=== PATIENT | female | born 1945 | race Caucasian/White ===

== ENCOUNTER 2017-07-09 14:15 | Emergency (ER) | payer MEDICARE, SELFPAY ==
[2017-07-09 14:16] VITALS: BP 149/80; PULSE 76; RESP 14; TEMP 36.8; O2SAT 95; BMI 26.4
--- NOTE | 2017-07-09 14:45 | ED.DCSUM_ITS ---
- ER Visit Summary Date of Service: 07/09/17 Chief Complaint: Dental pain History of Present Illness: The patient is a 71 F with right upper dental pain for the past couple days. She is now developing edema to her upper lip. Patient states she has terrible teeth. She does not currently have a dentist. Past history is reviewed and does include atrial fibrillation. She is currently on Coumadin. Physical Examination: Vital signs are unremarkable. Patient sitting in bedside chair no acute distress. Head and neck examination reveals multiple decayed teeth. The right maxillary central incisor is decayed down to the gumline with surrounding gum edema. There is no trismus. She has focal edema of the upper lip without focal abscess. There is no skin erythema or warmth. Heart is regular rate and rhythm. Lung sounds are clear. Test Results: [] Emergency Department Course and Treatment: Patient be treated with Pen-Vee K, first dose given here. She is given a dental clinic referral sheet. Treatment Plan: [] Disposition: Discharge Impression: Odontalgia This note was generated with Copanion dictation software. It may contain incorrect words, spelling, and punctuation that were not noted in review of the chart prior to signing ED Disposition - Plan for ED Patient: Chief Complaint: Dental Referrals: Monroe Burden MD [Primary Care Provider] -
--- NOTE | 2017-07-09 14:45 | ED.DEP ---
ED Disposition - Plan for ED Patient: Disposition: Home or Assisted Living Chief Complaint: Dental Instructions: ED Tooth Pain Prescriptions: Penicillin V Potassium 500 mg PO 4X/DAY #40 tablet Referrals: Monroe Burden MD [Primary Care Provider] - Additional Instructions: Dental list provided.
[2017-07-09] MEDS: Penicillin Vk 250 MG Tablet 500 MG PO (14:58)
[2017-07-09 14:59] VITALS: BP 151/76; PULSE 89; RESP 16; O2SAT 99
== END 2017-07-09 15:00 | disposition home or self-care (01) ==
PROVIDERS: Emergency Provider Emergency Medicine; Family Provider Family Medicine; PCP Family Medicine
DX: K08.89 Other specified disorders of teeth and supporting structures (principal); K02.9 Dental caries, unspecified; R22.0 Localized swelling, mass and lump, head; J44.9 Chronic obstructive pulmonary disease, unspecified; K21.9 Gastro-esophageal reflux disease without esophagitis; I10 Essential (primary) hypertension; Z86.39 Personal history of other endocrine, nutritional and metabolic disease; I48.91 Unspecified atrial fibrillation; Q87.40 Marfan syndrome, unspecified; Z79.01 Long term (current) use of anticoagulants; Z79.899 Other long term (current) 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
CPT/HCPCS: 99283

== ENCOUNTER 2019-05-24 15:53 | Inpatient (IN) | payer MEDICARE, SELFPAY ==
[2019-05-24] VITALS (11 sets, daily range): BP systolic 113–134; BP diastolic 71–90; PULSE 99–126; RESP 16–24; TEMP 36.4–36.8; O2SAT 93–911; BMI 28.0; BMI 28.1; BMI 27.8
--- NOTE | 2019-05-24 16:12 | EKG12_ITS ---
Test Reason : Blood Pressure : / mmHG Vent. Rate : 129 BPM Atrial Rate : 337 BPM P-R Int : 000 ms QRS Dur : 080 ms QT Int : 354 ms P-R-T Axes : 000 031 033 degrees QTc Int : 518 ms Atrial flutter with variable A-V block Abnormal ECG Confirmed by EDWARD MARKS, REJI ([id number]), marketing editor GAUDENCIO DALAL ([id number] on 05/27/2019 1:35:42 PM Referred By: Daphney Reynoso Confirmed By:REJI LEON MD
--- NOTE | 2019-05-24 16:12 | RAD_ITS ---
STUDY: X-RAY CHEST REASON FOR EXAM: Female, 73 years old. INCREASED SOB, DIAGNOSED WITH PNEUMONIA YESTERDAY TECHNIQUE: AP portable COMPARISON: October 19, 2014 FINDINGS: There is interstitial thickening in both lower lobes. There is nodular-type infiltrate in the right upper lobe.. There is no demonstrated pleural abnormality. Heart is upper normal size.. Normal mediastinum and claudia. Normal visualized pulmonary arteries. Mildly calcified aortic arch and descending thoracic aorta. Dorsal spine and shoulders demonstrate degenerative change. Normal visualized ribs, and clavicles. There is no demonstrated abnormality of the visualized soft tissue structures of the upper abdomen. RAD/Chest 1 View (Portable) IMPRESSION: Bilateral lower lobe interstitial thickening. Focal infiltrate in the right upper lobe Electronically Signed: Monroe Burkett MD at 16:40 EST , Service support ,
--- NOTE | 2019-05-24 16:14 | ED.VISSUMM ---
- ER Visit Summary Date of Service: 05/24/19 Chief Complaint: Shortness of breath History of Present Illness: The patient is a 73 F presenting with shortness of breath. She states this started 2 days ago. She was seen by her primary care physician yesterday and was diagnosed with pneumonia. She was started on doxycycline. She states he PCP called her and advised to go to the ER for further evaluation. She complains of worsening short of breath and productive cough. She denies fever. Denies chest pain. She states that she has history of A. fib. She cannot always tell when she is in A. fib. Her heart rate has been fast at home. Denies other complaints. Physical Examination: Vitals are stable. Heart rate 126. Patient is afebrile. Alert no acute distress. HEENT exam is unremarkable. Neck is supple. Lungs are wheezing bilaterally. Heart is irregularly irregular Abdomen is soft nontender nondistended. Extremities are unremarkable. Skin is warm and dry. No focal neurologic deficit. Remainder of exam is unremarkable. Emergency Department Course and Treatment: Patient was given albuterol, Atrovent aerosols. She was given Cardizem. Chest xray shows bilateral lower lobe interstitial thickening. Focal infiltrate in the right upper lobe. CBC, chemistries unremarkable other than sodium 134, potassium 3.3, glucose 149. INR is 1.9. Troponin is negative. Lactic acid 1.6. Blood cultures were sent. Influenza negative. Patient was given Rocephin, Zithromax IV. Repeat heart rate 105. Discussed with the hospitalist for admission. Disposition: Admission Impression: Pneumonia, A. fib with RVR This note was generated with Pieceable dictation software. It may contain incorrect words, spelling, and punctuation that were not noted in review of the chart prior to signing ED Disposition - Plan for ED Patient: Referrals: Wes Magallon MD [Primary Care Provider] -
[2019-05-24] MEDS: Albuterol 2.5 MG/3 ML VIAL.NEB. INHALATION ×3 (16:30)
[2019-05-24] MEDS: Ipratropium/Albuterol Sulfate 3 ML AMPUL.NEB INHALATION ×2 (16:30→19:41)
[2019-05-24] MEDS: dilTIAZem 25 MG/5 ML Vial 10 MG IV BOLUS (16:35)
[2019-05-24] MEDS: 0.9% Normal Saline 1,000 ML 999 ML IV (16:35)
[2019-05-24 16:48] LABS: Absolute Lymphocyte Count 1.88 X10^3/uL (0.83-4.51); Absolute Neutrophil Count 4.7 X10^3/uL (2.0-7.7); Basophil# 0.04 X10^3/uL; Basophil% 0.5 % (0-1); Eosinophil# 0.12 X10^3/uL; Eosinophils% 1.6 % (0-5); Hematocrit 38.5 % (37-47); Hemoglobin 12.5 g/dL (12.0-15.0); Lymphocyte # 1.88 X10^3/ul (4.0); Mean Corp Hgb Conc 32.5 g/dL (32-36); Mean Corpuscular Hgb 27.6 pg (27.0-32.0); Mean Platelet Vol. 9.1 fl (6.2-12.0); Monocyte# 0.76 X10^3/uL; Monocyte% 10.1 % (0-10); NRBC Flagged by Analyzer 0 % (0-5); Neutrophil # 4.69 X10^3/uL (2.7-7.7); Neutrophil % 62.3 % (47-70); Platelet Count 280 K/mm3 (150-450); RBC Distribution Width CV 15.2 % (11.6-14.6); RBC Distribution Width SD 46.5 fl (35.1-43.9); Red Blood Count 4.53 M/mm3 (4.2-5.4); White Blood Count 7.5 K/mm3 (4.4-11.0)
[2019-05-24 16:54] LABS: Anion Gap 8 (5-15); BUN 10 mg/dL (7-18); BUN/Creat Ratio 15.4 RATIO (10-20); Calcium,Total 8.6 mg/dL (8.5-10.1); Chloride 100 mmol/L (98-107); Creatinine, Serum 0.65 mg/dL (0.55-1.02); EST Glomerular Filtration Rate 95 mL/min (>60); Est Glom Filt Rate - Afr Amer 115 mL/min (>60); Estimated Creatinine Clearance 37.81 ml/min; Glucose 149 mg/dL (74-106); Lactic Acid 1.6 mmol/L (0.4-1.9); Potassium 3.3 mmol/L (3.5-5.1); Sodium Level 134 mmol/L (136-145)
[2019-05-24 16:55] LABS: International Normalized Ratio 1.9; Prothrombin Time (Protime)PT. 22.1 SECONDS (11.7-14.9)
--- NOTE | 2019-05-24 18:24 | PCM.HP.STD ---
Problem List (1) PNA (pneumonia) Status: Acute Qualifiers: Pneumonia type: due to unspecified organism Laterality: right (2) Hyponatremia Status: Acute (3) Hypokalemia Status: Acute (4) Pulmonary hypertension Status: Chronic Comment: PA systolic is 44 in 2018 (5) COPD (chronic obstructive pulmonary disease) Status: Chronic (6) GERD (gastroesophageal reflux disease) Status: Chronic (7) HLD (hyperlipidemia) Status: Chronic (8) HTN (hypertension) Status: Chronic (9) Marfans syndrome Status: Chronic (10) PAF (paroxysmal atrial fibrillation) Status: Chronic Comment: with RVR (11) Systolic CHF Status: Resolved (12) Chronic anticoagulation Status: Chronic (13) Subtherapeutic international normalized ratio (INR) Status: Acute History of Present Illness Date of Admission: 05/24/19 Chief Complaint: Shortness of breath The patient is a 73 year old F with a past medical history of paroxysmal atrial fibrillation, Marfan's syndrome, hypertension, pulmonary hypertension with a PA systolic estimated at 44, GERD, hyperlipidemia, COPD/asthma and chronic anticoagulation with warfarin who was seen by Tobi WANG on 05/23/19 and had a CXR showing PNA. She was started on Doxycycline and sent home. She presented to the ED at [facility] on 05/24/19 c/o increasing SOB. She has a cough productive of clear sputum. She denies fevers but states that she feels hot and cold at times. She denies any shaking chills. She denies any chest pain. He does not wear oxygen at home. She did not have a flu shot this year. Vital signs at presentation to the emergency room are temperature 97.5, pulse rate 126, blood pressure 132/90, respiratory rate 22 and she was 94% saturated on room air at presentation to the emergency room at 3:55 PM. She is currently on a 2 L nasal cannula with a respiratory rate of 22 and a pulse ox of 97%. She received 1 L of normal saline and heart rate is currently 105. She denies lightheadedness. She denies any swelling in her legs. CBC shows a white blood cell count of 7.5 with 62.3% neutrophils. Hemoglobin and platelets are within normal limits. INR is subtherapeutic at 1.9. Sodium is low at 134 and the potassium is low at 3.3. BUN is 10 with a creatinine of 0.65. Random blood sugar is elevated at 149 and she has no history of diabetes mellitus. Lactic acid was normal at 1.6. Troponin was less than 0.015. Portable chest x-ray shows infiltrate on the right side of the chest. She received Rocephin in the emergency room and has been taking doxycycline. She is being admitted to the hospital with a diagnosis of pneumonia and shortness of breath. Past Medical History Past Medical History (Chronic Problems): Chronic Problems Pulmonary hypertension (Chronic) PA systolic is 44 in 2018 Chronic anticoagulation (Chronic) HTN (hypertension) (Chronic) GERD (gastroesophageal reflux disease) (Chronic) HLD (hyperlipidemia) (Chronic) COPD (chronic obstructive pulmonary disease) (Chronic) PAF (paroxysmal atrial fibrillation) (Chronic) with RVR Marfans syndrome (Chronic) Allergies Latex, Natural Rubber Allergy (Verified 05/24/19 15:54) Rash rosuvastatin calcium [From Crestor] Allergy (Verified 05/24/19 18:07) myalgias ibuprofen Adverse Reaction (Verified 05/24/19 15:54) Nausea Home Medications: Ambulatory Orders Medication Instructions Recorded Atenolol [Tenormin (beta ted)] 25 mg PO BID #60 tablet 01/05/14 Omeprazole [Prilosec] 40 mg PO DAILY 10/19/14 diltiazem HCl 120 mg 120 mg PO DAILY #90 cap 02/05/19 capsule,extended release 24 hr Doxycycline Monohydrate 100 mg PO BID 05/24/19 Flecainide Acetate 50 mg PO BID 05/24/19 Furosemide [Lasix] 20 mg PO DAILY 05/24/19 Potassium Chloride 10 meq PO DAILY 05/24/19 Warfarin Sodium 2 mg PO MOFR 05/24/19 Warfarin Sodium 4 mg PO SUTUWETHSA 05/24/19 Surgical History: - - removal of fallopian tube for a tubal . Hysterectomy for an enlarged uterus, no cancer. Surgery on her eyes for displacement of the lens due to Marfan's Psychiatric History: No pertinent psych hx [employer] History: - - she is with 1 miscarriage and 1 tubal Lives: Spouse/ Significant Other Smoking Status: Never smoker Tobacco Use: Non-smoker Alcohol: None Drugs: None - *Family History Maternal History Items: Cancer, Diabetes, - - Her mother at the age of 78 of complications secondary to colon cancer. Her mother had diabetes and there is a history of diabetes on the maternal side of the family. Paternal History Items: - - Her father at the age of 88 of a myocardial infarction. Sibling History Items: Diabetes, - - She has 3 brothers who are all secondary to ruptured aneurysms from Marfan syndrome. She has a sister who does not have Marfan syndrome and has diet controlled diabetes mellitus. Review of Systems Constitutional: Reports: Chills - feels cold but, no shaking chills, Malaise. Denies: Anorexia, Fever, Weight Change Eyes: Denies: Blurred vision HEENT: Denies: Head Aches, Nasal Congestion, Sinus Congestion, Sinus Drainage, Sore Throat Cardiovascular: Denies: Chest Pain, Edema, Heaviness, Light Headedness, Orthopnea, Palpitations Respiratory: Reports: Cough, Sputum production - clear. Denies: Shortness of breath at rest Gastrointestinal: Denies: Abdominal Pain, Diarrhea, Nausea, Vomiting Genitourinary: Denies: Dysuria Musculoskeletal: Denies: Joint Pain, Joint Tenderness Skin: Denies: Jaundice, Rash, Wounds Neurological: Denies: Confusion, Focal weakness, Numbness, Tingling, Tremor, Seizures Psychiatric: Denies: Anxiety, Depression, Homicidal Ideations, Suicidal Ideations Endocrine: Denies: Change in Body Habitus Hematologic/ Lymphatic: Denies: Easy Bruising, Easy Bleeding, Hx of blood clot VTE Information - Inpt Only VTE Present on Admission: No VTE Mechan Device Prophylaxis: None VTE Pharm Prophylaxis ordered?: No Reason prophylaxis not ordered:: Treatment Not Indicated - she is on Warfarin for PAF Patient Problems: Active and Suspected Problems PNA (pneumonia) (Acute) Hyponatremia (Acute) Hypokalemia (Acute) Subtherapeutic international normalized ratio (INR) (Acute) - Physical Exam Vitals/I&O's: Vital Signs Temp Pulse Resp BP Pulse Ox 97.7 F L 105 H 22 H 116/82 H 97 05/24/19 17:00 05/24/19 17:00 05/24/19 17:00 05/24/19 17:00 05/24/19 17:00 Oxygen Flow Rate (L/min) 2 Oxygen Delivery Method Nasal Cannula Weight: 148 lb 12.992 oz Body Mass Index (BMI) 28.0 General: Alert, Oriented x3, Cooperative, No apparent distress, Well developed, Well nourished, - - did not cough while I was in the room HEENT: Atraumatic, PERRLA, EOMI, Normocephalic Oral: No Gingival or Mucosal Lesions/ Ulcerations, Dry Mucosa Neck: Supple, No JVD, Negative Carotid Bruits, No Nodes, Trachea Midline, - - Carotids have brisk upstroke and good pulse volume bilaterally. Lungs: - - Coarse crackles and rhonchi on the right side, left lung is clear to auscultation. She has oxygen in place at 2 L/min. She is not tachypneic and she has no conversational dyspnea and no accessory muscle use. Cardiovascular: Normal S1, Normal S2, No murmurs, Irregular Rate, No rub noted, No Gallop Abdomen: Bowel Sounds Present, Soft, Non Tender, Non-Distended Extremities: No clubbing, No cyanosis, No edema, Peripheral Pulses Normal, - - She has superficial varicosities of both lower extremities. Skin: No rashes Musculoskeletal: No Muscle Wasting Neurological: Cranial nerves II-XII grossly intact, Neuro grossly intact Psych/Mental Status: Appropriate, Flat Affect Microbiology Past 72 Hours 05/24/19 16:20 Mucosa - Nose Influenza Types A,B Direct FA (MORIAH) - Final Laboratory Results 05/24/19 16:12: WBC 7.5, RBC 4.53, Hgb 12.5, Hct 38.5, MCV 85.0, MCH 27.6, MCHC 32.5, RDW Std Deviation 46.5 H, RDW Coeff of Angelo 15.2 H, Plt Count 280, MPV 9.1, Immature Gran % (Auto) 0.500, Neut % (Auto) 62.3, Lymph % (Auto) 25.0, [place] % (Auto) 10.1 H, Eos % (Auto) 1.6, Baso % (Auto) 0.5, Absolute Neuts (auto) 4.7, Absolute Lymphs (auto) 1.88, Nucleated RBC % 0 05/24/19 16:12: PT 22.1 H, INR 1.9 05/24/19 16:12: Sodium 134 L, Potassium 3.3 L, Chloride 100, Carbon Dioxide 26.0, Anion Gap 8, BUN 10, Creatinine 0.65, Estim Creat Clear Calc 37.81, Est GFR (MDRD) Af Amer 115, Est GFR (MDRD) Non-Af 95, BUN/Creatinine Ratio 15.4, Glucose 149 H, Calcium 8.6, Troponin I < 0.015 05/24/19 16:12: Lactic Acid 1.6 Current Medications Ceftriaxone Sodium (Rocephin) 1 gm in 50 mls @ 100 mls/hr IV X1 ONE Stop: 05/24/19 18:40 Assessment/Plan All Active Problems PNA (pneumonia) (Acute) Hyponatremia (Acute) Hypokalemia (Acute) Subtherapeutic international normalized ratio (INR) (Acute) Systolic CHF (Resolved) Impressions 1. Right side pneumonia, non-severe, with SOB but no hypoxia. Continue Doxycycline and start Rocephin. Influenza swab is negative. Will order Legionella and streptococcal antigens in the urine, respiratory panel and a sputum culture. Blood cultures were sent from the emergency department. 2. Paroxysmal atrial fibrillation with rapid ventricular response-improved with hydration. 3. Hyponatremia-mild. She was administered 1 L of normal saline in the emergency room. Will recheck CMP in the a.m. 4. Hypokalemia-supplementation ordered. Recheck lab in the a.m. 5. COPD/asthma in a patient who has never been a smoker. She has coarse rhonchi. Will order DuoNebs every 6 hours and every 2 hours PRN albuterol aerosols for increased shortness of breath/wheezing. Incentive spirometer has been ordered. No steroids at this time but, will consider if she has wheezing rather than coarse rhonchi. 6. Hyperglycemia with no hx of DM II - HGBA1C ordered. 7. Hyperlipidemia/Marfan syndrome/pulmonary hypertension/GERD/hypertension - continue home medications Check a mag now and supplement to keep the MAG at around 2. Recheck lab in the AM PA and LAT CXR in the AM.......portable CXR is a poor film She does not have sepsis. Tachycardia is due to dehydration and improved significantly after a fluid bolus. WBC is normal with a normal diff. LA is WNL and she is AF. She is not hypoxic and she is not tachypneic on my exam. Code Visit Inpatient E&M: 96497 Init Hosp L2
[2019-05-24] MEDS: Ceftriaxone 1 GM/50 ML BAG IV (19:06)
[2019-05-24] MEDS: Atenolol 25 MG Tablet PO (20:12)
[2019-05-24] MEDS: guaiFENesin 1,200 MG Tablet 1200 MG PO (20:12)
[2019-05-24] MEDS: Flecainide 100 MG Tablet 50 MG PO (20:20)
[2019-05-24] MEDS: Doxycycline 100 MG CAPSULE PO (22:47)
[2019-05-25] VITALS (12 sets, daily range): BP systolic 113–131; BP diastolic 71–86; PULSE 96–124; RESP 18–20; TEMP 36.4–36.7; O2SAT 92–96
[2019-05-25 01:37] LABS: M R Staph aureus DNA By PCR Negative (Negative); Probe Check PASS; Specimen Processing Control PASS
[2019-05-25] MEDS: Ipratropium/Albuterol Sulfate 3 ML AMPUL.NEB INHALATION ×2 (06:48→12:59)
[2019-05-25 06:58] LABS: Absolute Lymphocyte Count 1.94 X10^3/uL (0.83-4.51); Absolute Neutrophil Count 4.1 X10^3/uL (2.0-7.7); Basophil# 0.03 X10^3/uL; Basophil% 0.4 % (0-1); Eosinophil# 0.17 X10^3/uL; Eosinophils% 2.4 % (0-5); Hematocrit 35.7 % (37-47); Hemoglobin 11.4 g/dL (12.0-15.0); Lymphocyte # 1.94 X10^3/ul (4.0); Lymphocyte % 27.4 % (19-41); Mean Corp Hgb Conc 31.9 g/dL (32-36); Mean Corpuscular Hgb 27.1 pg (27.0-32.0); Mean Platelet Vol. 9.2 fl (6.2-12.0); Monocyte# 0.82 X10^3/uL; Monocyte% 11.6 % (0-10); NRBC Flagged by Analyzer 0 % (0-5); Neutrophil # 4.09 X10^3/uL (2.7-7.7); Neutrophil % 57.8 % (47-70); POSITIVE MORPHOLOGY YES; Platelet Count 258 K/mm3 (150-450); RBC Distribution Width CV 15.3 % (11.6-14.6); RBC Distribution Width SD 47.4 fl (35.1-43.9); White Blood Count 7.1 K/mm3 (4.4-11.0)
[2019-05-25 07:00] LABS: Differential Indicated SCAN CRITERIA MET
[2019-05-25 07:04] LABS: International Normalized Ratio 2.3; Prothrombin Time (Protime)PT. 25.4 SECONDS (11.7-14.9)
[2019-05-25 07:12] LABS: ALB/GLOB Ratio 0.9 RATIO (0.9-2.4); AST(SGOT) 24 U/L (15-37); Alanine Aminotransfer ALT/SGPT 25 U/L (13-56); Albumin, Serum 2.9 g/dL (3.2-5.0); Alkaline Phosphatase 77 U/L (45-117); Anion Gap 6 (5-15); BUN 9 mg/dL (7-18); BUN/Creat Ratio 17.7 RATIO (10-20); Calcium,Total 7.9 mg/dL (8.5-10.1); Chloride 105 mmol/L (98-107); Creatinine, Serum 0.51 mg/dL (0.55-1.02); EST Glomerular Filtration Rate 126 mL/min (>60); Est Glom Filt Rate - Afr Amer 152 mL/min (>60); Estimated Creatinine Clearance 37.81 ml/min; Globulin 3.4 g/dL (2.2-4.2); Glucose 84 mg/dL (74-106); Magnesium 1.9 mg/dL (1.6-2.6); Potassium 3.8 mmol/L (3.5-5.1); Protein, Total 6.3 g/dL (6.4-8.2); Sodium Level 137 mmol/L (136-145)
[2019-05-25 07:48] LABS: Differential Comment SCANNED; Reactive Lymphocyte 1+
[2019-05-25] MEDS: Atenolol 25 MG Tablet PO ×2 (07:52→19:56)
[2019-05-25] MEDS: dilTIAZem CD 120 MG Capsule PO (07:52)
[2019-05-25] MEDS: guaiFENesin 1,200 MG Tablet 1200 MG PO ×2 (07:52→19:56)
[2019-05-25] MEDS: Pantoprazole Sodium 40 MG Tablet PO (07:52)
[2019-05-25] MEDS: Doxycycline 100 MG CAPSULE PO (07:53)
[2019-05-25] MEDS: Flecainide 100 MG Tablet 50 MG PO ×2 (07:53→19:56)
--- NOTE | 2019-05-25 10:40 | PCM.PN.HOSP ---
Patient Problems: Active and Suspected Problems PNA (pneumonia) (Acute) Hyponatremia (Acute) Hypokalemia (Acute) Subtherapeutic international normalized ratio (INR) (Acute) Subjective: Pt states that she is feeling a bit better today. Coughing less with less sputum production. Appetite is okay. Vitals/I&O's: Vital Signs Temp Pulse Resp BP Pulse Ox 98.0 F 108 H 20 H 113/71 92 05/25/19 10:20 05/25/19 10:20 05/25/19 10:20 05/25/19 10:20 05/25/19 10:20 Oxygen Flow Rate (L/min) 2 Oxygen Delivery Method Nasal Cannula Weight: 67.3 kg Body Mass Index (BMI) 27.8 Intake and Output for Last 24 Hours 05/23/19 05/24/19 05/25/19 23:59 23:59 23:59 Intake Total 1170 / 1170 50 / 50 Output Total 600 / 600 50 / 50 Balance 570 / 570 0 / 0 General: Alert, Oriented x3, Cooperative, No apparent distress, Well developed, Well nourished, - - friends at bedside, appears well, non-toxic appearing HEENT: Atraumatic, PERRLA, EOMI, Normocephalic, EAC Clear Oral: Moist Mucosa, No Gingival or Mucosal Lesions/ Ulcerations Neck: Supple, No JVD, Negative Carotid Bruits, Negative Hepatojugular Reflux, No Nodes, No Nuchal Rigidity, Trachea Midline, Thyroid Normal Size and Texture Lungs: No wheeze, No rales, Rhonchi - R ML, - - no accesory mm use Cardiovascular: Normal S1, Normal S2, No murmurs, Irregular Rate, No rub noted, No Gallop, Tachycardic - mild, - - irreg/irreg Extremities: No clubbing, No cyanosis, No edema, Capillary Refill Less than 3 Seconds Skin: No rashes, No breakdown, - - abnormal nail formation Musculoskeletal: No Tenderness to Palpation of Joints or Extremities, No Muscle Wasting Lymphatic: No Cervical, Supraclavicular, or Inguinal Adenopathy Neurological: Cranial nerves II-XII grossly intact, Deep Tendon Reflexes 2+/4 and Symmetrical, Neuro grossly intact, Motor Exam 5/5 strength throughout Psych/Mental Status: Normal Affect, Appropriate, Alert and oriented to time, place, person, mood and affect Microbiology Past 72 Hours 05/24/19 18:53 Urine, Clean Catch Legionella Antigen - Final 05/24/19 18:53 Urine, Clean Catch Streptococcus pneumoniae Antigen (M - Final 05/24/19 16:20 Mucosa - Nose Influenza Types A,B Direct FA (MORIAH) - Final Laboratory Results 05/24/19 16:12: WBC 7.5, RBC 4.53, Hgb 12.5, Hct 38.5, MCV 85.0, MCH 27.6, MCHC 32.5, RDW Std Deviation 46.5 H, RDW Coeff of Angelo 15.2 H, Plt Count 280, MPV 9.1, Immature Gran % (Auto) 0.500, Neut % (Auto) 62.3, Lymph % (Auto) 25.0, [place] % (Auto) 10.1 H, Eos % (Auto) 1.6, Baso % (Auto) 0.5, Absolute Neuts (auto) 4.7, Absolute Lymphs (auto) 1.88, Nucleated RBC % 0 05/24/19 16:12: PT 22.1 H, INR 1.9 05/24/19 16:12: Sodium 134 L, Potassium 3.3 L, Chloride 100, Carbon Dioxide 26.0, Anion Gap 8, BUN 10, Creatinine 0.65, Estim Creat Clear Calc 37.81, Est GFR (MDRD) Af Amer 115, Est GFR (MDRD) Non-Af 95, BUN/Creatinine Ratio 15.4, Glucose 149 H, Calcium 8.6, Troponin I < 0.015 05/24/19 16:12: Lactic Acid 1.6 05/24/19 16:12: Magnesium 2.0 05/25/19 00:15: MRSA (PCR) Negative 05/25/19 06:10: WBC 7.1, RBC 4.20, Hgb 11.4 L, Hct 35.7 L, MCV 85.0, MCH 27.1, MCHC 31.9 L, RDW Std Deviation 47.4 H, RDW Coeff of Angelo 15.3 H, Plt Count 258, MPV 9.2, Immature Gran % (Auto) 0.400, Neut % (Auto) 57.8, Lymph % (Auto) 27.4, [place] % (Auto) 11.6 H, Eos % (Auto) 2.4, Baso % (Auto) 0.4, Absolute Neuts (auto) 4.1, Absolute Lymphs (auto) 1.94, Nucleated RBC % 0, Differential Comment SCANNED, Reactive Lymphocytes 1+ 05/25/19 06:10: PT 25.4 H, INR 2.3 05/25/19 06:10: Sodium 137, Potassium 3.8, Chloride 105, Carbon Dioxide 26.0, Anion Gap 6, BUN 9, Creatinine 0.51 L, Estim Creat Clear Calc 37.81, Est GFR (MDRD) Af Amer 152, Est GFR (MDRD) Non-Af 126, BUN/Creatinine Ratio 17.7, Glucose 84, Calcium 7.9 L, Phosphorus 3.0, Magnesium 1.9, Total Bilirubin 0.40, AST 24, ALT 25, Alkaline Phosphatase 77, Total Protein 6.3 L, Albumin 2.9 L, Globulin 3.4, Albumin/Globulin Ratio 0.9 Current Medications Acetaminophen (Tylenol) 650 mg PO Q6H PRN PRN PRN Reason: Pain Score 1-3/Temp > 100.7 F Albuterol Sulfate (Ventolin Aerosols) 2.5 mg INHALATION Q2H PRN PRN PRN Reason: SOB/Wheezing Albuterol/Ipratropium (Duoneb) 3 ml INHALATION Q6H.RT [facility] Last Admin: 05/25/19 06:48 Dose: 3 ml Documented by: Atenolol (Tenormin (Beta Barber)) 25 mg PO BID [facility] Last Admin: 05/25/19 07:52 Dose: 25 mg Documented by: Bisacodyl (Dulcolax) 5 mg PO DAILY PRN PRN PRN Reason: Constipation Diltiazem HCl (Cardizem Cd) 120 mg PO DAILY [facility] Last Admin: 05/25/19 07:52 Dose: 120 mg Documented by: Diltiazem HCl (Cardizem) 30 mg PO Q6H PRN PRN PRN Reason: HR > 110 Docusate Sodium (Colace) 100 mg PO BID [facility] Last Admin: 05/25/19 07:52 Dose: Not Given Documented by: Doxycycline Monohydrate (Doxycycline) 100 mg PO BID [facility] Last Admin: 05/25/19 07:53 Dose: 100 mg Documented by: Flecainide Acetate (Tambocor) 50 mg PO BID [facility] Last Admin: 05/25/19 07:53 Dose: 50 mg Documented by: Guaifenesin (Mucinex) 1,200 mg PO BID [facility] Last Admin: 05/25/19 07:52 Dose: 1,200 mg Documented by: Ceftriaxone Sodium 2 gm/ (Sodium Chloride) 50 mls @ 100 mls/hr IV Q24 [facility] Stop: 06/01/19 10:01 Last Infusion: 05/25/19 10:17 Dose: Infused Documented by: Melatonin (Melatonin) 3 mg PO QHS PRN PRN PRN Reason: INSOMNIA Pantoprazole Sodium (Protonix) 40 mg PO DAILY [facility] Last Admin: 05/25/19 07:52 Dose: 40 mg Documented by: Potassium Chloride (K-Dur) 10 meq PO DAILY@0800 [facility] Last Admin: 05/25/19 07:51 Dose: 10 meq Documented by: Prochlorperazine Edisylate (Compazine Iv) 5 mg IV Q6H PRN PRN PRN Reason: NAUSEA/VOMITING Sodium Chloride () 10 - 40 ml IV UD PRN PRN Reason: SALINE FLUSH Warfarin Sodium (Coumadin (Pbkc)) 4 mg PO DAILY@1700 [facility] STROKE Vital Signs/Narrative: Vital Signs Temp Pulse Resp BP Pulse Ox 05/25/19 10:20 98.0 F 108 H 20 H 113/71 92 05/25/19 06:48 108 H Medical Necessity - Tobacco Use Smoking Status: Never smoker Tobacco Use: Non-smoker Assessment/Plan All Active Problems PNA (pneumonia) (Acute) Hyponatremia (Acute) Hypokalemia (Acute) Subtherapeutic international normalized ratio (INR) (Acute) Systolic CHF (Resolved) RML PNA -S. Pneumo and legionella neg -flu neg -sputum and blood cx pending -continue abx as ordered and await cx -CXR PA and Lat are pending -consider CT chest -SpO2 92-94 on N/C at 2 L -add IS Hyponatremia -resolved Hypokalemia -resolved PAH -RVSP of 44 2018 -monitor for s/o volume overload PAF -currently in a-fib (HR 100-110) -continue BB/Flecanide/CCB as pt takes as outpt -continue coumadin and follow INR (2.3 today) -has appt to see Dr. Arriaga in 07/2019 ([address] Dr[address] Ludwig) Mild Normocytic Anemia -no s/o blood loss -will trend GERD -continue home meds HPL -on no home therapy -has Crestor allergy Marfan's Syndrome -no current issues DVT Prophylaxis -no need for anticoagulation as pt is fully anticoagulated with coumadin and INR is therapeutic today FULL CODE Code Visit Inpatient E&M: 20870 Subs Hosp L3
--- NOTE | 2019-05-25 11:48 | CASEMGMT ---
RN CM Assessment Presentation: Pneumonia, Hx of COPD Intro role of CM and purpose of RN CM assessment to patient. Pt is awake, alert and able to participate in assessment. Demographics, PCP and Pharmacy verified. Pt states she lives independently with her and daughter. Pt denies care needs and plans to return home on dc. PCP: Dr. Magallon (changed in demographics) Specialists: Dr. Arriaga, cardiology Preferred Pharmacy: [facility] Insurance: [employer] Prescription Benefit: yes LNOK: , Lalo Fishman Living Arrangements: Lives independently with her . No care needs identified. Transportation: family can drive if pt doesn't DME: states she does not use ambulatory DME, however has access to WC and Cane. Denies oxygen, cpap, nebulizer @ home. HHC/SNF: denies Patient DC goals: Home DC PLAN: Home. Pt encouraged to contact CM if dc needs or concerns arise. Delvis GAYN RN ACM
[2019-05-26] VITALS (31 sets, daily range): BP systolic 115–136; BP diastolic 68–94; PULSE 91–131; RESP 15–28; TEMP 36.6–37.6; O2SAT 91–96
[2019-05-26] MEDS: Ipratropium/Albuterol Sulfate 3 ML AMPUL.NEB INHALATION (01:23)
[2019-05-26] MEDS: dilTIAZem 30 MG Tablet PO (02:28)
[2019-05-26] MEDS: Doxycycline 100 MG CAPSULE PO ×2 (04:33→22:22)
--- NOTE | 2019-05-26 05:45 | RAD_ITS ---
STUDY: X-RAY CHEST REASON FOR EXAM: Female, 73 years old. PNEUMONIA, COUGH, SOB TECHNIQUE: PA and lateral views of the chest. COMPARISON: 05/24/2019 FINDINGS: There is a focal opacity in the right upper lobe. There is blunting of the costophrenic angle there is persistent slight blunting of the costophrenic angle on the right. There is focal opacity in the right middle lobe. There is no demonstrated pleural abnormality. There is mild cardiac enlargement. Normal mediastinum and claudia. Normal visualized pulmonary arteries. Normal visualized aortic arch and descending thoracic aorta. Normal visualized thoracic spine. Normal visualized ribs, clavicles, and shoulders. There is no demonstrated abnormality of the visualized soft tissue structures of the upper abdomen. RAD/Chest PA and Lateral IMPRESSION: Persistent right upper lobe, right middle lobe opacities which suspicious for pneumonia. Trace right effusion. New small left effusion. Cannot exclude superimposed edema. Electronically Signed: Macy Groves MD at 6:10 EST Tel , Service support ,
[2019-05-26 06:49] LABS: International Normalized Ratio 2.6; Prothrombin Time (Protime)PT. 28.1 SECONDS (11.7-14.9)
[2019-05-26 07:04] LABS: Anion Gap 7 (5-15); BUN 11 mg/dL (7-18); BUN/Creat Ratio 18.2 RATIO (10-20); Calcium,Total 8.5 mg/dL (8.5-10.1); Chloride 105 mmol/L (98-107); Creatinine, Serum 0.61 mg/dL (0.55-1.02); EST Glomerular Filtration Rate 103 mL/min (>60); Est Glom Filt Rate - Afr Amer 124 mL/min (>60); Estimated Creatinine Clearance 37.81 ml/min; Glucose 95 mg/dL (74-106); Potassium 3.7 mmol/L (3.5-5.1); Sodium Level 137 mmol/L (136-145)
[2019-05-26] MEDS: Atenolol 25 MG Tablet PO ×2 (08:36→22:30)
[2019-05-26] MEDS: Flecainide 100 MG Tablet 50 MG PO (08:37)
[2019-05-26] MEDS: guaiFENesin 1,200 MG Tablet 1200 MG PO ×2 (08:37→22:22)
[2019-05-26] MEDS: Pantoprazole Sodium 40 MG Tablet PO (08:37)
[2019-05-26] MEDS: dilTIAZem CD 120 MG Capsule PO (08:37)
[2019-05-26] MEDS: Docusate Sodium 100 MG Capsule PO ×2 (08:38→22:22)
--- NOTE | 2019-05-26 10:18 | PN_ITS ---
Patient Problems: Active and Suspected Problems PNA (pneumonia) (Acute) Hyponatremia (Acute) Hypokalemia (Acute) Subtherapeutic international normalized ratio (INR) (Acute) Subjective: States that she was SOB more when she was lying down but is better now that she is sitting up. Still states that overall she is feeling better. Appetite is okay. Vitals/I&O's: Vital Signs Temp Pulse Resp BP Pulse Ox 97.9 F 112 H 18 128/71 H 94 05/26/19 04:47 05/26/19 06:45 05/26/19 04:47 05/26/19 04:47 05/26/19 07:44 Oxygen Flow Rate (L/min) 4 Oxygen Delivery Method Nasal Cannula Weight: 67.9 kg Body Mass Index (BMI) 27.8 Intake and Output for Last 24 Hours 05/24/19 05/25/19 05/26/19 23:59 23:59 23:59 Intake Total 1170 / 1170 710 / 1070 650 / 650 Output Total 600 / 600 50 / 50 Balance 570 / 570 660 / 1020 650 / 650 General: Alert, Oriented x3, Cooperative, No apparent distress, Well developed, Well nourished, - - sitting up in chair, appears comfortable HEENT: Atraumatic, PERRLA, EOMI, Normocephalic, EAC Clear Oral: Moist Mucosa, No Gingival or Mucosal Lesions/ Ulcerations, - - no thrush Neck: Supple, No JVD, Negative Carotid Bruits, Negative Hepatojugular Reflux, No Nodes, No Nuchal Rigidity, Trachea Midline, Thyroid Normal Size and Texture Cardiovascular: Normal S1, Normal S2, No murmurs, Irregular Rate, No rub noted, No Gallop, Tachycardic, - - irreg/irreg Abdomen: Bowel Sounds Present, Soft, Non Tender, Non-Distended, No Hepato- splenomegaly, No hernias noted Extremities: No clubbing, No cyanosis, Capillary Refill Less than 3 Seconds, Edema - trace B LE Skin: No rashes, No breakdown Musculoskeletal: No Tenderness to Palpation of Joints or Extremities, No Muscle Wasting, Arthritic Changes - hands Lymphatic: No Cervical, Supraclavicular, or Inguinal Adenopathy Neurological: Cranial nerves II-XII grossly intact, Deep Tendon Reflexes 2+/4 and Symmetrical, Neuro grossly intact, Motor Exam 5/5 strength throughout Psych/Mental Status: Appropriate, Alert and oriented to time, place, person, mood and affect Microbiology Past 72 Hours 05/24/19 19:35 Mucosa - Nasopharyngeal Respiratory Panel (PCR) - Final 05/24/19 18:53 Urine, Clean Catch Legionella Antigen - Final 05/24/19 18:53 Urine, Clean Catch Streptococcus pneumoniae Antigen (M - Final 05/24/19 16:20 Mucosa - Nose Influenza Types A,B Direct FA (MORIAH) - Final Laboratory Results 05/26/19 05:30: PT 28.1 H, INR 2.6 05/26/19 05:30: Sodium 137, Potassium 3.7, Chloride 105, Carbon Dioxide 25.0, Anion Gap 7, BUN 11, Creatinine 0.61, Estim Creat Clear Calc 37.81, Est GFR (MDRD) Af Amer 124, Est GFR (MDRD) Non-Af 103, BUN/Creatinine Ratio 18.2, Glucose 95, Calcium 8.5 Current Medications Acetaminophen (Tylenol) 650 mg PO Q6H PRN PRN PRN Reason: Pain Score 1-3/Temp > 100.7 F Albuterol Sulfate (Ventolin Aerosols) 2.5 mg INHALATION Q2H PRN PRN PRN Reason: SOB/Wheezing Albuterol/Ipratropium (Duoneb) 3 ml INHALATION Q6H.RT [facility] Last Admin: 05/26/19 06:50 Dose: Not Given Documented by: Atenolol (Tenormin (Beta Barber)) 25 mg PO BID [facility] Last Admin: 05/26/19 08:36 Dose: 25 mg Documented by: Bisacodyl (Dulcolax) 5 mg PO DAILY PRN PRN PRN Reason: Constipation Diltiazem HCl (Cardizem Cd) 120 mg PO DAILY [facility] Last Admin: 05/26/19 08:37 Dose: 120 mg Documented by: Diltiazem HCl (Cardizem) 30 mg PO Q6H PRN PRN PRN Reason: HR > 110 Last Admin: 05/26/19 02:28 Dose: 30 mg Documented by: Docusate Sodium (Colace) 100 mg PO BID [facility] Last Admin: 05/26/19 08:38 Dose: 100 mg Documented by: Doxycycline Monohydrate (Doxycycline) 100 mg PO BID [facility] Last Admin: 05/26/19 04:33 Dose: 100 mg Documented by: Flecainide Acetate (Tambocor) 50 mg PO BID [facility] Last Admin: 05/26/19 08:37 Dose: 50 mg Documented by: Furosemide (Lasix) 40 mg IV X1 ONE Stop: 05/26/19 10:18 Guaifenesin (Mucinex) 1,200 mg PO BID [facility] Last Admin: 05/26/19 08:37 Dose: 1,200 mg Documented by: Ceftriaxone Sodium 2 gm/ (Sodium Chloride) 50 mls @ 100 mls/hr IV Q24 [facility] Stop: 06/01/19 10:01 Last Infusion: 05/26/19 09:59 Dose: Infused Documented by: Melatonin (Melatonin) 3 mg PO QHS PRN PRN PRN Reason: INSOMNIA Pantoprazole Sodium (Protonix) 40 mg PO DAILY [facility] Last Admin: 05/26/19 08:37 Dose: 40 mg Documented by: Potassium Chloride (K-Dur) 10 meq PO DAILY@0800 [facility] Last Admin: 05/26/19 08:39 Dose: 10 meq Documented by: Prochlorperazine Edisylate (Compazine Iv) 5 mg IV Q6H PRN PRN PRN Reason: NAUSEA/VOMITING Sodium Chloride () 10 - 40 ml IV UD PRN PRN Reason: SALINE FLUSH Warfarin Sodium (Coumadin (Pbkc)) 4 mg PO DAILY@1700 [facility] Last Admin: 05/25/19 16:52 Dose: 4 mg Documented by: STROKE Vital Signs/Narrative: Vital Signs Pulse Pulse Ox 05/26/19 07:44 94 05/26/19 06:45 112 H Medical Necessity - Tobacco Use Smoking Status: Never smoker Tobacco Use: Non-smoker Assessment/Plan All Active Problems PNA (pneumonia) (Acute) Hyponatremia (Acute) Hypokalemia (Acute) Subtherapeutic international normalized ratio (INR) (Acute) Systolic CHF (Resolved) Acute Respiratory Insufficency 2/2 RML/RUL PNA -S. Pneumo and legionella neg -flu neg -sputum and blood cx pending -continue abx as ordered and await cx--> blood and sputum are still pending -consider CT chest if doesn't improve -SpO2 94 on N/C at 4 L -continue IS -add acapella -Lasix 40 IVP toady PAH -RVSP of 44 2018 -Lasix 40 mg IVP today and restart PO lasix tomorrow PAF -currently in a-fib (HR higher overnight) -continue BB/Flecanide/CCB as pt takes as outpt for now -consult cardiology -continue coumadin and follow INR (2.6 today) -2.3-->2.6 -if rises tomorrow will decrease dose of coumadin -has appt to see Dr. Arriaga in 07/2019 (was seeing Dr. Ludwig) Mild Normocytic Anemia -no s/o blood loss -will trend -stable today GERD -continue home meds HPL -on no home therapy -has Crestor allergy Marfan's Syndrome -no current issues DVT Prophylaxis -no need for anticoagulation as pt is fully anticoagulated with coumadin and INR is therapeutic today FULL CODE Code Visit Inpatient E&M: 42750 Subs Hosp L3
[2019-05-26] MEDS: Furosemide 40 MG/4 ML Vial IV (10:44)
[2019-05-26] MEDS: 0.9% Saline Lock 10 ML Syringe IV (10:44)
--- NOTE | 2019-05-26 13:32 | PCM.CONS.C ---
Problem List (1) Paroxysmal atrial fibrillation with RVR Status: Acute Reason for Consult Date of Consultation: 05/26/19 Reason for Consultation: Atrial fibrillation with fast ventricular rate History of Present Illness: The patient is a 73 year old F was admitted for shortness of breath for 1 week with productive cough and pneumonia on chest x-ray. Patient has been treated for paroxysmal atrial fibrillation for at least 4 years. 2015, patient had EKG and echocardiogram done in this hospital and showed atrial fibrillation. Ejection fraction was normal. Left atrium was mildly dilated. There was mild mitral and tricuspid insufficiency. At that time estimated right ventricular systolic pressure was 44 mm suggestive of mild pulmonary hypertension. Patient has been reasonably active. She has not seen a compliance administrator for over 1 year. She has been followed by Dr. Montenegro at the [place] outpatient clinic. Echocardiogram and CT of the chest were performed 3 weeks ago according to the patient and were told to be normal. 3 weeks ago patient was examined by her general practitioner and she was not told that she had irregular rhythm. She has been taking flecainide, atenolol, diltiazem and Coumadin for the paroxysmal atrial fibrillation. Patient denies any history of chest pain, myocardial infarct or CVA. In the good day, patient can do anything she wants to do with no difficulty. She has been treated for hypertension and hyperlipidemia. She could not take statin because of severe muscle pain and weakness. She is a non-smoker and nondrinker of alcohol. She does drink some caffeine from time to time. After admission patient was found to have atrial fibrillation and fast ventricular rate. Hemodynamically it has been stable. She denies any chest discomfort. Past Medical History Allergies/Adverse Reactions: Allergies Latex, Natural Rubber Allergy (Verified 05/24/19 15:54) Rash rosuvastatin calcium [From Crestor] Allergy (Verified 05/24/19 18:07) myalgias ibuprofen Adverse Reaction (Verified 05/24/19 15:54) Nausea Home Medications: Ambulatory Orders Medication Instructions Recorded Atenolol [Tenormin (beta ted)] 25 mg PO BID #60 tablet 01/05/14 Omeprazole [Prilosec] 40 mg PO DAILY 10/19/14 diltiazem HCl 120 mg 120 mg PO DAILY #90 cap 02/05/19 capsule,extended release 24 hr Doxycycline Monohydrate 100 mg PO BID 05/24/19 Flecainide Acetate 50 mg PO BID 05/24/19 Furosemide [Lasix] 20 mg PO DAILY 05/24/19 Potassium Chloride 10 meq PO DAILY 05/24/19 Warfarin Sodium 2 mg PO MOFR 05/24/19 Warfarin Sodium 4 mg PO SUTUWETHSA 05/24/19 Past Medical History (Chronic Problems): Chronic Problems Pulmonary hypertension (Chronic) PA systolic is 44 in 2018 Chronic anticoagulation (Chronic) HTN (hypertension) (Chronic) GERD (gastroesophageal reflux disease) (Chronic) HLD (hyperlipidemia) (Chronic) COPD (chronic obstructive pulmonary disease) (Chronic) PAF (paroxysmal atrial fibrillation) (Chronic) with RVR Marfans syndrome (Chronic) Surgical History: - - removal of fallopian tube for a tubal . Hysterectomy for an enlarged uterus, no cancer. 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 Her mother had diabetes and there is a history of diabetes on the maternal side of the family. Paternal History Items: - - Her father at the age of 88 of a myocardial infarction. Sibling History Items: Diabetes, - - She has 3 brothers who are all secondary to ruptured aneurysms from Marfan syndrome. She has a sister who does not have Marfan syndrome and has diet controlled diabetes mellitus. Lives: Spouse/ Significant Other Smoking Status: Never smoker Tobacco Use: Non-smoker Alcohol: None Drugs: None Review of Systems - Review of Systems General: Reports: Fever, Fatigue, Malaise, Chills Cardiovascular: Reports: Shortness of Breath. Denies: Chest Discomfort Respiratory: Reports: Cough, Sputum Production, Shortness of Breath Skin: Denies: Rash Objective: Vital Signs Temp Pulse Resp BP Pulse Ox 98.1 F 119 H 20 H 121/68 H 96 05/26/19 10:45 05/26/19 10:45 05/26/19 10:45 05/26/19 10:45 05/26/19 10:45 Oxygen Flow Rate (L/min) 4 Oxygen Delivery Method Nasal Cannula Weight: 149 lb 11.102 oz Body Mass Index (BMI) 27.8 Intake and Output for Last 24 Hours 05/24/19 05/25/19 05/26/19 23:59 23:59 23:59 Intake Total 1170 / 1170 710 / 1070 1010 / 1010 Output Total 600 / 600 50 / 50 300 / 300 Balance 570 / 570 660 / 1020 710 / 710 General: Alert, Oriented x 3, Cooperative, No Acute Distress Neck: No JVD Lungs: Clear to auscultation Cardiovascular: Irregular Rhythm - And fast, heart sounds distant, no gross murmur Abdomen: Bowel Sounds Present, Soft, Non Tender Neurological: No Focal Motor or Sensory Deficit Psych/Mental Status: Appropriate, Normal Affect 05/26/19 05:30: PT 28.1 H, INR 2.6 05/26/19 05:30: Sodium 137, Potassium 3.7, Chloride 105, Carbon Dioxide 25.0, Anion Gap 7, BUN 11, Creatinine 0.61, Est GFR (MDRD) Af Amer 124, Est GFR (MDRD) Non-Af 103, BUN/Creatinine Ratio 18.2, Glucose 95, Calcium 8.5 Rhythm: EKG: ECHO: Stress Test: Cardiac Cath: PCI: CT Surgery: Holter monitor: EPS: PPM: CXR: Chest CT Scan: Assessment/Plan #1 community-acquired pneumonia #2 recurrence of paroxysmal atrial fibrillation with fast ventricular rate, hemodynamically stable #3 hypertension and hyperlipidemia with intolerance to statin because of muscle weakness and pain Plan: IV Cardizem drip will be initiated. At the same time flecainide will be increased to 100 mg twice a day. EKG will be ordered tomorrow to assess QTC. Echocardiogram will be ordered. She will remain on Coumadin and atenolol Code Visit Inpatient E&M: 22293 Init Hosp L2
--- NOTE | 2019-05-26 13:48 | ECHOD_ITS ---
Reason For Study: Afib/Flutter Procedure This was a 2D Doppler, Color Flow transthoracic echocardiogram. Exam performed portable in patient room. Left Ventricle Normal LV size. Moderate concentric left ventricular hypertrophy. Left ventricular systolic function is normal. The estimated ejection fraction is 65 %. Unable to assess diastolic dysfunction due to arrhythmia. No regional wall motion abnormalities noted. Right Ventricle Normal RV size. Normal systolic function. Atria The left atrium is moderately enlarged. The right atrium is moderately enlarged. Mitral Valve There is moderate mitral annular calcification. Mild-Moderate (1-2+) eccentric mitral valve insufficiency. Tricuspid Valve Normal tricuspid valve. Mild (1+) tricuspid valve insufficiency. Pulmonary artery systolic pressure is 40 mmHg. Aortic Valve Trisinus/trileaflet aortic valve. Pulmonic Valve Normal pulmonic valve. Great Vessels Normal aortic root. The pulmonary artery is normal size. Normal inferior vena cava. Pericardium/Pleural No pericardial effusion. MMode/2D Measurements & Calculations LVIDd: 3.4 cm IVSd: 1.3 cm Ao root diam: 4.0 cm LVIDs: 2.1 cm LVPWd: 1.4 cm LA dimension: 4.2 cm RVDd: 3.7 cm FS: 36.5 % LAV(MOD-bp): 86.1 ml LA A4 area: 25.1 cm2 RA A4 area: 25.4 cm2 LAV(MOD-bp) Indexed: 52.0 ml/m2 LAV(MOD-sp2): 87.4 ml LAV(MOD-sp4): 81.7 ml Time Measurements MV dec time: 0.16 sec Doppler Measurements & Calculations MV E max andrew: 168.2 cm/sec MV V2 max: 158.9 cm/sec MV P1/2t max andrew: 158.9 cm/sec MV A max andrew: 39.0 cm/sec MV max P.1 mmHg MV P1/2t: 85.4 msec MV E/A: 4.3 MV V2 mean: 64.2 cm/sec MV dec slope: 544.7 cm/sec2 MV mean P.3 mmHg MVA(P1/2t): 2.6 cm2 MV V2 VTI: 37.2 cm Ao V2 max: 111.0 cm/sec LV V1 max: 83.8 cm/sec PA V2 max: 89.6 cm/sec Ao max P.9 mmHg LV V1 max P.8 mmHg TR max andrew: 298.2 cm/sec TR max P.6 mmHg Interpretation Summary Normal LV size. Moderate concentric left ventricular hypertrophy. Left ventricular systolic function is normal. The estimated ejection fraction is 65 %. Unable to assess diastolic dysfunction due to arrhythmia. The left atrium is moderately enlarged. The right atrium is moderately enlarged. Pulmonary artery systolic pressure is 40 mmHg. Ordering Physician: Oj Sanchez Referring Physician: Daphney Reynoso Performed By: Pablo Herzog RCS
[2019-05-26 14:23] LABS: Thyroid Stim Hormone (TSH) 1.48 uIU/mL (0.358-3.74)
[2019-05-26] MEDS: Digoxin 250 MCG/ML Ampul 500 MCG IV (17:59)
[2019-05-26] MEDS: Flecainide 100 MG Tablet PO (22:23)
[2019-05-26] MEDS: MELATONIN 3 MG TABLET PO (22:25)
[2019-05-27] VITALS (25 sets, daily range): BP systolic 104–130; BP diastolic 59–81; PULSE 0–114; RESP 17–29; TEMP 36.7–36.9; O2SAT 90–96
[2019-05-27 06:40] LABS: Absolute Lymphocyte Count 1.96 X10^3/uL (0.83-4.51); Absolute Neutrophil Count 8.2 X10^3/uL (2.0-7.7); Basophil# 0.04 X10^3/uL; Basophil% 0.3 % (0-1); Eosinophil# 0.09 X10^3/uL; Eosinophils% 0.8 % (0-5); Hematocrit 36.1 % (37-47); Hemoglobin 11.7 g/dL (12.0-15.0); Lymphocyte # 1.96 X10^3/ul (4.0); Mean Corp Hgb Conc 32.4 g/dL (32-36); Mean Corpuscular Hgb 27.3 pg (27.0-32.0); Mean Corpuscular Volume 84.3 fL (81-99); Mean Platelet Vol. 9.2 fl (6.2-12.0); Monocyte# 1.19 X10^3/uL; Monocyte% 10.3 % (0-10); NRBC Flagged by Analyzer 0 % (0-5); Neutrophil # 8.18 X10^3/uL (2.7-7.7); Platelet Count 305 K/mm3 (150-450); RBC Distribution Width SD 45.8 fl (35.1-43.9); Red Blood Count 4.28 M/mm3 (4.2-5.4); White Blood Count 11.5 K/mm3 (4.4-11.0)
[2019-05-27 06:48] LABS: Prothrombin Time (Protime)PT. 31.1 SECONDS (11.7-14.9)
[2019-05-27 06:58] LABS: Anion Gap 7 (5-15); BUN 11 mg/dL (7-18); BUN/Creat Ratio 19.7 RATIO (10-20); Chloride 99 mmol/L (98-107); Creatinine, Serum 0.56 mg/dL (0.55-1.02); EST Glomerular Filtration Rate 113 mL/min (>60); Est Glom Filt Rate - Afr Amer 137 mL/min (>60); Estimated Creatinine Clearance 37.81 ml/min; Glucose 97 mg/dL (74-106); Potassium 3.6 mmol/L (3.5-5.1); Sodium Level 135 mmol/L (136-145)
[2019-05-27] MEDS: Pantoprazole Sodium 40 MG Tablet PO (08:28)
[2019-05-27] MEDS: Doxycycline 100 MG CAPSULE PO (08:28)
[2019-05-27] MEDS: Flecainide 100 MG Tablet PO ×2 (08:29→21:19)
[2019-05-27] MEDS: Atenolol 25 MG Tablet PO ×2 (08:29→21:19)
--- NOTE | 2019-05-27 10:00 | EKG12_ITS ---
Test Reason : AM EKG Blood Pressure : / mmHG Vent. Rate : 078 BPM Atrial Rate : 288 BPM P-R Int : 000 ms QRS Dur : 080 ms QT Int : 392 ms P-R-T Axes : 000 043 041 degrees QTc Int : 446 ms Atrial fibrillation Low voltage QRS Abnormal ECG No previous ECGs available Confirmed by AKIN MARKS, DESTINEE ([id number]), medical editor GAUDENCIO DALAL ([id number]) on 05/31/2019 11:16:10 AM Referred By: Daphney Reynoso Confirmed By:AZAR GERARDO MD
[2019-05-27] MEDS: guaiFENesin 1,200 MG Tablet 1200 MG PO ×2 (11:10→21:18)
--- NOTE | 2019-05-27 11:43 | PN.CARD_ITS ---
Subjectve: Patient seen and evaluated. Appears to be doing better. Still in A. fib though she does not feel it. Objective: Vital Signs Temp Pulse Resp BP Pulse Ox 98.1 F 74 24 H 123/73 H 93 05/27/19 11:00 05/27/19 11:00 05/27/19 11:00 05/27/19 11:00 05/27/19 11:00 Oxygen Flow Rate (L/min) 3 Oxygen Delivery Method Nasal Cannula Weight: 147 lb 0.773 oz Body Mass Index (BMI) 27.8 Intake and Output for Last 24 Hours 05/25/19 05/26/19 05/27/19 23:59 23:59 23:59 Intake Total 710 / 1070 1381.17 / 2296.17 1550.00 / 1550.00 Output Total 50 / 50 1200 / 1600 600 / 600 Balance 660 / 1020 181.17 / 696.17 950.00 / 950.00 General: Awake, Alert, Oriented x 3 HEENT: PERRL, EOMI, Sclera Non Icteric Neck: Supple, Good ROM, No Lymph Node Enlargement Lungs: Clear to auscultation Cardiovascular: Irregular Rhythm, Normal S1, Normal S2, No Murmurs, No Rubs, No Gallops Vascular: No Carotid Bruits, Normal Femoral Pulses, Normal Radial Pulses, Normal Dorsalis Pedal Pulse, Normal Posterior Tibial Pulses Abdomen: Bowel Sounds Present, Soft, Non Tender, No HSM, No Organomegaly Extremities: No Cyanosis, No Clubbing, No edema Musculoskeletal: No Erythema Skin: No Rashes Lymphatic: No Lymph Node Enlargement Neurological: No Focal Motor or Sensory Deficit Psych/Mental Status: Appropriate 05/27/19 05:51: PT 31.1 H, INR 3.0 05/27/19 05:51: WBC 11.5 H, RBC 4.28, Hgb 11.7 L, Hct 36.1 L, MCV 84.3, MCH 27.3, MCHC 32.4, Plt Count 305, MPV 9.2, Immature Gran % (Auto) 0.600, Neut % (Auto) 71.0 H, Lymph % (Auto) 17.0 L, [place] % (Auto) 10.3 H, Eos % (Auto) 0.8, Baso % (Auto) 0.3, Absolute Neuts (auto) 8.2 H, Nucleated RBC % 0 05/27/19 05:51: Sodium 135 L, Potassium 3.6, Chloride 99, Carbon Dioxide 29.0, Anion Gap 7, BUN 11, Creatinine 0.56, Est GFR (MDRD) Af Amer 137, Est GFR (MDRD) Non-Af 113, BUN/Creatinine Ratio 19.7, Glucose 97, Calcium 8.0 L Rhythm: EKG: ECHO: Stress Test: Cardiac Cath: PCI: CT Surgery: Holter monitor: EPS: PPM: CXR: Chest CT Scan: Medical Necessity - Tobacco Use Smoking Status: Never smoker Tobacco Use: Non-smoker Assessment/Plan 1. Paroxysmal atrial fibrillation. * The above appears to be in the setting of a pneumonia. At this particular time her rate is controlled on the Cardizem. * Will attempt to switch to oral Cardizem * Will await echocardiographic evaluation * Continue antiarrhythmic for now * * Thank you for allowing me to participate in the care of your patient. Please don't hesitate to call if any issues arise
[2019-05-27] MEDS: dilTIAZem CD 120 MG Capsule PO (12:16)
--- NOTE | 2019-05-27 14:33 | CHAPLAIN ---
Type of Pastoral Visit _x__ Initial Visit ___ Follow-up Visit ___ On-call Visit ___ General Patient Visit ___ Spiritual Assessment ___ Family Conference ___ Bereavement ___ Rapid Response ___ Code Blue ___ Other (describe below) Pastoral Care Referral From _x__ Patient ___ Family ___ Nurse ___ Physician ___ Real Estate Appraiser ___ Manager Sports ___ Other (describe below) Sacrament/Intervention _x__ Active listening ___ Anointing ___ Scientologist ___ Bereavement ___ Communion _x__ Citlaly exploration ___ ___ Life review _x__ Prayer ___ Reconciliation ___ Sacrament of Sick _x__ Supportive presence ___ Wedding ___ Other (describe below) Pastoral Comments
--- NOTE | 2019-05-27 14:53 | CT_ITS ---
STUDY: CT CHEST WITHOUT CONTRAST REASON FOR EXAM: Female, 73 years old. RUL and amp; RML OPACITIES SEEN ON CXR -- HX-COPD,PULM HTN,HTN,MARFANS RADIATION DOSAGE (If Supplied By Facility): CTDIvol = ( 8.18 ) mGy, DLP = ( 247.32 ) mGycm TECHNIQUE: Transaxial imaging was performed without the administration of intravenous contrast material. Individualized dose optimization techniques were used for this CT. COMPARISON: None. FINDINGS: Bilateral small pleural effusion. Mild degree of consolidation in the lower lobes bilaterally. Multifocal patchy airspace process in the right upper lobe and right middle lobe consistent with pneumonia. 3.9 MM nodule in the left lower lobe on image 56. Mild cardiomegaly. Small pericardial effusion. Mildly prominent lymph nodes in the mediastinum. Unremarkable hilar regions. Normal unenhanced pulmonary arteries. Normal aorta arch and descending thoracic aorta. There are multi-level degenerative changes of the thoracic spine. Several nonspecific cysts in the visualized liver measuring up to 8.[address]/Chest without Contrast IMPRESSION: Pneumonia in the right upper lobe and in the right middle lobe. Mild degree of consolidation in the lower lobes bilaterally. Bilateral small pleural effusion. 3.9 MM nodule in the left lower lobe on image 56. Follow-up as per Fleischner Society recommendation. Small pericardial effusion. Mildly prominent lymph nodes in the mediastinum. Several nonspecific cysts in the visualized liver measuring up to 8.3 mm. Fleischner Society Recommendations for Follow-up and Management of Nodules Smaller than 8 mm Detected Incidentally at Nonscreening CT. Nodule size < or = 4 mm: Low-Risk Patient - No follow-up needed. High-Risk Patient - Follow-up CT at 12 months; if unchanged, no further follow-up. Nodule size > 4-6 mm: Low-Risk Patient - Follow-up CT at 12 months; if unchanged, no further follow-up. High-Risk Patient - Initial follow-up CT at 6-12 months then at 18-24 months if no change. Nodule size > 6-8 mm: Low-Risk Patient - Initial follow-up CT at 6-12 months then at 18-24 months if no change. High-Risk Patient - Initial follow-up CT at 3-6 months then at 9-12 and 24 months if no change. Nodule size > 8 mm: Low-Risk Patient - Follow-up CT at around 3,9 and 24 months. Dynamic contrast-enhanced CT, PET and/or biopsy. High-Risk Patient - Same as for low-risk patient. Low-Risk = Minimal or absent history of smoking and of other known risk factors. High-Risk = History of smoking or of other known risk factors. Electronically Signed: Tylor Rosenberg MD at 17:55 EST Tel [phone], Service support ,
--- NOTE | 2019-05-27 14:58 | PCM.PN.HOSP ---
Patient Problems: Active and Suspected Problems PNA (pneumonia) (Acute) Hyponatremia (Acute) Hypokalemia (Acute) Subtherapeutic international normalized ratio (INR) (Acute) Paroxysmal atrial fibrillation with RVR (Acute) Subjective: States breathing is better today, but remains on 3 L with SpO2 of only 94%. Lasix helped. Wanting to go home tomorrow. Vitals/I&O's: Vital Signs Temp Pulse Resp BP Pulse Ox 98.1 F 85 26 H 126/71 H 94 05/27/19 13:00 05/27/19 14:00 05/27/19 14:00 05/27/19 14:00 05/27/19 14:00 Oxygen Flow Rate (L/min) 3 Oxygen Delivery Method Nasal Cannula Weight: 66.7 kg Body Mass Index (BMI) 27.8 Intake and Output for Last 24 Hours 05/25/19 05/26/19 05/27/19 23:59 23:59 23:59 Intake Total 710 / 1070 1381.17 / 2296.17 1949.25 / 1949.25 Output Total 50 / 50 1200 / 1600 600 / 600 Balance 660 / 1020 181.17 / 696.17 1349.25 / 1349.25 General: Alert, Oriented x3, Cooperative, No apparent distress, Well developed, Well nourished, - - sitting up in chair HEENT: Atraumatic, PERRLA, EOMI, Normocephalic, EAC Clear Oral: Moist Mucosa, No Gingival or Mucosal Lesions/ Ulcerations, - - poor dentition, no thrush, mallampati 2 Neck: Supple, No JVD, Negative Carotid Bruits, Negative Hepatojugular Reflux, No Nodes, No Nuchal Rigidity, Trachea Midline, Thyroid Normal Size and Texture Lungs: Normal air movement, No rhonchi, No wheeze, No rales, Diminished - B bases Cardiovascular: Regular rate, Regular Rhythm, Normal S1, Normal S2, No murmurs, No Ectopic Activity Abdomen: Bowel Sounds Present, Soft, Non Tender, Non-Distended, No Hepato-splenomegaly, No hernias noted Extremities: No clubbing, No cyanosis, No edema, Peripheral Pulses Normal Skin: No rashes, No breakdown Musculoskeletal: No Tenderness to Palpation of Joints or Extremities, No Muscle Wasting Lymphatic: No Cervical, Supraclavicular, or Inguinal Adenopathy Neurological: Cranial nerves II-XII grossly intact, Deep Tendon Reflexes 2+/4 and Symmetrical, Neuro grossly intact, Motor Exam 5/5 strength throughout Psych/Mental Status: Appropriate, Flat Affect, - - A&O x 3 Microbiology Past 72 Hours 05/25/19 08:01 Sputum, Expectorated/Coughed Gram Stain - Final 05/25/19 08:01 Sputum, Expectorated/Coughed Respiratory Culture - Final Mixed normal respiratory ant. No Streptococcus pneumoniae, beta-hemolytic Streptococcus or Staphylococcus aureus isolated. 05/24/19 16:12 Blood Culture (Wb) - Anticubital Left Blood Culture - Preliminary No growth in 48 hours. 05/24/19 16:14 Blood Culture (Wb) - Right Hand Blood Culture - Preliminary No growth in 48 hours. 05/24/19 19:35 Mucosa - Nasopharyngeal Respiratory Panel (PCR) - Final 05/24/19 18:53 Urine, Clean Catch Legionella Antigen - Final 05/24/19 18:53 Urine, Clean Catch Streptococcus pneumoniae Antigen (M - Final 05/24/19 16:20 Mucosa - Nose Influenza Types A,B Direct FA (MORIAH) - Final Laboratory Results 05/27/19 05:51: PT 31.1 H, INR 3.0 05/27/19 05:51: WBC 11.5 H, RBC 4.28, Hgb 11.7 L, Hct 36.1 L, MCV 84.3, MCH 27.3, MCHC 32.4, RDW Std Deviation 45.8 H, RDW Coeff of Angelo 15.0 H, Plt Count 305, MPV 9.2, Immature Gran % (Auto) 0.600, Neut % (Auto) 71.0 H, Lymph % (Auto) 17.0 L, [place] % (Auto) 10.3 H, Eos % (Auto) 0.8, Baso % (Auto) 0.3, Absolute Neuts (auto) 8.2 H, Absolute Lymphs (auto) 1.96, Nucleated RBC % 0 05/27/19 05:51: Sodium 135 L, Potassium 3.6, Chloride 99, Carbon Dioxide 29.0, Anion Gap 7, BUN 11, Creatinine 0.56, Estim Creat Clear Calc 37.81, Est GFR (MDRD) Af Amer 137, Est GFR (MDRD) Non-Af 113, BUN/Creatinine Ratio 19.7, Glucose 97, Calcium 8.0 L Current Medications Acetaminophen (Tylenol) 650 mg PO Q6H PRN PRN PRN Reason: Pain Score 1-3/Temp > 100.7 F Albuterol Sulfate (Ventolin Aerosols) 2.5 mg INHALATION Q2H PRN PRN PRN Reason: SOB/Wheezing Atenolol (Tenormin (Beta Barber)) 25 mg PO BID [facility] Last Admin: 05/27/19 08:29 Dose: 25 mg Documented by: Bisacodyl (Dulcolax) 5 mg PO DAILY PRN PRN PRN Reason: Constipation Diltiazem HCl (Cardizem Cd) 120 mg PO DAILY [facility] Docusate Sodium (Colace) 100 mg PO BID [facility] Last Admin: 05/27/19 08:27 Dose: Not Given Documented by: Flecainide Acetate (Tambocor) 100 mg PO BID [facility] Last Admin: 05/27/19 08:29 Dose: 100 mg Documented by: Guaifenesin (Mucinex) 1,200 mg PO BID [facility] Last Admin: 05/27/19 11:10 Dose: 1,200 mg Documented by: Ampicillin Sodium/Sulbactam (Sodium 3 gm/ Sodium Chloride) 112 mls @ 150 mls/hr IV Q6 [facility] Melatonin (Melatonin) 3 mg PO QHS PRN PRN PRN Reason: INSOMNIA Last Admin: 05/26/19 22:25 Dose: 3 mg Documented by: Pantoprazole Sodium (Protonix) 40 mg PO DAILY [facility] Last Admin: 05/27/19 08:28 Dose: 40 mg Documented by: Potassium Chloride (K-Dur) 10 meq PO DAILY@0800 [facility] Last Admin: 05/27/19 08:24 Dose: 10 meq Documented by: Prochlorperazine Edisylate (Compazine Iv) 5 mg IV Q6H PRN PRN PRN Reason: NAUSEA/VOMITING Sodium Chloride () 10 - 40 ml IV UD PRN PRN Reason: SALINE FLUSH Last Admin: 05/26/19 10:44 Dose: 10 ml Documented by: Warfarin Sodium (Coumadin (Pbkc)) 4 mg PO DAILY@1700 [facility] Last Admin: 05/26/19 16:36 Dose: 4 mg Documented by: STROKE Vital Signs/Narrative: Vital Signs Temp Pulse Resp BP BP Pulse Ox 05/27/19 14:00 85 26 H 126/71 H 94 05/27/19 13:00 98.1 F 83 21 H 119/79 119/79 93 05/27/19 12:16 0 L 05/27/19 12:00 85 21 H 116/65 93 05/27/19 11:00 98.1 F 74 24 H 123/73 H 123/73 H 93 Medical Necessity - Tobacco Use Smoking Status: Never smoker Tobacco Use: Non-smoker Assessment/Plan All Active Problems PNA (pneumonia) (Acute) Hyponatremia (Acute) Hypokalemia (Acute) Subtherapeutic international normalized ratio (INR) (Acute) Paroxysmal atrial fibrillation with RVR (Acute) Systolic CHF (Resolved) Acute Respiratory Insufficiency 2/2 RML/RUL PNA -S. Pneumo and legionella neg -flu neg -sputum is c/w oral ant and blood cx neg -d/c doxy and CTX and start Unasyn for total of 7 days -check CT chest -SpO2 94 on N/C at 3 L -continue IS -continue acapella -restart home lasix PAH -RVSP of 44 2018/RVSP 40 today on echo -Lasix 40 mg IVP today and restart PO lasix tomorrow PAF -currently in a-fib (HR higher overnight) -continue BB/Flecanide/CCB as pt takes as outpt for now -cards saw and started cardizem ggt--> switched to PO today and HR now controlled -INR -2.3-->2.6-->3.0 -hold coumadin today -ECHO done and shows EF of 65%/Mod concentric LVH/no RWMA/JUAN -has appt to see Dr. Arriaga in 07/2019 (was [address] Dr[address] Ludwig) Mild Normocytic Anemia -no s/o blood loss -will trend -stable again today GERD -continue home meds HPL -on no home therapy -has Crestor allergy Marfan's Syndrome -no current issues DVT Prophylaxis -no need for anticoagulation as pt is fully anticoagulated with coumadin and INR is therapeutic today FULL CODE Code Visit Inpatient E&M: 44514 [facility] Hosp L3
--- NOTE | 2019-05-27 19:40 | NURSING ---
Pt. no longer in droplet isolation due to resp. panel, MRSA, BC all negative.
[2019-05-27] MEDS: Docusate Sodium 100 MG Capsule PO (21:18)
[2019-05-28] VITALS (13 sets, daily range): BP systolic 119–135; BP diastolic 75–95; PULSE 101–142; RESP 16–20; TEMP 36.4–38.2; O2SAT 94–98
[2019-05-28] MEDS: 0.9% Saline Lock 10 ML Syringe IV ×3 (00:38→11:17)
--- NOTE | 2019-05-28 08:15 | PN.CARD_ITS ---
Subjectve: Patient seen and evaluated. Sleeping appears to be stable. Objective: Vital Signs Temp Pulse Resp BP Pulse Ox 98.8 F 109 H 18 130/75 H 95 05/28/19 08:09 05/28/19 08:09 05/28/19 08:09 05/28/19 08:09 05/28/19 08:09 Oxygen Flow Rate (L/min) 3 Oxygen Delivery Method Nasal Cannula Weight: 146 lb 6.191 oz Body Mass Index (BMI) 27.8 Intake and Output for Last 24 Hours 05/26/19 05/27/19 05/28/19 23:59 23:59 23:59 Intake Total 1381.17 / 2296.17 2461.25 / 2461.25 544 / 544 Output Total 1200 / 1600 600 / 600 Balance 181.17 / 696.17 1861.25 / 1861.25 544 / 544 HEENT: PERRL, EOMI, Sclera Non Icteric Neck: Supple, Good ROM, No Lymph Node Enlargement Lungs: Diminished Rd Bases Cardiovascular: Irregular Rhythm, Normal S1, Normal S2, No Murmurs, No Rubs, No Gallops Vascular: No Carotid Bruits, Normal Femoral Pulses, Normal Radial Pulses, Normal Dorsalis Pedal Pulse, Normal Posterior Tibial Pulses Abdomen: Bowel Sounds Present, Soft, Non Tender, No HSM, No Organomegaly Extremities: No Cyanosis, No Clubbing, No edema Musculoskeletal: No Erythema Skin: No Rashes Lymphatic: No Lymph Node Enlargement Neurological: No Focal Motor or Sensory Deficit Psych/Mental Status: Appropriate Rhythm: EKG: ECHO: Stress Test: Cardiac Cath: PCI: CT Surgery: Holter monitor: EPS: PPM: CXR: Chest CT Scan: Medical Necessity - Tobacco Use Smoking Status: Never smoker Tobacco Use: Non-smoker Assessment/Plan 1. Paroxysmal atrial fibrillation. * The above appears to be in the setting of a pneumonia. At this particular time her rate is controlled on the Cardizem. * Patient has been converted to oral Cardizem as well as beta-ted * Continue anticoagulation maintaining INR of 2-3 * For now I will discontinue the antiarrhythmic. I am not sure about her coronary status. Hopefully after her pneumonia has resolved this can be restarted as an outpatient. * Her echocardiogram demonstrates preserved left ventricular systolic function. * Thank you for allowing me to participate in the care of your patient. Please don't hesitate to call if any issues arise
[2019-05-28] MEDS: dilTIAZem CD 120 MG Capsule PO ×2 (09:38→16:08)
[2019-05-28] MEDS: Docusate Sodium 100 MG Capsule PO (09:39)
[2019-05-28] MEDS: Pantoprazole Sodium 40 MG Tablet PO (09:39)
[2019-05-28] MEDS: guaiFENesin 1,200 MG Tablet 1200 MG PO ×2 (09:39→21:45)
[2019-05-28] MEDS: Atenolol 100 MG Tablet PO (09:41)
--- NOTE | 2019-05-28 12:17 | PCM.HP.ID ---
Problem List (1) PNA (pneumonia) Status: Acute Qualifiers: Pneumonia type: due to unspecified organism Laterality: right Reason for Consult: CAP Consulted by: Dr. Foster History of Present Illness: The patient is a 73 year old F with h/o COPD, presented 05/24 with several weeks of progressive cough, SOB, clear sputum. Developed chills, not feeling well. Came to ED, admitted on doxy and ceftriaxone. Yesterday, changed to unasyn. Feeling better overall, still on O2. No sputum, no fever, no n/v/d currently. Full ROS performed and neg except as noted above. - Medical History Past Medical History (Chronic Problems): Chronic Problems Pulmonary hypertension (Chronic) PA systolic is 44 in 2018 Chronic anticoagulation (Chronic) HTN (hypertension) (Chronic) GERD (gastroesophageal reflux disease) (Chronic) HLD (hyperlipidemia) (Chronic) COPD (chronic obstructive pulmonary disease) (Chronic) PAF (paroxysmal atrial fibrillation) (Chronic) with RVR Marfans syndrome (Chronic) Allergies/Adverse Reactions: Allergies Latex, Natural Rubber Allergy (Verified 05/24/19 15:54) Rash rosuvastatin calcium [From Crestor] Allergy (Verified 05/24/19 18:07) myalgias ibuprofen Adverse Reaction (Verified 05/24/19 15:54) Nausea Home Medications: Ambulatory Orders Medication Instructions Recorded Atenolol [Tenormin (beta ted)] 25 mg PO BID #60 tablet 01/05/14 Omeprazole [Prilosec] 40 mg PO DAILY 10/19/14 diltiazem HCl 120 mg 120 mg PO DAILY #90 cap 02/05/19 capsule,extended release 24 hr Doxycycline Monohydrate 100 mg PO BID 05/24/19 Flecainide Acetate 50 mg PO BID 05/24/19 Furosemide [Lasix] 20 mg PO DAILY 05/24/19 Potassium Chloride 10 meq PO DAILY 05/24/19 Warfarin Sodium 2 mg PO MOFR 05/24/19 Warfarin Sodium 4 mg PO SUTUWETHSA 05/24/19 - Social History Tobacco Use: non-smoker Vital Signs Temp Pulse Resp BP Pulse Ox 97.5 F L 101 H 16 127/76 H 95 05/28/19 09:36 05/28/19 11:04 05/28/19 09:36 05/28/19 09:36 05/28/19 09:36 Oxygen Flow Rate (L/min) 3 Oxygen Delivery Method Nasal Cannula Weight: 66.4 kg Body Mass Index (BMI) 27.8 Microbiology Past 72 Hours 05/25/19 08:01 Gram Stain - Final Sputum, Expectorated/Coughed Respiratory Culture - Final Mixed normal respiratory ant. No Streptococcus pneumoniae, beta-hemolytic Streptococcus or Staphylococcus aureus isolated. 05/24/19 16:12 Blood Culture - Preliminary Blood Culture (Wb) - Anticubital Left No growth in 48 hours. 05/24/19 16:14 Blood Culture - Preliminary Blood Culture (Wb) - Right Hand No growth in 48 hours. 05/24/19 19:35 Respiratory Panel (PCR) - Final Mucosa - Nasopharyngeal - Other Studies Radiology: [] reviewed Other Studies: [] Route of nutrition/ use of supplements: [] Nutritional Intake: [] IV Site: [] Calvo Catheter: [] - Physical Exam General: Alert, Oriented x3, Cooperative, No apparent distress HEENT: Atraumatic, PERRLA, EOMI Neck: Supple, No Nodes Lungs: Rales Cardiovascular: Regular rate, Regular Rhythm Abdomen: Soft, Non Tender, Non-Distended Extremities: No edema Skin: No rashes IV Site: Peripheral, without redness Musculoskeletal: No Tenderness to Palpation of Joints or Extremities Neurological: Cranial nerves II-XII grossly intact - Assessment/Plan Antibiotics: [] Assessment/Plan: [] Active and Suspected Problems PNA (pneumonia) (Acute) Hyponatremia (Acute) Hypokalemia (Acute) Subtherapeutic international normalized ratio (INR) (Acute) Paroxysmal atrial fibrillation with RVR (Acute) CAP. Overall feeling better, cxs and atypical work-up neg. On unasyn. Some of her ongoing hypoxia may be cardiac and fluid-related. May benefit from further diuresis. Will change to augmentin, stop date 05/30. Will follow, thank you, d/w Dr. Foster
[2019-05-28] MEDS: Acetaminophen 325 MG Tablet 650 MG PO (15:06)
[2019-05-28] MEDS: Amox/Clavulanate 875 MG Tablet PO (16:08)
--- NOTE | 2019-05-28 19:35 | PCM.PROGNOTE ---
Patient Problems: Active and Suspected Problems PNA (pneumonia) (Acute) Hyponatremia (Acute) Hypokalemia (Acute) Subtherapeutic international normalized ratio (INR) (Acute) Paroxysmal atrial fibrillation with RVR (Acute) Subjective: Patient was seen and examined today, her heart rate this afternoon elevated to the 130 to 140 rate-she remains in atrial fib. I talked briefly with cardiology this afternoon and her calcium channel barber was increased, later on this afternoon appears that her rate has slowed down to the low 100s. Patient is still requiring supplemental oxygen, I had infectious diseases see the patient and they felt she was currently stable on her antibiotic and changed her to oral Augmentin. - Physical Exam Vitals/I&O's: Vital Signs Temp Pulse Resp BP Pulse Ox 99.4 F H 103 H 16 124/77 H 94 05/28/19 16:04 05/28/19 16:04 05/28/19 16:04 05/28/19 16:04 05/28/19 16:04 Oxygen Flow Rate (L/min) 2 Oxygen Delivery Method Nasal Cannula Weight: 66.4 kg Body Mass Index (BMI) 27.8 Intake and Output for Last 24 Hours 05/26/19 05/27/19 05/28/19 23:59 23:59 23:59 Intake Total 1381.17 / 2296.17 2461.25 / 2461.25 1556 / 1556 Output Total 1200 / 1600 600 / 600 Balance 181.17 / 696.17 1861.25 / 1861.25 1556 / 1556 General: Alert, Oriented x3, Cooperative, No apparent distress, Well developed, Well nourished HEENT: Atraumatic, PERRLA, EOMI, Normocephalic Oral: Moist Mucosa Neck: Supple, No Nuchal Rigidity, Trachea Midline, Thyroid Normal Size and Texture Lungs: Clear to auscultation, No rhonchi, No wheeze, No rales, Diminished Cardiovascular: No murmurs, PMI Normal, Irregular Rate, No rub noted Abdomen: Bowel Sounds Present, Soft, Non Tender, Non-Distended Extremities: No clubbing, No cyanosis, No edema, Capillary Refill Less than 3 Seconds Skin: No rashes, No breakdown Musculoskeletal: No Tenderness to Palpation of Joints or Extremities Neurological: Cranial nerves II-XII grossly intact, Neuro grossly intact, Sensory exam intact to light touch and pain, Coordination normal Psych/Mental Status: Normal Affect, Appropriate, Alert and oriented to time, place, person, mood and affect Microbiology Past 72 Hours 05/25/19 08:01 Sputum, Expectorated/Coughed Gram Stain - Final 05/25/19 08:01 Sputum, Expectorated/Coughed Respiratory Culture - Final Mixed normal respiratory ant. No Streptococcus pneumoniae, beta-hemolytic Streptococcus or Staphylococcus aureus isolated. 05/24/19 16:12 Blood Culture (Wb) - Anticubital Left Blood Culture - Preliminary No growth in 48 hours. 05/24/19 16:14 Blood Culture (Wb) - Right Hand Blood Culture - Preliminary No growth in 48 hours. Current Medications Acetaminophen (Tylenol) 650 mg PO Q6H PRN PRN PRN Reason: Pain Score 1-3/Temp > 100.7 F Last Admin: 05/28/19 15:06 Dose: 650 mg Documented by: Albuterol Sulfate (Ventolin Aerosols) 2.5 mg INHALATION Q2H PRN PRN PRN Reason: SOB/Wheezing Amoxicillin/[facility]ulanate [facility] Last Admin: 05/28/19 16:08 Dose: 875 mg Documented by: Atenolol (Tenormin (Beta Barber)) 100 mg PO DAILY [facility] Last Admin: 05/28/19 09:41 Dose: 100 mg Documented by: Bisacodyl (Dulcolax) 5 mg PO DAILY PRN PRN PRN Reason: Constipation Diltiazem HCl (Cardizem Cd) 240 mg PO DAILY [facility] Docusate Sodium (Colace) 100 mg PO BID [facility] Last Admin: 05/28/19 09:39 Dose: 100 mg Documented by: Guaifenesin (Mucinex) 1,200 mg PO BID [facility] Last Admin: 05/28/19 09:39 Dose: 1,200 mg Documented by: Melatonin (Melatonin) 3 mg PO QHS PRN PRN PRN Reason: INSOMNIA Last Admin: 05/26/19 22:25 Dose: 3 mg Documented by: Pantoprazole Sodium (Protonix) 40 mg PO DAILY [facility] Last Admin: 05/28/19 09:39 Dose: 40 mg Documented by: Potassium Chloride (K-Dur) 10 meq PO DAILY@0800 [facility] Last Admin: 12/24/19 09:39 Dose: 10 meq Documented by: Sodium Chloride () 10 - 40 ml IV UD PRN PRN Reason: SALINE FLUSH Last Admin: 05/28/19 11:17 Dose: 10 ml Documented by: Medical Necessity - Tobacco Use Smoking Status: Never smoker Tobacco Use: Non-smoker Assessment/Plan All Active Problems PNA (pneumonia) (Acute) Hyponatremia (Acute) Hypokalemia (Acute) Subtherapeutic international normalized ratio (INR) (Acute) Paroxysmal atrial fibrillation with RVR (Acute) Systolic CHF (Resolved) #1 community-acquired pneumonia-etiology unclear at this point, continue present antibiotic coverage per ID #2 proximal atrial fibrillation with rapid ventricular response-patient is currently on rate limiting medications #3 mild pulmonary hypertension #4 hypoxia secondary to #1-continue to try to wean O2 #5 essential hypertension Code Visit Inpatient E&M: 84470 Subs Hosp L2
[2019-05-29] VITALS (9 sets, daily range): BP systolic 120–129; BP diastolic 63–78; PULSE 95–129; RESP 18–20; TEMP 36.6–37.3; O2SAT 91–104
--- NOTE | 2019-05-29 05:55 | RAD_ITS ---
STUDY: X-RAY CHEST REASON FOR EXAM: Female, 73 years old. PNEUMONIA TECHNIQUE: Single AP portable view of the chest. COMPARISON: 05/26/2019. FINDINGS: Ill-defined airspace opacity in the right middle lobe and right upper lobe are consistent with pneumonia are improved since the previous study. Small bilateral pleural effusions are decreased in size. Normal size heart. Normal mediastinum and claudia. Normal visualized pulmonary arteries. There is atherosclerotic calcification of the aortic arch with tortuosity. Normal visualized thoracic spine. There is degenerative osteoarthritis of the bilateral shoulders. There is no demonstrated abnormality of the visualized soft tissue structures of the upper abdomen. RAD/Chest 1 View IMPRESSION: Resolving right middle lobe and right upper lobe pneumonia. Electronically Signed: Daya Kim, at 8:28 EST Tel , Service support ,
[2019-05-29 06:51] LABS: International Normalized Ratio 1.8; Prothrombin Time (Protime)PT. 21.1 SECONDS (11.7-14.9)
--- NOTE | 2019-05-29 07:35 | PN.CARD_ITS ---
Subjectve: Patient feels better today. Objective: Vital Signs Temp Pulse Resp BP Pulse Ox 98.5 F 104 H 20 H 124/75 H 104 05/29/19 05:47 05/29/19 05:47 05/29/19 05:47 05/29/19 05:47 05/29/19 05:47 Oxygen Flow Rate (L/min) 1 Oxygen Delivery Method Nasal Cannula Weight: 146 lb 9.718 oz Body Mass Index (BMI) 27.8 Intake and Output for Last 24 Hours 05/27/19 05/28/19 05/29/19 23:59 23:59 23:59 Intake Total 2461.25 / 2461.25 1556 / 1556 200 / 200 Output Total 600 / 600 Balance 1861.25 / 1861.25 1556 / 1556 200 / 200 General: Awake, Alert, Oriented x 3 HEENT: Atraumatic Oral: Moist Mucosa Neck: Supple Lungs: Clear to auscultation Cardiovascular: Irregular Rhythm Abdomen: Soft Extremities: No edema Skin: No Rashes Psych/Mental Status: Appropriate 05/29/19 05:50: PT 21.1 H, INR 1.8 Rhythm: EKG: ECHO: Stress Test: Cardiac Cath: PCI: CT Surgery: Holter monitor: EPS: PPM: CXR: Chest CT Scan: Medical Necessity - Tobacco Use Smoking Status: Never smoker Tobacco Use: Non-smoker Assessment/Plan Paroxysmal atrial fibrillation. * The above appears to be in the setting of a pneumonia. * Patient has been converted to oral Cardizem as well as beta-ted * Continue anticoagulation maintaining INR of 2-3 * Oral Cardizem was increased yesterday. Her heart rate is in the 110s to 120s. After her a.m. dose of Cardizem at the increased dose hopefully her heart rate will be better controlled. If her heart rate is in the low 100s by this afternoon then she could potentially be discharged home. * Her echocardiogram demonstrates preserved left ventricular systolic function. * Thank you for allowing me to participate in the care of your patient. Please don't hesitate to call if any issues arise
[2019-05-29] MEDS: Amox/Clavulanate 875 MG Tablet PO (09:21)
[2019-05-29] MEDS: Docusate Sodium 100 MG Capsule PO (09:23)
[2019-05-29] MEDS: Pantoprazole Sodium 40 MG Tablet PO ×2 (09:23)
[2019-05-29] MEDS: guaiFENesin 1,200 MG Tablet 1200 MG PO (09:23)
[2019-05-29] MEDS: dilTIAZem CD 240 MG Capsule PO (09:23)
[2019-05-29] MEDS: Atenolol 100 MG Tablet PO (09:24)
--- NOTE | 2019-05-29 12:21 | DCINST_ITS ---
- Discharge Diagnoses Current Active Problems: Current Active and Chronic Problems PNA (pneumonia) (Acute) Hyponatremia (Acute) Hypokalemia (Acute) Pulmonary hypertension (Chronic) PA systolic is 44 in 2018 Chronic anticoagulation (Chronic) Subtherapeutic international normalized ratio (INR) (Acute) Paroxysmal atrial fibrillation with RVR (Acute) You will use the following diet at home:: No restrictions Your food should be the consistency of: Regular Your liquids should be the consistency of: Regular/Thin Discharge Activity: Return to Normal Activity Weight Bearing Status: Full weight bearing Allergies/Adverse Reactions: Allergies Latex, Natural Rubber Allergy (Verified 05/24/19 15:54) Rash rosuvastatin calcium [From Crestor] Allergy (Verified 05/24/19 18:07) myalgias ibuprofen Adverse Reaction (Verified 05/24/19 15:54) Nausea Medications to take at Discharge Omeprazole [Prilosec] 40 mg PO DAILY 10/19/14 Warfarin Sodium 2 mg PO MOFR 05/24/19 Warfarin Sodium 4 mg PO SUTUWETHSA 05/24/19 Acetaminophen [Tylenol Tablet] 650 mg PO Q6H PRN PRN tablet 05/29/19 Amox/Clavulanate Tablet [Augmentin Tablet] 875 mg PO BIDCM #10 tab 05/29/19 Atenolol [Tenormin (beta ted)] 100 mg PO DAILY #30 tab 05/29/19 Diltiazem CD [Cardizem CD] 240 mg PO DAILY #30 cap 05/29/19 The following prescriptions were given: Amox/Clavulanate Tablet [Augmentin Tablet] 875 mg PO BIDCM #10 tab Transmission Status: Pending to [facility]/pharmacy #[id number] Diltiazem CD [Cardizem CD] 240 mg PO DAILY #30 cap Transmission Status: Pending to [facility]/pharmacy #[id number] Atenolol [Tenormin (beta ted)] 100 mg PO DAILY #30 tab Transmission Status: Pending to [facility]/pharmacy #[id number] Primary Care Physician: Wes Magallon MD [Primary Care Provider] - Please follow up with your Primary Care Physician in: in 2 weeks Test Results: Test results from this visit will be discussed in further detail at your follow- up appointment, if applicable. Please Follow Up With: Bib Vincent MD When: in 3-4 weeks-call for appointment
--- NOTE | 2019-05-30 18:18 | PCM.DC.SUM ---
Discharge Date and Diagnosis Date of Admission: 05/24/19 Date of Discharge: 05/29/19 - Primary Discharge Diagnosis 1 community-acquired pneumonia-etiology unclear #2 Paroxysmal atrial fibrillation with rapid ventricular response #3 mild pulmonary hypertension #4 hypoxia secondary to #1 #5 essential hypertension - Secondary Discharge Diagnosis Chronic Problems Pulmonary hypertension (Chronic) PA systolic is 44 in 2018 Chronic anticoagulation (Chronic) HTN (hypertension) (Chronic) GERD (gastroesophageal reflux disease) (Chronic) HLD (hyperlipidemia) (Chronic) COPD (chronic obstructive pulmonary disease) (Chronic) PAF (paroxysmal atrial fibrillation) (Chronic) with RVR Marfans syndrome (Chronic) Hospital Course and Treatment Operations: None Procedures: 2-D Echocardiogram Summary of Care Provided: The patient is a 73 year old F who was seen in the emergency room at [facility] with a chief complaint of shortness of breath, she had been seen by her primary care physician the day before and placed on antibiotics with a diagnosis of pneumonia, work-up in the emergency room included a chest x-ray which showed bilateral lower lobe interstitial thickening and focal infiltrate in the right upper lobe. Patient was noted to be in atrial fibrillation with a heart rate of 126, CBC was unremarkable, chemistry profile was abnormal for sodium of 134 and a potassium of 3.3. Patient was given IV Rocephin and Zithromax and admitted to PCU, she was seen in consultation by cardiology and an echocardiogram was performed which showed normal EF. Patient's cardiac medications were adjusted, patient was also seen in consultation by infectious diseases. Patient was weaned from oxygen. On 05/29/2019, patient was seen and examined: On examination she appeared in good health and spirits. Vital signs as documented. Skin warm and dry and without overt rashes. Neck without JVD. Lungs clear. Heart exam notable for irregular rhythm. Abdomen unremarkable and without evidence of organomegaly, masses, or abdominal aortic enlargement. Extremities nonedematous. Neuro: Cranial nerves II through XII are grossly intact, no focal motor deficits were noted, sensation to light touch and pinprick is intact. Psych: Patient is alert and oriented x3, she does not appear anxious or depressed On 05/29/2019, patient was seen and examined and felt to be in stable condition for discharge home - Physical Exam Vitals/I&O's: Vital Signs Temp Pulse Resp BP Pulse Ox 97.8 F 102 H 20 H 129/67 H 96 12/25/19 12:00 05/29/19 12:00 05/29/19 12:00 05/29/19 12:00 05/29/19 12:01 Oxygen Flow Rate (L/min) 1 Oxygen Delivery Method Room Air Weight: 66.5 kg Body Mass Index (BMI) 27.8 Intake and Output for Last 24 Hours 05/28/19 05/29/19 05/30/19 23:59 23:59 23:59 Intake Total 1556 / 1556 440 / 440 Output Total 600 / 600 Balance 1556 / 1556 -160 / -160 Microbiology Past 72 Hours 05/24/19 16:12 Blood Culture (Wb) - Anticubital Left Blood Culture - Final No growth in 5 days. 05/24/19 16:14 Blood Culture (Wb) - Right Hand Blood Culture - Final No growth in 5 days. Discharge Activity: Return to Normal Activity Weight Bearing Status: Full weight bearing Home Medications: Medications to take at Discharge Omeprazole [Prilosec] 40 mg PO DAILY 10/19/14 Warfarin Sodium 2 mg PO MOFR 05/24/19 Warfarin Sodium 4 mg PO SUTUWETHSA 05/24/19 Acetaminophen [Tylenol Tablet] 650 mg PO Q6H PRN PRN tab 05/29/19 Amox/Clavulanate Tablet [Augmentin Tablet] 875 mg PO BIDCM #10 tab 05/29/19 Atenolol [Tenormin (beta ted)] 100 mg PO DAILY #30 tab 05/29/19 Diltiazem CD [Cardizem CD] 240 mg PO DAILY #30 cap 05/29/19 Following Prescrptions Were Given to Patient: Amox/Clavulanate Tablet [Augmentin Tablet] 875 mg PO BIDCM #10 tab Transmission Status: Received by [id number] Diltiazem CD [Cardizem CD] 240 mg PO DAILY #30 cap Transmission Status: Received by [id number] Atenolol [Tenormin (beta ted)] 100 mg PO DAILY #30 tab Transmission Status: Received by [id number] Primary Care Physician: Wes Magallon MD [Primary Care Provider] - Please follow up with your Primary Care Physician in: in 2 weeks Please Follow Up With: Bib Vincent MD When: in 3-4 weeks-call for appointment Disposition: Home Minutes spent on discharge:: 32 Patient Condition:: Stable Medical Necessity - Tobacco Use Smoking Status: Never smoker Tobacco Use: Non-smoker Meaningful Use Info Meaningful Use Diagnoses (Choose all that apply): None applicable Code Visit Inpatient E&M: 79401 Disch Hosp
--- NOTE | 2019-05-31 14:49 | CASEMGMT ---
RN CM Discharge F/U Phone Call LACE: 12 Strata: 4 Discharge date: 05/29/19 Call date: 05/31/19 Call time: 1450 Attempted to reach pt without success at this time, message left for pt to call this RN CM back if/when able. SStaten RN CM Admission dx: Afib RVR, Right sided pna
== END 2019-05-29 14:17 | disposition home or self-care (01) | DRG 194 ==
LOC: ED 16:25 → PCU 18:44
PROVIDERS: Internal Medicine; Internal Medicine Cardiovascular Disease; Admitting Provider Internal Medicine; Emergency Provider Emergency Medicine; Family Provider Family Medicine; PCP Family Medicine; Referring Provider Internal Medicine; Visit Provider Internal Medicine
DX: J18.9 Pneumonia, unspecified organism (principal); J44.0 Chronic obstructive pulmonary disease with (acute) lower respiratory infection; E87.1 Hypo-osmolality and hyponatremia; Q87.40 Marfan syndrome, unspecified; E87.6 Hypokalemia; I48.0 Paroxysmal atrial fibrillation; E78.5 Hyperlipidemia, unspecified; I27.20 Pulmonary hypertension, unspecified; K21.9 Gastro-esophageal reflux disease without esophagitis; I10 Essential (primary) hypertension; D64.9 Anemia, unspecified; R06.89 Other abnormalities of breathing; R09.02 Hypoxemia; Z79.01 Long term (current) use of anticoagulants
CPT/HCPCS: 36415; 71045; 71046; 71250; 80048; 80053; 83605; 83735; 84100; 84443; 84484; 85025; 85610; 87040; 87070; 87205; 87449; 87633; 87641; 87804; 93005; 93306; 94640; 94667; 94668; 99251; 99285; J7030; Q9957; A4216; G0463; J0295; J0696; J1940

== ENCOUNTER → 2019-06-03 15:05 | Outpatient (CLI) | payer MEDICARE, SELFPAY ==
[2019-05-24 18:38] VITALS: BMI 27.8
[2019-06-03 15:25] LABS: Prothrombin Time (Protime)PT. 22.3 SECONDS (11.7-14.9)
== END ==
PROVIDERS: Family Provider Family Medicine; PCP Family Medicine; Visit Provider Family Medicine
DX: I48.20 Chronic atrial fibrillation, unspecified (principal)
CPT/HCPCS: 85610

== ENCOUNTER 2019-06-04 13:30 | Emergency (ER) | payer MEDICARE, SELFPAY ==
[2019-05-24 18:38] VITALS: BMI 27.8
[2019-06-04 13:31] VITALS: BP 144/92; PULSE 119; RESP 16; TEMP 36.9; O2SAT 97; BMI 28.0
--- NOTE | 2019-06-04 13:35 | EKG12_ITS ---
Test Reason : PALPATIONS Blood Pressure : / mmHG Vent. Rate : 112 BPM Atrial Rate : 100 BPM P-R Int : 000 ms QRS Dur : 072 ms QT Int : 340 ms P-R-T Axes : 000 010 037 degrees QTc Int : 464 ms Atrial fibrillation with rapid ventricular response Abnormal ECG Confirmed by BELL MONK ([id number]), health editor BELINDA PRASAD ([id number]) on 06/06/2019 10:41:20 AM Referred By: GARCÍA Confirmed By:BELL MONK
[2019-06-04 14:16] LABS: Absolute Lymphocyte Count 2.31 X10^3/uL (0.83-4.51); Absolute Neutrophil Count 6.3 X10^3/uL (2.0-7.7); Basophil# 0.05 X10^3/uL; Basophil% 0.5 % (0-1); Eosinophil# 0.15 X10^3/uL; Eosinophils% 1.5 % (0-5); Hematocrit 39.2 % (37-47); Hemoglobin 12.5 g/dL (12.0-15.0); Lymphocyte # 2.31 X10^3/ul (4.0); Lymphocyte % 23.2 % (19-41); Mean Corp Hgb Conc 31.9 g/dL (32-36); Mean Corpuscular Hgb 27.5 pg (27.0-32.0); Mean Corpuscular Volume 86.3 fL (81-99); Mean Platelet Vol. 8.3 fl (6.2-12.0); Monocyte# 1.12 X10^3/uL; Monocyte% 11.2 % (0-10); NRBC Flagged by Analyzer 0 % (0-5); Neutrophil # 6.29 X10^3/uL (2.7-7.7); Neutrophil % 63.1 % (47-70); Platelet Count 514 K/mm3 (150-450); RBC Distribution Width CV 15.4 % (11.6-14.6); RBC Distribution Width SD 48.5 fl (35.1-43.9); Red Blood Count 4.54 M/mm3 (4.2-5.4)
[2019-06-04 14:25] LABS: International Normalized Ratio 1.6; Prothrombin Time (Protime)PT. 19.1 SECONDS (11.7-14.9)
--- NOTE | 2019-06-04 14:30 | RAD_ITS ---
STUDY: X-RAY CHEST REASON FOR EXAM: Female, 73 years old. HEART PALPITATIONS TECHNIQUE: Portable chest. COMPARISON: 05/29/2019, 05/26/2019.. FINDINGS: Trace right pleural effusion. Near complete resolution of previously identified right middle and upper lobe pneumonia. Minimal residual markings in the right lung base. Normal size heart. Normal mediastinum and claudia. Normal visualized pulmonary arteries. Normal visualized aortic arch and descending thoracic aorta. Normal visualized thoracic spine. Normal visualized ribs, clavicles, and shoulders. There is no demonstrated abnormality of the visualized soft tissue structures of the upper abdomen. RAD/Chest 1 View (Portable) IMPRESSION: Near complete resolution of previously reported pneumonia. Electronically Signed: Briana Campbell MD at 17:21 EST Tel , Service support ,
[2019-06-04] MEDS: dilTIAZem 25 MG/5 ML Vial 20 MG IV BOLUS (14:34)
[2019-06-04] MEDS: 0.9% Normal Saline 1,000 ML 150 ML IV (14:34)
[2019-06-04 14:35] VITALS: PULSE 123; RESP 22; O2SAT 94
[2019-06-04 14:35] LABS: Anion Gap 7 (5-15); BUN 8 mg/dL (7-18); BUN/Creat Ratio 12.2 RATIO (10-20); Calcium,Total 8.9 mg/dL (8.5-10.1); Chloride 106 mmol/L (98-107); Creatinine, Serum 0.66 mg/dL (0.55-1.02); EST Glomerular Filtration Rate 94 mL/min (>60); Est Glom Filt Rate - Afr Amer 113 mL/min (>60); Estimated Creatinine Clearance 37.81 ml/min; Glucose 77 mg/dL (74-106); Potassium 3.6 mmol/L (3.5-5.1); Sodium Level 141 mmol/L (136-145)
[2019-06-04 15:27] VITALS: BP 138/90; PULSE 102; RESP 20; O2SAT 96
--- NOTE | 2019-06-04 15:31 | ED.VISSUMM ---
- ER Visit Summary Date of Service: 06/04/19 Chief Complaint: [Tachycardia] History of Present Illness: The patient is a 73 F [to the emergency department from the office of her primary care physician. Patient apparently was following up with the nurse practitioner in the office from her prior admission to the hospital for pneumonia and A. fib. Patient was noted to be tachycardic so she was referred to the ER. Patient states that she did not take her medications this morning. She really did not realize that she was tachycardic and she does not realize she is having palpitations. She denies any shortness of breath out of the ordinary. Patient states she only has 1 more dose of antibiotic left. Patient has minimal cough. Patient is anticoagulated and on Coumadin. Patient with history of COPD, hypertension, GERD, hyponatremia, pulmonary hypertension, A. fib, and history of Marfan's.] Physical Examination: [HEENT-PERRLA, EOMI. Cranial nerves II through XII grossly intact. TMs clear. Mucous membranes moist. No adenopathy. Cardiovascular-irregularly irregular with no murmurs auscultated. Heart rate is tachycardic in the 1 teens. Lungs-clear to auscultation, chest wall stable without crepitus or subcu emphysema Abdomen-normoactive bowel sounds, soft, nontender, no rebound or rigidity, no peritoneal signs. Extremities-intact ?4, normal range of motion, normal pulses, atraumatic] Test Results: [EKG obtained showed a atrial fibrillation with a ventricular rate of 112 bpm. CBC with differential was unremarkable. Chemistries unremarkable. Troponin was less than 0.015. Chest x-ray showed increased markings in the right lower lobe which I suspect are sequela of recent pneumonia.] Was 1.6. Emergency Department Course and Treatment: [Patient was given Cardizem 20 mg IV bolus and that slowed her down into the 80s at rest. Patient was given Cardizem CD 240 mg which is her normal dose which she did not take today.] Treatment Plan: [Follow-up with geriatric physical therapist and primary care physician in 3 to 5 days.] Disposition: [Discharged home in stable condition. Patient advised to take her medications daily.] Impression: [A. fib RVR Warfarin coagulopathy] This note was generated with ihijiation software. It may contain incorrect words, spelling, and punctuation that were not noted in review of the chart prior to signing ED Disposition - Plan for ED Patient: Referrals: Wes Magallon MD [Primary Care Provider] -
--- NOTE | 2019-06-04 15:36 | ED.DEP ---
ED Disposition - Plan for ED Patient: Instructions: Atrial Fibrillation Referrals: Wes Magallon MD [Primary Care Provider] - 3-5 Days Junaid Arriaga MD [STAFF PHYSICIAN] - 3-5 Days
[2019-06-04 15:42] VITALS: BP 134/103; PULSE 122; RESP 23; O2SAT 93
[2019-06-04] MEDS: dilTIAZem CD 240 MG Capsule PO (15:42)
== END 2019-06-04 15:48 | disposition home or self-care (01) ==
LOC: ED 14:19
PROVIDERS: Emergency Provider Emergency Medicine; Family Provider Family Medicine; PCP Family Medicine
DX: I48.91 Unspecified atrial fibrillation (principal); D68.32 Hemorrhagic disorder due to extrinsic circulating anticoagulants; T45.515A Adverse effect of anticoagulants, initial encounter; Y92.9 Unspecified place or not applicable; J44.9 Chronic obstructive pulmonary disease, unspecified; I10 Essential (primary) hypertension; K21.9 Gastro-esophageal reflux disease without esophagitis; I27.20 Pulmonary hypertension, unspecified; Q87.40 Marfan syndrome, unspecified; Z87.01 Personal history of pneumonia (recurrent); Z79.899 Other long term (current) 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
CPT/HCPCS: 71045; 80048; 84484; 85025; 85610; 93005; 96361; 96374; 99285; J7030; A4216

== ENCOUNTER → 2019-06-17 14:47 | Outpatient (CLI) | payer MEDICARE, SELFPAY ==
[2019-06-04 13:31] VITALS: BMI 28.0
[2019-06-17 15:54] LABS: Anion Gap 5 (5-15); BUN 10 mg/dL (7-18); Calcium,Total 8.8 mg/dL (8.5-10.1); Chloride 104 mmol/L (98-107); Creatinine, Serum 0.77 mg/dL (0.55-1.02); EST Glomerular Filtration Rate 78 mL/min (>60); Est Glom Filt Rate - Afr Amer 95 mL/min (>60); Glucose 132 mg/dL (74-106); Potassium 3.8 mmol/L (3.5-5.1); Sodium Level 137 mmol/L (136-145)
== END ==
LOC: LAB 14:48
PROVIDERS: Family Provider Family Medicine; PCP Family Medicine; Referring Provider Specialist; Visit Provider Specialist
DX: I50.30 Unspecified diastolic (congestive) heart failure (principal); R06.02 Shortness of breath; R60.9 Edema, unspecified
CPT/HCPCS: 36415; 80048

== ENCOUNTER → 2019-11-20 14:03 | Outpatient (CLI) | payer MEDICARE, SELFPAY ==
[2019-06-19 13:08] VITALS: BMI 27.8
[2019-11-20 15:34] LABS: Creatinine, Urine (random) < 13.00 mg/dL (NO RANGE EST.); Protein, Urine (Random) < 6.0 mg/dL (<11.9)
== END ==
PROVIDERS: PCP Family Medicine; Referring Provider Specialist; Visit Provider Specialist
DX: Q87.40 Marfan syndrome, unspecified (principal); J90 Pleural effusion, not elsewhere classified; R06.02 Shortness of breath
CPT/HCPCS: 82570; 84156

== ENCOUNTER → 2019-11-22 15:43 | Outpatient (CLI) | payer MEDICARE, SELFPAY ==
[2019-11-22 15:07] VITALS: BMI 26.4
--- NOTE | 2019-11-22 16:10 | RAD_ITS ---
STUDY: X-RAY CHEST REASON FOR EXAM: Female, 74 years old. Pleural effusion follow up, shortness of breath TECHNIQUE: Frontal and lateral views COMPARISON: June 04, 2019. FINDINGS: The lungs are expanded. There is a mild to moderate right pleural effusion. Basilar infiltrate cannot be excluded. Normal size heart. Normal mediastinum and claudia. Normal visualized pulmonary arteries. Normal visualized aortic arch and descending thoracic aorta. Normal visualized thoracic spine. Normal visualized ribs, clavicles, and shoulders. There is no demonstrated abnormality of the visualized soft tissue structures of the upper abdomen. RAD/Chest PA and Lateral IMPRESSION: There is a mild to moderate right pleural effusion. Basilar infiltrate cannot be excluded. Electronically Signed: Luke Giraldo DO at 12:23 EDT Tel [phone], Service support ,
[2019-11-22 17:25] LABS: Anion Gap 8 (5-15); BUN 14 mg/dL (7-18); BUN/Creat Ratio 18.8 RATIO (10-20); Calcium,Total 8.4 mg/dL (8.5-10.1); Chloride 102 mmol/L (98-107); Creatinine, Serum 0.74 mg/dL (0.55-1.02); EST Glomerular Filtration Rate 81 mL/min (>60); Est Glom Filt Rate - Afr Amer 98 mL/min (>60); Glucose 96 mg/dL (74-106); Potassium 3.9 mmol/L (3.5-5.1); Sodium Level 137 mmol/L (136-145)
== END ==
LOC: LAB 15:45
PROVIDERS: PCP Family Medicine; Referring Provider Physician Assistant Medical; Visit Provider Physician Assistant Medical
DX: I48.0 Paroxysmal atrial fibrillation (principal); I10 Essential (primary) hypertension; E78.5 Hyperlipidemia, unspecified; J90 Pleural effusion, not elsewhere classified
CPT/HCPCS: 36415; 71046; 80048

== ENCOUNTER → 2020-01-15 07:28 | Outpatient (CLI) | payer MEDICARE, SELFPAY ==
[2020-01-15 05:45] VITALS: BMI 25.7
--- NOTE | 2020-01-15 07:35 | RAD_ITS ---
STUDY: X-RAY CHEST REASON FOR EXAM: Female, 74 years old. Right effusion TECHNIQUE: PA and lateral views of the chest. COMPARISON: Comparison is made with prior study dated 11/22/2019. FINDINGS: Hyperinflation. Small residual right pleural effusion with right basilar atelectasis. There has been improvement as compared to prior study. Normal size heart. Normal mediastinum and claudia. Normal visualized pulmonary arteries. There is atherosclerotic calcification of the aortic arch with tortuosity. There are diffuse degenerative changes of the visualized thoracic spine. Increased kyphosis. Normal visualized ribs, clavicles, and shoulders. There is no demonstrated abnormality of the visualized soft tissue structures of the upper abdomen. RAD/Chest PA and Lateral IMPRESSION: Interval decrease in size of the right pleural effusion with right basilar atelectasis. Residual changes persist. Electronically Signed: Shashi Jacobo, at 12:31 EDT , Service support ,
== END ==
LOC: RAD 07:30
PROVIDERS: PCP Family Medicine; Referring Provider Internal Medicine Critical Care Medicine; Visit Provider Internal Medicine Critical Care Medicine
DX: J90 Pleural effusion, not elsewhere classified (principal)
CPT/HCPCS: 71046

== ENCOUNTER → 2020-03-26 12:47 | Outpatient (CLI) | payer MEDICARE, SELFPAY ==
[2020-01-15 05:45] VITALS: BMI 25.7
--- NOTE | 2020-03-27 10:18 | PFT ---
INTRODUCTION: The patient is a 74-year-old female that presents for pulmonary function studies secondary to a diagnosis of pleural effusion. Respiratory therapy reports good patient effort. Bronchodilators were used during testing. INTERPRETATION: Forced expiration spirometry demonstrates the presence of a moderate large airways obstructive ventilatory defect. There was no significant response to aerosolized bronchodilators. Spirograms are of good quality and plateau gradually indicating slow emptying of the lungs. Body plethysmography was performed and reveals lung volumes to be within normal limits. Diffusing capacity by single breath CO is reduced at 62% of predicted. When compared to previous pulmonary function studies from January 2014, there has been a 17% reduction in FEV1. IMPRESSION: Irreversible moderate large airways obstructive ventilatory defect with preserved lung volumes and symmetric reduction in diffusing capacity. There has been worsening in the patient's pulmonary function study since January 2014, as noted above.
== END ==
LOC: PSN 12:47
PROVIDERS: PCP Family Medicine; Referring Provider Internal Medicine Critical Care Medicine; Visit Provider Internal Medicine Critical Care Medicine
DX: J90 Pleural effusion, not elsewhere classified (principal)
CPT/HCPCS: 94060; 94726; 94729

== ENCOUNTER → 2020-04-15 12:41 | Outpatient (CLI) | payer MEDICARE, SELFPAY ==
[2020-01-15 05:45] VITALS: BMI 25.7
[2020-04-15 12:59] VITALS: PULSE 90; PULSE 92; PULSE 93; PULSE 95; PULSE 99; O2SAT 91; O2SAT 92; O2SAT 93; O2SAT 94; O2SAT 95
--- NOTE | 2020-04-15 19:02 | WT_ITS ---
PSN 6 Minute Walk Test - 6 Minute Walk Test 6 Minute Walk Test: 6 Minute Walk Test PSN:6-Minute Walk Test Start: 04/15/20 12:59 Freq: Status: Active Protocol: RESP.6MINW Document 04/15/20 12:59 [facility] (Rec: 04/15/20 13:07 [facility] [id number]) 6 Minute Walk Test Date Performed 04/15/20 Time Performed 12:30 Height 5 ft Weight: 63.503 kg Weight in Pounds 140.[address]: Flaquito Mariee Assistive device used: None Pre-test Oxygen Delivery Method Room Air Pulse Ox (%) 94 Pulse Rate (60-100 beats/min) 93 Dyspnea Peggy Scale (0-10) 2 1st minute Oxygen Delivery Method Room Air Pulse Ox (%) 95 Pulse Rate (60-100 beats/min) 92 Dyspnea Peggy Scale (0-10) 2 Number of Rests Taken 0 2nd minute Oxygen Delivery Method Room Air Pulse Ox (%) 93 Pulse Rate (60-100 beats/min) 95 Dyspnea Peggy Scale (0-10) 2 Number of Rests Taken 0 3rd minute Oxygen Delivery Method Room Air Pulse Ox (%) 93 Pulse Rate (60-100 beats/min) 93 Dyspnea Peggy Scale (0-10) 3 Number of Rests Taken 1 Reported Symptoms Increased Work of Breathing 4th minute Oxygen Delivery Method Room Air Pulse Ox (%) 92 Pulse Rate (60-100 beats/min) 93 Dyspnea Peggy Scale (0-10) 3 Number of Rests Taken 0 Reported Symptoms Increased Work of Breathing 5th minute Oxygen Delivery Method Room Air Pulse Ox (%) 92 Pulse Rate (60-100 beats/min) 95 Dyspnea Peggy Scale (0-10) 3 Number of Rests Taken 0 Reported Symptoms Increased Work of Breathing 6th minute Oxygen Delivery Method Room Air Pulse Ox (%) 91 Pulse Rate (60-100 beats/min) 99 Dyspnea Peggy Scale (0-10) 4 Number of Rests Taken 1 Reported Symptoms Increased Work of Breathing Post-test Oxygen Delivery Method Room Air Pulse Ox (%) 95 Pulse Rate (60-100 beats/min) 90 Dyspnea Peggy Scale (0-10) 2 Full Laps Walked 10 Partial Lap, Number of Tiles Walked 32 Total Distance Walked (ft) 622 - Interpretation Interpretation: The patient was able to ambulate 622 feet over the course of 6 minutes on room air with the assistance of a cane and 2 breaks. The patient did have to take 2 breaks secondary to increased work of breathing and was noted to have significant desaturation as low as 91%. Patient did have a mild increase in heart rate to a peak of 99 bpm. These findings are consistent with a respiratory limitation exercise tolerance. - Recommendations Recommendations: No supplemental oxygen is indicated at this time. However, patient will need to be followed closely given level of desaturation.
== END ==
LOC: PSN 12:42
PROVIDERS: PCP Family Medicine; Referring Provider Internal Medicine Critical Care Medicine; Visit Provider Internal Medicine Critical Care Medicine
DX: J90 Pleural effusion, not elsewhere classified (principal)
CPT/HCPCS: 94618

== ENCOUNTER 2020-06-01 14:06 | Emergency (ER) | payer MEDICARE, SELFPAY ==
[2020-06-01 14:07] VITALS: BP 103/76; PULSE 120; RESP 18; TEMP 35.8; O2SAT 95; BMI 26.2; BMI 27.5
--- NOTE | 2020-06-01 14:20 | EKG12_ITS ---
Test Reason : CP Blood Pressure : / mmHG Vent. Rate : 098 BPM Atrial Rate : 076 BPM P-R Int : 000 ms QRS Dur : 076 ms QT Int : 334 ms P-R-T Axes : 000 050 044 degrees QTc Int : 426 ms Atrial fibrillation Abnormal ECG Confirmed by AKIN MARKS, DESTINEE ([id number]), skin fitter NIRAV VENTURA ([id number]) on 06/08/2020 9:12:58 AM Referred By: JESSICA Confirmed By:AZAR GERARDO MD
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
[2020-06-01 15:05] LABS: Absolute Lymphocyte Count 1.42 X10^3/uL (0.83-4.51); Absolute Neutrophil Count 7.1 X10^3/uL (2.0-7.7); Basophil# 0.05 X10^3/uL; Basophil% 0.5 % (0-1); Eosinophil# 0.08 X10^3/uL; Eosinophils% 0.8 % (0-5); Hematocrit 40.6 % (37-47); Hemoglobin 12.8 g/dL (12.0-15.0); Lymphocyte # 1.42 X10^3/ul (4.0); Lymphocyte % 14.3 % (19-41); Mean Corp Hgb Conc 31.5 g/dL (32-36); Mean Corpuscular Hgb 27.8 pg (27.0-32.0); Mean Corpuscular Volume 88.1 fL (81-99); Mean Platelet Vol. 8.9 fl (6.2-12.0); Monocyte# 1.18 X10^3/uL; Monocyte% 11.9 % (0-10); NRBC Flagged by Analyzer 0 % (0-5); Neutrophil # 7.13 X10^3/uL (2.7-7.7); Platelet Count 341 K/mm3 (150-450); RBC Distribution Width CV 13.9 % (11.6-14.6); RBC Distribution Width SD 44.4 fl (35.1-43.9); Red Blood Count 4.61 M/mm3 (4.2-5.4); White Blood Count 9.9 K/mm3 (4.4-11.0)
--- NOTE | 2020-06-01 15:15 | RAD_ITS ---
STUDY: X-RAY CHEST REASON FOR EXAM: Female, 74 years old. dyspnea, orthopnea, bilateral rales, pedal edema TECHNIQUE: Frontal and lateral views of the chest. COMPARISON: None. FINDINGS: There is partial atelectasis of the right middle lobe and right lower lobe. There is moderate right pleural effusion. Normal size heart. Normal mediastinum and claudia. Normal visualized pulmonary arteries. Normal visualized aortic arch and descending thoracic aorta. There is demineralization of the osseous structures. There is degenerative osteoarthritis of the bilateral shoulders. There is no demonstrated abnormality of the visualized soft tissue structures of the upper abdomen. RAD/Chest PA and Lateral IMPRESSION: There is partial atelectasis of the right middle lobe and right lower lobe. There is moderate right pleural effusion. Electronically Signed: Daya Kim, at 15:39 EST Tel , Service support ,
[2020-06-01 15:21] LABS: Prothrombin Time (Protime)PT. 21.8 SECONDS (11.7-14.9)
[2020-06-01 15:32] LABS: Anion Gap 6 (5-15); BUN 11 mg/dL (7-18); BUN/Creat Ratio 15.4 RATIO (10-20); Calcium,Total 8.8 mg/dL (8.5-10.1); Chloride 106 mmol/L (98-107); Creatinine, Serum 0.71 mg/dL (0.55-1.02); EST Glomerular Filtration Rate 85 mL/min (>60); Est Glom Filt Rate - Afr Amer 103 mL/min (>60); Estimated Creatinine Clearance 35.45 ml/min; Glucose 108 mg/dL (74-106); Potassium 3.7 mmol/L (3.5-5.1); Sodium Level 139 mmol/L (136-145)
[2020-06-01 16:12] LABS: BNP,B-Type NATRIURETIC PEPTIDE 417.7 pg/mL (0-100)
[2020-06-01 16:29] VITALS: BP 123/75; PULSE 105; RESP 18; O2SAT 94
== END 2020-06-01 16:30 | disposition home or self-care (01) ==
PROVIDERS: Emergency Provider Emergency Medicine; PCP Family Medicine
DX: I11.0 Hypertensive heart disease with heart failure (principal); I50.9 Heart failure, unspecified; J90 Pleural effusion, not elsewhere classified; J98.11 Atelectasis; I48.20 Chronic atrial fibrillation, unspecified; J44.9 Chronic obstructive pulmonary disease, unspecified; E78.5 Hyperlipidemia, unspecified; K21.9 Gastro-esophageal reflux disease without esophagitis; M06.9 Rheumatoid arthritis, unspecified; I27.20 Pulmonary hypertension, unspecified; Q87.40 Marfan syndrome, unspecified; Z79.01 Long term (current) use of anticoagulants; Z79.899 Other long term (current) 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
CPT/HCPCS: 71046; 80048; 83880; 84484; 85025; 85610; 93005; 99283; A4216

== ENCOUNTER → 2020-06-26 12:10 | Outpatient (CLI) | payer MEDICARE, SELFPAY ==
[2020-06-26 11:00] VITALS: BMI 28.1
--- NOTE | 2020-06-26 12:30 | RAD_ITS ---
STUDY: X-RAY CHEST REASON FOR EXAM: Female, 74 years old. Shortness of breath, Hx pleural effusion TECHNIQUE: PA and lateral views of the chest. COMPARISON: Comparison is made with prior study dated 06/01/2020. FINDINGS: Persistent small left pleural effusion with left basilar atelectasis and/or infiltration. This has improved as compared to prior study. Normal size heart. Normal mediastinum and claudia. Normal visualized pulmonary arteries. There is atherosclerotic calcification of the aortic arch with tortuosity. There are degenerative changes of the visualized thoracic spine. Increased kyphosis. There is degenerative osteoarthritis of the bilateral shoulders. There is no demonstrated abnormality of the visualized soft tissue structures of the upper abdomen. RAD/Chest PA and Lateral IMPRESSION: Pleural parenchymal changes at the right lung base. These have improved as compared to prior study. Electronically Signed: Shashi Jacobo MD at 15:07 EST , Service support ,
[2020-06-26 12:55] LABS: BNP,B-Type NATRIURETIC PEPTIDE 303.4 pg/mL (0-100)
[2020-06-26 13:48] LABS: Anion Gap 7 (5-15); BUN 13 mg/dL (7-18); Chloride 103 mmol/L (98-107); Creatinine, Serum 0.76 mg/dL (0.55-1.02); EST Glomerular Filtration Rate 79 mL/min (>60); Est Glom Filt Rate - Afr Amer 95 mL/min (>60); Glucose 99 mg/dL (74-106); Potassium 3.8 mmol/L (3.5-5.1); Sodium Level 138 mmol/L (136-145)
== END ==
LOC: LAB 12:13
PROVIDERS: PCP Family Medicine; Referring Provider Nurse Practitioner Acute Care; Visit Provider Nurse Practitioner Acute Care
DX: J90 Pleural effusion, not elsewhere classified (principal); R06.02 Shortness of breath
CPT/HCPCS: 36415; 71046; 80048; 83880

== ENCOUNTER 2021-04-26 16:08 | Inpatient (IN) | payer MEDICARE, SELFPAY ==
[2021-04-26] VITALS (8 sets, daily range): BP systolic 111–136; BP diastolic 78–104; PULSE 84–120; RESP 16–27; TEMP 36.4–37; O2SAT 92–98; BMI 26.1; BMI 26.2
--- NOTE | 2021-04-26 16:47 | ED.VIS.DYS ---
HPI History of Present Illness Chief Complaint: Shortness of Breath Informant: patient Onset/Context/Timing Onset: Days Context: gradual Timing: Continuous Quality: Positive for Dyspnea on exertion Worsened by: Exertion Relieved by: Albuterol Associated Symptoms cough, rhinorrhea and clear sputum; Negative for ear pain, fever, sore throat, chills, sweats, white sputum, yellow sputum or green sputum Chest Pain: Positive for Intermittent and - (Mild heaviness that lasts just a couple seconds) Narrative Narrative: Patient presents with shortness of breath that has been getting worse over the past few days. Patient states she was told she had pleural effusions that were going to need to be drained. Patient states she is scheduled to have these drained in June by Dr Edwards. Patient states her breathing is gotten worse over the past few days. Patient admits to some heaviness in her chest at times. Patient states that this comes on and lasts a few seconds and then goes away. Patient states her breathing is worse with exertion. Patient states it is better with albuterol and rest. Patient admits to a cough with some clear sputum. Patient denies any fevers or chills. Patient denies any exposures to COVID-19. Patient has not been vaccinated against COVID-19 however. [facility] Medical History (Updated 04/26/21 @ 20:42 by Estefany Horan) Chronic anticoagulation COPD (chronic obstructive pulmonary disease) COPD (chronic obstructive pulmonary disease) GERD (gastroesophageal reflux disease) HLD (hyperlipidemia) HTN (hypertension) Hypokalemia Hyponatremia Marfans syndrome PAF (paroxysmal atrial fibrillation) Paroxysmal atrial fibrillation with RVR PNA (pneumonia) Pulmonary hypertension Rheumatoid arthritis Rheumatoid arthritis Subtherapeutic international normalized ratio (INR) Home Medications omeprazole 40 mg PO DAILY 10/19/14 [History Last Taken 04/26/21] calcium carbonate 600 mg calcium (1,500 mg) tablet 600 mg PO DAILY 06/19/19 [History Last Taken 04/26/21] multivitamin 1 tab PO DAILY 06/19/19 [History Last Taken 04/26/21] furosemide 40 mg tablet 40 mg PO BID tab 11/22/19 [History Last Taken 04/26/21] Handicap placard #1 ea 01/07/20 [Rx Last Taken Unknown] warfarin 4 mg tablet 2 mg PO SUTUTHSA 01/07/20 [History Last Taken 04/25/21] warfarin 4 mg tablet 4 mg PO MOWEFR 01/07/20 [History Last Taken 04/23/21] albuterol sulfate 90 mcg/actuation aerosol inhaler 2 puff INHALATION Q4H PRN g 01/09/20 [History Last Taken 04/26/21] atenolol 100 mg PO DAILY 04/26/21 [History Last Taken 04/26/21] diltiazem HCl 240 mg PO DAILY 04/26/21 [History Last Taken 04/26/21] potassium chloride 20 meq PO BID 04/26/21 [History Last Taken 04/26/21] Allergy/AdvReac Type Severity Reaction Status Date / Time pneumococcal vaccine Allergy Severe Rash Verified 04/26/21 16:11 [From Prevnar 13 (PF)] Latex, Natural Rubber Allergy Rash Verified 04/26/21 16:11 rosuvastatin calcium Allergy myalgias Verified 04/26/21 16:11 [From Crestor] ibuprofen AdvReac Nausea Verified 04/26/21 16:11 Family History Mother Diabetes Colon cancer Marfan syndrome Sister Diabetes Hypertension Brother Marfan syndrome COPD (chronic obstructive pulmonary disease) Brother Marfan syndrome Surgical History History of eye surgery History of hysterectomy Social History Smoking Status: Never smoker alcohol intake: never substance use type: does not use caffeine: Yes Type: coffee Number of servings: 4 ROS ROS ED Constitutional Constitutional ED: Denies chills or fever(s) Eyes Eyes: Denies blurry vision or change in vision ENT ENT ED: Denies rhinorrhea or sore throat Cardiovascular Cardiovascular: Reports chest pain; Denies palpitations Respiratory/Chest Respiratory/Chest: Reports cough and dyspnea Gastrointestinal Gastrointestinal: Denies nausea or vomiting Genitourinary Genitourinary ED: Denies dysuria or hematuria Musculoskeletal Musculoskeletal: Reports back pain; Denies neck pain Integumentary Denies abscess or rash Neurologic Neurologic: Denies headache(s) or weakness Allergic/Immunologic Allergic/Immunologic ED: Denies mouth swelling or urticaria EXAM Physical Exam Const Vital Signs: 04/26/21 16:09 04/26/21 16:15 04/26/21 16:41 Temperature 97.6 F L Temperature Source Temporal Pulse Rate 84 95 Respiratory Rate 16 16 Respiratory Effort Normal Respiratory Depth Normal Respiratory Pattern Normal Blood Pressure 111/78 132/96 H Blood Pressure Mean 89 108 Pulse Ox 92 95 Oxygen Delivery Method Room Air Room Air Room Air Oxygen Flow Rate (L/min) 04/26/21 17:21 04/26/21 18:36 04/26/21 19:02 Temperature 98.3 F Temperature Source Temporal Pulse Rate 114 H 114 H 112 H Respiratory Rate 19 H 23 H 27 H Respiratory Effort Respiratory Depth Respiratory Pattern Blood Pressure 126/98 H 121/90 H 117/87 H Blood Pressure Mean 107 100 97 Pulse Ox 93 98 97 Oxygen Delivery Method Room Air Nasal Cannula Nasal Cannula Oxygen Flow Rate (L/min) 2 2 Positive well nourished and well developed General Appearance ED: well developed HEENT Reports moist mucous membranes Neck supple and no JVD Resp normal respiratory effort Auscultation: diminished lung sounds Cardio regular rate Rhythm: abnormal rhythm irregularly irregular GI non-tender Palpation: soft Neuro oriented x3, CN's II-XII intact bilaterally and no sensory deficits noted Sensorium / Orientation: alert Motor Exam: strength 5/5 throughout Psych mental status grossly normal MDM MDM MDM Narrative Medical decision making narrative: Portable chest x-ray was obtained. There is 1 view. On my interpretation, there is a large right pleural effusion. There is also some congestive heart failure. Radiologist also interpreted the x-ray and agrees. CBC was within normal limits. Comprehensive metabolic profile was within normal limits. Lactate was normal. PT was INR was obtained. INR was 2.0. Patient was given a dose of oral vitamin K prior to admission. Case was discussed with the hospitalist. He will admit the patient to his service. Patient understood and was agreeable with the plan. All questions were answered. Lab Data Attestation: I reviewed the patient's lab results. Labs: Laboratory Results - last 24 hr 04/26/21 04/26/21 04/26/21 16:20 16:20 16:40 WBC RBC Hgb Hct MCV MCH MCHC RDW Std Deviation RDW Coeff of Angelo Plt Count MPV Immature Gran % (Auto) Neut % (Auto) Lymph % (Auto) [place] % (Auto) Eos % (Auto) Baso % (Auto) Absolute Neuts (auto) Absolute Lymphs (auto) Nucleated RBC % PT 21.8 H INR 2.0 Sodium 135 L Potassium 3.8 Chloride 99 Carbon Dioxide 29.0 Anion Gap 7 BUN 14 Creatinine 0.77 Estim Creat Clear Calc 34.91 Est GFR (MDRD) Af Amer 93 Est GFR (MDRD) Non-Af 77 BUN/Creatinine Ratio 18.1 Glucose 98 Lactic Acid 1.4 Calcium 8.9 Total Bilirubin 0.90 AST 22 ALT 21 Alkaline Phosphatase 121 H Total Protein 8.0 Albumin 3.5 Globulin 4.5 H Albumin/Globulin Ratio 0.8 L 04/26/21 16:41 WBC 10.6 RBC 4.93 Hgb 13.9 Hct 42.5 MCV 86.2 MCH 28.2 MCHC 32.7 RDW Std Deviation 46.7 H RDW Coeff of Angelo 14.6 Plt Count 363 MPV 8.9 Immature Gran % (Auto) 0.300 Neut % (Auto) 70.5 H Lymph % (Auto) 15.9 L [place] % (Auto) 11.9 H Eos % (Auto) 0.8 Baso % (Auto) 0.6 Absolute Neuts (auto) 7.5 Absolute Lymphs (auto) 1.69 Nucleated RBC % 0 PT INR Sodium Potassium Chloride Carbon Dioxide Anion Gap BUN Creatinine Estim Creat Clear Calc Est GFR (MDRD) Af Amer Est GFR (MDRD) Non-Af BUN/Creatinine Ratio Glucose Lactic Acid Calcium Total Bilirubin AST ALT Alkaline Phosphatase Total Protein Albumin Globulin Albumin/Globulin Ratio Radiography Chest X-Ray - ED: 1 View, Read by ED Physician, Read by Radiologist and Right Effusion Diagnostic Testing: Clinical Impression(s) from Imaging Studies Chest X-Ray 04/26/21 17:05 IMPRESSION: 1. Large right pleural effusion. CHF with interstitial edema. Electronically Signed: Reg Fontanez MD (Brooks) at 17:23 EST , Service support , Treatment and Re-Evaluation Vital Sign Attestation:: Vital signs were reviewed prior to admission. They are stable. Discharge Plan Disposition Disposition: Acute Care Hospital [facility] Discharge Date/Time: 04/26/21 20:38
[2021-04-26 16:56] LABS: Absolute Lymphocyte Count 1.69 X10^3/uL (0.83-4.51); Absolute Neutrophil Count 7.5 X10^3/uL (2.0-7.7); Basophil# 0.06 X10^3/uL; Basophil% 0.6 % (0-1); Eosinophil# 0.08 X10^3/uL; Eosinophils% 0.8 % (0-5); Hematocrit 42.5 % (37-47); Hemoglobin 13.9 g/dL (12.0-15.0); Lymphocyte # 1.69 X10^3/ul (0.83-4.51); Lymphocyte % 15.9 % (19-41); Mean Corp Hgb Conc 32.7 g/dL (32-36); Mean Corpuscular Hgb 28.2 pg (27.0-32.0); Mean Corpuscular Volume 86.2 fL (81-99); Mean Platelet Vol. 8.9 fl (6.2-12.0); Monocyte# 1.27 X10^3/uL; Monocyte% 11.9 % (0-10); NRBC Flagged by Analyzer 0 % (0-5); Neutrophil # 7.51 X10^3/uL (2.7-7.7); Neutrophil % 70.5 % (47-70); Platelet Count 363 K/mm3 (150-450); RBC Distribution Width CV 14.6 % (11.6-14.6); RBC Distribution Width SD 46.7 fl (35.1-43.9); Red Blood Count 4.93 M/mm3 (4.2-5.4); White Blood Count 10.6 K/mm3 (4.4-11.0)
--- NOTE | 2021-04-26 17:05 | RAD_ITS ---
STUDY: X-RAY CHEST REASON FOR EXAM: Female, 75 years old. cough TECHNIQUE: AP COMPARISON: None. FINDINGS: Large right pleural effusion. Central pulmonary vascular congestion and interstitial/groundglass opacities. There is mild cardiac enlargement. Mitral valve calcifications. There is prominence of the pulmonary hilar arteries and peripheral pulmonary arteries, consistent with congestive heart failure (CHF). There is atherosclerotic calcification of the aortic arch with tortuosity. There is demineralization of the osseous structures. Normal visualized ribs, clavicles, and shoulders. There is no demonstrated abnormality of the visualized soft tissue structures of the upper abdomen. RAD/Chest 1 View (Portable) IMPRESSION: 1. Large right pleural effusion. CHF with interstitial edema. Electronically Signed: Reg Fontanez MD (Brooks) at 17:23 EST , Service support ,
[2021-04-26] MEDS: Acetaminophen 500 MG Tablet 1000 MG PO (17:23)
[2021-04-26 17:26] LABS: ALB/GLOB Ratio 0.8 RATIO (0.9-2.4); AST(SGOT) 22 U/L (15-37); Alanine Aminotransfer ALT/SGPT 21 U/L (13-56); Albumin, Serum 3.5 g/dL (3.2-5.0); Alkaline Phosphatase 121 U/L (45-117); Anion Gap 7 (5-15); BUN 14 mg/dL (7-18); BUN/Creat Ratio 18.1 RATIO (10-20); Calcium,Total 8.9 mg/dL (8.5-10.1); Chloride 99 mmol/L (98-107); Creatinine, Serum 0.77 mg/dL (0.55-1.02); EST Glomerular Filtration Rate 77 mL/min (>60); Est Glom Filt Rate - Afr Amer 93 mL/min (>60); Estimated Creatinine Clearance 34.91 ml/min; Globulin 4.5 g/dL (2.2-4.2); Glucose 98 mg/dL (74-106); Potassium 3.8 mmol/L (3.5-5.1); Sodium Level 135 mmol/L (136-145)
[2021-04-26 17:38] LABS: Lactic Acid 1.4 mmol/L (0.4-1.9)
--- NOTE | 2021-04-26 19:42 | ED.RN ---
sepsis screen canceled per ed dr order. princess matthews. rn [id number]
--- NOTE | 2021-04-26 19:50 | PCM.HP.STD ---
HPI - General HPI Narrative NIMISHA CEJA, is a 75 F who presents to the emergency room with shortness of breath. 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 In the emergency room a large right-sided pleural effusion was noted along with congestive heart failure. Patient denies any chest pain at this time but does have shortness of breath with exertion. The patient denies any nausea, vomiting or diarrhea. She is chronically anticoagulated on Coumadin and an INR was pending at the time of my evaluation. Coumadin will be held and may need to be reversed for a thoracentesis to proceed tomorrow. [facility], [facility] Medical History Chronic anticoagulation COPD (chronic obstructive pulmonary disease) GERD (gastroesophageal reflux disease) HLD (hyperlipidemia) HTN (hypertension) Hypokalemia Hyponatremia Marfans syndrome PAF (paroxysmal atrial fibrillation) Paroxysmal atrial fibrillation with RVR PNA (pneumonia) Pulmonary hypertension Rheumatoid arthritis Subtherapeutic international normalized ratio (INR) Home Medications omeprazole 40 mg PO DAILY 10/19/14 [History Last Taken 05/23/19] calcium carbonate 600 mg calcium (1,500 mg) tablet 600 mg PO DAILY 06/19/19 [History Last Taken Unknown] multivitamin 1 tab PO DAILY 06/19/19 [History Last Taken Unknown] furosemide 40 mg tablet 40 mg PO BID tab 11/22/19 [History Last Taken Unknown] Handicap placard #1 ea 01/07/20 [Rx Last Taken Unknown] potassium chloride 10 mEq capsule,extended release 20 meq PO BID cap 01/07/20 [History Last Taken Unknown] warfarin 4 mg tablet 2 mg PO MOFR 01/07/20 [History Last Taken Unknown] warfarin 4 mg tablet 4 mg PO SUTUWETHSA 01/07/20 [History Last Taken Unknown] albuterol sulfate 90 mcg/actuation aerosol inhaler 2 puff INHALATION Q4H PRN g 01/09/20 [History Last Taken Unknown] atenolol 100 mg tablet See Rx Instructions .ROUTE .COMPLEX #90 tab 01/22/21 [Rx Last Taken Unknown] diltiazem HCl 240 mg capsule,extended release 24 hr See Rx Instructions .ROUTE .COMPLEX #90 cap 01/22/21 [Rx Last Taken Unknown] Allergy/AdvReac Type Severity Reaction Status Date / Time pneumococcal vaccine Allergy Severe Rash Verified 04/26/21 16:11 [From Prevnar 13 (PF)] Latex, Natural Rubber Allergy Rash Verified 04/26/21 16:11 rosuvastatin calcium Allergy myalgias Verified 04/26/21 16:11 [From Crestor] ibuprofen AdvReac Nausea Verified 04/26/21 16:11 Family History Mother Diabetes Colon cancer Marfan syndrome Sister Diabetes Hypertension Brother Marfan syndrome COPD (chronic obstructive pulmonary disease) Brother Marfan syndrome Surgical History History of eye surgery History of hysterectomy Social History Smoking Status: Never smoker alcohol intake: never substance use type: does not use caffeine: Yes Type: coffee Number of servings: 4 ROS Constitutional Constitutional: Denies chills, fatigue or fever(s) ENT HEENT: Denies abnormal hearing Cardiovascular Cardiovascular: Denies chest pain Respiratory/Chest Respiratory/Chest: Reports shortness of breath with exertion Gastrointestinal Gastrointestinal: Denies abdominal pain Genitourinary Genitourinary: Denies dysuria Musculoskeletal Musculoskeletal: Denies back pain Integumentary Integumentary: Denies dry skin Neurologic Neurologic: Denies abnormal speech Psychiatric Psychiatric: Denies anxiety Vital Signs Vital Signs Vital Signs: 04/26/21 16:09 04/26/21 16:15 04/26/21 16:41 Temperature 97.6 F L Temperature Source Temporal Pulse Rate 84 95 Respiratory Rate 16 16 Respiratory Effort Normal Respiratory Depth Normal Respiratory Pattern Normal Blood Pressure 111/78 132/96 H Blood Pressure Mean 89 108 Pulse Ox 92 95 Oxygen Delivery Method Room Air Room Air Room Air Oxygen Flow Rate (L/min) 04/26/21 17:21 04/26/21 18:36 04/26/21 19:02 Temperature 98.3 F Temperature Source Temporal Pulse Rate 114 H 114 H 112 H Respiratory Rate 19 H 23 H 27 H Respiratory Effort Respiratory Depth Respiratory Pattern Blood Pressure 126/98 H 121/90 H 117/87 H Blood Pressure Mean 107 100 97 Pulse Ox 93 98 97 Oxygen Delivery Method Room Air Nasal Cannula Nasal Cannula Oxygen Flow Rate (L/min) 2 2 Weight Weight: 133 lb 13.129 oz Body Mass Index (BMI) 26.1 Physical Exam Const oriented x3 and no apparent distress General Appearance: cooperative HEENT normocephalic and head/scalp atraumatic Eyes PERRL Neck supple Lymph Lymphatic: no lymphadenopathy noted Resp Auscultation: diminished lung sounds right Cardio regular rhythm, S1 normal heart sound and S2 normal heart sound Rate: tachycardic GI normal to inspection, nondistended, normoactive bowel sounds Extremity no clubbing, cyanosis or edema Skin General Skin Exam: turgor normal Neuro CN's II-XII intact bilaterally Psych affect normal Results Lab / Micro Data Result Diagrams: 04/26/21 16:41 04/26/21 16:40 Labs: Laboratory Results - last 24 hr 04/26/21 16:20: Lactic Acid 1.4 04/26/21 16:40: Sodium 135 L, Potassium 3.8, Chloride 99, Carbon Dioxide 29.0, Anion Gap 7, BUN 14, Creatinine 0.77, Estim Creat Clear Calc 34.91, Est GFR (MDRD) Af Amer 93, Est GFR (MDRD) Non-Af 77, BUN/Creatinine Ratio 18.1, Glucose 98, Calcium 8.9, Total Bilirubin 0.90, AST 22, ALT 21, Alkaline Phosphatase 121 H, Total Protein 8.0, Albumin 3.5, Globulin 4.5 H, Albumin/Globulin Ratio 0.8 L 04/26/21 16:41: WBC 10.6, RBC 4.93, Hgb 13.9, Hct 42.5, MCV 86.2, MCH 28.2, MCHC 32.7, RDW Std Deviation 46.7 H, RDW Coeff of Angelo 14.6, Plt Count 363, MPV 8.9, Immature Gran % (Auto) 0.300, Neut % (Auto) 70.5 H, Lymph % (Auto) 15.9 L, [place] % (Auto) 11.9 H, Eos % (Auto) 0.8, Baso % (Auto) 0.6, Absolute Neuts (auto) 7.5, Absolute Lymphs (auto) 1.69, Nucleated RBC % 0 Micro: Microbiology 04/26/21 16:40 Nasal Secretion SARS-CoV-2 Antigen (Rapid) - Final Radiology Impression Chest X-Ray 04/26/21 17:05 IMPRESSION: 1. Large right pleural effusion. CHF with interstitial edema. Electronically Signed: Reg Fontanez MD (Brooks) at 17:23 EST , Service support , Assessment & Plan Assessment/Plan (1) Pleural effusion: (2) Rheumatoid arthritis: QUALIFIERS: Rheumatoid arthritis location: hip Rheumatoid factor presence: unspecified presence Laterality: right Qualified Code(s): M06.9 - Rheumatoid arthritis, unspecified (3) Paroxysmal atrial fibrillation with RVR: (4) HTN (hypertension): QUALIFIERS: Hypertension type: unspecified Qualified Code(s): I10 - Essential (primary) hypertension (5) GERD (gastroesophageal reflux disease): (6) HLD (hyperlipidemia): QUALIFIERS: Hyperlipidemia type: unspecified Qualified Code(s): E78.5 - Hyperlipidemia, unspecified (7) COPD (chronic obstructive pulmonary disease): QUALIFIERS: COPD type: unspecified COPD Qualified Code(s): J44.9 - Chronic obstructive pulmonary disease, unspecified PLAN: 1.?Pleural effusion right side?admit patient to progressive care unit, repeat CBC BMP BNP and INR in the morning, continue oxygen support through the night, order echocardiogram due to mention of congestive heart failure, will consult interventional radiology to perform a thoracentesis 2. Paroxysmal atrial fibrillation with RVR?patient appears to be in in sinus tachycardia at present time and anticoagulation will be discontinued due to anticipated procedure above 3. Hypertension?continue home medications 4. GERD?continue PPI 5. Hyperlipidemia?continue statin 6. COPD?oxygen support as above patient is maintaining a normal saturation at this time 7. DVT prophylaxis?SCDs Charges/Coding Visit Charges Inpatient E&M: 93100 Init Hosp L3
[2021-04-26 20:11] LABS: Prothrombin Time (Protime)PT. 21.8 SECONDS (11.7-14.9)
--- NOTE | 2021-04-26 20:35 | PCS.PANDOC ---
PANDEMIC DOCUMENTATION INITIATED: Date: 01/18/2021 Time: 190
[2021-04-26] MEDS: dilTIAZem CD 240 MG Capsule PO (21:20)
[2021-04-26] MEDS: Furosemide 40 MG Tablet PO (21:20)
[2021-04-26] MEDS: Phytonadione (Vit K1) 5 MG TABLET PO (21:20)
[2021-04-27] VITALS (14 sets, daily range): BP systolic 98–120; BP diastolic 55–82; PULSE 77–124; RESP 16–26; TEMP 36.4–36.8; O2SAT 90–97
--- NOTE | 2021-04-27 | FLU_PTH ---
PATIENT: NIMISHA CEJA LOC: [facility] U#:[id number] AGE/SX: 75/F ROOM: [facility] RE04/26/[address]: Dr. Gurjit Reese MD : 1945 BED: 1 DIS: 04/28/2021 SPEC #: [id number] RECD: 04/27/21 13:52 STATUS: PATO CRABTREE #: [id number] FELICIA: 04/27/21 00:[address]: Gurjit Reese DEPT: CYTOLOGY RECD BY: Mignon Huizar ENTERED: 04/28/21 08:35 SP TYPE: Fluid OTHR DR: MD Dr. Wes Jamil MD Tissues: THORACIC FLUID Procedures: Special Stain Group II Surgery Specimen Level IV Cytospin Fluid HEADER OPERATION: Ultrasound guided right thoracentesis PRE-OP DIAGNOSIS: Right pleural effusion TISSUE SUBMITTED: Thoracentesis fluid DIAGNOSIS CYTOLOGY Thoracentesis fluid (cytospin and cell block): Negative for malignant cells. SJ04/30/21 COMMENT Correlation with clinical findings and appropriate follow up are necessary. CYTOLOGY STUDY Slides are reviewed. CYTOLOGY GROSS Received is 90 ml of broderick cloudy fluid labeled with the patient's name and and designated per the requisition as right thoracentesis. Submitted for cytology preparation including cell block. / CW:david 04/28/21 TC:5 CPT: 98620, 66420
--- NOTE | 2021-04-27 05:55 | ECHOD_ITS ---
Reason For Study: CHF Procedure This was a 2D Doppler, Color Flow transthoracic echocardiogram. The study was technically difficult. Exam performed portable in patient room. Left Ventricle Normal LV size. Left ventricular systolic function is normal. The estimated ejection fraction is 55 %. No regional wall motion abnormalities noted. Right Ventricle Normal RV size. Normal systolic function. Atria The left atrium is moderately enlarged. The right atrium is mildly enlarged. Mitral Valve There is moderate mitral annular calcification. Mild-Moderate (1-2+) anteriorly directed mitral valve insufficiency. Tricuspid Valve Normal tricuspid valve. Mild (1+) tricuspid valve insufficiency. Pulmonary artery systolic pressure is 49 mmHg. Aortic Valve Trisinus/trileaflet aortic valve. Pulmonic Valve Normal pulmonic valve. Great Vessels Normal aortic root. The pulmonary artery is normal size. Normal inferior vena cava. Pericardium/Pleural No pericardial effusion. MMode/2D Measurements & Calculations LVIDd: 3.9 cm IVSd: 0.87 cm Ao root diam: 3.3 cm LVIDs: 2.5 cm LVPWd: 0.87 cm RVDd: 4.8 cm FS: 36.4 % LAV(MOD-bp): 59.8 ml LVAd ap4: 16.9 cm2 SV(MOD-sp4): 21.1 ml LAV(MOD-bp) Indexed: 38.0 ml/m2 LVLd ap4: 6.0 cm LAV(MOD-sp2): 58.5 ml EDV(MOD-sp4): 39.3 ml LAV(MOD-sp4): 58.8 ml EDV(sp4-el): 40.4 ml LVAs ap4: 10.5 cm2 LVLs ap4: 5.2 cm ESV(MOD-sp4): 18.1 ml ESV(sp4-el): 18.1 ml EF(MOD-sp4): 53.8 % EF(sp4-el): 55.1 % SV(sp4-el): 22.3 ml LA A4 area: 20.4 cm2 LA dimension(2D): 4.8 cm RA A4 area: 17.0 cm2 Doppler Measurements & Calculations MV E max andrew: 147.9 cm/sec MV V2 max: 141.2 cm/sec Ao V2 max: 77.9 cm/sec MV max P.0 mmHg Ao max P.4 mmHg MV V2 mean: 52.7 cm/sec MV mean P.8 mmHg MV V2 VTI: 24.7 cm LV V1 max: 65.7 cm/sec TR max andrew: 332.3 cm/sec LV V1 max P.7 mmHg TR max P.2 mmHg ECHO/Echo Complete Interpretation Summary Normal LV size. Left ventricular systolic function is normal. The estimated ejection fraction is 55 %. There is moderate mitral annular calcification. Mild-Moderate (1-2+) anteriorly directed mitral valve insufficiency. Ordering Physician: Junaid Montemayor Referring Physician: CHRISTOPHER BONILLA Performed By: Lisbet Joyner, MABEL, RVT
[2021-04-27 08:03] LABS: Absolute Neutrophil Count 4.5 X10^3/uL (2.0-7.7); Basophil# 0.07 X10^3/uL; Basophil% 0.9 % (0-1); Eosinophils% 2.7 % (0-5); Hematocrit 38.2 % (37-47); Hemoglobin 12.3 g/dL (12.0-15.0); Lymphocyte % 23.9 % (19-41); Mean Corp Hgb Conc 32.2 g/dL (32-36); Mean Corpuscular Hgb 27.6 pg (27.0-32.0); Mean Corpuscular Volume 85.7 fL (81-99); Mean Platelet Vol. 9.1 fl (6.2-12.0); Monocyte# 0.98 X10^3/uL; NRBC Flagged by Analyzer 0 % (0-5); Neutrophil # 4.46 X10^3/uL (2.7-7.7); Neutrophil % 59.1 % (47-70); Platelet Count 328 K/mm3 (150-450); RBC Distribution Width CV 14.6 % (11.6-14.6); RBC Distribution Width SD 45.7 fl (35.1-43.9); Red Blood Count 4.46 M/mm3 (4.2-5.4); White Blood Count 7.5 K/mm3 (4.4-11.0)
[2021-04-27 08:10] LABS: Prothrombin Time (Protime)PT. 21.5 SECONDS (11.7-14.9)
[2021-04-27 08:23] LABS: Anion Gap 6 (5-15); BUN 12 mg/dL (7-18); BUN/Creat Ratio 19.8 RATIO (10-20); Calcium,Total 8.4 mg/dL (8.5-10.1); Chloride 102 mmol/L (98-107); Creatinine, Serum 0.61 mg/dL (0.55-1.02); EST Glomerular Filtration Rate 102 mL/min (>60); Est Glom Filt Rate - Afr Amer 124 mL/min (>60); Estimated Creatinine Clearance 34.91 ml/min; Glucose 75 mg/dL (74-106); Potassium 3.2 mmol/L (3.5-5.1); Sodium Level 138 mmol/L (136-145)
[2021-04-27] MEDS: Multivitamins,Therapeutic Tablet 1 TABLET PO (09:13)
[2021-04-27] MEDS: Calcium Carbonate 500 MG Tablet PO (09:13)
[2021-04-27] MEDS: Potassium Chloride Oral Tablet 20 MEQ PO ×2 (09:13→18:18)
[2021-04-27] MEDS: Pantoprazole Sodium 40 MG Tablet PO (09:13)
--- NOTE | 2021-04-27 10:19 | US_ITS ---
PROCEDURE: ULTRASOUND GUIDED THORACENTESIS. CLINICAL INDICATION: Right-sided pleural effusion.. PHYSICIAN: Dr. Dirk Farooq MEDICATIONS: 1% lidocaine administered subcutaneously for local anesthesia. ACCESS SITE: Right lower thorax, posterior approach. CATHETER: 5 Pakistani thoracentesis needle/catheter system. FLUID: Approximately 1200 mL of cloudy broderick pleural fluid removed. COMPLICATIONS: None immediate. The risks, benefits, and alternatives to the procedure and sedation were explained to the patient. The specific risks of bleeding, infection, and pneumothorax requiring chest tube insertion were discussed and accepted. Written informed consent was obtained. PROCEDURE: Ultrasonographic evaluation of the right lower pleural space was carried out. An adequate pocket was identified. The patient was placed in the sitting, upright position. The overlying skin was prepped and draped in sterile fashion. 1% lidocaine was administered subcutaneously for local anesthesia. Under ultrasound guidance, a 5 Pakistani thoracentesis needle/catheter system was advanced into the right posterior lower pleural fluid collection. The inner stylet was removed and there was spontaneous flow of pleural fluid. Approximately 1200 mL of fluid was manually aspirated. The catheter was removed. Hemostasis was achieved and a sterile dressing was applied. 100 cc were sent to the laboratory for analysis, as requested by the referring clinician. The patient tolerated the procedure well, without immediate complications. A chest x-ray was ordered. US/Thoracentesis W US IMPRESSION: Successful ultrasound-guided right-sided thoracentesis. Electronically Signed: Dirk Farooq MD at 14:39 EST Tel , Service support ,
--- NOTE | 2021-04-27 11:42 | PN.HOSP_ITS ---
Documented by User: Tom WANG 04/27/21 11:58 Subjective Subjective Patient is a 75-year-old female comfortably resting in a chair, alert and orient x3. Patient reports that she is still slightly short of breath but denies any worsening of her symptoms. Denies development of any new symptoms overnight. Does not appear in acute distress. Objective Data Objective Data Vital Signs: Vital Signs Temp Pulse Resp BP Pulse Ox 97.6 F L 83 16 98/65 96 04/27/21 08:30 04/27/21 08:30 04/27/21 08:30 04/27/21 08:30 04/27/21 08:30 Oxygen Flow Rate (L/min) 2 Oxygen Delivery Method Nasal Cannula Weight: 134 lb 4.184 oz Body Mass Index (BMI) 26.2 Intake & Output: Intake and Output for Last 24 Hours 04/25/21 04/26/21 04/27/21 23:59 23:59 23:59 Intake Total 240 / 240 Balance 240 / 240 Lab / Micro Data Result Diagrams: 04/27/21 06:15 04/28/21 05:47 Labs: Laboratory Results - last 24 hr 04/26/21 16:20: Lactic Acid 1.4 04/26/21 16:20: PT 21.8 H, INR 2.0 04/26/21 16:40: Sodium 135 L, Potassium 3.8, Chloride 99, Carbon Dioxide 29.0, Anion Gap 7, BUN 14, Creatinine 0.77, Estim Creat Clear Calc 34.91, Est GFR (MDRD) Af Amer 93, Est GFR (MDRD) Non-Af 77, BUN/Creatinine Ratio 18.1, Glucose 98, Calcium 8.9, Total Bilirubin 0.90, AST 22, ALT 21, Alkaline Phosphatase 121 H, Total Protein 8.0, Albumin 3.5, Globulin 4.5 H, Albumin/Globulin Ratio 0.8 L 04/26/21 16:41: WBC 10.6, RBC 4.93, Hgb 13.9, Hct 42.5, MCV 86.2, MCH 28.2, MCHC 32.7, RDW Std Deviation 46.7 H, RDW Coeff of Angelo 14.6, Plt Count 363, MPV 8.9, Immature Gran % (Auto) 0.300, Neut % (Auto) 70.5 H, Lymph % (Auto) 15.9 L, [place] % (Auto) 11.9 H, Eos % (Auto) 0.8, Baso % (Auto) 0.6, Absolute Neuts (auto) 7.5, Absolute Lymphs (auto) 1.69, Nucleated RBC % 0 04/27/21 06:15: WBC 7.5, RBC 4.46, Hgb 12.3, Hct 38.2, MCV 85.7, MCH 27.6, MCHC 32.2, RDW Std Deviation 45.7 H, RDW Coeff of Angelo 14.6, Plt Count 328, MPV 9.1, Immature Gran % (Auto) 0.400, Neut % (Auto) 59.1, Lymph % (Auto) 23.9, [place] % (Auto) 13.0 H, Eos % (Auto) 2.7, Baso % (Auto) 0.9, Absolute Neuts (auto) 4.5, Absolute Lymphs (auto) 1.80, Nucleated RBC % 0 04/27/21 06:15: PT 21.5 H, INR 2.0 04/27/21 06:15: Sodium 138, Potassium 3.2 L, Chloride 102, Carbon Dioxide 30.0, Anion Gap 6, BUN 12, Creatinine 0.61, Estim Creat Clear Calc 34.91, Est GFR (MDRD) Af Amer 124, Est GFR (MDRD) Non-Af 102, BUN/Creatinine Ratio 19.8, Glucose 75, Calcium 8.4 L Micro: Microbiology 04/26/21 16:40 Nasal Secretion SARS-CoV-2 Antigen (Rapid) - Final Radiography Diagnostic Testing: Radiology Impression Chest X-Ray 04/26/21 17:05 IMPRESSION: 1. Large right pleural effusion. CHF with interstitial edema. Electronically Signed: Reg Fontanez MD (Bro[place]) at 17:23 EST , Service support , Physical Exam Const alert, oriented x3 and no apparent distress HEENT head/scalp atraumatic and moist oral mucous membranes Head and Scalp: normocephalic Eyes PERRL, EOMs intact bilaterally and conjunctivae normal Neck no lymphadenopathy, supple and no JVD Resp normal respiratory effort, no retractions and no use of accessory muscles Resp Narrative: Currently satting 96% on 2 L via nasal cannula. Auscultation: diminished lung sounds right throughout Cardio regular rate, regular rhythm, no murmurs and no JVD GI normal to inspection, nondistended, normoactive bowel sounds, soft to palpation and non-tender Extremity normal to inspection, full ROM and no clubbing, cyanosis or edema Skin no rashes or lesions noted, no wounds and skin turgor normal Neuro CN's II-XII intact bilaterally Psych affect normal Assessment & Plan Assessment/Plan (1) Pleural effusion: PLAN: Day 1 Discharge planning: Current plan is for patient to discharge home, case management following. 1) right-sided pleural effusion Patient is currently satting 92% on 2 L via nasal cannula. Patient to have right-sided diagnostic and therapeutic thoracentesis. Patient does have a history of recurrent pleural effusions, no prior work-up has been completed. Continue Lasix. Pleural fluid to be analyzed for exudate versus transudate. 2) paroxysmal A. fib with RVR Presented in sinus tachycardia on admission, rate is currently controlled. On atenolol and diltiazem for rate control. Patient is anticoagulated on Coumadin. Coumadin on hold due to upcoming procedure. 3) GERD Continue PPI DVT prophylaxis - Not indicated. Patient seen by Tom Dixon PA-C, under the supervision of Dr. Reese. Documented by User: Dr. Gurjit Reese MD 04/28/21 16:25 Objective Data Lab / Micro Data Result Diagrams: 04/27/21 06:15 04/28/21 05:47 Charges/Coding Addendum Addendum: Dr. Reese: I personally reviewed the chart and examined the patient, and agree with the above findings. 75-year-old female was been monitored as an outpatient for right pleural effusion present to the hospital with shortness of breath. She was can have a thoracentesis in June however she is gotten more short of breath. Her Coumadin has been held and she was given a dose of vitamin K in the ER. They proceeded with thoracentesis today however it does not appear that fluid studies were obtained we will monitor overnight and have an ambulatory pulse ox in the morning. Visit Charges Inpatient E&M: 71343 Subs Hosp L2
--- NOTE | 2021-04-27 11:50 | CASEMGMT ---
RN CHAVO DESK LIEUTENANT CM to room to meet with patient for initial transition planning/care coordination assessment. PEYTON TONY introduced self and role at [facility]. Pt voices understanding and consents to assessment at this time. Pt sitting up in bed in no distress at this time. Pt is A/O at this time and answers all questions appropriately. Care providers, pharmacy, and demographics verified/updated at this time. PCP: Dr Magallon Specialists: Dr Arriaga--cardiology, Dr Edwards-pulmonology Preferred Pharmacy: [facility] Retail Insurance: [employer] Prescription Benefit: Yes Living Will/HPOA: Pt does not currently have LW/HCPOA and declines info at this time. Pt made aware that she can contact SW as an out-pt and make appt in the future if she decides she would like to talk with someone about this or would like to utilize [facility] social work for advanced directive completion. Given [employer] card with information and contact number. Pt expresses understanding. LNOK: , 7 adult children Living Arrangements: Lives w/her in 2-story home w/4 steps to enter. One daughter, 2 sons, and 22-yr-old grandson live w/them. Pt and 's bedroom is on 2nd floor. Stairs w/railing on one side. Bathroom is on main floor. Pt states could re-arrange for FFSU If we had to. Pt is independent w/ADL's and IADL's. She states she does most of the home mgmt tasks. Family does assist at times and have been helping more since she has not been feeling well. does not hear well and has health issues. Grandson helps to care for him. Pt manages all of her and her 's medications and appts. Transportation: Family, friend Lita DME: States has the following DME: tub bench, cane (does not use often). Does not have home O2. Pt was provided with list of DME providers consistent with the patient's preferred geographic region, medical needs, and insurance network. Pt states she has no preference. Pt states no need for further DME at this time. HHC/SNF: No hx of either. Denies need for HHC. No needs identified at this time. Pt wishes to return home and states has no concerns with going home at time of discharge. CM to follow for home oxygen needs and any further discharge planning/needs. Pt voices no further concerns/needs at this time. Advised pt to ask for CM if any further questions/concerns/needs arise. Voices understanding. PLAN: Home w/family support and discharge plans in place. Follow for any O2 needs @ discharge. Alida GAYN RN CM
--- NOTE | 2021-04-27 13:20 | RAD_ITS ---
INDICATION: post thora EXAMINATION/TECHNIQUE: X-RAY - XR Chest 2 Views COMPARISON: Chest radiograph from 04/26/2021 FINDINGS: LINES/DEVICES: None. Trace residual right pleural effusion status post thoracentesis, significantly improved from prior. Right basilar atelectasis. No sizable pneumothorax. Redemonstration of bilateral pulmonary vascular congestion. Heart size is stable. Bones and soft tissues are unchanged. RAD/Chest Insp/Exp 2 View IMPRESSION: 1. Trace residual right pleural effusion status post thoracentesis, significant improvement from prior. 2. Redemonstration of bilateral pulmonary vascular congestion. Electronically Signed: Dirk Farooq MD at 14:34 EST Tel , Service support ,
--- NOTE | 2021-04-27 15:52 | CHAPLAIN ---
Type of Pastoral Visit ___ Initial Visit ___ Follow-up Visit ___ On-call Visit ___ General Patient Visit ___ Spiritual Assessment ___ Family Conference ___ Bereavement ___ Rapid Response ___ Code Blue _x__ Other (describe below) Pastoral Care Referral From _x__ Patient ___ Family ___ Nurse ___ Physician ___ Plant Pathologist ___ Cotton Chopper ___ Other (describe below) Sacrament/Intervention ___ Active listening ___ Anointing ___ Bahai ___ Bereavement ___ Communion ___ Citlaly exploration ___ ___ Life review ___ Prayer ___ Reconciliation ___ Sacrament of Sick ___ Supportive presence ___ Wedding _x__ Other (describe below) Pastoral Comments patient was not in the room but out getting a procedure completed; in room was pt's caregiver who gave information for support and also sought spiritual care support and prayer for herself
[2021-04-27] MEDS: Furosemide 40 MG Tablet PO (21:26)
[2021-04-27] MEDS: 0.9% Saline Lock 10 ML Syringe IV (22:01)
[2021-04-27] MEDS: dilTIAZem 25 MG/5 ML Vial 10 MG IV BOLUS (23:35)
[2021-04-28] VITALS (10 sets, daily range): BP systolic 101–119; BP diastolic 66–80; PULSE 109–126; RESP 16–18; TEMP 36.8–37.1; O2SAT 90–97
[2021-04-28] MEDS: dilTIAZem 30 MG Tablet PO (00:21)
[2021-04-28] MEDS: dilTIAZem 25 MG/5 ML Vial 5 MG IV BOLUS (04:40)
[2021-04-28] MEDS: dilTIAZem CD 240 MG Capsule PO (04:56)
[2021-04-28 06:49] LABS: Anion Gap 9 (5-15); BUN 10 mg/dL (7-18); BUN/Creat Ratio 15.9 RATIO (10-20); Calcium,Total 8.3 mg/dL (8.5-10.1); Chloride 100 mmol/L (98-107); Creatinine, Serum 0.63 mg/dL (0.55-1.02); EST Glomerular Filtration Rate 98 mL/min (>60); Est Glom Filt Rate - Afr Amer 119 mL/min (>60); Estimated Creatinine Clearance 34.91 ml/min; Glucose 91 mg/dL (74-106); Potassium 3.4 mmol/L (3.5-5.1); Sodium Level 137 mmol/L (136-145)
[2021-04-28] MEDS: Pantoprazole Sodium 40 MG Tablet PO (09:32)
[2021-04-28] MEDS: Calcium Carbonate 500 MG Tablet PO (09:32)
[2021-04-28] MEDS: Atenolol 100 MG Tablet PO (09:32)
[2021-04-28] MEDS: Furosemide 40 MG Tablet PO (09:32)
[2021-04-28] MEDS: Multivitamins,Therapeutic Tablet 1 TABLET PO (09:33)
[2021-04-28] MEDS: Potassium Chloride Oral Tablet 20 MEQ PO (09:33)
--- NOTE | 2021-04-28 10:57 | PCM.DC ---
Discharge Instructions Diet Discharge Diet: No restrictions Activity Discharge Activity: Return to Normal Activity Weight Bearing Status: Weight bearing as tolerated Dressing / Incision Call your doctor if you observe: Fever of 101 or Higher, Numbness or Tingling, Shortness of breath, Dizziness, Chest pain, Increased palpitations (irregular heartbeat) and Calf discomfort Follow Up Care Please Follow Up With: Primary care provider When: Within the next two weeks. Test Results: Test results from this visit will be discussed in further detail at your follow-up appointment, if applicable. Discharge Plan Admission Admit Date/Time: 04/26/21 19:55 Primary Reason for Your Visit: Shortness of breath Attending Provider: Gurjit Reese Primary Care Provider: Wes Magallon Instructions Patient Instructions: Thoracentesis Dc Discharge Orders/Prescriptions Prescriptions: Continued multivitamin Tablet 1 tab PO DAILY RF: 0 calcium carbonate 600 mg calcium (1,500 mg) tablet 600 mg PO DAILY RF: 0 furosemide 40 mg tablet 40 mg PO BID RF: 0 (DME) Handicap placard Qty: 1 RF: 0 albuterol sulfate 90 mcg/actuation HFA aerosol inhaler 2 puff INHALATION Q4H PRN (Reason: SOB) RF: 0 omeprazole 40 MG capsule 40 mg PO DAILY RF: 0 warfarin 4 mg tablet 4 mg PO MOWEFR RF: 0 warfarin 4 mg tablet 2 mg PO SUTUTHSA RF: 0 potassium chloride 20 mEq tablet,ER particles/crystals 20 meq PO BID RF: 0 atenolol 100 mg tablet 100 mg PO DAILY RF: 0 diltiazem HCl 240 mg capsule,extended release 24hr 240 mg PO DAILY RF: 0 Referrals / Follow Up: Junaid Arriaga MD [STAFF PHYSICIAN] - Within 2 Weeks Ranjith Ewdards MD [NON-STAFF] - Within 2 Weeks (Follow up for recurrent pleural effusions. ) Wes Magallon MD [Primary Care Provider] - Within 2 Weeks Disposition Disposition (needs filled in before D/C Order can be placed): Home, Self Care
--- NOTE | 2021-04-28 11:01 | CASEMGMT ---
PEYTON TONY NOTE: Ambulatory home O2 testing has been completed. Pt does not qualify for Home O2. Alida MATTHEW RN CM
--- NOTE | 2021-04-28 13:13 | DS.PCM_ITS ---
Documented by User: Tom WANG 04/28/21 13:33 Providers Date of Admission: 04/26/21 Primary Care Physician: Dr. Wes Bonilla MD Reason For Visit: RIGHT PLEURAL EFFUSION Diagnosis Discharge Diagnosis (1) Pleural effusion: Status: Chronic Code(s): J90 - Pleural effusion, not elsewhere classified Medications at Discharge Home Medications omeprazole 40 mg PO DAILY 10/19/14 calcium carbonate 600 mg calcium (1,500 mg) tablet 600 mg PO DAILY 06/19/19 multivitamin 1 tab PO DAILY 06/19/19 furosemide 40 mg tablet 40 mg PO BID tab 11/22/19 Handicap placard #1 ea 01/07/20 warfarin 4 mg tablet 2 mg PO SUTUTHSA 01/07/20 warfarin 4 mg tablet 4 mg PO MOWEFR 01/07/20 albuterol sulfate 90 mcg/actuation aerosol inhaler 2 puff INHALATION Q4H PRN g 01/09/20 atenolol 100 mg PO DAILY 04/26/21 diltiazem HCl 240 mg PO DAILY 04/26/21 potassium chloride 20 meq PO BID 04/26/21 Hospital Course Procedures 2-D Echocardiogram and Transthoracic echo Summary of Care Provided Minutes Spent on Discharge: 35 Hospital Course: Patient is a 75-year-old female who was admitted to the hospital on 04/26/2021 for management and evaluation of large right-sided pleural effusion. A diagnostic and therapeutic right-sided thoracentesis was ordered and 1200 cc of fluid was aspirated. According to the ultrasound report, 100 cc of fluid were sent for analysis, however results were not available at the time of discharge, so source of fluid cannot be identified at this time. An echocardiogram was also obtained on admission due to concern for CHF and de monstrated normal LV size and systolic function, an estimated EF of 55% with moderate mitral annular calcification. In preparation for patient for discharge, and ambulatory pulse ox was obtained and patient did not qualify for home oxygen. All home medications were continued and patient is to follow-up with her primary care provider, cyber policy and strategy planner and the director revenue within the next 2 weeks. Pleural fluid results to be followed up with. Patient seen by Tom Dixon PA-C, under the supervision of Dr. Reese. Physical Exam Narrative Patient is a 75-year-old female comfortably resting in a chair, alert and orient x3. Patient reports resolution of her shortness of breath from admission and reports feeling much better. Denies development of any new symptoms overnight. Does not appear to be in acute distress. Const alert, oriented x3 and no apparent distress HEENT normocephalic, head/scalp atraumatic and hearing grossly normal bilaterally Eyes PERRL, EOMs intact bilaterally and conjunctivae normal Neck no lymphadenopathy, supple and no JVD Resp normal respiratory effort, no retractions, no use of accessory muscles and clear to auscultation bilaterally Resp Narrative: Satting 96% on 2 L via nasal cannula. Cardio regular rate, regular rhythm, no murmurs and no JVD GI normal to inspection, nondistended, normoactive bowel sounds, soft to palpation and non-tender Extremity normal to inspection, full ROM and no clubbing, cyanosis or edema Skin no rashes or lesions noted, no wounds and skin turgor normal Neuro CN's II-XII intact bilaterally Psych affect normal Weight / BMI Weight Weight: 134 lb 4.184 oz Body Mass Index (BMI) 26.2 ABG / Lab / Microbiology Data Result Diagrams: 04/27/21 06:15 04/28/21 05:47 Laboratory: Laboratory Results - last 24 hr 04/28/21 05:47: Sodium 137, Potassium 3.4 L, Chloride 100, Carbon Dioxide 28.0, Anion Gap 9, BUN 10, Creatinine 0.63, Estim Creat Clear Calc 34.91, Est GFR (MDRD) Af Amer 119, Est GFR (MDRD) Non-Af 98, BUN/Creatinine Ratio 15.9, Glucose 91, Calcium 8.3 L Microbiology: Microbiology 04/26/21 16:40 Nasal Secretion SARS-CoV-2 Antigen (Rapid) - Final Radiography Diagnostic Testing: Radiology Impression Echocardiogram 04/27/21 05:55 Interpretation Summary Normal LV size. Left ventricular systolic function is normal. The estimated ejection fraction is 55 %. There is moderate mitral annular calcification. Mild-Moderate (1-2+) anteriorly directed mitral valve insufficiency. Ordering Physician: Junaid Montemayor Referring Physician: WES BONILLA Performed By: Lisbet Joyner RDCS, RVT Thoracentesis Ultrasound 04/27/21 10:19 IMPRESSION: Successful ultrasound-guided right-sided thoracentesis. Electronically Signed: Dirk Farooq MD at 14:39 EST Tel , Service support , Chest X-Ray 04/27/21 13:20 IMPRESSION: 1. Trace residual right pleural effusion status post thoracentesis, significant improvement from prior. 2. Redemonstration of bilateral pulmonary vascular congestion. Electronically Signed: Dirk Farooq MD at 14:34 EST Tel , Service support , D/C Instructions Discharge Diet: No restrictions Weight Bearing Status: Weight bearing as tolerated Call your doctor if you observe: Fever of 101 or Higher, Numbness or Tingling, Shortness of breath, Dizziness, Chest pain, Increased palpitations (irregular heartbeat) and Calf discomfort Please Follow Up With: Primary care provider When: Within the next two weeks. Meaningful Use Info Meaningful Use Diagnoses (Choose all that apply): None applicable Discharge Plan Admission Admit Date/Time: 04/26/21 19:55 Primary Reason for Your Visit: Shortness of breath Attending Provider: Gurjit Reese Primary Care Provider: Wes Bonilla Instructions Patient Instructions: Thoracentesis Dc Discharge Orders/Prescriptions Prescriptions: Continued multivitamin Tablet 1 tab PO DAILY RF: 0 calcium carbonate 600 mg calcium (1,500 mg) tablet 600 mg PO DAILY RF: 0 furosemide 40 mg tablet 40 mg PO BID RF: 0 (DME) Handicap placard Qty: 1 RF: 0 albuterol sulfate 90 mcg/actuation HFA aerosol inhaler 2 puff INHALATION Q4H PRN (Reason: SOB) RF: 0 omeprazole 40 MG capsule 40 mg PO DAILY RF: 0 warfarin 4 mg tablet 4 mg PO MOWEFR RF: 0 warfarin 4 mg tablet 2 mg PO SUTUTHSA RF: 0 potassium chloride 20 mEq tablet,ER particles/crystals 20 meq PO BID RF: 0 atenolol 100 mg tablet 100 mg PO DAILY RF: 0 diltiazem HCl 240 mg capsule,extended release 24hr 240 mg PO DAILY RF: 0 Referrals / Follow Up: Junaid Arriaga MD [STAFF PHYSICIAN] - 05/14/21 3:00 pm Wes Bonilla MD [Primary Care Provider] - Within 2 Weeks (Please call and make an appointment. ) Disposition Disposition (needs filled in before D/C Order can be placed): Home, Self Care Documented by User: Dr. Gurjit Reese MD 04/28/21 16:28 Providers Date of Admission: 04/26/21 Reason For Visit: RIGHT PLEURAL EFFUSION Medications at Discharge Home Medications omeprazole 40 mg PO DAILY 10/19/14 calcium carbonate 600 mg calcium (1,500 mg) tablet 600 mg PO DAILY 06/19/19 multivitamin 1 tab PO DAILY 06/19/19 furosemide 40 mg tablet 40 mg PO BID tab 11/22/19 Handicap placard #1 ea 01/07/20 warfarin 4 mg tablet 2 mg PO SUTUTHSA 01/07/20 warfarin 4 mg tablet 4 mg PO MOWEFR 01/07/20 albuterol sulfate 90 mcg/actuation aerosol inhaler 2 puff INHALATION Q4H PRN g 01/09/20 atenolol 100 mg PO DAILY 04/26/21 diltiazem HCl 240 mg PO DAILY 04/26/21 potassium chloride 20 meq PO BID 04/26/21 ABG / Lab / Microbiology Data Result Diagrams: 04/27/21 06:15 04/28/21 05:47 Discharge Plan Admission Admit Date/Time: 04/26/21 19:55 Primary Reason for Your Visit: Shortness of breath Attending Provider: Gurjit Reese Primary Care Provider: Wes Bonilla Instructions Patient Instructions: Thoracentesis Dc Discharge Orders/Prescriptions Prescriptions: Continued multivitamin Tablet 1 tab PO DAILY RF: 0 calcium carbonate 600 mg calcium (1,500 mg) tablet 600 mg PO DAILY RF: 0 furosemide 40 mg tablet 40 mg PO BID RF: 0 (DME) Handicap placard Qty: 1 RF: 0 albuterol sulfate 90 mcg/actuation HFA aerosol inhaler 2 puff INHALATION Q4H PRN (Reason: SOB) RF: 0 omeprazole 40 MG capsule 40 mg PO DAILY RF: 0 warfarin 4 mg tablet 4 mg PO MOWEFR RF: 0 warfarin 4 mg tablet 2 mg PO SUTUTHSA RF: 0 potassium chloride 20 mEq tablet,ER particles/crystals 20 meq PO BID RF: 0 atenolol 100 mg tablet 100 mg PO DAILY RF: 0 diltiazem HCl 240 mg capsule,extended release 24hr 240 mg PO DAILY RF: 0 Referrals / Follow Up: Junaid Arriaga MD [STAFF PHYSICIAN] - 05/14/21 3:00 pm Wes Bonilla MD [Primary Care Provider] - Within 2 Weeks (Please call and make an appointment. ) Disposition Disposition (needs filled in before D/C Order can be placed): Home, Self Care Charges/Coding Addendum Addendum: Dr. Reese: I personally reviewed the chart and examined the patient, and agree with the above findings. 75-year-old female was been monitored as an outpatient for right pleural effusion present to the hospital with shortness of breath. She was can have a thoracentesis in June however she is gotten more short of breath. Her Coumadin has been held and she was given a dose of vitamin K in the ER. They proceeded with thoracentesis today however it does not appear that fluid studies were obtained we will monitor overnight and have an ambulatory pulse ox in the morning. 04/28/2021: She feels much better today, and on ambulatory pulse ox she did not require any oxygen. It does appear that her pleural fluid analysis was delayed and at the time of her discharge is still not back. I discussed with her the plan for discharge today she expressed understanding of the risk and benefits of going home and she would like to go home today. Of note she has been a little bit tachycardic secondary to the fact that her home blood pressure and heart rate medications were held yesterday because of a borderline blood pressure. These were reinitiated today and her heart rate did come down into the mid 90s. I did discuss with her that if her heart rate were to remain elevated that she were to develop chest pain that she should come back to the hospital. I discussed with her the need to follow-up with her PCP as well as her director revenue as an outpatient for further evaluation and follow-up on the fluid studies. Visit Charges Inpatient E&M: 09700 Disch Hosp
--- NOTE | 2021-04-28 14:15 | CHAPLAIN ---
Type of Pastoral Visit _x__ Initial Visit ___ Follow-up Visit ___ On-call Visit ___ General Patient Visit ___ Spiritual Assessment ___ Family Conference ___ Bereavement ___ Rapid Response ___ Code Blue ___ Other (describe below) Pastoral Care Referral From _x__ Patient ___ Family ___ Nurse ___ Physician ___ Director Independent ___ Hvac Technician Residential ___ Other (describe below) Sacrament/Intervention _x__ Active listening ___ Anointing ___ Buddhist ___ Bereavement ___ Communion _x__ Citlaly exploration ___ ___ Life review _x__ Prayer ___ Reconciliation ___ Sacrament of Sick _x__ Supportive presence ___ Wedding ___ Other (describe below) Pastoral Comments patient is sitting up in chair having just finished lunch; pt states her pleasure at feeling better and improved; pt has congregation connection and strong citlaly in God which helps her in times like this; prayer welcomed
== END 2021-04-28 14:30 | disposition home or self-care (01) | DRG 292 ==
LOC: ED 19:54 → PCU 20:08
PROVIDERS: Physician Assistant; Admitting Provider Family Medicine; Emergency Provider Emergency Medicine; PCP Family Medicine; Visit Provider Family Medicine
DX: I11.0 Hypertensive heart disease with heart failure (principal); Q87.40 Marfan syndrome, unspecified; J91.8 Pleural effusion in other conditions classified elsewhere; I50.20 Unspecified systolic (congestive) heart failure; I27.20 Pulmonary hypertension, unspecified; I48.0 Paroxysmal atrial fibrillation; K21.9 Gastro-esophageal reflux disease without esophagitis; M06.9 Rheumatoid arthritis, unspecified; J44.9 Chronic obstructive pulmonary disease, unspecified; Z87.01 Personal history of pneumonia (recurrent); Z79.01 Long term (current) use of anticoagulants; Z79.899 Other long term (current) 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
CPT/HCPCS: 32555; 36415; 71045; 71046; 80048; 80053; 83605; 85025; 85610; 87426; 88108; 88305; 88313; 93306; 99285; A4216

== ENCOUNTER → 2021-05-14 15:41 | Outpatient (CLI) | payer MEDICARE, SELFPAY ==
[2021-05-14 16:55] LABS: Anion Gap 5 (5-15); BNP,B-Type NATRIURETIC PEPTIDE 437.1 pg/mL (0-100); BUN 11 mg/dL (7-18); BUN/Creat Ratio 13.5 RATIO (10-20); Calcium,Total 8.8 mg/dL (8.5-10.1); Chloride 103 mmol/L (98-107); Creatinine, Serum 0.82 mg/dL (0.55-1.02); EST Glomerular Filtration Rate 73 mL/min (>60); Est Glom Filt Rate - Afr Amer 88 mL/min (>60); Glucose 130 mg/dL (74-106); Potassium 3.8 mmol/L (3.5-5.1); Sodium Level 138 mmol/L (136-145)
== END ==
PROVIDERS: PCP Family Medicine; Visit Provider Nurse Practitioner Gerontology
DX: R06.02 Shortness of breath (principal)
CPT/HCPCS: 36415; 80048; 83880

== ENCOUNTER 2021-06-18 20:06 | Inpatient (IN) | payer MEDICARE, SELFPAY ==
[2021-06-18] VITALS (10 sets, daily range): BP systolic 107–126; BP diastolic 82–95; PULSE 105–140; RESP 20–28; TEMP 36.4–36.8; O2SAT 90–98; BMI 25.3
[2021-06-18 20:38] LABS: Absolute Lymphocyte Count 1.48 X10^3/uL (0.83-4.51); Absolute Neutrophil Count 6.7 X10^3/uL (2.0-7.7); Basophil# 0.05 X10^3/uL; Basophil% 0.5 % (0-1); Eosinophil# 0.15 X10^3/uL; Eosinophils% 1.6 % (0-5); Hematocrit 39.9 % (37-47); Hemoglobin 12.9 g/dL (12.0-15.0); Lymphocyte # 1.48 X10^3/ul (0.83-4.51); Lymphocyte % 15.4 % (19-41); Mean Corp Hgb Conc 32.3 g/dL (32-36); Mean Corpuscular Volume 86.6 fL (81-99); Mean Platelet Vol. 9.1 fl (6.2-12.0); Monocyte# 1.19 X10^3/uL; Monocyte% 12.4 % (0-10); NRBC Flagged by Analyzer 0 % (0-5); Neutrophil # 6.73 X10^3/uL (2.7-7.7); Neutrophil % 69.8 % (47-70); Platelet Count 364 K/mm3 (150-450); RBC Distribution Width CV 14.7 % (11.6-14.6); RBC Distribution Width SD 46.5 fl (35.1-43.9); Red Blood Count 4.61 M/mm3 (4.2-5.4); White Blood Count 9.6 K/mm3 (4.4-11.0)
[2021-06-18 20:53] LABS: Anion Gap 5 (5-15); BUN 16 mg/dL (7-18); BUN/Creat Ratio 18.2 RATIO (10-20); Calcium,Total 8.9 mg/dL (8.5-10.1); Chloride 102 mmol/L (98-107); Creatinine, Serum 0.88 mg/dL (0.55-1.02); EST Glomerular Filtration Rate 67 mL/min (>60); Est Glom Filt Rate - Afr Amer 81 mL/min (>60); Estimated Creatinine Clearance 41.68 ml/min; Glucose 117 mg/dL (74-106); Potassium 3.9 mmol/L (3.5-5.1); Sodium Level 137 mmol/L (136-145)
[2021-06-18 20:55] LABS: BNP,B-Type NATRIURETIC PEPTIDE 329.1 pg/mL (0-100)
--- NOTE | 2021-06-18 21:40 | RAD_ITS ---
STUDY: X-RAY CHEST REASON FOR EXAM: Female, 75 years old. sob TECHNIQUE: Single frontal view of the chest. COMPARISON: 04/27/2021 FINDINGS: Mild edema. Moderately large right pleural effusion increased. Cardiomegaly. Normal mediastinum and claudia. Normal visualized pulmonary arteries. Normal visualized aortic arch and descending thoracic aorta. Normal visualized thoracic spine. Normal visualized ribs, clavicles, and shoulders. There is no demonstrated abnormality of the visualized soft tissue structures of the upper abdomen. RAD/Chest 1 View (Portable) IMPRESSION: Moderately large right pleural effusion increased and mild congestion Electronically Signed: Landon Ibrahim MD at 22:17 EST , Service support ,
[2021-06-18 21:48] LABS: Troponin-I HS 6 pg/mL (3.0-54.0)
[2021-06-18 22:03] LABS: International Normalized Ratio 1.8; Prothrombin Time (Protime)PT. 20.3 SECONDS (11.7-14.9)
--- NOTE | 2021-06-18 22:11 | PCM.HP.STD ---
HPI - General General Date of Admission: 06/18/21 Date of Service: 06/18/21 Chief Complaint: Recurrent dyspnea, hypoxia. HPI Narrative The patient is a 75 y/o F w/ PMHx: Chronic COPD, HTN, HLD, GERD, Rheumatoid arthritis, Marfan's syndrome, PAF on coumadin therapy who presents to the [facility] ED on 06/18/21 with history of prior 04/26/2021 admission to the hospital for a large right-sided pleural effusion management with hypoxia with diagnostic and therapeutic right-sided thoracentesis with removal of 1200 cc of fluid and echocardiogram at that time with normal LV size, normal systolic function, EF 55% with moderate mitral annular calcification with unfortunately progressively worsening dyspnea, worse with exertion similar to prior presentation with noted similar complaints with recent cardiology evaluation but it is since been worsening prompting eventual ED evaluation. She also notes orthopnea which has been worsening steadily. Work-up in the ED included T 98, heart rate ranging 1 21-1 40, BP 122/85, respiratory rate 20, 90% initially on room air with hypoxia with exertion transition to 95% on 3 L nasal cannula, CBC with WC 9.6, hemoglobin 12.9, platelet 364 without marked shift, BMP with glucose 117 otherwise not marked appearing, BNP 329.1, high-sensitivity cardiac troponin 6, rapid COVID antigen negative, chest x-ray with recurrent right sided large effusion, EKG atrial fibrillation with RVR, INR 1.8. In the ED patient administered Cardizem bolus and placed eventually on Cardizem drip. [facility] Medical History Chronic anticoagulation COPD (chronic obstructive pulmonary disease) COPD (chronic obstructive pulmonary disease) GERD (gastroesophageal reflux disease) HLD (hyperlipidemia) HTN (hypertension) Hypokalemia Hyponatremia Marfans syndrome PAF (paroxysmal atrial fibrillation) Paroxysmal atrial fibrillation with RVR Pleural effusion PNA (pneumonia) Pulmonary hypertension Rheumatoid arthritis Rheumatoid arthritis Subtherapeutic international normalized ratio (INR) Home Medications omeprazole 40 mg PO DAILY 10/19/14 [History Last Taken 04/26/21] calcium carbonate 600 mg calcium (1,500 mg) tablet 600 mg PO DAILY 06/19/19 [History Last Taken 04/26/21] multivitamin 1 tab PO DAILY 06/19/19 [History Last Taken 04/26/21] furosemide 40 mg tablet 40 mg PO BID tab 11/22/19 [History Last Taken 04/26/21] Handicap placard #1 ea 01/07/20 [Rx Last Taken Unknown] warfarin 4 mg tablet 2 mg PO SUTUTHSA 01/07/20 [History Last Taken 04/25/21] warfarin 4 mg tablet 4 mg PO MOWEFR 01/07/20 [History Last Taken 04/23/21] albuterol sulfate 90 mcg/actuation aerosol inhaler 2 puff INHALATION Q4H PRN g 01/09/20 [History Last Taken 04/26/21] atenolol 100 mg PO DAILY 04/26/21 [History Last Taken 04/26/21] diltiazem HCl 240 mg PO DAILY 04/26/21 [History Last Taken 04/26/21] potassium chloride 20 meq PO BID 04/26/21 [History Last Taken 04/26/21] Allergy/AdvReac Type Severity Reaction Status Date / Time pneumococcal vaccine Allergy Severe Rash Verified 06/18/21 20:10 [From Prevnar 13 (PF)] Latex, Natural Rubber Allergy Rash Verified 06/18/21 20:10 rosuvastatin calcium Allergy myalgias Verified 06/18/21 20:10 [From Crestor] ibuprofen AdvReac Nausea Verified 06/18/21 20:10 Family History (Updated 06/19/21 @ 04:[address] Nany Pinon MD) Mother Diabetes Colon cancer Marfan syndrome Sister Diabetes Hypertension Brother Marfan syndrome COPD (chronic obstructive pulmonary disease) Brother Marfan syndrome Father Gastric ulcer GERD (gastroesophageal reflux disease) Surgical History History of eye surgery History of hysterectomy Social History (Updated 06/19/21 @ 04:[address] Nany Pinon MD) household members: spouse housing: other details: They take care of their handicap son who also lives with them. Smoking Status: Never smoker alcohol intake: never substance use type: does not use caffeine: Yes Type: coffee Number of servings: 4 ROS ROS Narrative Admission Review of Systems: CONSTITUTIONAL: No weight loss, fever, chills, + weakness or fatigue. HEENT: Eyes: No visual loss, blurred vision, double vision or yellow sclerae. Ears, Nose, Throat: No hearing loss, sneezing, congestion, runny nose or sore throat. SKIN: No rash or itching, lesions, wounds. CARDIOVASCULAR: + Orthopnea, palpitations, No chest pain, edema, syncopal events. RESPIRATORY: + shortness of breath, cough, No marked sputum, wheezing, hemoptysis. GASTROINTESTINAL: No anorexia, nausea, vomiting or diarrhea, abdominal pain, melena, BRBPR. GENITOURINARY: No dysuria, frequency, urgency or retention. NEUROLOGICAL: No headache, dizziness, syncope, paralysis, ataxia, numbness or tingling in the extremities, focal weakness, change in bowel or bladder control, seizure. MUSCULOSKELETAL: + muscle, back pain, joint pain or stiffness. HEMATOLOGIC: + anemia, bleeding or bruising. LYMPHATICS: No enlarged nodes. No history of splenectomy. PSYCHIATRIC: No history of depression or anxiety. ENDOCRINOLOGIC: No reports of sweating, cold or heat intolerance. No polyuria or polydipsia. ALLERGIES: No history of asthma, hives, eczema or rhinitis. Vital Signs Vital Signs Vital Signs: 06/18/21 20:07 06/18/21 20:50 06/18/21 20:55 Temperature 98.0 F 98.0 F Temperature Source Temporal Temporal Pulse Rate 121 H 121 H Respiratory Rate 20 H 20 H Respiratory Effort Short of Breath Labored Respiratory Depth Shallow Respiratory Pattern Tachypnea Blood Pressure 122/85 H 122/85 H Blood Pressure Mean 97 97 Pulse Ox 90 90 Oxygen Delivery Method Room Air Room Air Room Air Oxygen Flow Rate (L/min) 06/18/21 21:19 Temperature 97.6 F L Temperature Source Temporal Pulse Rate 140 H Respiratory Rate 22 H Respiratory Effort Respiratory Depth Respiratory Pattern Blood Pressure 107/95 H Blood Pressure Mean 99 Pulse Ox 95 Oxygen Delivery Method Nasal Cannula Oxygen Flow Rate (L/min) 3 Weight Weight: 134 lb Body Mass Index (BMI) 25.3 Physical Exam Narrative Physical Examination: General: Awake, alert, oriented x 3 and cooperative, seated upright in the ED bed, fatigued, Cardizem drip in place with rate improving but still elevated. Skin: Normal color, normal turgor, no icterus, no cyanosis. HEENT: AT/NC, EOMI, PERRLA, mildly dry MM, no carotid bruits or JVD noted. Lungs: Significantly diminished, greater right side, mildly increased respiratory rate, no evidence of any distress, no rhonchi or wheezing. Heart: Irregular irregular; no gallop, rub audible. Abdomen: Soft, NTTP, ND, normal BS, no HSM. Extremities: No cyanosis, clubbing, or edema. Neurological: Patient awake, alert, oriented as noted, cognitive function intact; pupils equally reactive to light and accommodation, cranial nerves II-XII grossly normal, moving all 4 extremities, no focal deficits, strength moderately to severely globally decreased secondary to acute presentation and complaints. Psychiatric: Affect appears fatigued, no acute evidence of depressive or anxiety feelings. Results Lab / Micro Data Result Diagrams: 06/19/21 03:25 06/18/21 20:20 Labs: Laboratory Results - last 24 hr 06/18/21 20:20: WBC 9.6, RBC 4.61, Hgb 12.9, Hct 39.9, MCV 86.6, MCH 28.0, MCHC 32.3, RDW Std Deviation 46.5 H, RDW Coeff of Angelo 14.7 H, Plt Count 364, MPV 9.1, Immature Gran % (Auto) 0.300, Neut % (Auto) 69.8, Lymph % (Auto) 15.4 L, [place] % (Auto) 12.4 H, Eos % (Auto) 1.6, Baso % (Auto) 0.5, Absolute Neuts (auto) 6.7, Absolute Lymphs (auto) 1.48, Nucleated RBC % 0 06/18/21 20:20: Sodium 137, Potassium 3.9, Chloride 102, Carbon Dioxide 30.0, Anion Gap 5, BUN 16, Creatinine 0.88, Estim Creat Clear Calc 41.68, Est GFR (MDRD) Af Amer 81, Est GFR (MDRD) Non-Af 67, BUN/Creatinine Ratio 18.2, Glucose 117 H, Calcium 8.9 06/18/21 20:20: B-Natriuretic Peptide 329.1 H 06/18/21 20:28: PT 20.3 H, INR 1.8 06/18/21 20:28: Troponin I High Sens 6 Micro: Microbiology 06/18/21 21:35 Nasal Secretion SARS-CoV-2 Antigen (Rapid) - Final Assessment & Plan Assessment/Plan (1) Pleural effusion on right: (2) Atrial fibrillation with RVR: (3) Hypoxia: PLAN: The patient is a 75 y/o F w/ PMHx: Chronic COPD, HTN, HLD, GERD, Rheumatoid arthritis, Marfan's syndrome, PAF on coumadin therapy who presents to the [facility] ED on 06/18/21 with history of prior 04/26/2021 admission to the hospital for a large right-sided pleural effusion management with hypoxia with diagnostic and therapeutic right-sided thoracentesis with removal of 1200 cc of fluid and echocardiogram at that time with normal LV size, normal systolic function, EF 55% with moderate mitral annular calcification with unfortunately progressively worsening dyspnea, worse with exertion similar to prior presentation with noted similar complaints with recent cardiology evaluation but it is since been worsening prompting eventual ED evaluation. #1. Paroxsymal atrial fibrillation with RVR: EKG in ED w/ fibrillation w/ RVR. Patient administered Cardizem bolus and transition to Cardizem drip in ED. Will admit to PCU, maintain on telemetry, obtain cardiac enzyme serial set, obtain magnesium level, 04/27/2021 echocardiogram with normal LV size, normal LV systolic function, EF 55%, mild to moderate anteriorly directed MV insufficiency therefore will not repeat given timeline, obtain TSH level. Patient on Coumadin therapy with admission INR 1.8, holding given need for thoracentesis. #2. Acute hypoxia, recurrent secondary to large recurrent right-sided pleural effusion: CXR obtained in the ED w/ recurrent notable R sided large effusion. Patient already on oral Lasix outpatient, will maintain on telemetry monitoring, will continue IV Lasix diuresis pending thoracentesis, currently INR upon presentation 1.8, will continue to trend INR, likely will not be able to have thoracentesis until Monday and per review of records unable to find labs from diagnostic and therapeutic thoracentesis except for reported negative for malignancy from 04/26/2021 admission therefore we need to assure that these labs do get ordered and performed on the fluids. #3. Chronic COPD: Patient not on any routine inhalers, given number 1 will defer immediately adding, will maintain on as needed albuterol, encourage head of bed and I-S, oxygen supplementation as noted with wean to room air once improved likely following thoracentesis. #4. Hypertension: Continue home regimen including IV Lasix as noted above, continue Cardizem drip, transition back to oral atenolol and Cardizem once improving, PRN hydralazine. #5. Hyperlipidemia: Noted statin allergy with complaint of myalgias. #6. Rheumatoid arthritis: Patient per current list not on regimen, encourage continued outpatient follow-up with rheumatology as needed. #7. GERD: We will maintain on home PPI. #8. DVT prophylaxis: SCDs, holding Coumadin, admission INR 1.8. #9. CODE status: Patient does not have healthcare power commercial litigation attorney nor living will in place. Discussed CODE status at length including difference between FULL code, DNR-CCA and DNR-CC status. Following discussions about the differences in these status, requested Full Code status. Advanced Care Planning Face to Face Time: 16 minutes. Charges/Coding Visit Charges Inpatient E&M: 15709 Init Hosp L3 Procedures Hospitalists Procedures: 08490 Advncd Care Plan 30 Min
--- NOTE | 2021-06-18 22:16 | EKG12_ITS ---
Test Reason : SOB Blood Pressure : / mmHG Vent. Rate : 133 BPM Atrial Rate : 129 BPM P-R Int : 000 ms QRS Dur : 074 ms QT Int : 304 ms P-R-T Axes : 000 089 010 degrees QTc Int : 452 ms Atrial fibrillation Low voltage QRS (Limb Leads) Poor R wave progression Nonspecific ST abnormality Abnormal ECG Confirmed by DARNELL MARKS, SNOW ([id number]), graphic editor NIRAV VENTURA ([id number]) on 06/21/2021 11:09:24 AM Referred By: DR MILLS Confirmed By:SNOW PATRICK MD
[2021-06-18] MEDS: dilTIAZem 25 MG/5 ML Vial 10 MG IV BOLUS (22:29)
--- NOTE | 2021-06-18 22:59 | EDS_ITS ---
HPI History of Present Illness Chief Complaint: Shortness of Breath Informant: patient Narrative Narrative: Patient is a 75-year-old female with history of Marfan syndrome, atrial fibrillation (on diltiazem and Coumadin), pulmonary hypertension and prior pleural effusion presenting with increased shortness of breath. Patient had increase shortness of breath for the past few days especially with exertion. She has shortness of breath when she tries to lay flat. She has a mild cough that is productive of clear sputum sometimes. No other complaints at this time. She had an outpatient chest x-ray ordered by her primary care doctor who showed accumulation of fluid on her right lung. Patient says she has similar episode in April where she was admitted and had a thoracentesis done. She is not sure what caused the fluid accumulation. She notes she is on Lasix twice a day. He denies any fever, leg swelling, nausea, vomiting, abdominal pain or urinary symptoms. Denies any sick contacts. [facility] Medical History Chronic anticoagulation COPD (chronic obstructive pulmonary disease) COPD (chronic obstructive pulmonary disease) GERD (gastroesophageal reflux disease) HLD (hyperlipidemia) HTN (hypertension) Hypokalemia Hyponatremia Marfans syndrome PAF (paroxysmal atrial fibrillation) Paroxysmal atrial fibrillation with RVR Pleural effusion PNA (pneumonia) Pulmonary hypertension Rheumatoid arthritis Rheumatoid arthritis Subtherapeutic international normalized ratio (INR) Home Medications omeprazole 40 mg PO DAILY 10/19/14 [History Last Taken 04/26/21] calcium carbonate 600 mg calcium (1,500 mg) tablet 600 mg PO DAILY 06/19/19 [History Last Taken 04/26/21] multivitamin 1 tab PO DAILY 06/19/19 [History Last Taken 04/26/21] furosemide 40 mg tablet 40 mg PO BID tab 11/22/19 [History Last Taken 04/26/21] Handicap placard #1 ea 01/07/20 [Rx Last Taken Unknown] warfarin 4 mg tablet 2 mg PO SUTUTHSA 01/07/20 [History Last Taken 04/25/21] warfarin 4 mg tablet 4 mg PO MOWEFR 01/07/20 [History Last Taken 04/23/21] albuterol sulfate 90 mcg/actuation aerosol inhaler 2 puff INHALATION Q4H PRN g 08/06/20 [History Last Taken 04/26/21] atenolol 100 mg PO DAILY 04/26/21 [History Last Taken 04/26/21] diltiazem HCl 240 mg PO DAILY 04/26/21 [History Last Taken 04/26/21] potassium chloride 20 meq PO BID 04/26/21 [History Last Taken 04/26/21] Allergy/AdvReac Type Severity Reaction Status Date / Time pneumococcal vaccine Allergy Severe Rash Verified 06/18/21 20:10 [From Prevnar 13 (PF)] Latex, Natural Rubber Allergy Rash Verified 06/18/21 20:10 rosuvastatin calcium Allergy myalgias Verified 06/18/21 20:10 [From Crestor] ibuprofen AdvReac Nausea Verified 06/18/21 20:10 Family History Mother Diabetes Colon cancer Marfan syndrome Sister Diabetes Hypertension Brother Marfan syndrome COPD (chronic obstructive pulmonary disease) Brother Marfan syndrome Surgical History History of eye surgery History of hysterectomy Social History Smoking Status: Never smoker alcohol intake: never substance use type: does not use caffeine: Yes Type: coffee Number of servings: 4 ROS ROS ED Constitutional Constitutional ED: Denies chills or fever(s) Eyes Eyes: Denies change in vision ENT ENT ED: Denies rhinorrhea or sore throat Cardiovascular Cardiovascular: Reports orthopnea; Denies chest pain, palpitations or racing heartbeat Respiratory/Chest Respiratory/Chest: Reports cough, dyspnea, dyspnea on exertion, orthopnea and sputum Gastrointestinal Gastrointestinal: Denies abdominal pain, diarrhea, nausea or vomiting Genitourinary Genitourinary ED: Denies dysuria Musculoskeletal Musculoskeletal: Denies arthralgias or myalgias Integumentary Denies rash Neurologic Neurologic: Denies headache(s) or weakness Psychiatric Psychiatric: Denies depression EXAM Physical Exam Const Vital Signs: 06/18/21 20:07 06/18/21 20:50 06/18/21 20:55 Temperature 98.0 F 98.0 F Temperature Source Temporal Temporal Pulse Rate 121 H 121 H Respiratory Rate 20 H 20 H Respiratory Effort Short of Breath Labored Respiratory Depth Shallow Respiratory Pattern Tachypnea Blood Pressure 122/85 H 122/85 H Blood Pressure Mean 97 97 Pulse Ox 90 90 Oxygen Delivery Method Room Air Room Air Room Air Oxygen Flow Rate (L/min) 06/18/21 21:19 06/18/21 22:24 06/18/21 22:30 Temperature 97.6 F L Temperature Source Temporal Pulse Rate 140 H 131 H 110 H Respiratory Rate 22 H 24 H 25 H Respiratory Effort Respiratory Depth Respiratory Pattern Blood Pressure 107/95 H 121/87 H 121/87 H Blood Pressure Mean 99 98 98 Pulse Ox 95 97 96 Oxygen Delivery Method Nasal Cannula Nasal Cannula Oxygen Flow Rate (L/min) 3 2 2 06/18/21 22:35 Temperature 97.8 F Temperature Source Temporal Pulse Rate 105 H Respiratory Rate 25 H Respiratory Effort Respiratory Depth Respiratory Pattern Blood Pressure 126/82 H Blood Pressure Mean 96 Pulse Ox 94 Oxygen Delivery Method Non-Rebreather Oxygen Flow Rate (L/min) 2 Positive well nourished and well developed General Appearance ED: well developed HEENT Reports moist mucous membranes atraumatic Eyes PERRL and EOMs intact bilaterally Neck supple, no meningeal signs and no JVD Resp normal respiratory effort and clear to auscultation bilaterally Cardio no murmurs Rate: tachycardic Rhythm: abnormal rhythm irregularly irregular GI non-tender and non-distended Palpation: soft Back/Spine normal to inspection Extremity normal to inspection General Extremety ED: Negative for edema or tenderness General Extremity: Negative for edema Neuro oriented x3 and no sensory deficits noted Sensorium / Orientation: alert Motor Exam: strength 5/5 throughout Psych mental status grossly normal Skin Lesions: no lesions Rashes: no rashes MDM MDM MDM Narrative Medical decision making narrative: Patient evaluated for abnormal outpatient chest x-ray in the setting of increased dyspnea on exertion and cough. Patient appears to have a recurrent right large pleural effusion. She is mildly hypoxic requiring supplemental oxygen. Despite taking her Cardizem today patient is currently in atrial fibrillation with RVR. She is started on a Cardizem drip for rate control. She is mildly subtherapeutic without INR of 1.8. No signs of heart strain on EKG or with high-sensitivity troponin. Given her heart rates and hypoxia patient will require admission for her pleural effusion. She is agreeable this plan of care. She is hemodynamically stable. COVID test is negative. Lab Data Labs: Laboratory Results - last 24 hr 06/18/21 06/18/21 06/18/21 20:20 20:20 20:20 WBC 9.6 RBC 4.61 Hgb 12.9 Hct 39.9 MCV 86.6 MCH 28.0 MCHC 32.3 RDW Std Deviation 46.5 H RDW Coeff of Angelo 14.7 H Plt Count 364 MPV 9.1 Immature Gran % (Auto) 0.300 Neut % (Auto) 69.8 Lymph % (Auto) 15.4 L [place] % (Auto) 12.4 H Eos % (Auto) 1.6 Baso % (Auto) 0.5 Absolute Neuts (auto) 6.7 Absolute Lymphs (auto) 1.48 Nucleated RBC % 0 PT INR Sodium 137 Potassium 3.9 Chloride 102 Carbon Dioxide 30.0 Anion Gap 5 BUN 16 Creatinine 0.88 Estim Creat Clear Calc 41.68 Est GFR (MDRD) Af Amer 81 Est GFR (MDRD) Non-Af 67 BUN/Creatinine Ratio 18.2 Glucose 117 H Calcium 8.9 Troponin I High Sens B-Natriuretic Peptide 329.1 H 06/18/21 06/18/21 20:28 20:28 WBC RBC Hgb Hct MCV MCH MCHC RDW Std Deviation RDW Coeff of Angelo Plt Count MPV Immature Gran % (Auto) Neut % (Auto) Lymph % (Auto) [place] % (Auto) Eos % (Auto) Baso % (Auto) Absolute Neuts (auto) Absolute Lymphs (auto) Nucleated RBC % PT 20.3 H INR 1.8 Sodium Potassium Chloride Carbon Dioxide Anion Gap BUN Creatinine Estim Creat Clear Calc Est GFR (MDRD) Af Amer Est GFR (MDRD) Non-Af BUN/Creatinine Ratio Glucose Calcium Troponin I High Sens 6 B-Natriuretic Peptide Radiography Chest X-Ray - ED: 1 View, Read by ED Physician, Read by Radiologist and Right Effusion Diagnostic Testing: Clinical Impression(s) from Imaging Studies Chest X-Ray 06/18/21 21:40 IMPRESSION: Moderately large right pleural effusion increased and mild congestion Electronically Signed: Landon Ibrahim MD at 22:17 EST , Service support , Rhythm Strip Rhythm Strip: A-fib Rate: 133 Ectopy: None EKG Initial EKG: Attestation: I personally reviewed and interpreted this EKG as follows: Interpretation: Atrial Fibrillation Comments: Atrial fibrillation with RVR at a rate of [address] segments Normal QRS and normal QTC Critical Care Time Critical Care Time: Yes Critical care time (excluding procedures): 30-74 minutes (32), Including time spent: (Patient has a potentially unstable rhythm-atrial fibrillation with RVR requiring IV Cardizem with bolus and drip for rate control ), Discussing w/Patient &/or Family/Project Financial Analyst and Arranging Admission or Transfer Discharge Plan Triage Chief Complaint: Shortness of Breath ED Provider: Deidra Panchal Dx/Rx/DC Orders Clinical Impression: Pleural effusion on right, Atrial fibrillation with RVR, Hypoxia Prescriptions: No Action multivitamin Tablet 1 tab PO DAILY RF: 0 calcium carbonate 600 mg calcium (1,500 mg) tablet 600 mg PO DAILY RF: 0 furosemide 40 mg tablet 40 mg PO BID RF: 0 (DME) Handicap placard Qty: 1 RF: 0 albuterol sulfate 90 mcg/actuation HFA aerosol inhaler 2 puff INHALATION Q4H PRN (Reason: SOB) RF: 0 omeprazole 40 MG capsule 40 mg PO DAILY RF: 0 warfarin 4 mg tablet 4 mg PO MOWEFR RF: 0 warfarin 4 mg tablet 2 mg PO SUTUTHSA RF: 0 potassium chloride 20 mEq tablet,ER particles/crystals 20 meq PO BID RF: 0 atenolol 100 mg tablet 100 mg PO DAILY RF: 0 diltiazem HCl 240 mg capsule,extended release 24hr 240 mg PO DAILY RF: 0 Primary Care Provider: Wes Magallon Referrals: Wes Magallon MD [Primary Care Provider] -
[2021-06-18 23:13] LABS: ALB/GLOB Ratio 0.8 RATIO (0.9-2.4); Globulin 4.4 g/dL (2.2-4.2); LDH 188 U/L (84-246); Magnesium 2.3 mg/dL (1.6-2.6)
[2021-06-19] VITALS (40 sets, daily range): BP systolic 90–118; BP diastolic 51–80; PULSE 74–122; RESP 16–29; TEMP 36.7–37; O2SAT 89–98; BMI 25.0
[2021-06-19] MEDS: Furosemide 40 MG/4 ML Vial IV ×3 (01:00→18:26)
[2021-06-19] MEDS: 0.9% Saline Lock 10 ML Syringe IV ×3 (01:01→23:50)
--- NOTE | 2021-06-19 01:19 | PCS.PANDOC ---
PANDEMIC DOCUMENTATION INITIATED: Date: 01/18/2021 Time: 190
[2021-06-19 03:49] LABS: Absolute Lymphocyte Count 1.84 X10^3/uL (0.83-4.51); Absolute Neutrophil Count 5.6 X10^3/uL (2.0-7.7); Basophil# 0.07 X10^3/uL; Basophil% 0.8 % (0-1); Eosinophil# 0.13 X10^3/uL; Eosinophils% 1.5 % (0-5); Hematocrit 38.1 % (37-47); Hemoglobin 12.2 g/dL (12.0-15.0); Lymphocyte # 1.84 X10^3/ul (0.83-4.51); Lymphocyte % 21.1 % (19-41); Mean Corpuscular Hgb 27.5 pg (27.0-32.0); Mean Corpuscular Volume 85.8 fL (81-99); Mean Platelet Vol. 8.9 fl (6.2-12.0); Monocyte# 1.11 X10^3/uL; Monocyte% 12.7 % (0-10); NRBC Flagged by Analyzer 0 % (0-5); Neutrophil # 5.57 X10^3/uL (2.7-7.7); Neutrophil % 63.7 % (47-70); Platelet Count 337 K/mm3 (150-450); RBC Distribution Width CV 14.5 % (11.6-14.6); RBC Distribution Width SD 45.7 fl (35.1-43.9); Red Blood Count 4.44 M/mm3 (4.2-5.4); White Blood Count 8.7 K/mm3 (4.4-11.0)
[2021-06-19 03:58] LABS: International Normalized Ratio 1.9; Prothrombin Time (Protime)PT. 20.9 SECONDS (11.7-14.9)
[2021-06-19 04:12] LABS: Troponin-I HS 6 pg/mL (3.0-54.0)
[2021-06-19 04:29] LABS: ALB/GLOB Ratio 0.8 RATIO (0.9-2.4); AST(SGOT) 13 U/L (15-37); Alanine Aminotransfer ALT/SGPT 22 U/L (13-56); Albumin, Serum 3.4 g/dL (3.2-5.0); Alkaline Phosphatase 118 U/L (45-117); Anion Gap 8 (5-15); BUN 13 mg/dL (7-18); BUN/Creat Ratio 17.7 RATIO (10-20); Calcium,Total 8.2 mg/dL (8.5-10.1); Chloride 100 mmol/L (98-107); Creatinine, Serum 0.74 mg/dL (0.55-1.02); EST Glomerular Filtration Rate 82 mL/min (>60); Est Glom Filt Rate - Afr Amer 99 mL/min (>60); Estimated Creatinine Clearance 36.68 ml/min; Globulin 4.1 g/dL (2.2-4.2); Glucose 147 mg/dL (74-106); Potassium 3.1 mmol/L (3.5-5.1); Protein, Total 7.5 g/dL (6.4-8.2); Sodium Level 138 mmol/L (136-145)
[2021-06-19] MEDS: Atenolol 50 MG Tablet PO (09:49)
[2021-06-19] MEDS: Pantoprazole Sodium 40 MG Tablet PO (09:49)
[2021-06-19] MEDS: Potassium Chloride Oral Tablet 20 MEQ PO ×2 (09:49→22:18)
--- NOTE | 2021-06-19 13:40 | CASEMGMT ---
PEYTON TONY Assessment: Face to Face with patient for initial transition planning/care coordination assessment. PEYTON TONY introduced self and role at [facility], pt voices understanding and consents to assessment. Pt is sitting up in bed in no distress on 2L nc. Pt is A/Ox4 and answers all questions appropriately. Pt to have thoracentesis on 06/21/21. Care providers, pharmacy, and demographics verified. Presentation: Pt c/o SOB with CXR with fluid on right lung Admitting dx: Hypoxia, Right pleural effusion PCP: Sherita Specialists: Corina, cardio; Jerry pulmyah Preferred Pharmacy: [facility] [place] mail order Insurance: [employer] Prescription Benefit: Yes Living Will/HPOA: Pt does not have LW/HPOA and declines AD info. LNOK: Elle Fishman, daughter; Airam Beck, daughter Living Arrangements: Pt lives with , 2 sons, and daughter in home with laundry in basement and states no concerns at home. Pt is independent with ADL's. Transportation: Pt states /kids drive and states no transportation concerns. DME/HHC: Pt states has a cane and tub bench and states no need for any further DME. Pt states no hx of HHC or SNF. Pt states no concerns with going home at time of discharge. Pt is retired. Pt states does not smoke cigarettes or drink ETOH. Pt states no further concerns/needs. CM to follow for any further discharge planning/needs. Advised pt to ask for CM if any further questions/concerns/needs arise, voices understanding. Pt Goal: Home Plan: [place] TONY
--- NOTE | 2021-06-19 15:26 | PN.HOSP_ITS ---
Subjective Subjective Patient was seen and examined today, I restarted her atenolol and this afternoon I was able to stop her IV Cardizem drip. Patient was admitted yesterday for atrial fibrillation RVR and acute hypoxic respiratory failure, patient is currently on 2 L via nasal cannula, she has a large right pleural effusion which will need removal by ultrasound-guided thoracentesis on Monday. Objective Data Objective Data Vital Signs: Vital Signs Temp Pulse Resp BP Pulse Ox 98.6 F 93 20 H 100/60 94 06/19/21 12:00 06/19/21 15:00 06/19/21 13:00 06/19/21 13:00 06/19/21 13:00 Oxygen Flow Rate (L/min) 2 Oxygen Delivery Method Nasal Cannula Weight: 60.1 kg Body Mass Index (BMI) 25.0 Intake & Output: Intake and Output for Last 24 Hours 06/17/21 06/18/21 06/19/21 23:59 23:59 23:59 Intake Total 6.75 / 6.75 404.91 / 404.91 Balance 6.75 / 6.75 404.91 / 404.91 Lab / Micro Data Result Diagrams: 06/19/21 03:25 06/19/21 03:25 Labs: Laboratory Results - last 24 hr 06/18/21 20:20: WBC 9.6, RBC 4.61, Hgb 12.9, Hct 39.9, MCV 86.6, MCH 28.0, MCHC 32.3, RDW Std Deviation 46.5 H, RDW Coeff of Angelo 14.7 H, Plt Count 364, MPV 9.1, Immature Gran % (Auto) 0.300, Neut % (Auto) 69.8, Lymph % (Auto) 15.4 L, Sebastian % (Auto) 12.4 H, Eos % (Auto) 1.6, Baso % (Auto) 0.5, Absolute Neuts (auto) 6.7, Absolute Lymphs (auto) 1.48, Nucleated RBC % 0 06/18/21 20:20: Sodium 137, Potassium 3.9, Chloride 102, Carbon Dioxide 30.0, Anion Gap 5, BUN 16, Creatinine 0.88, Estim Creat Clear Calc 41.68, Est GFR (MDRD) Af Amer 81, Est GFR (MDRD) Non-Af 67, BUN/Creatinine Ratio 18.2, Glucose 117 H, Calcium 8.9 06/18/21 20:20: B-Natriuretic Peptide 329.1 H 06/18/21 20:28: PT 20.3 H, INR 1.8 06/18/21 20:28: Troponin I High Sens 6 06/18/21 20:28: Magnesium 2.3, Lactate Dehydrogenase 188, Total Protein 8.0, Globulin 4.4 H, Albumin/Globulin Ratio 0.8 L 06/19/21 03:25: WBC 8.7, RBC 4.44, Hgb 12.2, Hct 38.1, MCV 85.8, MCH 27.5, MCHC 32.0, RDW Std Deviation 45.7 H, RDW Coeff of Angelo 14.5, Plt Count 337, MPV 8.9, Immature Gran % (Auto) 0.200, Neut % (Auto) 63.7, Lymph % (Auto) 21.1, Sebastian % (Auto) 12.7 H, Eos % (Auto) 1.5, Baso % (Auto) 0.8, Absolute Neuts (auto) 5.6, Absolute Lymphs (auto) 1.84, Nucleated RBC % 0 06/19/21 03:25: PT 20.9 H, INR 1.9 06/19/21 03:25: Sodium 138, Potassium 3.1 L, Chloride 100, Carbon Dioxide 30.0, Anion Gap 8, BUN 13, Creatinine 0.74, Estim Creat Clear Calc 36.68, Est GFR (MDRD) Af Amer 99, Est GFR (MDRD) Non-Af 82, BUN/Creatinine Ratio 17.7, Glucose 147 H, Calcium 8.2 L, Total Bilirubin 0.50, AST 13 L, ALT 22, Alkaline Phosphatase 118 H, Total Protein 7.5, Albumin 3.4, Globulin 4.1, Albumin/Globulin Ratio 0.8 L, TSH 1.50 06/19/21 03:25: Troponin I High Sens 6 Micro: Microbiology 06/18/21 21:35 Nasal Secretion SARS-CoV-2 Antigen (Rapid) - Final Radiography Diagnostic Testing: Radiology Impression Chest X-Ray 06/18/21 21:40 IMPRESSION: Moderately large right pleural effusion increased and mild congestion Electronically Signed: Landon Ibrahim MD at 22:17 EST , Service support , Rhythm Strip Rhythm Strip: A-fib Rate: 133 Ectopy: None Physical Exam Const alert, oriented x3, no apparent distress and healthy appearing General Appearance: cooperative, well kempt and well developed Orientation / Consciousness: awake, oriented to person, oriented to place and oriented to time HEENT normocephalic, head/scalp atraumatic and moist oral mucous membranes Head and Scalp: normocephalic Eyes PERRL, EOMs intact bilaterally and conjunctivae normal Neck nuchal rigidity, supple, no JVD and thyroid normal General: trachea midline Resp normal respiratory effort, no retractions and no use of accessory muscles Resp Narrative: Decreased breath sounds are noted over the right lung flores Auscultation: Negative for rales, rhonchi or wheezes Cardio no murmurs, no rub and no gallops Cardio Narrative: Heart rate and rhythm is irregular GI normal to inspection, nondistended, normoactive bowel sounds, soft to palpation, non-tender and non-distended Extremity no clubbing, cyanosis or edema Skin no rashes or lesions noted General Skin Exam: no breakdown Neuro oriented x3, CN's II-XII intact bilaterally, no focal motor deficits and no sensory deficits noted Sensorium / Orientation: awake and alert Speech: speech normal Psych thought process normal and affect normal Assessment & Plan Assessment/Plan (1) Pleural effusion on right: PLAN: 1. Acute hypoxic respiratory failure-patient is currently on 2 L of nasal cannula O2, pulse ox will be monitored #2 right pleural effusion-etiology unclear, it is not apparent in the medical record here that her last thoracentesis fluid was analyzed at this hospital. She will need a repeat thoracentesis on Monday #3 paroxysmal atrial fibrillation with rapid ventricular response-patient's pulse rate is into the 80s at the time of this dictation, I have decided to stop her Cardizem drip #4 chronic obstructive pulmonary disease-patient will continue on albuterol aerosols as needed #5 mild pulmonary hypertension-patient is currently on furosemide #6 essential hypertension-patient is now on atenolol and IV Lasix #7 acute on chronic diastolic congestive heart failure-patient is on IV Lasix currently Charges/Coding Visit Charges Inpatient E&M: 07184 Subs Hosp L2
--- NOTE | 2021-06-19 16:54 | CPS ---
started by nursing
[2021-06-19] MEDS: dilTIAZem 25 MG/5 ML Vial 10 MG IV BOLUS (23:45)
[2021-06-20] VITALS (12 sets, daily range): BP systolic 96–127; BP diastolic 72–92; PULSE 91–133; RESP 16–18; TEMP 36.2–36.9; O2SAT 93–96
[2021-06-20] MEDS: Atenolol 100 MG Tablet PO ×2 (08:45→08:46)
[2021-06-20] MEDS: Pantoprazole Sodium 40 MG Tablet PO (08:46)
[2021-06-20] MEDS: Potassium Chloride Oral Tablet 20 MEQ PO ×2 (08:46→21:54)
[2021-06-20] MEDS: Furosemide 40 MG/4 ML Vial IV ×2 (10:00→18:36)
[2021-06-20] MEDS: Digoxin 250 MCG/ML Ampul 500 MCG IV (10:00)
[2021-06-20] MEDS: 0.9% Saline Lock 10 ML Syringe IV ×2 (10:11→18:36)
--- NOTE | 2021-06-20 11:29 | PCM.PN.HOSP ---
Subjective Subjective Patient was seen and examined today, her pulse rate has increased, I have decided to increase her metoprolol to 100 mg daily which is what she takes at home. I have also given her 1 single dose of IV digoxin. Patient is currently on 3 L of oxygen via nasal cannula. Objective Data Objective Data Vital Signs: Vital Signs Temp Pulse Resp BP Pulse Ox 98.4 F 108 H 16 113/83 H 95 06/20/21 10:00 06/20/21 10:57 06/20/21 10:00 06/20/21 10:00 06/20/21 10:00 Oxygen Flow Rate (L/min) 3 Oxygen Delivery Method Nasal Cannula Weight: 60 kg Body Mass Index (BMI) 25.0 Intake & Output: Intake and Output for Last 24 Hours 06/18/21 06/19/21 06/20/21 23:59 23:59 23:59 Intake Total 6.75 / 6.75 524.91 / 524.91 Balance 6.75 / 6.75 524.91 / 524.91 Lab / Micro Data Result Diagrams: 06/19/21 03:25 06/19/21 03:25 Micro: Microbiology 06/19/21 20:35 Interface Orders Streptococcus pneumoniae Antigen (M - Final 06/19/21 20:35 Interface Orders Legionella Antigen - Final 06/18/21 21:35 Nasal Secretion SARS-CoV-2 Antigen (Rapid) - Final Rhythm Strip Rhythm Strip: A-fib Rate: 133 Ectopy: None Physical Exam Narrative alert, oriented x3, no apparent distress and healthy appearing General Appearance: cooperative, well kempt and well developed Orientation / Consciousness: awake, oriented to person, oriented to place and oriented to time HEENT normocephalic, head/scalp atraumatic and moist oral mucous membranes Head and Scalp: normocephalic Eyes PERRL, EOMs intact bilaterally and conjunctivae normal Neck nuchal rigidity, supple, no JVD and thyroid normal General: trachea midline Resp normal respiratory effort, no retractions and no use of accessory muscles Resp Narrative: Decreased breath sounds are noted over the right lung flores Auscultation: Negative for rales, rhonchi or wheezes Cardio no murmurs, no rub and no gallops Cardio Narrative: Heart rate and rhythm is irregular GI normal to inspection, nondistended, normoactive bowel sounds, soft to palpation, non-tender and non-distended Extremity no clubbing, cyanosis or edema Skin no rashes or lesions noted General Skin Exam: no breakdown Neuro oriented x3, CN's II-XII intact bilaterally, no focal motor deficits and no sensory deficits noted Sensorium / Orientation: awake and alert Speech: speech normal Psych thought process normal and affect normal Assessment & Plan Assessment/Plan (1) Pleural effusion on right: PLAN: 1. Acute hypoxic respiratory failure-patient is currently on 3 L of nasal cannula O2, pulse ox will be monitored #2 right pleural effusion-etiology unclear, it is not apparent in the medical record here that her last thoracentesis fluid was analyzed at this hospital. She will need a repeat thoracentesis on Monday #3 paroxysmal atrial fibrillation with rapid ventricular response-patient's pulse rate is into the 80s at the time of this dictation, I have decided to stop her Cardizem drip #4 chronic obstructive pulmonary disease-patient will continue on albuterol aerosols as needed #5 mild pulmonary hypertension-patient is currently on furosemide #6 essential hypertension-patient is now on atenolol and IV Lasix #7 acute on chronic diastolic congestive heart failure-patient is on IV Lasix currently Charges/Coding Visit Charges Inpatient E&M: 44546 Subs Hosp L2
[2021-06-21] VITALS (13 sets, daily range): BP systolic 100–119; BP diastolic 69–87; PULSE 96–128; RESP 16–20; TEMP 36.2–36.9; O2SAT 94–97; BMI 25.0
[2021-06-21 06:00] LABS: International Normalized Ratio 1.3; Prothrombin Time (Protime)PT. 15.2 SECONDS (11.7-14.9)
[2021-06-21 06:04] LABS: ALB/GLOB Ratio 0.7 RATIO (0.9-2.4); Globulin 4.3 g/dL (2.2-4.2); LDH 171 U/L (84-246); Protein, Total 7.4 g/dL (6.4-8.2)
[2021-06-21] MEDS: Atenolol 100 MG Tablet PO (08:58)
[2021-06-21] MEDS: Pantoprazole Sodium 40 MG Tablet PO (08:58)
[2021-06-21] MEDS: Furosemide 40 MG/4 ML Vial IV ×2 (08:58→17:07)
[2021-06-21] MEDS: Potassium Chloride Oral Tablet 20 MEQ PO ×2 (09:02→21:36)
--- NOTE | 2021-06-21 16:35 | CHAPLAIN ---
Type of Pastoral Visit _x__ Initial Visit ___ Follow-up Visit ___ On-call Visit ___ General Patient Visit ___ Spiritual Assessment ___ Family Conference ___ Bereavement ___ Rapid Response ___ Code Blue ___ Other (describe below) Pastoral Care Referral From _x__ Patient ___ Family ___ Nurse ___ Physician ___ Small Business Director ___ Support Teacher ___ Other (describe below) Sacrament/Intervention _x__ Active listening ___ Anointing ___ Rastafari ___ Bereavement ___ Communion _x__ Citlaly exploration ___ ___ Life review _x__ Prayer ___ Reconciliation ___ Sacrament of Sick _x__ Supportive presence ___ Wedding ___ Other (describe below) Pastoral Comments
--- NOTE | 2021-06-21 16:59 | PCM.PN.HOSP ---
Subjective Subjective Feels well. Objective Data Objective Data Vital Signs: Vital Signs Temp Pulse Resp BP Pulse Ox 36.4 C L 115 H 20 H 116/83 H 97 06/21/21 16:46 06/21/21 16:46 06/21/21 16:46 06/21/21 16:46 06/21/21 16:46 Oxygen Flow Rate (L/min) 2 Oxygen Delivery Method Nasal Cannula Weight: 59.3 kg Body Mass Index (BMI) 25.0 Intake & Output: Intake and Output for Last 24 Hours 06/19/21 06/20/21 06/21/21 23:59 23:59 23:59 Intake Total 524.91 / 524.91 360 / 360 480 / 480 Balance 524.91 / 524.91 360 / 360 480 / 480 Lab / Micro Data Result Diagrams: 06/19/21 03:25 06/19/21 03:25 Labs: Laboratory Results - last 24 hr 06/21/21 04:52: Lactate Dehydrogenase 171, Total Protein 7.4, Globulin 4.3 H, Albumin/Globulin Ratio 0.7 L 06/21/21 04:52: PT 15.2 H, INR 1.3 Micro: Microbiology 06/19/21 20:35 Interface Orders Streptococcus pneumoniae Antigen (M - Final 06/19/21 20:35 Interface Orders Legionella Antigen - Final 06/18/21 21:35 Nasal Secretion SARS-CoV-2 Antigen (Rapid) - Final Rhythm Strip Rhythm Strip: A-fib Rate: 133 Ectopy: None Physical Exam Const alert Resp normal respiratory effort, no retractions, no use of accessory muscles and clear to auscultation bilaterally Cardio regular rate, regular rhythm, S1 normal heart sound and S2 normal heart sound GI normal to inspection, nondistended, normoactive bowel sounds, soft to palpation, non-tender and non-distended Assessment & Plan Assessment/Plan (1) Pleural effusion on right: PLAN: 1. Acute hypoxic respiratory failure-patient is currently on 3 L of nasal cannula O2, pulse ox will be monitored 2 right pleural effusion-etiology unclear, it is not apparent in the medical record here that her last thoracentesis fluid was analyzed at this hospital. Thoracentesis pending. 3 paroxysmal atrial fibrillation with rapid ventricular response. switch atenolol to metoprolol tartrate as still tachycardic 4. chronic obstructive pulmonary disease-patient will continue on albuterol aerosols as needed 5. mild pulmonary hypertension-patient is currently on furosemide 6. essential hypertension-patient is now on atenolol and IV Lasix 7. acute on chronic diastolic congestive heart failure-patient is on IV Lasix currently 8. VTE prophylaxis: SCDs Charges/Coding Visit Charges Inpatient E&M: 84829 Subs Hosp L2
[2021-06-21] MEDS: 0.9% Saline Lock 10 ML Syringe IV (17:07)
[2021-06-21] MEDS: Metoprolol Tartrate 50 MG Tablet PO (19:06)
[2021-06-22] VITALS (17 sets, daily range): BP systolic 95–122; BP diastolic 54–80; PULSE 97–130; RESP 16–20; TEMP 2.9–37.2; O2SAT 91–98; BMI 24.7
--- NOTE | 2021-06-22 | FLU_PTH ---
PATIENT: NIMISHA CEJA LOC: [facility] U#:[id number] AGE/SX: 75/F ROOM: [facility] RE06/18/[address]: Dr. Oj Lorenzo DO : 1945 BED: 1 DIS: 06/23/2021 SPEC #: [id number] RECD: 06/23/21 08:49 STATUS: SOUT REQ #: [id number] FELICIA: 06/22/21 00:[address]: Nany Pinon DEPT: CYTOLOGY RECD BY: Mignon Huizar ENTERED: 06/23/21 08:49 SP TYPE: Fluid OTHR DR: MD Dr. Oj Natarajan DO Dr. William Lago, MD Tissues: THORACIC FLUID Procedures: Special Stain Group II Surgery Specimen Level IV Cytospin Fluid Comments: @ Ordering doctor for SSII edited from to DR.AWHITE Hazel by JOSE at 06/23/21 1450 @ Ordering doctor for SUIV edited from to DR.AWHITE Hazel by JOSE at 06/23/21 1450 @ Ordering doctor for CYSPIN edited from to DR.AWHITE Hazel by JOSE at 06/23/21 1450 @ Submitting doctor edited from to DR.AWHITE Hazel by JOSE at 06/23/21 1450 HEADER OPERATION: Ultrasound-guided right thoracentesis PRE-OP DIAGNOSIS: Right pleural effusion TISSUE SUBMITTED: Thoracentesis fluid for cytology DIAGNOSIS CYTOLOGY Thoracentesis fluid for cytology (cytospin and cell block): Negative for malignant cells. See comment. Wally 06/24/2021 COMMENT Clinical correlation and appropriate follow up are necessary. CYTOLOGY STUDY Slides are reviewed. CYTOLOGY GROSS Received is 90 ml of broderick, cloudy fluid labeled with the patient's name and and designated per the requisition as thoracentesis. Submitted for cytology preparation including cell block. / rosana 06/23/2021 TC:5 CPT: 96064, 13501
[2021-06-22 05:36] LABS: International Normalized Ratio 1.3; Prothrombin Time (Protime)PT. 15.8 SECONDS (11.7-14.9)
[2021-06-22 05:51] LABS: Anion Gap 6 (5-15); BUN 21 mg/dL (7-18); BUN/Creat Ratio 34.3 RATIO (10-20); Calcium,Total 8.7 mg/dL (8.5-10.1); Chloride 98 mmol/L (98-107); Creatinine, Serum 0.61 mg/dL (0.55-1.02); EST Glomerular Filtration Rate 101 mL/min (>60); Est Glom Filt Rate - Afr Amer 122 mL/min (>60); Estimated Creatinine Clearance 36.68 ml/min; Glucose 82 mg/dL (74-106); Sodium Level 136 mmol/L (136-145)
--- NOTE | 2021-06-22 08:00 | US_ITS ---
PROCEDURE: ULTRASOUND GUIDED THORACENTESIS. DATE: 06/22/2021. INDICATION: Female, 75 years old. Right pleural effusion. PHYSICIAN: Shashi Jacobo M.D. PROCEDURE: The risks, benefits, and alternatives to the procedure were explained to the patient. The specific risks of bleeding, infection, and pneumothorax requiring chest tube insertion were discussed and accepted. Written informed consent was obtained. Ultrasonographic evaluation of the right lower pleural space was carried out. An adequate pocket was identified. The patient was placed in the sitting, upright position. The overlying skin was prepped and draped in sterile fashion. 1% lidocaine was administered subcutaneously for local anesthesia. Under ultrasound guidance, a 5 Cypriot thoracentesis needle/catheter system was advanced into the right posterior lower pleural fluid collection. Approximately 770 mL of cloudy broderick-colored fluid was drained. The catheter was removed, and a sterile dressing was applied. A specimen was collected and sent to the laboratory for analysis, as requested by the referring clinician. The patient tolerated the procedure well. A chest x-ray was ordered. US/Thoracentesis W US IMPRESSION: Ultrasound-guided right thoracentesis. Electronically Signed: Shashi Jacobo MD at 14:14 EST , Service support ,
[2021-06-22] MEDS: Pantoprazole Sodium 40 MG Tablet PO (09:19)
[2021-06-22] MEDS: Potassium Chloride Oral Tablet 20 MEQ PO ×2 (09:19→21:10)
[2021-06-22] MEDS: Furosemide 40 MG/4 ML Vial IV (09:19)
[2021-06-22] MEDS: 0.9% Saline Lock 10 ML Syringe IV (09:32)
[2021-06-22] MEDS: Metoprolol Tartrate 50 MG Tablet PO ×2 (09:32→21:10)
[2021-06-22] MEDS: dilTIAZem CD 240 MG Capsule PO (11:16)
--- NOTE | 2021-06-22 13:40 | RAD_ITS ---
STUDY: X-RAY CHEST REASON FOR EXAM: Female, 75 years old. pneumothorax TECHNIQUE: Single AP portable view of the chest. COMPARISON: 06/18/2009 FINDINGS: The lungs are clear and expanded. Small right pleural effusion. No pneumothorax. There is moderate cardiac enlargement. Normal mediastinum and claudia. Normal visualized pulmonary arteries. Normal visualized aortic arch and descending thoracic aorta. Normal visualized thoracic spine. Normal visualized ribs, clavicles, and shoulders. There is no demonstrated abnormality of the visualized soft tissue structures of the upper abdomen. RAD/Chest Insp/Exp 2 View IMPRESSION: Small right pleural effusion. No pneumothorax Electronically Signed: Senthil Ye MD at 16:27 EST Tel , Service support ,
--- NOTE | 2021-06-22 13:52 | PCM.PN.HOSP ---
Subjective Subjective No new events. Objective Data Objective Data Vital Signs: Vital Signs Temp Pulse Resp BP Pulse Ox 36.7 C 112 H 18 111/80 96 06/22/21 09:16 06/22/21 11:16 06/22/21 09:16 06/22/21 09:16 06/22/21 09:16 Oxygen Flow Rate (L/min) 2 Oxygen Delivery Method Nasal Cannula Weight: 60.8 kg Body Mass Index (BMI) 24.7 Intake & Output: Intake and Output for Last 24 Hours 06/20/21 06/21/21 06/22/21 23:59 23:59 23:59 Intake Total 360 / 360 980 / 980 360 / 360 Balance 360 / 360 980 / 980 360 / 360 Lab / Micro Data Result Diagrams: 06/19/21 03:25 06/22/21 04:52 Labs: Laboratory Results - last 24 hr 06/22/21 04:52: Sodium 136, Potassium 4.0, Chloride 98, Carbon Dioxide 32.0, Anion Gap 6, BUN 21 H, Creatinine 0.61, Estim Creat Clear Calc 36.68, Est GFR (MDRD) Af Amer 122, Est GFR (MDRD) Non-Af 101, BUN/Creatinine Ratio 34.3 H, Glucose 82, Calcium 8.7 06/22/21 04:52: PT 15.8 H, INR 1.3 Micro: Microbiology 06/19/21 20:35 Interface Orders Streptococcus pneumoniae Antigen (M - Final 06/19/21 20:35 Interface Orders Legionella Antigen - Final 06/18/21 21:35 Nasal Secretion SARS-CoV-2 Antigen (Rapid) - Final Rhythm Strip Rhythm Strip: A-fib Rate: 133 Ectopy: None Physical Exam Const alert Resp normal respiratory effort and no retractions Resp Narrative: diminished in RLL with DTP Cardio regular rate, regular rhythm, S1 normal heart sound and S2 normal heart sound GI normal to inspection, nondistended, normoactive bowel sounds, soft to palpation, non-tender and non-distended Assessment & Plan Assessment/Plan (1) Pleural effusion on right: PLAN: 1. Acute hypoxic respiratory failure-patient is currently on 3 L of nasal cannula O2, pulse ox will be monitored 2 right pleural effusion-etiology unclear, it is not apparent in the medical record here that her last thoracentesis fluid was analyzed at this hospital. Thoracentesis pending. 3 paroxysmal atrial fibrillation with rapid ventricular response. switch atenolol to metoprolol tartrate as still tachycardic resume diltiazem 4. chronic obstructive pulmonary disease-patient will continue on albuterol aerosols as needed 5. mild pulmonary hypertension-patient is currently on furosemide 6. essential hypertension-patient is now on atenolol and IV Lasix 7. acute on chronic diastolic congestive heart failure-patient is on IV Lasix currently 8. VTE prophylaxis: SCDs Charges/Coding Visit Charges Inpatient E&M: 53241 Subs Hosp L2
[2021-06-22 13:53] LABS: Cytology, Body Fluid / CSF SEE PATHOLOGY REPORT
[2021-06-22 14:13] LABS: Body Fluid Mononuclear WBC # 0.635 10^3/uL; Body Fluid Total Cells Counted 0.786 10^3/ul; White Blood Count/Body Fluid 0.655 10^3/uL
[2021-06-22 14:16] LABS: Appearance/Body Fluid TURBID; Auto B Fluid Analyzer BKGD Ct COUNTS W/IN LIMITS (W/IN LIMITS); Color/Body Fluid YELLOW; Source- Body Fluid THORACENTESIS
[2021-06-22 14:33] LABS: Glucose, Body Fluid 137 mg/dL (40-70)
[2021-06-22 14:39] LABS: Lymphocytes 69 %; Macrophages 27 %; Neutrophil (Segs) 2 %; Other Cell Type/BF 2 %
[2021-06-22 14:41] LABS: Protein, Body Fluid 4.3 g/dL (Not Establ.)
[2021-06-22 14:42] LABS: Body Fluid QC Type(s) BF1Q; LDH,Body Fluid 84 Units/l (Not Establ.)
[2021-06-23] VITALS (9 sets, daily range): BP systolic 100–104; BP diastolic 69; PULSE 82–116; RESP 18–20; TEMP 36.3–36.8; O2SAT 90–99
[2021-06-23] MEDS: dilTIAZem CD 240 MG Capsule PO (08:18)
[2021-06-23] MEDS: Metoprolol Tartrate 50 MG Tablet PO (08:18)
[2021-06-23] MEDS: Pantoprazole Sodium 40 MG Tablet PO (08:18)
[2021-06-23] MEDS: Potassium Chloride Oral Tablet 20 MEQ PO (08:18)
--- NOTE | 2021-06-23 09:31 | CASEMGMT ---
Addendum entered by Mayra Jones 06/23/21 10:06: Per Roge TODD, pt does not qualify for home oxygen at this time. Pt voices no further questions/concerns/needs. Nerissa TODD CM Original Note: Pt states no need for any therapy at discharge and states no preference for DME company, if qualifies for home oxygen at discharge. CM to follow. Nerissa TODD CM
--- NOTE | 2021-06-23 12:16 | PCM.DC ---
Discharge Instructions Diet Discharge Diet: No restrictions Activity Discharge Activity: Return to Normal Activity Dressing / Incision Call your doctor if you observe: Shortness of breath Follow Up Care Test Results: Test results from this visit will be discussed in further detail at your follow-up appointment, if applicable. Discharge Plan Admission Admit Date/Time: 06/18/21 22:14 Primary Reason for Your Visit: exudative pleural effusion. Attending Provider: Oj Lorenzo Primary Care Provider: Wes Magallon Discharge Orders/Prescriptions Prescriptions: Continued multivitamin Tablet 1 tab PO DAILY RF: 0 calcium carbonate 600 mg calcium (1,500 mg) tablet 600 mg PO DAILY RF: 0 furosemide 40 mg tablet 40 mg PO BID RF: 0 (DME) Handicap placard Qty: 1 RF: 0 albuterol sulfate 90 mcg/actuation HFA aerosol inhaler 2 puff INHALATION Q4H PRN (Reason: SOB) RF: 0 omeprazole 40 MG capsule 40 mg PO DAILY RF: 0 warfarin 4 mg tablet 4 mg PO MOWEFR RF: 0 warfarin 4 mg tablet 2 mg PO SUTUTH RF: 0 potassium chloride 20 mEq tablet,ER particles/crystals 20 meq PO BID RF: 0 atenolol 100 mg tablet 100 mg PO DAILY RF: 0 diltiazem HCl 240 mg capsule,extended release 24hr 240 mg PO DAILY RF: 0 Referrals / Follow Up: Wes Magallon MD [Primary Care Provider] - In 1 Week Amy Cummings NP, OTOLARYNGOLOGIST-C [Nurse Practitioner] - Within 2 Weeks (pleural effusion follow up ) Disposition Disposition (needs filled in before D/C Order can be placed): Home, Self Care
--- NOTE | 2021-06-23 12:20 | DS.PCM_ITS ---
Providers Date of Admission: 06/18/21 Primary Care Physician: Dr. Wes Magallon MD Reason For Visit: HYPOXIA, RECURRENT R SIDED EFFUSION Diagnosis Discharge Diagnosis (1) Pleural effusion on right: Status: Acute Code(s): J90 - Pleural effusion, not elsewhere classified Medications at Discharge Home Medications omeprazole 40 mg PO DAILY 10/19/14 calcium carbonate 600 mg calcium (1,500 mg) tablet 600 mg PO DAILY 06/19/19 multivitamin 1 tab PO DAILY 06/19/19 furosemide 40 mg tablet 40 mg PO BID tab 11/22/19 Handicap placard #1 ea 01/07/20 warfarin 4 mg tablet 2 mg PO SUTUTHSA 01/07/20 warfarin 4 mg tablet 4 mg PO MOWEFR 01/07/20 albuterol sulfate 90 mcg/actuation aerosol inhaler 2 puff INHALATION Q4H PRN g 01/09/20 diltiazem HCl 240 mg PO DAILY 04/26/21 potassium chloride 20 meq PO BID 04/26/21 metoprolol tartrate 50 mg PO BID #60 tab 06/23/21 Hospital Course Operations None Procedures Thoracentesis Summary of Care Provided Minutes Spent on Discharge: 32 Hospital Course: 1. Acute hypoxic respiratory failure 2/2 effusion and CHF resolved now tolerating room air with ambulation 2. right exudative pleural effusion etiology unclear, it is not apparent in the medical record here that her last thoracentesis fluid was analyzed at this hospital. Has seen pulmonology in past. Pt will need to follow up for cytology 3 paroxysmal atrial fibrillation with rapid ventricular response. continue metoprolol and resume diltiazem atenolol discontinued 4. chronic obstructive pulmonary disease-patient will continue on albuterol ae rosols as needed 5. mild pulmonary hypertension-patient is currently on furosemide 6. essential hypertension-patient is now on atenolol and IV Lasix 7. acute on chronic diastolic congestive heart failure-continue PO furosemide Physical Exam Const alert Resp normal respiratory effort, no retractions, no use of accessory muscles and clear to auscultation bilaterally Cardio regular rate, regular rhythm, S1 normal heart sound and S2 normal heart sound Weight / BMI Weight Weight: 58.6 kg Body Mass Index (BMI) 24.7 ABG / Lab / Microbiology Data Result Diagrams: 06/19/21 03:25 06/22/21 04:52 Laboratory: Laboratory Results - last 24 hr 06/22/21 13:51: Fluid Glucose 137 H 06/22/21 13:51: Fluid LDH 84 06/22/21 13:51: Fluid Total Protein 4.3 06/22/21 13:51: Fluid Source THORACENTESIS, Fluid Color YELLOW, Fluid Appearance TURBID, Fluid WBC 0.655, Fluid RBC 0.010, Fluid Tot Cell Count 0.786 H, Fld Polynuclear WBCs # 0.020, Fld Polynuclear WBCs % 3.0, Fluid Mononuclear WBCs 0.635, Fld Mononuclear WBCs % 97.0, Fluid Neutrophils 2, Fluid Lymphocytes 69, Fluid Macrophages 27, Fluid Other Cells 2, Fl Pathologist Comment May follow, Fluid Comment 2 SEE COMMENT Microbiology: Microbiology 06/22/21 13:51 Fluid - Thoracentesis Fluid Gram Stain - Final 06/22/21 13:51 Fluid - Thoracentesis Fluid Body Fluid Culture - Preliminary No growth-Final to follow 06/19/21 20:35 Interface Orders Streptococcus pneumoniae Antigen (M - Final 06/19/21 20:35 Interface Orders Legionella Antigen - Final 06/18/21 21:35 Nasal Secretion SARS-CoV-2 Antigen (Rapid) - Final Radiography Diagnostic Testing: Radiology Impression Thoracentesis Ultrasound 06/22/21 08:00 IMPRESSION: Ultrasound-guided right thoracentesis. Electronically Signed: Shashi Jacobo MD at 14:14 EST , Service support , Chest X-Ray 06/22/21 13:40 IMPRESSION: Small right pleural effusion. No pneumothorax Electronically Signed: Senthil Ye MD at 16:27 EST Tel , Service support , D/C Instructions Discharge Diet: No restrictions Call your doctor if you observe: Shortness of breath Meaningful Use Info Meaningful Use Diagnoses (Choose all that apply): None applicable Discharge Plan Admission Admit Date/Time: 06/18/21 22:14 Primary Reason for Your Visit: exudative pleural effusion. Attending Provider: Oj Lorenzo Primary Care Provider: Wes Magallon Discharge Orders/Prescriptions Prescriptions: New metoprolol tartrate 50 mg Tablet 50 mg PO BID Qty: 60 RF: 0 Continued multivitamin Tablet 1 tab PO DAILY RF: 0 calcium carbonate 600 mg calcium (1,500 mg) tablet 600 mg PO DAILY RF: 0 furosemide 40 mg tablet 40 mg PO BID RF: 0 (DME) Handicap placard Qty: 1 RF: 0 albuterol sulfate 90 mcg/actuation HFA aerosol inhaler 2 puff INHALATION Q4H PRN (Reason: SOB) RF: 0 omeprazole 40 MG capsule 40 mg PO DAILY RF: 0 warfarin 4 mg tablet 4 mg PO MOWEFR RF: 0 warfarin 4 mg tablet 2 mg PO SUTUTHSA RF: 0 potassium chloride 20 mEq tablet,ER particles/crystals 20 meq PO BID RF: 0 diltiazem HCl 240 mg capsule,extended release 24hr 240 mg PO DAILY RF: 0 Discontinued atenolol 100 mg tablet 100 mg PO DAILY RF: 0 Referrals / Follow Up: Wes Magallon MD [Primary Care Provider] - In 1 Week Amy Cummings NP, CAREER TECHNICAL EDUCATION TEACHER-C [Nurse Practitioner] - Within 2 Weeks (pleural effusion follow up ) Disposition Disposition (needs filled in before D/C Order can be placed): Home, Self Care Charges/Coding Visit Charges Inpatient E&M: 02228 Disch Hosp
[2021-06-23 13:06] LABS: Pathologist Comment/Body Fluid Reviewed
[2021-06-24 17:39] LABS: pH, Body Fluid 11254 7.6 (Not Estab.)
== END 2021-06-23 15:00 | disposition home or self-care (01) | DRG 291 ==
LOC: ED 22:39 → PCU 06-19 06:47
PROVIDERS: Internal Medicine; Admitting Provider Family Medicine; Emergency Provider Emergency Medicine; PCP Family Medicine
DX: I11.0 Hypertensive heart disease with heart failure (principal); J96.01 Acute respiratory failure with hypoxia; I50.33 Acute on chronic diastolic (congestive) heart failure; J91.8 Pleural effusion in other conditions classified elsewhere; Q87.40 Marfan syndrome, unspecified; I48.0 Paroxysmal atrial fibrillation; J44.9 Chronic obstructive pulmonary disease, unspecified; I27.20 Pulmonary hypertension, unspecified; M06.9 Rheumatoid arthritis, unspecified; E78.5 Hyperlipidemia, unspecified; K21.9 Gastro-esophageal reflux disease without esophagitis; Z20.822 Contact with and (suspected) exposure to COVID-19; Z79.01 Long term (current) use of anticoagulants; Z79.899 Other long term (current) 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
CPT/HCPCS: 32555; 36415; 71045; 71046; 80048; 80053; 82945; 83615; 83735; 83880; 83986; 84156; 84157; 84443; 84484; 85025; 85610; 87015; 87070; 87075; 87116; 87205; 87206; 87426; 87449; 88108; 88305; 88313; 89050; 93005; 99251; 99283; A4216; G0463; J1940

== ENCOUNTER 2021-07-07 14:35 | Inpatient (IN) | payer MEDICARE, SELFPAY ==
[2021-07-07] VITALS (11 sets, daily range): BP systolic 99–114; BP diastolic 65–82; PULSE 74–125; RESP 18–25; TEMP 36–36.6; O2SAT 88–96; BMI 25.3; BMI 24.7
--- NOTE | 2021-07-07 14:51 | EKG12_ITS ---
Test Reason : AFIB Blood Pressure : / mmHG Vent. Rate : 097 BPM Atrial Rate : 097 BPM P-R Int : 000 ms QRS Dur : 074 ms QT Int : 340 ms P-R-T Axes : 000 061 041 degrees QTc Int : 431 ms Atrial fibrillation Abnormal ECG Confirmed by AKIN MARKS, DESTINEE ([id number]), editorial director NIRAV VENTURA ([id number]) on 07/08/2021 11:09:06 AM Referred By: SHIRA Confirmed By:AZAR GERARDO MD
--- NOTE | 2021-07-07 14:53 | EDS_ITS ---
HPI History of Present Illness Chief Complaint: Palpitations Narrative Narrative: Patient presents from her lineworker, Dr. Edwards's office. She has past medical history of atrial fibrillation, on Coumadin, and had recently been admitted to the hospital on June 18. She had a right pleural effusion at that time. He states that they had removed approximately 700 mL. However, she went home on her same Lasix dose. She started complaining of increasing shortness of breath. He performed a chest x-ray as an outpatient last week which showed reaccumulation of her pleural effusion. She has been holding her Coumadin for the last 6 days and was scheduled for an outpatient thoracentesis today when her heart rate was in the 140s. She states she intermittently feels palpitations, but denies any chest pain. She has had increasing shortness of breath and a rare, occasional cough. He since her to the emergency department for stabilization of her heart rate as he is uncomfortable performing thoracentesis given her atrial fibrillation with rapid ventricular response. 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 [facility] Medical History Chronic anticoagulation COPD (chronic obstructive pulmonary disease) COPD (chronic obstructive pulmonary disease) GERD (gastroesophageal reflux disease) HLD (hyperlipidemia) HTN (hypertension) Hypokalemia Hyponatremia Marfans syndrome PAF (paroxysmal atrial fibrillation) Paroxysmal atrial fibrillation with RVR Pleural effusion PNA (pneumonia) Pulmonary hypertension Rheumatoid arthritis Rheumatoid arthritis Subtherapeutic international normalized ratio (INR) Home Medications omeprazole 40 mg PO DAILY 10/19/14 [History Last Taken 07/07/21] calcium carbonate 600 mg calcium (1,500 mg) tablet 600 mg PO DAILY 06/19/19 [History Last Taken 07/07/21] multivitamin 1 tab PO DAILY 06/19/19 [History Last Taken 07/07/21] furosemide 40 mg tablet 40 mg PO BID tab 11/22/19 [History Last Taken 07/07/21] Handicap placard #1 ea 01/07/20 [Rx Last Taken Unknown] warfarin 4 mg tablet 2 mg PO SUTUTHSA 01/07/20 [History Last Taken 07/01/21] warfarin 4 mg tablet 4 mg PO MOWEFR 01/07/20 [History Last Taken 06/30/21] albuterol sulfate 90 mcg/actuation aerosol inhaler 2 puff INHALATION Q4H PRN g 01/09/20 [History Last Taken 1 Week Ago ~06/30/21] diltiazem HCl 240 mg PO DAILY 04/26/21 [History Last Taken 07/07/21] potassium chloride 20 meq PO BID 04/26/21 [History Last Taken 07/07/21] metoprolol tartrate 50 mg PO BID #60 tab 06/23/21 [Rx Last Taken 07/07/21] Allergy/AdvReac Type Severity Reaction Status Date / Time pneumococcal vaccine Allergy Severe Rash Verified 07/07/21 14:43 [From Prevnar 13 (PF)] Latex, Natural Rubber Allergy Rash Verified 07/07/21 14:43 rosuvastatin calcium Allergy myalgias Verified 07/07/21 14:43 [From Crestor] ibuprofen AdvReac Nausea Verified 07/07/21 14:43 Family History Mother Diabetes Colon cancer Marfan syndrome Sister Diabetes Hypertension Brother Marfan syndrome COPD (chronic obstructive pulmonary disease) Brother Marfan syndrome Father Gastric ulcer GERD (gastroesophageal reflux disease) Surgical History History of eye surgery History of hysterectomy Social History household members: spouse housing: other details: They take care of their handicap son who also lives with them. Smoking Status: Never smoker alcohol intake: never substance use type: does not use caffeine: Yes Type: coffee Number of servings: 4 ROS ROS ED ROS Narrative Constitutional: No fever, no chills. HEENT: No sore throat. No neck pain. No loss of vision. No rhinorrhea. Cardiovascular: No chest pain. Occasional palpitations. No pedal edema. Respiratory: Rare cough, positive shortness of breath. Abdominal: No abdominal pain. No nausea. No vomiting. Genitourinary: No dysuria. No hematuria. Musculoskeletal: No myalgias. No arthralgias. Neurologic: No headaches. No dizziness. No lightheadedness. Skin: No rash. No change in color. Psychiatric: No depression. No anxiety. EXAM Physical Exam Narrative Exam Narrative: Afebrile. Vital signs noted. HEENT: Normocephalic. Atraumatic. PERRL, EOMI. Neck soft and supple. No point tenderness or step off. Cardiovascular: Irregularly irregular tachycardia in the 100s, no murmurs, rubs, or gallops appreciated. Respiratory: No tachypnea. Lungs clear to auscultation bilaterally. Decreased breath sounds right base, decreased tactile fremitus right base. Gastrointestinal: Abdomen soft, nontender, with normoactive bowel sounds. No rebound or guarding. Neurological: Awake. Alert. Nonfocal, nonlateralizing. Skin: No rash. Normal color. No pallor. Musculoskeletal: No pedal edema. Full range of motion extremities. Const Vital Signs: 07/07/21 14:37 07/07/21 14:46 07/07/21 16:38 Temperature 97.9 F Temperature Source Oral Pulse Rate 116 H 93 Respiratory Rate 25 H 22 H Respiratory Pattern Normal Blood Pressure 114/73 104/65 Blood Pressure Mean 86 78 Pulse Ox 96 94 Oxygen Delivery Method Room Air MDM MDM MDM Narrative Medical decision making narrative: EKG demonstrates atrial fibrillation at 97 bpm. Her previous also showed atrial fibrillation at 113 bpm. Comprehensive work-up was pursued. She was placed on a operations scheduler. I will check her INR level. Plan will be for at least observation so that she could get her thoracentesis pending her chest x-ray today. CBC shows slightly elevated white count of 11.2, hemoglobin stable at 12.7. INR is subtherapeutic secondary to her with holding it for the last 6 days. Potassium slightly low at 3.4. High-sensitivity troponin normal at 5. BNP slightly elevated at 381. Additionally, her chest x-ray does show reaccumulation of her pleural fluid. While I was discussing her results, her pulse ox varies from 90 to 92% on room air. She will be ambulated. I discussed the patient with Dr. Reich who will place the patient on observation in the PCU. Her heart rate has normalized into the 70s and varies to as high as the 1 teens even at rest. Patient is in stable condition. Lab Data Attestation: I reviewed the patient's lab results. Labs: Laboratory Results - last 24 hr 07/07/21 07/07/21 07/07/21 14:40 14:40 14:40 WBC 11.2 H RBC 4.62 Hgb 12.7 Hct 40.0 MCV 86.6 MCH 27.5 MCHC 31.8 L RDW Std Deviation 48.2 H RDW Coeff of Angelo 15.3 H Plt Count 407 MPV 9.1 Immature Gran % (Auto) 0.500 Neut % (Auto) 77.7 H Lymph % (Auto) 11.1 L Bent % (Auto) 9.1 Eos % (Auto) 0.8 Baso % (Auto) 0.8 Absolute Neuts (auto) 8.7 H Absolute Lymphs (auto) 1.24 Nucleated RBC % 0 PT 14.5 INR 1.2 Sodium 136 Potassium 3.4 L Chloride 101 Carbon Dioxide 28.0 Anion Gap 7 BUN 11 Creatinine 0.87 Estim Creat Clear Calc 42.16 Est GFR (MDRD) Af Amer 81 Est GFR (MDRD) Non-Af 67 BUN/Creatinine Ratio 12.6 Glucose 139 H Calcium 8.4 L Troponin I High Sens 5 B-Natriuretic Peptide 07/07/21 14:40 WBC RBC Hgb Hct MCV MCH MCHC RDW Std Deviation RDW Coeff of Angelo Plt Count MPV Immature Gran % (Auto) Neut % (Auto) Lymph % (Auto) Bent % (Auto) Eos % (Auto) Baso % (Auto) Absolute Neuts (auto) Absolute Lymphs (auto) Nucleated RBC % PT INR Sodium Potassium Chloride Carbon Dioxide Anion Gap BUN Creatinine Estim Creat Clear Calc Est GFR (MDRD) Af Amer Est GFR (MDRD) Non-Af BUN/Creatinine Ratio Glucose Calcium Troponin I High Sens B-Natriuretic Peptide 381.7 H Radiography Diagnostic Testing: Clinical Impression(s) from Imaging Studies Chest X-Ray 07/07/21 15:20 IMPRESSION: Interval increase in size of the right pleural effusion with right basilar atelectasis and/or infiltrate. Electronically Signed: Shashi Jacobo MD at 15:34 EST , Discharge Plan Dx/Rx/DC Orders Clinical Impression: Pleural effusion on right, Atrial fibrillation, SOB (shortness of breath) Disposition Disposition: Acute Care Hospital [facility]
--- NOTE | 2021-07-07 14:55 | ED.RN ---
Pt came w/IV access from surgery center.
--- NOTE | 2021-07-07 15:20 | RAD_ITS ---
STUDY: X-RAY CHEST REASON FOR EXAM: Female, 75 years old. Pleural Effusion TECHNIQUE: Single AP portable view of the chest. COMPARISON: Comparison is made with prior study dated 06/22/2021. FINDINGS: EKG electrodes are seen. Moderate size right pleural effusion with right basilar atelectasis and/or infiltrate. This has progressed as compared to prior study. Normal size heart. Normal mediastinum and claudia. Normal visualized pulmonary arteries. There is atherosclerotic calcification of the aortic arch with tortuosity. Normal visualized thoracic spine. Normal visualized ribs, clavicles, and shoulders. There is no demonstrated abnormality of the visualized soft tissue structures of the upper abdomen. RAD/Chest 1 View (Portable) IMPRESSION: Interval increase in size of the right pleural effusion with right basilar atelectasis and/or infiltrate. Electronically Signed: Shashi Jacobo MD at 15:34 EST ,
[2021-07-07 15:29] LABS: Absolute Lymphocyte Count 1.24 X10^3/uL (0.83-4.51); Absolute Neutrophil Count 8.7 X10^3/uL (2.0-7.7); Basophil# 0.09 X10^3/uL; Basophil% 0.8 % (0-1); Eosinophil# 0.09 X10^3/uL; Eosinophils% 0.8 % (0-5); Hemoglobin 12.7 g/dL (12.0-15.0); International Normalized Ratio 1.2; Lymphocyte # 1.24 X10^3/ul (0.83-4.51); Lymphocyte % 11.1 % (19-41); Mean Corp Hgb Conc 31.8 g/dL (32-36); Mean Corpuscular Hgb 27.5 pg (27.0-32.0); Mean Corpuscular Volume 86.6 fL (81-99); Mean Platelet Vol. 9.1 fl (6.2-12.0); Monocyte# 1.02 X10^3/uL; Monocyte% 9.1 % (0-10); NRBC Flagged by Analyzer 0 % (0-5); Neutrophil # 8.65 X10^3/uL (2.7-7.7); Neutrophil % 77.7 % (47-70); Platelet Count 407 K/mm3 (150-450); Prothrombin Time (Protime)PT. 14.5 SECONDS (11.7-14.9); RBC Distribution Width CV 15.3 % (11.6-14.6); RBC Distribution Width SD 48.2 fl (35.1-43.9); Red Blood Count 4.62 M/mm3 (4.2-5.4); White Blood Count 11.2 K/mm3 (4.4-11.0)
[2021-07-07 15:35] LABS: Anion Gap 7 (5-15); BUN 11 mg/dL (7-18); BUN/Creat Ratio 12.6 RATIO (10-20); Calcium,Total 8.4 mg/dL (8.5-10.1); Chloride 101 mmol/L (98-107); Creatinine, Serum 0.87 mg/dL (0.55-1.02); EST Glomerular Filtration Rate 67 mL/min (>60); Est Glom Filt Rate - Afr Amer 81 mL/min (>60); Estimated Creatinine Clearance 42.16 ml/min; Glucose 139 mg/dL (74-106); Potassium 3.4 mmol/L (3.5-5.1); Sodium Level 136 mmol/L (136-145); Troponin-I HS 5 pg/mL (3.0-54.0)
[2021-07-07 16:10] LABS: BNP,B-Type NATRIURETIC PEPTIDE 381.7 pg/mL (0-100)
--- NOTE | 2021-07-07 18:27 | PCM.HP.STD ---
[facility] - General General Date of Admission: 07/07/21 Date of Service: 07/07/21 Chief Complaint: Palpitations - 1 day HPI Narrative NIMISHA CEJA, is a 75 F who presents from her medicaid eligibility specialist office with complaints of shortness of breath and A. fib with RVR. Patientwas recently admitted on 06/18/21 and discharged on 06/23/21 for acute hypoxic respiratory failure secondary to right pleural effusion and CHF. Patient was found to be in A. fib with RVR in that admission that resolved with metoprolol and Cardizem. Patient had gone into follow-up with Dr. Edwards in the outpatient for a planned thoracentesis. She has been off her Coumadin. She was found to be in A. fib with RVR and sent to the ED. In the ED, heart rate was momentarily 116, and settled in 80s and 90s. She was saturating in the 90s. Her WBC was 11.2, Hb 12.7, Plt 407. BMP was unremarkable except for K 3.4. INR is 1.2. BNPep 381.7. Chest X-ray showed moderate right pleural effusion. s [facility] Medical History (Updated 07/07/21 @ 18:[address] Dolly Reich MD) Chronic anticoagulation COPD (chronic obstructive pulmonary disease) COPD (chronic obstructive pulmonary disease) GERD (gastroesophageal reflux disease) HLD (hyperlipidemia) HTN (hypertension) Hypokalemia Hyponatremia Marfans syndrome PAF (paroxysmal atrial fibrillation) Paroxysmal atrial fibrillation with RVR Pleural effusion PNA (pneumonia) Pulmonary hypertension Rheumatoid arthritis Rheumatoid arthritis Subtherapeutic international normalized ratio (INR) Home Medications omeprazole 40 mg PO DAILY 10/19/14 [History Last Taken 07/07/21] calcium carbonate 600 mg calcium (1,500 mg) tablet 600 mg PO DAILY 06/19/19 [History Last Taken 07/07/21] multivitamin 1 tab PO DAILY 06/19/19 [History Last Taken 07/07/21] furosemide 40 mg tablet 40 mg PO BID tab 11/22/19 [History Last Taken 07/07/21] Handicap placard #1 ea 01/07/20 [Rx Last Taken Unknown] warfarin 4 mg tablet 2 mg PO SUTUTHSA 01/07/20 [History Last Taken 07/01/21] warfarin 4 mg tablet 4 mg PO MOWEFR 01/07/20 [History Last Taken 06/30/21] albuterol sulfate 90 mcg/actuation aerosol inhaler 2 puff INHALATION Q4H PRN g 01/09/20 [History Last Taken 1 Week Ago ~06/30/21] diltiazem HCl 240 mg PO DAILY 04/26/21 [History Last Taken 07/07/21] potassium chloride 20 meq PO BID 04/26/21 [History Last Taken 07/07/21] metoprolol tartrate 50 mg PO BID #60 tab 06/23/21 [Rx Last Taken 07/07/21] Allergy/AdvReac Type Severity Reaction Status Date / Time pneumococcal vaccine Allergy Severe Rash Verified 07/07/21 14:43 [From Prevnar 13 (PF)] Latex, Natural Rubber Allergy Rash Verified 07/07/21 14:43 rosuvastatin calcium Allergy myalgias Verified 07/07/21 14:43 [From Crestor] ibuprofen AdvReac Nausea Verified 07/07/21 14:43 Family History Mother Diabetes Colon cancer Marfan syndrome Sister Diabetes Hypertension Brother Marfan syndrome COPD (chronic obstructive pulmonary disease) Brother Marfan syndrome Father Gastric ulcer GERD (gastroesophageal reflux disease) Surgical History History of eye surgery History of hysterectomy Social History household members: spouse housing: other details: They take care of their handicap son who also lives with them. Smoking Status: Never smoker alcohol intake: never substance use type: does not use caffeine: Yes Type: coffee Number of servings: 4 Vital Signs Vital Signs Vital Signs: 07/07/21 14:37 07/07/21 14:46 07/07/21 16:38 Temperature 97.9 F Temperature Source Oral Pulse Rate 116 H 93 Respiratory Rate 25 H 22 H Respiratory Pattern Normal Blood Pressure 114/73 104/65 Blood Pressure Mean 86 78 Pulse Ox 96 94 Oxygen Delivery Method Room Air Weight Weight: 60.781 kg Body Mass Index (BMI) 25.3 Physical Exam Narrative Physical exam: General: Alert, oriented x3, cooperative, appears frail, on 2L oxygen HEENT: Atraumatic Oral: Moist Mucosa Neck: Supple Lungs: Diminished to auscultation, crackles at bases Cardiovascular: HS I+II, regular, no murmurs Abdomen: Bowel Sounds Present, Soft, Non Tender Extremities: No edema Results Lab / Micro Data Result Diagrams: 07/07/21 14:40 07/07/21 14:40 Labs: Laboratory Results - last 24 hr 07/07/21 14:40: WBC 11.2 H, RBC 4.62, Hgb 12.7, Hct 40.0, MCV 86.6, MCH 27.5, MCHC 31.8 L, RDW Std Deviation 48.2 H, RDW Coeff of Angelo 15.3 H, Plt Count 407, MPV 9.1, Immature Gran % (Auto) 0.500, Neut % (Auto) 77.7 H, Lymph % (Auto) 11.1 L, Franklin % (Auto) 9.1, Eos % (Auto) 0.8, Baso % (Auto) 0.8, Absolute Neuts (auto) 8.7 H, Absolute Lymphs (auto) 1.24, Nucleated RBC % 0 07/07/21 14:40: PT 14.5, INR 1.2 07/07/21 14:40: Sodium 136, Potassium 3.4 L, Chloride 101, Carbon Dioxide 28.0, Anion Gap 7, BUN 11, Creatinine 0.87, Estim Creat Clear Calc 42.16, Est GFR (MDRD) Af Amer 81, Est GFR (MDRD) Non-Af 67, BUN/Creatinine Ratio 12.6, Glucose 139 H, Calcium 8.4 L, Troponin I High Sens 5 07/07/21 14:40: B-Natriuretic Peptide 381.7 H Radiology Impression Chest X-Ray 07/07/21 15:20 IMPRESSION: Interval increase in size of the right pleural effusion with right basilar atelectasis and/or infiltrate. Electronically Signed: Shashi Jacobo MD at 15:34 EST , Assessment & Plan Assessment/Plan (1) Acute respiratory failure with hypoxia: (2) Hypokalemia: (3) Pleural effusion on right: PLAN: 1. Acute hypoxic respiratory failure secondary to right sided pleural effusion; Status post ultrasound-guided right thoracocentesis on 06/22/21; 770 mils of fluid were removed Cytology was negative for malignant cells; fluid analysis was exudative per Fluid protein: serum protein Light's criteria Fluid cultures were negative. Pleural fluid appears to have reaccumulated Admitting chest x-ray shows moderate right-sided pleural effusion Continue on oxygen, encourage use of incentive spirometer, continue Lasix, pulmonology consult Continue to hold warfarin in light of probable thoracocentesis, INR in a.m. 2. Paroxysmal atrial fibrillation, with intermittent RVR Likely secondary to #1 Continue on home metoprolol and Cardizem with holding parameters Continue to hold Coumadin, repeat INR in a.m. 3. Heart failure preserved EF, chronic, not likely to be in acute exacerbation clinically Continue Lasix 40 mg IV twice daily to see if it helps with pleural effusion 4. COPD/pulmonary hypertension, not in acute exacerbation 5. Hypertension, controlled, continue Cardizem and metoprolol 6. DVT prophylaxis?Lovenox subcu Charges/Coding Visit Charges Inpatient E&M: 97651 Init Hosp L3
--- NOTE | 2021-07-07 18:53 | CM.ED ---
ER RNCM Re-Admission Note: Patient admitted 06/18-06/23/21 for Hypoxia and Right side pleural effusion. Had Thoracentesis with approx 700ml output. Had a F/u cxr last week which showed reaccumulation of pleural effusion with plan to have thoracentesis today 07/07/21 as outpatient. Patient presented to office with Afib RVR and sent to ER. Refer to RNCM IA on last admit. All information verified correct and no changes from last admit. Plan upon DC is to return home. Patient denies any issues, concerns or needs at this time with returning home. Patient currently on CHRISTY Gunter
[2021-07-07 19:10] LABS: Magnesium 2.2 mg/dL (1.6-2.6)
[2021-07-07] MEDS: Potassium Chloride Oral Tablet 20 MEQ 60 MEQ PO (19:59)
[2021-07-07] MEDS: Metoprolol Tartrate 50 MG Tablet PO (20:00)
[2021-07-07] MEDS: Furosemide 40 MG/4 ML Vial IV (20:22)
[2021-07-07] MEDS: 0.9% Saline Lock 10 ML Syringe IV (20:22)
[2021-07-07 21:06] LABS: AST(SGOT) 18 U/L (15-37); Alanine Aminotransfer ALT/SGPT 16 U/L (13-56); Albumin, Serum 3.1 g/dL (3.2-5.0); Alkaline Phosphatase 109 U/L (45-117); Bilirubin, Direct 0.22 mg/dL (0.00-0.30); Globulin 4.1 g/dL (2.2-4.2); Protein, Total 7.2 g/dL (6.4-8.2); Troponin-I HS 6 pg/mL (3.0-54.0)
[2021-07-07 21:28] LABS: Troponin-I HS 7 pg/mL (3.0-54.0)
[2021-07-08] VITALS (18 sets, daily range): BP systolic 96–105; BP diastolic 62–79; PULSE 86–125; RESP 16–18; TEMP 36.2–36.8; O2SAT 95–97
[2021-07-08] MEDS: Metoprolol Tartrate 5 MG/5 ML Vial IV (00:21)
[2021-07-08] MEDS: 0.9% Saline Lock 10 ML Syringe IV (00:23)
[2021-07-08 06:05] LABS: Absolute Lymphocyte Count 1.91 X10^3/uL (0.83-4.51); Absolute Neutrophil Count 5.2 X10^3/uL (2.0-7.7); Basophil# 0.06 X10^3/uL; Basophil% 0.7 % (0-1); Eosinophil# 0.21 X10^3/uL; Eosinophils% 2.5 % (0-5); Hematocrit 38.5 % (37-47); Hemoglobin 12.4 g/dL (12.0-15.0); Lymphocyte # 1.91 X10^3/ul (0.83-4.51); Mean Corp Hgb Conc 32.2 g/dL (32-36); Mean Corpuscular Hgb 27.7 pg (27.0-32.0); Mean Corpuscular Volume 85.9 fL (81-99); Mean Platelet Vol. 9.1 fl (6.2-12.0); Monocyte# 0.91 X10^3/uL; NRBC Flagged by Analyzer 0 % (0-5); Neutrophil # 5.17 X10^3/uL (2.7-7.7); Neutrophil % 62.3 % (47-70); Platelet Count 391 K/mm3 (150-450); RBC Distribution Width CV 15.4 % (11.6-14.6); RBC Distribution Width SD 47.9 fl (35.1-43.9); Red Blood Count 4.48 M/mm3 (4.2-5.4); White Blood Count 8.3 K/mm3 (4.4-11.0)
[2021-07-08 06:27] LABS: International Normalized Ratio 1.2; Prothrombin Time (Protime)PT. 14.1 SECONDS (11.7-14.9)
[2021-07-08 06:38] LABS: ALB/GLOB Ratio 0.8 RATIO (0.9-2.4); AST(SGOT) 17 U/L (15-37); Alanine Aminotransfer ALT/SGPT 14 U/L (13-56); Alkaline Phosphatase 106 U/L (45-117); Anion Gap 5 (5-15); BUN 9 mg/dL (7-18); BUN/Creat Ratio 14.2 RATIO (10-20); Calcium,Total 8.6 mg/dL (8.5-10.1); Chloride 106 mmol/L (98-107); Creatinine, Serum 0.64 mg/dL (0.55-1.02); EST Glomerular Filtration Rate 97 mL/min (>60); Est Glom Filt Rate - Afr Amer 117 mL/min (>60); Estimated Creatinine Clearance 36.68 ml/min; Glucose 76 mg/dL (74-106); Potassium 3.9 mmol/L (3.5-5.1); Sodium Level 139 mmol/L (136-145)
[2021-07-08] MEDS: Multivitamins,Therapeutic Tablet 1 TABLET PO (08:48)
[2021-07-08] MEDS: Potassium Chloride Oral Tablet 20 MEQ PO ×2 (08:48→17:47)
[2021-07-08] MEDS: Calcium (Elemental) 500 MG Tablet PO (08:48)
[2021-07-08] MEDS: dilTIAZem CD 240 MG Capsule PO (08:49)
[2021-07-08] MEDS: Pantoprazole Sodium 40 MG Tablet PO (10:09)
[2021-07-08] MEDS: Metoprolol Tartrate 50 MG Tablet PO (10:09)
[2021-07-08] MEDS: Enoxaparin 40 MG/0.4 ML Syringe SC (10:09)
[2021-07-08] MEDS: Furosemide 40 MG/4 ML Vial IV ×2 (10:09→17:47)
--- NOTE | 2021-07-08 12:33 | PN.HOSP_ITS ---
Documented by User: Tom WANG 07/08/21 12:45 Subjective Subjective Patient is a 75-year-old female comfortably lying in bed, alert and orient x3. Denies development of any new symptoms overnight. Does not appear in acute distress. Objective Data Objective Data Vital Signs: Vital Signs Temp Pulse Resp BP Pulse Ox 98.1 F 105 H 16 102/70 96 07/08/21 08:45 07/08/21 10:09 07/08/21 08:45 07/08/21 10:09 07/08/21 08:45 Oxygen Flow Rate (L/min) 2 Oxygen Delivery Method Room Air Weight: 130 lb 15.273 oz Body Mass Index (BMI) 24.7 Intake & Output: Intake and Output for Last 24 Hours 07/06/21 07/07/21 07/08/21 23:59 23:59 23:59 Intake Total 100 / 100 Output Total 0 / 0 Balance 100 / 100 Lab / Micro Data Result Diagrams: 07/08/21 04:41 07/08/21 04:41 Labs: Laboratory Results - last 24 hr 07/07/21 14:40: WBC 11.2 H, RBC 4.62, Hgb 12.7, Hct 40.0, MCV 86.6, MCH 27.5, MCHC 31.8 L, RDW Std Deviation 48.2 H, RDW Coeff of Angelo 15.3 H, Plt Count 407, MPV 9.1, Immature Gran % (Auto) 0.500, Neut % (Auto) 77.7 H, Lymph % (Auto) 11.1 L, [place] % (Auto) 9.1, Eos % (Auto) 0.8, Baso % (Auto) 0.8, Absolute Neuts (auto) 8.7 H, Absolute Lymphs (auto) 1.24, Nucleated RBC % 0 07/07/21 14:40: PT 14.5, INR 1.2 07/07/21 14:40: Sodium 136, Potassium 3.4 L, Chloride 101, Carbon Dioxide 28.0, Anion Gap 7, BUN 11, Creatinine 0.87, Estim Creat Clear Calc 42.16, Est GFR (MDRD) Af Amer 81, Est GFR (MDRD) Non-Af 67, BUN/Creatinine Ratio 12.6, Glucose 139 H, Calcium 8.4 L, Troponin I High Sens 5 07/07/21 14:40: B-Natriuretic Peptide 381.7 H 07/07/21 18:53: Magnesium 2.2 07/07/21 18:53: Total Bilirubin 0.60, Direct Bilirubin 0.22, AST 18, ALT 16, Alkaline Phosphatase 109, Troponin I High Sens 6, Total Protein 7.2, Albumin 3.1 L, Globulin 4.1 07/07/21 21:00: Troponin I High Sens 7 07/08/21 04:41: WBC 8.3, RBC 4.48, Hgb 12.4, Hct 38.5, MCV 85.9, MCH 27.7, MCHC 32.2, RDW Std Deviation 47.9 H, RDW Coeff of Angelo 15.4 H, Plt Count 391, MPV 9.1, Immature Gran % (Auto) 0.500, Neut % (Auto) 62.3, Lymph % (Auto) 23.0, [place] % (Auto) 11.0 H, Eos % (Auto) 2.5, Baso % (Auto) 0.7, Absolute Neuts (auto) 5.2, Absolute Lymphs (auto) 1.91, Nucleated RBC % 0 07/08/21 04:41: PT 14.1, INR 1.2 07/08/21 04:41: Sodium 139, Potassium 3.9, Chloride 106, Carbon Dioxide 28.0, Anion Gap 5, BUN 9, Creatinine 0.64, Estim Creat Clear Calc 36.68, Est GFR (MDRD) Af Amer 117, Est GFR (MDRD) Non-Af 97, BUN/Creatinine Ratio 14.2, Glucose 76, Calcium 8.6, Total Bilirubin 0.70, AST 17, ALT 14, Alkaline Phosphatase 106, Total Protein 7.0, Albumin 3.0 L, Globulin 4.0, Albumin/Globulin Ratio 0.8 L Radiography Diagnostic Testing: Radiology Impression Chest X-Ray 07/07/21 15:20 IMPRESSION: Interval increase in size of the right pleural effusion with right basilar atelectasis and/or infiltrate. Electronically Signed: Shashi Jacobo MD at 15:34 EST , Physical Exam Const alert, oriented x3 and no apparent distress HEENT head/scalp atraumatic and moist oral mucous membranes Head and Scalp: normocephalic Eyes PERRL, EOMs intact bilaterally and conjunctivae normal Neck no lymphadenopathy, supple and no JVD Resp Effort and Inspection: labored Auscultation: diminished lung sounds Cardio regular rate, regular rhythm, no murmurs and no JVD GI normal to inspection, nondistended, normoactive bowel sounds, soft to palpation and non-tender Extremity normal to inspection, full ROM and no clubbing, cyanosis or edema Skin no rashes or lesions noted, no wounds and skin turgor normal Neuro CN's II-XII intact bilaterally Psych affect normal Assessment & Plan Assessment/Plan (1) Acute respiratory failure with hypoxia: (2) Pleural effusion on right: PLAN: Day 1 Discharge planning: Current plan is for patient to discharge home when medically ready. 1) acute hypoxic respiratory failure secondary to right-sided pleural effusion. Patient no longer hypoxic currently satting 96% on room air. Patient previously underwent ipsilateral thoracentesis on 06/22 which withdrew 770 mL of fluid, cytology was negative for malignant cells although fluid was exudative per lights criteria. Fluid appears to have reaccumulated. Patient to be evaluated by radiology tomorrow for possible right-sided thoracentesis, continue to hold anticoagulation in preparation for procedure. 2) PAF Currently on metoprolol and Cardizem for rate control. Patient is anticoagulated on Coumadin although Coumadin is on hold secondary to possible procedure for #1. 3) HFpEF Stable, previous echocardiogram from 04/25 demonstrated normal LV size systolic function and an EF of 55%. Continue IV Lasix for symptomatic improvement.. 4) COPD Stable, not in acute exacerbation. As needed albuterol ordered. 5) HTN Continue Cardizem and metoprolol. 6) subtherapeutic INR Currently 1.2, Coumadin on hold due to expected procedure on 07/09. We will continue to monitor and resume anticoagulation after procedure. DVT prophylaxis - SCD's Patient seen by Tom Dixon PA-C, under the supervision of Dr. Foster. Time spent on patient care: 9 minutes. Documented by User: Dr. Gregorio Foster DO 07/08/21 16:56 Objective Data Lab / Micro Data Result Diagrams: 07/08/21 04:41 07/08/21 04:41 Charges/Coding Addendum Addendum: Patient was seen and examined independently of Tom Dixon, she was admitted yesterday due to hypoxia, atrial fibrillation with rapid ventricular response, and right pleural effusion which is recurrent. Interventional radiology is not in today and so her thoracentesis will have to be performed tomorrow. Patient's heart rate is 86 at this time, I have placed her on a beta-ted. On examination she appeared older than her stated age, she does not appear to be in any distress. Vital signs as documented. Skin warm and dry and without overt rashes. Neck without JVD, thyroid appears normal, trachea is midline, neck is supple. Lungs-breath sounds were distant over the right lower lung flores, and there is no rales rhonchi or wheezes noted.. Heart exam notable for irregular rhythm, normal sounds and absence of murmurs, rubs or gallops. Abdomen unremarkable and without evidence of organomegaly, masses, or abdominal aortic enlargement, bowel sounds are present in all 4 quadrants, no abdominal tenderness was noted. Extremities nonedematous, no cyanosis was noted, no c lubbing was noted. Neuro: Cranial nerves II through XII are grossly intact, no focal motor deficits were noted, sensation to light touch and pinprick is intact, motor exam 5/5 throughout. Psych: Patient is alert and oriented x3, she does not appear anxious or depressed, she does not appear agitated. Impression #1 chronic atrial fibrillation with rapid ventricular response- patient's heart rate is under better control at this time, continue present medications #2 chronic right pleural effusion-patient will undergo thoracentesis tomorrow, the etiology of this pleural effusion is unknown at this time #3 hypoxia-probably secondary to chronic right pleural effusion, pulse ox will be monitored #4 chronic obstructive pulmonary disease-continue albuterol aerosols as needed I have reviewed Tom Dixon's progress note including his medical assessment and plan of care and with the above additions endorse it. Clinical time spent addressing the patient's medical issues, reviewing all the medical data, and collaboration with the patient's care team: 20 minutes Visit Charges Inpatient E&M: 24132 Subs Hosp L2
[2021-07-08] MEDS: Metoprolol Tartrate 50 MG Tablet 75 MG PO (21:57)
[2021-07-09] VITALS (11 sets, daily range): BP systolic 98–121; BP diastolic 57–84; PULSE 85–120; RESP 14–20; TEMP 36.6–36.9; O2SAT 90–98
--- NOTE | 2021-07-09 | FLU_PTH ---
PATIENT: NIMISHA CEJA [place] [facility] [place] U#:[id number] AGE/SX: 75/F ROOM: [facility] RE07/08/[address]: Dr. Gregorio Foster DO : 1945 BED: 1 DIS: 07/09/2021 SPEC #: [id number] RECD: 07/09/21 10:21 STATUS: PATO BRO #: [id number] FELICIA: 07/09/21 00:[address]: Flaquito Mariee DEPT: CYTOLOGY RECD BY: Dago Solis ENTERED: 07/09/21 14:12 SP TYPE: Fluid OTHR DR: MD Dr. Gregorio Gibbons DO Dr. William Lago, MD Tissues: THORACIC FLUID Procedures: Special Stain Group II Surgery Specimen Level IV Cytospin Fluid HEADER OPERATION: Ultrasound-guided thoracentesis PRE-OP DIAGNOSIS: Pleural effusion TISSUE SUBMITTED: Thoracentesis fluid for cytology DIAGNOSIS CYTOLOGY Thoracentesis fluid for cytology (cytospin and cell block): Negative for malignant cells. See comment. JOSEA:rosana 07/12/2021 COMMENT Clinical correlation and appropriate follow up are necessary. Please make reference to previous specimens ([id number] and [id number]) thoracentesis fluid for cytology with diagnosis of ?negative for malignant cells.? CYTOLOGY STUDY Slides are reviewed. CYTOLOGY GROSS Received is 100 ml of red cloudy fluid labeled with the patient's name and and designated per the requisition as thoracentesis. Submitted for cytology preparation including cell block. / rosana 07/08/2021 TC:5 CPT: 51109, 71762
[2021-07-09 06:24] LABS: Absolute Lymphocyte Count 1.87 X10^3/uL (0.83-4.51); Basophil# 0.06 X10^3/uL; Basophil% 0.7 % (0-1); Eosinophils% 3.6 % (0-5); Hematocrit 38.4 % (37-47); Hemoglobin 12.5 g/dL (12.0-15.0); Lymphocyte # 1.87 X10^3/ul (0.83-4.51); Lymphocyte % 22.2 % (19-41); Mean Corp Hgb Conc 32.6 g/dL (32-36); Mean Corpuscular Hgb 28.2 pg (27.0-32.0); Mean Corpuscular Volume 86.5 fL (81-99); Mean Platelet Vol. 8.9 fl (6.2-12.0); Monocyte# 1.16 X10^3/uL; Monocyte% 13.8 % (0-10); NRBC Flagged by Analyzer 0 % (0-5); Neutrophil # 5.01 X10^3/uL (2.7-7.7); Neutrophil % 59.5 % (47-70); Platelet Count 406 K/mm3 (150-450); RBC Distribution Width CV 15.3 % (11.6-14.6); Red Blood Count 4.44 M/mm3 (4.2-5.4); White Blood Count 8.4 K/mm3 (4.4-11.0)
[2021-07-09 06:27] LABS: International Normalized Ratio 1.1
[2021-07-09 06:39] LABS: Anion Gap 6 (5-15); BUN 13 mg/dL (7-18); BUN/Creat Ratio 17.2 RATIO (10-20); Calcium,Total 8.7 mg/dL (8.5-10.1); Chloride 102 mmol/L (98-107); Creatinine, Serum 0.75 mg/dL (0.55-1.02); EST Glomerular Filtration Rate 79 mL/min (>60); Est Glom Filt Rate - Afr Amer 96 mL/min (>60); Estimated Creatinine Clearance 36.68 ml/min; Glucose 94 mg/dL (74-106); Potassium 3.8 mmol/L (3.5-5.1); Sodium Level 137 mmol/L (136-145)
[2021-07-09] MEDS: 0.9% Saline Lock 10 ML Syringe IV (07:50)
[2021-07-09] MEDS: Pantoprazole Sodium 40 MG Tablet PO (07:53)
[2021-07-09] MEDS: Calcium (Elemental) 500 MG Tablet PO (07:53)
[2021-07-09] MEDS: Furosemide 40 MG/4 ML Vial IV (07:53)
[2021-07-09] MEDS: Metoprolol Tartrate 50 MG Tablet 75 MG PO (07:54)
[2021-07-09] MEDS: Potassium Chloride Oral Tablet 20 MEQ PO (07:54)
[2021-07-09] MEDS: dilTIAZem CD 240 MG Capsule PO (07:54)
[2021-07-09] MEDS: Digoxin 250 MCG/ML Ampul 500 MCG IV (07:55)
--- NOTE | 2021-07-09 08:00 | US_ITS ---
PROCEDURE: ULTRASOUND GUIDED THORACENTESIS. DATE: 07/09/2021. INDICATION: Female, 75 years old. Right pleural effusion. PHYSICIAN: Shashi Jacobo M.D. PROCEDURE: The risks, benefits, and alternatives to the procedure were explained to the patient. The specific risks of bleeding, infection, and pneumothorax requiring chest tube insertion were discussed and accepted. Written informed consent was obtained. Ultrasonographic evaluation of the right lower pleural space was carried out. An adequate pocket was identified. The patient was placed in the sitting, upright position. The overlying skin was prepped and draped in sterile fashion. 1% lidocaine was administered subcutaneously for local anesthesia. Under ultrasound guidance, a 5 [place] thoracentesis needle/catheter system was advanced into the right posterior lower pleural fluid collection. Approximately 1000 mL of cloudy red fluid was drained. The catheter was removed, and a sterile dressing was applied. A specimen was collected and sent to the laboratory for analysis, as requested by the referring clinician. The patient tolerated the procedure well. A chest x-ray was ordered. US/Thoracentesis W US IMPRESSION: Ultrasound-guided right thoracentesis. Electronically Signed: Shashi Jacobo MD at 10:29 EST ,
[2021-07-09] MEDS: Lidocaine 2% (20 ml mdv) 20 ML Vial INFILT (09:45)
--- NOTE | 2021-07-09 09:45 | RAD_ITS ---
STUDY: X-RAY CHEST REASON FOR EXAM: Female, 75 years old. Post thoracentesis TECHNIQUE: AP inspiration and expiration views. COMPARISON: Comparison is made with prior examination dated 07/07/2021. FINDINGS: EKG electrodes are seen. The patient is status post right thoracentesis. Mild residual increased markings in the right midlung. There is no evidence of pneumothorax. RAD/Chest Insp/Exp 2 View IMPRESSION: No evidence of pneumothorax on the post right thoracentesis images. Electronically Signed: Shashi Jacobo MD at 10:30 EST ,
--- NOTE | 2021-07-09 10:09 | PCM.OP.PRO ---
Assessment & Plan Assessment/Plan (1) Acute respiratory failure with hypoxia: (2) Pleural effusion on right: PLAN: Successful removal of 1000 cc. Chest x-ray shows no complications. Fluid was sent for cytology as requested. Okay to go back to the floor and resume usual care. Procedure Report Date of Procedure: 07/09/21 Right-sided thoracentesis Indication: Right pleural effusion Consent was obtained from: Patient A time-out was completed verifying correct patient, procedure, site, positioning, and special equipment if applicable. The patient was placed in appropriate position for thoracentesis. The area of interest was investigated by ultrasound and the position marked. The patient's right chest was prepped and draped in a sterile fashion. 1% lidocaine was used to anesthetize the surrounding skin area. An Angiocath was introduced into the right chest using ultrasound guidance. Approximate 100 cc was removed and sent for cytology. Remaining fluid was removed using automated suction device. A total of 1000 cc of cloudy broderick fluid was removed. Chest x-ray following the procedure showed complete resolution of pleural effusion with only minor fluid left in the fissure. No pneumothorax was appreciated. Formal interpretation is pending. ULTRASOUND GUIDANCE STATEMENT (Vascular Access): Ultrasound image acquisition and interpretation for needle placement during the procedure. The area of interest was identified and noted to be sufficient to proceed. A safe point of entry was marked at the skin in an angle for axis was determined. The catheter was directed in free fluid was noted. Procedures Pulmonary CF Procedures 30xxx-32xxx: [id number] Insert cath pleura w/ image
[2021-07-09 10:20] LABS: Cytology, Body Fluid / CSF SEE PATHOLOGY REPORT
--- NOTE | 2021-07-09 11:56 | PCM.DC ---
Discharge Instructions Diet Discharge Diet: No restrictions Activity Discharge Activity: Return to Normal Activity Weight Bearing Status: Weight bearing as tolerated Dressing / Incision Call your doctor if you observe: Fever of 101 or Higher, Numbness or Tingling, Shortness of breath, Dizziness, Chest pain, Increased palpitations (irregular heartbeat) and Calf discomfort Follow Up Care Please Follow Up With: Primary care provider When: Within the next two weeks. Test Results: Test results from this visit will be discussed in further detail at your follow-up appointment, if applicable. Discharge Plan Admission Admit Date/Time: 07/08/21 08:23 Primary Reason for Your Visit: Shortness of breath Attending Provider: Grgeorio Foster Primary Care Provider: Wes Magallon Instructions Additional Instructions / Restrictions: * Your dose of Metoprolol tartrate has been increased from 50mg twice daily to 75mg twice daily to better control your heart rate. * Take 1.5 tablets of Metoprolol tartrate twice daily. Discharge Orders/Prescriptions Prescriptions: New metoprolol tartrate 50 mg Tablet 75 mg PO BID Qty: 90 RF: 0 Continued multivitamin Tablet 1 tab PO DAILY RF: 0 calcium carbonate 600 mg calcium (1,500 mg) tablet 600 mg PO DAILY RF: 0 furosemide 40 mg tablet 40 mg PO BID RF: 0 (DME) Handicap placard Qty: 1 RF: 0 albuterol sulfate 90 mcg/actuation HFA aerosol inhaler 2 puff INHALATION Q4H PRN (Reason: SOB) RF: 0 omeprazole 40 MG capsule 40 mg PO DAILY RF: 0 warfarin 4 mg tablet 4 mg PO MOWEFR RF: 0 warfarin 4 mg tablet 2 mg PO SUTUTH RF: 0 potassium chloride 20 mEq tablet,ER particles/crystals 20 meq PO BID RF: 0 diltiazem HCl 240 mg capsule,extended release 24hr 240 mg PO DAILY RF: 0 Discontinued metoprolol tartrate 50 mg Tablet 50 mg PO BID Qty: 60 RF: 0 Referrals / Follow Up: Flaquito Mariee MD [STAFF PHYSICIAN] - Within 2 Weeks Wes Magallon MD [Primary Care Provider] - Within 2 Weeks Disposition Disposition (needs filled in before D/C Order can be placed): Home, Self Care
--- NOTE | 2021-07-09 14:25 | PCM.DC.SUM ---
Documented by User: Tom WANG 07/09/21 14:30 Providers Date of Admission: 07/08/21 Primary Care Physician: Dr. Wes Magallon MD Reason For Visit: PLEURAL EFFUSION Diagnosis Discharge Diagnosis (1) Acute respiratory failure with hypoxia: Status: Acute Code(s): J96.01 - Acute respiratory failure with hypoxia (2) Pleural effusion on right: Status: Acute Code(s): J90 - Pleural effusion, not elsewhere classified Medications at Discharge Home Medications omeprazole 40 mg PO DAILY 10/19/14 calcium carbonate 600 mg calcium (1,500 mg) tablet 600 mg PO DAILY 06/19/19 multivitamin 1 tab PO DAILY 06/19/19 furosemide 40 mg tablet 40 mg PO BID tab 11/22/19 Handicap placard #1 ea 01/07/20 warfarin 4 mg tablet 2 mg PO SUTUTHSA 01/07/20 warfarin 4 mg tablet 4 mg PO MOWEFR 01/07/20 albuterol sulfate 90 mcg/actuation aerosol inhaler 2 puff INHALATION Q4H PRN g 01/09/20 diltiazem HCl 240 mg PO DAILY 04/26/21 potassium chloride 20 meq PO BID 04/26/21 metoprolol tartrate 75 mg PO BID #90 tab 07/09/21 Hospital Course Procedures Thoracentesis Summary of Care Provided Minutes Spent on Discharge: 20 Hospital Course: Patient is a 75-year-old female who was admitted to [facility] on 07/07/2021 for evaluation management of shortness of breath and A. fib with RVR. Course of management as below. 1) acute hypoxic respiratory failure secondary to right-sided pleural effusion. Resolved. Patient underwent right-sided thoracentesis on 07/09 which subsequently removed 1 L of fluid, fluid was sent for cytology. Postprocedure chest x-ray did not demonstrate any pneumothorax and patient was satting 96% on room air upon return from procedure. Patient to follow-up with industry analyst and primary care provider within the next 2 weeks for appropriate follow-up. 2) PAF Metoprolol increased to 75 mg p.o. twice daily, Cardizem and Coumadin continued. 3) HFpEF Stable, previous echocardiogram from 04/25 demonstrated normal LV size systolic function and an EF of 55%. Continue home CHF regimen. 4) COPD Stable, not in acute exacerbation. Continue home regimen. 5) HTN Continue Cardizem and metoprolol as above. 6) subtherapeutic INR Was 1.2 on day of discharge although Coumadin had been held in anticipation for thoracentesis which took place on 07/09. Coumadin continued on discharge. Patient seen by Tom Dixon PA-C, under the supervision of Dr. Foster. Time spent on patient care: 20 minutes. Physical Exam Narrative Patient is a 75-year-old female comfortably resting in bed, alert and orient x3. Patient reports significant improvement in her shortness of breath after thoracentesis, denies development of any new symptoms overnight. Does not appear in acute distress. Const alert, oriented x3 and no apparent distress HEENT normocephalic, head/scalp atraumatic and hearing grossly normal bilaterally Eyes PERRL, EOMs intact bilaterally and conjunctivae normal Neck no lymphadenopathy, supple and no JVD Resp normal respiratory effort, no retractions, no use of accessory muscles and clear to auscultation bilaterally Cardio regular rate, no murmurs and no JVD Rhythm: abnormal rhythm GI normal to inspection, nondistended, normoactive bowel sounds, soft to palpation and non-tender Extremity normal to inspection, full ROM and no clubbing, cyanosis or edema Skin no rashes or lesions noted, no wounds and skin turgor normal Neuro CN's II-XII intact bilaterally Psych affect normal Weight / BMI Weight Weight: 130 lb 11.746 oz Body Mass Index (BMI) 24.7 ABG / Lab / Microbiology Data Result Diagrams: 07/09/21 05:28 07/09/21 05:28 Laboratory: Laboratory Results - last 24 hr 07/09/21 05:28: WBC 8.4, RBC 4.44, Hgb 12.5, Hct 38.4, MCV 86.5, MCH 28.2, MCHC 32.6, RDW Std Deviation 48.0 H, RDW Coeff of Angelo 15.3 H, Plt Count 406, MPV 8.9, Immature Gran % (Auto) 0.200, Neut % (Auto) 59.5, Lymph % (Auto) 22.2, [place] % (Auto) 13.8 H, Eos % (Auto) 3.6, Baso % (Auto) 0.7, Absolute Neuts (auto) 5.0, Absolute Lymphs (auto) 1.87, Nucleated RBC % 0 07/09/21 05:28: PT 14.0, INR 1.1 07/09/21 05:28: Sodium 137, Potassium 3.8, Chloride 102, Carbon Dioxide 29.0, Anion Gap 6, BUN 13, Creatinine 0.75, Estim Creat Clear Calc 36.68, Est GFR (MDRD) Af Amer 96, Est GFR (MDRD) Non-Af 79, BUN/Creatinine Ratio 17.2, Glucose 94, Calcium 8.7 Radiography Diagnostic Testing: Radiology Impression Thoracentesis Ultrasound 07/09/21 08:00 IMPRESSION: Ultrasound-guided right thoracentesis. Electronically Signed: Shashi Jacobo MD at 10:29 EST , Chest X-Ray 07/09/21 09:45 IMPRESSION: No evidence of pneumothorax on the post right thoracentesis images. Electronically Signed: Shashi Jacobo MD at 10:30 EST , D/C Instructions Discharge Diet: No restrictions Weight Bearing Status: Weight bearing as tolerated Call your doctor if you observe: Fever of 101 or Higher, Numbness or Tingling, Shortness of breath, Dizziness, Chest pain, Increased palpitations (irregular heartbeat) and Calf discomfort Please Follow Up With: Primary care provider When: Within the next two weeks. Meaningful Use Info Meaningful Use Diagnoses (Choose all that apply): None applicable Discharge Plan Admission Admit Date/Time: 07/08/21 08:23 Primary Reason for Your Visit: Shortness of breath Attending Provider: Gregorio Foster Primary Care Provider: Wes Magallon Instructions Additional Instructions / Restrictions: * Your dose of Metoprolol tartrate has been increased from 50mg twice daily to 75mg twice daily to better control your heart rate. * Take 1.5 tablets of Metoprolol tartrate twice daily. Discharge Orders/Prescriptions Prescriptions: New metoprolol tartrate 50 mg Tablet 75 mg PO BID Qty: 90 RF: 0 Continued multivitamin Tablet 1 tab PO DAILY RF: 0 calcium carbonate 600 mg calcium (1,500 mg) tablet 600 mg PO DAILY RF: 0 furosemide 40 mg tablet 40 mg PO BID RF: 0 (DME) Handicap placard Qty: 1 RF: 0 albuterol sulfate 90 mcg/actuation HFA aerosol inhaler 2 puff INHALATION Q4H PRN (Reason: SOB) RF: 0 omeprazole 40 MG capsule 40 mg PO DAILY RF: 0 warfarin 4 mg tablet 4 mg PO MOWEFR RF: 0 warfarin 4 mg tablet 2 mg PO SUTUTHSA RF: 0 potassium chloride 20 mEq tablet,ER particles/crystals 20 meq PO BID RF: 0 diltiazem HCl 240 mg capsule,extended release 24hr 240 mg PO DAILY RF: 0 Discontinued metoprolol tartrate 50 mg Tablet 50 mg PO BID Qty: 60 RF: 0 Referrals / Follow Up: Flaquito Mariee MD [STAFF PHYSICIAN] - Within 2 Weeks Wes Magallon MD [Primary Care Provider] - Within 2 Weeks Disposition Disposition (needs filled in before D/C Order can be placed): Home, Self Care Documented by User: Dr. Gregorio Foster DO 07/09/21 17:31 Providers Date of Admission: 07/08/21 Reason For Visit: PLEURAL EFFUSION Medications at Discharge Home Medications omeprazole 40 mg PO DAILY 10/19/14 calcium carbonate 600 mg calcium (1,500 mg) tablet 600 mg PO DAILY 06/19/19 multivitamin 1 tab PO DAILY 06/19/19 furosemide 40 mg tablet 40 mg PO BID tab 11/22/19 Handicap placard #1 ea 01/07/20 warfarin 4 mg tablet 2 mg PO SUTUTHSA 01/07/20 warfarin 4 mg tablet 4 mg PO MOWEFR 01/07/20 albuterol sulfate 90 mcg/actuation aerosol inhaler 2 puff INHALATION Q4H PRN g 01/09/20 diltiazem HCl 240 mg PO DAILY 11/22/21 potassium chloride 20 meq PO BID 04/26/21 metoprolol tartrate 75 mg PO BID #90 tab 07/09/21 ABG / Lab / Microbiology Data Result Diagrams: 07/09/21 05:28 07/09/21 05:28 Discharge Plan Admission Admit Date/Time: 07/08/21 08:23 Primary Reason for Your Visit: Shortness of breath Attending Provider: Gregorio Foster Primary Care Provider: Wes Magallon Instructions Additional Instructions / Restrictions: * Your dose of Metoprolol tartrate has been increased from 50mg twice daily to 75mg twice daily to better control your heart rate. * Take 1.5 tablets of Metoprolol tartrate twice daily. Discharge Orders/Prescriptions Prescriptions: New metoprolol tartrate 50 mg Tablet 75 mg PO BID Qty: 90 RF: 0 Continued multivitamin Tablet 1 tab PO DAILY RF: 0 calcium carbonate 600 mg calcium (1,500 mg) tablet 600 mg PO DAILY RF: 0 furosemide 40 mg tablet 40 mg PO BID RF: 0 (DME) Handicap placard Qty: 1 RF: 0 albuterol sulfate 90 mcg/actuation HFA aerosol inhaler 2 puff INHALATION Q4H PRN (Reason: SOB) RF: 0 omeprazole 40 MG capsule 40 mg PO DAILY RF: 0 warfarin 4 mg tablet 4 mg PO MOWEFR RF: 0 warfarin 4 mg tablet 2 mg PO SUTUTHSA RF: 0 potassium chloride 20 mEq tablet,ER particles/crystals 20 meq PO BID RF: 0 diltiazem HCl 240 mg capsule,extended release 24hr 240 mg PO DAILY RF: 0 Discontinued metoprolol tartrate 50 mg Tablet 50 mg PO BID Qty: 60 RF: 0 Referrals / Follow Up: Flaquito Mariee MD [STAFF PHYSICIAN] - Within 2 Weeks Wes Magallon MD [Primary Care Provider] - Within 2 Weeks Disposition Disposition (needs filled in before D/C Order can be placed): Home, Self Care Charges/Coding Addendum Addendum: Patient was seen and examined today independently of Tom Dixon, she underwent a thoracentesis today with removal of approximately 1000 cc of fluid from the right chest cavity, she had no untoward events from the procedure. Patient was weaned off her oxygen, her heart rate appears to have stabilized on her current medications. On examination she appeared in good health and spirits, she does not appear to be in any distress. Vital signs as documented. Skin warm and dry and without overt rashes. Neck without JVD, thyroid appears normal, trachea is midline, neck is supple. Lungs clear, normal air movement was noted. Heart exam notable for irregular rhythm, normal sounds and absence of murmurs, rubs or gallops. Abdomen unremarkable and without evidence of organomegaly, masses, or abdominal aortic enlargement, bowel sounds are present in all 4 quadrants, no abdominal tenderness was noted. Extremities nonedematous, no cyanosis was noted, no clubbing was noted. Neuro: Cranial nerves II through XII are grossly intact, no focal motor deficits were noted, sensation to light touch and pinprick is intact, motor exam 5/5 throughout. Psych: Patient is alert and oriented x3, she does not appear anxious or depressed, she does not appear agitated. Impression #1 chronic atrial fibrillation with rapid ventricular response #2 chronic right pleural effusion-etiology unclear #3 Acute hypoxia-probably secondary to chronic right pleural effusion #4 chronic obstructive pulmonary disease I have reviewed Tom Dixon's discharge summary including his medical assessment and plan of care and with the above additions endorse it. Total clinical time spent by myself addressing the patient's medical issues, reviewing all of her data, and collaboration with the patient's care team: 25 minutes Visit Charges Inpatient E&M: [id number] Disch Hosp
== END 2021-07-09 14:41 | disposition home or self-care (01) | DRG 186 ==
LOC: ED 18:42 → PCU 19:17
PROVIDERS: Physician Assistant; Admitting Provider Internal Medicine; Emergency Provider Emergency Medicine; PCP Family Medicine; Visit Provider Internal Medicine
DX: J90 Pleural effusion, not elsewhere classified (principal); J96.01 Acute respiratory failure with hypoxia; I50.32 Chronic diastolic (congestive) heart failure; Q87.40 Marfan syndrome, unspecified; I48.0 Paroxysmal atrial fibrillation; J44.9 Chronic obstructive pulmonary disease, unspecified; I27.20 Pulmonary hypertension, unspecified; I11.0 Hypertensive heart disease with heart failure; M06.9 Rheumatoid arthritis, unspecified; Z79.01 Long term (current) use of anticoagulants; Z87.01 Personal history of pneumonia (recurrent); Z79.899 Other long term (current) 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; R79.1 Abnormal coagulation profile
CPT/HCPCS: 32555; 36415; 71045; 71046; 80048; 80053; 80076; 83735; 83880; 84484; 85025; 85610; 88108; 88305; 88313; 93005; 97162; 97165; 97802; 99251; 99285; A4216; G0463; J1940

== ENCOUNTER 2021-07-14 09:54 | Inpatient (IN) | payer MEDICARE, SELFPAY ==
[2021-07-14] VITALS (14 sets, daily range): BP systolic 84–143; BP diastolic 51–102; PULSE 84–150; RESP 16–28; TEMP 36.6–36.9; O2SAT 88–98; BMI 25.1; BMI 26.4
--- NOTE | 2021-07-14 10:07 | EX.ED.DYSGE1 ---
HPI History of Present Illness Chief Complaint: Abd Pain Informant: patient Narrative Narrative: Patient presents with primary complaint of left-sided abdominal pain. However, patient actually has multiple symptoms. About 3 to 4 days ago she started with cough. She has had myalgias. She has felt cold but no fevers. She did have some nasal congestion. She had mild sore throat that is gone. She has had some nausea and soft stools but no vomiting. She states she has not eaten for a day or 2 just because she was afraid it would worsen her symptoms. She states she has some soreness toward the left upper quadrant. She describes it like a stomachache.. Nothing really makes his better or worse. She was exposed to Covid as her son had this about 2 weeks ago. She has not had any vaccines. Also, she did not get any of her medications in today. She does note her heart rate being up but it was okay until she did get her meds she feels. [facility] Medical History Atrial fibrillation Chronic anticoagulation Congestive heart failure (CHF) COPD (chronic obstructive pulmonary disease) COPD (chronic obstructive pulmonary disease) GERD (gastroesophageal reflux disease) Goiter HLD (hyperlipidemia) HTN (hypertension) Hypertension Hypokalemia Hyponatremia Marfans syndrome Non-smoker PAF (paroxysmal atrial fibrillation) Paroxysmal atrial fibrillation with RVR Pleural effusion PNA (pneumonia) Pulmonary hypertension Rheumatoid arthritis Rheumatoid arthritis Substance abuse Subtherapeutic international normalized ratio (INR) Home Medications omeprazole 40 mg PO DAILY 10/19/14 [History Last Taken 07/13/21] calcium carbonate 600 mg calcium (1,500 mg) tablet 600 mg PO DAILY 06/19/19 [History Last Taken 07/12/21] multivitamin 1 tab PO DAILY 06/19/19 [History Last Taken 07/12/21] furosemide 40 mg tablet 40 mg PO BID tab 11/22/19 [History Last Taken 07/13/21] Handicap placard #1 ea 01/07/20 [Rx Last Taken Unknown] warfarin 4 mg tablet 2 mg PO SUTUTHSA 01/07/20 [History Last Taken 07/13/21] warfarin 4 mg tablet 4 mg PO MOWEFR 01/07/20 [History Last Taken 07/12/21] albuterol sulfate 90 mcg/actuation aerosol inhaler 2 puff INHALATION Q4H PRN g 01/09/20 [History Last Taken 1 Week Ago ~06/30/21] diltiazem HCl 240 mg PO DAILY 04/26/21 [History Last Taken 07/14/21] potassium chloride 20 meq PO BID 04/26/21 [History Last Taken 07/13/21] metoprolol tartrate 75 mg PO BID #90 tab 07/09/21 [Rx Last Taken 07/14/21] atenolol 100 mg PO DAILY 07/14/21 [History Last Taken Unknown] Allergy/AdvReac Type Severity Reaction Status Date / Time pneumococcal vaccine Allergy Severe Rash Verified 07/14/21 09:59 [From Prevnar 13 (PF)] Latex, Natural Rubber Allergy Rash Verified 07/14/21 09:59 rosuvastatin calcium Allergy myalgias Verified 07/14/21 09:59 [From Crestor] ibuprofen AdvReac Nausea Verified 07/14/21 09:59 Family History Mother Diabetes Colon cancer Marfan syndrome Sister Diabetes Hypertension Brother Marfan syndrome COPD (chronic obstructive pulmonary disease) Brother Marfan syndrome Father Gastric ulcer GERD (gastroesophageal reflux disease) Surgical History History of eye surgery History of hysterectomy Social History household members: spouse housing: other details: They take care of their handicap son who also lives with them. Smoking Status: Never smoker alcohol intake: never substance use type: does not use caffeine: Yes Type: coffee Number of servings: 4 ROS ROS ED Constitutional Constitutional ED: Reports chills; Denies fever(s) or sweats Eyes Eyes: Denies blurry vision ENT ENT ED: Reports rhinorrhea and sore throat Cardiovascular Cardiovascular: Reports palpitations; Denies chest pain Respiratory/Chest Respiratory/Chest: Reports cough; Denies dyspnea or sputum Gastrointestinal Gastrointestinal: Reports abdominal pain, diarrhea and nausea; Denies constipation, melena or vomiting Genitourinary Genitourinary ED: Denies dysuria or hematuria Musculoskeletal Musculoskeletal: Reports myalgias Integumentary Denies rash Neurologic Neurologic: Denies headache(s) Endocrine Endocrinology: Denies polydipsia or polyuria Allergic/Immunologic Allergic/Immunologic ED: Denies mouth swelling or urticaria EXAM Physical Exam Const Vital Signs: 07/14/21 09:55 07/14/21 10:57 07/14/21 10:58 Temperature 98.3 F Temperature Source Oral Pulse Rate 150 H 129 H Respiratory Rate 20 H 22 H Blood Pressure 143/102 H 133/82 H Blood Pressure Mean 115 99 Pulse Ox 93 88 96 Oxygen Delivery Method Room Air Room Air Nasal Cannula Oxygen Flow Rate (L/min) 2 07/14/21 11:20 07/14/21 13:51 Temperature 98 F Temperature Source Temporal Pulse Rate 130 H 118 H Respiratory Rate 26 H 28 H Blood Pressure 143/99 H 121/79 H Blood Pressure Mean 113 93 Pulse Ox 98 98 Oxygen Delivery Method Nasal Cannula Nasal Cannula Oxygen Flow Rate (L/min) 2 2 Patient does look a bit tired. However she is awake alert appropriate and nontoxic. She does have an increased heart rate running about 1 35-1 40 at this time. Positive well nourished and well developed General Appearance ED: well developed and NAD; Negative for cyanotic or diaphoretic HEENT Reports dry mucous membranes HEENT Narrative: Mildly dry mucous membranes Mouth ED: Yes dry mucous membranes Mouth: dry mucous membranes Eyes General Eye ED: Negative for pale conjunctiva or scleral icterus Neck no JVD Chest Wall inspection of chest normal Resp normal respiratory effort and clear to auscultation bilaterally Resp Narrative: Patient does not take real deep breaths but her lungs do sound clear. Effort and Inspection: Negative for pain with movement Auscultation: Negative for rales, rhonchi or wheezes Cardio Negative for regular rate or regular rhythm Rate: tachycardic Rhythm: abnormal rhythm GI normal to inspection, nondistended, normoactive bowel sounds and non-distended GI Narrative: Mild tenderness toward the left upper quadrant but no rebound or guarding. Palpation: soft Back/Spine no CVA tenderness Extremity normal to inspection Extremity Narrative: Few contusions consistent with her Coumadin use. General Extremety ED: Negative for edema or tenderness General Extremity: Negative for edema Neuro oriented x3 Sensorium / Orientation: alert Psych mental status grossly normal Skin Skin Narrative: Few abrasions and contusions. General Skin Exam: Negative for jaundice MDM MDM MDM Narrative Medical decision making narrative: Patient's blood work shows 20,000 white count. Lactate is normal. Hemoglobin is normal. BUN and creatinine are okay. She does have a rise of her liver function test slightly. INR is above baseline but not fully therapeutic at 1.5. Troponin is negative. I rechecked the patient. She describes the pain clearly over on the left side. This is not over in the biliary region. With her multiple symptoms with cough and abdominal pain high white count we will scan her chest abdomen and pelvis. Her Covid came back negative although she has symptoms that could be consistent with that. Her heart rate is down slightly. We will get her some IV fluids that she has not been drinking and may be clinically dry. She has not yet urinated. Patient is given fluids and her heart rate is now down to about 110. We added CT scan. There is no sign of pulmonary embolus. However there is reaccumulation of some effusion on the right. There is also sign of likely embolic infarction of kidney and spleen. Patient did have to hold Coumadin for her thoracentesis. It is possible she formed a clot during that time. Her INR is rising but is still not fully therapeutic. We will start heparin drip. I discussed the case with the patient. I think with her complex history, findings, pain, not taking p.o. that it is appropriate she comes in the hospital. I also discussed case with hospitalist. Lab Data Attestation: I reviewed the patient's lab results. Labs: Laboratory Results - last 24 hr 07/14/21 07/14/21 07/14/21 10:20 10:24 10:24 WBC 20.3 H RBC 5.11 Hgb 14.0 Hct 43.0 MCV 84.1 MCH 27.4 MCHC 32.6 RDW Std Deviation 46.1 H RDW Coeff of Angelo 15.2 H Plt Count 388 MPV 8.9 Immature Gran % (Auto) 0.500 Neut % (Auto) 85.2 H Lymph % (Auto) 3.9 L Iron % (Auto) 10.2 H Eos % (Auto) 0.0 Baso % (Auto) 0.2 Absolute Neuts (auto) 17.3 H Absolute Lymphs (auto) 0.80 L Nucleated RBC % 0 [address] Review Reviewed PT Cancelled INR Cancelled APTT Sodium Potassium Chloride Carbon Dioxide Anion Gap BUN Creatinine Estim Creat Clear Calc Est GFR (MDRD) Af Amer Est GFR (MDRD) Non-Af BUN/Creatinine Ratio Glucose Lactic Acid 1.2 Calcium Total Bilirubin AST ALT Alkaline Phosphatase Troponin I High Sens Total Protein Albumin Globulin Albumin/Globulin Ratio Lipase Urine Color Urine Clarity Urine pH Ur Specific Newcomb Urine Protein Urine Glucose (UA) Urine Ketones Urine Occult Blood Urine Nitrite Urine Bilirubin Urine Urobilinogen Ur Leukocyte Esterase Urine RBC Urine WBC Ur Squamous Epith Cells Urine Bacteria Urine Mucus 07/14/21 07/14/21 07/14/21 10:24 10:55 13:50 WBC RBC Hgb Hct MCV MCH MCHC RDW Std Deviation RDW Coeff of Angelo Plt Count MPV Immature Gran % (Auto) Neut % (Auto) Lymph % (Auto) Iron % (Auto) Eos % (Auto) Baso % (Auto) Absolute Neuts (auto) Absolute Lymphs (auto) Nucleated RBC % Diff Path Review PT 17.6 H INR 1.5 APTT 34.5 Sodium 131 L Potassium 3.8 Chloride 95 L Carbon Dioxide 29.0 Anion Gap 7 BUN 11 Creatinine 0.93 Estim Creat Clear Calc 39.44 Est GFR (MDRD) Af Amer 76 Est GFR (MDRD) Non-Af 63 BUN/Creatinine Ratio 11.9 Glucose 133 H Lactic Acid Calcium 9.1 Total Bilirubin 1.10 H AST 180 H ALT 95 H Alkaline Phosphatase 126 H Troponin I High Sens 7 Total Protein 8.3 H Albumin 3.3 Globulin 5.0 H Albumin/Globulin Ratio 0.7 L Lipase 74 Urine Color Deena Urine Clarity Sl. Cloudy Urine pH 6.5 Ur Specific Newcomb 1.010 Urine Protein 100 H Urine Glucose (UA) Normal Urine Ketones 5 H Urine Occult Blood 250 H Urine Nitrite Negative Urine Bilirubin Negative Urine Urobilinogen 4 H Ur Leukocyte Esterase 25 H Urine RBC 0-5 SEEN Urine WBC 0-5 SEEN Ur Squamous Epith Cells 5-10 SEEN Urine Bacteria RARE Urine Mucus 0 SEEN Radiography Diagnostic Testing: Clinical Impression(s) from Imaging Studies Abdomen/Pelvis CT 07/14/21 11:23 IMPRESSION: 1. Dilated main and bilateral pulmonary arteries centrally suggesting pulmonary hypertension. No thoracic aortic aneurysm. No central or segmental pulmonary embolism. 2. Moderate volume right pleural effusion with compressive atelectasis involving the right lower lobe. 3. Moderate cardiomegaly with dilated right ventricle and reflux of contrast the IVC suggesting right heart dysfunction. 4. Heterogeneous enhancement and decreased density of the lateral left kidney, NEW since CTA 01/03/2014. May represent renal ischemia/infarction versus pyelonephritis. Neoplasm is also the differential diagnosis. 5. 2.9 cm superior and lateral left renal cyst with delayed peripheral nodular enhancement best seen on image 3 of series 6, suspicious for cystic renal neoplasm. ACR White Paper guidelines (Herts, et al. JACR 2018; 15(2):264-273) recommend MRI or CT without and with intravenous contrast. 6. Splenic infarction. Given suspected left renal and splenic infarctions, embolic etiology should be considered. Electronically Signed: Reg Fontanez MD ([place]) at 12:33 EST , Chest CTA 07/14/21 11:23 IMPRESSION: 1. Dilated main and bilateral pulmonary arteries centrally suggesting pulmonary hypertension. No thoracic aortic aneurysm. No central or segmental pulmonary embolism. 2. Moderate volume right pleural effusion with compressive atelectasis involving the right lower lobe. 3. Moderate cardiomegaly with dilated right ventricle and reflux of contrast the IVC suggesting right heart dysfunction. 4. Heterogeneous enhancement and decreased density of the lateral left kidney, NEW since CTA 01/03/2014. May represent renal ischemia/infarction versus pyelonephritis. Neoplasm is also the differential diagnosis. 5. 2.9 cm superior and lateral left renal cyst with delayed peripheral nodular enhancement best seen on image 3 of series 6, suspicious for cystic renal neoplasm. ACR White Paper guidelines (Herts, et al. JACR 2018; 15(2):264-273) recommend MRI or CT without and with intravenous contrast. 6. Splenic infarction. Given suspected left renal and splenic infarctions, embolic etiology should be considered. Electronically Signed: Reg Fontanez MD ([place]) at 12:32 EST , EKG Initial EKG: Comments: EKG done for tachycardia read by me shows atrial fibrillation with tachycardic rate at 139. No ventricular ectopy is noted. No acute ST elevation or significant depression. She does have some diffuse nonspecific ST and T wave changes. QRS duration and QTc are normal. She does have a known history of atrial fibrillation. Discharge Plan Triage Chief Complaint: Abd Pain ED Provider: Luis Hall Dx/Rx/DC Orders Clinical Impression: Splenic infarction, Renal infarction, Embolic infarction, Leukocytosis Primary Care Provider: Wes Magallon Disposition Disposition: Acute Care Hospital [facility]
--- NOTE | 2021-07-14 10:21 | EKG12_ITS ---
Test Reason : ABPAIN Blood Pressure : / mmHG Vent. Rate : 139 BPM Atrial Rate : 107 BPM P-R Int : 000 ms QRS Dur : 072 ms QT Int : 270 ms P-R-T Axes : 000 067 -07 degrees QTc Int : 410 ms Atrial fibrillation Abnormal ECG Confirmed by EDWARD MARKS, REJI ([id number]), video editor NIRAV VENTURA ([id number]) on 07/15/2021 9:51:55 AM Referred By: Confirmed By:REJI LEON MD
[2021-07-14] MEDS: Ondansetron 4 MG/2 ML Vial IV (10:30)
[2021-07-14 10:35] LABS: Absolute Neutrophil Count 17.3 X10^3/uL (2.0-7.7); Basophil# 0.04 X10^3/uL; Basophil% 0.2 % (0-1); Eosinophil# 0.01 X10^3/uL; Lymphocyte % 3.9 % (19-41); Mean Corp Hgb Conc 32.6 g/dL (32-36); Mean Corpuscular Hgb 27.4 pg (27.0-32.0); Mean Corpuscular Volume 84.1 fL (81-99); Mean Platelet Vol. 8.9 fl (6.2-12.0); Monocyte# 2.08 X10^3/uL; Monocyte% 10.2 % (0-10); NRBC Flagged by Analyzer 0 % (0-5); Neutrophil # 17.26 X10^3/uL (2.7-7.7); Neutrophil % 85.2 % (47-70); POSITIVE DIFFERENTIAL YES; Platelet Count 388 K/mm3 (150-450); RBC Distribution Width CV 15.2 % (11.6-14.6); RBC Distribution Width SD 46.1 fl (35.1-43.9); Red Blood Count 5.11 M/mm3 (4.2-5.4); White Blood Count 20.3 K/mm3 (4.4-11.0)
[2021-07-14 10:37] LABS: Differential Indicated SCAN CRITERIA MET
--- NOTE | 2021-07-14 10:40 | NURSING ---
PT HEMOLIZED, NEEDS REDRAWN
[2021-07-14 10:57] LABS: ALB/GLOB Ratio 0.7 RATIO (0.9-2.4); AST(SGOT) 180 U/L (15-37); Alanine Aminotransfer ALT/SGPT 95 U/L (13-56); Albumin, Serum 3.3 g/dL (3.2-5.0); Alkaline Phosphatase 126 U/L (45-117); Anion Gap 7 (5-15); BUN 11 mg/dL (7-18); BUN/Creat Ratio 11.9 RATIO (10-20); Calcium,Total 9.1 mg/dL (8.5-10.1); Chloride 95 mmol/L (98-107); Creatinine, Serum 0.93 mg/dL (0.55-1.02); EST Glomerular Filtration Rate 63 mL/min (>60); Est Glom Filt Rate - Afr Amer 76 mL/min (>60); Estimated Creatinine Clearance 39.44 ml/min; Glucose 133 mg/dL (74-106); Lipase 74 U/L (73-393); Potassium 3.8 mmol/L (3.5-5.1); Protein, Total 8.3 g/dL (6.4-8.2); Sodium Level 131 mmol/L (136-145); Troponin-I HS 7 pg/mL (3.0-54.0)
[2021-07-14] MEDS: Metoprolol Tartrate 25 MG Tablet PO (10:57)
[2021-07-14] MEDS: dilTIAZem CD 240 MG Capsule PO (10:57)
[2021-07-14 11:20] LABS: International Normalized Ratio 1.5; Prothrombin Time (Protime)PT. 17.6 SECONDS (11.7-14.9)
[2021-07-14 11:20] LABS: Lactic Acid 1.2 mmol/L (0.4-1.9)
--- NOTE | 2021-07-14 11:23 | CT_ITS ---
EXAM: CT ANGIOGRAPHY CHEST AND CT ABDOMEN AND PELVIS WITH INTRAVENOUS CONTRAST CLINICAL INDICATION: pe TECHNIQUE: Helically acquired angiography images of the chest per pulmonary angiogram protocol and helically acquired images of the abdomen and pelvis without and with intravenous contrast. This CT exam was performed using one or more of the following dose reduction techniques: automated exposure control, adjustment of the mA and/or kV according to patient size, and/or use of iterative reconstruction technique. This report was created using [employer] report generation technology. Delayed imaging was performed. MIP reconstructed images were created and reviewed. Coronal and sagittal reformatted images were created and reviewed. CONTRAST: IV 100mL Isovue-370 COMPARISON: CTA chest 01/03/2014. FINDINGS: CHEST: PULMONARY ARTERIES: Dilated main and bilateral pulmonary arteries centrally suggesting pulmonary hypertension. No pulmonary embolism. AORTA: Unremarkable. Normal in caliber. No evidence of dissection. GREAT VESSELS OF AORTIC ARCH: Unremarkable. Normal in caliber. No evidence of dissection. LUNGS AND PLEURAL SPACES: Moderate volume right pleural effusion with compressive atelectasis involving the right lower lobe. No mass. No pneumothorax. HEART: Moderate cardiomegaly with dilated right ventricle and reflux of contrast the IVC suggesting right heart dysfunction. Mitral valve calcifications. No pericardial effusion. MEDIASTINUM: Unremarkable. No mediastinal or hilar adenopathy. Esophagus is unremarkable. No hiatal hernia. THYROID: Unremarkable. No thyroid lesions. ABDOMEN: LIVER: Simple nonenhancing cysts of the right hepatic lobe. No required imaging follow-up needed given high likelihood of benign nature. GALLBLADDER AND BILE DUCTS: Unremarkable. No calcified gallstones. No gallbladder distention or wall edema. No intra- or extrahepatic biliary ductal dilation. PANCREAS: Unremarkable. No focal cystic or solid mass. SPLEEN: Wedge-shaped defect of the spleen is seen on image 19 of series 3. ADRENALS: Unremarkable. No nodules. KIDNEYS AND URETERS: Heterogeneous enhancement and decreased density of the lateral left kidney, new since CTA 01/03/2014. 2.9 cm superior and lateral left renal cyst with delayed peripheral nodular enhancement best seen on image 3 of series 6, suspicious for cystic renal neoplasm. Normal renal size and position. No hydronephrosis. STOMACH AND BOWEL: Fecal and urinary retention of the colon. No colon wall thickening. No stomach or bowel distention. PELVIS: APPENDIX: The appendix is not seen. BLADDER: Unremarkable. REPRODUCTIVE: Unremarkable as visualized. No mass. CHEST, ABDOMEN and PELVIS: INTRAPERITONEAL SPACE: Urinary bladder is not well-distended and does protrude posteriorly, simulating pelvic free fluid. No free air. BONES/JOINTS: Multiple perineural cysts of the sacrum. No suspicious lytic or blastic abnormality. SOFT TISSUES: Unremarkable. No discrete abdominal or pelvic wall hernia. VASCULATURE: Atherosclerosis of the thoracic aorta with ascending thoracic aortic tortuosity but no evidence of thoracic aortic aneurysm. Atherosclerosis of the abdominal aorta and iliofemoral arteries. LYMPH NODES: Unremarkable. No enlarged lymph nodes. CT/Abdomen/Pelvis W IV Cont ONLY IMPRESSION: 1. Dilated main and bilateral pulmonary arteries centrally suggesting pulmonary hypertension. No thoracic aortic aneurysm. No central or segmental pulmonary embolism. 2. Moderate volume right pleural effusion with compressive atelectasis involving the right lower lobe. 3. Moderate cardiomegaly with dilated right ventricle and reflux of contrast the IVC suggesting right heart dysfunction. 4. Heterogeneous enhancement and decreased density of the lateral left kidney, NEW since CTA 01/03/2014. May represent renal ischemia/infarction versus pyelonephritis. Neoplasm is also the differential diagnosis. 5. 2.9 cm superior and lateral left renal cyst with delayed peripheral nodular enhancement best seen on image 3 of series 6, suspicious for cystic renal neoplasm. ACR White Paper guidelines (Herts, et al. JACR 2018; 15(2):264-273) recommend MRI or CT without and with intravenous contrast. 6. Splenic infarction. Given suspected left renal and splenic infarctions, embolic etiology should be considered. Electronically Signed: Reg Fontanez MD ([place]) at 12:33 EST Reading Location ID and State: [address] [place] [address] , Service support ,
--- NOTE | 2021-07-14 11:23 | CT_ITS ---
EXAM: CT ANGIOGRAPHY CHEST AND CT ABDOMEN AND PELVIS WITH INTRAVENOUS CONTRAST CLINICAL INDICATION: pe TECHNIQUE: Helically acquired angiography images of the chest per pulmonary angiogram protocol and helically acquired images of the abdomen and pelvis without and with intravenous contrast. This CT exam was performed using one or more of the following dose reduction techniques: automated exposure control, adjustment of the mA and/or kV according to patient size, and/or use of iterative reconstruction technique. This report was created using [email or web address] report generation technology. Delayed imaging was performed. MIP reconstructed images were created and reviewed. Coronal and sagittal reformatted images were created and reviewed. CONTRAST: IV 100mL Isovue-370 COMPARISON: CTA chest 01/03/2014. FINDINGS: CHEST: PULMONARY ARTERIES: Dilated main and bilateral pulmonary arteries centrally suggesting pulmonary hypertension. No pulmonary embolism. AORTA: Unremarkable. Normal in caliber. No evidence of dissection. GREAT VESSELS OF AORTIC ARCH: Unremarkable. Normal in caliber. No evidence of dissection. LUNGS AND PLEURAL SPACES: Moderate volume right pleural effusion with compressive atelectasis involving the right lower lobe. No mass. No pneumothorax. HEART: Moderate cardiomegaly with dilated right ventricle and reflux of contrast the IVC suggesting right heart dysfunction. Mitral valve calcifications. No pericardial effusion. MEDIASTINUM: Unremarkable. No mediastinal or hilar adenopathy. Esophagus is unremarkable. No hiatal hernia. THYROID: Unremarkable. No thyroid lesions. ABDOMEN: LIVER: Simple nonenhancing cysts of the right hepatic lobe. No required imaging follow-up needed given high likelihood of benign nature. GALLBLADDER AND BILE DUCTS: Unremarkable. No calcified gallstones. No gallbladder distention or wall edema. No intra- or extrahepatic biliary ductal dilation. PANCREAS: Unremarkable. No focal cystic or solid mass. SPLEEN: Wedge-shaped defect of the spleen is seen on image 19 of series 3. ADRENALS: Unremarkable. No nodules. KIDNEYS AND URETERS: Heterogeneous enhancement and decreased density of the lateral left kidney, new since CTA 01/03/2014. 2.9 cm superior and lateral left renal cyst with delayed peripheral nodular enhancement best seen on image 3 of series 6, suspicious for cystic renal neoplasm. Normal renal size and position. No hydronephrosis. STOMACH AND BOWEL: Fecal and urinary retention of the colon. No colon wall thickening. No stomach or bowel distention. PELVIS: APPENDIX: The appendix is not seen. BLADDER: Unremarkable. REPRODUCTIVE: Unremarkable as visualized. No mass. CHEST, ABDOMEN and PELVIS: INTRAPERITONEAL SPACE: Urinary bladder is not well-distended and does protrude posteriorly, simulating pelvic free fluid. No free air. BONES/JOINTS: Multiple perineural cysts of the sacrum. No suspicious lytic or blastic abnormality. SOFT TISSUES: Unremarkable. No discrete abdominal or pelvic wall hernia. VASCULATURE: Atherosclerosis of the thoracic aorta with ascending thoracic aortic tortuosity but no evidence of thoracic aortic aneurysm. Atherosclerosis of the abdominal aorta and iliofemoral arteries. LYMPH NODES: Unremarkable. No enlarged lymph nodes. CT/CTA Chest W/WO Contrast IMPRESSION: 1. Dilated main and bilateral pulmonary arteries centrally suggesting pulmonary hypertension. No thoracic aortic aneurysm. No central or segmental pulmonary embolism. 2. Moderate volume right pleural effusion with compressive atelectasis involving the right lower lobe. 3. Moderate cardiomegaly with dilated right ventricle and reflux of contrast the IVC suggesting right heart dysfunction. 4. Heterogeneous enhancement and decreased density of the lateral left kidney, NEW since CTA 01/03/2014. May represent renal ischemia/infarction versus pyelonephritis. Neoplasm is also the differential diagnosis. 5. 2.9 cm superior and lateral left renal cyst with delayed peripheral nodular enhancement best seen on image 3 of series 6, suspicious for cystic renal neoplasm. ACR White Paper guidelines (Herts, et al. JACR 2018; 15(2):264-273) recommend MRI or CT without and with intravenous contrast. 6. Splenic infarction. Given suspected left renal and splenic infarctions, embolic etiology should be considered. Electronically Signed: Reg Fontanez MD ([place]) at 12:32 EST Reading Location ID and State: [address] [place] [address] , Service support ,
[2021-07-14] MEDS: 0.9% Normal Saline 1,000 ML 999 ML IV (12:34)
--- NOTE | 2021-07-14 12:57 | ED.RN ---
daughter called in for pt update.
--- NOTE | 2021-07-14 13:40 | NURSING ---
DR DEREK ASHER
[2021-07-14 13:53] LABS: Color, Urine Amber (Yellow); Glucose, Dipstick Normal (Normal); Ketone-Dipstick 5 mg/dl (Negative); Leukocyte Esterase-Dipstick 25 /ul (Negative); Mucous, Urine 0 SEEN /hpf (<or=2+); Nitrite-Dipstick Negative (Negative); Occult Blood-Urine 250 /ul (Negative); Protein-Dipstick 100 mg/dl (Negative); Urine Bilirubin Dipstick Negative (Negative); Urine Clarity Sl. Cloudy (Clear); Urine Urobilinogen 4 mg/dl (Normal); Urine pH 6.5 (5.0 - 8.0)
--- NOTE | 2021-07-14 13:58 | NURSING ---
[facility]
[2021-07-14 14:03] LABS: Bacteria RARE /hpf (None Seen); Red Blood Cells-Urine 0-5 SEEN /hpf (0-5); Squamous Epithelial Cells - UA 5-10 SEEN /hpf (5-10); White Blood Cells 0-5 SEEN /hpf (0-5)
[2021-07-14 14:04] LABS: Pathologist Review Reviewed
--- NOTE | 2021-07-14 14:10 | CASEMGMT ---
PEYTON TONY Assessment: RN CM to room to meet with patient for initial transition planning/care coordination assessment. PEYTON TONY introduced self and role at [facility]. Patient voices understanding and consents to assessment at this time. No visitors present at bedside. Patient is alert and oriented and answers all questions appropriately, sitting up on ER cart with oxygen per NC. Care providers, pharmacy, and demographics verified/updated at this time. Admitting Dx: Splenic and renal infarcts PCP: Wes Magallon Specialists: Kodi- pulmonology, Corina- cardiology Preferred Pharmacy: [facility] Insurance: [employer] Prescription Benefit: yes Living Will/HPOA: Patient denies having a living will or HPOA. LNOK: and daughters Airam Beck and Elle Fishman Living Arrangements: Patient lives with , two sons, daughter and grandson in two story house with 4 steps to enter with a handrail present. Patient states independent with ADLs prior to hospitalization but admits she is not very active, only walking short distances. Patient typically ambulates independently without the use of an assistive device but reports feeling weak today. Smoking/ETOH: Never smoker, denies ETOH use Transportation: Patient does not drive. Patient's and children drive patient and patient denies transportation concerns. DME/HHC/SNF: Patient has a shower chair, hand-held shower and cane available in the home. Patient denies need for additional DME at this time. Patient does not have home oxygen or a pulse oximeter. Patient takes Coumadin for chronic atrial fibrillation. Denies previous HHC or SNF stays. Patient has no concerns with going home at time of discharge and will consider HHC. CM to follow for any discharge planning/needs. Patient voices no concerns/needs at this time. Advised patient to ask for CM if any questions/concerns/needs arise. Voices understanding. Plan: home, follow for HHC needs
[2021-07-14] MEDS: Heparin Injection (Vial) 5,000 UNIT/ML VIAL IV (14:28)
[2021-07-14] MEDS: HEPARIN/D5w 25,000 UNITS 25,000 UNITS/250 ML IV.SOLN. 8 UNITS IV (14:28)
[2021-07-14 14:34] LABS: Partial Thromboplast Time 34.5 Seconds (24.1-36.2)
--- NOTE | 2021-07-14 15:47 | ECHOD_ITS ---
Reason For Study: CHF` Procedure This was a 2D Doppler, Color Flow transthoracic echocardiogram. Limited valvular info d/t Previous echo on 04/27/21 and heart rate into 160's. Exam performed portable in patient room. Left Ventricle Normal left ventricle. The estimated ejection fraction is 60-65 %. Right Ventricle Normal right ventricle. Normal systolic function. Atria The left atrium is moderately enlarged. The right atrium is mildly enlarged. Mitral Valve There is moderate mitral annular calcification. Mild-Moderate (1-2+) mitral valve insufficiency. Tricuspid Valve Normal tricuspid valve. Aortic Valve Mild diffuse aortic valve calcification. Pulmonic Valve The pulmonic valve is not well visualized. Great Vessels Normal aortic root. Pericardium/Pleural No pericardial effusion. MMode/2D Measurements & Calculations LVIDd: 3.1 cm IVSd: 0.99 cm Ao root diam: 3.3 cm LVIDs: 2.0 cm LVPWd: 1.1 cm RVDd: 3.9 cm FS: 37.6 % LAV(MOD-bp): 106.3 ml LVAd ap4: 14.6 cm2 LVAd ap2: 15.1 cm2 LAV(MOD-bp) Indexed: 65.5 ml/m2 LVLd ap4: 5.8 cm LVLd ap2: 6.1 cm LAV(MOD-sp2): 104.3 ml EDV(MOD-sp4): 30.9 ml EDV(MOD-sp2): 30.9 ml LAV(MOD-sp4): 106.7 ml EDV(sp4-el): 31.4 ml EDV(sp2-el): 31.9 ml LVAs ap4: 7.3 cm2 LVAs ap2: 7.6 cm2 LVLs ap4: 4.9 cm LVLs ap2: 4.3 cm ESV(MOD-sp4): 9.5 ml ESV(MOD-sp2): 11.4 ml ESV(sp4-el): 9.2 ml ESV(sp2-el): 11.4 ml EF(MOD-sp4): 69.1 % EF(MOD-sp2): 63.2 % EF(sp4-el): 70.5 % SV(MOD-sp4): 21.3 ml SV(MOD-sp2): 19.5 ml SV(sp4-el): 22.1 ml LA dimension(2D): 4.2 cm LA A4 area: 29.6 cm2 RA A4 area: 21.3 cm2 Doppler Measurements & Calculations TR max andrew: 350.5 cm/sec TR max P.1 mmHg ECHO/Echo Complete Interpretation Summary The estimated ejection fraction is 60-65 %. No significant changes from prior echo Ordering Physician: Elisabeth Nascimento Referring Physician: CHRISTOPHER BONILLA Performed By: Lisbet Joyner, MABEL, RVT
--- NOTE | 2021-07-14 16:24 | PCM.HP.STD ---
HPI - General General Date of Admission: 07/14/21 Date of Service: 07/14/21 Chief Complaint: Left-sided abdominal pain HPI Narrative NIMISHA CEJA, is a 75 F who presented to the emergency department at [facility] on 07/14/2021 with a chief complaint of left-sided abdominal pain that started approximately 3 to 4 days ago. She actually has multiple systemic complaints including intermittent myalgias but no chills or fever, intermittent nasal congestion which has resolved, mild sore throat which has resolved, some nausea but no vomiting and soft stools but no diarrhea. She indicates she has not eaten for approximately 2 days because she felt it would make her symptoms worse. She also is complaining of some soreness in her left upper quadrant that she describes as aching in nature. She was exposed to her son who had Covid approximately 2 weeks ago but she has not had any vaccines. This is her fourth hospitalization since 2020 and each time she has been found to have a large right-sided pleural effusion. She has had thoracenteses for these 3 times now. On 04/27/2021 she had 1200 cc removed, on 06/22/2021 she had 770 cc removed, and on 07/09/2021 she had 1000 cc removed. Each time fluid was sent for cytology no malignant cells were identified. She is complaining of some mild shortness of breath and states that she notices this mostly with exertion and states that at rest she is not having significant issues. She was discharged home on room air and states she has been doing okay with this however her oxygen saturation on presentation was 88% on room air and therefore she was placed on 2 L nasal cannula. As noted above she was mildly hypoxic with an oxygen saturation of 88% on room air which resolved with 2 L of oxygen supplementation, she was afebrile but tachycardic with heart rates anywhere from 94-150, her blood pressures were stable, and she was tachypneic with respiratory rates from 16-28. She did indicate she had not yet taken her heart rate medications yet today. Her CBC showed a marked leukocytosis with a white count of 20.3 and a left shift was present. Her coags showed an INR of 1.5 and the patient is on Coumadin at baseline. Her CMP shows mild hyponatremia and hyperchloremia, and elevated bilirubin at 1.1, and elevated AST at 180 and an elevated ALT at 95. A troponin was obtained and found to be 7. Lactic acid was obtained and found to be 1.2 a BNP was pending on admission. Her UA showed occult blood but was negative for RBCs and I suspect that this is bilirubinuria as her urine urobilinogen was elevated as well. A Covid rapid and PCR were obtained and were both negative. An EKG was performed and showed atrial fibrillation with mildly elevated heart rates but no ST-T wave changes consistent with ischemia. Given her pain and shortness of breath a CTA of the chest and a CT of the abdomen pelvis were performed. These showed a dilated main and bilateral pulmonary arteries centrally suggestive of pulmonary artery hypertension with no pulmonary embolus, and moderate right-sided pleural effusion with compressive atelectasis in the right lower lobe, moderate cardiomegaly with a dilated RV and reflux of contrast into the IVC consistent with right heart dysfunction, heterogeneous enhancement and decreased density of the left lateral kidney that was new and suggestive of renal ischemia/infarction/neoplasm, a 2.9 cm superior and lateral left renal cyst with delayed peripheral nodular enhancement that was suspicious for cystic renal neoplasm and a splenic infarction. In the emergency department she was treated for pain and given her oral heart rate control medications and request for admission was made. [facility] Medical History (Updated 07/14/21 @ 16:[address] Elisabeth Nascimento DO) Atrial fibrillation Chronic anticoagulation Congestive heart failure (CHF) COPD (chronic obstructive pulmonary disease) COPD (chronic obstructive pulmonary disease) GERD (gastroesophageal reflux disease) Goiter HLD (hyperlipidemia) HTN (hypertension) Hypertension Hypokalemia Hyponatremia Marfans syndrome Non-smoker PAF (paroxysmal atrial fibrillation) Paroxysmal atrial fibrillation with RVR Pleural effusion PNA (pneumonia) Pulmonary hypertension Recurrent pleural effusion Rheumatoid arthritis Rheumatoid arthritis Substance abuse Subtherapeutic international normalized ratio (INR) Home Medications omeprazole 40 mg PO DAILY 10/19/14 [History Last Taken 07/13/21] calcium carbonate 600 mg calcium (1,500 mg) tablet 600 mg PO DAILY 06/19/19 [History Last Taken 07/12/21] multivitamin 1 tab PO DAILY 06/19/19 [History Last Taken 07/12/21] furosemide 40 mg tablet 40 mg PO BID tab 11/22/19 [History Last Taken 07/13/21] Handicap placard #1 ea 01/07/20 [Rx Last Taken Unknown] warfarin 4 mg tablet 2 mg PO SUTUTHSA 01/07/20 [History Last Taken 07/13/21] warfarin 4 mg tablet 4 mg PO MOWEFR 01/07/20 [History Last Taken 07/12/21] albuterol sulfate 90 mcg/actuation aerosol inhaler 2 puff INHALATION Q4H PRN g 01/09/20 [History Last Taken 1 Week Ago ~06/30/21] diltiazem HCl 240 mg PO DAILY 04/26/21 [History Last Taken 07/14/21] potassium chloride 20 meq PO BID 04/26/21 [History Last Taken 07/13/21] metoprolol tartrate 75 mg PO BID 07/14/21 [History Last Taken 07/14/21] Allergy/AdvReac Type Severity Reaction Status Date / Time pneumococcal vaccine Allergy Severe Rash Verified 07/14/21 09:59 [From Prevnar 13 (PF)] Latex, Natural Rubber Allergy Rash Verified 07/14/21 09:59 rosuvastatin calcium Allergy myalgias Verified 07/14/21 09:59 [From Crestor] ibuprofen AdvReac Nausea Verified 07/14/21 09:59 Family History Mother Diabetes Colon cancer Marfan syndrome Sister Diabetes Hypertension Brother Marfan syndrome COPD (chronic obstructive pulmonary disease) Brother Marfan syndrome Father Gastric ulcer GERD (gastroesophageal reflux disease) Surgical History History of eye surgery History of hysterectomy Social History household members: spouse housing: other details: They take care of their handicap son who also lives with them. Smoking Status: Never smoker alcohol intake: never substance use type: does not use caffeine: Yes Type: coffee Number of servings: 4 ROS Constitutional Constitutional: Reports anorexia, fatigue and weakness; Denies change in weight, chills, fever(s), malaise, night sweats or other Eyes Eyes: Denies blurry vision, change in eye color, change in vision, discharge from eye(s), double vision, erythema, eye pain, loss of vision or other ENT HEENT: Reports nasal congestion; Denies abnormal hearing, dysphagia, ear pain, epistaxis, headache(s), hearing loss, nasal discharge, post nasal drip, sinus pressure, sore throat or other Cardiovascular Cardiovascular: Reports dyspnea on exertion; Denies chest pain, claudication, edema, lightheadedness, orthopnea, palpitations, paroxysmal nocturnal dyspnea, rapid heart rate, syncope or other Respiratory/Chest Respiratory/Chest: Reports cough, dyspnea, shortness of breath at rest and shortness of breath with exertion; Denies excessive phlegm production, hemoptysis, productive cough, wheezing or other Gastrointestinal Gastrointestinal: Reports loose stools and nausea; Denies abdominal pain, coffee ground emesis, constipation, diarrhea, dyspepsia, hematemesis, hematochezia, melena, vomiting or other Genitourinary Genitourinary: Denies burning urination, difficulty urinating, dysuria, hematuria, nocturia, urinary frequency, urinary hesitancy, urinary incontinence, urinary urgency or other Musculoskeletal Musculoskeletal: Reports myalgias; Denies arthralgias, back pain, joint pain, joint stiffness, joint swelling, neck pain or other Neurologic Neurologic: Denies abnormal gait, abnormal speech, confusion, disequilibrium, dizziness, focal weakness, headache(s), numbness, paresthesias, seizure-like activity, seizures, syncope, tingling, tremor(s) or other Psychiatric Psychiatric: Denies anxiety, depression, homicidal ideation, suicidal ideation or other Endocrine Endocrinology: Denies change in body appearance, cold intolerance, excessive sweating, heat intolerance, polydipsia, polyuria or other Hematologic/Lymphatic Hematologic/Lymphatic: Denies anemia, easy bleeding, easy bruising, lymphadenopathy or other Allergic/Immunologic Allergic/Immunologic: Denies rhinitis, hives, eczemia, asthma or other Vital Signs Vital Signs Vital Signs: 07/14/21 09:55 07/14/21 10:57 07/14/21 10:58 Temperature 98.3 F Temperature Source Oral Pulse Rate 150 H 129 H Respiratory Rate 20 H 22 H Respiratory Effort Respiratory Depth Respiratory Pattern Blood Pressure 143/102 H 133/82 H Blood Pressure Mean 115 99 Blood Pressure Source Blood Pressure Position Blood Pressure Location Pulse Ox 93 88 96 Oxygen Delivery Method Room Air Room Air Nasal Cannula Oxygen Flow Rate (L/min) 2 07/14/21 11:20 07/14/21 13:51 07/14/21 14:35 Temperature 98 F 98 F Temperature Source Temporal Temporal Pulse Rate 130 H 118 H 118 H Respiratory Rate 26 H 28 H 28 H Respiratory Effort Respiratory Depth Respiratory Pattern Blood Pressure 143/99 H 121/79 H 121/79 H Blood Pressure Mean 113 93 93 Blood Pressure Source Blood Pressure Position Blood Pressure Location Pulse Ox 98 98 98 Oxygen Delivery Method Nasal Cannula Nasal Cannula Nasal Cannula Oxygen Flow Rate (L/min) 2 2 2 07/14/21 15:13 07/14/21 15:26 07/14/21 15:36 Temperature 98.4 F Temperature Source Oral Pulse Rate 94 109 H Respiratory Rate 16 Respiratory Effort Normal Non-Labored Respiratory Depth Shallow Respiratory Pattern Normal Blood Pressure 102/65 Blood Pressure Mean 77 Blood Pressure Source Monitor Blood Pressure Position Semi-Fowlers Blood Pressure Location Left Arm Pulse Ox 96 Oxygen Delivery Method Nasal Cannula Nasal Cannula Oxygen Flow Rate (L/min) 2 2 Weight Weight: 63.588 kg Body Mass Index (BMI) 26.4 Physical Exam Const alert, oriented x3 and well nourished Constitutional Narrative: Overweight, older white female sitting up in bed, appears ill but nontoxic, very pleasant, appears comfortable at this time General Appearance: cooperative HEENT normocephalic, head/scalp atraumatic, hearing grossly normal bilaterally and moist oral mucous membranes HEENT Narrative: Mallampati is 2, no thrush Eyes PERRL, EOMs intact bilaterally and conjunctivae normal Eyes Narrative: No scleral icterus Neck no lymphadenopathy, supple, no JVD and no carotid bruits Neck Narrative: Trachea midline, no thyroid enlargement Resp normal respiratory effort, no retractions, no use of accessory muscles and No clear to auscultation bilaterally Resp Narrative: Markedly diminished breath sounds right base with few crackles in the right base as well, left lung is clear Auscultation: crackles; Negative for rales, rhonchi or wheezes Cardio S1 normal heart sound, S2 normal heart sound, no rub, no gallops, no clicks and no JVD; Negative for regular rate, regular rhythm or no murmurs Cardio Narrative: Irregularly irregular with tachycardia, 3 out of 6 systolic murmur GI normal to inspection, nondistended, normoactive bowel sounds, soft to palpation and non-distended Palpation: tender LUQ Extremity no clubbing, cyanosis or edema Peripheral Pulses: Yes pulses 2+ throughout Skin no rashes or lesions noted, no wounds, skin turgor normal, no jaundice, no petechiae and no mottling Neuro oriented x3, CN's II-XII intact bilaterally, moves all extremities and no focal motor deficits Sensorium / Orientation: awake and alert Speech: speech normal Motor Exam: strength 5/5 throughout Psych Psych Narrative: Affect is slightly flat but mood peers stable Results Lab / Micro Data Attestation: I reviewed the patient's lab results. Result Diagrams: 07/14/21 10:24 07/14/21 10:24 Labs: Laboratory Results - last 24 hr 07/14/21 10:20: Lactic Acid 1.2 07/14/21 10:24: WBC 20.3 H, RBC 5.11, Hgb 14.0, Hct 43.0, MCV 84.1, MCH 27.4, MCHC 32.6, RDW Std Deviation 46.1 H, RDW Coeff of Angelo 15.2 H, Plt Count 388, MPV 8.9, Immature Gran % (Auto) 0.500, Neut % (Auto) 85.2 H, Lymph % (Auto) 3.9 L, Wilkes % (Auto) 10.2 H, Eos % (Auto) 0.0, Baso % (Auto) 0.2, Absolute Neuts (auto) 17.3 H, Absolute Lymphs (auto) 0.80 L, Nucleated RBC % 0, Diff Path Review Reviewed 07/14/21 10:24: PT Cancelled, INR Cancelled 07/14/21 10:24: Sodium 131 L, Potassium 3.8, Chloride 95 L, Carbon Dioxide 29.0, Anion Gap 7, BUN 11, Creatinine 0.93, Estim Creat Clear Calc 39.44, Est GFR (MDRD) Af Amer 76, Est GFR (MDRD) Non-Af 63, BUN/Creatinine Ratio 11.9, Glucose 133 H, Calcium 9.1, Total Bilirubin 1.10 H, AST 180 H, ALT 95 H, Alkaline Phosphatase 126 H, Troponin I High Sens 7, Total Protein 8.3 H, Albumin 3.3, Globulin 5.0 H, Albumin/Globulin Ratio 0.7 L, Lipase 74 07/14/21 10:55: PT 17.6 H, INR 1.5, APTT 34.5 07/14/21 12:50: COVID-19 (KASHIF) Not Detected 07/14/21 13:50: Urine Color Deena, Urine Clarity Sl. Cloudy, Urine pH 6.5, Ur Specific [place] 1.010, Urine Protein 100 H, Urine Glucose (UA) Normal, Urine Ketones 5 H, Urine Occult Blood 250 H, Urine Nitrite Negative, Urine Bilirubin Negative, Urine Urobilinogen 4 H, Ur Leukocyte Esterase 25 H, Urine RBC 0-5 SEEN, Urine WBC 0-5 SEEN, Ur Squamous Epith Cells 5-10 SEEN, Urine Bacteria RARE, Urine Mucus 0 SEEN Micro: Microbiology 07/14/21 10:15 Nasal Secretion SARS-CoV-2 Antigen (Rapid) - Final Radiology Impression Abdomen/Pelvis CT 07/14/21 11:23 IMPRESSION: 1. Dilated main and bilateral pulmonary arteries centrally suggesting pulmonary hypertension. No thoracic aortic aneurysm. No central or segmental pulmonary embolism. 2. Moderate volume right pleural effusion with compressive atelectasis involving the right lower lobe. 3. Moderate cardiomegaly with dilated right ventricle and reflux of contrast the IVC suggesting right heart dysfunction. 4. Heterogeneous enhancement and decreased density of the lateral left kidney, NEW since CTA 01/03/2014. May represent renal ischemia/infarction versus pyelonephritis. Neoplasm is also the differential diagnosis. 5. 2.9 cm superior and lateral left renal cyst with delayed peripheral nodular enhancement best seen on image 3 of series 6, suspicious for cystic renal neoplasm. ACR White Paper guidelines (Hersonia, et al. JACR 2018; 15(2):264-273) recommend MRI or CT without and with intravenous contrast. 6. Splenic infarction. Given suspected left renal and splenic infarctions, embolic etiology should be considered. Electronically Signed: Reg Fontanez MD ([place]) at 12:33 EST Reading Location ID and State: [address] [place] [address] , Service support , Chest CTA 07/14/21 11:23 IMPRESSION: 1. Dilated main and bilateral pulmonary arteries centrally suggesting pulmonary hypertension. No thoracic aortic aneurysm. No central or segmental pulmonary embolism. 2. Moderate volume right pleural effusion with compressive atelectasis involving the right lower lobe. 3. Moderate cardiomegaly with dilated right ventricle and reflux of contrast the IVC suggesting right heart dysfunction. 4. Heterogeneous enhancement and decreased density of the lateral left kidney, NEW since CTA 01/03/2014. May represent renal ischemia/infarction versus pyelonephritis. Neoplasm is also the differential diagnosis. 5. 2.9 cm superior and lateral left renal cyst with delayed peripheral nodular enhancement best seen on image 3 of series 6, suspicious for cystic renal neoplasm. ACR White Paper guidelines (Tee, et al. JACR 2018; 15(2):264-273) recommend MRI or CT without and with intravenous contrast. 6. Splenic infarction. Given suspected left renal and splenic infarctions, embolic etiology should be considered. Electronically Signed: Reg Fontanez MD ([place]) at 12:32 EST Reading Location ID and State: [address] [place] [address] , Service support , Assessment & Plan Assessment/Plan (1) Splenic infarction: (2) Renal infarction: (3) Leukocytosis: (4) Acute respiratory failure with hypoxia: (5) Pleural effusion on right: (6) Hepatic congestion: (7) Renal cyst: PLAN: Acute hypoxic respiratory failure secondary to right-sided pleural effusion/decompensated RV dysfunction -Patient also with leukocytosis and with recent hospitalization could have concurrent pneumonia -Check strep pneumo and Legionella antigens -Check flu and RSV panel -Thoracentesis ordered with fluid studies/serum LDH in a.m. -Patient with multiple thoracentesis -04/27/2021 for 1200 cc -06/22/2021 4 770 cc -07/09/2021 a for 1000 cc -Cytology was reviewed no malignant cells identified -Wean oxygen as able--> patient currently on 2 L -As needed aerosols -With leukocytosis will cover empirically with antibiotics-HCAP coverage at this time -Consult pulmonary medicine given recurrent right-sided pleural effusion Splenic/renal infarct -I suspect this is related to her subtherapeutic INR and atrial fibrillation -Start heparin drip -Patient has chronically been on Coumadin -Was on Xarelto in the past but states that she had adverse reactions to this -Consider trial of Eliquis as patient has not been on this NOAC -Heparin drip chosen at this time given the fact that she will need procedures performed -Check echocardiogram for embolic source Leukocytosis -Cultures ordered as above -Empiric antibiotics -Lactic acid was normal Recurrent right-sided pleural effusion -May be related to pulmonary artery hypertension -CT shows marked dilation of the central vasculature without PE -Check echocardiogram -Lasix drip Decompensated right-sided heart failure -Lasix drip -Check BNP -Fluid restriction -I's and O's -Daily weights -Sodium restriction -May need to consider right-sided heart cath --> Question primary pulmonary artery hypertension as patient does not have a history of lung disease or left-sided heart failure -Pulmonary medicine has been consulted Cystic renal mass -Concern for malignancy -Check abdominal MRI -Consult urology PAF -Patient is currently in atrial fibrillation -Heparin drip -Suspect embolic sources are going to be cardiac -Check echocardiogram -Continue home diltiazem and metoprolol GERD -Continue omeprazole DVT prophylaxis -Heparin drip CODE STATUS -DNR CCA without intubation as per discussion with the patient on admission in the emergency department -Check echocardiogram Charges/Coding Visit Charges Inpatient E&M: 21956 Init Hosp L3
[2021-07-14] MEDS: Furosemide 500 MG in Empty Viaflex 50 mL 1 EACH CONT INF (16:40)
[2021-07-14] MEDS: Potassium Chloride Oral Tablet 20 MEQ PO (16:51)
[2021-07-14 17:06] LABS: BNP,B-Type NATRIURETIC PEPTIDE 548.1 pg/mL (0-100)
[2021-07-14] MEDS: Vancomycin IV 1,000 MG/200 ML BAG 200 MG IV (17:27)
--- NOTE | 2021-07-14 17:33 | PCM.RX.CS ---
Consult Pharmacy has been consulted to manage selected antiobiotic: Vancomycin Type of Consult: New start Labs: Sodium 131 mmol/L (136-145) L 07/14/21 10:24 Potassium 3.8 mmol/L (3.5-5.1) 07/14/21 10:24 Chloride 95 mmol/L (98-107) L 07/14/21 10:24 Carbon Dioxide 29.0 mmol/L (21.0-32.0) 07/14/21 10:24 Anion Gap 7 (5-15) 07/14/21 10:24 BUN 11 mg/dL (7-18) 07/14/21 10:24 Creatinine 0.93 mg/dL (0.55-1.02) 07/14/21 10:24 Est GFR (MDRD) Af Amer 76 mL/min (>60) 07/14/21 10:24 Est GFR (MDRD) Non-Af 63 mL/min (>60) 07/14/21 10:24 BUN/Creatinine Ratio 11.9 RATIO (10-20) 07/14/21 10:24 Glucose 133 mg/dL (74-106) H 07/14/21 10:24 Microbiology: Microbiology 07/14/21 10:15 Nasal Secretion SARS-CoV-2 Antigen (Rapid) - Final Weight used for dosin.6 kg Estimated Creatinine Clearance: 39.4ML/MIN Goal Trough: 15-20 mcg/mL Pharmacy Plan for Drug Dosing: Give initial standard dose of 1000mg IV x1, then continue with 750mg IV q24h. Will check a trough level before the 3rd dose per protocol. Pharmacy Service will continue to monitor and adjust dosing as required. Follow-Up Labs: Trough Vancomycin Labs to be done on [date and time ordered]: 07/16/21 17:30
[2021-07-14] MEDS: HEPARIN/D5w 25,000 UNITS 25,000 UNITS/250 ML IV.SOLN. 10 UNITS IV (17:41)
--- NOTE | 2021-07-14 19:34 | CON.PCM_ITS ---
Assessment & Plan Assessment/Plan (1) Renal cyst: (2) Renal infarction: PLAN: continue medical supportive care, management of embolic etiology afib, anticoagulation etc. regarding the left kidney, no plans for intervention of 3cm suspicious lesion during this admission. this can wait for management once she is more stable from cardiopulmonary standpoint. she can follow up with for management of this. continue supportive care for the renal infarction with pain management. no surgical intervention is planned at this time. will continue to monitor and address issues as they arise. HPI Consult Data Date of Consult: 07/14/21 HPI Narrative HPI Narrative: NIMISHA CEJA, is a 75 F who presents with increasing left upper quadrant and flank pain. There is no nausea or vomiting. She has never seen a urologist before, but sees . She has never had hematuria, rare urinary tract infections, some stress incontinence, but over all urologically healthy. She has never been a smoker. She has been having recurrent issues with her right lung and fluid. Feels she is breathing well currently. Did not know prior to now that there is a suspicious cystic left renal lesion. [facility] Medical History Atrial fibrillation Chronic anticoagulation Congestive heart failure (CHF) COPD (chronic obstructive pulmonary disease) COPD (chronic obstructive pulmonary disease) GERD (gastroesophageal reflux disease) Goiter HLD (hyperlipidemia) HTN (hypertension) Hypertension Hypokalemia Hyponatremia Marfans syndrome Non-smoker PAF (paroxysmal atrial fibrillation) Paroxysmal atrial fibrillation with RVR Pleural effusion PNA (pneumonia) Pulmonary hypertension Recurrent pleural effusion Rheumatoid arthritis Rheumatoid arthritis Substance abuse Subtherapeutic international normalized ratio (INR) Home Medications omeprazole 40 mg PO DAILY 10/19/14 [History Last Taken 07/13/21] calcium carbonate 600 mg calcium (1,500 mg) tablet 600 mg PO DAILY 06/19/19 [History Last Taken 07/12/21] multivitamin 1 tab PO DAILY 06/19/19 [History Last Taken 07/12/21] furosemide 40 mg tablet 40 mg PO BID tab 11/22/19 [History Last Taken 07/13/21] Handicap placard #1 ea 01/07/20 [Rx Last Taken Unknown] warfarin 4 mg tablet 2 mg PO SUTUTHSA 01/07/20 [History Last Taken 07/13/21] warfarin 4 mg tablet 4 mg PO MOWEFR 01/07/20 [History Last Taken 07/12/21] albuterol sulfate 90 mcg/actuation aerosol inhaler 2 puff INHALATION Q4H PRN g 01/09/20 [History Last Taken 1 Week Ago ~06/30/21] diltiazem HCl 240 mg PO DAILY 04/26/21 [History Last Taken 07/14/21] potassium chloride 20 meq PO BID 04/26/21 [History Last Taken 07/13/21] metoprolol tartrate 75 mg PO BID 07/14/21 [History Last Taken 07/14/21] Allergy/AdvReac Type Severity Reaction Status Date / Time pneumococcal vaccine Allergy Severe Rash Verified 07/14/21 09:59 [From Prevnar 13 (PF)] Latex, Natural Rubber Allergy Rash Verified 07/14/21 09:59 rosuvastatin calcium Allergy myalgias Verified 07/14/21 09:59 [From Crestor] ibuprofen AdvReac Nausea Verified 07/14/21 09:59 Family History Mother Diabetes Colon cancer Marfan syndrome Sister Diabetes Hypertension Brother Marfan syndrome COPD (chronic obstructive pulmonary disease) Brother Marfan syndrome Father Gastric ulcer GERD (gastroesophageal reflux disease) Surgical History History of eye surgery History of hysterectomy Social History household members: spouse housing: other details: They take care of their handicap son who also lives with them. Smoking Status: Never smoker alcohol intake: never substance use type: does not use caffeine: Yes Type: coffee Number of servings: 4 ROS Constitutional Constitutional: Reports body ache(s) and fatigue Eyes Eyes: Reports systems reviewed and no addt'l complaints, except as documented ENT HEENT: Reports systems reviewed and no addt'l complaints, except as documented Cardiovascular Cardiovascular: Reports abdominal pain, arrhythmia on telemetry, dyspnea on exertion, fatigue and irregular heart rhythm; Denies nausea Respiratory/Chest Respiratory/Chest: Reports dyspnea on exertion Gastrointestinal Gastrointestinal: Reports abdominal pain; Denies change in bowel habits, nausea or vomiting Genitourinary Genitourinary: Reports urinary incontinence; Denies burning urination, difficulty urinating or hematuria Musculoskeletal Musculoskeletal: Reports systems reviewed and no addt'l complaints, except as documented Integumentary Integumentary: Reports systems reviewed and no addt'l complaints, except as documented Neurologic Neurologic: Reports systems reviewed and no addt'l complaints, except as documented Psychiatric Psychiatric: Reports systems reviewed and no addt'l complaints, except as documented Endocrine Endocrinology: Reports systems reviewed and no addt'l complaints, except as documented Physical Exam Const alert, oriented x3 and no apparent distress HEENT normocephalic, head/scalp atraumatic and external nose normal Eyes General Eye: normal appearance of both eyes Neck supple General: trachea midline Chest inspection of chest normal Chest: symmetrical chest wall rise Resp Effort and Inspection: able to speak in complete sentences and symmetric chest movement Cardio Rate: tachycardic Rhythm: abnormal rhythm GI soft to palpation Palpation: tender LUQ Bladder / Kidney Exam: CVA tenderness left Skin no rashes or lesions noted, no wounds, skin turgor normal, no jaundice, no petechiae and no mottling Neuro oriented x3, CN's II-XII intact bilaterally and moves all extremities Psych mental status grossly normal and thought process normal Lab / Micro Data Result Diagrams: 07/14/21 10:24 07/14/21 10:24 Labs: Laboratory Results - last 24 hr 07/14/21 10:20: Lactic Acid 1.2 07/14/21 10:24: WBC 20.3 H, RBC 5.11, Hgb 14.0, Hct 43.0, MCV 84.1, MCH 27.4, MCHC 32.6, RDW Std Deviation 46.1 H, RDW Coeff of Angelo 15.2 H, Plt Count 388, MPV 8.9, Immature Gran % (Auto) 0.500, Neut % (Auto) 85.2 H, Lymph % (Auto) 3.9 L, [place] % (Auto) 10.2 H, Eos % (Auto) 0.0, Baso % (Auto) 0.2, Absolute Neuts (auto) 17.3 H, Absolute Lymphs (auto) 0.80 L, Nucleated RBC % 0, Diff Path Review Reviewed 07/14/21 10:24: PT Cancelled, INR Cancelled 07/14/21 10:24: Sodium 131 L, Potassium 3.8, Chloride 95 L, Carbon Dioxide 29.0, Anion Gap 7, BUN 11, Creatinine 0.93, Estim Creat Clear Calc 39.44, Est GFR (MDRD) Af Amer 76, Est GFR (MDRD) Non-Af 63, BUN/Creatinine Ratio 11.9, Glucose 133 H, Calcium 9.1, Total Bilirubin 1.10 H, AST 180 H, ALT 95 H, Alkaline Ph osphatase 126 H, Troponin I High Sens 7, Total Protein 8.3 H, Albumin 3.3, Globulin 5.0 H, Albumin/Globulin Ratio 0.7 L, Lipase 74 07/14/21 10:24: B-Natriuretic Peptide 548.1 H 07/14/21 10:55: PT 17.6 H, INR 1.5, APTT 34.5 07/14/21 12:50: COVID-19 (KASHIF) Not Detected 07/14/21 13:50: Urine Color Deena, Urine Clarity Sl. Cloudy, Urine pH 6.5, Ur Specific [place] 1.010, Urine Protein 100 H, Urine Glucose (UA) Normal, Urine Ketones 5 H, Urine Occult Blood 250 H, Urine Nitrite Negative, Urine Bilirubin Negative, Urine Urobilinogen 4 H, Ur Leukocyte Esterase 25 H, Urine RBC 0-5 SEEN, Urine WBC 0-5 SEEN, Ur Squamous Epith Cells 5-10 SEEN, Urine Bacteria RARE, Urine Mucus 0 SEEN Micro: Microbiology 07/14/21 13:50 Urine, Clean Catch Legionella Antigen - Final 07/14/21 13:50 Urine, Clean Catch Streptococcus pneumoniae Antigen (M - Final 07/14/21 16:15 Mucosa - Nasopharyngeal Rapid RSV (DFA) - Final 07/14/21 16:15 Mucosa - Nasopharyngeal Influenza Types A,B Direct FA (MORIAH) - Final 07/14/21 10:15 Nasal Secretion SARS-CoV-2 Antigen (Rapid) - Final Radiology Impression Abdomen/Pelvis CT 07/14/21 11:23 IMPRESSION: 1. Dilated main and bilateral pulmonary arteries centrally suggesting pulmonary hypertension. No thoracic aortic aneurysm. No central or segmental pulmonary embolism. 2. Moderate volume right pleural effusion with compressive atelectasis involving the right lower lobe. 3. Moderate cardiomegaly with dilated right ventricle and reflux of contrast the IVC suggesting right heart dysfunction. 4. Heterogeneous enhancement and decreased density of the lateral left kidney, NEW since CTA 01/03/2014. May represent renal ischemia/infarction versus pyelonephritis. Neoplasm is also the differential diagnosis. 5. 2.9 cm superior and lateral left renal cyst with delayed peripheral nodular enhancement best seen on image 3 of series 6, suspicious for cystic renal neoplasm. ACR White Paper guidelines (Herts, et al. JACR 2018; 15(2):264-273) recommend MRI or CT without and with intravenous contrast. 6. Splenic infarction. Given suspected left renal and splenic infarctions, embolic etiology should be considered. Electronically Signed: Reg Fontanez MD ([place]) at 12:33 EST , Chest CTA 07/14/21 11:23 IMPRESSION: 1. Dilated main and bilateral pulmonary arteries centrally suggesting pulmonary hypertension. No thoracic aortic aneurysm. No central or segmental pulmonary embolism. 2. Moderate volume right pleural effusion with compressive atelectasis involving the right lower lobe. 3. Moderate cardiomegaly with dilated right ventricle and reflux of contrast the IVC suggesting right heart dysfunction. 4. Heterogeneous enhancement and decreased density of the lateral left kidney, NEW since CTA 01/03/2014. May represent renal ischemia/infarction versus pyelonephritis. Neoplasm is also the differential diagnosis. 5. 2.9 cm superior and lateral left renal cyst with delayed peripheral nodular enhancement best seen on image 3 of series 6, suspicious for cystic renal neoplasm. ACR White Paper guidelines (Herts, et al. JACR 2018; 15(2):264-273) recommend MRI or CT without and with intravenous contrast. 6. Splenic infarction. Given suspected left renal and splenic infarctions, embolic etiology should be considered. Electronically Signed: Reg Fontanez MD ([place]) at 12:32 EST ,
[2021-07-14] MEDS: Metoprolol Tartrate 25 MG Tablet 75 MG PO (21:45)
[2021-07-15] VITALS (18 sets, daily range): BP systolic 90–112; BP diastolic 45–70; PULSE 90–114; RESP 18; TEMP 36.3–37; O2SAT 95–99
[2021-07-15 00:22] LABS: Partial Thromboplast Time 129.5 Seconds (24.1-36.2)
[2021-07-15 08:25] LABS: Absolute Lymphocyte Count 1.16 X10^3/uL (0.83-4.51); Basophil# 0.05 X10^3/uL; Basophil% 0.3 % (0-1); Eosinophil# 0.06 X10^3/uL; Eosinophils% 0.4 % (0-5); Hematocrit 38.7 % (37-47); Hemoglobin 12.8 g/dL (12.0-15.0); Lymphocyte # 1.16 X10^3/ul (0.83-4.51); Lymphocyte % 7.6 % (19-41); Mean Corp Hgb Conc 33.1 g/dL (32-36); Mean Corpuscular Hgb 28.5 pg (27.0-32.0); Mean Corpuscular Volume 86.2 fL (81-99); Monocyte# 1.99 X10^3/uL; NRBC Flagged by Analyzer 0 % (0-5); Neutrophil # 12.01 X10^3/uL (2.7-7.7); Neutrophil % 78.2 % (47-70); POSITIVE DIFFERENTIAL YES; Platelet Count 300 K/mm3 (150-450); RBC Distribution Width CV 15.4 % (11.6-14.6); RBC Distribution Width SD 47.8 fl (35.1-43.9); Red Blood Count 4.49 M/mm3 (4.2-5.4); White Blood Count 15.4 K/mm3 (4.4-11.0)
[2021-07-15 08:33] LABS: Differential Indicated SCAN CRITERIA MET
[2021-07-15 08:36] LABS: Partial Thromboplast Time 64.3 Seconds (24.1-36.2)
[2021-07-15] MEDS: Potassium Chloride Oral Tablet 20 MEQ PO ×2 (08:44→16:37)
[2021-07-15] MEDS: Multivitamins,Therapeutic Tablet 1 TABLET PO (08:45)
--- NOTE | 2021-07-15 08:56 | MRI_ITS ---
EXAM: MR ABDOMEN WITHOUT AND WITH INTRAVENOUS CONTRAST : 1945 CLINICAL INDICATION: Complex renal cyst TECHNIQUE: Multiplanar and multisequence MR images of the abdomen without and with intravenous contrast. This report was created using [employer] technology. CONTRAST: IV 13 cc dotarem COMPARISON: CT abdomen and pelvis July 14, 2021 FINDINGS: LOWER THORAX: Large right pleural effusion. Moderate cardiomegaly is partially visualized. Distended inferior vena cava and hepatic veins indicative of increased right-sided heart pressure. LIVER: Liver is enlarged. Small cystic lesions noted within hepatic segments 6 and 7. GALLBLADDER AND BILE DUCTS: Unremarkable. No gallstones. No gallbladder distention or wall edema. No intra- or extrahepatic biliary ductal dilation. PANCREAS: Unremarkable. No focal cystic or solid mass. SPLEEN: Small focus of non-enhancement within the superolateral portion of the spleen may represent an area of scarring related to old ischemia or trauma. ADRENALS: Unremarkable. No nodules. KIDNEYS AND URETERS: Heterogeneous signal intensity within the left kidney noted on T1 and T2-weighted images. There are multiple nonenhancing lesions within the left kidney identified with contrast administration which may be related to inflammatory or infectious process. No evidence to suggest renal infarction. No evidence of an enhancing neoplasm. Normal right renal size and position. INTRAPERITONEAL SPACE: Unremarkable. No ascites or other fluid collection. No free air. VASCULATURE: Unremarkable. Abdominal aorta is non-dilated. LYMPH NODES: No enlarged lymph nodes. MRI/MRI Abd WITH and W/O Contrast IMPRESSION: 1. Abnormality of the left kidney which may represent an inflammatory or infectious process. No evidence of an enhancing neoplasm. 2. Hepatomegaly. 3. Large right pleural effusion. 4. Cardiomegaly. at 1112 Reported and signed by: Andrew Estrella MD Electronically Signed: Andrew Estrella MD at 11:11 EST ,
[2021-07-15 09:08] LABS: ALB/GLOB Ratio 0.6 RATIO (0.9-2.4); AST(SGOT) 94 U/L (15-37); Alanine Aminotransfer ALT/SGPT 73 U/L (13-56); Albumin, Serum 2.5 g/dL (3.2-5.0); Alkaline Phosphatase 93 U/L (45-117); Anion Gap 5 (5-15); BUN 12 mg/dL (7-18); BUN/Creat Ratio 12.9 RATIO (10-20); Calcium,Total 8.1 mg/dL (8.5-10.1); Chloride 100 mmol/L (98-107); Creatinine, Serum 0.93 mg/dL (0.55-1.02); EST Glomerular Filtration Rate 62 mL/min (>60); Est Glom Filt Rate - Afr Amer 75 mL/min (>60); Estimated Creatinine Clearance 39.44 ml/min; Globulin 4.1 g/dL (2.2-4.2); Glucose 89 mg/dL (74-106); LDH 925 U/L (84-246); Potassium 3.2 mmol/L (3.5-5.1); Protein, Total 6.6 g/dL (6.4-8.2); Sodium Level 136 mmol/L (136-145); Thyroid Stim Hormone (TSH) 0.54 uIU/mL (0.358-3.74)
--- NOTE | 2021-07-15 11:03 | EX.PCM.CONCC ---
Assessment & Plan Assessment/Plan (1) Pleural effusion on right: PLAN: RECOMMENDATIONS: 1. Continue diuretic therapy as tolerated by hemodynamics and renal function. 2. Continue empiric antimicrobials. 3. Await results of thoracentesis tomorrow. 4. Recommend eventual right heart catheterization and secondary work-up for pH. This can be completed by her primary green chain operator on an outpatient basis. (Dr. Edwards at [facility]) IMPRESSIONS: 1. Recurrent right-sided pleural effusion Unclear etiology. Prior cell count with differential from June 2021 revealed mixed cellularity with lymphocyte predominance. Pleural fluid cytology on 3 occasions have been negative for malignant cells. The patient does appear to have right-sided heart dysfunction/pulmonary hypertension which could be a contributing etiology. Alternatively, the patient reported a history of rheumatoid arthritis which can also be associated with pleural effusions as well. Nevertheless, it is unclear what rheumatologic work-up has been completed in the past and why she has never been seen by a systems technologist. At this time, there are tentative plans to proceed with ultrasound-guided thoracentesis tomorrow. Recommend sending pleural fluid cell count, cultures, LDH, total protein, glucose and cytology. Depending on the results of her pleural fluid analysis, further recommendations will be forthcoming. Nevertheless, if the patient has an exudative effusion that is recurrent of unclear etiology, she may eventually pleural biopsy and/or surgical intervention in the form of a pleurodesis. 2. Decompensated right-sided heart failure/pulmonary hypertension Continue diuretic therapy as tolerated by hemodynamics and renal function. Ultimately, the patient would benefit from right-sided heart catheterization. Recommend secondary work-up for pulmonary hypertension, which can be completed on an outpatient basis by her primary green chain operator. 3. Paroxysmal atrial fibrillation/GERD/splenic infarct Complicates care, management, recovery and prognosis. Continue heparin infusion for now. This note was generated with [employer] software. It may contain incorrect words, spelling, and punctuation that were not noted in checking the note before signing. HPI Consult Data Date of Consult: 07/16/21 HPI Narrative Reason for Consultation: Recurrent pleural effusion HPI Narrative: The patient is a 75-year-old female, with a history as outlined below, who presented to the emergency department on July 14 with abdominal pain and shortness of breath. The patient was just discharged from the hospital in July after having been admitted with hypoxemia and a right-sided pleural effusion, which required thoracentesis. The patient does have a medical history significant for paroxysmal atrial fibrillation, hypertension, Marfan syndrome, COPD, pulmonary hypertension and rheumatoid arthritis. The patient was previously being followed by Dr. Edwards at [facility]. She then attempted to transition her care to our office in 2019. However, she failed to follow-up for 3+ appointments and was therefore never rescheduled. The patient has had 3 separate thoracenteses since April 2021. Despite 3 separate thoracenteses the pleural fluid was only sent for cell count analysis on one occasion which revealed mixed cellularity with lymphocyte predominance. Pleural fluid cytology from April 2021, June 2021 and July 2021 were all negative for malignancy. On presentation to the emergency department, the patient was noted to be afebrile but was tachycardic and tachypneic. Initial laboratory evaluation revealed an elevated white blood cell count to 20,000. Chemistry profile was notable for sodium of 131, chloride of 95 and normal creatinine. Total bili was increased at 1.1 with an AST of 180, ALT of 95 and alkaline phosphatase of 126. BNP was elevated at 548. Chest CTA revealed dilated pulmonary arteries suggestive of pulmonary hypertension. No PE was identified. There was a moderate sized right-sided pleural effusion with compressive atelectasis and evidence of RV dysfunction. The patient was placed on antimicrobials along with the Lasix infusion. She was admitted to the progressive care unit for further management. [facility] Medical History Atrial fibrillation Chronic anticoagulation Congestive heart failure (CHF) COPD (chronic obstructive pulmonary disease) COPD (chronic obstructive pulmonary disease) GERD (gastroesophageal reflux disease) Goiter HLD (hyperlipidemia) HTN (hypertension) Hypertension Hypokalemia Hyponatremia Marfans syndrome Non-smoker PAF (paroxysmal atrial fibrillation) Paroxysmal atrial fibrillation with RVR Pleural effusion PNA (pneumonia) Pulmonary hypertension Recurrent pleural effusion Rheumatoid arthritis Rheumatoid arthritis Substance abuse Subtherapeutic international normalized ratio (INR) Home Medications omeprazole 40 mg PO DAILY 10/19/14 [History Last Taken 07/13/21] calcium carbonate 600 mg calcium (1,500 mg) tablet 600 mg PO DAILY 06/19/19 [History Last Taken 07/12/21] multivitamin 1 tab PO DAILY 06/19/19 [History Last Taken 07/12/21] furosemide 40 mg tablet 40 mg PO BID tab 11/22/19 [History Last Taken 07/13/21] Handicap placard #1 ea 01/07/20 [Rx Last Taken Unknown] warfarin 4 mg tablet 2 mg PO SUTUTHSA 01/07/20 [History Last Taken 07/13/21] warfarin 4 mg tablet 4 mg PO MOWEFR 01/07/20 [History Last Taken 07/12/21] albuterol sulfate 90 mcg/actuation aerosol inhaler 2 puff INHALATION Q4H PRN g 01/09/20 [History Last Taken 1 Week Ago ~06/30/21] diltiazem HCl 240 mg PO DAILY 04/26/21 [History Last Taken 07/14/21] potassium chloride 20 meq PO BID 04/26/21 [History Last Taken 07/13/21] metoprolol tartrate 75 mg PO BID 07/14/21 [History Last Taken 07/14/21] Allergy/AdvReac Type Severity Reaction Status Date / Time pneumococcal vaccine Allergy Severe Rash Verified 07/14/21 09:59 [From Prevnar 13 (PF)] Latex, Natural Rubber Allergy Rash Verified 07/14/21 09:59 rosuvastatin calcium Allergy myalgias Verified 07/14/21 09:59 [From Crestor] ibuprofen AdvReac Nausea Verified 07/14/21 09:59 Family History Mother Diabetes Colon cancer Marfan syndrome Sister Diabetes Hypertension Brother Marfan syndrome COPD (chronic obstructive pulmonary disease) Brother Marfan syndrome Father Gastric ulcer GERD (gastroesophageal reflux disease) Surgical History History of eye surgery History of hysterectomy Social History household members: spouse housing: other details: They take care of their handicap son who also lives with them. Smoking Status: Never smoker alcohol intake: never substance use type: does not use caffeine: Yes Type: coffee Number of servings: 4 ROS Constitutional Constitutional: Denies chills, fatigue or fever(s) Eyes Eyes: Denies blurry vision or change in vision ENT HEENT: Denies dizziness, headache(s) or hoarseness Cardiovascular Cardiovascular: Reports dyspnea Respiratory/Chest Respiratory/Chest: Reports dyspnea Gastrointestinal Gastrointestinal: Reports abdominal pain; Denies nausea or vomiting Genitourinary Genitourinary: Denies difficulty urinating Musculoskeletal Musculoskeletal: Denies arthralgias, back pain or joint pain Integumentary Integumentary: Denies lesions, rash or skin ulcer Neurologic Neurologic: Denies abnormal gait or abnormal speech Psychiatric Psychiatric: Denies anxiety Endocrine Endocrinology: Denies fatigue Hematologic/Lymphatic Hematologic/Lymphatic: Denies easy bleeding or easy bruising Physical Exam Const alert and no apparent distress Constitutional Narrative: Sitting in bedside recliner. General Appearance: cooperative HEENT normocephalic, head/scalp atraumatic and moist oral mucous membranes Eyes PERRL, EOMs intact bilaterally and conjunctivae normal Neck supple General: trachea midline Chest inspection of chest normal Resp Auscultation: rales and diminished lung sounds right lower Cardio S1 normal heart sound and S2 normal heart sound Heart Sounds: murmur GI normal to inspection, nondistended, normoactive bowel sounds Extremity no clubbing, cyanosis or edema Skin no rashes or lesions noted Neuro CN's II-XII intact bilaterally, moves all extremities and no focal motor deficits Psych Mood & Affect: flat affect Lab / Micro Data Result Diagrams: 07/16/21 05:36 07/16/21 05:36 Labs: Laboratory Results - last 24 hr 07/14/21 10:20: Lactic Acid 1.2 07/14/21 10:24: Diff Path Review Reviewed 07/14/21 10:24: B-Natriuretic Peptide 548.1 H 07/14/21 10:55: PT 17.6 H, INR 1.5, APTT 34.5 07/14/21 12:50: COVID-19 (KASHIF) Not Detected 07/14/21 13:50: Urine Color Deena, Urine Clarity Sl. Cloudy, Urine pH 6.5, Ur Specific [place] 1.010, Urine Protein 100 H, Urine Glucose (UA) Normal, Urine Ketones 5 H, Urine Occult Blood 250 H, Urine Nitrite Negative, Urine Bilirubin Negative, Urine Urobilinogen 4 H, Ur Leukocyte Esterase 25 H, Urine RBC 0-5 SEEN, Urine WBC 0-5 SEEN, Ur Squamous Epith Cells 5-10 SEEN, Urine Bacteria RARE, Urine Mucus 0 SEEN 07/14/21 23:47: APTT 129.5 H* 07/15/21 08:16: WBC 15.4 H, RBC 4.49, Hgb 12.8, Hct 38.7, MCV 86.2, MCH 28.5, MCHC 33.1, RDW Std Deviation 47.8 H, RDW Coeff of Angelo 15.4 H, Plt Count 300, MPV 9.0, Immature Gran % (Auto) 0.500, Neut % (Auto) 78.2 H, Lymph % (Auto) 7.6 L, [place] % (Auto) 13.0 H, Eos % (Auto) 0.4, Baso % (Auto) 0.3, Absolute Neuts (auto) 12.0 H, Absolute Lymphs (auto) 1.16, Nucleated RBC % 0, Differential Comment COMMENT, Diff Path Review October foll 07/15/21 08:16: Sodium 136, Potassium 3.2 L, Chloride 100, Carbon Dioxide 31.0, Anion Gap 5, BUN 12, Creatinine 0.93, Estim Creat Clear Calc 39.44, Est GFR (MDRD) Af Amer 75, Est GFR (MDRD) Non-Af 62, BUN/Creatinine Ratio 12.9, Glucose 89, Calcium 8.1 L, Phosphorus 3.0, Magnesium Cancelled, Total Bilirubin 0.80, AST 94 H, ALT 73 H, Alkaline Phosphatase 93, Lactate Dehydrogenase 925 H, Total Protein 6.6, Albumin 2.5 L, Globulin 4.1, Albumin/Globulin Ratio 0.6 L, TSH 0.54 07/15/21 08:16: APTT 64.3 H Micro: Microbiology 07/14/21 13:50 Urine, Clean Catch Legionella Antigen - Final 07/14/21 13:50 Urine, Clean Catch Streptococcus pneumoniae Antigen (M - Final 07/14/21 16:15 Mucosa - Nasopharyngeal Rapid RSV (DFA) - Final 07/14/21 16:15 Mucosa - Nasopharyngeal Influenza Types A,B Direct FA (MORIAH) - Final 07/14/21 10:15 Nasal Secretion SARS-CoV-2 Antigen (Rapid) - Final Radiology Impression Abdomen/Pelvis CT 07/14/21 11:23 IMPRESSION: 1. Dilated main and bilateral pulmonary arteries centrally suggesting pulmonary hypertension. No thoracic aortic aneurysm. No central or segmental pulmonary embolism. 2. Moderate volume right pleural effusion with compressive atelectasis involving the right lower lobe. 3. Moderate cardiomegaly with dilated right ventricle and reflux of contrast the IVC suggesting right heart dysfunction. 4. Heterogeneous enhancement and decreased density of the lateral left kidney, NEW since CTA 01/03/2014. May represent renal ischemia/infarction versus pyelonephritis. Neoplasm is also the differential diagnosis. 5. 2.9 cm superior and lateral left renal cyst with delayed peripheral nodular enhancement best seen on image 3 of series 6, suspicious for cystic renal neoplasm. ACR White Paper guidelines (Herts, et al. JACR 2018; 15(2):264-273) recommend MRI or CT without and with intravenous contrast. 6. Splenic infarction. Given suspected left renal and splenic infarctions, embolic etiology should be considered. Electronically Signed: Reg Fontanez MD ([place]) at 12:33 EST , Chest CTA 07/14/21 11:23 IMPRESSION: 1. Dilated main and bilateral pulmonary arteries centrally suggesting pulmonary hypertension. No thoracic aortic aneurysm. No central or segmental pulmonary embolism. 2. Moderate volume right pleural effusion with compressive atelectasis involving the right lower lobe. 3. Moderate cardiomegaly with dilated right ventricle and reflux of contrast the IVC suggesting right heart dysfunction. 4. Heterogeneous enhancement and decreased density of the lateral left kidney, NEW since CTA 01/03/2014. May represent renal ischemia/infarction versus pyelonephritis. Neoplasm is also the differential diagnosis. 5. 2.9 cm superior and lateral left renal cyst with delayed peripheral nodular enhancement best seen on image 3 of series 6, suspicious for cystic renal neoplasm. ACR White Paper guidelines (Herts, et al. JACR 2018; 15(2):264-273) recommend MRI or CT without and with intravenous contrast. 6. Splenic infarction. Given suspected left renal and splenic infarctions, embolic etiology should be considered. Electronically Signed: Reg Fontanez MD ([place]) at 12:32 EST , Charges/Coding Visit Charges Inpatient E&M: 01584 Init Hosp L3
[2021-07-15 11:30] LABS: Rheumatoid Factor < 10.0 IU/mL (<15)
--- NOTE | 2021-07-15 11:31 | NURSING ---
This RN paused heparin gtt due to patient being off the floor for MRI. Heparin gtt resumed after patient returned to floor.
[2021-07-15] MEDS: Pantoprazole Sodium 40 MG Tablet PO (11:56)
[2021-07-15] MEDS: dilTIAZem CD 240 MG Capsule PO (11:56)
[2021-07-15] MEDS: Metoprolol Tartrate 25 MG Tablet 75 MG PO ×2 (11:58→21:39)
[2021-07-15 14:23] LABS: Partial Thromboplast Time 56.1 Seconds (24.1-36.2)
--- NOTE | 2021-07-15 14:41 | PN.HOSP_ITS ---
Subjective Subjective Patient seen and xamined. She was admitted with a complaint of left-sided abdominal pain which started about 4 days prior to admission. She has had recurrent left pleural effusion and has required [address] of the abdomen and pelvis and CTA of the chest were done which showed dilated main and bilateral pulmonary artery centrally suggestive of pulmonary artery hypertension with no evidence of PE and moderate size right pleural effusion with compressive atelectasis, moderate cardiomegaly and decreased density of the left lateral kidney which was concerning for renal ischemia versus infarction versus neoplasm and also concern for splenic infarction. She has been managed for recurrent right-sided pleural effusion as well as renal and splenic infarcts. Patient still complains of some left upper quadrant pain. She denies any cough or chest pain, palpitations or dizziness, nausea vomiting or diarrhea. Review of systems otherwise negative. Objective Data Objective Data Vital Signs: Vital Signs Temp Pulse Resp BP Pulse Ox 97.7 F L 110 H 18 111/69 97 07/15/21 11:53 07/15/21 11:58 07/15/21 11:53 07/15/21 11:53 07/15/21 14:11 Oxygen Flow Rate (L/min) 2 Oxygen Delivery Method Nasal Cannula Weight: 130 lb 4.691 oz Body Mass Index (BMI) 26.4 Intake & Output: Intake and Output for Last 24 Hours 07/13/21 07/14/21 07/15/21 23:59 23:59 23:59 Intake Total 1994. 319.01 / 319.01 Output Total 600 / 600 Balance -280.99 / -280.99 Lab / Micro Data Result Diagrams: 07/15/21 08:16 07/15/21 08:16 Labs: Laboratory Results - last 24 hr 07/14/21 10:24: B-Natriuretic Peptide 548.1 H 07/14/21 12:50: COVID-19 (KASHIF) Not Detected 07/14/21 23:47: APTT 129.5 H* 07/15/21 08:16: WBC 15.4 H, RBC 4.49, Hgb 12.8, Hct 38.7, MCV 86.2, MCH 28.5, MCHC 33.1, RDW Std Deviation 47.8 H, RDW Coeff of Angelo 15.4 H, Plt Count 300, MPV 9.0, Immature Gran % (Auto) 0.500, Neut % (Auto) 78.2 H, Lymph % (Auto) 7.6 L, [place] % (Auto) 13.0 H, Eos % (Auto) 0.4, Baso % (Auto) 0.3, Absolute Neuts (auto) 12.0 H, Absolute Lymphs (auto) 1.16, Nucleated RBC % 0, Differential Comment COMMENT, Diff Path Review October foll 07/15/21 08:16: Sodium 136, Potassium 3.2 L, Chloride 100, Carbon Dioxide 31.0, Anion Gap 5, BUN 12, Creatinine 0.93, Estim Creat Clear Calc 39.44, Est GFR (MDRD) Af Amer 75, Est GFR (MDRD) Non-Af 62, BUN/Creatinine Ratio 12.9, Glucose 89, Calcium 8.1 L, Phosphorus 3.0, Magnesium Cancelled, Total Bilirubin 0.80, AST 94 H, ALT 73 H, Alkaline Phosphatase 93, Lactate Dehydrogenase 925 H, Total Protein 6.6, Albumin 2.5 L, Globulin 4.1, Albumin/Globulin Ratio 0.6 L, TSH 0.54 07/15/21 08:16: APTT 64.3 H 07/15/21 08:16: Rheumatoid Factor < 10.0 07/15/21 13:50: APTT 56.1 H Micro: Microbiology 07/14/21 13:50 Urine, Clean Catch Legionella Antigen - Final 07/14/21 13:50 Urine, Clean Catch Streptococcus pneumoniae Antigen (M - Final 07/14/21 16:15 Mucosa - Nasopharyngeal Rapid RSV (DFA) - Final 07/14/21 16:15 Mucosa - Nasopharyngeal Influenza Types A,B Direct FA (MORIAH) - Final 07/14/21 10:15 Nasal Secretion SARS-CoV-2 Antigen (Rapid) - Final Radiography Diagnostic Testing: Radiology Impression Abdomen MRI 07/15/21 08:56 IMPRESSION: 1. Abnormality of the left kidney which may represent an inflammatory or infectious process. No evidence of an enhancing neoplasm. 2. Hepatomegaly. 3. Large right pleural effusion. 4. Cardiomegaly. at 1112 Reported and signed by: Andrew Estrella MD Electronically Signed: Andrew Estrella MD at 11:11 EST , Physical Exam Const alert, oriented x3 and no apparent distress HEENT Head and Scalp: normocephalic Eyes PERRL, EOMs intact bilaterally and conjunctivae normal Neck no lymphadenopathy, supple and no JVD Resp Resp Narrative: Markedly diminished breath sounds in the right upper, middle and lower lung flores. No wheezes or crackles. on 2L of oxygen by nasal canula Cardio regular rate, regular rhythm, S1 normal heart sound, S2 normal heart sound and no murmurs GI normal to inspection, nondistended, normoactive bowel sounds, soft to palpation and non-distended GI Narrative: mild RUQ tenderness, no guarding or rebound tenderness. Extremity normal to inspection, full ROM and no clubbing, cyanosis or edema Peripheral Pulses: Yes pulses 2+ throughout Skin no rashes or lesions noted Neuro oriented x3, CN's II-XII intact bilaterally and moves all extremities Sensorium / Orientation: awake and alert Psych affect normal Assessment & Plan Assessment/Plan (1) Renal cyst: (2) Splenic infarction: (3) Renal infarction: (4) Pleural effusion on right: (5) Acute respiratory failure with hypoxia: PLAN: #Acute hypoxic respiratory failure due to right sided recurrent pleural effusion * pulmonology on board * has had 3 thoracentesis in the last 3 months * on vancomycin and zosyn due to concerns for health associated pneumonia * for thoracentesis tomorrow * #Renal and splenic infarct * INR was subtherapeutic on admission. Patient sees her Coumadin was on hold for about a week for her to get her most recent thoracentesis about a week ago. Less likely why her INR is therapeutic and likely resulted in the infarcts. * She is on heparin drip for now. * will resume coumadin once she has had thoracentesis * HFpEF * Currently on Lasix drip. Fluid restriction 1500 cc daily. * CT showed dilated pulmonary arteries, this could possibly be pointing to pulmonary hypertension and she may benefit from right heart cath. * Pulmonology on board. * #Cystic renal mass: * Urology consulted. * Abdominal MRI ordered as this is concerning for malignancy. * #Paroxysmal A. fib * On heparin drip. 2D echo ordered. On Cardizem and metoprolol. * This is likely the cause of the renal and splenic infarcts. * DVT prophylaxis: heparin drip Charges/Coding Visit Charges Inpatient E&M: 56358 Subs Hosp L3
[2021-07-15 15:26] LABS: Pathologist Review Reviewed
--- NOTE | 2021-07-15 15:41 | CHAPLAIN ---
Type of Pastoral Visit _x__ Initial Visit ___ Follow-up Visit ___ On-call Visit ___ General Patient Visit ___ Spiritual Assessment ___ Family Conference ___ Bereavement ___ Rapid Response ___ Code Blue ___ Other (describe below) Pastoral Care Referral From _x__ Patient ___ Family ___ Nurse ___ Physician ___ Living Manager ___ Teacher Counselor ___ Other (describe below) Sacrament/Intervention _x__ Active listening ___ Anointing ___ Worship ___ Bereavement ___ Communion _x__ Citlaly exploration ___ ___ Life review _x__ Prayer ___ Reconciliation ___ Sacrament of Sick _x__ Supportive presence ___ Wedding ___ Other (describe below) Pastoral Comments patient has been seen before in previous admissions; pt gives update on her health issues; pt finds that her citlaly in God helps her to cope more than anything; pt welcomes spiritual care and prayer
--- NOTE | 2021-07-15 18:03 | PN.URO_ITS ---
Subjective Subjective Just finished dinner. Pain much better controlled today. Voiding clear yellow. Aware that she will follow up with after discharge. Is having thoracentesis done tomorrow. Objective Data Objective Data Vital Signs: Vital Signs Temp Pulse Resp BP Pulse Ox 97.8 F 105 H 18 103/70 99 07/15/21 15:15 07/15/21 15:15 07/15/21 15:15 07/15/21 15:15 07/15/21 15:15 Oxygen Flow Rate (L/min) 2 Oxygen Delivery Method Nasal Cannula Weight: 59.1 kg Body Mass Index (BMI) 26.4 Intake & Output: Intake and Output for Last 24 Hours 07/13/21 07/14/21 07/15/21 23:59 23:59 23:59 Intake Total 369.01 / 369.01 Output Total 600 / 600 Balance -230.99 / -230.99 Lab / Micro Data Result Diagrams: 07/15/21 08:16 07/15/21 08:16 Labs: Laboratory Results - last 24 hr 07/14/21 23:47: APTT 129.5 H* 07/15/21 08:16: WBC 15.4 H, RBC 4.49, Hgb 12.8, Hct 38.7, MCV 86.2, MCH 28.5, MCHC 33.1, RDW Std Deviation 47.8 H, RDW Coeff of Angelo 15.4 H, Plt Count 300, MPV 9.0, Immature Gran % (Auto) 0.500, Neut % (Auto) 78.2 H, Lymph % (Auto) 7.6 L, [place] % (Auto) 13.0 H, Eos % (Auto) 0.4, Baso % (Auto) 0.3, Absolute Neuts (auto) 12.0 H, Absolute Lymphs (auto) 1.16, Nucleated RBC % 0, Differential Comment COMMENT, Diff Path Review Reviewed 07/15/21 08:16: Sodium 136, Potassium 3.2 L, Chloride 100, Carbon Dioxide 31.0, Anion Gap 5, BUN 12, Creatinine 0.93, Estim Creat Clear Calc 39.44, Est GFR (MDRD) Af Amer 75, Est GFR (MDRD) Non-Af 62, BUN/Creatinine Ratio 12.9, Glucose 89, Calcium 8.1 L, Phosphorus 3.0, Magnesium Cancelled, Total Bilirubin 0.80, AST 94 H, ALT 73 H, Alkaline Phosphatase 93, Lactate Dehydrogenase 925 H, Total Protein 6.6, Albumin 2.5 L, Globulin 4.1, Albumin/Globulin Ratio 0.6 L, TSH 0.54 07/15/21 08:16: APTT 64.3 H 07/15/21 08:16: Rheumatoid Factor < 10.0 07/15/21 13:50: APTT 56.1 H Micro: Microbiology 07/14/21 13:50 Urine, Clean Catch Legionella Antigen - Final 07/14/21 13:50 Urine, Clean Catch Streptococcus pneumoniae Antigen (M - Final 07/14/21 16:15 Mucosa - Nasopharyngeal Rapid RSV (DFA) - Final 07/14/21 16:15 Mucosa - Nasopharyngeal Influenza Types A,B Direct FA (MORIAH) - Final 07/14/21 10:15 Nasal Secretion SARS-CoV-2 Antigen (Rapid) - Final Radiography Diagnostic Testing: Radiology Impression Abdomen MRI 07/15/21 08:56 IMPRESSION: 1. Abnormality of the left kidney which may represent an inflammatory or infectious process. No evidence of an enhancing neoplasm. 2. Hepatomegaly. 3. Large right pleural effusion. 4. Cardiomegaly. at 1112 Reported and signed by: Andrew Estrella MD Electronically Signed: Andrew Estrella MD at 11:11 EST Reading Location ID and State: [address] [place] [address] Tel , Service support , Physical Exam Const alert, oriented x3 and no apparent distress HEENT normocephalic and head/scalp atraumatic Neck supple Resp normal respiratory effort and no retractions Narrative: no herrera Skin no rashes or lesions noted, no jaundice, no petechiae and no mottling Neuro oriented x3, CN's II-XII intact bilaterally and moves all extremities Psych mental status grossly normal and thought process normal Assessment & Plan Assessment/Plan (1) Renal cyst: (2) Renal infarction: PLAN: stable and comfortable follow up imaging for renal malignancy
[2021-07-15] MEDS: Furosemide 500 MG in Empty Viaflex 50 mL 1 EACH CONT INF (19:02)
[2021-07-16] VITALS (14 sets, daily range): BP systolic 94–118; BP diastolic 59–84; PULSE 85–135; RESP 16–18; TEMP 36.6–36.8; O2SAT 93–99; BMI 26.4
--- NOTE | 2021-07-16 | IMM_PTH ---
PATIENT: NIMISHA CEJA LOC: [facility] U#:[id number] AGE/SX: 75/F ROOM: [facility] RE07/14/[address]: Dr. Oj Lorenzo DO : 1945 BED: 1 DIS: 07/22/2021 SPEC #: [id number] RECD: 07/20/21 14:53 STATUS: SOUYosef REQ #: [id number] FELICIA: 07/16/21 00:[address]: Oj Lorenzo DEPT: IMMUNOHISTOCHEMISTRY RECD BY: Nany Fernandez ENTERED: 07/20/21 14:54 SP TYPE: IMMUNO OTHR DR: MD Dr. Dwayne Yeager DO Dr. Holly Wyneski, MD Dr. Kathryn Lee, MD Amy Morrison Dr., INVESTIGATION OFFICER-C Tissues: THORACIC FLUID Procedures: Mike Ret (add) CK20 (add) CK5-6 (add) CK7 (add) CK8 (add) MACRO (add) TTF1 (add) Vimentin (add) Pankeratin (initial) PHYSICIAN & [place] [id number] SPECIMEN INFORMATION: Tissue Source: Thoracentesis fluid Clinical Info: Right pleural effusion Specimen Number: [id number] CPT code: 99623, 93244 x8 METHODOLOGY: Deparaffinized sections of prefer/formalin-fixed tissue or PAP/DQ stained slides are incubated with monoclonal/polyclonal antibodies/oligonucleotide probes. Localization is made via biotin free immunoperoxidase method. Appropriate controls are performed and reacted as expected. Results on target cell population are indicated in the following table: RESULTS: ANTIBODY / CLONE RESULT AE1-3 (AE1/AE3/PCK26) negative * CK7 (OV-TL12/30) negative * CK8 (87kxciY41) negative * CK20 (KS20.8) negative * Vimentin (V9) negative Macro (HAM-56) negative TTF-1 (8G7G3/1) negative CALRET (polyclonal) negative CK5-6 (D5 & 1684) negative * *?Positive in mesothelial cells. These tests were developed and their performance characteristics determined by [facility]. They may not have been cleared or approved by the U.S. Food and Drug Administration. The FDA has determined that such clearance or approval is not necessary. The above immunohistochemical/dualISH markers are ordered and reviewed by the Pathologist. INTERPRETATION: Thoracentesis fluid: Negative for malignant cells. SJ:rosana 07/21/2021
--- NOTE | 2021-07-16 | FLU_PTH ---
PATIENT: NIMISHA CEJA LOC: [facility] U#:[id number] AGE/SX: 75/F ROOM: [facility] RE07/14/[address]: Dr. Oj Lorenzo DO : 1945 BED: 1 DIS: 07/22/2021 SPEC #: [id number] RECD: 07/19/21 10:59 STATUS: PATO REJosi #: [id number] FELICIA: 07/16/21 00:[address]: Oj Lorenzo DEPT: CYTOLOGY RECD BY: Francisco Casillas ENTERED: 07/19/21 10:59 SP TYPE: Fluid OTHR DR: MD Dr. Dwayne eYager DO Dr. Holly Wyneski, MD Dr. Kathryn Lee, DO Dr. William Lago, MD Christina Muller, TELEVISION WRITER-C Tissues: THORACIC FLUID Procedures: Special Stain Group II Surgery Specimen Level IV Cytospin Fluid HEADER OPERATION: Thoracentesis, right PRE-OP DIAGNOSIS: Right pleural effusion TISSUE SUBMITTED: Thoracentesis fluid for cytology DIAGNOSIS CYTOLOGY Thoracentesis fluid for cytology (cytospin and cell block): Negative for malignant cells. See comment. JOSE A:rosana 07/20/2021 COMMENT Clinical correlation and appropriate follow up are necessary. Immunohistochemistry ([id number]) supports the above diagnosis. Please make reference to previous specimens ([id number], [id number] and [id number]), thoracentesis fluid for cytology with diagnosis of ?negative for malignant cells.? Case has been reviewed in consultation with Dr. Luis who concurs with the above diagnosis. IDC:AM CYTOLOGY STUDY Slides are reviewed. CYTOLOGY GROSS Received is 100 ml of yellow cloudy fluid labeled with the patient's name and and designated per the requisition as thoracentesis fluid. Submitted for cytology preparation including cell block. / rosana 07/19/2021 TC:5 CPT: 51117, 00585
[2021-07-16] MEDS: HEPARIN/D5w 25,000 UNITS 25,000 UNITS/250 ML IV.SOLN. 7 UNITS IV (01:49)
[2021-07-16 06:13] LABS: Absolute Lymphocyte Count 1.43 X10^3/uL (0.83-4.51); Basophil# 0.06 X10^3/uL; Basophil% 0.5 % (0-1); Eosinophil# 0.25 X10^3/uL; Hematocrit 41.8 % (37-47); Hemoglobin 13.6 g/dL (12.0-15.0); Lymphocyte # 1.43 X10^3/ul (0.83-4.51); Lymphocyte % 11.4 % (19-41); Mean Corp Hgb Conc 32.5 g/dL (32-36); Mean Corpuscular Hgb 27.9 pg (27.0-32.0); Mean Corpuscular Volume 85.8 fL (81-99); Mean Platelet Vol. 9.4 fl (6.2-12.0); Monocyte# 1.71 X10^3/uL; Monocyte% 13.7 % (0-10); NRBC Flagged by Analyzer 0 % (0-5); Neutrophil % 71.9 % (47-70); POSITIVE DIFFERENTIAL YES; Platelet Count 337 K/mm3 (150-450); RBC Distribution Width CV 15.2 % (11.6-14.6); RBC Distribution Width SD 47.7 fl (35.1-43.9); Red Blood Count 4.87 M/mm3 (4.2-5.4); White Blood Count 12.5 K/mm3 (4.4-11.0)
[2021-07-16 06:23] LABS: Differential Indicated SCAN CRITERIA MET
[2021-07-16 06:37] LABS: Anion Gap 7 (5-15); BUN 18 mg/dL (7-18); BUN/Creat Ratio 17.3 RATIO (10-20); Calcium,Total 8.5 mg/dL (8.5-10.1); Chloride 93 mmol/L (98-107); Creatinine, Serum 1.04 mg/dL (0.55-1.02); EST Glomerular Filtration Rate 55 mL/min (>60); Est Glom Filt Rate - Afr Amer 66 mL/min (>60); Estimated Creatinine Clearance 35.27 ml/min; Glucose 93 mg/dL (74-106); Potassium 2.7 mmol/L (3.5-5.1); Sodium Level 135 mmol/L (136-145)
[2021-07-16 06:39] LABS: Anisocytosis 1+
[2021-07-16 08:49] LABS: ALB/GLOB Ratio 0.6 RATIO (0.9-2.4); Globulin 4.8 g/dL (2.2-4.2); LDH 922 U/L (84-246); Protein, Total 7.8 g/dL (6.4-8.2)
[2021-07-16 09:01] LABS: Partial Thromboplast Time 43.3 Seconds (24.1-36.2)
[2021-07-16] MEDS: Potassium Chloride 10mEq/100mL 10 MEQ/100 ML IV.SOLN. 100 MEQ IV BOLUS ×4 (09:21→12:15)
[2021-07-16] MEDS: Potassium Chloride Oral Tablet 20 MEQ PO ×2 (09:22→17:24)
[2021-07-16] MEDS: Multivitamins,Therapeutic Tablet 1 TABLET PO (09:22)
[2021-07-16] MEDS: dilTIAZem CD 240 MG Capsule PO (10:15)
[2021-07-16] MEDS: Metoprolol Tartrate 25 MG Tablet 75 MG PO ×2 (10:15→20:42)
[2021-07-16] MEDS: Pantoprazole Sodium 40 MG Tablet PO (10:16)
--- NOTE | 2021-07-16 13:30 | US_ITS ---
PROCEDURE: ULTRASOUND GUIDED THORACENTESIS. DATE: 07/16/2021.. INDICATION: Female, 75 years old. Right pleural effusion. PHYSICIAN: Shashi Jacobo M.D. PROCEDURE: The risks, benefits, and alternatives to the procedure were explained to the patient. The specific risks of bleeding, infection, and pneumothorax requiring chest tube insertion were discussed and accepted. Written informed consent was obtained. Ultrasonographic evaluation of the right lower pleural space was carried out. An adequate pocket was identified. The patient was placed in the sitting, upright position. The overlying skin was prepped and draped in sterile fashion. 1% lidocaine was administered subcutaneously for local anesthesia. Under ultrasound guidance, a 5 Sinhala thoracentesis needle/catheter system was advanced into the right posterior lower pleural fluid collection. Approximately 670 mL of blood tinged cloudy fluid was drained. The catheter was removed, and a sterile dressing was applied. A specimen was collected and sent to the laboratory for analysis, as requested by the referring clinician. The patient tolerated the procedure well. A chest x-ray was ordered. US/Thoracentesis W US IMPRESSION: Ultrasound-guided right thoracentesis. Electronically Signed: Shashi Jacobo MD at 14:31 EST ,
--- NOTE | 2021-07-16 13:56 | RAD_ITS ---
STUDY: X-RAY CHEST REASON FOR EXAM: Female, 75 years old. POST THORA TECHNIQUE: AP inspiration and expiration views. COMPARISON: Comparison is made with prior study dated 07/09/2021. FINDINGS: The patient is status post right thoracentesis. No evidence of pneumothorax. Mild residual blunting of the right costophrenic angle persists. RAD/Chest Insp/Exp 2 View IMPRESSION: No evidence of pneumothorax on the immediate post right thoracentesis examination. Electronically Signed: Shashi Jacobo MD at 14:19 EST ,
[2021-07-16] MEDS: Lidocaine 2% (20 ml mdv) 20 ML Vial INFILT (14:06)
[2021-07-16 14:19] LABS: Cytology, Body Fluid / CSF SEE PATHOLOGY REPORT
--- NOTE | 2021-07-16 14:24 | PN.HOSP_ITS ---
Subjective Subjective Patient seen and examined. She has no active complaints today. She had an uneventful night. Review of systems otherwise negative. She is due for thoracentesis today. Objective Data Objective Data Vital Signs: Vital Signs Temp Pulse Resp BP Pulse Ox 98.0 F 114 H 16 108/72 98 07/16/21 09:15 07/16/21 14:08 07/16/21 14:08 07/16/21 14:08 07/16/21 09:15 Oxygen Flow Rate (L/min) [5] 2 Oxygen Flow Rate (L/min) [4] 2 Oxygen Flow Rate (L/min) [3] 2 Oxygen Flow Rate (L/min) [2] 2 Oxygen Flow Rate (L/min) [1 ( 2 Initial Baseline)] Oxygen Flow Rate (L/min) 2 Oxygen Delivery Method [5] Nasal Cannula Oxygen Delivery Method [4] Nasal Cannula Oxygen Delivery Method [3] Nasal Cannula Oxygen Delivery Method [2] Nasal Cannula Oxygen Delivery Method [1 ( Nasal Cannula Initial Baseline)] Oxygen Delivery Method Nasal Cannula Weight: 126 lb 1.671 oz Body Mass Index (BMI) 26.4 Intake & Output: Intake and Output for Last 24 Hours 07/14/21 07/15/21 07/16/21 23:59 23:59 23:59 Intake Total 866.31 / 866.31 832.38 / 832.38 Output Total 1200 / 1200 1770 / 1770 Balance -333.69 / -333.69 -937.62 / -937.62 Lab / Micro Data Result Diagrams: 07/16/21 05:36 07/16/21 05:36 Labs: Laboratory Results - last 24 hr 07/15/21 08:16: Diff Path Review Reviewed 07/15/21 20:10: APTT 55.0 H 07/16/21 05:36: WBC 12.5 H, RBC 4.87, Hgb 13.6, Hct 41.8, MCV 85.8, MCH 27.9, MCHC 32.5, RDW Std Deviation 47.7 H, RDW Coeff of Angelo 15.2 H, Plt Count 337, MPV 9.4, Immature Gran % (Auto) 0.500, Neut % (Auto) 71.9 H, Lymph % (Auto) 11.4 L, [place] % (Auto) 13.7 H, Eos % (Auto) 2.0, Baso % (Auto) 0.5, Absolute Neuts (auto) 9.0 H, Absolute Lymphs (auto) 1.43, Nucleated RBC % 0, Diff Path Review May foll, Anisocytosis 1+ 07/16/21 05:36: Sodium 135 L, Potassium 2.7 L*, Chloride 93 L, Carbon Dioxide 35.0 H, Anion Gap 7, BUN 18, Creatinine 1.04 H, Estim Creat Clear Calc 35.27, Est GFR (MDRD) Af Amer 66, Est GFR (MDRD) Non-Af 55 L, BUN/Creatinine Ratio 17.3, Glucose 93, Calcium 8.5 07/16/21 05:36: APTT 43.3 H 07/16/21 05:40: Lactate Dehydrogenase 922 H, Total Protein 7.8, Globulin 4.8 H, Albumin/Globulin Ratio 0.6 L 07/16/21 06:06: Magnesium Cancelled Micro: Microbiology 07/14/21 14:00 Blood Culture (Wb) - Anticubital Left Blood Culture - Pr eliminary No growth in 48 hours. 07/14/21 14:10 Blood Culture (Wb) - Left Hand Blood Culture - Preliminary No growth in 48 hours. 07/14/21 13:50 Urine, Clean Catch Legionella Antigen - Final 07/14/21 13:50 Urine, Clean Catch Streptococcus pneumoniae Antigen (M - Final 07/14/21 16:15 Mucosa - Nasopharyngeal Rapid RSV (DFA) - Final 07/14/21 16:15 Mucosa - Nasopharyngeal Influenza Types A,B Direct FA (MORIAH) - Final 07/14/21 10:15 Nasal Secretion SARS-CoV-2 Antigen (Rapid) - Final Radiography Diagnostic Testing: Radiology Impression Echocardiogram 07/14/21 15:47 Interpretation Summary The estimated ejection fraction is 60-65 %. No significant changes from prior echo Ordering Physician: Elisabeth Nascimento Referring Physician: CHRISTOPHER BONILLA Performed By: Lisbet Joyner, MABEL, RVT Chest X-Ray 07/16/21 13:56 IMPRESSION: No evidence of pneumothorax on the immediate post right thoracentesis examination. Electronically Signed: Shashi Jacobo MD at 14:19 EST , Physical Exam Const alert, oriented x3, no apparent distress and well nourished General Appearance: cooperative Exam Limitations: no limitations HEENT normocephalic, head/scalp atraumatic, hearing grossly normal bilaterally and moist oral mucous membranes Head and Scalp: normocephalic Eyes PERRL, EOMs intact bilaterally and conjunctivae normal Eyes Narrative: No scleral icterus Neck no lymphadenopathy, supple, no JVD and no carotid bruits Neck Narrative: Trachea midline, no thyroid enlargement Resp Resp Narrative: Markedly diminished breath sounds in the right upper, middle and lower lung flores. No wheezes or crackles. on 2L of oxygen by nasal canula Cardio regular rhythm, S1 normal heart sound, S2 normal heart sound, no murmurs, no rub, no gallops, no clicks and no JVD Cardio Narrative: afib, rate controlled GI normal to inspection, nondistended, normoactive bowel sounds, soft to palpation and non-distended Palpation: tender LUQ Extremity normal to inspection, full ROM and no clubbing, cyanosis or edema Peripheral Pulses: Yes pulses 2+ throughout Skin no rashes or lesions noted, no wounds, skin turgor normal, no jaundice, no petechiae and no mottling Neuro oriented x3, CN's II-XII intact bilaterally, moves all extremities and no focal motor deficits Sensorium / Orientation: awake and alert Speech: speech normal Motor Exam: strength 5/5 throughout Psych affect normal Psych Narrative: Affect is slightly flat but mood peers stable Assessment & Plan Assessment/Plan (1) Renal cyst: (2) Splenic infarction: (3) Renal infarction: (4) Pleural effusion on right: (5) Acute respiratory failure with hypoxia: PLAN: #Acute hypoxic respiratory failure due to right sided recurrent pleural effusion * pulmonology on board * for diagnostic and therapeutic thoracentesis today * on IV vancomycin and zosyn. * * #Renal and splenic infarct * INR was subtherapeutic on admission. Patient sees her Coumadin was on hold for about a week for her to get her most recent thoracentesis about a week ago. Less likely why her INR is therapeutic and likely resulted in the infarcts. * She is on heparin drip for now. * will resume coumadin once she has had thoracentesis and it is clear she is not having any other procedures. * HFpEF * Currently on Lasix drip. Fluid restriction 1500 cc daily. * CT showed dilated pulmonary arteries, this could possibly be pointing to pulmonary hypertension and she may benefit from right heart cath. * Pulmonology on board. * will dc drip after she has thoracentesis today. * 2D echo shows EF of 60-65%, similar to previous findings. * #Cystic renal mass: * Urology on board * abdominal MRI showed hepatomegaly and abnormality of the left kidney which may represent an inflammatory or infectious process with no evidence of an enhancing neoplasm. It also showed hepatomegaly, cardiomegaly and right-sided large pleural effusion. * follow up with urology on outpatient basis. * #Paroxysmal A. fib * On heparin drip. On Cardizem and metoprolol. * This is likely the cause of the renal and splenic infarcts. * DVT prophylaxis: heparin drip Charges/Coding Visit Charges Inpatient E&M: 76645 Subs Hosp L2
[2021-07-16 14:33] LABS: MG Sendout 1.9 mg/dL (1.6-2.3)
[2021-07-16 15:42] LABS: Body Fluid Mononuclear WBC # 1.778 10^3/uL; Body Fluid Mononuclear WBC % 96.4 %; Body Fluid Polynuclear WBC # 0.065 10^3/uL; Body Fluid Polynuclear WBC % 3.6 %; Red Cell Count/Body Fluid 0.025 10^6/ul; White Blood Count/Body Fluid 1.843 10^3/uL
--- NOTE | 2021-07-16 15:48 | CASEMGMT ---
Pt is agreeable to [facility] and provided list of [facility] providers including quality and resource use data and consistent with the pt's preferred geographic region, medical needs, and insurance network. CM to follow. Nerissa TODD CM
[2021-07-16 16:00] LABS: Auto B Fluid Analyzer BKGD Ct COUNTS W/IN LIMITS (W/IN LIMITS)
[2021-07-16 16:01] LABS: Source- Body Fluid THORACENTESIS
[2021-07-16 16:37] LABS: Protein, Body Fluid 4.1 g/dL (Not Establ.)
[2021-07-16 16:38] LABS: LDH,Body Fluid 270 Units/l (Not Establ.)
[2021-07-16 17:24] LABS: Appearance/Body Fluid TURBID; Color/Body Fluid SLIGHTLY PINK
[2021-07-16 17:40] LABS: Lymphocytes 62 %; Macrophages 22 %; Mesothelial Cells 9 %; Monocytes 6 %; Neutrophil (Segs) 1 %
[2021-07-16 17:42] LABS: Body Fluid QC Type(s) BF3Q
[2021-07-16 18:34] LABS: Vancomycin, Trough Level 6.6 ug/mL (5.0-15.0)
--- NOTE | 2021-07-16 20:11 | PCM.RX.CS ---
Consult Pharmacy has been consulted to manage selected antiobiotic: Vancomycin Type of Consult: Follow-up Labs: Sodium 135 mmol/L (136-145) L 07/16/21 05:36 Potassium 2.7 mmol/L (3.5-5.1) L* 07/16/21 05:36 Chloride 93 mmol/L (98-107) L 07/16/21 05:36 Carbon Dioxide 35.0 mmol/L (21.0-32.0) H 07/16/21 05:36 Anion Gap 7 (5-15) 07/16/21 05:36 BUN 18 mg/dL (7-18) 07/16/21 05:36 Creatinine 1.04 mg/dL (0.55-1.02) H 07/16/21 05:36 Est GFR (MDRD) Af Amer 66 mL/min (>60) 07/16/21 05:36 Est GFR (MDRD) Non-Af 55 mL/min (>60) L 07/16/21 05:36 BUN/Creatinine Ratio 17.3 RATIO (10-20) 07/16/21 05:36 Glucose 93 mg/dL (74-106) 07/16/21 05:36 Vancomycin Trough 6.6 ug/mL (5.0-15.0) 07/16/21 17:32 Microbiology: Microbiology 07/16/21 13:40 Fluid - Thoracentesis Fluid Gram Stain - Final 07/14/21 14:00 Blood Culture (Wb) - Anticubital Left Blood Culture - Preliminary No growth in 48 hours. 07/14/21 14:10 Blood Culture (Wb) - Left Hand Blood Culture - Preliminary No growth in 48 hours. 07/14/21 13:50 Urine, Clean Catch Legionella Antigen - Final 07/14/21 13:50 Urine, Clean Catch Streptococcus pneumoniae Antigen (M - Final 07/14/21 16:15 Mucosa - Nasopharyngeal Rapid RSV (DFA) - Final 07/14/21 16:15 Mucosa - Nasopharyngeal Influenza Types A,B Direct FA (MORIAH) - Final 07/14/21 10:15 Nasal Secretion SARS-CoV-2 Antigen (Rapid) - Final Goal Trough: 15-20 mcg/mL Pharmacy Plan for Drug Dosing: VANCOMYCIN LEVEL RECEIVED Current Vancomycin Dose: 750MG IV Q24H Number of Doses Received: 3 Vancomycin Level: 6.6 Hours Since Last Dose: 22.5HR Renal Function: 1.04 Renal Function Trend: STABLE Lab/Micro: PENDING Vancomycin Plan/Comments: Patient had a trough drawn which resulted in a value of 6.6 (goal 15-20). Will slightly increase dose to 750mg IV Q12hr and recheck a trough prior to 4th dose of new regimen Pending Level: 07/18/21 @9446 Pharmacy Service will continue to monitor and adjust dosing as required.
[2021-07-16 22:18] LABS: Partial Thromboplast Time 39.4 Seconds (24.1-36.2)
[2021-07-16] MEDS: Heparin Injection (Vial) 5,000 UNIT/ML VIAL IV (22:38)
[2021-07-16] MEDS: HEPARIN/D5w 25,000 UNITS 25,000 UNITS/250 ML IV.SOLN. 9 UNITS IV (22:44)
[2021-07-17] VITALS (15 sets, daily range): BP systolic 96–122; BP diastolic 66–80; PULSE 102–123; RESP 15–18; TEMP 36.3–37.7; O2SAT 92–100
[2021-07-17 05:26] LABS: Absolute Lymphocyte Count 1.28 X10^3/uL (0.83-4.51); Absolute Neutrophil Count 11.9 X10^3/uL (2.0-7.7); Basophil# 0.06 X10^3/uL; Basophil% 0.4 % (0-1); Eosinophil# 0.14 X10^3/uL; Eosinophils% 0.9 % (0-5); Hematocrit 39.4 % (37-47); Hemoglobin 12.7 g/dL (12.0-15.0); Lymphocyte # 1.28 X10^3/ul (0.83-4.51); Lymphocyte % 8.5 % (19-41); Mean Corp Hgb Conc 32.2 g/dL (32-36); Mean Corpuscular Hgb 27.4 pg (27.0-32.0); Mean Corpuscular Volume 85.1 fL (81-99); Mean Platelet Vol. 9.4 fl (6.2-12.0); Monocyte% 10.7 % (0-10); NRBC Flagged by Analyzer 0 % (0-5); Neutrophil # 11.86 X10^3/uL (2.7-7.7); POSITIVE DIFFERENTIAL YES; Platelet Count 305 K/mm3 (150-450); RBC Distribution Width CV 15.1 % (11.6-14.6); RBC Distribution Width SD 47.3 fl (35.1-43.9); Red Blood Count 4.63 M/mm3 (4.2-5.4)
[2021-07-17 05:31] LABS: Differential Indicated SCAN CRITERIA MET
[2021-07-17 05:39] LABS: Partial Thromboplast Time 67.3 Seconds (24.1-36.2)
[2021-07-17 05:51] LABS: Anion Gap 6 (5-15); BUN 17 mg/dL (7-18); Calcium,Total 8.6 mg/dL (8.5-10.1); Chloride 96 mmol/L (98-107); Creatinine, Serum 0.85 mg/dL (0.55-1.02); EST Glomerular Filtration Rate 69 mL/min (>60); Est Glom Filt Rate - Afr Amer 84 mL/min (>60); Estimated Creatinine Clearance 43.15 ml/min; Glucose 122 mg/dL (74-106); Potassium 3.5 mmol/L (3.5-5.1); Sodium Level 134 mmol/L (136-145)
[2021-07-17 05:58] LABS: Differential Comment SCANNED
--- NOTE | 2021-07-17 06:59 | PCM.PN.INT ---
Assessment & Plan Assessment/Plan (1) Pleural effusion on right: PLAN: RECOMMENDATIONS: 1. Wean supplemental oxygen as tolerated. 2. Resume outpatient diuretic regimen. 3. Continue antibiotics, pending culture results. If cultures are negative, antibiotics can be discontinued. 4. Await results of autoimmune work-up. 5. Encourage incentive spirometer use and mobilize patient as tolerated. 6. Recommend eventual right heart catheterization and secondary work-up for pH. This can be completed by her primary escrow representative on an outpatient basis. (Dr. Edwards at [facility]). 7. Will sign off at this time. Please call with any additional questions. IMPRESSIONS: 1. Recurrent right-sided pleural effusion Unclear etiology. Prior cell count with differential from June 2021 revealed mixed cellularity with lymphocyte predominance. Pleural fluid cytology on 3 occasions have been negative for malignant cells. The patient does appear to have right-sided heart dysfunction/pulmonary hypertension which could be a contributing etiology. Alternatively, the patient reported a history of rheumatoid arthritis which can also be associated with pleural effusions as well. Nevertheless, it is unclear what rheumatologic work-up has been completed in the past and why she has never been seen by a candle wrapper. The patient did undergo ultrasound-guided thoracentesis on July 16 with 670 mL of fluid removed. The fluid was again lymphocyte predominant. Cultures and cytology are pending. Per traditional Light's criteria, if at least one of the following three is fulfilled, the fluid would be considered an exudate: 1. Pleural fluid protein/serum protein ratio greater than 0.5 2. Pleural fluid LDH/serum LDH ratio greater than 0.6 3. Pleural fluid LDH greater than two thirds the upper limits of the laboratories normal serum LDH Based upon my review of the patient's pleural fluid analysis, along with serum LDH and total protein levels, the pleural fluid would be considered borderline exudative in nature. However, this could be secondary to the patient's use of diuretics. At this time, the patient still has an autoimmune panel pending including CCP antibodies and ROSA ISELA screen. She would likely benefit from further outpatient optimization of her diuretic regimen. If the patient's pleural effusion were to recur in the future, I would recommend that she be considered for admission to a tertiary care facility for evaluation by thoracic surgery. The patient should follow-up with her primary escrow representative, Dr. Edwards, within 2 weeks of discharge. 2. Decompensated right-sided heart failure/pulmonary hypertension Continue diuretic therapy as tolerated by hemodynamics and renal function. Ultimately, the patient would benefit from right-sided heart catheterization. Recommend secondary work-up for pulmonary hypertension, which can be completed on an outpatient basis by her primary escrow representative. 3. Paroxysmal atrial fibrillation/GERD/splenic infarct Complicates care, management, recovery and prognosis. Continue home medications as indicated. This note was generated with [employer] dictation software. It may contain incorrect words, spelling, and punctuation that were not noted in checking the note before signing. Subjective Subjective The patient was seen and examined at the bedside this morning. Events from the last 24 hours have been reviewed. The patient is currently afebrile, hemodynamically stable and maintaining appropriate oxygen saturations on 2 L/min via nasal cannula. The patient underwent ultrasound-guided thoracentesis yesterday with 670 mL of fluid removed. Breathing quality is improved. Objective Data Objective Data The patient's most recent lab work, culture data and imaging studies have all been personally reviewed. Vital Signs: Vital Signs Temp Pulse Resp BP Pulse Ox 97.5 F L 110 H 18 101/67 95 07/17/21 04:15 07/17/21 04:15 07/17/21 04:15 07/17/21 04:15 07/17/21 04:15 Oxygen Flow Rate (L/min) [5] 2 Oxygen Flow Rate (L/min) [4] 2 Oxygen Flow Rate (L/min) [3] 2 Oxygen Flow Rate (L/min) [2] 2 Oxygen Flow Rate (L/min) [1 ( 2 Initial Baseline)] Oxygen Flow Rate (L/min) 2 Oxygen Delivery Method [5] Nasal Cannula Oxygen Delivery Method [4] Nasal Cannula Oxygen Delivery Method [3] Nasal Cannula Oxygen Delivery Method [2] Nasal Cannula Oxygen Delivery Method [1 ( Nasal Cannula Initial Baseline)] Oxygen Delivery Method Nasal Cannula Weight: 57.4 kg Body Mass Index (BMI) 26.4 Intake & Output: Intake and Output for Last 24 Hours 07/15/21 07/16/21 07/17/21 23:59 23:59 23:59 Intake Total 866.31 / 866.31 1437.20 / 1437.20 315 / 315 Output Total 1200 / 1200 1770 / 1770 Balance -333.69 / -333.69 -332.80 / -332.80 315 / 315 Lab / Micro Data Result Diagrams: 07/17/21 04:51 07/17/21 04:51 Labs: Laboratory Results - last 24 hr 07/15/21 08:16: Magnesium 1.9 07/16/21 05:36: APTT 43.3 H 07/16/21 05:40: Lactate Dehydrogenase 922 H, Total Protein 7.8, Globulin 4.8 H, Albumin/Globulin Ratio 0.6 L 07/16/21 06:06: Magnesium Cancelled 07/16/21 13:40: Fluid Glucose 129 H, Fluid Total Protein 4.1, Fluid LDH 270 07/16/21 13:40: Fluid Source THORACENTESIS, Fluid Color SLIGHTLY PINK, Fluid Appearance TURBID, Fluid WBC 1.843, Fluid RBC 0.025, Fluid Tot Cell Count 2.040 H, Fld Polynuclear WBCs # 0.065, Fld Polynuclear WBCs % 3.6, Fluid Mononuclear WBCs 1.778, Fld Mononuclear WBCs % 96.4, Fluid Neutrophils 1, Fluid Lymphocytes 62, Fluid Monocytes 6, Fluid Macrophages 22, Fld Mesothelial Cells 9, Fl Pathologist Comment May follow, Fluid Comment 2 SEE COMMENT 07/16/21 17:32: Vancomycin Trough 6.6 07/16/21 21:33: APTT 39.4 H 07/17/21 04:51: WBC 15.0 H, RBC 4.63, Hgb 12.7, Hct 39.4, MCV 85.1, MCH 27.4, MCHC 32.2, RDW Std Deviation 47.3 H, RDW Coeff of Angelo 15.1 H, Plt Count 305, MPV 9.4, Immature Gran % (Auto) 0.500, Neut % (Auto) 79.0 H, Lymph % (Auto) 8.5 L, [place] % (Auto) 10.7 H, Eos % (Auto) 0.9, Baso % (Auto) 0.4, Absolute Neuts (auto) 11.9 H, Absolute Lymphs (auto) 1.28, Nucleated RBC % 0, Differential Comment SCANNED, Diff Path Review October07/17/21 04:51: Sodium 134 L, Potassium 3.5, Chloride 96 L, Carbon Dioxide 32.0, Anion Gap 6, BUN 17, Creatinine 0.85, Estim Creat Clear Calc 43.15, Est GFR (MDRD) Af Amer 84, Est GFR (MDRD) Non-Af 69, BUN/Creatinine Ratio 20.0, Glucose 122 H, Calcium 8.6 07/17/21 04:51: APTT 67.3 H Micro: Microbiology 07/16/21 13:40 Fluid - Thoracentesis Fluid Gram Stain - Final 07/14/21 14:00 Blood Culture (Wb) - Anticubital Left Blood Culture - Preliminary No growth in 48 hours. 07/14/21 14:10 Blood Culture (Wb) - Left Hand Blood Culture - Preliminary No growth in 48 hours. 07/14/21 13:50 Urine, Clean Catch Legionella Antigen - Final 07/14/21 13:50 Urine, Clean Catch Streptococcus pneumoniae Antigen (M - Final 07/14/21 16:15 Mucosa - Nasopharyngeal Rapid RSV (DFA) - Final 07/14/21 16:15 Mucosa - Nasopharyngeal Influenza Types A,B Direct FA (MORIAH) - Final 07/14/21 10:15 Nasal Secretion SARS-CoV-2 Antigen (Rapid) - Final Radiography Diagnostic Testing: Radiology Impression Echocardiogram 07/14/21 15:47 Interpretation Summary The estimated ejection fraction is 60-65 %. No significant changes from prior echo Ordering Physician: Elisabeth Nascimento Referring Physician: CHRISTOPHER BONILLA Performed By: Lisbet Joyner, RDCS, RVT Thoracentesis Ultrasound 07/16/21 13:30 IMPRESSION: Ultrasound-guided right thoracentesis. Electronically Signed: Shashi Jacobo MD at 14:31 EST , Chest X-Ray 07/16/21 13:56 IMPRESSION: No evidence of pneumothorax on the immediate post right thoracentesis examination. Electronically Signed: Shashi Jacobo MD at 14:19 EST , Physical Exam Const alert and no apparent distress Constitutional Narrative: Sitting in bedside recliner. General Appearance: cooperative HEENT normocephalic, head/scalp atraumatic and moist oral mucous membranes Eyes PERRL, EOMs intact bilaterally and conjunctivae normal Neck supple General: trachea midline Chest inspection of chest normal Resp normal respiratory effort Resp Narrative: Markedly improved aeration in right lung base Auscultation: Negative for rales, rhonchi or wheezes Cardio S1 normal heart sound and S2 normal heart sound Heart Sounds: murmur GI normal to inspection, nondistended, normoactive bowel sounds Extremity no clubbing, cyanosis or edema Skin no rashes or lesions noted Neuro CN's II-XII intact bilaterally, moves all extremities and no focal motor deficits Psych Mood & Affect: flat affect Charges/Coding Visit Charges Inpatient E&M: 44924 Subs Hosp L3
[2021-07-17] MEDS: Metoprolol Tartrate 25 MG Tablet 75 MG PO ×2 (08:46→23:01)
[2021-07-17] MEDS: dilTIAZem CD 240 MG Capsule PO (08:46)
[2021-07-17] MEDS: Multivitamins,Therapeutic Tablet 1 TABLET PO (08:46)
[2021-07-17] MEDS: Potassium Chloride Oral Tablet 20 MEQ PO ×2 (08:46→17:42)
[2021-07-17] MEDS: Pantoprazole Sodium 40 MG Tablet PO (08:46)
[2021-07-17 12:03] LABS: Partial Thromboplast Time 66.3 Seconds (24.1-36.2)
--- NOTE | 2021-07-17 12:55 | CASEMGMT ---
This RN CM to room and pt states unsure of HHC company, would like to talk to daughter. Pt states no preference for DME company. Green sheet left on chart for home oxygen, if need. CM to follow up with pt regarding HHC. SStaten PEYTON CM
[2021-07-17 14:49] LABS: ANTINUCLEAR ANTIBODIES DIRECT Negative (Negative)
--- NOTE | 2021-07-17 16:06 | PN.HOSP_ITS ---
Subjective Subjective Patient seen and examined. She had no active complaints. She denies cough, chest pain, palpitations, dizziness, nausea vomiting. Review of systems otherwise negative. She had thoracentesis yesterday with removal of 70 mils of fluid. Fluid analysis showed that is borderline exudative. Objective Data Objective Data Vital Signs: Vital Signs Temp Pulse Resp BP Pulse Ox 98.8 F 123 H 15 96/66 93 07/17/21 14:35 07/17/21 14:59 07/17/21 14:35 07/17/21 14:35 07/17/21 14:35 Oxygen Flow Rate (L/min) [5] 2 Oxygen Flow Rate (L/min) [4] 2 Oxygen Flow Rate (L/min) [3] 2 Oxygen Flow Rate (L/min) [2] 2 Oxygen Flow Rate (L/min) [1 ( 2 Initial Baseline)] Oxygen Flow Rate (L/min) 2 Oxygen Delivery Method [5] Nasal Cannula Oxygen Delivery Method [4] Nasal Cannula Oxygen Delivery Method [3] Nasal Cannula Oxygen Delivery Method [2] Nasal Cannula Oxygen Delivery Method [1 ( Nasal Cannula Initial Baseline)] Oxygen Delivery Method Room Air Weight: 126 lb 8.725 oz Body Mass Index (BMI) 26.4 Intake & Output: Intake and Output for Last 24 Hours 07/15/21 07/16/21 07/17/21 23:59 23:59 23:59 Intake Total 866.31 / 866.31 1437.20 / 1437.20 815 / 815 Output Total 1200 / 1200 1770 / 1770 Balance -333.69 / -333.69 -332.80 / -332.80 815 / 815 Lab / Micro Data Result Diagrams: 07/17/21 04:51 07/17/21 04:51 Labs: Laboratory Results - last 24 hr 07/15/21 13:50: ROSA ISELA Screen Negative 07/16/21 05:36: Magnesium 2.0 07/16/21 13:40: Fluid Glucose 129 H, Fluid Total Protein 4.1, Fluid LDH 270 07/16/21 13:40: Fluid Source THORACENTESIS, Fluid Color SLIGHTLY PINK, Fluid Appearance TURBID, Fluid Neutrophils 1, Fluid Lymphocytes 62, Fluid Monocytes 6, Fluid Macrophages 22, Fld Mesothelial Cells 9, Fl Pathologist Comment May follow, Fluid Comment 2 SEE COMMENT 07/16/21 17:32: Vancomycin Trough 6.6 07/16/21 21:33: APTT 39.4 H 07/17/21 04:51: WBC 15.0 H, RBC 4.63, Hgb 12.7, Hct 39.4, MCV 85.1, MCH 27.4, MCHC 32.2, RDW Std Deviation 47.3 H, RDW Coeff of Angelo 15.1 H, Plt Count 305, MPV 9.4, Immature Gran % (Auto) 0.500, Neut % (Auto) 79.0 H, Lymph % (Auto) 8.5 L, Lamb % (Auto) 10.7 H, Eos % (Auto) 0.9, Baso % (Auto) 0.4, Absolute Neuts (auto) 11.9 H, Absolute Lymphs (auto) 1.28, Nucleated RBC % 0, Differential Comment SCANNED, Diff Path Review October foll 07/17/21 04:51: Sodium 134 L, Potassium 3.5, Chloride 96 L, Carbon Dioxide 32.0, Anion Gap 6, BUN 17, Creatinine 0.85, Estim Creat Clear Calc 43.15, Est GFR (MDRD) Af Amer 84, Est GFR (MDRD) Non-Af 69, BUN/Creatinine Ratio 20.0, Glucose 122 H, Calcium 8.6 07/17/21 04:51: APTT 67.3 H 07/17/21 11:43: APTT 66.3 H Micro: Microbiology 07/16/21 13:40 Fluid - Thoracentesis Fluid Gram Stain - Final 07/16/21 13:40 Fluid - Thoracentesis Fluid Body Fluid Culture - Preliminary No growth-Final to follow 07/14/21 14:00 Blood Culture (Wb) - Anticubital Left Blood Culture - Preliminary No growth in 48 hours. 07/14/21 14:10 Blood Culture (Wb) - Left Hand Blood Culture - Preliminary No growth in 48 hours. 07/14/21 13:50 Urine, Clean Catch Legionella Antigen - Final 07/14/21 13:50 Urine, Clean Catch Streptococcus pneumoniae Antigen (M - Final 07/14/21 16:15 Mucosa - Nasopharyngeal Rapid RSV (DFA) - Final 07/14/21 16:15 Mucosa - Nasopharyngeal Influenza Types A,B Direct FA (MORIAH) - Final 02/09/22 10:15 Nasal Secretion SARS-CoV-2 Antigen (Rapid) - Final Physical Exam Const alert, oriented x3, no apparent distress and well nourished General Appearance: cooperative Exam Limitations: no limitations HEENT normocephalic, head/scalp atraumatic, hearing grossly normal bilaterally and moist oral mucous membranes Eyes PERRL, EOMs intact bilaterally and conjunctivae normal Eyes Narrative: No scleral icterus Neck no lymphadenopathy, supple, no JVD and no carotid bruits Resp normal respiratory effort, no retractions, no use of accessory muscles and No clear to auscultation bilaterally Resp Narrative: Markedly diminished breath sounds in the right upper, middle and lower lung flores. No wheezes or crackles. on 2L of oxygen by nasal canula Auscultation: crackles; Negative for rales, rhonchi or wheezes Cardio S1 normal heart sound, S2 normal heart sound, no murmurs, no rub, no gallops, no clicks and no JVD Cardio Narrative: afib, rate controlled GI normal to inspection, nondistended, normoactive bowel sounds, soft to palpation, non-tender and non-distended Extremity normal to inspection, full ROM and no clubbing, cyanosis or edema Peripheral Pulses: Yes pulses 2+ throughout Skin no rashes or lesions noted, no wounds, skin turgor normal, no jaundice, no petechiae and no mottling Neuro oriented x3, CN's II-XII intact bilaterally, moves all extremities and no focal motor deficits Sensorium / Orientation: awake and alert Speech: speech normal Motor Exam: strength 5/5 throughout Psych affect normal Assessment & Plan Assessment/Plan (1) Renal cyst: (2) Splenic infarction: (3) Renal infarction: (4) Pleural effusion on right: (5) Acute respiratory failure with hypoxia: PLAN: #Acute hypoxic respiratory failure due to right sided recurrent pleural effusion * pulmonology on board * had thoracentesis with removal of ~ 670mls of fluid. From fluid analysis appears to be borderline exudative. Per discussion with pulmonology, this could also be influenced by patient being on Lasix and so it is likely that it is transudate of. * Because of effusion is not very clear. It could be due to her right heart failure and pulmonary hypertension but an autoimmune process contributing to this cannot be excluded. * She has autoimmune work-up pending. Per pulmonology, if effusion recurs, will need to be seen at a tertiary center for pleurodesis to be considered. * on IV vancomycin and zosyn. * * #Renal and splenic infarct * INR was subtherapeutic on admission. Patient sees her Coumadin was on hold for about a week for her to get her most recent thoracentesis about a week ago. Less likely why her INR is therapeutic and likely resulted in the infarcts. * She is on heparin drip for now. * will resume coumadin once she has had thoracentesis and it is clear she is not having any other procedures. * resume coumadin tomorrow; continue heparin drip for today. * HFpEF * . Fluid restriction 1500 cc daily. * CT showed dilated pulmonary arteries, this could possibly be pointing to pulmonary hypertension and she may benefit from right heart cath. * Pulmonology on board. * heparin drip discontinued;l will resume coumadin. * 2D echo shows EF of 60-65%, similar to previous findings. * lasix drip dc;d. Start PO lasix * #Cystic renal mass: * Urology on board * abdominal MRI showed hepatomegaly and abnormality of the left kidney which may represent an inflammatory or infectious process with no evidence of an enhancing neoplasm. It also showed hepatomegaly, cardiomegaly and right-sided large pleural effusion. * follow up with urology on outpatient basis. * #Paroxysmal A. fib * On heparin drip. On Cardizem and metoprolol. * This is likely the cause of the renal and splenic infarcts. * resume coumadin * DVT prophylaxis: resume coumadin tomorrow. Continue heparin drip Charges/Coding Visit Charges Inpatient E&M: 58545 Subs Hosp L2
[2021-07-17] MEDS: Furosemide 40 MG Tablet PO (17:43)
[2021-07-17] MEDS: 0.9% Saline Lock 10 ML Syringe IV (18:15)
[2021-07-18] VITALS (11 sets, daily range): BP systolic 94–114; BP diastolic 61–77; PULSE 68–111; RESP 16–18; TEMP 36.8–37.6; O2SAT 92–93
[2021-07-18 05:30] LABS: Absolute Lymphocyte Count 1.56 X10^3/uL (0.83-4.51); Absolute Neutrophil Count 5.7 X10^3/uL (2.0-7.7); Basophil# 0.06 X10^3/uL; Basophil% 0.6 % (0-1); Eosinophil# 0.59 X10^3/uL; Eosinophils% 6.4 % (0-5); Hematocrit 37.8 % (37-47); Hemoglobin 12.3 g/dL (12.0-15.0); Lymphocyte # 1.56 X10^3/ul (0.83-4.51); Lymphocyte % 16.8 % (19-41); Mean Corp Hgb Conc 32.5 g/dL (32-36); Mean Corpuscular Hgb 28.3 pg (27.0-32.0); Mean Corpuscular Volume 87.1 fL (81-99); Mean Platelet Vol. 9.3 fl (6.2-12.0); NRBC Flagged by Analyzer 0 % (0-5); Neutrophil # 5.71 X10^3/uL (2.7-7.7); Neutrophil % 61.6 % (47-70); Platelet Count 296 K/mm3 (150-450); RBC Distribution Width CV 15.2 % (11.6-14.6); RBC Distribution Width SD 48.5 fl (35.1-43.9); Red Blood Count 4.34 M/mm3 (4.2-5.4); White Blood Count 9.3 K/mm3 (4.4-11.0)
[2021-07-18 05:49] LABS: International Normalized Ratio 1.2; Prothrombin Time (Protime)PT. 14.9 SECONDS (11.7-14.9)
[2021-07-18 05:56] LABS: Anion Gap 6 (5-15); BUN 17 mg/dL (7-18); BUN/Creat Ratio 19.5 RATIO (10-20); Calcium,Total 8.7 mg/dL (8.5-10.1); Chloride 99 mmol/L (98-107); Creatinine, Serum 0.87 mg/dL (0.55-1.02); EST Glomerular Filtration Rate 67 mL/min (>60); Est Glom Filt Rate - Afr Amer 82 mL/min (>60); Estimated Creatinine Clearance 42.16 ml/min; Glucose 93 mg/dL (74-106); Potassium 3.5 mmol/L (3.5-5.1); Sodium Level 136 mmol/L (136-145)
--- NOTE | 2021-07-18 06:15 | NURSING ---
Aptt came back at 53, Heprin increased to 10/hr, next aptt to be drawn at 1159
[2021-07-18] MEDS: Potassium Chloride Oral Tablet 20 MEQ PO ×2 (08:24→17:08)
[2021-07-18] MEDS: dilTIAZem CD 240 MG Capsule PO (08:24)
[2021-07-18] MEDS: Metoprolol Tartrate 25 MG Tablet 75 MG PO ×2 (08:24→21:25)
[2021-07-18] MEDS: Multivitamins,Therapeutic Tablet 1 TABLET PO (08:25)
[2021-07-18] MEDS: Pantoprazole Sodium 40 MG Tablet PO (08:25)
[2021-07-18] MEDS: Furosemide 40 MG Tablet PO ×2 (08:25→17:08)
[2021-07-18 12:15] LABS: Partial Thromboplast Time 59.7 Seconds (24.1-36.2)
--- NOTE | 2021-07-18 15:31 | PN.HOSP_ITS ---
Subjective Subjective Patient seen and examined. She was lying comfortably in bed and had no active complaints. She denied any chest pain, palpitaitons, dizziness, nausea or vomiting. Review of systems is otherwise negative. Objective Data Objective Data Vital Signs: Vital Signs Temp Pulse Resp BP Pulse Ox 98.2 F 86 16 94/61 93 07/18/21 13:43 07/18/21 14:59 07/18/21 13:43 07/18/21 13:43 07/18/21 13:43 Oxygen Flow Rate (L/min) [5] 2 Oxygen Flow Rate (L/min) [4] 2 Oxygen Flow Rate (L/min) [3] 2 Oxygen Flow Rate (L/min) [2] 2 Oxygen Flow Rate (L/min) [1 ( 2 Initial Baseline)] Oxygen Flow Rate (L/min) 2 Oxygen Delivery Method [5] Nasal Cannula Oxygen Delivery Method [4] Nasal Cannula Oxygen Delivery Method [3] Nasal Cannula Oxygen Delivery Method [2] Nasal Cannula Oxygen Delivery Method [1 ( Nasal Cannula Initial Baseline)] Oxygen Delivery Method Room Air Weight: 129 lb 6.581 oz Body Mass Index (BMI) 26.4 Intake & Output: Intake and Output for Last 24 Hours 07/16/21 07/17/21 07/18/21 23:59 23:59 23:59 Intake Total 1437.20 / 1437.20 1380 / 1380 539.47 / 539.47 Output Total 1770 / 1770 Balance -332.80 / -332.80 1380 / 1380 539.47 / 539.47 Lab / Micro Data Result Diagrams: 07/18/21 05:27 07/18/21 05:27 Labs: Laboratory Results - last 24 hr 07/18/21 05:27: WBC 9.3, RBC 4.34, Hgb 12.3, Hct 37.8, MCV 87.1, MCH 28.3, MCHC 32.5, RDW Std Deviation 48.5 H, RDW Coeff of Angelo 15.2 H, Plt Count 296, MPV 9.3, Immature Gran % (Auto) 0.600, Neut % (Auto) 61.6, Lymph % (Auto) 16.8 L, Payne % (Auto) 14.0 H, Eos % (Auto) 6.4 H, Baso % (Auto) 0.6, Absolute Neuts (auto) 5.7, Absolute Lymphs (auto) 1.56, Nucleated RBC % 0 07/18/21 05:27: Sodium 136, Potassium 3.5, Chloride 99, Carbon Dioxide 31.0, Anion Gap 6, BUN 17, Creatinine 0.87, Estim Creat Clear Calc 42.16, Est GFR (MDRD) Af Amer 82, Est GFR (MDRD) Non-Af 67, BUN/Creatinine Ratio 19.5, Glucose 93, Calcium 8.7 07/18/21 05:27: PT 14.9, INR 1.2, APTT 53.0 H 07/18/21 11:50: APTT 59.7 H Micro: Microbiology 07/16/21 13:40 Fluid - Thoracentesis Fluid Gram Stain - Final 07/16/21 13:40 Fluid - Thoracentesis Fluid Body Fluid Culture - Preliminary No growth-Final to follow 07/16/21 13:40 Fluid - Thoracentesis Fluid Anaerobic Culture - Preliminary No growth in 48 hours. 07/14/21 14:00 Blood Culture (Wb) - Anticubital Left Blood Culture - Preliminary No growth in 48 hours. 07/14/21 14:10 Blood Culture (Wb) - Left Hand Blood Culture - Preliminary No growth in 48 hours. 07/14/21 13:50 Urine, Clean Catch Legionella Antigen - Final 07/14/21 13:50 Urine, Clean Catch Streptococcus pneumoniae Antigen (M - Final 07/14/21 16:15 Mucosa - Nasopharyngeal Rapid RSV (DFA) - Final 07/14/21 16:15 Mucosa - Nasopharyngeal Influenza Types A,B Direct FA (MORIAH) - Final 07/14/21 10:15 Nasal Secretion SARS-CoV-2 Antigen (Rapid) - Final Physical Exam Const alert, oriented x3, no apparent distress and well nourished General Appearance: cooperative Exam Limitations: no limitations HEENT normocephalic, head/scalp atraumatic, hearing grossly normal bilaterally and moist oral mucous membranes Head and Scalp: normocephalic Eyes PERRL, EOMs intact bilaterally and conjunctivae normal Neck no lymphadenopathy, supple, no JVD and no carotid bruits Neck Narrative: Trachea midline, no thyroid enlargement Resp normal respiratory effort, no retractions, no use of accessory muscles and No clear to auscultation bilaterally Resp Narrative: mildly diminished breath sounds bibasally, especially in the right lung flores. No wheezes or crackles. Auscultation: crackles; Negative for rales, rhonchi or wheezes Cardio S1 normal heart sound, S2 normal heart sound, no murmurs, no rub, no gallops, no clicks and no JVD Cardio Narrative: afib, rate controlled GI normal to inspection, nondistended, normoactive bowel sounds, soft to palpation, non-tender and non-distended Palpation: tender LUQ Extremity normal to inspection, full ROM and no clubbing, cyanosis or edema Peripheral Pulses: Yes pulses 2+ throughout Skin no rashes or lesions noted, no wounds, skin turgor normal, no jaundice, no petechiae and no mottling Neuro oriented x3, CN's II-XII intact bilaterally, moves all extremities and no focal motor deficits Sensorium / Orientation: awake and alert Speech: speech normal Motor Exam: strength 5/5 throughout Psych affect normal Assessment & Plan Assessment/Plan (1) Renal cyst: (2) Splenic infarction: (3) Renal infarction: (4) Pleural effusion on right: (5) Acute respiratory failure with hypoxia: PLAN: #Acute hypoxic respiratory failure due to right sided recurrent pleural effusion * pulmonology on board * had thoracentesis with removal of ~ 670mls of fluid. From fluid analysis appears to be borderline exudative. Per discussion with pulmonology, this could also be influenced by patient being on Lasix and so it is likely that it is transudate of. * Because of effusion is not very clear. It could be due to her right heart failure and pulmonary hypertension but an autoimmune process contributing to this cannot be excluded. * She has autoimmune work-up pending. Per pulmonology, if effusion recurs, will need to be seen at a tertiary center for pleurodesis to be considered. * on IV vancomycin and zosyn. DC antibiotics. Pleural fluid culture is negative. * #Renal and splenic infarct * INR was subtherapeutic on admission. Patient sees her Coumadin was on hold for about a week for her to get her most recent thoracentesis about a week ago. Less likely why her INR is therapeutic and likely resulted in the infarcts. * She is on heparin drip for now. * coumadin resumed today. Will continue bridging with heparin drip for now until INR is therapeutic * HFpEF * . Fluid restriction 1500 cc daily. * CT showed dilated pulmonary arteries, this could possibly be pointing to pulmonary hypertension and she may benefit from right heart cath. * Pulmonology on board. * 2D echo shows EF of 60-65%, similar to previous findings. * lasix drip dc;d. Start PO lasix * * #Cystic renal mass: * Urology on board * abdominal MRI showed hepatomegaly and abnormality of the left kidney which may represent an inflammatory or infectious process with no evidence of an enhancing neoplasm. It also showed hepatomegaly, cardiomegaly and right-sided large pleural effusion. * follow up with urology on outpatient basis. * #Paroxysmal A. fib * On heparin drip. On Cardizem and metoprolol. * This is likely the cause of the renal and splenic infarcts. * resume coumadin today, whilst briding with heparin. * DVT prophylaxis: coumadin resumed today; bridging with heparin. Disposition: anticipate discharge once INR is therapeutic. INR is 1.2 Charges/Coding Visit Charges Inpatient E&M: 05016 Subs Hosp L2
[2021-07-18] MEDS: 0.9% Saline Lock 10 ML Syringe IV (16:55)
[2021-07-18] MEDS: Jantoven 2 MG Tablet PO (17:08)
[2021-07-18 18:02] LABS: Partial Thromboplast Time 54.8 Seconds (24.1-36.2)
[2021-07-18 18:16] LABS: Vancomycin, Trough Level 16.8 ug/mL (5.0-15.0)
[2021-07-19] VITALS (29 sets, daily range): BP systolic 86–121; BP diastolic 57–86; PULSE 67–122; RESP 15–30; TEMP 36.5–37.1; O2SAT 94–98
[2021-07-19 05:49] LABS: Absolute Lymphocyte Count 1.69 X10^3/uL (0.83-4.51); Absolute Neutrophil Count 5.3 X10^3/uL (2.0-7.7); Basophil# 0.07 X10^3/uL; Basophil% 0.8 % (0-1); Eosinophil# 0.73 X10^3/uL; Eosinophils% 8.1 % (0-5); Hematocrit 38.3 % (37-47); Hemoglobin 12.4 g/dL (12.0-15.0); Lymphocyte # 1.69 X10^3/ul (0.83-4.51); Lymphocyte % 18.7 % (19-41); Mean Corp Hgb Conc 32.4 g/dL (32-36); Mean Corpuscular Hgb 28.1 pg (27.0-32.0); Mean Corpuscular Volume 86.8 fL (81-99); Mean Platelet Vol. 9.3 fl (6.2-12.0); Monocyte# 1.17 X10^3/uL; Monocyte% 12.9 % (0-10); NRBC Flagged by Analyzer 0 % (0-5); Neutrophil # 5.32 X10^3/uL (2.7-7.7); Neutrophil % 58.7 % (47-70); Platelet Count 317 K/mm3 (150-450); RBC Distribution Width CV 15.5 % (11.6-14.6); RBC Distribution Width SD 49.4 fl (35.1-43.9); Red Blood Count 4.41 M/mm3 (4.2-5.4); White Blood Count 9.1 K/mm3 (4.4-11.0)
[2021-07-19 05:56] LABS: Partial Thromboplast Time 64.5 Seconds (24.1-36.2)
[2021-07-19 06:14] LABS: Anion Gap 7 (5-15); BUN 13 mg/dL (7-18); BUN/Creat Ratio 17.5 RATIO (10-20); Calcium,Total 8.5 mg/dL (8.5-10.1); Chloride 100 mmol/L (98-107); Creatinine, Serum 0.74 mg/dL (0.55-1.02); EST Glomerular Filtration Rate 81 mL/min (>60); Est Glom Filt Rate - Afr Amer 98 mL/min (>60); Estimated Creatinine Clearance 36.68 ml/min; Glucose 84 mg/dL (74-106); Potassium 3.8 mmol/L (3.5-5.1); Sodium Level 137 mmol/L (136-145)
[2021-07-19] MEDS: dilTIAZem CD 240 MG Capsule PO (08:08)
[2021-07-19] MEDS: Metoprolol Tartrate 25 MG Tablet 75 MG PO (08:08)
[2021-07-19] MEDS: Furosemide 40 MG Tablet PO (08:08)
[2021-07-19] MEDS: Multivitamins,Therapeutic Tablet 1 TABLET PO (08:08)
[2021-07-19] MEDS: Potassium Chloride Oral Tablet 20 MEQ PO ×2 (08:08→17:22)
[2021-07-19] MEDS: Pantoprazole Sodium 40 MG Tablet PO (08:09)
[2021-07-19 09:43] LABS: Pathologist Review Reviewed
--- NOTE | 2021-07-19 12:00 | CASEMGMT ---
Addendum entered by Mayra Jones 07/19/21 15:14: Call back from Jose at [facility] and they can accept pt with SOC 07/22/21. Nerissa RN CM Addendum entered by Mayra Jones 07/19/21 14:39: This RN CM has not heard back from pt's daughter and this RN CM to room to see if she is here. 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 Pt states, 'Well can't I just decide myself?' Pt chose [facility] for SN, PT/OT and referral to Jose at [facility]. Order placed and this RN CM awaiting a call back. Nerissa RN CM Original Note: This RN CM to room to see if pt decided on [facility] agency and she states she did not discuss with daughter yet. She states she would like this RN CM to call daughter, Elle, regarding [facility]. Message left for Elle to call this RN CM back. Nerissa TODD CM
--- NOTE | 2021-07-19 12:00 | CASEMGMT ---
This RN CM to room
[2021-07-19] MEDS: dilTIAZem 25 MG/5 ML Vial 10 MG IV BOLUS (13:27)
[2021-07-19 13:48] LABS: Pathologist Comment/Body Fluid Reviewed
[2021-07-19 13:52] LABS: Pathologist Review Reviewed
--- NOTE | 2021-07-19 14:55 | PCM.PN.HOSP ---
Subjective Subjective Feels well. Denies shortness of breath, chest pain, palpiations. Objective Data Objective Data Vital Signs: Vital Signs Temp Pulse Resp BP Pulse Ox 36.7 C 97 29 H 103/71 96 07/19/21 08:03 07/19/21 13:39 07/19/21 13:27 07/19/21 13:39 07/19/21 13:27 Oxygen Flow Rate (L/min) [5] 2 Oxygen Flow Rate (L/min) [4] 2 Oxygen Flow Rate (L/min) [3] 2 Oxygen Flow Rate (L/min) [2] 2 Oxygen Flow Rate (L/min) [1 ( 2 Initial Baseline)] Oxygen Flow Rate (L/min) 2 Oxygen Delivery Method [5] Nasal Cannula Oxygen Delivery Method [4] Nasal Cannula Oxygen Delivery Method [3] Nasal Cannula Oxygen Delivery Method [2] Nasal Cannula Oxygen Delivery Method [1 ( Nasal Cannula Initial Baseline)] Oxygen Delivery Method Room Air Weight: 49.2 kg Body Mass Index (BMI) 26.4 Intake & Output: Intake and Output for Last 24 Hours 07/17/21 07/18/21 07/19/21 23:59 23:59 23:59 Intake Total 1380 / 1380 1103.33 / 1103.33 330.5 / 330.5 Balance 1380 / 1380 1103.33 / 1103.33 330.5 / 330.5 Lab / Micro Data Result Diagrams: 07/19/21 05:14 07/19/21 05:14 Labs: Laboratory Results - last 24 hr 07/16/21 05:36: Diff Path Review Reviewed 07/16/21 13:40: Fl Pathologist Comment Reviewed 07/17/21 04:51: Diff Path Review Reviewed 07/18/21 17:30: Vancomycin Trough 16.8 H 07/18/21 17:30: APTT 54.8 H 07/19/21 05:14: WBC 9.1, RBC 4.41, Hgb 12.4, Hct 38.3, MCV 86.8, MCH 28.1, MCHC 32.4, RDW Std Deviation 49.4 H, RDW Coeff of Angelo 15.5 H, Plt Count 317, MPV 9.3, Immature Gran % (Auto) 0.800, Neut % (Auto) 58.7, Lymph % (Auto) 18.7 L, [place] % (Auto) 12.9 H, Eos % (Auto) 8.1 H, Baso % (Auto) 0.8, Absolute Neuts (auto) 5.3, Absolute Lymphs (auto) 1.69, Nucleated RBC % 0 07/19/21 05:14: Sodium 137, Potassium 3.8, Chloride 100, Carbon Dioxide 30.0, Anion Gap 7, BUN 13, Creatinine 0.74, Estim Creat Clear Calc 36.68, Est GFR (MDRD) Af Amer 98, Est GFR (MDRD) Non-Af 81, BUN/Creatinine Ratio 17.5, Glucose 84, Calcium 8.5 07/19/21 05:14: APTT 64.5 H Micro: Microbiology 07/14/21 14:00 Blood Culture (Wb) - Anticubital Left Blood Culture - Final No growth in 5 days. 07/14/21 14:10 Blood Culture (Wb) - Left Hand Blood Culture - Final No growth in 5 days. 07/16/21 13:40 Fluid - Thoracentesis Fluid Gram Stain - Final 07/16/21 13:40 Fluid - Thoracentesis Fluid Body Fluid Culture - Final No growth aerobically. 07/16/21 13:40 Fluid - Thoracentesis Fluid Anaerobic Culture - Preliminary No growth in 48 hours. 07/14/21 13:50 Urine, Clean Catch Legionella Antigen - Final 07/14/21 13:50 Urine, Clean Catch Streptococcus pneumoniae Antigen (M - Final 07/14/21 16:15 Mucosa - Nasopharyngeal Rapid RSV (DFA) - Final 07/14/21 16:15 Mucosa - Nasopharyngeal Influenza Types A,B Direct FA (MORIAH) - Final 07/14/21 10:15 Nasal Secretion SARS-CoV-2 Antigen (Rapid) - Final Physical Exam Const alert Constitutional Narrative: up in chair. no respiratory distress. no conversational dyspnea Neck no lymphadenopathy Resp normal respiratory effort, no retractions, no use of accessory muscles and clear to auscultation bilaterally Cardio Cardio Narrative: irregularly irregular. GI normal to inspection, nondistended, normoactive bowel sounds, soft to palpation, non-tender and non-distended Extremity normal to inspection Assessment & Plan Assessment/Plan (1) Exudative pleural effusion: (2) Splenic infarction: (3) Renal infarction: (4) Chronic atrial fibrillation with RVR: PLAN: 1. Exudative pleural effusion unclear etiology may be due to RA prior cytology has been negative, though cannot definitively rule out malignancy follow up with pulmonology as outpt 2. Afib with RVR refractory despite PO dilt and metoprolol start dilt gtt Echo on the shows an EF of 60-65% on hep gtt and warfarin 3. Debility no SNF plan for home with home care 4. VTE prophylaxis: not indicated as already anticoagulated DW pt's son in law. Greater then 35 minutes of which greater than for percent of time was discussed with the patient but also discussing with the patient's son-in-law and explained her case. He expressed concerns about the patient going home. He would like for his , the patient's daughter, to be present when she does go home though the patient does live with her and other family members as well. Charges/Coding Visit Charges Inpatient E&M: 23258 Subs Hosp L3
[2021-07-19] MEDS: Enoxaparin 60 MG/0.6 ML Syringe 50 MG SC (17:21)
[2021-07-20] VITALS (26 sets, daily range): BP systolic 86–134; BP diastolic 60–89; PULSE 78–129; RESP 18–27; TEMP 36.3–36.9; O2SAT 90–96
[2021-07-20] MEDS: Enoxaparin 60 MG/0.6 ML Syringe 50 MG SC ×2 (06:11→17:18)
[2021-07-20 06:14] LABS: Absolute Lymphocyte Count 1.56 X10^3/uL (0.83-4.51); Absolute Neutrophil Count 6.5 X10^3/uL (2.0-7.7); Basophil# 0.09 X10^3/uL; Basophil% 0.9 % (0-1); Eosinophil# 0.63 X10^3/uL; Eosinophils% 6.2 % (0-5); Hemoglobin 12.1 g/dL (12.0-15.0); Lymphocyte # 1.56 X10^3/ul (0.83-4.51); Lymphocyte % 15.3 % (19-41); Mean Corp Hgb Conc 32.7 g/dL (32-36); Mean Corpuscular Hgb 28.1 pg (27.0-32.0); Mean Corpuscular Volume 85.8 fL (81-99); Mean Platelet Vol. 9.3 fl (6.2-12.0); Monocyte# 1.25 X10^3/uL; Monocyte% 12.3 % (0-10); NRBC Flagged by Analyzer 0 % (0-5); Neutrophil # 6.54 X10^3/uL (2.7-7.7); Neutrophil % 64.1 % (47-70); Platelet Count 338 K/mm3 (150-450); RBC Distribution Width CV 15.8 % (11.6-14.6); Red Blood Count 4.31 M/mm3 (4.2-5.4); White Blood Count 10.2 K/mm3 (4.4-11.0)
[2021-07-20 06:29] LABS: International Normalized Ratio 1.1
[2021-07-20 06:30] LABS: Partial Thromboplast Time 32.3 Seconds (24.1-36.2)
[2021-07-20 06:41] LABS: Anion Gap 4 (5-15); BUN 14 mg/dL (7-18); BUN/Creat Ratio 14.9 RATIO (10-20); Calcium,Total 8.7 mg/dL (8.5-10.1); Chloride 102 mmol/L (98-107); Creatinine, Serum 0.94 mg/dL (0.55-1.02); EST Glomerular Filtration Rate 61 mL/min (>60); Est Glom Filt Rate - Afr Amer 74 mL/min (>60); Estimated Creatinine Clearance 39.02 ml/min; Glucose 90 mg/dL (74-106); Potassium 4.3 mmol/L (3.5-5.1); Sodium Level 136 mmol/L (136-145)
[2021-07-20] MEDS: dilTIAZem CD 240 MG Capsule PO (08:23)
[2021-07-20] MEDS: Metoprolol Tartrate 100 MG Tablet PO ×2 (08:23→20:47)
[2021-07-20] MEDS: Pantoprazole Sodium 40 MG Tablet PO (08:24)
[2021-07-20] MEDS: Multivitamins,Therapeutic Tablet 1 TABLET PO (08:25)
[2021-07-20] MEDS: Furosemide 40 MG Tablet PO ×2 (08:25→17:17)
[2021-07-20] MEDS: Potassium Chloride Oral Tablet 20 MEQ PO ×2 (08:25→17:18)
--- NOTE | 2021-07-20 11:43 | CASEMGMT ---
Per Wendy RN, pt does not qualify for home oxygen. Pt is set up with [facility] at discharge and plan is for SOC 07/22/21. Nerissa TODD CM
[2021-07-20 15:07] LABS: CCP IgG Antibodies 25 units (0-19)
--- NOTE | 2021-07-20 15:49 | PN.HOSP_ITS ---
Subjective Subjective Feels well. Breathing well. Objective Data Objective Data Vital Signs: Vital Signs Temp Pulse Resp BP Pulse Ox 36.9 C 115 H 18 98/60 93 07/20/21 14:50 07/20/21 14:50 07/20/21 14:50 07/20/21 14:50 07/20/21 14:50 Oxygen Flow Rate (L/min) [5] 2 Oxygen Flow Rate (L/min) [4] 2 Oxygen Flow Rate (L/min) [3] 2 Oxygen Flow Rate (L/min) [2] 2 Oxygen Flow Rate (L/min) [1 ( 2 Initial Baseline)] Oxygen Flow Rate (L/min) 2 Oxygen Delivery Method [5] Nasal Cannula Oxygen Delivery Method [4] Nasal Cannula Oxygen Delivery Method [3] Nasal Cannula Oxygen Delivery Method [2] Nasal Cannula Oxygen Delivery Method [1 ( Nasal Cannula Initial Baseline)] Oxygen Delivery Method Room Air Weight: 59.1 kg Body Mass Index (BMI) 26.4 Intake & Output: Intake and Output for Last 24 Hours 07/18/21 07/19/21 07/20/21 23:59 23:59 23:59 Intake Total 1103.33 / 1103.33 720.92 / 725.92 292.5 / 292.5 Balance 1103.33 / 1103.33 720.92 / 725.92 292.5 / 292.5 Lab / Micro Data Result Diagrams: 07/20/21 05:50 07/20/21 05:50 Labs: Laboratory Results - last 24 hr 07/15/21 13:50: STACI-1 Antibody Not Reportable, SS-A/Ro IgG Antibody Not Reportable, SS-B/La IgG Antibody Not Reportable, Sm ([place]) Antibody Not Reportable, CONTINUOUS PICKLING LINE PICKLER Antibody Not Reportable, Scl-70 Scleroderma Ab Not Reportable, Double Strand DNA Ab Not Reportable, Centromere B Antibody Not Reportable 07/15/21 13:50: Cycl Citrul Peptide IgG 25 H 07/20/21 05:50: WBC 10.2, RBC 4.31, Hgb 12.1, Hct 37.0, MCV 85.8, MCH 28.1, MCHC 32.7, RDW Std Deviation 49.0 H, RDW Coeff of Angelo 15.8 H, Plt Count 338, MPV 9.3, Immature Gran % (Auto) 1.200 H, Neut % (Auto) 64.1, Lymph % (Auto) 15.3 L, [place] % (Auto) 12.3 H, Eos % (Auto) 6.2 H, Baso % (Auto) 0.9, Absolute Neuts (auto) 6.5, Absolute Lymphs (auto) 1.56, Nucleated RBC % 0 07/20/21 05:50: Sodium 136, Potassium 4.3, Chloride 102, Carbon Dioxide 30.0, Anion Gap 4 L, BUN 14, Creatinine 0.94, Estim Creat Clear Calc 39.02, Est GFR (MDRD) Af Amer 74, Est GFR (MDRD) Non-Af 61, BUN/Creatinine Ratio 14.9, Glucose 90, Calcium 8.7 07/20/21 05:50: PT 14.0, INR 1.1, APTT 32.3 Micro: Microbiology 07/14/21 14:00 Blood Culture (Wb) - Anticubital Left Blood Culture - Final No growth in 5 days. 07/14/21 14:10 Blood Culture (Wb) - Left Hand Blood Culture - Final No growth in 5 days. 07/16/21 13:40 Fluid - Thoracentesis Fluid Gram Stain - Final 07/16/21 13:40 Fluid - Thoracentesis Fluid Body Fluid Culture - Final No growth aerobically. 07/16/21 13:40 Fluid - Thoracentesis Fluid Anaerobic Culture - Preliminary No growth in 48 hours. 07/14/21 13:50 Urine, Clean Catch Legionella Antigen - Final 07/14/21 13:50 Urine, Clean Catch Streptococcus pneumoniae Antigen (M - Final 07/14/21 16:15 Mucosa - Nasopharyngeal Rapid RSV (DFA) - Final 07/14/21 16:15 Mucosa - Nasopharyngeal Influenza Types A,B Direct FA (MORIAH) - Final 07/14/21 10:15 Nasal Secretion SARS-CoV-2 Antigen (Rapid) - Final Physical Exam Const alert and no apparent distress Resp normal respiratory effort, no retractions, no use of accessory muscles and clear to auscultation bilaterally Cardio regular rate, regular rhythm, S1 normal heart sound and S2 normal heart sound GI normal to inspection, nondistended, normoactive bowel sounds, soft to palpation, non-tender and non-distended Extremity normal to inspection and full ROM Assessment & Plan Assessment/Plan (1) Exudative pleural effusion: (2) Splenic infarction: (3) Renal infarction: (4) Chronic atrial fibrillation with RVR: PLAN: 1. Exudative pleural effusion unclear etiology may be due to RA prior cytology has been negative, though cannot definitively rule out malignancy follow up with pulmonology as outpt 2. Afib with RVR refractory despite PO dilt and metoprolol Echo on the shows an EF of 60-65% on enoxapainr and warfarin DC diltiazem drip Resume 240 mg of diltiazem CD. Increase the metoprolol tartrate to 100 twice daily. 3. Debility no SNF plan for home with home care 4. VTE prophylaxis: not indicated as already anticoagulated Given that patient lives by herself and is still having periods of tachycardia, though improved, I feel is best to monitor the patient overnight to ensure that she continues to be stable prior to being discharged. If heart rate can be controlled, the plan is for the patient be discharged home with home care on the . Charges/Coding Visit Charges Inpatient E&M: 23066 Subs Hosp L2
[2021-07-21] VITALS (16 sets, daily range): BP systolic 96–114; BP diastolic 65–79; PULSE 86–130; RESP 16–20; TEMP 36.1–36.4; O2SAT 93–97
[2021-07-21] MEDS: Enoxaparin 60 MG/0.6 ML Syringe 50 MG SC ×2 (04:49→17:45)
[2021-07-21 06:31] LABS: International Normalized Ratio 1.2; Prothrombin Time (Protime)PT. 14.4 SECONDS (11.7-14.9)
[2021-07-21] MEDS: Pantoprazole Sodium 40 MG Tablet PO (08:43)
[2021-07-21] MEDS: Furosemide 40 MG Tablet PO ×2 (08:43→17:45)
[2021-07-21] MEDS: Metoprolol Tartrate 100 MG Tablet PO ×2 (08:43→20:58)
[2021-07-21] MEDS: Multivitamins,Therapeutic Tablet 1 TABLET PO (08:44)
[2021-07-21] MEDS: dilTIAZem CD 240 MG Capsule PO ×2 (08:44→21:03)
[2021-07-21] MEDS: Potassium Chloride Oral Tablet 20 MEQ PO ×2 (08:44→17:45)
[2021-07-21] MEDS: Amiodarone 200 MG Tablet PO ×2 (10:52→22:48)
--- NOTE | 2021-07-21 14:16 | PCM.PN.HOSP ---
Subjective Subjective Breathing well. Denies any palpitations. Still with periods of A. fib with RVR but the heart rates only come to the 120s. Objective Data Objective Data Vital Signs: Vital Signs Temp Pulse Resp BP Pulse Ox 36.1 C L 110 H 20 H 114/79 97 07/21/21 08:31 07/21/21 14:13 07/21/21 08:31 07/21/21 08:31 07/21/21 12:57 Oxygen Flow Rate (L/min) [5] 2 Oxygen Flow Rate (L/min) [4] 2 Oxygen Flow Rate (L/min) [3] 2 Oxygen Flow Rate (L/min) [2] 2 Oxygen Flow Rate (L/min) [1 ( 2 Initial Baseline)] Oxygen Flow Rate (L/min) 2 Oxygen Delivery Method [5] Nasal Cannula Oxygen Delivery Method [4] Nasal Cannula Oxygen Delivery Method [3] Nasal Cannula Oxygen Delivery Method [2] Nasal Cannula Oxygen Delivery Method [1 ( Nasal Cannula Initial Baseline)] Oxygen Delivery Method Room Air Weight: 58.7 kg Body Mass Index (BMI) 26.4 Intake & Output: Intake and Output for Last 24 Hours 07/19/21 07/20/21 07/21/21 23:59 23:59 23:59 Intake Total 720.92 / 725.92 532.5 / 532.5 480 / 480 Output Total 300 / 300 Balance 720.92 / 725.92 532.5 / 532.5 180 / 180 Lab / Micro Data Result Diagrams: 07/20/21 05:50 07/20/21 05:50 Labs: Laboratory Results - last 24 hr 07/15/21 13:50: Cycl Citrul Peptide IgG 25 H 07/21/21 05:17: PT 14.4, INR 1.2 Micro: Microbiology 07/16/21 13:40 Fluid - Thoracentesis Fluid Gram Stain - Final 07/16/21 13:40 Fluid - Thoracentesis Fluid Body Fluid Culture - Final No growth aerobically. 07/16/21 13:40 Fluid - Thoracentesis Fluid Anaerobic Culture - Final No anaerobic bacteria isolated. 07/14/21 14:00 Blood Culture (Wb) - Anticubital Left Blood Culture - Final No growth in 5 days. 07/14/21 14:10 Blood Culture (Wb) - Left Hand Blood Culture - Final No growth in 5 days. 07/14/21 13:50 Urine, Clean Catch Legionella Antigen - Final 07/14/21 13:50 Urine, Clean Catch Streptococcus pneumoniae Antigen (M - Final 07/14/21 16:15 Mucosa - Nasopharyngeal Rapid RSV (DFA) - Final 07/14/21 16:15 Mucosa - Nasopharyngeal Influenza Types A,B Direct FA (MORIAH) - Final 07/14/21 10:15 Nasal Secretion SARS-CoV-2 Antigen (Rapid) - Final Physical Exam Const alert and no apparent distress Resp normal respiratory effort, no retractions, no use of accessory muscles and clear to auscultation bilaterally Cardio regular rate, regular rhythm, S1 normal heart sound and S2 normal heart sound GI normal to inspection, nondistended, normoactive bowel sounds, soft to palpation and non-tender Extremity normal to inspection and full ROM Assessment & Plan Assessment/Plan (1) Exudative pleural effusion: (2) Splenic infarction: (3) Renal infarction: (4) Chronic atrial fibrillation with RVR: PLAN: 1. Exudative pleural effusion unclear etiology may be due to RA prior cytology has been negative, though cannot definitively rule out malignancy Cytology this time was also negative for malignant cells. follow up with pulmonology as outpt 2. Afib with RVR refractory despite PO dilt and metoprolol Echo on the shows an EF of 60-65% on enoxapainr and warfarin DC diltiazem drip 07/20: Resume 240 mg of diltiazem CD. Increase the metoprolol tartrate to 100 twice daily.. 07/21: Ongoing but overall improved. We will add amiodarone 20 mg twice daily and observe. 3. Debility no SNF plan for home with home care 4. VTE prophylaxis: not indicated as already anticoagulated Given that patient lives by herself and is still having periods of tachycardia, though improved, I feel is best to monitor the patient overnight to ensure that she continues to be stable prior to being discharged. If heart rate can be controlled, the plan is for the patient be discharged home with home care on the . Charges/Coding Visit Charges Inpatient E&M: 03747 Subs Hosp L2
--- NOTE | 2021-07-21 16:25 | CASEMGMT ---
Pt still tachycardic this am and per Dr. Lorenzo will not d/c today. Rosa Maria at [facility] aware. Nerissa TODD CM
[2021-07-22] VITALS (9 sets, daily range): BP systolic 101–110; BP diastolic 64–69; PULSE 84–109; RESP 14–16; TEMP 36.6; O2SAT 93–98
[2021-07-22] MEDS: Enoxaparin 60 MG/0.6 ML Syringe 50 MG SC (05:39)
[2021-07-22] MEDS: Potassium Chloride Oral Tablet 20 MEQ PO (09:22)
[2021-07-22] MEDS: Furosemide 40 MG Tablet PO (09:22)
[2021-07-22] MEDS: Multivitamins,Therapeutic Tablet 1 TABLET PO (09:22)
[2021-07-22] MEDS: Metoprolol Tartrate 100 MG Tablet PO (09:22)
[2021-07-22] MEDS: Amiodarone 200 MG Tablet PO (09:23)
[2021-07-22] MEDS: Pantoprazole Sodium 40 MG Tablet PO (09:23)
--- NOTE | 2021-07-22 11:05 | DCINST_ITS ---
Discharge Instructions Diet Discharge Diet: Low fat / Low cholesterol Dressing / Incision Call your doctor if you observe: Fever of 101 or Higher, Shortness of breath, Chest pain and Increased palpitations (irregular heartbeat) Follow Up Care Test Results: Test results from this visit will be discussed in further detail at your follow-up appointment, if applicable. Discharge Plan Admission Admit Date/Time: 07/14/21 15:29 Primary Reason for Your Visit: pleural effusion. atrial fibrillation with RVR Attending Provider: Oj Lorenzo Primary Care Provider: Wes Magallon Consulting Providers: Flaquito Mariee ; Dwayne Garcia ; Amy Cummings NP ; Malika Jain Instructions Patient Instructions: Thoracentesis Dc Discharge Orders/Prescriptions Prescriptions: New metoprolol tartrate 100 mg Tablet 100 mg PO BID Qty: 60 RF: 0 amiodarone 200 mg Tablet 200 mg PO BID Qty: 60 RF: 0 enoxaparin 60 mg/0.6 mL Syringe 50 mg subcut Q12@0600,1800 Qty: 6 RF: 0 Continued multivitamin Tablet 1 tab PO DAILY RF: 0 calcium carbonate 600 mg calcium (1,500 mg) tablet 600 mg PO DAILY RF: 0 furosemide 40 mg tablet 40 mg PO BID RF: 0 (DME) Handicap placard Qty: 1 RF: 0 albuterol sulfate 90 mcg/actuation HFA aerosol inhaler 2 puff INHALATION Q4H PRN (Reason: SOB) RF: 0 omeprazole 40 MG capsule 40 mg PO DAILY RF: 0 potassium chloride 20 mEq tablet,ER particles/crystals 20 meq PO BID RF: 0 diltiazem HCl 240 mg capsule,extended release 24hr 240 mg PO DAILY RF: 0 Changed warfarin 4 mg tablet 4 mg PO DAILY Qty: 30 RF: 0 Discontinued warfarin 4 mg tablet 2 mg PO SUTUTHSA RF: 0 metoprolol tartrate 50 mg tablet 75 mg PO BID RF: 0 Referrals / Follow Up: Flaquito Mariee MD [STAFF PHYSICIAN] - Within 2 Weeks Wes Magallon MD [Primary Care Provider] - Within 2 Weeks Frida Molina NP, NANOSCIENCE TECHNICIAN-C [Nurse Practitioner] - 08/16/21 3:00 pm (already scheduled) Disposition Disposition (needs filled in before D/C Order can be placed): Home Health Service
--- NOTE | 2021-07-22 11:16 | DS.PCM_ITS ---
Providers Date of Admission: 07/14/21 Primary Care Physician: Dr. Wes Magallon MD Consultations 07/14/21 15:47 Consult: Music Professor / Pulmonary Medicine Routine Consulting Provider: Pulmonary Medicine alexus Nallen Reason for Consult: Recurrent R Pleural Effusion EMERGENT Consult: No Notified: Yes Date Notified: 07/14/21 Time Notified: 15:33 Method of Notification: Text Consult: Urology Routine Consulting Provider: Malika Jain Reason for Consult: Renal cyst-complex and suggestive of malignancy EMERGENT Consult: No Notified: Yes Date Notified: 07/14/21 Time Notified: 16:24 Method of Notification: Verbal Reason For Visit: SPLENIC AND RENAL INFARCTS Diagnosis Discharge Diagnosis (1) Exudative pleural effusion: Status: Acute Code(s): J90 - Pleural effusion, not elsewhere classified (2) Splenic infarction: Status: Acute Code(s): D73.5 - Infarction of spleen (3) Renal infarction: Status: Acute Code(s): N28.0 - Ischemia and infarction of kidney (4) Chronic atrial fibrillation with RVR: Status: Chronic Code(s): I48.20 - Chronic atrial fibrillation, unspecified Medications at Discharge Home Medications omeprazole 40 mg PO DAILY 10/19/14 calcium carbonate 600 mg calcium (1,500 mg) tablet 600 mg PO DAILY 06/19/19 multivitamin 1 tab PO DAILY 06/19/19 furosemide 40 mg tablet 40 mg PO BID tab 11/22/19 Handicap placard #1 ea 01/07/20 albuterol sulfate 90 mcg/actuation aerosol inhaler 2 puff INHALATION Q4H PRN g 01/09/20 diltiazem HCl 240 mg PO DAILY 04/26/21 potassium chloride 20 meq PO BID 04/26/21 amiodarone 200 mg PO BID #60 tab 07/22/21 enoxaparin 50 mg SUBCUT Q12@0600,1800 #6 ml 07/22/21 metoprolol tartrate 100 mg PO BID #60 tab 07/22/21 warfarin 4 mg PO DAILY #30 tab 07/22/21 Hospital Course Operations None Procedures 2-D Echocardiogram and Thoracentesis Summary of Care Provided Minutes Spent on Discharge: 32 Hospital Course: This is a 25-year-old female I was noted to be hypoxic 88% on room air. Patient has CT of her chest showed a moderate right-sided pleural effusion with compressive atelectasis. Additionally scans showed a left renal infarct as well as a splenic infarct. Patient's INR was subtherapeutic upon arrival. Roland to be embolic related with her atrial fibrillation with subt herapeutic INR. Patient underwent a thoracentesis on the that removed 670 cc of blood-tinged fluid. Based by light's criteria it was positive as exudative. Cytology was negative for malignancy. Concern for this being perhaps due to rheumatoid arthritis. Patient will need follow-up pulmonology. Patient had been established with Dr. Dunn but is preferring to follow-up with . While she was here she did developed A. fib with RVR. Was temporally on a diltiazem drip. Patient's metoprolol was increased from 25-100 twice daily. Amiodarone 200 mg twice daily was added. Our overall, her heart rate is improved. Patient will follow up with cardiology has a scheduled appointment for August 16. Physical Exam Const alert Cardio regular rate, regular rhythm and S1 normal heart sound GI normal to inspection, nondistended, normoactive bowel sounds, soft to palpation and non-tender Extremity normal to inspection Skin no rashes or lesions noted Weight / BMI Weight Weight: 59.1 kg Body Mass Index (BMI) 26.4 ABG / Lab / Microbiology Data Result Diagrams: 07/20/21 05:50 07/20/21 05:50 Microbiology: Microbiology 07/16/21 13:40 Fluid - Thoracentesis Fluid Gram Stain - Final 07/16/21 13:40 Fluid - Thoracentesis Fluid Body Fluid Culture - Final No growth aerobically. 07/16/21 13:40 Fluid - Thoracentesis Fluid Anaerobic Culture - Final No anaerobic bacteria isolated. 07/14/21 14:00 Blood Culture (Wb) - Anticubital Left Blood Culture - Final No growth in 5 days. 07/14/21 14:10 Blood Culture (Wb) - Left Hand Blood Culture - Final No growth in 5 days. 07/14/21 13:50 Urine, Clean Catch Legionella Antigen - Final 07/14/21 13:50 Urine, Clean Catch Streptococcus pneumoniae Antigen (M - Final 07/14/21 16:15 Mucosa - Nasopharyngeal Rapid RSV (DFA) - Final 07/14/21 16:15 Mucosa - Nasopharyngeal Influenza Types A,B Direct FA (MORIAH) - Final 07/14/21 10:15 Nasal Secretion SARS-CoV-2 Antigen (Rapid) - Final D/C Instructions Discharge Diet: Low fat / Low cholesterol Call your doctor if you observe: Fever of 101 or Higher, Shortness of breath, Chest pain and Increased palpitations (irregular heartbeat) Meaningful Use Info Meaningful Use Diagnoses (Choose all that apply): None applicable Discharge Plan Admission Admit Date/Time: 07/14/21 15:29 Primary Reason for Your Visit: pleural effusion. atrial fibrillation with RVR Attending Provider: Oj Lorenzo Primary Care Provider: Wes Magallon Consulting Providers: Flaquito Mariee ; Dwayne Garcia ; Amy Cummings FRUIT PICKER MACHINE OPERATOR ; Malika Davila Instructions Patient Instructions: Thoracentesis Dc Discharge Orders/Prescriptions Prescriptions: New metoprolol tartrate 100 mg Tablet 100 mg PO BID Qty: 60 RF: 0 amiodarone 200 mg Tablet 200 mg PO BID Qty: 60 RF: 0 enoxaparin 60 mg/0.6 mL Syringe 50 mg subcut Q12@0600,1800 Qty: 6 RF: 0 Continued multivitamin Tablet 1 tab PO DAILY RF: 0 calcium carbonate 600 mg calcium (1,500 mg) tablet 600 mg PO DAILY RF: 0 furosemide 40 mg tablet 40 mg PO BID RF: 0 (DME) Handicap placard Qty: 1 RF: 0 albuterol sulfate 90 mcg/actuation HFA aerosol inhaler 2 puff INHALATION Q4H PRN (Reason: SOB) RF: 0 omeprazole 40 MG capsule 40 mg PO DAILY RF: 0 potassium chloride 20 mEq tablet,ER particles/crystals 20 meq PO BID RF: 0 diltiazem HCl 240 mg capsule,extended release 24hr 240 mg PO DAILY RF: 0 Changed warfarin 4 mg tablet 4 mg PO DAILY Qty: 30 RF: 0 Discontinued warfarin 4 mg tablet 2 mg PO SUTUTHSA RF: 0 metoprolol tartrate 50 mg tablet 75 mg PO BID RF: 0 Referrals / Follow Up: Flaquito Mariee MD [STAFF PHYSICIAN] - Within 2 Weeks Wes Magallon MD [Primary Care Provider] - Within 2 Weeks Frida Molina NP, FRUIT PICKER MACHINE OPERATOR-C [Nurse Practitioner] - 08/16/21 3:00 pm (already scheduled) Disposition Disposition (needs filled in before D/C Order can be placed): Home Health Service Charges/Coding Visit Charges Inpatient E&M: 91105 Disch Hosp
--- NOTE | 2021-07-22 11:51 | CASEMGMT ---
Call to [facility] to notify of pt discharge today and per Rosa Maria, they will do SOC tomorrow. Pt updated on all, voices understanding and voices no further questions/concerns/needs. This PEYTON TONY asked pt if she would like to call one of her daughters or her son-in-law to update and she states she will call them once home. Pt voices no further concerns with discharge. [place] PEYTON TONY
[2021-07-23 15:09] LABS: Glucose, Body Fluid 130 mg/dL (40-70)
== END 2021-07-22 15:41 | disposition home health service (06) | DRG 545 ==
LOC: ED 14:00 → PCU 14:44
PROVIDERS: Family Medicine; Internal Medicine Critical Care Medicine; Student in an Organized Health Care Education/Training Program; Admitting Provider Internal Medicine; Emergency Provider Emergency Medicine; PCP Family Medicine
DX: M06.9 Rheumatoid arthritis, unspecified (principal); J96.01 Acute respiratory failure with hypoxia; N28.0 Ischemia and infarction of kidney; I50.32 Chronic diastolic (congestive) heart failure; E87.1 Hypo-osmolality and hyponatremia; J91.8 Pleural effusion in other conditions classified elsewhere; Q87.40 Marfan syndrome, unspecified; I27.20 Pulmonary hypertension, unspecified; I11.0 Hypertensive heart disease with heart failure; J44.9 Chronic obstructive pulmonary disease, unspecified; I48.0 Paroxysmal atrial fibrillation; D73.5 Infarction of spleen; K21.9 Gastro-esophageal reflux disease without esophagitis; E78.5 Hyperlipidemia, unspecified; E87.8 Other disorders of electrolyte and fluid balance, not elsewhere classified; N28.1 Cyst of kidney, acquired; Z79.01 Long term (current) use of anticoagulants; Z87.01 Personal history of pneumonia (recurrent); Z79.899 Other long term (current) 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; R79.1 Abnormal coagulation profile; R53.81 Other malaise
CPT/HCPCS: 32555; 36415; 71046; 71275; 74177; 74183; 80048; 80053; 80202; 81001; 82945; 83605; 83615; 83690; 83735; 83880; 84100; 84156; 84157; 84443; 84484; 85025; 85610; 85730; 86038; 86200; 86225; 86235; 86431; 87040; 87070; 87075; 87205; 87426; 87449; 87635; 87804; 87807; 88108; 88305; 88313; 88341; 88342; 89050; 93005; 93306; 97110; 97116; 97162; 97166; 97530; 97535; 97802; 99251; 99285; A9575; J7030; J7040; J7050; Q9967; A4216; G0463; J1940; J2405; U0003; U0005

== ENCOUNTER 2021-07-28 13:52 | Outpatient (CLI) | payer MEDICARE, SELFPAY ==
[2021-07-28 14:10] LABS: International Normalized Ratio 1.2; Prothrombin Time (Protime)PT. 14.1 SECONDS (11.7-14.9)
== END 2021-07-28 23:59 | disposition home or self-care (01) ==
LOC: LABSPEC 13:54
PROVIDERS: PCP Family Medicine; Visit Provider Family Medicine
DX: I48.20 Chronic atrial fibrillation, unspecified (principal)
CPT/HCPCS: 85610

== ENCOUNTER 2021-08-04 14:56 | Outpatient (CLI) | payer MEDICARE, SELFPAY ==
[2021-08-04 15:27] LABS: International Normalized Ratio 1.9; Prothrombin Time (Protime)PT. 21.3 SECONDS (11.7-14.9)
== END 2021-08-04 23:59 | disposition home or self-care (01) ==
LOC: LABSPEC 14:58
PROVIDERS: PCP Family Medicine; Visit Provider Family Medicine
DX: I48.0 Paroxysmal atrial fibrillation (principal)
CPT/HCPCS: 85610

== ENCOUNTER 2021-08-05 11:44 | Outpatient (RCR) | payer MEDICARE, SELFPAY ==
[2021-08-05 12:37] LABS: Anion Gap 3 (5-15); BUN 13 mg/dL (7-18); BUN/Creat Ratio 13.5 RATIO (10-20); CRP 3.21 mg/L (0.0-3.0); Calcium,Total 8.8 mg/dL (8.5-10.1); Chloride 99 mmol/L (98-107); Creatinine, Serum 0.96 mg/dL (0.55-1.02); EST Glomerular Filtration Rate 60 mL/min (>60); Est Glom Filt Rate - Afr Amer 72 mL/min (>60); Glucose 101 mg/dL (74-106); Potassium 4.1 mmol/L (3.5-5.1); Rheumatoid Factor < 10.0 IU/mL (<15); Sodium Level 133 mmol/L (136-145)
[2021-08-05 12:45] LABS: Hematocrit 38.6 % (37-47); Hemoglobin 12.7 g/dL (12.0-15.0); Mean Corp Hgb Conc 32.9 g/dL (32-36); Mean Corpuscular Volume 88.1 fL (81-99); Mean Platelet Vol. 9.3 fl (6.2-12.0); Platelet Count 458 K/mm3 (150-450); RBC Distribution Width CV 16.1 % (11.6-14.6); RBC Distribution Width SD 51.9 fl (35.1-43.9); Red Blood Count 4.38 M/mm3 (4.2-5.4); White Blood Count 7.6 K/mm3 (4.4-11.0)
[2021-08-06 15:14] LABS: ANTINUCLEAR ANTIBODIES DIRECT Negative (Negative)
== END 2021-09-02 23:59 | disposition home or self-care (01) ==
LOC: HHLAB 11:44
PROVIDERS: PCP Family Medicine; Referring Provider Family Medicine; Visit Provider Family Medicine
DX: I48.20 Chronic atrial fibrillation, unspecified (principal); I50.813 Acute on chronic right heart failure; J90 Pleural effusion, not elsewhere classified
CPT/HCPCS: 80048; 85027; 86038; 86140; 86431

== ENCOUNTER 2021-08-25 15:20 | Outpatient (CLI) | payer MEDICARE, SELFPAY ==
[2021-08-25 15:40] LABS: International Normalized Ratio 2.9; Prothrombin Time (Protime)PT. 29.4 SECONDS (11.7-14.9)
== END 2021-08-25 23:59 | disposition home or self-care (01) ==
LOC: LABSPEC 15:22
PROVIDERS: PCP Family Medicine; Visit Provider Family Medicine
DX: I48.0 Paroxysmal atrial fibrillation (principal)
CPT/HCPCS: 85610

== ENCOUNTER 2021-09-09 13:54 | Outpatient (CLI) | payer MEDICARE, SELFPAY ==
[2021-09-09 15:16] LABS: Hematocrit 39.2 % (37-47); Hemoglobin 12.3 g/dL (12.0-15.0); Mean Corp Hgb Conc 31.4 g/dL (32-36); Mean Corpuscular Hgb 26.3 pg (27.0-32.0); Mean Corpuscular Volume 83.9 fL (81-99); Mean Platelet Vol. 8.6 fl (6.2-12.0); Platelet Count 452 K/mm3 (150-450); RBC Distribution Width SD 48.8 fl (35.1-43.9); Red Blood Count 4.67 M/mm3 (4.2-5.4); White Blood Count 10.2 K/mm3 (4.4-11.0)
[2021-09-09 15:44] LABS: BNP,B-Type NATRIURETIC PEPTIDE 665.6 pg/mL (0-100)
[2021-09-09 15:46] LABS: Anion Gap 5 (5-15); BUN 14 mg/dL (7-18); BUN/Creat Ratio 12.3 RATIO (10-20); Calcium,Total 8.6 mg/dL (8.5-10.1); Chloride 101 mmol/L (98-107); Creatinine, Serum 1.14 mg/dL (0.55-1.02); EST Glomerular Filtration Rate 49 mL/min (>60); Est Glom Filt Rate - Afr Amer 60 mL/min (>60); Glucose 118 mg/dL (74-106); Sodium Level 135 mmol/L (136-145)
== END 2021-09-09 23:59 | disposition home or self-care (01) ==
LOC: LAB 13:56
PROVIDERS: PCP Family Medicine; Referring Provider Nurse Practitioner Gerontology; Visit Provider Nurse Practitioner Gerontology
DX: R06.02 Shortness of breath (principal); I50.9 Heart failure, unspecified; I48.0 Paroxysmal atrial fibrillation; Z79.01 Long term (current) use of anticoagulants
CPT/HCPCS: 36415; 80048; 83880; 85027

== ENCOUNTER 2021-09-16 07:32 | Outpatient (CLI) | payer MEDICARE, SELFPAY ==
[2021-09-16] VITALS (13 sets, daily range): BP systolic 109–147; BP diastolic 52–71; PULSE 51–56; RESP 15–24; TEMP 36.7; O2SAT 87–100; BMI 24.5
--- NOTE | 2021-09-16 07:43 | CT_ITS ---
STUDY: CT ABDOMEN WITH CONTRAST REASON FOR EXAM: Female, 75 years old. Neoplasm of uncertain behavior of left kidney. Patient was scheduled for a left renal biopsy. RADIATION DOSAGE (If Supplied By Facility): CTDIvol = ( 12381 ) mGy, DLP = ( 739.04 ) mGycm TECHNIQUE: Transaxial images were obtained post I.V. administration of 100 CC ISOVUE 300, and oral contrast. Sagittal and coronal images were reconstructed. Individualized dose optimization techniques were used for this CT. COMPARISON: Comparison is made with prior study dated 07/14/2021. FINDINGS: Intravenous contrast was administered prior to the biopsy. No left renal mass is seen. The left kidney as a practically normal appearance at this time. The findings on prior examination most likely represent either renal ischemia/infarction and pyelonephritis. Biopsy was not performed. CT/Abdomen WITH IV Contrast IMPRESSION: Findings suggestive of a healing left renal ischemia/infarction and pyelonephritis rather than a true mass. Electronically Signed: Shashi Jacobo MD at 10:09 EDT ,
[2021-09-16 07:45] LABS: Platelet Count 364 K/mm3 (150-450)
[2021-09-16 07:56] LABS: International Normalized Ratio 1.1; Prothrombin Time (Protime)PT. 14.3 SECONDS (11.7-14.9)
[2021-09-16 07:57] LABS: Partial Thromboplast Time 29.1 Seconds (24.1-36.2)
[2021-09-16] MEDS: Midazolam 2 MG/2 ML Syringe IV (09:00)
[2021-09-16] MEDS: fentaNYL 100 MCG/2 ML Ampul IV (09:04)
== END 2021-09-16 23:59 | disposition home or self-care (01) ==
PROVIDERS: PCP Family Medicine; Referring Provider Urology; Visit Provider Urology
DX: D41.02 Neoplasm of uncertain behavior of left kidney (principal)
CPT/HCPCS: 36415; 74160; 85049; 85610; 85730; 99156; J7040; Q9967; A4216

== ENCOUNTER → 2021-10-22 | Outpatient (CLI) | payer MEDICARE, SELFPAY ==
--- NOTE | 2021-10-22 11:20 | PFT_ITS ---
INTRODUCTION: The patient is a INTERPRETATION: IMPRESSION:
--- NOTE | 2021-10-22 11:20 | PFT ---
INTRODUCTION: The patient is a INTERPRETATION: IMPRESSION:
--- NOTE | 2021-10-23 07:21 | PFT ---
INTRODUCTION: The patient is a 76-year-old female that presents for pulmonary function studies secondary to a diagnosis of dyspnea. Respiratory therapy reported good patient effort. Bronchodilators were used during testing. INTERPRETATION: Forced expiration spirometry demonstrates the presence of a moderately severe large airways obstructive ventilatory defect. There is no significant response to aerosolized bronchodilators. Spirograms are of fair quality and plateau gradually. Body plethysmography was performed and reveals a decreased TLC to 3.32 L, 80% of predicted, indicative of a mild restrictive ventilatory impairment. Diffusing capacity by single breath CO is severely reduced at 39% of predicted. When compared to prior pulmonary function studies from March 2020, there has been a 39% reduction in DLCO. IMPRESSION: Irreversible moderately severe mixed ventilatory defect with disproportionate reduction in diffusing capacity.
== END | disposition home or self-care (01) ==
LOC: PSN 09:08
PROVIDERS: PCP Family Medicine; Referring Provider Nurse Practitioner Acute Care; Visit Provider Nurse Practitioner Acute Care
DX: R06.00 Dyspnea, unspecified (principal)
CPT/HCPCS: 94060; 94726; 94729

== ENCOUNTER → 2021-10-26 | Outpatient (CLI) | payer MEDICARE, SELFPAY ==
[2021-10-26 11:22] VITALS: PULSE 56; PULSE 59; PULSE 68; PULSE 71; PULSE 72; PULSE 73; PULSE 78; PULSE 83; O2SAT 92; O2SAT 93; O2SAT 94; O2SAT 96
--- NOTE | 2021-10-26 12:32 | PCM.PSN.6M ---
PSN 6 Minute Walk Test 6 Minute Walk Test 6 Minute Walk Test: 6 Minute Walk Test PSN:6-Minute Walk Test Start: 10/26/21 11:21 Freq: Status: Active Protocol: [id number] Document 10/26/21 11:22 JACK (Rec: 10/26/21 11:23 JACK [id number]) 6 Minute Walk Test Date Performed 10/26/21 Time Performed 11:00 Height 5 ft 1 in Weight: 58.967 kg Weight in Pounds 130.[address]: Amy Cummings EXTRUSION DIE REPAIRER Assistive device used: None Pre-test Oxygen Delivery Method Room Air Pulse Ox (%) 94 Pulse Rate (60-100 beats/min) 56 L Dyspnea Peggy Scale (0-10) 0.5 Exertion Peggy Scale (6-20) 6 1st minute Oxygen Delivery Method Room Air Pulse Ox (%) 96 Pulse Rate (60-100 beats/min) 71 2nd minute Oxygen Delivery Method Room Air Pulse Ox (%) 94 Pulse Rate (60-100 beats/min) 68 3rd minute Oxygen Delivery Method Room Air Pulse Ox (%) 93 Pulse Rate (60-100 beats/min) 73 4th minute Oxygen Delivery Method Room Air Pulse Ox (%) 92 Pulse Rate (60-100 beats/min) 72 5th minute Oxygen Delivery Method Room Air Pulse Ox (%) 92 Pulse Rate (60-100 beats/min) 78 6th minute Oxygen Delivery Method Room Air Pulse Ox (%) 92 Pulse Rate (60-100 beats/min) 83 Dyspnea Peggy Scale (0-10) 2 Exertion Peggy Scale (6-20) 14 Post-test Oxygen Delivery Method Room Air Pulse Ox (%) 93 Pulse Rate (60-100 beats/min) 59 L Full Laps Walked 12 Partial Lap, Number of Tiles Walked 20 Total Distance Walked (ft) 728 Interpretation Interpretation: The patient was able to ambulate 720 feet over the course of 6 minutes on room air with no assistive devices or breaks. The patient did experience significant desaturation from a high of 96% to as low as 92%. No significant tachycardia was noted. These findings are consistent with a respiratory limitation exercise tolerance. Recommendations Recommendations: No supplemental oxygen is indicated at this time.
== END | disposition home or self-care (01) ==
LOC: PSN 11:02
PROVIDERS: PCP Family Medicine; Visit Provider Nurse Practitioner Acute Care
DX: R06.00 Dyspnea, unspecified (principal)
CPT/HCPCS: 94618

== ENCOUNTER → 2021-11-08 | Outpatient (CLI) | payer MEDICARE, SELFPAY ==
[2021-11-08 17:01] LABS: AST(SGOT) 22 U/L (15-37); Alanine Aminotransfer ALT/SGPT 21 U/L (13-56); Albumin, Serum 3.5 g/dL (3.2-5.0); Alkaline Phosphatase 105 U/L (45-117); Bilirubin, Direct 0.14 mg/dL (0.00-0.30); Globulin 4.5 g/dL (2.2-4.2)
== END | disposition home or self-care (01) ==
LOC: LAB 15:33
PROVIDERS: PCP Family Medicine; Referring Provider Nurse Practitioner Gerontology; Visit Provider Nurse Practitioner Gerontology
DX: R74.8 Abnormal levels of other serum enzymes (principal)
CPT/HCPCS: 36415; 80076

== ENCOUNTER 2022-01-26 05:17 | Inpatient (IN) | payer MEDICARE, SELFPAY ==
[2022-01-26] VITALS (17 sets, daily range): BP systolic 106–142; BP diastolic 52–94; PULSE 63–82; RESP 18–34; TEMP 36.4–37.3; O2SAT 87–99; BMI 25.9; BMI 25.0
--- NOTE | 2022-01-26 | FLU_PTH ---
PATIENT: NIMISHA CEJA LOC: MS3 U#:[id number] AGE/SX: 76/F ROOM: [facility] [place]26/[address]: Dr. Gurjit Reese MD : 1945 BED: 1 DIS: 01/31/2022 SPEC #: [id number] RECD: 01/26/22 12:13 STATUS: PATO BRO #: [id number] FELICIA: 01/26/22 00:[address]: Elisabeth Nascimento DEPT: CYTOLOGY RECD BY: Francisco Casillas ENTERED: 01/26/22 12:13 SP TYPE: Fluid OTHR DR: Dr. Wes Magallon MD Tissues: THORACIC FLUID Procedures: Special Stain Group II Surgery Specimen Level IV Cytospin Fluid HEADER OPERATION: Ultrasound-guided thoracentesis, right PRE-OP DIAGNOSIS: Right effusion TISSUE SUBMITTED: Thoracentesis fluid for cytology DIAGNOSIS CYTOLOGY Thoracentesis fluid for cytology (cytospin): Negative for malignant cells. Marked acute inflammation. See comment. JOSE A:rosana 01/27/2022 COMMENT Clinical correlation and appropriate follow up are necessary. CYTOLOGY STUDY Slides are reviewed. CYTOLOGY GROSS Received is 80 ml of reddish cloudy fluid labeled with the patient's name and and designated per the requisition as thoracentesis. Submitted for cytology preparation including cell block. / rosana 01/26/2022 TC:2 CPT: 14596, 10263
--- NOTE | 2022-01-26 05:32 | ED.VIS.DYS ---
HPI History of Present Illness Chief Complaint: Shortness of Breath Informant: patient Onset/Context/Timing Onset: Yesterday Context: gradual Timing: Continuous Quality: Positive for - (Stabbing) Worsened by: - (Deep breathing) Relieved by: Nothing Associated Symptoms subjective and chills; Negative for cough, rhinorrhea, post nasal drip, ear pain, fever, sore throat or sweats Chest Pain: Positive for Sharp and Stabbing Narrative Narrative: Patient presents with shortness of breath and right-sided chest pain that began last night and has been getting progressively worse. Patient states it is gradually getting worse. Patient admits to some stabbing pain on the right side of her chest. Patient states it is worse with deep breathing. Patient states nothing makes it better. Patient admits to some subjective chills but denies any fevers. Patient denies any cough. Patient denies any sore throat or rhinorrhea. [facility] Medical History Atrial fibrillation Chronic anticoagulation Chronic atrial fibrillation with RVR Congestive heart failure (CHF) COPD (chronic obstructive pulmonary disease) COPD (chronic obstructive pulmonary disease) Embolic infarction Exudative pleural effusion GERD (gastroesophageal reflux disease) Goiter Hepatic congestion HLD (hyperlipidemia) HTN (hypertension) Hypertension Hypokalemia Hyponatremia Leukocytosis Marfans syndrome Non-smoker PAF (paroxysmal atrial fibrillation) Paroxysmal atrial fibrillation with RVR Pleural effusion PNA (pneumonia) Pulmonary hypertension Recurrent pleural effusion Renal cyst Renal infarction Rheumatoid arthritis Rheumatoid arthritis Splenic infarction Substance abuse Subtherapeutic international normalized ratio (INR) Home Medications omeprazole 40 mg capsule,delayed release 40 mg PO DAILY GERD 10/19/14 [History Last Taken 07/13/21] calcium carbonate 600 mg calcium (1,500 mg) tablet 600 mg PO DAILY SUPPLEMENT 06/19/19 [History Last Taken 07/12/21] multivitamin 1 tab PO DAILY SUPPLEMENT 06/19/19 [History Last Taken 07/12/21] Handicap placard #1 ea 01/07/20 [Rx Last Taken Unknown] albuterol sulfate 90 mcg/actuation aerosol inhaler 2 puff inhalation Q4H PRN SOB 01/09/20 [History Last Taken 1 Week Ago ~06/30/21] potassium chloride 20 mEq tablet,extended release(part/cryst) 20 meq PO BID SUPPLEMENT 04/26/21 [History Last Taken 07/13/21] furosemide 40 mg tablet 40 mg PO BID FLUID #180 tabs 09/16/21 [Rx Last Taken Unknown] diltiazem HCl 240 mg capsule,extended release 24 hr 240 mg PO DAILY HEART #90 caps 11/15/21 [Rx Last Taken Unknown] metoprolol tartrate 100 mg tablet 100 mg PO DAILY 12/01/21 [History Last Taken Unknown] warfarin 4 mg tablet See Rx Instructions PO .COMPLEX AFIB 12/01/21 [History Last Taken Unknown] amiodarone 200 mg tablet 100 mg PO DAILY #45 tabs 12/20/21 [Rx Last Taken Unknown] Allergy/AdvReac Type Severity Reaction Status Date / Time pneumococcal vaccine Allergy Severe Rash Verified 01/26/22 05:20 [From Prevnar 13 (PF)] Latex, Natural Rubber Allergy Rash Verified 01/26/22 05:20 rosuvastatin calcium Allergy myalgias Verified 01/26/22 05:20 [From Crestor] ibuprofen AdvReac Nausea Verified 01/26/22 05:20 Family History Mother Diabetes Colon cancer Marfan syndrome Sister Diabetes Hypertension Brother Marfan syndrome COPD (chronic obstructive pulmonary disease) Brother Marfan syndrome Father Gastric ulcer GERD (gastroesophageal reflux disease) Surgical History History of eye surgery History of hysterectomy Social History household members: spouse and children housing: house Smoking Status: Never smoker alcohol intake: never substance use type: does not use caffeine: Yes Type: coffee Number of servings: 4 ROS ROS ED Constitutional Constitutional ED: Reports chills; Denies fever(s) Eyes Eyes: Denies blurry vision or change in vision ENT ENT ED: Denies rhinorrhea or sore throat Cardiovascular Cardiovascular: Reports chest pain; Denies palpitations Respiratory/Chest Respiratory/Chest: Reports dyspnea; Denies cough Gastrointestinal Gastrointestinal: Denies nausea or vomiting Genitourinary Genitourinary ED: Denies dysuria or hematuria Musculoskeletal Musculoskeletal: Reports back pain; Denies neck pain Integumentary Denies abscess or rash Neurologic Neurologic: Denies headache(s) or weakness Allergic/Immunologic Allergic/Immunologic ED: Denies mouth swelling or urticaria EXAM Physical Exam Const Vital Signs: 01/26/22 05:17 01/26/22 05:21 01/26/22 05:23 Temperature 98 F 98 F Temperature Source Temporal Temporal Pulse Rate 81 79 Respiratory Rate 30 H 31 H 34 H Respiratory Effort Respiratory Depth Respiratory Pattern Blood Pressure 142/61 H 142/61 H Blood Pressure Mean 88 88 Pulse Ox 87 89 94 Oxygen Delivery Method Room Air Room Air Nasal Cannula Oxygen Flow Rate (L/min) 2 01/26/22 05:25 01/26/22 05:45 01/26/22 06:14 Temperature Temperature Source Pulse Rate 79 76 Respiratory Rate 28 H 31 H Respiratory Effort Normal Short of Breath Respiratory Depth Shallow Respiratory Pattern Tachypnea Blood Pressure 126/58 H Blood Pressure Mean 80 Pulse Ox 93 Oxygen Delivery Method Nasal Cannula Nasal Cannula Oxygen Flow Rate (L/min) 2 2 01/26/22 07:00 01/26/22 07:06 Temperature 98 F Temperature Source Temporal Pulse Rate 75 75 Respiratory Rate 27 H 25 H Respiratory Effort Respiratory Depth Respiratory Pattern Blood Pressure 130/59 H 130/59 H Blood Pressure Mean 82 82 Pulse Ox 95 94 Oxygen Delivery Method Nasal Cannula Oxygen Flow Rate (L/min) 2 Positive well nourished and well developed General Appearance ED: well developed and NAD HEENT Reports moist mucous membranes Neck supple and no JVD Resp normal respiratory effort Auscultation: diminished lung sounds bilateral Cardio regular rate and regular rhythm GI normal to inspection, nondistended, normoactive bowel sounds and non-tender Palpation: soft Extremity normal to inspection General Extremety ED: Negative for edema or tenderness General Extremity: Negative for edema Neuro oriented x3, CN's II-XII intact bilaterally and no sensory deficits noted Sensorium / Orientation: alert Motor Exam: strength 5/5 throughout Psych mental status grossly normal Skin no rashes or lesions noted MDM MDM MDM Narrative Medical decision making narrative: Patient was given a DuoNeb inhaler. EKG was obtained. On my interpretation, it showed a normal sinus rhythm with first-degree AV block with a rate of 76. QRS interval and QTc intervals were normal. Superior was normal. There are no acute ST or T wave changes. CBC shows a leukocytosis of 24.2. PT was 19.2 and INR was 1.7. PTT was 36. D-dimer was elevated at 1.53. Comprehensive metabolic profile showed a creatinine of 1.18 and a BUN of 19. High-sensitivity troponin was 10. PA and lateral chest x-ray was obtained. There are 2 views. On my interpretation, there is a right pleural effusion and right lower lobe consolidation. Radiologist also interpreted the x-ray and agrees. Because of the elevated D-dimer, CTA of the chest was obtained. There is no evidence of pulmonary embolism. There is a 4 mm pulmonary nodule in the left lower lobe and a smaller nodule in the right lungs which are unchanged. There is a moderate right pleural effusion with atelectasis in the right lower lobe. This was interpreted by the radiologist and reviewed by myself. Lactate was normal at 1.1. Blood cultures were obtained. Urine culture was obtained. Patient was started on Rocephin and Zithromax. Patient was given a dose of morphine for pain. COVID-19 rapid antigen was obtained and was negative. Influenza A and influenza B swabs were obtained and were negative. Case was discussed with the hospitalist. She will admit the patient to her service. Patient understood and was agreeable with the plan. All questions were answered. Lab Data Attestation: I reviewed the patient's lab results. Labs: Laboratory Results - last 24 hr 01/26/22 01/26/22 01/26/22 05:40 05:40 05:40 WBC 24.2 H RBC 4.73 Hgb 13.1 Hct 40.1 MCV 84.8 MCH 27.7 MCHC 32.7 RDW Std Deviation 46.2 H RDW Coeff of Angelo 15.2 H Plt Count 363 MPV 9.1 Immature Gran % (Auto) 0.800 Neut % (Auto) 87.5 H Lymph % (Auto) 4.0 L [place] % (Auto) 7.5 Eos % (Auto) 0.0 Baso % (Auto) 0.2 Absolute Neuts (auto) 21.2 H Absolute Lymphs (auto) 0.98 Nucleated RBC % 0 [address] Path Review May foll Anisocytosis 1+ PT 19.2 H INR 1.7 APTT 36.0 D-Dimer Quant (PE/DVT) 1.53 H* Sodium 132 L Potassium 3.4 L Chloride 97 L Carbon Dioxide 28.0 Anion Gap 7 BUN 19 H Creatinine 1.18 H Estim Creat Clear Calc 30.61 Est GFR (MDRD) Af Amer 57 L Est GFR (MDRD) Non-Af 47 L BUN/Creatinine Ratio 16.1 Glucose 144 H Lactic Acid Calcium 8.2 L Total Bilirubin 0.80 AST 21 ALT 26 Alkaline Phosphatase 101 Troponin I High Sens 10 Total Protein 8.4 H Albumin 3.5 Globulin 4.9 H Albumin/Globulin Ratio 0.7 L 01/26/22 06:28 WBC RBC Hgb Hct MCV MCH MCHC RDW Std Deviation RDW Coeff of Angelo Plt Count MPV Immature Gran % (Auto) Neut % (Auto) Lymph % (Auto) [place] % (Auto) Eos % (Auto) Baso % (Auto) Absolute Neuts (auto) Absolute Lymphs (auto) Nucleated RBC % Diff Path Review Anisocytosis PT INR APTT D-Dimer Quant (PE/DVT) Sodium Potassium Chloride Carbon Dioxide Anion Gap BUN Creatinine Estim Creat Clear Calc Est GFR (MDRD) Af Amer Est GFR (MDRD) Non-Af BUN/Creatinine Ratio Glucose Lactic Acid 1.1 Calcium Total Bilirubin AST ALT Alkaline Phosphatase Troponin I High Sens Total Protein Albumin Globulin Albumin/Globulin Ratio Radiography Chest X-Ray - ED: 2 View, Read by ED Physician, Read by Radiologist, Right Infiltrate and Right Effusion Diagnostic Testing: Clinical Impression(s) from Imaging Studies Chest X-Ray 01/26/22 05:38 IMPRESSION: Right lower lobe consolidation with moderate right pleural effusion possible pneumonia. Cannot exclude other underlying process or mass. Follow-up imaging recommended to confirm resolution. Electronically Signed: Lisbet James MD at 6:28 EDT Reading Location ID and State: [facility] / [place] Tel , Service support , EKG Initial EKG: Attestation: I personally reviewed and interpreted this EKG as follows: Interpretation: Sinus Rhythm (First-degree AV block with rate of 76) and No Acute Injury Pattern Prior EKG tracings: available for review Prior: Unchanged (11/08/2021) Discharge Plan Dx/Rx/DC Orders Clinical Impression: Pneumonia, Hypoxia, Leukocytosis, Pleural effusion on right Disposition Disposition: Acute Care Hospital [facility]
--- NOTE | 2022-01-26 05:38 | RAD_ITS ---
STUDY: X-RAY CHEST REASON FOR EXAM: Female, 76 years old. Dyspnea TECHNIQUE: PA and lateral COMPARISON: Chest x-ray 07/16/2021. FINDINGS: LUNGS: Consolidation right lower lobe with small to moderate right pleural effusion, increased compared to prior study. No pneumothorax. MEDIASTINUM: Aorta atherosclerotic and tortuous. CARDIAC SILHOUETTE: Mildly enlarged. BONES AND SOFT TISSUES: Degenerative changes dorsal spine and shoulders. RAD/Chest PA and Lateral IMPRESSION: Right lower lobe consolidation with moderate right pleural effusion possible pneumonia. Cannot exclude other underlying process or mass. Follow-up imaging recommended to confirm resolution. Electronically Signed: Lisbet James MD at 6:28 EDT ,
--- NOTE | 2022-01-26 05:38 | EKG12_ITS ---
Test Reason : SOB Blood Pressure : / mmHG Vent. Rate : 076 BPM Atrial Rate : 076 BPM P-R Int : 210 ms QRS Dur : 090 ms QT Int : 426 ms P-R-T Axes : 060 -15 012 degrees QTc Int : 479 ms Sinus rhythm with 1st degree A-V block Otherwise normal ECG Confirmed by AKIN MARKS, DESTINEE ([id number]), film or videotape editor NIRAV VENTURA ([id number]) on 01/27/2022 1:25:41 PM Referred By: Confirmed By:AZAR GERARDO MD
[2022-01-26] MEDS: Ipratropium/Albuterol Sulfate 3 ML AMPUL.NEB INHALATION ×2 (05:45→19:50)
[2022-01-26] MEDS: Morphine 4 MG/ML Syringe IV (05:52)
[2022-01-26 05:55] LABS: Absolute Lymphocyte Count 0.98 X10^3/uL (0.83-4.51); Absolute Neutrophil Count 21.2 X10^3/uL (2.0-7.7); Basophil# 0.06 X10^3/uL; Basophil% 0.2 % (0-1); Hematocrit 40.1 % (37-47); Hemoglobin 13.1 g/dL (12.0-15.0); Lymphocyte # 0.98 X10^3/ul (0.83-4.51); Mean Corp Hgb Conc 32.7 g/dL (32-36); Mean Corpuscular Hgb 27.7 pg (27.0-32.0); Mean Corpuscular Volume 84.8 fL (81-99); Mean Platelet Vol. 9.1 fl (6.2-12.0); Monocyte# 1.81 X10^3/uL; Monocyte% 7.5 % (0-10); NRBC Flagged by Analyzer 0 % (0-5); Neutrophil # 21.18 X10^3/uL (2.7-7.7); Neutrophil % 87.5 % (47-70); POSITIVE DIFFERENTIAL YES; Platelet Count 363 K/mm3 (150-450); RBC Distribution Width CV 15.2 % (11.6-14.6); RBC Distribution Width SD 46.2 fl (35.1-43.9); Red Blood Count 4.73 M/mm3 (4.2-5.4); White Blood Count 24.2 K/mm3 (4.4-11.0)
[2022-01-26 05:57] LABS: Differential Indicated SCAN CRITERIA MET
[2022-01-26 06:11] LABS: ALB/GLOB Ratio 0.7 RATIO (0.9-2.4); AST(SGOT) 21 U/L (15-37); Alanine Aminotransfer ALT/SGPT 26 U/L (13-56); Albumin, Serum 3.5 g/dL (3.2-5.0); Alkaline Phosphatase 101 U/L (45-117); Anion Gap 7 (5-15); BUN 19 mg/dL (7-18); BUN/Creat Ratio 16.1 RATIO (10-20); Calcium,Total 8.2 mg/dL (8.5-10.1); Chloride 97 mmol/L (98-107); Creatinine, Serum 1.18 mg/dL (0.55-1.02); EST Glomerular Filtration Rate 47 mL/min (>60); Est Glom Filt Rate - Afr Amer 57 mL/min (>60); Estimated Creatinine Clearance 30.61 ml/min; Globulin 4.9 g/dL (2.2-4.2); Glucose 144 mg/dL (74-106); Potassium 3.4 mmol/L (3.5-5.1); Protein, Total 8.4 g/dL (6.4-8.2); Sodium Level 132 mmol/L (136-145); Troponin-I HS 10 pg/mL (3.0-54.0)
[2022-01-26 06:17] LABS: International Normalized Ratio 1.7; Prothrombin Time (Protime)PT. 19.2 SECONDS (11.7-14.9)
[2022-01-26 06:22] LABS: D-Dimer Quantitative (DVT/PE) 1.53 FEU/ug/m (0.27-0.49)
--- NOTE | 2022-01-26 06:22 | CT_ITS ---
STUDY: CTA CHEST REASON FOR EXAM: Female, 76 years old. Elevated D-dimer RADIATION DOSAGE (If Supplied By Facility): CTDIvol = ( 8.51 ) mGy, DLP = ( 234.16 ) mGycm TECHNIQUE: The examination was performed with the intravenous administration of IV 100mL [id number]-300. Post-processing of the angiographic images was performed, with multiplanar reformation and 3D reconstruction. Individualized dose optimization techniques were used for this CT. COMPARISON: CT chest 07/14/2021. FINDINGS: LUNGS: Compressive atelectasis of right lower lobe and right middle lobe. Cannot exclude mass in the atelectatic lung. Minimal dependent atelectasis in the left lower lobe. 4 mm nodule in the left lower lobe, not significantly changed. There are a few smaller nodules in the right lung right middle lobe and inferior right upper lobe which are likely unchanged although one of the nodules not clearly seen on the prior possibly was obscured by atelectasis. PLEURA: Moderate right pleural effusion is similar to the prior study. No pneumothorax. PULMONARY VESSELS: No pulmonary emboli identified. The central pulmonary arteries are enlarged. MEDIASTINUM: Unremarkable. HEART: Enlarged. AORTA/GREAT VESSELS: Thoracic aorta is normal caliber. No aneurysm or dissection. UPPER ABDOMEN: No acute findings. BONES/SOFT TISSUES: No acute findings. OTHER: None. CT/CTA Chest W/WO Contrast IMPRESSION: No evidence of pulmonary emboli. Enlarged pulmonary arteries consistent with pulmonary arterial hypertension. Moderate right pleural effusion with compressive atelectasis right lower lobe and partial right middle lobe. Findings are similar to the prior study. Follow-up CT imaging recommended to confirm resolution and rule out mass. 4 mm pulmonary nodule left lower lobe and smaller nodules in the right lung likely not significantly changed. CT imaging follow-up is recommended to confirm stability, according to the Fleischner Society guidelines detailed below. *Fleischner Society Recommendations (Radiology 2017, 284:228-243.) (Follow-up and management of multiple nodules smaller than 8 mm detected incidentally at non-screening CT. Newly detected indeterminate nodule in persons 35 years of age or older.) Low risk patient: Minimal or absent history of smoking and of other known risk factors. < 6 mm: No followup needed 6-8mm: Initial Follow-up CT at 3-6 months, then consider CT at 18-24 months >8mm: CT at 3-6 months, then consider CT at 18-24 months High risk patient: History of smoking or of other known risk factors. < 6 mm: Optional CT at 12 months. 6-8mm: CT at 3-6 months, then CT at 18-24 months. >8mm: CT at 3-6 months, then CT at 18-24 months Electronically Signed: Lisbet James MD at 7:32 EDT ,
[2022-01-26 06:23] LABS: Anisocytosis 1+
[2022-01-26] MEDS: 0.9% Normal Saline 1,000 ML 1000 ML IV (06:58)
[2022-01-26 07:09] LABS: Lactic Acid 1.1 mmol/L (0.4-1.9)
--- NOTE | 2022-01-26 07:40 | NURSING ---
DR DEREK OAKLEY
--- NOTE | 2022-01-26 07:50 | NURSING ---
MED SURG DEREK GARCIA, HYPOXIA
--- NOTE | 2022-01-26 08:08 | HP.PCM.HOS_ITS ---
HPI - General General Date of Admission: 01/26/22 Date of Service: 01/26/22 Chief Complaint: Shortness of breath/right-sided chest pain HPI Narrative NIMISHA CEJA, is a 76 F who presented to the emergency department [facility] on 01/26/2022 with right-sided chest pain that began last evening and associated shortness of breath its been progressively getting worse. The patient reports that she has had about 24 to 48 hours of shortness of breath that has been worsening and that her chest pain started last evening. The pain is stabbing in nature and on the right side. She reports it to be pleuritic in nature and nothing makes it better. She complains of subjective chills but denies any documented fevers. She has had an intermittent cough that was initially productive of some clear sputum but is now nonproductive and improved. She is had no nausea or vomiting, constipation or diarrhea, no tingling numbness or focal weakness. She does complain of some generalized weakness. She is had no recent hospitalizations since July of this past year and had been doing quite well up until the last 24 to 48 hours. Vital signs on presentation the emergency department showed a temperature of 98 degrees, heart rate 81, blood pressure 142/61, respiratory rate was initially 30-34 and oxygen saturation was 87% on room air. CBC shows a leukocytosis of 24 2 with a significant left shift at 87.5% neutrophilia. Coags were obtained and INR was found to be 1.7. She is chronically on Coumadin for atrial fibrillation. Her D-dimer was elevated 1.53 and a CTA was performed and was negative for pulmonary embolism however did show a right lower lobe infiltrate as well as compressive atelectasis and a right pleural effusion. Chemistry panel showed hyponatremia with a sodium of 132, hypokalemia with a potassium of 3.4 her renal function was slightly elevated above baseline with a BUN of 19 and a serum creatinine 1.18. Lactic acid was 1.1. Liver functions are unremarkable. Initial troponin was 10. In the emergency department she was given 1 L IV fluids and started on empiric antibiotics. [facility] Medical History Atrial fibrillation Chronic anticoagulation Chronic atrial fibrillation with RVR Congestive heart failure (CHF) COPD (chronic obstructive pulmonary disease) COPD (chronic obstructive pulmonary disease) Embolic infarction Exudative pleural effusion GERD (gastroesophageal reflux disease) Goiter Hepatic congestion HLD (hyperlipidemia) HTN (hypertension) Hypertension Hypokalemia Hyponatremia Leukocytosis Marfans syndrome Non-smoker PAF (paroxysmal atrial fibrillation) Paroxysmal atrial fibrillation with RVR Pleural effusion PNA (pneumonia) Pulmonary hypertension Recurrent pleural effusion Renal cyst Renal infarction Rheumatoid arthritis Rheumatoid arthritis Splenic infarction Substance abuse Subtherapeutic international normalized ratio (INR) Home Medications omeprazole 40 mg capsule,delayed release 40 mg PO DAILY GERD 10/19/14 [History Last Taken 07/13/21] calcium carbonate 600 mg calcium (1,500 mg) tablet 600 mg PO DAILY SUPPLEMENT 06/19/19 [History Last Taken 07/12/21] multivitamin 1 tab PO DAILY SUPPLEMENT 06/19/19 [History Last Taken 07/12/21] Handicap placard #1 ea 01/07/20 [Rx Last Taken Unknown] albuterol sulfate 90 mcg/actuation aerosol inhaler 2 puff inhalation Q4H PRN SOB 01/09/20 [History Last Taken 1 Week Ago ~06/30/21] potassium chloride 20 mEq tablet,extended release(part/cryst) 20 meq PO BID SUPPLEMENT 04/26/21 [History Last Taken 07/13/21] furosemide 40 mg tablet 40 mg PO BID FLUID #180 tabs 09/16/21 [Rx Last Taken Unknown] diltiazem HCl 240 mg capsule,extended release 24 hr 240 mg PO DAILY HEART #90 caps 11/15/21 [Rx Last Taken Unknown] metoprolol tartrate 100 mg tablet 100 mg PO DAILY 12/01/21 [History Last Taken Unknown] warfarin 4 mg tablet See Rx Instructions PO .COMPLEX AFIB 12/01/21 [History Last Taken Unknown] amiodarone 200 mg tablet 100 mg PO DAILY #45 tabs 12/20/21 [Rx Last Taken Unkn own] Allergy/AdvReac Type Severity Reaction Status Date / Time pneumococcal vaccine Allergy Severe Rash Verified 01/26/22 05:20 [From Prevnar 13 (PF)] Latex, Natural Rubber Allergy Rash Verified 01/26/22 05:20 rosuvastatin calcium Allergy myalgias Verified 01/26/22 05:20 [From Crestor] ibuprofen AdvReac Nausea Verified 01/26/22 05:20 Family History Mother Diabetes Colon cancer Marfan syndrome Sister Diabetes Hypertension Brother Marfan syndrome COPD (chronic obstructive pulmonary disease) Brother Marfan syndrome Father Gastric ulcer GERD (gastroesophageal reflux disease) Surgical History History of eye surgery History of hysterectomy Social History household members: spouse and children housing: house Smoking Status: Never smoker alcohol intake: never substance use type: does not use caffeine: Yes Type: coffee Number of servings: 4 ROS Constitutional Constitutional: Reports chills, fatigue, malaise and weakness; Denies anorexia, change in weight, fever(s), night sweats or other Eyes Eyes: Denies blurry vision, change in eye color, change in vision, discharge from eye(s), double vision, erythema, eye pain, loss of vision or other ENT HEENT: Denies abnormal hearing, dysphagia, ear pain, epistaxis, headache(s), hearing loss, nasal congestion, nasal discharge, post nasal drip, sinus pressure, sore throat or other Cardiovascular Cardiovascular: Reports dyspnea on exertion; Denies chest pain, claudication, edema, lightheadedness, orthopnea, palpitations, paroxysmal nocturnal dyspnea, rapid heart rate, syncope or other Respiratory/Chest Respiratory/Chest: Reports cough, dyspnea, productive cough, shortness of breath at rest and shortness of breath with exertion Gastrointestinal Gastrointestinal: Denies abdominal pain, coffee ground emesis, constipation, diarrhea, dyspepsia, hematemesis, hematochezia, loose stools, melena, nausea, vomiting or other Genitourinary Genitourinary: Denies burning urination, difficulty urinating, dysuria, hematur ia, nocturia, urinary frequency, urinary hesitancy, urinary incontinence, urinary urgency or other Musculoskeletal Musculoskeletal: Reports back pain, joint stiffness and myalgias; Denies arthralgias, joint pain, joint swelling, neck pain or other Neurologic Neurologic: Denies abnormal gait, abnormal speech, confusion, disequilibrium, dizziness, focal weakness, headache(s), numbness, paresthesias, seizure-like activity, seizures, syncope, tingling, tremor(s) or other Psychiatric Psychiatric: Denies anxiety, depression, homicidal ideation, suicidal ideation or other Endocrine Endocrinology: Denies change in body appearance, cold intolerance, excessive sweating, heat intolerance, polydipsia, polyuria or other Hematologic/Lymphatic Hematologic/Lymphatic: Denies anemia, easy bleeding, easy bruising, lymphadenopathy or other Allergic/Immunologic Allergic/Immunologic: Denies rhinitis, hives, eczemia, asthma or other Vital Signs Vital Signs Vital Signs: 01/26/22 05:17 01/26/22 05:21 01/26/22 05:23 Temperature 98 F 98 F Temperature Source Temporal Temporal Pulse Rate 81 79 Respiratory Rate 30 H 31 H 34 H Respiratory Effort Respiratory Depth Respiratory Pattern Blood Pressure 142/61 H 142/61 H Blood Pressure Mean 88 88 Pulse Ox 87 89 94 Oxygen Delivery Method Room Air Room Air Nasal Cannula Oxygen Flow Rate (L/min) 2 01/26/22 05:25 01/26/22 05:45 01/26/22 06:14 Temperature Temperature Source Pulse Rate 79 76 Respiratory Rate 28 H 31 H Respiratory Effort Normal Short of Breath Respiratory Depth Shallow Respiratory Pattern Tachypnea Blood Pressure 126/58 H Blood Pressure Mean 80 Pulse Ox 93 Oxygen Delivery Method Nasal Cannula Nasal Cannula Oxygen Flow Rate (L/min) 2 2 01/26/22 07:00 01/26/22 07:06 Temperature 98 F Temperature Source Temporal Pulse Rate 75 75 Respiratory Rate 27 H 25 H Respiratory Effort Respiratory Depth Respiratory Pattern Blood Pressure 130/59 H 130/59 H Blood Pressure Mean 82 82 Pulse Ox 95 94 Oxygen Delivery Method Nasal Cannula Oxygen Flow Rate (L/min) 2 Weight Weight: 62.3 kg Body Mass Index (BMI) 25.9 Physical Exam Const alert, oriented x3, no apparent distress and average body habitus Constitutional Narrative: Unhealthy appearing older white female lying in bed with multiple covers, friend at bedside, patient appears comfortable at this time but ill General Appearance: cooperative HEENT normocephalic, head/scalp atraumatic and hearing grossly normal bilaterally HEENT Narrative: Mallampati 3, edentulous, mucous membranes are dry Mouth: moist mucous membranes abnormal Eyes PERRL, EOMs intact bilaterally and conjunctivae normal Eyes Narrative: No scleral icterus Neck no lymphadenopathy, supple and no JVD Neck Narrative: Trachea midline, no thyroid enlargement Resp no retractions and no use of accessory muscles Resp Narrative: Diminished at right base with few inspiratory crackles, otherwise clear, mild tachypnea Auscultation: crackles; Negative for rhonchi or wheezes Cardio regular rate, regular rhythm, S1 normal heart sound, S2 normal heart sound, no murmurs, no rub, no gallops, no clicks and no JVD GI normal to inspection, nondistended, normoactive bowel sounds, soft to palpation, non-tender and non-distended Extremity Extremity Narrative: Slight edema right lower extremity, varicosities noted, scratches on right lower extremity with erythema and the cellulitic appearing right distal lower extremity, left lower extremity within normal limits, no cyanosis or clubbing Skin No no rashes or lesions noted, No no wounds, No skin turgor normal, no jaundice, no petechiae and no mottling Skin Narrative: Abnormal skin turgor with tenting, right lower extremity as noted above Neuro oriented x3, CN's II-XII intact bilaterally, moves all extremities and no focal motor deficits Neuro Narrative: Marked generalized weakness Speech: speech normal Psych Psych Narrative: Affect is flat mood seems depressed Results Lab / Micro Data Result Diagrams: 01/26/22 05:40 01/26/22 05:40 Labs: Laboratory Results - last 24 hr 01/26/22 05:40: WBC 24.2 H, RBC 4.73, Hgb 13.1, Hct 40.1, MCV 84.8, MCH 27.7, MCHC 32.7, RDW Std Deviation 46.2 H, RDW Coeff of Angelo 15.2 H, Plt Count 363, MPV 9.1, Immature Gran % (Auto) 0.800, Neut % (Auto) 87.5 H, Lymph % (Auto) 4.0 L, [place] % (Auto) 7.5, Eos % (Auto) 0.0, Baso % (Auto) 0.2, Absolute Neuts (auto) 21.2 H, Absolute Lymphs (auto) 0.98, Nucleated RBC % 0, Diff Path Review October oll, Anisocytosis 1+ 01/26/22 05:40: PT 19.2 H, INR 1.7, APTT 36.0, D-Dimer Quant (PE/DVT) 1.53 H* 01/26/22 05:40: Sodium 132 L, Potassium 3.4 L, Chloride 97 L, Carbon Dioxide 28.0, Anion Gap 7, BUN 19 H, Creatinine 1.18 H, Estim Creat Clear Calc 30.61, Est GFR (MDRD) Af Amer 57 L, Est GFR (MDRD) Non-Af 47 L, BUN/Creatinine Ratio 16.1, Glucose 144 H, Calcium 8.2 L, Total Bilirubin 0.80, AST 21, ALT 26, Alkaline Phosphatase 101, Troponin I High Sens 10, Total Protein 8.4 H, Albumin 3.5, Globulin 4.9 H, Albumin/Globulin Ratio 0.7 L 01/26/22 06:28: Lactic Acid 1.1 Micro: Microbiology 01/26/22 05:45 Nasal Secretion SARS-CoV-2 & FLU Antigen (Rapid) - Final Radiology Impression Chest X-Ray 01/26/22 05:38 IMPRESSION: Right lower lobe consolidation with moderate right pleural effusion possible pneumonia. Cannot exclude other underlying process or mass. Follow-up imaging recommended to confirm resolution. Electronically Signed: Lsibet James MD at 6:28 EDT , Chest CTA 01/26/22 06:22 IMPRESSION: No evidence of pulmonary emboli. Enlarged pulmonary arteries consistent with pulmonary arterial hypertension. Moderate right pleural effusion with compressive atelectasis right lower lobe and partial right middle lobe. Findings are similar to the prior study. Follow-up CT imaging recommended to confirm resolution and rule out mass. 4 mm pulmonary nodule left lower lobe and smaller nodules in the right lung likely not significantly changed. CT imaging follow-up is recommended to confirm stability, according to the Fleischner Society guidelines detailed below. *Fleischner Society Recommendations (Radiology 2017, 284:228-243.) (Follow-up and management of multiple nodules smaller than 8 mm detected incidentally at non-screening CT. Newly detected indeterminate nodule in persons 35 years of age or older.) Low risk patient: Minimal or absent history of smoking and of other known risk factors. < 6 mm: No followup needed 6-8mm: Initial Follow-up CT at 3-6 months, then consider CT at 18-24 months >8mm: CT at 3-6 months, then consider CT at 18-24 months High risk patient: History of smoking or of other known risk factors. < 6 mm: Optional CT at 12 months. 6-8mm: CT at 3-6 months, then CT at 18-24 months. >8mm: CT at 3-6 months, then CT at 18-24 months Electronically Signed: Lisbet James MD at 7:32 EDT , Assessment & Plan Assessment/Plan (1) Pneumonia: (2) Hypoxia: (3) Pleural effusion on right: (4) Leukocytosis: (5) Hypokalemia: (6) Dehydration: PLAN: Plan Acute hypoxia secondary to suspected gram-negative pneumonia -Oxygen saturations 87% on room air upon presentation -Currently requiring 2 L nasal cannula to maintain sats greater than 92% -Wean as able -Aggressive pulmonary toilet -Pep therapy -No recent hospitalization so we will proceed with ceftriaxone and azithromycin at this time -Check respiratory viral panel -Check strep pneumo and Legionella antigens -Sputum culture if stable -Blood cultures obtained on admission -Patient with concurrent pleural effusion--> will send for cultures/cytology and calculate light's criteria -Patient is not O2 dependent at baseline Right-sided pleural effusions -Patient has had history of recurrent right pleural effusions with 2 thoracenteses performed back in July -Fluid volume does not seem as high as it had been previously -Thoracentesis ordered -Current INR 1.7 -Fluid cultures/cytology/lights criteria have been sent -Concern for parapneumonic effusion versus empyema Cellulitis -Patient appears to have right lower extremity cellulitis related to bumping her leg recently -Stable scratches -No current needs for wound care but will monitor -Antibiotics as above--> if no improvement may need to alter antibiotics Dehydration -Serum creatinine is above baseline currently being 1.18 with an elevated BUN as well -Baseline serum creatinine is 0.7-1 -Patient was given 1 L of IV fluids in the emergency department -We will continue to monitor but hold off any further IV fluids at this time Leukocytosis -White count is markedly elevated at 24.2 and there is a significant left shift -Antibiotics as above -Continue to monitor with CBC in a.m. D-dimer elevation -INR is subtherapeutic -CTA is negative for PE Hyponatremia -Baseline serum sodium tends to fluctuate however when she is well it appears to be normal -Suspect hypovolemic hyponatremia -Was given IV fluids emergency department -Repeat BMP in a.m. Hypokalemia -Current potassium is 3.4 -40 mill equivalents p.o. potassium -Repeat in a.m. -Check a.m. mag and Phos Splenic/renal infarct -I suspect this is related to her subtherapeutic INR and atrial fibrillation -Patient has chronically been on Coumadin--> INR is currently subtherapeutic -Was on Xarelto in the past but states that she had adverse reactions to this -Continue current Coumadin dosing in light of initiation of antibiotics -Check daily INR -May need to hold Coumadin thoracentesis can be done on day of admission HFpEF-compensated -Gentle hydration given emergency department -We will hold on any further fluid administration -Hold home Lasix for now -Reevaluate tomorrow for reinitiation Hypertension -Continue metoprolol/diltiazem Hyperlipidemia -Currently on no medical therapy -Follows with outpatient primary care physician PAF -Currently sinus rhythm -Continue home metoprolol and diltiazem -Continue home amiodarone -INR subtherapeutic at 1.7 -Continue home Coumadin -Check daily INR GERD -Continue omeprazole DVT prophylaxis -INR slightly subtherapeutic will start Lovenox until INR is therapeutic at 2.0- 3.0 CODE STATUS -Full code as per discussion upon admission Charges/Coding Visit Charges Inpatient E&M: 06675 Init Hosp L3
--- NOTE | 2022-01-26 08:40 | US_ITS ---
PROCEDURE: ULTRASOUND GUIDED THORACENTESIS. DATE: 01/27/2012.. INDICATION: Female, 76 years old. Right pleural effusion. PHYSICIAN: Shashi Jacobo M.D. PROCEDURE: The risks, benefits, and alternatives to the procedure were explained to the patient. The specific risks of bleeding, infection, and pneumothorax requiring chest tube insertion were discussed and accepted. Written informed consent was obtained. Ultrasonographic evaluation of the lower pleural space was carried out. An adequate pocket was identified. The patient was placed in the sitting, upright position. The overlying skin was prepped and draped in sterile fashion. 1% lidocaine was administered subcutaneously for local anesthesia. Under ultrasound guidance, a 5 Syriac thoracentesis needle/catheter system was advanced into the right posterior lower pleural fluid collection. Approximately 200 mL of blood tinged purulent fluid was drained. The catheter was removed, and a sterile dressing was applied. A specimen was collected and sent to the laboratory for analysis, as requested by the referring clinician. The patient tolerated the procedure well. A chest x-ray was ordered. US/Thoracentesis W US IMPRESSION: Ultrasound-guided right thoracentesis. Electronically Signed: Shashi Jacobo MD at 12:04 EDT ,
[2022-01-26] MEDS: Pantoprazole Sodium 40 MG Tablet PO (10:08)
[2022-01-26] MEDS: Amiodarone 200 MG Tablet 100 MG PO (10:08)
[2022-01-26] MEDS: Potassium Chloride Oral Tablet 20 MEQ 40 MEQ PO (10:08)
[2022-01-26] MEDS: guaiFENesin 1,200 MG Tablet 1200 MG PO ×2 (10:08→21:29)
[2022-01-26] MEDS: dilTIAZem CD 240 MG Capsule PO (10:08)
[2022-01-26] MEDS: Multivitamins,Therapeutic Tablet 1 TABLET PO (10:09)
[2022-01-26] MEDS: Metoprolol Tartrate 100 MG Tablet PO (10:09)
[2022-01-26] MEDS: Lidocaine 2% (10 ml mdv) 10 ML Vial INFILT (10:50)
--- NOTE | 2022-01-26 11:05 | RAD_ITS ---
STUDY: X-RAY CHEST REASON FOR EXAM: Female, 76 years old. POST THORACENTESIS TECHNIQUE: AP inspiration and expiration views COMPARISON: Comparison is made with prior study dated 01/26/2022 at 5:50 AM. FINDINGS: The patient is status post right thoracentesis. There is no evidence of pneumothorax. Since prior study, there has been progressive infiltration at the left lung base with superimposed on mild CHF. RAD/Chest Insp/Exp 2 View IMPRESSION: No evidence of pneumothorax following the right thoracentesis. Since prior study, there has been progressive CHF and small left pleural effusion with left basilar infiltrate and/or atelectasis. Electronically Signed: Shashi Jacobo MD at 11:20 EDT ,
[2022-01-26 11:17] LABS: Cytology, Body Fluid / CSF SEE PATHOLOGY REPORT
--- NOTE | 2022-01-26 11:28 | NURSING ---
PT RETURN FROM THORACENTESIS AND DRESSING/OPSITE DRY AND INTACT RIGHT RIGHT CHEST. VS WNL AND RESTING IN BED.
[2022-01-26 11:35] LABS: Body Fluid Mononuclear WBC # 3.407 10^3/uL; Body Fluid Mononuclear WBC % 17.3 %; Body Fluid Polynuclear WBC # 16.235 10^3/uL; Body Fluid Polynuclear WBC % 82.7 %; Red Cell Count/Body Fluid 0.033 10^6/ul
[2022-01-26 11:50] LABS: Appearance/Body Fluid TURBID; Color/Body Fluid RED; Source- Body Fluid THORACENTESIS
[2022-01-26 12:20] LABS: Lymphocytes 16 %; Neutrophil (Segs) 84 %
[2022-01-26 12:23] LABS: Auto B Fluid Analyzer BKGD Ct COUNTS W/IN LIMITS (W/IN LIMITS); Body Fluid QC Type(s) BF2
[2022-01-26 13:10] LABS: Glucose, Body Fluid 39 mg/dL (40-70); LDH,Body Fluid 506 Units/l (Not Establ.); Protein, Body Fluid 4.7 g/dL (Not Establ.)
--- NOTE | 2022-01-26 13:32 | CPS ---
started by nursing
[2022-01-26 14:53] LABS: Bilirubin, Direct 0.25 mg/dL (0.00-0.30); LDH 192 U/L (84-246)
[2022-01-26 15:28] LABS: M R Staph aureus DNA By PCR Negative (Negative); Probe Check PASS; Specimen Processing Control PASS
[2022-01-26] MEDS: Jantoven 2 MG Tablet PO (17:33)
[2022-01-26] MEDS: Acetaminophen 325 MG Tablet 650 MG PO (17:33)
[2022-01-26 20:59] LABS: Bacteria 0 SEEN /hpf (None Seen); Mucous, Urine 0 SEEN /hpf (<or=2+); White Blood Cells 0 SEEN /hpf (0-5)
[2022-01-26 21:04] LABS: Color, Urine Yellow (Yellow); Glucose, Dipstick Normal (Normal); Ketone-Dipstick 5 mg/dl (Negative); Leukocyte Esterase-Dipstick Negative /ul (Negative); Nitrite-Dipstick Negative (Negative); Occult Blood-Urine 10 /ul (Negative); Protein-Dipstick 30 mg/dl (Negative); Specific Gravity, Urine 1.015 (1.002-1.030); Urine Bilirubin Dipstick Negative (Negative); Urine Clarity Clear (Clear); Urine Urobilinogen Normal (Normal)
[2022-01-26 21:21] LABS: Red Blood Cells-Urine 0-5 SEEN /hpf (0-5); Squamous Epithelial Cells - UA 0-5 SEEN /hpf (5-10)
--- NOTE | 2022-01-26 21:56 | PCM.HOSP.N ---
Hospitalist Note Bld Cx x 2 with preliminary GNR. UA not marked. Tx current for PNA, including abx rocephin. From review of prior Cx no evidence of concerning organismal growth. S/P recent thoracentesis which is noted prior also, no organisms on gram stain but cx pending.
[2022-01-27] VITALS (13 sets, daily range): BP systolic 99–140; BP diastolic 46–67; PULSE 63–88; RESP 16–26; TEMP 36.6–36.8; O2SAT 92–97
[2022-01-27] MEDS: Ipratropium/Albuterol Sulfate 3 ML AMPUL.NEB INHALATION ×4 (01:35→19:58)
[2022-01-27 04:41] LABS: Absolute Lymphocyte Count 1.46 X10^3/uL (0.83-4.51); Absolute Neutrophil Count 21.4 X10^3/uL (2.0-7.7); Basophil# 0.04 X10^3/uL; Basophil% 0.2 % (0-1); Eosinophil# 0.01 X10^3/uL; Hematocrit 35.6 % (37-47); Hemoglobin 11.5 g/dL (12.0-15.0); Lymphocyte # 1.46 X10^3/ul (0.83-4.51); Lymphocyte % 5.6 % (19-41); Mean Corp Hgb Conc 32.3 g/dL (32-36); Mean Corpuscular Hgb 27.6 pg (27.0-32.0); Mean Corpuscular Volume 85.4 fL (81-99); Mean Platelet Vol. 9.1 fl (6.2-12.0); Monocyte# 2.93 X10^3/uL; Monocyte% 11.2 % (0-10); NRBC Flagged by Analyzer 0 % (0-5); Neutrophil # 21.38 X10^3/uL (2.7-7.7); Neutrophil % 81.9 % (47-70); POSITIVE DIFFERENTIAL YES; Platelet Count 255 K/mm3 (150-450); RBC Distribution Width CV 15.4 % (11.6-14.6); RBC Distribution Width SD 48.6 fl (35.1-43.9); Red Blood Count 4.17 M/mm3 (4.2-5.4); White Blood Count 26.1 K/mm3 (4.4-11.0)
[2022-01-27 04:43] LABS: Differential Indicated SCAN CRITERIA MET
[2022-01-27 04:56] LABS: BNP,B-Type NATRIURETIC PEPTIDE 599.1 pg/mL (0-100)
[2022-01-27 05:01] LABS: Anisocytosis 1+
[2022-01-27 05:18] LABS: ALB/GLOB Ratio 0.6 RATIO (0.9-2.4); AST(SGOT) 26 U/L (15-37); Alanine Aminotransfer ALT/SGPT 29 U/L (13-56); Albumin, Serum 2.5 g/dL (3.2-5.0); Alkaline Phosphatase 73 U/L (45-117); Anion Gap 5 (5-15); BUN 20 mg/dL (7-18); BUN/Creat Ratio 21.2 RATIO (10-20); Chloride 101 mmol/L (98-107); Creatinine, Serum 0.94 mg/dL (0.55-1.02); EST Glomerular Filtration Rate 61 mL/min (>60); Est Glom Filt Rate - Afr Amer 74 mL/min (>60); Estimated Creatinine Clearance 38.42 ml/min; Globulin 4.2 g/dL (2.2-4.2); Glucose 96 mg/dL (74-106); Magnesium 2.1 mg/dL (1.6-2.6); Phosphorus 2.2 mg/dL (2.5-4.9); Potassium 3.7 mmol/L (3.5-5.1); Protein, Total 6.7 g/dL (6.4-8.2); Sodium Level 134 mmol/L (136-145); Thyroid Stim Hormone (TSH) 0.32 uIU/mL (0.358-3.74)
[2022-01-27] MEDS: Acetaminophen 325 MG Tablet 650 MG PO ×2 (05:45→20:31)
[2022-01-27 08:03] LABS: T4 Free Direct 1.69 ng/dL (0.76-1.46)
--- NOTE | 2022-01-27 09:55 | CON.PCM.CC_ITS ---
Assessment & Plan Assessment/Plan (1) Pleural effusion on right: PLAN: Plan RECOMMENDATIONS: 1. Consider tube thoracotomy in the setting of complicated parapneumonic effusion/empyema. 2. Continue empiric broad-spectrum antimicrobials. 3. Check coagulation profile. 4. Continue scheduled bronchodilators. IMPRESSIONS: 1. Recurrent right-sided pleural effusion The patient presents again with a recurrent right-sided pleural effusion. Previously, the effusion was felt to be the consequence of underlying heart failure and/or pulmonary hypertension. However, the pleural fluid composition is quite different on this thoracentesis as has been in the past. The pleural fluid is now a neutrophil predominant exudate with low glucose, concerning for complicated parapneumonic effusion versus empyema. The patient's blood cultures are also positive for gram-negative, which raises the possibility that the effusion is the source of the bacteremia. However, the patient is otherwise clinically stable at the current time. In light of her pleural fluid analysis, especially the low glucose, the patient would likely benefit from tube thoracotomy. Plan to continue empiric broad-spectrum antimicrobials as ordered, pending finalized culture results. 2. Heart failure with preserved ejection fraction/paroxysmal atrial fibrillation/COPD/GERD Complicates care, management, recovery and prognosis. Continue home medications as indicated. This note was generated with [employer] dictation software. It may contain incorrect words, spelling, and punctuation that were not noted in checking the note before signing. HPI Consult Data Date of Consult: 01/28/22 HPI Narrative Reason for Consultation: Pleural effusion HPI Narrative: The patient is a 76-year-old female, with a history as outlined below, who presented to the emergency department on January 26 with shortness of breath and chest pain. The patient is currently followed by Dr. Mariee in the pulmonary medicine clinic, due to a history of pleural effusions and COPD. She is also followed by cardiology due to a history of atrial fibrillation and heart failure. The patient has had 3 separate thoracenteses since April 2021.? Despite 3 separate thoracenteses the pleural fluid was only sent for cell count analysis on one occasion which revealed mixed cellularity with lymphocyte predominance.? Pleural fluid cytology from April 2021, June 2021 and July 2021 were all negative for malignancy. On presentation to the emergency department, the patient was noted to be afebrile and hemodynamically stable. Initial laboratory evaluation revealed an elevated white blood cell count to 24,000. D-dimer was elevated at 1.5. Chemistry profile was notable for a potassium of 3.4 and creatinine of 1.18. Lactate was within normal limits. BNP was elevated at 600. Urine analysis was unremarkable. MRSA screen was negative. CTA chest showed no evidence for pulmonary embolism. A moderate right-sided pleural effusion with associated compressive atelectasis was noted. The patient was subsequently placed on antimicrobials and admitted to the medical surgical floor for further management. On January 26, the patient underwent an ultrasound-guided thoracentesis with 200 mL of blood-tinged purulent fluid drained from the right hemithorax. Since that time, the patient's blood cultures have also turned positive for gram-negative rods. The patient's initial pleural fluid analysis revealed a neutrophil predominant exudate with low glucose. [facility] Medical History Atrial fibrillation Chronic anticoagulation Chronic atrial fibrillation with RVR Congestive heart failure (CHF) COPD (chronic obstructive pulmonary disease) COPD (chronic obstructive pulmonary disease) Embolic infarction Exudative pleural effusion GERD (gastroesophageal reflux disease) Goiter Hepatic congestion HLD (hyperlipidemia) HTN (hypertension) Hypertension Hypokalemia Hyponatremia Leukocytosis Marfans syndrome Non-smoker PAF (paroxysmal atrial fibrillation) Paroxysmal atrial fibrillation with RVR Pleural effusion PNA (pneumonia) Pulmonary hypertension Recurrent pleural effusion Renal cyst Renal infarction Rheumatoid arthritis Rheumatoid arthritis Splenic infarction Substance abuse Subtherapeutic international normalized ratio (INR) Home Medications omeprazole 40 mg capsule,delayed release 40 mg PO DAILY GERD 10/19/14 [History Last Taken 07/13/21] calcium carbonate 600 mg calcium (1,500 mg) tablet 600 mg PO DAILY SUPPLEMENT 06/19/19 [History Last Taken 07/12/21] multivitamin 1 tab PO DAILY SUPPLEMENT 06/19/19 [History Last Taken 07/12/21] Handicap placard #1 ea 01/07/20 [Rx Last Taken Unknown] albuterol sulfate 90 mcg/actuation aerosol inhaler 2 puff inhalation Q4H PRN SOB 01/09/20 [History Last Taken 1 Week Ago ~06/30/21] potassium chloride 20 mEq tablet,extended release(part/cryst) 20 meq PO BID SUPPLEMENT 04/26/21 [History Last Taken 07/13/21] furosemide 40 mg tablet 40 mg PO BID FLUID #180 tabs 09/16/21 [Rx Last Taken Unknown] diltiazem HCl 240 mg capsule,extended release 24 hr 240 mg PO DAILY HEART #90 caps 11/15/21 [Rx Last Taken Unknown] metoprolol tartrate 100 mg tablet 100 mg PO DAILY 12/01/21 [History Last Taken Unknown] warfarin 4 mg tablet See Rx Instructions PO .COMPLEX AFIB 12/01/21 [History Last Taken Unknown] amiodarone 200 mg tablet 100 mg PO DAILY #45 tabs 12/20/21 [Rx Last Taken Unkn own] Allergy/AdvReac Type Severity Reaction Status Date / Time pneumococcal vaccine Allergy Severe Rash Verified 01/26/22 05:20 [From Prevnar 13 (PF)] Latex, Natural Rubber Allergy Rash Verified 01/26/22 05:20 rosuvastatin calcium Allergy myalgias Verified 01/26/22 05:20 [From Crestor] ibuprofen AdvReac Nausea Verified 01/26/22 05:20 Family History Mother Diabetes Colon cancer Marfan syndrome Sister Diabetes Hypertension Brother Marfan syndrome COPD (chronic obstructive pulmonary disease) Brother Marfan syndrome Father Gastric ulcer GERD (gastroesophageal reflux disease) Surgical History History of eye surgery History of hysterectomy Social History household members: spouse and children housing: house Smoking Status: Never smoker alcohol intake: never substance use type: does not use caffeine: Yes Type: coffee Number of servings: 4 ROS Constitutional Constitutional: Reports chills, fatigue, malaise and weakness Eyes Eyes: Denies blurry vision or change in vision ENT HEENT: Denies dizziness, dysphagia, epistaxis or headache(s) Cardiovascular Cardiovascular: Reports chest pain Respiratory/Chest Respiratory/Chest: Reports cough and dyspnea Gastrointestinal Gastrointestinal: Denies abdominal pain, diarrhea, nausea or vomiting Genitourinary Genitourinary: Denies difficulty urinating Musculoskeletal Musculoskeletal: Reports back pain Integumentary Integumentary: Denies lesions, rash or skin ulcer Neurologic Neurologic: Denies abnormal gait or abnormal speech Psychiatric Psychiatric: Denies anxiety or depression Endocrine Endocrinology: Denies fatigue Hematologic/Lymphatic Hematologic/Lymphatic: Denies easy bleeding or easy bruising Physical Exam Const alert, oriented x3 and no apparent distress General Appearance: cooperative HEENT normocephalic, head/scalp atraumatic and moist oral mucous membranes Eyes PERRL, EOMs intact bilaterally and conjunctivae normal Neck supple General: trachea midline Chest inspection of chest normal Resp normal respiratory effort Auscultation: rales and diminished lung sounds Cardio regular rate and regular rhythm GI normal to inspection, nondistended, normoactive bowel sounds Extremity no clubbing, cyanosis or edema Skin no rashes or lesions noted Neuro CN's II-XII intact bilaterally, moves all extremities and no focal motor deficits Psych cooperative and affect normal Lab / Micro Data Result Diagrams: 01/28/22 04:26 01/28/22 04:26 Labs: Laboratory Results - last 24 hr 01/26/22 05:40: Total Bilirubin Cancelled, Direct Bilirubin 0.25, AST Cancelled, ALT Cancelled, Alkaline Phosphatase Cancelled, Lactate Dehydrogenase 192, Total Protein Cancelled, Albumin Cancelled, Globulin Cancelled 01/26/22 10:46: Fluid Glucose 39 L, Fluid Total Protein 4.7, Fluid LDH 506 01/26/22 10:46: Fluid Source THORACENTESIS, Fluid Color RED, Fluid Appearance TURBID, Fluid WBC 19.668, Fluid RBC 0.033, Fluid Tot Cell Count 19.680 H, Fld Polynuclear WBCs # 16.235, Fld Polynuclear WBCs % 82.7, Fluid Mononuclear WBCs 3.407, Fld Mononuclear WBCs % 17.3, Fluid Neutrophils 84, Fluid Lymphocytes 16, Fl Pathologist Comment May follow, Fluid Comment 2 SEE COMMENT 01/26/22 13:20: MRSA (PCR) Negative 01/26/22 20:25: Urine Color Yellow, Urine Clarity Clear, Urine pH 6.0, Ur Specific [place] 1.015, Urine Protein 30 H, Urine Glucose (UA) Normal, Urine Ketones 5 H, Urine Occult Blood 10 H, Urine Nitrite Negative, Urine Bilirubin Negative, Urine Urobilinogen Normal, Ur Leukocyte Esterase Negative, Urine RBC 0-5 SEEN, Urine WBC 0 SEEN, Ur Squamous Epith Cells 0-5 SEEN, Urine Bacteria 0 SEEN, Urine Mucus 0 SEEN 01/27/22 04:00: B-Natriuretic Peptide 599.1 H 01/27/22 04:00: WBC 26.1 H, RBC 4.17 L, Hgb 11.5 L, Hct 35.6 L, MCV 85.4, MCH 27.6, MCHC 32.3, RDW Std Deviation 48.6 H, RDW Coeff of Angelo 15.4 H, Plt Count 255, MPV 9.1, Immature Gran % (Auto) 1.100 H, Neut % (Auto) 81.9 H, Lymph % (Auto) 5.6 L, [place] % (Auto) 11.2 H, Eos % (Auto) 0.0, Baso % (Auto) 0.2, Absolute Neuts (auto) 21.4 H, Absolute Lymphs (auto) 1.46, Nucleated RBC % 0, D iff Path Review October, Anisocytosis 1+ 01/27/22 04:00: Sodium 134 L, Potassium 3.7, Chloride 101, Carbon Dioxide 28.0, Anion Gap 5, BUN 20 H, Creatinine 0.94, Estim Creat Clear Calc 38.42, Est GFR (MDRD) Af Amer 74, Est GFR (MDRD) Non-Af 61, BUN/Creatinine Ratio 21.2 H, Glucose 96, Calcium 8.0 L, Phosphorus 2.2 L, Magnesium 2.1, Total Bilirubin 0.70, AST 26, ALT 29, Alkaline Phosphatase 73, Total Protein 6.7, Albumin 2.5 L, Globulin 4.2, Albumin/Globulin Ratio 0.6 L, TSH 0.32 L 01/27/22 04:00: Free T4 1.69 H Micro: Microbiology 01/26/22 06:45 Blood Culture (Wb) - Anticubital Right Blood Culture - Preliminary 01/26/22 06:28 Blood Culture (Wb) - Anticubital Left Blood Culture - Preliminary 01/26/22 20:25 Urine, Clean Catch Legionella Antigen - Final 01/26/22 20:25 Urine, Clean Catch Streptococcus pneumoniae Antigen (M - Final 01/26/22 12:55 Mucosa - Nasopharyngeal Respiratory Panel (PCR) - Final 01/26/22 10:46 Fluid - Thoracentesis Fluid Gram Stain - Final 01/26/22 05:45 Nasal Secretion SARS-CoV-2 & FLU Antigen (Rapid) - Final Radiology Impression Thoracentesis Ultrasound 01/26/22 08:40 IMPRESSION: Ultrasound-guided right thoracentesis. Electronically Signed: Shashi Jacobo MD at 12:04 EDT , Chest X-Ray 01/26/22 11:05 IMPRESSION: No evidence of pneumothorax following the right thoracentesis. Since prior study, there has been progressive CHF and small left pleural effusion with left basilar infiltrate and/or atelectasis. Electronically Signed: Shashi Jacobo MD at 11:20 EDT , Charges/Coding Visit Charges Inpatient E&M: 76626 Init Hosp L3
[2022-01-27 09:57] LABS: Pathologist Review Reviewed
[2022-01-27] MEDS: Amiodarone 200 MG Tablet 100 MG PO (11:11)
[2022-01-27] MEDS: dilTIAZem CD 240 MG Capsule PO (11:11)
[2022-01-27] MEDS: Enoxaparin 40 MG/0.4 ML Syringe SC (11:12)
[2022-01-27] MEDS: Multivitamins,Therapeutic Tablet 1 TABLET PO (11:12)
[2022-01-27] MEDS: 0.9% Normal Saline 1,000 ML 250 ML IV (11:12)
[2022-01-27] MEDS: Pantoprazole Sodium 40 MG Tablet PO (11:12)
[2022-01-27] MEDS: guaiFENesin 1,200 MG Tablet 1200 MG PO ×2 (11:12→20:32)
[2022-01-27] MEDS: Metoprolol Tartrate 100 MG Tablet PO (11:12)
--- NOTE | 2022-01-27 12:30 | CASEMGMT ---
PEYTON TONY Assessment: RN CM to room to meet with patient for initial transition planning/care coordination assessment. PEYTON TONY introduced self and role at [facility]. Patient voices understanding and consents to assessment at this time. Patient resting in bed. She is alert and oriented and answers all questions appropriately. Care providers, pharmacy, and demographics verified/updated at this time. PCP: Wes Magallon Specialists: [facility]- pulmonology, [place]- cardiology Preferred Pharmacy: [facility] Insurance: [employer] Prescription Benefit: yes Living Will/HPOA: Patient does not have a living will or HPOA. She states is interested in completing. Catia MATA, made aware. LNOK: . 5 dtrs and 2 sons. 2 dtr's names are: Airam Beck and Elle Fishman Living Arrangements: Patient lives with , two sons, daughter and grandson in two story house with 3 steps to enter with a handrail present. Patient wsa independent with ADLs and IADL's until the last couple of days when she became weak. She also takes care of her handicap son. Patient typically ambulates independently without the use of an assistive device @ her baseline. Transportation: Patient does not drive. Patient's and children drive patient and patient denies transportation concerns. DME: Patient has a shower chair, hand-held shower, cane, and rollator in the home. Patient denies need for additional DME at this time. Patient does not have home oxygen or a pulse oximeter. Patient takes Coumadin for chronic atrial fibrillation. SNF/HHC: No hx SNF. Has had [facility] in the past (07/2021). Patient has no concerns with going home at time of discharge and would like HHC. ?Pt was provided with list of? [facility] providers including quality and resource use data and consistent with the patient's preferred geographic region, medical needs, and insurance network. ?The pt's preferred provider is??[facility]. Call placed to Rosa Maria @ [facility] and referral made . Order placed for SN and PT/OT. CM to follow for any discharge planning/needs. Patient voices no concerns/needs at this time. Advised patient to ask for CM if any questions/concerns/needs arise. Voices understanding. Plan: home w/[facility], pending acceptance. DGiauque BSN RN CM
--- NOTE | 2022-01-27 12:33 | EX.PCM.CON.S ---
Assessment & Plan Assessment/Plan (1) Pleural effusion on right: (2) Bacteremia due to Gram-negative bacteria: (3) Pneumonia: PLAN: Plan Discussed with patient the planned procedure placing a right chest tube for better drainage of this pleural effusion may also be empyema. Discuss the procedure as well as possible transfer to tertiary care facility with thoracic if this does not resolve well with chest tube. Patient currently had no further questions this time. Fatimah Mcclain M.D. Pager: [phone] [facility] [address] [place] [address], Outpatient Pavilion, [address] [place] [address] Office: [phone] HPI Consult Data Date of Consult: 01/28/22 HPI Narrative Reason for Consultation: Right chest tube placement HPI Narrative: NIMISHA CEJA, is a 76 F who admitted due to pneumonia, right pleural effusion possible empyema, bacteremia and gram-negative. Patient did have an attempted thoracentesis yesterday however due to the thick fluid obtain unable to completely drain this was sent for culture currently gram stain is only showing white blood cells 3+. Patient's blood cultures are positive for gram-negative organisms. Requested placement of a right chest tube for drainage of possible empyema. [facility] Medical History Atrial fibrillation Chronic anticoagulation Chronic atrial fibrillation with RVR Congestive heart failure (CHF) COPD (chronic obstructive pulmonary disease) COPD (chronic obstructive pulmonary disease) Embolic infarction Exudative pleural effusion GERD (gastroesophageal reflux disease) Goiter Hepatic congestion HLD (hyperlipidemia) HTN (hypertension) Hypertension Hypokalemia Hyponatremia Leukocytosis Marfans syndrome Non-smoker PAF (paroxysmal atrial fibrillation) Paroxysmal atrial fibrillation with RVR Pleural effusion PNA (pneumonia) Pulmonary hypertension Recurrent pleural effusion Renal cyst Renal infarction Rheumatoid arthritis Rheumatoid arthritis Splenic infarction Substance abuse Subtherapeutic international normalized ratio (INR) Home Medications omeprazole 40 mg capsule,delayed release 40 mg PO DAILY GERD 10/19/14 [History Last Taken 07/13/21] calcium carbonate 600 mg calcium (1,500 mg) tablet 600 mg PO DAILY SUPPLEMENT 06/19/19 [History Last Taken 07/12/21] multivitamin 1 tab PO DAILY SUPPLEMENT 06/19/19 [History Last Taken 07/12/21] Handicap placard #1 ea 01/07/20 [Rx Last Taken Unknown] albuterol sulfate 90 mcg/actuation aerosol inhaler 2 puff inhalation Q4H PRN SOB 01/09/20 [History Last Taken 1 Week Ago ~06/30/21] potassium chloride 20 mEq tablet,extended release(part/cryst) 20 meq PO BID SUPPLEMENT 04/26/21 [History Last Taken 07/13/21] furosemide 40 mg tablet 40 mg PO BID FLUID #180 tabs 09/16/21 [Rx Last Taken Unknown] diltiazem HCl 240 mg capsule,extended release 24 hr 240 mg PO DAILY HEART #90 caps 11/15/21 [Rx Last Taken Unknown] metoprolol tartrate 100 mg tablet 100 mg PO DAILY 12/01/21 [History Last Taken Unknown] warfarin 4 mg tablet See Rx Instructions PO .COMPLEX AFIB 12/01/21 [History Last Taken Unknown] amiodarone 200 mg tablet 100 mg PO DAILY #45 tabs 12/20/21 [Rx Last Taken Unknown] Allergy/AdvReac Type Severity Reaction Status Date / Time pneumococcal vaccine Allergy Severe Rash Verified 01/26/22 05:20 [From Prevnar 13 (PF)] Latex, Natural Rubber Allergy Rash Verified 01/26/22 05:20 rosuvastatin calcium Allergy myalgias Verified 01/26/22 05:20 [From Crestor] ibuprofen AdvReac Nausea Verified 01/26/22 05:20 Family History Mother Diabetes Colon cancer Marfan syndrome Sister Diabetes Hypertension Brother Marfan syndrome COPD (chronic obstructive pulmonary disease) Brother Marfan syndrome Father Gastric ulcer GERD (gastroesophageal reflux disease) Surgical History History of eye surgery History of hysterectomy Social History household members: spouse and children housing: house Smoking Status: Never smoker alcohol intake: never substance use type: does not use caffeine: Yes Type: coffee Number of servings: 4 ROS Constitutional Constitutional: Denies anorexia or fever(s) Eyes Eyes: Denies change in vision ENT HEENT: Denies dysphagia Cardiovascular Cardiovascular: Denies chest pain Respiratory/Chest Respiratory/Chest: Reports shortness of breath with exertion and wheezing Gastrointestinal Gastrointestinal: Denies abdominal pain, nausea or vomiting Genitourinary Genitourinary: Denies dysuria Musculoskeletal Musculoskeletal: Denies numbness Integumentary Integumentary: Denies rash Neurologic Neurologic: Denies focal weakness Psychiatric Psychiatric: Denies depression Endocrine Endocrinology: Denies palpitations Hematologic/Lymphatic Hematologic/Lymphatic: Reports easy bleeding and easy bruising Lab / Micro Data Result Diagrams: 01/28/22 04:26 01/28/22 04:26 Labs: Laboratory Results - last 24 hr 01/26/22 05:40: Diff Path Review Reviewed 01/26/22 05:40: Total Bilirubin Cancelled, Direct Bilirubin 0.25, AST Cancelled, ALT Cancelled, Alkaline Phosphatase Cancelled, Lactate Dehydrogenase 192, Total Protein Cancelled, Albumin Cancelled, Globulin Cancelled 01/26/22 10:46: Fluid Glucose 39 L, Fluid Total Protein 4.7, Fluid LDH 506 01/26/22 13:20: MRSA (PCR) Negative 01/26/22 20:25: Urine Color Yellow, Urine Clarity Clear, Urine pH 6.0, Ur Specific [place] 1.015, Urine Protein 30 H, Urine Glucose (UA) Normal, Urine Ketones 5 H, Urine Occult Blood 10 H, Urine Nitrite Negative, Urine Bilirubin Negative, Urine Urobilinogen Normal, Ur Leukocyte Esterase Negative, Urine RBC 0-5 SEEN, Urine WBC 0 SEEN, Ur Squamous Epith Cells 0-5 SEEN, Urine Bacteria 0 SEEN, Urine Mucus 0 SEEN 01/27/22 04:00: B-Natriuretic Peptide 599.1 H 01/27/22 04:00: WBC 26.1 H, RBC 4.17 L, Hgb 11.5 L, Hct 35.6 L, MCV 85.4, MCH 27.6, MCHC 32.3, RDW Std Deviation 48.6 H, RDW Coeff of Angelo 15.4 H, Plt Count 255, MPV 9.1, Immature Gran % (Auto) 1.100 H, Neut % (Auto) 81.9 H, Lymph % (Auto) 5.6 L, [place] % (Auto) 11.2 H, Eos % (Auto) 0.0, Baso % (Auto) 0.2, Absolute Neuts (auto) 21.4 H, Absolute Lymphs (auto) 1.46, Nucleated RBC % 0, Diff Path Review May foll, Anisocytosis 1+ 08/25/22 04:00: Sodium 134 L, Potassium 3.7, Chloride 101, Carbon Dioxide 28.0, Anion Gap 5, BUN 20 H, Creatinine 0.94, Estim Creat Clear Calc 38.42, Est GFR (MDRD) Af Amer 74, Est GFR (MDRD) Non-Af 61, BUN/Creatinine Ratio 21.2 H, Glucose 96, Calcium 8.0 L, Phosphorus 2.2 L, Magnesium 2.1, Total Bilirubin 0.70, AST 26, ALT 29, Alkaline Phosphatase 73, Total Protein 6.7, Albumin 2.5 L, Globulin 4.2, Albumin/Globulin Ratio 0.6 L, TSH 0.32 L 01/27/22 04:00: Free T4 1.69 H Micro: Microbiology 01/26/22 10:46 Fluid - Thoracentesis Fluid Gram Stain - Final 01/26/22 10:46 Fluid - Thoracentesis Fluid Body Fluid Culture - Preliminary 01/26/22 06:28 Blood Culture (Wb) - Anticubital Left Blood Culture - Preliminary Gram negative cocco bacillus 01/26/22 20:25 Urine Catheter - Catheter Urine Culture - Preliminary Culture exhibits no growth. 01/26/22 06:45 Blood Culture (Wb) - Anticubital Right Blood Culture - Preliminary Gram negative cocco bacillus 01/26/22 20:25 Urine, Clean Catch Legionella Antigen - Final 01/26/22 20:25 Urine, Clean Catch Streptococcus pneumoniae Antigen (M - Final 01/26/22 12:55 Mucosa - Nasopharyngeal Respiratory Panel (PCR) - Final Charges/Coding Visit Charges Inpatient E&M: 77808 Init Hosp L3
[2022-01-27 12:58] LABS: International Normalized Ratio 2.5; Prothrombin Time (Protime)PT. 26.8 SECONDS (11.7-14.9)
[2022-01-27] MEDS: Lidocaine 1% /Epi 1:100 (20ml) 20 ML Vial INFILT (13:26)
[2022-01-27] MEDS: Morphine 2 MG/ML Syringe IV (13:27)
--- NOTE | 2022-01-27 13:31 | RAD_ITS ---
STUDY: X-RAY CHEST REASON FOR EXAM: Female, 76 years old. Chest tube placement TECHNIQUE: Single AP portable view of the chest. COMPARISON: Comparison is made with prior examination dated 01/26/2022. FINDINGS: A right-sided chest tube has been placed with the tip in the upper right hemithorax. Small amount of overlying subcutaneous emphysema. Since prior study, there has been improved pleural-parenchymal changes at the right lung base. The left lung base is unchanged. Normal size heart. Normal mediastinum and claudia. Normal visualized pulmonary arteries. There is atherosclerotic calcification of the aortic arch with tortuosity. There are diffuse degenerative changes of the visualized thoracic spine. Normal visualized ribs, clavicles, and shoulders. There is no demonstrated abnormality of the visualized soft tissue structures of the upper abdomen. RAD/Chest 1 View (Portable) IMPRESSION: Status post right chest tube placement with improved aeration at the right lung base. Electronically Signed: Shashi Jacobo MD at 14:05 EDT ,
[2022-01-27 13:32] LABS: Free T3 1.2 pg/mL (2.18-3.98)
--- NOTE | 2022-01-27 13:33 | OP.PCM_ITS ---
Report of Operation Date of Procedure: 01/27/22 Pre-Operative Diagnosis: Right lung effusion, possible empyema Post-Operative Diagnosis: Same Surgery/Procedure Performed:: Placement of 28 Sammarinese right chest tube Description of Surgical Findings:: About 300 cc of purulent/sanguinous fluid on the bed at about 350 in the Pleur- evac?lightening up in color/less purulent Surgeon: Fatimah Mcclain Type of Anesthesia: Local Specimen's removed: Drains: 300 cc on bed, 350 cc in pleurovac-right CT Estimated Blood Loss (mL): minimal Description of Procedure: Consent was obtained. Patient's right anterior axillary line was prepped draped in usual sterile fashion with chlorhexidine after having patient raise her arm above her head bed was laid as flat as patient was able to tolerate. Local anesthesia of 1% lidocaine with epinephrine total of 10 cc was used to infiltrate this area of planned to placement. 15 blade scalpel was used to make incision in the skin. Tonsil was used dissect the subcutaneous tissue to above the rib. Pleural space was entered with a tonsil verified by fluid. A 28 Sammarinese chest tube was placed directed posteriorly and superiorly. Chest tube met resistance at about 8 cm at the skin. Did try to remove and replace the tube however still only got to about 8 to 10 cm at the skin. This was sutured in place with 0 silk suture and a stay suture was also placed. Vaseline gauze was placed around entry site tube was secured with gauze and tape. Patient had about 300 cc serous/purulent fluid on the bed at about another 350 cc in the the canister. Patient did have some mild discomfort with the procedure. Overall patient tolerated procedure well. Chest x-ray was ordered for verification of chest tube placement. Addendum: Tube is in adequate placement maybe fissured; however pleural effusion looks to be fairly well drained per chest x-ray. Complications none
--- NOTE | 2022-01-27 14:02 | PCM.PN.HOSP ---
Subjective Subjective Having some pleuritic chest pain on the right. Reports she is feeling a little bit better overall. No significant issues overnight. Objective Data Objective Data Vital Signs: Vital Signs Temp Pulse Resp BP Pulse Ox O2 Del Method O2 Flow Rate 98.2 F 88 18 117/55 L 96 Nasal Cannula 3 01/27/22 11:10 01/27/22 13:36 01/27/22 13:36 01/27/22 11:10 01/27/22 13:36 01/27/22 13:36 01/27/22 13:36 Oxygen Flow Rate (L/min) [2] 3 Oxygen Flow Rate (L/min) [1 ( 3 Initial Baseline)] Oxygen Flow Rate (L/min) 3 Oxygen Delivery Method [3] Room Air Oxygen Delivery Method [2] Nasal Cannula Oxygen Delivery Method [1 ( Nasal Cannula Initial Baseline)] Oxygen Delivery Method Nasal Cannula Weight: 60 kg Body Mass Index (BMI) 25.0 Intake & Output: Intake and Output for Last 24 Hours 01/25/22 01/26/22 01/27/22 23:59 23:59 23:59 Intake Total 1805 / 1805 1107 / 1107 Output Total 500 / 500 550 / 550 Balance 1305 / 1305 557 / 557 Lab / Micro Data Result Diagrams: 01/27/22 04:00 01/27/22 04:00 Labs: Laboratory Results - last 24 hr 01/26/22 05:40: Diff Path Review Reviewed 01/26/22 05:40: Total Bilirubin Cancelled, Direct Bilirubin 0.25, AST Cancelled, ALT Cancelled, Alkaline Phosphatase Cancelled, Lactate Dehydrogenase 192, Total Protein Cancelled, Albumin Cancelled, Globulin Cancelled 01/26/22 13:20: MRSA (PCR) Negative 01/26/22 20:25: Urine Color Yellow, Urine Clarity Clear, Urine pH 6.0, Ur Specific [place] 1.015, Urine Protein 30 H, Urine Glucose (UA) Normal, Urine Ketones 5 H, Urine Occult Blood 10 H, Urine Nitrite Negative, Urine Bilirubin Negative, Urine Urobilinogen Normal, Ur Leukocyte Esterase Negative, Urine RBC 0-5 SEEN, Urine WBC 0 SEEN, Ur Squamous Epith Cells 0-5 SEEN, Urine Bacteria 0 SEEN, Urine Mucus 0 SEEN 01/27/22 04:00: B-Natriuretic Peptide 599.1 H 01/27/22 04:00: WBC 26.1 H, RBC 4.17 L, Hgb 11.5 L, Hct 35.6 L, MCV 85.4, MCH 27.6, MCHC 32.3, RDW Std Deviation 48.6 H, RDW Coeff of Angelo 15.4 H, Plt Count 255, MPV 9.1, Immature Gran % (Auto) 1.100 H, Neut % (Auto) 81.9 H, Lymph % (Auto) 5.6 L, [place] % (Auto) 11.2 H, Eos % (Auto) 0.0, Baso % (Auto) 0.2, Absolute Neuts (auto) 21.4 H, Absolute Lymphs (auto) 1.46, Nucleated RBC % 0, Diff Path Review May foll, Anisocytosis 1+ 01/27/22 04:00: Sodium 134 L, Potassium 3.7, Chloride 101, Carbon Dioxide 28.0, Anion Gap 5, BUN 20 H, Creatinine 0.94, Estim Creat Clear Calc 38.42, Est GFR (MDRD) Af Amer 74, Est GFR (MDRD) Non-Af 61, BUN/Creatinine Ratio 21.2 H, Glucose 96, Calcium 8.0 L, Phosphorus 2.2 L, Magnesium 2.1, Total Bilirubin 0.70, AST 26, ALT 29, Alkaline Phosphatase 73, Total Protein 6.7, Albumin 2.5 L, Globulin 4.2, Albumin/Globulin Ratio 0.6 L, TSH 0.32 L 01/27/22 04:00: Free T4 1.69 H 01/27/22 04:00: Free T3 pg/dL 1.2 L 01/27/22 12:30: PT 26.8 H, INR 2.5 Micro: Microbiology 01/26/22 10:46 Fluid - Thoracentesis Fluid Gram Stain - Final 01/26/22 10:46 Fluid - Thoracentesis Fluid Body Fluid Culture - Preliminary 01/26/22 06:28 Blood Culture (Wb) - Anticubital Left Blood Culture - Preliminary Gram negative cocco bacillus 01/26/22 20:25 Urine Catheter - Catheter Urine Culture - Preliminary Culture exhibits no growth. 01/26/22 06:45 Blood Culture (Wb) - Anticubital Right Blood Culture - Preliminary Gram negative cocco bacillus 01/26/22 20:25 Urine, Clean Catch Legionella Antigen - Final 01/26/22 20:25 Urine, Clean Catch Streptococcus pneumoniae Antigen (M - Final 01/26/22 12:55 Mucosa - Nasopharyngeal Respiratory Panel (PCR) - Final 01/26/22 05:45 Nasal Secretion SARS-CoV-2 & FLU Antigen (Rapid) - Final Physical Exam Const alert, oriented x3, no apparent distress and average body habitus Constitutional Narrative: Unhealthy appearing older white female sitting up in bed getting ready to eat breakfast, patient appears comfortable at this time but ill General Appearance: cooperative HEENT normocephalic, head/scalp atraumatic and hearing grossly normal bilaterally Resp normal respiratory effort, no retractions and no use of accessory muscles Resp Narrative: Remains diminished at the right base Auscultation: Negative for crackles, rhonchi or wheezes Cardio regular rate, regular rhythm, S1 normal heart sound, S2 normal heart sound, no murmurs, no rub, no gallops, no clicks and no JVD GI normal to inspection, nondistended, normoactive bowel sounds, soft to palpation, non-tender and non-distended Extremity Extremity Narrative: Remains with slight edema in the right lower extremity, varicosities noted, erythema has improved, no significant drainage, scratches noted Neuro oriented x3, moves all extremities and no focal motor deficits Neuro Narrative: Marked generalized weakness Speech: speech normal Assessment & Plan Assessment/Plan (1) Pneumonia: (2) Hypoxia: (3) Pleural effusion on right: (4) Leukocytosis: (5) Hypokalemia: (6) Dehydration: (7) Bacteremia due to Gram-negative bacteria: (8) Empyema: (9) Hypophosphatemia: PLAN: Plan Acute hypoxia secondary to suspected gram-negative pneumonia -Oxygen saturations 87% on room air upon presentation -Remains on 2 L nasal cannula with oxygen saturations 92 to 95% -Wean as able -Aggressive pulmonary toilet -Pep therapy -Respiratory panel is negative -Strep pneumo and Legionella antigens are negative -Sputum culture-unable to produce -Blood cultures are showing gram-negative cocci bacillus 2 out of 2 -Patient is not O2 dependent at baseline -Pulmonary medicine is consulted following Gram-negative bacteremia -Antibiotics broadened from ceftriaxone azithromycin to Zosyn and azithromycin was discontinued -Blood cultures are currently showing gram-negative cocci bacillus -Continue to monitor for sensitivities and identification Right-sided exudative pleural effusion-suspected empyema -Patient has had history of recurrent right pleural effusions with 2 thoracenteses performed back in July -Fluid volume does not seem as high as it had been previously -Thoracentesis was performed for 200 cc and is concerning for empyema -Fluid cultures/cytology pending -General surgery consulted for chest tube placement -Pulmonary following-appreciate input Cellulitis -Patient appears to have right lower extremity cellulitis related to bumping her leg recently -Stable scratches -No current needs for wound care but will monitor -Improving clinically Hypophosphatemia -Phosphorus 2.2 this morning -K-Phos bolus given -Repeat in a.m. Dehydration -Resolved Leukocytosis -White count worsened today -Antibiotics changed as above -Continue to monitor with CBC in a.m. D-dimer elevation -INR is now therapeutic at 2.5 -CTA is negative for PE Hyponatremia -Baseline serum sodium tends to fluctuate however when she is well it appears to be normal -Proving Hypokalemia -Resolved Splenic/renal infarct -I suspect this is related to her subtherapeutic INR and atrial fibrillation -Patient has chronically been on Coumadin--> INR is currently therapeutic at 2.5 -Was on Xarelto in the past but states that she had adverse reactions to this -Hold Coumadin today with dramatic increase -Repeat INR in a.m. HFpEF-compensated -Reevaluate for the initiation of home Lasix when blood pressure and fluid status stabilizes Hypertension -Continue metoprolol/diltiazem Hyperlipidemia -Currently on no medical therapy -Follows with outpatient primary care physician PAF -Currently sinus rhythm -Continue home metoprolol and diltiazem -Continue home amiodarone -INR 2.5 -Hold Coumadin with rapid rise -May need decreased dose especially while ill and on antibiotics -Check daily INR GERD -Continue omeprazole DVT prophylaxis -Discontinue Lovenox -NR therapeutic at 2.5 CODE STATUS -Full code as per discussion upon admission Charges/Coding Visit Charges Inpatient E&M: 69376 Subs Hosp L2
--- NOTE | 2022-01-27 15:48 | CASEMGMT ---
Received notification from Rosa Maria at [facility] that pt is accepted and they can start services on Monday. Pt aware.
--- NOTE | 2022-01-27 16:57 | CASEMGMT ---
Social Work Living Will and HCPOA completed per pt request. Original and copy provided to pt. Copies placed on chart. KASSIE QuirosW
[2022-01-27] MEDS: Polyethylene Glycol 3350 17 GM PACKET PO (17:50)
[2022-01-27] MEDS: oxyCODONE 5 MG Tablet PO (20:31)
[2022-01-28] VITALS (14 sets, daily range): BP systolic 102–128; BP diastolic 41–60; PULSE 63–76; RESP 16–22; TEMP 36.1–36.9; O2SAT 93–96
[2022-01-28] MEDS: oxyCODONE 5 MG Tablet PO ×2 (01:11→13:38)
[2022-01-28] MEDS: Ipratropium/Albuterol Sulfate 3 ML AMPUL.NEB INHALATION ×4 (01:30→19:20)
[2022-01-28] MEDS: Acetaminophen 325 MG Tablet 650 MG PO ×3 (05:18→20:54)
[2022-01-28 05:37] LABS: Absolute Lymphocyte Count 1.16 X10^3/uL (0.83-4.51); Absolute Neutrophil Count 17.2 X10^3/uL (2.0-7.7); Basophil# 0.04 X10^3/uL; Basophil% 0.2 % (0-1); Eosinophil# 0.02 X10^3/uL; Eosinophils% 0.1 % (0-5); Hematocrit 34.6 % (37-47); Lymphocyte # 1.16 X10^3/ul (0.83-4.51); Lymphocyte % 5.7 % (19-41); Mean Corp Hgb Conc 31.8 g/dL (32-36); Mean Corpuscular Hgb 27.6 pg (27.0-32.0); Mean Corpuscular Volume 86.7 fL (81-99); Mean Platelet Vol. 9.6 fl (6.2-12.0); Monocyte# 1.69 X10^3/uL; Monocyte% 8.3 % (0-10); NRBC Flagged by Analyzer 0 % (0-5); Neutrophil # 17.16 X10^3/uL (2.7-7.7); Neutrophil % 84.4 % (47-70); POSITIVE DIFFERENTIAL YES; Platelet Count 261 K/mm3 (150-450); RBC Distribution Width CV 15.5 % (11.6-14.6); RBC Distribution Width SD 48.9 fl (35.1-43.9); Red Blood Count 3.99 M/mm3 (4.2-5.4); White Blood Count 20.3 K/mm3 (4.4-11.0)
[2022-01-28 05:46] LABS: Differential Indicated SCAN CRITERIA MET
[2022-01-28 06:02] LABS: Anion Gap 2 (5-15); BUN 13 mg/dL (7-18); Calcium,Total 8.1 mg/dL (8.5-10.1); Chloride 103 mmol/L (98-107); Creatinine, Serum 0.76 mg/dL (0.55-1.02); EST Glomerular Filtration Rate 78 mL/min (>60); Est Glom Filt Rate - Afr Amer 95 mL/min (>60); Estimated Creatinine Clearance 36.12 ml/min; Glucose 109 mg/dL (74-106); Phosphorus 2.5 mg/dL (2.5-4.9); Potassium 3.7 mmol/L (3.5-5.1); Sodium Level 134 mmol/L (136-145)
[2022-01-28 06:10] LABS: International Normalized Ratio 2.4; Prothrombin Time (Protime)PT. 25.9 SECONDS (11.7-14.9)
[2022-01-28 06:24] LABS: Differential Comment SCANNED
--- NOTE | 2022-01-28 06:55 | PCM.PN.INT ---
Assessment & Plan Assessment/Plan (1) Pleural effusion on right: PLAN: Plan RECOMMENDATIONS: 1. Continue chest tube to wall suction for now. 2. Continue empiric broad-spectrum antimicrobials. 3. Continue scheduled bronchodilators. 4. Wean supplemental oxygen to maintain saturations at or above 90%. IMPRESSIONS: 1. Recurrent right-sided pleural effusion The patient presents again with a recurrent right-sided pleural effusion. Previously, the effusion was felt to be the consequence of underlying heart failure and/or pulmonary hypertension. However, the pleural fluid composition is quite different on this thoracentesis as has been in the past. The pleural fluid is now a neutrophil predominant exudate with low glucose, concerning for complicated parapneumonic effusion versus empyema. The patient's blood cultures are also positive for gram-negatives. Therefore, the patient underwent to thoracotomy on January 27. Chest imaging is stable with improvement in the pleural effusion noted. The patient's white count is improving. Plan to continue current supportive measures including antimicrobials, pending finalized culture results. Continue chest tube to wall suction for now. 2. Heart failure with preserved ejection fraction/paroxysmal atrial fibrillation/COPD/GERD Complicates care, management, recovery and prognosis. Continue home medications as indicated. This note was generated with [employer] dictation software. It may contain incorrect words, spelling, and punctuation that were not noted in checking the note before signing. Subjective Subjective The patient was seen and examined at the bedside this morning. Events from the last 24 hours have been reviewed. The patient is currently afebrile, hemodynamically stable and maintaining appropriate oxygen saturations on 5 L/min via nasal cannula. The patient underwent chest tube placement yesterday without complication. Her white count remains elevated this morning at 20,000. INR is stable at 2.4. Since its insertion, the patient's chest tube has put out approximately 1350 mL. Objective Data Objective Data The patient's most recent lab work, culture data and imaging studies have all been personally reviewed. Blood cultures dated January 26 demonstrated gram-negative coccobacillus. Pleural fluid cultures have still not demonstrated any growth to date. Vital Signs: Vital Signs Temp Pulse Resp BP Pulse Ox O2 Del Method O2 Flow Rate 97 F L 73 18 119/49 L 94 Nasal Cannula 5 01/28/22 05:24 01/28/22 05:24 01/28/22 05:24 01/28/22 05:24 01/28/22 05:24 01/28/22 05:26 01/28/22 05:24 Oxygen Flow Rate (L/min) [2] 3 Oxygen Flow Rate (L/min) [1 ( 3 Initial Baseline)] Oxygen Flow Rate (L/min) 5 Oxygen Delivery Method [3] Room Air Oxygen Delivery Method [2] Nasal Cannula Oxygen Delivery Method [1 ( Nasal Cannula Initial Baseline)] Oxygen Delivery Method Nasal Cannula Weight: 137 lb 12.8 oz Body Mass Index (BMI) 25.0 Intake & Output: Intake and Output for Last 24 Hours 01/26/22 01/27/22 01/28/22 23:59 23:59 23:59 Intake Total 1805 / 1805 2557 / 2557 200 / 200 Output Total 500 / 500 1450 / 1450 550 / 550 Balance 1305 / 1305 1107 / 1107 -350 / -350 Lab / Micro Data Attestation: I reviewed the patient's lab results. Result Diagrams: 01/28/22 04:26 01/28/22 04:26 Labs: Laboratory Results - last 24 hr 01/26/22 05:40: Diff Path Review Reviewed 01/27/22 04:00: Free T4 1.69 H 01/27/22 04:00: Free T3 pg/dL 1.2 L 01/27/22 12:30: PT 26.8 H, INR 2.5 01/28/22 04:26: WBC 20.3 H, RBC 3.99 L, Hgb 11.0 L, Hct 34.6 L, MCV 86.7, MCH 27.6, MCHC 31.8 L, RDW Std Deviation 48.9 H, RDW Coeff of Angelo 15.5 H, Plt Count 261, MPV 9.6, Immature Gran % (Auto) 1.300 H, Neut % (Auto) 84.4 H, Lymph % (Auto) 5.7 L, [place] % (Auto) 8.3, Eos % (Auto) 0.1, Baso % (Auto) 0.2, Absolute Neuts (auto) 17.2 H, Absolute Lymphs (auto) 1.16, Nucleated RBC % 0, Differential Comment SCANNED, Diff Path Review October01/28/22 04:26: PT 25.9 H, INR 2.4 01/28/22 04:26: Sodium 134 L, Potassium 3.7, Chloride 103, Carbon Dioxide 29.0, Anion Gap 2 L, BUN 13, Creatinine 0.76, Estim Creat Clear Calc 36.12, Est GFR (MDRD) Af Amer 95, Est GFR (MDRD) Non-Af 78, BUN/Creatinine Ratio 17.0, Glucose 109 H, Calcium 8.1 L, Phosphorus 2.5 Micro: Microbiology 01/26/22 10:46 Fluid - Thoracentesis Fluid Gram Stain - Final 01/26/22 10:46 Fluid - Thoracentesis Fluid Body Fluid Culture - Preliminary 01/26/22 06:28 Blood Culture (Wb) - Anticubital Left Blood Culture - Preliminary Gram negative cocco bacillus 01/26/22 20:25 Urine Catheter - Catheter Urine Culture - Preliminary Culture exhibits no growth. 01/26/22 06:45 Blood Culture (Wb) - Anticubital Right Blood Culture - Preliminary Gram negative cocco bacillus 01/26/22 20:25 Urine, Clean Catch Legionella Antigen - Final 01/26/22 20:25 Urine, Clean Catch Streptococcus pneumoniae Antigen (M - Final 01/26/22 12:55 Mucosa - Nasopharyngeal Respiratory Panel (PCR) - Final 01/26/22 05:45 Nasal Secretion SARS-CoV-2 & FLU Antigen (Rapid) - Final Radiography Diagnostic Testing: Radiology Impression Chest X-Ray 01/27/22 13:31 IMPRESSION: Status post right chest tube placement with improved aeration at the right lung base. Electronically Signed: Shashi Jacobo MD at 14:05 EDT , Physical Exam Const alert, oriented x3 and no apparent distress General Appearance: cooperative HEENT normocephalic, head/scalp atraumatic and moist oral mucous membranes Eyes PERRL, EOMs intact bilaterally and conjunctivae normal Neck supple General: trachea midline Chest inspection of chest normal Chest Narrative: No air leak noted in Pleur-evac Chest: chest tube right Resp normal respiratory effort Auscultation: diminished lung sounds Cardio regular rate and regular rhythm GI normal to inspection, nondistended, normoactive bowel sounds Extremity no clubbing, cyanosis or edema Skin no rashes or lesions noted Neuro CN's II-XII intact bilaterally, moves all extremities and no focal motor deficits Psych cooperative and affect normal Charges/Coding Visit Charges Inpatient E&M: 23078 Subs Hosp L2
--- NOTE | 2022-01-28 07:30 | RAD_ITS ---
STUDY: X-RAY CHEST REASON FOR EXAM: Female, 76 years old. Chest Tube TECHNIQUE: Single AP portable view of the chest. COMPARISON: Comparison is made with prior study dated 01/27/2022. FINDINGS: A right-sided chest tube is once again seen with the distal tip overlying the right upper lobe. The previously seen right subcutaneous emphysema has cleared. Stable pleural parenchymal changes at the right lung base as well as at the left lung base. There has been improvement in the vascular congestion. Normal size heart. Normal mediastinum and claudia. Normal visualized pulmonary arteries. There is atherosclerotic calcification of the aortic arch with tortuosity. There are diffuse degenerative changes of the visualized thoracic spine. Normal visualized ribs, clavicles, and shoulders. There is no demonstrated abnormality of the visualized soft tissue structures of the upper abdomen. RAD/Chest 1 View (Portable) IMPRESSION: Stable mild bibasilar pleural-parenchymal changes. The thoracic congestion has improved. Electronically Signed: Shashi Jacobo MD at 8:46 EDT ,
[2022-01-28] MEDS: guaiFENesin 1,200 MG Tablet 1200 MG PO ×2 (08:36→20:54)
[2022-01-28] MEDS: Metoprolol Tartrate 100 MG Tablet PO (08:36)
[2022-01-28] MEDS: Pantoprazole Sodium 40 MG Tablet PO (08:36)
[2022-01-28] MEDS: dilTIAZem CD 240 MG Capsule PO (08:37)
[2022-01-28] MEDS: Amiodarone 200 MG Tablet 100 MG PO (08:37)
[2022-01-28] MEDS: Multivitamins,Therapeutic Tablet 1 TABLET PO (09:11)
[2022-01-28 09:17] LABS: Pathologist Comment/Body Fluid Reviewed
--- NOTE | 2022-01-28 09:17 | PN.SURG_ITS ---
Subjective Subjective Patient states right-sided pain from chest tube is controlled with pain meds. About 200 cc in the Pleur-evac overnight changed to serous. No leak. White blood count down to 20 from 26 Objective Data Objective Data Vital Signs: Vital Signs Temp Pulse Resp BP Pulse Ox O2 Del Method O2 Flow Rate 98.3 F 76 18 115/56 L 94 Room Air 5 01/28/22 08:26 01/28/22 08:36 01/28/22 08:26 01/28/22 08:01/28/22 08:01/28/22 08:01/28/22 05:24 Oxygen Flow Rate (L/min) [2] 3 Oxygen Flow Rate (L/min) [1 ( 3 Initial Baseline)] Oxygen Flow Rate (L/min) 5 Oxygen Delivery Method [3] Room Air Oxygen Delivery Method [2] Nasal Cannula Oxygen Delivery Method [1 ( Nasal Cannula Initial Baseline)] Oxygen Delivery Method Room Air Weight: 137 lb 12.8 oz Body Mass Index (BMI) 25.0 Intake & Output: Intake and Output for Last 24 Hours 01/26/22 01/27/22 01/28/22 23:59 23:59 23:59 Intake Total 1805 / 1805 2557 / 2557 200 / 200 Output Total 500 / 500 1450 / 1450 1000 / 1000 Balance 1305 / 1305 1107 / 1107 -800 / -800 Lab / Micro Data Result Diagrams: 01/28/22 04:26 01/28/22 04:26 Labs: Laboratory Results - last 24 hr 01/26/22 05:40: Diff Path Review Reviewed 01/27/22 04:00: Free T3 pg/dL 1.2 L 01/27/22 12:30: PT 26.8 H, INR 2.5 01/28/22 04:26: WBC 20.3 H, RBC 3.99 L, Hgb 11.0 L, Hct 34.6 L, MCV 86.7, MCH 27.6, MCHC 31.8 L, RDW Std Deviation 48.9 H, RDW Coeff of Angelo 15.5 H, Plt Count 261, MPV 9.6, Immature Gran % (Auto) 1.300 H, Neut % (Auto) 84.4 H, Lymph % (Auto) 5.7 L, [place] % (Auto) 8.3, Eos % (Auto) 0.1, Baso % (Auto) 0.2, Absolute Neuts (auto) 17.2 H, Absolute Lymphs (auto) 1.16, Nucleated RBC % 0, Differential Comment SCANNED, Diff Path Review October01/28/22 04:26: PT 25.9 H, INR 2.4 01/28/22 04:26: Sodium 134 L, Potassium 3.7, Chloride 103, Carbon Dioxide 29.0, Anion Gap 2 L, BUN 13, Creatinine 0.76, Estim Creat Clear Calc 36.12, Est GFR (MDRD) Af Amer 95, Est GFR (MDRD) Non-Af 78, BUN/Creatinine Ratio 17.0, Glucose 109 H, Calcium 8.1 L, Phosphorus 2.5 Micro: Microbiology 01/26/22 06:28 Blood Culture (Wb) - Anticubital Left Blood Culture - Prelim inary Pasteurella multocida 01/26/22 06:45 Blood Culture (Wb) - Anticubital Right Blood Culture - Final Gram negative cocco bacillus 01/26/22 10:46 Fluid - Thoracentesis Fluid Gram Stain - Final 01/26/22 10:46 Fluid - Thoracentesis Fluid Body Fluid Culture - Preliminary 01/26/22 20:25 Urine Catheter - Catheter Urine Culture - Preliminary Culture exhibits no growth. 01/26/22 20:25 Urine, Clean Catch Legionella Antigen - Final 01/26/22 20:25 Urine, Clean Catch Streptococcus pneumoniae Antigen (M - Final 01/26/22 12:55 Mucosa - Nasopharyngeal Respiratory Panel (PCR) - Final 01/26/22 05:45 Nasal Secretion SARS-CoV-2 & FLU Antigen (Rapid) - Final Radiography Diagnostic Testing: Radiology Impression Chest X-Ray 01/27/22 13:31 IMPRESSION: Status post right chest tube placement with improved aeration at the right lung base. Electronically Signed: Shashi Jacobo MD at 14:05 EDT , Chest X-Ray 01/28/22 07:30 IMPRESSION: Stable mild bibasilar pleural-parenchymal changes. The thoracic congestion has improved. Electronically Signed: Shashi Jacobo MD at 8:46 EDT , Physical Exam Const oriented x3 and no apparent distress Resp normal respiratory effort Resp Narrative: Right chest tube in place, no airleak, about 200 cc serous overnight Cardio regular rate GI soft to palpation Assessment & Plan Assessment/Plan (1) Pleural effusion on right: (2) Bacteremia due to Gram-negative bacteria: (3) Pneumonia: PLAN: Plan Continue right chest tube to -20 suction. Does appear that the previous collection has been drained; however patient may require CT to further assess. Dr. Diaz will be rounding this weekend. Fatimah Mcclain M.D. Pager: [phone] [facility] [address] [place] [address], [facility], [address] [place] [address] Office: [phone] Charges/Coding Visit Charges Inpatient E&M: 06944 Subs Hosp L2
[2022-01-28 09:23] LABS: Pathologist Review Reviewed
--- NOTE | 2022-01-28 09:30 | CASEMGMT ---
Updated [facility] Elisha and Otilia to make aware that pt will not dc until early next week.
[2022-01-28] MEDS: Polyethylene Glycol 3350 17 GM PACKET PO (10:27)
--- NOTE | 2022-01-28 12:59 | PN.HOSP_ITS ---
Subjective Subjective Patient states she is overall feeling a little bit better today. She looks as if she is feeling better. She is complaining of some pain at the chest tube site but states the medication seems to be adequate. I encouraged her to get out of bed today as she only did get up to go to bedside commode yesterday. Objective Data Objective Data Vital Signs: Vital Signs Temp Pulse Resp BP Pulse Ox O2 Del Method O2 Flow Rate 98.3 F 76 18 115/56 L 94 Nasal Cannula 4 01/28/22 08:26 01/28/22 08:36 01/28/22 08:26 01/28/22 08:26 01/28/22 11:41 01/28/22 09:14 01/28/22 11:41 Oxygen Flow Rate (L/min) [2] 3 Oxygen Flow Rate (L/min) [1 ( 3 Initial Baseline)] Oxygen Flow Rate (L/min) 4 Oxygen Delivery Method [3] Room Air Oxygen Delivery Method [2] Nasal Cannula Oxygen Delivery Method [1 ( Nasal Cannula Initial Baseline)] Oxygen Delivery Method Nasal Cannula Weight: 62.505 kg Body Mass Index (BMI) 25.0 Intake & Output: Intake and Output for Last 24 Hours 01/26/22 01/27/22 01/28/22 23:59 23:59 23:59 Intake Total 1805 / 1805 2557 / 2557 700 / 700 Output Total 500 / 500 1450 / 1450 1025 / 1025 Balance 1305 / 1305 1107 / 1107 -325 / -325 Lab / Micro Data Result Diagrams: 01/28/22 04:26 01/28/22 04:26 Labs: Laboratory Results - last 24 hr 01/26/22 10:46: Fl Pathologist Comment Reviewed 01/27/22 04:00: Diff Path Review Reviewed 01/27/22 04:00: Free T3 pg/dL 1.2 L 01/28/22 04:26: WBC 20.3 H, RBC 3.99 L, Hgb 11.0 L, Hct 34.6 L, MCV 86.7, MCH 27.6, MCHC 31.8 L, RDW Std Deviation 48.9 H, RDW Coeff of Angelo 15.5 H, Plt Count 261, MPV 9.6, Immature Gran % (Auto) 1.300 H, Neut % (Auto) 84.4 H, Lymph % (Auto) 5.7 L, [place] % (Auto) 8.3, Eos % (Auto) 0.1, Baso % (Auto) 0.2, Absolute Neuts (auto) 17.2 H, Absolute Lymphs (auto) 1.16, Nucleated RBC % 0, Differential Comment SCANNED, Diff Path Review October01/28/22 04:26: PT 25.9 H, INR 2.4 01/28/22 04:26: Sodium 134 L, Potassium 3.7, Chloride 103, Carbon Dioxide 29.0, Anion Gap 2 L, BUN 13, Creatinine 0.76, Estim Creat Clear Calc 36.12, Est GFR (MDRD) Af Amer 95, Est GFR (MDRD) Non-Af 78, BUN/Creatinine Ratio 17.0, Glucose 109 H, Calcium 8.1 L, Phosphorus 2.5 Micro: Microbiology 01/26/22 10:46 Fluid - Thoracentesis Fluid Gram Stain - Final 01/26/22 10:46 Fluid - Thoracentesis Fluid Body Fluid Culture - Preliminary No growth-Final to follow 01/26/22 10:46 Fluid - Thoracentesis Fluid Anaerobic Culture - Preliminary No growth in 48 hours. 01/26/22 20:25 Urine Catheter - Catheter Urine Culture - Final Culture exhibits no growth. 01/26/22 06:28 Blood Culture (Wb) - Anticubital Left Blood Culture - Preliminary Pasteurella multocida 01/26/22 06:45 Blood Culture (Wb) - Anticubital Right Blood Culture - Final Gram negative cocco bacillus 01/26/22 20:25 Urine, Clean Catch Legionella Antigen - Final 01/26/22 20:25 Urine, Clean Catch Streptococcus pneumoniae Antigen (M - Final 01/26/22 12:55 Mucosa - Nasopharyngeal Respiratory Panel (PCR) - Final 01/26/22 05:45 Nasal Secretion SARS-CoV-2 & FLU Antigen (Rapid) - Final Radiography Diagnostic Testing: Radiology Impression Chest X-Ray 01/27/22 13:31 IMPRESSION: Status post right chest tube placement with improved aeration at the right lung base. Electronically Signed: Shashi Jacobo MD at 14:05 EDT , Chest X-Ray 01/28/22 07:30 IMPRESSION: Stable mild bibasilar pleural-parenchymal changes. The thoracic congestion has improved. 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[facility], patient appears as if she is feeling better since yesterday General Appearance: cooperative HEENT normocephalic, head/scalp atraumatic and hearing grossly normal bilaterally Resp normal respiratory effort, no retractions and no use of accessory muscles Resp Narrative: Remains diminished at the right base but improved aeration since chest tube placement, fluid draining from chest tube now appears to be more serous/serosanguineous, few crackles right base Auscultation: crackles; Negative for rhonchi or wheezes Cardio regular rate, regular rhythm, S1 normal heart sound, S2 normal heart sound, no murmurs, no rub, no gallops, no clicks and no JVD GI normal to inspection, nondistended, normoactive bowel sounds, soft to palpation, non-tender and non-distended Extremity Extremity Narrative: Erythema in right lower extremity completely resolved, no further edema, scratches appear to be healing well, tenderness is improved Neuro oriented x3, moves all extremities and no focal motor deficits Neuro Narrative: Marked generalized weakness Speech: speech normal Assessment & Plan Assessment/Plan (1) Pneumonia: (2) Hypoxia: (3) Pleural effusion on right: (4) Leukocytosis: (5) Hypokalemia: (6) Dehydration: (7) Bacteremia due to Gram-negative bacteria: (8) Empyema: (9) Hypophosphatemia: PLAN: Plan Acute hypoxia secondary to suspected gram-negative pneumonia -Oxygen saturations 87% on room air upon presentation -Patient increased to 5 L overnight but no documented desaturation -Wean as able -Aggressive pulmonary toilet -Pep therapy -Respiratory panel is negative -Strep pneumo and Legionella antigens are negative -Sputum culture-unable to produce -Blood cultures are showing gram-negative cocci bacillus 2 out of 2 -Patient is not O2 dependent at baseline -Pulmonary medicine is consulted following Pasteurella bacteremia -We will continue Zosyn for now until cultures are finalized -Culture from fluid after thoracentesis remains pending but no growth thus far -Consult ID for recommendations Right-sided exudative pleural effusion-suspected empyema -Patient has had history of recurrent right pleural effusions with 2 thorac enteses performed back in July -Fluid volume does not seem as high as it had been previously -Thoracentesis was performed for 200 cc and is concerning for empyema -Fluid cultures/cytology remain pending -Chest tube placed on 01/27/2022 -Pulmonary following-appreciate input Cellulitis -Resolving nicely Abnormal thyroid studies -Appears to be consistent with euthyroid sick syndrome -Would follow-up TSH in 6 weeks Hypophosphatemia -Resolved Leukocytosis -Now trending down -Continue Zosyn as ordered -ID consult in place -Continue to monitor with CBC in a.m. D-dimer elevation -INR is now therapeutic at 2.5 -CTA is negative for PE Hyponatremia -Baseline serum sodium tends to fluctuate however when she is well it appears to be normal -Stabilized Splenic/renal infarct -I suspect this is related to her subtherapeutic INR and atrial fibrillation -Patient has chronically been on Coumadin--> INR is currently therapeutic at 2.4 -Was on Xarelto in the past but states that she had adverse reactions to this -Okay to restart Coumadin but will do 3 mg daily and trend INR -Repeat INR in a.m. HFpEF-compensated -Reevaluate for the initiation of home Lasix when blood pressure and fluid status stabilizes Hypertension -Continue metoprolol/diltiazem Hyperlipidemia -Currently on no medical therapy -Follows with outpatient primary care physician PAF -Currently sinus rhythm -Continue home metoprolol and diltiazem -Continue home amiodarone -INR 2.4 -Restart Coumadin at 3 mg daily -Check daily INR GERD -Continue omeprazole DVT prophylaxis -INR therapeutic at 2.4 CODE STATUS -Full code as per discussion upon admission Charges/Coding Visit Charges Inpatient E&M: 48665 Subs Hosp L2
--- NOTE | 2022-01-28 14:38 | PCM.CONS.GEN ---
Assessment & Plan Assessment/Plan (1) Bacteremia due to Gram-negative bacteria: PLAN: Pasteurella bacteremia. Does have cats at home. On zosyn. (2) Empyema: PLAN: Empyema vs complicated pleural effusion - chest tube placed 01/27. Fluid cx neg so far. Abx as above. Unvaccinated for covid, encouraged her to get the shot but she is not interested. Will follow, thank you, d/w Dr. Garcia. HPI Consult Data Date of Consult: 01/28/22 HPI Narrative Reason for Consultation: infected effusion HPI Narrative: NIMISHA CEJA, is a 76 F with h/o afib, copd, chronic pulm effusions, presented 01/26 with one day of fever, chills, cough, R sided chest pain, dyspnea. Came to ED, admitted on vanc/zosyn, pulm and surgery consulted, chest tube placed with purulent fluid drained. Feeling much better. Had also been dealing with R ankle infected wound, treated with topical antibiotic cream at home. Has two cats but they have not been licking wound. One is a kitten name Wilder and does scratch sometimes at her skin. Full ROS performed and neg except as noted above. [facility] Medical History Atrial fibrillation Chronic anticoagulation Chronic atrial fibrillation with RVR Congestive heart failure (CHF) COPD (chronic obstructive pulmonary disease) COPD (chronic obstructive pulmonary disease) Embolic infarction Exudative pleural effusion GERD (gastroesophageal reflux disease) Goiter Hepatic congestion HLD (hyperlipidemia) HTN (hypertension) Hypertension Hypokalemia Hyponatremia Leukocytosis Marfans syndrome Non-smoker PAF (paroxysmal atrial fibrillation) Paroxysmal atrial fibrillation with RVR Pleural effusion PNA (pneumonia) Pulmonary hypertension Recurrent pleural effusion Renal cyst Renal infarction Rheumatoid arthritis Rheumatoid arthritis Splenic infarction Substance abuse Subtherapeutic international normalized ratio (INR) Home Medications omeprazole 40 mg capsule,delayed release 40 mg PO DAILY GERD 10/19/14 [History Last Taken 07/13/21] calcium carbonate 600 mg calcium (1,500 mg) tablet 600 mg PO DAILY SUPPLEMENT 06/19/19 [History Last Taken 07/12/21] multivitamin 1 tab PO DAILY SUPPLEMENT 06/19/19 [History Last Taken 07/12/21] Handicap placard #1 ea 01/07/20 [Rx Last Taken Unknown] albuterol sulfate 90 mcg/actuation aerosol inhaler 2 puff inhalation Q4H PRN SOB 01/09/20 [History Last Taken 1 Week Ago ~06/30/21] potassium chloride 20 mEq tablet,extended release(part/cryst) 20 meq PO BID SUPPLEMENT 04/26/21 [History Last Taken 07/13/21] furosemide 40 mg tablet 40 mg PO BID FLUID #180 tabs 09/16/21 [Rx Last Taken Unknown] diltiazem HCl 240 mg capsule,extended release 24 hr 240 mg PO DAILY HEART #90 caps 11/15/21 [Rx Last Taken Unknown] metoprolol tartrate 100 mg tablet 100 mg PO DAILY 12/01/21 [History Last Taken Unknown] warfarin 4 mg tablet See Rx Instructions PO .COMPLEX AFIB 12/01/21 [History Last Taken Unknown] amiodarone 200 mg tablet 100 mg PO DAILY #45 tabs 12/20/21 [Rx Last Taken Unknown] Allergy/AdvReac Type Severity Reaction Status Date / Time pneumococcal vaccine Allergy Severe Rash Verified 01/26/22 05:20 [From Prevnar 13 (PF)] Latex, Natural Rubber Allergy Rash Verified 01/26/22 05:20 rosuvastatin calcium Allergy myalgias Verified 01/26/22 05:20 [From Crestor] ibuprofen AdvReac Nausea Verified 01/26/22 05:20 Family History Mother Diabetes Colon cancer Marfan syndrome Sister Diabetes Hypertension Brother Marfan syndrome COPD (chronic obstructive pulmonary disease) Brother Marfan syndrome Father Gastric ulcer GERD (gastroesophageal reflux disease) Surgical History History of eye surgery History of hysterectomy Social History household members: spouse and children housing: house Smoking Status: Never smoker alcohol intake: never substance use type: does not use caffeine: Yes Type: coffee Number of servings: 4 Physical Exam Const alert and no apparent distress General Appearance: cooperative HEENT normocephalic and head/scalp atraumatic Eyes PERRL and EOMs intact bilaterally Neck supple and No nodes Resp normal air movement and clear to auscultation bilaterally Resp Narrative: R chest tube Cardio regular rate and regular rhythm GI soft to palpation, non-tender and non-distended Extremity General Extremity: edema Skin no rashes or lesions noted Neuro CN's II-XII intact bilaterally Lab / Micro Data Attestation: I reviewed the patient's lab results. Result Diagrams: 01/28/22 04:26 01/28/22 04:26 Labs: Laboratory Results - last 24 hr 01/26/22 10:46: Fl Pathologist Comment Reviewed 01/27/22 04:00: Diff Path Review Reviewed 01/28/22 04:26: WBC 20.3 H, RBC 3.99 L, Hgb 11.0 L, Hct 34.6 L, MCV 86.7, MCH 27.6, MCHC 31.8 L, RDW Std Deviation 48.9 H, RDW Coeff of Angelo 15.5 H, Plt Count 261, MPV 9.6, Immature Gran % (Auto) 1.300 H, Neut % (Auto) 84.4 H, Lymph % (Auto) 5.7 L, [place] % (Auto) 8.3, Eos % (Auto) 0.1, Baso % (Auto) 0.2, Absolute Neuts (auto) 17.2 H, Absolute Lymphs (auto) 1.16, Nucleated RBC % 0, Differential Comment SCANNED, Diff Path Review October foll 01/28/22 04:26: PT 25.9 H, INR 2.4 01/28/22 04:26: Sodium 134 L, Potassium 3.7, Chloride 103, Carbon Dioxide 29.0, Anion Gap 2 L, BUN 13, Creatinine 0.76, Estim Creat Clear Calc 36.12, Est GFR (MDRD) Af Amer 95, Est GFR (MDRD) Non-Af 78, BUN/Creatinine Ratio 17.0, Glucose 109 H, Calcium 8.1 L, Phosphorus 2.5 Micro: Microbiology 01/26/22 06:28 Blood Culture (Wb) - Anticubital Left Blood Culture - Final Pasteurella multocida 01/26/22 10:46 Fluid - Thoracentesis Fluid Gram Stain - Final 01/26/22 10:46 Fluid - Thoracentesis Fluid Body Fluid Culture - Preliminary No growth-Final to follow 01/26/22 10:46 Fluid - Thoracentesis Fluid Anaerobic Culture - Preliminary No growth in 48 hours. 01/26/22 20:25 Urine Catheter - Catheter Urine Culture - Final Culture exhibits no growth. 01/26/22 06:45 Blood Culture (Wb) - Anticubital Right Blood Culture - Final Gram negative cocco bacillus Radiology Impression Chest X-Ray 01/28/22 07:30 IMPRESSION: Stable mild bibasilar pleural-parenchymal changes. The thoracic congestion has improved. Electronically Signed: Shashi Jacobo MD at 8:46 EDT ,
[2022-01-28 15:17] LABS: Pathologist Review Reviewed
[2022-01-28] MEDS: Ondansetron 4 MG/2 ML Vial IV (16:27)
[2022-01-28] MEDS: 0.9% Saline Lock 10 ML Syringe IV (21:09)
[2022-01-29] VITALS (19 sets, daily range): BP systolic 108–122; BP diastolic 49–62; PULSE 64–81; RESP 16–23; TEMP 36.4–36.8; O2SAT 87–96
[2022-01-29] MEDS: Ipratropium/Albuterol Sulfate 3 ML AMPUL.NEB INHALATION ×4 (00:39→19:19)
[2022-01-29 07:51] LABS: Basophil# 0.03 X10^3/uL; Basophil% 0.2 % (0-1); Eosinophil# 0.09 X10^3/uL; Eosinophils% 0.5 % (0-5); Hematocrit 33.4 % (37-47); Hemoglobin 10.7 g/dL (12.0-15.0); Lymphocyte % 4.7 % (19-41); Mean Corpuscular Hgb 27.6 pg (27.0-32.0); Mean Corpuscular Volume 86.3 fL (81-99); Mean Platelet Vol. 9.6 fl (6.2-12.0); Monocyte# 1.88 X10^3/uL; NRBC Flagged by Analyzer 0 % (0-5); Neutrophil # 14.03 X10^3/uL (2.7-7.7); Neutrophil % 82.4 % (47-70); POSITIVE DIFFERENTIAL YES; Platelet Count 294 K/mm3 (150-450); RBC Distribution Width CV 15.3 % (11.6-14.6); RBC Distribution Width SD 48.2 fl (35.1-43.9); Red Blood Count 3.87 M/mm3 (4.2-5.4)
[2022-01-29 07:56] LABS: Differential Indicated SCAN CRITERIA MET
[2022-01-29 08:06] LABS: Anion Gap 4 (5-15); BUN 13 mg/dL (7-18); BUN/Creat Ratio 17.6 RATIO (10-20); Calcium,Total 8.2 mg/dL (8.5-10.1); Chloride 103 mmol/L (98-107); Creatinine, Serum 0.74 mg/dL (0.55-1.02); EST Glomerular Filtration Rate 81 mL/min (>60); Est Glom Filt Rate - Afr Amer 99 mL/min (>60); Estimated Creatinine Clearance 36.12 ml/min; Glucose 101 mg/dL (74-106); Potassium 4.3 mmol/L (3.5-5.1); Sodium Level 136 mmol/L (136-145)
[2022-01-29] MEDS: Acetaminophen 325 MG Tablet 650 MG PO ×2 (08:23→14:29)
[2022-01-29 08:29] LABS: International Normalized Ratio 2.8; Prothrombin Time (Protime)PT. 29.5 SECONDS (11.7-14.9)
[2022-01-29] MEDS: dilTIAZem CD 240 MG Capsule PO (09:46)
[2022-01-29] MEDS: Amiodarone 200 MG Tablet 100 MG PO (09:46)
[2022-01-29] MEDS: Metoprolol Tartrate 100 MG Tablet PO (09:47)
[2022-01-29] MEDS: guaiFENesin 1,200 MG Tablet 1200 MG PO ×2 (09:47→21:15)
[2022-01-29] MEDS: Multivitamins,Therapeutic Tablet 1 TABLET PO (09:47)
[2022-01-29] MEDS: Polyethylene Glycol 3350 17 GM PACKET PO (09:47)
[2022-01-29] MEDS: Pantoprazole Sodium 40 MG Tablet PO (09:48)
[2022-01-29] MEDS: 0.9% Saline Lock 10 ML Syringe IV ×3 (10:24→21:15)
--- NOTE | 2022-01-29 12:19 | PCM.PN.INT ---
Assessment & Plan Assessment/Plan (1) Pleural effusion on right: PLAN: Plan RECOMMENDATIONS: 1. Continue chest tube to wall suction for now. 2. Continue empiric broad-spectrum antimicrobials. 3. Continue scheduled bronchodilators. 4. Wean supplemental oxygen to maintain saturations at or above 90%. IMPRESSIONS: 1. Recurrent right-sided pleural effusion The patient presents again with a recurrent right-sided pleural effusion. Previously, the effusion was felt to be the consequence of underlying heart failure and/or pulmonary hypertension. However, the pleural fluid composition is quite different on this thoracentesis as has been in the past. The pleural fluid is now a neutrophil predominant exudate with low glucose, concerning for complicated parapneumonic effusion versus empyema. The patient's blood cultures are also positive for gram-negatives. Therefore, the patient underwent to thoracotomy on January 27. Chest imaging is stable with improvement in the pleural effusion noted. The patient's white count is improving. Plan to continue current supportive measures including antimicrobials, pending finalized culture results. Continue chest tube to wall suction for now. If no improvement in lung expansion, may need lytics (tpa dnase). 2. Heart failure with preserved ejection fraction/paroxysmal atrial fibrillation/COPD/GERD Complicates care, management, recovery and prognosis. Continue home medications as indicated. Subjective Subjective Patient states she is overall feeling a little bit better today. She looks as if she is feeling better. She is complaining of some pain at the chest tube site but states the medication seems to be adequate. Pain is minimal at this time and is controlled with tylenol. Objective Data Objective Data Vital Signs: Vital Signs Temp Pulse Resp BP Pulse Ox O2 Del Method O2 Flow Rate 36.6 C 81 18 122/51 H 94 Nasal Cannula 2 01/29/22 08:15 01/29/22 09:47 01/29/22 08:15 01/29/22 08:15 01/29/22 11:37 01/29/22 11:27 01/29/22 11:37 Oxygen Flow Rate (L/min) [2] 3 Oxygen Flow Rate (L/min) [1 ( 3 Initial Baseline)] Oxygen Flow Rate (L/min) 2 Oxygen Delivery Method [3] Room Air Oxygen Delivery Method [2] Nasal Cannula Oxygen Delivery Method [1 ( Nasal Cannula Initial Baseline)] Oxygen Delivery Method Nasal Cannula Weight: 62.505 kg Body Mass Index (BMI) 25.0 Intake & Output: Intake and Output for Last 24 Hours 01/27/22 01/28/22 01/29/22 23:59 23:59 23:59 Intake Total 2557 / 2557 1550 / 1550 100 / 100 Output Total 1450 / 1450 1645 / 1645 325 / 325 Balance 1107 / 1107 -95 / -95 -225 / -225 Lab / Micro Data Result Diagrams: 01/29/22 07:12 01/29/22 07:12 Labs: Laboratory Results - last 24 hr 01/28/22 04:26: Diff Path Review Reviewed 01/29/22 07:12: WBC 17.0 H, RBC 3.87 L, Hgb 10.7 L, Hct 33.4 L, MCV 86.3, MCH 27.6, MCHC 32.0, RDW Std Deviation 48.2 H, RDW Coeff of Angelo 15.3 H, Plt Count 294, MPV 9.6, Immature Gran % (Auto) 1.200 H, Neut % (Auto) 82.4 H, Lymph % (Auto) 4.7 L, [place] % (Auto) 11.0 H, Eos % (Auto) 0.5, Baso % (Auto) 0.2, Absolute Neuts (auto) 14.0 H, Absolute Lymphs (auto) 0.80 L, Nucleated RBC % 0, Diff Path Review May 01/29/22 07:12: PT 29.5 H, INR 2.8 01/29/22 07:12: Sodium 136, Potassium 4.3, Chloride 103, Carbon Dioxide 29.0, Anion Gap 4 L, BUN 13, Creatinine 0.74, Estim Creat Clear Calc 36.12, Est GFR (MDRD) Af Amer 99, Est GFR (MDRD) Non-Af 81, BUN/Creatinine Ratio 17.6, Glucose 101, Calcium 8.2 L Micro: Microbiology 01/26/22 10:46 Fluid - Thoracentesis Fluid Gram Stain - Final 01/26/22 10:46 Fluid - Thoracentesis Fluid Body Fluid Culture - Final No growth aerobically. 01/26/22 10:46 Fluid - Thoracentesis Fluid Anaerobic Culture - Preliminary No growth in 48 hours. 01/26/22 06:28 Blood Culture (Wb) - Anticubital Left Blood Culture - Final Pasteurella multocida 01/26/22 20:25 Urine Catheter - Catheter Urine Culture - Final Culture exhibits no growth. 01/26/22 06:45 Blood Culture (Wb) - Anticubital Right Blood Culture - Final Gram negative cocco bacillus 01/26/22 20:25 Urine, Clean Catch Legionella Antigen - Final 01/26/22 20:25 Urine, Clean Catch Streptococcus pneumoniae Antigen (M - Final 01/26/22 12:55 Mucosa - Nasopharyngeal Respiratory Panel (PCR) - Final 01/26/22 05:45 Nasal Secretion SARS-CoV-2 & FLU Antigen (Rapid) - Final Radiography Diagnostic Testing: Radiology Impression Chest X-Ray 01/27/22 13:31 IMPRESSION: Status post right chest tube placement with improved aeration at the right lung base. Electronically Signed: Shashi Jacobo MD at 14:05 EDT , Chest X-Ray 01/28/22 07:30 IMPRESSION: Stable mild bibasilar pleural-parenchymal changes. The thoracic congestion has improved. Electronically Signed: Shashi Jacobo MD at 8:46 EDT , Physical Exam Const oriented x3 General Appearance: cooperative HEENT normocephalic Mouth: oral and palatal mucosa normal Eyes PERRL Neck full ROM Lymph Lymphatic: no lymphadenopathy noted Chest inspection of chest normal Resp normal respiratory effort Percussion: dullness Cardio regular rate GI Auscultation: normoactive bowel sounds no CVA tenderness Back/Spine no CVA tenderness Neuro oriented x3 Psych cooperative Charges/Coding Visit Charges Inpatient E&M: 32933 Subs Hosp L3
--- NOTE | 2022-01-29 12:21 | PN.HOSP_ITS ---
Subjective Subjective Reports she is feeling better this morning. Significantly better since admission. Still complains of some right-sided thoracic pain related to her chest tube but states it is managed okay with the Tylenol. Is pleased that her white count is trending down. Objective Data Objective Data Vital Signs: Vital Signs Temp Pulse Resp BP Pulse Ox O2 Del Method O2 Flow Rate 98 F 81 18 122/51 H 94 Nasal Cannula 2 01/29/22 08:15 01/29/22 09:47 01/29/22 08:15 01/29/22 08:15 01/29/22 11:37 01/29/22 11:27 01/29/22 11:37 Oxygen Flow Rate (L/min) [2] 3 Oxygen Flow Rate (L/min) [1 ( 3 Initial Baseline)] Oxygen Flow Rate (L/min) 2 Oxygen Delivery Method [3] Room Air Oxygen Delivery Method [2] Nasal Cannula Oxygen Delivery Method [1 ( Nasal Cannula Initial Baseline)] Oxygen Delivery Method Nasal Cannula Weight: 62.505 kg Body Mass Index (BMI) 25.0 Intake & Output: Intake and Output for Last 24 Hours 01/27/22 01/28/22 01/29/22 23:59 23:59 23:59 Intake Total 2557 / 2557 1550 / 1550 100 / 100 Output Total 1450 / 1450 1645 / 1645 325 / 325 Balance 1107 / 1107 -95 / -95 -225 / -225 Lab / Micro Data Result Diagrams: 01/29/22 07:12 01/29/22 07:12 Labs: Laboratory Results - last 24 hr 01/28/22 04:26: Diff Path Review Reviewed 01/29/22 07:12: WBC 17.0 H, RBC 3.87 L, Hgb 10.7 L, Hct 33.4 L, MCV 86.3, MCH 27.6, MCHC 32.0, RDW Std Deviation 48.2 H, RDW Coeff of Angelo 15.3 H, Plt Count 294, MPV 9.6, Immature Gran % (Auto) 1.200 H, Neut % (Auto) 82.4 H, Lymph % (Auto) 4.7 L, [place] % (Auto) 11.0 H, Eos % (Auto) 0.5, Baso % (Auto) 0.2, Absolute Neuts (auto) 14.0 H, Absolute Lymphs (auto) 0.80 L, Nucleated RBC % 0, Diff Path Review October01/29/22 07:12: PT 29.5 H, INR 2.8 01/29/22 07:12: Sodium 136, Potassium 4.3, Chloride 103, Carbon Dioxide 29.0, Anion Gap 4 L, BUN 13, Creatinine 0.74, Estim Creat Clear Calc 36.12, Est GFR (MDRD) Af Amer 99, Est GFR (MDRD) Non-Af 81, BUN/Creatinine Ratio 17.6, Glucose 101, Calcium 8.2 L Micro: Microbiology 01/26/22 10:46 Fluid - Thoracentesis Fluid Gram Stain - Final 01/26/22 10:46 Fluid - Thoracentesis Fluid Body Fluid Culture - Final No growth aerobically. 01/26/22 10:46 Fluid - Thoracentesis Fluid Anaerobic Culture - Preliminary No growth in 48 hours. 01/26/22 06:28 Blood Culture (Wb) - Anticubital Left Blood Culture - Final Pasteurella multocida 01/26/22 20:25 Urine Catheter - Catheter Urine Culture - Final Culture exhibits no growth. 01/26/22 06:45 Blood Culture (Wb) - Anticubital Right Blood Culture - Final Gram negative cocco bacillus 01/26/22 20:25 Urine, Clean Catch Legionella Antigen - Final 01/26/22 20:25 Urine, Clean Catch Streptococcus pneumoniae Antigen (M - Final 01/26/22 12:55 Mucosa - Nasopharyngeal Respiratory Panel (PCR) - Final 01/26/22 05:45 Nasal Secretion SARS-CoV-2 & FLU Antigen (Rapid) - Final Physical Exam Const alert, oriented x3, no apparent distress and average body habitus Constitutional Narrative: Unhealthy appearing older white female sitting up in bed, nursing and aide at bedside, patient appears as if she is feeling better since yesterday General Appearance: cooperative HEENT normocephalic, head/scalp atraumatic and hearing grossly normal bilaterally HEENT Narrative: Mallampati 2, dentition is fair, no thrush Resp normal respiratory effort, no retractions and no use of accessory muscles Resp Narrative: Aeration in right base is still abnormal with a few crackles but still much improved since admission, chest tube in place and does not seem to hinder deep breathing at all, breathing is comfortable at this time and oxygen is being weaned Auscultation: crackles; Negative for rhonchi or wheezes Cardio regular rate, regular rhythm, S1 normal heart sound, S2 normal heart sound, no murmurs, no rub, no gallops, no clicks and no JVD GI normal to inspection, nondistended, normoactive bowel sounds, soft to palpation, non-tender and non-distended Extremity Extremity Narrative: Erythema in right lower extremity remains completely resolved Skin No no rashes or lesions noted, No no wounds, No skin turgor normal, no jaundice, no petechiae and no mottling Skin Narrative: Abnormal skin turgor with tenting, right lower extremity as noted above Neuro oriented x3, CN's II-XII intact bilaterally, moves all extremities and no focal motor deficits Neuro Narrative: Marked generalized weakness Speech: speech normal Psych Psych Narrative: Affect is much brighter today Assessment & Plan Assessment/Plan (1) Pneumonia: (2) Hypoxia: (3) Pleural effusion on right: (4) Leukocytosis: (5) Hypokalemia: (6) Dehydration: (7) Bacteremia due to Gram-negative bacteria: (8) Empyema: (9) Hypophosphatemia: PLAN: Plan Acute hypoxia secondary to suspected gram-negative pneumonia -Oxygen saturations 87% on room air upon presentation -Patient is now weaned to 4 L and I discussed with nursing to continue to try weaning throughout the day -Wean as able -Aggressive pulmonary toilet -Pep therapy -Respiratory panel is negative -Strep pneumo and Legionella antigens are negative -Sputum culture-unable to produce -Fluid cultures from thoracentesis are negative -Blood cultures are showing gram-negative cocci bacillus 2 out of 2 -Patient is not O2 dependent at baseline -Pulmonary medicine is consulted following Pasteurella bacteremia -Continue Zosyn -Culture from fluid after thoracentesis remains pending but no growth thus far -White count is improving -ID following-appreciate input Right-sided exudative pleural effusion-suspected empyema -Patient has had history of recurrent right pleural effusions with 2 thoracenteses performed back in July -Fluid volume does not seem as high as it had been previously -Thoracentesis was performed for 200 cc and is concerning for empyema -Cytology was negative for malignant cells with marked acute inflammation noted -Fluid cultures with no growth to date -Chest tube placed on 01/27/2022 -Pulmonary following-appreciate input Cellulitis -Resolved Abnormal thyroid studies -Appears to be consistent with euthyroid sick syndrome -Would follow-up TSH in 6 weeks Leukocytosis -Continues to improve -Continue Zosyn as ordered -ID following -Continue to monitor with CBC in a.m. D-dimer elevation -INR is 2.8 -CTA is negative for PE Hyponatremia -Resolved Splenic/renal infarct -I suspect this is related to her subtherapeutic INR and atrial fibrillation -Patient has chronically been on Coumadin--> INR is currently therapeutic at 2.8 -Was on Xarelto in the past but states that she had adverse reactions to this -Continue Coumadin at 3 mg daily and trend INR -Repeat INR in a.m. HFpEF-compensated -Restart home Lasix at 40 mg daily -Patient takes 40 mg p.o. twice daily at home Hypertension -Continue metoprolol/diltiazem Hyperlipidemia -Currently on no medical therapy -Follows with outpatient primary care physician PAF -Currently sinus rhythm -Continue home metoprolol and diltiazem -Continue home amiodarone -INR 2.8 -Restart Coumadin at 3 mg daily -Check daily INR GERD -Continue omeprazole DVT prophylaxis -INR therapeutic at 2.8 CODE STATUS -Full code as per discussion upon admission Charges/Coding Visit Charges Inpatient E&M: 96102 Subs Hosp L2
[2022-01-29] MEDS: Furosemide 40 MG Tablet PO (12:57)
--- NOTE | 2022-01-29 13:53 | PCM.PN.SRG ---
Subjective Subjective patient feels ok. tolerating chest tube in place denies breathing difficulties Objective Data Objective Data Vital Signs: Vital Signs Temp Pulse Resp BP Pulse Ox O2 Del Method O2 Flow Rate 98 F 81 18 122/51 H 94 Nasal Cannula 2 01/29/22 08:15 01/29/22 09:47 01/29/22 08:15 01/29/22 08:15 01/29/22 11:37 01/29/22 11:27 01/29/22 11:37 Oxygen Flow Rate (L/min) [2] 3 Oxygen Flow Rate (L/min) [1 ( 3 Initial Baseline)] Oxygen Flow Rate (L/min) 2 Oxygen Delivery Method [3] Room Air Oxygen Delivery Method [2] Nasal Cannula Oxygen Delivery Method [1 ( Nasal Cannula Initial Baseline)] Oxygen Delivery Method Nasal Cannula Weight: 62.505 kg Body Mass Index (BMI) 25.0 Intake & Output: Intake and Output for Last 24 Hours 01/27/22 01/28/22 01/29/22 23:59 23:59 23:59 Intake Total 2557 / 2557 1550 / 1550 100 / 100 Output Total 1450 / 1450 1645 / 1645 325 / 325 Balance 1107 / 1107 -95 / -95 -225 / -225 Lab / Micro Data Attestation: I reviewed the patient's lab results. Result Diagrams: 01/29/22 07:12 01/29/22 07:12 Labs: Laboratory Results - last 24 hr 01/28/22 04:26: Diff Path Review Reviewed 01/29/22 07:12: WBC 17.0 H, RBC 3.87 L, Hgb 10.7 L, Hct 33.4 L, MCV 86.3, MCH 27.6, MCHC 32.0, RDW Std Deviation 48.2 H, RDW Coeff of Angelo 15.3 H, Plt Count 294, MPV 9.6, Immature Gran % (Auto) 1.200 H, Neut % (Auto) 82.4 H, Lymph % (Auto) 4.7 L, [place] % (Auto) 11.0 H, Eos % (Auto) 0.5, Baso % (Auto) 0.2, Absolute Neuts (auto) 14.0 H, Absolute Lymphs (auto) 0.80 L, Nucleated RBC % 0, Diff Path Review May 01/29/22 07:12: PT 29.5 H, INR 2.8 01/29/22 07:12: Sodium 136, Potassium 4.3, Chloride 103, Carbon Dioxide 29.0, Anion Gap 4 L, BUN 13, Creatinine 0.74, Estim Creat Clear Calc 36.12, Est GFR (MDRD) Af Amer 99, Est GFR (MDRD) Non-Af 81, BUN/Creatinine Ratio 17.6, Glucose 101, Calcium 8.2 L Micro: Microbiology 01/26/22 10:46 Fluid - Thoracentesis Fluid Gram Stain - Final 01/26/22 10:46 Fluid - Thoracentesis Fluid Body Fluid Culture - Final No growth aerobically. 01/26/22 10:46 Fluid - Thoracentesis Fluid Anaerobic Culture - Preliminary No growth in 48 hours. 01/26/22 06:28 Blood Culture (Wb) - Anticubital Left Blood Culture - Final Pasteurella multocida 01/26/22 20:25 Urine Catheter - Catheter Urine Culture - Final Culture exhibits no growth. 01/26/22 06:45 Blood Culture (Wb) - Anticubital Right Blood Culture - Final Gram negative cocco bacillus 01/26/22 20:25 Urine, Clean Catch Legionella Antigen - Final 01/26/22 20:25 Urine, Clean Catch Streptococcus pneumoniae Antigen (M - Final 01/26/22 12:55 Mucosa - Nasopharyngeal Respiratory Panel (PCR) - Final 01/26/22 05:45 Nasal Secretion SARS-CoV-2 & FLU Antigen (Rapid) - Final Physical Exam Const oriented x3 and no apparent distress Resp normal respiratory effort Resp Narrative: Chest tube site - dressings intact, no seepage Chest tube output - more serous than purulent GI soft to palpation Assessment & Plan Assessment/Plan (1) Empyema: PLAN: continue chest tube drainage as per Internal medicine and Pulmonology will continue to follow
[2022-01-29] MEDS: oxyCODONE 5 MG Tablet 10 MG PO (22:33)
[2022-01-30] VITALS (14 sets, daily range): BP systolic 113–122; BP diastolic 52–64; PULSE 68–87; RESP 18–24; TEMP 36.5–36.6; O2SAT 91–97
[2022-01-30] MEDS: Ipratropium/Albuterol Sulfate 3 ML AMPUL.NEB INHALATION ×4 (01:02→19:25)
[2022-01-30] MEDS: Acetaminophen 325 MG Tablet 650 MG PO ×3 (02:10→21:09)
[2022-01-30 06:11] LABS: Absolute Lymphocyte Count 1.07 X10^3/uL (0.83-4.51); Absolute Neutrophil Count 12.7 X10^3/uL (2.0-7.7); Basophil# 0.04 X10^3/uL; Basophil% 0.2 % (0-1); Eosinophil# 0.11 X10^3/uL; Eosinophils% 0.7 % (0-5); Hematocrit 32.9 % (37-47); Hemoglobin 10.5 g/dL (12.0-15.0); Lymphocyte # 1.07 X10^3/ul (0.83-4.51); Lymphocyte % 6.5 % (19-41); Mean Corp Hgb Conc 31.9 g/dL (32-36); Mean Corpuscular Hgb 27.6 pg (27.0-32.0); Mean Corpuscular Volume 86.4 fL (81-99); Mean Platelet Vol. 9.3 fl (6.2-12.0); Monocyte# 2.34 X10^3/uL; Monocyte% 14.2 % (0-10); NRBC Flagged by Analyzer 0 % (0-5); Neutrophil # 12.68 X10^3/uL (2.7-7.7); Neutrophil % 77.1 % (47-70); POSITIVE DIFFERENTIAL YES; Platelet Count 319 K/mm3 (150-450); RBC Distribution Width CV 15.1 % (11.6-14.6); RBC Distribution Width SD 47.6 fl (35.1-43.9); Red Blood Count 3.81 M/mm3 (4.2-5.4); White Blood Count 16.5 K/mm3 (4.4-11.0)
[2022-01-30 06:19] LABS: International Normalized Ratio 2.7; Prothrombin Time (Protime)PT. 28.4 SECONDS (11.7-14.9)
[2022-01-30 06:28] LABS: Differential Indicated SCAN CRITERIA MET
[2022-01-30 06:37] LABS: Anion Gap 6 (5-15); BUN 13 mg/dL (7-18); BUN/Creat Ratio 19.8 RATIO (10-20); Chloride 100 mmol/L (98-107); Creatinine, Serum 0.66 mg/dL (0.55-1.02); EST Glomerular Filtration Rate 93 mL/min (>60); Est Glom Filt Rate - Afr Amer 113 mL/min (>60); Estimated Creatinine Clearance 36.12 ml/min; Glucose 103 mg/dL (74-106); Potassium 3.7 mmol/L (3.5-5.1); Sodium Level 134 mmol/L (136-145)
[2022-01-30 07:08] LABS: Differential Comment SCANNED
[2022-01-30] MEDS: 0.9% Saline Lock 10 ML Syringe IV ×3 (10:10→21:11)
[2022-01-30] MEDS: Pantoprazole Sodium 40 MG Tablet PO (10:12)
[2022-01-30] MEDS: Amiodarone 200 MG Tablet 100 MG PO (10:12)
[2022-01-30] MEDS: Furosemide 40 MG Tablet PO ×2 (10:12→21:09)
[2022-01-30] MEDS: guaiFENesin 1,200 MG Tablet 1200 MG PO ×2 (10:13→21:09)
[2022-01-30] MEDS: Metoprolol Tartrate 100 MG Tablet PO (10:13)
[2022-01-30] MEDS: Polyethylene Glycol 3350 17 GM PACKET PO (10:13)
[2022-01-30] MEDS: dilTIAZem CD 240 MG Capsule PO (10:13)
[2022-01-30] MEDS: Multivitamins,Therapeutic Tablet 1 TABLET PO (10:13)
--- NOTE | 2022-01-30 10:23 | CT_ITS ---
INDICATION: pleural effusion EXAMINATION: CT CHEST WITHOUT CONTRAST - CT Chest W/O Contrast Injection TECHNIQUE: Helically acquired images were obtained of the chest. A radiation dose optimization technique was used for this scan. IV Contrast dosage and agent: None. COMPARISON: 01/26/2022 FINDINGS: LUNGS, PLEURA AND LARGE AIRWAYS: There are bilateral pleural effusions associated with consolidation within the right middle and lower lobes. There is a right-sided chest tube in place. There is a small right anterior and basilar pneumothorax. There is a new right-sided chest tube in place terminating within the posterior right hemithorax. There are scattered groundglass opacities throughout the left lung. THYROID: No thyroid lesions. HEART AND PERICARDIUM: Heart size is normal. No pericardial effusion. CORONARY ARTERIES: Coronary artery calcification is seen. There is cardiomegaly. VESSELS: Thoracic aorta is not dilated. There are peripheral calcifications of the thoracic aorta. MEDIASTINUM AND ANDRE: No mediastinal or hilar adenopathy. There is fluid within the esophagus. No hiatal hernia. UPPER ABDOMEN: No acute pathology. BONES: No suspicious lytic or blastic abnormality. CT/Chest without Contrast IMPRESSION: Bilateral pleural effusions associated with dependent consolidation within the right middle and lower lobes. Small right basilar hydropneumothorax, likely secondary to recent chest tube placement. Atherosclerosis. Cardiomegaly. Fluid within the esophagus, may be secondary to reflux and/or dysmotility. Electronically Signed: Nimisha Lerma MD at 11:46 EDT ,
--- NOTE | 2022-01-30 11:12 | PN.CC_ITS ---
Assessment & Plan Assessment/Plan (1) Pleural effusion on right: PLAN: Plan RECOMMENDATIONS: 1. Continue chest tube to wall suction for now. 2. Continue empiric broad-spectrum antimicrobials. 3. Continue scheduled bronchodilators. 4. Wean supplemental oxygen to maintain saturations at or above 90%. IMPRESSIONS: 1. Recurrent right-sided pleural effusion The patient presents again with a recurrent right-sided pleural effusion. Previously, the effusion was felt to be the consequence of underlying heart failure and/or pulmonary hypertension. However, the pleural fluid composition is quite different on this thoracentesis as has been in the past. The pleural fluid is now a neutrophil predominant exudate with low glucose, concerning for complicated parapneumonic effusion versus empyema. The patient's blood cultures are also positive for gram-negatives. Therefore, the patient underwent to tube thoracostomy on January 27. Chest imaging is stable with improvement in the pleural effusion noted. The patient's white count is improving. Plan to continue current supportive measures including antimicrobials, pending finalized culture results. Continue chest tube to wall suction for now. Will obtain non contrast CT Chest today to assess for lung expansion vs entrapment If lung has not expanded despite CT drainage, will need lytics tomorrow Hold night time coumadin dose in case lytics are required 2. Heart failure with preserved ejection fraction/paroxysmal atrial fibrillation/COPD/GERD Complicates care, management, recovery and prognosis. Continue home medications as indicated. Subjective Subjective Patient states she is overall feeling a little bit better today. She was able to shower with help, breathing seems to be better. Objective Data Objective Data All objective data has been reviewed by me personally. Vital Signs: Vital Signs Temp Pulse Resp BP Pulse Ox O2 Del Method O2 Flow Rate 36.6 C 80 18 113/54 L 94 Nasal Cannula 3 01/30/22 07:28 01/30/22 10:13 01/30/22 07:28 01/30/22 07:28 01/30/22 07:29 01/30/22 07:29 01/30/22 07:29 Oxygen Flow Rate (L/min) [2] 3 Oxygen Flow Rate (L/min) [1 ( 3 Initial Baseline)] Oxygen Flow Rate (L/min) 3 Oxygen Delivery Method [3] Room Air Oxygen Delivery Method [2] Nasal Cannula Oxygen Delivery Method [1 ( Nasal Cannula Initial Baseline)] Oxygen Delivery Method Nasal Cannula Weight: 63.8 kg Body Mass Index (BMI) 25.0 Intake & Output: Intake and Output for Last 24 Hours 01/28/22 01/29/22 01/30/22 23:59 23:59 23:59 Intake Total 1550 / 1550 870 / 870 100 / 100 Output Total 1645 / 1645 365 / 765 660 / 660 Balance -95 / -95 505 / 105 -560 / -560 Lab / Micro Data Lab results narrative: All objective data has been reviewed by me personally. Result Diagrams: 01/30/22 04:50 01/30/22 04:50 Labs: Laboratory Results - last 24 hr 01/30/22 04:50: WBC 16.5 H, RBC 3.81 L, Hgb 10.5 L, Hct 32.9 L, MCV 86.4, MCH 27.6, MCHC 31.9 L, RDW Std Deviation 47.6 H, RDW Coeff of Angelo 15.1 H, Plt Count 319, MPV 9.3, Immature Gran % (Auto) 1.300 H, Neut % (Auto) 77.1 H, Lymph % (Auto) 6.5 L, [place] % (Auto) 14.2 H, Eos % (Auto) 0.7, Baso % (Auto) 0.2, Absolute Neuts (auto) 12.7 H, Absolute Lymphs (auto) 1.07, Nucleated RBC % 0, Differential Comment SCANNED, Diff Path Review October01/30/22 04:50: PT 28.4 H, INR 2.7 01/30/22 04:50: Sodium 134 L, Potassium 3.7, Chloride 100, Carbon Dioxide 28.0, Anion Gap 6, BUN 13, Creatinine 0.66, Estim Creat Clear Calc 36.12, Est GFR (MDRD) Af Amer 113, Est GFR (MDRD) Non-Af 93, BUN/Creatinine Ratio 19.8, Glucose 103, Calcium 8.0 L Micro: Microbiology 01/26/22 10:46 Fluid - Thoracentesis Fluid Gram Stain - Final 01/26/22 10:46 Fluid - Thoracentesis Fluid Body Fluid Culture - Final No growth aerobically. 01/26/22 10:46 Fluid - Thoracentesis Fluid Anaerobic Culture - Preliminary No growth in 48 hours. 01/26/22 06:28 Blood Culture (Wb) - Anticubital Left Blood Culture - Final Pasteurella multocida 01/26/22 20:25 Urine Catheter - Catheter Urine Culture - Final Culture exhibits no growth. 01/26/22 06:45 Blood Culture (Wb) - Anticubital Right Blood Culture - Final Gram negative cocco bacillus 01/26/22 20:25 Urine, Clean Catch Legionella Antigen - Final 01/26/22 20:25 Urine, Clean Catch Streptococcus pneumoniae Antigen (M - Final 01/26/22 12:55 Mucosa - Nasopharyngeal Respiratory Panel (PCR) - Final 01/26/22 05:45 Nasal Secretion SARS-CoV-2 & FLU Antigen (Rapid) - Final Physical Exam Const alert and oriented x3 General Appearance: cooperative HEENT normocephalic Eyes PERRL Neck full ROM Lymph Lymphatic: no lymphadenopathy noted Chest inspection of chest normal Chest: chest tube Resp Effort and Inspection: able to speak in complete sentences Auscultation: diminished lung sounds right Cardio regular rate GI normal to inspection, nondistended, normoactive bowel sounds no CVA tenderness Extremity no clubbing, cyanosis or edema Neuro oriented x3 Charges/Coding Visit Charges Inpatient E&M: 49486 Subs Hosp L3
--- NOTE | 2022-01-30 12:10 | PCM.PN.HOSP ---
Subjective Subjective Patient states clinically she is overall feeling better. Still having some pain on that right side related to chest tube but the pain she presented with has resolved. No complaints at this time. Patient states she slept well overnight. Objective Data Objective Data Vital Signs: Vital Signs Temp Pulse Resp BP Pulse Ox O2 Del Method O2 Flow Rate 98 F 80 18 113/54 L 94 Nasal Cannula 3 01/30/22 07:28 01/30/22 10:13 01/30/22 07:28 01/30/22 07:28 01/30/22 07:29 01/30/22 07:29 01/30/22 07:29 Oxygen Flow Rate (L/min) [2] 3 Oxygen Flow Rate (L/min) [1 ( 3 Initial Baseline)] Oxygen Flow Rate (L/min) 3 Oxygen Delivery Method [3] Room Air Oxygen Delivery Method [2] Nasal Cannula Oxygen Delivery Method [1 ( Nasal Cannula Initial Baseline)] Oxygen Delivery Method Nasal Cannula Weight: 63.8 kg Body Mass Index (BMI) 25.0 Intake & Output: Intake and Output for Last 24 Hours 01/28/22 01/29/22 01/30/22 23:59 23:59 23:59 Intake Total 1550 / 1550 870 / 870 100 / 100 Output Total 1645 / 1645 365 / 765 660 / 660 Balance -95 / -95 505 / 105 -560 / -560 Lab / Micro Data Result Diagrams: 01/30/22 04:50 01/30/22 04:50 Labs: Laboratory Results - last 24 hr 01/30/22 04:50: WBC 16.5 H, RBC 3.81 L, Hgb 10.5 L, Hct 32.9 L, MCV 86.4, MCH 27.6, MCHC 31.9 L, RDW Std Deviation 47.6 H, RDW Coeff of Angelo 15.1 H, Plt Count 319, MPV 9.3, Immature Gran % (Auto) 1.300 H, Neut % (Auto) 77.1 H, Lymph % (Auto) 6.5 L, [place] % (Auto) 14.2 H, Eos % (Auto) 0.7, Baso % (Auto) 0.2, Absolute Neuts (auto) 12.7 H, Absolute Lymphs (auto) 1.07, Nucleated RBC % 0, Differential Comment SCANNED, Diff Path Review October01/30/22 04:50: PT 28.4 H, INR 2.7 01/30/22 04:50: Sodium 134 L, Potassium 3.7, Chloride 100, Carbon Dioxide 28.0, Anion Gap 6, BUN 13, Creatinine 0.66, Estim Creat Clear Calc 36.12, Est GFR (MDRD) Af Amer 113, Est GFR (MDRD) Non-Af 93, BUN/Creatinine Ratio 19.8, Glucose 103, Calcium 8.0 L Micro: Microbiology 01/26/22 10:46 Fluid - Thoracentesis Fluid Gram Stain - Final 01/26/22 10:46 Fluid - Thoracentesis Fluid Body Fluid Culture - Final No growth aerobically. 01/26/22 10:46 Fluid - Thoracentesis Fluid Anaerobic Culture - Preliminary No growth in 48 hours. 01/26/22 06:28 Blood Culture (Wb) - Anticubital Left Blood Culture - Final Pasteurella multocida 01/26/22 20:25 Urine Catheter - Catheter Urine Culture - Final Culture exhibits no growth. 01/26/22 06:45 Blood Culture (Wb) - Anticubital Right Blood Culture - Final Gram negative cocco bacillus 01/26/22 20:25 Urine, Clean Catch Legionella Antigen - Final 01/26/22 20:25 Urine, Clean Catch Streptococcus pneumoniae Antigen (M - Final 01/26/22 12:55 Mucosa - Nasopharyngeal Respiratory Panel (PCR) - Final 01/26/22 05:45 Nasal Secretion SARS-CoV-2 & FLU Antigen (Rapid) - Final Radiography Diagnostic Testing: Radiology Impression Chest CT 01/30/22 10:23 IMPRESSION: Bilateral pleural effusions associated with dependent consolidation within the right middle and lower lobes. Small right basilar hydropneumothorax, likely secondary to recent chest tube placement. Atherosclerosis. Cardiomegaly. Fluid within the esophagus, may be secondary to reflux and/or dysmotility. Electronically Signed: Nimisha Lerma MD at 11:46 EDT , Physical Exam Const alert, oriented x3, no apparent distress and average body habitus Constitutional Narrative: older white female sitting up in bed, very pleasant, patient appears comfortable and nontoxic, watching television eating breakfast General Appearance: cooperative HEENT normocephalic, head/scalp atraumatic and hearing grossly normal bilaterally HEENT Narrative: Dentition is fair, Mallampati 2, no thrush Resp normal respiratory effort, no retractions and no use of accessory muscles Resp Narrative: Significantly improved aeration in right base is still abnormal with a few crackles but still much improved since admission, chest tube in place and does not seem to hinder deep breathing at all, breathing is comfortable at this time and oxygen is being weaned Auscultation: crackles; Negative for rhonchi or wheezes Cardio regular rate, regular rhythm, S1 normal heart sound, S2 normal heart sound, no murmurs, no rub, no gallops, no clicks and no JVD GI normal to inspection, nondistended, normoactive bowel sounds, soft to palpation, non-tender and non-distended Extremity Extremity Narrative: Erythema in right lower extremity remains completely resolved, no edema, cyanosis or clubbing Neuro oriented x3, moves all extremities and no focal motor deficits Neuro Narrative: Marked generalized weakness Speech: speech normal Assessment & Plan Assessment/Plan (1) Pneumonia: (2) Hypoxia: (3) Pleural effusion on right: (4) Leukocytosis: (5) Hypokalemia: (6) Dehydration: (7) Bacteremia due to Gram-negative bacteria: (8) Empyema: (9) Hypophosphatemia: PLAN: Plan Acute hypoxia secondary to suspected gram-negative pneumonia -Oxygen saturations 87% on room air upon presentation -Patient is now weaned to 3 L but does desat require more with exertion -Wean as able -Aggressive pulmonary toilet -Pep therapy -Respiratory panel is negative -Strep pneumo and Legionella antigens are negative -Sputum culture-unable to produce -Fluid cultures from thoracentesis are negative -Patient is not O2 dependent at baseline -Pulmonary medicine is consulted following Pasteurella bacteremia -Continue Zosyn -Thoracentesis fluid cultures no growth to date -White count is improving slowly -ID following-appreciate input Right-sided exudative pleural effusion-suspected empyema -Patient has had history of recurrent right pleural effusions with 2 thoracenteses performed back in July -Thoracentesis was performed for 200 cc and is concerning for empyema -Cytology was negative for malignant cells with marked acute inflammation noted -Fluid cultures with no growth to date -Chest tube placed on 01/27/2022--> repeat CT chest to assess for lung expansion versus entrapment if lung has not expanded despite CT drainage will need lytics -Coumadin held today in case procedure needed tomorrow -Pulmonary following-appreciate input Cellulitis -Resolved Abnormal thyroid studies -Appears to be consistent with euthyroid sick syndrome -Would follow-up TSH in 6 weeks Leukocytosis -Slowly trending down -Continue Zosyn as ordered -ID following -Continue to monitor with CBC in a.m. D-dimer elevation -INR is 2.7 -CTA is negative for PE Splenic/renal infarct -I suspect this is related to her subtherapeutic INR and atrial fibrillation -Patient has chronically been on Coumadin--> INR is currently therapeutic at 2.8 -Was on Xarelto in the past but states that she had adverse reactions to this -Continue Coumadin at 3 mg daily and trend INR -Repeat INR in a.m. HFpEF-compensated -Lasix increased to home dosing at 40 mg p.o. twice daily Hypertension -Continue metoprolol/diltiazem Hyperlipidemia -Currently on no medical therapy -Follows with outpatient primary care physician PAF -Remains in normal sinus rhythm -Continue home metoprolol and diltiazem -Continue home amiodarone -INR 2.7 -Coumadin on hold for possible procedure tomorrow we will await input from pulmonology -Check daily INR GERD -Continue omeprazole DVT prophylaxis -INR therapeutic at 2.7 CODE STATUS -Full code as per discussion upon admission Charges/Coding Visit Charges Inpatient E&M: 73875 Subs Hosp L2
--- NOTE | 2022-01-30 19:14 | PCM.PN.SRG ---
Subjective Subjective patient complaint of right sided chest pain due to chest tube, but tolerating this Objective Data Objective Data Vital Signs: Vital Signs Temp Pulse Resp BP Pulse Ox O2 Del Method O2 Flow Rate 98 F 69 24 H 113/52 L 94 Nasal Cannula 3 01/30/22 13:14 01/30/22 13:46 01/30/22 13:46 01/30/22 13:14 01/30/22 18:37 01/30/22 18:37 01/30/22 18:37 Oxygen Flow Rate (L/min) [2] 3 Oxygen Flow Rate (L/min) [1 ( 3 Initial Baseline)] Oxygen Flow Rate (L/min) 3 Oxygen Delivery Method [3] Room Air Oxygen Delivery Method [2] Nasal Cannula Oxygen Delivery Method [1 ( Nasal Cannula Initial Baseline)] Oxygen Delivery Method Nasal Cannula Weight: 63.8 kg Body Mass Index (BMI) 25.0 Intake & Output: Intake and Output for Last 24 Hours 01/28/22 01/29/22 01/30/22 23:59 23:59 23:59 Intake Total 1550 / 1550 870 / 870 150 / 150 Output Total 1645 / 1645 365 / 765 690 / 690 Balance -95 / -95 505 / 105 -540 / -540 Lab / Micro Data Attestation: I reviewed the patient's lab results. Result Diagrams: 01/30/22 04:50 01/30/22 04:50 Labs: Laboratory Results - last 24 hr 01/30/22 04:50: WBC 16.5 H, RBC 3.81 L, Hgb 10.5 L, Hct 32.9 L, MCV 86.4, MCH 27.6, MCHC 31.9 L, RDW Std Deviation 47.6 H, RDW Coeff of Angelo 15.1 H, Plt Count 319, MPV 9.3, Immature Gran % (Auto) 1.300 H, Neut % (Auto) 77.1 H, Lymph % (Auto) 6.5 L, [place] % (Auto) 14.2 H, Eos % (Auto) 0.7, Baso % (Auto) 0.2, Absolute Neuts (auto) 12.7 H, Absolute Lymphs (auto) 1.07, Nucleated RBC % 0, Differential Comment SCANNED, Diff Path Review October01/30/22 04:50: PT 28.4 H, INR 2.7 01/30/22 04:50: Sodium 134 L, Potassium 3.7, Chloride 100, Carbon Dioxide 28.0, Anion Gap 6, BUN 13, Creatinine 0.66, Estim Creat Clear Calc 36.12, Est GFR (MDRD) Af Amer 113, Est GFR (MDRD) Non-Af 93, BUN/Creatinine Ratio 19.8, Glucose 103, Calcium 8.0 L Micro: Microbiology 01/26/22 10:46 Fluid - Thoracentesis Fluid Gram Stain - Final 01/26/22 10:46 Fluid - Thoracentesis Fluid Body Fluid Culture - Final No growth aerobically. 01/26/22 10:46 Fluid - Thoracentesis Fluid Anaerobic Culture - Preliminary No growth in 48 hours. 01/26/22 06:28 Blood Culture (Wb) - Anticubital Left Blood Culture - Final Pasteurella multocida 01/26/22 20:25 Urine Catheter - Catheter Urine Culture - Final Culture exhibits no growth. 01/26/22 06:45 Blood Culture (Wb) - Anticubital Right Blood Culture - Final Gram negative cocco bacillus 01/26/22 20:25 Urine, Clean Catch Legionella Antigen - Final 01/26/22 20:25 Urine, Clean Catch Streptococcus pneumoniae Antigen (M - Final 01/26/22 12:55 Mucosa - Nasopharyngeal Respiratory Panel (PCR) - Final 01/26/22 05:45 Nasal Secretion SARS-CoV-2 & FLU Antigen (Rapid) - Final Radiography Diagnostic Testing: Radiology Impression Chest CT 01/30/22 10:23 IMPRESSION: Bilateral pleural effusions associated with dependent consolidation within the right middle and lower lobes. Small right basilar hydropneumothorax, likely secondary to recent chest tube placement. Atherosclerosis. Cardiomegaly. Fluid within the esophagus, may be secondary to reflux and/or dysmotility. Electronically Signed: Nimisha Lerma MD at 11:46 EDT , Physical Exam Const oriented x3 and no apparent distress Resp normal respiratory effort Cardio regular rate GI normal to inspection, nondistended, normoactive bowel sounds Assessment & Plan Assessment/Plan (1) Empyema: PLAN: patient to continue with chest tube to suction as per Internal medicine/Pulmonology recommendations
[2022-01-31] VITALS (7 sets, daily range): BP systolic 106–127; BP diastolic 54–67; PULSE 71–95; RESP 16–28; TEMP 36.6–37; O2SAT 86–95
[2022-01-31 04:25] LABS: Absolute Lymphocyte Count 1.22 X10^3/uL (0.83-4.51); Absolute Neutrophil Count 10.5 X10^3/uL (2.0-7.7); Basophil# 0.07 X10^3/uL; Basophil% 0.5 % (0-1); Eosinophil# 0.24 X10^3/uL; Eosinophils% 1.7 % (0-5); Hematocrit 32.7 % (37-47); Hemoglobin 10.6 g/dL (12.0-15.0); Lymphocyte # 1.22 X10^3/ul (0.83-4.51); Lymphocyte % 8.4 % (19-41); Mean Corp Hgb Conc 32.4 g/dL (32-36); Mean Corpuscular Hgb 27.9 pg (27.0-32.0); Mean Corpuscular Volume 86.1 fL (81-99); Mean Platelet Vol. 9.1 fl (6.2-12.0); Monocyte# 2.03 X10^3/uL; Monocyte% 14.1 % (0-10); NRBC Flagged by Analyzer 0 % (0-5); Neutrophil # 10.53 X10^3/uL (2.7-7.7); Neutrophil % 72.9 % (47-70); POSITIVE DIFFERENTIAL YES; Platelet Count 353 K/mm3 (150-450); RBC Distribution Width SD 47.5 fl (35.1-43.9); White Blood Count 14.4 K/mm3 (4.4-11.0)
[2022-01-31 04:26] LABS: Differential Indicated SCAN CRITERIA MET
[2022-01-31 04:38] LABS: International Normalized Ratio 2.5; Prothrombin Time (Protime)PT. 26.9 SECONDS (11.7-14.9)
[2022-01-31 04:42] LABS: Anion Gap 6 (5-15); BUN 14 mg/dL (7-18); BUN/Creat Ratio 22.9 RATIO (10-20); Calcium,Total 7.8 mg/dL (8.5-10.1); Chloride 101 mmol/L (98-107); Creatinine, Serum 0.61 mg/dL (0.55-1.02); EST Glomerular Filtration Rate 101 mL/min (>60); Est Glom Filt Rate - Afr Amer 122 mL/min (>60); Estimated Creatinine Clearance 36.12 ml/min; Glucose 103 mg/dL (74-106); Potassium 3.6 mmol/L (3.5-5.1); Sodium Level 137 mmol/L (136-145)
[2022-01-31 04:45] LABS: Anisocytosis 1+
[2022-01-31] MEDS: Ipratropium/Albuterol Sulfate 3 ML AMPUL.NEB INHALATION (07:28)
--- NOTE | 2022-01-31 08:17 | PN.SURG_ITS ---
Subjective Subjective Patient's pain controlled from the chest tube with pain meds. Chest tube had minimal serous drainage overnight. Patient CT chest still did show an undrained collection. Patient's white blood cell count is improving. Objective Data Objective Data Vital Signs: Vital Signs Temp Pulse Resp BP Pulse Ox O2 Del Method O2 Flow Rate 97.8 F 89 28 H 106/55 L 93 Nasal Cannula 3 01/31/22 02:10 01/31/22 07:31 01/31/22 07:31 01/31/22 02:10 01/31/22 07:31 01/31/22 07:31 01/31/22 07:31 Oxygen Flow Rate (L/min) [2] 3 Oxygen Flow Rate (L/min) [1 ( 3 Initial Baseline)] Oxygen Flow Rate (L/min) 3 Oxygen Delivery Method [3] Room Air Oxygen Delivery Method [2] Nasal Cannula Oxygen Delivery Method [1 ( Nasal Cannula Initial Baseline)] Oxygen Delivery Method Nasal Cannula Weight: 138 lb 0.15 oz Body Mass Index (BMI) 25.0 Intake & Output: Intake and Output for Last 24 Hours 01/29/22 01/30/22 01/31/22 23:59 23:59 23:59 Intake Total 870 / 870 150 / 150 50 / 50 Output Total 365 / 765 690 / 690 612 / 612 Balance 505 / 105 -540 / -540 -562 / -562 Lab / Micro Data Result Diagrams: 01/31/22 04:06 01/31/22 04:06 Labs: Laboratory Results - last 24 hr 01/31/22 04:06: WBC 14.4 H, RBC 3.80 L, Hgb 10.6 L, Hct 32.7 L, MCV 86.1, MCH 27.9, MCHC 32.4, RDW Std Deviation 47.5 H, RDW Coeff of Angelo 15.0 H, Plt Count 353, MPV 9.1, Immature Gran % (Auto) 2.400 H, Neut % (Auto) 72.9 H, Lymph % ( Auto) 8.4 L, [place] % (Auto) 14.1 H, Eos % (Auto) 1.7, Baso % (Auto) 0.5, Absolute Neuts (auto) 10.5 H, Absolute Lymphs (auto) 1.22, Nucleated RBC % 0, Diff Path Review May foll, Anisocytosis 1+ 01/31/22 04:06: PT 26.9 H, INR 2.5 01/31/22 04:06: Sodium 137, Potassium 3.6, Chloride 101, Carbon Dioxide 30.0, Anion Gap 6, BUN 14, Creatinine 0.61, Estim Creat Clear Calc 36.12, Est GFR (MDRD) Af Amer 122, Est GFR (MDRD) Non-Af 101, BUN/Creatinine Ratio 22.9 H, Glucose 103, Calcium 7.8 L Micro: Microbiology 01/26/22 10:46 Fluid - Thoracentesis Fluid Gram Stain - Final 01/26/22 10:46 Fluid - Thoracentesis Fluid Body Fluid Culture - Final No growth aerobically. 01/26/22 10:46 Fluid - Thoracentesis Fluid Anaerobic Culture - Preliminary No growth in 48 hours. 01/26/22 06:28 Blood Culture (Wb) - Anticubital Left Blood Culture - Final Pasteurella multocida 01/26/22 20:25 Urine Catheter - Catheter Urine Culture - Final Culture exhibits no growth. 01/26/22 06:45 Blood Culture (Wb) - Anticubital Right Blood Culture - Final Gram negative cocco bacillus 01/26/22 20:25 Urine, Clean Catch Legionella Antigen - Final 01/26/22 20:25 Urine, Clean Catch Streptococcus pneumoniae Antigen (M - Final 01/26/22 12:55 Mucosa - Nasopharyngeal Respiratory Panel (PCR) - Final 01/26/22 05:45 Nasal Secretion SARS-CoV-2 & FLU Antigen (Rapid) - Final Radiography Diagnostic Testing: Radiology Impression Chest CT 01/30/22 10:23 IMPRESSION: Bilateral pleural effusions associated with dependent consolidation within the right middle and lower lobes. Small right basilar hydropneumothorax, likely secondary to recent chest tube placement. Atherosclerosis. Cardiomegaly. Fluid within the esophagus, may be secondary to reflux and/or dysmotility. Electronically Signed: Nimisha Lerma MD at 11:46 EDT , Physical Exam Const oriented x3 and no apparent distress Resp Resp Narrative: Right chest tube in place -20 Pleur-evac draining serous Assessment & Plan Assessment/Plan (1) Pleural effusion on right: (2) Bacteremia due to Gram-negative bacteria: (3) Pneumonia: PLAN: Plan Continue right chest tube to -[address] chest was done yesterday there is still area of undrained per my read, discussed with pulmonary patient could possibly need transfer for tPA/lytics. Addendum: We will plan for transfer to a facility with thoracic surgery. Fatimah Mcclain M.D. Pager: [phone] [facility] [address] [place] [address], [facility], [address] [place] [address] Office: [phone] Charges/Coding Visit Charges Inpatient E&M: 60109 Subs Hosp L2
--- NOTE | 2022-01-31 08:33 | PN.CC_ITS ---
Assessment & Plan Assessment/Plan (1) Pleural effusion on right: PLAN: Plan RECOMMENDATIONS: 1. Continue chest tube to wall suction for now. 2. Continue empiric broad-spectrum antimicrobials. 3. Continue scheduled bronchodilators. 4. Wean supplemental oxygen to maintain saturations at or above 90%. 5. May require transfer to a tertiary center for chest tube lytics IMPRESSIONS: 1. Recurrent right-sided pleural effusion The patient presents again with a recurrent right-sided pleural effusion. Previously, the effusion was felt to be the consequence of underlying heart failure and/or pulmonary hypertension. However, the pleural fluid composition is quite different on this thoracentesis as has been in the past. The pleural fluid is now a neutrophil predominant exudate with low glucose, concerning for complicated parapneumonic effusion versus empyema. The patient's blood cultures are also positive for Pasteurella. Therefore, the patient underwent to thoracotomy on January 27. Chest imaging is stable with improvement in the pleural effusion noted. The patient's white count is improving. Plan to con tinue current supportive measures including antimicrobials, pending finalized culture results. Continue chest tube to wall suction for now. Patient appears to have a loculated portion on recent CT scan of the chest. Doubt surgery will be comfortable with using lytic therapy without CT surgery backup. May require transfer to a tertiary center. 2. Heart failure with preserved ejection fraction/paroxysmal atrial fibrillation/COPD/GERD Complicates care, management, recovery and prognosis. Continue home medications as indicated. This note was generated with [employer] dictation software. It may contain incorrect words, spelling, and punctuation that were not noted in checking the note before signing. Subjective Subjective Patient did okay overnight. No acute issues were reported. Patient overall feels subjectively unchanged compared to yesterday. Patient does report chest discomfort, but only with moving around. Patient was able to tolerate therapy this morning. Objective Data Objective Data Vital Signs: Vital Signs Temp Pulse Resp BP Pulse Ox O2 Del Method O2 Flow Rate 36.6 C 89 28 H 106/55 L 93 Nasal Cannula 3 01/31/22 02:10 01/31/22 07:31 01/31/22 07:31 01/31/22 02:10 01/31/22 07:31 01/31/22 07:31 01/31/22 07:31 Oxygen Flow Rate (L/min) [2] 3 Oxygen Flow Rate (L/min) [1 ( 3 Initial Baseline)] Oxygen Flow Rate (L/min) 3 Oxygen Delivery Method [3] Room Air Oxygen Delivery Method [2] Nasal Cannula Oxygen Delivery Method [1 ( Nasal Cannula Initial Baseline)] Oxygen Delivery Method Nasal Cannula Weight: 62.6 kg Body Mass Index (BMI) 25.0 Intake & Output: Intake and Output for Last 24 Hours 01/29/22 01/30/22 01/31/22 23:59 23:59 23:59 Intake Total 870 / 870 150 / 150 50 / 50 Output Total 365 / 765 690 / 690 612 / 612 Balance 505 / 105 -540 / -540 -562 / -562 Lab / Micro Data Attestation: I reviewed the patient's lab results. Result Diagrams: 01/31/22 04:06 01/31/22 04:06 Labs: Laboratory Results - last 24 hr 01/31/22 04:06: WBC 14.4 H, RBC 3.80 L, Hgb 10.6 L, Hct 32.7 L, MCV 86.1, MCH 2 7.9, MCHC 32.4, RDW Std Deviation 47.5 H, RDW Coeff of Angelo 15.0 H, Plt Count 353, MPV 9.1, Immature Gran % (Auto) 2.400 H, Neut % (Auto) 72.9 H, Lymph % (Auto) 8.4 L, [place] % (Auto) 14.1 H, Eos % (Auto) 1.7, Baso % (Auto) 0.5, Absolute Neuts (auto) 10.5 H, Absolute Lymphs (auto) 1.22, Nucleated RBC % 0, Diff Path Review May foll, Anisocytosis 1+ 01/31/22 04:06: PT 26.9 H, INR 2.5 01/31/22 04:06: Sodium 137, Potassium 3.6, Chloride 101, Carbon Dioxide 30.0, Anion Gap 6, BUN 14, Creatinine 0.61, Estim Creat Clear Calc 36.12, Est GFR (MDRD) Af Amer 122, Est GFR (MDRD) Non-Af 101, BUN/Creatinine Ratio 22.9 H, Glucose 103, Calcium 7.8 L Micro: Microbiology 01/26/22 10:46 Fluid - Thoracentesis Fluid Gram Stain - Final 01/26/22 10:46 Fluid - Thoracentesis Fluid Body Fluid Culture - Final No growth aerobically. 01/26/22 10:46 Fluid - Thoracentesis Fluid Anaerobic Culture - Preliminary No growth in 48 hours. 01/26/22 06:28 Blood Culture (Wb) - Anticubital Left Blood Culture - Final Pasteurella multocida 01/26/22 20:25 Urine Catheter - Catheter Urine Culture - Final Culture exhibits no growth. 01/26/22 06:45 Blood Culture (Wb) - Anticubital Right Blood Culture - Final Gram negative cocco bacillus 01/26/22 20:25 Urine, Clean Catch Legionella Antigen - Final 01/26/22 20:25 Urine, Clean Catch Streptococcus pneumoniae Antigen (M - Final 01/26/22 12:55 Mucosa - Nasopharyngeal Respiratory Panel (PCR) - Final 01/26/22 05:45 Nasal Secretion SARS-CoV-2 & FLU Antigen (Rapid) - Final Radiography Diagnostic Testing: Radiology Impression Chest CT 01/30/22 10:23 IMPRESSION: Bilateral pleural effusions associated with dependent consolidation within the right middle and lower lobes. Small right basilar hydropneumothorax, likely secondary to recent chest tube placement. Atherosclerosis. Cardiomegaly. Fluid within the esophagus, may be secondary to reflux and/or dysmotility. Electronically Signed: Nimisha Lerma MD at 11:46 EDT , Physical Exam Const alert, oriented x3 and no apparent distress General Appearance: cooperative HEENT normocephalic, head/scalp atraumatic and moist oral mucous membranes Eyes PERRL, EOMs intact bilaterally and conjunctivae normal Neck supple General: trachea midline Chest inspection of chest normal Chest Narrative: Mild air leak noted in Pleur-evac. No significant subcutaneous emphysema noted. Chest: chest tube right Resp normal respiratory effort Auscultation: rales right base and diminished lung sounds Cardio regular rate, regular rhythm, S1 normal heart sound, S2 normal heart sound and no murmurs GI normal to inspection, nondistended, normoactive bowel sounds Extremity no clubbing, cyanosis or edema Skin no rashes or lesions noted Neuro CN's II-XII intact bilaterally, moves all extremities and no focal motor deficits Psych cooperative and affect normal Charges/Coding Visit Charges Inpatient E&M: 40470 Subs Hosp L2
--- NOTE | 2022-01-31 09:19 | CASEMGMT ---
According to [facility] website, the following tertiary facilities are in network: [facility], [facility], [place], [facility], [facility], [facility] and .
[2022-01-31] MEDS: Acetaminophen 325 MG Tablet 650 MG PO ×2 (09:28→16:57)
[2022-01-31] MEDS: Metoprolol Tartrate 100 MG Tablet PO (09:30)
[2022-01-31] MEDS: dilTIAZem CD 240 MG Capsule PO (09:30)
[2022-01-31] MEDS: Pantoprazole Sodium 40 MG Tablet PO (09:30)
[2022-01-31] MEDS: Furosemide 40 MG Tablet PO (09:31)
[2022-01-31] MEDS: Amiodarone 200 MG Tablet 100 MG PO (09:31)
[2022-01-31] MEDS: Multivitamins,Therapeutic Tablet 1 TABLET PO (09:31)
[2022-01-31] MEDS: guaiFENesin 1,200 MG Tablet 1200 MG PO (09:32)
[2022-01-31] MEDS: Polyethylene Glycol 3350 17 GM PACKET PO (09:32)
--- NOTE | 2022-01-31 12:15 | PCM.PN.ID ---
Physical Exam Narrative Feeling a little better, still some cough and dyspnea. Chest tube in place. No fever, no n/v/d. Const alert and no apparent distress Resp Auscultation: diminished lung sounds Cardio regular rate and regular rhythm GI soft to palpation, non-tender and non-distended Skin no rashes or lesions noted ID ID: Route of nutrition/ use of supplements: [] Nutritional Intake: [] IV Site: [] Calvo Catheter: [] Assessment & Plan Assessment/Plan (1) Bacteremia due to Gram-negative bacteria: PLAN: Pasteurella bacteremia. Does have cats at home. On zosyn. (2) Empyema: PLAN: Empyema vs complicated pleural effusion - chest tube placed 01/27. Fluid cx neg aerobic and anaerobic, was not sent for fungal or AFB. Abx as above. Wbc improving. Possible transfer planned for thoracic surgery eval. Unvaccinated for covid, encouraged her to get the shot but she is not interested. Will follow
--- NOTE | 2022-01-31 13:08 | DS.PCM_ITS ---
Providers Date of Admission: 01/26/22 Primary Care Physician: Dr. Wes Magallon MD Consultations 01/27/22 08:18 Consult: Fry Cook / Pulmonary Medicine Routine Consulting Provider: [facility] Reason for Consult: Exudative effusion EMERGENT Consult: No Notified: Yes Date Notified: 01/27/22 Time Notified: 08:18 Method of Notification: Verbal 01/27/22 12:13 Consult: General Surgery Routine Consulting Provider: Fatimah Mcclain Reason for Consult: R sided Chest tube for suspected empyema EMERGENT Consult: No Notified: Yes Date Notified: 01/27/22 Time Notified: 12:13 Method of Notification: Verbal 01/28/22 13:07 Consult: Infectious Disease Routine Consulting Provider: Abimael Banks Reason for Consult: Pasturella bacteremia/empyema EMERGENT Consult: No Notified: Yes Date Notified: 01/28/22 Time Notified: 13:08 Method of Notification: Text Reason For Visit: PNEUMONIA Diagnosis Discharge Diagnosis (1) Bacteremia due to Gram-negative bacteria: Status: Acute Code(s): R78.81 - Bacteremia (2) Empyema: Status: Acute Code(s): J86.9 - Pyothorax without fistula Medications at Discharge Home Medications omeprazole 40 mg capsule,delayed release 40 mg PO DAILY GERD 10/19/14 calcium carbonate 600 mg calcium (1,500 mg) tablet 600 mg PO DAILY SUPPLEMENT 06/19/19 multivitamin 1 tab PO DAILY SUPPLEMENT 06/19/19 Handicap placard #1 ea 01/07/20 albuterol sulfate 90 mcg/actuation aerosol inhaler 2 puff inhalation Q4H PRN SOB 01/09/20 potassium chloride 20 mEq tablet,extended release(part/cryst) 20 meq PO BID SUPPLEMENT 04/26/21 furosemide 40 mg tablet 40 mg PO BID FLUID #180 tabs 09/16/21 diltiazem HCl 240 mg capsule,extended release 24 hr 240 mg PO DAILY HEART #90 caps 11/15/21 metoprolol tartrate 100 mg tablet 100 mg PO DAILY 12/01/21 warfarin 4 mg tablet See Rx Instructions PO .COMPLEX AFIB 12/01/21 amiodarone 200 mg tablet 100 mg PO DAILY #45 tabs 12/20/21 Hospital Course Operations None Procedures Thoracentesis Summary of Care Provided Minutes Spent on Discharge: 45 Hospital Course: Per HPI: NIMISHA CEJA, is a 76 F who presented to the emergency department [facility] on 01/26/2022 with right-sided chest pain that began last evening and associated shortness of breath its been progressively getting worse.? The patient reports that she has had about 24 to 48 hours of shortness of breath that has been worsening and that her chest pain started last evening.? The pain is stabbing in nature and on the right side.? She reports it to be pleuritic in nature and nothing makes it better.? She complains of subjective chills but denies any documented fevers.? She has had an intermittent cough that was initially productive of some clear sputum but is now nonproductive and improved.? She is had no nausea or vomiting, constipation or diarrhea, no tingling numbness or focal weakness.? She does complain of some generalized weakness.? She is had no recent hospitalizations since July of this past yea r and had been doing quite well up until the last 24 to 48 hours. Vital signs on presentation the emergency department showed a temperature of 98 degrees, heart rate 81, blood pressure 142/61, respiratory rate was initially 30-34 and oxygen saturation was 87% on room air.? CBC shows a leukocytosis of 24 2 with a significant left shift at 87.5% neutrophilia.? Coags were obtained and INR was found to be 1.7.? She is chronically on Coumadin for atrial fibrillation.? Her D-dimer was elevated 1.53 and a CTA was performed and was negative for pulmonary embolism however did show a right lower lobe infiltrate as well as compressive atelectasis and a right pleural effusion.? Chemistry panel showed hyponatremia with a sodium of 132, hypokalemia with a potassium of 3.4 her renal function was slightly elevated above baseline with a BUN of 19 and a serum creatinine 1.18.? Lactic acid was 1.1.? Liver functions are unremarkable.? Initial troponin was 10. In the emergency department she was given 1 L IV fluids and started on empiric antibiotics. Hospital Course: 1. Acute hypoxic respiratory failure secondary to a gram-negative esa pneumonia as well as a pleural effusion with possible empyema/cellulitis?76-year-old female presented to the hospital with shortness of breath and right-sided chest pain. She was found to have a pleural effusion as well as a right-sided pneumonia. She was started on broad-spectrum antibiotics and had a thoracentesis which demonstrated an exudative effusion with a white count of 19,000 on the fluid sample. Culture was negative at that time. Surgery was consulted chest tube was placed however we have not had complete resolution of her effusion and per pulmonology, it does appear to be an empyema at this time and they recommend transfer to tertiary care center for possible lytic therapy versus operative intervention. She was excepted in transfer to [facility] and plan will be for discharge today. Cellulitis has resolved and appreciate infectious disease assistance. She also did have a Pasteurella bacteremia and her white count is improving with Zosyn. 2. Chronic diastolic CHF, hypertension, hyperlipidemia, paroxysmal A. fib, recent splenic infarct, GERD are all chronic medical can complicate her care. Her home medications were continued where appropriate. She was recently diagnosed with healing splenic infarct and it was felt to be due to subtherapeutic dosing on her Coumadin. Her INR today on discharge is 2.5. Plan will be to continue her home amiodarone, Cardizem, Lasix, metoprolol, PPI on discharge. Physical Exam Narrative General: Alert, Oriented x3, Cooperative, No apparent distress HEENT: Atraumatic, PERRLA, EOMI, Normocephalic Oral: Moist Mucosa Neck: Supple, No JVD Lungs: Diminished right greater than left, Normal air movement, No rhonchi, No wheeze, No rales chest tube in the right chest is intact Cardiovascular: Regular rate, Regular Rhythm, Normal S1, Normal S2, No murmurs Abdomen: Soft, Non Tender, Non-Distended, No Hepato-splenomegaly Extremities: No edema, Capillary Refill Less than 3 Seconds Skin: No rashes, No breakdown Musculoskeletal: No Tenderness to Palpation of Joints or Extremities Neurological: Cranial nerves II-XII grossly intact, Motor Exam 5/5 strength throughout, Sensory exam intact to light touch and pain Psych/Mental Status: Normal Affect, Appropriate Weight / BMI Weight Weight: 138 lb 0.15 oz Body Mass Index (BMI) 25.0 ABG / Lab / Microbiology Data Result Diagrams: 01/31/22 04:06 01/31/22 04:06 Laboratory: Laboratory Results - last 24 hr 01/31/22 04:06: WBC 14.4 H, RBC 3.80 L, Hgb 10.6 L, Hct 32.7 L, MCV 86.1, MCH 27.9, MCHC 32.4, RDW Std Deviation 47.5 H, RDW Coeff of Angelo 15.0 H, Plt Count 353, MPV 9.1, Immature Gran % (Auto) 2.400 H, Neut % (Auto) 72.9 H, Lymph % (Auto) 8.4 L, Sac % (Auto) 14.1 H, Eos % (Auto) 1.7, Baso % (Auto) 0.5, Absolute Neuts (auto) 10.5 H, Absolute Lymphs (auto) 1.22, Nucleated RBC % 0, Diff Path Review October, Anisocytosis 1+ 01/31/22 04:06: PT 26.9 H, INR 2.5 01/31/22 04:06: Sodium 137, Potassium 3.6, Chloride 101, Carbon Dioxide 30.0, Anion Gap 6, BUN 14, Creatinine 0.61, Estim Creat Clear Calc 36.12, Est GFR (MDRD) Af Amer 122, Est GFR (MDRD) Non-Af 101, BUN/Creatinine Ratio 22.9 H, Glucose 103, Calcium 7.8 L Microbiology: Microbiology 01/26/22 10:46 Fluid - Thoracentesis Fluid Gram Stain - Final 01/26/22 10:46 Fluid - Thoracentesis Fluid Body Fluid Culture - Final No growth aerobically. 01/26/22 10:46 Fluid - Thoracentesis Fluid Anaerobic Culture - Final No growth in 5 days. 01/26/22 06:28 Blood Culture (Wb) - Anticubital Left Blood Culture - Final Pasteurella multocida 01/26/22 20:25 Urine Catheter - Catheter Urine Culture - Final Culture exhibits no growth. 01/26/22 06:45 Blood Culture (Wb) - Anticubital Right Blood Culture - Final Gram negative cocco bacillus 01/26/22 20:25 Urine, Clean Catch Legionella Antigen - Final 01/26/22 20:25 Urine, Clean Catch Streptococcus pneumoniae Antigen (M - Final 01/26/22 12:55 Mucosa - Nasopharyngeal Respiratory Panel (PCR) - Final 01/26/22 05:45 Nasal Secretion SARS-CoV-2 & FLU Antigen (Rapid) - Final Meaningful Use Info Meaningful Use Diagnoses (Choose all that apply): None applicable Discharge Plan Admission Admit Date/Time: 01/26/22 07:41 Attending Provider: Gurjit Reese Primary Care Provider: Wes Magallon Consulting Providers: Flaquito Mariee ; Dwayne Garcia ; Alberto Gill ; Amy Cummings NP ; Fatimah Mcclain ; Abimael Banks ; Elisabeth Nascimento Discharge Orders/Prescriptions Prescriptions: No Action multivitamin Tablet 1 tab PO DAILY calcium carbonate 600 mg calcium (1,500 mg) tablet 600 mg PO DAILY (DME) Handicap placard Qty: 1 0RF Rx Instructions: Lifetime handicap placard albuterol sulfate 90 mcg/actuation HFA aerosol inhaler 2 puff INHALATION Q4H PRN (Reason: SOB) metoprolol tartrate 100 mg tablet 100 mg PO DAILY warfarin 4 mg tablet See Rx Instructions PO .COMPLEX Rx Instructions: 4mg PO Mon & Fri, 2mg PO all other days omeprazole 40 MG capsule 40 mg PO DAILY Label Comments: ACID REFLUX potassium chloride 20 mEq tablet,ER particles/crystals 20 meq PO BID furosemide 40 mg tablet 40 mg PO BID Qty: 180 3RF diltiazem HCl 240 mg capsule,extended release 24hr 240 mg PO DAILY Qty: 90 3RF Rx Instructions: TAKE 1 CAPSULE EVERY DAY amiodarone 200 mg tablet 100 mg PO DAILY Qty: 45 3RF Referrals / Follow Up: Wes Magallon MD [Primary Care Provider] - Charges/Coding Visit Charges Inpatient E&M: 46034 Disch Hosp
--- NOTE | 2022-01-31 15:30 | NURSING ---
report called to [facility] and spoke with Erika Ortiz RN
[2022-01-31 15:32] LABS: Pathologist Review Reviewed
--- NOTE | 2022-01-31 15:35 | CASEMGMT ---
SERA Tello at [facility] to make aware pt will be trf'd to tertiary care facility.
[2022-01-31] MEDS: 0.9% Saline Lock 10 ML Syringe IV (17:01)
[2022-02-01 08:52] LABS: Pathologist Review Reviewed
[2022-02-01 08:56] LABS: Pathologist Review Reviewed
== END 2022-01-31 17:00 | disposition short-term general hospital (02) | DRG 177 ==
LOC: ED 07:54 → MS3 08:10
PROVIDERS: Admitting Provider Internal Medicine; Emergency Provider Emergency Medicine; PCP Family Medicine; Visit Provider Family Medicine
DX: J86.9 Pyothorax without fistula (principal); J15.6 Pneumonia due to other Gram-negative bacteria; J96.01 Acute respiratory failure with hypoxia; A28.0 Pasteurellosis; E87.1 Hypo-osmolality and hyponatremia; I50.32 Chronic diastolic (congestive) heart failure; J44.0 Chronic obstructive pulmonary disease with (acute) lower respiratory infection; N28.0 Ischemia and infarction of kidney; J91.8 Pleural effusion in other conditions classified elsewhere; Q87.40 Marfan syndrome, unspecified; L03.115 Cellulitis of right lower limb; D73.5 Infarction of spleen; E83.39 Other disorders of phosphorus metabolism; I11.0 Hypertensive heart disease with heart failure; I27.20 Pulmonary hypertension, unspecified; I48.0 Paroxysmal atrial fibrillation; M06.9 Rheumatoid arthritis, unspecified; E86.0 Dehydration; E78.5 Hyperlipidemia, unspecified; K21.9 Gastro-esophageal reflux disease without esophagitis; I44.0 Atrioventricular block, first degree; Z79.899 Other long term (current) 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; Z79.01 Long term (current) use of anticoagulants; R79.1 Abnormal coagulation profile; E07.81 Sick-euthyroid syndrome; Z28.310 Unvaccinated for COVID-19; T45.515A Adverse effect of anticoagulants, initial encounter
CPT/HCPCS: 32555; 36415; 71045; 71046; 71250; 71275; 80048; 80053; 81001; 82248; 82945; 83605; 83615; 83735; 83880; 84100; 84157; 84439; 84443; 84481; 84484; 85025; 85379; 85610; 85730; 87040; 87070; 87075; 87077; 87086; 87186; 87205; 87428; 87449; 87633; 87641; 88108; 88305; 88313; 89050; 92610; 93005; 94640; 94762; 97110; 97162; 97166; 97530; 97535; 99251; 99285; J7030; J7040; J7050; Q9967; A4216; G0463; J0696; J2405

== ENCOUNTER → 2022-02-09 | Outpatient (CLI) | payer MEDICARE, SELFPAY ==
[2022-02-09 15:44] LABS: International Normalized Ratio 1.9; Prothrombin Time (Protime)PT. 21.8 SECONDS (11.7-14.9)
== END | disposition home or self-care (01) ==
LOC: LABSPEC 15:08
PROVIDERS: PCP Family Medicine; Visit Provider Family Medicine
DX: I48.0 Paroxysmal atrial fibrillation (principal)
CPT/HCPCS: 85610

== ENCOUNTER → 2022-03-08 | Outpatient (CLI) | payer MEDICARE, SELFPAY ==
--- NOTE | 2022-03-08 13:35 | ECHOD_ITS ---
Reason For Study: DYSPNEA/SOB Procedure This was a 2D Doppler, Color Flow transthoracic echocardiogram. The exam was of adequate technical quality. Exam performed in department. Left Ventricle Normal LV size. Left ventricular systolic function is normal. The estimated ejection fraction is 60 %. Stage 2 diastolic dysfunction. No regional wall motion abnormalities noted. Right Ventricle Normal RV size. Normal systolic function. Atria The left atrium is severely enlarged. The right atrium is mildly enlarged. No doppler evidence for ASD. Mitral Valve There is moderate to severe mitral annular calcification. Extension of the mitral annular calcification onto the base of the posterior mitral valve leaflet. The mitral papillary muscle appears thickened and/or calcified. Moderate (2+) eccentric mitral valve insufficiency. Tricuspid Valve Normal tricuspid valve. Moderate (2+) tricuspid valve insufficiency. Right ventricular systolic pressure estimated to be 54 mmHg. Aortic Valve Trisinus/trileaflet aortic valve. Mild focal aortic valve calcification. Pulmonic Valve The pulmonic valve is not well visualized. Great Vessels Borderline enlarged aortic root. Pericardium/Pleural No pericardial effusion. MMode/2D Measurements & Calculations LVIDd: 4.6 cm IVSd: 0.96 cm LVOT diam: 2.0 cm LVIDs: 2.6 cm LVPWd: 1.0 cm LVOT area: 3.2 cm2 RVDd: 3.3 cm FS: 44.3 % Ao root diam: 3.9 cm LAV(MOD-bp): 107.3 ml LA A4 area: 30.0 cm2 LA dimension: 5.6 cm LAV(MOD-bp) Indexed: 68.6 ml/m2 LAV(MOD-sp2): 100.9 ml LAV(MOD-sp4): 108.0 ml RA A4 area: 17.4 cm2 Time Measurements MV dec time: 0.20 sec Doppler Measurements & Calculations MV E max jackson: 132.2 cm/sec Lat Peak E' Jackson: 10.0 cm/sec Med Peak E' Jackson: 7.3 cm/sec MV A max jackson: 81.3 cm/sec E/E' lat: 13.2 E/E' med: 18.2 MV E/A: 1.6 MV dec slope: 709.2 cm/sec2 Ao V2 max: 111.2 cm/sec LV V1 max: 96.4 cm/sec Ao max P.0 mmHg LV V1 max P.7 mmHg RAJI(V,D): 2.8 cm2 MR max jackson: 527.9 cm/sec PA V2 max: 115.2 cm/sec TR max jackson: 355.3 cm/sec MR max P.5 mmHg TR max P.5 mmHg MR mean jackson: 427.4 cm/sec MR mean P.0 mmHg MR VTI: 193.5 cm ECHO/Echo Complete Interpretation Summary Left ventricular systolic function is normal. The estimated ejection fraction is 60 %. The left atrium is severely enlarged. The right atrium is mildly enlarged. There is moderate to severe mitral annular calcification. Extension of the mitral annular calcification onto the base of the posterior mi tral valve leaflet. The mitral papillary muscle appears thickened and/or calcified. Moderate (2+) eccentric mitral valve insufficiency. Moderate (2+) tricuspid valve insufficiency. Mild focal aortic valve calcification. Borderline enlarged aortic root. Right ventricular systolic pressure estimated to be 54 mmHg c/w pulmonary hyper tension. Stage 2 diastolic dysfunction. Ordering Physician: Junaid Arriaga Referring Physician: Wes Magallon Performed By: Patricia Stewart, RDCS, RVT
[2022-03-08 16:36] LABS: T4 Total, Thyroxin 14.8 ug/dL (4.8-13.9)
== END | disposition home or self-care (01) ==
LOC: CVS 13:34 → LAB 14:43
PROVIDERS: PCP Family Medicine; Referring Provider Internal Medicine Cardiovascular Disease; Visit Provider Internal Medicine Cardiovascular Disease
DX: R06.02 Shortness of breath (principal); I11.0 Hypertensive heart disease with heart failure; I50.9 Heart failure, unspecified; I48.0 Paroxysmal atrial fibrillation; E78.2 Mixed hyperlipidemia; J90 Pleural effusion, not elsewhere classified
CPT/HCPCS: 36415; 84436; 84443; 93306

== ENCOUNTER → 2022-04-04 | Outpatient (CLI) | payer MEDICARE, SELFPAY ==
--- NOTE | 2022-04-04 13:45 | RAD_ITS ---
STUDY: X-RAY CHEST REASON FOR EXAM: Female, 76 years old. Chest pain/pressure TECHNIQUE: PA and lateral views of the chest. COMPARISON: 01/28/2022 FINDINGS: Since the previous study, a right-sided chest tube has been removed. Lungs are hyperexpanded with chronic interstitial changes, stable blunting of the right costophrenic angle likely chronic scarring. No demonstrated pneumothorax or mediastinal shift. Normal size heart. Normal mediastinum and claudia. Normal visualized pulmonary arteries. There is atherosclerotic tortuosity of the aortic arch and descending thoracic aorta. There are diffuse degenerative changes of the visualized thoracic spine. There is degenerative osteoarthritis of the bilateral shoulders. There is no demonstrated abnormality of the visualized soft tissue structures of the upper abdomen. RAD/Chest PA and Lateral IMPRESSION: After removal of the right-sided chest tube, no demonstrated pneumothorax or mediastinal shift. Lungs are mildly hyperexpanded with chronic interstitial changes and postsurgical changes in the right lung, stable blunting of the right costophrenic angle, no superimposed pulmonary process Electronically Signed: Vinnie Tipton MD at 8:59 EDT ,
== END | disposition home or self-care (01) ==
LOC: RAD 13:45
PROVIDERS: PCP Family Medicine; Referring Provider Internal Medicine Critical Care Medicine; Visit Provider Internal Medicine Critical Care Medicine
DX: J86.9 Pyothorax without fistula (principal)
CPT/HCPCS: 71046

== ENCOUNTER 2022-04-19 13:22 | Outpatient (CLI) | payer MEDICARE, SELFPAY ==
[2022-04-19 13:43] LABS: Prothrombin Time (Protime)PT. 22.1 SECONDS (11.7-14.9)
== END 2022-04-19 23:59 | disposition home or self-care (01) ==
PROVIDERS: Visit Provider Family Medicine
DX: I48.20 Chronic atrial fibrillation, unspecified (principal)
CPT/HCPCS: 85610

== ENCOUNTER 2022-05-05 10:24 | Outpatient (CLI) | payer MEDICARE, MEDICAID, SELFPAY ==
--- NOTE | 2022-05-06 10:58 | PFT ---
INTRODUCTION: The patient is a 76-year-old female that presents for pulmonary function studies secondary to a diagnosis of pneumothorax. Respiratory therapy reported good patient effort. Bronchodilators were used during testing. INTERPRETATION: Forced expiration spirometry demonstrates no evidence of a large airways obstructive ventilatory defect. There was no significant response to aerosolized bronchodilators. Spirograms are of good quality and plateau normally. Body plethysmography was performed and reveals lung volumes to be within normal limits. Diffusing capacity by single breath CO is also within normal limits. IMPRESSION: Grossly normal pulmonary function studies. There has been significant improvement in the patient's PFTs since October 2021.
== END 2022-05-05 23:59 | disposition home or self-care (01) ==
LOC: PSN 10:27
PROVIDERS: PCP Family Medicine; Referring Provider Internal Medicine Critical Care Medicine; Visit Provider Internal Medicine Critical Care Medicine
DX: J86.9 Pyothorax without fistula (principal)
CPT/HCPCS: 94060; 94726; 94729

== ENCOUNTER → 2022-06-30 | Outpatient (CLI) | payer MEDICARE, MEDICAID, SELFPAY ==
--- NOTE | 2022-06-29 14:20 | ASPS_PTH ---
PATIENT: NIMISHA CEJA LOC: [facility] U#:[id number] AGE/SX: 76/F ROOM: RE06/30/[address]: Dr. Abimael Evans MD : 1945 BED: DIS: 06/30/2022 SPEC #: [id number] RECD: 06/30/22 08:50 STATUS: PATO CRABTREE #: [id number] FELICIA: 06/29/22 14:[address]: Abimael Evans DEPT: CYTOLOGY RECD BY: Mignon Huizar ENTERED: 06/30/22 13:27 SP TYPE: ASPIRATION OTHR DR: Dr. Wes Magallon MD Tissues: Thyroid gland, NOS Procedures: Special Stain Group II Cytology Other HEADER OPERATION: Left thyroid fine needle aspiration PRE-OP DIAGNOSIS: Thyroid nodule TISSUE SUBMITTED: Left mid thyroid nodule x6 slides DIAGNOSIS CYTOLOGY Fine needle aspiration, left mid thyroid nodule (smears): Adequate for evaluation. Chronic inflammation. Benign, consistent with benign follicular/colloid nodule (Valmeyer Category II). See comment. AM:rosana 07/01/2022 COMMENT The Valmeyer System for thyroid diagnostic categorization was used in the evaluation of this case. The specimen is adequate for evaluation. CYTOLOGY STUDY Slides are reviewed. CYTOLOGY GROSS Received are six smears labeled with the patient's name and designated per the requisition as left mid thyroid. Submitted for staining. / rosana 06/30/2022 TC:5 CPT: 85769
== END | disposition home or self-care (01) ==
LOC: LABSPEC 09:55
PROVIDERS: PCP Family Medicine; Visit Provider Surgery
DX: E04.1 Nontoxic single thyroid nodule (principal)
CPT/HCPCS: 88161; 88313

== ENCOUNTER → 2022-12-09 | Outpatient (CLI) | payer OTHER, MEDICAID, SELFPAY ==
--- NOTE | 2022-12-09 15:56 | CT_ITS ---
STUDY: CT Abdomen And Pelvis W/O Contrast Injection 12/10/2022 7:04 PM REASON FOR EXAM: Female, 77 years old. Abdominal pain bloating Individualized dose optimization techniques were used for this CT. COMPARISON: 01/26/22. TECHNIQUE: CT Abdomen And Pelvis W/O Contrast Injection Oral contrast was given FINDINGS: There are atherosclerotic calcifications of visualized coronary arteries. Minimal lower lobe infiltrates may suggest atelectasis or infiltrate. Stable hypodensities of the liver. Normal gallbladder and extrahepatic biliary system. Normal spleen. Normal pancreas. Normal bilateral adrenal glands. No acute findings of the right kidney. No acute findings of the left kidney. Normal visualized stomach. Normal small intestine. There are multiple colonic diverticula consistent with diverticulosis. There is non-visualization of the appendix. There are calcifications of the abdominal aorta. This is consistent for atherosclerotic disease. There is NO abdominal aortic aneurysm. Vascular workup can be obtained based on clinical correlation. Normal inferior vena cava. Subcentimeter mesenteric lymph nodes. Normal urinary bladder. There is absence of the uterus consistent with a prior hysterectomy. Normal abdominal wall. There are diffuse degenerative changes of the visualized lumbar spine. There is a compression deformity of the spine at level: T11 . These are age-indeterminate. MRI could further evaluate if of concern. Degenerative findings of the right hip. Osteitis pubis. CT/Abdomen/Pel W ORAL Cont Only IMPRESSION: (NOT LISTED IN ORDER OF SIGNIFICANCE) There is a compression deformity of the spine at level: T11 . These are age-indeterminate. MRI could further evaluate if of concern. Minimal lower lobe infiltrates may suggest atelectasis or infiltrate. There are multiple colonic diverticula consistent with diverticulosis. Other findings as above. Electronically Signed: Wilbert Butterfield MD at 19:09 EDT ,
== END | disposition home or self-care (01) ==
PROVIDERS: PCP Family Medicine; Referring Provider Surgery; Visit Provider Surgery
DX: R14.0 Abdominal distension (gaseous) (principal)
CPT/HCPCS: 74176

== ENCOUNTER → 2022-12-26 | Outpatient (CLI) | payer MEDICARE, MEDICAID, SELFPAY ==
--- NOTE | 2022-12-26 09:50 | RAD_ITS ---
PROCEDURE: Upper GI with Small Bowel Follow Through DATE OF EXAMINATION: Air-contrast upper GI series and small bowel follow-through examination.. INDICATION: Female, 77 years old. Abdominal bloating for 3 months. FLUOROSCOPY TIME (if supplied): (1:48) minutes/seconds. 30 images were obtained. 52.95 mGy TECHNIQUE: Radiographic and fluoroscopic images of the distal esophagus, stomach, and entire small intestine were obtained following the oral ingestion of barium. COMPARISON: None. FINDINGS: There is mild dilatation of the esophagus with decreased peristaltic activity. Mild narrowing at the gastroesophageal junction. The stomach and duodenum are unremarkable. Some ulceration. A single contrast small bowel follow through exam demonstrates the small bowel to have no evidence for stricture, ulceration or mass. The transit time is normal at 30 minutes. RAD/Upper GI/w Small Bowel IMPRESSION: 1. Decreased peristaltic activity of the esophagus. Mild narrowing at the gastroesophageal junction. The small bowel examination is unremarkable. Electronically Signed: Shashi Jacobo MD at 14:16 EDT ,
== END | disposition home or self-care (01) ==
PROVIDERS: PCP Family Medicine; Referring Provider Surgery; Visit Provider Surgery
DX: R93.5 Abnormal findings on diagnostic imaging of other abdominal regions, including retroperitoneum (principal)
CPT/HCPCS: 74246; 74248

== ENCOUNTER 2023-02-14 09:38 | Day surgery (SDC) | payer MEDICARE, MEDICAID, SELFPAY ==
--- NOTE | 2023-02-14 | GASB_PTH ---
PATIENT: NIMISHA CEJA LOC: [facility] U#:[id number] AGE/SX: 77/F ROOM: RE02/14/[address]: Dr. Abimael Evans MD : 1945 BED: DIS: 02/14/2023 SPEC #: [id number] RECD: 02/14/23 12:28 STATUS: PATO BRO #: [id number] FELICIA: 02/14/23 00:[address]: Abimael Evans DEPT: SURGICAL PATHOLOGY RECD BY: Francisco Casillas ENTERED: 02/14/23 12:29 SP TYPE: Gastric Bx OTHR DR: Dr. Wes Magallon MD Tissues: A - Duodenum, NOS B - Gastric mucous membrane C - Esophageal mucous membrane Procedures: Special Stain Group II Surgery Specimen Level IV Alcian Blue/PAS (control) HEADER OPERATION: EGD, biopsy PRE-OP DIAGNOSIS: Bloating, iron deficiency anemia TISSUE SUBMITTED: A - Duodenum biopsy, B - Antrum biopsy for histo and H. pylori, C - Distal esophagus biopsy MICROSCOPIC DIAGNOSIS A. Duodenum, biopsy: Fragments of duodenal mucosa, no pathologic diagnosis. B. Antrum, biopsy: Mild gastritis. See microscopic description and comment. C. Distal esophagus, biopsy: Fragments of gastroesophageal mucosa with intestinal metaplasia (goblet cell metaplasia), consistent with Ernandez's esophagus. Moderate chronic inflammation. Indefinite for low-grade dysplasia. See comment. SJ:rosana 02/15/2023 COMMENT B. The results of immunohistochemistry for Helicobacter pylori will be reported separately ([id number]). C. Immunohistochemistry ([id number]) for P53 and Ki-67 will be performed and results will be reported separately. Alcian blue/PAS stain with matched control is used in the evaluation of the specimen. Case has been reviewed in consultation with Dr. Luis who concurs with the above diagnosis. IDC:AM MICROSCOPIC DESCRIPTION Slides are reviewed. B. The specimen shows fragments of gastric mucosa with chronic inflammatory cell infiltrates in the lamina propria consisting of lymphocytes and plasma cells, consistent with mild chronic gastritis. GROSS DESCRIPTION A - Received in fixative is one container labeled with the patient's name and designated duodenum biopsy. The specimen consists of two irregular fragments of light almonte soft tissue that in aggregate measure 0.6 x 0.3 x 0.1 cm. The specimen is totally submitted in one cassette. B - Received in fixative is one container labeled with the patient's name and designated antrum biopsy. The specimen consists of one irregular fragment of light almonte soft tissue that measures 0.4 x 0.3 x 0.1 cm. The specimen is totally submitted in one cassette. C - Received in fixative is one container labeled with the patient's name and designated distal esophagus biopsy. The specimen consists of multiple irregular fragments of light almonte soft tissue that in aggregate measure 2.0 x 0.8 x 0.1 cm. The specimen is totally submitted in one cassette. / SJ:rg 02/14/2023 TC:5 CPT: 68532 x3, 13977
--- NOTE | 2023-02-14 09:47 | HP.PCM_ITS ---
History and Physical Date of Admission: 02/14/23 Visit Reasons: Discuss upper GI results & plan Chief Complaint: discuss CT results Home Health Specialist Required: No Is patient in pain?: No Allergies pneumococcal vaccine [From Prevnar 13 (PF)] Allergy (Severe, Verified 01/10/23 13:45) RashLatex, Natural Rubber Allergy (Verified 01/10/23 13:45) Rashrosuvastatin calcium [From Crestor] Allergy (Verified 01/10/23 13:45) myalgiasibuprofen Adverse Reaction (Verified 01/10/23 13:45) Nausea Medications omeprazole 40 mg capsule,delayed release 40 mg PO DAILY GERD 10/19/14 [History Confirmed 01/10/23] calcium carbonate 600 mg calcium (1,500 mg) tablet 600 mg PO DAILY SUPPLEMENT 06/19/19 [History Confirmed 01/10/23] multivitamin 1 tab PO DAILY SUPPLEMENT 06/19/19 [History Confirmed 01/10/23] Handicap placard #1 ea 01/07/20 [Rx Confirmed 01/10/23] albuterol sulfate 90 mcg/actuation aerosol inhaler 2 puff inhalation Q4H PRN SOB 01/09/20 [History Confirmed 01/10/23] amiodarone 200 mg tablet 100 mg (1/2 x 200 mg) PO DAILY #45 tabs 07/18/22 [Rx Confirmed 01/10/23] diltiazem HCl 240 mg capsule,extended release 24 hr 240 mg PO DAILY HEART #90 caps 07/18/22 [Rx Confirmed 01/10/23] furosemide 40 mg tablet 40 mg PO BID FLUID #180 tabs 07/18/22 [Rx Confirmed 01/10/23] potassium chloride 20 mEq tablet,extended release 20 meq PO BID #180 tabs 07/18/22 [Rx Confirmed 01/10/23] warfarin 4 mg tablet See Rx Instructions PO .COMPLEX AFIB #60 tabs 07/18/22 [Rx Confirmed 01/10/23] metoprolol tartrate 100 mg tablet 100 mg PO DAILY #90 tabs 07/25/22 [Rx Confirmed 01/10/23] ferrous fumarate 324 mg (106 mg iron) tablet 324 mg PO DAILY 11/29/22 [History Confirmed 01/10/23] PFSH Medical History Abdominal pain Atrial fibrillation Bloating Chronic anticoagulation Chronic atrial fibrillation with RVR Congestive heart failure (CHF) COPD (chronic obstructive pulmonary disease) COPD (chronic obstructive pulmonary disease) Embolic infarction Essential hypertension Exudative pleural effusion GERD (gastroesophageal reflux disease) Goiter Hepatic congestion HLD (hyperlipidemia) HTN (hypertension) Hypertension Hypokalemia Hyponatremia Leukocytosis long-term current use of amiodarone Marfans syndrome Mixed hyperlipidemia Non-smoker PAF (paroxysmal atrial fibrillation) Paroxysmal atrial fibrillation Paroxysmal atrial fibrillation with RVR Pleural effusion PNA (pneumonia) Pulmonary hypertension Recurrent pleural effusion Renal cyst Renal infarction Rheumatoid arthritis Rheumatoid arthritis Splenic infarction Substance abuse Subtherapeutic international normalized ratio (INR) Surgical History History of eye surgery History of hysterectomy Family History Mother Diabetes Colon cancer Marfan syndromeSister Diabetes HypertensionBrother Marfan syndrome COPD (chronic obstructive pulmonary disease)Brother Marfan syndromeFather Gastric ulcer GERD (gastroesophageal reflux disease) Social History household members: spouse and children housing: house Smoking Status: Never smoker alcohol intake: never substance use type: does not use caffeine: Yes Type: coffee Number of servings: 4 HPI HPI HPI: 77-year-old female presents to discuss abdominal bloating. At my request she had a contrast upper GI with small bowel follow-through on December 26, 2022. There is questionable narrowing of the EG junction and a dilated esophagus. Stomach generally appears to be larger than the rest of the bowel. At this point I would suggest to esophagogastroduodenoscopy. My previous notes reflect the following 77-year-old female who I was asked to provide a consultation on on November 29, 2022 because of chronic anemia. 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 She has gallstones and sludge. Rheumatoid arthritis pulmonary emphysema and Marfan syndrome. She was complaining of abdominal bloating. At the time of her office visit I did not feel that the risk-benefit ratio of endoscopy was in her favor. On December 09, [address] at my request. I have personally reviewed these images and I have personally additionally contacted Dr. Jacobo radiologist and reviewed the images. There is felt to be a double bubble sign of the stomach. No obstruction to the small or large bowel. The rectum seems to have a fair amount of gas and with as well but the bowels not approximately distended. It is felt that possibly she has some gastric outlet issues or motility problems. Question whether we pursue an upper endoscopy or an upper GI contrast study or nuclear medicine gastric emptying study. She returns today at my request for further consultation and evaluation. Her primary complaint plate still remains that she feels bloated. She states that when she lies down at night that seems to improve December 26, 2022 PROCEDURE: Upper GI with Small Bowel Follow Through DATE OF EXAMINATION: Air-contrast upper GI series and small bowel follow-through examination.. INDICATION: Female, 77 years old. Abdominal bloating for 3 months. FLUOROSCOPY TIME (if supplied): (1:48) minutes/seconds. 30 images were obtained. 52.95 mGy TECHNIQUE: Radiographic and fluoroscopic images of the distal esophagus, stomach, and entire small intestine were obtained following the oral ingestion of barium. COMPARISON: None. FINDINGS: There is mild dilatation of the esophagus with decreased peristaltic activity. Mild narrowing at the gastroesophageal junction. The stomach and duodenum are unremarkable. Some ulceration. A single contrast small bowel follow through exam demonstrates the small bowel to have no evidence for stricture, ulceration or mass. The transit time is normal at 30 minutes. RAD/Upper GI/w Small Bowel IMPRESSION: 1. Decreased peristaltic activity of the esophagus. Mild narrowing at the gastroesophageal junction. The small bowel examination is unremarkable. Electronically Signed: Shashi Jacobo MD at 14:16 EDT , December 09, 2022 STUDY: CT Abdomen And Pelvis W/O Contrast Injection 12/10/2022 7:04 PM REASON FOR EXAM: Female, 77 years old. Abdominal pain bloating Individualized dose optimization techniques were used for this CT. COMPARISON: 01/26/22. TECHNIQUE: CT Abdomen And Pelvis W/O Contrast Injection Oral contrast was given FINDINGS: There are atherosclerotic calcifications of visualized coronary arteries. Minimal lower lobe infiltrates may suggest atelectasis or infiltrate. Stable hypodensities of the liver. Normal gallbladder and extrahepatic biliary system. Normal spleen. Normal pancreas. Normal bilateral adrenal glands. No acute findings of the right kidney. No acute findings of the left kidney. Normal visualized stomach. Normal small intestine. There are multiple colonic diverticula consistent with diverticulosis. There is non-visualization of the appendix. There are calcifications of the abdominal aorta. This is consistent for atherosclerotic disease. There is NO abdominal aortic aneurysm. Vascular workup can be obtained based on clinical correlation. Normal inferior vena cava. Subcentimeter mesenteric lymph nodes. Normal urinary bladder. There is absence of the uterus consistent with a prior hysterectomy. Normal abdominal wall. There are diffuse degenerative changes of the visualized lumbar spine. There is a compression deformity of the spine at level: T11 . These are age-indeterminate. MRI could further evaluate if of concern. Degenerative findings of the right hip. Osteitis pubis. CT/Abdomen/Pel W ORAL Cont Only IMPRESSION: (NOT LISTED IN ORDER OF SIGNIFICANCE) There is a compression deformity of the spine at level: T11 . These are age-indeterminate. MRI could further evaluate if of concern. Minimal lower lobe infiltrates may suggest atelectasis or infiltrate. There are multiple colonic diverticula consistent with diverticulosis. Other findings as above. Electronically Signed: Wilbert Butterfield MD at 19:09 EDT , ROS General General: Yes fatigue; No weight change, appetite, colon cancer, breast cancer or weakness HEENT HEENT: Yes eye injury and eye surgery; No difficulty swallowing, swollen glands or hoarseness Endo Endocrine: Yes thyroid disease; No diabetes mellitus, thyroid cancer, Hair loss, heat intolerance or cold intolerance Skin Skin: No rash or changing moles Breast Breast: No left breast lump, right breast lump, nipple discharge, breast pain, abnormal mammogram, abnormal US or breast enlargement Musc Musculoskeletal: Yes arthritis and rheumatoid arthritis; No back problems, gout or joint pain Cardio Cardiovascular: Yes murmur, heart disease, atrial fibrillation and high blood pressure; No pacemaker, heart attack, heart stent, palpitations, shortness of breat with exertion or chest pain Psych Psychiatric: No depression, anxiety or hearing voices Resp Respiratory: Yes shortness of breath, No sleep apnea, Yes cough, Yes COPD, No asthma, No emphysema and No wheezing Gastro Gastrointestinal: No abdominal pain, No nausea or vomiting, No diarrhea, No constipation, No blood in stool, No acid reflux, No hemorrhoids, No ulcers, No gallbladder problem and No black,tarry stools Julio Hematologic: Yes blood thinners, No blood disorders, No bleeding, No anemia and No blood clots Neuro Neurologic: No system reviewed and no additional complaints, except as documented, No as per HPI, No abnormal gait, No abnormal hearing, No abnormal movements, No abnormal speech, No behavioral changes, No burning sensations, No confusion, No convulsions, No disequilibrium, No dizziness, No localized weakness, No frequent falls, No headache(s), No lack of coordination, No loss of vision, No memory loss, No numbness, No other visual disturbances, No radicular pain, No restless legs, No sensory deficit, No syncope, No tingling, No tremor(s), No weakness and No other Assessment and Plan Assessment and Plan (1) Bloating: Status: Acute (2) Iron deficiency anemia: Status: Acute Qualifiers: Iron deficiency anemia type: unspecified iron deficiency Qualified Code(s): D50.9 - Iron deficiency anemia, unspecified Plan: I recommended the patient a esophagogastroduodenoscopy with possible biopsy. She describes what sounds like possible H. pylori in the past. Careful inspection of the distal esophagus as well as the gastric outlet pylorus will be pursued. The patient is aware that if stricturing is identified that I would anticipate trying to do some hydrostatic dilatation. We will have her hold her Coumadin for 3 days per preprocedure. She is aware of technique, benefit, risk, alternatives. We will schedule and proceed at her discretion. I appreciate the ongoing opportunity of assisting with her surgical care. Copy: Dr. Wes Evans M.D., F.A.C.S I have examined the patient and the H&P has been reviewed. There are no clinical changes since date of exam. Abimael Evans M.D., F.A.C.S.
[2023-02-14 10:01] LABS: INR Fingerstick 1.6; Prothrombin Time Fingerstick 17.9 SEC (11.7-14.9)
[2023-02-14] MEDS: Lactated Ringers 1,000 ML 15 ML IV (10:11)
[2023-02-14 10:12] VITALS: BP 130/62; PULSE 60; RESP 18; TEMP 36.5; O2SAT 94; BMI 24.2
--- NOTE | 2023-02-14 10:45 | IMM_PTH ---
PATIENT: NIMISHA CEJA LOC: EN U#:[id number] AGE/SX: 77/F ROOM: RE02/14/[address]: Dr. Abimael Evans MD : 1945 BED: DIS: 02/14/2023 SPEC #: [id number] RECD: 02/14/23 13:56 STATUS: PATO REQ #: [id number] FELICIA: 02/14/23 10:[address]: Abimael Evans DEPT: IMMUNOHISTOCHEMISTRY RECD BY: Nany Fernandez ENTERED: 02/14/23 13:56 SP TYPE: IMMUNO OTHR DR: Dr. Wes Magallon MD Tissues: B - Stomach, NOS C - Esophagus, NOS Procedures: H Pylori (initial) P53 (initial) KI-67 (add) PHYSICIAN & INSTITUTION [place] [id number] SPECIMEN INFORMATION: Tissue Source: B - Antrum, C - Distal esophagus Clinical Info: Bloating, iron deficiency anemia Specimen Number: [id number] B & C CPT code: 12599 x2, 69282 METHODOLOGY: Deparaffinized sections of prefer/formalin-fixed tissue or PAP/DQ stained slides are incubated with monoclonal/polyclonal antibodies/oligonucleotide probes. Localization is made via biotin free immunoperoxidase method. Appropriate controls are performed and reacted as expected. Results on target cell population are indicated in the following table: RESULTS: ANTIBODY / CLONE RESULT Block B H Pylori (polyclonal) negative Block C P53 (DO-7) positive, focal (wild type pattern) Ki-67 (30-9) positive, low These tests were developed and their performance characteristics determined by [facility]. They may not have been cleared or approved by the U.[place]. Food and Drug Administration. The FDA has determined that such clearance or approval is not necessary. The above immunohistochemical/dualISH markers are ordered and reviewed by the Pathologist. INTERPRETATION: B. Antrum, biopsy: Negative for Helicobacter pylori organisms. C. Distal esophagus, biopsy: Indefinite for low grade dysplasia. SJ:rosana 02/16/2023
[2023-02-14 10:58] VITALS: BP 130/62; BP 79/49; PULSE 68; RESP 16; TEMP 36.2; O2SAT 93
--- NOTE | 2023-02-14 10:58 | OP.EGD_ITS ---
Patient Name: Libra Fishman Procedure Date: 02/14/2023 10:24 AM Date of : 1945 Age: 77 Procedure: Upper GI endoscopy Indications: Generalized abdominal pain Providers: Abimael Evans MD Referring MD: Wes Magallon Medicines: See the Anesthesia note for documentation of the administered medications Complications: No immediate complications. Procedure: Pre-Anesthesia Assessment: - Prior to the procedure, a History and Physical was performed, and patient medications and allergies were reviewed. The patient's tolerance of previous anesthesia was also reviewed. The risks and benefits of the procedure and the sedation options and risks were discussed with the patient. All questions were answered, and informed consent was obtained. Prior Anticoagulants: The patient has taken no anticoagulant or antiplatelet agents. ASA Grade Assessment: III - A patient with severe systemic disease. After reviewing the risks and benefits, the patient was deemed in satisfactory condition to undergo the procedure. After obtaining informed consent, the endoscope was passed under direct vision. Throughout the procedure, the patient's blood pressure, pulse, and oxygen saturations were monitored continuously. The gastroscope was introduced through the mouth, and advanced to the second part of duodenum. The upper GI endoscopy was accomplished without difficulty. The patient tolerated the procedure well. Scope In: 10:33:29 AM Scope Out: 10:50:21 AM Total Procedure Duration Time 0 hours 16 minutes 52 seconds Findings: A medium-sized hiatal hernia was present. There were esophageal mucosal changes consistent with long-segment Ernandez's esophagus present in the lower third of the esophagus. The maximum longitudinal extent of these mucosal changes was 6 cm in length. Mucosa was biopsied with a cold forceps for histology. Diffuse moderate inflammation characterized by erythema was found in the gastric antrum. Biopsies were taken with a cold forceps for histology. A mild [Appearance] deformity was found in the duodenal bulb. Biopsies were taken with a cold forceps for histology. Impression: - Medium-sized hiatal hernia. - Esophageal mucosal changes consistent with long-segment Ernandez's esophagus. Biopsied. - Chronic gastritis. Biopsied. - Duodenal deformity. Narrowing of the bulb without visualized ulcer, tight curvature. Biopsied. Recommendation: - Discharge patient to home. - Resume previous diet. - Continue present medications. - Telephone my office for pathology results in 1 week. Ernandez's esophagus is very extensive and unremarkable. No protruding masses. Patient is already on omeprazole 40 mg daily. Will await pathology results Procedure Code(s): --- Professional --- 98603, Esophagogastroduodenoscopy, flexible, transoral; with biopsy, single or multiple Diagnosis Code(s): --- Professional --- K44.9, Diaphragmatic hernia without obstruction or gangrene K22.89, Other specified disease of esophagus K29.50, Unspecified chronic gastritis without bleeding K31.89, Other diseases of stomach and duodenum R10.84, Generalized abdominal pain CPT copyright 2021 [employer]. All rights reserved. The codes documented in this report are preliminary and upon propulsion generator repairer review may be revised to meet current compliance requirements. Abimael Evans MD 02/14/2023 10:58:45 AM This report has been signed electronically. Number of Addenda: 0 Note Initiated On: 02/14/2023 10:24 AM
--- NOTE | 2023-02-14 10:59 | OP.CCLET_ITS ---
02/14/2023 Wes Magallon Re : Upper GI endoscopy procedure for Libra Sheehan Sherita This procedure was performed on Tuesday, February 14, 2023. My impressions and recommendations are as follows: Impressions : - Medium-sized hiatal hernia. - Esophageal mucosal changes consistent with long-segment Ernandez's esophagus. Biopsied. - Chronic gastritis. Biopsied. - Duodenal deformity. Narrowing of the bulb without visualized ulcer, tight curvature. Biopsied. Recommendations : - Discharge patient to home. - Resume previous diet. - Continue present medications. - Telephone my office for pathology results in 1 week. Ernandez's esophagus is very extensive and unremarkable. No protruding masses. Patient is already on omeprazole 40 mg daily. Will await pathology results My findings are described in the full procedure note, which is enclosed. If I can be of further assistance, please feel free to contact me at Doctor phone number(s): Work: . Sincerely, Abimael Evans MD 02/14/2023 10:58:45 AM This report has been signed electronically.
[2023-02-14 11:00] VITALS: BP 130/62; BP 83/48; PULSE 64; RESP 16; O2SAT 92
[2023-02-14 11:05] VITALS: BP 116/63; BP 130/62; PULSE 64; RESP 16; O2SAT 93
[2023-02-14 11:09] VITALS: BP 113/65; BP 130/62; PULSE 64; RESP 16; TEMP 36.6; O2SAT 93
[2023-02-14 11:31] VITALS: BP 130/62
== END 2023-02-14 12:04 | disposition home or self-care (01) ==
LOC: EN 09:39 → AC 09:40
PROVIDERS: PCP Family Medicine; Referring Provider Family Medicine; Visit Provider Surgery
PROC: 0DJ08ZZ Inspection of Upper Intestinal Tract, Via Natural or Artificial Opening Endoscopic (ICD-10-PCS; CPT 43235; principal; 2023-02-14 10:40)
DX: D50.9 Iron deficiency anemia, unspecified (principal); M06.9 Rheumatoid arthritis, unspecified; J44.9 Chronic obstructive pulmonary disease, unspecified; R10.84 Generalized abdominal pain; K31.89 Other diseases of stomach and duodenum; Q87.40 Marfan syndrome, unspecified; Z80.0 Family history of malignant neoplasm of digestive organs; K80.20 Calculus of gallbladder without cholecystitis without obstruction; R14.0 Abdominal distension (gaseous); K44.9 Diaphragmatic hernia without obstruction or gangrene; K29.50 Unspecified chronic gastritis without bleeding; K57.30 Diverticulosis of large intestine without perforation or abscess without bleeding
CPT/HCPCS: 43239; 36416; 85610; 88305; 88313; 88341; 88342; J7120; J2405

== ENCOUNTER → 2023-06-09 | Outpatient (CLI) | payer MEDICARE, MEDICAID, SELFPAY ==
--- NOTE | 2023-06-09 15:04 | US_ITS ---
STUDY: THYROID ULTRASOUND REASON FOR EXAM: Female, 77 years old. Multiple thyroid nodules, goiter TECHNIQUE: Ultrasound evaluation of the thyroid was performed with real-time and static galan-scale imaging. COMPARISON: None. FINDINGS: RIGHT LOBE: The right lobe of the thyroid gland measures 4.8 x 1.5 x 1.0 cm. There is a homogeneous echotexture. Nodule 1:5 x 3 x 4 mm solid hypoechoic wider than tall smoothly marginated nodule with peripheral calcifications (TR 4) in the mid right lobe consistent with an adenoma. Nodule 2:9 x 8 x 3 mm solid hypoechoic wider than tall smoothly marginated nodule with no echogenic foci (TR 4) in the medial right lobe consistent with an adenoma. LEFT LOBE: The left lobe of the thyroid gland measures 5.6 x 1.3 x 1.5 cm. There is a homogeneous echotexture. Nodule 3:10 x 4 x 7 mm solid hypoechoic wider than tall smoothly marginated nodule with no echogenic foci (TR 4) in the anterior left lobe and follow-up ultrasound is recommended in one year. Nodule 4:11 x 7 x 10 mm hypoechoic wider than tall smoothly marginated nodule with no echogenic foci (TR 4) in the posterior left lobe and follow-up ultrasound is recommended in one year. Nodule 5:13 x 23 x 16 mm solid hypoechoic wider than tall smoothly margin nodule with no echogenic foci (TR 4) in the mid left lobe for which ultrasound-guided biopsy is recommended. ISTHMUS: The isthmus measures 2 mm thick. . The regional lymph nodes are normal. US/Thyroid IMPRESSION: Multinodular thyroid gland with dominant nodule in the left lobe for which ultrasound guided biopsy is recommended. Follow-up ultrasound is recommended in one year. Electronically Signed: Senthil Ye MD at 15:35 EST ,
--- OUTSIDE RECORDS SUMMARY | 2023-06-09 15:30 | XMS RPT_ITS | CCD ---
Author Name Unknown Address [address] [place] [address] Organization [facility] Care Team Providers Care Card Tape Converter Operator Name Role Phone AMBER MANNING Unavailable Unavailable Monroe Burden Unavailable Unavailable AMBER MANNING Unavailable Unavailable AMBER MANNING Unavailable Unavailable Monroe Burden Unavailable Unavailable Monroe Burden Unavailable Unavailable AMBER MANNING Unavailable Unavailable AMBER MANNING Unavailable Unavailable Wes Bonilla MD Primary Care Provider Mirtha TODD, Elisabeth Owens Unavailable Unavail able Junaid Arriaga Unavailable Santos Calvin Unavailable Mirtah TODD, Elisabeth Owens Unavailable Flaquito Mariee Unavailable [phone] Wes Bonilla MD Primary Care Provider Mirtha TODD, Elisabeth Owens Unavailable Junaid Arriaga Unavailable Nikunj, Jose Unavailable Flaquito Mariee Unavailable [phone] Wes Bonilla MD Unavailable Anastasiya MARKS, Mera Unavailable Erik Hassan RN Unavailable Wes Bonilla MD Unavailable [phone] Mirtha TODD, Elisabeth Owens Unavailable [phone] Junaid Arriaga Unavailable Mansi CalvinJose Unavailable Flaquito Mariee Unavailable Anastasiya MARKS, Mera Unavailable [phone] Mo TODD, Erik Unavailable Wes Bonilla MD Primary Care Provider Wes Bonilla MD Unavailable Wes Bonilla MD Primary Care Provider Mirtha RN, Elisabeth Owens Unavailable Junaid Arriaga Unavailable Santos Calvin Unavailable Flaquito Mariee Unavailable Wes Bonilla MD Unavailable Anastasiya MARKS, Mera Unavailable Niuknj MARKS, Santos Lubin Unavailable Mirtha RN, Elisabeth Owens Unavailable [phone] Mo TODD, Erik Unavailable Josefina TODD, Michelle Unavailable Unavailable Nikunj MARKS, Santos Lubin Unavailable Flaquito Mariee Unavailable Anastasiya MARKS, Mera Unavailable [phone] Enrrique TODD, Jolene Mary Unavailable Unavailtrina Mariee MD, Flaquito Ramires Unavailable [phone] Flaquito Mariee MD Unavailable Enrrique RN, Jolene Mary Unavailable Unavailtrina Rocha RN, Michelle Unavailable Unavailable Mirtha TODD, Elisabeth Owens Unavailable Corina MARKS, Junaid F Unavailable WES BONILLA Referring Unavailable WES BONILLA Primary Care Unavailable WES BONILLA Referring Unavailable WES BONILLA Primary Care Unavailable WES BONILLA Primary Care Unavailable WES BONILLA Referring Unavailable WES BONILLA Primary Care Unavailable WES BONILLA Primary Care Unavailable Myah MEHTA Referring Unavailable WES BONILLA Referring Unavailable WES BONILLA Primary Care Unavailable WES BONILLA Referring Unavailable KORI, WES Tyler Primary Care Unavailable KORI, WES Tyler Referring Unavailable KORI, WES Tyler Primary Care Unavailable KORI, WES Tyler Primary Care Unavailable KORI, WES Tyler Primary Care Unavailable KORI, WES Tyler Attending Unavailable KORI, WES Tyler Primary Care Unavailable KORI, WES Tyler Primary Care Unavailable Myah MEHTA Referring Unavailable KORI, WES Tyler Primary Care Unavailable Myah MEHTA Referring Unavailable KORI, WES Tyler Primary Care Unavailable Myah MEHTA Referring Unavailable KORI, WES Tyler Primary Care Unavailable KORI, WES Tyler Primary Care Unavailable KORI, WES Tyler Primary Care Unavailable KORI, WES Tyler Primary Care Unavailable KORI, WES Tyler Primary Care Unavailable KORI, WES Tyler Primary Care Unavailable SEAN BULLOCK Referring Unavailable KORI, WES Tyler Primary Care Unavailable KORI, WES Tyler Primary Care Unavailable Myah MEHTA Attending Unavailable KORI, WES Tyler Attending Unavailable KORI, WES Tyler Primary Care Unavailable KORI, WES Tyler Primary Care Unavailable KORI, WES Tyler Attending Unavailable KORI, WES Tyler Primary Care Unavailable KORI, WES Tyler Referring Unavailable KORI, WES Tyler Primary Care Unavailable KORI, WES Tyler Primary Care Unavailable KORI, WES Tyler Referring Unavailable KORI, WES Tyler Primary Care Unavailable KORI, WES Tyler Primary Care Unavailable KORI, WES Tyler Primary Care Unavailable KORI, WES Tyler Primary Care Unavailable Myah MEHTA Referring Unavailable KORI, WES Tyler Referring Unavailable KORI, WES Tyler Primary Care Unavailable KORI, WES Tyler Referring Unavailable KORI, WES Tyler Primary Care Unavailable KORI, WES Tyler Primary Care Unavailable KORI, WES Tyler Primary Care Unavailable KORI, WES Tyler Primary Care Unavailable KORI, WES Tyler Primary Care Unavailable KORI, WES Tyler Referring Unavailable KORI, WES Tyler Primary Care Unavailable KORI, WES Tyler Primary Care Unavailable Myah MEHTA Referring Unavailable KORI, WES Tyler Primary Care Unavailable KORI, WES Tyelr Attending Unavailable KORI, WES Tyler Primary Care Unavailable KORI, WES Tyler Referring Unavailable KORI, WES Tyler Primary Care Unavailable KORI, WES Tyler Primary Care Unavailable KORI, WES Tyler Primary Care Unavailable Myah MEHTA Referring Unavailable KORI, WES Tyler Referring Unavailable KORI, WES Tyler Primary Care Unavailable KORI, WES Tyler Primary Care Unavailable KORI, WES Tyler Attending Unavailable KORI, WES Tyler Primary Care Unavailable Allergies Allergy Classification Reported Allergen(s) Allergy Type Date of Onset Reaction(s) Facility (20 sources) ibuprofen; 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: [IBUPROFEN] Drug Allergy 9 Other: See Comments [facility] (20 sources) Latex; 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: [LATEX] Propensity to adverse reactions (disorder) 9 Rash [facility] (20 sources) rosuvastatin; 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: [ROSUVASTATIN CALCIUM] Drug Allergy 1 Other: See Comments [facility] (20 sources) PNEUMOC 13-CHU CONJ-DIP CR(PF); 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: [PNEUMOC 13-CHU CONJ-DIP CR(PF)] Propensity to adverse reactions (disorder) 6 Rash [facility] Medications Current Medications Medication Drug Class(es) Dates Sig (Normalized) Sig (Original) ferrous sulfate 325 mg oral tablet (3 sources) Start: 11-09-2022 End: 05-08-2023 take 1 tablet by mouth once daily ferrous sulfate 325 mg (65 mg iron) tablet Indications: Iron deficiency Take 1 tablet by mouth once daily. 30 tablet 5 11/09/2022 05/08/2023 Active Completed/Discontinued Medications Medication Drug Class(es) Dates Sig (Normalized) Sig (Original) [id number] 200 actuat albuterol 0.09 mg/actuat metered dose inhaler (20 sources) beta2-Adrenergic Agonist Start: 05-05-2020 albuterol HFA (PROVENTIL HFA, VENTOLIN HFA) 90 mcg/actuation inhaler [The details of the medication are not available because there are pending changes by a home health clinician.] 1 g 1 05/05/2020 Active Problems Active Problems Problem Classification Problem Date Documented Da te Episodic/Chronic Cardiac dysrhythmias (20 sources) Paroxysmal atrial fibrillation; 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: [Paroxysmal atrial fibrillation] 09-23-2020 Chronic Chronic kidney disease (20 sources) Chronic kidney disease stage 3; 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: [Stage 3 chronic kidney disease] Onset: 3 11-08-2022 Chronic Chronic obstructive pulmonary disease and bronchiectasis (20 sources) Centriacinar emphysema; 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: [Centrilobular emphysema] Onset: 4 03-23-2020 Chronic Coagulation and hemorrhagic disorders (2 sources) Blood coagulation disorder; 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: [Coagulation defect, unspecified] Onset: 3 05-01-2023 Chronic Congestive heart failure; nonhypertensive (20 sources) Acute combined systolic and diastolic heart failure; 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: [Acute combined systolic (congestive) and diastolic (congestive) heart failure] Onset: 2 Chronic Deficiency and other anemia (1 source) Iron deficiency anemia, unspecified; 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: [Iron deficiency anemia, unspecified iron deficiency anemia type] Onset: 3 Episodic Diseases of white blood cells (9 sources) Leukocytosis; 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: [Elevated white blood cell count, unspecified] Onset: 2 09-19-2022 Chronic Disorders of lipid metabolism (20 sources) Hyperlipidemia; 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: [Hyperlipidemia, unspecified] Onset: 1 05-31-2021 Chronic Esophageal disorders (20 sources) Gastroesophageal reflux disease; 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: [Gastro-esophageal reflux disease without esophagitis] Onset: 3 12-08-2008 Chronic Essential hypertension (20 sources) Essential (primary) hypertension; 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: [Essential hypertension] Onset: 6 09-23-2020 Chronic Heart valve disorders (20 sources) Mitral valve regurgitation; 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: [Nonrheumatic mitral (valve) insufficiency] Onset: 2 06-18-2021 Chronic Other acquired deformities (6 sources) Compression fracture of vertebral column; 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: [Deforming dorsopathy, unspecified] Episodic Other and unspecified benign neoplasm (1 source) History of polyp of colon; 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: [Personal history of colonic polyps] Episodic Other congenital anomalies (20 sources) Marfan's syndrome; 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: [Marfan's syndrome, unspecified] 12-08-2008 Chronic Other diseases of kidney and ureters (2 sources) Renal mass; 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: [Other specified disorders of kidney and ureter] Chronic Other diseases of kidney and ureters (1 source) Other specified disorders of kidney and ureter; 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: [Renal mass] Onset: 3 Chronic Other diseases of kidney and ureters (4 sources) Renal impairment; 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: [Disorder of kidney and ureter, unspecified] Episodic Other gastrointestinal disorders (1 source) Swollen abdomen; 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: [Generalized intra-abdominal and pelvic swelling, mass and lump] Episodic Other hematologic conditions (1 source) Microcytosis; 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: [Other abnormality of red blood cells] Episodic Other liver diseases (9 sources) Chronic passive congestion of liver; 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: [Chronic passive congestion of liver] Onset: 2 09-19-2022 Chronic Other liver diseases (2 sources) Liver mass; 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: [Hepatomegaly, not elsewhere classified] Episodic Other liver diseases (3 sources) Alkaline phosphatase raised; 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: [Abnormal levels of other serum enzymes] Episodic Other lower respiratory disease (1 source) Rib pain; 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: [Pleurodynia] Episodic Other lower respiratory disease (1 source) History of pleural effusion; 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: [Personal history of other diseases of the respiratory system] Episodic Other nutritional; endocrine; and metabolic disorders (9 sources) Hypophosphatemia; 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: [Other disorders of phosphorus metabolism] Onset: 2 09-19-2022 Chronic Other screening for suspected conditions (not mental disorders or infectious disease) (9 sources) Deviation of international normalized ratio from target range; 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: [Abnormal coagulation profile] Onset: 3 09-19-2022 Episodic Other skin disorders (1 source) Eruption; 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: [Rash and other nonspecific skin eruption] 01-13-2023 Episodic Pulmonary heart disease (20 sources) Pulmonary hypertension; 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: [Pulmonary hypertension, unspecified] Onset: 1 05-11-2021 Chronic Respiratory failure; insufficiency; arrest (adult) (1 source) Chronic hypoxemic respiratory failure; 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: [Chronic respiratory failure with hypoxia] Chronic Rheumatoid arthritis and related disease (20 sources) Rheumatoid arthritis; 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: [Rheumatoid arthritis, unspecified] Onset: 1 Chronic Thyroid disorders (20 sources) Thyroid nodule; 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: [Nontoxic single thyroid nodule] Onset: 0 05-11-2020 Chronic Unclassified (1 source) Unknown / UNK(Unknown) Onset: 8 Unclassified (1 source) Chronic atrial fibrillation, unspecified; 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: [Atrial fibrillation, chronic (HCC)] Onset: 3 Viral infection (1 source) Herpes zoster without complication; 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: [Zoster without complications] 01-13-2023 Episodic Past or Other Problems Problem Classification Problem Date Documented Da te Episodic/Chronic Abdominal pain (2 sources) Epigastric pain; 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: [Epigastric pain] Onset: 09-19-2022 Episodic Administrative/social admission (20 sources) Patient encounter status; 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: [Persons encountering health services in other specified circumstances] Onset: 07-20-2021 07-24-2021 Episodic Bacterial infection; unspecified site (10 sources) Bacteremia; 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: [Bacteremia] Onset: 02-03-2022 Episodic Biliary tract disease (20 sources) Cholelithiasis without obstruction; 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: [Calculus of gallbladder without cholecystitis without obstruction] Onset: 11-08-2022 11-08-2022 Episodic Deficiency and other anemia (6 sources) Iron deficiency anemia; 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: [Iron deficiency anemia, unspecified] Onset: 01-10-2023 05-10-2023 Episodic Diabetes mellitus without complication (20 sources) Prediabetes; 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: [Prediabetes] Onset: 09-25-2020 09-25-2020 Episodic Fluid and electrolyte disorders (20 sources) Dehydration; 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: [Dehydration] Onset: 07-09-2021 09-19-2022 Episodic Neoplasms of unspecified nature or uncertain behavior (9 sources) Neoplasm of uncertain behavior of left kidney; 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] Onset: 09-23-2021 09-19-2022 Episodic Nutritional deficiencies (1 source) Iron deficiency; 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: [Iron deficiency] Onset: 12-23-2022 Episodic Other acquired deformities (1 source) Deforming dorsopathy, unspecified; 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: [Compression deformity of vertebra] Onset: 09-19-2022 Episodic Other aftercare (20 sources) Long-term current use of anticoagulant; 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: [nursing home (current) use of anticoagulants] Onset: 06-23-2015 06-23-2015 Episodic Other aftercare (1 source) nursing home (current) use of anticoagulants; 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: [Chronic anticoagulation] Onset: 06-23-2015 Episodic Other connective tissue disease (20 sources) History of polymyalgia rheumatica; 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: [Personal history of other diseases of the musculoskeletal system and connective tissue] Onset: 01-19-2011 03-23-2020 Episodic Other diseases of kidney and ureters (20 sources) Renal infarction; 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: [Ischemia and infarction of kidney] Onset: 04-19-2022 04-19-2022 Episodic Other diseases of kidney and ureters (9 sources) Acquired renal cystic disease; 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: [Cyst of kidney, acquired] Onset: 07-22-2021 09-19-2022 Episodic Other diseases of kidney and ureters (9 sources) Kidney disease; 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: [Ischemia and infarction of kidney] Onset: 07-22-2021 09-19-2022 Episodic Other gastrointestinal disorders (6 sources) Abdominal bloating; 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: [Abdominal distension (gaseous)] Onset: 01-10-2023 Episodic Other gastrointestinal disorders (1 source) Generalized intra-abdominal and pelvic swelling, mass and lump; 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: [Abdominal swelling, generalized] Onset: 09-19-2022 Episodic Other hematologic conditions (1 source) Other abnormality of red blood cells; 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: [Microcytosis] Onset: 11-08-2022 Episodic Other injuries and conditions due to external causes (20 sources) H/O: vertebral fracture; 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: [Personal history of (healed) traumatic fracture] Onset: 11-08-2022 11-08-2022 Episodic Other liver diseases (9 sources) Enzyme level - finding; 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: [Abnormal levels of other serum enzymes] Onset: 11-11-2021 09-19-2022 Episodic Other liver diseases (9 sources) Elevated liver enzymes level; 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: [Abnormal levels of other serum enzymes] Onset: 11-11-2021 09-19-2022 Episodic Other liver diseases (1 source) Abnormal levels of other serum enzymes; 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: [Elevated alkaline phosphatase level] Onset: 09-29-2022 Episodic Other liver diseases (1 source) Hepatomegaly, not elsewhere classified; 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: [Liver mass] Onset: 09-05-2022 Episodic Other lower respiratory disease (20 sources) Nodule of lung; 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: [Solitary pulmonary nodule] Onset: 06-06-2019 09-25-2020 Episodic Other lower respiratory disease (9 sources) Hypoxemia; 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: [Hypoxemia] Onset: 06-23-2021 09-19-2022 Episodic Other lower respiratory disease (9 sources) Hypoxia; 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: [Hypoxemia] Onset: 06-23-2021 09-19-2022 Episodic Other lower respiratory disease (9 sources) Dyspnea; 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: [Shortness of breath] Onset: 09-16-2021 09-19-2022 Episodic Other lower respiratory disease (20 sources) H/O: respiratory disease; 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: [Personal history of other diseases of the respiratory system] Onset: 11-08-2022 11-08-2022 Episodic Pathological fracture (2 sources) Pathological fracture; 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: [Pathological fracture, other site, initial encounter for fracture] Onset: 08-18-2022 08-18-2022 Episodic Pleurisy; pneumothorax; pulmonary collapse (20 sources) Pleural effusion; 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: [Pleural effusion, not elsewhere classified] Onset: 05-05-2020 Episodic Pneumonia (except that caused by tuberculosis or sexually transmitted disease) (9 sources) Pneumonia; 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: [Pneumonia, unspecified organism] Onset: 02-03-2022 09-19-2022 Episodic Respiratory failure; insufficiency; arrest (adult) (9 sources) Acute respiratory failure; 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: [Acute respiratory failure, unspecified whether with hypoxia or hypercapnia] Onset: 07-22-2021 09-19-2022 Episodic Spondylosis; intervertebral disc disorders; other back problems (2 sources) Backache; 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: [Dorsalgia, unspecified] Onset: 07-14-2022 Episodic Results Test Name Value Interpretation Reference Range Facil ity Vital Signs Date Time Vital Sign Value Performing Clinician Faci lity 05-10-2023 13:43-0500 Diastolic blood pressure 72 mm[Hg] Wes Bonilla MD Work Phone: [facility] 05-10-2023 13:43-0500 Systolic blood pressure 106 mm[Hg] Wes Bonilla MD Work Phone: [facility] 05-10-2023 13:29-0500 Body height 154.9 cm Wes Bonilla MD Work Phone: [facility] 05-10-2023 13:29-0500 Body weight 56.34 kg Wes Bonilla MD Work Phone: [facility] 05-10-2023 13:29-0500 Heart rate 70 /min Wes Bonilla MD Work Phone: [facility] 05-10-2023 13:29-0500 SaO2% (BldA) [Mass fraction] 94 % Wes Bonilla MD Work Phone: [facility] 01-13-2023 18:59-0400 Body temperature 97.5 [degF] Shanta Logan APRN.PATIENT ACCESS DIRECTOR Work Phone: [facility] 01-13-2023 18:59-0400 Body weight 58.6 kg Shanta Logan APRN.PATIENT ACCESS DIRECTOR Work Phone: [facility] 01-13-2023 18:59-0400 Diastolic blood pressure 71 mm[Hg] Shanta Logan APRN.PATIENT ACCESS DIRECTOR Work Phone: [facility] 01-13-2023 18:59-0400 Heart rate 61 /min Shanta Logan APRN.PATIENT ACCESS DIRECTOR Work Phone: [facility] 01-13-2023 18:59-0400 Respiratory rate 18 /min Shanta Logan APRN.PATIENT ACCESS DIRECTOR Work Phone: [facility] 01-13-2023 18:59-0400 SaO2% (BldA) [Mass fraction] 94 % Shanta Logan APRN.PATIENT ACCESS DIRECTOR Work Phone: [facility] 01-13-2023 18:59-0400 Systolic blood pressure 142 mm[Hg] Shanta Logan APRN.PATIENT ACCESS DIRECTOR Work Phone: [facility] 11-08-2022 15:28-0400 Body height 154.9 cm Wes Bonilla MD Work Phone: [facility] 11-08-2022 15:28-0400 Body weight 60.33 kg Wes Bonilla MD Work Phone: [facility] 11-08-2022 15:28-0400 Diastolic blood pressure 56 mm[Hg] Wes Bonilla MD Work Phone: [facility] 11-08-2022 15:28-0400 Heart rate 57 /min Wes Bonilla MD Work Phone: [facility] 11-08-2022 15:28-0400 SaO2% (BldA) [Mass fraction] 95 % Wes Bonilla MD Work Phone: [facility] 11-08-2022 15:28-0400 Systolic blood pressure 122 mm[Hg] Wes Bonilla MD Work Phone: [facility] 09-19-2022 14:08-0400 Body height 154.9 cm NA Mehta PA-C Work Phone: [facility] 09-19-2022 14:08-0400 Body weight 60.33 kg NA Mehta PA-C Work Phone: [facility] 09-19-2022 14:08-0400 Diastolic blood pressure 84 mm[Hg] NA Mehta PA-C Work Phone: [facility] 09-19-2022 14:08-0400 Heart rate 54 /min NA Mehta PA-C Work Phone: [facility] 09-19-2022 14:08-0400 SaO2% (BldA) [Mass fraction] 96 % NA Mehta PA-C Work Phone: [facility] 09-19-2022 14:08-0400 Systolic blood pressure 110 mm[Hg] NA Mehta PA-C Work Phone: [facility] 09-01-2022 14:45-0400 Body weight 59.88 kg Wes Bonilla MD Work Phone: [facility] 09-01-2022 14:45-0400 Diastolic blood pressure 62 mm[Hg] Wes Bonilla MD Work Phone: [facility] 09-01-2022 14:45-0400 Heart rate 62 /min Wes Bonilla MD Work Phone: [facility] 09-01-2022 14:45-0400 SaO2% (BldA) [Mass fraction] 96 % Wes Bonilla MD Work Phone: [facility] 09-01-2022 14:45-0400 Systolic blood pressure 122 mm[Hg] Wes Bonilla MD Work Phone: [facility] 07-28-2022 13:46-0500 Body weight 62.14 kg Wes Bonilla MD Work Phone: [facility] 07-28-2022 13:46-0500 Diastolic blood pressure 62 mm[Hg] Wes Bonilla MD Work Phone: [facility] 07-28-2022 13:46-0500 Heart rate 56 /min Wes Bonilla MD Work Phone: [facility] 07-28-2022 13:46-0500 SaO2% (BldA) [Mass fraction] 95 % Wes Bonilla MD Work Phone: [facility] 07-28-2022 13:46-0500 Systolic blood pressure 104 mm[Hg] Wes Bonilla MD Work Phone: [facility] 06-29-2022 15:29-0500 Body temperature 97.5 [degF] Shanta Logan APRN.PATIENT ACCESS DIRECTOR Work Phone: [facility] 06-29-2022 15:29-0500 Body weight 62.23 kg Shanta Logan APRN.PATIENT ACCESS DIRECTOR Work Phone: [facility] 06-29-2022 15:29-0500 Diastolic blood pressure 60 mm[Hg] Shanta Logan APRN.PATIENT ACCESS DIRECTOR Work Phone: [facility] 06-29-2022 15:29-0500 Heart rate 90 /min Shanta Logan APRN.PATIENT ACCESS DIRECTOR Work Phone: [facility] 06-29-2022 15:29-0500 Respiratory rate 21 /min Shanta Logan APRN.PATIENT ACCESS DIRECTOR Work Phone: [facility] 06-29-2022 15:29-0500 SaO2% (BldA) [Mass fraction] 94 % Shanta Logan APRN.PATIENT ACCESS DIRECTOR Work Phone: [facility] 06-29-2022 15:29-0500 Systolic blood pressure 132 mm[Hg] Shanta Logan APRN.PATIENT ACCESS DIRECTOR Work Phone: [facility] 05-17-2022 14:25-0500 Body temperature 97.81 [degF] Shannon Chiu APRN.PATIENT ACCESS DIRECTOR Work Phone: [facility] 05-17-2022 14:25-0500 Body weight 61.96 kg Shannon Chiu DIVINITY PROFESSOR.PATIENT ACCESS DIRECTOR Work Phone: [facility] 05-17-2022 14:25-0500 Diastolic blood pressure 82 mm[Hg] Shannon Aram DIVINITY PROFESSOR.PATIENT ACCESS DIRECTOR Work Phone: [facility] 05-17-2022 14:25-0500 Heart rate 58 /min Shannon Aram DIVINITY PROFESSOR.PATIENT ACCESS DIRECTOR Work Phone: [facility] 05-17-2022 14:25-0500 Respiratory rate 18 /min Shannon Aram DIVINITY PROFESSOR.PATIENT ACCESS DIRECTOR Work Phone: [facility] 05-17-2022 14:25-0500 SaO2% (BldA) [Mass fraction] 94 % Shannon Aram DIVINITY PROFESSOR.PATIENT ACCESS DIRECTOR Work Phone: [facility] 05-17-2022 14:25-0500 Systolic blood pressure 132 mm[Hg] Shannon Aram DIVINITY PROFESSOR.PATIENT ACCESS DIRECTOR Work Phone: [facility] 04-19-2022 11:57-0500 Body height 154.9 cm Wes Bonilla MD Work Phone: [facility] 04-19-2022 11:57-0500 Body weight 61.05 kg Wes Bonilla MD Work Phone: [facility] 04-19-2022 11:57-0500 Diastolic blood pressure 56 mm[Hg] Wes Bonilla MD Work Phone: [facility] 04-19-2022 11:57-0500 Heart rate 61 /min Wes Bonilla MD Work Phone: [facility] 04-19-2022 11:57-0500 SaO2% (BldA) [Mass fraction] 97 % Wes Bonilla MD Work Phone: [facility] 04-19-2022 11:57-0500 Systolic blood pressure 110 mm[Hg] Wes Bonilla MD Work Phone: [facility] 03-15-2022 14:17-0400 Body weight 59.42 kg CHAPARRITA Mehta PA-C Work Phone: [facility] 03-15-2022 14:17-0400 Diastolic blood pressure 50 mm[Hg] NA Tyson WANG-Kranthi Work Phone: [facility] 03-15-2022 14:17-0400 Heart rate 88 /min NA Mehta PA-C Work Phone: [facility] 03-15-2022 14:17-0400 Respiratory rate 20 /min NA Mehta PA-C Work Phone: [facility] [place] 03-15-2022 14:17-0400 SaO2% (BldA) [Mass fraction] 98 % NA Mehta PA-C Work Phone: [facility] 03-15-2022 14:17-0400 Systolic blood pressure 108 mm[Hg] NA Mehta PA-C Work Phone: [facility] 03-02-2022 14:02-0400 Body temperature 97.7 [degF] Tia Most RN Work Phone: [facility] 03-02-2022 14:02-0400 Body weight 58.51 kg Tia Most RN Work Phone: [facility] 03-02-2022 14:02-0400 Diastolic blood pressure 60 mm[Hg] Tia Most RN Work Phone: [facility] 03-02-2022 14:02-0400 Heart rate 56 /min Tia Most RN Work Phone: [facility] 03-02-2022 14:02-0400 Respiratory rate 16 /min Tia Most RN Work Phone: [facility] 03-02-2022 14:02-0400 SaO2% (BldA) [Mass fraction] 96 % Tia Most RN Work Phone: [facility] 03-02-2022 14:02-0400 Systolic blood pressure 118 mm[Hg] Tia Most RN Work Phone: [facility] 02-24-2022 12:28-0400 Body temperature 97.81 [degF] Tia Most RN Work Phone: [facility] 02-24-2022 12:28-0400 Body weight 58.06 kg Tia Most RN Work Phone: [facility] 02-24-2022 12:28-0400 Diastolic blood pressure 64 mm[Hg] Tia Harding RN Work Phone: [facility] 02-24-2022 12:28-0400 Heart rate 64 /min Tia Harding RN Work Phone: [facility] 02-24-2022 12:28-0400 Respiratory rate 16 /min Tia Harding RN Work Phone: [facility] 02-24-2022 12:28-0400 SaO2% (BldA) [Mass fraction] 95 % Tiamiladys Harding RN Work Phone: [facility] 02-24-2022 12:28-0400 Systolic blood pressure 118 mm[Hg] Tia Harding RN Work Phone: [facility] 02-18-2022 13:39-0400 Diastolic blood pressure 56 mm[Hg] Manju Larson PT Work Phone: [facility] 02-18-2022 13:39-0400 Heart rate 56 /min Manju Larson PT Work Phone: [facility] 02-18-2022 13:39-0400 SaO2% (BldA) [Mass fraction] 96 % Manju Larson PT Work Phone: [facility] 02-18-2022 13:39-0400 Systolic blood pressure 120 mm[Hg] Manju Larson PT Work Phone: [facility] 02-18-2022 13:15-0400 Body temperature 97.7 [degF] Manju Larson PT Work Phone: [facility] 02-18-2022 13:15-0400 Body weight 58.06 kg Manju Larson PT Work Phone: [facility] 02-18-2022 13:15-0400 Respiratory rate 16 /min Manju Larson PT Work Phone: [facility] 02-15-2022 13:35-0400 Body temperature 97.5 [degF] Tia RN Work Phone: [facility] 02-15-2022 13:35-0400 Body weight 58.51 kg Gemma Carter ARMATURE WINDER REPAIR Work Phone: [facility] 02-15-2022 13:35-0400 Diastolic blood pressure 52 mm[Hg] Tiamiladys Harding RN Work Phone: [facility] 02-15-2022 13:35-0400 Heart rate 60 /min Tiamiladys Harding RN Work Phone: [facility] 02-15-2022 13:35-0400 Respiratory rate 16 /min Tiamiladys Harding RN Work Phone: [facility] 02-15-2022 13:35-0400 SaO2% (BldA) [Mass fraction] 95 % Tia RN Work Phone: [facility] 02-15-2022 13:35-0400 Systolic blood pressure 118 mm[Hg] Tia RN Work Phone: [facility] 02-15-2022 13:10-0400 Heart rate 60 /min Gemma Carter ARMATURE WINDER REPAIR Work Phone: [facility] 02-15-2022 13:10-0400 SaO2% (BldA) [Mass fraction] 95 % Gemma Carter ARMATURE WINDER REPAIR Work Phone: [facility] 02-15-2022 13:00-0400 Body temperature 97.7 [degF] Gemma Carter ARMATURE WINDER REPAIR Work Phone: [facility] 02-15-2022 13:00-0400 Diastolic blood pressure 58 mm[Hg] Gemma Carter ARMATURE WINDER REPAIR Work Phone: [facility] 02-15-2022 13:00-0400 Respiratory rate 18 /min Gemma Carter ARMATURE WINDER REPAIR Work Phone: [facility] 02-15-2022 13:00-0400 Systolic blood pressure 110 mm[Hg] Gemma Carter ARMATURE WINDER REPAIR Work Phone: [facility] 02-11-2022 11:00-0400 Body weight 58.06 kg Manju SteinhunterSebastian PT Work Phone: [facility] 02-11-2022 11:00-0400 Heart rate 60 /min Manju Larson PT Work Phone: [facility] 02-11-2022 11:00-0400 SaO2% (BldA) [Mass fraction] 88 % Manju Larson PT Work Phone: [facility] 02-11-2022 10:50-0400 Body temperature 98.2 [degF] Manju Larson PT Work Phone: [facility] 02-11-2022 10:50-0400 Diastolic blood pressure 60 mm[Hg] Manju Larson PT Work Phone: [facility] 02-11-2022 10:50-0400 Respiratory rate 16 /min Manju SaritahunterSebastian PT Work Phone: [facility] 02-11-2022 10:50-0400 Systolic blood pressure 128 mm[Hg] Manju SteinhunterSebastian PT Work Phone: [facility] 02-09-2022 12:29-0400 Body temperature 98.01 [degF] Maureen Bowser RN Work Phone: [facility] 02-09-2022 12:29-0400 Body weight 59.88 kg Maureen Bowser RN Work Phone: [facility] 02-09-2022 12:29-0400 Diastolic blood pressure 58 mm[Hg] Maureen Bowser RN Work Phone: [facility] 02-09-2022 12:29-0400 Heart rate 58 /min Maureen Bowser RN Work Phone: [facility] 02-09-2022 12:29-0400 Respiratory rate 20 /min Maureen Bowser RN Work Phone: [facility] 02-09-2022 12:29-0400 SaO2% (BldA) [Mass fraction] 94 % Maureen Bowser RN Work Phone: [facility] 02-09-2022 12:29-0400 Systolic blood pressure 128 mm[Hg] Maureen Bowser RN Work Phone: [facility] 01-14-2022 13:32-0400 Body weight 60.33 kg Dalila Haagen DIVINITY PROFESSOR.PATIENT ACCESS DIRECTOR Work Phone: [facility] 01-14-2022 13:32-0400 Diastolic blood pressure 60 mm[Hg] Dalila Haagen DIVINITY PROFESSOR.PATIENT ACCESS DIRECTOR Work Phone: [facility] 01-14-2022 13:32-0400 Heart rate 52 /min Dalila Haagen DIVINITY PROFESSOR.PATIENT ACCESS DIRECTOR Work Phone: [facility] 01-14-2022 13:32-0400 Respiratory rate 18 /min Dalila Haagen DIVINITY PROFESSOR.PATIENT ACCESS DIRECTOR Work Phone: [facility] 01-14-2022 13:32-0400 SaO2% (BldA) [Mass fraction] 95 % Dalila Haagen DIVINITY PROFESSOR.PATIENT ACCESS DIRECTOR Work Phone: [facility] 01-14-2022 13:32-0400 Systolic blood pressure 110 mm[Hg] Dalila Haagen DIVINITY PROFESSOR.PATIENT ACCESS DIRECTOR Work Phone: [facility] 10-04-2021 15:00-0400 Heart rate 60 /min Wes Bonilla MD Work Phone: [facility] 10-04-2021 14:36-0400 Body weight 59.42 kg Wes Bonilla MD Work Phone: [facility] 10-04-2021 14:36-0400 Diastolic blood pressure 76 mm[Hg] Wes Bonilla MD Work Phone: [facility] 10-04-2021 14:36-0400 Respiratory rate 16 /min Wes Bonilla MD Work Phone: [facility] 10-04-2021 14:36-0400 SaO2% (BldA) [Mass fraction] 96 % Wes Bonilla MD Work Phone: [facility] 10-04-2021 14:36-0400 Systolic blood pressure 118 mm[Hg] Wes Bonilla MD Work Phone: [facility] Encounters Encounter Date Encounter Type Care Provider Facility Start: 05-25-2023 End: 05-25-2023 ambulatory Jolene Emery RN Marketing Graphics Specialist Man agement Procedures Date Procedure Procedure Detail Performing Clinician Start: 10-20-2022 Bone &/joint imaging whole body M Sean WANG-C Work Phone: Start: 09-19-2022 H/O: hysterectomy History of hysterectomy NA Mehta PA-C Work Phone: Start: 09-19-2022 H/O: surgery History of surgical procedure NA Mehta PA-C Work Phone: Start: 09-05-2022 Us abdominal real time w/image documentation Wes Bonilla MD Work Phone: Start: 08-18-2022 Mri spinal canal thoracic w/o contrast matrl M Sean WANG-C Work Phone: Start: 05-17-2022 Us soft tissue head & neck real time imge docm Wes Bonilla MD Work Phone: Start: 04-19-2022 PROTHROMBIN TIME/PT [facility] Provider Start: 02-09-2022 INR in Platelet poor plasma by Coagulation assay [facility] Provider Start: 01-14-2022 Adult depression screening assessment Dalila Jensen APRN.PATIENT ACCESS DIRECTOR Work Phone: Start: 09-16-2021 PROTHROMBIN TIME/PT [facility] Provider Start: 08-25-2021 INR in Platelet poor plasma by Coagulation assay [facility] Provider Start: 08-02-2021 PROTHROMBIN TIME/PT [facility] Provider Start: 05-11-2021 Adult depression screening assessment Wes Bonilla MD Work Phone: Start: 10-16-2014 Colonoscopy Wes Bonilla MD Work Phone: Plan of Treatment Date Care Activity Detail Author Start: 05-10-2026 Diabetes Screening Diabetes Screenin g [facility] Start: 04-02-2026 LIPID SCREEN LIPID SCREEN [facility] Start: 11-08-2025 DIABETES SCREEN DIABETES SCREEN [facility] Start: 11-08-2025 Diabetes Screening Diabetes Screenin g [facility] Start: 09-19-2025 DIABETES SCREEN DIABETES SCREEN [facility] Start: 07-20-2025 Urine microalbumin profile [facility] Start: 05-05-2025 DIABETES SCREEN DIABETES SCREEN [facility] Start: 04-19-2025 DIABETES SCREEN DIABETES SCREEN [facility] Start: 02-11-2025 DIABETES SCREEN DIABETES SCREEN [facility] Start: 02-03-2025 DIABETES SCREEN DIABETES SCREEN [facility] Start: 10-18-2024 DIABETES SCREEN DIABETES SCREEN [facility] Start: 10-04-2024 DIABETES SCREEN DIABETES SCREEN [facility] Start: 08-25-2024 DIABETES SCREEN DIABETES SCREEN [facility] Start: 05-10-2024 Annual PCP Team Rental Sales Agent gennaro Disease Visit Annual PCP Team Chronic Disease Visit [facility] Start: 05-10-2024 BP Controlled (<130/80) BP Controlle d (<130/80) [facility] Start: 05-10-2024 Creatinine measurement Serum Creatin ine [facility] Start: 05-10-2024 RSV Vaccine (1 - 1-d ose 60+ series) RSV Vaccine (1 - 1-dose 60+ series) [facility] Immunizations Immunization Date Immunization Notes Care Provider Mireille lake 05-08-2018 influenza virus vacc ine, unspecified formulation Wes Bonilla MD Work Phone: [facility] 07-20-2015 pneumococcal conjuga te vaccine, 13 valent Wes Bonilla MD Work Phone: [facility] 07-20-2015 tetanus toxoid, redu perlita diphtheria toxoid, and acellular pertussis vaccine, adsorbed Wes Bonilla MD Work Phone: [facility] 04-16-2014 influenza, high dose seasonal, preservative-free Wes Bonilla MD Work Phone: [facility] 08-15-2011 pneumococcal polysaccharide vaccine, 23 valent Wes Bonilla MD Work Phone: [facility] Payers Date Payer Category Payer Medicaid [facility] MEDICAID MYC ARE [facility] MEDICAID [id number] 2022-Present [phone] [address] [place] [address] Medicaid [id number] 2022 Medicare [id number] 2021 Medicare [id number] 2021 Medicare [employer] MEDICARE [employer] MEDICARE PPO [id number] 2021-Present [phone] [address] [address] [place] [address] PPO [id number] 2016 Medicare [id number] Social History Date Type Detail Facility Start: [facility]22 [facility] Work Phone: Start: 08-25-2021 End: 05-10-2023 Alcohol intake Current non-drinker of alcohol (finding) [facility] Start: 1945 Sex Assigned At Not on file [facility] Start: 08-15-2021 End: 04-19-2022 Exposure to SARS-CoV-2 (event) Not sure [facility] Start: 01-14-2022 Tobacco use and exposure Smokeless tobacco non-user [facility] Start: 01-14-2022 Tobacco Comment Spouse smoked cigars in home until about 2003. [facility] Start: 02-02-2022 History SDOH Financial 5 [facility] Start: 02-02-2022 History SDOH Food Worry 1 [facility] Start: 02-02-2022 History SDOH Transpo rt Med 2 [facility] Start: 10-13-2022 End: 11-08-2022 History of Social function [facility] Start: 10-13-2022 End: 11-08-2022 Tobacco use panel [facility] How hard is it for y ou to pay for the very basics like food, housing, medical care, and heating Not hard at all [facility] (I/We) worried wheth er (my/our) food would run out before (I/we) got money to buy more. Never true [facility] In the past 12 month s, was there a time when you were not able to pay the mortgage or rent on time? No [facility] Goals Date Patient Goal Desired Activity /State Personal health goal Clinical Notes 03-23-2020 to 05-25-2023 Jolene Emery RN - 05/25/2023 11:47 AM Jason Alford DO - 05/12/2023 4:40 PM Yanely Sol RN - 05/12/2023 1:43 PM Wes Mejía MD - 05/10/2023 1:29 PM EST Note Date & Type Note Facility 05-25-2023 History of Presen t illness Narrative CDM Telephonic Outreach Provider Action/FYI Patient's jazmine and patient is tyring to navigate emotional and financial situation. Patient declines need for or SW at this time. Contacted for: Routine Telephonic Outreach Contact made with patient: Yes Patient identified by name and date of . Discussed care with patient Are you experiencing any new or worsening symptoms you need to talk about today? No Disease Specific Do you check your blood pressure at home? No Do you have new or worsening shortness of breath with activity? No Do you have new or worsening trouble breathing while lying flat? No Do you have new or worsening swelling of legs, feet or ankles? No Do you feel like you are dehydrated for any reason, including not being able to eat or drink normally, or having less urine/much darker urine than normal for you? No Do you check your daily weight at home? No and Do you have new or worsening cough? No Do you have new or worsening wheezing? No Do you need to use your rescue (Albuterol) inhaler or nebulizer more often than normal? No Based on gang sawyer, the following disposition is advised: No symptoms or symptoms present, not severe. Routed to: No Action Needed FAVIOLA Education Provided this Outreach: No Jolene Emery RN May 25, 2023 11:51 AM documented in this encounter [facility] 05-12-2023 History of Presen t illness Narrative Agree with below Jason Gallegos DO patient had inr completed at [facility] patients inr is 2.3 (patients inr range is 2.0-3.0) patient is currently taking 4mg Fri and 2mg all other days patients last dose change was on 05/05/23 due to a low level of 1.9 (dose unknown) patient has had no changes in medication except for coumadin and no missed doses and no change in diet Advised patient to continue on the same dose(s) and that they would only be contacted regarding dosage and follow up instructions after review with provider, if a change is needed. Written instructions given and patient verbalized understanding. Presently scheduled in 2 weeks (05/25/23) for follow up INR. documented in this encounter [facility] 05-11-2023 Miscellaneous Notes Patient notified. She will watch diet better to help with cholesterol. She isn't interested in another medication at this time. Let her know las are stable. Her sugars are stable. No anemia. Her cholesterol is up some. She had issue with crestor in the past for her cholesterol Would she be willing to try a nonrelated medication to reduce her risk of stroke or heart attack? The 10-year ASCVD risk score (Maikel DK, et al., 2019) is: 18.3% Values used to calculate the score: Age: 77 years Sex: Female Is Non- : No Diabetic: No Tobacco smoker: No Systolic Blood Pressure: 106 mmHg Is BP treated: Yes HDL Cholesterol: 54 mg/dL Total Cholesterol: 216 mg/dL documented in this encounter [facility] 05-10-2023 Miscellaneous Notes First call made to reschedule tomorrow's appointment with Jannet Wyatt @ 2:30 PM, myah. Heena Davidson May 10, 2023 3:06 PM documented in this encounter [facility] 05-10-2023 History of Presen t illness Narrative Patient presents with: 6 Month Exam HPI: Patient presents today for office visit for follow up. Still with intermittent bloating in abdomen. Denies any abdominal pain. Refers to gurgling sound in belly even after she eats. Hx of GERD. Continues on Omeprazole 40 mg daily Occasional heartburn but not very often. Takes TUMS prn. Denies bloody or black stool Denies constipation, vomiting or diarrhea. Bowel movements are regular. Daily. Solid. Appetite is good. Had egd in February by Dr. Evans. Had extensive mata's. He recommended she follow with a travel administrator. She has not done that. Continues on Anticoag with INR checks. No bleeding or bruising Dr Mariee released her from pulmonary. No cough or wheeze. Pleural effusion is resolved. Denies chest pain and shortness of breath. Complains of lightheadedness. Intermittent over the last couple months. Positional. When she goes from sitting to standing. Sometimes when she's already up and walking around it will occur. Always has to reach out to grab hold of something when this happens. Feels like she could fall over. Episodes only last a few seconds. Happens rarely. No headaches. No palpitations. No numbness or weakness. Was to see cardiology last month and could not go. Reminded to reschedule. Discussed support socks etc. Will check labs. MEDICATIONS: Current Outpatient Medications Medication Sig warfarin (COUMADIN) 3 mg tablet Take 1 tablet by mouth daily as directed. warfarin (COUMADIN) 4 mg tablet 4 mg on Monday and , 2 mg all other days metoprolol tartrate, short acting, (LOPRESSOR) 50 mg tablet Take 1 tablet by mouth twice daily. warfarin (COUMADIN) 4 mg tablet Take 1 tablet by mouth daily as directed. omeprazole (PRILOSEC) 40 mg capsule Take 1 capsule by mouth once daily. gabapentin (NEURONTIN) 100 mg capsule Take 1 capsule by mouth twice daily for 180 days. Back Brace misc 1 Each once daily. Custom made amiodarone (PACERONE) 200 mg tablet Take 0.5 tablets by mouth once daily. dilTIAZem CD (CARDIZEM CD, CARTIA XT) 240 mg 24 hr capsule Take 240 mg by mouth once daily. furosemide (LASIX) 40 mg tablet Take 1 tablet by mouth twice daily. WALKER ROLLATOR SEAT WITH 6 WHEELS - RED Daily use R26.81 Gait instability (primary encounter diagnosis) potassium chloride 20 mEq TbER Take 1 tablet by mouth twice daily. albuterol HFA (PROVENTIL HFA, VENTOLIN HFA) 90 mcg/actuation inhaler Inhale 2 Puffs as instructed every 4 hours as needed. 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 MULTIVITAMIN ORAL Take 1 tablet by mouth once daily. No current facility-administered medications for this visit. ALLERGIES: ALLERGIES Allergen Reactions Crestor [Rosuvastat* Other: See Comments Myalgia. Ibuprofen Other: See Comments dizzy Prevnar 13 [Pneumoc* Rash Presumed reaction to Prevnar. Latex Rash Local contact rash. PAST MEDICAL HISTORY Diagnosis Date A-fib ([facility]) Class 1 congestive heart failure, unspecified failure chronicity, systolic ([facility]) 11/21/2019 Dysphagia, unspecified(787.20) Esophageal reflux Esophagitis, unspecified Marfan's syndrome Moderate mitral regurgitation 06/18/2021 04/27/21 Echo at [facility]. Pleural effusion, right 05/05/2020 CXR 11/18/19 and 05/04/20. Unspecified essential hypertension PAST SURGICAL HISTORY Procedure Laterality Date COLONOSCOPY FLX DX W/COLLJ SPEC WHEN PFRMD 10/16/14 Colonoscopy EGD TRANSORAL BIOPSY SINGLE/MULTIPLE 01/13/09 ESOPHAGOGASTRODUODENOSCOPY TRANSORAL DIAGNOSTIC 10/16/14 EGD FNA WITH IMAGING 03/16/11 U/S FNA left mid/lower lobe thyroid nodule MAMMOGRAM BILATERAL August 2010? PAST SURGICAL HISTORY OF tubial pregnacy/tube removed PAST SURGICAL HISTORY OF eye surgery bilateral TOTAL ABDOMINAL HYSTERECT W/WO RMVL TUBE OVARY Hysterectomy, [place] FAMILY HISTORY Problem Relation Age of Onset Diabetes Mother Cancer Mother other (marfan syndrome) Mother GI Father ulcer Diabetes Sister other (marfan syndrome) Brother x2 Stroke Maternal Grandmother Hypertension Sister Hypertension Brother COPD Brother Emphysema COPD Daughter Emphysema Social History Tobacco Use Smoking status: Never Smokeless tobacco: Never Tobacco comments: Spouse smoked cigars in home until about 2003. Vaping Use Vaping Use: Never used Substance Use Topics Alcohol use: No Drug use: No Reviewed current medications, allergies, past medical history, surgical history, family history and social history today. REVIEW OF SYSTEMS All other reviewed and negative other than HPI. HEALTH MAINTENANCE: Reviewed health maintenance issues today and recommended the following in detail. BP Controlled (<130/80) Never done RSV Vaccine(1 - 1-dose 60+ series) Never done Influenza Vaccine(1) due on 02/03/2023 VITALS: BP 106/72 (BP Position: Standing) Pulse 70 Ht 154.9 cm (5' 1 ) Wt 56.3 kg (124 lb 3.2 oz) SpO2 94% BMI 23.47 kg/m BP w/Orthostatic Vitals Date and Time Orthostatic BP Orthostatic Pulse BP Pulse BP Position BP Site BP Cuff Size 05/10/23 1343 -- -- 106/72 -- Standing -- -- 05/10/23 1329 -- -- 100/62 70 Sitting -- -- Last 4 Encounter Wt Readings: Date: Wt: 01/13/2023 58.6 kg (129 lb 3.2 oz) 11/08/2022 60.3 kg (133 lb) 09/19/2022 60.3 kg (133 lb) 09/01/2022 59.9 kg (132 lb) PHYSICAL EXAMINATION: General appearance: Well appearing, alert, in no acute distress, well-hydrated, well nourished. Skin: Skin color, texture, turgor normal, no suspicious rashes or lesions Head: Normocephalic, no masses, lesions, tenderness or abnormalitie Lungs: Lungs clear to auscultation. No wheezing, rhonchi, rales Heart: RRR without murmur, gallop, or rubs. No ectopy Abdomen: Normal abdominal exam, Abdomen soft, non-tender. Bowel sounds normal. No masses, organomegaly Extremities: No deformities, edema, skin discoloration, clubbing or cyanosis. Good capillary refill. Musculoskeletal: No joint swelling, deformity, or tenderness Peripheral pulses: Normal Neuro: Negative. ASSESSMENT/PLAN: 1. Paroxysmal atrial fibrillation (HCC) - ICD9: 427.31, ICD10: I48.0 (primary diagnosis) - stable. Reminded to follow with cardiology 2. Hyperlipidemia, unspecified hyperlipidemia type - ICD9: 272.4, ICD10: E78.5 Check labs. - COMP METABOLIC PANEL - LIPID PANEL, NONFASTING 3. Hypertension, essential - ICD9: 401.9, ICD10: I10 - Controlled 4. Pulmonary hypertension (HCC) - ICD9: 416.8, ICD10: I27.20 - will follow. Pulmonary apparently released her patient. Will follow. 5. 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) - ICD9: 428.0, ICD10: I50.813 - stable. 6. Pulmonary emphysema, unspecified emphysema type (HCC) - ICD9: 492.8, ICD10: J43.9 - stable. 7. 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 - ICD9: 530.85, ICD10: K22.70 - CONSULT TO GASTROENTEROLOGY 8. Gastroesophageal reflux disease, unspecified whether esophagitis present - ICD9: 530.81, ICD10: K21.9 - CONSULT TO GASTROENTEROLOGY 9. Stage 3 chronic kidney disease, unspecified whether stage 3a or 3b CKD (HCC) - ICD9: 585.3, ICD10: N18.30 - recheck labs. 10. Thyroid nodule - ICD9: 241.0, ICD10: E04.1 - has followed with Dr Evans - TSH BLD 11. Iron deficiency anemia, unspecified iron deficiency anemia type - ICD9: 280.9, ICD10: D50.9 - had extensive mata's and surgery at [facility] recommended she obtain follow up with gi. - CONSULT TO GASTROENTEROLOGY - CBC + DIFF - IRON + TIBC 12. Rheumatoid arthritis, involving unspecified site, unspecified whether rheumatoid factor present (HCC) - ICD9: 714.0, ICD10: M06.9 - currently denies. 13. Prediabetes - ICD9: 790.29, ICD10: R73.0 - HGB A1C 14. Lung nodule Last ct showed several pulmonary nodules 4 mm in size. Some are old. May consider follow up ct at next ov. Wes Bonilla MD RTO in six months. documented in this encounter [facility] 05-05-2023 Miscellaneous Notes Call to pt and notified her of message below from Provider. Pt asking to setup appt next week with CC Nurse. Appt made on 05/12 at 1:00 pm. Tracker updated. Jennifer Kimball Ma 4 mg on Monday. 2 mg a day rest of the week. Recheck one week. Last INR: PT INR 1.9 05/05/2023 Current dose of coumadin is: 2 mg daily. Last date of dose change: 05/03. Previous INR (date and result): 2.8 05/02 Rachelle Villa Ma documented in this encounter [facility] 05-03-2023 Miscellaneous Notes Patient notified and verbalizes understanding. Tracker updated. 2 mg a day. Recheck monday Last INR: PT INR 2.8 05/02/2023 Current dose of coumadin is: patient got the Vit K on Monday evening and took the dose. Held her dose on Monday and Monday. Last date of dose change: 05/01/23 6.6 Previous INR (date and result): 6.6 Additional Clinical Information or narrative: no documented in this encounter [facility] 05-01-2023 Miscellaneous Notes [facility] will get for patient this evening please file. Nimisha is notified and will go get it tonight. Patient calling back to say Rubia [facility] called local pharmacies for her and there is no Vitamin K in stock in the [place] area. Airam Ayon RN agree Patient calling to say [facility] tells her they do not have any Vitamin K in stock. They have to order it to have it available tomorrow. She is going to contact [facility] and [facility] to see if either pharmacy has the medication in stock tonight. Airam Ayon RN documented in this encounter [facility] 05-01-2023 Miscellaneous Notes Patient notified and verbalizes understanding. Did confirm that she was taking the 4mg on / and 2mg all other days. INR is elevated at 6.6. call if any bleeding issues. Hold coumadin. Vit k sent in to take today. Recheck inr in am. documented in this encounter [facility] 04-11-2023 Note HNO ID: [id number] Author: Jolene Emery RN Service: ? Author Type: Registered Nurse Type: Progress Notes Filed: 04/11/2023 5:26 PM Note Text: [facility] Telephonic Outreach Provider Action/FYI Contacted for: Routine Telephonic Outreach Contact made with patient: Yes Patient identified by name and date of . Discussed care with patient Are you experiencing any new or worsening symptoms you need to talk about today? No Disease Specific Do you check your blood pressure at home? No Do you have new or worsening shortness of breath with activity? No Do you have new or worsening trouble breathing while lying flat? No Do you have new or worsening swelling of legs, feet or ankles? No Do you feel like you are dehydrated for any reason, including not being able to eat or drink normally, or having less urine/much darker urine than normal for you? No Do you check your daily weight at home? No and Do you have new or worsening cough? No Do you have new or worsening wheezing? No Do you need to use your rescue (Albuterol) inhaler or nebulizer more often than normal? No Based on gang sawyer, the following disposition is advised: No symptoms or symptoms present, not severe. Routed to: No Action Needed FAVIOLA Education Provided this Outreach: No Jolene Emery RN April 11, 2023 5:25 PM [facility] 04-11-2023 History of Presen t illness Narrative [facility] Telephonic Outreach Provider Action/FYI Contacted for: Routine Telephonic Outreach Contact made with patient: Yes Patient identified by name and date of . Discussed care with patient Are you experiencing any new or worsening symptoms you need to talk about today? No Disease Specific Do you check your blood pressure at home? No Do you have new or worsening shortness of breath with activity? No Do you have new or worsening trouble breathing while lying flat? No Do you have new or worsening swelling of legs, feet or ankles? No Do you feel like you are dehydrated for any reason, including not being able to eat or drink normally, or having less urine/much darker urine than normal for you? No Do you check your daily weight at home? No and Do you have new or worsening cough? No Do you have new or worsening wheezing? No Do you need to use your rescue (Albuterol) inhaler or nebulizer more often than normal? No Based on gang sawyer, the following disposition is advised: No symptoms or symptoms present, not severe. Routed to: No Action Needed FAVIOAL Education Provided this Outreach: No Jolene Emery RN April 11, 2023 5:25 PM documented in this encounter [facility] 04-11-2023 Note Patient Outreach [place] NIMISHA CEJA ([id number]) 1945 F Date Time Provider Department 04/11/[address] [facility] [place] your visit today, we recorded the following information about you: Jolene Emery RN 04/11/2023 5:26 PM Signed [facility] Telephonic Outreach Provider Action/FYI Contacted for: Routine Telephonic Outreach Contact made with patient: Yes Patient identified by name and date of . Discussed care with patient Are you experiencing any new or worsening symptoms you need to talk about today? No Disease Specific Do you check your blood pressure at home? No Do you have new or worsening shortness of breath with activity? No Do you have new or worsening trouble breathing while lying flat? No Do you have new or worsening swelling of legs, feet or ankles? No Do you feel like you are dehydrated for any reason, including not being able to eat or drink normally, or having less urine/much darker urine than normal for you? No Do you check your daily weight at home? No and Do you have new or worsening cough? No Do you have new or worsening wheezing? No Do you need to use your rescue (Albuterol) inhaler or nebulizer more often than normal? No Based on gang sawyer, the following disposition is advised: No symptoms or symptoms present, not severe. Routed to: No Action Needed FAVIOLA Education Provided this Outreach: No Jolene Emery RN April 11, 2023 5:25 PM Allergies As of Date: 04/11/2023 Noted Allergy Reaction CRESTOR (ROSUVASTATIN CALCIUM) 01/19/2011 14 - Other: See Comments Comments: Myalgia. IBUPROFEN 12/04/2008 14 - Other: See Comments Comments: dizzy PREVNAR 13 (PNEUMOC 13-CHU CONJ-D*07/27/2015 2 - Rash Comments: Presumed reaction to Prevnar. LATEX 12/08/2008 2 - Rash Comments: Local contact rash. Date Reviewed: 01/13/2023 Reviewed by: Heena Lynch MA - Fully Assessed Reason for Visit: CDM [Other] Cmt: Routine outreach Prescriptions as of 04/11/2023 - warfarin (COUMADIN) 3 mg tablet Take 1 tablet by mouth daily as directed. - warfarin (COUMADIN) 4 mg tablet 4 mg on Monday and , 2 mg all other days - metoprolol tartrate, short acting, (LOPRESSOR) 50 mg tablet Take 1 tablet by mouth twice daily. - warfarin (COUMADIN) 4 mg tablet Take 1 tablet by mouth daily as directed. - omeprazole (PRILOSEC) 40 mg capsule Take 1 capsule by mouth once daily. - gabapentin (NEURONTIN) 100 mg capsule Take 1 capsule by mouth twice daily for 180 days. - calcitonin,salmon, (MIACALCIN, FORTICAL) 200 unit/actuation nasal spray Use 1 Baldwin in the nose once daily. - Back Brace misc 1 Each once daily. Custom made - Metaxalone 400 mg tab Take 1 tablet by mouth three times daily as needed. - amiodarone (PACERONE) 200 mg tablet Take 0.5 tablets by mouth once daily. - dilTIAZem CD (CARDIZEM CD, CARTIA XT) 240 mg 24 hr capsule Take 240 mg by mouth once daily. - furosemide (LASIX) 40 mg tablet Take 1 tablet by mouth twice daily. - WALKER ROLLATOR SEAT WITH 6 WHEELS - RED Daily use R26.81 Gait instability (primary encounter diagnosis) - potassium chloride 20 mEq TbER Take 1 tablet by mouth twice daily. - albuterol HFA (PROVENTIL HFA, VENTOLIN HFA) 90 mcg/actuation inhaler Inhale 2 Puffs as instructed every 4 hours as needed. 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 - MULTIVITAMIN ORAL Take 1 tablet by mouth once daily. 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] Esophageal reflux [K21.9] Nontoxic multinodular goiter [E04.2] 12/08/2008 05/08/2018 Gastrointestinal malfunction arising from menta*12/09/2008 10/10/2017 Esophagitis, unspecified [K20.90] 01/13/2009 10/10/2017 Hypertension [I10] 01/19/2011 06/23/2015 Hyperlipidemia [E78.5] 01/19/2011 History of polymyalgia rheumatica [Z87.39] 01/19/2011 Multiple thyroid nodules [E04.2] 03/03/2011 09/23/2020 Atrial fibrillation (HCC) [I48.91] 01/14/2014 10/10/2017 Centrilobular emphysema (HCC) [J43.2] 01/14/2014 11/08/2022 Paroxysmal atrial fibrillation (HCC) [I48.0] Hypertension, essential [I10] 06/23/2015 Chronic anticoagulation [Z79.01] 06/23/2015 Fatigue [R53.83] 11/24/2016 10/10/2017 Lung nodule [R91.1] 06/06/2019 Chronic systolic heart failure (HCC) [I50.22] 11/21/2019 09/23/2020 Thoracic aorta atherosclerosis (HCC) [I70.0] 03/23/2020 09/23/2020 Pleural effusion, right [J90] 05/05/2020 11/08/2022 (more content not included)... [facility] 03-30-2023 Note HNO ID: [id number] Author: Wes Bonilla MD Service: ? Author Type: Physician Type: Progress Notes Filed: 03/30/2023 4:35 PM Note Text: agree [facility] 03-30-2023 History of Presen t illness Narrative agree patient had inr completed at [facility] patients inr is 2.2 (patients inr ranges is 2.0-3.0) patient is currently taking 4mg Tues,Thurs and 2mg all other days patients last dose change was on 01/20/23 due to a high level of 3.3 (dose at that time was 4mg Tues,Thurs,Sun and 2mg all other days) patient has had no changes in medication and no missed doses and no change in diet Advised patient to continue on the same dose(s) and that they would only be contacted regarding dosage and follow up instructions after review with provider, if a change is needed. Written instructions given and patient verbalized understanding. Presently scheduled in 4 weeks (04/26/23) for follow up INR. documented in this encounter [facility] 03-30-2023 Note HNO ID: [id number] Author: Yanely Posadas RN Service: ? Author Type: ? Type: Progress Notes Filed: 03/30/2023 4:35 PM Note Text: patient had inr completed at [facility] patients inr is 2.2 (patients inr ranges is 2.0-3.0) patient is currently taking 4mg Tues,Thurs and 2mg all other days patients last dose change was on 01/20/23 due to a high level of 3.3 (dose at that time was 4mg Tues,Thurs,Sun and 2mg all other days) patient has had no changes in medication and no missed doses and no change in diet Advised patient to continue on the same dose(s) and that they would only be contacted regarding dosage and follow up instructions after review with provider, if a change is needed. Written instructions given and patient verbalized understanding. Presently scheduled in 4 weeks (04/26/23) for follow up INR. [facility] 03-30-2023 Miscellaneous Notes patients orders for coumadin clinic inr's has at this time. new order has been pended for approval if possible so that patient can continue to get inr's completed thru the coumadin clinic. coumadin clinic nurse only needs called if order can not be approved. documented in this encounter [facility] 03-15-2023 Note Patient Outreach ([facility] NIMISHA CEJA ([id number]) 1945 F Date Time Provider Department 03/15/23 JOLENE EMERY [facility] During your visit today, we recorded the following information about you: Jolene Emery, RN 03/15/2023 9:17 AM Signed [facility] Telephonic Outreach Provider Action/CAROLYN Contacted for: Routine Telephonic Outreach Contact made with patient: Yes Patient identified by name and date of . Discussed care with patient Are you experiencing any new or worsening symptoms you need to talk about today? No Disease Specific Do you check your blood pressure at home? No Do you have new or worsening shortness of breath with activity? No Do you have new or worsening trouble breathing while lying flat? No Do you have new or worsening swelling of legs, feet or ankles? No Do you feel like you are dehydrated for any reason, including not being able to eat or drink normally, or having less urine/much darker urine than normal for you? No Do you check your daily weight at home? No and Do you have new or worsening cough? No Do you have new or worsening wheezing? No Do you need to use your rescue (Albuterol) inhaler or nebulizer more often than normal? No Based on gang sawyer, the following disposition is advised: No symptoms or symptoms present, not severe. Routed to: No Action Needed FAVIOLA Education Provided this Outreach: No Jolene Emery RN March 15, 2023 9:13 AM Allergies As of Date: 03/15/2023 Noted Allergy Reaction CRESTOR (ROSUVASTATIN CALCIUM) 01/19/2011 14 - Other: See Comments Comments: Myalgia. IBUPROFEN 12/04/2008 14 - Other: See Comments Comments: dizzy PREVNAR 13 (PNEUMOC 13-CHU CONJ-D*07/27/2015 2 - Rash Comments: Presumed reaction to Prevnar. LATEX 12/08/2008 2 - Rash Comments: Local contact rash. Date Reviewed: 01/13/2023 Reviewed by: Heena Lynch MA - Fully Assessed Reason for Visit: CDM [Other] Cmt: Routine outreach Prescriptions as of 03/15/2023 - albuterol HFA (PROVENTIL HFA, VENTOLIN HFA) 90 mcg/actuation inhaler Inhale 2 Puffs as instructed every 4 hours as needed. - amiodarone (PACERONE) 200 mg tablet Take 0.5 tablets by mouth once daily. - Back Brace misc 1 Each once daily. Custom made - calcitonin,salmon, (MIACALCIN, FORTICAL) 200 unit/actuation nasal spray Use 1 Baldwin in the nose once daily. - CALCIUM CARBONATE (CALCIUM 600 ORAL) Take 1 tablet by mouth once daily. 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 - furosemide (LASIX) 40 mg tablet Take 1 tablet by mouth twice daily. - gabapentin (NEURONTIN) 100 mg capsule Take 1 capsule by mouth twice daily for 180 days. - Metaxalone 400 mg tab Take 1 tablet by mouth three times daily as needed. - metoprolol tartrate, short acting, (LOPRESSOR) 50 mg tablet Take 1 tablet by mouth twice daily. - MULTIVITAMIN ORAL Take 1 tablet by mouth once daily. - omeprazole (PRILOSEC) 40 mg capsule Take 1 capsule by mouth once daily. - potassium chloride 20 mEq TbER Take 1 tablet by mouth twice daily. - WALKER ROLLATOR SEAT WITH 6 WHEELS - RED Daily use R26.81 Gait instability (primary encounter diagnosis) - warfarin (COUMADIN) 3 mg tablet Take 1 tablet by mouth daily as directed. - warfarin (COUMADIN) 4 mg tablet 4 mg on Monday and , 2 mg all other days - warfarin (COUMADIN) 4 mg tablet Take 1 tablet by mouth daily as directed. 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] Esophageal reflux [K21.9] Nontoxic multinodular goiter [E04.2] 12/08/2008 05/08/2018 Gastrointestinal malfunction arising from menta*12/09/2008 10/10/2017 Esophagitis, unspecified [K20.90] 01/13/2009 10/10/2017 Hypertension [I10] 01/19/2011 06/23/2015 Hyperlipidemia [E78.5] 01/19/2011 History of polymyalgia rheumatica [Z87.39] 01/19/2011 Multiple thyroid nodules [E04.2] 03/03/2011 09/23/2020 Atrial fibrillation (HCC) [I48.91] 01/14/2014 10/10/2017 Centrilobular emphysema (HCC) [J43.2] 01/14/2014 11/08/2022 Paroxysmal atrial fibrillation (HCC) [I48.0] Hypertension, essential [I10] 06/23/2015 Chronic anticoagulation [Z79.01] 06/23/2015 Fatigue [R53.83] 11/24/2016 10/10/2017 Lung nodule [R91.1] 06/06/2019 Chronic systolic heart failure (HCC) [I50.22] 11/21/2019 09/23/2020 Thoracic aorta atherosclerosis (HCC) [I70.0] 03/23/2020 09/23/2020 Pleural effusion, right [J90] 05/05/2020 11/09/19 (more content not included)... [facility] 03-15-2023 Note HNO ID: [id number] Author: Jolene Emery RN Service: ? Author Type: Registered Nurse Type: Progress Notes Filed: 03/15/2023 9:17 AM Note Text: [facility] Telephonic Outreach Provider Action/FYI Contacted for: Routine Telephonic Outreach Contact made with patient: Yes Patient identified by name and date of . Discussed care with patient Are you experiencing any new or worsening symptoms you need to talk about today? No Disease Specific Do you check your blood pressure at home? No Do you have new or worsening shortness of breath with activity? No Do you have new or worsening trouble breathing while lying flat? No Do you have new or worsening swelling of legs, feet or ankles? No Do you feel like you are dehydrated for any reason, including not being able to eat or drink normally, or having less urine/much darker urine than normal for you? No Do you check your daily weight at home? No and Do you have new or worsening cough? No Do you have new or worsening wheezing? No Do you need to use your rescue (Albuterol) inhaler or nebulizer more often than normal? No Based on gang sawyer, the following disposition is advised: No symptoms or symptoms present, not severe. Routed to: No Action Needed FAVIOLA Education Provided this Outreach: No Jolene Emery RN March 15, 2023 9:13 AM [facility] 03-15-2023 History of Presen t illness Narrative [facility] Telephonic Outreach Provider Action/FYI Contacted for: Routine Telephonic Outreach Contact made with patient: Yes Patient identified by name and date of . Discussed care with patient Are you experiencing any new or worsening symptoms you need to talk about today? No Disease Specific Do you check your blood pressure at home? No Do you have new or worsening shortness of breath with activity? No Do you have new or worsening trouble breathing while lying flat? No Do you have new or worsening swelling of legs, feet or ankles? No Do you feel like you are dehydrated for any reason, including not being able to eat or drink normally, or having less urine/much darker urine than normal for you? No Do you check your daily weight at home? No and Do you have new or worsening cough? No Do you have new or worsening wheezing? No Do you need to use your rescue (Albuterol) inhaler or nebulizer more often than normal? No Based on gang sawyer, the following disposition is advised: No symptoms or symptoms present, not severe. Routed to: No Action Needed FAVIOLA Education Provided this Outreach: No Jolene Emery RN March 15, 2023 9:13 AM documented in this encounter [facility] 03-14-2023 Note HNO ID: [id number] Author: Wes Bonilla MD Service: ? Author Type: Physician Type: Progress Notes Filed: 03/14/2023 2:22 PM Note Text: agree [facility] 03-14-2023 Note HNO ID: [id number] Author: Yanely Posadas RN Service: ? Author Type: ? Type: Progress Notes Filed: 03/14/2023 2:22 PM Note Text: patient had inr completed at [facility] patients inr is 2.1 (patients inr range is 2.0-3.0) patient is currently taking 4mg Tues,Thurs and 2mg all other day days patients last dose change was on 01/20/23 due to a high level of 3.3 (dose at that time was 4mg Tues,Thurs,Sun and 2mg all other days) patient has had no changes in medication and no missed doses and no change in diet Advised patient to continue on the same dose(s) and that they would only be contacted regarding dosage and follow up instructions after review with provider, if a change is needed. Written instructions given and patient verbalized understanding. Presently scheduled in 2 weeks (03/28/23 - pt request) for follow up INR. [facility] 03-14-2023 History of Presen t illness Narrative agree patient had inr completed at [facility] patients inr is 2.1 (patients inr range is 2.0-3.0) patient is currently taking 4mg Tues,Thurs and 2mg all other day days patients last dose change was on 01/20/23 due to a high level of 3.3 (dose at that time was 4mg Tues,Thurs,Sun and 2mg all other days) patient has had no changes in medication and no missed doses and no change in diet Advised patient to continue on the same dose(s) and that they would only be contacted regarding dosage and follow up instructions after review with provider, if a change is needed. Written instructions given and patient verbalized understanding. Presently scheduled in 2 weeks (03/28/23 - pt request) for follow up INR. documented in this encounter [facility] 02-27-2023 Miscellaneous Notes Call to pt and notified her of message below from Provider. Pt verbalized understanding. Tracker updated. Jennifer Kimball Ma Continue 2 mg a day. Recheck next Monday. Pt currently taking 4 mg on Saturdays, 2 mg all other days. INR Date Value Ref Range Status 02/27/2023 2.9 (H) 0.9 - 1.3 Final Comment: Vitamin K Antagonist (VKA) Therapeutic Range: INR 2 to 3 (Target INR of 2.5) Note: For patients treated with VKA drugs, such as warfarin, the [place] [employer] 2012 Guideline recommends a therapeutic INR range of 2 to 3 (target INR of 2.5). This recommendation includes high-risk patients with antiphospholipid syndrome with previous arterial or venous thromboembolism, current-generation mechanical or bioprosthetic aortic heart valve replacement. Note: Patients with mechanical aortic valve replacement and additional risk factors for thromboembolic events (atrial fibrillation, previous thromboembolism, LV dysfunction, hypercoagulable conditions) or an older generation mechanical AVR (i.e., ball in-Cage) or any mechanical MVR should have a INR therapeutic range of 2.5 to 3.5 (target INR of 3). Marla CABALLERO et al. Chest 2012, 141:7S-47S Les RA, et al. [facility] 2017, 70: 252-289 documented in this encounter [facility] 02-23-2023 Miscellaneous Notes Patient informed and verbalized understanding. Seema Garcia Ok. Back to 2 mg a day. Except 4 mg on Mon. Recheck Monday Last INR: PT INR 2.6 02/23/2023 Current dose of coumadin is: 6 mg on 02/21, 4 mg on 02/22 recheck 02/23/23. Last date of dose change: 02/21/23. Previous INR (date and result): 1.4 on 02/20/23 Additional Clinical Information or narrative: no Jennifer Kimball Ma documented in this encounter [facility] 02-22-2023 Miscellaneous Notes Pt called and she is almost out of Warfarin and is in need of a short term sent to [facility] and the halfway to [facility]. Patient has been identified by name and date of : Yes, Provider Dr. Bonilla Date 02/22/23 Time 2:33 pm Patient phones for refill(s): Requested Prescriptions Pending Prescriptions Disp Refills warfarin (COUMADIN) 4 mg tablet 90 tablet 3 Si mg on Monday and , 2 mg all other days metoprolol tartrate, short acting, (LOPRESSOR) 50 mg tablet 90 tablet 3 Sig: Take 1 tablet by mouth twice daily. warfarin (COUMADIN) 4 mg tablet 30 tablet 0 Sig: Take 1 tablet by mouth daily as directed. Date of last office visit in primary care: 11/08/22 next apt 05/10/23 Last 2 Encounter Wt Readings: Date: Wt: 01/13/2023 58.6 kg (129 lb 3.2 oz) 11/08/2022 60.3 kg (133 lb) Previous labs/tests for medication: Blood Pressure: BUN (mg/dL) Date Value 09/19/2022 25 05/11/2021 11 Sodium (mmol/L) Date Value 09/19/2022 135 05/11/2021 141 Last 1 Encounter BP Readings: Date: BP: 01/13/2023 142/71 Thank you. Briana Segura LPN documented in this encounter [facility] 02-21-2023 Miscellaneous Notes Pt called and is notified of providers message and instructions. Pt voices understanding. Yolis Tran RN Still low. 6 mg today, then resume 4 mg a day. Recheck on Last INR: PT INR 1.4 02/20/2023 Current dose of coumadin is: 4 mg daily. Previous INR (date and result): 1.2 02/17/23 Additional Clinical Information or narrative: no documented in this encounter [facility] 02-18-2023 Miscellaneous Notes Patient notified of message below with instructions repeated back to this nurse. Alma Delia Doyle RN 4 mg a day. Recheck Monday Last INR: PT INR 1.2 02/17/2023 Current dose of coumadin is: 4mg tues/thurs and 2mg all other days. Additional Clinical Information or narrative: Procedure 02/14/23 told to hold coumadin 3 days prior and restart day after. documented in this encounter [facility] 02-17-2023 History of Presen t illness Narrative [facility] Telephonic Outreach Provider Action/FYI Contacted for: Routine Telephonic Outreach Contact made with patient: Yes Patient identified by name and date of . Discussed care with patient Are you experiencing any new or worsening symptoms you need to talk about today? No Disease Specific Do you check your blood pressure at home? No Do you have new or worsening shortness of breath with activity? No Do you have new or worsening trouble breathing while lying flat? No Do you have new or worsening swelling of legs, feet or ankles? No Do you feel like you are dehydrated for any reason, including not being able to eat or drink normally, or having less urine/much darker urine than normal for you? No Do you check your daily weight at home? No and Do you have new or worsening cough? No Do you have new or worsening wheezing? No Do you need to use your rescue (Albuterol) inhaler or nebulizer more often than normal? No Based on gang sawyer, the following disposition is advised: No symptoms or symptoms present, not severe. Routed to: No Action Needed FAVIOLA Education Provided this Outreach: No Jolene Emery RN February 17, 2023 10:33 AM [facility] Telephonic Outreach Provider Action/FYI Contacted for: Routine Telephonic Outreach Contact made with patient: No, left message. Jolene Emery RN February 14, 2023 10:33 AM documented in this encounter [facility] 02-15-2023 Miscellaneous Notes Patient called and notified of provider recommendations. Patient voiced understanding. Deana Coleman RN If she was off for her egd. Resume at previous dose. Recheck inr on Monday Patient calls and is asking what dosage of coumadin should she take today. Patient has been off of coumadin x 4 day due to having surgery. Patient states INR yesterday was 1.6. Patient's dosage is 4 mg Monday/; 2 mg all other days. Patient asking when should should get INR rechecked? Please review and advise, Deana Coleman RN documented in this encounter [facility] 02-10-2023 Miscellaneous Notes Spoke to patient and she verbalizes understanding. Telephone on 02/10/23 PROTHROMBIN TIME/PT If surgeon wants checked I placed orders. Otherwise she can hold coumadin as directed- usually 5 days prior to surgery and resumed 1 day after surgery. Thanks, Tobi Mehta PA-C Pt called and she missed her INR apt with the coumadine clinic yesterday. Pt is scheduled for a colonoscopy with Dr. Abimael Evans [facility] on 02-14-23. Pt has been instructed to not take her coumadin starting tonight thru 02-14-23. Pt asking what you would like her to do. Does she need to come into day to get an INR done at the lab? Please advise pt. Briana Segura LPN documented in this encounter [facility] 01-27-2023 Note HNO ID: [id number] Author: Wes Bonilla MD Service: ? Author Type: Physician Type: Progress Notes Filed: 01/27/2023 1:27 PM Note Text: agree [facility] 01-27-2023 Note HNO ID: [id number] Author: Yanely Posadas RN Service: ? Author Type: ? Type: Progress Notes Filed: 01/27/2023 1:27 PM Note Text: patient had inr completed at [facility] patients inr is 3.0 (patients inr range is 2.0-3.0) patient is currently taking 4mg Tues,Thurs and 2mg all other days patients last dose change was on 01/20/23 due to a high level of 3.3 (dose at that time was 4mg Tues,Thurs,Sun and 2mg all other days) patient has had no changes in medication except for coumadin and no missed doses and no change in diet Advised patient to continue on the same dose(s) and that they would only be contacted regarding dosage and follow up instructions after review with provider, if a change is needed. Written instructions given and patient verbalized understanding. Presently scheduled in 2 weeks (02/09/23) for follow up INR since this is the first normal reading since dose change [facility] 01-27-2023 History of Presen t illness Narrative agree patient had inr completed at [facility] patients inr is 3.0 (patients inr range is 2.0-3.0) patient is currently taking 4mg Tues,Thurs and 2mg all other days patients last dose change was on 01/20/23 due to a high level of 3.3 (dose at that time was 4mg Tues,Thurs,Sun and 2mg all other days) patient has had no changes in medication except for coumadin and no missed doses and no change in diet Advised patient to continue on the same dose(s) and that they would only be contacted regarding dosage and follow up instructions after review with provider, if a change is needed. Written instructions given and patient verbalized understanding. Presently scheduled in 2 weeks (02/09/23) for follow up INR since this is the first normal reading since dose change documented in this encounter [facility] 01-27-2023 Miscellaneous Notes Patient reports she was dx with shingles on neck/upper back in [facility] 01-13. Reports continues to have blisters but they also appear inside left elbow and on wrist. No seeping. No improvement since they started on 01-10. Patient declined offer for same day appt, since will be at lab at 1 pm for INR will just return to [facility] at that time. Reason for Disposition [1] Shingles rash AND [2] spots start appearing other places on body Answer Assessment - Initial Assessment Questions 1. APPEARANCE of RASH: Dx with shingles on 01-13-23 in [facility]. Today looks little tiny blisters grouped together, back of neck, upper back, left side, spot on elbow in front, inside, red rash, small amount tiny blisters grouped together- not as bad as neck/back, spot on left wrist. Reports [facility] didn't think the rash on her arm was shingles. Reports she was prescribed valcyclovir but stopped it due to sick to stomach. 2. LOCATION: See above. 3. ONSET: Around 01-10-23. 3 days before went to [facility] 4. ITCHING: At night severe. During day mild. 5. PAIN: Moderate pain. 6. OTHER SYMPTOMS: No fever. No other symptoms 7. : No. Post [place]. Protocols used: Shingles (Zoster)-ADULT-AH documented in this encounter [facility] 01-23-2023 Miscellaneous Notes TC to patient who verbalized understanding and has no questions at this time. HEIDI Fajardo Let her know her repeat labs are ok. documented in this encounter [facility] 01-20-2023 Note HNO ID: [id number] Author: Yanely Posadas RN Service: ? Author Type: ? Type: Progress Notes Filed: 01/20/2023 4:22 PM Note Text: PATIENT NOTIFIED OF INFORMATION [facility] 01-20-2023 Note HNO ID: [id number] Author: Wes Bonilla MD Service: ? Author Type: Physician Type: Progress Notes Filed: 01/20/2023 2:45 PM Note Text: agree [facility] 01-20-2023 History of Presen t illness Narrative PATIENT NOTIFIED OF INFORMATION agree patient had inr completed at [facility] patients inr is 3.3 (patients inr range is 2.0-3.0) patient is currently taking 4mg Tues,Thurs,Sun and 2mg all other days patients last dose change was on 12/02/22 due to a high level of 3.4 (dose at that time was 2mg Mon,Wed,Fri and 4mg all other days) patient has had no changes in medication and no missed doses and no change in diet Recommend: patient change coumadin dose to 4mg Tues,Thurs and 2mg all other days and recheck inr in 1 week Patient has been scheduled for a 1 week follow up inr on 01/27/23 please review and advise on recommendation documented in this encounter [facility] 01-20-2023 Note HNO ID: [id number] Author: Yanely Posadas RN Service: ? Author Type: ? Type: Progress Notes Filed: 01/20/2023 2:45 PM Note Text: patient had inr completed at [facility] patients inr is 3.3 (patients inr range is 2.0-3.0) patient is currently taking 4mg Tues,Thurs,Sun and 2mg all other days patients last dose change was on 12/02/22 due to a high level of 3.4 (dose at that time was 2mg Mon,Wed,Fri and 4mg all other days) patient has had no changes in medication and no missed doses and no change in diet Recommend: patient change coumadin dose to 4mg Tues,Thurs and 2mg all other days and recheck inr in 1 week Patient has been scheduled for a 1 week follow up inr on 01/27/23 please review and advise on recommendation [facility] 01-17-2023 Miscellaneous Notes Scheduled with kori tomorrow. Seema Garcia Hold med. Benadryl prn. Needs seen by one of us. Spoke with patient. She denies any shortness of breath. She was unclear whether or not the rash looks the same as the shingles spot. The outbreak for shingles in on the back of her neck. She states she rash on her back is different than the rash on her arm. Says the rash on her arm is bigger in size. Says her face around her eyes is slightly swollen. Seema Garcia ? Is it the same rash. Shingles usually is not all over. Can we find out? If different rash, hold valacyclovir and benadryl prn. Any shortness of breath etc. Probably needs looked at. Pt was seen in [facility] 01/13/23 & dx'd with shingles. Pt states she is taking valtrex twice daily however she is concerned she may be allergic to it. Pt reports the rash is speading, it is on her left arm & back, painful & itches. Worse at hs. Face is slightly swollen around eyes & cheek bones. Denies fever. Pt asking if she can take tylenol or benadryl? Please advise. Gillian Holbrook LPN documented in this encounter [facility] 01-16-2023 Note Patient Outreach ([place] [facility] NIMISHA CEJA ([id number]) 1945 F Date Time Provider Department 01/16/23 [facility] your visit today, we recorded the following information about you: Jolene Emery, RN 01/16/2023 11:07 AM Signed [facility] Telephonic Outreach Provider Too/CAROLYN Breaking out on arm and upper back - [facility] diagnosed shingles. She is currently taking medication valacyclovir. She will continue to monitor and call if symptoms are same or worsening over the next couple days. At this time she feels symptoms are the same. Patient had EGD at [facility] set up from 02/14. Contacted for: Routine Telephonic Outreach Contact made with patient: Yes Patient identified by name and date of . Discussed care with patient Are you experiencing any new or worsening symptoms you need to talk about today? No Disease Specific Do you check your blood pressure at home? No Do you have new or worsening shortness of breath with activity? No Do you have new or worsening trouble breathing while lying flat? No Do you have new or worsening swelling of legs, feet or ankles? No Do you feel like you are dehydrated for any reason, including not being able to eat or drink normally, or having less urine/much darker urine than normal for you? No Do you check your daily weight at home? No and Do you have new or worsening cough? No Do you have new or worsening wheezing? No Do you need to use your rescue (Albuterol) inhaler or nebulizer more often than normal? No Based on gang sawyer, the following disposition is advised: No symptoms or symptoms present, not severe. Routed to: No Action Needed FAVIOLA Education Provided this Outreach: No Jolene Emery RN January 16, 2023 10:53 AM Allergies As of Date: 01/16/2023 Noted Allergy Reaction CRESTOR (ROSUVASTATIN CALCIUM) 01/19/2011 14 - Other: See Comments Comments: Myalgia. IBUPROFEN 12/04/2008 14 - Other: See Comments Comments: dizzy PREVNAR 13 (PNEUMOC 13-CHU CONJ-D*07/27/2015 2 - Rash Comments: Presumed reaction to Prevnar. LATEX 12/08/2008 2 - Rash Comments: Local contact rash. Date Reviewed: 01/13/2023 Reviewed by: Heena Lynch MA - Fully Assessed Reason for Visit: CDM [Other] Cmt: Routine outreach Prescriptions as of 01/16/2023 - valACYclovir (VALTREX) 1 gram Take 1 tablet by mouth twice daily for 7 days. - omeprazole (PRILOSEC) 40 mg capsule Take 1 capsule by mouth once daily. - warfarin (COUMADIN) 4 mg tablet 4 mg on Monday and , 2 mg all other days - gabapentin (NEURONTIN) 100 mg capsule Take 1 capsule by mouth twice daily for 180 days. - calcitonin,salmon, (MIACALCIN, FORTICAL) 200 unit/actuation nasal spray Use 1 Baldwin in the nose once daily. - Back Brace misc 1 Each once daily. Custom made - Metaxalone 400 mg tab Take 1 tablet by mouth three times daily as needed. - metoprolol tartrate, short acting, (LOPRESSOR) 50 mg tablet Take 1 tablet by mouth twice daily. - amiodarone (PACERONE) 200 mg tablet Take 0.5 tablets by mouth once daily. - dilTIAZem CD (CARDIZEM CD, CARTIA XT) 240 mg 24 hr capsule Take 240 mg by mouth once daily. - furosemide (LASIX) 40 mg tablet Take 1 tablet by mouth twice daily. - WALKER ROLLATOR SEAT WITH 6 WHEELS - RED Daily use R26.81 Gait instability (primary encounter diagnosis) - potassium chloride 20 mEq TbER Take 1 tablet by mouth twice daily. - albuterol HFA (PROVENTIL HFA, VENTOLIN HFA) 90 mcg/actuation inhaler Inhale 2 Puffs as instructed every 4 hours as needed. 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 - MULTIVITAMIN ORAL Take 1 tablet by mouth once daily. Meds Comments as of 02/09/2022: 02/09/22 Severe med interactions noted between amiodarone and dilTIAZem CD; warfarin and amiodarone February 03, 2022 Ana Rosa Santamaria (Pharmacist) - Interviewed pt, assessed Rx fill hx and Epic data Problem List As Of Date 01/16/2023 Noted Resolved Dysphagia, unspecified(787.20) [R13.10] 05/08/2018 MARFAN'S SYNDROME [Q87.40] Esophageal reflux [K21.9] Nontoxic multinodular goiter [E04.2] 12/08/2008 05/08/2018 Gastrointestinal malfunction arising from menta*12/09/2008 10/10/2017 Esophagitis, unspecified [K20.90] 01/13/2009 10/10/2017 Hypertension [I10] 01/19/2011 06/23/2015 Hyperlipidemia [E78.5] 01/19/2011 History of polymyalgia rheumatica [Z87.39] 01/19/2011 Multiple thyroid nodules [E04.2] 03/03/2011 09/23/2020 Atrial fibrillation (HCC) [I48.91] 01/14/2014 10/10/2017 Centrilobular emphysema (HCC) [J43.2] 01/14/2014 11/08/2022 Paroxysmal atrial fibrillation (HCC) [I48.0] Hypertension, essential [I10] 06/23/2015 Chronic anticoagulation [Z79.01] 06/23/2015 Fatigue [R53.83] 11/04 (more content not included)... [facility] 01-16-2023 Note HNO ID: [id number] Author: Jolene Emery RN Service: ? Author Type: Registered Nurse Type: Progress Notes Filed: 01/16/2023 11:07 AM Note Text: [facility] Telephonic Outreach Provider Action/CAROLYN Breaking out on arm and upper back - [facility] diagnosed shingles. She is currently taking medication valacyclovir. She will continue to monitor and call if symptoms are same or worsening over the next couple days. At this time she feels symptoms are the same. Patient had EGD at [facility] set up from 02/14. Contacted for: Routine Telephonic Outreach Contact made with patient: Yes Patient identified by name and date of . Discussed care with patient Are you experiencing any new or worsening symptoms you need to talk about today? No Disease Specific Do you check your blood pressure at home? No Do you have new or worsening shortness of breath with activity? No Do you have new or worsening trouble breathing while lying flat? No Do you have new or worsening swelling of legs, feet or ankles? No Do you feel like you are dehydrated for any reason, including not being able to eat or drink normally, or having less urine/much darker urine than normal for you? No Do you check your daily weight at home? No and Do you have new or worsening cough? No Do you have new or worsening wheezing? No Do you need to use your rescue (Albuterol) inhaler or nebulizer more often than normal? No Based on gang sawyer, the following disposition is advised: No symptoms or symptoms present, not severe. Routed to: No Action Needed FAVIOLA Education Provided this Outreach: No Jolene Emery RN January 16, 2023 10:53 AM [facility] 01-16-2023 History of Presen t illness Narrative [facility] Telephonic Outreach Provider Too/CAROLYN Breaking out on arm and upper back - [facility] diagnosed shingles. She is currently taking medication valacyclovir. She will continue to monitor and call if symptoms are same or worsening over the next couple days. At this time she feels symptoms are the same. Patient had EGD at [facility] set up from 02/14. Contacted for: Routine Telephonic Outreach Contact made with patient: Yes Patient identified by name and date of . Discussed care with patient Are you experiencing any new or worsening symptoms you need to talk about today? No Disease Specific Do you check your blood pressure at home? No Do you have new or worsening shortness of breath with activity? No Do you have new or worsening trouble breathing while lying flat? No Do you have new or worsening swelling of legs, feet or ankles? No Do you feel like you are dehydrated for any reason, including not being able to eat or drink normally, or having less urine/much darker urine than normal for you? No Do you check your daily weight at home? No and Do you have new or worsening cough? No Do you have new or worsening wheezing? No Do you need to use your rescue (Albuterol) inhaler or nebulizer more often than normal? No Based on gang sawyer, the following disposition is advised: No symptoms or symptoms present, not severe. Routed to: No Action Needed FAVIOLA Education Provided this Outreach: No Jolene Emery RN January 16, 2023 10:53 AM documented in this encounter [facility] 01-14-2023 Miscellaneous Notes Patient notified of results, verbalized understanding of instructions given. Heena Lynch MA Please let patient know that culture did confirm shingles. Finish medication as discussed at visit. Follow up with Dr. Bonilla as needed. Shannon Chiu APRN.TRICIA documented in this encounter [facility] 01-13-2023 Note HNO ID: [id number] Author: Shanta Logan APRN.TRICIA Service: ? Author Type: Nurse Practitioner Type: Progress Notes Filed: 01/13/2023 7:14 PM Note Text: Subjective Patient came in with complaints of painful rash to her left arm and upper back. Patient says its been there a few days. Patient says it does itch at times. Patient has not gotten into anything that would cause a rash according to patient. Patient has had chickenpox as a child. The history is provided by the patient. No speech and language clinician was used. Rash Review of Systems Constitutional: Negative. Skin: Positive for rash. Objective Physical Exam Constitutional: Appearance: Normal appearance. Pulmonary: Effort: Pulmonary effort is normal. Skin: Neurological: Mental Status: She is alert. PAST MEDICAL HISTORY Diagnosis Date A-fib ([facility]) Class 1 congestive heart failure, unspecified failure chronicity, systolic ([facility]) 11/21/2019 Dysphagia, unspecified(787.20) Esophageal reflux Esophagitis, unspecified Marfan's syndrome Moderate mitral regurgitation 06/18/2021 04/27/21 Echo at [facility]. Pleural effusion, right 05/05/2020 CXR 11/18/19 and 05/04/20. Unspecified essential hypertension PAST SURGICAL HISTORY Procedure Laterality Date COLONOSCOPY FLX DX W/COLLJ SPEC WHEN PFRMD 10/16/14 Colonoscopy EGD TRANSORAL BIOPSY SINGLE/MULTIPLE 01/13/09 ESOPHAGOGASTRODUODENOSCOPY TRANSORAL DIAGNOSTIC 10/16/14 EGD FNA WITH IMAGING 03/16/11 U/S FNA left mid/lower lobe thyroid nodule MAMMOGRAM BILATERAL August 2010? PAST SURGICAL HISTORY OF tubial pregnacy/tube removed PAST SURGICAL HISTORY OF eye surgery bilateral TOTAL ABDOMINAL HYSTERECT W/WO RMVL TUBE OVARY Hysterectomy, MICHOACANO ALLERGIES Crestor [Rosuvastatin Calcium], Ibuprofen, Prevnar 13 [Pneumoc 13-Chu Conj-Dip Cr(Pf)], and Latex MEDICATIONS valACYclovir (VALTREX) 1 gram Take 1 tablet by mouth twice daily for 7 days. omeprazole (PRILOSEC) 40 mg capsule Take 1 capsule by mouth once daily. warfarin (COUMADIN) 4 mg tablet 4 mg on Monday and , 2 mg all other days gabapentin (NEURONTIN) 100 mg capsule Take 1 capsule by mouth twice daily for 180 days. calcitonin,salmon, (MIACALCIN, FORTICAL) 200 unit/actuation nasal spray Use 1 Baldwin in the nose once daily. Back Brace misc 1 Each once daily. Custom made Metaxalone 400 mg tab Take 1 tablet by mouth three times daily as needed. metoprolol tartrate, short acting, (LOPRESSOR) 50 mg tablet Take 1 tablet by mouth twice daily. amiodarone (PACERONE) 200 mg tablet Take 0.5 tablets by mouth once daily. dilTIAZem CD (CARDIZEM CD, CARTIA XT) 240 mg 24 hr capsule Take 240 mg by mouth once daily. furosemide (LASIX) 40 mg tablet Take 1 tablet by mouth twice daily. WALKER ROLLATOR SEAT WITH 6 WHEELS - RED Daily use R26.81 Gait instability (primary encounter diagnosis) potassium chloride 20 mEq TbER Take 1 tablet by mouth twice daily. albuterol HFA (PROVENTIL HFA, VENTOLIN HFA) 90 mcg/actuation inhaler Inhale 2 Puffs as instructed every 4 hours as needed. 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 MULTIVITAMIN ORAL Take 1 tablet by mouth once daily. FAMILY HISTORY Problem Relation Age of Onset Diabetes Mother Cancer Mother other (marfan syndrome) Mother GI Father ulcer Diabetes Sister other (marfan syndrome) Brother x2 Stroke Maternal Grandmother Hypertension Sister Hypertension Brother COPD Brother Emphysema COPD Daughter Emphysema Social History Tobacco Use Smoking status: Never Smokeless tobacco: Never Tobacco comments: Spouse smoked cigars in home until about 2003. Vaping Use Vaping Use: Never used Substance Use Topics Alcohol use: No Drug use: No ASSESSMENT/PLAN: 1. Herpes zoster without complication - ICD9: 053.9, ICD10: B02.9 (primary diagnosis) - VALACYCLOVIR 1 GRAM TABLET 2. Rash - ICD9: 782.1, ICD10: R21 - HSV1,2/VZV NAAT LESION Patient was educated about proper use of medication supportive therapies. Patient will follow up with signs and symptoms seem to be get worse not better. Shanta Logan APRN.[facility] 01-13-2023 History of Presen t illness Narrative Images from the original note were not included. Subjective Patient came in with complaints of painful rash to her left arm and upper back. Patient says its been there a few days. Patient says it does itch at times. Patient has not gotten into anything that would cause a rash according to patient. Patient has had chickenpox as a child. The history is provided by the patient. No speech and language clinician was used. Rash Review of Systems Constitutional: Negative. Skin: Positive for rash. Objective Physical Exam Constitutional: Appearance: Normal appearance. Pulmonary: Effort: Pulmonary effort is normal. Skin: Neurological: Mental Status: She is alert. PAST MEDICAL HISTORY Diagnosis Date A-fib ([facility]) Class 1 congestive heart failure, unspecified failure chronicity, systolic ([facility] [facility] 11/21/2019 Dysphagia, unspecified(787.20) Esophageal reflux Esophagitis, unspecified Marfan's syndrome Moderate mitral regurgitation 06/18/2021 04/27/21 Echo at [facility]. Pleural effusion, right 05/05/2020 CXR 11/18/19 and 05/04/20. Unspecified essential hypertension PAST SURGICAL HISTORY Procedure Laterality Date COLONOSCOPY FLX DX W/COLLJ SPEC WHEN PFRMD 10/16/14 Colonoscopy EGD TRANSORAL BIOPSY SINGLE/MULTIPLE 01/13/09 ESOPHAGOGASTRODUODENOSCOPY TRANSORAL DIAGNOSTIC 10/16/14 EGD FNA WITH IMAGING 03/16/11 U/S FNA left mid/lower lobe thyroid nodule MAMMOGRAM BILATERAL August 2010? PAST SURGICAL HISTORY OF tubial pregnacy/tube removed PAST SURGICAL HISTORY OF eye surgery bilateral TOTAL ABDOMINAL HYSTERECT W/WO RMVL TUBE OVARY Hysterectomy, MICHOACANO ALLERGIES Crestor [Rosuvastatin Calcium], Ibuprofen, Prevnar 13 [Pneumoc 13-Chu Conj-Dip Cr(Pf)], and Latex MEDICATIONS valACYclovir (VALTREX) 1 gram Take 1 tablet by mouth twice daily for 7 days. omeprazole (PRILOSEC) 40 mg capsule Take 1 capsule by mouth once daily. warfarin (COUMADIN) 4 mg tablet 4 mg on Monday and , 2 mg all other days gabapentin (NEURONTIN) 100 mg capsule Take 1 capsule by mouth twice daily for 180 days. calcitonin,salmon, (MIACALCIN, FORTICAL) 200 unit/actuation nasal spray Use 1 Baldwin in the nose once daily. Back Brace misc 1 Each once daily. Custom made Metaxalone 400 mg tab Take 1 tablet by mouth three times daily as needed. metoprolol tartrate, short acting, (LOPRESSOR) 50 mg tablet Take 1 tablet by mouth twice daily. amiodarone (PACERONE) 200 mg tablet Take 0.5 tablets by mouth once daily. dilTIAZem CD (CARDIZEM CD, CARTIA XT) 240 mg 24 hr capsule Take 240 mg by mouth once daily. furosemide (LASIX) 40 mg tablet Take 1 tablet by mouth twice daily. WALKER ROLLATOR SEAT WITH 6 WHEELS - RED Daily use R26.81 Gait instability (primary encounter diagnosis) potassium chloride 20 mEq TbER Take 1 tablet by mouth twice daily. albuterol HFA (PROVENTIL HFA, VENTOLIN HFA) 90 mcg/actuation inhaler Inhale 2 Puffs as instructed every 4 hours as needed. 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 MULTIVITAMIN ORAL Take 1 tablet by mouth once daily. FAMILY HISTORY Problem Relation Age of Onset Diabetes Mother Cancer Mother other (marfan syndrome) Mother GI Father ulcer Diabetes Sister other (marfan syndrome) Brother x2 Stroke Maternal Grandmother Hypertension Sister Hypertension Brother COPD Brother Emphysema COPD Daughter Emphysema Social History Tobacco Use Smoking status: Never Smokeless tobacco: Never Tobacco comments: Spouse smoked cigars in home until about 2003. Vaping Use Vaping Use: Never used Substance Use Topics Alcohol use: No Drug use: No ASSESSMENT/PLAN: 1. Herpes zoster without complication - ICD9: 053.9, ICD10: B02.9 (primary diagnosis) - VALACYCLOVIR 1 GRAM TABLET 2. Rash - ICD9: 782.1, ICD10: R21 - HSV1,2/VZV NAAT LESION Patient was educated about proper use of medication supportive therapies. Patient will follow up with signs and symptoms seem to be get worse not better. Shanta Logan APRN.TRICIA documented in this encounter [facility] 01-13-2023 Miscellaneous Notes Pt calling in and states she had her to his physician yesterday. That physician noticed that pt had blisters on her left arm. He felt it might be shingles and instructed her to call her PCP. Pt states she has blisters and rash starting at the back of her neck, upper back, left shoulder and down her left arm to her wrist. Started 2-3 days ago. Pt states now painful 5/10 and having some itching. State blisters are about the size of a dime or a little smaller. Denies any seepage from the blisters. Pt instructed to come into [facility] as soon as possible. Pt agreeable. documented in this encounter [facility] 01-04-2023 Miscellaneous Notes Pharmacist from [facility] calling and requesting refills on medication. Called and spoke with patient, patient switched to [facility] pharmacy and does need refills. Last Office Visit: 11/08/2022 Future Office Visit: 05/10/2023 Requested Prescriptions Pending Prescriptions Disp Refills omeprazole (PRILOSEC) 40 mg capsule 90 capsule 3 Sig: Take 1 capsule by mouth once daily. Date of Last Labs: 12/23/2022 documented in this encounter [facility] 12-23-2022 Note HNO ID: [id number] Author: Wes Bonilla MD Service: ? Author Type: Physician Type: Progress Notes Filed: 12/23/2022 1:53 PM Note Text: agree [facility] 12-23-2022 Note HNO ID: [id number] Author: Yanely Posadas RN Service: ? Author Type: ? Type: Progress Notes Filed: 12/23/2022 1:53 PM Note Text: patient had inr completed at [facility] patients inr is 2.1 (patients inr range is 2.0-3.0) patient is currently taking 4mg Tues,Thurs Sun and 2mg all other days patients last dose change was on 12/02/22 due to a high level of 3.4 (dose at that time was 2mg Mon,Wed,Fri and 4mg all other days) patient has had no changes in medication and no missed doses and no change in diet Advised patient to continue on the same dose(s) and that they would only be contacted regarding dosage and follow up instructions after review with provider, if a change is needed. Written instructions given and patient verbalized understanding. Presently scheduled in 4 weeks (01/20/23) for follow up INR. [facility] 12-16-2022 Note HNO ID: [id number] Author: Michelle Rocha RN Service: ? Author Type: Registered Nurse Type: Progress Notes Filed: 12/16/2022 12:37 PM Note Text: CDM Telephonic Outreach Provider Action/FYI Pt denies new or worsening CDM symptoms. Pt states she only takes her BP when she is not feeling well. States it has been good at the doctor lately. Pt states she has an appointment with Dr. Evans, surgeon at [facility] on 12/22.It is due to the results of a recent CT scan. Pt noted she did not realize she had coumadin clinic the same day and would like to change it if okay to have INR checked another day. Contacted PCP, Dr. Bonilla's office and spoke to Deana confirming having coumadin finger stick a day before or after December 22 would be fine. Pt will call to reschedule coumadin stick as well a number of other ordered labs concurrently. Patient denies further questions, concerns at this time. End outreach. Contacted for: Routine Telephonic Outreach Contact made with patient: Yes Patient identified by name and date of . Discussed care with patient Are you experiencing any new or worsening symptoms you need to talk about today? No Disease Specific Do you check your blood pressure at home? No Do you have new or worsening shortness of breath with activity? No Do you have new or worsening cough? No Do you have new or worsening wheezing? No Do you need to use your rescue (Albuterol) inhaler or nebulizer more often than normal? No Based on gang sawyer, the following disposition is advised: No symptoms or symptoms present, not severe. Routed to: No Action Needed FAVIOLA Education Provided this Outreach: No Michelle Rocha RN December 16, 2022 12:24 PM [facility] 12-15-2022 Note Patient Outreach ([place] [facility] NIMISHA CEJA ([id number]) 1945 F Date Time Provider Department 12/15/22 MICHELLE ROCHA During your visit today, we recorded the following information about you: Michelle Rocha RN 12/16/2022 12:37 PM Signed CDM Telephonic Outreach Provider Action/FYI Pt denies new or worsening CDM symptoms. Pt states she only takes her BP when she is not feeling well. States it has been good at the doctor lately. Pt states she has an appointment with Dr. Evans, surgeon at [facility] on 12/22.It is due to the results of a recent CT scan. Pt noted she did not realize she had coumadin clinic the same day and would like to change it if okay to have INR checked another day. Contacted PCP, Dr. Bonilla's office and spoke to Deana confirming having coumadin finger stick a day before or after December 22 would be fine. Pt will call to reschedule coumadin stick as well a number of other ordered labs concurrently. Patient denies further questions, concerns at this time. End outreach. Contacted for: Routine Telephonic Outreach Contact made with patient: Yes Patient identified by name and date of . Discussed care with patient Are you experiencing any new or worsening symptoms you need to talk about today? No Disease Specific Do you check your blood pressure at home? No Do you have new or worsening shortness of breath with activity? No Do you have new or worsening cough? No Do you have new or worsening wheezing? No Do you need to use your rescue (Albuterol) inhaler or nebulizer more often than normal? No Based on gang sawyer, the following disposition is advised: No symptoms or symptoms present, not severe. Routed to: No Action Needed FAVIOLA Education Provided this Outreach: No Michelle Rocha RN December 16, 2022 12:24 PM Allergies As of Date: 12/15/2022 Noted Allergy Reaction CRESTOR (ROSUVASTATIN CALCIUM) 01/19/2011 14 - Other: See Comments Comments: Myalgia. IBUPROFEN 12/04/2008 14 - Other: See Comments Comments: dizzy PREVNAR 13 (PNEUMOC 13-CHU CONJ-D*07/27/2015 2 - Rash Comments: Presumed reaction to Prevnar. LATEX 12/08/2008 2 - Rash Comments: Local contact rash. Date Reviewed: 11/08/2022 Reviewed by: Seema Garcia - Fully Assessed Reason for Visit: CDM [Other] Cmt: Telephonic outreach Prescriptions as of 12/16/2022 - ferrous sulfate 325 mg (65 mg iron) tablet Take 1 tablet by mouth once daily. - warfarin (COUMADIN) 4 mg tablet 4 mg on Monday and , 2 mg all other days - gabapentin (NEURONTIN) 100 mg capsule Take 1 capsule by mouth twice daily for 180 days. - calcitonin,salmon, (MIACALCIN, FORTICAL) 200 unit/actuation nasal spray Use 1 Baldwin in the nose once daily. - Back Brace misc 1 Each once daily. Custom made - Metaxalone 400 mg tab Take 1 tablet by mouth three times daily as needed. - omeprazole (PRILOSEC) 40 mg capsule Take 1 capsule by mouth once daily. - metoprolol tartrate, short acting, (LOPRESSOR) 50 mg tablet Take 1 tablet by mouth twice daily. - amiodarone (PACERONE) 200 mg tablet Take 0.5 tablets by mouth once daily. - dilTIAZem CD (CARDIZEM CD, CARTIA XT) 240 mg 24 hr capsule Take 240 mg by mouth once daily. - furosemide (LASIX) 40 mg tablet Take 1 tablet by mouth twice daily. - WALKER ROLLATOR SEAT WITH 6 WHEELS - RED Daily use R26.81 Gait instability (primary encounter diagnosis) - potassium chloride 20 mEq TbER Take 1 tablet by mouth twice daily. - albuterol HFA (PROVENTIL HFA, VENTOLIN HFA) 90 mcg/actuation inhaler Inhale 2 Puffs as instructed every 4 hours as needed. 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 - MULTIVITAMIN ORAL Take 1 tablet by mouth once daily. 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] Esophageal reflux [K21.9] Nontoxic multinodular goiter [E04.2] 12/08/2008 05/08/2018 Gastrointestinal malfunction arising from menta*12/09/2008 10/10/2017 Esophagitis, unspecified [K20.90] 01/13/2009 10/10/2017 Hypertension [I10] 01/19/2011 06/23/2015 Hyperlipidemia [E78.5] 01/19/2011 History of polymyalgia rheumatica [Z87.39] 01/19/2011 Multiple thyroid nodules [E04.2] 03/03/2011 09/23/2020 Atrial fibrillation (HCC) [I48.91] 01/14/2014 10/10/2017 Centrilobular emphysema (HCC) [J43.2] 01/14/2014 11/08/2022 Paroxysmal atrial fibrillation (HCC) [I48.0] Hypertension, essential [I10] 06/23/2015 Chronic anticoagul (more content not included)... [facility] 12-08-2022 Note HNO ID: [id number] Author: Wes Bonilla MD Service: ? Author Type: Physician Type: Progress Notes Filed: 12/08/2022 2:58 PM Note Text: agree [facility] 12-08-2022 Note HNO ID: [id number] Author: Yanely Posadas RN Service: ? Author Type: ? Type: Progress Notes Filed: 12/08/2022 2:58 PM Note Text: patient had inr completed at [facility] patients inr is 2.7 (patients inr range is 2.0-3.0) patient is currently taking 4mg Tues,Th,Mon and 2mg all other days patients last dose change was on 12/02/22 due to a high level of 3.4 (dose at that time was 2mg Mon,Wed,Fri and 4mg all other days) patient has had no changes in medication except for coumadin and no uninstructed missed doses and no change in diet Advised patient to continue on the same dose(s) and that they would only be contacted regarding dosage and follow up instructions after review with provider, if a change is needed. Written instructions given and patient verbalized understanding. Presently scheduled in 2 weeks (12/22/22) for follow up INR since this is the first normal reading after dose change [facility] 12-08-2022 History of Presen t illness Narrative agree patient had inr completed at [facility] patients inr is 2.7 (patients inr range is 2.0-3.0) patient is currently taking 4mg Tues,Thurs,Sun and 2mg all other days patients last dose change was on 12/02/22 due to a high level of 3.4 (dose at that time was 2mg Mon,Wed,Fri and 4mg all other days) patient has had no changes in medication except for coumadin and no uninstructed missed doses and no change in diet Advised patient to continue on the same dose(s) and that they would only be contacted regarding dosage and follow up instructions after review with provider, if a change is needed. Written instructions given and patient verbalized understanding. Presently scheduled in 2 weeks (12/22/22) for follow up INR since this is the first normal reading after dose change documented in this encounter [facility] 12-02-2022 Note HNO ID: [id number] Author: Rachelle Villa Ma Service: ? Author Type: ? Type: Progress Notes Filed: 12/02/2022 3:09 PM Note Text: Patient was notified and verbalized understanding Tracker updated Rachelle Villa Ma [facility] 12-02-2022 Note HNO ID: [id number] Author: Wes Bonilla MD Service: ? Author Type: Physician Type: Progress Notes Filed: 12/02/2022 3:09 PM Note Text: Hold today, then change to 2 mg a day, except 4 mg on Sun, T, TH. Recheck one week [facility] 12-02-2022 Note HNO ID: [id number] Author: Rachelle Villa Ma Service: ? Author Type: ? Type: Progress Notes Filed: 12/02/2022 3:09 PM Note Text: patient had inr completed at [facility] patients inr is 3.4 (patients inr range is 2.0-3.0) patient is currently taking 2mg Mon,Wed,Fri and 4mg all other days patients last dose change was on 11/08/22 due to a low level of 1.5 (dose at that time was 4mg Tues,Thurs,Sat and 2mg all other days) patient has had no changes in medication and no missed doses and no change in diet FYI- last week patients inr level was high at 3.2, patient was instructed to continue same dose and recheck in 1 week which she did Patient has been instructed to hold coumadin until contacted Advised patient that they would be contacted regarding medication dose and when to follow up after information is reviewed by provider. After provider review please contact the patient with information and schedule follow up appointment with coumadin clinic. ok to leave a detailed message if no answer FYI- patient has been scheduled for a 1 week follow up inr on 12/08/22 [facility] 12-02-2022 History of Presen t illness Narrative Patient was notified and verbalized understanding Tracker updated Rachelle Villa Ma Hold today, then change to 2 mg a day, except 4 mg on Mon, , . Recheck one week patient had inr completed at [facility] patients inr is 3.4 (patients inr range is 2.0-3.0) patient is currently taking 2mg Mon,Wed,Fri and 4mg all other days patients last dose change was on 11/08/22 due to a low level of 1.5 (dose at that time was 4mg Tues,Thurs,Sat and 2mg all other days) patient has had no changes in medication and no missed doses and no change in diet FYI- last week patients inr level was high at 3.2, patient was instructed to continue same dose and recheck in 1 week which she did Patient has been instructed to hold coumadin until contacted Advised patient that they would be contacted regarding medication dose and when to follow up after information is reviewed by provider. After provider review please contact the patient with information and schedule follow up appointment with coumadin clinic. ok to leave a detailed message if no answer FYI- patient has been scheduled for a 1 week follow up inr on 12/08/22 documented in this encounter [facility] 11-24-2022 Note HNO ID: [id number] Author: Elisabeth Bettencourt Ma Service: ? Author Type: ? Type: Progress Notes Filed: 11/24/2022 3:04 PM Note Text: Detailed message left on pt machine. Elisabeth Bettencourt Ma [facility] 11-24-2022 Note HNO ID: [id number] Author: Eddie Nunez MD Service: ? Author Type: Physician Type: Progress Notes Filed: 11/24/2022 3:02 PM Note Text: INR slightly high on current dosage. No change. Recheck in 1 week. [facility] 11-24-2022 Note HNO ID: [id number] Author: Yanely Posadas RN Service: ? Author Type: ? Type: Progress Notes Filed: 11/24/2022 3:04 PM Note Text: patient had inr completed at [facility] patients inr is 3.2 (patients inr range is 2.0-3.0) patient is currently taking 2mg Mon,Wed,Fri and 4mg all other days patients last dose change was on 11/08/22 due to a low level of 1.5 (dose at that time was 4mg Tues,Thurs Sat and 2mg all other days) patient has had no changes in medication except for coumadin and no missed doses and no change in diet Advised patient that they would be contacted regarding medication dose and when to follow up after information is reviewed by provider. After provider review please contact the patient with information and schedule follow up appointment with coumadin clinic. ok to leave a detailed message if no answer FYI- patient has been scheduled for a 1 week follow up inr on 12/02/22 [facility] 11-24-2022 History of Presen t illness Narrative Detailed message left on pt machine. Elisabeth Bettencourt Ma INR slightly high on current dosage. No change. Recheck in 1 week. patient had inr completed at [facility] patients inr is 3.2 (patients inr range is 2.0-3.0) patient is currently taking 2mg Mon,Wed,Fri and 4mg all other days patients last dose change was on 11/08/22 due to a low level of 1.5 (dose at that time was 4mg ,urs Sat and 2mg all other days) patient has had no changes in medication except for coumadin and no missed doses and no change in diet Advised patient that they would be contacted regarding medication dose and when to follow up after information is reviewed by provider. After provider review please contact the patient with information and schedule follow up appointment with coumadin clinic. ok to leave a detailed message if no answer FYI- patient has been scheduled for a 1 week follow up inr on 12/02/22 documented in this encounter [facility] 11-08-2022 Note HNO ID: [id number] Author: Wes Bonilla MD Service: ? Author Type: Physician Type: Progress Notes Filed: 11/08/2022 3:57 PM Note Text: Instructed to increase to 4 mg , , Mon, Monday, 2 mg a day rest of the week. Recheck one week. Patient notified in office. [facility] 11-08-2022 Note HNO ID: [id number] Author: Wes Bonilla MD Service: ? Author Type: Physician Type: Progress Notes Filed: 11/08/2022 4:01 PM Note Text: Patient presents with: Abdominal Pain: Follow up HPI: Patient presents today for office visit for follow up of epigastric pain. Still has complaints of intermittent bloating of stomach and hearing strange sounds in belly. Rare heartburn. No issues with the bowels. No bloody or black stools. No constipation or vomiting or diarrhea. Denies pain. Reviewed last labs. Renal function is stable. Alk phos is old and work up negative. Her back is overall ok. No chest pain or shortness of breath. No palpitations. Sees pulmonary again soon. They have followed her lungs. Does not have to return to see urology. Previous OV note: Abdomen is swelling over last couple, gradually bigger. Appetite pretty good No N/V. Some reflux/ heartburn despite omeprazole. BMs daily, brown, formed. No change in urination. Hx tubal 30 years ago Hx of remaining ovary, tube and uterus removed. No hx kidney stones. X-ray completed and showed normal gas pattern with no obstruction. Sees Dr Calle, for her thyroid, Dr. Mariee for her lungs and [facility] for her heart. Bone scan done. Normal. US abdomen: IMPRESSION: Small gallstones and sludge within the gallbladder. Common duct is upper limits of normal in caliber. No gallbladder distention, wall thickening, or pericholecystic fluid. Suboptimal visualization due to overlying bowel gas. Sonographic appearance of the spleen is normal. Incidental hepatic cysts. See labs from Tobi's visit: Component Latest Ref Rng AND Units 09/19/2022 09/20/2022 WBC 3.70 - 11.00 k/uL 9.96 RBC 3.90 - 5.20 m/uL 5.03 Hemoglobin 11.5 - 15.5 g/dL 12.2 Hematocrit 36.0 - 46.0 % 39.9 MCV 80.0 - 100.0 fL 79.3 (L) MCH 26.0 - 34.0 pg 24.3 (L) MCHC 30.5 - 36.0 g/dL 30.6 RDW-CV 11.5 - 15.0 % 17.3 (H) Platelet Count 150 - 400 k/uL 422 (H) MPV 9.0 - 12.7 fL 8.9 (L) Neut% % 64.4 Abs Neut (ANC) 1.45 - 7.50 k/uL 6.42 Lymph% % 18.3 Abs Lymph 1.00 - 4.00 k/uL 1.82 Mchenry% % 14.5 Abs Mchenry <0.87 k/uL 1.44 (H) Eosin% % 1.4 Abs Eosin <0.46 k/uL 0.14 Baso% % 0.8 Abs Baso <0.11 k/uL 0.08 Immature Gran % % 0.6 IMMATURE GRANS (ABS) <0.10 k/uL 0.06 NRBC /100 WBC 0.0 Absolute nRBC <0.01 k/uL <0.01 DTYPE Auto Protein, Total 6.3 - 8.0 g/dL 7.8 Albumin 3.9 - 4.9 g/dL 4.2 Calcium 8.5 - 10.2 mg/dL 8.9 Bilirubin, Total 0.2 - 1.3 mg/dL 0.3 Alkaline Phosphatase 34 - 123 U/L 125 (H) AST 13 - 35 U/L 22 ALT 7 - 38 U/L 18 Glucose 74 - 99 mg/dL 96 BUN 7 - 21 mg/dL 25 (H) Creatinine 0.58 - 0.96 mg/dL 1.18 (H) Sodium 136 - 144 mmol/L 135 (L) Potassium 3.7 - 5.1 mmol/L 4.1 Chloride 97 - 105 mmol/L 95 (L) CO2 22 - 30 mmol/L 27 Anion Gap 9 - 18 mmol/L 13 eGFR >=60 mL/min/1.73mA? 48 (L) Color Yellow Light Yellow Clarity Clear Clear Glucose, Urine Trace, Negative Negative Bilirubin, Urine Negative Negative Ketones, Urine Trace, Negative Negative Specific [place], Ur 1.005 - 1.030 1.014 Hemoglobin/Blood,Ur Negative, Trace Negative pH, Urine 5.0 - 8.0 6.5 Protein, Urine Trace, Negative Negative Urobilinogen Negative Negative Nitrites Negative Negative Leukest Negative, 25 Randal/uL Negative Lipase 16 - 61 U/L 42 CRP <0.9 mg/dL 0.6 MEDICATIONS: Current Outpatient Medications Medication Sig warfarin (COUMADIN) 4 mg tablet 4 mg on Monday and , 2 mg all other days gabapentin (NEURONTIN) 100 mg capsule Take 1 capsule by mouth twice daily for 180 days. calcitonin,salmon, (MIACALCIN, FORTICAL) 200 unit/actuation nasal spray Use 1 Baldwin in the nose once daily. Back Brace misc 1 Each once daily. Custom made Metaxalone 400 mg tab Take 1 tablet by mouth three times daily as needed. omeprazole (PRILOSEC) 40 mg capsule Take 1 capsule by mouth once daily. metoprolol tartrate, short acting, (LOPRESSOR) 50 mg tablet Take 1 tablet by mouth twice daily. amiodarone (PACERONE) 200 mg tablet Take 0.5 tablets by mouth once daily. dilTIAZem CD (CARDIZEM CD, CARTIA XT) 240 mg 24 hr capsule Take 240 mg by mouth once daily. furosemide (LASIX) 40 mg tablet Take 1 tablet by mouth twice daily. WALKER ROLLATOR SEAT WITH 6 WHEELS - RED Daily use R26.81 Gait instability (primary encounter diagnosis) potassium chloride 20 mEq TbER Take 1 tablet by mouth twice daily. albuterol HFA (PROVENTIL HFA, VENTOLIN HFA) 90 mcg/actuation inhaler Inhale 2 Puffs as instructed every 4 hours as needed. 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 MULTIVITAMIN ORAL Take 1 tablet by mouth once daily. No current facility-administered medi (more content not included)... [facility] 11-08-2022 Note HNO ID: [id number] Author: Yanely Posadas RN Service: ? Author Type: ? Type: Progress Notes Filed: 11/08/2022 3:57 PM Note Text: patient had inr completed at [facility] patients inr is 1.5 (patients inr range is 2.0-3.0) patient is currently taking 4mg Tues,Thurs,Sat and 2mg all other days patients last dose change was on 10/27/22 due to a low level of 1.7 (dose at that time was 4mg Mon,Thurs and 2mg all other days) patient has had no changes in medication except for coumadin and no missed doses and no change in diet patient has appt with pcp and has been instructed to discuss results at appt patient has been scheduled for a 2 week follow up inr on 11/22/22 [facility] 11-08-2022 History of Presen t illness Narrative Instructed to increase to 4 mg T, TH, Mon, Monday, 2 mg a day rest of the week. Recheck one week. Patient notified in office. patient had inr completed at [facility] patients inr is 1.5 (patients inr range is 2.0-3.0) patient is currently taking 4mg Tues,Th,Sat and 2mg all other days patients last dose change was on 10/27/22 due to a low level of 1.7 (dose at that time was 4mg Mon,Thurs and 2mg all other days) patient has had no changes in medication except for coumadin and no missed doses and no change in diet patient has appt with pcp and has been instructed to discuss results at appt patient has been scheduled for a 2 week follow up inr on 11/22/22 documented in this encounter [facility] 11-08-2022 History of Presen t illness Narrative Patient presents with: Abdominal Pain: Follow up HPI: Patient presents today for office visit for follow up of epigastric pain. Still has complaints of intermittent bloating of stomach and hearing strange sounds in belly. Rare heartburn. No issues with the bowels. No bloody or black stools. No constipation or vomiting or diarrhea. Denies pain. Reviewed last labs. Renal function is stable. Alk phos is old and work up negative. Her back is overall ok. No chest pain or shortness of breath. No palpitations. Sees pulmonary again soon. They have followed her lungs. Does not have to return to see urology. Previous OV note: Abdomen is swelling over last couple, gradually bigger. Appetite pretty good No N/V. Some reflux/ heartburn despite omeprazole. BMs daily, brown, formed. No change in urination. Hx tubal 30 years ago Hx of remaining ovary, tube and uterus removed. No hx kidney stones. X-ray completed and showed normal gas pattern with no obstruction. Sees Dr Calle, for her thyroid, Dr. Mariee for her lungs and [facility] for her heart. Bone scan done. Normal. US abdomen: IMPRESSION: Small gallstones and sludge within the gallbladder. Common duct is upper limits of normal in caliber. No gallbladder distention, wall thickening, or pericholecystic fluid. Suboptimal visualization due to overlying bowel gas. Sonographic appearance of the spleen is normal. Incidental hepatic cysts. See labs from Tobi's visit: Component Latest Ref Rng & Units 09/19/2022 09/20/2022 WBC 3.70 - 11.00 k/uL 9.96 RBC 3.90 - 5.20 m/uL 5.03 Hemoglobin 11.5 - 15.5 g/dL 12.2 Hematocrit 36.0 - 46.0 % 39.9 MCV 80.0 - 100.0 fL 79.3 (L) MCH 26.0 - 34.0 pg 24.3 (L) MCHC 30.5 - 36.0 g/dL 30.6 RDW-CV 11.5 - 15.0 % 17.3 (H) Platelet Count 150 - 400 k/uL 422 (H) MPV 9.0 - 12.7 fL 8.9 (L) Neut% % 64.4 Abs Neut (ANC) 1.45 - 7.50 k/uL 6.42 Lymph% % 18.3 Abs Lymph 1.00 - 4.00 k/uL 1.82 Mchenry% % 14.5 Abs Mchenry <0.87 k/uL 1.44 (H) Eosin% % 1.4 Abs Eosin <0.46 k/uL 0.14 Baso% % 0.8 Abs Baso <0.11 k/uL 0.08 Immature Gran % % 0.6 IMMATURE GRANS (ABS) <0.10 k/uL 0.06 NRBC /100 WBC 0.0 Absolute nRBC <0.01 k/uL <0.01 DTYPE Auto Protein, Total 6.3 - 8.0 g/dL 7.8 Albumin 3.9 - 4.9 g/dL 4.2 Calcium 8.5 - 10.2 mg/dL 8.9 Bilirubin, Total 0.2 - 1.3 mg/dL 0.3 Alkaline Phosphatase 34 - 123 U/L 125 (H) AST 13 - 35 U/L 22 ALT 7 - 38 U/L 18 Glucose 74 - 99 mg/dL 96 BUN 7 - 21 mg/dL 25 (H) Creatinine 0.58 - 0.96 mg/dL 1.18 (H) Sodium 136 - 144 mmol/L 135 (L) Potassium 3.7 - 5.1 mmol/L 4.1 Chloride 97 - 105 mmol/L 95 (L) CO2 22 - 30 mmol/L 27 Anion Gap 9 - 18 mmol/L 13 eGFR >=60 mL/min/1.73m 48 (L) Color Yellow Light Yellow Clarity Clear Clear Glucose, Urine Trace, Negative Negative Bilirubin, Urine Negative Negative Ketones, Urine Trace, Negative Negative Specific [place], Ur 1.005 - 1.030 1.014 Hemoglobin/Blood,Ur Negative, Trace Negative pH, Urine 5.0 - 8.0 6.5 Protein, Urine Trace, Negative Negative Urobilinogen Negative Negative Nitrites Negative Negative Leukest Negative, 25 Randal/uL Negative Lipase 16 - 61 U/L 42 CRP <0.9 mg/dL 0.6 MEDICATIONS: Current Outpatient Medications Medication Sig warfarin (COUMADIN) 4 mg tablet 4 mg on Monday and , 2 mg all other days gabapentin (NEURONTIN) 100 mg capsule Take 1 capsule by mouth twice daily for 180 days. calcitonin,salmon, (MIACALCIN, FORTICAL) 200 unit/actuation nasal spray Use 1 Baldwin in the nose once daily. Back Brace misc 1 Each once daily. Custom made Metaxalone 400 mg tab Take 1 tablet by mouth three times daily as needed. omeprazole (PRILOSEC) 40 mg capsule Take 1 capsule by mouth once daily. metoprolol tartrate, short acting, (LOPRESSOR) 50 mg tablet Take 1 tablet by mouth twice daily. amiodarone (PACERONE) 200 mg tablet Take 0.5 tablets by mouth once daily. dilTIAZem CD (CARDIZEM CD, CARTIA XT) 240 mg 24 hr capsule Take 240 mg by mouth once daily. furosemide (LASIX) 40 mg tablet Take 1 tablet by mouth twice daily. WALKER ROLLATOR SEAT WITH 6 WHEELS - RED Daily use R26.81 Gait instability (primary encounter diagnosis) potassium chloride 20 mEq TbER Take 1 tablet by mouth twice daily. albuterol HFA (PROVENTIL HFA, VENTOLIN HFA) 90 mcg/actuation inhaler Inhale 2 Puffs as instructed every 4 hours as needed. 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 MULTIVITAMIN ORAL Take 1 tablet by mouth once daily. No current facility-administered medications for this visit. ALLERGIES: ALLERGIES Allergen Reactions Crestor [Rosuvastat* Other: See Comments Myalgia. Ibuprofen Other: See Comments dizzy Prevnar 13 [Pneumoc* Rash Presumed reaction to Prevnar. Latex Rash Local contact rash. PAST MEDICAL HISTORY Diagnosis Date A-fib ([facility]) Class 1 congestive heart failure, unspecified failure chronicity, systolic ([facility]) 11/21/2019 Dysphagia, unspecified(787.20) Esophageal reflux Esophagitis, unspecified Marfan's syndrome Moderate mitral regurgitation 06/18/2021 04/27/21 Echo at [facility]. Pleural effusion, right 05/05/2020 CXR 11/18/19 and 05/04/20. Unspecified essential hypertension PAST SURGICAL HISTORY Procedure Laterality Date COLONOSCOPY FLX DX W/COLLJ SPEC WHEN PFRMD 10/16/14 Colonoscopy EGD TRANSORAL BIOPSY SINGLE/MULTIPLE 01/13/09 ESOPHAGOGASTRODUODENOSCOPY TRANSORAL DIAGNOSTIC 10/16/14 EGD FNA WITH IMAGING 03/16/11 U/S FNA left mid/lower lobe thyroid nodule MAMMOGRAM BILATERAL August 2010? PAST SURGICAL HISTORY OF tubial pregnacy/tube removed PAST SURGICAL HISTORY OF eye surgery bilateral TOTAL ABDOMINAL HYSTERECT W/WO RMVL TUBE OVARY Hysterectomy, [place] FAMILY HISTORY Problem Relation Age of Onset Diabetes Mother Cancer Mother other (marfan syndrome) Mother GI Father ulcer Diabetes Sister other (marfan syndrome) Brother x2 Stroke Maternal Grandmother Hypertension Sister Hypertension Brother COPD Brother Emphysema COPD Daughter Emphysema Social History Tobacco Use Smoking status: Never Smokeless tobacco: Never Tobacco comments: Spouse smoked cigars in home until about 2003. Vaping Use Vaping Use: Never used Substance Use Topics Alcohol use: No Drug use: No Reviewed current medications, allergies, past medical history, surgical history, family history and social history today. REVIEW OF SYSTEMS All other reviewed and negative other than HPI. HEALTH MAINTENANCE: Reviewed health maintenance issues today and recommended the following in detail. COVID-19 VACCINE(1) Never done BP CONTROLLED (<130/80) Never done SHINGRIX VACCINE(1 of 2) Never done VITALS: BP 122/56 Pulse (!) 57 Ht 154.9 cm (5' 1 ) Wt 60.3 kg (133 lb) SpO2 95% BMI 25.13 kg/m Last 4 Encounter Wt Readings: Date: Wt: 09/19/2022 60.3 kg (133 lb) 09/01/2022 59.9 kg (132 lb) 07/28/2022 62.1 kg (137 lb) 07/14/2022 61.7 kg (136 lb) PHYSICAL EXAMINATION: General appearance: Well appearing, alert, in no acute distress, well-hydrated, well nourished. Skin: Skin color, texture, turgor normal, no suspicious rashes or lesions Head: Normocephalic, no masses, lesions, tenderness or abnormalities Lungs: Lungs clear to auscultation. No wheezing, rhonchi, rales Heart: RRR without murmur, gallop, or rubs. No ectopy Abdomen: Normal abdominal exam, Abdomen soft, non-tender. Bowel sounds normal. No masses, organomegaly Extremities: No deformities, edema, skin discoloration, clubbing or cyanosis. Good capillary refill. ASSESSMENT/PLAN: 1. Chronic anticoagulation - ICD9: V58.61, ICD10: Z79.01 (primary diagnosis) - adjusted inr. Given microcytosis check labs. 2. Calculus of gallbladder without cholecystitis without obstruction - ICD9: 574.20, ICD10: K80.20 - call if any pain. 3. Prediabetes - ICD9: 790.29, ICD10: R73.03 - check labs. - HGB A1C 4. Marfan's syndrome - ICD9: 759.82, ICD10: Q87.40 - per cardiology. 5. Rheumatoid arthritis, involving unspecified site, unspecified whether rheumatoid factor present (HCC) - ICD9: 714.0, ICD10: M06.9 - no issues. 6. Thyroid nodule - ICD9: 241.0, ICD10: E04.1 - per surgery. 7. Pulmonary emphysema, unspecified emphysema type (HCC) - ICD9: 492.8, ICD10: J43.9 - per pulmonary is stable 8. History of pleural effusion - ICD9: V12.69, ICD10: Z87.09 - has been better after tx of empyema 9. History of compression fracture of spine - ICD9: V15.51, ICD10: Z87.81 - doing much better. 10. Microcytosis - ICD9: 790.09, ICD10: R71.8 -check labs. If abnormal, gi or surgery - CBC + DIFF - IRON + TIBC - FERRITIN BLD 11. Stage 3 chronic kidney disease, unspecified whether stage 3a or 3b CKD (HCC) - ICD9: 585.3, ICD10: N18.30 - stable. Follow labs., 12. Bloating - ICD9: 787.3, ICD10: R14.0 - add gas x prn. Consider gi/surgery if labs abnormal or changes. Wes Bonilla MD documented in this encounter [facility] 10-27-2022 Note HNO ID: [id number] Author: Cadence Bustillo LPN Service: ? Author Type: ? Type: Progress Notes Filed: 10/27/2022 3:00 PM Note Text: Patient notified and reads back instructions. [facility] 10-27-2022 Note HNO ID: [id number] Author: Wes Bonilla MD Service: ? Author Type: Physician Type: Progress Notes Filed: 10/27/2022 3:00 PM Note Text: Change to 4 mg T, TH, Sat. 2 mg a day rest of the week. Recheck as ordered. [facility] 10-27-2022 Note HNO ID: [id number] Author: Yanely Posadas RN Service: ? Author Type: ? Type: Progress Notes Filed: 10/27/2022 3:00 PM Note Text: patient had inr completed at [facility] patients inr is 1.7 (patients inr range is 2.0-3.0) patient is currently taking 4mg Mon,Thurs and 2mg all other days patients last dose change was on 10/13/22 due to a low level of 1.6 (dose at that time was 4mg Mon and 2mg all other days) patient has had no changes in medication except for coumadin and no missed doses and no change in diet Advised patient that they would be contacted regarding medication dose and when to follow up after information is reviewed by provider. After provider review please contact the patient with information and schedule follow up appointment with coumadin clinic. ok to leave a detailed message if no answer FYI- patient has been scheduled for a 2 week follow up inr on 11/08/22 (patient has appointment with pcp also this day) [facility] 10-26-2022 Note HNO ID: [id number] Author: Michelle Rocha RN Service: ? Author Type: Registered Nurse Type: Progress Notes Filed: 10/26/2022 2:44 PM Note Text: CDM Telephonic Outreach Provider Action/FYI Pt denies new or worsening CDM symptoms. Pt states her back has been hurting her since she had fractures a year ago. Providers are currently assessing and treating. Pt denies needs, questions, concerns at this time. End outreach. Contacted for: Routine Telephonic Outreach Contact made with patient: Yes Patient identified by name and date of . Discussed care with patient Are you experiencing any new or worsening symptoms you need to talk about today? No Disease Specific Do you check your blood pressure at home? No Do you have new or worsening shortness of breath with activity? No Do you have new or worsening cough? No Do you have new or worsening wheezing? No Do you need to use your rescue (Albuterol) inhaler or nebulizer more often than normal? No Based on gang sawyer, the following disposition is advised: No symptoms or symptoms present, not severe. Routed to: No Action Needed FAVIOLA Education Provided this Outreach: No Michelle Rocha RN October 26, 2022 2:44 PM [facility] 10-26-2022 Note Patient Outreach [place] [facility] [place] NIMISHA CEJA ([id number]) 1945 F Date Time Provider Department 10/26/22 MICHELLE ROCHA During your visit today, we recorded the following information about you: Michelle Rocha RN 10/26/2022 2:44 PM Signed CDM Telephonic Outreach Provider Action/FYI Pt denies new or worsening CDM symptoms. Pt states her back has been hurting her since she had fractures a year ago. Providers are currently assessing and treating. Pt denies needs, questions, concerns at this time. End outreach. Contacted for: Routine Telephonic Outreach Contact made with patient: Yes Patient identified by name and date of . Discussed care with patient Are you experiencing any new or worsening symptoms you need to talk about today? No Disease Specific Do you check your blood pressure at home? No Do you have new or worsening shortness of breath with activity? No Do you have new or worsening cough? No Do you have new or worsening wheezing? No Do you need to use your rescue (Albuterol) inhaler or nebulizer more often than normal? No Based on gang sawyer, the following disposition is advised: No symptoms or symptoms present, not severe. Routed to: No Action Needed FAVIOLA Education Provided this Outreach: No Michelle Rocha RN October 26, 2022 2:44 PM Allergies As of Date: 10/26/2022 Noted Allergy Reaction CRESTOR (ROSUVASTATIN CALCIUM) 01/19/2011 14 - Other: See Comments Comments: Myalgia. IBUPROFEN 12/04/2008 14 - Other: See Comments Comments: dizzy PREVNAR 13 (PNEUMOC 13-CHU CONJ-D*07/27/2015 2 - Rash Comments: Presumed reaction to Prevnar. LATEX 12/08/2008 2 - Rash Comments: Local contact rash. Date Reviewed: 10/20/2022 Reviewed by: Elizabet Almeida RT(R) - Partially Assessed Reason for Visit: CDM [Other] Cmt: Telephonic outreach Prescriptions as of 10/26/2022 - warfarin (COUMADIN) 4 mg tablet 4 mg on Monday and , 2 mg all other days - gabapentin (NEURONTIN) 100 mg capsule Take 1 capsule by mouth twice daily for 180 days. - calcitonin,salmon, (MIACALCIN, FORTICAL) 200 unit/actuation nasal spray Use 1 Baldwin in the nose once daily. - Back Brace misc 1 Each once daily. Custom made - Metaxalone 400 mg tab Take 1 tablet by mouth three times daily as needed. - omeprazole (PRILOSEC) 40 mg capsule Take 1 capsule by mouth once daily. - metoprolol tartrate, short acting, (LOPRESSOR) 50 mg tablet Take 1 tablet by mouth twice daily. - amiodarone (PACERONE) 200 mg tablet Take 0.5 tablets by mouth once daily. - dilTIAZem CD (CARDIZEM CD, CARTIA XT) 240 mg 24 hr capsule Take 240 mg by mouth once daily. - furosemide (LASIX) 40 mg tablet Take 1 tablet by mouth twice daily. - WALKER ROLLATOR SEAT WITH 6 WHEELS - RED Daily use R26.81 Gait instability (primary encounter diagnosis) - potassium chloride 20 mEq TbER Take 1 tablet by mouth twice daily. - albuterol HFA (PROVENTIL HFA, VENTOLIN HFA) 90 mcg/actuation inhaler Inhale 2 Puffs as instructed every 4 hours as needed. 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 - MULTIVITAMIN ORAL Take 1 tablet by mouth once daily. Meds Comments as of 02/09/2022: 02/09/22 Severe med interactions noted between amiodarone and dilTIAZem CD; warfarin and amiodarone February 03, 2022 Ana Rosa Santamaria (Pharmacist) - Interviewed pt, assessed Rx fill hx and Epic data Problem List As Of Date 10/26/2022 Noted Resolved Dysphagia, unspecified(787.20) [R13.10] 05/08/2018 MARFAN'S SYNDROME [Q87.40] Esophageal reflux [K21.9] Nontoxic multinodular goiter [E04.2] 12/08/2008 05/08/2018 Gastrointestinal malfunction arising from menta*12/09/2008 10/10/2017 Esophagitis, unspecified [K20.90] 01/13/2009 10/10/2017 Hypertension [I10] 01/19/2011 06/23/2015 Hyperlipidemia [E78.5] 01/19/2011 History of polymyalgia rheumatica [Z87.39] 01/19/2011 Multiple thyroid nodules [E04.2] 03/03/2011 09/23/2020 Atrial fibrillation (HCC) [I48.91] 01/14/2014 10/10/2017 Centrilobular emphysema (HCC) [J43.2] 01/14/2014 Paroxysmal atrial fibrillation (HCC) [I48.0] Hypertension, essential [I10] 06/23/2015 Chronic anticoagulation [Z79.01] 06/23/2015 Fatigue [R53.83] 11/24/2016 10/10/2017 Lung nodule [R91.1] 06/06/2019 Chronic systolic heart failure (HCC) [I50.22] 11/21/2019 09/23/2020 Thoracic aorta atherosclerosis (HCC) [I70.0] 03/23/2020 09/23/2020 Pleural effusion, right [J90] 05/05/2020 Thyroid nodule [E04.1] 05/11/2020 Prediabetes [R73.03] 09/25/2020 Pulmonary hypertension (HCC) [I27.20] 05/11/2021 Moderate mitral regurgitation [I34.0] 06/18/2021 Encounter for support and coordination of trans*07/20/2021 07/26/2022 Pleural effusion [J90] 01/31/2022 04/19/2022 Renal infarct (HCC) [N28. (more content not included)... [facility] 10-20-2022 Note HNO ID: [id number] Author: RT iKa(R) Service: Nuclear Medicine Author Type: Technologist Type: Progress Notes Filed: 10/20/2022 2:33 PM Note Text: RADIOLOGY SERVICE PROGRESS NOTE SERVICE DATE: 10/20/2022 SERVICE TIME: 12:35 PM PATIENT IDENTITY VERIFICATION COMPLETED USING TWO (2) STANDARD IDENTIFIERS: Name and Date of confirmed by patient verbally FALL SCREENING: Has the patient had 2 falls in the last year or 1 fall with injury or currently using an Ambulatory Assistive Device (Walker, Cane, Wheelchair, Crutches, etc.)? Yes, Patient High Risk for Falls What interventions were put in place to prevent falls during this visit? Instructed Patient to Call for Help if Needed, Offered Assistance with Transfers/Clothing, Instructed Patient to Remain Seated (Not on Exam Table) Until Exam, Increased Observations by Caregivers, and Escorted to/from Restroom PATIENT GENDER DATA: .female : No ALLERGIES: Reviewed and unchanged MEDICATIONS REVIEWED: No PATIENT RELEVANT IMPLANT DATA REVIEWED: Not Applicable CREATININE: Creatinine Date Value Ref Range Status 09/19/2022 1.18 (H) 0.58 - 0.96 mg/dL Final 05/05/2022 1.03 (H) 0.58 - 0.96 mg/dL Final 04/19/2022 1.04 (H) 0.58 - 0.96 mg/dL Final Estimated Glomerular Filtration Rate Date Value Ref Range Status 09/19/2022 48 (L) >=60 mL/min/1.73m? Final Comment: Estimated Glomerular Filtration Rate (eGFR) is calculated using the 2020 CKD-EPI creatinine equation. This equation utilizes serum creatinine, sex, and age as parameters. The creatinine assay has traceable calibration to isotope dilution-mass spectrometry. Refer to KDIGO guidelines for clinical interpretation. In patients with unstable renal function, e.g. those with acute kidney injury, the eGFR may not accurately reflect actual GFR. eGFR- Date Value Ref Range Status 05/11/2021 >60 Final P.O.C.T. RESULTS: N/A October 20, [address] PERFORMED: No IV SITE: Ambulatory: A peripheral IV was started in the Left antecubital site with a Angio cath: 24 gauge. POST EXAM PIV STATUS: Discontinued PROCEDURE TYPE: NM INJECT: Whole Body Bone Scan. 20.9 mCi Tc99m MDP. No other medications given.. ADMINISTRATION TIME: 12:40 A Diagnostic radioactive procedure has taken place, with no further precautions necessary other than routine body substance precautions. More information regarding radiation safety can be found using this link: [email or web address] [email or web address] SIGNATURE: RT Kia(R) PATIENT NAME: Nimisha Ceja DATE: October 20, 2022 TIME: 12:45 PM PAGER/CONTACT #: [facility] 10-20-2022 History of Presen t illness Narrative RADIOLOGY SERVICE PROGRESS NOTE SERVICE DATE: 10/20/2022 SERVICE TIME: 12:35 PM PATIENT IDENTITY VERIFICATION COMPLETED USING TWO (2) STANDARD IDENTIFIERS: Name and Date of confirmed by patient verbally FALL SCREENING: Has the patient had 2 falls in the last year or 1 fall with injury or currently using an Ambulatory Assistive Device (Walker, Cane, Wheelchair, Crutches, etc.)? Yes, Patient High Risk for Falls What interventions were put in place to prevent falls during this visit? Instructed Patient to Call for Help if Needed, Offered Assistance with Transfers/Clothing, Instructed Patient to Remain Seated (Not on Exam Table) Until Exam, Increased Observations by Caregivers, and Escorted to/from Restroom PATIENT GENDER DATA: .female : No ALLERGIES: Reviewed and unchanged MEDICATIONS REVIEWED: No PATIENT RELEVANT IMPLANT DATA REVIEWED: Not Applicable CREATININE: Creatinine Date Value Ref Range Status 09/19/2022 1.18 (H) 0.58 - 0.96 mg/dL Final 05/05/2022 1.03 (H) 0.58 - 0.96 mg/dL Final 04/19/2022 1.04 (H) 0.58 - 0.96 mg/dL Final Estimated Glomerular Filtration Rate Date Value Ref Range Status 09/19/2022 48 (L) >=60 mL/min/1.73m Final Comment: Estimated Glomerular Filtration Rate (eGFR) is calculated using the 2020 CKD-EPI creatinine equation. This equation utilizes serum creatinine, sex, and age as parameters. The creatinine assay has traceable calibration to isotope dilution-mass spectrometry. Refer to KDIGO guidelines for clinical interpretation. In patients with unstable renal function, e.g. those with acute kidney injury, the eGFR may not accurately reflect actual GFR. eGFR- Date Value Ref Range Status 05/11/2021 >60 Final P.O.C.T. RESULTS: N/A October 20, [address] PERFORMED: No IV SITE: Ambulatory: A peripheral IV was started in the Left antecubital site with a Angio cath: 24 gauge. POST EXAM PIV STATUS: Discontinued PROCEDURE TYPE: NM INJECT: Whole Body Bone Scan. 20.9 mCi Tc99m MDP. No other medications given.. ADMINISTRATION TIME: 12:40 A Diagnostic radioactive procedure has taken place, with no further precautions necessary other than routine body substance precautions. More information regarding radiation safety can be found using this link: [email or web address] [email or web address] df SIGNATURE: RT Kia(R) PATIENT NAME: Nimisha Ceja DATE: October 20, 2022 TIME: 12:45 PM PAGER/CONTACT #: documented in this encounter [facility] 10-13-2022 Note HNO ID: [id number] Author: Jennifer Kimball Ma Service: ? Author Type: ? Type: Progress Notes Filed: 10/13/2022 3:52 PM Note Text: Pt called and notified of changes below from [facility] Provider. Pt understood. Tracker has been updated and medication updated. Jennifer Kimball Ma [facility] 10-13-2022 Note HNO ID: [id number] Author: Gregorio Delcid MD Service: ? Author Type: Physician Type: Progress Notes Filed: 10/13/2022 3:52 PM Note Text: Go back to 4mg Mon,Thurs; and 2mg all other days Recheck in 2 weeks as planned Gregorio Delcid MD [facility] 10-13-2022 Note HNO ID: [id number] Author: Yanely Posadas RN Service: ? Author Type: ? Type: Progress Notes Filed: 10/13/2022 3:52 PM Note Text: patient had inr completed at [facility] patients inr is 1.6 (patients inr range is 2.0-3.0) patient is currently taking 4mg Mon and 2mg all other days patients last dose change was on 09/20/22 due to a high level of 3.1 (dose at that time was 4mg Mon,thurs and 2mg all other days) patient has had no changes in medication and no missed doses and no change in diet Advised patient that they would be contacted regarding medication dose and when to follow up after information is reviewed by provider. After provider review please contact the patient with information and schedule follow up appointment with coumadin clinic. ok to leave a detailedmessage if no answer FYI- patient has been scheduled for a 2 week follow up inr on 10/27/22 [facility] 10-13-2022 History of Presen t illness Narrative Pt called and notified of changes below from [facility] Provider. Pt understood. Tracker has been updated and medication updated. Jennifer Kimball Ma Go back to 4mg Mon,Thurs; and 2mg all other days Recheck in 2 weeks as planned Gregorio Delcid MD patient had inr completed at [facility] patients inr is 1.6 (patients inr range is 2.0-3.0) patient is currently taking 4mg Mon and 2mg all other days patients last dose change was on 09/20/22 due to a high level of 3.1 (dose at that time was 4mg Mon,thurs and 2mg all other days) patient has had no changes in medication and no missed doses and no change in diet Advised patient that they would be contacted regarding medication dose and when to follow up after information is reviewed by provider. After provider review please contact the patient with information and schedule follow up appointment with coumadin clinic. ok to leave a detailedmessage if no answer FYI- patient has been scheduled for a 2 week follow up inr on 10/27/22 documented in this encounter [facility] 10-05-2022 Miscellaneous Notes PATIENT NOTIFIED OF SAME. Patient to call back to scheduled as she states I'm not ready to complete this at this time. Please let her know it was the bone fraction, not liver, that was elevated in alk phos. Because it is increasing, I would recommend bone scan. Telephone on 10/05/22 NM BONE WHOLE BODY Thanks, Tobi Mehta PA-C documented in this encounter [facility] 09-29-2022 Note HNO ID: [id number] Author: Wes Bonilla MD Service: ? Author Type: Physician Type: Progress Notes Filed: 09/29/2022 3:08 PM Note Text: agree [facility] 09-29-2022 Note HNO ID: [id number] Author: Yanely Posadas RN Service: ? Author Type: ? Type: Progress Notes Filed: 09/29/2022 3:08 PM Note Text: patient had inr completed at [facility] patients inr is 2.4 (patients inr range is 2.0-3.0) patient is currently taking 4mg Mon and 2mg all other days patients last dose change was on 09/20/22 due to a high level of 3.1 (dose at that time was 4mg Mon,Thurs and 2mg all other days) patient has had no changes in medication except for coumadin and no missed doses and no change in diet Advised patient to continue on the same dose(s) and that they would only be contacted regarding dosage and follow up instructions after review with provider, if a change is needed. Written instructions given and patient verbalized understanding. Presently scheduled in 2 weeks (10/13/22) for follow up INR since this is the first normal reading since dose change [facility] 09-29-2022 History of Presen t illness Narrative agree patient had inr completed at [facility] patients inr is 2.4 (patients inr range is 2.0-3.0) patient is currently taking 4mg Mon and 2mg all other days patients last dose change was on 09/20/22 due to a high level of 3.1 (dose at that time was 4mg Mon,Thurs and 2mg all other days) patient has had no changes in medication except for coumadin and no missed doses and no change in diet Advised patient to continue on the same dose(s) and that they would only be contacted regarding dosage and follow up instructions after review with provider, if a change is needed. Written instructions given and patient verbalized understanding. Presently scheduled in 2 weeks (10/13/22) for follow up INR since this is the first normal reading since dose change documented in this encounter [facility] 09-27-2022 Miscellaneous Notes patient has been rescheduled to Monday Patient calling and states she has an appointment at the [facility] today at 1:15pm to have her INR checked. Patient states her son is in the hospital and she would like to reschedule her INR appt to a date later this week. Pt's last INR was completed one week ago on 09/20/22 and was 3.1. Component Ref Range & Units 7 d ago (09/20/22) 1 mo ago (08/23/22) 2 mo ago (07/21/22) 2 mo ago (07/07/22) 3 mo ago (06/09/22) 4 mo ago (05/26/22) 4 mo ago (05/19/22) INR (POCT) 0.8 - 1.2 3.1 High 2.9 High 2.4 High 1.8 High 2.2 High 2.8 High 3.2 High Please advise if ok for pt to reschedule INR to later this week. Thank you. documented in this encounter [facility] 09-23-2022 Note HNO ID: [id number] Author: Michelle Rocha RN Service: ? Author Type: Registered Nurse Type: Progress Notes Filed: 09/23/2022 11:12 AM Note Text: CDM Telephonic Outreach Provider Action/FYI Made call #2. NA/ Left Vm Contacted for: Routine Telephonic Outreach Contact made with patient: No, left message. Michelle Rocha RN September 23, 2022 11:11 AM [facility] 09-23-2022 History of Presen t illness Narrative CDM Telephonic Outreach Provider Action/FYI Made call #2. NA/ Left Vm Contacted for: Routine Telephonic Outreach Contact made with patient: No, left message. Michelle Rocha RN September 23, 2022 11:11 AM CDM Telephonic Outreach Provider Action/FYI Made call #1 to pt. NA/Left Vm. Contacted for: Routine Telephonic Outreach Contact made with patient: No, left message. Michelle Rocha RN September 22, 2022 4:05 PM documented in this encounter [facility] 09-22-2022 Note HNO ID: [id number] Author: Michelle Rocha RN Service: ? Author Type: Registered Nurse Type: Progress Notes Filed: 09/23/2022 11:12 AM Note Text: CDM Telephonic Outreach Provider Action/FYI Made call #1 to pt. NA/Left Vm. Contacted for: Routine Telephonic Outreach Contact made with patient: No, left message. Michelle Rocha RN September 22, 2022 4:05 PM [facility] 09-22-2022 Note Patient Outreach (AM [facility]) NIMISHA CEJA ([id number]) 1945 F Date Time Provider Department 09/22/22 MICHELLE ROCHA During your visit today, we recorded the following information about you: Michelle Rocha RN 09/23/2022 11:12 AM Signed CDM Telephonic Outreach Provider Action/FYI Made call #1 to pt. NA/Left Vm. Contacted for: Routine Telephonic Outreach Contact made with patient: No, left message. Michelle Rocha RN September 22, 2022 4:05 PM Michelle Rocha RN 09/23/2022 11:12 AM Signed [facility] Telephonic Outreach Provider Too/CAROLYN Made call #2. NA/ Left Vm Contacted for: Routine Telephonic Outreach Contact made with patient: No, left message. Michelle Rocha RN September 23, 2022 11:11 AM Allergies As of Date: 09/22/2022 Noted Allergy Reaction CRESTOR (ROSUVASTATIN CALCIUM) 01/19/2011 14 - Other: See Comments Comments: Myalgia. IBUPROFEN 12/04/2008 14 - Other: See Comments Comments: dizzy PREVNAR 13 (PNEUMOC 13-HCU CONJ-D*07/27/2015 2 - Rash Comments: Presumed reaction to Prevnar. LATEX 12/08/2008 2 - Rash Comments: Local contact rash. Date Reviewed: 09/19/2022 Reviewed by: Seema Garcia - Fully Assessed Reason for Visit: CDM [Other] Cmt: Telephonic outreach Prescriptions as of 09/23/2022 - gabapentin (NEURONTIN) 100 mg capsule Take 1 capsule by mouth twice daily for 180 days. - calcitonin,salmon, (MIACALCIN, FORTICAL) 200 unit/actuation nasal spray Use 1 Baldwin in the nose once daily. - Back Brace misc 1 Each once daily. Custom made - Metaxalone 400 mg tab Take 1 tablet by mouth three times daily as needed. - omeprazole (PRILOSEC) 40 mg capsule Take 1 capsule by mouth once daily. - metoprolol tartrate, short acting, (LOPRESSOR) 50 mg tablet Take 1 tablet by mouth twice daily. - warfarin (COUMADIN) 4 mg tablet 4 mg on M, W, F, 2 mg all other days. - amiodarone (PACERONE) 200 mg tablet Take 0.5 tablets by mouth once daily. - dilTIAZem CD (CARDIZEM CD, CARTIA XT) 240 mg 24 hr capsule Take 240 mg by mouth once daily. - furosemide (LASIX) 40 mg tablet Take 1 tablet by mouth twice daily. - WALKER ROLLATOR SEAT WITH 6 WHEELS - RED Daily use R26.81 Gait instability (primary encounter diagnosis) - potassium chloride 20 mEq TbER Take 1 tablet by mouth twice daily. - albuterol HFA (PROVENTIL HFA, VENTOLIN HFA) 90 mcg/actuation inhaler Inhale 2 Puffs as instructed every 4 hours as needed. 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 - MULTIVITAMIN ORAL Take 1 tablet by mouth once daily. Meds Comments as of 02/09/2022: 02/09/22 Severe med interactions noted between amiodarone and dilTIAZem CD; warfarin and amiodarone February 03, 2022 Ana Rosa Santamaria (Pharmacist) - Interviewed pt, assessed Rx fill hx and Epic data Problem List As Of Date 09/22/2022 Noted Resolved Dysphagia, unspecified(787.20) [R13.10] 05/08/2018 MARFAN'S SYNDROME [Q87.40] Esophageal reflux [K21.9] Nontoxic multinodular goiter [E04.2] 12/08/2008 05/08/2018 Gastrointestinal malfunction arising from menta*12/09/2008 10/10/2017 Esophagitis, unspecified [K20.90] 01/13/2009 10/10/2017 Hypertension [I10] 01/19/2011 06/23/2015 Hyperlipidemia [E78.5] 01/19/2011 History of polymyalgia rheumatica [Z87.39] 01/19/2011 Multiple thyroid nodules [E04.2] 03/03/2011 09/23/2020 Atrial fibrillation (HCC) [I48.91] 01/14/2014 10/10/2017 Centrilobular emphysema (HCC) [J43.2] 01/14/2014 Paroxysmal atrial fibrillation (HCC) [I48.0] Hypertension, essential [I10] 06/23/2015 Chronic anticoagulation [Z79.01] 06/23/2015 Fatigue [R53.83] 11/24/2016 10/10/2017 Lung nodule [R91.1] 06/06/2019 Chronic systolic heart failure (HCC) [I50.22] 11/21/2019 09/23/2020 Thoracic aorta atherosclerosis (HCC) [I70.0] 03/23/2020 09/23/2020 Pleural effusion, right [J90] 05/05/2020 Thyroid nodule [E04.1] 05/11/2020 Prediabetes [R73.03] 09/25/2020 Pulmonary hypertension (HCC) [I27.20] 05/11/2021 Moderate mitral regurgitation [I34.0] 06/18/2021 Encounter for support and coordination of trans*07/20/2021 07/26/2022 Pleural effusion [J90] 01/31/2022 04/19/2022 Renal infarct (HCC) [N28.0] 04/19/2022 07/26/2022 Abnormal levels of other serum enzymes [R74.8] 11/11/2021 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) [I50*09/03/2021 Acute respiratory failure (HCC) [J96.00] 07/22/2021 Chronic obstructive pulmonary disease (HCC) [J4*04/28/2021 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 [facility] 09-22-2022 Miscellaneous Notes Patient notified & this MA repeated d/t renal status only to be taking BID. Patient verbalized understanding of instructions. Luz Dupree MA The following approved medication requests have been transmitted electronically. Requested Prescriptions Signed Prescriptions Disp Refills gabapentin (NEURONTIN) 100 mg capsule 180 capsule 1 Sig: Take 1 capsule by mouth twice daily for 180 days. Authorizing Provider: Myah MEHTA MA She can only do twice a day r/t renal status. The following approved medication requests have been transmitted electronically. Requested Prescriptions Signed Prescriptions Disp Refills gabapentin (NEURONTIN) 100 mg capsule 180 capsule 1 Sig: Take 1 capsule by mouth twice daily for 180 days. Authorizing Provider: Myah MEHTA PA-C Patient states that Tobi told her she could increase to 2-3 tablets per day. Has taken 2 some days and now needs refill. Please send to pharmacy for her with new instructions. documented in this encounter [facility] 09-22-2022 Miscellaneous Notes Patient notified. ----- Message from Myah Mehta PA-C sent at 2022 9:32 PM EDT ----- Please let her know the XR shows normal gas pattern, no obstruction. Thanks, Tobi Mehta PA-C documented in this encounter [facility] 09-22-2022 Miscellaneous Notes Patient notified and verbalizes understanding. Please let her know lab results look okay except she is mildly dehydrated probably from lasix. Needs to push fluids a little. Alk phos is elevated but other liver enzymes are normal Please have lab run iso's. Telephone on 09/21/22 ALK PHOS ISOENZYM BL ThanksTobi PA-C documented in this encounter [facility] 09-20-2022 Note HNO ID: [id number] Author: Yanely Posadas RN Service: ? Author Type: ? Type: Progress Notes Filed: 09/20/2022 4:04 PM Note Text: PATIENT NOTIFIED OF INFORMATION [facility] 09-20-2022 Note HNO ID: [id number] Author: Wes Bonilla MD Service: ? Author Type: Physician Type: Progress Notes Filed: 09/20/2022 4:04 PM Note Text: Change to 2 mg a day except 4 mg on Mondays. Recheck one week [facility] 09-20-2022 Note HNO ID: [id number] Author: Yanely Posadas RN Service: ? Author Type: ? Type: Progress Notes Filed: 09/20/2022 4:04 PM Note Text: patient had inr completed at [facility] patients inr is 3.1 (patients inr range is 2.0-3.0) patient is currently taking 4mg Mon,Thurs and 2mg all other days patients last dose change was on 05/19/22 due to a high level of 3.2 (dose at that time was 4mg Mon,,Mon and 2mg all other days) patient has had no changes in medication and no missed doses and no change in diet Advised patient that they would be contacted regarding medication dose and when to follow up after information is reviewed by provider. After provider review please contact the patient with information and schedule follow up appointment with coumadin clinic. ok to leave a detailed message if no answer FYI - patient has been scheduled for a 1 week follow up inr on 09/27/22 [facility] 09-19-2022 Note HNO ID: [id number] Author: Marjan Garces RT(R) Service: Radiology Author Type: Technologist Type: Progress Notes Filed: 09/19/2022 3:22 PM Note Text: Radiology Service Progress Note PATIENT NAME: Nimisha Ceja DATE OF SERVICE: September 19, 2022 TIME: 3:04 PM PATIENT IDENTITY VERIFICATION COMPLETED USING TWO (2) IDENTIFIERS: Name and Date of confirmed by patient verbally. FALL SCREENING: Has the patient had 2 falls in the last year or 1 fall with injury or currently using an Ambulatory Assistive Device (Walker, Cane, Wheelchair, Crutches, etc.)? Yes, Patient High Risk for Falls What interventions were put in place to prevent falls during this visit? Instructed Patient to Call for Help if Needed, Offered Assistance with Transfers/Clothing, and Increased Observations by Caregivers PATIENT GENDER DATA: Female. status: : No status: NO. PATIENT RELEVANT IMPLANT DATA REVIEWED: Yes RADIOLOGY DEPARTMENT: General X-ray: Exam(s) Completed: Abdomen X-Ray: Abdomen PERIPHERAL IV DATA: Not applicable SIGNED BY: RT Araceli(R) September 19, 2022 3:04 PM [facility] 09-19-2022 Note HNO ID: [id number] Author: Myah Mehta PA-C Service: ? Author Type: Physician Battery Stacker Type: Progress Notes Filed: 09/19/2022 2:55 PM Note Text: 76 year old female with c/o f/u back pain 08/29/2022 started on gabapentin 100mg daily HS has helped some. Taking Tylenol 500mg 2 tabs once a day 08/18/2022 MRI thoracic spine: Imaging findings suggesting acute or subacute compression deformities involving the T8, T9, and T11 vertebral bodies with up to 10%, 50%, and 10% loss of vertebral body height respectively and no significant osseous retropulsion. Mild chronic compression deformity of the T12 vertebral body without significant osseous retropulsion. Minor degenerative changes without high-grade canal or foraminal narrowing. Round T2 hyperintense hepatic lesions incidentally noted, incompletely characterized, though perhaps cysts or hemangiomas. Small T2 hyperintense renal foci also noted, incompletely characterized, though likely cysts. Trace pleural effusions. Otherwise, unremarkable MRI thoracic spine without contrast. 07/20/2022 XR: indeterminate age T9 compression fracture. Was started on miacalcin NS and scheduled for MRI Abdomen is swelling over last couple, gradually bigger. Appetite pretty good No N/V. Some reflux/ heartburn despite omeprazole. BMs daily, brown, formed. No change in urination. Hx tubal 30 years ago Hx of remaining ovary, tube and uterus removed. No hx kidney stones. Component Latest Ref Rng AND Units 07/21/2022 08/23/2022 INR (POCT) 0.8 - 1.2 2.4 (H) 2.9 (H) Internal Quality Check Acceptable Acceptable Component Latest Ref Rng AND Units 04/19/2022 05/05/2022 WBC 3.70 - 11.00 k/uL 7.11 8.94 RBC 3.90 - 5.20 m/uL 4.87 4.76 Hemoglobin 11.5 - 15.5 g/dL 12.4 11.9 Hematocrit 36.0 - 46.0 % 41.0 38.7 MCV 80.0 - 100.0 fL 84.2 81.3 MCH 26.0 - 34.0 pg 25.5 (L) 25.0 (L) MCHC 30.5 - 36.0 g/dL 30.2 (L) 30.7 RDW-CV 11.5 - 15.0 % 14.9 15.1 (H) Platelet Count 150 - 400 k/uL 380 397 MPV 9.0 - 12.7 fL 9.4 9.2 Neut% % 56.3 61.5 Abs Neut (ANC) 1.45 - 7.50 k/uL 4.00 5.49 Lymph% % 24.2 21.0 Abs Lymph 1.00 - 4.00 k/uL 1.72 1.88 Mchenry% % 15.3 14.3 Abs Mchenry <0.87 k/uL 1.09 (H) 1.28 (H) Eosin% % 2.5 2.1 Abs Eosin <0.46 k/uL 0.18 0.19 Baso% % 1.4 0.7 Abs Baso <0.11 k/uL 0.10 0.06 Immature Gran % % 0.3 0.4 IMMATURE GRANS (ABS) <0.10 k/uL <0.03 0.04 NRBC /100 WBC 0.0 0.0 Absolute nRBC <0.01 k/uL <0.01 <0.01 DTYPE Auto Auto Protein, Total 6.3 - 8.0 g/dL 7.9 7.9 Albumin 3.9 - 4.9 g/dL 4.1 4.1 Calcium 8.5 - 10.2 mg/dL 9.4 9.0 Bilirubin, Total 0.2 - 1.3 mg/dL 0.3 0.3 Alkaline Phosphatase 34 - 123 U/L 104 106 AST 13 - 35 U/L 26 38 (H) ALT 7 - 38 U/L 24 32 Glucose 74 - 99 mg/dL 119 (H) 88 BUN 7 - 21 mg/dL 23 (H) 22 (H) Creatinine 0.58 - 0.96 mg/dL 1.04 (H) 1.03 (H) Sodium 136 - 144 mmol/L 137 136 Potassium 3.7 - 5.1 mmol/L 4.4 4.2 Chloride 97 - 105 mmol/L 98 97 CO2 22 - 30 mmol/L 29 26 Anion Gap 9 - 18 mmol/L 10 13 eGFR >=60 mL/min/1.73mA? 56 (L) 56 (L) Total Cholesterol, Nonfasting <200 mg/dL 218 (H) Triglycerides, Nonfasting <150 mg/dL 102 HDL Cholesterol, Nonfasting >39 mg/dL 61 LDL Cholesterol, Nonfasting <100 mg/dL 137 (H) Non HDL Cholesterol, Nonfasting <130 mg/dL 157 (H) VLDL Cholesterol, Nonfasting <30 mg/dL 20 Total Chol/HDL Ratio, Nonfasting <5.10 mg/dL 3.57 LDL/HDL Ratio, Nonfasting <2.54 mg/dL 2.25 Hemoglobin A1C 4.3 - 5.6 % 6.1 (H) 6.2 (H) Estimated Average Glucose mg/dL 128 131 Magnesium 1.7 - 2.3 mg/dL 2.3 HISTORIES FAMILY HISTORY Problem Relation Age of Onset Diabetes Mother Cancer Mother other (marfan syndrome) Mother GI Father ulcer Diabetes Sister other (marfan syndrome) Brother x2 Stroke Maternal Grandmother Hypertension Sister Hypertension Brother COPD Brother Emphysema COPD Daughter Emphysema PAST MEDICAL HISTORY Diagnosis Date A-fib (HCC) Class 1 congestive heart failure, unspecified failure chronicity, systolic ([facility]) 11/21/2019 Dysphagia, unspecified(787.20) Esophageal reflux Esophagitis, unspecified Marfan's syndrome Moderate mitral regurgitation 06/18/2021 04/27/21 Echo at [facility]. Pleural effusion, right 05/05/2020 CXR 11/18/19 and 05/04/20. Unspecified essential hypertension PAST SURGICAL HISTORY Procedure Laterality Date COLONOSCOPY FLX DX W/COLLJ SPEC WHEN PFRMD 10/16/14 Colonoscopy EGD TRANSORAL BIOPSY SINGLE/MULTIPLE 01/13/09 ESOPHAGOGASTRODUODENOSCOPY TRANSORAL DIAGNOSTIC 10/16/14 EGD FNA WITH IMAGING 03/16/11 U/S FNA left mid/lower lobe thyroid nodule MAMMOGRAM BILATERAL August 2010? PAST SURGICAL HISTORY OF tubial pregnacy/tube removed PAST SURGICAL HISTORY OF eye surgery bilateral TOTAL ABDOMINAL HYSTERECT W/WO RMVL TUBE OVARY Hysterectomy, MICHOACANO Social History Tobacco Use Smoking status: Never Smokeless tobacco: Never Tobacco comments: Spouse smoked cigars in home until about (more content not included)... [facility] 09-19-2022 History of Presen t illness Narrative 76 year old female with c/o f/u back pain 08/29/2022 started on gabapentin 100mg daily HS has helped some. Taking Tylenol 500mg 2 tabs once a day 08/18/2022 MRI thoracic spine: Imaging findings suggesting acute or subacute compression deformities involving the T8, T9, and T11 vertebral bodies with up to 10%, 50%, and 10% loss of vertebral body height respectively and no significant osseous retropulsion. Mild chronic compression deformity of the T12 vertebral body without significant osseous retropulsion. Minor degenerative changes without high-grade canal or foraminal narrowing. Round T2 hyperintense hepatic lesions incidentally noted, incompletely characterized, though perhaps cysts or hemangiomas. Small T2 hyperintense renal foci also noted, incompletely characterized, though likely cysts. Trace pleural effusions. Otherwise, unremarkable MRI thoracic spine without contrast. 07/20/2022 XR: indeterminate age T9 compression fracture. Was started on miacalcin NS and scheduled for MRI Abdomen is swelling over last couple, gradually bigger. Appetite pretty good No N/V. Some reflux/ heartburn despite omeprazole. BMs daily, brown, formed. No change in urination. Hx tubal 30 years ago Hx of remaining ovary, tube and uterus removed. No hx kidney stones. Component Latest Ref Rng & Units 07/21/2022 08/23/2022 INR (POCT) 0.8 - 1.2 2.4 (H) 2.9 (H) Internal Quality Check Acceptable Acceptable Component Latest Ref Rng & Units 04/19/2022 05/05/2022 WBC 3.70 - 11.00 k/uL 7.11 8.94 RBC 3.90 - 5.20 m/uL 4.87 4.76 Hemoglobin 11.5 - 15.5 g/dL 12.4 11.9 Hematocrit 36.0 - 46.0 % 41.0 38.7 MCV 80.0 - 100.0 fL 84.2 81.3 MCH 26.0 - 34.0 pg 25.5 (L) 25.0 (L) MCHC 30.5 - 36.0 g/dL 30.2 (L) 30.7 RDW-CV 11.5 - 15.0 % 14.9 15.1 (H) Platelet Count 150 - 400 k/uL 380 397 MPV 9.0 - 12.7 fL 9.4 9.2 Neut% % 56.3 61.5 Abs Neut (ANC) 1.45 - 7.50 k/uL 4.00 5.49 Lymph% % 24.2 21.0 Abs Lymph 1.00 - 4.00 k/uL 1.72 1.88 Mchenry% % 15.3 14.3 Abs Mchenry <0.87 k/uL 1.09 (H) 1.28 (H) Eosin% % 2.5 2.1 Abs Eosin <0.46 k/uL 0.18 0.19 Baso% % 1.4 0.7 Abs Baso <0.11 k/uL 0.10 0.06 Immature Gran % % 0.3 0.4 IMMATURE GRANS (ABS) <0.10 k/uL <0.03 0.04 NRBC /100 WBC 0.0 0.0 Absolute nRBC <0.01 k/uL <0.01 <0.01 DTYPE Auto Auto Protein, Total 6.3 - 8.0 g/dL 7.9 7.9 Albumin 3.9 - 4.9 g/dL 4.1 4.1 Calcium 8.5 - 10.2 mg/dL 9.4 9.0 Bilirubin, Total 0.2 - 1.3 mg/dL 0.3 0.3 Alkaline Phosphatase 34 - 123 U/L 104 106 AST 13 - 35 U/L 26 38 (H) ALT 7 - 38 U/L 24 32 Glucose 74 - 99 mg/dL 119 (H) 88 BUN 7 - 21 mg/dL 23 (H) 22 (H) Creatinine 0.58 - 0.96 mg/dL 1.04 (H) 1.03 (H) Sodium 136 - 144 mmol/L 137 136 Potassium 3.7 - 5.1 mmol/L 4.4 4.2 Chloride 97 - 105 mmol/L 98 97 CO2 22 - 30 mmol/L 29 26 Anion Gap 9 - 18 mmol/L 10 13 eGFR >=60 mL/min/1.73m 56 (L) 56 (L) Total Cholesterol, Nonfasting <200 mg/dL 218 (H) Triglycerides, Nonfasting <150 mg/dL 102 HDL Cholesterol, Nonfasting >39 mg/dL 61 LDL Cholesterol, Nonfasting <100 mg/dL 137 (H) Non HDL Cholesterol, Nonfasting <130 mg/dL 157 (H) VLDL Cholesterol, Nonfasting <30 mg/dL 20 Total Chol/HDL Ratio, Nonfasting <5.10 mg/dL 3.57 LDL/HDL Ratio, Nonfasting <2.54 mg/dL 2.25 Hemoglobin A1C 4.3 - 5.6 % 6.1 (H) 6.2 (H) Estimated Average Glucose mg/dL 128 131 Magnesium 1.7 - 2.3 mg/dL 2.3 HISTORIES FAMILY HISTORY Problem Relation Age of Onset Diabetes Mother Cancer Mother other (marfan syndrome) Mother GI Father ulcer Diabetes Sister other (marfan syndrome) Brother x2 Stroke Maternal Grandmother Hypertension Sister Hypertension Brother COPD Brother Emphysema COPD Daughter Emphysema PAST MEDICAL HISTORY Diagnosis Date A-fib ([facility]) Class 1 congestive heart failure, unspecified failure chronicity, systolic ([facility]) 11/21/2019 Dysphagia, unspecified(787.20) Esophageal reflux Esophagitis, unspecified Marfan's syndrome Moderate mitral regurgitation 06/18/2021 04/27/21 Echo at [facility]. Pleural effusion, right 05/05/2020 CXR 11/18/19 and 05/04/20. Unspecified essential hypertension PAST SURGICAL HISTORY Procedure Laterality Date COLONOSCOPY FLX DX W/COLLJ SPEC WHEN PFRMD 10/16/14 Colonoscopy EGD TRANSORAL BIOPSY SINGLE/MULTIPLE 01/13/09 ESOPHAGOGASTRODUODENOSCOPY TRANSORAL DIAGNOSTIC 10/16/14 EGD FNA WITH IMAGING 03/16/11 U/S FNA left mid/lower lobe thyroid nodule MAMMOGRAM BILATERAL August 2010? PAST SURGICAL HISTORY OF tubial pregnacy/tube removed PAST SURGICAL HISTORY OF eye surgery bilateral TOTAL ABDOMINAL HYSTERECT W/WO RMVL TUBE OVARY Hysterectomy, [place] Social History Tobacco Use Smoking status: Never Smokeless tobacco: Never Tobacco comments: Spouse smoked cigars in home until about 2003. Vaping Use Vaping Use: Never used Substance Use Topics Alcohol use: No Drug use: No ACTIVE PROBLEM LIST Marfan's Syndrome Esophageal Reflux Hyperlipidemia History of Polymyalgia Rheumatica Centrilobular Emphysema (Hcc) Paroxysmal Atrial Fibrillation (Hcc) Hypertension, Essential Chronic Anticoagulation Lung Nodule Pleural Effusion, Right Thyroid Nodule Prediabetes Pulmonary Hypertension (Hcc) Moderate Mitral Regurgitation Current Outpatient Medications Medication Sig Dispense Refill gabapentin (NEURONTIN) 100 mg capsule Take 1 capsule by mouth daily at bedtime for 90 days. 30 capsule 2 calcitonin,salmon, (MIACALCIN, FORTICAL) 200 unit/actuation nasal spray Use 1 Baldwin in the nose once daily. 6 mL 1 Back Brace misc 1 Each once daily. Custom made 1 Each 0 Metaxalone 400 mg tab Take 1 tablet by mouth three times daily as needed. 20 tablet 0 omeprazole (PRILOSEC) 40 mg capsule Take 1 capsule by mouth once daily. 90 capsule 3 metoprolol tartrate, short acting, (LOPRESSOR) 50 mg tablet Take 1 tablet by mouth twice daily. 90 tablet 3 warfarin (COUMADIN) 4 mg tablet 4 mg on M, W, F, 2 mg all other days. (Patient taking differently: 4 mg on M, W, 2 mg all other days-pt started this dosing on 02/18/22.) 90 tablet 3 amiodarone (PACERONE) 200 mg tablet Take 0.5 tablets by mouth once daily. dilTIAZem CD (CARDIZEM CD, CARTIA XT) 240 mg 24 hr capsule Take 240 mg by mouth once daily. furosemide (LASIX) 40 mg tablet Take 1 tablet by mouth twice daily. 180 tablet 3 WALKER ROLLATOR SEAT WITH 6 WHEELS - RED Daily use R26.81 Gait instability (primary encounter diagnosis) 1 Each 0 potassium chloride 20 mEq TbER Take 1 tablet by mouth twice daily. albuterol HFA (PROVENTIL HFA, VENTOLIN HFA) 90 mcg/actuation inhaler Inhale 2 Puffs as instructed every 4 hours as needed. (Patient taking differently: Inhale 2 Puffs as instructed every 4 hours as needed for wheezing/shortness of breath.) 1 g 1 COMPOUNDED PRESCRIPTION Compression stockings 20-30mmHg 2 pair I83.813 Varicose veins of both lower extremities with pain 2 Each 3 CALCIUM CARBONATE (CALCIUM 600 ORAL) Take 1 tablet by mouth once daily. MULTIVITAMIN ORAL Take 1 tablet by mouth once daily. No current facility-administered medications for this visit. COVID-19 VACCINE(1) Never done SHINGRIX VACCINE(1 of 2) Never done EXAM: BP 110/84 Pulse (!) 54 Ht 154.9 cm (5' 1 ) Wt 60.3 kg (133 lb) SpO2 96% BMI 25.13 kg/m Pleasant older woman in no acute distress though moderate pain with movement. Alert and oriented all spheres. Normal affect and cognition. Speech normal. No deficits to learning or comprehension. Skin warm, dry, pink to lips and nailbeds. Normal turgor. Respirations regular and unlabored. HEENT: NCAT. No scleral icterus or conjunctival injection. TM's clear. Nose and oropharynx free from injection or lesion. Oral membranes moist and pink. No cervical lymph nodes. Thyroid non-tender, no masses, or enlargement. Carotids pulses 2+/4+ without bruits. No JVD with HOB at 30 degrees. Chest is normal shape. Lungs are clear to all flores with good air exchange through out. Mild dulness LLQ posterior. HRRR without murmur or gallop. No lifts, heaves, or rubs. Abdomen with distended with active bowel sounds througout, hyperresonant across upper abdomen to percussion. No masses or organomegaly. Mild tenderness in epigastric area. Extrem: no clubbing or cyanosis. Edema: none. Extremities are warm and pink with prompt capillary refill. Back mildly tender paravertebral mid thoracic. Pain with movement. ASSESSMENT/PLAN: 1. Epigastric pain - ICD9: 789.06, ICD10: R10.13 (primary diagnosis) - check the following. If no abnormal gas pattern on xray, recommend US RUQ or CT abd - XR ABDOMEN 1V SUPINE - CBC + DIFF - COMP METABOLIC PANEL - URINALYSIS, DIPSTICK ONLY - LIPASE BLD - C-REACTIVE PROTEIN (CRP) 2. Abdominal swelling, generalized - ICD9: 789.37, ICD10: R19.07 - XR ABDOMEN 1V SUPINE - CBC + DIFF - COMP METABOLIC PANEL - URINALYSIS, DIPSTICK ONLY - LIPASE BLD - C-REACTIVE PROTEIN (CRP) 3. Compression deformity of vertebra - ICD9: 738.5, ICD10: M43.9 May continue maximum Tylenol dosing (AST 38 not concerning without other liver abn) Consider pain management, PT - GABAPENTIN 100 MG CAPSULE Myah Mehta PA-C documented in this encounter [facility] documented as of this encounter (statuses as of 11/09/2022) [facility]04-17-2023 History of Past illness Narrative* Problem Noted Date Resolved Date Deviation of international n ormalized ratio (INR) from target range 09/19/2022 11/08/2022 History of surgical procedure 09/19/2022 Renal infarct 04/19/2022 07/26/2022 Overview: Has seen Dr. Chaney. Needs to just follow up prn. 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 Shortness of breath 09/16/2021 11/08/2022 Acute respiratory failure 07/22/20212022 Chronic passive congestion of liver 07/22/2021 11/08/2022 Cyst of kidney, acquired 07/22/2021 023 Ischemia and infarction of kidney 07/22/2021 11/08/2022 Overview: Has seen Dr Calvin Leukocytosis 07/22/2021 11/08/2022 Encounter for support and coordination of transi tion of care 07/20/2021 07/26/2022 Overview: Facility: [facility] Date of admission 07/14/2021 Date of discharge Prehospital work-up: Presented to 07/14/2021 to [facility] ED complaining of left-sided abdominal pain with multiple symptoms including cough, myalgias, nasal congestion, low dietary intake due to concerns that would aggravate stomach ache. Patient was exposed to Covid 2 weeks prior, unvaccinated. Vital signs: 98.3 [id number]/102-93% RA. Exam description: Tired, alert and nontoxic, normal respiratory effort, mild tenderness left upper quadrant without rebound or guarding. WBC 20.3-Hgb 14-HCT 43-PLT 388-Ig percent 0.5-absolute neutrophil 17 point 3H Lactic acid 1.2. Sodium 131-K3.8-CL 95-CO2 29.0, glucose 133, otherwise CMP is within normal limits. Calcium 9.1. Liver panel: Total bili 1.10H-AST 180-ALT 95-ALP 126-total protein 8.3-Albumin three-point 3-5 and 50.0-lipase 74. 07/14/2021 CT abdomen pelvis: Dilated main and bilateral pulmonary arteries suggesting pulmonary hypertension, moderate volume right pleural effusion with compressive atelectasis at right lower lobe, moderate cardiomegaly with dilated right ventricle and reflux of contrast in IVC suggesting right heart dysfunction. Heterogenous enhancement and decreased density of the left kidney new since CTA on 01/03/2014- may represent renal ischemia/infarction versus pyelonephritis, neoplasm not ruled out. 2.9 superior and lateral left renal cyst with delayed peripheral nodular enhancement suspicious for cystic renal neoplasm, MRI/CT with IV contrast recommended. Splenic infarction, given left renal and splenic infarctions embolic etiology should be considered. Patient was given IV fluids due to tachycardia, patient's anticoagulants were held for thoracentesis, so there were concerns about possible pulmonary emboli, CT was therefore ordered with negative findings. Case was discussed with hospitalist and decision to admit Patient was admitted under Dr. Maddie Nascimento: Acute problem list and plan: 1. Acute hypoxic respiratory failure secondary right-sided pleural effusion with decompensated RV dysfunction, elevated leukocytosis with recent hospitalization could have concurrent pneumonia: We will check strep pneumo, Legionella antigens, flu, RSV, thoracentesis ordered with fluid studies, O2 as needed, continue aerosol, leukocytosis coverage ordered with IV antibiotics. 2. Splenic/renal infarct: Suspected to be related to subtherapeutic INR and atrial fibrillation, heparin drip was started, patient had prior complications with Xarelto, has been on Coumadin but consider trial of Eliquis as an alternative. Echocardiogram ordered. 3. Leukocytosis: Cultures were ordered, empiric antibiotics, lactic acid normal. 4. Recurrent right-sided pleural effusion: May be related to pulmonary artery hypertension, CT shows marked dilatation of central vasculature without PE, echocardiogram ordered. Started on Lasix drip. 5. Decompensated right-sided heart failure: Lasix drip started, follow BMP, sodium restriction, consider right-sided heart cath, pulmonary medicine consult. 6. Cystic renal mass: Concerning for malignancy, abdominal MRI ordered, consult urology 7. PAF: Current atrial fibrillation, heparin drip started, again echocardiogram ordered to check for embolic sources, diltiazem and metoprolol continued. 8. GERD: Continue omeprazole 9. DVT prophylaxis: Heparin drip CODE STATUS: DNR CCA without intubation 07/14/[address] Malika Jain neurologist: increasing left upper quadrant and flank pain, atypical left renal cyst. Assessment and plan: Right renal cyst, renal infarction: No plans for intervention of 3 cm suspicious lesion during this admission, felt he could be done outpatient. 07/15/2021 consultation open soaper tender Dr. Dwayne Garcia: Assessment right pleural effusion: Continue diuretic therapy, empiric antimicrobials, thoracentesis recommended, eventual right heart cath work and secondary work-up for pH outpatient basis. 07/15/2021 echocardiogram: LV size and LV SF WNL, EF 60 to 65%. RV normal size and RV SF EF. Left atrium moderately enlarged, right atrium mildly enlarged. MV: Moderate mitral annular calcification, 1-2+ MA. TV: Normal. AV: Diffuse aortic valve calcification. PV: Not well visualized. Great vessels and aortic root normal. No pericardial effusion. No significant changes from prior echo. 07/15/2021 MR abdomen with and without IV contrast: Large right pleural effusion, moderate cardiomegaly, distended inferior vena cava and hepatic veins indicative of right-sided heart failure. Scarring of spleen related to old ischemia trauma, multiple nonenhancing lesions in the left kidney identified with contrast which may be related to inflammatory or infectious process 07/16/2021: Ultrasound-guided thoracentesis Dr. Gary Reyes: 670 mL of blood-tinged cloudy fluid drained and sent for analysis Chest x-ray following: Status post right thoracentesis no evidence of hemothorax, residual blunting of right costophrenic angle. Pertinent lab summary: 07/14/2021 blood cultures x2 sites showed no growth over 5 days. Urine clean catch for Legionella and Streptococcus pneumonia both negative. Nasal swab for rapid RSV and influenza as well as SARS Covid-2 all negative. 07/22/2021 WBC 10.2-Hgb 12.1-HCT 37-PLT 338. Chemistries: NA 136-K4.3-CL 102-CO2 30-BUN 14-CRE 0.94-GLU 90 Discharge weight 59.1 kg, BMI 26.4 Hospital course: Hospital course: Noted to be hypoxic 88% on arrival, CT showed moderate right pleural effusion with compressive atelectasis. In addition patient was found to have left renal infarct as well as splenic infarcts which were considered to be embolic. Patient's INR was subtherapeutic on the arrival. Thoracentesis as above, cytology was negative for malignancy, concern possibly due to rheumatoid arthritis. Patient is to have follow-up with pulmonology and wants to transfer care to Dr. Mariee. She did develop atrial fib with rapid ventricular rate during the hospital course, which was treated temporarily with diltiazem drip, metoprolol was increased from 25 100 mg twice daily and amiodarone 200 mg twice daily was added with successful rate control. New medications: Discharge planning follow-up: Acute respiratory failure with hypoxia Acute exacerbation chronic pleural effusion Right splenic infarct Decompensated HFpEF Cystic renal mass Paroxysmal atrial fibrillation Leukocytosis Status post thoracentesis Mitral valve annular calcification, 1-2+ insufficiency stable Aortic valve diffuse calcification stable COPD Hypertension Subtherapeutic INR due to holding Coumadin for thoracentesis Medication reconciliation: Metoprolol tartrate 100 mg p.o. twice daily #60/0 Amiodarone 200 mg p.o. twice daily #60/0 Change medications: Warfarin 4 mg p.o. daily Discontinued medications: Warfarin 2 mg Metoprolol tartrate 75 mg p.o. twice daily Continue medications: Multivitamin 1 tablet daily Calcium carbonate 600 mg (1500 mg) tablet 1 p.o. daily Furosemide 40 mg p.o. twice daily Handicap placard Albuterol sulfate 90 MCG per actuation HFA inhaler: 2 puffs every 4 hours as needed shortness of breath Omeprazole 40 mg capsule daily AC Potassium chloride 20 mEq ER: 1 tablet twice daily Diltiazem 2040 mg capsule extended release 24-hour: 1 capsule daily Referral/follow-up: Dr. Flaquito Mariee pulmonology 2 weeks Hypokalemia 07/09/2021 11/08/2022 Hyponatremia 07/09/2021 11/08/2022 Hypoxemia 06/23/2021 11/08/2022 Hypoxia 06/23/2021 11/08/2022 Pleural effusion, right 05/05/2020 11/09/19 23 Overview: Now seeing Dr. Mariee Thoracic aorta atherosclerosis 03/23/2020 0 09/23/2020 Chronic systolic heart failure 11/21/2019 0 09/23/2020 Fatigue 11/24/2016 10/10/2017 Atrial fibrillation 01/14/2014 10/10/2017 Centrilobular emphysema 01/14/2014 11/09/19 23 Multiple thyroid nodules 03/03/2011 021 Hypertension 01/19/2011 06/23/2015 Esophagitis, unspecified 01/13/2009 018 Gastrointestinal malfunction arising from mental factors 12/09/2008 10/10/2017 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 Dysphagia, unspecified(787.20) 1 07/09/2017 documented as of this encounter (statuses as of 11/09/2022) [facility]04-17-2023 History of Past illness Narrative* Problem Noted Date Resolved Date Deviation of international n ormalized ratio (INR) from target range 09/19/2022 11/08/2022 History of surgical procedure 09/19/2022 Renal infarct 04/19/2022 07/26/2022 Overview: Has seen Dr. Chaney. Needs to just follow up prn. 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 Shortness of breath 09/16/2021 11/08/2022 Acute respiratory failure 07/22/20212022 Chronic passive congestion of liver 07/22/2021 11/08/2022 Cyst of kidney, acquired 07/22/2021 023 Ischemia and infarction of kidney 07/22/2021 11/08/2022 Overview: Has seen Dr Calvin Leukocytosis 07/22/2021 11/08/2022 Encounter for support and coordination of transi tion of care 07/20/2021 07/26/2022 Overview: Facility: [facility] Date of admission 07/14/2021 Date of discharge Prehospital work-up: Presented to 07/14/2021 to [facility] ED complaining of left-sided abdominal pain with multiple symptoms including cough, myalgias, nasal congestion, low dietary intake due to concerns that would aggravate stomach ache. Patient was exposed to Covid 2 weeks prior, unvaccinated. Vital signs: 98.3 [id number]/102-93% RA. Exam description: Tired, alert and nontoxic, normal respiratory effort, mild tenderness left upper quadrant without rebound or guarding. WBC 20.3-Hgb 14-HCT 43-PLT 388-Ig percent 0.5-absolute neutrophil 17 point 3H Lactic acid 1.2. Sodium 131-K3.8-CL 95-CO2 29.0, glucose 133, otherwise CMP is within normal limits. Calcium 9.1. Liver panel: Total bili 1.10H-AST 180-ALT 95-ALP 126-total protein 8.3-Albumin three-point 3-5 and 50.0-lipase 74. 07/14/2021 CT abdomen pelvis: Dilated main and bilateral pulmonary arteries suggesting pulmonary hypertension, moderate volume right pleural effusion with compressive atelectasis at right lower lobe, moderate cardiomegaly with dilated right ventricle and reflux of contrast in IVC suggesting right heart dysfunction. Heterogenous enhancement and decreased density of the left kidney new since CTA on 01/03/2014- may represent renal ischemia/infarction versus pyelonephritis, neoplasm not ruled out. 2.9 superior and lateral left renal cyst with delayed peripheral nodular enhancement suspicious for cystic renal neoplasm, MRI/CT with IV contrast recommended. Splenic infarction, given left renal and splenic infarctions embolic etiology should be considered. Patient was given IV fluids due to tachycardia, patient's anticoagulants were held for thoracentesis, so there were concerns about possible pulmonary emboli, CT was therefore ordered with negative findings. Case was discussed with hospitalist and decision to admit Patient was admitted under Dr. Maddie Nascimento: Acute problem list and plan: 1. Acute hypoxic respiratory failure secondary right-sided pleural effusion with decompensated RV dysfunction, elevated leukocytosis with recent hospitalization could have concurrent pneumonia: We will check strep pneumo, Legionella antigens, flu, RSV, thoracentesis ordered with fluid studies, O2 as needed, continue aerosol, leukocytosis coverage ordered with IV antibiotics. 2. Splenic/renal infarct: Suspected to be related to subtherapeutic INR and atrial fibrillation, heparin drip was started, patient had prior complications with Xarelto, has been on Coumadin but consider trial of Eliquis as an alternative. Echocardiogram ordered. 3. Leukocytosis: Cultures were ordered, empiric antibiotics, lactic acid normal. 4. Recurrent right-sided pleural effusion: May be related to pulmonary artery hypertension, CT shows marked dilatation of central vasculature without PE, echocardiogram ordered. Started on Lasix drip. 5. Decompensated right-sided heart failure: Lasix drip started, follow BMP, sodium restriction, consider right-sided heart cath, pulmonary medicine consult. 6. Cystic renal mass: Concerning for malignancy, abdominal MRI ordered, consult urology 7. PAF: Current atrial fibrillation, heparin drip started, again echocardiogram ordered to check for embolic sources, diltiazem and metoprolol continued. 8. GERD: Continue omeprazole 9. DVT prophylaxis: Heparin drip CODE STATUS: DNR CCA without intubation 07/14/[address] Malika Jain neurologist: increasing left upper quadrant and flank pain, atypical left renal cyst. Assessment and plan: Right renal cyst, renal infarction: No plans for intervention of 3 cm suspicious lesion during this admission, felt he could be done outpatient. 07/15/2021 consultation open soaper tender Dr. Dwayne Garcia: Assessment right pleural effusion: Continue diuretic therapy, empiric antimicrobials, thoracentesis recommended, eventual right heart cath work and secondary work-up for pH outpatient basis. 07/15/2021 echocardiogram: LV size and LV SF WNL, EF 60 to 65%. RV normal size and RV SF EF. Left atrium moderately enlarged, right atrium mildly enlarged. MV: Moderate mitral annular calcification, 1-2+ MA. TV: Normal. AV: Diffuse aortic valve calcification. PV: Not well visualized. Great vessels and aortic root normal. No pericardial effusion. No significant changes from prior echo. 07/15/2021 MR abdomen with and without IV contrast: Large right pleural effusion, moderate cardiomegaly, distended inferior vena cava and hepatic veins indicative of right-sided heart failure. Scarring of spleen related to old ischemia trauma, multiple nonenhancing lesions in the left kidney identified with contrast which may be related to inflammatory or infectious process 07/16/2021: Ultrasound-guided thoracentesis Dr. Gary Reyes: 670 mL of blood-tinged cloudy fluid drained and sent for analysis Chest x-ray following: Status post right thoracentesis no evidence of hemothorax, residual blunting of right costophrenic angle. Pertinent lab summary: 07/14/2021 blood cultures x2 sites showed no growth over 5 days. Urine clean catch for Legionella and Streptococcus pneumonia both negative. Nasal swab for rapid RSV and influenza as well as SARS Covid-2 all negative. 07/22/2021 WBC 10.2-Hgb 12.1-HCT 37-PLT 338. Chemistries: NA 136-K4.3-CL 102-CO2 30-BUN 14-CRE 0.94-GLU 90 Discharge weight 59.1 kg, BMI 26.4 Hospital course: Hospital course: Noted to be hypoxic 88% on arrival, CT showed moderate right pleural effusion with compressive atelectasis. In addition patient was found to have left renal infarct as well as splenic infarcts which were considered to be embolic. Patient's INR was subtherapeutic on the arrival. Thoracentesis as above, cytology was negative for malignancy, concern possibly due to rheumatoid arthritis. Patient is to have follow-up with pulmonology and wants to transfer care to Dr. Mariee. She did develop atrial fib with rapid ventricular rate during the hospital course, which was treated temporarily with diltiazem drip, metoprolol was increased from 25 100 mg twice daily and amiodarone 200 mg twice daily was added with successful rate control. New medications: Discharge planning follow-up: Acute respiratory failure with hypoxia Acute exacerbation chronic pleural effusion Right splenic infarct Decompensated HFpEF Cystic renal mass Paroxysmal atrial fibrillation Leukocytosis Status post thoracentesis Mitral valve annular calcification, 1-2+ insufficiency stable Aortic valve diffuse calcification stable COPD Hypertension Subtherapeutic INR due to holding Coumadin for thoracentesis Medication reconciliation: Metoprolol tartrate 100 mg p.o. twice daily #60/0 Amiodarone 200 mg p.o. twice daily #60/0 Change medications: Warfarin 4 mg p.o. daily Discontinued medications: Warfarin 2 mg Metoprolol tartrate 75 mg p.o. twice daily Continue medications: Multivitamin 1 tablet daily Calcium carbonate 600 mg (1500 mg) tablet 1 p.o. daily Furosemide 40 mg p.o. twice daily Handicap placard Albuterol sulfate 90 MCG per actuation HFA inhaler: 2 puffs every 4 hours as needed shortness of breath Omeprazole 40 mg capsule daily AC Potassium chloride 20 mEq ER: 1 tablet twice daily Diltiazem 2040 mg capsule extended release 24-hour: 1 capsule daily Referral/follow-up: Dr. Flaquito Mariee pulmonology 2 weeks Hypokalemia 07/09/2021 11/08/2022 Hyponatremia 07/09/2021 11/08/2022 Hypoxemia 06/23/2021 11/08/2022 Hypoxia 06/23/2021 11/08/2022 Pleural effusion, right 05/05/2020 11/09/19 23 Overview: Now seeing Dr. Mariee Thoracic aorta atherosclerosis 03/23/2020 0 09/23/2020 Chronic systolic heart failure 11/21/2019 0 09/23/2020 Fatigue 11/24/2016 10/10/2017 Atrial fibrillation 01/14/2014 10/10/2017 Centrilobular emphysema 01/14/2014 11/09/19 23 Multiple thyroid nodules 03/03/2011 021 Hypertension 01/19/2011 06/23/2015 Esophagitis, unspecified 01/13/2009 018 Gastrointestinal malfunction arising from mental factors 12/09/2008 10/10/2017 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 Dysphagia, unspecified(787.20) 1 07/09/2017 documented as of this encounter (statuses as of 11/25/2022) [facility]04-17-2023 History of Past illness Narrative* Problem Noted Date Resolved Date Deviation of international n ormalized ratio (INR) from target range 09/19/2022 11/08/2022 History of surgical procedure 09/19/2022 Renal infarct 04/19/2022 07/26/2022 Overview: Has seen Dr. Chaney. Needs to just follow up prn. 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 Shortness of breath 09/16/2021 11/08/2022 Acute respiratory failure 07/22/20212022 Chronic passive congestion of liver 07/22/2021 11/08/2022 Cyst of kidney, acquired 07/22/2021 023 Ischemia and infarction of kidney 07/22/2021 11/08/2022 Overview: Has seen Dr Calvin Leukocytosis 07/22/2021 11/08/2022 Encounter for support and coordination of transi tion of care 07/20/2021 07/26/2022 Overview: Facility: [facility] Date of admission 07/14/2021 Date of discharge Prehospital work-up: Presented to 07/14/2021 to [facility] ED complaining of left-sided abdominal pain with multiple symptoms including cough, myalgias, nasal congestion, low dietary intake due to concerns that would aggravate stomach ache. Patient was exposed to Covid 2 weeks prior, unvaccinated. Vital signs: 98.3 L-666-35-143/102-93% RA. Exam description: Tired, alert and nontoxic, normal respiratory effort, mild tenderness left upper quadrant without rebound or guarding. WBC 20.3-Hgb 14-HCT 43-PLT 388-Ig percent 0.5-absolute neutrophil 17 point 3H Lactic acid 1.2. Sodium 131-K3.8-CL 95-CO2 29.0, glucose 133, otherwise CMP is within normal limits. Calcium 9.1. Liver panel: Total bili 1.10H-AST 180-ALT 95-ALP 126-total protein 8.3-Albumin three-point 3-5 and 50.0-lipase 74. 07/14/2021 CT abdomen pelvis: Dilated main and bilateral pulmonary arteries suggesting pulmonary hypertension, moderate volume right pleural effusion with compressive atelectasis at right lower lobe, moderate cardiomegaly with dilated right ventricle and reflux of contrast in IVC suggesting right heart dysfunction. Heterogenous enhancement and decreased density of the left kidney new since CTA on 01/03/2014- may represent renal ischemia/infarction versus pyelonephritis, neoplasm not ruled out. 2.9 superior and lateral left renal cyst with delayed peripheral nodular enhancement suspicious for cystic renal neoplasm, MRI/CT with IV contrast recommended. Splenic infarction, given left renal and splenic infarctions embolic etiology should be considered. Patient was given IV fluids due to tachycardia, patient's anticoagulants were held for thoracentesis, so there were concerns about possible pulmonary emboli, CT was therefore ordered with negative findings. Case was discussed with hospitalist and decision to admit Patient was admitted under Dr. Mdadie Nascimento: Acute problem list and plan: 1. Acute hypoxic respiratory failure secondary right-sided pleural effusion with decompensated RV dysfunction, elevated leukocytosis with recent hospitalization could have concurrent pneumonia: We will check strep pneumo, Legionella antigens, flu, RSV, thoracentesis ordered with fluid studies, O2 as needed, continue aerosol, leukocytosis coverage ordered with IV antibiotics. 2. Splenic/renal infarct: Suspected to be related to subtherapeutic INR and atrial fibrillation, heparin drip was started, patient had prior complications with Xarelto, has been on Coumadin but consider trial of Eliquis as an alternative. Echocardiogram ordered. 3. Leukocytosis: Cultures were ordered, empiric antibiotics, lactic acid normal. 4. Recurrent right-sided pleural effusion: May be related to pulmonary artery hypertension, CT shows marked dilatation of central vasculature without PE, echocardiogram ordered. Started on Lasix drip. 5. Decompensated right-sided heart failure: Lasix drip started, follow BMP, sodium restriction, consider right-sided heart cath, pulmonary medicine consult. 6. Cystic renal mass: Concerning for malignancy, abdominal MRI ordered, consult urology 7. PAF: Current atrial fibrillation, heparin drip started, again echocardiogram ordered to check for embolic sources, diltiazem and metoprolol continued. 8. GERD: Continue omeprazole 9. DVT prophylaxis: Heparin drip CODE STATUS: DNR CCA without intubation 07/14/[address] Malika Jain neurologist: increasing left upper quadrant and flank pain, atypical left renal cyst. Assessment and plan: Right renal cyst, renal infarction: No plans for intervention of 3 cm suspicious lesion during this admission, felt he could be done outpatient. 07/15/2021 consultation open soaper tender Dr. Dwayne Garcia: Assessment right pleural effusion: Continue diuretic therapy, empiric antimicrobials, thoracentesis recommended, eventual right heart cath work and secondary work-up for pH outpatient basis. 07/15/2021 echocardiogram: LV size and LV SF WNL, EF 60 to 65%. RV normal size and RV SF EF. Left atrium moderately enlarged, right atrium mildly enlarged. MV: Moderate mitral annular calcification, 1-2+ MA. TV: Normal. AV: Diffuse aortic valve calcification. PV: Not well visualized. Great vessels and aortic root normal. No pericardial effusion. No significant changes from prior echo. 07/15/2021 MR abdomen with and without IV contrast: Large right pleural effusion, moderate cardiomegaly, distended inferior vena cava and hepatic veins indicative of right-sided heart failure. Scarring of spleen related to old ischemia trauma, multiple nonenhancing lesions in the left kidney identified with contrast which may be related to inflammatory or infectious process 07/16/2021: Ultrasound-guided thoracentesis Dr. Gary Reyes: 670 mL of blood-tinged cloudy fluid drained and sent for analysis Chest x-ray following: Status post right thoracentesis no evidence of hemothorax, residual blunting of right costophrenic angle. Pertinent lab summary: 07/14/2021 blood cultures x2 sites showed no growth over 5 days. Urine clean catch for Legionella and Streptococcus pneumonia both negative. Nasal swab for rapid RSV and influenza as well as SARS Covid-2 all negative. 07/22/2021 WBC 10.2-Hgb 12.1-HCT 37-PLT 338. Chemistries: NA 136-K4.3-CL 102-CO2 30-BUN 14-CRE 0.94-GLU 90 Discharge weight 59.1 kg, BMI 26.4 Hospital course: Hospital course: Noted to be hypoxic 88% on arrival, CT showed moderate right pleural effusion with compressive atelectasis. In addition patient was found to have left renal infarct as well as splenic infarcts which were considered to be embolic. Patient's INR was subtherapeutic on the arrival. Thoracentesis as above, cytology was negative for malignancy, concern possibly due to rheumatoid arthritis. Patient is to have follow-up with pulmonology and wants to transfer care to Dr. Mariee. She did develop atrial fib with rapid ventricular rate during the hospital course, which was treated temporarily with diltiazem drip, metoprolol was increased from 25 100 mg twice daily and amiodarone 200 mg twice daily was added with successful rate control. New medications: Discharge planning follow-up: Acute respiratory failure with hypoxia Acute exacerbation chronic pleural effusion Right splenic infarct Decompensated HFpEF Cystic renal mass Paroxysmal atrial fibrillation Leukocytosis Status post thoracentesis Mitral valve annular calcification, 1-2+ insufficiency stable Aortic valve diffuse calcification stable COPD Hypertension Subtherapeutic INR due to holding Coumadin for thoracentesis Medication reconciliation: Metoprolol tartrate 100 mg p.o. twice daily #60/0 Amiodarone 200 mg p.o. twice daily #60/0 Change medications: Warfarin 4 mg p.o. daily Discontinued medications: Warfarin 2 mg Metoprolol tartrate 75 mg p.o. twice daily Continue medications: Multivitamin 1 tablet daily Calcium carbonate 600 mg (1500 mg) tablet 1 p.o. daily Furosemide 40 mg p.o. twice daily Handicap placard Albuterol sulfate 90 MCG per actuation HFA inhaler: 2 puffs every 4 hours as needed shortness of breath Omeprazole 40 mg capsule daily AC Potassium chloride 20 mEq ER: 1 tablet twice daily Diltiazem 2040 mg capsule extended release 24-hour: 1 capsule daily Referral/follow-up: Dr. Flaquito Mariee pulmonology 2 weeks Hypokalemia 07/09/2021 11/08/2022 Hyponatremia 07/09/2021 11/08/2022 Hypoxemia 06/23/2021 11/08/2022 Hypoxia 06/23/2021 11/08/2022 Pleural effusion, right 05/05/2020 11/09/19 23 Overview: Now seeing Dr. Mariee Thoracic aorta atherosclerosis 03/23/2020 0 09/23/2020 Chronic systolic heart failure 11/21/2019 0 09/23/2020 Fatigue 11/24/2016 10/10/2017 Atrial fibrillation 01/14/2014 10/10/2017 Centrilobular emphysema 01/14/2014 11/09/19 23 Multiple thyroid nodules 03/03/2011 021 Hypertension 01/19/2011 06/23/2015 Esophagitis, unspecified 01/13/2009 018 Gastrointestinal malfunction arising from mental factors 12/09/2008 10/10/2017 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 Dysphagia, unspecified(787.20) 1 07/09/2017 documented as of this encounter (statuses as of 12/02/2022) [facility]04-17-2023 History of Past illness Narrative* Problem Noted Date Resolved Date Deviation of international n ormalized ratio (INR) from target range 09/19/2022 11/08/2022 History of surgical procedure 09/19/2022 Renal infarct 04/19/2022 07/26/2022 Overview: Has seen Dr. Chaney. Needs to just follow up prn. 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 Shortness of breath 09/16/2021 11/08/2022 Acute respiratory failure 07/22/20212022 Chronic passive congestion of liver 07/22/2021 11/08/2022 Cyst of kidney, acquired 07/22/2021 023 Ischemia and infarction of kidney 07/22/2021 11/08/2022 Overview: Has seen Dr Calvin Leukocytosis 07/22/2021 11/08/2022 Encounter for support and coordination of transi tion of care 07/20/2021 07/26/2022 Overview: Facility: [facility] Date of admission 07/14/2021 Date of discharge Prehospital work-up: Presented to 07/14/2021 to [facility] ED complaining of left-sided abdominal pain with multiple symptoms including cough, myalgias, nasal congestion, low dietary intake due to concerns that would aggravate stomach ache. Patient was exposed to Covid 2 weeks prior, unvaccinated. Vital signs: 98.3 D-140-32-143/102-93% RA. Exam description: Tired, alert and nontoxic, normal respiratory effort, mild tenderness left upper quadrant without rebound or guarding. WBC 20.3-Hgb 14-HCT 43-PLT 388-Ig percent 0.5-absolute neutrophil 17 point 3H Lactic acid 1.2. Sodium 131-K3.8-CL 95-CO2 29.0, glucose 133, otherwise CMP is within normal limits. Calcium 9.1. Liver panel: Total bili 1.10H-AST 180-ALT 95-ALP 126-total protein 8.3-Albumin three-point 3-5 and 50.0-lipase 74. 07/14/2021 CT abdomen pelvis: Dilated main and bilateral pulmonary arteries suggesting pulmonary hypertension, moderate volume right pleural effusion with compressive atelectasis at right lower lobe, moderate cardiomegaly with dilated right ventricle and reflux of contrast in IVC suggesting right heart dysfunction. Heterogenous enhancement and decreased density of the left kidney new since CTA on 01/03/2014- may represent renal ischemia/infarction versus pyelonephritis, neoplasm not ruled out. 2.9 superior and lateral left renal cyst with delayed peripheral nodular enhancement suspicious for cystic renal neoplasm, MRI/CT with IV contrast recommended. Splenic infarction, given left renal and splenic infarctions embolic etiology should be considered. Patient was given IV fluids due to tachycardia, patient's anticoagulants were held for thoracentesis, so there were concerns about possible pulmonary emboli, CT was therefore ordered with negative findings. Case was discussed with hospitalist and decision to admit Patient was admitted under Dr. Maddie Nascimento: Acute problem list and plan: 1. Acute hypoxic respiratory failure secondary right-sided pleural effusion with decompensated RV dysfunction, elevated leukocytosis with recent hospitalization could have concurrent pneumonia: We will check strep pneumo, Legionella antigens, flu, RSV, thoracentesis ordered with fluid studies, O2 as needed, continue aerosol, leukocytosis coverage ordered with IV antibiotics. 2. Splenic/renal infarct: Suspected to be related to subtherapeutic INR and atrial fibrillation, heparin drip was started, patient had prior complications with Xarelto, has been on Coumadin but consider trial of Eliquis as an alternative. Echocardiogram ordered. 3. Leukocytosis: Cultures were ordered, empiric antibiotics, lactic acid normal. 4. Recurrent right-sided pleural effusion: May be related to pulmonary artery hypertension, CT shows marked dilatation of central vasculature without PE, echocardiogram ordered. Started on Lasix drip. 5. Decompensated right-sided heart failure: Lasix drip started, follow BMP, sodium restriction, consider right-sided heart cath, pulmonary medicine consult. 6. Cystic renal mass: Concerning for malignancy, abdominal MRI ordered, consult urology 7. PAF: Current atrial fibrillation, heparin drip started, again echocardiogram ordered to check for embolic sources, diltiazem and metoprolol continued. 8. GERD: Continue omeprazole 9. DVT prophylaxis: Heparin drip CODE STATUS: DNR CCA without intubation 07/14/[address] Malika Jain neurologist: increasing left upper quadrant and flank pain, atypical left renal cyst. Assessment and plan: Right renal cyst, renal infarction: No plans for intervention of 3 cm suspicious lesion during this admission, felt he could be done outpatient. 07/15/2021 consultation open soaper tender Dr. Dwayne Garcia: Assessment right pleural effusion: Continue diuretic therapy, empiric antimicrobials, thoracentesis recommended, eventual right heart cath work and secondary work-up for pH outpatient basis. 07/15/2021 echocardiogram: LV size and LV SF WNL, EF 60 to 65%. RV normal size and RV SF EF. Left atrium moderately enlarged, right atrium mildly enlarged. MV: Moderate mitral annular calcification, 1-2+ MA. TV: Normal. AV: Diffuse aortic valve calcification. PV: Not well visualized. Great vessels and aortic root normal. No pericardial effusion. No significant changes from prior echo. 07/15/2021 MR abdomen with and without IV contrast: Large right pleural effusion, moderate cardiomegaly, distended inferior vena cava and hepatic veins indicative of right-sided heart failure. Scarring of spleen related to old ischemia trauma, multiple nonenhancing lesions in the left kidney identified with contrast which may be related to inflammatory or infectious process 07/16/2021: Ultrasound-guided thoracentesis Dr. Gary Reyes: 670 mL of blood-tinged cloudy fluid drained and sent for analysis Chest x-ray following: Status post right thoracentesis no evidence of hemothorax, residual blunting of right costophrenic angle. Pertinent lab summary: 07/14/2021 blood cultures x2 sites showed no growth over 5 days. Urine clean catch for Legionella and Streptococcus pneumonia both negative. Nasal swab for rapid RSV and influenza as well as SARS Covid-2 all negative. 07/22/2021 WBC 10.2-Hgb 12.1-HCT 37-PLT 338. Chemistries: NA 136-K4.3-CL 102-CO2 30-BUN 14-CRE 0.94-GLU 90 Discharge weight 59.1 kg, BMI 26.4 Hospital course: Hospital course: Noted to be hypoxic 88% on arrival, CT showed moderate right pleural effusion with compressive atelectasis. In addition patient was found to have left renal infarct as well as splenic infarcts which were considered to be embolic. Patient's INR was subtherapeutic on the arrival. Thoracentesis as above, cytology was negative for malignancy, concern possibly due to rheumatoid arthritis. Patient is to have follow-up with pulmonology and wants to transfer care to Dr. Mariee. She did develop atrial fib with rapid ventricular rate during the hospital course, which was treated temporarily with diltiazem drip, metoprolol was increased from 25 100 mg twice daily and amiodarone 200 mg twice daily was added with successful rate control. New medications: Discharge planning follow-up: Acute respiratory failure with hypoxia Acute exacerbation chronic pleural effusion Right splenic infarct Decompensated HFpEF Cystic renal mass Paroxysmal atrial fibrillation Leukocytosis Status post thoracentesis Mitral valve annular calcification, 1-2+ insufficiency stable Aortic valve diffuse calcification stable COPD Hypertension Subtherapeutic INR due to holding Coumadin for thoracentesis Medication reconciliation: Metoprolol tartrate 100 mg p.o. twice daily #60/0 Amiodarone 200 mg p.o. twice daily #60/0 Change medications: Warfarin 4 mg p.o. daily Discontinued medications: Warfarin 2 mg Metoprolol tartrate 75 mg p.o. twice daily Continue medications: Multivitamin 1 tablet daily Calcium carbonate 600 mg (1500 mg) tablet 1 p.o. daily Furosemide 40 mg p.o. twice daily Handicap placard Albuterol sulfate 90 MCG per actuation HFA inhaler: 2 puffs every 4 hours as needed shortness of breath Omeprazole 40 mg capsule daily AC Potassium chloride 20 mEq ER: 1 tablet twice daily Diltiazem 2040 mg capsule extended release 24-hour: 1 capsule daily Referral/follow-up: Dr. Flaquito Mariee pulmonology 2 weeks Hypokalemia 07/09/2021 11/08/2022 Hyponatremia 07/09/2021 11/08/2022 Hypoxemia 06/23/2021 11/08/2022 Hypoxia 06/23/2021 11/08/2022 Pleural effusion, right 05/05/2020 11/09/19 23 Overview: Now seeing Dr. Mairee Thoracic aorta atherosclerosis 03/23/2020 0 09/23/2020 Chronic systolic heart failure 11/21/2019 0 09/23/2020 Fatigue 11/24/2016 10/10/2017 Atrial fibrillation 01/14/2014 10/10/2017 Centrilobular emphysema 01/14/2014 11/09/19 23 Multiple thyroid nodules 03/03/2011 021 Hypertension 01/19/2011 06/23/2015 Esophagitis, unspecified 01/13/2009 018 Gastrointestinal malfunction arising from mental factors 12/09/2008 10/10/2017 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 Dysphagia, unspecified(787.20) 1 07/09/2017 documented as of this encounter (statuses as of 12/09/2022) [facility]04-17-2023 History of Past illness Narrative* Problem Noted Date Diagnosed Date Resolved Date Deviation of international n ormalized ratio (INR) from target range 09/19/2022 11/08/2022 History of surgical procedure 09/19/2022 11/08/2022 Renal infarct 04/19/2022 07/26/2022 Overview: Has seen Dr. Chaney. Needs to just follow up prn. Dehydration 02/03/2022 11/08/2022 Gram-negative bacteremia 02/03/202211/2022 Hypophosphatemia 02/03/2022 11/08/2022 Pneumonia 02/03/2022 11/08/2022 Pyothorax without fistula 02/03/2022 Pleural effusion 01/31/2022 04/19/2022 Abnormal levels of other serum enzymes 11/11/2021 11/08/2022 Elevated liver enzymes 11/11/202111/08 Neoplasm of uncertain behavior of left kidney 09/24/19 22 11/08/2022 Shortness of breath 09/16/2021 11/09/19 Acute respiratory failure 07/22/2021 Chronic passive congestion of liver 07/22/2021 11/08/2022 Cyst of kidney, acquired 07/22/202111/2022 Ischemia and infarction of kidney 07/22/2021 11/08/2022 Overview: Has seen Dr Calvin Leukocytosis 07/22/2021 11/08/2022 Encounter for support and co ordination of transition of care 07/20/2021 07/26/2022 Overview: Facility: [facility] Date of admission 07/14/2021 Date of discharge Prehospital work-up: Presented to 07/14/2021 to [facility] ED complaining of left-sided abdominal pain with multiple symptoms including cough, myalgias, nasal congestion, low dietary intake due to concerns that would aggravate stomach ache. Patient was exposed to Covid 2 weeks prior, unvaccinated. Vital signs: 98.3 F-222-61-143/102-93% RA. Exam description: Tired, alert and nontoxic, normal respiratory effort, mild tenderness left upper quadrant without rebound or guarding. WBC 20.3-Hgb 14-HCT 43-PLT 388-Ig percent 0.5-absolute neutrophil 17 point 3H Lactic acid 1.2. Sodium 131-K3.8-CL 95-CO2 29.0, glucose 133, otherwise CMP is within normal limits. Calcium 9.1. Liver panel: Total bili 1.10H-AST 180-ALT 95-ALP 126-total protein 8.3-Albumin three-point 3-5 and 50.0-lipase 74. 07/14/2021 CT abdomen pelvis: Dilated main and bilateral pulmonary arteries suggesting pulmonary hypertension, moderate volume right pleural effusion with compressive atelectasis at right lower lobe, moderate cardiomegaly with dilated right ventricle and reflux of contrast in IVC suggesting right heart dysfunction. Heterogenous enhancement and decreased density of the left kidney new since CTA on 01/03/2014- may represent renal ischemia/infarction versus pyelonephritis, neoplasm not ruled out. 2.9 superior and lateral left renal cyst with delayed peripheral nodular enhancement suspicious for cystic renal neoplasm, MRI/CT with IV contrast recommended. Splenic infarction, given left renal and splenic infarctions embolic etiology should be considered. Patient was given IV fluids due to tachycardia, patient's anticoagulants were held for thoracentesis, so there were concerns about possible pulmonary emboli, CT was therefore ordered with negative findings. Case was discussed with hospitalist and decision to admit Patient was admitted under Dr. Maddie Nascimento: Acute problem list and plan: 1. Acute hypoxic respiratory failure secondary right-sided pleural effusion with decompensated RV dysfunction, elevated leukocytosis with recent hospitalization could have concurrent pneumonia: We will check strep pneumo, Legionella antigens, flu, RSV, thoracentesis ordered with fluid studies, O2 as needed, continue aerosol, leukocytosis coverage ordered with IV antibiotics. 2. Splenic/renal infarct: Suspected to be related to subtherapeutic INR and atrial fibrillation, heparin drip was started, patient had prior complications with Xarelto, has been on Coumadin but consider trial of Eliquis as an alternative. Echocardiogram ordered. 3. Leukocytosis: Cultures were ordered, empiric antibiotics, lactic acid normal. 4. Recurrent right-sided pleural effusion: May be related to pulmonary artery hypertension, CT shows marked dilatation of central vasculature without PE, echocardiogram ordered. Started on Lasix drip. 5. Decompensated right-sided heart failure: Lasix drip started, follow BMP, sodium restriction, consider right-sided heart cath, pulmonary medicine consult. 6. Cystic renal mass: Concerning for malignancy, abdominal MRI ordered, consult urology 7. PAF: Current atrial fibrillation, heparin drip started, again echocardiogram ordered to check for embolic sources, diltiazem and metoprolol continued. 8. GERD: Continue omeprazole 9. DVT prophylaxis: Heparin drip CODE STATUS: DNR CCA without intubation 07/14/[address] Malika Jain neurologist: increasing left upper quadrant and flank pain, atypical left renal cyst. Assessment and plan: Right renal cyst, renal infarction: No plans for intervention of 3 cm suspicious lesion during this admission, felt he could be done outpatient. 07/15/2021 consultation open soaper tender Dr. Dwayne Garcia: Assessment right pleural effusion: Continue diuretic therapy, empiric antimicrobials, thoracentesis recommended, eventual right heart cath work and secondary work-up for pH outpatient basis. 07/15/2021 echocardiogram: LV size and LV SF WNL, EF 60 to 65%. RV normal size and RV SF EF. Left atrium moderately enlarged, right atrium mildly enlarged. MV: Moderate mitral annular calcification, 1-2+ MA. TV: Normal. AV: Diffuse aortic valve calcification. PV: Not well visualized. Great vessels and aortic root normal. No pericardial effusion. No significant changes from prior echo. 07/15/2021 MR abdomen with and without IV contrast: Large right pleural effusion, moderate cardiomegaly, distended inferior vena cava and hepatic veins indicative of right-sided heart failure. Scarring of spleen related to old ischemia trauma, multiple nonenhancing lesions in the left kidney identified with contrast which may be related to inflammatory or infectious process 07/16/2021: Ultrasound-guided thoracentesis Dr. Gary Reyes: 670 mL of blood-tinged cloudy fluid drained and sent for analysis Chest x-ray following: Status post right thoracentesis no evidence of hemothorax, residual blunting of right costophrenic angle. Pertinent lab summary: 07/14/2021 blood cultures x2 sites showed no growth over 5 days. Urine clean catch for Legionella and Streptococcus pneumonia both negative. Nasal swab for rapid RSV and influenza as well as SARS Covid-2 all negative. 07/22/2021 WBC 10.2-Hgb 12.1-HCT 37-PLT 338. Chemistries: NA 136-K4.3-CL 102-CO2 30-BUN 14-CRE 0.94-GLU 90 Discharge weight 59.1 kg, BMI 26.4 Hospital course: Hospital course: Noted to be hypoxic 88% on arrival, CT showed moderate right pleural effusion with compressive atelectasis. In addition patient was found to have left renal infarct as well as splenic infarcts which were considered to be embolic. Patient's INR was subtherapeutic on the arrival. Thoracentesis as above, cytology was negative for malignancy, concern possibly due to rheumatoid arthritis. Patient is to have follow-up with pulmonology and wants to transfer care to Dr. Mariee. She did develop atrial fib with rapid ventricular rate during the hospital course, which was treated temporarily with diltiazem drip, metoprolol was increased from 25 100 mg twice daily and amiodarone 200 mg twice daily was added with successful rate control. New medications: Discharge planning follow-up: Acute respiratory failure with hypoxia Acute exacerbation chronic pleural effusion Right splenic infarct Decompensated HFpEF Cystic renal mass Paroxysmal atrial fibrillation Leukocytosis Status post thoracentesis Mitral valve annular calcification, 1-2+ insufficiency stable Aortic valve diffuse calcification stable COPD Hypertension Subtherapeutic INR due to holding Coumadin for thoracentesis Medication reconciliation: Metoprolol tartrate 100 mg p.o. twice daily #60/0 Amiodarone 200 mg p.o. twice daily #60/0 Change medications: Warfarin 4 mg p.o. daily Discontinued medications: Warfarin 2 mg Metoprolol tartrate 75 mg p.o. twice daily Continue medications: Multivitamin 1 tablet daily Calcium carbonate 600 mg (1500 mg) tablet 1 p.o. daily Furosemide 40 mg p.o. twice daily Handicap placard Albuterol sulfate 90 MCG per actuation HFA inhaler: 2 puffs every 4 hours as needed shortness of breath Omeprazole 40 mg capsule daily AC Potassium chloride 20 mEq ER: 1 tablet twice daily Diltiazem 2040 mg capsule extended release 24-hour: 1 capsule daily Referral/follow-up: Dr. Flaquito Mariee pulmonology 2 weeks Hypokalemia 07/09/2021 11/08/2022 Hyponatremia 07/09/2021 11/08/2022 Hypoxemia 06/23/2021 11/08/2022 Hypoxia 06/23/2021 11/08/2022 Pleural effusion, right 05/05/20200 11/2022 Overview: Now seeing Dr. Mariee Thoracic aorta atherosclerosis 03/23/2020 09/23/2020 Chronic systolic heart failure 11/21/2019 09/23/2020 Fatigue 11/24/2016 10/10/2017 Atrial fibrillation 01/14/2014 10/11/19 Centrilobular emphysema 01/14/201411/2022 Multiple thyroid nodules 03/03/2011 Hypertension 01/19/2011 06/23/2015 Esophagitis, unspecified 01/13/200901/2018 Gastrointestinal malfunction arising from mental factors 12/09/2008 10/10/2017 Nontoxic multinodular goiter 12/08/2008 05/08/2018 Dysphagia, unspecified(787.20) 05/08/2018 documented as of this encounter (statuses as of 01/04/2023) [facility]04-17-2023 History of Past illness Narrative* Problem Noted Date Diagnosed Date Resolved Date Deviation of international n ormalized ratio (INR) from target range 09/19/2022 11/08/2022 History of surgical procedure 09/19/2022 11/08/2022 Renal infarct 04/19/2022 07/26/2022 Overview: Has seen Dr. Chaney. Needs to just follow up prn. Dehydration 02/03/2022 11/08/2022 Gram-negative bacteremia 02/03/202211/2022 Hypophosphatemia 02/03/2022 11/08/2022 Pneumonia 02/03/2022 11/08/2022 Pyothorax without fistula 02/03/2022 Pleural effusion 01/31/2022 04/19/2022 Abnormal levels of other serum enzymes 11/11/2021 11/08/2022 Elevated liver enzymes 11/11/202111/08 Neoplasm of uncertain behavior of left kidney 09/24/19 22 11/08/2022 Shortness of breath 09/16/2021 11/09/19 23 Acute respiratory failure 07/22/2021 Chronic passive congestion of liver 07/22/2021 11/08/2022 Cyst of kidney, acquired 07/22/202111/2022 Ischemia and infarction of kidney 07/22/2021 11/08/2022 Overview: Has seen Dr Calvin Leukocytosis 07/22/2021 11/08/2022 Encounter for support and co ordination of transition of care 07/20/2021 07/26/2022 Overview: Facility: [facility] Date of admission 07/14/2021 Date of discharge Prehospital work-up: Presented to 07/14/2021 to [facility] ED complaining of left-sided abdominal pain with multiple symptoms including cough, myalgias, nasal congestion, low dietary intake due to concerns that would aggravate stomach ache. Patient was exposed to Covid 2 weeks prior, unvaccinated. Vital signs: 98.3 Q-752-45-143/102-93% RA. Exam description: Tired, alert and nontoxic, normal respiratory effort, mild tenderness left upper quadrant without rebound or guarding. WBC 20.3-Hgb 14-HCT 43-PLT 388-Ig percent 0.5-absolute neutrophil 17 point 3H Lactic acid 1.2. Sodium 131-K3.8-CL 95-CO2 29.0, glucose 133, otherwise CMP is within normal limits. Calcium 9.1. Liver panel: Total bili 1.10H-AST 180-ALT 95-ALP 126-total protein 8.3-Albumin three-point 3-5 and 50.0-lipase 74. 07/14/2021 CT abdomen pelvis: Dilated main and bilateral pulmonary arteries suggesting pulmonary hypertension, moderate volume right pleural effusion with compressive atelectasis at right lower lobe, moderate cardiomegaly with dilated right ventricle and reflux of contrast in IVC suggesting right heart dysfunction. Heterogenous enhancement and decreased density of the left kidney new since CTA on 01/03/2014- may represent renal ischemia/infarction versus pyelonephritis, neoplasm not ruled out. 2.9 superior and lateral left renal cyst with delayed peripheral nodular enhancement suspicious for cystic renal neoplasm, MRI/CT with IV contrast recommended. Splenic infarction, given left renal and splenic infarctions embolic etiology should be considered. Patient was given IV fluids due to tachycardia, patient's anticoagulants were held for thoracentesis, so there were concerns about possible pulmonary emboli, CT was therefore ordered with negative findings. Case was discussed with hospitalist and decision to admit Patient was admitted under Dr. Maddie Nascimento: Acute problem list and plan: 1. Acute hypoxic respiratory failure secondary right-sided pleural effusion with decompensated RV dysfunction, elevated leukocytosis with recent hospitalization could have concurrent pneumonia: We will check strep pneumo, Legionella antigens, flu, RSV, thoracentesis ordered with fluid studies, O2 as needed, continue aerosol, leukocytosis coverage ordered with IV antibiotics. 2. Splenic/renal infarct: Suspected to be related to subtherapeutic INR and atrial fibrillation, heparin drip was started, patient had prior complications with Xarelto, has been on Coumadin but consider trial of Eliquis as an alternative. Echocardiogram ordered. 3. Leukocytosis: Cultures were ordered, empiric antibiotics, lactic acid normal. 4. Recurrent right-sided pleural effusion: May be related to pulmonary artery hypertension, CT shows marked dilatation of central vasculature without PE, echocardiogram ordered. Started on Lasix drip. 5. Decompensated right-sided heart failure: Lasix drip started, follow BMP, sodium restriction, consider right-sided heart cath, pulmonary medicine consult. 6. Cystic renal mass: Concerning for malignancy, abdominal MRI ordered, consult urology 7. PAF: Current atrial fibrillation, heparin drip started, again echocardiogram ordered to check for embolic sources, diltiazem and metoprolol continued. 8. GERD: Continue omeprazole 9. DVT prophylaxis: Heparin drip CODE STATUS: DNR CCA without intubation 07/14/[address] Mailka Jain neurologist: increasing left upper quadrant and flank pain, atypical left renal cyst. Assessment and plan: Right renal cyst, renal infarction: No plans for intervention of 3 cm suspicious lesion during this admission, felt he could be done outpatient. 07/15/2021 consultation open soaper tender Dr. Dwayne Garcia: Assessment right pleural effusion: Continue diuretic therapy, empiric antimicrobials, thoracentesis recommended, eventual right heart cath work and secondary work-up for pH outpatient basis. 07/15/2021 echocardiogram: LV size and LV SF WNL, EF 60 to 65%. RV normal size and RV SF EF. Left atrium moderately enlarged, right atrium mildly enlarged. MV: Moderate mitral annular calcification, 1-2+ MA. TV: Normal. AV: Diffuse aortic valve calcification. PV: Not well visualized. Great vessels and aortic root normal. No pericardial effusion. No significant changes from prior echo. 07/15/2021 MR abdomen with and without IV contrast: Large right pleural effusion, moderate cardiomegaly, distended inferior vena cava and hepatic veins indicative of right-sided heart failure. Scarring of spleen related to old ischemia trauma, multiple nonenhancing lesions in the left kidney identified with contrast which may be related to inflammatory or infectious process 07/16/2021: Ultrasound-guided thoracentesis Dr. Gary Reyes: 670 mL of blood-tinged cloudy fluid drained and sent for analysis Chest x-ray following: Status post right thoracentesis no evidence of hemothorax, residual blunting of right costophrenic angle. Pertinent lab summary: 07/14/2021 blood cultures x2 sites showed no growth over 5 days. Urine clean catch for Legionella and Streptococcus pneumonia both negative. Nasal swab for rapid RSV and influenza as well as SARS Covid-2 all negative. 07/22/2021 WBC 10.2-Hgb 12.1-HCT 37-PLT 338. Chemistries: NA 136-K4.3-CL 102-CO2 30-BUN 14-CRE 0.94-GLU 90 Discharge weight 59.1 kg, BMI 26.4 Hospital course: Hospital course: Noted to be hypoxic 88% on arrival, CT showed moderate right pleural effusion with compressive atelectasis. In addition patient was found to have left renal infarct as well as splenic infarcts which were considered to be embolic. Patient's INR was subtherapeutic on the arrival. Thoracentesis as above, cytology was negative for malignancy, concern possibly due to rheumatoid arthritis. Patient is to have follow-up with pulmonology and wants to transfer care to Dr. Mariee. She did develop atrial fib with rapid ventricular rate during the hospital course, which was treated temporarily with diltiazem drip, metoprolol was increased from 25 100 mg twice daily and amiodarone 200 mg twice daily was added with successful rate control. New medications: Discharge planning follow-up: Acute respiratory failure with hypoxia Acute exacerbation chronic pleural effusion Right splenic infarct Decompensated HFpEF Cystic renal mass Paroxysmal atrial fibrillation Leukocytosis Status post thoracentesis Mitral valve annular calcification, 1-2+ insufficiency stable Aortic valve diffuse calcification stable COPD Hypertension Subtherapeutic INR due to holding Coumadin for thoracentesis Medication reconciliation: Metoprolol tartrate 100 mg p.o. twice daily #60/0 Amiodarone 200 mg p.o. twice daily #60/0 Change medications: Warfarin 4 mg p.o. daily Discontinued medications: Warfarin 2 mg Metoprolol tartrate 75 mg p.o. twice daily Continue medications: Multivitamin 1 tablet daily Calcium carbonate 600 mg (1500 mg) tablet 1 p.o. daily Furosemide 40 mg p.o. twice daily Handicap placard Albuterol sulfate 90 MCG per actuation HFA inhaler: 2 puffs every 4 hours as needed shortness of breath Omeprazole 40 mg capsule daily AC Potassium chloride 20 mEq ER: 1 tablet twice daily Diltiazem 2040 mg capsule extended release 24-hour: 1 capsule daily Referral/follow-up: Dr. Flaquito Mariee pulmonology 2 weeks Hypokalemia 07/09/2021 11/08/2022 Hyponatremia 07/09/2021 11/08/2022 Hypoxemia 06/23/2021 11/08/2022 Hypoxia 06/23/2021 11/08/2022 Pleural effusion, right 05/05/202011/2022 Overview: Now seeing Dr. Mariee Thoracic aorta atherosclerosis 03/23/2020 09/23/2020 Chronic systolic heart failure 11/21/2019 09/23/2020 Fatigue 11/24/2016 10/10/2017 Atrial fibrillation 01/14/2014 10/11/19 18 Centrilobular emphysema 01/14/201411/2022 Multiple thyroid nodules 03/03/2011 Hypertension 01/19/2011 06/23/2015 Esophagitis, unspecified 01/13/200901/2018 Gastrointestinal malfunction arising from mental factors 12/09/2008 10/10/2017 Nontoxic multinodular goiter 12/08/2008 05/08/2018 Dysphagia, unspecified(787.20) 05/08/2018 documented as of this encounter (statuses as of 01/14/2023) [facility]04-17-2023 History of Past illness Narrative* Problem Noted Date Diagnosed Date Resolved Date Deviation of international n ormalized ratio (INR) from target range 09/19/2022 11/08/2022 History of surgical procedure 09/19/2022 11/08/2022 Renal infarct 04/19/2022 07/26/2022 Overview: Has seen Dr. Chaney. Needs to just follow up prn. Dehydration 02/03/2022 11/08/2022 Gram-negative bacteremia 02/03/202211/2022 Hypophosphatemia 02/03/2022 11/08/2022 Pneumonia 02/03/2022 11/08/2022 Pyothorax without fistula 02/03/2022 Pleural effusion 01/31/2022 04/19/2022 Abnormal levels of other serum enzymes 11/11/2021 11/08/2022 Elevated liver enzymes 11/11/202111/08 Neoplasm of uncertain behavior of left kidney 09/24/19 22 11/08/2022 Shortness of breath 09/16/2021 11/09/19 Acute respiratory failure 07/22/2021 Chronic passive congestion of liver 07/22/2021 11/08/2022 Cyst of kidney, acquired 07/22/202111/2022 Ischemia and infarction of kidney 07/22/2021 11/08/2022 Overview: Has seen Dr Calvin Leukocytosis 07/22/2021 11/08/2022 Encounter for support and co ordination of transition of care 07/20/2021 07/26/2022 Overview: Facility: [facility] Date of admission 07/14/2021 Date of discharge Prehospital work-up: Presented to 07/14/2021 to [facility] ED complaining of left-sided abdominal pain with multiple symptoms including cough, myalgias, nasal congestion, low dietary intake due to concerns that would aggravate stomach ache. Patient was exposed to Covid 2 weeks prior, unvaccinated. Vital signs: 98.3 P-139-58-143/102-93% RA. Exam description: Tired, alert and nontoxic, normal respiratory effort, mild tenderness left upper quadrant without rebound or guarding. WBC 20.3-Hgb 14-HCT 43-PLT 388-Ig percent 0.5-absolute neutrophil 17 point 3H Lactic acid 1.2. Sodium 131-K3.8-CL 95-CO2 29.0, glucose 133, otherwise CMP is within normal limits. Calcium 9.1. Liver panel: Total bili 1.10H-AST 180-ALT 95-ALP 126-total protein 8.3-Albumin three-point 3-5 and 50.0-lipase 74. 07/14/2021 CT abdomen pelvis: Dilated main and bilateral pulmonary arteries suggesting pulmonary hypertension, moderate volume right pleural effusion with compressive atelectasis at right lower lobe, moderate cardiomegaly with dilated right ventricle and reflux of contrast in IVC suggesting right heart dysfunction. Heterogenous enhancement and decreased density of the left kidney new since CTA on 01/03/2014- may represent renal ischemia/infarction versus pyelonephritis, neoplasm not ruled out. 2.9 superior and lateral left renal cyst with delayed peripheral nodular enhancement suspicious for cystic renal neoplasm, MRI/CT with IV contrast recommended. Splenic infarction, given left renal and splenic infarctions embolic etiology should be considered. Patient was given IV fluids due to tachycardia, patient's anticoagulants were held for thoracentesis, so there were concerns about possible pulmonary emboli, CT was therefore ordered with negative findings. Case was discussed with hospitalist and decision to admit Patient was admitted under Dr. Maddie Nascimento: Acute problem list and plan: 1. Acute hypoxic respiratory failure secondary right-sided pleural effusion with decompensated RV dysfunction, elevated leukocytosis with recent hospitalization could have concurrent pneumonia: We will check strep pneumo, Legionella antigens, flu, RSV, thoracentesis ordered with fluid studies, O2 as needed, continue aerosol, leukocytosis coverage ordered with IV antibiotics. 2. Splenic/renal infarct: Suspected to be related to subtherapeutic INR and atrial fibrillation, heparin drip was started, patient had prior complications with Xarelto, has been on Coumadin but consider trial of Eliquis as an alternative. Echocardiogram ordered. 3. Leukocytosis: Cultures were ordered, empiric antibiotics, lactic acid normal. 4. Recurrent right-sided pleural effusion: May be related to pulmonary artery hypertension, CT shows marked dilatation of central vasculature without PE, echocardiogram ordered. Started on Lasix drip. 5. Decompensated right-sided heart failure: Lasix drip started, follow BMP, sodium restriction, consider right-sided heart cath, pulmonary medicine consult. 6. Cystic renal mass: Concerning for malignancy, abdominal MRI ordered, consult urology 7. PAF: Current atrial fibrillation, heparin drip started, again echocardiogram ordered to check for embolic sources, diltiazem and metoprolol continued. 8. GERD: Continue omeprazole 9. DVT prophylaxis: Heparin drip CODE STATUS: DNR CCA without intubation 07/14/[address] Malika Jain neurologist: increasing left upper quadrant and flank pain, atypical left renal cyst. Assessment and plan: Right renal cyst, renal infarction: No plans for intervention of 3 cm suspicious lesion during this admission, felt he could be done outpatient. 07/15/2021 consultation open soaper tender Dr. Dwayne Garcia: Assessment right pleural effusion: Continue diuretic therapy, empiric antimicrobials, thoracentesis recommended, eventual right heart cath work and secondary work-up for pH outpatient basis. 07/15/2021 echocardiogram: LV size and LV SF WNL, EF 60 to 65%. RV normal size and RV SF EF. Left atrium moderately enlarged, right atrium mildly enlarged. MV: Moderate mitral annular calcification, 1-2+ MA. TV: Normal. AV: Diffuse aortic valve calcification. PV: Not well visualized. Great vessels and aortic root normal. No pericardial effusion. No significant changes from prior echo. 07/15/2021 MR abdomen with and without IV contrast: Large right pleural effusion, moderate cardiomegaly, distended inferior vena cava and hepatic veins indicative of right-sided heart failure. Scarring of spleen related to old ischemia trauma, multiple nonenhancing lesions in the left kidney identified with contrast which may be related to inflammatory or infectious process 07/16/2021: Ultrasound-guided thoracentesis Dr. Gary Reyes: 670 mL of blood-tinged cloudy fluid drained and sent for analysis Chest x-ray following: Status post right thoracentesis no evidence of hemothorax, residual blunting of right costophrenic angle. Pertinent lab summary: 07/14/2021 blood cultures x2 sites showed no growth over 5 days. Urine clean catch for Legionella and Streptococcus pneumonia both negative. Nasal swab for rapid RSV and influenza as well as SARS Covid-2 all negative. 07/22/2021 WBC 10.2-Hgb 12.1-HCT 37-PLT 338. Chemistries: NA 136-K4.3-CL 102-CO2 30-BUN 14-CRE 0.94-GLU 90 Discharge weight 59.1 kg, BMI 26.4 Hospital course: Hospital course: Noted to be hypoxic 88% on arrival, CT showed moderate right pleural effusion with compressive atelectasis. In addition patient was found to have left renal infarct as well as splenic infarcts which were considered to be embolic. Patient's INR was subtherapeutic on the arrival. Thoracentesis as above, cytology was negative for malignancy, concern possibly due to rheumatoid arthritis. Patient is to have follow-up with pulmonology and wants to transfer care to Dr. Mariee. She did develop atrial fib with rapid ventricular rate during the hospital course, which was treated temporarily with diltiazem drip, metoprolol was increased from 25 100 mg twice daily and amiodarone 200 mg twice daily was added with successful rate control. New medications: Discharge planning follow-up: Acute respiratory failure with hypoxia Acute exacerbation chronic pleural effusion Right splenic infarct Decompensated HFpEF Cystic renal mass Paroxysmal atrial fibrillation Leukocytosis Status post thoracentesis Mitral valve annular calcification, 1-2+ insufficiency stable Aortic valve diffuse calcification stable COPD Hypertension Subtherapeutic INR due to holding Coumadin for thoracentesis Medication reconciliation: Metoprolol tartrate 100 mg p.o. twice daily #60/0 Amiodarone 200 mg p.o. twice daily #60/0 Change medications: Warfarin 4 mg p.o. daily Discontinued medications: Warfarin 2 mg Metoprolol tartrate 75 mg p.o. twice daily Continue medications: Multivitamin 1 tablet daily Calcium carbonate 600 mg (1500 mg) tablet 1 p.o. daily Furosemide 40 mg p.o. twice daily Handicap placard Albuterol sulfate 90 MCG per actuation HFA inhaler: 2 puffs every 4 hours as needed shortness of breath Omeprazole 40 mg capsule daily AC Potassium chloride 20 mEq ER: 1 tablet twice daily Diltiazem 2040 mg capsule extended release 24-hour: 1 capsule daily Referral/follow-up: Dr. Flaquito Mariee pulmonology 2 weeks Hypokalemia 07/09/2021 11/08/2022 Hyponatremia 07/09/2021 11/08/2022 Hypoxemia 06/23/2021 11/08/2022 Hypoxia 06/23/2021 11/08/2022 Pleural effusion, right 05/05/20200 11/2022 Overview: Now seeing Dr. Mariee Thoracic aorta atherosclerosis 03/23/2020 09/23/2020 Chronic systolic heart failure 11/21/2019 09/23/2020 Fatigue 11/24/2016 10/10/2017 Atrial fibrillation 01/14/2014 10/11/19 Centrilobular emphysema 01/14/201411/2022 Multiple thyroid nodules 03/03/2011 Hypertension 01/19/2011 06/23/2015 Esophagitis, unspecified 01/13/200901/2018 Gastrointestinal malfunction arising from mental factors 12/09/2008 10/10/2017 Nontoxic multinodular goiter 12/08/2008 05/08/2018 Dysphagia, unspecified(787.20) 05/08/2018 documented as of this encounter (statuses as of 01/14/2023) [facility]04-17-2023 History of Past illness Narrative* Problem Noted Date Diagnosed Date Resolved Date Deviation of international n ormalized ratio (INR) from target range 09/19/2022 11/08/2022 History of surgical procedure 09/19/2022 11/08/2022 Renal infarct 04/19/2022 07/26/2022 Overview: Has seen Dr. Chaney. Needs to just follow up prn. Dehydration 02/03/2022 11/08/2022 Gram-negative bacteremia 02/03/202211/2022 Hypophosphatemia 02/03/2022 11/08/2022 Pneumonia 02/03/2022 11/08/2022 Pyothorax without fistula 02/03/2022 Pleural effusion 01/31/2022 04/19/2022 Abnormal levels of other serum enzymes 11/11/2021 11/08/2022 Elevated liver enzymes 11/11/202111/08 Neoplasm of uncertain behavior of left kidney 09/24/19 22 11/08/2022 Shortness of breath 09/16/2021 11/09/19 23 Acute respiratory failure 07/22/2021 Chronic passive congestion of liver 07/22/2021 11/08/2022 Cyst of kidney, acquired 07/22/202111/2022 Ischemia and infarction of kidney 07/22/2021 11/08/2022 Overview: Has seen Dr Calvin Leukocytosis 07/22/2021 11/08/2022 Encounter for support and co ordination of transition of care 07/20/2021 07/26/2022 Overview: Facility: [facility] Date of admission 07/14/2021 Date of discharge Prehospital work-up: Presented to 07/14/2021 to [facility] ED complaining of left-sided abdominal pain with multiple symptoms including cough, myalgias, nasal congestion, low dietary intake due to concerns that would aggravate stomach ache. Patient was exposed to Covid 2 weeks prior, unvaccinated. Vital signs: 98.3 U-996-11-143/102-93% RA. Exam description: Tired, alert and nontoxic, normal respiratory effort, mild tenderness left upper quadrant without rebound or guarding. WBC 20.3-Hgb 14-HCT 43-PLT 388-Ig percent 0.5-absolute neutrophil 17 point 3H Lactic acid 1.2. Sodium 131-K3.8-CL 95-CO2 29.0, glucose 133, otherwise CMP is within normal limits. Calcium 9.1. Liver panel: Total bili 1.10H-AST 180-ALT 95-ALP 126-total protein 8.3-Albumin three-point 3-5 and 50.0-lipase 74. 07/14/2021 CT abdomen pelvis: Dilated main and bilateral pulmonary arteries suggesting pulmonary hypertension, moderate volume right pleural effusion with compressive atelectasis at right lower lobe, moderate cardiomegaly with dilated right ventricle and reflux of contrast in IVC suggesting right heart dysfunction. Heterogenous enhancement and decreased density of the left kidney new since CTA on 01/03/2014- may represent renal ischemia/infarction versus pyelonephritis, neoplasm not ruled out. 2.9 superior and lateral left renal cyst with delayed peripheral nodular enhancement suspicious for cystic renal neoplasm, MRI/CT with IV contrast recommended. Splenic infarction, given left renal and splenic infarctions embolic etiology should be considered. Patient was given IV fluids due to tachycardia, patient's anticoagulants were held for thoracentesis, so there were concerns about possible pulmonary emboli, CT was therefore ordered with negative findings. Case was discussed with hospitalist and decision to admit Patient was admitted under Dr. Maddie Nascimento: Acute problem list and plan: 1. Acute hypoxic respiratory failure secondary right-sided pleural effusion with decompensated RV dysfunction, elevated leukocytosis with recent hospitalization could have concurrent pneumonia: We will check strep pneumo, Legionella antigens, flu, RSV, thoracentesis ordered with fluid studies, O2 as needed, continue aerosol, leukocytosis coverage ordered with IV antibiotics. 2. Splenic/renal infarct: Suspected to be related to subtherapeutic INR and atrial fibrillation, heparin drip was started, patient had prior complications with Xarelto, has been on Coumadin but consider trial of Eliquis as an alternative. Echocardiogram ordered. 3. Leukocytosis: Cultures were ordered, empiric antibiotics, lactic acid normal. 4. Recurrent right-sided pleural effusion: May be related to pulmonary artery hypertension, CT shows marked dilatation of central vasculature without PE, echocardiogram ordered. Started on Lasix drip. 5. Decompensated right-sided heart failure: Lasix drip started, follow BMP, sodium restriction, consider right-sided heart cath, pulmonary medicine consult. 6. Cystic renal mass: Concerning for malignancy, abdominal MRI ordered, consult urology 7. PAF: Current atrial fibrillation, heparin drip started, again echocardiogram ordered to check for embolic sources, diltiazem and metoprolol continued. 8. GERD: Continue omeprazole 9. DVT prophylaxis: Heparin drip CODE STATUS: DNR CCA without intubation 07/14/[address] Malika Jain neurologist: increasing left upper quadrant and flank pain, atypical left renal cyst. Assessment and plan: Right renal cyst, renal infarction: No plans for intervention of 3 cm suspicious lesion during this admission, felt he could be done outpatient. 07/15/2021 consultation open soaper tender Dr. Dwayne Garcia: Assessment right pleural effusion: Continue diuretic therapy, empiric antimicrobials, thoracentesis recommended, eventual right heart cath work and secondary work-up for pH outpatient basis. 07/15/2021 echocardiogram: LV size and LV SF WNL, EF 60 to 65%. RV normal size and RV SF EF. Left atrium moderately enlarged, right atrium mildly enlarged. MV: Moderate mitral annular calcification, 1-2+ MA. TV: Normal. AV: Diffuse aortic valve calcification. PV: Not well visualized. Great vessels and aortic root normal. No pericardial effusion. No significant changes from prior echo. 07/15/2021 MR abdomen with and without IV contrast: Large right pleural effusion, moderate cardiomegaly, distended inferior vena cava and hepatic veins indicative of right-sided heart failure. Scarring of spleen related to old ischemia trauma, multiple nonenhancing lesions in the left kidney identified with contrast which may be related to inflammatory or infectious process 07/16/2021: Ultrasound-guided thoracentesis Dr. Gary Reyes: 670 mL of blood-tinged cloudy fluid drained and sent for analysis Chest x-ray following: Status post right thoracentesis no evidence of hemothorax, residual blunting of right costophrenic angle. Pertinent lab summary: 07/14/2021 blood cultures x2 sites showed no growth over 5 days. Urine clean catch for Legionella and Streptococcus pneumonia both negative. Nasal swab for rapid RSV and influenza as well as SARS Covid-2 all negative. 07/22/2021 WBC 10.2-Hgb 12.1-HCT 37-PLT 338. Chemistries: NA 136-K4.3-CL 102-CO2 30-BUN 14-CRE 0.94-GLU 90 Discharge weight 59.1 kg, BMI 26.4 Hospital course: Hospital course: Noted to be hypoxic 88% on arrival, CT showed moderate right pleural effusion with compressive atelectasis. In addition patient was found to have left renal infarct as well as splenic infarcts which were considered to be embolic. Patient's INR was subtherapeutic on the arrival. Thoracentesis as above, cytology was negative for malignancy, concern possibly due to rheumatoid arthritis. Patient is to have follow-up with pulmonology and wants to transfer care to Dr. Mariee. She did develop atrial fib with rapid ventricular rate during the hospital course, which was treated temporarily with diltiazem drip, metoprolol was increased from 25 100 mg twice daily and amiodarone 200 mg twice daily was added with successful rate control. New medications: Discharge planning follow-up: Acute respiratory failure with hypoxia Acute exacerbation chronic pleural effusion Right splenic infarct Decompensated HFpEF Cystic renal mass Paroxysmal atrial fibrillation Leukocytosis Status post thoracentesis Mitral valve annular calcification, 1-2+ insufficiency stable Aortic valve diffuse calcification stable COPD Hypertension Subtherapeutic INR due to holding Coumadin for thoracentesis Medication reconciliation: Metoprolol tartrate 100 mg p.o. twice daily #60/0 Amiodarone 200 mg p.o. twice daily #60/0 Change medications: Warfarin 4 mg p.o. daily Discontinued medications: Warfarin 2 mg Metoprolol tartrate 75 mg p.o. twice daily Continue medications: Multivitamin 1 tablet daily Calcium carbonate 600 mg (1500 mg) tablet 1 p.o. daily Furosemide 40 mg p.o. twice daily Handicap placard Albuterol sulfate 90 MCG per actuation HFA inhaler: 2 puffs every 4 hours as needed shortness of breath Omeprazole 40 mg capsule daily AC Potassium chloride 20 mEq ER: 1 tablet twice daily Diltiazem 2040 mg capsule extended release 24-hour: 1 capsule daily Referral/follow-up: Dr. Flaquito Mariee pulmonology 2 weeks Hypokalemia 07/09/2021 11/08/2022 Hyponatremia 07/09/2021 11/08/2022 Hypoxemia 06/23/2021 11/08/2022 Hypoxia 06/23/2021 11/08/2022 Pleural effusion, right 05/05/202011/2022 Overview: Now seeing Dr. Mariee Thoracic aorta atherosclerosis 03/23/2020 09/23/2020 Chronic systolic heart failure 11/21/2019 09/23/2020 Fatigue 11/24/2016 10/10/2017 Atrial fibrillation 01/14/2014 10/11/19 18 Centrilobular emphysema 01/14/201411/2022 Multiple thyroid nodules 03/03/2011 Hypertension 01/19/2011 06/23/2015 Esophagitis, unspecified 01/13/200901/2018 Gastrointestinal malfunction arising from mental factors 12/09/2008 10/10/2017 Nontoxic multinodular goiter 12/08/2008 05/08/2018 Dysphagia, unspecified(787.20) 05/08/2018 documented as of this encounter (statuses as of 01/14/2023) [facility]04-17-2023 History of Past illness Narrative* Problem Noted Date Diagnosed Date Resolved Date Deviation of international n ormalized ratio (INR) from target range 09/19/2022 11/08/2022 History of surgical procedure 09/19/2022 11/08/2022 Renal infarct 04/19/2022 07/26/2022 Overview: Has seen Dr. Chaney. Needs to just follow up prn. Dehydration 02/03/2022 11/08/2022 Gram-negative bacteremia 02/03/202211/2022 Hypophosphatemia 02/03/2022 11/08/2022 Pneumonia 02/03/2022 11/08/2022 Pyothorax without fistula 02/03/2022 Pleural effusion 01/31/2022 04/19/2022 Abnormal levels of other serum enzymes 11/11/2021 11/08/2022 Elevated liver enzymes 11/11/202111/08 Neoplasm of uncertain behavior of left kidney 09/24/19 22 11/08/2022 Shortness of breath 09/16/2021 11/09/19 Acute respiratory failure 07/22/2021 Chronic passive congestion of liver 07/22/2021 11/08/2022 Cyst of kidney, acquired 07/22/202111/2022 Ischemia and infarction of kidney 07/22/2021 11/08/2022 Overview: Has seen Dr Calvin Leukocytosis 07/22/2021 11/08/2022 Encounter for support and co ordination of transition of care 07/20/2021 07/26/2022 Overview: Facility: [facility] Date of admission 07/14/2021 Date of discharge Prehospital work-up: Presented to 07/14/2021 to [facility] ED complaining of left-sided abdominal pain with multiple symptoms including cough, myalgias, nasal congestion, low dietary intake due to concerns that would aggravate stomach ache. Patient was exposed to Covid 2 weeks prior, unvaccinated. Vital signs: 98.3 I-[id number]/102-93% RA. Exam description: Tired, alert and nontoxic, normal respiratory effort, mild tenderness left upper quadrant without rebound or guarding. WBC 20.3-Hgb 14-HCT 43-PLT 388-Ig percent 0.5-absolute neutrophil 17 point 3H Lactic acid 1.2. Sodium 131-K3.8-CL 95-CO2 29.0, glucose 133, otherwise CMP is within normal limits. Calcium 9.1. Liver panel: Total bili 1.10H-AST 180-ALT 95-ALP 126-total protein 8.3-Albumin three-point 3-5 and 50.0-lipase 74. 07/14/2021 CT abdomen pelvis: Dilated main and bilateral pulmonary arteries suggesting pulmonary hypertension, moderate volume right pleural effusion with compressive atelectasis at right lower lobe, moderate cardiomegaly with dilated right ventricle and reflux of contrast in IVC suggesting right heart dysfunction. Heterogenous enhancement and decreased density of the left kidney new since CTA on 01/03/2014- may represent renal ischemia/infarction versus pyelonephritis, neoplasm not ruled out. 2.9 superior and lateral left renal cyst with delayed peripheral nodular enhancement suspicious for cystic renal neoplasm, MRI/CT with IV contrast recommended. Splenic infarction, given left renal and splenic infarctions embolic etiology should be considered. Patient was given IV fluids due to tachycardia, patient's anticoagulants were held for thoracentesis, so there were concerns about possible pulmonary emboli, CT was therefore ordered with negative findings. Case was discussed with hospitalist and decision to admit Patient was admitted under Dr. Maddie Nascimento: Acute problem list and plan: 1. Acute hypoxic respiratory failure secondary right-sided pleural effusion with decompensated RV dysfunction, elevated leukocytosis with recent hospitalization could have concurrent pneumonia: We will check strep pneumo, Legionella antigens, flu, RSV, thoracentesis ordered with fluid studies, O2 as needed, continue aerosol, leukocytosis coverage ordered with IV antibiotics. 2. Splenic/renal infarct: Suspected to be related to subtherapeutic INR and atrial fibrillation, heparin drip was started, patient had prior complications with Xarelto, has been on Coumadin but consider trial of Eliquis as an alternative. Echocardiogram ordered. 3. Leukocytosis: Cultures were ordered, empiric antibiotics, lactic acid normal. 4. Recurrent right-sided pleural effusion: May be related to pulmonary artery hypertension, CT shows marked dilatation of central vasculature without PE, echocardiogram ordered. Started on Lasix drip. 5. Decompensated right-sided heart failure: Lasix drip started, follow BMP, sodium restriction, consider right-sided heart cath, pulmonary medicine consult. 6. Cystic renal mass: Concerning for malignancy, abdominal MRI ordered, consult urology 7. PAF: Current atrial fibrillation, heparin drip started, again echocardiogram ordered to check for embolic sources, diltiazem and metoprolol continued. 8. GERD: Continue omeprazole 9. DVT prophylaxis: Heparin drip CODE STATUS: DNR CCA without intubation 07/14/[address] Malika Jain neurologist: increasing left upper quadrant and flank pain, atypical left renal cyst. Assessment and plan: Right renal cyst, renal infarction: No plans for intervention of 3 cm suspicious lesion during this admission, felt he could be done outpatient. 07/15/2021 consultation open soaper tender Dr. Dwayne Garcia: Assessment right pleural effusion: Continue diuretic therapy, empiric antimicrobials, thoracentesis recommended, eventual right heart cath work and secondary work-up for pH outpatient basis. 07/15/2021 echocardiogram: LV size and LV SF WNL, EF 60 to 65%. RV normal size and RV SF EF. Left atrium moderately enlarged, right atrium mildly enlarged. MV: Moderate mitral annular calcification, 1-2+ MA. TV: Normal. AV: Diffuse aortic valve calcification. PV: Not well visualized. Great vessels and aortic root normal. No pericardial effusion. No significant changes from prior echo. 07/15/2021 MR abdomen with and without IV contrast: Large right pleural effusion, moderate cardiomegaly, distended inferior vena cava and hepatic veins indicative of right-sided heart failure. Scarring of spleen related to old ischemia trauma, multiple nonenhancing lesions in the left kidney identified with contrast which may be related to inflammatory or infectious process 07/16/2021: Ultrasound-guided thoracentesis Dr. Gary Reyes: 670 mL of blood-tinged cloudy fluid drained and sent for analysis Chest x-ray following: Status post right thoracentesis no evidence of hemothorax, residual blunting of right costophrenic angle. Pertinent lab summary: 07/14/2021 blood cultures x2 sites showed no growth over 5 days. Urine clean catch for Legionella and Streptococcus pneumonia both negative. Nasal swab for rapid RSV and influenza as well as SARS Covid-2 all negative. 07/22/2021 WBC 10.2-Hgb 12.1-HCT 37-PLT 338. Chemistries: NA 136-K4.3-CL 102-CO2 30-BUN 14-CRE 0.94-GLU 90 Discharge weight 59.1 kg, BMI 26.4 Hospital course: Hospital course: Noted to be hypoxic 88% on arrival, CT showed moderate right pleural effusion with compressive atelectasis. In addition patient was found to have left renal infarct as well as splenic infarcts which were considered to be embolic. Patient's INR was subtherapeutic on the arrival. Thoracentesis as above, cytology was negative for malignancy, concern possibly due to rheumatoid arthritis. Patient is to have follow-up with pulmonology and wants to transfer care to Dr. Mariee. She did develop atrial fib with rapid ventricular rate during the hospital course, which was treated temporarily with diltiazem drip, metoprolol was increased from 25 100 mg twice daily and amiodarone 200 mg twice daily was added with successful rate control. New medications: Discharge planning follow-up: Acute respiratory failure with hypoxia Acute exacerbation chronic pleural effusion Right splenic infarct Decompensated HFpEF Cystic renal mass Paroxysmal atrial fibrillation Leukocytosis Status post thoracentesis Mitral valve annular calcification, 1-2+ insufficiency stable Aortic valve diffuse calcification stable COPD Hypertension Subtherapeutic INR due to holding Coumadin for thoracentesis Medication reconciliation: Metoprolol tartrate 100 mg p.o. twice daily #60/0 Amiodarone 200 mg p.o. twice daily #60/0 Change medications: Warfarin 4 mg p.o. daily Discontinued medications: Warfarin 2 mg Metoprolol tartrate 75 mg p.o. twice daily Continue medications: Multivitamin 1 tablet daily Calcium carbonate 600 mg (1500 mg) tablet 1 p.o. daily Furosemide 40 mg p.o. twice daily Handicap placard Albuterol sulfate 90 MCG per actuation HFA inhaler: 2 puffs every 4 hours as needed shortness of breath Omeprazole 40 mg capsule daily AC Potassium chloride 20 mEq ER: 1 tablet twice daily Diltiazem 2040 mg capsule extended release 24-hour: 1 capsule daily Referral/follow-up: Dr. Flaquito Mariee pulmonology 2 weeks Hypokalemia 07/09/2021 11/08/2022 Hyponatremia 07/09/2021 11/08/2022 Hypoxemia 06/23/2021 11/08/2022 Hypoxia 06/23/2021 11/08/2022 Pleural effusion, right 05/05/20200 11/2022 Overview: Now seeing Dr. Mariee Thoracic aorta atherosclerosis 03/23/2020 09/23/2020 Chronic systolic heart failure 11/21/2019 09/23/2020 Fatigue 11/24/2016 10/10/2017 Atrial fibrillation 01/14/2014 10/11/19 Centrilobular emphysema 01/14/201411/2022 Multiple thyroid nodules 03/03/2011 Hypertension 01/19/2011 06/23/2015 Esophagitis, unspecified 01/13/200901/2018 Gastrointestinal malfunction arising from mental factors 12/09/2008 10/10/2017 Nontoxic multinodular goiter 12/08/2008 05/08/2018 Dysphagia, unspecified(787.20) 05/08/2018 documented as of this encounter (statuses as of 01/16/2023) [facility]04-17-2023 History of Past illness Narrative* Problem Noted Date Diagnosed Date Resolved Date Deviation of international n ormalized ratio (INR) from target range 09/19/2022 11/08/2022 History of surgical procedure 09/19/2022 11/08/2022 Renal infarct 04/19/2022 07/26/2022 Overview: Has seen Dr. Chaney. Needs to just follow up prn. Dehydration 02/03/2022 11/08/2022 Gram-negative bacteremia 02/03/202211/2022 Hypophosphatemia 02/03/2022 11/08/2022 Pneumonia 02/03/2022 11/08/2022 Pyothorax without fistula 02/03/2022 Pleural effusion 01/31/2022 04/19/2022 Abnormal levels of other serum enzymes 11/11/2021 11/08/2022 Elevated liver enzymes 11/11/202111/08 Neoplasm of uncertain behavior of left kidney 09/24/19 22 11/08/2022 Shortness of breath 09/16/2021 11/09/19 23 Acute respiratory failure 07/22/2021 Chronic passive congestion of liver 07/22/2021 11/08/2022 Cyst of kidney, acquired 07/22/202111/2022 Ischemia and infarction of kidney 07/22/2021 11/08/2022 Overview: Has seen Dr Calvin Leukocytosis 07/22/2021 11/08/2022 Encounter for support and co ordination of transition of care 07/20/2021 07/26/2022 Overview: Facility: [facility] Date of admission 07/14/2021 Date of discharge Prehospital work-up: Presented to 07/14/2021 to [facility] ED complaining of left-sided abdominal pain with multiple symptoms including cough, myalgias, nasal congestion, low dietary intake due to concerns that would aggravate stomach ache. Patient was exposed to Covid 2 weeks prior, unvaccinated. Vital signs: 98.3 Q-114-77-143/102-93% RA. Exam description: Tired, alert and nontoxic, normal respiratory effort, mild tenderness left upper quadrant without rebound or guarding. WBC 20.3-Hgb 14-HCT 43-PLT 388-Ig percent 0.5-absolute neutrophil 17 point 3H Lactic acid 1.2. Sodium 131-K3.8-CL 95-CO2 29.0, glucose 133, otherwise CMP is within normal limits. Calcium 9.1. Liver panel: Total bili 1.10H-AST 180-ALT 95-ALP 126-total protein 8.3-Albumin three-point 3-5 and 50.0-lipase 74. 07/14/2021 CT abdomen pelvis: Dilated main and bilateral pulmonary arteries suggesting pulmonary hypertension, moderate volume right pleural effusion with compressive atelectasis at right lower lobe, moderate cardiomegaly with dilated right ventricle and reflux of contrast in IVC suggesting right heart dysfunction. Heterogenous enhancement and decreased density of the left kidney new since CTA on 01/03/2014- may represent renal ischemia/infarction versus pyelonephritis, neoplasm not ruled out. 2.9 superior and lateral left renal cyst with delayed peripheral nodular enhancement suspicious for cystic renal neoplasm, MRI/CT with IV contrast recommended. Splenic infarction, given left renal and splenic infarctions embolic etiology should be considered. Patient was given IV fluids due to tachycardia, patient's anticoagulants were held for thoracentesis, so there were concerns about possible pulmonary emboli, CT was therefore ordered with negative findings. Case was discussed with hospitalist and decision to admit Patient was admitted under Dr. Maddie Nascimento: Acute problem list and plan: 1. Acute hypoxic respiratory failure secondary right-sided pleural effusion with decompensated RV dysfunction, elevated leukocytosis with recent hospitalization could have concurrent pneumonia: We will check strep pneumo, Legionella antigens, flu, RSV, thoracentesis ordered with fluid studies, O2 as needed, continue aerosol, leukocytosis coverage ordered with IV antibiotics. 2. Splenic/renal infarct: Suspected to be related to subtherapeutic INR and atrial fibrillation, heparin drip was started, patient had prior complications with Xarelto, has been on Coumadin but consider trial of Eliquis as an alternative. Echocardiogram ordered. 3. Leukocytosis: Cultures were ordered, empiric antibiotics, lactic acid normal. 4. Recurrent right-sided pleural effusion: May be related to pulmonary artery hypertension, CT shows marked dilatation of central vasculature without PE, echocardiogram ordered. Started on Lasix drip. 5. Decompensated right-sided heart failure: Lasix drip started, follow BMP, sodium restriction, consider right-sided heart cath, pulmonary medicine consult. 6. Cystic renal mass: Concerning for malignancy, abdominal MRI ordered, consult urology 7. PAF: Current atrial fibrillation, heparin drip started, again echocardiogram ordered to check for embolic sources, diltiazem and metoprolol continued. 8. GERD: Continue omeprazole 9. DVT prophylaxis: Heparin drip CODE STATUS: DNR CCA without intubation 07/14/[address] Malika Jain neurologist: increasing left upper quadrant and flank pain, atypical left renal cyst. Assessment and plan: Right renal cyst, renal infarction: No plans for intervention of 3 cm suspicious lesion during this admission, felt he could be done outpatient. 07/15/2021 consultation open soaper tender Dr. Dwayne Garcia: Assessment right pleural effusion: Continue diuretic therapy, empiric antimicrobials, thoracentesis recommended, eventual right heart cath work and secondary work-up for pH outpatient basis. 07/15/2021 echocardiogram: LV size and LV SF WNL, EF 60 to 65%. RV normal size and RV SF EF. Left atrium moderately enlarged, right atrium mildly enlarged. MV: Moderate mitral annular calcification, 1-2+ MA. TV: Normal. AV: Diffuse aortic valve calcification. PV: Not well visualized. Great vessels and aortic root normal. No pericardial effusion. No significant changes from prior echo. 07/15/2021 MR abdomen with and without IV contrast: Large right pleural effusion, moderate cardiomegaly, distended inferior vena cava and hepatic veins indicative of right-sided heart failure. Scarring of spleen related to old ischemia trauma, multiple nonenhancing lesions in the left kidney identified with contrast which may be related to inflammatory or infectious process 07/16/2021: Ultrasound-guided thoracentesis Dr. Gary Reyes: 670 mL of blood-tinged cloudy fluid drained and sent for analysis Chest x-ray following: Status post right thoracentesis no evidence of hemothorax, residual blunting of right costophrenic angle. Pertinent lab summary: 07/14/2021 blood cultures x2 sites showed no growth over 5 days. Urine clean catch for Legionella and Streptococcus pneumonia both negative. Nasal swab for rapid RSV and influenza as well as SARS Covid-2 all negative. 07/22/2021 WBC 10.2-Hgb 12.1-HCT 37-PLT 338. Chemistries: NA 136-K4.3-CL 102-CO2 30-BUN 14-CRE 0.94-GLU 90 Discharge weight 59.1 kg, BMI 26.4 Hospital course: Hospital course: Noted to be hypoxic 88% on arrival, CT showed moderate right pleural effusion with compressive atelectasis. In addition patient was found to have left renal infarct as well as splenic infarcts which were considered to be embolic. Patient's INR was subtherapeutic on the arrival. Thoracentesis as above, cytology was negative for malignancy, concern possibly due to rheumatoid arthritis. Patient is to have follow-up with pulmonology and wants to transfer care to Dr. Mariee. She did develop atrial fib with rapid ventricular rate during the hospital course, which was treated temporarily with diltiazem drip, metoprolol was increased from 25 100 mg twice daily and amiodarone 200 mg twice daily was added with successful rate control. New medications: Discharge planning follow-up: Acute respiratory failure with hypoxia Acute exacerbation chronic pleural effusion Right splenic infarct Decompensated HFpEF Cystic renal mass Paroxysmal atrial fibrillation Leukocytosis Status post thoracentesis Mitral valve annular calcification, 1-2+ insufficiency stable Aortic valve diffuse calcification stable COPD Hypertension Subtherapeutic INR due to holding Coumadin for thoracentesis Medication reconciliation: Metoprolol tartrate 100 mg p.o. twice daily #60/0 Amiodarone 200 mg p.o. twice daily #60/0 Change medications: Warfarin 4 mg p.o. daily Discontinued medications: Warfarin 2 mg Metoprolol tartrate 75 mg p.o. twice daily Continue medications: Multivitamin 1 tablet daily Calcium carbonate 600 mg (1500 mg) tablet 1 p.o. daily Furosemide 40 mg p.o. twice daily Handicap placard Albuterol sulfate 90 MCG per actuation HFA inhaler: 2 puffs every 4 hours as needed shortness of breath Omeprazole 40 mg capsule daily AC Potassium chloride 20 mEq ER: 1 tablet twice daily Diltiazem 2040 mg capsule extended release 24-hour: 1 capsule daily Referral/follow-up: Dr. Flaquito Mariee pulmonology 2 weeks Hypokalemia 07/09/2021 11/08/2022 Hyponatremia 07/09/2021 11/08/2022 Hypoxemia 06/23/2021 11/08/2022 Hypoxia 06/23/2021 11/08/2022 Pleural effusion, right 05/05/202011/2022 Overview: Now seeing Dr. Mariee Thoracic aorta atherosclerosis 03/23/2020 09/23/2020 Chronic systolic heart failure 11/21/2019 09/23/2020 Fatigue 11/24/2016 10/10/2017 Atrial fibrillation 01/14/2014 10/11/19 18 Centrilobular emphysema 01/14/201411/2022 Multiple thyroid nodules 03/03/2011 Hypertension 01/19/2011 06/23/2015 Esophagitis, unspecified 01/13/200901/2018 Gastrointestinal malfunction arising from mental factors 12/09/2008 10/10/2017 Nontoxic multinodular goiter 12/08/2008 05/08/2018 Dysphagia, unspecified(787.20) 05/08/2018 documented as of this encounter (statuses as of 01/18/2023) [facility]04-17-2023 History of Past illness Narrative* Problem Noted Date Diagnosed Date Resolved Date Deviation of international n ormalized ratio (INR) from target range 09/19/2022 11/08/2022 History of surgical procedure 09/19/2022 11/08/2022 Renal infarct 04/19/2022 07/26/2022 Overview: Has seen Dr. Chaney. Needs to just follow up prn. Dehydration 02/03/2022 11/08/2022 Gram-negative bacteremia 02/03/202211/2022 Hypophosphatemia 02/03/2022 11/08/2022 Pneumonia 02/03/2022 11/08/2022 Pyothorax without fistula 02/03/2022 Pleural effusion 01/31/2022 04/19/2022 Abnormal levels of other serum enzymes 11/11/2021 11/08/2022 Elevated liver enzymes 11/11/202111/08 Neoplasm of uncertain behavior of left kidney 09/24/19 22 11/08/2022 Shortness of breath 09/16/2021 11/09/19 Acute respiratory failure 07/22/2021 Chronic passive congestion of liver 07/22/2021 11/08/2022 Cyst of kidney, acquired 07/22/202111/2022 Ischemia and infarction of kidney 07/22/2021 11/08/2022 Overview: Has seen Dr Calvin Leukocytosis 07/22/2021 11/08/2022 Encounter for support and co ordination of transition of care 07/20/2021 07/26/2022 Overview: Facility: [facility] Date of admission 07/14/2021 Date of discharge Prehospital work-up: Presented to 07/14/2021 to [facility] ED complaining of left-sided abdominal pain with multiple symptoms including cough, myalgias, nasal congestion, low dietary intake due to concerns that would aggravate stomach ache. Patient was exposed to Covid 2 weeks prior, unvaccinated. Vital signs: 98.3 [id number]/102-93% RA. Exam description: Tired, alert and nontoxic, normal respiratory effort, mild tenderness left upper quadrant without rebound or guarding. WBC 20.3-Hgb 14-HCT 43-PLT 388-Ig percent 0.5-absolute neutrophil 17 point 3H Lactic acid 1.2. Sodium 131-K3.8-CL 95-CO2 29.0, glucose 133, otherwise CMP is within normal limits. Calcium 9.1. Liver panel: Total bili 1.10H-AST 180-ALT 95-ALP 126-total protein 8.3-Albumin three-point 3-5 and 50.0-lipase 74. 07/14/2021 CT abdomen pelvis: Dilated main and bilateral pulmonary arteries suggesting pulmonary hypertension, moderate volume right pleural effusion with compressive atelectasis at right lower lobe, moderate cardiomegaly with dilated right ventricle and reflux of contrast in IVC suggesting right heart dysfunction. Heterogenous enhancement and decreased density of the left kidney new since CTA on 01/03/2014- may represent renal ischemia/infarction versus pyelonephritis, neoplasm not ruled out. 2.9 superior and lateral left renal cyst with delayed peripheral nodular enhancement suspicious for cystic renal neoplasm, MRI/CT with IV contrast recommended. Splenic infarction, given left renal and splenic infarctions embolic etiology should be considered. Patient was given IV fluids due to tachycardia, patient's anticoagulants were held for thoracentesis, so there were concerns about possible pulmonary emboli, CT was therefore ordered with negative findings. Case was discussed with hospitalist and decision to admit Patient was admitted under Dr. Maddie Nascimento: Acute problem list and plan: 1. Acute hypoxic respiratory failure secondary right-sided pleural effusion with decompensated RV dysfunction, elevated leukocytosis with recent hospitalization could have concurrent pneumonia: We will check strep pneumo, Legionella antigens, flu, RSV, thoracentesis ordered with fluid studies, O2 as needed, continue aerosol, leukocytosis coverage ordered with IV antibiotics. 2. Splenic/renal infarct: Suspected to be related to subtherapeutic INR and atrial fibrillation, heparin drip was started, patient had prior complications with Xarelto, has been on Coumadin but consider trial of Eliquis as an alternative. Echocardiogram ordered. 3. Leukocytosis: Cultures were ordered, empiric antibiotics, lactic acid normal. 4. Recurrent right-sided pleural effusion: May be related to pulmonary artery hypertension, CT shows marked dilatation of central vasculature without PE, echocardiogram ordered. Started on Lasix drip. 5. Decompensated right-sided heart failure: Lasix drip started, follow BMP, sodium restriction, consider right-sided heart cath, pulmonary medicine consult. 6. Cystic renal mass: Concerning for malignancy, abdominal MRI ordered, consult urology 7. PAF: Current atrial fibrillation, heparin drip started, again echocardiogram ordered to check for embolic sources, diltiazem and metoprolol continued. 8. GERD: Continue omeprazole 9. DVT prophylaxis: Heparin drip CODE STATUS: DNR CCA without intubation 07/14/[address] Malika Jain neurologist: increasing left upper quadrant and flank pain, atypical left renal cyst. Assessment and plan: Right renal cyst, renal infarction: No plans for intervention of 3 cm suspicious lesion during this admission, felt he could be done outpatient. 07/15/2021 consultation open soaper tender Dr. Dwayne Garcia: Assessment right pleural effusion: Continue diuretic therapy, empiric antimicrobials, thoracentesis recommended, eventual right heart cath work and secondary work-up for pH outpatient basis. 07/15/2021 echocardiogram: LV size and LV SF WNL, EF 60 to 65%. RV normal size and RV SF EF. Left atrium moderately enlarged, right atrium mildly enlarged. MV: Moderate mitral annular calcification, 1-2+ MA. TV: Normal. AV: Diffuse aortic valve calcification. PV: Not well visualized. Great vessels and aortic root normal. No pericardial effusion. No significant changes from prior echo. 07/15/2021 MR abdomen with and without IV contrast: Large right pleural effusion, moderate cardiomegaly, distended inferior vena cava and hepatic veins indicative of right-sided heart failure. Scarring of spleen related to old ischemia trauma, multiple nonenhancing lesions in the left kidney identified with contrast which may be related to inflammatory or infectious process 07/16/2021: Ultrasound-guided thoracentesis Dr. Gary Reyes: 670 mL of blood-tinged cloudy fluid drained and sent for analysis Chest x-ray following: Status post right thoracentesis no evidence of hemothorax, residual blunting of right costophrenic angle. Pertinent lab summary: 07/14/2021 blood cultures x2 sites showed no growth over 5 days. Urine clean catch for Legionella and Streptococcus pneumonia both negative. Nasal swab for rapid RSV and influenza as well as SARS Covid-2 all negative. 07/22/2021 WBC 10.2-Hgb 12.1-HCT 37-PLT 338. Chemistries: NA 136-K4.3-CL 102-CO2 30-BUN 14-CRE 0.94-GLU 90 Discharge weight 59.1 kg, BMI 26.4 Hospital course: Hospital course: Noted to be hypoxic 88% on arrival, CT showed moderate right pleural effusion with compressive atelectasis. In addition patient was found to have left renal infarct as well as splenic infarcts which were considered to be embolic. Patient's INR was subtherapeutic on the arrival. Thoracentesis as above, cytology was negative for malignancy, concern possibly due to rheumatoid arthritis. Patient is to have follow-up with pulmonology and wants to transfer care to Dr. Mariee. She did develop atrial fib with rapid ventricular rate during the hospital course, which was treated temporarily with diltiazem drip, metoprolol was increased from 25 100 mg twice daily and amiodarone 200 mg twice daily was added with successful rate control. New medications: Discharge planning follow-up: Acute respiratory failure with hypoxia Acute exacerbation chronic pleural effusion Right splenic infarct Decompensated HFpEF Cystic renal mass Paroxysmal atrial fibrillation Leukocytosis Status post thoracentesis Mitral valve annular calcification, 1-2+ insufficiency stable Aortic valve diffuse calcification stable COPD Hypertension Subtherapeutic INR due to holding Coumadin for thoracentesis Medication reconciliation: Metoprolol tartrate 100 mg p.o. twice daily #60/0 Amiodarone 200 mg p.o. twice daily #60/0 Change medications: Warfarin 4 mg p.o. daily Discontinued medications: Warfarin 2 mg Metoprolol tartrate 75 mg p.o. twice daily Continue medications: Multivitamin 1 tablet daily Calcium carbonate 600 mg (1500 mg) tablet 1 p.o. daily Furosemide 40 mg p.o. twice daily Handicap placard Albuterol sulfate 90 MCG per actuation HFA inhaler: 2 puffs every 4 hours as needed shortness of breath Omeprazole 40 mg capsule daily AC Potassium chloride 20 mEq ER: 1 tablet twice daily Diltiazem 2040 mg capsule extended release 24-hour: 1 capsule daily Referral/follow-up: Dr. Flaquito Mariee pulmonology 2 weeks Hypokalemia 07/09/2021 11/08/2022 Hyponatremia 07/09/2021 11/08/2022 Hypoxemia 06/23/2021 11/08/2022 Hypoxia 06/23/2021 11/08/2022 Pleural effusion, right 05/05/20200 11/2022 Overview: Now seeing Dr. Mariee Thoracic aorta atherosclerosis 03/23/2020 09/23/2020 Chronic systolic heart failure 11/21/2019 09/23/2020 Fatigue 11/24/2016 10/10/2017 Atrial fibrillation 01/14/2014 10/11/19 Centrilobular emphysema 01/14/201411/2022 Multiple thyroid nodules 03/03/2011 Hypertension 01/19/2011 06/23/2015 Esophagitis, unspecified 01/13/200901/2018 Gastrointestinal malfunction arising from mental factors 12/09/2008 10/10/2017 Nontoxic multinodular goiter 12/08/2008 05/08/2018 Dysphagia, unspecified(787.20) 05/08/2018 documented as of this encounter (statuses as of 01/20/2023) [facility]04-17-2023 History of Past illness Narrative* Problem Noted Date Diagnosed Date Resolved Date Deviation of international n ormalized ratio (INR) from target range 09/19/2022 11/08/2022 History of surgical procedure 09/19/2022 11/08/2022 Renal infarct 04/19/2022 07/26/2022 Overview: Has seen Dr. Chaney. Needs to just follow up prn. Dehydration 02/03/2022 11/08/2022 Gram-negative bacteremia 02/03/202211/2022 Hypophosphatemia 02/03/2022 11/08/2022 Pneumonia 02/03/2022 11/08/2022 Pyothorax without fistula 02/03/2022 Pleural effusion 01/31/2022 04/19/2022 Abnormal levels of other serum enzymes 11/11/2021 11/08/2022 Elevated liver enzymes 11/11/202111/08 Neoplasm of uncertain behavior of left kidney 09/24/19 22 11/08/2022 Shortness of breath 09/16/2021 11/09/19 23 Acute respiratory failure 07/22/2021 Chronic passive congestion of liver 07/22/2021 11/08/2022 Cyst of kidney, acquired 07/22/202111/2022 Ischemia and infarction of kidney 07/22/2021 11/08/2022 Overview: Has seen Dr Calvni Leukocytosis 07/22/2021 11/08/2022 Encounter for support and co ordination of transition of care 07/20/2021 07/26/2022 Overview: Facility: [facility] Date of admission 07/14/2021 Date of discharge Prehospital work-up: Presented to 07/14/2021 to [facility] ED complaining of left-sided abdominal pain with multiple symptoms including cough, myalgias, nasal congestion, low dietary intake due to concerns that would aggravate stomach ache. Patient was exposed to Covid 2 weeks prior, unvaccinated. Vital signs: 98.3 W-[id number]/102-93% RA. Exam description: Tired, alert and nontoxic, normal respiratory effort, mild tenderness left upper quadrant without rebound or guarding. WBC 20.3-Hgb 14-HCT 43-PLT 388-Ig percent 0.5-absolute neutrophil 17 point 3H Lactic acid 1.2. Sodium 131-K3.8-CL 95-CO2 29.0, glucose 133, otherwise CMP is within normal limits. Calcium 9.1. Liver panel: Total bili 1.10H-AST 180-ALT 95-ALP 126-total protein 8.3-Albumin three-point 3-5 and 50.0-lipase 74. 07/14/2021 CT abdomen pelvis: Dilated main and bilateral pulmonary arteries suggesting pulmonary hypertension, moderate volume right pleural effusion with compressive atelectasis at right lower lobe, moderate cardiomegaly with dilated right ventricle and reflux of contrast in IVC suggesting right heart dysfunction. Heterogenous enhancement and decreased density of the left kidney new since CTA on 01/03/2014- may represent renal ischemia/infarction versus pyelonephritis, neoplasm not ruled out. 2.9 superior and lateral left renal cyst with delayed peripheral nodular enhancement suspicious for cystic renal neoplasm, MRI/CT with IV contrast recommended. Splenic infarction, given left renal and splenic infarctions embolic etiology should be considered. Patient was given IV fluids due to tachycardia, patient's anticoagulants were held for thoracentesis, so there were concerns about possible pulmonary emboli, CT was therefore ordered with negative findings. Case was discussed with hospitalist and decision to admit Patient was admitted under Dr. Maddie Nascimento: Acute problem list and plan: 1. Acute hypoxic respiratory failure secondary right-sided pleural effusion with decompensated RV dysfunction, elevated leukocytosis with recent hospitalization could have concurrent pneumonia: We will check strep pneumo, Legionella antigens, flu, RSV, thoracentesis ordered with fluid studies, O2 as needed, continue aerosol, leukocytosis coverage ordered with IV antibiotics. 2. Splenic/renal infarct: Suspected to be related to subtherapeutic INR and atrial fibrillation, heparin drip was started, patient had prior complications with Xarelto, has been on Coumadin but consider trial of Eliquis as an alternative. Echocardiogram ordered. 3. Leukocytosis: Cultures were ordered, empiric antibiotics, lactic acid normal. 4. Recurrent right-sided pleural effusion: May be related to pulmonary artery hypertension, CT shows marked dilatation of central vasculature without PE, echocardiogram ordered. Started on Lasix drip. 5. Decompensated right-sided heart failure: Lasix drip started, follow BMP, sodium restriction, consider right-sided heart cath, pulmonary medicine consult. 6. Cystic renal mass: Concerning for malignancy, abdominal MRI ordered, consult urology 7. PAF: Current atrial fibrillation, heparin drip started, again echocardiogram ordered to check for embolic sources, diltiazem and metoprolol continued. 8. GERD: Continue omeprazole 9. DVT prophylaxis: Heparin drip CODE STATUS: DNR CCA without intubation 07/14/[address] Malika Jain neurologist: increasing left upper quadrant and flank pain, atypical left renal cyst. Assessment and plan: Right renal cyst, renal infarction: No plans for intervention of 3 cm suspicious lesion during this admission, felt he could be done outpatient. 07/15/2021 consultation open soaper tender Dr. Dwayne Garcia: Assessment right pleural effusion: Continue diuretic therapy, empiric antimicrobials, thoracentesis recommended, eventual right heart cath work and secondary work-up for pH outpatient basis. 07/15/2021 echocardiogram: LV size and LV SF WNL, EF 60 to 65%. RV normal size and RV SF EF. Left atrium moderately enlarged, right atrium mildly enlarged. MV: Moderate mitral annular calcification, 1-2+ MA. TV: Normal. AV: Diffuse aortic valve calcification. PV: Not well visualized. Great vessels and aortic root normal. No pericardial effusion. No significant changes from prior echo. 07/15/2021 MR abdomen with and without IV contrast: Large right pleural effusion, moderate cardiomegaly, distended inferior vena cava and hepatic veins indicative of right-sided heart failure. Scarring of spleen related to old ischemia trauma, multiple nonenhancing lesions in the left kidney identified with contrast which may be related to inflammatory or infectious process 07/16/2021: Ultrasound-guided thoracentesis Dr. Gary Reyes: 670 mL of blood-tinged cloudy fluid drained and sent for analysis Chest x-ray following: Status post right thoracentesis no evidence of hemothorax, residual blunting of right costophrenic angle. Pertinent lab summary: 07/14/2021 blood cultures x2 sites showed no growth over 5 days. Urine clean catch for Legionella and Streptococcus pneumonia both negative. Nasal swab for rapid RSV and influenza as well as SARS Covid-2 all negative. 07/22/2021 WBC 10.2-Hgb 12.1-HCT 37-PLT 338. Chemistries: NA 136-K4.3-CL 102-CO2 30-BUN 14-CRE 0.94-GLU 90 Discharge weight 59.1 kg, BMI 26.4 Hospital course: Hospital course: Noted to be hypoxic 88% on arrival, CT showed moderate right pleural effusion with compressive atelectasis. In addition patient was found to have left renal infarct as well as splenic infarcts which were considered to be embolic. Patient's INR was subtherapeutic on the arrival. Thoracentesis as above, cytology was negative for malignancy, concern possibly due to rheumatoid arthritis. Patient is to have follow-up with pulmonology and wants to transfer care to Dr. Mariee. She did develop atrial fib with rapid ventricular rate during the hospital course, which was treated temporarily with diltiazem drip, metoprolol was increased from 25 100 mg twice daily and amiodarone 200 mg twice daily was added with successful rate control. New medications: Discharge planning follow-up: Acute respiratory failure with hypoxia Acute exacerbation chronic pleural effusion Right splenic infarct Decompensated HFpEF Cystic renal mass Paroxysmal atrial fibrillation Leukocytosis Status post thoracentesis Mitral valve annular calcification, 1-2+ insufficiency stable Aortic valve diffuse calcification stable COPD Hypertension Subtherapeutic INR due to holding Coumadin for thoracentesis Medication reconciliation: Metoprolol tartrate 100 mg p.o. twice daily #60/0 Amiodarone 200 mg p.o. twice daily #60/0 Change medications: Warfarin 4 mg p.o. daily Discontinued medications: Warfarin 2 mg Metoprolol tartrate 75 mg p.o. twice daily Continue medications: Multivitamin 1 tablet daily Calcium carbonate 600 mg (1500 mg) tablet 1 p.o. daily Furosemide 40 mg p.o. twice daily Handicap placard Albuterol sulfate 90 MCG per actuation HFA inhaler: 2 puffs every 4 hours as needed shortness of breath Omeprazole 40 mg capsule daily AC Potassium chloride 20 mEq ER: 1 tablet twice daily Diltiazem 2040 mg capsule extended release 24-hour: 1 capsule daily Referral/follow-up: Dr. Flaquito Mariee pulmonology 2 weeks Hypokalemia 07/09/2021 11/08/2022 Hyponatremia 07/09/2021 11/08/2022 Hypoxemia 06/23/2021 11/08/2022 Hypoxia 06/23/2021 11/08/2022 Pleural effusion, right 05/05/202011/2022 Overview: Now seeing Dr. Mariee Thoracic aorta atherosclerosis 03/23/2020 09/23/2020 Chronic systolic heart failure 11/21/2019 09/23/2020 Fatigue 11/24/2016 10/10/2017 Atrial fibrillation 01/14/2014 10/11/19 18 Centrilobular emphysema 01/14/201411/2022 Multiple thyroid nodules 03/03/2011 Hypertension 01/19/2011 06/23/2015 Esophagitis, unspecified 01/13/200901/2018 Gastrointestinal malfunction arising from mental factors 12/09/2008 10/10/2017 Nontoxic multinodular goiter 12/08/2008 05/08/2018 Dysphagia, unspecified(787.20) 05/08/2018 documented as of this encounter (statuses as of 01/23/2023) [facility]04-17-2023 History of Past illness Narrative* Problem Noted Date Diagnosed Date Resolved Date Deviation of international n ormalized ratio (INR) from target range 09/19/2022 11/08/2022 History of surgical procedure 09/19/2022 11/08/2022 Renal infarct 04/19/2022 07/26/2022 Overview: Has seen Dr. Chaney. Needs to just follow up prn. Dehydration 02/03/2022 11/08/2022 Gram-negative bacteremia 02/03/202211/2022 Hypophosphatemia 02/03/2022 11/08/2022 Pneumonia 02/03/2022 11/08/2022 Pyothorax without fistula 02/03/2022 Pleural effusion 01/31/2022 04/19/2022 Abnormal levels of other serum enzymes 11/11/2021 11/08/2022 Elevated liver enzymes 11/11/202111/08 Neoplasm of uncertain behavior of left kidney 09/24/19 22 11/08/2022 Shortness of breath 09/16/2021 11/09/19 Acute respiratory failure 07/22/2021 Chronic passive congestion of liver 07/22/2021 11/08/2022 Cyst of kidney, acquired 07/22/202111/2022 Ischemia and infarction of kidney 07/22/2021 11/08/2022 Overview: Has seen Dr Calvin Leukocytosis 07/22/2021 11/08/2022 Encounter for support and co ordination of transition of care 07/20/2021 07/26/2022 Overview: Facility: [facility] Date of admission 07/14/2021 Date of discharge Prehospital work-up: Presented to 07/14/2021 to [facility] ED complaining of left-sided abdominal pain with multiple symptoms including cough, myalgias, nasal congestion, low dietary intake due to concerns that would aggravate stomach ache. Patient was exposed to Covid 2 weeks prior, unvaccinated. Vital signs: 98.3 E-386-37-143/102-93% RA. Exam description: Tired, alert and nontoxic, normal respiratory effort, mild tenderness left upper quadrant without rebound or guarding. WBC 20.3-Hgb 14-HCT 43-PLT 388-Ig percent 0.5-absolute neutrophil 17 point 3H Lactic acid 1.2. Sodium 131-K3.8-CL 95-CO2 29.0, glucose 133, otherwise CMP is within normal limits. Calcium 9.1. Liver panel: Total bili 1.10H-AST 180-ALT 95-ALP 126-total protein 8.3-Albumin three-point 3-5 and 50.0-lipase 74. 07/14/2021 CT abdomen pelvis: Dilated main and bilateral pulmonary arteries suggesting pulmonary hypertension, moderate volume right pleural effusion with compressive atelectasis at right lower lobe, moderate cardiomegaly with dilated right ventricle and reflux of contrast in IVC suggesting right heart dysfunction. Heterogenous enhancement and decreased density of the left kidney new since CTA on 01/03/2014- may represent renal ischemia/infarction versus pyelonephritis, neoplasm not ruled out. 2.9 superior and lateral left renal cyst with delayed peripheral nodular enhancement suspicious for cystic renal neoplasm, MRI/CT with IV contrast recommended. Splenic infarction, given left renal and splenic infarctions embolic etiology should be considered. Patient was given IV fluids due to tachycardia, patient's anticoagulants were held for thoracentesis, so there were concerns about possible pulmonary emboli, CT was therefore ordered with negative findings. Case was discussed with hospitalist and decision to admit Patient was admitted under Dr. Maddie Nascimento: Acute problem list and plan: 1. Acute hypoxic respiratory failure secondary right-sided pleural effusion with decompensated RV dysfunction, elevated leukocytosis with recent hospitalization could have concurrent pneumonia: We will check strep pneumo, Legionella antigens, flu, RSV, thoracentesis ordered with fluid studies, O2 as needed, continue aerosol, leukocytosis coverage ordered with IV antibiotics. 2. Splenic/renal infarct: Suspected to be related to subtherapeutic INR and atrial fibrillation, heparin drip was started, patient had prior complications with Xarelto, has been on Coumadin but consider trial of Eliquis as an alternative. Echocardiogram ordered. 3. Leukocytosis: Cultures were ordered, empiric antibiotics, lactic acid normal. 4. Recurrent right-sided pleural effusion: May be related to pulmonary artery hypertension, CT shows marked dilatation of central vasculature without PE, echocardiogram ordered. Started on Lasix drip. 5. Decompensated right-sided heart failure: Lasix drip started, follow BMP, sodium restriction, consider right-sided heart cath, pulmonary medicine consult. 6. Cystic renal mass: Concerning for malignancy, abdominal MRI ordered, consult urology 7. PAF: Current atrial fibrillation, heparin drip started, again echocardiogram ordered to check for embolic sources, diltiazem and metoprolol continued. 8. GERD: Continue omeprazole 9. DVT prophylaxis: Heparin drip CODE STATUS: DNR CCA without intubation 07/14/[address] Malika Jain neurologist: increasing left upper quadrant and flank pain, atypical left renal cyst. Assessment and plan: Right renal cyst, renal infarction: No plans for intervention of 3 cm suspicious lesion during this admission, felt he could be done outpatient. 07/15/2021 consultation open soaper tender Dr. Dwayne Garcia: Assessment right pleural effusion: Continue diuretic therapy, empiric antimicrobials, thoracentesis recommended, eventual right heart cath work and secondary work-up for pH outpatient basis. 07/15/2021 echocardiogram: LV size and LV SF WNL, EF 60 to 65%. RV normal size and RV SF EF. Left atrium moderately enlarged, right atrium mildly enlarged. MV: Moderate mitral annular calcification, 1-2+ MA. TV: Normal. AV: Diffuse aortic valve calcification. PV: Not well visualized. Great vessels and aortic root normal. No pericardial effusion. No significant changes from prior echo. 07/15/2021 MR abdomen with and without IV contrast: Large right pleural effusion, moderate cardiomegaly, distended inferior vena cava and hepatic veins indicative of right-sided heart failure. Scarring of spleen related to old ischemia trauma, multiple nonenhancing lesions in the left kidney identified with contrast which may be related to inflammatory or infectious process 07/16/2021: Ultrasound-guided thoracentesis Dr. Gary Reyes: 670 mL of blood-tinged cloudy fluid drained and sent for analysis Chest x-ray following: Status post right thoracentesis no evidence of hemothorax, residual blunting of right costophrenic angle. Pertinent lab summary: 07/14/2021 blood cultures x2 sites showed no growth over 5 days. Urine clean catch for Legionella and Streptococcus pneumonia both negative. Nasal swab for rapid RSV and influenza as well as SARS Covid-2 all negative. 07/22/2021 WBC 10.2-Hgb 12.1-HCT 37-PLT 338. Chemistries: NA 136-K4.3-CL 102-CO2 30-BUN 14-CRE 0.94-GLU 90 Discharge weight 59.1 kg, BMI 26.4 Hospital course: Hospital course: Noted to be hypoxic 88% on arrival, CT showed moderate right pleural effusion with compressive atelectasis. In addition patient was found to have left renal infarct as well as splenic infarcts which were considered to be embolic. Patient's INR was subtherapeutic on the arrival. Thoracentesis as above, cytology was negative for malignancy, concern possibly due to rheumatoid arthritis. Patient is to have follow-up with pulmonology and wants to transfer care to Dr. Mariee. She did develop atrial fib with rapid ventricular rate during the hospital course, which was treated temporarily with diltiazem drip, metoprolol was increased from 25 100 mg twice daily and amiodarone 200 mg twice daily was added with successful rate control. New medications: Discharge planning follow-up: Acute respiratory failure with hypoxia Acute exacerbation chronic pleural effusion Right splenic infarct Decompensated HFpEF Cystic renal mass Paroxysmal atrial fibrillation Leukocytosis Status post thoracentesis Mitral valve annular calcification, 1-2+ insufficiency stable Aortic valve diffuse calcification stable COPD Hypertension Subtherapeutic INR due to holding Coumadin for thoracentesis Medication reconciliation: Metoprolol tartrate 100 mg p.o. twice daily #60/0 Amiodarone 200 mg p.o. twice daily #60/0 Change medications: Warfarin 4 mg p.o. daily Discontinued medications: Warfarin 2 mg Metoprolol tartrate 75 mg p.o. twice daily Continue medications: Multivitamin 1 tablet daily Calcium carbonate 600 mg (1500 mg) tablet 1 p.o. daily Furosemide 40 mg p.o. twice daily Handicap placard Albuterol sulfate 90 MCG per actuation HFA inhaler: 2 puffs every 4 hours as needed shortness of breath Omeprazole 40 mg capsule daily AC Potassium chloride 20 mEq ER: 1 tablet twice daily Diltiazem 2040 mg capsule extended release 24-hour: 1 capsule daily Referral/follow-up: Dr. Flaquito Mariee pulmonology 2 weeks Hypokalemia 07/09/2021 11/08/2022 Hyponatremia 07/09/2021 11/08/2022 Hypoxemia 06/23/2021 11/08/2022 Hypoxia 06/23/2021 11/08/2022 Pleural effusion, right 05/05/20200 11/2022 Overview: Now seeing Dr. Mariee Thoracic aorta atherosclerosis 03/23/2020 09/23/2020 Chronic systolic heart failure 11/21/2019 09/23/2020 Fatigue 11/24/2016 10/10/2017 Atrial fibrillation 01/14/2014 10/11/19 Centrilobular emphysema 01/14/201411/2022 Multiple thyroid nodules 03/03/2011 Hypertension 01/19/2011 06/23/2015 Esophagitis, unspecified 01/13/200901/2018 Gastrointestinal malfunction arising from mental factors 12/09/2008 10/10/2017 Nontoxic multinodular goiter 12/08/2008 05/08/2018 Dysphagia, unspecified(787.20) 05/08/2018 documented as of this encounter (statuses as of 01/27/2023) [facility]04-17-2023 History of Past illness Narrative* Problem Noted Date Diagnosed Date Resolved Date Deviation of international n ormalized ratio (INR) from target range 09/19/2022 11/08/2022 History of surgical procedure 09/19/2022 11/08/2022 Renal infarct 04/19/2022 07/26/2022 Overview: Has seen Dr. Chaney. Needs to just follow up prn. Dehydration 02/03/2022 11/08/2022 Gram-negative bacteremia 02/03/202211/2022 Hypophosphatemia 02/03/2022 11/08/2022 Pneumonia 02/03/2022 11/08/2022 Pyothorax without fistula 02/03/2022 Pleural effusion 01/31/2022 04/19/2022 Abnormal levels of other serum enzymes 11/11/2021 11/08/2022 Elevated liver enzymes 11/11/202111/08 Neoplasm of uncertain behavior of left kidney 09/24/19 22 11/08/2022 Shortness of breath 09/16/2021 11/09/19 23 Acute respiratory failure 07/22/2021 Chronic passive congestion of liver 07/22/2021 11/08/2022 Cyst of kidney, acquired 07/22/202111/2022 Ischemia and infarction of kidney 07/22/2021 11/08/2022 Overview: Has seen Dr Calvin Leukocytosis 07/22/2021 11/08/2022 Encounter for support and co ordination of transition of care 07/20/2021 07/26/2022 Overview: Facility: [facility] Date of admission 07/14/2021 Date of discharge Prehospital work-up: Presented to 07/14/2021 to [facility] ED complaining of left-sided abdominal pain with multiple symptoms including cough, myalgias, nasal congestion, low dietary intake due to concerns that would aggravate stomach ache. Patient was exposed to Covid 2 weeks prior, unvaccinated. Vital signs: 98.3 [id number]/102-93% RA. Exam description: Tired, alert and nontoxic, normal respiratory effort, mild tenderness left upper quadrant without rebound or guarding. WBC 20.3-Hgb 14-HCT 43-PLT 388-Ig percent 0.5-absolute neutrophil 17 point 3H Lactic acid 1.2. Sodium 131-K3.8-CL 95-CO2 29.0, glucose 133, otherwise CMP is within normal limits. Calcium 9.1. Liver panel: Total bili 1.10H-AST 180-ALT 95-ALP 126-total protein 8.3-Albumin three-point 3-5 and 50.0-lipase 74. 07/14/2021 CT abdomen pelvis: Dilated main and bilateral pulmonary arteries suggesting pulmonary hypertension, moderate volume right pleural effusion with compressive atelectasis at right lower lobe, moderate cardiomegaly with dilated right ventricle and reflux of contrast in IVC suggesting right heart dysfunction. Heterogenous enhancement and decreased density of the left kidney new since CTA on 01/03/2014- may represent renal ischemia/infarction versus pyelonephritis, neoplasm not ruled out. 2.9 superior and lateral left renal cyst with delayed peripheral nodular enhancement suspicious for cystic renal neoplasm, MRI/CT with IV contrast recommended. Splenic infarction, given left renal and splenic infarctions embolic etiology should be considered. Patient was given IV fluids due to tachycardia, patient's anticoagulants were held for thoracentesis, so there were concerns about possible pulmonary emboli, CT was therefore ordered with negative findings. Case was discussed with hospitalist and decision to admit Patient was admitted under Dr. Maddie Nascimento: Acute problem list and plan: 1. Acute hypoxic respiratory failure secondary right-sided pleural effusion with decompensated RV dysfunction, elevated leukocytosis with recent hospitalization could have concurrent pneumonia: We will check strep pneumo, Legionella antigens, flu, RSV, thoracentesis ordered with fluid studies, O2 as needed, continue aerosol, leukocytosis coverage ordered with IV antibiotics. 2. Splenic/renal infarct: Suspected to be related to subtherapeutic INR and atrial fibrillation, heparin drip was started, patient had prior complications with Xarelto, has been on Coumadin but consider trial of Eliquis as an alternative. Echocardiogram ordered. 3. Leukocytosis: Cultures were ordered, empiric antibiotics, lactic acid normal. 4. Recurrent right-sided pleural effusion: May be related to pulmonary artery hypertension, CT shows marked dilatation of central vasculature without PE, echocardiogram ordered. Started on Lasix drip. 5. Decompensated right-sided heart failure: Lasix drip started, follow BMP, sodium restriction, consider right-sided heart cath, pulmonary medicine consult. 6. Cystic renal mass: Concerning for malignancy, abdominal MRI ordered, consult urology 7. PAF: Current atrial fibrillation, heparin drip started, again echocardiogram ordered to check for embolic sources, diltiazem and metoprolol continued. 8. GERD: Continue omeprazole 9. DVT prophylaxis: Heparin drip CODE STATUS: DNR CCA without intubation 07/14/[address] Malika Jain neurologist: increasing left upper quadrant and flank pain, atypical left renal cyst. Assessment and plan: Right renal cyst, renal infarction: No plans for intervention of 3 cm suspicious lesion during this admission, felt he could be done outpatient. 07/15/2021 consultation open soaper tender Dr. Dwayne Garcia: Assessment right pleural effusion: Continue diuretic therapy, empiric antimicrobials, thoracentesis recommended, eventual right heart cath work and secondary work-up for pH outpatient basis. 07/15/2021 echocardiogram: LV size and LV SF WNL, EF 60 to 65%. RV normal size and RV SF EF. Left atrium moderately enlarged, right atrium mildly enlarged. MV: Moderate mitral annular calcification, 1-2+ MA. TV: Normal. AV: Diffuse aortic valve calcification. PV: Not well visualized. Great vessels and aortic root normal. No pericardial effusion. No significant changes from prior echo. 07/15/2021 MR abdomen with and without IV contrast: Large right pleural effusion, moderate cardiomegaly, distended inferior vena cava and hepatic veins indicative of right-sided heart failure. Scarring of spleen related to old ischemia trauma, multiple nonenhancing lesions in the left kidney identified with contrast which may be related to inflammatory or infectious process 07/16/2021: Ultrasound-guided thoracentesis Dr. Gary Reyes: 670 mL of blood-tinged cloudy fluid drained and sent for analysis Chest x-ray following: Status post right thoracentesis no evidence of hemothorax, residual blunting of right costophrenic angle. Pertinent lab summary: 07/14/2021 blood cultures x2 sites showed no growth over 5 days. Urine clean catch for Legionella and Streptococcus pneumonia both negative. Nasal swab for rapid RSV and influenza as well as SARS Covid-2 all negative. 07/22/2021 WBC 10.2-Hgb 12.1-HCT 37-PLT 338. Chemistries: NA 136-K4.3-CL 102-CO2 30-BUN 14-CRE 0.94-GLU 90 Discharge weight 59.1 kg, BMI 26.4 Hospital course: Hospital course: Noted to be hypoxic 88% on arrival, CT showed moderate right pleural effusion with compressive atelectasis. In addition patient was found to have left renal infarct as well as splenic infarcts which were considered to be embolic. Patient's INR was subtherapeutic on the arrival. Thoracentesis as above, cytology was negative for malignancy, concern possibly due to rheumatoid arthritis. Patient is to have follow-up with pulmonology and wants to transfer care to Dr. Mariee. She did develop atrial fib with rapid ventricular rate during the hospital course, which was treated temporarily with diltiazem drip, metoprolol was increased from 25 100 mg twice daily and amiodarone 200 mg twice daily was added with successful rate control. New medications: Discharge planning follow-up: Acute respiratory failure with hypoxia Acute exacerbation chronic pleural effusion Right splenic infarct Decompensated HFpEF Cystic renal mass Paroxysmal atrial fibrillation Leukocytosis Status post thoracentesis Mitral valve annular calcification, 1-2+ insufficiency stable Aortic valve diffuse calcification stable COPD Hypertension Subtherapeutic INR due to holding Coumadin for thoracentesis Medication reconciliation: Metoprolol tartrate 100 mg p.o. twice daily #60/0 Amiodarone 200 mg p.o. twice daily #60/0 Change medications: Warfarin 4 mg p.o. daily Discontinued medications: Warfarin 2 mg Metoprolol tartrate 75 mg p.o. twice daily Continue medications: Multivitamin 1 tablet daily Calcium carbonate 600 mg (1500 mg) tablet 1 p.o. daily Furosemide 40 mg p.o. twice daily Handicap placard Albuterol sulfate 90 MCG per actuation HFA inhaler: 2 puffs every 4 hours as needed shortness of breath Omeprazole 40 mg capsule daily AC Potassium chloride 20 mEq ER: 1 tablet twice daily Diltiazem 2040 mg capsule extended release 24-hour: 1 capsule daily Referral/follow-up: Dr. Flaquito Mariee pulmonology 2 weeks Hypokalemia 07/09/2021 11/08/2022 Hyponatremia 07/09/2021 11/08/2022 Hypoxemia 06/23/2021 11/08/2022 Hypoxia 06/23/2021 11/08/2022 Pleural effusion, right 05/05/202011/2022 Overview: Now seeing Dr. Mariee Thoracic aorta atherosclerosis 03/23/2020 09/23/2020 Chronic systolic heart failure 11/21/2019 09/23/2020 Fatigue 11/24/2016 10/10/2017 Atrial fibrillation 01/14/2014 10/11/19 18 Centrilobular emphysema 01/14/201411/2022 Multiple thyroid nodules 03/03/2011 Hypertension 01/19/2011 06/23/2015 Esophagitis, unspecified 01/13/200901/2018 Gastrointestinal malfunction arising from mental factors 12/09/2008 10/10/2017 Nontoxic multinodular goiter 12/08/2008 05/08/2018 Dysphagia, unspecified(787.20) 05/08/2018 documented as of this encounter (statuses as of 01/27/2023) [facility]04-17-2023 History of Past illness Narrative* Problem Noted Date Diagnosed Date Resolved Date Deviation of international n ormalized ratio (INR) from target range 09/19/2022 11/08/2022 History of surgical procedure 09/19/2022 11/08/2022 Renal infarct 04/19/2022 07/26/2022 Overview: Has seen Dr. Chaney. Needs to just follow up prn. Dehydration 02/03/2022 11/08/2022 Gram-negative bacteremia 02/03/202211/2022 Hypophosphatemia 02/03/2022 11/08/2022 Pneumonia 02/03/2022 11/08/2022 Pyothorax without fistula 02/03/2022 Pleural effusion 01/31/2022 04/19/2022 Abnormal levels of other serum enzymes 11/11/2021 11/08/2022 Elevated liver enzymes 11/11/202111/08 Neoplasm of uncertain behavior of left kidney 09/24/19 22 11/08/2022 Shortness of breath 09/16/2021 11/09/19 Acute respiratory failure 07/22/2021 Chronic passive congestion of liver 07/22/2021 11/08/2022 Cyst of kidney, acquired 07/22/202111/2022 Ischemia and infarction of kidney 07/22/2021 11/08/2022 Overview: Has seen Dr Calvin Leukocytosis 07/22/2021 11/08/2022 Encounter for support and co ordination of transition of care 07/20/2021 07/26/2022 Overview: Facility: [facility] Date of admission 07/14/2021 Date of discharge Prehospital work-up: Presented to 07/14/2021 to [facility] ED complaining of left-sided abdominal pain with multiple symptoms including cough, myalgias, nasal congestion, low dietary intake due to concerns that would aggravate stomach ache. Patient was exposed to Covid 2 weeks prior, unvaccinated. Vital signs: 98.3 [id number]/102-93% RA. Exam description: Tired, alert and nontoxic, normal respiratory effort, mild tenderness left upper quadrant without rebound or guarding. WBC 20.3-Hgb 14-HCT 43-PLT 388-Ig percent 0.5-absolute neutrophil 17 point 3H Lactic acid 1.2. Sodium 131-K3.8-CL 95-CO2 29.0, glucose 133, otherwise CMP is within normal limits. Calcium 9.1. Liver panel: Total bili 1.10H-AST 180-ALT 95-ALP 126-total protein 8.3-Albumin three-point 3-5 and 50.0-lipase 74. 07/14/2021 CT abdomen pelvis: Dilated main and bilateral pulmonary arteries suggesting pulmonary hypertension, moderate volume right pleural effusion with compressive atelectasis at right lower lobe, moderate cardiomegaly with dilated right ventricle and reflux of contrast in IVC suggesting right heart dysfunction. Heterogenous enhancement and decreased density of the left kidney new since CTA on 01/03/2014- may represent renal ischemia/infarction versus pyelonephritis, neoplasm not ruled out. 2.9 superior and lateral left renal cyst with delayed peripheral nodular enhancement suspicious for cystic renal neoplasm, MRI/CT with IV contrast recommended. Splenic infarction, given left renal and splenic infarctions embolic etiology should be considered. Patient was given IV fluids due to tachycardia, patient's anticoagulants were held for thoracentesis, so there were concerns about possible pulmonary emboli, CT was therefore ordered with negative findings. Case was discussed with hospitalist and decision to admit Patient was admitted under Dr. Maddie Nascimento: Acute problem list and plan: 1. Acute hypoxic respiratory failure secondary right-sided pleural effusion with decompensated RV dysfunction, elevated leukocytosis with recent hospitalization could have concurrent pneumonia: We will check strep pneumo, Legionella antigens, flu, RSV, thoracentesis ordered with fluid studies, O2 as needed, continue aerosol, leukocytosis coverage ordered with IV antibiotics. 2. Splenic/renal infarct: Suspected to be related to subtherapeutic INR and atrial fibrillation, heparin drip was started, patient had prior complications with Xarelto, has been on Coumadin but consider trial of Eliquis as an alternative. Echocardiogram ordered. 3. Leukocytosis: Cultures were ordered, empiric antibiotics, lactic acid normal. 4. Recurrent right-sided pleural effusion: May be related to pulmonary artery hypertension, CT shows marked dilatation of central vasculature without PE, echocardiogram ordered. Started on Lasix drip. 5. Decompensated right-sided heart failure: Lasix drip started, follow BMP, sodium restriction, consider right-sided heart cath, pulmonary medicine consult. 6. Cystic renal mass: Concerning for malignancy, abdominal MRI ordered, consult urology 7. PAF: Current atrial fibrillation, heparin drip started, again echocardiogram ordered to check for embolic sources, diltiazem and metoprolol continued. 8. GERD: Continue omeprazole 9. DVT prophylaxis: Heparin drip CODE STATUS: DNR CCA without intubation 07/14/[address] Malika Jain neurologist: increasing left upper quadrant and flank pain, atypical left renal cyst. Assessment and plan: Right renal cyst, renal infarction: No plans for intervention of 3 cm suspicious lesion during this admission, felt he could be done outpatient. 07/15/2021 consultation open soaper tender Dr. Dwayne Garcia: Assessment right pleural effusion: Continue diuretic therapy, empiric antimicrobials, thoracentesis recommended, eventual right heart cath work and secondary work-up for pH outpatient basis. 07/15/2021 echocardiogram: LV size and LV SF WNL, EF 60 to 65%. RV normal size and RV SF EF. Left atrium moderately enlarged, right atrium mildly enlarged. MV: Moderate mitral annular calcification, 1-2+ MA. TV: Normal. AV: Diffuse aortic valve calcification. PV: Not well visualized. Great vessels and aortic root normal. No pericardial effusion. No significant changes from prior echo. 07/15/2021 MR abdomen with and without IV contrast: Large right pleural effusion, moderate cardiomegaly, distended inferior vena cava and hepatic veins indicative of right-sided heart failure. Scarring of spleen related to old ischemia trauma, multiple nonenhancing lesions in the left kidney identified with contrast which may be related to inflammatory or infectious process 07/16/2021: Ultrasound-guided thoracentesis Dr. Gary Reyes: 670 mL of blood-tinged cloudy fluid drained and sent for analysis Chest x-ray following: Status post right thoracentesis no evidence of hemothorax, residual blunting of right costophrenic angle. Pertinent lab summary: 07/14/2021 blood cultures x2 sites showed no growth over 5 days. Urine clean catch for Legionella and Streptococcus pneumonia both negative. Nasal swab for rapid RSV and influenza as well as SARS Covid-2 all negative. 07/22/2021 WBC 10.2-Hgb 12.1-HCT 37-PLT 338. Chemistries: NA 136-K4.3-CL 102-CO2 30-BUN 14-CRE 0.94-GLU 90 Discharge weight 59.1 kg, BMI 26.4 Hospital course: Hospital course: Noted to be hypoxic 88% on arrival, CT showed moderate right pleural effusion with compressive atelectasis. In addition patient was found to have left renal infarct as well as splenic infarcts which were considered to be embolic. Patient's INR was subtherapeutic on the arrival. Thoracentesis as above, cytology was negative for malignancy, concern possibly due to rheumatoid arthritis. Patient is to have follow-up with pulmonology and wants to transfer care to Dr. Mariee. She did develop atrial fib with rapid ventricular rate during the hospital course, which was treated temporarily with diltiazem drip, metoprolol was increased from 25 100 mg twice daily and amiodarone 200 mg twice daily was added with successful rate control. New medications: Discharge planning follow-up: Acute respiratory failure with hypoxia Acute exacerbation chronic pleural effusion Right splenic infarct Decompensated HFpEF Cystic renal mass Paroxysmal atrial fibrillation Leukocytosis Status post thoracentesis Mitral valve annular calcification, 1-2+ insufficiency stable Aortic valve diffuse calcification stable COPD Hypertension Subtherapeutic INR due to holding Coumadin for thoracentesis Medication reconciliation: Metoprolol tartrate 100 mg p.o. twice daily #60/0 Amiodarone 200 mg p.o. twice daily #60/0 Change medications: Warfarin 4 mg p.o. daily Discontinued medications: Warfarin 2 mg Metoprolol tartrate 75 mg p.o. twice daily Continue medications: Multivitamin 1 tablet daily Calcium carbonate 600 mg (1500 mg) tablet 1 p.o. daily Furosemide 40 mg p.o. twice daily Handicap placard Albuterol sulfate 90 MCG per actuation HFA inhaler: 2 puffs every 4 hours as needed shortness of breath Omeprazole 40 mg capsule daily AC Potassium chloride 20 mEq ER: 1 tablet twice daily Diltiazem 2040 mg capsule extended release 24-hour: 1 capsule daily Referral/follow-up: Dr. Flaquito Mariee pulmonology 2 weeks Hypokalemia 07/09/2021 11/08/2022 Hyponatremia 07/09/2021 11/08/2022 Hypoxemia 06/23/2021 11/08/2022 Hypoxia 06/23/2021 11/08/2022 Pleural effusion, right 05/05/20200 11/2022 Overview: Now seeing Dr. Mariee Thoracic aorta atherosclerosis 03/23/2020 09/23/2020 Chronic systolic heart failure 11/21/2019 09/23/2020 Fatigue 11/24/2016 10/10/2017 Atrial fibrillation 01/14/2014 10/11/19 Centrilobular emphysema 01/14/201411/2022 Multiple thyroid nodules 03/03/2011 Hypertension 01/19/2011 06/23/2015 Esophagitis, unspecified 01/13/200901/2018 Gastrointestinal malfunction arising from mental factors 12/09/2008 10/10/2017 Nontoxic multinodular goiter 12/08/2008 05/08/2018 Dysphagia, unspecified(787.20) 05/08/2018 documented as of this encounter (statuses as of 02/10/2023) [facility]04-17-2023 History of Past illness Narrative* Problem Noted Date Diagnosed Date Resolved Date Deviation of international n ormalized ratio (INR) from target range 09/19/2022 11/08/2022 History of surgical procedure 09/19/2022 11/08/2022 Renal infarct 04/19/2022 07/26/2022 Overview: Has seen Dr. Chaney. Needs to just follow up prn. Dehydration 02/03/2022 11/08/2022 Gram-negative bacteremia 02/03/202211/2022 Hypophosphatemia 02/03/2022 11/08/2022 Pneumonia 02/03/2022 11/08/2022 Pyothorax without fistula 02/03/2022 Pleural effusion 01/31/2022 04/19/2022 Abnormal levels of other serum enzymes 11/11/2021 11/08/2022 Elevated liver enzymes 11/11/202111/08 Neoplasm of uncertain behavior of left kidney 09/24/19 22 11/08/2022 Shortness of breath 09/16/2021 11/09/19 23 Acute respiratory failure 07/22/2021 Chronic passive congestion of liver 07/22/2021 11/08/2022 Cyst of kidney, acquired 07/22/202111/2022 Ischemia and infarction of kidney 07/22/2021 11/08/2022 Overview: Has seen Dr Calvin Leukocytosis 07/22/2021 11/08/2022 Encounter for support and co ordination of transition of care 07/20/2021 07/26/2022 Overview: Facility: [facility] Date of admission 07/14/2021 Date of discharge Prehospital work-up: Presented to 07/14/2021 to [facility] ED complaining of left-sided abdominal pain with multiple symptoms including cough, myalgias, nasal congestion, low dietary intake due to concerns that would aggravate stomach ache. Patient was exposed to Covid 2 weeks prior, unvaccinated. Vital signs: 98.3 A-398-37-143/102-93% RA. Exam description: Tired, alert and nontoxic, normal respiratory effort, mild tenderness left upper quadrant without rebound or guarding. WBC 20.3-Hgb 14-HCT 43-PLT 388-Ig percent 0.5-absolute neutrophil 17 point 3H Lactic acid 1.2. Sodium 131-K3.8-CL 95-CO2 29.0, glucose 133, otherwise CMP is within normal limits. Calcium 9.1. Liver panel: Total bili 1.10H-AST 180-ALT 95-ALP 126-total protein 8.3-Albumin three-point 3-5 and 50.0-lipase 74. 07/14/2021 CT abdomen pelvis: Dilated main and bilateral pulmonary arteries suggesting pulmonary hypertension, moderate volume right pleural effusion with compressive atelectasis at right lower lobe, moderate cardiomegaly with dilated right ventricle and reflux of contrast in IVC suggesting right heart dysfunction. Heterogenous enhancement and decreased density of the left kidney new since CTA on 01/03/2014- may represent renal ischemia/infarction versus pyelonephritis, neoplasm not ruled out. 2.9 superior and lateral left renal cyst with delayed peripheral nodular enhancement suspicious for cystic renal neoplasm, MRI/CT with IV contrast recommended. Splenic infarction, given left renal and splenic infarctions embolic etiology should be considered. Patient was given IV fluids due to tachycardia, patient's anticoagulants were held for thoracentesis, so there were concerns about possible pulmonary emboli, CT was therefore ordered with negative findings. Case was discussed with hospitalist and decision to admit Patient was admitted under Dr. Maddie Nascimento: Acute problem list and plan: 1. Acute hypoxic respiratory failure secondary right-sided pleural effusion with decompensated RV dysfunction, elevated leukocytosis with recent hospitalization could have concurrent pneumonia: We will check strep pneumo, Legionella antigens, flu, RSV, thoracentesis ordered with fluid studies, O2 as needed, continue aerosol, leukocytosis coverage ordered with IV antibiotics. 2. Splenic/renal infarct: Suspected to be related to subtherapeutic INR and atrial fibrillation, heparin drip was started, patient had prior complications with Xarelto, has been on Coumadin but consider trial of Eliquis as an alternative. Echocardiogram ordered. 3. Leukocytosis: Cultures were ordered, empiric antibiotics, lactic acid normal. 4. Recurrent right-sided pleural effusion: May be related to pulmonary artery hypertension, CT shows marked dilatation of central vasculature without PE, echocardiogram ordered. Started on Lasix drip. 5. Decompensated right-sided heart failure: Lasix drip started, follow BMP, sodium restriction, consider right-sided heart cath, pulmonary medicine consult. 6. Cystic renal mass: Concerning for malignancy, abdominal MRI ordered, consult urology 7. PAF: Current atrial fibrillation, heparin drip started, again echocardiogram ordered to check for embolic sources, diltiazem and metoprolol continued. 8. GERD: Continue omeprazole 9. DVT prophylaxis: Heparin drip CODE STATUS: DNR CCA without intubation 07/14/[address] Malika Jain neurologist: increasing left upper quadrant and flank pain, atypical left renal cyst. Assessment and plan: Right renal cyst, renal infarction: No plans for intervention of 3 cm suspicious lesion during this admission, felt he could be done outpatient. 07/15/2021 consultation open soaper tender Dr. Dwayne Garcia: Assessment right pleural effusion: Continue diuretic therapy, empiric antimicrobials, thoracentesis recommended, eventual right heart cath work and secondary work-up for pH outpatient basis. 07/15/2021 echocardiogram: LV size and LV SF WNL, EF 60 to 65%. RV normal size and RV SF EF. Left atrium moderately enlarged, right atrium mildly enlarged. MV: Moderate mitral annular calcification, 1-2+ MA. TV: Normal. AV: Diffuse aortic valve calcification. PV: Not well visualized. Great vessels and aortic root normal. No pericardial effusion. No significant changes from prior echo. 07/15/2021 MR abdomen with and without IV contrast: Large right pleural effusion, moderate cardiomegaly, distended inferior vena cava and hepatic veins indicative of right-sided heart failure. Scarring of spleen related to old ischemia trauma, multiple nonenhancing lesions in the left kidney identified with contrast which may be related to inflammatory or infectious process 07/16/2021: Ultrasound-guided thoracentesis Dr. Gary Reyes: 670 mL of blood-tinged cloudy fluid drained and sent for analysis Chest x-ray following: Status post right thoracentesis no evidence of hemothorax, residual blunting of right costophrenic angle. Pertinent lab summary: 07/14/2021 blood cultures x2 sites showed no growth over 5 days. Urine clean catch for Legionella and Streptococcus pneumonia both negative. Nasal swab for rapid RSV and influenza as well as SARS Covid-2 all negative. 07/22/2021 WBC 10.2-Hgb 12.1-HCT 37-PLT 338. Chemistries: NA 136-K4.3-CL 102-CO2 30-BUN 14-CRE 0.94-GLU 90 Discharge weight 59.1 kg, BMI 26.4 Hospital course: Hospital course: Noted to be hypoxic 88% on arrival, CT showed moderate right pleural effusion with compressive atelectasis. In addition patient was found to have left renal infarct as well as splenic infarcts which were considered to be embolic. Patient's INR was subtherapeutic on the arrival. Thoracentesis as above, cytology was negative for malignancy, concern possibly due to rheumatoid arthritis. Patient is to have follow-up with pulmonology and wants to transfer care to Dr. Mariee. She did develop atrial fib with rapid ventricular rate during the hospital course, which was treated temporarily with diltiazem drip, metoprolol was increased from 25 100 mg twice daily and amiodarone 200 mg twice daily was added with successful rate control. New medications: Discharge planning follow-up: Acute respiratory failure with hypoxia Acute exacerbation chronic pleural effusion Right splenic infarct Decompensated HFpEF Cystic renal mass Paroxysmal atrial fibrillation Leukocytosis Status post thoracentesis Mitral valve annular calcification, 1-2+ insufficiency stable Aortic valve diffuse calcification stable COPD Hypertension Subtherapeutic INR due to holding Coumadin for thoracentesis Medication reconciliation: Metoprolol tartrate 100 mg p.o. twice daily #60/0 Amiodarone 200 mg p.o. twice daily #60/0 Change medications: Warfarin 4 mg p.o. daily Discontinued medications: Warfarin 2 mg Metoprolol tartrate 75 mg p.o. twice daily Continue medications: Multivitamin 1 tablet daily Calcium carbonate 600 mg (1500 mg) tablet 1 p.o. daily Furosemide 40 mg p.o. twice daily Handicap placard Albuterol sulfate 90 MCG per actuation HFA inhaler: 2 puffs every 4 hours as needed shortness of breath Omeprazole 40 mg capsule daily AC Potassium chloride 20 mEq ER: 1 tablet twice daily Diltiazem 2040 mg capsule extended release 24-hour: 1 capsule daily Referral/follow-up: Dr. Flaquito Mariee pulmonology 2 weeks Hypokalemia 07/09/2021 11/08/2022 Hyponatremia 07/09/2021 11/08/2022 Hypoxemia 06/23/2021 11/08/2022 Hypoxia 06/23/2021 11/08/2022 Pleural effusion, right 05/05/202011/2022 Overview: Now seeing Dr. Mariee Thoracic aorta atherosclerosis 03/23/2020 09/23/2020 Chronic systolic heart failure 11/21/2019 09/23/2020 Fatigue 11/24/2016 10/10/2017 Atrial fibrillation 01/14/2014 10/11/19 18 Centrilobular emphysema 01/14/201411/2022 Multiple thyroid nodules 03/03/2011 Hypertension 01/19/2011 06/23/2015 Esophagitis, unspecified 01/13/200901/2018 Gastrointestinal malfunction arising from mental factors 12/09/2008 10/10/2017 Nontoxic multinodular goiter 12/08/2008 05/08/2018 Dysphagia, unspecified(787.20) 05/08/2018 documented as of this encounter (statuses as of 02/16/2023) [facility]04-17-2023 History of Past illness Narrative* Problem Noted Date Diagnosed Date Resolved Date Deviation of international n ormalized ratio (INR) from target range 09/19/2022 11/08/2022 History of surgical procedure 09/19/2022 11/08/2022 Renal infarct 04/19/2022 07/26/2022 Overview: Has seen Dr. Chaney. Needs to just follow up prn. Dehydration 02/03/2022 11/08/2022 Gram-negative bacteremia 02/03/202211/2022 Hypophosphatemia 02/03/2022 11/08/2022 Pneumonia 02/03/2022 11/08/2022 Pyothorax without fistula 02/03/2022 Pleural effusion 01/31/2022 04/19/2022 Abnormal levels of other serum enzymes 11/11/2021 11/08/2022 Elevated liver enzymes 11/11/202111/08 Neoplasm of uncertain behavior of left kidney 09/24/19 22 11/08/2022 Shortness of breath 09/16/2021 11/09/19 Acute respiratory failure 07/22/2021 Chronic passive congestion of liver 07/22/2021 11/08/2022 Cyst of kidney, acquired 07/22/202111/2022 Ischemia and infarction of kidney 07/22/2021 11/08/2022 Overview: Has seen Dr Calvin Leukocytosis 07/22/2021 11/08/2022 Encounter for support and co ordination of transition of care 07/20/2021 07/26/2022 Overview: Facility: [facility] Date of admission 07/14/2021 Date of discharge Prehospital work-up: Presented to 07/14/2021 to [facility] ED complaining of left-sided abdominal pain with multiple symptoms including cough, myalgias, nasal congestion, low dietary intake due to concerns that would aggravate stomach ache. Patient was exposed to Covid 2 weeks prior, unvaccinated. Vital signs: 98.3 B-682-56-143/102-93% RA. Exam description: Tired, alert and nontoxic, normal respiratory effort, mild tenderness left upper quadrant without rebound or guarding. WBC 20.3-Hgb 14-HCT 43-PLT 388-Ig percent 0.5-absolute neutrophil 17 point 3H Lactic acid 1.2. Sodium 131-K3.8-CL 95-CO2 29.0, glucose 133, otherwise CMP is within normal limits. Calcium 9.1. Liver panel: Total bili 1.10H-AST 180-ALT 95-ALP 126-total protein 8.3-Albumin three-point 3-5 and 50.0-lipase 74. 07/14/2021 CT abdomen pelvis: Dilated main and bilateral pulmonary arteries suggesting pulmonary hypertension, moderate volume right pleural effusion with compressive atelectasis at right lower lobe, moderate cardiomegaly with dilated right ventricle and reflux of contrast in IVC suggesting right heart dysfunction. Heterogenous enhancement and decreased density of the left kidney new since CTA on 01/03/2014- may represent renal ischemia/infarction versus pyelonephritis, neoplasm not ruled out. 2.9 superior and lateral left renal cyst with delayed peripheral nodular enhancement suspicious for cystic renal neoplasm, MRI/CT with IV contrast recommended. Splenic infarction, given left renal and splenic infarctions embolic etiology should be considered. Patient was given IV fluids due to tachycardia, patient's anticoagulants were held for thoracentesis, so there were concerns about possible pulmonary emboli, CT was therefore ordered with negative findings. Case was discussed with hospitalist and decision to admit Patient was admitted under Dr. Maddie Nascimento: Acute problem list and plan: 1. Acute hypoxic respiratory failure secondary right-sided pleural effusion with decompensated RV dysfunction, elevated leukocytosis with recent hospitalization could have concurrent pneumonia: We will check strep pneumo, Legionella antigens, flu, RSV, thoracentesis ordered with fluid studies, O2 as needed, continue aerosol, leukocytosis coverage ordered with IV antibiotics. 2. Splenic/renal infarct: Suspected to be related to subtherapeutic INR and atrial fibrillation, heparin drip was started, patient had prior complications with Xarelto, has been on Coumadin but consider trial of Eliquis as an alternative. Echocardiogram ordered. 3. Leukocytosis: Cultures were ordered, empiric antibiotics, lactic acid normal. 4. Recurrent right-sided pleural effusion: May be related to pulmonary artery hypertension, CT shows marked dilatation of central vasculature without PE, echocardiogram ordered. Started on Lasix drip. 5. Decompensated right-sided heart failure: Lasix drip started, follow BMP, sodium restriction, consider right-sided heart cath, pulmonary medicine consult. 6. Cystic renal mass: Concerning for malignancy, abdominal MRI ordered, consult urology 7. PAF: Current atrial fibrillation, heparin drip started, again echocardiogram ordered to check for embolic sources, diltiazem and metoprolol continued. 8. GERD: Continue omeprazole 9. DVT prophylaxis: Heparin drip CODE STATUS: DNR CCA without intubation 07/14/[address] Malika Jain neurologist: increasing left upper quadrant and flank pain, atypical left renal cyst. Assessment and plan: Right renal cyst, renal infarction: No plans for intervention of 3 cm suspicious lesion during this admission, felt he could be done outpatient. 07/15/2021 consultation open soaper tender Dr. Dwayne Garcia: Assessment right pleural effusion: Continue diuretic therapy, empiric antimicrobials, thoracentesis recommended, eventual right heart cath work and secondary work-up for pH outpatient basis. 07/15/2021 echocardiogram: LV size and LV SF WNL, EF 60 to 65%. RV normal size and RV SF EF. Left atrium moderately enlarged, right atrium mildly enlarged. MV: Moderate mitral annular calcification, 1-2+ MA. TV: Normal. AV: Diffuse aortic valve calcification. PV: Not well visualized. Great vessels and aortic root normal. No pericardial effusion. No significant changes from prior echo. 07/15/2021 MR abdomen with and without IV contrast: Large right pleural effusion, moderate cardiomegaly, distended inferior vena cava and hepatic veins indicative of right-sided heart failure. Scarring of spleen related to old ischemia trauma, multiple nonenhancing lesions in the left kidney identified with contrast which may be related to inflammatory or infectious process 07/16/2021: Ultrasound-guided thoracentesis Dr. Gary Reyes: 670 mL of blood-tinged cloudy fluid drained and sent for analysis Chest x-ray following: Status post right thoracentesis no evidence of hemothorax, residual blunting of right costophrenic angle. Pertinent lab summary: 07/14/2021 blood cultures x2 sites showed no growth over 5 days. Urine clean catch for Legionella and Streptococcus pneumonia both negative. Nasal swab for rapid RSV and influenza as well as SARS Covid-2 all negative. 07/22/2021 WBC 10.2-Hgb 12.1-HCT 37-PLT 338. Chemistries: NA 136-K4.3-CL 102-CO2 30-BUN 14-CRE 0.94-GLU 90 Discharge weight 59.1 kg, BMI 26.4 Hospital course: Hospital course: Noted to be hypoxic 88% on arrival, CT showed moderate right pleural effusion with compressive atelectasis. In addition patient was found to have left renal infarct as well as splenic infarcts which were considered to be embolic. Patient's INR was subtherapeutic on the arrival. Thoracentesis as above, cytology was negative for malignancy, concern possibly due to rheumatoid arthritis. Patient is to have follow-up with pulmonology and wants to transfer care to Dr. Mariee. She did develop atrial fib with rapid ventricular rate during the hospital course, which was treated temporarily with diltiazem drip, metoprolol was increased from 25 100 mg twice daily and amiodarone 200 mg twice daily was added with successful rate control. New medications: Discharge planning follow-up: Acute respiratory failure with hypoxia Acute exacerbation chronic pleural effusion Right splenic infarct Decompensated HFpEF Cystic renal mass Paroxysmal atrial fibrillation Leukocytosis Status post thoracentesis Mitral valve annular calcification, 1-2+ insufficiency stable Aortic valve diffuse calcification stable COPD Hypertension Subtherapeutic INR due to holding Coumadin for thoracentesis Medication reconciliation: Metoprolol tartrate 100 mg p.o. twice daily #60/0 Amiodarone 200 mg p.o. twice daily #60/0 Change medications: Warfarin 4 mg p.o. daily Discontinued medications: Warfarin 2 mg Metoprolol tartrate 75 mg p.o. twice daily Continue medications: Multivitamin 1 tablet daily Calcium carbonate 600 mg (1500 mg) tablet 1 p.o. daily Furosemide 40 mg p.o. twice daily Handicap placard Albuterol sulfate 90 MCG per actuation HFA inhaler: 2 puffs every 4 hours as needed shortness of breath Omeprazole 40 mg capsule daily AC Potassium chloride 20 mEq ER: 1 tablet twice daily Diltiazem 2040 mg capsule extended release 24-hour: 1 capsule daily Referral/follow-up: Dr. Flaquito Mariee pulmonology 2 weeks Hypokalemia 07/09/2021 11/08/2022 Hyponatremia 07/09/2021 11/08/2022 Hypoxemia 06/23/2021 11/08/2022 Hypoxia 06/23/2021 11/08/2022 Pleural effusion, right 05/05/20200 11/2022 Overview: Now seeing Dr. Mariee Thoracic aorta atherosclerosis 03/23/2020 09/23/2020 Chronic systolic heart failure 11/21/2019 09/23/2020 Fatigue 11/24/2016 10/10/2017 Atrial fibrillation 01/14/2014 10/11/19 Centrilobular emphysema 01/14/201411/2022 Multiple thyroid nodules 03/03/2011 Hypertension 01/19/2011 06/23/2015 Esophagitis, unspecified 01/13/200901/2018 Gastrointestinal malfunction arising from mental factors 12/09/2008 10/10/2017 Nontoxic multinodular goiter 12/08/2008 05/08/2018 Dysphagia, unspecified(787.20) 05/08/2018 documented as of this encounter (statuses as of 02/17/2023) [facility]04-17-2023 History of Past illness Narrative* Problem Noted Date Diagnosed Date Resolved Date Deviation of international n ormalized ratio (INR) from target range 09/19/2022 11/08/2022 History of surgical procedure 09/19/2022 11/08/2022 Renal infarct 04/19/2022 07/26/2022 Overview: Has seen Dr. Chaney. Needs to just follow up prn. Dehydration 02/03/2022 11/08/2022 Gram-negative bacteremia 02/03/202211/2022 Hypophosphatemia 02/03/2022 11/08/2022 Pneumonia 02/03/2022 11/08/2022 Pyothorax without fistula 02/03/2022 Pleural effusion 01/31/2022 04/19/2022 Abnormal levels of other serum enzymes 11/11/2021 11/08/2022 Elevated liver enzymes 11/11/202111/08 Neoplasm of uncertain behavior of left kidney 09/24/19 22 11/08/2022 Shortness of breath 09/16/2021 11/09/19 23 Acute respiratory failure 07/22/2021 Chronic passive congestion of liver 07/22/2021 11/08/2022 Cyst of kidney, acquired 07/22/202111/2022 Ischemia and infarction of kidney 07/22/2021 11/08/2022 Overview: Has seen Dr Calvin Leukocytosis 07/22/2021 11/08/2022 Encounter for support and co ordination of transition of care 07/20/2021 07/26/2022 Overview: Facility: [facility] Date of admission 07/14/2021 Date of discharge Prehospital work-up: Presented to 07/14/2021 to [facility] ED complaining of left-sided abdominal pain with multiple symptoms including cough, myalgias, nasal congestion, low dietary intake due to concerns that would aggravate stomach ache. Patient was exposed to Covid 2 weeks prior, unvaccinated. Vital signs: 98.3 D-350-27-143/102-93% RA. Exam description: Tired, alert and nontoxic, normal respiratory effort, mild tenderness left upper quadrant without rebound or guarding. WBC 20.3-Hgb 14-HCT 43-PLT 388-Ig percent 0.5-absolute neutrophil 17 point 3H Lactic acid 1.2. Sodium 131-K3.8-CL 95-CO2 29.0, glucose 133, otherwise CMP is within normal limits. Calcium 9.1. Liver panel: Total bili 1.10H-AST 180-ALT 95-ALP 126-total protein 8.3-Albumin three-point 3-5 and 50.0-lipase 74. 07/14/2021 CT abdomen pelvis: Dilated main and bilateral pulmonary arteries suggesting pulmonary hypertension, moderate volume right pleural effusion with compressive atelectasis at right lower lobe, moderate cardiomegaly with dilated right ventricle and reflux of contrast in IVC suggesting right heart dysfunction. Heterogenous enhancement and decreased density of the left kidney new since CTA on 01/03/2014- may represent renal ischemia/infarction versus pyelonephritis, neoplasm not ruled out. 2.9 superior and lateral left renal cyst with delayed peripheral nodular enhancement suspicious for cystic renal neoplasm, MRI/CT with IV contrast recommended. Splenic infarction, given left renal and splenic infarctions embolic etiology should be considered. Patient was given IV fluids due to tachycardia, patient's anticoagulants were held for thoracentesis, so there were concerns about possible pulmonary emboli, CT was therefore ordered with negative findings. Case was discussed with hospitalist and decision to admit Patient was admitted under Dr. Maddie Nascimento: Acute problem list and plan: 1. Acute hypoxic respiratory failure secondary right-sided pleural effusion with decompensated RV dysfunction, elevated leukocytosis with recent hospitalization could have concurrent pneumonia: We will check strep pneumo, Legionella antigens, flu, RSV, thoracentesis ordered with fluid studies, O2 as needed, continue aerosol, leukocytosis coverage ordered with IV antibiotics. 2. Splenic/renal infarct: Suspected to be related to subtherapeutic INR and atrial fibrillation, heparin drip was started, patient had prior complications with Xarelto, has been on Coumadin but consider trial of Eliquis as an alternative. Echocardiogram ordered. 3. Leukocytosis: Cultures were ordered, empiric antibiotics, lactic acid normal. 4. Recurrent right-sided pleural effusion: May be related to pulmonary artery hypertension, CT shows marked dilatation of central vasculature without PE, echocardiogram ordered. Started on Lasix drip. 5. Decompensated right-sided heart failure: Lasix drip started, follow BMP, sodium restriction, consider right-sided heart cath, pulmonary medicine consult. 6. Cystic renal mass: Concerning for malignancy, abdominal MRI ordered, consult urology 7. PAF: Current atrial fibrillation, heparin drip started, again echocardiogram ordered to check for embolic sources, diltiazem and metoprolol continued. 8. GERD: Continue omeprazole 9. DVT prophylaxis: Heparin drip CODE STATUS: DNR CCA without intubation 07/14/[address] Malika Jain neurologist: increasing left upper quadrant and flank pain, atypical left renal cyst. Assessment and plan: Right renal cyst, renal infarction: No plans for intervention of 3 cm suspicious lesion during this admission, felt he could be done outpatient. 07/15/2021 consultation open soaper tender Dr. Dwayne Garcia: Assessment right pleural effusion: Continue diuretic therapy, empiric antimicrobials, thoracentesis recommended, eventual right heart cath work and secondary work-up for pH outpatient basis. 07/15/2021 echocardiogram: LV size and LV SF WNL, EF 60 to 65%. RV normal size and RV SF EF. Left atrium moderately enlarged, right atrium mildly enlarged. MV: Moderate mitral annular calcification, 1-2+ MA. TV: Normal. AV: Diffuse aortic valve calcification. PV: Not well visualized. Great vessels and aortic root normal. No pericardial effusion. No significant changes from prior echo. 07/15/2021 MR abdomen with and without IV contrast: Large right pleural effusion, moderate cardiomegaly, distended inferior vena cava and hepatic veins indicative of right-sided heart failure. Scarring of spleen related to old ischemia trauma, multiple nonenhancing lesions in the left kidney identified with contrast which may be related to inflammatory or infectious process 07/16/2021: Ultrasound-guided thoracentesis Dr. Gary Reyes: 670 mL of blood-tinged cloudy fluid drained and sent for analysis Chest x-ray following: Status post right thoracentesis no evidence of hemothorax, residual blunting of right costophrenic angle. Pertinent lab summary: 07/14/2021 blood cultures x2 sites showed no growth over 5 days. Urine clean catch for Legionella and Streptococcus pneumonia both negative. Nasal swab for rapid RSV and influenza as well as SARS Covid-2 all negative. 07/22/2021 WBC 10.2-Hgb 12.1-HCT 37-PLT 338. Chemistries: NA 136-K4.3-CL 102-CO2 30-BUN 14-CRE 0.94-GLU 90 Discharge weight 59.1 kg, BMI 26.4 Hospital course: Hospital course: Noted to be hypoxic 88% on arrival, CT showed moderate right pleural effusion with compressive atelectasis. In addition patient was found to have left renal infarct as well as splenic infarcts which were considered to be embolic. Patient's INR was subtherapeutic on the arrival. Thoracentesis as above, cytology was negative for malignancy, concern possibly due to rheumatoid arthritis. Patient is to have follow-up with pulmonology and wants to transfer care to Dr. Mariee. She did develop atrial fib with rapid ventricular rate during the hospital course, which was treated temporarily with diltiazem drip, metoprolol was increased from 25 100 mg twice daily and amiodarone 200 mg twice daily was added with successful rate control. New medications: Discharge planning follow-up: Acute respiratory failure with hypoxia Acute exacerbation chronic pleural effusion Right splenic infarct Decompensated HFpEF Cystic renal mass Paroxysmal atrial fibrillation Leukocytosis Status post thoracentesis Mitral valve annular calcification, 1-2+ insufficiency stable Aortic valve diffuse calcification stable COPD Hypertension Subtherapeutic INR due to holding Coumadin for thoracentesis Medication reconciliation: Metoprolol tartrate 100 mg p.o. twice daily #60/0 Amiodarone 200 mg p.o. twice daily #60/0 Change medications: Warfarin 4 mg p.o. daily Discontinued medications: Warfarin 2 mg Metoprolol tartrate 75 mg p.o. twice daily Continue medications: Multivitamin 1 tablet daily Calcium carbonate 600 mg (1500 mg) tablet 1 p.o. daily Furosemide 40 mg p.o. twice daily Handicap placard Albuterol sulfate 90 MCG per actuation HFA inhaler: 2 puffs every 4 hours as needed shortness of breath Omeprazole 40 mg capsule daily AC Potassium chloride 20 mEq ER: 1 tablet twice daily Diltiazem 2040 mg capsule extended release 24-hour: 1 capsule daily Referral/follow-up: Dr. Flaquito Mariee pulmonology 2 weeks Hypokalemia 07/09/2021 11/08/2022 Hyponatremia 07/09/2021 11/08/2022 Hypoxemia 06/23/2021 11/08/2022 Hypoxia 06/23/2021 11/08/2022 Pleural effusion, right 05/05/202011/2022 Overview: Now seeing Dr. Mariee Thoracic aorta atherosclerosis 03/23/2020 09/23/2020 Chronic systolic heart failure 11/21/2019 09/23/2020 Fatigue 11/24/2016 10/10/2017 Atrial fibrillation 01/14/2014 10/11/19 18 Centrilobular emphysema 01/14/201411/2022 Multiple thyroid nodules 03/03/2011 Hypertension 01/19/2011 06/23/2015 Esophagitis, unspecified 01/13/200901/2018 Gastrointestinal malfunction arising from mental factors 12/09/2008 10/10/2017 Nontoxic multinodular goiter 12/08/2008 05/08/2018 Dysphagia, unspecified(787.20) 05/08/2018 documented as of this encounter (statuses as of 02/18/2023) [facility]04-17-2023 History of Past illness Narrative* Problem Noted Date Diagnosed Date Resolved Date Deviation of international n ormalized ratio (INR) from target range 09/19/2022 11/08/2022 History of surgical procedure 09/19/2022 11/08/2022 Renal infarct 04/19/2022 07/26/2022 Overview: Has seen Dr. Chaney. Needs to just follow up prn. Dehydration 02/03/2022 11/08/2022 Gram-negative bacteremia 02/03/202211/2022 Hypophosphatemia 02/03/2022 11/08/2022 Pneumonia 02/03/2022 11/08/2022 Pyothorax without fistula 02/03/2022 Pleural effusion 01/31/2022 04/19/2022 Abnormal levels of other serum enzymes 11/11/2021 11/08/2022 Elevated liver enzymes 11/11/202111/08 Neoplasm of uncertain behavior of left kidney 09/24/19 22 11/08/2022 Shortness of breath 09/16/2021 11/09/19 Acute respiratory failure 07/22/2021 Chronic passive congestion of liver 07/22/2021 11/08/2022 Cyst of kidney, acquired 07/22/202111/2022 Ischemia and infarction of kidney 07/22/2021 11/08/2022 Overview: Has seen Dr Calvin Leukocytosis 07/22/2021 11/08/2022 Encounter for support and co ordination of transition of care 07/20/2021 07/26/2022 Overview: Facility: [facility] Date of admission 07/14/2021 Date of discharge Prehospital work-up: Presented to 07/14/2021 to [facility] ED complaining of left-sided abdominal pain with multiple symptoms including cough, myalgias, nasal congestion, low dietary intake due to concerns that would aggravate stomach ache. Patient was exposed to Covid 2 weeks prior, unvaccinated. Vital signs: 98.3 I-[id number]/102-93% RA. Exam description: Tired, alert and nontoxic, normal respiratory effort, mild tenderness left upper quadrant without rebound or guarding. WBC 20.3-Hgb 14-HCT 43-PLT 388-Ig percent 0.5-absolute neutrophil 17 point 3H Lactic acid 1.2. Sodium 131-K3.8-CL 95-CO2 29.0, glucose 133, otherwise CMP is within normal limits. Calcium 9.1. Liver panel: Total bili 1.10H-AST 180-ALT 95-ALP 126-total protein 8.3-Albumin three-point 3-5 and 50.0-lipase 74. 07/14/2021 CT abdomen pelvis: Dilated main and bilateral pulmonary arteries suggesting pulmonary hypertension, moderate volume right pleural effusion with compressive atelectasis at right lower lobe, moderate cardiomegaly with dilated right ventricle and reflux of contrast in IVC suggesting right heart dysfunction. Heterogenous enhancement and decreased density of the left kidney new since CTA on 01/03/2014- may represent renal ischemia/infarction versus pyelonephritis, neoplasm not ruled out. 2.9 superior and lateral left renal cyst with delayed peripheral nodular enhancement suspicious for cystic renal neoplasm, MRI/CT with IV contrast recommended. Splenic infarction, given left renal and splenic infarctions embolic etiology should be considered. Patient was given IV fluids due to tachycardia, patient's anticoagulants were held for thoracentesis, so there were concerns about possible pulmonary emboli, CT was therefore ordered with negative findings. Case was discussed with hospitalist and decision to admit Patient was admitted under Dr. Maddie Nascimento: Acute problem list and plan: 1. Acute hypoxic respiratory failure secondary right-sided pleural effusion with decompensated RV dysfunction, elevated leukocytosis with recent hospitalization could have concurrent pneumonia: We will check strep pneumo, Legionella antigens, flu, RSV, thoracentesis ordered with fluid studies, O2 as needed, continue aerosol, leukocytosis coverage ordered with IV antibiotics. 2. Splenic/renal infarct: Suspected to be related to subtherapeutic INR and atrial fibrillation, heparin drip was started, patient had prior complications with Xarelto, has been on Coumadin but consider trial of Eliquis as an alternative. Echocardiogram ordered. 3. Leukocytosis: Cultures were ordered, empiric antibiotics, lactic acid normal. 4. Recurrent right-sided pleural effusion: May be related to pulmonary artery hypertension, CT shows marked dilatation of central vasculature without PE, echocardiogram ordered. Started on Lasix drip. 5. Decompensated right-sided heart failure: Lasix drip started, follow BMP, sodium restriction, consider right-sided heart cath, pulmonary medicine consult. 6. Cystic renal mass: Concerning for malignancy, abdominal MRI ordered, consult urology 7. PAF: Current atrial fibrillation, heparin drip started, again echocardiogram ordered to check for embolic sources, diltiazem and metoprolol continued. 8. GERD: Continue omeprazole 9. DVT prophylaxis: Heparin drip CODE STATUS: DNR CCA without intubation 07/14/[address] Malika Jain neurologist: increasing left upper quadrant and flank pain, atypical left renal cyst. Assessment and plan: Right renal cyst, renal infarction: No plans for intervention of 3 cm suspicious lesion during this admission, felt he could be done outpatient. 07/15/2021 consultation open soaper tender Dr. Dwayne Garcia: Assessment right pleural effusion: Continue diuretic therapy, empiric antimicrobials, thoracentesis recommended, eventual right heart cath work and secondary work-up for pH outpatient basis. 07/15/2021 echocardiogram: LV size and LV SF WNL, EF 60 to 65%. RV normal size and RV SF EF. Left atrium moderately enlarged, right atrium mildly enlarged. MV: Moderate mitral annular calcification, 1-2+ MA. TV: Normal. AV: Diffuse aortic valve calcification. PV: Not well visualized. Great vessels and aortic root normal. No pericardial effusion. No significant changes from prior echo. 07/15/2021 MR abdomen with and without IV contrast: Large right pleural effusion, moderate cardiomegaly, distended inferior vena cava and hepatic veins indicative of right-sided heart failure. Scarring of spleen related to old ischemia trauma, multiple nonenhancing lesions in the left kidney identified with contrast which may be related to inflammatory or infectious process 07/16/2021: Ultrasound-guided thoracentesis Dr. Gary Reyes: 670 mL of blood-tinged cloudy fluid drained and sent for analysis Chest x-ray following: Status post right thoracentesis no evidence of hemothorax, residual blunting of right costophrenic angle. Pertinent lab summary: 07/14/2021 blood cultures x2 sites showed no growth over 5 days. Urine clean catch for Legionella and Streptococcus pneumonia both negative. Nasal swab for rapid RSV and influenza as well as SARS Covid-2 all negative. 07/22/2021 WBC 10.2-Hgb 12.1-HCT 37-PLT 338. Chemistries: NA 136-K4.3-CL 102-CO2 30-BUN 14-CRE 0.94-GLU 90 Discharge weight 59.1 kg, BMI 26.4 Hospital course: Hospital course: Noted to be hypoxic 88% on arrival, CT showed moderate right pleural effusion with compressive atelectasis. In addition patient was found to have left renal infarct as well as splenic infarcts which were considered to be embolic. Patient's INR was subtherapeutic on the arrival. Thoracentesis as above, cytology was negative for malignancy, concern possibly due to rheumatoid arthritis. Patient is to have follow-up with pulmonology and wants to transfer care to Dr. Mariee. She did develop atrial fib with rapid ventricular rate during the hospital course, which was treated temporarily with diltiazem drip, metoprolol was increased from 25 100 mg twice daily and amiodarone 200 mg twice daily was added with successful rate control. New medications: Discharge planning follow-up: Acute respiratory failure with hypoxia Acute exacerbation chronic pleural effusion Right splenic infarct Decompensated HFpEF Cystic renal mass Paroxysmal atrial fibrillation Leukocytosis Status post thoracentesis Mitral valve annular calcification, 1-2+ insufficiency stable Aortic valve diffuse calcification stable COPD Hypertension Subtherapeutic INR due to holding Coumadin for thoracentesis Medication reconciliation: Metoprolol tartrate 100 mg p.o. twice daily #60/0 Amiodarone 200 mg p.o. twice daily #60/0 Change medications: Warfarin 4 mg p.o. daily Discontinued medications: Warfarin 2 mg Metoprolol tartrate 75 mg p.o. twice daily Continue medications: Multivitamin 1 tablet daily Calcium carbonate 600 mg (1500 mg) tablet 1 p.o. daily Furosemide 40 mg p.o. twice daily Handicap placard Albuterol sulfate 90 MCG per actuation HFA inhaler: 2 puffs every 4 hours as needed shortness of breath Omeprazole 40 mg capsule daily AC Potassium chloride 20 mEq ER: 1 tablet twice daily Diltiazem 2040 mg capsule extended release 24-hour: 1 capsule daily Referral/follow-up: Dr. Flaquito Mariee pulmonology 2 weeks Hypokalemia 07/09/2021 11/08/2022 Hyponatremia 07/09/2021 11/08/2022 Hypoxemia 06/23/2021 11/08/2022 Hypoxia 06/23/2021 11/08/2022 Pleural effusion, right 05/05/20200 11/2022 Overview: Now seeing Dr. Mariee Thoracic aorta atherosclerosis 03/23/2020 09/23/2020 Chronic systolic heart failure 11/21/2019 09/23/2020 Fatigue 11/24/2016 10/10/2017 Atrial fibrillation 01/14/2014 10/11/19 Centrilobular emphysema 01/14/201411/2022 Multiple thyroid nodules 03/03/2011 Hypertension 01/19/2011 06/23/2015 Esophagitis, unspecified 01/13/200901/2018 Gastrointestinal malfunction arising from mental factors 12/09/2008 10/10/2017 Nontoxic multinodular goiter 12/08/2008 05/08/2018 Dysphagia, unspecified(787.20) 05/08/2018 documented as of this encounter (statuses as of 02/21/2023) [facility]04-17-2023 History of Past illness Narrative* Problem Noted Date Diagnosed Date Resolved Date Deviation of international n ormalized ratio (INR) from target range 09/19/2022 11/08/2022 History of surgical procedure 09/19/2022 11/08/2022 Renal infarct 04/19/2022 07/26/2022 Overview: Has seen Dr. Chaney. Needs to just follow up prn. Dehydration 02/03/2022 11/08/2022 Gram-negative bacteremia 02/03/202211/2022 Hypophosphatemia 02/03/2022 11/08/2022 Pneumonia 02/03/2022 11/08/2022 Pyothorax without fistula 02/03/2022 Pleural effusion 01/31/2022 04/19/2022 Abnormal levels of other serum enzymes 11/11/2021 11/08/2022 Elevated liver enzymes 11/11/202111/08 Neoplasm of uncertain behavior of left kidney 09/24/19 22 11/08/2022 Shortness of breath 09/16/2021 11/09/19 23 Acute respiratory failure 07/22/2021 Chronic passive congestion of liver 07/22/2021 11/08/2022 Cyst of kidney, acquired 07/22/202111/2022 Ischemia and infarction of kidney 07/22/2021 11/08/2022 Overview: Has seen Dr Calvin Leukocytosis 07/22/2021 11/08/2022 Encounter for support and co ordination of transition of care 07/20/2021 07/26/2022 Overview: Facility: [facility] Date of admission 07/14/2021 Date of discharge Prehospital work-up: Presented to 07/14/2021 to [facility] ED complaining of left-sided abdominal pain with multiple symptoms including cough, myalgias, nasal congestion, low dietary intake due to concerns that would aggravate stomach ache. Patient was exposed to Covid 2 weeks prior, unvaccinated. Vital signs: 98.3 I-[id number]/102-93% RA. Exam description: Tired, alert and nontoxic, normal respiratory effort, mild tenderness left upper quadrant without rebound or guarding. WBC 20.3-Hgb 14-HCT 43-PLT 388-Ig percent 0.5-absolute neutrophil 17 point 3H Lactic acid 1.2. Sodium 131-K3.8-CL 95-CO2 29.0, glucose 133, otherwise CMP is within normal limits. Calcium 9.1. Liver panel: Total bili 1.10H-AST 180-ALT 95-ALP 126-total protein 8.3-Albumin three-point 3-5 and 50.0-lipase 74. 07/14/2021 CT abdomen pelvis: Dilated main and bilateral pulmonary arteries suggesting pulmonary hypertension, moderate volume right pleural effusion with compressive atelectasis at right lower lobe, moderate cardiomegaly with dilated right ventricle and reflux of contrast in IVC suggesting right heart dysfunction. Heterogenous enhancement and decreased density of the left kidney new since CTA on 01/03/2014- may represent renal ischemia/infarction versus pyelonephritis, neoplasm not ruled out. 2.9 superior and lateral left renal cyst with delayed peripheral nodular enhancement suspicious for cystic renal neoplasm, MRI/CT with IV contrast recommended. Splenic infarction, given left renal and splenic infarctions embolic etiology should be considered. Patient was given IV fluids due to tachycardia, patient's anticoagulants were held for thoracentesis, so there were concerns about possible pulmonary emboli, CT was therefore ordered with negative findings. Case was discussed with hospitalist and decision to admit Patient was admitted under Dr. Maddie Nascimento: Acute problem list and plan: 1. Acute hypoxic respiratory failure secondary right-sided pleural effusion with decompensated RV dysfunction, elevated leukocytosis with recent hospitalization could have concurrent pneumonia: We will check strep pneumo, Legionella antigens, flu, RSV, thoracentesis ordered with fluid studies, O2 as needed, continue aerosol, leukocytosis coverage ordered with IV antibiotics. 2. Splenic/renal infarct: Suspected to be related to subtherapeutic INR and atrial fibrillation, heparin drip was started, patient had prior complications with Xarelto, has been on Coumadin but consider trial of Eliquis as an alternative. Echocardiogram ordered. 3. Leukocytosis: Cultures were ordered, empiric antibiotics, lactic acid normal. 4. Recurrent right-sided pleural effusion: May be related to pulmonary artery hypertension, CT shows marked dilatation of central vasculature without PE, echocardiogram ordered. Started on Lasix drip. 5. Decompensated right-sided heart failure: Lasix drip started, follow BMP, sodium restriction, consider right-sided heart cath, pulmonary medicine consult. 6. Cystic renal mass: Concerning for malignancy, abdominal MRI ordered, consult urology 7. PAF: Current atrial fibrillation, heparin drip started, again echocardiogram ordered to check for embolic sources, diltiazem and metoprolol continued. 8. GERD: Continue omeprazole 9. DVT prophylaxis: Heparin drip CODE STATUS: DNR CCA without intubation 07/14/[address] Malika Jain neurologist: increasing left upper quadrant and flank pain, atypical left renal cyst. Assessment and plan: Right renal cyst, renal infarction: No plans for intervention of 3 cm suspicious lesion during this admission, felt he could be done outpatient. 07/15/2021 consultation open soaper tender Dr. Dwayne Garcia: Assessment right pleural effusion: Continue diuretic therapy, empiric antimicrobials, thoracentesis recommended, eventual right heart cath work and secondary work-up for pH outpatient basis. 07/15/2021 echocardiogram: LV size and LV SF WNL, EF 60 to 65%. RV normal size and RV SF EF. Left atrium moderately enlarged, right atrium mildly enlarged. MV: Moderate mitral annular calcification, 1-2+ MA. TV: Normal. AV: Diffuse aortic valve calcification. PV: Not well visualized. Great vessels and aortic root normal. No pericardial effusion. No significant changes from prior echo. 07/15/2021 MR abdomen with and without IV contrast: Large right pleural effusion, moderate cardiomegaly, distended inferior vena cava and hepatic veins indicative of right-sided heart failure. Scarring of spleen related to old ischemia trauma, multiple nonenhancing lesions in the left kidney identified with contrast which may be related to inflammatory or infectious process 07/16/2021: Ultrasound-guided thoracentesis Dr. Gary Reyes: 670 mL of blood-tinged cloudy fluid drained and sent for analysis Chest x-ray following: Status post right thoracentesis no evidence of hemothorax, residual blunting of right costophrenic angle. Pertinent lab summary: 07/14/2021 blood cultures x2 sites showed no growth over 5 days. Urine clean catch for Legionella and Streptococcus pneumonia both negative. Nasal swab for rapid RSV and influenza as well as SARS Covid-2 all negative. 07/22/2021 WBC 10.2-Hgb 12.1-HCT 37-PLT 338. Chemistries: NA 136-K4.3-CL 102-CO2 30-BUN 14-CRE 0.94-GLU 90 Discharge weight 59.1 kg, BMI 26.4 Hospital course: Hospital course: Noted to be hypoxic 88% on arrival, CT showed moderate right pleural effusion with compressive atelectasis. In addition patient was found to have left renal infarct as well as splenic infarcts which were considered to be embolic. Patient's INR was subtherapeutic on the arrival. Thoracentesis as above, cytology was negative for malignancy, concern possibly due to rheumatoid arthritis. Patient is to have follow-up with pulmonology and wants to transfer care to Dr. Mariee. She did develop atrial fib with rapid ventricular rate during the hospital course, which was treated temporarily with diltiazem drip, metoprolol was increased from 25 100 mg twice daily and amiodarone 200 mg twice daily was added with successful rate control. New medications: Discharge planning follow-up: Acute respiratory failure with hypoxia Acute exacerbation chronic pleural effusion Right splenic infarct Decompensated HFpEF Cystic renal mass Paroxysmal atrial fibrillation Leukocytosis Status post thoracentesis Mitral valve annular calcification, 1-2+ insufficiency stable Aortic valve diffuse calcification stable COPD Hypertension Subtherapeutic INR due to holding Coumadin for thoracentesis Medication reconciliation: Metoprolol tartrate 100 mg p.o. twice daily #60/0 Amiodarone 200 mg p.o. twice daily #60/0 Change medications: Warfarin 4 mg p.o. daily Discontinued medications: Warfarin 2 mg Metoprolol tartrate 75 mg p.o. twice daily Continue medications: Multivitamin 1 tablet daily Calcium carbonate 600 mg (1500 mg) tablet 1 p.o. daily Furosemide 40 mg p.o. twice daily Handicap placard Albuterol sulfate 90 MCG per actuation HFA inhaler: 2 puffs every 4 hours as needed shortness of breath Omeprazole 40 mg capsule daily AC Potassium chloride 20 mEq ER: 1 tablet twice daily Diltiazem 2040 mg capsule extended release 24-hour: 1 capsule daily Referral/follow-up: Dr. Flaquito Mariee pulmonology 2 weeks Hypokalemia 07/09/2021 11/08/2022 Hyponatremia 07/09/2021 11/08/2022 Hypoxemia 06/23/2021 11/08/2022 Hypoxia 06/23/2021 11/08/2022 Pleural effusion, right 05/05/202011/2022 Overview: Now seeing Dr. Mariee Thoracic aorta atherosclerosis 03/23/2020 09/23/2020 Chronic systolic heart failure 11/21/2019 09/23/2020 Fatigue 11/24/2016 10/10/2017 Atrial fibrillation 01/14/2014 10/11/19 18 Centrilobular emphysema 01/14/201411/2022 Multiple thyroid nodules 03/03/2011 Hypertension 01/19/2011 06/23/2015 Esophagitis, unspecified 01/13/200901/2018 Gastrointestinal malfunction arising from mental factors 12/09/2008 10/10/2017 Nontoxic multinodular goiter 12/08/2008 05/08/2018 Dysphagia, unspecified(787.20) 05/08/2018 documented as of this encounter (statuses as of 02/22/2023) [facility]04-17-2023 History of Past illness Narrative* Problem Noted Date Diagnosed Date Resolved Date Deviation of international n ormalized ratio (INR) from target range 09/19/2022 11/08/2022 History of surgical procedure 09/19/2022 11/08/2022 Renal infarct 04/19/2022 07/26/2022 Overview: Has seen Dr. Chaney. Needs to just follow up prn. Dehydration 02/03/2022 11/08/2022 Gram-negative bacteremia 02/03/202211/2022 Hypophosphatemia 02/03/2022 11/08/2022 Pneumonia 02/03/2022 11/08/2022 Pyothorax without fistula 02/03/2022 Pleural effusion 01/31/2022 04/19/2022 Abnormal levels of other serum enzymes 11/11/2021 11/08/2022 Elevated liver enzymes 11/11/202111/08 Neoplasm of uncertain behavior of left kidney 09/24/19 22 11/08/2022 Shortness of breath 09/16/2021 11/09/19 23 Acute respiratory failure 07/22/2021 Chronic passive congestion of liver 07/22/2021 11/08/2022 Cyst of kidney, acquired 07/22/202111/2022 Ischemia and infarction of kidney 07/22/2021 11/08/2022 Overview: Has seen Dr Calvin Leukocytosis 07/22/2021 11/08/2022 Encounter for support and co ordination of transition of care 07/20/2021 07/26/2022 Overview: Facility: [facility] Date of admission 07/14/2021 Date of discharge Prehospital work-up: Presented to 07/14/2021 to [facility] ED complaining of left-sided abdominal pain with multiple symptoms including cough, myalgias, nasal congestion, low dietary intake due to concerns that would aggravate stomach ache. Patient was exposed to Covid 2 weeks prior, unvaccinated. Vital signs: 98.3 N-[id number]/102-93% RA. Exam description: Tired, alert and nontoxic, normal respiratory effort, mild tenderness left upper quadrant without rebound or guarding. WBC 20.3-Hgb 14-HCT 43-PLT 388-Ig percent 0.5-absolute neutrophil 17 point 3H Lactic acid 1.2. Sodium 131-K3.8-CL 95-CO2 29.0, glucose 133, otherwise CMP is within normal limits. Calcium 9.1. Liver panel: Total bili 1.10H-AST 180-ALT 95-ALP 126-total protein 8.3-Albumin three-point 3-5 and 50.0-lipase 74. 07/14/2021 CT abdomen pelvis: Dilated main and bilateral pulmonary arteries suggesting pulmonary hypertension, moderate volume right pleural effusion with compressive atelectasis at right lower lobe, moderate cardiomegaly with dilated right ventricle and reflux of contrast in IVC suggesting right heart dysfunction. Heterogenous enhancement and decreased density of the left kidney new since CTA on 01/03/2014- may represent renal ischemia/infarction versus pyelonephritis, neoplasm not ruled out. 2.9 superior and lateral left renal cyst with delayed peripheral nodular enhancement suspicious for cystic renal neoplasm, MRI/CT with IV contrast recommended. Splenic infarction, given left renal and splenic infarctions embolic etiology should be considered. Patient was given IV fluids due to tachycardia, patient's anticoagulants were held for thoracentesis, so there were concerns about possible pulmonary emboli, CT was therefore ordered with negative findings. Case was discussed with hospitalist and decision to admit Patient was admitted under Dr. Maddie Nascimento: Acute problem list and plan: 1. Acute hypoxic respiratory failure secondary right-sided pleural effusion with decompensated RV dysfunction, elevated leukocytosis with recent hospitalization could have concurrent pneumonia: We will check strep pneumo, Legionella antigens, flu, RSV, thoracentesis ordered with fluid studies, O2 as needed, continue aerosol, leukocytosis coverage ordered with IV antibiotics. 2. Splenic/renal infarct: Suspected to be related to subtherapeutic INR and atrial fibrillation, heparin drip was started, patient had prior complications with Xarelto, has been on Coumadin but consider trial of Eliquis as an alternative. Echocardiogram ordered. 3. Leukocytosis: Cultures were ordered, empiric antibiotics, lactic acid normal. 4. Recurrent right-sided pleural effusion: May be related to pulmonary artery hypertension, CT shows marked dilatation of central vasculature without PE, echocardiogram ordered. Started on Lasix drip. 5. Decompensated right-sided heart failure: Lasix drip started, follow BMP, sodium restriction, consider right-sided heart cath, pulmonary medicine consult. 6. Cystic renal mass: Concerning for malignancy, abdominal MRI ordered, consult urology 7. PAF: Current atrial fibrillation, heparin drip started, again echocardiogram ordered to check for embolic sources, diltiazem and metoprolol continued. 8. GERD: Continue omeprazole 9. DVT prophylaxis: Heparin drip CODE STATUS: DNR CCA without intubation 07/14/[address] Malika Jain neurologist: increasing left upper quadrant and flank pain, atypical left renal cyst. Assessment and plan: Right renal cyst, renal infarction: No plans for intervention of 3 cm suspicious lesion during this admission, felt he could be done outpatient. 07/15/2021 consultation open soaper tender Dr. Dwayne Garcia: Assessment right pleural effusion: Continue diuretic therapy, empiric antimicrobials, thoracentesis recommended, eventual right heart cath work and secondary work-up for pH outpatient basis. 07/15/2021 echocardiogram: LV size and LV SF WNL, EF 60 to 65%. RV normal size and RV SF EF. Left atrium moderately enlarged, right atrium mildly enlarged. MV: Moderate mitral annular calcification, 1-2+ MA. TV: Normal. AV: Diffuse aortic valve calcification. PV: Not well visualized. Great vessels and aortic root normal. No pericardial effusion. No significant changes from prior echo. 07/15/2021 MR abdomen with and without IV contrast: Large right pleural effusion, moderate cardiomegaly, distended inferior vena cava and hepatic veins indicative of right-sided heart failure. Scarring of spleen related to old ischemia trauma, multiple nonenhancing lesions in the left kidney identified with contrast which may be related to inflammatory or infectious process 07/16/2021: Ultrasound-guided thoracentesis Dr. Gary Reyes: 670 mL of blood-tinged cloudy fluid drained and sent for analysis Chest x-ray following: Status post right thoracentesis no evidence of hemothorax, residual blunting of right costophrenic angle. Pertinent lab summary: 07/14/2021 blood cultures x2 sites showed no growth over 5 days. Urine clean catch for Legionella and Streptococcus pneumonia both negative. Nasal swab for rapid RSV and influenza as well as SARS Covid-2 all negative. 07/22/2021 WBC 10.2-Hgb 12.1-HCT 37-PLT 338. Chemistries: NA 136-K4.3-CL 102-CO2 30-BUN 14-CRE 0.94-GLU 90 Discharge weight 59.1 kg, BMI 26.4 Hospital course: Hospital course: Noted to be hypoxic 88% on arrival, CT showed moderate right pleural effusion with compressive atelectasis. In addition patient was found to have left renal infarct as well as splenic infarcts which were considered to be embolic. Patient's INR was subtherapeutic on the arrival. Thoracentesis as above, cytology was negative for malignancy, concern possibly due to rheumatoid arthritis. Patient is to have follow-up with pulmonology and wants to transfer care to Dr. Mariee. She did develop atrial fib with rapid ventricular rate during the hospital course, which was treated temporarily with diltiazem drip, metoprolol was increased from 25 100 mg twice daily and amiodarone 200 mg twice daily was added with successful rate control. New medications: Discharge planning follow-up: Acute respiratory failure with hypoxia Acute exacerbation chronic pleural effusion Right splenic infarct Decompensated HFpEF Cystic renal mass Paroxysmal atrial fibrillation Leukocytosis Status post thoracentesis Mitral valve annular calcification, 1-2+ insufficiency stable Aortic valve diffuse calcification stable COPD Hypertension Subtherapeutic INR due to holding Coumadin for thoracentesis Medication reconciliation: Metoprolol tartrate 100 mg p.o. twice daily #60/0 Amiodarone 200 mg p.o. twice daily #60/0 Change medications: Warfarin 4 mg p.o. daily Discontinued medications: Warfarin 2 mg Metoprolol tartrate 75 mg p.o. twice daily Continue medications: Multivitamin 1 tablet daily Calcium carbonate 600 mg (1500 mg) tablet 1 p.o. daily Furosemide 40 mg p.o. twice daily Handicap placard Albuterol sulfate 90 MCG per actuation HFA inhaler: 2 puffs every 4 hours as needed shortness of breath Omeprazole 40 mg capsule daily AC Potassium chloride 20 mEq ER: 1 tablet twice daily Diltiazem 2040 mg capsule extended release 24-hour: 1 capsule daily Referral/follow-up: Dr. Flaquito Mariee pulmonology 2 weeks Hypokalemia 07/09/2021 11/08/2022 Hyponatremia 07/09/2021 11/08/2022 Hypoxemia 06/23/2021 11/08/2022 Hypoxia 06/23/2021 11/08/2022 Pleural effusion, right 05/05/20200 11/2022 Overview: Now seeing Dr. Mariee Thoracic aorta atherosclerosis 03/23/2020 09/23/2020 Chronic systolic heart failure 11/21/2019 09/23/2020 Fatigue 11/24/2016 10/10/2017 Atrial fibrillation 01/14/2014 10/11/19 Centrilobular emphysema 01/14/201411/2022 Multiple thyroid nodules 03/03/2011 Hypertension 01/19/2011 06/23/2015 Esophagitis, unspecified 01/13/200901/2018 Gastrointestinal malfunction arising from mental factors 12/09/2008 10/10/2017 Nontoxic multinodular goiter 12/08/2008 05/08/2018 Dysphagia, unspecified(787.20) 05/08/2018 documented as of this encounter (statuses as of 02/24/2023) [facility]04-17-2023 History of Past illness Narrative* Problem Noted Date Diagnosed Date Resolved Date Deviation of international n ormalized ratio (INR) from target range 09/19/2022 11/08/2022 History of surgical procedure 09/19/2022 11/08/2022 Renal infarct 04/19/2022 07/26/2022 Overview: Has seen Dr. Chaney. Needs to just follow up prn. Dehydration 02/03/2022 11/08/2022 Gram-negative bacteremia 02/03/202211/2022 Hypophosphatemia 02/03/2022 11/08/2022 Pneumonia 02/03/2022 11/08/2022 Pyothorax without fistula 02/03/2022 Pleural effusion 01/31/2022 04/19/2022 Abnormal levels of other serum enzymes 11/11/2021 11/08/2022 Elevated liver enzymes 11/11/202111/08 Neoplasm of uncertain behavior of left kidney 09/24/19 22 11/08/2022 Shortness of breath 09/16/2021 11/09/19 23 Acute respiratory failure 07/22/2021 Chronic passive congestion of liver 07/22/2021 11/08/2022 Cyst of kidney, acquired 07/22/202111/2022 Ischemia and infarction of kidney 07/22/2021 11/08/2022 Overview: Has seen Dr Calvin Leukocytosis 07/22/2021 11/08/2022 Encounter for support and co ordination of transition of care 07/20/2021 07/26/2022 Overview: Facility: [facility] Date of admission 07/14/2021 Date of discharge Prehospital work-up: Presented to 07/14/2021 to [facility] ED complaining of left-sided abdominal pain with multiple symptoms including cough, myalgias, nasal congestion, low dietary intake due to concerns that would aggravate stomach ache. Patient was exposed to Covid 2 weeks prior, unvaccinated. Vital signs: 98.3 T-214-35-143/102-93% RA. Exam description: Tired, alert and nontoxic, normal respiratory effort, mild tenderness left upper quadrant without rebound or guarding. WBC 20.3-Hgb 14-HCT 43-PLT 388-Ig percent 0.5-absolute neutrophil 17 point 3H Lactic acid 1.2. Sodium 131-K3.8-CL 95-CO2 29.0, glucose 133, otherwise CMP is within normal limits. Calcium 9.1. Liver panel: Total bili 1.10H-AST 180-ALT 95-ALP 126-total protein 8.3-Albumin three-point 3-5 and 50.0-lipase 74. 07/14/2021 CT abdomen pelvis: Dilated main and bilateral pulmonary arteries suggesting pulmonary hypertension, moderate volume right pleural effusion with compressive atelectasis at right lower lobe, moderate cardiomegaly with dilated right ventricle and reflux of contrast in IVC suggesting right heart dysfunction. Heterogenous enhancement and decreased density of the left kidney new since CTA on 01/03/2014- may represent renal ischemia/infarction versus pyelonephritis, neoplasm not ruled out. 2.9 superior and lateral left renal cyst with delayed peripheral nodular enhancement suspicious for cystic renal neoplasm, MRI/CT with IV contrast recommended. Splenic infarction, given left renal and splenic infarctions embolic etiology should be considered. Patient was given IV fluids due to tachycardia, patient's anticoagulants were held for thoracentesis, so there were concerns about possible pulmonary emboli, CT was therefore ordered with negative findings. Case was discussed with hospitalist and decision to admit Patient was admitted under Dr. Maddie Nascimento: Acute problem list and plan: 1. Acute hypoxic respiratory failure secondary right-sided pleural effusion with decompensated RV dysfunction, elevated leukocytosis with recent hospitalization could have concurrent pneumonia: We will check strep pneumo, Legionella antigens, flu, RSV, thoracentesis ordered with fluid studies, O2 as needed, continue aerosol, leukocytosis coverage ordered with IV antibiotics. 2. Splenic/renal infarct: Suspected to be related to subtherapeutic INR and atrial fibrillation, heparin drip was started, patient had prior complications with Xarelto, has been on Coumadin but consider trial of Eliquis as an alternative. Echocardiogram ordered. 3. Leukocytosis: Cultures were ordered, empiric antibiotics, lactic acid normal. 4. Recurrent right-sided pleural effusion: May be related to pulmonary artery hypertension, CT shows marked dilatation of central vasculature without PE, echocardiogram ordered. Started on Lasix drip. 5. Decompensated right-sided heart failure: Lasix drip started, follow BMP, sodium restriction, consider right-sided heart cath, pulmonary medicine consult. 6. Cystic renal mass: Concerning for malignancy, abdominal MRI ordered, consult urology 7. PAF: Current atrial fibrillation, heparin drip started, again echocardiogram ordered to check for embolic sources, diltiazem and metoprolol continued. 8. GERD: Continue omeprazole 9. DVT prophylaxis: Heparin drip CODE STATUS: DNR CCA without intubation 07/14/[address] Malika Jain neurologist: increasing left upper quadrant and flank pain, atypical left renal cyst. Assessment and plan: Right renal cyst, renal infarction: No plans for intervention of 3 cm suspicious lesion during this admission, felt he could be done outpatient. 07/15/2021 consultation open soaper tender Dr. Dwayne Garcia: Assessment right pleural effusion: Continue diuretic therapy, empiric antimicrobials, thoracentesis recommended, eventual right heart cath work and secondary work-up for pH outpatient basis. 07/15/2021 echocardiogram: LV size and LV SF WNL, EF 60 to 65%. RV normal size and RV SF EF. Left atrium moderately enlarged, right atrium mildly enlarged. MV: Moderate mitral annular calcification, 1-2+ MA. TV: Normal. AV: Diffuse aortic valve calcification. PV: Not well visualized. Great vessels and aortic root normal. No pericardial effusion. No significant changes from prior echo. 07/15/2021 MR abdomen with and without IV contrast: Large right pleural effusion, moderate cardiomegaly, distended inferior vena cava and hepatic veins indicative of right-sided heart failure. Scarring of spleen related to old ischemia trauma, multiple nonenhancing lesions in the left kidney identified with contrast which may be related to inflammatory or infectious process 07/16/2021: Ultrasound-guided thoracentesis Dr. Gary Reyes: 670 mL of blood-tinged cloudy fluid drained and sent for analysis Chest x-ray following: Status post right thoracentesis no evidence of hemothorax, residual blunting of right costophrenic angle. Pertinent lab summary: 07/14/2021 blood cultures x2 sites showed no growth over 5 days. Urine clean catch for Legionella and Streptococcus pneumonia both negative. Nasal swab for rapid RSV and influenza as well as SARS Covid-2 all negative. 07/22/2021 WBC 10.2-Hgb 12.1-HCT 37-PLT 338. Chemistries: NA 136-K4.3-CL 102-CO2 30-BUN 14-CRE 0.94-GLU 90 Discharge weight 59.1 kg, BMI 26.4 Hospital course: Hospital course: Noted to be hypoxic 88% on arrival, CT showed moderate right pleural effusion with compressive atelectasis. In addition patient was found to have left renal infarct as well as splenic infarcts which were considered to be embolic. Patient's INR was subtherapeutic on the arrival. Thoracentesis as above, cytology was negative for malignancy, concern possibly due to rheumatoid arthritis. Patient is to have follow-up with pulmonology and wants to transfer care to Dr. Mariee. She did develop atrial fib with rapid ventricular rate during the hospital course, which was treated temporarily with diltiazem drip, metoprolol was increased from 25 100 mg twice daily and amiodarone 200 mg twice daily was added with successful rate control. New medications: Discharge planning follow-up: Acute respiratory failure with hypoxia Acute exacerbation chronic pleural effusion Right splenic infarct Decompensated HFpEF Cystic renal mass Paroxysmal atrial fibrillation Leukocytosis Status post thoracentesis Mitral valve annular calcification, 1-2+ insufficiency stable Aortic valve diffuse calcification stable COPD Hypertension Subtherapeutic INR due to holding Coumadin for thoracentesis Medication reconciliation: Metoprolol tartrate 100 mg p.o. twice daily #60/0 Amiodarone 200 mg p.o. twice daily #60/0 Change medications: Warfarin 4 mg p.o. daily Discontinued medications: Warfarin 2 mg Metoprolol tartrate 75 mg p.o. twice daily Continue medications: Multivitamin 1 tablet daily Calcium carbonate 600 mg (1500 mg) tablet 1 p.o. daily Furosemide 40 mg p.o. twice daily Handicap placard Albuterol sulfate 90 MCG per actuation HFA inhaler: 2 puffs every 4 hours as needed shortness of breath Omeprazole 40 mg capsule daily AC Potassium chloride 20 mEq ER: 1 tablet twice daily Diltiazem 2040 mg capsule extended release 24-hour: 1 capsule daily Referral/follow-up: Dr. Flaquito Mariee pulmonology 2 weeks Hypokalemia 07/09/2021 11/08/2022 Hyponatremia 07/09/2021 11/08/2022 Hypoxemia 06/23/2021 11/08/2022 Hypoxia 06/23/2021 11/08/2022 Pleural effusion, right 05/05/202011/2022 Overview: Now seeing Dr. Mariee Thoracic aorta atherosclerosis 03/23/2020 09/23/2020 Chronic systolic heart failure 11/21/2019 09/23/2020 Fatigue 11/24/2016 10/10/2017 Atrial fibrillation 01/14/2014 10/11/19 18 Centrilobular emphysema 01/14/201411/2022 Multiple thyroid nodules 03/03/2011 Hypertension 01/19/2011 06/23/2015 Esophagitis, unspecified 01/13/200901/2018 Gastrointestinal malfunction arising from mental factors 12/09/2008 10/10/2017 Nontoxic multinodular goiter 12/08/2008 05/08/2018 Dysphagia, unspecified(787.20) 05/08/2018 documented as of this encounter (statuses as of 02/28/2023) [facility]04-17-2023 History of Past illness Narrative* Problem Noted Date Diagnosed Date Resolved Date Deviation of international n ormalized ratio (INR) from target range 09/19/2022 11/08/2022 History of surgical procedure 09/19/2022 11/08/2022 Renal infarct 04/19/2022 07/26/2022 Overview: Has seen Dr. Chaney. Needs to just follow up prn. Dehydration 02/03/2022 11/08/2022 Gram-negative bacteremia 02/03/202211/2022 Hypophosphatemia 02/03/2022 11/08/2022 Pneumonia 02/03/2022 11/08/2022 Pyothorax without fistula 02/03/2022 Pleural effusion 01/31/2022 04/19/2022 Abnormal levels of other serum enzymes 11/11/2021 11/08/2022 Elevated liver enzymes 11/11/202111/08 Neoplasm of uncertain behavior of left kidney 09/24/19 22 11/08/2022 Shortness of breath 09/16/2021 11/09/19 Acute respiratory failure 07/22/2021 Chronic passive congestion of liver 07/22/2021 11/08/2022 Cyst of kidney, acquired 07/22/202111/2022 Ischemia and infarction of kidney 07/22/2021 11/08/2022 Overview: Has seen Dr Calvin Leukocytosis 07/22/2021 11/08/2022 Encounter for support and co ordination of transition of care 07/20/2021 07/26/2022 Overview: Facility: [facility] Date of admission 07/14/2021 Date of discharge Prehospital work-up: Presented to 07/14/2021 to [facility] ED complaining of left-sided abdominal pain with multiple symptoms including cough, myalgias, nasal congestion, low dietary intake due to concerns that would aggravate stomach ache. Patient was exposed to Covid 2 weeks prior, unvaccinated. Vital signs: 98.3 J-280-87-143/102-93% RA. Exam description: Tired, alert and nontoxic, normal respiratory effort, mild tenderness left upper quadrant without rebound or guarding. WBC 20.3-Hgb 14-HCT 43-PLT 388-Ig percent 0.5-absolute neutrophil 17 point 3H Lactic acid 1.2. Sodium 131-K3.8-CL 95-CO2 29.0, glucose 133, otherwise CMP is within normal limits. Calcium 9.1. Liver panel: Total bili 1.10H-AST 180-ALT 95-ALP 126-total protein 8.3-Albumin three-point 3-5 and 50.0-lipase 74. 07/14/2021 CT abdomen pelvis: Dilated main and bilateral pulmonary arteries suggesting pulmonary hypertension, moderate volume right pleural effusion with compressive atelectasis at right lower lobe, moderate cardiomegaly with dilated right ventricle and reflux of contrast in IVC suggesting right heart dysfunction. Heterogenous enhancement and decreased density of the left kidney new since CTA on 01/03/2014- may represent renal ischemia/infarction versus pyelonephritis, neoplasm not ruled out. 2.9 superior and lateral left renal cyst with delayed peripheral nodular enhancement suspicious for cystic renal neoplasm, MRI/CT with IV contrast recommended. Splenic infarction, given left renal and splenic infarctions embolic etiology should be considered. Patient was given IV fluids due to tachycardia, patient's anticoagulants were held for thoracentesis, so there were concerns about possible pulmonary emboli, CT was therefore ordered with negative findings. Case was discussed with hospitalist and decision to admit Patient was admitted under Dr. Maddie Nascimento: Acute problem list and plan: 1. Acute hypoxic respiratory failure secondary right-sided pleural effusion with decompensated RV dysfunction, elevated leukocytosis with recent hospitalization could have concurrent pneumonia: We will check strep pneumo, Legionella antigens, flu, RSV, thoracentesis ordered with fluid studies, O2 as needed, continue aerosol, leukocytosis coverage ordered with IV antibiotics. 2. Splenic/renal infarct: Suspected to be related to subtherapeutic INR and atrial fibrillation, heparin drip was started, patient had prior complications with Xarelto, has been on Coumadin but consider trial of Eliquis as an alternative. Echocardiogram ordered. 3. Leukocytosis: Cultures were ordered, empiric antibiotics, lactic acid normal. 4. Recurrent right-sided pleural effusion: May be related to pulmonary artery hypertension, CT shows marked dilatation of central vasculature without PE, echocardiogram ordered. Started on Lasix drip. 5. Decompensated right-sided heart failure: Lasix drip started, follow BMP, sodium restriction, consider right-sided heart cath, pulmonary medicine consult. 6. Cystic renal mass: Concerning for malignancy, abdominal MRI ordered, consult urology 7. PAF: Current atrial fibrillation, heparin drip started, again echocardiogram ordered to check for embolic sources, diltiazem and metoprolol continued. 8. GERD: Continue omeprazole 9. DVT prophylaxis: Heparin drip CODE STATUS: DNR CCA without intubation 07/14/[address] Malika Jain neurologist: increasing left upper quadrant and flank pain, atypical left renal cyst. Assessment and plan: Right renal cyst, renal infarction: No plans for intervention of 3 cm suspicious lesion during this admission, felt he could be done outpatient. 07/15/2021 consultation open soaper tender Dr. Dwayne Garcia: Assessment right pleural effusion: Continue diuretic therapy, empiric antimicrobials, thoracentesis recommended, eventual right heart cath work and secondary work-up for pH outpatient basis. 07/15/2021 echocardiogram: LV size and LV SF WNL, EF 60 to 65%. RV normal size and RV SF EF. Left atrium moderately enlarged, right atrium mildly enlarged. MV: Moderate mitral annular calcification, 1-2+ MA. TV: Normal. AV: Diffuse aortic valve calcification. PV: Not well visualized. Great vessels and aortic root normal. No pericardial effusion. No significant changes from prior echo. 07/15/2021 MR abdomen with and without IV contrast: Large right pleural effusion, moderate cardiomegaly, distended inferior vena cava and hepatic veins indicative of right-sided heart failure. Scarring of spleen related to old ischemia trauma, multiple nonenhancing lesions in the left kidney identified with contrast which may be related to inflammatory or infectious process 07/16/2021: Ultrasound-guided thoracentesis Dr. Gary Reyes: 670 mL of blood-tinged cloudy fluid drained and sent for analysis Chest x-ray following: Status post right thoracentesis no evidence of hemothorax, residual blunting of right costophrenic angle. Pertinent lab summary: 07/14/2021 blood cultures x2 sites showed no growth over 5 days. Urine clean catch for Legionella and Streptococcus pneumonia both negative. Nasal swab for rapid RSV and influenza as well as SARS Covid-2 all negative. 07/22/2021 WBC 10.2-Hgb 12.1-HCT 37-PLT 338. Chemistries: NA 136-K4.3-CL 102-CO2 30-BUN 14-CRE 0.94-GLU 90 Discharge weight 59.1 kg, BMI 26.4 Hospital course: Hospital course: Noted to be hypoxic 88% on arrival, CT showed moderate right pleural effusion with compressive atelectasis. In addition patient was found to have left renal infarct as well as splenic infarcts which were considered to be embolic. Patient's INR was subtherapeutic on the arrival. Thoracentesis as above, cytology was negative for malignancy, concern possibly due to rheumatoid arthritis. Patient is to have follow-up with pulmonology and wants to transfer care to Dr. Mariee. She did develop atrial fib with rapid ventricular rate during the hospital course, which was treated temporarily with diltiazem drip, metoprolol was increased from 25 100 mg twice daily and amiodarone 200 mg twice daily was added with successful rate control. New medications: Discharge planning follow-up: Acute respiratory failure with hypoxia Acute exacerbation chronic pleural effusion Right splenic infarct Decompensated HFpEF Cystic renal mass Paroxysmal atrial fibrillation Leukocytosis Status post thoracentesis Mitral valve annular calcification, 1-2+ insufficiency stable Aortic valve diffuse calcification stable COPD Hypertension Subtherapeutic INR due to holding Coumadin for thoracentesis Medication reconciliation: Metoprolol tartrate 100 mg p.o. twice daily #60/0 Amiodarone 200 mg p.o. twice daily #60/0 Change medications: Warfarin 4 mg p.o. daily Discontinued medications: Warfarin 2 mg Metoprolol tartrate 75 mg p.o. twice daily Continue medications: Multivitamin 1 tablet daily Calcium carbonate 600 mg (1500 mg) tablet 1 p.o. daily Furosemide 40 mg p.o. twice daily Handicap placard Albuterol sulfate 90 MCG per actuation HFA inhaler: 2 puffs every 4 hours as needed shortness of breath Omeprazole 40 mg capsule daily AC Potassium chloride 20 mEq ER: 1 tablet twice daily Diltiazem 2040 mg capsule extended release 24-hour: 1 capsule daily Referral/follow-up: Dr. Flaquito Mariee pulmonology 2 weeks Hypokalemia 07/09/2021 11/08/2022 Hyponatremia 07/09/2021 11/08/2022 Hypoxemia 06/23/2021 11/08/2022 Hypoxia 06/23/2021 11/08/2022 Pleural effusion, right 05/05/20200 11/2022 Overview: Now seeing Dr. Mariee Thoracic aorta atherosclerosis 03/23/2020 09/23/2020 Chronic systolic heart failure 11/21/2019 09/23/2020 Fatigue 11/24/2016 10/10/2017 Atrial fibrillation 01/14/2014 10/11/19 Centrilobular emphysema 01/14/201411/2022 Multiple thyroid nodules 03/03/2011 Hypertension 01/19/2011 06/23/2015 Esophagitis, unspecified 01/13/200901/2018 Gastrointestinal malfunction arising from mental factors 12/09/2008 10/10/2017 Nontoxic multinodular goiter 12/08/2008 05/08/2018 Dysphagia, unspecified(787.20) 05/08/2018 documented as of this encounter (statuses as of 03/15/2023) [facility]04-17-2023 History of Past illness Narrative* Problem Noted Date Diagnosed Date Resolved Date Deviation of international n ormalized ratio (INR) from target range 09/19/2022 11/08/2022 History of surgical procedure 09/19/2022 11/08/2022 Renal infarct 04/19/2022 07/26/2022 Overview: Has seen Dr. Chaney. Needs to just follow up prn. Dehydration 02/03/2022 11/08/2022 Gram-negative bacteremia 02/03/202211/2022 Hypophosphatemia 02/03/2022 11/08/2022 Pneumonia 02/03/2022 11/08/2022 Pyothorax without fistula 02/03/2022 Pleural effusion 01/31/2022 04/19/2022 Abnormal levels of other serum enzymes 11/11/2021 11/08/2022 Elevated liver enzymes 11/11/202111/08 Neoplasm of uncertain behavior of left kidney 09/24/19 22 11/08/2022 Shortness of breath 09/16/2021 11/09/19 23 Acute respiratory failure 07/22/2021 Chronic passive congestion of liver 07/22/2021 11/08/2022 Cyst of kidney, acquired 07/22/202111/2022 Ischemia and infarction of kidney 07/22/2021 11/08/2022 Overview: Has seen Dr Calvin Leukocytosis 07/22/2021 11/08/2022 Encounter for support and co ordination of transition of care 07/20/2021 07/26/2022 Overview: Facility: [facility] Date of admission 07/14/2021 Date of discharge Prehospital work-up: Presented to 07/14/2021 to [facility] ED complaining of left-sided abdominal pain with multiple symptoms including cough, myalgias, nasal congestion, low dietary intake due to concerns that would aggravate stomach ache. Patient was exposed to Covid 2 weeks prior, unvaccinated. Vital signs: 98.3 A-[id number]/102-93% RA. Exam description: Tired, alert and nontoxic, normal respiratory effort, mild tenderness left upper quadrant without rebound or guarding. WBC 20.3-Hgb 14-HCT 43-PLT 388-Ig percent 0.5-absolute neutrophil 17 point 3H Lactic acid 1.2. Sodium 131-K3.8-CL 95-CO2 29.0, glucose 133, otherwise CMP is within normal limits. Calcium 9.1. Liver panel: Total bili 1.10H-AST 180-ALT 95-ALP 126-total protein 8.3-Albumin three-point 3-5 and 50.0-lipase 74. 07/14/2021 CT abdomen pelvis: Dilated main and bilateral pulmonary arteries suggesting pulmonary hypertension, moderate volume right pleural effusion with compressive atelectasis at right lower lobe, moderate cardiomegaly with dilated right ventricle and reflux of contrast in IVC suggesting right heart dysfunction. Heterogenous enhancement and decreased density of the left kidney new since CTA on 01/03/2014- may represent renal ischemia/infarction versus pyelonephritis, neoplasm not ruled out. 2.9 superior and lateral left renal cyst with delayed peripheral nodular enhancement suspicious for cystic renal neoplasm, MRI/CT with IV contrast recommended. Splenic infarction, given left renal and splenic infarctions embolic etiology should be considered. Patient was given IV fluids due to tachycardia, patient's anticoagulants were held for thoracentesis, so there were concerns about possible pulmonary emboli, CT was therefore ordered with negative findings. Case was discussed with hospitalist and decision to admit Patient was admitted under Dr. Maddie Nascimento: Acute problem list and plan: 1. Acute hypoxic respiratory failure secondary right-sided pleural effusion with decompensated RV dysfunction, elevated leukocytosis with recent hospitalization could have concurrent pneumonia: We will check strep pneumo, Legionella antigens, flu, RSV, thoracentesis ordered with fluid studies, O2 as needed, continue aerosol, leukocytosis coverage ordered with IV antibiotics. 2. Splenic/renal infarct: Suspected to be related to subtherapeutic INR and atrial fibrillation, heparin drip was started, patient had prior complications with Xarelto, has been on Coumadin but consider trial of Eliquis as an alternative. Echocardiogram ordered. 3. Leukocytosis: Cultures were ordered, empiric antibiotics, lactic acid normal. 4. Recurrent right-sided pleural effusion: May be related to pulmonary artery hypertension, CT shows marked dilatation of central vasculature without PE, echocardiogram ordered. Started on Lasix drip. 5. Decompensated right-sided heart failure: Lasix drip started, follow BMP, sodium restriction, consider right-sided heart cath, pulmonary medicine consult. 6. Cystic renal mass: Concerning for malignancy, abdominal MRI ordered, consult urology 7. PAF: Current atrial fibrillation, heparin drip started, again echocardiogram ordered to check for embolic sources, diltiazem and metoprolol continued. 8. GERD: Continue omeprazole 9. DVT prophylaxis: Heparin drip CODE STATUS: DNR CCA without intubation 07/14/[address] Malika Jain neurologist: increasing left upper quadrant and flank pain, atypical left renal cyst. Assessment and plan: Right renal cyst, renal infarction: No plans for intervention of 3 cm suspicious lesion during this admission, felt he could be done outpatient. 07/15/2021 consultation open soaper tender Dr. Dwayne Garcia: Assessment right pleural effusion: Continue diuretic therapy, empiric antimicrobials, thoracentesis recommended, eventual right heart cath work and secondary work-up for pH outpatient basis. 07/15/2021 echocardiogram: LV size and LV SF WNL, EF 60 to 65%. RV normal size and RV SF EF. Left atrium moderately enlarged, right atrium mildly enlarged. MV: Moderate mitral annular calcification, 1-2+ MA. TV: Normal. AV: Diffuse aortic valve calcification. PV: Not well visualized. Great vessels and aortic root normal. No pericardial effusion. No significant changes from prior echo. 07/15/2021 MR abdomen with and without IV contrast: Large right pleural effusion, moderate cardiomegaly, distended inferior vena cava and hepatic veins indicative of right-sided heart failure. Scarring of spleen related to old ischemia trauma, multiple nonenhancing lesions in the left kidney identified with contrast which may be related to inflammatory or infectious process 07/16/2021: Ultrasound-guided thoracentesis Dr. Gary Reyes: 670 mL of blood-tinged cloudy fluid drained and sent for analysis Chest x-ray following: Status post right thoracentesis no evidence of hemothorax, residual blunting of right costophrenic angle. Pertinent lab summary: 07/14/2021 blood cultures x2 sites showed no growth over 5 days. Urine clean catch for Legionella and Streptococcus pneumonia both negative. Nasal swab for rapid RSV and influenza as well as SARS Covid-2 all negative. 07/22/2021 WBC 10.2-Hgb 12.1-HCT 37-PLT 338. Chemistries: NA 136-K4.3-CL 102-CO2 30-BUN 14-CRE 0.94-GLU 90 Discharge weight 59.1 kg, BMI 26.4 Hospital course: Hospital course: Noted to be hypoxic 88% on arrival, CT showed moderate right pleural effusion with compressive atelectasis. In addition patient was found to have left renal infarct as well as splenic infarcts which were considered to be embolic. Patient's INR was subtherapeutic on the arrival. Thoracentesis as above, cytology was negative for malignancy, concern possibly due to rheumatoid arthritis. Patient is to have follow-up with pulmonology and wants to transfer care to Dr. Mariee. She did develop atrial fib with rapid ventricular rate during the hospital course, which was treated temporarily with diltiazem drip, metoprolol was increased from 25 100 mg twice daily and amiodarone 200 mg twice daily was added with successful rate control. New medications: Discharge planning follow-up: Acute respiratory failure with hypoxia Acute exacerbation chronic pleural effusion Right splenic infarct Decompensated HFpEF Cystic renal mass Paroxysmal atrial fibrillation Leukocytosis Status post thoracentesis Mitral valve annular calcification, 1-2+ insufficiency stable Aortic valve diffuse calcification stable COPD Hypertension Subtherapeutic INR due to holding Coumadin for thoracentesis Medication reconciliation: Metoprolol tartrate 100 mg p.o. twice daily #60/0 Amiodarone 200 mg p.o. twice daily #60/0 Change medications: Warfarin 4 mg p.o. daily Discontinued medications: Warfarin 2 mg Metoprolol tartrate 75 mg p.o. twice daily Continue medications: Multivitamin 1 tablet daily Calcium carbonate 600 mg (1500 mg) tablet 1 p.o. daily Furosemide 40 mg p.o. twice daily Handicap placard Albuterol sulfate 90 MCG per actuation HFA inhaler: 2 puffs every 4 hours as needed shortness of breath Omeprazole 40 mg capsule daily AC Potassium chloride 20 mEq ER: 1 tablet twice daily Diltiazem 2040 mg capsule extended release 24-hour: 1 capsule daily Referral/follow-up: Dr. Flaquito Mariee pulmonology 2 weeks Hypokalemia 07/09/2021 11/08/2022 Hyponatremia 07/09/2021 11/08/2022 Hypoxemia 06/23/2021 11/08/2022 Hypoxia 06/23/2021 11/08/2022 Pleural effusion, right 05/05/202011/2022 Overview: Now seeing Dr. Mariee Thoracic aorta atherosclerosis 03/23/2020 09/23/2020 Chronic systolic heart failure 11/21/2019 09/23/2020 Fatigue 11/24/2016 10/10/2017 Atrial fibrillation 01/14/2014 10/11/19 18 Centrilobular emphysema 01/14/201411/2022 Multiple thyroid nodules 03/03/2011 Hypertension 01/19/2011 06/23/2015 Esophagitis, unspecified 01/13/200901/2018 Gastrointestinal malfunction arising from mental factors 12/09/2008 10/10/2017 Nontoxic multinodular goiter 12/08/2008 05/08/2018 Dysphagia, unspecified(787.20) 05/08/2018 documented as of this encounter (statuses as of 03/15/2023) [facility]04-17-2023 History of Past illness Narrative* Problem Noted Date Diagnosed Date Resolved Date Deviation of international n ormalized ratio (INR) from target range 09/19/2022 11/08/2022 History of surgical procedure 09/19/2022 11/08/2022 Renal infarct 04/19/2022 07/26/2022 Overview: Has seen Dr. Chaney. Needs to just follow up prn. Dehydration 02/03/2022 11/08/2022 Gram-negative bacteremia 02/03/202211/2022 Hypophosphatemia 02/03/2022 11/08/2022 Pneumonia 02/03/2022 11/08/2022 Pyothorax without fistula 02/03/2022 Pleural effusion 01/31/2022 04/19/2022 Abnormal levels of other serum enzymes 11/11/2021 11/08/2022 Elevated liver enzymes 11/11/202111/08 Neoplasm of uncertain behavior of left kidney 09/24/19 22 11/08/2022 Shortness of breath 09/16/2021 11/09/19 Acute respiratory failure 07/22/2021 Chronic passive congestion of liver 07/22/2021 11/08/2022 Cyst of kidney, acquired 07/22/202111/2022 Ischemia and infarction of kidney 07/22/2021 11/08/2022 Overview: Has seen Dr Calvin Leukocytosis 07/22/2021 11/08/2022 Encounter for support and co ordination of transition of care 07/20/2021 07/26/2022 Overview: Facility: [facility] Date of admission 07/14/2021 Date of discharge Prehospital work-up: Presented to 07/14/2021 to [facility] ED complaining of left-sided abdominal pain with multiple symptoms including cough, myalgias, nasal congestion, low dietary intake due to concerns that would aggravate stomach ache. Patient was exposed to Covid 2 weeks prior, unvaccinated. Vital signs: 98.3 L-601-83-143/102-93% RA. Exam description: Tired, alert and nontoxic, normal respiratory effort, mild tenderness left upper quadrant without rebound or guarding. WBC 20.3-Hgb 14-HCT 43-PLT 388-Ig percent 0.5-absolute neutrophil 17 point 3H Lactic acid 1.2. Sodium 131-K3.8-CL 95-CO2 29.0, glucose 133, otherwise CMP is within normal limits. Calcium 9.1. Liver panel: Total bili 1.10H-AST 180-ALT 95-ALP 126-total protein 8.3-Albumin three-point 3-5 and 50.0-lipase 74. 07/14/2021 CT abdomen pelvis: Dilated main and bilateral pulmonary arteries suggesting pulmonary hypertension, moderate volume right pleural effusion with compressive atelectasis at right lower lobe, moderate cardiomegaly with dilated right ventricle and reflux of contrast in IVC suggesting right heart dysfunction. Heterogenous enhancement and decreased density of the left kidney new since CTA on 01/03/2014- may represent renal ischemia/infarction versus pyelonephritis, neoplasm not ruled out. 2.9 superior and lateral left renal cyst with delayed peripheral nodular enhancement suspicious for cystic renal neoplasm, MRI/CT with IV contrast recommended. Splenic infarction, given left renal and splenic infarctions embolic etiology should be considered. Patient was given IV fluids due to tachycardia, patient's anticoagulants were held for thoracentesis, so there were concerns about possible pulmonary emboli, CT was therefore ordered with negative findings. Case was discussed with hospitalist and decision to admit Patient was admitted under Dr. Maddie Nascimento: Acute problem list and plan: 1. Acute hypoxic respiratory failure secondary right-sided pleural effusion with decompensated RV dysfunction, elevated leukocytosis with recent hospitalization could have concurrent pneumonia: We will check strep pneumo, Legionella antigens, flu, RSV, thoracentesis ordered with fluid studies, O2 as needed, continue aerosol, leukocytosis coverage ordered with IV antibiotics. 2. Splenic/renal infarct: Suspected to be related to subtherapeutic INR and atrial fibrillation, heparin drip was started, patient had prior complications with Xarelto, has been on Coumadin but consider trial of Eliquis as an alternative. Echocardiogram ordered. 3. Leukocytosis: Cultures were ordered, empiric antibiotics, lactic acid normal. 4. Recurrent right-sided pleural effusion: May be related to pulmonary artery hypertension, CT shows marked dilatation of central vasculature without PE, echocardiogram ordered. Started on Lasix drip. 5. Decompensated right-sided heart failure: Lasix drip started, follow BMP, sodium restriction, consider right-sided heart cath, pulmonary medicine consult. 6. Cystic renal mass: Concerning for malignancy, abdominal MRI ordered, consult urology 7. PAF: Current atrial fibrillation, heparin drip started, again echocardiogram ordered to check for embolic sources, diltiazem and metoprolol continued. 8. GERD: Continue omeprazole 9. DVT prophylaxis: Heparin drip CODE STATUS: DNR CCA without intubation 07/14/[address] Malika Jain neurologist: increasing left upper quadrant and flank pain, atypical left renal cyst. Assessment and plan: Right renal cyst, renal infarction: No plans for intervention of 3 cm suspicious lesion during this admission, felt he could be done outpatient. 07/15/2021 consultation open soaper tender Dr. Dwayne Garcia: Assessment right pleural effusion: Continue diuretic therapy, empiric antimicrobials, thoracentesis recommended, eventual right heart cath work and secondary work-up for pH outpatient basis. 07/15/2021 echocardiogram: LV size and LV SF WNL, EF 60 to 65%. RV normal size and RV SF EF. Left atrium moderately enlarged, right atrium mildly enlarged. MV: Moderate mitral annular calcification, 1-2+ MA. TV: Normal. AV: Diffuse aortic valve calcification. PV: Not well visualized. Great vessels and aortic root normal. No pericardial effusion. No significant changes from prior echo. 07/15/2021 MR abdomen with and without IV contrast: Large right pleural effusion, moderate cardiomegaly, distended inferior vena cava and hepatic veins indicative of right-sided heart failure. Scarring of spleen related to old ischemia trauma, multiple nonenhancing lesions in the left kidney identified with contrast which may be related to inflammatory or infectious process 07/16/2021: Ultrasound-guided thoracentesis Dr. Gary Reyes: 670 mL of blood-tinged cloudy fluid drained and sent for analysis Chest x-ray following: Status post right thoracentesis no evidence of hemothorax, residual blunting of right costophrenic angle. Pertinent lab summary: 07/14/2021 blood cultures x2 sites showed no growth over 5 days. Urine clean catch for Legionella and Streptococcus pneumonia both negative. Nasal swab for rapid RSV and influenza as well as SARS Covid-2 all negative. 07/22/2021 WBC 10.2-Hgb 12.1-HCT 37-PLT 338. Chemistries: NA 136-K4.3-CL 102-CO2 30-BUN 14-CRE 0.94-GLU 90 Discharge weight 59.1 kg, BMI 26.4 Hospital course: Hospital course: Noted to be hypoxic 88% on arrival, CT showed moderate right pleural effusion with compressive atelectasis. In addition patient was found to have left renal infarct as well as splenic infarcts which were considered to be embolic. Patient's INR was subtherapeutic on the arrival. Thoracentesis as above, cytology was negative for malignancy, concern possibly due to rheumatoid arthritis. Patient is to have follow-up with pulmonology and wants to transfer care to Dr. Mariee. She did develop atrial fib with rapid ventricular rate during the hospital course, which was treated temporarily with diltiazem drip, metoprolol was increased from 25 100 mg twice daily and amiodarone 200 mg twice daily was added with successful rate control. New medications: Discharge planning follow-up: Acute respiratory failure with hypoxia Acute exacerbation chronic pleural effusion Right splenic infarct Decompensated HFpEF Cystic renal mass Paroxysmal atrial fibrillation Leukocytosis Status post thoracentesis Mitral valve annular calcification, 1-2+ insufficiency stable Aortic valve diffuse calcification stable COPD Hypertension Subtherapeutic INR due to holding Coumadin for thoracentesis Medication reconciliation: Metoprolol tartrate 100 mg p.o. twice daily #60/0 Amiodarone 200 mg p.o. twice daily #60/0 Change medications: Warfarin 4 mg p.o. daily Discontinued medications: Warfarin 2 mg Metoprolol tartrate 75 mg p.o. twice daily Continue medications: Multivitamin 1 tablet daily Calcium carbonate 600 mg (1500 mg) tablet 1 p.o. daily Furosemide 40 mg p.o. twice daily Handicap placard Albuterol sulfate 90 MCG per actuation HFA inhaler: 2 puffs every 4 hours as needed shortness of breath Omeprazole 40 mg capsule daily AC Potassium chloride 20 mEq ER: 1 tablet twice daily Diltiazem 2040 mg capsule extended release 24-hour: 1 capsule daily Referral/follow-up: Dr. Flaquito Mariee pulmonology 2 weeks Hypokalemia 07/09/2021 11/08/2022 Hyponatremia 07/09/2021 11/08/2022 Hypoxemia 06/23/2021 11/08/2022 Hypoxia 06/23/2021 11/08/2022 Pleural effusion, right 05/05/20200 11/2022 Overview: Now seeing Dr. Mariee Thoracic aorta atherosclerosis 03/23/2020 09/23/2020 Chronic systolic heart failure 11/21/2019 09/23/2020 Fatigue 11/24/2016 10/10/2017 Atrial fibrillation 01/14/2014 10/11/19 Centrilobular emphysema 01/14/201411/2022 Multiple thyroid nodules 03/03/2011 Hypertension 01/19/2011 06/23/2015 Esophagitis, unspecified 01/13/200901/2018 Gastrointestinal malfunction arising from mental factors 12/09/2008 10/10/2017 Nontoxic multinodular goiter 12/08/2008 05/08/2018 Dysphagia, unspecified(787.20) 05/08/2018 documented as of this encounter (statuses as of 03/31/2023) [facility]04-17-2023 History of Past illness Narrative* Problem Noted Date Diagnosed Date Resolved Date Deviation of international n ormalized ratio (INR) from target range 09/19/2022 11/08/2022 History of surgical procedure 09/19/2022 11/08/2022 Renal infarct 04/19/2022 07/26/2022 Overview: Has seen Dr. Chaney. Needs to just follow up prn. Dehydration 02/03/2022 11/08/2022 Gram-negative bacteremia 02/03/202211/2022 Hypophosphatemia 02/03/2022 11/08/2022 Pneumonia 02/03/2022 11/08/2022 Pyothorax without fistula 02/03/2022 Pleural effusion 01/31/2022 04/19/2022 Abnormal levels of other serum enzymes 11/11/2021 11/08/2022 Elevated liver enzymes 11/11/202111/08 Neoplasm of uncertain behavior of left kidney 09/24/19 22 11/08/2022 Shortness of breath 09/16/2021 11/09/19 23 Acute respiratory failure 07/22/2021 Chronic passive congestion of liver 07/22/2021 11/08/2022 Cyst of kidney, acquired 07/22/202111/2022 Ischemia and infarction of kidney 07/22/2021 11/08/2022 Overview: Has seen Dr Calvin Leukocytosis 07/22/2021 11/08/2022 Encounter for support and co ordination of transition of care 07/20/2021 07/26/2022 Overview: Facility: [facility] Date of admission 07/14/2021 Date of discharge Prehospital work-up: Presented to 07/14/2021 to [facility] ED complaining of left-sided abdominal pain with multiple symptoms including cough, myalgias, nasal congestion, low dietary intake due to concerns that would aggravate stomach ache. Patient was exposed to Covid 2 weeks prior, unvaccinated. Vital signs: 98.3 I-681-37-143/102-93% RA. Exam description: Tired, alert and nontoxic, normal respiratory effort, mild tenderness left upper quadrant without rebound or guarding. WBC 20.3-Hgb 14-HCT 43-PLT 388-Ig percent 0.5-absolute neutrophil 17 point 3H Lactic acid 1.2. Sodium 131-K3.8-CL 95-CO2 29.0, glucose 133, otherwise CMP is within normal limits. Calcium 9.1. Liver panel: Total bili 1.10H-AST 180-ALT 95-ALP 126-total protein 8.3-Albumin three-point 3-5 and 50.0-lipase 74. 07/14/2021 CT abdomen pelvis: Dilated main and bilateral pulmonary arteries suggesting pulmonary hypertension, moderate volume right pleural effusion with compressive atelectasis at right lower lobe, moderate cardiomegaly with dilated right ventricle and reflux of contrast in IVC suggesting right heart dysfunction. Heterogenous enhancement and decreased density of the left kidney new since CTA on 01/03/2014- may represent renal ischemia/infarction versus pyelonephritis, neoplasm not ruled out. 2.9 superior and lateral left renal cyst with delayed peripheral nodular enhancement suspicious for cystic renal neoplasm, MRI/CT with IV contrast recommended. Splenic infarction, given left renal and splenic infarctions embolic etiology should be considered. Patient was given IV fluids due to tachycardia, patient's anticoagulants were held for thoracentesis, so there were concerns about possible pulmonary emboli, CT was therefore ordered with negative findings. Case was discussed with hospitalist and decision to admit Patient was admitted under Dr. Maddie Nascimento: Acute problem list and plan: 1. Acute hypoxic respiratory failure secondary right-sided pleural effusion with decompensated RV dysfunction, elevated leukocytosis with recent hospitalization could have concurrent pneumonia: We will check strep pneumo, Legionella antigens, flu, RSV, thoracentesis ordered with fluid studies, O2 as needed, continue aerosol, leukocytosis coverage ordered with IV antibiotics. 2. Splenic/renal infarct: Suspected to be related to subtherapeutic INR and atrial fibrillation, heparin drip was started, patient had prior complications with Xarelto, has been on Coumadin but consider trial of Eliquis as an alternative. Echocardiogram ordered. 3. Leukocytosis: Cultures were ordered, empiric antibiotics, lactic acid normal. 4. Recurrent right-sided pleural effusion: May be related to pulmonary artery hypertension, CT shows marked dilatation of central vasculature without PE, echocardiogram ordered. Started on Lasix drip. 5. Decompensated right-sided heart failure: Lasix drip started, follow BMP, sodium restriction, consider right-sided heart cath, pulmonary medicine consult. 6. Cystic renal mass: Concerning for malignancy, abdominal MRI ordered, consult urology 7. PAF: Current atrial fibrillation, heparin drip started, again echocardiogram ordered to check for embolic sources, diltiazem and metoprolol continued. 8. GERD: Continue omeprazole 9. DVT prophylaxis: Heparin drip CODE STATUS: DNR CCA without intubation 07/14/[address] Malika Jain neurologist: increasing left upper quadrant and flank pain, atypical left renal cyst. Assessment and plan: Right renal cyst, renal infarction: No plans for intervention of 3 cm suspicious lesion during this admission, felt he could be done outpatient. 07/15/2021 consultation open soaper tender Dr. Dwayne Garcia: Assessment right pleural effusion: Continue diuretic therapy, empiric antimicrobials, thoracentesis recommended, eventual right heart cath work and secondary work-up for pH outpatient basis. 07/15/2021 echocardiogram: LV size and LV SF WNL, EF 60 to 65%. RV normal size and RV SF EF. Left atrium moderately enlarged, right atrium mildly enlarged. MV: Moderate mitral annular calcification, 1-2+ MA. TV: Normal. AV: Diffuse aortic valve calcification. PV: Not well visualized. Great vessels and aortic root normal. No pericardial effusion. No significant changes from prior echo. 07/15/2021 MR abdomen with and without IV contrast: Large right pleural effusion, moderate cardiomegaly, distended inferior vena cava and hepatic veins indicative of right-sided heart failure. Scarring of spleen related to old ischemia trauma, multiple nonenhancing lesions in the left kidney identified with contrast which may be related to inflammatory or infectious process 07/16/2021: Ultrasound-guided thoracentesis Dr. Gayr Reyes: 670 mL of blood-tinged cloudy fluid drained and sent for analysis Chest x-ray following: Status post right thoracentesis no evidence of hemothorax, residual blunting of right costophrenic angle. Pertinent lab summary: 07/14/2021 blood cultures x2 sites showed no growth over 5 days. Urine clean catch for Legionella and Streptococcus pneumonia both negative. Nasal swab for rapid RSV and influenza as well as SARS Covid-2 all negative. 07/22/2021 WBC 10.2-Hgb 12.1-HCT 37-PLT 338. Chemistries: NA 136-K4.3-CL 102-CO2 30-BUN 14-CRE 0.94-GLU 90 Discharge weight 59.1 kg, BMI 26.4 Hospital course: Hospital course: Noted to be hypoxic 88% on arrival, CT showed moderate right pleural effusion with compressive atelectasis. In addition patient was found to have left renal infarct as well as splenic infarcts which were considered to be embolic. Patient's INR was subtherapeutic on the arrival. Thoracentesis as above, cytology was negative for malignancy, concern possibly due to rheumatoid arthritis. Patient is to have follow-up with pulmonology and wants to transfer care to Dr. Mariee. She did develop atrial fib with rapid ventricular rate during the hospital course, which was treated temporarily with diltiazem drip, metoprolol was increased from 25 100 mg twice daily and amiodarone 200 mg twice daily was added with successful rate control. New medications: Discharge planning follow-up: Acute respiratory failure with hypoxia Acute exacerbation chronic pleural effusion Right splenic infarct Decompensated HFpEF Cystic renal mass Paroxysmal atrial fibrillation Leukocytosis Status post thoracentesis Mitral valve annular calcification, 1-2+ insufficiency stable Aortic valve diffuse calcification stable COPD Hypertension Subtherapeutic INR due to holding Coumadin for thoracentesis Medication reconciliation: Metoprolol tartrate 100 mg p.o. twice daily #60/0 Amiodarone 200 mg p.o. twice daily #60/0 Change medications: Warfarin 4 mg p.o. daily Discontinued medications: Warfarin 2 mg Metoprolol tartrate 75 mg p.o. twice daily Continue medications: Multivitamin 1 tablet daily Calcium carbonate 600 mg (1500 mg) tablet 1 p.o. daily Furosemide 40 mg p.o. twice daily Handicap placard Albuterol sulfate 90 MCG per actuation HFA inhaler: 2 puffs every 4 hours as needed shortness of breath Omeprazole 40 mg capsule daily AC Potassium chloride 20 mEq ER: 1 tablet twice daily Diltiazem 2040 mg capsule extended release 24-hour: 1 capsule daily Referral/follow-up: Dr. Flaquito Mariee pulmonology 2 weeks Hypokalemia 07/09/2021 11/08/2022 Hyponatremia 07/09/2021 11/08/2022 Hypoxemia 06/23/2021 11/08/2022 Hypoxia 06/23/2021 11/08/2022 Pleural effusion, right 05/05/202011/2022 Overview: Now seeing Dr. Mariee Thoracic aorta atherosclerosis 03/23/2020 09/23/2020 Chronic systolic heart failure 11/21/2019 09/23/2020 Fatigue 11/24/2016 10/10/2017 Atrial fibrillation 01/14/2014 10/11/19 18 Centrilobular emphysema 01/14/201411/2022 Multiple thyroid nodules 03/03/2011 Hypertension 01/19/2011 06/23/2015 Esophagitis, unspecified 01/13/200901/2018 Gastrointestinal malfunction arising from mental factors 12/09/2008 10/10/2017 Nontoxic multinodular goiter 12/08/2008 05/08/2018 Dysphagia, unspecified(787.20) 05/08/2018 documented as of this encounter (statuses as of 04/09/2023) [facility]04-17-2023 History of Past illness Narrative* Problem Noted Date Diagnosed Date Resolved Date Deviation of international n ormalized ratio (INR) from target range 09/19/2022 11/08/2022 History of surgical procedure 09/19/2022 11/08/2022 Renal infarct 04/19/2022 07/26/2022 Overview: Has seen Dr. Chaney. Needs to just follow up prn. Dehydration 02/03/2022 11/08/2022 Gram-negative bacteremia 02/03/202211/2022 Hypophosphatemia 02/03/2022 11/08/2022 Pneumonia 02/03/2022 11/08/2022 Pyothorax without fistula 02/03/2022 Pleural effusion 01/31/2022 04/19/2022 Abnormal levels of other serum enzymes 11/11/2021 11/08/2022 Elevated liver enzymes 11/11/202111/08 Neoplasm of uncertain behavior of left kidney 09/24/19 22 11/08/2022 Shortness of breath 09/16/2021 11/09/19 Acute respiratory failure 07/22/2021 Chronic passive congestion of liver 07/22/2021 11/08/2022 Cyst of kidney, acquired 07/22/202111/2022 Ischemia and infarction of kidney 07/22/2021 11/08/2022 Overview: Has seen Dr Calvin Leukocytosis 07/22/2021 11/08/2022 Encounter for support and co ordination of transition of care 07/20/2021 07/26/2022 Overview: Facility: [facility] Date of admission 07/14/2021 Date of discharge Prehospital work-up: Presented to 07/14/2021 to [facility] ED complaining of left-sided abdominal pain with multiple symptoms including cough, myalgias, nasal congestion, low dietary intake due to concerns that would aggravate stomach ache. Patient was exposed to Covid 2 weeks prior, unvaccinated. Vital signs: 98.3 M-864-62-143/102-93% RA. Exam description: Tired, alert and nontoxic, normal respiratory effort, mild tenderness left upper quadrant without rebound or guarding. WBC 20.3-Hgb 14-HCT 43-PLT 388-Ig percent 0.5-absolute neutrophil 17 point 3H Lactic acid 1.2. Sodium 131-K3.8-CL 95-CO2 29.0, glucose 133, otherwise CMP is within normal limits. Calcium 9.1. Liver panel: Total bili 1.10H-AST 180-ALT 95-ALP 126-total protein 8.3-Albumin three-point 3-5 and 50.0-lipase 74. 07/14/2021 CT abdomen pelvis: Dilated main and bilateral pulmonary arteries suggesting pulmonary hypertension, moderate volume right pleural effusion with compressive atelectasis at right lower lobe, moderate cardiomegaly with dilated right ventricle and reflux of contrast in IVC suggesting right heart dysfunction. Heterogenous enhancement and decreased density of the left kidney new since CTA on 01/03/2014- may represent renal ischemia/infarction versus pyelonephritis, neoplasm not ruled out. 2.9 superior and lateral left renal cyst with delayed peripheral nodular enhancement suspicious for cystic renal neoplasm, MRI/CT with IV contrast recommended. Splenic infarction, given left renal and splenic infarctions embolic etiology should be considered. Patient was given IV fluids due to tachycardia, patient's anticoagulants were held for thoracentesis, so there were concerns about possible pulmonary emboli, CT was therefore ordered with negative findings. Case was discussed with hospitalist and decision to admit Patient was admitted under Dr. Maddie Nascimento: Acute problem list and plan: 1. Acute hypoxic respiratory failure secondary right-sided pleural effusion with decompensated RV dysfunction, elevated leukocytosis with recent hospitalization could have concurrent pneumonia: We will check strep pneumo, Legionella antigens, flu, RSV, thoracentesis ordered with fluid studies, O2 as needed, continue aerosol, leukocytosis coverage ordered with IV antibiotics. 2. Splenic/renal infarct: Suspected to be related to subtherapeutic INR and atrial fibrillation, heparin drip was started, patient had prior complications with Xarelto, has been on Coumadin but consider trial of Eliquis as an alternative. Echocardiogram ordered. 3. Leukocytosis: Cultures were ordered, empiric antibiotics, lactic acid normal. 4. Recurrent right-sided pleural effusion: May be related to pulmonary artery hypertension, CT shows marked dilatation of central vasculature without PE, echocardiogram ordered. Started on Lasix drip. 5. Decompensated right-sided heart failure: Lasix drip started, follow BMP, sodium restriction, consider right-sided heart cath, pulmonary medicine consult. 6. Cystic renal mass: Concerning for malignancy, abdominal MRI ordered, consult urology 7. PAF: Current atrial fibrillation, heparin drip started, again echocardiogram ordered to check for embolic sources, diltiazem and metoprolol continued. 8. GERD: Continue omeprazole 9. DVT prophylaxis: Heparin drip CODE STATUS: DNR CCA without intubation 07/14/[address] Malika Jain neurologist: increasing left upper quadrant and flank pain, atypical left renal cyst. Assessment and plan: Right renal cyst, renal infarction: No plans for intervention of 3 cm suspicious lesion during this admission, felt he could be done outpatient. 07/15/2021 consultation open soaper tender Dr. Dwayne Garcia: Assessment right pleural effusion: Continue diuretic therapy, empiric antimicrobials, thoracentesis recommended, eventual right heart cath work and secondary work-up for pH outpatient basis. 07/15/2021 echocardiogram: LV size and LV SF WNL, EF 60 to 65%. RV normal size and RV SF EF. Left atrium moderately enlarged, right atrium mildly enlarged. MV: Moderate mitral annular calcification, 1-2+ MA. TV: Normal. AV: Diffuse aortic valve calcification. PV: Not well visualized. Great vessels and aortic root normal. No pericardial effusion. No significant changes from prior echo. 07/15/2021 MR abdomen with and without IV contrast: Large right pleural effusion, moderate cardiomegaly, distended inferior vena cava and hepatic veins indicative of right-sided heart failure. Scarring of spleen related to old ischemia trauma, multiple nonenhancing lesions in the left kidney identified with contrast which may be related to inflammatory or infectious process 07/16/2021: Ultrasound-guided thoracentesis Dr. Gary Reyes: 670 mL of blood-tinged cloudy fluid drained and sent for analysis Chest x-ray following: Status post right thoracentesis no evidence of hemothorax, residual blunting of right costophrenic angle. Pertinent lab summary: 07/14/2021 blood cultures x2 sites showed no growth over 5 days. Urine clean catch for Legionella and Streptococcus pneumonia both negative. Nasal swab for rapid RSV and influenza as well as SARS Covid-2 all negative. 07/22/2021 WBC 10.2-Hgb 12.1-HCT 37-PLT 338. Chemistries: NA 136-K4.3-CL 102-CO2 30-BUN 14-CRE 0.94-GLU 90 Discharge weight 59.1 kg, BMI 26.4 Hospital course: Hospital course: Noted to be hypoxic 88% on arrival, CT showed moderate right pleural effusion with compressive atelectasis. In addition patient was found to have left renal infarct as well as splenic infarcts which were considered to be embolic. Patient's INR was subtherapeutic on the arrival. Thoracentesis as above, cytology was negative for malignancy, concern possibly due to rheumatoid arthritis. Patient is to have follow-up with pulmonology and wants to transfer care to Dr. Mariee. She did develop atrial fib with rapid ventricular rate during the hospital course, which was treated temporarily with diltiazem drip, metoprolol was increased from 25 100 mg twice daily and amiodarone 200 mg twice daily was added with successful rate control. New medications: Discharge planning follow-up: Acute respiratory failure with hypoxia Acute exacerbation chronic pleural effusion Right splenic infarct Decompensated HFpEF Cystic renal mass Paroxysmal atrial fibrillation Leukocytosis Status post thoracentesis Mitral valve annular calcification, 1-2+ insufficiency stable Aortic valve diffuse calcification stable COPD Hypertension Subtherapeutic INR due to holding Coumadin for thoracentesis Medication reconciliation: Metoprolol tartrate 100 mg p.o. twice daily #60/0 Amiodarone 200 mg p.o. twice daily #60/0 Change medications: Warfarin 4 mg p.o. daily Discontinued medications: Warfarin 2 mg Metoprolol tartrate 75 mg p.o. twice daily Continue medications: Multivitamin 1 tablet daily Calcium carbonate 600 mg (1500 mg) tablet 1 p.o. daily Furosemide 40 mg p.o. twice daily Handicap placard Albuterol sulfate 90 MCG per actuation HFA inhaler: 2 puffs every 4 hours as needed shortness of breath Omeprazole 40 mg capsule daily AC Potassium chloride 20 mEq ER: 1 tablet twice daily Diltiazem 2040 mg capsule extended release 24-hour: 1 capsule daily Referral/follow-up: Dr. Flaquito Mariee pulmonology 2 weeks Hypokalemia 07/09/2021 11/08/2022 Hyponatremia 07/09/2021 11/08/2022 Hypoxemia 06/23/2021 11/08/2022 Hypoxia 06/23/2021 11/08/2022 Pleural effusion, right 05/05/20200 11/2022 Overview: Now seeing Dr. Mariee Thoracic aorta atherosclerosis 03/23/2020 09/23/2020 Chronic systolic heart failure 11/21/2019 09/23/2020 Fatigue 11/24/2016 10/10/2017 Atrial fibrillation 01/14/2014 10/11/19 Centrilobular emphysema 01/14/201411/2022 Multiple thyroid nodules 03/03/2011 Hypertension 01/19/2011 06/23/2015 Esophagitis, unspecified 01/13/200901/2018 Gastrointestinal malfunction arising from mental factors 12/09/2008 10/10/2017 Nontoxic multinodular goiter 12/08/2008 05/08/2018 Dysphagia, unspecified(787.20) 05/08/2018 documented as of this encounter (statuses as of 04/09/2023) [facility]04-17-2023 History of Past illness Narrative* Problem Noted Date Diagnosed Date Resolved Date Deviation of international n ormalized ratio (INR) from target range 09/19/2022 11/08/2022 History of surgical procedure 09/19/2022 11/08/2022 Renal infarct 04/19/2022 07/26/2022 Overview: Has seen Dr. Chaney. Needs to just follow up prn. Dehydration 02/03/2022 11/08/2022 Gram-negative bacteremia 02/03/202211/2022 Hypophosphatemia 02/03/2022 11/08/2022 Pneumonia 02/03/2022 11/08/2022 Pyothorax without fistula 02/03/2022 Pleural effusion 01/31/2022 04/19/2022 Abnormal levels of other serum enzymes 11/11/2021 11/08/2022 Elevated liver enzymes 11/11/202111/08 Neoplasm of uncertain behavior of left kidney 09/24/19 22 11/08/2022 Shortness of breath 09/16/2021 11/09/19 23 Acute respiratory failure 07/22/2021 Chronic passive congestion of liver 07/22/2021 11/08/2022 Cyst of kidney, acquired 07/22/202111/2022 Ischemia and infarction of kidney 07/22/2021 11/08/2022 Overview: Has seen Dr Calvin Leukocytosis 07/22/2021 11/08/2022 Encounter for support and co ordination of transition of care 07/20/2021 07/26/2022 Overview: Facility: [facility] Date of admission 07/14/2021 Date of discharge Prehospital work-up: Presented to 07/14/2021 to [facility] ED complaining of left-sided abdominal pain with multiple symptoms including cough, myalgias, nasal congestion, low dietary intake due to concerns that would aggravate stomach ache. Patient was exposed to Covid 2 weeks prior, unvaccinated. Vital signs: 98.3 A-190-60-143/102-93% RA. Exam description: Tired, alert and nontoxic, normal respiratory effort, mild tenderness left upper quadrant without rebound or guarding. WBC 20.3-Hgb 14-HCT 43-PLT 388-Ig percent 0.5-absolute neutrophil 17 point 3H Lactic acid 1.2. Sodium 131-K3.8-CL 95-CO2 29.0, glucose 133, otherwise CMP is within normal limits. Calcium 9.1. Liver panel: Total bili 1.10H-AST 180-ALT 95-ALP 126-total protein 8.3-Albumin three-point 3-5 and 50.0-lipase 74. 07/14/2021 CT abdomen pelvis: Dilated main and bilateral pulmonary arteries suggesting pulmonary hypertension, moderate volume right pleural effusion with compressive atelectasis at right lower lobe, moderate cardiomegaly with dilated right ventricle and reflux of contrast in IVC suggesting right heart dysfunction. Heterogenous enhancement and decreased density of the left kidney new since CTA on 01/03/2014- may represent renal ischemia/infarction versus pyelonephritis, neoplasm not ruled out. 2.9 superior and lateral left renal cyst with delayed peripheral nodular enhancement suspicious for cystic renal neoplasm, MRI/CT with IV contrast recommended. Splenic infarction, given left renal and splenic infarctions embolic etiology should be considered. Patient was given IV fluids due to tachycardia, patient's anticoagulants were held for thoracentesis, so there were concerns about possible pulmonary emboli, CT was therefore ordered with negative findings. Case was discussed with hospitalist and decision to admit Patient was admitted under Dr. Maddie Nascimento: Acute problem list and plan: 1. Acute hypoxic respiratory failure secondary right-sided pleural effusion with decompensated RV dysfunction, elevated leukocytosis with recent hospitalization could have concurrent pneumonia: We will check strep pneumo, Legionella antigens, flu, RSV, thoracentesis ordered with fluid studies, O2 as needed, continue aerosol, leukocytosis coverage ordered with IV antibiotics. 2. Splenic/renal infarct: Suspected to be related to subtherapeutic INR and atrial fibrillation, heparin drip was started, patient had prior complications with Xarelto, has been on Coumadin but consider trial of Eliquis as an alternative. Echocardiogram ordered. 3. Leukocytosis: Cultures were ordered, empiric antibiotics, lactic acid normal. 4. Recurrent right-sided pleural effusion: May be related to pulmonary artery hypertension, CT shows marked dilatation of central vasculature without PE, echocardiogram ordered. Started on Lasix drip. 5. Decompensated right-sided heart failure: Lasix drip started, follow BMP, sodium restriction, consider right-sided heart cath, pulmonary medicine consult. 6. Cystic renal mass: Concerning for malignancy, abdominal MRI ordered, consult urology 7. PAF: Current atrial fibrillation, heparin drip started, again echocardiogram ordered to check for embolic sources, diltiazem and metoprolol continued. 8. GERD: Continue omeprazole 9. DVT prophylaxis: Heparin drip CODE STATUS: DNR CCA without intubation 07/14/[address] Malika Jain neurologist: increasing left upper quadrant and flank pain, atypical left renal cyst. Assessment and plan: Right renal cyst, renal infarction: No plans for intervention of 3 cm suspicious lesion during this admission, felt he could be done outpatient. 07/15/2021 consultation open soaper tender Dr. Dwayne Garcia: Assessment right pleural effusion: Continue diuretic therapy, empiric antimicrobials, thoracentesis recommended, eventual right heart cath work and secondary work-up for pH outpatient basis. 07/15/2021 echocardiogram: LV size and LV SF WNL, EF 60 to 65%. RV normal size and RV SF EF. Left atrium moderately enlarged, right atrium mildly enlarged. MV: Moderate mitral annular calcification, 1-2+ MA. TV: Normal. AV: Diffuse aortic valve calcification. PV: Not well visualized. Great vessels and aortic root normal. No pericardial effusion. No significant changes from prior echo. 07/15/2021 MR abdomen with and without IV contrast: Large right pleural effusion, moderate cardiomegaly, distended inferior vena cava and hepatic veins indicative of right-sided heart failure. Scarring of spleen related to old ischemia trauma, multiple nonenhancing lesions in the left kidney identified with contrast which may be related to inflammatory or infectious process 07/16/2021: Ultrasound-guided thoracentesis Dr. Gary Reyes: 670 mL of blood-tinged cloudy fluid drained and sent for analysis Chest x-ray following: Status post right thoracentesis no evidence of hemothorax, residual blunting of right costophrenic angle. Pertinent lab summary: 07/14/2021 blood cultures x2 sites showed no growth over 5 days. Urine clean catch for Legionella and Streptococcus pneumonia both negative. Nasal swab for rapid RSV and influenza as well as SARS Covid-2 all negative. 07/22/2021 WBC 10.2-Hgb 12.1-HCT 37-PLT 338. Chemistries: NA 136-K4.3-CL 102-CO2 30-BUN 14-CRE 0.94-GLU 90 Discharge weight 59.1 kg, BMI 26.4 Hospital course: Hospital course: Noted to be hypoxic 88% on arrival, CT showed moderate right pleural effusion with compressive atelectasis. In addition patient was found to have left renal infarct as well as splenic infarcts which were considered to be embolic. Patient's INR was subtherapeutic on the arrival. Thoracentesis as above, cytology was negative for malignancy, concern possibly due to rheumatoid arthritis. Patient is to have follow-up with pulmonology and wants to transfer care to Dr. Mariee. She did develop atrial fib with rapid ventricular rate during the hospital course, which was treated temporarily with diltiazem drip, metoprolol was increased from 25 100 mg twice daily and amiodarone 200 mg twice daily was added with successful rate control. New medications: Discharge planning follow-up: Acute respiratory failure with hypoxia Acute exacerbation chronic pleural effusion Right splenic infarct Decompensated HFpEF Cystic renal mass Paroxysmal atrial fibrillation Leukocytosis Status post thoracentesis Mitral valve annular calcification, 1-2+ insufficiency stable Aortic valve diffuse calcification stable COPD Hypertension Subtherapeutic INR due to holding Coumadin for thoracentesis Medication reconciliation: Metoprolol tartrate 100 mg p.o. twice daily #60/0 Amiodarone 200 mg p.o. twice daily #60/0 Change medications: Warfarin 4 mg p.o. daily Discontinued medications: Warfarin 2 mg Metoprolol tartrate 75 mg p.o. twice daily Continue medications: Multivitamin 1 tablet daily Calcium carbonate 600 mg (1500 mg) tablet 1 p.o. daily Furosemide 40 mg p.o. twice daily Handicap placard Albuterol sulfate 90 MCG per actuation HFA inhaler: 2 puffs every 4 hours as needed shortness of breath Omeprazole 40 mg capsule daily AC Potassium chloride 20 mEq ER: 1 tablet twice daily Diltiazem 2040 mg capsule extended release 24-hour: 1 capsule daily Referral/follow-up: Dr. Flaquito Mariee pulmonology 2 weeks Hypokalemia 07/09/2021 11/08/2022 Hyponatremia 07/09/2021 11/08/2022 Hypoxemia 06/23/2021 11/08/2022 Hypoxia 06/23/2021 11/08/2022 Pleural effusion, right 05/05/202011/2022 Overview: Now seeing Dr. Mariee Thoracic aorta atherosclerosis 03/23/2020 09/23/2020 Chronic systolic heart failure 11/21/2019 09/23/2020 Fatigue 11/24/2016 10/10/2017 Atrial fibrillation 01/14/2014 10/11/19 18 Centrilobular emphysema 01/14/201411/2022 Multiple thyroid nodules 03/03/2011 Hypertension 01/19/2011 06/23/2015 Esophagitis, unspecified 01/13/200901/2018 Gastrointestinal malfunction arising from mental factors 12/09/2008 10/10/2017 Nontoxic multinodular goiter 12/08/2008 05/08/2018 Dysphagia, unspecified(787.20) 05/08/2018 documented as of this encounter (statuses as of 04/12/2023) [facility]04-17-2023 History of Past illness Narrative* Problem Noted Date Diagnosed Date Resolved Date Deviation of international n ormalized ratio (INR) from target range 09/19/2022 11/08/2022 History of surgical procedure 09/19/2022 11/08/2022 Renal infarct 04/19/2022 07/26/2022 Overview: Has seen Dr. Chaney. Needs to just follow up prn. Dehydration 02/03/2022 11/08/2022 Gram-negative bacteremia 02/03/202211/2022 Hypophosphatemia 02/03/2022 11/08/2022 Pneumonia 02/03/2022 11/08/2022 Pyothorax without fistula 02/03/2022 Pleural effusion 01/31/2022 04/19/2022 Abnormal levels of other serum enzymes 11/11/2021 11/08/2022 Elevated liver enzymes 11/11/202111/08 Neoplasm of uncertain behavior of left kidney 09/24/19 22 11/08/2022 Shortness of breath 09/16/2021 11/09/19 Acute respiratory failure 07/22/2021 Chronic passive congestion of liver 07/22/2021 11/08/2022 Cyst of kidney, acquired 07/22/202111/2022 Ischemia and infarction of kidney 07/22/2021 11/08/2022 Overview: Has seen Dr Calvin Leukocytosis 07/22/2021 11/08/2022 Encounter for support and co ordination of transition of care 07/20/2021 07/26/2022 Overview: Facility: [facility] Date of admission 07/14/2021 Date of discharge Prehospital work-up: Presented to 07/14/2021 to [facility] ED complaining of left-sided abdominal pain with multiple symptoms including cough, myalgias, nasal congestion, low dietary intake due to concerns that would aggravate stomach ache. Patient was exposed to Covid 2 weeks prior, unvaccinated. Vital signs: 98.3 [id number]/102-93% RA. Exam description: Tired, alert and nontoxic, normal respiratory effort, mild tenderness left upper quadrant without rebound or guarding. WBC 20.3-Hgb 14-HCT 43-PLT 388-Ig percent 0.5-absolute neutrophil 17 point 3H Lactic acid 1.2. Sodium 131-K3.8-CL 95-CO2 29.0, glucose 133, otherwise CMP is within normal limits. Calcium 9.1. Liver panel: Total bili 1.10H-AST 180-ALT 95-ALP 126-total protein 8.3-Albumin three-point 3-5 and 50.0-lipase 74. 07/14/2021 CT abdomen pelvis: Dilated main and bilateral pulmonary arteries suggesting pulmonary hypertension, moderate volume right pleural effusion with compressive atelectasis at right lower lobe, moderate cardiomegaly with dilated right ventricle and reflux of contrast in IVC suggesting right heart dysfunction. Heterogenous enhancement and decreased density of the left kidney new since CTA on 01/03/2014- may represent renal ischemia/infarction versus pyelonephritis, neoplasm not ruled out. 2.9 superior and lateral left renal cyst with delayed peripheral nodular enhancement suspicious for cystic renal neoplasm, MRI/CT with IV contrast recommended. Splenic infarction, given left renal and splenic infarctions embolic etiology should be considered. Patient was given IV fluids due to tachycardia, patient's anticoagulants were held for thoracentesis, so there were concerns about possible pulmonary emboli, CT was therefore ordered with negative findings. Case was discussed with hospitalist and decision to admit Patient was admitted under Dr. Maddie Nascimento: Acute problem list and plan: 1. Acute hypoxic respiratory failure secondary right-sided pleural effusion with decompensated RV dysfunction, elevated leukocytosis with recent hospitalization could have concurrent pneumonia: We will check strep pneumo, Legionella antigens, flu, RSV, thoracentesis ordered with fluid studies, O2 as needed, continue aerosol, leukocytosis coverage ordered with IV antibiotics. 2. Splenic/renal infarct: Suspected to be related to subtherapeutic INR and atrial fibrillation, heparin drip was started, patient had prior complications with Xarelto, has been on Coumadin but consider trial of Eliquis as an alternative. Echocardiogram ordered. 3. Leukocytosis: Cultures were ordered, empiric antibiotics, lactic acid normal. 4. Recurrent right-sided pleural effusion: May be related to pulmonary artery hypertension, CT shows marked dilatation of central vasculature without PE, echocardiogram ordered. Started on Lasix drip. 5. Decompensated right-sided heart failure: Lasix drip started, follow BMP, sodium restriction, consider right-sided heart cath, pulmonary medicine consult. 6. Cystic renal mass: Concerning for malignancy, abdominal MRI ordered, consult urology 7. PAF: Current atrial fibrillation, heparin drip started, again echocardiogram ordered to check for embolic sources, diltiazem and metoprolol continued. 8. GERD: Continue omeprazole 9. DVT prophylaxis: Heparin drip CODE STATUS: DNR CCA without intubation 07/14/[address] Malika Jain neurologist: increasing left upper quadrant and flank pain, atypical left renal cyst. Assessment and plan: Right renal cyst, renal infarction: No plans for intervention of 3 cm suspicious lesion during this admission, felt he could be done outpatient. 07/15/2021 consultation open soaper tender Dr. Dwayne Garcia: Assessment right pleural effusion: Continue diuretic therapy, empiric antimicrobials, thoracentesis recommended, eventual right heart cath work and secondary work-up for pH outpatient basis. 07/15/2021 echocardiogram: LV size and LV SF WNL, EF 60 to 65%. RV normal size and RV SF EF. Left atrium moderately enlarged, right atrium mildly enlarged. MV: Moderate mitral annular calcification, 1-2+ MA. TV: Normal. AV: Diffuse aortic valve calcification. PV: Not well visualized. Great vessels and aortic root normal. No pericardial effusion. No significant changes from prior echo. 07/15/2021 MR abdomen with and without IV contrast: Large right pleural effusion, moderate cardiomegaly, distended inferior vena cava and hepatic veins indicative of right-sided heart failure. Scarring of spleen related to old ischemia trauma, multiple nonenhancing lesions in the left kidney identified with contrast which may be related to inflammatory or infectious process 07/16/2021: Ultrasound-guided thoracentesis Dr. Gary Reyes: 670 mL of blood-tinged cloudy fluid drained and sent for analysis Chest x-ray following: Status post right thoracentesis no evidence of hemothorax, residual blunting of right costophrenic angle. Pertinent lab summary: 07/14/2021 blood cultures x2 sites showed no growth over 5 days. Urine clean catch for Legionella and Streptococcus pneumonia both negative. Nasal swab for rapid RSV and influenza as well as SARS Covid-2 all negative. 07/22/2021 WBC 10.2-Hgb 12.1-HCT 37-PLT 338. Chemistries: NA 136-K4.3-CL 102-CO2 30-BUN 14-CRE 0.94-GLU 90 Discharge weight 59.1 kg, BMI 26.4 Hospital course: Hospital course: Noted to be hypoxic 88% on arrival, CT showed moderate right pleural effusion with compressive atelectasis. In addition patient was found to have left renal infarct as well as splenic infarcts which were considered to be embolic. Patient's INR was subtherapeutic on the arrival. Thoracentesis as above, cytology was negative for malignancy, concern possibly due to rheumatoid arthritis. Patient is to have follow-up with pulmonology and wants to transfer care to Dr. Mariee. She did develop atrial fib with rapid ventricular rate during the hospital course, which was treated temporarily with diltiazem drip, metoprolol was increased from 25 100 mg twice daily and amiodarone 200 mg twice daily was added with successful rate control. New medications: Discharge planning follow-up: Acute respiratory failure with hypoxia Acute exacerbation chronic pleural effusion Right splenic infarct Decompensated HFpEF Cystic renal mass Paroxysmal atrial fibrillation Leukocytosis Status post thoracentesis Mitral valve annular calcification, 1-2+ insufficiency stable Aortic valve diffuse calcification stable COPD Hypertension Subtherapeutic INR due to holding Coumadin for thoracentesis Medication reconciliation: Metoprolol tartrate 100 mg p.o. twice daily #60/0 Amiodarone 200 mg p.o. twice daily #60/0 Change medications: Warfarin 4 mg p.o. daily Discontinued medications: Warfarin 2 mg Metoprolol tartrate 75 mg p.o. twice daily Continue medications: Multivitamin 1 tablet daily Calcium carbonate 600 mg (1500 mg) tablet 1 p.o. daily Furosemide 40 mg p.o. twice daily Handicap placard Albuterol sulfate 90 MCG per actuation HFA inhaler: 2 puffs every 4 hours as needed shortness of breath Omeprazole 40 mg capsule daily AC Potassium chloride 20 mEq ER: 1 tablet twice daily Diltiazem 2040 mg capsule extended release 24-hour: 1 capsule daily Referral/follow-up: Dr. Flaquito Mariee pulmonology 2 weeks Hypokalemia 07/09/2021 11/08/2022 Hyponatremia 07/09/2021 11/08/2022 Hypoxemia 06/23/2021 11/08/2022 Hypoxia 06/23/2021 11/08/2022 Pleural effusion, right 05/05/20200 11/2022 Overview: Now seeing Dr. Mariee Thoracic aorta atherosclerosis 03/23/2020 09/23/2020 Chronic systolic heart failure 11/21/2019 09/23/2020 Fatigue 11/24/2016 10/10/2017 Atrial fibrillation 01/14/2014 10/11/19 Centrilobular emphysema 01/14/201411/2022 Multiple thyroid nodules 03/03/2011 Hypertension 01/19/2011 06/23/2015 Esophagitis, unspecified 01/13/200901/2018 Gastrointestinal malfunction arising from mental factors 12/09/2008 10/10/2017 Nontoxic multinodular goiter 12/08/2008 05/08/2018 Dysphagia, unspecified(787.20) 05/08/2018 documented as of this encounter (statuses as of 05/02/2023) [facility]04-17-2023 History of Past illness Narrative* Problem Noted Date Diagnosed Date Resolved Date Deviation of international n ormalized ratio (INR) from target range 09/19/2022 11/08/2022 History of surgical procedure 09/19/2022 11/08/2022 Renal infarct 04/19/2022 07/26/2022 Overview: Has seen Dr. Chaney. Needs to just follow up prn. Dehydration 02/03/2022 11/08/2022 Gram-negative bacteremia 02/03/202211/2022 Hypophosphatemia 02/03/2022 11/08/2022 Pneumonia 02/03/2022 11/08/2022 Pyothorax without fistula 02/03/2022 Pleural effusion 01/31/2022 04/19/2022 Abnormal levels of other serum enzymes 11/11/2021 11/08/2022 Elevated liver enzymes 11/11/202111/08 Neoplasm of uncertain behavior of left kidney 09/24/19 22 11/08/2022 Shortness of breath 09/16/2021 11/09/19 23 Acute respiratory failure 07/22/2021 Chronic passive congestion of liver 07/22/2021 11/08/2022 Cyst of kidney, acquired 07/22/202111/2022 Ischemia and infarction of kidney 07/22/2021 11/08/2022 Overview: Has seen Dr Calvin Leukocytosis 07/22/2021 11/08/2022 Encounter for support and co ordination of transition of care 07/20/2021 07/26/2022 Overview: Facility: [facility] Date of admission 07/14/2021 Date of discharge Prehospital work-up: Presented to 07/14/2021 to [facility] ED complaining of left-sided abdominal pain with multiple symptoms including cough, myalgias, nasal congestion, low dietary intake due to concerns that would aggravate stomach ache. Patient was exposed to Covid 2 weeks prior, unvaccinated. Vital signs: 98.3 [id number]/102-93% RA. Exam description: Tired, alert and nontoxic, normal respiratory effort, mild tenderness left upper quadrant without rebound or guarding. WBC 20.3-Hgb 14-HCT 43-PLT 388-Ig percent 0.5-absolute neutrophil 17 point 3H Lactic acid 1.2. Sodium 131-K3.8-CL 95-CO2 29.0, glucose 133, otherwise CMP is within normal limits. Calcium 9.1. Liver panel: Total bili 1.10H-AST 180-ALT 95-ALP 126-total protein 8.3-Albumin three-point 3-5 and 50.0-lipase 74. 07/14/2021 CT abdomen pelvis: Dilated main and bilateral pulmonary arteries suggesting pulmonary hypertension, moderate volume right pleural effusion with compressive atelectasis at right lower lobe, moderate cardiomegaly with dilated right ventricle and reflux of contrast in IVC suggesting right heart dysfunction. Heterogenous enhancement and decreased density of the left kidney new since CTA on 01/03/2014- may represent renal ischemia/infarction versus pyelonephritis, neoplasm not ruled out. 2.9 superior and lateral left renal cyst with delayed peripheral nodular enhancement suspicious for cystic renal neoplasm, MRI/CT with IV contrast recommended. Splenic infarction, given left renal and splenic infarctions embolic etiology should be considered. Patient was given IV fluids due to tachycardia, patient's anticoagulants were held for thoracentesis, so there were concerns about possible pulmonary emboli, CT was therefore ordered with negative findings. Case was discussed with hospitalist and decision to admit Patient was admitted under Dr. Maddie Nascimento: Acute problem list and plan: 1. Acute hypoxic respiratory failure secondary right-sided pleural effusion with decompensated RV dysfunction, elevated leukocytosis with recent hospitalization could have concurrent pneumonia: We will check strep pneumo, Legionella antigens, flu, RSV, thoracentesis ordered with fluid studies, O2 as needed, continue aerosol, leukocytosis coverage ordered with IV antibiotics. 2. Splenic/renal infarct: Suspected to be related to subtherapeutic INR and atrial fibrillation, heparin drip was started, patient had prior complications with Xarelto, has been on Coumadin but consider trial of Eliquis as an alternative. Echocardiogram ordered. 3. Leukocytosis: Cultures were ordered, empiric antibiotics, lactic acid normal. 4. Recurrent right-sided pleural effusion: May be related to pulmonary artery hypertension, CT shows marked dilatation of central vasculature without PE, echocardiogram ordered. Started on Lasix drip. 5. Decompensated right-sided heart failure: Lasix drip started, follow BMP, sodium restriction, consider right-sided heart cath, pulmonary medicine consult. 6. Cystic renal mass: Concerning for malignancy, abdominal MRI ordered, consult urology 7. PAF: Current atrial fibrillation, heparin drip started, again echocardiogram ordered to check for embolic sources, diltiazem and metoprolol continued. 8. GERD: Continue omeprazole 9. DVT prophylaxis: Heparin drip CODE STATUS: DNR CCA without intubation 07/14/[address] Malika Jain neurologist: increasing left upper quadrant and flank pain, atypical left renal cyst. Assessment and plan: Right renal cyst, renal infarction: No plans for intervention of 3 cm suspicious lesion during this admission, felt he could be done outpatient. 07/15/2021 consultation open soaper tender Dr. Dwayne Garcia: Assessment right pleural effusion: Continue diuretic therapy, empiric antimicrobials, thoracentesis recommended, eventual right heart cath work and secondary work-up for pH outpatient basis. 07/15/2021 echocardiogram: LV size and LV SF WNL, EF 60 to 65%. RV normal size and RV SF EF. Left atrium moderately enlarged, right atrium mildly enlarged. MV: Moderate mitral annular calcification, 1-2+ MA. TV: Normal. AV: Diffuse aortic valve calcification. PV: Not well visualized. Great vessels and aortic root normal. No pericardial effusion. No significant changes from prior echo. 07/15/2021 MR abdomen with and without IV contrast: Large right pleural effusion, moderate cardiomegaly, distended inferior vena cava and hepatic veins indicative of right-sided heart failure. Scarring of spleen related to old ischemia trauma, multiple nonenhancing lesions in the left kidney identified with contrast which may be related to inflammatory or infectious process 07/16/2021: Ultrasound-guided thoracentesis Dr. Gary Reyes: 670 mL of blood-tinged cloudy fluid drained and sent for analysis Chest x-ray following: Status post right thoracentesis no evidence of hemothorax, residual blunting of right costophrenic angle. Pertinent lab summary: 07/14/2021 blood cultures x2 sites showed no growth over 5 days. Urine clean catch for Legionella and Streptococcus pneumonia both negative. Nasal swab for rapid RSV and influenza as well as SARS Covid-2 all negative. 07/22/2021 WBC 10.2-Hgb 12.1-HCT 37-PLT 338. Chemistries: NA 136-K4.3-CL 102-CO2 30-BUN 14-CRE 0.94-GLU 90 Discharge weight 59.1 kg, BMI 26.4 Hospital course: Hospital course: Noted to be hypoxic 88% on arrival, CT showed moderate right pleural effusion with compressive atelectasis. In addition patient was found to have left renal infarct as well as splenic infarcts which were considered to be embolic. Patient's INR was subtherapeutic on the arrival. Thoracentesis as above, cytology was negative for malignancy, concern possibly due to rheumatoid arthritis. Patient is to have follow-up with pulmonology and wants to transfer care to Dr. Mariee. She did develop atrial fib with rapid ventricular rate during the hospital course, which was treated temporarily with diltiazem drip, metoprolol was increased from 25 100 mg twice daily and amiodarone 200 mg twice daily was added with successful rate control. New medications: Discharge planning follow-up: Acute respiratory failure with hypoxia Acute exacerbation chronic pleural effusion Right splenic infarct Decompensated HFpEF Cystic renal mass Paroxysmal atrial fibrillation Leukocytosis Status post thoracentesis Mitral valve annular calcification, 1-2+ insufficiency stable Aortic valve diffuse calcification stable COPD Hypertension Subtherapeutic INR due to holding Coumadin for thoracentesis Medication reconciliation: Metoprolol tartrate 100 mg p.o. twice daily #60/0 Amiodarone 200 mg p.o. twice daily #60/0 Change medications: Warfarin 4 mg p.o. daily Discontinued medications: Warfarin 2 mg Metoprolol tartrate 75 mg p.o. twice daily Continue medications: Multivitamin 1 tablet daily Calcium carbonate 600 mg (1500 mg) tablet 1 p.o. daily Furosemide 40 mg p.o. twice daily Handicap placard Albuterol sulfate 90 MCG per actuation HFA inhaler: 2 puffs every 4 hours as needed shortness of breath Omeprazole 40 mg capsule daily AC Potassium chloride 20 mEq ER: 1 tablet twice daily Diltiazem 2040 mg capsule extended release 24-hour: 1 capsule daily Referral/follow-up: Dr. Flaquito Mariee pulmonology 2 weeks Hypokalemia 07/09/2021 11/08/2022 Hyponatremia 07/09/2021 11/08/2022 Hypoxemia 06/23/2021 11/08/2022 Hypoxia 06/23/2021 11/08/2022 Pleural effusion, right 05/05/202011/2022 Overview: Now seeing Dr. Mariee Thoracic aorta atherosclerosis 03/23/2020 09/23/2020 Chronic systolic heart failure 11/21/2019 09/23/2020 Fatigue 11/24/2016 10/10/2017 Atrial fibrillation 01/14/2014 10/11/19 18 Centrilobular emphysema 01/14/201411/2022 Multiple thyroid nodules 03/03/2011 Hypertension 01/19/2011 06/23/2015 Esophagitis, unspecified 01/13/200901/2018 Gastrointestinal malfunction arising from mental factors 12/09/2008 10/10/2017 Nontoxic multinodular goiter 12/08/2008 05/08/2018 Dysphagia, unspecified(787.20) 05/08/2018 documented as of this encounter (statuses as of 05/02/2023) [facility]04-17-2023 History of Past illness Narrative* Problem Noted Date Diagnosed Date Resolved Date Deviation of international n ormalized ratio (INR) from target range 09/19/2022 11/08/2022 History of surgical procedure 09/19/2022 11/08/2022 Renal infarct 04/19/2022 07/26/2022 Overview: Has seen Dr. Chaney. Needs to just follow up prn. Dehydration 02/03/2022 11/08/2022 Gram-negative bacteremia 02/03/202211/2022 Hypophosphatemia 02/03/2022 11/08/2022 Pneumonia 02/03/2022 11/08/2022 Pyothorax without fistula 02/03/2022 Pleural effusion 01/31/2022 04/19/2022 Abnormal levels of other serum enzymes 11/11/2021 11/08/2022 Elevated liver enzymes 11/11/202111/08 Neoplasm of uncertain behavior of left kidney 09/24/19 22 11/08/2022 Shortness of breath 09/16/2021 11/09/19 Acute respiratory failure 07/22/2021 Chronic passive congestion of liver 07/22/2021 11/08/2022 Cyst of kidney, acquired 07/22/202111/2022 Ischemia and infarction of kidney 07/22/2021 11/08/2022 Overview: Has seen Dr Calvin Leukocytosis 07/22/2021 11/08/2022 Encounter for support and co ordination of transition of care 07/20/2021 07/26/2022 Overview: Facility: [facility] Date of admission 07/14/2021 Date of discharge Prehospital work-up: Presented to 07/14/2021 to [facility] ED complaining of left-sided abdominal pain with multiple symptoms including cough, myalgias, nasal congestion, low dietary intake due to concerns that would aggravate stomach ache. Patient was exposed to Covid 2 weeks prior, unvaccinated. Vital signs: 98.3 B-[id number]/102-93% RA. Exam description: Tired, alert and nontoxic, normal respiratory effort, mild tenderness left upper quadrant without rebound or guarding. WBC 20.3-Hgb 14-HCT 43-PLT 388-Ig percent 0.5-absolute neutrophil 17 point 3H Lactic acid 1.2. Sodium 131-K3.8-CL 95-CO2 29.0, glucose 133, otherwise CMP is within normal limits. Calcium 9.1. Liver panel: Total bili 1.10H-AST 180-ALT 95-ALP 126-total protein 8.3-Albumin three-point 3-5 and 50.0-lipase 74. 07/14/2021 CT abdomen pelvis: Dilated main and bilateral pulmonary arteries suggesting pulmonary hypertension, moderate volume right pleural effusion with compressive atelectasis at right lower lobe, moderate cardiomegaly with dilated right ventricle and reflux of contrast in IVC suggesting right heart dysfunction. Heterogenous enhancement and decreased density of the left kidney new since CTA on 01/03/2014- may represent renal ischemia/infarction versus pyelonephritis, neoplasm not ruled out. 2.9 superior and lateral left renal cyst with delayed peripheral nodular enhancement suspicious for cystic renal neoplasm, MRI/CT with IV contrast recommended. Splenic infarction, given left renal and splenic infarctions embolic etiology should be considered. Patient was given IV fluids due to tachycardia, patient's anticoagulants were held for thoracentesis, so there were concerns about possible pulmonary emboli, CT was therefore ordered with negative findings. Case was discussed with hospitalist and decision to admit Patient was admitted under Dr. Maddie Nascimento: Acute problem list and plan: 1. Acute hypoxic respiratory failure secondary right-sided pleural effusion with decompensated RV dysfunction, elevated leukocytosis with recent hospitalization could have concurrent pneumonia: We will check strep pneumo, Legionella antigens, flu, RSV, thoracentesis ordered with fluid studies, O2 as needed, continue aerosol, leukocytosis coverage ordered with IV antibiotics. 2. Splenic/renal infarct: Suspected to be related to subtherapeutic INR and atrial fibrillation, heparin drip was started, patient had prior complications with Xarelto, has been on Coumadin but consider trial of Eliquis as an alternative. Echocardiogram ordered. 3. Leukocytosis: Cultures were ordered, empiric antibiotics, lactic acid normal. 4. Recurrent right-sided pleural effusion: May be related to pulmonary artery hypertension, CT shows marked dilatation of central vasculature without PE, echocardiogram ordered. Started on Lasix drip. 5. Decompensated right-sided heart failure: Lasix drip started, follow BMP, sodium restriction, consider right-sided heart cath, pulmonary medicine consult. 6. Cystic renal mass: Concerning for malignancy, abdominal MRI ordered, consult urology 7. PAF: Current atrial fibrillation, heparin drip started, again echocardiogram ordered to check for embolic sources, diltiazem and metoprolol continued. 8. GERD: Continue omeprazole 9. DVT prophylaxis: Heparin drip CODE STATUS: DNR CCA without intubation 07/14/[address] Malika Jain neurologist: increasing left upper quadrant and flank pain, atypical left renal cyst. Assessment and plan: Right renal cyst, renal infarction: No plans for intervention of 3 cm suspicious lesion during this admission, felt he could be done outpatient. 07/15/2021 consultation open soaper tender Dr. Dwayne Garcia: Assessment right pleural effusion: Continue diuretic therapy, empiric antimicrobials, thoracentesis recommended, eventual right heart cath work and secondary work-up for pH outpatient basis. 07/15/2021 echocardiogram: LV size and LV SF WNL, EF 60 to 65%. RV normal size and RV SF EF. Left atrium moderately enlarged, right atrium mildly enlarged. MV: Moderate mitral annular calcification, 1-2+ MA. TV: Normal. AV: Diffuse aortic valve calcification. PV: Not well visualized. Great vessels and aortic root normal. No pericardial effusion. No significant changes from prior echo. 07/15/2021 MR abdomen with and without IV contrast: Large right pleural effusion, moderate cardiomegaly, distended inferior vena cava and hepatic veins indicative of right-sided heart failure. Scarring of spleen related to old ischemia trauma, multiple nonenhancing lesions in the left kidney identified with contrast which may be related to inflammatory or infectious process 07/16/2021: Ultrasound-guided thoracentesis Dr. Gary Reyes: 670 mL of blood-tinged cloudy fluid drained and sent for analysis Chest x-ray following: Status post right thoracentesis no evidence of hemothorax, residual blunting of right costophrenic angle. Pertinent lab summary: 07/14/2021 blood cultures x2 sites showed no growth over 5 days. Urine clean catch for Legionella and Streptococcus pneumonia both negative. Nasal swab for rapid RSV and influenza as well as SARS Covid-2 all negative. 07/22/2021 WBC 10.2-Hgb 12.1-HCT 37-PLT 338. Chemistries: NA 136-K4.3-CL 102-CO2 30-BUN 14-CRE 0.94-GLU 90 Discharge weight 59.1 kg, BMI 26.4 Hospital course: Hospital course: Noted to be hypoxic 88% on arrival, CT showed moderate right pleural effusion with compressive atelectasis. In addition patient was found to have left renal infarct as well as splenic infarcts which were considered to be embolic. Patient's INR was subtherapeutic on the arrival. Thoracentesis as above, cytology was negative for malignancy, concern possibly due to rheumatoid arthritis. Patient is to have follow-up with pulmonology and wants to transfer care to Dr. Mariee. She did develop atrial fib with rapid ventricular rate during the hospital course, which was treated temporarily with diltiazem drip, metoprolol was increased from 25 100 mg twice daily and amiodarone 200 mg twice daily was added with successful rate control. New medications: Discharge planning follow-up: Acute respiratory failure with hypoxia Acute exacerbation chronic pleural effusion Right splenic infarct Decompensated HFpEF Cystic renal mass Paroxysmal atrial fibrillation Leukocytosis Status post thoracentesis Mitral valve annular calcification, 1-2+ insufficiency stable Aortic valve diffuse calcification stable COPD Hypertension Subtherapeutic INR due to holding Coumadin for thoracentesis Medication reconciliation: Metoprolol tartrate 100 mg p.o. twice daily #60/0 Amiodarone 200 mg p.o. twice daily #60/0 Change medications: Warfarin 4 mg p.o. daily Discontinued medications: Warfarin 2 mg Metoprolol tartrate 75 mg p.o. twice daily Continue medications: Multivitamin 1 tablet daily Calcium carbonate 600 mg (1500 mg) tablet 1 p.o. daily Furosemide 40 mg p.o. twice daily Handicap placard Albuterol sulfate 90 MCG per actuation HFA inhaler: 2 puffs every 4 hours as needed shortness of breath Omeprazole 40 mg capsule daily AC Potassium chloride 20 mEq ER: 1 tablet twice daily Diltiazem 2040 mg capsule extended release 24-hour: 1 capsule daily Referral/follow-up: Dr. Flaquito Mariee pulmonology 2 weeks Hypokalemia 07/09/2021 11/08/2022 Hyponatremia 07/09/2021 11/08/2022 Hypoxemia 06/23/2021 11/08/2022 Hypoxia 06/23/2021 11/08/2022 Pleural effusion, right 05/05/20200 11/2022 Overview: Now seeing Dr. Mariee Thoracic aorta atherosclerosis 03/23/2020 09/23/2020 Chronic systolic heart failure 11/21/2019 09/23/2020 Fatigue 11/24/2016 10/10/2017 Atrial fibrillation 01/14/2014 10/11/19 Centrilobular emphysema 01/14/201411/2022 Multiple thyroid nodules 03/03/2011 Hypertension 01/19/2011 06/23/2015 Esophagitis, unspecified 01/13/200901/2018 Gastrointestinal malfunction arising from mental factors 12/09/2008 10/10/2017 Nontoxic multinodular goiter 12/08/2008 05/08/2018 Dysphagia, unspecified(787.20) 05/08/2018 documented as of this encounter (statuses as of 05/03/2023) [facility]04-17-2023 History of Past illness Narrative* Problem Noted Date Diagnosed Date Resolved Date Deviation of international n ormalized ratio (INR) from target range 09/19/2022 11/08/2022 History of surgical procedure 09/19/2022 11/08/2022 Renal infarct 04/19/2022 07/26/2022 Overview: Has seen Dr. Chaney. Needs to just follow up prn. Dehydration 02/03/2022 11/08/2022 Gram-negative bacteremia 02/03/202211/2022 Hypophosphatemia 02/03/2022 11/08/2022 Pneumonia 02/03/2022 11/08/2022 Pyothorax without fistula 02/03/2022 Pleural effusion 01/31/2022 04/19/2022 Abnormal levels of other serum enzymes 11/11/2021 11/08/2022 Elevated liver enzymes 11/11/202111/08 Neoplasm of uncertain behavior of left kidney 09/24/19 22 11/08/2022 Shortness of breath 09/16/2021 11/09/19 23 Acute respiratory failure 07/22/2021 Chronic passive congestion of liver 07/22/2021 11/08/2022 Cyst of kidney, acquired 07/22/202111/2022 Ischemia and infarction of kidney 07/22/2021 11/08/2022 Overview: Has seen Dr Calvin Leukocytosis 07/22/2021 11/08/2022 Encounter for support and co ordination of transition of care 07/20/2021 07/26/2022 Overview: Facility: [facility] Date of admission 07/14/2021 Date of discharge Prehospital work-up: Presented to 07/14/2021 to [facility] ED complaining of left-sided abdominal pain with multiple symptoms including cough, myalgias, nasal congestion, low dietary intake due to concerns that would aggravate stomach ache. Patient was exposed to Covid 2 weeks prior, unvaccinated. Vital signs: 98.3 Q-085-06-143/102-93% RA. Exam description: Tired, alert and nontoxic, normal respiratory effort, mild tenderness left upper quadrant without rebound or guarding. WBC 20.3-Hgb 14-HCT 43-PLT 388-Ig percent 0.5-absolute neutrophil 17 point 3H Lactic acid 1.2. Sodium 131-K3.8-CL 95-CO2 29.0, glucose 133, otherwise CMP is within normal limits. Calcium 9.1. Liver panel: Total bili 1.10H-AST 180-ALT 95-ALP 126-total protein 8.3-Albumin three-point 3-5 and 50.0-lipase 74. 07/14/2021 CT abdomen pelvis: Dilated main and bilateral pulmonary arteries suggesting pulmonary hypertension, moderate volume right pleural effusion with compressive atelectasis at right lower lobe, moderate cardiomegaly with dilated right ventricle and reflux of contrast in IVC suggesting right heart dysfunction. Heterogenous enhancement and decreased density of the left kidney new since CTA on 01/03/2014- may represent renal ischemia/infarction versus pyelonephritis, neoplasm not ruled out. 2.9 superior and lateral left renal cyst with delayed peripheral nodular enhancement suspicious for cystic renal neoplasm, MRI/CT with IV contrast recommended. Splenic infarction, given left renal and splenic infarctions embolic etiology should be considered. Patient was given IV fluids due to tachycardia, patient's anticoagulants were held for thoracentesis, so there were concerns about possible pulmonary emboli, CT was therefore ordered with negative findings. Case was discussed with hospitalist and decision to admit Patient was admitted under Dr. Maddie Nascimento: Acute problem list and plan: 1. Acute hypoxic respiratory failure secondary right-sided pleural effusion with decompensated RV dysfunction, elevated leukocytosis with recent hospitalization could have concurrent pneumonia: We will check strep pneumo, Legionella antigens, flu, RSV, thoracentesis ordered with fluid studies, O2 as needed, continue aerosol, leukocytosis coverage ordered with IV antibiotics. 2. Splenic/renal infarct: Suspected to be related to subtherapeutic INR and atrial fibrillation, heparin drip was started, patient had prior complications with Xarelto, has been on Coumadin but consider trial of Eliquis as an alternative. Echocardiogram ordered. 3. Leukocytosis: Cultures were ordered, empiric antibiotics, lactic acid normal. 4. Recurrent right-sided pleural effusion: May be related to pulmonary artery hypertension, CT shows marked dilatation of central vasculature without PE, echocardiogram ordered. Started on Lasix drip. 5. Decompensated right-sided heart failure: Lasix drip started, follow BMP, sodium restriction, consider right-sided heart cath, pulmonary medicine consult. 6. Cystic renal mass: Concerning for malignancy, abdominal MRI ordered, consult urology 7. PAF: Current atrial fibrillation, heparin drip started, again echocardiogram ordered to check for embolic sources, diltiazem and metoprolol continued. 8. GERD: Continue omeprazole 9. DVT prophylaxis: Heparin drip CODE STATUS: DNR CCA without intubation 07/14/[address] Malika Jain neurologist: increasing left upper quadrant and flank pain, atypical left renal cyst. Assessment and plan: Right renal cyst, renal infarction: No plans for intervention of 3 cm suspicious lesion during this admission, felt he could be done outpatient. 07/15/2021 consultation open soaper tender Dr. Dwayne Garcia: Assessment right pleural effusion: Continue diuretic therapy, empiric antimicrobials, thoracentesis recommended, eventual right heart cath work and secondary work-up for pH outpatient basis. 07/15/2021 echocardiogram: LV size and LV SF WNL, EF 60 to 65%. RV normal size and RV SF EF. Left atrium moderately enlarged, right atrium mildly enlarged. MV: Moderate mitral annular calcification, 1-2+ MA. TV: Normal. AV: Diffuse aortic valve calcification. PV: Not well visualized. Great vessels and aortic root normal. No pericardial effusion. No significant changes from prior echo. 07/15/2021 MR abdomen with and without IV contrast: Large right pleural effusion, moderate cardiomegaly, distended inferior vena cava and hepatic veins indicative of right-sided heart failure. Scarring of spleen related to old ischemia trauma, multiple nonenhancing lesions in the left kidney identified with contrast which may be related to inflammatory or infectious process 07/16/2021: Ultrasound-guided thoracentesis Dr. Gary Reyes: 670 mL of blood-tinged cloudy fluid drained and sent for analysis Chest x-ray following: Status post right thoracentesis no evidence of hemothorax, residual blunting of right costophrenic angle. Pertinent lab summary: 07/14/2021 blood cultures x2 sites showed no growth over 5 days. Urine clean catch for Legionella and Streptococcus pneumonia both negative. Nasal swab for rapid RSV and influenza as well as SARS Covid-2 all negative. 07/22/2021 WBC 10.2-Hgb 12.1-HCT 37-PLT 338. Chemistries: NA 136-K4.3-CL 102-CO2 30-BUN 14-CRE 0.94-GLU 90 Discharge weight 59.1 kg, BMI 26.4 Hospital course: Hospital course: Noted to be hypoxic 88% on arrival, CT showed moderate right pleural effusion with compressive atelectasis. In addition patient was found to have left renal infarct as well as splenic infarcts which were considered to be embolic. Patient's INR was subtherapeutic on the arrival. Thoracentesis as above, cytology was negative for malignancy, concern possibly due to rheumatoid arthritis. Patient is to have follow-up with pulmonology and wants to transfer care to Dr. Mariee. She did develop atrial fib with rapid ventricular rate during the hospital course, which was treated temporarily with diltiazem drip, metoprolol was increased from 25 100 mg twice daily and amiodarone 200 mg twice daily was added with successful rate control. New medications: Discharge planning follow-up: Acute respiratory failure with hypoxia Acute exacerbation chronic pleural effusion Right splenic infarct Decompensated HFpEF Cystic renal mass Paroxysmal atrial fibrillation Leukocytosis Status post thoracentesis Mitral valve annular calcification, 1-2+ insufficiency stable Aortic valve diffuse calcification stable COPD Hypertension Subtherapeutic INR due to holding Coumadin for thoracentesis Medication reconciliation: Metoprolol tartrate 100 mg p.o. twice daily #60/0 Amiodarone 200 mg p.o. twice daily #60/0 Change medications: Warfarin 4 mg p.o. daily Discontinued medications: Warfarin 2 mg Metoprolol tartrate 75 mg p.o. twice daily Continue medications: Multivitamin 1 tablet daily Calcium carbonate 600 mg (1500 mg) tablet 1 p.o. daily Furosemide 40 mg p.o. twice daily Handicap placard Albuterol sulfate 90 MCG per actuation HFA inhaler: 2 puffs every 4 hours as needed shortness of breath Omeprazole 40 mg capsule daily AC Potassium chloride 20 mEq ER: 1 tablet twice daily Diltiazem 2040 mg capsule extended release 24-hour: 1 capsule daily Referral/follow-up: Dr. Flaquito Mariee pulmonology 2 weeks Hypokalemia 07/09/2021 11/08/2022 Hyponatremia 07/09/2021 11/08/2022 Hypoxemia 06/23/2021 11/08/2022 Hypoxia 06/23/2021 11/08/2022 Pleural effusion, right 05/05/202011/2022 Overview: Now seeing Dr. Mariee Thoracic aorta atherosclerosis 03/23/2020 09/23/2020 Chronic systolic heart failure 11/21/2019 09/23/2020 Fatigue 11/24/2016 10/10/2017 Atrial fibrillation 01/14/2014 10/11/19 18 Centrilobular emphysema 01/14/201411/2022 Multiple thyroid nodules 03/03/2011 Hypertension 01/19/2011 06/23/2015 Esophagitis, unspecified 01/13/200901/2018 Gastrointestinal malfunction arising from mental factors 12/09/2008 10/10/2017 Nontoxic multinodular goiter 12/08/2008 05/08/2018 Dysphagia, unspecified(787.20) 05/08/2018 documented as of this encounter (statuses as of 05/05/2023) [facility]04-17-2023 History of Past illness Narrative* Problem Noted Date Diagnosed Date Resolved Date Deviation of international n ormalized ratio (INR) from target range 09/19/2022 11/08/2022 History of surgical procedure 09/19/2022 11/08/2022 Renal infarct 04/19/2022 07/26/2022 Overview: Has seen Dr. Chaney. Needs to just follow up prn. Dehydration 02/03/2022 11/08/2022 Gram-negative bacteremia 02/03/202211/2022 Hypophosphatemia 02/03/2022 11/08/2022 Pneumonia 02/03/2022 11/08/2022 Pyothorax without fistula 02/03/2022 Pleural effusion 01/31/2022 04/19/2022 Abnormal levels of other serum enzymes 11/11/2021 11/08/2022 Elevated liver enzymes 11/11/202111/08 Neoplasm of uncertain behavior of left kidney 09/24/19 22 11/08/2022 Shortness of breath 09/16/2021 11/09/19 Acute respiratory failure 07/22/2021 Chronic passive congestion of liver 07/22/2021 11/08/2022 Cyst of kidney, acquired 07/22/202111/2022 Ischemia and infarction of kidney 07/22/2021 11/08/2022 Overview: Has seen Dr Calvin Leukocytosis 07/22/2021 11/08/2022 Encounter for support and co ordination of transition of care 07/20/2021 07/26/2022 Overview: Facility: [facility] Date of admission 07/14/2021 Date of discharge Prehospital work-up: Presented to 07/14/2021 to [facility] ED complaining of left-sided abdominal pain with multiple symptoms including cough, myalgias, nasal congestion, low dietary intake due to concerns that would aggravate stomach ache. Patient was exposed to Covid 2 weeks prior, unvaccinated. Vital signs: 98.3 X-234-09-143/102-93% RA. Exam description: Tired, alert and nontoxic, normal respiratory effort, mild tenderness left upper quadrant without rebound or guarding. WBC 20.3-Hgb 14-HCT 43-PLT 388-Ig percent 0.5-absolute neutrophil 17 point 3H Lactic acid 1.2. Sodium 131-K3.8-CL 95-CO2 29.0, glucose 133, otherwise CMP is within normal limits. Calcium 9.1. Liver panel: Total bili 1.10H-AST 180-ALT 95-ALP 126-total protein 8.3-Albumin three-point 3-5 and 50.0-lipase 74. 07/14/2021 CT abdomen pelvis: Dilated main and bilateral pulmonary arteries suggesting pulmonary hypertension, moderate volume right pleural effusion with compressive atelectasis at right lower lobe, moderate cardiomegaly with dilated right ventricle and reflux of contrast in IVC suggesting right heart dysfunction. Heterogenous enhancement and decreased density of the left kidney new since CTA on 01/03/2014- may represent renal ischemia/infarction versus pyelonephritis, neoplasm not ruled out. 2.9 superior and lateral left renal cyst with delayed peripheral nodular enhancement suspicious for cystic renal neoplasm, MRI/CT with IV contrast recommended. Splenic infarction, given left renal and splenic infarctions embolic etiology should be considered. Patient was given IV fluids due to tachycardia, patient's anticoagulants were held for thoracentesis, so there were concerns about possible pulmonary emboli, CT was therefore ordered with negative findings. Case was discussed with hospitalist and decision to admit Patient was admitted under Dr. Maddie Nascimento: Acute problem list and plan: 1. Acute hypoxic respiratory failure secondary right-sided pleural effusion with decompensated RV dysfunction, elevated leukocytosis with recent hospitalization could have concurrent pneumonia: We will check strep pneumo, Legionella antigens, flu, RSV, thoracentesis ordered with fluid studies, O2 as needed, continue aerosol, leukocytosis coverage ordered with IV antibiotics. 2. Splenic/renal infarct: Suspected to be related to subtherapeutic INR and atrial fibrillation, heparin drip was started, patient had prior complications with Xarelto, has been on Coumadin but consider trial of Eliquis as an alternative. Echocardiogram ordered. 3. Leukocytosis: Cultures were ordered, empiric antibiotics, lactic acid normal. 4. Recurrent right-sided pleural effusion: May be related to pulmonary artery hypertension, CT shows marked dilatation of central vasculature without PE, echocardiogram ordered. Started on Lasix drip. 5. Decompensated right-sided heart failure: Lasix drip started, follow BMP, sodium restriction, consider right-sided heart cath, pulmonary medicine consult. 6. Cystic renal mass: Concerning for malignancy, abdominal MRI ordered, consult urology 7. PAF: Current atrial fibrillation, heparin drip started, again echocardiogram ordered to check for embolic sources, diltiazem and metoprolol continued. 8. GERD: Continue omeprazole 9. DVT prophylaxis: Heparin drip CODE STATUS: DNR CCA without intubation 07/14/[address] Malika Jain neurologist: increasing left upper quadrant and flank pain, atypical left renal cyst. Assessment and plan: Right renal cyst, renal infarction: No plans for intervention of 3 cm suspicious lesion during this admission, felt he could be done outpatient. 07/15/2021 consultation open soaper tender Dr. Dwayne Garcia: Assessment right pleural effusion: Continue diuretic therapy, empiric antimicrobials, thoracentesis recommended, eventual right heart cath work and secondary work-up for pH outpatient basis. 07/15/2021 echocardiogram: LV size and LV SF WNL, EF 60 to 65%. RV normal size and RV SF EF. Left atrium moderately enlarged, right atrium mildly enlarged. MV: Moderate mitral annular calcification, 1-2+ MA. TV: Normal. AV: Diffuse aortic valve calcification. PV: Not well visualized. Great vessels and aortic root normal. No pericardial effusion. No significant changes from prior echo. 07/15/2021 MR abdomen with and without IV contrast: Large right pleural effusion, moderate cardiomegaly, distended inferior vena cava and hepatic veins indicative of right-sided heart failure. Scarring of spleen related to old ischemia trauma, multiple nonenhancing lesions in the left kidney identified with contrast which may be related to inflammatory or infectious process 07/16/2021: Ultrasound-guided thoracentesis Dr. Gary Reyes: 670 mL of blood-tinged cloudy fluid drained and sent for analysis Chest x-ray following: Status post right thoracentesis no evidence of hemothorax, residual blunting of right costophrenic angle. Pertinent lab summary: 07/14/2021 blood cultures x2 sites showed no growth over 5 days. Urine clean catch for Legionella and Streptococcus pneumonia both negative. Nasal swab for rapid RSV and influenza as well as SARS Covid-2 all negative. 07/22/2021 WBC 10.2-Hgb 12.1-HCT 37-PLT 338. Chemistries: NA 136-K4.3-CL 102-CO2 30-BUN 14-CRE 0.94-GLU 90 Discharge weight 59.1 kg, BMI 26.4 Hospital course: Hospital course: Noted to be hypoxic 88% on arrival, CT showed moderate right pleural effusion with compressive atelectasis. In addition patient was found to have left renal infarct as well as splenic infarcts which were considered to be embolic. Patient's INR was subtherapeutic on the arrival. Thoracentesis as above, cytology was negative for malignancy, concern possibly due to rheumatoid arthritis. Patient is to have follow-up with pulmonology and wants to transfer care to Dr. Mariee. She did develop atrial fib with rapid ventricular rate during the hospital course, which was treated temporarily with diltiazem drip, metoprolol was increased from 25 100 mg twice daily and amiodarone 200 mg twice daily was added with successful rate control. New medications: Discharge planning follow-up: Acute respiratory failure with hypoxia Acute exacerbation chronic pleural effusion Right splenic infarct Decompensated HFpEF Cystic renal mass Paroxysmal atrial fibrillation Leukocytosis Status post thoracentesis Mitral valve annular calcification, 1-2+ insufficiency stable Aortic valve diffuse calcification stable COPD Hypertension Subtherapeutic INR due to holding Coumadin for thoracentesis Medication reconciliation: Metoprolol tartrate 100 mg p.o. twice daily #60/0 Amiodarone 200 mg p.o. twice daily #60/0 Change medications: Warfarin 4 mg p.o. daily Discontinued medications: Warfarin 2 mg Metoprolol tartrate 75 mg p.o. twice daily Continue medications: Multivitamin 1 tablet daily Calcium carbonate 600 mg (1500 mg) tablet 1 p.o. daily Furosemide 40 mg p.o. twice daily Handicap placard Albuterol sulfate 90 MCG per actuation HFA inhaler: 2 puffs every 4 hours as needed shortness of breath Omeprazole 40 mg capsule daily AC Potassium chloride 20 mEq ER: 1 tablet twice daily Diltiazem 2040 mg capsule extended release 24-hour: 1 capsule daily Referral/follow-up: Dr. Flaquito Mariee pulmonology 2 weeks Hypokalemia 07/09/2021 11/08/2022 Hyponatremia 07/09/2021 11/08/2022 Hypoxemia 06/23/2021 11/08/2022 Hypoxia 06/23/2021 11/08/2022 Pleural effusion, right 05/05/20200 11/2022 Overview: Now seeing Dr. Mariee Thoracic aorta atherosclerosis 03/23/2020 09/23/2020 Chronic systolic heart failure 11/21/2019 09/23/2020 Fatigue 11/24/2016 10/10/2017 Atrial fibrillation 01/14/2014 10/11/19 Centrilobular emphysema 01/14/201411/2022 Multiple thyroid nodules 03/03/2011 Hypertension 01/19/2011 06/23/2015 Esophagitis, unspecified 01/13/200901/2018 Gastrointestinal malfunction arising from mental factors 12/09/2008 10/10/2017 Nontoxic multinodular goiter 12/08/2008 05/08/2018 Dysphagia, unspecified(787.20) 05/08/2018 documented as of this encounter (statuses as of 05/10/2023) [facility]04-17-2023 History of Past illness Narrative* Problem Noted Date Diagnosed Date Resolved Date Deviation of international n ormalized ratio (INR) from target range 09/19/2022 11/08/2022 History of surgical procedure 09/19/2022 11/08/2022 Renal infarct 04/19/2022 07/26/2022 Overview: Has seen Dr. Chaney. Needs to just follow up prn. Dehydration 02/03/2022 11/08/2022 Gram-negative bacteremia 02/03/202211/2022 Hypophosphatemia 02/03/2022 11/08/2022 Pneumonia 02/03/2022 11/08/2022 Pyothorax without fistula 02/03/2022 Pleural effusion 01/31/2022 04/19/2022 Abnormal levels of other serum enzymes 11/11/2021 11/08/2022 Elevated liver enzymes 11/11/202111/08 Neoplasm of uncertain behavior of left kidney 09/24/19 22 11/08/2022 Shortness of breath 09/16/2021 11/09/19 23 Acute respiratory failure 07/22/2021 Chronic passive congestion of liver 07/22/2021 11/08/2022 Cyst of kidney, acquired 07/22/202111/2022 Ischemia and infarction of kidney 07/22/2021 11/08/2022 Overview: Has seen Dr Calvin Leukocytosis 07/22/2021 11/08/2022 Encounter for support and co ordination of transition of care 07/20/2021 07/26/2022 Overview: Facility: [facility] Date of admission 07/14/2021 Date of discharge Prehospital work-up: Presented to 07/14/2021 to [facility] ED complaining of left-sided abdominal pain with multiple symptoms including cough, myalgias, nasal congestion, low dietary intake due to concerns that would aggravate stomach ache. Patient was exposed to Covid 2 weeks prior, unvaccinated. Vital signs: 98.3 [id number]/102-93% RA. Exam description: Tired, alert and nontoxic, normal respiratory effort, mild tenderness left upper quadrant without rebound or guarding. WBC 20.3-Hgb 14-HCT 43-PLT 388-Ig percent 0.5-absolute neutrophil 17 point 3H Lactic acid 1.2. Sodium 131-K3.8-CL 95-CO2 29.0, glucose 133, otherwise CMP is within normal limits. Calcium 9.1. Liver panel: Total bili 1.10H-AST 180-ALT 95-ALP 126-total protein 8.3-Albumin three-point 3-5 and 50.0-lipase 74. 07/14/2021 CT abdomen pelvis: Dilated main and bilateral pulmonary arteries suggesting pulmonary hypertension, moderate volume right pleural effusion with compressive atelectasis at right lower lobe, moderate cardiomegaly with dilated right ventricle and reflux of contrast in IVC suggesting right heart dysfunction. Heterogenous enhancement and decreased density of the left kidney new since CTA on 01/03/2014- may represent renal ischemia/infarction versus pyelonephritis, neoplasm not ruled out. 2.9 superior and lateral left renal cyst with delayed peripheral nodular enhancement suspicious for cystic renal neoplasm, MRI/CT with IV contrast recommended. Splenic infarction, given left renal and splenic infarctions embolic etiology should be considered. Patient was given IV fluids due to tachycardia, patient's anticoagulants were held for thoracentesis, so there were concerns about possible pulmonary emboli, CT was therefore ordered with negative findings. Case was discussed with hospitalist and decision to admit Patient was admitted under Dr. Maddie Nascimento: Acute problem list and plan: 1. Acute hypoxic respiratory failure secondary right-sided pleural effusion with decompensated RV dysfunction, elevated leukocytosis with recent hospitalization could have concurrent pneumonia: We will check strep pneumo, Legionella antigens, flu, RSV, thoracentesis ordered with fluid studies, O2 as needed, continue aerosol, leukocytosis coverage ordered with IV antibiotics. 2. Splenic/renal infarct: Suspected to be related to subtherapeutic INR and atrial fibrillation, heparin drip was started, patient had prior complications with Xarelto, has been on Coumadin but consider trial of Eliquis as an alternative. Echocardiogram ordered. 3. Leukocytosis: Cultures were ordered, empiric antibiotics, lactic acid normal. 4. Recurrent right-sided pleural effusion: May be related to pulmonary artery hypertension, CT shows marked dilatation of central vasculature without PE, echocardiogram ordered. Started on Lasix drip. 5. Decompensated right-sided heart failure: Lasix drip started, follow BMP, sodium restriction, consider right-sided heart cath, pulmonary medicine consult. 6. Cystic renal mass: Concerning for malignancy, abdominal MRI ordered, consult urology 7. PAF: Current atrial fibrillation, heparin drip started, again echocardiogram ordered to check for embolic sources, diltiazem and metoprolol continued. 8. GERD: Continue omeprazole 9. DVT prophylaxis: Heparin drip CODE STATUS: DNR CCA without intubation 07/14/[address] Malika Jain neurologist: increasing left upper quadrant and flank pain, atypical left renal cyst. Assessment and plan: Right renal cyst, renal infarction: No plans for intervention of 3 cm suspicious lesion during this admission, felt he could be done outpatient. 07/15/2021 consultation open soaper tender Dr. Dwayne Garcia: Assessment right pleural effusion: Continue diuretic therapy, empiric antimicrobials, thoracentesis recommended, eventual right heart cath work and secondary work-up for pH outpatient basis. 07/15/2021 echocardiogram: LV size and LV SF WNL, EF 60 to 65%. RV normal size and RV SF EF. Left atrium moderately enlarged, right atrium mildly enlarged. MV: Moderate mitral annular calcification, 1-2+ MA. TV: Normal. AV: Diffuse aortic valve calcification. PV: Not well visualized. Great vessels and aortic root normal. No pericardial effusion. No significant changes from prior echo. 07/15/2021 MR abdomen with and without IV contrast: Large right pleural effusion, moderate cardiomegaly, distended inferior vena cava and hepatic veins indicative of right-sided heart failure. Scarring of spleen related to old ischemia trauma, multiple nonenhancing lesions in the left kidney identified with contrast which may be related to inflammatory or infectious process 07/16/2021: Ultrasound-guided thoracentesis Dr. Gary Reyes: 670 mL of blood-tinged cloudy fluid drained and sent for analysis Chest x-ray following: Status post right thoracentesis no evidence of hemothorax, residual blunting of right costophrenic angle. Pertinent lab summary: 07/14/2021 blood cultures x2 sites showed no growth over 5 days. Urine clean catch for Legionella and Streptococcus pneumonia both negative. Nasal swab for rapid RSV and influenza as well as SARS Covid-2 all negative. 07/22/2021 WBC 10.2-Hgb 12.1-HCT 37-PLT 338. Chemistries: NA 136-K4.3-CL 102-CO2 30-BUN 14-CRE 0.94-GLU 90 Discharge weight 59.1 kg, BMI 26.4 Hospital course: Hospital course: Noted to be hypoxic 88% on arrival, CT showed moderate right pleural effusion with compressive atelectasis. In addition patient was found to have left renal infarct as well as splenic infarcts which were considered to be embolic. Patient's INR was subtherapeutic on the arrival. Thoracentesis as above, cytology was negative for malignancy, concern possibly due to rheumatoid arthritis. Patient is to have follow-up with pulmonology and wants to transfer care to Dr. Mariee. She did develop atrial fib with rapid ventricular rate during the hospital course, which was treated temporarily with diltiazem drip, metoprolol was increased from 25 100 mg twice daily and amiodarone 200 mg twice daily was added with successful rate control. New medications: Discharge planning follow-up: Acute respiratory failure with hypoxia Acute exacerbation chronic pleural effusion Right splenic infarct Decompensated HFpEF Cystic renal mass Paroxysmal atrial fibrillation Leukocytosis Status post thoracentesis Mitral valve annular calcification, 1-2+ insufficiency stable Aortic valve diffuse calcification stable COPD Hypertension Subtherapeutic INR due to holding Coumadin for thoracentesis Medication reconciliation: Metoprolol tartrate 100 mg p.o. twice daily #60/0 Amiodarone 200 mg p.o. twice daily #60/0 Change medications: Warfarin 4 mg p.o. daily Discontinued medications: Warfarin 2 mg Metoprolol tartrate 75 mg p.o. twice daily Continue medications: Multivitamin 1 tablet daily Calcium carbonate 600 mg (1500 mg) tablet 1 p.o. daily Furosemide 40 mg p.o. twice daily Handicap placard Albuterol sulfate 90 MCG per actuation HFA inhaler: 2 puffs every 4 hours as needed shortness of breath Omeprazole 40 mg capsule daily AC Potassium chloride 20 mEq ER: 1 tablet twice daily Diltiazem 2040 mg capsule extended release 24-hour: 1 capsule daily Referral/follow-up: Dr. Flaquito Mariee pulmonology 2 weeks Hypokalemia 07/09/2021 11/08/2022 Hyponatremia 07/09/2021 11/08/2022 Hypoxemia 06/23/2021 11/08/2022 Hypoxia 06/23/2021 11/08/2022 Pleural effusion, right 05/05/202011/2022 Overview: Now seeing Dr. Mariee Thoracic aorta atherosclerosis 03/23/2020 09/23/2020 Chronic systolic heart failure 11/21/2019 09/23/2020 Fatigue 11/24/2016 10/10/2017 Atrial fibrillation 01/14/2014 10/11/19 18 Centrilobular emphysema 01/14/201411/2022 Multiple thyroid nodules 03/03/2011 Hypertension 01/19/2011 06/23/2015 Esophagitis, unspecified 01/13/200901/2018 Gastrointestinal malfunction arising from mental factors 12/09/2008 10/10/2017 Nontoxic multinodular goiter 12/08/2008 05/08/2018 Dysphagia, unspecified(787.20) 05/08/2018 documented as of this encounter (statuses as of 05/11/2023) [facility]04-17-2023 History of Past illness Narrative* Problem Noted Date Diagnosed Date Resolved Date Deviation of international n ormalized ratio (INR) from target range 09/19/2022 11/08/2022 History of surgical procedure 09/19/2022 11/08/2022 Renal infarct 04/19/2022 07/26/2022 Overview: Has seen Dr. Chaney. Needs to just follow up prn. Dehydration 02/03/2022 11/08/2022 Gram-negative bacteremia 02/03/202211/2022 Hypophosphatemia 02/03/2022 11/08/2022 Pneumonia 02/03/2022 11/08/2022 Pyothorax without fistula 02/03/2022 Pleural effusion 01/31/2022 04/19/2022 Abnormal levels of other serum enzymes 11/11/2021 11/08/2022 Elevated liver enzymes 11/11/202111/08 Neoplasm of uncertain behavior of left kidney 09/24/19 22 11/08/2022 Shortness of breath 09/16/2021 11/09/19 Acute respiratory failure 07/22/2021 Chronic passive congestion of liver 07/22/2021 11/08/2022 Cyst of kidney, acquired 07/22/202111/2022 Ischemia and infarction of kidney 07/22/2021 11/08/2022 Overview: Has seen Dr Calvin Leukocytosis 07/22/2021 11/08/2022 Encounter for support and co ordination of transition of care 07/20/2021 07/26/2022 Overview: Facility: [facility] Date of admission 07/14/2021 Date of discharge Prehospital work-up: Presented to 07/14/2021 to [facility] ED complaining of left-sided abdominal pain with multiple symptoms including cough, myalgias, nasal congestion, low dietary intake due to concerns that would aggravate stomach ache. Patient was exposed to Covid 2 weeks prior, unvaccinated. Vital signs: 98.3 E-118-98-143/102-93% RA. Exam description: Tired, alert and nontoxic, normal respiratory effort, mild tenderness left upper quadrant without rebound or guarding. WBC 20.3-Hgb 14-HCT 43-PLT 388-Ig percent 0.5-absolute neutrophil 17 point 3H Lactic acid 1.2. Sodium 131-K3.8-CL 95-CO2 29.0, glucose 133, otherwise CMP is within normal limits. Calcium 9.1. Liver panel: Total bili 1.10H-AST 180-ALT 95-ALP 126-total protein 8.3-Albumin three-point 3-5 and 50.0-lipase 74. 07/14/2021 CT abdomen pelvis: Dilated main and bilateral pulmonary arteries suggesting pulmonary hypertension, moderate volume right pleural effusion with compressive atelectasis at right lower lobe, moderate cardiomegaly with dilated right ventricle and reflux of contrast in IVC suggesting right heart dysfunction. Heterogenous enhancement and decreased density of the left kidney new since CTA on 01/03/2014- may represent renal ischemia/infarction versus pyelonephritis, neoplasm not ruled out. 2.9 superior and lateral left renal cyst with delayed peripheral nodular enhancement suspicious for cystic renal neoplasm, MRI/CT with IV contrast recommended. Splenic infarction, given left renal and splenic infarctions embolic etiology should be considered. Patient was given IV fluids due to tachycardia, patient's anticoagulants were held for thoracentesis, so there were concerns about possible pulmonary emboli, CT was therefore ordered with negative findings. Case was discussed with hospitalist and decision to admit Patient was admitted under Dr. Maddie Nascimento: Acute problem list and plan: 1. Acute hypoxic respiratory failure secondary right-sided pleural effusion with decompensated RV dysfunction, elevated leukocytosis with recent hospitalization could have concurrent pneumonia: We will check strep pneumo, Legionella antigens, flu, RSV, thoracentesis ordered with fluid studies, O2 as needed, continue aerosol, leukocytosis coverage ordered with IV antibiotics. 2. Splenic/renal infarct: Suspected to be related to subtherapeutic INR and atrial fibrillation, heparin drip was started, patient had prior complications with Xarelto, has been on Coumadin but consider trial of Eliquis as an alternative. Echocardiogram ordered. 3. Leukocytosis: Cultures were ordered, empiric antibiotics, lactic acid normal. 4. Recurrent right-sided pleural effusion: May be related to pulmonary artery hypertension, CT shows marked dilatation of central vasculature without PE, echocardiogram ordered. Started on Lasix drip. 5. Decompensated right-sided heart failure: Lasix drip started, follow BMP, sodium restriction, consider right-sided heart cath, pulmonary medicine consult. 6. Cystic renal mass: Concerning for malignancy, abdominal MRI ordered, consult urology 7. PAF: Current atrial fibrillation, heparin drip started, again echocardiogram ordered to check for embolic sources, diltiazem and metoprolol continued. 8. GERD: Continue omeprazole 9. DVT prophylaxis: Heparin drip CODE STATUS: DNR CCA without intubation 07/14/[address] Malika Jain neurologist: increasing left upper quadrant and flank pain, atypical left renal cyst. Assessment and plan: Right renal cyst, renal infarction: No plans for intervention of 3 cm suspicious lesion during this admission, felt he could be done outpatient. 07/15/2021 consultation open soaper tender Dr. Dwayne Garcia: Assessment right pleural effusion: Continue diuretic therapy, empiric antimicrobials, thoracentesis recommended, eventual right heart cath work and secondary work-up for pH outpatient basis. 07/15/2021 echocardiogram: LV size and LV SF WNL, EF 60 to 65%. RV normal size and RV SF EF. Left atrium moderately enlarged, right atrium mildly enlarged. MV: Moderate mitral annular calcification, 1-2+ MA. TV: Normal. AV: Diffuse aortic valve calcification. PV: Not well visualized. Great vessels and aortic root normal. No pericardial effusion. No significant changes from prior echo. 07/15/2021 MR abdomen with and without IV contrast: Large right pleural effusion, moderate cardiomegaly, distended inferior vena cava and hepatic veins indicative of right-sided heart failure. Scarring of spleen related to old ischemia trauma, multiple nonenhancing lesions in the left kidney identified with contrast which may be related to inflammatory or infectious process 07/16/2021: Ultrasound-guided thoracentesis Dr. Gary Reyes: 670 mL of blood-tinged cloudy fluid drained and sent for analysis Chest x-ray following: Status post right thoracentesis no evidence of hemothorax, residual blunting of right costophrenic angle. Pertinent lab summary: 07/14/2021 blood cultures x2 sites showed no growth over 5 days. Urine clean catch for Legionella and Streptococcus pneumonia both negative. Nasal swab for rapid RSV and influenza as well as SARS Covid-2 all negative. 07/22/2021 WBC 10.2-Hgb 12.1-HCT 37-PLT 338. Chemistries: NA 136-K4.3-CL 102-CO2 30-BUN 14-CRE 0.94-GLU 90 Discharge weight 59.1 kg, BMI 26.4 Hospital course: Hospital course: Noted to be hypoxic 88% on arrival, CT showed moderate right pleural effusion with compressive atelectasis. In addition patient was found to have left renal infarct as well as splenic infarcts which were considered to be embolic. Patient's INR was subtherapeutic on the arrival. Thoracentesis as above, cytology was negative for malignancy, concern possibly due to rheumatoid arthritis. Patient is to have follow-up with pulmonology and wants to transfer care to Dr. Mariee. She did develop atrial fib with rapid ventricular rate during the hospital course, which was treated temporarily with diltiazem drip, metoprolol was increased from 25 100 mg twice daily and amiodarone 200 mg twice daily was added with successful rate control. New medications: Discharge planning follow-up: Acute respiratory failure with hypoxia Acute exacerbation chronic pleural effusion Right splenic infarct Decompensated HFpEF Cystic renal mass Paroxysmal atrial fibrillation Leukocytosis Status post thoracentesis Mitral valve annular calcification, 1-2+ insufficiency stable Aortic valve diffuse calcification stable COPD Hypertension Subtherapeutic INR due to holding Coumadin for thoracentesis Medication reconciliation: Metoprolol tartrate 100 mg p.o. twice daily #60/0 Amiodarone 200 mg p.o. twice daily #60/0 Change medications: Warfarin 4 mg p.o. daily Discontinued medications: Warfarin 2 mg Metoprolol tartrate 75 mg p.o. twice daily Continue medications: Multivitamin 1 tablet daily Calcium carbonate 600 mg (1500 mg) tablet 1 p.o. daily Furosemide 40 mg p.o. twice daily Handicap placard Albuterol sulfate 90 MCG per actuation HFA inhaler: 2 puffs every 4 hours as needed shortness of breath Omeprazole 40 mg capsule daily AC Potassium chloride 20 mEq ER: 1 tablet twice daily Diltiazem 2040 mg capsule extended release 24-hour: 1 capsule daily Referral/follow-up: Dr. Flaquito Mariee pulmonology 2 weeks Hypokalemia 07/09/2021 11/08/2022 Hyponatremia 07/09/2021 11/08/2022 Hypoxemia 06/23/2021 11/08/2022 Hypoxia 06/23/2021 11/08/2022 Pleural effusion, right 05/05/20200 11/2022 Overview: Now seeing Dr. Mariee Thoracic aorta atherosclerosis 03/23/2020 09/23/2020 Chronic systolic heart failure 11/21/2019 09/23/2020 Fatigue 11/24/2016 10/10/2017 Atrial fibrillation 01/14/2014 10/11/19 Centrilobular emphysema 01/14/201411/2022 Multiple thyroid nodules 03/03/2011 Hypertension 01/19/2011 06/23/2015 Esophagitis, unspecified 01/13/200901/2018 Gastrointestinal malfunction arising from mental factors 12/09/2008 10/10/2017 Nontoxic multinodular goiter 12/08/2008 05/08/2018 Dysphagia, unspecified(787.20) 05/08/2018 documented as of this encounter (statuses as of 05/13/2023) [facility]04-17-2023 History of Past illness Narrative* Problem Noted Date Diagnosed Date Resolved Date Deviation of international n ormalized ratio (INR) from target range 09/19/2022 11/08/2022 History of surgical procedure 09/19/2022 11/08/2022 Renal infarct 04/19/2022 07/26/2022 Overview: Has seen Dr. Chaney. Needs to just follow up prn. Dehydration 02/03/2022 11/08/2022 Gram-negative bacteremia 02/03/202211/2022 Hypophosphatemia 02/03/2022 11/08/2022 Pneumonia 02/03/2022 11/08/2022 Pyothorax without fistula 02/03/2022 Pleural effusion 01/31/2022 04/19/2022 Abnormal levels of other serum enzymes 11/11/2021 11/08/2022 Elevated liver enzymes 11/11/202111/08 Neoplasm of uncertain behavior of left kidney 09/24/19 22 11/08/2022 Shortness of breath 09/16/2021 11/09/19 23 Acute respiratory failure 07/22/2021 Chronic passive congestion of liver 07/22/2021 11/08/2022 Cyst of kidney, acquired 07/22/202111/2022 Ischemia and infarction of kidney 07/22/2021 11/08/2022 Overview: Has seen Dr Calvin Leukocytosis 07/22/2021 11/08/2022 Encounter for support and co ordination of transition of care 07/20/2021 07/26/2022 Overview: Facility: [facility] Date of admission 07/14/2021 Date of discharge Prehospital work-up: Presented to 07/14/2021 to [facility] ED complaining of left-sided abdominal pain with multiple symptoms including cough, myalgias, nasal congestion, low dietary intake due to concerns that would aggravate stomach ache. Patient was exposed to Covid 2 weeks prior, unvaccinated. Vital signs: 98.3 A-392-53-143/102-93% RA. Exam description: Tired, alert and nontoxic, normal respiratory effort, mild tenderness left upper quadrant without rebound or guarding. WBC 20.3-Hgb 14-HCT 43-PLT 388-Ig percent 0.5-absolute neutrophil 17 point 3H Lactic acid 1.2. Sodium 131-K3.8-CL 95-CO2 29.0, glucose 133, otherwise CMP is within normal limits. Calcium 9.1. Liver panel: Total bili 1.10H-AST 180-ALT 95-ALP 126-total protein 8.3-Albumin three-point 3-5 and 50.0-lipase 74. 07/14/2021 CT abdomen pelvis: Dilated main and bilateral pulmonary arteries suggesting pulmonary hypertension, moderate volume right pleural effusion with compressive atelectasis at right lower lobe, moderate cardiomegaly with dilated right ventricle and reflux of contrast in IVC suggesting right heart dysfunction. Heterogenous enhancement and decreased density of the left kidney new since CTA on 01/03/2014- may represent renal ischemia/infarction versus pyelonephritis, neoplasm not ruled out. 2.9 superior and lateral left renal cyst with delayed peripheral nodular enhancement suspicious for cystic renal neoplasm, MRI/CT with IV contrast recommended. Splenic infarction, given left renal and splenic infarctions embolic etiology should be considered. Patient was given IV fluids due to tachycardia, patient's anticoagulants were held for thoracentesis, so there were concerns about possible pulmonary emboli, CT was therefore ordered with negative findings. Case was discussed with hospitalist and decision to admit Patient was admitted under Dr. Maddie Nascimento: Acute problem list and plan: 1. Acute hypoxic respiratory failure secondary right-sided pleural effusion with decompensated RV dysfunction, elevated leukocytosis with recent hospitalization could have concurrent pneumonia: We will check strep pneumo, Legionella antigens, flu, RSV, thoracentesis ordered with fluid studies, O2 as needed, continue aerosol, leukocytosis coverage ordered with IV antibiotics. 2. Splenic/renal infarct: Suspected to be related to subtherapeutic INR and atrial fibrillation, heparin drip was started, patient had prior complications with Xarelto, has been on Coumadin but consider trial of Eliquis as an alternative. Echocardiogram ordered. 3. Leukocytosis: Cultures were ordered, empiric antibiotics, lactic acid normal. 4. Recurrent right-sided pleural effusion: May be related to pulmonary artery hypertension, CT shows marked dilatation of central vasculature without PE, echocardiogram ordered. Started on Lasix drip. 5. Decompensated right-sided heart failure: Lasix drip started, follow BMP, sodium restriction, consider right-sided heart cath, pulmonary medicine consult. 6. Cystic renal mass: Concerning for malignancy, abdominal MRI ordered, consult urology 7. PAF: Current atrial fibrillation, heparin drip started, again echocardiogram ordered to check for embolic sources, diltiazem and metoprolol continued. 8. GERD: Continue omeprazole 9. DVT prophylaxis: Heparin drip CODE STATUS: DNR CCA without intubation 07/14/[address] Malika Jain neurologist: increasing left upper quadrant and flank pain, atypical left renal cyst. Assessment and plan: Right renal cyst, renal infarction: No plans for intervention of 3 cm suspicious lesion during this admission, felt he could be done outpatient. 07/15/2021 consultation open soaper tender Dr. Dwayne Garcia: Assessment right pleural effusion: Continue diuretic therapy, empiric antimicrobials, thoracentesis recommended, eventual right heart cath work and secondary work-up for pH outpatient basis. 07/15/2021 echocardiogram: LV size and LV SF WNL, EF 60 to 65%. RV normal size and RV SF EF. Left atrium moderately enlarged, right atrium mildly enlarged. MV: Moderate mitral annular calcification, 1-2+ MA. TV: Normal. AV: Diffuse aortic valve calcification. PV: Not well visualized. Great vessels and aortic root normal. No pericardial effusion. No significant changes from prior echo. 07/15/2021 MR abdomen with and without IV contrast: Large right pleural effusion, moderate cardiomegaly, distended inferior vena cava and hepatic veins indicative of right-sided heart failure. Scarring of spleen related to old ischemia trauma, multiple nonenhancing lesions in the left kidney identified with contrast which may be related to inflammatory or infectious process 07/16/2021: Ultrasound-guided thoracentesis Dr. Gary Reyes: 670 mL of blood-tinged cloudy fluid drained and sent for analysis Chest x-ray following: Status post right thoracentesis no evidence of hemothorax, residual blunting of right costophrenic angle. Pertinent lab summary: 07/14/2021 blood cultures x2 sites showed no growth over 5 days. Urine clean catch for Legionella and Streptococcus pneumonia both negative. Nasal swab for rapid RSV and influenza as well as SARS Covid-2 all negative. 07/22/2021 WBC 10.2-Hgb 12.1-HCT 37-PLT 338. Chemistries: NA 136-K4.3-CL 102-CO2 30-BUN 14-CRE 0.94-GLU 90 Discharge weight 59.1 kg, BMI 26.4 Hospital course: Hospital course: Noted to be hypoxic 88% on arrival, CT showed moderate right pleural effusion with compressive atelectasis. In addition patient was found to have left renal infarct as well as splenic infarcts which were considered to be embolic. Patient's INR was subtherapeutic on the arrival. Thoracentesis as above, cytology was negative for malignancy, concern possibly due to rheumatoid arthritis. Patient is to have follow-up with pulmonology and wants to transfer care to Dr. Mariee. She did develop atrial fib with rapid ventricular rate during the hospital course, which was treated temporarily with diltiazem drip, metoprolol was increased from 25 100 mg twice daily and amiodarone 200 mg twice daily was added with successful rate control. New medications: Discharge planning follow-up: Acute respiratory failure with hypoxia Acute exacerbation chronic pleural effusion Right splenic infarct Decompensated HFpEF Cystic renal mass Paroxysmal atrial fibrillation Leukocytosis Status post thoracentesis Mitral valve annular calcification, 1-2+ insufficiency stable Aortic valve diffuse calcification stable COPD Hypertension Subtherapeutic INR due to holding Coumadin for thoracentesis Medication reconciliation: Metoprolol tartrate 100 mg p.o. twice daily #60/0 Amiodarone 200 mg p.o. twice daily #60/0 Change medications: Warfarin 4 mg p.o. daily Discontinued medications: Warfarin 2 mg Metoprolol tartrate 75 mg p.o. twice daily Continue medications: Multivitamin 1 tablet daily Calcium carbonate 600 mg (1500 mg) tablet 1 p.o. daily Furosemide 40 mg p.o. twice daily Handicap placard Albuterol sulfate 90 MCG per actuation HFA inhaler: 2 puffs every 4 hours as needed shortness of breath Omeprazole 40 mg capsule daily AC Potassium chloride 20 mEq ER: 1 tablet twice daily Diltiazem 2040 mg capsule extended release 24-hour: 1 capsule daily Referral/follow-up: Dr. Flaquito Mariee pulmonology 2 weeks Hypokalemia 07/09/2021 11/08/2022 Hyponatremia 07/09/2021 11/08/2022 Hypoxemia 06/23/2021 11/08/2022 Hypoxia 06/23/2021 11/08/2022 Pleural effusion, right 05/05/202011/2022 Overview: Now seeing Dr. Mariee Thoracic aorta atherosclerosis 03/23/2020 09/23/2020 Chronic systolic heart failure 11/21/2019 09/23/2020 Fatigue 11/24/2016 10/10/2017 Atrial fibrillation 01/14/2014 10/11/19 18 Centrilobular emphysema 01/14/201411/2022 Multiple thyroid nodules 03/03/2011 Hypertension 01/19/2011 06/23/2015 Esophagitis, unspecified 01/13/200901/2018 Gastrointestinal malfunction arising from mental factors 12/09/2008 10/10/2017 Nontoxic multinodular goiter 12/08/2008 05/08/2018 Dysphagia, unspecified(787.20) 05/08/2018 documented as of this encounter (statuses as of 05/26/2023) [facility]04-03-2023 NoteHNO ID: [id number] Author: Apoorva Palma RDMS Service: ? Author Type: Soft Shoe Dancer Type: Progress Notes Filed: 09/05/2022 2:26 PM Note Text: Radiology Service Progress Note PATIENT NAME: Nimisha Ceja DATE OF SERVICE: September 05, 2022 TIME: 2:26 PM PATIENT IDENTITY VERIFICATION COMPLETED USING TWO (2) IDENTIFIERS: Name and Date of confirmed by patient verbally. FALL SCREENING: Has the patient had 2 falls in the last year or 1 fall with injury or currently using an Ambulatory Assistive Device (Walker, Cane, Wheelchair, Crutches, etc.)? Yes, Patient High Risk for Falls What interventions were put in place to prevent falls during this visit? Instructed Patient to Call for Help if Needed, Offered Assistance with Transfers/Clothing, Instructed Patient to Remain Seated (Not on Exam Table) Until Exam, and Increased Observations by Caregivers PATIENT GENDER DATA: Female. status: : No status: NO. PATIENT RELEVANT IMPLANT DATA REVIEWED: Not Applicable RADIOLOGY DEPARTMENT: Ultrasound PERIPHERAL IV DATA: Not applicable SIGNED BY: Apoorva Palma RDMS RVT September 05, 2022 2:26 [facility]04-03-2023 History of Present illness Narrative* Apoorva Palma RDMS - 09/05/2022 1:45 PM EDT Radiology Service Progress Note PATIENT NAME: Nimisha Ceja DATE OF SERVICE: September 05, 2022 TIME: 2:26 PM PATIENT IDENTITY VERIFICATION COMPLETED USING TWO (2) IDENTIFIERS: Name and Date of confirmedby patient verbally. FALL SCREENING: Has the patient had 2 falls in the last year or 1 fall with injury or currently using an Ambulatory Assistive Device (Walker, Cane, Wheelchair, Crutches, etc.)? Yes, Patient High Riskfor Falls What interventions were put in place to prevent falls during this visit? Instructed Patient to Callfor Help if Needed, Offered Assistance with Transfers/Clothing, Instructed Patient to Remain Seated(Not on Exam Table) Until Exam, and Increased Observations by Caregivers PATIENT GENDER DATA: Female. status: : No status: NO. PATIENT RELEVANT IMPLANT DATA REVIEWED: Not Applicable RADIOLOGY DEPARTMENT: Ultrasound PERIPHERAL IV DATA: Not applicable SIGNED BY: Apoorva Palma RDMS RVT September 05, 2022 2:26 PM documented in [facility] encounterReg[facility]23 NoteHNO ID: [id number] Author: Wes Bonilla MD Service: ? Author Type: Physician Type: Progress Notes Filed: 09/01/2022 3:21 PM Note Text: Patient presents with: Follow Up: 4 week follow up HPI: Patient presents today for office visit for follow up. See previous ov: Back Pain: Some improvement from compression fractrace. Has to be careful with movement. Using Miacalcin and fitted for back brace will be a couple weeks before it is here. MRI is scheduled. Pain is improving. Not having much discomfort at this point. No numbness or weakness. No shortness of breath. No chest pain. No edema. Compression fx follow up. Scheduled to see pain management in October. Using her back brace when she is up and that helps her. Taking Tylenol and using Micalcin as ordered. Picking up gabapentin today. Discussed her mri. Pain is not bad unless she is changing positions. No numbness or weakness in the legs. No shortness of breath. No abd pain. No gi or gu issues. Reviewed her mri. No further falls. Is using her cane. See MRI: Imaging findings suggesting acute or subacute compression deformities involving the T8, T9, and T11 vertebral bodies with up to 10%, 50%, and 10% loss of vertebral body height respectively and no significant osseous retropulsion. Mild chronic compression deformity of the T12 vertebral body without significant osseous retropulsion. Minor degenerative changes without high-grade canal or foraminal narrowing. Round T2 hyperintense hepatic lesions incidentally noted, incompletely characterized, though perhaps cysts or hemangiomas. Small T2 hyperintense renal foci also noted, incompletely characterized, though likely cysts. Trace pleural effusions. Otherwise, unremarkable MRI thoracic spine without contrast. Anatomic Thoracic/Lumbar Variant: None. L4-5 is considered the level of the iliac crest and assume there are 5 lumbar-type vertebrae MEDICATIONS: Current Outpatient Medications Medication Sig gabapentin (NEURONTIN) 100 mg capsule Take 1 capsule by mouth daily at bedtime for 90 days. calcitonin,salmon, (MIACALCIN, FORTICAL) 200 unit/actuation nasal spray Use 1 Baldwin in the nose once daily. Back Brace misc 1 Each once daily. Custom made Metaxalone 400 mg tab Take 1 tablet by mouth three times daily as needed. omeprazole (PRILOSEC) 40 mg capsule Take 1 capsule by mouth once daily. metoprolol tartrate, short acting, (LOPRESSOR) 50 mg tablet Take 1 tablet by mouth twice daily. warfarin (COUMADIN) 4 mg tablet 4 mg on , , , 2 mg all other days. (Patient taking differently: 4 mg on , W, 2 mg all other days-pt started this dosing on 02/18/22.) amiodarone (PACERONE) 200 mg tablet Take 0.5 tablets by mouth once daily. dilTIAZem CD (CARDIZEM CD, CARTIA XT) 240 mg 24 hr capsule Take 240 mg by mouth once daily. furosemide (LASIX) 40 mg tablet Take 1 tablet by mouth twice daily. WALKER ROLLATOR SEAT WITH 6 WHEELS - RED Daily use R26.81 Gait instability (primary encounter diagnosis) potassium chloride 20 mEq TbER Take 1 tablet by mouth twice daily. albuterol HFA (PROVENTIL HFA, VENTOLIN HFA) 90 mcg/actuation inhaler Inhale 2 Puffs as instructed every 4 hours as needed. 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 MULTIVITAMIN ORAL Take 1 tablet by mouth once daily. No current facility-administered medications for this visit. ALLERGIES: ALLERGIES Allergen Reactions Crestor [Rosuvastat* Other: See Comments Myalgia. Ibuprofen Other: See Comments dizzy Prevnar 13 [Pneumoc* Rash Presumed reaction to Prevnar. Latex Rash Local contact rash. PAST MEDICAL HISTORY Diagnosis Date A-fib ([facility]) Class 1 congestive heart failure, unspecified failure chronicity, systolic (HCC) 11/21/2019 Dysphagia, unspecified(787.20) Esophageal reflux Esophagitis, unspecified Marfan's syndrome Moderate mitral regurgitation 06/18/2021 04/27/21 Echo at [facility]. Pleural effusion, right 05/05/2020 CXR 11/18/19 and 05/04/20. Unspecified essential hypertension PAST SURGICAL HISTORY Procedure Laterality Date COLONOSCOPY FLX DX W/COLLJ SPEC WHEN PFRMD 10/16/14 Colonoscopy EGD TRANSORAL BIOPSY SINGLE/MULTIPLE 01/13/09 ESOPHAGOGASTRODUODENOSCOPY TRANSORAL DIAGNOSTIC 10/16/14 EGD FNA WITH IMAGING 03/16/11 U/S FNA left mid/lower lobe thyroid nodule MAMMOGRAM BILATERAL August 2010? PAST SURGICAL HISTORY OF tubial pregnacy/tube removed PAST SURGICAL HISTORY OF eye surgery bilateral TOTAL ABDOMINAL HYSTERECT W/WO RMVL TUBE OVARY Hysterectomy, [place]O FAMILY HISTORY Problem Relation Age of Onset Diabetes Mother Cancer Mother other (marfan syndrome) Mother (more content not included)...[facility]03-30-2023 History of Present illness Narrative* Wes Bonilla MD - 09/01/2022 2:43 PM EDT Patient presents with: Follow Up: 4 week follow up HPI: Patient presents today for office visit for follow up. See previous ov: Back Pain: Some improvement from compression fractrace. Has to be careful with movement. Using Miacalcin and fitted for back brace will be a couple weeks before it is here. MRI is scheduled. Pain is improving. Not having much discomfort at this point. No numbness or weakness. No shortness of breath. No chest pain. No edema. Compression fx follow up. Scheduled to see pain management in October. Using her back brace when she isup and that helps her. Taking Tylenol and using Micalcin as ordered. Picking up gabapentin today. Discussed her mri. Pain is not bad unless she is changing positions. No numbness or weakness in the legs. No shortness of breath. No abd pain. No gi or gu issues. Reviewed her mri. No further falls. Is using her cane. See MRI: Imaging findings suggesting acute or subacute compression deformities involving the T8, T9, and T11 vertebral bodies with up to 10%, 50%, and 10% loss of vertebral body height respectively and no significant osseous retropulsion. Mild chronic compression deformity of the T12 vertebral body without significant osseous retropulsion. Minor degenerative changes without high-grade canal or foraminal narrowing. Round T2 hyperintense hepatic lesions incidentally noted, incompletely characterized, though perhaps cysts or hemangiomas. Small T2 hyperintense renal foci also noted, incompletely characterized, though likely cysts. Trace pleural effusions. Otherwise, unremarkable MRI thoracic spine without contrast. Anatomic Thoracic/Lumbar Variant: None. L4-5 is considered the level of the iliac crest and assume there are 5 lumbar-type vertebrae MEDICATIONS: Current Outpatient Medications Medication Sig gabapentin (NEURONTIN) 100 mg capsule Take 1 capsule by mouth daily at bedtime for 90 days. calcitonin,salmon, (MIACALCIN, FORTICAL) 200 unit/actuation nasal spray Use 1 Baldwin in the nose once daily. Back Brace misc 1 Each once daily. Custom made Metaxalone 400 mg tab Take 1 tablet by mouth three times daily as needed. omeprazole (PRILOSEC) 40 mg capsule Take 1 capsule by mouth once daily. metoprolol tartrate, short acting, (LOPRESSOR) 50 mg tablet Take 1 tablet by mouth twice daily. warfarin (COUMADIN) 4 mg tablet 4 mg on M, W, , 2 mg all other days. (Patient taking differently: 4 mg on M, W, 2 mg all other days-pt started this dosing on 02/18/22.) amiodarone (PACERONE) 200 mg tablet Take 0.5 tablets by mouth once daily. dilTIAZem CD (CARDIZEM CD, CARTIA XT) 240 mg 24 hr capsule Take 240 mg by mouth once daily. furosemide (LASIX) 40 mg tablet Take 1 tablet by mouth twice daily. WALKER ROLLATOR SEAT WITH 6 WHEELS - RED Daily use R26.81 Gait instability (primary encounter diagnosis) potassium chloride 20 mEq TbER Take 1 tablet by mouth twice daily. albuterol HFA (PROVENTIL HFA, VENTOLIN HFA) 90 mcg/actuation inhaler Inhale 2 Puffs as instructed every 4 hours as needed. 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 MULTIVITAMIN ORAL Take 1 tablet by mouth once daily. No current facility-administered medications for this visit. ALLERGIES: ALLERGIES Allergen Reactions Crestor [Rosuvastat* Other: See Comments Myalgia. Ibuprofen Other: See Comments dizzy Prevnar 13 [Pneumoc* Rash Presumed reaction to Prevnar. Latex Rash Local contact rash. PAST MEDICAL HISTORY Diagnosis Date A-fib ([facility]) Class 1 congestive heart failure, unspecified failure chronicity, systolic (HCC) 11/21/2019 Dysphagia, unspecified(787.20) Esophageal reflux Esophagitis, unspecified Marfan's syndrome Moderate mitral regurgitation 06/18/2021 04/27/21 Echo at [facility]. Pleural effusion, right 05/05/2020 CXR 11/18/19 and 05/04/20. Unspecified essential hypertension PAST SURGICAL HISTORY Procedure Laterality Date COLONOSCOPY FLX DX W/COLLJ SPEC WHEN PFRMD 10/16/14 Colonoscopy EGD TRANSORAL BIOPSY SINGLE/MULTIPLE 01/13/09 ESOPHAGOGASTRODUODENOSCOPY TRANSORAL DIAGNOSTIC 10/16/14 EGD FNA WITH IMAGING 03/16/11 U/S FNA left mid/lower lobe thyroid nodule MAMMOGRAM BILATERAL August 2010? PAST SURGICAL HISTORY OF tubial pregnacy/tube removed PAST SURGICAL HISTORY OF eye surgery bilateral TOTAL ABDOMINAL HYSTERECT W/WO RMVL TUBE OVARY Hysterectomy, [place] FAMILY HISTORY Problem Relation Age of Onset Diabetes Mother Cancer Mother other (marfan syndrome) Mother GI Father ulcer Diabetes Sister other (marfan syndrome) Brother x2 Stroke Maternal Grandmother Hypertension Sister Hypertension Brother COPD Brother Emphysema COPD Daughter Emphysema Social History Tobacco Use Smoking status: Never Smokeless tobacco: Never Tobacco comments: Spouse smoked cigars in home until about 2003. Vaping Use Vaping Use: Never used Substance Use Topics Alcohol use: No Drug use: No Reviewed current medications, allergies, past medical history, surgical history, family history andsocial history today. REVIEW OF SYSTEMS All other reviewed and negative other than HPI. HEALTH MAINTENANCE: Reviewed health maintenance issues today and recommended the following in detail. COVID-19 VACCINE(1) Never done SHINGRIX VACCINE(1 of 2) Never done ADVANCE DIRECTIVE DISCUSSION -on file. VITALS: BP 122/62 Pulse 62 Wt 59.9 kg (132 lb) SpO2 96% BMI 24.94 kg/m Last 4 Encounter Wt Readings: Date: Wt: 07/28/2022 62.1 kg (137 lb) 07/14/2022 61.7 kg (136 lb) 06/29/2022 62.2 kg (137 lb 3.2 oz) 05/17/2022 62 kg (136 lb 9.6 oz) PHYSICAL EXAMINATION: General appearance: Well appearing, alert, in no acute distress, well-hydrated, well nourished. Skin: Skin color, texture, turgor normal, no suspicious rashes or lesions Head: Normocephalic, no masses, lesions, tenderness or abnormalities Lungs: Lungs clear to auscultation. No wheezing, rhonchi, rales Heart: RRR without murmur, gallop, or rubs. No ectopy Abdomen: Normal abdominal exam, Abdomen soft, non-tender. Bowel sounds normal. No masses, organomegaly Extremities: No deformities, edema, skin discoloration, clubbing or cyanosis. Good capillary refill. Neuro: Gait normal. Reflexes normal and symmetric. Sensation grossly intact. ASSESSMENT/PLAN: 1. Compression deformity of vertebra - ICD9: 738.5, ICD10: M43.9 (primary diagnosis) - offered physical therapy. She declines. Continue brace, miacalcin, on calc with d. May consider other tx for osteoporosis once stable. See pain management. Add gabapentin. Up date with her pain in two weeks. Red flags for re-assessment reviewed with patient in detail. 2. Renal mass - ICD9: 593.9, ICD10: N28.89 - US ABDOMEN COMPLETE 3. Liver mass - ICD9: 573.8, ICD10: R16.0 - US ABDOMEN COMPLETE Wes Bonilla MD documented in [facility]Reg[facility]23 NoteHNO ID: [id number] Author: Cadence Bustillo LPN Service: ? Author Type: ? Type: Progress Notes Filed: 08/29/2022 1:44 PM Note Text: Patient states that is using the miacalcin and hasn't noticed this helping much with the pain. The Tylenol helps for awhile after she takes it and is going to increase like advised. She is wearing the brace that was ordered and that also seems to help. Patient states that she sleeps well but if she has to get up in the night the position changes is what really hurts her. Advised patient that not sure any of the medication is really going to help with the pain. Patient still wanting to try the gabapentin. Please send to [facility] for her.[facility]03-27-2023 NoteHNO ID: [id number] Author: Wes Bonilla MD Service: ? Author Type: Physician Type: Progress Notes Filed: 08/29/2022 1:22 PM Note Text: Her miacalcin should also help with pain, let her know we can add something like gabapentin if she Is willing. Let me knowM[facility]03-[facility]23 Miscellaneous Notes* Addendum Note - Wes Bonilla MD - 08/29/2022 2:11 PM EDTAddended by: WES BONILLA on: 08/29/2022 02:11 PM Modules accepted: Orders documented in this encounterRegency [facility]03-27-2023 NotePatient Outreach ([facility]) NIMISHA CEJA ([id number]) 1945 F Date Time Provider Department 08/29/22 MICHELLE ROCHA During your visit today, we recorded the following information about you: Michelle Rocha RN 08/29/2022 12:20 PM Signed [facility] TELEPHONIC OUTREACH Provider Action/FYI: Pt states she fractured her back in a number of places. She states she does not know how she did it. However, she thinks it may be related to her moving furniture. Pt states she only has increased sob when trying to get up from chair or bed and is related to the times her pain is increased. Pt states when she is getting up her pain is rated a 10/10 and describes it as tightness . Pt states she has been taking tylenol 1000 mg BID. Pt states she has nothing else prescribed for pain, but does have a visit with pain specialist October 16. Encouraged patient to take her OTC tylenol 1000 mg TID Q 8 hours (as bottle allows for) at this time until her visit with PCP scheduled for 09/02. Pt verbalizes understanding and agreement. Aside from the sob when getting up, patient denies any other new or worsening CDM symptoms. Pt denies further needs, questions, concerns at this time. END OUTREACH Contact made with patient: Yes Patient identified by name and . Discussed care with patient It?s nice talking to you again. As a reminder, this is our bi-weekly check-in where I will be asking you questions about your health. This will only take a few minutes of your time. Is this a good time? Yes Symptoms What Chronic Disease(s) does the patient have: COPD Do you check your blood pressures at home? No Do you have new or worse shortness of breath with activity? Yes Do you have new or worsening cough? No Do you have new or worsening wheezing? No Do you need to use your rescue (Albuterol) inhaler or nebulizer more often than normal? No Are you having any other symptoms that your PCP needs to know about? Yes Symptoms: pain in back. Symptom Escalation FAVIOLA Education Ordered -: No The patient required an escalation for symptom(s)? No Medications Do you have any questions about taking your medication or which medications you should be on? No Do you need any medication refills at this time, including any of the medications you might take only when needed? No Social We would like to make sure you have what you need so that your basic needs are met- including your personal safety, food, housing, transportation and medications? Would you like to speak with a social work team supervisor to help give you support for any of these needs? No It can be normal to feel anxious or down during a time like this. Would you like to talk to a mental health professional about how you have been feeling? No Closing Thank you for taking the time to talk with me today. We want to work with you to ensure that we are keeping your medical condition(s) well-controlled and to keep you healthy and out of the doctor's office or hospital. It?s also not too late for me to sign you up for automated weekly questionnaires through [employer]. This is an easy way for us to stay connected each week. Are you interested? No, I understand. We can always sign you up in the future if you change your mind. Just as a reminder, will continue to call you every other week to check in on your health. Our calls should take 10-15 minutes or less. Remember, if you have concerns in between our calls, please call your PCP's office right away. Thank you. Enter next patient outreach date for two weeks on the same day of the week as today in the Track Pt Outreach and End outreach. Wes Bonilla MD 08/29/2022 1:22 PM Signed Her miacalcin should also help with pain, let her know we can add something like gabapentin if she Is willing. Let me know Cadence Bustillo LPN 08/29/2022 1:44 PM Signed Patient states that is using the miacalcin and hasn't noticed this helping much with the pain. The Tylenol helps for awhile after she takes it and is going to increase like advised. She is wearing the brace that was ordered and that also seems to help. Patient states that she sleeps well but if she has to get up in the night the position changes is what really hurts her. Advised patient that not sure any of the medication is really going to help with the pain. Patient still wanting to try the gabapentin. Please send to [facility] for her. Wes Bonilla MD 08/29/2022 2:11 PM Signed Addended by: WES BONILLA on: 08/29/2022 02:11 PM Modules accepted: Orders Allergies As of Date: 08/29/2022 Noted Allergy Reaction CRESTOR (ROSUVASTATIN CALCIUM) 01/19/2011 14 - Other: See Comments Comments: Myalgia. IBUPROFEN 12/04/2008 14 - Other: See Comments Comments: dizzy PREVNAR 13 (PNEUMOC 13-CHU CONJ-D*07/27/2015 2 - Rash Comments: Presumed reaction to Prevnar. LATEX 12/08/2008 2 - (more content not included)...[facility] 08-29-2022 NoteHNO ID: [id number] Author: Michelle Rocha RN Service: ? Author Type: Registered Nurse Type: Progress Notes Filed: 08/29/2022 12:20 PM Note Text: [facility] TELEPHONIC OUTREACH Provider Action/FYI: Pt states she fractured her back in a number of places. She states she does not know how she did it. However, she thinks it may be related to her moving furniture. Pt states she only has increased sob when trying to get up from chair or bed and is related to the times her pain is increased. Pt states when she is getting up her pain is rated a 10/10 and describes it as tightness . Pt states she has been taking tylenol 1000 mg BID. Pt states she has nothing else prescribed for pain, but does have a visit with pain specialist October 16. Encouraged patient to take her OTC tylenol 1000 mg TID Q 8 hours (as bottle allows for) at this time until her visit with PCP scheduled for 09/02. Pt verbalizes understanding and agreement. Aside from the sob when getting up, patient denies any other new or worsening CDM symptoms. Pt denies further needs, questions, concerns at this time. END OUTREACH Contact made with patient: Yes Patient identified by name and . Discussed care with patient It?s nice talking to you again. As a reminder, this is our bi-weekly check-in where I will be asking you questions about your health. This will only take a few minutes of your time. Is this a good time? Yes Symptoms What Chronic Disease(s) does the patient have: COPD Do you check your blood pressures at home? No Do you have new or worse shortness of breath with activity? Yes Do you have new or worsening cough? No Do you have new or worsening wheezing? No Do you need to use your rescue (Albuterol) inhaler or nebulizer more often than normal? No Are you having any other symptoms that your PCP needs to know about? Yes Symptoms: pain in back. Symptom Escalation FAVIOLA Education Ordered -: No The patient required an escalation for symptom(s)? No Medications Do you have any questions about taking your medication or which medications you should be on? No Do you need any medication refills at this time, including any of the medications you might take only when needed? No Social We would like to make sure you have what you need so that your basic needs are met- including your personal safety, food, housing, transportation and medications? Would you like to speak with a social work team supervisor to help give you support for any of these needs? No It can be normal to feel anxious or down during a time like this. Would you like to talk to a mental health professional about how you have been feeling? No Closing Thank you for taking the time to talk with me today. We want to work with you to ensure that we are keeping your medical condition(s) well-controlled and to keep you healthy and out of the doctor's office or hospital. It?s also not too late for me to sign you up for automated weekly questionnaires through [employer]. This is an easy way for us to stay connected each week. Are you interested? No, I understand. We can always sign you up in the future if you change your mind. Just as a reminder, will continue to call you every other week to check in on your health. Our calls should take 10-15 minutes or less. Remember, if you have concerns in between our calls, please call your PCP's office right away. Thank you. Enter next patient outreach date for two weeks on the same day of the week as today in the Track Pt Outreach and End outreach.[facility] 08-29-2022 History of Present illness Narrative* Cadence Bustillo LPN - 08/29/2022 1:39 PM EDT Patient states that is using the miacalcin and hasn't noticed this helping much with the pain. The Tylenol helps for awhile after she takes it and is going to increase like advised. She is wearing the brace that was ordered and that also seems to help. Patient states that she sleeps well but if shehas to get up in the night the position changes is what really hurts her. Advised patient that not sure any of the medication is really going to help with the pain. Patient still wanting to try the gabapentin. Please send to [facility] for her. * Wes Bonilla MD - 08/29/2022 1:21 PM EDT Her miacalcin should also help with pain, let her know we can add something like gabapentin if she Is willing. Let me know * Michelle Rocha RN - 08/29/2022 11:42 AM EDT INSIGHT CDM TELEPHONIC OUTREACH Provider Action/FYI: Pt states she fractured her back in a number of places. She states she does not know how she did it. However, she thinks it may be related to her moving furniture. Pt states she only has increased sob when trying to get up from chair or bed and is related to the times her pain is increased. Pt states when she is getting up her pain is rated a 10/10 and describes it as tightness . Pt states she has been taking tylenol 1000 mg BID. Pt states she has nothing else prescribed for pain, but does have a visit with pain specialist October 16. Encouraged patient to take her OTC tylenol 1000 mg TID Q 8 hours (as bottle allows for) at this time until her visit with PCP scheduled for 09/02.Pt verbalizes understanding and agreement. Aside from the sob when getting up, patient denies any other new or worsening CDM symptoms. Pt denies further needs, questions, concerns at this time. END OUTREACH Contact made with patient: Yes Patient identified by name and . Discussed care with patient It s nice talking to you again. As a reminder, this is our bi-weekly check-in where I will be asking you questions about your health. This will only take a few minutes of your time. Is this a good time? Yes Symptoms What Chronic Disease(s) does the patient have: COPD Do you check your blood pressures at home? No Do you have new or worse shortness of breath with activity? Yes Do you have new or worsening cough? No Do you have new or worsening wheezing? No Do you need to use your rescue (Albuterol) inhaler or nebulizer more often than normal? No Are you having any other symptoms that your PCP needs to know about? Yes Symptoms: pain in back. Symptom Escalation FAVIOAL Education Ordered -: No The patient required an escalation for symptom(s)? No Medications Do you have any questions about taking your medication or which medications you should be on? No Do you need any medication refills at this time, including any of the medications you might take only when needed? No Social We would like to make sure you have what you need so that your basic needs are met- including your personal safety, food, housing, transportation and medications? Would you like to speak with a social work team supervisor to help give you support for any of these needs? No It can be normal to feel anxious or down during a time like this. Would you like to talk to a mental health professional about how you have been feeling? No Closing Thank you for taking the time to talk with me today. We want to work with you to ensure that we arekeeping your medical condition(s) well-controlled and to keep you healthy and out of the doctor's office or hospital. It s also not too late for me to sign you up for automated weekly questionnaires through [employer]. This is an easy way for us to stay connected each week. Are you interested? No, I understand. We can always sign you up in the future if you change your mind. Just as a reminder, will continue to call you every other week to check in on your health. Our calls should take 10-15 minutes or less. Remember, if you have concerns in between our calls, please call your PCP's office right away. Thank you. Enter next patient outreach date for two weeks on the same day of the week as today in the Track PtOutreach and End outreach. [facility]23 NoteHNO ID: [id number] Author: Wes Bonilla MD Service: ? Author Type: Physician Type: Progress Notes Filed: 08/23/2022 2:25 PM Note Text: [facility] NoteHNO ID: [id number] Author: Yanely Posadas RN Service: ? Author Type: ? Type: Progress Notes Filed: 08/23/2022 2:25 PM Note Text: patient had inr completed at [facility] patients inr is 2.9 (patients inr range is 2.0-3.0) patient is currently taking 4mg Mon,Thurs and 2mg all other days patients last dose change was on 05/19/22 due to a high level of 3.2 (dose at that time was 4mg Mon, Tu,Wed and 2mg all other days) patient has had no changes in medication and no missed doses and no change in diet Advised patient to continue on the same dose(s) and that they would only be contacted regarding dosage and follow up instructions after review with provider, if a change is needed. Written instructions given and patient verbalized understanding. Presently scheduled in 4 weeks (09/20/22) for follow up INR.[facility]03-21-2023 History of Present illness Narrative* Wes Bonilla MD - 08/23/2022 2:24 PM EDT agree * Yanely Posadas RN - 08/23/2022 1:54 PM EDT patient had inr completed at [facility] patients inr is 2.9 (patients inr range is 2.0-3.0) patient is currently taking 4mg Mon,Thurs and 2mg all other days patients last dose change was on 05/19/22 due to a high level of 3.2 (dose at that time was 4mg Mon, Tues,Wed and 2mg all other days) patient has had no changes in medication and no missed doses and no change in diet Advised patient to continue on the same dose(s) and that they would only be contacted regarding dosage and follow up instructions after review with provider, if a change is needed. Written instructions given and patient verbalized understanding. Presently scheduled in 4 weeks (09/20/22) for follow up INR. documented in this encounterReg[facility]-2023 Miscellaneous Notes* Telephone Encounter - Ely Strauss - 08/19/2022 2:27 PM EDT Spoke to pt and gave number to call to scheduled pain management. * Telephone Encounter - Debbie Long Ma - 08/19/2022 1:14 PM EDT Patient notified of provider message. Please help pt set up consult. Debbie Long Ma * Telephone Encounter - Wes Bonilla MD - 08/19/2022 1:04 PM EDT Yes she was already supposed to be wearing it t help with pain. Get that and if not helping let me knwo * Telephone Encounter - Debbie Long Ma - 08/19/2022 12:47 PM EDT Patient made aware of results. She takes 1 650 mg tablet twice daily. She has not picked up the back brace from [employer] yet, asking if this is ok to wear. * Telephone Encounter - Wes Bonilla MD - 08/19/2022 12:28 PM EDT Shows several compression fractures. Refer to pain management. What is she using right now for pain? Is she using tylenol regularly. If we add something it would be a pain pill that should only be used short term and are habit forming. * Telephone Encounter - Deana Coleman RN - 08/19/2022 12:23 PM EDT Patient calls and is asking about MRI results for back? Patient also states that she continues to be in a lot of pain. Patient asking if provider can prescribe something for the pain? Please review and advise, Deana Coleman RN documented in this encounterReg[facility]03-16-2023 NoteHNO ID: [id number] Author: RT Myrtle(R) Service: ? Author Type: Technologist Type: Progress Notes Filed: 08/18/2022 12:02 PM Note Text: Radiology Service Progress Note PATIENT NAME: Nimisha Ceja DATE OF SERVICE: August 18, 2022 TIME: 12:02 PM PATIENT IDENTITY VERIFICATION COMPLETED USING TWO (2) IDENTIFIERS: Name and Date of confirmed by patient verbally. FALL SCREENING: Has the patient had 2 falls in the last year or 1 fall with injury or currently using an Ambulatory Assistive Device (Walker, Cane, Wheelchair, Crutches, etc.)? Yes, Patient High Risk for Falls What interventions were put in place to prevent falls during this visit? Instructed Patient to Call for Help if Needed, Offered Assistance with Transfers/Clothing, Instructed Patient to Remain Seated (Not on Exam Table) Until Exam, and Increased Observations by Caregivers PATIENT GENDER DATA: Female. status: : No status: NO. PATIENT RELEVANT IMPLANT DATA REVIEWED: Yes RADIOLOGY DEPARTMENT: MR; Exam(s) Completed: Spine: Thoracic spine PERIPHERAL IV DATA: Not applicable SIGNED BY: RT Myrtle(R) August 18, 2022 12:02 [facility]03-16-2023 History of Present illness Narrative* Debbie Solano RT(Zenaida) - 08/18/2022 11:20 AM EDT Radiology Service Progress Note PATIENT NAME: Nimisha Ceja DATE OF SERVICE: August 18, 2022 TIME: 12:02 PM PATIENT IDENTITY VERIFICATION COMPLETED USING TWO (2) IDENTIFIERS: Name and Date of confirmedby patient verbally. FALL SCREENING: Has the patient had 2 falls in the last year or 1 fall with injury or currently using an Ambulatory Assistive Device (Walker, Cane, Wheelchair, Crutches, etc.)? Yes, Patient High Riskfor Falls What interventions were put in place to prevent falls during this visit? Instructed Patient to Callfor Help if Needed, Offered Assistance with Transfers/Clothing, Instructed Patient to Remain Seated(Not on Exam Table) Until Exam, and Increased Observations by Caregivers PATIENT GENDER DATA: Female. status: : No status: NO. PATIENT RELEVANT IMPLANT DATA REVIEWED: Yes RADIOLOGY DEPARTMENT: MR; Exam(s) Completed: Spine: Thoracic spine PERIPHERAL IV DATA: Not applicable SIGNED BY: RT Myrtle(Zenaida) August 18, 2022 12:02 PM documented in this encounterRegency [facility]02-23-2023 NoteHNO ID: [id number] Author: Wes Bonilla MD Service: ? Author Type: Physician Type: Progress Notes Filed: 07/28/2022 2:09 PM Note Text: Patient presents with: Back Pain: Some improvement. Has to be careful with movement. Using Miacalcin and fitted for back brace will be a couple weeks before it is here. MRI is scheduled. HPI: Patient presents today for office visit for follow up. ANTICOAGULATION: Patient is on coumadin for a fib. Length of treatment: lifetime. Bleeding or bruising No. Monitored by our office: Yes. Up to date on inr checks Yes. Back Pain: Some improvement from compression fractrace. Has to be careful with movement. Using Miacalcin and fitted for back brace will be a couple weeks before it is here. MRI is scheduled. Pain is improving. Not having much discomfort at this point. No numbness or weakness. No shortness of breath. No chest pain. No edema. See previous ov: Seen in . Was moving a refrigerator and began with pain her back. No falls or direct trauma. Worse with movement. Worse trying to get out of bed. Worse with cough. No numbness or weakness in the arms or legs. No shortness of breath. No bruising. No rashes. No cough. No chest pain with exertion. No edema. At times it seems to wrap around her stomach. Using tylenol. IMPRESSION: No radiographic evidence of acute displaced left rib fracture. Small right pleural effusion and/or pleural thickening, slightly decreased when compared with prior study. XRAY:IMPRESSION: T9 vertebral body compression deformity/age indeterminate fracture. MEDICATIONS: Current Outpatient Medications Medication Sig calcitonin,salmon, (MIACALCIN, FORTICAL) 200 unit/actuation nasal spray Use 1 Baldwin in the nose once daily. omeprazole (PRILOSEC) 40 mg capsule Take 1 capsule by mouth once daily. metoprolol tartrate, short acting, (LOPRESSOR) 50 mg tablet Take 1 tablet by mouth twice daily. warfarin (COUMADIN) 4 mg tablet 4 mg on M, W, F, 2 mg all other days. (Patient taking differently: 4 mg on M, W, 2 mg all other days-pt started this dosing on 02/18/22.) amiodarone (PACERONE) 200 mg tablet Take 0.5 tablets by mouth once daily. dilTIAZem CD (CARDIZEM CD, CARTIA XT) 240 mg 24 hr capsule Take 240 mg by mouth once daily. furosemide (LASIX) 40 mg tablet Take 1 tablet by mouth twice daily. potassium chloride 20 mEq TbER Take 1 tablet by mouth twice daily. albuterol HFA (PROVENTIL HFA, VENTOLIN HFA) 90 mcg/actuation inhaler Inhale 2 Puffs as instructed every 4 hours as needed. 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 MULTIVITAMIN ORAL Take 1 tablet by mouth once daily. Back Brace misc 1 Each once daily. Custom made Metaxalone 400 mg tab Take 1 tablet by mouth three times daily as needed. WALKER ROLLATOR SEAT WITH 6 WHEELS - RED Daily use R26.81 Gait instability (primary encounter diagnosis) No current facility-administered medications for this visit. ALLERGIES: ALLERGIES Allergen Reactions Crestor [Rosuvastat* Other: See Comments Myalgia. Ibuprofen Other: See Comments dizzy Prevnar 13 [Pneumoc* Rash Presumed reaction to Prevnar. Latex Rash Local contact rash. PAST MEDICAL HISTORY Diagnosis Date A-fib (HCC) Class 1 congestive heart failure, unspecified failure chronicity, systolic (HCC) 11/21/2019 Dysphagia, unspecified(787.20) Esophageal reflux Esophagitis, unspecified Marfan's syndrome Moderate mitral regurgitation 06/18/2021 04/27/21 Echo at [facility]. Pleural effusion, right 05/05/2020 CXR 11/18/19 and 05/04/20. Unspecified essential hypertension PAST SURGICAL HISTORY Procedure Laterality Date COLONOSCOPY FLX DX W/COLLJ SPEC WHEN PFRMD 10/16/14 Colonoscopy EGD TRANSORAL BIOPSY SINGLE/MULTIPLE 01/13/09 ESOPHAGOGASTRODUODENOSCOPY TRANSORAL DIAGNOSTIC 10/16/14 EGD FNA WITH IMAGING 03/16/11 U/S FNA left mid/lower lobe thyroid nodule MAMMOGRAM BILATERAL August 2010? PAST SURGICAL HISTORY OF tubial pregnacy/tube removed PAST SURGICAL HISTORY OF eye surgery bilateral TOTAL ABDOMINAL HYSTERECT W/WO RMVL TUBE OVARY Hysterectomy, [place]HOAC[place]O FAMILY HISTORY Problem Relation Age of Onset Diabetes Mother Cancer Mother other (marfan syndrome) Mother GI Father ulcer Diabetes Sister other (marfan syndrome) Brother x2 Stroke Maternal Grandmother Hypertension Sister Hypertension Brother COPD Brother Emphysema COPD Daughter Emphysema Social History Tobacco Use Smoking status: Never Smokeless tobacco: Never Tobacco comments: Spouse smoked cigars in home until about 2003. Vaping Use Vaping Use: Never used Substance Use Topics Alcohol us (more content not included)...[facility]02-[facility] History of Present illness Narrative* Wes Bonilla MD - 07/28/2022 1:46 PM EST Patient presents with: Back Pain: Some improvement. Has to be careful with movement. Using Miacalcin and fitted for back brace will be a couple weeks before it is here. MRI is scheduled. HPI: Patient presents today for office visit for follow up. ANTICOAGULATION: Patient is on coumadin for a fib. Length of treatment: lifetime. Bleeding or bruising No. Monitored by our office: Yes. Up to date on inr checks Yes. Back Pain: Some improvement from compression fractrace. Has to be careful with movement. Using Miacalcin and fitted for back brace will be a couple weeks before it is here. MRI is scheduled. Pain is improving. Not having much discomfort at this point. No numbness or weakness. No shortness of breath. No chest pain. No edema. See previous ov: Seen in . Was moving a refrigerator and began with pain her back. No falls or direct trauma. Worse with movement. Worse trying to get out of bed. Worse with cough. No numbness or weakness in the arms or legs. No shortness of breath. No bruising. No rashes. No cough. No chest pain with exertion. No edema. At times it seems to wrap around her stomach. Using tylenol. IMPRESSION: No radiographic evidence of acute displaced left rib fracture. Small right pleural effusion and/or pleural thickening, slightly decreased when compared with prior study. XRAY:IMPRESSION: T9 vertebral body compression deformity/age indeterminate fracture. MEDICATIONS: Current Outpatient Medications Medication Sig calcitonin,salmon, (MIACALCIN, FORTICAL) 200 unit/actuation nasal spray Use 1 Baldwin in the nose once daily. omeprazole (PRILOSEC) 40 mg capsule Take 1 capsule by mouth once daily. metoprolol tartrate, short acting, (LOPRESSOR) 50 mg tablet Take 1 tablet by mouth twice daily. warfarin (COUMADIN) 4 mg tablet 4 mg on M, W, , 2 mg all other days. (Patient taking differently: 4 mg on M, W, 2 mg all other days-pt started this dosing on 02/18/22.) amiodarone (PACERONE) 200 mg tablet Take 0.5 tablets by mouth once daily. dilTIAZem CD (CARDIZEM CD, CARTIA XT) 240 mg 24 hr capsule Take 240 mg by mouth once daily. furosemide (LASIX) 40 mg tablet Take 1 tablet by mouth twice daily. potassium chloride 20 mEq TbER Take 1 tablet by mouth twice daily. albuterol HFA (PROVENTIL HFA, VENTOLIN HFA) 90 mcg/actuation inhaler Inhale 2 Puffs as instructed every 4 hours as needed. 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 MULTIVITAMIN ORAL Take 1 tablet by mouth once daily. Back Brace misc 1 Each once daily. Custom made Metaxalone 400 mg tab Take 1 tablet by mouth three times daily as needed. WALKER ROLLATOR SEAT WITH 6 WHEELS - RED Daily use R26.81 Gait instability (primary encounter diagnosis) No current facility-administered medications for this visit. ALLERGIES: ALLERGIES Allergen Reactions Crestor [Rosuvastat* Other: See Comments Myalgia. Ibuprofen Other: See Comments dizzy Prevnar 13 [Pneumoc* Rash Presumed reaction to Prevnar. Latex Rash Local contact rash. PAST MEDICAL HISTORY Diagnosis Date A-fib ([facility]) Class 1 congestive heart failure, unspecified failure chronicity, systolic ([facility]) 11/21/2019 Dysphagia, unspecified(787.20) Esophageal reflux Esophagitis, unspecified Marfan's syndrome Moderate mitral regurgitation 06/18/2021 04/27/21 Echo at [facility]. Pleural effusion, right 05/05/2020 CXR 11/18/19 and 05/04/20. Unspecified essential hypertension PAST SURGICAL HISTORY Procedure Laterality Date COLONOSCOPY FLX DX W/COLLJ SPEC WHEN PFRMD 10/16/14 Colonoscopy EGD TRANSORAL BIOPSY SINGLE/MULTIPLE 01/13/09 ESOPHAGOGASTRODUODENOSCOPY TRANSORAL DIAGNOSTIC 10/16/14 EGD FNA WITH IMAGING 03/16/11 U/S FNA left mid/lower lobe thyroid nodule MAMMOGRAM BILATERAL August 2010? PAST SURGICAL HISTORY OF tubial pregnacy/tube removed PAST SURGICAL HISTORY OF eye surgery bilateral TOTAL ABDOMINAL HYSTERECT W/WO RMVL TUBE OVARY Hysterectomy, [place] FAMILY HISTORY Problem Relation Age of Onset Diabetes Mother Cancer Mother other (marfan syndrome) Mother GI Father ulcer Diabetes Sister other (marfan syndrome) Brother x2 Stroke Maternal Grandmother Hypertension Sister Hypertension Brother COPD Brother Emphysema COPD Daughter Emphysema Social History Tobacco Use Smoking status: Never Smokeless tobacco: Never Tobacco comments: Spouse smoked cigars in home until about 2003. Vaping Use Vaping Use: Never used Substance Use Topics Alcohol use: No Drug use: No Reviewed current medications, allergies, past medical history, surgical history, family history andsocial history today. REVIEW OF SYSTEMS No more falls. Feels she is ambulating well, All other reviewed and negative other than HPI. HEALTH MAINTENANCE: Reviewed health maintenance issues today and recommended the following in detail. DEPRESSION ASSESSMENT due on 06/05/2022 VITALS: BP 104/62 Pulse (!) 56 Wt 62.1 kg (137 lb) SpO2 95% BMI 25.89 kg/m Last 4 Encounter Wt Readings: Date: Wt: 07/14/2022 61.7 kg (136 lb) 06/29/2022 62.2 kg (137 lb 3.2 oz) 05/17/2022 62 kg (136 lb 9.6 oz) 04/19/2022 61.1 kg (134 lb 9.6 oz) PHYSICAL EXAMINATION: General appearance: Well appearing, alert, in no acute distress, well-hydrated, well nourished. Skin: Skin color, texture, turgor normal, no suspicious rashes or lesions Head: Normocephalic, no masses, lesions, tenderness or abnormalities BACK: Normal curvature of spine. No spine tenderness. Straight leg test negative. Deep tendon reflexes 2+/4 at patellas. Normal lower extremity strength. Lungs: Lungs clear to auscultation. No wheezing, rhonchi, rales Heart: RRR without murmur, gallop, or rubs. No ectopy Abdomen: Normal abdominal exam, Abdomen soft, non-tender. Bowel sounds normal. No masses, organomegaly Extremities: Edema: negative. ASSESSMENT/PLAN: 1. Compression deformity of vertebra - ICD9: 738.5, ICD10: M43.9 (primary diagnosis) - await mri. Stay on meds. Hold on spine or pain management referral for now. Red flags for re-assessment reviewed with patient in detail. 2. Centrilobular emphysema (HCC) - ICD9: 492.8, ICD10: J43.2 - stable. 3. Pulmonary hypertension (HCC) - ICD9: 416.8, ICD10: I27.20 - stable. 4. Paroxysmal atrial fibrillation (HCC) - ICD9: 427.31, ICD10: I48.0 - inr is up to date. 5. Rheumatoid arthritis, unspecified (HCC) - ICD9: 714.0, ICD10: M06.9 - doing well. 6. Chronic respiratory failure with hypoxia (HCC) - ICD9: 518.83, 799.02, ICD10: J96.11 - stable. Wes Bonilla MD documented in this encounterReg[facility]23 NoteHNO ID: [id number] Author: Monroe Santoyo MD Service: ? Author Type: Physician Type: Progress Notes Filed: 07/21/2022 3:25 PM Note Text: No changes in coumadin dosing needed. Agree with next INR check.[facility]02-16-2023 NoteHNO ID: [id number] Author: Yanely Posadas RN Service: ? Author Type: ? Type: Progress Notes Filed: 07/21/2022 3:25 PM Note Text: patient had inr completed at [facility] patients inr is 2.4 (patients inr range is 2.0-3.0) patient is currently taking 4mg Mon,Thurs and 2mg all other days patients last dose change was on 05/19/22 due to a high level of 3.2 (dose at that time was 4mg Mon,Tues,Wed and 2mg all other days) patient has had no changes in medication and no missed doses and no change in diet Advised patient to continue on the same dose(s) and that they would only be contacted regarding dosage and follow up instructions after review with provider, if a change is needed. Written instructions given and patient verbalized understanding. Presently scheduled in 4 weeks (08/18/22) for follow up INR.[facility]02[facility] History of Present illness Narrative* Monroe Santoyo MD - 07/21/2022 3:25 PM EST No changes in coumadin dosing needed. Agree with next INR check. * Yanely Posadas RN - 07/21/2022 2:37 PM EST patient had inr completed at [facility] patients inr is 2.4 (patients inr range is 2.0-3.0) patient is currently taking 4mg Mon,Thurs and 2mg all other days patients last dose change was on 05/19/22 due to a high level of 3.2 (dose at that time was 4mg Mon,Tues,Wed and 2mg all other days) patient has had no changes in medication and no missed doses and no change in diet Advised patient to continue on the same dose(s) and that they would only be contacted regarding dosage and follow up instructions after review with provider, if a change is needed. Written instructions given and patient verbalized understanding. Presently scheduled in 4 weeks (08/18/22) for follow up INR. [facility] NoteHNO ID: [id number] Author: RT Shine(R) Service: ? Author Type: Radiological Defense Officer Type: Progress Notes Filed: 07/14/2022 2:41 PM Note Text: Radiology Service Progress Note PATIENT NAME: Nimisha Ceaj DATE OF SERVICE: July 14, 2022 TIME: 2:25 PM PATIENT IDENTITY VERIFICATION COMPLETED USING TWO (2) IDENTIFIERS: Name and Date of confirmed by patient verbally. FALL SCREENING: Has the patient had 2 falls in the last year or 1 fall with injury or currently using an Ambulatory Assistive Device (Walker, Cane, Wheelchair, Crutches, etc.)? No PATIENT GENDER DATA: Female. status: : No status: NO. PATIENT RELEVANT IMPLANT DATA REVIEWED: Yes RADIOLOGY DEPARTMENT: General X-ray: Exam(s) Completed: Spine X-Ray(s): Thoracic PERIPHERAL IV DATA: Not applicable SIGNED BY: RT Shine(R) July 14, 2022 2:25 [facility]02-09-2023 NoteHNO ID: [id number] Author: Wes Bonilla MD Service: ? Author Type: Physician Type: Progress Notes Filed: 07/14/2022 2:05 PM Note Text: Patient presents with: Back Pain: Upper back down to hips started about 4 weeks ago HPI: Patient presents today for office visit for acute visit. Seen in . Was moving a refrigerator and began with pain her back. No falls or direct trauma. Worse with movement. Worse trying to get out of bed. Worse with cough. No numbness or weakness in the arms or legs. No shortness of breath. No bruising. No rashes. No cough. No chest pain with exertion. No edema. At times it seems to wrap around her stomach. Using tylenol. IMPRESSION: No radiographic evidence of acute displaced left rib fracture. Small right pleural effusion and/or pleural thickening, slightly decreased when compared with prior study. MEDICATIONS: Current Outpatient Medications Medication Sig omeprazole (PRILOSEC) 40 mg capsule Take 1 capsule by mouth once daily. metoprolol tartrate, short acting, (LOPRESSOR) 50 mg tablet Take 1 tablet by mouth twice daily. warfarin (COUMADIN) 4 mg tablet 4 mg on M, W, F, 2 mg all other days. (Patient taking differently: 4 mg on M, W, 2 mg all other days-pt started this dosing on 02/18/22.) amiodarone (PACERONE) 200 mg tablet Take 0.5 tablets by mouth once daily. dilTIAZem CD (CARDIZEM CD, CARTIA XT) 240 mg 24 hr capsule Take 240 mg by mouth once daily. furosemide (LASIX) 40 mg tablet Take 1 tablet by mouth twice daily. WALKER ROLLATOR SEAT WITH 6 WHEELS - RED Daily use R26.81 Gait instability (primary encounter diagnosis) potassium chloride 20 mEq TbER Take 1 tablet by mouth twice daily. albuterol HFA (PROVENTIL HFA, VENTOLIN HFA) 90 mcg/actuation inhaler Inhale 2 Puffs as instructed every 4 hours as needed. 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 MULTIVITAMIN ORAL Take 1 tablet by mouth once daily. No current facility-administered medications for this visit. ALLERGIES: ALLERGIES Allergen Reactions Crestor [Rosuvastat* Other: See Comments Myalgia. Ibuprofen Other: See Comments dizzy Prevnar 13 [Pneumoc* Rash Presumed reaction to Prevnar. Latex Rash Local contact rash. PAST MEDICAL HISTORY Diagnosis Date A-fib ([facility]) Class 1 congestive heart failure, unspecified failure chronicity, systolic ([facility]) 11/21/2019 Dysphagia, unspecified(787.20) Esophageal reflux Esophagitis, unspecified Marfan's syndrome Moderate mitral regurgitation 06/18/2021 04/27/21 Echo at [facility]. Pleural effusion, right 05/05/2020 CXR 11/18/19 and 05/04/20. Unspecified essential hypertension PAST SURGICAL HISTORY Procedure Laterality Date COLONOSCOPY FLX DX W/COLLJ SPEC WHEN PFRMD 10/16/14 Colonoscopy EGD TRANSORAL BIOPSY SINGLE/MULTIPLE 01/13/09 ESOPHAGOGASTRODUODENOSCOPY TRANSORAL DIAGNOSTIC 10/16/14 EGD FNA WITH IMAGING 03/16/11 U/S FNA left mid/lower lobe thyroid nodule MAMMOGRAM BILATERAL August 2010? PAST SURGICAL HISTORY OF tubial pregnacy/tube removed PAST SURGICAL HISTORY OF eye surgery bilateral TOTAL ABDOMINAL HYSTERECT W/WO RMVL TUBE OVARY Hysterectomy, MICHOACANO FAMILY HISTORY Problem Relation Age of Onset Diabetes Mother Cancer Mother other (marfan syndrome) Mother GI Father ulcer Diabetes Sister other (marfan syndrome) Brother x2 Stroke Maternal Grandmother Hypertension Sister Hypertension Brother COPD Brother Emphysema COPD Daughter Emphysema Social History Tobacco Use Smoking status: Never Smokeless tobacco: Never Tobacco comments: Spouse smoked cigars in home until about 2003. Vaping Use Vaping Use: Never used Substance Use Topics Alcohol use: No Drug use: No Reviewed current medications, allergies, past medical history, surgical history, family history and social history today. REVIEW OF SYSTEMS All other reviewed and negative other than HPI. VITALS: BP 126/56 Pulse 60 Resp 20 Wt 61.7 kg (136 lb) SpO2 96% BMI 25.70 kg/m? Last 4 Encounter Wt Readings: Date: Wt: 07/14/2022 61.7 kg (136 lb) 06/29/2022 62.2 kg (137 lb 3.2 oz) 05/17/2022 62 kg (136 lb 9.6 oz) 04/19/2022 61.1 kg (134 lb 9.6 oz) PHYSICAL EXAMINATION: General appearance: Well appearing, alert, well-hydrated, well nourished. Difficulty with moving and lying down which complicates exam. Skin: Skin color, texture, turgor normal, no suspicious rashes or lesions Head: Normocephalic, no masses, lesions, tenderness or abnormalities Back: tender on posterior back. Worse over spine. Lungs: Lungs clear to auscultation. No wheezing, rhonchi, rales Heart: RRR without murmur, gallop, or rub (more content not included)... [facility]02-02-2023 NoteHNO ID: [id number] Author: Yanely Posadas RN Service: ? Author Type: ? Type: Progress Notes Filed: 07/07/2022 2:05 PM Note Text: patient had inr completed at [facility] patients inr is 1.8 (patients inr range is 2.0-3.0) patient is currently taking 4mg Mon,Thurs and 2mg all other days patients last dose change was on 05/19/22 due to a high level of 3.2 (dose at that time was 4mg Mon,Tues,Wed and 2mg all other days) patient has had no changes in medication and patient was instructed last week to hold 3 doses (Mon,Tues,Wed due to a procedure) and no change in diet Advised patient to continue on the same dose(s) and that they would only be contacted regarding dosage and follow up instructions after review with provider, if a change is needed. Written instructions given and patient verbalized understanding. Presently scheduled in 2 weeks (07/21/22) for follow up INR since low level is most likely caused by the missed dosesMccull[facility] History of Present illness Narrative* Yanely Posadas RN - 07/07/2022 2:03 PM EST patient had inr completed at [facility] patients inr is 1.8 (patients inr range is 2.0-3.0) patient is currently taking 4mg Mon,Thurs and 2mg all other days patients last dose change was on 05/19/22 due to a high level of 3.2 (dose at that time was 4mg Mon,Tues,Wed and 2mg all other days) patient has had no changes in medication and patient was instructed last week to hold 3 doses (Mon,Tues,Wed due to a procedure) and no change in diet Advised patient to continue on the same dose(s) and that they would only be contacted regarding dosage and follow up instructions after review with provider, if a change is needed. Written instructions given and patient verbalized understanding. Presently scheduled in 2 weeks (07/21/22) for follow up INR since low level is most likely caused by the missed doses documented in this encounterReg[facility]01-30-2023 NoteHNO ID: [id number] Author: Bubba Dawn Service: ? Author Type: ? Type: Progress Notes Filed: 07/04/2022 12:37 PM Note Text: POPULATION HEALTH NAVIGATION OUTREACH Action/I 1st call, pt wants to wait to schedule Patient Identified by Name and : YES, via phone Outreach Outcome/Action Spoke to patient / parent / legal guardian: Patient declined Patient will return the call or ask for return call Did you use a PCP flex slot to schedule this appointment? No Reason for Outreach Care Gap or Scheduling/Wellness visits Payer: Payor: [employer] MEDICARE / Plan: [employer] MEDICARE PPO / Product Type: PPO / Care Gap Reviewed:: Specialty Scheduling Reminder: Reminder note to check Health Maintenance for items below Health Maintenance items due: COVID-19 VACCINE(1) Never done BP CONTROLLED (<130/80) Never done SHINGRIX VACCINE(1 of 2) Never done ADVANCE DIRECTIVE DISCUSSION due on 06/05/2022 DEPRESSION ASSESSMENT due on 06/05/2022 Navigation Signature: Bubba Dawn July 04, 2022 12:36 [facility]01-30-2023 Miscellaneous Notes* Telephone Encounter - Isaiah Skinner LPN - 07/04/2022 2:31 PM EST Pt notified. Isaiah Skinner LPN * Telephone Encounter - Wes Bonilla MD - 07/04/2022 2:02 PM EST ok * Telephone Encounter - Airam Ayon RN - 07/04/2022 1:41 PM EST Patient calling to ask if it's okay to have her INR done on 07/07 as previously scheduled instead of today or tomorrow? She resumed Coumadin after holding for thyroid biopsy per TE 06/29/22. Airam Ayon, RN documented in this encounterRegency Hospital [facility]01-30-2023 NotePatient Outreach ([facility]) NIMISHA CEJA ([id number]) 1945 F Date Time Provider Department 07/04/22 PCP (HISTORICAL) [facility] During your visit today, we recorded the following information about you: Bubba Jimmy 07/04/2022 12:37 PM Signed POPULATION HEALTH NAVIGATION OUTREACH Action/FYI 1st call, pt wants to wait to schedule Patient Identified by Name and : YES, via phone Outreach Outcome/Action Spoke to patient / parent / legal guardian: Patient declined Patient will return the call or ask for return call Did you use a PCP flex slot to schedule this appointment? No Reason for Outreach Care Gap or Scheduling/Wellness visits [facility]: [facility] / Plan: [employer] MEDICARE PPO / Product Type: PPO / Care Gap Reviewed:: Specialty Scheduling Reminder: Reminder note to check Health Maintenance for items below Health Maintenance items due: COVID-19 VACCINE(1) Never done BP CONTROLLED (<130/80) Never done SHINGRIX VACCINE(1 of 2) Never done ADVANCE DIRECTIVE DISCUSSION due on 06/05/2022 DEPRESSION ASSESSMENT due on 06/05/2022 Navigation Signature: Bubba Dawn July 04, 2022 12:36 PM Allergies As of Date: 07/04/2022 Noted Allergy Reaction CRESTOR (ROSUVASTATIN CALCIUM) 01/19/2011 14 - Other: See Comments Comments: Myalgia. IBUPROFEN 12/04/2008 14 - Other: See Comments Comments: dizzy PREVNAR 13 (PNEUMOC 13-CHU CONJ-D*07/27/2015 2 - Rash Comments: Presumed reaction to Prevnar. LATEX 12/08/2008 2 - Rash Comments: Local contact rash. Date Reviewed: 06/29/2022 Reviewed by: Maureen Padron MA - Fully Assessed Prescriptions as of 07/04/2022 - lidocaine (LIDODERM) 5 % Apply 2 Patches as directed once daily for 14 days. Remove old patch prior to placing new patch. Location: both sides of back. Leave on for 12 hours then take off for 12 hours - omeprazole (PRILOSEC) 40 mg capsule Take 1 capsule by mouth once daily. - metoprolol tartrate, short acting, (LOPRESSOR) 50 mg tablet Take 1 tablet by mouth twice daily. - warfarin (COUMADIN) 4 mg tablet 4 mg on M, W, F, 2 mg all other days. - amiodarone (PACERONE) 200 mg tablet Take 0.5 tablets by mouth once daily. - dilTIAZem CD (CARDIZEM CD, CARTIA XT) 240 mg 24 hr capsule Take 240 mg by mouth once daily. - furosemide (LASIX) 40 mg tablet Take 1 tablet by mouth twice daily. - WALKER ROLLATOR SEAT WITH 6 WHEELS - RED Daily use R26.81 Gait instability (primary encounter diagnosis) - potassium chloride 20 mEq TbER Take 1 tablet by mouth twice daily. - albuterol HFA (PROVENTIL HFA, VENTOLIN HFA) 90 mcg/actuation inhaler Inhale 2 Puffs as instructed every 4 hours as needed. 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 - MULTIVITAMIN ORAL Take 1 tablet by mouth once daily. Meds Comments as of 02/09/2022: 02/09/22 Severe med interactions noted between amiodarone and dilTIAZem CD; warfarin and amiodarone February 03, 2022 Ana Rosa Santamaria (Pharmacist) - Interviewed pt, assessed Rx fill hx and Epic data Problem List As Of Date 07/04/2022 Noted Resolved Dysphagia, unspecified(787.20) [R13.10] 05/08/2018 MARFAN'S SYNDROME [Q87.40] Esophageal reflux [K21.9] Nontoxic multinodular goiter [E04.2] 12/08/2008 05/08/2018 Gastrointestinal malfunction arising from menta*12/09/2008 10/10/2017 Esophagitis, unspecified [K20.90] 01/13/2009 10/10/2017 Hypertension [I10] 01/19/2011 06/23/2015 Hyperlipidemia [E78.5] 01/19/2011 History of polymyalgia rheumatica [Z87.39] 01/19/2011 Multiple thyroid nodules [E04.2] 03/03/2011 09/23/2020 Atrial fibrillation (HCC) [I48.91] 01/14/2014 10/10/2017 Centrilobular emphysema (HCC) [J43.2] 01/14/2014 Paroxysmal atrial fibrillation (HCC) [I48.0] Hypertension, essential [I10] 06/23/2015 Chronic anticoagulation [Z79.01] 06/23/2015 Fatigue [R53.83] 11/24/2016 10/10/2017 Lung nodule [R91.1] 06/06/2019 Chronic systolic heart failure (HCC) [I50.22] 11/21/2019 09/23/2020 Thoracic aorta atherosclerosis (HCC) [I70.0] 03/23/2020 09/23/2020 Pleural effusion, right [J90] 05/05/2020 Thyroid nodule [E04.1] 05/11/2020 Prediabetes [R73.03] 09/25/2020 Pulmonary hypertension (HCC) [I27.20] 05/11/2021 Moderate mitral regurgitation [I34.0] 06/18/2021 Encounter for support and coordination of trans*07/20/2021 Pleural effusion [J90] 01/31/2022 04/19/2022 Renal infarct (HCC) [N28.0] 04/19/2022 Encounter Status:Closed by BUBBA DAWN on 07/04/22[facility] 07-04-[facility] History of Present illness Narrative* Bubba Dawn - 07/04/2022 12:36 PM EST POPULATION HEALTH NAVIGATION OUTREACH Action/I 1st call, pt wants to wait to schedule Patient Identified by Name and : YES, via phone Outreach Outcome/Action Spoke to patient / parent / legal guardian: Patient declined Patient will return the call or ask for return call Did you use a PCP flex slot to schedule this appointment? No Reason for Outreach Care Gap or Scheduling/Wellness visits Payer: Payor: [employer] MEDICARE / Plan: [employer] MEDICARE PPO / Product Type: PPO / Care Gap Reviewed:: Specialty Scheduling Reminder: Reminder note to check Health Maintenance for items below Health Maintenance items due: COVID-19 VACCINE(1) Never done BP CONTROLLED (<130/80) Never done SHINGRIX VACCINE(1 of 2) Never done ADVANCE DIRECTIVE DISCUSSION due on 06/05/2022 DEPRESSION ASSESSMENT due on 06/05/2022 Navigation Signature: Bubba Dawn July 04, 2022 12:36 PM documented in this encounterRegency Hospital [facility]01-26-2023 Miscellaneous Notes* Telephone Encounter - Debbie Long Ma - 06/30/2022 9:37 AM EST Patient instructed of dosage with teach back method. Verbalizes understanding. * Telephone Encounter - Cadence Bustillo LPN - 06/29/2022 5:10 PM EST Tracker updated. Attempted to reach patient and no answer no voicemail. * Telephone Encounter - Wes Bonilla MD - 06/29/2022 4:59 PM EST Can take 4 mg and Mon and 2 each day rest of the week. Recheck it Mon or Monday * Telephone Encounter - Yolis Tran RN - 06/29/2022 4:53 PM EST Pt called in and reports she had a Thyroid biopsy and she did not take her Coumadin yesterday or today. She was told by Dr Evans she could restart it tomorrow. She reports she normally takes 4 mg Mon/Mon and 2 mg all other days. She was asking if she should take a 4 mg on since she missed the Tue dose or if she should only take the 2 mg. Please call and advise. documented in this encounterRegency Hospital [facility]01-25-2023 NoteHNO ID: [id number] Author: Shanta Logan APRN.[facility] Service: ? Author Type: Nurse Practitioner Type: Progress Notes Filed: 06/29/2022 4:09 PM Note Text: Subjective Patient came in with complaints of back pain that goes from her shoulders all the way down to her lower back. Patient says its like a crampy stabbing pain. Patient says its been there for about a week and a half. Patient has just taken Tylenol patient has not tried any warm baths or heating pads. Patient said she was trying to move her refrigerator in her kitchen by herself. Patient says the pain started after that. Patient denies any difficulty with range of motion numbness tingling or loss of feeling. Patient denies any injuries. Patient denies any other symptoms. The history is provided by the patient. No speech and language clinician was used. Review of Systems Constitutional: Negative. Skin: Negative. Objective Physical Exam Constitutional: Appearance: Normal appearance. Pulmonary: Effort: Pulmonary effort is normal. Musculoskeletal: Arms: Comments: Patient is tender in the middle the purple area no swelling bruising noted. Neurological: Mental Status: She is alert. PAST MEDICAL HISTORY Diagnosis Date A-fib ([facility]) Class 1 congestive heart failure, unspecified failure chronicity, systolic ([facility]) 11/21/2019 Dysphagia, unspecified(787.20) Esophageal reflux Esophagitis, unspecified Marfan's syndrome Moderate mitral regurgitation 06/18/2021 04/27/21 Echo at [facility]. Pleural effusion, right 05/05/2020 CXR 11/18/19 and 05/04/20. Unspecified essential hypertension PAST SURGICAL HISTORY Procedure Laterality Date COLONOSCOPY FLX DX W/COLLJ SPEC WHEN PFRMD 10/16/14 Colonoscopy EGD TRANSORAL BIOPSY SINGLE/MULTIPLE 01/13/09 ESOPHAGOGASTRODUODENOSCOPY TRANSORAL DIAGNOSTIC 10/16/14 EGD FNA WITH IMAGING 03/16/11 U/S FNA left mid/lower lobe thyroid nodule MAMMOGRAM BILATERAL August 2010? PAST SURGICAL HISTORY OF tubial pregnacy/tube removed PAST SURGICAL HISTORY OF eye surgery bilateral TOTAL ABDOMINAL HYSTERECT W/WO RMVL TUBE OVARY Hysterectomy, MICHOACANO ALLERGIES Crestor [Rosuvastatin Calcium], Ibuprofen, Prevnar 13 [Pneumoc 13-Chu Conj-Dip Cr(Pf)], and Latex MEDICATIONS omeprazole (PRILOSEC) 40 mg capsule Take 1 capsule by mouth once daily. metoprolol tartrate, short acting, (LOPRESSOR) 50 mg tablet Take 1 tablet by mouth twice daily. warfarin (COUMADIN) 4 mg tablet 4 mg on M, W, F, 2 mg all other days. (Patient taking differently: 4 mg on M, W, 2 mg all other days-pt started this dosing on 02/18/22.) amiodarone (PACERONE) 200 mg tablet Take 0.5 tablets by mouth once daily. dilTIAZem CD (CARDIZEM CD, CARTIA XT) 240 mg 24 hr capsule Take 240 mg by mouth once daily. furosemide (LASIX) 40 mg tablet Take 1 tablet by mouth twice daily. WALKER ROLLATOR SEAT WITH 6 WHEELS - RED Daily use R26.81 Gait instability (primary encounter diagnosis) potassium chloride 20 mEq TbER Take 1 tablet by mouth twice daily. albuterol HFA (PROVENTIL HFA, VENTOLIN HFA) 90 mcg/actuation inhaler Inhale 2 Puffs as instructed every 4 hours as needed. 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 MULTIVITAMIN ORAL Take 1 tablet by mouth once daily. lidocaine (LIDODERM) 5 % Apply 2 Patches as directed once daily for 14 days. Remove old patch prior to placing new patch. Location: both sides of back. Leave on for 12 hours then take off for 12 hours FAMILY HISTORY Problem Relation Age of Onset Diabetes Mother Cancer Mother other (marfan syndrome) Mother GI Father ulcer Diabetes Sister other (marfan syndrome) Brother x2 Stroke Maternal Grandmother Hypertension Sister Hypertension Brother COPD Brother Emphysema COPD Daughter Emphysema Social History Tobacco Use Smoking status: Never Smokeless tobacco: Never Tobacco comments: Spouse smoked cigars in home until about 2003. Vaping Use Vaping Use: Never used Substance Use Topics Alcohol use: No Drug use: No ASSESSMENT/PLAN: 1. Upper back pain - ICD9: 724.5, ICD10: M54.9 - LIDOCAINE 5 % TOPICAL PATCH - LIDOCAINE 5 % TOPICAL PATCH - CONSULT TO ORTHOPAEDICS Patient was educated about proper use of Lidoderm patches. Patient will follow-up with orthopedics if pain is persistent for another week or so. No x-rays at this time due to no limitation with range of motion and causative factor known. Patient will not move any heavy objects alone. Patient will also follow-up sooner if it is getting worse not better. Patient was okay with this care plan. Shanta Logan APRN.[facility]01-[facility] History of Present illness Narrative* Shanta Logan APRN.[facility] - 06/29/2022 3:59 PM EST Images from the original note were not included. Subjective Patient came in with complaints of back pain that goes from her shoulders all the way down to her lower back. Patient says its like a crampy stabbing pain. Patient says its been there for about a week and a half. Patient has just taken Tylenol patient has not tried any warm baths or heating pads. Patient said she was trying to move her refrigerator in her kitchen by herself. Patient says the painstarted after that. Patient denies any difficulty with range of motion numbness tingling or loss offeeling. Patient denies any injuries. Patient denies any other symptoms. The history is provided by the patient. No speech and language clinician was used. Review of Systems Constitutional: Negative. Skin: Negative. Objective Physical Exam Constitutional: Appearance: Normal appearance. Pulmonary: Effort: Pulmonary effort is normal. Musculoskeletal: Arms: Comments: Patient is tender in the middle the purple area no swelling bruising noted. Neurological: Mental Status: She is alert. PAST MEDICAL HISTORY Diagnosis Date A-fib ([facility]) Class 1 congestive heart failure, unspecified failure chronicity, systolic ([facility]) 11/21/2019 Dysphagia, unspecified(787.20) Esophageal reflux Esophagitis, unspecified Marfan's syndrome Moderate mitral regurgitation 06/18/2021 04/27/21 Echo at [facility]. Pleural effusion, right 05/05/2020 CXR 11/18/19 and 05/04/20. Unspecified essential hypertension PAST SURGICAL HISTORY Procedure Laterality Date COLONOSCOPY FLX DX W/COLLJ SPEC WHEN PFRMD 10/16/14 Colonoscopy EGD TRANSORAL BIOPSY SINGLE/MULTIPLE 01/13/09 ESOPHAGOGASTRODUODENOSCOPY TRANSORAL DIAGNOSTIC 10/16/14 EGD FNA WITH IMAGING 03/16/11 U/S FNA left mid/lower lobe thyroid nodule MAMMOGRAM BILATERAL August 2010? PAST SURGICAL HISTORY OF tubial pregnacy/tube removed PAST SURGICAL HISTORY OF eye surgery bilateral TOTAL ABDOMINAL HYSTERECT W/WO RMVL TUBE OVARY Hysterectomy, MICHOACANO ALLERGIES Crestor [Rosuvastatin Calcium], Ibuprofen, Prevnar 13 [Pneumoc 13-Chu Conj-Dip Cr(Pf)], and Latex MEDICATIONS omeprazole (PRILOSEC) 40 mg capsule Take 1 capsule by mouth once daily. metoprolol tartrate, short acting, (LOPRESSOR) 50 mg tablet Take 1 tablet by mouth twice daily. warfarin (COUMADIN) 4 mg tablet 4 mg on , W, F, 2 mg all other days. (Patient taking differently: 4 mg on M, W, 2 mg all other days-pt started this dosing on 02/18/22.) amiodarone (PACERONE) 200 mg tablet Take 0.5 tablets by mouth once daily. dilTIAZem CD (CARDIZEM CD, CARTIA XT) 240 mg 24 hr capsule Take 240 mg by mouth once daily. furosemide (LASIX) 40 mg tablet Take 1 tablet by mouth twice daily. WALKER ROLLATOR SEAT WITH 6 WHEELS - RED Daily use R26.81 Gait instability (primary encounter diagnosis) potassium chloride 20 mEq TbER Take 1 tablet by mouth twice daily. albuterol HFA (PROVENTIL HFA, VENTOLIN HFA) 90 mcg/actuation inhaler Inhale 2 Puffs as instructed every 4 hours as needed. 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 MULTIVITAMIN ORAL Take 1 tablet by mouth once daily. lidocaine (LIDODERM) 5 % Apply 2 Patches as directed once daily for 14 days. Remove old patch priorto placing new patch. Location: both sides of back. Leave on for 12 hours then take off for 12 hours FAMILY HISTORY Problem Relation Age of Onset Diabetes Mother Cancer Mother other (marfan syndrome) Mother GI Father ulcer Diabetes Sister other (marfan syndrome) Brother x2 Stroke Maternal Grandmother Hypertension Sister Hypertension Brother COPD Brother Emphysema COPD Daughter Emphysema Social History Tobacco Use Smoking status: Never Smokeless tobacco: Never Tobacco comments: Spouse smoked cigars in home until about 2003. Vaping Use Vaping Use: Never used Substance Use Topics Alcohol use: No Drug use: No ASSESSMENT/PLAN: 1. Upper back pain - ICD9: 724.5, ICD10: M54.9 - LIDOCAINE 5 % TOPICAL PATCH - LIDOCAINE 5 % TOPICAL PATCH - CONSULT TO ORTHOPAEDICS Patient was educated about proper use of Lidoderm patches. Patient will follow- up with orthopedics if pain is persistent for another week or so. No x-rays at this time due to no limitation with rangeof motion and causative factor known. Patient will not move any heavy objects alone. Patient will also follow-up sooner if it is getting worse not better. Patient was okay with this care plan. Shanta Logan APRN.TRICIA documented in this encounterReg[facility]23 NotePatient Outreach ([facility]) NIMISHA CEJA ([id number]) 1945 F Date Time Provider Department 06/21/22 ELISABETH CANCHOLA During your visit today, we recorded the following information about you: Elisabeth Canchola RN 06/21/2022 1:03 PM Signed [facility] TELEPHONIC OUTREACH Provider Action/FYI: Patient reports she is doing good, is having a thyroid biopsy with Dr Evans 06/29, seeing Dr Arriaga 06/27. Patient had no questions, concerns, needs at this time. Contact made with patient: Yes Patient identified by name and . Discussed care with patient It?s nice talking to you again. As a reminder, this is our monthly check-in where I will be asking you questions about your health. This will only take a few minutes of your time. Is this a good time? Yes Symptoms What Chronic Disease(s) does the patient have: COPD Do you check your blood pressures at home? No Do you have new or worse shortness of breath with activity? No Do you have new or worsening cough? No Do you have new or worsening wheezing? No Do you need to use your rescue (Albuterol) inhaler or nebulizer more often than normal? No Are you having any other symptoms that your PCP needs to know about? No Symptoms: No Symptom Escalation FAVIOLA Education Ordered -: No The patient required an escalation for symptom(s)? No Medications Do you have any questions about taking your medication or which medications you should be on? No Do you need any medication refills at this time, including any of the medications you might take only when needed? No Social We would like to make sure you have what you need so that your basic needs are met- including your personal safety, food, housing and medications? Would you like to speak with a social work team supervisor to help give you support for any of these needs? No It can be normal to feel anxious or down during a time like this. Would you like to talk to a mental health professional about how you have been feeling? No Closing Thank you for taking the time to talk with me today. We want to work with you to ensure that we are keeping your medical condition(s) well-controlled and to keep you healthy and out of the doctor's office or hospital. It?s also not too late for me to sign you up for automated weekly questionnaires through [employer]. This is an easy way for us to stay connected each week. Are you interested? No, I understand. We can always sign you up in the future if you change your mind. Just as a reminder, will continue to call you every other week to check in on your health. Our calls should take 10-15 minutes or less. Remember, if you have concerns in between our calls, please call your PCP's office right away. Thank you. Enter next patient outreach date for two weeks on the same day of the week as today in the Track Pt Outreach and End outreach. Allergies As of Date: 06/21/2022 Noted Allergy Reaction CRESTOR (ROSUVASTATIN CALCIUM) 01/19/2011 14 - Other: See Comments Comments: Myalgia. IBUPROFEN 12/04/2008 14 - Other: See Comments Comments: dizzy PREVNAR 13 (PNEUMOC 13-CHU CONJ-D*07/27/2015 2 - Rash Comments: Presumed reaction to Prevnar. LATEX 12/08/2008 2 - Rash Comments: Local contact rash. Date Reviewed: 05/17/2022 Reviewed by: Shannon Chiu APRN.PATIENT ACCESS DIRECTOR - Fully Assessed Reason for Visit: Community Monitoring Outreach [Other] Cmt: CDM Prescriptions as of 06/21/2022 - omeprazole (PRILOSEC) 40 mg capsule Take 1 capsule by mouth once daily. - metoprolol tartrate, short acting, (LOPRESSOR) 50 mg tablet Take 1 tablet by mouth twice daily. - warfarin (COUMADIN) 4 mg tablet 4 mg on M, W, F, 2 mg all other days. - amiodarone (PACERONE) 200 mg tablet Take 0.5 tablets by mouth once daily. - dilTIAZem CD (CARDIZEM CD, CARTIA XT) 240 mg 24 hr capsule Take 240 mg by mouth once daily. - furosemide (LASIX) 40 mg tablet Take 1 tablet by mouth twice daily. - WALKER ROLLATOR SEAT WITH 6 WHEELS - RED Daily use R26.81 Gait instability (primary encounter diagnosis) - potassium chloride 20 mEq TbER Take 1 tablet by mouth twice daily. - albuterol HFA (PROVENTIL HFA, VENTOLIN HFA) 90 mcg/actuation inhaler Inhale 2 Puffs as instructed every 4 hours as needed. 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 - MULTIVITAMIN ORAL Take 1 tablet by mouth once daily. Meds Comments as of 02/09/2022: 02/09/22 Severe med interactions noted between amiodarone and dilTIAZem CD; warfarin and amiodarone February 03, 2022 Ana Rosa Santamaria (Pharmacist) - Interviewed pt, assessed Rx fill hx and Epic data Problem List As Of Date 06/21/2022 Noted Resolved Dysphagia, unspecified(787.20) [R13.10] 05/08/2018 ANUP (more content not included)...[facility]01-17-[facility]23 Note HNO ID: [id number] Author: Elisabeth Canchola RN Service: ? Author Type: Registered Nurse Type: Progress Notes Filed: 06/21/2022 1:03 PM Note Text: [facility] TELEPHONIC OUTREACH Provider Action/FYI: Patient reports she is doing good, is having a thyroid biopsy with Dr Evans 06/29, seeing Dr Arriaga 06/27. Patient had no questions, concerns, needs at this time. Contact made with patient: Yes Patient identified by name and . Discussed care with patient It?s nice talking to you again. As a reminder, this is our monthly check-in where I will be asking you questions about your health. This will only take a few minutes of your time. Is this a good time? Yes Symptoms What Chronic Disease(s) does the patient have: COPD Do you check your blood pressures at home? No Do you have new or worse shortness of breath with activity? No Do you have new or worsening cough? No Do you have new or worsening wheezing? No Do you need to use your rescue (Albuterol) inhaler or nebulizer more often than normal? No Are you having any other symptoms that your PCP needs to know about? No Symptoms: No Symptom Escalation FAVIOLA Education Ordered -: No The patient required an escalation for symptom(s)? No Medications Do you have any questions about taking your medication or which medications you should be on? No Do you need any medication refills at this time, including any of the medications you might take only when needed? No Social We would like to make sure you have what you need so that your basic needs are met- including your personal safety, food, housing and medications? Would you like to speak with a social work team supervisor to help give you support for any of these needs? No It can be normal to feel anxious or down during a time like this. Would you like to talk to a mental health professional about how you have been feeling? No Closing Thank you for taking the time to talk with me today. We want to work with you to ensure that we are keeping your medical condition(s) well-controlled and to keep you healthy and out of the doctor's office or hospital. It?s also not too late for me to sign you up for automated weekly questionnaires through [employer]. This is an easy way for us to stay connected each week. Are you interested? No, I understand. We can always sign you up in the future if you change your mind. Just as a reminder, will continue to call you every other week to check in on your health. Our calls should take 10-15 minutes or less. Remember, if you have concerns in between our calls, please call your PCP's office right away. Thank you. Enter next patient outreach date for two weeks on the same day of the week as today in the Track Pt Outreach and End outreach.[facility] 06-21-2022 History of Present illness Narrative* Elisabeth Canchola RN - 06/21/2022 11:52 AM EST [facility] TELEPHONIC OUTREACH Provider Action/FYI: Patient reports she is doing good, is having a thyroid biopsy with Dr Evans 06/29, seeing Dr Arriaga 06/27. Patient had no questions, concerns, needs at this time. Contact made with patient: Yes Patient identified by name and . Discussed care with patient It s nice talking to you again. As a reminder, this is our monthly check-in where I will be asking you questions about your health. This will only take a few minutes of your time. Is this a good time? Yes Symptoms What Chronic Disease(s) does the patient have: COPD Do you check your blood pressures at home? No Do you have new or worse shortness of breath with activity? No Do you have new or worsening cough? No Do you have new or worsening wheezing? No Do you need to use your rescue (Albuterol) inhaler or nebulizer more often than normal? No Are you having any other symptoms that your PCP needs to know about? No Symptoms: No Symptom Escalation FAVIOLA Education Ordered -: No The patient required an escalation for symptom(s)? No Medications Do you have any questions about taking your medication or which medications you should be on? No Do you need any medication refills at this time, including any of the medications you might take only when needed? No Social We would like to make sure you have what you need so that your basic needs are met- including your personal safety, food, housing and medications? Would you like to speak with a social work team supervisor to help give you support for any of these needs? No It can be normal to feel anxious or down during a time like this. Would you like to talk to a mental health professional about how you have been feeling? No Closing Thank you for taking the time to talk with me today. We want to work with you to ensure that we arekeeping your medical condition(s) well-controlled and to keep you healthy and out of the doctor's office or hospital. It s also not too late for me to sign you up for automated weekly questionnaires through [employer]. This is an easy way for us to stay connected each week. Are you interested? No, I understand. We can always sign you up in the future if you change your mind. Just as a reminder, will continue to call you every other week to check in on your health. Our calls should take 10-15 minutes or less. Remember, if you have concerns in between our calls, please call your PCP's office right away. Thank you. Enter next patient outreach date for two weeks on the same day of the week as today in the Track PtOutreach and End outreach. documented in this encounterRegency [facility]01-13-2023 Miscellaneous Notes* Telephone Encounter - Felisha Ordaz LPN - 06/17/2022 2:36 PM EST Patient calling started with symptoms few days ago, dry cough, congestion, sneezing. No appt available with PCP or PRODUCTION HELPER this afternoon. [facility] and gave herhours of operation. documented in this encounterRegency Hospital [facility]01-05-2023 NoteHNO ID: [id number] Author: Wse Bonilla MD Service: ? Author Type: Physician Type: Progress Notes Filed: 06/09/2022 2:54 PM Note Text: agreeM[facility]23 NoteHNO ID: [id number] Author: Yanely Posadas RN Service: ? Author Type: ? Type: Progress Notes Filed: 06/09/2022 2:54 PM Note Text: patient had inr completed at [facility] patients inr is 2.2 (patients inr range is 2.0-3.0) patient is currently taking 4mg Mon,Tues and 2mg all other days patients last dose change was on 05/19/22 due to a high level of 3.2 (dose at that time was 4mg mon,Tues,Wed and 2mg all other days) patient has had no changes in medication and no missed doses and no change in diet Advised patient to continue on the same dose(s) and that they would only be contacted regarding dosage and follow up instructions after review with provider, if a change is needed. Written instructions given and patient verbalized understanding. Presently scheduled in 4 weeks (07/07/22) for follow up INR.[facility]12-30-2022 Miscellaneous Notes* Telephone Encounter - Myah Dunn RN - 06/03/2022 2:46 PM EST Faxed general surgery referral and US thyroid results to Dr. Abimael Evans, [facility], per patient request. . Reports Dr. Saab's office cancelled the appt with him b/c he will be out [facility]. Reports Dr. Maxine Evans agreeable to see her. * Telephone Encounter - Yolis Tran RN - 06/02/2022 10:22 AM EST Pt called and is notified of providers message and instructions. Pt voices understanding. States she will call back to reschedule appointment. Yolis Tran RN * Telephone Encounter - Wes Bonilla MD - 06/02/2022 8:05 AM EST Her appt with surgery for her thyroid nodule had been cancelled. Please make sure she is rescheduled. * Telephone Encounter - Wes Bonilla MD - 06/02/2022 8:05 AM EST ----- Message from Verito Zaldivar sent at 05/19/2022 6:12 PM EST ----- Regarding: Actionable Imaging Result You are listed as the PCP for this patient who has a potential actionable result on a recent imaging study. The ordering provider for this exam was notified 2 weeks ago. If the ordering provider has not resolved the recommendation, please take appropriate action. If appropriate action has occurred,then consider this message informational to support you in caring for your patient. [facility] is committed to providing safe care with ZERO HARM to all patients and caregivers.Thank you for your commitment to caring for your patient. Do not respond to this email which is generated by an algorithm. Responses are not monitored. IMPRESSION: Thyroid nodule(s) is/are present. Fine needle aspiration is recommended for one or more nodules as detailed in the synoptic report. TI-RADS Category: TR5 ACR Recommendation: TI-RADS 5 nodule. FNA is advised. ACR recommendations are strictly based on the size and imaging appearance at the time of the exam and do not consider stability or previous biopsy results. ACTIONABLE RESULT: FOLLOW-UP Acuity: Actionable Findings: Endocrine (thyroid) Routing Code: EMI_1 Recommendation: Unlisted Recommendation (see report) Time Frame: At the discretion of the clinical team. documented in this encounterRegency Hospital [facility]12-22-2022 History of Present illness Narrative* Wes Bonilla MD - 05/26/2022 2:55 PM EST agree * Yanely Posadas RN - 05/26/2022 2:30 PM EST patient had inr completed at [facility] patients inr is 2.8 (patients inr range is 2.0-3.0) patient is currently taking 4mg Mon,Tues and 2mg all other days patients last dose change was on 05/19/22 due to a high level of 3.2 (dose at that time was 4mg Mon,tues,Wed and 2mg all other days) patient has had no changes in medication except for coumadin and no missed doses and no change in diet Advised patient to continue on the same dose(s) and that they would only be contacted regarding dosage and follow up instructions after review with provider, if a change is needed. Written instructions given and patient verbalized understanding. Presently scheduled in 2 weeks (06/09/22) for follow up INR since this is the first normal reading since dose change documented in this encounterRegency Hospital [facility]12-17-2022 Miscellaneous Notes* Telephone Encounter - Yolis Tran RN - 05/21/2022 10:53 AM EST Pt called and is notified of providers results and instructions. Pt voices understanding. Pt put through to scheduling to set up and appointment with General Surgery. Yolis Tran RN * Telephone Encounter - Dalila Jensen APRN.TRICIA - 05/20/2022 6:11 PM EST Can please let patient know that we received her thyroid ultrasound results, which did show some thyroid nodules. They are recommending a biopsy of at least one of the nodules. We went ahead and placed the referral to general surgery. Please help schedule. documented in this encounterRegency Hospital [facility]12-15-2022 History of Present illness Narrative* Yanely Posadas RN - 05/19/2022 3:15 PM EST PATIENT NOTIFIED OF INFORMATION * Eddie Nunez MD - 05/19/2022 2:52 PM EST INR slightly high. Decrease dose to 4 mg Mon, Tues and 2 mg all other days. Recheck in 1 week. * Yanely Posadas RN - 05/19/2022 2:34 PM EST patient had inr completed at [facility] patients inr is 3.2 (patients inr range is 2.0-3.0) patient is currently taking 4mg Mon,Tues,Wed and 2mg all other days patients last dose change was on 03/15/22 due to a low level of 1.8 (dose at that time was 4mg Mon,Wed and 2mg all other days) patient has had no changes in medication and no missed doses and no change in diet Advised patient that they would be contacted regarding medication dose and when to follow up after information is reviewed by provider. After provider review please contact the patient with information and schedule follow up appointment with coumadin clinic. FYI- patient has been scheduled for a 1 week follow up inr on 05/26/22 documented in this encounterRegency Hospital [facility]12-14-2022 History of Present illness Narrative* Elisabeth Canchola RN - 05/18/2022 11:15 AM EST [facility] TELEPHONIC OUTREACH Provider Action/FYI: Patient seen at [facility] yesterday for rib pain from a fall she had at the beginning of the month. Patient states she is improving, still unable to bend down and pick things up off the floor. Patient states she was unable to take deep breaths, this is also improving. Educated patient on the importance of deep breathing as there is a possibility of developing pneumonia. Suggested to patient to keep a small pillow or folded up small blankets with her to hold to the area of pain when she needs to cough, and take deep breaths. Patient agreeable, voiced appreciation. Verified lab appt tomorrow to check INR. Patient had no further questions, concerns, needs. Contact made with patient: Yes Patient identified by name and . Discussed care with patient It s nice talking to you again. As a reminder, this is our bi-weekly check-in where I will be asking you questions about your health. This will only take a few minutes of your time. Is this a good time? Yes Symptoms What Chronic Disease(s) does the patient have: COPD Do you check your blood pressures at home? Yes, Enter readings: Did not inquire. Do you have new or worse shortness of breath with activity? No Do you have new or worsening cough? No Do you have new or worsening wheezing? No Do you need to use your rescue (Albuterol) inhaler or nebulizer more often than normal? No Are you having any other symptoms that your PCP needs to know about? No Symptom Escalation The patient required an escalation for symptom(s)? No Medications Do you have any questions about taking your medication or which medications you should be on? No Do you need any medication refills at this time, including any of the medications you might take only when needed? No Social We would like to make sure you have what you need so that your basic needs are met- including your personal safety, food, housing and medications? Would you like to speak with a social work team supervisor to help give you support for any of these needs? No It can be normal to feel anxious or down during a time like this. Would you like to talk to a mental health professional about how you have been feeling? No Closing Thank you for taking the time to talk with me today. We want to work with you to ensure that we arekeeping your medical condition(s) well-controlled and to keep you healthy and out of the doctor's office or hospital. It s also not too late for me to sign you up for automated weekly questionnaires through [employer]. This is an easy way for us to stay connected each week. Are you interested? No, I understand. We can always sign you up in the future if you change your mind. Just as a reminder, will continue to call you every other week to check in on your health. Our calls should take 10-15 minutes or less. Remember, if you have concerns in between our calls, please call your PCP's office right away. Thank you. Enter next patient outreach date for two weeks on the same day of the week as today in the Track PtOutreach and End outreach. * Elisabeth Canchola RN - 05/18/2022 9:53 AM EST [facility] TELEPHONIC OUTREACH Provider Action/FYI: Contact made with patient: Yes Patient identified by name and . Discussed care with patient It s nice talking to you again. As a reminder, this is our bi-weekly check-in where I will be asking you questions about your health. This will only take a few minutes of your time. Is this a good time? No - today is not a good time for the patient. Agree on a call back time and connect with the patient then. If applicable, update the next patient outreach date using the Track Pt Outreach. End outreach documented in this encounterRegency Hospital [facility]12-13-2022 Instructions* Patient Instructions* Shannon Chiu APRN.TRICIA - 05/17/2022 3:25 PM EST Warm compresses Encourage deep breathing. Tylenol as needed for pain Follow up with PCP as needed documented in this encounterRegency Hospital [facility]12-13-2022 History of Present illness Narrative* Shannon Chiu APRN.TRICIA - 05/17/2022 2:38 PM EST Images from the original note were not included. Subjective The history is provided by the patient. No speech and language clinician was used. HPI Nimisha Ceja is a 76 year old female who presents today for CC of left rib and chest pain, that started 10 days ago when she fell. She is having pain with BP 132/82 Pulse (!) 58 Temp 36.6 C (97.8 F) (Tympanic) Resp 18 Wt 62 kg (136 lb 9.6 oz) SpO2 94% BMI 25.81 kg/m Social History Tobacco Use Smoking status: Never Smokeless tobacco: Never Tobacco comments: Spouse smoked cigars in home until about 2003. Vaping Use Vaping Use: Never used Substance Use Topics Alcohol use: No Drug use: No PAST MEDICAL HISTORY Diagnosis Date A-fib ([facility]) Class 1 congestive heart failure, unspecified failure chronicity, systolic ([facility]) 11/21/2019 Dysphagia, unspecified(787.20) Esophageal reflux Esophagitis, unspecified Marfan's syndrome Moderate mitral regurgitation 06/18/2021 04/27/21 Echo at [facility]. Pleural effusion, right 05/05/2020 CXR 11/18/19 and 05/04/20. Unspecified essential hypertension I have confirmed and edited as necessary, the [facility] Review of Systems Constitutional: Negative for chills and fever. HENT: Negative for congestion, ear pain, sinus pain and sore throat. Respiratory: Negative for cough, sputum production, shortness of breath and wheezing. Cardiovascular: Positive for chest pain (rib). Musculoskeletal: Negative for myalgias. Neurological: Negative for headaches. Objective Physical Exam Vitals and nursing note reviewed. HENT: Head: Normocephalic and atraumatic. Pulmonary: Effort: Pulmonary effort is normal. Breath sounds: Normal breath sounds. Chest: ASSESSMENT/PLAN: 1. Rib pain - ICD9: 786.50, ICD10: R07.81 Warm compresses Encourage deep breathing. Tylenol as needed for pain Follow up with PCP as needed - XR RIBS/CHEST 3V AP RIB/OBLS/CXR LEFT FINDINGS: Stable cardiomediastinal silhouette with stable fullness of the right hilum. Small right pleural effusion and/or pleural thickening, slightly decreased when compared with prior study. No discernible pneumothorax. Osseous demineralization. No radiographic evidence of acute displaced left rib fracture. IMPRESSION: No radiographic evidence of acute displaced left rib fracture. Small right pleural effusion and/or pleural thickening, slightly decreased when compared with prior study. Interpreted by : MD Shannon WHALEN APRN.PATIENT ACCESS DIRECTOR documented in this encounterReg[facility]-13-2022 History of Present illness Narrative* Apoorva Palma RDMS - 05/17/2022 1:45 PM EST Radiology Service Progress Note PATIENT NAME: Nimisha Ceja DATE OF SERVICE: May 17, 2022 TIME: 2:04 PM PATIENT IDENTITY VERIFICATION COMPLETED USING TWO (2) IDENTIFIERS: Name and Date of confirmedby patient verbally. FALL SCREENING: Has the patient had 2 falls in the last year or 1 fall with injury or currently using an Ambulatory Assistive Device (Walker, Cane, Wheelchair, Crutches, etc.)? No PATIENT GENDER DATA: Female. status: : No status: NO. PATIENT RELEVANT IMPLANT DATA REVIEWED: Not Applicable RADIOLOGY DEPARTMENT: Ultrasound PERIPHERAL IV DATA: Not applicable SIGNED BY: Apoorva Palma RDMS RVT May 17, 2022 2:04 PM documented in this encounterRegency [facility]11-22-2022 History of Present illness Narrative* Elisabeth Canchola RN - 04/26/2022 9:13 AM EST INSIGHT CDM TELEPHONIC OUTREACH Provider Action/FYI: Patient reports last night she threw up x2, this morning she had 2 episodes of diarrhea. Patient was able to eat a couple of crackers, sipping on Sprite. Patient denies fever, chills, body aches, sob Advised patient to stick with a BRAT diet, keep sipping on Sprite/Gingerale, get some Gatorade, rest and stay warm. Patient agreeable, states she will have someone get her some Gatorade, voiced appreciation. Contact made with patient: Yes Patient identified by name and . Discussed care with patient It s nice talking to you again. As a reminder, this is our bi-weekly check-in where I will be asking you questions about your health. This will only take a few minutes of your time. Is this a good time? Yes Symptoms What Chronic Disease(s) does the patient have: COPD Do you check your blood pressures at home? No Do you have new or worse shortness of breath with activity? No Do you have new or worsening cough? No Do you have new or worsening wheezing? No Do you need to use your rescue (Albuterol) inhaler or nebulizer more often than normal? No Are you having any other symptoms that your PCP needs to know about? No Symptom Escalation The patient required an escalation for symptom(s)? No Medications Do you have any questions about taking your medication or which medications you should be on? No Do you need any medication refills at this time, including any of the medications you might take only when needed? No Social We would like to make sure you have what you need so that your basic needs are met- including your personal safety, food, housing and medications? Would you like to speak with a social work team supervisor to help give you support for any of these needs? No It can be normal to feel anxious or down during a time like this. Would you like to talk to a mental health professional about how you have been feeling? No Closing Thank you for taking the time to talk with me today. We want to work with you to ensure that we arekeeping your medical condition(s) well-controlled and to keep you healthy and out of the doctor's office or hospital. It s also not too late for me to sign you up for automated weekly questionnaires through [employer]. This is an easy way for us to stay connected each week. Are you interested? No, I understand. We can always sign you up in the future if you change your mind. Just as a reminder, will continue to call you every other week to check in on your health. Our calls should take 10-15 minutes or less. Remember, if you have concerns in between our calls, please call your PCP's office right away. Thank you. Enter next patient outreach date for two weeks on the same day of the week as today in the Track PtOutreach and End outreach. documented in this encounterRegency [facility]11-16-2022 Miscellaneous Notes* Telephone Encounter - Alma Delia Doyle RN - 04/20/2022 9:01 AM EST Patient notified of message below. Alma Delia Doyle RN * Telephone Encounter - Wes Bonilla MD - 04/20/2022 8:37 AM EST Anemia is better. Kidney function slightly reduced. Cholesterol up slightly. Watch cholesterol in the diet. Recheck bmp in two weeks. documented in this encounterRegency [facility]11-15-2022 Miscellaneous Notes* Telephone Encounter - Deana Coleman RN - 04/19/2022 4:22 PM EST Patient called and notified to keep coumadin dose the same and recheck in one month. Patient voicedunderstanding. Deana Coleman RN * Telephone Encounter - Wes Bonilla MD - 04/19/2022 4:11 PM EST Same. Recheck one month * Telephone Encounter - Mimi Feldman LPN - 04/19/2022 3:54 PM EST Last INR: PT INR 2.0 04/19/2022 Current dose of coumadin is: 4 mg MW, 2mg all other days. Previous INR (date and result): 2.1 03/29/2022 Additional Clinical Information or narrative: no Protime 22.1 documented in this encounterRegency Hospital [facility]11-15-2022 History of Past illness Narrative* Problem Noted Date Resolved Date Renal infarct 04/19/2022 07/26/2022 Overview: Has seen Dr. Chaney. Needs to just follow up prn. Pleural effusion 01/31/2022 04/19/2022 Encounter for support and coordination of transi tion of care 07/20/2021 07/26/2022 Overview: Facility: [facility] Date of admission 07/14/2021 Date of discharge Prehospital work-up: Presented to 07/14/2021 to [facility] ED complaining of left-sided abdominal pain with multiple symptoms including cough, myalgias, nasal congestion, low dietary intake due to concerns that would aggravate stomach ache. Patient was exposed to Covid 2 weeks prior, unvaccinated. Vital signs: 98.3 K-642-10-143/102-93% RA. Exam description: Tired, alert and nontoxic, normal respiratory effort, mild tenderness left upper quadrant without rebound or guarding. WBC 20.3-Hgb 14-HCT 43-PLT 388-Ig percent 0.5-absolute neutrophil 17 point 3H Lactic acid 1.2. Sodium 131-K3.8-CL 95-CO2 29.0, glucose 133, otherwise CMP is within normal limits. Calcium 9.1. Liver panel: Total bili 1.10H-AST 180-ALT 95-ALP 126-total protein 8.3-Albumin three-point 3-5 and 50.0-lipase 74. 07/14/2021 CT abdomen pelvis: Dilated main and bilateral pulmonary arteries suggesting pulmonary hypertension, moderate volume right pleural effusion with compressive atelectasis at right lower lobe, moderate cardiomegaly with dilated right ventricle and reflux of contrast in IVC suggesting right heart dysfunction. Heterogenous enhancement and decreased density of the left kidney new since CTA on 01/03/2014- may represent renal ischemia/infarction versus pyelonephritis, neoplasm not ruled out. 2.9 superior and lateral left renal cyst with delayed peripheral nodular enhancement suspicious for cystic renal neoplasm, MRI/CT with IV contrast recommended. Splenic infarction, given left renal and splenic infarctions embolic etiology should be considered. Patient was given IV fluids due to tachycardia, patient's anticoagulants were held for thoracentesis, so there were concerns about possible pulmonary emboli, CT was therefore ordered with negative findings. Case was discussed with hospitalist and decision to admit Patient was admitted under Dr. Maddie Nascimento: Acute problem list and plan: 1. Acute hypoxic respiratory failure secondary right-sided pleural effusion with decompensated RV dysfunction, elevated leukocytosis with recent hospitalization could have concurrent pneumonia: We will check strep pneumo, Legionella antigens, flu, RSV, thoracentesis ordered with fluid studies, O2 as needed, continue aerosol, leukocytosis coverage ordered with IV antibiotics. 2. Splenic/renal infarct: Suspected to be related to subtherapeutic INR and atrial fibrillation, heparin drip was started, patient had prior complications with Xarelto, has been on Coumadin but consider trial of Eliquis as an alternative. Echocardiogram ordered. 3. Leukocytosis: Cultures were ordered, empiric antibiotics, lactic acid normal. 4. Recurrent right-sided pleural effusion: May be related to pulmonary artery hypertension, CT shows marked dilatation of central vasculature without PE, echocardiogram ordered. Started on Lasix drip. 5. Decompensated right-sided heart failure: Lasix drip started, follow BMP, sodium restriction, consider right-sided heart cath, pulmonary medicine consult. 6. Cystic renal mass: Concerning for malignancy, abdominal MRI ordered, consult urology 7. PAF: Current atrial fibrillation, heparin drip started, again echocardiogram ordered to check for embolic sources, diltiazem and metoprolol continued. 8. GERD: Continue omeprazole 9. DVT prophylaxis: Heparin drip CODE STATUS: DNR CCA without intubation 07/14/[address] Malika Jain neurologist: increasing left upper quadrant and flank pain, atypical left renal cyst. Assessment and plan: Right renal cyst, renal infarction: No plans for intervention of 3 cm suspicious lesion during this admission, felt he could be done outpatient. 07/15/2021 consultation open soaper tender Dr. Dwayne Garcia: Assessment right pleural effusion: Continue diuretic therapy, empiric antimicrobials, thoracentesis recommended, eventual right heart cath work and secondary work-up for pH outpatient basis. 07/15/2021 echocardiogram: LV size and LV SF WNL, EF 60 to 65%. RV normal size and RV SF EF. Left atrium moderately enlarged, right atrium mildly enlarged. MV: Moderate mitral annular calcification, 1-2+ MA. TV: Normal. AV: Diffuse aortic valve calcification. PV: Not well visualized. Great vessels and aortic root normal. No pericardial effusion. No significant changes from prior echo. 07/15/2021 MR abdomen with and without IV contrast: Large right pleural effusion, moderate cardiomegaly, distended inferior vena cava and hepatic veins indicative of right-sided heart failure. Scarring of spleen related to old ischemia trauma, multiple nonenhancing lesions in the left kidney identified with contrast which may be related to inflammatory or infectious process 07/16/2021: Ultrasound-guided thoracentesis Dr. Gary Reyes: 670 mL of blood-tinged cloudy fluid drained and sent for analysis Chest x-ray following: Status post right thoracentesis no evidence of hemothorax, residual blunting of right costophrenic angle. Pertinent lab summary: 07/14/2021 blood cultures x2 sites showed no growth over 5 days. Urine clean catch for Legionella and Streptococcus pneumonia both negative. Nasal swab for rapid RSV and influenza as well as SARS Covid-2 all negative. 07/22/2021 WBC 10.2-Hgb 12.1-HCT 37-PLT 338. Chemistries: NA 136-K4.3-CL 102-CO2 30-BUN 14-CRE 0.94-GLU 90 Discharge weight 59.1 kg, BMI 26.4 Hospital course: Hospital course: Noted to be hypoxic 88% on arrival, CT showed moderate right pleural effusion with compressive atelectasis. In addition patient was found to have left renal infarct as well as splenic infarcts which were considered to be embolic. Patient's INR was subtherapeutic on the arrival. Thoracentesis as above, cytology was negative for malignancy, concern possibly due to rheumatoid arthritis. Patient is to have follow-up with pulmonology and wants to transfer care to Dr. Mariee. She did develop atrial fib with rapid ventricular rate during the hospital course, which was treated temporarily with diltiazem drip, metoprolol was increased from 25 100 mg twice daily and amiodarone 200 mg twice daily was added with successful rate control. New medications: Discharge planning follow-up: Acute respiratory failure with hypoxia Acute exacerbation chronic pleural effusion Right splenic infarct Decompensated HFpEF Cystic renal mass Paroxysmal atrial fibrillation Leukocytosis Status post thoracentesis Mitral valve annular calcification, 1-2+ insufficiency stable Aortic valve diffuse calcification stable COPD Hypertension Subtherapeutic INR due to holding Coumadin for thoracentesis Medication reconciliation: Metoprolol tartrate 100 mg p.o. twice daily #60/0 Amiodarone 200 mg p.o. twice daily #60/0 Change medications: Warfarin 4 mg p.o. daily Discontinued medications: Warfarin 2 mg Metoprolol tartrate 75 mg p.o. twice daily Continue medications: Multivitamin 1 tablet daily Calcium carbonate 600 mg (1500 mg) tablet 1 p.o. daily Furosemide 40 mg p.o. twice daily Handicap placard Albuterol sulfate 90 MCG per actuation HFA inhaler: 2 puffs every 4 hours as needed shortness of breath Omeprazole 40 mg capsule daily AC Potassium chloride 20 mEq ER: 1 tablet twice daily Diltiazem 2040 mg capsule extended release 24-hour: 1 capsule daily Referral/follow-up: Dr. Flaquito Mariee pulmonology 2 weeks Thoracic aorta atherosclerosis 03/23/2020 0 09/23/2020 Chronic systolic heart failure 11/21/2019 0 09/23/2020 Fatigue 11/24/2016 10/10/2017 Atrial fibrillation 01/14/2014 10/10/2017 Multiple thyroid nodules 03/03/2011 021 Hypertension 01/19/2011 06/23/2015 Esophagitis, unspecified 01/13/2009 018 Gastrointestinal malfunction arising from mental factors 12/09/2008 10/10/2017 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 Dysphagia, unspecified(787.20) 1 07/09/2017 documented as of this encounter (statuses as of 07/28/2022) [facility] History of Past illness Narrative* Problem Noted Date Resolved Date Renal infarct 04/19/2022 07/26/2022 Overview: Has seen Dr. Chaney. Needs to just follow up prn. Pleural effusion 01/31/2022 04/19/2022 Encounter for support and coordination of transi tion of care 07/20/2021 07/26/2022 Overview: Facility: [facility] Date of admission 07/14/2021 Date of discharge Prehospital work-up: Presented to 07/14/2021 to [facility] ED complaining of left-sided abdominal pain with multiple symptoms including cough, myalgias, nasal congestion, low dietary intake due to concerns that would aggravate stomach ache. Patient was exposed to Covid 2 weeks prior, unvaccinated. Vital signs: 98.3 V-075-24-143/102-93% RA. Exam description: Tired, alert and nontoxic, normal respiratory effort, mild tenderness left upper quadrant without rebound or guarding. WBC 20.3-Hgb 14-HCT 43-PLT 388-Ig percent 0.5-absolute neutrophil 17 point 3H Lactic acid 1.2. Sodium 131-K3.8-CL 95-CO2 29.0, glucose 133, otherwise CMP is within normal limits. Calcium 9.1. Liver panel: Total bili 1.10H-AST 180-ALT 95-ALP 126-total protein 8.3-Albumin three-point 3-5 and 50.0-lipase 74. 07/14/2021 CT abdomen pelvis: Dilated main and bilateral pulmonary arteries suggesting pulmonary hypertension, moderate volume right pleural effusion with compressive atelectasis at right lower lobe, moderate cardiomegaly with dilated right ventricle and reflux of contrast in IVC suggesting right heart dysfunction. Heterogenous enhancement and decreased density of the left kidney new since CTA on 01/03/2014- may represent renal ischemia/infarction versus pyelonephritis, neoplasm not ruled out. 2.9 superior and lateral left renal cyst with delayed peripheral nodular enhancement suspicious for cystic renal neoplasm, MRI/CT with IV contrast recommended. Splenic infarction, given left renal and splenic infarctions embolic etiology should be considered. Patient was given IV fluids due to tachycardia, patient's anticoagulants were held for thoracentesis, so there were concerns about possible pulmonary emboli, CT was therefore ordered with negative findings. Case was discussed with hospitalist and decision to admit Patient was admitted under Dr. Maddie Nascimento: Acute problem list and plan: 1. Acute hypoxic respiratory failure secondary right-sided pleural effusion with decompensated RV dysfunction, elevated leukocytosis with recent hospitalization could have concurrent pneumonia: We will check strep pneumo, Legionella antigens, flu, RSV, thoracentesis ordered with fluid studies, O2 as needed, continue aerosol, leukocytosis coverage ordered with IV antibiotics. 2. Splenic/renal infarct: Suspected to be related to subtherapeutic INR and atrial fibrillation, heparin drip was started, patient had prior complications with Xarelto, has been on Coumadin but consider trial of Eliquis as an alternative. Echocardiogram ordered. 3. Leukocytosis: Cultures were ordered, empiric antibiotics, lactic acid normal. 4. Recurrent right-sided pleural effusion: May be related to pulmonary artery hypertension, CT shows marked dilatation of central vasculature without PE, echocardiogram ordered. Started on Lasix drip. 5. Decompensated right-sided heart failure: Lasix drip started, follow BMP, sodium restriction, consider right-sided heart cath, pulmonary medicine consult. 6. Cystic renal mass: Concerning for malignancy, abdominal MRI ordered, consult urology 7. PAF: Current atrial fibrillation, heparin drip started, again echocardiogram ordered to check for embolic sources, diltiazem and metoprolol continued. 8. GERD: Continue omeprazole 9. DVT prophylaxis: Heparin drip CODE STATUS: DNR CCA without intubation 07/14/[address] Malika Jain neurologist: increasing left upper quadrant and flank pain, atypical left renal cyst. Assessment and plan: Right renal cyst, renal infarction: No plans for intervention of 3 cm suspicious lesion during this admission, felt he could be done outpatient. 07/15/2021 consultation open soaper tender Dr. Dwayne Garcia: Assessment right pleural effusion: Continue diuretic therapy, empiric antimicrobials, thoracentesis recommended, eventual right heart cath work and secondary work-up for pH outpatient basis. 07/15/2021 echocardiogram: LV size and LV SF WNL, EF 60 to 65%. RV normal size and RV SF EF. Left atrium moderately enlarged, right atrium mildly enlarged. MV: Moderate mitral annular calcification, 1-2+ MA. TV: Normal. AV: Diffuse aortic valve calcification. PV: Not well visualized. Great vessels and aortic root normal. No pericardial effusion. No significant changes from prior echo. 07/15/2021 MR abdomen with and without IV contrast: Large right pleural effusion, moderate cardiomegaly, distended inferior vena cava and hepatic veins indicative of right-sided heart failure. Scarring of spleen related to old ischemia trauma, multiple nonenhancing lesions in the left kidney identified with contrast which may be related to inflammatory or infectious process 07/16/2021: Ultrasound-guided thoracentesis Dr. Gary Reyes: 670 mL of blood-tinged cloudy fluid drained and sent for analysis Chest x-ray following: Status post right thoracentesis no evidence of hemothorax, residual blunting of right costophrenic angle. Pertinent lab summary: 07/14/2021 blood cultures x2 sites showed no growth over 5 days. Urine clean catch for Legionella and Streptococcus pneumonia both negative. Nasal swab for rapid RSV and influenza as well as SARS Covid-2 all negative. 07/22/2021 WBC 10.2-Hgb 12.1-HCT 37-PLT 338. Chemistries: NA 136-K4.3-CL 102-CO2 30-BUN 14-CRE 0.94-GLU 90 Discharge weight 59.1 kg, BMI 26.4 Hospital course: Hospital course: Noted to be hypoxic 88% on arrival, CT showed moderate right pleural effusion with compressive atelectasis. In addition patient was found to have left renal infarct as well as splenic infarcts which were considered to be embolic. Patient's INR was subtherapeutic on the arrival. Thoracentesis as above, cytology was negative for malignancy, concern possibly due to rheumatoid arthritis. Patient is to have follow-up with pulmonology and wants to transfer care to Dr. Mariee. She did develop atrial fib with rapid ventricular rate during the hospital course, which was treated temporarily with diltiazem drip, metoprolol was increased from 25 100 mg twice daily and amiodarone 200 mg twice daily was added with successful rate control. New medications: Discharge planning follow-up: Acute respiratory failure with hypoxia Acute exacerbation chronic pleural effusion Right splenic infarct Decompensated HFpEF Cystic renal mass Paroxysmal atrial fibrillation Leukocytosis Status post thoracentesis Mitral valve annular calcification, 1-2+ insufficiency stable Aortic valve diffuse calcification stable COPD Hypertension Subtherapeutic INR due to holding Coumadin for thoracentesis Medication reconciliation: Metoprolol tartrate 100 mg p.o. twice daily #60/0 Amiodarone 200 mg p.o. twice daily #60/0 Change medications: Warfarin 4 mg p.o. daily Discontinued medications: Warfarin 2 mg Metoprolol tartrate 75 mg p.o. twice daily Continue medications: Multivitamin 1 tablet daily Calcium carbonate 600 mg (1500 mg) tablet 1 p.o. daily Furosemide 40 mg p.o. twice daily Handicap placard Albuterol sulfate 90 MCG per actuation HFA inhaler: 2 puffs every 4 hours as needed shortness of breath Omeprazole 40 mg capsule daily AC Potassium chloride 20 mEq ER: 1 tablet twice daily Diltiazem 2040 mg capsule extended release 24-hour: 1 capsule daily Referral/follow-up: Dr. Flaquito Mariee pulmonology 2 weeks Thoracic aorta atherosclerosis 03/23/2020 0 09/23/2020 Chronic systolic heart failure 11/21/2019 0 09/23/2020 Fatigue 11/24/2016 10/10/2017 Atrial fibrillation 01/14/2014 10/10/2017 Multiple thyroid nodules 03/03/2011 021 Hypertension 01/19/2011 06/23/2015 Esophagitis, unspecified 01/13/2009 018 Gastrointestinal malfunction arising from mental factors 12/09/2008 10/10/2017 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 Dysphagia, unspecified(787.20) 1 07/09/2017 documented as of this encounter (statuses as of 08/19/2022) [facility] History of Past illness Narrative* Problem Noted Date Resolved Date Renal infarct 04/19/2022 07/26/2022 Overview: Has seen Dr. Chaney. Needs to just follow up prn. Pleural effusion 01/31/2022 04/19/2022 Encounter for support and coordination of transi tion of care 07/20/2021 07/26/2022 Overview: Facility: [facility] Date of admission 07/14/2021 Date of discharge Prehospital work-up: Presented to 07/14/2021 to [facility] ED complaining of left-sided abdominal pain with multiple symptoms including cough, myalgias, nasal congestion, low dietary intake due to concerns that would aggravate stomach ache. Patient was exposed to Covid 2 weeks prior, unvaccinated. Vital signs: 98.3 L-683-92-143/102-93% RA. Exam description: Tired, alert and nontoxic, normal respiratory effort, mild tenderness left upper quadrant without rebound or guarding. WBC 20.3-Hgb 14-HCT 43-PLT 388-Ig percent 0.5-absolute neutrophil 17 point 3H Lactic acid 1.2. Sodium 131-K3.8-CL 95-CO2 29.0, glucose 133, otherwise CMP is within normal limits. Calcium 9.1. Liver panel: Total bili 1.10H-AST 180-ALT 95-ALP 126-total protein 8.3-Albumin three-point 3-5 and 50.0-lipase 74. 07/14/2021 CT abdomen pelvis: Dilated main and bilateral pulmonary arteries suggesting pulmonary hypertension, moderate volume right pleural effusion with compressive atelectasis at right lower lobe, moderate cardiomegaly with dilated right ventricle and reflux of contrast in IVC suggesting right heart dysfunction. Heterogenous enhancement and decreased density of the left kidney new since CTA on 01/03/2014- may represent renal ischemia/infarction versus pyelonephritis, neoplasm not ruled out. 2.9 superior and lateral left renal cyst with delayed peripheral nodular enhancement suspicious for cystic renal neoplasm, MRI/CT with IV contrast recommended. Splenic infarction, given left renal and splenic infarctions embolic etiology should be considered. Patient was given IV fluids due to tachycardia, patient's anticoagulants were held for thoracentesis, so there were concerns about possible pulmonary emboli, CT was therefore ordered with negative findings. Case was discussed with hospitalist and decision to admit Patient was admitted under Dr. Maddie Nascimento: Acute problem list and plan: 1. Acute hypoxic respiratory failure secondary right-sided pleural effusion with decompensated RV dysfunction, elevated leukocytosis with recent hospitalization could have concurrent pneumonia: We will check strep pneumo, Legionella antigens, flu, RSV, thoracentesis ordered with fluid studies, O2 as needed, continue aerosol, leukocytosis coverage ordered with IV antibiotics. 2. Splenic/renal infarct: Suspected to be related to subtherapeutic INR and atrial fibrillation, heparin drip was started, patient had prior complications with Xarelto, has been on Coumadin but consider trial of Eliquis as an alternative. Echocardiogram ordered. 3. Leukocytosis: Cultures were ordered, empiric antibiotics, lactic acid normal. 4. Recurrent right-sided pleural effusion: May be related to pulmonary artery hypertension, CT shows marked dilatation of central vasculature without PE, echocardiogram ordered. Started on Lasix drip. 5. Decompensated right-sided heart failure: Lasix drip started, follow BMP, sodium restriction, consider right-sided heart cath, pulmonary medicine consult. 6. Cystic renal mass: Concerning for malignancy, abdominal MRI ordered, consult urology 7. PAF: Current atrial fibrillation, heparin drip started, again echocardiogram ordered to check for embolic sources, diltiazem and metoprolol continued. 8. GERD: Continue omeprazole 9. DVT prophylaxis: Heparin drip CODE STATUS: DNR CCA without intubation 07/14/[address] Malika Jain neurologist: increasing left upper quadrant and flank pain, atypical left renal cyst. Assessment and plan: Right renal cyst, renal infarction: No plans for intervention of 3 cm suspicious lesion during this admission, felt he could be done outpatient. 07/15/2021 consultation open soaper tender Dr. Dwayne Garcia: Assessment right pleural effusion: Continue diuretic therapy, empiric antimicrobials, thoracentesis recommended, eventual right heart cath work and secondary work-up for pH outpatient basis. 07/15/2021 echocardiogram: LV size and LV SF WNL, EF 60 to 65%. RV normal size and RV SF EF. Left atrium moderately enlarged, right atrium mildly enlarged. MV: Moderate mitral annular calcification, 1-2+ MA. TV: Normal. AV: Diffuse aortic valve calcification. PV: Not well visualized. Great vessels and aortic root normal. No pericardial effusion. No significant changes from prior echo. 07/15/2021 MR abdomen with and without IV contrast: Large right pleural effusion, moderate cardiomegaly, distended inferior vena cava and hepatic veins indicative of right-sided heart failure. Scarring of spleen related to old ischemia trauma, multiple nonenhancing lesions in the left kidney identified with contrast which may be related to inflammatory or infectious process 07/16/2021: Ultrasound-guided thoracentesis Dr. Gary Reyes: 670 mL of blood-tinged cloudy fluid drained and sent for analysis Chest x-ray following: Status post right thoracentesis no evidence of hemothorax, residual blunting of right costophrenic angle. Pertinent lab summary: 07/14/2021 blood cultures x2 sites showed no growth over 5 days. Urine clean catch for Legionella and Streptococcus pneumonia both negative. Nasal swab for rapid RSV and influenza as well as SARS Covid-2 all negative. 07/22/2021 WBC 10.2-Hgb 12.1-HCT 37-PLT 338. Chemistries: NA 136-K4.3-CL 102-CO2 30-BUN 14-CRE 0.94-GLU 90 Discharge weight 59.1 kg, BMI 26.4 Hospital course: Hospital course: Noted to be hypoxic 88% on arrival, CT showed moderate right pleural effusion with compressive atelectasis. In addition patient was found to have left renal infarct as well as splenic infarcts which were considered to be embolic. Patient's INR was subtherapeutic on the arrival. Thoracentesis as above, cytology was negative for malignancy, concern possibly due to rheumatoid arthritis. Patient is to have follow-up with pulmonology and wants to transfer care to Dr. Mariee. She did develop atrial fib with rapid ventricular rate during the hospital course, which was treated temporarily with diltiazem drip, metoprolol was increased from 25 100 mg twice daily and amiodarone 200 mg twice daily was added with successful rate control. New medications: Discharge planning follow-up: Acute respiratory failure with hypoxia Acute exacerbation chronic pleural effusion Right splenic infarct Decompensated HFpEF Cystic renal mass Paroxysmal atrial fibrillation Leukocytosis Status post thoracentesis Mitral valve annular calcification, 1-2+ insufficiency stable Aortic valve diffuse calcification stable COPD Hypertension Subtherapeutic INR due to holding Coumadin for thoracentesis Medication reconciliation: Metoprolol tartrate 100 mg p.o. twice daily #60/0 Amiodarone 200 mg p.o. twice daily #60/0 Change medications: Warfarin 4 mg p.o. daily Discontinued medications: Warfarin 2 mg Metoprolol tartrate 75 mg p.o. twice daily Continue medications: Multivitamin 1 tablet daily Calcium carbonate 600 mg (1500 mg) tablet 1 p.o. daily Furosemide 40 mg p.o. twice daily Handicap placard Albuterol sulfate 90 MCG per actuation HFA inhaler: 2 puffs every 4 hours as needed shortness of breath Omeprazole 40 mg capsule daily AC Potassium chloride 20 mEq ER: 1 tablet twice daily Diltiazem 2040 mg capsule extended release 24-hour: 1 capsule daily Referral/follow-up: Dr. Flaquito Mariee pulmonology 2 weeks Thoracic aorta atherosclerosis 03/23/2020 0 09/23/2020 Chronic systolic heart failure 11/21/2019 0 09/23/2020 Fatigue 11/24/2016 10/10/2017 Atrial fibrillation 01/14/2014 10/10/2017 Multiple thyroid nodules 03/03/2011 021 Hypertension 01/19/2011 06/23/2015 Esophagitis, unspecified 01/13/2009 018 Gastrointestinal malfunction arising from mental factors 12/09/2008 10/10/2017 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 Dysphagia, unspecified(787.20) 1 07/09/2017 documented as of this encounter (statuses as of 08/23/2022) [facility]11-15-2022 History of Past illness Narrative* Problem Noted Date Resolved Date Renal infarct 04/19/2022 07/26/2022 Overview: Has seen Dr. Chaney. Needs to just follow up prn. Pleural effusion 01/31/2022 04/19/2022 Encounter for support and coordination of transi tion of care 07/20/2021 07/26/2022 Overview: Facility: [facility] Date of admission 07/14/2021 Date of discharge Prehospital work-up: Presented to 07/14/2021 to [facility] ED complaining of left-sided abdominal pain with multiple symptoms including cough, myalgias, nasal congestion, low dietary intake due to concerns that would aggravate stomach ache. Patient was exposed to Covid 2 weeks prior, unvaccinated. Vital signs: 98.3 V-[id number]/102-93% RA. Exam description: Tired, alert and nontoxic, normal respiratory effort, mild tenderness left upper quadrant without rebound or guarding. WBC 20.3-Hgb 14-HCT 43-PLT 388-Ig percent 0.5-absolute neutrophil 17 point 3H Lactic acid 1.2. Sodium 131-K3.8-CL 95-CO2 29.0, glucose 133, otherwise CMP is within normal limits. Calcium 9.1. Liver panel: Total bili 1.10H-AST 180-ALT 95-ALP 126-total protein 8.3-Albumin three-point 3-5 and 50.0-lipase 74. 07/14/2021 CT abdomen pelvis: Dilated main and bilateral pulmonary arteries suggesting pulmonary hypertension, moderate volume right pleural effusion with compressive atelectasis at right lower lobe, moderate cardiomegaly with dilated right ventricle and reflux of contrast in IVC suggesting right heart dysfunction. Heterogenous enhancement and decreased density of the left kidney new since CTA on 01/03/2014- may represent renal ischemia/infarction versus pyelonephritis, neoplasm not ruled out. 2.9 superior and lateral left renal cyst with delayed peripheral nodular enhancement suspicious for cystic renal neoplasm, MRI/CT with IV contrast recommended. Splenic infarction, given left renal and splenic infarctions embolic etiology should be considered. Patient was given IV fluids due to tachycardia, patient's anticoagulants were held for thoracentesis, so there were concerns about possible pulmonary emboli, CT was therefore ordered with negative findings. Case was discussed with hospitalist and decision to admit Patient was admitted under Dr. Maddie Nascimento: Acute problem list and plan: 1. Acute hypoxic respiratory failure secondary right-sided pleural effusion with decompensated RV dysfunction, elevated leukocytosis with recent hospitalization could have concurrent pneumonia: We will check strep pneumo, Legionella antigens, flu, RSV, thoracentesis ordered with fluid studies, O2 as needed, continue aerosol, leukocytosis coverage ordered with IV antibiotics. 2. Splenic/renal infarct: Suspected to be related to subtherapeutic INR and atrial fibrillation, heparin drip was started, patient had prior complications with Xarelto, has been on Coumadin but consider trial of Eliquis as an alternative. Echocardiogram ordered. 3. Leukocytosis: Cultures were ordered, empiric antibiotics, lactic acid normal. 4. Recurrent right-sided pleural effusion: May be related to pulmonary artery hypertension, CT shows marked dilatation of central vasculature without PE, echocardiogram ordered. Started on Lasix drip. 5. Decompensated right-sided heart failure: Lasix drip started, follow BMP, sodium restriction, consider right-sided heart cath, pulmonary medicine consult. 6. Cystic renal mass: Concerning for malignancy, abdominal MRI ordered, consult urology 7. PAF: Current atrial fibrillation, heparin drip started, again echocardiogram ordered to check for embolic sources, diltiazem and metoprolol continued. 8. GERD: Continue omeprazole 9. DVT prophylaxis: Heparin drip CODE STATUS: DNR CCA without intubation 07/14/[address] Malika Wyneski neurologist: increasing left upper quadrant and flank pain, atypical left renal cyst. Assessment and plan: Right renal cyst, renal infarction: No plans for intervention of 3 cm suspicious lesion during this admission, felt he could be done outpatient. 07/15/2021 consultation open soaper tender Dr. Dwayne Garcia: Assessment right pleural effusion: Continue diuretic therapy, empiric antimicrobials, thoracentesis recommended, eventual right heart cath work and secondary work-up for pH outpatient basis. 07/15/2021 echocardiogram: LV size and LV SF WNL, EF 60 to 65%. RV normal size and RV SF EF. Left atrium moderately enlarged, right atrium mildly enlarged. MV: Moderate mitral annular calcification, 1-2+ MA. TV: Normal. AV: Diffuse aortic valve calcification. PV: Not well visualized. Great vessels and aortic root normal. No pericardial effusion. No significant changes from prior echo. 07/15/2021 MR abdomen with and without IV contrast: Large right pleural effusion, moderate cardiomegaly, distended inferior vena cava and hepatic veins indicative of right-sided heart failure. Scarring of spleen related to old ischemia trauma, multiple nonenhancing lesions in the left kidney identified with contrast which may be related to inflammatory or infectious process 07/16/2021: Ultrasound-guided thoracentesis Dr. Gary Reyes: 670 mL of blood-tinged cloudy fluid drained and sent for analysis Chest x-ray following: Status post right thoracentesis no evidence of hemothorax, residual blunting of right costophrenic angle. Pertinent lab summary: 07/14/2021 blood cultures x2 sites showed no growth over 5 days. Urine clean catch for Legionella and Streptococcus pneumonia both negative. Nasal swab for rapid RSV and influenza as well as SARS Covid-2 all negative. 07/22/2021 WBC 10.2-Hgb 12.1-HCT 37-PLT 338. Chemistries: NA 136-K4.3-CL 102-CO2 30-BUN 14-CRE 0.94-GLU 90 Discharge weight 59.1 kg, BMI 26.4 Hospital course: Hospital course: Noted to be hypoxic 88% on arrival, CT showed moderate right pleural effusion with compressive atelectasis. In addition patient was found to have left renal infarct as well as splenic infarcts which were considered to be embolic. Patient's INR was subtherapeutic on the arrival. Thoracentesis as above, cytology was negative for malignancy, concern possibly due to rheumatoid arthritis. Patient is to have follow-up with pulmonology and wants to transfer care to Dr. Mariee. She did develop atrial fib with rapid ventricular rate during the hospital course, which was treated temporarily with diltiazem drip, metoprolol was increased from 25 100 mg twice daily and amiodarone 200 mg twice daily was added with successful rate control. New medications: Discharge planning follow-up: Acute respiratory failure with hypoxia Acute exacerbation chronic pleural effusion Right splenic infarct Decompensated HFpEF Cystic renal mass Paroxysmal atrial fibrillation Leukocytosis Status post thoracentesis Mitral valve annular calcification, 1-2+ insufficiency stable Aortic valve diffuse calcification stable COPD Hypertension Subtherapeutic INR due to holding Coumadin for thoracentesis Medication reconciliation: Metoprolol tartrate 100 mg p.o. twice daily #60/0 Amiodarone 200 mg p.o. twice daily #60/0 Change medications: Warfarin 4 mg p.o. daily Discontinued medications: Warfarin 2 mg Metoprolol tartrate 75 mg p.o. twice daily Continue medications: Multivitamin 1 tablet daily Calcium carbonate 600 mg (1500 mg) tablet 1 p.o. daily Furosemide 40 mg p.o. twice daily Handicap placard Albuterol sulfate 90 MCG per actuation HFA inhaler: 2 puffs every 4 hours as needed shortness of breath Omeprazole 40 mg capsule daily AC Potassium chloride 20 mEq ER: 1 tablet twice daily Diltiazem 2040 mg capsule extended release 24-hour: 1 capsule daily Referral/follow-up: Dr. Flaquito Mariee pulmonology 2 weeks Thoracic aorta atherosclerosis 03/23/2020 0 09/23/2020 Chronic systolic heart failure 11/21/2019 0 09/23/2020 Fatigue 11/24/2016 10/10/2017 Atrial fibrillation 01/14/2014 10/10/2017 Multiple thyroid nodules 03/03/2011 021 Hypertension 01/19/2011 06/23/2015 Esophagitis, unspecified 01/13/2009 018 Gastrointestinal malfunction arising from mental factors 12/09/2008 10/10/2017 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 Dysphagia, unspecified(787.20) 1 07/09/2017 documented as of this encounter (statuses as of 08/29/2022) [facility]11-15-2022 History of Past illness Narrative* Problem Noted Date Resolved Date Renal infarct 04/19/2022 07/26/2022 Overview: Has seen Dr. Chaney. Needs to just follow up prn. Pleural effusion 01/31/2022 04/19/2022 Encounter for support and coordination of transi tion of care 07/20/2021 07/26/2022 Overview: Facility: [facility] Date of admission 07/14/2021 Date of discharge Prehospital work-up: Presented to 07/14/2021 to [facility] ED complaining of left-sided abdominal pain with multiple symptoms including cough, myalgias, nasal congestion, low dietary intake due to concerns that would aggravate stomach ache. Patient was exposed to Covid 2 weeks prior, unvaccinated. Vital signs: 98.3 G-402-92-143/102-93% RA. Exam description: Tired, alert and nontoxic, normal respiratory effort, mild tenderness left upper quadrant without rebound or guarding. WBC 20.3-Hgb 14-HCT 43-PLT 388-Ig percent 0.5-absolute neutrophil 17 point 3H Lactic acid 1.2. Sodium 131-K3.8-CL 95-CO2 29.0, glucose 133, otherwise CMP is within normal limits. Calcium 9.1. Liver panel: Total bili 1.10H-AST 180-ALT 95-ALP 126-total protein 8.3-Albumin three-point 3-5 and 50.0-lipase 74. 07/14/2021 CT abdomen pelvis: Dilated main and bilateral pulmonary arteries suggesting pulmonary hypertension, moderate volume right pleural effusion with compressive atelectasis at right lower lobe, moderate cardiomegaly with dilated right ventricle and reflux of contrast in IVC suggesting right heart dysfunction. Heterogenous enhancement and decreased density of the left kidney new since CTA on 01/03/2014- may represent renal ischemia/infarction versus pyelonephritis, neoplasm not ruled out. 2.9 superior and lateral left renal cyst with delayed peripheral nodular enhancement suspicious for cystic renal neoplasm, MRI/CT with IV contrast recommended. Splenic infarction, given left renal and splenic infarctions embolic etiology should be considered. Patient was given IV fluids due to tachycardia, patient's anticoagulants were held for thoracentesis, so there were concerns about possible pulmonary emboli, CT was therefore ordered with negative findings. Case was discussed with hospitalist and decision to admit Patient was admitted under Dr. Maddie Nascimento: Acute problem list and plan: 1. Acute hypoxic respiratory failure secondary right-sided pleural effusion with decompensated RV dysfunction, elevated leukocytosis with recent hospitalization could have concurrent pneumonia: We will check strep pneumo, Legionella antigens, flu, RSV, thoracentesis ordered with fluid studies, O2 as needed, continue aerosol, leukocytosis coverage ordered with IV antibiotics. 2. Splenic/renal infarct: Suspected to be related to subtherapeutic INR and atrial fibrillation, heparin drip was started, patient had prior complications with Xarelto, has been on Coumadin but consider trial of Eliquis as an alternative. Echocardiogram ordered. 3. Leukocytosis: Cultures were ordered, empiric antibiotics, lactic acid normal. 4. Recurrent right-sided pleural effusion: May be related to pulmonary artery hypertension, CT shows marked dilatation of central vasculature without PE, echocardiogram ordered. Started on Lasix drip. 5. Decompensated right-sided heart failure: Lasix drip started, follow BMP, sodium restriction, consider right-sided heart cath, pulmonary medicine consult. 6. Cystic renal mass: Concerning for malignancy, abdominal MRI ordered, consult urology 7. PAF: Current atrial fibrillation, heparin drip started, again echocardiogram ordered to check for embolic sources, diltiazem and metoprolol continued. 8. GERD: Continue omeprazole 9. DVT prophylaxis: Heparin drip CODE STATUS: DNR CCA without intubation 07/14/[address] Malika Jain neurologist: increasing left upper quadrant and flank pain, atypical left renal cyst. Assessment and plan: Right renal cyst, renal infarction: No plans for intervention of 3 cm suspicious lesion during this admission, felt he could be done outpatient. 07/15/2021 consultation open soaper tender Dr. Dwayne Garcia: Assessment right pleural effusion: Continue diuretic therapy, empiric antimicrobials, thoracentesis recommended, eventual right heart cath work and secondary work-up for pH outpatient basis. 07/15/2021 echocardiogram: LV size and LV SF WNL, EF 60 to 65%. RV normal size and RV SF EF. Left atrium moderately enlarged, right atrium mildly enlarged. MV: Moderate mitral annular calcification, 1-2+ MA. TV: Normal. AV: Diffuse aortic valve calcification. PV: Not well visualized. Great vessels and aortic root normal. No pericardial effusion. No significant changes from prior echo. 07/15/2021 MR abdomen with and without IV contrast: Large right pleural effusion, moderate cardiomegaly, distended inferior vena cava and hepatic veins indicative of right-sided heart failure. Scarring of spleen related to old ischemia trauma, multiple nonenhancing lesions in the left kidney identified with contrast which may be related to inflammatory or infectious process 07/16/2021: Ultrasound-guided thoracentesis Dr. Gary Reyes: 670 mL of blood-tinged cloudy fluid drained and sent for analysis Chest x-ray following: Status post right thoracentesis no evidence of hemothorax, residual blunting of right costophrenic angle. Pertinent lab summary: 07/14/2021 blood cultures x2 sites showed no growth over 5 days. Urine clean catch for Legionella and Streptococcus pneumonia both negative. Nasal swab for rapid RSV and influenza as well as SARS Covid-2 all negative. 07/22/2021 WBC 10.2-Hgb 12.1-HCT 37-PLT 338. Chemistries: NA 136-K4.3-CL 102-CO2 30-BUN 14-CRE 0.94-GLU 90 Discharge weight 59.1 kg, BMI 26.4 Hospital course: Hospital course: Noted to be hypoxic 88% on arrival, CT showed moderate right pleural effusion with compressive atelectasis. In addition patient was found to have left renal infarct as well as splenic infarcts which were considered to be embolic. Patient's INR was subtherapeutic on the arrival. Thoracentesis as above, cytology was negative for malignancy, concern possibly due to rheumatoid arthritis. Patient is to have follow-up with pulmonology and wants to transfer care to Dr. Mariee. She did develop atrial fib with rapid ventricular rate during the hospital course, which was treated temporarily with diltiazem drip, metoprolol was increased from 25 100 mg twice daily and amiodarone 200 mg twice daily was added with successful rate control. New medications: Discharge planning follow-up: Acute respiratory failure with hypoxia Acute exacerbation chronic pleural effusion Right splenic infarct Decompensated HFpEF Cystic renal mass Paroxysmal atrial fibrillation Leukocytosis Status post thoracentesis Mitral valve annular calcification, 1-2+ insufficiency stable Aortic valve diffuse calcification stable COPD Hypertension Subtherapeutic INR due to holding Coumadin for thoracentesis Medication reconciliation: Metoprolol tartrate 100 mg p.o. twice daily #60/0 Amiodarone 200 mg p.o. twice daily #60/0 Change medications: Warfarin 4 mg p.o. daily Discontinued medications: Warfarin 2 mg Metoprolol tartrate 75 mg p.o. twice daily Continue medications: Multivitamin 1 tablet daily Calcium carbonate 600 mg (1500 mg) tablet 1 p.o. daily Furosemide 40 mg p.o. twice daily Handicap placard Albuterol sulfate 90 MCG per actuation HFA inhaler: 2 puffs every 4 hours as needed shortness of breath Omeprazole 40 mg capsule daily AC Potassium chloride 20 mEq ER: 1 tablet twice daily Diltiazem 2040 mg capsule extended release 24-hour: 1 capsule daily Referral/follow-up: Dr. Flaquito Mariee pulmonology 2 weeks Thoracic aorta atherosclerosis 03/23/2020 0 09/23/2020 Chronic systolic heart failure 11/21/2019 0 09/23/2020 Fatigue 11/24/2016 10/10/2017 Atrial fibrillation 01/14/2014 10/10/2017 Multiple thyroid nodules 03/03/2011 021 Hypertension 01/19/2011 06/23/2015 Esophagitis, unspecified 01/13/2009 018 Gastrointestinal malfunction arising from mental factors 12/09/2008 10/10/2017 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 Dysphagia, unspecified(787.20) 1 07/09/2017 documented as of this encounter (statuses as of 09/01/2022) [facility]11-15-2022 History of Past illness Narrative* Problem Noted Date Resolved Date Renal infarct 04/19/2022 07/26/2022 Overview: Has seen Dr. Chaney. Needs to just follow up prn. Pleural effusion 01/31/2022 04/19/2022 Encounter for support and coordination of transi tion of care 07/20/2021 07/26/2022 Overview: Facility: [facility] Date of admission 07/14/2021 Date of discharge Prehospital work-up: Presented to 07/14/2021 to [facility] ED complaining of left-sided abdominal pain with multiple symptoms including cough, myalgias, nasal congestion, low dietary intake due to concerns that would aggravate stomach ache. Patient was exposed to Covid 2 weeks prior, unvaccinated. Vital signs: 98.3 [id number]/102-93% RA. Exam description: Tired, alert and nontoxic, normal respiratory effort, mild tenderness left upper quadrant without rebound or guarding. WBC 20.3-Hgb 14-HCT 43-PLT 388-Ig percent 0.5-absolute neutrophil 17 point 3H Lactic acid 1.2. Sodium 131-K3.8-CL 95-CO2 29.0, glucose 133, otherwise CMP is within normal limits. Calcium 9.1. Liver panel: Total bili 1.10H-AST 180-ALT 95-ALP 126-total protein 8.3-Albumin three-point 3-5 and 50.0-lipase 74. 07/14/2021 CT abdomen pelvis: Dilated main and bilateral pulmonary arteries suggesting pulmonary hypertension, moderate volume right pleural effusion with compressive atelectasis at right lower lobe, moderate cardiomegaly with dilated right ventricle and reflux of contrast in IVC suggesting right heart dysfunction. Heterogenous enhancement and decreased density of the left kidney new since CTA on 01/03/2014- may represent renal ischemia/infarction versus pyelonephritis, neoplasm not ruled out. 2.9 superior and lateral left renal cyst with delayed peripheral nodular enhancement suspicious for cystic renal neoplasm, MRI/CT with IV contrast recommended. Splenic infarction, given left renal and splenic infarctions embolic etiology should be considered. Patient was given IV fluids due to tachycardia, patient's anticoagulants were held for thoracentesis, so there were concerns about possible pulmonary emboli, CT was therefore ordered with negative findings. Case was discussed with hospitalist and decision to admit Patient was admitted under Dr. Maddie Nascimento: Acute problem list and plan: 1. Acute hypoxic respiratory failure secondary right-sided pleural effusion with decompensated RV dysfunction, elevated leukocytosis with recent hospitalization could have concurrent pneumonia: We will check strep pneumo, Legionella antigens, flu, RSV, thoracentesis ordered with fluid studies, O2 as needed, continue aerosol, leukocytosis coverage ordered with IV antibiotics. 2. Splenic/renal infarct: Suspected to be related to subtherapeutic INR and atrial fibrillation, heparin drip was started, patient had prior complications with Xarelto, has been on Coumadin but consider trial of Eliquis as an alternative. Echocardiogram ordered. 3. Leukocytosis: Cultures were ordered, empiric antibiotics, lactic acid normal. 4. Recurrent right-sided pleural effusion: May be related to pulmonary artery hypertension, CT shows marked dilatation of central vasculature without PE, echocardiogram ordered. Started on Lasix drip. 5. Decompensated right-sided heart failure: Lasix drip started, follow BMP, sodium restriction, consider right-sided heart cath, pulmonary medicine consult. 6. Cystic renal mass: Concerning for malignancy, abdominal MRI ordered, consult urology 7. PAF: Current atrial fibrillation, heparin drip started, again echocardiogram ordered to check for embolic sources, diltiazem and metoprolol continued. 8. GERD: Continue omeprazole 9. DVT prophylaxis: Heparin drip CODE STATUS: DNR CCA without intubation 07/14/[address] Malika Jain neurologist: increasing left upper quadrant and flank pain, atypical left renal cyst. Assessment and plan: Right renal cyst, renal infarction: No plans for intervention of 3 cm suspicious lesion during this admission, felt he could be done outpatient. 07/15/2021 consultation open soaper tender Dr. Dwayne Garcia: Assessment right pleural effusion: Continue diuretic therapy, empiric antimicrobials, thoracentesis recommended, eventual right heart cath work and secondary work-up for pH outpatient basis. 07/15/2021 echocardiogram: LV size and LV SF WNL, EF 60 to 65%. RV normal size and RV SF EF. Left atrium moderately enlarged, right atrium mildly enlarged. MV: Moderate mitral annular calcification, 1-2+ MA. TV: Normal. AV: Diffuse aortic valve calcification. PV: Not well visualized. Great vessels and aortic root normal. No pericardial effusion. No significant changes from prior echo. 07/15/2021 MR abdomen with and without IV contrast: Large right pleural effusion, moderate cardiomegaly, distended inferior vena cava and hepatic veins indicative of right-sided heart failure. Scarring of spleen related to old ischemia trauma, multiple nonenhancing lesions in the left kidney identified with contrast which may be related to inflammatory or infectious process 07/16/2021: Ultrasound-guided thoracentesis Dr. Gary Reyes: 670 mL of blood-tinged cloudy fluid drained and sent for analysis Chest x-ray following: Status post right thoracentesis no evidence of hemothorax, residual blunting of right costophrenic angle. Pertinent lab summary: 07/14/2021 blood cultures x2 sites showed no growth over 5 days. Urine clean catch for Legionella and Streptococcus pneumonia both negative. Nasal swab for rapid RSV and influenza as well as SARS Covid-2 all negative. 07/22/2021 WBC 10.2-Hgb 12.1-HCT 37-PLT 338. Chemistries: NA 136-K4.3-CL 102-CO2 30-BUN 14-CRE 0.94-GLU 90 Discharge weight 59.1 kg, BMI 26.4 Hospital course: Hospital course: Noted to be hypoxic 88% on arrival, CT showed moderate right pleural effusion with compressive atelectasis. In addition patient was found to have left renal infarct as well as splenic infarcts which were considered to be embolic. Patient's INR was subtherapeutic on the arrival. Thoracentesis as above, cytology was negative for malignancy, concern possibly due to rheumatoid arthritis. Patient is to have follow-up with pulmonology and wants to transfer care to Dr. Mariee. She did develop atrial fib with rapid ventricular rate during the hospital course, which was treated temporarily with diltiazem drip, metoprolol was increased from 25 100 mg twice daily and amiodarone 200 mg twice daily was added with successful rate control. New medications: Discharge planning follow-up: Acute respiratory failure with hypoxia Acute exacerbation chronic pleural effusion Right splenic infarct Decompensated HFpEF Cystic renal mass Paroxysmal atrial fibrillation Leukocytosis Status post thoracentesis Mitral valve annular calcification, 1-2+ insufficiency stable Aortic valve diffuse calcification stable COPD Hypertension Subtherapeutic INR due to holding Coumadin for thoracentesis Medication reconciliation: Metoprolol tartrate 100 mg p.o. twice daily #60/0 Amiodarone 200 mg p.o. twice daily #60/0 Change medications: Warfarin 4 mg p.o. daily Discontinued medications: Warfarin 2 mg Metoprolol tartrate 75 mg p.o. twice daily Continue medications: Multivitamin 1 tablet daily Calcium carbonate 600 mg (1500 mg) tablet 1 p.o. daily Furosemide 40 mg p.o. twice daily Handicap placard Albuterol sulfate 90 MCG per actuation HFA inhaler: 2 puffs every 4 hours as needed shortness of breath Omeprazole 40 mg capsule daily AC Potassium chloride 20 mEq ER: 1 tablet twice daily Diltiazem 2040 mg capsule extended release 24-hour: 1 capsule daily Referral/follow-up: Dr. Flaquito Mariee pulmonology 2 weeks Thoracic aorta atherosclerosis 03/23/2020 0 09/23/2020 Chronic systolic heart failure 11/21/2019 0 09/23/2020 Fatigue 11/24/2016 10/10/2017 Atrial fibrillation 01/14/2014 10/10/2017 Multiple thyroid nodules 03/03/2011 021 Hypertension 01/19/2011 06/23/2015 Esophagitis, unspecified 01/13/2009 018 Gastrointestinal malfunction arising from mental factors 12/09/2008 10/10/2017 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 Dysphagia, unspecified(787.20) 1 07/09/2017 documented as of this encounter (statuses as of 09/19/2022) [facility]11-15-2022 History of Past illness Narrative* Problem Noted Date Resolved Date Renal infarct 04/19/2022 07/26/2022 Overview: Has seen Dr. Chaney. Needs to just follow up prn. Pleural effusion 01/31/2022 04/19/2022 Encounter for support and coordination of transi tion of care 07/20/2021 07/26/2022 Overview: Facility: [facility] Date of admission 07/14/2021 Date of discharge Prehospital work-up: Presented to 07/14/2021 to [facility] ED complaining of left-sided abdominal pain with multiple symptoms including cough, myalgias, nasal congestion, low dietary intake due to concerns that would aggravate stomach ache. Patient was exposed to Covid 2 weeks prior, unvaccinated. Vital signs: 98.3 [id number]/102-93% RA. Exam description: Tired, alert and nontoxic, normal respiratory effort, mild tenderness left upper quadrant without rebound or guarding. WBC 20.3-Hgb 14-HCT 43-PLT 388-Ig percent 0.5-absolute neutrophil 17 point 3H Lactic acid 1.2. Sodium 131-K3.8-CL 95-CO2 29.0, glucose 133, otherwise CMP is within normal limits. Calcium 9.1. Liver panel: Total bili 1.10H-AST 180-ALT 95-ALP 126-total protein 8.3-Albumin three-point 3-5 and 50.0-lipase 74. 07/14/2021 CT abdomen pelvis: Dilated main and bilateral pulmonary arteries suggesting pulmonary hypertension, moderate volume right pleural effusion with compressive atelectasis at right lower lobe, moderate cardiomegaly with dilated right ventricle and reflux of contrast in IVC suggesting right heart dysfunction. Heterogenous enhancement and decreased density of the left kidney new since CTA on 01/03/2014- may represent renal ischemia/infarction versus pyelonephritis, neoplasm not ruled out. 2.9 superior and lateral left renal cyst with delayed peripheral nodular enhancement suspicious for cystic renal neoplasm, MRI/CT with IV contrast recommended. Splenic infarction, given left renal and splenic infarctions embolic etiology should be considered. Patient was given IV fluids due to tachycardia, patient's anticoagulants were held for thoracentesis, so there were concerns about possible pulmonary emboli, CT was therefore ordered with negative findings. Case was discussed with hospitalist and decision to admit Patient was admitted under Dr. Maddie Nascimento: Acute problem list and plan: 1. Acute hypoxic respiratory failure secondary right-sided pleural effusion with decompensated RV dysfunction, elevated leukocytosis with recent hospitalization could have concurrent pneumonia: We will check strep pneumo, Legionella antigens, flu, RSV, thoracentesis ordered with fluid studies, O2 as needed, continue aerosol, leukocytosis coverage ordered with IV antibiotics. 2. Splenic/renal infarct: Suspected to be related to subtherapeutic INR and atrial fibrillation, heparin drip was started, patient had prior complications with Xarelto, has been on Coumadin but consider trial of Eliquis as an alternative. Echocardiogram ordered. 3. Leukocytosis: Cultures were ordered, empiric antibiotics, lactic acid normal. 4. Recurrent right-sided pleural effusion: May be related to pulmonary artery hypertension, CT shows marked dilatation of central vasculature without PE, echocardiogram ordered. Started on Lasix drip. 5. Decompensated right-sided heart failure: Lasix drip started, follow BMP, sodium restriction, consider right-sided heart cath, pulmonary medicine consult. 6. Cystic renal mass: Concerning for malignancy, abdominal MRI ordered, consult urology 7. PAF: Current atrial fibrillation, heparin drip started, again echocardiogram ordered to check for embolic sources, diltiazem and metoprolol continued. 8. GERD: Continue omeprazole 9. DVT prophylaxis: Heparin drip CODE STATUS: DNR CCA without intubation 07/14/[address] Malika Jain neurologist: increasing left upper quadrant and flank pain, atypical left renal cyst. Assessment and plan: Right renal cyst, renal infarction: No plans for intervention of 3 cm suspicious lesion during this admission, felt he could be done outpatient. 07/15/2021 consultation open soaper tender Dr. Dwayne Garcia: Assessment right pleural effusion: Continue diuretic therapy, empiric antimicrobials, thoracentesis recommended, eventual right heart cath work and secondary work-up for pH outpatient basis. 07/15/2021 echocardiogram: LV size and LV SF WNL, EF 60 to 65%. RV normal size and RV SF EF. Left atrium moderately enlarged, right atrium mildly enlarged. MV: Moderate mitral annular calcification, 1-2+ MA. TV: Normal. AV: Diffuse aortic valve calcification. PV: Not well visualized. Great vessels and aortic root normal. No pericardial effusion. No significant changes from prior echo. 07/15/2021 MR abdomen with and without IV contrast: Large right pleural effusion, moderate cardiomegaly, distended inferior vena cava and hepatic veins indicative of right-sided heart failure. Scarring of spleen related to old ischemia trauma, multiple nonenhancing lesions in the left kidney identified with contrast which may be related to inflammatory or infectious process 07/16/2021: Ultrasound-guided thoracentesis Dr. Gary Reyes: 670 mL of blood-tinged cloudy fluid drained and sent for analysis Chest x-ray following: Status post right thoracentesis no evidence of hemothorax, residual blunting of right costophrenic angle. Pertinent lab summary: 07/14/2021 blood cultures x2 sites showed no growth over 5 days. Urine clean catch for Legionella and Streptococcus pneumonia both negative. Nasal swab for rapid RSV and influenza as well as SARS Covid-2 all negative. 07/22/2021 WBC 10.2-Hgb 12.1-HCT 37-PLT 338. Chemistries: NA 136-K4.3-CL 102-CO2 30-BUN 14-CRE 0.94-GLU 90 Discharge weight 59.1 kg, BMI 26.4 Hospital course: Hospital course: Noted to be hypoxic 88% on arrival, CT showed moderate right pleural effusion with compressive atelectasis. In addition patient was found to have left renal infarct as well as splenic infarcts which were considered to be embolic. Patient's INR was subtherapeutic on the arrival. Thoracentesis as above, cytology was negative for malignancy, concern possibly due to rheumatoid arthritis. Patient is to have follow-up with pulmonology and wants to transfer care to Dr. Mariee. She did develop atrial fib with rapid ventricular rate during the hospital course, which was treated temporarily with diltiazem drip, metoprolol was increased from 25 100 mg twice daily and amiodarone 200 mg twice daily was added with successful rate control. New medications: Discharge planning follow-up: Acute respiratory failure with hypoxia Acute exacerbation chronic pleural effusion Right splenic infarct Decompensated HFpEF Cystic renal mass Paroxysmal atrial fibrillation Leukocytosis Status post thoracentesis Mitral valve annular calcification, 1-2+ insufficiency stable Aortic valve diffuse calcification stable COPD Hypertension Subtherapeutic INR due to holding Coumadin for thoracentesis Medication reconciliation: Metoprolol tartrate 100 mg p.o. twice daily #60/0 Amiodarone 200 mg p.o. twice daily #60/0 Change medications: Warfarin 4 mg p.o. daily Discontinued medications: Warfarin 2 mg Metoprolol tartrate 75 mg p.o. twice daily Continue medications: Multivitamin 1 tablet daily Calcium carbonate 600 mg (1500 mg) tablet 1 p.o. daily Furosemide 40 mg p.o. twice daily Handicap placard Albuterol sulfate 90 MCG per actuation HFA inhaler: 2 puffs every 4 hours as needed shortness of breath Omeprazole 40 mg capsule daily AC Potassium chloride 20 mEq ER: 1 tablet twice daily Diltiazem 2040 mg capsule extended release 24-hour: 1 capsule daily Referral/follow-up: Dr. Flaquito Mariee pulmonology 2 weeks Thoracic aorta atherosclerosis 03/23/2020 0 09/23/2020 Chronic systolic heart failure 11/21/2019 0 09/23/2020 Fatigue 11/24/2016 10/10/2017 Atrial fibrillation 01/14/2014 10/10/2017 Multiple thyroid nodules 03/03/2011 021 Hypertension 01/19/2011 06/23/2015 Esophagitis, unspecified 01/13/2009 018 Gastrointestinal malfunction arising from mental factors 12/09/2008 10/10/2017 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 Dysphagia, unspecified(787.20) 1 07/09/2017 documented as of this encounter (statuses as of 09/22/2022) [facility]11-15-2022 History of Past illness Narrative* Problem Noted Date Resolved Date Renal infarct 04/19/2022 07/26/2022 Overview: Has seen Dr. Chaney. Needs to just follow up prn. Pleural effusion 01/31/2022 04/19/2022 Encounter for support and coordination of transi tion of care 07/20/2021 07/26/2022 Overview: Facility: [facility] Date of admission 07/14/2021 Date of discharge Prehospital work-up: Presented to 07/14/2021 to [facility] ED complaining of left-sided abdominal pain with multiple symptoms including cough, myalgias, nasal congestion, low dietary intake due to concerns that would aggravate stomach ache. Patient was exposed to Covid 2 weeks prior, unvaccinated. Vital signs: 98.3 D-025-60-143/102-93% RA. Exam description: Tired, alert and nontoxic, normal respiratory effort, mild tenderness left upper quadrant without rebound or guarding. WBC 20.3-Hgb 14-HCT 43-PLT 388-Ig percent 0.5-absolute neutrophil 17 point 3H Lactic acid 1.2. Sodium 131-K3.8-CL 95-CO2 29.0, glucose 133, otherwise CMP is within normal limits. Calcium 9.1. Liver panel: Total bili 1.10H-AST 180-ALT 95-ALP 126-total protein 8.3-Albumin three-point 3-5 and 50.0-lipase 74. 07/14/2021 CT abdomen pelvis: Dilated main and bilateral pulmonary arteries suggesting pulmonary hypertension, moderate volume right pleural effusion with compressive atelectasis at right lower lobe, moderate cardiomegaly with dilated right ventricle and reflux of contrast in IVC suggesting right heart dysfunction. Heterogenous enhancement and decreased density of the left kidney new since CTA on 01/03/2014- may represent renal ischemia/infarction versus pyelonephritis, neoplasm not ruled out. 2.9 superior and lateral left renal cyst with delayed peripheral nodular enhancement suspicious for cystic renal neoplasm, MRI/CT with IV contrast recommended. Splenic infarction, given left renal and splenic infarctions embolic etiology should be considered. Patient was given IV fluids due to tachycardia, patient's anticoagulants were held for thoracentesis, so there were concerns about possible pulmonary emboli, CT was therefore ordered with negative findings. Case was discussed with hospitalist and decision to admit Patient was admitted under Dr. Maddie Nascimento: Acute problem list and plan: 1. Acute hypoxic respiratory failure secondary right-sided pleural effusion with decompensated RV dysfunction, elevated leukocytosis with recent hospitalization could have concurrent pneumonia: We will check strep pneumo, Legionella antigens, flu, RSV, thoracentesis ordered with fluid studies, O2 as needed, continue aerosol, leukocytosis coverage ordered with IV antibiotics. 2. Splenic/renal infarct: Suspected to be related to subtherapeutic INR and atrial fibrillation, heparin drip was started, patient had prior complications with Xarelto, has been on Coumadin but consider trial of Eliquis as an alternative. Echocardiogram ordered. 3. Leukocytosis: Cultures were ordered, empiric antibiotics, lactic acid normal. 4. Recurrent right-sided pleural effusion: May be related to pulmonary artery hypertension, CT shows marked dilatation of central vasculature without PE, echocardiogram ordered. Started on Lasix drip. 5. Decompensated right-sided heart failure: Lasix drip started, follow BMP, sodium restriction, consider right-sided heart cath, pulmonary medicine consult. 6. Cystic renal mass: Concerning for malignancy, abdominal MRI ordered, consult urology 7. PAF: Current atrial fibrillation, heparin drip started, again echocardiogram ordered to check for embolic sources, diltiazem and metoprolol continued. 8. GERD: Continue omeprazole 9. DVT prophylaxis: Heparin drip CODE STATUS: DNR CCA without intubation 07/14/[address] Malika Jain neurologist: increasing left upper quadrant and flank pain, atypical left renal cyst. Assessment and plan: Right renal cyst, renal infarction: No plans for intervention of 3 cm suspicious lesion during this admission, felt he could be done outpatient. 07/15/2021 consultation open soaper tender Dr. Dwayne Garcia: Assessment right pleural effusion: Continue diuretic therapy, empiric antimicrobials, thoracentesis recommended, eventual right heart cath work and secondary work-up for pH outpatient basis. 07/15/2021 echocardiogram: LV size and LV SF WNL, EF 60 to 65%. RV normal size and RV SF EF. Left atrium moderately enlarged, right atrium mildly enlarged. MV: Moderate mitral annular calcification, 1-2+ MA. TV: Normal. AV: Diffuse aortic valve calcification. PV: Not well visualized. Great vessels and aortic root normal. No pericardial effusion. No significant changes from prior echo. 07/15/2021 MR abdomen with and without IV contrast: Large right pleural effusion, moderate cardiomegaly, distended inferior vena cava and hepatic veins indicative of right-sided heart failure. Scarring of spleen related to old ischemia trauma, multiple nonenhancing lesions in the left kidney identified with contrast which may be related to inflammatory or infectious process 07/16/2021: Ultrasound-guided thoracentesis Dr. Gary Reyes: 670 mL of blood-tinged cloudy fluid drained and sent for analysis Chest x-ray following: Status post right thoracentesis no evidence of hemothorax, residual blunting of right costophrenic angle. Pertinent lab summary: 07/14/2021 blood cultures x2 sites showed no growth over 5 days. Urine clean catch for Legionella and Streptococcus pneumonia both negative. Nasal swab for rapid RSV and influenza as well as SARS Covid-2 all negative. 07/22/2021 WBC 10.2-Hgb 12.1-HCT 37-PLT 338. Chemistries: NA 136-K4.3-CL 102-CO2 30-BUN 14-CRE 0.94-GLU 90 Discharge weight 59.1 kg, BMI 26.4 Hospital course: Hospital course: Noted to be hypoxic 88% on arrival, CT showed moderate right pleural effusion with compressive atelectasis. In addition patient was found to have left renal infarct as well as splenic infarcts which were considered to be embolic. Patient's INR was subtherapeutic on the arrival. Thoracentesis as above, cytology was negative for malignancy, concern possibly due to rheumatoid arthritis. Patient is to have follow-up with pulmonology and wants to transfer care to Dr. Mariee. She did develop atrial fib with rapid ventricular rate during the hospital course, which was treated temporarily with diltiazem drip, metoprolol was increased from 25 100 mg twice daily and amiodarone 200 mg twice daily was added with successful rate control. New medications: Discharge planning follow-up: Acute respiratory failure with hypoxia Acute exacerbation chronic pleural effusion Right splenic infarct Decompensated HFpEF Cystic renal mass Paroxysmal atrial fibrillation Leukocytosis Status post thoracentesis Mitral valve annular calcification, 1-2+ insufficiency stable Aortic valve diffuse calcification stable COPD Hypertension Subtherapeutic INR due to holding Coumadin for thoracentesis Medication reconciliation: Metoprolol tartrate 100 mg p.o. twice daily #60/0 Amiodarone 200 mg p.o. twice daily #60/0 Change medications: Warfarin 4 mg p.o. daily Discontinued medications: Warfarin 2 mg Metoprolol tartrate 75 mg p.o. twice daily Continue medications: Multivitamin 1 tablet daily Calcium carbonate 600 mg (1500 mg) tablet 1 p.o. daily Furosemide 40 mg p.o. twice daily Handicap placard Albuterol sulfate 90 MCG per actuation HFA inhaler: 2 puffs every 4 hours as needed shortness of breath Omeprazole 40 mg capsule daily AC Potassium chloride 20 mEq ER: 1 tablet twice daily Diltiazem 2040 mg capsule extended release 24-hour: 1 capsule daily Referral/follow-up: Dr. Flaquito Mariee pulmonology 2 weeks Thoracic aorta atherosclerosis 03/23/2020 0 09/23/2020 Chronic systolic heart failure 11/21/2019 0 09/23/2020 Fatigue 11/24/2016 10/10/2017 Atrial fibrillation 01/14/2014 10/10/2017 Multiple thyroid nodules 03/03/2011 021 Hypertension 01/19/2011 06/23/2015 Esophagitis, unspecified 01/13/2009 018 Gastrointestinal malfunction arising from mental factors 12/09/2008 10/10/2017 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 Dysphagia, unspecified(787.20) 1 07/09/2017 documented as of this encounter (statuses as of 09/22/2022) [facility]11-15-2022 History of Past illness Narrative* Problem Noted Date Resolved Date Renal infarct 04/19/2022 07/26/2022 Overview: Has seen Dr. Chaney. Needs to just follow up prn. Pleural effusion 01/31/2022 04/19/2022 Encounter for support and coordination of transi tion of care 07/20/2021 07/26/2022 Overview: Facility: [facility] Date of admission 07/14/2021 Date of discharge Prehospital work-up: Presented to 07/14/2021 to [facility] ED complaining of left-sided abdominal pain with multiple symptoms including cough, myalgias, nasal congestion, low dietary intake due to concerns that would aggravate stomach ache. Patient was exposed to Covid 2 weeks prior, unvaccinated. Vital signs: 98.3 [id number]/102-93% RA. Exam description: Tired, alert and nontoxic, normal respiratory effort, mild tenderness left upper quadrant without rebound or guarding. WBC 20.3-Hgb 14-HCT 43-PLT 388-Ig percent 0.5-absolute neutrophil 17 point 3H Lactic acid 1.2. Sodium 131-K3.8-CL 95-CO2 29.0, glucose 133, otherwise CMP is within normal limits. Calcium 9.1. Liver panel: Total bili 1.10H-AST 180-ALT 95-ALP 126-total protein 8.3-Albumin three-point 3-5 and 50.0-lipase 74. 07/14/2021 CT abdomen pelvis: Dilated main and bilateral pulmonary arteries suggesting pulmonary hypertension, moderate volume right pleural effusion with compressive atelectasis at right lower lobe, moderate cardiomegaly with dilated right ventricle and reflux of contrast in IVC suggesting right heart dysfunction. Heterogenous enhancement and decreased density of the left kidney new since CTA on 01/03/2014- may represent renal ischemia/infarction versus pyelonephritis, neoplasm not ruled out. 2.9 superior and lateral left renal cyst with delayed peripheral nodular enhancement suspicious for cystic renal neoplasm, MRI/CT with IV contrast recommended. Splenic infarction, given left renal and splenic infarctions embolic etiology should be considered. Patient was given IV fluids due to tachycardia, patient's anticoagulants were held for thoracentesis, so there were concerns about possible pulmonary emboli, CT was therefore ordered with negative findings. Case was discussed with hospitalist and decision to admit Patient was admitted under Dr. Maddie Nascimento: Acute problem list and plan: 1. Acute hypoxic respiratory failure secondary right-sided pleural effusion with decompensated RV dysfunction, elevated leukocytosis with recent hospitalization could have concurrent pneumonia: We will check strep pneumo, Legionella antigens, flu, RSV, thoracentesis ordered with fluid studies, O2 as needed, continue aerosol, leukocytosis coverage ordered with IV antibiotics. 2. Splenic/renal infarct: Suspected to be related to subtherapeutic INR and atrial fibrillation, heparin drip was started, patient had prior complications with Xarelto, has been on Coumadin but consider trial of Eliquis as an alternative. Echocardiogram ordered. 3. Leukocytosis: Cultures were ordered, empiric antibiotics, lactic acid normal. 4. Recurrent right-sided pleural effusion: May be related to pulmonary artery hypertension, CT shows marked dilatation of central vasculature without PE, echocardiogram ordered. Started on Lasix drip. 5. Decompensated right-sided heart failure: Lasix drip started, follow BMP, sodium restriction, consider right-sided heart cath, pulmonary medicine consult. 6. Cystic renal mass: Concerning for malignancy, abdominal MRI ordered, consult urology 7. PAF: Current atrial fibrillation, heparin drip started, again echocardiogram ordered to check for embolic sources, diltiazem and metoprolol continued. 8. GERD: Continue omeprazole 9. DVT prophylaxis: Heparin drip CODE STATUS: DNR CCA without intubation 07/14/[address] Malika Jain neurologist: increasing left upper quadrant and flank pain, atypical left renal cyst. Assessment and plan: Right renal cyst, renal infarction: No plans for intervention of 3 cm suspicious lesion during this admission, felt he could be done outpatient. 07/15/2021 consultation open soaper tender Dr. Dwayne Garcia: Assessment right pleural effusion: Continue diuretic therapy, empiric antimicrobials, thoracentesis recommended, eventual right heart cath work and secondary work-up for pH outpatient basis. 07/15/2021 echocardiogram: LV size and LV SF WNL, EF 60 to 65%. RV normal size and RV SF EF. Left atrium moderately enlarged, right atrium mildly enlarged. MV: Moderate mitral annular calcification, 1-2+ MA. TV: Normal. AV: Diffuse aortic valve calcification. PV: Not well visualized. Great vessels and aortic root normal. No pericardial effusion. No significant changes from prior echo. 07/15/2021 MR abdomen with and without IV contrast: Large right pleural effusion, moderate cardiomegaly, distended inferior vena cava and hepatic veins indicative of right-sided heart failure. Scarring of spleen related to old ischemia trauma, multiple nonenhancing lesions in the left kidney identified with contrast which may be related to inflammatory or infectious process 07/16/2021: Ultrasound-guided thoracentesis Dr. Gary Reyes: 670 mL of blood-tinged cloudy fluid drained and sent for analysis Chest x-ray following: Status post right thoracentesis no evidence of hemothorax, residual blunting of right costophrenic angle. Pertinent lab summary: 07/14/2021 blood cultures x2 sites showed no growth over 5 days. Urine clean catch for Legionella and Streptococcus pneumonia both negative. Nasal swab for rapid RSV and influenza as well as SARS Covid-2 all negative. 07/22/2021 WBC 10.2-Hgb 12.1-HCT 37-PLT 338. Chemistries: NA 136-K4.3-CL 102-CO2 30-BUN 14-CRE 0.94-GLU 90 Discharge weight 59.1 kg, BMI 26.4 Hospital course: Hospital course: Noted to be hypoxic 88% on arrival, CT showed moderate right pleural effusion with compressive atelectasis. In addition patient was found to have left renal infarct as well as splenic infarcts which were considered to be embolic. Patient's INR was subtherapeutic on the arrival. Thoracentesis as above, cytology was negative for malignancy, concern possibly due to rheumatoid arthritis. Patient is to have follow-up with pulmonology and wants to transfer care to Dr. Mariee. She did develop atrial fib with rapid ventricular rate during the hospital course, which was treated temporarily with diltiazem drip, metoprolol was increased from 25 100 mg twice daily and amiodarone 200 mg twice daily was added with successful rate control. New medications: Discharge planning follow-up: Acute respiratory failure with hypoxia Acute exacerbation chronic pleural effusion Right splenic infarct Decompensated HFpEF Cystic renal mass Paroxysmal atrial fibrillation Leukocytosis Status post thoracentesis Mitral valve annular calcification, 1-2+ insufficiency stable Aortic valve diffuse calcification stable COPD Hypertension Subtherapeutic INR due to holding Coumadin for thoracentesis Medication reconciliation: Metoprolol tartrate 100 mg p.o. twice daily #60/0 Amiodarone 200 mg p.o. twice daily #60/0 Change medications: Warfarin 4 mg p.o. daily Discontinued medications: Warfarin 2 mg Metoprolol tartrate 75 mg p.o. twice daily Continue medications: Multivitamin 1 tablet daily Calcium carbonate 600 mg (1500 mg) tablet 1 p.o. daily Furosemide 40 mg p.o. twice daily Handicap placard Albuterol sulfate 90 MCG per actuation HFA inhaler: 2 puffs every 4 hours as needed shortness of breath Omeprazole 40 mg capsule daily AC Potassium chloride 20 mEq ER: 1 tablet twice daily Diltiazem 2040 mg capsule extended release 24-hour: 1 capsule daily Referral/follow-up: Dr. Flaquito Mariee pulmonology 2 weeks Thoracic aorta atherosclerosis 03/23/2020 0 09/23/2020 Chronic systolic heart failure 11/21/2019 0 09/23/2020 Fatigue 11/24/2016 10/10/2017 Atrial fibrillation 01/14/2014 10/10/2017 Multiple thyroid nodules 03/03/2011 021 Hypertension 01/19/2011 06/23/2015 Esophagitis, unspecified 01/13/2009 018 Gastrointestinal malfunction arising from mental factors 12/09/2008 10/10/2017 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 Dysphagia, unspecified(787.20) 1 07/09/2017 documented as of this encounter (statuses as of 09/23/2022) [facility]11-15-2022 History of Past illness Narrative* Problem Noted Date Resolved Date Renal infarct 04/19/2022 07/26/2022 Overview: Has seen Dr. Chaney. Needs to just follow up prn. Pleural effusion 01/31/2022 04/19/2022 Encounter for support and coordination of transi tion of care 07/20/2021 07/26/2022 Overview: Facility: [facility] Date of admission 07/14/2021 Date of discharge Prehospital work-up: Presented to 07/14/2021 to [facility] ED complaining of left-sided abdominal pain with multiple symptoms including cough, myalgias, nasal congestion, low dietary intake due to concerns that would aggravate stomach ache. Patient was exposed to Covid 2 weeks prior, unvaccinated. Vital signs: 98.3 B-956-93-143/102-93% RA. Exam description: Tired, alert and nontoxic, normal respiratory effort, mild tenderness left upper quadrant without rebound or guarding. WBC 20.3-Hgb 14-HCT 43-PLT 388-Ig percent 0.5-absolute neutrophil 17 point 3H Lactic acid 1.2. Sodium 131-K3.8-CL 95-CO2 29.0, glucose 133, otherwise CMP is within normal limits. Calcium 9.1. Liver panel: Total bili 1.10H-AST 180-ALT 95-ALP 126-total protein 8.3-Albumin three-point 3-5 and 50.0-lipase 74. 07/14/2021 CT abdomen pelvis: Dilated main and bilateral pulmonary arteries suggesting pulmonary hypertension, moderate volume right pleural effusion with compressive atelectasis at right lower lobe, moderate cardiomegaly with dilated right ventricle and reflux of contrast in IVC suggesting right heart dysfunction. Heterogenous enhancement and decreased density of the left kidney new since CTA on 01/03/2014- may represent renal ischemia/infarction versus pyelonephritis, neoplasm not ruled out. 2.9 superior and lateral left renal cyst with delayed peripheral nodular enhancement suspicious for cystic renal neoplasm, MRI/CT with IV contrast recommended. Splenic infarction, given left renal and splenic infarctions embolic etiology should be considered. Patient was given IV fluids due to tachycardia, patient's anticoagulants were held for thoracentesis, so there were concerns about possible pulmonary emboli, CT was therefore ordered with negative findings. Case was discussed with hospitalist and decision to admit Patient was admitted under Dr. Maddie Nascimento: Acute problem list and plan: 1. Acute hypoxic respiratory failure secondary right-sided pleural effusion with decompensated RV dysfunction, elevated leukocytosis with recent hospitalization could have concurrent pneumonia: We will check strep pneumo, Legionella antigens, flu, RSV, thoracentesis ordered with fluid studies, O2 as needed, continue aerosol, leukocytosis coverage ordered with IV antibiotics. 2. Splenic/renal infarct: Suspected to be related to subtherapeutic INR and atrial fibrillation, heparin drip was started, patient had prior complications with Xarelto, has been on Coumadin but consider trial of Eliquis as an alternative. Echocardiogram ordered. 3. Leukocytosis: Cultures were ordered, empiric antibiotics, lactic acid normal. 4. Recurrent right-sided pleural effusion: May be related to pulmonary artery hypertension, CT shows marked dilatation of central vasculature without PE, echocardiogram ordered. Started on Lasix drip. 5. Decompensated right-sided heart failure: Lasix drip started, follow BMP, sodium restriction, consider right-sided heart cath, pulmonary medicine consult. 6. Cystic renal mass: Concerning for malignancy, abdominal MRI ordered, consult urology 7. PAF: Current atrial fibrillation, heparin drip started, again echocardiogram ordered to check for embolic sources, diltiazem and metoprolol continued. 8. GERD: Continue omeprazole 9. DVT prophylaxis: Heparin drip CODE STATUS: DNR CCA without intubation 07/14/[address] Malika Jain neurologist: increasing left upper quadrant and flank pain, atypical left renal cyst. Assessment and plan: Right renal cyst, renal infarction: No plans for intervention of 3 cm suspicious lesion during this admission, felt he could be done outpatient. 07/15/2021 consultation open soaper tender Dr. Dwayne Garcia: Assessment right pleural effusion: Continue diuretic therapy, empiric antimicrobials, thoracentesis recommended, eventual right heart cath work and secondary work-up for pH outpatient basis. 07/15/2021 echocardiogram: LV size and LV SF WNL, EF 60 to 65%. RV normal size and RV SF EF. Left atrium moderately enlarged, right atrium mildly enlarged. MV: Moderate mitral annular calcification, 1-2+ MA. TV: Normal. AV: Diffuse aortic valve calcification. PV: Not well visualized. Great vessels and aortic root normal. No pericardial effusion. No significant changes from prior echo. 07/15/2021 MR abdomen with and without IV contrast: Large right pleural effusion, moderate cardiomegaly, distended inferior vena cava and hepatic veins indicative of right-sided heart failure. Scarring of spleen related to old ischemia trauma, multiple nonenhancing lesions in the left kidney identified with contrast which may be related to inflammatory or infectious process 07/16/2021: Ultrasound-guided thoracentesis Dr. Gary Reyes: 670 mL of blood-tinged cloudy fluid drained and sent for analysis Chest x-ray following: Status post right thoracentesis no evidence of hemothorax, residual blunting of right costophrenic angle. Pertinent lab summary: 07/14/2021 blood cultures x2 sites showed no growth over 5 days. Urine clean catch for Legionella and Streptococcus pneumonia both negative. Nasal swab for rapid RSV and influenza as well as SARS Covid-2 all negative. 07/22/2021 WBC 10.2-Hgb 12.1-HCT 37-PLT 338. Chemistries: NA 136-K4.3-CL 102-CO2 30-BUN 14-CRE 0.94-GLU 90 Discharge weight 59.1 kg, BMI 26.4 Hospital course: Hospital course: Noted to be hypoxic 88% on arrival, CT showed moderate right pleural effusion with compressive atelectasis. In addition patient was found to have left renal infarct as well as splenic infarcts which were considered to be embolic. Patient's INR was subtherapeutic on the arrival. Thoracentesis as above, cytology was negative for malignancy, concern possibly due to rheumatoid arthritis. Patient is to have follow-up with pulmonology and wants to transfer care to Dr. Mariee. She did develop atrial fib with rapid ventricular rate during the hospital course, which was treated temporarily with diltiazem drip, metoprolol was increased from 25 100 mg twice daily and amiodarone 200 mg twice daily was added with successful rate control. New medications: Discharge planning follow-up: Acute respiratory failure with hypoxia Acute exacerbation chronic pleural effusion Right splenic infarct Decompensated HFpEF Cystic renal mass Paroxysmal atrial fibrillation Leukocytosis Status post thoracentesis Mitral valve annular calcification, 1-2+ insufficiency stable Aortic valve diffuse calcification stable COPD Hypertension Subtherapeutic INR due to holding Coumadin for thoracentesis Medication reconciliation: Metoprolol tartrate 100 mg p.o. twice daily #60/0 Amiodarone 200 mg p.o. twice daily #60/0 Change medications: Warfarin 4 mg p.o. daily Discontinued medications: Warfarin 2 mg Metoprolol tartrate 75 mg p.o. twice daily Continue medications: Multivitamin 1 tablet daily Calcium carbonate 600 mg (1500 mg) tablet 1 p.o. daily Furosemide 40 mg p.o. twice daily Handicap placard Albuterol sulfate 90 MCG per actuation HFA inhaler: 2 puffs every 4 hours as needed shortness of breath Omeprazole 40 mg capsule daily AC Potassium chloride 20 mEq ER: 1 tablet twice daily Diltiazem 2040 mg capsule extended release 24-hour: 1 capsule daily Referral/follow-up: Dr. Flaquito Mariee pulmonology 2 weeks Thoracic aorta atherosclerosis 03/23/2020 0 09/23/2020 Chronic systolic heart failure 11/21/2019 0 09/23/2020 Fatigue 11/24/2016 10/10/2017 Atrial fibrillation 01/14/2014 10/10/2017 Multiple thyroid nodules 03/03/2011 021 Hypertension 01/19/2011 06/23/2015 Esophagitis, unspecified 01/13/2009 018 Gastrointestinal malfunction arising from mental factors 12/09/2008 10/10/2017 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 Dysphagia, unspecified(787.20) 1 07/09/2017 documented as of this encounter (statuses as of 09/23/2022) [facility]11-15-2022 History of Past illness Narrative* Problem Noted Date Resolved Date Renal infarct 04/19/2022 07/26/2022 Overview: Has seen Dr. Chaney. Needs to just follow up prn. Pleural effusion 01/31/2022 04/19/2022 Encounter for support and coordination of transi tion of care 07/20/2021 07/26/2022 Overview: Facility: [facility] Date of admission 07/14/2021 Date of discharge Prehospital work-up: Presented to 07/14/2021 to [facility] ED complaining of left-sided abdominal pain with multiple symptoms including cough, myalgias, nasal congestion, low dietary intake due to concerns that would aggravate stomach ache. Patient was exposed to Covid 2 weeks prior, unvaccinated. Vital signs: 98.3 M-[id number]/102-93% RA. Exam description: Tired, alert and nontoxic, normal respiratory effort, mild tenderness left upper quadrant without rebound or guarding. WBC 20.3-Hgb 14-HCT 43-PLT 388-Ig percent 0.5-absolute neutrophil 17 point 3H Lactic acid 1.2. Sodium 131-K3.8-CL 95-CO2 29.0, glucose 133, otherwise CMP is within normal limits. Calcium 9.1. Liver panel: Total bili 1.10H-AST 180-ALT 95-ALP 126-total protein 8.3-Albumin three-point 3-5 and 50.0-lipase 74. 07/14/2021 CT abdomen pelvis: Dilated main and bilateral pulmonary arteries suggesting pulmonary hypertension, moderate volume right pleural effusion with compressive atelectasis at right lower lobe, moderate cardiomegaly with dilated right ventricle and reflux of contrast in IVC suggesting right heart dysfunction. Heterogenous enhancement and decreased density of the left kidney new since CTA on 01/03/2014- may represent renal ischemia/infarction versus pyelonephritis, neoplasm not ruled out. 2.9 superior and lateral left renal cyst with delayed peripheral nodular enhancement suspicious for cystic renal neoplasm, MRI/CT with IV contrast recommended. Splenic infarction, given left renal and splenic infarctions embolic etiology should be considered. Patient was given IV fluids due to tachycardia, patient's anticoagulants were held for thoracentesis, so there were concerns about possible pulmonary emboli, CT was therefore ordered with negative findings. Case was discussed with hospitalist and decision to admit Patient was admitted under Dr. Maddie Nascimento: Acute problem list and plan: 1. Acute hypoxic respiratory failure secondary right-sided pleural effusion with decompensated RV dysfunction, elevated leukocytosis with recent hospitalization could have concurrent pneumonia: We will check strep pneumo, Legionella antigens, flu, RSV, thoracentesis ordered with fluid studies, O2 as needed, continue aerosol, leukocytosis coverage ordered with IV antibiotics. 2. Splenic/renal infarct: Suspected to be related to subtherapeutic INR and atrial fibrillation, heparin drip was started, patient had prior complications with Xarelto, has been on Coumadin but consider trial of Eliquis as an alternative. Echocardiogram ordered. 3. Leukocytosis: Cultures were ordered, empiric antibiotics, lactic acid normal. 4. Recurrent right-sided pleural effusion: May be related to pulmonary artery hypertension, CT shows marked dilatation of central vasculature without PE, echocardiogram ordered. Started on Lasix drip. 5. Decompensated right-sided heart failure: Lasix drip started, follow BMP, sodium restriction, consider right-sided heart cath, pulmonary medicine consult. 6. Cystic renal mass: Concerning for malignancy, abdominal MRI ordered, consult urology 7. PAF: Current atrial fibrillation, heparin drip started, again echocardiogram ordered to check for embolic sources, diltiazem and metoprolol continued. 8. GERD: Continue omeprazole 9. DVT prophylaxis: Heparin drip CODE STATUS: DNR CCA without intubation 07/14/[address] Malika Jain neurologist: increasing left upper quadrant and flank pain, atypical left renal cyst. Assessment and plan: Right renal cyst, renal infarction: No plans for intervention of 3 cm suspicious lesion during this admission, felt he could be done outpatient. 07/15/2021 consultation open soaper tender Dr. Dwayne Garcia: Assessment right pleural effusion: Continue diuretic therapy, empiric antimicrobials, thoracentesis recommended, eventual right heart cath work and secondary work-up for pH outpatient basis. 07/15/2021 echocardiogram: LV size and LV SF WNL, EF 60 to 65%. RV normal size and RV SF EF. Left atrium moderately enlarged, right atrium mildly enlarged. MV: Moderate mitral annular calcification, 1-2+ MA. TV: Normal. AV: Diffuse aortic valve calcification. PV: Not well visualized. Great vessels and aortic root normal. No pericardial effusion. No significant changes from prior echo. 07/15/2021 MR abdomen with and without IV contrast: Large right pleural effusion, moderate cardiomegaly, distended inferior vena cava and hepatic veins indicative of right-sided heart failure. Scarring of spleen related to old ischemia trauma, multiple nonenhancing lesions in the left kidney identified with contrast which may be related to inflammatory or infectious process 07/16/2021: Ultrasound-guided thoracentesis Dr. Gary Reyes: 670 mL of blood-tinged cloudy fluid drained and sent for analysis Chest x-ray following: Status post right thoracentesis no evidence of hemothorax, residual blunting of right costophrenic angle. Pertinent lab summary: 07/14/2021 blood cultures x2 sites showed no growth over 5 days. Urine clean catch for Legionella and Streptococcus pneumonia both negative. Nasal swab for rapid RSV and influenza as well as SARS Covid-2 all negative. 07/22/2021 WBC 10.2-Hgb 12.1-HCT 37-PLT 338. Chemistries: NA 136-K4.3-CL 102-CO2 30-BUN 14-CRE 0.94-GLU 90 Discharge weight 59.1 kg, BMI 26.4 Hospital course: Hospital course: Noted to be hypoxic 88% on arrival, CT showed moderate right pleural effusion with compressive atelectasis. In addition patient was found to have left renal infarct as well as splenic infarcts which were considered to be embolic. Patient's INR was subtherapeutic on the arrival. Thoracentesis as above, cytology was negative for malignancy, concern possibly due to rheumatoid arthritis. Patient is to have follow-up with pulmonology and wants to transfer care to Dr. Mariee. She did develop atrial fib with rapid ventricular rate during the hospital course, which was treated temporarily with diltiazem drip, metoprolol was increased from 25 100 mg twice daily and amiodarone 200 mg twice daily was added with successful rate control. New medications: Discharge planning follow-up: Acute respiratory failure with hypoxia Acute exacerbation chronic pleural effusion Right splenic infarct Decompensated HFpEF Cystic renal mass Paroxysmal atrial fibrillation Leukocytosis Status post thoracentesis Mitral valve annular calcification, 1-2+ insufficiency stable Aortic valve diffuse calcification stable COPD Hypertension Subtherapeutic INR due to holding Coumadin for thoracentesis Medication reconciliation: Metoprolol tartrate 100 mg p.o. twice daily #60/0 Amiodarone 200 mg p.o. twice daily #60/0 Change medications: Warfarin 4 mg p.o. daily Discontinued medications: Warfarin 2 mg Metoprolol tartrate 75 mg p.o. twice daily Continue medications: Multivitamin 1 tablet daily Calcium carbonate 600 mg (1500 mg) tablet 1 p.o. daily Furosemide 40 mg p.o. twice daily Handicap placard Albuterol sulfate 90 MCG per actuation HFA inhaler: 2 puffs every 4 hours as needed shortness of breath Omeprazole 40 mg capsule daily AC Potassium chloride 20 mEq ER: 1 tablet twice daily Diltiazem 2040 mg capsule extended release 24-hour: 1 capsule daily Referral/follow-up: Dr. Flaquito Mariee pulmonology 2 weeks Thoracic aorta atherosclerosis 03/23/2020 0 09/23/2020 Chronic systolic heart failure 11/21/2019 0 09/23/2020 Fatigue 11/24/2016 10/10/2017 Atrial fibrillation 01/14/2014 10/10/2017 Multiple thyroid nodules 03/03/2011 021 Hypertension 01/19/2011 06/23/2015 Esophagitis, unspecified 01/13/2009 018 Gastrointestinal malfunction arising from mental factors 12/09/2008 10/10/2017 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 Dysphagia, unspecified(787.20) 1 07/09/2017 documented as of this encounter (statuses as of 09/27/2022) [facility]11-15-2022 History of Past illness Narrative* Problem Noted Date Resolved Date Renal infarct 04/19/2022 07/26/2022 Overview: Has seen Dr. Chaney. Needs to just follow up prn. Pleural effusion 01/31/2022 04/19/2022 Encounter for support and coordination of transi tion of care 07/20/2021 07/26/2022 Overview: Facility: [facility] Date of admission 07/14/2021 Date of discharge Prehospital work-up: Presented to 07/14/2021 to [facility] ED complaining of left-sided abdominal pain with multiple symptoms including cough, myalgias, nasal congestion, low dietary intake due to concerns that would aggravate stomach ache. Patient was exposed to Covid 2 weeks prior, unvaccinated. Vital signs: 98.3 E-338-00-143/102-93% RA. Exam description: Tired, alert and nontoxic, normal respiratory effort, mild tenderness left upper quadrant without rebound or guarding. WBC 20.3-Hgb 14-HCT 43-PLT 388-Ig percent 0.5-absolute neutrophil 17 point 3H Lactic acid 1.2. Sodium 131-K3.8-CL 95-CO2 29.0, glucose 133, otherwise CMP is within normal limits. Calcium 9.1. Liver panel: Total bili 1.10H-AST 180-ALT 95-ALP 126-total protein 8.3-Albumin three-point 3-5 and 50.0-lipase 74. 07/14/2021 CT abdomen pelvis: Dilated main and bilateral pulmonary arteries suggesting pulmonary hypertension, moderate volume right pleural effusion with compressive atelectasis at right lower lobe, moderate cardiomegaly with dilated right ventricle and reflux of contrast in IVC suggesting right heart dysfunction. Heterogenous enhancement and decreased density of the left kidney new since CTA on 01/03/2014- may represent renal ischemia/infarction versus pyelonephritis, neoplasm not ruled out. 2.9 superior and lateral left renal cyst with delayed peripheral nodular enhancement suspicious for cystic renal neoplasm, MRI/CT with IV contrast recommended. Splenic infarction, given left renal and splenic infarctions embolic etiology should be considered. Patient was given IV fluids due to tachycardia, patient's anticoagulants were held for thoracentesis, so there were concerns about possible pulmonary emboli, CT was therefore ordered with negative findings. Case was discussed with hospitalist and decision to admit Patient was admitted under Dr. Maddie Nascimento: Acute problem list and plan: 1. Acute hypoxic respiratory failure secondary right-sided pleural effusion with decompensated RV dysfunction, elevated leukocytosis with recent hospitalization could have concurrent pneumonia: We will check strep pneumo, Legionella antigens, flu, RSV, thoracentesis ordered with fluid studies, O2 as needed, continue aerosol, leukocytosis coverage ordered with IV antibiotics. 2. Splenic/renal infarct: Suspected to be related to subtherapeutic INR and atrial fibrillation, heparin drip was started, patient had prior complications with Xarelto, has been on Coumadin but consider trial of Eliquis as an alternative. Echocardiogram ordered. 3. Leukocytosis: Cultures were ordered, empiric antibiotics, lactic acid normal. 4. Recurrent right-sided pleural effusion: May be related to pulmonary artery hypertension, CT shows marked dilatation of central vasculature without PE, echocardiogram ordered. Started on Lasix drip. 5. Decompensated right-sided heart failure: Lasix drip started, follow BMP, sodium restriction, consider right-sided heart cath, pulmonary medicine consult. 6. Cystic renal mass: Concerning for malignancy, abdominal MRI ordered, consult urology 7. PAF: Current atrial fibrillation, heparin drip started, again echocardiogram ordered to check for embolic sources, diltiazem and metoprolol continued. 8. GERD: Continue omeprazole 9. DVT prophylaxis: Heparin drip CODE STATUS: DNR CCA without intubation 07/14/[address] Malika Jain neurologist: increasing left upper quadrant and flank pain, atypical left renal cyst. Assessment and plan: Right renal cyst, renal infarction: No plans for intervention of 3 cm suspicious lesion during this admission, felt he could be done outpatient. 07/15/2021 consultation open soaper tender Dr. Dwayne Garcia: Assessment right pleural effusion: Continue diuretic therapy, empiric antimicrobials, thoracentesis recommended, eventual right heart cath work and secondary work-up for pH outpatient basis. 07/15/2021 echocardiogram: LV size and LV SF WNL, EF 60 to 65%. RV normal size and RV SF EF. Left atrium moderately enlarged, right atrium mildly enlarged. MV: Moderate mitral annular calcification, 1-2+ MA. TV: Normal. AV: Diffuse aortic valve calcification. PV: Not well visualized. Great vessels and aortic root normal. No pericardial effusion. No significant changes from prior echo. 07/15/2021 MR abdomen with and without IV contrast: Large right pleural effusion, moderate cardiomegaly, distended inferior vena cava and hepatic veins indicative of right-sided heart failure. Scarring of spleen related to old ischemia trauma, multiple nonenhancing lesions in the left kidney identified with contrast which may be related to inflammatory or infectious process 07/16/2021: Ultrasound-guided thoracentesis Dr. Gary Reyes: 670 mL of blood-tinged cloudy fluid drained and sent for analysis Chest x-ray following: Status post right thoracentesis no evidence of hemothorax, residual blunting of right costophrenic angle. Pertinent lab summary: 07/14/2021 blood cultures x2 sites showed no growth over 5 days. Urine clean catch for Legionella and Streptococcus pneumonia both negative. Nasal swab for rapid RSV and influenza as well as SARS Covid-2 all negative. 07/22/2021 WBC 10.2-Hgb 12.1-HCT 37-PLT 338. Chemistries: NA 136-K4.3-CL 102-CO2 30-BUN 14-CRE 0.94-GLU 90 Discharge weight 59.1 kg, BMI 26.4 Hospital course: Hospital course: Noted to be hypoxic 88% on arrival, CT showed moderate right pleural effusion with compressive atelectasis. In addition patient was found to have left renal infarct as well as splenic infarcts which were considered to be embolic. Patient's INR was subtherapeutic on the arrival. Thoracentesis as above, cytology was negative for malignancy, concern possibly due to rheumatoid arthritis. Patient is to have follow-up with pulmonology and wants to transfer care to Dr. Mariee. She did develop atrial fib with rapid ventricular rate during the hospital course, which was treated temporarily with diltiazem drip, metoprolol was increased from 25 100 mg twice daily and amiodarone 200 mg twice daily was added with successful rate control. New medications: Discharge planning follow-up: Acute respiratory failure with hypoxia Acute exacerbation chronic pleural effusion Right splenic infarct Decompensated HFpEF Cystic renal mass Paroxysmal atrial fibrillation Leukocytosis Status post thoracentesis Mitral valve annular calcification, 1-2+ insufficiency stable Aortic valve diffuse calcification stable COPD Hypertension Subtherapeutic INR due to holding Coumadin for thoracentesis Medication reconciliation: Metoprolol tartrate 100 mg p.o. twice daily #60/0 Amiodarone 200 mg p.o. twice daily #60/0 Change medications: Warfarin 4 mg p.o. daily Discontinued medications: Warfarin 2 mg Metoprolol tartrate 75 mg p.o. twice daily Continue medications: Multivitamin 1 tablet daily Calcium carbonate 600 mg (1500 mg) tablet 1 p.o. daily Furosemide 40 mg p.o. twice daily Handicap placard Albuterol sulfate 90 MCG per actuation HFA inhaler: 2 puffs every 4 hours as needed shortness of breath Omeprazole 40 mg capsule daily AC Potassium chloride 20 mEq ER: 1 tablet twice daily Diltiazem 2040 mg capsule extended release 24-hour: 1 capsule daily Referral/follow-up: Dr. Flaquito Mariee pulmonology 2 weeks Thoracic aorta atherosclerosis 03/23/2020 0 09/23/2020 Chronic systolic heart failure 11/21/2019 0 09/23/2020 Fatigue 11/24/2016 10/10/2017 Atrial fibrillation 01/14/2014 10/10/2017 Multiple thyroid nodules 03/03/2011 021 Hypertension 01/19/2011 06/23/2015 Esophagitis, unspecified 01/13/2009 018 Gastrointestinal malfunction arising from mental factors 12/09/2008 10/10/2017 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 Dysphagia, unspecified(787.20) 1 07/09/2017 documented as of this encounter (statuses as of 09/29/2022) [facility]11-15-2022 History of Past illness Narrative* Problem Noted Date Resolved Date Renal infarct 04/19/2022 07/26/2022 Overview: Has seen Dr. Chaney. Needs to just follow up prn. Pleural effusion 01/31/2022 04/19/2022 Encounter for support and coordination of transi tion of care 07/20/2021 07/26/2022 Overview: Facility: [facility] Date of admission 07/14/2021 Date of discharge Prehospital work-up: Presented to 07/14/2021 to [facility] ED complaining of left-sided abdominal pain with multiple symptoms including cough, myalgias, nasal congestion, low dietary intake due to concerns that would aggravate stomach ache. Patient was exposed to Covid 2 weeks prior, unvaccinated. Vital signs: 98.3 W-[id number]/102-93% RA. Exam description: Tired, alert and nontoxic, normal respiratory effort, mild tenderness left upper quadrant without rebound or guarding. WBC 20.3-Hgb 14-HCT 43-PLT 388-Ig percent 0.5-absolute neutrophil 17 point 3H Lactic acid 1.2. Sodium 131-K3.8-CL 95-CO2 29.0, glucose 133, otherwise CMP is within normal limits. Calcium 9.1. Liver panel: Total bili 1.10H-AST 180-ALT 95-ALP 126-total protein 8.3-Albumin three-point 3-5 and 50.0-lipase 74. 07/14/2021 CT abdomen pelvis: Dilated main and bilateral pulmonary arteries suggesting pulmonary hypertension, moderate volume right pleural effusion with compressive atelectasis at right lower lobe, moderate cardiomegaly with dilated right ventricle and reflux of contrast in IVC suggesting right heart dysfunction. Heterogenous enhancement and decreased density of the left kidney new since CTA on 01/03/2014- may represent renal ischemia/infarction versus pyelonephritis, neoplasm not ruled out. 2.9 superior and lateral left renal cyst with delayed peripheral nodular enhancement suspicious for cystic renal neoplasm, MRI/CT with IV contrast recommended. Splenic infarction, given left renal and splenic infarctions embolic etiology should be considered. Patient was given IV fluids due to tachycardia, patient's anticoagulants were held for thoracentesis, so there were concerns about possible pulmonary emboli, CT was therefore ordered with negative findings. Case was discussed with hospitalist and decision to admit Patient was admitted under Dr. Maddie Nascimento: Acute problem list and plan: 1. Acute hypoxic respiratory failure secondary right-sided pleural effusion with decompensated RV dysfunction, elevated leukocytosis with recent hospitalization could have concurrent pneumonia: We will check strep pneumo, Legionella antigens, flu, RSV, thoracentesis ordered with fluid studies, O2 as needed, continue aerosol, leukocytosis coverage ordered with IV antibiotics. 2. Splenic/renal infarct: Suspected to be related to subtherapeutic INR and atrial fibrillation, heparin drip was started, patient had prior complications with Xarelto, has been on Coumadin but consider trial of Eliquis as an alternative. Echocardiogram ordered. 3. Leukocytosis: Cultures were ordered, empiric antibiotics, lactic acid normal. 4. Recurrent right-sided pleural effusion: May be related to pulmonary artery hypertension, CT shows marked dilatation of central vasculature without PE, echocardiogram ordered. Started on Lasix drip. 5. Decompensated right-sided heart failure: Lasix drip started, follow BMP, sodium restriction, consider right-sided heart cath, pulmonary medicine consult. 6. Cystic renal mass: Concerning for malignancy, abdominal MRI ordered, consult urology 7. PAF: Current atrial fibrillation, heparin drip started, again echocardiogram ordered to check for embolic sources, diltiazem and metoprolol continued. 8. GERD: Continue omeprazole 9. DVT prophylaxis: Heparin drip CODE STATUS: DNR CCA without intubation 07/14/[address] Malika Jain neurologist: increasing left upper quadrant and flank pain, atypical left renal cyst. Assessment and plan: Right renal cyst, renal infarction: No plans for intervention of 3 cm suspicious lesion during this admission, felt he could be done outpatient. 07/15/2021 consultation open soaper tender Dr. Dwayne Garcia: Assessment right pleural effusion: Continue diuretic therapy, empiric antimicrobials, thoracentesis recommended, eventual right heart cath work and secondary work-up for pH outpatient basis. 07/15/2021 echocardiogram: LV size and LV SF WNL, EF 60 to 65%. RV normal size and RV SF EF. Left atrium moderately enlarged, right atrium mildly enlarged. MV: Moderate mitral annular calcification, 1-2+ MA. TV: Normal. AV: Diffuse aortic valve calcification. PV: Not well visualized. Great vessels and aortic root normal. No pericardial effusion. No significant changes from prior echo. 07/15/2021 MR abdomen with and without IV contrast: Large right pleural effusion, moderate cardiomegaly, distended inferior vena cava and hepatic veins indicative of right-sided heart failure. Scarring of spleen related to old ischemia trauma, multiple nonenhancing lesions in the left kidney identified with contrast which may be related to inflammatory or infectious process 07/16/2021: Ultrasound-guided thoracentesis Dr. Gary Reyes: 670 mL of blood-tinged cloudy fluid drained and sent for analysis Chest x-ray following: Status post right thoracentesis no evidence of hemothorax, residual blunting of right costophrenic angle. Pertinent lab summary: 07/14/2021 blood cultures x2 sites showed no growth over 5 days. Urine clean catch for Legionella and Streptococcus pneumonia both negative. Nasal swab for rapid RSV and influenza as well as SARS Covid-2 all negative. 07/22/2021 WBC 10.2-Hgb 12.1-HCT 37-PLT 338. Chemistries: NA 136-K4.3-CL 102-CO2 30-BUN 14-CRE 0.94-GLU 90 Discharge weight 59.1 kg, BMI 26.4 Hospital course: Hospital course: Noted to be hypoxic 88% on arrival, CT showed moderate right pleural effusion with compressive atelectasis. In addition patient was found to have left renal infarct as well as splenic infarcts which were considered to be embolic. Patient's INR was subtherapeutic on the arrival. Thoracentesis as above, cytology was negative for malignancy, concern possibly due to rheumatoid arthritis. Patient is to have follow-up with pulmonology and wants to transfer care to Dr. Mariee. She did develop atrial fib with rapid ventricular rate during the hospital course, which was treated temporarily with diltiazem drip, metoprolol was increased from 25 100 mg twice daily and amiodarone 200 mg twice daily was added with successful rate control. New medications: Discharge planning follow-up: Acute respiratory failure with hypoxia Acute exacerbation chronic pleural effusion Right splenic infarct Decompensated HFpEF Cystic renal mass Paroxysmal atrial fibrillation Leukocytosis Status post thoracentesis Mitral valve annular calcification, 1-2+ insufficiency stable Aortic valve diffuse calcification stable COPD Hypertension Subtherapeutic INR due to holding Coumadin for thoracentesis Medication reconciliation: Metoprolol tartrate 100 mg p.o. twice daily #60/0 Amiodarone 200 mg p.o. twice daily #60/0 Change medications: Warfarin 4 mg p.o. daily Discontinued medications: Warfarin 2 mg Metoprolol tartrate 75 mg p.o. twice daily Continue medications: Multivitamin 1 tablet daily Calcium carbonate 600 mg (1500 mg) tablet 1 p.o. daily Furosemide 40 mg p.o. twice daily Handicap placard Albuterol sulfate 90 MCG per actuation HFA inhaler: 2 puffs every 4 hours as needed shortness of breath Omeprazole 40 mg capsule daily AC Potassium chloride 20 mEq ER: 1 tablet twice daily Diltiazem 2040 mg capsule extended release 24-hour: 1 capsule daily Referral/follow-up: Dr. Flaquito Mariee pulmonology 2 weeks Thoracic aorta atherosclerosis 03/23/2020 0 09/23/2020 Chronic systolic heart failure 11/21/2019 0 09/23/2020 Fatigue 11/24/2016 10/10/2017 Atrial fibrillation 01/14/2014 10/10/2017 Multiple thyroid nodules 03/03/2011 021 Hypertension 01/19/2011 06/23/2015 Esophagitis, unspecified 01/13/2009 018 Gastrointestinal malfunction arising from mental factors 12/09/2008 10/10/2017 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 Dysphagia, unspecified(787.20) 1 07/09/2017 documented as of this encounter (statuses as of 10/07/2022) [facility]11-15-2022 History of Past illness Narrative* Problem Noted Date Resolved Date Renal infarct 04/19/2022 07/26/2022 Overview: Has seen Dr. Chaney. Needs to just follow up prn. Pleural effusion 01/31/2022 04/19/2022 Encounter for support and coordination of transi tion of care 07/20/2021 07/26/2022 Overview: Facility: [facility] Date of admission 07/14/2021 Date of discharge Prehospital work-up: Presented to 07/14/2021 to [facility] ED complaining of left-sided abdominal pain with multiple symptoms including cough, myalgias, nasal congestion, low dietary intake due to concerns that would aggravate stomach ache. Patient was exposed to Covid 2 weeks prior, unvaccinated. Vital signs: 98.3 T-952-72-143/102-93% RA. Exam description: Tired, alert and nontoxic, normal respiratory effort, mild tenderness left upper quadrant without rebound or guarding. WBC 20.3-Hgb 14-HCT 43-PLT 388-Ig percent 0.5-absolute neutrophil 17 point 3H Lactic acid 1.2. Sodium 131-K3.8-CL 95-CO2 29.0, glucose 133, otherwise CMP is within normal limits. Calcium 9.1. Liver panel: Total bili 1.10H-AST 180-ALT 95-ALP 126-total protein 8.3-Albumin three-point 3-5 and 50.0-lipase 74. 07/14/2021 CT abdomen pelvis: Dilated main and bilateral pulmonary arteries suggesting pulmonary hypertension, moderate volume right pleural effusion with compressive atelectasis at right lower lobe, moderate cardiomegaly with dilated right ventricle and reflux of contrast in IVC suggesting right heart dysfunction. Heterogenous enhancement and decreased density of the left kidney new since CTA on 01/03/2014- may represent renal ischemia/infarction versus pyelonephritis, neoplasm not ruled out. 2.9 superior and lateral left renal cyst with delayed peripheral nodular enhancement suspicious for cystic renal neoplasm, MRI/CT with IV contrast recommended. Splenic infarction, given left renal and splenic infarctions embolic etiology should be considered. Patient was given IV fluids due to tachycardia, patient's anticoagulants were held for thoracentesis, so there were concerns about possible pulmonary emboli, CT was therefore ordered with negative findings. Case was discussed with hospitalist and decision to admit Patient was admitted under Dr. Maddie Nascimento: Acute problem list and plan: 1. Acute hypoxic respiratory failure secondary right-sided pleural effusion with decompensated RV dysfunction, elevated leukocytosis with recent hospitalization could have concurrent pneumonia: We will check strep pneumo, Legionella antigens, flu, RSV, thoracentesis ordered with fluid studies, O2 as needed, continue aerosol, leukocytosis coverage ordered with IV antibiotics. 2. Splenic/renal infarct: Suspected to be related to subtherapeutic INR and atrial fibrillation, heparin drip was started, patient had prior complications with Xarelto, has been on Coumadin but consider trial of Eliquis as an alternative. Echocardiogram ordered. 3. Leukocytosis: Cultures were ordered, empiric antibiotics, lactic acid normal. 4. Recurrent right-sided pleural effusion: May be related to pulmonary artery hypertension, CT shows marked dilatation of central vasculature without PE, echocardiogram ordered. Started on Lasix drip. 5. Decompensated right-sided heart failure: Lasix drip started, follow BMP, sodium restriction, consider right-sided heart cath, pulmonary medicine consult. 6. Cystic renal mass: Concerning for malignancy, abdominal MRI ordered, consult urology 7. PAF: Current atrial fibrillation, heparin drip started, again echocardiogram ordered to check for embolic sources, diltiazem and metoprolol continued. 8. GERD: Continue omeprazole 9. DVT prophylaxis: Heparin drip CODE STATUS: DNR CCA without intubation 07/14/[address] Malika Jain neurologist: increasing left upper quadrant and flank pain, atypical left renal cyst. Assessment and plan: Right renal cyst, renal infarction: No plans for intervention of 3 cm suspicious lesion during this admission, felt he could be done outpatient. 07/15/2021 consultation open soaper tender Dr. Dwayne Garcia: Assessment right pleural effusion: Continue diuretic therapy, empiric antimicrobials, thoracentesis recommended, eventual right heart cath work and secondary work-up for pH outpatient basis. 07/15/2021 echocardiogram: LV size and LV SF WNL, EF 60 to 65%. RV normal size and RV SF EF. Left atrium moderately enlarged, right atrium mildly enlarged. MV: Moderate mitral annular calcification, 1-2+ MA. TV: Normal. AV: Diffuse aortic valve calcification. PV: Not well visualized. Great vessels and aortic root normal. No pericardial effusion. No significant changes from prior echo. 07/15/2021 MR abdomen with and without IV contrast: Large right pleural effusion, moderate cardiomegaly, distended inferior vena cava and hepatic veins indicative of right-sided heart failure. Scarring of spleen related to old ischemia trauma, multiple nonenhancing lesions in the left kidney identified with contrast which may be related to inflammatory or infectious process 07/16/2021: Ultrasound-guided thoracentesis Dr. Gary Reyes: 670 mL of blood-tinged cloudy fluid drained and sent for analysis Chest x-ray following: Status post right thoracentesis no evidence of hemothorax, residual blunting of right costophrenic angle. Pertinent lab summary: 07/14/2021 blood cultures x2 sites showed no growth over 5 days. Urine clean catch for Legionella and Streptococcus pneumonia both negative. Nasal swab for rapid RSV and influenza as well as SARS Covid-2 all negative. 07/22/2021 WBC 10.2-Hgb 12.1-HCT 37-PLT 338. Chemistries: NA 136-K4.3-CL 102-CO2 30-BUN 14-CRE 0.94-GLU 90 Discharge weight 59.1 kg, BMI 26.4 Hospital course: Hospital course: Noted to be hypoxic 88% on arrival, CT showed moderate right pleural effusion with compressive atelectasis. In addition patient was found to have left renal infarct as well as splenic infarcts which were considered to be embolic. Patient's INR was subtherapeutic on the arrival. Thoracentesis as above, cytology was negative for malignancy, concern possibly due to rheumatoid arthritis. Patient is to have follow-up with pulmonology and wants to transfer care to Dr. Mariee. She did develop atrial fib with rapid ventricular rate during the hospital course, which was treated temporarily with diltiazem drip, metoprolol was increased from 25 100 mg twice daily and amiodarone 200 mg twice daily was added with successful rate control. New medications: Discharge planning follow-up: Acute respiratory failure with hypoxia Acute exacerbation chronic pleural effusion Right splenic infarct Decompensated HFpEF Cystic renal mass Paroxysmal atrial fibrillation Leukocytosis Status post thoracentesis Mitral valve annular calcification, 1-2+ insufficiency stable Aortic valve diffuse calcification stable COPD Hypertension Subtherapeutic INR due to holding Coumadin for thoracentesis Medication reconciliation: Metoprolol tartrate 100 mg p.o. twice daily #60/0 Amiodarone 200 mg p.o. twice daily #60/0 Change medications: Warfarin 4 mg p.o. daily Discontinued medications: Warfarin 2 mg Metoprolol tartrate 75 mg p.o. twice daily Continue medications: Multivitamin 1 tablet daily Calcium carbonate 600 mg (1500 mg) tablet 1 p.o. daily Furosemide 40 mg p.o. twice daily Handicap placard Albuterol sulfate 90 MCG per actuation HFA inhaler: 2 puffs every 4 hours as needed shortness of breath Omeprazole 40 mg capsule daily AC Potassium chloride 20 mEq ER: 1 tablet twice daily Diltiazem 2040 mg capsule extended release 24-hour: 1 capsule daily Referral/follow-up: Dr. Flaquito Mariee pulmonology 2 weeks Thoracic aorta atherosclerosis 03/23/2020 0 09/23/2020 Chronic systolic heart failure 11/21/2019 0 09/23/2020 Fatigue 11/24/2016 10/10/2017 Atrial fibrillation 01/14/2014 10/10/2017 Multiple thyroid nodules 03/03/2011 021 Hypertension 01/19/2011 06/23/2015 Esophagitis, unspecified 01/13/2009 018 Gastrointestinal malfunction arising from mental factors 12/09/2008 10/10/2017 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 Dysphagia, unspecified(787.20) 1 07/09/2017 documented as of this encounter (statuses as of 10/14/2022) [facility]11-15-2022 History of Past illness Narrative* Problem Noted Date Diagnosed Date Resolved Date Renal infarct 04/19/2022 07/26/2022 Overview: Has seen Dr. Chaney. Needs to just follow up prn. Dehydration 02/03/2022 11/08/2022 Gram-negative bacteremia 02/03/202211/2022 Hypophosphatemia 02/03/2022 11/08/2022 Pneumonia 02/03/2022 11/08/2022 Pyothorax without fistula 02/03/2022 Pleural effusion 01/31/2022 04/19/2022 Abnormal levels of other serum enzymes 11/11/2021 11/08/2022 Elevated liver enzymes 11/11/202111/08 Neoplasm of uncertain behavior of left kidney 09/24/19 22 11/08/2022 Shortness of breath 09/16/2021 11/09/19 23 Acute respiratory failure 07/22/2021 Chronic passive congestion of liver 07/22/2021 11/08/2022 Cyst of kidney, acquired 07/22/202111/2022 Ischemia and infarction of kidney 07/22/2021 11/08/2022 Overview: Has seen Dr Calvin Leukocytosis 07/22/2021 11/08/2022 Encounter for support and co ordination of transition of care 07/20/2021 07/26/2022 Overview: Facility: [facility] Date of admission 07/14/2021 Date of discharge Prehospital work-up: Presented to 07/14/2021 to [facility] ED complaining of left-sided abdominal pain with multiple symptoms including cough, myalgias, nasal congestion, low dietary intake due to concerns that would aggravate stomach ache. Patient was exposed to Covid 2 weeks prior, unvaccinated. Vital signs: 98.3 J-[id number]/102-93% RA. Exam description: Tired, alert and nontoxic, normal respiratory effort, mild tenderness left upper quadrant without rebound or guarding. WBC 20.3-Hgb 14-HCT 43-PLT 388-Ig percent 0.5-absolute neutrophil 17 point 3H Lactic acid 1.2. Sodium 131-K3.8-CL 95-CO2 29.0, glucose 133, otherwise CMP is within normal limits. Calcium 9.1. Liver panel: Total bili 1.10H-AST 180-ALT 95-ALP 126-total protein 8.3-Albumin three-point 3-5 and 50.0-lipase 74. 07/14/2021 CT abdomen pelvis: Dilated main and bilateral pulmonary arteries suggesting pulmonary hypertension, moderate volume right pleural effusion with compressive atelectasis at right lower lobe, moderate cardiomegaly with dilated right ventricle and reflux of contrast in IVC suggesting right heart dysfunction. Heterogenous enhancement and decreased density of the left kidney new since CTA on 01/03/2014- may represent renal ischemia/infarction versus pyelonephritis, neoplasm not ruled out. 2.9 superior and lateral left renal cyst with delayed peripheral nodular enhancement suspicious for cystic renal neoplasm, MRI/CT with IV contrast recommended. Splenic infarction, given left renal and splenic infarctions embolic etiology should be considered. Patient was given IV fluids due to tachycardia, patient's anticoagulants were held for thoracentesis, so there were concerns about possible pulmonary emboli, CT was therefore ordered with negative findings. Case was discussed with hospitalist and decision to admit Patient was admitted under Dr. Maddie Nascimento: Acute problem list and plan: 1. Acute hypoxic respiratory failure secondary right-sided pleural effusion with decompensated RV dysfunction, elevated leukocytosis with recent hospitalization could have concurrent pneumonia: We will check strep pneumo, Legionella antigens, flu, RSV, thoracentesis ordered with fluid studies, O2 as needed, continue aerosol, leukocytosis coverage ordered with IV antibiotics. 2. Splenic/renal infarct: Suspected to be related to subtherapeutic INR and atrial fibrillation, heparin drip was started, patient had prior complications with Xarelto, has been on Coumadin but consider trial of Eliquis as an alternative. Echocardiogram ordered. 3. Leukocytosis: Cultures were ordered, empiric antibiotics, lactic acid normal. 4. Recurrent right-sided pleural effusion: May be related to pulmonary artery hypertension, CT shows marked dilatation of central vasculature without PE, echocardiogram ordered. Started on Lasix drip. 5. Decompensated right-sided heart failure: Lasix drip started, follow BMP, sodium restriction, consider right-sided heart cath, pulmonary medicine consult. 6. Cystic renal mass: Concerning for malignancy, abdominal MRI ordered, consult urology 7. PAF: Current atrial fibrillation, heparin drip started, again echocardiogram ordered to check for embolic sources, diltiazem and metoprolol continued. 8. GERD: Continue omeprazole 9. DVT prophylaxis: Heparin drip CODE STATUS: DNR CCA without intubation 07/14/[address] Malika Jain neurologist: increasing left upper quadrant and flank pain, atypical left renal cyst. Assessment and plan: Right renal cyst, renal infarction: No plans for intervention of 3 cm suspicious lesion during this admission, felt he could be done outpatient. 07/15/2021 consultation open soaper tender Dr. Dwayne Garcia: Assessment right pleural effusion: Continue diuretic therapy, empiric antimicrobials, thoracentesis recommended, eventual right heart cath work and secondary work-up for pH outpatient basis. 07/15/2021 echocardiogram: LV size and LV SF WNL, EF 60 to 65%. RV normal size and RV SF EF. Left atrium moderately enlarged, right atrium mildly enlarged. MV: Moderate mitral annular calcification, 1-2+ MA. TV: Normal. AV: Diffuse aortic valve calcification. PV: Not well visualized. Great vessels and aortic root normal. No pericardial effusion. No significant changes from prior echo. 07/15/2021 MR abdomen with and without IV contrast: Large right pleural effusion, moderate cardiomegaly, distended inferior vena cava and hepatic veins indicative of right-sided heart failure. Scarring of spleen related to old ischemia trauma, multiple nonenhancing lesions in the left kidney identified with contrast which may be related to inflammatory or infectious process 07/16/2021: Ultrasound-guided thoracentesis Dr. Gary Reyes: 670 mL of blood-tinged cloudy fluid drained and sent for analysis Chest x-ray following: Status post right thoracentesis no evidence of hemothorax, residual blunting of right costophrenic angle. Pertinent lab summary: 07/14/2021 blood cultures x2 sites showed no growth over 5 days. Urine clean catch for Legionella and Streptococcus pneumonia both negative. Nasal swab for rapid RSV and influenza as well as SARS Covid-2 all negative. 07/22/2021 WBC 10.2-Hgb 12.1-HCT 37-PLT 338. Chemistries: NA 136-K4.3-CL 102-CO2 30-BUN 14-CRE 0.94-GLU 90 Discharge weight 59.1 kg, BMI 26.4 Hospital course: Hospital course: Noted to be hypoxic 88% on arrival, CT showed moderate right pleural effusion with compressive atelectasis. In addition patient was found to have left renal infarct as well as splenic infarcts which were considered to be embolic. Patient's INR was subtherapeutic on the arrival. Thoracentesis as above, cytology was negative for malignancy, concern possibly due to rheumatoid arthritis. Patient is to have follow-up with pulmonology and wants to transfer care to Dr. Mariee. She did develop atrial fib with rapid ventricular rate during the hospital course, which was treated temporarily with diltiazem drip, metoprolol was increased from 25 100 mg twice daily and amiodarone 200 mg twice daily was added with successful rate control. New medications: Discharge planning follow-up: Acute respiratory failure with hypoxia Acute exacerbation chronic pleural effusion Right splenic infarct Decompensated HFpEF Cystic renal mass Paroxysmal atrial fibrillation Leukocytosis Status post thoracentesis Mitral valve annular calcification, 1-2+ insufficiency stable Aortic valve diffuse calcification stable COPD Hypertension Subtherapeutic INR due to holding Coumadin for thoracentesis Medication reconciliation: Metoprolol tartrate 100 mg p.o. twice daily #60/0 Amiodarone 200 mg p.o. twice daily #60/0 Change medications: Warfarin 4 mg p.o. daily Discontinued medications: Warfarin 2 mg Metoprolol tartrate 75 mg p.o. twice daily Continue medications: Multivitamin 1 tablet daily Calcium carbonate 600 mg (1500 mg) tablet 1 p.o. daily Furosemide 40 mg p.o. twice daily Handicap placard Albuterol sulfate 90 MCG per actuation HFA inhaler: 2 puffs every 4 hours as needed shortness of breath Omeprazole 40 mg capsule daily AC Potassium chloride 20 mEq ER: 1 tablet twice daily Diltiazem 2040 mg capsule extended release 24-hour: 1 capsule daily Referral/follow-up: Dr. Flaquito Mariee pulmonology 2 weeks Hypokalemia 07/09/2021 11/08/2022 Hyponatremia 07/09/2021 11/08/2022 Hypoxemia 06/23/2021 11/08/2022 Hypoxia 06/23/2021 11/08/2022 Pleural effusion, right 05/05/202011/2022 Overview: Now seeing Dr. Mariee Thoracic aorta atherosclerosis 03/23/2020 09/23/2020 Chronic systolic heart failure 11/21/2019 09/23/2020 Fatigue 11/24/2016 10/10/2017 Atrial fibrillation 01/14/2014 10/11/19 18 Centrilobular emphysema 01/14/201411/2022 Multiple thyroid nodules 03/03/2011 Hypertension 01/19/2011 06/23/2015 Esophagitis, unspecified 01/13/200901/2018 Gastrointestinal malfunction arising from mental factors 12/09/2008 10/10/2017 Nontoxic multinodular goiter 12/08/2008 05/08/2018 Dysphagia, unspecified(787.20) 05/08/2018 documented as of this encounter (statuses as of 04/09/2023) [facility]11-15-2022 History of Past illness Narrative* Problem Noted Date Diagnosed Date Resolved Date Renal infarct 04/19/2022 07/26/2022 Overview: Has seen Dr. Chaney. Needs to just follow up prn. Dehydration 02/03/2022 11/08/2022 Gram-negative bacteremia 02/03/202211/2022 Hypophosphatemia 02/03/2022 11/08/2022 Pneumonia 02/03/2022 11/08/2022 Pyothorax without fistula 02/03/2022 Pleural effusion 01/31/2022 04/19/2022 Abnormal levels of other serum enzymes 11/11/2021 11/08/2022 Elevated liver enzymes 11/11/202111/08 Neoplasm of uncertain behavior of left kidney 09/24/19 22 11/08/2022 Shortness of breath 09/16/2021 11/09/19 23 Acute respiratory failure 07/22/2021 Chronic passive congestion of liver 07/22/2021 11/08/2022 Cyst of kidney, acquired 07/22/202111/2022 Ischemia and infarction of kidney 07/22/2021 11/08/2022 Overview: Has seen Dr Calvin Leukocytosis 07/22/2021 11/08/2022 Encounter for support and co ordination of transition of care 07/20/2021 07/26/2022 Overview: Facility: [facility] Date of admission 07/14/2021 Date of discharge Prehospital work-up: Presented to 07/14/2021 to [facility] ED complaining of left-sided abdominal pain with multiple symptoms including cough, myalgias, nasal congestion, low dietary intake due to concerns that would aggravate stomach ache. Patient was exposed to Covid 2 weeks prior, unvaccinated. Vital signs: 98.3 N-[id number]/102-93% RA. Exam description: Tired, alert and nontoxic, normal respiratory effort, mild tenderness left upper quadrant without rebound or guarding. WBC 20.3-Hgb 14-HCT 43-PLT 388-Ig percent 0.5-absolute neutrophil 17 point 3H Lactic acid 1.2. Sodium 131-K3.8-CL 95-CO2 29.0, glucose 133, otherwise CMP is within normal limits. Calcium 9.1. Liver panel: Total bili 1.10H-AST 180-ALT 95-ALP 126-total protein 8.3-Albumin three-point 3-5 and 50.0-lipase 74. 07/14/2021 CT abdomen pelvis: Dilated main and bilateral pulmonary arteries suggesting pulmonary hypertension, moderate volume right pleural effusion with compressive atelectasis at right lower lobe, moderate cardiomegaly with dilated right ventricle and reflux of contrast in IVC suggesting right heart dysfunction. Heterogenous enhancement and decreased density of the left kidney new since CTA on 01/03/2014- may represent renal ischemia/infarction versus pyelonephritis, neoplasm not ruled out. 2.9 superior and lateral left renal cyst with delayed peripheral nodular enhancement suspicious for cystic renal neoplasm, MRI/CT with IV contrast recommended. Splenic infarction, given left renal and splenic infarctions embolic etiology should be considered. Patient was given IV fluids due to tachycardia, patient's anticoagulants were held for thoracentesis, so there were concerns about possible pulmonary emboli, CT was therefore ordered with negative findings. Case was discussed with hospitalist and decision to admit Patient was admitted under Dr. Maddie Nascimento: Acute problem list and plan: 1. Acute hypoxic respiratory failure secondary right-sided pleural effusion with decompensated RV dysfunction, elevated leukocytosis with recent hospitalization could have concurrent pneumonia: We will check strep pneumo, Legionella antigens, flu, RSV, thoracentesis ordered with fluid studies, O2 as needed, continue aerosol, leukocytosis coverage ordered with IV antibiotics. 2. Splenic/renal infarct: Suspected to be related to subtherapeutic INR and atrial fibrillation, heparin drip was started, patient had prior complications with Xarelto, has been on Coumadin but consider trial of Eliquis as an alternative. Echocardiogram ordered. 3. Leukocytosis: Cultures were ordered, empiric antibiotics, lactic acid normal. 4. Recurrent right-sided pleural effusion: May be related to pulmonary artery hypertension, CT shows marked dilatation of central vasculature without PE, echocardiogram ordered. Started on Lasix drip. 5. Decompensated right-sided heart failure: Lasix drip started, follow BMP, sodium restriction, consider right-sided heart cath, pulmonary medicine consult. 6. Cystic renal mass: Concerning for malignancy, abdominal MRI ordered, consult urology 7. PAF: Current atrial fibrillation, heparin drip started, again echocardiogram ordered to check for embolic sources, diltiazem and metoprolol continued. 8. GERD: Continue omeprazole 9. DVT prophylaxis: Heparin drip CODE STATUS: DNR CCA without intubation 07/14/[address] Malika Jain neurologist: increasing left upper quadrant and flank pain, atypical left renal cyst. Assessment and plan: Right renal cyst, renal infarction: No plans for intervention of 3 cm suspicious lesion during this admission, felt he could be done outpatient. 07/15/2021 consultation open soaper tender Dr. Dwayne Garcia: Assessment right pleural effusion: Continue diuretic therapy, empiric antimicrobials, thoracentesis recommended, eventual right heart cath work and secondary work-up for pH outpatient basis. 07/15/2021 echocardiogram: LV size and LV SF WNL, EF 60 to 65%. RV normal size and RV SF EF. Left atrium moderately enlarged, right atrium mildly enlarged. MV: Moderate mitral annular calcification, 1-2+ MA. TV: Normal. AV: Diffuse aortic valve calcification. PV: Not well visualized. Great vessels and aortic root normal. No pericardial effusion. No significant changes from prior echo. 07/15/2021 MR abdomen with and without IV contrast: Large right pleural effusion, moderate cardiomegaly, distended inferior vena cava and hepatic veins indicative of right-sided heart failure. Scarring of spleen related to old ischemia trauma, multiple nonenhancing lesions in the left kidney identified with contrast which may be related to inflammatory or infectious process 07/16/2021: Ultrasound-guided thoracentesis Dr. Gary Reyes: 670 mL of blood-tinged cloudy fluid drained and sent for analysis Chest x-ray following: Status post right thoracentesis no evidence of hemothorax, residual blunting of right costophrenic angle. Pertinent lab summary: 07/14/2021 blood cultures x2 sites showed no growth over 5 days. Urine clean catch for Legionella and Streptococcus pneumonia both negative. Nasal swab for rapid RSV and influenza as well as SARS Covid-2 all negative. 07/22/2021 WBC 10.2-Hgb 12.1-HCT 37-PLT 338. Chemistries: NA 136-K4.3-CL 102-CO2 30-BUN 14-CRE 0.94-GLU 90 Discharge weight 59.1 kg, BMI 26.4 Hospital course: Hospital course: Noted to be hypoxic 88% on arrival, CT showed moderate right pleural effusion with compressive atelectasis. In addition patient was found to have left renal infarct as well as splenic infarcts which were considered to be embolic. Patient's INR was subtherapeutic on the arrival. Thoracentesis as above, cytology was negative for malignancy, concern possibly due to rheumatoid arthritis. Patient is to have follow-up with pulmonology and wants to transfer care to Dr. Mariee. She did develop atrial fib with rapid ventricular rate during the hospital course, which was treated temporarily with diltiazem drip, metoprolol was increased from 25 100 mg twice daily and amiodarone 200 mg twice daily was added with successful rate control. New medications: Discharge planning follow-up: Acute respiratory failure with hypoxia Acute exacerbation chronic pleural effusion Right splenic infarct Decompensated HFpEF Cystic renal mass Paroxysmal atrial fibrillation Leukocytosis Status post thoracentesis Mitral valve annular calcification, 1-2+ insufficiency stable Aortic valve diffuse calcification stable COPD Hypertension Subtherapeutic INR due to holding Coumadin for thoracentesis Medication reconciliation: Metoprolol tartrate 100 mg p.o. twice daily #60/0 Amiodarone 200 mg p.o. twice daily #60/0 Change medications: Warfarin 4 mg p.o. daily Discontinued medications: Warfarin 2 mg Metoprolol tartrate 75 mg p.o. twice daily Continue medications: Multivitamin 1 tablet daily Calcium carbonate 600 mg (1500 mg) tablet 1 p.o. daily Furosemide 40 mg p.o. twice daily Handicap placard Albuterol sulfate 90 MCG per actuation HFA inhaler: 2 puffs every 4 hours as needed shortness of breath Omeprazole 40 mg capsule daily AC Potassium chloride 20 mEq ER: 1 tablet twice daily Diltiazem 2040 mg capsule extended release 24-hour: 1 capsule daily Referral/follow-up: Dr. Flaquito Mariee pulmonology 2 weeks Hypokalemia 07/09/2021 11/08/2022 Hyponatremia 07/09/2021 11/08/2022 Hypoxemia 06/23/2021 11/08/2022 Hypoxia 06/23/2021 11/08/2022 Pleural effusion, right 05/05/202011/2022 Overview: Now seeing Dr. Mariee Thoracic aorta atherosclerosis 03/23/2020 09/23/2020 Chronic systolic heart failure 11/21/2019 09/23/2020 Fatigue 11/24/2016 10/10/2017 Atrial fibrillation 01/14/2014 10/11/19 18 Centrilobular emphysema 01/14/201411/2022 Multiple thyroid nodules 03/03/2011 Hypertension 01/19/2011 06/23/2015 Esophagitis, unspecified 01/13/200901/2018 Gastrointestinal malfunction arising from mental factors 12/09/2008 10/10/2017 Nontoxic multinodular goiter 12/08/2008 05/08/2018 Dysphagia, unspecified(787.20) 05/08/2018 documented as of this encounter (statuses as of 04/09/2023) [facility]11-15-2022 History of Past illness Narrative* Problem Noted Date Diagnosed Date Resolved Date Renal infarct 04/19/2022 07/26/2022 Overview: Has seen Dr. Chaney. Needs to just follow up prn. Dehydration 02/03/2022 11/08/2022 Gram-negative bacteremia 02/03/202211/2022 Hypophosphatemia 02/03/2022 11/08/2022 Pneumonia 02/03/2022 11/08/2022 Pyothorax without fistula 02/03/2022 Pleural effusion 01/31/2022 04/19/2022 Abnormal levels of other serum enzymes 11/11/2021 11/08/2022 Elevated liver enzymes 11/11/202111/08 Neoplasm of uncertain behavior of left kidney 09/24/19 22 11/08/2022 Shortness of breath 09/16/2021 11/09/19 Acute respiratory failure 07/22/2021 Chronic passive congestion of liver 07/22/2021 11/08/2022 Cyst of kidney, acquired 07/22/202111/2022 Ischemia and infarction of kidney 07/22/2021 11/08/2022 Overview: Has seen Dr Calvin Leukocytosis 07/22/2021 11/08/2022 Encounter for support and co ordination of transition of care 07/20/2021 07/26/2022 Overview: Facility: [facility] Date of admission 07/14/2021 Date of discharge Prehospital work-up: Presented to 07/14/2021 to [facility] ED complaining of left-sided abdominal pain with multiple symptoms including cough, myalgias, nasal congestion, low dietary intake due to concerns that would aggravate stomach ache. Patient was exposed to Covid 2 weeks prior, unvaccinated. Vital signs: 98.3 B-614-31-143/102-93% RA. Exam description: Tired, alert and nontoxic, normal respiratory effort, mild tenderness left upper quadrant without rebound or guarding. WBC 20.3-Hgb 14-HCT 43-PLT 388-Ig percent 0.5-absolute neutrophil 17 point 3H Lactic acid 1.2. Sodium 131-K3.8-CL 95-CO2 29.0, glucose 133, otherwise CMP is within normal limits. Calcium 9.1. Liver panel: Total bili 1.10H-AST 180-ALT 95-ALP 126-total protein 8.3-Albumin three-point 3-5 and 50.0-lipase 74. 07/14/2021 CT abdomen pelvis: Dilated main and bilateral pulmonary arteries suggesting pulmonary hypertension, moderate volume right pleural effusion with compressive atelectasis at right lower lobe, moderate cardiomegaly with dilated right ventricle and reflux of contrast in IVC suggesting right heart dysfunction. Heterogenous enhancement and decreased density of the left kidney new since CTA on 01/03/2014- may represent renal ischemia/infarction versus pyelonephritis, neoplasm not ruled out. 2.9 superior and lateral left renal cyst with delayed peripheral nodular enhancement suspicious for cystic renal neoplasm, MRI/CT with IV contrast recommended. Splenic infarction, given left renal and splenic infarctions embolic etiology should be considered. Patient was given IV fluids due to tachycardia, patient's anticoagulants were held for thoracentesis, so there were concerns about possible pulmonary emboli, CT was therefore ordered with negative findings. Case was discussed with hospitalist and decision to admit Patient was admitted under Dr. Maddie Nascimento: Acute problem list and plan: 1. Acute hypoxic respiratory failure secondary right-sided pleural effusion with decompensated RV dysfunction, elevated leukocytosis with recent hospitalization could have concurrent pneumonia: We will check strep pneumo, Legionella antigens, flu, RSV, thoracentesis ordered with fluid studies, O2 as needed, continue aerosol, leukocytosis coverage ordered with IV antibiotics. 2. Splenic/renal infarct: Suspected to be related to subtherapeutic INR and atrial fibrillation, heparin drip was started, patient had prior complications with Xarelto, has been on Coumadin but consider trial of Eliquis as an alternative. Echocardiogram ordered. 3. Leukocytosis: Cultures were ordered, empiric antibiotics, lactic acid normal. 4. Recurrent right-sided pleural effusion: May be related to pulmonary artery hypertension, CT shows marked dilatation of central vasculature without PE, echocardiogram ordered. Started on Lasix drip. 5. Decompensated right-sided heart failure: Lasix drip started, follow BMP, sodium restriction, consider right-sided heart cath, pulmonary medicine consult. 6. Cystic renal mass: Concerning for malignancy, abdominal MRI ordered, consult urology 7. PAF: Current atrial fibrillation, heparin drip started, again echocardiogram ordered to check for embolic sources, diltiazem and metoprolol continued. 8. GERD: Continue omeprazole 9. DVT prophylaxis: Heparin drip CODE STATUS: DNR CCA without intubation 07/14/[address] Malika Jain neurologist: increasing left upper quadrant and flank pain, atypical left renal cyst. Assessment and plan: Right renal cyst, renal infarction: No plans for intervention of 3 cm suspicious lesion during this admission, felt he could be done outpatient. 07/15/2021 consultation open soaper tender Dr. Dwayne Garcia: Assessment right pleural effusion: Continue diuretic therapy, empiric antimicrobials, thoracentesis recommended, eventual right heart cath work and secondary work-up for pH outpatient basis. 07/15/2021 echocardiogram: LV size and LV SF WNL, EF 60 to 65%. RV normal size and RV SF EF. Left atrium moderately enlarged, right atrium mildly enlarged. MV: Moderate mitral annular calcification, 1-2+ MA. TV: Normal. AV: Diffuse aortic valve calcification. PV: Not well visualized. Great vessels and aortic root normal. No pericardial effusion. No significant changes from prior echo. 07/15/2021 MR abdomen with and without IV contrast: Large right pleural effusion, moderate cardiomegaly, distended inferior vena cava and hepatic veins indicative of right-sided heart failure. Scarring of spleen related to old ischemia trauma, multiple nonenhancing lesions in the left kidney identified with contrast which may be related to inflammatory or infectious process 07/16/2021: Ultrasound-guided thoracentesis Dr. Gary Reyes: 670 mL of blood-tinged cloudy fluid drained and sent for analysis Chest x-ray following: Status post right thoracentesis no evidence of hemothorax, residual blunting of right costophrenic angle. Pertinent lab summary: 07/14/2021 blood cultures x2 sites showed no growth over 5 days. Urine clean catch for Legionella and Streptococcus pneumonia both negative. Nasal swab for rapid RSV and influenza as well as SARS Covid-2 all negative. 07/22/2021 WBC 10.2-Hgb 12.1-HCT 37-PLT 338. Chemistries: NA 136-K4.3-CL 102-CO2 30-BUN 14-CRE 0.94-GLU 90 Discharge weight 59.1 kg, BMI 26.4 Hospital course: Hospital course: Noted to be hypoxic 88% on arrival, CT showed moderate right pleural effusion with compressive atelectasis. In addition patient was found to have left renal infarct as well as splenic infarcts which were considered to be embolic. Patient's INR was subtherapeutic on the arrival. Thoracentesis as above, cytology was negative for malignancy, concern possibly due to rheumatoid arthritis. Patient is to have follow-up with pulmonology and wants to transfer care to Dr. Mariee. She did develop atrial fib with rapid ventricular rate during the hospital course, which was treated temporarily with diltiazem drip, metoprolol was increased from 25 100 mg twice daily and amiodarone 200 mg twice daily was added with successful rate control. New medications: Discharge planning follow-up: Acute respiratory failure with hypoxia Acute exacerbation chronic pleural effusion Right splenic infarct Decompensated HFpEF Cystic renal mass Paroxysmal atrial fibrillation Leukocytosis Status post thoracentesis Mitral valve annular calcification, 1-2+ insufficiency stable Aortic valve diffuse calcification stable COPD Hypertension Subtherapeutic INR due to holding Coumadin for thoracentesis Medication reconciliation: Metoprolol tartrate 100 mg p.o. twice daily #60/0 Amiodarone 200 mg p.o. twice daily #60/0 Change medications: Warfarin 4 mg p.o. daily Discontinued medications: Warfarin 2 mg Metoprolol tartrate 75 mg p.o. twice daily Continue medications: Multivitamin 1 tablet daily Calcium carbonate 600 mg (1500 mg) tablet 1 p.o. daily Furosemide 40 mg p.o. twice daily Handicap placard Albuterol sulfate 90 MCG per actuation HFA inhaler: 2 puffs every 4 hours as needed shortness of breath Omeprazole 40 mg capsule daily AC Potassium chloride 20 mEq ER: 1 tablet twice daily Diltiazem 2040 mg capsule extended release 24-hour: 1 capsule daily Referral/follow-up: Dr. Flaquito Mariee pulmonology 2 weeks Hypokalemia 07/09/2021 11/08/2022 Hyponatremia 07/09/2021 11/08/2022 Hypoxemia 06/23/2021 11/08/2022 Hypoxia 06/23/2021 11/08/2022 Pleural effusion, right 05/05/2020 0611/2022 Overview: Now seeing Dr. Mariee Thoracic aorta atherosclerosis 03/23/2020 09/23/2020 Chronic systolic heart failure 11/21/2019 09/23/2020 Fatigue 11/24/2016 10/10/2017 Atrial fibrillation 01/14/2014 10/11/19 18 Centrilobular emphysema 01/14/201411/2022 Multiple thyroid nodules 03/03/2011 Hypertension 01/19/2011 06/23/2015 Esophagitis, unspecified 01/13/200901/2018 Gastrointestinal malfunction arising from mental factors 12/09/2008 10/10/2017 Nontoxic multinodular goiter 12/08/2008 05/08/2018 Dysphagia, unspecified(787.20) 05/08/2018 documented as of this encounter (statuses as of 04/09/2023) [facility]11-15-2022 History of Present illness Narrative* Wes Bonilla MD - 04/19/2022 11:57 AM EST Patient presents with: Follow Up HPI: Patient presents today for office visit for follow up. CHF: Recently saw Dr. Arriaga in March. No chest pain. No shortness of breath. No palpitations.No edema. A. Fib: Followed by Dr. Arriaga. Continues on Warfarin. No bleeding issues. Inr has been good. HTN: Checks BP at home. Stable. No chest pain or shortness of breath. No headaches. Occasional dizziness upon standing. GERD: Tolerating Omeprazole. No symptoms. Needs refill. PULM: sees Dr. Mariee on the 23 of May. He has been following her effusion. No cough or shortness of breath. She never did follow up with surgery when referred several times.for her thyroid nodule. No neck swelling. No pain. Will recheck, See last ov from [facility] in 03/15/22. AF, HFpEF c/o f/u on right pleural effusion, parapneumonia + Pateurella bacteremia. Completed antbiotics. Feeling pretty good most of the time. Denies feeling SOB. Activity about the same as usual. On pillow Energy level pretty good. Appetite good. Can't walk a block, has to stop to catch breath. Going a lot due to water pills. Bowels are moving. Has follow up with Dr. Mariee in [address] 01/26/2022 MEDICATIONS: Current Outpatient Medications Medication Sig metoprolol tartrate, short acting, (LOPRESSOR) 50 mg tablet Take 1 tablet by mouth twice daily. warfarin (COUMADIN) 4 mg tablet 4 mg on M, W, F, 2 mg all other days. (Patient taking differently: 4 mg on M, W, 2 mg all other days-pt started this dosing on 02/18/22.) amiodarone (PACERONE) 200 mg tablet Take 0.5 tablets by mouth once daily. dilTIAZem CD (CARDIZEM CD, CARTIA XT) 240 mg 24 hr capsule Take 240 mg by mouth once daily. furosemide (LASIX) 40 mg tablet Take 1 tablet by mouth twice daily. WALKER ROLLATOR SEAT WITH 6 WHEELS - RED Daily use R26.81 Gait instability (primary encounter diagnosis) potassium chloride 20 mEq TbER Take 1 tablet by mouth twice daily. omeprazole (PRILOSEC) 40 mg capsule Take 1 capsule by mouth once daily. albuterol HFA (PROVENTIL HFA, VENTOLIN HFA) 90 mcg/actuation inhaler Inhale 2 Puffs as instructed every 4 hours as needed. 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 MULTIVITAMIN ORAL Take 1 tablet by mouth once daily. No current facility-administered medications for this visit. ALLERGIES: ALLERGIES Allergen Reactions Crestor [Rosuvastat* Other: See Comments Myalgia. Ibuprofen Other: See Comments dizzy Prevnar 13 [Pneumoc* Rash Presumed reaction to Prevnar. Latex Rash Local contact rash. PAST MEDICAL HISTORY Diagnosis Date A-fib ([facility]) Class 1 congestive heart failure, unspecified failure chronicity, systolic (HCC) 11/21/2019 Dysphagia, unspecified(787.20) Esophageal reflux Esophagitis, unspecified Marfan's syndrome Moderate mitral regurgitation 06/18/2021 04/27/21 Echo at [facility]. Pleural effusion, right 05/05/2020 CXR 11/18/19 and 05/04/20. Unspecified essential hypertension PAST SURGICAL HISTORY Procedure Laterality Date COLONOSCOPY FLX DX W/COLLJ SPEC WHEN PFRMD 10/16/14 Colonoscopy EGD TRANSORAL BIOPSY SINGLE/MULTIPLE 01/13/09 ESOPHAGOGASTRODUODENOSCOPY TRANSORAL DIAGNOSTIC 10/16/14 EGD FNA WITH IMAGING 03/16/11 U/S FNA left mid/lower lobe thyroid nodule MAMMOGRAM BILATERAL August 2010? PAST SURGICAL HISTORY OF tubial pregnacy/tube removed PAST SURGICAL HISTORY OF eye surgery bilateral TOTAL ABDOMINAL HYSTERECT W/WO RMVL TUBE OVARY Hysterectomy, MICHOACANO FAMILY HISTORY Problem Relation Age of Onset Diabetes Mother Cancer Mother other (marfan syndrome) Mother GI Father ulcer Diabetes Sister other (marfan syndrome) Brother x2 Stroke Maternal Grandmother Hypertension Sister Hypertension Brother COPD Brother Emphysema COPD Daughter Emphysema Social History Tobacco Use Smoking status: Never Smokeless tobacco: Never Tobacco comments: Spouse smoked cigars in home until about 2003. Vaping Use Vaping Use: Never used Substance Use Topics Alcohol use: No Drug use: No Reviewed current medications, allergies, past medical history, surgical history, family history andsocial history today. REVIEW OF SYSTEMS No issues with appetite, urine or bowels. All other reviewed and negative other than HPI. HEALTH MAINTENANCE: Reviewed health maintenance issues today and recommended the following in detail. DEPRESSION ASSESSMENT Never done INFLUENZA-declines. VITALS: BP 110/56 Pulse 61 Ht 154.9 cm (5' 1 ) Wt 61.1 kg (134 lb 9.6 oz) SpO2 97% BMI 25.43 kg/m Weight is slightly up but was wearing coat etc. Last 4 Encounter Wt Readings: Date: Wt: 03/15/2022 59.4 kg (131 lb) 03/02/2022 58.5 kg (129 lb) 02/24/2022 58.1 kg (128 lb) 02/18/2022 58.1 kg (128 lb) PHYSICAL EXAMINATION: General appearance: Well appearing, alert, in no acute distress, well-hydrated, well nourished. Skin: Skin color, texture, turgor normal, no suspicious rashes or lesions Head: Normocephalic, no masses, lesions, tenderness or abnormalities Eyes: Anicteric sclera. Pupils are equally round and reactive to light. Extraocular movements are intact. Lungs: moving air well. Sounds as if has better aeration of right base than last I remember. No rhonchi or rales. Heart: RRR without murmur, gallop, or rubs. No ectopy Abdomen: Normal abdominal exam, Abdomen soft, non-tender. Bowel sounds normal. No masses, organomegaly Extremities: wearing her hose. No tenderness. Trace edema. ASSESSMENT/PLAN: 1. Hyperlipidemia, unspecified hyperlipidemia type - ICD9: 272.4, ICD10: E78.5 (primary diagnosis) - to be determined upon return of lab results - check labs. Will do nonfasting since here today and needs inr. 2. Hypertension, essential - ICD9: 401.9, ICD10: I10 - good control - Continue current medication(s) - Goal of BP <130/80 3. Moderate mitral regurgitation - ICD9: 424.0, ICD10: I34.0 - follow with cardiology 4. Paroxysmal atrial fibrillation (HCC) - ICD9: 427.31, ICD10: I48.0 - stable. 5. Pulmonary hypertension (HCC) - ICD9: 416.8, ICD10: I27.20 - per cardiology and pulmonary. 6. Lung nodule - ICD9: 793.11, ICD10: R91.1 - per pulmonary. 7. Pleural effusion - ICD9: 511.9, ICD10: J90 - per pulmonary 8. Thyroid nodule - ICD9: 241.0, ICD10: E04.1 - reinforced need to follow. Will recheck us to re assess - US THYROID/PARATHYROID 9. Marfan's syndrome - ICD9: 759.82, ICD10: Q87.40 - stable. 10. Chronic anticoagulation - ICD9: V58.61, ICD10: Z79.01 - doing well. 11. Prediabetes - ICD9: 790.29, ICD10: R73.03 - check labs. 12. History of polymyalgia rheumatica - ICD9: V13.59, ICD10: Z87.39 - no issue.s 13. GERD without esophagitis - ICD9: 530.81, ICD10: K21.9 - OMEPRAZOLE 40 MG CAPSULE,DELAYED RELEASE 14. Renal infarct (HCC) - ICD9: 593.81, ICD10: N28.0 - no follow up needed. Wes Bonilla MD RTO in three months or prn [facility] History of Present illness Narrative* Elisabeth Canchola RN - 04/19/2022 9:38 AM EST PRIMARY CARE COORDINATION QUICK NOTE Provider Action/FYI Patient scheduled to see pcp today. Defer outreach one week. Patient identified by name and date . documented in this [facility]Reg[facility] History of Present illness Narrative* Elisabeth Canchola RN - 04/05/2022 12:06 PM EDT INSIGHT CDM TELEPHONIC OUTREACH Provider Action/FYI: Patient returned call to this nurse, reported she is doing good, has chest xray completed today Hernandez Mariee. Patient states she has not yet called cardiology office in regards to increased Lasix, and has not increased Lasix. (see previous outreach encounter) Patient denies edema, sob at rest, laying flat or with activity. Patient has cardiology follow up labs due around 04/19 Patient had no further questions, concerns, needs at this time. Contact made with patient: Yes Patient identified by name and . Discussed care with patient It s nice talking to you again. As a reminder, this is our bi-weekly check-in where I will be asking you questions about your health. This will only take a few minutes of your time. Is this a good time? Yes Symptoms What Chronic Disease(s) does the patient have: COPD Do you check your blood pressures at home? Yes, Enter readings: 118/60's Do you have new or worse shortness of breath with activity? No Do you have new or worsening cough? No Do you have new or worsening wheezing? No Do you need to use your rescue (Albuterol) inhaler or nebulizer more often than normal? No Are you having any other symptoms that your PCP needs to know about? No Symptom Escalation The patient required an escalation for symptom(s)? No Medications Do you have any questions about taking your medication or which medications you should be on? No Do you need any medication refills at this time, including any of the medications you might take only when needed? No Social We would like to make sure you have what you need so that your basic needs are met- including your personal safety, food, housing and medications? Would you like to speak with a social work team supervisor to help give you support for any of these needs? No It can be normal to feel anxious or down during a time like this. Would you like to talk to a mental health professional about how you have been feeling? No Closing Thank you for taking the time to talk with me today. We want to work with you to ensure that we arekeeping your medical condition(s) well-controlled and to keep you healthy and out of the doctor's office or hospital. It s also not too late for me to sign you up for automated weekly questionnaires through [employer]. This is an easy way for us to stay connected each week. Are you interested? No, I understand. We can always sign you up in the future if you change your mind. Just as a reminder, will continue to call you every other week to check in on your health. Our calls should take 10-15 minutes or less. Remember, if you have concerns in between our calls, please call your PCP's office right away. Thank you. Enter next patient outreach date for two weeks on the same day of the week as today in the Track PtOutreach and End outreach. * Elisabeth Canchola RN - 04/05/2022 12:02 PM EDT INSIGHT CDM TELEPHONIC OUTREACH Provider Action/FYI: Contact made with patient: No - Unable to leave message Entered next patient outreach date for the following business day, if third call please enter next outreach date for one week in the Track Pt. Outreach - End Outreach documented in this encounterReg[facility] History of Present illness Narrative* Jason Gallegos DO - 03/29/2022 3:06 PM EDT Agree with below Jason Gallegos DO * Yanely Posadas RN - 03/29/2022 2:41 PM EDT patient had inr completed at [facility] patients inr is 2.1 (patients inr range is 2.0-3.0) patient is currently taking 4mg Mon,Tues,Wed and 2mg all other days patients last dose change was on 03/15/22 due to a low level of 1.8 (dose at that time was 4mg Mon,Wed and 2mg all other days) patient has had no changes in medication except for coumadin an no missed doses and no change in diet Advised patient to continue on the same dose(s) and that they would only be contacted regarding dosage and follow up instructions after review with provider, if a change is needed. Written instructions given and patient verbalized understanding. Presently scheduled in 2 weeks (04/12/22) for follow up INR since this is the first normal reading since dose change documented in this encounterReg[facility] History of Present illness Narrative* Elisabeth Canchola RN - 03/24/2022 10:49 AM EDT INSIGHT CDM TELEPHONIC OUTREACH Provider Action/FYI: Patient reports she is doing good, was seen by cardiology 03/08, had labs completed, states they wanted her to increase Lasix to 80 mg twice daily from 40 mg twice daily, along with increasing Potassium to 40 meq twice daily from 20 meq twice daily, then have repeat labs in 6 weeks. Patient states she has not yet increased as she is already running to the bathroom all day and fourtimes at night, and she is worried about her kidneys. Advised patient to please reach out to cardiology office. Patient scheduled for follow up chest xray for Dr Mariee in 2 weeks, states they will find out thenif there is fluid on her lungs. Encouraged patient again to reach out to cardiology office. Patient states her BP has been good , has not checked recently but at 03/15 OV BP 108/50 Patient had no further questions, concerns, needs at this time. Contact made with patient: Yes Patient identified by name and . Discussed care with patient It s nice talking to you again. As a reminder, this is our bi-weekly check-in where I will be asking you questions about your health. This will only take a few minutes of your time. Is this a good time? Yes Symptoms What Chronic Disease(s) does the patient have: COPD Do you check your blood pressures at home? Yes, Enter readings: see fyi Do you have new or worse shortness of breath with activity? No Do you have new or worsening cough? No Do you have new or worsening wheezing? No Do you need to use your rescue (Albuterol) inhaler or nebulizer more often than normal? No Are you having any other symptoms that your PCP needs to know about? No Symptom Escalation The patient required an escalation for symptom(s)? No Medications Do you have any questions about taking your medication or which medications you should be on? No Do you need any medication refills at this time, including any of the medications you might take only when needed? No Social We would like to make sure you have what you need so that your basic needs are met- including your personal safety, food, housing and medications? Would you like to speak with a social work team supervisor to help give you support for any of these needs? No It can be normal to feel anxious or down during a time like this. Would you like to talk to a mental health professional about how you have been feeling? No Closing Thank you for taking the time to talk with me today. We want to work with you to ensure that we arekeeping your medical condition(s) well-controlled and to keep you healthy and out of the doctor's office or hospital. It s also not too late for me to sign you up for automated weekly questionnaires through [employer]. This is an easy way for us to stay connected each week. Are you interested? No, I understand. We can always sign you up in the future if you change your mind. Just as a reminder, will continue to call you every other week to check in on your health. Our calls should take 10-15 minutes or less. Remember, if you have concerns in between our calls, please call your PCP's office right away. Thank you. Enter next patient outreach date for two weeks on the same day of the week as today in the Track PtOutreach and End outreach. documented in this [facility]10-18-2022 History of Present illness Narrative* Elisabeth Canchola RN - 03/22/2022 11:35 AM EDT INSIGHT CDM TELEPHONIC OUTREACH Provider Action/FYI: Contact made with patient: No - Left message Hello my name is Elisabeth Canchola RN your [employer] from the [facility] I am calling today for your bi-weekly check in. I am sorry I missed your call. I will reach out to you again tomorrow. (if the third call I will reach out to you again next week) Enter next patient outreach date for the following day using the Track Pt Outreach. End outreach. documented in this [facility]10-11-2022 Miscellaneous Notes* Telephone Encounter - Yanely Posadas RN - 03/15/2022 4:01 PM EDT patients orders for coumadin clinic inr's has at this time. new order has been pended for approval if possible so that patient can continue to get inr's completed thru the coumadin clinic. coumadin clinic nurse only needs called if order can not be approved. documented in this [facility]10-11-2022 Instructions* Patient Instructions* Myah Mehta PA-C - 03/15/2022 2:52 PM EDT Take extra 2mg coumadin today, recheck INR in 1 week. documented in this [facility]10-11-2022 History of Present illness Narrative* Myah Mehta PA-C - 03/15/2022 2:20 PM EDT 76 year old female with CHF, recurrent pleural effusion, AF, HFpEF c/o f/u on right pleural effusion, parapneumonia + Pateurella bacteremia. Completed antbiotics. Feeling pretty good most of the time. Denies feeling SOB. Activity about the same as usual. On pillow Energy level pretty good. Appetite good. Can't walk a block, has to stop to catch breath. Going a lot due to water pills. Bowels are moving. Has follow up with Dr. Mariee in [address] 01/26/2022 HISTORIES FAMILY HISTORY Problem Relation Age of Onset Diabetes Mother Cancer Mother other (marfan syndrome) Mother GI Father ulcer Diabetes Sister other (marfan syndrome) Brother x2 Stroke Maternal Grandmother Hypertension Sister Hypertension Brother COPD Brother Emphysema COPD Daughter Emphysema PAST MEDICAL HISTORY Diagnosis Date A-fib (HCC) Class 1 congestive heart failure, unspecified failure chronicity, systolic (HCC) 11/21/2019 Dysphagia, unspecified(787.20) Esophageal reflux Esophagitis, unspecified Marfan's syndrome Moderate mitral regurgitation 06/18/2021 04/27/21 Echo at [facility]. Pleural effusion, right 05/05/2020 CXR 11/18/19 and 05/04/20. Unspecified essential hypertension PAST SURGICAL HISTORY Procedure Laterality Date COLONOSCOPY FLX DX W/COLLJ SPEC WHEN PFRMD 10/16/14 Colonoscopy EGD TRANSORAL BIOPSY SINGLE/MULTIPLE 01/13/09 ESOPHAGOGASTRODUODENOSCOPY TRANSORAL DIAGNOSTIC 10/16/14 EGD FNA WITH IMAGING 03/16/11 U/S FNA left mid/lower lobe thyroid nodule MAMMOGRAM BILATERAL August 2010? PAST SURGICAL HISTORY OF tubial pregnacy/tube removed PAST SURGICAL HISTORY OF eye surgery bilateral TOTAL ABDOMINAL HYSTERECT W/WO RMVL TUBE OVARY Hysterectomy, MICHOACANO Social History Tobacco Use Smoking status: Never Smokeless tobacco: Never Tobacco comments: Spouse smoked cigars in home until about 2003. Vaping Use Vaping Use: Never used Substance Use Topics Alcohol use: No Drug use: No ACTIVE PROBLEM LIST Marfan's Syndrome Esophageal Reflux Hyperlipidemia History of Polymyalgia Rheumatica Centrilobular Emphysema (Hcc) Paroxysmal Atrial Fibrillation (Hcc) Hypertension, Essential Chronic Anticoagulation Lung Nodule Pleural Effusion, Right Thyroid Nodule Prediabetes Pulmonary Hypertension (Hcc) Moderate Mitral Regurgitation Encounter for Support and Coordination of Transition of Care Pleural Effusion Current Outpatient Medications Medication Sig Dispense Refill metoprolol tartrate, short acting, (LOPRESSOR) 50 mg tablet Take 1 tablet by mouth twice daily. 90 tablet 3 warfarin (COUMADIN) 4 mg tablet 4 mg on M, W, , 2 mg all other days. (Patient taking differently: 4 mg on M, W, 2 mg all other days-pt started this dosing on 02/18/22.) 90 tablet 3 amiodarone (PACERONE) 200 mg tablet Take 0.5 tablets by mouth once daily. dilTIAZem CD (CARDIZEM CD, CARTIA XT) 240 mg 24 hr capsule Take 240 mg by mouth once daily. furosemide (LASIX) 40 mg tablet Take 1 tablet by mouth twice daily. 180 tablet 3 WALKER ROLLATOR SEAT WITH 6 WHEELS - RED Daily use R26.81 Gait instability (primary encounter diagnosis) 1 Each 0 potassium chloride 20 mEq TbER Take 1 tablet by mouth twice daily. omeprazole (PRILOSEC) 40 mg capsule Take 1 capsule by mouth once daily. 90 capsule 3 albuterol HFA (PROVENTIL HFA, VENTOLIN HFA) 90 mcg/actuation inhaler Inhale 2 Puffs as instructed every 4 hours as needed. (Patient taking differently: Inhale 2 Puffs as instructed every 4 hours as needed for wheezing/shortness of breath.) 1 g 1 COMPOUNDED PRESCRIPTION Compression stockings 20-30mmHg 2 pair I83.813 Varicose veins of both lower extremities with pain 2 Each 3 CALCIUM CARBONATE (CALCIUM 600 ORAL) Take 1 tablet by mouth once daily. MULTIVITAMIN ORAL Take 1 tablet by mouth once daily. No current facility-administered medications for this visit. DEPRESSION ASSESSMENT Never done INFLUENZA(1) due on 02/03/2022 EXAM: BP 108/50 Pulse 88 Resp 20 Wt 59.4 kg (131 lb) SpO2 98% BMI 24.75 kg/m Pleasant adult woman in no acute distress. Alert and oriented all spheres. Normal affect and cognition. Speech normal. No deficits to learning or comprehension. Skin warm, dry, pink to lips and nailbeds. Normal turgor. Respirations regular and unlabored. Speaking in full sentences HEENT: NCAT. No scleral icterus or conjunctival injection. TM's clear. Nose and oropharynx free from injection or lesion. Oral membranes moist and pink. No cervical lymph nodes. Thyroid non-tender, no masses, or enlargement. Carotids pulses 2+/4+ without bruits. Neck veins are flat. Chest is normal shape. No dullness to percussion but egophony but vibration to 99 not palpable until lower 2/3 bilateral. Lungs are clear to all flores with good air exchange through out. HRRR without murmur or gallop. No lifts, heaves, or rubs. Extrem: no clubbing or cyanosis. Edema: none. Extremities are warm and pink with prompt capillary refill. ASSESSMENT/PLAN: 1. Paroxysmal atrial fibrillation (HCC) - ICD9: 427.31, ICD10: I48.0 (primary diagnosis) Stable rhythm, asymptomatic 2. Pleural effusion, right - ICD9: 511.9, ICD10: J90 Resolved. Unclear etiology. Date back to CT following pneumonia. ? Possible nidus of infection. Sees pulmonology. Might be helpful to have contrast CT or MRI to rule out underlying process. 3. Renal insufficiency - ICD9: 593.9, ICD10: N28.9 Stable as of 4. Acute heart failure with preserved ejection fraction (HCC) - ICD9: 428.9, ICD10: I50.31 No current sx. 5. Hypertension, essential - ICD9: 401.9, ICD10: I10 - good control - Continue current medication(s) - Recommended regular aerobic exercise. - Recommend home blood pressure monitoring, to bring results in on next visit - Goal of BP <130/80 6. Chronic anticoagulation - ICD9: V58.61, ICD10: Z79.01 Compliant with coumadin dosing, INR in therapeutic range 7. pasturella bactermia - ICD9: 790.7, ICD10: R78.81 resolved Myah Mehta PA-C documented in this encounterReg[facility]-04-2022 Miscellaneous Notes* Telephone Encounter - Tia Harding RN - 03/08/2022 11:12 AM EDT Eddie Bonilla [facility]22 with goals met. [facility] by your office. Thank you for following this home health pt. documented in this encounterRegency Hospital [facility]10-04-2022 Miscellaneous Notes* Telephone Encounter - Elisabeth Canchola RN - 03/08/2022 10:23 AM EDT PRIMARY CARE COORDINATION QUICK NOTE Provider Action/FYI: Patient requesting 50 mg tablets so she does not have to split them in half. Thank you. Patient phones requesting refills as follows: Requested Prescriptions Pending Prescriptions Disp Refills metoprolol tartrate, short acting, (LOPRESSOR) 50 mg tablet 90 tablet 3 Sig: Take 1 tablet by mouth twice daily. Please review and advise. Elisabeth Canchola RN Patient identified by name and date . documented in this encounterRegency Hospital [facility]10-04-2022 History of Present illness Narrative* Elisabeth Canchola RN - 03/08/2022 10:19 AM EDT INSIGHT CDM TELEPHONIC OUTREACH Provider Action/FYI: Patient reports she is doing good, has been experiencing a cough w/nasal congestion the past 2 days. Patient denies fever, chills, body aches. Advised patient to go to [facility] or ER if symptoms worsen and/or she develops sob, wheeze, fever, chills, body aches. Patient verbalized understanding. Patient had no further questions, concerns, needs at this time. Contact made with patient: Yes Patient identified by name and . Discussed care with patient It s nice talking to you again. As a reminder, this is our bi-weekly check-in where I will be asking you questions about your health. This will only take a few minutes of your time. Is this a good time? Yes Symptoms What Chronic Disease(s) does the patient have: COPD Do you check your blood pressures at home? Yes, Enter readings: Has been running good, have not checked yet today Do you have new or worse shortness of breath with activity? No Do you have new or worsening cough? No Do you have new or worsening wheezing? No Do you need to use your rescue (Albuterol) inhaler or nebulizer more often than normal? No Are you having any other symptoms that your PCP needs to know about? No Symptom Escalation The patient required an escalation for symptom(s)? No Medications Do you have any questions about taking your medication or which medications you should be on? No Do you need any medication refills at this time, including any of the medications you might take only when needed? No Social We would like to make sure you have what you need so that your basic needs are met- including your personal safety, food, housing and medications? Would you like to speak with a social work team supervisor to help give you support for any of these needs? No It can be normal to feel anxious or down during a time like this. Would you like to talk to a mental health professional about how you have been feeling? No Closing Thank you for taking the time to talk with me today. We want to work with you to ensure that we arekeeping your medical condition(s) well-controlled and to keep you healthy and out of the doctor's office or hospital. It s also not too late for me to sign you up for automated weekly questionnaires through [employer]. This is an easy way for us to stay connected each week. Are you interested? No, I understand. We can always sign you up in the future if you change your mind. Just as a reminder, will continue to call you every other week to check in on your health. Our calls should take 10-15 minutes or less. Remember, if you have concerns in between our calls, please call your PCP's office right away. Thank you. Enter next patient outreach date for two weeks on the same day of the week as today in the Track PtOutreach and End outreach. documented in this encounterRegency Hospital [facility]09-30-2022 Miscellaneous Notes* [facility] Agency DIETER - Tia Harding RN - 03/04/2022 6:57 PM EDT SITUATION: [facility] agency discharge visit completed today. dc vs completed by phone. patient reports the following: Allergies--reviewed Medications--reviewed current medications Falls--None BACKGROUND: Reason for Home Care: CHF program ASSESSMENT: SN findings today: Pt agreeable for planned dc,she states that she does not have to return to coumadin clinic until 03/15/22 and she is able manage transportation for this appt. See intervention summary for education details and any skills performed. Specific SN discharge instructions: Pt was instructed to continue to monitor weight daily and notify Dr Bonilla's office of weight gain of 5 lbs in a week. Continue to have your INR monitored at the coumadin clinic as directed. call Dr Bonilla's office for any respiratory concerns such as increased shortness of breath, coughing up green or yellow sputu,, pains in your chest. Patient encouraged to take all medication as ordered, eat a well-balanced diet and follow up with all physician appointments. NOMNC: signed and present on EMR Discharged due to Goals met. Patient discharged from Home Care to: self-care and family support RECOMMENDATION: Additional follow ups recommended: None Patient to follow up with Dr. Bonilla for additional medical questions/concerns. documented in this encounterRegency Hospital [facility]09-29-2022 Miscellaneous Notes* Telephone Encounter - Seema Garcia - 03/03/2022 8:58 AM EDT Patient informed and verbalized understanding. Seema Garcia * Telephone Encounter - Wes Bonilla MD - 03/03/2022 8:51 AM EDT Same. Recheck two weeks. * Telephone Encounter - Debbie Long Ma - 03/03/2022 8:26 AM EDT Last INR: INR (POCT) 2.5 03/02/2022 Current dose of coumadin is: 4 MW, 2 mg all other days. Previous INR (date and result): 2.3 02/24/22 Additional Clinical Information or narrative: no documented in this encounterRegency Hospital [facility]09-28-2022 Miscellaneous Notes* SN Routine - Tia Harding RN - 03/02/2022 1:51 PM EDT SITUATION: [facility] routine visit completed today. only patient present during today's visit. patient reports the following: Allergies--reviewed Medications--reviewed current medications Falls--None BACKGROUND: Reason for Home Care: CHF program ASSESSMENT: SN greeted at door by patient no DME and demonstrates stable gait. Patient appears in no acute distress. Patient/CG concerns verbalized today: pt verbalizes that she d/c'd from therapy because insurance would not approve any further vs. Vitals (see flow sheet for details): stable SN findings today: Pt reports that she has been feeling well. weight has been stable, breathing patterns have been stable.SN explained that SN cannot visit just to draw labs once therapy has d/c'd asour nursing education goals have been met. She verbalizes understanding and states that if today's INR is good, she should not have to go back for another check for 4 weeks and she can manage to get transportation for a decreased frequency on her own now, [place] [facility] NOMNC reviewed and signed by pt today. See intervention summary for education details. Patient demonstrated a need for further skilled SN services for agency dc by phone. Current Discharge plan: self-care and family support RECOMMENDATION: Next visit to focus on (be specific): NA, will plan a telephone dc on 03/04/22. documented in this encounterRegency Hospital [facility]09-23-2022 Miscellaneous Notes* CARE COORDINATION - Manju Larson PT - 02/25/2022 8:30 AM EDT PT visits denied by insurace Contacted pt and MD to notify message sent to SN documented in this encounterRegency Hospital [facility]09-22-2022 Miscellaneous Notes* SN Routine - Tia Harding RN - 02/24/2022 12:16 PM EDT SITUATION: [facility] routine visit completed today. only patient present during today's visit. patient reports the following: Allergies--reviewed Medications--reviewed current medications Falls--None BACKGROUND: Reason for Home Care: CHF program ASSESSMENT: SN greeted at door by patient no DME and demonstrates stable gait. Patient appears in no acute distress. Patient/CG concerns verbalized today: no special concerns Vitals (see flow sheet for details): stable SN findings today: Pt reports that she is feeling well today, denies shortness of breath or any pain in R chest. Lungs are clear. No cough is noted or reported. Pt reports that she saw Dr Kodi mercado and no changes were made, she is to go back in about 6 weeks for a follow up CXR. Pt reports compliance with change in warfarin dose and denies any bleeding or black tarry stool, no known adverse effects from warfarin. Pt weight has been stable and has been in the CHF green zone since last SN vs. See intervention summary for education details. Patient demonstrated a need for further skilled SN services for chronic disease management & education and safety. Current Discharge plan: self-care RECOMMENDATION: Next visit to focus on (be specific): CHF assessment and instruction. documented in this encounterRegency [facility]2022 Miscellaneous Notes* Telephone Encounter - Cadence Bustillo LPN - 02/23/2022 3:11 PM EDT Attempted to reach patient to let her know and not accepting calls at this time. Message forwarded on to home health nurse. * Telephone Encounter - Wes Bonilla MD - 02/23/2022 2:28 PM EDT Ok to draw when they go out. * Telephone Encounter - Yolis Tran RN - 02/23/2022 1:27 PM EDT Yanely Hassan [facility] called in and reports they are going to see Pt tomorrow, and Pt is supposed to go to the [facility]madin Clinic. She was asking if the provider would be ok if they draw her blood at home. She said if the provider could put an order in Epic for it, or if you are fine with them using the [employer] time put in on 02/15/22 just send her a message. Please advise. documented in this encounterRegency Hospital [facility]09-20-2022 Miscellaneous Notes* Telephone Encounter - Gemma Machado PTA - 02/22/2022 1:34 PM EDT We are waiting on insurance authorization to come through for home care PT. Patient requested to hold on PT visits until authorization is received. documented in this encounterRegency Hospital [facility]09-20-2022 History of Present illness Narrative* Elisabeth Canchola RN - 02/22/2022 12:35 PM EDT INSIGHT CDM TELEPHONIC OUTREACH Provider Action/FYI: Patient reports she is doing good, was seen by Dr Mariee today, stated everything looks and sounds good, spo2 95%, follow up xray in 6 weeks. Confirmed upcoming appts this week with patient. Patient had no further questions, concerns, needs at this time. Contact made with patient: Yes Patient identified by name and . Discussed care with patient It s nice talking to you again. As a reminder, this is our bi-weekly check-in where I will be asking you questions about your health. This will only take a few minutes of your time. Is this a good time? Yes Symptoms What Chronic Disease(s) does the patient have: COPD Do you check your blood pressures at home? No Do you have new or worse shortness of breath with activity? No Do you have new or worsening cough? No Do you have new or worsening wheezing? No Do you need to use your rescue (Albuterol) inhaler or nebulizer more often than normal? No Are you having any other symptoms that your PCP needs to know about? No Symptom Escalation The patient required an escalation for symptom(s)? No Medications Do you have any questions about taking your medication or which medications you should be on? No Do you need any medication refills at this time, including any of the medications you might take only when needed? No Social We would like to make sure you have what you need so that your basic needs are met- including your personal safety, food, housing and medications? Would you like to speak with a social work team supervisor to help give you support for any of these needs? No It can be normal to feel anxious or down during a time like this. Would you like to talk to a mental health professional about how you have been feeling? No Closing Thank you for taking the time to talk with me today. We want to work with you to ensure that we arekeeping your medical condition(s) well-controlled and to keep you healthy and out of the doctor's office or hospital. It s also not too late for me to sign you up for automated weekly questionnaires through [employer]. This is an easy way for us to stay connected each week. Are you interested? No, I understand. We can always sign you up in the future if you change your mind. Just as a reminder, will continue to call you every other week to check in on your health. Our calls should take 10-15 minutes or less. Remember, if you have concerns in between our calls, please call your PCP's office right away. Thank you. Enter next patient outreach date for two weeks on the same day of the week as today in the Track PtOutreach and End outreach. documented in this encounterRegency Hospital [facility]09-19-2022 Miscellaneous Notes* CARE COORDINATION - Gemma Machado PTA - 02/21/2022 1:22 PM EDT PT contacted patient on 02/21/22 for the following: to explain that insurance authorization for PT ispending. Patient voiced understanding and requested to hold on any further PT visits until authorization is received. New orders: None Follow up needed: None documented in this encounterRegency Hospital [facility]09-16-2022 Miscellaneous Notes* PT ROUTINE/REASSESSMENT/RECERT/CASE MGMT - Manju Larson, PT - 02/18/2022 1:11 PM EDT SITUATION: family home during visit but remained in other rooms during visit . patient reports the following since the last homecare visit: medications/allergies--no changes, no fall. patient rreports that she is feeling a little stronger BACKGROUND: Diagnoses (reason for Home Care): Hosp 01/25- at [facility] then transferred to [facility] 01/31-or Pleural effusion, right and Paroxysmal atrial fibrillation Weight Bearing/Precaution Changes: no changes ASSESSMENT: Focus of visit : Review HEP, add additional ex's and gait training for household distances Plan of care, goals, and visit frequency reviewed and agreed upon with patient and/or caregiver. Current Discharge Plan: independent with home exercise program Anticipate discharge by 03/10/22 RECOMMENDATION: Next visit to focus on progress to standing exercises for strength and balance if able See intervention summary for intervention/education details. documented in this encounterRegency Hospital [facility]09-15-2022 Miscellaneous Notes* Telephone Encounter - Cadence Bustillo LPN - 02/17/2022 4:15 PM EDT Patient notified and repeats back instructions. * Telephone Encounter - Wes Bonilla MD - 02/17/2022 4:01 PM EDT Change to 4 mg MW, 2 mg a day rest of the week. Recheck one week * Telephone Encounter - Debbie Long Ma - 02/17/2022 3:35 PM EDT Last INR: INR (POCT) 3.1 02/17/2022 Current dose of coumadin is: 4 mg MWF, 2 mg all other days. Last date of dose change: 02/09/22. Previous INR (date and result): 1.9 Additional Clinical Information or narrative: no documented in this encounterRegency Hospital [facility]09-13-2022 Miscellaneous Notes* Telephone Encounter - Wes Bonilla MD - 02/15/2022 1:47 PM EDT Order placed. * Telephone Encounter - Erik Hassan RN - 02/15/2022 1:[address] Bonilla, Patient was seen last week and an INR was obtained per the home health nurse. INR result was 1.9 and there were dose adjustments recommended. Would you like us to draw another INR today? If so, couldyou place an order in Epic? Thank you in advance for your review of this information. Erik Hassan RN-[facility] Care. documented in this encounterRegency Hospital [facility]09-13-2022 Miscellaneous Notes* SN Routine - Tia Harding RN - 02/15/2022 1:06 PM EDT SITUATION: [facility] routine visit completed today. only patient present during today's visit. patient reports the following: Allergies--reviewed Medications--reviewed current medications Falls--None BACKGROUND: Reason for Home Care: CHF program ASSESSMENT: SN greeted at door by caregiver. Upon entrance patient found in chair Patient appears in no acute distress. Patient/CG concerns verbalized today: no special concerns Vitals (see flow sheet for details): stable SN findings today: Pt is working with therapy upon SN arrival. She tolerates the exercises well. Ptreports that shortness of breath and CP have dramatically improved since hospital stay. CT site to R thorax is healed and open to air. Lungs sounds are diminished to R base but otherwise are clear.Ptreports that she had a CXR yesterday. She prefers to follow up with Dr Mariee for pulmonology and will call for an appt. Pt feels that this wa sdifferent from her previous pleural effusions, this time she feels it was more of an infection, symptoms had a rapid onset and were different. Pt with hx of heart failure and weight has been stable. CHF book is in the home and medication sections as well as fluid and sodium guidlenes were reviewed. See intervention summary for education details. Patient demonstrated a need for further skilled SN services for chronic disease management & education, medication education, labs and safety. Current Discharge plan: self-care RECOMMENDATION: Next visit to focus on (be specific): PT/INR documented in this encounterRegency Hospital [facility]09-13-2022 Miscellaneous Notes* PT ROUTINE/REASSESSMENT/RECERT/CASE MGMT - Gemma Machado PTA - 02/15/2022 12:51 PM EDT SITUATION: only patient present during today's visit. patient reports the following since the last homecare visit: medications/allergies--no changes, no fall. patient reports she has had a few Dr appointments and she took walker with her to the appointments. States she did good w/ walker . BACKGROUND: Diagnoses (reason for Home Care): Hosp 01/25- at [facility] then transferred to [facility] 01/31-02/06 for Pleuraleffusion, right and Paroxysmal atrial fibrillation Weight Bearing/Precaution Changes: no changes ASSESSMENT: Focus of visit estabolish HEP and gait training for household distances Plan of care, goals, and visit frequency reviewed and agreed upon with patient and/or caregiver. Current Discharge Plan: independent with home exercise program Anticipate discharge by 03/10/22 RECOMMENDATION: Next visit to focus on progress to standing exercises for strength and balance if able See intervention summary for intervention/education details. documented in this encounterRegency Hospital [facility]09-12-2022 Miscellaneous Notes* Telephone Encounter - Debbie Long Ma - 02/14/2022 1:09 PM EDT Patient was made aware of the results. Patient verbalizes understanding. Labs and xrays were faxed. Debbie Long Ma * Telephone Encounter - Wes Bonilla MD - 02/14/2022 8:41 AM EDT Her labs are stable. Continue meds. After reviewing hospital records in detail over the weekend. 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 She has seen both our pulmonary department as well as across the street. We need her to follow up with whichever one she wants to follow with. (Has appt to see cardiology already_ Can we fax labs and xray to [facility]-I think she is seeing them today documented in this encounterRegency Hospital [facility]09-09-2022 Miscellaneous Notes* PT EVALUATION - Manju Larson, PT - 02/11/2022 10:41 AM EDT SITUATION: PT evaluation, only patient present during today's visit. patient reports the following since the last homecare visit: medications/allergies--no changes, no fall. BACKGROUND: Hosp 01/25- at [facility] then transferred to [facility] 01/31-02/06 for Pleural effusion, right and Paroxysmal atrial fibrillation past medical history :Marfan's Syndrome Esophageal Reflux Hyperlipidemia History of Polymyalgia Rheumatica Centrilobular Emphysema Paroxysmal Atrial Fibrillation Hypertension, Essential Chronic Anticoagulation Lung Nodule Pleural Effusion, Right Prediabetes Pulmonary Hypertension Moderate Mitral Reg urgitation Pleural Effusion precautions fall risk Weight Bearing or Surgical Precautions: none ASSESSMENT: [facility]. Reviewed and explained homecare services. Plan of care, goals, and visit frequency developed, reviewed, and agreed upon with patient and/or caregiver. Patient Goal: get around better , like i was Patient will benefit from continued physical therapy to address the following deficits: strength, balance, gait, endurance, transfers and stair negotiation. Current Discharge Plan:independent with home exercise program. Anticipate discharge by 03/12/22 RECOMMENDATION: Next visit to focus on : establish HEP, transfers See intervention summary for intervention/education details. documented in this encounterRegency Hospital [facility]09-08-2022 Miscellaneous Notes* Telephone Encounter - Wes Bonilla MD - 02/10/2022 11:48 AM EDT Cardiology treated. I can look at suture when in the office. * Telephone Encounter - Maureen Bowser RN - 02/10/2022 11:06 AM EDTSummary: SOC/severe med interactions Eddie Bonilla. Nursing did a start of care on this patient 02/09/22. Patient agreeable to SN, PT/OT.Patient has 1 suture intact from previous chest tube placement on right lateral chest. Will this beremoved in the office, or would you like homecare to remove? If you would like homecare to remove please just note when. Also, severe med interactions noted between amiodarone and dilTIAZem CD; warfarin and amiodarone, please advise. Thank you, Maureen RN documented in this encounterReg[facility]22 Miscellaneous Notes* Telephone Encounter - Airam Ayon RN - 02/09/2022 5:38 PM EDT Spoke with patient. Given message from provider's office. Patient verbalizes understanding. Coumadin/INR recheck instructions verified by teach back. Airam Ayon RN * Telephone Encounter - Cadence Bustillo LPN - 02/09/2022 4:59 PM EDT Rings with no answer. Will attempt again tomorrow. * Telephone Encounter - Wes Bonilla MD - 02/09/2022 4:52 PM EDT 4 mg MWF, 2 mg a day rest of the week. Recheck one week. * Telephone Encounter - Cadence Bustillo LPN - 02/09/2022 4:44 PM EDT Last INR: PT INR 1.9 02/09/2022 Current dose of coumadin is: 4mg on mon and fri 2mg all other days. Previous INR (date and result): 1.2 02/06/22 Additional Clinical Information or narrative: no documented in this encounterRegency [facility]09-07-2022 Miscellaneous Notes* Telephone Encounter - Cadence Bustillo LPN - 02/09/2022 4:55 PM EDT INR completed today. * Telephone Encounter - Jennifer Kimball Ma - 02/08/2022 4:33 PM EDT Call to pt and phone continuously rings and receive a message stating your alliance party is not answering,please try calling again later . Jennifer Kimball Ma * Telephone Encounter - Wes Bonilla MD - 02/08/2022 4:27 PM EDT Stay on same dose tonight. Get done in am. * Telephone Encounter - Deana Coleman RN - 02/08/2022 4:21 PM EDT Patient calls and states that she cannot find a ride to get INR done today. Patient asking what coumadin dose should she take tonight? Please review and advise, Deana Coleman RN documented in this encounterRegency [facility]-07-2022 Miscellaneous Notes* SN SOC - Maureen Bowser RN - 02/09/2022 12:02 PM EDT SITUATION: [facility] visit completed today. spouse, and family also present during today's visit. patient reports the following: Allergies--reviewed Medications--full medication reconciliation completed Falls--None DME-Reviewed and added to chart BACKGROUND: Discharged/Referral from acute [facility] on 02/06/22 following treatment for pleural effusion. Pertinent referral information or other diagnoses that may affect plan of care: esophageal reflux, CHF, Afib, HTN, chronic anticoagulation ASSESSMENT: SN greeted at door by patient no DME and demonstrates stable gait. Patient appears in no acute distress. Patient lives at home with spouse, 3 of her children, and grandchildren. Home environment: dirty, cluttered and has pets: multiple cats. SOC booklet reviewed & completed with patient and consent obtained for Home Care services. Patient/CG concerns verbalized today: none expressed Vitals (see flow sheet for details): stable SN findings today: Patient pleasant and cooperative with SN assessment. Patient lives with spouse and multiple children and grandchildren. Patient lives in a two story home with the bedroom and bathroom upstairs. She has a rollator but states she only uses it when she leaves the house. House is cluttered in living space. SN educated patient on fall and safety precautions such as using rollator, assist x1, clearing a path, adequate lighting and removing rugs, she verbalizes understanding. VSS, LCTA, BSx4, HRR, A&Ox4. Patient is short of breath with minimal exertion. SN encouraged patient to rest and deep breathe intermittently during ADLs. Clear lung sounds at assessment. Patient states she does not check her weight daily. SN assisted patient on scale and obtained patient weight of 132lbs during visit. SN reviewed CHF binder with patient and educated on three zones and the importanceof daily weights, logging and when to report changes. Patient verbalizes understanding. Patient hasright lateral chest incision SN removed dressing and noted 1 suture intact, no drainage or S&S of infection. SN cleansed area and applied gauze and transparent film. Message sent to Dr. Bonilla to see if suture is to be removed in office or homecare. Medications reviewed and the purpose of each discussed with patient, she verbalizes understanding. Patient takes Coumadin and has INR monitored regularly via outpatient lab. She states she is going today to have it checked. SN educated patient on Coumadin precautions. +2BLE noted, SN educated patient to elevate BLE and wear compression stockings. Patient denies any bowel issues but reports urinary incontinence at times. SN educated patient on incontinence care. No other questions or concerns at this time. See intervention summary for education details and skills performed. Plan of care and visit frequency established with patient and plan of care agreed upon. Patient demonstrated a need for further skilled SN services for chronic disease management & education, medication education, wound/skin care and safety. RECOMMENDATION: Visit Frequency: SN 1w4 Need for additional services: Patient agreeable to PT and OT referrals. Patient declined N/A referrals. Additional concerns to be followed up on: NONE Next visit to focus on (be specific): CHF, daily weights, incision check, medication education documented in this encounterRegency [facility]09-07-2022 History of Present illness Narrative* Elisabeth Canchola RN - 02/09/2022 11:00 AM EDT INSIGHT CDM TELEPHONIC OUTREACH Provider Action/FYI: Patient states she is feeling better now that she is home, inpatient at [facility] 01/31/22 to 02/06/22, [facility] nurse will be at her house for SOC today. Patient states she will have INR drawn today after [facility] nurse is done, has follow up w/pcp 02/11/22 Patient had no questions, concerns, needs at this time. Contact made with patient: Yes Patient identified by name and . Discussed care with patient It s nice talking to you again. As a reminder, this is our bi-weekly check-in where I will be asking you questions about your health. This will only take a few minutes of your time. Is this a good time? Yes Symptoms What Chronic Disease(s) does the patient have: COPD Do you check your blood pressures at home? No Do you have new or worse shortness of breath with activity? No Do you have new or worsening cough? No Do you have new or worsening wheezing? No Do you need to use your rescue (Albuterol) inhaler or nebulizer more often than normal? No Are you having any other symptoms that your PCP needs to know about? No Symptom Escalation The patient required an escalation for symptom(s)? No Medications Do you have any questions about taking your medication or which medications you should be on? No Do you need any medication refills at this time, including any of the medications you might take only when needed? No Social We would like to make sure you have what you need so that your basic needs are met- including your personal safety, food, housing and medications? Would you like to speak with a social work team supervisor to help give you support for any of these needs? No It can be normal to feel anxious or down during a time like this. Would you like to talk to a mental health professional about how you have been feeling? No Closing Thank you for taking the time to talk with me today. We want to work with you to ensure that we arekeeping your medical condition(s) well-controlled and to keep you healthy and out of the doctor's office or hospital. It s also not too late for me to sign you up for automated weekly questionnaires through [employer]. This is an easy way for us to stay connected each week. Are you interested? No, I understand. We can always sign you up in the future if you change your mind. Just as a reminder, will continue to call you every other week to check in on your health. Our calls should take 10-15 minutes or less. Remember, if you have concerns in between our calls, please call your PCP's office right away. Thank you. Enter next patient outreach date for two weeks on the same day of the week as today in the Track PtOutreach and End outreach. documented in this encounterRegency Hospital [facility]09-06-2022 Miscellaneous Notes* Telephone Encounter - Kaley Kala - 02/08/2022 3:27 PM EDT Called PT no VM setup will attempt again. Thanks * Telephone Encounter - Wes Bonilla MD - 02/08/2022 2:18 PM EDT Needs INR charanjit. * Telephone Encounter - Deana Coleman RN - 02/08/2022 1:51 PM EDT Patient calls and states that she was discharged from [facility] on 02/06/2022. Patient states that her INR was 1.2 at time of discharge. Patient was told to continue her current dosage of Coumadin. Patient take Coumadin 4 mg on MF and 2 mg on all other days. Patient calling and asking what dosage of Coumadin does provider want her to take today. Patient took 4 mg yesterday. Patient does have hospital follow up with provider on 02/11/2022. Please review and advise, Deana Coleman RN documented in this encounterRegency Hospital [facility]09-06-2022 History of Present illness Narrative* Vicki Christianson Population Health Navigator - 02/08/2022 11:21 AM EDT POPULATION HEALTH NAVIGATION OUTREACH Action/FYI Called patient to schedule hospital follow up with PCP. Pt identified by name and : YES, via phone Outreach Outcome/Action Spoke to patient or caregiver: Patient scheduled on 02/11/2022. Did you use a PCP flex slot to schedule this appointment? No Reason for Outreach Community Monitoring [place] Payer: Payor: [employer] MEDICARE / Plan: [employer] MEDICARE PPO / Product Type: PPO / Care Gap Reviewed:: Follow-up appointment Reminder: Reminder note to check Health Maintenance for items below Health Maintenance items due: INFLUENZA(1) due on 02/03/2022 Message Sent to Practice: No Vicki Christianson Population Health Navigator February 08, 2022 11:21 AM * Colleen Cardenas RN - 02/08/2022 10:29 AM EDT TRANSITIONAL CARE MANAGEMENT (TCM) COMMUNITY MONITORING PROGRAM TCM Home Visit Referral Source of Stratification: [facility] Hospital Admission Status: Discharged Readmission Risk Score: 20 TRE Score: 23 Program referral criteria met: Does not meet referral criteria Patient does not qualify for High Risk TCM Home Visit program due to: Does not meet referral criteria Patient does not quality for High Risk TCM Home Visit Program due to: Does not meet referral criteria Preferred contact number: N/A Is patient staying somewhere other than the listed home address: No Dialysis Patient: No Provider Action/FYI: TCM PSS:TCM eligible until 02/20 . Patient desires an appointment - Routed to COMMUNITY MONITORING PSS POOL for scheduling visit within 7 days of discharge with PCP care team. Thank you, Colleen Cardenas RN, [facility] Transitions of Care Critical Issues: LAB MONITORING NEEDED: Repeat INR in 2-3 days LABS AND PROCEDURES PENDING AT DISCHARGE: No pending results. Patient reports she is a little weak but otherwise feeling better. Denies CP, SOB, palpitations, dizziness, fever, increased swelling, or any worsening SX Plans to call and schedule for repeat INR with [facility] Agrees to call from PSS for TCM appt. Reports she is up moving around with her walker. Provided with number for [facility] to return their call for SOC Reviewed CT site wound care. Dsg d/I Denies further concerns or questions. SUMMARY: Pt discharged from [facility] on 02/06. Admitted for: Pleural effusion /parapneumonia effusion Contact made with patient: Yes Hi my name is Colleen Cardenas RN and I am calling from the [facility] on behalf of your PCP,Wes Bonilla MD I understand you were recently in the hospital so I am calling to check in with you to ensure you are feeling well now that you're home. May I ask you a few questions related to your hospital stay and well-being? Yes Contact with patient post discharge, spoke to patient. Patient identified by name and . Do you feel your health is BETTER, WORSE, or the SAME since leaving the hospital? Better ACTION TAKEN: Patient indicated symptoms are better or same, no action required. Continue outreach. MEDICATIONS: Many patients have questions or concerns about their medications once they are home. Do you have any questions about taking your medications or which medication you should be on? No Do you need any medication refills at this time, including any of the medications you might take only when needed? No ACTION TAKEN: No action required For RNs or Pharmacy completing outreach ONLY, was a medication review completed? Med adjustments only, per patient preference. See [facility] pharmacy outreach. SOCIAL: We would like to make sure you have what you need so that your basics needs are met - including your personal safety, food, housing and medications. Would you like to speak with a social work team supervisor to help give you support for any of these needs? No It can be normal to feel anxious or down during a time like this. Would you like to talk to a mental health professional about how you have been feeling? No ACTION TAKEN: No action taken DISCHARGE INTRUCTIONS: Your discharge instructions / After Visit Summary (AVS) are important in guiding you through the recovery process. Do you have any questions related to your discharge instructions? No Do you have all the necessary equipment and supplies at home? Yes ACTION TAKEN: No action required I would like to help you schedule a hospital follow-up virtual or telephone visit with your PCP. This is a great way for you to connect with your provider to ensure you have safely transitioned home.If you are agreeable, I will send your request to a university teacher who will contact and assist you with that appointment. This will give you an opportunity to ask any questions or address any concerns youmay have with your PCP. Inform the patient that if they have any questions or concerns prior to that appointment, to call their PCP's office right away. ACTION TAKEN: Patient desires an appointment - Routed to [facility] [[id number]] for schedulingtelehealth visit (telephonic, virtual visit, or Facetime) within 7 days of discharge with PCP care team. Indicate hospital follow-up appointment needed within 7 days in Provider/FYI box. End Outreach. Your doctor would like us to remind you of the recommendations regarding the coronavirus (Covid19) outbreak: Avoid public places as much as possible. Avoid close contact (within 6 feet) with others you don t live with, especially if they are sick. Stay home if you are sick. Wash your hands regularly for at least 20 seconds with soap and water. Wear a cloth mask in public places to help reduce community spread. Do not go to your Doctor s office unless instructed to do so. For any non- emergency symptoms, call your Doctor s office to get instructions on how to manage (we might recommend a telephone or virtualvisit). For emergency symptoms, proceed to Emergency Department as usual but inform them of cough and fever symptoms CHARANJIT if present (or call on the way if possible). documented in this encounterRegency [facility]08-29-2022 History of Past illness Narrative* Problem Noted Date Resolved Date Pleural effusion 01/31/2022 04/19/2022 Thoracic aorta atherosclerosis 03/23/2020 0 09/23/2020 Chronic systolic heart failure 11/21/2019 0 09/23/2020 Fatigue 11/24/2016 10/10/2017 Atrial fibrillation 01/14/2014 10/10/2017 Multiple thyroid nodules 03/03/2011 021 Hypertension 01/19/2011 06/23/2015 Esophagitis, unspecified 01/13/2009 018 Gastrointestinal malfunction arising from mental factors 12/09/2008 10/10/2017 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 Dysphagia, unspecified(787.20) 1 07/09/2017 documented as of this encounter (statuses as of 04/19/2022) [facility] History of Past illness Narrative* Problem Noted Date Resolved Date Pleural effusion 01/31/2022 04/19/2022 Thoracic aorta atherosclerosis 03/23/2020 0 09/23/2020 Chronic systolic heart failure 11/21/2019 0 09/23/2020 Fatigue 11/24/2016 10/10/2017 Atrial fibrillation 01/14/2014 10/10/2017 Multiple thyroid nodules 03/03/2011 021 Hypertension 01/19/2011 06/23/2015 Esophagitis, unspecified 01/13/2009 018 Gastrointestinal malfunction arising from mental factors 12/09/2008 10/10/2017 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 Dysphagia, unspecified(787.20) 1 07/09/2017 documented as of this encounter (statuses as of 04/19/2022) [place] [address]29-[address]22 History of Past illness Narrative* Problem Noted Date Resolved Date Pleural effusion 01/31/2022 04/19/2022 Thoracic aorta atherosclerosis 03/23/2020 0 09/23/2020 Chronic systolic heart failure 11/21/2019 0 09/23/2020 Fatigue 11/24/2016 10/10/2017 Atrial fibrillation 01/14/2014 10/10/2017 Multiple thyroid nodules 03/03/2011 021 Hypertension 01/19/2011 06/23/2015 Esophagitis, unspecified 01/13/2009 018 Gastrointestinal malfunction arising from mental factors 12/09/2008 10/10/2017 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 Dysphagia, unspecified(787.20) 1 07/09/2017 documented as of this encounter (statuses as of 04/19/2022) [facility] History of Past illness Narrative* Problem Noted Date Resolved Date Pleural effusion 01/31/2022 04/19/2022 Thoracic aorta atherosclerosis 03/23/2020 0 09/23/2020 Chronic systolic heart failure 11/21/2019 0 09/23/2020 Fatigue 11/24/2016 10/10/2017 Atrial fibrillation 01/14/2014 10/10/2017 Multiple thyroid nodules 03/03/2011 021 Hypertension 01/19/2011 06/23/2015 Esophagitis, unspecified 01/13/2009 018 Gastrointestinal malfunction arising from mental factors 12/09/2008 10/10/2017 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 Dysphagia, unspecified(787.20) 1 07/09/2017 documented as of this encounter (statuses as of 04/20/2022) [address]22 History of Past illness Narrative* Problem Noted Date Resolved Date Pleural effusion 01/31/2022 04/19/2022 Thoracic aorta atherosclerosis 03/23/2020 0 09/23/2020 Chronic systolic heart failure 11/21/2019 0 09/23/2020 Fatigue 11/24/2016 10/10/2017 Atrial fibrillation 01/14/2014 10/10/2017 Multiple thyroid nodules 03/03/2011 021 Hypertension 01/19/2011 06/23/2015 Esophagitis, unspecified 01/13/2009 018 Gastrointestinal malfunction arising from mental factors 12/09/2008 10/10/2017 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 Dysphagia, unspecified(787.20) 1 07/09/2017 documented as of this encounter (statuses as of 04/26/2022) [place] [address]29-[address]22 History of Past illness Narrative* Problem Noted Date Resolved Date Pleural effusion 01/31/2022 04/19/2022 Thoracic aorta atherosclerosis 03/23/2020 0 09/23/2020 Chronic systolic heart failure 11/21/2019 0 09/23/2020 Fatigue 11/24/2016 10/10/2017 Atrial fibrillation 01/14/2014 10/10/2017 Multiple thyroid nodules 03/03/2011 021 Hypertension 01/19/2011 06/23/2015 Esophagitis, unspecified 01/13/2009 018 Gastrointestinal malfunction arising from mental factors 12/09/2008 10/10/2017 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 Dysphagia, unspecified(787.20) 1 07/09/2017 documented as of this encounter (statuses as of 05/17/2022) [address]-[address]22 History of Past illness Narrative* Problem Noted Date Resolved Date Pleural effusion 01/31/2022 04/19/2022 Thoracic aorta atherosclerosis 03/23/2020 0 09/23/2020 Chronic systolic heart failure 11/21/2019 0 09/23/2020 Fatigue 11/24/2016 10/10/2017 Atrial fibrillation 01/14/2014 10/10/2017 Multiple thyroid nodules 03/03/20112 021 Hypertension 01/19/2011 06/23/2015 Esophagitis, unspecified 01/13/2009 018 Gastrointestinal malfunction arising from mental factors 12/09/2008 10/10/2017 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 Dysphagia, unspecified(787.20) 1 07/09/2017 documented as of this encounter (statuses as of 05/18/2022) [place] [address]29-[address]22 History of Past illness Narrative* Problem Noted Date Resolved Date Pleural effusion 01/31/2022 04/19/2022 Thoracic aorta atherosclerosis 03/23/2020 0 09/23/2020 Chronic systolic heart failure 11/21/2019 0 09/23/2020 Fatigue 11/24/2016 10/10/2017 Atrial fibrillation 01/14/2014 10/10/2017 Multiple thyroid nodules 03/03/2011 021 Hypertension 01/19/2011 06/23/2015 Esophagitis, unspecified 01/13/2009 018 Gastrointestinal malfunction arising from mental factors 12/09/2008 10/10/2017 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 Dysphagia, unspecified(787.20) 1 07/09/2017 documented as of this encounter (statuses as of 05/19/2022) [address]22 History of Past illness Narrative* Problem Noted Date Resolved Date Pleural effusion 01/31/2022 04/19/2022 Thoracic aorta atherosclerosis 03/23/2020 0 09/23/2020 Chronic systolic heart failure 11/21/2019 0 09/23/2020 Fatigue 11/24/2016 10/10/2017 Atrial fibrillation 01/14/2014 10/10/2017 Multiple thyroid nodules 03/03/2011 021 Hypertension 01/19/2011 06/23/2015 Esophagitis, unspecified 01/13/2009 018 Gastrointestinal malfunction arising from mental factors 12/09/2008 10/10/2017 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 Dysphagia, unspecified(787.20) 1 07/09/2017 documented as of this encounter (statuses as of 05/21/2022) [address]22 History of Past illness Narrative* Problem Noted Date Resolved Date Pleural effusion 01/31/2022 04/19/2022 Thoracic aorta atherosclerosis 03/23/2020 0 09/23/2020 Chronic systolic heart failure 11/21/2019 0 09/23/2020 Fatigue 11/24/2016 10/10/2017 Atrial fibrillation 01/14/2014 10/10/2017 Multiple thyroid nodules 03/03/2011 021 Hypertension 01/19/2011 06/23/2015 Esophagitis, unspecified 01/13/2009 018 Gastrointestinal malfunction arising from mental factors 12/09/2008 10/10/2017 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 Dysphagia, unspecified(787.20) 1 07/09/2017 documented as of this encounter (statuses as of 05/27/2022) [address]-[address]22 History of Past illness Narrative* Problem Noted Date Resolved Date Pleural effusion 01/31/2022 04/19/2022 Thoracic aorta atherosclerosis 03/23/2020 0 09/23/2020 Chronic systolic heart failure 11/21/2019 0 09/23/2020 Fatigue 11/24/2016 10/10/2017 Atrial fibrillation 01/14/2014 10/10/2017 Multiple thyroid nodules 03/03/2011 021 Hypertension 01/19/2011 06/23/2015 Esophagitis, unspecified 01/13/2009 018 Gastrointestinal malfunction arising from mental factors 12/09/2008 10/10/2017 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 Dysphagia, unspecified(787.20) 1 07/09/2017 documented as of this encounter (statuses as of 06/08/2022) [address]22 History of Past illness Narrative* Problem Noted Date Resolved Date Pleural effusion 01/31/2022 04/19/2022 Thoracic aorta atherosclerosis 03/23/2020 0 09/23/2020 Chronic systolic heart failure 11/21/2019 0 09/23/2020 Fatigue 11/24/2016 10/10/2017 Atrial fibrillation 01/14/2014 10/10/2017 Multiple thyroid nodules 03/03/2011 021 Hypertension 01/19/2011 06/23/2015 Esophagitis, unspecified 01/13/2009 018 Gastrointestinal malfunction arising from mental factors 12/09/2008 10/10/2017 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 Dysphagia, unspecified(787.20) 1 07/09/2017 documented as of this encounter (statuses as of 06/21/2022) [address] History of Past illness Narrative* Problem Noted Date Resolved Date Pleural effusion 01/31/2022 04/19/2022 Thoracic aorta atherosclerosis 03/23/2020 0 09/23/2020 Chronic systolic heart failure 11/21/2019 0 09/23/2020 Fatigue 11/24/2016 10/10/2017 Atrial fibrillation 01/14/2014 10/10/2017 Multiple thyroid nodules 03/03/2011 021 Hypertension 01/19/2011 06/23/2015 Esophagitis, unspecified 01/13/2009 018 Gastrointestinal malfunction arising from mental factors 12/09/2008 10/10/2017 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 Dysphagia, unspecified(787.20) 1 07/09/2017 documented as of this encounter (statuses as of 06/29/2022) [address]22 History of Past illness Narrative* Problem Noted Date Resolved Date Pleural effusion 01/31/2022 04/19/2022 Thoracic aorta atherosclerosis 03/23/2020 0 09/23/2020 Chronic systolic heart failure 11/21/2019 0 09/23/2020 Fatigue 11/24/2016 10/10/2017 Atrial fibrillation 01/14/2014 10/10/2017 Multiple thyroid nodules 03/03/2011 021 Hypertension 01/19/2011 06/23/2015 Esophagitis, unspecified 01/13/2009 018 Gastrointestinal malfunction arising from mental factors 12/09/2008 10/10/2017 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 Dysphagia, unspecified(787.20) 1 07/09/2017 documented as of this encounter (statuses as of 06/30/2022) [address]29-2022 History of Past illness Narrative* Problem Noted Date Resolved Date Pleural effusion 01/31/2022 04/19/2022 Thoracic aorta atherosclerosis 03/23/2020 0 09/23/2020 Chronic systolic heart failure 11/21/2019 0 09/23/2020 Fatigue 11/24/2016 10/10/2017 Atrial fibrillation 01/14/2014 10/10/2017 Multiple thyroid nodules 03/03/2011 021 Hypertension 01/19/2011 06/23/2015 Esophagitis, unspecified 01/13/2009 018 Gastrointestinal malfunction arising from mental factors 12/09/2008 10/10/2017 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 Dysphagia, unspecified(787.20) 1 07/09/2017 documented as of this encounter (statuses as of 07/04/2022) [facility]08-29-2022 History of Past illness Narrative* Problem Noted Date Resolved Date Pleural effusion 01/31/2022 04/19/2022 Thoracic aorta atherosclerosis 03/23/2020 0 09/23/2020 Chronic systolic heart failure 11/21/2019 0 09/23/2020 Fatigue 11/24/2016 10/10/2017 Atrial fibrillation 01/14/2014 10/10/2017 Multiple thyroid nodules 03/03/2011 021 Hypertension 01/19/2011 06/23/2015 Esophagitis, unspecified 01/13/2009 018 Gastrointestinal malfunction arising from mental factors 12/09/2008 10/10/2017 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 Dysphagia, unspecified(787.20) 1 07/09/2017 documented as of this encounter (statuses as of 07/04/2022) [facility]08-29-2022 History of Past illness Narrative* Problem Noted Date Resolved Date Pleural effusion 01/31/2022 04/19/2022 Thoracic aorta atherosclerosis 03/23/2020 0 09/23/2020 Chronic systolic heart failure 11/21/2019 0 09/23/2020 Fatigue 11/24/2016 10/10/2017 Atrial fibrillation 01/14/2014 10/10/2017 Multiple thyroid nodules 03/03/2011 021 Hypertension 01/19/2011 06/23/2015 Esophagitis, unspecified 01/13/2009 018 Gastrointestinal malfunction arising from mental factors 12/09/2008 10/10/2017 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 Dysphagia, unspecified(787.20) 1 07/09/2017 documented as of this encounter (statuses as of 07/07/2022) [place] [address]29-2022 History of Past illness Narrative* Problem Noted Date Resolved Date Pleural effusion 01/31/2022 04/19/2022 Thoracic aorta atherosclerosis 03/23/2020 0 09/23/2020 Chronic systolic heart failure 11/21/2019 0 09/23/2020 Fatigue 11/24/2016 10/10/2017 Atrial fibrillation 01/14/2014 10/10/2017 Multiple thyroid nodules 03/03/2011 021 Hypertension 01/19/2011 06/23/2015 Esophagitis, unspecified 01/13/2009 018 Gastrointestinal malfunction arising from mental factors 12/09/2008 10/10/2017 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 Dysphagia, unspecified(787.20) 1 07/09/2017 documented as of this encounter (statuses as of 07/07/2022) [facility]08-29-2022 History of Past illness Narrative* Problem Noted Date Resolved Date Pleural effusion 01/31/2022 04/19/2022 Thoracic aorta atherosclerosis 03/23/2020 0 09/23/2020 Chronic systolic heart failure 11/21/2019 0 09/23/2020 Fatigue 11/24/2016 10/10/2017 Atrial fibrillation 01/14/2014 10/10/2017 Multiple thyroid nodules 03/03/2011 021 Hypertension 01/19/2011 06/23/2015 Esophagitis, unspecified 01/13/2009 018 Gastrointestinal malfunction arising from mental factors 12/09/2008 10/10/2017 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 Dysphagia, unspecified(787.20) 1 07/09/2017 documented as of this encounter (statuses as of 07/11/2022) [facility]08-29-2022 History of Past illness Narrative* Problem Noted Date Resolved Date Pleural effusion 01/31/2022 04/19/2022 Thoracic aorta atherosclerosis 03/23/2020 0 09/23/2020 Chronic systolic heart failure 11/21/2019 0 09/23/2020 Fatigue 11/24/2016 10/10/2017 Atrial fibrillation 01/14/2014 10/10/2017 Multiple thyroid nodules 03/03/2011 021 Hypertension 01/19/2011 06/23/2015 Esophagitis, unspecified 01/13/2009 018 Gastrointestinal malfunction arising from mental factors 12/09/2008 10/10/2017 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 Dysphagia, unspecified(787.20) 1 07/09/2017 documented as of this encounter (statuses as of 07/21/2022) [facility]08-12-2022 History of Present illness Narrative* Gregorio Delcid MD - 01/14/2022 4:10 PM EDT I agree with the advice given; stay same and recheck in 1 month Gregorio Delcid MD * Yanely Posadas RN - 01/14/2022 1:24 PM EDT patient had inr completed at [facility] patients inr is 2.0 (patients inr range is 2.0-3.0) patient is currently taking 4mg Mon,Fri and 2mg all other days patients last dose change was on 10/11/21 due to a high level of 3.5 (dose at that time was 4mg Mon,Wed,Fri and 2mg all other days) patient has had no changes in medication and no missed doses and no change in diet Advised patient to continue on the same dose(s) and that they would only be contacted regarding dosage and follow up instructions after review with provider, if a change is needed. Written instructions given and patient verbalized understanding. Presently scheduled in 1 month (02/24/22) for follow up INR. documented in this encounter[facility] Instructions* Patient Instructions* Dalila Jensen APRN.CNP - 01/14/2022 2:05 PM EDT Continue the same medication. 2. Recheck in 3 months. 3. Get fasting labwork prior to next appt. documented in this encounterReg[facility] History of Present illness Narrative* Dalila Jensen APRN.CNP - 01/14/2022 1:38 PM EDT This is a 76 year old female who presents today with: Patient presents with: Recheck: 3 month follow up; INR done today; HISTORY OF PRESENT ILLNESS: Nimisha Ceja is a 76 year old female. Patient presents with: Recheck: 3 month follow up; INR done today; Pt presents today for 3 month recheck. CHF Continues to follow with Dr. Arriaga. No CP/SOB. No palpitations. No swelling. A. Fib Continues with Dr. Arriaga. Continues coumadin. No abnormal s/s of bleeding. GERD Continues on PPI. Keeps symptoms controlled. HTN: Patient is compliant with meds Yes Monitors bp at home: Yes. Denies side effects: Yes. Chest pain: No. Dyspnea: No. Edema: No. Palpitations: No. Syncope: No. Headache: No. Dizziness: No. REVIEW OF SYSTEMS GENERAL: No weight loss, malaise or fevers/chills HEENT: Negative for frequent or significant headaches, No changes in hearing or vision. NECK: Negative for lumps, goiter, pain and significant neck swelling RESPIRATORY: Negative for cough, hemoptysis, wheezing, dyspnea or shortness of breath CARDIOVASCULAR: Negative for chest pain, leg swelling, orthopnea, or palpitations GI: No nausea, vomiting, or diarrhea/constipation. No hematochezia/melena. No heartburn or reflux symptoms. : No history of dysuria, frequency or incontinence MUSCULOSKELETAL: Negative for joint pain or swelling. Sometimes some lower back and left knee weakness. No popping/cracking. SKIN: Negative for lesions, rash, and itching ENDOCRINE: Negative for cold or heat intolerance, polyuria, and goiter. Sometimes some increased thirst. NEURO: No history of headaches, syncope, paralysis, seizures or tremors PAST MEDICAL HISTORY: PAST MEDICAL HISTORY Diagnosis Date A-fib ([facility]) Class 1 congestive heart failure, unspecified failure chronicity, systolic ([facility]) 11/21/2019 Dysphagia, unspecified(787.20) Esophageal reflux Esophagitis, unspecified Marfan's syndrome Moderate mitral regurgitation 06/18/2021 04/27/21 Echo at [facility]. Pleural effusion, right 05/05/2020 CXR 11/18/19 and 05/04/20. Unspecified essential hypertension PAST SURGICAL HISTORY Procedure Laterality Date COLONOSCOPY FLX DX W/COLLJ SPEC WHEN PFRMD 10/16/14 Colonoscopy EGD TRANSORAL BIOPSY SINGLE/MULTIPLE 01/13/09 ESOPHAGOGASTRODUODENOSCOPY TRANSORAL DIAGNOSTIC 10/16/14 EGD FNA WITH IMAGING 03/16/11 U/S FNA left mid/lower lobe thyroid nodule MAMMOGRAM BILATERAL August 2010? PAST SURGICAL HISTORY OF tubial pregnacy/tube removed PAST SURGICAL HISTORY OF eye surgery bilateral TOTAL ABDOMINAL HYSTERECT W/WO RMVL TUBE OVARY Hysterectomy, MICHOACANO ALLERGIES Crestor [Rosuvastatin Calcium], Ibuprofen, Prevnar 13 [Pneumoc 13-Chu Conj-Dip Cr(Pf)], and Latex MEDICATIONS Current Outpatient Medications Medication Sig warfarin (COUMADIN) 4 mg tablet 4 mg on /, 2 mg all other days or as directed metoprolol tartrate, short acting, (LOPRESSOR) 100 mg tablet Take 1 tablet by mouth twice daily. furosemide (LASIX) 40 mg tablet Take 1 tablet by mouth twice daily. amiodarone (PACERONE) 200 mg tablet Take 1 tablet by mouth once daily. WALKER ROLLATOR SEAT WITH 6 WHEELS - RED Daily use R26.81 Gait instability (primary encounter diagnosis) potassium chloride 20 mEq TbER Take 1 tablet by mouth twice daily. omeprazole (PRILOSEC) 40 mg capsule Take 1 capsule by mouth once daily. albuterol HFA (PROVENTIL HFA, VENTOLIN HFA) 90 mcg/actuation inhaler Inhale 2 Puffs as instructed every 4 hours as needed. diltiazem CD (CARTIA XT) 120 mg 24 hr capsule Take 2 capsules by mouth once daily. 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 MULTIVITAMIN ORAL Take by mouth. No current facility-administered medications for this visit. FAMILY HISTORY Problem Relation Age of Onset Diabetes Mother Cancer Mother other (marfan syndrome) Mother GI Father ulcer Diabetes Sister other (marfan syndrome) Brother x2 Stroke Maternal Grandmother Hypertension Sister Hypertension Brother COPD Brother Emphysema COPD Daughter Emphysema Social History Tobacco Use Smoking status: Never Smokeless tobacco: Never Tobacco comments: Spouse smoked cigars in home until about 2003. Vaping Use Vaping Use: Never used Substance Use Topics Alcohol use: No Drug use: No EXAM: BP 110/60 Pulse (!) 52 Resp 18 Wt 60.3 kg (133 lb) SpO2 95% BMI 25.77 kg/m PHYSICAL EXAM: General Appearance: Well appearing, alert, in no acute distress, well-hydrated, well nourished.. Skin: Skin color, texture, turgor normal, no suspicious rashes or lesions. Head: Normocephalic, no masses, lesions, tenderness or abnormalities. Eyes: Anicteric sclera. Extraocular movements are intact. . Neck: Supple, no adenopathy; thyroid symmetric, normal size, no bruits. Lungs: Lungs clear to auscultation. No wheezing, rhonchi, rales.. Heart: RRR without murmur, gallop, or rubs. No ectopy. Abdomen: Abdomen soft, non-tender. Bowel sounds normal. No masses, organomegaly. Extremities: No deformities, edema, skin discoloration, clubbing or cyanosis. Good capillary refill. Neurologic: Gait normal. ASSESSMENT/PLAN: 1. Hypertension, essential - ICD9: 401.9, ICD10: I10 (primary diagnosis) - good control - Continue current medication(s) - Recommended regular aerobic exercise. - Recommend home blood pressure monitoring, to bring results in on next visit - Goal of BP <130/80 - COMP METABOLIC PANEL 2. Renal insufficiency - ICD9: 593.9, ICD10: N28.9 - COMP METABOLIC PANEL 3. Prediabetes - ICD9: 790.29, ICD10: R73.03 - COMP METABOLIC PANEL - HGB A1C - HGB A1C 4. Chronic anticoagulation - ICD9: V58.61, ICD10: Z79.01 No s/s of bleeding. INR therapeutic today. - CBC + DIFF - COMP METABOLIC PANEL 5. Gastroesophageal reflux disease, unspecified whether esophagitis present - ICD9: 530.81, ICD10: K21.9 Controlled w/ PPI. - MAGNESIUM BLD 6. Hyperlipidemia, unspecified hyperlipidemia type - ICD9: 272.4, ICD10: E78.5 - to be determined upon return of lab results - Continue current medication. - LIPID PANEL BASIC 7. Paroxysmal atrial fibrillation (HCC) - ICD9: 427.31, ICD10: I48.0 Continue per cardiology. 8. Acute combined systolic and diastolic congestive heart failure (HCC) - ICD9: 428.41, 428.0, ICD10: I50.41 Stable. Continue per cardiology. Discussed treatment plan and patient voices understanding. Patient's questions answered appropriately. Medications and potential side effects were discussed and patient voices understanding. Return to the office as scheduled or as needed for worsening/no improvement. Dalila Jensen APRN.TRICIA This note was partially generated using [employer] voice recognition system. Note was reviewed for accuracy. There may be minor misspellings or grammar miscues with [employer] voice recognition. documented in this encounterReg[facility] History of Present illness Narrative* Elisabeth Canchola RN - 01/05/2022 9:18 AM EDT [facility] TELEPH[facility] OUTREACH Provider Action/FYI: No concerns at this time. Contact made with patient: Yes Patient identified by name and . Discussed care with patient It s nice talking to you again. As a reminder, this is our bi-weekly check-in where I will be asking you questions about your health. This will only take a few minutes of your time. Is this a good time? Yes Symptoms What Chronic Disease(s) does the patient have: COPD Do you check your blood pressures at home? No Do you have new or worse shortness of breath with activity? No Do you have new or worsening cough? No Do you have new or worsening wheezing? No Do you need to use your rescue (Albuterol) inhaler or nebulizer more often than normal? No Are you having any other symptoms that your PCP needs to know about? No Symptom Escalation The patient required an escalation for symptom(s)? No Medications Do you have any questions about taking your medication or which medications you should be on? No Do you need any medication refills at this time, including any of the medications you might take only when needed? No Social We would like to make sure you have what you need so that your basic needs are met- including your personal safety, food, housing and medications? Would you like to speak with a social work team supervisor to help give you support for any of these needs? No It can be normal to feel anxious or down during a time like this. Would you like to talk to a mental health professional about how you have been feeling? No Closing Thank you for taking the time to talk with me today. We want to work with you to ensure that we arekeeping your medical condition(s) well-controlled and to keep you healthy and out of the doctor's office or hospital. It s also not too late for me to sign you up for automated weekly questionnaires through [employer]. This is an easy way for us to stay connected each week. Are you interested? No, I understand. We can always sign you up in the future if you change your mind. Just as a reminder, will continue to call you every other week to check in on your health. Our calls should take 10-15 minutes or less. Remember, if you have concerns in between our calls, please call your PCP's office right away. Thank you. Enter next patient outreach date for two weeks on the same day of the week as today in the Track PtOutreach and End outreach. documented in this encounterRegency [facility]07-18-2022 History of Present illness Narrative* Elisabeth Canchola RN - 12/20/2021 2:13 PM EDT INSIGHT CDM TELEPHONIC OUTREACH Provider Action/FYI: Patient had no concerns at this time. Contact made with patient: Yes Patient identified by name and . Discussed care with patient It s nice talking to you again. As a reminder, this is our bi-weekly check-in where I will be asking you questions about your health. This will only take a few minutes of your time. Is this a good time? Yes Symptoms What Chronic Disease(s) does the patient have: COPD Do you check your blood pressures at home? Yes, Enter readings: 128/63 Do you have new or worse shortness of breath with activity? No Do you have new or worsening cough? No Do you have new or worsening wheezing? No Do you need to use your rescue (Albuterol) inhaler or nebulizer more often than normal? No Are you having any other symptoms that your PCP needs to know about? No Symptom Escalation The patient required an escalation for symptom(s)? No Medications Do you have any questions about taking your medication or which medications you should be on? No Do you need any medication refills at this time, including any of the medications you might take only when needed? No Social We would like to make sure you have what you need so that your basic needs are met- including your personal safety, food, housing and medications? Would you like to speak with a social work team supervisor to help give you support for any of these needs? No It can be normal to feel anxious or down during a time like this. Would you like to talk to a mental health professional about how you have been feeling? No Closing Thank you for taking the time to talk with me today. We want to work with you to ensure that we arekeeping your medical condition(s) well-controlled and to keep you healthy and out of the doctor's office or hospital. It s also not too late for me to sign you up for automated weekly questionnaires through [employer]. This is an easy way for us to stay connected each week. Are you interested? No, I understand. We can always sign you up in the future if you change your mind. Just as a reminder, will continue to call you every other week to check in on your health. Our calls should take 10-15 minutes or less. Remember, if you have concerns in between our calls, please call your PCP's office right away. Thank you. Enter next patient outreach date for two weeks on the same day of the week as today in the Track PtOutreach and End outreach. documented in this encounterRegency [facility]07-18-2022 Miscellaneous Notes* Telephone Encounter - Airam Ayon RN - 12/20/2021 1:15 PM EDT Patient has been identified by name and date of : Yes Patient phones for refill(s): Pending Prescriptions Disp Refills WARFARIN 4 MG TABLET 90 tablet 3 Si mg on MWF, 2 mg all other days or as directed ERIN: No Date of last office visit with pcp: 10/04/21 Date of last office visit in primary care: Last 2 Encounter Wt Readings: Date: Wt: 10/04/2021 59.4 kg (131 lb) 08/25/2021 61.2 kg (135 lb) Previous labs/tests for medication: Coumadin: PT INR (no units) Date Value 09/16/2021 1.1 INR (POCT) (no units) Date Value 12/16/2021 2.7 Please advise. Thank you. Airam Ayon, RN documented in this encounterRegency Hospital [facility]07-14-2022 History of Present illness Narrative* Wes Bonilla MD - 12/16/2021 2:36 PM EDT agree * Yanely Posadas RN - 12/16/2021 2:06 PM EDT patient had inr completed at [facility] patients inr is 2.7 (patients inr range is 2.0-3.0) patient is currently taking 4mg Mon,Fri and 2mg all other days patients last dose change was on 10/11/21 due to a high level of 3.5 (dose at that time was 4mg Mon,Wed,Fri and 2mg all other days) patient has had no changes in medication and no missed doses and no change in diet Advised patient to continue on the same dose(s) and that they would only be contacted regarding dosage and follow up instructions after review with provider, if a change is needed. Written instructions given and patient verbalized understanding. Presently scheduled in 4 weeks (01/13/22) for follow up INR. documented in this encounterRegency [facility]06-16-2022 History of Present illness Narrative* Wes Bonilla MD - 11/18/2021 1:43 PM EDT agree * Yanely Posadas RN - 11/18/2021 1:24 PM EDT patient had inr completed at [facility] patients inr is 2.6 (patients inr range is 2.0-3.0) patient is currently taking 4mg Mon,Fri and 2mg all other days patients last dose change was on 10/11/21 due to a high level of 3.5 (dose at that time was 4mg Mon,Wed,Fri and 2mg all other days) patient has had no changes in medication and no missed doses and no change in diet Advised patient to continue on the same dose(s) and that they would only be contacted regarding dosage and follow up instructions after review with provider, if a change is needed. Written instructions given and patient verbalized understanding. Presently scheduled in 4 weeks (12/16/21) for follow up INR. documented in this encounterRegency [facility]06-07-2022 History of Present illness Narrative* Elisabeth Canchola RN - 11/09/2021 12:17 PM EDT INSIGHT CDM TELEPHONIC OUTREACH Provider Action/FYI: Pt reports she is doing good, was seen by cardiology yesterday, [facility], heart rate wasin the 40's, Metoprolol was decreased to 50 mg twice daily. Patient is also checking BP/HR daily, has not yet checked today. Advised patient to check around the same time everyday. Pt has follow up appt with cardiology in February. Pt had no questions, concerns, needs at this time. Pt aware FYI will be sent to pcp. Contact made with patient: Yes Patient identified by name and . Discussed care with patient It s nice talking to you again. As a reminder, this is our bi-weekly check-in where I will be asking you questions about your health. This will only take a few minutes of your time. Is this a good time? Yes Symptoms What Chronic Disease(s) does the patient have: COPD Do you check your blood pressures at home? No Do you have new or worse shortness of breath with activity? No Do you have new or worsening cough? No Do you have new or worsening wheezing? No Do you need to use your rescue (Albuterol) inhaler or nebulizer more often than normal? No Are you having any other symptoms that your PCP needs to know about? No Symptom Escalation The patient required an escalation for symptom(s)? No Medications Do you have any questions about taking your medication or which medications you should be on? No Do you need any medication refills at this time, including any of the medications you might take only when needed? No Social We would like to make sure you have what you need so that your basic needs are met- including your personal safety, food, housing and medications? Would you like to speak with a social work team supervisor to help give you support for any of these needs? No It can be normal to feel anxious or down during a time like this. Would you like to talk to a mental health professional about how you have been feeling? No Closing Thank you for taking the time to talk with me today. We want to work with you to ensure that we arekeeping your medical condition(s) well-controlled and to keep you healthy and out of the doctor's office or hospital. It s also not too late for me to sign you up for automated weekly questionnaires through [employer]. This is an easy way for us to stay connected each week. Are you interested? No, I understand. We can always sign you up in the future if you change your mind. Just as a reminder, will continue to call you every other week to check in on your health. Our calls should take 10-15 minutes or less. Remember, if you have concerns in between our calls, please call your PCP's office right away. Thank you. Enter next patient outreach date for two weeks on the same day of the week as today in the Track PtOutreach and End outreach. documented in this encounterRegency Hospital [facility]06-06-2022 History of Present illness Narrative* Elisabeth Canchola RN - 11/08/2021 3:04 PM EDT INSIGHT CD TELEPHONIC OUTREACH Provider Action/FYI: Contact made with patient: No - Left message Eddie my name is Elisabeth Canchola RN your [employer] [facility] I am calling today for your bi-weekly check in. I am sorry I missed your call. I will reach out to you again tomorrow. (if the third call I will reach out to you again next week) Enter next patient outreach date for the following day using the Track Pt Outreach. End outreach. documented in this encounterRegency [facility]05-31-2022 History of Present illness Narrative* Wes Bonilla MD - 11/02/2021 2:14 PM EDT agree * Yanely Posadas RN - 11/02/2021 1:53 PM EDT patient had inr completed at [facility] patients inr is 3.0 (patients inr range is 2.0-3.0) patient is currently taking 4mg MonFri and 2mg all other days patients last dose change was on 10/11/21 due to a high level of 3.5 (dose at that time was 4mg MonWedFri and 2mg all other days) patient has had no changes in medication and no missed doses and no change in diet Advised patient to continue on the same dose(s) and that they would only be contacted regarding dosage and follow up instructions after review with provider, if a change is needed. Written instructions given and patient verbalized understanding. Presently scheduled in 2 weeks (11/18/21) for follow up INR since patient is on the high end of normal [facility] History of Present illness Narrative* Elisabeth Canchola RN - 10/25/2021 1:22 PM EDT PRIMARY CARE COORDINATION QUICK NOTE Provider Action/CAROLYN Spoke to pt, relayed message from pcp. Pt had no further questions, concerns, needs at this time. Patient identified by name and date . Elisabeth Canchola RN Accounting Reconciliation Clerk * Wes Bonilla MD - 10/25/2021 1:10 PM EDT Bmp was stable. * Elisabeth Canchola RN - 10/25/2021 12:50 PM EDT [facility]RE[facility] Provider Action/FYI: Pt reports she is doing good, had PFT's completed on Monday with Dr Mariee, states everything looked good, has 6 minute walk test tomorrow. Pt had labs completed 10/18/21, inquiring about results. Thank you. Pt had no questions, concerns, needs at this time. Contact made with patient: Yes Patient identified by name and . Discussed care with patient It s nice talking to you again. As a reminder, this is our bi-weekly check-in where I will be asking you questions about your health. This will only take a few minutes of your time. Is this a good time? Yes Symptoms What Chronic Disease(s) does the patient have: COPD Do you check your blood pressures at home? No Do you have new or worse shortness of breath with activity? No Do you have new or worsening cough? No Do you have new or worsening wheezing? No Do you need to use your rescue (Albuterol) inhaler or nebulizer more often than normal? No Are you having any other symptoms that your PCP needs to know about? No Symptom Escalation The patient required an escalation for symptom(s)? No Medications Do you have any questions about taking your medication or which medications you should be on? No Do you need any medication refills at this time, including any of the medications you might take only when needed? No Social We would like to make sure you have what you need so that your basic needs are met- including your personal safety, food, housing and medications? Would you like to speak with a social work team supervisor to help give you support for any of these needs? No It can be normal to feel anxious or down during a time like this. Would you like to talk to a mental health professional about how you have been feeling? No Closing Thank you for taking the time to talk with me today. We want to work with you to ensure that we arekeeping your medical condition(s) well-controlled and to keep you healthy and out of the doctor's office or hospital. It s also not too late for me to sign you up for automated weekly questionnaires through [employer]. This is an easy way for us to stay connected each week. Are you interested? No, I understand. We can always sign you up in the future if you change your mind. Just as a reminder, will continue to call you every other week to check in on your health. Our calls should take 10-15 minutes or less. Remember, if you have concerns in between our calls, please call your PCP's office right away. Thank you. Enter next patient outreach date for two weeks on the same day of the week as today in the Track PtOutreach and End outreach. documented in this encounterReg[facility] History of Present illness Narrative* Wes Bonilla MD - 10/18/2021 1:16 PM EDT agree * Yanely Posadas RN - 10/18/2021 1:13 PM EDT patient had inr completed at [facility] patients inr is 2.2 (patients inr range is 2.0-3.0) patient is currently taking 4mg Mon,Fri and 2mg all other days patients last dose change was on 10/11/21 due to a high level of 3.5 (dose at that time was 4mg Mon,Wed,Fri and 2mg all other days) patient has had no changes in medication except for coumadin and no uninstructed missed doses and no change in diet Advised patient to continue on the same dose(s) and that they would only be contacted regarding dosage and follow up instructions after review with provider, if a change is needed. Written instructions given and patient verbalized understanding. Presently scheduled in 2 weeks (11/02/21) for follow up INR since this is the first normal reading since dose change documented in this encounterReg[facility]22 History of Present illness Narrative* Debbie Long Ma - 10/11/2021 3:10 PM EDT Patient instructed of dosage with teach back method. Verbalizes understanding. * Wes Bonilla MD - 10/11/2021 1:44 PM EDT Hold x 1 day, then begin 4 mg on M and F, 2 mg a day rest of the week. Recheck one week * Yanely Posadas RN - 10/11/2021 1:32 PM EDT patient had inr completed at [facility] patients inr is 3.5 (patients inr range is 2.0-3.0) patient is currently taking 4mg Mon,Wed,Fri and 2mg all other days patients last dose change was on 10/04/21 due to a high level of 4.2 (dose at that time was 2mg Mon,Wed,Fri and 4mg all other days) patient has had no changes in medication except for coumadin and no uninstructed missed doses and no change in diet FYI - patient has been instructed to hold coumadin until contacted Advised patient that they would be contacted regarding medication dose and when to follow up after information is reviewed by provider. After provider review please contact the patient with information and schedule follow up appointment with coumadin clinic. FYI- patient has been scheduled for a 1 week follow up inr on 10/18/21 documented in this encounterReg[facility]-09-2022 Miscellaneous Notes* Telephone Encounter - Elisabeth Canchola RN - 10/11/2021 12:04 PM EDT Last OV 10/04/21 Next OV 01/04/22 Patient phones requesting refills as follows: Pending Prescriptions Disp Refills METOPROLOL TARTRATE 100 MG TABLET 180 tablet 3 Sig: Take 1 tablet by mouth twice daily. ERIN: No Please review and advise. Elisabeth Canchola RN documented in this encounterReg[facility]05-09-2022 History of Present illness Narrative* Elisabeth Canchola RN - 10/11/2021 11:46 AM EDT [facility] Provider Action/FYI: Pt reports she is doing good, no questions/concerns/needs at this time. Contact made with patient: Yes Patient identified by name and . Discussed care with patient It s nice talking to you again. As a reminder, this is our bi-weekly check-in where I will be asking you questions about your health. This will only take a few minutes of your time. Is this a good time? Yes Symptoms What Chronic Disease(s) does the patient have: COPD Do you check your blood pressures at home? No Do you have new or worse shortness of breath with activity? No Do you have new or worsening cough? No Do you have new or worsening wheezing? No Do you need to use your rescue (Albuterol) inhaler or nebulizer more often than normal? No Are you having any other symptoms that your PCP needs to know about? No Symptom Escalation The patient required an escalation for symptom(s)? No Medications Do you have any questions about taking your medication or which medications you should be on? No Do you need any medication refills at this time, including any of the medications you might take only when needed? Yes Social We would like to make sure you have what you need so that your basic needs are met- including your personal safety, food, housing and medications? Would you like to speak with a social work team supervisor to help give you support for any of these needs? No It can be normal to feel anxious or down during a time like this. Would you like to talk to a mental health professional about how you have been feeling? No Closing Thank you for taking the time to talk with me today. We want to work with you to ensure that we arekeeping your medical condition(s) well-controlled and to keep you healthy and out of the doctor's office or hospital. It s also not too late for me to sign you up for automated weekly questionnaires through [employer]. This is an easy way for us to stay connected each week. Are you interested? No, I understand. We can always sign you up in the future if you change your mind. Just as a reminder, will continue to call you every other week to check in on your health. Our calls should take 10-15 minutes or less. Remember, if you have concerns in between our calls, please call your PCP's office right away. Thank you. Enter next patient outreach date for two weeks on the same day of the week as today in the Track PtOutreach and End outreach. documented in this encounterReg[facility]05-04-2022 Miscellaneous Notes* Telephone Encounter - Jennifer Kimball Ma - 10/06/2021 9:55 AM EDT Called pt and notified her of results and recommendation of PCP below. Pt verbalized understanding. Jennifer Kimball Ma * Telephone Encounter - Wes Bonilla MD - 10/06/2021 8:34 AM EDT Her labs are stable. Kidney function is slightly lower probably secondary to her lasix which she needs. Recheck bmp, a1c in two weeks. documented in this encounterReg[facility]-03-2022 Miscellaneous Notes* Telephone Encounter - Mimi Feldman LPN - 10/05/2021 10:56 AM EDT Patient notified. Verbalized understanding. Faxed results * Telephone Encounter - Mimi Feldman LPN - 10/05/2021 10:55 AM EDT ----- Message from Wes Bonilla MD sent at 10/04/2021 4:39 PM EDT ----- Let her know fluid on her chest xray looks improved. Send a copy of xray to [facility]. documented in this encounterRegency [facility]05-02-2022 Instructions* Patient Instructions* Wes Bonilla MD - 10/04/2021 2:52 PM EDT Hold coumadin today, then start 2 mg a day, except 4 mg on Monday, Mon, Monday. Recheck inr in one week documented in this encounterReg[facility]05-02-2022 History of Present illness Narrative* Wes Bonilla MD - 10/04/2021 2:51 PM EDT Hold x 1 day, then 4 mg MWF, 2 mg a day rest of the week. Recheck one week. Patient notified. * Yanely Posadas RN - 10/04/2021 12:04 PM EDT patient had inr completed at [facility] patients inr is 4.2 (patients inr range is 2.0-3.0) patient is currently taking 4mg Tues,Thurs,Sat,Sun and 2mg all other days patients last dose change was unknown patient has had no changes in medication and no missed doses and no change in diet FYI- patient does have appt this afternoon with pcp at 240 Advised patient that they would be contacted regarding medication dose and when to follow up after information is reviewed by provider. After provider review please contact the patient with information and schedule follow up appointment with coumadin clinic. FYI- patient has been scheduled for a 1 week follow up inr on 10/11/21 documented in this encounterReg[facility]-02-2022 History of Present illness Narrative* Wes Bonilla MD - 10/04/2021 2:36 PM EDT Patient presents with: 6 Month Exam HPI: Patient presents today for office visit for follow up. CT showed healing ischemia or infarct and changes to due previous pyelonephritis. Did not feel the renal issues represented a mass. Saw cardiology in August. She had a discussion regarding possible cardioversion but was reluctant atthat time. 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 Again. Is overdue for colonoscopy and has a thyroid nodule that she was referred to Dr. Evans for and has not gone yet. Has a hx of colon polyps as well. She still has not done the pulmonary testing yet. Does it this month and follows up with Dr Garcia/Kodi in November. She feels her breathing is doing much better. No cough or chest pain or edema. No weight gain. No dizziness or syncope. INR is up today. Is up today. No bleeding issues. Discussed close follow up. See previous ov, copied and pasted from [facility] on 08/25/21: Labs from last ov showed an elevated crp but rest of labs were ok. Saw cardiology and pulmonary since last here. She was to have spirometry and six minute walk and tosee pulmonary in three months. She sees cardiology again in four to six weeks. She did see urology. They are concerned about malignancy. They are waiting to hear from insurance. See above regarding shortness of breath. No chest pain No palpitations. No edema. She is compliant with all of her meds. Previous thoracentesis was negative on all of her cultures. It was exudative and was negative for cytology when looking for malignancy. They had questioned whether or not she was having rheumatological issues however she has no excessive arthralgias etc today. We also still need to have her follow with Dr. Evans for her thyroid and colonscopy. She asks to wait right now. She is off the lovenox. Now on coumadin. Getting inr today. No bloody urine or bowel changes. See last ov, copied and pasted Very complicated patient. INTERIM HX: Did see urogyn while in hospital for cyst and renal infarcts. She recommended following with Dr. Calvin. The patient says that is set up. She sees pulmonary/Critical care this week and Dr. Nikunj Beard. She did have a transthoracic echo as well. She also was supposed to see Dr. Abimael Evans for reviewing her thyroid nodule for FNA. She did notkeep the appt. Also has a hx of colon polypectomy in 2014. Have recommended in the past. Suggested she could see Dr. Evans for both. Did review that work up for malignancy may be needed. She wants to see pulmonary and cardiology first. No current chest pain or shortness of breath. No orthopnea. No increased edema. No new back or stomach pain. No dizziness or palpitations. No cough or hemoptysis. No bleeding or bruising issues. She wants to stop the lovenox. We had a lengthy conversation regarding importance of keeping her anticoagulated. We could switch her to a DOAC however in the long run cost would be worse. Also reinforced the absolute importance of close follow up. ASSESSMENT/PLAN: 1. Pleural effusion, right - ICD9: 511.9, ICD10: J90 (primary diagnosis) - check labs. See pulmonary. ? Need to see rheum. Await their evaluation. 2. Paroxysmal atrial fibrillation (HCC) - ICD9: 427.31, ICD10: I48.0 - reinforced need to see cardiology and remain on meds and anticoagulation. 3. Hypertension, essential - ICD9: 401.9, ICD10: I10 - good control - Continue current medication(s) - Goal of BP <130/80 4. Pulmonary hypertension (HCC) - ICD9: 416.8, ICD10: I27.20 - as above. Likely requires RHC. 5. History of polymyalgia rheumatica - ICD9: V13.59, ICD10: Z87.39 - check labs. - SED RATE WESTERGREN - C-REACTIVE PROTEIN (CRP) - ROSA ISELA BY IFA SCREEN - RHEUMATOID FACTOR BL 6. Chronic anticoagulation - ICD9: V58.61, ICD10: Z79.01 - as above. 7. 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 - await work up. - CBC - BASIC METABOLIC PNL 8. Renal infarct (HCC) - ICD9: 593.81, ICD10: N28.0 - CBC - BASIC METABOLIC PNL 9. Recurrent right pleural effusion - ICD9: 511.9, ICD10: J90 10. Atrial fibrillation, unspecified type (HCC) - ICD9: 427.31, ICD10: I48.91 - CBC - BASIC METABOLIC PNL 11. Complex renal cyst - ICD9: 753.10, ICD10: N28.1 - see urology 12. Thyroid nodule - ICD9: 241.0, ICD10: E04.1 - asks to wait to see surgery for follow up. Reinforced importance of doing so. See in three weeks to discuss further. 13. History of colonic polyps - ICD9: V12.72, ICD10: Z86.010 - as above. Likely needs colonoscopy to help rule out malignancy etc. MEDICATIONS: Current Outpatient Medications Medication Sig furosemide (LASIX) 40 mg tablet Take 1 tablet by mouth twice daily. furosemide (LASIX) 40 mg tablet Take 1 tablet by mouth twice daily. amiodarone (PACERONE) 200 mg tablet Take 1 tablet by mouth once daily. metoprolol tartrate, short acting, (LOPRESSOR) 100 mg tablet Take 1 tablet by mouth twice daily. WALKER ROLLATOR SEAT WITH 6 WHEELS - RED Daily use R26.81 Gait instability (primary encounter diagnosis) potassium chloride 20 mEq TbER Take 1 tablet by mouth twice daily. warfarin (COUMADIN) 4 mg tablet 4 mg on MWF, 2 mg all other days or as directed (Patient taking differently: 4 mg on THSS, 2 mg all other days or as directed ) omeprazole (PRILOSEC) 40 mg capsule Take 1 capsule by mouth once daily. albuterol HFA (PROVENTIL HFA, VENTOLIN HFA) 90 mcg/actuation inhaler Inhale 2 Puffs as instructed every 4 hours as needed. diltiazem CD (CARTIA XT) 120 mg 24 hr capsule Take 2 capsules by mouth once daily. 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 MULTIVITAMIN ORAL Take by mouth. No current facility-administered medications for this visit. ALLERGIES: ALLERGIES Allergen Reactions Crestor [Rosuvastat* Other: See Comments Myalgia. Ibuprofen Other: See Comments dizzy Prevnar 13 [Pneumoc* Rash Presumed reaction to Prevnar. Latex Rash Local contact rash. PAST MEDICAL HISTORY Diagnosis Date A-fib ([facility]) Class 1 congestive heart failure, unspecified failure chronicity, systolic (HCC) 11/21/2019 Dysphagia, unspecified(787.20) Esophageal reflux Esophagitis, unspecified Marfan's syndrome Moderate mitral regurgitation 06/18/2021 04/27/21 Echo at [facility]. Pleural effusion, right 05/05/2020 CXR 11/18/19 and 05/04/20. Unspecified essential hypertension PAST SURGICAL HISTORY Procedure Laterality Date COLONOSCOPY FLX DX W/COLLJ SPEC WHEN PFRMD 10/16/14 Colonoscopy EGD TRANSORAL BIOPSY SINGLE/MULTIPLE 01/13/09 ESOPHAGOGASTRODUODENOSCOPY TRANSORAL DIAGNOSTIC 10/16/14 EGD FNA WITH IMAGING 03/16/11 U/S FNA left mid/lower lobe thyroid nodule MAMMOGRAM BILATERAL August 2010? PAST SURGICAL HISTORY OF tubial pregnacy/tube removed PAST SURGICAL HISTORY OF eye surgery bilateral TOTAL ABDOMINAL HYSTERECT W/WO RMVL TUBE OVARY Hysterectomy, [place] FAMILY HISTORY Problem Relation Age of Onset Diabetes Mother Cancer Mother other (marfan syndrome) Mother GI Father ulcer Diabetes Sister other (marfan syndrome) Brother x2 Stroke Maternal Grandmother Hypertension Sister Hypertension Brother COPD Brother Emphysema COPD Daughter Emphysema Social History Tobacco Use Smoking status: Never Smoker Smokeless tobacco: Never Used Tobacco comment: Spouse smoked cigars in home until about 2003. Vaping Use Vaping Use: Never used Substance Use Topics Alcohol use: No Drug use: No Reviewed current medications, allergies, past medical history, surgical history, family history andsocial history today. REVIEW OF SYSTEMS Has occasional mid to lwoer back pain. Worse with lifting. Is good today. Stated a few weeks ago. No trauma. No radicular symptoms. Red flags for re-assessment reviewed with patient in detail. All other reviewed and negative other than HPI. HEALTH MAINTENANCE: Reviewed health maintenance issues today and recommended the following in detail. ADVANCE DIRECTIVE DISCUSSION -Discussed advanced planning with patient today. They have a DPOA/Living Will:No Chosen surrogate for decision maker:NA Blank DPOA/Living Will forms given:will give Reminded patients to have copies of their forms brought into the office to have placed in their medical records. Questions were answered. VITALS: BP 118/76 Pulse 60 Resp 16 Wt 59.4 kg (131 lb) SpO2 96% BMI 25.38 kg/m Last 4 Encounter Wt Readings: Date: Wt: 08/25/2021 61.2 kg (135 lb) 08/04/2021 59.9 kg (132 lb) 07/01/2021 60.8 kg (134 lb) 06/30/2021 59.4 kg (131 lb) PHYSICAL EXAMINATION: General appearance: Well appearing, alert, in no acute distress, well-hydrated, well nourished. Skin: Skin color, texture, turgor normal, no suspicious rashes or lesions Head: Normocephalic, no masses, lesions, tenderness or abnormalities Lungs: breathing comfortably. Decreased BS in right base Heart: irregular today which is chronic. Normal S1 and S2 Abdomen: Normal abdominal exam, Abdomen soft, non-tender. Bowel sounds normal. No masses, organomegaly Extremities: No deformities, edema, skin discoloration, clubbing or cyanosis. Good capillary refill. Musculoskeletal: No joint swelling, deformity, or tenderness Peripheral pulses: Normal Neuro: Negative. Back. wnl ASSESSMENT/PLAN: 1. Thyroid nodule - ICD9: 241.0, ICD10: E04.1 (primary diagnosis) - CONSULT TO GENERAL SURGERY 2. History of colonic polyps - ICD9: V12.72, ICD10: Z86.010 - CONSULT TO GENERAL SURGERY 3. Paroxysmal atrial fibrillation (HCC) - ICD9: 427.31, ICD10: I48.0 - adjust inr as above. Follow with surgery. 4. Hypertension, essential - ICD9: 401.9, ICD10: I10 - good control - Continue current medication(s) - Goal of BP <130/80 5. Pulmonary hypertension (HCC) - ICD9: 416.8, ICD10: I27.20 Per pulmonary and cardiology. 6. Hyperlipidemia, unspecified hyperlipidemia type - ICD9: 272.4, ICD10: E78.5 - good control - Continue current medication. - CBC + DIFF - COMP METABOLIC PANEL 7. Pleural effusion, right - ICD9: 511.9, ICD10: J90 - recheck xray - XR CHEST 2V FRONTAL/LAT 8. Prediabetes - ICD9: 790.29, ICD10: R73.03 - check labs. - HGB A1C 9. Medication monitoring encounter - ICD9: V58.83, ICD10: Z51.81 - TSH BLD Wes Bonilla RTO in three months and prn. documented in this encounterRegency [facility]22 History of Present illness Narrative* Elisabeth Canchola RN - 09/27/2021 12:01 PM EDT [facility] Provider Action/FYI: Pt reports she is doing good, no questions/concerns/needs at this time. Contact made with patient: Yes Patient identified by name and . Discussed care with patient It s nice talking to you again. As a reminder, this is our bi-weekly check-in where I will be asking you questions about your health. This will only take a few minutes of your time. Is this a good time? Yes Symptoms What Chronic Disease(s) does the patient have: COPD Do you check your blood pressures at home? No Do you have new or worse shortness of breath with activity? No Do you have new or worsening cough? No Do you have new or worsening wheezing? No Do you need to use your rescue (Albuterol) inhaler or nebulizer more often than normal? No Are you having any other symptoms that your PCP needs to know about? No Symptom Escalation The patient required an escalation for symptom(s)? No Medications Do you have any questions about taking your medication or which medications you should be on? No Do you need any medication refills at this time, including any of the medications you might take only when needed? No Social We would like to make sure you have what you need so that your basic needs are met- including your personal safety, food, housing and medications? Would you like to speak with a social work team supervisor to help give you support for any of these needs? No It can be normal to feel anxious or down during a time like this. Would you like to talk to a mental health professional about how you have been feeling? No Closing Thank you for taking the time to talk with me today. We want to work with you to ensure that we arekeeping your medical condition(s) well-controlled and to keep you healthy and out of the doctor's office or hospital. It s also not too late for me to sign you up for automated weekly questionnaires through [employer]. This is an easy way for us to stay connected each week. Are you interested? No, I understand. We can always sign you up in the future if you change your mind. Just as a reminder, will continue to call you every other week to check in on your health. Our calls should take 10-15 minutes or less. Remember, if you have concerns in between our calls, please call your PCP's office right away. Thank you. Enter next patient outreach date for two weeks on the same day of the week as today in the Track PtOutreach and End outreach. documented in this encounterReg[facility] Miscellaneous Notes* Telephone Encounter - Isaiah Skinner LPN - 09/20/2021 2:06 PM EDT Pt notified. She verbalized understanding. Isaiah Skinner LPN * Telephone Encounter - Dalila Jensen APRN.TRICIA - 09/20/2021 1:52 PM EDT INR order placed. Dalila Jensen APRN.TRICIA * Telephone Encounter - Myah Dunn RN - 09/20/2021 1:47 PM EDT Patient was instructed to have INR checked today but needs INR order placed in lab. Please phone patient to let her know when order is in the lab and she will come in to have blood draw. Reports she no longer has a [facility] nurse. documented in this encounterReg[facility]04-14-2022 Miscellaneous Notes* Telephone Encounter - Debbie Long Ma - 09/16/2021 10:35 AM EDT Spoke with nurse at [facility] [employer] and relayed coumadin instructions and follow up. She will advise pt. Debbie Long Ma * Telephone Encounter - Wes Bonilla MD - 09/16/2021 10:29 AM EDT 5 mg today, then starting tomorrow 4 mg THSS, 2 mg a day rest of the week. Recheck Monday * Telephone Encounter - Yolis Tran RN - 09/16/2021 10:19 AM EDT [facility] called and reports that Pt had held her Coumadin for [address] Calvin. They had done a repeat renal scan and found that there was no area to biopsy. The provider said it must have been an infection or an infarct. They were wanting to know if the provider wanted to restart the Coumadin, and at what dosing. Providers nurse was putting in INR information, and was goingto call the patient back. documented in this encounterReg[facility]04-14-2022 Miscellaneous Notes* Telephone Encounter - Wes Bonilla MD - 09/16/2021 10:30 AM EDT See other te * Telephone Encounter - Luz Dupree Ma - 09/16/2021 10:24 AM EDT Last INR: PT INR 1.1 09/16/2021 Current dose of coumadin is: HOLD take 4 mg TTSS and 2 mg all other days Last date of dose change: 09/09/21. Previous INR (date and result): 4.6 Additional Clinical Information or narrative: yes: Did not have BX today. On repeat US area of concern was not there. documented in this encounterRegency [facility]04-07-2022 History of Present illness Narrative* Wes Bonilla MD - 09/09/2021 5:18 PM EDT agree * Debbie Long Ma - 09/09/2021 2:56 PM EDT Patient notified today she is having a biopsy on . She was advised to hold coumadin for [address] Bonilla and advised she can hold now until procedure. * Wes Bonilla MD - 09/09/2021 2:15 PM EDT Now high. Hold today and tomorrow. Really watch diet closely. Change to 2 mg a day, except 4 mg MWF. Recheck on Mon next week * Yanely Posadas RN - 09/09/2021 2:06 PM EDT patient had inr completed at [facility] patients inr is 4.6 (patients inr range is 2.0-3.0) patient is currently taking 2mg Mon,Wed,Fri and 4mg all other days patients last dose change was on 08/10/21 due to a low level of 1.9 (dose at that time was 4mg Mon,Wed,Fri and 2mg all other days) patient has had no changes in medication and no missed doses and no change in diet FYI- patient has been instructed to hold coumadin until contacted Advised patient that they would be contacted regarding medication dose and when to follow up after information is reviewed by provider. After provider review please contact the patient with information and schedule follow up appointment with coumadin clinic. FYI- CC is closed next week documented in this encounterRegency [facility]03-29-2022 History of Present illness Narrative* Elisabeth Canchola RN - 08/31/2021 10:39 AM EDT [facility] TELEPHONIC OUTREACH Provider Action/FYI: Pt reports she is doing good, waiting for home care nurse, had no questions/concerns/needs at this time. Contact made with patient: Yes Patient identified by name and . Discussed care with patient It s nice talking to you again. As a reminder, this is our bi-weekly check-in where I will be asking you questions about your health. This will only take a few minutes of your time. Is this a good time? Yes Symptoms What Chronic Disease(s) does the patient have: COPD Do you check your blood pressures at home? No Do you have new or worse shortness of breath with activity? No Do you have new or worsening cough? No Do you have new or worsening wheezing? No Do you need to use your rescue (Albuterol) inhaler or nebulizer more often than normal? No Are you having any other symptoms that your PCP needs to know about? No Symptom Escalation The patient required an escalation for symptom(s)? No Medications Do you have any questions about taking your medication or which medications you should be on? No Do you need any medication refills at this time, including any of the medications you might take only when needed? No Social We would like to make sure you have what you need so that your basic needs are met- including your personal safety, food, housing and medications? Would you like to speak with a social work team supervisor to help give you support for any of these needs? No It can be normal to feel anxious or down during a time like this. Would you like to talk to a mental health professional about how you have been feeling? No Closing Thank you for taking the time to talk with me today. We want to work with you to ensure that we arekeeping your medical condition(s) well-controlled and to keep you healthy and out of the doctor's office or hospital. It s also not too late for me to sign you up for automated weekly questionnaires through [employer]. This is an easy way for us to stay connected each week. Are you interested? No, I understand. We can always sign you up in the future if you change your mind. Just as a reminder, will continue to call you every other week to check in on your health. Our calls should take 10-15 minutes or less. Remember, if you have concerns in between our calls, please call your PCP's office right away. Thank you. Enter next patient outreach date for two weeks on the same day of the week as today in the Track PtOutreach and End outreach. documented in this encounterRegency [facility]03-23-2022 Miscellaneous Notes* Telephone Encounter - Cadence Runkle KIER TENDER - 08/25/2021 5:35 PM EDT Patient was notified. * Telephone Encounter - Wes Bonilla MD - 08/25/2021 5:25 PM EDT Same. Recheck two weeks. * Telephone Encounter - Cadence Bustillo LPN - 08/25/2021 5:01 PM EDT INR 2.9 Current dose 4mg TTSS and 2 mg all other days documented in this encounterRegency [facility]03-23-2022 Miscellaneous Notes* Telephone Encounter - Cadence Bustillo LPN - 08/25/2021 5:32 PM EDT Patient notified and verbalizes understanding. * Telephone Encounter - Isaiah Skinner LPN - 08/25/2021 4:52 PM EDT TC to pt, no answer, unable to leave message. Labs still in process, unable to send results to Dr. Mariee, but did send office note and copy of the message below electronically to Dr. Mariee's office. Isaiah Skinner LPN * Telephone Encounter - Wes Bonilla MD - 08/25/2021 4:12 PM EDT Her fluid looks like it may be getting worse again. Take an additional dose of lasix today and tomorrow . She is seeing Dr. Garcia, pulmonary at [facility] now. Can we fax to them and see if they can get herback in soon. Call immediately if any worsening shortness of breath, cough or fever. documented in this encounterRegency Hospital [facility]03-03-2022 Miscellaneous Notes* Telephone Encounter - Nay Cottrell RN - 08/05/2021 9:53 AM EST Spoke to Evelyn with [facility]. Reviewed all lab orders provider is requesting as well as INR stat order. Evelyn verbalizes understanding. Nay Cottrell RN * Telephone Encounter - Myah Dunn RN - 08/05/2021 9:42 AM EST Deisy- [facility]- phoned to confirm lab orders. Received all the orders except the INR. Reports nurseis at patient's home now. Will call nurse and have her get the INR also. documented in this encounterRegency [facility]03-01-2022 Miscellaneous Notes* Telephone Encounter - KASSIE Alavrez - 08/03/2021 3:00 PM EST Sw spoke with patient and provided her with [employer] phone number to check on help with lovenox cost. Patient notes that she is checking with her daughter right now and seeing if she can loanher money to apple picker a few days worth of Lovenox. She will also check with [employer] as wellfor help with cost of lovenox for a few days if she needs to continue with medication. Sw noted that if patient needs to be on for extended amount of time can check [employer] for coupon and also [employer] has a pap program for lovenox . Could see about patient eligibility for that program. Patient notes that she will ask daughter and then see about [employer] for the immediate time. Patient has appt with Dr. Bonilla for tomorrow and will see where she is at with having to take lovenox. * Telephone Encounter - Wes Bonilla MD - 08/03/2021 2:46 PM EST Thank you * Telephone Encounter - Debbie Long Ma - 08/03/2021 2:32 PM EST Spoke with pharmacist. One day's worth is 21.54. Patient will try to get a few days worth. Can we see if there is any help to cover cost of co-pay? * Telephone Encounter - Wes Bonilla MD - 08/03/2021 2:13 PM EST I have no idea. Her body and its response to the loading of the coumadin is what is the deciding factor. As soon as I get her inr to 2.0 we will stop it. * Telephone Encounter - Ashley Wilkins LPN - 08/03/2021 2:10 PM EST Pt calls to report that the pharmacist said four days worth 1 shot bid would be $85. Pt reports shecannot afford this. Pt is asking how many days worth would she need. Ashley Wilkins LPN * Telephone Encounter - Debbie Long Ma - 08/03/2021 1:44 PM EST Pt is going to check with pharmacy and see if she can afford a few days worth. She will let us know. Please file a STAT INR order for tomorrow * Telephone Encounter - Wes Bonilla MD - 08/03/2021 1:13 PM EST Ok to do in am. If she cannot afford, she is at slight risk until we can get the inr up. Is she able to even afford a few more? * Telephone Encounter - Myah Dunn RN - 08/03/2021 1:09 PM EST Patient reports she ran out of the lovenox last night. Has none for today. Does not have the co-payof $100 to get a refill. Asking pcp to please advise. Patient will check with to see if they will draw her INR tomorrow. Asking if they are not coming tomorrow, can she go to the lab before her appt? Please phone patient with reply. * Telephone Encounter - Debbie Long Ma - 08/02/2021 4:52 PM EST Orders faxed to [facility]. Spoke with pt. Advised of dosage instructions. Pt states that she has 2 injections left and cannot afford the co-pay for another refill. Pt has appointment on . * Telephone Encounter - Wes Bonilla MD - 08/02/2021 4:39 PM EST Continue lovenox. 6 mg today and tomorrow. Recheck Wed * Telephone Encounter - Airam Ayon RN - 08/02/2021 3:38 PM EST Last INR: INR (POCT) 1.5 EXT 08/02/2021 Current dose of coumadin is: 4 mg Coumadin Mon/Mon/ Mon 2 mg all other days AND Lovenox 60 mg twicedaily Last date of dose change: 07/28/21 Previous INR (date and result): 07/30/21 1.3 EXT Received additional 2 mg Coumadin that day Additional Clinical Information or narrative: Please call [facility] [place] [place] at [phone] by 4 PM or Fax new orders to [phone] after 4PM. 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 Dysphagia, unspecified(787.20) 1 07/09/2017 documented as of this encounter (statuses as of 08/25/2021) [facility] of Past illness Narrative* Problem Noted Date Resolved Date Thoracic aorta atherosclerosis 03/23/2020 0 09/23/2020 Chronic systolic heart failure 11/21/2019 0 09/23/2020 Fatigue 11/24/2016 10/10/2017 Atrial fibrillation 01/14/2014 10/10/2017 Multiple thyroid nodules 03/03/2011 021 Hypertension 01/19/2011 06/23/2015 Esophagitis, unspecified 01/13/2009 018 Gastrointestinal malfunction arising from mental factors 12/09/2008 10/10/2017 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 Dysphagia, unspecified(787.20) 1 07/09/2017 documented as of this encounter (statuses as of 08/25/2021) [facility] of Past illness Narrative* Problem Noted Date Resolved Date Thoracic aorta atherosclerosis 03/23/2020 0 09/23/2020 Chronic systolic heart failure 11/21/2019 0 09/23/2020 Fatigue 11/24/2016 10/10/2017 Atrial fibrillation 01/14/2014 10/10/2017 Multiple thyroid nodules 03/03/20112 021 Hypertension 01/19/2011 06/23/2015 Esophagitis, unspecified 01/13/2009 018 Gastrointestinal malfunction arising from mental factors 12/09/2008 10/10/2017 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 Dysphagia, unspecified(787.20) 1 07/09/2017 documented as of this encounter (statuses as of 08/31/2021) [facility] of Past illness Narrative* Problem Noted Date Resolved Date Thoracic aorta atherosclerosis 03/23/2020 0 09/23/2020 Chronic systolic heart failure 11/21/2019 0 09/23/2020 Fatigue 11/24/2016 10/10/2017 Atrial fibrillation 01/14/2014 10/10/2017 Multiple thyroid nodules 03/03/2011 021 Hypertension 01/19/2011 06/23/2015 Esophagitis, unspecified 01/13/2009 018 Gastrointestinal malfunction arising from mental factors 12/09/2008 10/10/2017 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 Dysphagia, unspecified(787.20) 1 07/09/2017 documented as of this encounter (statuses as of 09/09/2021) [facility] of Past illness Narrative* Problem Noted Date Resolved Date Thoracic aorta atherosclerosis 03/23/2020 0 09/23/2020 Chronic systolic heart failure 11/21/2019 0 09/23/2020 Fatigue 11/24/2016 10/10/2017 Atrial fibrillation 01/14/2014 10/10/2017 Multiple thyroid nodules 03/03/2011 021 Hypertension 01/19/2011 06/23/2015 Esophagitis, unspecified 01/13/2009 018 Gastrointestinal malfunction arising from mental factors 12/09/2008 10/10/2017 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 Dysphagia, unspecified(787.20) 1 07/09/2017 documented as of this encounter (statuses as of 09/16/2021) [facility] of [facility] illness Narrative* Problem Noted Date Resolved Date Thoracic aorta atherosclerosis 03/23/2020 0 09/23/2020 Chronic systolic heart failure 11/21/2019 0 09/23/2020 Fatigue 11/24/2016 10/10/2017 Atrial fibrillation 01/14/2014 10/10/2017 Multiple thyroid nodules 03/03/2011 021 Hypertension 01/19/2011 06/23/2015 Esophagitis, unspecified 01/13/2009 018 Gastrointestinal malfunction arising from mental factors 12/09/2008 10/10/2017 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 Dysphagia, unspecified(787.20) 1 07/09/2017 documented as of this encounter (statuses as of 09/20/2021) [facility] of [facility] illness Narrative* Problem Noted Date Resolved Date Thoracic aorta atherosclerosis 03/23/2020 0 09/23/2020 Chronic systolic heart failure 11/21/2019 0 09/23/2020 Fatigue 11/24/2016 10/10/2017 Atrial fibrillation 01/14/2014 10/10/2017 Multiple thyroid nodules 03/03/2011 021 Hypertension 01/19/2011 06/23/2015 Esophagitis, unspecified 01/13/2009 018 Gastrointestinal malfunction arising from mental factors 12/09/2008 10/10/2017 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 Dysphagia, unspecified(787.20) 1 07/09/2017 documented as of this encounter (statuses as of 09/27/2021) [facility] of [facility] illness Narrative* Problem Noted Date Resolved Date Thoracic aorta atherosclerosis 03/23/2020 0 09/23/2020 Chronic systolic heart failure 11/21/2019 0 09/23/2020 Fatigue 11/24/2016 10/10/2017 Atrial fibrillation 01/14/2014 10/10/2017 Multiple thyroid nodules 03/03/20112 021 Hypertension 01/19/2011 06/23/2015 Esophagitis, unspecified 01/13/2009 018 Gastrointestinal malfunction arising from mental factors 12/09/2008 10/10/2017 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 Dysphagia, unspecified(787.20) 1 07/09/2017 documented as of this encounter (statuses as of 10/04/2021) [facility] Narrative* Problem Noted Date Resolved Date Thoracic aorta atherosclerosis 03/23/2020 0 09/23/2020 Chronic systolic heart failure 11/21/2019 0 09/23/2020 Fatigue 11/24/2016 10/10/2017 Atrial fibrillation 01/14/2014 10/10/2017 Multiple thyroid nodules 03/03/2011 021 Hypertension 01/19/2011 06/23/2015 Esophagitis, unspecified 01/13/2009 018 Gastrointestinal malfunction arising from mental factors 12/09/2008 10/10/2017 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 Dysphagia, unspecified(787.20) 1 07/09/2017 documented as of this encounter (statuses as of 10/04/2021) [facility] Narrative* Problem Noted Date Resolved Date Thoracic aorta atherosclerosis 03/23/2020 0 09/23/2020 Chronic systolic heart failure 11/21/2019 0 09/23/2020 Fatigue 11/24/2016 10/10/2017 Atrial fibrillation 01/14/2014 10/10/2017 Multiple thyroid nodules 03/03/2011 021 Hypertension 01/19/2011 06/23/2015 Esophagitis, unspecified 01/13/2009 018 Gastrointestinal malfunction arising from mental factors 12/09/2008 10/10/2017 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 Dysphagia, unspecified(787.20) 1 07/09/2017 documented as of this encounter (statuses as of 10/05/2021) [facility] Narrative* Problem Noted Date Resolved Date Thoracic aorta atherosclerosis 03/23/2020 0 09/23/2020 Chronic systolic heart failure 11/21/2019 0 09/23/2020 Fatigue 11/24/2016 10/10/2017 Atrial fibrillation 01/14/2014 10/10/2017 Multiple thyroid nodules 03/03/2011 021 Hypertension 01/19/2011 06/23/2015 Esophagitis, unspecified 01/13/2009 018 Gastrointestinal malfunction arising from mental factors 12/09/2008 10/10/2017 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 Dysphagia, unspecified(787.20) 1 07/09/2017 documented as of this encounter (statuses as of 10/06/2021) [facility] Narrative* Problem Noted Date Resolved Date Thoracic aorta atherosclerosis 03/23/2020 0 09/23/2020 Chronic systolic heart failure 11/21/2019 0 09/23/2020 Fatigue 11/24/2016 10/10/2017 Atrial fibrillation 01/14/2014 10/10/2017 Multiple thyroid nodules 03/03/2011 021 Hypertension 01/19/2011 06/23/2015 Esophagitis, unspecified 01/13/2009 018 Gastrointestinal malfunction arising from mental factors 12/09/2008 10/10/2017 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 Dysphagia, unspecified(787.20) 1 07/09/2017 documented as of this encounter (statuses as of 10/11/2021) [facility] Narrative* Problem Noted Date Resolved Date Thoracic aorta atherosclerosis 03/23/2020 0 09/23/2020 Chronic systolic heart failure 11/21/2019 0 09/23/2020 Fatigue 11/24/2016 10/10/2017 Atrial fibrillation 01/14/2014 10/10/2017 Multiple thyroid nodules 03/03/2011 021 Hypertension 01/19/2011 06/23/2015 Esophagitis, unspecified 01/13/2009 018 Gastrointestinal malfunction arising from mental factors 12/09/2008 10/10/2017 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 Dysphagia, unspecified(787.20) 1 07/09/2017 documented as of this encounter (statuses as of 10/11/2021) [facility] Narrative* Problem Noted Date Resolved Date Thoracic aorta atherosclerosis 03/23/2020 0 09/23/2020 Chronic systolic heart failure 11/21/2019 0 09/23/2020 Fatigue 11/24/2016 10/10/2017 Atrial fibrillation 01/14/2014 10/10/2017 Multiple thyroid nodules 03/03/20112 021 Hypertension 01/19/2011 06/23/2015 Esophagitis, unspecified 01/13/2009 018 Gastrointestinal malfunction arising from mental factors 12/09/2008 10/10/2017 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 Dysphagia, unspecified(787.20) 1 07/09/2017 documented as of this encounter (statuses as of 10/18/2021) [facility] Narrative* Problem Noted Date Resolved Date Thoracic aorta atherosclerosis 03/23/2020 0 09/23/2020 Chronic systolic heart failure 11/21/2019 0 09/23/2020 Fatigue 11/24/2016 10/10/2017 Atrial fibrillation 01/14/2014 10/10/2017 Multiple thyroid nodules 03/03/2011 021 Hypertension 01/19/2011 06/23/2015 Esophagitis, unspecified 01/13/2009 018 Gastrointestinal malfunction arising from mental factors 12/09/2008 10/10/2017 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 Dysphagia, unspecified(787.20) 1 07/09/2017 documented as of this encounter (statuses as of 10/25/2021) [facility] Narrative* Problem Noted Date Resolved Date Thoracic aorta atherosclerosis 03/23/2020 0 09/23/2020 Chronic systolic heart failure 11/21/2019 0 09/23/2020 Fatigue 11/24/2016 10/10/2017 Atrial fibrillation 01/14/2014 10/10/2017 Multiple thyroid nodules 03/03/2011 021 Hypertension 01/19/2011 06/23/2015 Esophagitis, unspecified 01/13/2009 018 Gastrointestinal malfunction arising from mental factors 12/09/2008 10/10/2017 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 Dysphagia, unspecified(787.20) 1 07/09/2017 documented as of this encounter (statuses as of 11/02/2021) [facility] Narrative* Problem Noted Date Resolved Date Thoracic aorta atherosclerosis 03/23/2020 0 09/23/2020 Chronic systolic heart failure 11/21/2019 0 09/23/2020 Fatigue 11/24/2016 10/10/2017 Atrial fibrillation 01/14/2014 10/10/2017 Multiple thyroid nodules 03/03/2011 021 Hypertension 01/19/2011 06/23/2015 Esophagitis, unspecified 01/13/2009 018 Gastrointestinal malfunction arising from mental factors 12/09/2008 10/10/2017 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 Dysphagia, unspecified(787.20) 1 07/09/2017 documented as of this encounter (statuses as of 11/04/2021) [facility] Narrative* Problem Noted Date Resolved Date Thoracic aorta atherosclerosis 03/23/2020 0 09/23/2020 Chronic systolic heart failure 11/21/2019 0 09/23/2020 Fatigue 11/24/2016 10/10/2017 Atrial fibrillation 01/14/2014 10/10/2017 Multiple thyroid nodules 03/03/2011 021 Hypertension 01/19/2011 06/23/2015 Esophagitis, unspecified 01/13/2009 018 Gastrointestinal malfunction arising from mental factors 12/09/2008 10/10/2017 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 Dysphagia, unspecified(787.20) 1 07/09/2017 documented as of this encounter (statuses as of 11/08/2021) [facility] Narrative* Problem Noted Date Resolved Date Thoracic aorta atherosclerosis 03/23/2020 0 09/23/2020 Chronic systolic heart failure 11/21/2019 0 09/23/2020 Fatigue 11/24/2016 10/10/2017 Atrial fibrillation 01/14/2014 10/10/2017 Multiple thyroid nodules 03/03/2011 021 Hypertension 01/19/2011 06/23/2015 Esophagitis, unspecified 01/13/2009 018 Gastrointestinal malfunction arising from mental factors 12/09/2008 10/10/2017 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 Dysphagia, unspecified(787.20) 1 07/09/2017 documented as of this encounter (statuses as of 11/09/2021) [facility] Narrative* Problem Noted Date Resolved Date Thoracic aorta atherosclerosis 03/23/2020 0 09/23/2020 Chronic systolic heart failure 11/21/2019 0 09/23/2020 Fatigue 11/24/2016 10/10/2017 Atrial fibrillation 01/14/2014 10/10/2017 Multiple thyroid nodules 03/03/2011 021 Hypertension 01/19/2011 06/23/2015 Esophagitis, unspecified 01/13/2009 018 Gastrointestinal malfunction arising from mental factors 12/09/2008 10/10/2017 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 Dysphagia, unspecified(787.20) 1 07/09/2017 documented as of this encounter (statuses as of 11/18/2021) [facility]10-19-2020 History of Past illness Narrative* Problem Noted Date Resolved Date Thoracic aorta atherosclerosis 03/23/2020 0 09/23/2020 Chronic systolic heart failure 11/21/2019 0 09/23/2020 Fatigue 11/24/2016 10/10/2017 Atrial fibrillation 01/14/2014 10/10/2017 Multiple thyroid nodules 03/03/2011 021 Hypertension 01/19/2011 06/23/2015 Esophagitis, unspecified 01/13/2009 018 Gastrointestinal malfunction arising from mental factors 12/09/2008 10/10/2017 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 Dysphagia, unspecified(787.20) 1 07/09/2017 documented as of this encounter (statuses as of 12/16/2021) [facility]2020 History of Past illness Narrative* Problem Noted Date Resolved Date Thoracic aorta atherosclerosis 03/23/2020 0 09/23/2020 Chronic systolic heart failure 11/21/2019 0 09/23/2020 Fatigue 11/24/2016 10/10/2017 Atrial fibrillation 01/14/2014 10/10/2017 Multiple thyroid nodules 03/03/20112 021 Hypertension 01/19/2011 06/23/2015 Esophagitis, unspecified 01/13/2009 018 Gastrointestinal malfunction arising from mental factors 12/09/2008 10/10/2017 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 Dysphagia, unspecified(787.20) 1 07/09/2017 documented as of this encounter (statuses as of 12/20/2021) [facility]2020 History of Past illness Narrative* Problem Noted Date Resolved Date Thoracic aorta atherosclerosis 03/23/2020 0 09/23/2020 Chronic systolic heart failure 11/21/2019 0 09/23/2020 Fatigue 11/24/2016 10/10/2017 Atrial fibrillation 01/14/2014 10/10/2017 Multiple thyroid nodules 03/03/2011 021 Hypertension 01/19/2011 06/23/2015 Esophagitis, unspecified 01/13/2009 018 Gastrointestinal malfunction arising from mental factors 12/09/2008 10/10/2017 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 Dysphagia, unspecified(787.20) 1 07/09/2017 documented as of this encounter (statuses as of 12/20/2021) [facility] History of Past illness Narrative* Problem Noted Date Resolved Date Thoracic aorta atherosclerosis 03/23/2020 0 09/23/2020 Chronic systolic heart failure 11/21/2019 0 09/23/2020 Fatigue 11/24/2016 10/10/2017 Atrial fibrillation 01/14/2014 10/10/2017 Multiple thyroid nodules 03/03/2011 021 Hypertension 01/19/2011 06/23/2015 Esophagitis, unspecified 01/13/2009 018 Gastrointestinal malfunction arising from mental factors 12/09/2008 10/10/2017 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 Dysphagia, unspecified(787.20) 1 07/09/2017 documented as of this encounter (statuses as of 01/05/2022) [facility] History of Past illness Narrative* Problem Noted Date Resolved Date Thoracic aorta atherosclerosis 03/23/2020 0 09/23/2020 Chronic systolic heart failure 11/21/2019 0 09/23/2020 Fatigue 11/24/2016 10/10/2017 Atrial fibrillation 01/14/2014 10/10/2017 Multiple thyroid nodules 03/03/2011 021 Hypertension 01/19/2011 06/23/2015 Esophagitis, unspecified 01/13/2009 018 Gastrointestinal malfunction arising from mental factors 12/09/2008 10/10/2017 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 Dysphagia, unspecified(787.20) 1 07/09/2017 documented as of this encounter (statuses as of 01/14/2022) [facility]2020 History of Past illness Narrative* Problem Noted Date Resolved Date Thoracic aorta atherosclerosis 03/23/2020 0 09/23/2020 Chronic systolic heart failure 11/21/2019 0 09/23/2020 Fatigue 11/24/2016 10/10/2017 Atrial fibrillation 01/14/2014 10/10/2017 Multiple thyroid nodules 03/03/2011 021 Hypertension 01/19/2011 06/23/2015 Esophagitis, unspecified 01/13/2009 018 Gastrointestinal malfunction arising from mental factors 12/09/2008 10/10/2017 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 Dysphagia, unspecified(787.20) 1 07/09/2017 documented as of this encounter (statuses as of 01/14/2022) [facility]2020 History of Past illness Narrative* Problem Noted Date Resolved Date Thoracic aorta atherosclerosis 03/23/2020 0 09/23/2020 Chronic systolic heart failure 11/21/2019 0 09/23/2020 Fatigue 11/24/2016 10/10/2017 Atrial fibrillation 01/14/2014 10/10/2017 Multiple thyroid nodules 03/03/2011 021 Hypertension 01/19/2011 06/23/2015 Esophagitis, unspecified 01/13/2009 018 Gastrointestinal malfunction arising from mental factors 12/09/2008 10/10/2017 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 Dysphagia, unspecified(787.20) 1 07/09/2017 documented as of this encounter (statuses as of 02/03/2022) [facility]2020 History of Past illness Narrative* Problem Noted Date Resolved Date Thoracic aorta atherosclerosis 03/23/2020 0 09/23/2020 Chronic systolic heart failure 11/21/2019 0 09/23/2020 Fatigue 11/24/2016 10/10/2017 Atrial fibrillation 01/14/2014 10/10/2017 Multiple thyroid nodules 03/03/20112 021 Hypertension 01/19/2011 06/23/2015 Esophagitis, unspecified 01/13/2009 018 Gastrointestinal malfunction arising from mental factors 12/09/2008 10/10/2017 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 Dysphagia, unspecified(787.20) 1 07/09/2017 documented as of this encounter (statuses as of 02/08/2022) [facility]2020 History of Past illness Narrative* Problem Noted Date Resolved Date Thoracic aorta atherosclerosis 03/23/2020 0 09/23/2020 Chronic systolic heart failure 11/21/2019 0 09/23/2020 Fatigue 11/24/2016 10/10/2017 Atrial fibrillation 01/14/2014 10/10/2017 Multiple thyroid nodules 03/03/2011 021 Hypertension 01/19/2011 06/23/2015 Esophagitis, unspecified 01/13/2009 018 Gastrointestinal malfunction arising from mental factors 12/09/2008 10/10/2017 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 Dysphagia, unspecified(787.20) 1 07/09/2017 documented as of this encounter (statuses as of 02/09/2022) [facility]2020 History of Past illness Narrative* Problem Noted Date Resolved Date Thoracic aorta atherosclerosis 03/23/2020 0 09/23/2020 Chronic systolic heart failure 11/21/2019 0 09/23/2020 Fatigue 11/24/2016 10/10/2017 Atrial fibrillation 01/14/2014 10/10/2017 Multiple thyroid nodules 03/03/2011 021 Hypertension 01/19/2011 06/23/2015 Esophagitis, unspecified 01/13/2009 018 Gastrointestinal malfunction arising from mental factors 12/09/2008 10/10/2017 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 Dysphagia, unspecified(787.20) 1 07/09/2017 documented as of this encounter (statuses as of 02/09/2022) [facility]2020 History of Past illness Narrative* Problem Noted Date Resolved Date Thoracic aorta atherosclerosis 03/23/2020 0 09/23/2020 Chronic systolic heart failure 11/21/2019 0 09/23/2020 Fatigue 11/24/2016 10/10/2017 Atrial fibrillation 01/14/2014 10/10/2017 Multiple thyroid nodules 03/03/2011 021 Hypertension 01/19/2011 06/23/2015 Esophagitis, unspecified 01/13/2009 018 Gastrointestinal malfunction arising from mental factors 12/09/2008 10/10/2017 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 Dysphagia, unspecified(787.20) 1 07/09/2017 documented as of this encounter (statuses as of 02/10/2022) [facility]2020 History of Past illness Narrative* Problem Noted Date Resolved Date Thoracic aorta atherosclerosis 03/23/2020 0 09/23/2020 Chronic systolic heart failure 11/21/2019 0 09/23/2020 Fatigue 11/24/2016 10/10/2017 Atrial fibrillation 01/14/2014 10/10/2017 Multiple thyroid nodules 03/03/2011 021 Hypertension 01/19/2011 06/23/2015 Esophagitis, unspecified 01/13/2009 018 Gastrointestinal malfunction arising from mental factors 12/09/2008 10/10/2017 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 Dysphagia, unspecified(787.20) 1 07/09/2017 documented as of this encounter (statuses as of 02/10/2022) [facility]2020 History of Past illness Narrative* Problem Noted Date Resolved Date Thoracic aorta atherosclerosis 03/23/2020 0 09/23/2020 Chronic systolic heart failure 11/21/2019 0 09/23/2020 Fatigue 11/24/2016 10/10/2017 Atrial fibrillation 01/14/2014 10/10/2017 Multiple thyroid nodules 03/03/2011 021 Hypertension 01/19/2011 06/23/2015 Esophagitis, unspecified 01/13/2009 018 Gastrointestinal malfunction arising from mental factors 12/09/2008 10/10/2017 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 Dysphagia, unspecified(787.20) 1 07/09/2017 documented as of this encounter (statuses as of 02/12/2022) [facility]2020 History of Past illness Narrative* Problem Noted Date Resolved Date Thoracic aorta atherosclerosis 03/23/2020 0 09/23/2020 Chronic systolic heart failure 11/21/2019 0 09/23/2020 Fatigue 11/24/2016 10/10/2017 Atrial fibrillation 01/14/2014 10/10/2017 Multiple thyroid nodules 03/03/2011 021 Hypertension 01/19/2011 06/23/2015 Esophagitis, unspecified 01/13/2009 018 Gastrointestinal malfunction arising from mental factors 12/09/2008 10/10/2017 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 Dysphagia, unspecified(787.20) 1 07/09/2017 documented as of this encounter (statuses as of 02/14/2022) [facility]2020 History of Past illness Narrative* Problem Noted Date Resolved Date Thoracic aorta atherosclerosis 03/23/2020 0 09/23/2020 Chronic systolic heart failure 11/21/2019 0 09/23/2020 Fatigue 11/24/2016 10/10/2017 Atrial fibrillation 01/14/2014 10/10/2017 Multiple thyroid nodules 03/03/2011 021 Hypertension 01/19/2011 06/23/2015 Esophagitis, unspecified 01/13/2009 018 Gastrointestinal malfunction arising from mental factors 12/09/2008 10/10/2017 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 Dysphagia, unspecified(787.20) 1 07/09/2017 documented as of this encounter (statuses as of 02/15/2022) [facility]2020 History of Past illness Narrative* Problem Noted Date Resolved Date Thoracic aorta atherosclerosis 03/23/2020 0 09/23/2020 Chronic systolic heart failure 11/21/2019 0 09/23/2020 Fatigue 11/24/2016 10/10/2017 Atrial fibrillation 01/14/2014 10/10/2017 Multiple thyroid nodules 03/03/2011 021 Hypertension 01/19/2011 06/23/2015 Esophagitis, unspecified 01/13/2009 018 Gastrointestinal malfunction arising from mental factors 12/09/2008 10/10/2017 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 Dysphagia, unspecified(787.20) 1 07/09/2017 documented as of this encounter (statuses as of 02/15/2022) [facility]2020 History of Past illness Narrative* Problem Noted Date Resolved Date Thoracic aorta atherosclerosis 03/23/2020 0 09/23/2020 Chronic systolic heart failure 11/21/2019 0 09/23/2020 Fatigue 11/24/2016 10/10/2017 Atrial fibrillation 01/14/2014 10/10/2017 Multiple thyroid nodules 03/03/2011 021 Hypertension 01/19/2011 06/23/2015 Esophagitis, unspecified 01/13/2009 018 Gastrointestinal malfunction arising from mental factors 12/09/2008 10/10/2017 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 Dysphagia, unspecified(787.20) 1 07/09/2017 documented as of this encounter (statuses as of 02/16/2022) [facility]2020 History of Past illness Narrative* Problem Noted Date Resolved Date Thoracic aorta atherosclerosis 03/23/2020 0 09/23/2020 Chronic systolic heart failure 11/21/2019 0 09/23/2020 Fatigue 11/24/2016 10/10/2017 Atrial fibrillation 01/14/2014 10/10/2017 Multiple thyroid nodules 03/03/2011 021 Hypertension 01/19/2011 06/23/2015 Esophagitis, unspecified 01/13/2009 018 Gastrointestinal malfunction arising from mental factors 12/09/2008 10/10/2017 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 Dysphagia, unspecified(787.20) 1 07/09/2017 documented as of this encounter (statuses as of 02/17/2022) [facility]2020 History of Past illness Narrative* Problem Noted Date Resolved Date Thoracic aorta atherosclerosis 03/23/2020 0 09/23/2020 Chronic systolic heart failure 11/21/2019 0 09/23/2020 Fatigue 11/24/2016 10/10/2017 Atrial fibrillation 01/14/2014 10/10/2017 Multiple thyroid nodules 03/03/20112 021 Hypertension 01/19/2011 06/23/2015 Esophagitis, unspecified 01/13/2009 018 Gastrointestinal malfunction arising from mental factors 12/09/2008 10/10/2017 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 Dysphagia, unspecified(787.20) 1 07/09/2017 documented as of this encounter (statuses as of 02/18/2022) [facility]2020 History of Past illness Narrative* Problem Noted Date Resolved Date Thoracic aorta atherosclerosis 03/23/2020 0 09/23/2020 Chronic systolic heart failure 11/21/2019 0 09/23/2020 Fatigue 11/24/2016 10/10/2017 Atrial fibrillation 01/14/2014 10/10/2017 Multiple thyroid nodules 03/03/2011 021 Hypertension 01/19/2011 06/23/2015 Esophagitis, unspecified 01/13/2009 018 Gastrointestinal malfunction arising from mental factors 12/09/2008 10/10/2017 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 Dysphagia, unspecified(787.20) 1 07/09/2017 documented as of this encounter (statuses as of 02/21/2022) [facility]2020 History of Past illness Narrative* Problem Noted Date Resolved Date Thoracic aorta atherosclerosis 03/23/2020 0 09/23/2020 Chronic systolic heart failure 11/21/2019 0 09/23/2020 Fatigue 11/24/2016 10/10/2017 Atrial fibrillation 01/14/2014 10/10/2017 Multiple thyroid nodules 03/03/2011 021 Hypertension 01/19/2011 06/23/2015 Esophagitis, unspecified 01/13/2009 018 Gastrointestinal malfunction arising from mental factors 12/09/2008 10/10/2017 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 Dysphagia, unspecified(787.20) 1 07/09/2017 documented as of this encounter (statuses as of 02/22/2022) [facility]2020 History of Past illness Narrative* Problem Noted Date Resolved Date Thoracic aorta atherosclerosis 03/23/2020 0 09/23/2020 Chronic systolic heart failure 11/21/2019 0 09/23/2020 Fatigue 11/24/2016 10/10/2017 Atrial fibrillation 01/14/2014 10/10/2017 Multiple thyroid nodules 03/03/2011 021 Hypertension 01/19/2011 06/23/2015 Esophagitis, unspecified 01/13/2009 018 Gastrointestinal malfunction arising from mental factors 12/09/2008 10/10/2017 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 Dysphagia, unspecified(787.20) 1 07/09/2017 documented as of this encounter (statuses as of 02/22/2022) [facility]2020 History of Past illness Narrative* Problem Noted Date Resolved Date Thoracic aorta atherosclerosis 03/23/2020 0 09/23/2020 Chronic systolic heart failure 11/21/2019 0 09/23/2020 Fatigue 11/24/2016 10/10/2017 Atrial fibrillation 01/14/2014 10/10/2017 Multiple thyroid nodules 03/03/2011 021 Hypertension 01/19/2011 06/23/2015 Esophagitis, unspecified 01/13/2009 018 Gastrointestinal malfunction arising from mental factors 12/09/2008 10/10/2017 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 Dysphagia, unspecified(787.20) 1 07/09/2017 documented as of this encounter (statuses as of 02/25/2022) [facility]2020 History of Past illness Narrative* Problem Noted Date Resolved Date Thoracic aorta atherosclerosis 03/23/2020 0 09/23/2020 Chronic systolic heart failure 11/21/2019 0 09/23/2020 Fatigue 11/24/2016 10/10/2017 Atrial fibrillation 01/14/2014 10/10/2017 Multiple thyroid nodules 03/03/2011 021 Hypertension 01/19/2011 06/23/2015 Esophagitis, unspecified 01/13/2009 018 Gastrointestinal malfunction arising from mental factors 12/09/2008 10/10/2017 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 Dysphagia, unspecified(787.20) 1 07/09/2017 documented as of this encounter (statuses as of 02/25/2022) [facility] History of Past illness Narrative* Problem Noted Date Resolved Date Thoracic aorta atherosclerosis 03/23/2020 0 09/23/2020 Chronic systolic heart failure 11/21/2019 0 09/23/2020 Fatigue 11/24/2016 10/10/2017 Atrial fibrillation 01/14/2014 10/10/2017 Multiple thyroid nodules 03/03/2011 021 Hypertension 01/19/2011 06/23/2015 Esophagitis, unspecified 01/13/2009 018 Gastrointestinal malfunction arising from mental factors 12/09/2008 10/10/2017 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 Dysphagia, unspecified(787.20) 1 07/09/2017 documented as of this encounter (statuses as of 03/03/2022) [facility] History of Past illness Narrative* Problem Noted Date Resolved Date Thoracic aorta atherosclerosis 03/23/2020 0 09/23/2020 Chronic systolic heart failure 11/21/2019 0 09/23/2020 Fatigue 11/24/2016 10/10/2017 Atrial fibrillation 01/14/2014 10/10/2017 Multiple thyroid nodules 03/03/2011 021 Hypertension 01/19/2011 06/23/2015 Esophagitis, unspecified 01/13/2009 018 Gastrointestinal malfunction arising from mental factors 12/09/2008 10/10/2017 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 Dysphagia, unspecified(787.20) 1 07/09/2017 documented as of this encounter (statuses as of 03/03/2022) [facility] History of Past illness Narrative* Problem Noted Date Resolved Date Thoracic aorta atherosclerosis 03/23/2020 0 09/23/2020 Chronic systolic heart failure 11/21/2019 0 09/23/2020 Fatigue 11/24/2016 10/10/2017 Atrial fibrillation 01/14/2014 10/10/2017 Multiple thyroid nodules 03/03/2011 021 Hypertension 01/19/2011 06/23/2015 Esophagitis, unspecified 01/13/2009 018 Gastrointestinal malfunction arising from mental factors 12/09/2008 10/10/2017 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 Dysphagia, unspecified(787.20) 1 07/09/2017 documented as of this encounter (statuses as of 03/08/2022) [facility] History of Past illness Narrative* Problem Noted Date Resolved Date Thoracic aorta atherosclerosis 03/23/2020 0 09/23/2020 Chronic systolic heart failure 11/21/2019 0 09/23/2020 Fatigue 11/24/2016 10/10/2017 Atrial fibrillation 01/14/2014 10/10/2017 Multiple thyroid nodules 03/03/2011 021 Hypertension 01/19/2011 06/23/2015 Esophagitis, unspecified 01/13/2009 018 Gastrointestinal malfunction arising from mental factors 12/09/2008 10/10/2017 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 Dysphagia, unspecified(787.20) 1 07/09/2017 documented as of this encounter (statuses as of 03/08/2022) [facility] History of Past illness Narrative* Problem Noted Date Resolved Date Thoracic aorta atherosclerosis 03/23/2020 0 09/23/2020 Chronic systolic heart failure 11/21/2019 0 09/23/2020 Fatigue 11/24/2016 10/10/2017 Atrial fibrillation 01/14/2014 10/10/2017 Multiple thyroid nodules 03/03/2011 021 Hypertension 01/19/2011 06/23/2015 Esophagitis, unspecified 01/13/2009 018 Gastrointestinal malfunction arising from mental factors 12/09/2008 10/10/2017 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 Dysphagia, unspecified(787.20) 1 07/09/2017 documented as of this encounter (statuses as of 03/08/2022) [facility] History of Past illness Narrative* Problem Noted Date Resolved Date Thoracic aorta atherosclerosis 03/23/2020 0 09/23/2020 Chronic systolic heart failure 11/21/2019 0 09/23/2020 Fatigue 11/24/2016 10/10/2017 Atrial fibrillation 01/14/2014 10/10/2017 Multiple thyroid nodules 03/03/2011 021 Hypertension 01/19/2011 06/23/2015 Esophagitis, unspecified 01/13/2009 018 Gastrointestinal malfunction arising from mental factors 12/09/2008 10/10/2017 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 Dysphagia, unspecified(787.20) 1 07/09/2017 documented as of this encounter (statuses as of 03/15/2022) [facility] History of Past illness Narrative* Problem Noted Date Resolved Date Thoracic aorta atherosclerosis 03/23/2020 0 09/23/2020 Chronic systolic heart failure 11/21/2019 0 09/23/2020 Fatigue 11/24/2016 10/10/2017 Atrial fibrillation 01/14/2014 10/10/2017 Multiple thyroid nodules 03/03/2011 021 Hypertension 01/19/2011 06/23/2015 Esophagitis, unspecified 01/13/2009 018 Gastrointestinal malfunction arising from mental factors 12/09/2008 10/10/2017 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 Dysphagia, unspecified(787.20) 1 07/09/2017 documented as of this encounter (statuses as of 03/16/2022) [facility] History of Past illness Narrative* Problem Noted Date Resolved Date Thoracic aorta atherosclerosis 03/23/2020 0 09/23/2020 Chronic systolic heart failure 11/21/2019 0 09/23/2020 Fatigue 11/24/2016 10/10/2017 Atrial fibrillation 01/14/2014 10/10/2017 Multiple thyroid nodules 03/03/2011 021 Hypertension 01/19/2011 06/23/2015 Esophagitis, unspecified 01/13/2009 018 Gastrointestinal malfunction arising from mental factors 12/09/2008 10/10/2017 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 Dysphagia, unspecified(787.20) 1 07/09/2017 documented as of this encounter (statuses as of 03/22/2022) [facility] History of Past illness Narrative* Problem Noted Date Resolved Date Thoracic aorta atherosclerosis 03/23/2020 0 09/23/2020 Chronic systolic heart failure 11/21/2019 0 09/23/2020 Fatigue 11/24/2016 10/10/2017 Atrial fibrillation 01/14/2014 10/10/2017 Multiple thyroid nodules 03/03/20112 021 Hypertension 01/19/2011 06/23/2015 Esophagitis, unspecified 01/13/2009 018 Gastrointestinal malfunction arising from mental factors 12/09/2008 10/10/2017 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 Dysphagia, unspecified(787.20) 1 07/09/2017 documented as of this encounter (statuses as of 03/24/2022) [facility] History of Past illness Narrative* Problem Noted Date Resolved Date Thoracic aorta atherosclerosis 03/23/2020 0 09/23/2020 Chronic systolic heart failure 11/21/2019 0 09/23/2020 Fatigue 11/24/2016 10/10/2017 Atrial fibrillation 01/14/2014 10/10/2017 Multiple thyroid nodules 03/03/2011 021 Hypertension 01/19/2011 06/23/2015 Esophagitis, unspecified 01/13/2009 018 Gastrointestinal malfunction arising from mental factors 12/09/2008 10/10/2017 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 Dysphagia, unspecified(787.20) 1 07/09/2017 documented as of this encounter (statuses as of 03/29/2022) [facility] History of Past illness Narrative* Problem Noted Date Resolved Date Thoracic aorta atherosclerosis 03/23/2020 0 09/23/2020 Chronic systolic heart failure 11/21/2019 0 09/23/2020 Fatigue 11/24/2016 10/10/2017 Atrial fibrillation 01/14/2014 10/10/2017 Multiple thyroid nodules 03/03/2011 021 Hypertension 01/19/2011 06/23/2015 Esophagitis, unspecified 01/13/2009 018 Gastrointestinal malfunction arising from mental factors 12/09/2008 10/10/2017 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 Dysphagia, unspecified(787.20) 1 07/09/2017 documented as of this encounter (statuses as of 04/05/2022) [facility] [place] [facility] Diagnosis Pleural effusion- Primary Unspecified pleural effusion [facility] [place] [facility] Diagnosis Paroxysmal atrial fibrillation (HCC) [facility]rial [facility] [place] [facility] Diagnosis Paroxysmal atrial fibrillation (HCC) Atrial fibrillation [facility] [place] [facility] Diagnosis Paroxysmal atrial fibrillation (HCC)- Primary Atrial fibrillation documented in this encounter [facility] note* Diagnosis Paroxysmal atrial fibrillation (HCC) Atrial fibrillation documented in this encounter [facility] note* Diagnosis Thyroid nodule- Primary Nontoxic uninodular goiter History of colonic polyps Personal history of colonic polyps Paroxysmal atrial fibrillation (HCC) Atrial fibrillation Hypertension, essential Unspecified essential hypertension Pulmonary hypertension (HCC) Other chronic pulmonary heart diseases Hyperlipidemia, unspecified hyperlipidemia type Pleural effusion, right Unspecified pleural effusion Prediabetes Other abnormal glucose Medication monitoring encounter Encounter for therapeutic drug monitoring documented in this encounter [facility] note* Diagnosis Renal insufficiency- Primary Unspecified disorder of kidney and ureter Prediabetes Other abnormal glucose documented in this encounter [facility] note* Diagnosis Paroxysmal atrial fibrillation (HCC) Atrial fibrillation documented in this encounter [facility] note* Diagnosis Paroxysmal atrial fibrillation (HCC) Atrial fibrillation documented in this encounter [facility] note* Diagnosis Paroxysmal atrial fibrillation (HCC) Atrial fibrillation documented in this encounter [facility] note* Diagnosis Hypertension, essential- Primary Unspecified essential hypertension Renal insufficiency Unspecified disorder of kidney and ureter Prediabetes Other abnormal glucose Chronic anticoagulation Long-term (current) use of anticoagulants Gastroesophageal reflux disease, unspecified whether esophagitis present Hyperlipidemia, unspecified hyperlipidemia type Paroxysmal atrial fibrillation (HCC) Atrial fibrillation Acute combined systolic and diastolic congestive heart failure (HCC) Acute combined systolic and diastolic heart failure documented in this encounter [facility] note* Diagnosis Paroxysmal atrial fibrillation (HCC) Atrial fibrillation documented in this encounter [facility] note* Diagnosis Pleural effusion- Primary Unspecified pleural effusion documented in this encounter [facility] note* Diagnosis Paroxysmal atrial fibrillation (HCC) Atrial fibrillation documented in this encounter [facility] note* Diagnosis Paroxysmal atrial fibrillation (HCC)- Primary Atrial fibrillation documented in this encounter [facility] note* Diagnosis Atrial fibrillation, chronic (HCC)- Primary Atrial fibrillation documented in this encounter [facility] note* Diagnosis Paroxysmal atrial fibrillation (HCC)- Primary Atrial fibrillation Pleural effusion, right Unspecified pleural effusion Renal insufficiency Unspecified disorder of kidney and ureter Acute heart failure with preserved ejection fraction (HCC) Hypertension, essential Unspecified essential hypertension Chronic anticoagulation Long-term (current) use of anticoagulants pasturella bactermia [facility] Hyperlipidemia, unspecified hyperlipidemia type- Primary Hypertension, essential Unspecified essential hypertension Moderate mitral regurgitation Mitral valve disorders Paroxysmal atrial fibrillation (HCC) Atrial fibrillation Pulmonary hypertension (HCC) Other chronic pulmonary heart diseases Lung nodule Solitary pulmonary nodule Pleural effusion Unspecified pleural effusion Thyroid nodule Nontoxic uninodular goiter Marfan's syndrome Chronic anticoagulation Long-term (current) use of anticoagulants Prediabetes Other abnormal glucose History of polymyalgia rheumatica Personal history of other musculoskeletal disorders GERD without esophagitis Esophageal reflux Renal infarct (HCC) Vascular disorders of kidney [facility] Paroxysmal atrial fibrillation (HCC) Atrial fibrillation [facility] Diagnosis Renal insufficiency- Primary Unspecified disorder of kidney and ureter [facility] Diagnosis Rib pain- Primary Chest pain, unspecified [facility] Diagnosis Multiple thyroid nodules- Primary Nontoxic multinodular goiter [facility]* Diagnosis Upper back pain- Primary [facility]* Diagnosis Paroxysmal atrial fibrillation (HCC) Atrial fibrillation [facility] Diagnosis Paroxysmal atrial fibrillation (HCC)- Primary Atrial fibrillation [facility]* Diagnosis Compression deformity of vertebra- Primary Other acquired deformity of back or spine Centrilobular emphysema (HCC) Other emphysema Pulmonary hypertension (HCC) Other chronic pulmonary heart diseases Paroxysmal atrial fibrillation (HCC) Atrial fibrillation Rheumatoid arthritis, involving unspecified site, unspecified whether rheumatoid factor present (HCC) Chronic respiratory failure with hypoxia (HCC) Chronic respiratory failure [facility] Diagnosis Compression deformity of vertebra- Primary Other acquired deformity of back or spine [facility] Diagnosis Compression deformity of vertebra- Primary Other acquired deformity of back or spine [facility]* Diagnosis Compression deformity of vertebra- Primary Other acquired deformity of back or spine Renal mass Unspecified disorder of kidney and ureter Liver mass Unspecified disorder of liver [facility]* Diagnosis Epigastric pain- Primary Abdominal pain, epigastric Abdominal swelling, generalized Abdominal or pelvic swelling, mass, or lump, generalized Compression deformity of vertebra Other acquired deformity of back or spine [facility]* Diagnosis Elevated alkaline phosphatase level- Primary Other nonspecific abnormal serum enzyme levels [facility] [place] [facility] Diagnosis Compression deformity of vertebra Other acquired deformity of back or spine [facility] [place] [facility] Diagnosis Paroxysmal atrial fibrillation (HCC) Atrial fibrillation [facility] [place] [facility] Diagnosis Elevated alkaline phosphatase level- Primary Other nonspecific abnormal serum enzyme levels [facility] [place] [facility] Diagnosis Paroxysmal atrial fibrillation (HCC) Atrial fibrillation [facility] [place] [facility] Diagnosis Paroxysmal atrial fibrillation (HCC) Atrial fibrillation [facility] [place] [facility] Diagnosis Chronic anticoagulation- Primary Long-term (current) use of anticoagulants Calculus of gallbladder without cholecystitis without obstruction Calculus of gallbladder without mention of cholecystitis or obstruction Prediabetes Other abnormal glucose Marfan's syndrome Rheumatoid arthritis, involving unspecified site, unspecified whether rheumatoid factor present (HCC) Thyroid nodule Nontoxic uninodular goiter Pulmonary emphysema, unspecified emphysema type (HCC) History of pleural effusion Personal history of other diseases of respiratory system History of compression fracture of spine Personal history of traumatic fracture Microcytosis Other abnormality of red blood cells Stage 3 chronic kidney disease, unspecified whether stage 3a or 3b CKD (HCC) Bloating Flatulence, eructation, and gas pain [facility] [place] [facility] Diagnosis Paroxysmal atrial fibrillation (HCC) Atrial fibrillation [facility] [place] [facility] Diagnosis Paroxysmal atrial fibrillation (HCC) Atrial fibrillation [facility] [place] [facility]* Diagnosis GERD without esophagitis Esophageal reflux [facility] [place] [facility] Diagnosis Herpes zoster without complication- Primary Herpes zoster without mention of complication Rash Rash and other nonspecific skin eruption [facility] [place] [facility] Diagnosis Paroxysmal atrial fibrillation (HCC)- Primary Atrial fibrillation [facility] [place] [facility] Diagnosis Paroxysmal atrial fibrillation (HCC)- Primary Atrial fibrillation [facility] [place] [facility] Diagnosis Chronic anticoagulation- Primary Long-term (current) use of anticoagulants Paroxysmal atrial fibrillation (HCC) Atrial fibrillation [facility] [place] [facility] Diagnosis 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 Mata's esophagus [facility] [place] [facility] Diagnosis Paroxysmal atrial fibrillation (HCC)- Primary Atrial fibrillation [facility] [place] [facility] Diagnosis Paroxysmal atrial fibrillation (HCC)- Primary Atrial fibrillation [facility] [place] [facility] Diagnosis Paroxysmal atrial fibrillation (HCC)- Primary Atrial fibrillation [facility] [place] [facility] Diagnosis Atrial fibrillation, chronic (HCC)- Primary [facility]rial [facility] [place] [facility] Diagnosis Paroxysmal atrial fibrillation (HCC)- Primary Atrial fibrillation [facility] [place] [facility]* Diagnosis Renal mass Unspecified disorder of kidney and ureter Liver mass Unspecified disorder of liver [facility] [place] [facility]* Diagnosis Elevated alkaline phosphatase level Other nonspecific abnormal serum enzyme levels [facility] [place] [facility]* Diagnosis Pathological fracture, other site, initial encounter for fracture [facility] [place] [facility]* Diagnosis Thyroid nodule Nontoxic uninodular goiter [facility] [place] [facility]* Diagnosis Coagulopathy (HCC)- Primary Other and unspecified coagulation defects Paroxysmal atrial fibrillation (HCC) Atrial fibrillation [facility] [place] [facility]* Diagnosis Paroxysmal atrial fibrillation (HCC)- Primary Atrial fibrillation [facility] [place] [facility] Diagnosis Paroxysmal atrial fibrillation (HCC)- Primary Atrial fibrillation Hyperlipidemia, unspecified hyperlipidemia type Hypertension, essential Unspecified essential hypertension Pulmonary hypertension (HCC) Other chronic pulmonary heart diseases 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) Pulmonary emphysema, unspecified emphysema type (HCC) 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 Mata's esophagus Gastroesophageal reflux disease, unspecified whether esophagitis present Stage 3 chronic kidney disease, unspecified whether stage 3a or 3b CKD (HCC) Thyroid nodule Nontoxic uninodular goiter Iron deficiency anemia, unspecified iron deficiency anemia type Rheumatoid arthritis, involving unspecified site, unspecified whether rheumatoid factor present (HCC) Prediabetes Other abnormal glucose documented in this encounter [facility] Plan of care note* Visit Details Visit Type -SN SOC Discipline -Senior Care Problems Problem Description Start Date Status Goals Interve ntions Medication Education Disciplines: Skilled Services 02/09/2022 Active 1 goal linked to scheduled/documen jil intervention 1 goal intervention scheduled/document ed in this visit Sepsis Disciplines: Skilled Services 02/09/2022 Active 1 goal linked to scheduled/documen jil intervention 1 goal intervention scheduled/document ed in this visit Physician Specific Parameters Disciplines: Skilled Services 02/09/2022 Active 1 goal linked to scheduled/documen jil intervention 2 goal interventions scheduled/document ed in this visit Risk for Falls Disciplines: Skilled Services 02/09/2022 Active 1 goal linked to scheduled/documen jil intervention 1 goal intervention scheduled/document ed in this visit Pain Disciplines: Skilled Services 02/09/2022 Active 1 goal linked to scheduled/documen jil intervention 1 goal intervention scheduled/document ed in this visit Nutrition/Hydration Disciplines: Skilled Services 02/09/2022 Active 1 goal linked to scheduled/documen jil intervention 1 goal intervention scheduled/document ed in this visit High Risk Medications Disciplines: Skilled Services 02/09/2022 Active 1 goal linked to scheduled/documen jil intervention 1 goal intervention scheduled/document ed in this visit Discharge Disciplines: Skilled Services 02/09/2022 Active 1 goal linked to scheduled/documen jil intervention 1 goal intervention scheduled/document ed in this visit Advance Directives Disciplines: Skilled Services 02/09/2022 Active 1 goal linked to scheduled/documen jil intervention 1 goal intervention scheduled/document ed in this visit SN Respiratory Disease Disciplines: 02/09/2022 Active 1 goal linked to scheduled/documen jil intervention 1 goal intervention scheduled/document ed in this visit SN Edema Disciplines: SN 02/09/2022 Active 1 goal linked to scheduled/documen jil intervention 1 goal intervention scheduled/document ed in this visit SN Integumentary/Wound s Disciplines: 02/09/2022 Active 1 goal linked to scheduled/documen jil intervention 1 goal intervention scheduled/document ed in this visit SN Heart Failure Disciplines: 02/09/2022 Active 1 goal linked to scheduled/documen jil intervention 2 goal interventions scheduled/document ed in this visit SN Cardiovascular Condition Disciplines: SN 02/09/2022 Active 1 goal linked to scheduled/documen jil intervention 1 goal intervention scheduled/document ed in this visit SN Learning Assessment Disciplines: 02/09/2022 Active 1 goal linked to scheduled/documen jil intervention 1 goal intervention scheduled/document ed in this visit SN Genitourinary disease process Disciplines: 02/09/2022 Active 1 goal linked to scheduled/documen jil intervention 1 goal intervention scheduled/document ed in this visit Goals Goal Associated Problem Outcome Goal Met? Visit Notes Patient/caregiver will demonstrate ability to obtain, store, identify and administer ordered medications, keep accurate medication list in home, and adhere to medication schedule Description: Patient/caregiver will demonstrate ability to obtain, store, identify and administer ordered medications, keep accurate medication list in home, and adhere to medication schedule by 04/09/22. Medication Education No Patient/caregiver will be able to identify and report symptoms of sepsis Description: Patient/caregiver will be able to identify signs/symptoms of sepsis infection and will verbalize actions to take if suspected by 04/09/22. Sepsis No Patient to maintain parameters within physician-specified ranges throughout certification period Physician Specific Parameters No Manage Risk for falls Description: Patient/caregiver will verbalize knowledge of individualized fall prevention strategies by 04/09/22. Risk for Falls No Manage Pain Description: Patient/caregiver will verbalize knowledge and understanding of appropriate techniques to control pain, including non-pharmacological techniques. Patient will verbalize or demonstrate an acceptable level of pain as evidenced by a pain score of 2/10 and improvement in ability to perform activities of daily living to be achieved by 04/09/22. Pain No Manage Nutrition/Hydration Description: Patient/caregiver will verbalize/demonstrate knowledge of prescribed diet and/or healthy nutrition to be achieved by 04/09/22. Nutrition/Hydration No Patient/caregiver will teach back high risk medication side effect and precaution education High Risk Medications No Manage discharge planning Description: Patient/caregiver will verbalize understanding of ongoing discharge plan provided related to disease management, arrangements for outpatient and/or community services, obtaining medications, supplies, and DME, as needed throughout certification period. Discharge No Patient/caregiver will make healthcare providers aware of and any changes to Advance Directives throughout certification period Advance Directives No Improved management of respiratory condition Description: Improve respiratory management as evidenced by patient/caregiver's ability to teach back strategies for improving respiratory status by 03/01/22. SN Respiratory Disease No Patient will have improved edema management Description: Patient/caregiver will demonstrate an understanding of edema management strategies as evidenced by resolution or stabilization of edema by 03/01/22. SN Edema No Patient/Caregiver will have improved healing and be free of signs and symptoms of complications Description: Patient/caregiver will verbalize management strategies to promote wound healing & prevent complications as evidenced by improved healing & no complications by 03/01/22. SN Integumentary/Wounds No Improved management of Heart Failure Description: Improve HF management as evidenced by stable weights, reduced edema, and less symptoms reported by patient to be achieved by 03/01/22. SN Heart Failure No Improved management of cardiovascular disease Description: Improve patient/caregiver management of cardiac disease as evidenced by patient/caregiver ability to teach back cardiac management strategies by 03/01/22. SN Cardiovascular Condition No Demonstrate understanding of education Description: Patient and/or caregiver will verbalize understanding of educational instruction provided throughout certification period. SN Learning Assessment No Patient/Caregiver will verbalize understanding and demonstrate improved management of genitourinary disease/condition. Description: Patient/Caregiver will state understanding of genitourinary disease/condition and be able to teach back management strategies by 03/01/22. SN Genitourinary disease process No Interventions Intervention Associated Problem/Goal Status Variance Visit Notes Medication Education Description: Evaluate/instruct patient/caregiver on obtaining, storing, identifying and administering ordered medications as well as keeping accurate medication list in the home and adhereing to medication schedule Problem:Medication Education Goal:Patient/caregiver will demonstrate ability to obtain, store, identify and administer ordered medications, keep accurate medication list in home, and adhere to medication schedule Completed Patient instructed on importance of keeping accurate medication list in home and adhering to medication schedule. Risk of Sepsis Description: Patient is at risk for sepsis. Monitor closely for s/s of sepsis. Problem:Sepsis Goal:Patient/caregiver will be able to identify and report symptoms of sepsis Completed Weight Description: Notify Dr. Bonilla of weight change of 4lbs. Problem:Physician Specific Parameters Goal:Patient to maintain parameters within physician-specified ranges throughout certification period Completed SPO2 Description: Stop activity if pulse ox is <92% at rest. Problem:Physician Specific Parameters Goal:Patient to maintain parameters within physician-specified ranges throughout certification period Completed Instruct on individual fall risk factors and strategies to prevent falls and injuries caused by falls. Problem:Risk for Falls Goal:Manage Risk for falls Completed SN: Patient instructed on Eliminating Environmental Hazards: Keep pathways clear, Keep pets out of pathways, Remove unsafe rugs, Keep rooms and walkways well lit, Wear supportive shoes or non-skid socks and Keep frequently used items within reach Incontinence Management: Use incontinence pads/briefs Managing Impaired Functional Mobility: Use assistive device(s): rollator walker and Caregiver to provide assist with: Ambulation, Steps, Transfers and ADL/IADLs Instruct on pain and instruct on strategies to control pain Problem:Pain Goal:Manage Pain Completed patient instructed on techniques to control pain including Non-Pharmacological measures; rest, positioning/elevatio n and distraction. Define patient s appetite/hydration status and implement strategies to improve compliance with prescribed diet and/or healthy nutrition. Problem:Nutrition/Hydr ation Goal:Manage Nutrition/Hydration Completed instructed patient on implementing strategies to comply with prescribed diet, healthy nutrition and adequate hydration Coumadin/Warfarin-Inst ruct on high risk medication Problem:High Risk Medications Goal:Patient/caregiver will teach back high risk medication side effect and precaution education Completed patient instructed on Warfarin Take your warfarin as instructed and at the same time each day. Have your blood tested as instructed to check how quickly your blood is clotting. Discuss all medications you are taking -- even [id number] medicines -- with your doctor and pharmacist since many drugs can interact with warfarin. Tell anyone providing medical or dental care that you are taking warfarin. Eat about the same amount of foods with vitamin K each week, for example leafy greens, as these foods can affect the way warfarin works. If you forget to take a pill, DO NOT take a double dose. Take the missed dose as soon as possible on the same day. DO NOT take a double dose of warfarin the next day to make up for the missed dose. Watch for signs of abnormal or excessive bleeding and bruising. Call your health care provider right away if you suspect something is wrong. DO NOT STOP your warfarin even for a minor procedure like dental work without first checking with the doctor who monitors your therapy. It is best to avoid alcohol while taking warfarin. Instruct on ongoing discharge plan Problem:Discharge Goal:Manage discharge planning Completed Ongoing Discharge plan: Discharge plan discussed with patient including frequency and duration for home SN and plan for transition to: live independently at home without ongoing services. Determine patient's Advance Directive Status Description: Patient does have advance directives. Patient's Advance Directives determined to be not available in Home Healthcare DPOA. Problem:Advance Directives Goal:Patient/caregiver will make healthcare providers aware of and any changes to Advance Directives throughout certification period Completed Discussed Advance Directives with Patient and/or Caregiver. Referred patient to Home Care handbook for further information on Healthcare DPOA & Living Will. Instruct on respiratory disease process and management of condition Description: Patient has following respiratory diagnosis(es): pleural effusion Problem:SN Respiratory Disease Goal:Improved management of respiratory condition Completed patient assessed and instructed on respiratory disease process, self monitoring & symptom reporting, s/s of respiratory infection and breathing management techniques: pursed lip breathing. Assess and instruct on measures to reduce edema Problem:SN Edema Goal:Patient will have improved edema management Completed patient instructed on elevation, compression, diet and medication compliance. Wound Care: Perform wound care (1) Description: Incision location: Right lateral chestt, Wound care: Order: Cleanse with soap and water, pat dry and apply Gauze;Transparent Film. Frequency: daily and as needed Measure wound/incision weekly and as needed. Problem:SN Integumentary/Wounds Goal:Patient/Caregiver will have improved healing and be free of signs and symptoms of complications Completed Completed by SN. Patient did tolerate well. A. Acute Heart Failure Description: Instruct patient/caregiver on use of zone sheet, daily weights, diet education, fluid management, edema management, medications prescribed related to heart failure, potassium guidelines, keeping track of their condition through logging and use of PRN diuretics as found in the HF binder. Problem:SN Heart Failure Goal:Improved management of Heart Failure Completed patient assessed and instructed on use of zone sheet, daily weights, diet education, fluid management, edema management, medications prescribed related to heart failure and keeping track of your condition through logging daily weights as found in the HF binder. Ensure patient/caregiver has Heart Failure Binder and scale in home Description: SN to provide and refer to HF binder every visit. Ensure patient has scale. Problem:SN Heart Failure Goal:Improved management of Heart Failure Completed Patient provided HF binder. Patient has scale. Instruct on cardiovascular disease process and management of condition Description: Patient has following cardiac diagnosis(es): AFIB and Hypertension. Problem:SN Cardiovascular Condition Goal:Improved management of cardiovascular disease Completed patient instructed on cardiac disease process, self monitoring & symptom reporting and Cardiac Diet. Instruct and educate on knowledge deficits Problem:SN Learning Assessment Goal:Demonstrate understanding of education Completed patient verbalize and/or demonstrate understanding of nursing education completed today. Education methods include: verbal cues. Further education required to improve knowledge and compliance with cardiac disease management, fall prevention/home safety strategies, incision/wound care management, medication management, nutrition and pulmonary disease management. Incontinence- Instruct Patient/Caregiver on measures to manage urinary incontinence Problem:SN Genitourinary disease process Goal:Patient/Caregiver will verbalize understanding and demonstrate improved management of genitourinary disease/condition. Completed patient instructed on measures to manage Urinary incontinence including: use of pads/protective garments and skin care after incontinence episode. [facility] Visit Details Visit Type -PT EVAL Discipline -Physical Therapy Problems Problem Description Start Date Status Goals Interve ntions Medication Education Disciplines: Skilled Services 02/09/2022 Active 1 goal linked to scheduled/docume nted intervention 1 goal intervention scheduled/documen jil in this visit Sepsis Disciplines: Skilled Services 02/09/2022 Active 1 goal linked to scheduled/docume nted intervention 1 goal intervention scheduled/documen ijl in this visit PT Referral Disciplines: Skilled Services 02/09/2022 Resolved on 02/11/2022 1 goal linked to scheduled/docume nted intervention 1 goal intervention scheduled/documen jil in this visit Physician Specific Parameters Disciplines: Skilled Services 02/09/2022 Active 1 goal linked to scheduled/docume nted intervention 2 goal interventions scheduled/documen jil in this visit Risk for Falls Disciplines: Skilled Services 02/09/2022 Active 1 goal linked to scheduled/docume nted intervention 1 goal intervention scheduled/documen jil in this visit PT Learning Assessment Disciplines: PT 02/11/2022 Active 1 goal linked to scheduled/docume nted intervention 1 goal intervention scheduled/documen jil in this visit PT Cardiovascular Disease Disciplines: PT 02/11/2022 Active 1 goal linked to scheduled/docume nted intervention 1 goal intervention scheduled/documen jil in this visit Goals Goal Associated Problem Outcome Goal Met? Visit Notes Patient/caregiver will demonstrate ability to obtain, store, identify and administer ordered medications, keep accurate medication list in home, and adhere to medication schedule Description: Patient/caregiver will demonstrate ability to obtain, store, identify and administer ordered medications, keep accurate medication list in home, and adhere to medication schedule by 04/09/22. Medication Education No Patient/caregiver will be able to identify and report symptoms of sepsis Description: Patient/caregiver will be able to identify signs/symptoms of sepsis infection and will verbalize actions to take if suspected by 04/09/22. Sepsis No Patient will be referred to additional discipline as needed PT Referral Completed Yes Patient to maintain parameters within physician-specified ranges throughout certification period Physician Specific Parameters No Manage Risk for falls Description: Patient/caregiver will verbalize knowledge of individualized fall prevention strategies by 04/09/22. Risk for Falls No Demonstrate understanding of education Description: Patient and/or caregiver will understand educational instruction to be achieved by 03/12/22. . PT Learning Assessment No Manage Primary Cardiovascular Disease Description: Improve patient and/or caregiver understanding of primary cardiovascular disease management as evidenced by patient and/or caregiver able to verbalize, demonstrate, and teach back instruction, to be achieved by 03/12/22 PT Cardiovascular Disease No Interventions Intervention Associated Problem/Goal Status Variance Visit Notes Medication Education Description: Evaluate/instruct patient/caregiver on obtaining, storing, identifying and administering ordered medications as well as keeping accurate medication list in the home and adhereing to medication schedule Problem:Medication Education Goal:Patient/caregive r will demonstrate ability to obtain, store, identify and administer ordered medications, keep accurate medication list in home, and adhere to medication schedule Completed Patient instructed on importance of keeping accurate medication list in home and adhering to medication schedule. Risk of Sepsis Description: Patient is at risk for sepsis. Monitor closely for s/s of sepsis. Problem:Sepsis Goal:Patient/caregive r will be able to identify and report symptoms of sepsis Completed PT evaluation and treatment Description: Evaluate and treat for the assessment of functional deficits and establishment of appropriate interventions and education, including recommendations for functional mobility training, balance training for fall reduction, and strengthening. Problem:PT Referral Goal:Patient will be referred to additional discipline as needed Completed Weight Description: Notify Dr. Bonilla of weight change of 4lbs. Problem:Physician Specific Parameters Goal:Patient to maintain parameters within physician-specified ranges throughout certification period Completed SPO2 Description: Stop activity if pulse ox is <92% at rest. Problem:Physician Specific Parameters Goal:Patient to maintain parameters within physician-specified ranges throughout certification period Completed Instruct on individual fall risk factors and strategies to prevent falls and injuries caused by falls. Problem:Risk for Falls Goal:Manage Risk for falls Completed PT: Patient instructed on Eliminating Environmental Hazards: Keep pathways clear, Keep pets out of pathways, Remove unsafe rugs, Move furniture from pathways and Wear supportive shoes or non-skid socks Instruct and educate on knowledge deficits Problem:PT Learning Assessment Goal:Demonstrate understanding of education Completed patient verbalize and/or demonstrate understanding of physical therapy education including cardiac disease management, pulmonary disease management, fall prevention strategies, home safety and functional activity. Education methods include: verbal cues. Further education required to improve knowledge and compliance with cardiac disease management, pulmonary disease management, fall prevention strategies, home safety, functional activity and home exercise program. Instruct on signs, symptoms, and management of primary cardiovascular disease Problem:PT Cardiovascular Disease Goal:Manage Primary Cardiovascular Disease Completed Instructed patient on instructed on when to call provider. documented in this encounter [facility] Plan of care note* Visit Details Visit Type -ARMATURE WINDER REPAIR ROUTINE Discipline -Physical Therapy Problems Problem Description Start Date Status Goals Interve ntions Medication Education Disciplines: Skilled Services 02/09/2022 Active 1 goal linked to scheduled/documen jil intervention 1 goal intervention scheduled/document ed in this visit Sepsis Disciplines: Skilled Services 02/09/2022 Active 1 goal linked to scheduled/documen jil intervention 1 goal intervention scheduled/document ed in this visit Physician Specific Parameters Disciplines: Skilled Services 02/09/2022 Active 1 goal linked to scheduled/documen jil intervention 2 goal interventions scheduled/document ed in this visit Risk for Falls Disciplines: Skilled Services 02/09/2022 Active 1 goal linked to scheduled/documen jil intervention 1 goal intervention scheduled/document ed in this visit Pain Disciplines: Skilled Services 02/09/2022 Active 1 goal linked to scheduled/documen jil intervention 1 goal intervention scheduled/document ed in this visit Discharge Disciplines: Skilled Services 02/09/2022 Active 1 goal linked to scheduled/documen jil intervention 1 goal intervention scheduled/document ed in this visit PT Impaired muscle performance and/or ROM Disciplines: PT 02/11/2022 Active 1 goal linked to scheduled/documen jil intervention 1 goal intervention scheduled/document ed in this visit PT Impaired gait Disciplines: PT 02/11/2022 Active 1 goal linked to scheduled/documen jil intervention 1 goal intervention scheduled/document ed in this visit PT Cardiovascular Disease Disciplines: PT 02/11/2022 Active 1 goal linked to scheduled/documen jil intervention 1 goal intervention scheduled/document ed in this visit Goals Goal Associated Problem Outcome Goal Met? Visit Notes Patient/caregiver will demonstrate ability to obtain, store, identify and administer ordered medications, keep accurate medication list in home, and adhere to medication schedule Description: Patient/caregiver will demonstrate ability to obtain, store, identify and administer ordered medications, keep accurate medication list in home, and adhere to medication schedule by 04/09/22. Medication Education No Patient/caregiver will be able to identify and report symptoms of sepsis Description: Patient/caregiver will be able to identify signs/symptoms of sepsis infection and will verbalize actions to take if suspected by 04/09/22. Sepsis No Patient to maintain parameters within physician-specified ranges throughout certification period Physician Specific Parameters No Manage Risk for falls Description: Patient/caregiver will verbalize knowledge of individualized fall prevention strategies by 04/09/22. Risk for Falls No Manage Pain Description: Patient/caregiver will verbalize knowledge and understanding of appropriate techniques to control pain, including non-pharmacological techniques. Patient will verbalize or demonstrate an acceptable level of pain as evidenced by a pain score of 2/10 and improvement in ability to perform activities of daily living to be achieved by 04/09/22. Pain No Manage discharge planning Description: Patient/caregiver will verbalize understanding of ongoing discharge plan provided related to disease management, arrangements for outpatient and/or community services, obtaining medications, supplies, and DME, as needed throughout certification period. Discharge No Improved Muscle Performance and/or ROM Description: LTG: Patient will demonstrate improved muscle performance to meet functional goals as evidenced by ability to tolerate 10 min of standing activity, to be achieved by 03/12/22. STG: Patient and/or caregiver will verbalize/demonstrate independence with home exercise program, to improve functional mobility, to be achieved by 03/01/22. PT Impaired muscle performance and/or ROM No Improved Gait Description: LTG: Patient will demonstrate improved gait ability as evidenced by ambulation 200 feet with no device independently, to return to safe household and community ambulation, in order to return to plf, to be achieved by 03/12/22. PT Impaired gait No Manage Primary Cardiovascular Disease Description: Improve patient and/or caregiver understanding of primary cardiovascular disease management as evidenced by patient and/or caregiver able to verbalize, demonstrate, and teach back instruction, to be achieved by 03/12/22 PT Cardiovascular Disease No Interventions Intervention Associated Problem/Goal Status Variance Visit Notes Medication Education Description: Evaluate/instruct patient/caregiver on obtaining, storing, identifying and administering ordered medications as well as keeping accurate medication list in the home and adhereing to medication schedule Problem:Medication Education Goal:Patient/caregiver will demonstrate ability to obtain, store, identify and administer ordered medications, keep accurate medication list in home, and adhere to medication schedule Completed Patient instructed on importance of keeping accurate medication list in home. Risk of Sepsis Description: Patient is at risk for sepsis. Monitor closely for s/s of sepsis. Problem:Sepsis Goal:Patient/caregiver will be able to identify and report symptoms of sepsis Completed Weight Description: Notify Dr. Bonilla of weight change of 4lbs. Problem:Physician Specific Parameters Goal:Patient to maintain parameters within physician-specified ranges throughout certification period Completed SPO2 Description: Stop activity if pulse ox is <92% at rest. Problem:Physician Specific Parameters Goal:Patient to maintain parameters within physician-specified ranges throughout certification period Completed Instruct on individual fall risk factors and strategies to prevent falls and injuries caused by falls. Problem:Risk for Falls Goal:Manage Risk for falls Completed PT: Patient instructed on Eliminating Environmental Hazards: Keep pathways clear and Keep rooms and walkways well lit Managing Impaired Functional Mobility: Use assistive device(s): front wheeled walker for outdoor/longer distances Instruct on pain and instruct on strategies to control pain Problem:Pain Goal:Manage Pain Completed patient denies pain today Instruct on ongoing discharge plan Problem:Discharge Goal:Manage discharge planning Completed Ongoing Discharge plan: Discharge plan discussed with patient including frequency and duration for home PT and plan for transition to: live independently at home without ongoing services. Physical Therapy Therapeutic Exercises Problem:PT Impaired muscle performance and/or ROM Goal:Improved Muscle Performance and/or ROM Completed patient instructed on strengthening exercises including seated: heel toe raises, hip flexion and laq x's 10 each with verbal, visual and written cues for correct technique and pace. patient instructed to perform home exercise program twice a day which included above exercises. Physical Therapy Gait Training Problem:PT Impaired gait Goal:Improved Gait Completed Gait training and instruction to patient on safe ambulation with no device for household distances with supervision, with verbal cues for corrections of gait deviations including pacing for safefy and energy conservation. Instruct on signs, symptoms, and management of primary cardiovascular disease Problem:PT Cardiovascular Disease Goal:Manage Primary Cardiovascular Disease Completed Instructed patient on instructed on when to call provider. [facility] Visit Details Visit Type -SN ROUTINE Discipline -Senior Care Problems Problem Description Start Date Status Goals Interve ntions Medication Education Disciplines: Skilled Services 02/09/2022 Active 1 goal linked to scheduled/docume nted intervention 1 goal intervention scheduled/documen jil in this visit Sepsis Disciplines: Skilled Services 02/09/2022 Active 1 goal linked to scheduled/docume nted intervention 1 goal intervention scheduled/documen jil in this visit Physician Specific Parameters Disciplines: Skilled Services 02/09/2022 Active 1 goal linked to scheduled/docume nted intervention 2 goal interventions scheduled/documen jil in this visit Risk for Falls Disciplines: Skilled Services 02/09/2022 Active 1 goal linked to scheduled/docume nted intervention 1 goal intervention scheduled/documen jil in this visit Pain Disciplines: Skilled Services 02/09/2022 Resolved on 02/15/2022 1 goal linked to scheduled/docume nted intervention Nutrition/Hydration Disciplines: Skilled Services 02/09/2022 Active 1 goal linked to scheduled/docume nted intervention 1 goal intervention scheduled/documen jil in this visit High Risk Medications Disciplines: Skilled Services 02/09/2022 Active 1 goal linked to scheduled/docume nted intervention 1 goal intervention scheduled/documen jil in this visit SN Respiratory Disease Disciplines: SN 02/09/2022 Active 1 goal linked to scheduled/docume nted intervention 1 goal intervention scheduled/documen jil in this visit SN Edema Disciplines: SN 02/09/2022 Resolved on 02/15/2022 1 goal linked to scheduled/docume nted intervention SN Integumentary/Wound s Disciplines: SN 02/09/2022 Resolved on 02/15/2022 1 goal linked to scheduled/docume nted intervention SN Heart Failure Disciplines: SN 02/09/2022 Active 1 goal linked to scheduled/docume nted intervention 1 goal intervention scheduled/documen jil in this visit SN Cardiovascular Condition Disciplines: SN 02/09/2022 Active 1 goal linked to scheduled/docume nted intervention 1 goal intervention scheduled/documen jil in this visit SN Learning Assessment Disciplines: 02/09/2022 Active 1 goal linked to scheduled/docume nted intervention 1 goal intervention scheduled/documen jil in this visit SN Genitourinary disease process Disciplines: 02/09/2022 Active 1 goal linked to scheduled/docume nted intervention 1 goal intervention scheduled/documen jil in this visit Goals Goal Associated Problem Outcome Goal Met? Visit Notes Patient/caregiver will demonstrate ability to obtain, store, identify and administer ordered medications, keep accurate medication list in home, and adhere to medication schedule Description: Patient/caregiver will demonstrate ability to obtain, store, identify and administer ordered medications, keep accurate medication list in home, and adhere to medication schedule by 04/09/22. Medication Education In Progress No Patient/caregiver will be able to identify and report symptoms of sepsis Description: Patient/caregiver will be able to identify signs/symptoms of sepsis infection and will verbalize actions to take if suspected by 04/09/22. Sepsis In Progress No Patient to maintain parameters within physician-specified ranges throughout certification period Physician Specific Parameters In Progress No Manage Risk for falls Description: Patient/caregiver will verbalize knowledge of individualized fall prevention strategies by 04/09/22. Risk for Falls In Progress No Manage Pain Description: Patient/caregiver will verbalize knowledge and understanding of appropriate techniques to control pain, including non-pharmacological techniques. Patient will verbalize or demonstrate an acceptable level of pain as evidenced by a pain score of 2/10 and improvement in ability to perform activities of daily living to be achieved by 04/09/22. Pain Completed Yes Manage Nutrition/Hydration Description: Patient/caregiver will verbalize/demonstrate knowledge of prescribed diet and/or healthy nutrition to be achieved by 04/09/22. Nutrition/Hydration In Progress No Patient/caregiver will teach back high risk medication side effect and precaution education High Risk Medications In Progress No Improved management of respiratory condition Description: Improve respiratory management as evidenced by patient/caregiver's ability to teach back strategies for improving respiratory status by 03/01/22. SN Respiratory Disease In Progress No Patient will have improved edema management Description: Patient/caregiver will demonstrate an understanding of edema management strategies as evidenced by resolution or stabilization of edema by 03/01/22. SN Edema Completed Yes Patient/Caregiver will have improved healing and be free of signs and symptoms of complications Description: Patient/caregiver will verbalize management strategies to promote wound healing & prevent complications as evidenced by improved healing & no complications by 03/01/22. SN Integumentary/Wounds Completed Yes Improved management of Heart Failure Description: Improve HF management as evidenced by stable weights, reduced edema, and less symptoms reported by patient to be achieved by 03/01/22. SN Heart Failure In Progress No Improved management of cardiovascular disease Description: Improve patient/caregiver management of cardiac disease as evidenced by patient/caregiver ability to teach back cardiac management strategies by 03/01/22. SN Cardiovascular Condition In Progress No Demonstrate understanding of education Description: Patient and/or caregiver will verbalize understanding of educational instruction provided throughout certification period. SN Learning Assessment In Progress No Patient/Caregiver will verbalize understanding and demonstrate improved management of genitourinary disease/condition. Description: Patient/Caregiver will state understanding of genitourinary disease/condition and be able to teach back management strategies by 03/01/22. SN Genitourinary disease process In Progress No Interventions Intervention Associated Problem/Goal Status Variance Visit Notes Medication Education Description: Evaluate/instruct patient/caregiver on obtaining, storing, identifying and administering ordered medications as well as keeping accurate medication list in the home and adhereing to medication schedule Problem:Medication Education Goal:Patient/caregiver will demonstrate ability to obtain, store, identify and administer ordered medications, keep accurate medication list in home, and adhere to medication schedule Completed Patient instructed on adhering to medication schedule. Risk of Sepsis Description: Patient is at risk for sepsis. Monitor closely for s/s of sepsis. Problem:Sepsis Goal:Patient/caregiver will be able to identify and report symptoms of sepsis Completed Weight Description: Notify Dr. Bonilla of weight change of 4lbs. Problem:Physician Specific Parameters Goal:Patient to maintain parameters within physician-specified ranges throughout certification period Completed SPO2 Description: Stop activity if pulse ox is <92% at rest. Problem:Physician Specific Parameters Goal:Patient to maintain parameters within physician-specified ranges throughout certification period Completed Instruct on individual fall risk factors and strategies to prevent falls and injuries caused by falls. Problem:Risk for Falls Goal:Manage Risk for falls Completed SN: Patient instructed on Eliminating Environmental Hazards: Keep pathways clear Managing Impaired Functional Mobility: Use assistive device(s): rollator walker when going out Define patient s appetite/hydration status and implement strategies to improve compliance with prescribed diet and/or healthy nutrition. Problem:Nutrition/Hydr ation Goal:Manage Nutrition/Hydration Completed reinforced patient on implementing strategies to comply with prescribed diet, healthy nutrition and adequate hydration Coumadin/Warfarin-Inst ruct on high risk medication Problem:High Risk Medications Goal:Patient/caregiver will teach back high risk medication side effect and precaution education Completed patient instructed on Warfarin Take your warfarin as instructed and at the same time each day. Have your blood tested as instructed to check how quickly your blood is clotting. Discuss all medications you are taking -- even [id number] medicines -- with your doctor and pharmacist since many drugs can interact with warfarin. Tell anyone providing medical or dental care that you are taking warfarin. Eat about the same amount of foods with vitamin K each week, for example leafy greens, as these foods can affect the way warfarin works. If you forget to take a pill, DO NOT take a double dose. Take the missed dose as soon as possible on the same day. DO NOT take a double dose of warfarin the next day to make up for the missed dose. Watch for signs of abnormal or excessive bleeding and bruising. Call your health care provider right away if you suspect something is wrong. DO NOT STOP your warfarin even for a minor procedure like dental work without first checking with the doctor who monitors your therapy. It is best to avoid alcohol while taking warfarin. Instruct on respiratory disease process and management of condition Description: Patient has following respiratory diagnosis(es): pleural effusion Problem:SN Respiratory Disease Goal:Improved management of respiratory condition Completed patient assessed and instructed on self monitoring & symptom reporting. C. Maintenance Heart Failure Description: Reinforce acute and sub-acute management education. Instruct patient/caregiver on zone sheet, living with heart failure, effect of HF on sexual relationships, stress management, emotional health and additional HF resources available as found in the HF binder. Problem:SN Heart Failure Goal:Improved management of Heart Failure Completed Reinforced acute and sub-acute management education. patient assessed and instructed on zone sheet and living with heart failure as found in the HF binder. Instruct on cardiovascular disease process and management of condition Description: Patient has following cardiac diagnosis(es): AFIB and Hypertension. Problem:SN Cardiovascular Condition Goal:Improved management of cardiovascular disease Completed patient instructed on cardiac disease process and self monitoring & symptom reporting. Instruct and educate on knowledge deficits Problem:SN Learning Assessment Goal:Demonstrate understanding of education Completed patient verbalize and/or demonstrate understanding of nursing education completed today. Education methods include: verbal cues and written instructions. Further education required to improve knowledge and compliance with cardiac disease management, fall prevention/home safety strategies, hematological care management, medication management and nutrition. Incontinence- Instruct Patient/Caregiver on measures to manage urinary incontinence Problem:SN Genitourinary disease process Goal:Patient/Caregiver will verbalize understanding and demonstrate improved management of genitourinary disease/condition. Completed patient instructed on measures to manage Urinary incontinence including: scheduled bathroom trips. [facility] Visit Details Visit Type -PT ROUTINE Discipline -Physical Therapy Problems Problem Description Start Date Status Goals Interve ntions Sepsis Disciplines: Skilled Services 02/09/2022 Active 1 goal linked to scheduled/document ed intervention 1 goal intervention scheduled/documen jil in this visit Physician Specific Parameters Disciplines: Skilled Services 02/09/2022 Active 1 goal linked to scheduled/document ed intervention 2 goal interventions scheduled/documen jil in this visit Risk for Falls Disciplines: Skilled Services 02/09/2022 Active 1 goal linked to scheduled/document ed intervention 1 goal intervention scheduled/documen jil in this visit PT Impaired muscle performance and/or ROM Disciplines: PT 02/11/2022 Active 1 goal linked to scheduled/document ed intervention 1 goal intervention scheduled/documen jil in this visit PT Impaired gait Disciplines: PT 02/11/2022 Active 2 goals linked to scheduled/document ed interventions 2 goal interventions scheduled/documen jil in this visit PT Impaired balance Disciplines: PT 02/11/2022 Active 1 goal linked to scheduled/document ed intervention 1 goal intervention scheduled/documen jil in this visit PT Learning Assessment Disciplines: PT 02/11/2022 Active 1 goal linked to scheduled/document ed intervention 1 goal intervention scheduled/documen jil in this visit PT Cardiovascular Disease Disciplines: PT 02/11/2022 Active 1 goal linked to scheduled/document ed intervention 1 goal intervention scheduled/documen jil in this visit Goals Goal Associated Problem Outcome Goal Met? Visit Notes Patient/caregiver will be able to identify and report symptoms of sepsis Description: Patient/caregiver will be able to identify signs/symptoms of sepsis infection and will verbalize actions to take if suspected by 04/09/22. Sepsis No Patient to maintain parameters within physician-specified ranges throughout certification period Physician Specific Parameters No Manage Risk for falls Description: Patient/caregiver will verbalize knowledge of individualized fall prevention strategies by 04/09/22. Risk for Falls No Improved Muscle Performance and/or ROM Description: LTG: Patient will demonstrate improved muscle performance to meet functional goals as evidenced by ability to tolerate 10 min of standing activity, to be achieved by 03/12/22. STG: Patient and/or caregiver will verbalize/demonstrate independence with home exercise program, to improve functional mobility, to be achieved by 03/01/22. PT Impaired muscle performance and/or ROM No Improved Stair Climbing Description: LTG: Patient will demonstrate improved stair negotiation as evidenced by ascend/descend 15 steps with railing independently, to safely access all areas of the home, access community and exit home, to be achieved by 03/12/22. . PT Impaired gait No Improved Gait Description: LTG: Patient will demonstrate improved gait ability as evidenced by ambulation 200 feet with no device independently, to return to safe household and community ambulation, in order to return to plf, to be achieved by 03/12/22. PT Impaired gait No Improved Balance Description: LTG: Patient will demonstrate improved standing balance to meet functional goals as evidenced by TUG score of <20 to be achieved by 03/12/22. PT Impaired balance No Demonstrate understanding of education Description: Patient and/or caregiver will understand educational instruction to be achieved by 03/12/22. . PT Learning Assessment No Manage Primary Cardiovascular Disease Description: Improve patient and/or caregiver understanding of primary cardiovascular disease management as evidenced by patient and/or caregiver able to verbalize, demonstrate, and teach back instruction, to be achieved by 03/12/22 PT Cardiovascular Disease No Interventions Intervention Associated Problem/Goal Status Variance Visit Notes Risk of Sepsis Description: Patient is at risk for sepsis. Monitor closely for s/s of sepsis. Problem:Sepsis Goal:Patient/caregiver will be able to identify and report symptoms of sepsis Completed Weight Description: Notify Dr. Bonilla of weight change of 4lbs. Problem:Physician Specific Parameters Goal:Patient to maintain parameters within physician-specified ranges throughout certification period Completed SPO2 Description: Stop activity if pulse ox is <92% at rest. Problem:Physician Specific Parameters Goal:Patient to maintain parameters within physician-specified ranges throughout certification period Completed Instruct on individual fall risk factors and strategies to prevent falls and injuries caused by falls. Problem:Risk for Falls Goal:Manage Risk for falls Completed PT: Patient instructed on Eliminating Environmental Hazards: Keep pathways clear, Keep pets out of pathways, Move furniture from pathways and Keep rooms and walkways well lit Managing Impaired Functional Mobility: Use assistive device(s): front wheeled walker- as needed Physical Therapy Therapeutic Exercises Problem:PT Impaired muscle performance and/or ROM Goal:Improved Muscle Performance and/or ROM Completed patient instructed on strengthening exercises including- SEATED: FAQ, HIP FLEX, AP X10 STANDING : HEEL RAISES, TOE RAISES , KNEE FLEX, H HIP FLEX, HIP ABD X 10 with verbal cues for technique . patient instructed to perform home exercise program daily which included hourly ambulation. Physical Therapy Stair Training Problem:PT Impaired gait Goal:Improved Stair Climbing Completed step ups x 10 each leg with unilateral rail - right le much more challenging than the left Physical Therapy Gait Training Problem:PT Impaired gait Goal:Improved Gait Completed Gait training and instruction to patient on safe ambulation with no device for 30 feet with supervision, with verbal cues for corrections of gait deviations including pacing . Physical Therapy Balance Training Problem:PT Impaired balance Goal:Improved Balance Completed Developed, implemented, and instructed patient on standing balance exercises including standing ther ex. Instruct and educate on knowledge deficits Problem:PT Learning Assessment Goal:Demonstrate understanding of education Completed patient verbalize and/or demonstrate understanding of physical therapy education including cardiac disease management, fall prevention strategies, home safety and home exercise program. Education methods include: verbal cues. Further education required to improve knowledge and compliance with cardiac disease management, home safety, functional activity and home exercise program. Instruct on signs, symptoms, and management of primary cardiovascular disease Problem:PT Cardiovascular Disease Goal:Manage Primary Cardiovascular Disease Completed Instructed patient on instructed on when to call provider. documented in this encounter [facility] home Plan of care note* Visit Details Visit Type -SN ROUTINE Discipline -Senior Care Problems Problem Description Start Date Status Goals Interve ntions Medication Education Disciplines: Skilled Services 02/09/2022 Active 1 goal linked to scheduled/docume nted intervention 1 goal intervention scheduled/documen jil in this visit Sepsis Disciplines: Skilled Services 02/09/2022 Active 1 goal linked to scheduled/docume nted intervention 1 goal intervention scheduled/documen jil in this visit Physician Specific Parameters Disciplines: Skilled Services 02/09/2022 Active 1 goal linked to scheduled/docume nted intervention 2 goal interventions scheduled/documen jil in this visit Risk for Falls Disciplines: Skilled Services 02/09/2022 Active 1 goal linked to scheduled/docume nted intervention Nutrition/Hydration Disciplines: Skilled Services 02/09/2022 Resolved on 02/24/2022 1 goal linked to scheduled/docume nted intervention 1 goal intervention scheduled/documen jil in this visit High Risk Medications Disciplines: Skilled Services 02/09/2022 Active 1 goal linked to scheduled/docume nted intervention 1 goal intervention scheduled/documen jil in this visit SN Respiratory Disease Disciplines: 02/09/2022 Active 1 goal linked to scheduled/docume nted intervention 1 goal intervention scheduled/documen jil in this visit SN Heart Failure Disciplines: SN 02/09/2022 Active 1 goal linked to scheduled/docume nted intervention 1 goal intervention scheduled/documen jil in this visit SN Cardiovascular Condition Disciplines: 02/09/2022 Active 1 goal linked to scheduled/docume nted intervention 1 goal intervention scheduled/documen jil in this visit SN Learning Assessment Disciplines: SN 02/09/2022 Active 1 goal linked to scheduled/docume nted intervention 1 goal intervention scheduled/documen jil in this visit SN Genitourinary disease process Disciplines: 02/09/2022 Resolved on 02/24/2022 1 goal linked to scheduled/docume nted intervention 1 goal intervention scheduled/documen jil in this visit SN Labwork Disciplines: SN 02/23/2022 Resolved on 02/24/2022 1 goal linked to scheduled/docume nted intervention 1 goal intervention scheduled/documen jil in this visit Goals Goal Associated Problem Outcome Goal Met? Visit Notes Patient/caregiver will demonstrate ability to obtain, store, identify and administer ordered medications, keep accurate medication list in home, and adhere to medication schedule Description: Patient/caregiver will demonstrate ability to obtain, store, identify and administer ordered medications, keep accurate medication list in home, and adhere to medication schedule by 04/09/22. Medication Education In Progress No Patient/caregiver will be able to identify and report symptoms of sepsis Description: Patient/caregiver will be able to identify signs/symptoms of sepsis infection and will verbalize actions to take if suspected by 04/09/22. Sepsis In Progress No Patient to maintain parameters within physician-specified ranges throughout certification period Physician Specific Parameters In Progress No Manage Risk for falls Description: Patient/caregiver will verbalize knowledge of individualized fall prevention strategies by 04/09/22. Risk for Falls In Progress No Manage Nutrition/Hydration Description: Patient/caregiver will verbalize/demonstrate knowledge of prescribed diet and/or healthy nutrition to be achieved by 04/09/22. Nutrition/Hydration Completed Yes Patient/caregiver will teach back high risk medication side effect and precaution education High Risk Medications In Progress No Improved management of respiratory condition Description: Improve respiratory management as evidenced by patient/caregiver's ability to teach back strategies for improving respiratory status by 03/01/22. SN Respiratory Disease In Progress No Improved management of Heart Failure Description: Improve HF management as evidenced by stable weights, reduced edema, and less symptoms reported by patient to be achieved by 03/01/22. SN Heart Failure In Progress No Improved management of cardiovascular disease Description: Improve patient/caregiver management of cardiac disease as evidenced by patient/caregiver ability to teach back cardiac management strategies by 03/01/22. SN Cardiovascular Condition Completed Yes Demonstrate understanding of education Description: Patient and/or caregiver will verbalize understanding of educational instruction provided throughout certification period. SN Learning Assessment In Progress No Patient/Caregiver will verbalize understanding and demonstrate improved management of genitourinary disease/condition. Description: Patient/Caregiver will state understanding of genitourinary disease/condition and be able to teach back management strategies by 03/01/22. SN Genitourinary disease process Completed Yes SN to obtain lab specimen without difficulty when ordered throughout certification period SN Labwork Completed Yes Interventions Intervention Associated Problem/Goal Status Variance Visit Notes Medication Education Description: Evaluate/instruct patient/caregiver on obtaining, storing, identifying and administering ordered medications as well as keeping accurate medication list in the home and adhereing to medication schedule Problem:Medication Education Goal:Patient/caregiver will demonstrate ability to obtain, store, identify and administer ordered medications, keep accurate medication list in home, and adhere to medication schedule Completed Patient instructed on adhering to medication schedule. Risk of Sepsis Description: Patient is at risk for sepsis. Monitor closely for s/s of sepsis. Problem:Sepsis Goal:Patient/caregiver will be able to identify and report symptoms of sepsis Completed Weight Description: Notify Dr. Bonilla of weight change of 4lbs. Problem:Physician Specific Parameters Goal:Patient to maintain parameters within physician-specified ranges throughout certification period Completed SPO2 Description: Stop activity if pulse ox is <92% at rest. Problem:Physician Specific Parameters Goal:Patient to maintain parameters within physician-specified ranges throughout certification period Completed Define patient s appetite/hydration status and implement strategies to improve compliance with prescribed diet and/or healthy nutrition. Problem:Nutrition/Hydr ation Goal:Manage Nutrition/Hydration Completed reinforced patient on implementing strategies to comply with prescribed diet and healthy nutrition Coumadin/Warfarin-Inst ruct on high risk medication Problem:High Risk Medications Goal:Patient/caregiver will teach back high risk medication side effect and precaution education Completed patient instructed on Warfarin Take your warfarin as instructed and at the same time each day. Have your blood tested as instructed to check how quickly your blood is clotting. Discuss all medications you are taking -- even [id number] medicines -- with your doctor and pharmacist since many drugs can interact with warfarin. Tell anyone providing medical or dental care that you are taking warfarin. Eat about the same amount of foods with vitamin K each week, for example leafy greens, as these foods can affect the way warfarin works. If you forget to take a pill, DO NOT take a double dose. Take the missed dose as soon as possible on the same day. DO NOT take a double dose of warfarin the next day to make up for the missed dose. Watch for signs of abnormal or excessive bleeding and bruising. Call your health care provider right away if you suspect something is wrong. DO NOT STOP your warfarin even for a minor procedure like dental work without first checking with the doctor who monitors your therapy. It is best to avoid alcohol while taking warfarin. Instruct on respiratory disease process and management of condition Description: Patient has following respiratory diagnosis(es): pleural effusion Problem:SN Respiratory Disease Goal:Improved management of respiratory condition Completed patient assessed and reinforced on self monitoring & symptom reporting. C. Maintenance Heart Failure Description: Reinforce acute and sub-acute management education. Instruct patient/caregiver on zone sheet, living with heart failure, effect of HF on sexual relationships, stress management, emotional health and additional HF resources available as found in the HF binder. Problem:SN Heart Failure Goal:Improved management of Heart Failure Completed Reinforced acute and sub-acute management education. patient assessed and reinforced on zone sheet and living with heart failure as found in the HF binder. Instruct on cardiovascular disease process and management of condition Description: Patient has following cardiac diagnosis(es): AFIB and Hypertension. Problem:SN Cardiovascular Condition Goal:Improved management of cardiovascular disease Completed patient instructed on self monitoring & symptom reporting. Instruct and educate on knowledge deficits Problem:SN Learning Assessment Goal:Demonstrate understanding of education Completed patient verbalize and/or demonstrate understanding of nursing education completed today. Education methods include: verbal cues. Further education required to improve knowledge and compliance with cardiac disease management, fall prevention/home safety strategies, hematological care management, medication management, nutrition and pulmonary disease management. Incontinence- Instruct Patient/Caregiver on measures to manage urinary incontinence Problem:SN Genitourinary disease process Goal:Patient/Caregiver will verbalize understanding and demonstrate improved management of genitourinary disease/condition. Completed patient instructed on measures to manage Urinary incontinence including: scheduled bathroom trips. SN to obtain blood specimen (1) Description: Draw blood via venipuncture for PT/INR with a frequency of once on Date: 02/24/22 (Z79.01). Results to [place]. *Order is in [facility]* Problem:SN Labwork Goal:SN to obtain lab specimen without difficulty when ordered throughout certification period Completed documented in this [facility] Plan of care note* Visit Details Visit Type -SN ROUTINE Discipline -Senior Care Problems Problem Description Start Date Status Goals Interve ntions Medication Education Disciplines: Skilled Services 02/09/2022 Resolved on 03/02/2022 1 goal linked to scheduled/documen jil intervention 1 goal intervention scheduled/document ed in this visit Sepsis Disciplines: Skilled Services 02/09/2022 Resolved on 03/02/2022 1 goal linked to scheduled/documen jil intervention 1 goal intervention scheduled/document ed in this visit Physician Specific Parameters Disciplines: Skilled Services 02/09/2022 Resolved on 03/02/2022 1 goal linked to scheduled/documen jil intervention 2 goal interventions scheduled/document ed in this visit Risk for Falls Disciplines: Skilled Services 02/09/2022 Resolved on 03/02/2022 1 goal linked to scheduled/documen jil intervention 1 goal intervention scheduled/document ed in this visit High Risk Medications Disciplines: Skilled Services 02/09/2022 Active 1 goal linked to scheduled/documen jil intervention 1 goal intervention scheduled/document ed in this visit Discharge Disciplines: Skilled Services 02/09/2022 Active 1 goal linked to scheduled/documen jil intervention 2 goal interventions scheduled/document ed in this visit SN Respiratory Disease Disciplines: SN 02/09/2022 Resolved on 03/02/2022 1 goal linked to scheduled/documen jil intervention 1 goal intervention scheduled/document ed in this visit SN Heart Failure Disciplines: SN 02/09/2022 Resolved on 03/02/2022 1 goal linked to scheduled/documen jil intervention 2 goal interventions scheduled/document ed in this visit SN Learning Assessment Disciplines: SN 02/09/2022 Resolved on 03/02/2022 1 goal linked to scheduled/documen jil intervention 1 goal intervention scheduled/document ed in this visit Goals Goal Associated Problem Outcome Goal Met? Visit Notes Patient/caregiver will demonstrate ability to obtain, store, identify and administer ordered medications, keep accurate medication list in home, and adhere to medication schedule Description: Patient/caregiver will demonstrate ability to obtain, store, identify and administer ordered medications, keep accurate medication list in home, and adhere to medication schedule by 04/09/22. Medication Education Completed Yes Patient/caregiver will be able to identify and report symptoms of sepsis Description: Patient/caregiver will be able to identify signs/symptoms of sepsis infection and will verbalize actions to take if suspected by 04/09/22. Sepsis Completed Yes Patient to maintain parameters within physician-specified ranges throughout certification period Physician Specific Parameters Completed Yes Manage Risk for falls Description: Patient/caregiver will verbalize knowledge of individualized fall prevention strategies by 04/09/22. Risk for Falls Completed Yes Patient/caregiver will teach back high risk medication side effect and precaution education High Risk Medications In Progress No Manage discharge planning Description: Patient/caregiver will verbalize understanding of ongoing discharge plan provided related to disease management, arrangements for outpatient and/or community services, obtaining medications, supplies, and DME, as needed throughout certification period. Discharge In Progress No Improved management of respiratory condition Description: Improve respiratory management as evidenced by patient/caregiver's ability to teach back strategies for improving respiratory status by 03/01/22. SN Respiratory Disease Completed Yes Improved management of Heart Failure Description: Improve HF management as evidenced by stable weights, reduced edema, and less symptoms reported by patient to be achieved by 03/01/22. SN Heart Failure Completed Yes Demonstrate understanding of education Description: Patient and/or caregiver will verbalize understanding of educational instruction provided throughout certification period. SN Learning Assessment Completed Yes Interventions Intervention Associated Problem/Goal Status Variance Visit Notes Medication Education Description: Evaluate/instruct patient/caregiver on obtaining, storing, identifying and administering ordered medications as well as keeping accurate medication list in the home and adhereing to medication schedule Problem:Medication Education Goal:Patient/caregive r will demonstrate ability to obtain, store, identify and administer ordered medications, keep accurate medication list in home, and adhere to medication schedule Completed Patient instructed on adhering to medication schedule. Risk of Sepsis Description: Patient is at risk for sepsis. Monitor closely for s/s of sepsis. Problem:Sepsis Goal:Patient/caregive r will be able to identify and report symptoms of sepsis Completed Weight Description: Notify Dr. Bonilla of weight change of 4lbs. Problem:Physician Specific Parameters Goal:Patient to maintain parameters within physician-specified ranges throughout certification period Completed SPO2 Description: Stop activity if pulse ox is <92% at rest. Problem:Physician Specific Parameters Goal:Patient to maintain parameters within physician-specified ranges throughout certification period Completed Instruct on individual fall risk factors and strategies to prevent falls and injuries caused by falls. Problem:Risk for Falls Goal:Manage Risk for falls Completed SN: Patient instructed on Eliminating Environmental Hazards: Keep pathways clear and Keep rooms and walkways well lit Managing Impaired Functional Mobility: Caregiver to provide assist with: Steps Coumadin/Warfarin-Inst ruct on high risk medication Problem:High Risk Medications Goal:Patient/caregive r will teach back high risk medication side effect and precaution education Completed patient instructed on Warfarin Take your warfarin as instructed and at the same time each day. Have your blood tested as instructed to check how quickly your blood is clotting. Discuss all medications you are taking -- even rnoz-qxw-umnukzu medicines -- with your doctor and pharmacist since many drugs can interact with warfarin. Tell anyone providing medical or dental care that you are taking warfarin. Eat about the same amount of foods with vitamin K each week, for example leafy greens, as these foods can affect the way warfarin works. If you forget to take a pill, DO NOT take a double dose. Take the missed dose as soon as possible on the same day. DO NOT take a double dose of warfarin the next day to make up for the missed dose. Watch for signs of abnormal or excessive bleeding and bruising. Call your health care provider right away if you suspect something is wrong. DO NOT STOP your warfarin even for a minor procedure like dental work without first checking with the doctor who monitors your therapy. It is best to avoid alcohol while taking warfarin. Deliver NOMNC Problem:Discharge Goal:Manage discharge planning Completed Delivered NOMNC on 03/02/22 for discharge date of 03/04/22. Instruct on ongoing discharge plan Problem:Discharge Goal:Manage discharge planning Completed Ongoing Discharge plan: Discharge plan discussed with patient including frequency and duration for home SN and plan for transition to: live independently at home without ongoing services. Instruct on respiratory disease process and management of condition Description: Patient has following respiratory diagnosis(es): pleural effusion Problem:SN Respiratory Disease Goal:Improved management of respiratory condition Completed patient assessed and reinforced on self monitoring & symptom reporting. C. Maintenance Heart Failure Description: Reinforce acute and sub-acute management education. Instruct patient/caregiver on zone sheet, living with heart failure, effect of HF on sexual relationships, stress management, emotional health and additional HF resources available as found in the HF binder. Problem:SN Heart Failure Goal:Improved management of Heart Failure Completed Reinforced acute and sub-acute management education. patient assessed and reinforced on zone sheet and living with heart failure as found in the HF binder. Ensure patient/caregiver has Heart Failure Binder and scale in home Description: SN to provide and refer to HF binder every visit. Ensure patient has scale. Problem:SN Heart Failure Goal:Improved management of Heart Failure Completed Patient has HF binder. Patient has scale. Instruct and educate on knowledge deficits Problem:SN Learning Assessment Goal:Demonstrate understanding of education Completed patient verbalize and/or demonstrate understanding of nursing education completed today. Education methods include: verbal cues and written instructions. Further education required to improve knowledge and compliance with cardiac disease management, fall prevention/home safety strategies, genitourinary care management, medication management, nutrition and pulmonary disease management. documented in this encounter [facility]'s home Plan of care note* Visit Details Visit Type -SN AGENCY DC WO VISIT Discipline -Senior Care Problems Problem Description Start Date Status Goals Interve ntions High Risk Medications Disciplines: Skilled Services 02/09/2022 Resolved on 03/04/2022 1 goal linked to scheduled/document ed intervention 1 goal intervention scheduled/document ed in this visit Discharge Disciplines: Skilled Services 02/09/2022 Resolved on 03/04/2022 1 goal linked to scheduled/document ed intervention 1 goal intervention scheduled/document ed in this visit Goals Goal Associated Problem Outcome Goal Met? Visit Notes Patient/caregiver will teach back high risk medication side effect and precaution education High Risk Medications Completed Yes Manage discharge planning Description: Patient/caregiver will verbalize understanding of ongoing discharge plan provided related to disease management, arrangements for outpatient and/or community services, obtaining medications, supplies, and DME, as needed throughout certification period. Discharge Completed Yes Interventions Intervention Associated Problem/Goal Status Variance Visit Notes Coumadin/Warfarin-Ins truct on high risk medication Problem:High Risk Medications Goal:Patient/caregive r will teach back high risk medication side effect and precaution education Completed patient instructed on Warfarin Take your warfarin as instructed and at the same time each day. Have your blood tested as instructed to check how quickly your blood is clotting. Discuss all medications you are taking -- even hjqt-lap-gqurgkp medicines -- with your doctor and pharmacist since many drugs can interact with warfarin. Tell anyone providing medical or dental care that you are taking warfarin. Eat about the same amount of foods with vitamin K each week, for example leafy greens, as these foods can affect the way warfarin works. If you forget to take a pill, DO NOT take a double dose. Take the missed dose as soon as possible on the same day. DO NOT take a double dose of warfarin the next day to make up for the missed dose. Watch for signs of abnormal or excessive bleeding and bruising. Call your health care provider right away if you suspect something is wrong. DO NOT STOP your warfarin even for a minor procedure like dental work without first checking with the doctor who monitors your therapy. It is best to avoid alcohol while taking warfarin. Instruct on final discharge plan and deliver discharge instructions Problem:Discharge Goal:Manage discharge planning Completed Delivered Discharge plan: Discharge plan discussed with patient for plan for transition to: live independently at home without ongoing services documented in this encounter [facility] for referral (narrative)* Diagnostic Procedure Only (Routine) - Authorized Specialty Diagnoses / Procedures Referred By [facility] Referred To Contact US IMAGING Diagnoses Thyroid nodule Procedures US THYROID/PARATHYROID US SOFT TISSUE HEAD & NECK REAL TIME IMGE DOCM Wes Bonilla MD [address] [place] [address] Us Imaging Referral ID Status Reason Start Date Expiration Date Visits Requested Visits Authorized [id number] Authorized Auto-Generat ed Referral 2 05/19/2023 1 1 [facility] for referral (narrative)* Diagnostic Procedure Only (Urgent) - Closed Specialty Diagnoses / Procedures [facility] Referred To Contact XR IMAGING Diagnoses Rib pain Procedures XR RIBS/CHEST 3V AP RIB/OBLS/CXR LEFT RADEX RIBS UNI W/POSTEROANT CH MINIMUM 3 VIEWS Shannon Chiu APRN.CNP [address] [place] [address] Xr Imaging Referral ID Status Reason Start Date Expiration Date V isits Requested Visits Authorized [id number] Closed Auto-Generate d Referral 05/17/2022 06/16/2023 1 1 [facility] for referral (narrative)* Diagnostic Procedure Only (Routine) - Authorized Specialty Diagnoses / Procedures [facility] Referred To Contact US IMAGING Diagnoses Renal mass Liver mass Procedures US ABDOMEN COMPLETE US ABDOMINAL REAL TIME W/IMAGE DOCUMENTATION Wes Bonilla MD [address] [place] [address] Us Imaging Referral ID Status Reason Start Date Expiration Date Visits Requested Visits Authorized [id number] Authorized Auto-Generat ed Referral 09/01/2022 10/01/2023 1 1 [facility] for referral (narrative)* Diagnostic Procedure Only (Routine) - Closed Specialty Diagnoses / Procedures Referred By Contac t Referred To Contact XR IMAGING Diagnoses Abdominal swelling, generalized Epigastric pain Procedures XR ABDOMEN 1V SUPINE RADIOLOGIC EXAM ABDOMEN 1 VIEW Myah Mehta PA-C [address] [place] [address] Xr Imaging Referral ID Status Reason Start Date Expiration Date V isits Requested Visits Authorized [id number] Closed Auto-Generate d Referral 09/19/2022 10/19/2023 1 1 [facility] for referral (narrative)* Diagnostic Procedure Only (Routine) - Pending Review Specialty Diagnoses / Procedures Referred By Contac t Referred To Contact MOLECULAR & FUNCTIONAL IMAGING Diagnoses Elevated alkaline phosphatase level Procedures NM BONE WHOLE BODY BONE &/JOINT IMAGING WHOLE BODY Myah Mehta PA-C [address] [place] [address] Molecular & Functional Imaging [address] [place] [address] Referral ID Status Reason Start Date Expiration Date Visits Requested Visits Authorized [id number] Pending Review Auto-Generat ed Referral 10/05/2022 11/04/2023 1 1 [facility] for referral (narrative)* Diagnostic Procedure Only (Routine) - Closed Specialty Diagnoses / Procedures Referred By Contac t Referred To Contact US IMAGING Diagnoses Renal mass Liver mass Procedures US ABDOMEN COMPLETE US ABDOMINAL REAL TIME W/IMAGE DOCUMENTATION Wes Bonilla MD [address] [place] [address] [place] [address] Referral ID Status Reason Start Date Expiration Date V isits Requested Visits Authorized [id number] Closed Auto-Generate d Referral 09/01/2022 10/01/2023 1 1 [facility] for referral (narrative)* Diagnostic Procedure Only (Routine) - Closed Specialty Diagnoses / Procedures Referred By Contac t Referred To Contact MOLECULAR & FUNCTIONAL IMAGING Diagnoses Elevated alkaline phosphatase level Procedures NM BONE WHOLE BODY BONE &/JOINT IMAGING WHOLE BODY Myah Mehta PA-C [address] [place] [address] Molecular & Functional Imaging [address] [place] [address] Referral ID Status Reason Start Date Expiration Date V isits Requested Visits Authorized [id number] Closed Auto-Generate d Referral 10/05/2022 11/04/2023 1 1 [facility] for referral (narrative)* Diagnostic Procedure Only (Routine) - Closed Specialty Diagnoses / Procedures Referred By Contac t Referred To Contact US IMAGING Diagnoses Thyroid nodule Procedures US THYROID/PARATHYROID US SOFT TISSUE HEAD & NECK REAL TIME IMGE Wes Watts MD [address] [place] [address] [place] [address] Referral ID Status Reason Start Date Expiration Date V isits Requested Visits Authorized [id number] Closed Auto-Generate d Referral 04/19/2022 05/19/2023 1 1 [facility] for visit Narrative* Diagnostic Procedure Only (Routine) - Closed Specialty Diagnoses / Procedures Referred By Contgale t Referred To Contact MOLECULAR & FUNCTIONAL IMAGING Diagnoses Elevated alkaline phosphatase level Procedures NM BONE WHOLE BODY BONE &/JOINT IMAGING WHOLE BODY Myah Mehta PA-C [address] [place] [address] Molecular & Functional Imaging [address] [place] [address] Referral ID Status Reason Start Date Expiration Date V isits Requested Visits Authorized [id number] Closed Auto-Generate d Referral 10/05/2022 11/04/2023 1 1 [facility] Summary Purpose Family History No Family History Records FoundNo Family History Records FoundNo Family History Records Found Advance Directives No Advanced Directives Records FoundDocuments on File Type Date 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 Directive(s) 07/07/2021 1:21 PM Advance Directive(s) 07/06/2021 8:02 AM Advance Directive(s) 11/21/2019 3:25 PM Documents on File Type Date 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(s) 07/07/2021 1:21 PM Advance Directive(s) 07/06/2021 8:02 AM Advance Directive(s) 11/21/2019 3:25 PM Documents on File Type Date 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 Directive(s) 02/09/2022 12:27 PM Latest Code Status on File Code Status Date Activated Date Inactivated Comments Full Code 02/10/2022 11:13 AM Documents on File Type Date 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 Directive(s) 02/09/2022 12:27 PM Latest Code Status on File Code Status Date Activated Date Inactivated Comments Full Code 02/10/2022 11:13 AM Latest Code Status on File Code Status Date Activated Date Inactivated Comments Full Code 02/10/2022 11:13 AM Latest Code Status on File Code Status Date Activated Date Inactivated Comments Full Code 02/10/2022 11:13 AM Reason for Referral Specialty Diagnoses / Procedures Referred By Contac t Referred To Contact Pulmonary and Critical Care Medicine Diagnoses Pleural effusion Procedures CONSULT TO PULM/CRITICAL CARE OFFICE/OUTPATIENT [facility] 60-74 MINUTES Wes Bonilla MD [address] [place] [address] Referral ID Status Reason Start Date Expiration Date Visits Requested Visits Authorized [id number] Authorized PCP Requested Referral 08/25/2021 08/25/2022 1 1 Specialty Diagnoses / Procedures Referred By Contac t Referred To Contact General Surgery Diagnoses Thyroid nodule History of colonic polyps Procedures CONSULT TO GENERAL SURGERY OFFICE/OUTPATIENT [facility] 60-74 MINUTES Wes Bonilla MD [address] [place] [address] Referral ID Status Reason Start Date Expiration Date Visits Requested Visits Authorized [id number] Authorized PCP Requested Referral 10/04/2021 10/04/2022 1 1 Referral ID Status Reason Start Date Expiration Date Visits Requested Visits Authorized [id number] Authorized PCP Requested Referral 02/14/2022 02/14/2023 1 1 Specialty Diagnoses / Procedures Referred By Contac t Referred To Contact General Surgery Diagnoses Multiple thyroid nodules Procedures CONSULT TO GENERAL SURGERY OFFICE/OUTPATIENT [facility] 60-74 MINUTES Dalila Jensen DIVINITY PROFESSOR.PATIENT ACCESS DIRECTOR [address] [place] [id number] Referral ID Status Reason Start Date Expiration Date Visits Requested Visits Authorized [id number] Authorized PCP Requested Referral 05/20/2023 1 1 Specialty Diagnoses / Procedures Referred By Contac t Referred To Contact Orthopedics Diagnoses Upper back pain Procedures CONSULT TO ORTHOPAEDICS OFFICE/OUTPATIENT [facility] 60-74 MINUTES Shanta Logan, DIVINITY PROFESSOR.PATIENT ACCESS DIRECTOR [address] [place] [address] Referral ID Status Reason Start Date Expiration Date Visits Requested Visits Authorized [id number] Authorized PCP Requested Referral 06/29/2022 06/29/2023 1 1 Specialty Diagnoses / Procedures Referred By Contac t Referred To Contact Pain Management Diagnoses Compression deformity of vertebra Procedures CONSULT TO PAIN MGT OFFICE/OUTPATIENT [facility] 60-74 MINUTES Wes Bonilla MD [address] [place] [address] Referral ID Status Reason Start Date Expiration Date Visits Requested Visits Authorized [id number] Authorized PCP Requested Referral 08/19/2022 08/19/2023 1 1 Specialty Diagnoses / Procedures Referred By Contac t Referred To Contact MR IMAGING Diagnoses Pathological fracture, other site, initial encounter for fracture Procedures MRI THORACIC SPINE WO IVCON MRI SPINAL CANAL THORACIC W/O CONTRAST Myah Cadet PA-C [address] [place] [address] [place] [address] Referral ID Status Reason Start Date Expiration Date V isits Requested Visits Authorized [id number] Closed Auto-Generate d Referral 07/21/2022 08/20/2023 1 1 Specialty Diagnoses / Procedures Referred By Contac t Referred To Contact Gastroenterology Diagnoses 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 [place] [address] Referral ID Status Reason Start Date Expiration Date Visits Requested Visits Authorized [id number] Ref Not Required PCP Requested Referral 05/10/2023 05/09/2024 1 1 Additional Source Comments INFORMATION SOURCE (unrecogn ized section and content) DATE CREATED AUTHOR AUTHOR'S ORGANIZ ATION 05/13/2023 [facility] DATE CREATED AUTHOR AUTHOR'S ORGANIZ ATION 05/26/2023 [facility] Source Comments (unrecognize d section and content) In the event this informatio n is protected by the Federal Confidentiality of Alcohol and Drug Abuse Patient Records regulations: The Federal rules restrict any use of the information to criminally investigate or prosecute any alcohol or drug abuse patient.[facility] the event this information is protected by the Federal Confidentiality of Alcohol and Drug Abuse Patient Records regulations: The Federal rules restrict any use of the information to criminally investigate or prosecute any alcohol or drug abuse patient.[facility] the event this information is protected by the Federal Confidentiality of Alcohol and Drug Abuse Patient Records regulations: The Federal rules restrict any use of the information to criminally investigate or prosecute any alcohol or drug abuse patient.[facility] the event this information is protected by the Federal Confidentiality of Alcohol and Drug Abuse Patient Records regulations: The Federal rules restrict any use of the information to criminally investigate or prosecute any alcohol or drug abuse patient.[facility] the event this information is protected by the Federal Confidentiality of Alcohol and Drug Abuse Patient Records regulations: The Federal rules restrict any use of the information to criminally investigate or prosecute any alcohol or drug abuse patient.[facility] the event this information is protected by the Federal Confidentiality of Alcohol and Drug Abuse Patient Records regulations: The Federal rules restrict any use of the information to criminally investigate or prosecute any alcohol or drug abuse patient.[facility] the event this information is protected by the Federal Confidentiality of Alcohol and Drug Abuse Patient Records regulations: The Federal rules restrict any use of the information to criminally investigate or prosecute any alcohol or drug abuse patient.[facility] the event this information is protected by the Federal Confidentiality of Alcohol and Drug Abuse Patient Records regulations: The Federal rules restrict any use of the information to criminally investigate or prosecute any alcohol or drug abuse patient.[facility] the event this information is protected by the Federal Confidentiality of Alcohol and Drug Abuse Patient Records regulations: The Federal rules restrict any use of the information to criminally investigate or prosecute any alcohol or drug abuse patient.[facility] the event this information is protected by the Federal Confidentiality of Alcohol and Drug Abuse Patient Records regulations: The Federal rules restrict any use of the information to criminally investigate or prosecute any alcohol or drug abuse patient.[facility] the event this information is protected by the Federal Confidentiality of Alcohol and Drug Abuse Patient Records regulations: The Federal rules restrict any use of the information to criminally investigate or prosecute any alcohol or drug abuse patient.[facility] the event this information is protected by the Federal Confidentiality of Alcohol and Drug Abuse Patient Records regulations: The Federal rules restrict any use of the information to criminally investigate or prosecute any alcohol or drug abuse patient.[facility] the event this information is protected by the Federal Confidentiality of Alcohol and Drug Abuse Patient Records regulations: The Federal rules restrict any use of the information to criminally investigate or prosecute any alcohol or drug abuse patient.[facility] the event this information is protected by the Federal Confidentiality of Alcohol and Drug Abuse Patient Records regulations: The Federal rules restrict any use of the information to criminally investigate or prosecute any alcohol or drug abuse patient.[facility] the event this information is protected by the Federal Confidentiality of Alcohol and Drug Abuse Patient Records regulations: The Federal rules restrict any use of the information to criminally investigate or prosecute any alcohol or drug abuse patient.[facility] the event this information is protected by the Federal Confidentiality of Alcohol and Drug Abuse Patient Records regulations: The Federal rules restrict any use of the information to criminally investigate or prosecute any alcohol or drug abuse patient.[facility] the event this information is protected by the Federal Confidentiality of Alcohol and Drug Abuse Patient Records regulations: The Federal rules restrict any use of the information to criminally investigate or prosecute any alcohol or drug abuse patient.[facility] the event this information is protected by the Federal Confidentiality of Alcohol and Drug Abuse Patient Records regulations: The Federal rules restrict any use of the information to criminally investigate or prosecute any alcohol or drug abuse patient.[facility] the event this information is protected by the Federal Confidentiality of Alcohol and Drug Abuse Patient Records regulations: The Federal rules restrict any use of the information to criminally investigate or prosecute any alcohol or drug abuse patient.[facility] the event this information is protected by the Federal Confidentiality of Alcohol and Drug Abuse Patient Records regulations: The Federal rules restrict any use of the information to criminally investigate or prosecute any alcohol or drug abuse patient.[facility] the event this information is protected by the Federal Confidentiality of Alcohol and Drug Abuse Patient Records regulations: The Federal rules restrict any use of the information to criminally investigate or prosecute any alcohol or drug abuse patient.[facility] the event this information is protected by the Federal Confidentiality of Alcohol and Drug Abuse Patient Records regulations: The Federal rules restrict any use of the information to criminally investigate or prosecute any alcohol or drug abuse patient.[facility] the event this information is protected by the Federal Confidentiality of Alcohol and Drug Abuse Patient Records regulations: The Federal rules restrict any use of the information to criminally investigate or prosecute any alcohol or drug abuse patient.[facility] the event this information is protected by the Federal Confidentiality of Alcohol and Drug Abuse Patient Records regulations: The Federal rules restrict any use of the information to criminally investigate or prosecute any alcohol or drug abuse patient.[facility] the event this information is protected by the Federal Confidentiality of Alcohol and Drug Abuse Patient Records regulations: The Federal rules restrict any use of the information to criminally investigate or prosecute any alcohol or drug abuse patient.[facility] the event this information is protected by the Federal Confidentiality of Alcohol and Drug Abuse Patient Records regulations: The Federal rules restrict any use of the information to criminally investigate or prosecute any alcohol or drug abuse patient.[facility]In the event this information is protected by the Federal Confidentiality of Alcohol and Drug Abuse Patient Records regulations: The Federal rules restrict any use of the information to criminally investigate or prosecute any alcohol or drug abuse patient.[facility]In the event this information is protected by the Federal Confidentiality of Alcohol and Drug Abuse Patient Records regulations: The Federal rules restrict any use of the information to criminally investigate or prosecute any alcohol or drug abuse patient.[facility]In the event this information is protected by the Federal Confidentiality of Alcohol and Drug Abuse Patient Records regulations: The Federal rules restrict any use of the information to criminally investigate or prosecute any alcohol or drug abuse patient.[facility]In the event this information is protected by the Federal Confidentiality of Alcohol and Drug Abuse Patient Records regulations: The Federal rules restrict any use of the information to criminally investigate or prosecute any alcohol or drug abuse patient.[facility]In the event this information is protected by the Federal Confidentiality of Alcohol and Drug Abuse Patient Records regulations: The Federal rules restrict any use of the information to criminally investigate or prosecute any alcohol or drug abuse patient.[facility]In the event this information is protected by the Federal Confidentiality of Alcohol and Drug Abuse Patient Records regulations: The Federal rules restrict any use of the information to criminally investigate or prosecute any alcohol or drug abuse patient.[facility]In the event this information is protected by the Federal Confidentiality of Alcohol and Drug Abuse Patient Records regulations: The Federal rules restrict any use of the information to criminally investigate or prosecute any alcohol or drug abuse patient.[facility]In the event this information is protected by the Federal Confidentiality of Alcohol and Drug Abuse Patient Records regulations: The Federal rules restrict any use of the information to criminally investigate or prosecute any alcohol or drug abuse patient.[facility]In the event this information is protected by the Federal Confidentiality of Alcohol and Drug Abuse Patient Records regulations: The Federal rules restrict any use of the information to criminally investigate or prosecute any alcohol or drug abuse patient.[facility]In the event this information is protected by the Federal Confidentiality of Alcohol and Drug Abuse Patient Records regulations: The Federal rules restrict any use of the information to criminally investigate or prosecute any alcohol or drug abuse patient.[facility]In the event this information is protected by the Federal Confidentiality of Alcohol and Drug Abuse Patient Records regulations: The Federal rules restrict any use of the information to criminally investigate or prosecute any alcohol or drug abuse patient.[facility]In the event this information is protected by the Federal Confidentiality of Alcohol and Drug Abuse Patient Records regulations: The Federal rules restrict any use of the information to criminally investigate or prosecute any alcohol or drug abuse patient.[facility]In the event this information is protected by the Federal Confidentiality of Alcohol and Drug Abuse Patient Records regulations: The Federal rules restrict any use of the information to criminally investigate or prosecute any alcohol or drug abuse patient.[facility]In the event this information is protected by the Federal Confidentiality of Alcohol and Drug Abuse Patient Records regulations: The Federal rules restrict any use of the information to criminally investigate or prosecute any alcohol or drug abuse patient.[facility]In the event this information is protected by the Federal Confidentiality of Alcohol and Drug Abuse Patient Records regulations: The Federal rules restrict any use of the information to criminally investigate or prosecute any alcohol or drug abuse patient.[facility]In the event this information is protected by the Federal Confidentiality of Alcohol and Drug Abuse Patient Records regulations: The Federal rules restrict any use of the information to criminally investigate or prosecute any alcohol or drug abuse patient.[facility]In the event this information is protected by the Federal Confidentiality of Alcohol and Drug Abuse Patient Records regulations: The Federal rules restrict any use of the information to criminally investigate or prosecute any alcohol or drug abuse patient.[facility]In the event this information is protected by the Federal Confidentiality of Alcohol and Drug Abuse Patient Records regulations: The Federal rules restrict any use of the information to criminally investigate or prosecute any alcohol or drug abuse patient.[facility]In the event this information is protected by the Federal Confidentiality of Alcohol and Drug Abuse Patient Records regulations: The Federal rules restrict any use of the information to criminally investigate or prosecute any alcohol or drug abuse patient.[facility]In the event this information is protected by the Federal Confidentiality of Alcohol and Drug Abuse Patient Records regulations: The Federal rules restrict any use of the information to criminally investigate or prosecute any alcohol or drug abuse patient.[facility]In the event this information is protected by the Federal Confidentiality of Alcohol and Drug Abuse Patient Records regulations: The Federal rules restrict any use of the information to criminally investigate or prosecute any alcohol or drug abuse patient.[facility]In the event this information is protected by the Federal Confidentiality of Alcohol and Drug Abuse Patient Records regulations: The Federal rules restrict any use of the information to criminally investigate or prosecute any alcohol or drug abuse patient.[facility]In the event this information is protected by the Federal Confidentiality of Alcohol and Drug Abuse Patient Records regulations: The Federal rules restrict any use of the information to criminally investigate or prosecute any alcohol or drug abuse patient.[facility]In the event this information is protected by the Federal Confidentiality of Alcohol and Drug Abuse Patient Records regulations: The Federal rules restrict any use of the information to criminally investigate or prosecute any alcohol or drug abuse patient.[facility]In the event this information is protected by the Federal Confidentiality of Alcohol and Drug Abuse Patient Records regulations: The Federal rules restrict any use of the information to criminally investigate or prosecute any alcohol or drug abuse patient.[facility]In the event this information is protected by the Federal Confidentiality of Alcohol and Drug Abuse Patient Records regulations: The Federal rules restrict any use of the information to criminally investigate or prosecute any alcohol or drug abuse patient.[facility]In the event this information is protected by the Federal Confidentiality of Alcohol and Drug Abuse Patient Records regulations: The Federal rules restrict any use of the information to criminally investigate or prosecute any alcohol or drug abuse patient.[facility]In the event this information is protected by the Federal Confidentiality of Alcohol and Drug Abuse Patient Records regulations: The Federal rules restrict any use of the information to criminally investigate or prosecute any alcohol or drug abuse patient.[facility]In the event this information is protected by the Federal Confidentiality of Alcohol and Drug Abuse Patient Records regulations: The Federal rules restrict any use of the information to criminally investigate or prosecute any alcohol or drug abuse patient.[facility]In the event this information is protected by the Federal Confidentiality of Alcohol and Drug Abuse Patient Records regulations: The Federal rules restrict any use of the information to criminally investigate or prosecute any alcohol or drug abuse patient.[facility]In the event this information is protected by the Federal Confidentiality of Alcohol and Drug Abuse Patient Records regulations: The Federal rules restrict any use of the information to criminally investigate or prosecute any alcohol or drug abuse patient.[facility]In the event this information is protected by the Federal Confidentiality of Alcohol and Drug Abuse Patient Records regulations: The Federal rules restrict any use of the information to criminally investigate or prosecute any alcohol or drug abuse patient.[facility]In the event this information is protected by the Federal Confidentiality of Alcohol and Drug Abuse Patient Records regulations: The Federal rules restrict any use of the information to criminally investigate or prosecute any alcohol or drug abuse patient.[facility]In the event this information is protected by the Federal Confidentiality of Alcohol and Drug Abuse Patient Records regulations: The Federal rules restrict any use of the information to criminally investigate or prosecute any alcohol or drug abuse patient.[facility]In the event this information is protected by the Federal Confidentiality of Alcohol and Drug Abuse Patient Records regulations: The Federal rules restrict any use of the information to criminally investigate or prosecute any alcohol or drug abuse patient.[facility]In the event this information is protected by the Federal Confidentiality of Alcohol and Drug Abuse Patient Records regulations: The Federal rules restrict any use of the information to criminally investigate or prosecute any alcohol or drug abuse patient.[facility]In the event this information is protected by the Federal Confidentiality of Alcohol and Drug Abuse Patient Records regulations: The Federal rules restrict any use of the information to criminally investigate or prosecute any alcohol or drug abuse patient.[facility]In the event this information is protected by the Federal Confidentiality of Alcohol and Drug Abuse Patient Records regulations: The Federal rules restrict any use of the information to criminally investigate or prosecute any alcohol or drug abuse patient.[facility]In the event this information is protected by the Federal Confidentiality of Alcohol and Drug Abuse Patient Records regulations: The Federal rules restrict any use of the information to criminally investigate or prosecute any alcohol or drug abuse patient.[facility]In the event this information is protected by the Federal Confidentiality of Alcohol and Drug Abuse Patient Records regulations: The Federal rules restrict any use of the information to criminally investigate or prosecute any alcohol or drug abuse patient.[facility]In the event this information is protected by the Federal Confidentiality of Alcohol and Drug Abuse Patient Records regulations: The Federal rules restrict any use of the information to criminally investigate or prosecute any alcohol or drug abuse patient.[facility]In the event this information is protected by the Federal Confidentiality of Alcohol and Drug Abuse Patient Records regulations: The Federal rules restrict any use of the information to criminally investigate or prosecute any alcohol or drug abuse patient.[facility]In the event this information is protected by the Federal Confidentiality of Alcohol and Drug Abuse Patient Records regulations: The Federal rules restrict any use of the information to criminally investigate or prosecute any alcohol or drug abuse patient.[facility]In the event this information is protected by the Federal Confidentiality of Alcohol and Drug Abuse Patient Records regulations: The Federal rules restrict any use of the information to criminally investigate or prosecute any alcohol or drug abuse patient.[facility]In the event this information is protected by the Federal Confidentiality of Alcohol and Drug Abuse Patient Records regulations: The Federal rules restrict any use of the information to criminally investigate or prosecute any alcohol or drug abuse patient.[facility]In the event this information is protected by the Federal Confidentiality of Alcohol and Drug Abuse Patient Records regulations: The Federal rules restrict any use of the information to criminally investigate or prosecute any alcohol or drug abuse patient.[facility]In the event this information is protected by the Federal Confidentiality of Alcohol and Drug Abuse Patient Records regulations: The Federal rules restrict any use of the information to criminally investigate or prosecute any alcohol or drug abuse patient.[facility]In the event this information is protected by the Federal Confidentiality of Alcohol and Drug Abuse Patient Records regulations: The Federal rules restrict any use of the information to criminally investigate or prosecute any alcohol or drug abuse patient.[facility]In the event this information is protected by the Federal Confidentiality of Alcohol and Drug Abuse Patient Records regulations: The Federal rules restrict any use of the information to criminally investigate or prosecute any alcohol or drug abuse patient.[facility]In the event this information is protected by the Federal Confidentiality of Alcohol and Drug Abuse Patient Records regulations: The Federal rules restrict any use of the information to criminally investigate or prosecute any alcohol or drug abuse patient.[facility]In the event this information is protected by the Federal Confidentiality of Alcohol and Drug Abuse Patient Records regulations: The Federal rules restrict any use of the information to criminally investigate or prosecute any alcohol or drug abuse patient.[facility]In the event this information is protected by the Federal Confidentiality of Alcohol and Drug Abuse Patient Records regulations: The Federal rules restrict any use of the information to criminally investigate or prosecute any alcohol or drug abuse patient.[facility]In the event this information is protected by the Federal Confidentiality of Alcohol and Drug Abuse Patient Records regulations: The Federal rules restrict any use of the information to criminally investigate or prosecute any alcohol or drug abuse patient.[facility]In the event this information is protected by the Federal Confidentiality of Alcohol and Drug Abuse Patient Records regulations: The Federal rules restrict any use of the information to criminally investigate or prosecute any alcohol or drug abuse patient.[facility]In the event this information is protected by the Federal Confidentiality of Alcohol and Drug Abuse Patient Records regulations: The Federal rules restrict any use of the information to criminally investigate or prosecute any alcohol or drug abuse patient.[facility]In the event this information is protected by the Federal Confidentiality of Alcohol and Drug Abuse Patient Records regulations: The Federal rules restrict any use of the information to criminally investigate or prosecute any alcohol or drug abuse patient.[facility]In the event this information is protected by the Federal Confidentiality of Alcohol and Drug Abuse Patient Records regulations: The Federal rules restrict any use of the information to criminally investigate or prosecute any alcohol or drug abuse patient.[facility]In the event this information is protected by the Federal Confidentiality of Alcohol and Drug Abuse Patient Records regulations: The Federal rules restrict any use of the information to criminally investigate or prosecute any alcohol or drug abuse patient.[facility]In the event this information is protected by the Federal Confidentiality of Alcohol and Drug Abuse Patient Records regulations: The Federal rules restrict any use of the information to criminally investigate or prosecute any alcohol or drug abuse patient.[facility]In the event this information is protected by the Federal Confidentiality of Alcohol and Drug Abuse Patient Records regulations: The Federal rules restrict any use of the information to criminally investigate or prosecute any alcohol or drug abuse patient.[facility]In the event this information is protected by the Federal Confidentiality of Alcohol and Drug Abuse Patient Records regulations: The Federal rules restrict any use of the information to criminally investigate or prosecute any alcohol or drug abuse patient.[facility]In the event this information is protected by the Federal Confidentiality of Alcohol and Drug Abuse Patient Records regulations: The Federal rules restrict any use of the information to criminally investigate or prosecute any alcohol or drug abuse patient.[facility]In the event this information is protected by the Federal Confidentiality of Alcohol and Drug Abuse Patient Records regulations: The Federal rules restrict any use of the information to criminally investigate or prosecute any alcohol or drug abuse patient.[facility]In the event this information is protected by the Federal Confidentiality of Alcohol and Drug Abuse Patient Records regulations: The Federal rules restrict any use of the information to criminally investigate or prosecute any alcohol or drug abuse patient.[facility]In the event this information is protected by the Federal Confidentiality of Alcohol and Drug Abuse Patient Records regulations: The Federal rules restrict any use of the information to criminally investigate or prosecute any alcohol or drug abuse patient.[facility]In the event this information is protected by the Federal Confidentiality of Alcohol and Drug Abuse Patient Records regulations: The Federal rules restrict any use of the information to criminally investigate or prosecute any alcohol or drug abuse patient.[facility]In the event this information is protected by the Federal Confidentiality of Alcohol and Drug Abuse Patient Records regulations: The Federal rules restrict any use of the information to criminally investigate or prosecute any alcohol or drug abuse patient.[facility]In the event this information is protected by the Federal Confidentiality of Alcohol and Drug Abuse Patient Records regulations: The Federal rules restrict any use of the information to criminally investigate or prosecute any alcohol or drug abuse patient.[facility]In the event this information is protected by the Federal Confidentiality of Alcohol and Drug Abuse Patient Records regulations: The Federal rules restrict any use of the information to criminally investigate or prosecute any alcohol or drug abuse patient.[facility]In the event this information is protected by the Federal Confidentiality of Alcohol and Drug Abuse Patient Records regulations: The Federal rules restrict any use of the information to criminally investigate or prosecute any alcohol or drug abuse patient.[facility]In the event this information is protected by the Federal Confidentiality of Alcohol and Drug Abuse Patient Records regulations: The Federal rules restrict any use of the information to criminally investigate or prosecute any alcohol or drug abuse patient.[facility]In the event this information is protected by the Federal Confidentiality of Alcohol and Drug Abuse Patient Records regulations: The Federal rules restrict any use of the information to criminally investigate or prosecute any alcohol or drug abuse patient.[facility]In the event this information is protected by the Federal Confidentiality of Alcohol and Drug Abuse Patient Records regulations: The Federal rules restrict any use of the information to criminally investigate or prosecute any alcohol or drug abuse patient.[facility]In the event this information is protected by the Federal Confidentiality of Alcohol and Drug Abuse Patient Records regulations: The Federal rules restrict any use of the information to criminally investigate or prosecute any alcohol or drug abuse patient.[facility]In the event this information is protected by the Federal Confidentiality of Alcohol and Drug Abuse Patient Records regulations: The Federal rules restrict any use of the information to criminally investigate or prosecute any alcohol or drug abuse patient.[facility]In the event this information is protected by the Federal Confidentiality of Alcohol and Drug Abuse Patient Records regulations: The Federal rules restrict any use of the information to criminally investigate or prosecute any alcohol or drug abuse patient.[facility]In the event this information is protected by the Federal Confidentiality of Alcohol and Drug Abuse Patient Records regulations: The Federal rules restrict any use of the information to criminally investigate or prosecute any alcohol or drug abuse patient.[facility]In the event this information is protected by the Federal Confidentiality of Alcohol and Drug Abuse Patient Records regulations: The Federal rules restrict any use of the information to criminally investigate or prosecute any alcohol or drug abuse patient.[facility]In the event this information is protected by the Federal Confidentiality of Alcohol and Drug Abuse Patient Records regulations: The Federal rules restrict any use of the information to criminally investigate or prosecute any alcohol or drug abuse patient.[facility]In the event this information is protected by the Federal Confidentiality of Alcohol and Drug Abuse Patient Records regulations: The Federal rules restrict any use of the information to criminally investigate or prosecute any alcohol or drug abuse patient.[facility]In the event this information is protected by the Federal Confidentiality of Alcohol and Drug Abuse Patient Records regulations: The Federal rules restrict any use of the information to criminally investigate or prosecute any alcohol or drug abuse patient.[facility]In the event this information is protected by the Federal Confidentiality of Alcohol and Drug Abuse Patient Records regulations: The Federal rules restrict any use of the information to criminally investigate or prosecute any alcohol or drug abuse patient.[facility] WestIn the event this information is protected by the Federal Confidentiality of Alcohol and Drug Abuse Patient Records regulations: The Federal rules restrict any use of the information to criminally investigate or prosecute any alcohol or drug abuse patient.[facility] WestIn the event this information is protected by the Federal Confidentiality of Alcohol and Drug Abuse Patient Records regulations: The Federal rules restrict any use of the information to criminally investigate or prosecute any alcohol or drug abuse patient.[facility] WestIn the event this information is protected by the Federal Confidentiality of Alcohol and Drug Abuse Patient Records regulations: The Federal rules restrict any use of the information to criminally investigate or prosecute any alcohol or drug abuse patient.[facility] WestIn the event this information is protected by the Federal Confidentiality of Alcohol and Drug Abuse Patient Records regulations: The Federal rules restrict any use of the information to criminally investigate or prosecute any alcohol or drug abuse patient.[facility] WestIn the event this information is protected by the Federal Confidentiality of Alcohol and Drug Abuse Patient Records regulations: The Federal rules restrict any use of the information to criminally investigate or prosecute any alcohol or drug abuse patient.[facility] WestIn the event this information is protected by the Federal Confidentiality of Alcohol and Drug Abuse Patient Records regulations: The Federal rules restrict any use of the information to criminally investigate or prosecute any alcohol or drug abuse patient.[facility] WestIn the event this information is protected by the Federal Confidentiality of Alcohol and Drug Abuse Patient Records regulations: The Federal rules restrict any use of the information to criminally investigate or prosecute any alcohol or drug abuse patient.[facility] WestIn the event this information is protected by the Federal Confidentiality of Alcohol and Drug Abuse Patient Records regulations: The Federal rules restrict any use of the information to criminally investigate or prosecute any alcohol or drug abuse patient.[facility] WestIn the event this information is protected by the Federal Confidentiality of Alcohol and Drug Abuse Patient Records regulations: The Federal rules restrict any use of the information to criminally investigate or prosecute any alcohol or drug abuse patient.[facility] WestIn the event this information is protected by the Federal Confidentiality of Alcohol and Drug Abuse Patient Records regulations: The Federal rules restrict any use of the information to criminally investigate or prosecute any alcohol or drug abuse patient.[facility] WestIn the event this information is protected by the Federal Confidentiality of Alcohol and Drug Abuse Patient Records regulations: The Federal rules restrict any use of the information to criminally investigate or prosecute any alcohol or drug abuse patient.[facility] WestIn the event this information is protected by the Federal Confidentiality of Alcohol and Drug Abuse Patient Records regulations: The Federal rules restrict any use of the information to criminally investigate or prosecute any alcohol or drug abuse patient.[facility] WestIn the event this information is protected by the Federal Confidentiality of Alcohol and Drug Abuse Patient Records regulations: The Federal rules restrict any use of the information to criminally investigate or prosecute any alcohol or drug abuse patient.[facility] WestIn the event this information is protected by the Federal Confidentiality of Alcohol and Drug Abuse Patient Records regulations: The Federal rules restrict any use of the information to criminally investigate or prosecute any alcohol or drug abuse patient.[facility] WestIn the event this information is protected by the Federal Confidentiality of Alcohol and Drug Abuse Patient Records regulations: The Federal rules restrict any use of the information to criminally investigate or prosecute any alcohol or drug abuse patient.[facility] WestIn the event this information is protected by the Federal Confidentiality of Alcohol and Drug Abuse Patient Records regulations: The Federal rules restrict any use of the information to criminally investigate or prosecute any alcohol or drug abuse patient.[facility] WestIn the event this information is protected by the Federal Confidentiality of Alcohol and Drug Abuse Patient Records regulations: The Federal rules restrict any use of the information to criminally investigate or prosecute any alcohol or drug abuse patient.[facility] WestIn the event this information is protected by the Federal Confidentiality of Alcohol and Drug Abuse Patient Records regulations: The Federal rules restrict any use of the information to criminally investigate or prosecute any alcohol or drug abuse patient.[facility] WestIn the event this information is protected by the Federal Confidentiality of Alcohol and Drug Abuse Patient Records regulations: The Federal rules restrict any use of the information to criminally investigate or prosecute any alcohol or drug abuse patient.[facility] WestIn the event this information is protected by the Federal Confidentiality of Alcohol and Drug Abuse Patient Records regulations: The Federal rules restrict any use of the information to criminally investigate or prosecute any alcohol or drug abuse patient.[facility] WestIn the event this information is protected by the Federal Confidentiality of Alcohol and Drug Abuse Patient Records regulations: The Federal rules restrict any use of the information to criminally investigate or prosecute any alcohol or drug abuse patient.[facility] WestIn the event this information is protected by the Federal Confidentiality of Alcohol and Drug Abuse Patient Records regulations: The Federal rules restrict any use of the information to criminally investigate or prosecute any alcohol or drug abuse patient.[facility] WestIn the event this information is protected by the Federal Confidentiality of Alcohol and Drug Abuse Patient Records regulations: The Federal rules restrict any use of the information to criminally investigate or prosecute any alcohol or drug abuse patient.[facility] WestIn the event this information is protected by the Federal Confidentiality of Alcohol and Drug Abuse Patient Records regulations: The Federal rules restrict any use of the information to criminally investigate or prosecute any alcohol or drug abuse patient.[facility] WestIn the event this information is protected by the Federal Confidentiality of Alcohol and Drug Abuse Patient Records regulations: The Federal rules restrict any use of the information to criminally investigate or prosecute any alcohol or drug abuse patient.[facility] WestIn the event this information is protected by the Federal Confidentiality of Alcohol and Drug Abuse Patient Records regulations: The Federal rules restrict any use of the information to criminally investigate or prosecute any alcohol or drug abuse patient.[facility] WestIn the event this information is protected by the Federal Confidentiality of Alcohol and Drug Abuse Patient Records regulations: The Federal rules restrict any use of the information to criminally investigate or prosecute any alcohol or drug abuse patient.[facility] WestIn the event this information is protected by the Federal Confidentiality of Alcohol and Drug Abuse Patient Records regulations: The Federal rules restrict any use of the information to criminally investigate or prosecute any alcohol or drug abuse patient.[facility] WestIn the event this information is protected by the Federal Confidentiality of Alcohol and Drug Abuse Patient Records regulations: The Federal rules restrict any use of the information to criminally investigate or prosecute any alcohol or drug abuse patient.[facility] WestIn the event this information is protected by the Federal Confidentiality of Alcohol and Drug Abuse Patient Records regulations: The Federal rules restrict any use of the information to criminally investigate or prosecute any alcohol or drug abuse patient.[facility] WestIn the event this information is protected by the Federal Confidentiality of Alcohol and Drug Abuse Patient Records regulations: The Federal rules restrict any use of the information to criminally investigate or prosecute any alcohol or drug abuse patient.[facility] WestIn the event this information is protected by the Federal Confidentiality of Alcohol and Drug Abuse Patient Records regulations: The Federal rules restrict any use of the information to criminally investigate or prosecute any alcohol or drug abuse patient.[facility] WestIn the event this information is protected by the Federal Confidentiality of Alcohol and Drug Abuse Patient Records regulations: The Federal rules restrict any use of the information to criminally investigate or prosecute any alcohol or drug abuse patient.[facility] Reason for Visit (unrecogniz ed section and content) Reason Comments Anticoagulation Reason Onset Date Comments Community Monitoring Outreach 08/31/2021 Te lephonic Follow Up Reason Comments Patient Update Reason Comments Anticoag order Reason Onset Date Comments Community Monitoring Outreach 09/27/2021 Te lephonic Follow Up Reason Comments 6 Month Exam Reason Comments Results Reason Onset Date Comments Community Monitoring Outreach 10/11/2021 Te lephonic Follow Up Reason Onset Date Comments Refill Request 10/11/2021 Reason Onset Date Comments Community Monitoring Outreach 10/25/2021 Te lephonic Follow Up Reason Comments INR draw Reason Onset Date Comments Community Monitoring Outreach 11/08/2021 Te lephonic Follow Up Reason Onset Date Comments Community Monitoring Outreach 11/09/2021 Te lephonic Follow Up Reason Onset Date Comments Refill Request 12/20/2021 Reason Onset Date Comments Community Monitoring Outreach 12/20/2021 Te lephonic Follow Up Reason Onset Date Comments Community Monitoring Outreach 01/05/2022 Te lephonic Follow Up Reason Comments Recheck 3 month follow up; I NR done today; Reason Comments Home Care Confirmation Call Reason Onset Date Comments Transition Of Care 02/08/2022 TCM initial o utreach d/c 02/06 Reason Comments Coumadin Dosage Reason Onset Date Comments Community Monitoring Outreach 02/09/2022 CD M Telephonic Reason Comments Patient Question Reason Comments Home Care SOC/severe med inter actions Reason Comments Erroneous encounter-disregard Specialty Diagnoses / Procedures Referred By Contac t Referred To Contact HOME CARE SERVICES IND Home Care [address] [place] [id number] Referral ID Status Reason Start Date Expiration Date Visits Re quested Visits Authorized [id number] 1 1 Reason Onset Date Comments Community Monitoring Outreach 02/22/2022 CD M Telephonic Reason Comments Home Care Missed PT visit Reason Comments Orders Reason Onset Date Comments Community Monitoring Outreach 03/08/2022 CD M Telephonic Reason Comments Home Care Reason Onset Date Comments Refill Request 03/08/2022 Reason Comments Orders protime Reason Comments Recheck 2 week follow up Reason Onset Date Comments Community Monitoring Outreach 03/22/2022 CD M Telephonic Reason Onset Date Comments Community Monitoring Outreach 03/24/2022 CD M Telephonic Reason Onset Date Comments Community Monitoring Outreach 04/05/2022 CD M Telephonic Reason Onset Date Comments Community Monitoring Outreach 04/19/2022 CD M Follow Up Reason Comments Follow Up Reason Onset Date Comments Community Monitoring Outreach 04/26/2022 CD M Follow Up Reason Comments left rib pain Fell 10 days ago Reason Onset Date Comments Community Monitoring Outreach 05/18/2022 CD M Follow Up Reason Comments Results Appointment Reason Onset Date Comments Community Monitoring Outreach 06/21/2022 CD M Reason Comments Pain Back , shoulders goi ng toward hips x 1.5 weeks Reason Comments Medication Problem Reason Comments Home Care Need for further pt/ inr orders Reason Comments Back Pain Some improvement. Cruz s to be careful with movement. Using Miacalcin and fitted for back brace will be a couple weeks before it is here. MRI is scheduled. Reason Comments Results - Mri Reason Onset Date Comments [facility] 08/29/2022 Telephonic outre ach Reason Comments Follow Up 4 week follow up Reason Comments Back Pain Follow up. Compressi on fracture in back. Swelling Distention in abdome n X 2 months. Hears gurgling noises in stomach. Refers to it sounding like water. Denies nausea and vomiting. Gets short of breath when swelling gets severe enough. Denies edema to feet, ankles or legs. Denies chest pain Reason Onset Date Comments [facility] 09/22/2022 Telephonic outre ach Reason Comments Patient Request Reason Comments Orders Reason Comments Abdominal Pain Follow up Reason Onset Date Comments Refill Request 01/04/2023 Reason Comments blisters/rash possible shingles Reason Comments Rash L arm and back of ne ck x 3 days Reason Onset Date Comments CD 01/16/2023 Routine outreach Reason Comments Shingles Reason Comments INR direction Reason Comments Patient Question INR/Coumadin Reason Onset Date Comments [facility] 02/14/2023 Routine outreach Reason Onset Date Comments Refill Request 02/22/2023 Reason Comments Anticoagulation Reason Onset Date Comments [facility] 03/15/2023 Routine outreach Reason Comments Radiology NM Specialty Diagnoses / Procedures Referred By Contac t Referred To Contact MOLECULAR & FUNCTIONAL IMAGING Diagnoses Elevated alkaline phosphatase level Procedures NM BONE WHOLE BODY BONE &/JOINT IMAGING WHOLE BODY Myah Mehta PA-C [address] [place] [address] Molecular & Functional Imaging [address] [place], [place] [id number] Referral ID Status Reason Start Date Expiration Date V isits Requested Visits Authorized [id number] Closed Auto-Generate d Referral 10/05/2022 11/04/2023 1 1 Reason Comments Radiology US Specialty Diagnoses / Procedures Referred By Contac t Referred To Contact US IMAGING Diagnoses Renal mass Liver mass Procedures US ABDOMEN COMPLETE US ABDOMINAL REAL TIME W/IMAGE DOCUMENTATION Wes Bonilla MD [address] [place] [id number] [place] [address] Referral ID Status Reason Start Date Expiration Date V isits Requested Visits Authorized [id number] Closed Auto-Generate d Referral 09/01/2022 10/01/2023 1 1 Specialty Diagnoses / Procedures Referred By Contac t Referred To Contact MR IMAGING Diagnoses Pathological fracture, other site, initial encounter for fracture Procedures MRI THORACIC SPINE WO IVCON MRI SPINAL CANAL THORACIC W/O CONTRAST MATRL Myah Mehta PA-C [address] [place] [address] [place] [address] Referral ID Status Reason Start Date Expiration Date V isits Requested Visits Authorized [id number] Closed Auto-Generate d Referral 07/21/2022 08/20/2023 1 1 Specialty Diagnoses / Procedures Referred By Contac t Referred To Contact US IMAGING Diagnoses Thyroid nodule Procedures US THYROID/PARATHYROID US SOFT TISSUE HEAD & NECK REAL TIME IMGE DOCM Wes Bonilla MD [address] [place] [address] [place] [address] Referral ID Status Reason Start Date Expiration Date V isits Requested Visits Authorized [id number] Closed Auto-Generate d Referral 04/19/2022 05/19/2023 1 1 Reason Onset Date Comments CDM 04/11/2023 Routine outreach Reason Comments Results Critical INR Reason Comments Appointment Rescheduled Reason Onset Date Comments CD 05/25/2023 Routine outreach Care Teams (unrecognized sec tion and content) Card Tape Converter Operator Relationship Specialty Start Date End Date Wes Bonilla MD [address] [place], [place] [address] PCP - General Family Practice 10/10/17 Elisabeth Canchola, circular ripsaw operatorAccounting Reconciliation Clerk 02/11/21 Junaid Arriaga [address] [facility] [employer] [address] [address] Physician Cardiology 05/04/21 Card Tape Converter Operator Relationship Specialty Start Date End Date Wes Bonilla MD [address] [place], [place] [address] PCP - General Family Practice 10/10/17 Elisabeth Canchola, circular ripsaw operatorAccounting Reconciliation Clerk 02/11/21 Junaid Arriaga [address] [employer] [address] [address] Physician Cardiology 05/04/21 Card Tape Converter Operator Relationship Specialty Start Date End Date Wes Bonilla MD [address] [place], [place] [id number] PCP - General Family Practice 10/10/17 Elisabeth Canchola, circular ripsaw operatorAccounting Reconciliation Clerk 02/11/21 Junaid Arriaga [address] [employer] [address] [address] Physician Cardiology 05/04/21 Card Tape Converter Operator Relationship Specialty Start Date End Date Wes Bonilla MD [address] [place], [place] [address] PCP - General Family Practice 10/10/17 Elisabeth Canchola, circular ripsaw operatorAccounting Reconciliation Clerk 02/11/21 Junaid Arriaga [address] [phone] Physician Cardiology 05/04/21 Nikunj Jose [address] [place] [address] Physician Urology 09/13/21 Card Tape Converter Operator Relationship Specialty Start Date End Date Wes Bonilla MD [address] [facility] [place] [address] PCP - General Family Practice 10/10/17 Elisabeth Canchola, circular ripsaw operatorAccounting Reconciliation Clerk 02/11/21 Junaid Arriaga [address] [place] [address] Physician Cardiology 05/04/21 [facility] Jose [address] [place] [address] Physician Urology 09/13/21 Card Tape Converter Operator Relationship Specialty Start Date End Date Wes Bonilla MD [address] [facility] [place] [address] PCP - General Family Practice 10/10/17 Elisabeth Canchola, circular ripsaw operatorAccounting Reconciliation Clerk 02/11/21 Junaid Arriaga [address] [place] [address] Physician Cardiology 05/04/21 [facility] [address] [place] [address] Physician Urology 09/13/21 Card Tape Converter Operator Relationship Specialty Start Date End Date Wes Bonilla MD [address] [facility] [place] [address] PCP - General Family Practice 10/10/17 Elisabeth Canchola, circular ripsaw operatorAccounting Reconciliation Clerk 02/11/21 Junaid Arriaga [address] [address] Physician Cardiology 05/04/21 Nikunj [facility] [address] [address] Physician Urology 09/13/21 Card Tape Converter Operator Relationship Specialty Start Date End Date Wes Bonilla MD [address] [facility] [place] [address] PCP - General Family Practice 10/10/17 Elisabeth Canchola, circular ripsaw operatorAccounting Reconciliation Clerk 02/11/21 Junaid Arriaga [address] [address] Physician Cardiology 05/04/21 [facility] [address] [address] Physician Urology 09/13/21 Card Tape Converter Operator Relationship Specialty Start Date End Date Wes Bonilla MD [address] [place] [address] PCP - General Family Practice 10/10/17 Elisabeth Canchola circular ripsaw operatorAccounting Reconciliation Clerk 02/11/21 Junaid Arriaga [address] [address] Physician Cardiology 05/04/21 [facility] [address] [place] [address] Physician Urology 09/13/21 Card Tape Converter Operator Relationship Specialty Start Date End Date Wes Bonilla MD [address] [place] [address] PCP - General Family Practice 10/10/17 Elisabeth Cacnhola, RN [address] [facility] [place] [address] Accounting Reconciliation Clerk 02/11/21 Junaid Arriaga [address] [address] Physician Cardiology 05/04/21 Santos Calvin [address] [address] Physician Urology 09/13/21 Card Tape Converter Operator Relationship Specialty Start Date End Date Wes Bonilla MD [address] [place] [address] PCP - General Family Practice 10/10/17 Elisabeth Canchola RN [address] [place] [address] Accounting Reconciliation Clerk 02/11/21 Junaid Arriaga [address] [address] Physician Cardiology 05/04/21 Santos Calvin [address] [address] Physician Urology 09/13/21 Card Tape Converter Operator Relationship Specialty Start Date End Date Wes Bonilla MD [address] [place] [address] PCP - General Family Practice 10/10/17 Elisabeth Canchola RN [address] [place] [address] Accounting Reconciliation Clerk 02/11/21 Junaid Arriaga 1761 [facility] [address] [address] Physician Cardiology 05/04/[address] [address] Physician Urology 09/13/21 Card Tape Converter Operator Relationship Specialty Start Date End Date Wes Bonilla MD [address] [facility] [place] [address] PCP - General Family Practice 10/10/17 Elisabeth Canchola RN [address] [place], [place] [id number] Accounting Reconciliation Clerk 02/11/21 Junaid Arriaga [address] [place] [address] Physician Cardiology 05/04/[address] [place] [address] Physician Urology 09/13/21 Card Tape Converter Operator Relationship Specialty Start Date End Date Wes Bonilla MD [address] [facility] [place] [address] PCP - General Family Practice 10/10/17 Elisabeth Canchola RN [address] [place], [place] [id number] Accounting Reconciliation Clerk 02/11/21 Junaid Arriaga [address] [place] [address] Physician Cardiology 05/04/[address] [place] [address] Physician Urology 09/13/21 Flaquito Mariee [address] [place] [address] Byproducts Pump Operator Pulmonary Disease 10/25/21 Card Tape Converter Operator Relationship Specialty Start Date End Date Wes Bonilla MD [address] [facility] [place] [address] PCP - General Family Practice 10/10/17 Elisabeth Canchola RN [address] [place] [address] Accounting Reconciliation Clerk 02/11/21 Junaid Arriaga 176 [facility] [address] [place] [address] Physician Cardiology 05/04/21 Santos Calvin [address] [place] [address] Physician Urology 09/13/21 Flaquito Mariee 176 [facility] [place] [address] Byproducts Pump Operator Pulmonary Disease 10/25/21 Card Tape Converter Operator Relationship Specialty Start Date End Date Wes Bonilla MD [address] [facility] [place] [address] PCP - General Family Practice 10/10/17 Elisabeth Canchola RN [address] [place] [address] Accounting Reconciliation Clerk 02/11/21 Junaid Arriaga 176 [facility] [address] [place] [address] Physician Cardiology 05/04/21 Santos Calvin [address] [place] [address] Physician Urology 09/13/21 Flaquito Mariee 176 [facility] [address] Byproducts Pump Operator Pulmonary Disease 10/25/21 Card Tape Converter Operator Relationship Specialty Start Date End Date Wes Bonilla MD [address] [facility] [place] [address] PCP - General Family Practice 10/10/17 Elisabeth Canchola RN [address] [place] [address] Accounting Reconciliation Clerk 02/11/21 Junaid Arriaga 1761 [facility] [address] [place] [address] Physician Cardiology 05/04/21 Santos Calvin [address] [address] Physician Urology 09/13/21 Flaquito Mariee [address] [place] [address] Byproducts Pump Operator Pulmonary Disease 10/25/21 Card Tape Converter Operator Relationship Specialty Start Date End Date Wes Bonilla MD [address] [place] [address] PCP - General Family Practice 10/10/17 Elisabeth Canchola RN [address] [place] [address] Accounting Reconciliation Clerk 02/11/21 Junaid Arriaga [address] [address] Physician Cardiology 05/04/21 Santos Calvin 546 [address] [address] Physician Urology 09/13/21 Flaquito Mariee 176 [facility] [place] [address] Byproducts Pump Operator Pulmonary Disease 10/25/21 Card Tape Converter Operator Relationship Specialty Start Date End Date Wes Bonilla MD 1740 [facility] [place] [address] PCP - General Family Practice 10/10/17 Elisabeth Canchola RN 6000 [place] [address] Accounting Reconciliation Clerk 02/11/21 Junaid Arriaga [address] [place] [address] Physician Cardiology 05/04/21 Santos Calvin [address] [place] [address] Physician Urology 09/13/21 Flaquito Mariee 176 [place] [address] Byproducts Pump Operator Pulmonary Disease 10/25/21 Card Tape Converter Operator Relationship Specialty Start Date End Date Wes Bonilla MD 1740 [facility] [place] [address] PCP - General Family Practice 10/10/17 Elisabeth Canchola RN 6000 [place] [address] Accounting Reconciliation Clerk 02/11/21 Junaid Arriaga [address] [place] [address] Physician Cardiology 05/04/21 Santos Calvin [address] [place] [address] Physician Urology 09/13/21 [address]e [address] [place] [address] Byproducts Pump Operator Pulmonary Disease 10/25/21 Card Tape Converter Operator Relationship Specialty Start Date End Date Wes Bonilla MD 1740 [facility] [place] [address] PCP - General Family Practice 10/10/17 Elisabeth Canchola RN 6000 [place] [address] Accounting Reconciliation Clerk 02/11/21 Junaid Arriaga 176 [address] [place] [address] Physician Cardiology 05/04/21 Santos Calvin Miguel [address] [place] [address] Physician Urology 09/13/[address]e [address] [place] [address] Byproducts Pump Operator Pulmonary Disease 10/25/21 Wes Bonilla MD 1740 [facility] [place] [address] Home Care Physician Family Practice 02/03/22 Card Tape Converter Operator Relationship Specialty Start Date End Date Wes Bonilla MD [address] [facility] [place] [address] PCP - General Family Practice 10/10/17 Elisabeth Canchola RN 6000 [place] [address] Accounting Reconciliation Clerk 02/11/21 Junaid Arriaga 176 [address] [place] [address] Physician Cardiology 05/04/21 Santos Calvinuel [address] [place] [address] [place] [address] Physician Urology 09/13/21 Flaquito Mariee [address] [place] [address] Byproducts Pump Operator Pulmonary Disease 10/25/21 eWs Bonilla MD 1740 [facility] [place] [address] Home Care Physician Family Practice 02/03/22 Mera Langford MD 1 [place], [place] [id number] Referring 02/04/22 Erik Hassan, [place] [address] [employer], [place] [id number] Consulting Services Project Manager Post Acute Care 02/08/22 Card Tape Converter Operator Relationship Specialty Start Date End Date Wes Bonilla MD 1740 [place], [place] [address]81 PCP - General Family Practice 10/10/17 Elisabeth Canchola RN 6000 [place], [place] 9761731 Accounting Reconciliation Clerk 02/11/21 Junaid Arriaga 1761 [facility] 3A [place] [address] Physician Cardiology 05/04/21 Santos Calvin [address] [place] [address] [address] [place] [phone] Physician Urology 09/13/21 Flaquito Mariee 1761 [facility] [place] [address] Byproducts Pump Operator Pulmonary Disease 10/25/21 Wes Bonilla MD 1740 [place], [place] 272351 Home Care Physician Family Practice 02/03/22 Mera Langford MD 1 [place], [place] [phone] Referring 02/04/22 Erik Hassan, [place] [address] [employer], [place] [phone] Consulting Services Project Manager Post Acute Care 02/08/22 Card Tape Converter Operator Relationship Specialty Start Date End Date Wes Bonilla MD 1740 [place] [address] PCP - General Family Practice 10/10/17 Elisabeth Canchola RN 6000 [place] [address] Accounting Reconciliation Clerk 02/11/21 Junaid Arriaga 176 [address] [facility] [place] [address] Physician Cardiology 05/04/21 Santos Calvin 546 [facility] 210 [place] [address] Physician Urology 09/13/21 Flaquito Mariee 1761 [facility] [place] [address] Byproducts Pump Operator Pulmonary Disease 10/25/21 Wes Bonilla MD 1740 [place] [address] Home Care Physician Family Practice 02/03/22 Mera Langford MD 1 [place], [place] [phone] Referring 02/04/22 Erik Hassan RN [address] [place] [address] Consulting Services Project Manager Post Acute Care 02/08/22 Card Tape Converter Operator Relationship Specialty Start Date End Date Wes Bonilla MD 1740 [place] [address] PCP - General Family Practice 10/10/17 Elisabeth Canchola RN 6000 [place] [address] Accounting Reconciliation Clerk 02/11/21 Junaid Arriaga 176 [facility] [facility] [place] [address] Physician Cardiology 05/04/21 Santos Calvin [address] [phone] Physician Urology 09/13/21 Flaquito Mariee 176 [facility] [place] [address] Byproducts Pump Operator Pulmonary Disease 10/25/21 Wes Bonilla MD 7100 [place] [address] Home Care Physician Family Practice 02/03/22 Mera Langford MD 1 [place], [place] [phone] Referring 02/04/22 Erik Hassan RN [address] [place] [address] Consulting Services Project Manager Post Acute Care 02/08/22 Card Tape Converter Operator Relationship Specialty Start Date End Date Wes Bonilla MD 660 [place] [address] PCP - General Family Practice 10/10/17 Elisabeth Canchola RN 6000 [place] [address] Accounting Reconciliation Clerk 02/11/21 Junaid Arriaga 1761 [facility] [address] [place] [address] Physician Cardiology 05/04/21 Santos Calvin [address] [phone] Physician Urology 09/13/21 Flaquito Mariee 176 [facility] [place] [address] Byproducts Pump Operator Pulmonary Disease 10/25/21 Wes Bonilla MD 1740 [place], [place] 781871 Home Care Physician Family Practice 02/03/22 Mera Langford MD 1 [place], [place] [phone] Referring 02/04/22 Erik Hassan, [place] [address] [place], [place] [phone] Consulting Services Project Manager Post Acute Care 02/08/22 Card Tape Converter Operator Relationship Specialty Start Date End Date Wes Bonilla MD 1740 [place], [place] 0[address]291 PCP - General Family Practice 10/10/17 Elisabeth Canchola RN 6000 [place] [address] Accounting Reconciliation Clerk 02/11/21 Junaid Arriaga 1761 [facility] 3A [place] [address] Physician Cardiology 05/04/21 Santos Calvin [address] [place] [address] 210 [place] [address] Physician Urology 09/13/21 Flaquito Mariee 1761 [facility] [place] [address] Byproducts Pump Operator Pulmonary Disease 10/25/21 Wes Bonilla MD 1740 [place], [place] 909841 Home Care Physician Family Practice 02/03/22 Mera Langford MD 1 [place], [place] [phone] Referring 02/04/22 Erik Hassan RN [address] [place], [place] [phone] Consulting Services Project Manager Post Acute Care 02/08/22 Card Tape Converter Operator Relationship Specialty Start Date End Date Wes Bonilla MD 1740 [place] [address] PCP - General Family Practice 10/10/17 Elisabeth Canchola, RN 6000 [place], [place] 4106031 Accounting Reconciliation Clerk 02/11/21 [address]id Arriaga [address] [facility] 3A [place] [address] Physician Cardiology 05/04/21 Santos Calvin [address] [place] [address] 210 [place] [address] Physician Urology 09/13/21 Flaquito Mariee 1761 [facility] [place] [address] Byproducts Pump Operator Pulmonary Disease 10/25/21 Wes Bonilla MD 1740 [place] [address] Home Care Physician Family Practice 02/03/22 Mera Langford MD 1 [place], [place] [phone] Referring 02/04/22 Erik Hassan RN [address] [place] [address] Consulting Services Project Manager Post Acute Care 02/08/22 Card Tape Converter Operator Relationship Specialty Start Date End Date Wes Bonilla MD 1740 [place], [place] 194321 PCP - General Family Practice 10/10/17 Elisabeth Canchola, [place] 6000 [place], [place] 5685931 Accounting Reconciliation Clerk 02/11/21 Junaid Arriaga 176 [facility] [place] [address] Physician Cardiology 05/04/21 Santos Calvin [address] [phone] Physician Urology 09/13/21 Flaquito Mariee 176 [facility] [place] [address] Byproducts Pump Operator Pulmonary Disease 10/25/21 Wes Bonilla MD 1740 [place] [address] Home Care Physician Family Practice 02/03/22 Mera Langford MD 1 [place], [place] [phone] Referring 02/04/22 Erik Hassan RN [address] [place] [address] Consulting Services Project Manager Post Acute Care 02/08/22 Card Tape Converter Operator Relationship Specialty Start Date End Date Wes Bonilla MD 9300 [place] [address] PCP - General Family Practice 10/10/17 Elisabeth Canchola, RN 6000 [place] [address] Accounting Reconciliation Clerk 02/11/21 Junaid Arriaga 176 [facility] 3A [place] [address] Physician Cardiology 05/04/21 Santos Calvin [address] [phone] Physician Urology 09/13/21 Flaquito Mariee 1761 [facility] [place] [address] Byproducts Pump Operator Pulmonary Disease 10/25/21 Wes Bonilla MD 1740 [place], [place] 616561 Home Care Physician Family Practice 02/03/22 Mera Langford MD 1 [place], [place] [phone] Referring 02/04/22 Erik Hassan RN [address] [employer], [place] [phone] Consulting Services Project Manager Post Acute Care 02/08/22 Card Tape Converter Operator Relationship Specialty Start Date End Date Wes Bonilla MD 1740 [place] [address] PCP - General Family Practice 10/10/17 Elisabeth Canchola RN 6000 [place] [address] Accounting Reconciliation Clerk 02/11/21 Junaid Arriaga 1761 [facility] [address]A [place] [address] Physician Cardiology 05/04/21 Santos Calvin [address] [place] [address] Physician Urology 09/13/21 Flaquito Mariee 1761 [place] [address] Byproducts Pump Operator Pulmonary Disease 10/25/21 Wes Bonilla MD 1740 [place], [place] 28028691 Home Care Provider Family Practice 02/03/22 Mera Langford MD 1 [place], [place] [phone] Referring 02/04/22 Erik Hassan RN [address] [place], [place] [phone] Consulting Services Project Manager Post Acute Care 02/08/22 Card Tape Converter Operator Relationship Specialty Start Date End Date Wes Bonilla MD 1740 [place] [address] PCP - General Family Practice 10/10/17 Elisabeth Canchola, RN 6000 [place], [place] 8234131 Accounting Reconciliation Clerk 02/11/21 [address]id Arriaga [address] [facility] 3A [place] [address] Physician Cardiology 05/04/21 Santos Calvin [address] [place] [address] Physician Urology 09/13/21 Flaquito Mariee 1761 [facility] [place] [address] Byproducts Pump Operator Pulmonary Disease 10/25/21 Wes Bonilla MD 1740 [place] [address] Home Care Provider Family Practice 02/03/22 Mera Langford MD 1 [place], [place] [phone] Referring 02/04/22 Erik Hassan RN [address] [place] [address] Consulting Services Project Manager Post Acute Care 02/08/22 Card Tape Converter Operator Relationship Specialty Start Date End Date Wes Bonilla MD 1740 [place], [place] 661311 PCP - General Family Practice 10/10/17 Elisabeth Canchola, RN 6000 [place] [address] Accounting Reconciliation Clerk 02/11/21 Junaid Arriaga [address] [address] Physician Cardiology 05/04/21 Santos Calvin [address] [address] Physician Urology 09/13/21 Flaquito Mariee 176 [place] [address] Byproducts Pump Operator Pulmonary Disease 10/25/21 Wes Bonilla MD 1740 [place] [address] Home Care Provider Family Practice 02/03/22 Mera Langford MD 1 [place], [place] [phone] Referring 02/04/22 Erik Hassan, [place] [address] [place] [address] Consulting Services Project Manager Post Acute Care 02/08/22 Card Tape Converter Operator Relationship Specialty Start Date End Date Wes Bonilla MD 2140 [place], [place] 065091 PCP - General Family Medicine 10/10/17 Elisabeth Canchola RN 6000 [place] [address] Accounting Reconciliation Clerk 02/11/21 Junaid Arriaga [address] [address] Physician Cardiology 05/04/21 Santos Calvin [address] [address] Physician Urology 09/13/21 Flaquito Mariee 1761 [place] [address] Byproducts Pump Operator Pulmonary Disease 10/25/21 Wes Bonilla MD 1740 [place] [address] Home Care Provider Family Medicine 02/03/22 Mera Langford MD 1 [place], [place] [phone] Referring 02/04/22 Erik Hassan RN [address] [place] [address] Consulting Services Project Manager Post Acute Care 02/08/22 Card Tape Converter Operator Relationship Specialty Start Date End Date Wes Bonilla MD 174 [place], [place] 03902691 PCP - General Family Medicine 10/10/17 Elisabeth Canchola RN [address] [place] [address] Accounting Reconciliation Clerk 02/11/21 Junaid Arriaga 1761 [facility] 3A [place] [address] Physician Cardiology 05/04/21 Santos Calvin [address] [place] [address] 210 [place] [address] Physician Urology 09/13/21 Flaquito Mariee 1761 [facility] [place] [address] Byproducts Pump Operator Pulmonary Disease 10/25/21 Wes Bonilla MD 1740 [place] [address] Home Care Provider Family Medicine 02/03/22 Mera Langford MD 1 [place] [address] Referring 02/04/22 Erik Hassan RN [address] [employer], [place] [phone] Consulting Services Project Manager Post Acute Care 02/08/22 Card Tape Converter Operator Relationship Specialty Start Date End Date Wes Bonilla MD 1740 [place], [place] 997431 PCP - General Family Medicine 10/10/17 Elisabeth Canchola, [place] 6000 [place] [address] Accounting Reconciliation Clerk 02/11/21 Junaid Arriaga 176 [facility] [address]A [place] [address] Physician Cardiology 05/04/21 Santos Calvin [address] [place] [address] Physician Urology 09/13/21 Flaquito Mariee [address] [place] [address] Byproducts Pump Operator Pulmonary Disease 10/25/21 Wes Bonilla MD 1740 [place] [address] Home Care Provider Family Medicine 02/03/22 Mera Langford MD 1 [place] [address] Referring 02/04/22 Erik Hassan RN [address] [employer], [place] [phone] Consulting Services Project Manager Post Acute Care 02/08/22 Card Tape Converter Operator Relationship Specialty Start Date End Date Wes Bonilla MD 1740 [place], [place] 89089691 PCP - General Family Medicine 10/10/17 Elisabeth Canchola RN 6000 [place] [address] Accounting Reconciliation Clerk 02/11/21 Junaid Arriaga 1761 [address] [place] [address] Physician Cardiology 05/04/21 Santos Calvin [address] [address] Physician Urology 09/13/21 Flaquito Mariee 176 [facility] [address] [facility] [place] [address] Byproducts Pump Operator Pulmonary Disease 10/25/21 Wes Bonilla MD 5910 [place] [address] Home Care Provider Family Medicine 02/03/22 Mera Langford MD 1 [place], [place] [phone] Referring 02/04/22 Erik Hassan, [place] [address] [place] [address] Consulting Services Project Manager Post Acute Care 02/08/22 Card Tape Converter Operator Relationship Specialty Start Date End Date Wes Bonilla MD 6310 [place] [address] PCP - General Family Medicine 10/10/17 Elisabeth Canchola RN 6000 [place] [address] Accounting Reconciliation Clerk 02/11/21 Junaid Arriaga 176 [address]iela [address] [place] [address] Physician Cardiology 05/04/21 Santos Calvin [address] [address] Physician Urology 09/13/21 Flaquito Mariee 176 [facility] [place], [place] [id number] Byproducts Pump Operator Pulmonary Disease 10/25/21 Wes Bonilla MD 1740 [place], [place] 044011 Home Care Provider Family Medicine 02/03/22 Mear Langford MD 1 [place], [place] [phone] Referring 02/04/22 Erik Hassan, [place] [address] [employer], [place] [phone] Consulting Services Project Manager Post Acute Care 02/08/22 Card Tape Converter Operator Relationship Specialty Start Date End Date Wes Bonilla MD 174 [place], [place] [id number] PCP - General Family Medicine 10/10/17 Elisabeth Canchola RN 6000 [place], [place] 0818431 Accounting Reconciliation Clerk 02/11/21 Junaid Arriaga 1761 [facility] 3A [place] [address] Physician Cardiology 05/04/21 Santos Calvin [address] [place] [address] Physician Urology 09/13/21 Flaquito Mariee 1761 [facility] [place] [address] Byproducts Pump Operator Pulmonary Disease 10/25/21 Wes Bonilla MD 1740 [place], [place] 532[address]691 Home Care Provider Family Medicine 02/03/22 Mera Langford MD 1 [place], [place] [phone] Referring 02/04/22 Erik Hassan RN [address] [place] [phone] Consulting Services Project Manager Post Acute Care 02/08/22 Card Tape Converter Operator Relationship Specialty Start Date End Date Wes Bonilla MD 1740 [place] [address] PCP - General Family Medicine 10/10/17 Elisabeth Canchola RN 6000 [place], [place] 2577031 Accounting Reconciliation Clerk 02/11/21 Junaid Arriaga 1761 [facility] [address] [place] [address] Physician Cardiology 05/04/21 Santos Calvin [address] [place] [address] Physician Urology 09/13/21 Flaquito Mariee 1761 [facility] [place] [address] Byproducts Pump Operator Pulmonary Disease 10/25/21 Wes Bonilla MD 1740 [place] [address] Home Care Provider Family Medicine 02/03/22 Mera Langford MD 1 [place], [place] [phone] Referring 02/04/22 Erik Hassan RN [address] [employer], [place] [phone] Consulting Services Project Manager Post Acute Care 02/08/22 Card Tape Converter Operator Relationship Specialty Start Date End Date Wes Bonilla MD 1740 [place] [address] PCP - General Family Medicine 10/10/17 Elisabeth Canchola RN 6000 [place] [address] Accounting Reconciliation Clerk 02/11/21 Junaid Arriaga 1761 [address] AV[address]iela [facility] 3A [place] [address] Physician Cardiology 05/04/21 Santos Calvin [address] [address] Physician Urology 09/13/21 Flaquito Mariee 176 [place] [address] Byproducts Pump Operator Pulmonary Disease 10/25/21 Wes Bonilla MD 1740 [place] [address] Home Care Provider Family Medicine 02/03/22 Mera Langford MD 1 [place], [place] [phone] Referring 02/04/22 Erik Hassan, [place] [address] [place] [address] Consulting Services Project Manager Post Acute Care 02/08/22 Card Tape Converter Operator Relationship Specialty Start Date End Date Wes Bonilla MD 1740 [place], [place] 734951 PCP - General Family Medicine 10/10/17 Elisabeth Canchola RN 6000 [place] [address] Accounting Reconciliation Clerk 02/11/21 Junaid Arriaga 1761 [address] AV[address]iela [facility] [address] [place] [address] Physician Cardiology 05/04/21 Santos Calvin [address] [address] Physician Urology 09/13/21 Flaquito Mariee 1761 [facility] [place] [address] Byproducts Pump Operator Pulmonary Disease 10/25/21 Wes Bonilla MD 1740 [place] [address] Home Care Provider Family Medicine 02/03/22 Mera Langford MD 1 [place], [place] [phone] Referring 02/04/22 Erik Hassan, [place] [address] [place] [address] Consulting Services Project Manager Post Acute Care 02/08/22 Card Tape Converter Operator Relationship Specialty Start Date End Date Wes Bonilla MD 820 [place], [place] 324391 PCP - General Family Medicine 10/10/17 Elisabeth Canchola RN 6000 [place] [address] Accounting Reconciliation Clerk 02/11/21 Junaid Arraiga 1761 [facility] 3A [place] [address] Physician Cardiology 05/04/21 Santos Calvin [address] [place] [phone] Physician Urology 09/13/21 Flaquito Mariee 1761 [address] [facility] [place] [address] Byproducts Pump Operator Pulmonary Disease 10/25/21 Wes Bonilla MD 6700 [place] [address] Home Care Provider Family Medicine 02/03/22 Mera Langford MD 1 [place], [place] [phone] Referring 02/04/22 Card Tape Converter Operator Relationship Specialty Start Date End Date Wes Bonilla MD 1740 [place] [address] PCP - General Family Medicine 10/10/17 Elisabeth Canchola, RN 6000 [place], [place] 4092331 Accounting Reconciliation Clerk 02/11/21 Junaid Arriaga [address] [place] [address] Physician Cardiology 05/04/21 Santos Calvin [address] [address] Physician Urology 09/13/21 Flaquito Mariee [address] [place] [address] Byproducts Pump Operator Pulmonary Disease 10/25/21 Wes Bonilla MD 1740 [place] [address] Home Care Provider Family Medicine 02/03/22 Mera Langford MD 1 [place], [place] [phone] Referring 02/04/22 Card Tape Converter Operator Relationship Specialty Start Date End Date Wes Bonilla MD 1740 [place] [address] PCP - General Family Medicine 10/10/17 Elisabeth Canchola, RN 6000 [place] [address] Accounting Reconciliation Clerk 02/11/21 Junaid Arriaga [address] [place] [address] Physician Cardiology 05/04/21 Santos Calvin [address] [address] Physician Urology 09/13/21 Flaquito Mariee [address] [place] [address] Byproducts Pump Operator Pulmonary Disease 10/25/21 Wes Bonilla MD 1740 [place] [address] Home Care Provider Family Medicine 02/03/22 Mera Langford MD 1 [place], [place] [phone] Referring 02/04/22 Card Tape Converter Operator Relationship Specialty Start Date End Date Wes Bonilla MD 1740 [place] [address] PCP - General Family Medicine 10/10/17 Elisabeth Canchola, RN 6000 [place] [address] Accounting Reconciliation Clerk 02/11/21 Junaid Arriaga 176 [facility] [address] [address] Physician Cardiology 05/04/21 Santos Calvin [address] [address] Physician Urology 09/13/21 Flaquito Mariee [address] [place] [address] Byproducts Pump Operator Pulmonary Disease 10/25/21 Wes Bonilla MD 1740 [place] [address] Home Care Provider Family Medicine 02/03/22 Mera Langford MD 1 [place], [place] [phone] Referring 02/04/22 Card Tape Converter Operator Relationship Specialty Start Date End Date Wes Bonilla MD 1740 [place] [address] PCP - General Family Medicine 10/10/17 Elisabeth Canchola, RN 6000 [place] [address] Accounting Reconciliation Clerk 02/11/21 Junaid Arriaga [address] [facility] [address] [place] [address] Physician Cardiology 05/04/21 Santos Calvin [address] [place] [address] Physician Urology 09/13/[address]e [address] [facility] [place] [address] Byproducts Pump Operator Pulmonary Disease 10/25/21 Wes Bonilla MD 1740 [place] [address] Home Care Provider Family Medicine 02/03/22 Mera Langford MD 1 [place], [place] [phone] Referring 02/04/22 Card Tape Converter Operator Relationship Specialty Start Date End Date Wes Bonilla MD 1740 [place] [address] PCP - General Family Medicine 10/10/17 Elisabeth Canchola RN 6000 [place] [address] Accounting Reconciliation Clerk 02/11/21 Junaid Arriaga [address] [facility] [address] [place] [address] Physician Cardiology 05/04/21 Santos Calvin [address] [address] Physician Urology 09/13/21 Flaquito Mariee [address]61 [place] [address] Byproducts Pump Operator Pulmonary Disease 10/25/21 Wes Bonilla MD 1740 [place] [address] Home Care Provider Family Medicine 02/03/22 Mera Langford MD 1 [place], [place] [phone] Referring 02/04/22 Card Tape Converter Operator Relationship Specialty Start Date End Date Wes Bonilla MD 174 [place] [address] PCP - General Family Medicine 10/10/17 Elisabeth Canchola, RN 6000 [place] [address] Accounting Reconciliation Clerk 02/11/21 Junaid Arriaga 1761 [facility] [address] [address] Physician Cardiology 05/04/21 Santos Calvin [address] [address] Physician Urology 09/13/[address] [place] [address] Byproducts Pump Operator Pulmonary Disease 10/25/21 Wes Bonilla MD [address] [place] [address] Home Care Provider Family Medicine 02/03/22 Mera Langford MD 1 [place] [address] Referring 02/04/22 Card Tape Converter Operator Relationship Specialty Start Date End Date Wes oBnilla MD [address] [place] [address] PCP - General Family Medicine 10/10/17 Elisabeth Canchola RN [address] [place] [address] Accounting Reconciliation Clerk 02/11/21 [address] Arriaga [address] [facility] [address] [place] [address] Physician Cardiology 05/04/21 Santos Calvin MD [address] [address] Physician Urology 09/13/21 Flaquito Mariee [address] [facility] [address] [facility] [place] [address] Byproducts Pump Operator Pulmonary Disease 10/25/21 Wes Bonilla MD [address] [place] [address] Home Care Provider Family Medicine 02/03/22 Mera Langford MD 1 [place] [address] Referring 02/04/22 Card Tape Converter Operator Relationship Specialty Start Date End Date Wes Bonilla MD [address] [place], [place] 179051 PCP - General Family Medicine 10/10/17 Elisabeth Canchola RN [address] [place] [address] Accounting Reconciliation Clerk 02/11/21 Junaid Arriaga [address] [facility] [address] [place] [address] Physician Cardiology 05/04/21 Santos Calvin MD [address] [address] Physician Urology 09/13/21 Flaquito Mariee [address] [facility] [place] [address] Byproducts Pump Operator Pulmonary Disease 10/25/21 Wes Bonilla MD [address] [facility] [place] [address] Home Care Provider Family Medicine 02/03/22 Mera Langford MD [address] [place], [place] [id number] Referring 02/04/22 Card Tape Converter Operator Relationship Specialty Start Date End Date Wes Bonilla MD [address]40 [facility] [place] [address] PCP - General Family Medicine 10/10/17 Elisabeth Canchola, RN [address] [place] [address] Accounting Reconciliation Clerk 02/11/21 Junaid Arriaga [address] [place] [address] Physician Cardiology 05/04/21 Santos Calvin MD [address] [address] Physician Urology 09/13/21 Flaquito Mariee 1761 [facility] [place] [address] Byproducts Pump Operator Pulmonary Disease 10/25/21 Wes Bonilla MD [address] [place] [address] Home Care Provider Family Medicine 02/03/22 Mera Langford MD [address] [place], [place] [id number] Referring 02/04/22 Card Tape Converter Operator Relationship Specialty Start Date End Date Wes Bonilla MD [address] [place], [place] 888291 PCP - General Family Medicine 10/10/17 Elisabeth Canchola RN [address] [place], [place] [id number] Accounting Reconciliation Clerk 02/11/21 Junaid Arriaga [address] [address] [place] [address] Physician Cardiology 05/04/21 Santos Calvin MD 546 [facility] [address] [place], [place] [address]71 Physician Urology 09/13/21 Flaquito Mariee [address] [place] [address] Byproducts Pump Operator Pulmonary Disease 10/25/21 Wes Bonilla MD [address] [place] [address] Home Care Provider Family Medicine 02/03/22 Mera Langford MD 1 [place] [address] Referring 02/04/22 Card Tape Converter Operator Relationship Specialty Start Date End Date Wes Bonilla MD [address] [place], [place] 526731 PCP - General Family Medicine 10/10/17 Elisabeth Canchola RN [address] [place] [address] Accounting Reconciliation Clerk 02/11/21 Junaid Arriaga [address] [facility] [address] [place] [address] Physician Cardiology 05/04/21 Santos Calvin MD [address] [place] [address] Physician Urology 09/13/21 Flaquito Mariee [address] [place] [address] Byproducts Pump Operator Pulmonary Disease 10/25/21 Wes Bonilla MD [address] [place] [address] Home Care Provider Family Medicine 02/03/22 Mera Langford MD 1 [place], [place] [phone] Referring 02/04/22 Card Tape Converter Operator Relationship Specialty Start Date End Date Wes Bonilla MD [address] [place] [address] PCP - General Family Medicine 10/10/17 Elisabeth Canchola, RN [address] [place] [address] Accounting Reconciliation Clerk 02/11/21 Junaid Arriaga [address] [facility] [address] [place] [address] Physician Cardiology 05/04/21 Santos Calvin MD [address] [address] Physician Urology 09/13/21 Flaquito Mariee [address] [place] [address] Byproducts Pump Operator Pulmonary Disease 10/25/21 Wes Bonilla MD [address] [place] [address] Home Care Provider Family Medicine 02/03/22 Mera Langford MD 1 [place], [place] [id number] Referring 02/04/22 Card Tape Converter Operator Relationship Specialty Start Date End Date Wes Bonilla MD [address] [place], [place] 153301 PCP - General Family Medicine 10/10/17 Elisabeth Canchola, RN [address] [place] [address] Accounting Reconciliation Clerk 02/11/21 Junaid Arriaga [address] [facility] [address] [place] [address] Physician Cardiology 05/04/21 Santos Calvin MD [address] [address] Physician Urology 09/13/21 Flaquito Mariee [address] [facility] [address] [facility] [place] [address] Byproducts Pump Operator Pulmonary Disease 10/25/21 Wes Bonilla MD [address] [place] [address] Home Care Provider Family Medicine 02/03/22 Mera Langford MD 1 [place] [address] Referring 02/04/22 Card Tape Converter Operator Relationship Specialty Start Date End Date Wes Bonilla MD [address] [place], [place] 355071 PCP - General Family Medicine 10/10/17 Elisabeth Canchola RN [address] [place] [address] Accounting Reconciliation Clerk 02/11/21 Junaid Arriaga [address] [place] [address] Physician Cardiology 05/04/21 Santos Calvin MD [address] [place] [address] Physician Urology 09/13/21 Flaquito Mariee 176 [facility] [address] Byproducts Pump Operator Pulmonary Disease 10/25/21 Wes Bonilla MD [address]40 [facility] [place] [address] Home Care Provider Family Medicine 02/03/22 Mera Langford MD 1 [place], [place] [phone] Referring 02/04/22 Card Tape Converter Operator Relationship Specialty Start Date End Date Wes Bonilla MD [address] [place] [address] PCP - General Family Medicine 10/10/17 Elisabeth Canchola, RN [address] [place] [address] Accounting Reconciliation Clerk 02/11/21 Junaid Arriaga [address] [facility] [address] [place] [address] Physician Cardiology 05/04/21 Santos Calvin MD [address] [place] [address] Physician Urology 09/13/21 Flaquito Mariee 1761 [facility] [place] [place] [address] Byproducts Pump Operator Pulmonary Disease 10/25/21 Wes Bonilla MD 1740 [facility] [place], [place] [id number] Home Care Provider Family Medicine 02/03/22 Mera Langford MD [address] [place], [place] [id number] Referring 02/04/22 Card Tape Converter Operator Relationship Specialty Start Date End Date Wes Bonilla MD [address] [place], [place] 6[address] PCP - General Family Medicine 10/10/17 Elisabeth Canchola RN [address] [place] [address] Accounting Reconciliation Clerk 02/11/2107/07 Junaid Arriaga 1761 [facility] 3A [place] [address] Physician Cardiology 05/04/21 Santos Calvin MD [address] [place] [address] Physician Urology 09/13/21 Flaquito Mariee 1761 [place], [place] 211611 Byproducts Pump Operator Pulmonary Disease 10/25/21 Wes Bonilla MD [address] [place], [place] [address] Home Care Provider Family Medicine 02/03/22 Mera Langford MD 1 [place], [place] [phone] Referring 02/04/22 Erik Hassan, [place] [address] [employer], [place] [id number] Consulting Services Project Manager Post Acute Care 02/08/22 03/08/22 Michelle Rocha, circular ripsaw operatorAccounting Reconciliation Clerk 07/08/22 Card Tape Converter Operator Relationship Specialty Start Date End Date Wes Bonilla MD [address] [place], [place] [id number] PCP - General Family Medicine 10/10/17 Junaid Arriaga [address] [address] [place] [address] Physician Cardiology 05/04/21 Santos Calvin MD [address] [place] [address] [place] [address] Physician Urology 09/13/21 Flaquito Mariee [address] [place] [address] Byproducts Pump Operator Pulmonary Disease 10/25/21 Wes Bonilla MD 1740 [facility] [place] [address] Home Care Provider Family Medicine 02/03/22 Mera Langford MD 1 [place] [address] Referring 02/04/22 Michelle Rocha, circular ripsaw operatorAccounting Reconciliation Clerk 07/08/22 Card Tape Converter Operator Relationship Specialty Start Date End Date Wes Bonilla MD [address]40 [facility] [place] [address] PCP - General Family Medicine 10/10/17 Junaid Arriaga [address] [address] [place] [address] Physician Cardiology 05/04/21 Santos Calvin MD [address] [address] [place] [address] Physician Urology 09/13/21 Flaquito Mareie [address] [place] [address] Byproducts Pump Operator Pulmonary Disease 10/25/21 Wes Bonilla MD 1740 [facility] [place] [address] Home Care Provider Family Medicine 02/03/22 Mera Langford MD 1 [place] [address] Referring 02/04/22 Michelle Rocha, circular ripsaw operatorAccounting Reconciliation Clerk 07/08/22 Card Tape Converter Operator Relationship Specialty Start Date End Date Wes Bonilla MD [address] [facility] [place] [address] PCP - General Family Medicine 10/10/17 Junaid Arriaga [address] [facility] [address] [place] [address] Physician Cardiology 05/04/21 Santos Calvin MD 546 [facility] [address] [place] [address] Physician Urology 09/13/21 Flaquito Mariee [address] [place] [address] Byproducts Pump Operator Pulmonary Disease 10/25/21 Wes Bonilla MD [address] [place] [address] Home Care Provider Family Medicine 02/03/22 Mera Langford MD 1 [place] [address] Referring 02/04/22 Michelle Rocha, circular ripsaw operatorAccounting Reconciliation Clerk 07/08/22 Card Tape Converter Operator Relationship Specialty Start Date End Date Wes Bonilla MD [address] [place] [address] PCP - General Family Medicine 10/10/17 Junaid Arriaga [address] [place] [address] Physician Cardiology 05/04/21 Santos Calvin MD [address] [place] [address] Physician Urology 09/13/21 Flaquito Mariee [address] [place] [address] Byproducts Pump Operator Pulmonary Disease 10/25/21 Wes Bonilla MD [address]40 [facility] [place] [address] Home Care Provider Family Medicine 02/03/22 Mera Langford MD [address] [place], [place] [phone] Referring 02/04/22 Michelle Rocha, circular ripsaw operatorAccounting Reconciliation Clerk 07/08/22 Card Tape Converter Operator Relationship Specialty Start Date End Date Wes Bonilla MD [address] [place] [address] PCP - General Family Medicine 10/10/17 Junaid Arriaga [address] [place] [address] Physician Cardiology 05/04/21 Santos Calvin MD [address] [address] Physician Urology 09/13/21 Flaquito Mariee [address] [place] [address] Byproducts Pump Operator Pulmonary Disease 10/25/21 Wes Bonilla MD [address] [place] [address] Home Care Provider Family Medicine 02/03/22 Mera Langford MD [address] [place], [place] [phone] Referring 02/04/22 Michelle Rocha, circular ripsaw operatorAccounting Reconciliation Clerk 07/08/22 Card Tape Converter Operator Relationship Specialty Start Date End Date Wes Bonilla MD [address] [facility] [place] [address] PCP - General Family Medicine 10/10/17 Junaid Arriaga [address] [address] [place] [address] Physician Cardiology 05/04/21 Santos Calvin MD [address] [address] [place] [address] Physician Urology 09/13/21 Flaquito Mariee [address] [place] [address] Byproducts Pump Operator Pulmonary Disease 10/25/21 Wes Bonilla MD [address]40 [facility] [place] [address] Home Care Provider Family Medicine 02/03/22 Mera Langford MD 1 [place] [address] Referring 02/04/22 Michelle Rocha, circular ripsaw operatorAccounting Reconciliation Clerk 07/08/22 Card Tape Converter Operator Relationship Specialty Start Date End Date eWs Bonilla MD [address] [facility] [place] [address] PCP - General Family Medicine 10/10/17 Junaid Arriaga [address] [address] [place] [address] Physician Cardiology 05/04/21 Santos Calvin MD [address] [address] [place] [address] Physician Urology 09/13/21 Flaquito Mariee [address] [place] [address] Byproducts Pump Operator Pulmonary Disease 10/25/21 Wes Bonilla MD [address] [place] [address] Home Care Provider Family Medicine 02/03/22 Mera Langford MD [address] [place], [place] [phone] Referring 02/04/22 Michelle Rocha, circular ripsaw operatorAccounting Reconciliation Clerk 07/08/22 Card Tape Converter Operator Relationship Specialty Start Date End Date Wes Bonilla MD [address] [place], [place] 329491 PCP - General Family Medicine 10/10/17 Junaid Arriaga [address] [place] [address] Physician Cardiology 05/04/21 Santos Calvin MD [address] [place] [address] Physician Urology 09/13/21 Flaquito Mariee [address] [address] Byproducts Pump Operator Pulmonary Disease 10/25/21 Wes Bonilla MD [address] [place] [address] Home Care Provider Family Medicine 02/03/22 Mera Langford MD [address] [place], [place] [phone] Referring 02/04/22 Michelle Rocha, circular ripsaw operatorAccounting Reconciliation Clerk 07/08/22 Card Tape Converter Operator Relationship Specialty Start Date End Date Wes Bonilla MD [address] [place] [address] PCP - General Family Medicine 10/10/17 Junaid Arriaga [address] [place] [address] Physician Cardiology 05/04/21 Santos Calvin MD [address] [address] [place] [address] Physician Urology 09/13/21 Flaquito Mariee [address] [place] [address] Byproducts Pump Operator Pulmonary Disease 10/25/21 Wes Bonilla MD [address] [place] [address] Home Care Provider Family Medicine 02/03/22 Mera Langford MD [address] [place], [place] [phone] Referring 02/04/22 Michelle Rocha, circular ripsaw operatorAccounting Reconciliation Clerk 07/08/22 Card Tape Converter Operator Relationship Specialty Start Date End Date Wes Bonilla MD [address] [place] [address] PCP - General Family Medicine 10/10/17 Junaid Arriaga [address] [place] [address] Physician Cardiology 05/04/21 Santos Calvin MD [address] [address] [place] [address] Physician Urology 09/13/21 Flaquito Mariee [address] [place] [address] Byproducts Pump Operator Pulmonary Disease 10/25/21 Wes Bonilla MD [address]40 [facility] [place] [address] Home Care Provider Family Medicine 02/03/22 Mera Langford MD 1 [place] [address] Referring 02/04/22 Michelle Rocha, circular ripsaw operatorAccounting Reconciliation Clerk 07/08/22 Card Tape Converter Operator Relationship Specialty Start Date End Date Wes Bonilla MD [address] [facility] [place] [address] PCP - General Family Medicine 10/10/17 Junaid Arriaga [address] [place] [address] Physician Cardiology 05/04/21 Santos Calvin MD [address] [address] Physician Urology 09/13/21 Flaquito Mariee [address] [place] [address] Byproducts Pump Operator Pulmonary Disease 10/25/21 Wes Bonilla MD [address] [place] [address] Home Care Provider Family Medicine 02/03/22 Mera Langford MD [address] [place], [place] [phone] Referring 02/04/22 Michelle Rocha, circular ripsaw operatorAccounting Reconciliation Clerk 07/08/22 Card Tape Converter Operator Relationship Specialty Start Date End Date Wes Bonilla MD [address] [place] [address] PCP - General Family Medicine 10/10/17 Junaid Arriaga [address] [place] [address] Physician Cardiology 05/04/21 Santos Calvin MD [address] [address] Physician Urology 09/13/21 Flaquito Mariee [address] [place] [address] Byproducts Pump Operator Pulmonary Disease 10/25/21 Wes Bonilla MD [address] [place] [address] Home Care Provider Family Medicine 02/03/22 Mera Langford MD [address] [place], [place] [phone] Referring 02/04/22 Michelle Rocha, circular ripsaw operatorAccounting Reconciliation Clerk 07/08/22 Card Tape Converter Operator Relationship Specialty Start Date End Date Wes Bonilla MD [address] [facility] [place] [address] PCP - General Family Medicine 10/10/17 Junaid Arriaga [address] [place] [address] Physician Cardiology 05/04/21 Santos Calvin MD [address] [address] Physician Urology 09/13/21 Flaquito Mariee [address] [place] [address] Byproducts Pump Operator Pulmonary Disease 10/25/21 Wes Bonilla MD [address] [place] [address] Home Care Provider Family Medicine 02/03/22 Mera Langford MD 1 [place] [address] Referring 02/04/22 Michelle Rocha, circular ripsaw operatorAccounting Reconciliation Clerk 07/08/22 Card Tape Converter Operator Relationship Specialty Start Date End Date Wes Bonilla MD [address] [facility] [place] [address] PCP - General Family Medicine 10/10/17 Junaid Arriaga [address] [place] [address] Physician Cardiology 05/04/21 Santos Calvin MD [address] [address] [place] [address] Physician Urology 09/13/21 Flaquito Mariee [address] [place] [address] Byproducts Pump Operator Pulmonary Disease 10/25/21 Wes Bonilla MD [address] [facility] [place] [address] Home Care Provider Family Medicine 02/03/22 Mera Langford MD 1 [place] [address] Referring 02/04/22 Michelle Rocha, circular ripsaw operatorAccounting Reconciliation Clerk 07/08/22 Card Tape Converter Operator Relationship Specialty Start Date End Date Wes Bonilla MD [address] [facility] [place] [address] PCP - General Family Medicine 10/10/17 Junaid Arriaga [address] [place] [address] Physician Cardiology 05/04/21 Santos Calvin MD [address] [place] [address] Physician Urology 09/13/21 Flaquito Mariee [address] [place] [address] Byproducts Pump Operator Pulmonary Disease 10/25/21 Wes Bonilla MD [address] [place] [address] Home Care Provider Family Medicine 02/03/22 Mera Langford MD 1 [place] [address] Referring 02/04/22 Michelle Rocha, circular ripsaw operatorAccounting Reconciliation Clerk 07/08/22 Card Tape Converter Operator Relationship Specialty Start Date End Date Wes Bonilla MD [address] [place], [place] 181121 PCP - General Family Medicine 10/10/17 Junaid Arriaga [address] [phone] Physician Cardiology 05/04/21 Santos Calvin MD [address] [place] [address]011 Physician Urology 09/13/21 Flaquito Mariee [address] [place] [address] Byproducts Pump Operator Pulmonary Disease 10/25/21 Wes Bonilla MD [address] [place], [place] 79713691 Home Care Provider Family Medicine 02/03/22 Mera Langford MD [address] [place], [place] [phone] Referring 02/04/22 Jolene Emery, circular ripsaw operatorAccounting Reconciliation Clerk 12/20/22 Card Tape Converter Operator Relationship Specialty Start Date End Date Wes Bonilla MD 174 [place], [place] 024991 PCP - General Family Medicine 10/10/17 Junaid Arriaga 176 [facility] [address] [place] [address] Physician Cardiology 05/04/21 Santos Calvin MD [address] [place] [address] Physician Urology 09/13/21 Flaquito Mariee 176 [place] [address] Byproducts Pump Operator Pulmonary Disease 10/25/21 Wes Bonilla MD 174 [place], [place] 516141 Home Care Provider Family Medicine 02/03/22 Mera Langford MD 1 [place] [address] Referring 02/04/22 Jolene Emery, circular ripsaw operatorAccounting Reconciliation Clerk 12/20/22 Card Tape Converter Operator Relationship Specialty Start Date End Date Wes Bonilla MD [address] [place], [place] 45738691 PCP - General Family Medicine 10/10/17 Junaid Arriaga [address] [phone] Physician Cardiology 05/04/21 Santos Calvin MD [address] 515631 Physician Urology 09/13/21 Flaquito Mariee [address] [place], [place] [address]17[address] Byproducts Pump Operator Pulmonary Disease 10/25/21 Wes Bonilla MD [address] [place], [place] 869261 Home Care Provider Family Medicine 02/03/22 Mera Langford MD [address] [place], [place] [phone] Referring 02/04/22 Jolene Emery, circular ripsaw operatorAccounting Reconciliation Clerk 12/20/22 Card Tape Converter Operator Relationship Specialty Start Date End Date Wes Bonilla MD [address] [place], [place] 297421 PCP - General Family Medicine 10/10/17 Junaid Arriaga [address] [place] [address] Physician Cardiology 05/04/21 Santos Calvin MD [address] [address] Physician Urology 09/13/21 Flaquito Mariee [address] [place] [address] Byproducts Pump Operator Pulmonary Disease 10/25/21 Wes Bonilla MD [address] [place], [place] 008871 Home Care Provider Family Medicine 02/03/22 Mera Langford MD 1 [place] [address] Referring 02/04/22 Jolene Emery, circular ripsaw operatorAccounting Reconciliation Clerk 12/20/22 Card Tape Converter Operator Relationship Specialty Start Date End Date Wes Bonilla MD [address] [place], [place] 392571 PCP - General Family Medicine 10/10/17 Junaid Arriaga [address] [phone] Physician Cardiology 05/04/21 Santos Calvin MD [address] [place] [address] Physician Urology 09/13/21 Flaquito Mariee MD [address]61 [place] [address] Byproducts Pump Operator Pulmonary Disease 10/25/21 Wes Bonilla MD [address] [place] [address] Home Care Provider Family Medicine 02/03/22 Mera Langford MD [address] [place], [place] [phone] Referring 02/04/22 Jolene Emery circular ripsaw operatorAccounting Reconciliation Clerk 12/20/22 Card Tape Converter Operator Relationship Specialty Start Date End Date Wes Bonilla MD [address] [place] [address] PCP - General Family Medicine 10/10/17 Junaid Arriaga 176 [facility] [address] [phone] Physician Cardiology 05/04/21 Santos Calvin MD [address] [address] Physician Urology 09/13/21 Flaquito Mariee MD 176 [place] [address] Byproducts Pump Operator Pulmonary Disease 10/25/21 Wes Bonilla MD 174 [place] [address] Home Care Provider Family Medicine 02/03/22 Mera Langford MD 1 [place] [address] Referring 02/04/22 Jolene Emery circular ripsaw operatorAccounting Reconciliation Clerk 12/20/22 Card Tape Converter Operator Relationship Specialty Start Date End Date Wes Bonilla MD 174 [place], [place] 465081 PCP - General Family Medicine 10/10/17 Junaid Arriaga [address] [phone] Physician Cardiology 05/04/21 Santos Calvin MD [address] [address] Physician Urology 09/13/21 Flaquito Mariee MD [address] [place], [place] 917111 Byproducts Pump Operator Pulmonary Disease 10/25/21 Wes Bonilla MD [address] [place], [place] 768341 Home Care Provider Family Medicine 02/03/22 Mera Langford MD 1 [place] [address] Referring 02/04/22 Jolene Emery, circular ripsaw operatorAccounting Reconciliation Clerk 12/20/22 Card Tape Converter Operator Relationship Specialty Start Date End Date Wes Bonilla MD 174 [place], [place] 064171 PCP - General Family Medicine 10/10/17 Junaid Arriaga [address] [place] [address] Physician Cardiology 05/04/21 Santos Calvin MD [address] [place] [address] [id number] Physician Urology 09/13/21 Flaquito Mariee MD [address] [place], [place] [phone] Byproducts Pump Operator Pulmonary Disease 10/25/21 Wes Bonilla MD [address] [place], [place] 66966691 Home Care Provider Family Medicine 02/03/22 Mera Langford MD 1 [place] [address] Referring 02/04/22 Jolene Emery, circular ripsaw operatorAccounting Reconciliation Clerk 12/20/22 Card Tape Converter Operator Relationship Specialty Start Date End Date Wes Bonilla MD [address] [place], [place] 182561 PCP - General Family Medicine 10/10/17 Junaid Arriaga 1761 [facility] [address] [place] [address] Physician Cardiology 05/04/21 Santos Calvin MD [address] [place] [address] Physician Urology 09/13/21 Flaquito Mariee MD 1761 [place], [place] 087251 Byproducts Pump Operator Pulmonary Disease 10/25/21 Wes Bonilla MD [address] [place], [place] 582351 Home Care Provider Family Medicine 02/03/22 Mera Langford MD 1 [place] [address] Referring 02/04/22 Jolene Emery, circular ripsaw operatorAccounting Reconciliation Clerk 12/20/22 Card Tape Converter Operator Relationship Specialty Start Date End Date Wes Bonilla MD [address] [place], [place] 279851 PCP - General Family Medicine 10/10/17 Junaid Arriaga [address] [place] [address] Physician Cardiology 05/04/21 Santos Calvin MD [address] [place] [address] Physician Urology 09/13/21 Flaquito Mariee MD [address] [place] [address] Byproducts Pump Operator Pulmonary Disease 10/25/21 Wes Bonilla MD [address] [facility] [place] [address] Home Care Provider Family Medicine 02/03/22 Mera Langford MD 1 [place] [address] Referring 02/04/22 Jolene Emery, circular ripsaw operatorAccounting Reconciliation Clerk 12/20/22 Card Tape Converter Operator Relationship Specialty Start Date End Date Wes Bonilla MD [address] [facility] [place] [address] PCP - General Family Medicine 10/10/17 Junaid Arriaga [address] [place] [address] Physician Cardiology 05/04/21 Santos Calvin MD [address] [place] [address] Physician Urology 09/13/21 Flaquito Mariee MD 1761 [place] [address] Byproducts Pump Operator Pulmonary Disease 10/25/21 Wes Bonilla MD [address]40 [place] [address] Home Care Provider Family Medicine 02/03/22 Mera Langford MD 1 [place], [place] [phone] Referring 02/04/22 Jolene Emery, circular ripsaw operatorAccounting Reconciliation Clerk 12/20/22 Card Tape Converter Operator Relationship Specialty Start Date End Date Wes Bonilla MD 174 [place], [place] [id number] PCP - General Family Medicine 10/10/17 Junaid Arriaga [address] [address] Physician Cardiology 05/04/21 Santos Calvin MD [address] [place] [address] Physician Urology 09/13/21 Flaquito Mariee MD [address]61 [place] [address] Byproducts Pump Operator Pulmonary Disease 10/25/21 Wes Bonilla MD [address] [place], [place] [id number] Home Care Provider Family Medicine 02/03/22 Mera Langford MD 1 [place], [place] [phone] Referring 02/04/22 Jolene Emery RN Accounting Reconciliation Clerk 12/20/22 Card Tape Converter Operator Relationship Specialty Start Date End Date Wes Bonilla MD [address] [place], [place] [address] PCP - General Family Medicine 10/10/17 Junaid Arriaga 176 [facility] [address] [place] [phone] Physician Cardiology 05/04/21 Santos Calvin MD [address] [place] [address] Physician Urology 09/13/21 Flaquito Mariee MD 176 [place] [address] Byproducts Pump Operator Pulmonary Disease 10/25/21 Wes Bonilla MD 174 [place], [place] 997141 Home Care Provider Family Medicine 02/03/22 Mera Langford MD 1 [place] [address] Referring 02/04/22 Michelle Rocha, circular ripsaw operatorAccounting Reconciliation Clerk 07/08/22 3 Card Tape Converter Operator Relationship Specialty Start Date End Date Wes Bonilla MD 174 [place], [place] [id number] PCP - General Family Medicine 10/10/17 Junaid Arriaga [address] [phone] Physician Cardiology 05/04/21 Santos Calvin MD [address] [address] Physician Urology 09/13/21 Flaquito Mariee MD 176 [facility] [place], [place] [address] Byproducts Pump Operator Pulmonary Disease 10/25/21 Wes Bonilla MD 174 [place], [place] 984861 Home Care Provider Family Medicine 02/03/22 Mera Langford MD 1 [place], [place] [phone] Referring 02/04/22 Michelle Rocha, circular ripsaw operatorAccounting Reconciliation Clerk 07/08/22 3 Card Tape Converter Operator Relationship Specialty Start Date End Date Wes Bonilla MD [address]40 [place], [place] [address]32771 PCP - General Family Medicine 10/10/17 Junaid Arriaga [address] [phone] Physician Cardiology 05/04/21 Santos Calvin MD [address] [address] Physician Urology 09/13/21 Flaquito Mariee MD [address] [place], [place] [address]91 Byproducts Pump Operator Pulmonary Disease 10/25/21 Wes Bonilla MD [address]40 [place], [place] 046701 Home Care Provider Family Medicine 02/03/22 Mera Langford MD 1 [place], [place] [phone] Referring 02/04/22 Michelle Rocha, circular ripsaw operatorAccounting Reconciliation Clerk 07/08/22 3 Card Tape Converter Operator Relationship Specialty Start Date End Date Wes Bonilla MD 174 [place], [place] [phone] PCP - General Family Medicine 10/10/17 Elisabeth Canchola RN [address] [place] [phone] Accounting Reconciliation Clerk 02/11/2107/07 Junaid Arriaga 176 [facility] [address] [place] [phone] Physician Cardiology 05/04/21 aSntos Calvin MD [address] [place] [address] [address] [place] [address] Physician Urology 09/13/21 Flaquito Mariee MD [address]61 [facility] [place] [address] Byproducts Pump Operator Pulmonary Disease 10/25/21 Wes Bonilla MD [address]40 [place], [place] 443521 Home Care Provider Family Medicine 02/03/22 Mera Langford MD 1 [place] [address] Referring 02/04/22 Card Tape Converter Operator Relationship Specialty Start Date End Date Wes Bonilla MD 174 [place], [place] 991481 PCP - General Family Medicine 10/10/17 Junaid Arriaga MD 176 [facility] [address] [place] [address] Physician Cardiology 05/04/21 Santos Calvin MD [address] [place] [address] Physician Urology 09/13/21 Flaquito Mariee MD 176 [place] [address] Byproducts Pump Operator Pulmonary Disease 10/25/21 Wes Bonilla MD 174 [place], [place] 461251 Home Care Provider Family Medicine 02/03/22 Mera Langford MD 1 [place] [address] Referring 02/04/22 Jolene Emery, circular ripsaw operatorAccounting Reconciliation Clerk 12/20/22 Card Tape Converter Operator Relationship Specialty Start Date End Date Wes Bonilla MD 174 [place], [place] [address]36[address] PCP - General Family Medicine 10/10/17 Junaid Arriaga MD [address] [address] Physician Cardiology 05/04/21 Santos Calvin MD [address] [address] Physician Urology 09/13/21 Flaquito Mariee MD [address] [place], [place] [address] Byproducts Pump Operator Pulmonary Disease 10/25/21 Wes Bonilla MD 1740 [place], [place] 377031 Home Care Provider Family Medicine 02/03/22 Mera Langford MD 1 [place], [place] [phone] Referring 02/04/22 Jolene Emery, circular ripsaw operatorAccounting Reconciliation Clerk 12/20/22 Card Tape Converter Operator Relationship Specialty Start Date End Date Wes Bonilla MD [address]40 [facility] [place], [place] [address] PCP - General Family Medicine 10/10/17 Junaid Arriaga MD [address] [facility] [address] [place] [address] Physician Cardiology 05/04/21 Santos Calvin MD [address] [address] Physician Urology 09/13/21 Flaquito Mariee MD [address] [place] [address] Byproducts Pump Operator Pulmonary Disease 10/25/21 Wes Bonilla MD 1740 [place] [address] Home Care Provider Family Medicine 02/03/22 Mera Langford MD 1 [place] [address] Referring 02/04/22 Jolene Emery, circular ripsaw operatorAccounting Reconciliation Clerk 12/20/22 Card Tape Converter Operator Relationship Specialty Start Date End Date Wes Bonilla MD [address]40 [place], [place] 8[address]21 PCP - General Family Medicine 10/10/17 Junaid Arriaga MD [address] [address] Physician Cardiology 05/04/21 Santos Calvin MD [address] [place] [address] Physician Urology 09/13/21 Flaquito Mariee MD [address]61 [place] [address] Byproducts Pump Operator Pulmonary Disease 10/25/21 Wes Bonilla MD [address]40 [place] [address] Home Care Provider Family Medicine 02/03/22 Mera Langford MD 1 [place], [place] [phone] Referring 02/04/22 Jolene Emery circular ripsaw operatorAccounting Reconciliation Clerk 12/20/22 Card Tape Converter Operator Relationship Specialty Start Date End Date Wes Bonilla MD [address]40 [place] [address] PCP - General Family Medicine 10/10/17 Junaid Arriaga MD [address] [place] [address] Physician Cardiology 05/04/21 Santos Calvin MD [address] [address] Physician Urology 09/13/21 Flaquito Mariee MD [address] [facility] [place] [address] Byproducts Pump Operator Pulmonary Disease 10/25/21 Wes Bonilla MD 174 [place] [address] Home Care Provider Family Medicine 02/03/22 Mera Langford MD 1 [place] [address] Referring 02/04/22 Jolene Emery, circular ripsaw operatorAccounting Reconciliation Clerk 12/20/22 Card Tape Converter Operator Relationship Specialty Start Date End Date Wes Bonilla MD [address]40 [place] [address] PCP - General Family Medicine 10/10/17 Junaid Arriaga MD [address] [address] Physician Cardiology 05/04/21 Santos Calvin MD [address] [address] Physician Urology 09/13/21 Flaquito Mariee MD [address] [place], [place] [address] Byproducts Pump Operator Pulmonary Disease 10/25/21 Wes Bonilla MD [address] [place], [place] [address]83[address] Home Care Provider Family Medicine 02/03/22 Mera Langford MD 1 [place], [place] [phone] Referring 02/04/22 Jolene Emery, circular ripsaw operatorAccounting Reconciliation Clerk 12/20/22 Card Tape Converter Operator Relationship Specialty Start Date End Date Wes Bonilla MD [address] [place] [address] PCP - General Family Medicine 10/10/17 Junaid Arriaga MD [address] [address] Physician Cardiology 05/04/21 Santos Calvin MD [address] [place] [address] Physician Urology 09/13/21 Flaquito Mariee MD [address] [place] [address] Byproducts Pump Operator Pulmonary Disease 10/25/21 Wes Bonilla MD [address] [place] [address] Home Care Provider Family Medicine 02/03/22 Mera Langford MD 1 [place] [address] Referring 02/04/22 Jolene Emery, circular ripsaw operatorAccounting Reconciliation Clerk 12/20/22 Card Tape Converter Operator Relationship Specialty Start Date End Date Wes Bonilla MD [address] [place], [place] [id number] PCP - General Family Medicine 10/10/17 Junaid Arriaga MD [address]61 [facility] [address] [place], [place] [phone] Physician Cardiology 05/04/21 Santos Calvin MD [address] [place] [address] Physician Urology 09/13/21 Flaquito Mariee MD [address]61 [place], [place] [address]401 Byproducts Pump Operator Pulmonary Disease 10/25/21 Wes Bonilla MD [address] [place], [place] 607[address] Home Care Provider Family Medicine 02/03/22 Mera Langford MD 1 [place] [address] Referring 02/04/22 Jolene Emery, circular ripsaw operatorAccounting Reconciliation Clerk 12/20/22 FOR RECORDS PERTAINING TO PATIENTS WHO ARE OR HAVE BEEN ENROLLED IN A CHEMICAL DEPENDENCY/SUBSTANCEABUSE PROGRAM, SOME INFORMATION MAY BE OMITTED. This clinical summary was aggregated from multiple sources. Caution should be exercised in using it in the provision of clinical care. This summary normalizes information from multiple sources, and as a consequence, information in this document may materially change the coding, format and clinical context of patient data. In addition, data may be omitted in some cases. CLINICAL DECISIONS SHOULD BE BASED ON THE PRIMARY CLINICAL RECORDS. [facility]. provides no warranty or guarantee of the accuracy or completeness of information in this document.
== END | disposition home or self-care (01) ==
PROVIDERS: PCP Family Medicine; Referring Provider Surgery; Visit Provider Surgery
DX: E04.2 Nontoxic multinodular goiter (principal)
CPT/HCPCS: 76536

== ENCOUNTER → 2023-06-15 | Outpatient (CLI) | payer MEDICARE, MEDICAID, SELFPAY ==
--- NOTE | 2023-06-15 10:03 | ASPS_PTH ---
PATHOLOGY RESULTS PATIENT: NIMISHA CEJA LOC: [facility] U#:[id number] AGE/SX: 77/F ROOM: RE06/15/[address]: Dr. Abimael Evans MD : 1945 BED: DIS: 06/15/2023 SPEC #: [id number] RECD: 06/15/23 11:08 STATUS: PATO CRABTREE #: [id number] FELICIA: 06/15/23 10:[address]: Abimael Evans DEPT: CYTOLOGY RECD BY: Mignon Huizar ENTERED: 06/15/23 11:44 SP TYPE: ASPIRATION OTHR DR: Dr. Wes Magallon MD Tissues: Thyroid gland, NOS Procedures: Special Stain Group II Cytology Other HEADER OPERATION: Left thyroid, fine needle aspiration PRE-OP DIAGNOSIS: Left thyroid nodule TISSUE SUBMITTED: Left thyroid x8 slides DIAGNOSIS CYTOLOGY Fine needle aspiration, left thyroid nodule (smears): Consistent with benign follicular nodule ([place] Category II). See comment. AM:rosana 06/15/2023 COMMENT The [place] System for thyroid diagnostic categorization was used in the evaluation of this case. CYTOLOGY STUDY Slides are reviewed. CYTOLOGY GROSS Received are eight smears labeled with the patient's name and designated per the requisition as left thyroid. Submitted for staining. / rosana 06/15/2023 TC:5 CPT: 79708
--- OUTSIDE RECORDS SUMMARY | 2023-06-15 12:57 | XMS RPT_ITS | CCD ---
Author Name Unknown Address [address] [place] [address] [facility] Care Team Providers Care Mechanical Service Specialist Name Role Phone AMBER MANNING Unavailable Unavailable Monroe Burden Unavailable Unavailable AMBER MANNING Unavailable Unavailable AMBER MANNING Unavailable Unavailable Monroe Burden Unavailable Unavailable Monroe Burden Unavailable Unavailable AMBER MANNING Unavailable Unavailable AMBER MANNING Unavailable Unavailable Wes Bonilla MD Primary Care Provider Mirtha TODD, Elisabeth Owens Unavailable Unavail able Junaid Arriaga Unavailable Santos Calvin Unavailable Mirtha TODD, Elisabeth Owens Unavailable Flaquito Mariee Unavailable Wes Bonilla MD Primary Care Provider Mirtha TODD, Elisabeth Owens Unavailable Junaid Arriaga Unavailable NikunjSantos mckeonJose Unavailable Flaquito Mariee Unavailable [phone] Wes Bonilla MD Unavailable Anatsasiya MARKS, Mera Unavailable Erik Hassan RN Unavailable Wes Bonilla MD Unavailable Mirtha TODD, Elisabeth Owens Unavailable [phone] Junaid Arriaga Unavailable Mansi CalvinJose Unavailable Flaquito Mariee Unavailable Anastasiya MARKS, Mera Unavailable [phone] Mo TODD, Erik Unavailable Wes Bonilla MD Primary Care Provider Wes Bonilla MD Unavailable Wes Bonilla MD Primary Care Provider Mirtha RN, Elisabeth Owens Unavailable Junaid Arriaga Unavailable Santos Calvin Unavailable Flaquito Mariee Unavailable Wes Bonilla MD Unavailable Anastasiya MARKS, Mera Unavailable Nikunj MARKS, Santos Lubin Unavailable [phone] Mirtha RN, Elisabeth Owens Unavailable [phone] Mo TODD, Erik Unavailable Josefina TODD, Michelle Unavailable Unavailable Nikunj MARKS, Santos Lubin Unavailable Flaquito Mariee Unavailable Anastasiya MARKS, Mera Unavailable Enrrique TODD, Jolene Mary Unavailable Unavailtrina Mariee MD, Flaquito Ramires Unavailable Flaquito Mariee MD Unavailable Enrrique RN, Jolene Mary Unavailable Unavailtrina Rocha RN, Michelle Unavailable Unavailable Mirtha TODD, Elisabeth Owens Unavailable Corina MARKS, Junaid F Unavailable WES BONILLA Primary Care Unavailable Usman MEHTA Attending Unavailable WES BONILLA Primary Care Unavailable WES BONILLA Primary Care Unavailable WES BONILLA Primary Care Unavailable WES BONILLA Primary Care Unavailable Usman MEHTA Referring Unavailable WES BONILLA Referring Unavailable WES BONILLA Primary Care Unavailable WES BONILLA Referring Unavailable WES BONILLA Primary Care Unavailable WES BONILLA Referring Unavailable KORI, WES Tyler Primary Care Unavailable KORI, WES Tyler Primary Care Unavailable KORI, WES Tyler Attending Unavailable KORI, WES Tyler Primary Care Unavailable Usman MEHTA Referring Unavailable KORI, WES Tyler Primary Care Unavailable KORI, WES Tyler Primary Care Unavailable KORI, WES Tyler Primary Care Unavailable Usman MEHTA Referring Unavailable Usman MEHTA Referring Unavailable KORI, WES Tyler Primary Care Unavailable KORI, WES Tyler Primary Care Unavailable KORI, WES Tyler Primary Care Unavailable KORI, WES Tyler Referring Unavailable KORI, WES Tyler Primary Care Unavailable KORI, WES Tyler Primary Care Unavailable KORI, WES Tyler Primary Care Unavailable KORI, WES Tyler Primary Care Unavailable KORI, WES Tyler Primary Care Unavailable KORI, WES Tyler Primary Care Unavailable Usman MEHTA Referring Unavailable KORI, WES Tyler Referring [...] Unavailable KORI, WES Tyler Primary Care Unavailable Usman MEHTA Referring Unavailable KORI, WES Tyler Primary Care Unavailable Usman MEHTA Referring Unavailable KORI, WES Tyler Referring [...] [IBUPROFEN] Drug Allergy 9 Other: See Comments [facility] (20 sources) Latex; 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: [LATEX] Propensity to adverse reactions (disorder) 9 Rash [facility] (20 sources) rosuvastatin; 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: [ROSUVASTATIN CALCIUM] Drug Allergy 1 Other: See Comments [facility] (20 sources) PNEUMOC 13-CHU CONJ-DIP CR(PF); 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: [PNEUMOC 13-CHU CONJ-DIP CR(PF)] Propensity to adverse reactions (disorder) 6 Rash [facility] Medications Current Medications Medication Drug Class(es) [...] Drug Class(es) Dates Sig (Normalized) Sig (Original) [id number] 200 actuat albuterol 0.09 mg/actuat metered dose [...] sources) Long-term current use of anticoagulant; 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: [longterm (current) use of anticoagulants] Onset: 06-23-2015 06-23-2015 Episodic Other aftercare (1 source) 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; 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: [Chronic anticoagulation] [...] enzymes; 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: [Elevated alkaline phosphatase level] Onset: 10-20-2022 Episodic Other liver diseases (1 source) Hepatomegaly, [...] 72 mm[Hg] Wes Bonilla MD Work Phone: [facility] 05-10-2023 13:43-0500 Systolic blood pressure 106 mm[Hg] Wes Bonilla MD Work Phone: [facility] 05-10-2023 13:29-0500 Body height 154.9 cm Wes Bonilla MD Work Phone: [facility] 05-10-2023 13:29-0500 Body weight 56.34 kg Wes Bonilla MD Work Phone: [facility] 05-10-2023 13:29-0500 Heart rate 70 /min Wes Bonilla MD Work Phone: [facility] 05-10-2023 13:29-0500 SaO2% (BldA) [Mass fraction] 94 % Wes Bonilla MD Work Phone: [facility] 01-13-2023 18:59-0400 Body temperature 97.5 [degF] Shanta Logan APRN.INDUSTRIAL CHEMICALS SUPERVISOR Work Phone: [facility] 01-13-2023 18:59-0400 Body weight 58.6 kg Shanta Logan APRN.INDUSTRIAL CHEMICALS SUPERVISOR Work Phone: [facility] 01-13-2023 18:59-0400 Diastolic blood pressure 71 mm[Hg] Shanta Logan APRN.INDUSTRIAL CHEMICALS SUPERVISOR Work Phone: [facility] 01-13-2023 18:59-0400 Heart rate 61 /min Shanta Logan APRN.INDUSTRIAL CHEMICALS SUPERVISOR Work Phone: [facility] 01-13-2023 18:59-0400 Respiratory rate 18 /min Shanta Logan APRN.INDUSTRIAL CHEMICALS SUPERVISOR Work Phone: [facility] 01-13-2023 18:59-0400 SaO2% (BldA) [Mass fraction] 94 % Shanta Logan APRN.INDUSTRIAL CHEMICALS SUPERVISOR Work Phone: [facility] 01-13-2023 18:59-0400 Systolic blood pressure 142 mm[Hg] Shanta Logan APRN.INDUSTRIAL CHEMICALS SUPERVISOR Work Phone: [facility] 11-08-2022 15:28-0400 Body height 154.9 cm Wes Bonilla MD Work Phone: [facility] 11-08-2022 15:28-0400 Body weight 60.33 kg Wes Bonilla MD Work Phone: [facility] 11-08-2022 15:28-0400 Diastolic blood pressure 56 mm[Hg] Wes Bonilla MD Work Phone: [facility] 11-08-2022 15:28-0400 Heart rate 57 /min Wes Bonilla MD Work Phone: [facility] 11-08-2022 15:28-0400 SaO2% (BldA) [Mass fraction] 95 % Wes Bonilla MD Work Phone: [facility] 11-08-2022 15:28-0400 Systolic blood pressure 122 mm[Hg] Wes Bonilla MD Work Phone: [facility] 09-19-2022 14:08-0400 Body height 154.9 cm NA Mehta PA-C Work Phone: [facility] 09-19-2022 14:08-0400 Body weight 60.33 kg NA Mehta PA-C Work Phone: [facility] 09-19-2022 14:08-0400 Diastolic blood pressure 84 mm[Hg] NA Mehta PA-C Work Phone: [facility] 09-19-2022 14:08-0400 Heart rate 54 /min NA Mehta PA-C Work Phone: [facility] 09-19-2022 14:08-0400 SaO2% (BldA) [Mass fraction] 96 % NA Mehta PA-C Work Phone: [facility] 09-19-2022 14:08-0400 Systolic blood pressure 110 mm[Hg] NA Mehta PA-C Work Phone: [facility] 09-01-2022 14:45-0400 Body weight 59.88 kg Wes Bonilla MD Work Phone: [facility] 09-01-2022 14:45-0400 Diastolic blood pressure 62 mm[Hg] Wes Bonilla MD Work Phone: [facility] 09-01-2022 14:45-0400 Heart rate 62 /min Wes Bonilla MD Work Phone: [facility] 09-01-2022 14:45-0400 SaO2% (BldA) [Mass fraction] 96 % Wes Bonilla MD Work Phone: [facility] 09-01-2022 14:45-0400 Systolic blood pressure 122 mm[Hg] Wes Bonilla MD Work Phone: [facility] 07-28-2022 13:46-0500 Body weight 62.14 kg Wes Bonilla MD Work Phone: [facility] 07-28-2022 13:46-0500 Diastolic blood pressure 62 mm[Hg] Wes Bonilla MD Work Phone: [facility] 07-28-2022 13:46-0500 Heart rate 56 /min Wes Bonilla MD Work Phone: [facility] 07-28-2022 13:46-0500 SaO2% (BldA) [Mass fraction] 95 % Wes Bonilla MD Work Phone: [facility] 07-28-2022 13:46-0500 Systolic blood pressure 104 mm[Hg] Wes Bonilla MD Work Phone: [facility] 06-29-2022 15:29-0500 Body temperature 97.5 [degF] Shanta Logan APRN.INDUSTRIAL CHEMICALS SUPERVISOR Work Phone: [facility] 06-29-2022 15:29-0500 Body weight 62.23 kg Shanta Logan APRN.INDUSTRIAL CHEMICALS SUPERVISOR Work Phone: [facility] 06-29-2022 15:29-0500 Diastolic blood pressure 60 mm[Hg] Shanta Logan APRN.INDUSTRIAL CHEMICALS SUPERVISOR Work Phone: [facility] 06-29-2022 15:29-0500 Heart rate 90 /min Shanta Logan APRN.INDUSTRIAL CHEMICALS SUPERVISOR Work Phone: [facility] 06-29-2022 15:29-0500 Respiratory rate 21 /min Shanta Logan APRN.INDUSTRIAL CHEMICALS SUPERVISOR Work Phone: [facility] 06-29-2022 15:29-0500 SaO2% (BldA) [Mass fraction] 94 % Shanta Logan APRN.INDUSTRIAL CHEMICALS SUPERVISOR Work Phone: [facility] 06-29-2022 15:29-0500 Systolic blood pressure 132 mm[Hg] Shanta Logan APRN.INDUSTRIAL CHEMICALS SUPERVISOR Work Phone: [facility] 05-17-2022 14:25-0500 Body temperature 97.81 [degF] Shannon Chiu APRN.INDUSTRIAL CHEMICALS SUPERVISOR Work Phone: [facility] 05-17-2022 14:25-0500 Body weight 61.96 kg Shannon Chiu SALES PROMOTION OFFICER.INDUSTRIAL CHEMICALS SUPERVISOR Work Phone: [facility] 05-17-2022 14:25-0500 Diastolic blood pressure 82 mm[Hg] Shannon Aram SALES PROMOTION OFFICER.INDUSTRIAL CHEMICALS SUPERVISOR Work Phone: [facility] 05-17-2022 14:25-0500 Heart rate 58 /min Shannon Aram SALES PROMOTION OFFICER.INDUSTRIAL CHEMICALS SUPERVISOR Work Phone: [facility] 05-17-2022 14:25-0500 Respiratory rate 18 /min Shannon Aram SALES PROMOTION OFFICER.INDUSTRIAL CHEMICALS SUPERVISOR Work Phone: [facility] 05-17-2022 14:25-0500 SaO2% (BldA) [Mass fraction] 94 % Shannon Aram SALES PROMOTION OFFICER.INDUSTRIAL CHEMICALS SUPERVISOR Work Phone: [facility] 05-17-2022 14:25-0500 Systolic blood pressure 132 mm[Hg] Shannon Aram SALES PROMOTION OFFICER.INDUSTRIAL CHEMICALS SUPERVISOR Work Phone: [facility] 04-19-2022 11:57-0500 Body height 154.9 cm Wes Bonilla MD Work Phone: [facility] 04-19-2022 11:57-0500 Body weight 61.05 kg Wes Bonilla MD Work Phone: [facility] 04-19-2022 11:57-0500 Diastolic blood pressure 56 mm[Hg] Wes Bonilla MD Work Phone: [facility] 04-19-2022 11:57-0500 Heart rate 61 /min Wes Bonilla MD Work Phone: [facility] 04-19-2022 11:57-0500 SaO2% (BldA) [Mass fraction] 97 % Wes Bonilla MD Work Phone: [facility] 04-19-2022 11:57-0500 Systolic blood pressure 110 mm[Hg] Wes Bonilla MD Work Phone: [facility] 03-15-2022 14:17-0400 Body weight 59.42 kg CHAPARRITA Mehta PA-C Work Phone: [facility] 03-15-2022 14:17-0400 Diastolic blood pressure 50 mm[Hg] NA Tyson WANG-Kranthi Work Phone: [facility] 03-15-2022 14:17-0400 Heart rate 88 /min NA Mehta PA-C Work Phone: [facility] 03-15-2022 14:17-0400 Respiratory rate 20 /min NA Mehta PA-C Work Phone: [facility] 03-15-2022 14:17-0400 SaO2% (BldA) [Mass fraction] 98 % NA Mehta PA-C Work Phone: [facility] 03-15-2022 14:17-0400 Systolic blood pressure 108 mm[Hg] NA Mehta PA-C Work Phone: [facility] 03-02-2022 14:02-0400 Body temperature 97.7 [degF] Tia Most RN Work Phone: [facility] 03-02-2022 14:02-0400 Body weight 58.51 kg Tia Most RN Work Phone: [facility] 03-02-2022 14:02-0400 Diastolic blood pressure 60 mm[Hg] Tia Most RN Work Phone: [facility] 03-02-2022 14:02-0400 Heart rate 56 /min Tia Most RN Work Phone: [facility] 03-02-2022 14:02-0400 Respiratory rate 16 /min Tia Most RN Work Phone: [facility] 03-02-2022 14:02-0400 SaO2% (BldA) [Mass fraction] 96 % Tia Most RN Work Phone: [facility] 03-02-2022 14:02-0400 Systolic blood pressure 118 mm[Hg] Tia Most RN Work Phone: [facility] 02-24-2022 12:28-0400 Body temperature 97.81 [degF] Tia Most RN Work Phone: [facility] 02-24-2022 12:28-0400 Body weight 58.06 kg Tia Most RN Work Phone: [facility] 02-24-2022 12:28-0400 Diastolic blood pressure 64 mm[Hg] Tia Harding RN Work Phone: [facility] 02-24-2022 12:28-0400 Heart rate 64 /min Tia Harding RN Work Phone: [facility] 02-24-2022 12:28-0400 Respiratory rate 16 /min Tia Harding RN Work Phone: [facility] 02-24-2022 12:28-0400 SaO2% (BldA) [Mass fraction] 95 % Tiamiladys Harding RN Work Phone: [facility] 02-24-2022 12:28-0400 Systolic blood pressure 118 mm[Hg] Tia Harding RN Work Phone: [facility] 02-18-2022 13:39-0400 Diastolic blood pressure 56 mm[Hg] Manju Larson PT Work Phone: [facility] 02-18-2022 13:39-0400 Heart rate 56 /min Manju Larson PT Work Phone: [facility] 02-18-2022 13:39-0400 SaO2% (BldA) [Mass fraction] 96 % Manju Larson PT Work Phone: [facility] 02-18-2022 13:39-0400 Systolic blood pressure 120 mm[Hg] Manju Larson PT Work Phone: [facility] 02-18-2022 13:15-0400 Body temperature 97.7 [degF] Manju Larson PT Work Phone: [facility] 02-18-2022 13:15-0400 Body weight 58.06 kg Manju Larson PT Work Phone: [facility] 02-18-2022 13:15-0400 Respiratory rate 16 /min Manju Larson PT Work Phone: [facility] 02-15-2022 13:35-0400 Body temperature 97.5 [degF] Tia RN Work Phone: [facility] 02-15-2022 13:35-0400 Body weight 58.51 kg Gemma Carter ACCOUNTANT MANAGER Work Phone: [facility] 02-15-2022 13:35-0400 Diastolic blood pressure 52 mm[Hg] Tiamiladys Harding RN Work Phone: [facility] 02-15-2022 13:35-0400 Heart rate 60 /min Tiamiladys Harding RN Work Phone: [facility] 02-15-2022 13:35-0400 Respiratory rate 16 /min Tiamiladys Harding RN Work Phone: [facility] 02-15-2022 13:35-0400 SaO2% (BldA) [Mass fraction] 95 % Tia RN Work Phone: [facility] 02-15-2022 13:35-0400 Systolic blood pressure 118 mm[Hg] Tia RN Work Phone: [facility] 02-15-2022 13:10-0400 Heart rate 60 /min Gemma Carter ACCOUNTANT MANAGER Work Phone: [facility] 02-15-2022 13:10-0400 SaO2% (BldA) [Mass fraction] 95 % Gemma Carter ACCOUNTANT MANAGER Work Phone: [facility] 02-15-2022 13:00-0400 Body temperature 97.7 [degF] Gemma Carter ACCOUNTANT MANAGER Work Phone: [facility] 02-15-2022 13:00-0400 Diastolic blood pressure 58 mm[Hg] Gemma Carter ACCOUNTANT MANAGER Work Phone: [facility] 02-15-2022 13:00-0400 Respiratory rate 18 /min Gemma Carter ACCOUNTANT MANAGER Work Phone: [facility] 02-15-2022 13:00-0400 Systolic blood pressure 110 mm[Hg] Gemma Carter ACCOUNTANT MANAGER Work Phone: [facility] 02-11-2022 11:00-0400 Body weight 58.06 kg Manju SteinhunterSebastian PT Work Phone: [facility] 02-11-2022 11:00-0400 Heart rate 60 /min Manju Larson PT Work Phone: [facility] 02-11-2022 11:00-0400 SaO2% (BldA) [Mass fraction] 88 % Manju Larson PT Work Phone: [facility] 02-11-2022 10:50-0400 Body temperature 98.2 [degF] Manju Larson PT Work Phone: [facility] 02-11-2022 10:50-0400 Diastolic blood pressure 60 mm[Hg] Manju Larson PT Work Phone: [facility] 02-11-2022 10:50-0400 Respiratory rate 16 /min Manju SaritahunterSebastian PT Work Phone: [facility] 02-11-2022 10:50-0400 Systolic blood pressure 128 mm[Hg] Manju SteinhunterSebastian PT Work Phone: [facility] 02-09-2022 12:29-0400 Body temperature 98.01 [degF] Maureen Bowser RN Work Phone: [facility] 02-09-2022 12:29-0400 Body weight 59.88 kg Maureen Bowser RN Work Phone: [facility] 02-09-2022 12:29-0400 Diastolic blood pressure 58 mm[Hg] Maureen Bowser RN Work Phone: [facility] 02-09-2022 12:29-0400 Heart rate 58 /min Maureen Bowser RN Work Phone: [facility] 02-09-2022 12:29-0400 Respiratory rate 20 /min Maureen Bowser RN Work Phone: [facility] 02-09-2022 12:29-0400 SaO2% (BldA) [Mass fraction] 94 % Maureen Bowser RN Work Phone: [facility] 02-09-2022 12:29-0400 Systolic blood pressure 128 mm[Hg] Maureen Bowser RN Work Phone: [facility] 01-14-2022 13:32-0400 Body weight 60.33 kg Dalila Haagen SALES PROMOTION OFFICER.INDUSTRIAL CHEMICALS SUPERVISOR Work Phone: [facility] 01-14-2022 13:32-0400 Diastolic blood pressure 60 mm[Hg] Dalila Haagen SALES PROMOTION OFFICER.INDUSTRIAL CHEMICALS SUPERVISOR Work Phone: [facility] 01-14-2022 13:32-0400 Heart rate 52 /min Dalila Haagen SALES PROMOTION OFFICER.INDUSTRIAL CHEMICALS SUPERVISOR Work Phone: [facility] 01-14-2022 13:32-0400 Respiratory rate 18 /min Dalila Haagen SALES PROMOTION OFFICER.INDUSTRIAL CHEMICALS SUPERVISOR Work Phone: [facility] 01-14-2022 13:32-0400 SaO2% (BldA) [Mass fraction] 95 % Dalila Haagen SALES PROMOTION OFFICER.INDUSTRIAL CHEMICALS SUPERVISOR Work Phone: [facility] 01-14-2022 13:32-0400 Systolic blood pressure 110 mm[Hg] Dalila Haagen SALES PROMOTION OFFICER.INDUSTRIAL CHEMICALS SUPERVISOR Work Phone: [facility] 10-04-2021 15:00-0400 Heart rate 60 /min Wes Bonilla MD Work Phone: [facility] 10-04-2021 14:36-0400 Body weight 59.42 kg Wes Bonilla MD Work Phone: [facility] 10-04-2021 14:36-0400 Diastolic blood pressure 76 mm[Hg] Wes Bonilla MD Work Phone: [facility] 10-04-2021 14:36-0400 Respiratory rate 16 /min Wes Bonilla MD Work Phone: [facility] 10-04-2021 14:36-0400 SaO2% (BldA) [Mass fraction] 96 % Wes Bonilla MD Work Phone: [facility] 10-04-2021 14:36-0400 Systolic blood pressure 118 mm[Hg] Wes Bonilla MD Work Phone: [facility] Encounters Encounter Date Encounter Type Care Provider Facility Start: 06-09-2023 End: 06-09-2023 ambulatory WES BONILLA Facility:[facility] Start: 05-25-2023 End: 05-25-2023 ambulatory Jolene Osuna RN Building Serviceman Man agement Procedures Date Procedure Procedure Detail Performing Clinician Start: 10-20-2022 Bone &/joint imaging whole body Usman WANG-C Work Phone: Start: 09-19-2022 H/O: hysterectomy History of hysterectomy NA Tyson PA-C Work Phone: Start: 09-19-2022 H/O: surgery [...] 01-14-2022 Adult depression screening assessment Dalila Jensen APRN.CNP Work Phone: Start: 09-16-2021 PROTHROMBIN TIME/PT [facility] Start: 08-25-2021 INR in Platelet poor plasma by Coagulation assay [facility] Start: 08-02-2021 PROTHROMBIN TIME/PT [facility] Provider Start: 05-11-2021 Adult depression screening assessment Wes Bonilla MD Work Phone: Start: 10-16-2014 Colonoscopy Wes Bonilla MD Work Phone: Plan of Treatment Date Care Activity Detail Author Start: 05-10-2026 Diabetes Screening Diabetes Screenin g [facility] Start: 04-02-2026 LIPID SCREEN LIPID SCREEN [facility] Start: 11-08-2025 DIABETES SCREEN DIABETES SCREEN [facility] Start: 11-08-2025 Diabetes Screening Diabetes Screenin g [facility] Start: 09-19-2025 DIABETES SCREEN DIABETES SCREEN [facility] Start: 07-20-2025 Urine microalbumin profile [facility] Start: 05-05-2025 DIABETES SCREEN DIABETES SCREEN [facility] Start: 04-19-2025 DIABETES SCREEN DIABETES SCREEN [facility] Start: 02-11-2025 DIABETES SCREEN DIABETES SCREEN [facility] Start: 02-03-2025 DIABETES SCREEN DIABETES SCREEN [facility] Start: 10-18-2024 DIABETES SCREEN DIABETES SCREEN [facility] Start: 10-04-2024 DIABETES SCREEN DIABETES SCREEN [facility] Start: 08-25-2024 DIABETES SCREEN DIABETES SCREEN [facility] Start: 05-10-2024 Annual PCP Team [employer] gennaro Disease Visit Annual PCP Team Chronic Disease Visit [facility] Start: 05-10-2024 BP Controlled (<130/80) BP Controlle d (<130/80) [facility] Start: 05-10-2024 Creatinine measurement Serum Creatin ine [facility] Start: 05-10-2024 RSV Vaccine (1 - 1-d ose 60+ series) RSV Vaccine (1 - 1-dose 60+ series) [facility] Immunizations Immunization Date Immunization Notes Care Provider Fa delvisty 05-08-2018 influenza virus vacc ine, unspecified formulation Wes Bonilla MD Work Phone: [facility] 07-20-2015 pneumococcal conjuga te vaccine, 13 valent Wes Bonilla MD Work Phone: [facility] 07-20-2015 tetanus toxoid, redu perlita diphtheria toxoid, and acellular pertussis vaccine, adsorbed Wes Bonilla MD Work Phone: [facility] 04-16-2014 influenza, high dose seasonal, preservative-free Wes Bonilla MD Work Phone: [facility] 08-15-2011 pneumococcal polysaccharide vaccine, 23 valent Wes Bonilla MD Work Phone: [facility] Payers Date Payer Category Payer Medicaid [facility] MEDICAID MYC ARE [facility] MEDICAID [id number] 2022-Present [phone] [address] [place] [address] Medicaid [id number] 2022 Medicare [id number] 2021 Medicare [id number] 2021 Medicare [employer] MEDICARE [employer] MEDICARE PPO [id number] 2021-Present [phone] [address] [address] [place] [address] PPO [id number] 2016 Medicare [id number] Social History Date Type Detail Facility Start: 01-14-2022 Tobacco smoking stat [facility] Never smoked tobacco [facility] Work Phone: Start: 08-25-2021 End: 05-10-2023 Alcohol intake Current non-drinker of alcohol (finding) [facility] Start: 1945 Sex Assigned At Not on file [facility] Start: 08-15-2021 End: 04-19-2022 Exposure to SARS-CoV-2 (event) Not sure [facility] Start: 01-14-2022 Tobacco use and exposure Smokeless tobacco non-user [facility] Start: 01-14-2022 Tobacco Comment Spouse smoked cigars in home until about 2003. [facility] Start: 02-02-2022 History SDOH Financial 5 [facility] Start: 02-02-2022 History SDOH Food Worry 1 [facility] Start: 02-02-2022 History SDOH Transpo rt Med 2 [facility] Start: 10-13-2022 End: 11-08-2022 History of Social function [facility] Start: 10-13-2022 End: 11-08-2022 Tobacco use panel [facility] How hard is it for y ou to pay for the very basics like food, housing, medical care, and heating Not hard at all [facility] (I/We) worried wheth er (my/our) food would run out before (I/we) got money to buy more. Never true [facility] In the past 12 month s, was there a time when you were not able to pay the mortgage or rent on time? No [facility] Goals Date Patient Goal Desired Activity /State Personal health goal Clinical Notes 03-23-2020 to 05-25-2023 Jolene Osuna RN - 05/25/2023 11:47 AM Jason Alford DO - 05/12/2023 4:40 PM Yanely Sol RN - 05/12/2023 1:43 PM Wes Mejía MD - 05/10/2023 1:29 PM EST Note Date & Type Note Facility 05-25-2023 History of Presen t illness Narrative [facility] Telephonic Outreach Provider Action/FYI Patient's jazmine and patient is tyring to navigate emotional and financial situation. Patient declines need for SW or BHSW at this time. Contacted for: Routine Telephonic [...] more often than normal? No Based on physical therapy attendant, the following disposition is advised: No symptoms or symptoms present, not severe. Routed to: No Action Needed FAVIOLA Education Provided this Outreach: No Jolene Osuna RN May 25, 2023 11:51 AM documented in this encounter [facility] 05-12-2023 History of Presen t illness Narrative Agree with below Jason Gallegos DO patient had inr completed at [facility] patients inr is 2.3 (patients inr range [...] follow up INR. documented in this encounter [facility] 05-11-2023 Miscellaneous Notes Patient notified. She will [...] attack? The 10-year ASCVD risk score (Maikel LEON, et al., 2019) is: 18.3% Values used to calculate the score: Age: 77 years Sex: Female Is Non- : No Diabetic: No Tobacco smoker: No Systolic Blood Pressure: 106 mmHg Is BP treated: Yes HDL Cholesterol: 54 mg/dL Total Cholesterol: 216 mg/dL documented in this encounter [facility] 05-10-2023 Miscellaneous Notes First call made to reschedule tomorrow's appointment with Jannet Yoselin @ 2:30 PM, [facility]. Heena Davidson May 10, 2023 3:06 PM documented in this encounter [facility] 05-10-2023 History of Presen t illness Narrative [...] mata's. He recommended she follow with a building superintendent. She has not done that. Continues on [...] Moderate mitral regurgitation 06/18/2021 04/27/21 Echo at [facility]. Pleural effusion, right 05/05/2020 CXR 11/18/19 and [...] - had extensive mata's and surgery at [facility] recommended she obtain follow up with [...] in six months. documented in this encounter [facility] 05-05-2023 Miscellaneous Notes Call to pt and [...] Rachelle Villa Ma documented in this encounter [facility] 05-03-2023 Miscellaneous Notes Patient notified and verbalizes [...] or narrative: no documented in this encounter [facility] 05-01-2023 Miscellaneous Notes [facility] will get for patient this evening please file. Nimisha is notified and will go get it tonight. Patient calling back to say [facility] called local pharmacies for her and there is no Vitamin K in stock in the [place] area. Airam Ayon RN agree Patient calling to say [facility] tells her they do not have any Vitamin K in stock. They have to order it to have it available tomorrow. She is going to contact Altagrac[facility] and Yeison [facility] to see if either pharmacy has the medication in stock tonight. Airam Ayon RN documented in this encounter [facility] 05-01-2023 Miscellaneous Notes Patient notified and verbalizes understanding. Did confirm that she was taking the 4mg on / and 2mg all other days. INR is elevated at 6.6. call if any bleeding issues. Hold coumadin. Vit k sent in to take today. Recheck inr in am. documented in this encounter [facility] 04-11-2023 Note HNO ID: [id number] Author: Jolene Osuna, RN Service: ? Author Type: Registered Nurse Type: Progress Notes Filed: 04/11/2023 5:26 PM Note Text: [facility] Telephonic Outreach Provider Action/FYI Contacted for: Routine [...] more often than normal? No Based on physical therapy attendant, the following disposition is advised: No symptoms or symptoms present, not severe. Routed to: No Action Needed FAVIOLA Education Provided this Outreach: No Jolene Osuna RN April 11, 2023 5:25 PM [facility] 04-11-2023 History of Presen t illness Narrative [facility] Telephonic Outreach Provider Action/FYI Contacted for: Routine [...] more often than normal? No Based on physical therapy attendant, the following disposition is advised: No symptoms or symptoms present, not severe. Routed to: No Action Needed FAVIOLA Education Provided this Outreach: No Jolene Osuna RN April 11, 2023 5:25 PM documented in this encounter [facility] 04-11-2023 Note Patient Outreach ([facility]) NIMISHA CEJA ([id number]) 1945 F Date Time Provider Department 04/11/23 JOLENE OSUNA AM[facility] During your visit today, we recorded the following information about you: Jolene Osuna RN 04/11/2023 5:26 PM Signed M Telephonic Outreach Provider Action/FYI Contacted for: Routine [...] more often than normal? No Based on physical therapy attendant, the following disposition is advised: No symptoms or symptoms present, not severe. Routed to: No Action Needed FAVIOLA Education Provided this Outreach: No Jolene Osuna RN April 11, 2023 5:25 PM Allergies [...] FORTICAL) 200 unit/actuation nasal spray Use 1 [place] in the nose once daily. - Back [...] [J90] 05/05/2020 11/08/2022 (more content not included)... [facility] 03-30-2023 Note HNO ID: [id number] Author: Wes oBnilla MD Service: ? Author Type: Physician Type: Progress Notes Filed: 03/30/2023 4:35 PM Note Text: agree [facility] 03-30-2023 History of Presen t illness Narrative agree patient had inr completed at [facility] patients inr is 2.2 (patients inr ranges [...] follow up INR. documented in this encounter [facility] 03-30-2023 Note HNO ID: [id number] Author: Yanely Posadas RN Service: ? Author Type: ? Type: Progress Notes Filed: 03/30/2023 4:35 PM Note Text: patient had inr completed at [facility] patients inr is 2.2 (patients inr ranges [...] 4 weeks (04/26/23) for follow up INR. [facility] 03-30-2023 Miscellaneous Notes patients orders for coumadin clinic inr's has at this time. new order has been pended for approval if possible so that patient can continue to get inr's completed thru the coumadin clinic. coumadin clinic nurse only needs called if order can not be approved. documented in this encounter [facility] 03-15-2023 Note Patient Outreach ([facility]) NIMISHA CEJA ([id number]) 1945 F Date Time Provider Department 03/15/23 JOLENE OSUNANiki During your visit today, we recorded the following information about you: Jolene Osuna, RN 03/15/2023 9:17 AM Signed CDM Telephonic Outreach Provider Action/FYI Contacted [...] more often than normal? No Based on physical therapy attendant, the following disposition is advised: No symptoms or symptoms present, not severe. Routed to: No Action Needed FAVIOLA Education Provided this Outreach: No Jolene Osuna RN March 15, 2023 9:13 AM Allergies [...] FORTICAL) 200 unit/actuation nasal spray Use 1 [place] in the nose once daily. - CALCIUM [...] [J90] 05/05/2020 11/09/19 (more content not included)... [facility] 03-15-2023 Note HNO ID: [id number] Author: Jolene Osuna, RN Service: ? Author Type: Registered Nurse Type: Progress Notes Filed: 03/15/2023 9:17 AM Note Text: [facility] Telephonic Outreach Provider Action/FYI Contacted for: Routine [...] more often than normal? No Based on physical therapy attendant, the following disposition is advised: No symptoms or symptoms present, not severe. Routed to: No Action Needed FAVIOLA Education Provided this Outreach: No Jolene Osuna RN March 15, 2023 9:13 AM [facility] 03-15-2023 History of Presen t illness Narrative [facility] Telephonic Outreach Provider Action/FYI Contacted for: Routine [...] more often than normal? No Based on physical therapy attendant, the following disposition is advised: No symptoms or symptoms present, not severe. Routed to: No Action Needed FAVIOLA Education Provided this Outreach: No Jolene Osuna RN March 15, 2023 9:13 AM documented in this encounter [facility] 03-14-2023 Note HNO ID: [id number] Author: Wes Bonilla MD Service: ? Author Type: Physician Type: Progress Notes Filed: 03/14/2023 2:22 PM Note Text: agree [facility] 03-14-2023 Note HNO ID: [id number] Author: Yanely Posadas RN Service: ? Author Type: ? Type: Progress Notes Filed: 03/14/2023 2:22 PM Note Text: patient had inr completed at [facility] patients inr is 2.1 (patients inr [...] - pt request) for follow up INR. [facility] 03-14-2023 History of Presen t illness Narrative agree patient had inr completed at [facility] patients inr is 2.1 (patients inr [...] follow up INR. documented in this encounter [facility] 02-27-2023 Miscellaneous Notes Call to pt and [...] with VKA drugs, such as warfarin, the [employer] 2012 Guideline recommends [...] to 3.5 (target INR of 3). Marla GH, et al. Chest 2012, 141:7S-47S Les RA, et al. [facility] 2017, 70: 252-289 documented in this encounter [facility] 02-23-2023 Miscellaneous Notes Patient informed and verbalized [...] Jennifer Kimball Ma documented in this encounter [facility] 02-22-2023 Miscellaneous Notes Pt called and she is almost out of Warfarin and is in need of a short term sent to [facility] and the termination clerk to [facility]. Patient has been identified by name and [...] Briana Segura LPN documented in this encounter [facility] 02-21-2023 Miscellaneous Notes Pt called and is notified of providers message and instructions. Pt voices understanding. Yolis Tran RN Still low. 6 mg today, then resume 4 mg a day. Recheck on Last INR: PT INR 1.4 02/20/2023 Current dose of coumadin is: 4 mg daily. Previous INR (date and result): 1.2 02/17/23 Additional Clinical Information or narrative: no documented in this encounter [facility] 02-18-2023 Miscellaneous Notes Patient notified of message [...] restart day after. documented in this encounter [facility] 02-17-2023 History of Presen t illness Narrative [facility] Telephonic Outreach Provider Action/FYI Contacted for: Routine [...] more often than normal? No Based on physical therapy attendant, the following disposition is advised: No symptoms or symptoms present, not severe. Routed to: No Action Needed FAVIOLA Education Provided this Outreach: No Jolene Osuna RN February 17, 2023 10:33 AM [facility] Telephonic Outreach Provider Action/FYI Contacted for: Routine Telephonic Outreach Contact made with patient: No, left message. Jolene Osuna RN February 14, 2023 10:33 AM documented in this encounter [facility] 02-15-2023 Miscellaneous Notes Patient called and notified [...] Deana Coleman RN documented in this encounter [facility] 02-10-2023 Miscellaneous Notes Spoke to patient and [...] a colonoscopy with Dr[facility] Abimael [facility] on 02-14-23. Pt has been instructed to not take her coumadin starting tonight thru 02-14-23. Pt asking what you would like her to do. Does she need to come into day to get an INR done at the lab? Please advise pt. Briana Segura LPN documented in this encounter [facility] 01-27-2023 Note HNO ID: [id number] Author: Wes Bonilla MD Service: ? Author Type: Physician Type: Progress Notes Filed: 01/27/2023 1:27 PM Note Text: agree [facility] 01-27-2023 History of Presen t illness Narrative agree patient had inr completed at [facility] patients inr is 3.0 (patients inr range [...] since dose change documented in this encounter [facility] 01-27-2023 Miscellaneous Notes Patient reports she was dx with shingles on neck/upper back in EC 8-11. Reports continues to have blisters but they also appear inside left elbow and on wrist. No seeping. No improvement since they started on 8. Patient declined offer for same day appt, since will be at lab at 1 pm for INR will just return to at that time. Reason for Disposition [1] [...] Around 01-10-23. 3 days before went to 4. ITCHING: At night severe. During day mild. 5. PAIN: Moderate pain. 6. OTHER SYMPTOMS: No fever. No other symptoms 7. : No. Post [place]. Protocols used: Shingles (Zoster)-ADULT-AH documented in this encounter [facility] 01-23-2023 Miscellaneous Notes TC to patient who verbalized understanding and has no questions at this time. HEIDI Fajardo Let her know her repeat labs are ok. documented in this encounter [facility] 01-20-2023 Note HNO ID: [id number] Author: Yanely Posadas RN Service: ? Author Type: ? Type: Progress Notes Filed: 01/20/2023 4:22 PM Note Text: PATIENT NOTIFIED OF INFORMATION [facility] 01-20-2023 Note HNO ID: [id number] Author: Wes Bonilla MD Service: ? Author Type: Physician Type: Progress Notes Filed: 01/20/2023 2:45 PM Note Text: agree [facility] 01-20-2023 History of Presen t illness Narrative PATIENT NOTIFIED OF INFORMATION agree patient had inr completed at [facility] patients inr is 3.3 (patients inr range [...] advise on recommendation documented in this encounter [facility] 01-20-2023 Note HNO ID: [id number] Author: Yanely Posadas RN Service: ? Author Type: ? Type: Progress Notes Filed: 01/20/2023 2:45 PM Note Text: patient had inr completed at [facility] patients inr is 3.3 (patients inr range [...] 01/27/23 please review and advise on recommendation [facility] 01-17-2023 Miscellaneous Notes Scheduled with kori [...] Gillian Holbrook LPN documented in this encounter [facility] 01-16-2023 Note Patient Outreach ([facility]) NIMISHA CEJA ([id number]) 1945 F Date Time Provider Department 01/16/23 JOLENE OSUNA During your visit today, we recorded the following information about you: Jolene Osuna, RN 01/16/2023 11:07 AM Signed CDM Telephonic Outreach Provider Action/CHILANGOI Breaking out on arm and upper back - [facility] diagnosed shingles. She is currently taking medication valacyclovir. She will continue to monitor and call if symptoms are same or worsening over the next couple days. At this time she feels symptoms are the same. Patient had EGD at [place] set up from 02/14. Contacted for: Routine [...] more often than normal? No Based on physical therapy attendant, the following disposition is advised: No symptoms or symptoms present, not severe. Routed to: No Action Needed FAVIOLA Education Provided this Outreach: No Jolene Osuna RN January 16, 2023 10:53 AM Allergies [...] FORTICAL) 200 unit/actuation nasal spray Use 1 [place] in the nose once daily. - Back [...] Fatigue [R53.83] 11/04 (more content not included)... [facility] 01-16-2023 Note HNO ID: [id number] Author: Jolene Osuna RN Service: ? Author Type: Registered Nurse Type: Progress Notes Filed: 01/16/2023 11:07 AM Note Text: CDM Telephonic Outreach Provider Action/CHILANGOI Breaking out on arm and upper back - [facility] diagnosed shingles. She is currently taking medication valacyclovir. She will continue to monitor and call if symptoms are same or worsening over the next couple days. At this time she feels symptoms are the same. Patient had EGD at [place] set up from 02/14. Contacted for: Routine [...] more often than normal? No Based on physical therapy attendant, the following disposition is advised: No symptoms or symptoms present, not severe. Routed to: No Action Needed FAVIOLA Education Provided this Outreach: No Jolene Osuna RN January 16, 2023 10:53 AM [facility] 01-16-2023 History of Presen t illness Narrative [facility] Telephonic Outreach Provider Too/CAROLYN Breaking out on arm and upper back - [facility] diagnosed shingles. She is currently taking medication valacyclovir. She will continue to monitor and call if symptoms are same or worsening over the next couple days. At this time she feels symptoms are the same. Patient had EGD at [place] set up from 02/14. Contacted for: Routine [...] more often than normal? No Based on physical therapy attendant, the following disposition is advised: No symptoms or symptoms present, not severe. Routed to: No Action Needed FAVIOLA Education Provided this Outreach: No Jolene Osuna RN January 16, 2023 10:53 AM documented in this encounter [facility] 01-14-2023 Miscellaneous Notes Patient notified of results, verbalized understanding of instructions given. Heena Lynch MA Please let patient know that culture did confirm shingles. Finish medication as discussed at visit. Follow up with Dr. Bonilla as needed. Shannon Chiu APRN.TRICIA documented in this encounter [facility] 01-13-2023 Note HNO ID: [id number] Author: Shanta Logan APRN.TRICIA Service: ? Author [...] history is provided by the patient. No educational interpreter was used. Rash Review of Systems Constitutional: Negative. Skin: Positive for rash. Objective Physical Exam Constitutional: Appearance: Normal appearance. Pulmonary: Effort: Pulmonary effort is normal. Skin: Neurological: Mental Status: She is alert. PAST MEDICAL HISTORY Diagnosis Date A-fib (HCC) Class 1 congestive heart failure, unspecified failure chronicity, systolic (HCC) 11/21/2019 Dysphagia, unspecified(787.20) Esophageal reflux Esophagitis, unspecified Marfan's syndrome Moderate mitral regurgitation 06/18/2021 04/27/21 Echo at [facility]. Pleural effusion, right 05/05/2020 CXR 11/18/19 and [...] FORTICAL) 200 unit/actuation nasal spray Use 1 [place] in the nose once daily. Back Brace [...] be get worse not better. Shanta Logan APRN.[facility] 01-13-2023 History of Presen t illness Narrative [...] history is provided by the patient. No educational interpreter was used. Rash Review of Systems Constitutional: Negative. Skin: Positive for rash. Objective Physical Exam Constitutional: Appearance: Normal appearance. Pulmonary: Effort: Pulmonary effort is normal. Skin: Neurological: Mental Status: She is alert. PAST MEDICAL HISTORY Diagnosis Date A-fib ([facility]) Class 1 congestive heart failure, unspecified failure chronicity, systolic ([facility]) 11/21/2019 Dysphagia, unspecified(787.20) Esophageal reflux Esophagitis, unspecified Marfan's syndrome Moderate mitral regurgitation 06/18/2021 04/27/21 Echo at [facility]. Pleural effusion, right 05/05/2020 CXR 11/18/19 and [...] FORTICAL) 200 unit/actuation nasal spray Use 1 [place] in the nose once daily. Back Brace [...] be get worse not better. Shanta Logan APRN.[employer] documented in this encounter [facility] 01-13-2023 Miscellaneous Notes Pt calling in and [...] possible. Pt agreeable. documented in this encounter [facility] 01-04-2023 Miscellaneous Notes Pharmacist from [facility] calling and requesting refills on medication. Called and spoke with patient, patient switched to [facility] pharmacy and does need refills. Last Office Visit: 11/08/2022 Future Office Visit: 05/10/2023 Requested Prescriptions Pending Prescriptions Disp Refills omeprazole (PRILOSEC) 40 mg capsule 90 capsule 3 Sig: Take 1 capsule by mouth once daily. Date of Last Labs: 12/23/2022 documented in this encounter [facility] 12-23-2022 Note HNO ID: [id number] Author: Wes Bonilla MD Service: ? Author Type: Physician Type: Progress Notes Filed: 12/23/2022 1:53 PM Note Text: agree [facility] 12-23-2022 Note HNO ID: [id number] Author: Yanely Posadas RN Service: ? Author Type: ? Type: Progress Notes Filed: 12/23/2022 1:53 PM Note Text: patient had inr completed at [facility] patients inr is 2.1 (patients inr range is 2.0-3.0) patient is currently taking 4mg Tues,Thurs Sun and 2mg all other days patients last dose change was on 12/02/22 due to a high level of 3.4 (dose at that time was 2mg Mon,Wed,Mon and 4mg all other days) patient has [...] 4 weeks (01/20/23) for follow up INR. [facility] 12-16-2022 Note HNO ID: [id number] Author: Michelle Rocha RN Service: ? Author [...] an appointment with Dr. Evans, surgeon at [facility] on 12/22.It is due to the [...] more often than normal? No Based on physical therapy attendant, the following disposition is advised: No symptoms or symptoms present, not severe. Routed to: No Action Needed FAVIOLA Education Provided this Outreach: No Michelle Rocha RN December 16, 2022 12:24 PM [facility] 12-15-2022 Note Patient Outreach ([facility]) NIMISHA CEJA ([id number]) 1945 F Date Time Provider Department 12/15/22 [...] an appointment with Dr. Evans, surgeon at [facility] on 12/22.It is due to the [...] more often than normal? No Based on physical therapy attendant, the following disposition is advised: No symptoms [...] FORTICAL) 200 unit/actuation nasal spray Use 1 [place] in the nose once daily. - Back [...] 06/23/2015 Chronic anticoagul (more content not included)... [facility] 12-08-2022 Note HNO ID: [id number] Author: Wes Bonilla MD Service: ? Author Type: Physician Type: Progress Notes Filed: 12/08/2022 2:58 PM Note Text: agree [facility] 12-08-2022 Note HNO ID: [id number] Author: Yanely Posadas RN Service: ? Author Type: ? Type: Progress Notes Filed: 12/08/2022 2:58 PM Note Text: patient had inr completed at [facility] patients inr is 2.7 (patients inr range [...] the first normal reading after dose change [facility] 12-08-2022 History of Presen t illness Narrative agree patient had inr completed at [facility] patients inr is 2.7 (patients inr range [...] after dose change documented in this encounter [facility] 12-02-2022 Note HNO ID: [id number] Author: Rachelle Villa Ma Service: ? Author Type: ? Type: Progress Notes Filed: 12/02/2022 3:09 PM Note Text: Patient was notified and verbalized understanding Tracker updated Rachelle Villa Ma [facility] 12-02-2022 Note HNO ID: [id number] Author: Wes Bonilla MD Service: ? Author Type: Physician Type: Progress Notes Filed: 12/02/2022 3:09 PM Note Text: Hold today, then change to 2 mg a day, except 4 mg on Mon, , TH. Recheck one week [facility] 12-02-2022 Note HNO ID: [id number] Author: Rachelle Villa Ma Service: ? Author Type: ? Type: Progress Notes Filed: 12/02/2022 3:09 PM Note Text: patient had inr completed at [facility] patients inr is 3.4 (patients inr range is 2.0-3.0) patient is currently taking 2mg Mon,Wed,Fri and 4mg all other days patients last dose change was on 11/08/22 due to a low level of 1.5 (dose at that time was 4mg Tu,Th,Sat and 2mg all other days) patient has [...] 1 week follow up inr on 12/08/22 [facility] 12-02-2022 History of Presen t illness Narrative Patient was notified and verbalized understanding Tracker updated Rachelle Villa Ma Hold today, then change to 2 mg a day, except 4 mg on Mon, , TH. Recheck one week patient had inr completed at [facility] patients inr is 3.4 (patients inr range is 2.0-3.0) patient is currently taking 2mg Mon,Wed,Mon and 4mg all other days patients last dose change was on 11/08/22 due to a low level of 1.5 (dose at that time was 4mg ,,Sat and 2mg all other days) patient has [...] inr on 12/08/22 documented in this encounter [facility] 11-24-2022 Note HNO ID: [id number] Author: Elisabeth Bettencourt Ma Service: ? Author Type: ? Type: Progress Notes Filed: 11/24/2022 3:04 PM Note Text: Detailed message left on pt machine. Elisabeth Bettencourt Ma [facility] 11-24-2022 Note HNO ID: [id number] Author: Eddie Nunez MD Service: ? Author Type: Physician Type: Progress Notes Filed: 11/24/2022 3:02 PM Note Text: INR slightly high on current dosage. No change. Recheck in 1 week. [facility] 11-24-2022 Note HNO ID: [id number] Author: Yanely Posadas RN Service: ? Author Type: ? Type: Progress Notes Filed: 11/24/2022 3:04 PM Note Text: patient had inr completed at [facility] patients inr is 3.2 (patients inr range [...] 1 week follow up inr on 12/02/22 [facility] 11-24-2022 History of Presen t illness Narrative Detailed message left on pt machine. Elisabeth Bettencourt Ma INR slightly high on current dosage. No change. Recheck in 1 week. patient had inr completed at [facility] patients inr is 3.2 (patients inr range [...] inr on 12/02/22 documented in this encounter [facility] 11-08-2022 Note HNO ID: [id number] Author: Wes Bonilla MD Service: ? Author Type: Physician Type: Progress Notes Filed: 11/08/2022 3:57 PM Note Text: Instructed to increase to 4 mg T, TH, Sat, Monday, 2 mg a day rest of the week. Recheck one week. Patient notified in office. [facility] 11-08-2022 Note HNO ID: [id number] Author: Wes Bonilla MD Service: ? Author [...] thyroid, Dr. Mariee for her lungs and [place] for her heart. Bone scan done. [...] Abs Lymph 1.00 - 4.00 k/uL 1.82 [place]% % 14.5 Abs [place] <0.87 k/uL 1.44 (H) Eosin% % 1.4 [...] Negative Ketones, Urine Trace, Negative Negative Specific [place], Ur 1.005 - 1.030 1.014 Hemoglobin/Blood,Ur Negative, Trace Negative pH, Urine 5.0 - 8.0 6.5 Protein, Urine Trace, Negative Negative Urobilinogen Negative Negative Nitrites Negative Negative Leukest Negative, 25 Randla/uL Negative Lipase 16 - 61 U/L 42 CRP <0.9 mg/dL 0.6 MEDICATIONS: Current Outpatient Medications Medication Sig warfarin (COUMADIN) 4 mg tablet 4 mg on Monday and , 2 mg all other days gabapentin (NEURONTIN) 100 mg capsule Take 1 capsule by mouth twice daily for 180 days. calcitonin,salmon, (MIACALCIN, FORTICAL) 200 unit/actuation nasal spray Use 1 [place] in the nose once daily. Back Brace [...] current facility-administered medi (more content not included)... [facility] 11-08-2022 Note HNO ID: [id number] Author: Yanely Posadas RN Service: ? Author Type: ? Type: Progress Notes Filed: 11/08/2022 3:57 PM Note Text: patient had inr completed at [facility] patients inr is 1.5 (patients inr range [...] 2 week follow up inr on 11/22/22 [facility] 11-08-2022 History of Presen t illness Narrative Instructed to increase to 4 mg T, TH, Mon, Monday, 2 mg a day rest of the week. Recheck one week. Patient notified in office. patient had inr completed at [facility] patients inr is 1.5 (patients inr range [...] inr on 11/22/22 documented in this encounter [facility] 11-08-2022 History of Presen t illness [...] thyroid, Dr. Mariee for her lungs and [facility] for her heart. Bone scan done. [...] Abs Lymph 1.00 - 4.00 k/uL 1.82 [place]% % 14.5 Abs [place] <0.87 k/uL 1.44 (H) Eosin% % 1.4 [...] Negative Ketones, Urine Trace, Negative Negative Specific [place], Ur 1.005 - 1.030 1.014 Hemoglobin/Blood,Ur Negative, [...] FORTICAL) 200 unit/actuation nasal spray Use 1 [place] in the nose once daily. Back Brace [...] rash. PAST MEDICAL HISTORY Diagnosis Date A-fib ([facility]) Class 1 congestive heart failure, unspecified failure chronicity, systolic ([facility]) 11/21/2019 Dysphagia, unspecified(787.20) Esophageal reflux Esophagitis, unspecified Marfan's syndrome Moderate mitral regurgitation 06/18/2021 04/27/21 Echo at [facility]. Pleural effusion, right 05/05/2020 CXR 11/18/19 and [...] Wes Bonilla MD documented in this encounter [facility] 10-27-2022 Note HNO ID: [id number] Author: Cadence Bustillo LPN Service: ? Author Type: ? Type: Progress Notes Filed: 10/27/2022 3:00 PM Note Text: Patient notified and reads back instructions. [facility] 10-27-2022 Note HNO ID: [id number] Author: Wes Bonilla MD Service: ? Author Type: Physician Type: Progress Notes Filed: 10/27/2022 3:00 PM Note Text: Change to 4 mg T, TH, Sat. 2 mg a day rest of the week. Recheck as ordered. [facility] 10-27-2022 Note HNO ID: [id number] Author: Yanely Posadas RN Service: ? Author Type: ? Type: Progress Notes Filed: 10/27/2022 3:00 PM Note Text: patient had inr completed at [facility] patients inr is 1.7 (patients inr range [...] has appointment with pcp also this day) [facility] 10-26-2022 Note HNO ID: [id number] Author: Michelle Rocha RN Service: ? Author [...] more often than normal? No Based on physical therapy attendant, the following disposition is advised: No symptoms or symptoms present, not severe. Routed to: No Action Needed FAVIOLA Education Provided this Outreach: No Michelle Rocha RN October 26, 2022 2:44 PM [facility] 10-26-2022 Note Patient Outreach ([facility] NIMISHA CEAJ ([id number]) 1945 F Date Time Provider Department 10/26/22 MICHELLE ROCHA [facility] During your visit today, we recorded the [...] more often than normal? No Based on physical therapy attendant, the following disposition is advised: No symptoms [...] contact rash. 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 - calcitonin,salmon, (MIACALCIN, FORTICAL) 200 unit/actuation nasal spray Use 1 [place] in the nose once daily. - Back [...] infarct (HCC) [N28. (more content not included)... [facility] 10-20-2022 Note HNO ID: [id number] Author: RT Kia(R) Service: Nuclear Medicine Author Type: Technologist Type: [...] safety can be found using this link: [email or web address] [email or web address] %[email or web address]%20Nuclear%20Me dicine%20Procedures.pdf SIGNATURE: ARPIT Adam) PATIENT NAME: Nimisha Ceja DATE: October 20, 2022 TIME: 12:45 PM PAGER/CONTACT #: [facility] 10-20-2022 History of Presen t illness [...] safety can be found using this link: [email or web address] [email or web address]-%20Diagnostic%20N uclear%20Medicine%20Procedures.p df SIGNATURE: RT Kia(Zenaida) PATIENT NAME: Nimisha Ceja DATE: October 20, 2022 TIME: 12:45 PM PAGER/CONTACT #: documented in this encounter [facility] 10-13-2022 Note HNO ID: [id number] Author: Jennifer Kimball Ma Service: ? Author Type: ? Type: Progress Notes Filed: 10/13/2022 3:52 PM Note Text: Pt called and notified of changes below from [facility] Provider. Pt understood. Tracker has been updated and medication updated. Jennifer Kimball Ma [facility] 10-13-2022 Note HNO ID: [id number] Author: Gregorio Delcid MD Service: ? Author Type: Physician Type: Progress Notes Filed: 10/13/2022 3:52 PM Note Text: Go back to 4mg Mon,Thurs; and 2mg all other days Recheck in 2 weeks as planned Gregorio Delcid MD [facility] 10-13-2022 Note HNO ID: [id number] Author: Yanely Posadas RN Service: ? Author Type: ? Type: Progress Notes Filed: 10/13/2022 3:52 PM Note Text: patient had inr completed at [facility] patients inr is 1.6 (patients inr range [...] 2 week follow up inr on 10/27/22 [facility] 10-13-2022 History of Presen t illness Narrative Pt called and notified of changes below from [facility] Provider. Pt understood. Tracker has been updated and medication updated. Jennifer Kimball Ma Go back to 4mg Mon,Thurs; and 2mg all other days Recheck in 2 weeks as planned Gregorio Delcid MD patient had inr completed at [facility] patients inr is 1.6 (patients inr range [...] inr on 10/27/22 documented in this encounter [facility] 10-05-2022 Miscellaneous Notes PATIENT NOTIFIED OF SAME. [...] Tobi Mehta PA-C documented in this encounter [facility] 09-29-2022 Note HNO ID: [id number] Author: Wes Bonilla MD Service: ? Author Type: Physician Type: Progress Notes Filed: 09/29/2022 3:08 PM Note Text: agree [facility] 09-29-2022 Note HNO ID: [id number] Author: Yanely Posadas RN Service: ? Author Type: ? Type: Progress Notes Filed: 09/29/2022 3:08 PM Note Text: patient had inr completed at [facility] patients inr is 2.4 (patients inr range [...] the first normal reading since dose change [facility] 09-29-2022 History of Presen t illness Narrative agree patient had inr completed at [facility] patients inr is 2.4 (patients inr range [...] since dose change documented in this encounter [facility] 09-27-2022 Miscellaneous Notes patient has been rescheduled to Monday Patient calling and states she has an appointment at the [facility] today at 1:15pm to have her [...] week. Thank you. documented in this encounter [facility] 09-23-2022 Note HNO ID: [id number] Author: Michelle Rocha RN Service: ? Author Type: Registered Nurse Type: Progress Notes Filed: 09/23/2022 11:12 AM Note Text: [facility] Telephonic Outreach Provider Action/FYI Made call #2. NA/ Left Vm Contacted for: Routine Telephonic Outreach Contact made with patient: No, left message. Michelle Rocha RN September 23, 2022 11:11 AM [facility] 09-23-2022 History of Presen t illness Narrative CD Telephonic Outreach Provider Action/FYI Made call #2. NA/ Left Vm Contacted for: Routine Telephonic Outreach Contact made with patient: No, left message. Michelle Rocha RN September 23, 2022 11:11 AM [facility] Telephonic Outreach Provider Action/FYI Made call #1 to pt. NA/Left Vm. Contacted for: Routine Telephonic Outreach Contact made with patient: No, left message. Michelle Rocha RN September 22, 2022 4:05 PM documented in this encounter [facility] 09-22-2022 Note HNO ID: [id number] Author: Michelle Rocha RN Service: ? Author Type: Registered Nurse Type: Progress Notes Filed: 09/23/2022 11:12 AM Note Text: [facility] Telephonic Outreach Provider Action/FYI Made call #1 to pt. NA/Left Vm. Contacted for: Routine Telephonic Outreach Contact made with patient: No, left message. Michelle Rocha RN September 22, 2022 4:05 PM [facility] 09-22-2022 Note Patient Outreach ([facility]) NIMISHA CEJA ([id number]) 1945 F Date Time Provider Department 09/22/22 MICHELLE ROCHA During your visit today, we recorded the following information about you: Michelle Rocha RN 09/23/2022 11:12 AM Signed CD Telephonic Outreach Provider Action/FYI Made call #1 to pt. NA/Left Vm. Contacted for: Routine Telephonic Outreach Contact made with patient: No, left message. Michelle Rocha RN September 22, 2022 4:05 PM Michelle Rocha RN 09/23/2022 11:12 AM Signed CD Telephonic Outreach Provider Action/FYI Made call #2. [...] FORTICAL) 200 unit/actuation nasal spray Use 1 [place] in the nose once daily. - Back [...] , , 2 mg all other days. - amiodarone [...] History of surgi (more content not included)... [facility] 09-22-2022 Miscellaneous Notes Patient notified & this MA repeated d/t renal status only to be taking BID. Patient verbalized understanding of instructions. Luz Dupree MA The following approved medication requests have been transmitted electronically. Requested Prescriptions Signed Prescriptions Disp Refills gabapentin (NEURONTIN) 100 mg capsule 180 capsule 1 Sig: Take 1 capsule by mouth twice daily for 180 days. Authorizing Provider: Usman MEHTA MA She can only do twice a day r/t renal status. The following approved medication requests have been transmitted electronically. Requested Prescriptions Signed Prescriptions Disp Refills gabapentin (NEURONTIN) 100 mg capsule 180 capsule 1 Sig: Take 1 capsule by mouth twice daily for 180 days. Authorizing Provider: Usman MEHTA PA-C Patient states that Tobi told her she could increase to 2-3 tablets per day. Has taken 2 some days and now needs refill. Please send to pharmacy for her with new instructions. documented in this encounter [facility] 09-22-2022 Miscellaneous Notes Patient notified. ----- Message from Usman Mehta PA-C sent at 2022 9:32 PM EDT ----- Please let her know the XR shows normal gas pattern, no obstruction. Tobi Carmona PA-C documented in this encounter [facility] 09-22-2022 Miscellaneous Notes Patient notified and verbalizes understanding. Please let her know lab results look okay except she is mildly dehydrated probably from lasix. Needs to push fluids a little. Alk phos is elevated but other liver enzymes are normal Please have lab run iso's. Telephone on 09/21/22 ALK PHOS ISOENZYM BL Thanks, Tobi Mehta PA-C documented in this encounter [facility] 09-20-2022 Note HNO ID: [id number] Author: Yanely Posadas RN Service: ? Author Type: ? Type: Progress Notes Filed: 09/20/2022 4:04 PM Note Text: PATIENT NOTIFIED OF INFORMATION [facility] 09-20-2022 Note HNO ID: [id number] Author: Wes Bonilla MD Service: ? Author Type: Physician Type: Progress Notes Filed: 09/20/2022 4:04 PM Note Text: Change to 2 mg a day except 4 mg on Mondays. Recheck one week [facility] 09-20-2022 Note HNO ID: [id number] Author: Yanely Posadas RN Service: ? Author Type: ? Type: Progress Notes Filed: 09/20/2022 4:04 PM Note Text: patient had inr completed at [facility] patients inr is 3.1 (patients inr range [...] 1 week follow up inr on 09/27/22 [facility] 09-19-2022 Note HNO ID: [id number] Author: RT Araceli(R) Service: Radiology Author Type: Technologist Type: Progress [...] RT Araceli(R) September 19, 2022 3:04 PM [facility] 09-19-2022 Note HNO ID: [id number] Author: Usman Mehta PA-C Service: ? Author Type: Physician Thermal Intelligence Analyst Type: Progress Notes Filed: 09/19/2022 2:55 PM [...] Lymph 1.00 - 4.00 k/uL 1.72 1.88 [place]% % 15.3 14.3 Abs [place] <0.87 k/uL 1.09 (H) 1.28 (H) Eosin% [...] Emphysema PAST MEDICAL HISTORY Diagnosis Date A-fib ([facility]) Class 1 congestive heart failure, unspecified failure chronicity, systolic ([facility]) 11/21/2019 Dysphagia, unspecified(787.20) Esophageal reflux Esophagitis, unspecified Marfan's syndrome Moderate mitral regurgitation 06/18/2021 04/27/21 Echo at [facility]. Pleural effusion, right 05/05/2020 CXR 11/18/19 and [...] home until about (more content not included)... [facility] 09-19-2022 History of Presen t illness [...] Lymph 1.00 - 4.00 k/uL 1.72 1.88 [place]% % 15.3 14.3 Abs [place] <0.87 k/uL 1.09 (H) 1.28 (H) Eosin% [...] Emphysema PAST MEDICAL HISTORY Diagnosis Date A-fib ([facility]) Class 1 congestive heart failure, unspecified failure chronicity, systolic ([facility]) 11/21/2019 Dysphagia, unspecified(787.20) Esophageal reflux Esophagitis, unspecified Marfan's syndrome Moderate mitral regurgitation 06/18/2021 04/27/21 Echo at [facility]. Pleural effusion, right 05/05/2020 CXR 11/18/19 and [...] FORTICAL) 200 unit/actuation nasal spray Use 1 [place] in the nose once daily. 6 mL [...] 4 mg tablet 4 mg on M, , , 2 mg all other days. [...] management, PT - GABAPENTIN 100 MG CAPSULE Usman Mehta PA-C documented in this encounter [facility] documented as of this encounter (statuses as of 11/09/2022) [facility]-17-2023 History of Past illness Narrative* Problem Noted [...] 07/22/2021 11/08/2022 Overview: Has seen Dr Calvin Leukcolby 07/22/2021 11/08/2022 Encounter for support and coordination of transi tion of care 07/20/2021 07/26/2022 Overview: Facility: [facility] Date of admission 07/14/2021 Date of discharge Prehospital work-up: Presented to 07/14/2021 to [facility] ED complaining of left-sided abdominal pain with multiple symptoms including cough, myalgias, nasal congestion, low dietary intake due to concerns that would aggravate stomach ache. Patient was exposed to Covid 2 weeks prior, unvaccinated. Vital signs: 98.3 [id number]/102-93% RA. Exam description: Tired, alert and nontoxic, [...] he could be done outpatient. 07/15/2021 consultation program director/traffic director Dr. Dwayne Garcia: Assessment right pleural effusion: Continue diuretic therapy, empiric antimicrobials, thoracentesis recommended, eventual right heart cath work and secondary work-up for pH outpatient basis. 07/15/2021 echocardiogram: LV size and LV SF WNL, EF 60 to 65%. RV normal size and RV SF EF. Left atrium moderately enlarged, right atrium mildly enlarged. MV: Moderate mitral annular calcification, 1-2+ WV. TV: Normal. AV: Diffuse aortic valve calcification. [...] of this encounter (statuses as of 11/09/2022) [facility] History of Past illness Narrative* Problem Noted [...] tion of care 07/20/2021 07/26/2022 Overview: Facility: [facility] Date of admission 07/14/2021 Date of discharge Prehospital work-up: Presented to 07/14/2021 to [facility] ED complaining of left-sided abdominal pain with multiple symptoms including cough, myalgias, nasal congestion, low dietary intake due to concerns that would aggravate stomach ache. Patient was exposed to Covid 2 weeks prior, unvaccinated. Vital signs: 98.3 [id number]/102-93% RA. Exam description: Tired, alert and nontoxic, [...] he could be done outpatient. 07/15/2021 consultation program director/traffic director Dr. Dwayne Garcia: Assessment right pleural effusion: Continue diuretic therapy, empiric antimicrobials, thoracentesis recommended, eventual right heart cath work and secondary work-up for pH outpatient basis. 07/15/2021 echocardiogram: LV size and LV SF WNL, EF 60 to 65%. RV normal size and RV SF EF. Left atrium moderately enlarged, right atrium mildly enlarged. MV: Moderate mitral annular calcification, 1-2+ [place]. TV: Normal. AV: Diffuse aortic valve calcification. [...] infectious process 07/16/2021: Ultrasound-guided thoracentesis Dr. Gary Petrocelli: 670 mL of blood-tinged cloudy fluid drained [...] of this encounter (statuses as of 11/25/2022) [facility] History of Past illness Narrative* Problem Noted [...] 07/22/2021 11/08/2022 Overview: Has seen Dr Calvin Leukcolby 07/22/2021 11/08/2022 Encounter for support and coordination of transi tion of care 07/20/2021 07/26/2022 Overview: Facility: [facility] Date of admission 07/14/2021 Date of discharge Prehospital work-up: Presented to 07/14/2021 to [facility] ED complaining of left-sided abdominal pain with multiple symptoms including cough, myalgias, nasal congestion, low dietary intake due to concerns that would aggravate stomach ache. Patient was exposed to Covid 2 weeks prior, unvaccinated. Vital signs: 98.3 [id number]/102-93% RA. Exam description: Tired, alert and nontoxic, [...] he could be done outpatient. 07/15/2021 consultation program director/traffic director Dr. Dwayne Garcia: Assessment right pleural effusion: Continue diuretic therapy, empiric antimicrobials, thoracentesis recommended, eventual right heart cath work and secondary work-up for pH outpatient basis. 07/15/2021 echocardiogram: LV size and LV SF WNL, EF 60 to 65%. RV normal size and RV SF EF. Left atrium moderately enlarged, right atrium mildly enlarged. MV: Moderate mitral annular calcification, 1-2+ WV. TV: Normal. AV: Diffuse aortic valve calcification. [...] of this encounter (statuses as of 12/02/2022) [facility] History of Past illness Narrative* Problem Noted [...] tion of care 07/20/2021 07/26/2022 Overview: Facility: [facility] Date of admission 07/14/2021 Date of discharge Prehospital work-up: Presented to 07/14/2021 to [facility] ED complaining of left-sided abdominal pain with multiple symptoms including cough, myalgias, nasal congestion, low dietary intake due to concerns that would aggravate stomach ache. Patient was exposed to Covid 2 weeks prior, unvaccinated. Vital signs: 98.3 [id number]/102-93% RA. Exam description: Tired, alert and nontoxic, [...] he could be done outpatient. 07/15/2021 consultation program director/traffic director Dr. Dwayne Garcia: Assessment right pleural effusion: Continue diuretic therapy, empiric antimicrobials, thoracentesis recommended, eventual right heart cath work and secondary work-up for pH outpatient basis. 07/15/2021 echocardiogram: LV size and LV SF WNL, EF 60 to 65%. RV normal size and RV SF EF. Left atrium moderately enlarged, right atrium mildly enlarged. MV: Moderate mitral annular calcification, 1-2+ WV. TV: Normal. AV: Diffuse aortic valve calcification. [...] infectious process 07/16/2021: Ultrasound-guided thoracentesis Dr. Gary Petrocelli: 670 mL of blood-tinged cloudy fluid drained [...] of this encounter (statuses as of 12/09/2022) [facility] History of Past illness Narrative* Problem Noted [...] transition of care 07/20/2021 07/26/2022 Overview: Facility: [facility] Date of admission 07/14/2021 Date of discharge Prehospital work-up: Presented to 07/14/2021 to [facility] ED complaining of left-sided abdominal pain with multiple symptoms including cough, myalgias, nasal congestion, low dietary intake due to concerns that would aggravate stomach ache. Patient was exposed to Covid 2 weeks prior, unvaccinated. Vital signs: 98.3 [id number]/102-93% RA. Exam description: Tired, alert and nontoxic, [...] he could be done outpatient. 07/15/2021 consultation program director/traffic director Dr. Dwayne Garcia: Assessment right pleural effusion: Continue diuretic therapy, empiric antimicrobials, thoracentesis recommended, eventual right heart cath work and secondary work-up for pH outpatient basis. 07/15/2021 echocardiogram: LV size and LV SF WNL, EF 60 to 65%. RV normal size and RV SF EF. Left atrium moderately enlarged, right atrium mildly enlarged. MV: Moderate mitral annular calcification, 1-2+ WV. TV: Normal. AV: Diffuse aortic valve calcification. 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 05/08/2018 Dysphagia, unspecified(787.20) 05/08/2018 documented as of this encounter (statuses as of 01/04/2023) [facility] History of Past illness Narrative* Problem Noted [...] transition of care 07/20/2021 07/26/2022 Overview: Facility: [facility] Date of admission 07/14/2021 Date of discharge Prehospital work-up: Presented to 07/14/2021 to [facility] ED complaining of left-sided abdominal pain with multiple symptoms including cough, myalgias, nasal congestion, low dietary intake due to concerns that would aggravate stomach ache. Patient was exposed to Covid 2 weeks prior, unvaccinated. Vital signs: 98.3 [id number]/102-93% RA. Exam description: Tired, alert and nontoxic, [...] he could be done outpatient. 07/15/2021 consultation program director/traffic director Dr. Dwayne Garcia: Assessment right pleural effusion: Continue diuretic therapy, empiric antimicrobials, thoracentesis recommended, eventual right heart cath work and secondary work-up for pH outpatient basis. 07/15/2021 echocardiogram: LV size and LV SF WNL, EF 60 to 65%. RV normal size and RV SF EF. Left atrium moderately enlarged, right atrium mildly enlarged. MV: Moderate mitral annular calcification, 1-2+ WV. TV: Normal. AV: Diffuse aortic valve calcification. [...] infectious process 07/16/2021: Ultrasound-guided thoracentesis Dr. Gary Petrocelli: 670 mL of blood-tinged cloudy fluid drained [...] and wants to transfer care to Dr. Mareie. She did develop atrial fib with rapid [...] 11/08/2022 Hypoxia 06/23/2021 11/08/2022 Pleural effusion, right 05/05/2020/0 11/2022 Overview: Now seeing Dr. Mariee Thoracic aorta atherosclerosis 03/23/2020 09/23/2020 Chronic systolic heart failure 11/21/2019 09/23/2020 Fatigue 11/24/2016 10/10/2017 Atrial fibrillation 01/14/2014 10/11/19 Centrilobular emphysema 01/14/201411/2022 Multiple thyroid nodules 03/03/2011 Hypertension 01/19/2011 06/23/2015 Esophagitis, unspecified 01/13/200901/2018 Gastrointestinal malfunction arising from mental factors 12/09/2008 10/10/2017 Nontoxic multinodular goiter 12/08/2008 05/08/2018 Dysphagia, unspecified(787.20) 05/08/2018 documented as of this encounter (statuses as of 01/14/2023) [facility] History of Past illness Narrative* Problem Noted [...] transition of care 07/20/2021 07/26/2022 Overview: Facility: [facility] Date of admission 07/14/2021 Date of discharge Prehospital work-up: Presented to 07/14/2021 to [facility] ED complaining of left-sided abdominal pain with multiple symptoms including cough, myalgias, nasal congestion, low dietary intake due to concerns that would aggravate stomach ache. Patient was exposed to Covid 2 weeks prior, unvaccinated. Vital signs: 98.3 [id number]/102-93% RA. Exam description: Tired, alert and nontoxic, [...] he could be done outpatient. 07/15/2021 consultation program director/traffic director Dr. Dwayne Garcia: Assessment right pleural effusion: Continue diuretic therapy, empiric antimicrobials, thoracentesis recommended, eventual right heart cath work and secondary work-up for pH outpatient basis. 07/15/2021 echocardiogram: LV size and LV SF WNL, EF 60 to 65%. RV normal size and RV SF EF. Left atrium moderately enlarged, right atrium mildly enlarged. MV: Moderate mitral annular calcification, 1-2+ WV. TV: Normal. AV: Diffuse aortic valve calcification. 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 05/08/2018 Dysphagia, unspecified(787.20) 05/08/2018 documented as of this encounter (statuses as of 01/14/2023) [facility]04-17-2023 History of Past illness Narrative* Problem Noted [...] transition of care 07/20/2021 07/26/2022 Overview: Facility: [facility] Date of admission 07/14/2021 Date of discharge Prehospital work-up: Presented to 07/14/2021 to [facility] ED complaining of left-sided abdominal pain with multiple symptoms including cough, myalgias, nasal congestion, low dietary intake due to concerns that would aggravate stomach ache. Patient was exposed to Covid 2 weeks prior, unvaccinated. Vital signs: 98.3 V-[id number]/102-93% RA. Exam description: Tired, alert and nontoxic, [...] he could be done outpatient. 07/15/2021 consultation program director/traffic director Dr. Dwayne Garcia: Assessment right pleural effusion: Continue diuretic therapy, empiric antimicrobials, thoracentesis recommended, eventual right heart cath work and secondary work-up for pH outpatient basis. 07/15/2021 echocardiogram: LV size and LV SF WNL, EF 60 to 65%. RV normal size and RV SF EF. Left atrium moderately enlarged, right atrium mildly enlarged. MV: Moderate mitral annular calcification, 1-2+ WV. TV: Normal. AV: Diffuse aortic valve calcification. [...] infectious process 07/16/2021: Ultrasound-guided thoracentesis Dr. Gary Petrocelli: 670 mL of blood-tinged cloudy fluid drained [...] 11/08/2022 Hypoxia 06/23/2021 11/08/2022 Pleural effusion, right 05/05/2020/0 11/2022 Overview: Now seeing Dr. Mariee Thoracic aorta atherosclerosis 03/23/2020 09/23/2020 Chronic systolic heart failure 11/21/2019 09/23/2020 Fatigue 11/24/2016 10/10/2017 Atrial fibrillation 01/14/2014 10/11/19 Centrilobular emphysema 01/14/201411/2022 Multiple thyroid nodules 03/03/2011 Hypertension 01/19/2011 06/23/2015 Esophagitis, unspecified 01/13/200901/2018 Gastrointestinal malfunction arising from mental factors 12/09/2008 10/10/2017 Nontoxic multinodular goiter 12/08/2008 05/08/2018 Dysphagia, unspecified(787.20) 05/08/2018 documented as of this encounter (statuses as of 01/14/2023) [facility]04-17-2023 History of Past illness Narrative* Problem Noted [...] transition of care 07/20/2021 07/26/2022 Overview: Facility: [facility] Date of admission 07/14/2021 Date of discharge Prehospital work-up: Presented to 07/14/2021 to [facility] ED complaining of left-sided abdominal pain with multiple symptoms including cough, myalgias, nasal congestion, low dietary intake due to concerns that would aggravate stomach ache. Patient was exposed to Covid 2 weeks prior, unvaccinated. Vital signs: 98.3 A-[id number]/102-93% RA. Exam description: Tired, alert and nontoxic, [...] he could be done outpatient. 07/15/2021 consultation program director/traffic director Dr. Dwayne Garcia: Assessment right pleural effusion: Continue diuretic therapy, empiric antimicrobials, thoracentesis recommended, eventual right heart cath work and secondary work-up for pH outpatient basis. 07/15/2021 echocardiogram: LV size and LV SF WNL, EF 60 to 65%. RV normal size and RV SF EF. Left atrium moderately enlarged, right atrium mildly enlarged. MV: Moderate mitral annular calcification, 1-2+ WV. TV: Normal. AV: Diffuse aortic valve calcification. 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 05/08/2018 Dysphagia, unspecified(787.20) 05/08/2018 documented as of this encounter (statuses as of 01/16/2023) [facility]04-17-2023 History of Past illness Narrative* Problem Noted [...] kidney 07/22/2021 11/08/2022 Overview: Has seen Dr aClvin Leukocytosis 07/22/2021 11/08/2022 Encounter for support and co ordination of transition of care 07/20/2021 07/26/2022 Overview: Facility: [facility] Date of admission 07/14/2021 Date of discharge Prehospital work-up: Presented to 07/14/2021 to [facility] ED complaining of left-sided abdominal pain with multiple symptoms including cough, myalgias, nasal congestion, low dietary intake due to concerns that would aggravate stomach ache. Patient was exposed to Covid 2 weeks prior, unvaccinated. Vital signs: 98.3 V-[id number]/102-93% RA. Exam description: Tired, alert and nontoxic, [...] he could be done outpatient. 07/15/2021 consultation program director/traffic director Dr. Dwayne Garcia: Assessment right pleural effusion: Continue diuretic therapy, empiric antimicrobials, thoracentesis recommended, eventual right heart cath work and secondary work-up for pH outpatient basis. 07/15/2021 echocardiogram: LV size and LV SF WNL, EF 60 to 65%. RV normal size and RV SF EF. Left atrium moderately enlarged, right atrium mildly enlarged. MV: Moderate mitral annular calcification, 1-2+ WV. TV: Normal. AV: Diffuse aortic valve calcification. [...] infectious process 07/16/2021: Ultrasound-guided thoracentesis Dr. Gary Petrocelli: 670 mL of blood-tinged cloudy fluid drained [...] 11/08/2022 Hypoxia 06/23/2021 11/08/2022 Pleural effusion, right 05/05/2020/0 11/2022 Overview: Now seeing Dr. Mariee Thoracic aorta atherosclerosis 03/23/2020 09/23/2020 Chronic systolic heart failure 11/21/2019 09/23/2020 Fatigue 11/24/2016 10/10/2017 Atrial fibrillation 01/14/2014 10/11/19 Centrilobular emphysema 01/14/201411/2022 Multiple thyroid nodules 03/03/2011 Hypertension 01/19/2011 06/23/2015 Esophagitis, unspecified 01/13/200901/2018 Gastrointestinal malfunction arising from mental factors 12/09/2008 10/10/2017 Nontoxic multinodular goiter 12/08/2008 05/08/2018 Dysphagia, unspecified(787.20) 05/08/2018 documented as of this encounter (statuses as of 01/18/2023) [facility]04-17-2023 History of Past illness Narrative* Problem Noted [...] transition of care 07/20/2021 07/26/2022 Overview: Facility: [facility] Date of admission 07/14/2021 Date of discharge Prehospital work-up: Presented to 07/14/2021 to [facility] ED complaining of left-sided abdominal pain with multiple symptoms including cough, myalgias, nasal congestion, low dietary intake due to concerns that would aggravate stomach ache. Patient was exposed to Covid 2 weeks prior, unvaccinated. Vital signs: 98.3 B-[id number]/102-93% RA. Exam description: Tired, alert and nontoxic, [...] he could be done outpatient. 07/15/2021 consultation program director/traffic director Dr. Dwayne Garcia: Assessment right pleural effusion: Continue diuretic therapy, empiric antimicrobials, thoracentesis recommended, eventual right heart cath work and secondary work-up for pH outpatient basis. 07/15/2021 echocardiogram: LV size and LV SF WNL, EF 60 to 65%. RV normal size and RV SF EF. Left atrium moderately enlarged, right atrium mildly enlarged. MV: Moderate mitral annular calcification, 1-2+ WV. TV: Normal. AV: Diffuse aortic valve calcification. 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 05/08/2018 Dysphagia, unspecified(787.20) 05/08/2018 documented as of this encounter (statuses as of 01/20/2023) [facility]04-17-2023 History of Past illness Narrative* Problem Noted [...] transition of care 07/20/2021 07/26/2022 Overview: Facility: [facility] Date of admission 07/14/2021 Date of discharge Prehospital work-up: Presented to 07/14/2021 to [facility] ED complaining of left-sided abdominal pain with multiple symptoms including cough, myalgias, nasal congestion, low dietary intake due to concerns that would aggravate stomach ache. Patient was exposed to Covid 2 weeks prior, unvaccinated. Vital signs: 98.3 Q-[id number]/102-93% RA. Exam description: Tired, alert and nontoxic, [...] he could be done outpatient. 07/15/2021 consultation program director/traffic director Dr. Dwayne Garcia: Assessment right pleural effusion: Continue diuretic therapy, empiric antimicrobials, thoracentesis recommended, eventual right heart cath work and secondary work-up for pH outpatient basis. 07/15/2021 echocardiogram: LV size and LV SF WNL, EF 60 to 65%. RV normal size and RV SF EF. Left atrium moderately enlarged, right atrium mildly enlarged. MV: Moderate mitral annular calcification, 1-2+ WV. TV: Normal. AV: Diffuse aortic valve calcification. [...] infectious process 07/16/2021: Ultrasound-guided thoracentesis Dr. Gary Petrocelli: 670 mL of blood-tinged cloudy fluid drained [...] 11/08/2022 Hypoxia 06/23/2021 11/08/2022 Pleural effusion, right 05/05/2020/0 11/2022 Overview: Now seeing Dr. Mariee Thoracic aorta atherosclerosis 03/23/2020 09/23/2020 Chronic systolic heart failure 11/21/2019 09/23/2020 Fatigue 11/24/2016 10/10/2017 Atrial fibrillation 01/14/2014 10/11/19 Centrilobular emphysema 01/14/201411/2022 Multiple thyroid nodules 03/03/2011 Hypertension 01/19/2011 06/23/2015 Esophagitis, unspecified 01/13/200901/2018 Gastrointestinal malfunction arising from mental factors 12/09/2008 10/10/2017 Nontoxic multinodular goiter 12/08/2008 05/08/2018 Dysphagia, unspecified(787.20) 05/08/2018 documented as of this encounter (statuses as of 01/23/2023) [facility]04-17-2023 History of Past illness Narrative* Problem Noted [...] transition of care 07/20/2021 07/26/2022 Overview: Facility: [facility] Date of admission 07/14/2021 Date of discharge Prehospital work-up: Presented to 07/14/2021 to [facility] ED complaining of left-sided abdominal pain with multiple symptoms including cough, myalgias, nasal congestion, low dietary intake due to concerns that would aggravate stomach ache. Patient was exposed to Covid 2 weeks prior, unvaccinated. Vital signs: 98.3 T-[id number]/102-93% RA. Exam description: Tired, alert and nontoxic, [...] he could be done outpatient. 07/15/2021 consultation program director/traffic director Dr. Dwayne Garcia: Assessment right pleural effusion: Continue diuretic therapy, empiric antimicrobials, thoracentesis recommended, eventual right heart cath work and secondary work-up for pH outpatient basis. 07/15/2021 echocardiogram: LV size and LV SF WNL, EF 60 to 65%. RV normal size and RV SF EF. Left atrium moderately enlarged, right atrium mildly enlarged. MV: Moderate mitral annular calcification, 1-2+ WV. TV: Normal. AV: Diffuse aortic valve calcification. 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 05/08/2018 Dysphagia, unspecified(787.20) 05/08/2018 documented as of this encounter (statuses as of 01/27/2023) [facility]-17-2023 History of Past illness Narrative* Problem Noted [...] transition of care 07/20/2021 07/26/2022 Overview: Facility: [facility] Date of admission 07/14/2021 Date of discharge Prehospital work-up: Presented to 07/14/2021 to [facility] ED complaining of left-sided abdominal pain with multiple symptoms including cough, myalgias, nasal congestion, low dietary intake due to concerns that would aggravate stomach ache. Patient was exposed to Covid 2 weeks prior, unvaccinated. Vital signs: 98.3 [id number]/102-93% RA. Exam description: Tired, alert and nontoxic, [...] he could be done outpatient. 07/15/2021 consultation program director/traffic director Dr. Dwayne Garcia: Assessment right pleural effusion: Continue diuretic therapy, empiric antimicrobials, thoracentesis recommended, eventual right heart cath work and secondary work-up for pH outpatient basis. 07/15/2021 echocardiogram: LV size and LV SF WNL, EF 60 to 65%. RV normal size and RV SF EF. Left atrium moderately enlarged, right atrium mildly enlarged. MV: Moderate mitral annular calcification, 1-2+ WV. TV: Normal. AV: Diffuse aortic valve calcification. [...] infectious process 07/16/2021: Ultrasound-guided thoracentesis Dr. Gary Petrocelli: 670 mL of blood-tinged cloudy fluid drained [...] 24-hour: 1 capsule daily Referral/follow-up: Dr. Flaquito Mraiee pulmonology 2 weeks Hypokalemia 07/09/2021 11/08/2022 Hyponatremia 07/09/2021 11/08/2022 Hypoxemia 06/23/2021 11/08/2022 Hypoxia 06/23/2021 11/08/2022 Pleural effusion, right 05/05/2020/0 11/2022 Overview: Now seeing Dr. Mariee Thoracic aorta atherosclerosis 03/23/2020 09/23/2020 Chronic systolic heart failure 11/21/2019 09/23/2020 Fatigue 11/24/2016 10/10/2017 Atrial fibrillation 01/14/2014 10/11/19 Centrilobular emphysema 01/14/201411/2022 Multiple thyroid nodules 03/03/2011 Hypertension 01/19/2011 06/23/2015 Esophagitis, unspecified 01/13/200901/2018 Gastrointestinal malfunction arising from mental factors 12/09/2008 10/10/2017 Nontoxic multinodular goiter 12/08/2008 05/08/2018 Dysphagia, unspecified(787.20) 05/08/2018 documented as of this encounter (statuses as of 01/27/2023) [facility] History of Past illness Narrative* Problem Noted [...] transition of care 07/20/2021 07/26/2022 Overview: Facility: [facility] Date of admission 07/14/2021 Date of discharge Prehospital work-up: Presented to 07/14/2021 to [facility] ED complaining of left-sided abdominal pain with multiple symptoms including cough, myalgias, nasal congestion, low dietary intake due to concerns that would aggravate stomach ache. Patient was exposed to Covid 2 weeks prior, unvaccinated. Vital signs: 98.3 S-[id number]/102-93% RA. Exam description: Tired, alert and nontoxic, [...] he could be done outpatient. 07/15/2021 consultation program director/traffic director Dr. Dwayne Garcia: Assessment right pleural effusion: Continue diuretic therapy, empiric antimicrobials, thoracentesis recommended, eventual right heart cath work and secondary work-up for pH outpatient basis. 07/15/2021 echocardiogram: LV size and LV SF WNL, EF 60 to 65%. RV normal size and RV SF EF. Left atrium moderately enlarged, right atrium mildly enlarged. MV: Moderate mitral annular calcification, 1-2+ WV. TV: Normal. AV: Diffuse aortic valve calcification. 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 05/08/2018 Dysphagia, unspecified(787.20) 05/08/2018 documented as of this encounter (statuses as of 02/10/2023) [facility] History of Past illness Narrative* Problem Noted [...] transition of care 07/20/2021 07/26/2022 Overview: Facility: [facility] Date of admission 07/14/2021 Date of discharge Prehospital work-up: Presented to 07/14/2021 to [facility] ED complaining of left-sided abdominal pain with multiple symptoms including cough, myalgias, nasal congestion, low dietary intake due to concerns that would aggravate stomach ache. Patient was exposed to Covid 2 weeks prior, unvaccinated. Vital signs: 98.3 R-115-04-143/102-93% RA. Exam description: Tired, alert and nontoxic, [...] he could be done outpatient. 07/15/2021 consultation program director/traffic director Dr. Dwayne Garcia: Assessment right pleural effusion: Continue diuretic therapy, empiric antimicrobials, thoracentesis recommended, eventual right heart cath work and secondary work-up for pH outpatient basis. 07/15/2021 echocardiogram: LV size and LV SF WNL, EF 60 to 65%. RV normal size and RV SF EF. Left atrium moderately enlarged, right atrium mildly enlarged. MV: Moderate mitral annular calcification, 1-2+ WV. TV: Normal. AV: Diffuse aortic valve calcification. [...] infectious process 07/16/2021: Ultrasound-guided thoracentesis Dr. Gary Petrocelli: 670 mL of blood-tinged cloudy fluid drained [...] 11/08/2022 Hypoxia 06/23/2021 11/08/2022 Pleural effusion, right 05/05/2020/0 11/2022 Overview: Now seeing Dr. Mariee Thoracic aorta atherosclerosis 03/23/2020 09/23/2020 Chronic systolic heart failure 11/21/2019 09/23/2020 Fatigue 11/24/2016 10/10/2017 Atrial fibrillation 01/14/2014 10/11/19 Centrilobular emphysema 01/14/201411/2022 Multiple thyroid nodules 03/03/2011 Hypertension 01/19/2011 06/23/2015 Esophagitis, unspecified 01/13/200901/2018 Gastrointestinal malfunction arising from mental factors 12/09/2008 10/10/2017 Nontoxic multinodular goiter 12/08/2008 05/08/2018 Dysphagia, unspecified(787.20) 05/08/2018 documented as of this encounter (statuses as of 02/16/2023) [facility] History of Past illness Narrative* Problem Noted [...] transition of care 07/20/2021 07/26/2022 Overview: Facility: [facility] Date of admission 07/14/2021 Date of discharge Prehospital work-up: Presented to 07/14/2021 to [facility] ED complaining of left-sided abdominal pain with multiple symptoms including cough, myalgias, nasal congestion, low dietary intake due to concerns that would aggravate stomach ache. Patient was exposed to Covid 2 weeks prior, unvaccinated. Vital signs: 98.3 M-[id number]/102-93% RA. Exam description: Tired, alert and nontoxic, [...] he could be done outpatient. 07/15/2021 consultation program director/traffic director Dr. Dwayne Garcia: Assessment right pleural effusion: Continue diuretic therapy, empiric antimicrobials, thoracentesis recommended, eventual right heart cath work and secondary work-up for pH outpatient basis. 07/15/2021 echocardiogram: LV size and LV SF WNL, EF 60 to 65%. RV normal size and RV SF EF. Left atrium moderately enlarged, right atrium mildly enlarged. MV: Moderate mitral annular calcification, 1-2+ WV. TV: Normal. AV: Diffuse aortic valve calcification. 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 05/08/2018 Dysphagia, unspecified(787.20) 05/08/2018 documented as of this encounter (statuses as of 02/17/2023) [facility] History of Past illness Narrative* Problem Noted [...] transition of care 07/20/2021 07/26/2022 Overview: Facility: [facility] Date of admission 07/14/2021 Date of discharge Prehospital work-up: Presented to 07/14/2021 to [facility] ED complaining of left-sided abdominal pain with multiple symptoms including cough, myalgias, nasal congestion, low dietary intake due to concerns that would aggravate stomach ache. Patient was exposed to Covid 2 weeks prior, unvaccinated. Vital signs: 98.3 R-179-13-143/102-93% RA. Exam description: Tired, alert and nontoxic, [...] he could be done outpatient. 07/15/2021 consultation program director/traffic director Dr. Dwayne Garcia: Assessment right pleural effusion: Continue diuretic therapy, empiric antimicrobials, thoracentesis recommended, eventual right heart cath work and secondary work-up for pH outpatient basis. 07/15/2021 echocardiogram: LV size and LV SF WNL, EF 60 to 65%. RV normal size and RV SF EF. Left atrium moderately enlarged, right atrium mildly enlarged. MV: Moderate mitral annular calcification, 1-2+ WV. TV: Normal. AV: Diffuse aortic valve calcification. [...] infectious process 07/16/2021: Ultrasound-guided thoracentesis Dr. Gary Petrocelli: 670 mL of blood-tinged cloudy fluid drained [...] 11/08/2022 Hypoxia 06/23/2021 11/08/2022 Pleural effusion, right 05/05/2020/0 11/2022 Overview: Now seeing Dr. Mariee Thoracic aorta atherosclerosis 03/23/2020 09/23/2020 Chronic systolic heart failure 11/21/2019 09/23/2020 Fatigue 11/24/2016 10/10/2017 Atrial fibrillation 01/14/2014 10/11/19 Centrilobular emphysema 01/14/201411/2022 Multiple thyroid nodules 03/03/2011 Hypertension 01/19/2011 06/23/2015 Esophagitis, unspecified 01/13/200901/2018 Gastrointestinal malfunction arising from mental factors 12/09/2008 10/10/2017 Nontoxic multinodular goiter 12/08/2008 05/08/2018 Dysphagia, unspecified(787.20) 05/08/2018 documented as of this encounter (statuses as of 02/18/2023) [facility] History of Past illness Narrative* Problem Noted [...] transition of care 07/20/2021 07/26/2022 Overview: Facility: [facility] Date of admission 07/14/2021 Date of discharge Prehospital work-up: Presented to 07/14/2021 to [facility] ED complaining of left-sided abdominal pain with multiple symptoms including cough, myalgias, nasal congestion, low dietary intake due to concerns that would aggravate stomach ache. Patient was exposed to Covid 2 weeks prior, unvaccinated. Vital signs: 98.3 C-028-11-143/102-93% RA. Exam description: Tired, alert and nontoxic, [...] he could be done outpatient. 07/15/2021 consultation program director/traffic director Dr. Dwayne Garcia: Assessment right pleural effusion: Continue diuretic therapy, empiric antimicrobials, thoracentesis recommended, eventual right heart cath work and secondary work-up for pH outpatient basis. 07/15/2021 echocardiogram: LV size and LV SF WNL, EF 60 to 65%. RV normal size and RV SF EF. Left atrium moderately enlarged, right atrium mildly enlarged. MV: Moderate mitral annular calcification, 1-2+ [place]. TV: Normal. AV: Diffuse aortic valve calcification. 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 05/08/2018 Dysphagia, unspecified(787.20) 05/08/2018 documented as of this encounter (statuses as of 02/21/2023) [facility] History of Past illness Narrative* Problem Noted [...] transition of care 07/20/2021 07/26/2022 Overview: Facility: [facility] Date of admission 07/14/2021 Date of discharge Prehospital work-up: Presented to 07/14/2021 to [facility] ED complaining of left-sided abdominal pain with multiple symptoms including cough, myalgias, nasal congestion, low dietary intake due to concerns that would aggravate stomach ache. Patient was exposed to Covid 2 weeks prior, unvaccinated. Vital signs: 98.3 B-235-37-143/102-93% RA. Exam description: Tired, alert and nontoxic, [...] he could be done outpatient. 07/15/2021 consultation program director/traffic director Dr. Dwayne Garcia: Assessment right pleural effusion: Continue diuretic therapy, empiric antimicrobials, thoracentesis recommended, eventual right heart cath work and secondary work-up for pH outpatient basis. 07/15/2021 echocardiogram: LV size and LV SF WNL, EF 60 to 65%. RV normal size and RV SF EF. Left atrium moderately enlarged, right atrium mildly enlarged. MV: Moderate mitral annular calcification, 1-2+ WV. TV: Normal. AV: Diffuse aortic valve calcification. [...] infectious process 07/16/2021: Ultrasound-guided thoracentesis Dr. Gary Petrocelli: 670 mL of blood-tinged cloudy fluid drained [...] 11/08/2022 Hypoxia 06/23/2021 11/08/2022 Pleural effusion, right 05/05/2020/0 11/2022 Overview: Now seeing Dr. Mariee Thoracic aorta atherosclerosis 03/23/2020 09/23/2020 Chronic systolic heart failure 11/21/2019 09/23/2020 Fatigue 11/24/2016 10/10/2017 Atrial fibrillation 01/14/2014 10/11/19 Centrilobular emphysema 01/14/201411/2022 Multiple thyroid nodules 03/03/2011 Hypertension 01/19/2011 06/23/2015 Esophagitis, unspecified 01/13/200901/2018 Gastrointestinal malfunction arising from mental factors 12/09/2008 10/10/2017 Nontoxic multinodular goiter 12/08/2008 05/08/2018 Dysphagia, unspecified(787.20) 05/08/2018 documented as of this encounter (statuses as of 02/22/2023) [facility]04-17-2023 History of Past illness Narrative* Problem Noted [...] transition of care 07/20/2021 07/26/2022 Overview: Facility: [facility] Date of admission 07/14/2021 Date of discharge Prehospital work-up: Presented to 07/14/2021 to [facility] ED complaining of left-sided abdominal pain with multiple symptoms including cough, myalgias, nasal congestion, low dietary intake due to concerns that would aggravate stomach ache. Patient was exposed to Covid 2 weeks prior, unvaccinated. Vital signs: 98.3 [id number]/102-93% RA. Exam description: Tired, alert and nontoxic, [...] he could be done outpatient. 07/15/2021 consultation program director/traffic director Dr. Dwayne Garcia: Assessment right pleural effusion: Continue diuretic therapy, empiric antimicrobials, thoracentesis recommended, eventual right heart cath work and secondary work-up for pH outpatient basis. 07/15/2021 echocardiogram: LV size and LV SF WNL, EF 60 to 65%. RV normal size and RV SF EF. Left atrium moderately enlarged, right atrium mildly enlarged. MV: Moderate mitral annular calcification, 1-2+ WV. TV: Normal. AV: Diffuse aortic valve calcification. 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 05/08/2018 Dysphagia, unspecified(787.20) 05/08/2018 documented as of this encounter (statuses as of 02/24/2023) [facility]04-17-2023 History of Past illness Narrative* Problem Noted [...] transition of care 07/20/2021 07/26/2022 Overview: Facility: [facility] Date of admission 07/14/2021 Date of discharge Prehospital work-up: Presented to 07/14/2021 to [facility] ED complaining of left-sided abdominal pain with multiple symptoms including cough, myalgias, nasal congestion, low dietary intake due to concerns that would aggravate stomach ache. Patient was exposed to Covid 2 weeks prior, unvaccinated. Vital signs: 98.3 H-[id number]/102-93% RA. Exam description: Tired, alert and nontoxic, [...] he could be done outpatient. 07/15/2021 consultation program director/traffic director Dr. Dwayne Garcia: Assessment right pleural effusion: Continue diuretic therapy, empiric antimicrobials, thoracentesis recommended, eventual right heart cath work and secondary work-up for pH outpatient basis. 07/15/2021 echocardiogram: LV size and LV SF WNL, EF 60 to 65%. RV normal size and RV SF EF. Left atrium moderately enlarged, right atrium mildly enlarged. MV: Moderate mitral annular calcification, 1-2+ WV. TV: Normal. AV: Diffuse aortic valve calcification. [...] infectious process 07/16/2021: Ultrasound-guided thoracentesis Dr. Gary Petrocelli: 670 mL of blood-tinged cloudy fluid drained [...] 11/08/2022 Hypoxia 06/23/2021 11/08/2022 Pleural effusion, right 05/05/2020/0 11/2022 Overview: Now seeing Dr. Mariee Thoracic aorta atherosclerosis 03/23/2020 09/23/2020 Chronic systolic heart failure 11/21/2019 09/23/2020 Fatigue 11/24/2016 10/10/2017 Atrial fibrillation 01/14/2014 10/11/19 Centrilobular emphysema 01/14/201411/2022 Multiple thyroid nodules 03/03/2011 Hypertension 01/19/2011 06/23/2015 Esophagitis, unspecified 01/13/200901/2018 Gastrointestinal malfunction arising from mental factors 12/09/2008 10/10/2017 Nontoxic multinodular goiter 12/08/2008 05/08/2018 Dysphagia, unspecified(787.20) 05/08/2018 documented as of this encounter (statuses as of 02/28/2023) [facility]04-17-2023 History of Past illness Narrative* Problem Noted [...] transition of care 07/20/2021 07/26/2022 Overview: Facility: [facility] Date of admission 07/14/2021 Date of discharge Prehospital work-up: Presented to 07/14/2021 to [facility] ED complaining of left-sided abdominal pain with multiple symptoms including cough, myalgias, nasal congestion, low dietary intake due to concerns that would aggravate stomach ache. Patient was exposed to Covid 2 weeks prior, unvaccinated. Vital signs: 98.3 I-[id number]/102-93% RA. Exam description: Tired, alert and nontoxic, [...] he could be done outpatient. 07/15/2021 consultation program director/traffic director Dr. Dwayne Garcia: Assessment right pleural effusion: Continue diuretic therapy, empiric antimicrobials, thoracentesis recommended, eventual right heart cath work and secondary work-up for pH outpatient basis. 07/15/2021 echocardiogram: LV size and LV SF WNL, EF 60 to 65%. RV normal size and RV SF EF. Left atrium moderately enlarged, right atrium mildly enlarged. MV: Moderate mitral annular calcification, 1-2+ WV. TV: Normal. AV: Diffuse aortic valve calcification. 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 05/08/2018 Dysphagia, unspecified(787.20) 05/08/2018 documented as of this encounter (statuses as of 03/15/2023) [facility]04-17-2023 History of Past illness Narrative* Problem Noted [...] transition of care 07/20/2021 07/26/2022 Overview: Facility: [facility] Date of admission 07/14/2021 Date of discharge Prehospital work-up: Presented to 07/14/2021 to [facility] ED complaining of left-sided abdominal pain with multiple symptoms including cough, myalgias, nasal congestion, low dietary intake due to concerns that would aggravate stomach ache. Patient was exposed to Covid 2 weeks prior, unvaccinated. Vital signs: 98.3 S-170-46-143/102-93% RA. Exam description: Tired, alert and nontoxic, [...] he could be done outpatient. 07/15/2021 consultation program director/traffic director Dr. Dwayne Garcia: Assessment right pleural effusion: Continue diuretic therapy, empiric antimicrobials, thoracentesis recommended, eventual right heart cath work and secondary work-up for pH outpatient basis. 07/15/2021 echocardiogram: LV size and LV SF WNL, EF 60 to 65%. RV normal size and RV SF EF. Left atrium moderately enlarged, right atrium mildly enlarged. MV: Moderate mitral annular calcification, 1-2+ WV. TV: Normal. AV: Diffuse aortic valve calcification. [...] infectious process 07/16/2021: Ultrasound-guided thoracentesis Dr. Gary Petrocelli: 670 mL of blood-tinged cloudy fluid drained [...] 11/08/2022 Hypoxia 06/23/2021 11/08/2022 Pleural effusion, right 05/05/2020/0 11/2022 Overview: Now seeing Dr. Mariee Thoracic aorta atherosclerosis 03/23/2020 09/23/2020 Chronic systolic heart failure 11/21/2019 09/23/2020 Fatigue 11/24/2016 10/10/2017 Atrial fibrillation 01/14/2014 10/11/19 Centrilobular emphysema 01/14/201411/2022 Multiple thyroid nodules 03/03/2011 Hypertension 01/19/2011 06/23/2015 Esophagitis, unspecified 01/13/200901/2018 Gastrointestinal malfunction arising from mental factors 12/09/2008 10/10/2017 Nontoxic multinodular goiter 12/08/2008 05/08/2018 Dysphagia, unspecified(787.20) 05/08/2018 documented as of this encounter (statuses as of 03/15/2023) [facility]04-17-2023 History of Past illness Narrative* Problem Noted [...] transition of care 07/20/2021 07/26/2022 Overview: Facility: [facility] Date of admission 07/14/2021 Date of discharge Prehospital work-up: Presented to 07/14/2021 to [facility] ED complaining of left-sided abdominal pain with multiple symptoms including cough, myalgias, nasal congestion, low dietary intake due to concerns that would aggravate stomach ache. Patient was exposed to Covid 2 weeks prior, unvaccinated. Vital signs: 98.3 B-[id number]/102-93% RA. Exam description: Tired, alert and nontoxic, [...] he could be done outpatient. 07/15/2021 consultation program director/traffic director Dr. Dwayne Garcia: Assessment right pleural effusion: Continue diuretic therapy, empiric antimicrobials, thoracentesis recommended, eventual right heart cath work and secondary work-up for pH outpatient basis. 07/15/2021 echocardiogram: LV size and LV SF WNL, EF 60 to 65%. RV normal size and RV SF EF. Left atrium moderately enlarged, right atrium mildly enlarged. MV: Moderate mitral annular calcification, 1-2+ WV. TV: Normal. AV: Diffuse aortic valve calcification. 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 05/08/2018 Dysphagia, unspecified(787.20) 05/08/2018 documented as of this encounter (statuses as of 03/31/2023) [facility]04-17-2023 History of Past illness Narrative* Problem Noted [...] transition of care 07/20/2021 07/26/2022 Overview: Facility: [facility] Date of admission 07/14/2021 Date of discharge Prehospital work-up: Presented to 07/14/2021 to [facility] ED complaining of left-sided abdominal pain with multiple symptoms including cough, myalgias, nasal congestion, low dietary intake due to concerns that would aggravate stomach ache. Patient was exposed to Covid 2 weeks prior, unvaccinated. Vital signs: 98.3 G-[id number]/102-93% RA. Exam description: Tired, alert and nontoxic, [...] he could be done outpatient. 07/15/2021 consultation program director/traffic director Dr. Dwayne Garcia: Assessment right pleural effusion: Continue diuretic therapy, empiric antimicrobials, thoracentesis recommended, eventual right heart cath work and secondary work-up for pH outpatient basis. 07/15/2021 echocardiogram: LV size and LV SF WNL, EF 60 to 65%. RV normal size and RV SF EF. Left atrium moderately enlarged, right atrium mildly enlarged. MV: Moderate mitral annular calcification, 1-2+ WV. TV: Normal. AV: Diffuse aortic valve calcification. [...] infectious process 07/16/2021: Ultrasound-guided thoracentesis Dr. Gary Petrocelli: 670 mL of blood-tinged cloudy fluid drained [...] 11/08/2022 Hypoxia 06/23/2021 11/08/2022 Pleural effusion, right 05/05/2020/0 11/2022 Overview: Now seeing Dr. Mariee Thoracic aorta atherosclerosis 03/23/2020 09/23/2020 Chronic systolic heart failure 11/21/2019 09/23/2020 Fatigue 11/24/2016 10/10/2017 Atrial fibrillation 01/14/2014 10/11/19 Centrilobular emphysema 01/14/201411/2022 Multiple thyroid nodules 03/03/2011 Hypertension 01/19/2011 06/23/2015 Esophagitis, unspecified 01/13/200901/2018 Gastrointestinal malfunction arising from mental factors 12/09/2008 10/10/2017 Nontoxic multinodular goiter 12/08/2008 05/08/2018 Dysphagia, unspecified(787.20) 05/08/2018 documented as of this encounter (statuses as of 04/09/2023) [facility]-17[facility]2023 History of Past illness Narrative* Problem Noted [...] transition of care 07/20/2021 07/26/2022 Overview: Facility: [facility] Date of admission 07/14/2021 Date of discharge Prehospital work-up: Presented to 07/14/2021 to [facility] ED complaining of left-sided abdominal pain with multiple symptoms including cough, myalgias, nasal congestion, low dietary intake due to concerns that would aggravate stomach ache. Patient was exposed to Covid 2 weeks prior, unvaccinated. Vital signs: 98.3 D-[id number]/102-93% RA. Exam description: Tired, alert and nontoxic, [...] he could be done outpatient. 07/15/2021 consultation program director/traffic director Dr. Dwayne Garcia: Assessment right pleural effusion: Continue diuretic therapy, empiric antimicrobials, thoracentesis recommended, eventual right heart cath work and secondary work-up for pH outpatient basis. 07/15/2021 echocardiogram: LV size and LV SF WNL, EF 60 to 65%. RV normal size and RV SF EF. Left atrium moderately enlarged, right atrium mildly enlarged. MV: Moderate mitral annular calcification, 1-2+ WV. TV: Normal. AV: Diffuse aortic valve calcification. 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 05/08/2018 Dysphagia, unspecified(787.20) 05/08/2018 documented as of this encounter (statuses as of 04/09/2023) [facility]-17[facility] History of Past illness Narrative* Problem Noted [...] transition of care 07/20/2021 07/26/2022 Overview: Facility: [facility] Date of admission 07/14/2021 Date of discharge Prehospital work-up: Presented to 07/14/2021 to [facility] ED complaining of left-sided abdominal pain with multiple symptoms including cough, myalgias, nasal congestion, low dietary intake due to concerns that would aggravate stomach ache. Patient was exposed to Covid 2 weeks prior, unvaccinated. Vital signs: 98.3 A-551-66-143/102-93% RA. Exam description: Tired, alert and nontoxic, [...] he could be done outpatient. 07/15/2021 consultation program director/traffic director Dr. Dwayne Garcia: Assessment right pleural effusion: Continue diuretic therapy, empiric antimicrobials, thoracentesis recommended, eventual right heart cath work and secondary work-up for pH outpatient basis. 07/15/2021 echocardiogram: LV size and LV SF WNL, EF 60 to 65%. RV normal size and RV SF EF. Left atrium moderately enlarged, right atrium mildly enlarged. MV: Moderate mitral annular calcification, 1-2+ WV. TV: Normal. AV: Diffuse aortic valve calcification. [...] infectious process 07/16/2021: Ultrasound-guided thoracentesis Dr. Gary Petrocelli: 670 mL of blood-tinged cloudy fluid drained [...] 11/08/2022 Hypoxia 06/23/2021 11/08/2022 Pleural effusion, right 05/05/2020/0 11/2022 Overview: Now seeing Dr. Mariee Thoracic aorta atherosclerosis 03/23/2020 09/23/2020 Chronic systolic heart failure 11/21/2019 09/23/2020 Fatigue 11/24/2016 10/10/2017 Atrial fibrillation 01/14/2014 10/11/19 Centrilobular emphysema 01/14/201411/2022 Multiple thyroid nodules 03/03/2011 Hypertension 01/19/2011 06/23/2015 Esophagitis, unspecified 01/13/200901/2018 Gastrointestinal malfunction arising from mental factors 12/09/2008 10/10/2017 Nontoxic multinodular goiter 12/08/2008 05/08/2018 Dysphagia, unspecified(787.20) 05/08/2018 documented as of this encounter (statuses as of 04/12/2023) [facility]-17[facility] History of Past illness Narrative* Problem Noted [...] transition of care 07/20/2021 07/26/2022 Overview: Facility: [facility] Date of admission 07/14/2021 Date of discharge Prehospital work-up: Presented to 07/14/2021 to [facility] ED complaining of left-sided abdominal pain with multiple symptoms including cough, myalgias, nasal congestion, low dietary intake due to concerns that would aggravate stomach ache. Patient was exposed to Covid 2 weeks prior, unvaccinated. Vital signs: 98.3 U-[id number]/102-93% RA. Exam description: Tired, alert and nontoxic, [...] he could be done outpatient. 07/15/2021 consultation program director/traffic director Dr. Dwayne Garcia: Assessment right pleural effusion: Continue diuretic therapy, empiric antimicrobials, thoracentesis recommended, eventual right heart cath work and secondary work-up for pH outpatient basis. 07/15/2021 echocardiogram: LV size and LV SF WNL, EF 60 to 65%. RV normal size and RV SF EF. Left atrium moderately enlarged, right atrium mildly enlarged. MV: Moderate mitral annular calcification, 1-2+ WV. TV: Normal. AV: Diffuse aortic valve calcification. 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 05/08/2018 Dysphagia, unspecified(787.20) 05/08/2018 documented as of this encounter (statuses as of 05/02/2023) [facility] History of Past illness Narrative* Problem Noted [...] transition of care 07/20/2021 07/26/2022 Overview: Facility: [facility] Date of admission 07/14/2021 Date of discharge Prehospital work-up: Presented to 07/14/2021 to [facility] ED complaining of left-sided abdominal pain with multiple symptoms including cough, myalgias, nasal congestion, low dietary intake due to concerns that would aggravate stomach ache. Patient was exposed to Covid 2 weeks prior, unvaccinated. Vital signs: 98.3 U-012-77-143/102-93% RA. Exam description: Tired, alert and nontoxic, [...] he could be done outpatient. 07/15/2021 consultation program director/traffic director Dr. Dwayne Garcia: Assessment right pleural effusion: Continue diuretic therapy, empiric antimicrobials, thoracentesis recommended, eventual right heart cath work and secondary work-up for pH outpatient basis. 07/15/2021 echocardiogram: LV size and LV SF WNL, EF 60 to 65%. RV normal size and RV SF EF. Left atrium moderately enlarged, right atrium mildly enlarged. MV: Moderate mitral annular calcification, 1-2+ WV. TV: Normal. AV: Diffuse aortic valve calcification. [...] infectious process 07/16/2021: Ultrasound-guided thoracentesis Dr. Gary Petrocelli: 670 mL of blood-tinged cloudy fluid drained [...] 11/08/2022 Hypoxia 06/23/2021 11/08/2022 Pleural effusion, right 05/05/2020/0 11/2022 Overview: Now seeing Dr. Mariee Thoracic aorta atherosclerosis 03/23/2020 09/23/2020 Chronic systolic heart failure 11/21/2019 09/23/2020 Fatigue 11/24/2016 10/10/2017 Atrial fibrillation 01/14/2014 10/11/19 Centrilobular emphysema 01/14/201411/2022 Multiple thyroid nodules 03/03/2011 Hypertension 01/19/2011 06/23/2015 Esophagitis, unspecified 01/13/200901/2018 Gastrointestinal malfunction arising from mental factors 12/09/2008 10/10/2017 Nontoxic multinodular goiter 12/08/2008 05/08/2018 Dysphagia, unspecified(787.20) 05/08/2018 documented as of this encounter (statuses as of 05/02/2023) [facility] History of Past illness Narrative* Problem Noted [...] transition of care 07/20/2021 07/26/2022 Overview: Facility: [facility] Date of admission 07/14/2021 Date of discharge Prehospital work-up: Presented to 07/14/2021 to [facility] ED complaining of left-sided abdominal pain with multiple symptoms including cough, myalgias, nasal congestion, low dietary intake due to concerns that would aggravate stomach ache. Patient was exposed to Covid 2 weeks prior, unvaccinated. Vital signs: 98.3 T-108-74-143/102-93% RA. Exam description: Tired, alert and nontoxic, [...] he could be done outpatient. 07/15/2021 consultation program director/traffic director Dr. Dwayne Garcia: Assessment right pleural effusion: Continue diuretic therapy, empiric antimicrobials, thoracentesis recommended, eventual right heart cath work and secondary work-up for pH outpatient basis. 07/15/2021 echocardiogram: LV size and LV SF WNL, EF 60 to 65%. RV normal size and RV SF EF. Left atrium moderately enlarged, right atrium mildly enlarged. MV: Moderate mitral annular calcification, 1-2+ WV. TV: Normal. AV: Diffuse aortic valve calcification. 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 05/08/2018 Dysphagia, unspecified(787.20) 05/08/2018 documented as of this encounter (statuses as of 05/03/2023) [facility] History of Past illness Narrative* Problem Noted [...] transition of care 07/20/2021 07/26/2022 Overview: Facility: [facility] Date of admission 07/14/2021 Date of discharge Prehospital work-up: Presented to 07/14/2021 to [facility] ED complaining of left-sided abdominal pain with multiple symptoms including cough, myalgias, nasal congestion, low dietary intake due to concerns that would aggravate stomach ache. Patient was exposed to Covid 2 weeks prior, unvaccinated. Vital signs: 98.3 O-554-80-143/102-93% RA. Exam description: Tired, alert and nontoxic, [...] he could be done outpatient. 07/15/2021 consultation program director/traffic director Dr. Dwayne Garcia: Assessment right pleural effusion: Continue diuretic therapy, empiric antimicrobials, thoracentesis recommended, eventual right heart cath work and secondary work-up for pH outpatient basis. 07/15/2021 echocardiogram: LV size and LV SF WNL, EF 60 to 65%. RV normal size and RV SF EF. Left atrium moderately enlarged, right atrium mildly enlarged. MV: Moderate mitral annular calcification, 1-2+ WV. TV: Normal. AV: Diffuse aortic valve calcification. [...] infectious process 07/16/2021: Ultrasound-guided thoracentesis Dr. Gary Petrocelli: 670 mL of blood-tinged cloudy fluid drained [...] 11/08/2022 Hypoxia 06/23/2021 11/08/2022 Pleural effusion, right 05/05/2020/0 11/2022 Overview: Now seeing Dr. Mariee Thoracic aorta atherosclerosis 03/23/2020 09/23/2020 Chronic systolic heart failure 11/21/2019 09/23/2020 Fatigue 11/24/2016 10/10/2017 Atrial fibrillation 01/14/2014 10/11/19 Centrilobular emphysema 01/14/201411/2022 Multiple thyroid nodules 03/03/2011 Hypertension 01/19/2011 06/23/2015 Esophagitis, unspecified 01/13/200901/2018 Gastrointestinal malfunction arising from mental factors 12/09/2008 10/10/2017 Nontoxic multinodular goiter 12/08/2008 05/08/2018 Dysphagia, unspecified(787.20) 05/08/2018 documented as of this encounter (statuses as of 05/05/2023) [facility]-17-2023 History of Past illness Narrative* Problem Noted [...] transition of care 07/20/2021 07/26/2022 Overview: Facility: [facility] Date of admission 07/14/2021 Date of discharge Prehospital work-up: Presented to 07/14/2021 to [facility] ED complaining of left-sided abdominal pain with multiple symptoms including cough, myalgias, nasal congestion, low dietary intake due to concerns that would aggravate stomach ache. Patient was exposed to Covid 2 weeks prior, unvaccinated. Vital signs: 98.3 [id number]/102-93% RA. Exam description: Tired, alert and nontoxic, [...] he could be done outpatient. 07/15/2021 consultation program director/traffic director Dr. Dwayne Garcia: Assessment right pleural effusion: Continue diuretic therapy, empiric antimicrobials, thoracentesis recommended, eventual right heart cath work and secondary work-up for pH outpatient basis. 07/15/2021 echocardiogram: LV size and LV SF WNL, EF 60 to 65%. RV normal size and RV SF EF. Left atrium moderately enlarged, right atrium mildly enlarged. MV: Moderate mitral annular calcification, 1-2+ WV. TV: Normal. AV: Diffuse aortic valve calcification. 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 05/08/2018 Dysphagia, unspecified(787.20) 05/08/2018 documented as of this encounter (statuses as of 05/10/2023) [facility] History of Past illness Narrative* Problem Noted [...] transition of care 07/20/2021 07/26/2022 Overview: Facility: [facility] Date of admission 07/14/2021 Date of discharge Prehospital work-up: Presented to 07/14/2021 to [facility] ED complaining of left-sided abdominal pain with multiple symptoms including cough, myalgias, nasal congestion, low dietary intake due to concerns that would aggravate stomach ache. Patient was exposed to Covid 2 weeks prior, unvaccinated. Vital signs: 98.3 [id number]/102-93% RA. Exam description: Tired, alert and nontoxic, [...] he could be done outpatient. 07/15/2021 consultation program director/traffic director Dr. Dwayne Garcia: Assessment right pleural effusion: Continue diuretic therapy, empiric antimicrobials, thoracentesis recommended, eventual right heart cath work and secondary work-up for pH outpatient basis. 07/15/2021 echocardiogram: LV size and LV SF WNL, EF 60 to 65%. RV normal size and RV SF EF. Left atrium moderately enlarged, right atrium mildly enlarged. MV: Moderate mitral annular calcification, 1-2+ WV. TV: Normal. AV: Diffuse aortic valve calcification. [...] infectious process 07/16/2021: Ultrasound-guided thoracentesis Dr. Gary Petrocelli: 670 mL of blood-tinged cloudy fluid drained [...] 11/08/2022 Hypoxia 06/23/2021 11/08/2022 Pleural effusion, right 05/05/2020/0 11/2022 Overview: Now seeing Dr. Mariee Thoracic aorta atherosclerosis 03/23/2020 09/23/2020 Chronic systolic heart failure 11/21/2019 09/23/2020 Fatigue 11/24/2016 10/10/2017 Atrial fibrillation 01/14/2014 10/11/19 Centrilobular emphysema 01/14/201411/2022 Multiple thyroid nodules 03/03/2011 Hypertension 01/19/2011 06/23/2015 Esophagitis, unspecified 01/13/200901/2018 Gastrointestinal malfunction arising from mental factors 12/09/2008 10/10/2017 Nontoxic multinodular goiter 12/08/2008 05/08/2018 Dysphagia, unspecified(787.20) 05/08/2018 documented as of this encounter (statuses as of 05/11/2023) [facility] History of Past illness Narrative* Problem Noted [...] transition of care 07/20/2021 07/26/2022 Overview: Facility: [facility] Date of admission 07/14/2021 Date of discharge Prehospital work-up: Presented to 07/14/2021 to [facility] ED complaining of left-sided abdominal pain with multiple symptoms including cough, myalgias, nasal congestion, low dietary intake due to concerns that would aggravate stomach ache. Patient was exposed to Covid 2 weeks prior, unvaccinated. Vital signs: 98.3 [id number]/102-93% RA. Exam description: Tired, alert and nontoxic, [...] he could be done outpatient. 07/15/2021 consultation program director/traffic director Dr. Dwayne Garcia: Assessment right pleural effusion: Continue diuretic therapy, empiric antimicrobials, thoracentesis recommended, eventual right heart cath work and secondary work-up for pH outpatient basis. 07/15/2021 echocardiogram: LV size and LV SF WNL, EF 60 to 65%. RV normal size and RV SF EF. Left atrium moderately enlarged, right atrium mildly enlarged. MV: Moderate mitral annular calcification, 1-2+ WV. TV: Normal. AV: Diffuse aortic valve calcification. 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 05/08/2018 Dysphagia, unspecified(787.20) 05/08/2018 documented as of this encounter (statuses as of 05/13/2023) [facility] History of Past illness Narrative* Problem Noted [...] transition of care 07/20/2021 07/26/2022 Overview: Facility: [facility] Date of admission 07/14/2021 Date of discharge Prehospital work-up: Presented to 07/14/2021 to [facility] ED complaining of left-sided abdominal pain with multiple symptoms including cough, myalgias, nasal congestion, low dietary intake due to concerns that would aggravate stomach ache. Patient was exposed to Covid 2 weeks prior, unvaccinated. Vital signs: 98.3 E-[id number]/102-93% RA. Exam description: Tired, alert and nontoxic, [...] he could be done outpatient. 07/15/2021 consultation program director/traffic director Dr. Dwayne Garcia: Assessment right pleural effusion: Continue diuretic therapy, empiric antimicrobials, thoracentesis recommended, eventual right heart cath work and secondary work-up for pH outpatient basis. 07/15/2021 echocardiogram: LV size and LV SF WNL, EF 60 to 65%. RV normal size and RV SF EF. Left atrium moderately enlarged, right atrium mildly enlarged. MV: Moderate mitral annular calcification, 1-2+ WV. TV: Normal. AV: Diffuse aortic valve calcification. [...] infectious process 07/16/2021: Ultrasound-guided thoracentesis Dr. Gary Petrocelli: 670 mL of blood-tinged cloudy fluid drained [...] of this encounter (statuses as of 05/26/2023) [facility]04-03-2023 NoteHNO ID: [id number] Author: Apoorva Palma RDMS Service: ? Author Type: Household Appliance Repairer Type: Progress Notes Filed: 09/05/2022 2:26 PM [...] Palma RDMS RVT September 05, 2022 2:26 [facility]04-03-2023 History of Present illness Narrative* Apoorva Palma [...] 05, 2022 2:26 PM documented in this encounterBelle[facility]03-[facility]23 NoteHNO ID: [id number] Author: Wes Bonilla MD Service: ? Author [...] FORTICAL) 200 unit/actuation nasal spray Use 1 [place] in the nose once daily. Back Brace [...] all other days-pt started this dosing on 9/16/22.) amiodarone (PACERONE) 200 mg tablet Take 0.5 [...] rash. PAST MEDICAL HISTORY Diagnosis Date A-fib ([facility]) Class 1 congestive heart failure, unspecified failure chronicity, systolic ([facility]) 11/21/2019 Dysphagia, unspecified(787.20) Esophageal reflux Esophagitis, unspecified Marfan's syndrome Moderate mitral regurgitation 06/18/2021 04/27/21 Echo at [facility]. Pleural effusion, right 05/05/2020 CXR 11/18/19 and [...] other (marfan syndrome) Mother (more content not included)...[facility]03-30-2023 History of Present illness Narrative* Wes [...] FORTICAL) 200 unit/actuation nasal spray Use 1 [place] in the nose once daily. Back Brace [...] Moderate mitral regurgitation 06/18/2021 04/27/21 Echo at [facility]. Pleural effusion, right 05/05/2020 CXR 11/18/19 and [...] COMPLETE Wes Bonilla MD documented in this encounterBelle[facility] Hospital03-27-2023 NoteHNO ID: [id number] Author: Cadence Bustillo LPN Service: ? Author [...] try the gabapentin. Please send to [facility] for her.[facility]03-27-2023 NoteHNO ID: [id number] Author: Wes Bonilla MD Service: ? Author Type: Physician Type: Progress Notes Filed: 08/29/2022 1:22 PM Note Text: Her miacalcin should also help with pain, let her know we can add something like gabapentin if she Is willing. Let me knowParkwood Hospital03-27-2023 Miscellaneous Notes* Addendum Note - Wes Bonilla MD - 08/29/2022 2:11 PM EDTAddended by: WES BONILLA on: 08/29/2022 02:11 PM Modules accepted: Orders documented in this encounterBellevue Hospital03-27-2023 NotePatient Outreach ([facility]) MARCIALNIMISHA ([id number]) 1945 F Date Time Provider Department 08/29/22 MICHELLE ROCHA During your visit today, we recorded the following information about you: Michelle Rocha RN 08/29/2022 12:20 PM Signed INSIGHT [facility] TELEPHONIC OUTREACH Provider Action/FYI: Pt [...] like to speak with a social work [employer] sales and lending team member to help give you support for any [...] you up for automated weekly questionnaires through RawData. This is an easy way for us [...] try the gabapentin. Please send to [facility] for her. Wes Bonilla MD 08/29/2022 2:11 [...] LATEX 12/08/2008 2 - (more content not included)...[facility] 08-29-2022 NoteHNO ID: [id number] Author: Michelle Rocha RN Service: ? Author [...] like to speak with a social work [employer] sales and lending team member to help give you support for any [...] you up for automated weekly questionnaires through [employer]. This is an easy way for us [...] in the Track Pt Outreach and End outreach.[facility] 08-29-2022 History of Present illness Narrative* Cadence Iwona HUBER - 08/29/2022 1:39 PM EDT Patient states [...] try the gabapentin. Please send to [facility] for her. * Wes Bonilla MD - [...] like to speak with a social work [employer] sales and lending team member to help give you support for any [...] you up for automated weekly questionnaires through [employer]Data. This is an easy way for us [...] PtOutreach and End outreach. documented in this encounterB[facility]03-[facility]-2023 NoteHNO ID: [id number] Author: Wes Bonilla MD Service: ? Author Type: Physician Type: Progress Notes Filed: 08/23/2022 2:25 PM Note Text: agreeParkwood Hospital03-21-2023 NoteHNO ID: [id number] Author: Yanely Posadas RN Service: ? Author Type: ? Type: Progress Notes Filed: 08/23/2022 2:25 PM Note Text: patient had inr completed at [facility] patients inr is 2.9 (patients inr range [...] in 4 weeks (09/20/22) for follow up INR.[facility]03-21-2023 History of Present illness Narrative* Wes Bonilla MD - 08/23/2022 2:24 PM EDT agree * Yanely Posadas RN - 08/23/2022 1:54 PM EDT patient had inr completed at [facility] patients inr is 2.9 (patients inr range [...] for follow up INR. documented in this encounterBellevue Hospital03-17-2023 Miscellaneous Notes* Telephone Encounter - Ely Strauss [...] not picked up the back brace from [facility] yet, asking if this is ok to [...] habit forming. * Telephone Encounter - Deana Colemna RN - 08/19/2022 12:23 PM EDT Patient calls and is asking about MRI results for back? Patient also states that she continues to be in a lot of pain. Patient asking if provider can prescribe something for the pain? Please review and advise, Deana Coleman RN documented in this encounterBellevue Hospital03-16-2023 NoteHNO ID: [id number] Author: RT Myrtle(Zenaida) Service: ? Author Type: Technologist Type: Progress [...] BY: RT Myrtle(R) August 18, 2022 12:02 [facility]03-16-2023 History of Present illness Narrative* Debbie Solano RT(R) - 08/18/2022 11:20 AM EDT Radiology Service [...] BY: RT Myrtle(R) August 18, 2022 12:02 PM documented in this encounterBellevue Hospital02-23-2023 NoteHNO ID: [id number] Author: Wes Bonilla MD Service: ? Author [...] FORTICAL) 200 unit/actuation nasal spray Use 1 [place] in the nose once daily. omeprazole (PRILOSEC) [...] rash. PAST MEDICAL HISTORY Diagnosis Date A-fib ([facility]) Class 1 congestive heart failure, unspecified failure chronicity, systolic ([facility]) 11/21/2019 Dysphagia, unspecified(787.20) Esophageal reflux Esophagitis, unspecified Marfan's syndrome Moderate mitral regurgitation 06/18/2021 04/27/21 Echo at [facility]. Pleural effusion, right 05/05/2020 CXR 11/18/19 and [...] Use Topics Alcohol us (more content not included)...[facility]02-23-[facility]23 History of Present illness Narrative* Wes [...] FORTICAL) 200 unit/actuation nasal spray Use 1 [place] in the nose once daily. omeprazole (PRILOSEC) [...] rash. PAST MEDICAL HISTORY Diagnosis Date A-fib ([facility]) Class 1 congestive heart failure, unspecified failure chronicity, systolic ([facility]) 11/21/2019 Dysphagia, unspecified(787.20) Esophageal reflux Esophagitis, unspecified Marfan's syndrome Moderate mitral regurgitation 06/18/2021 04/27/21 Echo at [facility]. Pleural effusion, right 05/05/2020 CXR 11/18/19 and [...] stable. Wes Bonilla MD documented in this encounterBellevue Hospital02-16-2023 NoteHNO ID: [id number] Author: Monroe Santoyo MD Service: ? Author Type: Physician Type: Progress Notes Filed: 07/21/2022 3:25 PM Note Text: No changes in coumadin dosing needed. Agree with next INR check.[facility]02-16-2023 NoteHNO ID: [id number] Author: Yanely Posadas RN Service: ? Author Type: ? Type: Progress Notes Filed: 07/21/2022 3:25 PM Note Text: patient had inr completed at [facility] patients inr is 2.4 (patients inr range [...] in 4 weeks (08/18/22) for follow up INR.[facility]02-16-[facility]23 History of Present illness Narrative* Monroe Santoyo MD - 07/21/2022 3:25 PM EST No changes in coumadin dosing needed. Agree with next INR check. * Yanely Posadas RN - 07/21/2022 2:37 PM EST patient had inr completed at [facility] patients inr is 2.4 (patients inr range [...] for follow up INR. documented in this encounterBellevue Hospital02-09-2023 NoteHNO ID: [id number] Author: RT Shine(R) Service: ? Author Type: Gynecology Teacher Type: Progress Notes Filed: 07/14/2022 2:41 PM Note Text: Radiology Service Progress Note PATIENT NAME: Nimisha Ceja DATE OF SERVICE: July 14, 2022 TIME: [...] BY: RT Shine(R) July 14, 2022 2:25 [facility]02-09-2023 NoteHNO ID: [id number] Author: Wes Bonilla MD Service: ? Author [...] Moderate mitral regurgitation 06/18/2021 04/27/21 Echo at [facility]. Pleural effusion, right 05/05/2020 CXR 11/18/19 and [...] gallop, or rub (more content not included)... [facility]02-02-2023 NoteHNO ID: [id number] Author: Yanely Posadas RN Service: ? Author Type: ? Type: Progress Notes Filed: 07/07/2022 2:05 PM Note Text: patient had inr completed at [facility] patients inr is 1.8 (patients inr range [...] is most likely caused by the missed dosesParkwood Hospital02-02-2023 History of Present illness Narrative* Yanely Posadas RN - 07/07/2022 2:03 PM EST patient had inr completed at [facility] patients inr is 1.8 (patients inr range [...] by the missed doses documented in this encounterBellevue Hospital01-30-2023 NoteHNO ID: [id number] Author: Bubba Dawn Service: ? Author Type: ? Type: Progress Notes Filed: 07/04/2022 12:37 PM Note Text: POPULATION HEALTH NAVIGATION OUTREACH Action/FYI 1st call, [...] Signature: Bubba Dawn July 04, 2022 12:36 [facility]01-30-2023 Miscellaneous Notes* Telephone Encounter - Isaiah Skinner [...] for thyroid biopsy per TE 06/29/22. Airam Ayon RN documented in this encounterBellevue Hospital01-30-2023 NotePatient Outreach ([facility]) NIMISHA CEJA ([id number]) 1945 F Date Time Provider Department 07/04/22 PCP (HISTORICAL) [facility] During your visit today, we recorded the following information about you: Bubba Dawn 07/04/2022 12:37 PM Signed POPULATION HEALTH NAVIGATION OUTREACH Action/ 1st call, pt wants to wait to [...] W, , 2 mg all other days. - amiodarone [...] 04/19/2022 Encounter Status:Closed by BUBBA DAWN on 07/04/22[facility] 07-04[facility] History of Present illness Narrative* Bubba Dawn - 07/04/2022 12:36 PM EST POPULATION HEALTH NAVIGATION OUTREACH Action/FYI 1st call, [...] visits Payer: Payor: [employer] MEDICARE / Plan: [employer] MEDICARE PPO / Product Type: PPO / [...] 04, 2022 12:36 PM documented in this encounterBellevue Hospital01-26-2023 Miscellaneous Notes* Telephone Encounter - Debbie Long [...] She reports she normally takes 4 mg Mon/Tue and 2 mg all other days. She was asking if she should take a 4 mg on Th since she missed the Tue dose or if she should only take the 2 mg. Please call and advise. documented in this encounterBellevue Hospital01-25-2023 NoteHNO ID: [id number] Author: Shanta Logan APRN.INDUSTRIAL CHEMICALS SUPERVISOR Service: ? Author Type: Nurse Practitioner Type: [...] history is provided by the patient. No educational interpreter was used. Review of Systems Constitutional: Negative. Skin: Negative. Objective Physical Exam Constitutional: Appearance: Normal appearance. Pulmonary: Effort: Pulmonary effort is normal. Musculoskeletal: Arms: Comments: Patient is tender in the middle the purple area no swelling bruising noted. Neurological: Mental Status: She is alert. PAST MEDICAL HISTORY Diagnosis Date A-fib ([facility]) Class 1 congestive heart failure, unspecified failure chronicity, systolic ([facility]) 11/21/2019 Dysphagia, unspecified(787.20) Esophageal reflux Esophagitis, unspecified Marfan's syndrome Moderate mitral regurgitation 06/18/2021 04/27/21 Echo at [facility]. Pleural effusion, right 05/05/2020 CXR 11/18/19 and [...] okay with this care plan. Shanta Logan APRN.[facility]01[facility] History of Present illness Narrative* Shanta Logan APRN.INDUSTRIAL CHEMICALS SUPERVISOR - 06/29/2022 3:59 PM EST Images from [...] history is provided by the patient. No educational interpreter was used. Review of Systems Constitutional: Negative. Skin: Negative. Objective Physical Exam Constitutional: Appearance: Normal appearance. Pulmonary: Effort: Pulmonary effort is normal. Musculoskeletal: Arms: Comments: Patient is tender in the middle the purple area no swelling bruising noted. Neurological: Mental Status: She is alert. PAST MEDICAL HISTORY Diagnosis Date A-fib ([facility]) Class 1 congestive heart failure, unspecified failure chronicity, systolic ([facility]) 11/21/2019 Dysphagia, unspecified(787.20) Esophageal reflux Esophagitis, unspecified Marfan's syndrome Moderate mitral regurgitation 06/18/2021 04/27/21 Echo at [facility]. Pleural effusion, right 05/05/2020 CXR 11/18/19 and [...] plan. Shanta Logan APRN.TRICIA documented in this encounterBellevue Hospital01-17-2023 NotePatient Outreach ([facility]) NIMISHA CEJA ([id number]) 1945 F Date Time Provider Department 06/21/22 ELISABETH CANCHOLA During your visit today, we recorded the following information about you: Elisabeth Canchola, [place] 06/21/2022 1:03 PM Signed [facility]IGHT [facility] TELEPHONIC OUTREACH Provider Action/FYI: Patient reports she [...] like to speak with a social work [employer] sales and lending team member to help give you support for any [...] you up for automated weekly questionnaires through RawData. This is an easy way for us [...] Date Reviewed: 05/17/2022 Reviewed by: Shannon Chiu APRN.INDUSTRIAL CHEMICALS SUPERVISOR - Fully Assessed Reason for Visit: Community Monitoring Outreach [Other] Cmt: CDM Prescriptions as of 06/21/2022 - omeprazole (PRILOSEC) 40 mg capsule Take 1 capsule by mouth once daily. - metoprolol tartrate, short acting, (LOPRESSOR) 50 mg tablet Take 1 tablet by mouth twice daily. - warfarin (COUMADIN) 4 mg tablet 4 mg on , , , 2 mg all other days. - amiodarone [...] 06/21/2022 Noted Resolved Dysphagia, unspecified(787.20) [R13.10] 05/08/2018 GIGI'S (more content not included)...[facility]2023 Note HNO ID: [id number] Author: Elisabeth Canchola, RN Service: ? Author Type: Registered Nurse [...] like to speak with a social work [employer] sales and lending team member to help give you support for any [...] you up for automated weekly questionnaires through RawData. This is an easy way for us [...] in the Track Pt Outreach and End outreach.[facility] 06-21-2022 History of Present illness Narrative* Elisabeth Canchola RN - 06/21/2022 11:52 AM EST INSIGHT [facility] TELEPHONIC OUTREACH Provider Action/FYI: Patient reports she [...] like to speak with a social work [employer] sales and lending team member to help give you support for any [...] you up for automated weekly questionnaires through RawData. This is an easy way for us [...] PtOutreach and End outreach. documented in this encounterBellevue Hospital01-13-2023 Miscellaneous Notes* Telephone Encounter - Felisha Ordaz LPN - 06/17/2022 2:36 PM EST Patient calling started with symptoms few days ago, dry cough, congestion, sneezing. No appt available with PCP or HIGH SCHOOL VICE PRINCIPAL this afternoon. Advised patient to [facility] care for evaluation and gave herhours of operation. documented in this encounterBellevue Hospital12-30-2022 Miscellaneous Notes* Telephone Encounter - Usman Dunn RN - 06/03/2022 2:46 PM EST Faxed general surgery referral and US thyroid results to Dr. Abimael Evans, [facility], per patient request. . Reports Dr. Saab's office cancelled the appt with him b/c he will be out [facility]. Reports Dr. Maxine Evans agreeable to see [...] support you in caring for your patient. [facility] committed to providing safe care with [...] of the clinical team. documented in this encounterBellevue Hospital12-22-2022 History of Present illness Narrative* Wes Bonilla MD - 05/26/2022 2:55 PM EST agree * Yanely Posadas RN - 05/26/2022 2:30 PM EST patient had inr completed at [facility] patients inr is 2.8 (patients inr range [...] reading since dose change documented in this encounterBellevue Hospital12-17-2022 Miscellaneous Notes* Telephone Encounter - Yolis Tran RN - 05/21/2022 10:53 AM EST Pt called and is notified of providers results and instructions. Pt voices understanding. Pt put through to scheduling to set up and appointment with General Surgery. Yolis Tran RN * Telephone Encounter - Dalila Jensen APRN.CNP - 05/20/2022 6:11 PM EST Can please let patient know that we received her thyroid ultrasound results, which did show some thyroid nodules. They are recommending a biopsy of at least one of the nodules. We went ahead and placed the referral to general surgery. Please help schedule. documented in this encounterBellevue Hospital12-15-2022 History of Present illness Narrative* aYnely Posadas RN - 05/19/2022 3:15 PM EST PATIENT NOTIFIED OF INFORMATION * Eddie Nunez MD - 05/19/2022 2:52 PM EST INR slightly high. Decrease dose to 4 mg Mon, Tues and 2 mg all other days. Recheck in 1 week. * Yanely Posadas RN - 05/19/2022 2:34 PM EST patient had inr completed at [facility] patients inr is 3.2 (patients inr range [...] up inr on 05/26/22 documented in this encounterB[facility] History of Present illness Narrative* Elisabeth Canchola RN - 05/18/2022 11:15 AM EST INSIGHT CDM TELEPHONIC OUTREACH Provider Action/FYI: Patient seen at [facility] yesterday for rib pain from a [...] like to speak with a social work [employer] team member to help give you support for any [...] you up for automated weekly questionnaires through [employer]. This is an easy way for us [...] Pt Outreach. End outreach documented in this encounterBellevue Hospital12-13-2022 Instructions* Patient Instructions* Shannon Chiu APRN.[employer] SUPERVISOR - 05/17/2022 3:25 PM EST Warm compresses Encourage deep breathing. Tylenol as needed for pain Follow up with PCP as needed documented in this encounterBellevue Hospital12-13-2022 History of Present illness Narrative* Shannon Chiu APRN.CNP - 05/17/2022 2:38 PM EST Images from the original note were not included. Subjective The history is provided by the patient. No educational interpreter was used. HPI Nimisha Ceja is a [...] No PAST MEDICAL HISTORY Diagnosis Date A-fib ([facility]) Class 1 congestive heart failure, unspecified failure chronicity, systolic (HCC) 11/21/2019 Dysphagia, unspecified(787.20) Esophageal reflux Esophagitis, unspecified Marfan's syndrome Moderate mitral regurgitation 06/18/2021 04/27/21 Echo at [facility]. Pleural effusion, right 05/05/2020 CXR 11/18/19 and 05/04/20. Unspecified essential hypertension I have confirmed and edited as necessary, the [facility] Review of Systems Constitutional: Negative for chills [...] study. Interpreted by : MD Shannon WHALEN APRN.INDUSTRIAL [employer]MICALS SUPERVISOR documented in this encounterBellevue Hospital12-13-2022 History of Present illness Narrative* Apoorva Palma [...] 17, 2022 2:04 PM documented in this encounterBellevue Hospital11-22-2022 History of Present illness Narrative* Elisabeth Canchola [...] like to speak with a social work [employer] team member to help give you support for any [...] you up for automated weekly questionnaires through [employer]. This is an easy way for us [...] PtOutreach and End outreach. documented in this encounterBellevue Hospital11-16-2022 Miscellaneous Notes* Telephone Encounter - Alma Delia Doyle RN - 04/20/2022 9:01 AM EST Patient notified of message below. Alma Delia Doyle RN * Telephone Encounter - Wes Bonilla MD - 04/20/2022 8:37 AM EST Anemia is better. Kidney function slightly reduced. Cholesterol up slightly. Watch cholesterol in the diet. Recheck bmp in two weeks. documented in this encounterBellevue Hospital11-15-2022 Miscellaneous Notes* Telephone Encounter - Deana Coleman [...] narrative: no Protime 22.1 documented in this encounterBellevue Hospital11-15-2022 History of Past illness Narrative* Problem Noted Date Resolved Date Renal infarct 04/19/2022 07/26/2022 Overview: Has seen Dr. Chaney. Needs to just follow up prn. Pleural effusion 01/31/2022 04/19/2022 Encounter for support and coordination of transi tion of care 07/20/2021 07/26/2022 Overview: Facility: [facility] Date of admission 07/14/2021 Date of discharge Prehospital work-up: Presented to 07/14/2021 to [facility] ED complaining of left-sided abdominal pain with multiple symptoms including cough, myalgias, nasal congestion, low dietary intake due to concerns that would aggravate stomach ache. Patient was exposed to Covid 2 weeks prior, unvaccinated. Vital signs: 98.3 [id number]/102-93% RA. Exam description: Tired, alert and nontoxic, [...] he could be done outpatient. 07/15/2021 consultation program director/traffic director Dr. Dwayne Garcia: Assessment right pleural effusion: Continue diuretic therapy, empiric antimicrobials, thoracentesis recommended, eventual right heart cath work and secondary work-up for pH outpatient basis. 07/15/2021 echocardiogram: LV size and LV SF WNL, EF 60 to 65%. RV normal size and RV SF EF. Left atrium moderately enlarged, right atrium mildly enlarged. MV: Moderate mitral annular calcification, 1-2+ WV. TV: Normal. AV: Diffuse aortic valve calcification. [...] of this encounter (statuses as of 07/28/2022) [facility] of Past illness Narrative* Problem Noted Date Resolved Date Renal infarct 04/19/2022 07/26/2022 Overview: Has seen Dr. Chaney. Needs to just follow up prn. Pleural effusion 01/31/2022 04/19/2022 Encounter for support and coordination of transi tion of care 07/20/2021 07/26/2022 Overview: Facility: [facility] Date of admission 07/14/2021 Date of discharge Prehospital work-up: Presented to 07/14/2021 to [facility] ED complaining of left-sided abdominal pain with multiple symptoms including cough, myalgias, nasal congestion, low dietary intake due to concerns that would aggravate stomach ache. Patient was exposed to Covid 2 weeks prior, unvaccinated. Vital signs: 98.3 [id number]/102-93% RA. Exam description: Tired, alert and nontoxic, [...] he could be done outpatient. 07/15/2021 consultation program director/traffic director Dr. Dwayne Garcia: Assessment right pleural effusion: Continue diuretic therapy, empiric antimicrobials, thoracentesis recommended, eventual right heart cath work and secondary work-up for pH outpatient basis. 07/15/2021 echocardiogram: LV size and LV SF WNL, EF 60 to 65%. RV normal size and RV SF EF. Left atrium moderately enlarged, right atrium mildly enlarged. MV: Moderate mitral annular calcification, 1-2+ WV. TV: Normal. AV: Diffuse aortic valve calcification. [...] of this encounter (statuses as of 08/19/2022) [facility] of Past illness Narrative* Problem Noted Date Resolved Date Renal infarct 04/19/2022 07/26/2022 Overview: Has seen Dr. Chaney. Needs to just follow up prn. Pleural effusion 01/31/2022 04/19/2022 Encounter for support and coordination of transi tion of care 07/20/2021 07/26/2022 Overview: Facility: [facility] Date of admission 07/14/2021 Date of discharge Prehospital work-up: Presented to 07/14/2021 to [facility] ED complaining of left-sided abdominal pain with multiple symptoms including cough, myalgias, nasal congestion, low dietary intake due to concerns that would aggravate stomach ache. Patient was exposed to Covid 2 weeks prior, unvaccinated. Vital signs: 98.3 [id number]/102-93% RA. Exam description: Tired, alert and nontoxic, [...] he could be done outpatient. 07/15/2021 consultation program director/traffic director Dr. Dwayne Garcia: Assessment right pleural effusion: Continue diuretic therapy, empiric antimicrobials, thoracentesis recommended, eventual right heart cath work and secondary work-up for pH outpatient basis. 07/15/2021 echocardiogram: LV size and LV SF WNL, EF 60 to 65%. RV normal size and RV SF EF. Left atrium moderately enlarged, right atrium mildly enlarged. MV: Moderate mitral annular calcification, 1-2+ WV. TV: Normal. AV: Diffuse aortic valve calcification. [...] of this encounter (statuses as of 08/23/2022) [facility] of Past illness Narrative* Problem Noted Date Resolved Date Renal infarct 04/19/2022 07/26/2022 Overview: Has seen Dr. Chaney. Needs to just follow up prn. Pleural effusion 01/31/2022 04/19/2022 Encounter for support and coordination of transi tion of care 07/20/2021 07/26/2022 Overview: Facility: [facility] Date of admission 07/14/2021 Date of discharge Prehospital work-up: Presented to 07/14/2021 to [facility] ED complaining of left-sided abdominal pain with multiple symptoms including cough, myalgias, nasal congestion, low dietary intake due to concerns that would aggravate stomach ache. Patient was exposed to Covid 2 weeks prior, unvaccinated. Vital signs: 98.3 [id number]/102-93% RA. Exam description: Tired, alert and nontoxic, [...] he could be done outpatient. 07/15/2021 consultation program director/traffic director Dr. Dwayne Garcia: Assessment right pleural effusion: Continue diuretic therapy, empiric antimicrobials, thoracentesis recommended, eventual right heart cath work and secondary work-up for pH outpatient basis. 07/15/2021 echocardiogram: LV size and LV SF WNL, EF 60 to 65%. RV normal size and RV SF EF. Left atrium moderately enlarged, right atrium mildly enlarged. MV: Moderate mitral annular calcification, 1-2+ WV. TV: Normal. AV: Diffuse aortic valve calcification. [...] of this encounter (statuses as of 08/29/2022) [facility] Past illness Narrative* Problem Noted Date Resolved Date Renal infarct 04/19/2022 07/26/2022 Overview: Has seen Dr. Chaney. Needs to just follow up prn. Pleural effusion 01/31/2022 04/19/2022 Encounter for support and coordination of transi tion of care 07/20/2021 07/26/2022 Overview: Facility: [facility] Date of admission 07/14/2021 Date of discharge Prehospital work-up: Presented to 07/14/2021 to [facility] ED complaining of left-sided abdominal pain with multiple symptoms including cough, myalgias, nasal congestion, low dietary intake due to concerns that would aggravate stomach ache. Patient was exposed to Covid 2 weeks prior, unvaccinated. Vital signs: 98.3 [id number]/102-93% RA. Exam description: Tired, alert and nontoxic, [...] he could be done outpatient. 07/15/2021 consultation program director/traffic director Dr. Dwayne Garcia: Assessment right pleural effusion: Continue diuretic therapy, empiric antimicrobials, thoracentesis recommended, eventual right heart cath work and secondary work-up for pH outpatient basis. 07/15/2021 echocardiogram: LV size and LV SF WNL, EF 60 to 65%. RV normal size and RV SF EF. Left atrium moderately enlarged, right atrium mildly enlarged. MV: Moderate mitral annular calcification, 1-2+ WV. TV: Normal. AV: Diffuse aortic valve calcification. [...] of this encounter (statuses as of 09/01/2022) [facility] of Past illness Narrative* Problem Noted Date Resolved Date Renal infarct 04/19/2022 07/26/2022 Overview: Has seen Dr. Chaney. Needs to just follow up prn. Pleural effusion 01/31/2022 04/19/2022 Encounter for support and coordination of transi tion of care 07/20/2021 07/26/2022 Overview: Facility: [facility] Date of admission 07/14/2021 Date of discharge Prehospital work-up: Presented to 07/14/2021 to [facility] ED complaining of left-sided abdominal pain with multiple symptoms including cough, myalgias, nasal congestion, low dietary intake due to concerns that would aggravate stomach ache. Patient was exposed to Covid 2 weeks prior, unvaccinated. Vital signs: 98.3 F-225-63-143/102-93% RA. Exam description: Tired, alert and nontoxic, [...] he could be done outpatient. 07/15/2021 consultation program director/traffic director Dr. Dwayne Garcia: Assessment right pleural effusion: Continue diuretic therapy, empiric antimicrobials, thoracentesis recommended, eventual right heart cath work and secondary work-up for pH outpatient basis. 07/15/2021 echocardiogram: LV size and LV SF WNL, EF 60 to 65%. RV normal size and RV SF EF. Left atrium moderately enlarged, right atrium mildly enlarged. MV: Moderate mitral annular calcification, 1-2+ WV. TV: Normal. AV: Diffuse aortic valve calcification. [...] of this encounter (statuses as of 09/19/2022) [facility] illness Narrative* Problem Noted Date Resolved Date Renal infarct 04/19/2022 07/26/2022 Overview: Has seen Dr. Chaney. Needs to just follow up prn. Pleural effusion 01/31/2022 04/19/2022 Encounter for support and coordination of transi tion of care 07/20/2021 07/26/2022 Overview: Facility: [facility] Date of admission 07/14/2021 Date of discharge Prehospital work-up: Presented to 07/14/2021 to [facility] ED complaining of left-sided abdominal pain with multiple symptoms including cough, myalgias, nasal congestion, low dietary intake due to concerns that would aggravate stomach ache. Patient was exposed to Covid 2 weeks prior, unvaccinated. Vital signs: 98.3 [id number]/102-93% RA. Exam description: Tired, alert and nontoxic, [...] he could be done outpatient. 07/15/2021 consultation program director/traffic director Dr. Dwayne Garcia: Assessment right pleural effusion: Continue diuretic therapy, empiric antimicrobials, thoracentesis recommended, eventual right heart cath work and secondary work-up for pH outpatient basis. 07/15/2021 echocardiogram: LV size and LV SF WNL, EF 60 to 65%. RV normal size and RV SF EF. Left atrium moderately enlarged, right atrium mildly enlarged. MV: Moderate mitral annular calcification, 1-2+ WV. TV: Normal. AV: Diffuse aortic valve calcification. [...] of this encounter (statuses as of 09/22/2022) [facility] of Past illness Narrative* Problem Noted Date Resolved Date Renal infarct 04/19/2022 07/26/2022 Overview: Has seen Dr. Chaney. Needs to just follow up prn. Pleural effusion 01/31/2022 04/19/2022 Encounter for support and coordination of transi tion of care 07/20/2021 07/26/2022 Overview: Facility: [facility] Date of admission 07/14/2021 Date of discharge Prehospital work-up: Presented to 07/14/2021 to [facility] ED complaining of left-sided abdominal pain with multiple symptoms including cough, myalgias, nasal congestion, low dietary intake due to concerns that would aggravate stomach ache. Patient was exposed to Covid 2 weeks prior, unvaccinated. Vital signs: 98.3 F-[id number]/102-93% RA. Exam description: Tired, alert and nontoxic, [...] he could be done outpatient. 07/15/2021 consultation program director/traffic director Dr. Dwayne Garcia: Assessment right pleural effusion: Continue diuretic therapy, empiric antimicrobials, thoracentesis recommended, eventual right heart cath work and secondary work-up for pH outpatient basis. 07/15/2021 echocardiogram: LV size and LV SF WNL, EF 60 to 65%. RV normal size and RV SF EF. Left atrium moderately enlarged, right atrium mildly enlarged. MV: Moderate mitral annular calcification, 1-2+ WV. TV: Normal. AV: Diffuse aortic valve calcification. [...] of this encounter (statuses as of 09/22/2022) [facility] Narrative* Problem Noted Date Resolved Date Renal infarct 04/19/2022 07/26/2022 Overview: Has seen Dr. Chaney. Needs to just follow up prn. Pleural effusion 01/31/2022 04/19/2022 Encounter for support and coordination of transi tion of care 07/20/2021 07/26/2022 Overview: Facility: [facility] Date of admission 07/14/2021 Date of discharge Prehospital work-up: Presented to 07/14/2021 to [facility] ED complaining of left-sided abdominal pain with multiple symptoms including cough, myalgias, nasal congestion, low dietary intake due to concerns that would aggravate stomach ache. Patient was exposed to Covid 2 weeks prior, unvaccinated. Vital signs: 98.3 [id number]-[id number]/102-93% RA. Exam description: Tired, alert and nontoxic, [...] he could be done outpatient. 07/15/2021 consultation program director/traffic director Dr. Dwayne Garcia: Assessment right pleural effusion: Continue diuretic therapy, empiric antimicrobials, thoracentesis recommended, eventual right heart cath work and secondary work-up for pH outpatient basis. 07/15/2021 echocardiogram: LV size and LV SF WNL, EF 60 to 65%. RV normal size and RV SF EF. Left atrium moderately enlarged, right atrium mildly enlarged. MV: Moderate mitral annular calcification, 1-2+ WV. TV: Normal. AV: Diffuse aortic valve calcification. [...] of this encounter (statuses as of 09/23/2022) [facility] Narrative* Problem Noted Date Resolved Date Renal infarct 04/19/2022 07/26/2022 Overview: Has seen Dr. Chaney. Needs to just follow up prn. Pleural effusion 01/31/2022 04/19/2022 Encounter for support and coordination of transi tion of care 07/20/2021 07/26/2022 Overview: Facility: [facility] Date of admission 07/14/2021 Date of discharge Prehospital work-up: Presented to 07/14/2021 to [facility] ED complaining of left-sided abdominal pain with multiple symptoms including cough, myalgias, nasal congestion, low dietary intake due to concerns that would aggravate stomach ache. Patient was exposed to Covid 2 weeks prior, unvaccinated. Vital signs: 98.3 A-357-60-143/102-93% RA. Exam description: Tired, alert and nontoxic, [...] he could be done outpatient. 07/15/2021 consultation program director/traffic director Dr. Dwayne Garcia: Assessment right pleural effusion: Continue diuretic therapy, empiric antimicrobials, thoracentesis recommended, eventual right heart cath work and secondary work-up for pH outpatient basis. 07/15/2021 echocardiogram: LV size and LV SF WNL, EF 60 to 65%. RV normal size and RV SF EF. Left atrium moderately enlarged, right atrium mildly enlarged. MV: Moderate mitral annular calcification, 1-2+ WV. TV: Normal. AV: Diffuse aortic valve calcification. [...] of this encounter (statuses as of 09/23/2022) [facility] Narrative* Problem Noted Date Resolved Date Renal infarct 04/19/2022 07/26/2022 Overview: Has seen Dr. Chaney. Needs to just follow up prn. Pleural effusion 01/31/2022 04/19/2022 Encounter for support and coordination of transi tion of care 07/20/2021 07/26/2022 Overview: Facility: [facility] Date of admission 07/14/2021 Date of discharge Prehospital work-up: Presented to 07/14/2021 to [facility] ED complaining of left-sided abdominal pain with multiple symptoms including cough, myalgias, nasal congestion, low dietary intake due to concerns that would aggravate stomach ache. Patient was exposed to Covid 2 weeks prior, unvaccinated. Vital signs: 98.3 A-838-04-143/102-93% RA. Exam description: Tired, alert and nontoxic, [...] he could be done outpatient. 07/15/2021 consultation program director/traffic director Dr. Dwayne Garcia: Assessment right pleural effusion: Continue diuretic therapy, empiric antimicrobials, thoracentesis recommended, eventual right heart cath work and secondary work-up for pH outpatient basis. 07/15/2021 echocardiogram: LV size and LV SF WNL, EF 60 to 65%. RV normal size and RV SF EF. Left atrium moderately enlarged, right atrium mildly enlarged. MV: Moderate mitral annular calcification, 1-2+ WV. TV: Normal. AV: Diffuse aortic valve calcification. [...] of this encounter (statuses as of 09/27/2022) [facility] Narrative* Problem Noted Date Resolved Date Renal infarct 04/19/2022 07/26/2022 Overview: Has seen Dr. Chaney. Needs to just follow up prn. Pleural effusion 01/31/2022 04/19/2022 Encounter for support and coordination of transi tion of care 07/20/2021 07/26/2022 Overview: Facility: [facility] Date of admission 07/14/2021 Date of discharge Prehospital work-up: Presented to 07/14/2021 to [facility] ED complaining of left-sided abdominal pain with multiple symptoms including cough, myalgias, nasal congestion, low dietary intake due to concerns that would aggravate stomach ache. Patient was exposed to Covid 2 weeks prior, unvaccinated. Vital signs: 98.3 [id number]/102-93% RA. Exam description: Tired, alert and nontoxic, [...] he could be done outpatient. 07/15/2021 consultation program director/traffic director Dr. Dwayne Garcia: Assessment right pleural effusion: Continue diuretic therapy, empiric antimicrobials, thoracentesis recommended, eventual right heart cath work and secondary work-up for pH outpatient basis. 07/15/2021 echocardiogram: LV size and LV SF WNL, EF 60 to 65%. RV normal size and RV SF EF. Left atrium moderately enlarged, right atrium mildly enlarged. MV: Moderate mitral annular calcification, 1-2+ WV. TV: Normal. AV: Diffuse aortic valve calcification. [...] of this encounter (statuses as of 09/29/2022) [facility] Narrative* Problem Noted Date Resolved Date Renal infarct 04/19/2022 07/26/2022 Overview: Has seen Dr. Chaney. Needs to just follow up prn. Pleural effusion 01/31/2022 04/19/2022 Encounter for support and coordination of transi tion of care 07/20/2021 07/26/2022 Overview: Facility: [facility] Date of admission 07/14/2021 Date of discharge Prehospital work-up: Presented to 07/14/2021 to [facility] ED complaining of left-sided abdominal pain with multiple symptoms including cough, myalgias, nasal congestion, low dietary intake due to concerns that would aggravate stomach ache. Patient was exposed to Covid 2 weeks prior, unvaccinated. Vital signs: 98.3 [id number]/102-93% RA. Exam description: Tired, alert and nontoxic, [...] he could be done outpatient. 07/15/2021 consultation program director/traffic director Dr. Dwayne Garcia: Assessment right pleural effusion: Continue diuretic therapy, empiric antimicrobials, thoracentesis recommended, eventual right heart cath work and secondary work-up for pH outpatient basis. 07/15/2021 echocardiogram: LV size and LV SF WNL, EF 60 to 65%. RV normal size and RV SF EF. Left atrium moderately enlarged, right atrium mildly enlarged. MV: Moderate mitral annular calcification, 1-2+ WV. TV: Normal. AV: Diffuse aortic valve calcification. [...] infectious process 07/16/2021: Ultrasound-guided thoracentesis Dr. Gary Reyse: 670 mL of blood-tinged cloudy fluid drained [...] of this encounter (statuses as of 10/07/2022) [facility] Narrative* Problem Noted Date Resolved Date Renal infarct 04/19/2022 07/26/2022 Overview: Has seen Dr. Chaney. Needs to just follow up prn. Pleural effusion 01/31/2022 04/19/2022 Encounter for support and coordination of transi tion of care 07/20/2021 07/26/2022 Overview: Facility: [facility] Date of admission 07/14/2021 Date of discharge Prehospital work-up: Presented to 07/14/2021 to [facility] ED complaining of left-sided abdominal pain with multiple symptoms including cough, myalgias, nasal congestion, low dietary intake due to concerns that would aggravate stomach ache. Patient was exposed to Covid 2 weeks prior, unvaccinated. Vital signs: 98.3 J-[id number]/102-93% RA. Exam description: Tired, alert and nontoxic, [...] he could be done outpatient. 07/15/2021 consultation program director/traffic director Dr. Dwayne Garcia: Assessment right pleural effusion: Continue diuretic therapy, empiric antimicrobials, thoracentesis recommended, eventual right heart cath work and secondary work-up for pH outpatient basis. 07/15/2021 echocardiogram: LV size and LV SF WNL, EF 60 to 65%. RV normal size and RV SF EF. Left atrium moderately enlarged, right atrium mildly enlarged. MV: Moderate mitral annular calcification, 1-2+ WV. TV: Normal. AV: Diffuse aortic valve calcification. [...] of this encounter (statuses as of 10/14/2022) [facility] History of Past illness Narrative* Problem Noted [...] transition of care 07/20/2021 07/26/2022 Overview: Facility: [facility] Date of admission 07/14/2021 Date of discharge Prehospital work-up: Presented to 07/14/2021 to [facility] ED complaining of left-sided abdominal pain with multiple symptoms including cough, myalgias, nasal congestion, low dietary intake due to concerns that would aggravate stomach ache. Patient was exposed to Covid 2 weeks prior, unvaccinated. Vital signs: 98.3 [id number]/102-93% RA. Exam description: Tired, alert and nontoxic, [...] he could be done outpatient. 07/15/2021 consultation program director/traffic director Dr. Dwayne Garcia: Assessment right pleural effusion: Continue diuretic therapy, empiric antimicrobials, thoracentesis recommended, eventual right heart cath work and secondary work-up for pH outpatient basis. 07/15/2021 echocardiogram: LV size and LV SF WNL, EF 60 to 65%. RV normal size and RV SF EF. Left atrium moderately enlarged, right atrium mildly enlarged. MV: Moderate mitral annular calcification, 1-2+ WV. TV: Normal. AV: Diffuse aortic valve calcification. [...] mEq ER: 1 tablet twice daily Diltiazem 2039 mg capsule extended release 24-hour: 1 capsule [...] of this encounter (statuses as of 04/09/2023) [facility] History of Past illness Narrative* Problem Noted [...] transition of care 07/20/2021 07/26/2022 Overview: Facility: [facility] Date of admission 07/14/2021 Date of discharge Prehospital work-up: Presented to 07/14/2021 to [facility] ED complaining of left-sided abdominal pain with multiple symptoms including cough, myalgias, nasal congestion, low dietary intake due to concerns that would aggravate stomach ache. Patient was exposed to Covid 2 weeks prior, unvaccinated. Vital signs: 98.3 [id number]/102-93% RA. Exam description: Tired, alert and nontoxic, [...] he could be done outpatient. 07/15/2021 consultation program director/traffic director Dr. Dwayne Garcia: Assessment right pleural effusion: Continue diuretic therapy, empiric antimicrobials, thoracentesis recommended, eventual right heart cath work and secondary work-up for pH outpatient basis. 07/15/2021 echocardiogram: LV size and LV SF WNL, EF 60 to 65%. RV normal size and RV SF EF. Left atrium moderately enlarged, right atrium mildly enlarged. MV: Moderate mitral annular calcification, 1-2+ WV. TV: Normal. AV: Diffuse aortic valve calcification. 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 Dysphagia, unspecified(787.20) 05/08/2018 documented as of this encounter (statuses as of 04/09/2023) [facility] History of Past illness Narrative* Problem Noted [...] transition of care 07/20/2021 07/26/2022 Overview: Facility: [facility] Date of admission 07/14/2021 Date of discharge Prehospital work-up: Presented to 07/14/2021 to [facility] ED complaining of left-sided abdominal pain with multiple symptoms including cough, myalgias, nasal congestion, low dietary intake due to concerns that would aggravate stomach ache. Patient was exposed to Covid 2 weeks prior, unvaccinated. Vital signs: 98.3 [id number]/102-93% RA. Exam description: Tired, alert and nontoxic, [...] he could be done outpatient. 07/15/2021 consultation program director/traffic director Dr. Dwayne aGrcia: Assessment right pleural effusion: Continue diuretic therapy, empiric antimicrobials, thoracentesis recommended, eventual right heart cath work and secondary work-up for pH outpatient basis. 07/15/2021 echocardiogram: LV size and LV SF WNL, EF 60 to 65%. RV normal size and RV SF EF. Left atrium moderately enlarged, right atrium mildly enlarged. MV: Moderate mitral annular calcification, 1-2+ WV. TV: Normal. AV: Diffuse aortic valve calcification. [...] of this encounter (statuses as of 04/09/2023) [facility] History of Present illness Narrative* Wes Bonilla [...] rash. PAST MEDICAL HISTORY Diagnosis Date A-fib ([facility]) Class 1 congestive heart failure, unspecified failure chronicity, systolic ([facility]) 11/21/2019 Dysphagia, unspecified(787.20) Esophageal reflux Esophagitis, unspecified Marfan's syndrome Moderate mitral regurgitation 06/18/2021 04/27/21 Echo at [facility]. Pleural effusion, right 05/05/2020 CXR 11/18/19 and [...] three months or prn documented in this encounterBelle[facility]11-[facility] History of Present illness Narrative* Elisabeth Canchola RN - 04/19/2022 9:38 AM EST PRIMARY CARE COORDINATION QUICK NOTE Provider Action/FYI Patient scheduled to see pcp today. Defer outreach one week. Patient identified by name and date . documented in this encounterBelle[facility] Hospital11-01-[facility]22 History of Present illness Narrative* Elisabeth Canchola RN - 04/05/2022 12:06 PM EDT INSIGHT [facility] TELEPHONIC OUTREACH Provider Action/FYI: Patient returned call to this nurse, reported she is doing good, has chest xray completed today forDr Mariee. Patient states she has not yet [...] like to speak with a social work [employer] team member to help give you support for any [...] you up for automated weekly questionnaires through [employer]. This is an easy way for us [...] Outreach - End Outreach documented in this encounterBelle[facility] Hospital10-25-[facility] History of Present illness Narrative* Jason Gallegos, - 03/29/2022 3:06 PM EDT Agree with below Jason Gallegos DO * Yanely Posadas RN - 03/29/2022 2:41 PM EDT patient had inr completed at [facility] patients inr is 2.1 (patients inr range [...] reading since dose change documented in this encounterBelle[facility] Hospital10-20-[facility]22 History of Present illness Narrative* Elisabeth Canchola [...] like to speak with a social work [employer] lending team member to help give you support for any [...] you up for automated weekly questionnaires through [employer]. This is an easy way for us [...] PtOutreach and End outreach. documented in this encounterBelle[facility] Hospital10-18-2022 History of Present illness Narrative* Elisabeth Canchola RN - 03/22/2022 11:35 AM EDT [facility]IGHT [facility] TELEPHONIC OUTREACH Provider Action/FYI: Contact made with patient: No - Left message Hello my name is Elisabeth Canchola RN your Wood Repatcher from the [facility] I am calling today for your bi-weekly check in. I am sorry I missed your call. I will reach out to you again tomorrow. (if the third call I will reach out to you again next week) Enter next patient outreach date for the following business day using the Track Pt Outreach. End outreach. documented in this [facility]10-11-2022 Miscellaneous Notes* Telephone Encounter - Yanely Posadas RN - 03/15/2022 4:01 PM EDT patients orders for coumadin clinic inr's has at this time. new order has been pended for approval if possible so that patient can continue to get inr's completed thru the coumadin clinic. coumadin clinic nurse only needs called if order can not be approved. documented in this [facility]10-11-2022 Instructions* Patient Instructions* Usman Mehta PA-C - 03/15/2022 2:52 PM EDT Take extra 2mg coumadin today, recheck INR in 1 week. documented in this [facility]10-11-2022 History of Present illness Narrative* FELIPE Mantilla-C - 03/15/2022 2:20 PM EDT 76 year [...] Emphysema PAST MEDICAL HISTORY Diagnosis Date A-fib ([facility]) Class 1 congestive heart failure, unspecified failure chronicity, systolic ([facility]) 11/21/2019 Dysphagia, unspecified(787.20) Esophageal reflux Esophagitis, unspecified Marfan's syndrome Moderate mitral regurgitation 06/18/2021 04/27/21 Echo at [facility]. Pleural effusion, right 05/05/2020 CXR 11/18/19 and [...] bactermia - ICD9: 790.7, ICD10: R78.81 resolved Usman Mehta PA-C documented in this encounterBelle[facility] Hospital10-04-2022 Miscellaneous Notes* Telephone Encounter - Tia Harding RN - 03/08/2022 11:12 AM EDT Eddie Bonilla Pt was discharged from home health on 03/04/22 with goals met. [facility] office. Thank you for following this home health pt. documented in this encounterBelle[facility] Hospital10-04-2022 Miscellaneous Notes* Telephone Encounter - Elisabeth Canchola [...] name and date . documented in this encounterBellevue Hospital10-04-2022 History of Present illness Narrative* Elisabeth Canchola [...] like to speak with a social work [employer] team member to help give you support for any [...] you up for automated weekly questionnaires through Raw[employer]. This is an easy way for us [...] PtOutreach and End outreach. documented in this encounterBellevue Hospital09-30-2022 Miscellaneous Notes* [facility] Agency DIETER Harding RN - 03/04/2022 6:57 PM EDT SITUATION: Long-Term agency discharge visit completed today. dc vs [...] for additional medical questions/concerns. documented in this encounterBellevue Hospital09-29-2022 Miscellaneous Notes* Telephone Encounter - Seema Garcia [...] Information or narrative: no documented in this encounterBellevue Hospital09-28-2022 Miscellaneous Notes* SN Routine - Tia Harding RN - 03/02/2022 1:51 PM EDT SITUATION: Long-Term routine visit completed today. only patient present [...] she normally goes to the coumad[facility] clinic [facility]. NOMNC reviewed and signed by pt today. See intervention summary for education details. Patient demonstrated a need for further skilled SN services for agency dc by phone. Current Discharge plan: self-care and family support RECOMMENDATION: Next visit to focus on (be specific): NA, will plan a telephone dc on 03/04/22. documented in this encounterBellevue Hospital09-23-2022 Miscellaneous Notes* CARE COORDINATION - Manju Larson, PT - 02/25/2022 8:30 AM EDT PT visits denied by insurace Contacted pt and MD to notify message sent to SN documented in this encounterBellevue Hospital09-22-2022 Miscellaneous Notes* SN Routine - Tia Harding RN - 02/24/2022 12:16 PM EDT SITUATION: Long-Term routine visit completed today. only patient present [...] CHF assessment and instruction. documented in this encounterBelle[facility] Hospital2022 Miscellaneous Notes* Telephone Encounter - Cadence Bustillo [...] - 02/23/2022 1:27 PM EDT Yanely Hassan [facility] called in and [...] a message. Please advise. documented in this encounterBelle[facility] Hospital09-20-2022 Miscellaneous Notes* Telephone Encounter - Gemma Machado PTA - 02/22/2022 1:34 PM EDT We are waiting on insurance authorization to come through for home care PT. Patient requested to hold on PT visits until authorization is received. documented in this encounterBelle[facility] Hospital09-20-2022 History of Present illness Narrative* Elisabeth Canchola [...] like to speak with a social work [employer] lending team member to help give you support for any [...] you up for automated weekly questionnaires through RawData. This is an easy way for us [...] PtOutreach and End outreach. documented in this encounterBelle[facility] Hospital09-19-2022 Miscellaneous Notes* CARE COORDINATION - Gemma Machado PTA - 02/21/2022 1:22 PM EDT PT contacted patient on 02/21/22 for the following: to explain that insurance authorization for PT ispending. Patient voiced understanding and requested to hold on any further PT visits until authorization is received. New orders: None Follow up needed: None documented in this encounterBellevue Hospital09-16-2022 Miscellaneous Notes* PT ROUTINE/REASSESSMENT/RECERT/CASE MGMT - Manju Larson, PT - 02/18/2022 1:11 PM EDT SITUATION: family home during visit but remained in other rooms during visit . patient reports the following since the last homecare visit: medications/allergies--no changes, no fall. patient rreports that she is feeling a little stronger BACKGROUND: Diagnoses (reason for Home Care): Hosp 01/25- at [facility] then transferred to [facility] 01/31-or Pleural effusion, right and Paroxysmal atrial [...] summary for intervention/education details. documented in this encounterBellevue Hospital09-15-2022 Miscellaneous Notes* Telephone Encounter - Cadence Bustillo [...] Information or narrative: no documented in this encounterBellevue Hospital09-13-2022 Miscellaneous Notes* Telephone Encounter - Wes Bonilla [...] your review of this information. Erik Hassan RN-[facility]. documented in this encounterBelle[facility] Hospital09-13-2022 Miscellaneous Notes* SN Routine - Tia Harding RN - 02/15/2022 1:06 PM EDT SITUATION: Long-Term routine visit completed today. only patient present [...] on (be specific): PT/INR documented in this encounterBellevue Hospital09-13-2022 Miscellaneous Notes* PT ROUTINE/REASSESSMENT/RECERT/CASE MGMT - Gemma [...] (reason for Home Care): Hosp 01/25- at [facility] then transferred to [facility] 01/31-02/06 for Pleuraleffusion, right and Paroxysmal atrial [...] summary for intervention/education details. documented in this encounterBelle[facility] Hospital09-12-2022 Miscellaneous Notes* Telephone Encounter - Debbie Long [...] also like her to follow with her gynecology teacher. She has seen both our pulmonary department as well as across the street. We need her to follow up with whichever one she wants to follow with. (Has appt to see cardiology already_ Can we fax labs and xray to [facility]-I think she is seeing them today documented in this encounterBellevue Hospital09-09-2022 Miscellaneous Notes* PT EVALUATION - Manju Larson, PT - 02/11/2022 10:41 AM EDT SITUATION: PT evaluation, only patient present during today's visit. patient reports the following since the last homecare visit: medications/allergies--no changes, no fall. BACKGROUND: Hosp 01/25- at [facility] then transferred to [facility] 01/31-02/06 for Pleural effusion, right and Paroxysmal atrial fibrillation past medical history :Marfan's Syndrome Esophageal Reflux Hyperlipidemia History of Polymyalgia Rheumatica Centrilobular Emphysema Paroxysmal Atrial Fibrillation Hypertension, Essential Chronic Anticoagulation Lung Nodule Pleural Effusion, Right Prediabetes Pulmonary Hypertension Moderate Mitral Reg urgitation Pleural Effusion precautions fall risk Weight Bearing or Surgical Precautions: none ASSESSMENT: Patient evaluated by [facility] therapy. Reviewed and explained homecare [...] summary for intervention/education details. documented in this encounterBellevue Hospital09-08-2022 Miscellaneous Notes* Telephone Encounter - Wes Bonilla [...] Thank you, Maureen RN documented in this encounterBellevue Hospital09-07-2022 Miscellaneous Notes* Telephone Encounter - Airam Ayon [...] Information or narrative: no documented in this encounterBellevue Hospital09-07-2022 Miscellaneous Notes* Telephone Encounter - Cadence Bustillo [...] advise, Deana Coleman RN documented in this encounterBellevue Hospital09-07-2022 Miscellaneous Notes* SN SOC - Maureen Bowser RN - 02/09/2022 12:02 PM EDT SITUATION: Long-Term SOC visit completed today. spouse, and family also present during today's visit. patient reports the following: Allergies--reviewed Medications--full medication reconciliation completed Falls--None DME-Reviewed and added to chart BACKGROUND: Discharged/Referral from acute care hospital on 02/06/22 following treatment for pleural [...] incision check, medication education documented in this encounterBellevue Hospital09-07-2022 History of Present illness Narrative* Elisabeth Canchola RN - 02/09/2022 11:00 AM EDT INSIGHT [facility] TELEPHONIC OUTREACH Provider Action/FYI: Patient states she is feeling better now that she is home, inpatient at [facility] 01/31/22 to 02/06/22, [facility] nurse will be at her house for SOC today. Patient states she will have INR drawn today after [facility] nurse is done, has follow up [...] like to speak with a social work [employer] sales and lending team member to help give you support for any [...] you up for automated weekly questionnaires through RawData. This is an easy way for us [...] PtOutreach and End outreach. documented in this encounterBellevue Hospital09-06-2022 Miscellaneous Notes* Telephone Encounter - Kaley Armendariz - 02/08/2022 3:27 PM EDT Called PT no VM setup will attempt again. Thanks * Telephone Encounter - Wes Bonilla MD - 02/08/2022 2:18 PM EDT Needs INR charanjit. * Telephone Encounter - Deana Coleman RN - 02/08/2022 1:51 PM EDT Patient calls and states that she was discharged from [facility] on 02/06/2022. Patient states that her [...] advise, Deana Coleman RN documented in this encounterBellevue Hospital09-06-2022 History of Present illness Narrative* Vicki Christianson [...] appointment? No Reason for Outreach Community Monitoring Lester Payer: Payor: HU[employer] MEDICARE / Plan: HU[employer]NA [...] TCM Home Visit Referral Source of Stratification: [facility] Hospital Admission Status: Discharged Readmission Risk [...] care team. Thank you, Colleen Cardenas RN, [facility] Transitions of Care Critical Issues: LAB [...] with her walker. Provided with number for [facility] to return their call for SOC Reviewed CT site wound care. Dsg d/I Denies further concerns or questions. SUMMARY: Pt discharged from [facility] on 02/06. Admitted for: Pleural effusion /parapneumonia effusion Contact made with patient: Yes Hi my name is Colleen Cardenas RN and I am calling from the [facility] on behalf of your PCP,Wes Bonilla MD [...] Med adjustments only, per patient preference. See [facility] pharmacy outreach. SOCIAL: We would like to make sure you have what you need so that your basics needs are met - including your personal safety, food, housing and medications. Would you like to speak with a social work [employer] sales and lending team member to help give you support for any [...] I will send your request to a precision dancer who will contact and assist you with that appointment. This will give you an opportunity to ask any questions or address any concerns youmay have with your PCP. Inform the patient that if they have any questions or concerns prior to that appointment, to call their PCP's office right away. ACTION TAKEN: Patient desires an appointment - Routed to [facility] [[phone]] for schedulingtelehealth visit (telephonic, virtual visit, or [...] the way if possible). documented in this encounterBellevue Hospital08-29-2022 History of Past illness Narrative* Problem Noted [...] of this encounter (statuses as of 04/19/2022) [address]29-2022 History of Past illness Narrative* Problem [...] of this encounter (statuses as of 04/19/2022) [facility] Narrative* Problem Noted [...] of this encounter (statuses as of 04/19/2022) [facility] Narrative* Problem Noted [...] of this encounter (statuses as of 04/20/2022) [address]29-2022 History of Past illness Narrative* Problem [...] of this encounter (statuses as of 04/26/2022) [facility] Narrative* Problem Noted [...] of this encounter (statuses as of 05/17/2022) [place] [address] History of Past illness Narrative* Problem Noted [...] of this encounter (statuses as of 05/18/2022) [place] [address] History of Past illness Narrative* Problem Noted [...] of this encounter (statuses as of 05/19/2022) [facility] Narrative* Problem Noted [...] of this encounter (statuses as of 05/21/2022) [facility] Narrative* Problem Noted [...] of this encounter (statuses as of 05/27/2022) [place] [address] History of Past illness Narrative* Problem Noted [...] of this encounter (statuses as of 06/08/2022) [address]29-2022 History of Past illness Narrative* Problem [...] of this encounter (statuses as of 06/21/2022) [place] [address] History of Past illness Narrative* Problem Noted [...] of this encounter (statuses as of 06/29/2022) [place] [address] History of Past illness Narrative* Problem Noted [...] of this encounter (statuses as of 06/30/2022) [place] [address] History of Past illness Narrative* Problem Noted [...] of this encounter (statuses as of 07/04/2022) [address]29-2022 History of Past illness Narrative* Problem [...] of this encounter (statuses as of 07/04/2022) [place] [address] History of Past illness Narrative* Problem Noted [...] of this encounter (statuses as of 07/07/2022) [facility] Narrative* Problem Noted [...] of this encounter (statuses as of 07/07/2022) [address] History of Past illness Narrative* Problem Noted [...] of this encounter (statuses as of 07/11/2022) [address] History of Past illness Narrative* Problem Noted [...] of this encounter (statuses as of 07/21/2022) [facility] of Present illness Narrative* Gregorio Delcid MD - 01/14/2022 4:10 PM EDT I agree with the advice given; stay same and recheck in 1 month Gregorio Delcid MD * Yanely Posadas RN - 01/14/2022 1:24 PM EDT patient had inr completed at [facility] patients inr is 2.0 (patients inr range [...] for follow up INR. documented in this encounterBellevue Hospital08-12-2022 Instructions* Patient Instructions* Dalila Jensen APRN.CNP - 01/14/2022 2:05 PM EDT Continue the same medication. 2. Recheck in 3 months. 3. Get fasting labwork prior to next appt. documented in this encounterBellevue Hospital08-12-2022 History of Present illness Narrative* Dalila Jensen [...] HISTORY: PAST MEDICAL HISTORY Diagnosis Date A-fib ([facility]) Class 1 congestive heart failure, unspecified failure chronicity, systolic ([facility]) 11/21/2019 Dysphagia, unspecified(787.20) Esophageal reflux Esophagitis, unspecified Marfan's syndrome Moderate mitral regurgitation 06/18/2021 04/27/21 Echo at [facility]. Pleural effusion, right 05/05/2020 CXR 11/18/19 and [...] ABDOMINAL HYSTERECT W/WO RMVL TUBE OVARY Hysterectomy, MICHOACAON ALLERGIES Crestor [Rosuvastatin Calcium], Ibuprofen, Prevnar 13 [...] APRN.TRICIA This note was partially generated using [email or web address] voice recognition system. Note was reviewed for accuracy. There may be minor misspellings or grammar miscues with [employer] voice recognition. documented in this encounterBellevue Hospital08-03-2022 History of Present illness Narrative* Elisabeth Canchola [...] like to speak with a social work [employer] sales and lending team member to help give you support for any [...] you up for automated weekly questionnaires through RawData. This is an easy way for us [...] PtOutreach and End outreach. documented in this encounterBellevue Hospital07-18-2022 History of Present illness Narrative* Elisabeth Canchola [...] like to speak with a social work [employer] sales and lending team member to help give you support for any [...] you up for automated weekly questionnaires through RawData. This is an easy way for us [...] PtOutreach and End outreach. documented in this encounterBellevue Hospital07-18-2022 Miscellaneous Notes* Telephone Encounter - Airam Ayon [...] you. Airam Ayon, RN documented in [facility] encounterB[facility] History of Present illness Narrative* Wes Bonilla MD - 12/16/2021 2:36 PM EDT agree * Yanely Posadas RN - 12/16/2021 2:06 PM EDT patient had inr completed at [facility] patients inr is 2.7 (patients inr range [...] for follow up INR. documented in this encounterBellevue Hospital06-16-[facility]22 History of Present illness Narrative* Wes Bonilla MD - 11/18/2021 1:43 PM EDT agree * Yanely Posadas RN - 11/18/2021 1:24 PM EDT patient had inr completed at [facility] patients inr is 2.6 (patients inr range [...] for follow up INR. documented in this encounterBellevue Hospital06-07-2022 History of Present illness Narrative* Elisabeth Canchola RN - 11/09/2021 12:17 PM EDT INSIGHT [facility] TELEPHONIC OUTREACH Provider Action/FYI: Pt reports she is doing good, was seen by cardiology yesterday, Anisha Murphy, heart rate wasin the 40's, Metoprolol was [...] like to speak with a social work [employer] sales and lending team member to help give you support for any [...] you up for automated weekly questionnaires through RawData. This is an easy way for us [...] PtOutreach and End outreach. documented in this encounterBellevue Hospital06-06-2022 History of Present illness Narrative* Elisabeth Canchola RN - 11/08/2021 3:04 PM EDT INSIGHT CDM TELEPHONIC OUTREACH Provider Action/FYI: Contact made with patient: No - Left message Helmei my name is Elisabeth Canchola RN your Wood Repatcher [facility] I am calling today for your bi-weekly check in. I am sorry I missed your call. I will reach out to you again tomorrow. (if the third call I will reach out to you again next week) Enter next patient outreach date for the following business day using the Track Pt Outreach. End outreach. documented in this encounterBellevue Hospital05-31-2022 History of Present illness Narrative* Wes Bonilla MD - 11/02/2021 2:14 PM EDT agree * Yanely Posadas RN - 11/02/2021 1:53 PM EDT patient had inr completed at [facility] patients inr is 3.0 (patients inr range [...] high end of normal documented in this encounterBellevue Hospital05-23-2022 History of Present illness Narrative* Elisabeth Canchola RN - 10/25/2021 1:22 PM EDT PRIMARY CARE COORDINATION QUICK NOTE Provider Action/FYI Spoke to pt, relayed message from pcp. Pt had no further questions, concerns, needs at this time. Patient identified by name and date . Elisabeth Canchola RN Floor Tech * Wes Bonilla MD - 10/25/2021 1:10 PM EDT Bmp was stable. * Elisabeth Canchola, PEYTON - 10/25/2021 12:50 PM EDT INSIGHT [facility] TELEPHONIC OUTREACH Provider Action/FYI: Pt reports she [...] like to speak with a social work [employer] sales and lending team member to help give you support for any [...] you up for automated weekly questionnaires through MyChart. This is an easy way for us [...] PtOutreach and End outreach. documented in this encounterBellevue Hospital05-16-2022 History of Present illness Narrative* Wes Bonilla MD - 10/18/2021 1:16 PM EDT agree * Yanely Posadas RN - 10/18/2021 1:13 PM EDT patient had inr completed at [facility] patients inr is 2.2 (patients inr range [...] reading since dose change documented in this encounterBellevue Hospital05-09-2022 History of Present illness Narrative* Debbie Long [...] PM EDT patient had inr completed at [facility] patients inr is 3.5 (patients inr range [...] up inr on 10/18/21 documented in this encounterBellevue Hospital05-09-2022 Miscellaneous Notes* Telephone Encounter - Elisabeth Canchola RN - 10/11/2021 12:04 PM EDT Last OV 10/04/21 Next OV 01/04/22 Patient phones requesting refills as follows: Pending Prescriptions Disp Refills METOPROLOL TARTRATE 100 MG TABLET 180 tablet 3 Sig: Take 1 tablet by mouth twice daily. ERIN: No Please review and advise. Elisabeth Canchola RN documented in this encounterBellevue Hospital05-09-2022 History of Present illness Narrative* Elisabeth Canchola RN - 10/11/2021 11:46 AM EDT [facility] [employer] TELEPHONIC OUTREACH Provider Action/FYI: Pt reports she [...] like to speak with a social work [employer] lending team member to help give you support for any [...] you up for automated weekly questionnaires through RawData. This is an easy way for us [...] PtOutreach and End outreach. documented in this encounterBellevue Hospital05-04-2022 Miscellaneous Notes* Telephone Encounter - Jennifer Kimball [...] a1c in two weeks. documented in this encounterBellevue Hospital05-03-2022 Miscellaneous Notes* Telephone Encounter - Mimi Feldman [...] Mariee/Jose and Anisha cardiology. documented in this encounterBellevue Hospital05-02-2022 Instructions* Patient Instructions* Wes Bonilla MD - 10/04/2021 2:52 PM EDT Hold coumadin today, then start 2 mg a day, except 4 mg on Monday, Mon, Monday. Recheck inr in one week documented in this encounterBellevue Hospital05-02-2022 History of Present illness Narrative* Wes Bonilla MD - 10/04/2021 2:51 PM EDT Hold x 1 day, then 4 mg MWF, 2 mg a day rest of the week. Recheck one week. Patient notified. * Yanely Posadas RN - 10/04/2021 12:04 PM EDT patient had inr completed at [facility] patients inr is 4.2 (patients inr range [...] up inr on 10/11/21 documented in this encounterBellevue Hospital05-02-2022 History of Present illness Narrative* Wes Bonilla [...] See previous ov, copied and pasted from [facility] on 08/25/21: Labs from last ov showed [...] rash. PAST MEDICAL HISTORY Diagnosis Date A-fib ([facility]) Class 1 congestive heart failure, unspecified failure chronicity, systolic ([facility]) 11/21/2019 Dysphagia, unspecified(787.20) Esophageal reflux Esophagitis, unspecified Marfan's syndrome Moderate mitral regurgitation 06/18/2021 04/27/21 Echo at [facility]. Pleural effusion, right 05/05/2020 CXR 11/18/19 and [...] three months and prn. documented in this encounterBellevue Hospital04-25-2022 History of Present illness Narrative* Elisabeth Canchola, PEYTON - 09/27/2021 12:01 PM EDT INSIGHT [facility] TELEPHONIC OUTREACH Provider Action/FYI: Pt reports she [...] like to speak with a social work [employer] lending team member to help give you support for any [...] you up for automated weekly questionnaires through RawData. This is an easy way for us [...] PtOutreach and End outreach. documented in this encounterBellevue Hospital04-18-2022 Miscellaneous Notes* Telephone Encounter - Isaiah Skinner LPN - 09/20/2021 2:06 PM EDT Pt notified. She verbalized understanding. Isaiah Skinner LPN * Telephone Encounter - Dalila Jensen APRN.TRICIA - 09/20/2021 1:52 PM EDT INR order placed. Dalila Jensen APRN.TRICIA * Telephone Encounter - Usman Dunn RN - 09/20/2021 1:47 PM EDT Patient was instructed to have INR checked today but needs INR order placed in lab. Please phone patient to let her know when order is in the lab and she will come in to have blood draw. Reports she no longer has a [facility] nurse. documented in this encounterBellevue Hospital04-14-2022 Miscellaneous Notes* Telephone Encounter - Debbie Long Ma - 09/16/2021 10:35 AM EDT Spoke with nurse at [facility] [employer] and relayed coumadin instructions and follow up. She will advise pt. Debbie Long Ma * Telephone Encounter - Wes Bonilla MD - 09/16/2021 10:29 AM EDT 5 mg today, then starting tomorrow 4 mg THSS, 2 mg a day rest of the week. Recheck Monday * Telephone Encounter - Yolis Tran RN - 09/16/2021 10:19 AM EDT [facility] called and reports that Pt had [...] call the patient back. documented in this encounterBellevue Hospital04-14-2022 Miscellaneous Notes* Telephone Encounter - Wes Bonilla [...] concern was not there. documented in this encounterBellevue Hospital04-07-2022 History of Present illness Narrative* Wes Bonilla [...] PM EDT patient had inr completed at [facility] patients inr is 4.6 (patients inr range [...] is closed next week documented in this encounterBellevue Hospital03-29-2022 History of Present illness Narrative* Elisabeth Canchola [...] like to speak with a social work [employer] lending team member to help give you support for any [...] you up for automated weekly questionnaires through RawData. This is an easy way for us [...] PtOutreach and End outreach. documented in this encounterBellevue Hospital03-23-2022 Miscellaneous Notes* Telephone Encounter - Cadence Bustillo LPN - 08/25/2021 5:35 PM EDT Patient was notified. * Telephone Encounter - Wes Bonilla MD - 08/25/2021 5:25 PM EDT Same. Recheck two weeks. * Telephone Encounter - Cadence Bustillo LPN - 08/25/2021 5:01 PM EDT INR 2.9 Current dose 4mg TTSS and 2 mg all other days documented in this encounterBellevue Hospital03-23-2022 Miscellaneous Notes* Telephone Encounter - Cadence Bustillo [...] and tomorrow . She is seeing Dr. Garcia pulmonary at [facility] now. Can we fax to them and see if they can get herback in soon. Call immediately if any worsening shortness of breath, cough or fever. documented in this encounterBellevue Hospital03-03-2022 Miscellaneous Notes* Telephone Encounter - Nay Cottrell RN - 08/05/2021 9:53 AM EST Spoke to Evelyn with [facility]. Reviewed all lab orders provider is requesting as well as INR stat order. Evelyn verbalizes understanding. Nay Cottrell RN * Telephone Encounter - Usman Dunn RN - 08/05/2021 9:42 AM EST Deisy- [facility]- phoned to confirm lab orders. Received all the orders except the INR. Reports nurseis at patient's home now. Will call nurse and have her get the INR also. documented in this encounterBellevue Hospital03-01-2022 Miscellaneous Notes* Telephone Encounter - KASSIE Alvarez - 08/03/2021 3:00 PM EST Sw spoke with patient and provided her with [employer] phone number to check on help with lovenox cost. Patient notes that she is checking with her daughter right now and seeing if she can loanher money to clam picker a few days worth of Lovenox. She will also check with [employer] as wellfor help with cost of lovenox for a few days if she needs to continue with medication. Aníbal noted that if patient needs to be [...] a few more? * Telephone Encounter - Usman Dunn RN - 08/03/2021 1:09 PM EST [...] 08/02/2021 4:52 PM EST Orders faxed to [facility]. Spoke with pt. Advised of dosage instructions. Pt states that she has 2 injections left and cannot afford the co-pay for another refill. Pt has appointment on Weds. * Telephone Encounter - Wes Bonilla MD [...] [facility] [place] at [phone] by 4 PM or Fax new orders to [phone] after 4PM. documented in this encounterBellevue Hospital10-19-2020 History of Past illness Narrative* Problem Noted [...] of this encounter (statuses as of 08/25/2021) [facility] Narrative* Problem Noted [...] of this encounter (statuses as of 08/25/2021) [facility] Narrative* Problem Noted [...] of this encounter (statuses as of 08/31/2021) [facility] Narrative* Problem Noted [...] of this encounter (statuses as of 09/09/2021) [facility] Narrative* Problem Noted [...] of this encounter (statuses as of 09/16/2021) [facility] Narrative* Problem Noted [...] of this encounter (statuses as of 09/20/2021) [facility] Narrative* Problem Noted [...] of this encounter (statuses as of 09/27/2021) [facility]ative* Problem Noted [...] of this encounter (statuses as of 10/04/2021) [facility]ative* Problem Noted [...] of this encounter (statuses as of 10/04/2021) [facility]ative* Problem Noted [...] of this encounter (statuses as of 10/05/2021) [facility]* Problem Noted [...] of this encounter (statuses as of 10/06/2021) [facility]* Problem Noted [...] of this encounter (statuses as of 10/11/2021) [facility]* Problem Noted [...] of this encounter (statuses as of 10/11/2021) [facility]* Problem Noted [...] of this encounter (statuses as of 10/18/2021) [facility]* Problem Noted [...] of this encounter (statuses as of 10/25/2021) [facility]* Problem Noted [...] of this encounter (statuses as of 11/02/2021) [facility]* Problem Noted [...] of this encounter (statuses as of 11/04/2021) [facility]* Problem Noted [...] of this encounter (statuses as of 11/08/2021) [facility]* Problem Noted [...] of this encounter (statuses as of 11/09/2021) [facility]* Problem Noted [...] of this encounter (statuses as of 11/18/2021) [facility]* Problem Noted [...] of this encounter (statuses as of 12/16/2021) [facility]* Problem Noted [...] of this encounter (statuses as of 12/20/2021) [facility]* Problem Noted [...] of this encounter (statuses as of 12/20/2021) [facility]* Problem Noted [...] of this encounter (statuses as of 01/05/2022) [facility]* Problem Noted [...] of this encounter (statuses as of 01/14/2022) [facility]* Problem Noted [...] of this encounter (statuses as of 01/14/2022) [facility]* Problem Noted [...] of this encounter (statuses as of 02/03/2022) [facility] Problem Noted [...] of this encounter (statuses as of 02/08/2022) [facility] Problem Noted [...] of this encounter (statuses as of 02/09/2022) [facility] Problem Noted [...] of this encounter (statuses as of 02/09/2022) [facility] Problem Noted [...] of this encounter (statuses as of 02/10/2022) [facility] Problem Noted [...] of this encounter (statuses as of 02/10/2022) [facility] Problem Noted [...] of this encounter (statuses as of 02/12/2022) [facility] Problem Noted [...] of this encounter (statuses as of 02/14/2022) [facility] Problem Noted [...] of this encounter (statuses as of 02/15/2022) [facility] Problem Noted [...] of this encounter (statuses as of 02/15/2022) [facility] Problem Noted [...] of this encounter (statuses as of 02/16/2022) [facility] Problem Noted [...] of this encounter (statuses as of 02/17/2022) [facility] Problem Noted [...] of this encounter (statuses as of 02/18/2022) [facility] Problem Noted [...] of this encounter (statuses as of 02/21/2022) [facility] Problem Noted [...] of this encounter (statuses as of 02/22/2022) [facility] Problem Noted [...] of this encounter (statuses as of 02/22/2022) [facility] Problem Noted [...] of this encounter (statuses as of 02/25/2022) [facility] Problem Noted [...] of this encounter (statuses as of 02/25/2022) [facility] Problem Noted [...] of this encounter (statuses as of 03/03/2022) [facility] Problem Noted [...] of this encounter (statuses as of 03/03/2022) [facility] Problem Noted [...] of this encounter (statuses as of 03/08/2022) [facility] Problem Noted [...] of this encounter (statuses as of 03/08/2022) [facility] Problem Noted [...] of this encounter (statuses as of 03/08/2022) [facility] Problem Noted [...] of this encounter (statuses as of 03/15/2022) [facility] Problem Noted [...] of this encounter (statuses as of 03/16/2022) [facility] Problem Noted [...] of this encounter (statuses as of 03/22/2022) [facility] Problem Noted [...] of this encounter (statuses as of 03/24/2022) [facility] Problem Noted [...] of this encounter (statuses as of 03/29/2022) [facility]* Problem Noted [...] of this encounter (statuses as of 04/05/2022) [facility] note* Diagnosis Pleural effusion- Primary Unspecified pleural effusion [facility] Diagnosis Paroxysmal atrial fibrillation (HCC) Atrial fibrillation documented in this encounter [facility] note* Diagnosis Paroxysmal atrial fibrillation (HCC) Atrial fibrillation documented in this encounter [facility] note* Diagnosis Paroxysmal atrial fibrillation (HCC)- Primary Atrial fibrillation documented in this encounter [facility] note* Diagnosis Paroxysmal atrial fibrillation (HCC) Atrial fibrillation documented in this encounter [facility] note* Diagnosis Thyroid nodule- Primary Nontoxic uninodular goiter History of colonic polyps Personal history of colonic polyps Paroxysmal atrial fibrillation (HCC) Atrial fibrillation Hypertension, essential Unspecified essential hypertension Pulmonary hypertension (HCC) Other chronic pulmonary heart diseases Hyperlipidemia, unspecified hyperlipidemia type Pleural effusion, right Unspecified pleural effusion Prediabetes Other abnormal glucose Medication monitoring encounter Encounter for therapeutic drug monitoring documented in this encounter [facility] note* Diagnosis Renal insufficiency- Primary Unspecified disorder of kidney and ureter Prediabetes Other abnormal glucose documented in this encounter [facility] note* Diagnosis Paroxysmal atrial fibrillation (HCC) Atrial fibrillation documented in this encounter [facility] note* Diagnosis Paroxysmal atrial fibrillation (HCC) Atrial fibrillation documented in this encounter [facility] note* Diagnosis Paroxysmal atrial fibrillation (HCC) Atrial fibrillation [facility]* Diagnosis Hypertension, essential- Primary Unspecified essential [...] diastolic heart failure documented in this encounter [facility] note* Diagnosis Paroxysmal atrial fibrillation (HCC) Atrial fibrillation [facility]* Diagnosis Pleural effusion- Primary Unspecified pleural effusion documented in this encounter [facility] note* Diagnosis Paroxysmal atrial fibrillation (HCC) Atrial fibrillation [facility]* Diagnosis Paroxysmal atrial fibrillation (HCC)- Primary Atrial fibrillation [facility]* Diagnosis Atrial fibrillation, chronic (HCC)- Primary Atrial fibrillation [facility]* Diagnosis Paroxysmal atrial fibrillation (HCC)- Primary Atrial fibrillation Pleural effusion, right Unspecified pleural effusion Renal insufficiency Unspecified disorder of kidney and ureter Acute heart failure with preserved ejection fraction (HCC) Hypertension, essential Unspecified essential hypertension Chronic anticoagulation Long-term (current) use of anticoagulants pasturella bactermia Bacteremia [facility] Hyperlipidemia, unspecified hyperlipidemia type- [...] disorders of kidney [facility]* Diagnosis Paroxysmal atrial fibrillation (HCC) Atrial fibrillation [facility]* Diagnosis Renal insufficiency- Primary Unspecified disorder of kidney and ureter [facility]* Diagnosis Rib pain- Primary Chest pain, unspecified [facility]* Diagnosis Multiple thyroid nodules- Primary Nontoxic multinodular goiter [facility]* Diagnosis Upper back pain- Primary [facility]* Diagnosis Paroxysmal atrial fibrillation (HCC) Atrial fibrillation [facility] Diagnosis Paroxysmal atrial fibrillation (HCC)- Primary Atrial fibrillation [facility]* Diagnosis Compression deformity of vertebra- Primary Other acquired deformity of back or spine Centrilobular emphysema (HCC) Other emphysema Pulmonary hypertension (HCC) Other chronic pulmonary heart diseases Paroxysmal atrial fibrillation (HCC) Atrial fibrillation Rheumatoid arthritis, involving unspecified site, unspecified whether rheumatoid factor present (HCC) Chronic respiratory failure with hypoxia (HCC) Chronic respiratory failure [facility] Diagnosis Compression deformity of vertebra- Primary Other acquired deformity of back or spine [facility]* Diagnosis Compression deformity of vertebra- Primary Other acquired deformity of back or spine [facility]* Diagnosis Compression deformity of vertebra- Primary Other acquired deformity of back or spine Renal mass Unspecified disorder of kidney and ureter Liver mass Unspecified disorder of liver [facility] Diagnosis Epigastric pain- Primary Abdominal pain, epigastric Abdominal swelling, generalized Abdominal or pelvic swelling, mass, or lump, generalized Compression deformity of vertebra Other acquired deformity of back or spine [facility] Diagnosis Elevated alkaline phosphatase level- Primary Other nonspecific abnormal serum enzyme levels [facility] [facility] Diagnosis Compression deformity of vertebra Other acquired deformity of back or spine [facility] Diagnosis Paroxysmal atrial fibrillation (HCC) Atrial fibrillation [facility] Diagnosis Elevated alkaline phosphatase level- Primary Other nonspecific abnormal serum enzyme levels [facility] Diagnosis Paroxysmal atrial fibrillation (HCC) Atrial fibrillation [facility] Diagnosis Paroxysmal atrial fibrillation (HCC) Atrial fibrillation [facility] Diagnosis Chronic anticoagulation- Primary Long-term (current) [...] and gas pain [facility] Diagnosis Paroxysmal atrial fibrillation (HCC) Atrial fibrillation [facility] Diagnosis Paroxysmal atrial fibrillation (HCC) Atrial fibrillation [facility] Diagnosis GERD without esophagitis Esophageal reflux [facility] Diagnosis Herpes zoster without complication- Primary Herpes zoster without mention of complication Rash Rash and other nonspecific skin eruption [facility] Diagnosis Paroxysmal atrial fibrillation (HCC)- Primary Atrial fibrillation [facility] Diagnosis Paroxysmal atrial fibrillation (HCC)- Primary Atrial fibrillation [facility] Diagnosis Chronic anticoagulation- Primary Long-term (current) use of anticoagulants Paroxysmal atrial fibrillation (HCC) Atrial fibrillation [facility] Diagnosis 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 Mata's esophagus [facility] Diagnosis Paroxysmal atrial fibrillation (HCC)- Primary Atrial fibrillation [facility] in [facility] Diagnosis Paroxysmal atrial fibrillation (HCC)- Primary Atrial fibrillation [facility] Diagnosis Paroxysmal atrial fibrillation (HCC)- Primary Atrial fibrillation [facility]* Diagnosis Atrial fibrillation, chronic (HCC)- Primary Atrial fibrillation [facility]* Diagnosis Paroxysmal atrial fibrillation (HCC)- Primary Atrial fibrillation [facility]* Diagnosis Renal mass Unspecified disorder of kidney and ureter Liver mass Unspecified disorder of liver [facility] Diagnosis Elevated alkaline phosphatase level Other nonspecific abnormal serum enzyme levels [facility]* Diagnosis Pathological fracture, other site, initial encounter for fracture [facility]* Diagnosis Thyroid nodule Nontoxic uninodular goiter [facility]* Diagnosis Coagulopathy (HCC)- Primary Other and unspecified coagulation defects Paroxysmal atrial fibrillation (HCC) Atrial fibrillation documented in this encounter [facility] note* Diagnosis Paroxysmal atrial fibrillation (HCC)- Primary Atrial fibrillation [facility] Diagnosis Paroxysmal atrial fibrillation (HCC)- Primary [...] Other abnormal glucose documented in this encounter [facility] Plan of care note* Visit Details Visit Type -SN SOC Discipline -Long-Term Problems Problem Description Start Date Status Goals [...] in this visit SN Integumentary/Wound s Disciplines: SN 02/09/2022 Active 1 goal linked [...] this visit SN Genitourinary disease process Disciplines: SN 02/09/2022 Active 1 goal linked [...] all medications you are taking -- even wpre-vsw-hexmsrn medicines -- with your doctor and pharmacist [...] after incontinence episode. [facility] Visit Details [...] intervention scheduled/documen jil in this visit PT Referral Disciplines: Skilled [...] to call provider. 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 [facility] Visit Details Visit Type -SN ROUTINE Discipline -Long-Term Problems Problem Description Start Date Status Goals [...] this visit SN Genitourinary disease process Disciplines: SN 02/09/2022 Active 1 goal linked [...] all medications you are taking -- even ckjj-gzo-jvdvuww medicines -- with your doctor and pharmacist [...] scheduled bathroom trips. [facility] Visit Details [...] to call provider. [facility] Visit Details Visit Type -SN ROUTINE Discipline -Long-Term Problems Problem Description Start Date Status Goals [...] this visit SN Genitourinary disease process Disciplines: SN 02/09/2022 Resolved on 02/24/2022 1 goal linked [...] all medications you are taking -- even ojrk-hms-qzxcasa medicines -- with your doctor and pharmacist [...] once on Date: 02/24/22 (Z79.01). Results to Kori. *Order is in EPIC* Problem:SN Labwork Goal:SN to obtain lab specimen without difficulty when ordered throughout certification period Completed documented in this encounter [facility] Plan of care [facility]* Visit Details Visit Type -SN ROUTINE Discipline -Long-Term Problems Problem Description Start Date Status Goals [...] all medications you are taking -- even cjke-ttz-qxtfzan medicines -- with your doctor and pharmacist [...] pulmonary disease management. documented in this encounter [facility] Plan of care note* Visit Details Visit Type -SN AGENCY DC WO VISIT Discipline -Long-Term Problems Problem Description Start Date Status Goals [...] all medications you are taking -- even yofs-far-bbbmqps medicines -- with your doctor and pharmacist [...] without ongoing services documented in this encounter [facility] for referral (narrative)* Diagnostic Procedure Only (Routine) - Authorized Specialty Diagnoses / Procedures [facility] Referred To Contact US IMAGING Diagnoses Thyroid nodule Procedures US THYROID/PARATHYROID US SOFT TISSUE HEAD & NECK REAL TIME IMGE DOCWes Gloria MD [address] [place] [address] Us Imaging Referral ID Status Reason Start Date Expiration Date Visits Requested Visits Authorized [id number] Authorized Auto-Generat ed Referral 05/19/2023 1 1 [facility] for referral (narrative)* Diagnostic Procedure Only (Urgent) - Closed Specialty Diagnoses / Procedures Referred By [facility] Referred To Contact XR IMAGING Diagnoses Rib pain Procedures XR RIBS/CHEST 3V AP RIB/OBLS/CXR LEFT RADEX RIBS UNI W/POSTEROANT CH MINIMUM 3 VIEWS Shannon Chiu, SALES PROMOTION OFFICER.[employer] SUPERVISOR [address] [place] [address] Xr Imaging Referral ID Status Reason Start Date Expiration Date V isits Requested Visits Authorized [id number] Closed Auto-Generate d Referral 05/17/2022 06/16/2023 1 1 [facility] for referral (narrative)* Diagnostic Procedure Only (Routine) - Authorized Specialty Diagnoses / Procedures [facility] Referred To Contact US IMAGING Diagnoses Renal mass Liver mass Procedures US ABDOMEN COMPLETE US ABDOMINAL REAL TIME W/IMAGE DOCUMENTATION Wes Bonilla MD [address] [place] [address] Us Imaging Referral ID Status Reason Start Date Expiration Date Visits Requested Visits Authorized [id number] Authorized Auto-Generat ed Referral 09/01/2022 10/01/2023 1 1 [facility] for referral (narrative)* Diagnostic Procedure Only (Routine) - Closed Specialty Diagnoses / Procedures Referred By [facility] Referred To Contact XR IMAGING Diagnoses Abdominal swelling, generalized Epigastric pain Procedures XR ABDOMEN 1V SUPINE RADIOLOGIC EXAM ABDOMEN 1 VIEW Usman Mehta PA-C [address] [place] [address] Xr Imaging Referral ID Status Reason Start Date Expiration Date V isits Requested Visits Authorized [id number] Closed Auto-Generate d Referral 09/19/2022 10/19/2023 1 1 [facility] for referral (narrative)* Diagnostic Procedure Only (Routine) - Pending Review Specialty Diagnoses / Procedures Referred By [facility] Referred To Contact MOLECULAR & FUNCTIONAL IMAGING Diagnoses Elevated alkaline phosphatase level Procedures NM BONE WHOLE BODY BONE &/JOINT IMAGING WHOLE BODY Usman Mehta PA-C [address] [place] [address] Molecular & Functional Imaging [address] [place] [address] Referral ID Status Reason Start Date Expiration Date Visits Requested Visits Authorized [id number] Pending Review Auto-Generat ed Referral 10/05/2022 11/04/2023 1 1 [facility] for referral (narrative)* Diagnostic Procedure Only (Routine) - Closed Specialty Diagnoses / Procedures Referred By [facility] Referred To Contact US IMAGING Diagnoses Renal mass Liver mass Procedures US ABDOMEN COMPLETE US ABDOMINAL REAL TIME W/IMAGE DOCUMENTATION Wes Bonilla MD [address] [place] [address] [place] [address] Referral ID Status Reason Start Date Expiration Date V isits Requested Visits Authorized [id number] Closed Auto-Generate d Referral 09/01/2022 10/01/2023 1 1 [facility] for referral (narrative)* Diagnostic Procedure Only (Routine) - Closed Specialty Diagnoses / Procedures Referred By [facility] Referred To Contact MOLECULAR & FUNCTIONAL IMAGING Diagnoses Elevated alkaline phosphatase level Procedures NM BONE WHOLE BODY BONE &/JOINT IMAGING WHOLE BODY Usman Mehta PA-C [address] [place] [address] Molecular & Functional Imaging [address] [place] [address] Referral ID Status Reason Start Date Expiration Date V isits Requested Visits Authorized [id number] Closed Auto-Generate d Referral 10/05/2022 11/04/2023 1 1 [facility] for referral (narrative)* Diagnostic Procedure Only (Routine) - Closed Specialty Diagnoses / Procedures Referred By [facility] Referred To Contact US IMAGING Diagnoses Thyroid nodule Procedures US THYROID/PARATHYROID US SOFT TISSUE HEAD & NECK REAL TIME IMGE DOCM Wes Bonilla MD [address] [place] [address] Us Imaging [id number] Referral ID Status Reason Start Date Expiration Date V isits Requested Visits Authorized [id number] Closed Auto-Generate d Referral 04/19/2022 05/19/2023 1 1 [facility] for visit Narrative* Diagnostic Procedure Only (Routine) - Closed Specialty Diagnoses / Procedures Referred By [facility] Referred To Contact MOLECULAR & FUNCTIONAL IMAGING Diagnoses Elevated alkaline phosphatase level Procedures NM BONE WHOLE BODY BONE &/JOINT IMAGING WHOLE BODY Usman Mehta PA-C [address] [place] [address] Molecular & Functional Imaging [address] [place] [address] Referral ID Status Reason Start Date Expiration Date V isits Requested Visits Authorized [id number] Closed Auto-Generate d Referral 10/05/2022 11/04/2023 1 1 [facility] Summary Purpose Family History No Family History Records FoundNo Family History Records FoundNo Family History Records Found Advance Directives No Advanced Directives Records FoundDocuments on File Type Date 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 Directive(s) 07/07/2021 1:21 PM Advance Directive(s) 07/06/2021 8:02 AM Advance Directive(s) 11/21/2019 3:25 PM Documents on File Type Date Recorded 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(s) 07/07/2021 1:21 PM Advance Directive(s) 07/06/2021 8:02 AM Advance Directive(s) 11/21/2019 3:25 PM Documents on File Type Date Recorded 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 Directive(s) 02/09/2022 12:27 PM Latest Code Status on File Code Status Date Activated Date Inactivated Comments Full Code 02/10/2022 11:13 AM Documents on File Type Date Recorded 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 Directive(s) 02/09/2022 12:27 PM [...] effusion Procedures CONSULT TO PULM/CRITICAL CARE OFFICE/OUTPATIENT [facility] 60-74 MINUTES Wes Bonilla MD [address] [place] [address] Referral ID Status Reason Start Date Expiration Date Visits Requested Visits Authorized [id number] Authorized PCP Requested Referral 08/25/2021 08/25/2022 1 1 Specialty Diagnoses / Procedures Referred By [facility] Referred To Contact General Surgery Diagnoses Thyroid nodule History of colonic polyps Procedures CONSULT TO GENERAL SURGERY OFFICE/OUTPATIENT [facility] 60-74 MINUTES Wes Bonilla MD [address] [place] [address] Referral ID Status Reason Start Date Expiration Date Visits Requested Visits Authorized [id number] Authorized PCP Requested Referral 10/04/2021 10/04/2022 1 1 Referral ID Status Reason Start Date Expiration Date Visits Requested Visits Authorized [id number] Authorized PCP Requested Referral 02/14/2022 02/14/2023 1 1 Specialty Diagnoses / Procedures Referred By [facility] Referred To Contact General Surgery Diagnoses Multiple thyroid nodules Procedures CONSULT TO GENERAL SURGERY OFFICE/OUTPATIENT [facility] 60-74 MINUTES Dalila Jensen APRN.[employer]UST[employer] SUPERVISOR [address] [place] [address] Referral ID Status Reason Start Date Expiration Date Visits Requested Visits Authorized [id number] Authorized PCP Requested Referral 05/20/2023 1 1 Specialty Diagnoses / Procedures Referred By [facility] Referred To Contact Orthopedics Diagnoses Upper back pain Procedures CONSULT TO ORTHOPAEDICS OFFICE/OUTPATIENT [facility] 60-74 MINUTES Shanta Logan APRN.INDUSTRI[employer]MIC[employer] SUPERVISOR [address] [place] [address] Referral ID Status Reason Start Date Expiration Date Visits Requested Visits Authorized [id number] Authorized PCP Requested Referral 06/29/2022 06/29/2023 1 1 Specialty Diagnoses / Procedures Referred By [facility] Referred To Contact Pain Management Diagnoses Compression deformity of vertebra Procedures CONSULT TO PAIN MGT OFFICE/OUTPATIENT [facility] 60-74 MINUTES Wes Bonilla MD [address] [place] [address] Referral ID Status Reason Start Date Expiration Date Visits Requested Visits Authorized [id number] Authorized PCP Requested Referral 08/19/2022 08/19/2023 1 1 Specialty Diagnoses / Procedures Referred By [facility] Referred To Contact MR IMAGING Diagnoses Pathological fracture, other site, initial encounter for fracture Procedures MRI THORACIC SPINE WO IVCON MRI SPINAL CANAL THORACIC W/O CONTRAST Usman Cadet PA-C [address] [place] [address] [place] [address] Referral ID Status Reason Start Date Expiration Date V isits Requested Visits Authorized [id number] Closed Auto-Generate d Referral 07/21/2022 08/20/2023 1 1 Specialty Diagnoses / Procedures Referred By [facility] Referred To Contact Gastroenterology Diagnoses 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 Gastroesophageal reflux disease, unspecified whether esophagitis present Iron deficiency anemia, unspecified iron deficiency anemia type Procedures CONSULT TO GASTROENTEROLOGY Wes Bonilla MD [address] [place] [address] Referral ID Status Reason Start Date Expiration Date Visits Requested Visits Authorized [id number] Ref Not Required PCP Requested Referral 05/10/2023 05/09/2024 1 1 Additional Source Comments INFORMATION SOURCE (unrecogn ized section and content) DATE CREATED AUTHOR AUTHOR'S ORGANIZ ATION 05/13/2023 [facility] DATE CREATED AUTHOR AUTHOR'S ORGANIZ ATION 06/11/2023 [facility] Source Comments (unrecognize d section and content) In the event this informatio n is protected by the Federal Confidentiality of Alcohol and Drug Abuse Patient Records regulations: The Federal rules restrict any use of the information to criminally investigate or prosecute any alcohol or drug abuse patient.[facility] event this information is protected by the Federal Confidentiality of Alcohol and Drug Abuse Patient Records regulations: The Federal rules restrict any use of the information to criminally investigate or prosecute any alcohol or drug abuse patient.[facility] the event this information is protected by the Federal Confidentiality of Alcohol and Drug Abuse Patient Records regulations: The Federal rules restrict any use of the information to criminally investigate or prosecute any alcohol or drug abuse patient.[facility] the event this information is protected by the Federal Confidentiality of Alcohol and Drug Abuse Patient Records regulations: The Federal rules restrict any use of the information to criminally investigate or prosecute any alcohol or drug abuse patient.[facility] the event this information is protected by the Federal Confidentiality of Alcohol and Drug Abuse Patient Records regulations: The Federal rules restrict any use of the information to criminally investigate or prosecute any alcohol or drug abuse patient.[facility] the event this information is protected by the Federal Confidentiality of Alcohol and Drug Abuse Patient Records regulations: The Federal rules restrict any use of the information to criminally investigate or prosecute any alcohol or drug abuse patient.[facility] the event this information is protected by the Federal Confidentiality of Alcohol and Drug Abuse Patient Records regulations: The Federal rules restrict any use of the information to criminally investigate or prosecute any alcohol or drug abuse patient.[facility] the event this information is protected by the Federal Confidentiality of Alcohol and Drug Abuse Patient Records regulations: The Federal rules restrict any use of the information to criminally investigate or prosecute any alcohol or drug abuse patient.[facility] the event this information is protected by the Federal Confidentiality of Alcohol and Drug Abuse Patient Records regulations: The Federal rules restrict any use of the information to criminally investigate or prosecute any alcohol or drug abuse patient.[facility] the event this information is protected by the Federal Confidentiality of Alcohol and Drug Abuse Patient Records regulations: The Federal rules restrict any use of the information to criminally investigate or prosecute any alcohol or drug abuse patient.[facility] the event this information is protected by the Federal Confidentiality of Alcohol and Drug Abuse Patient Records regulations: The Federal rules restrict any use of the information to criminally investigate or prosecute any alcohol or drug abuse patient.[facility] the event this information is protected by the Federal Confidentiality of Alcohol and Drug Abuse Patient Records regulations: The Federal rules restrict any use of the information to criminally investigate or prosecute any alcohol or drug abuse patient.[facility] the event this information is protected by the Federal Confidentiality of Alcohol and Drug Abuse Patient Records regulations: The Federal rules restrict any use of the information to criminally investigate or prosecute any alcohol or drug abuse patient.[facility] the event this information is protected by the Federal Confidentiality of Alcohol and Drug Abuse Patient Records regulations: The Federal rules restrict any use of the information to criminally investigate or prosecute any alcohol or drug abuse patient.[facility] the event this information is protected by the Federal Confidentiality of Alcohol and Drug Abuse Patient Records regulations: The Federal rules restrict any use of the information to criminally investigate or prosecute any alcohol or drug abuse patient.[facility] the event this information is protected by the Federal Confidentiality of Alcohol and Drug Abuse Patient Records regulations: The Federal rules restrict any use of the information to criminally investigate or prosecute any alcohol or drug abuse patient.[facility] the event this information is protected by the Federal Confidentiality of Alcohol and Drug Abuse Patient Records regulations: The Federal rules restrict any use of the information to criminally investigate or prosecute any alcohol or drug abuse patient.[facility] the event this information is protected by the Federal Confidentiality of Alcohol and Drug Abuse Patient Records regulations: The Federal rules restrict any use of the information to criminally investigate or prosecute any alcohol or drug abuse patient.[facility] the event this information is protected by the Federal Confidentiality of Alcohol and Drug Abuse Patient Records regulations: The Federal rules restrict any use of the information to criminally investigate or prosecute any alcohol or drug abuse patient.[facility] the event this information is protected by the Federal Confidentiality of Alcohol and Drug Abuse Patient Records regulations: The Federal rules restrict any use of the information to criminally investigate or prosecute any alcohol or drug abuse patient.[facility] the event this information is protected by the Federal Confidentiality of Alcohol and Drug Abuse Patient Records regulations: The Federal rules restrict any use of the information to criminally investigate or prosecute any alcohol or drug abuse patient.[facility] the event this information is protected by the Federal Confidentiality of Alcohol and Drug Abuse Patient Records regulations: The Federal rules restrict any use of the information to criminally investigate or prosecute any alcohol or drug abuse patient.[facility] the event this information is protected by the Federal Confidentiality of Alcohol and Drug Abuse Patient Records regulations: The Federal rules restrict any use of the information to criminally investigate or prosecute any alcohol or drug abuse patient.[facility] the event this information is protected by the Federal Confidentiality of Alcohol and Drug Abuse Patient Records regulations: The Federal rules restrict any use of the information to criminally investigate or prosecute any alcohol or drug abuse patient.[facility] the event this information is protected by the Federal Confidentiality of Alcohol and Drug Abuse Patient Records regulations: The Federal rules restrict any use of the information to criminally investigate or prosecute any alcohol or drug abuse patient.[facility] the event this information is protected by the Federal Confidentiality of Alcohol and Drug Abuse Patient Records regulations: The Federal rules restrict any use of the information to criminally investigate or prosecute any alcohol or drug abuse patient.[facility] HospitalIn the event this information is protected by the Federal Confidentiality of Alcohol and Drug Abuse Patient Records regulations: The Federal rules restrict any use of the information to criminally investigate or prosecute any alcohol or drug abuse patient.[facility] HospitalIn the event this information is protected by the Federal Confidentiality of Alcohol and Drug Abuse Patient Records regulations: The Federal rules restrict any use of the information to criminally investigate or prosecute any alcohol or drug abuse patient.[facility] HospitalIn the event this information is protected by the Federal Confidentiality of Alcohol and Drug Abuse Patient Records regulations: The Federal rules restrict any use of the information to criminally investigate or prosecute any alcohol or drug abuse patient.[facility] HospitalIn the event this information is protected by the Federal Confidentiality of Alcohol and Drug Abuse Patient Records regulations: The Federal rules restrict any use of the information to criminally investigate or prosecute any alcohol or drug abuse patient.[facility] HospitalIn the event this information is protected by the Federal Confidentiality of Alcohol and Drug Abuse Patient Records regulations: The Federal rules restrict any use of the information to criminally investigate or prosecute any alcohol or drug abuse patient.[facility] HospitalIn the event this information is protected by the Federal Confidentiality of Alcohol and Drug Abuse Patient Records regulations: The Federal rules restrict any use of the information to criminally investigate or prosecute any alcohol or drug abuse patient.[facility] HospitalIn the event this information is protected by the Federal Confidentiality of Alcohol and Drug Abuse Patient Records regulations: The Federal rules restrict any use of the information to criminally investigate or prosecute any alcohol or drug abuse patient.[facility] HospitalIn the event this information is protected by the Federal Confidentiality of Alcohol and Drug Abuse Patient Records regulations: The Federal rules restrict any use of the information to criminally investigate or prosecute any alcohol or drug abuse patient.[facility] HospitalIn the event this information is protected by the Federal Confidentiality of Alcohol and Drug Abuse Patient Records regulations: The Federal rules restrict any use of the information to criminally investigate or prosecute any alcohol or drug abuse patient.[facility] HospitalIn the event this information is protected by the Federal Confidentiality of Alcohol and Drug Abuse Patient Records regulations: The Federal rules restrict any use of the information to criminally investigate or prosecute any alcohol or drug abuse patient.[facility] HospitalIn the event this information is protected by the Federal Confidentiality of Alcohol and Drug Abuse Patient Records regulations: The Federal rules restrict any use of the information to criminally investigate or prosecute any alcohol or drug abuse patient.[facility] HospitalIn the event this information is protected by the Federal Confidentiality of Alcohol and Drug Abuse Patient Records regulations: The Federal rules restrict any use of the information to criminally investigate or prosecute any alcohol or drug abuse patient.[facility] HospitalIn the event this information is protected by the Federal Confidentiality of Alcohol and Drug Abuse Patient Records regulations: The Federal rules restrict any use of the information to criminally investigate or prosecute any alcohol or drug abuse patient.[facility] HospitalIn the event this information is protected by the Federal Confidentiality of Alcohol and Drug Abuse Patient Records regulations: The Federal rules restrict any use of the information to criminally investigate or prosecute any alcohol or drug abuse patient.[facility] HospitalIn the event this information is protected by the Federal Confidentiality of Alcohol and Drug Abuse Patient Records regulations: The Federal rules restrict any use of the information to criminally investigate or prosecute any alcohol or drug abuse patient.[facility] HospitalIn the event this information is protected by the Federal Confidentiality of Alcohol and Drug Abuse Patient Records regulations: The Federal rules restrict any use of the information to criminally investigate or prosecute any alcohol or drug abuse patient.[facility] HospitalIn the event this information is protected by the Federal Confidentiality of Alcohol and Drug Abuse Patient Records regulations: The Federal rules restrict any use of the information to criminally investigate or prosecute any alcohol or drug abuse patient.[facility] HospitalIn the event this information is protected by the Federal Confidentiality of Alcohol and Drug Abuse Patient Records regulations: The Federal rules restrict any use of the information to criminally investigate or prosecute any alcohol or drug abuse patient.[facility] HospitalIn the event this information is protected by the Federal Confidentiality of Alcohol and Drug Abuse Patient Records regulations: The Federal rules restrict any use of the information to criminally investigate or prosecute any alcohol or drug abuse patient.[facility] HospitalIn the event this information is protected by the Federal Confidentiality of Alcohol and Drug Abuse Patient Records regulations: The Federal rules restrict any use of the information to criminally investigate or prosecute any alcohol or drug abuse patient.[facility] HospitalIn the event this information is protected by the Federal Confidentiality of Alcohol and Drug Abuse Patient Records regulations: The Federal rules restrict any use of the information to criminally investigate or prosecute any alcohol or drug abuse patient.[facility] HospitalIn the event this information is protected by the Federal Confidentiality of Alcohol and Drug Abuse Patient Records regulations: The Federal rules restrict any use of the information to criminally investigate or prosecute any alcohol or drug abuse patient.[facility]In the event this information is protected by the Federal Confidentiality of Alcohol and Drug Abuse Patient Records regulations: The Federal rules restrict any use of the information to criminally investigate or prosecute any alcohol or drug abuse patient.[facility] HospitalIn the event this information is protected by the Federal Confidentiality of Alcohol and Drug Abuse Patient Records regulations: The Federal rules restrict any use of the information to criminally investigate or prosecute any alcohol or drug abuse patient.[facility] HospitalIn the event this information is protected by the Federal Confidentiality of Alcohol and Drug Abuse Patient Records regulations: The Federal rules restrict any use of the information to criminally investigate or prosecute any alcohol or drug abuse patient.[facility] HospitalIn the event this information is protected by the Federal Confidentiality of Alcohol and Drug Abuse Patient Records regulations: The Federal rules restrict any use of the information to criminally investigate or prosecute any alcohol or drug abuse patient.[facility] HospitalIn the event this information is protected by the Federal Confidentiality of Alcohol and Drug Abuse Patient Records regulations: The Federal rules restrict any use of the information to criminally investigate or prosecute any alcohol or drug abuse patient.[facility] HospitalIn the event this information is protected by the Federal Confidentiality of Alcohol and Drug Abuse Patient Records regulations: The Federal rules restrict any use of the information to criminally investigate or prosecute any alcohol or drug abuse patient.[facility] HospitalIn the event this information is protected by the Federal Confidentiality of Alcohol and Drug Abuse Patient Records regulations: The Federal rules restrict any use of the information to criminally investigate or prosecute any alcohol or drug abuse patient.[facility] HospitalIn the event this information is protected by the Federal Confidentiality of Alcohol and Drug Abuse Patient Records regulations: The Federal rules restrict any use of the information to criminally investigate or prosecute any alcohol or drug abuse patient.[facility] HospitalIn the event this information is protected by the Federal Confidentiality of Alcohol and Drug Abuse Patient Records regulations: The Federal rules restrict any use of the information to criminally investigate or prosecute any alcohol or drug abuse patient.[facility] HospitalIn the event this information is protected by the Federal Confidentiality of Alcohol and Drug Abuse Patient Records regulations: The Federal rules restrict any use of the information to criminally investigate or prosecute any alcohol or drug abuse patient.[facility] HospitalIn the event this information is protected by the Federal Confidentiality of Alcohol and Drug Abuse Patient Records regulations: The Federal rules restrict any use of the information to criminally investigate or prosecute any alcohol or drug abuse patient.[facility] HospitalIn the event this information is protected by the Federal Confidentiality of Alcohol and Drug Abuse Patient Records regulations: The Federal rules restrict any use of the information to criminally investigate or prosecute any alcohol or drug abuse patient.[facility] HospitalIn the event this information is protected by the Federal Confidentiality of Alcohol and Drug Abuse Patient Records regulations: The Federal rules restrict any use of the information to criminally investigate or prosecute any alcohol or drug abuse patient.[facility] HospitalIn the event this information is protected by the Federal Confidentiality of Alcohol and Drug Abuse Patient Records regulations: The Federal rules restrict any use of the information to criminally investigate or prosecute any alcohol or drug abuse patient.[facility] HospitalIn the event this information is protected by the Federal Confidentiality of Alcohol and Drug Abuse Patient Records regulations: The Federal rules restrict any use of the information to criminally investigate or prosecute any alcohol or drug abuse patient.[facility] HospitalIn the event this information is protected by the Federal Confidentiality of Alcohol and Drug Abuse Patient Records regulations: The Federal rules restrict any use of the information to criminally investigate or prosecute any alcohol or drug abuse patient.[facility] HospitalIn the event this information is protected by the Federal Confidentiality of Alcohol and Drug Abuse Patient Records regulations: The Federal rules restrict any use of the information to criminally investigate or prosecute any alcohol or drug abuse patient.[facility] HospitalIn the event this information is protected by the Federal Confidentiality of Alcohol and Drug Abuse Patient Records regulations: The Federal rules restrict any use of the information to criminally investigate or prosecute any alcohol or drug abuse patient.[facility] HospitalIn the event this information is protected by the Federal Confidentiality of Alcohol and Drug Abuse Patient Records regulations: The Federal rules restrict any use of the information to criminally investigate or prosecute any alcohol or drug abuse patient.[facility] HospitalIn the event this information is protected by the Federal Confidentiality of Alcohol and Drug Abuse Patient Records regulations: The Federal rules restrict any use of the information to criminally investigate or prosecute any alcohol or drug abuse patient.[facility] HospitalIn the event this information is protected by the Federal Confidentiality of Alcohol and Drug Abuse Patient Records regulations: The Federal rules restrict any use of the information to criminally investigate or prosecute any alcohol or drug abuse patient.[facility] HospitalIn the event this information is protected by the Federal Confidentiality of Alcohol and Drug Abuse Patient Records regulations: The Federal rules restrict any use of the information to criminally investigate or prosecute any alcohol or drug abuse patient.[facility] HospitalIn the event this information is protected by the Federal Confidentiality of Alcohol and Drug Abuse Patient Records regulations: The Federal rules restrict any use of the information to criminally investigate or prosecute any alcohol or drug abuse patient.[facility] HospitalIn the event this information is protected by the Federal Confidentiality of Alcohol and Drug Abuse Patient Records regulations: The Federal rules restrict any use of the information to criminally investigate or prosecute any alcohol or drug abuse patient.[facility] HospitalIn the event this information is protected by the Federal Confidentiality of Alcohol and Drug Abuse Patient Records regulations: The Federal rules restrict any use of the information to criminally investigate or prosecute any alcohol or drug abuse patient.[facility] HospitalIn the event this information is protected by the Federal Confidentiality of Alcohol and Drug Abuse Patient Records regulations: The Federal rules restrict any use of the information to criminally investigate or prosecute any alcohol or drug abuse patient.[facility] HospitalIn the event this information is protected by the Federal Confidentiality of Alcohol and Drug Abuse Patient Records regulations: The Federal rules restrict any use of the information to criminally investigate or prosecute any alcohol or drug abuse patient.[facility] HospitalIn the event this information is protected by the Federal Confidentiality of Alcohol and Drug Abuse Patient Records regulations: The Federal rules restrict any use of the information to criminally investigate or prosecute any alcohol or drug abuse patient.[facility] HospitalIn the event this information is protected by the Federal Confidentiality of Alcohol and Drug Abuse Patient Records regulations: The Federal rules restrict any use of the information to criminally investigate or prosecute any alcohol or drug abuse patient.[facility] HospitalIn the event this information is protected by the Federal Confidentiality of Alcohol and Drug Abuse Patient Records regulations: The Federal rules restrict any use of the information to criminally investigate or prosecute any alcohol or drug abuse patient.[facility] HospitalIn the event this information is protected by the Federal Confidentiality of Alcohol and Drug Abuse Patient Records regulations: The Federal rules restrict any use of the information to criminally investigate or prosecute any alcohol or drug abuse patient.[facility] HospitalIn the event this information is protected by the Federal Confidentiality of Alcohol and Drug Abuse Patient Records regulations: The Federal rules restrict any use of the information to criminally investigate or prosecute any alcohol or drug abuse patient.[facility] HospitalIn the event this information is protected by the Federal Confidentiality of Alcohol and Drug Abuse Patient Records regulations: The Federal rules restrict any use of the information to criminally investigate or prosecute any alcohol or drug abuse patient.[facility] HospitalIn the event this information is protected by the Federal Confidentiality of Alcohol and Drug Abuse Patient Records regulations: The Federal rules restrict any use of the information to criminally investigate or prosecute any alcohol or drug abuse patient.[facility] HospitalIn the event this information is protected by the Federal Confidentiality of Alcohol and Drug Abuse Patient Records regulations: The Federal rules restrict any use of the information to criminally investigate or prosecute any alcohol or drug abuse patient.[facility] HospitalIn the event this information is protected by the Federal Confidentiality of Alcohol and Drug Abuse Patient Records regulations: The Federal rules restrict any use of the information to criminally investigate or prosecute any alcohol or drug abuse patient.[facility] HospitalIn the event this information is protected by the Federal Confidentiality of Alcohol and Drug Abuse Patient Records regulations: The Federal rules restrict any use of the information to criminally investigate or prosecute any alcohol or drug abuse patient.[facility] HospitalIn the event this information is protected by the Federal Confidentiality of Alcohol and Drug Abuse Patient Records regulations: The Federal rules restrict any use of the information to criminally investigate or prosecute any alcohol or drug abuse patient.[facility] HospitalIn the event this information is protected by the Federal Confidentiality of Alcohol and Drug Abuse Patient Records regulations: The Federal rules restrict any use of the information to criminally investigate or prosecute any alcohol or drug abuse patient.[facility] HospitalIn the event this information is protected by the Federal Confidentiality of Alcohol and Drug Abuse Patient Records regulations: The Federal rules restrict any use of the information to criminally investigate or prosecute any alcohol or drug abuse patient.[facility] HospitalIn the event this information is protected by the Federal Confidentiality of Alcohol and Drug Abuse Patient Records regulations: The Federal rules restrict any use of the information to criminally investigate or prosecute any alcohol or drug abuse patient.[facility] HospitalIn the event this information is protected by the Federal Confidentiality of Alcohol and Drug Abuse Patient Records regulations: The Federal rules restrict any use of the information to criminally investigate or prosecute any alcohol or drug abuse patient.[facility] HospitalIn the event this information is protected by the Federal Confidentiality of Alcohol and Drug Abuse Patient Records regulations: The Federal rules restrict any use of the information to criminally investigate or prosecute any alcohol or drug abuse patient.[facility] HospitalIn the event this information is protected by the Federal Confidentiality of Alcohol and Drug Abuse Patient Records regulations: The Federal rules restrict any use of the information to criminally investigate or prosecute any alcohol or drug abuse patient.[facility] HospitalIn the event this information is protected by the Federal Confidentiality of Alcohol and Drug Abuse Patient Records regulations: The Federal rules restrict any use of the information to criminally investigate or prosecute any alcohol or drug abuse patient.[facility] HospitalIn the event this information is protected by the Federal Confidentiality of Alcohol and Drug Abuse Patient Records regulations: The Federal rules restrict any use of the information to criminally investigate or prosecute any alcohol or drug abuse patient.[facility] HospitalIn the event this information is protected by the Federal Confidentiality of Alcohol and Drug Abuse Patient Records regulations: The Federal rules restrict any use of the information to criminally investigate or prosecute any alcohol or drug abuse patient.[facility] HospitalIn the event this information is protected by the Federal Confidentiality of Alcohol and Drug Abuse Patient Records regulations: The Federal rules restrict any use of the information to criminally investigate or prosecute any alcohol or drug abuse patient.[facility] HospitalIn the event this information is protected by the Federal Confidentiality of Alcohol and Drug Abuse Patient Records regulations: The Federal rules restrict any use of the information to criminally investigate or prosecute any alcohol or drug abuse patient.[facility] HospitalIn the event this information is protected by the Federal Confidentiality of Alcohol and Drug Abuse Patient Records regulations: The Federal rules restrict any use of the information to criminally investigate or prosecute any alcohol or drug abuse patient.[facility]In the event this information is protected by the Federal Confidentiality of Alcohol and Drug Abuse Patient Records regulations: The Federal rules restrict any use of the information to criminally investigate or prosecute any alcohol or drug abuse patient.[facility] HospitalIn the event this information is protected by the Federal Confidentiality of Alcohol and Drug Abuse Patient Records regulations: The Federal rules restrict any use of the information to criminally investigate or prosecute any alcohol or drug abuse patient.[facility] HospitalIn the event this information is protected by the Federal Confidentiality of Alcohol and Drug Abuse Patient Records regulations: The Federal rules restrict any use of the information to criminally investigate or prosecute any alcohol or drug abuse patient.[facility] HospitalIn the event this information is protected by the Federal Confidentiality of Alcohol and Drug Abuse Patient Records regulations: The Federal rules restrict any use of the information to criminally investigate or prosecute any alcohol or drug abuse patient.[facility] HospitalIn the event this information is protected by the Federal Confidentiality of Alcohol and Drug Abuse Patient Records regulations: The Federal rules restrict any use of the information to criminally investigate or prosecute any alcohol or drug abuse patient.[facility] HospitalIn the event this information is protected by the Federal Confidentiality of Alcohol and Drug Abuse Patient Records regulations: The Federal rules restrict any use of the information to criminally investigate or prosecute any alcohol or drug abuse patient.[facility] HospitalIn the event this information is protected by the Federal Confidentiality of Alcohol and Drug Abuse Patient Records regulations: The Federal rules restrict any use of the information to criminally investigate or prosecute any alcohol or drug abuse patient.[facility] HospitalIn the event this information is protected by the Federal Confidentiality of Alcohol and Drug Abuse Patient Records regulations: The Federal rules restrict any use of the information to criminally investigate or prosecute any alcohol or drug abuse patient.[facility] HospitalIn the event this information is protected by the Federal Confidentiality of Alcohol and Drug Abuse Patient Records regulations: The Federal rules restrict any use of the information to criminally investigate or prosecute any alcohol or drug abuse patient.[facility] HospitalIn the event this information is protected by the Federal Confidentiality of Alcohol and Drug Abuse Patient Records regulations: The Federal rules restrict any use of the information to criminally investigate or prosecute any alcohol or drug abuse patient.[facility] HospitalIn the event this information is protected by the Federal Confidentiality of Alcohol and Drug Abuse Patient Records regulations: The Federal rules restrict any use of the information to criminally investigate or prosecute any alcohol or drug abuse patient.[facility] HospitalIn the event this information is protected by the Federal Confidentiality of Alcohol and Drug Abuse Patient Records regulations: The Federal rules restrict any use of the information to criminally investigate or prosecute any alcohol or drug abuse patient.[facility] HospitalIn the event this information is protected by the Federal Confidentiality of Alcohol and Drug Abuse Patient Records regulations: The Federal rules restrict any use of the information to criminally investigate or prosecute any alcohol or drug abuse patient.[facility] HospitalIn the event this information is protected by the Federal Confidentiality of Alcohol and Drug Abuse Patient Records regulations: The Federal rules restrict any use of the information to criminally investigate or prosecute any alcohol or drug abuse patient.[facility] HospitalIn the event this information is protected by the Federal Confidentiality of Alcohol and Drug Abuse Patient Records regulations: The Federal rules restrict any use of the information to criminally investigate or prosecute any alcohol or drug abuse patient.[facility] HospitalIn the event this information is protected by the Federal Confidentiality of Alcohol and Drug Abuse Patient Records regulations: The Federal rules restrict any use of the information to criminally investigate or prosecute any alcohol or drug abuse patient.[facility] HospitalIn the event this information is protected by the Federal Confidentiality of Alcohol and Drug Abuse Patient Records regulations: The Federal rules restrict any use of the information to criminally investigate or prosecute any alcohol or drug abuse patient.[facility] HospitalIn the event this information is protected by the Federal Confidentiality of Alcohol and Drug Abuse Patient Records regulations: The Federal rules restrict any use of the information to criminally investigate or prosecute any alcohol or drug abuse patient.[facility] HospitalIn the event this information is protected by the Federal Confidentiality of Alcohol and Drug Abuse Patient Records regulations: The Federal rules restrict any use of the information to criminally investigate or prosecute any alcohol or drug abuse patient.[facility] HospitalIn the event this information is protected by the Federal Confidentiality of Alcohol and Drug Abuse Patient Records regulations: The Federal rules restrict any use of the information to criminally investigate or prosecute any alcohol or drug abuse patient.[facility] HospitalIn the event this information is protected by the Federal Confidentiality of Alcohol and Drug Abuse Patient Records regulations: The Federal rules restrict any use of the information to criminally investigate or prosecute any alcohol or drug abuse patient.[facility] HospitalIn the event this information is protected by the Federal Confidentiality of Alcohol and Drug Abuse Patient Records regulations: The Federal rules restrict any use of the information to criminally investigate or prosecute any alcohol or drug abuse patient.[facility] HospitalIn the event this information is protected by the Federal Confidentiality of Alcohol and Drug Abuse Patient Records regulations: The Federal rules restrict any use of the information to criminally investigate or prosecute any alcohol or drug abuse patient.[facility] HospitalIn the event this information is protected by the Federal Confidentiality of Alcohol and Drug Abuse Patient Records regulations: The Federal rules restrict any use of the information to criminally investigate or prosecute any alcohol or drug abuse patient.[facility] HospitalIn the event this information is protected by the Federal Confidentiality of Alcohol and Drug Abuse Patient Records regulations: The Federal rules restrict any use of the information to criminally investigate or prosecute any alcohol or drug abuse patient.[facility] HospitalIn the event this information is protected by the Federal Confidentiality of Alcohol and Drug Abuse Patient Records regulations: The Federal rules restrict any use of the information to criminally investigate or prosecute any alcohol or drug abuse patient.[facility] HospitalIn the event this information is protected by the Federal Confidentiality of Alcohol and Drug Abuse Patient Records regulations: The Federal rules restrict any use of the information to criminally investigate or prosecute any alcohol or drug abuse patient.[facility] HospitalIn the event this information is protected by the Federal Confidentiality of Alcohol and Drug Abuse Patient Records regulations: The Federal rules restrict any use of the information to criminally investigate or prosecute any alcohol or drug abuse patient.[facility] HospitalIn the event this information is protected by the Federal Confidentiality of Alcohol and Drug Abuse Patient Records regulations: The Federal rules restrict any use of the information to criminally investigate or prosecute any alcohol or drug abuse patient.[facility] HospitalIn the event this information is protected by the Federal Confidentiality of Alcohol and Drug Abuse Patient Records regulations: The Federal rules restrict any use of the information to criminally investigate or prosecute any alcohol or drug abuse patient.[facility] HospitalIn the event this information is protected by the Federal Confidentiality of Alcohol and Drug Abuse Patient Records regulations: The Federal rules restrict any use of the information to criminally investigate or prosecute any alcohol or drug abuse patient.[facility] HospitalIn the event this information is protected by the Federal Confidentiality of Alcohol and Drug Abuse Patient Records regulations: The Federal rules restrict any use of the information to criminally investigate or prosecute any alcohol or drug abuse patient.[facility] HospitalIn the event this information is protected by the Federal Confidentiality of Alcohol and Drug Abuse Patient Records regulations: The Federal rules restrict any use of the information to criminally investigate or prosecute any alcohol or drug abuse patient.[facility] HospitalIn the event this information is protected by the Federal Confidentiality of Alcohol and Drug Abuse Patient Records regulations: The Federal rules restrict any use of the information to criminally investigate or prosecute any alcohol or drug abuse patient.[facility] HospitalIn the event this information is protected by the Federal Confidentiality of Alcohol and Drug Abuse Patient Records regulations: The Federal rules restrict any use of the information to criminally investigate or prosecute any alcohol or drug abuse patient.[facility] HospitalIn the event this information is protected by the Federal Confidentiality of Alcohol and Drug Abuse Patient Records regulations: The Federal rules restrict any use of the information to criminally investigate or prosecute any alcohol or drug abuse patient.[facility] HospitalIn the event this information is protected by the Federal Confidentiality of Alcohol and Drug Abuse Patient Records regulations: The Federal rules restrict any use of the information to criminally investigate or prosecute any alcohol or drug abuse patient.[facility] HospitalIn the event this information is protected by the Federal Confidentiality of Alcohol and Drug Abuse Patient Records regulations: The Federal rules restrict any use of the information to criminally investigate or prosecute any alcohol or drug abuse patient.[facility] HospitalIn the event this information is protected by the Federal Confidentiality of Alcohol and Drug Abuse Patient Records regulations: The Federal rules restrict any use of the information to criminally investigate or prosecute any alcohol or drug abuse patient.[facility] HospitalIn the event this information is protected by the Federal Confidentiality of Alcohol and Drug Abuse Patient Records regulations: The Federal rules restrict any use of the information to criminally investigate or prosecute any alcohol or drug abuse patient.[facility] HospitalIn the event this information is protected by the Federal Confidentiality of Alcohol and Drug Abuse Patient Records regulations: The Federal rules restrict any use of the information to criminally investigate or prosecute any alcohol or drug abuse patient.[facility] HospitalIn the event this information is protected by the Federal Confidentiality of Alcohol and Drug Abuse Patient Records regulations: The Federal rules restrict any use of the information to criminally investigate or prosecute any alcohol or drug abuse patient.[facility] HospitalIn the event this information is protected by the Federal Confidentiality of Alcohol and Drug Abuse Patient Records regulations: The Federal rules restrict any use of the information to criminally investigate or prosecute any alcohol or drug abuse patient.[facility] Reason for Visit (unrecogniz ed section and [...] encounter-disregard Specialty Diagnoses / Procedures Referred By Contgale t Referred To Contact [facility] Home [facility] [address] [place] [id number] Referral ID Status Reason Start Date Expiration Date Visits Re quested Visits Authorized [id number] 1 Reason Onset Date Comments Community [...] Results - Mri Reason Onset Date Comments M 08/29/2022 Telephonic outre ach Reason Comments Follow [...] Denies chest pain Reason Onset Date Comments [facility] 09/22/2022 Telephonic outre ach Reason Comments Patient Request Reason Comments Orders Reason Comments Abdominal Pain Follow up Reason Onset Date Comments Refill Request 01/04/2023 Reason Comments blisters/rash possible shingles Reason Comments Rash L arm and back of ne ck x 3 days Reason Onset Date Comments [facility] 01/16/2023 Routine outreach Reason Comments Shingles Reason Comments INR direction Reason Comments Patient Question INR/Coumadin Reason Onset Date Comments CD 02/14/2023 Routine outreach Reason Onset Date Comments Refill Request 02/22/2023 Reason Comments Anticoagulation Reason Onset Date Comments [facility] 03/15/2023 Routine outreach Reason Comments Radiology NM Specialty Diagnoses / Procedures Referred By Contac t Referred To Contact MOLECULAR & FUNCTIONAL IMAGING Diagnoses Elevated alkaline phosphatase level Procedures NM BONE WHOLE BODY BONE &/JOINT IMAGING WHOLE BODY Usman Mehta PA-C [address] [place] [address] Molecular & Functional Imaging [address] [place], [place] [id number] Referral ID Status Reason Start Date Expiration Date V isits Requested Visits Authorized [id number] Closed Auto-Generate d Referral 10/05/2022 11/04/2023 1 1 Reason Comments Radiology US Specialty Diagnoses / Procedures Referred By Contac t Referred To Contact US IMAGING Diagnoses Renal mass Liver mass Procedures US ABDOMEN COMPLETE US ABDOMINAL REAL TIME W/IMAGE DOCUMENTATION Wes Bonilla MD [address] [place] [address] [place] [address] Referral ID Status Reason Start Date Expiration Date V isits Requested Visits Authorized [id number] Closed Auto-Generate d Referral 09/01/2022 10/01/2023 1 1 Specialty Diagnoses / Procedures Referred By Contac t Referred To Contact MR IMAGING Diagnoses Pathological fracture, other site, initial encounter for fracture Procedures MRI THORACIC SPINE WO IVCON MRI SPINAL CANAL THORACIC W/O CONTRAST MATRL Usman Mehta PA-C [address] [place] [address] [place] [address] Referral ID Status Reason Start Date Expiration Date V isits Requested Visits Authorized [id number] Closed Auto-Generate d Referral 07/21/2022 08/20/2023 1 1 Specialty Diagnoses / Procedures Referred By Contac t Referred To Contact US IMAGING Diagnoses Thyroid nodule Procedures US THYROID/PARATHYROID US SOFT TISSUE HEAD & NECK REAL TIME IMGE DOCM Wes Bonilla MD [address] [place] [address] [place] [address] Referral ID Status Reason Start Date Expiration Date V isits Requested Visits Authorized [id number] Closed Auto-Generate d Referral 04/19/2022 05/19/2023 1 1 Reason Onset Date Comments CDM 04/11/2023 Routine outreach Reason Comments Results Critical INR Reason Comments Appointment Rescheduled Reason Onset Date Comments CDM 05/25/2023 Routine outreach Care Teams (unrecognized sec tion and content) Mechanical Service Specialist Relationship Specialty Start Date End Date Wes Bonilla MD [address] [place], [place] [address] PCP - General Family Practice 10/10/17 Elisabeth Canchola, hospice social workerFloor Tech 02/11/21 Junaid Arriaga [address] [address] Physician Cardiology 05/04/21 Mechanical Service Specialist Relationship Specialty Start Date End Date Wes Bonilla MD [address] [place] [address] PCP - General Family Practice 10/10/17 Elisabeth Canchola, hospice social workerFloor Tech 02/11/21 Junaid Arriaga [address] [employer] [address] [address] Physician Cardiology 05/04/21 Mechanical Service Specialist Relationship Specialty Start Date End Date Wes Bonilla MD [address] [place] [address] PCP - General Family Practice 10/10/17 Elisabeth Canchola hospice social workerFloor Tech 02/11/21 Junaid Arriaga [address] [employer] [address] [address] Physician Cardiology 05/04/21 Mechanical Service Specialist Relationship Specialty Start Date End Date Wes Bonilla MD [address] [place], [place] [phone] PCP - General Family Practice 10/10/17 Elisabeth Canchola, hospice social workerFloor Tech 02/11/21 Junaid Arriaga [address] [employer] [address] [address] Physician Cardiology 05/04/21 Nikunj Jose [address] [place] [address] Physician Urology 09/13/21 Mechanical Service Specialist Relationship Specialty Start Date End Date Wes Bonilla MD [address] [place] [address] PCP - General Family Practice 10/10/17 Elisabeth Canchola, hospice social workerFloor Tech 02/11/21 [address]una[address] Arriaga [address] [place] [address] Physician Cardiology 05/04/21 [facility] Jose [address] [place] [address] Physician Urology 09/13/21 Mechanical Service Specialist Relationship Specialty Start Date End Date Wes Bonilla MD [address] [place] [address] PCP - General Family Practice 10/10/17 Elisabeth Canchola hospice social workerFloor Tech 02/11/21 Junaid Arriaga [address] [place] [address] Physician Cardiology 05/04/21 [facility] [address] [place] [address] Physician Urology 09/13/21 Mechanical Service Specialist Relationship Specialty Start Date End Date Wes Bonilla MD [address] [place] [address] PCP - General Family Practice 10/10/17 Elisabeth Canchola, hospice social workerFloor Tech 02/11/21 Junaid Arriaga [address] [facility] [address] [place] [address] Physician Cardiology 05/04/21 Nikunj Jose [address] [place] [address] Physician Urology 09/13/21 Mechanical Service Specialist Relationship Specialty Start Date End Date Wes Bonilla MD [address] [place] [address] PCP - General Family Practice 10/10/17 Elisabeth Canchola, hospice social workerFloor Tech 02/11/21 Junaid Arriaga [address] [facility] [address] [place] [address] Physician Cardiology 05/04/21 Santos Calvin [address] [place] [address] Physician Urology 09/13/21 Mechanical Service Specialist Relationship Specialty Start Date End Date Wes Bonilla MD [address] [place] [address] PCP - General Family Practice 10/10/17 Elisabeth Canchola, hospice social workerFloor Tech 02/11/21 Junaid Arriaga [address] [facility] [address] [place] [address] Physician Cardiology 05/04/21 Santos Calvin Miguel [address] [place] [address] Physician Urology 09/13/21 Mechanical Service Specialist Relationship Specialty Start Date End Date Wes Bonilla MD [address] [place] [address] PCP - General Family Practice 10/10/17 Elisabeth Canchola RN [address] [place] [address] Floor Tech 02/11/21 Junaid Arriaga [address] [address] Physician Cardiology 05/04/[address] [address] Physician Urology 09/13/21 Mechanical Service Specialist Relationship Specialty Start Date End Date Wes Bonilla MD [address] [place] [address] PCP - General Family Practice 10/10/17 Elisabeth Canchola RN [address] [place] [address] Floor Tech 02/11/21 Junaid Arriaga [address] [address] Physician Cardiology 05/04/[address] [address] Physician Urology 09/13/21 Mechanical Service Specialist Relationship Specialty Start Date End Date Wes Bonilla MD [address] [place] [address] PCP - General Family Practice 10/10/17 Elisabeth Canchola RN [address] [place] [address] Floor Tech 02/11/21 Junaid Arriaga [address] [address] Physician Cardiology 05/04/21 Nikunj [address] [place] [address] Physician Urology 09/13/21 Mechanical Service Specialist Relationship Specialty Start Date End Date Wes Bonilla MD [address] [place] [address] PCP - General Family Practice 10/10/17 Elisabeth Canchola RN [address] [place] [address] Floor Tech 02/11/21 Junaid Arriaga [address] [place] [address] Physician Cardiology 05/04/[address] [place] [address] Physician Urology 09/13/21 Mechanical Service Specialist Relationship Specialty Start Date End Date Wes Bonilla MD [address] [place] [address] PCP - General Family Practice 10/10/17 Elisabeth Canchola, RN [address] [place] [address] Floor Tech 02/11/21 Junaid Arriaga [address] [place] [address] Physician Cardiology 05/04/21 [employer] [address] [place] [address] Physician Urology 09/13/21 Flaquito Mariee [address] [place] [address] 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 Pulmonary Disease 10/25/21 Mechanical Service Specialist Relationship Specialty Start Date End Date Wes Bonilla MD [address] [place] [address] PCP - General Family Practice 10/10/17 Elisabeth Canchola RN [address] [place] [address] Floor Tech 02/11/21 Junaid Arriaga [address] [address] Physician Cardiology 05/04/21 NikunjSantosJose [address] [address] Physician Urology 09/13/21 Flaquito Mariee [address] [place] [address] 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 Pulmonary Disease 10/25/21 Mechanical Service Specialist Relationship Specialty Start Date End Date Wes Bonilla MD [address] [place] [address] PCP - General Family Practice 10/10/17 Elisabeth Canchola RN [address] [place] [address] Floor Tech 02/11/21 Junaid Arriaga [address] [address] Physician Cardiology 05/04/21 NikunjSantosJose [address] [address] Physician Urology 09/13/21 Flaquito Mariee [address] [facility] [place] [address] 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 Pulmonary Disease 10/25/21 Mechanical Service Specialist Relationship Specialty Start Date End Date Wes Bonilla MD [address] [place] [address] PCP - General Family Practice 10/10/17 Elisabeth Canchola RN [address] [place] [address] Floor Tech 02/11/21 Junaid Arriaga [address] [address] Physician Cardiology 05/04/21 NikunjSantosJose [address] [address] Physician Urology 09/13/21 Flaquito Mariee [address] [place] [address] 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 Pulmonary Disease 10/25/21 Mechanical Service Specialist Relationship Specialty Start Date End Date Wes Bonilla MD [address] [place] [address] PCP - General Family Practice 10/10/17 Elisabeth Canchola RN [address] [place] [address] Floor Tech 02/11/21 Junaid Arriaga [address] [address] Physician Cardiology 05/04/21 NikunjSantosJose [address] [address] Physician Urology 09/13/21 Flaquito Mariee [address] [place] [address] 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 Pulmonary Disease 10/25/21 Mechanical Service Specialist Relationship Specialty Start Date End Date Wes Bonilla MD [address] [place] [address] PCP - General Family Practice 10/10/17 Elisabeth Canchola RN [address] [place] [address] Floor Tech 02/11/21 Junaid Arriaga 1761 [facility] [address] [place] [address] Physician Cardiology 05/04/21 Santos Calvin [address] [address] Physician Urology 09/13/21 Flaquito Mariee [address] [facility] [place] [address] 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 Pulmonary Disease 10/25/21 Mechanical Service Specialist Relationship Specialty Start Date End Date Wes Bonilla MD [address] [place] [address] PCP - General Family Practice 10/10/17 Elisabeth Canchola RN [address] [place] [address] Floor Tech 02/11/21 Junaid Arriaga [address] [address] Physician Cardiology 05/04/21 Santos Calvin [address] [address] Physician Urology 09/13/21 Flaquito Mariee [address] [facility] [address] [facility] [place] [address] 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 Pulmonary Disease 10/25/21 Mechanical Service Specialist Relationship Specialty Start Date End Date Wes Bonilla MD [address] [place] [address] PCP - General Family Practice 10/10/17 Elisabeth Canchola RN [address] [place], [place] 577[address]31 Floor Tech 02/11/21 Junaid Arriaga [address] [place] [address] Physician Cardiology 05/04/21 Santos Calvinuel [address] [place] [address] Physician Urology 09/13/[address]e [address] [place] [address] 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 Pulmonary Disease 10/25/21 Wes Bonilla MD [address] [place] [address] Home Care Physician Family Practice 02/03/22 Mechanical Service Specialist Relationship Specialty Start Date End Date Wes Bonilla MD [address] [place] [address] PCP - General Family Practice 10/10/17 Elisabeth Canchola RN [address] [place] [address] Floor Tech 02/11/21 Junaid Arriaga [address] [place] [address] Physician Cardiology 05/04/21 Santos Calvin Miguel [address] [place] [address] Physician Urology 09/13/[address] Mariee [address] [place] [address] 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 Pulmonary Disease 10/25/21 Wes Bonilla MD [address] [place] [address] Home Care Physician Family Practice 02/03/22 Mera Langford MD [address] [place] [address] Referring 02/04/22 Erik Hassan RN [address] [place], [place] [phone] Bow Maker Post Acute Care 02/08/22 Mechanical Service Specialist Relationship Specialty Start Date End Date Wes Bonilla MD [address] [place] [address] PCP - General Family Practice 10/10/17 Elisabeth Canchola RN [address] [place] [address] Floor Tech 02/11/21 Junaid Arriaga 1761 [facility] [address] [place] [address] Physician Cardiology 05/04/21 Santos Calvin [address] [place] [address] Physician Urology 09/13/21 Flaquito Mariee [address] [facility] [place] [address] 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 Pulmonary Disease 10/25/21 Wes Bonilla MD [address] [place] [address] Home Care Physician Family Practice 02/03/22 Mera Langford MD [address] [place], [place] [id number] Referring 02/04/22 Erik Hassan RN [address] [place], [place] [phone] Bow Maker Post Acute Care 02/08/22 Mechanical Service Specialist Relationship Specialty Start Date End Date Wes Bonilla MD [address] [place] [address] PCP - General Family Practice 10/10/17 Elisabeth Canchola, [place] [address] [place] [address] Floor Tech 02/11/[address] [place] [address] Physician Cardiology 05/04/21 Santos Calvin [address] [place] [address] [address] [place] [address] Physician Urology 09/13/21 Flaquito Mariee [address] [facility] [address] 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 Pulmonary Disease 10/25/21 Wes Bonilla MD [address] [place] [address] Home Care Physician Family Practice 02/03/22 Mera Langford MD [address] [place], [place] [phone] Referring 02/04/22 Erik Hassan RN [address] [place] [address] Bow Maker Post Acute Care 02/08/22 Mechanical Service Specialist Relationship Specialty Start Date End Date Wes Bonilla MD [address] [place] [address] PCP - General Family Practice 10/10/17 Elisabeth Canchola RN [address] [place] [address] Floor Tech 02/11/21 Junaid Arriaga [address] [place] [address] Physician Cardiology 05/04/21 Santos Calvin [address] [address] Physician Urology 09/13/21 Flaquito Mariee [address] [facility] [place] [address] 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 Pulmonary Disease 10/25/21 Wes Bonilla MD [address] [place] [address] Home Care Physician Family Practice 02/03/22 Mera Langford MD [address] [place], [place] [phone] Referring 02/04/22 Erik Hassan, [place] [address] [place] [address] Bow Maker Post Acute Care 02/08/22 Mechanical Service Specialist Relationship Specialty Start Date End Date Wes Bonilla MD [address] [place] [address] PCP - General Family Practice 10/10/17 Elisabeth Canchola RN [address] [place] [address] Floor Tech 02/11/21 Junaid Arriaga [address] [facility] [address] [place] [address] Physician Cardiology 05/04/21 Santos Calvin [address] [address] Physician Urology 09/13/21 Flaquito Mariee [address] [facility] [place] [address] 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 Pulmonary Disease 10/25/21 Wes Bonilla MD [address] [place], [place] [address] Home Care Physician Family Practice 02/03/22 Mera Langford MD [address] [place], [place] [phone] Referring 02/04/22 Erik Hassan RN [address] [place], [place] [phone] Bow Maker Post Acute Care 02/08/22 Mechanical Service Specialist Relationship Specialty Start Date End Date Wes Bonilla MD [address] [place], [place] [id number] PCP - General Family Practice 10/10/17 Elisabeth Canchola RN [address] [place], [place] 8[address]31 Floor Tech 02/11/21 Junaid Arriaga [address] [facility] [address] [place] [address] Physician Cardiology 05/04/21 Santos Calvin [address] [place] [address] Physician Urology 09/13/21 Flaquito Mariee 1761 [facility] [place] [address] 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 Pulmonary Disease 10/25/21 Wes Bonilla MD 1740 [place], [place] [id number] Home Care Physician Family Practice 02/03/22 Mera Langford MD 1 [place], [place] [phone] Referring 02/04/22 Erik Hassan RN 9161 [place], [place] [phone] Bow Maker Post Acute Care 02/08/22 Mechanical Service Specialist Relationship Specialty Start Date End Date Wes Bonilla MD 1740 [place] [address] PCP - General Family Practice 10/10/17 Elisabeth Canchola, RN 6000 [place] [address] Floor Tech 02/11/21 Junaid Arriaga [address] [facility] [address] [place] [address] Physician Cardiology 05/04/21 Santos Calvin [address] [place] [address] Physician Urology 09/13/21 Flaquito Mariee [address] [place] [address] 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 Pulmonary Disease 10/25/21 Wes Bonilla MD 1740 [place] [address] Home Care Physician Family Practice 02/03/22 Mera Langford MD 1 [place], [place] [phone] Referring 02/04/22 Erik Hassan, [place] [address] [place] [address] Bow Maker Post Acute Care 02/08/22 Mechanical Service Specialist Relationship Specialty Start Date End Date Wes Bonilla MD 1740 [place], [place] 619241 PCP - General Family Practice 10/10/17 Elisabeth Canchola RN 6000 [place] [address] Floor Tech 02/11/21 Junaid Arriaga 1761 EV[address] AV[address]aciela [facility] [address] [place] [address] Physician Cardiology 05/04/21 Santos Calvin [address] [address] Physician Urology 09/13/21 Flaquito Mariee 176 [facility] [place] [address] 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 Pulmonary Disease 10/25/21 Wes Bonilla MD 1740 [place] [address] Home Care Physician Family Practice 02/03/22 Mera Langford MD 1 [place], [place] [phone] Referring 02/04/22 Erik Hassan, [place] [address] [place] [address] Bow Maker Post Acute Care 02/08/22 Mechanical Service Specialist Relationship Specialty Start Date End Date Wes Bonilla MD 1[address] [place] [address] PCP - General Family Practice 10/10/17 Elisabeth Canchola RN 6000 [place] [address] Floor Tech 02/11/21 Junaid Arriaga 1761 [facility] [address] [place] [address] Physician Cardiology 05/04/21 Santos Calvin [address] [address] Physician Urology 09/13/21 Flaquito Mariee 176 [facility] [place] [address] 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 Pulmonary Disease 10/25/21 Wes Bonilla MD 1740 [place], [place] 480711 Home Care Physician Family Practice 02/03/22 Mera Langford MD 1 [place], [place] [phone] Referring 02/04/22 Erik Hassan RN [address] [place], [place] [phone] Bow Maker Post Acute Care 02/08/22 Mechanical Service Specialist Relationship Specialty Start Date End Date Wes Bonilla MD 174 [place], [place] 186311 PCP - General Family Practice 10/10/17 Elisabeth Canchola RN 6000 [place] [address] Floor Tech 02/11/21 Junaid Arriaga 1761 [facility] [address] [place] [address] Physician Cardiology 05/04/21 Santos Calvin [address] [place] [address] 210 [place] [address] Physician Urology 09/13/21 Flaquito Mariee 1761 [facility] [place] [address] 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 Pulmonary Disease 10/25/21 Wes Bonilla MD 7360 [place], [place] [id number] Home Care Provider Family Practice 02/03/22 Mera Langford MD 1 [place], [place] [phone] Referring 02/04/22 Erik Hassan RN 68[address] [place], [place] [phone] Bow Maker Post Acute Care 02/08/22 Mechanical Service Specialist Relationship Specialty Start Date End Date Wes Bonilla MD 1740 [place] [address] PCP - General Family Practice 10/10/17 Elisabeth Canchola RN 6000 [place] [address] Floor Tech 02/11/21 Junaid Arriaga 1761 [facility] [address] [place] [address] Physician Cardiology 05/04/21 Santos Calvin [address] [place] [address] Physician Urology 09/13/21 Flaquito Mariee 1761 [facility] [place] [address] 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 Pulmonary Disease 10/25/21 Wes Bonilla MD 2490 [place] [address] Home Care Provider Family Practice 02/03/22 Mera Langford MD 1 [place], [place] [phone] Referring 02/04/22 Erik Hassan RN 4901 [place], [place] [phone] Bow Maker Post Acute Care 02/08/22 Mechanical Service Specialist Relationship Specialty Start Date End Date Wes Bonilla MD 6980 [place], [place] 302791 PCP - General Family Practice 10/10/17 Elisabeth Canchola RN 6000 [place] [address] Floor Tech 02/11/21 Junaid Arriaga 1761 [address] AVGraciela [facility] [address] [place] [address] Physician Cardiology 05/04/21 Santos Calvin [address] [address] Physician Urology 09/13/21 Flaquito Mariee 176 [facility] [place] [address] 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 Pulmonary Disease 10/25/21 Wes Bonilla MD 1740 [place], [place] 393541 Home Care Provider Family Practice 02/03/22 Mera Langford MD 1 [place], [place] [phone] Referring 02/04/22 Erik Hassan, [place] [address] [place] [address] Bow Maker Post Acute Care 02/08/22 Mechanical Service Specialist Relationship Specialty Start Date End Date Wes Bonilla MD 1740 [place], [place] 647341 PCP - General Family Medicine 10/10/17 Elisabeth Canchola RN 6000 [place] [address] Floor Tech 02/11/21 Junaid Arriaga [address] [facility] [address] [facility] [address]A [place] [address] Physician Cardiology 05/04/21 Santos Clavin [address] [address] Physician Urology 09/13/21 Flaquito Mariee 176 [facility] [place] [address] 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 Pulmonary Disease 10/25/21 Wes Bonilla MD 1740 [place] [address] Home Care Provider Family Medicine 02/03/22 Mera Langford MD 1 [place], [place] [phone] Referring 02/04/22 Erik Hassan, [place] [address] [place] [address] Bow Maker Post Acute Care 02/08/22 Mechanical Service Specialist Relationship Specialty Start Date End Date Wes Bonilla MD 014 [place], [place] [id number] PCP - General Family Medicine 10/10/17 Elisabeth Canchola RN 6000 [place] [address] Floor Tech 02/11/21 Junaid Arriaga [address] [phone] Physician Cardiology 05/04/21 Santos Calvin [address] [place] [address] Physician Urology 09/13/21 Flaquito Mariee [address] [facility] [place] [address] 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 Pulmonary Disease 10/25/21 Wes Bonilla MD 9290 [place], [place] 42016691 Home Care Provider Family Medicine 02/03/22 Mera Langford MD 1 [place], [place] [phone] Referring 02/04/22 Erik Hassan, [place] [address] [place] [address] Bow Maker Post Acute Care 02/08/22 Mechanical Service Specialist Relationship Specialty Start Date End Date Wes Bonilla MD 1740 [place] [address] PCP - General Family Medicine 10/10/17 Elisabeth Canchola RN 6000 [place] [address] Floor Tech 02/11/21 Junaid Arriaga [address] [facility] [address] [place] [address] Physician Cardiology 05/04/21 Santos Calvin [address] [place] [address] 210 [place] [address] Physician Urology 09/13/21 Flaquito Mariee [address] [facility] [place] [address] 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 Pulmonary Disease 10/25/21 Wes Bonilla MD 1740 [place] [address] Home Care Provider Family Medicine 02/03/22 Mera Langford MD 1 [place] [address] Referring 02/04/22 Erik Hassan RN 4[address] [place], [place] [phone] Bow Maker Post Acute Care 02/08/22 Mechanical Service Specialist Relationship Specialty Start Date End Date Wes Bonilla MD 1740 [place] [address] PCP - General Family Medicine 10/10/17 Elisabeth Canchola RN 6000 [place], [place] [phone] Floor Tech 02/11/21 Junaid Arriaga 176 [facility] 3A [place] [address] Physician Cardiology 05/04/21 Santos Calvin [address] [address] Physician Urology 09/13/21 Flaquito Mariee 176 [facility] [place] [address] 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 Pulmonary Disease 10/25/21 Wes Bonilla MD 0838 [place] [address] Home Care Provider Family Medicine 02/03/22 Mera Langford MD 1 [place], [place] [phone] Referring 02/04/22 Erik Hassan, [place] [address] [place] [address] Bow Maker Post Acute Care 02/08/22 Mechanical Service Specialist Relationship Specialty Start Date End Date Wes Bonilla MD 4780 [place] [address] PCP - General Family Medicine 10/10/17 Elisabeth Canchola, RN 6000 [place], [place] [phone] Floor Tech 02/11/21 Junaid Arriaga 176 [facility] 3[address] [place] [address] Physician Cardiology 05/04/21 Santos Calvin [address] [address] Physician Urology 09/13/21 Flaquito Mariee [address] [place] [address] 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 Pulmonary Disease 10/25/21 Wes Bonilla MD 1740 [place] [address] Home Care Provider Family Medicine 02/03/22 Mera Langford MD 1 [place], [place] [phone] Referring 02/04/22 Erik Hassan, [place] [address] [place] [address] Bow Maker Post Acute Care 02/08/22 Mechanical Service Specialist Relationship Specialty Start Date End Date Wes Bonilla MD 174 [place] [address] PCP - General Family Medicine 10/10/17 Elisabeth Canchola RN 6000 [place] [address] Floor Tech 02/11/21 Junaid Arriaga [address] [facility] [address] [place] [address] Physician Cardiology 05/04/21 Santos Calvin [address] [place] [address] Physician Urology 09/13/21 Flaquito Mariee [address] [place] [address] 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 Pulmonary Disease 10/25/21 Wes Bonilla MD 1740 [place] [address] Home Care Provider Family Medicine 02/03/22 Mera Langford MD 1 [place], [place] [phone] Referring 02/04/22 Erik Hassan, [place] [address] [place], [place] [phone] Bow Maker Post Acute Care 02/08/22 Mechanical Service Specialist Relationship Specialty Start Date End Date Wes Bonilla MD 1740 [place] [address] PCP - General Family Medicine 10/10/17 Elisabeth Canchola RN 6000 [place] [address] Floor Tech 02/11/21 Junaid Arriaga 1761 [facility] [address] [place] [address] Physician Cardiology 05/04/21 Santos Calvin [address] [place] [address] 210 [place] [address] Physician Urology 09/13/21 Flaquito Mariee 1761 [facility] [place] [address] 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 Pulmonary Disease 10/25/21 Wes Bonilla MD 1740 [place] [address] Home Care Provider Family Medicine 02/03/22 Mera Langford MD 1 [place], [place] [phone] Referring 02/04/22 Erik Hassan RN 9875 [place] [address] Bow Maker Post Acute Care 02/08/22 Mechanical Service Specialist Relationship Specialty Start Date End Date Wes Bonilla MD 1740 [place] [address] PCP - General Family Medicine 10/10/17 Elisabeth Canchola RN 6000 [place] [address] Floor Tech 02/11/21 Junaid Arriaga 176 [facility] [address] [place] [address] Physician Cardiology 05/04/21 Santos Calvin [address] [address] Physician Urology 09/13/21 Flaquito Mariee 1761 [facility] [place] [address] 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 Pulmonary Disease 10/25/21 Wes Bonilla MD 1740 [place] [address] Home Care Provider Family Medicine 02/03/22 Mera Langford MD 1 [place], [place] [phone] Referring 02/04/22 Erik Hassan, [place] [address] [place] [address] Bow Maker Post Acute Care 02/08/22 Mechanical Service Specialist Relationship Specialty Start Date End Date Wes Bonilla MD 1740 [place], [place] 926561 PCP - General Family Medicine 10/10/17 Elisabeth Canchola, RN 6000 [place] [address] Floor Tech 02/11/21 Junaid Arriaga 176 [facility] [address] [place] [address] Physician Cardiology 05/04/21 Santos Calvin [address] [address] Physician Urology 09/13/21 Flaquito Mariee [address] [place] [address] 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 Pulmonary Disease 10/25/21 Wes Bonilla MD 1740 [place], [place] 049931 Home Care Provider Family Medicine 02/03/22 Mera Langford MD 1 [place], [place] [phone] Referring 02/04/22 Erik Hassan, [place] [address] [place], [place] [phone] Bow Maker Post Acute Care 02/08/22 Mechanical Service Specialist Relationship Specialty Start Date End Date Wes Bonilla MD 1740 [place], [place] [id number] PCP - General Family Medicine 10/10/17 Elisabeth Canchola, [place] 6[address] [place] [address] Floor Tech 02/11/21 Junaid Arriaga 1761 EV[address] AVGraciela [facility] [address] [place] [address] Physician Cardiology 05/04/21 Santos Calvin [address] [place] [address] 210 [place] [address] Physician Urology 09/13/21 Flaquito Mariee 1761 [place] [address] 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 Pulmonary Disease 10/25/21 Wes Bonilla MD 1740 [place] [address] Home Care Provider Family Medicine 02/03/22 Mera Langford MD 1 [place], [place] [phone] Referring 02/04/22 Mechanical Service Specialist Relationship Specialty Start Date End Date Wes Bonilla MD 1740 [place], [place] 383611 PCP - General Family Medicine 10/10/17 Elisabeth Canchola RN 6000 [place] [address] Floor Tech 02/11/21 Junaid Arriaga [address] [facility] [address] [facility] [address] [place] [address] Physician Cardiology 05/04/21 Santos Calvin [address] [place] [address] 210 [place] [address] Physician Urology 09/13/21 Flaquito Mariee [address] [facility] [address] [facility] [place] [address] 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 Pulmonary Disease 10/25/21 Wes Bonilla MD 1740 [place], [place] 398831 Home Care Provider Family Medicine 02/03/22 Mera Langford MD 1 [place], [place] [phone] Referring 02/04/22 Mechanical Service Specialist Relationship Specialty Start Date End Date Wes Bonilla MD 1740 [place] [address] PCP - General Family Medicine 10/10/17 Elisabeth Canchola RN 6000 [place] [address] Floor Tech 02/11/21 Junaid Arriaga [address] [facility] [address] [place] [address] Physician Cardiology 05/04/21 Santos Calvin [address] [address] Physician Urology 09/13/21 Flaquito Mariee 1761 [place] [address] 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 Pulmonary Disease 10/25/21 Wes Bonilla MD 1740 [place] [address] Home Care Provider Family Medicine 02/03/22 Mera Langford MD 1 [place], [place] [phone] Referring 02/04/22 Mechanical Service Specialist Relationship Specialty Start Date End Date Wes Bonilla MD 1740 [place] [address] PCP - General Family Medicine 10/10/17 Elisabeth Canchola, RN 6000 [place] [address] Floor Tech 02/11/21 Junaid Arriaga 1761 [facility] [address] [place] [address] Physician Cardiology 05/04/21 Santos Calvin [address] [address] Physician Urology 09/13/21 Flaquito Mariee 176 [place] [address] 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 Pulmonary Disease 10/25/21 Wes Bonilla MD 1740 [place] [address] Home Care Provider Family Medicine 02/03/22 Mera Langford MD 1 [place] [address] Referring 02/04/22 Mechanical Service Specialist Relationship Specialty Start Date End Date Wes Bonilla MD 1740 [place] [address] PCP - General Family Medicine 10/10/17 Elisabeth Canchola RN 6000 [place] [address] Floor Tech 02/11/21 Junaid Arriaga [address] [facility] [address] [facility] [address] [place] [address] Physician Cardiology 05/04/21 Santos Calvin [address] [place] [address] 210 [place] [address] Physician Urology 09/13/21 Flaquito Mariee [address] [facility] [address] [facility] [place] [address] 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 Pulmonary Disease 10/25/21 Wes Bonilla MD 1740 [place] [address] Home Care Provider Family Medicine 02/03/22 Mera Langford MD 1 [place] [address] Referring 02/04/22 Mechanical Service Specialist Relationship Specialty Start Date End Date Wes Bonilla MD 1740 [place] [address] PCP - General Family Medicine 10/10/17 Elisabeth Canchola RN 6000 [place] [address] Floor Tech 02/11/21 Junaid Arriaga [address] [facility] [address] [place] [address] Physician Cardiology 05/04/21 Santos Calvin [address] [address] Physician Urology 09/13/21 Flaquito Mariee 176 [place] [address] 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 Pulmonary Disease 10/25/21 Wes Bonilla MD 1740 [place] [address] Home Care Provider Family Medicine 02/03/22 Mera Langford MD 1 [place], [place] [phone] Referring 02/04/22 Mechanical Service Specialist Relationship Specialty Start Date End Date Wes Bonilla MD 1740 [place] [address] PCP - General Family Medicine 10/10/17 Elisabeth Canchola, RN 6[address] [place] [address] Floor Tech 02/11/21 Junaid Arriaga 1761 [facility] [address] [place] [address] Physician Cardiology 05/04/21 Santos Calvin [address] [address] Physician Urology 09/13/[address]quito Mariee [address] [place] [address] 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 Pulmonary Disease 10/25/21 Wes Bonilla MD 7040 [place] [address] Home Care Provider Family Medicine 02/03/22 Mera Langford MD 1 [place], [place] [phone] Referring 02/04/22 Mechanical Service Specialist Relationship Specialty Start Date End Date Wes Bonilla MD 1740 [place], [place] 944341 PCP - General Family Medicine 10/10/17 Elisabeth Canchola RN 6000 [place] [address] Floor Tech 02/11/21 Junaid Arriaga [address] [facility] [address] [place] [address] Physician Cardiology 05/04/21 Santos Calvin MD 546 [facility] 210 [place] [address] Physician Urology 09/13/21 Flaquito Mariee [address] [place] [address] 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 Pulmonary Disease 10/25/21 Wes Bonilla MD 1740 [place] [address] Home Care Provider Family Medicine 02/03/22 Mera Langford MD 1 [place], [place] [phone] Referring 02/04/22 Mechanical Service Specialist Relationship Specialty Start Date End Date Wes Bonilla MD 1740 [place], [place] 991431 PCP - General Family Medicine 10/10/17 Elisabeth Canchola RN 6000 [place] [address] Floor Tech 02/11/21 Junaid Arriaga 1761 EV[address] AVGraciela [facility] [address] [place] [address] Physician Cardiology 05/04/21 Santos Calvin MD [address] [place] [address] Physician Urology 09/13/21 Flaquito Mariee 176 [place] [address] 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 Pulmonary Disease 10/25/21 Wes Bonilla MD 1740 [place] [address] Home Care Provider Family Medicine 02/03/22 Mera Langford MD 1 [place], [place] [phone] Referring 02/04/22 Mechanical Service Specialist Relationship Specialty Start Date End Date Wes Bonilla MD 17[address] [place] [address] PCP - General Family Medicine 10/10/17 Elisabeth Canchola, RN [address] [place] [address] Floor Tech 02/11/21 Junaid Arriaga 1761 [facility] [address] [address] Physician Cardiology 05/04/21 Santos Calvin MD [address] [address] Physician Urology 09/13/21 Flaquito Mariee 1761 [facility] [place] [address] 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 Pulmonary Disease 10/25/21 Wes Bonilla MD 1740 [place] [address] Home Care Provider Family Medicine 02/03/22 Mera Langford MD 1 [place], [place] [phone] Referring 02/04/22 Mechanical Service Specialist Relationship Specialty Start Date End Date Wes Bonilla MD 1740 [place], [place] 069551 PCP - General Family Medicine 10/10/17 Elisabeth Canchola RN 6000 [place], [place] 4114031 Floor Tech 02/11/21 Junaid Arriaga [address] [facility] [address] [place] [address] Physician Cardiology 05/04/21 Santos Calvin MD [address] [address] Physician Urology 09/13/21 Flaquito Mariee 1761 [facility] [place] [address] 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 Pulmonary Disease 10/25/21 Wes Bonilla MD 1740 [place] [address] Home Care Provider Family Medicine 02/03/22 Mera Langford MD 1 [place], [place] [phone] Referring 02/04/22 Mechanical Service Specialist Relationship Specialty Start Date End Date Wes Bonilla MD 1740 [place], [place] 704091 PCP - General Family Medicine 10/10/17 Elisabeth Canchola RN 6000 [place] [address] Floor Tech 02/11/21 Junaid Arriaga [address] [facility] [address] [place] [address] Physician Cardiology 05/04/21 Santos Calvin MD [address] [place] [address] Physician Urology 09/13/[address]quito Mariee [address] [place] [address] 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 Pulmonary Disease 10/25/21 Wes Bonilla MD 1740 [place] [address] Home Care Provider Family Medicine 02/03/22 Mera Langford MD 1 [place], [place] [phone] Referring 02/04/22 Mechanical Service Specialist Relationship Specialty Start Date End Date Wes Bonilla MD 1740 [place] [address] PCP - General Family Medicine 10/10/17 Elisabeth Canchola, RN [address] [place] [phone] Floor Tech 02/11/21 Junaid Arriaga 176 [address] AVGraciela [facility] [address] [place] [address] Physician Cardiology 05/04/21 Santos Calvin MD [address] [place] [address] Physician Urology 09/13/[address]e [address] [place] [address] 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 Pulmonary Disease 10/25/21 Wes Bonilla MD 1740 [place] [address] Home Care Provider Family Medicine 02/03/22 Mera Langford MD 1 [place], [place] [phone] Referring 02/04/22 Mechanical Service Specialist Relationship Specialty Start Date End Date Wes Bonilla MD 1740 [place] [address] PCP - General Family Medicine 10/10/17 Elisabeth Canchola RN 6000 [place] [address] Floor Tech 02/11/21 Junaid Arriaga 1761 [facility] 3[address] [place] [address] Physician Cardiology 05/04/21 Santos Calvin MD [address] [place] [address] Physician Urology 09/13/21 Flaquito Mariee [address] [place] [address] 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 Pulmonary Disease 10/25/21 Wes Bonilla MD 1740 [place] [address] Home Care Provider Family Medicine 02/03/22 Mera Langford MD 1 [place], [place] [phone] Referring 02/04/22 Mechanical Service Specialist Relationship Specialty Start Date End Date Wes Bonilla MD 1740 [place] [address] PCP - General Family Medicine 10/10/17 Elisabeth Canchola RN 6000 [place] [address] Floor Tech 02/11/21 Junaid Arriaga 176 [address] AV[address]aciela [facility] [address] [place] [address] Physician Cardiology 05/04/21 Santos Calvin MD [address] [place] [address] Physician Urology 09/13/[address]quito [address]e [address] [place] [address] 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 Pulmonary Disease 10/25/21 Wes Bonilla MD 1740 [place] [address] Home Care Provider Family Medicine 02/03/22 Mera Langford MD 1 [place], [place] [phone] Referring 02/04/22 Mechanical Service Specialist Relationship Specialty Start Date End Date Wes Bonilla MD 1740 [facility], [place] 198141 PCP - General Family Medicine 10/10/17 Elisabeth Canchola, RN 6[address] [place] [address] Floor Tech 02/11/21 Junaid Arriaga 176 [address] AVGraciela [facility] [address] [place] [address] Physician Cardiology 05/04/21 Santos Calvin MD [address] [place] [address] Physician Urology 09/13/[address]quito Mariee [address] [place] [address] 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 Pulmonary Disease 10/25/21 Wes Bonilla MD 1740 [place], [place] 929961 Home Care Provider Family Medicine 02/03/22 Mera Langford MD 1 [place], [place] [phone] Referring 02/04/22 Mechanical Service Specialist Relationship Specialty Start Date End Date Wes Bonilla MD 1740 [place], [place] 624671 PCP - General Family Medicine 10/10/17 Elisabeth Canchola RN 6000 [place] [address] Floor Tech 02/11/2107/07 Junaid Arriaga 1761 [facility] 3[address] [place] [address] Physician Cardiology 05/04/21 Santos Calvin MD [address] [address] Physician Urology 09/13/21 Flaquito Mariee 1761 [facility] [place] [address] 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 Pulmonary Disease 10/25/21 Wes Bonilla MD 1740 [place], [place] 672441 Home Care Provider Family Medicine 02/03/22 Mera Langford MD 1 [place], [place] [phone] Referring 02/04/22 Erik Hassan, PEYTON [address] [place] [address] Bow Maker Post Acute Care 02/08/22 03/08/22 Michelle Rocha, hospice social workerFloor Tech 07/08/22 Mechanical Service Specialist Relationship Specialty Start Date End Date Wes Bonilla MD 1740 [facility] [place] [address] PCP - General Family Medicine 10/10/17 Junaid Arriaga [address] [place] [address] Physician Cardiology 05/04/21 Santos Calvin MD [address] [place] [address] Physician Urology 09/13/21 Flaquito Mariee [address] [place] [address] 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 Pulmonary Disease 10/25/21 Wes Bonilla MD [address] [place] [address] Home Care Provider Family Medicine 02/03/22 Mera Langford MD 1 [place], [place] [id number] Referring 02/04/22 Michelle Rocha, hospice social workerFloor Tech 07/08/22 Mechanical Service Specialist Relationship Specialty Start Date End Date Wes Bonilla MD [address] [place] [address] PCP - General Family Medicine 10/10/17 Junaid Arriaga [address] [place] [address] Physician Cardiology 05/04/21 Santos Calvin MD [address] [place] [address] Physician Urology 09/13/21 Flaquito Mariee [address] [place] [address] 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 Pulmonary Disease 10/25/21 Wes Bonilla MD [address] [facility] [place], [place] 82[address]51 Home Care Provider Family Medicine 02/03/22 Mera Langford MD 1 [place] [address] Referring 02/04/22 Michelle Rocha, hospice social workerFloor Tech 07/08/22 Mechanical Service Specialist Relationship Specialty Start Date End Date Wes Bonilla MD [address] [place] [address] PCP - General Family Medicine 10/10/17 Junaid Arriaga [address] [facility] [address] [place] [address] Physician Cardiology 05/04/21 Santos Calvin MD [address] [place] [address], [place] [address] Physician Urology 09/13/21 Flaquito Mariee 17[address] [facility] [place] [address] 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 Pulmonary Disease 10/25/21 Wes Bonilla MD 1740 [place] [address] Home Care Provider Family Medicine 02/03/22 Mera Langford MD 1 [place] [address] Referring 02/04/22 Michelle Rocha, hospice social workerFloor Tech 07/08/22 Mechanical Service Specialist Relationship Specialty Start Date End Date Wes Bonilla MD 1740 [place] [address] PCP - General Family Medicine 10/10/17 Junaid Arriaga [address] [facility] [address] [place] [address] Physician Cardiology 05/04/21 Santos Calvin MD [address] [place] [address] Physician Urology 09/13/21 Flaquito Mariee 176 [facility] [place] [address] 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 Pulmonary Disease 10/25/21 Wes Bonilla MD [address] [place] [address] Home Care Provider Family Medicine 02/03/22 Mera Langford MD 1 [place], [place] [id number] Referring 02/04/22 Michelle Rocha, hospice social workerFloor Tech 07/08/22 Mechanical Service Specialist Relationship Specialty Start Date End Date Wes Bonilla MD [address] [place] [address] PCP - General Family Medicine 10/10/17 Junaid Arriaga 17[address] [facility] [address] [place] [address] Physician Cardiology 05/04/21 Santos Calvin MD [address] [place] [address] Physician Urology 09/13/21 Flaquito Mariee 176 [facility] [place] [address] 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 Pulmonary Disease 10/25/21 Wes Bonilla MD [address] [place] [address] Home Care Provider Family Medicine 02/03/22 Mera Langford MD 1 [place] [address] Referring 02/04/22 Michelle Rocha, hospice social workerFloor Tech 07/08/22 Mechanical Service Specialist Relationship Specialty Start Date End Date Wes Bonilla MD [address] [facility] [place], [place] [address] PCP - General Family Medicine 10/10/17 Junaid Arriaga [address] [facility] [address] [place] [address] Physician Cardiology 05/04/21 Santos aClvin MD [address] [place] [address] Physician Urology 09/13/21 Flaquito Mariee [address] [facility] [place] [address] 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 Pulmonary Disease 10/25/21 Wes Bonilla MD [address] [place] [address] Home Care Provider Family Medicine 02/03/22 Mera Langford MD 1 [place] [address] Referring 02/04/22 Michelle Rocha, hospice social workerFloor Tech 07/08/22 Mechanical Service Specialist Relationship Specialty Start Date End Date Wes Bonilla MD [address] [place] [address] PCP - General Family Medicine 10/10/17 Junaid Arriaga [address] [facility] [address] [place] [address] Physician Cardiology 05/04/21 Santos Calvin MD [address], [place] 60[address]41 Physician Urology 09/13/21 Flaquito Mariee [address] [facility] [place] [address] 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 Pulmonary Disease 10/25/21 Wes Bonilla MD [address] [place] [address] Home Care Provider Family Medicine 02/03/22 Mera Langford MD 1 [place], [place] [phone] Referring 02/04/22 Michelle Rocha, hospice social workerFloor Tech 07/08/22 Mechanical Service Specialist Relationship Specialty Start Date End Date Wes Bonilla MD [address]40 [place] [address] PCP - General Family Medicine 10/10/17 Junaid Arriaga [address] [facility] [address] [place] [address] Physician Cardiology 05/04/21 Santos Calvin MD [address] [address] Physician Urology 09/13/21 Flaquito Mariee [address] [facility] [place] [address] 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 Pulmonary Disease 10/25/21 Wes Bonilla MD [address] [place] [address] Home Care Provider Family Medicine 02/03/22 Mera Langford MD 1 [place], [place] [id number] Referring 02/04/22 Michelle Rocha, hospice social workerFloor Tech 07/08/22 Mechanical Service Specialist Relationship Specialty Start Date End Date Wes Bonilla MD [address] [place] [address] PCP - General Family Medicine 10/10/17 Junaid Arriaga [address] [place] [address] Physician Cardiology 05/04/21 Santos Calvin MD [address] [place] [address] [place] [address] Physician Urology 09/13/21 Flaquito Mariee [address] [place] [address] 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 Pulmonary Disease 10/25/21 Wes Bonilla MD [address] [place] [address] Home Care Provider Family Medicine 02/03/22 Mera Langford MD 1 [place], [place] [phone] Referring 02/04/22 Michelle Rocha, hospice social workerFloor Tech 07/08/22 Mechanical Service Specialist Relationship Specialty Start Date End Date Wes Bonilla MD [address] [place] [address] PCP - General Family Medicine 10/10/17 Junaid Arriaga [address] [place] [address] Physician Cardiology 05/04/21 Santos Calvin MD [address] [place] [address] Physician Urology 09/13/21 Flaquito Mariee [address] [place] [address] 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 Pulmonary Disease 10/25/21 Wes Bonilla MD 1740 [place] [address] Home Care Provider Family Medicine 02/03/22 Mear Langford MD 1 [place] [address] Referring 02/04/22 Michelle Rocha, hospice social workerFloor Tech 07/08/22 Mechanical Service Specialist Relationship Specialty Start Date End Date Wes Bonilla MD [address]40 [place] [address] PCP - General Family Medicine 10/10/17 Junaid Arriaga [address] [place] [address] Physician Cardiology 05/04/21 Santos Calvin MD [address] [address] Physician Urology 09/13/21 Flaquito Mariee [address] [facility] [place] [address] 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 Pulmonary Disease 10/25/21 Wes Bonilla MD 1740 [place] [address] Home Care Provider Family Medicine 02/03/22 Mera Langford MD 1 [place] [address] Referring 02/04/22 Michelle Rocha, hospice social workerFloor Tech 07/08/22 Mechanical Service Specialist Relationship Specialty Start Date End Date Wes Bonilla MD 1740 [place] [address] PCP - General Family Medicine 10/10/17 Junaid Arriaga [address] [place] [address] Physician Cardiology 05/04/21 Santos Calvin MD [address] [place] [address] [place] [address] Physician Urology 09/13/21 Flaquito Mariee [address] [place] [address] 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 Pulmonary Disease 10/25/21 Wes Bonilla MD [address] [place] [address] Home Care Provider Family Medicine 02/03/22 Mera Langford MD 1 [place], [place] [id number] Referring 02/04/22 Michelle Rocha, hospice social workerFloor Tech 07/08/22 Mechanical Service Specialist Relationship Specialty Start Date End Date Wes Bonilla MD [address] [place] [address] PCP - General Family Medicine 10/10/17 Junaid Arriaga [address] [place] [address] Physician Cardiology 05/04/21 Santos Calvin MD [address] [place] [address] Physician Urology 09/13/21 Flaquito Mariee [address] [address] 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 Pulmonary Disease 10/25/21 Wes Bonilla MD [address] [place] [address] Home Care Provider Family Medicine 02/03/22 Mera Langford MD 1 [place] [address] Referring 02/04/22 Michelle Rocha, hospice social workerFloor Tech 07/08/22 Mechanical Service Specialist Relationship Specialty Start Date End Date Wes Bonilla MD [address] [facility] [place], [place] 23[address]91 PCP - General Family Medicine 10/10/17 Junaid Arriaga [address] [place] [address] Physician Cardiology 05/04/21 Santos Calvin MD [address] [place] [address] Physician Urology 09/13/21 Flaquito Mariee [address] [place] [address] 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 Pulmonary Disease 10/25/21 Wes Bonilla MD [address] [place] [address] Home Care Provider Family Medicine 02/03/22 Mera Langford MD 1 [place] [address] Referring 02/04/22 Michelle Rocha, hospice social workerFloor Tech 07/08/22 Mechanical Service Specialist Relationship Specialty Start Date End Date Wes Bonilla MD [address] [place] [address] PCP - General Family Medicine 10/10/17 Junaid Arriaga [address] [place] [address] Physician Cardiology 05/04/21 Santos Calvin MD [address] [place] [address] Physician Urology 09/13/21 Flaquito Mariee [address] [place] [address] 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 Pulmonary Disease 10/25/21 Wes Bonilla MD 1740 [place] [address] Home Care Provider Family Medicine 02/03/22 Mera Langford MD 1 [place] [address] Referring 02/04/22 Michelle Rocha, hospice social workerFloor Tech 07/08/22 Mechanical Service Specialist Relationship Specialty Start Date End Date Wes Bonilla MD [address]40 [place] [address] PCP - General Family Medicine 10/10/17 Junaid Arriaga [address] [place] [address] Physician Cardiology 05/04/21 Santos Calvin MD [address] [place] [address] Physician Urology 09/13/21 Flaquito Mariee [address] [place] [address] 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 Pulmonary Disease 10/25/21 Wes Bonilla MD 1740 [place] [address] Home Care Provider Family Medicine 02/03/22 Mera Langford MD 1 [place] [address] Referring 02/04/22 Jolene Osuna, hospice social workerFloor Tech 12/20/22 Mechanical Service Specialist Relationship Specialty Start Date End Date Wes Bonilla MD [address]40 [place], [place] 458171 PCP - General Family Medicine 10/10/17 Junaid Arriaga 176 [facility] [address] [place] [address] Physician Cardiology 05/04/21 Santos Calvin MD [address] [place] [address] Physician Urology 09/13/21 Flaquito Mariee [address]61 [place] [address] 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 Pulmonary Disease 10/25/21 Wes Bonilla MD [address]40 [place], [place] 835361 Home Care Provider Family Medicine 02/03/22 Mera Langford MD 1 [place] [address] Referring 02/04/22 Jolene Osuna, hospice social workerFloor Tech 12/20/22 Mechanical Service Specialist Relationship Specialty Start Date End Date Wes Bonilla MD [address]40 [place], [place] 054771 PCP - General Family Medicine 10/10/17 Junaid Arriaga [address] [address] Physician Cardiology 05/04/21 Santos Calvin MD [address] 836[address] Physician Urology 09/13/21 Flaquito Mariee [address] [place] [address] 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 Pulmonary Disease 10/25/21 Wes Bonilla MD 1740 [place], [place] 17642691 Home Care Provider Family Medicine 02/03/22 Mera Langford MD 1 [place], [place] [phone] Referring 02/04/22 Jolene Osuna, hospice social workerFloor Tech 12/20/22 Mechanical Service Specialist Relationship Specialty Start Date End Date Wes Bonilla MD [address]40 [place], [place] 791631 PCP - General Family Medicine 10/10/17 Junaid Arriaga [address] [address] Physician Cardiology 05/04/21 Santos Calvin MD [address] [id number] Physician Urology 09/13/21 Flaquito Mariee [address] [place] 6[address] 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 Pulmonary Disease 10/25/21 Wes Bonilla MD [address]40 [place], [place] 277691 Home Care Provider Family Medicine 02/03/22 Mera Langford MD 1 [place], [place] [phone] Referring 02/04/22 Jolene Osuna, hospice social workerFloor Tech 12/20/22 Mechanical Service Specialist Relationship Specialty Start Date End Date Wes Bonilla MD 1740 [place], [place] 143511 PCP - General Family Medicine 10/10/17 Junaid Arriaga 1761 [facility] DARLENE [address] [address] Physician Cardiology 05/04/21 Santos Calvin MD [address] [id number] Physician Urology 09/13/21 Flaquito Mariee MD [address]61 [place] [address] 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 Pulmonary Disease 10/25/21 Wes Bonilla MD 1740 [place], [place] 27149691 Home Care Provider Family Medicine 02/03/22 Mera Langford MD 1 [place], [place] [phone] Referring 02/04/22 Jolene Osuna RN Floor Tech 12/20/22 Mechanical Service Specialist Relationship Specialty Start Date End Date Wes Bonilla MD [address] [place] [address] PCP - General Family Medicine 10/10/17 Junaid Arriaga 176 [facility] [address] [place] [address] Physician Cardiology 05/04/21 Santos Calvin MD [address] [address] Physician Urology 09/13/21 Flaquito Mariee MD 176 [facility] [place] [address] 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 Pulmonary Disease 10/25/21 Wes Bonilla MD 174 [place] [address] Home Care Provider Family Medicine 02/03/22 Mera Langford MD 1 [place] [address] Referring 02/04/22 Jolene Osuna, hospice social workerFloor Tech 12/20/22 Mechanical Service Specialist Relationship Specialty Start Date End Date Wes Bonilla MD 174 [place] [address] PCP - General Family Medicine 10/10/17 Junaid Arriaga [address] [phone] Physician Cardiology 05/04/21 Santos Calvin MD [address] [address] Physician Urology 09/13/21 Flaquito Mariee MD [address] [place] [address] 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 Pulmonary Disease 10/25/21 Wes Bonilla MD 174 [place] [address] Home Care Provider Family Medicine 02/03/22 Mera Langford MD 1 [place] [address] Referring 02/04/22 Jolene Osuna hospice social workerFloor Tech 12/20/22 Mechanical Service Specialist Relationship Specialty Start Date End Date Wes Bonilla MD 174 [place], [place] 668791 PCP - General Family Medicine 10/10/17 Junaid Arriaga 176 [facility] [address] [phone] Physician Cardiology 05/04/21 Santos Calvin MD [address] [address] Physician Urology 09/13/21 Flaquito Mariee MD [address] [place] [address] 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 Pulmonary Disease 10/25/21 Wes Bonilla MD 1740 [place], [place] 875281 Home Care Provider Family Medicine 02/03/22 Mera Langford MD 1 [place], [place] [phone] Referring 02/04/22 Jolene Osuna, hospice social workerFloor Tech 12/20/22 Mechanical Service Specialist Relationship Specialty Start Date End Date Wes Bonilla MD 1740 [place], [place] 178231 PCP - General Family Medicine 10/10/17 Junaid Arriaga [address] [phone] Physician Cardiology 05/04/21 Santos Calvin MD [address] [place] [address] Physician Urology 09/13/21 Flaquito Mariee MD [address]61 [place] [address] 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 Pulmonary Disease 10/25/21 Wes Bonilla MD 174 [place], [place] 735041 Home Care Provider Family Medicine 02/03/22 Mera Langford MD 1 [place], [place] [phone] Referring 02/04/22 Jolene Osuna, hospice social workerFloor Tech 12/20/22 Mechanical Service Specialist Relationship Specialty Start Date End Date Wes Bonilla MD 1740 [place], [place] 686191 PCP - General Family Medicine 10/10/17 Junaid Arriaga 1761 [facility] [address] [place] [address] Physician Cardiology 05/04/21 Santos Calvin MD [address] 745[address] Physician Urology 09/13/21 Flaquito Mariee MD [address]61 [facility] [place] [address] 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 Pulmonary Disease 10/25/21 Wes Bonlila MD 1740 [place] [address] Home Care Provider Family Medicine 02/03/22 Mera [place] MD 1 [place] [address] Referring 02/04/22 Jolene Osuna, hospice social workerFloor Tech 12/20/22 Mechanical Service Specialist Relationship Specialty Start Date End Date Wes Bonilla MD 1740 [place] [address] PCP - General Family Medicine 10/10/17 Junaid Arriaga 1761 [facility] [address] [place] [address] Physician Cardiology 05/04/21 Santos Calvin MD [address] [address] Physician Urology 09/13/21 Flaquito Mariee MD 1761 [facility] [place] [address] 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 Pulmonary Disease 10/25/21 Wes Bonilla MD 1740 [place], [place] 593641 Home Care Provider Family Medicine 02/03/22 Mera Langford MD 1 [place] [address] Referring 02/04/22 Jolene Osuna, hospice social workerFloor Tech 12/20/22 Mechanical Service Specialist Relationship Specialty Start Date End Date Wes Bonilla MD 174 [place], [place] 943411 PCP - General Family Medicine 10/10/17 Junaid Arriaga [address] [phone] Physician Cardiology 05/04/21 Santos Calvin MD [address] [place] [address] 708371 Physician Urology 09/13/21 Flaquito Mariee MD 1761 [facility] [place] [address] 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 Pulmonary Disease 10/25/21 Wes Bonilla MD [address]40 [place] [address] Home Care Provider Family Medicine 02/03/22 Mera Langford MD 1 [place] [address] Referring 02/04/22 Jolene Osuna, hospice social workerFloor Tech 12/20/22 Mechanical Service Specialist Relationship Specialty Start Date End Date Wes Bonilla MD 1740 [place], [place] 426131 PCP - General Family Medicine 10/10/17 Junaid Arriaga [address] [address] Physician Cardiology 05/04/21 Santos Calvin MD [address] [place] [address] Physician Urology 09/13/21 [place] [address] [place] [address] 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 Pulmonary Disease 10/25/21 Wes Bonilla MD 174 [place], [place] 584781 Home Care Provider Family Medicine 02/03/22 Mera Langford MD 1 [place] [address] Referring 02/04/22 Michelle Rocha, hospice social workerFloor Tech 07/08/22 3 Mechanical Service Specialist Relationship Specialty Start Date End Date Wes Bonilla MD 174 [place], [place] 185781 PCP - General Family Medicine 10/10/17 Junaid Arriaga [address] [place] [address] Physician Cardiology 05/04/21 Santos Calvin MD [address] [address] Physician Urology 09/13/21 Flaquito Mariee MD 176 [facility] [place] [address] 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 Pulmonary Disease 10/25/21 Wes Bonilla MD 174 [place] [address] Home Care Provider Family Medicine 02/03/22 Mera Langford MD 1 [place] [address] Referring 02/04/22 Michelle Rocha, hospice social workerFloor Tech 07/08/22 3 Mechanical Service Specialist Relationship Specialty Start Date End Date Wes Bonilla MD 1740 [place], [place] 269301 PCP - General Family Medicine 10/10/17 Junaid Arriaga 176 [facility] [address] [phone] Physician Cardiology 05/04/21 Santos Calvin MD [address] [address] Physician Urology 09/13/21 Flaquito Mariee MD 176 [facility] [place] [address] 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 Pulmonary Disease 10/25/21 Wes Bonilla MD 174 [place], [place] 70699691 Home Care Provider Family Medicine 02/03/22 Mera [place] MD 1 [place] [address] Referring 02/04/22 Michelle Rocha RN Floor Tech 07/08/22 3 Mechanical Service Specialist Relationship Specialty Start Date End Date Wes Bonilla MD 174 [place], [place] 39992691 PCP - General Family Medicine 10/10/17 Elisabeth Canchola RN [address] [place] [address] Floor Tech 02/11/2107/07 Junaid Arriaga 176 [facility] [address] [place] [address] Physician Cardiology 05/04/21 Santos Calvin MD [address] [place] [address] 210 [place], [place] 526371 Physician Urology 09/13/21 Flaquito Mariee MD 176 [facility] [place], [place] 357101 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 Pulmonary Disease 10/25/21 Wes Bonilla MD 174 [place], [place] 17927691 Home Care Provider Family Medicine 02/03/22 Mera Langford MD 1 [place], [place] [phone] Referring 02/04/22 Mechanical Service Specialist Relationship Specialty Start Date End Date Wes Bonilla MD 1740 [place], [place] 177491 PCP - General Family Medicine 10/10/17 Junaid Arriaga MD [address] [facility] [address] [place] [address] Physician Cardiology 05/04/21 Santos Calvin MD [address] [place] [address] Physician Urology 09/13/21 Flaquito Mariee MD 1761 [facility] [place] [address] 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 Pulmonary Disease 10/25/21 Wes Bonilla MD 174 [place] [address] Home Care Provider Family Medicine 02/03/22 Mera Langford MD 1 [place] [address] Referring 02/04/22 Jolene Osuna, hospice social workerFloor Tech 12/20/22 Mechanical Service Specialist Relationship Specialty Start Date End Date Wes Bonilla MD 1740 [place] [address] PCP - General Family Medicine 10/10/17 Junaid Arriaga MD [address] [address] Physician Cardiology 05/04/21 Santos Calvin MD [address] [address] Physician Urology 09/13/21 Flaquito Mariee MD [address] [place], [place] 636611 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 Pulmonary Disease 10/25/21 Wes Boinlla MD 1740 [place] [address] Home Care Provider Family Medicine 02/03/22 Mera Langford MD 1 [place] [address] Referring 02/04/22 Jolene Osuna, hospice social workerFloor Tech 12/20/22 Mechanical Service Specialist Relationship Specialty Start Date End Date Wes Bonilla MD [address]40 [place], [place] 047971 PCP - General Family Medicine 10/10/17 Junaid Arriaga MD [address] [address] Physician Cardiology 05/04/21 Santos Calvin MD [address] [address] Physician Urology 09/13/21 Flaquito Mariee MD [address] [place], [place] 891621 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 Pulmonary Disease 10/25/21 Wes Bonilla MD 1740 [place], [place] 903111 Home Care Provider Family Medicine 02/03/22 Mera Langford MD 1 [place], [place] [id number] Referring 02/04/22 Jolene Osuna, hospice social workerFloor Tech 12/20/22 Mechanical Service Specialist Relationship Specialty Start Date End Date Wes Bonilla MD 1740 [place], [place] 146681 PCP - General Family Medicine 10/10/17 Junaid Arriaga MD [address] [address] Physician Cardiology 05/04/21 Santos Calvin MD [address] [address] Physician Urology 09/13/21 Flaquito Mariee MD 1761 [place] [address] 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 Pulmonary Disease 10/25/21 Wes Bonilla MD 1740 [place], [place] 490041 Home Care Provider Family Medicine 02/03/22 Mera Langford MD 1 [place], [place] [phone] Referring 02/04/22 Jolene Osuna RN Floor Tech 12/20/22 Mechanical Service Specialist Relationship Specialty Start Date End Date Wes Bonilla MD [address] [place] [address] PCP - General Family Medicine 10/10/17 Junaid Arriaga MD [address] [place] [address] Physician Cardiology 05/04/21 Santos Calvin MD [address] [place] [address] Physician Urology 09/13/21 Flaquito Mariee MD [address] [place] [address] 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 Pulmonary Disease 10/25/21 Wes Bonilla MD 174 [place] [address] Home Care Provider Family Medicine 02/03/22 Mera [place] MD 1 [place] [address] Referring 02/04/22 Jolene Osuna, hospice social workerFloor Tech 12/20/22 Mechanical Service Specialist Relationship Specialty Start Date End Date Wes Bonilla MD 174 [place] [address] PCP - General Family Medicine 10/10/17 Junaid Arriaga MD [address] [place] [address] Physician Cardiology 05/04/21 Santos Calvin MD [address] [address] Physician Urology 09/13/21 Flaquito Mariee MD [address] [place] [address] 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 Pulmonary Disease 10/25/21 Wes Bonilla MD [address] [place] [address] Home Care Provider Family Medicine 02/03/22 Mera Langford MD [address] [place] [address] Referring 02/04/22 Jolene Osuna RN Floor Tech 12/20/22 Mechanical Service Specialist Relationship Specialty Start Date End Date Wes Bonilla MD [address] [place], [place] [id number] PCP - General Family Medicine 10/10/17 J[facility]id [facility]aga MD [facility] [address] [address] Physician Cardiology 05/04/21 Santos Calvin MD [address] [address] Physician Urology 09/13/21 Flaquito Mariee MD [address] [place] [address] 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 Pulmonary Disease 10/25/21 Wes Bonilla MD [address] [place] [address] Home Care Provider Family Medicine 02/03/22 Mera Langford MD [address] [place] [address] Referring 02/04/22 Jolene Osuna, hospice social workerFloor Tech 12/20/22 Mechanical Service Specialist Relationship Specialty Start Date End Date Wes Bonilla MD [address] [place], [place] [id number] PCP - General Family Medicine 10/10/17 Junaid Arriaga MD [address] [id number] Physician Cardiology 05/04/21 Santos Calvin MD [address] [place] [id number] Physician Urology 09/13/21 Flaquito Mariee MD [address] [place], [place] [address] 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 [facility]. provides no warranty or guarantee of the accuracy or completeness of information in this document.
== END | disposition home or self-care (01) ==
LOC: LABSPEC 11:19
PROVIDERS: PCP Family Medicine; Referring Provider Surgery; Visit Provider Surgery
DX: E04.1 Nontoxic single thyroid nodule (principal)
CPT/HCPCS: 88161; 88313

== ENCOUNTER → 2023-12-08 | Outpatient (CLI) | payer MEDICARE, MEDICAID, SELFPAY ==
--- NOTE | 2023-12-08 13:23 | ECHOD_ITS ---
Reason For Study: Murmur Procedure This was a 2D Doppler, Color Flow transthoracic echocardiogram. Technically difficult study due to patient body habitus. Exam performed in department. Left Ventricle Normal LV size. Left ventricular systolic function is normal. The left ventricular ejection fraction is 60 %. No regional wall motion abnormalities noted. Right Ventricle Normal RV size. Normal systolic function. Atria The left atrium is moderately enlarged. Normal right atrium. Mitral Valve There is mild to moderate mitral annular calcification. Mild-Moderate (1-2+) anteriorly directed mitral valve insufficiency. Tricuspid Valve Normal tricuspid valve. Moderate (2+) tricuspid valve insufficiency. Pulmonary artery systolic pressure is 80 mmHg. Severe pulmonary hypertension. Aortic Valve Trisinus/trileaflet aortic valve. Mild (1+) aortic valve insufficiency. Great Vessels Mildly dilated aortic root. Calcified aortic root. The ascending aorta is mildly dilated. The pulmonary artery is normal size. Inferior vena cava collapse with respiration. MMode/2D Measurements & Calculations LVIDd: 3.5 cm IVSd: 1.1 cm Ao root diam: 3.9 cm LVIDs: 2.2 cm LVPWd: 1.1 cm LA dimension: 4.0 cm RVDd: 5.2 cm FS: 36.3 % LAV(MOD-bp): 89.1 ml LA A4 area: 26.6 cm2 LAV(MOD-bp) Indexed: 57.6 ml/m2 LAV(MOD-sp2): 83.1 ml LAV(MOD-sp4): 87.6 ml Time Measurements MV dec time: 0.15 sec Doppler Measurements & Calculations MV E max jackson: 136.5 cm/sec Lat Peak E' Jackson: 6.6 cm/sec Med Peak E' Jackson: 5.7 cm/sec MV A max jackson: 66.7 cm/sec E/E' lat: 20.8 E/E' med: 23.9 MV E/A: 2.0 MV V2 max: 180.3 cm/sec MV P1/2t max jackson: 180.1 cm/sec Ao V2 max: 106.8 cm/sec MV max P.0 mmHg MV P1/2t: 57.7 msec Ao max P.6 mmHg MV V2 mean: 69.6 cm/sec Ao V2 mean: 76.0 cm/sec MV mean P.6 mmHg MV dec slope: 913.6 cm/sec2 Ao mean P.6 mmHg MV V2 VTI: 39.8 cm MVA(P1/2t): 3.8 cm2 Ao V2 VTI: 30.8 cm AV (velocity ratio): 0.72 AI max jackson: 434.6 cm/sec LV V1 max: 77.3 cm/sec MR max jackson: 581.5 cm/sec AI max P.6 mmHg LV V1 max P.4 mmHg MR max P.0 mmHg AI dec slope: 200.0 cm/sec2 LV V1 mean P.4 mmHg MR mean jackson: 458.2 cm/sec AI P1/2t: 636.4 msec LV V1 mean: 54.3 cm/sec MR mean P.3 mmHg LV V1 VTI: 22.3 cm MR VTI: 229.0 cm PA V2 max: 87.4 cm/sec TR max jackson: 429.7 cm/sec PA max PG (full): 1.2 mmHg TR max P.9 mmHg PA V2 mean: 61.2 cm/sec PA mean PG (full): 0.53 mmHg ECHO/Echo Complete Interpretation Summary Normal LV size. Left ventricular systolic function is normal. The left ventricular ejection fraction is 60 %. Mild-Moderate (1-2+) anteriorly directed mitral valve insufficiency. Pulmonary artery systolic pressure is 80 mmHg. Severe pulmonary hypertension. Ordering Physician: Yanely Camejo Referring Physician: Yanely Camejo Performed By: Pablo eHrzog RCS
== END | disposition home or self-care (01) ==
PROVIDERS: PCP Family Medicine; Referring Provider Physician Assistant Medical; Visit Provider Physician Assistant Medical
DX: R06.02 Shortness of breath (principal); I34.0 Nonrheumatic mitral (valve) insufficiency
CPT/HCPCS: 93306

== ENCOUNTER → 2024-04-04 | Outpatient (CLI) | payer MEDICARE, MEDICAID, SELFPAY ==
--- NOTE | 2024-04-04 14:31 | CT_ITS ---
STUDY: CTA CHEST REASON FOR EXAM: Female, 78 years old. abnormal echo. History of Marfan''s. RADIATION DOSAGE (If Supplied By Facility): CTDIvol = ( 9.92 ) mGy, DLP = ( 279.70 ) mGycm TECHNIQUE: The examination was performed with the intravenous administration of IV 100mL Isovue-370. Post-processing of the angiographic images was performed, with multiplanar reformation and 3D reconstruction. Individualized dose optimization techniques were used for this CT. COMPARISON: Comparison is made with prior study January 26, 2022. FINDINGS: There is prominence of the main pulmonary artery and proximal portions of the right and left pulmonary arteries. There is aneurysmal dilatation of the ascending aorta. The transverse diameter of the ascending aorta measures 43.5 mm''s. There is no demonstrated aortic dissection. There are calcifications of the coronary arteries. Normal mediastinum. Normal hilar regions. Normal visualized trachea and bronchi. The lungs are well expanded. Mild increased markings at the lung bases suggestive of either scarring and/or atelectasis. Small right pleural effusion. Normal pleura. Normal chest wall structures. Increased kyphosis. Almost complete collapse of the lower dorsal vertebrae. There is a 1 cm hypodense nodule in the posterior-lateral aspect of the upper aspect of the right lobe of the liver. CT/CTA Chest W/WO Contrast IMPRESSION: Dilated loops of the ascending thoracic aorta. Enlarged central pulmonary arteries as described. Stable 4 mm noncalcified nodule in the left lower lobe. Twelve-month follow-up recommended. Electronically Signed: Shashi Jacobo MD at 14:31 EDT ,
[2024-04-04 14:53] LABS: CREATININE FINGERSTICK < 1.0 mg/dL (0.55-1.02)
== END | disposition home or self-care (01) ==
LOC: CT 14:28
PROVIDERS: PCP Family Medicine; Referring Provider Physician Assistant Medical; Visit Provider Physician Assistant Medical
DX: R06.02 Shortness of breath (principal)
CPT/HCPCS: 71275; Q9967

== ENCOUNTER → 2024-07-16 | Outpatient (CLI) | payer MEDICARE, MEDICAID, SELFPAY ==
--- NOTE | 2024-07-16 16:15 | US_ITS ---
PROCEDURE: THYROID REASON FOR EXAM: History of thyroid nodules and goiter. TECHNIQUE: Thyroid ultrasound COMPARISON: June 15, 2023. FINDINGS: Right thyroid lobe measures 4.1 cm x 1.6 cm x 1.5 cm. Left thyroid lobe is enlarged and measures 5.6 cm x 1.4 cm x 1.8 cm. Isthmus thickness is2 mm. Thyroid Size: Enlarged left lobe of the thyroid. Background Echotexture: Heterogeneous multinodular Thyroid Nodules: There are 2 subcentimeter hypoechoic nodules in the lateral superior aspect of the right lobe as well as in the medial inferior aspect of the right lobe. No increased vascularity is seen. This suggestive of goiters changes. Stable multiple complex nodules in the left lobe. The largest is in the medial inferior aspect measuring 2.1 cm x 1.2 cm x 1.3 cm. There was evidence of prior biopsy. US/Thyroid IMPRESSION: Multiple nodules in an enlarged heterogeneous left lobe of the thyroid with dom inant nodule in the medial inferior aspect of the left lobe. Biopsy was performed previously. Reading Location: [place] [address]
== END | disposition home or self-care (01) ==
LOC: US 16:11
PROVIDERS: PCP Family Medicine; Referring Provider Surgery; Visit Provider Surgery
DX: E04.9 Nontoxic goiter, unspecified (principal)
CPT/HCPCS: 76536

== ENCOUNTER → 2024-12-20 | Outpatient (CLI) | payer MEDICARE, MEDICAID, SELFPAY ==
--- NOTE | 2024-12-20 11:45 | RAD_ITS ---
PROCEDURE: CHEST PA AND LATERAL 12/20/2024 REASON FOR EXAM: AMIODARONE THERAPY TECHNIQUE: CHEST PA AND LATERAL COMPARISON: Chest x-ray dated 04/04/2022 and 01/28/2022. A CTA of the chest dated 04/04/2024 was also reviewed. FINDINGS: Hardware: None Heart: Heart is upper limits of normal in size. Mediastinum: Arteriosclerotic vascular disease and a tortuous ectatic aorta is noted. The aortic arch measures 3.7 cm. Pulmonary vasculature appears minimally prominent centrally and similar when compared to the prior study. Lungs: Chronic interstitial markings are noted in both lungs likely related to parenchymal scarring. The previously noted right pleural effusion has resolved. There are no pleural effusions or pneumonic infiltrates. There are no pneumothoraces. Bones: Diffuse osteopenia of the bony thorax is seen. There is a levoscoliosis of the lower cervical upper thoracic spine. There is increased kyphotic curvature of the thoracic spine. There is a decrease in height of 2 of the lower thoracic vertebral bodies. 1 is new and 1 is slightly worse when compared to the prior exam dated 04/04/2022. These are most likely related to osteoporotic compression fractures. Degenerative changes of both shoulders are noted. RAD/Chest PA and Lateral IMPRESSION: No acute cardiopulmonary process is identified radiographically. Reading Location: [id number]
== END | disposition home or self-care (01) ==
LOC: PSN 10:40
PROVIDERS: PCP Family Medicine; Referring Provider Nurse Practitioner Gerontology; Visit Provider Nurse Practitioner Gerontology
DX: Z79.899 Other long term (current) 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 (principal)
CPT/HCPCS: 71046; 94060; 94726; 94729

== ENCOUNTER → 2024-12-20 | Outpatient (CLI) | payer MEDICARE, MEDICAID, SELFPAY ==
[2024-12-20 12:51] LABS: Hematocrit 42.4 % (37-47); Hemoglobin 14.0 g/dL (12.0-15.0); Immature Granulocytes Count 0.030 X10^3/uL (0.0-0.0); Mean Corp Hgb Conc 33.0 g/dL (32-36); Mean Corpuscular Volume 88.1 fL (81-99); Mean Platelet Vol. 8.9 fl (6.2-12.0); NRBC Flagged by Analyzer 0 % (0-5); Platelet Count 289 K/mm3 (150-450); RBC Distribution Width CV 14.3 % (11.6-14.6); RBC Distribution Width SD 46.3 fl (35.1-43.9); Red Blood Count 4.81 M/mm3 (4.2-5.4); White Blood Count 7.2 K/mm3 (4.4-11.0)
[2024-12-20 13:40] LABS: AST(SGOT) 21 U/L (<=31); Alanine Aminotransfer ALT/SGPT 17 U/L (<=34); Albumin, Serum 4.2 g/dL (3.4-4.8); Alkaline Phosphatase 133 U/L (35-104); Anion Gap 10 (5-15); BUN 15 mg/dL (4-19); BUN/Creat Ratio 16.8 RATIO (10-20); Calcium,Total 9.2 mg/dL (7.6-11.0); Carbon Dioxide 27.6 mmol/L (21.0-32.0); Chloride 99 mmol/L (98-108); Ferritin 35 ng/mL (22-378); Globulin 3.3 g/dL (2.2-4.2); Glucose 112 mg/dL (70-99); Iron 58 ug/dL (50-170); Iron Binding Capacity,Total 393 ug/dL (250-450); Iron Binding Capacity,Unsat 335 ug/dL (228-428); Magnesium 2.2 mg/dL (1.5-2.2); Potassium 3.7 mmol/L (3.3-5.1); Vitamin B12 381 pg/mL (180-914)
== END | disposition home or self-care (01) ==
PROVIDERS: Nurse Practitioner Gerontology; PCP Family Medicine; Referring Provider Clinical Nurse Specialist Adult Health; Visit Provider Clinical Nurse Specialist Adult Health
DX: M06.9 Rheumatoid arthritis, unspecified (principal); N18.30 Chronic kidney disease, stage 3 unspecified; R53.83 Other fatigue; R73.03 Prediabetes; Z79.01 Long term (current) use of anticoagulants; E04.1 Nontoxic single thyroid nodule
CPT/HCPCS: 36415; 80053; 82607; 82728; 83036; 83540; 83550; 83735; 84439; 84443; 85025

== ENCOUNTER 2025-01-02 11:00 | Emergency (ER) | payer MEDICARE, MEDICAID, SELFPAY ==
[2025-01-02 11:00] VITALS: BP 146/67; PULSE 69; RESP 18; TEMP 36.8; O2SAT 93; BMI 23.5
--- NOTE | 2025-01-02 11:24 | EX.ED.DYSGE1 ---
HPI History of Present Illness Chief Complaint: Diarrhea Narrative Narrative: Chief complaint and HPI: Diarrhea. 79-year-old female with past medical history of CHF, atrial fibrillation on warfarin, HTN presents for evaluation of diarrhea. Patient states for the past 4 days she has been having watery diarrhea. Nonbloody or dark. Endorses intermittent abdominal pain. Denies any fever, chills, chest pain, URI, shortness of breath, nausea, vomiting, dysuria. Does endorse decreased p.o. intake. Denies any recent antibiotic use. Denies any sick contacts. Denies any tap water or recent ingestion of lakes/hummel. Review of systems: See HPI Medications: As listed on the chart Allergies: As listed on the chart PFSH: Per chart Vital signs: As listed on the chart. Reviewed. Physical exam: Gen: A&O x3, NAD Head: Normocephalic, atraumatic Eyes: No sclera icterus, conjunctiva clear ENT: Dry mucous membranes Neck: Trachea midline, No JVD CV: RRR, no murmurs, no peripheral edema Resp: Lungs CTA BL, no w/r/c GI: Abd soft, non-distended, non-tender, no r/r/g Musc: Full ROM, no deformity Skin: Warm, dry Neuro: Alert, oriented, grossly intact, sensation intact Psych: Cooperative, appropriate mood and affect [facility] Medical History (Reviewed 12/05/24 @ 15:24 by Frida Molina MANAGER OF COMMUNITY RELATIONS, MANAGER OF COMMUNITY RELATIONS-C) Mitral valve insufficiency Ernandez's esophagus with dysplasia Wears glasses Ambulates with cane Arthritis High cholesterol Difficulty chewing Shortness of breath on exertion History of echocardiogram Cardiology follow-up encounter Bloating Abdominal pain 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 Paroxysmal atrial fibrillation Essential hypertension Mixed hyperlipidemia Chronic atrial fibrillation with RVR Exudative pleural effusion Renal cyst Hepatic congestion Recurrent pleural effusion Leukocytosis Embolic infarction Renal infarction Splenic infarction Substance abuse Goiter Non-smoker Atrial fibrillation Congestive heart failure (CHF) Hypertension Rheumatoid arthritis COPD (chronic obstructive pulmonary disease) Pleural effusion Rheumatoid arthritis Paroxysmal atrial fibrillation with RVR Subtherapeutic international normalized ratio (INR) Chronic anticoagulation Pulmonary hypertension Hypokalemia Hyponatremia PNA (pneumonia) COPD (chronic obstructive pulmonary disease) PAF (paroxysmal atrial fibrillation) HTN (hypertension) GERD (gastroesophageal reflux disease) HLD (hyperlipidemia) Marfans syndrome Home Medications ?Medication ?Instructions ?Recorded ?Last Taken ?Type calcium carbonate 600 mg PO DAILY SUPPLEMENT 06/19/19 07/12/21 History multivitamin 1 tab PO DAILY SUPPLEMENT 06/19/19 07/12/21 History Handicap placard #1 ea 01/07/20 Unknown Rx albuterol sulfate 90 mcg/actuation 2 puff inhalation Q4H PRN SOB 01/09/20 1 Week Ago History aerosol inhaler ~06/30/21 amiodarone 200 mg tablet 100 mg (1/2 x 200 mg) PO DAILY #45 02/23/24 Unknown Rx tabs diltiazem HCl 240 mg 240 mg PO DAILY HEART #90 caps 02/23/24 Unknown Rx capsule,extended release 24 hr furosemide 40 mg tablet 40 mg PO QDAY 12/05/24 Unknown History metoprolol tartrate 50 mg tablet 50 mg PO BID 12/05/24 Unknown History omeprazole 20 mg capsule,delayed 20 mg PO BID 12/05/24 Unknown History release potassium chloride 20 mEq 20 meq PO QDAY 12/05/24 Unknown History tablet,extended release warfarin 4 mg tablet See Rx Instructions PO .COMPLEX 12/05/24 Unknown History AFIB Allergy/AdvReac Type Severity Reaction Status Date / Time pneumococcal vaccine (From Allergy Severe Rash Verified 01/02/25 11:01 Prevnar 13 (PF)) Latex, Natural Rubber Allergy Rash Verified 01/02/25 11:01 rosuvastatin calcium (From Allergy myalgias Verified 01/02/25 11:01 Crestor) ibuprofen AdvReac Nausea Verified 01/02/25 11:01 Family History Mother Diabetes Colon cancer Marfan syndrome Sister Diabetes Hypertension Brother Marfan syndrome COPD (chronic obstructive pulmonary disease) Brother Marfan syndrome Father Gastric ulcer GERD (gastroesophageal reflux disease) Surgical History History of eye surgery History of hysterectomy Social History household members: spouse and children housing: house Smoking Status: Never smoker alcohol intake: never substance use type: does not use caffeine: Yes Type: coffee Number of servings: 4 EXAM Physical Exam Const Vital Signs: 01/02/25 11:00 01/02/25 13:00 Temperature 98.3 F Temperature Source Oral Pulse Rate 69 67 Respiratory Rate 18 18 Blood Pressure 146/67 H 152/57 H Blood Pressure Mean 93 88 Pulse Ox 93 92 Oxygen Delivery Method Room Air Room Air MDM MDM MDM Narrative Medical decision making narrative: 79-year-old female with past medical history of CHF, atrial fibrillation on warfarin, HTN presents for evaluation of diarrhea. Nonbloody. Associated symptoms are decreased p.o. intake and episodic abdominal cramping. Differential diagnosis includes but is not limited to viral gastroenteritis, colitis, diverticulitis, electrolyte abnormality, STEVE, UTI. NS bolus ordered. Abdominal pain workup ordered including CT abdomen pelvis. CBC without leukocytosis or anemia. CMP relatively unremarkable without significant electrolyte abnormality or STEVE. No transaminitis. Lipase unremarkable. UA negative for UTI. Negative for ketones. CT abdomen pelvis shows stable hepatic cyst. Hepatomegaly. Multiple small gallstones. Sigmoid diverticulosis without diverticulitis. At this point in time, no clear etiology to explain the patient's diarrhea. She has not had diarrhea here in the emergency department. Patient can tolerate p.o. intake. Follow-up outpatient with primary care physician. Suspect viral gastroenteritis. Return back to the ED if symptoms change or worsen. Impression: 1. Diarrhea suspect viral Lab Data Labs: Laboratory Results - last 24 hr 01/02/25 01/02/25 11:37 13:14 WBC 8.1 RBC 4.67 Hgb 13.5 Hct 40.8 MCV 87.4 MCH 28.9 MCHC 33.1 RDW Std Deviation 45.2 H RDW Coeff of Angelo 14.2 Plt Count 267 MPV 9.1 Immature Gran % (Auto) 0.200 Neut % (Auto) 75.9 H Lymph % (Auto) 10.2 L Hardin % (Auto) 12.7 H Eos % (Auto) 0.5 Baso % (Auto) 0.5 Absolute Neuts (auto) 6.2 Absolute Lymphs (auto) 0.83 Nucleated RBC % 0 Sodium 137 Potassium 4.0 Chloride 103 Carbon Dioxide 23.0 Anion Gap 11 BUN 14 Creatinine 0.88 Estim Creat Clear Calc 39.12 L Est GFR (MDRD) Non-Af 67 BUN/Creatinine Ratio 15.7 Glucose 108 H Calcium 8.8 Total Bilirubin 0.38 AST 19 ALT 12 Alkaline Phosphatase 114 H Total Protein 6.9 Albumin 3.8 Globulin 3.1 Albumin/Globulin Ratio 1.2 Lipase 34 Urine Color Yellow Urine Clarity Clear Urine pH 6.0 Ur Specific [place] 1.010 Urine Protein 30 H Urine Glucose (UA) Normal Urine Ketones Negative Urine Occult Blood 10 H Urine Nitrite Negative Urine Bilirubin Negative Urine Urobilinogen Normal Ur Leukocyte Esterase Negative Urine RBC 0 SEEN Urine WBC 0 SEEN Ur Squamous Epith Cells 0 SEEN Urine Bacteria 0 SEEN Urine Mucus 0 SEEN Radiography Diagnostic Testing: Clinical Impression(s) from Imaging Studies Abdomen/Pelvis CT 01/02/25 12:16 IMPRESSION: Stable hepatic cysts. Hepatomegaly. Multiple small gallstone seen along the dependent portion the gallbladder lumen. Sigmoid diverticulosis without evidence of diverticulitis. Reading Location: [id number] Discharge Plan Triage Chief Complaint: Diarrhea ED Provider: Pablo Watson Dx/Rx/DC Orders Clinical Impression: Diarrhea Instructions: ED Diarrhea, Unknown Cause, ED Diet Vomiting Diarrhea Prescriptions: No Action multivitamin Tablet 1 tab PO DAILY calcium carbonate 600 mg calcium (1,500 mg) tablet 600 mg PO DAILY (DME) Handicap placard Qty: 1 0RF Rx Instructions: Lifetime handicap placard albuterol sulfate 90 mcg/actuation HFA aerosol inhaler 2 puff INHALATION Q4H PRN (Reason: SOB) metoprolol tartrate 50 mg tablet 50 mg PO BID omeprazole 20 mg capsule,delayed release(DR/EC) 20 mg PO BID warfarin 4 mg tablet See Rx Instructions PO .COMPLEX Rx Instructions: 2mg PO Mon & Wed, 3mg PO all other days furosemide 40 mg tablet 40 mg PO QDAY potassium chloride 20 mEq tablet extended release 20 meq PO QDAY amiodarone 200 mg tablet 100 mg PO DAILY Qty: 45 3RF diltiazem HCl 240 mg capsule,extended release 24hr 240 mg PO DAILY Qty: 90 3RF Rx Instructions: TAKE 1 CAPSULE EVERY DAY Primary Care Provider: Wes Magallon Referrals: Wes Magallon MD [Primary Care Provider] - 3-5 Days Activity Restrictions/Additional Instructions: Follow-up with primary care physician. Make sure that you drink plenty of fluids. Return back to the ED symptoms change or worsen. Print Language: Slovenian Disposition Disposition: Home, Self Care
[2025-01-02] MEDS: 0.9% Normal Saline (1000mL) 1,000 ML 999 ML IV (11:35)
[2025-01-02 11:44] LABS: Hematocrit 40.8 % (37-47); Hemoglobin 13.5 g/dL (12.0-15.0); Immature Granulocytes Count 0.020 X10^3/uL (0.0-0.0); Mean Corp Hgb Conc 33.1 g/dL (32-36); Mean Corpuscular Volume 87.4 fL (81-99); Mean Platelet Vol. 9.1 fl (6.2-12.0); NRBC Flagged by Analyzer 0 % (0-5); Platelet Count 267 K/mm3 (150-450); RBC Distribution Width CV 14.2 % (11.6-14.6); RBC Distribution Width SD 45.2 fl (35.1-43.9); Red Blood Count 4.67 M/mm3 (4.2-5.4); White Blood Count 8.1 K/mm3 (4.4-11.0)
[2025-01-02 12:06] LABS: AST(SGOT) 19 U/L (<=31); Alanine Aminotransfer ALT/SGPT 12 U/L (<=34); Albumin, Serum 3.8 g/dL (3.4-4.8); Alkaline Phosphatase 114 U/L (35-104); Anion Gap 11 (5-15); BUN 14 mg/dL (4-19); BUN/Creat Ratio 15.7 RATIO (10-20); Calcium,Total 8.8 mg/dL (7.6-11.0); Carbon Dioxide 23.0 mmol/L (21.0-32.0); Chloride 103 mmol/L (98-108); Estimated Creatinine Clearance 39.12 ml/min (50-250); Globulin 3.1 g/dL (2.2-4.2); Glucose 108 mg/dL (70-99); Lipase 34 U/L (13-75); Potassium 4.0 mmol/L (3.3-5.1)
--- NOTE | 2025-01-02 12:16 | CT_ITS ---
PROCEDURE: ABDOMEN/PELVIS W IV CONT ONLY 01/02/2025 REASON FOR EXAM: DIARRHEA TECHNIQUE: ABDOMEN/PELVIS W IV CONT ONLY Coronal and Sagittal reconstruction series were provided. CONTRAST: Isovue-300 VOLUME: 100 mL One or more dose reduction techniques were used (e.g., Automated exposure control, adjustment of the mA and/or kV according to patient size, use of iterative reconstruction technique. RADIATION DOSE SUMMARY: CTDlvol: 11.95 mGy DLP: 330.66 mGycm COMPARISON: Prior study dated December 09, 2022. FINDINGS: Lung bases: Stable increased linear markings at the lung bases suggestive of scarring. Minimal pleural thickening. Coronary artery calcifications. Liver: Stable scattered small cysts in the liver. Hepatomegaly. Gallbladder: There are multiple small layering gallstones along the dependent portion of the gallbladder lumen. Spleen: Normal size. Pancreas: Diffuse fatty atrophy. Adrenals: Unremarkable Kidneys: Normal renal sizes. No hydronephrosis. Bladder: Unremarkable Reproductive Organs: Status post hysterectomy. Bowel: Fluid-filled nondilated small bowel loops. Multiple sigmoid diverticulosis. Appendix: The appendix is not identified. There is no inflammatory process identified in the right lower quadrant to suggest appendicitis. Lymph nodes: Unremarkable. Vasculature: Mild diffuse atherosclerotic calcifications are noted. Peritoneum / Retroperitoneum: No evidence of ascites. Bones: Loss of height of the T11 vertebrae. This is unchanged. Mild degenerative changes. CT/Abdomen/Pelvis W IV Cont ONLY IMPRESSION: Stable hepatic cysts. Hepatomegaly. Multiple small gallstone seen along the dependent portion the gallbladder lumen . Sigmoid diverticulosis without evidence of diverticulitis. Reading Location: [id number]
[2025-01-02 13:00] VITALS: BP 152/57; PULSE 67; RESP 18; O2SAT 92
[2025-01-02 13:21] LABS: Mucous, Urine 0 SEEN /hpf (<or=2+); Red Blood Cells-Urine 0 SEEN /hpf (0-5); Squamous Epithelial Cells - UA 0 SEEN /hpf (5-10)
[2025-01-02 13:27] LABS: Color, Urine Yellow (Yellow); Glucose, Dipstick Normal (Normal); Ketone-Dipstick Negative (Negative); Leukocyte Esterase-Dipstick Negative /ul (Negative); Nitrite-Dipstick Negative (Negative); Occult Blood-Urine 10 /ul (Negative); Protein-Dipstick 30 mg/dl (Negative); Specific Gravity, Urine 1.010 (1.002-1.030); Urine Bilirubin Dipstick Negative (Negative)
[2025-01-02 14:33] VITALS: BP 168/66; PULSE 69; RESP 18; TEMP 37.1; O2SAT 91
== END 2025-01-02 14:35 | disposition home or self-care (01) ==
PROVIDERS: Emergency Provider Surgery; PCP Family Medicine; Referring Provider Surgery; Visit Provider Surgery
DX: R19.7 Diarrhea, unspecified (principal); I11.0 Hypertensive heart disease with heart failure; I50.9 Heart failure, unspecified; J44.9 Chronic obstructive pulmonary disease, unspecified; I48.0 Paroxysmal atrial fibrillation; Z90.710 Acquired absence of both cervix and uterus; E78.2 Mixed hyperlipidemia; Z79.01 Long term (current) use of anticoagulants; Z79.899 Other long term (current) 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; K21.9 Gastro-esophageal reflux disease without esophagitis
CPT/HCPCS: 74177; 80053; 81001; 83690; 85025; 96360; 96361; 99283; Q9967; A4216

== ENCOUNTER 2025-01-22 13:20 | Inpatient (IN) | payer MEDICARE, MEDICAID, SELFPAY ==
[2025-01-22] VITALS (11 sets, daily range): BP systolic 113–154; BP diastolic 53–71; PULSE 64–88; RESP 16–20; TEMP 36.7–37.7; O2SAT 85–97; BMI 22.4; BMI 22.7
--- NOTE | 2025-01-22 13:41 | RAD_ITS ---
PROCEDURE: CHEST PA AND LATERAL 01/22/2025 REASON FOR EXAM: FEVER TECHNIQUE: CHEST PA AND LATERAL COMPARISON: Comparison is made with prior study dated December 20, 2024. FINDINGS: Hardware: EKG electrodes are seen. Heart: Cardiomegaly. Mediastinum: Atherosclerotic calcification of the aortic arch. Lungs: There is evidence of vascular congestion and CHF superimposed on mild basilar scarring. Bones: Degenerative changes are identified within the thoracic spine. Increased kyphosis. RAD/Chest PA and Lateral IMPRESSION: Cardiomegaly and CHF. Reading Location: [id number]
--- NOTE | 2025-01-22 13:43 | EX.ED.DYSGE1 ---
HPI History of Present Illness Chief Complaint: Nausea/Vomiting Informant: patient Onset/Context/Timing Onset: Today and Hours Context: Gradual Onset Timing: Continuous Current Severity: Mild Maximum Severity: Mild Narrative Narrative: 79-year-old female history of A-fib on Coumadin, hypertension, COPD, known gallstones. Prior hysterectomy. States this morning around 10:00 she had fever and chills had nausea and vomiting. Denies any dysuria. Mild epigastric discomfort. Said she felt fine most of the day yesterday. 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 Paroxysmal atrial fibrillation Essential hypertension Mixed hyperlipidemia Chronic atrial fibrillation with RVR Exudative pleural effusion Renal cyst Hepatic congestion Recurrent pleural effusion Leukocytosis Embolic infarction Renal infarction Splenic infarction Substance abuse Goiter Non-smoker Atrial fibrillation Congestive heart failure (CHF) Hypertension Rheumatoid arthritis COPD (chronic obstructive pulmonary disease) Pleural effusion Rheumatoid arthritis Paroxysmal atrial fibrillation with RVR Subtherapeutic international normalized ratio (INR) Chronic anticoagulation Pulmonary hypertension Hypokalemia Hyponatremia PNA (pneumonia) COPD (chronic obstructive pulmonary disease) PAF (paroxysmal atrial fibrillation) HTN (hypertension) GERD (gastroesophageal reflux disease) HLD (hyperlipidemia) Marfans syndrome Home Medications ?Medication ?Instructions ?Recorded ?Last Taken ?Type calcium carbonate 600 mg PO DAILY SUPPLEMENT 06/19/19 07/12/21 History multivitamin 1 tab PO DAILY SUPPLEMENT 06/19/19 07/12/21 History albuterol sulfate 90 mcg/actuation 2 puff inhalation Q4H PRN SOB 01/09/20 1 Week Ago History aerosol inhaler ~06/30/21 amiodarone 200 mg tablet 100 mg (1/2 x 200 mg) PO DAILY #45 02/23/24 Unknown Rx tabs diltiazem HCl 240 mg 240 mg PO DAILY HEART #90 caps 02/23/24 Unknown Rx capsule,extended release 24 hr furosemide 40 mg tablet 40 mg PO QDAY 12/05/24 Unknown History omeprazole 20 mg capsule,delayed 20 mg PO BID 12/05/24 Unknown History release potassium chloride 20 mEq 20 meq PO QDAY 12/05/24 Unknown History tablet,extended release metoprolol tartrate 25 mg tablet 25 mg PO BID 01/22/25 Unknown History warfarin 2 mg tablet See Rx Instructions PO .COMPLEX 01/22/25 Unknown History warfarin 3 mg tablet 3 mg PO .COMPLEX 01/22/25 Unknown History Allergy/AdvReac Type Severity Reaction Status Date / Time pneumococcal vaccine (From Allergy Severe Rash Verified 01/22/25 13:22 Prevnar 13 (PF)) Latex, Natural Rubber Allergy Rash Verified 01/22/25 13:22 rosuvastatin calcium (From Allergy myalgias Verified 01/22/25 13:22 Crestor) ibuprofen AdvReac Nausea Verified 01/22/25 13:22 Family History Mother Diabetes Colon cancer Marfan syndrome Sister Diabetes Hypertension Brother Marfan syndrome COPD (chronic obstructive pulmonary disease) Brother Marfan syndrome Father Gastric ulcer GERD (gastroesophageal reflux disease) Surgical History History of eye surgery History of hysterectomy Social History household members: spouse and children housing: house Smoking Status: Never smoker alcohol intake: never substance use type: does not use caffeine: Yes Type: coffee Number of servings: 4 ROS ROS ED ROS Narrative Subjective fever. Nausea vomiting. Mild epigastric abdominal discomfort. Constitutional Constitutional ED: Reports fever(s) and subjective Eyes Eyes: Denies blurry vision ENT ENT ED: Denies ear pain Cardiovascular Cardiovascular: Denies chest pain Respiratory/Chest Respiratory/Chest: Denies cough or dyspnea Gastrointestinal Gastrointestinal: Reports abdominal pain, nausea and vomiting; Denies constipation, diarrhea or melena Genitourinary Genitourinary ED: Denies dysuria or hematuria Musculoskeletal Musculoskeletal: Denies arthralgias Integumentary Denies abscess Neurologic Neurologic: Denies headache(s) Psychiatric Psychiatric: Denies anxiety Endocrine Endocrinology: Denies cold intolerance Hematologic/Lymphatic Hematologic/Lymphatic: Reports none Allergic/Immunologic Allergic/Immunologic ED: Denies mouth swelling, tongue swelling or urticaria EXAM Physical Exam Narrative Exam Narrative: Significant phimosis upright in bed. Vital signs stable she has a temperature 99.9 orally. Pulse ox 92% on room air no hypoxia. H EENT exam pupils round react light. Moist mucous membranes. No facial droop. Neck nontender. Lungs clear to auscultation bilaterally. Cough. Heart rate about 90 no murmur. Chest wall and ribs nontender. Abdomen soft mild tenderness epigastric. No rebound guarding or rigidity. No specific right upper or right lower quadrant tenderness. No obstruction or distention. No hernia or mass. Moving all 4 extremities. Nontender. No rash. Neurologically she is awake and alert. Answering questions following commands. Daughter at bedside. Const Vital Signs: 01/22/25 13:21 01/22/25 13:59 01/22/25 15:23 Temperature 99.9 F H 99.5 F H Temperature Source Oral Oral Pulse Rate 88 68 Respiratory Rate 16 16 Blood Pressure 154/71 H 131/69 H Blood Pressure Mean 98 89 Pulse Ox 92 85 97 Oxygen Delivery Method Room Air Room Air Nasal Cannula Oxygen Flow Rate (L/min) 2 01/22/25 16:26 Temperature 99.2 F H Temperature Source Oral Pulse Rate 66 Respiratory Rate 17 Blood Pressure 132/57 H Blood Pressure Mean 82 Pulse Ox 95 Oxygen Delivery Method Nasal Cannula Oxygen Flow Rate (L/min) 2 Positive well nourished and well developed; Negative for cachectic, contractures or unkempt General Appearance ED: well developed and NAD; Negative for unkempt, cachectic, contractures, cyanotic, diaphoretic or pallor Nutritional Appearance: Negative for cachectic HEENT Reports moist mucous membranes Eyes PERRL and EOMs intact bilaterally Neck no lymphadenopathy, supple and no JVD Chest Wall inspection of chest normal and palpation of chest normal Resp normal respiratory effort and clear to auscultation bilaterally Cardio regular rate, regular rhythm, S1 normal heart sound, S2 normal heart sound and no murmurs GI normal to inspection, nondistended, normoactive bowel sounds, non-distended and no masses; Negative for non-tender GI Narrative: Mild epigastric tenderness. No rebound guarding or rigidity. No hernia or mass. No localizing McBurney's per tenderness or Gtz sign. Inspection: Negative for abdominal distention Auscultation: normoactive bowel sounds Palpation: soft and tender; Negative for guarding, splenomegaly, mass or rebound tenderness present Back/Spine no CVA tenderness Back/Spine Narrative: significant kyphosis of her spine. General Back: Negative for CVA tenderness Cervical Spine: Negative for cervical spine tenderness Thoracic Spine / Upper Back: Negative for thoracic spinal tenderness or paraspinal muscle tenderness Lumbar Spine / Lower Back: Negative for lumbar spinal tenderness Extremity normal to inspection General Extremety ED: Negative for edema or tenderness General Extremity: Negative for edema Neuro oriented x3 and CN's II-XII intact bilaterally Sensorium / Orientation: alert Motor Exam: strength 5/5 throughout Psych mental status grossly normal Appearance: Negative for unkempt Attitude: No agitated Mood & Affect: Negative for depressed, anxious or tearful Skin no rashes or lesions noted, no wounds and skin turgor normal General Skin Exam: Negative for jaundice or pallor Lesions: No lesion noted Rashes: No rashes noted Trauma: Negative for abrasion Wounds: Negative for wounds noted MDM MDM MDM Narrative Medical decision making narrative: 79-year-old female subjective for nausea vomiting. Only mild abdominal discomfort. This could be a viral syndrome, UTI or intra-abdominal pathology. CAT scan and labs will be done. She be given Zofran for nausea IV fluids. Tylenol for her fever. Repeat exam at around 3:33 PM patient is doing better. Currently she is on oxygen while in the emergency department she desaturated to the mid 80s. She said she has had a cough recently. She denies any chest pain. We went over her test results. I think she has a viral syndrome I am sending a COVID and flu swab. It has been ordered but not returned. I repeat exam she is wheezing she will be given DuoNeb and albuterol aerosols and IV Solu-Medrol she is a history of COPD but she is not on oxygen at home. I will speak to the hospitalist about admission. History & Record Review Discussion w/independent historian: Patient and Family Additional record(s) reviewed:: Prior inpatient record, Prior outpatient record, Prior ED visit and Prior labs Lab Data Attestation: I reviewed the patient's lab results. Lab results narrative: CBC shows a white count of 13.5. H&H 14 and 42. Platelets 289. PT/INR of 24 and 2.1 she is on warfarin. Electrolytes show sodium 130. Gap 14. BUN and creatinine of 10 and 0.7. Glucose 116. Liver enzymes unremarkable other alk phos of 109. Lipase 23. Urinalysis negative. No white or red cells. Rare bacteria. No nitrates CT abdomen pelvis shows chronic changes. Right pleural effusion. Chest x-ray shows chronic changes. Labs: Laboratory Results - last 24 hr 01/22/25 01/22/25 13:35 14:57 WBC 13.5 H RBC 4.96 Hgb 14.2 Hct 42.8 MCV 86.3 MCH 28.6 MCHC 33.2 RDW Std Deviation 46.0 H RDW Coeff of Angelo 14.6 Plt Count 289 MPV 9.4 Immature Gran % (Auto) 0.500 Neut % (Auto) 84.4 H Lymph % (Auto) 5.2 L Lyon % (Auto) 9.4 Eos % (Auto) 0.1 Baso % (Auto) 0.4 Absolute Neuts (auto) 11.4 H Absolute Lymphs (auto) 0.70 L Nucleated RBC % 0 PT 24.3 H INR 2.1 Sodium 130 L Potassium 4.0 Chloride 94 L Carbon Dioxide 22.0 Anion Gap 14 BUN 10 Creatinine 0.79 Estim Creat Clear Calc 43.03 L Est GFR (MDRD) Non-Af 77 BUN/Creatinine Ratio 13.0 Glucose 116 H Calcium 8.6 Total Bilirubin 1.14 AST 20 ALT 11 Alkaline Phosphatase 109 H Total Protein 7.6 Albumin 3.9 Globulin 3.7 Albumin/Globulin Ratio 1.0 Lipase 23 Urine Color Straw Urine Clarity Clear Urine pH 6.5 Ur Specific [place] 1.010 Urine Protein Negative Urine Glucose (UA) Normal Urine Ketones Negative Urine Occult Blood Negative Urine Nitrite Negative Urine Bilirubin Negative Urine Urobilinogen Normal Ur Leukocyte Esterase Negative Urine RBC 0-5 SEEN Urine WBC 0-5 SEEN Ur Squamous Epith Cells 0-5 SEEN Urine Bacteria RARE Urine Mucus 0 SEEN Radiography Chest X-Ray - ED: Read by ED Physician, Read by Radiologist, Mediastinum, Bony Structures, Chronic Changes and Cardiomegaly Diagnostic Testing: Clinical Impression(s) from Imaging Studies Chest X-Ray 01/22/25 13:41 IMPRESSION: Cardiomegaly and CHF. Reading Location: [facility] Abdomen/Pelvis CT 01/22/25 14:06 IMPRESSION: Small right pleural effusion with bibasilar scarring. Hepatomegaly. Stable small hepatic cysts. Multiple layering gallstones. Sigmoid diverticulosis. Reading Location: [facility] Chest x-ray, 2 views, AP and lateral, interpreted by by myself and the radiologist. Shows cardiomegaly. Chronic changes. No obvious pneumonia. No obvious effusion on chest x-ray. Discharge Plan Triage Chief Complaint: Nausea/Vomiting ED Provider: Juan Vines Dx/Rx/DC Orders Prescriptions: No Action multivitamin Tablet 1 tab PO DAILY calcium carbonate 600 mg calcium (1,500 mg) tablet 600 mg PO DAILY albuterol sulfate 90 mcg/actuation HFA aerosol inhaler 2 puff INHALATION Q4H PRN (Reason: SOB) omeprazole 20 mg capsule,delayed release(DR/EC) 20 mg PO BID furosemide 40 mg tablet 40 mg PO QDAY Patient Comments: DOES NOT TAKE ALL THE TIME ONLY WHEN SHE FEELS LIKE SHE NEEDS IT OF 01/22/2025 potassium chloride 20 mEq tablet extended release 20 meq PO QDAY warfarin 3 mg tablet 3 mg PO .COMPLEX Rx Instructions: TAKE ONE, 3 MG TABLET ON MONDAY, MONDAY, MONDAY, MONDAY, AND MONDAY; warfarin 2 mg tablet See Rx Instructions PO .COMPLEX Rx Instructions: TAKE 1 TABLET BY MOUTH ON MONDAY AND MONDAY AND TAKE 3 MG ALL OTHER DAYS OR DIRECTED PENDING LAB RESULTS metoprolol tartrate 25 mg tablet 25 mg PO BID amiodarone 200 mg tablet 100 mg PO DAILY Qty: 45 3RF diltiazem HCl 240 mg capsule,extended release 24hr 240 mg PO DAILY Qty: 90 3RF Rx Instructions: TAKE 1 CAPSULE EVERY DAY Primary Care Provider: Wes Magallon Referrals: Wes Magallon MD [Primary Care Provider] - Print Language: Georgian
[2025-01-22] MEDS: 0.9% Normal Saline (500mL Bag) 500 ML 1000 ML IV (13:48)
--- NOTE | 2025-01-22 14:06 | CT_ITS ---
PROCEDURE: ABDOMEN/PELVIS W IV CONT ONLY 01/22/2025 REASON FOR EXAM: ABD PAIN AND FEVER TECHNIQUE: ABDOMEN/PELVIS W IV CONT ONLY Coronal and Sagittal reconstruction series were provided. CONTRAST: Isovue-300 VOLUME: 100 mL One or more dose reduction techniques were used (e.g., Automated exposure control, adjustment of the mA and/or kV according to patient size, use of iterative reconstruction technique. RADIATION DOSE SUMMARY: CTDlvol: 8.7 mGy DLP: 317.85 mGycm COMPARISON: Prior study dated January 02, 2025 FINDINGS: Lung bases: Stable increased linear markings at the lung bases suggestive of scarring. Minimal right pleural thickening. This is unchanged. Coronary artery calcification. Liver: Hepatomegaly. Stable scattered small hepatic calcifications. Gallbladder: Multiple small layering gallstones along the dependent portion of the gallbladder lumen. Spleen: Normal size. Pancreas: Normal size without evidence of mass surrounding inflammation or ductal dilation. Adrenals: Unremarkable Kidneys: Normal renal sizes. No hydronephrosis. Bladder: The urinary bladder is distended. Reproductive Organs: Prior hysterectomy. Adnexal regions are unremarkable. Bowel: Colonic diverticulosis without diverticulitis. Appendix: The appendix is not identified. There is no inflammatory process identified in the right lower quadrant to suggest appendicitis. Lymph nodes: Unremarkable. Vasculature: Mild diffuse atherosclerotic calcifications are noted. Peritoneum / Retroperitoneum: Unremarkable Bones: Stable loss of height of the T11 vertebrae. CT/Abdomen/Pelvis W IV Cont ONLY IMPRESSION: Small right pleural effusion with bibasilar scarring. Hepatomegaly. Stable small hepatic cysts. Multiple layering gallstones. Sigmoid diverticulosis. Reading Location: [id number]
[2025-01-22 14:22] LABS: Hematocrit 42.8 % (37-47); Hemoglobin 14.2 g/dL (12.0-15.0); Immature Granulocytes Count 0.070 X10^3/uL (0.0-0.0); Mean Corp Hgb Conc 33.2 g/dL (32-36); Mean Corpuscular Volume 86.3 fL (81-99); Mean Platelet Vol. 9.4 fl (6.2-12.0); NRBC Flagged by Analyzer 0 % (0-5); Platelet Count 289 K/mm3 (150-450); RBC Distribution Width CV 14.6 % (11.6-14.6); RBC Distribution Width SD 46.0 fl (35.1-43.9); Red Blood Count 4.96 M/mm3 (4.2-5.4); White Blood Count 13.5 K/mm3 (4.4-11.0)
[2025-01-22 14:32] LABS: Prothrombin Time (Protime)PT. 24.3 SECONDS (11.7-14.9)
[2025-01-22 15:04] LABS: AST(SGOT) 20 U/L (<=31); Alanine Aminotransfer ALT/SGPT 11 U/L (<=34); Albumin, Serum 3.9 g/dL (3.4-4.8); Alkaline Phosphatase 109 U/L (35-104); Anion Gap 14 (5-15); BUN 10 mg/dL (4-19); BUN/Creat Ratio 13.0 RATIO (10-20); Calcium,Total 8.6 mg/dL (7.6-11.0); Carbon Dioxide 22.0 mmol/L (21.0-32.0); Chloride 94 mmol/L (98-108); Estimated Creatinine Clearance 43.03 ml/min (50-250); Globulin 3.7 g/dL (2.2-4.2); Glucose 116 mg/dL (70-99); Lipase 23 U/L (13-75); Potassium 4.0 mmol/L (3.3-5.1)
[2025-01-22 15:04] LABS: Mucous, Urine 0 SEEN /hpf (<or=2+)
[2025-01-22 15:07] LABS: Color, Urine Straw (Yellow); Glucose, Dipstick Normal (Normal); Ketone-Dipstick Negative (Negative); Leukocyte Esterase-Dipstick Negative /ul (Negative); Nitrite-Dipstick Negative (Negative); Occult Blood-Urine Negative /ul (Negative); Protein-Dipstick Negative (Negative); Specific Gravity, Urine 1.010 (1.002-1.030); Urine Bilirubin Dipstick Negative (Negative)
[2025-01-22 16:20] LABS: Red Blood Cells-Urine 0-5 SEEN /hpf (0-5); Squamous Epithelial Cells - UA 0-5 SEEN /hpf (5-10)
--- NOTE | 2025-01-22 16:50 | HP.PCM.HOS_ITS ---
HPI - General General Date of Admission: 01/22/25 Date of Service: 01/22/25 Chief Complaint: Fever/chills and nausea with vomiting HPI Narrative NIMISHA CEJA, is a 79 F who presented to [facility] ED on 01/22/2025 with fever/chills and nausea with vomiting. Medical history is significant for chronic HFpEF with pulmonary hypertension, paroxysmal A-fib, hypertension, hyperlipidemia and asthma/COPD. She is not on home oxygen. She lives at home with her 2 sons. She came to the ED today with fever/chill and nausea with vomiting that began this morning. Notes that she felt fine most of the day yesterday but then developed the symptoms this morning. Also had epigastric discomfort with this and mild shortness of breath with exertion. In the ED she was hypoxic to the mid 80s on room air at rest and had a low-grade fever to 99.9 F. She otherwise was normotensive and in normal sinus rhythm. Labs notable for WBC count 13.5, sodium 130, chloride 94. BNP elevated at 4301. Chest x-ray showed cardiomegaly with vascular congestion consistent with CHF. CT abdomen pelvis showed gallstones and hepatomegaly but no concern for acute cholecystitis or acute liver injury. There is concern for COPD exacerbation in the ED so she was given DuoNeb treatment and a dose of IV Solu-Medrol, and hospitalist was I saw the patient at bedside in the ED, granddaughter was present. Patient was mildly fatigued appearing but otherwise sitting back fairly comfortably in bed, breathing comfortably on 2 L nasal cannula at rest and in no acute distress. She states that the breathing treatment they gave her seem to be mildly helpful for her. She denies any fevers or chills currently. No other acute concerns today. Will be admitted for further management. [facility] Medical History Mitral valve insufficiency Ernandez's esophagus with dysplasia Wears glasses Ambulates with cane Arthritis High cholesterol Difficulty chewing Shortness of breath on exertion History of echocardiogram Cardiology follow-up encounter Bloating Abdominal pain [facility] current use of amiodarone Paroxysmal atrial fibrillation Essential hypertension Mixed hyperlipidemia Chronic atrial fibrillation with RVR Exudative pleural effusion Renal cyst Hepatic congestion Recurrent pleural effusion Leukocytosis Embolic infarction Renal infarction Splenic infarction Substance abuse Goiter Non-smoker Atrial fibrillation Congestive heart failure (CHF) Hypertension Rheumatoid arthritis COPD (chronic obstructive pulmonary disease) Pleural effusion Rheumatoid arthritis Paroxysmal atrial fibrillation with RVR Subtherapeutic international normalized ratio (INR) Chronic anticoagulation Pulmonary hypertension Hypokalemia Hyponatremia PNA (pneumonia) COPD (chronic obstructive pulmonary disease) PAF (paroxysmal atrial fibrillation) HTN (hypertension) GERD (gastroesophageal reflux disease) HLD (hyperlipidemia) Marfans syndrome Home Medications ?Medication ?Instructions ?Recorded ?Last Taken ?Type calcium carbonate 600 mg PO DAILY SUPPLEMENT 0 06/19/19 07/12/21 History multivitamin 1 tab PO DAILY SUPPLEMENT 07/12/21 History albuterol sulfate 90 mcg/actuation 2 puff inhalation Q 4H PRN SOB 01/09/20 1 Week Ago History aerosol inhaler ~06/30/21 amiodarone 200 mg tablet 100 mg (1/2 x 200 mg) PO TEJ LY #45 02/23/24 Unknown Rx tabs diltiazem HCl 240 mg 240 mg PO DAILY HEART #90 ca ps 02/23/24 Unknown Rx capsule,extended release 24 hr furosemide 40 mg tablet 40 mg PO QDAY PRN diuretic 0 12/05/24 Unknown History omeprazole 20 mg capsule,delayed 20 mg PO BID 12/05/24 Unknown History release potassium chloride 20 mEq 20 meq PO QDAY 12/05/24 Unkn own History tablet,extended release fluticasone propionate 50 1 - 2 spray intranasal DAILY 01/22/25 Unknown History mcg/actuation nasal health maintnance spray,suspension metoprolol tartrate 25 mg tablet 25 mg PO BID 01/22/25 Unknown History warfarin 2 mg tablet See Rx Instructions PO .COMP ESTRELLA 01/22/25 Unknown History warfarin 3 mg tablet 3 mg PO .COMPLEX 01/22/25 Un known History Allergy/AdvReac Type Severity Reaction Status Date / Time pneumococcal vaccine (From Allergy Severe Rash Verified 01/22/25 13:22 Prevnar 13 (PF)) Latex, Natural Rubber Allergy Rash Verified 01/22/25 13:22 rosuvastatin calcium (From Allergy myalgias Verified 01/22/25 13:22 Crestor) ibuprofen AdvReac Nausea Verified 01/22/25 13:22 Family History Mother Diabetes Colon cancer Marfan syndrome Sister Diabetes Hypertension Brother Marfan syndrome COPD (chronic obstructive pulmonary disease) Brother Marfan syndrome Father Gastric ulcer GERD (gastroesophageal reflux disease) Surgical History History of eye surgery History of hysterectomy Social History household members: spouse and children housing: house Smoking Status: Never smoker alcohol intake: never substance use type: does not use caffeine: Yes Type: coffee Number of servings: 4 ROS Constitutional Constitutional: Reports chills, fatigue and fever(s); Denies weakness Eyes Eyes: Denies change in vision Cardiovascular Cardiovascular: Reports dyspnea on exertion; Denies chest pain, edema, lightheadedness or palpitations Respiratory/Chest Respiratory/Chest: Reports cough and shortness of breath with exertion; Denies productive cough, shortness of breath at rest or wheezing Gastrointestinal Gastrointestinal: Denies abdominal pain Genitourinary Genitourinary: Denies dysuria Musculoskeletal Musculoskeletal: Denies arthralgias or myalgias Neurologic Neurologic: Denies dizziness, focal weakness or headache(s) Vital Signs Vital Signs Vital Signs: 01/22/25 13:21 01/22/25 13:59 01/22/25 15:23 Temperature 99.9 F H 99.5 F H Temperature Source Oral Oral Pulse Rate 88 68 Respiratory Rate 16 16 Blood Pressure 154/71 H 131/69 H Blood Pressure Mean 98 89 Pulse Ox 92 85 97 Oxygen Delivery Method Room Air Room Air Nasal Cannula Oxygen Flow Rate (L/min) 2 01/22/25 16:26 Temperature 99.2 F H Temperature Source Oral Pulse Rate 66 Respiratory Rate 17 Blood Pressure 132/57 H Blood Pressure Mean 82 Pulse Ox 95 Oxygen Delivery Method Nasal Cannula Oxygen Flow Rate (L/min) 2 Weight Weight: 53.705 kg Body Mass Index (BMI) 22.4 Physical Exam Const alert, oriented x3, no apparent distress and average body habitus Constitutional Narrative: Elderly female, fatigued appearing but otherwise sitting back comfortably in bed, conversing normally, in no acute distress. General Appearance: cooperative and comfortable HEENT normocephalic, head/scalp atraumatic, hearing grossly normal bilaterally, nasal mucous membranes and turbinates normal and moist oral mucous membranes Eyes PERRL, EOMs intact bilaterally and conjunctivae normal Neck full ROM Chest inspection of chest normal Resp normal respiratory effort and no use of accessory muscles Resp Narrative: Breathing comfortably on 2 L nasal cannula at rest. Diminished breath sounds in bilateral lung bases with crackles noted. No wheezing noted. Cardio regular rate, regular rhythm, no murmurs and peripheral pulses 2+ throughout GI normal to inspection, nondistended, normoactive bowel sounds, soft to palpation, non-tender and non-distended Back/Spine normal ROM Extremity normal to inspection, full ROM and no pedal edema Skin no rashes or lesions noted Psych mental status grossly normal Results Lab / Micro Data 01/22/25 13:35 01/22/25 13:35 Labs: Laboratory Results - last 24 hr 01/22/25 13:35: WBC 13.5 H, RBC 4.96, Hgb 14.2, Hct 42.8, MCV 86.3, MCH 28.6, MCHC 33.2, RDW Std Deviation 46.0 H, RDW Coeff of Angelo 14.6, Plt Count 289, MPV 9.4, Immature Gran % (Auto) 0.500, Neut % (Auto) 84.4 H, Lymph % (Auto) 5.2 L, [place] % (Auto) 9.4, Eos % (Auto) 0.1, Baso % (Auto) 0.4, Absolute Neuts (auto) 11.4 H, Absolute Lymphs (auto) 0.70 L, Nucleated RBC % 0, PT 24.3 H, INR 2.1, S odium 130 L, Potassium 4.0, Chloride 94 L, Carbon Dioxide 22.0, Anion Gap 14, BUN 10, Creatinine 0.79, Estim Creat Clear Calc 43.03 L, Est GFR (MDRD) Non-Af 77, BUN/Creatinine Ratio 13.0, Glucose 116 H, Calcium 8.6, Total Bilirubin 1.14, AST 20, ALT 11, Alkaline Phosphatase 109 H, Total Protein 7.6, Albumin 3.9, Globulin 3.7, Albumin/Globulin Ratio 1.0, Lipase 23 01/22/25 14:57: Urine Color Straw, Urine Clarity Clear, Urine pH 6.5, Ur Specific [place] 1.010, Urine Protein Negative, Urine Glucose (UA) Normal, Urine Ketones Negative, Urine Occult Blood Negative, Urine Nitrite Negative, Urine Bilirubin Negative, Urine Urobilinogen Normal, Ur Leukocyte Esterase Negative, Urine RBC 0-5 SEEN, Urine WBC 0-5 SEEN, Ur Squamous Epith Cells 0-5 SEEN, Urine Bacteria RARE, Urine Mucus 0 SEEN Imaging Radiology Impression Chest X-Ray 01/22/25 13:41 IMPRESSION: Cardiomegaly and CHF. Reading Location: [id number] Abdomen/Pelvis CT 01/22/25 14:06 IMPRESSION: Small right pleural effusion with bibasilar scarring. Hepatomegaly. Stable small hepatic cysts. Multiple layering gallstones. Sigmoid diverticulosis. Reading Location: [facility] Assessment & Plan Assessment/Plan (1) CHF exacerbation: PLAN: Plan Patient is a 79-year-old female who presented to [facility] ED on 01/22/2025 with fever/chills, nausea with vomiting and shortness of breath with exertion. 1. Acute hypoxia secondary to acute on chronic HFpEF known pulmonary hypertension with suspected viral URI, concern for COPD exacerbation ? Admit under inpatient status to PCU. Requiring 2 L nasal cannula at rest in the ED to maintain appropriate oxygen saturations. Not on home oxygen. Chest x-ray showed vascular congestion consistent with CHF. BNP elevated at 4301. Last echo in 12/2023 showed EF 60%, moderately large LA, pulmonary artery systolic pressure of 80 mmHg consistent with severe pulmonary hypertension. Patient also with leukocytosis with WBC count 13K, low-grade fever and URI symptoms on admit. Procalcitonin negative. Seems most consistent with viral URI. COVID/flu/RSV negative. No wheezing noted on my physical exam. Will treat with IV Lasix 40 mg twice daily for now, monitor daily BMP and urine output. Will start scheduled DuoNebs but hold off on steroids or antibiotics. Repeat echocardiogram ordered. Wean supplemental oxygen as able. 2. Paroxysmal A-fib on warfarin, hypertension ? In normal sinus rhythm on admit. INR 2.1, at goal. Continue home amiodarone, diltiazem and Lopressor. Notably patient is on chronic amiodarone therapy and completed PFTs recently in late December that showed mild restrictive ventilatory impairment with moderate reduction in diffusing capacity. 3. GERD ? Continue home PPI. DVT prophylaxis: Not indicated, on warfarin CODE STATUS: Full code, verified Expected disposition: Home, 2 to 3 days Total clinical time spent by myself addressing the patient's medical issues, reviewing all the data, and collaborating with patient's care team: 75 minutes. Charges/Coding Visit Charges Inpatient E&M: 75676 Init Hosp L3
[2025-01-22] MEDS: Albuterol 2.5 MG/3 ML VIAL.NEB. INHALATION (17:15)
[2025-01-22 17:48] LABS: Pro- Brain NATRIURETIC PEPTIDE 4301 pg/mL (<=1800); Procalcitonin 0.12 ng/mL (<=0.10)
[2025-01-22] MEDS: 0.9% Saline Lock 10 ML Syringe IV ×2 (18:38→20:54)
[2025-01-22] MEDS: Warfarin (PBKC) 2 MG Tablet PO (21:27)
[2025-01-23] VITALS (10 sets, daily range): BP systolic 113–142; BP diastolic 48–67; PULSE 61–80; RESP 16–24; TEMP 36.5–36.8; O2SAT 90–97
[2025-01-23 05:51] LABS: Hematocrit 41.5 % (37-47); Hemoglobin 14.1 g/dL (12.0-15.0); Mean Corp Hgb Conc 34.0 g/dL (32-36); Mean Corpuscular Volume 86.1 fL (81-99); Mean Platelet Vol. 9.0 fl (6.2-12.0); Platelet Count 266 K/mm3 (150-450); RBC Distribution Width CV 14.6 % (11.6-14.6); RBC Distribution Width SD 45.8 fl (35.1-43.9); Red Blood Count 4.82 M/mm3 (4.2-5.4); White Blood Count 9.1 K/mm3 (4.4-11.0)
[2025-01-23 06:17] LABS: Anion Gap 14 (5-15); BUN 14 mg/dL (4-19); BUN/Creat Ratio 18.4 RATIO (10-20); Calcium,Total 8.4 mg/dL (7.6-11.0); Carbon Dioxide 23.6 mmol/L (21.0-32.0); Chloride 97 mmol/L (98-108); Estimated Creatinine Clearance 40.96 ml/min (50-250); Glucose 184 mg/dL (70-99); Potassium 3.9 mmol/L (3.3-5.1)
[2025-01-23] MEDS: Calcium (Elemental) 500 MG Tablet PO (08:53)
[2025-01-23] MEDS: Potassium Chloride Oral Tablet 20 MEQ PO (08:53)
[2025-01-23] MEDS: 0.9% Saline Lock 10 ML Syringe IV ×2 (08:54→21:04)
--- NOTE | 2025-01-23 11:55 | CASEMGMT ---
PEYTON TONY Face to Face with patient for initial transition planning/care coordination assessment. RN CM introduced self and role at [facility]. Patient lying in bed, alert and oriented. Patient willing to participate in assessment and is able to answer all questions appropriately. Care providers, pharmacy, and demographics verified. Strata: 3 PCP: Sherita Specialists: HERBER, telecommunications line installer; ANGELES Hull Preferred Pharmacy: [facility] [place] [facility] Prescription Benefit: yes Living Will/HPOA: none LNOK: daughters, sons Living Arrangements: Patient lives with 2 sons, daughter, and grandson in a 2 story home. Patient states she is independent and able to ambulate stairs. Transportation: children DME/HHC: Patient has shower chair, cane, grab bars, and walker at home. Will monitor for home oxygen, prefers [employer]. No previous SNF. Patient has had HHC in the past. Patient wishes to discharge home and is interested in possible HHC at discharge, will follow progress with therapy. Patient states she has no further needs or concerns at this time. CM to follow for discharge planning needs that may arise. Disposition Plan: Patient to discharge home with possible HHC, family support, and follow-up plans in place. Mayra MATTHEW, RN, CM
--- NOTE | 2025-01-23 14:52 | CHAPLAIN ---
Type of Pastoral Visit _x__ Initial Visit ___ Follow-up Visit ___ On-call Visit ___ General Patient Visit ___ Spiritual Assessment ___ Family Conference ___ Bereavement ___ Rapid Response ___ Code Blue ___ Other (describe below) Pastoral Care Referral From _x__ Patient ___ Family ___ Nurse ___ Physician ___ Forming Process Line Worker ___ Upper Leather Cutter ___ Other (describe below) Sacrament/Intervention _x__ Active listening ___ Anointing ___ Christian ___ Bereavement ___ Communion _x__ Citlaly exploration ___ _x__ Life review _x__ Prayer ___ Reconciliation ___ Sacrament of Sick _x__ Supportive presence ___ Wedding ___ Other (describe below) Pastoral Comments patient talks about testing to find out what her health needs are currently; pt mostly talks about her citlaly in God and the needs in her family for spiritual help; encouragement, conversation, and prayer given on these matters
--- NOTE | 2025-01-23 15:08 | PN_ITS ---
Subjective Subjective Patient seen and examined with her nurse by her bedside. She had no complaints. She is on 2 L of oxygen and says she does not wear any oxygen at home. She denies any cough or chest pain, palpitations, dizziness, nausea or vomiting or any other symptoms. Review of systems otherwise negative. Objective Data Objective Data Vital Signs: Vital Signs Temp Pulse Resp BP Pulse Ox O2 Del Method O2 Flow Rate 97.7 F L 61 16 113/48 L 97 Nasal Cannula 2 01/23/25 14:26 01/23/25 14:26 01/23/25 14:26 01/23/25 14:26 01/23/25 14:26 01/23/25 14:44 01/23/25 14:44 Oxygen Flow Rate (L/min) 2 Oxygen Delivery Method Nasal Cannula Weight: 116 lb 9.992 oz Body Mass Index (BMI) 22.7 Intake & Output: Intake and Output for Last 24 Hours 01/21/25 01/22/25 01/23/25 23:59 23:59 23:59 Intake Total 700 / 920 470 / 470 Output Total 600 / 600 Balance 700 / 820 -130 / -130 Lab / Micro Data 01/23/25 05:09 01/23/25 05:09 Labs: Laboratory Results - last 24 hr 01/22/25 13:35: NT pro BNP II 4301 H, Procalcitonin 0.12 H 01/22/25 14:57: Urine Color Straw, Urine Clarity Clear, Urine pH 6.5, Ur Specific [place] 1.010, Urine Protein Negative, Urine Glucose (UA) Normal, Urine Ketones Negative, Urine Occult Blood Negative, Urine Nitrite Negative, Urine Bilirubin Negative, Urine Urobilinogen Normal, Ur Leukocyte Esterase Negative, Urine RBC 0-5 SEEN, Urine WBC 0-5 SEEN, Ur Squamous Epith Cells 0-5 SEEN, Urine Bacteria RARE, Urine Mucus 0 SEEN 01/23/25 05:09: WBC 9.1, RBC 4.82, Hgb 14.1, Hct 41.5, MCV 86.1, MCH 29.3, MCHC 34.0, RDW Std Deviation 45.8 H, RDW Coeff of Angelo 14.6, Plt Count 266, MPV 9.0, Sodium 134, Potassium 3.9, Chloride 97 L, Carbon Dioxide 23.6, Anion Gap 14, BUN 14, Creatinine 0.76, Estim Creat Clear Calc 40.96 L, Est GFR (MDRD) Non-Af 80, BUN/Creatinine Ratio 18.4, Glucose 184 H, Calcium 8.4 Micro: Microbiology 01/22/25 16:04 Mucosa - Nose SARS-CoV-2, Influenza & RSV (PCR) - Final Physical Exam Const alert, oriented x3 and no apparent distress Constitutional Narrative: frail General Appearance: cooperative HEENT normocephalic, head/scalp atraumatic, moist oral mucous membranes and oropharynx normal Eyes EOMs intact bilaterally Neck supple and no JVD Lymph Lymphatic: no lymphedema noted Resp Resp Narrative: mildly diminished breath sounds bibasally, bilateral few crackles. On 2L of oxygen by nasal canula Cardio regular rate, regular rhythm, S1 normal heart sound, S2 normal heart sound and no murmurs GI normal to inspection, nondistended, normoactive bowel sounds, soft to palpation, non-tender and non-distended Extremity normal capillary refill, no clubbing, cyanosis or edema and no calf tenderness General Extremity: no tenderness to palpation of joints or extremities Skin General Skin Exam: no breakdown Neuro no focal motor deficits and no sensory deficits noted Motor Exam: general weakness Psych thought process normal, cooperative and affect normal Mood & Affect: flat affect Assessment & Plan Assessment/Plan (1) CHF exacerbation: PLAN: Plan #Hypoxia due to Acute exacerbation of heart failure with preserved EF and acute on chronic COPD exacerbation. * on 2L of oxygen. Uusally on room air at home. * BNP was elevated at 4301. 2D echo from November 2023 showed EF of 60% and pulmonary systolic pressure of 80mmHg consistent with severe pulmonary hypertension * on IV lasix 40mg bid * monitor intake and output * on breathing treatment with bronchodilators * repeat 2D echo ordered. * titrate oxygen to maintain sats >90% * CT abdomen and pelvis showed small right pleural effusion as well as hepatomegaly and multiple layering gallstones and sigmoid diverticulosis. * start on IV solumedrol 40mg q8 * #Paroxysmal afib: on amiodarone, cardizem and lopressor. On coumadin. #Hypertension: on lopressor, cardizem and amiodarone. #Hyponatremia: Na is 134. Was 130 yesterday. #GERD: on PPI DVT prophylaxis: on coumadin. Monitor INR, with rate of 2-3. INR today is pending. Charges/Coding Visit Charges Inpatient E&M: 00655 Subs Hosp L2
[2025-01-23] MEDS: Warfarin (PBKC) 3 MG Tablet PO (17:00)
[2025-01-23 17:32] LABS: Prothrombin Time (Protime)PT. 24.3 SECONDS (11.7-14.9)
[2025-01-24] VITALS (11 sets, daily range): BP systolic 121–137; BP diastolic 55–68; PULSE 61–68; RESP 16–28; TEMP 36.6–37.1; O2SAT 91–97
[2025-01-24] MEDS: 0.9% Saline Lock 10 ML Syringe IV ×4 (05:30→21:05)
[2025-01-24 05:46] LABS: Hematocrit 41.6 % (37-47); Hemoglobin 14.0 g/dL (12.0-15.0); Immature Granulocytes Count 0.140 X10^3/uL (0.0-0.0); Mean Corp Hgb Conc 33.7 g/dL (32-36); Mean Corpuscular Volume 85.6 fL (81-99); Mean Platelet Vol. 9.3 fl (6.2-12.0); NRBC Flagged by Analyzer 0 % (0-5); Platelet Count 319 K/mm3 (150-450); RBC Distribution Width CV 14.6 % (11.6-14.6); RBC Distribution Width SD 45.5 fl (35.1-43.9); Red Blood Count 4.86 M/mm3 (4.2-5.4); White Blood Count 17.2 K/mm3 (4.4-11.0)
[2025-01-24 06:47] LABS: Anion Gap 14 (5-15); BUN 21 mg/dL (4-19); BUN/Creat Ratio 28.0 RATIO (10-20); Calcium,Total 8.7 mg/dL (7.6-11.0); Carbon Dioxide 25.2 mmol/L (21.0-32.0); Chloride 96 mmol/L (98-108); Estimated Creatinine Clearance 40.96 ml/min (50-250); Glucose 152 mg/dL (70-99); Potassium 4.3 mmol/L (3.3-5.1)
[2025-01-24] MEDS: Calcium (Elemental) 500 MG Tablet PO (09:02)
[2025-01-24 09:03] LABS: Prothrombin Time (Protime)PT. 26.5 SECONDS (11.7-14.9)
[2025-01-24] MEDS: Potassium Chloride Oral Tablet 20 MEQ PO (09:05)
--- NOTE | 2025-01-24 09:58 | PN_ITS ---
Subjective Subjective Patient seen and examined with her nurse by her bedside. SHe had no active compalnts. SHe was on 2L of oxygen. SHe apparently felt short of breath during the night and required the 2L of oxygen, and requested that it be left on this morning. Review of systems is otherwise negative. Objective Data Objective Data Vital Signs: Vital Signs Temp Pulse Resp BP Pulse Ox O2 Del Method O2 Flow Rate 97.9 F 68 16 133/56 H 95 Nasal Cannula 2 01/24/25 08:28 01/24/25 09:07 01/24/25 08:28 01/24/25 09:07 01/24/25 08:28 01/24/25 08:32 01/24/25 08:32 Oxygen Flow Rate (L/min) 2 Oxygen Delivery Method Nasal Cannula Weight: 116 lb 9.992 oz Body Mass Index (BMI) 22.7 Intake & Output: Intake and Output for Last 24 Hours 01/22/25 01/23/25 01/24/25 23:59 23:59 23:59 Intake Total 700 / 920 770 / 950 180 / 180 Output Total 850 / 1000 250 / 250 Balance 700 / 820 -80 / -50 -70 / -70 Lab / Micro Data 01/24/25 05:00 01/24/25 05:00 Labs: Laboratory Results - last 24 hr 01/23/25 16:04: PT 24.3 H, INR 2.1 01/24/25 05:00: WBC 17.2 H, RBC 4.86, Hgb 14.0, Hct 41.6, MCV 85.6, MCH 28.8, MCHC 33.7, RDW Std Deviation 45.5 H, RDW Coeff of Angelo 14.6, Plt Count 319, MPV 9.3, Immature Gran % (Auto) 0.800, Neut % (Auto) 92.7 H, Lymph % (Auto) 3.9 L, [place] % (Auto) 2.5, Eos % (Auto) 0.0, Baso % (Auto) 0.1, Absolute Neuts (auto) 15.9 H, Absolute Lymphs (auto) 0.67 L, Nucleated RBC % 0, Sodium 135, Potassium 4.3, Chloride 96 L, Carbon Dioxide 25.2, Anion Gap 14, BUN 21 H, Creatinine 0.76, Estim Creat Clear Calc 40.96 L, Est GFR (MDRD) Non-Af 80, BUN/Creatinine Ratio 28.0 H, Glucose 152 H, Calcium 8.7 01/24/25 08:38: PT 26.5 H, INR 2.4 Micro: Microbiology 01/22/25 16:04 Mucosa - Nose SARS-CoV-2, Influenza & RSV (PCR) - Final Physical Exam Const alert, oriented x3, no apparent distress and average body habitus Constitutional Narrative: frail General Appearance: cooperative and comfortable HEENT normocephalic, head/scalp atraumatic, hearing grossly normal bilaterally, nasal mucous membranes and turbinates normal, moist oral mucous membranes and oropharynx normal Eyes PERRL, EOMs intact bilaterally and conjunctivae normal Neck full ROM, supple and no JVD Lymph Lymphatic: no lymphedema noted Chest inspection of chest normal Resp normal respiratory effort and no use of accessory muscles Resp Narrative: mildly diminished breath sounds bibasally, bilateral few crackles. On 2L of oxygen by nasal canula Cardio regular rate, regular rhythm, S1 normal heart sound, S2 normal heart sound, no murmurs and peripheral pulses 2+ throughout GI normal to inspection, nondistended, normoactive bowel sounds, soft to palpation, non-tender and non-distended Back/Spine normal ROM Extremity normal to inspection, full ROM, normal capillary refill, no clubbing, cyanosis or edema, no calf tenderness and no pedal edema General Extremity: no tenderness to palpation of joints or extremities Skin no rashes or lesions noted General Skin Exam: no breakdown Neuro no focal motor deficits and no sensory deficits noted Motor Exam: general weakness Psych mental status grossly normal, thought process normal, cooperative and affect normal Mood & Affect: flat affect Assessment & Plan Assessment/Plan (1) CHF exacerbation: PLAN: Plan #Hypoxia due to Acute exacerbation of heart failure with preserved EF and acute on chronic COPD exacerbation. * on 2L of oxygen. Uusally on room air at home. * BNP was elevated at 4301. 2D echo from November 2023 showed EF of 60% and pulmonary systolic pressure of 80mmHg consistent with severe pulmonary hypertension * on IV lasix 40mg bid * monitor intake and output * on breathing treatment with bronchodilators * repeat 2D echo shows EF of 60% and no regional wall motion abnormalities with normal left ventricular systolic function and pulmonary artery systolic pressure of 80 mmHg which is similar to previous echo. * titrate oxygen to maintain sats >90% * CT abdomen and pelvis showed small right pleural effusion as well as hepatomegaly and multiple layering gallstones and sigmoid diverticulosis. * start on IV solumedrol 40mg q8 * #Paroxysmal afib: on amiodarone, cardizem and lopressor. On coumadin. #Hypertension: on lopressor, cardizem and amiodarone. #Hyponatremia: resolved. Sodium is 135 today #GERD: on PPI DVT prophylaxis: on coumadin. Monitor INR, with rate of 2-3. INR today is 2.4 Charges/Coding Visit Charges Inpatient E&M: 79021 Subs Hosp L2
--- NOTE | 2025-01-24 11:00 | CASEMGMT ---
RN CHAVO called and spoke with [facility] Aminata TONY, phone: [phone], fax: [phone]. Patient has medical alert, aide services through [facility] 4hrs per week, and 9 meals from [employer]. Aminata requested discharge information be faxed when availlable.
--- NOTE | 2025-01-24 11:09 | CASEMGMT ---
Discharge Planning A list of?HH providers including quality and resource use data and consistent with the patient's preferred geographic region, medical needs, and insurance network was created in [employer] Guide.? This list was provided to the RN CHAVO. Gillian Galdamez, Discharge Planning Asst.
--- NOTE | 2025-01-24 13:18 | CASEMGMT ---
Addendum entered by Mayra Gaston 01/24/25 17:31: PEYTON TONY updated by [facility] that patient has been accepted with start of care planned for Monday. PEYTON TONY updated patient, patient voiced appreciation and had no futher questions. Green sheet placed on chart. Original Note: PEYTON TONY in to discuss needs at discharge. Patient states she would like HHC at discharge. HHC list provided to patient, patient prefers [facility]. Patient denied further needs at discharge. Patient had no further quesions. PEYTON TONY made referral to [facility], awaiting response.
[2025-01-24] MEDS: Warfarin (PBKC) 3 MG Tablet PO (17:12)
[2025-01-25] VITALS (7 sets, daily range): BP systolic 114–124; BP diastolic 71–79; PULSE 66–110; RESP 16–20; TEMP 36.6–36.9; O2SAT 93–98
[2025-01-25] MEDS: 0.9% Saline Lock 10 ML Syringe IV (05:54)
[2025-01-25 06:37] LABS: Hematocrit 46.3 % (37-47); Hemoglobin 15.6 g/dL (12.0-15.0); Immature Granulocytes Count 0.140 X10^3/uL (0.0-0.0); Mean Corp Hgb Conc 33.7 g/dL (32-36); Mean Corpuscular Volume 85.6 fL (81-99); Mean Platelet Vol. 8.7 fl (6.2-12.0); NRBC Flagged by Analyzer 0 % (0-5); Platelet Count 383 K/mm3 (150-450); RBC Distribution Width CV 14.7 % (11.6-14.6); RBC Distribution Width SD 46.2 fl (35.1-43.9); Red Blood Count 5.41 M/mm3 (4.2-5.4); White Blood Count 16.5 K/mm3 (4.4-11.0)
[2025-01-25 06:58] LABS: Anion Gap 14 (5-15); BUN 27 mg/dL (4-19); BUN/Creat Ratio 32.2 RATIO (10-20); Calcium,Total 8.8 mg/dL (7.6-11.0); Carbon Dioxide 27.4 mmol/L (21.0-32.0); Chloride 97 mmol/L (98-108); Estimated Creatinine Clearance 39.01 ml/min (50-250); Glucose 148 mg/dL (70-99); Potassium 4.1 mmol/L (3.3-5.1)
[2025-01-25 08:06] LABS: Prothrombin Time (Protime)PT. 28.7 SECONDS (11.7-14.9)
[2025-01-25] MEDS: Potassium Chloride Oral Tablet 20 MEQ PO (09:04)
[2025-01-25] MEDS: Calcium (Elemental) 500 MG Tablet PO (09:05)
[2025-01-25] MEDS: Polyethylene Glycol 3350 17 GM PACKET PO (09:33)
--- NOTE | 2025-01-25 13:44 | DS.PCM_ITS ---
Providers Date of Admission: 01/22/25 Date of Discharge: 01/25/25 Primary Care Physician: Dr. Wes Magallon MD Reason For Visit: COPD AND CHF EXACERBATION W/ HYPOXIA Diagnosis Discharge Diagnosis (1) CHF exacerbation: Status: Chronic Code(s): I50.9 - Heart failure, unspecified Plan #Hypoxia due to Acute exacerbation of heart failure with preserved EF and acute on chronic COPD exacerbation. * on 2L of oxygen. Uusally on room air at home. * BNP was elevated at 4301. 2D echo from November 2023 showed EF of 60% and pulmonary systolic pressure of 80mmHg consistent with severe pulmonary hypertension * on IV lasix 40mg bid * monitor intake and output * on breathing treatment with bronchodilators * repeat 2D echo shows EF of 60% and no regional wall motion abnormalities with normal left ventricular systolic function and pulmonary artery systolic pressure of 80 mmHg which is similar to previous echo. * titrate oxygen to maintain sats >90% * CT abdomen and pelvis showed small right pleural effusion as well as hepatomegaly and multiple layering gallstones and sigmoid diverticulosis. * start on IV solumedrol 40mg q8 * #Paroxysmal afib: on amiodarone, cardizem and lopressor. On coumadin. #Hypertension: on lopressor, cardizem and amiodarone. #Hyponatremia: resolved. Sodium is 135 today #GERD: on PPI DVT prophylaxis: on coumadin. Monitor INR, with rate of 2-3. INR today is 2.4 Medications at Discharge Home Medications calcium carbonate 600 mg PO DAILY SUPPLEMENT 06/19/19 multivitamin 1 tab PO DAILY SUPPLEMENT 06/19/19 albuterol sulfate 90 mcg/actuation aerosol inhaler 2 puff inhalation Q4H PRN SOB 01/09/20 omeprazole 20 mg capsule,delayed release 20 mg PO BID 12/05/24 potassium chloride 20 mEq tablet,extended release 20 meq PO QDAY 12/05/24 fluticasone propionate 50 mcg/actuation nasal spray,suspension 1 - 2 spray intranasal DAILY health maintnance 01/22/25 metoprolol tartrate 25 mg tablet 25 mg PO BID 01/22/25 warfarin 2 mg tablet See Rx Instructions PO .COMPLEX 01/22/25 warfarin 3 mg tablet 3 mg PO .COMPLEX 01/22/25 diltiazem HCl 240 mg capsule,extended release 24 hr 240 mg PO DAILY HEART #90 caps 01/24/25 furosemide 40 mg tablet (Lasix) 40 mg PO BID #60 tabs 01/25/25 potassium chloride 20 mEq tablet,extended release(part/cryst) (Klor-Con M) 20 meq PO DAILY #30 tabs 01/25/25 prednisone 20 mg tablet 40 mg (2 x 20 mg) PO DAILY #10 tabs 01/25/25 Hospital Course Operations None Procedures 2-D Echocardiogram Summary of Care Provided Minutes Spent on Discharge: 45 Hospital Course: Patient is a 79-year-old female with past medical history as outlined was admitted through the ED on 01/22/2025 with complaint of fever and chills as well as nausea and vomiting. She does not wear oxygen at home. She says she was fine for most of the day before admission but subsequently developed the symptoms on the morning of admission. She had assisted epigastric discomfort and shortness of breath. She was hypoxic with a saturation going down to the mid 80s and also had a low-grade fever. She otherwise was normotensive and in normal sinus rhythm. Chest x-ray showed cardiomegaly with vascular congestion consistent with CHF. CT of the abdomen and pelvis showed gallstones and hepatomegaly. BNP was elevated at 09/05/2000. He was admitted to be managed for acute exacerbation of heart failure and possible COPD exacerbation. She was started on IV Lasix for diuresis. She was also started on IV Solu-Medrol. Her shortness of breath improved and she felt much better. She was weaned off of the oxygen to room air. She also worked with therapy and did well. She remained stable and was discharged on 01/25/2025 on p.o. furosemide 40 mg twice daily with potassium supplementation. She was also discharged on p.o. prednisone 40 mg daily for 5-day course. Of note 2D echo done from 2023 EF of 60% and with no regional wall motion abnormalities with pulmonary artery systolic pressure of 80 mmHg which was likely contributing to her shortness of breath. This was similar to previous echoes. 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 Patient seen and examined prior to discharge. She had no active complaints and had an uneventful night. Review of systems otherwise negative. Labs and vitals reviewed. Her medication regimen reconciled. Physical Exam Const alert, oriented x3, no apparent distress and average body habitus Constitutional Narrative: frail General Appearance: cooperative and comfortable HEENT normocephalic, head/scalp atraumatic, hearing grossly normal bilaterally, nasal mucous membranes and turbinates normal and moist oral mucous membranes Mouth: oral and palatal mucosa normal Eyes PERRL, EOMs intact bilaterally and conjunctivae normal Neck full ROM, supple and no JVD Lymph Lymphatic: no lymphedema noted Chest inspection of chest normal Resp Resp Narrative: mildly diminished breath sounds bibasally, bilateral few crackles. On room air. Cardio regular rate, regular rhythm, S1 normal heart sound, S2 normal heart sound, no murmurs and peripheral pulses 2+ throughout GI normal to inspection, nondistended, normoactive bowel sounds, soft to palpation, non-tender and non-distended Back/Spine normal ROM Extremity normal to inspection, full ROM, normal capillary refill, no clubbing, cyanosis or edema, no calf tenderness and no pedal edema General Extremity: no tenderness to palpation of joints or extremities Skin no rashes or lesions noted General Skin Exam: no breakdown Neuro oriented x3, CN's II-XII intact bilaterally, moves all extremities, no focal motor deficits and no sensory deficits noted Sensorium / Orientation: awake and alert Motor Exam: general weakness Psych mental status grossly normal, thought process normal, cooperative and affect normal Mood & Affect: flat affect Weight / BMI Weight Weight: 116 lb 9.992 oz Body Mass Index (BMI) 22.7 ABG / Lab / Microbiology Data 01/25/25 06:28 01/25/25 06:28 Laboratory: Laboratory Results - last 24 hr 01/25/25 06:28: WBC 16.5 H, RBC 5.41 H, Hgb 15.6 H, Hct 46.3, MCV 85.6, MCH 28.8, MCHC 33.7, RDW Std Deviation 46.2 H, RDW Coeff of Angelo 14.7 H, Plt Count 383, MPV 8.7, Immature Gran % (Auto) 0.800, Neut % (Auto) 89.4 H, Lymph % (Auto) 5.2 L, [place] % (Auto) 4.5, Eos % (Auto) 0.0, Baso % (Auto) 0.1, Absolute Neuts (auto) 14.8 H, Absolute Lymphs (auto) 0.86, Nucleated RBC % 0, PT 28.7 H, INR 2.6, Sodium 138, Potassium 4.1, Chloride 97 L, Carbon Dioxide 27.4, Anion Gap 14, BUN 27 H, Creatinine 0.84, Estim Creat Clear Calc 39.01 L, Est GFR (MDRD) Non-Af 71, BUN/Creatinine Ratio 32.2 H, Glucose 148 H, Calcium 8.8 Microbiology: Microbiology 01/22/25 16:04 Mucosa - Nose SARS-CoV-2, Influenza & RSV (PCR) - Final D/C Instructions Discharge Activity: Return to Normal Activity Weight Bearing Status: Weight bearing as tolerated Call your doctor if you observe: Fever of 101 or Higher, Shortness of breath, Dizziness, Swelling in the ankles and Chest pain DC O2, CPAP, BIPAP Needs Home O2 Discharge instructions: No DC home with Oxygen: No Meaningful Use Info Meaningful Use Meaningful Use Diagnoses (Choose all that apply): CHF CHF NEHA/ARB ordered at discharge?: No Reason NEHA/ARB not ordered?: Not indicated Documented LVEF (%): 60 Discharge Plan Admission Admit Date/Time: 01/22/25 16:50 Primary Reason for Your Visit: COPD exacerbation, CHF exacerbation Attending Provider: Christine Borges Primary Care Provider: Wes Magallon Consulting Providers: Philpi Kamara Instructions Patient Instructions: Heart Failure Flare Up Signs, Coping with Heart Failure, Heart Failure Dc, COPD Controlled Breathing Dc Discharge Orders/Prescriptions Prescriptions: New furosemide [Lasix] 40 mg tablet 40 mg PO BID Qty: 60 2RF potassium chloride [Klor-Con M20] 20 mEq tablet,ER particles/crystals 20 meq PO DAILY Qty: 30 2RF prednisone 20 mg tablet 40 mg PO DAILY Qty: 10 0RF Continued multivitamin Tablet 1 tab PO DAILY calcium carbonate 600 mg calcium (1,500 mg) tablet 600 mg PO DAILY albuterol sulfate 90 mcg/actuation HFA aerosol inhaler 2 puff INHALATION Q4H PRN (Reason: SOB) omeprazole 20 mg capsule,delayed release(DR/EC) 20 mg PO BID potassium chloride 20 mEq tablet extended release 20 meq PO QDAY warfarin 3 mg tablet 3 mg PO .COMPLEX Rx Instructions: TAKE ONE, 3 MG TABLET ON MONDAY, MONDAY, MONDAY, MONDAY, AND MONDAY; warfarin 2 mg tablet See Rx Instructions PO .COMPLEX Rx Instructions: TAKE 1 TABLET BY MOUTH ON MONDAY AND MONDAY AND TAKE 3 MG ALL OTHER DAYS OR DIRECTED PENDING LAB RESULTS metoprolol tartrate 25 mg tablet 25 mg PO BID fluticasone propionate 50 mcg/actuation spray,suspension 1 - 2 spray INTRANASAL DAILY diltiazem HCl 240 mg capsule,extended release 24hr 240 mg PO DAILY Qty: 90 3RF Rx Instructions: TAKE 1 CAPSULE EVERY DAY Discontinued furosemide 40 mg tablet 40 mg PO QDAY PRN (Reason: diuretic) Patient Comments: DOES NOT TAKE ALL THE TIME ONLY WHEN SHE FEELS LIKE SHE NEEDS IT OF 01/22/2025 amiodarone 200 mg tablet 100 mg PO DAILY Qty: 45 3RF Referrals / Follow Up: Wes Magallon MD [Primary Care Provider] - Within 1 Week Disposition Disposition (needs filled in before D/C Order can be placed): Home, Self Care Charges/Coding Visit Charges Inpatient E&M: 93720 Disch Hosp >30min
--- NOTE | 2025-01-25 13:50 | CASEMGMT ---
DC Instructions faxed to [facility] at this time
== END 2025-01-25 14:34 | disposition home health service (06) | DRG 291 ==
LOC: ED 16:52 → PCU 17:13
PROVIDERS: Admitting Provider Hospitalist; Emergency Provider Emergency Medicine; PCP Family Medicine; Visit Provider Student in an Organized Health Care Education/Training Program
DX: I11.0 Hypertensive heart disease with heart failure (principal); I50.33 Acute on chronic diastolic (congestive) heart failure; E87.1 Hypo-osmolality and hyponatremia; J44.1 Chronic obstructive pulmonary disease with (acute) exacerbation; Z79.01 Long term (current) use of anticoagulants; I48.0 Paroxysmal atrial fibrillation; E78.2 Mixed hyperlipidemia; K21.9 Gastro-esophageal reflux disease without esophagitis; R09.02 Hypoxemia; Z90.710 Acquired absence of both cervix and uterus; Z79.899 Other long term (current) 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; Z79.51 Long term (current) use of inhaled steroids
CPT/HCPCS: 36415; 71046; 74177; 80048; 80053; 81001; 83690; 83880; 84145; 85025; 85027; 85610; 87631; 94640; 94668; 97116; 97162; 97166; 97530; 97535; 97802; 99285; Q9967; A4216; J1938; J2405

== ENCOUNTER → 2025-03-04 | Outpatient (CLI) | payer MEDICARE, MEDICAID, SELFPAY ==
--- OUTSIDE RECORDS SUMMARY | 2025-02-21 14:24 | XMS RPT_ITS ---
Demographics Address [address] [place] [address] Preferred Language UNK Marital Status Mandaen Affiliation Unknown Race Ethnic Group Unknown Author Name Auto Generated Organization OHIP Care Team Providers Care Land Measurer Name Role Phone WES MAGALLON Primary Care Unavailable MIMI ESCOBAR Attending Unavailable IRENE, WES Tyler Primary Care Unavailable IRENE, WES Tyler Primary Care Unavailable IRENE, WES Tyler Primary Care Unavailable DALILA JENSEN Attending Unavailable IRENE, WES Tyler Primary Care Unavailable IRENE, WES Tyler Primary Care Unavailable IRENE, WES Tyler Primary Care Unavailable IRENE, WES Tyler Referring Unavailable IRENE, WES Tyler Primary Care Unavailable IRENE, WES Tyler Primary Care Unavailable IRENE, WES Tyler Referring Unavailable IRENE, WES Tyler Primary Care Unavailable IRENE, WES Tyler Attending Unavailable IRENE, WES Tyler Primary Care Unavailable IRENE, WES Tyler Primary Care Unavailable IRENE, WES Tyler Primary Care Unavailable IREEN, WES Tyler Primary Care Unavailable IRENE, WES Tyler Primary Care Unavailable IRENE, WES Tyler Referring Unavailable IRENE, WES Tyler Primary Care Unavailable IRENE, WES Tyler Primary Care Unavailable IRENE, WES Tyler Primary Care Unavailable PROBLEMS DATE TYPE CONDITION / CODE ATTENDING STATUS [facility] 05/31/2024 Active Pulmonary emphys veronica, unspecified emphysema type (HCC) / J43.9(ICD-10) DALILA JENSEN Active [facility] 02/05/2025 Active Acute on chronic congestive heart failure, unspecified heart failure type (HCC) / I50.9(ICD-10) DALILA JENSEN Active [facility] 05/31/2024 Active Rheumatoid arthr itis, involving unspecified site, unspecified whether rheumatoid factor present (HCC) / M06.9(ICD-10) MIMI ESCOBAR Active [facility] 05/31/2024 Active Chronic obstruct aj pulmonary disease, unspecified COPD type (HCC) / J44.9(ICD-10) MIMI ESCOBAR Active [facility] 06/23/2023 Active Thyroid nodule / E04.1(ICD-10) MIMI ESCOBAR Active [facility] 05/10/2023 Active Iron deficiency anemia due to chronic blood loss / D50.0(ICD-10) MARKUS ESCOBARLINE Michelle Active [facility] 11/08/2022 Active Stage 3 chronic kidney disease, unspecified whether stage 3a or 3b CKD (HCC) / N18.30(ICD-10) PATRICIAMARKUS PEREZRISHABH Martinez Active [facility] 02/02/2022 Active Hypertension, es sential / I10(ICD-10) PATRICIAMARKUS PEREZLINE Michelle Active [facility] 02/02/2022 Active Pure hypercholes terolemia / E78.00(ICD-10) CEMENAMIMI A Active [facility] 05/11/2021 Active Pulmonary hypert ension (HCC) / I27.20(ICD-10) CEMENAMIMI A Active [facility] 09/25/2020 Active Prediabetes / R73.03(ICD-10) CEMENAMIMI A Active [facility] 06/23/2015 Active Chronic anticoag ulation / Z79.01(ICD-10) PATRICIAMARKUS PEREZRISHABH Martinez Active [facility] 12/13/2024 Active Medicare annual wellness visit, subsequent / Z00.00(ICD-10) CEMENAMIMI A Active [facility] 12/13/2024 Active Screening for de pression / Z13.31(ICD-10) CEMARKUSMIMI A Active [facility] 12/13/2024 Active Encounter for sc reening examination for other mental health and behavioral disorders / Z13.39(ICD-10) CEMENAMIMI A Active [facility] 12/13/2024 Active GERD without eso phagitis / K21.9(ICD-10) CE MIMI A Active [facility] 12/13/2024 Active Fatigue, unspeci fied type / R53.83(ICD-10) CE MIMI A Active [facility] 12/13/2024 Active Hypotension, uns pecified hypotension type / I95.9(ICD-10) MIMI ESCOBAR Active [facility] 02/02/2022 Active Paroxysmal atria l fibrillation (HCC) / I48.0(ICD-10) NA Active [facility] 02/02/2022 Active Hyperlipidemia, unspecified hyperlipidemia type / E78.5(ICD-10) NA Active [facility] 05/31/2024 Active Chronic obstruct aj pulmonary disease with acute lower respiratory infection (HCC) / J44.0(ICD-10) WES MAGALLON Active [facility] 02/15/2023 Active 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 / K22.70(ICD-10) WES MAGALLON [facility] 09/19/2022 Active 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) / I50.813(ICD-10) WES MAGALLON Active [facility] 03/23/2020 Active History of polym yalgia rheumatica / Z87.39(ICD-10) WES MAGALLON Active [facility] [place] 12/08/2008 Active Marfan's syndrom e / Q87.40(ICD-10) WES MAGALLON Active [facility] PROCEDURES No Procedure Records Found RESULTS PROGRESS Observed: 02/21/2025 4:08 PM Status: COMPLETED Source: [facility] HNO ID: [id number] Author: WES MAGALLON MD Service: ? Author Type: Physician Type: Progress Notes Filed: 02/21/2025 16:08 Note Text: agree PROGRESS Observed: 02/21/2025 2:52 PM Status: COMPLETED Source: [facility] HNO ID: [id number] Author: ABRAHAM POSADAS, PEYTON Service: ? Author Type: Registered Nurse Type: Progress Notes Filed: 02/21/2025 16:08 Note Text: patient had inr completed at [facility] patients inr is 2.0 (patients inr range is 2.0-3.0) patient is currently taking 2mg times [address] [facility] checked inr on 02/18 and got a level of 4.0 and patient was instructed to hold 2 doses then take 2mg Thurs and recheck today patients last dose change was on 03/05/24 due to a high level of 3.4 (dose at that time was 2mg Mon and 3mg all other days) patient has had no changes in medication and no uninstructed missed doses and no change in diet recommend: patient change coumadin to 3mg and 2mg all other days and recheck in 2 weeks (previous dose before 02/18 was 2mg Mon,Mon and 3mg all other days) patient has been scheduled for a 2 week follow up inr on 03/06/25 please review and advise on recommendation patient only needs called if provider does not agree with recommendation TRICIAN Observed: 02/18/2025 12:00 AM Status: COMPLETED Source: [facility] NIMISHA CEJA ([id number]) 1945 F Date Time Provider Department 02/18/25 WES MAGALLON [facility] During your visit today, we recorded the following information about you: Alma Delia Doyle RN 02/18/2025 1:11 PM Signed [facility] Nurse Smith calling with the following updates: 1) [facility] reports pt had resting heart rate of 118 today. Pt has A-Fib and on 3 medications for this. States pt had not taken her daily medications yet-takes them later in day. Pt is asymptomatic. 2) Nursing eval was completed. Will see pt for one more visit on 02/24/25 and most likely D/C pt. No call back needed to Smith if no new changes are made by PCP. PEYTON Voss William J, MD 02/18/2025 1:26 PM Signed Check hr when there for next visit and see what it is. If continues to be high, need to notify her neurologist. Alma Delia Doyle RN 02/18/2025 1:43 PM Signed [facility] Nurse Smith, given message below. Message also given to patient by this nurse. Alma Delia Doyle RN Allergies As of Date: 02/18/2025 Noted Allergy Reaction CRESTOR (ROSUVASTATIN CALCIUM) 01/19/2011 14 - Other: See Comments Comments: Myalgia. ATORVASTATIN 12/13/2024 14 - Other: See Comments 17 - Myalgia Comments: Fatigue, myalgia, and unsteady gait. IBUPROFEN 12/04/2008 14 - Other: See Comments Comments: dizzy PREVNAR 13 (PNEUMOC 13-CHU CONJ-D*07/27/2015 2 - Rash Comments: Presumed reaction to Prevnar. LATEX 12/08/2008 2 - Rash Comments: Local contact rash. Date Reviewed: 02/05/2025 Reviewed by: Jaqueline Person LPN - Fully Assessed Prescriptions as of 02/18/2025 - albuterol HFA (PROVENTIL HFA, VENTOLIN HFA) 90 mcg/actuation inhaler Inhale 2 puffs as instructed every 4 hours as needed for wheezing/shortness of breath. - furosemide (LASIX) 40 mg tablet Take one tablet in the morning. Take 1/2 tablet in the afternoon/evening. (Total of 60 mg daily). - omeprazole (PRILOSEC) 20 mg capsule Take 1 capsule by mouth two times a day. - metoprolol tartrate, short acting, (LOPRESSOR) 25 mg tablet Take 1 tablet by mouth two times a day. - warfarin (COUMADIN) 2 mg tablet take 2mg Mon, Wed and 3mg all other days or as directed pending lab results - warfarin (COUMADIN) 3 mg tablet Take 1 tablet by mouth daily as directed. - warfarin (COUMADIN) 3 mg tablet 2mg Mon Wed and 3mg all other days or as directed - warfarin (COUMADIN) 4 mg tablet 2mg Mon and 3mg all other days or as directed - warfarin (COUMADIN) 4 mg tablet 2mg Mon and 3mg all other days or as directed - gabapentin (NEURONTIN) 100 mg capsule Take 1 capsule by mouth two times a day for 180 days. - warfarin (COUMADIN) 3 mg tablet Take 1 tablet by mouth daily as directed. - Back Brace misc 1 Each once daily. Custom made - amiodarone (PACERONE) 200 mg tablet Take 0.5 tablets by mouth once daily. - dilTIAZem CD (CARDIZEM CD, CARTIA XT) 240 mg 24 hr capsule Take 240 mg by mouth once daily. - WALKER ROLLATOR SEAT WITH 6 WHEELS - RED Daily use R26.81 Gait instability (primary encounter diagnosis) - potassium chloride 20 mEq TbER Take 1 tablet by mouth once daily. [...] Epic data Problem List As Of Date 02/18/2025 Noted Resolved Dysphagia, unspecified(787.20) [R13.10] 05/08/2018 MARFAN'S [...] [R53.83] 11/24/2016 10/10/2017 Lung nodule [R91.1] 06/06/2019 05/31/2024 Chronic systolic heart failure (HCC) [I50.22] 11/21/2019 09/23/2020 Thoracic aorta atherosclerosis (HCC) [I70.0] 03/23/2020 09/23/2020 Pleural effusion, right [J90] 05/05/2020 11/08/2022 Thyroid nodule [E04.1] 05/11/2020 Prediabetes [R73.03] 09/25/2020 Pulmonary hypertension (HCC) [I27.20] 05/11/2021 Moderate mitral regurgitation [I34.0] 06/18/2021 Encounter for support and coordination of trans*07/20/2021 07/26/2022 Pleural effusion [J90] 01/31/2022 04/19/2022 Renal infarct (HCC) [N28.0] 04/19/2022 07/26/2022 Abnormal levels of other serum enzymes [R74.8] 11/11/2021 11/08/2022 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) [I50*09/03/2021 Acute respiratory failure (HCC) [J96.00] 07/22/2021 11/08/2022 Chronic obstructive pulmonary disease (HCC) [J4*04/28/2021 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] 07/22/2021 11/08/2022 Cyst of kidney, acquired [N28.1] 07/22/2021 11/08/2022 Dehydration [E86.0] 02/03/2022 11/08/2022 Deviation of international normalized ratio (IN*09/19/2022 11/08/2022 Elevated liver enzymes [R74.8] 11/11/2021 11/08/2022 Gram-negative bacteremia [R78.81] 02/03/2022 11/08/2022 History of hysterectomy [Z90.710] 09/19/2022 History of surgical procedure [Z98.890] 09/19/2022 11/08/2022 Hypokalemia [E87.6] 07/09/2021 11/08/2022 Hyponatremia [E87.1] 07/09/2021 11/08/2022 Hypophosphatemia [E83.39] 02/03/2022 11/08/2022 Hypoxemia [R09.02] 06/23/2021 11/08/2022 Hypoxia [R09.02] 06/23/2021 11/08/2022 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] 07/22/2021 11/08/2022 Leukocytosis [D72.829] 07/22/2021 11/08/2022 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 11/08/2022 Pneumonia [J18.9] 02/03/2022 11/08/2022 Pyothorax without fistula (HCC) [J86.9] 02/03/2022 11/08/2022 Rheumatoid arthritis, unspecified (HCC) [M06.9] 04/28/2021 Shortness of breath [R06.02] 09/16/2021 11/08/2022 Calculus of gallbladder without cholecystitis w*11/08/2022 History of empyema of pleura [Z87.09] 11/08/2022 History of compression fracture of spine [Z87.8*11/08/2022 Stage 3 chronic kidney disease (HCC) [N18.30] 11/08/2022 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 [K22.70] 02/15/2023 Abdominal bloating [R14.0] 01/10/2023 05/31/2024 Diagnosed: 05/10/2023 Iron deficiency anemia [D50.9] 01/10/2023 Diagnosed: 05/10/2023 Encounter Status:Closed by ALMA DELIA DOYLE on 02/18/25 FREDY Observed: 02/18/2025 12:00 AM Status: COMPLETED Source: [facility] NIMIS[facility] CEJA ([id number]) 1945 F Date Time Provider Department 02/18/25 WES MAGALLON [facility] During your visit today, we recorded the following information about you: Alma Delia Doyle RN 02/18/2025 12:53 PM Signed Smith [facility] Nurse calling. Pt had INR scheduled for 02/21 at [facility]. [facility] was able to complete for patient at her home today instead. Last INR: INR 4.0 02/18/2025 Current dose of coumadin is: 2mg Mon,Wed and 3mg all other days. Last date of dose change: 03/05/2024. Previous INR (date and result): 2.6 on 01/16/25 patient had inr completed 02/18/25 by [facility] Nurse patients inr is 4.0 (patients inr range is 2.0-3.0) patient is currently taking 2mg Mon,Wed and 3mg all other days patients last dose change was on 03/05/24 due to a high level of 3.4 (dose at that time was 2mg Mon and 3mg all other days) 1) Please call [facility] Nurse with orders. 2) Please call patient with orders also, Note: She is EMMONAK. 3) Does provider want pt to keep [facility] appt for INR on 02/21, or change? PEYTON Voss William J, MD 02/18/2025 1:27 PM Signed Keep the th appt for inr Hold today and tomorrow and resume 2 mg a day. Recheck the th Alma Delia Doyle RN 02/18/2025 1:45 PM Signed [facility] Nurse Smith, given message below. Message also given to patient by this nurse. Alma Delia Doyle RN Allergies As of Date: 02/18/2025 Noted Allergy Reaction CRESTOR (ROSUVASTATIN CALCIUM) 01/19/2011 14 - Other: See Comments Comments: Myalgia. ATORVASTATIN 12/13/2024 14 - Other: See Comments 17 - Myalgia Comments: Fatigue, myalgia, and unsteady gait. IBUPROFEN 12/04/2008 14 - Other: See Comments Comments: dizzy PREVNAR 13 (PNEUMOC 13-CHU CONJ-D*07/27/2015 2 - Rash Comments: Presumed reaction to Prevnar. LATEX 12/08/2008 2 - Rash Comments: Local contact rash. Date Reviewed: 02/05/2025 Reviewed by: Jaqueline Person LPN - Fully Assessed Reason for Visit: Anticoagulation [8] Primary Visit Diagnosis:Paroxysmal atrial fibrillation (HCC) [I48.0] Order(s):PROTHROMBIN TIME [SQPT] Order #: [id number] Prescriptions as of 02/18/2025 - albuterol HFA (PROVENTIL HFA, VENTOLIN HFA) 90 mcg/actuation inhaler Inhale 2 puffs as instructed every 4 hours as needed for wheezing/shortness of breath. - furosemide (LASIX) 40 mg tablet Take one tablet in the morning. Take 1/2 tablet in the afternoon/evening. (Total of 60 mg daily). - omeprazole (PRILOSEC) 20 mg capsule Take 1 capsule by mouth two times a day. - metoprolol tartrate, short acting, (LOPRESSOR) 25 mg tablet Take 1 tablet by mouth two times a day. - warfarin (COUMADIN) 2 mg tablet take 2mg Mon, Wed and 3mg all other days or as directed pending lab results - warfarin (COUMADIN) 3 mg tablet Take 1 tablet by mouth daily as directed. - warfarin (COUMADIN) 3 mg tablet 2mg Mon Wed and 3mg all other days or as directed - warfarin (COUMADIN) 4 mg tablet 2mg Mon and 3mg all other days or as directed - warfarin (COUMADIN) 4 mg tablet 2mg Mon and 3mg all other days or as directed - gabapentin (NEURONTIN) 100 mg capsule Take 1 capsule by mouth two times a day for 180 days. - warfarin (COUMADIN) 3 mg tablet Take 1 tablet by mouth daily as directed. - Back Brace misc 1 Each once daily. Custom made - amiodarone (PACERONE) 200 mg tablet Take 0.5 tablets by mouth once daily. - dilTIAZem CD (CARDIZEM CD, CARTIA XT) 240 mg 24 hr capsule Take 240 mg by mouth once daily. - WALKER ROLLATOR SEAT WITH 6 WHEELS - RED Daily use R26.81 Gait instability (primary encounter diagnosis) - potassium chloride 20 mEq TbER Take 1 tablet by mouth once daily. [...] Epic data Problem List As Of Date 02/18/2025 Noted Resolved Dysphagia, unspecified(787.20) [R13.10] 05/08/2018 MARFAN'S [...] [R53.83] 11/24/2016 10/10/2017 Lung nodule [R91.1] 06/06/2019 05/31/2024 Chronic systolic heart failure (HCC) [I50.22] 11/21/2019 09/23/2020 Thoracic aorta atherosclerosis (HCC) [I70.0] 03/23/2020 09/23/2020 Pleural effusion, right [J90] 05/05/2020 11/08/2022 Thyroid nodule [E04.1] 05/11/2020 Prediabetes [R73.03] 09/25/2020 Pulmonary hypertension (HCC) [I27.20] 05/11/2021 Moderate mitral regurgitation [I34.0] 06/18/2021 Encounter for support and coordination of trans*07/20/2021 07/26/2022 Pleural effusion [J90] 01/31/2022 04/19/2022 Renal infarct (HCC) [N28.0] 04/19/2022 07/26/2022 Abnormal levels of other serum enzymes [R74.8] 11/11/2021 11/08/2022 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) [I50*09/03/2021 Acute respiratory failure (HCC) [J96.00] 07/22/2021 11/08/2022 Chronic obstructive pulmonary disease (HCC) [J4*04/28/2021 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] 07/22/2021 11/08/2022 Cyst of kidney, acquired [N28.1] 07/22/2021 11/08/2022 Dehydration [E86.0] 02/03/2022 11/08/2022 Deviation of international normalized ratio (IN*09/19/2022 11/08/2022 Elevated liver enzymes [R74.8] 11/11/2021 11/08/2022 Gram-negative bacteremia [R78.81] 02/03/2022 11/08/2022 History of hysterectomy [Z90.710] 09/19/2022 History of surgical procedure [Z98.890] 09/19/2022 11/08/2022 Hypokalemia [E87.6] 07/09/2021 11/08/2022 Hyponatremia [E87.1] 07/09/2021 11/08/2022 Hypophosphatemia [E83.39] 02/03/2022 11/08/2022 Hypoxemia [R09.02] 06/23/2021 11/08/2022 Hypoxia [R09.02] 06/23/2021 11/08/2022 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] 07/22/2021 11/08/2022 Leukocytosis [D72.829] 07/22/2021 11/08/2022 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 11/08/2022 Pneumonia [J18.9] 02/03/2022 11/08/2022 Pyothorax without fistula (HCC) [J86.9] 02/03/2022 11/08/2022 Rheumatoid arthritis, unspecified (HCC) [M06.9] 04/28/2021 Shortness of breath [R06.02] 09/16/2021 11/08/2022 Calculus of gallbladder without cholecystitis w*11/08/2022 History of empyema of pleura [Z87.09] 11/08/2022 History of compression fracture of spine [Z87.8*11/08/2022 Stage 3 chronic kidney disease (HCC) [N18.30] 11/08/2022 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 [K22.70] 02/15/2023 Abdominal bloating [R14.0] 01/10/2023 05/31/2024 Diagnosed: 05/10/2023 Iron deficiency anemia [D50.9] 01/10/2023 Diagnosed: 05/10/2023 Encounter Status:Closed by JACKI ALVAREZ on 02/18/25 FREDY Observed: 02/07/2025 12:00 AM Status: COMPLETED Source: [facility] NIMISHA CEJA ([id number]) 1945 F Date Time Provider Department 02/07/25 DALILA JENSEN [facility] During your visit today, we recorded the following information about you: Dalila Jensen APRN.TRICIA 02/07/2025 11:35 AM Signed Can we please fax notes to Abraham at [facility] so that she is aware of hospitalization and recommended cardiology follow-up in 1-2 weeks. JANICE Matthews Jamie, LPN 02/07/2025 12:07 PM Signed OV note faxed to [facility]. Sharath Skinner LPN Allergies As of Date: 02/07/2025 Noted Allergy Reaction CRESTOR (ROSUVASTATIN CALCIUM) 01/19/2011 14 - Other: See Comments Comments: Myalgia. ATORVASTATIN 12/13/2024 14 - Other: See Comments 17 - Myalgia Comments: Fatigue, myalgia, and unsteady gait. IBUPROFEN 12/04/2008 14 - Other: See Comments Comments: dizzy PREVNAR 13 (PNEUMOC 13-CHU CONJ-D*07/27/2015 2 - Rash Comments: Presumed reaction to Prevnar. LATEX 12/08/2008 2 - Rash Comments: Local contact rash. Date Reviewed: 02/05/2025 Reviewed by: Jaqueline Person LPN - Fully Assessed Reason for Visit: OV notes faxed to [facility] [Other] Prescriptions as of 02/07/2025 - albuterol HFA (PROVENTIL HFA, VENTOLIN HFA) 90 mcg/actuation inhaler Inhale 2 puffs as instructed every 4 hours as needed for wheezing/shortness of breath. - furosemide (LASIX) 40 mg tablet Take one tablet in the morning. Take 1/2 tablet in the afternoon/evening. (Total of 60 mg daily). - omeprazole (PRILOSEC) 20 mg capsule Take 1 capsule by mouth two times a day. - metoprolol tartrate, short acting, (LOPRESSOR) 25 mg tablet Take 1 tablet by mouth two times a day. - warfarin (COUMADIN) 2 mg tablet take 2mg Mon, Wed and 3mg all other days or as directed pending lab results - warfarin (COUMADIN) 3 mg tablet Take 1 tablet by mouth daily as directed. - warfarin (COUMADIN) 3 mg tablet 2mg Mon Wed and 3mg all other days or as directed - warfarin (COUMADIN) 4 mg tablet 2mg Mon and 3mg all other days or as directed - warfarin (COUMADIN) 4 mg tablet 2mg Mon and 3mg all other days or as directed - gabapentin (NEURONTIN) 100 mg capsule Take 1 capsule by mouth two times a day for 180 days. - warfarin (COUMADIN) 3 mg tablet Take 1 tablet by mouth daily as directed. - Back Brace misc 1 Each once daily. Custom made - amiodarone (PACERONE) 200 mg tablet Take 0.5 tablets by mouth once daily. - dilTIAZem CD (CARDIZEM CD, CARTIA XT) 240 mg 24 hr capsule Take 240 mg by mouth once daily. - WALKER ROLLATOR SEAT WITH 6 WHEELS - RED Daily use R26.81 Gait instability (primary encounter diagnosis) - potassium chloride 20 mEq TbER Take 1 tablet by mouth once daily. [...] Epic data Problem List As Of Date 02/07/2025 Noted Resolved Dysphagia, unspecified(787.20) [R13.10] 05/08/2018 MARFAN'S [...] [R53.83] 11/24/2016 10/10/2017 Lung nodule [R91.1] 06/06/2019 05/31/2024 Chronic systolic heart failure (HCC) [I50.22] 11/21/2019 09/23/2020 Thoracic aorta atherosclerosis (HCC) [I70.0] 03/23/2020 09/23/2020 Pleural effusion, right [J90] 05/05/2020 11/08/2022 Thyroid nodule [E04.1] 05/11/2020 Prediabetes [R73.03] 09/25/2020 Pulmonary hypertension (HCC) [I27.20] 05/11/2021 Moderate mitral regurgitation [I34.0] 06/18/2021 Encounter for support and coordination of trans*07/20/2021 07/26/2022 Pleural effusion [J90] 01/31/2022 04/19/2022 Renal infarct (HCC) [N28.0] 04/19/2022 07/26/2022 Abnormal levels of other serum enzymes [R74.8] 11/11/2021 11/08/2022 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) [I50*09/03/2021 Acute respiratory failure (HCC) [J96.00] 07/22/2021 11/08/2022 Chronic obstructive pulmonary disease (HCC) [J4*04/28/2021 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] 07/22/2021 11/08/2022 Cyst of kidney, acquired [N28.1] 07/22/2021 11/08/2022 Dehydration [E86.0] 02/03/2022 11/08/2022 Deviation of international normalized ratio (IN*09/19/2022 11/08/2022 Elevated liver enzymes [R74.8] 11/11/2021 11/08/2022 Gram-negative bacteremia [R78.81] 02/03/2022 11/08/2022 History of hysterectomy [Z90.710] 09/19/2022 History of surgical procedure [Z98.890] 09/19/2022 11/08/2022 Hypokalemia [E87.6] 07/09/2021 11/08/2022 Hyponatremia [E87.1] 07/09/2021 11/08/2022 Hypophosphatemia [E83.39] 02/03/2022 11/08/2022 Hypoxemia [R09.02] 06/23/2021 11/08/2022 Hypoxia [R09.02] 06/23/2021 11/08/2022 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] 07/22/2021 11/08/2022 Leukocytosis [D72.829] 07/22/2021 11/08/2022 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 11/08/2022 Pneumonia [J18.9] 02/03/2022 11/08/2022 Pyothorax without fistula (HCC) [J86.9] 02/03/2022 11/08/2022 Rheumatoid arthritis, unspecified (HCC) [M06.9] 04/28/2021 Shortness of breath [R06.02] 09/16/2021 11/08/2022 Calculus of gallbladder without cholecystitis w*11/08/2022 History of empyema of pleura [Z87.09] 11/08/2022 History of compression fracture of spine [Z87.8*11/08/2022 Stage 3 chronic kidney disease (HCC) [N18.30] 11/08/2022 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 [K22.70] 02/15/2023 Abdominal bloating [R14.0] 01/10/2023 05/31/2024 Diagnosed: 05/10/2023 Iron deficiency anemia [D50.9] 01/10/2023 Diagnosed: 05/10/2023 Encounter Status:Closed by SHARATH SKINNER on 02/07/25 PROGRESS Observed: 02/05/2025 2:16 PM Status: COMPLETED Source: [facility] HNO ID: [id number] Author: DALILA JENSEN APRN.STITCH SEPARATOR Service: ? Author Type: Nurse Practitioner Type: Progress Notes Filed: 02/07/2025 11:35 Note Text: Transitional Care Management TCM Eligibility Documentation The following information was gathered during patient outreach 01/27/2025 Date of Outreach: Outreach Attempt 1: Contact Made Date of Discharge 01/25/2025 Provider Documentation Nimisha Ceja is a 79 year old female here today for a follow up from recent hospitalization. I have reviewed the patient's hospital course including discharge summary, discharge medications, and follow up needs with the patient and any family members present at today's visit. Recording using ambient [employer] software for draft documentation of the visit was discussed with the patient/authorized malt liquors sales representative; all questions welcomed and answered. Patient/authorized malt liquors sales representative agreed to proceed Subjective Recent Hospitalization: - Nimisha Ceja presented to the ED with fever and chills; family members noted she was shaking all over. - Diagnosed with fluid on the lungs and a COPD exacerbation. - Required supplemental oxygen due to hypoxemia; oxygen levels normalized prior to discharge. - Initiated on furosemide 40 mg BID and potassium supplementation during hospitalization. - Nimisha reports improved breathing since discharge. Dizziness: - Intermittent dizziness since discharge. - Occurs primarily when standing after sitting for a period; necessitates use of a walker for stability. - Nimisha describes dizziness as off and on, with episodes varying in duration and intensity. - Denies dizziness when initially getting up in the morning. COPD: - Diagnosed with COPD; recent exacerbation during hospitalization. - Nimisha reports improved respiratory status since discharge. CHF: - Managed by neurologist Abraham at [facility]. - Scheduled for a follow-up appointment in approximately 5 months. - Previously taking furosemide 40 mg daily; increased to 40 mg BID post-hospitalization. - Denies chest pain, palpitations, or peripheral edema. - Home health services providing ongoing care; physical therapy deemed unnecessary by therapist. Dietary Habits: - Nimisha reports good appetite and regular bowel movements. - Denies hematochezia or melena. - Experiences occasional flatulence, attributing it to medication side effects. Constitutional: (-) decreased appetite Cardiovascular: (-) chest pain, (-) palpitations, (-) pedal edema Respiratory: (-) dyspnea Gastrointestinal: (+) flatulence, (-) hematochezia, (-) melena Neurological: (+) dizziness, (+) balance difficulty Imaging: - CT Scan: Possibly minimal pleural effusion and mild COPD changes noted. No significant abnormalities identified. Objective BP 118/72 Pulse 109 Wt 52.2 kg (115 lb) SpO2 96% BMI 23.50 kg/m? GENERAL: NAD, alert and oriented. SKIN: Unremarkable, no rash or skin lesions. HEAD: Normocephalic. EYES: EOMI, conjunctiva clear. OROPHARYNX: Lips, mucosa, and tongue normal, good dentition. No oral lesions noted. NECK: Supple, no lymphadenopathy, normal thyroid, no carotid bruits. LUNGS: Clear to auscultation bilaterally, no wheezes/rhonchi/rales. HEART: irregularly irregular. EXTREMITIES: Normal, no deformities, no skin discoloration, no edema. NEURO: Awake, alert and oriented x3, cranial nerves II-XII grossly intact, normal gait, no involuntary motions. Assessment AND Plan 1. Chronic obstructive pulmonary disease, unspecified COPD type (HCC) (J44.9) 2. Pulmonary emphysema, unspecified emphysema type (HCC) (J43.9) - Recent hospitalization for acute exacerbation; treated with bronchodilators and supplemental oxygen. - Breathing improved since discharge; no current dyspnea, chest pain, or palpitations. 3. Acute on chronic congestive heart failure, unspecified heart failure type (HCC) (I50.9) - Recent hospitalization for acute decompensation; low oxygen saturation and possible pulmonary edema noted during admission. - Currently on furosemide 40 mg BID and potassium supplementation. - Dizziness likely secondary to volume depletion from increased diuretic dose. - Educated patient on orthostatic hypotension and advised caution with position changes. - Follow-up with cardiology (Abraham at [facility]) was recommended within 1-2 weeks post-discharge; patient to be seen as soon as possible. Will go ahead and decrease lasix to 40 mg in the morning and 20 mg in the afternoon/evening. Recheck in 1 week. 4. Hypertension, essential (I10) Stable. 5. Pulmonary hypertension (HCC) (I27.20) Stable. Discussed treatment plan and patient voices understanding. Patient's questions answered appropriately. Medications and potential side effects were discussed and patient voices understanding. Return to the office as scheduled or as needed for worsening/no improvement. Dalila Jensen APRN.STITCH SEPARATOR CNOV Observed: 02/05/2025 2:00 PM Status: COMPLETED Source: [facility] NIMISHA CEJA ([id number]) 1945 F Date Time Provider Department 02/05/25 2:00 PM DALILA JENSEN During your visit today, we recorded the following information about you: Pulse Blood pressure Weight 109/minute 118/72 52.2 kg Dalila Jensen APRN.TRICIA 02/07/2025 11:35 AM Signed Transitional Care Management TCM Eligibility Documentation The following information was gathered during patient outreach 01/27/2025 Date of Outreach: Outreach Attempt 1: Contact Made Date of Discharge 01/25/2025 Provider Documentation Nimisha Ceja is a 79 year old female here today for a follow up from recent hospitalization. I have reviewed the patient's hospital course including discharge summary, discharge medications, and follow up needs with the patient and any family members present at today's visit. Recording using [employer] software for draft documentation of the visit was discussed with the patient/authorized malt liquors sales representative; all questions welcomed and answered. Patient/authorized malt liquors sales representative agreed to proceed Subjective Recent Hospitalization: - Nimisha Ceja presented to the ED with fever and chills; family members noted she was shaking all over. - Diagnosed with fluid on the lungs and a COPD exacerbation. - Required supplemental oxygen due to hypoxemia; oxygen levels normalized prior to discharge. - Initiated on furosemide 40 mg BID and potassium supplementation during hospitalization. - Nimisha reports improved breathing since discharge. Dizziness: - Intermittent dizziness since discharge. - Occurs primarily when standing after sitting for a period; necessitates use of a walker for stability. - Nimisha describes dizziness as off and on, with episodes varying in duration and intensity. - Denies dizziness when initially getting up in the morning. COPD: - Diagnosed with COPD; recent exacerbation during hospitalization. - Nimisha reports improved respiratory status since discharge. CHF: - Managed by neurologist Abraham at [facility]. - Scheduled for a follow-up appointment in approximately 5 months. - Previously taking furosemide 40 mg daily; increased to 40 mg BID post-hospitalization. - Denies chest pain, palpitations, or peripheral edema. - Home health services providing ongoing care; physical therapy deemed unnecessary by therapist. Dietary Habits: - Nimisha reports good appetite and regular bowel movements. - Denies hematochezia or melena. - Experiences occasional flatulence, attributing it to medication side effects. Constitutional: (-) decreased appetite Cardiovascular: (-) chest pain, (-) palpitations, (-) pedal edema Respiratory: (-) dyspnea Gastrointestinal: (+) flatulence, (-) hematochezia, (-) melena Neurological: (+) dizziness, (+) balance difficulty Imaging: - CT Scan: Possibly minimal pleural effusion and mild COPD changes noted. No significant abnormalities identified. Objective BP 118/72 Pulse 109 Wt 52.2 kg (115 lb) SpO2 96% BMI 23.50 kg/m? GENERAL: NAD, alert and oriented. SKIN: Unremarkable, no rash or skin lesions. HEAD: Normocephalic. EYES: EOMI, conjunctiva clear. OROPHARYNX: Lips, mucosa, and tongue normal, good dentition. No oral lesions noted. NECK: Supple, no lymphadenopathy, normal thyroid, no carotid bruits. LUNGS: Clear to auscultation bilaterally, no wheezes/rhonchi/rales. HEART: irregularly irregular. EXTREMITIES: Normal, no deformities, no skin discoloration, no edema. NEURO: Awake, alert and oriented x3, cranial nerves II-XII grossly intact, normal gait, no involuntary motions. Assessment AND Plan 1. Chronic obstructive pulmonary disease, unspecified COPD type (HCC) (J44.9) 2. Pulmonary emphysema, unspecified emphysema type (HCC) (J43.9) - Recent hospitalization for acute exacerbation; treated with bronchodilators and supplemental oxygen. - Breathing improved since discharge; no current dyspnea, chest pain, or palpitations. 3. Acute on chronic congestive heart failure, unspecified heart failure type (HCC) (I50.9) - Recent hospitalization for acute decompensation; low oxygen saturation and possible pulmonary edema noted during admission. - Currently on furosemide 40 mg BID and potassium supplementation. - Dizziness likely secondary to volume depletion from increased diuretic dose. - Educated patient on orthostatic hypotension and advised caution with position changes. - Follow-up with cardiology (Abraham [facility]) was recommended within 1-2 weeks post-discharge; patient to be seen as soon as possible. Will go ahead and decrease lasix to 40 mg in the morning and 20 mg in the afternoon/evening. Recheck in 1 week. 4. Hypertension, essential (I10) Stable. 5. Pulmonary hypertension (HCC) (I27.20) Stable. Discussed treatment plan and patient voices understanding. Patient's questions answered appropriately. Medications and potential side effects were discussed and patient voices understanding. Return to the office as scheduled or as needed for worsening/no improvement. Dalila Jensen APRN.Dalila Hutton APRN.CNP 02/05/2025 2:57 PM Signed Decrease the lasix to 40 mg in the morning and 20 mg in the afternoon/evening. Recheck in 1 week. Allergies As of Date: 02/05/2025 Noted Allergy Reaction CRESTOR (ROSUVASTATIN CALCIUM) 01/19/2011 14 - Other: See Comments Comments: Myalgia. ATORVASTATIN 12/13/2024 14 - Other: See Comments 17 - Myalgia Comments: Fatigue, myalgia, and unsteady gait. IBUPROFEN 12/04/2008 14 - Other: See Comments Comments: dizzy PREVNAR 13 (PNEUMOC 13-CHU CONJ-D*07/27/2015 2 - Rash Comments: Presumed reaction to Prevnar. LATEX 12/08/2008 2 - Rash Comments: Local contact rash. Date Reviewed: 02/05/2025 Reviewed by: Jaqueline Person LPN - Fully Assessed Reason for Visit: Hospital Discharge [414] Primary Visit Diagnosis:Chronic obstructive pulmonary disease, unspecified COPD type (HCC) [J44.9] Other Visit Diagnoses:Acute on chronic congestive heart failure, unspecified heart failure type (HCC) [I50.9] Pulmonary emphysema, unspecified emphysema type (HCC) [J43.9] Hypertension, essential [I10] Pulmonary hypertension (HCC) [I27.20] Order(s):albuterol HFA (PROVENTIL HFA, VENTOLIN HFA) 90 mcg/actuation inhalerInhale 2 puffs as instructed every 4 hours as needed for wheezing/shortness of breath.Disp: 8.5 gRfl: 2 furosemide (LASIX) 40 mg tabletTake one tablet in the morning. Take 1/2 tablet in the afternoon/evening. (Total of 60 mg daily).Disp: Rfl: Prescriptions as of 02/07/2025 - albuterol HFA (PROVENTIL HFA, VENTOLIN HFA) 90 mcg/actuation inhaler Inhale 2 puffs as instructed every 4 hours as needed for wheezing/shortness of breath. - furosemide (LASIX) 40 mg tablet Take one tablet in the morning. Take 1/2 tablet in the afternoon/evening. (Total of 60 mg daily). - omeprazole (PRILOSEC) 20 mg capsule Take 1 capsule by mouth two times a day. - metoprolol tartrate, short acting, (LOPRESSOR) 25 mg tablet Take 1 tablet by mouth two times a day. - warfarin (COUMADIN) 2 mg tablet take 2mg Mon, Wed and 3mg all other days or as directed pending lab results - warfarin (COUMADIN) 3 mg tablet Take 1 tablet by mouth daily as directed. - warfarin (COUMADIN) 3 mg tablet 2mg Mon Wed and 3mg all other days or as directed - warfarin (COUMADIN) 4 mg tablet 2mg Mon and 3mg all other days or as directed - warfarin (COUMADIN) 4 mg tablet 2mg Mon and 3mg all other days or as directed - gabapentin (NEURONTIN) 100 mg capsule Take 1 capsule by mouth two times a day for 180 days. - warfarin (COUMADIN) 3 mg tablet Take 1 tablet by mouth daily as directed. - Back Brace misc 1 Each once daily. Custom made - amiodarone (PACERONE) 200 mg tablet Take 0.5 tablets by mouth once daily. - dilTIAZem CD (CARDIZEM CD, CARTIA XT) 240 mg 24 hr capsule Take 240 mg by mouth once daily. - WALKER ROLLATOR SEAT WITH 6 WHEELS - RED Daily use R26.81 Gait instability (primary encounter diagnosis) - potassium chloride 20 mEq TbER Take 1 tablet by mouth once daily. [...] Epic data Problem List As Of Date 02/05/2025 Noted Resolved Dysphagia, unspecified(787.20) [R13.10] 05/08/2018 MARFAN'S [...] [R53.83] 11/24/2016 10/10/2017 Lung nodule [R91.1] 06/06/2019 05/31/2024 Chronic systolic heart failure (HCC) [I50.22] 11/21/2019 09/23/2020 Thoracic aorta atherosclerosis (HCC) [I70.0] 03/23/2020 09/23/2020 Pleural effusion, right [J90] 05/05/2020 11/08/2022 Thyroid nodule [E04.1] 05/11/2020 Prediabetes [R73.03] 09/25/2020 Pulmonary hypertension (HCC) [I27.20] 05/11/2021 Moderate mitral regurgitation [I34.0] 06/18/2021 Encounter for support and coordination of trans*07/20/2021 07/26/2022 Pleural effusion [J90] 01/31/2022 04/19/2022 Renal infarct (HCC) [N28.0] 04/19/2022 07/26/2022 Abnormal levels of other serum enzymes [R74.8] 11/11/2021 11/08/2022 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) [I50*09/03/2021 Acute respiratory failure (HCC) [J96.00] 07/22/2021 11/08/2022 Chronic obstructive pulmonary disease (HCC) [J4*04/28/2021 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] 07/22/2021 11/08/2022 Cyst of kidney, acquired [N28.1] 07/22/2021 11/08/2022 Dehydration [E86.0] 02/03/2022 11/08/2022 Deviation of international normalized ratio (IN*09/19/2022 11/08/2022 Elevated liver enzymes [R74.8] 11/11/2021 11/08/2022 Gram-negative bacteremia [R78.81] 02/03/2022 11/08/2022 History of hysterectomy [Z90.710] 09/19/2022 History of surgical procedure [Z98.890] 09/19/2022 11/08/2022 Hypokalemia [E87.6] 07/09/2021 11/08/2022 Hyponatremia [E87.1] 07/09/2021 11/08/2022 Hypophosphatemia [E83.39] 02/03/2022 11/08/2022 Hypoxemia [R09.02] 06/23/2021 11/08/2022 Hypoxia [R09.02] 06/23/2021 11/08/2022 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] 07/22/2021 11/08/2022 Leukocytosis [D72.829] 07/22/2021 11/08/2022 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 11/08/2022 Pneumonia [J18.9] 02/03/2022 11/08/2022 Pyothorax without fistula (HCC) [J86.9] 02/03/2022 11/08/2022 Rheumatoid arthritis, unspecified (HCC) [M06.9] 04/28/2021 Shortness of breath [R06.02] 09/16/2021 11/08/2022 Calculus of gallbladder without cholecystitis w*11/08/2022 History of empyema of pleura [Z87.09] 11/08/2022 History of compression fracture of spine [Z87.8*11/08/2022 Stage 3 chronic kidney disease (HCC) [N18.30] 11/08/2022 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 [K22.70] 02/15/2023 Abdominal bloating [R14.0] 01/10/2023 05/31/2024 Diagnosed: 05/10/2023 Iron deficiency anemia [D50.9] 01/10/2023 Diagnosed: 05/10/2023 Other instructions from your clinician: Decrease the lasix to 40 mg in the morning and 20 mg in the afternoon/evening. Recheck in 1 week. Prescriptions ordered this encounter Disp Refills Start End ALBUTEROL SULFATE HFA 90 MCG/ACTUATI* 8.5 g 2 02/05/2025 Cmt: Generic or brand: dispense inhaler preferred by patient/insurance unless ERIN flag is selected. Route: INH Sig: Inhale 2 puffs as instructed every 4 hours as needed for wheezing/shortness of breath. FUROSEMIDE 40 MG TABLET 02/05/2025 Class: Med Update Sig: Take one tablet in the morning. Take 1/2 tablet in the afternoon/evening. (Total of 60 mg daily). Medications Discontinued During This Encounter Prescriptions - albuterol HFA (PROVENTIL HFA, VENTOLIN HFA) 90 mcg/actuation inhaler (Discontinued) Inhale 2 puffs as instructed every 4 hours as needed for wheezing/shortness of breath. - furosemide (LASIX) 40 mg tablet (Discontinued) Take 1 tablet by mouth once daily. Level of Service: [facility] F2F 14 JAMI D DISCHARGE [00856] Encounter Status:Closed by DALILA JENSEN on 02/07/25 FREDY Observed: 02/04/2025 12:00 AM Status: COMPLETED Source: [facility] NIMISHA CEJA ([id number]) 1945 F Date Time Provider Department 02/04/25 WES MAGALLON [facility] During your visit today, we recorded the following information about you: Alma Delia Doyle, RN 02/04/2025 11:[address] [facility] STACY Nurse calling to give pt update. Pt has HOSP Follow Up with Dalila Jensen CNP tomorrow. Maggie reports pt's BP sitting today was 110/62 and standing was 100/60. Pt experiences dizziness at times when standing up or with certain movements. Reports pt is taking Lasix 80 mg daily along with other BP medications, as ordered. No chest pain, Shortness of Breath or other sx's stated. Call nurse Maggie for any orders, at [phone] Will send this update to provider Dalila, since she will be seeing pt tomorrow. PEYTON Voss Christy, APRN.TRICIA 02/05/2025 4:25 PM Signed See office notes. Dalila Jensen APRN.CNP Allergies As of Date: 02/04/2025 Noted Allergy Reaction CRESTOR (ROSUVASTATIN CALCIUM) 01/19/2011 14 - Other: See Comments Comments: Myalgia. ATORVASTATIN 12/13/2024 14 - Other: See Comments 17 - Myalgia Comments: Fatigue, myalgia, and unsteady gait. IBUPROFEN 12/04/2008 14 - Other: See Comments Comments: dizzy PREVNAR 13 (PNEUMOC 13-CHU CONJ-D*07/27/2015 2 - Rash Comments: Presumed reaction to Prevnar. LATEX 12/08/2008 2 - Rash Comments: Local contact rash. Date Reviewed: 03/28/2024 Reviewed by: Mimi Escobar APRN.CNP - Fully Assessed Reason for Visit: Patient Update [1234] Prescriptions as of 02/05/2025 - albuterol HFA (PROVENTIL HFA, VENTOLIN HFA) 90 mcg/actuation inhaler Inhale 2 puffs as instructed every 4 hours as needed for wheezing/shortness of breath. - furosemide (LASIX) 40 mg tablet Take one tablet in the morning. Take 1/2 tablet in the afternoon/evening. (Total of 60 mg daily). - omeprazole (PRILOSEC) 20 mg capsule Take 1 capsule by mouth two times a day. - metoprolol tartrate, short acting, (LOPRESSOR) 25 mg tablet Take 1 tablet by mouth two times a day. - warfarin (COUMADIN) 2 mg tablet take 2mg Mon, Wed and 3mg all other days or as directed pending lab results - warfarin (COUMADIN) 3 mg tablet Take 1 tablet by mouth daily as directed. - warfarin (COUMADIN) 3 mg tablet 2mg Mon Wed and 3mg all other days or as directed - warfarin (COUMADIN) 4 mg tablet 2mg Mon and 3mg all other days or as directed - warfarin (COUMADIN) 4 mg tablet 2mg Mon and 3mg all other days or as directed - gabapentin (NEURONTIN) 100 mg capsule Take 1 capsule by mouth two times a day for 180 days. - warfarin (COUMADIN) 3 mg tablet Take 1 tablet by mouth daily as directed. - Back Brace misc 1 Each once daily. Custom made - amiodarone (PACERONE) 200 mg tablet Take 0.5 tablets by mouth once daily. - dilTIAZem CD (CARDIZEM CD, CARTIA XT) 240 mg 24 hr capsule Take 240 mg by mouth once daily. - WALKER ROLLATOR SEAT WITH 6 WHEELS - RED Daily use R26.81 Gait instability (primary encounter diagnosis) - potassium chloride 20 mEq TbER Take 1 tablet by mouth once daily. [...] Epic data Problem List As Of Date 02/04/2025 Noted Resolved Dysphagia, unspecified(787.20) [R13.10] 05/08/2018 MARFAN'S [...] [R53.83] 11/24/2016 10/10/2017 Lung nodule [R91.1] 06/06/2019 05/31/2024 Chronic systolic heart failure (HCC) [I50.22] 11/21/2019 09/23/2020 Thoracic aorta atherosclerosis (HCC) [I70.0] 03/23/2020 09/23/2020 Pleural effusion, right [J90] 05/05/2020 11/08/2022 Thyroid nodule [E04.1] 05/11/2020 Prediabetes [R73.03] 09/25/2020 Pulmonary hypertension (HCC) [I27.20] 05/11/2021 Moderate mitral regurgitation [I34.0] 06/18/2021 Encounter for support and coordination of trans*07/20/2021 07/26/2022 Pleural effusion [J90] 01/31/2022 04/19/2022 Renal infarct (HCC) [N28.0] 04/19/2022 07/26/2022 Abnormal levels of other serum enzymes [R74.8] 11/11/2021 11/08/2022 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) [I50*09/03/2021 Acute respiratory failure (HCC) [J96.00] 07/22/2021 11/08/2022 Chronic obstructive pulmonary disease (HCC) [J4*04/28/2021 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] 07/22/2021 11/08/2022 Cyst of kidney, acquired [N28.1] 07/22/2021 11/08/2022 Dehydration [E86.0] 02/03/2022 11/08/2022 Deviation of international normalized ratio (IN*09/19/2022 11/08/2022 Elevated liver enzymes [R74.8] 11/11/2021 11/08/2022 Gram-negative bacteremia [R78.81] 02/03/2022 11/08/2022 History of hysterectomy [Z90.710] 09/19/2022 History of surgical procedure [Z98.890] 09/19/2022 11/08/2022 Hypokalemia [E87.6] 07/09/2021 11/08/2022 Hyponatremia [E87.1] 07/09/2021 11/08/2022 Hypophosphatemia [E83.39] 02/03/2022 11/08/2022 Hypoxemia [R09.02] 06/23/2021 11/08/2022 Hypoxia [R09.02] 06/23/2021 11/08/2022 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] 07/22/2021 11/08/2022 Leukocytosis [D72.829] 07/22/2021 11/08/2022 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 11/08/2022 Pneumonia [J18.9] 02/03/2022 11/08/2022 Pyothorax without fistula (HCC) [J86.9] 02/03/2022 11/08/2022 Rheumatoid arthritis, unspecified (HCC) [M06.9] 04/28/2021 Shortness of breath [R06.02] 09/16/2021 11/08/2022 Calculus of gallbladder without cholecystitis w*11/08/2022 History of empyema of pleura [Z87.09] 11/08/2022 History of compression fracture of spine [Z87.8*11/08/2022 Stage 3 chronic kidney disease (HCC) [N18.30] 11/08/2022 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 [K22.70] 02/15/2023 Abdominal bloating [R14.0] 01/10/2023 05/31/2024 Diagnosed: 05/10/2023 Iron deficiency anemia [D50.9] 01/10/2023 Diagnosed: 05/10/2023 Encounter Status:Closed by DALILA JENSEN on 02/05/25 FREDY Observed: 01/29/2025 12:00 AM Status: COMPLETED Source: [facility] ([facility] MARCIALNIMISHA Graciela ([id number]) 1945 F Date Time Provider Department 01/29/25 [facility] During your visit today, we recorded the following information about you: Usman Martinez RN 01/29/2025 11:34 AM Signed Marquise- PT- [facility] reporting POC: saw patient one time only for 1 visit for home safety eval. Reports pt's HR today on POX was 107 and on automatic BP cuff was 125. Pt reports she has a-fib. Reports patient has CHF AND COPD but only had shortness of breath when going up stairs, no shortness of breath at rest. Wes Magallon MD 01/29/2025 11:38 AM Signed Are we able to have her check her hr now. If still above 100, needs to contact her heart Jaqueline Alcantara LPN 01/29/2025 12:43 PM Signed Call to Marquise and he is already gone from patient home. Nurse will be going to see patient tomorrow. Called patient and she does not have a BP monitor and pulse ox. States that was supposed to come in today for visit but having a transport issue. Denies chest pain or shortness of breath. States that she has all her medications except for her prednisone which she is hoping is delivered today. Yesterday we approved a SW consult to help her get monitor. Advised her to call office if starts to feel bad and she agrees. Wes Magallon MD 01/29/2025 1:47 PM Signed Noted. See what pulse rate is in am when they return Debbie Long MA 01/30/2025 3:56 PM Signed Left message on [facility] Clinical Equipment Operation Instructor, voicemail to call back with pulse rate. Spoke with Nimisha. She said the nurse told her, her oxygen was perfect, her blood pressure was fine. She could not remember what her pulse was. She is feel better today. Debbie Long MA January 30, 2025 3:56 PM Deana Coleman RN 01/30/2025 4:06 PM Signed Brandon from [facility] calls and states that patient's blood pressure was 108/72 and pulse was Irregular at 83 BPM. PEYTON Feng William J, MD 01/31/2025 8:27 AM Signed Noted. Looks ok. Allergies As of Date: 01/29/2025 Noted Allergy Reaction CRESTOR (ROSUVASTATIN CALCIUM) 01/19/2011 14 - Other: See Comments Comments: Myalgia. ATORVASTATIN 12/13/2024 14 - Other: See Comments 17 - Myalgia Comments: Fatigue, myalgia, and unsteady gait. IBUPROFEN 12/04/2008 14 - Other: See Comments Comments: dizzy PREVNAR 13 (PNEUMOC 13-CHU CONJ-D*07/27/2015 2 - Rash Comments: Presumed reaction to Prevnar. LATEX 12/08/2008 2 - Rash Comments: Local contact rash. Date Reviewed: 03/28/2024 Reviewed by: Mimi Escobar APRN.STITCH SEPARATOR - Fully Assessed Reason for Visit: PT- [facility] POC and pt update [Other] Prescriptions as of 01/31/2025 - albuterol HFA (PROVENTIL HFA, VENTOLIN HFA) 90 mcg/actuation inhaler Inhale 2 puffs as instructed every 4 hours as needed for wheezing/shortness of breath. - furosemide (LASIX) 40 mg tablet Take 1 tablet by mouth once daily. - omeprazole (PRILOSEC) 20 mg capsule Take 1 capsule by mouth two times a day. - metoprolol tartrate, short acting, (LOPRESSOR) 25 mg tablet Take 1 tablet by mouth two times a day. - warfarin (COUMADIN) 2 mg tablet take 2mg Mon, Wed and 3mg all other days or as directed pending lab results - warfarin (COUMADIN) 3 mg tablet Take 1 tablet by mouth daily as directed. - warfarin (COUMADIN) 3 mg tablet 2mg Mon Wed and 3mg all other days or as directed - warfarin (COUMADIN) 4 mg tablet 2mg Mon and 3mg all other days or as directed - warfarin (COUMADIN) 4 mg tablet 2mg Mon and 3mg all other days or as directed - gabapentin (NEURONTIN) 100 mg capsule Take 1 capsule by mouth two times a day for 180 days. - warfarin (COUMADIN) 3 mg tablet Take 1 tablet by mouth daily as directed. - Back Brace misc 1 Each once daily. Custom made - amiodarone (PACERONE) 200 mg tablet Take 0.5 tablets by mouth once daily. - dilTIAZem CD (CARDIZEM CD, CARTIA XT) 240 mg 24 hr capsule Take 240 mg by mouth once daily. - WALKER ROLLATOR SEAT WITH 6 WHEELS - RED Daily use R26.81 Gait instability (primary encounter diagnosis) - potassium chloride 20 mEq TbER Take 1 tablet by mouth once daily. [...] Epic data Problem List As Of Date 01/29/2025 Noted Resolved Dysphagia, unspecified(787.20) [R13.10] 05/08/2018 MARFAN'S [...] [R53.83] 11/24/2016 10/10/2017 Lung nodule [R91.1] 06/06/2019 05/31/2024 Chronic systolic heart failure (HCC) [I50.22] 11/21/2019 09/23/2020 Thoracic aorta atherosclerosis (HCC) [I70.0] 03/23/2020 09/23/2020 Pleural effusion, right [J90] 05/05/2020 11/08/2022 Thyroid nodule [E04.1] 05/11/2020 Prediabetes [R73.03] 09/25/2020 Pulmonary hypertension (HCC) [I27.20] 05/11/2021 Moderate mitral regurgitation [I34.0] 06/18/2021 Encounter for support and coordination of trans*07/20/2021 07/26/2022 Pleural effusion [J90] 01/31/2022 04/19/2022 Renal infarct (HCC) [N28.0] 04/19/2022 07/26/2022 Abnormal levels of other serum enzymes [R74.8] 11/11/2021 11/08/2022 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) [I50*09/03/2021 Acute respiratory failure (HCC) [J96.00] 07/22/2021 11/08/2022 Chronic obstructive pulmonary disease (HCC) [J4*04/28/2021 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] 07/22/2021 11/08/2022 Cyst of kidney, acquired [N28.1] 07/22/2021 11/08/2022 Dehydration [E86.0] 02/03/2022 11/08/2022 Deviation of international normalized ratio (IN*09/19/2022 11/08/2022 Elevated liver enzymes [R74.8] 11/11/2021 11/08/2022 Gram-negative bacteremia [R78.81] 02/03/2022 11/08/2022 History of hysterectomy [Z90.710] 09/19/2022 History of surgical procedure [Z98.890] 09/19/2022 11/08/2022 Hypokalemia [E87.6] 07/09/2021 11/08/2022 Hyponatremia [E87.1] 07/09/2021 11/08/2022 Hypophosphatemia [E83.39] 02/03/2022 11/08/2022 Hypoxemia [R09.02] 06/23/2021 11/08/2022 Hypoxia [R09.02] 06/23/2021 11/08/2022 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] 07/22/2021 11/08/2022 Leukocytosis [D72.829] 07/22/2021 11/08/2022 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 11/08/2022 Pneumonia [J18.9] 02/03/2022 11/08/2022 Pyothorax without fistula (HCC) [J86.9] 02/03/2022 11/08/2022 Rheumatoid arthritis, unspecified (HCC) [M06.9] 04/28/2021 Shortness of breath [R06.02] 09/16/2021 11/08/2022 Calculus of gallbladder without cholecystitis w*11/08/2022 History of empyema of pleura [Z87.09] 11/08/2022 History of compression fracture of spine [Z87.8*11/08/2022 Stage 3 chronic kidney disease (HCC) [N18.30] 11/08/2022 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 [K22.70] 02/15/2023 Abdominal bloating [R14.0] 01/10/2023 05/31/2024 Diagnosed: 05/10/2023 Iron deficiency anemia [D50.9] 01/10/2023 Diagnosed: 05/10/2023 Encounter Status:Closed by WES MAGALLON on 01/31/25 PROGRESS Observed: 01/27/2025 2:16 PM Status: COMPLETED Source: [facility] HNO ID: [id number] Author: ASHLEY JENKINS LPN Service: ? Author Type: Licensed Nurse Type: Progress Notes Filed: 01/27/2025 14:21 Note Text: TRANSITION CARE MANAGEMENT (TCM) INITIAL CONTACT Provider Action/FYI: Review Initial contact with patient post discharge, spoke to patient. Patient identified by name and . TCM Eligibility Documentation The following information was gathered during patient outreach 01/27/2025 Date of Outreach: Outreach Attempt 1: Contact Made Date of Discharge 01/25/2025 SUMMARY: -Pt discharged from [facility] on 01/25/25. -Follow up appointment on 01/29/25. -Medication review done yes. -Admitted for: CHF CONCERNS: CHF NEW MEDICATIONS: Yes, Pt did not remember but mentioned two were ordered. Pt thought one medication was steroids MEDS HELD/DISCONTINUED: No BRIEF HOSPITAL COURSE: CNPTOUTREACH Observed: 01/27/2025 12:00 AM Status: COMPLETED Source: [facility] NIMISHA CEJA ([id number]) 1945 F Date Time Provider Department 01/27/25 [facility] During your visit today, we recorded the following information about you: Ashley Jenkins LPN 01/27/2025 2:21 PM Signed TRANSITION CARE MANAGEMENT (TCM) INITIAL CONTACT Provider Action/FYI: Review Initial contact with patient post discharge, spoke to patient. Patient identified by name and . TCM Eligibility Documentation The following information was gathered during patient outreach 01/27/2025 Date of Outreach: Outreach Attempt 1: Contact Made Date of Discharge 01/25/2025 SUMMARY: -Pt discharged from [facility] on 01/25/25. -Follow up appointment on 01/29/25. -Medication review done yes. -Admitted for: CHF CONCERNS: CHF NEW MEDICATIONS: Yes, Pt did not remember but mentioned two were ordered. Pt thought one medication was steroids MEDS HELD/DISCONTINUED: No BRIEF HOSPITAL COURSE: Allergies As of Date: 01/27/2025 Noted Allergy Reaction CRESTOR (ROSUVASTATIN CALCIUM) 01/19/2011 14 - Other: See Comments Comments: Myalgia. ATORVASTATIN 12/13/2024 14 - Other: See Comments 17 - Myalgia Comments: Fatigue, myalgia, and unsteady gait. IBUPROFEN 12/04/2008 14 - Other: See Comments Comments: dizzy PREVNAR 13 (PNEUMOC 13-CHU CONJ-D*07/27/2015 2 - Rash Comments: Presumed reaction to Prevnar. LATEX 12/08/2008 2 - Rash Comments: Local contact rash. Date Reviewed: 03/28/2024 Reviewed by: Mimi Escobar APRN.STITCH SEPARATOR - Fully Assessed Reason for Visit: Transition Of Care [4074] Prescriptions as of 01/27/2025 - furosemide (LASIX) 40 mg tablet Take 1 tablet by mouth once daily. - omeprazole (PRILOSEC) 20 mg capsule Take 1 capsule by mouth two times a day. - metoprolol tartrate, short acting, (LOPRESSOR) 25 mg tablet Take 1 tablet by mouth two times a day. - warfarin (COUMADIN) 2 mg tablet take 2mg Mon, Wed and 3mg all other days or as directed pending lab results - warfarin (COUMADIN) 3 mg tablet Take 1 tablet by mouth daily as directed. - warfarin (COUMADIN) 3 mg tablet 2mg Mon Wed and 3mg all other days or as directed - warfarin (COUMADIN) 4 mg tablet 2mg Mon and 3mg all other days or as directed - warfarin (COUMADIN) 4 mg tablet 2mg Mon and 3mg all other days or as directed - gabapentin (NEURONTIN) 100 mg capsule Take 1 capsule by mouth two times a day for 180 days. - albuterol HFA (PROVENTIL HFA, VENTOLIN HFA) 90 mcg/actuation inhaler Inhale 2 Puffs as instructed every 4 hours as needed for wheezing/shortness of breath. - warfarin (COUMADIN) 3 mg tablet Take 1 tablet by mouth daily as directed. - Back Brace misc 1 Each once daily. Custom made - amiodarone (PACERONE) 200 mg tablet Take 0.5 tablets by mouth once daily. - dilTIAZem CD (CARDIZEM CD, CARTIA XT) 240 mg 24 hr capsule Take 240 mg by mouth once daily. - WALKER ROLLATOR SEAT WITH 6 WHEELS - RED Daily use R26.81 Gait instability (primary encounter diagnosis) - potassium chloride 20 mEq TbER Take 1 tablet by mouth once daily. [...] Epic data Problem List As Of Date 01/27/2025 Noted Resolved Dysphagia, unspecified(787.20) [R13.10] 05/08/2018 MARFAN'S [...] [R53.83] 11/24/2016 10/10/2017 Lung nodule [R91.1] 06/06/2019 05/31/2024 Chronic systolic heart failure (HCC) [I50.22] 11/21/2019 09/23/2020 Thoracic aorta atherosclerosis (HCC) [I70.0] 03/23/2020 09/23/2020 Pleural effusion, right [J90] 05/05/2020 11/08/2022 Thyroid nodule [E04.1] 05/11/2020 Prediabetes [R73.03] 09/25/2020 Pulmonary hypertension (HCC) [I27.20] 05/11/2021 Moderate mitral regurgitation [I34.0] 06/18/2021 Encounter for support and coordination of trans*07/20/2021 07/26/2022 Pleural effusion [J90] 01/31/2022 04/19/2022 Renal infarct (HCC) [N28.0] 04/19/2022 07/26/2022 Abnormal levels of other serum enzymes [R74.8] 11/11/2021 11/08/2022 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) [I50*09/03/2021 Acute respiratory failure (HCC) [J96.00] 07/22/2021 11/08/2022 Chronic obstructive pulmonary disease (HCC) [J4*04/28/2021 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] 07/22/2021 11/08/2022 Cyst of kidney, acquired [N28.1] 07/22/2021 11/08/2022 Dehydration [E86.0] 02/03/2022 11/08/2022 Deviation of international normalized ratio (IN*09/19/2022 11/08/2022 Elevated liver enzymes [R74.8] 11/11/2021 11/08/2022 Gram-negative bacteremia [R78.81] 02/03/2022 11/08/2022 History of hysterectomy [Z90.710] 09/19/2022 History of surgical procedure [Z98.890] 09/19/2022 11/08/2022 Hypokalemia [E87.6] 07/09/2021 11/08/2022 Hyponatremia [E87.1] 07/09/2021 11/08/2022 Hypophosphatemia [E83.39] 02/03/2022 11/08/2022 Hypoxemia [R09.02] 06/23/2021 11/08/2022 Hypoxia [R09.02] 06/23/2021 11/08/2022 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] 07/22/2021 11/08/2022 Leukocytosis [D72.829] 07/22/2021 11/08/2022 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 11/08/2022 Pneumonia [J18.9] 02/03/2022 11/08/2022 Pyothorax without fistula (HCC) [J86.9] 02/03/2022 11/08/2022 Rheumatoid arthritis, unspecified (HCC) [M06.9] 04/28/2021 Shortness of breath [R06.02] 09/16/2021 11/08/2022 Calculus of gallbladder without cholecystitis w*11/08/2022 History of empyema of pleura [Z87.09] 11/08/2022 History of compression fracture of spine [Z87.8*11/08/2022 Stage 3 chronic kidney disease (HCC) [N18.30] 11/08/2022 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 [K22.70] 02/15/2023 Abdominal bloating [R14.0] 01/10/2023 05/31/2024 Diagnosed: 05/10/2023 Iron deficiency anemia [D50.9] 01/10/2023 Diagnosed: 05/10/2023 Encounter Status:Closed by ASHLEY JENKINS on 01/27/25 FREDY Observed: 01/24/2025 12:00 AM Status: COMPLETED Source: [facility] NIMISHA CEJA ([id number]) 1945 F Date Time Provider Department 01/24/25 WES MAGALLON [facility] During your visit today, we recorded the following information about you: Nay Cottrell, RN 01/24/2025 2:56 PM Signed Edith with [facility] calls to ask if provider would be willing to follow their HH orders for SN and PT. Patient currently at [facility] for COPD and CHF exacerbation with hypoxemia. Plan is to discharge patient tomorrow after she has had another round of steroids. Patient will not be coming home on oxygen at this point. Call back number for Edith is [phone]. Please review and advise, PEYTON Schmidt William J, MD 01/24/2025 3:10 PM Signed ok Jaqueline PersonCECILE 01/24/2025 3:31 PM Signed Notified. Allergies As of Date: 01/24/2025 Noted Allergy Reaction CRESTOR (ROSUVASTATIN CALCIUM) 01/19/2011 14 - Other: See Comments Comments: Myalgia. ATORVASTATIN 12/13/2024 14 - Other: See Comments 17 - Myalgia Comments: Fatigue, myalgia, and unsteady gait. IBUPROFEN 12/04/2008 14 - Other: See Comments Comments: dizzy PREVNAR 13 (PNEUMOC 13-CHU CONJ-D*07/27/2015 2 - Rash Comments: Presumed reaction to Prevnar. LATEX 12/08/2008 2 - Rash Comments: Local contact rash. Date Reviewed: 03/28/2024 Reviewed by: Mimi Escobar APRN.STITCH SEPARATOR - Fully Assessed Reason for Visit: Orders [681] Prescriptions as of 01/24/2025 - furosemide (LASIX) 40 mg tablet Take 1 tablet by mouth once daily. - omeprazole (PRILOSEC) 20 mg capsule Take 1 capsule by mouth two times a day. - metoprolol tartrate, short acting, (LOPRESSOR) 25 mg tablet Take 1 tablet by mouth two times a day. - warfarin (COUMADIN) 2 mg tablet take 2mg Mon, Wed and 3mg all other days or as directed pending lab results - warfarin (COUMADIN) 3 mg tablet Take 1 tablet by mouth daily as directed. - warfarin (COUMADIN) 3 mg tablet 2mg Mon Wed and 3mg all other days or as directed - warfarin (COUMADIN) 4 mg tablet 2mg Mon and 3mg all other days or as directed - warfarin (COUMADIN) 4 mg tablet 2mg Mon and 3mg all other days or as directed - gabapentin (NEURONTIN) 100 mg capsule Take 1 capsule by mouth two times a day for 180 days. - albuterol HFA (PROVENTIL HFA, VENTOLIN HFA) 90 mcg/actuation inhaler Inhale 2 Puffs as instructed every 4 hours as needed for wheezing/shortness of breath. - warfarin (COUMADIN) 3 mg tablet Take 1 tablet by mouth daily as directed. - Back Brace misc 1 Each once daily. Custom made - amiodarone (PACERONE) 200 mg tablet Take 0.5 tablets by mouth once daily. - dilTIAZem CD (CARDIZEM CD, CARTIA XT) 240 mg 24 hr capsule Take 240 mg by mouth once daily. - WALKER ROLLATOR SEAT WITH 6 WHEELS - RED Daily use R26.81 Gait instability (primary encounter diagnosis) - potassium chloride 20 mEq TbER Take 1 tablet by mouth once daily. [...] Epic data Problem List As Of Date 01/24/2025 Noted Resolved Dysphagia, unspecified(787.20) [R13.10] 05/08/2018 MARFAN'S [...] [R53.83] 11/24/2016 10/10/2017 Lung nodule [R91.1] 06/06/2019 05/31/2024 Chronic systolic heart failure (HCC) [I50.22] 11/21/2019 09/23/2020 Thoracic aorta atherosclerosis (HCC) [I70.0] 03/23/2020 09/23/2020 Pleural effusion, right [J90] 05/05/2020 11/08/2022 Thyroid nodule [E04.1] 05/11/2020 Prediabetes [R73.03] 09/25/2020 Pulmonary hypertension (HCC) [I27.20] 05/11/2021 Moderate mitral regurgitation [I34.0] 06/18/2021 Encounter for support and coordination of trans*07/20/2021 07/26/2022 Pleural effusion [J90] 01/31/2022 04/19/2022 Renal infarct (HCC) [N28.0] 04/19/2022 07/26/2022 Abnormal levels of other serum enzymes [R74.8] 11/11/2021 11/08/2022 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) [I50*09/03/2021 Acute respiratory failure (HCC) [J96.00] 07/22/2021 11/08/2022 Chronic obstructive pulmonary disease (HCC) [J4*04/28/2021 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] 07/22/2021 11/08/2022 Cyst of kidney, acquired [N28.1] 07/22/2021 11/08/2022 Dehydration [E86.0] 02/03/2022 11/08/2022 Deviation of international normalized ratio (IN*09/19/2022 11/08/2022 Elevated liver enzymes [R74.8] 11/11/2021 11/08/2022 Gram-negative bacteremia [R78.81] 02/03/2022 11/08/2022 History of hysterectomy [Z90.710] 09/19/2022 History of surgical procedure [Z98.890] 09/19/2022 11/08/2022 Hypokalemia [E87.6] 07/09/2021 11/08/2022 Hyponatremia [E87.1] 07/09/2021 11/08/2022 Hypophosphatemia [E83.39] 02/03/2022 11/08/2022 Hypoxemia [R09.02] 06/23/2021 11/08/2022 Hypoxia [R09.02] 06/23/2021 11/08/2022 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] 07/22/2021 11/08/2022 Leukocytosis [D72.829] 07/22/2021 11/08/2022 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 11/08/2022 Pneumonia [J18.9] 02/03/2022 11/08/2022 Pyothorax without fistula (HCC) [J86.9] 02/03/2022 11/08/2022 Rheumatoid arthritis, unspecified (HCC) [M06.9] 04/28/2021 Shortness of breath [R06.02] 09/16/2021 11/08/2022 Calculus of gallbladder without cholecystitis w*11/08/2022 History of empyema of pleura [Z87.09] 11/08/2022 History of compression fracture of spine [Z87.8*11/08/2022 Stage 3 chronic kidney disease (HCC) [N18.30] 11/08/2022 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 [K22.70] 02/15/2023 Abdominal bloating [R14.0] 01/10/2023 05/31/2024 Diagnosed: 05/10/2023 Iron deficiency anemia [D50.9] 01/10/2023 Diagnosed: 05/10/2023 Encounter Status:Closed by JAQUELINE PERSON on 01/24/25 PROGRESS Observed: 01/16/2025 5:16 PM Status: COMPLETED Source: [facility] HNO ID: [id number] Author: MIMI ESCOBAR APRN.STITCH SEPARATOR Service: ? Author Type: Nurse Practitioner Type: Progress Notes Filed: 01/16/2025 17:17 Note Text: Agree with anticoag. PROGRESS Observed: 01/16/2025 2:47 PM Status: COMPLETED Source: [facility] HNO ID: [id number] Author: ABRAHAM POSADAS, RN Service: ? Author Type: Registered Nurse Type: Progress Notes Filed: 01/16/2025 17:17 Note Text: patient had inr completed at [facility] patients inr is 2.6 (patients inr range is 2.0-3.0) patient is currently taking 2mg Mon,Wed and 3mg all other days patients last dose change was on 03/05/24 due to a high level of 3.4 (dose at that time was 2mg Mon and 3mg all other days) patient has had no changes in medication and no missed doses and no change in diet Advised patient to continue on the same dose(s) and that they would only be contacted regarding dosage and follow up instructions after review with provider, if a change is needed. Written instructions given and patient verbalized understanding. Presently scheduled in 1 month (02/21/25) for follow up INR. PROGRESS Observed: 01/07/2025 2:59 PM Status: COMPLETED Source: [facility] HNO ID: [id number] Author: WES MAGALLON MD Service: ? Author Type: Physician Type: Progress Notes Filed: 01/07/2025 14:59 Note Text: agree PROGRESS Observed: 01/07/2025 2:15 PM Status: COMPLETED Source: [facility] HNO ID: [id number] Author: ABRAHAM POSADAS, PEYTON Service: ? Author Type: Registered Nurse Type: Progress Notes Filed: 01/07/2025 14:59 Note Text: patient had inr completed at [facility] patients inr is 3.3 (patients inr range is 2.0-3.0) patient is currently taking 2mg Mon,Wed and 3mg all other days patients last dose change was on 03/05/24 due to a high level of 3.4 (dose at that time was 2mg Mon and 3mg all other days) patient has had no changes in medication and no missed doses and no change in diet FYI - patient was not feeling well last week and didn't eat much recommend: patient hold coumadin today and then starting Monday go back to regular dosing as listed above and recheck in 1 week patient has been scheduled for a 1 week follow up inr on 01/14/25 please review and advise on recommendation patient only needs called if provider does not agree with recommendation FREDY Observed: 12/23/2024 12:00 AM Status: COMPLETED Source: [facility] Telephone ([facility]) NIMISHA CEJA ([id number]) 1945 F Date Time Provider Department 12/23/24 MIMI ESCOBAR [facility] During your visit today, we recorded the following information about you: Jaqueline Person LPN 12/23/2024 12:08 PM Signed View External Labs - Chemistry [ID [id number]] View External Labs - Hematology [ID [id number]] Labs results from labs ordered at visit with Gali. See scanned documents. Allergies As of Date: 12/23/2024 Noted Allergy Reaction CRESTOR (ROSUVASTATIN CALCIUM) 01/19/2011 14 - Other: See Comments Comments: Myalgia. ATORVASTATIN 12/13/2024 14 - Other: See Comments 17 - Myalgia Comments: Fatigue, myalgia, and unsteady gait. IBUPROFEN 12/04/2008 14 - Other: See Comments Comments: dizzy PREVNAR 13 (PNEUMOC 13-CHU CONJ-D*07/27/2015 2 - Rash Comments: Presumed reaction to Prevnar. LATEX 12/08/2008 2 - Rash Comments: Local contact rash. Date Reviewed: 03/28/2024 Reviewed by: Mimi Escobar, PADMA.STITCH SEPARATOR - Fully Assessed Reason for Visit: Results [95] Order(s):HBA1C (OUTSIDE) [0347959] Order #: [id number] TSH (EXTERNAL) [3161205] Order #: [id number] CREATININE SERUM [7541384] Order #: [id number] Prescriptions as of 01/17/2025 - furosemide (LASIX) 40 mg tablet Take 1 tablet by mouth once daily. - omeprazole (PRILOSEC) 20 mg capsule Take 1 capsule by mouth two times a day. - metoprolol tartrate, short acting, (LOPRESSOR) 25 mg tablet Take 1 tablet by mouth two times a day. - warfarin (COUMADIN) 2 mg tablet take 2mg Mon, Wed and 3mg all other days or as directed pending lab results - warfarin (COUMADIN) 3 mg tablet Take 1 tablet by mouth daily as directed. - warfarin (COUMADIN) 3 mg tablet 2mg Mon Wed and 3mg all other days or as directed - warfarin (COUMADIN) 4 mg tablet 2mg Mon and 3mg all other days or as directed - warfarin (COUMADIN) 4 mg tablet 2mg Mon and 3mg all other days or as directed - gabapentin (NEURONTIN) 100 mg capsule Take 1 capsule by mouth two times a day for 180 days. - albuterol HFA (PROVENTIL HFA, VENTOLIN HFA) 90 mcg/actuation inhaler Inhale 2 Puffs as instructed every 4 hours as needed for wheezing/shortness of breath. - warfarin (COUMADIN) 3 mg tablet Take 1 tablet by mouth daily as directed. - Back Brace misc 1 Each once daily. Custom made - amiodarone (PACERONE) 200 mg tablet Take 0.5 tablets by mouth once daily. - dilTIAZem CD (CARDIZEM CD, CARTIA XT) 240 mg 24 hr capsule Take 240 mg by mouth once daily. - WALKER ROLLATOR SEAT WITH 6 WHEELS - RED Daily use R26.81 Gait instability (primary encounter diagnosis) - potassium chloride 20 mEq TbER Take 1 tablet by mouth once daily. [...] Epic data Problem List As Of Date 12/23/2024 Noted Resolved Dysphagia, unspecified(787.20) [R13.10] 05/08/2018 MARFAN'S [...] [R53.83] 11/24/2016 10/10/2017 Lung nodule [R91.1] 06/06/2019 05/31/2024 Chronic systolic heart failure (HCC) [I50.22] 11/21/2019 09/23/2020 Thoracic aorta atherosclerosis (HCC) [I70.0] 03/23/2020 09/23/2020 Pleural effusion, right [J90] 05/05/2020 11/08/2022 Thyroid nodule [E04.1] 05/11/2020 Prediabetes [R73.03] 09/25/2020 Pulmonary hypertension (HCC) [I27.20] 05/11/2021 Moderate mitral regurgitation [I34.0] 06/18/2021 Encounter for support and coordination of trans*07/20/2021 07/26/2022 Pleural effusion [J90] 01/31/2022 04/19/2022 Renal infarct (HCC) [N28.0] 04/19/2022 07/26/2022 Abnormal levels of other serum enzymes [R74.8] 11/11/2021 11/08/2022 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) [I50*09/03/2021 Acute respiratory failure (HCC) [J96.00] 07/22/2021 11/08/2022 Chronic obstructive pulmonary disease (HCC) [J4*04/28/2021 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] 07/22/2021 11/08/2022 Cyst of kidney, acquired [N28.1] 07/22/2021 11/08/2022 Dehydration [E86.0] 02/03/2022 11/08/2022 Deviation of international normalized ratio (IN*09/19/2022 11/08/2022 Elevated liver enzymes [R74.8] 11/11/2021 11/08/2022 Gram-negative bacteremia [R78.81] 02/03/2022 11/08/2022 History of hysterectomy [Z90.710] 09/19/2022 History of surgical procedure [Z98.890] 09/19/2022 11/08/2022 Hypokalemia [E87.6] 07/09/2021 11/08/2022 Hyponatremia [E87.1] 07/09/2021 11/08/2022 Hypophosphatemia [E83.39] 02/03/2022 11/08/2022 Hypoxemia [R09.02] 06/23/2021 11/08/2022 Hypoxia [R09.02] 06/23/2021 11/08/2022 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] 07/22/2021 11/08/2022 Leukocytosis [D72.829] 07/22/2021 11/08/2022 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 11/08/2022 Pneumonia [J18.9] 02/03/2022 11/08/2022 Pyothorax without fistula (HCC) [J86.9] 02/03/2022 11/08/2022 Rheumatoid arthritis, unspecified (HCC) [M06.9] 04/28/2021 Shortness of breath [R06.02] 09/16/2021 11/08/2022 Calculus of gallbladder without cholecystitis w*11/08/2022 History of empyema of pleura [Z87.09] 11/08/2022 History of compression fracture of spine [Z87.8*11/08/2022 Stage 3 chronic kidney disease (HCC) [N18.30] 11/08/2022 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 [K22.70] 02/15/2023 Abdominal bloating [R14.0] 01/10/2023 05/31/2024 Diagnosed: 05/10/2023 Iron deficiency anemia [D50.9] 01/10/2023 Diagnosed: 05/10/2023 Encounter Status:Closed by JAQUELINE PERSON on 01/17/25 PROGRESS Observed: 12/13/2024 2:33 PM Status: COMPLETED Source: [facility] HNO ID: [id number] Author: MIMI ESCOBAR APRN.CNP Service: ? Author Type: Nurse Practitioner Type: Progress Notes Filed: 12/13/2024 15:09 Note Text: Chief Reason For Appointment Patient presents with: Medicare Wellness Exam Nimisha Ceja is a 79 year old female who presents for annual exam. Last office visit date: 05/31/2024 Accompanied By friend Have you had any critical events, hospital stays, ER visits, surgeries or procedures since your last visit here in our office: Yes, EGD yesterday Specialists/Other Healthcare Providers Seen: Patient Care Team: Wes Magallon MD as PCP - General (Family Medicine) Junaid Arriaga MD as Physician (Cardiology) Santos Calvin MD as Physician (Urology) Flaquito Mariee MD as Lode Miner (Pulmonary Disease) Wes Magallon MD as Home Care Provider (Family Medicine) Mera Langford MD as Referring Dalila Jensen APRN.CNP as Functional Director (Family Medicine) Mimi Escobar APRN.CNP as Functional Director (Family Medicine) Concerns today: Fatigue, unsteady, upper arms aching intermittently since starting starting Lipitor in June HPI Pt. Feels that atorvastatin makes her achy, fatigued and dizzy Nimisha Ceja is a 79-year-old female with a history of rheumatoid arthritis, presenting for an annual wellness visit, with additional complaints of fatigue, myalgias, and dizziness since starting atorvastatin. Annual Wellness Exam: - Recent EGD performed yesterday. - Scheduled for a chest X-ray and pulmonary function test. - Cataract surgery in both eyes; last eye exam 3 years ago. - Denies recent falls. - No living will. Fatigue, Myalgias, and Dizziness: - Symptoms began after starting atorvastatin in June. - Reports fatigue, myalgias in upper arms and back, and dizziness upon standing. - Previous intolerance to Crestor due to severe myalgias. - Denies chest pain, dyspnea, palpitations, weight loss, fevers, or chills. - Denies nausea, emesis, diarrhea, or constipation. - Denies urinary frequency, urgency, burning, or incontinence. - Denies joint pain or swelling, rashes, or wounds. - Denies heat or cold intolerance. - Denies anxiety or suicidal thoughts; reports occasional depression. Rheumatoid Arthritis: - Well-controlled. Vision Problems: - Chronic vision issues; no new or worsening symptoms. - Denies headaches, tremors, or syncope. Pulmonary Concerns: - Occasional cough with clear phlegm, especially at night. - Denies congestion or wheezing. Gastrointestinal Concerns: - Occasional bloating after meals, relieved by lying down. - Takes omeprazole BID and Tums PRN with relief. - Denies heartburn or acid reflux. Edema: - Occasional ankle edema at night after prolonged walking, resolves with sleep. - Does not elevate legs. Hydration: - Inconsistent water intake; some days adequate, other days minimal. Active Problems ACTIVE PROBLEM LIST Mata's Esophagus Without Dysplasia - 02/15/2023 Iron Deficiency Anemia - 01/10/2023 Calculus of Gallbladder Without Cholecystitis Without Obstruction - 11/08/2022 History of Empyema of Pleura - 11/08/2022 History of Compression Fracture of Spine - 11/08/2022 Stage 3 Chronic Kidney Disease (Hcc) - 11/08/2022 History of Hysterectomy - 09/19/2022 Acute On Chronic Right Heart Failure (Hcc) - 09/03/2021 Moderate Mitral Regurgitation - 06/18/2021 Comment: 04/27/21 Echo at [facility]. Pulmonary Hypertension (Hcc) - 05/11/2021 Chronic Obstructive Pulmonary Disease (Hcc) - 04/28/2021 Comment: Dr Mariee released her from his care. Rheumatoid Arthritis, Unspecified (Formerly [facility]) - 04/28/2021 Comment: Has been stable. Not seen rheum in some time. Prediabetes - 09/25/2020 Thyroid Nodule - 05/11/2020 Comment: Seeing Abimael Evans Negative FNA 06/28-recommended repeat us in one year. Hypertension, Essential - 06/23/2015 Chronic Anticoagulation - 06/23/2015 Paroxysmal Atrial Fibrillation (Hcc) Comment: Sees [facility] Hyperlipidemia - 01/19/2011 Comment: Mildly elevated LDL, but high HDL. History of Polymyalgia Rheumatica - 01/19/2011 Marfan's Syndrome (Hcc) Esophageal Reflux ROS: Constitutional: (+) fatigue, (+) somnolence, (-) weight loss, (-) fever, (-) chills Head: (-) headache Ears/Nose/Mouth/Throat: (+) throat phlegm Cardiovascular: (+) ankle edema, (-) chest pain Respiratory: (+) cough, (+) clear sputum, (-) dyspnea Gastrointestinal: (+) abdominal bloating, (-) heartburn, (-) nausea, (-) vomiting, (-) diarrhea, (-) constipation Genitourinary: (-) urinary frequency, (-) urinary urgency, (-) dysuria Musculoskeletal: (+) upper arm myalgia, (+) low back pain Skin: (+) left forearm scab, (+) ankle scratches, (-) rash Neurological: (+) dizziness, (+) gait instability Psychiatric: (+) depressed mood, (-) suicidal ideation Endocrine: (-) heat intolerance, (-) cold intolerance PAST MEDICAL HISTORY Diagnosis Date A-fib (HCC) Class 1 congestive heart failure, unspecified failure chronicity, systolic (HCC) 11/21/2019 Dysphagia, unspecified(787.20) Esophageal reflux Esophagitis, unspecified Marfan's syndrome (HCC) Moderate mitral regurgitation 06/18/2021 04/27/21 Echo at [facility]. Pleural effusion, right 05/05/2020 CXR 11/18/19 and [...] ABDOMINAL HYSTERECT W/WO RMVL TUBE OVARY Hysterectomy, [facility] Medication List Current Outpatient Medications Medication Sig Dispense Refill warfarin (COUMADIN) 2 mg tablet take 2mg Mon, Wed and 3mg all other days or as directed pending lab results 30 tablet 5 metoprolol tartrate, short acting, (LOPRESSOR) 50 mg tablet Take 1 tablet by mouth two times a day. 180 tablet 3 atorvastatin (LIPITOR) 20 mg tablet Take 1 tablet by mouth once daily. 90 tablet 3 omeprazole (PRILOSEC) 40 mg capsule Take 1 capsule by mouth once daily. (Patient taking differently: Take 20 mg by mouth two times a day.) 90 capsule 3 gabapentin (NEURONTIN) 100 mg capsule Take 1 capsule by mouth two times a day for 180 days. 180 capsule 1 albuterol HFA (PROVENTIL HFA, VENTOLIN HFA) 90 mcg/actuation inhaler Inhale 2 Puffs as instructed every 4 hours as needed for wheezing/shortness of breath. 8.5 g 2 amiodarone (PACERONE) 200 mg tablet Take 0.5 tablets by mouth once daily. dilTIAZem CD (CARDIZEM CD, CARTIA XT) 240 mg 24 hr capsule Take 240 mg by mouth once daily. furosemide (LASIX) 40 mg tablet Take 1 tablet by mouth twice daily. (Patient taking differently: Take 40 mg by mouth once daily.) 180 tablet 3 potassium chloride 20 mEq TbER Take 1 tablet by mouth twice daily. (Patient taking differently: Take 1 tablet by mouth once daily.) CALCIUM CARBONATE (CALCIUM 600 ORAL) Take 1 tablet by mouth once daily. MULTIVITAMIN ORAL Take 1 tablet by mouth once daily. warfarin (COUMADIN) 3 mg tablet Take 1 tablet by mouth daily as directed. 30 tablet 2 warfarin (COUMADIN) 3 mg tablet 2mg Mon Wed and 3mg all other days or as directed 30 tablet 11 warfarin (COUMADIN) 4 mg tablet 2mg Mon and 3mg all other days or as directed 90 tablet 3 warfarin (COUMADIN) 4 mg tablet 2mg Mon and 3mg all other days or as directed warfarin (COUMADIN) 3 mg tablet Take 1 tablet by mouth daily as directed. 30 tablet 2 Back Brace misc 1 Each once daily. Custom made 1 Each 0 WALKER ROLLATOR SEAT WITH 6 WHEELS - RED Daily use R26.81 Gait instability (primary encounter diagnosis) 1 Each 0 COMPOUNDED PRESCRIPTION Compression stockings 20-30mmHg 2 pair 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 Weight Summary: Weight Change: Body mass index is 24.52 kg/m?. Last Wt 12/13/24 : 54.4 kg (120 lb) 05/31/24 : 55.8 kg (123 lb) 11/30/23 : 56.7 kg (125 lb) 07/25/23 : 56.7 kg (125 lb) 07/10/23 : 58.1 kg (128 lb) Physical Exam: GENERAL: NAD, alert and oriented. SKIN: Small scab noted on left forearm from cat scratch- clean and 1 .5 in long. HEAD: Normocephalic. EYES: Limited vision. Watery eyes. Darkness noted in left eye tht does not reflect light. EARS: External ears normal, canals clear, TM's normal. NOSE/SINUSES: Nares normal. Septum midline. OROPHARYNX: Lips, mucosa, and tongue normal, good dentition. No oral lesions noted. NECK: Supple, no lymphadenopathy, normal thyroid, no carotid bruits. LUNGS: Clear to auscultation bilaterally, no wheezes/rhonchi/rales. HEART: Regular rate and rhythm, no murmurs. No ectopy. EXTREMITIES: Normal, no deformities, no skin discoloration. Mild pedal edema noted in lower extremities. NEURO: Awake, alert and oriented x3, cranial nerves II-XII grossly intact, unsteady gait- walks with a cane, no involuntary motions. SCREENINGS Health Maintenance Listing Shingrix Vaccine(1 of 2) Advance Directive Discussion Medicare Advantage Annual Wellness Visit Depression Screening Anxiety Screening TEST RESULTS: Lab Studies: Date of lab studies: - glucose - potassium - Creatinine, gfr - LFTs Lipid: WBC, HANDH, Platelets: A1C: Vitamin D: Other: A/P: 1. Screening for depression (Z13.31) - Patient reports occasional depression. - No suicidal ideations. 2. Encounter for screening examination for other mental health and behavioral disorders (Z13.39) - No anxiety or other mental health disorders reported. 3. Medicare annual wellness visit, subsequent (Z00.00) - Completed. 4. GERD without esophagitis (K21.9) - Managed with omeprazole twice daily. - Occasional bloating postprandially, relieved by lying down. - Uses Tums as needed for additional relief. 5. Fatigue, unspecified type (R53.83) - Onset coincides with initiation of atorvastatin. - Discontinue atorvastatin; documented as an allergy due to previous severe myalgia with Crestor. - Ordered lab work to evaluate underlying causes. 6. Pure hypercholesterolemia (E78.00) - Atorvastatin discontinued due to adverse effects. - Will reassess lipid management after lab results. 7. Paroxysmal atrial fibrillation (HCC) (I48.0) - Managed with metoprolol and diltiazem. - Reduced metoprolol dosage to 25 mg BID due to orthostatic hypotension. - Increase fluid intake to prevent dehydration. _ anticoagulated with warfarin 8. Hypertension, essential (I10) - Blood pressure readings: 120/80 mmHg sitting, 100/40 mmHg standing. - Orthostatic hypotension noted; adjusted metoprolol dosage. - Monitor blood pressure at home. 9. Pulmonary hypertension ([facility]) (I27.20) - Scheduled for pulmonary function test and chest X-ray. - Results to be sent to [facility] for review. 10. Chronic obstructive pulmonary disease, unspecified COPD type ([facility]) (J44.9) - Scheduled for pulmonary function test and chest X-ray. - Results to be sent to [facility] for review. 11. Stage 3 chronic kidney disease, unspecified whether stage 3a or 3b CKD ([facility]) (N18.30) - Monitor renal function with upcoming lab work. 12. Thyroid nodule (E04.1) - Ordered thyroid function tests. 13. Iron deficiency anemia due to chronic blood loss (D50.0) - Monitor hemoglobin and hematocrit levels with upcoming lab work. 14. Rheumatoid arthritis, involving unspecified site, unspecified whether rheumatoid factor present ([facility]) (M06.9) - Well-controlled. - Continue current management. 15. Chronic anticoagulation (Z79.01) - Managed with warfarin. - Resumed after temporary discontinuation for EGD. - Monitor INR levels. 16. Prediabetes (R73.03) - Monitor blood glucose levels with upcoming lab work. 17. Hypotension, unspecified hypotension type - ICD9: 458.9, ICD10: I95.9 Orthostatic change- encouraged fluids - decreased metoprolol to 25 mg 2 x day Follow Up Plans: 6 m Nimisha Ceja is a 79 year old female here for a Medicare wellness visit. Medicare Health Risk Assessment General Health Fair Exercise: Minutes/Day 0 min Exercise: Days/Week 0 days Alcohol: Daily Use Never Alcohol: Drinks/Day Patient does not drink Alcohol: 6 or more drinks Never Feel off balance Yes Concerns: Teeth/Dentures No Concerns: Sexual function No Troubled by feelings Stressed; Lonely Frequency: Eating healthy diet Several days ADLs requiring help Grocery shopping; Housework; Walking; Driving Safety precautions in home/vehicle Yes Smoke, vape, chews tobacco No Difficulty hearing No Difficulty seeing Yes Current Providers Specialists: I have reviewed specialist-related care of the patient in the medical record. Current care team: Patient Care Team: Wes Magallon MD as PCP - General (Family Medicine) Junaid Arriaga MD as Physician (Cardiology) Santos Calvin MD as Physician (Urology) Flaquito Mariee MD as Lode Miner (Pulmonary Disease) Wes Magallon MD as Home Care Provider (Family Medicine) Mera Langford MD as Referring Dalila Jensen APRN.STITCH SEPARATOR as Functional Director (Family Medicine) Mimi Escobar APRN.CNP as Functional Director (Family Medicine) Medical/Family history review Reviewed and updated problem list, medical/surgical/family/social history, medications, and allergies. Opioid use review Opioid Medications (last 90 days) No data to display Anxiety/Depression screening PHQ-9 Score: 5 (Mild Depression) Recommendation: no further intervention at this time Cognitive screening Mini Cog Score: 5 Cognitive screening reviewed and No further action needed (score 3-5). Functional Observation Was the patient's Timed Up AND Go test unsteady or >= 12 seconds? Yes. Advance Care Planning Patient did not wish or was not able to name a surrogate decision maker or provide an advance care plan Has information but not wanting Measurements BP 148/50 Pulse (!) 55 Ht 149 cm (4' 10.66) Wt 54.4 kg (120 lb) SpO2 94% BMI 24.52 kg/m? Vision Screening: Follows with optometry/ophthalmology Poor vision. Assessment/Plan Medicare annual wellness visit, subsequent (Z00.00) - Counseled on healthy diet and regular exercise - Fall avoidance information provided - Personalized prevention plan provided CNOV Observed: 12/13/2024 2:20 PM Status: COMPLETED Source: [facility] Office Visit (FAMPWS) NIMISHA CEJA ([id number]) 1945 F Date Time Provider Department 12/13/24 2:20 PM MIMI ESCOBAR [facility] During your visit today, we recorded the following information about you: Pulse Blood pressure Weight Height 55/minute 148/50 54.4 kg 1.49 m Mimi Escobar APRN.CNP 12/13/2024 3:09 PM Signed Chief Reason For Appointment Patient presents with: Medicare Wellness Exam Nimisha Ceja is a 79 year old female who presents for annual exam. Last office visit date: 05/31/2024 Accompanied By friend Have you had any critical events, hospital stays, ER visits, surgeries or procedures since your last visit here in our office: Yes, EGD yesterday Specialists/Other Healthcare Providers Seen: Patient Care Team: Wes Magallon MD as PCP - General (Family Medicine) Junaid Arriaga MD as Physician (Cardiology) Santos Calvin MD as Physician (Urology) Flaquito Mariee MD as Lode Miner (Pulmonary Disease) Wes Magallon MD as Home Care Provider (Family Medicine) Mera Langford MD as Referring Dalila Jensen APRN.CNP as Functional Director (Family Medicine) Mimi Escobar APRN.CNP as Functional Director (Family Medicine) Concerns today: Fatigue, unsteady, upper arms aching intermittently since starting starting Lipitor in June HPI Pt. Feels that atorvastatin makes her achy, fatigued and dizzy Nimisha Ceja is a 79-year-old female with a history of rheumatoid arthritis, presenting for an annual wellness visit, with additional complaints of fatigue, myalgias, and dizziness since starting atorvastatin. Annual Wellness Exam: - Recent EGD performed yesterday. - Scheduled for a chest X-ray and pulmonary function test. - Cataract surgery in both eyes; last eye exam 3 years ago. - Denies recent falls. - No living will. Fatigue, Myalgias, and Dizziness: - Symptoms began after starting atorvastatin in June. - Reports fatigue, myalgias in upper arms and back, and dizziness upon standing. - Previous intolerance to Crestor due to severe myalgias. - Denies chest pain, dyspnea, palpitations, weight loss, fevers, or chills. - Denies nausea, emesis, diarrhea, or constipation. - Denies urinary frequency, urgency, burning, or incontinence. - Denies joint pain or swelling, rashes, or wounds. - Denies heat or cold intolerance. - Denies anxiety or suicidal thoughts; reports occasional depression. Rheumatoid Arthritis: - Well-controlled. Vision Problems: - Chronic vision issues; no new or worsening symptoms. - Denies headaches, tremors, or syncope. Pulmonary Concerns: - Occasional cough with clear phlegm, especially at night. - Denies congestion or wheezing. Gastrointestinal Concerns: - Occasional bloating after meals, relieved by lying down. - Takes omeprazole BID and Tums PRN with relief. - Denies heartburn or acid reflux. Edema: - Occasional ankle edema at night after prolonged walking, resolves with sleep. - Does not elevate legs. Hydration: - Inconsistent water intake; some days adequate, other days minimal. Active Problems ACTIVE PROBLEM LIST Mata's Esophagus Without Dysplasia - 02/15/2023 Iron Deficiency Anemia - 01/10/2023 Calculus of Gallbladder Without Cholecystitis Without Obstruction - 11/08/2022 History of Empyema of Pleura - 11/08/2022 History of Compression Fracture of Spine - 11/08/2022 Stage 3 Chronic Kidney Disease (Hcc) - 11/08/2022 History of Hysterectomy - 09/19/2022 Acute On Chronic Right Heart Failure (Hcc) - 09/03/2021 Moderate Mitral Regurgitation - 06/18/2021 Comment: 04/27/21 Echo at [facility]. Pulmonary Hypertension (Hcc) - 05/11/2021 Chronic Obstructive Pulmonary Disease (Hcc) - 04/28/2021 Comment: Dr Mariee released her from his care. Rheumatoid Arthritis, Unspecified (Formerly [facility]) - 04/28/2021 Comment: Has been stable. Not seen rheum in some time. Prediabetes - 09/25/2020 Thyroid Nodule - 05/11/2020 Comment: Seeing Abimael Evans Negative FNA 06/28-recommended repeat us in one year. Hypertension, Essential - 06/23/2015 Chronic Anticoagulation - 06/23/2015 Paroxysmal Atrial Fibrillation (Hcc) Comment: Sees [facility] Hyperlipidemia - 01/19/2011 Comment: Mildly elevated LDL, but high HDL. History of Polymyalgia Rheumatica - 01/19/2011 Marfan's Syndrome (Hcc) Esophageal Reflux ROS: Constitutional: (+) fatigue, (+) somnolence, (-) weight loss, (-) fever, (-) chills Head: (-) headache Ears/Nose/Mouth/Throat: (+) throat phlegm Cardiovascular: (+) ankle edema, (-) chest pain Respiratory: (+) cough, (+) clear sputum, (-) dyspnea Gastrointestinal: (+) abdominal bloating, (-) heartburn, (-) nausea, (-) vomiting, (-) diarrhea, (-) constipation Genitourinary: (-) urinary frequency, (-) urinary urgency, (-) dysuria Musculoskeletal: (+) upper arm myalgia, (+) low back pain Skin: (+) left forearm scab, (+) ankle scratches, (-) rash Neurological: (+) dizziness, (+) gait instability Psychiatric: (+) depressed mood, (-) suicidal ideation Endocrine: (-) heat intolerance, (-) cold intolerance PAST MEDICAL HISTORY Diagnosis Date A-fib ([facility]) Class 1 congestive heart failure, unspecified failure chronicity, systolic (HCC) 11/21/2019 Dysphagia, unspecified(787.20) Esophageal reflux Esophagitis, unspecified Marfan's syndrome ([facility]) Moderate mitral regurgitation 06/18/2021 04/27/21 Echo at [facility]. Pleural effusion, right 05/05/2020 CXR 11/18/19 and [...] ABDOMINAL HYSTERECT W/WO RMVL TUBE OVARY Hysterectomy, [facility] Medication List Current Outpatient Medications Medication Sig Dispense Refill warfarin (COUMADIN) 2 mg tablet take 2mg Mon, Wed and 3mg all other days or as directed pending lab results 30 tablet 5 metoprolol tartrate, short acting, (LOPRESSOR) 50 mg tablet Take 1 tablet by mouth two times a day. 180 tablet 3 atorvastatin (LIPITOR) 20 mg tablet Take 1 tablet by mouth once daily. 90 tablet 3 omeprazole (PRILOSEC) 40 mg capsule Take 1 capsule by mouth once daily. (Patient taking differently: Take 20 mg by mouth two times a day.) 90 capsule 3 gabapentin (NEURONTIN) 100 mg capsule Take 1 capsule by mouth two times a day for 180 days. 180 capsule 1 albuterol HFA (PROVENTIL HFA, VENTOLIN HFA) 90 mcg/actuation inhaler Inhale 2 Puffs as instructed every 4 hours as needed for wheezing/shortness of breath. 8.5 g 2 amiodarone (PACERONE) 200 mg tablet Take 0.5 tablets by mouth once daily. dilTIAZem CD (CARDIZEM CD, CARTIA XT) 240 mg 24 hr capsule Take 240 mg by mouth once daily. furosemide (LASIX) 40 mg tablet Take 1 tablet by mouth twice daily. (Patient taking differently: Take 40 mg by mouth once daily.) 180 tablet 3 potassium chloride 20 mEq TbER Take 1 tablet by mouth twice daily. (Patient taking differently: Take 1 tablet by mouth once daily.) CALCIUM CARBONATE (CALCIUM 600 ORAL) Take 1 tablet by mouth once daily. MULTIVITAMIN ORAL Take 1 tablet by mouth once daily. warfarin (COUMADIN) 3 mg tablet Take 1 tablet by mouth daily as directed. 30 tablet 2 warfarin (COUMADIN) 3 mg tablet 2mg Mon Wed and 3mg all other days or as directed 30 tablet 11 warfarin (COUMADIN) 4 mg tablet 2mg Mon and 3mg all other days or as directed 90 tablet 3 warfarin (COUMADIN) 4 mg tablet 2mg Mon and 3mg all other days or as directed warfarin (COUMADIN) 3 mg tablet Take 1 tablet by mouth daily as directed. 30 tablet 2 Back Brace misc 1 Each once daily. Custom made 1 Each 0 WALKER ROLLATOR SEAT WITH 6 WHEELS - RED Daily use R26.81 Gait instability (primary encounter diagnosis) 1 Each 0 COMPOUNDED PRESCRIPTION Compression stockings 20-30mmHg 2 pair 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 Weight Summary: Weight Change: Body mass index is 24.52 kg/m?. Last Wt 12/13/24 : 54.4 kg (120 lb) 05/31/24 : 55.8 kg (123 lb) 11/30/23 : 56.7 kg (125 lb) 07/25/23 : 56.7 kg (125 lb) 07/10/23 : 58.1 kg (128 lb) Physical Exam: GENERAL: NAD, alert and oriented. SKIN: Small scab noted on left forearm from cat scratch- clean and 1 .5 in long. HEAD: Normocephalic. EYES: Limited vision. Watery eyes. Darkness noted in left eye tht does not reflect light. EARS: External ears normal, canals clear, TM's normal. NOSE/SINUSES: Nares normal. Septum midline. OROPHARYNX: Lips, mucosa, and tongue normal, good dentition. No oral lesions noted. NECK: Supple, no lymphadenopathy, normal thyroid, no carotid bruits. LUNGS: Clear to auscultation bilaterally, no wheezes/rhonchi/rales. HEART: Regular rate and rhythm, no murmurs. No ectopy. EXTREMITIES: Normal, no deformities, no skin discoloration. Mild pedal edema noted in lower extremities. NEURO: Awake, alert and oriented x3, cranial nerves II-XII grossly intact, unsteady gait- walks with a cane, no involuntary motions. SCREENINGS Health Maintenance Listing Shingrix Vaccine(1 of 2) Advance Directive Discussion Medicare Advantage Annual Wellness Visit Depression Screening Anxiety Screening TEST RESULTS: Lab Studies: Date of lab studies: - glucose - potassium - Creatinine, gfr - LFTs Lipid: WBC, HANDH, Platelets: A1C: Vitamin D: Other: A/P: 1. Screening for depression (Z13.31) - Patient reports occasional depression. - No suicidal ideations. 2. Encounter for screening examination for other mental health and behavioral disorders (Z13.39) - No anxiety or other mental health disorders reported. 3. Medicare annual wellness visit, subsequent (Z00.00) - Completed. 4. GERD without esophagitis (K21.9) - Managed with omeprazole twice daily. - Occasional bloating postprandially, relieved by lying down. - Uses Tums as needed for additional relief. 5. Fatigue, unspecified type (R53.83) - Onset coincides with initiation of atorvastatin. - Discontinue atorvastatin; documented as an allergy due to previous severe myalgia with Crestor. - Ordered lab work to evaluate underlying causes. 6. Pure hypercholesterolemia (E78.00) - Atorvastatin discontinued due to adverse effects. - Will reassess lipid management after lab results. 7. Paroxysmal atrial fibrillation (HCC) (I48.0) - Managed with metoprolol and diltiazem. - Reduced metoprolol dosage to 25 mg BID due to orthostatic hypotension. - Increase fluid intake to prevent dehydration. _ anticoagulated with warfarin 8. Hypertension, essential (I10) - Blood pressure readings: 120/80 mmHg sitting, 100/40 mmHg standing. - Orthostatic hypotension noted; adjusted metoprolol dosage. - Monitor blood pressure at home. 9. Pulmonary hypertension (HCC) (I27.20) - Scheduled for pulmonary function test and chest X-ray. - Results to be sent to [facility] for review. 10. Chronic obstructive pulmonary disease, unspecified COPD type (HCC) (J44.9) - Scheduled for pulmonary function test and chest X-ray. - Results to be sent to [facility] for review. 11. Stage 3 chronic kidney disease, unspecified whether stage 3a or 3b CKD (HCC) (N18.30) - Monitor renal function with upcoming lab work. 12. Thyroid nodule (E04.1) - Ordered thyroid function tests. 13. Iron deficiency anemia due to chronic blood loss (D50.0) - Monitor hemoglobin and hematocrit levels with upcoming lab work. 14. Rheumatoid arthritis, involving unspecified site, unspecified whether rheumatoid factor present (HCC) (M06.9) - Well-controlled. - Continue current management. 15. Chronic anticoagulation (Z79.01) - Managed with warfarin. - Resumed after temporary discontinuation for EGD. - Monitor INR levels. 16. Prediabetes (R73.03) - Monitor blood glucose levels with upcoming lab work. 17. Hypotension, unspecified hypotension type - ICD9: 458.9, ICD10: I95.9 Orthostatic change- encouraged fluids - decreased metoprolol to 25 mg 2 x day Follow Up Plans: 6 m Nimisha Ceja is a 79 year old female here for a Medicare wellness visit. Medicare Health Risk Assessment General Health Fair Exercise: Minutes/Day 0 min Exercise: Days/Week 0 days Alcohol: Daily Use Never Alcohol: Drinks/Day Patient does not drink Alcohol: 6 or more drinks Never Feel off balance Yes Concerns: Teeth/Dentures No Concerns: Sexual function No Troubled by feelings Stressed; Lonely Frequency: Eating healthy diet Several days ADLs requiring help Grocery shopping; Housework; Walking; Driving Safety precautions in home/vehicle Yes Smoke, vape, chews tobacco No Difficulty hearing No Difficulty seeing Yes Current Providers Specialists: I have reviewed specialist-related care of the patient in the medical record. Current care team: Patient Care Team: Wes Magallon MD as PCP - General (Family Medicine) Junaid Arriaga MD as Physician (Cardiology) Santos Calvin MD as Physician (Urology) Flaquito Mariee MD as Lode Miner (Pulmonary Disease) Wes Magallon MD as Home Care Provider (Family Medicine) Mera Langford MD as Referring Dalila Jensen APRN.STITCH SEPARATOR as Functional Director (Family Medicine) Mimi Escobar APRN.CNP as Functional Director (Family Medicine) Medical/Family history review Reviewed and updated problem list, medical/surgical/family/social history, medications, and allergies. Opioid use review Opioid Medications (last 90 days) No data to display Anxiety/Depression screening PHQ-9 Score: 5 (Mild Depression) Recommendation: no further intervention at this time Cognitive screening Mini Cog Score: 5 Cognitive screening reviewed and No further action needed (score 3-5). Functional Observation Was the patient's Timed Up AND Go test unsteady or >= 12 seconds? Yes. Advance Care Planning Patient did not wish or was not able to name a surrogate decision maker or provide an advance care plan Has information but not wanting Measurements BP 148/50 Pulse (!) 55 Ht 149 cm (4' 10.66) Wt 54.4 kg (120 lb) SpO2 94% BMI 24.52 kg/m? Vision Screening: Follows with optometry/ophthalmology Poor vision. Assessment/Plan Medicare annual wellness visit, subsequent (Z00.00) - Counseled on healthy diet and regular exercise - Fall avoidance information provided - Personalized prevention plan provided Mimi Escobar APRN.CNP 12/13/2024 3:09 PM Addendum - Stop taking atorvastatin; it has been documented as an allergy in your record so it will not be prescribed again. - Reduce metoprolol to 25 mg twice daily; your new prescription has been sent to the pharmacy. - Continue taking omeprazole twice a day as you have been. - Continue warfarin (Coumadin) and amiodarone without any changes. - Increase your daily water intake to help prevent dehydration and reduce drops in your blood pressure when you stand. - Attend your scheduled pulmonary function test and chest x-ray at [facility] as arranged by your neurologist. - Complete the lab work for thyroid function and amiodarone monitoring at [facility] when you go for your tests; these orders have been sent to [facility]. - If you decide you?d like home health physical or occupational therapy to assist with balance and walking, please call our office anytime to arrange those services. Screening schedule The following prevention plan is recommended: Shingrix Vaccine(1 of 2) Never done Advance Directive Discussion due on 06/05/2024 Medicare Advantage Annual Wellness Visit Never done Depression Screening due on 11/29/2024 Anxiety Screening due on 11/29/2024 WHAT YOU CAN DO TO PREVENT FALLS Many falls can be prevented. By making some changes, you can lower your chances of falling. Four things YOU can do to prevent falls for you* and your caregiver 1. Begin a regular exercise program Exercise is one of the most important ways to lower your chances of falling. It makes you stronger and helps you feel better. Exercises that improve balance and coordination (like Awais Chi) are the most helpful. Lack of exercise leads to weakness and increases your chances of falling. Ask your doctor or health care provider about the best type of exercise program for you. 2. Have your health care provider review your medicines Have your doctor or pharmacist review all the medicines you take, even bzyd-hjk-uwmbfnr medicines. As you get older, the way medicines work in your body can change. Some medicines, or combinations of medicines, can make you sleepy or dizzy and can cause you to fall. 3. Have your vision checked Have your eyes checked by an eye doctor at least once a year. You may be wearing the wrong glasses or have a condition like glaucoma or cataracts that limits your vision. Poor vision can increase your chances of falling. 4. Make your home safer About half of all falls happen at home. To make your home safer: Remove things you can trip over (like papers, books, clothes, and shoes) from stairs and places where you walk. Remove small throw rugs or use double-sided tape to keep the rugs from slipping. Keep items you use often in cabinets you can reach easily without using a step stool. Have grab bars put in next to your toilet and in the tub or shower. Use non-slip mats in the bathtub and on shower floors. Improve the lighting in your home. As you get older, you need brighter lights to see well. Hang light-weight curtains or shades to reduce glare. Have handrails and lights put in on all staircases. Wear shoes both inside and outside the house. Avoid going barefoot or wearing slippers. For more information, contact: Centers for Disease Control and Prevention www.cdc.gov/injury * This information may not apply if you have certain medical conditions. Allergies As of Date: 12/13/2024 Noted Allergy Reaction CRESTOR (ROSUVASTATIN CALCIUM) 01/19/2011 14 - Other: See Comments Comments: Myalgia. ATORVASTATIN 12/13/2024 14 - Other: See Comments 17 - Myalgia Comments: Fatigue, myalgia, and unsteady gait. IBUPROFEN 12/04/2008 14 - Other: See Comments Comments: dizzy PREVNAR 13 (PNEUMOC 13-CHU CONJ-D*07/27/2015 2 - Rash Comments: Presumed reaction to Prevnar. LATEX 12/08/2008 2 - Rash Comments: Local contact rash. Date Reviewed: 03/28/2024 Reviewed by: Mimi Escobar APRN.STITCH SEPARATOR - Fully Assessed Reason for Visit: Medicare Wellness Exam [4060] Primary Visit Diagnosis:Medicare annual wellness visit, subsequent [Z00.00] Other Visit Diagnoses:Screening for depression [Z13.31] Encounter for screening examination for other mental health and behavioral disorders [Z13.39] GERD without esophagitis [K21.9] Fatigue, unspecified type [R53.83] Pure hypercholesterolemia [E78.00] Paroxysmal atrial fibrillation (HCC) [I48.0] Hypertension, essential [I10] Pulmonary hypertension (HCC) [I27.20] Chronic obstructive pulmonary disease, unspecified COPD type (HCC) [J44.9] Stage 3 chronic kidney disease, unspecified whether stage 3a or 3b CKD (HCC) [N18.30] Thyroid nodule [E04.1] Iron deficiency anemia due to chronic blood loss [D50.0] Rheumatoid arthritis, involving unspecified site, unspecified whether rheumatoid factor present (HCC) [M06.9] Chronic anticoagulation [Z79.01] Prediabetes [R73.03] Hypotension, unspecified hypotension type [I95.9] Order(s):DEPRESSION SCREENING [] Order #: [id number]: 1 ANXIETY SCREENING [] Order #: [id number]: 1 COMPLETE BLOOD COUNT AND DIFFERENTIAL [SQCBCDIF] Order #: [id number] FUTURE COMPREHENSIVE METABOLIC PANEL [SQCMP] Order #: [id number] FUTURE VITAMIN B12 [SQB12] Order #: [id number] FUTURE IRON AND TIBC [SQIRON] Order #: [id number] FUTURE FERRITIN [SQFERR] Order #: [id number] FUTURE THYROID STIMULATING HORMONE [SQTSH] Order #: [id number] FUTURE furosemide (LASIX) 40 mg tabletTake 1 tablet by mouth once daily.Disp: 90 tabletRfl: 3 omeprazole (PRILOSEC) 20 mg capsuleTake 1 capsule by mouth two times a day.Disp: 180 capsuleRfl: 3 MAGNESIUM [SQMG1] Order #: [id number] FUTURE HEMOGLOBIN A1C [RGNWD4C] Order #: [id number] FUTURE metoprolol tartrate, short acting, (LOPRESSOR) 25 mg tabletTake 1 tablet by mouth two times a day.Disp: 180 tabletRfl: 3 Prescriptions as of 12/13/2024 - furosemide (LASIX) 40 mg tablet Take 1 tablet by mouth once daily. - omeprazole (PRILOSEC) 20 mg capsule Take 1 capsule by mouth two times a day. - metoprolol tartrate, short acting, (LOPRESSOR) 25 mg tablet Take 1 tablet by mouth two times a day. - warfarin (COUMADIN) 2 mg tablet take 2mg Mon, Wed and 3mg all other days or as directed pending lab results - warfarin (COUMADIN) 3 mg tablet Take 1 tablet by mouth daily as directed. - warfarin (COUMADIN) 3 mg tablet 2mg Mon Wed and 3mg all other days or as directed - warfarin (COUMADIN) 4 mg tablet 2mg Mon and 3mg all other days or as directed - warfarin (COUMADIN) 4 mg tablet 2mg Mon and 3mg all other days or as directed - gabapentin (NEURONTIN) 100 mg capsule Take 1 capsule by mouth two times a day for 180 days. - albuterol HFA (PROVENTIL HFA, VENTOLIN HFA) 90 mcg/actuation inhaler Inhale 2 Puffs as instructed every 4 hours as needed for wheezing/shortness of breath. - warfarin (COUMADIN) 3 mg tablet Take 1 tablet by mouth daily as directed. - Back Brace misc 1 Each once daily. Custom made - amiodarone (PACERONE) 200 mg tablet Take 0.5 tablets by mouth once daily. - dilTIAZem CD (CARDIZEM CD, CARTIA XT) 240 mg 24 hr capsule Take 240 mg by mouth once daily. - WALKER ROLLATOR SEAT WITH 6 WHEELS - RED Daily use R26.81 Gait instability (primary encounter diagnosis) - potassium chloride 20 mEq TbER Take 1 tablet by mouth once daily. [...] Epic data Problem List As Of Date 12/13/2024 Noted Resolved Dysphagia, unspecified(787.20) [R13.10] 05/08/2018 MARFAN'S [...] [R53.83] 11/24/2016 10/10/2017 Lung nodule [R91.1] 06/06/2019 05/31/2024 Chronic systolic heart failure (HCC) [I50.22] 11/21/2019 09/23/2020 Thoracic aorta atherosclerosis (HCC) [I70.0] 03/23/2020 09/23/2020 Pleural effusion, right [J90] 05/05/2020 11/08/2022 Thyroid nodule [E04.1] 05/11/2020 Prediabetes [R73.03] 09/25/2020 Pulmonary hypertension (HCC) [I27.20] 05/11/2021 Moderate mitral regurgitation [I34.0] 06/18/2021 Encounter for support and coordination of trans*07/20/2021 07/26/2022 Pleural effusion [J90] 01/31/2022 04/19/2022 Renal infarct (HCC) [N28.0] 04/19/2022 07/26/2022 Abnormal levels of other serum enzymes [R74.8] 11/11/2021 11/08/2022 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) [I50*09/03/2021 Acute respiratory failure (HCC) [J96.00] 07/22/2021 11/08/2022 Chronic obstructive pulmonary disease (HCC) [J4*04/28/2021 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] 07/22/2021 11/08/2022 Cyst of kidney, acquired [N28.1] 07/22/2021 11/08/2022 Dehydration [E86.0] 02/03/2022 11/08/2022 Deviation of international normalized ratio (IN*09/19/2022 11/08/2022 Elevated liver enzymes [R74.8] 11/11/2021 11/08/2022 Gram-negative bacteremia [R78.81] 02/03/2022 11/08/2022 History of hysterectomy [Z90.710] 09/19/2022 History of surgical procedure [Z98.890] 09/19/2022 11/08/2022 Hypokalemia [E87.6] 07/09/2021 11/08/2022 Hyponatremia [E87.1] 07/09/2021 11/08/2022 Hypophosphatemia [E83.39] 02/03/2022 11/08/2022 Hypoxemia [R09.02] 06/23/2021 11/08/2022 Hypoxia [R09.02] 06/23/2021 11/08/2022 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] 07/22/2021 11/08/2022 Leukocytosis [D72.829] 07/22/2021 11/08/2022 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 11/08/2022 Pneumonia [J18.9] 02/03/2022 11/08/2022 Pyothorax without fistula (HCC) [J86.9] 02/03/2022 11/08/2022 Rheumatoid arthritis, unspecified (HCC) [M06.9] 04/28/2021 Shortness of breath [R06.02] 09/16/2021 11/08/2022 Calculus of gallbladder without cholecystitis w*11/08/2022 History of empyema of pleura [Z87.09] 11/08/2022 History of compression fracture of spine [Z87.8*11/08/2022 Stage 3 chronic kidney disease (HCC) [N18.30] 11/08/2022 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 [K22.70] 02/15/2023 Abdominal bloating [R14.0] 01/10/2023 05/31/2024 Diagnosed: 05/10/2023 Iron deficiency anemia [D50.9] 01/10/2023 Diagnosed: 05/10/2023 Other instructions from your clinician: - Stop taking atorvastatin; it has been documented as an allergy in your record so it will not be prescribed again. - Reduce metoprolol to 25 mg twice daily; your new prescription has been sent to the pharmacy. - Continue taking omeprazole twice a day as you have been. - Continue warfarin (Coumadin) and amiodarone without any changes. - Increase your daily water intake to help prevent dehydration and reduce drops in your blood pressure when you stand. - Attend your scheduled pulmonary function test and chest x-ray at [facility] as arranged by your neurologist. - Complete the lab work for thyroid function and amiodarone monitoring at [facility] when you go for your tests; these orders have been sent to [facility]. - If you decide you?d like home health physical or occupational therapy to assist with balance and walking, please call our office anytime to arrange those services. Screening schedule The following prevention plan is recommended: Shingrix Vaccine(1 of 2) Never done Advance Directive Discussion due on 06/05/2024 Medicare Advantage Annual Wellness Visit Never done Depression Screening due on 11/29/2024 Anxiety Screening due on 11/29/2024 WHAT YOU CAN DO TO PREVENT FALLS Many falls can be prevented. By making some changes, you can lower your chances of falling. Four things YOU can do to prevent falls for you* and your caregiver 1. Begin a regular exercise program Exercise is one of the most important ways to lower your chances of falling. It makes you stronger and helps you feel better. Exercises that improve balance and coordination (like Awais Chi) are the most helpful. Lack of exercise leads to weakness and increases your chances of falling. Ask your doctor or health care provider about the best type of exercise program for you. 2. Have your health care provider review your medicines Have your doctor or pharmacist review all the medicines you take, even xwhu-zbh-gfbbtor medicines. As you get older, the way medicines work in your body can change. Some medicines, or combinations of medicines, can make you sleepy or dizzy and can cause you to fall. 3. Have your vision checked Have your eyes checked by an eye doctor at least once a year. You may be wearing the wrong glasses or have a condition like glaucoma or cataracts that limits your vision. Poor vision can increase your chances of falling. 4. Make your home safer About half of all falls happen at home. To make your home safer: Remove things you can trip over (like papers, books, clothes, and shoes) from stairs and places where you walk. Remove small throw rugs or use double-sided tape to keep the rugs from slipping. Keep items you use often in cabinets you can reach easily without using a step stool. Have grab bars put in next to your toilet and in the tub or shower. Use non-slip mats in the bathtub and on shower floors. Improve the lighting in your home. As you get older, you need brighter lights to see well. Hang light-weight curtains or shades to reduce glare. Have handrails and lights put in on all staircases. Wear shoes both inside and outside the house. Avoid going barefoot or wearing slippers. For more information, contact: Centers for Disease Control and Prevention www.cdc.gov/injury * This information may not apply if you have certain medical conditions. Prescriptions ordered this encounter Disp Refills Start End FUROSEMIDE 40 MG TABLET 90 t* 3 12/13/2024 12/13/2025 Route: PO Sig: Take 1 tablet by mouth once daily. OMEPRAZOLE 20 MG CAPSULE,DELAYED REL* 180 * 3 12/13/2024 12/13/2025 Route: PO Sig: Take 1 capsule by mouth two times a day. METOPROLOL TARTRATE 25 MG TABLET 180 * 3 12/13/2024 12/13/2025 Route: PO Sig: Take 1 tablet by mouth two times a day. Medications Discontinued During This Encounter Prescriptions - atorvastatin (LIPITOR) 20 mg tablet (Discontinued) Take 1 tablet by mouth once daily. - furosemide (LASIX) 40 mg tablet (Discontinued) Take 40 mg by mouth once daily. - omeprazole (PRILOSEC) 40 mg capsule (Discontinued) Take 20 mg by mouth two times a day. - metoprolol tartrate, short acting, (LOPRESSOR) 50 mg tablet (Discontinued) Take 1 tablet by mouth two times a day. Level of Service: PPPS, SUBSEQ VISIT [G0439] Disposition: Return in about 6 months (around 06/15/2025) for routine. Follow-up and Disposition History for Encounter Date Provider Department Center 12/13/2024 [id number] ESCOBAR*BERTIN Anisha [facility] Encounter Status:Closed by MIMI ESCOBAR on 12/13/24 PROGRESS Observed: 11/28/2024 3:26 PM Status: COMPLETED Source: [facility] HNO ID: [id number] Author: MIMI ESCOBAR APRN.TRICIA Service: ? Author Type: Nurse Practitioner Type: Progress Notes Filed: 11/28/2024 15:26 Note Text: Agree with anticoag recommendation PROGRESS Observed: 11/28/2024 2:21 PM Status: COMPLETED Source: [facility] HNO ID: [id number] Author: ABRAHAM POSADAS, RN Service: ? Author Type: Registered Nurse Type: Progress Notes Filed: 11/28/2024 15:26 Note Text: patient had inr completed at [facility] patients inr is 2.5 (patients inr range is 2.0-3.0) patient is currently taking 2mg Mon,Wed, and 3mg all other days patients last dose change was on 03/05/24 due to a high level of 3.4 (dose at that time was 2mg Mon and 3mg all other days) patient has had no changes in medication and no missed doses and no change in diet Advised patient to continue on the same dose(s) and that they would only be contacted regarding dosage and follow up instructions after review with provider, if a change is needed. Written instructions given and patient verbalized understanding. Presently scheduled in 1 month (01/02/25) for follow up INR. CNPN Observed: 11/18/2024 12:00 AM Status: COMPLETED Source: [facility] Telephone (BERTIN) NIMISHA [id number]) 1945 F Date Time Provider Department 11/18/24 WES MAGALLON During your visit today, we recorded the following information about you: Nay Cottrell RN 11/18/2024 2:23 PM Signed Patient calls to let provider know that Dr. Flores is recommending she have an upper endoscopy done with possible biopsy and is recommending the Coumadin be held for 4 days prior to the procedure. Patient was instructed to contact PCP and ask if that would be ok. Patient requests call back at [phone] with provider response. PEYTON Schmidt William J, MD 11/18/2024 4:30 PM Signed Ok to do Usman Martinez RN 11/18/2024 4:43 PM Signed Pt checking on reply and given provider's message below with verbalized understanding. Pt will let Dr. Flores know. Allergies As of Date: 11/18/2024 Noted Allergy Reaction CRESTOR (ROSUVASTATIN CALCIUM) 01/19/2011 14 - Other: See Comments Comments: Myalgia. IBUPROFEN 12/04/2008 14 - Other: See Comments Comments: dizzy PREVNAR 13 (PNEUMOC 13-CHU CONJ-D*07/27/2015 2 - Rash Comments: Presumed reaction to Prevnar. LATEX 12/08/2008 2 - Rash Comments: Local contact rash. Date Reviewed: 03/28/2024 Reviewed by: Mimi Escobar APRN.STITCH SEPARATOR - Fully Assessed Reason for Visit: Patient Question [5807] Prescriptions as of 11/18/2024 - warfarin (COUMADIN) 2 mg tablet take 2mg Mon, Wed and 3mg all other days or as directed pending lab results - metoprolol tartrate, short acting, (LOPRESSOR) 50 mg tablet Take 1 tablet by mouth two times a day. - atorvastatin (LIPITOR) 20 mg tablet Take 1 tablet by mouth once daily. - warfarin (COUMADIN) 3 mg tablet Take 1 tablet by mouth daily as directed. - warfarin (COUMADIN) 3 mg tablet 2mg Mon Wed and 3mg all other days or as directed - warfarin (COUMADIN) 4 mg tablet 2mg Mon and 3mg all other days or as directed - warfarin (COUMADIN) 4 mg tablet 2mg Mon and 3mg all other days or as directed - omeprazole (PRILOSEC) 40 mg capsule Take 1 capsule by mouth once daily. - gabapentin (NEURONTIN) 100 mg capsule Take 1 capsule by mouth two times a day for 180 days. - albuterol HFA (PROVENTIL HFA, VENTOLIN HFA) 90 mcg/actuation inhaler Inhale 2 Puffs as instructed every 4 hours as needed for wheezing/shortness of breath. - warfarin (COUMADIN) 3 mg tablet Take 1 tablet by mouth daily as directed. - Back Brace misc 1 Each once daily. Custom made - amiodarone (PACERONE) 200 mg tablet Take [...] 1 tablet by mouth twice daily. - COMPOUNDED PRESCRIPTION Compression stockings 20-30mmHg [...] Epic data Problem List As Of Date 11/18/2024 Noted Resolved Dysphagia, unspecified(787.20) [R13.10] 05/08/2018 MARFAN'S [...] [R53.83] 11/24/2016 10/10/2017 Lung nodule [R91.1] 06/06/2019 05/31/2024 Chronic systolic heart failure (HCC) [I50.22] 11/21/2019 09/23/2020 Thoracic aorta atherosclerosis (HCC) [I70.0] 03/23/2020 09/23/2020 Pleural effusion, right [J90] 05/05/2020 11/08/2022 Thyroid nodule [E04.1] 05/11/2020 Prediabetes [R73.03] 09/25/2020 Pulmonary hypertension (HCC) [I27.20] 05/11/2021 Moderate mitral regurgitation [I34.0] 06/18/2021 Encounter for support and coordination of trans*07/20/2021 07/26/2022 Pleural effusion [J90] 01/31/2022 04/19/2022 Renal infarct (HCC) [N28.0] 04/19/2022 07/26/2022 Abnormal levels of other serum enzymes [R74.8] 11/11/2021 11/08/2022 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) [I50*09/03/2021 Acute respiratory failure (HCC) [J96.00] 07/22/2021 11/08/2022 Chronic obstructive pulmonary disease (HCC) [J4*04/28/2021 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] 07/22/2021 11/08/2022 Cyst of kidney, acquired [N28.1] 07/22/2021 11/08/2022 Dehydration [E86.0] 02/03/2022 11/08/2022 Deviation of international normalized ratio (IN*09/19/2022 11/08/2022 Elevated liver enzymes [R74.8] 11/11/2021 11/08/2022 Gram-negative bacteremia [R78.81] 02/03/2022 11/08/2022 History of hysterectomy [Z90.710] 09/19/2022 History of surgical procedure [Z98.890] 09/19/2022 11/08/2022 Hypokalemia [E87.6] 07/09/2021 11/08/2022 Hyponatremia [E87.1] 07/09/2021 11/08/2022 Hypophosphatemia [E83.39] 02/03/2022 11/08/2022 Hypoxemia [R09.02] 06/23/2021 11/08/2022 Hypoxia [R09.02] 06/23/2021 11/08/2022 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] 07/22/2021 11/08/2022 Leukocytosis [D72.829] 07/22/2021 11/08/2022 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 11/08/2022 Pneumonia [J18.9] 02/03/2022 11/08/2022 Pyothorax without fistula (HCC) [J86.9] 02/03/2022 11/08/2022 Rheumatoid arthritis, unspecified (HCC) [M06.9] 04/28/2021 Shortness of breath [R06.02] 09/16/2021 11/08/2022 Calculus of gallbladder without cholecystitis w*11/08/2022 History of empyema of pleura [Z87.09] 11/08/2022 History of compression fracture of spine [Z87.8*11/08/2022 Stage 3 chronic kidney disease (HCC) [N18.30] 11/08/2022 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 [K22.70] 02/15/2023 Abdominal bloating [R14.0] 01/10/2023 05/31/2024 Diagnosed: 05/10/2023 Iron deficiency anemia [D50.9] 01/10/2023 Diagnosed: 05/10/2023 Encounter Status:Closed by Usman MARTINEZ on 11/18/24 PROGRESS Observed: 10/31/2024 3:47 PM Status: COMPLETED Source: [facility] HNO ID: [id number] Author: MIMI ESCOBAR APRN.CNP Service: ? Author Type: Nurse Practitioner Type: Progress Notes Filed: 10/31/2024 15:48 Note Text: Agree with anticoag recommendation PROGRESS Observed: 10/31/2024 3:08 PM Status: COMPLETED Source: [facility] HNO ID: [id number] Author: ABRAHAM POSADAS, [place] Service: ? Author Type: Registered Nurse Type: Progress Notes Filed: 10/31/2024 15:48 Note Text: patient had inr completed at [facility] patients inr is 2.5 (patients inr range is 2.0-3.0) patient is currently taking 2mg Mon,Wed and 3mg all other days patients last dose change was on 03/05/24 due to a high level of 3.4 (dose at that time was 2mg Mon and 3mg all other days) patient has had no changes in medication and no missed doses and no change in diet Advised patient to continue on the same dose(s) and that they would only be contacted regarding dosage and follow up instructions after review with provider, if a change is needed. Written instructions given and patient verbalized understanding. Presently scheduled in 4 weeks (11/28/24) for follow up INR. PROGRESS Observed: 10/03/2024 2:55 PM Status: COMPLETED Source: [facility] HNO ID: [id number] Author: WES MAGALLON MD Service: ? Author Type: Physician Type: Progress Notes Filed: 10/03/2024 14:55 Note Text: agree PROGRESS Observed: 10/03/2024 2:53 PM Status: COMPLETED Source: [facility] HNO ID: [id number] Author: ABRAHAM POSADAS, [place] Service: ? Author Type: Registered Nurse Type: Progress Notes Filed: 10/03/2024 14:55 Note Text: patient had inr completed at [facility] patients inr is 2.3 (patients inr range is 2.0-3.0) patient is currently taking 2mg Mon,Wed and 3mg all othee days patients last dose change was on 03/05/24 due to a high level of 3.4 (dose at that time was 2mg Mon and 3mg all other days) patient has had no changes in medication and no missed doses and no change in diet Advised patient to continue on the same dose(s) and that they would only be contacted regarding dosage and follow up instructions after review with provider, if a change is needed. Written instructions given and patient verbalized understanding. Presently scheduled in 4 weeks (10/31/24) for follow up INR. TRICIAN Observed: 09/17/2024 12:00 AM Status: COMPLETED Source: [facility] Telephone (FAMRinglyWS) NIMISHA CEJA ([id number]) 1945 F Date Time Provider Department 09/17/24 WES MAGALLON [facility] During your visit today, we recorded the following information about you: Usman Martinez, RN 09/17/2024 1:28 PM Signed Pt reports pharmacy told her insurance will not cover her atorvastatin. Reports they covered it last time she had it filled. Reports pharmacy ran it through insurance several times, and it was denied. Pharmacy advised pt to call insurance. Pt states she hasn't called them yet, but will call and find out and let pcp know. Allergies As of Date: 09/17/2024 Noted Allergy Reaction CRESTOR (ROSUVASTATIN CALCIUM) 01/19/2011 14 - Other: See Comments Comments: Myalgia. IBUPROFEN 12/04/2008 14 - Other: See Comments Comments: dizzy PREVNAR 13 (PNEUMOC 13-CHU CONJ-D*07/27/2015 2 - Rash Comments: Presumed reaction to Prevnar. LATEX 12/08/2008 2 - Rash Comments: Local contact rash. Date Reviewed: 03/28/2024 Reviewed by: Mimi Escobar APRN.STITCH SEPARATOR - Fully Assessed Reason for Visit: Medication Problem [65] Prescriptions as of 10/10/2024 - warfarin (COUMADIN) 2 mg tablet take 2mg Mon, Wed and 3mg all other days or as directed pending lab results - metoprolol tartrate, short acting, (LOPRESSOR) 50 mg tablet Take 1 tablet by mouth two times a day. - atorvastatin (LIPITOR) 20 mg tablet Take 1 tablet by mouth once daily. - warfarin (COUMADIN) 3 mg tablet Take 1 tablet by mouth daily as directed. - warfarin (COUMADIN) 3 mg tablet 2mg Mon Wed and 3mg all other days or as directed - warfarin (COUMADIN) 4 mg tablet 2mg Mon and 3mg all other days or as directed - warfarin (COUMADIN) 4 mg tablet 2mg Mon and 3mg all other days or as directed - omeprazole (PRILOSEC) 40 mg capsule Take 1 capsule by mouth once daily. - gabapentin (NEURONTIN) 100 mg capsule Take 1 capsule by mouth two times a day for 180 days. - albuterol HFA (PROVENTIL HFA, VENTOLIN HFA) 90 mcg/actuation inhaler Inhale 2 Puffs as instructed every 4 hours as needed for wheezing/shortness of breath. - warfarin (COUMADIN) 3 mg tablet Take 1 tablet by mouth daily as directed. - Back Brace misc 1 Each once daily. Custom made - amiodarone (PACERONE) 200 mg tablet Take [...] 1 tablet by mouth twice daily. - COMPOUNDED PRESCRIPTION Compression stockings 20-30mmHg [...] Epic data Problem List As Of Date 09/17/2024 Noted Resolved Dysphagia, unspecified(787.20) [R13.10] 05/08/2018 MARFAN'S [...] [R53.83] 11/24/2016 10/10/2017 Lung nodule [R91.1] 06/06/2019 05/31/2024 Chronic systolic heart failure (HCC) [I50.22] 11/21/2019 09/23/2020 Thoracic aorta atherosclerosis (HCC) [I70.0] 03/23/2020 09/23/2020 Pleural effusion, right [J90] 05/05/2020 11/08/2022 Thyroid nodule [E04.1] 05/11/2020 Prediabetes [R73.03] 09/25/2020 Pulmonary hypertension (HCC) [I27.20] 05/11/2021 Moderate mitral regurgitation [I34.0] 06/18/2021 Encounter for support and coordination of trans*07/20/2021 07/26/2022 Pleural effusion [J90] 01/31/2022 04/19/2022 Renal infarct (HCC) [N28.0] 04/19/2022 07/26/2022 Abnormal levels of other serum enzymes [R74.8] 11/11/2021 11/08/2022 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) [I50*09/03/2021 Acute respiratory failure (HCC) [J96.00] 07/22/2021 11/08/2022 Chronic obstructive pulmonary disease (HCC) [J4*04/28/2021 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] 07/22/2021 11/08/2022 Cyst of kidney, acquired [N28.1] 07/22/2021 11/08/2022 Dehydration [E86.0] 02/03/2022 11/08/2022 Deviation of international normalized ratio (IN*09/19/2022 11/08/2022 Elevated liver enzymes [R74.8] 11/11/2021 11/08/2022 Gram-negative bacteremia [R78.81] 02/03/2022 11/08/2022 History of hysterectomy [Z90.710] 09/19/2022 History of surgical procedure [Z98.890] 09/19/2022 11/08/2022 Hypokalemia [E87.6] 07/09/2021 11/08/2022 Hyponatremia [E87.1] 07/09/2021 11/08/2022 Hypophosphatemia [E83.39] 02/03/2022 11/08/2022 Hypoxemia [R09.02] 06/23/2021 11/08/2022 Hypoxia [R09.02] 06/23/2021 11/08/2022 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] 07/22/2021 11/08/2022 Leukocytosis [D72.829] 07/22/2021 11/08/2022 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 11/08/2022 Pneumonia [J18.9] 02/03/2022 11/08/2022 Pyothorax without fistula (HCC) [J86.9] 02/03/2022 11/08/2022 Rheumatoid arthritis, unspecified (HCC) [M06.9] 04/28/2021 Shortness of breath [R06.02] 09/16/2021 11/08/2022 Calculus of gallbladder without cholecystitis w*11/08/2022 History of empyema of pleura [Z87.09] 11/08/2022 History of compression fracture of spine [Z87.8*11/08/2022 Stage 3 chronic kidney disease (HCC) [N18.30] 11/08/2022 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 [K22.70] 02/15/2023 Abdominal bloating [R14.0] 01/10/2023 05/31/2024 Diagnosed: 05/10/2023 Iron deficiency anemia [D50.9] 01/10/2023 Diagnosed: 05/10/2023 Encounter Status:Closed by Usman MARTINEZ on 10/10/24 PROGRESS Observed: 09/02/2024 2:48 PM Status: COMPLETED Source: [facility] HNO ID: [id number] Author: WES MAGALLON MD Service: ? Author Type: Physician Type: Progress Notes Filed: 09/02/2024 14:49 Note Text: agree PROGRESS Observed: 09/02/2024 2:46 PM Status: COMPLETED Source: [facility] HNO ID: [id number] Author: ABRAHAM POSADAS RN Service: ? Author Type: Registered Nurse Type: Progress Notes Filed: 09/02/2024 14:49 Note Text: patient had inr completed at [facility] patients inr is 2.5 (patients inr range is 2.0-3.0) patient is currently taking 2mg Mon,Wed and 3mg all other days patients last dose change was on 03/05/24 due to a high level of 3.4 (dose at that time was 2mg Mon, and 3mg all other days) patient has had no changes in medication and no missed doses and no change in diet Advised patient to continue on the same dose(s) and that they would only be contacted regarding dosage and follow up instructions after review with provider, if a change is needed. Written instructions given and patient verbalized understanding. Presently scheduled in 4 weeks (09/30/24) for follow up INR. PROGRESS Observed: 07/29/2024 2:22 PM Status: COMPLETED Source: [facility] HNO ID: [id number] Author: WES MAGALLON MD Service: ? Author Type: Physician Type: Progress Notes Filed: 07/29/2024 14:22 Note Text: agree PROGRESS Observed: 07/29/2024 2:10 PM Status: COMPLETED Source: [facility] HNO ID: [id number] Author: ABRAHAM POSADAS, RN Service: ? Author Type: Registered Nurse Type: Progress Notes Filed: 07/29/2024 14:22 Note Text: patient had inr completed at [facility] patients inr is 2.7 (patients inr range is 2.0-3.0) patient is currently taking 2mg Mon,Wed and 3mg all other days patients last dose change was on 03/05/24 due to a high level of 3.4 (dose that time was 2mg Mon and 3mg all other days) patient has had no changes in medication and no missed doses and no change in diet Advised patient to continue on the same dose(s) and that they would only be contacted regarding dosage and follow up instructions after review with provider, if a change is needed. Written instructions given and patient verbalized understanding. Presently scheduled in 4 weeks (08/26/24) for follow up INR. HEP FUNC 1999 PNL SERPL Collected: 12/2024 11:29 AM Status: F Source: [facility] Order Comment: Specimen Type : BLOOD SPECIMEN Ordering Facility: [facility] Address: [address] [place] [address] TYPE CODE TESTS RESULT OUT OF RANGE REFERENCE UNITS LAB 1751-7(LOINC) Albumin SerPl-mCnc 4.2 3.9-4.9 g/dL LAB 1975-2(LOINC) Bilirub SerPl-mCnc 0.4 0.2-1.3 mg/dL LAB 27399-7(LOINC) Bilirub Conj SerPl-mCnc 0.2 <0.3 mg/dL LAB 6768-6(LOINC) ALP SerPl-cCnc 102 34-123 U/L LAB 1920-8(LOINC) AST SerPl-cCnc 22 13-35 U/L LAB 1742-6(LOINC) ALT SerPl-cCnc 17 7-38 U/L LAB 2885-2(LOINC) Prot SerPl-mCnc 7.4 6.3-8.0 g/dL Performed By: #### 70514-7, 71658-7 #### [facility] CLIA [id number] [address] [place] [address] [place] LIPID 1996 PNL SERPL Collected: 025 11:29 AM Status: F Source: [facility] Order Comment: Specimen Type : BLOOD SPECIMEN Ordering Facility: [facility] Address: [address] [place] [address] TYPE CODE TESTS RESULT OUT OF RANGE REFERENCE UNITS LAB 2093-3(LOINC) Cholest SerPl-mCnc 177 <200 mg/dL Result Comment: <200 mg/dL, Desirable 200-239 mg/dL, Borderline high >239 mg/dL, High LAB 2571-8(LOINC) Trigl SerPl-mCnc 79 <150 mg/dL Result Comment: <150 mg/dL, Normal 150-199 mg/dL, Borderline high 200-499 mg/dL, High >499 mg/dL, Very high LAB 5-9(LOINC) HDLc SerPl-mCnc 67 >39 mg/dL Result Comment: 40-59 mg/dL, Acceptable >59 mg/dL, High: Negative risk factor for coronary heart disease <40 mg/dL, Low: Positive risk factor for coronary heart disease LAB 84813-7(LOINC) NonHDLc SerPl-mCnc 110 <130 mg/dL Result Comment: <130 mg/dL, Optimal 130-159 mg/dL, Near optimal/above optimal 160-189 mg/dL, Borderline high 190-219 mg/dL, High >219 mg/dL, Very high Secondary prevention optimal non HDL Cholesterol levels are recommended to be <100 mg/dL LAB FT FASTING TIME 12 hrs LAB 28050-6(LOINC) VLDLc SerPl Calc-mCnc 16 <30 mg/dL LAB 9830-1(LOINC) Cholest/HDLc SerPl 2.64 <5.10 LAB 2089-1(LOINC) LDLc SerPl-mCnc 94 <100 mg/dL Result Comment: <100 mg/dL, Optimal 100-129 mg/dL, Near optimal/above optimal 130-159 mg/dL, Borderline high 160-189 mg/dL, High >189 mg/dL, Very high Secondary prevention optimal LDL Cholesterol levels are recommended to be < 70 mg/dL LAB 24845-5(LOINC) LDLc/HDLc SerPl 1.40 <2.54 Result Comment: Reference: 1. National Cholesterol Education Program ATP III Guideline At-A-Glance Quick Desk Reference: National Heart, Lung, and Blood [place]. National Institutes of Health. 2001: NIH Publication No. 01-3305. 2. An International Atherosclerosis Society position paper: global recommendations for the management of dyslipidemia: executive summary, Atherosclerosis. 2014: 232(2):410-413. Performed By: #### 96798-7, 35287-7 #### [facility] CLIA [id number] [address] [place] [address] PROGRESS Observed: 06/28/2024 2:06 PM Status: COMPLETED Source: [facility] HNO ID: [id number] Author: WES MAAGLLON MD Service: ? Author Type: Physician Type: Progress Notes Filed: 06/28/2024 14:06 Note Text: agree PROGRESS Observed: 06/28/2024 1:40 PM Status: COMPLETED Source: [facility] HNO ID: [id number] Author: ABRAHAM POSADAS RN Service: ? Author Type: Registered Nurse Type: Progress Notes Filed: 06/28/2024 14:06 Note Text: patient had inr completed at [facility] patients inr is 2.4 (patients inr range is 2.0-3.0) patient is currently taking 2mg Mon,Wed and 3mg all other days patients last dose change was on 03/05/24 due to a high level of 3.4 (dose at that time was 2mg Mon and 3mg all other days) patient has had no changes in medication and no missed doses and no change in diet Advised patient to continue on the same dose(s) and that they would only be contacted regarding dosage and follow up instructions after review with provider, if a change is needed. Written instructions given and patient verbalized understanding. Presently scheduled in 4 weeks (07/25/24) for follow up INR. CNPN Observed: 06/20/2024 12:00 AM Status: COMPLETED Source: [facility] Telephone (FAMPWS) NIMISHA CEJA ([id number]) 1945 F Date Time Provider Department 06/20/24 WES MAGALLON During your visit today, we recorded the following information about you: Usman Martinez, RN 06/20/2024 12:35 PM Signed Patient reports she [facility] today, but is having trouble finding a ride. Pt cancelled the appt and states she will just go to lab when she can find a ride, since there is a standing order in the lab to check INR. Allergies As of Date: 06/20/2024 Noted Allergy Reaction CRESTOR (ROSUVASTATIN CALCIUM) 01/19/2011 14 - Other: See Comments Comments: Myalgia. IBUPROFEN 12/04/2008 14 - Other: See Comments Comments: dizzy PREVNAR 13 (PNEUMOC 13-CHU CONJ-D*07/27/2015 2 - Rash Comments: Presumed reaction to Prevnar. LATEX 12/08/2008 2 - Rash Comments: Local contact rash. Date Reviewed: 03/28/2024 Reviewed by: Mimi Escobar APRN.STITCH SEPARATOR - Fully Assessed Reason for Visit: INR check [Other] Prescriptions as of 06/20/2024 - atorvastatin (LIPITOR) 20 mg tablet Take 1 tablet by mouth once daily. - warfarin (COUMADIN) 3 mg tablet Take 1 tablet by mouth daily as directed. - warfarin (COUMADIN) 3 mg tablet 2mg Mon Wed and 3mg all other days or as directed - warfarin (COUMADIN) 4 mg tablet 2mg Mon and 3mg all other days or as directed - warfarin (COUMADIN) 4 mg tablet 2mg Mon and 3mg all other days or as directed - omeprazole (PRILOSEC) 40 mg capsule Take 1 capsule by mouth once daily. - gabapentin (NEURONTIN) 100 mg capsule Take 1 capsule by mouth two times a day for 180 days. - metoprolol tartrate, short acting, (LOPRESSOR) 50 mg tablet Take 1 tablet by mouth two times a day. - albuterol HFA (PROVENTIL HFA, VENTOLIN HFA) 90 mcg/actuation inhaler Inhale 2 Puffs as instructed every 4 hours as needed for wheezing/shortness of breath. - warfarin (COUMADIN) 3 mg tablet Take 1 tablet by mouth daily as directed. - Back Brace misc 1 Each once daily. Custom made - amiodarone (PACERONE) 200 mg tablet Take [...] 1 tablet by mouth twice daily. - COMPOUNDED PRESCRIPTION Compression stockings 20-30mmHg [...] Epic data Problem List As Of Date 06/20/2024 Noted Resolved Dysphagia, unspecified(787.20) [R13.10] 05/08/2018 MARFAN'S [...] [R53.83] 11/24/2016 10/10/2017 Lung nodule [R91.1] 06/06/2019 05/31/2024 Chronic systolic heart failure (HCC) [I50.22] 11/21/2019 09/23/2020 Thoracic aorta atherosclerosis (HCC) [I70.0] 03/23/2020 09/23/2020 Pleural effusion, right [J90] 05/05/2020 11/08/2022 Thyroid nodule [E04.1] 05/11/2020 Prediabetes [R73.03] 09/25/2020 Pulmonary hypertension (HCC) [I27.20] 05/11/2021 Moderate mitral regurgitation [I34.0] 06/18/2021 Encounter for support and coordination of trans*07/20/2021 07/26/2022 Pleural effusion [J90] 01/31/2022 04/19/2022 Renal infarct (HCC) [N28.0] 04/19/2022 07/26/2022 Abnormal levels of other serum enzymes [R74.8] 11/11/2021 11/08/2022 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) [I50*09/03/2021 Acute respiratory failure (HCC) [J96.00] 07/22/2021 11/08/2022 Chronic obstructive pulmonary disease (HCC) [J4*04/28/2021 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] 07/22/2021 11/08/2022 Cyst of kidney, acquired [N28.1] 07/22/2021 11/08/2022 Dehydration [E86.0] 02/03/2022 11/08/2022 Deviation of international normalized ratio (IN*09/19/2022 11/08/2022 Elevated liver enzymes [R74.8] 11/11/2021 11/08/2022 Gram-negative bacteremia [R78.81] 02/03/2022 11/08/2022 History of hysterectomy [Z90.710] 09/19/2022 History of surgical procedure [Z98.890] 09/19/2022 11/08/2022 Hypokalemia [E87.6] 07/09/2021 11/08/2022 Hyponatremia [E87.1] 07/09/2021 11/08/2022 Hypophosphatemia [E83.39] 02/03/2022 11/08/2022 Hypoxemia [R09.02] 06/23/2021 11/08/2022 Hypoxia [R09.02] 06/23/2021 11/08/2022 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] 07/22/2021 11/08/2022 Leukocytosis [D72.829] 07/22/2021 11/08/2022 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 11/08/2022 Pneumonia [J18.9] 02/03/2022 11/08/2022 Pyothorax without fistula (HCC) [J86.9] 02/03/2022 11/08/2022 Rheumatoid arthritis, unspecified (HCC) [M06.9] 04/28/2021 Shortness of breath [R06.02] 09/16/2021 11/08/2022 Calculus of gallbladder without cholecystitis w*11/08/2022 History of empyema of pleura [Z87.09] 11/08/2022 History of compression fracture of spine [Z87.8*11/08/2022 Stage 3 chronic kidney disease (HCC) [N18.30] 11/08/2022 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 [K22.70] 02/15/2023 Abdominal bloating [R14.0] 01/10/2023 05/31/2024 Diagnosed: 05/10/2023 Iron deficiency anemia [D50.9] 01/10/2023 Diagnosed: 05/10/2023 Encounter Status:Closed by Usman MARTIENZ on 06/20/24 CNPN Observed: 06/17/2024 12:00 AM Status: COMPLETED Source: [facility] Telephone (FAMPWS) NIMISHA CEJA ([id number]) 1945 F Date Time Provider Department 06/17/24 WES MAGALLON During your visit today, we recorded the following information about you: Felisha Ambriz LPN 06/17/2024 3:02 PM Signed Patient calling asking to have Gastro referral faxed to Dr Don Flores office at [phone]. Printed referral, face sheet, office notes and faxed as requested. Allergies As of Date: 06/17/2024 Noted Allergy Reaction CRESTOR (ROSUVASTATIN CALCIUM) 01/19/2011 14 - Other: See Comments Comments: Myalgia. IBUPROFEN 12/04/2008 14 - Other: See Comments Comments: dizzy PREVNAR 13 (PNEUMOC 13-CHU CONJ-D*07/27/2015 2 - Rash Comments: Presumed reaction to Prevnar. LATEX 12/08/2008 2 - Rash Comments: Local contact rash. Date Reviewed: 03/28/2024 Reviewed by: Mimi Escobar APRN.STITCH SEPARATOR - Fully Assessed Reason for Visit: fax Gastro referral to Dr Flores [Other] Prescriptions as of 06/17/2024 - atorvastatin (LIPITOR) 20 mg tablet Take 1 tablet by mouth once daily. - warfarin (COUMADIN) 3 mg tablet Take 1 tablet by mouth daily as directed. - warfarin (COUMADIN) 3 mg tablet 2mg Mon Wed and 3mg all other days or as directed - warfarin (COUMADIN) 4 mg tablet 2mg Mon and 3mg all other days or as directed - warfarin (COUMADIN) 4 mg tablet 2mg Mon and 3mg all other days or as directed - omeprazole (PRILOSEC) 40 mg capsule Take 1 capsule by mouth once daily. - gabapentin (NEURONTIN) 100 mg capsule Take 1 capsule by mouth two times a day for 180 days. - metoprolol tartrate, short acting, (LOPRESSOR) 50 mg tablet Take 1 tablet by mouth two times a day. - albuterol HFA (PROVENTIL HFA, VENTOLIN HFA) 90 mcg/actuation inhaler Inhale 2 Puffs as instructed every 4 hours as needed for wheezing/shortness of breath. - warfarin (COUMADIN) 3 mg tablet Take 1 tablet by mouth daily as directed. - Back Brace misc 1 Each once daily. Custom made - amiodarone (PACERONE) 200 mg tablet Take [...] 1 tablet by mouth twice daily. - COMPOUNDED PRESCRIPTION Compression stockings 20-30mmHg [...] Epic data Problem List As Of Date 06/17/2024 Noted Resolved Dysphagia, unspecified(787.20) [R13.10] 05/08/2018 MARFAN'S [...] [R53.83] 11/24/2016 10/10/2017 Lung nodule [R91.1] 06/06/2019 05/31/2024 Chronic systolic heart failure (HCC) [I50.22] 11/21/2019 09/23/2020 Thoracic aorta atherosclerosis (HCC) [I70.0] 03/23/2020 09/23/2020 Pleural effusion, right [J90] 05/05/2020 11/08/2022 Thyroid nodule [E04.1] 05/11/2020 Prediabetes [R73.03] 09/25/2020 Pulmonary hypertension (HCC) [I27.20] 05/11/2021 Moderate mitral regurgitation [I34.0] 06/18/2021 Encounter for support and coordination of trans*07/20/2021 07/26/2022 Pleural effusion [J90] 01/31/2022 04/19/2022 Renal infarct (HCC) [N28.0] 04/19/2022 07/26/2022 Abnormal levels of other serum enzymes [R74.8] 11/11/2021 11/08/2022 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) [I50*09/03/2021 Acute respiratory failure (HCC) [J96.00] 07/22/2021 11/08/2022 Chronic obstructive pulmonary disease (HCC) [J4*04/28/2021 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] 07/22/2021 11/08/2022 Cyst of kidney, acquired [N28.1] 07/22/2021 11/08/2022 Dehydration [E86.0] 02/03/2022 11/08/2022 Deviation of international normalized ratio (IN*09/19/2022 11/08/2022 Elevated liver enzymes [R74.8] 11/11/2021 11/08/2022 Gram-negative bacteremia [R78.81] 02/03/2022 11/08/2022 History of hysterectomy [Z90.710] 09/19/2022 History of surgical procedure [Z98.890] 09/19/2022 11/08/2022 Hypokalemia [E87.6] 07/09/2021 11/08/2022 Hyponatremia [E87.1] 07/09/2021 11/08/2022 Hypophosphatemia [E83.39] 02/03/2022 11/08/2022 Hypoxemia [R09.02] 06/23/2021 11/08/2022 Hypoxia [R09.02] 06/23/2021 11/08/2022 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] 07/22/2021 11/08/2022 Leukocytosis [D72.829] 07/22/2021 11/08/2022 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 11/08/2022 Pneumonia [J18.9] 02/03/2022 11/08/2022 Pyothorax without fistula (HCC) [J86.9] 02/03/2022 11/08/2022 Rheumatoid arthritis, unspecified (HCC) [M06.9] 04/28/2021 Shortness of breath [R06.02] 09/16/2021 11/08/2022 Calculus of gallbladder without cholecystitis w*11/08/2022 History of empyema of pleura [Z87.09] 11/08/2022 History of compression fracture of spine [Z87.8*11/08/2022 Stage 3 chronic kidney disease (HCC) [N18.30] 11/08/2022 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 [K22.70] 02/15/2023 Abdominal bloating [R14.0] 01/10/2023 05/31/2024 Diagnosed: 05/10/2023 Iron deficiency anemia [D50.9] 01/10/2023 Diagnosed: 05/10/2023 Encounter Status:Closed by FELISHA AMBRIZ on 06/17/24 CNPN Observed: 06/03/2024 12:00 AM Status: COMPLETED Source: [facility] NIMISHA CEJA ([id number]) 1945 F Date Time Provider Department 06/03/24 WES MAGALLON [facility] During your visit today, we recorded the following information about you: Wes Magallon MD 06/03/2024 11:58 AM Signed Labs are stable, except her cholesterol is up. She had issues with crestor in the past, would she be willing to try a different one like lipitor? Debbie Long MA 06/03/2024 12:24 PM Signed Patient is willing to try medication. Please send to drug [facility]. She is aware will need to repeat labs in 6-8 weeks Debbie Long MA June 03, 2024 12:23 PM Allergies As of Date: 06/03/2024 Noted Allergy Reaction CRESTOR (ROSUVASTATIN CALCIUM) 01/19/2011 14 - Other: See Comments Comments: Myalgia. IBUPROFEN 12/04/2008 14 - Other: See Comments Comments: dizzy PREVNAR 13 (PNEUMOC 13-CHU CONJ-D*07/27/2015 2 - Rash Comments: Presumed reaction to Prevnar. LATEX 12/08/2008 2 - Rash Comments: Local contact rash. Date Reviewed: 03/28/2024 Reviewed by: MIMI ESCOBAR - Fully Assessed Reason for Visit: Results [95] Primary Visit Diagnosis:Hyperlipidemia, unspecified hyperlipidemia type [E78.5] Order(s):atorvastatin (LIPITOR) 20 mg tabletTake 1 tablet by mouth once daily.Disp: 90 tabletRfl: 3 HEPATIC FUNCTION PNL [SQHFP] Order #: [id number] FUTURE LIPID PANEL BASIC [SQLIPB] Order #: [id number] FUTURE Prescriptions as of 06/03/2024 - atorvastatin (LIPITOR) 20 mg tablet Take 1 tablet by mouth once daily. - warfarin (COUMADIN) 3 mg tablet Take 1 tablet by mouth daily as directed. - warfarin (COUMADIN) 3 mg tablet 2mg Mon Wed and 3mg all other days or as directed - warfarin (COUMADIN) 4 mg tablet 2mg Mon and 3mg all other days or as directed - warfarin (COUMADIN) 4 mg tablet 2mg Mon and 3mg all other days or as directed - omeprazole (PRILOSEC) 40 mg capsule Take 1 capsule by mouth once daily. - gabapentin (NEURONTIN) 100 mg capsule Take 1 capsule by mouth two times a day for 180 days. - metoprolol tartrate, short acting, (LOPRESSOR) 50 mg tablet Take 1 tablet by mouth two times a day. - albuterol HFA (PROVENTIL HFA, VENTOLIN HFA) 90 mcg/actuation inhaler Inhale 2 Puffs as instructed every 4 hours as needed for wheezing/shortness of breath. - warfarin (COUMADIN) 3 mg tablet Take 1 tablet by mouth daily as directed. - Back Brace misc 1 Each once daily. Custom made - amiodarone (PACERONE) 200 mg tablet Take [...] 1 tablet by mouth twice daily. - COMPOUNDED PRESCRIPTION Compression stockings 20-30mmHg [...] Epic data Problem List As Of Date 06/03/2024 Noted Resolved Dysphagia, unspecified(787.20) [R13.10] 05/08/2018 MARFAN'S [...] [R53.83] 11/24/2016 10/10/2017 Lung nodule [R91.1] 06/06/2019 05/31/2024 Chronic systolic heart failure (HCC) [I50.22] 11/21/2019 09/23/2020 Thoracic aorta atherosclerosis (HCC) [I70.0] 03/23/2020 09/23/2020 Pleural effusion, right [J90] 05/05/2020 11/08/2022 Thyroid nodule [E04.1] 05/11/2020 Prediabetes [R73.03] 09/25/2020 Pulmonary hypertension (HCC) [I27.20] 05/11/2021 Moderate mitral regurgitation [I34.0] 06/18/2021 Encounter for support and coordination of trans*07/20/2021 07/26/2022 Pleural effusion [J90] 01/31/2022 04/19/2022 Renal infarct (HCC) [N28.0] 04/19/2022 07/26/2022 Abnormal levels of other serum enzymes [R74.8] 11/11/2021 11/08/2022 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) [I50*09/03/2021 Acute respiratory failure (HCC) [J96.00] 07/22/2021 11/08/2022 Chronic obstructive pulmonary disease (HCC) [J4*04/28/2021 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] 07/22/2021 11/08/2022 Cyst of kidney, acquired [N28.1] 07/22/2021 11/08/2022 Dehydration [E86.0] 02/03/2022 11/08/2022 Deviation of international normalized ratio (IN*09/19/2022 11/08/2022 Elevated liver enzymes [R74.8] 11/11/2021 11/08/2022 Gram-negative bacteremia [R78.81] 02/03/2022 11/08/2022 History of hysterectomy [Z90.710] 09/19/2022 History of surgical procedure [Z98.890] 09/19/2022 11/08/2022 Hypokalemia [E87.6] 07/09/2021 11/08/2022 Hyponatremia [E87.1] 07/09/2021 11/08/2022 Hypophosphatemia [E83.39] 02/03/2022 11/08/2022 Hypoxemia [R09.02] 06/23/2021 11/08/2022 Hypoxia [R09.02] 06/23/2021 11/08/2022 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] 07/22/2021 11/08/2022 Leukocytosis [D72.829] 07/22/2021 11/08/2022 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 11/08/2022 Pneumonia [J18.9] 02/03/2022 11/08/2022 Pyothorax without fistula (HCC) [J86.9] 02/03/2022 11/08/2022 Rheumatoid arthritis, unspecified (HCC) [M06.9] 04/28/2021 Shortness of breath [R06.02] 09/16/2021 11/08/2022 Calculus of gallbladder without cholecystitis w*11/08/2022 History of empyema of pleura [Z87.09] 11/08/2022 History of compression fracture of spine [Z87.8*11/08/2022 Stage 3 chronic kidney disease (HCC) [N18.30] 11/08/2022 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 [K22.70] 02/15/2023 Abdominal bloating [R14.0] 01/10/2023 05/31/2024 Diagnosed: 05/10/2023 Iron deficiency anemia [D50.9] 01/10/2023 Diagnosed: 05/10/2023 Prescriptions ordered this encounter Disp Refills Start End ATORVASTATIN 20 MG TABLET 90 t* 3 06/03/2024 06/03/2025 Route: ORAL Sig: Take 1 tablet by mouth once daily. Encounter Status:Closed by WES MAGALLON on 06/03/24 CBC W AUTO DIFF BLD Collected: 05/31/2024 2:[address] atus: F Source: [facility] Order Comment: Specimen Type : BLOOD SPECIMEN Ordering Facility: [facility] Address: [address] [place] [address] TYPE CODE TESTS RESULT OUT OF RANGE REFERENCE UNITS LAB 6690-2(LOINC) WBC # Bld Auto 7.65 3.70-11.00 k/uL LAB 789-8(LOINC) RBC # Bld Auto 5.13 3.90-5.20 m/ uL LAB 718-7(LOINC) Hgb Bld-mCnc 14.4 11.5-15.5 g/dL LAB 4544-3(LOINC) Hct VFr Bld Auto 46.2 High 36.0-46.0 % LAB 787-2(LOINC) MCV RBC Auto 90.1 80.0-100.0 fL LAB 785-6(LOINC) MCH RBC Qn Auto 28.1 26.0-34.0 p g LAB 786-4(LOINC) MCHC RBC Auto-mCnc 31.2 30.5-36.0 g/dL LAB 99151-6(LOINC) RDW RBC-Rto 15.3 High 11.5-15.0 % LAB 777-3(LOINC) Platelet # Bld Auto 336 150-400 k/uL LAB 56436-3(LOINC) PMV Bld Auto 9.4 9.0-12.7 fL LAB 770-8(LOINC) Neutrophils/leuk NFr Bld Auto 62.1 % LAB 751-8(LOINC) Neutrophils # Bld Auto 4.75 1.45-7.50 k/uL LAB 736-9(LOINC) Lymphocytes/leuk NFr Bld Auto 20.1 % LAB 731-0(LOINC) Lymphocytes # Bld Auto 1.54 1.00-4.00 k/uL LAB 5905-5(LOINC) Monocytes/leuk NFr Bld Auto 14.1 % LAB 742-7(LOINC) Monocytes # Bld Auto 1.08 High <0.87 k/uL LAB 713-8(LOINC) Eosinophil/leuk NFr Bld Auto 2.2 % LAB 711-2(LOINC) Eosinophil # Bld Auto 0.17 <0.46 k/uL LAB 706-2(INC) Basophils/leuk NFr Bld Auto 1.2 % LAB 704-7(LOINC) Basophils # Bld Auto 0.09 <0.11 k/uL LAB 70756-1(LOINC) Imm Granulocytes/srinivasa k NFr Bld Auto 0.3 % LAB 68478-9([facility]) Imm Granulocytes # Bld Auto <0.03 <0.10 k/uL LAB 49003-1(INC) nRBC/100 WBC Bld-Rto 0.0 /100 WBC LAB 771-6([facility]) nRBC # Bld Auto <0.01 <0.01 k/u L LAB 58710-1([facility]) Differential method Bld Auto Performed By: #### [id number] # ### [facility] CLIA [id number] [address] [place] [address] [place] DEPRECATED HGB A1C BLD Collected: 05/31 2:51 PM Status: F Source: [facility] Order Comment: Specimen Type : BLOOD SPECIMEN Ordering Facility: [facility] Address: [address] [place] [address] TYPE CODE TESTS RESULT OUT OF RANGE REFERENCE UNITS LAB 4548-4([facility]) HbA1c MFr Bld 5.9 High 4.3-5.6 % Result Comment: [place] Lanie betes Association guidelines indicate that patients with HgbA1c in the range 5.7-6.4% are at increased risk for development of diabetes, and intervention by lifestyle modification may be beneficial. HgbA1c greater or equal to 6.5% is considered diagnostic of diabetes. LAB 27389-7(LOINC) Est. average glucose Bld gHb Est-mCnc 123 mg/dL Result Comment: eAG: (Estima jil average glucose) is a calculated value from HgbA1c and is malt liquors sales representative of the average blood glucose level in the last 2-3 month period. Performed By: #### [id number] # ### [facility] CLIA [id number] [address] [place], [place] [address] [address] [place] COMP METAB 2000 PNL SERPL Collected: 2:51 PM Status: F Source: [facility] Order Comment: Specimen Type : BLOOD SPECIMEN Ordering Facility: [facility] Address: [address] [place] [address] TYPE CODE TESTS RESULT OUT OF RANGE REFERENCE UNITS LAB 2885-2(LOINC) Prot SerPl-mCnc 7.6 6.3-8.0 g/dL LAB 1751-7(LOINC) Albumin SerPl-mCnc 4.3 3.9-4.9 g/dL LAB 91575-7(LOINC) Calcium SerPl-mCnc 9.0 8.5-10.2 mg/dL LAB 1975-2(LOINC) Bilirub SerPl-mCnc 0.5 0.2-1.3 mg/dL LAB 6768-6(INC) ALP SerPl-cCnc 101 34-123 U/L LAB 1920-8(LOINC) AST SerPl-cCnc 22 13-35 U/L LAB 1742-6(LOINC) ALT SerPl-cCnc 13 7-38 U/L LAB 2345-7(LOINC) Glucose SerPl-mCnc 105 High 74-99 mg/dL Result Comment: The [place] Diabetes Association (ADA) provides guidance for cutoff values for fasting glucose and random glucose. The ADA defines fasting as no caloric intake for at least 8 hours. Fasting plasma glucose results between 100 to 125 mg/dL indicate increased risk for diabetes (prediabetes). Fasting plasma glucose results greater than or equal to 126 mg/dL meet the criteria for diagnosis of diabetes. In the absence of unequivocal hyperglycemia, results should be confirmed by repeat testing. In a patient with classic symptoms of hyperglycemia or hyperglycemic crisis, random plasma glucose results greater than or equal to 200 mg/dL meet the criteria for diagnosis of diabetes. Reference: Standards of Medical Care in Diabetes 2016, [place] Diabetes Association. Diabetes Care. 2016.39(Suppl 1). LAB 3094-0(LOINC) BUN SerPl-mCnc 13 7-21 mg/ dL LAB 2160-0(LOINC) Creat SerPl-mCnc 0.81 0.58-0.96 mg/dL LAB 2951-2(LOINC) Sodium SerPl-sCnc 136 136-144 mmol/L LAB 2823-3(LOINC) Potassium SerPl-sCnc 4.4 3.7-5.1 mmol/L LAB 2075-0(LOINC) Chloride SerPl-sCnc 99 98-107 mmol/L LAB 2028-9(LOINC) CO2 SerPl-sCnc 24 22-30 mmo l/L LAB 86347-5(LOINC) Anion Gap SerPl-sCnc 13 8-15 mmol/L LAB 81751-0(LOINC) Creatinine + eGFR Pnl SerPlBld 74 >=60 mL/min/1 .73m??? Result Comment: Estimated Gl omerular Filtration Rate (eGFR) is calculated using the 2020 CKD-EPI creatinine equation. This equation utilizes serum creatinine, sex, and age as parameters. The creatinine assay has traceable calibration to isotope dilution-mass spectrometry. Refer to KDIGO guidelines for clinical interpretation. In patients with unstable renal function, e.g. those with acute kidney injury, the eGFR may not accurately reflect actual GFR. Performed By: #### 34490-9, LIPNF #### [facility] CLIA [id number] [address] [place] [address] [place] LIPID PANEL, NONFASTING Collected: 05/31/2024 2:51 PM Status: F Source: [facility] Order Comment: Specimen Type : BLOOD SPECIMEN Ordering Facility: [facility] Address: [address] [place] [address] TYPE CODE TESTS RESULT OUT OF RANGE REFERENCE UNITS LAB CHOLNF TOTAL CHOLESTEROL NF 243 High <200 mg/dL Result Comment: <200 mg/dL, Desirable 200-239 mg/dL, Borderline high >239 mg/dL, High LAB TRIGNF TRIGLYCERIDES, NF 143 <150 mg/dL Result Comment: <150 mg/dL, Normal 150-199 mg/dL, Borderline high 200-499 mg/dL, High >499 mg/dL, Very high LAB HDLNF HDL CHOLESTEROL, NF 70 >39 mg/dL Result Comment: 40-59 mg/dL, Acceptable >59 mg/dL, High: Negative risk factor for coronary heart disease <40 mg/dL, Low: Positive risk factor for coronary heart disease LAB LDLNF LDL CHOLESTEROL, NF 144 High <100 mg/dL Result Comment: <100 mg/dL, Optimal 100-129 mg/dL, Near optimal/above optimal 130-159 mg/dL, Borderline high 160-189 mg/dL, High >189 mg/dL, Very high Secondary prevention optimal LDL Cholesterol levels are recommended to be < 70 mg/dL LAB NOHDLN NON HDL CHOL, NF 173 High <130 mg/dL Result Comment: <130 mg/dL, Optimal 130-159 mg/dL, Near optimal/above optimal 160-189 mg/dL, Borderline high 190-219 mg/dL, High >219 mg/dL, Very high Secondary prevention optimal non HDL Cholesterol levels are recommended to be <100 mg/dL LAB VLDLNF VLDL CHOLESTEROL, NF 29 <30 mg/dL LAB TCHDLN T CHOL/HDL RATIO NF 3.47 <5.10 mg/dL LAB LDLHDN LDL/HDL RATIO, NF 2.06 <2.54 mg/dL Result Comment: Reference: 1. National Cholesterol Education Program ATP III Guideline At-A-Glance Quick Desk Reference: National Heart, Lung, and Blood [place]. National Institutes of Health. 2001: NIH Publication No. 01-3305. 2. An International Atherosclerosis Society position paper: global recommendations for the management of dyslipidemia: executive summary, Atherosclerosis. 2014: 232(2):410-413. Performed By: #### 76945-6, LIPNF #### [facility] CLIA [id number] [address] [place] [address] [place] CNOV Observed: 05/31/2024 2:00 PM Status: COMPLETED Source: [facility] Office Visit ([facility] NIMISHA CEJA ([id number]) 1945 F Date Time Provider Department 05/31/24 2:00 PM WES MAGALLON During your visit today, we recorded the following information about you: Pulse Blood pressure Weight 91/minute 108/64 55.8 kg Wes Magallon MD 05/31/2024 2:16 PM Signed Patient presents with: 6 Month Exam HPI: Patient presents today for office visit for follow up. Back pain has been controlled pretty well. Did have a flare up recently but has seemed to calm down now. Using the gabapentin that helps her. ANTICOAGULATION: Patient is on warfarin for Afib. Length of treatment: lifetime. Bleeding or bruising No. Monitored by our office: Yes. [facility] Up to date on inr checks Yes. States that sleep has been good. HTN: Patient is compliant with meds Yes Monitors bp at home: Yes. Denies side effects: Yes. Chest pain: No. Dyspnea: No. Edema: taking lasix once daily. Uses potassium only when taking the lasix. Controlled. Doesn't wear compression stockings often but does have them. Palpitations: No. Syncope: No. Headache: No. Dizziness: Rarely when standing too fast so she is careful Sees [facility]. GERD: Patient takes: omeprazole Heartburn is controlled: Yes. Bloody or black stools: No. Bowel changes: No. Her surgeon had wanted her to follow with gi due to her severe mata's. Both he and I had referred her and she did not go. Reinforced importance of doing so. Had thyroid FNA per Dr Evans. He has since retired. Needs follow up us. Hospital has the order in place. Pulm: Rare use of albuterol inhaler. No longer has to see pulmonary. No coughing or wheezing. MEDICATIONS: Current Outpatient Medications Medication Sig omeprazole (PRILOSEC) 40 mg capsule Take 1 capsule by mouth once daily. gabapentin (NEURONTIN) 100 mg capsule Take 1 capsule by mouth two times a day for 180 days. metoprolol tartrate, short acting, (LOPRESSOR) 50 mg tablet Take 1 tablet by mouth two times a day. albuterol HFA (PROVENTIL HFA, VENTOLIN HFA) 90 mcg/actuation inhaler Inhale 2 Puffs as instructed every 4 hours as needed for wheezing/shortness of breath. amiodarone (PACERONE) 200 mg tablet Take 0.5 tablets by mouth once daily. dilTIAZem CD (CARDIZEM CD, CARTIA XT) 240 mg 24 hr capsule Take 240 mg by mouth once daily. furosemide (LASIX) 40 mg tablet Take 1 tablet by mouth twice daily. potassium chloride 20 mEq TbER Take 1 tablet by mouth twice daily. CALCIUM CARBONATE (CALCIUM 600 ORAL) Take 1 tablet by mouth once daily. MULTIVITAMIN ORAL Take 1 tablet by mouth once daily. warfarin (COUMADIN) 3 mg tablet 2mg Mon Wed and 3mg all other days or as directed warfarin (COUMADIN) 4 mg tablet 2mg Mon and 3mg all other days or as directed warfarin (COUMADIN) 4 mg tablet 2mg Mon and 3mg all other days or as directed warfarin (COUMADIN) 3 mg tablet Take 1 tablet by mouth daily as directed. Back Brace misc 1 Each once daily. Custom made WALKER ROLLATOR SEAT WITH 6 WHEELS - RED Daily use R26.81 Gait instability (primary encounter diagnosis) COMPOUNDED PRESCRIPTION Compression stockings 20-30mmHg 2 pair I83.813 Varicose veins of both lower extremities with pain No current facility-administered medications for this visit. [...] mitral regurgitation 06/18/2021 04/27/21 Echo at [facility]. Pleural effusion, right 05/05/2020 CXR 11/18/19 and [...] home until about 2003. Vaping Use Vaping status: Never Used Substance Use Topics Alcohol use: No Drug use: No Reviewed current medications, allergies, past medical history, surgical history, family history and social history today. REVIEW OF SYSTEMS All other reviewed and negative other than HPI. HEALTH MAINTENANCE: Reviewed health maintenance issues today and recommended the following in detail. RSV Vaccine(1 - 1-dose 75+ series) Never done Advance Directive Discussion due on 06/05/2023 VITALS: BP 108/64 Pulse 91 Wt 55.8 kg (123 lb) SpO2 96% BMI 23.24 kg/m? Last 4 Encounter Wt Readings: Date: Wt: 11/30/2023 56.7 kg (125 lb) 07/25/2023 56.7 kg (125 lb) 07/10/2023 58.1 kg (128 lb) 05/10/2023 56.3 kg (124 lb 3.2 oz) PHYSICAL EXAMINATION: General appearance: Well appearing, alert, in no acute distress, well-hydrated, well nourished. Skin: Skin color, texture, turgor normal, no suspicious rashes or lesions Head: Normocephalic, no masses, lesions, tenderness or abnormalities Eyes: Anicteric sclera. Pupils are equally round and reactive to light. Extraocular movements are intact. Back: Normal exam Lungs: Lungs clear to auscultation. No wheezing, rhonchi, rales Heart: RRR without murmur, gallop, or rubs. No ectopy Abdomen: Normal abdominal exam, Abdomen soft, non-tender. Bowel sounds normal. No masses, organomegaly Extremities: No deformities, edema, skin discoloration, clubbing or cyanosis. Good capillary refill. Musculoskeletal: No joint swelling, deformity, or tenderness ASSESSMENT/PLAN: 1. Hypertension, essential - ICD9: 401.9, ICD10: I10 (primary diagnosis) - Controlled - Continue current medications 2. Paroxysmal atrial fibrillation (HCC) - ICD9: 427.31, ICD10: I48.0 - stable. Follow with cardiology. - WARFARIN 3 MG TABLET 3. 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) - ICD9: 428.0, ICD10: I50.813 - looks stable today. 4. Hyperlipidemia, unspecified hyperlipidemia type - ICD9: 272.4, ICD10: E78.5 - Controlled - Counseled on healthy diet and regular exercise - LIPID PANEL, NONFASTING 5. Chronic obstructive pulmonary disease with acute lower respiratory infection (HCC) - ICD9: 496, 519.8, ICD10: J44.0 - doing well. 6. Stage 3 chronic kidney disease, unspecified whether stage 3a or 3b CKD (HCC) - ICD9: 585.3, ICD10: N18.30 - follow up. - COMPLETE BLOOD COUNT AND DIFFERENTIAL - COMPREHENSIVE METABOLIC PANEL - LIPID PANEL, NONFASTING 7. 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 - ICD9: 530.85, ICD10: K22.70 - remains on meds. Reinforced need to see gi. - CONSULT TO GASTROENTEROLOGY 8. Marfan's syndrome - ICD9: 759.82, ICD10: Q87.40 - stalbe. 9. Rheumatoid arthritis, involving unspecified site, unspecified whether rheumatoid factor present (HCC) - ICD9: 714.0, ICD10: M06.9 - doing well. Does not currently see rheum. 10. History of polymyalgia rheumatica - ICD9: V13.59, ICD10: Z87.39 - in remission. 11. Chronic anticoagulation - ICD9: V58.61, ICD10: Z79.01 - doing well. 12. Prediabetes - ICD9: 790.29, ICD10: R73.03 - HEMOGLOBIN A1C 13. Thyroid nodule - ICD9: 241.0, ICD10: E04.1 - per surgery at [place]. Wes Magallon MD Allergies As of Date: 05/31/2024 Noted Allergy Reaction CRESTOR (ROSUVASTATIN CALCIUM) 01/19/2011 14 - Other: See Comments Comments: Myalgia. IBUPROFEN 12/04/2008 14 - Other: See Comments Comments: dizzy PREVNAR 13 (PNEUMOC 13-CHU CONJ-D*07/27/2015 2 - Rash Comments: Presumed reaction to Prevnar. LATEX 12/08/2008 2 - Rash Comments: Local contact rash. Date Reviewed: 03/28/2024 Reviewed by: Mimi Escboar APRN.STITCH SEPARATOR - Fully Assessed Reason for Visit: 6 Month Exam [189] Primary Visit Diagnosis:Hypertension, essential [I10] Other Visit Diagnoses:Paroxysmal atrial fibrillation (HCC) [I48.0] 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) [I50.813] Hyperlipidemia, unspecified hyperlipidemia type [E78.5] Chronic obstructive pulmonary disease with acute lower respiratory infection (HCC) [J44.0] Stage 3 chronic kidney disease, unspecified whether stage 3a or 3b CKD (HCC) [N18.30] 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 [K22.70] Marfan's syndrome [Q87.40] Rheumatoid arthritis, involving unspecified site, unspecified whether rheumatoid factor present (HCC) [M06.9] History of polymyalgia rheumatica [Z87.39] Chronic anticoagulation [Z79.01] Prediabetes [R73.03] Thyroid nodule [E04.1] Order(s):ADVANCE CARE PLAN DISCUSSION [0396439] Order #: [id number]: 1 COMPLETE BLOOD COUNT AND DIFFERENTIAL [SQCBCDIF] Order #: [id number] FUTURE COMPREHENSIVE METABOLIC PANEL [SQCMP] Order #: [id number] FUTURE LIPID PANEL, NONFASTING [SQLIPNF] Order #: [id number] FUTURE HEMOGLOBIN A1C [ZLQHO9N] Order #: [id number] FUTURE CONSULT TO GASTROENTEROLOGY [9010] Order #: [id number]: 1 FUTURE Prescriptions as of 05/31/2024 - warfarin (COUMADIN) 3 mg tablet Take 1 tablet by mouth daily as directed. - warfarin (COUMADIN) 3 mg tablet 2mg Mon Wed and 3mg all other days or as directed - warfarin (COUMADIN) 4 mg tablet 2mg Mon and 3mg all other days or as directed - warfarin (COUMADIN) 4 mg tablet 2mg Mon and 3mg all other days or as directed - omeprazole (PRILOSEC) 40 mg capsule Take 1 capsule by mouth once daily. - gabapentin (NEURONTIN) 100 mg capsule Take 1 capsule by mouth two times a day for 180 days. - metoprolol tartrate, short acting, (LOPRESSOR) 50 mg tablet Take 1 tablet by mouth two times a day. - albuterol HFA (PROVENTIL HFA, VENTOLIN HFA) 90 mcg/actuation inhaler Inhale 2 Puffs as instructed every 4 hours as needed for wheezing/shortness of breath. - warfarin (COUMADIN) 3 mg tablet Take 1 tablet by mouth daily as directed. - Back Brace misc 1 Each once daily. Custom made - amiodarone (PACERONE) 200 mg tablet Take [...] 1 tablet by mouth twice daily. - COMPOUNDED PRESCRIPTION Compression stockings 20-30mmHg [...] Epic data Problem List As Of Date 05/31/2024 Noted Resolved Dysphagia, unspecified(787.20) [R13.10] 05/08/2018 MARFAN'S [...] [R53.83] 11/24/2016 10/10/2017 Lung nodule [R91.1] 06/06/2019 05/31/2024 Chronic systolic heart failure (HCC) [I50.22] 11/21/2019 09/23/2020 Thoracic aorta atherosclerosis (HCC) [I70.0] 03/23/2020 09/23/2020 Pleural effusion, right [J90] 05/05/2020 11/08/2022 Thyroid nodule [E04.1] 05/11/2020 Prediabetes [R73.03] 09/25/2020 Pulmonary hypertension (HCC) [I27.20] 05/11/2021 Moderate mitral regurgitation [I34.0] 06/18/2021 Encounter for support and coordination of trans*07/20/2021 07/26/2022 Pleural effusion [J90] 01/31/2022 04/19/2022 Renal infarct (HCC) [N28.0] 04/19/2022 07/26/2022 Abnormal levels of other serum enzymes [R74.8] 11/11/2021 11/08/2022 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) [I50*09/03/2021 Acute respiratory failure (HCC) [J96.00] 07/22/2021 11/08/2022 Chronic obstructive pulmonary disease (HCC) [J4*04/28/2021 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] 07/22/2021 11/08/2022 Cyst of kidney, acquired [N28.1] 07/22/2021 11/08/2022 Dehydration [E86.0] 02/03/2022 11/08/2022 Deviation of international normalized ratio (IN*09/19/2022 11/08/2022 Elevated liver enzymes [R74.8] 11/11/2021 11/08/2022 Gram-negative bacteremia [R78.81] 02/03/2022 11/08/2022 History of hysterectomy [Z90.710] 09/19/2022 History of surgical procedure [Z98.890] 09/19/2022 11/08/2022 Hypokalemia [E87.6] 07/09/2021 11/08/2022 Hyponatremia [E87.1] 07/09/2021 11/08/2022 Hypophosphatemia [E83.39] 02/03/2022 11/08/2022 Hypoxemia [R09.02] 06/23/2021 11/08/2022 Hypoxia [R09.02] 06/23/2021 11/08/2022 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] 07/22/2021 11/08/2022 Leukocytosis [D72.829] 07/22/2021 11/08/2022 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 11/08/2022 Pneumonia [J18.9] 02/03/2022 11/08/2022 Pyothorax without fistula (HCC) [J86.9] 02/03/2022 11/08/2022 Rheumatoid arthritis, unspecified (HCC) [M06.9] 04/28/2021 Shortness of breath [R06.02] 09/16/2021 11/08/2022 Calculus of gallbladder without cholecystitis w*11/08/2022 History of empyema of pleura [Z87.09] 11/08/2022 History of compression fracture of spine [Z87.8*11/08/2022 Stage 3 chronic kidney disease (HCC) [N18.30] 11/08/2022 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 [K22.70] 02/15/2023 Abdominal bloating [R14.0] 01/10/2023 05/31/2024 Diagnosed: 05/10/2023 Iron deficiency anemia [D50.9] 01/10/2023 Diagnosed: 05/10/2023 Disposition: Return for for physical(40 min) in six months. Follow-up and Disposition History for Encounter Date Provider Department Center 05/31/2024 [id number] MAGALLON [facility] Encounter Status:Closed by WES MAGALLON on 05/31/24 PROGRESS Observed: 05/31/2024 1:47 PM Status: COMPLETED [id number] Author: WES MAGALLON MD Service: ? Author Type: Physician Type: Progress Notes Filed: 05/31/2024 14:16 Note Text: Patient presents with: 6 Month Exam HPI: Patient presents today for office visit for follow up. Back pain has been controlled pretty well. Did have a flare up recently but has seemed to calm down now. Using the gabapentin that helps her. ANTICOAGULATION: Patient is on warfarin for Afib. Length of treatment: lifetime. Bleeding or bruising No. Monitored by our office: Yes. [facility] Up to date on inr checks Yes. States that sleep has been good. HTN: Patient is compliant with meds Yes Monitors bp at home: Yes. Denies side effects: Yes. Chest pain: No. Dyspnea: No. Edema: taking lasix once daily. Uses potassium only when taking the lasix. Controlled. Doesn't wear compression stockings often but does have them. Palpitations: No. Syncope: No. Headache: No. Dizziness: Rarely when standing too fast so she is careful [facility]es [facility]. GERD: Patient takes: omeprazole Heartburn is controlled: Yes. Bloody or black stools: No. Bowel changes: No. Her surgeon had wanted her to follow with gi due to her severe mata's. Both he and I had referred her and she did not go. Reinforced importance of doing so. Had thyroid FNA per Dr Evans. He has since retired. Needs follow up us. Hospital has the order in place. Pulm: Rare use of albuterol inhaler. No longer has to see pulmonary. No coughing or wheezing. MEDICATIONS: Current Outpatient Medications Medication Sig omeprazole (PRILOSEC) 40 mg capsule Take 1 capsule by mouth once daily. gabapentin (NEURONTIN) 100 mg capsule Take 1 capsule by mouth two times a day for 180 days. metoprolol tartrate, short acting, (LOPRESSOR) 50 mg tablet Take 1 tablet by mouth two times a day. albuterol HFA (PROVENTIL HFA, VENTOLIN HFA) 90 mcg/actuation inhaler Inhale 2 Puffs as instructed every 4 hours as needed for wheezing/shortness of breath. amiodarone (PACERONE) 200 mg tablet Take 0.5 tablets by mouth once daily. dilTIAZem CD (CARDIZEM CD, CARTIA XT) 240 mg 24 hr capsule Take 240 mg by mouth once daily. furosemide (LASIX) 40 mg tablet Take 1 tablet by mouth twice daily. potassium chloride 20 mEq TbER Take 1 tablet by mouth twice daily. CALCIUM CARBONATE (CALCIUM 600 ORAL) Take 1 tablet by mouth once daily. MULTIVITAMIN ORAL Take 1 tablet by mouth once daily. warfarin (COUMADIN) 3 mg tablet 2mg Mon Wed and 3mg all other days or as directed warfarin (COUMADIN) 4 mg tablet 2mg Mon and 3mg all other days or as directed warfarin (COUMADIN) 4 mg tablet 2mg Mon and 3mg all other days or as directed warfarin (COUMADIN) 3 mg tablet Take 1 tablet by mouth daily as directed. Back Brace misc 1 Each once daily. Custom made WALKER ROLLATOR SEAT WITH 6 WHEELS - RED Daily use R26.81 Gait instability (primary encounter diagnosis) COMPOUNDED PRESCRIPTION Compression stockings 20-30mmHg 2 pair I83.813 Varicose veins of both lower extremities with pain No current facility-administered medications for this visit. [...] mitral regurgitation 06/18/2021 04/27/21 Echo at [facility]. Pleural effusion, right 05/05/2020 CXR 11/18/19 and [...] home until about 2003. Vaping Use Vaping status: Never Used Substance Use Topics Alcohol use: No Drug use: No Reviewed current medications, allergies, past medical history, surgical history, family history and social history today. REVIEW OF SYSTEMS All other reviewed and negative other than HPI. HEALTH MAINTENANCE: Reviewed health maintenance issues today and recommended the following in detail. RSV Vaccine(1 - 1-dose 75+ series) Never done Advance Directive Discussion due on 06/05/2023 VITALS: BP 108/64 Pulse 91 Wt 55.8 kg (123 lb) SpO2 96% BMI 23.24 kg/m? Last 4 Encounter Wt Readings: Date: Wt: 11/30/2023 56.7 kg (125 lb) 07/25/2023 56.7 kg (125 lb) 07/10/2023 58.1 kg (128 lb) 05/10/2023 56.3 kg (124 lb 3.2 oz) PHYSICAL EXAMINATION: General appearance: Well appearing, alert, in no acute distress, well-hydrated, well nourished. Skin: Skin color, texture, turgor normal, no suspicious rashes or lesions Head: Normocephalic, no masses, lesions, tenderness or abnormalities Eyes: Anicteric sclera. Pupils are equally round and reactive to light. Extraocular movements are intact. Back: Normal exam Lungs: Lungs clear to auscultation. No wheezing, rhonchi, rales Heart: RRR without murmur, gallop, or rubs. No ectopy Abdomen: Normal abdominal exam, Abdomen soft, non-tender. Bowel sounds normal. No masses, organomegaly Extremities: No deformities, edema, skin discoloration, clubbing or cyanosis. Good capillary refill. Musculoskeletal: No joint swelling, deformity, or tenderness ASSESSMENT/PLAN: 1. Hypertension, essential - ICD9: 401.9, ICD10: I10 (primary diagnosis) - Controlled - Continue current medications 2. Paroxysmal atrial fibrillation (HCC) - ICD9: 427.31, ICD10: I48.0 - stable. Follow with cardiology. - WARFARIN 3 MG TABLET 3. 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) - ICD9: 428.0, ICD10: I50.813 - looks stable today. 4. Hyperlipidemia, unspecified hyperlipidemia type - ICD9: 272.4, ICD10: E78.5 - Controlled - Counseled on healthy diet and regular exercise - LIPID PANEL, NONFASTING 5. Chronic obstructive pulmonary disease with acute lower respiratory infection (HCC) - ICD9: 496, 519.8, ICD10: J44.0 - doing well. 6. Stage 3 chronic kidney disease, unspecified whether stage 3a or 3b CKD (HCC) - ICD9: 585.3, ICD10: N18.30 - follow up. - COMPLETE BLOOD COUNT AND DIFFERENTIAL - COMPREHENSIVE METABOLIC PANEL - LIPID PANEL, NONFASTING 7. 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 - ICD9: 530.85, ICD10: K22.70 - remains on meds. Reinforced need to see gi. - CONSULT TO GASTROENTEROLOGY 8. Marfan's syndrome - ICD9: 759.82, ICD10: Q87.40 - stalbe. 9. Rheumatoid arthritis, involving unspecified site, unspecified whether rheumatoid factor present (HCC) - ICD9: 714.0, ICD10: M06.9 - doing well. Does not currently see rheum. 10. History of polymyalgia rheumatica - ICD9: V13.59, ICD10: Z87.39 - in remission. 11. Chronic anticoagulation - ICD9: V58.61, ICD10: Z79.01 - doing well. 12. Prediabetes - ICD9: 790.29, ICD10: R73.03 - HEMOGLOBIN A1C 13. Thyroid nodule - ICD9: 241.0, ICD10: E04.1 - per surgery at [place]. Wes Magallon MD PROGRESS Observed: 05/23/2024 4:25 PM Status: COMPLETED Source: [facility] HNO ID: [id number] Author: MIMI ESCOBAR APRN.TRICIA Service: ? Author Type: Clinical Nurse Specialist Type: Progress Notes Filed: 05/23/2024 16:25 Note Text: Agree with anticoag recommendations PROGRESS Observed: 05/23/2024 2:16 PM Status: COMPLETED Source: [facility] HNO ID: [id number] Author: ABRAHAM POSADAS RN Service: ? Author Type: Registered Nurse Type: Progress Notes Filed: 05/23/2024 16:25 Note Text: patient had inr completed at [facility] patients inr is 2.2 (patients inr range is 2.0-3.0) patient is currently taking 2mg Mon,Wed and 3mg all other days patients last dose change was on 03/05/24 due to a high level of 3.4 (dose at that time was 2mg Mon and 3mg all other days patient has had no changes in medication and no missed doses and no change in diet Advised patient to continue on the same dose(s) and that they would only be contacted regarding dosage and follow up instructions after review with provider, if a change is needed. Written instructions given and patient verbalized understanding. Presently scheduled in 4 weeks (06/20/24) for follow up INR. PROGRESS Observed: 05/15/2024 10:50 AM Status: COMPLETED Source: [facility] HNO ID: [id number] Author: JOLENE EMERY RN Service: ? Author Type: Registered Nurse Type: Progress Notes Filed: 05/15/2024 10:58 Note Text: [facility] Telephonic Outreach Provider Action/FYI Contacted for: Routine [...] more often than normal? 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 Routed to: No Action Needed FAVIOLA Education Provided this Outreach: No Jolene Emery RN May 15, 2024 10:57 AM CNPTOUTREACH Observed: 05/15/2024 12:00 AM Status: COMPLETED Source: [facility] Patient Outreach ([facility]) NIMISHA CEJA ([id number]) 1945 F Date Time Provider Department 05/15/24 [place]ENE EMERY [facility] visit today, we recorded the following information about you: Jolene Emery RN 05/15/2024 10:58 AM Signed CDM Telephonic Outreach Provider Action/FYI [...] more often than normal? 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 Routed to: No Action Needed FAVIOLA Education Provided this Outreach: No Jolene Emery RN May 15, 2024 10:57 AM Allergies As of Date: 05/15/2024 Noted Allergy Reaction CRESTOR (ROSUVASTATIN CALCIUM) 01/19/2011 14 - Other: See Comments Comments: Myalgia. IBUPROFEN 12/04/2008 14 - Other: See Comments Comments: dizzy PREVNAR 13 (PNEUMOC 13-CHU CONJ-D*07/27/2015 2 - Rash Comments: Presumed reaction to Prevnar. LATEX 12/08/2008 2 - Rash Comments: Local contact rash. Date Reviewed: 03/28/2024 Reviewed by: Mimi Escobar APRN.STITCH SEPARATOR - Fully Assessed Reason for Visit: CDM [Other] Cmt: Routine outreach Prescriptions as of 10/16/2024 - warfarin (COUMADIN) 2 mg tablet take 2mg Mon, Wed and 3mg all other days or as directed pending lab results - metoprolol tartrate, short acting, (LOPRESSOR) 50 mg tablet Take 1 tablet by mouth two times a day. - atorvastatin (LIPITOR) 20 mg tablet Take 1 tablet by mouth once daily. - warfarin (COUMADIN) 3 mg tablet Take 1 tablet by mouth daily as directed. - warfarin (COUMADIN) 3 mg tablet 2mg Mon Wed and 3mg all other days or as directed - warfarin (COUMADIN) 4 mg tablet 2mg Mon and 3mg all other days or as directed - warfarin (COUMADIN) 4 mg tablet 2mg Mon and 3mg all other days or as directed - omeprazole (PRILOSEC) 40 mg capsule Take 1 capsule by mouth once daily. - gabapentin (NEURONTIN) 100 mg capsule Take 1 capsule by mouth two times a day for 180 days. - albuterol HFA (PROVENTIL HFA, VENTOLIN HFA) 90 mcg/actuation inhaler Inhale 2 Puffs as instructed every 4 hours as needed for wheezing/shortness of breath. - warfarin (COUMADIN) 3 mg tablet Take 1 tablet by mouth daily as directed. - Back Brace misc 1 Each once daily. Custom made - amiodarone (PACERONE) 200 mg tablet Take [...] 1 tablet by mouth twice daily. - COMPOUNDED PRESCRIPTION Compression stockings 20-30mmHg [...] Epic data Problem List As Of Date 05/15/2024 Noted Resolved Dysphagia, unspecified(787.20) [R13.10] 05/08/2018 MARFAN'S [...] 09/23/2020 Pleural effusion, right [J90] 05/05/2020 11/08/2022 Thyroid nodule [E04.1] 05/11/2020 Prediabetes [R73.03] 09/25/2020 Pulmonary hypertension (HCC) [I27.20] 05/11/2021 Moderate mitral regurgitation [I34.0] 06/18/2021 Encounter for support and coordination of trans*07/20/2021 07/26/2022 Pleural effusion [J90] 01/31/2022 04/19/2022 Renal infarct (HCC) [N28.0] 04/19/2022 07/26/2022 Abnormal levels of other serum enzymes [R74.8] 11/11/2021 11/08/2022 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) [I50*09/03/2021 Acute respiratory failure (HCC) [J96.00] 07/22/2021 11/08/2022 Chronic obstructive pulmonary disease (HCC) [J4*04/28/2021 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] 07/22/2021 11/08/2022 Cyst of kidney, acquired [N28.1] 07/22/2021 11/08/2022 Dehydration [E86.0] 02/03/2022 11/08/2022 Deviation of international normalized ratio (IN*09/19/2022 11/08/2022 Elevated liver enzymes [R74.8] 11/11/2021 11/08/2022 Gram-negative bacteremia [R78.81] 02/03/2022 11/08/2022 History of hysterectomy [Z90.710] 09/19/2022 History of surgical procedure [Z98.890] 09/19/2022 11/08/2022 Hypokalemia [E87.6] 07/09/2021 11/08/2022 Hyponatremia [E87.1] 07/09/2021 11/08/2022 Hypophosphatemia [E83.39] 02/03/2022 11/08/2022 Hypoxemia [R09.02] 06/23/2021 11/08/2022 Hypoxia [R09.02] 06/23/2021 11/08/2022 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] 07/22/2021 11/08/2022 Leukocytosis [D72.829] 07/22/2021 11/08/2022 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 11/08/2022 Pneumonia [J18.9] 02/03/2022 11/08/2022 Pyothorax without fistula (HCC) [J86.9] 02/03/2022 11/08/2022 Rheumatoid arthritis, unspecified (HCC) [M06.9] 04/28/2021 Shortness of breath [R06.02] 09/16/2021 11/08/2022 Calculus of gallbladder without cholecystitis w*11/08/2022 History of empyema of pleura [Z87.09] 11/08/2022 History of compression fracture of spine [Z87.8*11/08/2022 Stage 3 chronic kidney disease (HCC) [N18.30] 11/08/2022 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 [K22.70] 02/15/2023 Abdominal bloating [R14.0] 01/10/2023 Diagnosed: 05/10/2023 Iron deficiency anemia [D50.9] 01/10/2023 Diagnosed: 05/10/2023 Encounter Status:Closed by JOLENE EMERY on 05/15/24 PROGRESS Observed: 04/25/2024 3:10 PM Status: COMPLETED Source: [facility] HNO ID: [id number] Author: MIMI ESCOBAR APRN.CNP Service: ? Author Type: Clinical Nurse Specialist Type: Progress Notes Filed: 04/25/2024 15:10 Note Text: Agree with anticoag recommendation PROGRESS Observed: 04/25/2024 2:14 PM Status: COMPLETED Source: [facility] HNO ID: [id number] Author: ABRAHAM POSADAS, RN Service: ? Author Type: Registered Nurse Type: Progress Notes Filed: 04/25/2024 15:10 Note Text: patient had inr completed at [facility] patients inr is 2.4 (patients inr range is 2.0-3.0) patient is currently taking 2mg Mon,Wed and 3mg all other days patients last dose change was on 03/05/24 due to a high level of 3.4 (dose at that time was 2mg Mon and 3mg all other days) patient has had no changes in medication and no missed doses and no change in diet Advised patient to continue on the same dose(s) and that they would only be contacted regarding dosage and follow up instructions after review with provider, if a change is needed. Written instructions given and patient verbalized understanding. Presently scheduled in 4 weeks (05/23/24) for follow up INR. CNPN Observed: 04/25/2024 12:00 AM Status: COMPLETED Source: [facility] Telephone (LUANA) NIMISHA CEJA ([id number]) 1945 F Date Time Provider Department 04/25/24 WES MAGALLON During your visit today, we recorded the following information about you: Abraham Posadas, PEYTON 04/25/2024 2:17 PM Signed patients orders for coumadin clinic inr's has at this time. new order has been pended for approval if possible so that patient can continue to get inr's completed thru the coumadin clinic. coumadin clinic nurse only needs called if order can not be approved. Allergies As of Date: 04/25/2024 Noted Allergy Reaction CRESTOR (ROSUVASTATIN CALCIUM) 01/19/2011 14 - Other: See Comments Comments: Myalgia. IBUPROFEN 12/04/2008 14 - Other: See Comments Comments: dizzy PREVNAR 13 (PNEUMOC 13-CHU CONJ-D*07/27/2015 2 - Rash Comments: Presumed reaction to Prevnar. LATEX 12/08/2008 2 - Rash Comments: Local contact rash. Date Reviewed: 03/28/2024 Reviewed by: Suppan, Mimi A, URBAN GARDENING SPECIALIST.STITCH SEPARATOR - Fully Assessed Reason for Visit: Orders [681] Cmt: poc protime Primary Visit Diagnosis:Atrial fibrillation, chronic (HCC) [I48.20] Order(s):INR (POC) [1679788] Order #: [id number] STANDING PROTHROMBIN TIME [SQPT] Order #: [id number] STANDING Prescriptions as of 04/25/2024 - warfarin (COUMADIN) 3 mg tablet 2mg Mon Wed and 3mg all other days or as directed - warfarin (COUMADIN) 4 mg tablet 2mg Mon and 3mg all other days or as directed - warfarin (COUMADIN) 4 mg tablet 2mg Mon and 3mg all other days or as directed - omeprazole (PRILOSEC) 40 mg capsule Take 1 capsule by mouth once daily. - gabapentin (NEURONTIN) 100 mg capsule Take 1 capsule by mouth two times a day for 180 days. - metoprolol tartrate, short acting, (LOPRESSOR) 50 mg tablet Take 1 tablet by mouth two times a day. - albuterol HFA (PROVENTIL HFA, VENTOLIN HFA) 90 mcg/actuation inhaler Inhale 2 Puffs as instructed every 4 hours as needed for wheezing/shortness of breath. - warfarin (COUMADIN) 3 mg tablet Take 1 tablet by mouth daily as directed. - Back Brace misc 1 Each once daily. Custom made - amiodarone (PACERONE) 200 mg tablet Take [...] 1 tablet by mouth twice daily. - COMPOUNDED PRESCRIPTION Compression stockings 20-30mmHg [...] Epic data Problem List As Of Date 04/25/2024 Noted Resolved Dysphagia, unspecified(787.20) [R13.10] 05/08/2018 MARFAN'S [...] 09/23/2020 Pleural effusion, right [J90] 05/05/2020 11/08/2022 Thyroid nodule [E04.1] 05/11/2020 Prediabetes [R73.03] 09/25/2020 Pulmonary hypertension (HCC) [I27.20] 05/11/2021 Moderate mitral regurgitation [I34.0] 06/18/2021 Encounter for support and coordination of trans*07/20/2021 07/26/2022 Pleural effusion [J90] 01/31/2022 04/19/2022 Renal infarct (HCC) [N28.0] 04/19/2022 07/26/2022 Abnormal levels of other serum enzymes [R74.8] 11/11/2021 11/08/2022 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) [I50*09/03/2021 Acute respiratory failure (HCC) [J96.00] 07/22/2021 11/08/2022 Chronic obstructive pulmonary disease (HCC) [J4*04/28/2021 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] 07/22/2021 11/08/2022 Cyst of kidney, acquired [N28.1] 07/22/2021 11/08/2022 Dehydration [E86.0] 02/03/2022 11/08/2022 Deviation of international normalized ratio (IN*09/19/2022 11/08/2022 Elevated liver enzymes [R74.8] 11/11/2021 11/08/2022 Gram-negative bacteremia [R78.81] 02/03/2022 11/08/2022 History of hysterectomy [Z90.710] 09/19/2022 History of surgical procedure [Z98.890] 09/19/2022 11/08/2022 Hypokalemia [E87.6] 07/09/2021 11/08/2022 Hyponatremia [E87.1] 07/09/2021 11/08/2022 Hypophosphatemia [E83.39] 02/03/2022 11/08/2022 Hypoxemia [R09.02] 06/23/2021 11/08/2022 Hypoxia [R09.02] 06/23/2021 11/08/2022 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] 07/22/2021 11/08/2022 Leukocytosis [D72.829] 07/22/2021 11/08/2022 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 11/08/2022 Pneumonia [J18.9] 02/03/2022 11/08/2022 Pyothorax without fistula (HCC) [J86.9] 02/03/2022 11/08/2022 Rheumatoid arthritis, unspecified (HCC) [M06.9] 04/28/2021 Shortness of breath [R06.02] 09/16/2021 11/08/2022 Calculus of gallbladder without cholecystitis w*11/08/2022 History of empyema of pleura [Z87.09] 11/08/2022 History of compression fracture of spine [Z87.8*11/08/2022 Stage 3 chronic kidney disease (HCC) [N18.30] 11/08/2022 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 [K22.70] 02/15/2023 Abdominal bloating [R14.0] 01/10/2023 Diagnosed: 05/10/2023 Iron deficiency anemia [D50.9] 01/10/2023 Diagnosed: 05/10/2023 Encounter Status:Closed by WES MAGALLNO on 04/25/24 PROGRESS Observed: 04/24/2024 5:58 PM Status: COMPLETED Source: [facility] HNO ID: [id number] Author: JOLENE EMERY RN Service: ? Author Type: Registered Nurse Type: Progress Notes Filed: 04/24/2024 17:59 Note Text: [facility] Telephonic Outreach Provider Action/FYI Contacted for: Routine Telephonic Outreach Contact made with patient: No, unable to leave message. Jolene Emery RN April 24, 2024 5:59 PM CNPTOUTRLARISA Observed: 04/24/2024 12:00 AM Status: COMPLETED Source: [facility] Patient Outreach ([facility]) NIMISHA CEJA ([id number]) 1945 F Date Time Provider Department 04/24/24 JOLENE EMERY During your visit today, we recorded the following information about you: Jolene Emery RN 04/24/2024 5:59 PM Signed [facility] Telephonic Outreach Provider Action/FYI Contacted for: Routine Telephonic Outreach Contact made with patient: No, unable to leave message. Jolene Emery RN April 24, 2024 5:59 PM Allergies As of Date: 04/24/2024 Noted Allergy Reaction CRESTOR (ROSUVASTATIN CALCIUM) 01/19/2011 14 - Other: See Comments Comments: Myalgia. IBUPROFEN 12/04/2008 14 - Other: See Comments Comments: dizzy PREVNAR 13 (PNEUMOC 13-CHU CONJ-D*07/27/2015 2 - Rash Comments: Presumed reaction to Prevnar. LATEX 12/08/2008 2 - Rash Comments: Local contact rash. Date Reviewed: 03/28/2024 Reviewed by: Mimi Escobar APRN.STITCH SEPARATOR - Fully Assessed Reason for Visit: CDM [Other] Cmt: Routine outreach Prescriptions as of 04/24/2024 - warfarin (COUMADIN) 3 mg tablet 2mg Mon Wed and 3mg all other days or as directed - warfarin (COUMADIN) 4 mg tablet 2mg Mon and 3mg all other days or as directed - warfarin (COUMADIN) 4 mg tablet 2mg Mon and 3mg all other days or as directed - omeprazole (PRILOSEC) 40 mg capsule Take 1 capsule by mouth once daily. - gabapentin (NEURONTIN) 100 mg capsule Take 1 capsule by mouth two times a day for 180 days. - metoprolol tartrate, short acting, (LOPRESSOR) 50 mg tablet Take 1 tablet by mouth two times a day. - albuterol HFA (PROVENTIL HFA, VENTOLIN HFA) 90 mcg/actuation inhaler Inhale 2 Puffs as instructed every 4 hours as needed for wheezing/shortness of breath. - warfarin (COUMADIN) 3 mg tablet Take 1 tablet by mouth daily as directed. - Back Brace misc 1 Each once daily. Custom made - amiodarone (PACERONE) 200 mg tablet Take [...] 1 tablet by mouth twice daily. - COMPOUNDED PRESCRIPTION Compression stockings 20-30mmHg [...] Epic data Problem List As Of Date 04/24/2024 Noted Resolved Dysphagia, unspecified(787.20) [R13.10] 05/08/2018 MARFAN'S [...] 09/23/2020 Pleural effusion, right [J90] 05/05/2020 11/08/2022 Thyroid nodule [E04.1] 05/11/2020 Prediabetes [R73.03] 09/25/2020 Pulmonary hypertension (HCC) [I27.20] 05/11/2021 Moderate mitral regurgitation [I34.0] 06/18/2021 Encounter for support and coordination of trans*07/20/2021 07/26/2022 Pleural effusion [J90] 01/31/2022 04/19/2022 Renal infarct (HCC) [N28.0] 04/19/2022 07/26/2022 Abnormal levels of other serum enzymes [R74.8] 11/11/2021 11/08/2022 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) [I50*09/03/2021 Acute respiratory failure (HCC) [J96.00] 07/22/2021 11/08/2022 Chronic obstructive pulmonary disease (HCC) [J4*04/28/2021 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] 07/22/2021 11/08/2022 Cyst of kidney, acquired [N28.1] 07/22/2021 11/08/2022 Dehydration [E86.0] 02/03/2022 11/08/2022 Deviation of international normalized ratio (IN*09/19/2022 11/08/2022 Elevated liver enzymes [R74.8] 11/11/2021 11/08/2022 Gram-negative bacteremia [R78.81] 02/03/2022 11/08/2022 History of hysterectomy [Z90.710] 09/19/2022 History of surgical procedure [Z98.890] 09/19/2022 11/08/2022 Hypokalemia [E87.6] 07/09/2021 11/08/2022 Hyponatremia [E87.1] 07/09/2021 11/08/2022 Hypophosphatemia [E83.39] 02/03/2022 11/08/2022 Hypoxemia [R09.02] 06/23/2021 11/08/2022 Hypoxia [R09.02] 06/23/2021 11/08/2022 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] 07/22/2021 11/08/2022 Leukocytosis [D72.829] 07/22/2021 11/08/2022 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 11/08/2022 Pneumonia [J18.9] 02/03/2022 11/08/2022 Pyothorax without fistula (HCC) [J86.9] 02/03/2022 11/08/2022 Rheumatoid arthritis, unspecified (HCC) [M06.9] 04/28/2021 Shortness of breath [R06.02] 09/16/2021 11/08/2022 Calculus of gallbladder without cholecystitis w*11/08/2022 History of empyema of pleura [Z87.09] 11/08/2022 History of compression fracture of spine [Z87.8*11/08/2022 Stage 3 chronic kidney disease (HCC) [N18.30] 11/08/2022 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 [K22.70] 02/15/2023 Abdominal bloating [R14.0] 01/10/2023 Diagnosed: 05/10/2023 Iron deficiency anemia [D50.9] 01/10/2023 Diagnosed: 05/10/2023 Encounter Status:Closed by JOLENE EMERY on 04/24/24 PROGRESS Observed: 03/29/2024 11:22 AM Status: COMPLETED Source: [facility] HNO ID: [id number] Author: JOLENE EMERY, RN Service: ? Author Type: Registered Nurse Type: Progress Notes Filed: 03/29/2024 11:25 Note Text: [facility] Telephonic Outreach Provider Action/FYI Patient will have a CT chest at [facility] on 04/04 Contacted for: Routine Telephonic Outreach Contact made [...] more often than normal? 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 Routed to: No Action Needed FAVIOLA Education Provided this Outreach: No Jolene Emery RN March 29, 2024 11:23 AM PROGRESS Observed: 03/28/2024 2:34 PM Status: COMPLETED Source: [facility] HNO ID: [id number] Author: MIMI ESCOBAR APRN.TRICIA Service: ? Author Type: Clinical Nurse Specialist Type: Progress Notes Filed: 03/28/2024 14:35 Note Text: Agree with anticoagulation recommendation PROGRESS Observed: 03/28/2024 2:25 PM Status: COMPLETED Source: [facility] HNO ID: [id number] Author: ABRAHAM POSADAS RN Service: ? Author Type: Registered Nurse Type: Progress Notes Filed: 03/28/2024 14:35 Note Text: patient had inr completed at [facility] patients inr is 2.4 (patients inr range is 2.0-3.0) patient is currently taking 2mg Mon,Wed and 3mg all other days patients last dose change was on 03/05/24 due to a high level of 3.4 (dose at that time was 2mg Mon and 3mg all other days) patient has had no changes in medication and no missed doses and no change in diet Advised patient to continue on the same dose(s) and that they would only be contacted regarding dosage and follow up instructions after review with provider, if a change is needed. Written instructions given and patient verbalized understanding. Presently scheduled in 4 weeks (04/25/24) for follow up INR. PROGRESS Observed: 03/27/2024 6:44 PM Status: COMPLETED Source: [facility] HNO ID: [id number] Author: JOLENE EMERY RN Service: ? Author Type: Registered Nurse Type: Progress Notes Filed: 03/27/2024 18:47 Note Text: CDM Telephonic Outreach Provider Action/FYI Contacted for: Routine Telephonic Outreach Contact made with patient: Yes Patient would like a call back at another time, she is making dinner. Jolene Emery RN March 27, 2024 6:46 PM CNPTOUTREACH Observed: 03/27/2024 12:00 AM Status: COMPLETED Source: [facility] Patient Outreach ([facility]) NIMISHA CEJA ([id number]) 1945 F Date Time Provider Department 03/27/24 JOLENE EMERYNiki During your visit today, we recorded the following information about you: Jolene Emery RN 03/27/2024 6:47 PM Signed [facility] Telephonic Outreach Provider Too/CAROLYN Contacted for: Routine Telephonic Outreach Contact made with patient: Yes Patient would like a call back at another time, she is making dinner. Jolene Emery RN March 27, 2024 6:46 PM Jolene Emery RN 03/29/2024 11:25 AM Signed [facility] Telephonic Outreach Provider Too/CAROLYN Patient will have a CT chest at [facility] on 04/04 Contacted for: Routine Telephonic Outreach Contact made [...] more often than normal? 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 Routed to: No Action Needed FAVIOLA Education Provided this Outreach: No Jolene Emery RN March 29, 2024 11:23 AM Allergies As of Date: 03/27/2024 Noted Allergy Reaction CRESTOR (ROSUVASTATIN CALCIUM) 01/19/2011 14 - Other: See Comments Comments: Myalgia. IBUPROFEN 12/04/2008 14 - Other: See Comments Comments: dizzy PREVNAR 13 (PNEUMOC 13-CHU CONJ-D*07/27/2015 2 - Rash Comments: Presumed reaction to Prevnar. LATEX 12/08/2008 2 - Rash Comments: Local contact rash. Date Reviewed: 03/12/2024 Reviewed by: Mimi Escobar APRN.STITCH SEPARATOR - Fully Assessed Reason for Visit: CDM [Other] Cmt: Routine outreach Prescriptions as of 03/29/2024 - warfarin (COUMADIN) 3 mg tablet 2mg Mon Wed and 3mg all other days or as directed - warfarin (COUMADIN) 4 mg tablet 2mg Mon and 3mg all other days or as directed - warfarin (COUMADIN) 4 mg tablet 2mg Mon and 3mg all other days or as directed - omeprazole (PRILOSEC) 40 mg capsule Take 1 capsule by mouth once daily. - gabapentin (NEURONTIN) 100 mg capsule Take 1 capsule by mouth two times a day for 180 days. - metoprolol tartrate, short acting, (LOPRESSOR) 50 mg tablet Take 1 tablet by mouth two times a day. - albuterol HFA (PROVENTIL HFA, VENTOLIN HFA) 90 mcg/actuation inhaler Inhale 2 Puffs as instructed every 4 hours as needed for wheezing/shortness of breath. - warfarin (COUMADIN) 3 mg tablet Take 1 tablet by mouth daily as directed. - Back Brace misc 1 Each once daily. Custom made - amiodarone (PACERONE) 200 mg tablet Take [...] 1 tablet by mouth twice daily. - COMPOUNDED PRESCRIPTION Compression stockings 20-30mmHg [...] Epic data Problem List As Of Date 03/27/2024 Noted Resolved Dysphagia, unspecified(787.20) [R13.10] 05/08/2018 MARFAN'S [...] 09/23/2020 Pleural effusion, right [J90] 05/05/2020 11/08/2022 Thyroid nodule [E04.1] 05/11/2020 Prediabetes [R73.03] 09/25/2020 Pulmonary hypertension (HCC) [I27.20] 05/11/2021 Moderate mitral regurgitation [I34.0] 06/18/2021 Encounter for support and coordination of trans*07/20/2021 07/26/2022 Pleural effusion [J90] 01/31/2022 04/19/2022 Renal infarct (HCC) [N28.0] 04/19/2022 07/26/2022 Abnormal levels of other serum enzymes [R74.8] 11/11/2021 11/08/2022 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) [I50*09/03/2021 Acute respiratory failure (HCC) [J96.00] 07/22/2021 11/08/2022 Chronic obstructive pulmonary disease (HCC) [J4*04/28/2021 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] 07/22/2021 11/08/2022 Cyst of kidney, acquired [N28.1] 07/22/2021 11/08/2022 Dehydration [E86.0] 02/03/2022 11/08/2022 Deviation of international normalized ratio (IN*09/19/2022 11/08/2022 Elevated liver enzymes [R74.8] 11/11/2021 11/08/2022 Gram-negative bacteremia [R78.81] 02/03/2022 11/08/2022 History of hysterectomy [Z90.710] 09/19/2022 History of surgical procedure [Z98.890] 09/19/2022 11/08/2022 Hypokalemia [E87.6] 07/09/2021 11/08/2022 Hyponatremia [E87.1] 07/09/2021 11/08/2022 Hypophosphatemia [E83.39] 02/03/2022 11/08/2022 Hypoxemia [R09.02] 06/23/2021 11/08/2022 Hypoxia [R09.02] 06/23/2021 11/08/2022 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] 07/22/2021 11/08/2022 Leukocytosis [D72.829] 07/22/2021 11/08/2022 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 11/08/2022 Pneumonia [J18.9] 02/03/2022 11/08/2022 Pyothorax without fistula (HCC) [J86.9] 02/03/2022 11/08/2022 Rheumatoid arthritis, unspecified (HCC) [M06.9] 04/28/2021 Shortness of breath [R06.02] 09/16/2021 11/08/2022 Calculus of gallbladder without cholecystitis w*11/08/2022 History of empyema of pleura [Z87.09] 11/08/2022 History of compression fracture of spine [Z87.8*11/08/2022 Stage 3 chronic kidney disease (HCC) [N18.30] 11/08/2022 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 [K22.70] 02/15/2023 Abdominal bloating [R14.0] 01/10/2023 Diagnosed: 05/10/2023 Iron deficiency anemia [D50.9] 01/10/2023 Diagnosed: 05/10/2023 Encounter Status:Closed by JOLENE EMERY on 03/27/24 PROGRESS Observed: 03/12/2024 2:37 PM Status: COMPLETED Source: [facility] HNO ID: [id number] Author: MIMI ESCOBAR APRN.CNP Service: ? Author Type: Clinical Nurse Specialist Type: Progress Notes Filed: 03/12/2024 14:38 Note Text: Agree with anticoag recommendations PROGRESS Observed: 03/12/2024 2:25 PM Status: COMPLETED Source: [facility] HNO ID: [id number] Author: ABRAHAM POSADAS, PEYTON Service: ? Author Type: Registered Nurse Type: Progress Notes Filed: 03/12/2024 14:38 Note Text: patient had inr completed at [facility] patients inr is 2.5 (patients inr range is 2.0-3.0) patient is currently taking 2mg Mon,Wed and 3mg all other days patients last dose change was on 03/05/24 due to a high level of 3.4 (dose at that time was 2mg Mon and 3mg all other days) patient has had no [...] verbalized understanding. Presently scheduled in 2 weeks (03/26/24) for follow up INR since this is the first normal reading since dose change ALLERGIES DATE TYPE / CODE NAME / CODE REACTION SEVERITY SOURCE 12/13/2024 DRUG INGREDI/54743 1003(SNOMED CT) ATORVASTATIN OTHER: SEE C [facility] 07/27/2015 DRUG/09419384 3(SNOMED CT) PNEUMOC 13-CHU CONJ-DIP CR(PF) RASH [facility] 01/19/2011 DRUG INGREDI/93416 1003(SNOMED CT) ROSUVASTATIN CALCIUM OTHER: [facility] 12/08/2008 DRUG INGREDI/13448 1003(SNOMED CT) LATEX RASH Low [facility] 12/04/2008 DRUG INGREDI/84335 1003(SNOMED CT) IBUPROFEN OTHER: SEE [facility] ENCOUNTERS ADMIT/DISCHARGE ACCOUNT NUMBER ADMITTING ENCOUNTER CLASS LOC ATION SOURCE 02/21/2025/ 5 [id number] [facility] 02/05/2025/ 5 [id number] [facility] [place] 01/16/2025/ 5 [id number] [facility] 01/07/2025/ 5 [id number] Ambulatory [facility] HospitalBuild ing:[facility] 12/13/2024/ 5 [id number] Ambulatory [facility] HospitalBuild ing:[facility] 11/28/2024/ 5 [id number] Ambulatory [facility] HospitalBuild ing:[facility] 10/31/2024/ 5 [id number] [facility] ing:[facility] 10/03/2024/ 5 [id number] [facility] 09/02/2024/ 5 [id number] Ambulatory [facility] HospitalBuild ing:[facility] 07/29/2024/ 5 [id number] Ambulatory [facility] ing:[facility] 07/12/2024/ 5 [id number] Ambulatory [facility] HospitalBuild ing:[facility] 06/28/2024/ 5 [id number] Ambulatory [facility] HospitalBuild ing:[facility] 05/31/2024/ 4 [id number] Ambulatory [facility] HospitalBuild ing:[facility] 05/31/2024/ 4 [id number] [facility]/ 4 [id number] Ambulatory [facility] HospitalBuild ing:[facility] 04/25/2024/ 4 [id number] Ambulatory [facility] HospitalBuild ing:[facility] 03/28/2024/ 4 [id number] Ambulatory [facility] HospitalBuild ing:[facility] 03/12/2024/ 4 [id number] [facility]ulatory [facility] ENCOUNTER GUARANTOR PAYER SUBSCRIBER SOURCE 02/21/2025 Primary Insuran e:[facility] DUAL COMPLETE PPO SNPPolicy Number: [id number] Date:8954-72-24Jdxz Name:Fara NIMISHA Owens CARISSAOB: [id number] [address] [place], [place] [address] [place] [address] 02/21/2025 Secondary Insurance:[employer] [facility] MEDICAIDPolicy Number: [id number] Date:2915-13-65Vjsa Name:Erinn BARCLAYHA Graciela FERREROB: [id number] [address] [place], [place] [address] [place] [address] 02/05/2025 Primary Insuranc e:[facility] DUAL COMPLETE PPO SNPPolicy Number: [id number] Date:7131-95-19Uooy Name:Fara BANKSHDOB: [id number] [address] [place] [address] [facility] 02/05/2025 Secondary Insurance:[facility] MEDICAIDPolicy Number: [id number] Date:8305-11-06Ptbu Name:Erinn BANKSHDOB: 0466-80-09JVF220 [address] [place], [place] [address] [place] [address] 01/16/2025 Primary Insuranc e:[facility] DUAL COMPLETE PPO SNPPolicy Number: [id number] Date:6680-83-99Pwwa Name:Fara BANKSHDOB: [id number] [address] [place], [place] [address] [place] [address] 01/16/2025 Secondary Insurance:[facility] MEDICAIDPolicy Number: [id number] Date:6866-14-71Gkmb Name:Erinn BANKSHDOB: 4422-11-18GWQ162 [address] [place], [place] [address] [place] [address] 01/07/2025 Primary Insuranc e:[facility] DUAL COMPLETE PPO SNPPolicy Number: [id number] Date:6612-79-18Lqdz Name:Fara Owens TISHDOB: [id number] [address] [place], [place] [address] [place] [address] 01/07/2025 Secondary Insurance:[facility] MEDICAIDPolicy Number: [id number] Date:1765-77-62Jazi Name:Erinn BANKSHDOB: 6130-65-43XIH847 [address] [place], [place] [address] [place] [address] 12/13/2024 Primary Insuranc e:[facility] DUAL COMPLETE PPO SNPPolicy Number: [id number] Date:3892-51-09Jkoy Name:Fara Owens TISHDOB: 4580-30-63VOL299 [address] [place], [place] [address] [place] [address] 12/13/2024 Secondary Insurance:[facility] MEDICAIDPolicy Number: [id number] Date:9233-17-71Hxre Name:Erinn Owens TISHDOB: [id number] [address] [place], [place] [address] [place] [address] 11/28/2024 Primary Insuranc e:[facility] DUAL COMPLETE PPO SNPPolicy Number: [id number] Date:1576-14-78Uzmg Name:Fara Owens TISHDOB: [id number] [address] [place], [place] [address] [place] [address] 11/28/2024 Secondary Insurance:[facility] MEDICAIDPolicy Number: [id number] Date:8151-15-56Pane Name:Erinn Owens TISHDOB: 3801-63-95WPU339 [address] [place], [place] [address] [place] [address] 10/31/2024 Primary Insuranc e:[facility] DUAL COMPLETE PPO SNPPolicy Number: [id number] Date:2396-35-79Dflb Name:Fara Owens TISHDOB: 3112-15-77GVS053 [address] [place], [place] [address] [place] [address] 10/31/2024 Secondary Insurance:[facility] MEDICAIDPolicy Number: [id number] Date:3251-51-35Aoll Name:Erinn Owens TISHDOB: [id number] [address] [place], [place] [address] [place] [address] 10/03/2024 Primary Insuranc e:[facility] DUAL COMPLETE PPO SNPPolicy Number: [id number] Date:3232-49-94Gocx Name:Fara Owens TISHDOB: [id number] [address] [place], [place] [address] [place] [address] 10/03/2024 Secondary Insurance:[facility] MEDICAIDPolicy Number: [id number] Date:2566-80-11Rlgf Name:Erinn Owens TISHDOB: 5508-20-65QPA122 [address] [place], [place] [address] [place] [address] 09/02/2024 Primary Insuranc e:[facility] MEDICAIDPolicy Number: [id number] Date:4918-09-05Ppeo Name:Erinn Owens TISHDOB: [id number] [address] [place], [place] [address] [place] [address] 07/29/2024 Primary Insuranc e:[facility] MEDICAREPolicy Number: [id number] Date:9470-88-31Adhl Name:Fara Owens TISHDOB: [id number] [address] [place], [place] [address] [place] [address] 07/29/2024 Secondary Insurance:[facility] MEDICAIDPolicy Number: [id number] Date:6757-67-71Wzqr Name:Erinn Owens TISHDOB: 8607-74-56OZQ004 [address] [place], [place] [address] [place] [address] 07/12/2024 Primary Insuranc e:[facility] MEDICAREPolicy Number: [id number] Date:6794-38-15Gfbv Name:Fara Owens TISHDOB: 7207-00-79TDS487 [address] [place], [place] [address] [place] [address] 07/12/2024 Secondary Insurance:[facility] MEDICAIDPolicy Number: [id number] Date:2386-00-46Advg Name:Erinn Owens TISHDOB: 6029-39-33DBI064 [address] [place], [place] [address] [place] [address] 06/28/2024 Primary Insuranc e:[facility] MEDICAREPolicy Number: [id number] Date:9541-05-05Adnu Name:Fara Owens TISHDOB: 7755-38-23SHV249 [address] [place] [address] [facility] 06/28/2024 Secondary Insurance:[facility] MEDICAIDPolicy Number: [id number] Date:1261-57-84Jthp Name:Erinn Owens TISHDOB: [id number] [address] [place] [address] [facility] 05/31/2024 Primary Insuranc e:[facility] MEDICAREPolicy Number: [id number] Date:8771-49-14Lnii Name:Fara Owens TISHDOB: [id number] [address] [place], [place] [address] [place] [address] 05/31/2024 Secondary Insurance:[facility] MEDICAIDPolicy Number: [id number] Date:6689-76-16Xycn Name:Erinn Owens TISHDOB: [id number] [address] [place], [place] [address] [place] [address] 05/31/2024 Primary Insuranc e:[facility] MEDICAREPolicy Number: [id number] Date:8977-77-97Yckf Name:Fara Owens TISHDOB: 1827-61-88LSH957 [address] [place] [address] [facility] 05/31/2024 Secondary Insurance:[facility] MEDICAIDPolicy Number: [id number] Date:1348-05-31Xncn Name:Erinn Owens TISHDOB: 1020-26-89QHH147 [address] [place], [place] [address] [place] [address] 05/23/2024 Primary Insuranc e:[facility] MEDICAREPolicy Number: [id number] Date:5910-49-44Ymyo Name:Fara Owens TISHDOB: [id number] [address] [place], [place] [address] [place] [address] 05/23/2024 Secondary Insurance:[facility] MEDICAIDPolicy Number: [id number] Date:3847-96-22Aspb Name:Erinn BANKSHDOB: 8126-44-26TTL328 [address] [place], [place] [address] [place] [address] 04/25/2024 Primary Insuranc e:[facility] MEDICAREPolicy Number: [id number] Date:8853-38-25Nifq Name:Fara BANKSHDOB: [id number] [address] [place], [place] [address] [place] [address] 04/25/2024 Secondary Insurance:[facility] MEDICAIDPolicy Number: [id number] Date:9733-94-91Yxel Name:Erinn BANKSHDOB: 4240-82-08UWF619 [address] [place], [place] [address] [place] [address] 03/28/2024 Primary Insuranc e:[facility] MEDICAREPolicy Number: [id number] Date:9225-07-24Wjeh Name:Fara BANKSHDOB: 9499-27-01ZCS887 [address] [place], [place] [address] [place] [address] 03/28/2024 Secondary Insurance:[facility] MEDICAIDPolicy Number: [id number] Date:3140-29-68Kbai Name:Erinn Owens TISHDOB: 2170-52-03HAZ658 [address] [place], [place] [address] [place] [address] 03/12/2024 Primary Insuranc e:[facility] MEDICAREPolicy Number: [id number] Date:4661-67-01Jiwv Name:Fara Owens TISHDOB: 1034-93-56TSZ371 [address] [place], [place] [address] [place] [address] 03/12/2024 Secondary Insurance:[facility] MEDICAIDPolicy Number: [id number] Date:6621-28-53Gjag Name:Erinn Owens TISHDOB: [id number] [address] [place] [address] [facility]
--- OUTSIDE RECORDS SUMMARY | 2025-02-21 14:24 | XMS RPT_ITS ---
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 Name Role Phone WES MAGALLON Primary Care [...] DATE TYPE CONDITION / CODE ATTENDING STATUS [facility] 05/31/2024 Active Pulmonary emphys veronica, unspecified emphysema type (HCC) / J43.9(ICD-10) DALILA JENSEN Active [facility] 02/05/2025 Active Acute on chronic congestive heart failure, unspecified heart failure type (HCC) / I50.9(ICD-10) DALILA JENSEN Active [facility] 05/31/2024 Active Rheumatoid arthr itis, involving unspecified site, unspecified whether rheumatoid factor present (HCC) / M06.9(ICD-10) MIMI ESCOBAR Active [facility] 05/31/2024 Active Chronic obstruct aj pulmonary disease, unspecified COPD type (HCC) / J44.9(ICD-10) MIMI ESCOBAR Active [facility] 06/23/2023 Active Thyroid nodule / E04.1(ICD-10) MIMI ESCOBAR Active [facility] 05/10/2023 Active Iron deficiency anemia due to chronic blood loss / D50.0(ICD-10) MARKUS ESCOBARLINE Michelle Active [facility] 11/08/2022 Active Stage 3 chronic kidney disease, unspecified whether stage 3a or 3b CKD (HCC) / N18.30(ICD-10) PATRICIAMARKUS PEREZRISHABH Martinez Active [facility] 02/02/2022 Active Hypertension, es sential / I10(ICD-10) PATRICIAMARKUS PEREZLINE Michelle Active [facility] 02/02/2022 Active Pure hypercholes terolemia / E78.00(ICD-10) CEMENAMIMI A Active [facility] 05/11/2021 Active Pulmonary hypert ension (HCC) / I27.20(ICD-10) CEMENAMIMI A Active [facility] 09/25/2020 Active Prediabetes / R73.03(ICD-10) CEMENAMIMI A Active [facility] 06/23/2015 Active Chronic anticoag ulation / Z79.01(ICD-10) PATRICIAMARKUS PEREZRISHABH Martinez Active [facility] 12/13/2024 Active Medicare annual wellness visit, subsequent / Z00.00(ICD-10) CEMENAMIMI A Active [facility] 12/13/2024 Active Screening for de pression / Z13.31(ICD-10) CEMARKUSMIMI A Active [facility] 12/13/2024 Active Encounter for sc reening examination for other mental health and behavioral disorders / Z13.39(ICD-10) CEMENAMIMI A Active [facility] 12/13/2024 Active GERD without eso phagitis / K21.9(ICD-10) CE MIMI A Active [facility] 12/13/2024 Active Fatigue, unspeci fied type / R53.83(ICD-10) CE MIMI A Active [facility] 12/13/2024 Active Hypotension, uns pecified hypotension type / I95.9(ICD-10) MIMI ESCOBAR Active [facility] 02/02/2022 Active Paroxysmal atria l fibrillation (HCC) / I48.0(ICD-10) NA Active [facility] 02/02/2022 Active Hyperlipidemia, unspecified hyperlipidemia type / E78.5(ICD-10) NA Active [facility] 05/31/2024 Active Chronic obstruct aj pulmonary disease with acute lower respiratory infection (HCC) / J44.0(ICD-10) WES MAGALLON Active [facility] 02/15/2023 Active 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 / K22.70(ICD-10) [facility] 09/19/2022 Active 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) / I50.813(ICD-10) WES MAGALLON Active [facility] 03/23/2020 Active History of polym yalgia rheumatica / Z87.39(ICD-10) WES MAGALLON Active [facility] [place] 12/08/2008 Active Marfan's syndrom e / Q87.40(ICD-10) WES MAGALLON Active [facility] PROCEDURES No Procedure Records Found RESULTS PROGRESS Observed: 02/21/2025 4:08 PM Status: COMPLETED Source: [facility] HNO ID: [id number] Author: WES MAGALLON MD Service: ? Author Type: Physician Type: Progress Notes Filed: 02/21/2025 16:08 Note Text: agree PROGRESS Observed: 02/21/2025 2:52 PM Status: COMPLETED Source: [facility] HNO ID: [id number] Author: ABRAHAM POSADAS, PEYTON Service: ? Author Type: Registered Nurse Type: Progress Notes Filed: 02/21/2025 16:08 Note Text: patient had inr completed at [facility] patients inr is 2.0 (patients inr range is 2.0-3.0) patient is currently taking 2mg times [address] [facility] checked inr on 02/18 and got [...] Observed: 02/18/2025 12:00 AM Status: COMPLETED Source: [facility] NIMISHA CEJA ([id number]) 1945 F Date Time Provider Department 02/18/25 WES MAGALLON [facility] During your visit today, we recorded the following information about you: Alma Delia Doyle RN 02/18/2025 1:11 PM Signed [facility] Nurse Smith calling with the following updates: 1) [facility] reports pt had resting heart rate of [...] to be high, need to notify her blanket cutter hand. Alma Delia Doyle RN 02/18/2025 1:43 PM Signed [facility] Nurse Smith, given message below. Message also [...] Observed: 02/18/2025 12:00 AM Status: COMPLETED Source: [facility] NIMISHA CEJA ([id number]) 1945 F Date Time Provider Department 02/18/25 WES MAGALLON [facility] During your visit today, we recorded the following information about you: Alma Delia Doyle RN 02/18/2025 12:53 PM Signed Smith [facility] Nurse calling. Pt had INR scheduled for 02/21 at [facility]. [facility] was able to complete for patient at her home today instead. Last INR: INR 4.0 02/18/2025 Current dose of coumadin is: 2mg Mon,Wed and 3mg all other days. Last date of dose change: 03/05/2024. Previous INR (date and result): 2.6 on 01/16/25 patient had inr completed 02/18/25 by [facility] Nurse patients inr is 4.0 (patients inr range is 2.0-3.0) patient is currently taking 2mg Mon,Wed and 3mg all other days patients last dose change was on 03/05/24 due to a high level of 3.4 (dose at that time was 2mg Mon and 3mg all other days) 1) Please call [facility] Nurse with orders. 2) Please call patient with orders also, Note: She is SYCUAN. 3) Does provider want pt to keep [facility] appt for INR on 02/21, or change? PEYTON Voss William J, MD 02/18/2025 1:27 PM Signed Keep the th appt for inr Hold today and tomorrow and resume 2 mg a day. Recheck the th Alma Delia Doyle RN 02/18/2025 1:45 PM Signed [facility] Nurse Smith, given message below. Message also [...] (HCC) [I48.0] Order(s):PROTHROMBIN TIME [SQPT] Order #: [id number] Prescriptions as of 02/18/2025 - albuterol HFA [...] Observed: 02/07/2025 12:00 AM Status: COMPLETED Source: [facility] NIMISHA CEJA ([id number]) 1945 F Date Time Provider Department 02/07/25 [facility] During your visit today, we recorded the following information about you: Dalila Jensen APRN.TRICIA 02/07/2025 11:35 AM Signed Can we please fax notes to Abraham at [facility] so that she is aware of hospitalization and recommended cardiology follow-up in 1-2 weeks. JANICE Matthews Jamie, LPN 02/07/2025 12:07 PM Signed OV note faxed to [facility]. Sharath Skinner LPN Allergies As [...] Reason for Visit: OV notes faxed to [facility] [Other] Prescriptions as of 02/07/2025 [...] Observed: 02/05/2025 2:16 PM Status: COMPLETED Source: [facility] HNO ID: [id number] Author: DALILA JENSEN APRN.SHIATSU THERAPIST Service: ? Author Type: Nurse Practitioner Type: [...] present at today's visit. Recording using ambient Goojet software for draft documentation of the visit was discussed with the patient/authorized registered representative; all questions welcomed and answered. Patient/authorized registered representative agreed to proceed Subjective Recent Hospitalization: [...] status since discharge. CHF: - Managed by blanket cutter hand Abraham at [facility]. - Scheduled for a follow-up appointment in [...] changes. - Follow-up with cardiology (Abraham at [facility]) was recommended within 1-2 weeks post-discharge; patient [...] as needed for worsening/no improvement. Dalila Jensen APRN.SHIATSU THERAPIST CNOV Observed: 02/05/2025 2:00 PM Status: COMPLETED Source: [facility]IM[facility] CE[facility] ([id number]) 1945 F Date Time Provider Department 02/05/25 [...] Date of Discharge 01/25/2025 Provider Documentation Nimisha Cjea is a 79 year old female here today for a follow up from recent hospitalization. I have reviewed the patient's hospital course including discharge summary, discharge medications, and follow up needs with the patient and any family members present at today's visit. Recording using NextCare software for draft documentation of the visit was discussed with the patient/authorized registered representative; all questions welcomed and answered. Patient/authorized registered representative agreed to proceed Subjective Recent Hospitalization: [...] status since discharge. CHF: - Managed by blanket cutter hand Abraham at [facility]. - Scheduled for a follow-up [...] position changes. - Follow-up with cardiology (Abraham [facility]) was recommended within 1-2 weeks [...] by mouth once daily. Level of Service: [facility] F2F 14 JAMI D DISCHARGE [[id number]] Encounter Status:Closed by DALILA JENSEN on 02/07/25 FREDY Observed: 02/04/2025 12:00 AM Status: COMPLETED Source: [facility] NIMISHA CEJA ([id number]) 1945 F Date Time Provider Department 02/04/25 WES MAGALLON [facility] During your visit today, we recorded the following information about you: Alma Delia Doyle, RN 02/04/2025 11:[address] [facility] STACY Nurse calling to give pt update. [...] Call nurse Maggie for any orders, at [phone] Will send this update to provider Dalila, [...] Observed: 01/29/2025 12:00 AM Status: COMPLETED Source: [facility] MARCIALNIMISHA Graciela ([id number]) 1945 F Date Time Provider Department 01/29/25 [facility] During your visit today, we recorded the following information about you: Usman Martinez RN 01/29/2025 11:34 AM Signed Marquise- PT- [facility] HH reporting POC: saw patient one time [...] PM Signed Left message on Deisy [facility] Clinical Coiled Tubing Supervisor, voicemail to call back with pulse rate. Spoke with Nimisha. She said the nurse told her, her oxygen was perfect, her blood pressure was fine. She could not remember what her pulse was. She is feel better today. Debbie Long MA January 30, 2025 3:56 PM Deana Coleman RN 01/30/2025 4:06 PM Signed Brandon from [facility] calls and states that patient's blood pressure [...] Date Reviewed: 03/28/2024 Reviewed by: Mimi Escobar APRN.SHIATSU THERAPIST - Fully Assessed Reason for Visit: PT- [facility] POC and pt update [Other] Prescriptions as [...] Observed: 01/27/2025 2:16 PM Status: COMPLETED Source: [facility] HNO ID: [id number] Author: ASHLEY JENKINS LPN Service: ? Author [...] Discharge 01/25/2025 SUMMARY: -Pt discharged from [facility] on 01/25/25. -Follow up appointment on 01/29/25. -Medication review done yes. -Admitted for: CHF CONCERNS: CHF NEW MEDICATIONS: Yes, Pt did not remember but mentioned two were ordered. Pt thought one medication was steroids MEDS HELD/DISCONTINUED: No BRIEF HOSPITAL COURSE: CNPTOUTREACH Observed: 01/27/2025 12:00 AM Status: COMPLETED Source: [facility] NIMISHA CEJA ([id number]) 1945 F Date Time Provider Department 01/27/25 [facility] During your visit today, we recorded the [...] Discharge 01/25/2025 SUMMARY: -Pt discharged from [facility] on 01/25/25. -Follow up appointment on 01/29/25. [...] Date Reviewed: 03/28/2024 Reviewed by: Mimi Escobar APRN.SHIATSU THERAPIST - Fully Assessed Reason for Visit: Transition [...] Observed: 01/24/2025 12:00 AM Status: COMPLETED Source: [facility] NIMISHA CEJA ([id number]) 1945 F Date Time Provider Department 01/24/25 WES MAGALLON [facility] During your visit today, we recorded the following information about you: Nay Cottrell, RN 01/24/2025 2:56 PM Signed Edith with [facility] HH calls to ask if provider would be willing to follow their HH orders for SN and PT. Patient currently at [facility] for COPD and CHF exacerbation with hypoxemia. Plan is to discharge patient tomorrow after she has had another round of steroids. Patient will not be coming home on oxygen at this point. Call back number for Edith is [phone]. Please review and advise, PEYTON Schmidt William [...] Date Reviewed: 03/28/2024 Reviewed by: Mimi Escobar APRN.SHIATSU THERAPIST - Fully Assessed Reason for Visit: Orders [...] Observed: 01/16/2025 5:16 PM Status: COMPLETED Source: [facility] HNO ID: [id number] Author: MIMI ESCOBAR APRN.SHIATSU THERAPIST Service: ? Author Type: Nurse Practitioner Type: Progress Notes Filed: 01/16/2025 17:17 Note Text: Agree with anticoag. PROGRESS Observed: 01/16/2025 2:47 PM Status: COMPLETED Source: [facility] HNO ID: [id number] Author: ABRAHAM POSADAS, RN Service: ? Author Type: Registered Nurse Type: Progress Notes Filed: 01/16/2025 17:17 Note Text: patient had inr completed at [facility] patients inr is 2.6 (patients inr range [...] Observed: 01/07/2025 2:59 PM Status: COMPLETED Source: [facility] HNO ID: [id number] Author: WES MAGALLON MD Service: ? Author Type: Physician Type: Progress Notes Filed: 01/07/2025 14:59 Note Text: agree PROGRESS Observed: 01/07/2025 2:15 PM Status: COMPLETED Source: [facility] HNO ID: [id number] Author: ABRAHAM POSADAS, PEYTON Service: ? Author [...] Observed: 12/23/2024 12:00 AM Status: COMPLETED Source: [facility] Telephone ([facility]) NIMISHA CEJA ([id number]) 1945 F Date Time Provider Department 12/23/24 MIMI ESCOBAR [facility] During your visit today, we recorded the following information about you: Jaqueline Person LPN 12/23/2024 12:08 PM Signed View External Labs - Chemistry [ID [id number]] View External Labs - Hematology [ID [id number]] Labs results from labs ordered at visit [...] Date Reviewed: 03/28/2024 Reviewed by: Mimi Escobar, PADMA.SHIATSU THERAPIST - Fully Assessed Reason for Visit: Results [95] Order(s):HBA1C (OUTSIDE) [8924668] Order #: [id number] TSH (EXTERNAL) [6079971] Order #: [id number] CREATININE SERUM [7741225] Order #: [id number] Prescriptions as of 01/17/2025 - furosemide (LASIX) [...] Observed: 12/13/2024 2:33 PM Status: COMPLETED Source: [facility] HNO ID: [id number] Author: MIMI ESCOBAR APRN.CNP Service: ? Author [...] as Physician (Urology) Flaquito Mariee MD as Farm Appraiser (Pulmonary Disease) Wes Magallon MD as Home Care Provider (Family Medicine) Mera Langford MD as Referring Dalila Jensen APRN.CNP as Thermodynamics Teacher (Family Medicine) Mimi Escobar APRN.CNP as Thermodynamics Teacher (Family Medicine) Concerns today: Fatigue, unsteady, upper [...] Regurgitation - 06/18/2021 Comment: 04/27/21 Echo at [facility]. Pulmonary Hypertension (Hcc) - 05/11/2021 Chronic Obstructive Pulmonary Disease (Hcc) - 04/28/2021 Comment: Dr Mariee released her from his care. Rheumatoid Arthritis, Unspecified ([facility]) - 04/28/2021 Comment: Has been stable. Not seen rheum in some time. Prediabetes - 09/25/2020 Thyroid Nodule - 05/11/2020 Comment: Seeing Abimael Evans Negative FNA 06/28-recommended repeat us in one year. Hypertension, Essential - 06/23/2015 Chronic Anticoagulation - 06/23/2015 Paroxysmal Atrial Fibrillation (Hcc) Comment: Sees [facility] Hyperlipidemia - 01/19/2011 Comment: Mildly elevated [...] Moderate mitral regurgitation 06/18/2021 04/27/21 Echo at [facility]. Pleural effusion, right 05/05/2020 CXR [...] ABDOMINAL HYSTERECT W/WO RMVL TUBE OVARY Hysterectomy, [facility] Medication List Current Outpatient Medications Medication Sig [...] blood pressure at home. 9. Pulmonary hypertension ([facility]) (I27.20) - Scheduled for pulmonary function test and chest X-ray. - Results to be sent to [facility] for review. 10. Chronic obstructive pulmonary disease, unspecified COPD type ([facility]) (J44.9) - Scheduled for pulmonary function test and chest X-ray. - Results to be sent to [facility] for review. 11. Stage 3 chronic kidney disease, unspecified whether stage 3a or 3b CKD ([facility]) (N18.30) - Monitor renal function with upcoming lab work. 12. Thyroid nodule (E04.1) - Ordered thyroid function tests. 13. Iron deficiency anemia due to chronic blood loss (D50.0) - Monitor hemoglobin and hematocrit levels with upcoming lab work. 14. Rheumatoid arthritis, involving unspecified site, unspecified whether rheumatoid factor present ([facility]) (M06.9) - Well-controlled. - Continue [...] as Physician (Urology) Flaquito Mariee MD as Farm Appraiser (Pulmonary Disease) Wes Magallon MD as Home Care Provider (Family Medicine) Mera Langford MD as Referring Dalila Jensen APRN.SHIATSU THERAPIST as Thermodynamics Teacher (Family Medicine) Mimi Escobar APRN.CNP as Thermodynamics Teacher (Family Medicine) Medical/Family history review Reviewed and [...] Observed: 12/13/2024 2:20 PM Status: COMPLETED Source: [facility] Office Visit ([facility]) NIMISHA CEJA ([id number]) 1945 F Date Time Provider Department 12/13/24 2:20 PM [facility] During your visit today, we recorded the [...] as Physician (Urology) Flaquito Mariee MD as Farm Appraiser (Pulmonary Disease) Wes Magallon MD as Home Care Provider (Family Medicine) Mera Langford MD as Referring Dalila Jensen APRN.CNP as Thermodynamics Teacher (Family Medicine) Mimi Escobar APRN.CNP as Thermodynamics Teacher (Family Medicine) Concerns today: Fatigue, unsteady, upper [...] Regurgitation - 06/18/2021 Comment: 04/27/21 Echo at [facility]. Pulmonary Hypertension (Hcc) - 05/11/2021 Chronic Obstructive Pulmonary Disease (Hcc) - 04/28/2021 Comment: Dr Mariee released her from his care. Rheumatoid Arthritis, Unspecified ([facility]) - 04/28/2021 Comment: Has been stable. Not seen rheum in some time. Prediabetes - 09/25/2020 Thyroid Nodule - 05/11/2020 Comment: Seeing Abimael Evans Negative FNA 06/28-recommended repeat us in one year. Hypertension, Essential - 06/23/2015 Chronic Anticoagulation - 06/23/2015 Paroxysmal Atrial Fibrillation (Hcc) Comment: Sees [facility] Hyperlipidemia - 01/19/2011 Comment: Mildly elevated [...] intolerance PAST MEDICAL HISTORY Diagnosis Date A-fib ([facility]) Class 1 congestive heart failure, unspecified failure chronicity, systolic (HCC) 11/21/2019 Dysphagia, unspecified(787.20) Esophageal reflux Esophagitis, unspecified Marfan's syndrome ([facility]) Moderate mitral regurgitation 06/18/2021 04/27/21 Echo at [facility]. Pleural effusion, right 05/05/2020 CXR [...] ABDOMINAL HYSTERECT W/WO RMVL TUBE OVARY Hysterectomy, [facility] Medication List Current Outpatient Medications Medication Sig [...] X-ray. - Results to be sent to [facility] for review. 10. Chronic obstructive pulmonary disease, unspecified COPD type (HCC) (J44.9) - Scheduled for pulmonary function test and chest X-ray. - Results to be sent to [facility] for review. 11. Stage 3 chronic kidney [...] as Physician (Urology) Flaquito Mariee MD as Farm Appraiser (Pulmonary Disease) Wes Magallon MD as Home Care Provider (Family Medicine) Mera Langford MD as Referring Dalila Jensen APRN.SHIATSU THERAPIST as Thermodynamics Teacher (Family Medicine) Mimi Escobar APRN.CNP as Thermodynamics Teacher (Family Medicine) Medical/Family history review Reviewed and [...] pulmonary function test and chest x-ray at [place] as arranged by your blanket cutter hand. - Complete the lab work for thyroid function and amiodarone monitoring at [place] when you go for your tests; these orders have been sent to [facility]. - If you decide you?d like [...] review all the medicines you take, even bncn-znq-ykdeyrd medicines. As you get older, the way [...] Date Reviewed: 03/28/2024 Reviewed by: Mimi Escobar APRN.SHIATSU THERAPIST - Fully Assessed Reason for Visit: Medicare [...] type [I95.9] Order(s):DEPRESSION SCREENING [] Order #: [id number]: 1 ANXIETY SCREENING [] Order #: [id number]: 1 COMPLETE BLOOD COUNT AND DIFFERENTIAL [SQCBCDIF] Order #: [id number] FUTURE COMPREHENSIVE METABOLIC PANEL [SQCMP] Order #: [id number] FUTURE VITAMIN B12 [SQB12] Order #: [id number] FUTURE IRON AND TIBC [SQIRON] Order #: [id number] FUTURE FERRITIN [SQFERR] Order #: [id number] FUTURE THYROID STIMULATING HORMONE [SQTSH] Order #: [id number] FUTURE furosemide (LASIX) 40 mg tabletTake 1 tablet by mouth once daily.Disp: 90 tabletRfl: 3 omeprazole (PRILOSEC) 20 mg capsuleTake 1 capsule by mouth two times a day.Disp: 180 capsuleRfl: 3 MAGNESIUM [SQMG1] Order #: [id number] FUTURE HEMOGLOBIN A1C [AKPCM2B] Order #: [id number] FUTURE metoprolol tartrate, short acting, (LOPRESSOR) 25 [...] pulmonary function test and chest x-ray at [place] as arranged by your blanket cutter hand. - Complete the lab work for thyroid function and amiodarone monitoring at [place] when you go for your tests; these orders have been sent to [facility]. - If you decide you?d like [...] review all the medicines you take, even bfay-lqm-qevgpcb medicines. As you get older, the way [...] for Encounter Date Provider Department Center 12/13/2024 [id number]-KSDMRSJOSEPH ESCOBAR*BERTIN Anisha [facility] Encounter Status:Closed by MIMI ESCOBAR on 12/13/24 PROGRESS Observed: 11/28/2024 3:26 PM Status: COMPLETED Source: [facility] HNO ID: [id number] Author: MIMI ESCOBAR APRN.TRICIA Service: ? Author Type: Nurse Practitioner Type: Progress Notes Filed: 11/28/2024 15:26 Note Text: Agree with anticoag recommendation PROGRESS Observed: 11/28/2024 2:21 PM Status: COMPLETED Source: [facility] HNO ID: [id number] Author: ABRAHAM POSADAS, RN Service: ? Author Type: Registered Nurse Type: Progress Notes Filed: 11/28/2024 15:26 Note Text: patient had inr completed at [facility] patients inr is 2.5 (patients inr range [...] Observed: 11/18/2024 12:00 AM Status: COMPLETED Source: [facility] Telephone ([facility]) NIMISHA [id number]) 1945 F Date Time Provider Department 11/18/24 [...] be ok. Patient requests call back at [phone] with provider response. PEYTON Schmidt William J, [...] Date Reviewed: 03/28/2024 Reviewed by: Mimi Escobar APRN.SHIATSU THERAPIST - Fully Assessed Reason for Visit: Patient Question [8607] Prescriptions as of 11/18/2024 - warfarin (COUMADIN) [...] Observed: 10/31/2024 3:47 PM Status: COMPLETED Source: [facility] HNO ID: [id number] Author: MIMI ESCOBAR APRN.CNP Service: ? Author Type: Nurse Practitioner Type: Progress Notes Filed: 10/31/2024 15:48 Note Text: Agree with anticoag recommendation PROGRESS Observed: 10/31/2024 3:08 PM Status: COMPLETED Source: [facility] HNO ID: [id number] Author: ABRAHAM POSADAS, PEYTON Service: ? Author Type: Registered Nurse Type: Progress Notes Filed: 10/31/2024 15:48 Note Text: patient had inr completed at [facility] patients inr is 2.5 (patients [...] Observed: 10/03/2024 2:55 PM Status: COMPLETED Source: [facility] HNO ID: [id number] Author: WES MAGALLON MD Service: ? Author Type: Physician Type: Progress Notes Filed: 10/03/2024 14:55 Note Text: agree PROGRESS Observed: 10/03/2024 2:53 PM Status: COMPLETED Source: [facility] HNO ID: [id number] Author: ABRAHAM POSADAS, PEYTON Service: ? Author Type: Registered Nurse Type: Progress Notes Filed: 10/03/2024 14:55 Note Text: patient had inr completed at [facility] patients inr is 2.3 [...] Observed: 09/17/2024 12:00 AM Status: COMPLETED Source: [facility] Telephone ([email or web address]) NIMISHA CEJA ([id number]) 1945 F Date Time Provider Department 09/17/24 WES MAGALLON [facility] During your visit today, we recorded the [...] Date Reviewed: 03/28/2024 Reviewed by: Mimi Escobar APRN.SHIATSU THERAPIST - Fully Assessed Reason for Visit: Medication [...] Observed: 09/02/2024 2:48 PM Status: COMPLETED Source: [facility] HNO ID: [id number] Author: WES MAGALLON MD Service: ? Author Type: Physician Type: Progress Notes Filed: 09/02/2024 14:49 Note Text: agree PROGRESS Observed: 09/02/2024 2:46 PM Status: COMPLETED Source: [facility] HNO ID: [id number] Author: ABRAHAM POSADAS RN Service: ? Author Type: Registered Nurse Type: Progress Notes Filed: 09/02/2024 14:49 Note Text: patient had inr completed at [facility] patients inr is 2.5 (patients inr range [...] Observed: 07/29/2024 2:22 PM Status: COMPLETED Source: [facility] HNO ID: [id number] Author: WES MAGALLON MD Service: ? Author Type: Physician Type: Progress Notes Filed: 07/29/2024 14:22 Note Text: agree PROGRESS Observed: 07/29/2024 2:10 PM Status: COMPLETED Source: [facility] HNO ID: [id number] Author: ABRAHAM POSADAS, RN Service: ? Author Type: Registered Nurse Type: Progress Notes Filed: 07/29/2024 14:22 Note Text: patient had inr completed at [facility] patients inr is 2.7 (patients inr [...] Collected: 12/2024 11:29 AM Status: F Source: [facility] Order Comment: Specimen Type : BLOOD SPECIMEN Ordering Facility: [facility] Address: [address] [place] [address] TYPE CODE TESTS RESULT OUT OF RANGE REFERENCE UNITS LAB 1751-7(LOINC) Albumin SerPl-mCnc 4.2 3.9-4.9 g/dL LAB 1975-2(LOINC) Bilirub SerPl-mCnc 0.4 0.2-1.3 mg/dL LAB 55707-8(LOINC) Bilirub Conj SerPl-mCnc 0.2 <0.3 mg/dL LAB 6768-6(LOINC) ALP SerPl-cCnc 102 34-123 U/L LAB 1920-8(LOINC) AST SerPl-cCnc 22 13-35 U/L LAB 1742-6(LOINC) ALT SerPl-cCnc 17 7-38 U/L LAB 2885-2(LOINC) Prot SerPl-mCnc 7.4 6.3-8.0 g/dL Performed By: #### 34682-0, 31199-1 #### [facility] CLIA [id number] [address] [place] [address] [place] LIPID 1996 PNL SERPL Collected: 025 11:29 AM Status: F Source: [facility] Order Comment: Specimen Type : BLOOD SPECIMEN Ordering Facility: [facility] Address: [address] [place] [address] TYPE CODE TESTS RESULT OUT OF RANGE [...] risk factor for coronary heart disease LAB 05559-4(LOINC) NonHDLc SerPl-mCnc 110 <130 mg/dL Result Comment: <130 mg/dL, Optimal 130-159 mg/dL, Near optimal/above optimal 160-189 mg/dL, Borderline high 190-219 mg/dL, High >219 mg/dL, Very high Secondary prevention optimal non HDL Cholesterol levels are recommended to be <100 mg/dL LAB FT FASTING TIME 12 hrs LAB 58558-9(LOINC) VLDLc SerPl Calc-mCnc 16 <30 mg/dL LAB 9830-1(LOINC) Cholest/HDLc SerPl 2.64 <5.10 LAB 2089-1(LOINC) LDLc SerPl-mCnc 94 <100 mg/dL Result Comment: <100 mg/dL, Optimal 100-129 mg/dL, Near optimal/above optimal 130-159 mg/dL, Borderline high 160-189 mg/dL, High >189 mg/dL, Very high Secondary prevention optimal LDL Cholesterol levels are recommended to be < 70 mg/dL LAB 09898-7(LOINC) LDLc/HDLc SerPl 1.40 <2.54 Result Comment: Reference: 1. National Cholesterol Education Program ATP III Guideline At-A-Glance Quick Desk Reference: National Heart, Lung, and Blood Emerson. National Institutes of Health. 2001: NIH Publication No. 01-3305. 2. An International Atherosclerosis Society position paper: global recommendations for the management of dyslipidemia: executive summary, Atherosclerosis. 2014: 232(2):410-413. Performed By: #### 32538-9, 54881-7 #### [facility] CLIA [id number] [address] [place] [address] PROGRESS Observed: 06/28/2024 2:06 PM Status: COMPLETED Source: [facility] HNO ID: [id number] Author: WES MAGALLON MD Service: ? Author Type: Physician Type: Progress Notes Filed: 06/28/2024 14:06 Note Text: agree PROGRESS Observed: 06/28/2024 1:40 PM Status: COMPLETED Source: [facility] HNO ID: [id number] Author: ABRAHAM POSADAS RN Service: ? Author Type: Registered Nurse Type: Progress Notes Filed: 06/28/2024 14:06 Note Text: patient had inr completed at [facility] patients inr is 2.4 (patients inr [...] Observed: 06/20/2024 12:00 AM Status: COMPLETED Source: [facility] Telephone (FAMPWS) NIMISHA CEJA ([id number]) 1945 F Date Time Provider Department 06/20/24 [...] Date Reviewed: 03/28/2024 Reviewed by: Mimi Escobar APRN.SHIATSU THERAPIST - Fully Assessed Reason for Visit: INR [...] 05/10/2023 Encounter Status:Closed by Usman MARTINEZ on 06/20/24 CNPN Observed: 06/17/2024 12:00 AM Status: COMPLETED Source: [facility] Telephone (FAMPWS) NIMISHA CEJA ([id number]) 1945 F Date Time Provider Department 06/17/24 WES MAGALLON During your visit today, we recorded the following information about you: Felisha Ambriz LPN 06/17/2024 3:02 PM Signed Patient calling asking to have Gastro referral faxed to Dr Don Flores office at [phone]. Printed referral, face sheet, office notes and [...] Date Reviewed: 03/28/2024 Reviewed by: Mimi Escobar APRN.SHIATSU THERAPIST - Fully Assessed Reason for Visit: fax [...] Observed: 06/03/2024 12:00 AM Status: COMPLETED Source: [facility]IM[facility] ([id number]) 1945 F Date Time Provider Department 06/03/24 WES MAGALLON [facility] During your visit today, we recorded the following information about you: Wes Magallon MD 06/03/2024 11:58 AM Signed Labs are stable, except her cholesterol is up. She had issues with crestor in the past, would she be willing to try a different one like lipitor? Debbie Long MA 06/03/2024 12:24 PM Signed Patient is willing to try medication. Please send to [facility]. She is aware will need to repeat [...] 3 HEPATIC FUNCTION PNL [SQHFP] Order #: [id number] FUTURE LIPID PANEL BASIC [SQLIPB] Order #: [id number] FUTURE Prescriptions as of 06/03/2024 - atorvastatin [...] 05/31/2024 2:[address] atus: F Source: [facility] Order Comment: Specimen Type : BLOOD SPECIMEN Ordering Facility: [facility] Address: [address] [place] [address] TYPE CODE TESTS RESULT OUT OF RANGE [...] MCHC RBC Auto-mCnc 31.2 30.5-36.0 g/dL LAB 96948-0(LOINC) RDW RBC-Rto 15.3 High 11.5-15.0 % LAB 777-3(LOINC) Platelet # Bld Auto 336 150-400 k/uL LAB 04742-4(LOINC) PMV Bld Auto 9.4 9.0-12.7 fL LAB [...] # Bld Auto 0.09 <0.11 k/uL LAB 51142-6(LOINC) Imm Granulocytes/srinivasa k NFr Bld Auto 0.3 % LAB 84379-9([facility]) Imm Granulocytes # Bld Auto <0.03 <0.10 k/uL LAB 08487-1(INC) nRBC/100 WBC Bld-Rto 0.0 /100 WBC LAB 771-6([facility]) nRBC # Bld Auto <0.01 <0.01 k/u L LAB 45555-2([facility]) Differential method Bld Auto Performed By: #### 36658-7 # ### [facility] CLIA [id number] [address] [place] [address] [place] DEPRECATED HGB A1C BLD Collected: 05/31 2:51 PM Status: F Source: [facility] Order Comment: Specimen Type : BLOOD SPECIMEN Ordering Facility: [facility] Address: [address] [place] [address] TYPE CODE TESTS RESULT OUT OF RANGE REFERENCE UNITS LAB 4548-4([facility]) HbA1c MFr Bld 5.9 High 4.3-5.6 % Result Comment: [place] Lanie betes Association guidelines indicate that patients with HgbA1c in the range 5.7-6.4% are at increased risk for development of diabetes, and intervention by lifestyle modification may be beneficial. HgbA1c greater or equal to 6.5% is considered diagnostic of diabetes. LAB 82835-8(LOINC) Est. average glucose Bld gHb Est-mCnc 123 mg/dL Result Comment: eAG: (Estima jil average glucose) is a calculated value from HgbA1c and is registered representative of the average blood glucose level in the last 2-3 month period. Performed By: #### 88797-2 # ### [facility] CLIA [id number] [address] [place], [place] [address] [address] [place] COMP METAB 2000 PNL SERPL Collected: 2:51 PM Status: F Source: [facility] Order Comment: Specimen Type : BLOOD SPECIMEN Ordering Facility: [facility] Address: [address] [place] [address] TYPE CODE TESTS RESULT OUT OF RANGE REFERENCE UNITS LAB 2885-2(LOINC) Prot SerPl-mCnc 7.6 6.3-8.0 g/dL LAB 1751-7(LOINC) Albumin SerPl-mCnc 4.3 3.9-4.9 g/dL LAB 81570-3(LOINC) Calcium SerPl-mCnc 9.0 8.5-10.2 mg/dL LAB 1975-2(LOINC) Bilirub SerPl-mCnc 0.5 0.2-1.3 mg/dL LAB 6768-6(INC) ALP SerPl-cCnc 101 34-123 U/L LAB 1920-8(LOINC) AST SerPl-cCnc 22 13-35 U/L LAB 1742-6(LOINC) ALT SerPl-cCnc 13 7-38 U/L LAB 2345-7(LOINC) Glucose SerPl-mCnc 105 High 74-99 mg/dL Result Comment: The [place] Diabetes Association (ADA) provides guidance for cutoff [...] Standards of Medical Care in Diabetes 2016, [place] Diabetes Association. Diabetes Care. 2016.39(Suppl 1). LAB 3094-0(LOINC) BUN SerPl-mCnc 13 7-21 mg/ dL LAB 2160-0(LOINC) Creat SerPl-mCnc 0.81 0.58-0.96 mg/dL LAB 2951-2(LOINC) Sodium SerPl-sCnc 136 136-144 mmol/L LAB 2823-3(LOINC) Potassium SerPl-sCnc 4.4 3.7-5.1 mmol/L LAB 2075-0(LOINC) Chloride SerPl-sCnc 99 98-107 mmol/L LAB 2028-9(LOINC) CO2 SerPl-sCnc 24 22-30 mmo l/L LAB 86525-6(LOINC) Anion Gap SerPl-sCnc 13 8-15 mmol/L LAB 19366-1(LOINC) Creatinine + eGFR Pnl SerPlBld 74 >=60 [...] accurately reflect actual GFR. Performed By: #### 13899-7, LIPNF #### [facility] CLIA [id number] [address] [place] [address] [place] LIPID PANEL, NONFASTING Collected: 05/31/2024 2:51 PM Status: F Source: [facility] Order Comment: Specimen Type : BLOOD SPECIMEN Ordering Facility: [facility] Address: [address] [place] [address] TYPE CODE TESTS RESULT OUT OF RANGE [...] Desk Reference: National Heart, Lung, and Blood Emerson. National Institutes of Health. 2001: NIH Publication No. 01-3305. 2. An International Atherosclerosis Society position paper: global recommendations for the management of dyslipidemia: executive summary, Atherosclerosis. 2014: 232(2):410-413. Performed By: #### 38071-9, LIPNF #### [facility] CLIA [id number] [address] [place] [address] [place] CNOV Observed: 05/31/2024 2:00 PM Status: COMPLETED Source: [facility]IM[facility] ([id number]) 1945 F Date Time Provider Department 05/31/24 [...] too fast so she is careful Sees [facility]. GERD: Patient takes: omeprazole Heartburn [...] Moderate mitral regurgitation 06/18/2021 04/27/21 Echo at [facility]. Pleural effusion, right 05/05/2020 CXR [...] 241.0, ICD10: E04.1 - per surgery at [place]. Wes Magallon MD Allergies As of Date: 05/31/2024 Noted Allergy Reaction CRESTOR (ROSUVASTATIN CALCIUM) 01/19/2011 14 - Other: See Comments Comments: Myalgia. IBUPROFEN 12/04/2008 14 - Other: See Comments Comments: dizzy PREVNAR 13 (PNEUMOC 13-CHU CONJ-D*07/27/2015 2 - Rash Comments: Presumed reaction to Prevnar. LATEX 12/08/2008 2 - Rash Comments: Local contact rash. Date Reviewed: 03/28/2024 Reviewed by: Mimi Escobar APRN.SHIATSU THERAPIST - Fully Assessed Reason for Visit: 6 [...] Thyroid nodule [E04.1] Order(s):ADVANCE CARE PLAN DISCUSSION [7813446] Order #: [id number]: 1 COMPLETE BLOOD COUNT AND DIFFERENTIAL [SQCBCDIF] Order #: [id number] FUTURE COMPREHENSIVE METABOLIC PANEL [SQCMP] Order #: [id number] FUTURE LIPID PANEL, NONFASTING [SQLIPNF] Order #: [id number] FUTURE HEMOGLOBIN A1C [PDESJ8G] Order #: [id number] FUTURE CONSULT TO GASTROENTEROLOGY [9010] Order #: [id number]: 1 FUTURE Prescriptions as of 05/31/2024 - [...] for Encounter Date Provider Department Center 05/31/2024 [id number] MAGALLON FAMPWS [facility] Anisha Encounter Status:Closed by WES MAGALLON on 05/31/24 PROGRESS Observed: 05/31/2024 1:47 PM Status: [facility]TED [id number] Author: WES MAGALLON MD Service: ? Author [...] Moderate mitral regurgitation 06/18/2021 04/27/21 Echo at [facility]. Pleural effusion, right 05/05/2020 CXR [...] 241.0, ICD10: E04.1 - per surgery at [place]. Wes Magallon MD PROGRESS Observed: 05/23/2024 4:25 PM Status: COMPLETED Source: [facility] HNO ID: [id number] Author: MIMI ESCOBAR APRN.TRICIA Service: ? Author Type: Clinical Nurse Specialist Type: Progress Notes Filed: 05/23/2024 16:25 Note Text: Agree with anticoag recommendations PROGRESS Observed: 05/23/2024 2:16 PM Status: COMPLETED Source: [facility] HNO ID: [id number] Author: ABRAHAM POSADAS RN Service: ? Author Type: Registered Nurse Type: Progress Notes Filed: 05/23/2024 16:25 Note Text: patient had inr completed at [facility] patients inr is 2.2 (patients inr [...] Observed: 05/15/2024 10:50 AM Status: COMPLETED Source: [facility] HNO ID: [id number] Author: JOLENE EMERY RN Service: ? Author Type: Registered Nurse Type: Progress Notes Filed: 05/15/2024 10:58 Note Text: [facility] Telephonic Outreach Provider Action/FYI Contacted for: [...] more often than normal? No Based on manufacturing weaver, the following disposition is advised: No symptoms or symptoms present, not severe. Routed to: No Action Needed FAVIOLA Education Provided this Outreach: No Jolene Emery RN May 15, 2024 10:57 AM CNPTOUTREACH Observed: 05/15/2024 12:00 AM Status: COMPLETED Source: [facility] Patient Outreach ([facility]) NIMISHA CEJA ([id number]) 1945 F Date Time Provider Department 05/15/24 JOLENE EMERY [facility] During your visit today, we recorded the [...] more often than normal? No Based on manufacturing weaver, the following disposition is advised: No symptoms [...] Date Reviewed: 03/28/2024 Reviewed by: Mimi Escobar APRN.SHIATSU THERAPIST - Fully Assessed Reason for Visit: CDM [...] Observed: 04/25/2024 3:10 PM Status: COMPLETED Source: [facility] HNO ID: [id number] Author: MIMI ESCOBAR APRN.CNP Service: ? Author Type: Clinical Nurse Specialist Type: Progress Notes Filed: 04/25/2024 15:10 Note Text: Agree with anticoag recommendation PROGRESS Observed: 04/25/2024 2:14 PM Status: COMPLETED Source: [facility] HNO ID: [id number] Author: ABRAHAM POSADAS, RN Service: ? Author [...] Observed: 04/25/2024 12:00 AM Status: COMPLETED Source: [facility] Telephone (LUANA) NIMISHA CEJA ([id number]) 1945 F Date Time Provider Department 04/25/24 [...] Reviewed: 03/28/2024 Reviewed by: Suppan, Mimi A, RELATIONSHIP MANAGEMENT LEAD.SHIATSU THERAPIST - Fully Assessed Reason for Visit: Orders [681] Cmt: poc protime Primary Visit Diagnosis:Atrial fibrillation, chronic (HCC) [I48.20] Order(s):INR (POC) [0935453] Order #: [id number] STANDING PROTHROMBIN TIME [SQPT] Order #: [id number] STANDING Prescriptions as of 04/25/2024 - warfarin [...] 05/10/2023 Encounter Status:Closed by WES MAGALLON on 04/25/24 PROGRESS Observed: 04/24/2024 5:58 PM Status: COMPLETED Source: [facility] HNO ID: [id number] Author: JOLENE EMERY RN Service: ? Author Type: Registered Nurse Type: Progress Notes Filed: 04/24/2024 17:59 Note Text: [facility] Telephonic Outreach Provider Action/FYI Contacted for: Routine Telephonic Outreach Contact made with patient: No, unable to leave message. Jolene Emery RN April 24, 2024 5:59 PM CNPTOUTRLARISA Observed: 04/24/2024 12:00 AM Status: COMPLETED Source: [facility] Patient Outreach ([facility]) NIMISHA CEJA ([id number]) 1945 F Date Time Provider Department 04/24/24 JOLENE EMERY During your visit today, we recorded the following information about you: Jolene Emery RN 04/24/2024 5:59 PM Signed [facility] Telephonic Outreach Provider Action/FYI Contacted for: [...] Date Reviewed: 03/28/2024 Reviewed by: Mimi Escobar APRN.SHIATSU THERAPIST - Fully Assessed Reason for Visit: CDM [...] Observed: 03/29/2024 11:22 AM Status: COMPLETED Source: [facility] HNO ID: [id number] Author: JOLENE EMERY, RN Service: ? Author Type: Registered Nurse Type: Progress Notes Filed: 03/29/2024 11:25 Note Text: CDM Telephonic Outreach Provider Action/FYI Patient will have a CT chest at [facility] on 04/04 Contacted for: Routine Telephonic Outreach [...] more often than normal? No Based on manufacturing weaver, the following disposition is advised: No symptoms or symptoms present, not severe. Routed to: No Action Needed FAVIOLA Education Provided this Outreach: No Jolene Emery RN March 29, 2024 11:23 AM PROGRESS Observed: 03/28/2024 2:34 PM Status: COMPLETED Source: [facility] HNO ID: [id number] Author: MIMI ESCOBAR APRN.TRICIA Service: ? Author Type: Clinical Nurse Specialist Type: Progress Notes Filed: 03/28/2024 14:35 Note Text: Agree with anticoagulation recommendation PROGRESS Observed: 03/28/2024 2:25 PM Status: COMPLETED Source: [facility] HNO ID: [id number] Author: ABRAHAM POSADAS RN Service: ? Author Type: Registered Nurse Type: Progress Notes Filed: 03/28/2024 14:35 Note Text: patient had inr completed at [facility] patients inr is 2.4 (patients inr [...] Observed: 03/27/2024 6:44 PM Status: COMPLETED Source: [facility] HNO ID: [id number] Author: JOLENE EMERY RN Service: ? Author Type: Registered Nurse Type: Progress Notes Filed: 03/27/2024 18:47 Note Text: CDM Telephonic Outreach Provider Action/FYI Contacted for: Routine Telephonic Outreach Contact made with patient: Yes Patient would like a call back at another time, she is making dinner. Jolene Emery RN March 27, 2024 6:46 PM CNPTOUTREACH Observed: 03/27/2024 12:00 AM Status: COMPLETED Source: [facility] Patient Outreach ([facility]) NIMISHA CEJA ([id number]) 1945 F Date Time Provider Department 03/27/24 JOLENE EMERYNiki During your visit today, we recorded the following information about you: Jolene Emery RN 03/27/2024 6:47 PM Signed [facility] Telephonic Outreach Provider Too/CAROLYN Contacted for: Routine Telephonic Outreach Contact made with patient: Yes Patient would like a call back at another time, she is making dinner. Jolene Emery RN March 27, 2024 6:46 PM Jolene Emery RN 03/29/2024 11:25 AM Signed [facility] Telephonic Outreach Provider Too/CAROLYN Patient will have a CT chest at [facility] on 04/04 Contacted for: Routine Telephonic Outreach [...] more often than normal? No Based on manufacturing weaver, the following disposition is advised: No symptoms [...] Date Reviewed: 03/12/2024 Reviewed by: Mimi Escobar APRN.SHIATSU THERAPIST - Fully Assessed Reason for Visit: CDM [...] Observed: 03/12/2024 2:37 PM Status: COMPLETED Source: [facility] HNO ID: [id number] Author: MIMI ESCOBAR APRN.CNP Service: ? Author Type: Clinical Nurse Specialist Type: Progress Notes Filed: 03/12/2024 14:38 Note Text: Agree with anticoag recommendations PROGRESS Observed: 03/12/2024 2:25 PM Status: COMPLETED Source: [facility] HNO ID: [id number] Author: ABRAHAM POSADAS, [place] Service: ? Author Type: Registered Nurse Type: Progress Notes Filed: 03/12/2024 14:38 Note Text: patient had inr completed at [facility] patients inr is 2.5 (patients inr range [...] / CODE REACTION SEVERITY SOURCE 12/13/2024 DRUG INGREDI/32156 1003(SNOMED CT) ATORVASTATIN OTHER: SEE C [facility] 07/27/2015 DRUG/35136257 3(SNOMED CT) PNEUMOC 13-CHU CONJ-DIP CR(PF) RASH [facility] 01/19/2011 DRUG INGREDI/73670 1003(SNOMED CT) ROSUVASTATIN CALCIUM OTHER: [facility] 12/08[facility]2008 DRUG INGREDI/63802 1003(SNOMED CT) LATEX RASH [facility] 12/04/2008 DRUG INGREDI/10789 1003(SNOMED CT) IBUPROFEN OTHER: SEE [facility] ENCOUNTERS ADMIT/DISCHARGE ACCOUNT NUMBER ADMITTING ENCOUNTER CLASS LOC ATION SOURCE 02/21/2025/ 5 [id number] [facility] 02/05/2025/ 5 [id number] [facility] 01/16/2025/ 5 [id number] [facility] 01/07/2025/ 5 [id number] Ambulatory [facility] 12/13/2024/ 5 [id number] Ambulatory [facility] 11/28/2024/ 5 [id number] Ambulatory [facility] 10/31/2024/ 5 [id number] [facility] 10/03/2024/ 5 [id number] [facility] 09/02/2024/ 5 [id number] Ambulatory [facility] 07/29/2024/ 5 [id number] Ambulatory [facility] 07/12/2024/ 5 [id number] Ambulatory [facility] 06/28/2024/ 5 [id number] Ambulatory [facility] 05/31/2024/ 4 [id number] Ambulatory [facility] 05/31/2024/ 4 [id number] [facility] 05/23/[facility]/ 4 [id number] [facility] 04/25/2024/ 4 [id number] Ambulatory [facility] 03/28/2024/ 4 [id number] Ambulatory [facility] 03/12/2024/ 4 [id number] [facility] PAYERS ENCOUNTER GUARANTOR PAYER SUBSCRIBER SOURCE 02/21/2025 Primary Insuran e:[facility] DUAL COMPLETE PPO SNPPolicy Number: [id number] Date:[id number] Name:Fara NIMISHA Owens CARISSAOB: [id number] [address] [place], [place] [address] [place] [address] 02/21/2025 Secondary Insurance:[employer] [facility] MEDICAIDPolicy Number: [id number] Date:8577-36-62Sboe Name:Erinn BARCLAYHA Graciela FERREROB: [id number] [address] [place], [place] [address] [place] [address] 02/05/2025 Primary Insuranc e:[facility] DUAL COMPLETE PPO SNPPolicy Number: [id number] Date:6086-62-77Tlgc Name:Fara BANKSHDOB: [id number] [address] [place] [address] [facility] 02/05/2025 Secondary Insurance:[facility] MEDICAIDPolicy Number: [id number] Date:0290-47-33Eghh Name:Erinn BANKSHDOB: [id number] [address] [place], [place] [address] [place] [address] 01/16/2025 Primary Insuranc e:[facility] [place] DUAL COMPLETE PPO SNPPolicy Number: [id number] Date:4844-21-95Vszh Name:Fara BANKSHDOB: [id number] [address] [place], [place] [address] [place] [address] 01/16/2025 Secondary Insurance:[facility] MEDICAIDPolicy Number: [id number] Date:9486-06-42Sudf Name:Erinn BANKSHDOB: [id number] [address] [place], [place] [address] [place] [address] 01/07/2025 Primary Insuranc e:[facility] DUAL COMPLETE PPO SNPPolicy Number: [id number] Date:1253-74-29Ritt Name:Fara Owens TISHDOB: [id number] [address] [place], [place] [address] [place] [address] 01/07/2025 Secondary Insurance:[facility] MEDICAIDPolicy Number: [id number] Date:4550-79-13Yxxu Name:Erinn BANKSHDOB: [id number] [address] [place], [place] [address] [place] [address] 12/13/2024 Primary Insuranc e:[facility] DUAL COMPLETE PPO SNPPolicy Number: [id number] Date:2422-91-07Sgbx Name:Fara Owens TISHDOB: [id number] [address] [place], [place] [address] [place] [address] 12/13/2024 Secondary Insurance:[facility] MEDICAIDPolicy Number: [id number] Date:6732-51-75Fsnr Name:Erinn Owens TISHDOB: [id number] [address] [place], [place] [address] [place] [address] 11/28/2024 Primary Insuranc e:[facility] DUAL COMPLETE PPO SNPPolicy Number: [id number] Date:2835-56-86Whik Name:Fara Owens TISHDOB: [id number] [address] [place], [place] [address] [place] [address] 11/28/2024 Secondary Insurance:[facility] MEDICAIDPolicy Number: [id number] Date:2649-50-64Uvcy Name:Erinn Owens TISHDOB: [id number] [address] [place], [place] [address] [place] [address] 10/31/2024 Primary Insuranc e:[facility] DUAL COMPLETE PPO SNPPolicy Number: [id number] Date:5497-05-93Ptdq Name:Fara Owens TISHDOB: [id number] [address] [place], [place] [address] [place] [address] 10/31/2024 Secondary Insurance:[facility] MEDICAIDPolicy Number: [id number] Date:3857-50-78Nfxk Name:Erinn Owens TISHDOB: [id number] [address] [place], [place] [address] [place] [address] 10/03/2024 Primary Insuranc e:[facility] DUAL COMPLETE PPO SNPPolicy Number: [id number] Date:4507-79-14Zimg Name:Fara Owens TISHDOB: [id number] [address] [place], [place] [address] [place] [address] 10/03/2024 Secondary Insurance:[facility] MEDICAIDPolicy Number: [id number] Date:7950-09-18Ieea Name:Erinn Owens TISHDOB: [id number] [address] [place], [place] [address] [place] [address] 09/02/2024 Primary Insuranc e:[facility] MEDICAIDPolicy Number: [id number] Date:2955-02-85Zvnf Name:Erinn Owens TISHDOB: [id number] [address] [place], [place] [address] [place] [address] 07/29/2024 Primary Insuranc e:[facility] MEDICAREPolicy Number: [id number] Date:4418-05-13Xdxt Name:Fara Owens TISHDOB: [id number] [address] [place], [place] [address] [place] [address] 07/29/2024 Secondary Insurance:[facility] MEDICAIDPolicy Number: [id number] Date:8086-81-43Pibn Name:Erinn Owens TISHDOB: [id number] [address] [place], [place] [address] [place] [address] 07/12/2024 Primary Insuranc e:[facility] MEDICAREPolicy Number: [id number] Date:0375-02-95Uxvn Name:Fara Owens TISHDOB: [id number] [address] [place], [place] [address] [place] [address] 07/12/2024 Secondary Insurance:[facility] MEDICAIDPolicy Number: [id number] Date:2660-95-91Hlpb Name:Erinn Owens TISHDOB: [id number] [address] [place], [place] [address] [place] [address] 06/28/2024 Primary Insuranc e:[facility] MEDICAREPolicy Number: [id number] Date:1107-94-98Stnk Name:Fara Owens TISHDOB: [id number] [address] [place] [address] [facility] 06/28/2024 Secondary Insurance:[facility] MEDICAIDPolicy Number: [id number] Date:2391-74-88Qtqh Name:Erinn Owens TISHDOB: [id number] [address] [place] [address] [facility] 05/31/2024 Primary Insuranc e:[facility] MEDICAREPolicy Number: [id number] Date:9490-43-45Ptku Name:Fara Owens TISHDOB: [id number] [address] [place], [place] [address] [place] [address] 05/31/2024 Secondary Insurance:[facility] MEDICAIDPolicy Number: [id number] Date:3478-14-30Whho Name:Erinn Owens TISHDOB: [id number] [address] [place], [place] [address] [place] [address] 05/31/2024 Primary Insuranc e:[facility] MEDICAREPolicy Number: [id number] Date:9820-64-02Dvwj Name:Fara Owens TISHDOB: [id number] [address] [place] [address] [facility] 05/31/2024 Secondary Insurance:[facility] MEDICAIDPolicy Number: [id number] Date:4646-00-04Stjh Name:Erinn Owens TISHDOB: [id number] [address] [place], [place] [address] [place] [address] 05/23/2024 Primary Insuranc e:[facility] MEDICAREPolicy Number: [id number] Date:5461-05-88Redy Name:Fara Owens TISHDOB: [id number] [address] [place], [place] [address] [place] [address] 05/23/2024 Secondary Insurance:[facility] MEDICAIDPolicy Number: [id number] Date:3180-45-64Peev Name:Erinn BANKSHDOB: 6721-77-33OCL388 [address] [place], [place] [address] [place] [address] 04/25/2024 Primary Insuranc e:[facility] MEDICAREPolicy Number: [id number] Date:7810-54-81Gwgi Name:Fara BANKSHDOB: 7315-42-51RZH342 [address] [place], [place] [address] [place] [address] 04/25/2024 Secondary Insurance:[facility] MEDICAIDPolicy Number: [id number] Date:0557-28-49Rcmy Name:Erinn BANKSHDOB: 1498-60-56VHN736 [address] [place], [place] [address] [place] [address] 03/28/2024 Primary Insuranc e:[facility] MEDICAREPolicy Number: [id number] Date:7175-10-85Nrbe Name:Fara BANKSHDOB: 5713-70-12AUI646 [address] [place], [place] [address] [place] [address] 03/28/2024 Secondary Insurance:[facility] MEDICAIDPolicy Number: [id number] Date:6929-90-58Tqsf Name:Erinn Owens TISHDOB: [id number] [address] [place], [place] [address] [place] [address] 03/12/2024 Primary Insuranc e:[facility] MEDICAREPolicy Number: [id number] Date:1491-83-58Qinz Name:Fara Owens TISHDOB: [id number] [address] [place], [place] [address] [place] [address] 03/12/2024 Secondary Insurance:[facility] MEDICAIDPolicy Number: [id number] Date:4506-23-93Lvgu Name:Erinn Owens TISHDOB: [id number] [address] [place] [address] [facility]
--- NOTE | 2025-03-04 14:10 | RAD_ITS ---
PROCEDURE: CHEST PA AND LATERAL 03/04/2025 REASON FOR EXAM: SOB TECHNIQUE: Procedure Code: RADCXR Modality: DX Procedure: CHEST PA AND LATERAL COMPARISON: Two-view chest, 01/22/2025. FINDINGS: There is cardiomegaly and aortic ectasia consistent with benign essential hypertension. There is pulmonary venous hypertension and pulmonary interstitial edema consistent with congestive heart failure. There are bilateral pleural effusions. There is calcific vascular disease of the thoracic aorta. The upper abdominal bowel gas pattern is normal. There is multilevel degenerative disc disease of the thoracic spine. RAD/Chest PA and Lateral IMPRESSION: 1. Congestive heart failure with bilateral pleural effusions. 2. Other findings as noted. Reading Location: [place] [address]
--- NOTE | 2025-03-04 14:10 | RAD_ITS ---
PROCEDURE: CHEST PA AND LATERAL 03/04/2025 REASON FOR EXAM: SOB TECHNIQUE: Procedure Code: RADCXR Modality: DX Procedure: CHEST PA AND LATERAL COMPARISON: Two-view chest, 01/22/2025. FINDINGS: There is cardiomegaly and aortic ectasia consistent with benign essential hypertension. There is pulmonary venous hypertension and pulmonary interstitial edema consistent with congestive heart failure. There are bilateral pleural effusions. There is calcific vascular disease of the thoracic aorta. The upper abdominal bowel gas pattern is normal. There is multilevel degenerative disc disease of the thoracic spine. RAD/Chest PA and Lateral IMPRESSION: 1. Congestive heart failure with bilateral pleural effusions. 2. Other findings as noted. Reading Location: [place] [address]
[2025-03-04 16:44] LABS: Anion Gap 10 (5-15); BUN 12 mg/dL (4-19); BUN/Creat Ratio 14.1 RATIO (10-20); Calcium,Total 8.8 mg/dL (7.6-11.0); Carbon Dioxide 26.2 mmol/L (21.0-32.0); Chloride 99 mmol/L (98-108); Glucose 98 mg/dL (70-99); Potassium 3.9 mmol/L (3.3-5.1); Pro- Brain NATRIURETIC PEPTIDE 2021 pg/mL (<=1800)
== END | disposition home or self-care (01) ==
PROVIDERS: PCP Family Medicine; Referring Provider Student in an Organized Health Care Education/Training Program; Visit Provider Student in an Organized Health Care Education/Training Program
DX: R06.02 Shortness of breath (principal); I50.9 Heart failure, unspecified
CPT/HCPCS: 36415; 71046; 80048; 83880

== ENCOUNTER → 2025-03-27 | Outpatient (CLI) | payer MEDICARE, MEDICAID, SELFPAY ==
[2025-03-27 14:40] LABS: Anion Gap 10 (5-15); BUN 17 mg/dL (4-19); BUN/Creat Ratio 18.8 RATIO (10-20); Calcium,Total 8.8 mg/dL (7.6-11.0); Carbon Dioxide 28.3 mmol/L (21.0-32.0); Chloride 99 mmol/L (98-108); Glucose 125 mg/dL (70-99); Potassium 4.1 mmol/L (3.3-5.1)
== END | disposition home or self-care (01) ==
PROVIDERS: PCP Family Medicine; Referring Provider Student in an Organized Health Care Education/Training Program; Visit Provider Student in an Organized Health Care Education/Training Program
DX: I50.9 Heart failure, unspecified (principal); I48.91 Unspecified atrial fibrillation
CPT/HCPCS: 36415; 80048; 93225; 93226

== ENCOUNTER 2025-04-06 11:22 | Inpatient (IN) | payer MEDICARE, MEDICAID, SELFPAY ==
[2025-04-06] VITALS (27 sets, daily range): BP systolic 91–143; BP diastolic 45–99; PULSE 96–139; RESP 18–29; TEMP 36.6–36.9; O2SAT 88–96; BMI 24.8; BMI 22.6
--- NOTE | 2025-04-06 11:30 | EKG12_ITS ---
Test Reason : SOB
[2025-04-06 12:59] LABS: Hematocrit 39.0 % (37-47); Hemoglobin 12.9 g/dL (12.0-15.0); Immature Granulocytes Count 0.060 X10^3/uL (0.0-0.0); Mean Corp Hgb Conc 33.1 g/dL (32-36); Mean Corpuscular Volume 87.2 fL (81-99); Mean Platelet Vol. 9.6 fl (6.2-12.0); NRBC Flagged by Analyzer 0 % (0-5); Platelet Count 319 K/mm3 (150-450); RBC Distribution Width CV 15.7 % (11.6-14.6); RBC Distribution Width SD 50.1 fl (35.1-43.9); Red Blood Count 4.47 M/mm3 (4.2-5.4); White Blood Count 10.2 K/mm3 (4.4-11.0)
[2025-04-06 13:32] LABS: AST(SGOT) 106 U/L (<=31); Alanine Aminotransfer ALT/SGPT 86 U/L (<=34); Albumin, Serum 3.9 g/dL (3.4-4.8); Alkaline Phosphatase 196 U/L (35-104); Anion Gap 11 (5-15); BUN 13 mg/dL (4-19); BUN/Creat Ratio 16.6 RATIO (10-20); Calcium,Total 8.8 mg/dL (7.6-11.0); Carbon Dioxide 22.1 mmol/L (21.0-32.0); Chloride 102 mmol/L (98-108); Estimated Creatinine Clearance 45.39 ml/min (50-250); Globulin 2.6 g/dL (2.2-4.2); Glucose 109 mg/dL (70-99); Lipase 30 U/L (13-75); Magnesium 2.1 mg/dL (1.5-2.2); Potassium 4.2 mmol/L (3.3-5.1); Pro- Brain NATRIURETIC PEPTIDE 5089 pg/mL (<=1800); Troponin T High Sensitivity 9 ng/L (<=14)
--- NOTE | 2025-04-06 14:00 | CT_ITS ---
PROCEDURE: CT/Abdomen/Pelvis W IV Cont ONLY
--- NOTE | 2025-04-06 14:00 | CT_ITS ---
PROCEDURE: CT/CTA Chest W/WO Contrast
[2025-04-06 14:33] LABS: Mucous, Urine 0 SEEN /hpf (<or=2+); Red Blood Cells-Urine 0 SEEN /hpf (0-5)
[2025-04-06 14:34] LABS: Color, Urine Yellow (Yellow); Glucose, Dipstick Normal (Normal); Ketone-Dipstick Negative (Negative); Leukocyte Esterase-Dipstick Negative /ul (Negative); Nitrite-Dipstick Negative (Negative); Occult Blood-Urine Negative /ul (Negative); Protein-Dipstick 30 mg/dl (Negative); Specific Gravity, Urine 1.010 (1.002-1.030); Urine Bilirubin Dipstick Negative (Negative)
[2025-04-06 14:45] LABS: Squamous Epithelial Cells - UA 0-5 SEEN /hpf (5-10)
[2025-04-06 14:45] LABS: Troponin T High Sens 2 HR 7 ng/L (<=14)
[2025-04-06 16:42] LABS: Troponin T High Sens 4 HR 8 ng/L (<=14)
--- NOTE | 2025-04-06 16:51 | PCM.HP.STD ---
[facility] - General General Date of Admission: 04/06/25 Date of Service: 04/06/25 Chief Complaint: Shortness of breath, abdominal pain for 2 days. HPI Narrative NIMISHA CEJA, is a 79 F came to ED for shortness of breath, abdominal distention/abdominal swelling ongoing for last 1 month. She was taking furosemide 40 mg twice daily but was decreased to once daily and spironolactone was added. She has mild leg swelling. Denies any chest pain/pressure but feels palpitation. No fever or URI symptoms. Denies abdominal pain. In ED, she was found to have A-fib RVR with heart rate 123, mild tachypnea but no hypoxia. Blood pressure in normal range. She was given 3 doses of metoprolol 5 mg IV but is still heart rate in 120s. She was also given Lasix 40 mL IV 1 dose. Labs imaging and vitals reviewed discussion assessment and plan. Patient was further admitted. [facility] Medical History (Updated 04/06/25 @ 17:[address] 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 Paroxysmal atrial fibrillation Essential hypertension Mixed hyperlipidemia Chronic atrial fibrillation with RVR Exudative pleural effusion Renal cyst Hepatic congestion Recurrent pleural effusion Leukocytosis Embolic infarction Renal infarction Splenic infarction Substance abuse Goiter Non-smoker Atrial fibrillation Congestive heart failure (CHF) Hypertension Rheumatoid arthritis COPD (chronic obstructive pulmonary disease) Pleural effusion Rheumatoid arthritis Paroxysmal atrial fibrillation with RVR Subtherapeutic international normalized ratio (INR) Chronic anticoagulation Pulmonary hypertension Hypokalemia Hyponatremia PNA (pneumonia) COPD (chronic obstructive pulmonary disease) PAF (paroxysmal atrial fibrillation) HTN (hypertension) GERD (gastroesophageal reflux disease) HLD (hyperlipidemia) Marfans syndrome Home Medications ?Medication ?Instructions ?Recorded ?Last Taken ?Type calcium carbonate 600 mg PO DAILY SUPPLEMENT 06/19/19 07/12/21 History multivitamin 1 tab PO DAILY SUPPLEMENT 06/19/19 07/12/21 History albuterol sulfate 90 mcg/actuation 2 puff inhalation Q4H PRN SOB 01/09/20 1 Week Ago History aerosol inhaler ~06/30/21 omeprazole 20 mg capsule,delayed 20 mg PO BID 12/05/24 Unknown History release fluticasone propionate 50 1 - 2 spray intranasal DAILY PRN 01/22/25 Unknown History mcg/actuation nasal health maintnance spray,suspension warfarin 2 mg tablet 2 mg PO SUMOWEFR 01/22/25 Unknown History amiodarone 200 mg tablet 100 mg (1/2 x 200 mg) PO DAILY #45 02/24/25 Unknown Rx tabs metoprolol tartrate 50 mg tablet 50 mg PO BID #180 tabs 03/04/25 Unknown Rx spironolactone 25 mg tablet 25 mg PO QDAY #30 tabs 03/04/25 Unknown Rx furosemide 40 mg tablet (Lasix) 40 mg PO QAM 04/06/25 Unknown History gabapentin 100 mg capsule 100 mg PO BID PRN nerve pain 04/06/25 Unknown History warfarin 3 mg tablet 3 mg PO TUTHSA 04/06/25 Unknown History Allergy/AdvReac Type Severity Reaction Status Date / Time pneumococcal vaccine (From Allergy Severe Rash Verified 04/06/25 11:23 Prevnar 13 (PF)) Latex, Natural Rubber Allergy Rash Verified 04/06/25 11:23 rosuvastatin calcium (From Allergy myalgias Verified 04/06/25 11:23 Crestor) ibuprofen AdvReac Nausea Verified 04/06/25 11:23 Family History Mother Diabetes Colon cancer Marfan syndrome Sister Diabetes Hypertension Brother Marfan syndrome COPD (chronic obstructive pulmonary disease) Brother Marfan syndrome Father Gastric ulcer GERD (gastroesophageal reflux disease) Surgical History History of eye surgery History of hysterectomy Social History household members: spouse and children housing: house Smoking Status: Never smoker alcohol intake: never substance use type: does not use caffeine: Yes Type: coffee Number of servings: 4 ROS ROS Narrative Constitutional: Reports fatigue and weakness. No fever. HEENT: Reports systems reviewed and no addt'l complaints, except as documented Respiratory/Chest: As described in HPI CVS: As described in HPI. Chronic heart failure/A-fib. He states she has mild aortic dilatation as chronic diagnosis Gastrointestinal: Denies coffee ground emesis, hematemesis or vomiting. Rest as described in HPI Genitourinary: Denies burning urination or new urinary tract symptoms Musculoskeletal: Dilated varicose veins. Denies acute joint pain or limited range of motion. No acute injury Neurologic: Denies seizure-like symptoms. skin: No ulcer. No rash Endocrinology: Reports systems reviewed and no addt'l complaints, except as documented Hematologic/Lymphatic: Reports systems reviewed and no addt'l complaints, except as documented Rest 14 ROS are negative except as mentioned in HPI Vital Signs Vital Signs Vital Signs: 04/06/25 11:23 04/06/25 11:26 04/06/25 12:18 Temperature 98.4 F Temperature Source Oral Pulse Rate 123 H 126 H Respiratory Rate 27 H 25 H Respiratory Effort Normal Non-Labored Respiratory Depth Normal Respiratory Pattern Tachypnea Blood Pressure 143/84 H Blood Pressure Mean 103 Pulse Ox 96 93 Oxygen Delivery Method Room Air Room Air 04/06/25 12:30 04/06/25 12:45 04/06/25 13:00 Temperature Temperature Source Pulse Rate 126 H 119 H Respiratory Rate 23 H 26 H Respiratory Effort Respiratory Depth Respiratory Pattern Blood Pressure 125/77 H 118/88 H 128/86 H Blood Pressure Mean 91 99 100 Pulse Ox 92 94 Oxygen Delivery Method 04/06/25 13:15 04/06/25 13:30 04/06/25 15:00 Temperature Temperature Source Pulse Rate 126 H 119 H 119 H Respiratory Rate 24 H 22 H 20 H Respiratory Effort Respiratory Depth Respiratory Pattern Blood Pressure 140/97 H 138/89 H 135/99 H Blood Pressure Mean 112 102 108 Pulse Ox 95 92 92 Oxygen Delivery Method 04/06/25 16:26 Temperature 98.4 F Temperature Source Pulse Rate 109 H Respiratory Rate 27 H Respiratory Effort Respiratory Depth Respiratory Pattern Blood Pressure 128/78 H Blood Pressure Mean 94 Pulse Ox 92 Oxygen Delivery Method Weight Weight: 127 lb 6.835 oz Body Mass Index (BMI) 24.8 Physical Exam Narrative General: Alert, Oriented x3, Cooperative. BMI 24.9 kg/m? HEENT: Atraumatic, PERRLA, EOMI, Normocephalic. Oral: Oral mucosa dry. No Gingival or Mucosal Lesions/ Ulcerations Neck: Supple, No JVD, Negative Carotid Bruits Chest wall/Lungs: Air entry diminished in bilateral lung bases. Bilateral coarse crepitations Cardiovascular: A-fib RVR, systolic murmur. Abdomen: Abdominal distention/shifting dullness, ascites. No acute tenderness. Bowel Sounds sluggish, abdomen soft. Umbilicus everted : No dysuria. No renal angle tenderness. No suprapubic tenderness. Extremities: Mild leg swelling, varicose veins. Capillary Refill Less than 3 Seconds Skin: No rashes, No breakdown Musculoskeletal: No Tenderness to Palpation of Joints or Extremities. Decreased muscle mass of extremities. Neurological: Cranial nerves II-XII grossly intact, DTR 2+/4. No acute focal neurological deficit. Psych/Mental Status: Flat affect. Results Lab / Micro Data 04/06/25 11:10 04/06/25 11:10 Labs: Laboratory Results - last 24 hr 04/06/25 11:10: WBC 10.2, RBC 4.47, Hgb 12.9, Hct 39.0, MCV 87.2, MCH 28.9, MCHC 33.1, RDW Std Deviation 50.1 H, RDW Coeff of Angelo 15.7 H, Plt Count 319, MPV 9.6, Immature Gran % (Auto) 0.600, Neut % (Auto) 77.0 H, Lymph % (Auto) 11.9 L, [place] % (Auto) 10.0, Eos % (Auto) 0.1, Baso % (Auto) 0.4, Absolute Neuts (auto) 7.9 H, Absolute Lymphs (auto) 1.22, Nucleated RBC % 0, Sodium 135, Potassium 4.2, Chloride 102, Carbon Dioxide 22.1, Anion Gap 11, BUN 13, Creatinine 0.78, Estim Creat Clear Calc 45.39 L, Est GFR (MDRD) Non-Af 77, BUN/Creatinine Ratio 16.6, Glucose 109 H, Calcium 8.8, Magnesium 2.1, Total Bilirubin 1.30, AST 106 H, ALT 86 H, Alkaline Phosphatase 196 H, Troponin T High Sens 9, NT pro BNP II 5089 H, Total Protein 6.5, Albumin 3.9, Globulin 2.6, Albumin/Globulin Ratio 1.5, Lipase 30, TSH 0.970 04/06/25 14:15: Troponin T Hi Sens 2 Hr 7 04/06/25 14:25: Urine Color Yellow, Urine Clarity Clear, Urine pH 6.5, Ur Specific Larue 1.010, Urine Protein 30 H, Urine Glucose (UA) Normal, Urine Ketones Negative, Urine Occult Blood Negative, Urine Nitrite Negative, Urine Bilirubin Negative, Urine Urobilinogen 1 H, Ur Leukocyte Esterase Negative, Urine RBC 0 SEEN, Urine WBC 0 SEEN, Ur Squamous Epith Cells 0-5 SEEN, Urine Bacteria 0 SEEN, Urine Mucus 0 SEEN 04/06/25 16:15: Troponin T Hi Sens 4Hr 8 Imaging Radiology Impression Abdomen/Pelvis CT 04/06/25 14:00 IMPRESSION: 1. Amorphous areas of diffuse arterial hyperenhancement throughout the right hepatic lobe, resolving on portal venous phase, likely variant perfusion. However, MRI liver mass protocol is recommended in the outpatient setting. Hepatomegaly. 2. Small amount of gas in the gallbladder, nonspecific. Cholelithiasis. 3. Trace ascites in the abdomen/pelvis. 4. Moderate stool in the ascending and transverse colon suggesting constipation. [facility] Chest CTA 04/06/25 14:00 IMPRESSION: 1. No pulmonary embolus. 2. Dilated aortic root, 4.3 cm. No thoracic aortic aneurysm or dissection otherwise. 3. Small amount of loculated pleural fluid throughout on the right, without pleural mass or obvious findings of malignancy. Trace left pleural effusion. Reading Location[facility] [place] Assessment & Plan Assessment/Plan (1) Atrial fibrillation with RVR: (2) Congestive heart failure (CHF): QUALIFIERS: Heart failure type: unspecified Heart failure chronicity: unspecified Qualified Code(s): I50.9 - Heart failure, unspecified PLAN: Plan This is a 79-year-old female being admitted for shortness of breath, abdominal distention. 1. Acute on chronic HFpEF with severe pulmonary hypertension and moderately severe TR: Patient is being admitted in PCU as stepdown unit. Furosemide 40 mL IV twice daily. Heart failure core measures including intake and output, fluid restriction less than 1500 mL, daily weight monitoring, kidney and electrolytes monitoring. Fluid restriction 1800 mL. Chest x-ray and CT chest and abdomen individually reviewed. Chest x-ray shows bilateral pleural effusion with pulmonary congestion and cardiomegaly and aortic ectasia. 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 Trace left pleural effusion and small nonloculated pleural effusion on the right with a pleural mass. She states she has history of Marfan syndrome and has features of pectus excavated but does not have long thin limbs or fingers. proBNP high 2. A-fib RVR with history of chronic A-fib: Patient on metoprolol 50 mg twice daily and amiodarone 100 mg daily at home. Had metoprolol 5 mg IV x 3 doses and Cardizem 50 mg IV bolus. If heart rate is still high we will need Cardizem tomorrow IV bolus and then amiodarone drip after amiodarone 150 mg IV bolus. Otherwise if heart rate controlled then increase oral amiodarone to 200 mg 3 times daily and taper down. Account Liaison consulted for further recommendation. Electrolytes in normal range. First 2 troponins are normal. TSH normal. 3. Abdominal distention with elevated transaminases and alkaline phosphatase: CT abdomen shows diffuse arterial hyperenhancement throughout right hepatic lobe resolving on portal venous phase probably variant perfusion. Liver in largest craniocaudal diameter 22 cm. Cholelithiasis and reported trace ascites. Moderate stool in ascending and transverse colon suggesting constipation. Laxative regimen ordered. On exam it seems more abdominal distention and ascites therefore ultrasound with paracentesis ordered for tomorrow. Acetic fluid analysis also ordered. Monitor liver function. She might have liver congestion from CHF 3. Hypertension: On Lopressor and amiodarone. Blood pressure is in normal range. 4. GERD on PPI 5. Due to prophylaxis on warfarin. PT/INR ordered. Hold warfarin if INR more than 2.5. Living will/advanced directive/end of life care: Patient does not have living will or advanced directive. Her daughter is next of kin but she does not continue to power of finance attorney for healthcare after discussion of benefits/risks procedures involved with full code, DNR CC arrest and DNR CC, the patient opted for full code. Patient does want artificial life support including intubation, tube feed, ventilator and/chest compression, central venous catheter, vasopressor and DC shock if needed Total time spent in [id number] encounter in discussion of advanced directive 17 minutes. Laboratory Results 04/06/25 11:10: WBC 10.2, RBC 4.47, Hgb 12.9, Hct 39.0, MCV 87.2, MCH 28.9, MCHC 33.1, RDW Std Deviation 50.1 H, RDW Coeff of Angelo 15.7 H, Plt Count 319, MPV 9.6, Immature Gran % (Auto) 0.600, Neut % (Auto) 77.0 H, Lymph % (Auto) 11.9 L, [place] % (Auto) 10.0, Eos % (Auto) 0.1, Baso % (Auto) 0.4, Absolute Neuts (auto) 7.9 H, Absolute Lymphs (auto) 1.22, Nucleated RBC % 0, PT 26.8 H, INR 2.4, Sodium 135, Potassium 4.2, Chloride 102, Carbon Dioxide 22.1, Anion Gap 11, BUN 13, Creatinine 0.78, Estim Creat Clear Calc 45.39 L, Est GFR (MDRD) Non-Af 77, BUN/Creatinine Ratio 16.6, Glucose 109 H, Calcium 8.8, Magnesium 2.1, Total Bilirubin 1.30, AST 106 H, ALT 86 H, Alkaline Phosphatase 196 H, Troponin T High Sens 9, NT pro [place]NP II 5089 H, Total Protein 6.5, Albumin 3.9, Globulin 2.6, Albumin/Globulin Ratio 1.5, Lipase 30, TSH 0.970 04/06/25 14:15: Troponin T Hi Sens 2 Hr 7 04/06/25 14:25: Urine Color Yellow, Urine Clarity Clear, Urine pH 6.5, Ur Specific Larue 1.010, Urine Protein 30 H, Urine Glucose (UA) Normal, Urine Ketones Negative, Urine Occult Blood Negative, Urine Nitrite Negative, Urine Bilirubin Negative, Urine Urobilinogen 1 H, Ur Leukocyte Esterase Negative, Urine RBC 0 SEEN, Urine WBC 0 SEEN, Ur Squamous Epith Cells 0-5 SEEN, Urine Bacteria 0 SEEN, Urine Mucus 0 SEEN 04/06/25 16:15: Troponin T Hi Sens 4Hr 8 Echo December 2023 Interpretation Summary Normal LV size. Left ventricular systolic function is normal. The left ventricular ejection fraction is 60 %. Mild-Moderate (1-2+) anteriorly directed mitral valve insufficiency. Pulmonary artery systolic pressure is 80 mmHg. Severe pulmonary hypertension. Clinical Impression(s) from Imaging Studies Abdomen/Pelvis CT 04/06/25 14:00 IMPRESSION: 1. Amorphous areas of diffuse arterial hyperenhancement throughout the right hepatic lobe, resolving on portal venous phase, likely variant perfusion. However, MRI liver mass protocol is recommended in the outpatient setting. Hepatomegaly. 2. Small amount of gas in the gallbladder, nonspecific. Cholelithiasis. 3. Trace ascites in the abdomen/pelvis. 4. Moderate stool in the ascending and transverse colon suggesting constipation. Chest CTA 04/06/25 14:00 IMPRESSION: 1. No pulmonary embolus. 2. Dilated aortic root, 4.3 cm. No thoracic aortic aneurysm or dissection otherwise. 3. Small amount of loculated pleural fluid throughout on the right, without pleural mass or obvious findings of malignancy. Trace left pleural effusion. Reading Location: [facility] Charges/Coding Visit Charges Inpatient E&M: 26667 Init Hosp L3 Procedures Hospitalists Procedures: 17040 Advncd Care Plan 30 Min
--- NOTE | 2025-04-06 16:52 | ED.VIS.DYS ---
HPI History of Present Illness Chief Complaint: Shortness of Breath Narrative Narrative: Patient is a 79-year-old female presenting to the emergency department for dyspnea, abdominal distention and reports of feeling swollen. She states that 1 month ago she was taking off of twice daily lasix and switched to once daily and spirolactone was added on. She states she is been compliant with her medications. She states since then she has developed the shortness of breath and abdominal distention. She is a very poor historian. Patient has a past medical history of mitral valve insufficiency, anemia electrolyte abnormalities, pleural effusion, paroxysmal A-fib, CHF and hypertension. She is on amiodarone and warfarin. Patient denies fever, chills, chest pain, palpitations, abdominal pain, nausea, vomiting, diarrhea, dysuria or hematuria. She denies back pain to me, it was noted in triage note but denies on multiple occasions to me. 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 Paroxysmal atrial fibrillation Essential hypertension Mixed hyperlipidemia Chronic atrial fibrillation with RVR Exudative pleural effusion Renal cyst Hepatic congestion Recurrent pleural effusion Leukocytosis Embolic infarction Renal infarction Splenic infarction Substance abuse Goiter Non-smoker Atrial fibrillation Congestive heart failure (CHF) Hypertension Rheumatoid arthritis COPD (chronic obstructive pulmonary disease) Pleural effusion Rheumatoid arthritis Paroxysmal atrial fibrillation with RVR Subtherapeutic international normalized ratio (INR) Chronic anticoagulation Pulmonary hypertension Hypokalemia Hyponatremia PNA (pneumonia) COPD (chronic obstructive pulmonary disease) PAF (paroxysmal atrial fibrillation) HTN (hypertension) GERD (gastroesophageal reflux disease) HLD (hyperlipidemia) Marfans syndrome Home Medications ?Medication ?Instructions ?Recorded ?Last Taken ?Type calcium carbonate 600 mg PO DAILY SUPPLEMENT 06/19/19 07/12/21 History multivitamin 1 tab PO DAILY SUPPLEMENT 06/19/19 07/12/21 History albuterol sulfate 90 mcg/actuation 2 puff inhalation Q4H PRN SOB 01/09/20 1 Week Ago History aerosol inhaler ~06/30/21 omeprazole 20 mg capsule,delayed 20 mg PO BID 12/05/24 Unknown History release fluticasone propionate 50 1 - 2 spray intranasal DAILY PRN 01/22/25 Unknown History mcg/actuation nasal health maintnance spray,suspension warfarin 2 mg tablet 2 mg PO SUMOWEFR 01/22/25 Unknown History amiodarone 200 mg tablet 100 mg (1/2 x 200 mg) PO DAILY #45 02/24/25 Unknown Rx tabs metoprolol tartrate 50 mg tablet 50 mg PO BID #180 tabs 03/04/25 Unknown Rx spironolactone 25 mg tablet 25 mg PO QDAY #30 tabs 03/04/25 Unknown Rx furosemide 40 mg tablet (Lasix) 40 mg PO QAM 04/06/25 Unknown History gabapentin 100 mg capsule 100 mg PO BID PRN nerve pain 04/06/25 Unknown History warfarin 3 mg tablet 3 mg PO TUTHSA 04/06/25 Unknown History Allergy/AdvReac Type Severity Reaction Status Date / Time pneumococcal vaccine (From Allergy Severe Rash Verified 04/06/25 11:23 Prevnar 13 (PF)) Latex, Natural Rubber Allergy Rash Verified 04/06/25 11:23 rosuvastatin calcium (From Allergy myalgias Verified 04/06/25 11:23 Crestor) ibuprofen AdvReac Nausea Verified 04/06/25 11:23 Family History Mother Diabetes Colon cancer Marfan syndrome Sister Diabetes Hypertension Brother Marfan syndrome COPD (chronic obstructive pulmonary disease) Brother Marfan syndrome Father Gastric ulcer GERD (gastroesophageal reflux disease) Surgical History History of eye surgery History of hysterectomy Social History household members: spouse and children housing: house Smoking Status: Never smoker alcohol intake: never substance use type: does not use caffeine: Yes Type: coffee Number of servings: 4 ROS ROS ED ROS Narrative see HPI EXAM Physical Exam Narrative Exam Narrative: Vital signs: Reviewed General: Alert and orientedx3. No acute distress. Chronically ill appearing. HEENT: Head is normocephalic and atraumatic, sinuses nontender, pupils equal round and reactive. Nares are patent. Oropharynx and throat exams normal. Neck: Supple without lymphadenopathy nontender Cardiovascular: Irregularly irregular rate and rhythm, no murmurs. No rubs or gallops. Normal S1 and S2 Respiratory: Decreased lung sounds in bilateral lung bases. Otherwise clear to auscultation bilaterally in the upper lobes with no wheezing. Abdominal: Soft and protuberant. Nontender to palpation. Normal bowel sounds. No guarding or rebound. Nonsurgical abdomen Extremities: No lower extremity edema noted. No tenderness. No bruising. Normal range of motion. Normal sensation. Skin: No rash or redness. Neurological: Cranial nerves II through XII are grossly intact. Normal strength and sensation. Normal cerebellar function The rest of the physical exam is unremarkable Const Vital Signs: 04/06/25 11:23 04/06/25 11:26 04/06/25 12:18 Temperature 98.4 F Temperature Source Oral Pulse Rate 123 H 126 H Respiratory Rate 27 H 25 H Respiratory Effort Normal Non-Labored Respiratory Depth Normal Respiratory Pattern Tachypnea Blood Pressure 143/84 H Blood Pressure Mean 103 Pulse Ox 96 93 Oxygen Delivery Method Room Air Room Air 04/06/25 12:30 04/06/25 12:45 04/06/25 13:00 Temperature Temperature Source Pulse Rate 126 H 119 H Respiratory Rate 23 H 26 H Respiratory Effort Respiratory Depth Respiratory Pattern Blood Pressure 125/77 H 118/88 H 128/86 H Blood Pressure Mean 91 99 100 Pulse Ox 92 94 Oxygen Delivery Method 04/06/25 13:15 04/06/25 13:30 04/06/25 15:00 Temperature Temperature Source Pulse Rate 126 H 119 H 119 H Respiratory Rate 24 H 22 H 20 H Respiratory Effort Respiratory Depth Respiratory Pattern Blood Pressure 140/97 H 138/89 H 135/99 H Blood Pressure Mean 112 102 108 Pulse Ox 95 92 92 Oxygen Delivery Method 04/06/25 16:26 Temperature 98.4 F Temperature Source Pulse Rate 109 H Respiratory Rate 27 H Respiratory Effort Respiratory Depth Respiratory Pattern Blood Pressure 128/78 H Blood Pressure Mean 94 Pulse Ox 92 Oxygen Delivery Method MDM MDM MDM Narrative Medical decision making narrative: Patient is a 79-year-old female presenting to the emergency department for dyspnea, abdominal distention and feeling swollen over the past month. Patient was seen and examined. Vitals are stable. She does appear to be in A-fib with RVR on the monitor at a rate in the 120s. BP is stable. She is mildly tachypneic. Saturating 96% on room air. She is afebrile. Differential includes but is not limited to: CHF exacerbation, pleural effusions, pneumonia, PE, ACS, ascites CBC with no leukocytosis and normal hemoglobin. CMP with mildly elevated liver enzymes however they have noted to be previously elevated on problem list. No signficant elevation. TSH and magnesium are within normal limits. Troponin and two reflexes are not elevated and no significant delta change. BNP is elevated at 5089 which is slightly worse than past on chart review. Urinalysis with no evidence of infection. CTA of the chest shows no pulmonary embolism. Dilated aortic root, 4.3 cm. No thoracic aortic aneurysm or dissection otherwise. Small amount of loculated pleural fluid throughout on the right, without pleural mass or obvious findings of malignancy. Trace left pleural effusion. CT abdomen shows amorphous areas of diffuse arterial hyperenhancement throughout the right hepatic lobe, resolving on portal venous phase, likely variant perfusion. However, MRI liver mass protocol is recommended in the outpatient setting. Hepatomegaly. Small amount of gas in the gallbladder, nonspecific. Cholelithiasis. Trace ascites in the abdomen/pelvis. Moderate stool in the ascending and transverse colon suggesting constipation. Given the lab and imaging findings, I think it is likely fluid overload from her CHF and recent medication changes that is causing her symptoms. She was given 40 mg of IV Lasix here. She was also given Lopressor IV to rate control her A-fib. Discussed the findings with patient. Recommended admission given she ambulated and was feeling very dyspneic and dropped down to 88% on room air. She does not wear oxygen at home. Patient admitted to Dr. Polanco for further management. Clinical impression CHF exacerbation Ascites A-fib with RVR History & Record Review Discussion w/independent historian: Patient Lab Data Attestation: I reviewed the patient's lab results. Labs: Laboratory Results - last 24 hr 04/06/25 04/06/25 04/06/25 11:10 14:15 14:25 WBC 10.2 RBC 4.47 Hgb 12.9 Hct 39.0 MCV 87.2 MCH 28.9 MCHC 33.1 RDW Std Deviation 50.1 H RDW Coeff of Angelo 15.7 H Plt Count 319 MPV 9.6 Immature Gran % (Auto) 0.600 Neut % (Auto) 77.0 H Lymph % (Auto) 11.9 L [place] % (Auto) 10.0 Eos % (Auto) 0.1 Baso % (Auto) 0.4 Absolute Neuts (auto) 7.9 H Absolute Lymphs (auto) 1.22 Nucleated RBC % 0 Sodium 135 Potassium 4.2 Chloride 102 Carbon Dioxide 22.1 Anion Gap 11 BUN 13 Creatinine 0.78 Estim Creat Clear Calc 45.39 L Est GFR (MDRD) Non-Af 77 BUN/Creatinine Ratio 16.6 Glucose 109 H Calcium 8.8 Magnesium 2.1 Total Bilirubin 1.30 AST 106 H ALT 86 H Alkaline Phosphatase 196 H Troponin T High Sens 9 Troponin T Hi Sens 2 Hr 7 Troponin T Hi Sens 4Hr NT pro BNP II 5089 H Total Protein 6.5 Albumin 3.9 Globulin 2.6 Albumin/Globulin Ratio 1.5 Lipase 30 TSH 0.970 Urine Color Yellow Urine Clarity Clear Urine pH 6.5 Ur Specific [place] 1.010 Urine Protein 30 H Urine Glucose (UA) Normal Urine Ketones Negative Urine Occult Blood Negative Urine Nitrite Negative Urine Bilirubin Negative Urine Urobilinogen 1 H Ur Leukocyte Esterase Negative Urine RBC 0 SEEN Urine WBC 0 SEEN Ur Squamous Epith Cells 0-5 SEEN Urine Bacteria 0 SEEN Urine Mucus 0 SEEN 04/06/25 16:15 WBC RBC Hgb Hct MCV MCH MCHC RDW Std Deviation RDW Coeff of Angelo Plt Count MPV Immature Gran % (Auto) Neut % (Auto) Lymph % (Auto) [place] % (Auto) Eos % (Auto) Baso % (Auto) Absolute Neuts (auto) Absolute Lymphs (auto) Nucleated RBC % Sodium Potassium Chloride Carbon Dioxide Anion Gap BUN Creatinine Estim Creat Clear Calc Est GFR (MDRD) Non-Af BUN/Creatinine Ratio Glucose Calcium Magnesium Total Bilirubin AST ALT Alkaline Phosphatase Troponin T High Sens Troponin T Hi Sens 2 Hr Troponin T Hi Sens 4Hr 8 NT pro BNP II Total Protein Albumin Globulin Albumin/Globulin Ratio Lipase TSH Urine Color Urine Clarity Urine pH Ur Specific [place] Urine Protein Urine Glucose (UA) Urine Ketones Urine Occult Blood Urine Nitrite Urine Bilirubin Urine Urobilinogen Ur Leukocyte Esterase Urine RBC Urine WBC Ur Squamous Epith Cells Urine Bacteria Urine Mucus Radiography Diagnostic Testing: Clinical Impression(s) from Imaging Studies Abdomen/Pelvis CT 04/06/25 14:00 IMPRESSION: 1. Amorphous areas of diffuse arterial hyperenhancement throughout the right hepatic lobe, resolving on portal venous phase, likely variant perfusion. However, MRI liver mass protocol is recommended in the outpatient setting. Hepatomegaly. 2. Small amount of gas in the gallbladder, nonspecific. Cholelithiasis. 3. Trace ascites in the abdomen/pelvis. 4. Moderate stool in the ascending and transverse colon suggesting constipation. Reading Location: [facility] Chest CTA 04/06/25 14:00 IMPRESSION: 1. No pulmonary embolus. 2. Dilated aortic root, 4.3 cm. No thoracic aortic aneurysm or dissection otherwise. 3. Small amount of loculated pleural fluid throughout on the right, without pleural mass or obvious findings of malignancy. Trace left pleural effusion. Reading Location: [facility] Discharge Plan Triage Chief Complaint: Shortness of Breath ED Provider: Rehana Joseph Dx/Rx/DC Orders Prescriptions: No Action multivitamin Tablet 1 tab PO DAILY calcium carbonate 600 mg calcium (1,500 mg) tablet 600 mg PO DAILY albuterol sulfate 90 mcg/actuation HFA aerosol inhaler 2 puff INHALATION Q4H PRN (Reason: SOB) omeprazole 20 mg capsule,delayed release(DR/EC) 20 mg PO BID metoprolol tartrate 50 mg tablet 50 mg PO BID Qty: 180 3RF spironolactone 25 mg tablet 25 mg PO QDAY Qty: 30 2RF furosemide [Lasix] 40 mg tablet 40 mg PO QAM warfarin 3 mg tablet 3 mg PO TUTHSA gabapentin 100 mg capsule 100 mg PO BID PRN (Reason: nerve pain) warfarin 2 mg tablet 2 mg PO SUMOWEFR fluticasone propionate 50 mcg/actuation spray,suspension 1 - 2 spray INTRANASAL DAILY PRN (Reason: health maintnance) amiodarone 200 mg tablet 100 mg PO DAILY Qty: 45 3RF Primary Care Provider: Wes Magallon Referrals: Wes Magaloln MD [Primary Care Provider, Medical] Print Language: Sri Lankan
[2025-04-06 17:14] LABS: Prothrombin Time (Protime)PT. 26.8 SECONDS (11.7-14.9)
--- NOTE | 2025-04-06 22:06 | PCM.HOSP.N ---
Hospitalist Note Patient refusing cardizem which had prior been ordered. Will attempt amiodarone bolus if patient is amenable. Rate as a result not controlled.
[2025-04-06] MEDS: Amiodarone 150 MG in Dextrose 5%-Water (100mL Bag) 100 ML 600 MG IV BOLUS (22:32)
[2025-04-07] VITALS (25 sets, daily range): BP systolic 86–140; BP diastolic 62–111; PULSE 87–128; RESP 16–26; TEMP 36.3–36.8; O2SAT 91–98
[2025-04-07] MEDS: Amiodarone 360 MG in Dextrose 5% Viaflo Bag 192.8 ML 16.7 MG CONT INF (02:24)
[2025-04-07 04:54] LABS: Hematocrit 39.2 % (37-47); Hemoglobin 12.7 g/dL (12.0-15.0); Mean Corp Hgb Conc 32.4 g/dL (32-36); Mean Corpuscular Volume 87.1 fL (81-99); Mean Platelet Vol. 9.1 fl (6.2-12.0); Platelet Count 304 K/mm3 (150-450); RBC Distribution Width CV 15.7 % (11.6-14.6); RBC Distribution Width SD 50.2 fl (35.1-43.9); Red Blood Count 4.50 M/mm3 (4.2-5.4); White Blood Count 7.6 K/mm3 (4.4-11.0)
[2025-04-07 05:41] LABS: AST(SGOT) 62 U/L (<=31); Alanine Aminotransfer ALT/SGPT 72 U/L (<=34); Albumin, Serum 3.6 g/dL (3.4-4.8); Alkaline Phosphatase 175 U/L (35-104); Anion Gap 12 (5-15); BUN 14 mg/dL (4-19); BUN/Creat Ratio 18.6 RATIO (10-20); Bilirubin, Direct 0.42 mg/dL (0.00-0.30); Calcium,Total 8.5 mg/dL (7.6-11.0); Carbon Dioxide 25.1 mmol/L (21.0-32.0); Chloride 99 mmol/L (98-108); Cholesterol 157 mg/dL (<=200); Estimated Creatinine Clearance 40.96 ml/min (50-250); Globulin 2.7 g/dL (2.2-4.2); Glucose 95 mg/dL (70-99); Low Density Lipoprotein Calc. 94 mg/dL; Potassium 3.2 mmol/L (3.3-5.1); Triglycerides 61 mg/dL; Very Low Density Lipoprotein 12 mg/dL (5-40); cholesterol:hdl ratio screen 3.10
--- NOTE | 2025-04-07 08:31 | PN.HOSP_ITS ---
Reason for Visit
--- NOTE | 2025-04-07 08:31 | PCM.PN.HOSP ---
Reason for Visit Chief Complaint: Shortness of breath, abdominal pain for 2 days. Subjective Subjective Breathing well. Still on amiodarone gtt. Objective Data Objective Data Vital Signs: Vital Signs Temp Pulse Resp BP Pulse Ox O2 Del Method 36.5 C L 101 H 20 H 119/78 92 Room Air 04/07/25 05:00 04/07/25 08:08 04/07/25 06:00 04/07/25 06:00 04/07/25 07:42 04/07/25 08:08 Oxygen Delivery Method Room Air Weight: 52.7 kg Body Mass Index (BMI) 22.6 Intake & Output: Intake and Output for Last 24 Hours 04/05/25 04/06/25 04/07/25 23:59 22:59 23:59 Intake Total 103 / 103 60.13 / 60.13 Output Total 100 / 100 Balance 103 / 3 -39.87 / -39.87 Lab / Micro Data 04/07/25 03:44 04/07/25 03:44 Labs: Laboratory Results - last 24 hr 04/06/25 11:10: WBC 10.2, RBC 4.47, Hgb 12.9, Hct 39.0, MCV 87.2, MCH 28.9, MCHC 33.1, RDW Std Deviation 50.1 H, RDW Coeff of Angelo 15.7 H, Plt Count 319, MPV 9.6, Immature Gran % (Auto) 0.600, Neut % (Auto) 77.0 H, Lymph % (Auto) 11.9 L, [place] % (Auto) 10.0, Eos % (Auto) 0.1, Baso % (Auto) 0.4, Absolute Neuts (auto) 7.9 H, Absolute Lymphs (auto) 1.22, Nucleated RBC % 0, PT 26.8 H, INR 2.4, Sodium 135, Potassium 4.2, Chloride 102, Carbon Dioxide 22.1, Anion Gap 11, BUN 13, Creatinine 0.78, Estim Creat Clear Calc 45.39 L, Est GFR (MDRD) Non-Af 77, BUN/Creatinine Ratio 16.6, Glucose 109 H, Calcium 8.8, Magnesium 2.1, Total Bilirubin 1.30, AST 106 H, ALT 86 H, Alkaline Phosphatase 196 H, Troponin T High Sens 9, NT pro BNP II 5089 H, Total Protein 6.5, Albumin 3.9, Globulin 2.6, Albumin/Globulin Ratio 1.5, Lipase 30, TSH 0.970 04/06/25 14:15: Troponin T Hi Sens 2 Hr 7 04/06/25 14:25: Urine Color Yellow, Urine Clarity Clear, Urine pH 6.5, Ur Specific [place] 1.010, Urine Protein 30 H, Urine Glucose (UA) Normal, Urine Ketones Negative, Urine Occult Blood Negative, Urine Nitrite Negative, Urine Bilirubin Negative, Urine Urobilinogen 1 H, Ur Leukocyte Esterase Negative, Urine RBC 0 SEEN, Urine WBC 0 SEEN, Ur Squamous Epith Cells 0-5 SEEN, Urine Bacteria 0 SEEN, Urine Mucus 0 SEEN 04/06/25 16:15: Troponin T Hi Sens 4Hr 8 04/07/25 03:44: WBC 7.6, RBC 4.50, Hgb 12.7, Hct 39.2, MCV 87.1, MCH 28.2, MCHC 32.4, RDW Std Deviation 50.2 H, RDW Coeff of Angelo 15.7 H, Plt Count 304, MPV 9.1, Sodium 136, Potassium 3.2 L, Chloride 99, Carbon Dioxide 25.1, Anion Gap 12, BUN 14, Creatinine 0.75, Estim Creat Clear Calc 40.96 L, Est GFR (MDRD) Non-Af 80, BUN/Creatinine Ratio 18.6, Glucose 95, Calcium 8.5, Total Bilirubin 0.86, Direct Bilirubin 0.42 H, AST 62 H, ALT 72 H, Alkaline Phosphatase 175 H, Total Protein 6.4, Albumin 3.6, Globulin 2.7, Triglycerides 61, Cholesterol 157, LDL Cholesterol, Calc 94, VLDL Cholesterol 12, HDL Cholesterol 51, Cholesterol/HDL Ratio 3.10, TSH 1.120 Radiography Diagnostic Testing: Radiology Impression Abdomen/Pelvis CT 04/06/25 14:00 IMPRESSION: 1. Amorphous areas of diffuse arterial hyperenhancement throughout the right hepatic lobe, resolving on portal venous phase, likely variant perfusion. However, MRI liver mass protocol is recommended in the outpatient setting. Hepatomegaly. 2. Small amount of gas in the gallbladder, nonspecific. Cholelithiasis. 3. Trace ascites in the abdomen/pelvis. 4. Moderate stool in the ascending and transverse colon suggesting constipation. Reading Location: [facility] Chest CTA 04/06/25 14:00 IMPRESSION: 1. No pulmonary embolus. 2. Dilated aortic root, 4.3 cm. No thoracic aortic aneurysm or dissection otherwise. 3. Small amount of loculated pleural fluid throughout on the right, without pleural mass or obvious findings of malignancy. Trace left pleural effusion. Reading Location: [facility] Physical Exam Const alert and no apparent distress HEENT head/scalp atraumatic and moist oral mucous membranes Resp normal respiratory effort, no retractions, no use of accessory muscles and clear to auscultation bilaterally Cardio regular rate, regular rhythm, S1 normal heart sound and S2 normal heart sound GI normal to inspection, nondistended, normoactive bowel sounds, soft to palpation, non-tender and non-distended Neuro Sensorium / Orientation: awake and alert Psych affect normal Assessment & Plan Assessment/Plan (1) Atrial fibrillation with RVR: (2) Congestive heart failure (CHF): QUALIFIERS: Heart failure chronicity: unspecified Heart failure type: unspecified Qualified Code(s): I50.9 - Heart failure, unspecified PLAN: Plan Acute on chronic HFpEF with severe pulmonary hypertension and moderately severe TR: Furosemide 40 mL IV twice daily, willl change back to PO. spironolactone 25/d fluid restriction, daily weight monitoring, kidney and electrolytes monitoring. Fluid restriction Chest x-ray and CT chest and abdomen individually reviewed. Chest x-ray shows bilateral pleural effusion with pulmonary congestion and cardiomegaly and aortic ectasia. 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 A-fib RVR with history of chronic A-fib: Patient on metoprolol 50 mg twice daily and amiodarone 100 mg daily at home. Had metoprolol 5 mg IV x 3 doses and Cardizem 50 mg IV bolus. Pt declined diltiazem. Since started on amiodarone gtt. cardiology consult. loaded with digoxin on 04/07 (500 mcg) and then daily. Hypokalemia replace. monitor. Abdominal distention with elevated transaminases and alkaline phosphatase: CT abdomen shows diffuse arterial hyperenhancement throughout right hepatic lobe resolving on portal venous phase probably variant perfusion. Liver in largest craniocaudal diameter 22 cm. Cholelithiasis and reported trace ascites. Moderate stool in ascending and transverse colon suggesting constipation. Laxative regimen ordered. On exam it seems more abdominal distention and ascites therefore ultrasound with paracentesis ordered for tomorrow. Acetic fluid analysis also ordered. Monitor liver function. She might have liver congestion from CHF Paracentesis has been ordered, but report mentions trace ascites and my personal review does not show significant ascites. Will discontinue paracentesis. Outpatient MRI liver. Chronic medical conditions: Hypertension: On Lopressor and amiodarone. Blood pressure is in normal range. GERD on PPI DVT prophylaxis on warfarin. PT/INR ordered. Charges/Coding Visit Charges Inpatient E&M: 93025 Subs Hosp L2
--- NOTE | 2025-04-07 09:02 | PCM.CONS.C ---
Assessment & Plan Assessment/Plan (1) Atrial fibrillation with RVR: PLAN: Patient has a longstanding history of paroxysmal atrial fibrillation. She was evaluated in the office March 25, 2025 she was in atrial for with a heart rate of 105 bpm. Her amiodarone had been decreased from 200 mg daily to 100 mg daily due to her pulmonary issues. She has a history of pulmonary hypertension and resulting right sided heart failure. The patient is also on long-term Coumadin therapy. Heart rate today is 100-120 bpm. She is on IV amiodarone at this point in time. I would recommend we discontinue amiodarone therapy once this bag is infused. She should also be continued on the metoprolol 50 mg twice daily. (2) Elevated liver enzymes: PLAN: Patient's LFTs are elevated she does appear to be in right sided failure. She has ascites as well as some right greater than left lower extremity edema. And she has known pulmonary hypertension with a pulmonary artery pressures of 80 mmHg on an echocardiogram done 3 months ago. Would recommend discontinuing amiodarone and try to control the rate with the combination of metoprolol and Lanoxin. I do not feel that a echocardiogram is needed at this point time. (3) Anticoagulant long-term use: PLAN: Patient remains on Coumadin titrated to the [facility]. (4) senior living current use of amiodarone: PLAN: Patient should be on amiodarone 100 mg daily this has been utilized for rate control as well as paroxysmal atrial fibs. Her LFTs were normal in the recent past when she was not congested. It is likely the elevated LFTs are related to hepatic congestion but secondary to amiodarone cannot be ruled out. For that reason I would recommend while she is hospitalized that we DC the amiodarone and trying can rate control her with a combination of Lanoxin and metoprolol. (5) Congestive heart failure (CHF): QUALIFIERS: Heart failure type: unspecified Heart failure chronicity: unspecified Qualified Code(s): I50.9 - Heart failure, unspecified PLAN: Patient's congestive heart failure is primarily right-sided. She has known pulmonary artery pressures of 80 mmHg on echo December 2024. She is on spironolactone we may need to increase the dosing of spironolactone she is also on Lasix 40 mg daily in her home environment. Will defer at this point in time any changes in her diuretic therapy until results of the paracentesis are available. PLAN: Plan 1. Patient is scheduled for paracentesis later today. 2. Will plan to discontinue amiodarone and attempt to control of her rate with a combination of beta-ted and Lanoxin. 3. If unable to control her heart rate we will have to resort back to amiodarone and we will perform a oral loading dose. 4. Will load with 0.5 mg IV Lanoxin followed by 0.125 mg orally daily. Will increase the dose for rate control as needed up to 0.25 daily. HPI Consult Data Date of Consult: 04/07/25 HPI Narrative Reason for Consultation: Atrial fibs with RVR HPI Narrative: NIMISHA CEJA, is a 79 F who presents with progressive abdominal swelling. The patient carries a history of right-sided failure related to pulmonary hypertension pulmonary artery pressures known to be in the 80 mmHg range on echocardiogram December 2024. LVEF 60% at that time with mild 1-2+ MR. The patient has been on amiodarone long-term for paroxysmal atrial fibrillation. She is usually on 100 mg daily. On this admission her LFTs are elevated probably multifactorial related to right sided congestion and her ascites. She has been on long-term Coumadin therapy her heart rate usually runs in the 100-105 bpm range. Today she is in atrial fibrillation at 110 bpm. The patient is due to have paracentesis done today. The patient also has a history of thoracentesis related to her heart failure. She is on Lasix in her home environment metoprolol 50 mg twice daily amiodarone 100 mg daily spironolactone 25 mg daily and warfarin. Patient's abdominal swelling and lower extremity edema have been present for over a month. She was evaluated in the [facility] office March 25, 2025 it was found to be fairly stable. Her heart rate was 105 at that time in atrial fibrillation. Currently the patient is resting in the recumbent position in bed at 45 degrees. She denies being short of breath at this time. [facility] Medical History CHF exacerbation History of atrial fibrillation Acute exacerbation of chronic obstructive pulmonary disease Chronic anticoagulation Hypoxia Mitral valve insufficiency Ernandez's esophagus with dysplasia Wears glasses Ambulates with cane Arthritis High cholesterol Difficulty chewing Shortness of breath on exertion History of echocardiogram Cardiology follow-up encounter Bloating Abdominal pain senior living current use of amiodarone Paroxysmal atrial fibrillation Essential hypertension Mixed hyperlipidemia Chronic atrial fibrillation with RVR Exudative pleural effusion Renal cyst Hepatic congestion Recurrent pleural effusion Leukocytosis Embolic infarction Renal infarction Splenic infarction Substance abuse Goiter Non-smoker Atrial fibrillation Congestive heart failure (CHF) Hypertension Rheumatoid arthritis COPD (chronic obstructive pulmonary disease) Pleural effusion Rheumatoid arthritis Paroxysmal atrial fibrillation with RVR Subtherapeutic international normalized ratio (INR) Chronic anticoagulation Pulmonary hypertension Hypokalemia Hyponatremia PNA (pneumonia) COPD (chronic obstructive pulmonary disease) PAF (paroxysmal atrial fibrillation) HTN (hypertension) GERD (gastroesophageal reflux disease) HLD (hyperlipidemia) Marfans syndrome Home Medications ?Medication ?Instructions ?Recorded ?Last Taken ?Type calcium carbonate 600 mg PO DAILY SUPPLEMENT 06/19/19 07/12/21 History multivitamin 1 tab PO DAILY SUPPLEMENT 06/19/19 07/12/21 History albuterol sulfate 90 mcg/actuation 2 puff inhalation Q4H PRN SOB 01/09/20 1 Week Ago History aerosol inhaler ~06/30/21 omeprazole 20 mg capsule,delayed 20 mg PO BID 12/05/24 Unknown History release fluticasone propionate 50 1 - 2 spray intranasal DAILY PRN 01/22/25 Unknown History mcg/actuation nasal health maintnance spray,suspension warfarin 2 mg tablet 2 mg PO SUMOWEFR 01/22/25 Unknown History amiodarone 200 mg tablet 100 mg (1/2 x 200 mg) PO DAILY #45 02/24/25 Unknown Rx tabs metoprolol tartrate 50 mg tablet 50 mg PO BID #180 tabs 03/04/25 Unknown Rx spironolactone 25 mg tablet 25 mg PO QDAY #30 tabs 03/04/25 Unknown Rx furosemide 40 mg tablet (Lasix) 40 mg PO QAM 04/06/25 Unknown History gabapentin 100 mg capsule 100 mg PO BID PRN nerve pain 04/06/25 Unknown History warfarin 3 mg tablet 3 mg PO TUTHSA 04/06/25 Unknown History Allergy/AdvReac Type Severity Reaction Status Date / Time pneumococcal vaccine (From Allergy Severe Rash Verified 04/06/25 11:23 Prevnar 13 (PF)) Latex, Natural Rubber Allergy Rash Verified 04/06/25 11:23 rosuvastatin calcium (From Allergy myalgias Verified 04/06/25 11:23 Crestor) ibuprofen AdvReac Nausea Verified 04/06/25 11:23 Family History Mother Diabetes Colon cancer Marfan syndrome Sister Diabetes Hypertension Brother Marfan syndrome COPD (chronic obstructive pulmonary disease) Brother Marfan syndrome Father Gastric ulcer GERD (gastroesophageal reflux disease) Surgical History History of eye surgery History of hysterectomy Social History household members: spouse and children housing: house Smoking Status: Never smoker alcohol intake: never substance use type: does not use caffeine: Yes Type: coffee Number of servings: 4 ROS Constitutional Constitutional: Reports as per HPI Eyes Eyes: Reports systems reviewed and no addt'l complaints, except as documented ENT HEENT: Reports systems reviewed and no addt'l complaints, except as documented Cardiovascular Cardiovascular: Reports as per HPI Respiratory/Chest Respiratory/Chest: Reports as per HPI Gastrointestinal Gastrointestinal: Reports as per HPI Genitourinary Genitourinary: Reports systems reviewed and no addt'l complaints, except as documented Musculoskeletal Musculoskeletal: Reports as per HPI Integumentary Integumentary: Reports systems reviewed and no addt'l complaints, except as documented Neurologic Neurologic: Reports systems reviewed and no addt'l complaints, except as documented Psychiatric Psychiatric: Reports systems reviewed and no addt'l complaints, except as documented Endocrine Endocrinology: Reports systems reviewed and no addt'l complaints, except as documented Hematologic/Lymphatic Hematologic/Lymphatic: Reports as per HPI Allergic/Immunologic Allergic/Immunologic: Reports systems reviewed and no addt'l complaints, except as documented Physical Exam Const alert and oriented x3 HEENT normocephalic Eyes EOMs intact bilaterally Neck Neck Narrative: JVD noted at 45 degrees. Chest inspection of chest normal Resp normal respiratory effort Auscultation: diminished lung sounds Cardio Rate: tachycardic Rhythm: abnormal rhythm irregularly irregular Heart Sounds: S1 normal, S2 normal and murmur systolic II/ soft right sternal border; Negative for click or gallop GI GI Narrative: Noted protuberant abdomen that was tense to palpation Extremity General Extremity: edema right lower extremity mild and left lower extremity trace Neuro Neuro Narrative: Alert and oriented x 3 Psych mental status grossly normal Charges/Coding Visit Charges Inpatient E&M: 33766 Init Hosp L3 Objective Data Vital Signs: Vital Signs Temp Pulse Resp BP Pulse Ox O2 Del Method 97.7 F L 101 H 20 H 119/78 92 Room Air 04/07/25 05:00 04/07/25 08:08 04/07/25 06:00 04/07/25 06:00 04/07/25 07:42 04/07/25 08:08 Oxygen Delivery Method Room Air Weight: 138 lb 3.677 oz Body Mass Index (BMI) 22.6 Intake & Output: Intake and Output for Last 24 Hours 04/05/25 04/06/25 04/07/25 23:59 22:59 23:59 Intake Total 103 / 103 60.13 / 60.13 Output Total 100 / 100 Balance 103 / 3 -39.87 / -39.87 Lab / Micro Data Attestation: I reviewed the patient's lab results. 04/07/25 03:44 04/07/25 03:44 Labs: Laboratory Results - last 24 hr 04/06/25 11:10: WBC 10.2, RBC 4.47, Hgb 12.9, Hct 39.0, MCV 87.2, MCH 28.9, MCHC 33.1, RDW Std Deviation 50.1 H, RDW Coeff of Angelo 15.7 H, Plt Count 319, MPV 9.6, Immature Gran % (Auto) 0.600, Neut % (Auto) 77.0 H, Lymph % (Auto) 11.9 L, Rowan % (Auto) 10.0, Eos % (Auto) 0.1, Baso % (Auto) 0.4, Absolute Neuts (auto) 7.9 H, Absolute Lymphs (auto) 1.22, Nucleated RBC % 0, PT 26.8 H, INR 2.4, Sodium 135, Potassium 4.2, Chloride 102, Carbon Dioxide 22.1, Anion Gap 11, BUN 13, Creatinine 0.78, Estim Creat Clear Calc 45.39 L, Est GFR (MDRD) Non-Af 77, BUN/Creatinine Ratio 16.6, Glucose 109 H, Calcium 8.8, Magnesium 2.1, Total Bilirubin 1.30, AST 106 H, ALT 86 H, Alkaline Phosphatase 196 H, Troponin T High Sens 9, [place] 5089 H, Total Protein 6.5, Albumin 3.9, Globulin 2.6, Albumin/Globulin Ratio 1.5, Lipase 30, TSH 0.970 04/06/25 14:15: Troponin T Hi Sens 2 Hr 7 04/06/25 14:25: Urine Color Yellow, Urine Clarity Clear, Urine pH 6.5, Ur Specific [place] 1.010, Urine Protein 30 H, Urine Glucose (UA) Normal, Urine Ketones Negative, Urine Occult Blood Negative, Urine Nitrite Negative, Urine Bilirubin Negative, Urine Urobilinogen 1 H, Ur Leukocyte Esterase Negative, Urine RBC 0 SEEN, Urine WBC 0 SEEN, Ur Squamous Epith Cells 0-5 SEEN, Urine Bacteria 0 SEEN, Urine Mucus 0 SEEN 04/06/25 16:15: Troponin T Hi Sens 4Hr 8 04/07/25 03:44: WBC 7.6, RBC 4.50, Hgb 12.7, Hct 39.2, MCV 87.1, MCH 28.2, MCHC 32.4, RDW Std Deviation 50.2 H, RDW Coeff of Angelo 15.7 H, Plt Count 304, MPV 9.1, Sodium 136, Potassium 3.2 L, Chloride 99, Carbon Dioxide 25.1, Anion Gap 12, BUN 14, Creatinine 0.75, Estim Creat Clear Calc 40.96 L, Est GFR (MDRD) Non-Af 80, BUN/Creatinine Ratio 18.6, Glucose 95, Calcium 8.5, Total Bilirubin 0.86, Direct Bilirubin 0.42 H, AST 62 H, ALT 72 H, Alkaline Phosphatase 175 H, Total Protein 6.4, Albumin 3.6, Globulin 2.7, Triglycerides 61, Cholesterol 157, LDL Cholesterol, Calc 94, VLDL Cholesterol 12, HDL Cholesterol 51, Cholesterol/HDL Ratio 3.10, TSH 1.120 Rhythm Strip Rhythm Strip: A-fib Rate: 105 Cardiology Labs/Tests 04/06/25 11:10: WBC 10.2, RBC 4.47, Hgb 12.9, Hct 39.0, MCV 87.2, MCH 28.9, MCHC 33.1, Plt Count 319, MPV 9.6, Immature Gran % (Auto) 0.600, Neut % (Auto) 77.0 H, Lymph % (Auto) 11.9 L, Rowan % (Auto) 10.0, Eos % (Auto) 0.1, Baso % (Auto) 0.4, Absolute Neuts (auto) 7.9 H, Nucleated RBC % 0, PT 26.8 H, INR 2.4, Sodium 135, Potassium 4.2, Chloride 102, Carbon Dioxide 22.1, Anion Gap 11, BUN 13, Creatinine 0.78, Est GFR (MDRD) Non-Af 77, BUN/Creatinine Ratio 16.6, Glucose 109 H, Calcium 8.8, Magnesium 2.1, Total Bilirubin 1.30 04/06/25 14:25: Urine Color Yellow, Urine Clarity Clear, Urine pH 6.5, Ur Specific [place] 1.010, Urine Protein 30 H, Urine Glucose (UA) Normal, Urine Ketones Negative, Urine Occult Blood Negative, Urine Nitrite Negative, Urine Bilirubin Negative, Urine Urobilinogen 1 H, Ur Leukocyte Esterase Negative, Urine RBC 0 SEEN, Urine WBC 0 SEEN 04/07/25 03:44: WBC 7.6, RBC 4.50, Hgb 12.7, Hct 39.2, MCV 87.1, MCH 28.2, MCHC 32.4, Plt Count 304, MPV 9.1, Sodium 136, Potassium 3.2 L, Chloride 99, Carbon Dioxide 25.1, Anion Gap 12, BUN 14, Creatinine 0.75, Est GFR (MDRD) Non-Af 80, BUN/Creatinine Ratio 18.6, Glucose 95, Calcium 8.5, Total Bilirubin 0.86, Direct Bilirubin 0.42 H, Triglycerides 61, Cholesterol 157, VLDL Cholesterol 12, HDL Cholesterol 51, Cholesterol/HDL Ratio 3.10 Rhythm: EKG: ECHO: Stress Test: Cardiac Cath: PCI: CT Surgery: Holter monitor: EPS: PPM: CXR: Chest CT Scan: Radiography Diagnostic Testing: Radiology Impression Abdomen/Pelvis CT 04/06/25 14:00 IMPRESSION: 1. Amorphous areas of diffuse arterial hyperenhancement throughout the right hepatic lobe, resolving on portal venous phase, likely variant perfusion. However, MRI liver mass protocol is recommended in the outpatient setting. Hepatomegaly. 2. Small amount of gas in the gallbladder, nonspecific. Cholelithiasis. 3. Trace ascites in the abdomen/pelvis. 4. Moderate stool in the ascending and transverse colon suggesting constipation. Reading Location: [id number] Chest CTA 04/06/25 14:00 IMPRESSION: 1. No pulmonary embolus. 2. Dilated aortic root, 4.3 cm. No thoracic aortic aneurysm or dissection otherwise. 3. Small amount of loculated pleural fluid throughout on the right, without pleural mass or obvious findings of malignancy. Trace left pleural effusion. Reading Location: [facility] Risk Score for UA/STEMI Assesmment (YES = 1) Risk Stratification Applicable: No
[2025-04-07 09:44] LABS: Prothrombin Time (Protime)PT. 22.7 SECONDS (11.7-14.9)
[2025-04-07] MEDS: 0.9% Saline Lock 10 ML Syringe IV ×4 (10:58→18:31)
[2025-04-07] MEDS: Digoxin 250 MCG/ML Ampul 500 MCG IV (10:58)
[2025-04-07] MEDS: Senna/Docusate Sodium 1 Tablet 2 TABLET PO (10:59)
--- NOTE | 2025-04-07 11:59 | CASEMGMT ---
[facility] TONY Assessment Face to Face with patient for initial transition planning/care coordination assessment. RN CHAVO introduced self and role at [facility], pt voices understanding. Pt is A&Ox4 and is resting comfortably in bed and is calm. Care providers, pharmacy, and demographics verified. Admitting dx: AFIB RVR, CHF Exacerbation LACE Strata: 3 PCP: Wes Magallon Specialists: Kurtis CRAVEN (GI) Preferred Pharmacy: [facility] Insurance: [facility] MCR DUAL COMPLETE, [facility]. Pt reports that she has a Direction Home CM, Aminata Curtis (phone: [phone], fax: [phone]). TC to the CM, no answer. VM left. Pt states that she has Moms meals (9/week) and medical alert system. 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 Prescription Benefit: Yes LNOK: Elle (Daughter), Airam (Daughter) Living Arrangements: Pt lives with her 2 sons (both adults but one is disabled), daughter (Elle), and 26 y/o GS who does the grocery shopping for the pt. ADLs/IADLs: Pt reports that she is indep at baseline. Pt states that she has a GD that helps her at home. Current 6-Click score is 23 and PT is pending. Transportation: Family. Denies concerns currently. DME: Scale for CHF. Medical alert. FWW. Cane. Grab bars. Shower chair. Pt reports that she goes to her PCP for INR monitoring. Pt may qualify for home oxygen use. A verbal list of local in-network DME companies were provided to the pt at this time. Pt prefers [facility]. HHC/SNF: Reports hx with [facility]. Denies SNF. Pt states that she would like skilled HHC again through [facility]. Pt denies PT/OT but would be willing to have SN and SW come to the home. TC to [facility] who reports that they are no longer in network with the pt's insurance. Pt states that she is willing to review a list of other local in-network HHC agencies. DPA notified. Pt?s goal: Home Plan: Home with HHC, follow for oxygen needs. Follow PT eval. Send DC Summary to . Pt denies any further questions or concerns at this time and states that she feels safe with this plan. Report given to LABOR LAW PROFESSOR CM. Marly Horan RN CM
--- NOTE | 2025-04-07 14:06 | CASEMGMT ---
Social Work A list of?HH providers including quality and resource use data and consistent with the patient's preferred geographic region, medical needs, and insurance network was created in [employer] Guide.?This list was provided to the patient. Patient chose [facility] for HH. COURTNEY Pagan
[2025-04-07] MEDS: Potassium Chloride Oral Tablet 20 MEQ 40 MEQ PO (14:38)
[2025-04-07] MEDS: Warfarin (PBKC) 2 MG Tablet PO (18:30)
[2025-04-07] MEDS: Digoxin 250 MCG/ML Ampul 125 MCG IV (18:31)
[2025-04-08] VITALS (10 sets, daily range): BP systolic 133–153; BP diastolic 52–85; PULSE 87–133; RESP 16; TEMP 35.9–36.7; O2SAT 93–94; BMI 23.3
[2025-04-08] MEDS: 0.9% Saline Lock 10 ML Syringe IV (03:10)
[2025-04-08 07:30] LABS: Hematocrit 41.8 % (37-47); Hemoglobin 14.1 g/dL (12.0-15.0); Mean Corp Hgb Conc 33.7 g/dL (32-36); Mean Corpuscular Volume 87.1 fL (81-99); Mean Platelet Vol. 9.0 fl (6.2-12.0); Platelet Count 325 K/mm3 (150-450); RBC Distribution Width CV 15.3 % (11.6-14.6); RBC Distribution Width SD 48.8 fl (35.1-43.9); Red Blood Count 4.80 M/mm3 (4.2-5.4); White Blood Count 8.5 K/mm3 (4.4-11.0)
--- NOTE | 2025-04-08 08:00 | PCM.PN.CARD ---
Subjective Subjective Patient reports that she is doing better this morning. She did have some loose stools yesterday. Her paracentesis was canceled due to lack of significant amount of fluid. She is on Coumadin her INR target should be 2?3. Patient does note multiple trips to the bathroom without incident. Patient's heart rate remains in the 100 bpm range. Overnight telemetry has shown atrial fibrillation with a heart rate from 87?110. She is on metoprolol 50 mg twice daily and was loaded with Lanoxin yesterday. Her blood pressures are good and we will increase her metoprolol to 50 mg 3 times daily. Objective Data Vital Signs: Vital Signs Temp Pulse Resp BP Pulse Ox O2 Del Method 96.7 F L 105 H 16 138/79 H 94 Room Air 04/08/25 03:12 04/08/25 03:12 04/08/25 03:12 04/08/25 03:12 04/08/25 03:12 04/08/25 03:12 Oxygen Delivery Method Room Air Weight: 119 lb 7.849 oz Body Mass Index (BMI) 23.3 Intake & Output: Intake and Output for Last 24 Hours 04/06/25 04/07/25 04/08/25 22:59 23:59 23:59 Intake Total 103 / 103 870.00 / 870.00 Output Total 100 / 100 Balance 103 / 3 770.00 / 770.00 Lab / Micro Data 04/08/25 07:02 04/07/25 03:44 Labs: Laboratory Results - last 24 hr 04/07/25 09:14: PT 22.7 H, INR 2.0 04/08/25 07:02: WBC 8.5, RBC 4.80, Hgb 14.1, Hct 41.8, MCV 87.1, MCH 29.4, MCHC 33.7, RDW Std Deviation 48.8 H, RDW Coeff of Angelo 15.3 H, Plt Count 325, MPV 9.0 Rhythm Strip Rhythm Strip: A-fib Rate: 110 Cardiology Labs/Tests 04/07/25 09:14: PT 22.7 H, INR 2.0 04/08/25 07:02: WBC 8.5, RBC 4.80, Hgb 14.1, Hct 41.8, MCV 87.1, MCH 29.4, MCHC 33.7, Plt Count 325, MPV 9.0 Rhythm: EKG: ECHO: Stress Test: Cardiac Cath: PCI: CT Surgery: Holter monitor: EPS: PPM: CXR: Chest CT Scan: Physical Exam Const alert and oriented x3 HEENT normocephalic Eyes EOMs intact bilaterally Chest inspection of chest normal Resp normal respiratory effort and clear to auscultation bilaterally Cardio Rate: tachycardic Rhythm: abnormal rhythm irregularly irregular Heart Sounds: S1 normal, S2 normal and murmur systolic I/ soft right sternal border; Negative for click or gallop GI soft to palpation GI Narrative: Protuberant with normal bowel sounds Extremity no pedal edema Neuro Neuro Narrative: Alert and oriented x 3 Psych mental status grossly normal Assessment & Plan Assessment/Plan (1) Atrial fibrillation with RVR: PLAN: Patient remains in atrial fibrillation heart rate is better controlled but still consistently above 100 bpm. Blood pressure is stable in the 130 systolic range. I would recommend we increase metoprolol to 50 mg 3 times daily and continue her Lanoxin at 0.125 mg daily. The patient's elevated LFTs prompted discontinuation of the amiodarone. (2) Elevated liver enzymes: PLAN: Patient's LFTs had started to come down the amiodarone was discontinued this is probably multifactorial related to hepatic congestion from right sided heart failure with her pulmonary hypertension. Her congestion appears to be improving lower extremity edema has resolved and she reports multiple trips to the bathroom for urine output. (3) Anticoagulant long-term use: PLAN: Patient remains on Coumadin with a target INR of 2?3. Coumadin will be reinstituted as her paracentesis has been canceled due to small amount of fluid in her abdomen. (4) Congestive heart failure (CHF): QUALIFIERS: Heart failure chronicity: unspecified Heart failure type: unspecified Qualified Code(s): I50.9 - Heart failure, unspecified PLAN: Patient has primarily right sided heart failure LVEF is 60% on echocardiogram in December. The patient will be continued on current medical therapy she is on spironolactone 25 mg twice daily this is to treat both hepatic congestion and her right sided heart failure. She is also on metoprolol and Lanoxin. 1 option to help the patient's pulmonary hypertension may be 24 7 nasal cannula oxygen. It would be worth evaluating her with ambulation to see if she desaturates to the point that would qualify her for home oxygen therapy. PLAN: Plan 1. Recommend evaluate the patient for home oxygen therapy. 2. Will increase metoprolol to 50 mg 3 times daily. 3. Need to reevaluate liver function test and electrolytes today. Labs are pending at this time. 4. Will follow-up with you over the next 24 to 48 hours. Charges/Coding Visit Charges Inpatient E&M: 93124 Subs Hosp L2
[2025-04-08 08:10] LABS: Prothrombin Time (Protime)PT. 21.4 SECONDS (11.7-14.9)
[2025-04-08 08:17] LABS: AST(SGOT) 38 U/L (<=31); Alanine Aminotransfer ALT/SGPT 58 U/L (<=34); Albumin, Serum 3.7 g/dL (3.4-4.8); Alkaline Phosphatase 182 U/L (35-104); Anion Gap 10 (5-15); BUN 11 mg/dL (4-19); BUN/Creat Ratio 15.2 RATIO (10-20); Bilirubin, Direct 0.55 mg/dL (0.00-0.30); Calcium,Total 8.9 mg/dL (7.6-11.0); Carbon Dioxide 24.0 mmol/L (21.0-32.0); Chloride 101 mmol/L (98-108); Estimated Creatinine Clearance 40.96 ml/min (50-250); Globulin 2.9 g/dL (2.2-4.2); Glucose 89 mg/dL (70-99); Potassium 4.4 mmol/L (3.3-5.1)
--- NOTE | 2025-04-08 08:25 | PN.HOSP_ITS ---
Reason for Visit
--- NOTE | 2025-04-08 08:25 | PCM.PN.HOSP ---
Reason for Visit Chief Complaint: Shortness of breath, abdominal pain for 2 days. Subjective Subjective Feeling well. Objective Data Objective Data Vital Signs: Vital Signs Temp Pulse Resp BP Pulse Ox O2 Del Method 36.7 C 113 H 16 145/60 H 93 Room Air 04/08/25 08:22 04/08/25 08:22 04/08/25 08:22 04/08/25 08:22 04/08/25 08:22 04/08/25 08:22 Oxygen Delivery Method Room Air Weight: 54.2 kg Body Mass Index (BMI) 23.3 Intake & Output: Intake and Output for Last 24 Hours 04/06/25 04/07/25 04/08/25 22:59 23:59 23:59 Intake Total 103 / 103 870.00 / 870.00 Output Total 100 / 100 Balance 103 / 3 770.00 / 770.00 Lab / Micro Data 04/08/25 07:02 04/08/25 07:02 Labs: Laboratory Results - last 24 hr 04/07/25 09:14: PT 22.7 H, INR 2.0 04/08/25 07:02: WBC 8.5, RBC 4.80, Hgb 14.1, Hct 41.8, MCV 87.1, MCH 29.4, MCHC 33.7, RDW Std Deviation 48.8 H, RDW Coeff of Angelo 15.3 H, Plt Count 325, MPV 9.0, PT 21.4 H, INR 1.8, Sodium 136, Potassium 4.4, Chloride 101, Carbon Dioxide 24.0, Anion Gap 10, BUN 11, Creatinine 0.70, Estim Creat Clear Calc 40.96 L, Est GFR (MDRD) Non-Af 87, BUN/Creatinine Ratio 15.2, Glucose 89, Calcium 8.9, Total Bilirubin 0.96, Direct Bilirubin 0.55 H, AST 38 H, ALT 58 H, Alkaline Phosphatase 182 H, Total Protein 6.6, Albumin 3.7, Globulin 2.9 Rhythm Strip Rhythm Strip: A-fib Rate: 110 Physical Exam Const alert and no apparent distress HEENT head/scalp atraumatic and moist oral mucous membranes Resp normal respiratory effort, no retractions, no use of accessory muscles and clear to auscultation bilaterally Cardio regular rate, regular rhythm, S1 normal heart sound and S2 normal heart sound GI normal to inspection, nondistended, normoactive bowel sounds, soft to palpation, non-tender and non-distended Extremity normal to inspection and full ROM Assessment & Plan Assessment/Plan (1) Atrial fibrillation with RVR: (2) Congestive heart failure (CHF): QUALIFIERS: Heart failure chronicity: unspecified Heart failure type: unspecified Qualified Code(s): I50.9 - Heart failure, unspecified PLAN: Plan Acute on chronic HFpEF with severe pulmonary hypertension and moderately severe TR: Furosemide PO. spironolactone 25/d fluid restriction, daily weight monitoring, kidney and electrolytes monitoring. Fluid restriction Chest x-ray and CT chest and abdomen individually reviewed. Chest x-ray shows bilateral pleural effusion with pulmonary congestion and cardiomegaly and aortic ectasia. 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 A-fib RVR with history of chronic A-fib: Patient on metoprolol 50 mg twice daily and amiodarone 100 mg daily at home. Had metoprolol 5 mg IV x 3 doses and Cardizem 50 mg IV bolus. Pt declined diltiazem. Since started on amiodarone gtt. metoprolol 50 TID loaded with digoxin on 04/07 (500 mcg) and then 125 mcg daily. Hypokalemia resolved after replacement. Abdominal distention with elevated transaminases and alkaline phosphatase: CT abdomen shows diffuse arterial hyperenhancement throughout right hepatic lobe resolving on portal venous phase probably variant perfusion. Liver in largest craniocaudal diameter 22 cm. Cholelithiasis and reported trace ascites. Moderate stool in ascending and transverse colon suggesting constipation. Laxative regimen ordered. On exam it seems more abdominal distention and ascites therefore ultrasound with paracentesis ordered for tomorrow. Acetic fluid analysis also ordered. Monitor liver function. She might have liver congestion from CHF Paracentesis has been ordered, but report mentions trace ascites and my personal review does not show significant ascites. Will discontinue paracentesis. Outpatient MRI liver. Chronic medical conditions: Hypertension: On Lopressor and amiodarone. Blood pressure is in normal range. GERD on PPI DVT prophylaxis on warfarin.
--- NOTE | 2025-04-08 13:24 | PCM.DC.SUM ---
Providers Date of Admission: 04/06/25 Primary Care Physician: Dr. Wes Magallon MD Consultations 04/06/25 17:24 Consult: Cardiology Routine Consulting Provider: Yo Phan Reason for Consult: afib rvr, HF exa, marfan's syn? EMERGENT Consult: No Notified: Yes Date Notified: 04/06/25 Time Notified: 17:24 Method of Notification: Text Reason For Visit: AFIB RVR, CHF EXA Diagnosis Discharge Diagnosis (1) Atrial fibrillation with RVR: Status: Acute Code(s): I48.91 - Unspecified atrial fibrillation (2) Congestive heart failure (CHF): Status: Acute Code(s): I50.9 - Heart failure, unspecified Qualifiers: Heart failure type: unspecified Heart failure chronicity: unspecified Qualified Code(s): I50.9 - Heart failure, unspecified Plan Acute on chronic HFpEF with severe pulmonary hypertension and moderately severe TR: Furosemide PO. spironolactone 25/d fluid restriction, daily weight monitoring, kidney and electrolytes monitoring. Fluid restriction Chest x-ray and CT chest and abdomen individually reviewed. Chest x-ray shows bilateral pleural effusion with pulmonary congestion and cardiomegaly and aortic ectasia. 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 A-fib RVR with history of chronic A-fib: Patient on metoprolol 50 mg twice daily and amiodarone 100 mg daily at home. Had metoprolol 5 mg IV x 3 doses and Cardizem 50 mg IV bolus. Pt declined diltiazem. Since started on amiodarone gtt. metoprolol 50 TID loaded with digoxin on 04/07 (500 mcg) and then 125 mcg daily. Hypokalemia resolved after replacement. Abdominal distention with elevated transaminases and alkaline phosphatase: CT abdomen shows diffuse arterial hyperenhancement throughout right hepatic lobe resolving on portal venous phase probably variant perfusion. Liver in largest craniocaudal diameter 22 cm. Cholelithiasis and reported trace ascites. Moderate stool in ascending and transverse colon suggesting constipation. Laxative regimen ordered. On exam it seems more abdominal distention and ascites therefore ultrasound with paracentesis ordered for tomorrow. Acetic fluid analysis also ordered. Monitor liver function. She might have liver congestion from CHF Paracentesis has been ordered, but report mentions trace ascites and my personal review does not show significant ascites. Will discontinue paracentesis. Outpatient MRI liver. Chronic medical conditions: Hypertension: On Lopressor and amiodarone. Blood pressure is in normal range. GERD on PPI DVT prophylaxis on warfarin. Medications at Discharge Home Medications calcium carbonate 600 mg PO DAILY SUPPLEMENT 06/19/19 multivitamin 1 tab PO DAILY SUPPLEMENT 06/19/19 albuterol sulfate 90 mcg/actuation aerosol inhaler 2 puff inhalation Q4H PRN SOB 01/09/20 omeprazole 20 mg capsule,delayed release 20 mg PO BID 12/05/24 fluticasone propionate 50 mcg/actuation nasal spray,suspension 1 - 2 spray intranasal DAILY PRN health maintnance 01/22/25 warfarin 2 mg tablet 2 mg PO SUMOWEFR 01/22/25 amiodarone 200 mg tablet 100 mg (1/2 x 200 mg) PO DAILY #45 tabs 02/24/25 furosemide 40 mg tablet (Lasix) 40 mg PO QAM 04/06/25 gabapentin 100 mg capsule 100 mg PO BID PRN nerve pain 04/06/25 warfarin 3 mg tablet 3 mg PO TUTHSA 04/06/25 digoxin 125 mcg (0.125 mg) tablet 125 mcg PO DAILY #30 tabs 04/08/25 metoprolol tartrate 50 mg tablet 50 mg PO TID #90 tabs 04/08/25 spironolactone 25 mg tablet 25 mg PO BID #60 tabs 04/08/25 Hospital Course Operations None Procedures None Summary of Care Provided Hospital Course: Greater than 30-minute spent on discharge This is an 89-year-old female presents with shortness of breath. Patient diagnosed with acute HFpEF. Patient also had A-fib with RVR. Patient also did have abdominal distention. There was concern because there was some ascites but it was a trace amount so a paracentesis was not performed. Patient diuresed well and is requiring room air oxygen. With atrial fibrillation, patient required numerous medications but will be discharged with digoxin and metoprolol tartrate. Weight / BMI Weight Weight: 54.2 kg Body Mass Index (BMI) 23.3 ABG / Lab / Microbiology Data 04/08/25 07:02 04/08/25 07:02 Laboratory: Laboratory Results - last 24 hr 04/08/25 07:02: WBC 8.5, RBC 4.80, Hgb 14.1, Hct 41.8, MCV 87.1, MCH 29.4, MCHC 33.7, RDW Std Deviation 48.8 H, RDW Coeff of Angelo 15.3 H, Plt Count 325, MPV 9.0, PT 21.4 H, INR 1.8, Sodium 136, Potassium 4.4, Chloride 101, Carbon Dioxide 24.0, Anion Gap 10, BUN 11, Creatinine 0.70, Estim Creat Clear Calc 40.96 L, Est GFR (MDRD) Non-Af 87, BUN/Creatinine Ratio 15.2, Glucose 89, Calcium 8.9, Total Bilirubin 0.96, Direct Bilirubin 0.55 H, AST 38 H, ALT 58 H, Alkaline Phosphatase 182 H, Total Protein 6.6, Albumin 3.7, Globulin 2.9 D/C Instructions DC O2, CPAP, BIPAP Needs Home O2 Discharge instructions: No Meaningful Use Info Meaningful Use Meaningful Use Diagnoses (Choose all that apply): CHF CHF NEHA/ARB ordered at discharge?: No Reason NEHA/ARB not ordered?: Normal EF Documented LVEF (%): 60 Discharge Plan Admission Admit Date/Time: 04/06/25 16:52 Primary Reason for Your Visit: CHF exacerbation Attending Provider: Oj Lorenzo Primary Care Provider: Wes Magallon Consulting Providers: Yo Phan; Ant Polanco Discharge Orders/Prescriptions Prescriptions: New spironolactone 25 mg Tablet 25 mg PO BID Qty: 60 0RF metoprolol tartrate 50 mg Tablet 50 mg PO TID Qty: 90 0RF digoxin 125 mcg (0.125 mg) Tablet 125 mcg PO DAILY Qty: 30 0RF Continued multivitamin Tablet 1 tab PO DAILY calcium carbonate 600 mg calcium (1,500 mg) tablet 600 mg PO DAILY albuterol sulfate 90 mcg/actuation HFA aerosol inhaler 2 puff INHALATION Q4H PRN (Reason: SOB) omeprazole 20 mg capsule,delayed release(DR/EC) 20 mg PO BID furosemide [Lasix] 40 mg tablet 40 mg PO QAM warfarin 3 mg tablet 3 mg PO TUTHSA gabapentin 100 mg capsule 100 mg PO BID PRN (Reason: nerve pain) warfarin 2 mg tablet 2 mg PO SUMOWEFR fluticasone propionate 50 mcg/actuation spray,suspension 1 - 2 spray INTRANASAL DAILY PRN ([facility]: [facility] amiodarone 200 mg tablet 100 mg PO DAILY Qty: 45 3RF Discontinued metoprolol tartrate 50 mg tablet 50 mg PO BID Qty: 180 3RF spironolactone 25 mg tablet 25 mg PO QDAY Qty: 30 2RF Referrals / Follow Up: [facility] [Provider Group] - 04/21/25 2:30 pm Wes Magallon MD [Primary Care Provider, Medical] - Within 2 Weeks Disposition Disposition (needs filled in before D/C Order can be placed): Home, Self Care Charges/Coding Visit Charges Inpatient E&M: 73703 Disch Hosp >30min
--- NOTE | 2025-04-08 14:13 | CASEMGMT ---
Addendum entered by Gillian Galdamez 04/08/25 15:05: [facility] declined. RN CM updated. Gillian Galdamez DC Planning Asst. Original Note: Discharge Planning HH referral sent to [facility]. Gillian Galdamez DC Planning Asst.
--- NOTE | 2025-04-08 14:14 | PHA.DC_ITS ---
Pharmacy DC Med Rec Counseling
--- NOTE | 2025-04-08 14:14 | PHA.DC.MC.R ---
Pharmacy [facility] Counseling Pharmacy Service has performed discharge medication reconciliation and counseling for this patient. The patient's discharge medication list was reviewed for discrepancies and discrepancies were resolved. The patient was counseled on the following discharge medications and changes in medications for homegoing were reviewed. The Reason for Use, instructions for use, and potential side effects were reviewed for all new medications. The patient's questions regarding all of their medications were answered. 1. Digoxin .125 mg PO daily 2. Metoprolol tartrate 50 mg PO TID 3. Spironolactone 25 mg PO BID The patient was able to verbally demonstrate an understanding of their discharge medications. The patient was counselled on new medications by pharmacy consultant Perry. Medications at Discharge Home Medications calcium carbonate 600 mg PO DAILY SUPPLEMENT 06/19/19 multivitamin 1 tab PO DAILY SUPPLEMENT 06/19/19 albuterol sulfate 90 mcg/actuation aerosol inhaler 2 puff inhalation Q4H PRN SOB 01/09/20 omeprazole 20 mg capsule,delayed release 20 mg PO BID reflux 12/05/24 fluticasone propionate 50 mcg/actuation nasal spray,suspension 1 - 2 spray intranasal DAILY PRN health maintnance 01/22/25 warfarin 2 mg tablet 2 mg PO SUMOWEFR blood thinner 01/22/25 amiodarone 200 mg tablet 100 mg (1/2 x 200 mg) PO DAILY heart rate #45 tabs 02/24/25 furosemide 40 mg tablet (Lasix) 40 mg PO QAM diuretic 04/06/25 gabapentin 100 mg capsule 100 mg PO BID PRN nerve pain 04/06/25 warfarin 3 mg tablet 3 mg PO TUTHSA blood thinner 04/06/25 digoxin 125 mcg (0.125 mg) tablet 125 mcg PO DAILY #30 tabs 04/08/25 metoprolol tartrate 50 mg tablet 50 mg PO TID #90 tabs 04/08/25 spironolactone 25 mg tablet 25 mg PO BID #60 tabs 04/08/25
--- NOTE | 2025-04-08 14:29 | CASEMGMT ---
Addendum entered by Mayra Gaston 04/08/25 16:19: [facility], and [facility]. PEYTON TONY in to update patient, daughter at bedside. Patient states she would prefer [facility]. Patient denied further questions or concerns. PEYTON TONY updated discharge plan. PEYTON TONY updated DC [place] planning manager of [facility]. Original Note: PEYTON TONY updated by DC [place] planning manager that [facility] declined patient. PEYTON TONY in to update patient of [facility] not able to accept patient. Patient agreeable to have multiple referrals sent to difficulty finding [facility] due to insurance. Pateint had no further questions. PEYTON TONY updated DC Frit Burner to send multiple referrals to [facility] on patient's [facility] list. CM will continue to follow this patient and plan for a safe discharge.
--- NOTE | 2025-04-08 15:05 | CASEMGMT ---
Addendum entered by Gillian Galdamez 04/08/25 16:20: AO is [facility]. Grabiel updated. Gillian Galdamez DC Planning Asst. Addendum entered by Gillian Galdamez 04/08/25 16:12: [facility] declined. [facility], and [facility] accepted. PEYTON TONY updated. Gillian Galdamez DC Planning Asst. Original Note: Discharge Planning HH referral sent to [facility], [facility], and [facility]. Gillian Galdamez DC Planning Asst.
--- NOTE | 2025-04-10 18:08 | CASEMGMT ---
Care Management Certified nurse director case Nubia Rivera, through patient's insurance ([phone]) called for disposition and able to provide patient identifiers. For continuity of care, returned call and provided d/c disposition, so that Nubia may also follow up with the patient. No other needs requested. -SHARONDA Schreiber
== END 2025-04-08 16:40 | disposition home health service (06) | DRG 291 ==
LOC: ED 16:45 → PCU 17:59
PROVIDERS: Admitting Provider Internal Medicine; Emergency Provider Student in an Organized Health Care Education/Training Program; PCP Family Medicine
DX: I11.0 Hypertensive heart disease with heart failure (principal); I50.33 Acute on chronic diastolic (congestive) heart failure; Q87.40 Marfan syndrome, unspecified; R18.8 Other ascites; I27.20 Pulmonary hypertension, unspecified; J44.9 Chronic obstructive pulmonary disease, unspecified; I48.91 Unspecified atrial fibrillation; K80.20 Calculus of gallbladder without cholecystitis without obstruction; K21.9 Gastro-esophageal reflux disease without esophagitis; E87.6 Hypokalemia; Z90.710 Acquired absence of both cervix and uterus; Z79.899 Other long term (current) 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; Z79.51 Long term (current) use of inhaled steroids; Z79.01 Long term (current) use of anticoagulants
CPT/HCPCS: 36415; 71275; 74177; 80048; 80053; 80061; 80076; 81001; 83690; 83735; 83880; 84443; 84484; 85025; 85027; 85610; 93005; 94668; 94762; 97116; 97162; 97165; 97530; 99285; Q9967; A4216; J1938

== ENCOUNTER 2025-04-15 23:59 | Emergency (ER) | payer MEDICARE, MEDICAID, SELFPAY ==
[2025-04-16 00:01] VITALS: BP 108/49; PULSE 105; RESP 20; TEMP 36.7; O2SAT 94; BMI 24.4
--- NOTE | 2025-04-16 00:22 | CT_ITS ---
PROCEDURE: ABDOMEN/PELVIS W IV CONT ONLY 04/16/2025 REASON FOR EXAM: ? SBO TECHNIQUE: Procedure Code: [id number] Modality: CT Procedure: ABDOMEN/PELVIS W IV CONT ONLY Coronal and Sagittal reconstruction series were provided. CONTRAST: OMNIPAQUE 350 VOLUME: 100 mL One or more dose reduction techniques were used (e.g., Automated exposure control, adjustment of the mA and/or kV according to patient size, use of iterative reconstruction technique. RADIATION DOSE SUMMARY: CTDlvol: 11.1 mGy DLP: 501 mGycm COMPARISON: 04/06/2025. FINDINGS: Unchanged mild right pleural effusion. Decreased left pleural effusion. Unchanged bilateral basilar airspace disease of the lower lobes. Unchanged cardiomegaly. Unchanged scattered simple hepatic cysts with the largest measuring 2.2 cm. Unchanged hepatomegaly with hepatic steatosis. Unchanged hepatic heterogeneous perfusion, probably secondary to hepatic steatosis with chronic parenchymal liver disease. Distended gallbladder containing gallstones. The distended gallbladder is compressing the gastric outlet. Secondary partial gastric outlet obstruction. Fluid-filled distended stomach. Dilated biliary tree, unchanged. Unchanged 10.4 mm obstructing stone of the most distal aspect of the common bile duct. Unchanged intrahepatic and extrahepatic biliary ductal dilatation. The common bile duct measures 16.4 mm in its largest transverse dimension. Unchanged dilated pancreatic duct. Moderate amount of fecal residue in the large bowels. Uncomplicated colonic diverticulosis. Unchanged mild amount of free pelvic fluid. Prior hysterectomy, unchanged. Unchanged osteopenia with diffuse spondylosis. Unchanged sacral Tarlov nerve root cysts. Normal spleen. Normal bilateral adrenal glands. Normal size of the right kidney. There is no right renal mass. There are no right renal calculi. There is no right hydronephrosis. Normal visualized right ureter. Normal size of the left kidney. There is no left renal mass. There are no left renal calculi. There is no left hydronephrosis. Normal visualized left ureter. Normal small intestine. The appendix is not visualized. Mild calcified atheromatous plaques of the abdominal aorta. Normal inferior vena cava. Normal retroperitoneum. Normal urinary bladder. There is no pelvic mass lesion or lymphadenopathy. CT/Abdomen/Pelvis W IV Cont ONLY IMPRESSION: Unchanged mild right pleural effusion. Decreased left pleural effusion. Unchanged bilateral basilar airspace disease of the lower lobes. Unchanged cardiomegaly. Unchanged scattered simple hepatic cysts with the largest measuring 2.2 cm. Unchanged hepatomegaly with hepatic steatosis. Unchanged hepatic heterogeneous perfusion, probably secondary to hepatic steato sis with chronic parenchymal liver disease. Distended gallbladder containing gallstones. The distended gallbladder is compressing the gastric outlet. Secondary partial gastric outlet obstruction. Fluid-filled distended stomach. Dilated biliary tree, unchanged. Unchanged 10.4 mm obstructing stone of the most distal aspect of the common yolanda e duct. Unchanged intrahepatic and extrahepatic biliary ductal dilatation. The common bile duct measures 16.4 mm in its largest transverse dimension. Unchanged dilated pancreatic duct. Moderate amount of fecal residue in the large bowels. Uncomplicated colonic diverticulosis. Unchanged mild amount of free pelvic fluid. Prior hysterectomy, unchanged. Unchanged osteopenia with diffuse spondylosis. Unchanged sacral Tarlov nerve root cysts. No CT evidence of small-bowel obstruction. Reading [facility]
[2025-04-16] MEDS: 0.9% Normal Saline (1000mL) 1,000 ML 999 ML IV (00:28)
[2025-04-16 00:33] LABS: Hematocrit 43.2 % (37-47); Hemoglobin 13.9 g/dL (12.0-15.0); Immature Granulocytes Count 0.090 X10^3/uL (0.0-0.0); Mean Corp Hgb Conc 32.2 g/dL (32-36); Mean Corpuscular Volume 89.1 fL (81-99); Mean Platelet Vol. 8.9 fl (6.2-12.0); NRBC Flagged by Analyzer 0 % (0-5); Platelet Count 397 K/mm3 (150-450); RBC Distribution Width CV 15.3 % (11.6-14.6); RBC Distribution Width SD 50.1 fl (35.1-43.9); Red Blood Count 4.85 M/mm3 (4.2-5.4); White Blood Count 11.5 K/mm3 (4.4-11.0)
--- OUTSIDE RECORDS SUMMARY | 2025-04-16 00:34 | XMS RPT_ITS | CCD ---
Author Organization [facility] CliniSyct Care Team Providers Care Certified Green Building Engineer Name Role Phone AMBER MANNING Unavailable Unavailable Monroe Burden Unavailable Unavailable NIGELMAT ORDONEZNETH Unavailable Unavailable MAT MANNINGNETH Unavailable Unavailable Monroe Burden RAlexander Unavailable Unavailable Monroe Burden Unavailable Unavailable MAT MANNINGNETH Unavailable Unavailable AMBER MANNING Unavailable Unavailable Christopher Bonilla MD Primary Care Provider Mirtha RN, Elisabeth Owens Unavailable Unavail able Junaid Arriaga Unavailable Dr. Christopher Bonilla Primary Care Provider Dr. Christopher Bonilla Referring Provider Lilliana CLICKING MACHINE OPERATOR, CHEMAC Hima Attending Provider Dr. Deidra Panchal Emergency Provider Dr. Nany Pinon Admit Provider Dr. Joleen Foster Attending Provider Dr. Joleen Foster Other Provider Dr. Oj Lorenzo Attending Provider Dr. Oj Lorenzo Other Provider MD Robert Healy Emergency Provider Dr. Dolly Reich Admit Provider Dr. Dolly Reich Attending Provider Dr. Dolly Reich Other Provider Dr. Joleen Foster Referring Provider Dr. Flaquito Mariee Attending Provider Dr. Luis Hall Emergency Provider Dr. Elisaebth Nascimento Admit Provider Dr. Elisabeth Nascimento Attending Provider Dr. Elisabeth Nascimento Other Provider Dr. Flaquito Mariee Other Provider Dr. Dwayne Garcia Other Provider Emiliano CHRISTINA, CLICKING MACHINE OPERATOR-C Amy Other Provider Dr. Malika Jain Other Provider Dr. Elisabeth Nascimento Referring Provider Dr. Dwayne Garcia Attending Provider Dr. Christine Borges Other Provider Dr. Spring Cabrera Attending Provider Dr. Christine Borges Attending Provider [phone] Emiliano CHRISTINA, CLICKING MACHINE OPERATOR-C Amy Attending Provider [phone] Dr. Christopher Bonilla Primary Care Provider Dr. Christopher Bonilla Referring Provider Lilliana CHRISTINA, CLICKING MACHINE OPERATOR-C Hima Attending Provider Santos Calvin Unavailable Mirtha TODD, Elisabeth Owens Unavailable Dr. Christopher Bonilla Primary Care Provider Dr. Joleen Foster Attending Provider Dr. Joleen Foster Other Provider Dr. Oj Lorenzo Attending Provider Dr. Oj Lorenzo Other Provider Emiliano CHRISTINA, CLICKING MACHINE OPERATOR-C Amy Referring Provider Flaquito Mariee Unavailable Christopher Bonilla MD Primary Care Provider Mirtha TODD, Elisabeth Owens Unavailable Junaid Arriaga Unavailable Santos Calvin Miguel Unavailable Flaquito Mariee Unavailable Christopher Bonilla MD Unavailable Anastasiya MARKS, Mera Unavailable [phone] Mo TODD, Erik Unavailable Dr. Christopher Bonilla Primary Care Provider Emiliano CLICKING MACHINE OPERATOR, CLICKING MACHINE OPERATOR-C Amy Other Provider Dr. Dwayne Garcia Attending Provider Dr. Flaquito Mariee Attending Provider Dr. Christopher Bonilla Referring Provider Lilliana CLICKING MACHINE OPERATOR, CLICKING MACHINE OPERATOR-C Hima Attending Provider Dr. Oj Mariano Emergency Provider Dr. Elisabeth Nascimento Admit Provider Dr. Elisabeth Nascimento Attending Provider Dr. Elisabeth Nascimento Other Provider Dr. Flaquito Mariee Other Provider Dr. Dwayne Garcia Other Provider Dr. Alberto Gill Other Provider Unavailab le Dr. Fatimah Mcclain Other Provider Dr. Fatimah Mcclain Attending Provider Dr. Abimael Banks Other Provider Dr. Gurjit Reese Other Provider Dr. Gurjit Reese Attending Provider Christopher Bonilla MD Unavailable Mirtha TODD, Elisabeth Owens Unavailable Junaid Arriaga Unavailable Nikunj, Santos Lubin Unavailable Flaquito Mariee Unavailable Anastasiya MARKS, Mera Unavailable [phone] Mo TODD, Erik Unavailable Christopher Bonilla MD Primary Care Provider Christopher Bonilla MD Unavailable Dr. Christopher Bonilla Primary Care Provider Dr. Christopher Bonilla Referring Provider Dr. Flaquito Mariee Attending Provider Dr. Dwayne Garcia Attending Provider Emiliano CLICKING MACHINE OPERATOR, CLICKING MACHINE OPERATOR-C Amy Other Provider Dr. Nany Pinon Referring Provider Dr. Gurjit Reese Referring Provider Dr. Junaid Arriaga Attending Provider Dr. Christopher Bonilla Primary Care Provider Dr. Oj Mariano Emergency Provider Dr. Elisabeth Nascimento Admit Provider Dr. Elisabeth Nascimento Attending Provider Dr. Elisabeth Nascimento Other Provider Dr. Flaquito Mariee Other Provider Dr. Dwayne Garcia Attending Provider Dr. Dwayne Garcia Other Provider Dr. Alberto Gill Other Provider Unavailab le Emiliano CLICKING MACHINE OPERATOR, CLICKING MACHINE OPERATOR-C Amy Other Provider Dr. Fatimah Mcclain Other Provider Dr. Nany Pinon Referring Provider Dr. Fatimah Mcclain Attending Provider Dr. Gurjit Reese Referring Provider Dr. Abimael Banks Other Provider Dr. Gurjit Reese Other Provider Dr. Flaquito Mariee Attending Provider Dr. Gurjit Reese Attending Provider Dr. Christopher Bonilla Referring Provider Dr. Junaid Arriaga Attending Provider Christopher Bonilla MD Primary Care Provider Mirtha TODD, Elisabeth Owens Unavailable Junaid Arriaga Unavailable Santos Calvin Unavailable Flaquito Mariee Unavailable Christopher Bonilla MD Unavailable Anastasiya MARKS, Mera Unavailable Nikunj MARKS, Santos Lubin Unavailable Mirtha RN, Elisabeth Owens Unavailable [phone] Mo TODD, Erik Unavailable Josefina TODD, Concha Unavailable Unavailable Dr. Flaquito Mariee Referring Provider Dr. Flaquito Mariee Other Provider Kori, Dr. Harvey Primary Care Provider Dr. Dwayne Garcia Attending Provider Dr. Christopher Bonilla Referring Provider Emiliano CLICKING MACHINE OPERATOR, CLICKING MACHINE OPERATOR-C Amy Attending Provider [phone] Dr. Abimael Evans Attending Provider [phone] Lilliana CLICKING MACHINE OPERATOR, CLICKING MACHINE OPERATOR-C Hima Attending Provider Dr. Christopher Bonilla Primary Care Provider Dr. Christopher Bonilla Referring Provider Dr. Flaquito Mariee Attending Provider Dr. Abimael Evans Attending Provider [phone] Nikunj MARKS, Santos Lubin Unavailable Flaquito Mariee Unavailable Anastasiya MARKS, Mera Unavailable Enrrique TODD, Jolene Mary Unavailable Unavailtrina Mariee MD, Flaquito Ramires Unavailable Kodi MARKS, Flaquito Ramires Unavailable Enrrique TODD, Jolene Mary Unavailable Unavailtrina Evans, Dr. Abimael Burgos Referring Provider Cristina, Dr. Abimael Burgos Other Provider Josefina TODD, Concha Unavailable Unavailable Mirtha TODD, Elisabeth Owens Unavailable Corina MARKS, Junaid Crane Unavailable Kori, Dr. Harvey Primary Care Provider Kori, Dr. Harvey Referring Provider Cebul, Dr. Abimael Burgos Attending Provider Cebuemma, Dr. Abimael Burgos Other Provider Kori, Dr. Harvey Primary Care Provider Kori, Dr. Harvey Referring Provider Cebuemma, Dr. Abimael Burgos Attending Provider Christopher Bonilla MD Primary Care Provider [phone] Mo TODD, Erik Unavailable Haagen CHIPPER MACHINE OPERATOR.Dalila CLARKE Unavailable Suppan CHIPPER MACHINE OPERATOR.EXTERNAL GRINDER TOOL, Mimi A Unavailable [phone] Suppan CHIPPER MACHINE OPERATOR.EXTERNAL GRINDER TOOL, Mimi A Unavailable Suppan CHIPPER MACHINE OPERATOR.EXTERNAL GRINDER TOOL, Mimi A Unavailable [phone] Dr. Christopher Bonilla MD Primary Care Provider Dr. Christopher Bonilla MD Referring Provider Hima Thomas Attending Provider Hima Thomas Referring Provider Mimi Alvares Attending Provider Mimi Alvares Referring Provider Hima Thomas Other Provider Dr. Pablo Watson DO Referring Provider [facility] hospitalberry[facility] SCHMITZ, Dr. Shah Emergency Provider [facility]xico[facility]ida SCHMITZ, Dr. Shah Attending Provider Mohinder MARKS, Dr. Martinez Emergency Provider Anh SCHMITZ, Dr. Palacios Admit Provider Anh SCHMITZ, Dr. Palacios Attending Provider Anh SCHMITZ, Dr. Palacios Other Provider Katerina MARKS, Dr. Christine Cox Attending Provider Katerina MARKS, Dr. Christine Cox Other Provider [phone] Kori MARKS, Dr. Harvey Primary Care Physician Lilliana CLICKING MACHINE OPERATOR-CHima Attending Physician Suppan SENIOR DATABASE ADMINISTRATOR, Mimi Attending Physician Lilliana CLICKING MACHINE OPERATOR-CHima Nurse Practitioner Waletr SCHMITZ, Dr. Shah Attending Physician [facility]advanced [facility]xicoZahida SCHMITZ, Dr. Shah Emergency Departmen t Physician Mohinder MARKS, Dr. Martinez Emergency Department Physici an Anh SCHMITZ, Dr. Palacios Admitting Physician Anh SCHMITZ, Dr. Palacios Nurse Practitioner Katerina MARKS, Dr. Christine Cox Attending Physician Katerina MARKS, Dr. Christine Cox Nurse Practitioner John Saleh Attending Physician [phone] John Saleh Referring Provider [phone] PHYSICIAN, NONE Attending Unavailable PHYSICIAN, NONE Primary Care Unavailable La Joya, Christopher Primary Care Unavailable La Joya, Christopher Referring Unavailable Yanely Correa Attending Unavail able La Joya, Christopher Primary Care Unavailable La Joya, Christopher Referring Unavailable Hima Tijerina NP Attending Unavailable Bony Farah Referring Unavailable Bony Farah Attending Unavailable La Joya, Christopher Primary Care Unavailable Dwayne Garcia Attending Unavailable Kori, Christopher Primary Care Unavailable Lilliana CHRISTINA, Hima Referring Unavailable Anh, Philip Consulting Unavailable Mostfarzana, Philip Attending Unavailable Kori, Christopher Primary Care Unavailable Anh, Philip Admitting Unavailable Katerina, Christine Cox Attending Unavailable Katerina, Christine Cox Consulting Unavailable Kiket, Pablo Referring Unavailabl e Klpablo-Zahida, Pablo Attending Unavailabl e La Joya, Christopher Primary Care Unavailable Mosteller, Philip Admitting Unavailable Koram, Christine Cox Attending Unavailable Mosteller, Philip Consulting Unavailable Kori, Christopher Primary Care Unavailable Mimi Encinas Referring Unavailable SuppMimi galdamez Attending Unavailable Kori, Christopher Primary Care Unavailable Lilliana CLICKING MACHINE OPERATOR, Hima Consulting Unavailable Lilliana CLICKING MACHINE OPERATOR, Hima Attending Unavailable Oj Lorenzo Attending Unavailable Collin, Ant Admitting Unavailable La Joya, Christopher Primary Care Unavailable Azouz, Samer Consulting Unavailable Collin, Ant Consulting Unavailable Demiter, John Referring Unavailable DemiterRegisJohn Attending Unavailable La Joya, Christopher Primary Care Unavailable Demiter, John Referring Unavailable Demiter John Attending Unavailable La Joya, Christopher Primary Care Unavailable DemiterRegisJohn Attending Unavailable La Joya, Christopher Referring Unavailable La Joya, Christopher Primary Care Unavailable Kori, Christopher Primary Care Unavailable Collin, Ant Attending Unavailable Azouz, Samer Consulting Unavailable Bony Meza Attending Unavailable Kori, Christopher Primary Care Unavailable Collin, Ant Admitting Unavailable Azouz, Samer Consulting Unavailable Collin, Ant Consulting Unavailable Oj Lorenzo Consulting Unavailable Oj Lorenzo Attending Unavailable KORI, CHRISTOPHER J Primary Care Unavailable KORI, CHRISTOPHER J Referring Unavailable KORI, CHRISTOPHER J Primary Care Unavailable KORI, CHRISTOPHER J Referring Unavailable KORI, CHRISTOPHER J Primary Care Unavailable KORI, CHRISTOPHER J Primary Care Unavailable CHANNING LIZARRAGA Attending Unavailable KORI, CHRISTOPHER J Primary Care Unavailable KORI, CHRISTOPHER J Primary Care Unavailable DALILA JENSEN Attending Unavailable KORI, CHRISTOPHER J Primary Care Unavailable KORI, CHRISTOPHER J Primary Care Unavailable KORI, CHRISTOPHER J Primary Care Unavailable KORI, CHRISTOPHER J Primary Care Unavailable KORI, CHRISTOPHER J Primary Care Unavailable MIMI ENCINAS Attending Unavailable KORI, CHRISTOPHER J Primary Care Unavailable KORI, CHRISTOPHER J Primary Care Unavailable KORI, CHRISTOPHER J Primary Care Unavailable KORI, CHRISTOPHER J Primary Care Unavailable KORI, CHRISTOPHER J Primary Care Unavailable KORI, CHRISTOPHER J Primary Care Unavailable KORI, CHRISTOPHER J Attending Unavailable CHRISTOPHER BONILLA Primary Care Unavailable CHRISTOPHER BONILLA Referring Unavailable CHRISTOPHER BONILLA Primary Care Unavailable CHRISTOPHER BONILLA Primary Care Unavailable Allergies Allergy Classification Reported Allergen(s) Allergy Type Date of Onset Reaction(s) Facility HMG-CoA Reductase Inhibitors (statins) (1 source) rosuvastatin Drug Allergy 1 Other: See Comments [facility] Work Phone: Latex (1 source) Latex Substance Allergy 9 Rash [facility] NSAIDs (1 source) Ibuprofen Drug Allergy 9 Other: See Comments [facility] Streptococcus pneumoniae serotype 1 capsular antigen diphtheria [id number] protein conjugate vaccine / Streptococcus pneumoniae serotype 14 capsular antigen diphtheria [id number] protein conjugate vaccine / Streptococcus pneumoniae serotype 18C capsular antigen diphtheria QUW062 protein conjugate vaccine / Streptococcus pneumoniae serotype 19A capsular antigen diphtheria THM998 protein conjugate vaccine / Streptococcus pneumoniae serotype 19F capsular antigen diphtheria [id number] protein conjugate vaccine / Streptococcus pneumoniae serotype 23F capsular antigen diphtheria YYN798 protein conjugate vaccine / Streptococcus pneumoniae serotype 3 capsular antigen diphtheria VMZ920 protein conjugate vaccine / Streptococcus pneumoniae serotype 4 capsular antigen diphtheria NDV508 protein conjugate vaccine / Streptococcus pneumoniae serotype 5 capsular antigen diphtheria ETY957 protein conjugate vaccine / Streptococcus pneumoniae serotype 6A capsular antigen diphtheria HWL029 protein conjugate vaccine / Streptococcus pneumoniae serotype 6B capsular antigen diphtheria VHE280 protein conjugate vaccine / Streptococcus pneumoniae serotype 7F capsular antigen diphtheria [id number] protein conjugate vaccine / Streptococcus pneumoniae serotype 9V capsular antigen diphtheria JLW285 protein conjugate vaccine (1 source) Streptococcus pneumoniae serotype 1 capsular antigen diphtheria YQO635 protein conjugate vaccine / Streptococcus pneumoniae serotype 14 capsular antigen diphtheria SRW286 protein conjugate vaccine / Streptococcus pneumoniae serotype 18C capsular antigen diphtheria NYA848 protein conjugate vaccine / Streptococcus pneumoniae serotype 19A capsular antigen diphtheria INC925 protein conjugate vaccine / Streptococcus pneumoniae serotype 19F capsular antigen diphtheria CLE167 protein conjugate vaccine / Streptococcus pneumoniae serotype 23F capsular antigen diphtheria RWL423 protein conjugate vaccine / Streptococcus pneumoniae serotype 3 capsular antigen diphtheria YSH156 protein conjugate vaccine / Streptococcus pneumoniae serotype 4 capsular antigen diphtheria QQN568 protein conjugate vaccine / Streptococcus pneumoniae serotype 5 capsular antigen diphtheria XHD990 protein conjugate vaccine / Streptococcus pneumoniae serotype 6A capsular antigen diphtheria OGU918 protein conjugate vaccine / Streptococcus pneumoniae serotype 6B capsular antigen diphtheria CHJ850 protein conjugate vaccine / Streptococcus pneumoniae serotype 7F capsular antigen diphtheria ZJE038 protein conjugate vaccine / Streptococcus pneumoniae serotype 9V capsular antigen diphtheria VHD055 protein conjugate vaccine Drug Allergy 6 [facility] (20 sources) ibuprofen; 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: [IBUPROFEN] Drug Allergy 9 Other: See Comments [facility] (20 sources) Latex; 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: [LATEX] Propensity to adverse reactions (disorder) 9 Rash [facility] (20 sources) rosuvastatin; 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: [ROSUVASTATIN CALCIUM] Drug Allergy 1 Other: See Comments [facility] (20 sources) PNEUMOC 13-CHELY CONJ-DIP CR(PF); 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: [PNEUMOC 13-CHELY CONJ-DIP CR(PF)] Propensity to adverse reactions (disorder) 6 [facility] (20 sources) natural latex rubber; 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: [Latex, Natural Rubber] Allergy to substance 2 [facility] (20 sources) Pneumococcal vaccine Drug Allergy 2 [facility] (13 sources) atorvastatin; 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: [ATORVASTATIN] Drug Allergy 5 Other: See Comments, Myalgia [facility] (1 source) Pneumococcal vaccine Drug Allergy 5 [facility] Rep[facility] Medications Current Medications Medication Drug Class(es) Dates Sig (Normalized) Sig (Original) [id number] 200 actuat albuterol 0.09 mg/actuat metered dose inhaler (20 sources) beta2-Adrenergic Agonist Start: 07-10-2023 End: 02-05-2025 take 2 puff(s) by inhalation every four hours as needed for wheezing albuterol HFA (PROVENTIL HFA, VENTOLIN HFA) 90 mcg/actuation inhaler Indications: Pulmonary emphysema, unspecified emphysema type (HCC) Inhale 2 puffs as instructed every 4 hours as needed for wheezing/shortness of breath. 8.5 g 2 02/05/2025 Active Start: 05-05-2020 End: 07-10-2023 albuterol HFA (PROVENTIL HFA , VENTOLIN HFA) 90 mcg/actuation inhaler [The details of the medication are not available because there are pending changes by a home health clinician.] 1 g 1 05/05/2020 07/10/2023 Discontinued Start: 05-05-2020 take 2 puff(s) by in halation every four hours as needed albuterol HFA (PROVENTIL HFA, VENTOLIN HFA) 90 mcg/actuation inhaler Inhale 2 Puffs as instructed every 4 hours as needed. 1 g 1 05/05/2020 Active Start: 01-09-2020 Start: 01-09-2020 take 1 puff(s) by in halation every four hours Albuterol Sulfate Active 2 PUFF INHALATION Q4H January 08, 2020 11:00pm Start: 02-12-2019 End: 05-05-2020 take 2 puff(s) by inhalation every four hours as needed albuterol HFA (PROVENTIL HFA, VENTOLIN HFA) 90 mcg/actuation inhaler Inhale 2 Puffs as instructed every 4 hours as needed. 1 Inhaler 5 02/12/2019 05/05/2020 Discontinued Comment on above: Inhale 2 Puffs as in structed every 4 hours as needed. [The details of the medication are not available because there are pending changes by a home health clinician.] Inhale 2 Puffs as in structed every 4 hours as needed for wheezing/shortness of breath. amiodarone hydrochloride 200 mg oral tablet (20 sources) Antiarrhythmic Start: 02-20-2025 End: 02-24-2025 Start: 02-06-2022 take 0.5 tablet by m outh once daily amiodarone (PACERONE) 200 mg tablet Take 0.5 tablets by mouth once daily. 02/06/2022 Active Start: 11-08-2021 End: 01-25-2025 Amiodarone 200 mg tablet Discontinued 100 mg PO DAILY 45 3 January 24, 2025 4:38pm January 25, 2025 1:35pm Start: 11-08-2021 End: 02-22-2023 take 100 mg by mouth once daily Amiodarone Discontinue d 100 MG PO DAILY 45 July 18, 2022 2:54pm February 22, 2023 3:55pm Start: 07-30-2021 End: 02-06-2022 take 1 tablet by mouth once daily Amiodarone 200 mg tablet Discontinued 200 mg PO DAILY 90 3 September 10, 2021 2:44pm November 08, 2021 2:54pm Start: 07-22-2021 End: 07-30-2021 Amiodarone 200 mg Tablet Discontinued 200 mg PO TWICE A DAY 60 0 July 22, 2021 1:00am July 30, 2021 10:05am 1 tab BID for 1 week, then daily thereafter. Comment on above: Take 1 tablet by carly th once daily. Take 0.5 tablets by mouth once daily. Back Brace misc (20 sources) Start: 07-21-2022 Back Brace misc Indications: Pathological fracture, other site, initial encounter for fracture 1 Each once daily. Custom made 1 Each 07/21/2022 Active Start: 07-21-2022 Back Brace mis c Indications: Pathological fracture, other site, initial encounter for fracture 1 Each once daily. Custom made 1 Each 0 07/21/2022 Active Comment on above: 1 Each once daily. C ustom made Calcium Carbonate (20 sources) Start: 02-09-2022 take 1 tablet by mouth once daily CALCIUM CARBONATE (CALCIUM 600 ORAL) Take 1 tablet by mouth once daily. 02/09/2022 Active Start: 02-09-2022 take 1 tablet by carly th once daily CALCIUM CARBONATE (CALCIUM 600 ORAL) Take 1 tablet by mouth once daily. 0 02/09/2022 Active Start: 02-09-2022 CALCIUM CARBON ATE (CALCIUM 600 ORAL) [The details of the medication are not available because there are pending changes by a home health clinician.] 0 02/09/2022 Active Start: 06-19-2019 take 1 tablet by carly th once daily CALCIUM CARBONAT E (CALCIUM 600 ORAL) Take by mouth. 0 Suspended CALCIUM CARBONAT E (CALCIUM 600 ORAL) Take by mouth. 0 Active Comment on above: Take by mouth. [The details of the medication are not available because there are pending changes by a home health clinician.] Take 1 tablet by carly th once daily. 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 20 tablet 0 07/10/2023 07/20/2023 Active Start: 05-24-2019 End: 05-29-2019 take 1 tablet by mouth twice daily Doxycycline Monohydrate 100 MG tablet Discontinued 100 mg PO TWICE A DAY May 24, 2019 1:00am May 29, 2019 1:13pm Comment on above: Take 1 tablet by carly th two times a day for 10 days. ferrous fumarate 324 mg oral tablet (1 source) Start: 3 take 324 mg by mouth once daily Ferrous Fumarate Active 324 MG PO DAILY November 29, 2022 12:00am ferrous sulfate 325 mg oral tablet (3 sources) Start: 3 End: 3 take 1 tablet by mouth once daily ferrous sulfate 325 mg (65 mg iron) tablet Indications: Iron deficiency Take 1 tablet by mouth once daily. 30 tablet 5 11/09/2022 05/08/2023 Active Comment on above: Take 1 tablet by carly once daily. fluticasone propionate 0.05 mg/actuat metered dose nasal spray (3 sources) Corticosteroid Start: 5 furosemide 40 mg oral tablet (20 sources) Loop Diuretic Start: 5 End: 5 Start: 12-05-2024 End: 12-13-2025 take 1 tablet by mouth once daily as needed Furosemide 40 mg tablet Discontinued 40 mg PO daily as needed for diuretic December 05, 2024 3:22pm January 25, 2025 1:36pm Start: 03-09-2022 End: 06-27-2022 take 2 tablets by mouth twice daily Furosemide 40 mg tablet Discontinued 80 mg PO TWICE A DAY 360 4 March 09, 2022 9:35am June 27, 2022 4:33pm FLUID Start: 03-09-2022 End: 06-27-2022 take 80 mg by mouth twice daily Furosemide Discontinue d 80 MG PO TWICE A DAY 360 March 09, 2022 8:35am June 27, 2022 3:33pm Start: 11-19-2019 End: 12-13-2024 take 1 tablet by mouth twice daily Furosemide 40 mg tablet Discontinued 40 mg PO TWICE A DAY 180 3 May 01, 2024 9:04am December 05, 2024 3:22pm Start: 08-05-2019 End: 11-22-2019 take 1 tablet by mouth once daily Furosemide 40 mg tablet Discontinued 40 mg PO DAILY 90 October 30, 2019 9:48am November 22, 2019 3:10pm Start: 06-12-2019 End: 08-05-2019 take 2 tablets by mouth once daily Furosemide 20 mg tablet Discontinued 40 mg PO DAILY 1 June 12, 2019 1:00am August 05, 2019 4:18pm Start: 06-12-2019 End: 08-05-2019 take 40 mg by mouth once daily Furosemide Discontinued 40 MG PO DAILY June 12, 2019 12:00am August 05, 2019 3:18pm Start: 05-24-2019 End: 05-29-2019 take 1 tablet by mouth once daily Furosemide 20 MG tablet Discontinued 20 mg PO DAILY May 24, 2019 1:00am May 29, 2019 1:14pm Comment on above: Take 1 tablet by carly th twice daily. gabapentin 100 mg oral capsule (20 sources) Anti-epileptic Agent Start: 06-09-2023 End: 07-13-2024 take 1 capsule by mouth twice daily gabapentin (NEURONTIN) 100 mg capsule Indications: Compression deformity of vertebra Take 1 capsule by mouth two times a day for 180 days. 180 capsule 1 01/15/2024 Active Start: 09-22-2022 End: 03-21-2023 take 1 capsule by mouth twice daily gabapentin (NEURONTIN) 100 mg capsule Indications: Compression deformity of vertebra Take 1 capsule by mouth twice daily for 180 days. 180 capsule 1 09/22/2022 Active Start: 09-19-2022 End: 12-18-2022 take 1 capsule by mouth three times daily gabapentin (NEURONTIN) 100 mg capsule Indications: Compression deformity of vertebra Take 1 capsule by mouth three times daily for 90 days. 90 capsule 2 09/19/2022 09/22/2022 Discontinued Start: 08-29-2022 End: 11-27-2022 take 1 capsule by mouth once daily at bedtime gabapentin (NEURONTIN) 100 mg capsule Indications: Compression deformity of vertebra Take 1 capsule by mouth daily at bedtime for 90 days. 30 capsule 2 08/29/2022 09/19/2022 Discontinued Comment on above: Take 1 capsule by mo ut daily at bedtime for 90 days. Take 1 capsule by mo ut three times daily for 90 days. Take 1 capsule by mo ut twice daily for 180 days. Take 1 capsule by mo ut two times a day for 180 days. Handicap placard (20 sources) Start: 01-07-[address] Active January 07, 2020 11:39am Lifetime handicap placard Start: 01-07-2020 End: 01-07-2025 Handicap placard Discontinue d 1 January 07, 2020 12:00am January 06, 2025 12:00am January 07, 2025 12:08am COPD, pulmonary hypertension,Marfan syndrome Lifetime handicap placard Start: 01-07-[address] Active 1 January 07, 2020 12:00am January 06, 2025 12:00am COPD, pulmonary hypertension,Marfan syndrome Lifetime handicap placard Start: 01-07-[address] Active January 06, 2020 11:00pm Lifetime handicap placard Start: 01-07-[address] Active January 07, 2020 12:00am Lifetime handicap placard lidocaine 0.05 mg/mg medicated patch (6 sources) Antiarrhythmic, Amide Local Anesthetic Start: 06-29-2022 End: 07-13-2022 lidocaine (LIDODERM) 5 % Indications: Upper back pain Apply 2 Patches as directed once daily for 14 days. Remove old patch prior to placing new patch. Location: both sides of back. Leave on for 12 hours then take off for 12 hours 28 Patch 0 06/29/2022 07/13/2022 Active Comment on above: Apply 2 Patches as d irected once daily for 14 days. Remove old patch prior to placing new patch. Location: both sides of back. Leave on for 12 hours then take off for 12 hours Apply 2 Patches as d irected once daily for 14 days. Remove old patch prior to placing new patch. Location: both sides of back metoprolol tartrate 50 mg oral tablet (20 sources) beta-Adrenergic Barber Start: 03-04-2025 take 1 tablet by mouth twice daily Start: 12-13-2024 End: 12-13-2025 take 1 tablet by mouth twice daily Metoprolol Tartrate 25 mg tablet Discontinued 25 mg PO TWICE A DAY January 22, 2025 12:00am March 04, 2025 3:43pm Start: 08-24-2023 End: 08-24-2023 Metoprolol Tartrate 100 mg t ablet Discontinued 50 mg PO DAILY August 24, 2023 2:44pm August 24, 2023 3:21pm Start: 03-08-2022 End: 12-13-2024 take 1 tablet by mouth twice daily Metoprolol Tartrate 50 mg tablet Active 50 mg PO TWICE A DAY December 05, 2024 12:00am Start: 01-14-2022 take 0.5 tablet by m outh twice daily metoprolol tartrate, short acting, (LOPRESSOR) 100 mg tablet Take 0.5 tablets by mouth twice daily. 180 tablet 3 01/14/2022 Active Start: 12-01-2021 End: 12-05-2024 take 1 tablet by mouth once daily Metoprolol Tartrate 100 mg tablet Discontinued 100 mg PO DAILY 90 3 July 25, 2022 2:25pm August 24, 2023 2:45pm Start: 11-08-2021 End: 12-01-2021 Metoprolol Tartrate 100 mg t ablet Discontinued 50 mg PO TWICE A DAY 60 November 08, 2021 3:15pm December 01, 2021 10:31am Start: 11-08-2021 End: 12-01-2021 take 50 mg by mouth twice daily Metoprolol Tartrate Di scontinued 50 MG PO TWICE A DAY 60 November 08, 2021 2:15pm December 01, 2021 9:31am Start: 07-22-2021 End: 01-14-2022 take 1 tablet by mouth twice daily Metoprolol Tartrate 100 mg tablet Discontinued 100 mg PO TWICE A DAY 60 August 16, 2021 3:22pm November 08, 2021 3:22pm Start: 07-09-2021 End: 07-22-2021 Metoprolol Tartrate 50 mg ta blet Discontinued 75 mg PO TWICE A DAY July 14, 2021 4:27pm July 22, 2021 12:09pm HR Start: 07-09-2021 End: 07-22-2021 take 75 mg by mouth twice daily Metoprolol Tartrate Di scontinued 75 MG PO TWICE A DAY July 14, 2021 3:27pm July 22, 2021 11:09am Start: 06-23-2021 End: 07-28-2021 take 1 tablet by mouth twice daily Metoprolol Tartrate 50 mg Tablet Discontinued 50 mg PO TWICE A DAY 60 0 June 23, 2021 1:00am July 09, 2021 1:00pm Comment on above: Take 1 tablet by carly th twice daily. Take 0.5 tablets by mouth twice daily. Take 1 tablet by carly th two times a day. MULTIVITAMIN ORAL (20 sources) Start: 02-09-2022 take 1 tablet by mouth once daily MULTIVITAMIN ORAL Take 1 tablet by mouth once daily. 02/09/2022 Active Start: 02-09-2022 take 1 tablet by carly th once daily MULTIVITAMIN ORAL Take 1 tablet by mouth once daily. 0 02/09/2022 Active Start: 02-09-2022 MULTIVITAMIN O RAL [The details of the medication are not available because there are pending changes by a home health clinician.] 0 02/09/2022 Active MULTIVITAMIN ORA L Take by mouth. 0 Suspended MULTIVITAMIN ORA L Take by mouth. 0 Active Comment on above: Take by mouth. [The details of the medication are not available because there are pending changes by a home health clinician.] Take 1 tablet by carly th once daily. Multivitamin preparation (15 sources) Start: 0 take 1 tablet by mouth once daily Multivitamin Active 1 TABLET PO DAILY June 19, 2019 2:13pm Start: 06-19-2019 take 1 tablet by carly th once daily Multivitamin Active 1 TABLET PO DAILY June 19, 2019 12:00am Start: 06-19-2019 take 1 tablet by carly th once daily Multivitamin Active 1 TABLET PO DAILY June 19, 2019 1:00am Multivitamin tablet (8 sources) Start: 06-19-2019 Start: 06-19-2019 Multivitamin t ablet Active 1 {tbl} PO DAILY June 19, 2019 1:00am SUPPLEMENT omeprazole 20 mg delayed release oral capsule (20 sources) Proton Pump Inhibitor Start: 12-05-2024 End: 12-13-2025 take 1 capsule by mouth twice daily Start: 10-19-2014 End: 02-15-2025 take 1 capsule by mouth once daily Omeprazole 40 MG capsule Discontinued 40 mg PO DAILY October 19, 2014 12:00am December 05, 2024 3:05pm GERD Start: 01-03-2014 End: 01-05-2014 take 1 capsule by mouth once daily Omeprazole 10 MG capsule Discontinued 10 mg PO DAILY January 03, 2014 12:00am January 05, 2014 11:14am Comment on above: Take 1 capsule by mo [facility] once daily. spironolactone 25 mg oral tablet (2 sources) Aldosterone Antagonist Start: 03-04-20 take 1 tablet by mouth once daily valACYclovir 1000 mg oral tablet (5 sources) Herpesvirus Nucleoside Analog DNA Polymerase Inhibitor, Herpes Simplex Virus Nucleoside Analog DNA Polymerase Inhibitor, Herpes Zoster Virus Nucleoside Analog DNA Polymerase Inhibitor Start: 01-14-20 End: 01-21-20 take 1 tablet by mouth twice daily valACYclovir (VALTREX) 1 gram Indications: Herpes zoster without complication Take 1 tablet by mouth twice daily for 7 days. 14 tablet 0 01/13/2023 01/20/2023 Active Comment on above: Take [address] [facility] twice daily for 7 days. WALKER ROLLATOR SEAT WITH 6" WHEELS - RED (20 sources) Start: 07-23-19 WALKER ROLLATOR SEAT WITH 6" WHEELS - RED Indications: Gait instability Daily use R26.81 Gait instability (primary encounter diagnosis) 1 Each 07/23/2021 Active Start: 07-23-2021 WALKER ROLLATO R SEAT WITH 6" WHEELS - RED Indications: Gait instability Daily use R26.81 Gait instability (primary encounter diagnosis) 1 Each 0 07/23/2021 Suspended Start: 07-23-2021 WALKER ROLLATO R SEAT WITH 6" WHEELS - RED Indications: Gait instability Daily use R26.81 Gait instability (primary encounter diagnosis) 1 Each 0 07/23/2021 Active Comment on above: Daily use R26.81 Gait instability (primary encounter diagnosis) warfarin sodium 2 mg oral tablet (20 sources) Vitamin K Antagonist Start: 10-03-2024 Start: 05-31-2024 Start: 02-27-2024 End: 03-28-2024 warfarin (COUMADIN) 3 mg tab let 2mg Mon Mon and 3mg all other days or as directed 30 tablet 11 03/28/2024 Active Start: 02-27-2024 warfarin (COUM RICHIE) 4 mg tablet 2mg Mon and 3mg all other days or as directed 90 tablet 3 02/27/2024 Active Start: 03-08-2023 End: 02-27-2024 take 1 tablet by mouth once daily warfarin (COUMADIN) 3 mg tablet Indications: Paroxysmal atrial fibrillation (HCC) Take 1 tablet by mouth daily as directed. 30 tablet 2 05/31/2024 Active Start: 12-20-2021 End: 10-13-2022 warfarin (COUMADIN) 4 mg tab let [The details of the medication are not available because there are pending changes by a home health clinician.] 90 tablet 3 02/15/2022 10/13/2022 Discontinued Start: 03-01-2021 End: 06-30-2021 warfarin (COUMADIN) 4 mg tab let 2 mg on MW, 4 mg all other days or as directed 90 tablet 3 03/01/2021 06/30/2021 Discontinued (Adjust Sig - Block E-Cancel) Start: 01-07-2020 End: 07-22-2021 take 2 mg by mouth once Warfarin 4 mg tablet Discont inued 2 mg PO every Monday, , , Sat January 07, 2020 11:29am July 22, 2021 12:11pm afib Managed by PCP Start: 01-07-2020 End: 07-22-2021 take 2 mg by mouth once Warfarin Discontinued 2 MG P O every Monday, , , Sat January 07, 2020 10:29am July 22, 2021 11:11am Managed by PCP Start: 05-24-2019 End: 12-05-2024 Warfarin 4 mg tablet Discont inued 0 PO .COMPLEX 60 3 July 18, 2022 3:55pm December 05, 2024 3:06pm AFIB 4mg PO Mon & Fri, 2mg PO all other days Start: 05-24-2019 End: 01-07-2020 Warfarin Discontinued 2 MG P O MOFR May 24, 2019 12:00am January 07, 2020 10:29am Start: 03-06-2019 End: 12-23-2020 Warfarin 4 MG tablet Discont inued 2 mg PO MOFR May 24, 2019 1:00am January 07, 2020 11:29am afib Start: 12-04-2018 End: 12-23-2020 warfarin (COUMADIN) 5 mg tab let 2 mg on MW, 4 mg all other days or as directed 90 tablet 3 12/04/2018 12/23/2020 Discontinued (Duplicate Entry) Comment on above: 4 mg on MWF, 2 mg al l other days or as directed 4 mg on /F, 2 mg al l other days or as directed [The details of the medication are not available because there are pending changes by a home health clinician.] 4 mg on , , , 2 m g all other days. 4 mg on Monday and , 2 mg all other days Take 1 tablet by carly th daily as directed. 4 mg Mon,Mon,Mon and 2 mg all other days or as directed pending blood results Completed/Discontinued Medications Medication Drug Class(es) Dates Sig (Normalized) Sig (Original) acetaminophen 325 mg oral tablet (20 sources) Start: 05-29-2019 End: 01-09-2020 Acetaminophen 325 MG tablet Discontinued 650 mg PO EVERY 6 HOURS NEEDED as needed for Pain Score 1-3/Temp > 100.7 F 0 May 29, 2019 1:00am January 09, 2020 8:10am Start: 05-29-2019 End: 01-09-2020 take 650 mg by mouth every six hours as needed Acetaminophen Discontinued 650 MG PO EVERY 6 HOURS NEEDED May 29, 2019 12:00am January 09, 2020 7:10am amoxicillin 875 mg / clavulanate 125 mg oral tablet (9 sources) Penicillin-class Antibacterial Start: 02-06-2022 End: 02-11-2022 take 1 tablet by mouth every twelve hours amoxicillin-clavulanic acid (AUGMENTIN) 875-125 mg per tablet Take 1 tablet by mouth every 12 hours for 9 doses. 9 tablet 0 02/06/2022 02/11/2022 Comment on above: Take 1 tablet by mouth every 12 hours fo r 9 doses. aspirin 81 mg chewable tablet (20 sources) Platelet Aggregation Inhibitor, Nonsteroidal Anti-inflammatory Drug Start: 10-19-2014 End: 10-20-2014 take 1 tablet by mouth once daily Aspirin 81 MG Tab.Chew Discontinued 81 mg PO DAILY@0800 October 19, 2014 12:00am October 20, 2014 11:32am atenolol 100 mg oral tablet (20 sources) beta-Adrenergic Barber Start: 06-10-2019 End: 05-11-2021 take 4 tablets by mouth twice daily atenolol (TENORMIN) 25 mg tablet Take 4 tablets by mouth twice daily. 06/10/2019 05/11/2021 Discontinued (Course of therapy completed) Start: 05-29-2019 End: 06-30-2021 Atenolol 100 mg tablet Disco ntinued 0 .ROUTE .COMPLEX 90 3 January 22, 2021 8:49am April 26, 2021 9:24pm TAKE 1 TABLET EVERY DAY Start: 01-05-2014 End: 05-29-2019 take 1 tablet by mouth twice daily Atenolol 25 MG tablet Discontinued 25 mg PO TWICE A DAY 60 0 January 05, 2014 12:00am May 29, 2019 1:13pm Start: 01-03-2014 End: 01-05-2014 take 1 tablet by mouth once daily Atenolol 25 MG tablet Discontinued 25 mg PO DAILY January 03, 2014 12:00am January 05, 2014 11:13am atorvastatin 20 mg oral tablet (15 sources) HMG-CoA Reductase Inhibitor Start: 06-03-2024 End: 06-03-2025 take 1 tablet by mouth once daily atorvastatin (LIPITOR) 20 mg tablet Indications: Hyperlipidemia, unspecified hyperlipidemia type Take 1 tablet by mouth once daily. 90 tablet 3 06/03/2024 12/13/2024 Discontinued (Allergic response) 24 hr dilTIAZem hydrochloride 240 mg extended release oral capsule (20 sources) Calcium Channel Barber Start: 06-10-2019 End: 02-03-2022 take 2 capsules by mouth once daily diltiazem CD (CARTIA XT) 120 mg 24 hr capsule Take 2 capsules by mouth once daily. 06/10/2019 02/03/2022 Discontinued (Changing Therapy/Dosage Form) Start: 05-29-2019 End: 03-04-2025 take 1 capsule by mouth once daily Diltiazem Hcl 240 mg capsule,extended release 24hr Discontinued 240 mg PO DAILY 90 3 January 24, 2025 4:38pm March 04, 2025 3:37pm HEART TAKE 1 CAPSULE EVERY DAY Start: 10-20-2014 End: 05-29-2019 take 1 capsule by mouth once daily Diltiazem Hcl 120 mg capsule,extended release 24hr Discontinued 120 mg PO DAILY 90 1 February 05, 2019 5:22pm May 29, 2019 1:13pm Comment on above: Take 2 capsules by m outh once daily. Take 240 mg by mouth once daily. 0.6 ml enoxaparin sodium 100 mg/ml prefilled syringe (20 sources) Low Molecular Weight Heparin Start: 2021 End: 2021 Enoxaparin 60 mg/0.6 mL Syringe Discontinued 50 mg SC Q12@0600,1800 6 0 July 22, 2021 1:00am August 16, 2021 3:10pm flecainide acetate 50 mg oral tablet (20 sources) Antiarrhythmic Start: 2018 End: 2018 take 1 tablet by mouth twice daily Flecainide 50 MG tablet Discontinued 50 mg PO TWICE A DAY May 24, 2019 1:00am May 29, 2019 1:14pm metaxalone 400 mg oral tablet (20 sources) Start: 2022 End: 2022 take 1 tablet by mouth three times daily as needed Metaxalone 400 mg tab Indications: Upper back pain Take 1 tablet by mouth three times daily as needed. 20 tablet 07/14/2022 05/10/2023 Discontinued (Other) Comment on above: Take 1 tablet by carly three times daily as needed. methylPREDNISolone (19 sources) Corticosteroid Start: 2023 End: 2023 methylPREDNISolone (MEDROL DOSE-PACK) 4 mg Dose-Pack Indications: Pulmonary emphysema, unspecified emphysema type (HCC) Take medications as directed on packaging. Take with food. 21 tablet 0 07/10/2023 11/30/2023 Discontinued (Course of therapy completed) Start: 07-10-2023 methylPREDNISo lone (MEDROL DOSE-PACK) 4 mg Dose-Pack Indications: Pulmonary emphysema, unspecified emphysema type (HCC) Take medications as directed on packaging. Take with food. 21 tablet 0 07/10/2023 Active Start: 07-10-2023 End: 07-15-2023 methylPREDNISolone (MEDROL D OSE-PACK) 4 mg Dose-Pack Indications: Pulmonary emphysema, unspecified emphysema type (HCC) Take medications as directed on packaging. Take with food. 21 tablet 0 07/10/2023 07/15/2023 Active Comment on above: Take medications as directed on packaging. Take with food. microencapsulated potassium chloride 20 meq extended release oral tablet (20 sources) Start: 01-25-2025 End: 03-04-2025 Potassium Chloride (Klor-Con M20) 20 mEq tablet,ER particles/crystals Discontinued 20 meq PO DAILY 30 2 January 25, 2025 12:00am March 04, 2025 1:03pm Start: 03-09-2022 End: 06-27-2022 take 2 tablets by mouth twice daily Potassium Chloride 20 mEq tablet extended release Discontinued 40 meq PO TWICE A DAY 360 March 09, 2022 9:35am June 27, 2022 4:33pm Start: 03-09-2022 End: 06-27-2022 take 40 mEq by mouth twice daily Potassium Chloride Di scontinued 40 MEQ PO TWICE A DAY 360 March 09, 2022 8:35am June 27, 2022 3:33pm Start: 03-09-2022 End: 03-09-2022 take 2 tablets by mouth twice daily Potassium Chloride 20 mEq tablet,ER particles/crystals Discontinued 40 meq PO TWICE A DAY March 09, 2022 8:56am March 09, 2022 9:00am SUPPLEMENT Start: 03-09-2022 End: 03-09-2022 take 40 mEq by mouth twice daily Potassium Chloride Di scontinued 40 MEQ PO TWICE A DAY March 09, 2022 7:56am March 09, 2022 8:00am Start: 04-26-2021 End: 03-09-2022 take 1 tablet by mouth twice daily Potassium Chloride 20 mEq tablet,ER particles/crystals Discontinued 20 meq PO TWICE A DAY April 26, 2021 1:00am March 09, 2022 8:58am SUPPLEMENT Start: 03-27-2021 End: 12-05-2024 take 1 tablet by mouth twice daily Potassium Chloride 20 mEq tablet extended release Discontinued 20 meq PO TWICE A DAY 180 3 June 18, 2024 4:36pm December 05, 2024 3:22pm Start: 03-27-2021 End: 03-04-2025 take 1 tablet by mouth once daily Potassium Chloride 20 mEq tablet extended release Discontinued 20 meq PO daily December 05, 2024 3:22pm March 04, 2025 3:39pm Start: 03-18-2020 End: 06-02-2020 potassium chloride SR (MICRO -K) 10 mEq CR capsule Take 2 capsules by mouth twice daily. 03/18/2020 06/02/2020 Discontinued Start: 06-12-2019 End: 01-07-2020 take 2 capsules by mouth once daily Potassium Chloride 10 mEq capsule, extended release Discontinued 20 meq PO DAILY 180 3 October 30, 2019 9:48am January 07, 2020 11:29am Start: 06-12-2019 End: 01-07-2020 take 20 mEq by mouth once daily Potassium Chloride Dis continued 20 MEQ PO DAILY 180 October 30, 2019 8:48am January 07, 2020 10:29am Start: 05-24-2019 End: 05-29-2019 take 1 tablet by mouth once daily Potassium Chloride 10 MEQ tablet extended release Discontinued 10 meq PO DAILY May 24, 2019 1:00am May 29, 2019 1:13pm Comment on above: Take 1 tablet by carly twice daily. predniSONE 20 mg oral tablet (3 sources) Start: 5 End: 5 take 2 tablets by mouth once daily Prednisone 20 mg tablet Discontinued 40 mg PO DAILY 10 0 January 25, 2025 12:00am March 04, 2025 1:04pm salmon calcitonin 200 unt/actuat nasal spray (20 sources) Calcitonin Start: 3 End: 3 calcitonin,salmon, (MIACALCIN, FORTICAL) 200 unit/actuation nasal spray Use 1 [place] in the nose once daily. 6 mL 1 07/21/2022 05/10/2023 Discontinued (Other) Comment on above: Use 1 [place] in the n ose once daily. vitamin k1 5 mg oral tablet (3 sources) Warfarin Reversal Agent, Vitamin K Start: 3 End: 3 take 1 tablet by mouth once phytonadione, vitamin K1, (MEPHYTON) 5 mg tablet Take 1 tablet by mouth one time only for 1 dose. 1 tablet 0 05/01/2023 05/01/2023 Discontinued Comment on above: Take 1 tablet by carly one time only for 1 dose. Problems Active Problems Problem Classification Problem Date Documented Da te Episodic/Chronic Abdominal pain (3 sources) Epigastric pain; 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: [Epigastric pain] Onset: 5 Episodic Anxiety disorders (1 source) Mixed anxiety and depressive disorder; 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: [Other specified anxiety disorders] 11-30-2023 Chronic Bacterial infection; unspecified site (20 sources) Bacteremia caused by Gram-negative bacteria; 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: [Bacteremia] Onset: 2 Resolved: 3 Episodic Cardiac dysrhythmias (20 sources) Paroxysmal atrial fibrillation; 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: [Paroxysmal atrial fibrillation] Onset: 4 Resolved: 8 09-23-2020 Chronic Chronic kidney disease (20 sources) Chronic kidney disease stage 3; 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: [Stage 3 chronic kidney disease] Onset: 3 11-08-2022 Chronic Chronic kidney disease (1 source) Chronic kidney disease; 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: [Stage 3 chronic kidney disease, unspecified whether stage 3a or 3b CKD (HCC)] Onset: 3 Chronic obstructive pulmonary disease and bronchiectasis (20 sources) Centriacinar emphysema; 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: [Centrilobular emphysema] Onset: 4 Resolved: 3 03-23-2020 Chronic Coagulation and hemorrhagic disorders (1 source) Blood coagulation disorder; 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: [Coagulation defect, unspecified] 05-01-2023 Chronic Congestive heart failure; nonhypertensive (20 sources) Congestive heart failure; 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: [Heart failure, unspecified] Onset: 0 Resolved: 1 Chronic Deficiency and other anemia (1 source) Iron deficiency anemia due to blood loss; 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: [Iron deficiency anemia secondary to blood loss (chronic)] 12-13-2024 Chronic Deficiency and other anemia (1 source) Iron deficiency anemia secondary to blood loss (chronic); 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: [Iron deficiency anemia due to chronic blood loss] Onset: 3 Chronic Deficiency and other anemia (20 sources) Iron deficiency anemia; 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: [Iron deficiency anemia, unspecified] Onset: 3 11-29-2022 Episodic Deficiency and other anemia (4 sources) Iron deficiency anemia, unspecified; 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: [Iron deficiency anemia, unspecified] 11-29-2022 Episodic Diseases of white blood cells (20 sources) Leukocytosis; 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: [Elevated white blood cell count, unspecified] Onset: 2 Resolved: 3 Chronic Disorders of lipid metabolism (20 sources) Hyperlipidemia; 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: [Hyperlipidemia, unspecified] Onset: 1 05-31-2021 Chronic Esophageal disorders (20 sources) Gastroesophageal reflux disease; 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: [Gastro-esophageal reflux disease without esophagitis] Onset: 3 12-08-2008 Chronic Essential hypertension (20 sources) Essential (primary) hypertension; 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: [Essential hypertension] Onset: 1 Resolved: 6 09-23-2020 Chronic Fluid and electrolyte disorders (20 sources) Hyponatremia; 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: [Hypo-osmolality and hyponatremia] Onset: 2 Resolved: 3 Episodic Heart valve disorders (20 sources) Mitral valve regurgitation; 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: [Nonrheumatic mitral (valve) insufficiency] Onset: 2 06-18-2021 Chronic Hypertension with complications and secondary hypertension (1 source) Hypertensive heart disease with heart failure; 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: [Hypertensive heart disease with heart failure] Onset: 5 Chronic Nausea and vomiting (8 sources) Vomiting; 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: [Vomiting, unspecified] 01-22-2025 Episodic Other acquired deformities (7 sources) Compression fracture of vertebral column; 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: [Deforming dorsopathy, unspecified] Episodic Other aftercare (20 sources) Long-term current use of anticoagulant; 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: [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] Onset: 6 06-23-2015 Episodic Other aftercare (8 sources) Drug therapy finding; 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: [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] 03-09-2022 Episodic Other aftercare (17 sources) Long-term current use of amiodarone; 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: [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] 03-09-2022 Episodic Other aftercare (2 sources) 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; 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: [Other chcf (current) 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] Onset: 5 Episodic Other and unspecified benign neoplasm (1 source) History of polyp of colon; 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: [Personal history of colonic polyps] Episodic Other circulatory disease (1 source) Low blood pressure; 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: [Hypotension, unspecified] 12-13-2024 Episodic Other circulatory disease (8 sources) H/O: atrial fibrillation; 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: [Personal history of other diseases of the circulatory system] 01-22-2025 Episodic Other congenital anomalies (20 sources) Marfan's syndrome; 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: [Marfan's syndrome, unspecified] 12-08-2008 Chronic Other congenital anomalies (1 source) Marfan's syndrome, unspecified; 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: [Marfan's syndrome] Onset: Chronic Other diseases of kidney and ureters (2 sources) Renal mass; 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: [Other specified disorders of kidney and ureter] Chronic Other diseases of kidney and ureters (4 sources) Renal impairment; 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: [Disorder of kidney and ureter, unspecified] Episodic Other gastrointestinal disorders (2 sources) Swollen abdomen; 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: [Generalized intra-abdominal and pelvic swelling, mass and lump] Episodic Other gastrointestinal disorders (20 sources) Abdominal bloating; 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: [Abdominal distension (gaseous)] Onset: 3 Resolved: 4 Episodic Other gastrointestinal disorders (2 sources) Abdominal distension (gaseous); 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: [Flatulence, eructation, and gas pain] 12-22-2022 Episodic Other gastrointestinal disorders (5 sources) Diarrhea; 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: [Diarrhea, unspecified] 01-02-2025 Episodic Other hematologic conditions (1 source) Microcytosis; 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: [Other abnormality of red blood cells] Episodic Other liver diseases (20 sources) Chronic passive congestion of liver; 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: [Chronic passive congestion of liver] Onset: 2 Resolved: 3 09-19-2022 Chronic Other liver diseases (20 sources) Elevated liver enzymes level; 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: [Abnormal levels of other serum enzymes] Onset: 2 Resolved: 3 11-08-2021 Episodic Other liver diseases (2 sources) Liver mass; 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: [Hepatomegaly, not elsewhere classified] Episodic Other liver diseases (3 sources) Alkaline phosphatase raised; 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: [Abnormal levels of other serum enzymes] Episodic Other liver diseases (2 sources) Abnormal levels of other serum enzymes; 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: [Abnormal levels of other serum enzymes] Onset: 5 Episodic Other liver diseases (1 source) Hepatomegaly, not elsewhere classified; 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: [Hepatomegaly] Onset: 5 Episodic Other lower respiratory disease (20 sources) Dyspnea; 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: [Shortness of breath] Onset: 2 Resolved: 3 09-07-2021 Episodic Other lower respiratory disease (20 sources) Hypoxia; 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: [Hypoxemia] Onset: 2 Resolved: 3 01-26-2022 Episodic Other lower respiratory disease (6 sources) Shortness of breath; 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: [Shortness of breath] Onset: 5 Episodic Other lower respiratory disease (8 sources) Hypoxemia; 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: [Hypoxemia] Episodic Other lower respiratory disease (2 sources) Rib pain; 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: [Pleurodynia] Episodic Other lower respiratory disease (1 source) History of pleural effusion; 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: [Personal history of other diseases of the respiratory system] Episodic Other lower respiratory disease (1 source) Cough; 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: [Cough] 05-04-2020 Episodic Other nutritional; endocrine; and metabolic disorders (20 sources) Hypophosphatemia; 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: [Other disorders of phosphorus metabolism] Onset: 2 Resolved: 3 01-27-2022 Chronic Other nutritional; endocrine; and metabolic disorders (4 sources) Other disorders of phosphorus metabolism; 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 Other skin disorders (1 source) Eruption; 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: [Rash and other nonspecific skin eruption] 01-13-2023 Episodic Pathological fracture (1 source) Pathological fracture; 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: [Pathological fracture, other site, initial encounter for fracture] 08-18-2022 Episodic Pleurisy; pneumothorax; pulmonary collapse (20 sources) Pleural effusion; 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: [Pleural effusion, not elsewhere classified] Onset: 0 Resolved: 3 Episodic Comment on above: Right Pneumonia (except that caused by tuberculosis or sexually transmitted disease) (20 sources) Pneumonia; 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: [Pneumonia, unspecified organism] Onset: 2 Resolved: 3 Episodic Pulmonary heart disease (20 sources) Pulmonary hypertension; 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: [Pulmonary hypertension, unspecified] Onset: 1 05-11-2021 Chronic Respiratory failure; insufficiency; arrest (adult) (1 source) Chronic hypoxemic respiratory failure; 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: [Chronic respiratory failure with hypoxia] Chronic Respiratory failure; insufficiency; arrest (adult) (20 sources) Acute respiratory failure; 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: [Acute respiratory failure with hypoxia] Onset: 2 Resolved: 3 Episodic Rheumatoid arthritis and related disease (20 sources) Rheumatoid arthritis; 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: [Rheumatoid arthritis, unspecified] Onset: 1 Chronic Spondylosis; intervertebral disc disorders; other back problems (2 sources) Backache; 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: [Dorsalgia, unspecified] Episodic Thyroid disorders (20 sources) Thyroid nodule; 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: [Nontoxic single thyroid nodule] Onset: 9 Resolved: 1 05-11-2020 Chronic Unclassified (1 source) Unknown / UNK(Unknown) Onset: 8 Viral infection (9 sources) Herpes zoster without complication; 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: [Zoster without complications] 01-13-2023 Episodic Past or Other Problems Problem Classification Problem Date Documented Da te Episodic/Chronic Administrative/social admission (20 sources) Patient encounter status; 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: [Persons encountering health services in other specified circumstances] Onset: 2 Resolved: 3 07-24-2021 Episodic Biliary tract disease (20 sources) Cholelithiasis without obstruction; 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: [Calculus of gallbladder without cholecystitis without obstruction] Onset: 3 11-08-2022 Episodic Diabetes mellitus without complication (20 sources) Prediabetes; 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: [Prediabetes] Onset: 1 09-25-2020 Episodic Esophageal disorders (20 sources) Esophagitis; 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: [Esophagitis, unspecified] Onset: 9 Resolved: 8 10-10-2017 Episodic Malaise and fatigue (20 sources) Fatigue; 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: [Other fatigue] Onset: 7 Resolved: 8 10-10-2017 Episodic Miscellaneous mental health disorders (20 sources) Somatoform autonomic dysfunction - gastrointestinal tract; 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: [Other somatoform disorders] Onset: 9 Resolved: 8 10-10-2017 Chronic Neoplasms of unspecified nature or uncertain behavior (20 sources) Neoplasm of uncertain behavior of left kidney; 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] Onset: 2 Resolved: 3 09-19-2022 Episodic Other aftercare (3 sources) [facility] (current) use of anticoagulants; 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: [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] Onset: 6 Episodic Other circulatory disease (1 source) Hypotension, unspecified; 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: [Hypotension, unspecified hypotension type] Onset: 5 Episodic Other connective tissue disease (20 sources) History of polymyalgia rheumatica; 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: [Personal history of other diseases of the musculoskeletal system and connective tissue] Onset: 1 03-23-2020 Episodic Other connective tissue disease (1 source) Personal history of other diseases of the musculoskeletal system and connective tissue; 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: [History of polymyalgia rheumatica] Onset: 0 Episodic Other diseases of kidney and ureters (20 sources) Renal infarction; 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: [Ischemia and infarction of kidney] Onset: 2 Resolved: 3 04-19-2022 Episodic Other diseases of kidney and ureters (20 sources) Acquired renal cystic disease; 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: [Cyst of kidney, acquired] Onset: 2 Resolved: 3 09-19-2022 Episodic Other diseases of kidney and ureters (20 sources) Kidney disease; 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: [Ischemia and infarction of kidney] Onset: 2 Resolved: 3 09-19-2022 Episodic Other gastrointestinal disorders (20 sources) Dysphagia, unspecified; 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: [Dysphagia, unspecified] Resolved: 8 05-08-2018 Episodic Other gastrointestinal disorders (1 source) Diarrhea, unspecified; 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: [Diarrhea, unspecified] Onset: 5 Episodic Other injuries and conditions due to external causes (20 sources) H/O: vertebral fracture; 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: [Personal history of (healed) traumatic fracture] Onset: 3 11-08-2022 Episodic Other liver diseases (20 sources) Enzyme level - finding; 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: [Abnormal levels of other serum enzymes] Onset: 2 Resolved: 3 09-19-2022 Episodic Other lower respiratory disease (20 sources) Nodule of lung; 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: [Solitary pulmonary nodule] Onset: 0 Resolved: 4 09-25-2020 Episodic Other lower respiratory disease (20 sources) Hypoxemia; 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: [Hypoxemia] Onset: 2 Resolved: 3 09-19-2022 Episodic Other lower respiratory disease (20 sources) H/O: respiratory disease; 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: [Personal history of other diseases of the respiratory system] Onset: 3 11-08-2022 Episodic Other screening for suspected conditions (not mental disorders or infectious disease) (20 sources) Deviation of international normalized ratio from target range; 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: [Abnormal coagulation profile] Onset: 3 Resolved: 3 09-19-2022 Episodic Peripheral and visceral atherosclerosis (20 sources) Atherosclerosis of aorta; 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: [Atherosclerosis of aorta] Onset: 0 Resolved: 1 09-23-2020 Chronic Screening and history of mental health and substance abuse codes (2 sources) Encounter for screening for depression; 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: [Encounter for screening examination for other mental health and behavioral disorders] Onset: 5 Episodic Results Test Name Value Interpretation Reference Range Facility Prothrombin Time w/INRon INR Normal [facility] Comment on above: Result Comment: Canc elled via OM: Order cancelled - Patient discharged Performed By: #### L 300.3900 ####[facility] [address] [place], [place], [id number] PROTIME Normal 11.7-14.9 [facility] Comment on above: Result Comment: Canc elled via OM: Order cancelled - Patient discharged Performed By: #### L 300.3900 ####[facility] [address] [place], [place], [phone] Prothrombin Time w/INRon INR Normal [facility] Comment on above: Result Comment: Canc elled via OM: Order cancelled - Patient discharged Performed By: #### L 300.3900 ####[facility] [address] [place], [address] PROTIME Normal 11.7-14.9 [facility] Comment on above: Result Comment: Canc elled via OM: Order cancelled - Patient discharged Performed By: #### L 300.3900 ####[facility] [address] [place], [address] Basic Metabolic Profile (BMP )on 04-08-2025 BUN/CRE 15.2 RATIO Normal 10-20 [facility] Comment on above: Performed By: #### L 100.0500, L500.3400, L500.2500 ####[facility] [address] [place], [address] Calcium [Mass/Vol] 8.9 mg/dL Normal 7.6-11.0 [facility] Comment on above: Performed By: #### L 100.0500, L500.3400, L500.2500 ####[facility] [address] [place], [address] Chloride [Moles/Vol] 101 mmol/L Normal 98-108 [facility] Comment on above: Performed By: #### L 100.0500, L500.3400, L500.2500 ####[facility] [address] [place], [address] CO2 [Moles/Vol] 24.0 mmol/L Normal 21.0-32.0 [facility] Comment on above: Performed By: #### L 100.0500, L500.3400, L500.2500 ####[facility] [address] [place], [address] Creatinine [Mass/Vol] 0.70 mg/dL Normal 0.70-1.20 [facility] Comment on above: Performed By: #### L 100.0500, L500.3400, L500.2500 ####[facility] [address] [place], [address] ECRCL 40.96 ml/min Low 50-250 [facility] Comment on above: Performed By: #### L 100.0500, L500.3400, L500.2500 ####[facility] [address] [place], [address] GAP 10 Normal 5-15 [facility] Comment on above: Performed By: #### L 100.0500, L500.3400, L500.2500 ####[facility] [address] [place], [address] GFR/1.73 sq M.predicted among non-blacks MDRD (S/P/Bld) [Vol rate/Area] 87 mL/min/{1.73_m2} Normal >60 [facility] Comment on above: Result Comment: mL/m in/1.73m2 CKD-EPI Creatinine Equation (2020) Performed By: #### L 100.0500, L500.3400, L500.2500 ####[facility] [address] [place], [address] Glucose [Mass/Vol] 89 mg/dL Normal 70-99 [facility] Comment on above: Performed By: #### L 100.0500, L500.3400, L500.2500 ####[facility] [address] [place], [address] Potassium [Moles/Vol] 4.4 mmol/L Normal 3.3-5.1 [facility] Comment on above: Performed By: #### L 100.0500, L500.3400, L500.2500 ####[facility] [address] [place], [address] Sodium [Moles/Vol] 136 mmol/L Normal 133-145 [facility] Comment on above: Performed By: #### L 100.0500, L500.3400, L500.2500 ####[facility] [address] [place], [address] Urea nitrogen [Mass/Vol] 11 mg/dL Normal 4-19 [facility] Comment on above: Performed By: #### L 100.0500, L500.3400, L500.2500 ####[facility] [address] [place], [address] CBC-Complete Blood Cnt No Di ffon 04-08-2025 Erythrocyte distribution width (RBC) [Ratio] 15.3 % High 11.6-14.6 [facility] Comment on above: Performed By: #### L 100.0500, L500.3400, L500.2500 ####[facility] [address] [place], [address] Hematocrit (Bld) [Volume fraction] 41.8 % Normal 37-47 [facility] Comment on above: Performed By: #### L 100.0500, L500.3400, L500.2500 ####[facility] [address] [place], [address] Hemoglobin (Bld) [Mass/Vol] 14.1 g/dL Normal 12.0-15.0 [facility] Comment on above: Performed By: #### L 100.0500, L500.3400, L500.2500 ####[facility] [address] [place], [address] MCH (RBC) [Entitic mass] 29.4 pg Normal 27.0-32.0 [facility] Comment on above: Performed By: #### L 100.0500, L500.3400, L500.2500 ####[facility] [address] [place], [address] MCHC (RBC) [Mass/Vol] 33.7 g/dL Normal 32-36 [facility] Comment on above: Performed By: #### L 100.0500, L500.3400, L500.2500 ####[facility] [address] [place], [address] MCV (RBC) [Entitic vol] 87.1 fL Normal 81-99 [facility] Comment on above: Performed By: #### L 100.0500, L500.3400, L500.2500 ####[facility] [address] [place], [address] Platelet mean volume (Bld) [Entitic vol] 9.0 fL Normal 6.2-12.0 [facility] Comment on above: Performed By: #### L 100.0500, L500.3400, L500.2500 ####[facility] [address] [place], [address] Platelets (Bld) [#/Vol] 325 10*3/uL Normal 150-450 [facility] Comment on above: Performed By: #### L 100.0500, L500.3400, L500.2500 ####[facility] [address] [place], [address] RBC (Bld) [#/Vol] 4.80 10*6/uL Normal 4.2-5.4 [facility] Comment on above: Performed By: #### L 100.0500, L500.3400, L500.2500 ####[facility] [address] [place], [address] RDW SD 48.8 fl High 35.1-43.9 [facility] Comment on above: Performed By: #### L 100.0500, L500.3400, L500.2500 ####[facility] [address] [place], [address] WBC (Bld) [#/Vol] 8.5 10*3/uL Normal 4.4-11.0 [facility] Comment on above: Performed By: #### L 100.0500, L500.3400, L500.2500 ####[facility] [address] [place], [address] Liver Profileon 04-08-2025 Albumin [Mass/Vol] 3.7 g/dL Normal 3.4-4.8 [facility] Comment on above: Performed By: #### L 100.0500, L500.3400, L500.2500 ####[facility] [address] [place], [address] ALK PHOS 182 U/L High 35-104 [facility] Comment on above: Performed By: #### L 100.0500, L500.3400, L500.2500 ####[facility] [address] [place], [address] ALT [Catalytic activity/Vol] 58 U/L High <=34 [facility] Comment on above: Performed By: #### L 100.0500, L500.3400, L500.2500 ####[facility] [address] [place], [address] AST [Catalytic activity/Vol] 38 U/L High <=31 [facility] Comment on above: Performed By: #### L 100.0500, L500.3400, L500.2500 ####[facility] [address] [place], [address] Bilirubin [Mass/Vol] 0.96 mg/dL Normal 0.00-1.30 [facility] Comment on above: Performed By: #### L 100.0500, L500.3400, L500.2500 ####[facility] [address] [place], [address] Bilirubin.direct [Mass/Vol] 0.55 mg/dL High 0.00-0.30 [facility] Comment on above: Performed By: #### L 100.0500, L500.3400, L500.2500 ####[facility] [address] [place], [address] Globulin (S) [Mass/Vol] 2.9 g/dL Normal 2.2-4.2 [facility] Comment on above: Performed By: #### L 100.0500, L500.3400, L500.2500 ####[facility] [address] [place], [address] T PROT 6.6 g/dL Normal 5.9-8.4 [facility] Comment on above: Performed By: #### L 100.0500, L500.3400, L500.2500 ####[facility] [address] [place], [address] Prothrombin Time w/INRon INR Coag (PPP) [Relative time] 1.8 {INR} Normal [facility] Comment on above: Performed By: #### L 300.3900 ####[facility] [address] [place], [address] PT Coag (PPP) [Time] 21.4 s High 11.7-14.9 [facility] Comment on above: Performed By: #### L 300.3900 ####[facility] [address] [place], [address] Basic Metabolic Profile (BMP )on 04-07-2025 BUN/CRE 18.6 RATIO Normal 10-20 [facility] Comment on above: Order Comment: Comme nts: Fasting Lipid Profile Performed By: #### L 100.0500, L500.3400, L500.2500, L500.4100, L501.9520 ####[facility] [address] [place], [address] Calcium [Mass/Vol] 8.5 mg/dL Normal 7.6-11.0 [facility] Comment on above: Order Comment: Comme nts: Fasting Lipid Profile Performed By: #### L 100.0500, L500.3400, L500.2500, L500.4100, L501.9520 ####[facility] [address] [place], [address] Chloride [Moles/Vol] 99 mmol/L Normal 98-108 [facility] Comment on above: Order Comment: Comme nts: Fasting Lipid Profile Performed By: #### L 100.0500, L500.3400, L500.2500, L500.4100, L501.9520 ####[facility] [address] [place], [address] CO2 [Moles/Vol] 25.1 mmol/L Normal 21.0-32.0 [facility] Comment on above: Order Comment: Comme nts: Fasting Lipid Profile Performed By: #### L 100.0500, L500.3400, L500.2500, L500.4100, L501.9520 ####[facility] [address] [place], [address] Creatinine [Mass/Vol] 0.75 mg/dL Normal 0.70-1.20 [facility] Comment on above: Order Comment: Comme nts: Fasting Lipid Profile Performed By: #### L 100.0500, L500.3400, L500.2500, L500.4100, L501.9520 ####[facility] [address] [place], [address] ECRCL 40.96 ml/min Low 50-250 [facility] Comment on above: Order Comment: Comme nts: Fasting Lipid Profile Performed By: #### L 100.0500, L500.3400, L500.2500, L500.4100, L501.9520 ####[facility] [address] [place], [address] GAP 12 Normal 5-15 [facility] Comment on above: Order Comment: Comme nts: Fasting Lipid Profile Performed By: #### L 100.0500, L500.3400, L500.2500, L500.4100, L501.9520 ####[facility] [address] [place], [address] GFR/1.73 sq M.predicted among non-blacks MDRD (S/P/Bld) [Vol rate/Area] 80 mL/min/{1.73_m2} Normal >60 [facility] Comment on above: Order Comment: Comme nts: Fasting Lipid Profile Result Comment: mL/m in/1.73m2 CKD-EPI Creatinine Equation (2020) Performed By: #### L 100.0500, L500.3400, L500.2500, L500.4100, L501.9520 ####[facility] [address] [place], [address] Glucose [Mass/Vol] 95 mg/dL Normal 70-99 [facility] Comment on above: Order Comment: Comme nts: Fasting Lipid Profile Performed By: #### L 100.0500, L500.3400, L500.2500, L500.4100, L501.9520 ####[facility] [address] [place], [address] Potassium [Moles/Vol] 3.2 mmol/L Low 3.3-5.1 [facility] Comment on above: Order Comment: Comme nts: Fasting Lipid Profile Performed By: #### L 100.0500, L500.3400, L500.2500, L500.4100, L501.9520 ####[facility] [address] [place], [address] Sodium [Moles/Vol] 136 mmol/L Normal 133-145 [facility] Comment on above: Order Comment: Comme nts: Fasting Lipid Profile Performed By: #### L 100.0500, L500.3400, L500.2500, L500.4100, L501.9520 ####[facility] [address] [place], [address] Urea nitrogen [Mass/Vol] 14 mg/dL Normal 4-19 [facility] Comment on above: Order Comment: Comme nts: Fasting Lipid Profile Performed By: #### L 100.0500, L500.3400, L500.2500, L500.4100, L501.9520 ####[facility] [address] [place], [address] CBC-Complete Blood Cnt No Di ffon 04-07-2025 Erythrocyte distribution width (RBC) [Ratio] 15.7 % High 11.6-14.6 [facility] Comment on above: Performed By: #### L 100.0500, L500.3400, L500.2500, L500.4100, L501.9520 ####[facility] [address] [place], [address] Hematocrit (Bld) [Volume fraction] 39.2 % Normal 37-47 [facility] Comment on above: Performed By: #### L 100.0500, L500.3400, L500.2500, L500.4100, L501.9520 ####[facility] [address] [place], [address] Hemoglobin (Bld) [Mass/Vol] 12.7 g/dL Normal 12.0-15.0 [facility] Comment on above: Performed By: #### L 100.0500, L500.3400, L500.2500, L500.4100, L501.9520 ####[facility] [address] [place], [address] MCH (RBC) [Entitic mass] 28.2 pg Normal 27.0-32.0 [facility] Comment on above: Performed By: #### L 100.0500, L500.3400, L500.2500, L500.4100, L501.9520 ####[facility] [address] [place], [address] MCHC (RBC) [Mass/Vol] 32.4 g/dL Normal 32-36 [facility] Comment on above: Performed By: #### L 100.0500, L500.3400, L500.2500, L500.4100, L501.9520 ####[facility] [address] [place], [address] MCV (RBC) [Entitic vol] 87.1 fL Normal 81-99 [facility] Comment on above: Performed By: #### L 100.0500, L500.3400, L500.2500, L500.4100, L501.9520 ####[facility] [address] [place], [address] Platelet mean volume (Bld) [Entitic vol] 9.1 fL Normal 6.2-12.0 [facility] Comment on above: Performed By: #### L 100.0500, L500.3400, L500.2500, L500.4100, L501.9520 ####[facility] [address] [place], [address] Platelets (Bld) [#/Vol] 304 10*3/uL Normal 150-450 [facility] Comment on above: Performed By: #### L 100.0500, L500.3400, L500.2500, L500.4100, L501.9520 ####[facility] [address] [place], [address] RBC (Bld) [#/Vol] 4.50 10*6/uL Normal 4.2-5.4 [facility] Comment on above: Performed By: #### L 100.0500, L500.3400, L500.2500, L500.4100, L501.9520 ####[facility] [address] [place], [address] RDW SD 50.2 fl High 35.1-43.9 [facility] Comment on above: Performed By: #### L 100.0500, L500.3400, L500.2500, L500.4100, L501.9520 ####[facility] [address] [place], [address] WBC (Bld) [#/Vol] 7.6 10*3/uL Normal 4.4-11.0 [facility] Comment on above: Performed By: #### L 100.0500, L500.3400, L500.2500, L500.4100, L501.9520 ####[facility] [address] [place], [address] Consultation - Cardiologyon 04-07-2025 Consultation - Cardiology Normal [facility] Lipid Profileon 04-07-2025 CHOL:HDL 3.10 Normal [facility] Comment on above: Order Comment: Comme nts: Fasting Lipid Profile Performed By: #### L 100.0500, L500.3400, L500.2500, L500.4100, L501.9520 ####[facility] [address] [place], [address] Cholesterol [Mass/Vol] 157 mg/dL Normal <=200 [facility] Comment on above: Order Comment: Comme nts: Fasting Lipid Profile Result Comment: Chol esterol level, Desirable <200 mg/dLBorderline high cholesterol 200-239 mg/dLHigh cholesterol >=240 mg/dLRecommendations of the NCEP Adult Treatment Panel for thefollowing risk-cutoff thresholds for the [place] [facility]ulation. Performed By: #### L 100.0500, L500.3400, L500.2500, L500.4100, L501.9520 ####[facility] [address] [place], [address] Cholesterol in HDL [Mass/Vol] 51 mg/dL Normal [facility] [facility] Comment on above: Order Comment: Comme nts: Fasting Lipid Profile Result Comment: [employer] onal Cholesterol Education Program (NCEP) guidelines:<40 mg/dL: Low HDL-cholesterol (major risk factor for CHD)>= 60 mg/dL: High HDL-cholesterol (negative risk factor forCHD)HDL-cholesterol is affected by a number of factors, e.g.smoking, exercise, hormones, sex and age. Performed By: #### L 100.0500, L500.3400, L500.2500, L500.4100, L501.9520 ####[facility] [address] [place], [address] Cholesterol in LDL [Mass/Vol] 94 mg/dL Normal [facility] Comment on above: Order Comment: Comme nts: Fasting Lipid Profile Result Comment: Bord jshxdm=191-560 mg/dL Higher Gjep=338 mg/dL or greaterSampson Equation 2020 for LDL-C Performed By: #### L 100.0500, L500.3400, L500.2500, L500.4100, L501.9520 ####[facility] [address] [place], [address] Cholesterol in VLDL [Mass/Vol] 12 mg/dL Normal 5-40 [facility] Comment on above: Order Comment: Comme nts: Fasting Lipid Profile Performed By: #### L 100.0500, L500.3400, L500.2500, L500.4100, L501.9520 ####[facility] [address] [place], [address] Triglyceride [Mass/Vol] 61 mg/dL Normal [facility] Comment on above: Order Comment: Comme nts: Fasting Lipid Profile Result Comment: The drugs N-Acetylcysteine and Metamizole may falselydepress this assay.Normal range: <150 mg/dLBorderline High: 150-199 mg/dLHigh: 200-499 mg/dLVery High: >500 mg/dL Performed By: #### L 100.0500, L500.3400, L500.2500, L500.4100, L501.9520 ####[facility] [address] [place], [address] Liver Profileon 04-07-2025 Albumin [Mass/Vol] 3.6 g/dL Normal 3.4-4.8 [facility] Comment on above: Order Comment: Comme nts: Fasting Lipid Profile Performed By: #### L 100.0500, L500.3400, L500.2500, L500.4100, L501.9520 ####[facility] [address] [place], [address] ALK PHOS 175 U/L High 35-104 [facility] Comment on above: Order Comment: Comme nts: Fasting Lipid Profile Performed By: #### L 100.0500, L500.3400, L500.2500, L500.4100, L501.9520 ####[facility] [address] [place], [address] ALT [Catalytic activity/Vol] 72 U/L High <=34 [facility] Comment on above: Order Comment: Comme nts: Fasting Lipid Profile Performed By: #### L 100.0500, L500.3400, L500.2500, L500.4100, L501.9520 ####[facility] [address] [place], [address] AST [Catalytic activity/Vol] 62 U/L High <=31 [facility] Comment on above: Order Comment: Comme nts: Fasting Lipid Profile Performed By: #### L 100.0500, L500.3400, L500.2500, L500.4100, L501.9520 ####[facility] [address] [place], [address] Bilirubin [Mass/Vol] 0.86 mg/dL Normal 0.00-1.30 [facility] Comment on above: Order Comment: Comme nts: Fasting Lipid Profile Performed By: #### L 100.0500, L500.3400, L500.2500, L500.4100, L501.9520 ####[facility] [address] [place], [address] Bilirubin.direct [Mass/Vol] 0.42 mg/dL High 0.00-0.30 [facility] Comment on above: Order Comment: Comme nts: Fasting Lipid Profile Performed By: #### L 100.0500, L500.3400, L500.2500, L500.4100, L501.9520 ####[facility] [address] [place], [address] Globulin (S) [Mass/Vol] 2.7 g/dL Normal 2.2-4.2 [facility] Comment on above: Order Comment: Comme nts: Fasting Lipid Profile Performed By: #### L 100.0500, L500.3400, L500.2500, L500.4100, L501.9520 ####[facility] [address] [place], [address] T PROT 6.4 g/dL Normal 5.9-8.4 [facility] Comment on above: Order Comment: Comme nts: Fasting Lipid Profile Performed By: #### L 100.0500, L500.3400, L500.2500, L500.4100, L501.9520 ####[facility] [address] [place], [address] Prothrombin Time w/INRon INR Coag (PPP) [Relative time] 2.0 {INR} Normal [facility] Comment on above: Performed By: #### L 300.3900 ####[facility] [address] [place], [address] PT Coag (PPP) [Time] 22.7 s High 11.7-14.9 [facility] Comment on above: Performed By: #### L 300.3900 ####[facility] [address] [place], [address] Thyroid Stim Hormone (TSH)on 04-07-2025 TSH 1.120 uIU/mL Normal 0.300-4.200 [facility] Comment on above: Order Comment: Comme nts: Fasting Lipid Profile Performed By: #### L 100.0500, L500.3400, L500.2500, L500.4100, L501.9520 ####[facility] [address] [place], [address] 12 Lead EKGon 04-06-2025 12 Lead EKG Normal [facility] Abdomen/Pelvis W IV Cont ONL Yon 04-06-2025 Abdomen/Pelvis W IV Cont ONLY Normal [facility] CBC W/Diff, Automatedon 11- Absolute Lymph 1.22 X10 3/uL Normal 0.83-4.51 [facility] Comment on above: Performed By: #### L 501.4021, L503.7505, L501.5200, L501.2450, L100.0100, L500.4050, L501.9520 ####[facility] [address] [place], [address] Absolute Neut 7.9 X10 3/uL High 2.0-7.7 [facility] Comment on above: Performed By: #### L 501.4021, L503.7505, L501.5200, L501.2450, L100.0100, L500.4050, L501.9520 ####[facility] [address] [place], [address] Basophils/100 WBC (Bld) 0.4 % Normal 0-1 [facility] Comment on above: Performed By: #### L 501.4021, L503.7505, L501.5200, L501.2450, L100.0100, L500.4050, L501.9520 ####[facility] [address] [place], [address] Eosinophils/100 WBC (Bld) 0.1 % Normal 0-5 [facility] Comment on above: Performed By: #### L 501.4021, L503.7505, L501.5200, L501.2450, L100.0100, L500.4050, L501.9520 ####[facility] [address] [place], [address] Erythrocyte distribution width (RBC) [Ratio] 15.7 % High 11.6-14.6 [facility] Comment on above: Performed By: #### L 501.4021, L503.7505, L501.5200, L501.2450, L100.0100, L500.4050, L501.9520 ####[facility] [address] [place], [address] Hematocrit (Bld) [Volume fraction] 39.0 % Normal 37-47 [facility] Comment on above: Performed By: #### L 501.4021, L503.7505, L501.5200, L501.2450, L100.0100, L500.4050, L501.9520 ####[facility] [address] [place], [address] Hemoglobin (Bld) [Mass/Vol] 12.9 g/dL Normal 12.0-15.0 [facility] Comment on above: Performed By: #### L 501.4021, L503.7505, L501.5200, L501.2450, L100.0100, L500.4050, L501.9520 ####[facility] [address] [place], [address] IG% 0.600 Normal 0.0-0.9 [facility] Comment on above: Result Comment: IG% - Immature Granulocytes (promyelocytes, myelocytes andmetamyelocytes) > 1% indicates that a LEFT SHIFT is Present. Performed By: #### L 501.4021, L503.7505, L501.5200, L501.2450, L100.0100, L500.4050, L501.9520 ####[facility] [address] [place], [address] Lymphocytes/100 WBC (Bld) 11.9 % Low 19-41 [facility] Comment on above: Performed By: #### L 501.4021, L503.7505, L501.5200, L501.2450, L100.0100, L500.4050, L501.9520 ####[facility] [address] [place], [address] MCH (RBC) [Entitic mass] 28.9 pg Normal 27.0-32.0 [facility] Comment on above: Performed By: #### L 501.4021, L503.7505, L501.5200, L501.2450, L100.0100, L500.4050, L501.9520 ####[facility] [address] [place], [address] MCHC (RBC) [Mass/Vol] 33.1 g/dL Normal 32-36 [facility] Comment on above: Performed By: #### L 501.4021, L503.7505, L501.5200, L501.2450, L100.0100, L500.4050, L501.9520 ####[facility] [address] [place], [address] MCV (RBC) [Entitic vol] 87.2 fL Normal 81-99 [facility] Comment on above: Performed By: #### L 501.4021, L503.7505, L501.5200, L501.2450, L100.0100, L500.4050, L501.9520 ####[facility] [address] [place], [address] Monocytes/100 WBC (Bld) 10.0 % Normal 0-10 [facility] Comment on above: Performed By: #### L 501.4021, L503.7505, L501.5200, L501.2450, L100.0100, L500.4050, L501.9520 ####[facility] [address] [place], [address] Neutrophils/100 WBC (Bld) 77.0 % High 47-70 [facility] Comment on above: Performed By: #### L 501.4021, L503.7505, L501.5200, L501.2450, L100.0100, L500.4050, L501.9520 ####[facility] [address] [place], [address] Nucleated RBC (Bld) [#/Vol] 0 10*3/uL Normal 0-5 [facility] Comment on above: Performed By: #### L 501.4021, L503.7505, L501.5200, L501.2450, L100.0100, L500.4050, L501.9520 ####[facility] [address] [place], [address] Platelet mean volume (Bld) [Entitic vol] 9.6 fL Normal 6.2-12.0 [facility] Comment on above: Performed By: #### L 501.4021, L503.7505, L501.5200, L501.2450, L100.0100, L500.4050, L501.9520 ####[facility] [address] [place], [address] Platelets (Bld) [#/Vol] 319 10*3/uL Normal 150-450 [facility] Comment on above: Performed By: #### L 501.4021, L503.7505, L501.5200, L501.2450, L100.0100, L500.4050, L501.9520 ####[facility] [address] [place], [address] RBC (Bld) [#/Vol] 4.47 10*6/uL Normal 4.2-5.4 [facility] Comment on above: Performed By: #### L 501.4021, L503.7505, L501.5200, L501.2450, L100.0100, L500.4050, L501.9520 ####[facility] [address] [place], [address] RDW SD 50.1 fl High 35.1-43.9 [facility] Comment on above: Performed By: #### L 501.4021, L503.7505, L501.5200, L501.2450, L100.0100, L500.4050, L501.9520 ####[facility] [address] [place], [address] WBC (Bld) [#/Vol] 10.2 10*3/uL Normal 4.4-11.0 [facility] Comment on above: Performed By: #### L 501.4021, L503.7505, L501.5200, L501.2450, L100.0100, L500.4050, L501.9520 ####[facility] [address] [place], [address] CTA Chest W/WO Contraston CTA Chest W/WO Contrast Normal [facility] Comprehensive Metabolic Prof ilon 04-06-2025 Albumin [Mass/Vol] 3.9 g/dL Normal 3.4-4.8 [facility] Comment on above: Performed By: #### L 501.4021, L503.7505, L501.5200, L501.2450, L100.0100, L500.4050, L501.9520 ####[facility] [address] [place], [address] Albumin/Globulin [Mass ratio] 1.5 {ratio} Normal 0.9-2.4 [facility] Comment on above: Performed By: #### L 501.4021, L503.7505, L501.5200, L501.2450, L100.0100, L500.4050, L501.9520 ####[facility] [address] [place], [address] ALK PHOS 196 U/L High 35-104 [facility] Comment on above: Performed By: #### L 501.4021, L503.7505, L501.5200, L501.2450, L100.0100, L500.4050, L501.9520 ####[facility] [address] [place], [address] ALT [Catalytic activity/Vol] 86 U/L High <=34 [facility] Comment on above: Performed By: #### L 501.4021, L503.7505, L501.5200, L501.2450, L100.0100, L500.4050, L501.9520 ####[facility] [address] [place], [address] AST [Catalytic activity/Vol] 106 U/L High <=31 [facility] Comment on above: Performed By: #### L 501.4021, L503.7505, L501.5200, L501.2450, L100.0100, L500.4050, L501.9520 ####[facility] [address] [place], [address] Bilirubin [Mass/Vol] 1.30 mg/dL Normal 0.00-1.30 [facility] Comment on above: Performed By: #### L 501.4021, L503.7505, L501.5200, L501.2450, L100.0100, L500.4050, L501.9520 ####[facility] [address] [place], [address] BUN/CRE 16.6 RATIO Normal 10-20 [facility] Comment on above: Performed By: #### L 501.4021, L503.7505, L501.5200, L501.2450, L100.0100, L500.4050, L501.9520 ####[facility] [address] [place], [address] Calcium [Mass/Vol] 8.8 mg/dL Normal 7.6-11.0 [facility] Comment on above: Performed By: #### L 501.4021, L503.7505, L501.5200, L501.2450, L100.0100, L500.4050, L501.9520 ####[facility] [address] [place], [address] Chloride [Moles/Vol] 102 mmol/L Normal 98-108 [facility] Comment on above: Performed By: #### L 501.4021, L503.7505, L501.5200, L501.2450, L100.0100, L500.4050, L501.9520 ####[facility] [address] [place], [address] CO2 [Moles/Vol] 22.1 mmol/L Normal 21.0-32.0 [facility] Comment on above: Performed By: #### L 501.4021, L503.7505, L501.5200, L501.2450, L100.0100, L500.4050, L501.9520 ####[facility] [address] [place], [address] Creatinine [Mass/Vol] 0.78 mg/dL Normal 0.70-1.20 [facility] Comment on above: Performed By: #### L 501.4021, L503.7505, L501.5200, L501.2450, L100.0100, L500.4050, L501.9520 ####[facility] [address] [place], [address] ECRCL 45.39 ml/min Low 50-250 [facility] Comment on above: Performed By: #### L 501.4021, L503.7505, L501.5200, L501.2450, L100.0100, L500.4050, L501.9520 ####[facility] [address] [place], [address] GAP 11 Normal 5-15 [facility] Comment on above: Performed By: #### L 501.4021, L503.7505, L501.5200, L501.2450, L100.0100, L500.4050, L501.9520 ####[facility] [address] [place], [address] GFR/1.73 sq M.predicted among non-blacks MDRD (S/P/Bld) [Vol rate/Area] 77 mL/min/{1.73_m2} Normal >60 [facility] Comment on above: Result Comment: mL/m in/1.73m2 CKD-EPI Creatinine Equation (2020) Performed By: #### L 501.4021, L503.7505, L501.5200, L501.2450, L100.0100, L500.4050, L501.9520 ####[facility] [address] [place], [place], [phone] Globulin (S) [Mass/Vol] 2.6 g/dL Normal 2.2-4.2 [facility] Comment on above: Performed By: #### L 501.4021, L503.7505, L501.5200, L501.2450, L100.0100, L500.4050, L501.9520 ####[facility] [address] [place], [place], [phone] Glucose [Mass/Vol] 109 mg/dL High 70-99 [facility] Comment on above: Performed By: #### L 501.4021, L503.7505, L501.5200, L501.2450, L100.0100, L500.4050, L501.9520 ####[facility] [address] [place], [address] Potassium [Moles/Vol] 4.2 mmol/L Normal 3.3-5.1 [facility] Comment on above: Performed By: #### L 501.4021, L503.7505, L501.5200, L501.2450, L100.0100, L500.4050, L501.9520 ####[facility] [address] [place], [address] Sodium [Moles/Vol] 135 mmol/L Normal 133-145 [facility] Comment on above: Performed By: #### L 501.4021, L503.7505, L501.5200, L501.2450, L100.0100, L500.4050, L501.9520 ####[facility] [address] [place], [address] T PROT 6.5 g/dL Normal 5.9-8.4 [facility] Comment on above: Performed By: #### L 501.4021, L503.7505, L501.5200, L501.2450, L100.0100, L500.4050, L501.9520 ####[facility] [address] [place], [address] Urea nitrogen [Mass/Vol] 13 mg/dL Normal 4-19 [facility] Comment on above: Performed By: #### L 501.4021, L503.7505, L501.5200, L501.2450, L100.0100, L500.4050, L501.9520 ####[facility] [address] [place], [address] Emergency Department Summary on 04-06-2025 Emergency Department Summary Normal [facility] H AND P Exam - Hospitaliston 04-06-2025 H&P Exam - Hospitalist Normal [facility] L501.4021on 04-06-2025 Trop T High Sen 9 ng/L Normal <=14 [facility] Comment on above: Performed By: #### L 501.4021, L503.7505, L501.5200, L501.2450, L100.0100, L500.4050, L501.9520 ####[facility] [address] [place], [address] Lipaseon 04-06-2025 Lipase [Catalytic activity/Vol] 30 U/L Normal 13-75 [facility] Comment on above: Result Comment: Ronna box note:LIPASE revised reference range effective 22.New Lipase methodology. Expected to produce lower valuesthan the previous assay method.NEW Reference Range: 13 - 75 U/L Performed By: #### L 501.4021, L503.7505, L501.5200, L501.2450, L100.0100, L500.4050, L501.9520 ####[facility] [address] [place], [address] Magnesiumon 04-06-2025 Magnesium [Mass/Vol] 2.1 mg/dL Normal 1.5-2.2 [facility] Comment on above: Performed By: #### L 501.4021, L503.7505, L501.5200, L501.2450, L100.0100, L500.4050, L501.9520 ####[facility] [address] [place], [address] Pro- Brain NATRIURETIC PEPTI Jaya 04-06-2025 Natriuretic peptide B (Bld) [Mass/Vol] 5089 pg/mL High <=1800 [facility] Comment on above: Result Comment: Hear t Failure Unlikely: < 300 pg/mLHeart Failure Likely< 50 Years: > 450 pg/mL50-75 Years: > 900 pg/mL>75 Years: > 1800 pg/mL Performed By: #### L 501.4021, L503.7505, L501.5200, L501.2450, L100.0100, L500.4050, L501.9520 ####[facility] [address] [place], [address] Prothrombin Time w/INRon INR Coag (PPP) [Relative time] 2.4 {INR} Normal [facility] Comment on above: Performed By: #### L 300.3900 ####[facility] [address] [place], [address] PT Coag (PPP) [Time] 26.8 s High 11.7-14.9 [facility] Comment on above: Performed By: #### L 300.3900 ####[facility] [address] [place], [address] INR Normal [facility] Comment on above: Result Comment: DUPL ICATE Performed By: #### L 300.3900 ####[facility] [address] [place], [address] PROTIME Normal 11.7-14.9 [facility] Comment on above: Result Comment: DUPL ICATE Performed By: #### L 300.3900 ####[facility] [address] [place], [address] Thyroid Stim Hormone (TSH)on 04-06-2025 TSH 0.970 uIU/mL Normal 0.300-4.200 [facility] Comment on above: Performed By: #### L 501.4021, L503.7505, L501.5200, L501.2450, L100.0100, L500.4050, L501.9520 ####[facility] [address] [place], [address] Troponin T HS 2 HRon 025 Trop T High Sen 7 ng/L Normal <=14 [facility] Comment on above: Performed By: #### L 499.0042 ####[facility] [address] [place], [address] Troponin T HS 4 HRon 025 Trop T High Sen 8 ng/L Normal <=14 [facility] Comment on above: Result Comment: Thi escoto via OM: Ordered Performed By: #### L 499.0043 ####[facility] [address] [place], [address] Urinalysis, Completeon 04-06 EPI,SQUAMOUS 0-5 SEEN Normal 5-10 [facility] Comment on above: Order Comment: CLEAN CATCH Performed By: #### L 400.0001 ####[facility] [address] [place], [address] BACTERIA 0 SEEN Normal None Seen [facility] Comment on above: Order Comment: CLEAN CATCH Performed By: #### L 400.0001 ####[facility] [address] [place], [address] Mucus Ql (Urine sed) 0 SEEN Normal [facility] Comment on above: Order Comment: CLEAN CATCH Performed By: #### L 400.0001 ####[facility] [address] [place], [address] RBC 0 SEEN Normal 0-5 [facility] Comment on above: Order Comment: CLEAN CATCH Performed By: #### L 400.0001 ####[facility] [address] [place], [address] WBC 0 SEEN Normal 0-5 [facility] Comment on above: Order Comment: CLEAN CATCH Performed By: #### L 400.0001 ####[facility] [address] [place], [address] Basic Metabolic Profile (BMP )on 03-27-2025 BUN/CRE 18.8 RATIO Normal 10-20 [facility] Comment on above: Performed By: #### L 500.2500 ####[facility] [address] [place], [address] Calcium [Mass/Vol] 8.8 mg/dL Normal 7.6-11.0 [facility] Comment on above: Performed By: #### L 500.2500 ####[facility] [address] [place], [address] Chloride [Moles/Vol] 99 mmol/L Normal 98-108 [facility] Comment on above: Performed By: #### L 500.2500 ####[facility] [address] [place], [address] CO2 [Moles/Vol] 28.3 mmol/L Normal 21.0-32.0 [facility] Comment on above: Performed By: #### L 500.2500 ####[facility] [address] [place], [address] Creatinine [Mass/Vol] 0.89 mg/dL Normal 0.70-1.20 [facility] Comment on above: Performed By: #### L 500.2500 ####[facility] [address] [place], [address] GAP 10 Normal 5-15 [facility] Comment on above: Performed By: #### L 500.2500 ####[facility] [address] [place], [address] GFR/1.73 sq M.predicted among non-blacks MDRD (S/P/Bld) [Vol rate/Area] 66 mL/min/{1.73_m2} Normal >60 [facility] Comment on above: Result Comment: mL/m in/1.73m2 CKD-EPI Creatinine Equation (2020) Performed By: #### L 500.2500 ####[facility] [address] [place], [address] Glucose [Mass/Vol] 125 mg/dL High 70-99 [facility] Comment on above: Performed By: #### L 500.2500 ####[facility] [address] [place], [address] Potassium [Moles/Vol] 4.1 mmol/L Normal 3.3-5.1 [facility] Comment on above: Performed By: #### L 500.2500 ####[facility] [address] [place], [address] Sodium [Moles/Vol] 137 mmol/L Normal 133-145 [facility] Comment on above: Performed By: #### L 500.2500 ####[facility] [address] [place], [address] Urea nitrogen [Mass/Vol] 17 mg/dL Normal 4-19 [facility] Comment on above: Performed By: #### L 500.2500 ####[facility] [address] [place], [address] Anion gap in Serum or Plasma Ordered By: John Last on 03-04-2025 Anion gap [Moles/Vol] 10 mmol/L - [facility] BUN/creatinine ratioOrdered By: John Last on 03-04-2025 Urea nitrogen/Creatinine [Mass ratio] 14.1 mg/mg - [facility] Basic Metabolic Profile (BMP )on 03-04-2025 BUN/CRE 14.1 RATIO Normal - [facility] Comment on above: Performed By: #### L 500.2500, L583.8645 ####[facility] [address] [place], [address] Calcium [Mass/Vol] 8.8 mg/dL Normal 7.6-11.0 [facility] Comment on above: Performed By: #### L 500.2500, L503.5795 ####[facility] [address] [place], [address] Chloride [Moles/Vol] 99 mmol/L Normal 98-108 [facility] Comment on above: Performed By: #### L 500.2500, L503.7505 ####[facility] [address] [place], [address] CO2 [Moles/Vol] 26.2 mmol/L Normal 21.0-32.0 [facility] Comment on above: Performed By: #### L 500.2500, L503.7505 ####[facility] [address] [place], [address] Creatinine [Mass/Vol] 0.83 mg/dL Normal 0.70-1.20 [facility] Comment on above: Performed By: #### L 500.2500, L503.7505 ####[facility] [address] [place], [address] GAP 10 Normal 5-15 [facility] Comment on above: Performed By: #### L 500.2500, L503.7505 ####[facility] [address] [place], [address] GFR/1.73 sq M.predicted among non-blacks MDRD (S/P/Bld) [Vol rate/Area] 71 mL/min/{1.73_m2} Normal >60 [facility] Comment on above: Result Comment: mL/m in/1.73m2 CKD-EPI Creatinine Equation (2020) Performed By: #### L 500.2499, L503.7505 ####[facility] [address] [place], [address] Glucose [Mass/Vol] 98 mg/dL Normal 70-99 [facility] Comment on above: Performed By: #### L 500.2500, L503.7505 ####[facility] [address] [place], [address] Potassium [Moles/Vol] 3.9 mmol/L Normal 3.3-5.1 [facility] Comment on above: Performed By: #### L 500.2500, L503.7505 ####[facility] [address] [place], [address] Sodium [Moles/Vol] 135 mmol/L Normal 133-145 [facility] Comment on above: Performed By: #### L 500.2500, L503.7505 ####[facility] [address] [place], [address] Urea nitrogen [Mass/Vol] 12 mg/dL Normal 4-19 [facility] Comment on above: Performed By: #### L 500.2500, L503.7505 ####[facility] [address] [place], [address] Carbon dioxide, total [Moles /volume] in Central venous bloodOrdered By: John Last on 03-04-2025 CO2 [Moles/Vol] 26.2 mmol/L 21.0-32.0 [facility] Cardiology Visit Reporton Cardiology Visit Report Normal [facility] Chest PA and Lateralon 03-04 Chest PA and Lateral Normal [facility] Chloride assayOrdered By: Regis Last on 03-04-2025 Chloride [Moles/Vol] 99 mmol/L 98-108 [facility] Glomerular filtration rate ( GFR) estimation/1.73 sq m using serum, plasma, or whole bOrdered By: John Last on 03-04-2025 GFR/1.73 sq M.predicted among non-blacks MDRD (S/P/Bld) [Vol rate/Area] 71 mL/min/{1.73_m2} >60 [facility] Comment on above: mL/min/1.73m2 CKD-EP I Creatinine Equation (2020) Natriuretic peptide.B prohor frida N-Terminal [Mass/volume] in Serum or PlasmaOrdered By: John Last on 03-04-2025 Natriuretic peptide.B prohormone N-Terminal [Mass/Vol] 2021 pg/mL High <1800 [facility] Comment on above: Heart Failure Unlike ly: < 300 pg/mLHeart Failure Likely< 50 Years: > 450 pg/mL50-75 Years: > 900 pg/mL>75 Years: > 1800 pg/mL Potassium measurement (mass/ volume)Ordered By: John Last on 03-04-2025 Potassium (Unsp spec) [Mass/Vol] 3.9 mmol/L 3.3-5.1 [facility] Pro- Brain NATRIURETIC PEPTI Jaya 03-04-2025 Natriuretic peptide B (Bld) [Mass/Vol] 2021 pg/mL High <=1800 [facility] Comment on above: Result Comment: Hear t Failure Unlikely: < 300 pg/mLHeart Failure Likely< 50 Years: > 450 pg/mL50-75 Years: > 900 pg/mL>75 Years: > 1800 pg/mL Performed By: #### L 500.2500, L503.7505 ####[facility] [address] [place], [address] Serum creatinine measurement (mass/volume)Ordered By: John Last on 03-04-2025 Creatinine [Mass/Vol] 0.83 mg/dL 0.70-1.20 [facility] Serum glucose measurement (m ass/volume)Ordered By: John Last on 03-04-2025 Glucose [Mass/Vol] 98 mg/dL 70-99 [facility] Serum or plasma calcium mahnaz urement (mass/volume)Ordered By: John Last on 03-04-2025 Calcium [Mass/Vol] 8.8 mg/dL 7.6-11.0 [facility] Serum or plasma urea nitroge n measurement (mass/volume)Ordered By: John Last on 03-04-2025 Urea nitrogen [Mass/Vol] 12 mg/dL 09-21 [facility] Sodium levelOrdered By: Hannah Last on 03-04-2025 Sodium [Moles/Vol] 135 mmol/L 133-145 [facility] PT panel Coag (PPP)on 2024 INR Coag (Bld) [Relative time] 4.0 {INR} [facility] Basic Metabolic Profile (BMP )on 01-31-2025 BUN Normal 09-21 [facility] Comment on above: Result Comment: Canc elled via OM: Order cancelled - Patient discharged Performed By: #### L 500.2500, L100.0100 ####[facility] [address] [place], [address] BUN/CRE Normal 10-20 [facility] Comment on above: Result Comment: Canc elled via OM: Order cancelled - Patient discharged Performed By: #### L 500.2500, L100.0100 ####[facility] [address] [place], [address] Calcium Normal 7.6-11.0 [facility] Comment on above: Result Comment: Canc elled via OM: Order cancelled - Patient discharged Performed By: #### L 500.2500, L100.0100 ####[facility] [address] [place], [address] CL Normal 98-108 [facility] Comment on above: Result Comment: Canc elled via OM: Order cancelled - Patient discharged Performed By: #### L 500.2500, L100.0100 ####[facility] [address] [place], [address] CO2 Normal 21.0-32.0 [facility] Comment on above: Result Comment: Canc elled via OM: Order cancelled - Patient discharged Performed By: #### L 500.2500, L100.0100 ####[facility] [address] [place], [address] CREAT,SERUM Normal 0.70-1.20 [facility] Comment on above: Result Comment: Canc elled via OM: Order cancelled - Patient discharged Performed By: #### L 500.2500, L100.0100 ####[facility] [address] [place], [address] eGFR Normal >60 [facility] Comment on above: Result Comment: Canc elled via OM: Order cancelled - Patient discharged Performed By: #### L 500.2500, L100.0100 ####[facility] [address] [place], [address] GAP Normal 5-15 [facility] Comment on above: Result Comment: Canc elled via OM: Order cancelled - Patient discharged Performed By: #### L 500.2500, L100.0100 ####[facility] [address] [place], [address] GLU Normal 70-99 [facility] Comment on above: Result Comment: Canc elled via OM: Order cancelled - Patient discharged Performed By: #### L 500.2500, L100.0100 ####[facility] [address] [place], [address] Potassium Normal 3.3-5.1 [facility] Comment on above: Result Comment: Canc elled via OM: Order cancelled - Patient discharged Performed By: #### L 500.2500, L100.0100 ####[facility] [address] [place], [address] Basic Metabolic Profile (BMP) Normal 133-145 [facility] Comment on above: Result Comment: Canc elled via OM: Order cancelled - Patient discharged Performed By: #### L 500.2500, L100.0100 ####[facility] [address] [place], [address] CBC W/Diff, Automatedon 08-2 Absolute Neut Normal 2.0-7.7 [facility] Comment on above: Result Comment: Canc elled via OM: Order cancelled - Patient discharged Performed By: #### L 500.2500, L100.0100 ####[facility] [address] [place], [address] HCT Normal 37-47 [facility] Comment on above: Result Comment: Canc elled via OM: Order cancelled - Patient discharged Performed By: #### L 500.2500, L100.0100 ####[facility] [address] [place], [address] HGB Normal 12.0-15.0 [facility] Comment on above: Result Comment: Canc elled via OM: Order cancelled - Patient discharged Performed By: #### L 500.2500, L100.0100 ####[facility] [address] [place], [address] MCH Normal 27.0-32.0 [facility] Comment on above: Result Comment: Canc elled via OM: Order cancelled - Patient discharged Performed By: #### L 500.2500, L100.0100 ####[facility] [address] [place], [address] MCHC Normal 32-36 [facility] Comment on above: Result Comment: Canc elled via OM: Order cancelled - Patient discharged Performed By: #### L 500.2500, L100.0100 ####[facility] [address] [place], [address] MCV Normal 81-99 [facility] Comment on above: Result Comment: Canc elled via OM: Order cancelled - Patient discharged Performed By: #### L 500.2500, L100.0100 ####[facility] [address] [place], [address] NEUT% Normal 47-70 [facility] Comment on above: Result Comment: Canc elled via OM: Order cancelled - Patient discharged Performed By: #### L 500.2500, L100.0100 ####[facility] [address] [place], [address] PLT Normal 150-450 [facility] Comment on above: Result Comment: Canc elled via OM: Order cancelled - Patient discharged Performed By: #### L 500.2500, L100.0100 ####[facility] [address] [place], [address] RBC Normal 4.2-5.4 [facility] Comment on above: Result Comment: Canc elled via OM: Order cancelled - Patient discharged Performed By: #### L 500.2500, L100.0100 ####[facility] [address] [place], [address] RDW CV Normal 11.6-14.6 [facility] Comment on above: Result Comment: Canc elled via OM: Order cancelled - Patient discharged Performed By: #### L 500.2500, L100.0100 ####[facility] [address] [place], [address] RDW SD Normal 35.1-43.9 [facility] Comment on above: Result Comment: Canc elled via OM: Order cancelled - Patient discharged Performed By: #### L 500.2500, L100.0100 ####[facility] [address] [place], [address] WBC Normal 4.4-11.0 [facility] Comment on above: Result Comment: Canc elled via OM: Order cancelled - Patient discharged Performed By: #### L 500.2500, L100.0100 ####[facility] [address] [place], [address] Basic Metabolic Profile (BMP )on 01-30-2025 BUN Normal 4-19 [facility] Comment on above: Result Comment: Canc elled via OM: Order cancelled - Patient discharged Performed By: #### L 100.0100, L500.2500 ####[facility] [address] [place], [address] BUN/CRE Normal 10-20 [facility] Comment on above: Result Comment: Canc elled via OM: Order cancelled - Patient discharged Performed By: #### L 100.0100, L500.2500 ####[facility] [address] [place], [address] Calcium Normal 7.6-11.0 [facility] Comment on above: Result Comment: Canc elled via OM: Order cancelled - Patient discharged Performed By: #### L 100.0100, L500.2500 ####[facility] [address] [place], [address] CL Normal 98-108 [facility] Comment on above: Result Comment: Canc elled via OM: Order cancelled - Patient discharged Performed By: #### L 100.0100, L500.2500 ####[facility] [address] [place], [address] CO2 Normal 21.0-32.0 [facility] Comment on above: Result Comment: Canc elled via OM: Order cancelled - Patient discharged Performed By: #### L 100.0100, L500.2500 ####[facility] [address] [place], [address] CREAT,SERUM Normal 0.70-1.20 [facility] Comment on above: Result Comment: Canc elled via OM: Order cancelled - Patient discharged Performed By: #### L 100.0100, L500.2500 ####[facility] [address] [place], [address] eGFR Normal >60 [facility] Comment on above: Result Comment: Canc elled via OM: Order cancelled - Patient discharged Performed By: #### L 100.0100, L500.2500 ####[facility] [address] [place], [address] GAP Normal 5-15 [facility] Comment on above: Result Comment: Canc elled via OM: Order cancelled - Patient discharged Performed By: #### L 100.0100, L500.2500 ####[facility] [address] [place], [address] GLU Normal 70-99 [facility] Comment on above: Result Comment: Canc elled via OM: Order cancelled - Patient discharged Performed By: #### L 100.0100, L500.2500 ####[facility] [address] [place], [address] Potassium Normal 3.3-5.1 [facility] Comment on above: Result Comment: Canc elled via OM: Order cancelled - Patient discharged Performed By: #### L 100.0100, L500.2500 ####[facility] [address] [place], [address] Basic Metabolic Profile (BMP) Normal 133-145 [facility] Comment on above: Result Comment: Canc elled via OM: Order cancelled - Patient discharged Performed By: #### L 100.0100, L500.2500 ####[facility] [address] [place], [address] CBC W/Diff, Automatedon 01-04 Absolute Neut Normal 2.0-7.7 [facility] Comment on above: Result Comment: Canc elled via OM: Order cancelled - Patient discharged Performed By: #### L 100.0100, L500.2500 ####[facility] [address] [place], [address] HCT Normal 37-47 [facility] Comment on above: Result Comment: Canc elled via OM: Order cancelled - Patient discharged Performed By: #### L 100.0100, L500.2500 ####[facility] [address] [place], [address] HGB Normal 12.0-15.0 [facility] Comment on above: Result Comment: Canc elled via OM: Order cancelled - Patient discharged Performed By: #### L 100.0100, L500.2500 ####[facility] [address] [place], [address] MCH Normal 27.0-32.0 [facility] Comment on above: Result Comment: Canc elled via OM: Order cancelled - Patient discharged Performed By: #### L 100.0100, L500.2500 ####[facility] [address] [place], [address] MCHC Normal 32-36 [facility] Comment on above: Result Comment: Canc elled via OM: Order cancelled - Patient discharged Performed By: #### L 100.0100, L500.2500 ####[facility] [address] [place], [address] MCV Normal 81-99 [facility] Comment on above: Result Comment: Canc elled via OM: Order cancelled - Patient discharged Performed By: #### L 100.0100, L500.2500 ####[facility] [address] [place], [address] NEUT% Normal 47-70 [facility] Comment on above: Result Comment: Canc elled via OM: Order cancelled - Patient discharged Performed By: #### L 100.0100, L500.2500 ####[facility] [address] [place], [address] PLT Normal 150-450 [facility] Comment on above: Result Comment: Canc elled via OM: Order cancelled - Patient discharged Performed By: #### L 100.0100, L500.2500 ####[facility] [address] [place], [address] RBC Normal 4.2-5.4 [facility] Comment on above: Result Comment: Canc elled via OM: Order cancelled - Patient discharged Performed By: #### L 100.0100, L500.2500 ####[facility] [address] [place], [address] RDW CV Normal 11.6-14.6 [facility] Comment on above: Result Comment: Canc elled via OM: Order cancelled - Patient discharged Performed By: #### L 100.0100, L500.2500 ####[facility] [address] [place], [address] RDW SD Normal 35.1-43.9 [facility] Comment on above: Result Comment: Canc elled via OM: Order cancelled - Patient discharged Performed By: #### L 100.0100, L500.2500 ####[facility] [address] [place], [address] WBC Normal 4.4-11.0 [facility] Comment on above: Result Comment: Canc elled via OM: Order cancelled - Patient discharged Performed By: #### L 100.0100, L500.2500 ####[facility] [address] [place], [address] Basic Metabolic Profile (BMP )on 01-29-2025 BUN Normal 4-19 [facility] Comment on above: Result Comment: Canc elled via OM: Order cancelled - Patient discharged Performed By: #### L 500.2500, L100.0100 ####[facility] [address] [place], [address] BUN/CRE Normal 10-20 [facility] Comment on above: Result Comment: Canc elled via OM: Order cancelled - Patient discharged Performed By: #### L 500.2500, L100.0100 ####[facility] [address] [place], [address] Calcium Normal 7.6-11.0 [facility] Comment on above: Result Comment: Canc elled via OM: Order cancelled - Patient discharged Performed By: #### L 500.2500, L100.0100 ####[facility] [address] [place], [address] CL Normal 98-108 [facility] Comment on above: Result Comment: Canc elled via OM: Order cancelled - Patient discharged Performed By: #### L 500.2500, L100.0100 ####[facility] [address] [place], [address] CO2 Normal 21.0-32.0 [facility] Comment on above: Result Comment: Canc elled via OM: Order cancelled - Patient discharged Performed By: #### L 500.2500, L100.0100 ####[facility] [address] [place], [address] CREAT,SERUM Normal 0.70-1.20 [facility] Comment on above: Result Comment: Canc elled via OM: Order cancelled - Patient discharged Performed By: #### L 500.2500, L100.0100 ####[facility] [address] [place], [address] eGFR Normal >60 [facility] Comment on above: Result Comment: Canc elled via OM: Order cancelled - Patient discharged Performed By: #### L 500.2500, L100.0100 ####[facility] [address] [place], [address] GAP Normal 5-15 [facility] Comment on above: Result Comment: Canc elled via OM: Order cancelled - Patient discharged Performed By: #### L 500.2500, L100.0100 ####[facility] [address] [place], [address] GLU Normal 70-99 [facility] Comment on above: Result Comment: Canc elled via OM: Order cancelled - Patient discharged Performed By: #### L 500.2500, L100.0100 ####[facility] [address] [place], [address] Potassium Normal 3.3-5.1 [facility] Comment on above: Result Comment: Canc elled via OM: Order cancelled - Patient discharged Performed By: #### L 500.2500, L100.0100 ####[facility] [address] [place], [address] Basic Metabolic Profile (BMP) Normal 133-145 [facility] Comment on above: Result Comment: Canc elled via OM: Order cancelled - Patient discharged Performed By: #### L 500.2500, L100.0100 ####[facility] [address] [place], [address] CBC W/Diff, Automatedon 08-2 Absolute Neut Normal 2.0-7.7 [facility] Comment on above: Result Comment: Canc elled via OM: Order cancelled - Patient discharged Performed By: #### L 500.2500, L100.0100 ####[facility] [address] [place], [address] HCT Normal 37-47 [facility] Comment on above: Result Comment: Canc elled via OM: Order cancelled - Patient discharged Performed By: #### L 500.2500, L100.0100 ####[facility] [address] [place], [address] HGB Normal 12.0-15.0 [facility] Comment on above: Result Comment: Canc elled via OM: Order cancelled - Patient discharged Performed By: #### L 500.2500, L100.0100 ####[facility] [address] [place], [address] MCH Normal 27.0-32.0 [facility] Comment on above: Result Comment: Canc elled via OM: Order cancelled - Patient discharged Performed By: #### L 500.2500, L100.0100 ####[facility] [address] [place], [address] MCHC Normal 32-36 [facility] Comment on above: Result Comment: Canc elled via OM: Order cancelled - Patient discharged Performed By: #### L 500.2500, L100.0100 ####[facility] [address] [place], [address] MCV Normal 81-99 [facility] Comment on above: Result Comment: Canc elled via OM: Order cancelled - Patient discharged Performed By: #### L 500.2500, L100.0100 ####[facility] [address] [place], [address] NEUT% Normal 47-70 [facility] Comment on above: Result Comment: Canc elled via OM: Order cancelled - Patient discharged Performed By: #### L 500.2500, L100.0100 ####[facility] [address] [place], [address] PLT Normal 150-450 [facility] Comment on above: Result Comment: Canc elled via OM: Order cancelled - Patient discharged Performed By: #### L 500.2500, L100.0100 ####[facility] [address] [place], [address] RBC Normal 4.2-5.4 [facility] Comment on above: Result Comment: Canc elled via OM: Order cancelled - Patient discharged Performed By: #### L 500.2500, L100.0100 ####[facility] [address] [place], [address] RDW CV Normal 11.6-14.6 [facility] Comment on above: Result Comment: Canc elled via OM: Order cancelled - Patient discharged Performed By: #### L 500.2500, L100.0100 ####[facility] [address] [place], [address] RDW SD Normal 35.1-43.9 [facility] Comment on above: Result Comment: Canc elled via OM: Order cancelled - Patient discharged Performed By: #### L 500.2500, L100.0100 ####[facility] [address] [place], [address] WBC Normal 4.4-11.0 [facility] Comment on above: Result Comment: Canc elled via OM: Order cancelled - Patient discharged Performed By: #### L 500.2500, L100.0100 ####[facility] [address] [place], [address] Basic Metabolic Profile (BMP )on 01-28-2025 BUN Normal 4-19 [facility] Comment on above: Result Comment: Canc elled via OM: Order cancelled - Patient discharged Performed By: #### L 500.2500, L100.0100 ####[facility] [address] [place], [address] BUN/CRE Normal 10-20 [facility] Comment on above: Result Comment: Canc elled via OM: Order cancelled - Patient discharged Performed By: #### L 500.2500, L100.0100 ####[facility] [address] [place], [address] Calcium Normal 7.6-11.0 [facility] Comment on above: Result Comment: Canc elled via OM: Order cancelled - Patient discharged Performed By: #### L 500.2500, L100.0100 ####[facility] [address] [place], [address] CL Normal 98-108 [facility] Comment on above: Result Comment: Canc elled via OM: Order cancelled - Patient discharged Performed By: #### L 500.2500, L100.0100 ####[facility] [address] [place], [address] CO2 Normal 21.0-32.0 [facility] Comment on above: Result Comment: Canc elled via OM: Order cancelled - Patient discharged Performed By: #### L 500.2500, L100.0100 ####[facility] [address] [place], [address] CREAT,SERUM Normal 0.70-1.20 [facility] Comment on above: Result Comment: Canc elled via OM: Order cancelled - Patient discharged Performed By: #### L 500.2500, L100.0100 ####[facility] [address] [place], [address] eGFR Normal >60 [facility] Comment on above: Result Comment: Canc elled via OM: Order cancelled - Patient discharged Performed By: #### L 500.2500, L100.0100 ####[facility] [address] [place], [address] GAP Normal 5-15 [facility] Comment on above: Result Comment: Canc elled via OM: Order cancelled - Patient discharged Performed By: #### L 500.2500, L100.0100 ####[facility] [address] [place], [address] GLU Normal 70-99 [facility] Comment on above: Result Comment: Canc elled via OM: Order cancelled - Patient discharged Performed By: #### L 500.2500, L100.0100 ####[facility] [address] [place], [address] Potassium Normal 3.3-5.1 [facility] Comment on above: Result Comment: Canc elled via OM: Order cancelled - Patient discharged Performed By: #### L 500.2500, L100.0100 ####[facility] [address] [place], [address] Basic Metabolic Profile (BMP) Normal 133-145 [facility] Comment on above: Result Comment: Canc elled via OM: Order cancelled - Patient discharged Performed By: #### L 500.2500, L100.0100 ####[facility] [address] [place], [address] CBC W/Diff, Automatedon 08-2 Absolute Neut Normal 2.0-7.7 [facility] Comment on above: Result Comment: Canc elled via OM: Order cancelled - Patient discharged Performed By: #### L 500.2500, L100.0100 ####[facility] [address] [place], [address] HCT Normal 37-47 [facility] Comment on above: Result Comment: Canc elled via OM: Order cancelled - Patient discharged Performed By: #### L 500.2500, L100.0100 ####[facility] [address] [place], [address] HGB Normal 12.0-15.0 [facility] Comment on above: Result Comment: Canc elled via OM: Order cancelled - Patient discharged Performed By: #### L 500.2500, L100.0100 ####[facility] [address] [place], [address] MCH Normal 27.0-32.0 [facility] Comment on above: Result Comment: Canc elled via OM: Order cancelled - Patient discharged Performed By: #### L 500.2500, L100.0100 ####[facility] [address] [place], [address] MCHC Normal 32-36 [facility] Comment on above: Result Comment: Canc elled via OM: Order cancelled - Patient discharged Performed By: #### L 500.2500, L100.0100 ####[facility] [address] [place], [address] MCV Normal 81-99 [facility] Comment on above: Result Comment: Canc elled via OM: Order cancelled - Patient discharged Performed By: #### L 500.2500, L100.0100 ####[facility] [address] [place], [address] NEUT% Normal 47-70 [facility] Comment on above: Result Comment: Canc elled via OM: Order cancelled - Patient discharged Performed By: #### L 500.2500, L100.0100 ####[facility] [address] [place], [address] PLT Normal 150-450 [facility] Comment on above: Result Comment: Canc elled via OM: Order cancelled - Patient discharged Performed By: #### L 500.2500, L100.0100 ####[facility] [address] [place], [address] RBC Normal 4.2-5.4 [facility] Comment on above: Result Comment: Canc elled via OM: Order cancelled - Patient discharged Performed By: #### L 500.2500, L100.0100 ####[facility] [address] [place], [address] RDW CV Normal 11.6-14.6 [facility] Comment on above: Result Comment: Canc elled via OM: Order cancelled - Patient discharged Performed By: #### L 500.2500, L100.0100 ####[facility] [address] [place], [address] RDW SD Normal 35.1-43.9 [facility] Comment on above: Result Comment: Canc elled via OM: Order cancelled - Patient discharged Performed By: #### L 500.2500, L100.0100 ####[facility] [address] [place], [address] WBC Normal 4.4-11.0 [facility] Comment on above: Result Comment: Canc elled via OM: Order cancelled - Patient discharged Performed By: #### L 500.2500, L100.0100 ####[facility] [address] [place], [address] Basic Metabolic Profile (BMP )on 01-27-2025 BUN Normal 4-19 [facility] Comment on above: Result Comment: Canc elled via OM: Order cancelled - Patient discharged Performed By: #### L 100.0100, L500.2500 ####[facility] [address] [place], [address] BUN/CRE Normal 10-20 [facility] Comment on above: Result Comment: Canc elled via OM: Order cancelled - Patient discharged Performed By: #### L 100.0100, L500.2500 ####[facility] [address] [place], [address] Calcium Normal 7.6-11.0 [facility] Comment on above: Result Comment: Canc elled via OM: Order cancelled - Patient discharged Performed By: #### L 100.0100, L500.2500 ####[facility] [address] [place], [address] CL Normal 98-108 [facility] Comment on above: Result Comment: Canc elled via OM: Order cancelled - Patient discharged Performed By: #### L 100.0100, L500.2500 ####[facility] [address] [place], [address] CO2 Normal 21.0-32.0 [facility] Comment on above: Result Comment: Canc elled via OM: Order cancelled - Patient discharged Performed By: #### L 100.0100, L500.2500 ####[facility] [address] [place], [address] CREAT,SERUM Normal 0.70-1.20 [facility] Comment on above: Result Comment: Canc elled via OM: Order cancelled - Patient discharged Performed By: #### L 100.0100, L500.2500 ####[facility] [address] [place], [address] eGFR Normal >60 [facility] Comment on above: Result Comment: Canc elled via OM: Order cancelled - Patient discharged Performed By: #### L 100.0100, L500.2500 ####[facility] [address] [place], [address] GAP Normal 5-15 [facility] Comment on above: Result Comment: Canc elled via OM: Order cancelled - Patient discharged Performed By: #### L 100.0100, L500.2500 ####[facility] [address] [place], [address] GLU Normal 70-99 [facility] Comment on above: Result Comment: Canc elled via OM: Order cancelled - Patient discharged Performed By: #### L 100.0100, L500.2500 ####[facility] [address] [place], [address] Potassium Normal 3.3-5.1 [facility] Comment on above: Result Comment: Canc elled via OM: Order cancelled - Patient discharged Performed By: #### L 100.0100, L500.2500 ####[facility] [address] [place], [address] Basic Metabolic Profile (BMP) Normal 133-145 [facility] Comment on above: Result Comment: Canc elled via OM: Order cancelled - Patient discharged Performed By: #### L 100.0100, L500.2500 ####[facility] [address] [place], [address] CBC W/Diff, Automatedon 08-2 -2024 Absolute Neut Normal 2.0-7.7 [facility] Comment on above: Result Comment: Canc elled via OM: Order cancelled - Patient discharged Performed By: #### L 100.0100, L500.2500 ####[facility] [address] [place], [address] HCT Normal 37-47 [facility] Comment on above: Result Comment: Canc elled via OM: Order cancelled - Patient discharged Performed By: #### L 100.0100, L500.2500 ####[facility] [address] [place], [address] HGB Normal 12.0-15.0 [facility] Comment on above: Result Comment: Canc elled via OM: Order cancelled - Patient discharged Performed By: #### L 100.0100, L500.2500 ####[facility] [address] [place], [address] MCH Normal 27.0-32.0 [facility] Comment on above: Result Comment: Canc elled via OM: Order cancelled - Patient discharged Performed By: #### L 100.0100, L500.2500 ####[facility] [address] [place], [address] MCHC Normal 32-36 [facility] Comment on above: Result Comment: Canc elled via OM: Order cancelled - Patient discharged Performed By: #### L 100.0100, L500.2500 ####[facility] [address] [place], [address] MCV Normal 81-99 [facility] Comment on above: Result Comment: Canc elled via OM: Order cancelled - Patient discharged Performed By: #### L 100.0100, L500.2500 ####[facility] [address] [place], [address] NEUT% Normal 47-70 [facility] Comment on above: Result Comment: Canc elled via OM: Order cancelled - Patient discharged Performed By: #### L 100.0100, L500.2500 ####[facility] [address] [place], [address] PLT Normal 150-450 [facility] Comment on above: Result Comment: Canc elled via OM: Order cancelled - Patient discharged Performed By: #### L 100.0100, L500.2500 ####[facility] [address] [place], [address] RBC Normal 4.2-5.4 [facility] Comment on above: Result Comment: Canc elled via OM: Order cancelled - Patient discharged Performed By: #### L 100.0100, L500.2500 ####[facility] [address] [place], [address] RDW CV Normal 11.6-14.6 [facility] Comment on above: Result Comment: Canc elled via OM: Order cancelled - Patient discharged Performed By: #### L 100.0100, L500.2500 ####[facility] [address] [place], [address] RDW SD Normal 35.1-43.9 [facility] Comment on above: Result Comment: Canc elled via OM: Order cancelled - Patient discharged Performed By: #### L 100.0100, L500.2500 ####[facility] [address] [place], [address] WBC Normal 4.4-11.0 [facility] Comment on above: Result Comment: Canc elled via OM: Order cancelled - Patient discharged Performed By: #### L 100.0100, L500.2500 ####[facility] [address] [place], [address] Basic Metabolic Profile (BMP )on 01-26-2025 BUN Normal 4-19 [facility] Comment on above: Result Comment: Canc elled via OM: Order cancelled - Patient discharged Performed By: #### L 100.0100, L500.2500 ####[facility] [address] [place], [address] BUN/CRE Normal 10-20 [facility] Comment on above: Result Comment: Canc elled via OM: Order cancelled - Patient discharged Performed By: #### L 100.0100, L500.2500 ####[facility] [address] [place], [address] Calcium Normal 7.6-11.0 [facility] Comment on above: Result Comment: Canc elled via OM: Order cancelled - Patient discharged Performed By: #### L 100.0100, L500.2500 ####[facility] [address] [place], [address] CL Normal 98-108 [facility] Comment on above: Result Comment: Canc elled via OM: Order cancelled - Patient discharged Performed By: #### L 100.0100, L500.2500 ####[facility] [address] [place], [address] CO2 Normal 21.0-32.0 [facility] Comment on above: Result Comment: Canc elled via OM: Order cancelled - Patient discharged Performed By: #### L 100.0100, L500.2500 ####[facility] [address] [place], [address] CREAT,SERUM Normal 0.70-1.20 [facility] Comment on above: Result Comment: Canc elled via OM: Order cancelled - Patient discharged Performed By: #### L 100.0100, L500.2500 ####[facility] [address] [place], [address] eGFR Normal >60 [facility] Comment on above: Result Comment: Canc elled via OM: Order cancelled - Patient discharged Performed By: #### L 100.0100, L500.2500 ####[facility] [address] [place], [address] GAP Normal 5-15 [facility] Comment on above: Result Comment: Canc elled via OM: Order cancelled - Patient discharged Performed By: #### L 100.0100, L500.2500 ####[facility] [address] [place], [address] GLU Normal 70-99 [facility] Comment on above: Result Comment: Canc elled via OM: Order cancelled - Patient discharged Performed By: #### L 100.0100, L500.2500 ####[facility] [address] [place], [address] Potassium Normal 3.3-5.1 [facility] Comment on above: Result Comment: Canc elled via OM: Order cancelled - Patient discharged Performed By: #### L 100.0100, L500.2500 ####[facility] [address] [place], [address] Basic Metabolic Profile (BMP) Normal 133-145 [facility] Comment on above: Result Comment: Canc elled via OM: Order cancelled - Patient discharged Performed By: #### L 100.0100, L500.2500 ####[facility] [address] [place], [address] CBC W/Diff, Automatedon 08-2 Absolute Neut Normal 2.0-7.7 [facility] Comment on above: Result Comment: Canc elled via OM: Order cancelled - Patient discharged Performed By: #### L 100.0100, L500.2500 ####[facility] [address] [place], [address] HCT Normal 37-47 [facility] Comment on above: Result Comment: Canc elled via OM: Order cancelled - Patient discharged Performed By: #### L 100.0100, L500.2500 ####[facility] [address] [place], [address] HGB Normal 12.0-15.0 [facility] Comment on above: Result Comment: Canc elled via OM: Order cancelled - Patient discharged Performed By: #### L 100.0100, L500.2500 ####[facility] [address] [place], [address] MCH Normal 27.0-32.0 [facility] Comment on above: Result Comment: Canc elled via OM: Order cancelled - Patient discharged Performed By: #### L 100.0100, L500.2500 ####[facility] [address] [place], [address] MCHC Normal 32-36 [facility] Comment on above: Result Comment: Canc elled via OM: Order cancelled - Patient discharged Performed By: #### L 100.0100, L500.2500 ####[facility] [address] [place], [address] MCV Normal 81-99 [facility] Comment on above: Result Comment: Canc elled via OM: Order cancelled - Patient discharged Performed By: #### L 100.0100, L500.2500 ####[facility] [address] [place], [address] NEUT% Normal 47-70 [facility] Comment on above: Result Comment: Canc elled via OM: Order cancelled - Patient discharged Performed By: #### L 100.0100, L500.2500 ####[facility] [address] [place], [address] PLT Normal 150-450 [facility] Comment on above: Result Comment: Canc elled via OM: Order cancelled - Patient discharged Performed By: #### L 100.0100, L500.2500 ####[facility] [address] [place], [address] RBC Normal 4.2-5.4 [facility] Comment on above: Result Comment: Canc elled via OM: Order cancelled - Patient discharged Performed By: #### L 100.0100, L500.2500 ####[facility] [address] [place], [address] RDW CV Normal 11.6-14.6 [facility] Comment on above: Result Comment: Canc elled via OM: Order cancelled - Patient discharged Performed By: #### L 100.0100, L500.2500 ####[facility] [address] [place], [address] RDW SD Normal 35.1-43.9 [facility] Comment on above: Result Comment: Canc elled via OM: Order cancelled - Patient discharged Performed By: #### L 100.0100, L500.2500 ####[facility] [address] [place], [address] WBC Normal 4.4-11.0 [facility] Comment on above: Result Comment: Canc elled via OM: Order cancelled - Patient discharged Performed By: #### L 100.0100, L500.2500 ####[facility] [address] [place], [address] Absolute lymphocyte countOrd ered By: Christineharpal Borges on 01-25-2025 Lymphocytes Auto (Unsp spec) [#/Vol] 0.86 10*3/uL 0.83-4.51 [facility] Absolute neutrophil countOrd ered By: Christineharpal Borges on 01-25-2025 Neutrophils (Bld) [#/Vol] 14.8 10*3/uL High 2.0-7.7 [facility] Anion gap in Serum or Plasma Ordered By: Christine Borges on 01-25-2025 Anion gap [Moles/Vol] 14 mmol/L 5-15 [facility] Automated lymphocyte count a s percentage of total leukocytesOrdered By: Christine Borges on 01-25-2025 Lymphocytes/100 WBC Auto (Unsp spec) 5.2 % Low 19-41 [facility] BUN/creatinine ratioOrdered By: Christine Borges on 01-25-2025 Urea nitrogen/Creatinine [Mass ratio] 32.2 mg/mg High 10-20 [facility] Basic Metabolic Profile (BMP )on 01-25-2025 BUN/CRE 32.2 RATIO High 10-20 [facility] Comment on above: Performed By: #### L 100.0100, L500.2500 ####[facility] [address] [place], [address] Calcium [Mass/Vol] 8.8 mg/dL Normal 7.6-11.0 [facility] Comment on above: Performed By: #### L 100.0100, L500.2500 ####[facility] [address] [place], [address] Chloride [Moles/Vol] 97 mmol/L Low 98-108 [facility] Comment on above: Performed By: #### L 100.0100, L500.2500 ####[facility] [address] [place], [address] CO2 [Moles/Vol] 27.4 mmol/L Normal 21.0-32.0 [facility] Comment on above: Performed By: #### L 100.0100, L500.2500 ####[facility] [address] [place], [address] Creatinine [Mass/Vol] 0.84 mg/dL Normal 0.70-1.20 [facility] Comment on above: Performed By: #### L 100.0100, L500.2500 ####[facility] [address] [place], [address] ECRCL 39.01 ml/min Low 50-250 [facility] Comment on above: Performed By: #### L 100.0100, L500.2500 ####[facility] [address] [place], [address] GAP 14 Normal 5-15 [facility] Comment on above: Performed By: #### L 100.0100, L500.2500 ####[facility] [address] [place], [address] GFR/1.73 sq M.predicted among non-blacks MDRD (S/P/Bld) [Vol rate/Area] 71 mL/min/{1.73_m2} Normal >60 [facility] Comment on above: Result Comment: mL/m in/1.73m2 CKD-EPI Creatinine Equation (2020) Performed By: #### L 100.0100, L500.2500 ####[facility] [address] [place], [address] Glucose [Mass/Vol] 148 mg/dL High 70-99 [facility] Comment on above: Performed By: #### L 100.0100, L500.2500 ####[facility] [address] [place], [address] Potassium [Moles/Vol] 4.1 mmol/L Normal 3.3-5.1 [facility] Comment on above: Performed By: #### L 100.0100, L500.2500 ####[facility] [address] [place], [address] Sodium [Moles/Vol] 138 mmol/L Normal 133-145 [facility] Comment on above: Performed By: #### L 100.0100, L500.2500 ####[facility] [address] [place], [address] Urea nitrogen [Mass/Vol] 27 mg/dL High 4-19 [facility] Comment on above: Performed By: #### L 100.0100, L500.2500 ####[facility] [address] [place], [address] Basophil percentageOrdered B y: Christine Borges on 01-25-2025 Basophils/100 WBC (Bld) 0.1 % 0-1 [facility] CBC W/Diff, Automatedon 01-04 Absolute Lymph 0.86 X10 3/uL Normal 0.83-4.51 [facility] Comment on above: Performed By: #### L 100.0100, L500.2500 ####[facility] [address] [place], [address] Absolute Neut 14.8 X10 3/uL High 2.0-7.7 [facility] Comment on above: Performed By: #### L 100.0100, L500.2500 ####[facility] [address] [place], [address] Basophils/100 WBC (Bld) 0.1 % Normal 0-1 [facility] Comment on above: Performed By: #### L 100.0100, L500.2500 ####[facility] [address] [place], [address] Eosinophils/100 WBC (Bld) 0.0 % Normal 0-5 [facility] Comment on above: Performed By: #### L 100.0100, L500.2500 ####[facility] [address] [place], [address] Erythrocyte distribution width (RBC) [Ratio] 14.7 % High 11.6-14.6 [facility] Comment on above: Performed By: #### L 100.0100, L500.2500 ####[facility] [address] [place], [address] Hematocrit (Bld) [Volume fraction] 46.3 % Normal 37-47 [facility] Comment on above: Performed By: #### L 100.0100, L500.2500 ####[facility] [address] [place], [address] Hemoglobin (Bld) [Mass/Vol] 15.6 g/dL High 12.0-15.0 [facility] Comment on above: Performed By: #### L 100.0100, L500.2500 ####[facility] [address] [place], [address] IG% 0.800 Normal 0.0-0.9 [facility] Comment on above: Result Comment: IG% - Immature Granulocytes (promyelocytes, myelocytes andmetamyelocytes) > 1% indicates that a LEFT SHIFT is Present. Performed By: #### L 100.0100, L500.2500 ####[facility] [address] [place], [address] Lymphocytes/100 WBC (Bld) 5.2 % Low 19-41 [facility] Comment on above: Performed By: #### L 100.0100, L500.2500 ####[facility] [address] [place], [address] MCH (RBC) [Entitic mass] 28.8 pg Normal 27.0-32.0 [facility] Comment on above: Performed By: #### L 100.0100, L500.2500 ####[facility] [address] [place], [address] MCHC (RBC) [Mass/Vol] 33.7 g/dL Normal 32-36 [facility] Comment on above: Performed By: #### L 100.0100, L500.2500 ####[facility] [address] [place], [address] MCV (RBC) [Entitic vol] 85.6 fL Normal 81-99 [facility] Comment on above: Performed By: #### L 100.0100, L500.2500 ####[facility] [address] [place], [address] Monocytes/100 WBC (Bld) 4.5 % Normal 0-10 [facility] Comment on above: Performed By: #### L 100.0100, L500.2500 ####[facility] [address] [place], [address] Neutrophils/100 WBC (Bld) 89.4 % High 47-70 [facility] Comment on above: Performed By: #### L 100.0100, L500.2500 ####[facility] [address] [place], [address] Nucleated RBC (Bld) [#/Vol] 0 10*3/uL Normal 0-5 [facility] Comment on above: Performed By: #### L 100.0100, L500.2500 ####[facility] [address] [place], [address] Platelet mean volume (Bld) [Entitic vol] 8.7 fL Normal 6.2-12.0 [facility] Comment on above: Performed By: #### L 100.0100, L500.2500 ####[facility] [address] [place], [address] Platelets (Bld) [#/Vol] 383 10*3/uL Normal 150-450 [facility] Comment on above: Performed By: #### L 100.0100, L500.2500 ####[facility] [address] [place], [address] RBC (Bld) [#/Vol] 5.41 10*6/uL High 4.2-5.4 [facility] Comment on above: Performed By: #### L 100.0100, L500.2500 ####[facility] [address] [place], [address] RDW SD 46.2 fl High 35.1-43.9 [facility] Comment on above: Performed By: #### L 100.0100, L500.2500 ####[facility] [address] [place], [address] WBC (Bld) [#/Vol] 16.5 10*3/uL High 4.4-11.0 [facility] Comment on above: Performed By: #### L 100.0100, L500.2500 ####[facility] [address] [place], [address] Carbon dioxide, total [Moles /volume] in Central venous bloodOrdered By: Christine Borges on 01-25-2025 CO2 [Moles/Vol] 27.4 mmol/L 21.0-32.0 [facility] Chloride assayOrdered By: Alida Borges on 01-25-2025 Chloride [Moles/Vol] 97 mmol/L Low 98-108 [facility] Discharge Instructionon 01-04 Discharge Instruction Normal [facility] Eosinophil percentageOrdered By: Christine Borges on 01-25-2025 Eosinophils/100 WBC (Bld) 0.0 % 0-5 [facility] Erythrocyte distribution wid th ratioOrdered By: Christine Borges on 01-25-2025 Erythrocyte distribution width (RBC) [Ratio] 14.7 % High 11.6-14.6 [facility] Erythrocyte distribution wid th standard deviationOrdered By: Christine Borges on 01-25-2025 Erythrocyte distribution width (RBC) [Ratio] 46.2 fl High 35.1-43.9 [facility] Glomerular filtration rate ( GFR) estimation/1.73 sq m using serum, plasma, or whole bOrdered By: Christine Borges on 01-25-2025 GFR/1.73 sq M.predicted among non-blacks MDRD (S/P/Bld) [Vol rate/Area] 71 mL/min/{1.73_m2} >60 [facility] Comment on above: mL/min/1.73m2 CKD-EP I Creatinine Equation (2020) Hematocrit Auto (Bld) [Volum e fraction]Ordered By: Christine Borges 01-25-2025 Hematocrit (Bld) [Volume fraction] 46.3 % 37-47 [facility] Hemoglobin measurementOrdere d By: Christineharpal Borges 01-25-2025 Hemoglobin (Bld) [Mass/Vol] 15.6 g/dL High 12.0-15.0 [facility] Immature granulocytes/100 WB C Auto (Bld)Ordered By: Christine Borges 01-25-2025 Immature granulocytes/100 WBC (Bld) 0.800 % 0.0-0.9 [facility] Comment on above: IG% - Immature Granu locytes (promyelocytes, myelocytes and metamyelocytes) > 1% indicates that a LEFT SHIFT is Present. International normalized rat io (INR) calculationOrdered By: Christine Borges 01-25-2025 INR Coag (Bld) [Relative time] 2.6 {INR} [facility] MCV (mean corpuscular volume ) determinationOrdered By: Crhistine Borges 01-25-2025 MCV (RBC) [Entitic vol] 85.6 fL 81-99 [facility] Mean corpuscular hemoglobin (MCH) determinationOrdered By: Christine Borges 01-25-2025 MCH (RBC) [Entitic mass] 28.8 pg 27.0-32.0 [facility] Mean corpuscular hemoglobin concentration (MCHC) determinationOrdered By: Christine Borges on 01-25-2025 MCHC (RBC) [Mass/Vol] 33.7 g/dL 32-36 [facility] Mean platelet volume determi nationOrdered By: Christine Borges on 01-25-2025 Platelet mean volume (Bld) [Entitic vol] 8.7 fL 6.2-12.0 [facility] Monocyte percentageOrdered B y: Christine Borges on 01-25-2025 Monocytes/100 WBC (Bld) 4.5 % 0-10 [facility] Neutrophil percentageOrdered By: Christine Borges on 01-25-2025 Neutrophils/100 WBC (Bld) 89.4 % High 47-70 [facility] Nucleated red blood cell per centageOrdered By: Christine Borges on 01-25-2025 Nucleated RBC/100 WBC (Bld) [Ratio] 0 % 0-5 [facility] Platelet countOrdered By: Na alida Borges on 01-25-2025 Platelets (Bld) [#/Vol] 383 10*3/uL 150-450 [facility] Potassium measurement (mass/ volume)Ordered By: Christine Borges on 01-25-2025 Potassium (Unsp spec) [Mass/Vol] 4.1 mmol/L 3.3-5.1 [facility] Prothrombin Time w/INRon INR Coag (PPP) [Relative time] 2.6 {INR} Normal [facility] Comment on above: Performed By: #### L 300.3900 ####[facility] [address] [place], [place], [address] PT Coag (PPP) [Time] 28.7 s High 11.7-14.9 [facility] Comment on above: Performed By: #### L 300.3900 ####[facility] [address] [place], [place], [address] Prothrombin timeOrdered By: Christine Borges on 01-25-2025 PT Coag (PPP) [Time] 28.7 s High 11.7-14.9 [facility] RBC Auto (Bld) [#/Vol]Ordere d By: Christine Katerina on 01-25-2025 RBC (Bld) [#/Vol] 5.41 10*6/uL High 4.2-5.4 [facility] Serum creatinine measurement (mass/volume)Ordered By: Christine Borges on 01-25-2025 Creatinine [Mass/Vol] 0.84 mg/dL 0.70-1.20 [facility] Serum glucose measurement (m ass/volume)Ordered By: Christine Borges on 01-25-2025 Glucose [Mass/Vol] 148 mg/dL High 70-99 [facility] Serum or plasma calcium mahnaz urement (mass/volume)Ordered By: Christine Borges on 01-25-2025 Calcium [Mass/Vol] 8.8 mg/dL 7.6-11.0 [facility] Serum or plasma urea nitroge n measurement (mass/volume)Ordered By: Christine Borges on 01-25-2025 Urea nitrogen [Mass/Vol] 27 mg/dL High 4-19 [facility] Sodium levelOrdered By: Christine Borges on 01-25-2025 Sodium [Moles/Vol] 138 mmol/L 133-145 [facility] White blood cell (WBC) count Ordered By: Christine Borges on 01-25-2025 WBC (Bld) [#/Vol] 16.5 10*3/uL High 4.4-11.0 [facility] Basic Metabolic Profile (BMP )on 01-24-2025 BUN/CRE 28.0 RATIO High 10-20 [facility] Comment on above: Performed By: #### L 500.2500, L100.0100 ####[facility] [address] [place], [address] Calcium [Mass/Vol] 8.7 mg/dL Normal 7.6-11.0 [facility] Comment on above: Performed By: #### L 500.2500, L100.0100 ####[facility] [address] [place], [address] Chloride [Moles/Vol] 96 mmol/L Low 98-108 [facility] Comment on above: Performed By: #### L 500.2500, L100.0100 ####[facility] [address] [place], [address] CO2 [Moles/Vol] 25.2 mmol/L Normal 21.0-32.0 [facility] Comment on above: Performed By: #### L 500.2500, L100.0100 ####[facility] [address] [place], [address] Creatinine [Mass/Vol] 0.76 mg/dL Normal 0.70-1.20 [facility] Comment on above: Performed By: #### L 500.2500, L100.0100 ####[facility] [address] [place], [address] ECRCL 40.96 ml/min Low 50-250 [facility] Comment on above: Performed By: #### L 500.2500, L100.0100 ####[facility] [address] [place], [address] GAP 14 Normal 5-15 [facility] Comment on above: Performed By: #### L 500.2500, L100.0100 ####[facility] [address] [place], [address] GFR/1.73 sq M.predicted among non-blacks MDRD (S/P/Bld) [Vol rate/Area] 80 mL/min/{1.73_m2} Normal >60 [facility] Comment on above: Result Comment: mL/m in/1.73m2 CKD-EPI Creatinine Equation (2020) Performed By: #### L 500.2500, L100.0100 ####[facility] [address] [place], [address] Glucose [Mass/Vol] 152 mg/dL High 70-99 [facility] Comment on above: Performed By: #### L 500.2500, L100.0100 ####[facility] [address] [place], [address] Potassium [Moles/Vol] 4.3 mmol/L Normal 3.3-5.1 [facility] Comment on above: Performed By: #### L 500.2500, L100.0100 ####[facility] [address] [place], [address] Sodium [Moles/Vol] 135 mmol/L Normal 133-145 [facility] Comment on above: Performed By: #### L 500.2500, L100.0100 ####[facility] [address] [place], [address] Urea nitrogen [Mass/Vol] 21 mg/dL High 4-19 [facility] Comment on above: Performed By: #### L 500.2500, L100.0100 ####[facility] [address] [place], [address] CBC W/Diff, Automatedon 082 -2024 Absolute Lymph 0.67 X10 3/uL Low 0.83-4.51 [facility] Comment on above: Performed By: #### L 500.2500, L100.0100 ####[facility] [address] [place], [address] Absolute Neut 15.9 X10 3/uL High 2.0-7.7 [facility] Comment on above: Performed By: #### L 500.2500, L100.0100 ####[facility] [address] [place], [address] Basophils/100 WBC (Bld) 0.1 % Normal 0-1 [facility] Comment on above: Performed By: #### L 500.2500, L100.0100 ####[facility] [address] [place], [address] Eosinophils/100 WBC (Bld) 0.0 % Normal 0-5 [facility] Comment on above: Performed By: #### L 500.2500, L100.0100 ####[facility] [address] [place], [address] Erythrocyte distribution width (RBC) [Ratio] 14.6 % Normal 11.6-14.6 [facility] Comment on above: Performed By: #### L 500.2500, L100.0100 ####[facility] [address] [place], [address] Hematocrit (Bld) [Volume fraction] 41.6 % Normal 37-47 [facility] Comment on above: Performed By: #### L 500.2500, L100.0100 ####[facility] [address] [place], [address] Hemoglobin (Bld) [Mass/Vol] 14.0 g/dL Normal 12.0-15.0 [facility] Comment on above: Performed By: #### L 500.2500, L100.0100 ####[facility] [address] [place], [address] IG% 0.800 Normal 0.0-0.9 [facility] Comment on above: Result Comment: IG% - Immature Granulocytes (promyelocytes, myelocytes andmetamyelocytes) > 1% indicates that a LEFT SHIFT is Present. Performed By: #### L 500.2500, L100.0100 ####[facility] [address] [place], [address] Lymphocytes/100 WBC (Bld) 3.9 % Low 19-41 [facility] Comment on above: Performed By: #### L 500.2500, L100.0100 ####[facility] [address] [place], [address] MCH (RBC) [Entitic mass] 28.8 pg Normal 27.0-32.0 [facility] Comment on above: Performed By: #### L 500.2500, L100.0100 ####[facility] [address] [place], [address] MCHC (RBC) [Mass/Vol] 33.7 g/dL Normal 32-36 [facility] Comment on above: Performed By: #### L 500.2500, L100.0100 ####[facility] [address] [place], [address] MCV (RBC) [Entitic vol] 85.6 fL Normal 81-99 [facility] Comment on above: Performed By: #### L 500.2500, L100.0100 ####[facility] [address] [place], [address] Monocytes/100 WBC (Bld) 2.5 % Normal 0-10 [facility] Comment on above: Performed By: #### L 500.2500, L100.0100 ####[facility] [address] [place], [address] Neutrophils/100 WBC (Bld) 92.7 % High 47-70 [facility] Comment on above: Performed By: #### L 500.2500, L100.0100 ####[facility] [address] [place], [address] Nucleated RBC (Bld) [#/Vol] 0 10*3/uL Normal 0-5 [facility] Comment on above: Performed By: #### L 500.2500, L100.0100 ####[facility] [address] [place], [address] Platelet mean volume (Bld) [Entitic vol] 9.3 fL Normal 6.2-12.0 [facility] Comment on above: Performed By: #### L 500.2500, L100.0100 ####[facility] [address] [place], [address] Platelets (Bld) [#/Vol] 319 10*3/uL Normal 150-450 [facility] Comment on above: Performed By: #### L 500.2500, L100.0100 ####[facility] [address] [place], [address] RBC (Bld) [#/Vol] 4.86 10*6/uL Normal 4.2-5.4 [facility] Comment on above: Performed By: #### L 500.2500, L100.0100 ####[facility] [address] [place], [address] RDW SD 45.5 fl High 35.1-43.9 [facility] Comment on above: Performed By: #### L 500.2500, L100.0100 ####[facility] [address] [place], [address] WBC (Bld) [#/Vol] 17.2 10*3/uL High 4.4-11.0 [facility] Comment on above: Performed By: #### L 500.2500, L100.0100 ####[facility] [address] [place], [address] Prothrombin Time w/INRon INR Coag (PPP) [Relative time] 2.4 {INR} Normal [facility] Comment on above: Performed By: #### L 300.3900 ####[facility] [address] [place], [address] PT Coag (PPP) [Time] 26.5 s High 11.7-14.9 [facility] Comment on above: Performed By: #### L 300.3900 ####[facility] [address] [place], [address] Basic Metabolic Profile (BMP )on 01-23-2025 BUN/CRE 18.4 RATIO Normal 10-20 [facility] Comment on above: Performed By: #### L 500.2500 ####[facility] [address] [place], [address] Calcium [Mass/Vol] 8.4 mg/dL Normal 7.6-11.0 [facility] Comment on above: Performed By: #### L 500.2500 ####[facility] [address] [place], [address] Chloride [Moles/Vol] 97 mmol/L Low 98-108 [facility] Comment on above: Performed By: #### L 500.2500 ####[facility] [address] [place], [address] CO2 [Moles/Vol] 23.6 mmol/L Normal 21.0-32.0 [facility] Comment on above: Performed By: #### L 500.2500 ####[facility] [address] [place], [address] Creatinine [Mass/Vol] 0.76 mg/dL Normal 0.70-1.20 [facility] Comment on above: Performed By: #### L 500.2500 ####[facility] [address] [place], [address] ECRCL 40.96 ml/min Low 50-250 [facility] Comment on above: Performed By: #### L 500.2500 ####[facility] [address] [place], [address] GAP 14 Normal 5-15 [facility] Comment on above: Performed By: #### L 500.2500 ####[facility] [address] [place], [address] GFR/1.73 sq M.predicted among non-blacks MDRD (S/P/Bld) [Vol rate/Area] 80 mL/min/{1.73_m2} Normal >60 [facility] Comment on above: Result Comment: mL/m in/1.73m2 CKD-EPI Creatinine Equation (2020) Performed By: #### L 500.2500 ####[facility] [address] [place], [address] Glucose [Mass/Vol] 184 mg/dL High 70-99 [facility] Comment on above: Performed By: #### L 500.2500 ####[facility] [address] [place], [address] Potassium [Moles/Vol] 3.9 mmol/L Normal 3.3-5.1 [facility] Comment on above: Performed By: #### L 500.2500 ####[facility] [address] [place], [address] Sodium [Moles/Vol] 134 mmol/L Normal 133-145 [facility] Comment on above: Performed By: #### L 500.2500 ####[facility] [address] [place], [address] Urea nitrogen [Mass/Vol] 14 mg/dL Normal 4-19 [facility] Comment on above: Performed By: #### L 500.2500 ####[facility] [address] [place], [address] CBC-Complete Blood Cnt No Di ffon 01-23-2025 Erythrocyte distribution width (RBC) [Ratio] 14.6 % Normal 11.6-14.6 [facility] Comment on above: Performed By: #### L 100.0500 ####[facility] [address] [place], [address] Hematocrit (Bld) [Volume fraction] 41.5 % Normal 37-47 [facility] Comment on above: Performed By: #### L 100.0500 ####[facility] [address] [place], [address] Hemoglobin (Bld) [Mass/Vol] 14.1 g/dL Normal 12.0-15.0 [facility] Comment on above: Performed By: #### L 100.0500 ####[facility] [address] [place], [address] MCH (RBC) [Entitic mass] 29.3 pg Normal 27.0-32.0 [facility] Comment on above: Performed By: #### L 100.0500 ####[facility] [address] [place], [address] MCHC (RBC) [Mass/Vol] 34.0 g/dL Normal 32-36 [facility] Comment on above: Performed By: #### L 100.0500 ####[facility] [address] [place], [address] MCV (RBC) [Entitic vol] 86.1 fL Normal 81-99 [facility] Comment on above: Performed By: #### L 100.0500 ####[facility] [address] [place], [address] Platelet mean volume (Bld) [Entitic vol] 9.0 fL Normal 6.2-12.0 [facility] Comment on above: Performed By: #### L 100.0500 ####[facility] [address] [place], [address] Platelets (Bld) [#/Vol] 266 10*3/uL Normal 150-450 [facility] Comment on above: Performed By: #### L 100.0500 ####[facility] [address] [place], [address] RBC (Bld) [#/Vol] 4.82 10*6/uL Normal 4.2-5.4 [facility] Comment on above: Performed By: #### L 100.0500 ####[facility] [address] [place], [address] RDW SD 45.8 fl High 35.1-43.9 [facility] Comment on above: Performed By: #### L 100.0500 ####[facility] [address] [place], [address] WBC (Bld) [#/Vol] 9.1 10*3/uL Normal 4.4-11.0 [facility] Comment on above: Performed By: #### L 100.0500 ####[facility] [address] [place], [address] Prothrombin Time w/INRon INR Coag (PPP) [Relative time] 2.1 {INR} Normal [facility] Comment on above: Performed By: #### L 300.3900 ####[facility] [address] [place], [address] PT Coag (PPP) [Time] 24.3 s High 11.7-14.9 [facility] Comment on above: Performed By: #### L 300.3900 ####[facility] [address] [place], [address] Abdomen/Pelvis W IV Cont ONL Yon 01-22-2025 Abdomen/Pelvis W IV Cont ONLY Normal [facility] Absolute lymphocyte countOrd ered By: Juan Vines on 01-22-2025 Lymphocytes Auto (Unsp spec) [#/Vol] 0.70 10*3/uL Low 0.83-4.51 [facility] Absolute neutrophil countOrd ered By: Juan Vines on 01-22-2025 Neutrophils (Bld) [#/Vol] 11.4 10*3/uL High 2.0-7.7 [facility] Anion gap in Serum or Plasma Ordered By: Juan Vines on 01-22-2025 Anion gap [Moles/Vol] 14 mmol/L 5-15 [facility] Automated lymphocyte count a s percentage of total leukocytesOrdered By: Juan Vines on 01-22-2025 Lymphocytes/100 WBC Auto (Unsp spec) 5.2 % Low 19-41 [facility] BUN/creatinine ratioOrdered By: Juan Vines on 01-22-2025 Urea nitrogen/Creatinine [Mass ratio] 13.0 mg/mg 10- [facility] Basophil percentageOrdered B y: Juan Vines on 01-22-2025 Basophils/100 WBC (Bld) 0.4 % 0-1 [facility] Bilirubin Test strip Ql (U)O rdered By: Juan Mohinder on 01-22-2025 Bilirubin Ql (U) Negative Negative [facility] Bilirubin, totalOrdered By: Juan Vines on 01-22-2025 Bilirubin [Mass/Vol] 1.14 mg/dL 0.00-1.30 [facility] CBC W/Diff, Automatedon 01-04 Absolute Lymph 0.70 X10 3/uL Low 0.83-4.51 [facility] Comment on above: Performed By: #### L 300.3900, L100.0100, L501.2450, L500.4050 ####[facility] [address] [place], [address] Absolute Neut 11.4 X10 3/uL High 2.0-7.7 [facility] Comment on above: Performed By: #### L 300.3900, L100.0100, L501.2450, L500.4050 ####[facility] [address] [place], [address] Basophils/100 WBC (Bld) 0.4 % Normal 0-1 [facility] Comment on above: Performed By: #### L 300.3900, L100.0100, L501.2450, L500.4050 ####[facility] [address] [place], [address] Eosinophils/100 WBC (Bld) 0.1 % Normal 0-5 [facility] Comment on above: Performed By: #### L 300.3900, L100.0100, L501.2450, L500.4050 ####[facility] [address] [place], [address] Erythrocyte distribution width (RBC) [Ratio] 14.6 % Normal 11.6-14.6 [facility] Comment on above: Performed By: #### L 300.3900, L100.0100, L501.2450, L500.4050 ####[facility] [address] [place], [address] Hematocrit (Bld) [Volume fraction] 42.8 % Normal 37-47 [facility] Comment on above: Performed By: #### L 300.3900, L100.0100, L501.2450, L500.4050 ####[facility] [address] [place], [address] Hemoglobin (Bld) [Mass/Vol] 14.2 g/dL Normal 12.0-15.0 [facility] Comment on above: Performed By: #### L 300.3900, L100.0100, L501.2450, L500.4050 ####[facility] [address] [place], [address] IG% 0.500 Normal 0.0-0.9 [facility] Comment on above: Result Comment: IG% - Immature Granulocytes (promyelocytes, myelocytes andmetamyelocytes) > 1% indicates that a LEFT SHIFT is Present. Performed By: #### L 300.3900, L100.0100, L501.2450, L500.4050 ####[facility] [address] [place], [address] Lymphocytes/100 WBC (Bld) 5.2 % Low 19-41 [facility] Comment on above: Performed By: #### L 300.3900, L100.0100, L501.2450, L500.4050 ####[facility] [address] [place], [address] MCH (RBC) [Entitic mass] 28.6 pg Normal 27.0-32.0 [facility] Comment on above: Performed By: #### L 300.3900, L100.0100, L501.2450, L500.4050 ####[facility] [address] [place], [address] MCHC (RBC) [Mass/Vol] 33.2 g/dL Normal 32-36 [facility] Comment on above: Performed By: #### L 300.3900, L100.0100, L501.2450, L500.4050 ####[facility] [address] [place], [address] MCV (RBC) [Entitic vol] 86.3 fL Normal 81-99 [facility] Comment on above: Performed By: #### L 300.3900, L100.0100, L501.2450, L500.4050 ####[facility] [address] [place], [address] Monocytes/100 WBC (Bld) 9.4 % Normal 0-10 [facility] Comment on above: Performed By: #### L 300.3900, L100.0100, L501.2450, L500.4050 ####[facility] [address] [place], [address] Neutrophils/100 WBC (Bld) 84.4 % High 47-70 [facility] Comment on above: Performed By: #### L 300.3900, L100.0100, L501.2450, L500.4050 ####[facility] [address] [place], [address] Nucleated RBC (Bld) [#/Vol] 0 10*3/uL Normal 0-5 [facility] Comment on above: Performed By: #### L 300.3900, L100.0100, L501.2450, L500.4050 ####[facility] [address] [place], [address] Platelet mean volume (Bld) [Entitic vol] 9.4 fL Normal 6.2-12.0 [facility] Comment on above: Performed By: #### L 300.3900, L100.0100, L501.2450, L500.4050 ####[facility] [address] [place], [address] Platelets (Bld) [#/Vol] 289 10*3/uL Normal 150-450 [facility] Comment on above: Performed By: #### L 300.3900, L100.0100, L501.2450, L500.4050 ####[facility] [address] [place], [address] RBC (Bld) [#/Vol] 4.96 10*6/uL Normal 4.2-5.4 [facility] Comment on above: Performed By: #### L 300.3900, L100.0100, L501.2450, L500.4050 ####[facility] [address] [place], [address] RDW SD 46.0 fl High 35.1-43.9 [facility] Comment on above: Performed By: #### L 300.3900, L100.0100, L501.2450, L500.4050 ####[facility] [address] [place], [address] WBC (Bld) [#/Vol] 13.5 10*3/uL High 4.4-11.0 [facility] Comment on above: Performed By: #### L 300.3900, L100.0100, L501.2450, L500.4050 ####[facility] [address] [place], [address] Carbon dioxide, total [Moles /volume] in Central venous bloodOrdered By: Juan Vines on 08-20-2025 CO2 [Moles/Vol] 22.0 mmol/L 21.0-32.0 [facility] Chest PA and Lateralon 01-22 Chest PA and Lateral Normal [facility] Chloride assayOrdered By: Jacky Vines on 01-22-2025 Chloride [Moles/Vol] 94 mmol/L Low 98-108 [facility] Comprehensive Metabolic Prof ilon 01-22-2025 Albumin [Mass/Vol] 3.9 g/dL Normal 3.4-4.8 [facility] Comment on above: Performed By: #### L 300.3900, L100.0100, L501.2450, L500.4050 ####[facility] [address] [place], [address] Albumin/Globulin [Mass ratio] 1.0 {ratio} Normal 0.9-2.4 [facility] Comment on above: Performed By: #### L 300.3900, L100.0100, L501.2450, L500.4050 ####[facility] [address] [place], [address] ALK PHOS 109 U/L High 35-104 [facility] Comment on above: Performed By: #### L 300.3900, L100.0100, L501.2450, L500.4050 ####[facility] [address] [place], [address] ALT [Catalytic activity/Vol] 11 U/L Normal <=34 [facility] Comment on above: Performed By: #### L 300.3900, L100.0100, L501.2450, L500.4050 ####[facility] [address] [place], [address] AST [Catalytic activity/Vol] 20 U/L Normal <=31 [facility] Comment on above: Performed By: #### L 300.3900, L100.0100, L501.2450, L500.4050 ####[facility] [address] [place], [address] Bilirubin [Mass/Vol] 1.14 mg/dL Normal 0.00-1.30 [facility] Comment on above: Performed By: #### L 300.3900, L100.0100, L501.2450, L500.4050 ####[facility] [address] [place], [address] BUN/CRE 13.0 RATIO Normal 10-20 [facility] Comment on above: Performed By: #### L 300.3900, L100.0100, L501.2450, L500.4050 ####[facility] [address] [place], [address] Calcium [Mass/Vol] 8.6 mg/dL Normal 7.6-11.0 [facility] Comment on above: Performed By: #### L 300.3900, L100.0100, L501.2450, L500.4050 ####[facility] [address] [place], [address] Chloride [Moles/Vol] 94 mmol/L Low 98-108 [facility] Comment on above: Performed By: #### L 300.3900, L100.0100, L501.2450, L500.4050 ####[facility] [address] [place], [address] CO2 [Moles/Vol] 22.0 mmol/L Normal 21.0-32.0 [facility] Comment on above: Performed By: #### L 300.3900, L100.0100, L501.2450, L500.4050 ####[facility] [address] [place], [address] Creatinine [Mass/Vol] 0.79 mg/dL Normal 0.70-1.20 [facility] Comment on above: Performed By: #### L 300.3900, L100.0100, L501.2450, L500.4050 ####[facility] [address] [place], [address] ECRCL 43.03 ml/min Low 50-250 [facility] Comment on above: Performed By: #### L 300.3900, L100.0100, L501.2450, L500.4050 ####[facility] [address] [place], [address] GAP 14 Normal 5-15 [facility] Comment on above: Performed By: #### L 300.3900, L100.0100, L501.2450, L500.4050 ####[facility] [address] [place], [address] GFR/1.73 sq M.predicted among non-blacks MDRD (S/P/Bld) [Vol rate/Area] 77 mL/min/{1.73_m2} Normal >60 [facility] Comment on above: Result Comment: mL/m in/1.73m2 CKD-EPI Creatinine Equation (2020) Performed By: #### L 300.3900, L100.0100, L501.2450, L500.4050 ####[facility] [address] [place], [address] Globulin (S) [Mass/Vol] 3.7 g/dL Normal 2.2-4.2 [facility] Comment on above: Performed By: #### L 300.3900, L100.0100, L501.2450, L500.4050 ####[facility] [address] [place], [address] Glucose [Mass/Vol] 116 mg/dL High 70-99 [facility] Comment on above: Performed By: #### L 300.3900, L100.0100, L501.2450, L500.4050 ####[facility] [address] [place], [address] Potassium [Moles/Vol] 4.0 mmol/L Normal 3.3-5.1 [facility] Comment on above: Performed By: #### L 300.3900, L100.0100, L501.2450, L500.4050 ####[facility] [address] [place], [address] Sodium [Moles/Vol] 130 mmol/L Low 133-145 [facility] Comment on above: Performed By: #### L 300.3900, L100.0100, L501.2450, L500.4050 ####[facility] [address] [place], [address] T PROT 7.6 g/dL Normal 5.9-8.4 [facility] Comment on above: Performed By: #### L 300.3900, L100.0100, L501.2450, L500.4050 ####[facility] [address] [place], [address] Urea nitrogen [Mass/Vol] 10 mg/dL Normal 4-19 [facility] Comment on above: Performed By: #### L 300.3900, L100.0100, L501.2450, L500.4050 ####[facility] [address] [place], [address] Emergency Department Summary on 01-22-2025 Emergency Department Summary Normal [facility] Eosinophil percentageOrdered By: Juan Vines on 01-22-2025 Eosinophils/100 WBC (Bld) 0.1 % 0-5 [facility] Erythrocyte distribution wid th ratioOrdered By: Juan Vines on 01-22-2025 Erythrocyte distribution width (RBC) [Ratio] 14.6 % 11.6-14.6 [facility] Erythrocyte distribution wid th standard deviationOrdered By: Juan Vines on 01-22-2025 Erythrocyte distribution width (RBC) [Ratio] 46.0 fl High 35.1-43.9 [facility] Glomerular filtration rate ( GFR) estimation/1.73 sq m using serum, plasma, or whole bOrdered By: Juan Vines on 01-22-2025 GFR/1.73 sq M.predicted among non-blacks MDRD (S/P/Bld) [Vol rate/Area] 77 mL/min/{1.73_m2} >60 [facility] Comment on above: mL/min/1.73m2 CKD-EP I Creatinine Equation (2020) H AND P Exam - Hospitaliston 01-22-2025 H&P Exam - Hospitalist Normal [facility] Hematocrit Auto (Bld) [Volum e fraction]Ordered By: Juan Vines on 01-22-2025 Hematocrit (Bld) [Volume fraction] 42.8 % 37-47 [facility] Hemoglobin measurementOrdere d By: Juan Vines on 01-22-2025 Hemoglobin (Bld) [Mass/Vol] 14.2 g/dL 12.0-15.0 [facility] Immature granulocytes/100 WB C Auto (Bld)Ordered By: Juan Vines on 01-22-2025 Immature granulocytes/100 WBC (Bld) 0.500 % 0.0-0.9 [facility] Comment on above: IG% - Immature Granu locytes (promyelocytes, myelocytes and metamyelocytes) > 1% indicates that a LEFT SHIFT is Present. Influenza virus A and B and SARS-CoV-2 (COVID-19) and Respiratory syncytial virus RNAOrdered By: Juan Vines on 01-22-2025 SARS-CoV-2 (COVID-19) RNA KASHIF+probe Ql (Unsp spec) [facility] International normalized rat io (INR) calculationOrdered By: Juan Vines on 01-22-2025 INR Coag (Bld) [Relative time] 2.1 {INR} [facility] Ketones Test strip Ql (U)Ord ered By: Juan Vines on 01-22-2025 Ketones Ql (U) Negative Negative [facility] L509.7001on 01-22-2025 Procalcitonin 0.12 ng/mL High <=0.10 [facility] Comment on above: Result Comment: Inte rpretation:<0.10-0.25 ng/mL: Antibiotic therapy discouraged. Bacterialinfection unlikely.0.25-0.50 ng/mL: Antibiotic therapy encouraged. Bacterialinfection possible.>0.50 ng/mL: Antibiotic therapy strongly encouraged.Suggestive of presence of bacterial infection.PCT should always be interpreted in the clinical context ofthe patient. Therefore, clinicians should use the PCTresults in conjunction with other laboratory findings andclinical signs of the patient. Performed By: #### L 509.7001, L503.7505 ####[facility] [address] [place], [place], [id number] Laboratory - Chemistry and C hemistry - challengeOrdered By: Juan Vines on 01-22-2025 AST [Catalytic activity/Vol] 20 U/L <32 [facility] Lipaseon 01-22-2025 Lipase [Catalytic activity/Vol] 23 U/L Normal 13-75 [facility] Comment on above: Result Comment: Ronna box note:LIPASE revised reference range effective 22.New Lipase methodology. Expected to produce lower valuesthan the previous assay method.NEW Reference Range: 13 - 75 U/L Performed By: #### L 300.3900, L100.0100, L501.2450, L500.4050 ####[facility] [address] [place], [address] Lipase measurementOrdered By : Juan Vines on 01-22-2025 Lipase [Catalytic activity/Vol] 23 U/L 13-75 [facility] Comment on above: Please note:LIPASE r evised reference range effective 22. New Lipase methodology. Expected to produce lower values than the previous assay method. NEW Reference Range: 13 - 75 U/L M100.678on 01-22-2025 M100.678 Pending SARS-CoV-2 (COVID 19) Negative INFLUENZA A Negative INFLUENZA B Negative RSV PCR Negative Normal [facility] Comment on above: Performed By: #### M 100.678 ####[facility] [address] [place], [place], [id number] MCV (mean corpuscular volume ) determinationOrdered By: Juan Vines on 01-22-2025 MCV (RBC) [Entitic vol] 86.3 fL 81-99 [facility] Mean corpuscular hemoglobin (MCH) determinationOrdered By: Juan Vines on 01-22-2025 MCH (RBC) [Entitic mass] 28.6 pg 27.0-32.0 [facility] Mean corpuscular hemoglobin concentration (MCHC) determinationOrdered By: Juan Vines on 01-22-2025 MCHC (RBC) [Mass/Vol] 33.2 g/dL 32-36 [facility] Mean platelet volume determi nationOrdered By: Juan Vines on 01-22-2025 Platelet mean volume (Bld) [Entitic vol] 9.4 fL 6.2-12.0 [facility] Microscopic analysis of urin e for red blood cells (RBC)Ordered By: Juan Vines on 01-22-2025 Microscopic analysis of urine for red blood cells (RBC) 0-5 SEEN /hpf 0-5 [facility] Monocyte percentageOrdered B y: Juan Vines on 01-22-2025 Monocytes/100 WBC (Bld) 9.4 % 0-10 [facility] Mucus LM Ql (Urine sed)Order ed By: Juan Vines on 01-22-2025 Mucus Ql (Urine sed) 0 SEEN /hpf [facility] Natriuretic peptide.B prohor frida N-Terminal [Mass/volume] in Serum or PlasmaOrdered By: Philip Kamara on 01-22-2025 Natriuretic peptide.B prohormone N-Terminal [Mass/Vol] 4301 pg/mL High <1800 [facility] Comment on above: Heart Failure Unlike ly: < 300 pg/mLHeart Failure Likely< 50 Years: > 450 pg/mL50-75 Years: > 900 pg/mL>75 Years: > 1800 pg/mL Neutrophil percentageOrdered By: Juan Vines on 01-22-2025 Neutrophils/100 WBC (Bld) 84.4 % High 47-70 [facility] Nitrite Test strip Ql (U)Ord ered By: Juan Vines on 01-22-2025 Nitrite Ql (U) Negative Negative [facility] Nucleated red blood cell per centageOrdered By: Juan Vines on 01-22-2025 Nucleated RBC/100 WBC (Bld) [Ratio] 0 % 0-5 [facility] Platelet countOrdered By: Jacky Vines on 01-22-2025 Platelets (Bld) [#/Vol] 289 10*3/uL 150-450 [facility] Potassium measurement (mass/ volume)Ordered By: Juan Vines on 01-22-2025 Potassium (Unsp spec) [Mass/Vol] 4.0 mmol/L 3.3-5.1 [facility] Pro- Brain NATRIURETIC PEPTI Jaya 01-22-2025 Natriuretic peptide B (Bld) [Mass/Vol] 4301 pg/mL High <=1800 [facility] Comment on above: Result Comment: Hear t Failure Unlikely: < 300 pg/mLHeart Failure Likely< 50 Years: > 450 pg/mL50-75 Years: > 900 pg/mL>75 Years: > 1800 pg/mL Performed By: #### L 509.7001, L503.7505 ####[facility] [address] [place], [address] Procalcitonin [Mass/volume] in Serum or Plasma by ImmunoassayOrdered By: Philip Kamara on 01-22-2025 Procalcitonin IA [Mass/Vol] 0.12 ng/mL High <0.11 [facility] Comment on above: Interpretation:<0.10 -0.25 ng/mL: Antibiotic therapy discouraged. Bacterial infection unlikely.0.25-0.50 ng/mL: Antibiotic therapy encouraged. Bacterial infection possible.>0.50 ng/mL: Antibiotic therapy strongly encouraged. Suggestive of presence of bacterial infection.PCT should always be interpreted in the clinical context of the patient. Therefore, clinicians should use the PCT results in conjunction with other laboratory findings and clinical signs of the patient. Protein Test strip Ql (U)Ord ered By: Juan Vines on 01-22-2025 Protein Ql (U) Negative Negative [facility] Prothrombin Time w/INRon INR Coag (PPP) [Relative time] 2.1 {INR} Normal [facility] Comment on above: Performed By: #### L 300.3900, L100.0100, L501.2450, L500.4050 ####[facility] [address] [place], [address] PT Coag (PPP) [Time] 24.3 s High 11.7-14.9 [facility] Comment on above: Performed By: #### L 300.3900, L100.0100, L501.2450, L500.4050 ####[facility] [address] [place], [address] Prothrombin timeOrdered By: Juan Vines on 01-22-2025 PT Coag (PPP) [Time] 24.3 s High 11.7-14.9 [facility] RBC Auto (Bld) [#/Vol]Ordere d By: Juan Vines on 01-22-2025 RBC (Bld) [#/Vol] 4.96 10*6/uL 4.2-5.4 [facility] Serum creatinine measurement (mass/volume)Ordered By: Juan Vines on 01-22-2025 Creatinine [Mass/Vol] 0.79 mg/dL 0.70-1.20 [facility] Serum globulin measurementOr dered By: Juan Vines on 01-22-2025 Globulin (S) [Mass/Vol] 3.7 g/dL 2.2-4.2 [facility] Serum glucose measurement (m ass/volume)Ordered By: Juan Vines on 01-22-2025 Glucose [Mass/Vol] 116 mg/dL High 70-99 [facility] Serum or plasma alanine mo otransferase (ALT) measurementOrdered By: Juan Vinse on 01-22-2025 ALT [Catalytic activity/Vol] 11 U/L <35 [facility] Serum or plasma albumin mahnaz urement (mass/volume)Ordered By: Juan Vines on 01-22-2025 Albumin [Mass/Vol] 3.9 g/dL 3.4-4.8 [facility] Serum or plasma albumin/glob ulin mass ratioOrdered By: Juan Vines on 01-22-2025 Albumin/Globulin [Mass ratio] 1.0 {ratio} 0.9-2.4 [facility] Serum or plasma alkaline jey sphatase measurementOrdered By: Juan Vines on 01-22-2025 ALP [Catalytic activity/Vol] 109 U/L High 35-104 [facility] Serum or plasma calcium mahnaz urement (mass/volume)Ordered By: Juan Vines on 01-22-2025 Calcium [Mass/Vol] 8.6 mg/dL 7.6-11.0 [facility] Serum or plasma urea nitroge n measurement (mass/volume)Ordered By: Juan Vines on 01-22-2025 Urea nitrogen [Mass/Vol] 10 mg/dL 4-19 [facility] Sodium levelOrdered By: Juan Vines on 01-22-2025 Sodium [Moles/Vol] 130 mmol/L Low 133-145 [facility] Squamous epithelial cells de tection in urine sediment by light microscopyOrdered By: Juan Vines on 01-22-2025 Epithelial cells.squamous LM Ql (Urine sed) 0-5 SEEN /hpf 5- [facility] Total proteinOrdered By: Chad Vines on 01-22-2025 Protein [Mass/Vol] 7.6 g/dL 5.9-8.4 [facility] Urinalysis, Completeon 01-22 BACTERIA RARE Normal None Seen [facility] Comment on above: Order Comment: CLEAN CATCH Performed By: #### L 400.0001 ####[facility] [address] [place], [address] EPI,SQUAMOUS 0-5 SEEN Normal 5-10 [facility] Comment on above: Order Comment: CLEAN CATCH Performed By: #### L 400.0001 ####[facility] [address] [place], [address] RBC 0-5 SEEN Normal 0-5 [facility] Comment on above: Order Comment: CLEAN CATCH Performed By: #### L 400.0001 ####[facility] [address] [place], [address] WBC 0-5 SEEN Normal 0-5 [facility] Comment on above: Order Comment: CLEAN CATCH Performed By: #### L 400.0001 ####[facility] [address] [place], [address] Mucus Ql (Urine sed) 0 SEEN Normal [facility] Comment on above: Order Comment: CLEAN CATCH Performed By: #### L 400.0001 ####[facility] [address] [place], [address] Urine clarityOrdered By: Chad Vines on 01-22-2025 Clarity (U) Clear Clear [facility] Urine color determinationOrd ered By: Juan Vines on 01-22-2025 Color (U) Straw Yellow [facility] Urine glucose detectionOrder ed By: Juan Vines on 01-22-2025 Glucose Ql (U) Normal mg/dl Normal [facility] Urine leukocyte esterase det ection by dipstickOrdered By: Juan Vines on 01-22-2025 Leukocyte esterase Test strip Ql (U) Negative Negative [facility] Urine pHOrdered By: Juan Munoz ghefra on 01-22-2025 pH (U) 6.5 [pH] 5.0 - 8.0 [facility] Urine sediment bacteria coun t by microscopy (number/high power field)Ordered By: Juan Vines on 01-22-2025 Bacteria LM.HPF (Urine sed) [#/Area] RARE /hpf None Seen [facility] Urine specific gravity measu rementOrdered By: Juan Vines on 01-22-2025 Specific gravity (U) [Rel density] 1.010 1.002-1.030 [facility] Urine urobilinogen measureme ntOrdered By: Juan Vines on 01-22-2025 Urobilinogen Ql (U) Normal mg/dl Normal [facility] White blood cell (WBC) count Ordered By: Juan Vines on 01-22-2025 WBC (Bld) [#/Vol] 13.5 10*3/uL High 4.4-11.0 [facility] White blood cell countOrdere d By: Juan Vines on 01-22-2025 White blood cell count 0-5 SEEN /hpf 0-5 [facility] INR (POC)on 01-16-2025 INR Coag (PPP) [Relative time] 2.2 {INR} High 0.8 - 1.2 [facility] Internal Quality Check Acceptable [facility] Interpretation and review of laboratory results Abnormal [facility] Location:[facility], [address] [place] [address], [place], [address] [facility] POINT OF CARE [facility] Abdomen/Pelvis W IV Cont ONL Yon 01-02-2025 Abdomen/Pelvis W IV Cont ONLY Normal [facility] Absolute lymphocyte countOrd ered By: Pablo Watson on 01-02-2025 Lymphocytes Auto (Unsp spec) [#/Vol] 0.83 10*3/uL 0.83-4.51 [facility] Absolute neutrophil countOrd ered By: Waskish Walter on 01-02-2025 Neutrophils (Bld) [#/Vol] 6.2 10*3/uL 2.0-7.7 [facility] Anion gap in Serum or Plasma Ordered By: [facility] on 01-02-2025 Anion gap [Moles/Vol] 11 mmol/L 5-15 [facility] Automated lymphocyte count a s percentage of total leukocytesOrdered By: Pabloshukri Watson on 01-02-2025 Lymphocytes/100 WBC Auto (Unsp spec) 10.2 % Low 19-41 [facility] BUN/creatinine ratioOrdered By: Waskish Walter on 01-02-2025 Urea nitrogen/Creatinine [Mass ratio] 15.7 mg/mg 10-20 [facility] Basophil percentageOrdered B y: Pablo Watson on 01-02-2025 Basophils/100 WBC (Bld) 0.5 % 0-1 [facility] Bilirubin Test strip Ql (U)O rdered By: Pabloshukri Watson on 01-02-2025 Bilirubin Ql (U) Negative Negative [facility] Bilirubin, totalOrdered By: Pabloshukri Watson on 01-02-2025 Bilirubin [Mass/Vol] 0.38 mg/dL 0.00-1.30 [facility] CBC W/Diff, Automatedon 12-05 Absolute Lymph 0.83 X10 3/uL Normal 0.83-4.51 [facility] Comment on above: Performed By: #### L 500.4050, L100.0100, L501.2450 ####[facility] [address] [place], [place], [id number] Absolute Neut 6.2 X10 3/uL Normal 2.0-7.7 [facility] Comment on above: Performed By: #### L 500.4050, L100.0100, L501.2450 ####[facility] [address] [place], [address] Basophils/100 WBC (Bld) 0.5 % Normal 0-1 [facility] Comment on above: Performed By: #### L 500.4050, L100.0100, L501.2450 ####[facility] [address] [place], [address] Eosinophils/100 WBC (Bld) 0.5 % Normal 0-5 [facility] Comment on above: Performed By: #### L 500.4050, L100.0100, L501.2450 ####[facility] [address] [place], [address] Erythrocyte distribution width (RBC) [Ratio] 14.2 % Normal 11.6-14.6 [facility] Comment on above: Performed By: #### L 500.4050, L100.0100, L501.2450 ####[facility] [address] [place], [address] Hematocrit (Bld) [Volume fraction] 40.8 % Normal 37-47 [facility] Comment on above: Performed By: #### L 500.4050, L100.0100, L501.2450 ####[facility] [address] [place], [address] Hemoglobin (Bld) [Mass/Vol] 13.5 g/dL Normal 12.0-15.0 [facility] Comment on above: Performed By: #### L 500.4050, L100.0100, L501.2450 ####[facility] [address] [place], [address] IG% 0.200 Normal 0.0-0.9 [facility] Comment on above: Result Comment: IG% - Immature Granulocytes (promyelocytes, myelocytes andmetamyelocytes) > 1% indicates that a LEFT SHIFT is Present. Performed By: #### L 500.4050, L100.0100, L501.2450 ####[facility] [address] [place], [address] Lymphocytes/100 WBC (Bld) 10.2 % Low 19-41 [facility] Comment on above: Performed By: #### L 500.4050, L100.0100, L501.2450 ####[facility] [address] [place], [address] MCH (RBC) [Entitic mass] 28.9 pg Normal 27.0-32.0 [facility] Comment on above: Performed By: #### L 500.4050, L100.0100, L501.2450 ####[facility] [address] [place], [address] MCHC (RBC) [Mass/Vol] 33.1 g/dL Normal 32-36 [facility] Comment on above: Performed By: #### L 500.4050, L100.0100, L501.2450 ####[facility] [address] [place], [address] MCV (RBC) [Entitic vol] 87.4 fL Normal 81-99 [facility] Comment on above: Performed By: #### L 500.4050, L100.0100, L501.2450 ####[facility] [address] [place], [address] Monocytes/100 WBC (Bld) 12.7 % High 0-10 [facility] Comment on above: Performed By: #### L 500.4050, L100.0100, L501.2450 ####[facility] [address] [place], [address] Neutrophils/100 WBC (Bld) 75.9 % High 47-70 [facility] Comment on above: Performed By: #### L 500.4050, L100.0100, L501.2450 ####[facility] [address] [place], [address] Nucleated RBC (Bld) [#/Vol] 0 10*3/uL Normal 0-5 [facility] Comment on above: Performed By: #### L 500.4050, L100.0100, L501.2450 ####[facility] [address] [place], [address] Platelet mean volume (Bld) [Entitic vol] 9.1 fL Normal 6.2-12.0 [facility] Comment on above: Performed By: #### L 500.4050, L100.0100, L501.2450 ####[facility] [address] [place], [address] Platelets (Bld) [#/Vol] 267 10*3/uL Normal 150-450 [facility] Comment on above: Performed By: #### L 500.4050, L100.0100, L501.2450 ####[facility] [address] [place], [address] RBC (Bld) [#/Vol] 4.67 10*6/uL Normal 4.2-5.4 [facility] Comment on above: Performed By: #### L 500.4050, L100.0100, L501.2450 ####[facility] [address] [place], [address] RDW SD 45.2 fl High 35.1-43.9 [facility] Comment on above: Performed By: #### L 500.4050, L100.0100, L501.2450 ####[facility] [address] [place], [address] WBC (Bld) [#/Vol] 8.1 10*3/uL Normal 4.4-11.0 [facility] Comment on above: Performed By: #### L 500.4050, L100.0100, L501.2450 ####[facility] [address] [place], [address] Carbon dioxide, total [Moles /volume] in Central venous bloodOrdered By: Pablo Watson on 01-02-2025 CO2 [Moles/Vol] 23.0 mmol/L 21.0-32.0 [facility] Chloride assayOrdered By: Favian Watson on 01-02-2025 Chloride [Moles/Vol] 103 mmol/L 98-108 [facility] Comprehensive Metabolic Prof ilon 01-02-2025 Albumin [Mass/Vol] 3.8 g/dL Normal 3.4-4.8 [facility] Comment on above: Performed By: #### L 500.4050, L100.0100, L501.2450 ####[facility] [address] [place], [address] Albumin/Globulin [Mass ratio] 1.2 {ratio} Normal 0.9-2.4 [facility] Comment on above: Performed By: #### L 500.4050, L100.0100, L501.2450 ####[facility] [address] [place], [address] ALK PHOS 114 U/L High 35-104 [facility] Comment on above: Performed By: #### L 500.4050, L100.0100, L501.2450 ####[facility] [address] [place], [address] ALT [Catalytic activity/Vol] 12 U/L Normal <=34 [facility] Comment on above: Performed By: #### L 500.4050, L100.0100, L501.2450 ####[facility] [address] [place], [address] AST [Catalytic activity/Vol] 19 U/L Normal <=31 [facility] Comment on above: Performed By: #### L 500.4050, L100.0100, L501.2450 ####[facility] [address] [place], [address] Bilirubin [Mass/Vol] 0.38 mg/dL Normal 0.00-1.30 [facility] Comment on above: Performed By: #### L 500.4050, L100.0100, L501.2450 ####[facility] [address] [place], [address] BUN/CRE 15.7 RATIO Normal 10-20 [facility] Comment on above: Performed By: #### L 500.4050, L100.0100, L501.2450 ####[facility] [address] [place], [address] Calcium [Mass/Vol] 8.8 mg/dL Normal 7.6-11.0 [facility] Comment on above: Performed By: #### L 500.4050, L100.0100, L501.2450 ####[facility] [address] [place], [address] Chloride [Moles/Vol] 103 mmol/L Normal 98-108 [facility] Comment on above: Performed By: #### L 500.4050, L100.0100, L501.2450 ####[facility] [address] [place], [address] CO2 [Moles/Vol] 23.0 mmol/L Normal 21.0-32.0 [facility] Comment on above: Performed By: #### L 500.4050, L100.0100, L501.2450 ####[facility] [address] [place], [address] Creatinine [Mass/Vol] 0.88 mg/dL Normal 0.70-1.20 [facility] Comment on above: Performed By: #### L 500.4050, L100.0100, L501.2450 ####[facility] [address] [place], [address] ECRCL 39.12 ml/min Low 50-250 [facility] Comment on above: Performed By: #### L 500.4050, L100.0100, L501.2450 ####[facility] [address] [place], [address] GAP 11 Normal 5-15 [facility] Comment on above: Performed By: #### L 500.4050, L100.0100, L501.2450 ####[facility] [address] [place], [address] GFR/1.73 sq M.predicted among non-blacks MDRD (S/P/Bld) [Vol rate/Area] 67 mL/min/{1.73_m2} Normal >60 [facility] Comment on above: Result Comment: mL/m in/1.73m2 CKD-EPI Creatinine Equation (2020) Performed By: #### L 500.4050, L100.0100, L501.2450 ####[facility] [address] [place], [address] Globulin (S) [Mass/Vol] 3.1 g/dL Normal 2.2-4.2 [facility] Comment on above: Performed By: #### L 500.4050, L100.0100, L501.2450 ####[facility] [address] [place], [address] Glucose [Mass/Vol] 108 mg/dL High 70-99 [facility] Comment on above: Performed By: #### L 500.4050, L100.0100, L501.2450 ####[facility] [address] [place], [address] Potassium [Moles/Vol] 4.0 mmol/L Normal 3.3-5.1 [facility] Comment on above: Performed By: #### L 500.4050, L100.0100, L501.2450 ####[facility] [address] [place], [address] Sodium [Moles/Vol] 137 mmol/L Normal 133-145 [facility] Comment on above: Performed By: #### L 500.4050, L100.0100, L501.2450 ####[facility] [address] [place], [address] T PROT 6.9 g/dL Normal 5.9-8.4 [facility] Comment on above: Performed By: #### L 500.4050, L100.0100, L501.2450 ####[facility] [address] [place], [address] Urea nitrogen [Mass/Vol] 14 mg/dL Normal 4-19 [facility] Comment on above: Performed By: #### L 500.4050, L100.0100, L501.2450 ####[facility] [address] [place], [address] Emergency Department Summary on 01-02-2025 Emergency Department Summary Normal [facility] Eosinophil percentageOrdered By: Pablo Watson on 01-02-2025 Eosinophils/100 WBC (Bld) 0.5 % 0-5 [facility] Erythrocyte distribution wid th ratioOrdered By: Pablo Watson on 01-02-2025 Erythrocyte distribution width (RBC) [Ratio] 14.2 % 11.6-14.6 [facility] Erythrocyte distribution wid th standard deviationOrdered By: Pabloshukri Teague on 01-02-2025 Erythrocyte distribution width (RBC) [Ratio] 45.2 fl High 35.1-43.9 [facility] Glomerular filtration rate ( GFR) estimation/1.73 sq m using serum, plasma, or whole bOrdered By: Pablo Watson on 01-02-2025 GFR/1.73 sq M.predicted among non-blacks MDRD (S/P/Bld) [Vol rate/Area] 67 mL/min/{1.73_m2} >60 [facility] Comment on above: mL/min/1.73m2 CKD-EP I Creatinine Equation (2020) Hematocrit Auto (Bld) [Volum e fraction]Ordered By: Pablo Watson on 01-02-2025 Hematocrit (Bld) [Volume fraction] 40.8 % 37-47 [facility] Hemoglobin measurementOrdere d By: Pablo Watson on 01-02-2025 Hemoglobin (Bld) [Mass/Vol] 13.5 g/dL 12.0-15.0 [facility] Immature granulocytes/100 WB C Auto (Bld)Ordered By: Pablo Watson on 01-02-2025 Immature granulocytes/100 WBC (Bld) 0.200 % 0.0-0.9 [facility] Comment on above: IG% - Immature Granu locytes (promyelocytes, myelocytes and metamyelocytes) > 1% indicates that a LEFT SHIFT is Present. Ketones Test strip Ql (U)Ord ered By: Pablo Watson on 01-02-2025 Ketones Ql (U) Negative Negative [facility] Laboratory - Chemistry and C hemistry - challengeOrdered By: Pablo Watson on 01-02-2025 AST [Catalytic activity/Vol] 19 U/L <32 [facility] Lipaseon 01-02-2025 Lipase [Catalytic activity/Vol] 34 U/L Normal 13-75 [facility] Comment on above: Result Comment: Ronna box note:LIPASE revised reference range effective 22.New Lipase methodology. Expected to produce lower valuesthan the previous assay method.NEW Reference Range: 13 - 75 U/L Performed By: #### L 500.4050, L100.0100, L501.2450 ####[facility] [address] [place], [address] Lipase measurementOrdered By : Pablo Watson on 01-02-2025 Lipase [Catalytic activity/Vol] 34 U/L 13-75 [facility] Comment on above: Please note:LIPASE r evised reference range effective 22. New Lipase methodology. Expected to produce lower values than the previous assay method. NEW Reference Range: 13 - 75 U/L MCV (mean corpuscular volume ) determinationOrdered By: Pablo Watson on 01-02-2025 MCV (RBC) [Entitic vol] 87.4 fL 81-99 [facility] Mean corpuscular hemoglobin (MCH) determinationOrdered By: Pablo Watson on 01-02-2025 MCH (RBC) [Entitic mass] 28.9 pg 27.0-32.0 [facility] Mean corpuscular hemoglobin concentration (MCHC) determinationOrdered By: Pablo Watson on 01-02-2025 MCHC (RBC) [Mass/Vol] 33.1 g/dL 32-36 [facility] Mean platelet volume determi nationOrdered By: Pablo Watson on 01-02-2025 Platelet mean volume (Bld) [Entitic vol] 9.1 fL 6.2-12.0 [facility] Microscopic analysis of urin e for red blood cells (RBC)Ordered By: Pablo Watson on 01-02-2025 Microscopic analysis of urine for red blood cells (RBC) 0 SEEN /hpf 0-5 [facility] Monocyte percentageOrdered B y: Pablo Watson on 01-02-2025 Monocytes/100 WBC (Bld) 12.7 % High 0-10 [facility] Mucus LM Ql (Urine sed)Order ed By: Pablo Watson on 01-02-2025 Mucus Ql (Urine sed) 0 SEEN /hpf [facility] Neutrophil percentageOrdered By: Pablo Walter on 01-02-2025 Neutrophils/100 WBC (Bld) 75.9 % High 47-70 [facility] Nitrite Test strip Ql (U)Ord ered By: Pablo Watson on 01-02-2025 Nitrite Ql (U) Negative Negative [facility] Nucleated red blood cell per centageOrdered By: Pablo Watson on 01-02-2025 Nucleated RBC/100 WBC (Bld) [Ratio] 0 % 0-5 [facility] Platelet countOrdered By: Favian Watson on 01-02-2025 Platelets (Bld) [#/Vol] 267 10*3/uL 150-450 [facility] Potassium measurement (mass/ volume)Ordered By: Pablo Watson on 01-02-2025 Potassium (Unsp spec) [Mass/Vol] 4.0 mmol/L 3.3-5.1 [facility] Protein Test strip Ql (U)Ord ered By: Pablo aWtson on 01-02-2025 Protein Ql (U) 30 mg/dl High Negative [facility] RBC Auto (Bld) [#/Vol]Ordere d By: Pablo Watson on 01-02-2025 RBC (Bld) [#/Vol] 4.67 10*6/uL 4.2-5.4 [facility] Serum creatinine measurement (mass/volume)Ordered By: Pablo Watson on 01-02-2025 Creatinine [Mass/Vol] 0.88 mg/dL 0.70-1.20 [facility] Serum globulin measurementOr dered By: Pablo Watson on 01-02-2025 Globulin (S) [Mass/Vol] 3.1 g/dL 2.2-4.2 [facility] Serum glucose measurement (m ass/volume)Ordered By: Pablo Watson on 01-02-2025 Glucose [Mass/Vol] 108 mg/dL High 70-99 [facility] Serum or plasma alanine mo otransferase (ALT) measurementOrdered By: Pablo Watson on 01-02-2025 ALT [Catalytic activity/Vol] 12 U/L <35 [facility] Serum or plasma albumin mahnaz urement (mass/volume)Ordered By: Pablo Teague on 01-02-2025 Albumin [Mass/Vol] 3.8 g/dL 3.4-4.8 [facility] Serum or plasma albumin/glob ulin mass ratioOrdered By: Pablo Watson on 01-02-2025 Albumin/Globulin [Mass ratio] 1.2 {ratio} 0.9-2.4 [facility] Serum or plasma alkaline jey sphatase measurementOrdered By: Pablo Watson on 01-02-2025 ALP [Catalytic activity/Vol] 114 U/L High 35-104 [facility] Serum or plasma calcium mahnaz urement (mass/volume)Ordered By: Pablo Teague on 01-02-2025 Calcium [Mass/Vol] 8.8 mg/dL 7.6-11.0 [facility] Serum or plasma urea nitroge n measurement (mass/volume)Ordered By: Pablo Watson on 01-02-2025 Urea nitrogen [Mass/Vol] 14 mg/dL 4-19 [facility] Sodium levelOrdered By: Ezio Watson on 01-02-2025 Sodium [Moles/Vol] 137 mmol/L 133-145 [facility] Squamous epithelial cells de tection in urine sediment by light microscopyOrdered By: Pablo Watson on 01-02-2025 Epithelial cells.squamous LM Ql (Urine sed) 0 SEEN /hpf 5-10 [facility] Total proteinOrdered By: Paul Watson on 01-02-2025 Protein [Mass/Vol] 6.9 g/dL 5.9-8.4 [facility] Urinalysis, Completeon 01-02 BACTERIA 0 SEEN Normal None Seen [facility] Comment on above: Order Comment: JOSE WOODARDOR TO SPECIFY Performed By: #### L 400.0001 ####[facility] [address] [place], [address] EPI,SQUAMOUS 0 SEEN Normal 5-10 [facility] Comment on above: Order Comment: JOSE CTOR TO SPECIFY Performed By: #### L 400.0001 ####[facility] [address] [place], [address] Mucus Ql (Urine sed) 0 SEEN Normal [facility] Comment on above: Order Comment: COLLE CTOR TO SPECIFY Performed By: #### L 400.0001 ####[facility] [address] [place], [address] RBC 0 SEEN Normal 0-5 [facility] Comment on above: Order Comment: JOSE CTOR TO SPECIFY Performed By: #### L 400.0001 ####[facility] [address] [place], [address] WBC 0 SEEN Normal 0-5 [facility] Comment on above: Order Comment: JOSE CTOR TO SPECIFY Performed By: #### L 400.0001 ####[facility] [address] [place], [place], [address] Urine clarityOrdered By: Paul Watson on 01-02-2025 Clarity (U) Clear Clear [facility] Urine color determinationOrd ered By: Pablo Watson on 01-02-2025 Color (U) Yellow Yellow [facility] Urine glucose detectionOrder ed By: Pablo Watson on 01-02-2025 Glucose Ql (U) Normal mg/dl Normal [facility] Urine leukocyte esterase det ection by dipstickOrdered By: Pablo Watson on 01-02-2025 Leukocyte esterase Test strip Ql (U) Negative Negative [facility] Urine pHOrdered By: Pablo Briscoe on 01-02-2025 pH (U) 6.0 [pH] 5.0 - 8.0 [facility] Urine sediment bacteria coun t by microscopy (number/high power field)Ordered By: Pablo Watson on 01-02-2025 Bacteria LM.HPF (Urine sed) [#/Area] 0 /[HPF] None Seen [facility] Urine specific gravity measu rementOrdered By: Pablo Watson on 01-02-2025 Specific gravity (U) [Rel density] 1.010 1.002-1.030 [facility] Urine urobilinogen measureme ntOrdered By: Pablo Watson on 01-02-2025 Urobilinogen Ql (U) Normal mg/dl Normal [facility] White blood cell (WBC) count Ordered By: Pablo Watson on 01-02-2025 WBC (Bld) [#/Vol] 8.1 10*3/uL 4.4-11.0 [facility] White blood cell countOrdere d By: Pablo Watson on 01-02-2025 White blood cell count 0 SEEN /hpf 0-5 [facility] Absolute lymphocyte countOrd ered By: Hima Tijerina on 12-20-2024 Lymphocytes Auto (Unsp spec) [#/Vol] 1.42 10*3/uL 0.83-4.51 [facility] Absolute neutrophil countOrd ered By: Hima Tijerina on 12-20-2024 Neutrophils (Bld) [#/Vol] 4.5 10*3/uL 2.0-7.7 [facility] Anion gap in Serum or Plasma Ordered By: Hima Tijerina on 12-20-2024 Anion gap [Moles/Vol] 10 mmol/L 5-15 [facility] Automated lymphocyte count a s percentage of total leukocytesOrdered By: Hima Tijerina on 12-20-2024 Lymphocytes/100 WBC Auto (Unsp spec) 19.8 % 19-41 [facility] BUN/creatinine ratioOrdered By: Hima Tijerina on 12-20-2024 Urea nitrogen/Creatinine [Mass ratio] 16.8 mg/mg 10-20 [facility] Basophil percentageOrdered B y: Hima Tijerina on 12-20-2024 Basophils/100 WBC (Bld) 1.0 % 0-1 [facility] Bilirubin, totalOrdered By: Hima Tijerina on 12-20-2024 Bilirubin [Mass/Vol] 0.58 mg/dL 0.00-1.30 [facility] CBC W/Diff, Automatedon 12-03 Absolute Lymph 1.42 X10 3/uL Normal 0.83-4.51 [facility] Comment on above: Order Comment: HIMA TIJERINA ORDERED A TSH,T4 FREE, CMPDOCTOR SUPPAN ORDERED EVERYTHING ELSE Performed By: #### L 501.9520, L500.4050, L501.9985, L506.0400, L503.0106, L501.5200, L100.0100, L503.6550, L503.6030 ####[facility] [address] [place], [address] Absolute Neut 4.5 X10 3/uL Normal 2.0-7.7 [facility] Comment on above: Order Comment: HIMA TIJERINA ORDERED A TSH,T4 FREE, CMPDOCTOR SUPPAN ORDERED EVERYTHING ELSE Performed By: #### L 501.9520, L500.4050, L501.9985, L506.0400, L503.0106, L501.5200, L100.0100, L503.6550, L503.6030 ####[facility] [address] [place], [address] Basophils/100 WBC (Bld) 1.0 % Normal 0-1 [facility] Comment on above: Order Comment: HIMA TIJERINA ORDERED A TSH,T4 FREE, CMPDOCTOR SUPPAN ORDERED EVERYTHING ELSE Performed By: #### L 501.9520, L500.4050, L501.9985, L506.0400, L503.0106, L501.5200, L100.0100, L503.6550, L503.6030 ####[facility] [address] [place], [address] Eosinophils/100 WBC (Bld) 1.8 % Normal 0-5 [facility] Comment on above: Order Comment: HIMA TIJERINA ORDERED A TSH,T4 FREE, CMPDOCTOR SUPPAN ORDERED EVERYTHING ELSE Performed By: #### L 501.9520, L500.4050, L501.9985, L506.0400, L503.0106, L501.5200, L100.0100, L503.6550, L503.6030 ####[facility] [address] [place], [address] Erythrocyte distribution width (RBC) [Ratio] 14.3 % Normal 11.6-14.6 [facility] Comment on above: Order Comment: HIMA TIJERINA ORDERED A TSH,T4 FREE, CMPDOCTOR SUPPAN ORDERED EVERYTHING ELSE Performed By: #### L 501.9520, L500.4050, L501.9985, L506.0400, L503.0106, L501.5200, L100.0100, L503.6550, L503.6030 ####[facility] [address] [place], [address] Hematocrit (Bld) [Volume fraction] 42.4 % Normal 37-47 [facility] Comment on above: Order Comment: HIMA TIJERINA ORDERED A TSH,T4 FREE, CMPDOCTOR SUPPAN ORDERED EVERYTHING ELSE Performed By: #### L 501.9520, L500.4050, L501.9985, L506.0400, L503.0106, L501.5200, L100.0100, L503.6550, L503.6030 ####[facility] [address] [place], [address] Hemoglobin (Bld) [Mass/Vol] 14.0 g/dL Normal 12.0-15.0 [facility] Comment on above: Order Comment: HIMA TIJERINA ORDERED A TSH,T4 FREE, CMPDOCTOR SUPPAN ORDERED EVERYTHING ELSE Performed By: #### L 501.9520, L500.4050, L501.9985, L506.0400, L503.0106, L501.5200, L100.0100, L503.6550, L503.6030 ####[facility] [address] [place], [place], [address] IG% 0.400 Normal 0.0-0.9 [facility] Comment on above: Order Comment: HIMA TIJERINA ORDERED A TSH,T4 FREE, CMPDOCTOR SUPPAN ORDERED EVERYTHING ELSE Result Comment: IG% - Immature Granulocytes (promyelocytes, myelocytes andmetamyelocytes) > 1% indicates that a LEFT SHIFT is Present. Performed By: #### L 501.9520, L500.4050, L501.9985, L506.0400, L503.0106, L501.5200, L100.0100, L503.6550, L503.6030 ####[facility] [address] [place], [address] Lymphocytes/100 WBC (Bld) 19.8 % Normal 19-41 [facility] Comment on above: Order Comment: HIMA TIJERINA ORDERED A TSH,T4 FREE, CMPDOCTOR SUPPAN ORDERED EVERYTHING ELSE Performed By: #### L 501.9520, L500.4050, L501.9985, L506.0400, L503.0106, L501.5200, L100.0100, L503.6550, L503.6030 ####[facility] [address] [place], [address] MCH (RBC) [Entitic mass] 29.1 pg Normal 27.0-32.0 [facility] Comment on above: Order Comment: HIMA TIJERINA ORDERED A TSH,T4 FREE, CMPDOCTOR SUPPAN ORDERED EVERYTHING ELSE Performed By: #### L 501.9520, L500.4050, L501.9985, L506.0400, L503.0106, L501.5200, L100.0100, L503.6550, L503.6030 ####[facility] [address] [place], [address] MCHC (RBC) [Mass/Vol] 33.0 g/dL Normal 32-36 [facility] Comment on above: Order Comment: HIMA TIJERINA ORDERED A TSH,T4 FREE, CMPDOCTOR SUPPAN ORDERED EVERYTHING ELSE Performed By: #### L 501.9520, L500.4050, L501.9985, L506.0400, L503.0106, L501.5200, L100.0100, L503.6550, L503.6030 ####[facility] [address] [place], [address] MCV (RBC) [Entitic vol] 88.1 fL Normal 81-99 [facility] Comment on above: Order Comment: HIMA TIJERINA ORDERED A TSH,T4 FREE, CMPDOCTOR SUPPAN ORDERED EVERYTHING ELSE Performed By: #### L 501.9520, L500.4050, L501.9985, L506.0400, L503.0106, L501.5200, L100.0100, L503.6550, L503.6030 ####[facility] [address] [place], [address] Monocytes/100 WBC (Bld) 14.2 % High 0-10 [facility] Comment on above: Order Comment: HIMA TIJERINA ORDERED A TSH,T4 FREE, CMPDOCTOR SUPPAN ORDERED EVERYTHING ELSE Performed By: #### L 501.9520, L500.4050, L501.9985, L506.0400, L503.0106, L501.5200, L100.0100, L503.6550, L503.6030 ####[facility] [address] [place], [address] Neutrophils/100 WBC (Bld) 62.8 % Normal 47-70 [facility] Comment on above: Order Comment: HIMA TIJERINA ORDERED A TSH,T4 FREE, CMPDOCTOR SUPPAN ORDERED EVERYTHING ELSE Performed By: #### L 501.9520, L500.4050, L501.9985, L506.0400, L503.0106, L501.5200, L100.0100, L503.6550, L503.6030 ####[facility] [address] [place], [address] Nucleated RBC (Bld) [#/Vol] 0 10*3/uL Normal 0-5 [facility] Comment on above: Order Comment: HIMA TIJERINA ORDERED A TSH,T4 FREE, CMPDOCTOR SUPPAN ORDERED EVERYTHING ELSE Performed By: #### L 501.9520, L500.4050, L501.9985, L506.0400, L503.0106, L501.5200, L100.0100, L503.6550, L503.6030 ####[facility] [address] [place], [address] Platelet mean volume (Bld) [Entitic vol] 8.9 fL Normal 6.2-12.0 [facility] Comment on above: Order Comment: HIMA TIJERINA ORDERED A TSH,T4 FREE, CMPDOCTOR SUPPAN ORDERED EVERYTHING ELSE Performed By: #### L 501.9520, L500.4050, L501.9985, L506.0400, L503.0106, L501.5200, L100.0100, L503.6550, L503.6030 ####[facility] [address] [place], [address] Platelets (Bld) [#/Vol] 289 10*3/uL Normal 150-450 [facility] Comment on above: Order Comment: HIMA TIJERINA ORDERED A TSH,T4 FREE, CMPDOCTOR SUPPAN ORDERED EVERYTHING ELSE Performed By: #### L 501.9520, L500.4050, L501.9985, L506.0400, L503.0106, L501.5200, L100.0100, L503.6550, L503.6030 ####[facility] [address] [place], [address] RBC (Bld) [#/Vol] 4.81 10*6/uL Normal 4.2-5.4 [facility] Comment on above: Order Comment: HIMA TIJERINA ORDERED A TSH,T4 FREE, CMPDOCTOR SUPPAN ORDERED EVERYTHING ELSE Performed By: #### L 501.9520, L500.4050, L501.9985, L506.0400, L503.0106, L501.5200, L100.0100, L503.6550, L503.6030 ####[facility] [address] [place], [address] RDW SD 46.3 fl High 35.1-43.9 [facility] Comment on above: Order Comment: HIMA TIJERINA ORDERED A TSH,T4 FREE, CMPDOCTOR SUPPAN ORDERED EVERYTHING ELSE Performed By: #### L 501.9520, L500.4050, L501.9985, L506.0400, L503.0106, L501.5200, L100.0100, L503.6550, L503.6030 ####[facility] [address] [place], [place], [phone] WBC (Bld) [#/Vol] 7.2 10*3/uL Normal 4.4-11.0 [facility] Comment on above: Order Comment: HIMA TIJERINA ORDERED A TSH,T4 FREE, CMPDOCTOR SUPPAN ORDERED EVERYTHING ELSE Performed By: #### L 501.9520, L500.4050, L501.9985, L506.0400, L503.0106, L501.5200, L100.0100, L503.6550, L503.6030 ####[facility] [address] [place], [place], [phone] CREATININE SERUMon Creatinine Serum - Intl 0.91 [facility] Carbon dioxide, total [Moles /volume] in Central venous bloodOrdered By: Hima Tijerina on 12-20-2024 CO2 [Moles/Vol] 27.6 mmol/L 21.0-32.0 [facility] Chest PA and Lateralon 12-20 Chest PA and Lateral Normal [facility] Chloride assayOrdered By: Antony Tijerina on 12-20-2024 Chloride [Moles/Vol] 99 mmol/L 98-108 [facility] Comprehensive Metabolic Prof ilon 12-20-2024 Albumin [Mass/Vol] 4.2 g/dL Normal 3.4-4.8 [facility] Comment on above: Order Comment: HIMA TIJERINA ORDERED A TSH,T4 FREE, CMPDOCTOR SUPPAN ORDERED EVERYTHING ELSE Performed By: #### L 501.9520, L500.4050, L501.9985, L506.0400, L503.0106, L501.5200, L100.0100, L503.6550, L503.6030 ####[facility] [address] [place], [address] Albumin/Globulin [Mass ratio] 1.3 {ratio} Normal 0.9-2.4 [facility] Comment on above: Order Comment: HIMA TIJERINA ORDERED A TSH,T4 FREE, CMPDOCTOR SUPPAN ORDERED EVERYTHING ELSE Performed By: #### L 501.9520, L500.4050, L501.9985, L506.0400, L503.0106, L501.5200, L100.0100, L503.6550, L503.6030 ####[facility] [address] [place], [place], [phone] ALK PHOS 133 U/L High 35-104 [facility] Comment on above: Order Comment: HIMA TIJERINA ORDERED A TSH,T4 FREE, CMPDOCTOR SUPPAN ORDERED EVERYTHING ELSE Performed By: #### L 501.9520, L500.4050, L501.9985, L506.0400, L503.0106, L501.5200, L100.0100, L503.6550, L503.6030 ####[facility] [address] [place], [place], [phone] ALT [Catalytic activity/Vol] 17 U/L Normal <=34 [facility] Comment on above: Order Comment: HIMA TIJERINA ORDERED A TSH,T4 FREE, CMPDOCTOR SUPPAN ORDERED EVERYTHING ELSE Performed By: #### L 501.9520, L500.4050, L501.9985, L506.0400, L503.0106, L501.5200, L100.0100, L503.6550, L503.6030 ####[facility] [address] [place], [place], [phone] AST [Catalytic activity/Vol] 21 U/L Normal <=31 [facility] Comment on above: Order Comment: HIMA TIJERINA ORDERED A TSH,T4 FREE, CMPDOCTOR SUPPAN ORDERED EVERYTHING ELSE Performed By: #### L 501.9520, L500.4050, L501.9985, L506.0400, L503.0106, L501.5200, L100.0100, L503.6550, L503.6030 ####[facility] [address] [place], [address] Bilirubin [Mass/Vol] 0.58 mg/dL Normal 0.00-1.30 [facility] Comment on above: Order Comment: HIMA TIJERINA ORDERED A TSH,T4 FREE, CMPDOCTOR SUPPAN ORDERED EVERYTHING ELSE Performed By: #### L 501.9520, L500.4050, L501.9985, L506.0400, L503.0106, L501.5200, L100.0100, L503.6550, L503.6030 ####[facility] [address] [place], [address] BUN/CRE 16.8 RATIO Normal 10-20 [facility] Comment on above: Order Comment: HIMA TIJERINA ORDERED A TSH,T4 FREE, CMPDOCTOR SUPPAN ORDERED EVERYTHING ELSE Performed By: #### L 501.9520, L500.4050, L501.9985, L506.0400, L503.0106, L501.5200, L100.0100, L503.6550, L503.6030 ####[facility] [address] [place], [address] Calcium [Mass/Vol] 9.2 mg/dL Normal 7.6-11.0 [facility] Comment on above: Order Comment: HIMA TIJERINA ORDERED A TSH,T4 FREE, CMPDOCTOR SUPPAN ORDERED EVERYTHING ELSE Performed By: #### L 501.9520, L500.4050, L501.9985, L506.0400, L503.0106, L501.5200, L100.0100, L503.6550, L503.6030 ####[facility] [address] [place], [address] Chloride [Moles/Vol] 99 mmol/L Normal 98-108 [facility] Comment on above: Order Comment: HIMA TIJERINA ORDERED A TSH,T4 FREE, CMPDOCTOR SUPPAN ORDERED EVERYTHING ELSE Performed By: #### L 501.9520, L500.4050, L501.9985, L506.0400, L503.0106, L501.5200, L100.0100, L503.6550, L503.6030 ####[facility] [address] [place], [address] CO2 [Moles/Vol] 27.6 mmol/L Normal 21.0-32.0 [facility] Comment on above: Order Comment: HIMA TIJERINA ORDERED A TSH,T4 FREE, CMPDOCTOR SUPPAN ORDERED EVERYTHING ELSE Performed By: #### L 501.9520, L500.4050, L501.9985, L506.0400, L503.0106, L501.5200, L100.0100, L503.6550, L503.6030 ####[facility] [address] [place], [address] Creatinine [Mass/Vol] 0.91 mg/dL Normal 0.70-1.20 [facility] Comment on above: Order Comment: HIMA TIJERINA ORDERED A TSH,T4 FREE, CMPDOCTOR SUPPAN ORDERED EVERYTHING ELSE Performed By: #### L 501.9520, L500.4050, L501.9985, L506.0400, L503.0106, L501.5200, L100.0100, L503.6550, L503.6030 ####[facility] [address] [place], [address] GAP 10 Normal 5-15 [facility] Comment on above: Order Comment: HIMA TIJERINA ORDERED A TSH,T4 FREE, CMPDOCTOR SUPPAN ORDERED EVERYTHING ELSE Performed By: #### L 501.9520, L500.4050, L501.9985, L506.0400, L503.0106, L501.5200, L100.0100, L503.6550, L503.6030 ####[facility] [address] [place], [address] GFR/1.73 sq M.predicted among non-blacks MDRD (S/P/Bld) [Vol rate/Area] 64 mL/min/{1.73_m2} Normal >60 [facility] Comment on above: Order Comment: HIMA TIJERINA ORDERED A TSH,T4 FREE, CMPDOCTOR SUPPAN ORDERED EVERYTHING ELSE Result Comment: mL/m in/1.73m2 CKD-EPI Creatinine Equation (2020) Performed By: #### L 501.9520, L500.4050, L501.9985, L506.0400, L503.0106, L501.5200, L100.0100, L503.6550, L503.6030 ####[facility] [address] [place], [address] Globulin (S) [Mass/Vol] 3.3 g/dL Normal 2.2-4.2 [facility] Comment on above: Order Comment: HIMA TIJERINA ORDERED A TSH,T4 FREE, CMPDOCTOR SUPPAN ORDERED EVERYTHING ELSE Performed By: #### L 501.9520, L500.4050, L501.9985, L506.0400, L503.0106, L501.5200, L100.0100, L503.6550, L503.6030 ####[facility] [address] [place], [address] Glucose [Mass/Vol] 112 mg/dL High 70-99 [facility] Comment on above: Order Comment: HIMA TIJERINA ORDERED A TSH,T4 FREE, CMPDOCTOR SUPPAN ORDERED EVERYTHING ELSE Performed By: #### L 501.9520, L500.4050, L501.9985, L506.0400, L503.0106, L501.5200, L100.0100, L503.6550, L503.6030 ####[facility] [address] [place], [address] Potassium [Moles/Vol] 3.7 mmol/L Normal 3.3-5.1 [facility] Comment on above: Order Comment: HIMA TIJERINA ORDERED A TSH,T4 FREE, CMPDOCTOR SUPPAN ORDERED EVERYTHING ELSE Performed By: #### L 501.9520, L500.4050, L501.9985, L506.0400, L503.0106, L501.5200, L100.0100, L503.6550, L503.6030 ####[facility] [address] [place], [address] Sodium [Moles/Vol] 137 mmol/L Normal 133-145 [facility] Comment on above: Order Comment: HIMA TIJERINA ORDERED A TSH,T4 FREE, CMPDOCTOR SUPPAN ORDERED EVERYTHING ELSE Performed By: #### L 501.9520, L500.4050, L501.9985, L506.0400, L503.0106, L501.5200, L100.0100, L503.6550, L503.6030 ####[facility] [address] [place], [address] T PROT 7.5 g/dL Normal 5.9-8.4 [facility] Comment on above: Order Comment: HIMA TIJERINA ORDERED A TSH,T4 FREE, CMPDOCTOR SUPPAN ORDERED EVERYTHING ELSE Performed By: #### L 501.9520, L500.4050, L501.9985, L506.0400, L503.0106, L501.5200, L100.0100, L503.6550, L503.6030 ####[facility] [address] [place], [address] Urea nitrogen [Mass/Vol] 15 mg/dL Normal 4-19 [facility] Comment on above: Order Comment: HIMA TIJERINA ORDERED A TSH,T4 FREE, CMPDOCTOR SUPPAN ORDERED EVERYTHING ELSE Performed By: #### L 501.9520, L500.4050, L501.9985, L506.0400, L503.0106, L501.5200, L100.0100, L503.6550, L503.6030 ####[facility] [address] [place], [place], [phone] Eosinophil percentageOrdered By: Hima Tijerina on 12-20-2024 Eosinophils/100 WBC (Bld) 1.8 % 0-5 [facility] Erythrocyte distribution wid th ratioOrdered By: Hima Tijerina on 12-20-2024 Erythrocyte distribution width (RBC) [Ratio] 14.3 % 11.6-14.6 [facility] Erythrocyte distribution wid th standard deviationOrdered By: Hima Tijerina on 12-20-2024 Erythrocyte distribution width (RBC) [Ratio] 46.3 fl High 35.1-43.9 [facility] Ferritinon 12-20-2024 Ferritin [Mass/Vol] 35 ng/mL Normal 22-378 [facility] Comment on above: Order Comment: HIMA TIJERINA ORDERED A TSH,T4 FREE, CMPDOCTOR SUPPAN ORDERED EVERYTHING ELSE Performed By: #### L 501.9520, L500.4050, L501.9985, L506.0400, L503.0106, L501.5200, L100.0100, L503.6550, L503.6030 ####[facility] [address] [facility] [place], [place], [phone] Glomerular filtration rate ( GFR) estimation/1.73 sq m using serum, plasma, or whole bOrdered By: Hima Tijerina on 12-20-2024 GFR/1.73 sq M.predicted among non-blacks MDRD (S/P/Bld) [Vol rate/Area] 64 mL/min/{1.73_m2} >60 [facility] Comment on above: mL/min/1.73m2 CKD-EP I Creatinine Equation (2020) Hematocrit Auto (Bld) [Volum e fraction]Ordered By: Hima Tijerina on 12-20-2024 Hematocrit (Bld) [Volume fraction] 42.4 % 37-47 [facility] Hemoglobin A1con 12-20-2024 HbA1c (Bld) [Mass fraction] 5.9 % High <=5.6 [facility] Comment on above: Order Comment: HIMA TIJERINA ORDERED A TSH,T4 FREE, CMPDOCTOR SUPPAN ORDERED EVERYTHING ELSE Result Comment: Norm al < 5.7 % Prediabetic 5.7 - 6.4 % Diabetic >or= 6.5 % Please note range changes. Performed By: #### L 501.9520, L500.4050, L501.9985, L506.0400, L503.0106, L501.5200, L100.0100, L503.6550, L503.6030 ####[facility] [address] [place], [address] Hemoglobin A1c percentageOrd ered By: Hima Tijerina on 12-20-2024 HbA1c (Bld) [Mass fraction] 5.9 % High <5.7 [facility] Comment on above: Normal < 5.7 % Predi abetic 5.7 - 6.4 % Diabetic >or= 6.5 % Please note range changes. Hemoglobin measurementOrdere d By: Hima Tijerina on 12-20-2024 Hemoglobin (Bld) [Mass/Vol] 14.0 g/dL 12.0-15.0 [facility] Immature granulocytes/100 WB C Auto (Bld)Ordered By: Hima Tijerina on 12-20-2024 Immature granulocytes/100 WBC (Bld) 0.400 % 0.0-0.9 [facility] Comment on above: IG% - Immature Granu locytes (promyelocytes, myelocytes and metamyelocytes) > 1% indicates that a LEFT SHIFT is Present. Iron measurement (mass/mass) Ordered By: Hima Tijerina on 12-20-2024 Iron (Unsp spec) [Mass/Mass] 58 ug/dL 50-170 [facility] Iron+Iron Binding Capacityon 12-20-2024 Iron [Mass/Vol] 58 ug/dL Normal 50-170 [facility] Comment on above: Order Comment: HIMA TIJERINA ORDERED A TSH,T4 FREE, CMPDOCTOR SUPPAN ORDERED EVERYTHING ELSE Performed By: #### L 501.9520, L500.4050, L501.9985, L506.0400, L503.0106, L501.5200, L100.0100, L503.6550, L503.6030 ####[facility] [address] [place], [place], [phone] IRON SATURATION 15.0 Normal 13-59 [facility] Comment on above: Order Comment: HIMA TIJERINA ORDERED A TSH,T4 FREE, CMPDOCTOR SUPPAN ORDERED EVERYTHING ELSE Performed By: #### L 501.9520, L500.4050, L501.9985, L506.0400, L503.0106, L501.5200, L100.0100, L503.6550, L503.6030 ####[facility] [address] [place], [place], [id number] TIBC 393 ug/dL Normal 250-450 [facility] Comment on above: Order Comment: HIMA TIJERINA ORDERED A TSH,T4 FREE, CMPDOCTOR SUPPAN ORDERED EVERYTHING ELSE Performed By: #### L 501.9520, L500.4050, L501.9985, L506.0400, L503.0106, L501.5200, L100.0100, L503.6550, L503.6030 ####[facility] [address] [place], [place], [phone] UIBC 335 ug/dL Normal 228-428 [facility] Comment on above: Order Comment: HIMA TIJERINA ORDERED A TSH,T4 FREE, CMPDOCTOR SUPPAN ORDERED EVERYTHING ELSE Performed By: #### L 501.9520, L500.4050, L501.9985, L506.0400, L503.0106, L501.5200, L100.0100, L503.6550, L503.6030 ####[facility] [address] [place], [address] Laboratory - Chemistry and C hemistry - challengeOrdered By: Hima Tijerina on 12-20-2024 AST [Catalytic activity/Vol] 21 U/L <32 [facility] MCV (mean corpuscular volume ) determinationOrdered By: Hima Tijerina on 12-20-2024 MCV (RBC) [Entitic vol] 88.1 fL 81-99 [facility] Magnesiumon 12-20-2024 Magnesium [Mass/Vol] 2.2 mg/dL Normal 1.5-2.2 [facility] Comment on above: Order Comment: HIMA TIJERINA ORDERED A TSH,T4 FREE, CMPDOCTOR SUPPAN ORDERED EVERYTHING ELSE Performed By: #### L 501.9520, L500.4050, L501.9985, L506.0400, L503.0106, L501.5200, L100.0100, L503.6550, L503.6030 ####[facility] [address] [place], [address] Magnesium measurement (mass/ volume)Ordered By: Hima Tijerina on 12-20-2024 Magnesium (Unsp spec) [Mass/Vol] 2.2 mg/dL 1.5-2.2 [facility] Mean corpuscular hemoglobin (MCH) determinationOrdered By: Hima Tijerina on 12-20-2024 MCH (RBC) [Entitic mass] 29.1 pg 27.0-32.0 [facility] Mean corpuscular hemoglobin concentration (MCHC) determinationOrdered By: Hima Tijerina on 12-20-2024 MCHC (RBC) [Mass/Vol] 33.0 g/dL 32-36 [facility] Mean platelet volume determi nationOrdered By: Hima Tijerina on 12-20-2024 Platelet mean volume (Bld) [Entitic vol] 8.9 fL 6.2-12.0 [facility] Monocyte percentageOrdered B y: Hima Tijerina on 12-20-2024 Monocytes/100 WBC (Bld) 14.2 % High 0-10 [facility] Neutrophil percentageOrdered By: Hima Tijerina on 12-20-2024 Neutrophils/100 WBC (Bld) 62.8 % 47-70 [facility] No Panel Informationon 12-20 [facility] No Panel InformationOrdered By: Hima Tijerina on 12-20-2024 Unsaturated Iron Binding Capacity 335 ug/dL 228-428 [facility] Nucleated red blood cell per centageOrdered By: Hima Tijerina on 12-20-2024 Nucleated RBC/100 WBC (Bld) [Ratio] 0 % 0-5 [facility] Platelet countOrdered By: Antony Tijerina on 12-20-2024 Platelets (Bld) [#/Vol] 289 10*3/uL 150-450 [facility] Potassium measurement (mass/ volume)Ordered By: Hima Tijerina on 12-20-2024 Potassium (Unsp spec) [Mass/Vol] 3.7 mmol/L 3.3-5.1 [facility] RBC Auto (Bld) [#/Vol]Ordere d By: Hima Tijerina on 12-20-2024 RBC (Bld) [#/Vol] 4.81 10*6/uL 4.2-5.4 [facility] Serum creatinine measurement (mass/volume)Ordered By: Hima Tijerina on 12-20-2024 Creatinine [Mass/Vol] 0.91 mg/dL 0.70-1.20 [facility] Serum globulin measurementOr dered By: Hima Tijerina on 12-20-2024 Globulin (S) [Mass/Vol] 3.3 g/dL 2.2-4.2 [facility] Serum glucose measurement (m ass/volume)Ordered By: Hima Tijerina on 12-20-2024 Glucose [Mass/Vol] 112 mg/dL High 70-99 [facility] Serum or plasma alanine mo otransferase (ALT) measurementOrdered By: Hima Tijerina on 12-20-2024 ALT [Catalytic activity/Vol] 17 U/L <35 [facility] Serum or plasma albumin mahnaz urement (mass/volume)Ordered By: Hima Tijerina on 12-20-2024 Albumin [Mass/Vol] 4.2 g/dL 3.4-4.8 [facility] Serum or plasma albumin/glob ulin mass ratioOrdered By: Hima Tijerina on 12-20-2024 Albumin/Globulin [Mass ratio] 1.3 {ratio} 0.9-2.4 [facility] Serum or plasma alkaline jey sphatase measurementOrdered By: Hima Tijerina on 12-20-2024 ALP [Catalytic activity/Vol] 133 U/L High 35-104 [facility] Serum or plasma calcium mahnaz urement (mass/volume)Ordered By: Hima Tijerina on 12-20-2024 Calcium [Mass/Vol] 9.2 mg/dL 7.6-11.0 [facility] Serum or plasma ferritin mimi surement (mass/volume)Ordered By: Hima Tijerina on 12-20-2024 Ferritin [Mass/Vol] 35 ng/mL 22-378 [facility] Serum or plasma iron saturat ion measurement (mass fraction)Ordered By: Hima Tijerina on 12-20-2024 Iron saturation [Mass fraction] 15.0 % 13-59 [facility] Serum or plasma urea nitroge n measurement (mass/volume)Ordered By: Hima Tijerina on 12-20-2024 Urea nitrogen [Mass/Vol] 15 mg/dL 4-19 [facility] Sodium levelOrdered By: Hetal Tijerina on 12-20-2024 Sodium [Moles/Vol] 137 mmol/L 133-145 [facility] T4 Free Directon 12-20-2024 T4 FREE DIRECT 1.70 ng/dL High 0.76-1.46 [facility] Comment on above: Order Comment: HIMA TIJERINA ORDERED A TSH,T4 FREE, CMPDOCTOR SUPPAN ORDERED EVERYTHING ELSE Performed By: #### L 501.9520, L500.4050, L501.9985, L506.0400, L503.0106, L501.5200, L100.0100, L503.6550, L503.6030 ####[facility] [address] [place], [address] T4 freeOrdered By: Hima suazo on 12-20-2024 Free T4 [Mass/Vol] 1.70 ng/dL High 0.76-1.46 [facility] TSH (EXTERNAL)on 12-20-2024 TSH Qn 1.030 m[IU]/L [facility] TSH DL <= 0.005 mIU/L QnOrde red By: Hima Tijerina on 12-20-2024 TSH Qn 1.030 uIU/mL 0.300-4.200 [facility] Thyroid Stim Hormone (TSH)on 12-20-2024 TSH 1.030 uIU/mL Normal 0.300-4.200 [facility] Comment on above: Order Comment: HIMA TIJERINA ORDERED A TSH,T4 FREE, CMPDOCTOR SUPPAN ORDERED EVERYTHING ELSE Performed By: #### L 501.9520, L500.4050, L501.9985, L506.0400, L503.0106, L501.5200, L100.0100, L503.6550, L503.6030 ####[facility] [address] [place], [place], [phone]) Total proteinOrdered By: Sebastian Tijerina on 12-20-2024 Protein [Mass/Vol] 7.5 g/dL 5.9-8.4 [facility] Vitamin B12on 12-20-2024 Cobalamin (Vitamin B12) [Mass/Vol] 381 pg/mL Normal 180-914 [facility] Comment on above: Order Comment: HIMA TIJERINA ORDERED A TSH,T4 FREE, CMPDOCTOR SUPPAN ORDERED EVERYTHING ELSE Performed By: #### L 501.9520, L500.4050, L501.9985, L506.0400, L503.0106, L501.5200, L100.0100, L503.6550, L503.6030 ####[facility] [address] [place], [place], [phone]) Vitamin B12 ser/plasOrdered By: Hima Tijerina on 12-20-2024 Cobalamin (Vitamin B12) [Mass/Vol] 381 pg/mL 180-914 [facility] White blood cell (WBC) count Ordered By: Hima Tijerina on 12-20-2024 WBC (Bld) [#/Vol] 7.2 10*3/uL 4.4-11.0 [facility] Cardiology Visit Reporton Cardiology Visit Report Normal [facility] Thyroidon 07-16-2024 Thyroid Normal [facility] CBC W Auto Differential pane l (Bld)on 05-10-2023 Basophils (Bld) [#/Vol] 0.07 10*3/uL <0.11 k/uL [facility] Basophils/100 WBC (Bld) 0.9 % C [facility] Differential cell count method Nom (Bld) Auto [facility] Eosinophils (Bld) [#/Vol] 0.13 10*3/uL <0.46 k/uL [facility] Eosinophils/100 WBC (Bld) 1.7 % [facility] Erythrocyte distribution width (RBC) [Ratio] 15.8 % High 11.5 - 15.0 % [facility] Hematocrit (Bld) [Volume fraction] 43.2 % 36.0 - 46.0 % [facility] Hemoglobin (Bld) [Mass/Vol] 13.5 g/dL 11.5 - 15.5 g/dL [facility] Immature granulocytes (Bld) [#/Vol] 0.03 10*3/uL <0.10 k/uL [facility] Immature granulocytes/100 WBC (Bld) 0.4 % [facility] Lymphocytes (Bld) [#/Vol] 1.29 10*3/uL 1.00 - 4.00 k/uL [facility] Lymphocytes/100 WBC (Bld) 16.7 % [facility] MCH (RBC) [Entitic mass] 28.6 pg 26. 0 - 34.0 pg [facility] MCHC (RBC) [Mass/Vol] 31.3 g/dL 30.5 - 36.0 g/dL [facility] MCV (RBC) [Entitic vol] 91.5 fL 80.0 - 100.0 fL [facility] Monocytes (Bld) [#/Vol] 1.13 10*3/uL High <0.87 k/uL [facility] Monocytes/100 WBC (Bld) 14.7 % C [facility] Neutrophils (Bld) [#/Vol] 5.06 10*3/uL 1.45 - 7.50 k/uL [facility] Neutrophils/100 WBC (Bld) 65.6 % [facility] Nucleated RBC (Bld) [#/Vol] <0.01 k/uL [facility] Nucleated RBC/100 WBC (Bld) [Ratio] 0.0 /100 WBC [facility] Platelet mean volume (Bld) [Entitic vol] 9.8 fL 9.0 - 12.7 fL [facility] Platelets (Bld) [#/Vol] 328 10*3/uL 150 - 400 k/uL [facility] RBC (Bld) [#/Vol] 4.72 10*6/uL 3.90 - 5.2 0 m/uL [facility] WBC (Bld) [#/Vol] 7.71 10*3/uL 3.70 - 11. 00 k/uL [facility] CNPChanel 05-10-2023 CNPN Telephone (AGGASTW) LIBRA CEJA ([id number]) 1945 F Date Time Provider Department 05/10/23 JANNET EVANS AGGVIVIANA During your visit today, we recorded the following information about you: Heena Davidson 05/10/2023 3:06 PM Signed First call made to reschedule tomorrow's appointment with Jannet Evans @ 2:30 PM, [facility]. Heena Davidson May 10, 2023 3:06 PM Allergies As of Date: 05/10/2023 Noted Allergy Reaction CRESTOR (ROSUVASTATIN CALCIUM) 01/19/2011 14 - Other: See Comments Comments: Myalgia. IBUPROFEN 12/04/2008 14 - Other: See Comments Comments: dizzy PREVNAR 13 (PNEUMOC 13-CHELY CONJ-D*07/27/2015 2 - Rash Comments: Presumed reaction to Prevnar. LATEX 12/08/2008 2 - Rash Comments: Local contact rash. Date Reviewed: 05/10/2023 Reviewed by: Seema Garcia - Fully Assessed Reason for Visit: Appointment Rescheduled [1024] Prescriptions as of 05/10/2023 - warfarin (COUMADIN) 3 mg tablet Take [...] mouth twice daily for 180 days. - Back Brace misc 1 Each once daily. Custom made - amiodarone (PACERONE) 200 mg tablet Take 0.5 tablets by mouth once daily. - dilTIAZem CD (CARDIZEM CD, CARTIA XT) 240 mg 24 hr capsule Take 240 mg by mouth once daily. - furosemide (LASIX) 40 mg tablet Take 1 tablet by mouth twice daily. - WALKER ROLLATOR SEAT WITH 6" WHEELS - RED Daily use R26.81 Gait [...] Epic data Problem List As Of Date 05/10/2023 Noted Resolved Dysphagia, unspecified(787.20) [R13.10] 05/08/2018 [facility] [...] Hypoxemia [R09.02] 06/23/2021 11/08/2022 Hypoxia [R09.02] 06/23/2021 (more content not included)... Normal [facility] - CoagulationOrde red By: Abimael Evans on 02-14-2023 INR Coag (Bld) [Relative time] 1.6 {INR} [facility] Comment on above: Critical Value > 4.0 Whole blood prothrombin time Ordered By: Abimael Evans on 02-14-2023 PT Coag (Bld) [Time] 17.9 s 11.7-14.9 [facility] CBC W Auto Differential pane l (Bld)on 11-08-2022 Basophils (Bld) [#/Vol] 0.08 10*3/uL <0.11 k/uL [facility] Basophils/100 WBC (Bld) 1.0 % [facility] Differential cell count method Nom (Bld) Auto [facility] Eosinophils (Bld) [#/Vol] 0.22 10*3/uL <0.46 k/uL [facility] Eosinophils/100 WBC (Bld) 2.7 % [facility] Erythrocyte distribution width (RBC) [Ratio] 17.0 % High 11.5 - 15.0 % [facility] Hematocrit (Bld) [Volume fraction] 37.9 % 36.0 - 46.0 % [facility] Hemoglobin (Bld) [Mass/Vol] 11.5 g/dL 11.5 - 15.5 g/dL [facility] Immature granulocytes (Bld) [#/Vol] 0.03 10*3/uL <0.10 k/uL [facility] Immature granulocytes/100 WBC (Bld) 0.4 % [facility] Lymphocytes (Bld) [#/Vol] 1.88 10*3/uL 1.00 - 4.00 k/uL [facility] Lymphocytes/100 WBC (Bld) 23.3 % [facility] MCH (RBC) [Entitic mass] 23.9 pg Low 26. 0 - 34.0 pg [facility] MCHC (RBC) [Mass/Vol] 30.3 g/dL Low 30.5 - 36.0 g/dL [facility] MCV (RBC) [Entitic vol] 78.8 fL Low 80.0 - 100.0 fL [facility] Monocytes (Bld) [#/Vol] 1.29 10*3/uL High <0.87 k/uL [facility] Monocytes/100 WBC (Bld) 16.0 % C [facility] Neutrophils (Bld) [#/Vol] 4.56 10*3/uL 1.45 - 7.50 k/uL [facility] Neutrophils/100 WBC (Bld) 56.6 % [facility] Nucleated RBC (Bld) [#/Vol] <0.01 k/uL [facility] Nucleated RBC/100 WBC (Bld) [Ratio] 0.0 /100 WBC [facility] Platelet mean volume (Bld) [Entitic vol] 9.1 fL 9.0 - 12.7 fL [facility] Platelets (Bld) [#/Vol] 370 10*3/uL 150 - 400 k/uL [facility] RBC (Bld) [#/Vol] 4.81 10*6/uL 3.90 - 5.2 0 m/uL [facility] WBC (Bld) [#/Vol] 8.06 10*3/uL 3.70 - 11. 00 k/uL [facility] No Panel Informationon 10-20 [facility] XR Abdomen Supine and Uprigh ton 2022 IMPRESSION: Nonobstructive bowel gas pattern. Signal Worker Helper: PSCB Transcribe Date/Time: 2022 11:52A Dictated by : SCOTT ASIF MD This examination was interpreted and the report reviewed and electronically signed by: SCOTT ASIF MD on 2022 11:55AM [facility] DIVISION OF RADIOLOGY * * *Final Report* * * DATE OF EXAM: Sep 19 2022 3:21PM WOX [id number] - XR ABDOMEN 1V SUPINE / PROCEDURE REASON: multiple diagnoses * * * * Physician Interpretation * * * * EXAM TITLE: XR ABDOMEN 1V SUPINE EXAM DATE/TIME: 09/19/2022 3:21 PM COMPARISON: None. CLINICAL INDICATION/HISTORY: Abdominal swelling. TECHNIQUE: AP views of the abdomen are presented. FINDINGS: No abnormally dilated bowel loops identified. Small amount of stool and gas demonstrated in the large bowel loops. There are vascular calcifications. The bones are osteopenic. There are degenerative changes in the spine and hips. DIVISION OF RADIOLOGY [facility] * * *Final Report* * * DATE OF EXAM: Sep 19 2022 3:21PM WOX [id number] - XR ABDOMEN 1V SUPINE / PROCEDURE REASON: multiple diagnoses * * * * Physician Interpretation * * * * EXAM TITLE: XR ABDOMEN 1V SUPINE EXAM DATE/TIME: 09/19/2022 3:21 PM COMPARISON: None. CLINICAL INDICATION/HISTORY: Abdominal swelling. TECHNIQUE: AP views of the abdomen are presented. FINDINGS: No abnormally dilated bowel loops identified. Small amount of stool and gas demonstrated in the large bowel loops. There are vascular calcifications. The bones are osteopenic. There are degenerative changes in the spine and hips. IMPRESSION IMPRESSION: Nonobstructive bowel gas pattern. Signal Worker Helper: USMAN Transcribe Date/Time: 2022 11:52A Dictated by : SCOTT ASIF MD This examination was interpreted and the report reviewed and electronically signed by: SCOTT ASIF MD on 2022 11:55AM EST [facility] XR Abdomen Supine and Uprigh tOrdered By: Ccf Provider on 2022 [facility] CBC W Auto Differential pane l (Bld)on 09-19-2022 Basophils (Bld) [#/Vol] 0.08 10*3/uL <0.11 k/uL [facility] Basophils/100 WBC (Bld) 0.8 % [facility] Differential cell count method Nom (Bld) Auto [facility] Eosinophils (Bld) [#/Vol] 0.14 10*3/uL <0.46 k/uL [facility] Eosinophils/100 WBC (Bld) 1.4 % [facility] Erythrocyte distribution width (RBC) [Ratio] 17.3 % High 11.5 - 15.0 % [facility] Hematocrit (Bld) [Volume fraction] 39.9 % 36.0 - 46.0 % [facility] Hemoglobin (Bld) [Mass/Vol] 12.2 g/dL 11.5 - 15.5 g/dL [facility] Immature granulocytes (Bld) [#/Vol] 0.06 10*3/uL <0.10 k/uL [facility] Immature granulocytes/100 WBC (Bld) 0.6 % [facility] Lymphocytes (Bld) [#/Vol] 1.82 10*3/uL 1.00 - 4.00 k/uL [facility] Lymphocytes/100 WBC (Bld) 18.3 % [facility] MCH (RBC) [Entitic mass] 24.3 pg Low 26. 0 - 34.0 pg [facility] MCHC (RBC) [Mass/Vol] 30.6 g/dL 30.5 - 36.0 g/dL [facility] MCV (RBC) [Entitic vol] 79.3 fL Low 80.0 - 100.0 fL [facility] Monocytes (Bld) [#/Vol] 1.44 10*3/uL High <0.87 k/uL [facility] Monocytes/100 WBC (Bld) 14.5 % C [facility] Neutrophils (Bld) [#/Vol] 6.42 10*3/uL 1.45 - 7.50 k/uL [facility] Neutrophils/100 WBC (Bld) 64.4 % [facility] Nucleated RBC (Bld) [#/Vol] <0.01 k/uL [facility] Nucleated RBC/100 WBC (Bld) [Ratio] 0.0 /100 WBC [facility] Platelet mean volume (Bld) [Entitic vol] 8.9 fL Low 9.0 - 12.7 fL [facility] Platelets (Bld) [#/Vol] 422 10*3/uL High 150 - 400 k/uL [facility] RBC (Bld) [#/Vol] 5.03 10*6/uL 3.90 - 5.2 0 m/uL [facility] WBC (Bld) [#/Vol] 9.96 10*3/uL 3.70 - 11. 00 k/uL [facility] XR Abdomen Supine and Uprigh ton 09-19-2022 Radiology Study observation (narrative) [facility] US ABDOMEN COMPLETEon 2022 [facility] MRI THORACIC SPINE WO IVCONo n 08-18-2022 [facility] XR Thoracic spine AP and Lat eral and Swimmerson 07-19-2022 IMPRESSION: T9 vertebral body compression deformity/age indeterminate fracture. Signal Worker Helper: USMAN Transcribe Date/Time: Jul 19 2022 2:16P Dictated by : SCOTT ASIF MD This examination was interpreted and the report reviewed and electronically signed by: SCOTT ASIF MD on Jul 19 2022 2:19PM [facility] DIVISION OF RADIOLOGY * * *Final Report* * * DATE OF EXAM: Jul 14 2022 2:39PM WOX [id number] - XR THORACIC 3V AP/LAT/SWIMMERS / PROCEDURE REASON: Upper back pain * * * * Physician Interpretation * * * * EXAM TITLE: XR THORACIC 3V AP/LAT/SWIMMERS EXAM DATE/TIME: 07/14/2022 2:39 PM COMPARISON: None. CLINICAL INDICATION/HISTORY: Upper back pain. TECHNIQUE: AP, swimmer's and lateral views of the thoracic spine are presented FINDINGS: T9 vertebral body compression deformity/age indeterminate fracture is noted. The disc spaces are grossly maintained. There is mild osteophyte formation. The bones are severely osteopenic. There is no paraspinal mass or bony destructive process. Others: Cardiomegaly/enlargeme nt of the cardiac silhouette, with mitral annular calcifications and calcifications in the thoracic aorta. There are reticulations in the bilateral lungs. Right-sided small pleural effusion versus pleural thickening is noted. DIVISION OF RADIOLOGY Provider, [facility] - 07/19/2022 * * *Final Report* * * DATE OF EXAM: Jul 14 2022 2:39PM WOX [id number] - XR THORACIC 3V AP/LAT/SWIMMERS / PROCEDURE REASON: Upper back pain * * * * Physician Interpretation * * * * EXAM TITLE: XR THORACIC 3V AP/LAT/SWIMMERS EXAM DATE/TIME: 07/14/2022 2:39 PM COMPARISON: None. CLINICAL INDICATION/HISTORY: Upper back pain. TECHNIQUE: AP, swimmer's and lateral views of the thoracic spine are presented FINDINGS: T9 vertebral body compression deformity/age indeterminate fracture is noted. The disc spaces are grossly maintained. There is mild osteophyte formation. The bones are severely osteopenic. There is no paraspinal mass or bony destructive process. Others: Cardiomegaly/enlargeme nt of the cardiac silhouette, with mitral annular calcifications and calcifications in the thoracic aorta. There are reticulations in the bilateral lungs. Right-sided small pleural effusion versus pleural thickening is noted. IMPRESSION IMPRESSION: T9 vertebral body compression deformity/age indeterminate fracture. Signal Worker Helper: USMAN Transcribe Date/Time: Jul 19 2022 2:16P Dictated by : SCOTT ASIF MD This examination was interpreted and the report reviewed and electronically signed by: SCOTT ASIF MD on Jul 19 2022 2:19PM EST [facility] XR Thoracic spine AP and Lat eral and SwimmersOrdered By: Ccf Provider on 07-19-2022 [facility] XR Thoracic spine AP and Lat eral and Swimmerson 07-14-2022 Radiology Study observation (narrative) [facility] US THYROID/PARATHYROIDon Radiology Result ACTIONABLE Abnormal [facility] XR RIBS/CHEST 3V AP RIB/OBLS /CXR LEFTon 05-17-2022 [facility] XR Ribs - left Views and Kate st PAon 05-17-2022 IMPRESSION: No radiographic evidence of acute displaced left rib fracture. Small right pleural effusion and/or pleural thickening, slightly decreased when compared with prior study. Signal Worker Helper: [facility] Transcribe Date/Time: May 17 2022 3:07P Dictated by : CRISTIAN QUILES MD This examination was interpreted and the report reviewed and electronically signed by: CRISTIAN QUILES MD on May 17 2022 3:10PM [facility] DIVISION OF RADIOLOGY * * *Final Report* * * DATE OF EXAM: May 17 2022 3:04PM WOX [id number] - XR RIB/CHST 3V AP RIB/OBL/CHST L / PROCEDURE REASON: Rib pain * * * * Physician Interpretation * * * * TITLE: XR RIB/CHST 3V AP RIB/OBL/CHST L CLINICAL INDICATION: Rib pain TECHNIQUE: 3 view left sided radiographic rib series with inclusion of a single frontal view of the chest for purposes of comparison/symmetry. COMPARISON: Correlation made to chest x-ray dated February 11, 2022. FINDINGS: Stable cardiomediastinal silhouette with stable fullness of the right hilum. Small right pleural effusion and/or pleural thickening, slightly decreased when compared with prior study. No discernible pneumothorax. Osseous demineralization. No radiographic evidence of acute displaced left rib fracture. DIVISION OF RADIOLOGY Provider, [facility] - 05/17/2022 * * *Final Report* * * DATE OF EXAM: May 17 2022 3:04PM WOX 5243 - XR RIB/CHST 3V AP RIB/OBL/CHST L / PROCEDURE REASON: Rib pain * * * * Physician Interpretation * * * * TITLE: XR RIB/CHST 3V AP RIB/OBL/CHST L CLINICAL INDICATION: Rib pain TECHNIQUE: 3 view left sided radiographic rib series with inclusion of a single frontal view of the chest for purposes of comparison/symmetry. COMPARISON: Correlation made to chest x-ray dated February 11, 2022. FINDINGS: Stable cardiomediastinal silhouette with stable fullness of the right hilum. Small right pleural effusion and/or pleural thickening, slightly decreased when compared with prior study. No discernible pneumothorax. Osseous demineralization. No radiographic evidence of acute displaced left rib fracture. IMPRESSION IMPRESSION: No radiographic evidence of acute displaced left rib fracture. Small right pleural effusion and/or pleural thickening, slightly decreased when compared with prior study. Signal Worker Helper: PSCB Transcribe Date/Time: May 17 2022 3:07P Dictated by : CRISTIAN QUILES MD This examination was interpreted and the report reviewed and electronically signed by: CRISTIAN QUILES MD on May 17 2022 3:10PM EST [facility] Radiology Study observation (narrative) [facility] XR Ribs - left Views and Kate st PAOrdered By: Ccf Provider on 05-17-2022 [facility] INR in Blood by Coagulation assayOrdered By: Dr. Bonilla on 04-19-2022 INR Coag (Bld) [Relative time] 2.0 {INR} [facility] Laboratory - CoagulationOrde red By: Dr. Bonilla on 04-19-2022 PT Coag (PPP) [Time] 22.1 s 11.7-14.9 [facility] Laboratory - Chemistry and C hemistry - challengeon 03-08-2022 T4 [Mass/Vol] 14.8 ug/dL 4.8-13.9 [facility] Work Phone: No Panel Informationon 03-08 Thyroid Stimulating Hormone (TSH) 1.10 uIU/mL 0.358-3.74 [facility] Work Phone: XR Chest PA and Lateralon IMPRESSION: Grossly stable 2 view chest. Stable right pleural effusion and interstitial infiltrates. Signal Worker Helper: PSCMarly Transcribe Date/Time: Feb 11 2022 4:00P Dictated by : HARLEY CINTRON MD This examination was interpreted and the report reviewed and electronically signed by: HARLEY CINTRON MD on Feb 11 2022 4:04PM [facility] DIVISION OF RADIOLOGY * * *Final Report* * * DATE OF EXAM: Feb 11 2022 3:54PM WOX 5291 - XR CHEST 2V FRONTAL/LAT / PROCEDURE REASON: multiple diagnoses * * * * Physician Interpretation * * * * EXAMINATION: CHEST RADIOGRAPH (2 VIEW FRONTAL & LATERAL) CLINICAL HISTORY: Parapneumonic effusion MQ: XC2_6 EXAM DATE/TIME: 02/11/2022 3:54 PM COMPARISON: Comparison is made to prior study dated 06 February 2022, 03 February 2022 and 31 January 2022 RESULT: Lines, tubes, and devices: None. Lungs and pleura: Small right-sided pleural effusion with fissural fluid and adjacent compressive atelectasis is again identified and unchanged. Right hilar prominence is stable. Diffuse and bilateral interstitial infiltrates are grossly stable. Less trace pleural fluid at the left lung base. Cardiomediastinal silhouette: Unchanged cardiomediastinal silhouette with enlarged cardiac silhouette and unfolded calcified descending thoracic aorta. Bones and soft tissues: Bony structures are osteopenic with stable degenerative change without acute process. DIVISION OF RADIOLOGY Provider, [facility] - 02/11/2022 * * *Final Report* * * DATE OF EXAM: Feb 11 2022 3:54PM WOX 5291 - XR CHEST 2V FRONTAL/LAT / PROCEDURE REASON: multiple diagnoses * * * * Physician Interpretation * * * * EXAMINATION: CHEST RADIOGRAPH (2 VIEW FRONTAL & LATERAL) CLINICAL HISTORY: Parapneumonic effusion MQ: XC2_6 EXAM DATE/TIME: 02/11/2022 3:54 PM COMPARISON: Comparison is made to prior study dated 06 February 2022, 03 February 2022 and 31 January 2022 RESULT: Lines, tubes, and devices: None. Lungs and pleura: Small right-sided pleural effusion with fissural fluid and adjacent compressive atelectasis is again identified and unchanged. Right hilar prominence is stable. Diffuse and bilateral interstitial infiltrates are grossly stable. Less trace pleural fluid at the left lung base. Cardiomediastinal silhouette: Unchanged cardiomediastinal silhouette with enlarged cardiac silhouette and unfolded calcified descending thoracic aorta. Bones and soft tissues: Bony structures are osteopenic with stable degenerative change without acute process. IMPRESSION IMPRESSION: Grossly stable 2 view chest. Stable right pleural effusion and interstitial infiltrates. Signal Worker Helper: PSCB Transcribe Date/Time: Feb 11 2022 4:00P Dictated by : HARLEY CINTRON MD This examination was interpreted and the report reviewed and electronically signed by: HARLEY CINTRON MD on Feb 11 2022 4:04PM [facility] Radiology Study observation (narrative) [facility] XR Chest PA and LateralOrder ed By: Ccf Provider on 02-11-2022 [facility] INR in Blood by Coagulation assayon 02-09-2022 INR Coag (Bld) [Relative time] 1.9 {INR} [facility] Laboratory - Coagulationon 0 02-09-2022 PT Coag (PPP) [Time] 21.8 s 11.7-14.9 [facility] Work Phone: Absolute lymphocyte counton 01-31-2022 Lymphocytes Auto (Unsp spec) [#/Vol] 1.22 10*3/uL 0.83-4.51 [facility] Work Phone: Basophil percentageon 2021 Basophils/100 WBC (Bld) 0.5 % 0-1 [facility] Work Phone: Chloride [Moles/Vol] 101 mmol/L 98-107 [facility] Work Phone: Eosinophils/100 WBC (Bld) 1.7 % 0-5 [facility] Work Phone: Glucose [Mass/Vol] 103 mg/dL 74-106 [facility] Work Phone: Comment on above: Fasting Glucose resu lt from 100 to 125 mg/dL suggests IMPAIRED HOMEOSTASIS per A.D.A. criteria. Neutrophils (Bld) [#/Vol] 10.5 10*3/uL 2.0-7.7 [facility] Work Phone: Neutrophils/100 WBC (Bld) 72.9 % 47-70 [facility] Work Phone: [phone] Potassium [Moles/Vol] 3.6 mmol/L 3.5-5.1 [facility] Work Phone: [phone] Sodium [Moles/Vol] 137 mmol/L 136-145 [facility] Work Phone: [phone] WBC (Bld) [#/Vol] 14.4 10*3/uL 4.4-11.0 [facility] Work Phone: [phone] Blood erythrocytes count (nu mber/volume)on 01-31-2022 RBC (Bld) [#/Vol] 3.80 10*6/uL 4.2-5.4 [facility] Work Phone: Blood hemoglobin measurement (mass/volume)on 01-31-2022 Hemoglobin (Bld) [Mass/Vol] 10.6 g/dL 12.0-15.0 [facility] Work Phone: [phone] Blood lymphocytes/100 leukoc yteson 01-31-2022 Lymphocytes/100 WBC (Bld) 8.4 % 19-41 [facility] Work Phone: [phone] Blood monocytes/100 leukocyt eson 01-31-2022 Monocytes/100 WBC (Bld) 14.1 % 0-10 [facility] Work Phone: [phone] Blood platelet mean volumeon 01-31-2022 Platelet mean volume (Bld) [Entitic vol] 9.1 fL 6.2-12.0 [facility] Work Phone: [phone] Determination of erythrocyte mean corpuscular volume (MCV)on 01-31-2022 MCV (RBC) [Entitic vol] 86.1 fL 81-99 [facility] Work Phone: Hematocrit Auto (Bld) [Volum e fraction]on 01-31-2022 Hematocrit (Bld) [Volume fraction] 32.7 % 37-47 [facility] Work Phone: INR in Blood by Coagulation assayon 01-31-2022 INR Coag (Bld) [Relative time] 2.5 {INR} [facility] Work Phone: Laboratory - Chemistry and C hemistry - challengeon 01-31-2022 CO2 [Moles/Vol] 30.0 mmol/L 21.0-32.0 [facility] Work Phone: Urea nitrogen/Creatinine [Mass ratio] 22.9 mg/mg 10-20 [facility] Work Phone: Laboratory - Coagulationon 0 01-31-2022 PT Coag (PPP) [Time] 26.9 s 11.7-14.9 [facility] Work Phone: Laboratory - Hematology and Cell countson 01-31-2022 Anisocytosis Ql (Bld) 1+ [facility] Work Phone: Erythrocyte distribution width (RBC) [Entitic vol] 47.5 fL 35.1-43.9 [facility] Work Phone: Erythrocyte distribution width (RBC) [Ratio] 15.0 % 11.6-14.6 [facility] Work Phone: Immature granulocytes/100 WBC (Bld) 2.400 % 0.0-0.9 [facility] Work Phone: Comment on above: IG% - Immature Granu locytes (promyelocytes, myelocytes and metamyelocytes) > 1% indicates that a LEFT SHIFT is Present. MCH (RBC) [Entitic mass] 27.9 pg 27.0-32.0 [facility] Work Phone: Nucleated RBC/100 WBC (Bld) [Ratio] 0 % 0-5 [facility] Work Phone: MCHC Auto (RBC) [Mass/Vol]on 01-31-2022 MCHC (RBC) [Mass/Vol] 32.4 g/dL 32-36 [facility] Work Phone: No Panel Informationon 01-31 Estimated Creatinine Clearance Calc 36.12 ml/min [facility] Work Phone: Estimated GFR (MDRD) Amer 122 mL/min >60 [facility] Work Phone: Comment on above: GFR Calc Estimated GFR (MDRD) Non-Af Amer 101 mL/min >60 [facility] Work Phone: Comment on above: Non- GFR Calc Platelets bldon 01-31-2022 Platelets (Bld) [#/Vol] 353 10*3/uL 150-450 [facility] Work Phone: Review by pathologiston 01-04 Pathologist review Alfonzo (Unsp spec) [Interp] Janae cedeno [facility] Work Phone: Pathologist review Alfonzo (Unsp spec) [Interp] Reviewed [facility] Work Phone: Comment on above: Previous reported re sult: Janae cedeno Edited by: RGOMARLENA on 02/01/22:0856Neutrophilic leukocytosis with left shift. Normocytic anemia.Clinical correlation necessary.Fabrizio Watson M.D. 02/01/22 AMENDED REPORT 02/01/22 0856 PATH REV previously reported as: Janae cedeno Serum or plasma calcium mahnaz urement (mass/volume)on 01-31-2022 Calcium [Mass/Vol] 7.8 mg/dL 8.5-10.1 [facility] Work Phone: Serum or plasma creatinine m easurement (mass/volume)on 01-31-2022 Creatinine [Mass/Vol] 0.61 mg/dL 0.55-1.02 [facility] Work Phone: Comment on above: The validity of the calculated GFR & GFRAA in patients over 70 years has not been determined. Clinical correlation is essential. Serum or plasma urea nitroge n measurement (mass/volume)on 01-31-2022 Urea nitrogen [Mass/Vol] 14 mg/dL 7-18 [facility] Work Phone: [phone] Thin prep Papanicolaou smear with manual screeningon 01-31-2022 Thin prep Papanicolaou smear with manual screening 6 5-15 [facility] Work Phone: [phone] Blood manual differential co mment interpretation (narrative result)on 01-30-2022 Manual differential comment Alfonzo (Bld) [Interp] SCANNED [facility] Work Phone: Basophil percentageon 2021 Basophil percentage 2.5 mg/dL 2.5-4.9 [facility] Work Phone: [phone] Basophil percentageon 2021 Bilirubin [Mass/Vol] 0.70 mg/dL 0.20-1.00 [facility] Work Phone: [phone] Comment on above: For patients on eltr ombopag therapy, use of Dimension [place] TBIL is not recommended. Protein [Mass/Vol] 6.7 g/dL 6.4-8.2 [facility] Work Phone: [phone] Laboratory - Chemistry and C hemistry - challengeon 01-27-2022 ALP [Catalytic activity/Vol] 73 U/L 45-117 [facility] Work Phone: [phone] ALT [Catalytic activity/Vol] 29 U/L 13-56 [facility] Work Phone: [phone] Free T4 [Mass/Vol] 1.69 ng/dL 0.76-1.46 [facility] Work Phone: [phone] Globulin (S) [Mass/Vol] 4.2 g/dL 2.2-4.2 [facility] Work Phone: [phone] Magnesium [Mass/Vol] 2.1 mg/dL 1.6-2.6 [facility] Work Phone: [phone] Natriuretic peptide B (Bld) [Mass/Vol] 599.1 pg/mL 0-100 [facility] Work Phone: No Panel Informationon 01-27 Free Triiodothyronine (T3) pg/dL 1.2 pg/mL 2.18-3.98 [facility] Work Phone: [phone] Thyroid Stimulating Hormone (TSH) 0.32 uIU/mL 0.358-3.74 [facility] Work Phone: [phone] Serum or plasma albumin mahnaz urement (mass/volume)on 01-27-2022 Albumin [Mass/Vol] 2.5 g/dL 3.2-5.0 [facility] Work Phone: Serum or plasma albumin/glob ulin mass ratioon 01-27-2022 Albumin/Globulin [Mass ratio] 0.6 {ratio} 0.9-2.4 [facility] Work Phone: [phone] Thin prep Papanicolaou smear with manual screeningon 01-27-2022 Thin prep Papanicolaou smear with manual screening 26 U/L 15-37 [facility] Work Phone: Basophil percentageon 2021 Basophil percentage 0 SEEN /hpf 0-5 [facility] Work Phone: Lactate [Moles/Vol] 1.1 mmol/L 0.4-2.0 [facility] Work Phone: Bilirubin Test strip Ql (U)o n 01-26-2022 Bilirubin Ql (U) Negative Negative [facility] Work Phone: [phone] Body fluid appearanceon 01-04 Appearance (Body fld) TURBID [facility] Work Phone: Body fluid color determinati onon 01-26-2022 Color (Body fld) RED [facility] Work Phone: [phone] Body fluid erythrocytes coun t (number/volume)on 01-26-2022 RBC (Body fld) [#/Vol] 33 10*3/uL [facility] Work Phone: [phone] Body fluid lactate dehydroge nase measurement (enzymatic activity/volume) by pyruvateon 08-24-2022 LDH Pyruvate to lactate reaction (Body fld) [Catalytic activity/Vol] 506 Units/l Not Establ. [facility] Work Phone: Body fluid leukocytes count (number/volume)on 01-26-2022 WBC (Body fld) [#/Vol] 19.668 10*3/uL [facility] Work Phone: [phone] Body fluid lymphocytes/100 l eukocyteson 01-26-2022 Lymphocytes/100 WBC (Body fld) 16 % [facility] Work Phone: [phone] Body fluid protein measureme nt (mass/volume)on 01-26-2022 Protein (Body fld) [Mass/Vol] 4.7 g/dL Not Establ. [facility] Work Phone: [phone] Body fluid segmented neutrop hils count (number/volume)on 01-26-2022 Segmented neutrophils (Body fld) [#/Vol] 84 % [facility] Work Phone: [phone] Cytology report of Body flui d Cyto stainon 01-26-2022 Cytology report Cyto stain Doc (Body fld) SEE PATHOLOGY REPORT [facility] Work Phone: Comment on above: Specimen submitted t o Anatomical Pathology Department for testing. Direct bilirubinon Bilirubin.direct [Mass/Vol] 0.25 mg/dL 0.00-0.30 [facility] Work Phone: [phone] Ketones Test strip Ql (U)on 01-26-2022 Ketones Ql (U) 5 mg/dl Negative [facility] Work Phone: [phone] Laboratory - Coagulationon 0 01-26-2022 aPTT Coag (Bld) [Time] 36.0 s 24.1-36.2 [facility] Work Phone: [phone] Mononuclear cells Auto (Body fld) [#/Vol]on 01-26-2022 Mononuclear cells (Body fld) [#/Vol] 3.407 10*3/uL [facility] Work Phone: Mucus LM Ql (Urine sed)on Mucus Ql (Urine sed) 0 SEEN /hpf [facility] Work Phone: Nitrite Test strip Ql (U)on 01-26-2022 Nitrite Ql (U) Negative Negative [facility] Work Phone: No Panel Informationon 01-26 Methicillin-Resist S.aureus DNA PCR Negative Negative [facility] Work Phone: Body Fluid Comment 2 SEE COMMENT [facility] Work Phone: Body Fluid Glucose 39 mg/dL 40-70 [facility] Work Phone: Body Fluid Mononuclear WBCs (%) 17.3 % [facility] Work Phone: Body Fluid Pathologist Comment Reviewed [facility] Work Phone: Comment on above: Previous reported re sult: May follow Edited by: RGOOD on 01/28/22:916Negative for malignant cells.Marked acute inflammation.Fabrizio Watson M.D. 01/28/22 AMENDED REPORT 01/28/22916 PATH COMM/BF previously reported as: May follow Body Fluid Polynuclear WBCs (#) 16.235 10^3/uL [facility] Work Phone: [phone] Body Fluid Polynuclear WBCs (%) 82.7 % [facility] Work Phone: [phone] D-Dimer Quantitative (PE/DVT) 1.53 FEU/ug/m 0.27-0.49 [facility] Work Phone: Comment on above: D-Dimer ELEVATED (>0 .49): Additional studies and clinicalassessments are indicated to conclude diagnosis of:Deep Vein Thrombosis (DVT) or Pulmonary Embolism (PE)CRITICAL VALUE VERIFIED. CALLED TO Usman ANDRADE RN ER01/26/22 0619 Eduardo Montes De Oca.RESULTS READ BACK BY SAME. Troponin I High Sensitivity 10 pg/mL 3.0-54.0 [facility] Work Phone: Comment on above: Please Note: New [place] t Units and Gender Specific Reference Ranges. For more information see Policy Stat Procedure [place] High Sensitivity Troponin (TNIH) and attachments. Protein Test strip Ql (U)on 01-26-2022 Protein Ql (U) 30 mg/dl Negative [facility] Work Phone: [phone] Specimen source identificati on of body fluidon 01-26-2022 Specimen source Nom (Body fld) THORACENTESIS [facility] Work Phone: [phone] Squamous epithelial cells de tection in urine sediment by light microscopyon 01-26-2022 Epithelial cells.squamous LM Ql (Urine sed) 0-5 SEEN /hpf 5-10 [facility] Work Phone: [phone] Thin prep Papanicolaou smear with manual screeningon 01-26-2022 Thin prep Papanicolaou smear with manual screening 192 U/L 84-246 [facility] Work Phone: Total cell counton Cells counted Molgen (Bld/Tiss) [#] 19.680 10^3/ul 0.000-0.000 [facility] Work Phone: Comment on above: This is the Total Nu mber of Nucleated Cell Types in the Body Fluid. Urine blood detectionon 01-04 RBC Ql (U) 10 /ul Negative [facility] Work Phone: [phone] RBC Ql (U) 0-5 SEEN /hpf 0-5 [facility] Work Phone: Urine clarityon 01-26-2022 Clarity (U) Clear Clear [facility] Work Phone: Urine color determinationon 01-26-2022 Color (U) Yellow Yellow [facility] Work Phone: Urine glucose detectionon Glucose Ql (U) Normal mg/dl Normal [facility] Work Phone: [phone] Urine leukocyte esterase det ection by dipstickon 01-26-2022 Leukocyte esterase Test strip Ql (U) Negative Negative [facility] Work Phone: [phone] Urine pHon 01-26-2022 pH (U) 6.0 [pH] 5.0 - 8.0 [facility] Work Phone: [phone] Urine sediment bacteria coun t by microscopy (number/high power field)on 01-26-2022 Bacteria LM.HPF (Urine sed) [#/Area] 0 /[HPF] None Seen [facility] Work Phone: Urine specific gravity measu rementon 01-26-2022 Specific gravity (U) [Rel density] 1.015 1.002-1.030 [facility] Work Phone: [phone] Urobilinogen Auto test strip Ql (U)on 01-26-2022 Urobilinogen Ql (U) Normal mg/dl Normal [facility] Work Phone: Basophil percentageon 2021 Bilirubin [Mass/Vol] 0.50 mg/dL 0.20-1.00 [facility] Work Phone: [phone] Comment on above: For patients on eltr ombopag therapy, use of Dimension [place] TBIL is not recommended. Protein [Mass/Vol] 8.0 g/dL 6.4-8.2 [facility] Work Phone: Direct bilirubinon Bilirubin.direct [Mass/Vol] 0.14 mg/dL 0.00-0.30 [facility] Work Phone: [phone] Laboratory - Chemistry and C hemistry - challengeon 11-08-2021 ALP [Catalytic activity/Vol] 105 U/L 45-117 [facility] Work Phone: [phone] ALT [Catalytic activity/Vol] 21 U/L 13-56 [facility] Work Phone: [phone] Globulin (S) [Mass/Vol] 4.5 g/dL 2.2-4.2 [facility] Work Phone: [phone] Serum or plasma albumin mahnaz urement (mass/volume)on 11-08-2021 Albumin [Mass/Vol] 3.5 g/dL 3.2-5.0 [facility] Work Phone: [phone] Thin prep Papanicolaou smear with manual screeningon 11-08-2021 Thin prep Papanicolaou smear with manual screening 22 U/L 15-37 [facility] Work Phone: XR CHEST 2V FRONTAL/LATon [facility] XR Chest PA and Lateralon IMPRESSION: 1. Small to moderate right pleural effusion, decreased in size. 2. No discernible residual left pneumothorax. 3. Prominence of the claudia which may be related vascular in etiology. Signal Worker Helper: USMAN Transcribe Date/Time: Oct 04 2021 4:29P Dictated by : CRISTIAN QUILES MD This examination was interpreted and the report reviewed and electronically signed by: CRISTIAN QUILES MD on Oct 04 2021 4:31PM EST [email or web address] _DIVISION OF RADIOLOGY * * *Final Report* * * DATE OF EXAM: Oct 04 2021 3:24PM WOX 5291 - XR CHEST 2V FRONTAL/LAT / PROCEDURE REASON: Pleural effusion, right * * * * Physician Interpretation * * * * EXAMINATION: CHEST RADIOGRAPH (2 VIEW FRONTAL & LATERAL) CLINICAL HISTORY: Pleural effusion, right MQ: XC2_6 EXAM DATE/TIME: 10/04/2021 3:24 PM COMPARISON: Chest x-ray dated August 25, 2021 RESULT: Lines, tubes, and devices: None. Lungs and pleura: Small to moderate right pleural effusion, decreased in size. No appreciable residual left pleural effusion. No discernible pneumothorax. Cardiomediastinal silhouette: Heart top normal in size. Prominence of the bilateral claudia which may be vascular in etiology. Bones and soft tissues: Osseous demineralization. Stable mild wedging of a lower thoracic vertebral body. [id number] _DIVISION OF RADIOLOGY Provider, [facility] - 10/04/2021 * * *Final Report* * * DATE OF EXAM: Oct 04 2021 3:24PM WOX 5291 - XR CHEST 2V FRONTAL/LAT / PROCEDURE REASON: Pleural effusion, right * * * * Physician Interpretation * * * * EXAMINATION: CHEST RADIOGRAPH (2 VIEW FRONTAL & LATERAL) CLINICAL HISTORY: Pleural effusion, right MQ: XC2_6 EXAM DATE/TIME: 10/04/2021 3:24 PM COMPARISON: Chest x-ray dated August 25, 2021 RESULT: Lines, tubes, and devices: None. Lungs and pleura: Small to moderate right pleural effusion, decreased in size. No appreciable residual left pleural effusion. No discernible pneumothorax. Cardiomediastinal silhouette: Heart top normal in size. Prominence of the bilateral claudia which may be vascular in etiology. Bones and soft tissues: Osseous demineralization. Stable mild wedging of a lower thoracic vertebral body. IMPRESSION IMPRESSION: 1. Small to moderate right pleural effusion, decreased in size. 2. No discernible residual left pneumothorax. 3. Prominence of the claudia which may be related vascular in etiology. Signal Worker Helper: USMAN Transcribe Date/Time: Oct 04 2021 4:29P Dictated by : CRISTIAN QUILES MD This examination was interpreted and the report reviewed and electronically signed by: CRISTIAN QUILES MD on Oct 04 2021 4:31PM EST [facility] Radiology Study observation (narrative) Iam burgos [facility] XR Chest PA and LateralOrder ed By: Ccf Provider on 10-04-2021 [facility] INR in Blood by Coagulation assayon 09-16-2021 INR Coag (Bld) [Relative time] 1.1 {INR} [facility] Work Phone: Laboratory - Coagulationon 0 09-16-2021 aPTT Coag (Bld) [Time] 29.1 s 24.1-36.2 [facility] Work Phone: PT Coag (PPP) [Time] 14.3 s 11.7-14.9 [facility] Work Phone: [phone] Platelets bldon 09-16-2021 Platelets (Bld) [#/Vol] 364 10*3/uL 150-450 [facility] Work Phone: Basophil percentageon 2021 Chloride [Moles/Vol] 101 mmol/L 98-107 [facility] Work Phone: Glucose [Mass/Vol] 118 mg/dL 74-106 [facility] Work Phone: Comment on above: Fasting Glucose resu lt from 100 to 125 mg/dL suggests IMPAIRED HOMEOSTASIS per A.D.A. criteria. Potassium [Moles/Vol] 4.0 mmol/L 3.5-5.1 [facility] Work Phone: Sodium [Moles/Vol] 135 mmol/L 136-145 [facility] Work Phone: [phone] WBC (Bld) [#/Vol] 10.2 10*3/uL 4.4-11.[facility]: Blood erythrocytes count (nu mber/volume)on 09-09-2021 RBC (Bld) [#/Vol] 4.67 10*6/uL 4.2-5.4 [facility] Work Phone: Blood hemoglobin measurement (mass/volume)on 09-09-2021 Hemoglobin (Bld) [Mass/Vol] 12.3 g/dL 12.0-15.0 [facility] Work Phone: [phone] Blood platelet mean volumeon 09-09-2021 Platelet mean volume (Bld) [Entitic vol] 8.6 fL 6.2-12.0 [facility] Work Phone: [phone] Determination of erythrocyte mean corpuscular volume (MCV)on 09-09-2021 MCV (RBC) [Entitic vol] 83.9 fL 81-99 [facility] Work Phone: [phone] Hematocrit Auto (Bld) [Volum e fraction]on 09-09-2021 Hematocrit (Bld) [Volume fraction] 39.2 % 37-47 [facility] Work Phone: Laboratory - Chemistry and C hemistry - challengeon 09-09-2021 CO2 [Moles/Vol] 29.0 mmol/L 21.0-32.0 [facility] Work Phone: Natriuretic peptide B (Bld) [Mass/Vol] 665.6 pg/mL 0-100 [facility] Work Phone: [phone] Urea nitrogen/Creatinine [Mass ratio] 12.3 mg/mg 10-20 [facility] Work Phone: [phone] Laboratory - Hematology and Cell countson 09-09-2021 Erythrocyte distribution width (RBC) [Entitic vol] 48.8 fL 35.1-43.9 [facility] Work Phone: Erythrocyte distribution width (RBC) [Ratio] 16.0 % 11.6-14.6 [facility] Work Phone: MCH (RBC) [Entitic mass] 26.3 pg 27.0-32.0 [facility] Work Phone: MCHC Auto (RBC) [Mass/Vol]on 09-09-2021 MCHC (RBC) [Mass/Vol] 31.4 g/dL 32-36 [facility] Work Phone: No Panel Informationon 09-09 Estimated GFR (MDRD) Amer 60 mL/min >60 [facility] Work Phone: Comment on above: GFR Calc Estimated GFR (MDRD) Non-Af Amer 49 mL/min >60 [facility] Work Phone: Comment on above: Non- GFR Calc Platelets bldon 09-09-2021 Platelets (Bld) [#/Vol] 452 10*3/uL 150-450 [facility] Work Phone: Serum or plasma calcium mahnaz urement (mass/volume)on 09-09-2021 Calcium [Mass/Vol] 8.6 mg/dL 8.5-10.1 [facility] Work Phone: Serum or plasma creatinine m easurement (mass/volume)on 09-09-2021 Creatinine [Mass/Vol] 1.14 mg/dL 0.55-1.02 [facility] Work Phone: Comment on above: The validity of the calculated GFR & GFRAA in patients over 70 years has not been determined. Clinical correlation is essential. Serum or plasma urea nitroge n measurement (mass/volume)on 09-09-2021 Urea nitrogen [Mass/Vol] 14 mg/dL 7-18 [facility] Work Phone: Thin prep Papanicolaou smear with manual screeningon 09-09-2021 Thin prep Papanicolaou smear with manual screening 5 5-15 [facility] Work Phone: INR in Blood by Coagulation assayon 08-25-2021 INR Coag (Bld) [Relative time] 2.9 {INR} [facility] Laboratory - Coagulationon 0 08-25-2021 PT Coag (PPP) [Time] 29.4 s 11.7-14.9 [facility] Work Phone: XR Chest PA and Lateralon IMPRESSION: Interval slight worsening of right-sided pleural effusion, with atelectasis/infiltrate s in right lung. Left-sided trace/small pleural effusion. Findings are suggestive of pulmonary venous congestion. Signal Worker Helper: PSCB Transcribe Date/Time: Aug 25 2021 3:34P Dictated by : SCOTT ASIF MD This examination was interpreted and the report reviewed and electronically signed by: SCOTT ASIF MD on Aug 25 2021 3:38PM [facility] DIVISION OF RADIOLOGY * * *Final Report* * * DATE OF EXAM: Aug 25 2021 3:27PM WOX 5291 - XR CHEST 2V FRONTAL/LAT / PROCEDURE REASON: multiple diagnoses * * * * Physician Interpretation * * * * EXAMINATION: CHEST RADIOGRAPH (2 VIEW FRONTAL & LATERAL) CLINICAL HISTORY: SOB (shortness of breath) Pleural effusion MQ: XC2_6 EXAM DATE/TIME: 08/25/2021 3:27 PM COMPARISON: Chest x-ray on 07/28/2021. RESULT: Lines, tubes, and devices: None. Lungs and pleura: There is moderate probably partially loculated right-sided pleural effusion, slightly worsened. Associated right lung atelectasis/infiltrate is also noted. There is trace/small left-sided pleural effusion, better visualized on lateral view. There appear to be pulmonary vascular cephalization and obscuring of the pulmonary markings. No pneumothorax seen. Cardiomediastinal silhouette: Difficult to evaluate cardiac silhouette and mediastinal contour due to respiratory pleural effusion. There is tortuosity of the thoracic aorta with atherosclerotic calcifications. Mitral annular calcifications seen. Bones and soft tissues: The spine shows degenerative changes. DIVISION OF RADIOLOGY Provider, [facility] - 08/25/2021 * * *Final Report* * * DATE OF EXAM: Aug 25 2021 3:27PM WOX 5291 - XR CHEST 2V FRONTAL/LAT / PROCEDURE REASON: multiple diagnoses * * * * Physician Interpretation * * * * EXAMINATION: CHEST RADIOGRAPH (2 VIEW FRONTAL & LATERAL) CLINICAL HISTORY: SOB (shortness of breath) Pleural effusion MQ: XC2_6 EXAM DATE/TIME: 08/25/2021 3:27 PM COMPARISON: Chest x-ray on 07/28/2021. RESULT: Lines, tubes, and devices: None. Lungs and pleura: There is moderate probably partially loculated right-sided pleural effusion, slightly worsened. Associated right lung atelectasis/infiltrate is also noted. There is trace/small left-sided pleural effusion, better visualized on lateral view. There appear to be pulmonary vascular cephalization and obscuring of the pulmonary markings. No pneumothorax seen. Cardiomediastinal silhouette: Difficult to evaluate cardiac silhouette and mediastinal contour due to respiratory pleural effusion. There is tortuosity of the thoracic aorta with atherosclerotic calcifications. Mitral annular calcifications seen. Bones and soft tissues: The spine shows degenerative changes. IMPRESSION IMPRESSION: Interval slight worsening of right-sided pleural effusion, with atelectasis/infiltrate s in right lung. Left-sided trace/small pleural effusion. Findings are suggestive of pulmonary venous congestion. Signal Worker Helper: PSCB Transcribe Date/Time: Aug 25 2021 3:34P Dictated by : SCOTT ASIF MD This examination was interpreted and the report reviewed and electronically signed by: SCOTT ASIF MD on Aug 25 2021 3:38PM EST [facility] Radiology Study observation (narrative) Iam burgos [facility] XR Chest PA and LateralOrder ed By: Ccf Provider on 08-25-2021 [facility] Basophil percentageon 2021 Chloride [Moles/Vol] 99 mmol/L 98-107 [facility] Work Phone: Glucose [Mass/Vol] 101 mg/dL 74-106 [facility] Work Phone: Comment on above: Fasting Glucose resu lt from 100 to 125 mg/dL suggests IMPAIRED HOMEOSTASIS per A.D.A. criteria. Potassium [Moles/Vol] 4.1 mmol/L 3.5-5.1 [facility] Work Phone: [phone] Sodium [Moles/Vol] 133 mmol/L 136-145 [facility] Work Phone: [phone] WBC (Bld) [#/Vol] 7.6 10*3/uL 4.4-11.0 [facility] Work Phone: [phone] Blood erythrocytes count (nu mber/volume)on 08-05-2021 RBC (Bld) [#/Vol] 4.38 10*6/uL 4.2-5.4 [facility] Work Phone: [phone] Blood hemoglobin measurement (mass/volume)on 08-05-2021 Hemoglobin (Bld) [Mass/Vol] 12.7 g/dL 12.0-15.0 [facility] Work Phone: [phone] Blood platelet mean volumeon 08-05-2021 Platelet mean volume (Bld) [Entitic vol] 9.3 fL 6.2-12.0 [facility] Work Phone: [phone] Determination of erythrocyte mean corpuscular volume (MCV)on 08-05-2021 MCV (RBC) [Entitic vol] 88.1 fL 81-99 [facility] Work Phone: [phone] Hematocrit Auto (Bld) [Volum e fraction]on 08-05-2021 Hematocrit (Bld) [Volume fraction] 38.6 % 37-47 [facility] Work Phone: [phone] Laboratory - Chemistry and C hemistry - challengeon 08-05-2021 CO2 [Moles/Vol] 31.0 mmol/L 21.0-32.0 [facility] Work Phone: [phone] Urea nitrogen/Creatinine [Mass ratio] 13.5 mg/mg 10-20 [facility] Work Phone: [phone] Laboratory - Hematology and Cell countson 08-05-2021 Erythrocyte distribution width (RBC) [Entitic vol] 51.9 fL 35.1-43.9 [facility] Work Phone: [phone] Erythrocyte distribution width (RBC) [Ratio] 16.1 % 11.6-14.6 [facility] [facility] Work Phone: MCH (RBC) [Entitic mass] 29.0 pg 27.0-32.0 [facility] Work Phone: MCHC Auto (RBC) [Mass/Vol]on 08-05-2021 MCHC (RBC) [Mass/Vol] 32.9 g/dL 32-36 [facility] Work Phone: No Panel Informationon 08-05 Anti-Nuclear Antibody Screen Negative Negative [facility] Work Phone: Comment on above: Performed at: [facility] [place] [id number] Director: Rob Read PhD, Phone: [phone] Estimated GFR (MDRD) Amer 72 mL/min >60 [facility] Work Phone: Comment on above: GFR Calc Estimated GFR (MDRD) Non-Af Amer 60 mL/min >60 [facility] Work Phone: Comment on above: Non- GFR Calc Platelets bldon 08-05-2021 Platelets (Bld) [#/Vol] 458 10*3/uL 150-450 [facility] Work Phone: Serum or plasma C reactive p rotein measurement (mass/volume)on 08-05-2021 CRP [Mass/Vol] 3.21 mg/L 0.0-3.0 [facility] Work Phone: Comment on above: C-Reactive Protein ( CRP) provides useful information for thediagnosis, therapy and monitoring of inflammatory processesand associated diseases. For the evaluation of Relative Riskfor Cardiovascular Disease, a High Sensitivity CRP (HSCRP)should be ordered. Serum or plasma calcium mahnaz urement (mass/volume)on 08-05-2021 Calcium [Mass/Vol] 8.8 mg/dL 8.5-10.1 [facility] Work Phone: [phone] Serum or plasma creatinine m easurement (mass/volume)on 08-05-2021 Creatinine [Mass/Vol] 0.96 mg/dL 0.55-1.02 [facility] Work Phone: Comment on above: The validity of the calculated GFR & GFRAA in patients over 70 years has not been determined. Clinical correlation is essential. Serum or plasma urea nitroge n measurement (mass/volume)on 08-05-2021 Urea nitrogen [Mass/Vol] 13 mg/dL 7-18 [facility] Work Phone: Serum rheumatoid factor dete ctionon 08-05-2021 Rheumatoid factor Ql (S) < 10.0 IU/mL <15 [facility] Work Phone: Thin prep Papanicolaou smear with manual screeningon 08-05-2021 Thin prep Papanicolaou smear with manual screening 3 5-15 [facility] Work Phone: INR in Blood by Coagulation assayon 08-04-2021 INR Coag (Bld) [Relative time] 1.9 {INR} [facility] Work Phone: Laboratory - Coagulationon 0 08-04-2021 PT Coag (PPP) [Time] 21.3 s 11.7-14.9 [facility] Work Phone: PT panel Coag (PPP)on 2021 INR Coag (Bld) [Relative time] 1.5 EXT [facility] INR in Blood by Coagulation assayon 07-28-2021 INR Coag (Bld) [Relative time] 1.2 {INR} [facility] Work Phone: Laboratory - Coagulationon 0 07-28-2021 PT Coag (PPP) [Time] 14.1 s 11.7-14.9 [facility] Work Phone: XR Chest PA and Lateralon IMPRESSION: Stable right pleural effusion. Signal Worker Helper: PSCB Transcribe Date/Time: Jul 28 2021 2:46P Dictated by : SANTI LÓPEZ MD This examination was interpreted and the report reviewed and electronically signed by: SANTI LÓPEZ MD on Jul 28 2021 2:47PM [facility] DIVISION OF RADIOLOGY * * *Final Report* * * DATE OF EXAM: Jul 28 2021 2:36PM WOX 5291 - XR CHEST 2V FRONTAL/LAT / PROCEDURE REASON: Recurrent right pleural effusion * * * * Physician Interpretation * * * * EXAMINATION: CHEST RADIOGRAPH (2 VIEW FRONTAL & LATERAL) CLINICAL HISTORY: Recurrent right pleural effusion MQ: XC2_6 EXAM DATE/TIME: 07/28/2021 2:36 PM COMPARISON: 07/02/2021 RESULT: Lines, tubes, and devices: None. Lungs and pleura: Moderate size right pleural effusion, not significantly changed. No definite consolidation. No pneumothorax. Cardiomediastinal silhouette: Stable cardiomediastinal silhouette. Bones and soft tissues: Unremarkable. DIVISION OF RADIOLOGY Provider, [facility] - 07/28/2021 * * *Final Report* * * DATE OF EXAM: Jul 28 2021 2:36PM WOX 5291 - XR CHEST 2V FRONTAL/LAT / PROCEDURE REASON: Recurrent right pleural effusion * * * * Physician Interpretation * * * * EXAMINATION: CHEST RADIOGRAPH (2 VIEW FRONTAL & LATERAL) CLINICAL HISTORY: Recurrent right pleural effusion MQ: XC2_6 EXAM DATE/TIME: 07/28/2021 2:36 PM COMPARISON: 07/02/2021 RESULT: Lines, tubes, and devices: None. Lungs and pleura: Moderate size right pleural effusion, not significantly changed. No definite consolidation. No pneumothorax. Cardiomediastinal silhouette: Stable cardiomediastinal silhouette. Bones and soft tissues: Unremarkable. IMPRESSION IMPRESSION: Stable right pleural effusion. Signal Worker Helper[facility] Transcribe Date/Time: Jul 28 2021 2:46P Dictated by : SANTI LÓPEZ MD This examination was interpreted and the report reviewed and electronically signed by: SANTI LÓPEZ MD on Jul 28 2021 2:47PM EST [facility] Radiology Study observation (narrative) Iam Lacy XR Chest PA and LateralOrder ed By: Ccf Provider on 07-28-2021 [facility] INR in Blood by Coagulation assayon 07-21-2021 INR Coag (Bld) [Relative time] 1.2 {INR} [facility] Work Phone: Laboratory - Coagulationon 0 07-21-2021 PT Coag (PPP) [Time] 14.4 s 11.7-14.9 [facility] Work Phone: Absolute lymphocyte counton 07-20-2021 Lymphocytes Auto (Unsp spec) [#/Vol] 1.56 10*3/uL 0.83-4.51 [facility] Work Phone: Basophil percentageon 2021 Basophils/100 WBC (Bld) 0.9 % 0-1 [facility] Work Phone: Chloride [Moles/Vol] 102 mmol/L 98-107 [facility] Work Phone: Eosinophils/100 WBC (Bld) 6.2 % 0-5 [facility] Work Phone: Glucose [Mass/Vol] 90 mg/dL 74-106 [facility] Work Phone: Neutrophils (Bld) [#/Vol] 6.5 10*3/uL 2.0-7.7 [facility] Work Phone: Neutrophils/100 WBC (Bld) 64.1 % 47-70 [facility] Work Phone: Potassium [Moles/Vol] 4.3 mmol/L 3.5-5.1 [facility] Work Phone: Sodium [Moles/Vol] 136 mmol/L 136-145 [facility] Work Phone: WBC (Bld) [#/Vol] 10.2 10*3/uL 4.4-11.0 [facility] Work Phone: Blood erythrocytes count (nu mber/volume)on 07-20-2021 RBC (Bld) [#/Vol] 4.31 10*6/uL 4.2-5.4 [facility] Work Phone: Blood hemoglobin measurement (mass/volume)on 07-20-2021 Hemoglobin (Bld) [Mass/Vol] 12.1 g/dL 12.0-15.0 [facility] Work Phone: Blood lymphocytes/100 leukoc yteson 07-20-2021 Lymphocytes/100 WBC (Bld) 15.3 % 19-41 [facility] Work Phone: Blood monocytes/100 leukocyt eson 07-20-2021 Monocytes/100 WBC (Bld) 12.3 % 0-10 [facility] Work Phone: Blood platelet mean volumeon 07-20-2021 Platelet mean volume (Bld) [Entitic vol] 9.3 fL 6.2-12.0 [facility] Work Phone: Determination of erythrocyte mean corpuscular volume (MCV)on 07-20-2021 MCV (RBC) [Entitic vol] 85.8 fL 81-99 [facility] Work Phone: Hematocrit Auto (Bld) [Volum e fraction]on 07-20-2021 Hematocrit (Bld) [Volume fraction] 37.0 % 37-47 [facility] Work Phone: Laboratory - Chemistry and C hemistry - challengeon 07-20-2021 CO2 [Moles/Vol] 30.0 mmol/L 21.0-32.0 [facility] Work Phone: Urea nitrogen/Creatinine [Mass ratio] 14.9 mg/mg 10-20 [facility] Work Phone: Laboratory - Coagulationon 0 07-20-2021 aPTT Coag (Bld) [Time] 32.3 s 24.1-36.2 [facility] Work Phone: Laboratory - Hematology and Cell countson 07-20-2021 Erythrocyte distribution width (RBC) [Entitic vol] 49.0 fL 35.1-43.9 [facility] Work Phone: Erythrocyte distribution width (RBC) [Ratio] 15.8 % 11.6-14.6 [facility] Work Phone: Immature granulocytes/100 WBC (Bld) 1.200 % 0.0-0.9 [facility] Work Phone: Comment on above: IG% - Immature Granu locytes (promyelocytes, myelocytes and metamyelocytes) > 1% indicates that a LEFT SHIFT is Present. MCH (RBC) [Entitic mass] 28.1 pg 27.0-32.0 [facility] Work Phone: [phone] Nucleated RBC/100 WBC (Bld) [Ratio] 0 % 0-5 [facility] Work Phone: [phone] MCHC Auto (RBC) [Mass/Vol]on 07-20-2021 MCHC (RBC) [Mass/Vol] 32.7 g/dL 32-36 [facility] Work Phone: No Panel Informationon 07-20 Estimated Creatinine Clearance Calc 39.02 ml/min [facility] Work Phone: [phone] Estimated GFR (MDRD) Amer 74 mL/min >60 [facility] Work Phone: Comment on above: GFR Calc Estimated GFR (MDRD) Non-Af Amer 61 mL/min >60 [facility] Work Phone: Comment on above: Non- GFR Calc Platelets bldon 07-20-2021 Platelets (Bld) [#/Vol] 338 10*3/uL 150-450 [facility] Work Phone: [phone] Serum or plasma calcium mahnaz urement (mass/volume)on 07-20-2021 Calcium [Mass/Vol] 8.7 mg/dL 8.5-10.1 [facility] Work Phone: [phone] Serum or plasma creatinine m easurement (mass/volume)on 07-20-2021 Creatinine [Mass/Vol] 0.94 mg/dL 0.55-1.02 [facility] Work Phone: Comment on above: The validity of the calculated GFR & GFRAA in patients over 70 years has not been determined. Clinical correlation is essential. Serum or plasma urea nitroge n measurement (mass/volume)on 07-20-2021 Urea nitrogen [Mass/Vol] 14 mg/dL 7-18 [facility] Work Phone: [phone] Thin prep Papanicolaou smear with manual screeningon 07-20-2021 Thin prep Papanicolaou smear with manual screening 4 5-15 [facility] Work Phone: Vancomycin troughon 07-18-19 Vancomycin trough [Mass/Vol] 16.8 ug/mL 5.0-15.0 [facility] Work Phone: Comment on above: VANCOMYCIN STANDARED DRUG THERAPY TROUGH LEVEL: 5.0 - 15.0 mg/L VANCOMYCIN HIGH INTENSITY THERAPY TROUGH LEVEL: 15.0 - 20.0 mg/L High Intensity therapy recommended for serious lifethreatening infections include:- Eholitvmsr-Irqtnvekjmim-Tfmepsjpl (Ventilator/Healtcare Associated)-Sepsis PLEASE CONTACT PHARMACY SERVICES (#1901) FOR INTERPRETATIONOF RESULTS. Blood manual differential co mment interpretation (narrative result)on 07-17-2021 Manual differential comment Alfonzo (Bld) [Interp] SCANNED [facility] Work Phone: Review by pathologiston 07-06 Pathologist review Alfonzo (Unsp spec) [Interp] Reviewed [facility] Work Phone: Comment on above: Previous reported re sult: Janae cedeno Edited by: RGOOD on 07/19/21:1352Neutrophilic leukocytosis.Clinical correlation necessary.Fabrizio Watson M.D. 07/19/21 AMENDED REPORT 07/19/21 1352 PATH REV previously reported as: Janae cedeno Bacteria identified Anaer cx Nom (Unsp spec)on 07-16-2021 Anaerobic microbial culture No anaerobic bacteria isolated. [facility] Work Phone: Basophil percentageon 2021 Protein [Mass/Vol] 7.8 g/dL 6.4-8.2 [facility] Work Phone: Body fluid appearanceon 07-06 Appearance (Body fld) TURBID [facility] Work [place]: Body fluid color determinati onon 07-16-2021 Color (Body fld) SLIGHTLY PINK [facility] Work Phone: [phone] Body fluid erythrocytes coun t (number/volume)on 07-16-2021 RBC (Body fld) [#/Vol] 25 10*3/uL [facility] Work Phone: Body fluid lactate dehydroge nase measurement (enzymatic activity/volume) by pyruvateon 07-16-2021 LDH Pyruvate to lactate reaction (Body fld) [Catalytic activity/Vol] 270 Units/l Not Establ. [facility] Work Phone: Body fluid leukocytes count (number/volume)on 07-16-2021 WBC (Body fld) [#/Vol] 1.843 10*3/uL [facility] Work Phone: Body fluid lymphocytes/100 l eukocyteson 07-16-2021 Lymphocytes/100 WBC (Body fld) 62 % [facility] Work Phone: Body fluid macrophage counto n 07-16-2021 Macrophages (Body fld) [#/Vol] 22 % [facility] Work Phone: Body fluid mesothelial cell percentageon 07-16-2021 Mesothelial cells/100 WBC (Body fld) 9 % [facility] Work Phone: Body fluid protein measureme nt (mass/volume)on 07-16-2021 Protein (Body fld) [Mass/Vol] 4.1 g/dL Not Establ. [facility] Work Phone: Body fluid segmented neutrop hils count (number/volume)on 07-16-2021 Segmented neutrophils (Body fld) [#/Vol] 1 % [facility] Work Phone: Cytology report of Body flui d Cyto stainon 07-16-2021 Cytology report Cyto stain Doc (Body fld) SEE PATHOLOGY REPORT [facility] Work Phone: Comment on above: Specimen submitted t o Anatomical Pathology Department for testing. Gram stain for investigation of transfusion reactionon 07-16-2021 Microscopic observation Gram stain Nom (Unsp spec) [facility] Work Phone: Laboratory - Chemistry and C hemistry - challengeon 07-16-2021 Globulin (S) [Mass/Vol] 4.8 g/dL 2.2-4.2 [facility] Work Phone: Magnesium [Mass/Vol] 2.0 mg/dL [facility] Work Phone: Comment on above: Performed at: [address] [id number] Director: Rob Read PhD, Phone: [phone] Laboratory - Hematology and Cell countson 07-16-2021 Anisocytosis Ql (Bld) 1+ [facility] Work Phone: Mononuclear cells Auto (Body fld) [#/Vol]on 07-16-2021 Mononuclear cells (Body fld) [#/Vol] 1.778 10*3/uL [facility] Work Phone: No Panel Informationon 07-16 Body Fluid Comment 2 SEE COMMENT [facility] Work Phone: Body Fluid Glucose 130 mg/dL 40-70 [facility] Work Phone: Comment on above: Previous reported re sult: 129 mg/dLEdited by: YOLA on 07/23/21:1509 AMENDED REPORT 07/23/21 1509 GLU,BF previously reported as: 129 H mg/dL Body Fluid Mononuclear WBCs (%) 96.4 % [facility] Work Phone: Body Fluid Pathologist Comment Reviewed [facility] Work Phone: Comment on above: Previous reported re sult: May follow Edited by: JOSE on 07/19/21:1348Negative for malignant cells.Fabrizio Watson M.D. 07/19/21 AMENDED REPORT 07/19/21 1348 PATH COMM/BF previously reported as: May follow Body Fluid Polynuclear WBCs (#) 0.065 10^3/uL [facility] Work Phone: Body Fluid Polynuclear WBCs (%) 3.6 % [facility] Work Phone: Serum or plasma albumin/glob ulin mass ratioon 07-16-2021 Albumin/Globulin [Mass ratio] 0.6 {ratio} 0.9-2.4 [facility] Work Phone: Specimen source identificati on of body fluidon 07-16-2021 Specimen source Nom (Body fld) THORACENTESIS [facility] Work Phone: [phone] Thin prep Papanicolaou smear with manual screeningon 07-16-2021 Thin prep Papanicolaou smear with manual screening 6 % [facility] Work Phone: [phone] Thin prep Papanicolaou smear with manual screening 922 U/L 84-246 [facility] Work Phone: [phone] Total cell counton 2 Cells counted Molgen (Bld/Tiss) [#] 2.040 10^3/ul [facility] Work Phone: [phone] Comment on above: This is the Total Nu mber of Nucleated Cell Types in the Body Fluid. Basophil percentageon 2021 Basophil percentage Not Reportable [facility] Work Phone: [phone] Basophil percentage 3.0 mg/dL 2.5-4.9 [facility] Work Phone: [phone] Bilirubin [Mass/Vol] 0.80 mg/dL 0.20-1.00 [facility] Work Phone: [phone] Comment on above: For patients on eltr ombopag therapy, use of Dimension [place] TBIL is not recommended. Laboratory - Chemistry and C hemistry - challengeon 07-15-2021 ALP [Catalytic activity/Vol] 93 U/L 45-117 [facility] Work Phone: ALT [Catalytic activity/Vol] 73 U/L 13-56 [facility] Work Phone: [phone] No Panel Informationon 07-15 Anti-Nuclear Antibody Screen Negative Negative [facility] Work Phone: [phone] Comment on above: Performed at: [address] [id number] Director: Rob Read PhD, Phone: [phone] Centromere B Antibody Not Reportable [facility] Work Phone: AUTOMATION DRIVER Antibody Not Reportable [facility] Work Phone: Thyroid Stimulating Hormone (TSH) 0.54 uIU/mL 0.358-3.74 [facility] Work Phone: Serum DNA double strand anti body assay (units/volume)on 07-15-2021 DNA double strand Ab Qn (S) Not Reportable [facility] Work Phone: Serum Gina-1 antibody assay (u nits/volume)on 07-15-2021 Gina-1 extractable nuclear Ab Qn (S) Not Reportable [facility] Work Phone: Serum Scl-70 extractable nuc lear antibody assay (units/volume)on 07-15-2021 SCL-70 extractable nuclear Ab Qn (S) Not Reportable [facility] Work Phone: Serum [place] extractable nucl ear antibody detectionon 07-15-2021 [place] extractable nuclear Ab Ql (S) Not Reportable [facility] Work Phone: Serum cyclic citrullinated p eptide IgG antibody assay (units/volume)on 07-15-2021 Cyclic citrullinated peptide IgG Qn 25 units [facility] Work Phone: Comment on above: Negative <20 Weak po sitive 20 - 39 Moderate positive 40 - 59 Strong positive >59Performed at: - [facility] [id number] Director: Vianca Mayers MD, Phone: [phone] Serum or plasma albumin mahnaz urement (mass/volume)on 07-15-2021 Albumin [Mass/Vol] 2.5 g/dL 3.2-5.0 [facility] Work Phone: Serum rheumatoid factor dete ctionon 07-15-2021 Rheumatoid factor Ql (S) < 10.0 IU/mL <15 [facility] Work Phone: Thin prep Papanicolaou smear with manual screeningon 07-15-2021 Thin prep Papanicolaou smear with manual screening 94 U/L 15-37 [facility] Work Phone: Basophil percentageon 2021 Basophil percentage 0-5 SEEN /hpf [facility] Work Phone: Lactate [Moles/Vol] 1.2 mmol/L 0.4-2.0 [facility] Work Phone: Bilirubin Test strip Ql (U)o n 07-14-2021 Bilirubin Ql (U) Negative Negative [facility] Work Phone: [phone] Ketones Test strip Ql (U)on 07-14-2021 Ketones Ql (U) 5 mg/dl Negative [facility] Work Phone: Laboratory - Chemistry and C hemistry - challengeon 07-14-2021 Lipase [Catalytic activity/Vol] 74 U/L 73-393 [facility] Work Phone: Natriuretic peptide B (Bld) [Mass/Vol] 548.1 pg/mL 0-100 [facility] Work Phone: Laboratory - Microbiology an d Antimicrobial susceptibilityon 07-14-2021 Bacteria identified Cx Nom (Bld) No growth in 5 days. [facility] Work Phone: SARS-CoV-2 (COVID-19) RNA KASHIF+probe Ql (Unsp spec) Not detected Not Detect [facility] Work Phone: Comment on above: Normal Reference Ran ge: Not DetectedMethod:(RT-PCR) real-time reverse transcriptase PCRLuminex SURENDRA Instrument*The Food and Drug Administration (FDA) has issued an Emergency Use Authorization (EAU) for the SURENDRA SARS-CoV-2 Assay for the rapid detection of the virus that causes COVID-19. This test has been validated, but the FDAs independent review of this validation is pending.*Negative results do not preclude infection and should not be used as the sole basis for treatment or patient management. Optimum specimen types and timing for peak viral levels during infections caused by SARS-CoV-2 have not been determined. Collection of multiple specimens from the same patient may be necessary to detect the virus. The possibility of a false negative result should be considered if the patient has clinical presentation or has had recent exposure. Mucus LM Ql (Urine sed)on Mucus Ql (Urine sed) 0 SEEN /hpf [facility] Work Phone: Nitrite Test strip Ql (U)on 07-14-2021 Nitrite Ql (U) Negative Negative [facility] Work Phone: No Panel Informationon 07-14 Streptococcus pneumoniae Antigen (M [facility] Work Phone: Troponin I High Sensitivity 7 pg/mL 3.0-54.0 [facility] Work Phone: Comment on above: Please Note: [place] t Units and Gender Specific Reference Ranges. For more information see Policy Stat Procedure [place] High Sensitivity Troponin (TNIH) and attachments. Protein Test strip Ql (U)on 07-14-2021 Protein Ql (U) 100 mg/dl Negative [facility] Work Phone: Squamous epithelial cells de tection in urine sediment by light microscopyon 07-14-2021 Epithelial cells.squamous LM Ql (Urine sed) 5-10 SEEN /hpf [facility] Work Phone: Urine blood detectionon - RBC Ql (U) 250 /ul Negative [facility] Work Phone: RBC Ql (U) 0-5 SEEN /hpf [facility] Work Phone: Urine clarityon 07-14-2021 Clarity (U) Sl. Cloudy Clear [facility] Work Phone: Urine color determinationon 07-14-2021 Color (U) Deena Yellow [facility] Work Phone: Urine glucose detectionon Glucose Ql (U) Normal mg/dl Normal [facility] Work Phone: Urine leukocyte esterase det ection by dipstickon 07-14-2021 Leukocyte esterase Test strip Ql (U) 25 /ul Negative [facility] Work Phone: Urine pHon 07-14-2021 pH (U) 6.5 [pH] [facility] Work Phone: [phone] Urine sediment bacteria coun t by microscopy (number/high power field)on 07-14-2021 Bacteria LM.HPF (Urine sed) [#/Area] RARE /hpf None Seen [facility] Work Phone: Urine specific gravity measu rementon 07-14-2021 Specific gravity (U) [Rel density] 1.010 [facility] Work Phone: Urobilinogen Auto test strip Ql (U)on 07-14-2021 Urobilinogen Ql (U) 4 mg[facility]dl [facility]: Absolute lymphocyte counton 07-09-2021 Lymphocytes Auto (Unsp spec) [#/Vol] 1.87 10*3/uL 0.83-4.51 [facility] Work Phone: Basophil percentageon 2021 Basophils/100 WBC (Bld) 0.7 % 0-1 [facility] Work Phone: Chloride [Moles/Vol] 102 mmol/L 98-107 [facility] Work Phone: Eosinophils/100 WBC (Bld) 3.6 % 0-5 [facility] Work Phone: Glucose [Mass/Vol] 94 mg/dL 74-106 [facility] Work Phone: Neutrophils (Bld) [#/Vol] 5.0 10*3/uL 2.0-7.7 [facility] Work Phone: Neutrophils/100 WBC (Bld) 59.5 % 47-70 [facility] Work Phone: Potassium [Moles/Vol] 3.8 mmol/L 3.5-5.1 [facility] Sodium [Moles/Vol] 137 mmol/L 136-145 [facility] Work Phone: WBC (Bld) [#/Vol] 8.4 10*3/uL 4.4-11.0 [facility] Work Phone: Blood erythrocytes count (nu mber/volume)on 07-09-2021 RBC (Bld) [#/Vol] 4.44 10*6/uL 4.2-5.4 [facility] Work Phone: Blood hemoglobin measurement (mass/volume)on 07-09-2021 Hemoglobin (Bld) [Mass/Vol] 12.5 g/dL 12.0-15.0 [facility] Work Phone: Blood lymphocytes/100 leukoc yteson 07-09-2021 Lymphocytes/100 WBC (Bld) 22.2 % 19-41 [facility] Work Phone: Blood monocytes/100 leukocyt eson 07-09-2021 Monocytes/100 WBC (Bld) 13.8 % 0-10 [facility] Work Phone: Blood platelet mean volumeon 07-09-2021 Platelet mean volume (Bld) [Entitic vol] 8.9 fL 6.2-12.0 [facility] Work Phone: Cytology report of Body flui d Cyto stainon 07-09-2021 Cytology report Cyto stain Doc (Body fld) SEE PATHOLOGY REPORT [facility] Work Phone: Comment on above: Specimen submitted t o Anatomical Pathology Department for testing. Determination of erythrocyte mean corpuscular volume (MCV)on 07-09-2021 MCV (RBC) [Entitic vol] 86.5 fL 81-99 [facility] Work Phone: [phone] Hematocrit Auto (Bld) [Volum e fraction]on 07-09-2021 Hematocrit (Bld) [Volume fraction] 38.4 % 37-47 [facility] Work Phone: [phone] INR in Blood by Coagulation assayon 07-09-2021 INR Coag (Bld) [Relative time] 1.1 {INR} [facility] Work Phone: Laboratory - Chemistry and C hemistry - challengeon 07-09-2021 CO2 [Moles/Vol] 29.0 mmol/L 21.0-32.0 [facility] Work Phone: Urea nitrogen/Creatinine [Mass ratio] 17.2 mg/mg 10-20 [facility] Work Phone: [phone] Laboratory - Coagulationon 0 07-09-2021 PT Coag (PPP) [Time] 14.0 s 11.7-14.9 [facility] Work Phone: [phone] Laboratory - Hematology and Cell countson 07-09-2021 Erythrocyte distribution width (RBC) [Entitic vol] 48.0 fL 35.1-43.9 [facility] Work Phone: [phone] Erythrocyte distribution width (RBC) [Ratio] 15.3 % 11.6-14.6 [facility] Work Phone: [phone] Immature granulocytes/100 WBC (Bld) 0.200 % 0.0-0.9 [facility] Work Phone: [phone] Comment on above: IG% - Immature Granu locytes (promyelocytes, myelocytes and metamyelocytes) > 1% indicates that a LEFT SHIFT is Present. MCH (RBC) [Entitic mass] 28.2 pg 27.0-32.0 [facility] Work Phone: [phone] Nucleated RBC/100 WBC (Bld) [Ratio] 0 % 0-5 [facility] Work Phone: [phone] MCHC Auto (RBC) [Mass/Vol]on 07-09-2021 MCHC (RBC) [Mass/Vol] 32.6 g/dL 32-36 [facility] Work Phone: [phone] No Panel Informationon 07-09 Estimated Creatinine Clearance Calc 36.68 ml/min [facility] Work Phone: [phone] Estimated GFR (MDRD) Amer 96 mL/min >60 [facility] Work Phone: [phone] Comment on above: GFR Calc Estimated GFR (MDRD) Non-Af Amer 79 mL/min >60 [facility] Work Phone: [phone] Comment on above: Non- GFR Calc Platelets bldon 07-09-2021 Platelets (Bld) [#/Vol] 406 10*3/uL 150-450 [facility] Work Phone: Serum or plasma calcium mahnaz urement (mass/volume)on 07-09-2021 Calcium [Mass/Vol] 8.7 mg/dL 8.5-10.1 [facility] Work Phone: Serum or plasma creatinine m easurement (mass/volume)on 07-09-2021 Creatinine [Mass/Vol] 0.75 mg/dL 0.55-1.02 [facility] Work Phone: Comment on above: The validity of the calculated GFR & GFRAA in patients over 70 years has not been determined. Clinical correlation is essential. Serum or plasma urea nitroge n measurement (mass/volume)on 07-09-2021 Urea nitrogen [Mass/Vol] 13 mg/dL 7-18 [facility] Work Phone: Thin prep Papanicolaou smear with manual screeningon 07-09-2021 Thin prep Papanicolaou smear with manual screening 6 5-15 [facility] Work Phone: Basophil percentageon 2021 Bilirubin [Mass/Vol] 0.70 mg/dL 0.20-1.00 [facility] Work Phone: Comment on above: For patients on eltr ombopag therapy, use of Dimension [place] TBIL is not recommended. Protein [Mass/Vol] 7.0 g/dL 6.4-8.2 [facility] Work Phone: Laboratory - Chemistry and C hemistry - challengeon 07-08-2021 ALP [Catalytic activity/Vol] 106 U/L 45-117 [facility] Work Phone: [phone] ALT [Catalytic activity/Vol] 14 U/L 13-56 [facility] Work Phone: [phone] Globulin (S) [Mass/Vol] 4.0 g/dL 2.2-4.2 [facility] Work Phone: [phone] Serum or plasma albumin mahnaz urement (mass/volume)on 07-08-2021 Albumin [Mass/Vol] 3.0 g/dL 3.2-5.0 [facility] Work Phone: Serum or plasma albumin/glob ulin mass ratioon 07-08-2021 Albumin/Globulin [Mass ratio] 0.8 {ratio} 0.9-2.4 [facility] Work Phone: Thin prep Papanicolaou smear with manual screeningon 07-08-2021 Thin prep Papanicolaou smear with manual screening 17 U/L 15-37 [facility] Work Phone: Direct bilirubinon Bilirubin.direct [Mass/Vol] 0.22 mg/dL 0.00-0.30 [facility] Work Phone: Laboratory - Chemistry and C hemistry - challengeon 07-07-2021 Magnesium [Mass/Vol] 2.2 mg/dL 1.6-2.6 [facility] Work Phone: Natriuretic peptide B (Bld) [Mass/Vol] 381.7 pg/mL 0-100 [facility] Work Phone: No Panel Informationon 07-07 Troponin I High Sensitivity 7 pg/mL 3.0-54.0 [facility] Work Phone: Comment on above: Please Note: [place] Units and Gender Specific Reference Ranges. For more information see Policy Stat Procedure [place] High Sensitivity Troponin (TNIH) and attachments. No Panel Informationon 07-02 Radiology Study observation (narrative) [facility] X[facility] Chest AP right lateral-de cubituson 07-02-2021 IMPRESSION: Layering right-sided pleural effusion. Signal Worker Helper: USMAN Transcribe Date/Time: Jul 02 2021 2:37P Dictated by : EARNEST DOLL MD This examination was interpreted and the report reviewed and electronically signed by: EARNEST DOLL MD on Jul 02 2021 2:38PM [facility] DIVISION OF RADIOLOGY * * *Final Report* * * DATE OF EXAM: Jul 02 2021 2:21PM WOX 5370 - XR CHEST 1V DECUBITUS RT / PROCEDURE REASON: Pleural effusion, right * * * * Physician Interpretation * * * * Single decubitus view of the chest. HISTORY: 75 years old Clinical information: Pleural effusion, right has slight cough and pleural effusion on right side TECHNIQUE: Images: XR CHEST 1V DECUBITUS RT Comparison: None. RESULT: Findings: Right-sided down decubitus view of the chest. Layering right-sided pleural effusion is noted. Left lung is clear. DIVISION OF RADIOLOGY Provider, [facility] - 07/02/2021 * * *Final Report* * * DATE OF EXAM: Jul 02 2021 2:21PM WOX 5370 - XR CHEST 1V DECUBITUS RT / PROCEDURE REASON: Pleural effusion, right * * * * Physician Interpretation * * * * Single decubitus view of the chest. HISTORY: 75 years old Clinical information: Pleural effusion, right has slight cough and pleural effusion on right side TECHNIQUE: Images: XR CHEST 1V DECUBITUS RT Comparison: None. RESULT: Findings: Right-sided down decubitus view of the chest. Layering right-sided pleural effusion is noted. Left lung is clear. IMPRESSION IMPRESSION: Layering right-sided pleural effusion. Signal Worker Helper: USMAN Transcribe Date/Time: Jul 02 2021 2:37P Dictated by : EARNEST DOLL MD This examination was interpreted and the report reviewed and electronically signed by: EARNEST DOLL MD on Jul 02 2021 2:38PM [facility] Chest PA and Lateralon IMPRESSION: Slight improvement of the right-sided pleural effusion. Stable cardiomegaly. Stable prominence of the central pulmonary vasculature. Signal Worker Helper: [facility] Transcribe Date/Time: Jul 02 2021 2:36P Dictated by : EARNEST DOLL MD This examination was interpreted and the report reviewed and electronically signed by: EARNEST DOLL MD on Jul 02 2021 2:36PM EST DIVISION OF RADIOLOGY * * *Final Report* * * DATE OF EXAM: Jul 02 2021 2:21PM WOX 5291 - XR CHEST 2V FRONTAL/LAT / PROCEDURE REASON: Pleural effusion, right * * * * Physician Interpretation * * * * EXAMINATION: CHEST RADIOGRAPH (2 VIEW FRONTAL & LATERAL) CLINICAL HISTORY: Pleural effusion, right MQ: XC2_6 EXAM DATE/TIME: 07/02/2021 2:21 PM COMPARISON: June 18, 2021 RESULT: Lines, tubes, and devices: None. Lungs and pleura: Slight improvement of the right-sided pleural effusion. Probable adjacent atelectasis. Left lung is clear. Stable prominence of the central pulmonary vasculature. No pneumothorax. Cardiomediastinal silhouette: Enlargement of the heart. Mediastinal silhouette is within normal limits. Atherosclerotic calcifications involving the aortic arch. Bones and soft tissues: Unremarkable. [facility] * * *Final Report* * * DATE OF EXAM: Jul 02 2021 2:21PM WOX 5291 - XR CHEST 2V FRONTAL/LAT / PROCEDURE REASON: Pleural effusion, right * * * * Physician Interpretation * * * * EXAMINATION: CHEST RADIOGRAPH (2 VIEW FRONTAL & LATERAL) CLINICAL HISTORY: Pleural effusion, right MQ: XC2_6 EXAM DATE/TIME: 07/02/2021 2:21 PM COMPARISON: June 18, 2021 RESULT: Lines, tubes, and devices: None. Lungs and pleura: Slight improvement of the right-sided pleural effusion. Probable adjacent atelectasis. Left lung is clear. Stable prominence of the central pulmonary vasculature. No pneumothorax. Cardiomediastinal silhouette: Enlargement of the heart. Mediastinal silhouette is within normal limits. Atherosclerotic calcifications involving the aortic arch. Bones and soft tissues: Unremarkable. IMPRESSION IMPRESSION: Slight improvement of the right-sided pleural effusion. Stable cardiomegaly. Stable prominence of the central pulmonary vasculature. Signal Worker Helper: [employer] Transcribe Date/Time: Jul 02 2021 2:36P Dictated by : EARNEST DOLL MD This examination was interpreted and the report reviewed and electronically signed by: EARNEST DOLL MD on Jul 02 2021 2:36PM EST [facility] XR Chest PA and LateralOrder ed By: [facility] Provider on 07-02-2021 [facility] Basophil percentageon 2021 Chloride [Moles/Vol] 98 mmol/L 98-[address] [facility] Work Phone: Glucose [Mass/Vol] 82 mg/dL 74-106 [facility] Work Phone: Potassium [Moles/Vol] 4.0 mmol/L 3.5-5.1 [facility] Work Phone: [phone] Sodium [Moles/Vol] 136 mmol/L 136-145 [facility] Work Phone: [phone] Body fluid appearanceon 06-05 Appearance (Body fld) TURBID [facility] Work Phone: [phone] Body fluid color determinati onon 06-22-2021 Color (Body fld) YELLOW [facility] Work Phone: [phone] Body fluid erythrocytes coun t (number/volume)on 06-22-2021 RBC (Body fld) [#/Vol] 10 10*3/uL [facility] Work Phone: [phone] Body fluid lactate dehydroge nase measurement (enzymatic activity/volume) by pyruvateon 06-22-2021 LDH Pyruvate to lactate reaction (Body fld) [Catalytic activity/Vol] 84 Units/l Not Establ. [facility] Work Phone: [phone] Body fluid leukocytes count (number/volume)on 06-22-2021 WBC (Body fld) [#/Vol] 0.655 10*3/uL [facility] Work Phone: [phone] Body fluid lymphocytes/100 l eukocyteson 06-22-2021 Lymphocytes/100 WBC (Body fld) 69 % [facility] Work Phone: [phone] Body fluid macrophage counto n 06-22-2021 Macrophages (Body fld) [#/Vol] 27 % [facility] Work Phone: [phone] Body fluid pH measurementon 06-22-2021 pH (Body fld) 7.6 [pH] Not Estab. [facility] Work Phone: [phone] Comment on above: The reference interv al(s) and other method performance specificationshave not been established for this body fluid. The test result must beintegrated into the clinical context for interpretation.Performed at: [address] [id number] Director: Vianca Mayers MD, Phone: [phone] Body fluid protein measureme nt (mass/volume)on 06-22-2021 Protein (Body fld) [Mass/Vol] 4.3 g/dL Not Establ. [facility] Work Phone: [phone] Body fluid segmented neutrop hils count (number/volume)on 06-22-2021 Segmented neutrophils (Body fld) [#/Vol] 2 % [facility] Work Phone: [phone] Cytology report of Body flui d Cyto stainon 06-22-2021 Cytology report Cyto stain Doc (Body fld) SEE PATHOLOGY REPORT [facility] Work Phone: [phone] Comment on above: Specimen submitted t o Anatomical Pathology Department for testing. INR in Blood by Coagulation assayon 06-22-2021 INR Coag (Bld) [Relative time] 1.3 {INR} [facility] Work Phone: [phone] Laboratory - Chemistry and C hemistry - challengeon 06-22-2021 CO2 [Moles/Vol] 32.0 mmol/L 21.0-32.0 [facility] Work Phone: [phone] Urea nitrogen/Creatinine [Mass ratio] 34.3 mg/mg 10-20 [facility] Work Phone: [phone] Laboratory - Coagulationon 0 06-22-2021 PT Coag (PPP) [Time] 15.8 s 11.7-14.9 [facility] Work Phone: [phone] Mononuclear cells Auto (Body fld) [#/Vol]on 06-22-2021 Mononuclear cells (Body fld) [#/Vol] 0.635 10*3/uL [facility] Work Phone: No Panel Informationon 06-22 Body Fluid Comment 2 SEE COMMENT [facility] Work Phone: [phone] Body Fluid Glucose 137 mg/dL 40-70 [facility] Work Phone: [phone] Comment on above: Slight Lipemia, Resu lt may be falsely increased. Body Fluid Mononuclear WBCs (%) 97.0 % [facility] Work Phone: Body Fluid Pathologist Comment Reviewed [facility] Work Phone: Comment on above: Previous reported re sult: May follow Edited by: RGOMARLENA on 06/23/21:1306Negative for malignant cells.Fabrizio Watson M.D. 06/23/21 AMENDED REPORT 06/23/21 1306 PATH COMM/BF previously reported as: May follow Body Fluid Polynuclear WBCs (#) 0.020 10^3/uL [facility] Work Phone: Body Fluid Polynuclear WBCs (%) 3.0 % [facility] Work Phone: Estimated Creatinine Clearance Calc 36.68 ml/min [facility] Work Phone: Estimated GFR (MDRD) Amer 122 mL/min >60 [facility] Work Phone: Comment on above: GFR Calc Estimated GFR (MDRD) Non-Af Amer 101 mL/min >60 [facility] Work Phone: Comment on above: Non- GFR Calc Serum or plasma calcium mahnaz urement (mass/volume)on 06-22-2021 Calcium [Mass/Vol] 8.7 mg/dL 8.5-10.1 [facility] Work Phone: Serum or plasma creatinine m easurement (mass/volume)on 06-22-2021 Creatinine [Mass/Vol] 0.61 mg/dL 0.55-1.02 [facility] Work Phone: Comment on above: The validity of the calculated GFR & GFRAA in patients over 70 years has not been determined. Clinical correlation is essential. Serum or plasma urea nitroge n measurement (mass/volume)on 06-22-2021 Urea nitrogen [Mass/Vol] 21 mg/dL 12-20 [facility] Work Phone: Specimen source identificati on of body fluidon 06-22-2021 Specimen source Nom (Body fld) THORACENTESIS [facility] Work Phone: [phone] Thin prep Papanicolaou smear with manual screeningon 06-22-2021 Thin prep Papanicolaou smear with manual screening 2 % [facility] Work Phone: Thin prep Papanicolaou smear with manual screening 6 5-15 [facility] Work Phone: [phone] Total cell counton 2 Cells counted Molgen (Bld/Tiss) [#] 0.786 10^3/ul [facility] Work Phone: Comment on above: This is the Total Nu mber of Nucleated Cell Types in the Body Fluid. Basophil percentageon 2021 Protein [Mass/Vol] 7.4 g/dL 6.4-8.2 [facility] Work Phone: Laboratory - Chemistry and C hemistry - challengeon 06-21-2021 Globulin (S) [Mass/Vol] 4.3 g/dL 2.2-4.2 [facility] Work Phone: Serum or plasma albumin/glob ulin mass ratioon 06-21-2021 Albumin/Globulin [Mass ratio] 0.7 {ratio} 0.9-2.4 [facility] Work Phone: Thin prep Papanicolaou smear with manual screeningon 06-21-2021 Thin prep Papanicolaou smear with manual screening 171 U/L 84-246 [facility] Work Phone: Absolute lymphocyte counton 06-19-2021 Lymphocytes Auto (Unsp spec) [#/Vol] 1.84 10*3/uL 0.83-4.51 [facility] Work Phone: Basophil percentageon 2021 Basophils/100 WBC (Bld) 0.8 % 0-1 [facility] Work Phone: Bilirubin [Mass/Vol] 0.50 mg/dL 0.20-1.00 [facility] Work Phone: Comment on above: For patients on eltr ombopag therapy, use of Dimension [place] TBIL is not recommended. Eosinophils/100 WBC (Bld) 1.5 % 0-5 [facility] Work Phone: Neutrophils (Bld) [#/Vol] 5.6 10*3/uL 2.0-7.7 [facility] Work Phone: Neutrophils/100 WBC (Bld) 63.7 % 47-70 [facility] Work Phone: WBC (Bld) [#/Vol] 8.7 10*3/uL 4.4-11.0 [facility] Work Phone: Blood erythrocytes count (nu mber/volume)on 06-19-2021 RBC (Bld) [#/Vol] 4.44 10*6/uL 4.2-5.4 [facility] Work Phone: Blood hemoglobin measurement (mass/volume)on 06-19-2021 Hemoglobin (Bld) [Mass/Vol] 12.2 g/dL 12.0-15.0 [facility] Work Phone: [phone] Blood lymphocytes/100 leukoc yteson 06-19-2021 Lymphocytes/100 WBC (Bld) 21.1 % 19-41 [facility] Work Phone: [phone] Blood monocytes/100 leukocyt eson 06-19-2021 Monocytes/100 WBC (Bld) 12.7 % 0-10 [facility] Work Phone: Blood platelet mean volumeon 06-19-2021 Platelet mean volume (Bld) [Entitic vol] 8.9 fL 6.2-12.0 [facility] Work Phone: [phone] Determination of erythrocyte mean corpuscular volume (MCV)on 06-19-2021 MCV (RBC) [Entitic vol] 85.8 fL 81-99 [facility] Work Phone: Hematocrit Auto (Bld) [Volum e fraction]on 06-19-2021 Hematocrit (Bld) [Volume fraction] 38.1 % 37-47 [facility] Work Phone: Laboratory - Chemistry and C hemistry - challengeon 06-19-2021 ALP [Catalytic activity/Vol] 118 U/L 45-117 [facility] Work Phone: [phone] ALT [Catalytic activity/Vol] 22 U/L 13-56 [facility] Work Phone: [phone] Laboratory - Hematology and Cell countson 06-19-2021 Erythrocyte distribution width (RBC) [Entitic vol] 45.7 fL 35.1-43.9 [facility] Work Phone: [phone] Erythrocyte distribution width (RBC) [Ratio] 14.5 % 11.6-14.6 [facility] Work Phone: [phone] Immature granulocytes/100 WBC (Bld) 0.200 % 0.0-0.9 [facility] Work Phone: [phone] Comment on above: IG% - Immature Granu locytes (promyelocytes, myelocytes and metamyelocytes) > 1% indicates that a LEFT SHIFT is Present. MCH (RBC) [Entitic mass] 27.5 pg 27.0-32.0 [facility] Work Phone: [phone] Nucleated RBC/100 WBC (Bld) [Ratio] 0 % 0-5 [facility] Work Phone: [phone] MCHC Auto (RBC) [Mass/Vol]on 06-19-2021 MCHC (RBC) [Mass/Vol] 32.0 g/dL 32-36 [facility] Work Phone: [phone] No Panel Informationon 06-19 Streptococcus pneumoniae Antigen (M [facility] Work Phone: [phone] Thyroid Stimulating Hormone (TSH) 1.50 uIU/mL 0.358-3.74 [facility] Work Phone: [phone] Troponin I High Sensitivity 6 pg/mL 3.0-54.0 [facility] Work Phone: [phone] Comment on above: Please Note: [place] t Units and Gender Specific Reference Ranges. For more information see Policy Stat Procedure [place] High Sensitivity Troponin (TNIH) and attachments. Platelets bldon 06-19-2021 Platelets (Bld) [#/Vol] 337 10*3/uL 150-450 [facility] Work Phone: [phone] Serum or plasma albumin mahnaz urement (mass/volume)on 06-19-2021 Albumin [Mass/Vol] 3.4 g/dL 3.2-5.0 [facility] Work Phone: Thin prep Papanicolaou smear with manual screeningon 06-19-2021 Thin prep Papanicolaou smear with manual screening 13 U/L 15-37 [facility] Work Phone: Laboratory - Chemistry and C hemistry - challengeon 06-18-2021 Magnesium [Mass/Vol] 2.3 mg/dL 1.6-2.6 [facility] Work Phone: Natriuretic peptide B (Bld) [Mass/Vol] 329.1 pg/mL 0-100 [facility] Work Phone: No Panel Informationon 06-18 SARS-CoV-2 Antigen (Rapid) [facility] Work Phone: XR Chest PA and Lateralon IMPRESSION: Stable right pleural effusion Signal Worker Helper: USMAN Transcribe Date/Time: Jun 18 2021 1:55P Dictated by : SANTI LÓPEZ MD This examination was interpreted and the report reviewed and electronically signed by: SANTI LÓPEZ MD on Jun 18 2021 1:57PM [facility] DIVISION OF RADIOLOGY * * *Final Report* * * DATE OF EXAM: Jun 18 2021 1:54PM WOX 5291 - XR CHEST 2V FRONTAL/LAT / PROCEDURE REASON: Dyspnea, unspecified type * * * * Physician Interpretation * * * * EXAMINATION: CHEST RADIOGRAPH (2 VIEW FRONTAL & LATERAL) CLINICAL HISTORY: Dyspnea, unspecified type MQ: XC2_6 EXAM DATE/TIME: 06/18/2021 1:54 PM COMPARISON: 05/13/2021 RESULT: Lines, tubes, and devices: None. Lungs and pleura: Moderate-sized right pleural effusion, not significantly changed. No left pleural effusion. No pneumothorax. Left lung is clear. Cardiomediastinal silhouette: Incompletely visualized, but no acute abnormality seen. Bones and soft tissues: Unremarkable. DIVISION OF RADIOLOGY Provider, Mauricio Mensah - 06/18/2021 * * *Final Report* * * DATE OF EXAM: Jun 18 2021 1:54PM WOX 5291 - XR CHEST 2V FRONTAL/LAT / PROCEDURE REASON: Dyspnea, unspecified type * * * * Physician Interpretation * * * * EXAMINATION: CHEST RADIOGRAPH (2 VIEW FRONTAL & LATERAL) CLINICAL HISTORY: Dyspnea, unspecified type MQ: XC2_6 EXAM DATE/TIME: 06/18/2021 1:54 PM COMPARISON: 05/13/2021 RESULT: Lines, tubes, and devices: None. Lungs and pleura: Moderate-sized right pleural effusion, not significantly changed. No left pleural effusion. No pneumothorax. Left lung is clear. Cardiomediastinal silhouette: Incompletely visualized, but no acute abnormality seen. Bones and soft tissues: Unremarkable. IMPRESSION IMPRESSION: Stable right pleural effusion Signal Worker Helper: [employer] Transcribe Date/Time: Jun 18 2021 1:55P Dictated by : SANTI LÓPEZ MD This examination was interpreted and the report reviewed and electronically signed by: SANTI LÓPEZ MD on Jun 18 2021 1:57PM EST [facility] Radiology Study observation (narrative) [facility] XR Chest PA and LateralOrder ed By: [facility] Provider on 06-18-2021 [facility] Basophil percentageon 2020 Chloride [Moles/Vol] 103 mmol/L 98-107 [facility] Work Phone: Glucose [Mass/Vol] 130 mg/dL 74-106 [facility] Work Phone: Comment on above: Fasting Glucose resu lt greater than or equal to 126 mg/dL suggests DIABETES MELLITUS per A.D.A. criteria.Please note revised GLUCOSE reference range effective 2017. Potassium [Moles/Vol] 3.8 mmol/L 3.5-5.1 [facility] Work Phone: Sodium [Moles/Vol] 138 mmol/L 136-145 [facility] Work Phone: Laboratory - Chemistry and C hemistry - challengeon 05-14-2021 CO2 [Moles/Vol] 30.0 mmol/L 21.0-32.0 [facility] Work Phone: Natriuretic peptide B (Bld) [Mass/Vol] 437.1 pg/mL 0-100 [facility] Work Phone: Urea nitrogen/Creatinine [Mass ratio] 13.5 mg/mg 10-20 [facility] Work Phone: No Panel Informationon 05-14 Estimated GFR (MDRD) Amer 88 mL/min >60 [facility] Work Phone: Comment on above: GFR Calc Estimated GFR (MDRD) Non-Af Amer 73 mL/min >60 [facility] Work Phone: Comment on above: Non- GFR Calc Serum or plasma calcium mahnaz urement (mass/volume)on 05-14-2021 Calcium [Mass/Vol] 8.8 mg/dL 8.5-10.1 [facility] Work Phone: Serum or plasma creatinine m easurement (mass/volume)on 05-14-2021 Creatinine [Mass/Vol] 0.82 mg/dL 0.55-1.02 [facility] Work Phone: Comment on above: The validity of the calculated GFR & GFRAA in patients over 70 years has not been determined. Clinical correlation is essential. Serum or plasma urea nitroge n measurement (mass/volume)on 05-14-2021 Urea nitrogen [Mass/Vol] 11 mg/dL 7-18 [facility] Work Phone: Thin prep Papanicolaou smear with manual screeningon 05-14-2021 Thin prep Papanicolaou smear with manual screening 5 5-15 [facility] Work Phone: XR Chest PA and Lateralon IMPRESSION: Moderate to large RIGHT pleural effusion increased in size from prior study. Signal Worker Helper: PSCB Transcribe Date/Time: May 04 2020 3:38P Dictated by : JOELEN GASTON MD This examination was interpreted and the report reviewed and electronically signed by: JOLEEN GASTON MD on May 04 2020 3:42PM [facility] DIVISION OF RADIOLOGY * * *Final Report* * * DATE OF EXAM: May 04 2020 3:35PM WOX [id number] - XR CHEST 2V FRONTAL/LAT / PROCEDURE REASON: Cough * * * * Physician Interpretation * * * * EXAMINATION: CHEST RADIOGRAPH (2 VIEW FRONTAL & LATERAL) CLINICAL HISTORY: Cough MQ: XC2_6 EXAM DATE/TIME: 05/04/2020 3:35 PM COMPARISON: Chest x-ray 07/09/2019 and 11/18/2019 RESULT: Lines, tubes, and devices: None. Lungs and pleura: Moderate to large RIGHT pleural effusion increased in size from prior study. No LEFT pleural effusion. No vascular redistribution. Cardiomediastinal silhouette: Stable cardiomediastinal silhouette. Mitral annular calcification. Bones and soft tissues: Unremarkable. DIVISION OF RADIOLOGY Provider, [facility] - 05/04/2020 * * *Final Report* * * DATE OF EXAM: May 04 2020 3:35PM WOX 5291 - XR CHEST 2V FRONTAL/LAT / PROCEDURE REASON: Cough * * * * Physician Interpretation * * * * EXAMINATION: CHEST RADIOGRAPH (2 VIEW FRONTAL & LATERAL) CLINICAL HISTORY: Cough MQ: XC2_6 EXAM DATE/TIME: 05/04/2020 3:35 PM COMPARISON: Chest x-ray 07/09/2019 and 11/18/2019 RESULT: Lines, tubes, and devices: None. Lungs and pleura: Moderate to large RIGHT pleural effusion increased in size from prior study. No LEFT pleural effusion. No vascular redistribution. Cardiomediastinal silhouette: Stable cardiomediastinal silhouette. Mitral annular calcification. Bones and soft tissues: Unremarkable. IMPRESSION IMPRESSION: Moderate to large RIGHT pleural effusion increased in size from prior study. Signal Worker Helper: PSCB Transcribe Date/Time: May 04 2020 3:38P Dictated by : JOLEEN GASTON MD This examination was interpreted and the report reviewed and electronically signed by: JOLEEN GASTON MD on May 04 2020 3:42PM EST [facility] Radiology Study observation (narrative) [facility] Chest PA and LateralOrder ed By: [facility] Provider on 05-04-2020 [facility] Anaerobic culture Bacteria identified Anaer cx Nom (Unsp spec) No growth in 5 days. [facility] Work Phone: Bacterial body fluid culture Bacteria identified Cx Nom (Body fld) No growth aerobically. [facility] Work Phone: Culture, urine Bacteria identified Cx Nom (U) Culture exhibits no growth. [facility] Work Phone: Gram stain for investigation of transfusion reaction Microscopic observation Gram stain Nom (Unsp spec) [facility] Work Phone: Laboratory - Microbiology an d Antimicrobial susceptibility Bacteria identified Cx Nom (Bld) Pasteurella multocida [facility] Work Phone: [phone] Bacteria identified Cx Nom (Bld) Negative [facility] Work Phone: [phone] Respiratory pathogens DNA and RNA 12b panel KASHIF+probe (Unsp spec) [facility] Work Phone: [phone] No Panel Information Respiratory Panel (PCR) [facility] Work Phone: Vital Signs Date Time Vital Sign Value Performing Clinician Facility 03-04-2025 07:58-0400 Body height 152.[address] Christopher Bonilla MD Work Phone: 8(800)674-411285 [place] [address] 03-04-2025 07:58-0400 Body mass index (BMI) [Ratio] 24.2 kg/m2 Dr. Christopher Bonilla MD Work Phone: 4(436)649-128285 [place] [address] 03-04-2025 07:58-0400 Body weight 56.[address] Christopher Bonilla MD Work Phone: [facility] 03-04-2025 07:58-0400 Diastolic blood pressure 84 mm[Hg] Dr. Christopher Bonilla MD Work Phone: 5(457)167-097285 [place] [address] 03-04-2025 07:58-0400 Heart rate 105 /min Dr. Christopher Bonilla MD Work Phone: [facility] 03-04-2025 07:58-0400 Respiratory rate 18 /min Dr. Christopher Bonilla MD Work Phone: [facility] 03-04-2025 07:58-0400 SaO2% (BldA) [Mass fraction] 95 % Dr. Christopher Bonilla MD Work Phone: [facility] 03-04-2025 07:58-0400 Systolic blood pressure 121 mm[Hg] Dr. Christopher Bonilla MD Work Phone: [facility] 02-05-2025 14:09-0400 Body mass index (BMI) [Ratio] 23.5 kg/m2 Dalila Jensen CHIPPER MACHINE OPERATOR.EXTERNAL GRINDER TOOL Work Phone: [facility] 02-05-2025 14:09-0400 Body weight 52.16 kg Dalila Jensen CHIPPER MACHINE OPERATOR.EXTERNAL GRINDER TOOL Work Phone: [facility] 02-05-2025 14:09-0400 Diastolic blood pressure 72 mm[Hg] Dalila Jensen CHIPPER MACHINE OPERATOR.EXTERNAL GRINDER TOOL Work Phone: [facility] 02-05-2025 14:09-0400 Heart rate 109 /min Dalila Jensen CHIPPER MACHINE OPERATOR.EXTERNAL GRINDER TOOL Work Phone: [facility] 02-05-2025 14:09-0400 SaO2% (BldA) [Mass fraction] 96 % Dalila Jensen CHIPPER MACHINE OPERATOR.EXTERNAL GRINDER TOOL Work Phone: [facility] 02-05-2025 14:09-0400 Systolic blood pressure 118 mm[Hg] Dalila Jensen CHIPPER MACHINE OPERATOR.EXTERNAL GRINDER TOOL Work Phone: [facility] 01-25-2025 13:42-0400 Body temperature 98 [degF] Dr. Christopher Bonilla MD Work Phone: [facility] 01-25-2025 13:42-0400 Diastolic blood pressure 77 mm[Hg] Dr. Christopher Bonilla MD Work Phone: [facility] 01-25-2025 13:42-0400 Heart rate 99 /min Dr. Christopher Bonilla MD Work Phone: [facility] 01-25-2025 13:42-0400 Respiratory rate 18 /min Dr. Christopher Bonilla MD Work Phone: [facility] 01-25-2025 13:42-0400 SaO2% (BldA) [Mass fraction] 98 % Dr. Christopher Bonilla MD Work Phone: [facility] 01-25-2025 13:42-0400 Systolic blood pressure 122 mm[Hg] Dr. Christopher Bonilla MD Work Phone: 2(809)206-362330 [place] [address] 01-25-2025 09:04-0400 Heart rate 66 /min Dr. Christopher Bonilla MD Work Phone: 2(435)861-233130 [place] [address] 01-25-2025 09:03-0400 Body temperature 98.4 [degF] Dr. Christopher Bonilla MD Work Phone: 6(788)182-049830 [place] [address] 01-25-2025 09:03-0400 Diastolic blood pressure 71 mm[Hg] Dr. Christopher Bonilla MD Work Phone: 9(225)982-784630 [place] [address] 01-25-2025 09:03-0400 Respiratory rate 18 /min Dr. Christopher Bonilla MD Work Phone: 3(389)174-238330 [place] [address] 01-25-2025 09:03-0400 SaO2% (BldA) [Mass fraction] 94 % Dr. Christopher Bonilla MD Work Phone: 7(716)152-177730 [place] [address] 01-25-2025 09:03-0400 Systolic blood pressure 114 mm[Hg] Dr. Christopher Bonilla MD Work Phone: 8(943)775-500130 [place] [address] 01-25-2025 07:45-0400 Inhaled oxygen flow rate 1 L/min Dr. Christopher Bonilla MD Work Phone: 7(876)673-583330 [place] [address] 01-23-2025 11:24-0400 Body height 152.[address] Christopher Bonilla MD Work Phone: 5(938)063-292430 [place] [address] 01-23-2025 11:24-0400 Body weight 52.[address] Christopher Bonilla MD Work Phone: 9(012)611-833630 [place] [address] 01-22-2025 17:46-0400 Body mass index (BMI) [Ratio] 22.7 kg/m2 Dr. Christopher Bonilla MD Work Phone: 7(453)131-213530 [place] [address] 01-22-2025 17:22-0400 Body temperature 99.6 [degF] Dr. Christopher Bonilla MD Work Phone: 3(378)199-970430 [place] [address] 01-22-2025 17:22-0400 Diastolic blood pressure 65 mm[Hg] Dr. Christopher Bonilla MD Work Phone: 6(764)966-592230 [place] [address] 01-22-2025 17:22-0400 Heart rate 65 /min Dr. Christopher Bonilla MD Work Phone: 2(604)522-481030 [place] [address] 01-22-2025 17:22-0400 Respiratory rate 20 /min Dr. Christopher Bonilla MD Work Phone: 9(788)180-446130 [place] [address] 01-22-2025 17:22-0400 SaO2% (BldA) [Mass fraction] 94 % Dr. Christopher Bonilla MD Work Phone: 1(169)094-379730 [place] [address] 01-22-2025 17:22-0400 Systolic blood pressure 123 mm[Hg] Dr. Christopher Bonilla MD Work Phone: 2(390)684-045530 [place] [address] 01-22-2025 17:16-0400 Inhaled oxygen flow rate 2 L/min Dr. Christopher Bonilla MD Work Phone: 1(816)483-116530 [place] [address] 01-22-2025 13:21-0400 Body height 154.[address] Christopher Bonilla MD Work Phone: 5(052)428-413430 [place] [address] 01-22-2025 13:21-0400 Body mass index (BMI) [Ratio] 22.4 kg/m2 Dr. Christopher Bonilla MD Work Phone: 2(509)269-576130 [place] [address] 01-22-2025 13:21-0400 Body weight 53.[address] Christopher Bonilla MD Work Phone: 0(553)838-456630 [place] [address] 01-02-2025 14:33-0400 Body temperature 98.8 [degF] Dr. Christopher Bonilla MD Work Phone: 0(448)565-700030 [place] [address] 01-02-2025 14:33-0400 Diastolic blood pressure 66 mm[Hg] Dr. Christopher Bonilla MD Work Phone: 8(632)394-712130 [place] [address] 01-02-2025 14:33-0400 Heart rate 69 /min Dr. Christopher Bonilla MD Work Phone: 8(754)997-175130 [place] [address] 01-02-2025 14:33-0400 Respiratory rate 18 /min Dr. Christopher Bonilla MD Work Phone: [facility] 01-02-2025 14:33-0400 SaO2% (BldA) [Mass fraction] 91 % Dr. Christopher Bonilla MD Work Phone: [facility] 01-02-2025 14:33-0400 Systolic blood pressure 168 mm[Hg] Dr. Christopher Bonilla MD Work Phone: 9(452)855-921830 [place] [address] 01-02-2025 11:00-0400 Body height 154.[address] Christopher Bonilla MD Work Phone: 4(651)632-846730 [place] [address] 01-02-2025 11:00-0400 Body mass index (BMI) [Ratio] 23.5 kg/m2 Dr. Christopher Bonilla MD Work Phone: 9(059)752-212185 [place] [address] 01-02-2025 11:00-0400 Body weight 56.[address] Christopher Bonilla MD Work Phone: 5(177)491-393585 [place] [address] 12-13-2024 14:15-0400 Body height 149 cm Mimi Suppan CHIPPER MACHINE OPERATOR.EXTERNAL GRINDER TOOL Work Phone: [facility] 12-13-2024 14:15-0400 Body mass index (BMI) [Ratio] 24.52 kg/m2 Mimi Suppan CHIPPER MACHINE OPERATOR.EXTERNAL GRINDER TOOL Work Phone: [facility] 12-13-2024 14:15-0400 Body weight 54.43 kg Mimi Suppan CHIPPER MACHINE OPERATOR.EXTERNAL GRINDER TOOL Work Phone: [facility] 12-13-2024 14:15-0400 Diastolic blood pressure 50 mm[Hg] Mimi Suppan CHIPPER MACHINE OPERATOR.EXTERNAL GRINDER TOOL Work Phone: [facility] 12-13-2024 14:15-0400 Heart rate 55 /min Mimi Suppan CHIPPER MACHINE OPERATOR.EXTERNAL GRINDER TOOL Work Phone: [facility] 12-13-2024 14:15-0400 SaO2% (BldA) [Mass fraction] 94 % Mimi Suppan CHIPPER MACHINE OPERATOR.EXTERNAL GRINDER TOOL Work Phone: [facility] 12-13-2024 14:15-0400 Systolic blood pressure 148 mm[Hg] Mimi Encinas APRN.CNP Work Phone: [facility] 12-05-2024 15:02-0400 Body height 154.[address] Christopher Bonilla MD Work Phone: [facility] 12-05-2024 15:02-0400 Body mass index (BMI) [Ratio] 22.8 kg/m2 Dr. Christopher Bonilla MD Work Phone: [facility] 12-05-2024 15:02-0400 Body weight 54.[address] Christopher Bonilla MD Work Phone: [facility] 12-05-2024 15:02-0400 Diastolic blood pressure 63 mm[Hg] Dr. Christopher Bonilla MD Work Phone: [facility] 12-05-2024 15:02-0400 Heart rate 59 /min Dr. Christopher Bonilla MD Work Phone: [facility] 12-05-2024 15:02-0400 Respiratory rate 18 /min Dr. Christopher Bonilla MD Work Phone: [facility] 12-05-2024 15:02-0400 Systolic blood pressure 135 mm[Hg] Dr. Christopher Bonilla MD Work Phone: [facility] 05-31-2024 13:54-0500 Body mass index (BMI) [Ratio] 23.24 kg/m2 Christopher Bonilla MD Work Phone: [facility] 05-31-2024 13:54-0500 Body weight 55.79 kg Christopher Bonilla MD Work Phone: [facility] 05-31-2024 13:54-0500 Diastolic blood pressure 64 mm[Hg] Christopher Bonilla MD Work Phone: [facility] 05-31-2024 13:54-0500 Heart rate 91 /min Christopher Bonilla MD Work Phone: [facility] 05-31-2024 13:54-0500 SaO2% (BldA) [Mass fraction] 96 % Christopher Bonilla MD Work Phone: [facility] 05-31-2024 13:54-0500 Systolic blood pressure 108 mm[Hg] Christopher Bonilla MD Work Phone: [facility] 11-30-2023 13:06-0400 Body mass index (BMI) [Ratio] 23.62 kg/m2 Mimi Suppan CHIPPER MACHINE OPERATOR.SENIOR DATABASE ADMINISTRATOR Work Phone: [facility] 11-30-2023 13:06-0400 Body weight 56.7 kg Mimi Suppan CHIPPER MACHINE OPERATOR.SENIOR DATABASE ADMINISTRATOR Work Phone: [facility] 11-30-2023 13:06-0400 Diastolic blood pressure 60 mm[Hg] Mimi Suppan CHIPPER MACHINE OPERATOR.SENIOR DATABASE ADMINISTRATOR Work Phone: [facility] 11-30-2023 13:06-0400 Heart rate 54 /min Mimi Suppan CHIPPER MACHINE OPERATOR.SENIOR DATABASE ADMINISTRATOR Work Phone: [facility] 11-30-2023 13:06-0400 Respiratory rate 14 /min Mimi Suppan CHIPPER MACHINE OPERATOR.SENIOR DATABASE ADMINISTRATOR Work Phone: [facility] 11-30-2023 13:06-0400 SaO2% (BldA) [Mass fraction] 92 % Mimi Suppan CHIPPER MACHINE OPERATOR.SENIOR DATABASE ADMINISTRATOR Work Phone: [facility] 11-30-2023 13:06-0400 Systolic blood pressure 114 mm[Hg] Mimi Suppan CHIPPER MACHINE OPERATOR.SENIOR DATABASE ADMINISTRATOR Work Phone: [facility] 07-25-2023 14:09-0500 Body weight 56.7 kg Mimi Suppan CHIPPER MACHINE OPERATOR.SENIOR DATABASE ADMINISTRATOR Work Phone: [facility] 07-25-2023 14:09-0500 Diastolic blood pressure 64 mm[Hg] Mimi Suppan CHIPPER MACHINE OPERATOR.SENIOR DATABASE ADMINISTRATOR Work Phone: [facility] 07-25-2023 14:09-0500 Heart rate 57 /min Mimi Suppan CHIPPER MACHINE OPERATOR.SENIOR DATABASE ADMINISTRATOR Work Phone: [facility] 07-25-2023 14:09-0500 Respiratory rate 16 /min Mimi Suppan CHIPPER MACHINE OPERATOR.SENIOR DATABASE ADMINISTRATOR Work Phone: [facility] 07-25-2023 14:09-0500 SaO2% (BldA) [Mass fraction] 93 % Mimi Suppan CHIPPER MACHINE OPERATOR.SENIOR DATABASE ADMINISTRATOR Work Phone: [facility] 07-25-2023 14:09-0500 Systolic blood pressure 110 mm[Hg] Mimi Suppan CHIPPER MACHINE OPERATOR.SENIOR DATABASE ADMINISTRATOR Work Phone: [facility] 07-10-2023 14:43-0500 Body temperature 98.01 [degF] Mimi Suppan CHIPPER MACHINE OPERATOR.SENIOR DATABASE ADMINISTRATOR Work Phone: [facility] 07-10-2023 14:43-0500 Body weight 58.06 kg Mimi Suppan CHIPPER MACHINE OPERATOR.SENIOR DATABASE ADMINISTRATOR Work Phone: [facility] 07-10-2023 14:43-0500 Diastolic blood pressure 68 mm[Hg] Mimi Suppan CHIPPER MACHINE OPERATOR.SENIOR DATABASE ADMINISTRATOR Work Phone: [facility] 07-10-2023 14:43-0500 Heart rate 113 /min Mimi Suppan CHIPPER MACHINE OPERATOR.SENIOR DATABASE ADMINISTRATOR Work Phone: [facility] 07-10-2023 14:43-0500 Respiratory rate 24 /min Mimi Suppan CHIPPER MACHINE OPERATOR.SENIOR DATABASE ADMINISTRATOR Work Phone: [facility] 07-10-2023 14:43-0500 SaO2% (BldA) [Mass fraction] 93 % Mimi Suppan CHIPPER MACHINE OPERATOR.SENIOR DATABASE ADMINISTRATOR Work Phone: [facility] 07-10-2023 14:43-0500 Systolic blood pressure 110 mm[Hg] Mimi Suppan CHIPPER MACHINE OPERATOR.SENIOR DATABASE ADMINISTRATOR Work Phone: [facility] 06-15-2023 10:37-0500 Body height 154.[address] Christopher Bonilla Work Phone: [facility] 06-15-2023 10:37-0500 Body mass index (BMI) [Ratio] 24.5 kg/m2 Dr. Christopher Bonilla Work Phone: [facility] 06-15-2023 10:37-0500 Body temperature 97.4 [degF] Dr. Christopher Bonilla Work Phone: [facility] 06-15-2023 10:37-0500 Body weight 58.[address] Christopher Bonilla Work Phone: [facility] 06-15-2023 10:37-0500 Diastolic blood pressure 74 mm[Hg] Dr. Christopher Bonilla Work Phone: [facility] 06-15-2023 10:37-0500 Heart rate 64 /min Dr. Christopher Bonilla Work Phone: [facility] 06-15-2023 10:37-0500 Respiratory rate 17 /min Dr. Christopher Bonilla Work Phone: [facility] 06-15-2023 10:37-0500 SaO2% (BldA) [Mass fraction] 97 % Dr. Christopher Bonilla Work Phone: [facility] 06-15-2023 10:37-0500 Systolic blood pressure 104 mm[Hg] Dr. Christopher Bonilla Work Phone: [facility] 05-10-2023 13:43-0500 Diastolic blood pressure 72 mm[Hg] Christopher Bonilla MD Work Phone: [facility] 05-10-2023 13:43-0500 Systolic blood pressure 106 mm[Hg] Christopher Bonilla MD Work Phone: [facility] 05-10-2023 13:29-0500 Body height 154.9 cm Christopher Bonilla MD Work Phone: [facility] 05-10-2023 13:29-0500 Body weight 56.34 kg Christopher Bonilla MD Work Phone: [facility] 05-10-2023 13:29-0500 Heart rate 70 /min Christopher Bonilla MD Work Phone: [facility] 05-10-2023 13:29-0500 SaO2% (BldA) [Mass fraction] 94 % Christopher Bonilla MD Work Phone: [facility] 02-14-2023 11:09-0400 Body temperature 97.9 [degF] Dr. Christopher Bonilla Work Phone: [facility] 02-14-2023 11:09-0400 Diastolic blood pressure 65 mm[Hg] Dr. Christopher Bonilla Work Phone: [facility] 02-14-2023 11:09-0400 Heart rate 64 /min Dr. Christopher Bonilla Work Phone: [facility] 02-14-2023 11:09-0400 Respiratory rate 16 /min Dr. Christopher Bonilla Work Phone: [facility] 02-14-2023 11:09-0400 SaO2% (BldA) [Mass fraction] 93 % Dr. Christopher Bonilla Work Phone: [facility] 02-14-2023 11:09-0400 Systolic blood pressure 113 mm[Hg] Dr. Christopher Bonilla Work Phone: [facility] 02-14-2023 10:12-0400 Body height 154.[address] Christopher Bonilla Work Phone: [facility] 02-14-2023 10:12-0400 Body mass index (BMI) [Ratio] 24.2 kg/m2 Dr. Christopher Bonilla Work Phone: [facility] 02-14-2023 10:12-0400 Body weight 58.[address] Christopher Bonilla Work Phone: [facility] 01-13-2023 18:59-0400 Body temperature 97.5 [degF] Shanta Logan APRN.EXTERNAL GRINDER TOOL Work Phone: [facility] 01-13-2023 18:59-0400 Body weight 58.6 kg Shanta Logan APRN.EXTERNAL GRINDER TOOL Work Phone: [facility] 01-13-2023 18:59-0400 Diastolic blood pressure 71 mm[Hg] Shanta Logan APRN.EXTERNAL GRINDER TOOL Work Phone: [facility] 01-13-2023 18:59-0400 Heart rate 61 /min Shanta Logan APRN.EXTERNAL GRINDER TOOL Work Phone: [facility] 01-13-2023 18:59-0400 Respiratory rate 18 /min Shanta Logan APRN.EXTERNAL GRINDER TOOL Work Phone: [facility] 01-13-2023 18:59-0400 SaO2% (BldA) [Mass fraction] 94 % Shanta Logan APRN.EXTERNAL GRINDER TOOL Work Phone: [facility] 01-13-2023 18:59-0400 Systolic blood pressure 142 mm[Hg] Shanta Logan APRN.EXTERNAL GRINDER TOOL Work Phone: [facility] 11-29-2022 15:14-0400 Body height 154.[address] Christopher Bonilla Work Phone: [facility] 11-29-2022 15:14-0400 Body mass index (BMI) [Ratio] 24.1 kg/m2 Dr. Christopher Bonilla Work Phone: [facility] 11-29-2022 15:14-0400 Body weight 58.[address] Christopher Bonilla Work Phone: [facility] 11-29-2022 15:14-0400 Diastolic blood pressure 72 mm[Hg] Dr. Christopher Bonilla Work Phone: [facility] 11-29-2022 15:14-0400 Respiratory rate 16 /min Dr. Christopher Bonilla Work Phone: [facility] 11-29-2022 15:14-0400 Systolic blood pressure 128 mm[Hg] Dr. Christopher Bonilla Work Phone: [facility] 11-29-2022 11:14-0400 Body mass index (BMI) [Ratio] 24.1 kg/m2 Dr. Christopher Bonilla Work Phone: [facility] 11-29-2022 11:14-0400 Body temperature 98.1 [degF] Dr. Christopher Bonilla Work Phone: [facility] 11-29-2022 11:14-0400 Body weight 58.[address] Christopher Bonilla Work Phone: [facility] 11-29-2022 11:14-0400 Diastolic blood pressure 71 mm[Hg] Dr. Christopher Bonilla Work Phone: [facility] 11-29-2022 11:14-0400 Heart rate 60 /min Dr. Christopher Bonilla Work Phone: [facility] 11-29-2022 11:14-0400 Respiratory rate 16 /min Dr. Christopher Bonilla Work Phone: [facility] 11-29-2022 11:14-0400 SaO2% (BldA) [Mass fraction] 96 % Dr. Christopher Bonilla Work Phone: [facility] 11-29-2022 11:14-0400 Systolic blood pressure 117 mm[Hg] Dr. Christopher Bonilla Work Phone: [facility] 11-08-2022 15:28-0400 Body height 154.9 cm Christopher Bonilla MD Work Phone: [facility] 11-08-2022 15:28-0400 Body weight 60.33 kg Christopher Bonilla MD Work Phone: [facility] 11-08-2022 15:28-0400 Diastolic blood pressure 56 mm[Hg] Christopher Bonilla MD Work Phone: [facility] 11-08-2022 15:28-0400 Heart rate 57 /min Christopher Bonilla MD Work Phone: [facility] 11-08-2022 15:28-0400 SaO2% (BldA) [Mass fraction] 95 % Christopher Bonilla MD Work Phone: [facility] 11-08-2022 15:28-0400 Systolic blood pressure 122 mm[Hg] Christopher Bonilla MD Work Phone: [facility] 09-19-2022 14:08-0400 Body height 154.9 cm NA Mehta PA-C Work Phone: [facility] 09-19-2022 14:08-0400 Body weight 60.33 kg NA Mehta PA-C Work Phone: [facility] 09-19-2022 14:08-0400 Diastolic blood pressure 84 mm[Hg] NA Mehta PA-C Work Phone: [facility] 09-19-2022 14:08-0400 Heart rate 54 /min NA Mehta PA-C Work Phone: [facility] 09-19-2022 14:08-0400 SaO2% (BldA) [Mass fraction] 96 % NA Mehta PA-C Work Phone: [facility] 09-19-2022 14:08-0400 Systolic blood pressure 110 mm[Hg] NA Mehta PA-C Work Phone: [facility] 09-01-2022 14:45-0400 Body weight 59.88 kg Christopher Bonilla MD Work Phone: [facility] 09-01-2022 14:45-0400 Diastolic blood pressure 62 mm[Hg] Christopher Bonilla MD Work Phone: [facility] 09-01-2022 14:45-0400 Heart rate 62 /min Christopher Bonilla MD Work Phone: [facility] 09-01-2022 14:45-0400 SaO2% (BldA) [Mass fraction] 96 % Christopher Bonilla MD Work Phone: [facility] 09-01-2022 14:45-0400 Systolic blood pressure 122 mm[Hg] Crhistopher Bonilla MD Work Phone: [facility] 07-28-2022 13:46-0500 Body weight 62.14 kg Christopher Bonilla MD Work Phone: [facility] 07-28-2022 13:46-0500 Diastolic blood pressure 62 mm[Hg] Christopher Bonilla MD Work Phone: [facility] 07-28-2022 13:46-0500 Heart rate 56 /min Christopher Bonilla MD Work Phone: [facility] 07-28-2022 13:46-0500 SaO2% (BldA) [Mass fraction] 95 % Christopher Bonilla MD Work Phone: [facility] 07-28-2022 13:46-0500 Systolic blood pressure 104 mm[Hg] Christopher Bonilla MD Work Phone: [facility] 06-29-2022 15:29-0500 Body temperature 97.5 [degF] Shanta Logan APRN.EXTERNAL GRINDER TOOL Work Phone: [facility] 06-29-2022 15:29-0500 Body weight 62.23 kg Shanta Logan APRN.EXTERNAL GRINDER [employer]OL Work Phone: [facility] 06-29-2022 15:29-0500 Diastolic blood pressure 60 mm[Hg] Shanta Logan APRN.EXTERNAL GRINDER [employer]OL Work Phone: [facility] 06-29-2022 15:29-0500 Heart rate 90 /min Shanta Logan APRN.EXTERNAL GRINDER [employer]OL Work Phone: [facility] 06-29-2022 15:29-0500 Respiratory rate 21 /min Shanta Logan APRN.EXTERNAL GRINDER TOOL Work Phone: [facility] 06-29-2022 15:29-0500 SaO2% (BldA) [Mass fraction] 94 % Shanta Logan APRN.EXTERNAL GRINDER [employer]OL Work Phone: [facility] 06-29-2022 15:29-0500 Systolic blood pressure 132 mm[Hg] Shanta Logan APRN.EXTERNAL GRINDER TOOL Work Phone: [facility] 06-27-2022 15:24-0500 Body height 154.[address] Flaquito Mariee Work Phone: [facility] 06-27-2022 15:24-0500 Body mass index (BMI) [Ratio] 26.3 kg/m2 Dr. Flaquito Mariee Work Phone: [facility] 06-27-2022 15:24-0500 Body weight 63.[address] Flaquito Mariee Work Phone: [facility] 06-27-2022 15:24-0500 Diastolic blood pressure 64 mm[Hg] Dr. Flaquito Mariee Work Phone: [facility] 06-27-2022 15:24-0500 Heart rate 58 /min Dr. Flaquito Mariee Work Phone: [facility] 06-27-2022 15:24-0500 Respiratory rate 18 /min Dr. Flaquito Mariee Work Phone: [facility] 06-27-2022 15:24-0500 SaO2% (BldA) [Mass fraction] 94 % Dr. Flaquito Mariee Work Phone: [facility] 06-27-2022 15:24-0500 Systolic blood pressure 119 mm[Hg] Dr. lFaquito Mariee Work Phone: [facility] 06-20-2022 13:53-0500 Body mass index (BMI) [Ratio] 25.3 kg/m2 Dr. Flaquito Mariee Work Phone: [facility] 06-20-2022 13:53-0500 Body weight 60.[address] Falquito Mariee Work Phone: [facility] 06-20-2022 13:53-0500 Diastolic blood pressure 75 mm[Hg] Dr. Flaquito Mariee Work Phone: [facility] 06-20-2022 13:53-0500 Respiratory rate 18 /min Dr. Flaquito Mariee Work Phone: [facility] 06-20-2022 13:53-0500 Systolic blood pressure 123 mm[Hg] Dr. Flaquito Mariee Work Phone: [facility] 05-23-2022 09:57-0500 Body mass index (BMI) [Ratio] 25.4 kg/m2 Dr. Flaquito Mariee Work Phone: [facility] 05-23-2022 09:57-0500 Body temperature 98.2 [degF] Dr. Flaquito Mariee Work Phone: [facility] 05-23-2022 09:57-0500 Body weight 61.[address] Flaquito Mariee Work Phone: [facility] 05-23-2022 09:57-0500 Diastolic blood pressure 64 mm[Hg] Dr. Flaquito Mariee Work Phone: [facility] 05-23-2022 09:57-0500 Heart rate 59 /min Dr. Flaquito Mariee Work Phone: [facility] 05-23-2022 09:57-0500 Respiratory rate 18 /min Dr. Flaquito Mariee Work Phone: [facility] 05-23-2022 09:57-0500 SaO2% (BldA) [Mass fraction] 96 % Dr. Flaquito Mariee Work Phone: [facility] 05-23-2022 09:57-0500 Systolic blood pressure 126 mm[Hg] Dr. Flaquito Mariee Work Phone: [facility] 05-17-2022 14:25-0500 Body temperature 97.81 [degF] Shannon Aram CHIPPER MACHINE OPERATOR.EXTERNAL GRINDER [employer]OL Work Phone: [facility] 05-17-2022 14:25-0500 Body weight 61.96 kg Shannon Aram CHIPPER MACHINE OPERATOR.EXTERNAL GRINDER [employer]OL Work Phone: [facility] 05-17-2022 14:25-0500 Diastolic blood pressure 82 mm[Hg] Shannon Aram CHIPPER MACHINE OPERATOR.EXTERNAL GRINDER [employer]OL Work Phone: [facility] 05-17-2022 14:25-0500 Heart rate 58 /min Shannon Aram CHIPPER MACHINE OPERATOR.EXTERNAL GRINDER [employer]OL Work Phone: [facility] 05-17-2022 14:25-0500 Respiratory rate 18 /min Shannon Aram CHIPPER MACHINE OPERATOR.EXTERNAL GRINDER TOOL Work Phone: [facility] 05-17-2022 14:25-0500 SaO2% (BldA) [Mass fraction] 94 % Shannon Aram CHIPPER MACHINE OPERATOR.EXTERNAL GRINDER TOOL Work Phone: [facility] 05-17-2022 14:25-0500 Systolic blood pressure 132 mm[Hg] Shannon Aram CHIPPER MACHINE OPERATOR.EXTERNAL GRINDER [employer]OL Work Phone: [facility] 04-19-2022 11:57-0500 Body height 154.9 cm Christopher Bonilla MD Work Phone: [facility] 04-19-2022 11:57-0500 Body weight 61.05 kg Christopher Bonilla MD Work Phone: [facility] 04-19-2022 11:57-0500 Diastolic blood pressure 56 mm[Hg] Christopher Bonilla MD Work Phone: [facility] 04-19-2022 11:57-0500 Heart rate 61 /min Christopher Bonilla MD Work Phone: [facility] 04-19-2022 11:57-0500 SaO2% (BldA) [Mass fraction] 97 % Christopher Bonilla MD Work Phone: [facility] 04-19-2022 11:57-0500 Systolic blood pressure 110 mm[Hg] Christopher Bonilla MD Work Phone: [facility] 03-15-2022 14:17-0400 Body weight 59.42 kg NA Mehta PA-C Work Phone: [facility] 03-15-2022 14:17-0400 Diastolic blood pressure 50 mm[Hg] NA Mehta PA-C Work Phone: [facility] 03-15-2022 14:17-0400 Heart rate 88 /min NA Mehta PA-C Work Phone: [facility] 03-15-2022 14:17-0400 Respiratory rate 20 /min NA Mehta PA-C Work Phone: [facility] 03-15-2022 14:17-0400 SaO2% (BldA) [Mass fraction] 98 % NA Mehta PA-C Work Phone: [facility] 03-15-2022 14:17-0400 Systolic blood pressure 108 mm[Hg] NA Mehta PA-C Work Phone: [facility] 03-02-2022 14:02-0400 Body temperature 97.7 [degF] Tia Harding RN Work Phone: [facility] 03-02-2022 14:02-0400 Body weight 58.51 kg Tia Most RN Work Phone: [facility] 03-02-2022 14:02-0400 Diastolic blood pressure 60 mm[Hg] Tia Most RN Work Phone: [facility] 03-02-2022 14:02-0400 Heart rate 56 /min Tia Most RN Work Phone: [facility] 03-02-2022 14:02-0400 Respiratory rate 16 /min Tia Most RN Work Phone: [facility] 03-02-2022 14:02-0400 SaO2% (BldA) [Mass fraction] 96 % Tia Most RN Work Phone: [facility] 03-02-2022 14:02-0400 Systolic blood pressure 118 mm[Hg] Tia Most RN Work Phone: [facility] 02-24-2022 12:28-0400 Body temperature 97.81 [degF] Tia Most RN Work Phone: [facility] 02-24-2022 12:28-0400 Body weight 58.06 kg Tia Most RN Work Phone: [facility] 02-24-2022 12:28-0400 Diastolic blood pressure 64 mm[Hg] Tia Most RN Work Phone: [facility] 02-24-2022 12:28-0400 Heart rate 64 /min Tia Most RN Work Phone: [facility] 02-24-2022 12:28-0400 Respiratory rate 16 /min Tia Most RN Work Phone: [facility] 02-24-2022 12:28-0400 SaO2% (BldA) [Mass fraction] 95 % Tia Most RN Work Phone: [facility] 02-24-2022 12:28-0400 Systolic blood pressure 118 mm[Hg] Tia Most RN Work Phone: [facility] 02-22-2022 08:29-0400 Body height 154.[address] Christopher Bonilla Work Phone: [facility] Work Phone: 02-22-2022 08:29-0400 Body mass index (BMI) [Ratio] 24 kg/m2 Dr. Christopher Bonilla Work Phone: [facility] Work Phone: 02-22-2022 08:29-0400 Body temperature 98.4 [degF] Dr. Christopher Bonilla Work Phone: [facility] Work Phone: 02-22-2022 08:29-0400 Body weight 57.[address] Christopher Bonilla Work Phone: [facility] Work Phone: 02-22-2022 08:29-0400 Diastolic blood pressure 59 mm[Hg] Dr. Christopher Bonilla Work Phone: [facility] Work Phone: 02-22-2022 08:29-0400 Heart rate 64 /min Dr. Christopher Bonilla Work Phone: [facility] Work Phone: 02-22-2022 08:29-0400 Respiratory rate 16 /min Dr. Christopher Bonilla Work Phone: [facility] Work Phone: 02-22-2022 08:29-0400 SaO2% (BldA) [Mass fraction] 95 % Dr. Christopher Bonilla Work Phone: [facility] Work Phone: 02-22-2022 08:29-0400 Systolic blood pressure 116 mm[Hg] Dr. Christopher Bonilla Work Phone: [facility] Work Phone: 02-18-2022 13:39-0400 Diastolic blood pressure 56 mm[Hg] Manju Larson PT Work Phone: [facility] 02-18-2022 13:39-0400 Heart rate 56 /min Manju Larson PT Work Phone: [facility] 02-18-2022 13:39-0400 SaO2% (BldA) [Mass fraction] 96 % Manju Larson PT Work Phone: [facility] 02-18-2022 13:39-0400 Systolic blood pressure 120 mm[Hg] Manju Larson PT Work Phone: [facility] 02-18-2022 13:15-0400 Body temperature 97.7 [degF] Manju Larson PT Work Phone: [facility] 02-18-2022 13:15-0400 Body weight 58.06 kg Manju Larson PT Work Phone: [facility] 02-18-2022 13:15-0400 Respiratory rate 16 /min Manju Larson PT Work Phone: [facility] 02-15-2022 13:35-0400 Body temperature 97.5 [degF] Tia Harding RN Work Phone: [facility] 02-15-2022 13:35-0400 Body weight 58.51 kg Gemmaalida Machado SCHOOL MANAGER Work Phone: [facility] 02-15-2022 13:35-0400 Diastolic blood pressure 52 mm[Hg] Tia Harding RN Work Phone: [facility] 02-15-2022 13:35-0400 Heart rate 60 /min Tia Harding RN Work Phone: [facility] 02-15-2022 13:35-0400 Respiratory rate 16 /min Tia Harding RN Work Phone: [facility] 02-15-2022 13:35-0400 SaO2% (BldA) [Mass fraction] 95 % Tia Harding RN Work Phone: [facility] 02-15-2022 13:35-0400 Systolic blood pressure 118 mm[Hg] Tia Harding RN Work Phone: [facility] 02-15-2022 13:10-0400 Heart rate 60 /min Gemma Carter SCHOOL MANAGER Work Phone: [facility] 02-15-2022 13:10-0400 SaO2% (BldA) [Mass fraction] 95 % Gemma Carter SCHOOL MANAGER Work Phone: [facility] 02-15-2022 13:00-0400 Body temperature 97.7 [degF] Gemma Carter SCHOOL MANAGER Work Phone: [facility] 02-15-2022 13:00-0400 Diastolic blood pressure 58 mm[Hg] Gemma Carter SCHOOL MANAGER Work Phone: [facility] 02-15-2022 13:00-0400 Respiratory rate 18 /min Gemma Carter SCHOOL MANAGER Work Phone: [facility] 02-15-2022 13:00-0400 Systolic blood pressure 110 mm[Hg] Gemma Carter SCHOOL MANAGER Work Phone: [facility] 02-14-2022 14:03-0400 Body mass index (BMI) [Ratio] 24.7 kg/m2 Dr. Christopher Bonilla Work Phone: [facility] Work Phone: 02-14-2022 14:03-0400 Body weight 59.[address] Christopher Bonilla Work Phone: [facility] Work Phone: 02-14-2022 14:03-0400 Diastolic blood pressure 58 mm[Hg] Dr. Christopher Bonilla Work Phone: [facility] Work Phone: 02-14-2022 14:03-0400 Heart rate 64 /min Dr. Christopher Bonilla Work Phone: [facility] Work Phone: 02-14-2022 14:03-0400 Respiratory rate 18 /min Dr. Christopher Bonilla Work Phone: [facility] Work Phone: 02-14-2022 14:03-0400 Systolic blood pressure 120 mm[Hg] Dr. Christopher Bonilla Work Phone: [facility] Work Phone: 02-11-2022 11:00-0400 Body weight 58.06 kg Manju Larson PT Work Phone: [facility] 02-11-2022 11:00-0400 Heart rate 60 /min Manju Larson PT Work Phone: [facility] 02-11-2022 11:00-0400 SaO2% (BldA) [Mass fraction] 88 % Manju Larson PT Work Phone: [facility] 02-11-2022 10:50-0400 Body temperature 98.2 [degF] Manju Larson PT Work Phone: [facility] 02-11-2022 10:50-0400 Diastolic blood pressure 60 mm[Hg] Manju Larson PT Work Phone: [facility] 02-11-2022 10:50-0400 Respiratory rate 16 /min Manju Larson PT Work Phone: [facility] 02-11-2022 10:50-0400 Systolic blood pressure 128 mm[Hg] Manju Larson PT Work Phone: [facility] 02-09-2022 12:29-0400 Body temperature 98.01 [degF] Maureen Bowser RN Work Phone: [facility] 02-09-2022 12:29-0400 Body weight 59.88 kg Maureen Bowser RN Work Phone: [facility] 02-09-2022 12:29-0400 Diastolic blood pressure 58 mm[Hg] Maureen Bowser RN Work Phone: [facility] 02-09-2022 12:29-0400 Heart rate 58 /min Maureen Bowser RN Work Phone: [facility] 02-09-2022 12:29-0400 Respiratory rate 20 /min Maureen Bowser RN Work Phone: [facility] 02-09-2022 12:29-0400 SaO2% (BldA) [Mass fraction] 94 % Maureen Bowser RN Work Phone: [facility] 02-09-2022 12:29-0400 Systolic blood pressure 128 mm[Hg] aMureen Bowser RN Work Phone: [facility] 01-31-2022 14:02-0400 Inhaled oxygen flow rate 3 L/min Dr. Christopher Bonilla Work Phone: [facility] Work Phone: 01-31-2022 13:59-0400 Body temperature 98.6 [degF] Dr. Christopher Bonilla Work Phone: [facility] Work Phone: 01-31-2022 13:59-0400 Diastolic blood pressure 54 mm[Hg] Dr. Christopher Bonilla Work Phone: [facility] Work Phone: 01-31-2022 13:59-0400 Heart rate 72 /min Dr. Christopher Bonilla Work Phone: [facility] Work Phone: 01-31-2022 13:59-0400 Respiratory rate 20 /min Dr. Christopher Bonilla Work Phone: [facility] Work Phone: 01-31-2022 13:59-0400 SaO2% (BldA) [Mass fraction] 95 % Dr. Christopher Bonilla Work Phone: [facility] Work Phone: 01-31-2022 13:59-0400 Systolic blood pressure 116 mm[Hg] Dr. Christopher Bonilla Work Phone: [facility] Work Phone: 01-31-2022 06:00-0400 Body weight 62.[address] Christopher Bonilla Work Phone: [facility] Work Phone: 01-27-2022 14:26-0400 Body height 154.[address] Christopher Bonilla Work Phone: [facility] Work Phone: 01-26-2022 08:35-0400 Body mass index (BMI) [Ratio] 25 kg/m2 Dr. Christopher Bonilla Work Phone: [facility] Work Phone: 01-14-2022 13:32-0400 Body weight 60.33 kg Dalila Jensen CHIPPER MACHINE OPERATOR.EXTERNAL GRINDER TOOL Work Phone: [facility] 01-14-2022 13:32-0400 Diastolic blood pressure 60 mm[Hg] Dalila Jensen CHIPPER MACHINE OPERATOR.EXTERNAL GRINDER TOOL Work Phone: [facility] 01-14-2022 13:32-0400 Heart rate 52 /min Dalila Jensen CHIPPER MACHINE OPERATOR.EXTERNAL GRINDER TOOL Work Phone: [facility] 01-14-2022 13:32-0400 Respiratory rate 18 /min Dalila Jensen CHIPPER MACHINE OPERATOR.EXTERNAL GRINDER TOOL Work Phone: [facility] 01-14-2022 13:32-0400 SaO2% (BldA) [Mass fraction] 95 % Dalila Jensen CHIPPER MACHINE OPERATOR.EXTERNAL GRINDER TOOL Work Phone: [facility] 01-14-2022 13:32-0400 Systolic blood pressure 110 mm[Hg] Dalila Jensen CHIPPER MACHINE OPERATOR.EXTERNAL GRINDER TOOL Work Phone: [facility] 12-01-2021 07:12-0400 Body mass index (BMI) [Ratio] 24.5 kg/m2 Dr. Christopher Bonilla Work Phone: [facility] Work Phone: 12-01-2021 07:12-0400 Body temperature 97.4 [degF] Dr. Christopher Bonilla Work Phone: [facility] Work Phone: 12-01-2021 07:12-0400 Body weight 58.[address] Christopher Bonilla Work Phone: [facility] Work Phone: 12-01-2021 07:12-0400 Diastolic blood pressure 62 mm[Hg] Dr. Christopher Bonilla Work Phone: [facility] Work Phone: 12-01-2021 07:12-0400 Heart rate 57 /min Dr. Christopher Bonilla Work Phone: [facility] Work Phone: 12-01-2021 07:12-0400 Respiratory rate 16 /min Dr. Christopher Bonilla Work Phone: [facility] Work Phone: 12-01-2021 07:12-0400 SaO2% (BldA) [Mass fraction] 97 % Dr. Christopher Bonilla Work Phone: [facility] Work Phone: 12-01-2021 07:12-0400 Systolic blood pressure 128 mm[Hg] Dr. Christopher Bonilla Work Phone: [facility] Work Phone: 11-08-2021 14:49-0400 Body mass index (BMI) [Ratio] 24.9 kg/m2 Dr. Christopher Bonilla Work Phone: [facility] Work Phone: 11-08-2021 14:49-0400 Body weight 59.[address] Christopher Bonilla Work Phone: [facility] Work Phone: 11-08-2021 14:49-0400 Diastolic blood pressure 57 mm[Hg] Dr. Christopher Bonilla Work Phone: [facility] Work Phone: 11-08-2021 14:49-0400 Heart rate 46 /min Dr. Christopher Bonilla Work Phone: [facility] Work Phone: 11-08-2021 14:49-0400 Respiratory rate 18 /min Dr. Christopher Bonilla Work Phone: [facility] Work Phone: 11-08-2021 14:49-0400 SaO2% (BldA) [Mass fraction] 95 % Dr. Christopher Bonilla Work Phone: [facility] Work Phone: 11-08-2021 14:49-0400 Systolic blood pressure 118 mm[Hg] Dr. Christopher Bonilla Work Phone: [facility] Work Phone: 10-26-2021 11:22-0400 Body height 154.[address] Christopher Bonilla Work Phone: [facility] Work Phone: 10-26-2021 11:22-0400 Body weight 58.[address] Christopher Bonilla Work Phone: [facility] Work Phone: 10-26-2021 11:22-0400 Heart rate 56 /min Dr. Christopher Bonilla Work Phone: [facility] Work Phone: 10-26-2021 11:22-0400 SaO2% (BldA) [Mass fraction] 94 % Dr. Christopher Bonilla Work Phone: [facility] Work Phone: 10-04-2021 15:00-0400 Heart rate 60 /min Christopher Bonilla MD Work Phone: [facility] 10-04-2021 14:36-0400 Body weight 59.42 kg Christopher Bonilla MD Work Phone: [facility] 10-04-2021 14:36-0400 Diastolic blood pressure 76 mm[Hg] Christopher Bonilla MD Work Phone: [facility] 10-04-2021 14:36-0400 Respiratory rate 16 /min Christopher Bonilla MD Work Phone: [facility] 10-04-2021 14:36-0400 SaO2% (BldA) [Mass fraction] 96 % Christopher Bonilla MD Work Phone: [facility] 10-04-2021 14:36-0400 Systolic blood pressure 118 mm[Hg] Christopher Bonilla MD Work Phone: [facility] 09-16-2021 11:00-0400 Diastolic blood pressure 53 mm[Hg] Dr. Christopher Bonilla Work Phone: [facility] Work Phone: 09-16-2021 11:00-0400 Heart rate 52 /min Dr. Christopher Bonilla Work Phone: [facility] Work Phone: 09-16-2021 11:00-0400 Respiratory rate 20 /min Dr. Christopher Bonilla Work Phone: [facility] Work Phone: 09-16-2021 11:00-0400 Systolic blood pressure 115 mm[Hg] Dr. Christopher Bonilla Work Phone: [facility] Work Phone: 09-16-2021 09:40-0400 Diastolic blood pressure 65 mm[Hg] Dr. Christopher Bonilla Work Phone: [facility] Work Phone: 09-16-2021 09:40-0400 Heart rate 55 /min Dr. Christopher Bonilla Work Phone: [facility] Work Phone: 09-16-2021 09:40-0400 Respiratory rate 21 /min Dr. Christopher Bonilla Work Phone: [facility] Work Phone: 09-16-2021 09:40-0400 SaO2% (BldA) [Mass fraction] 92 % Dr. Christopher Bonilla Work Phone: [facility] Work Phone: 09-16-2021 09:40-0400 Systolic blood pressure 130 mm[Hg] Dr. Christopher Bonilla Work Phone: [facility] Work Phone: 09-16-2021 08:08-0400 Body height 154.[address] Christopher Bonilla Work Phone: [facility] Work Phone: 09-16-2021 08:08-0400 Body mass index (BMI) [Ratio] 24.5 kg/m2 Dr. Christopher Bonilla Work Phone: [facility] Work Phone: 09-16-2021 08:08-0400 Body temperature 98.1 [degF] Dr. Christopher Bonilla Work Phone: [facility] Work Phone: 09-16-2021 08:08-0400 Body weight 58.[address] Christopher Bonilla Work Phone: [facility] Work Phone: 08-16-2021 15:07-0400 Body height 154.[address] Christopher Bonilla Work Phone: [facility] Work Phone: 08-16-2021 15:07-0400 Body mass index (BMI) [Ratio] 25.1 kg/m2 Dr. Christopher Bonilla Work Phone: [facility] Work Phone: 08-16-2021 15:07-0400 Body weight 60.[address] Christopher Bonilla Work Phone: [facility] Work Phone: 08-16-2021 15:07-0400 Diastolic blood pressure 69 mm[Hg] Dr. Christopher Bonilla Work Phone: [facility] Work Phone: 08-16-2021 15:07-0400 Heart rate 73 /min Dr. Christopher Bonilla Work Phone: [facility] Work Phone: 08-16-2021 15:07-0400 Respiratory rate 18 /min Dr. Christopher Bonilla Work Phone: [facility] Work Phone: 08-16-2021 15:07-0400 Systolic blood pressure 104 mm[Hg] Dr. Christopher Bonilla Work Phone: [facility] Work Phone: 08-06-2021 08:23-0500 Body mass index (BMI) [Ratio] 25.3 kg/m2 Dr. Christopher Bonilla Work Phone: [facility] Work Phone: 08-06-2021 08:23-0500 Body temperature 98.2 [degF] Dr. Christopher Bonilla Work Phone: [facility] Work Phone: 08-06-2021 08:23-0500 Body weight 60.[address] Christopher Bonilla Work Phone: [facility] Work Phone: 08-06-2021 08:23-0500 Diastolic blood pressure 67 mm[Hg] Dr. Christopher Bonilla Work Phone: [facility] Work Phone: 08-06-2021 08:23-0500 Heart rate 105 /min Dr. Christopher Bonilla Work Phone: [facility] Work Phone: 08-06-2021 08:23-0500 Respiratory rate 16 /min Dr. Christopher Bonilla Work Phone: [facility] Work Phone: 08-06-2021 08:23-0500 SaO2% (BldA) [Mass fraction] 94 % Dr. Christopher Bonilla Work Phone: [facility] Work Phone: 08-06-2021 08:23-0500 Systolic blood pressure 105 mm[Hg] Dr. Christopher Bonilla Work Phone: [facility] Work Phone: 07-22-2021 14:00-0500 Body temperature 97.8 [degF] Dr. Christopher Bonilla Work Phone: [facility] Work Phone: 07-22-2021 14:00-0500 Diastolic blood pressure 68 mm[Hg] Dr. Christopher Bonilla Work Phone: [facility] Work Phone: 07-22-2021 14:00-0500 Heart rate 95 /min Dr. Christopher Bonilla Work Phone: [facility] Work Phone: 07-22-2021 14:00-0500 Respiratory rate 16 /min Dr. Christopher Bonilla Work Phone: [facility] Work Phone: 07-22-2021 14:00-0500 SaO2% (BldA) [Mass fraction] 97 % Dr. Christopher Bonilla Work Phone: [facility] Work Phone: 07-22-2021 14:00-0500 Systolic blood pressure 110 mm[Hg] Dr. Christopher Bonilla Work Phone: [facility] Work Phone: 07-22-2021 02:40-0500 Body weight 59.[address] Christopher Bonilla Work Phone: [facility] Work Phone: 07-16-2021 05:00-0500 Body mass index (BMI) [Ratio] 26.4 kg/m2 Dr. Christopher Bonilla Work Phone: [facility] Work Phone: 07-09-2021 10:52-0500 SaO2% (BldA) [Mass fraction] 90 % Dr. Christopher Bonilla Work Phone: [facility] Work Phone: 07-09-2021 10:43-0500 Body temperature 98.5 [degF] Dr. Christopher Bonilla Work Phone: [facility] Work Phone: 07-09-2021 10:43-0500 Diastolic blood pressure 66 mm[Hg] Dr. Christopher Bonilla Work Phone: [facility] Work Phone: 07-09-2021 10:43-0500 Heart rate 87 /min Dr. Christopher Bonilla Work Phone: [facility] Work Phone: 07-09-2021 10:43-0500 Respiratory rate 16 /min Dr. Christopher Bonilla Work Phone: [facility] Work Phone: 07-09-2021 10:43-0500 Systolic blood pressure 109 mm[Hg] Dr. Christopher Bonilla Work Phone: [facility] Work Phone: 07-09-2021 05:00-0500 Body weight 59.[address] Christopher Bonilla Work Phone: [facility] Work Phone: 07-07-2021 18:26-0500 Body mass index (BMI) [Ratio] 24.7 kg/m2 Dr. Christopher Bonilla Work Phone: [facility] Work Phone: 06-23-2021 11:20-0500 Body temperature 97.4 [degF] Dr. Christopher Bonilla Work Phone: [facility] Work Phone: 06-23-2021 11:20-0500 Diastolic blood pressure 69 mm[Hg] Dr. Christopher Bonilla Work Phone: [facility] Work Phone: 06-23-2021 11:20-0500 Heart rate 82 /min Dr. Christopher Bonilla Work Phone: [facility] Work Phone: 06-23-2021 11:20-0500 Respiratory rate 18 /min Dr. Christopher Bonilla Work Phone: [facility] Work Phone: 06-23-2021 11:20-0500 SaO2% (BldA) [Mass fraction] 94 % Dr. Christopher Bonilla Work Phone: [facility] Work Phone: 06-23-2021 11:20-0500 Systolic blood pressure 104 mm[Hg] Dr. Christopher Bonilla Work Phone: [facility] Work Phone: 06-23-2021 02:29-0500 Body weight 58.[address] Christopher Bonilla Work Phone: [facility] Work Phone: 06-22-2021 03:00-0500 Body mass index (BMI) [Ratio] 24.7 kg/m2 Dr. Christopher Bonilla Work Phone: [facility] Work Phone: 06-19-2021 08:00-0500 Inhaled oxygen concentration 2 % Dr. Christopher Bonilla Work Phone: [facility] Work Phone: 05-14-2021 13:57-0500 Body mass index (BMI) [Ratio] 24.6 kg/m2 Dr. Christopher Bonilla Work Phone: [facility] Work Phone: 05-14-2021 13:57-0500 Body weight 57.[address] Christopher Bonilla Work Phone: [facility] Work Phone: 05-14-2021 13:57-0500 Diastolic blood pressure 74 mm[Hg] Dr. Christopher Bonilla Work Phone: [facility] Work Phone: 05-14-2021 13:57-0500 Heart rate 91 /min Dr. Christopher Bonilla Work Phone: [facility] Work Phone: 05-14-2021 13:57-0500 Respiratory rate 18 /min Dr. Christopher Bonilla Work Phone: [facility] Work Phone: 05-14-2021 13:57-0500 SaO2% (BldA) [Mass fraction] 94 % Dr. Christopher Bonilla Work Phone: [facility] Work Phone: 05-14-2021 13:57-0500 Systolic blood pressure 116 mm[Hg] Dr. Christopher Bonilla Work Phone: [facility] Work Phone: Encounters Encounter Date Encounter Type Care Provider Facility Start: 04-15-2025 End: 04-15-2025 ambulatory CHRISTOPHER BONILLA Facility:[facility] Start: 04-11-2025 ambulatory MIKE TAVAREZ Facility :[facility] Start: 04-06-2025 End: 04-08-2025 Evaluation and management of inpatient Oj Lorenzo Facility:[facility] Start: 04-06-2025 ambulatory Bony Meza Facility :[facility] Start: 03-27-2025 ambulatory John Last Facility :[facility] Start: 03-26-2025 End: 03-26-2025 ambulatory CHRISTOPHER BONILLA Facility:[facility] Start: 03-11-2025 End: 03-11-2025 ambulatory CHRISTOPHER Tyler [facility] Facility:[facility] Start: 03-04-2025 Patient encounter procedure John Last PA -Radiology [facility] Work Phone: Start: 03-04-2025 End: 03-04-2025 Patient encounter procedure Johnhetal WANG -[facility] Work Phone: Start: 03-04-2025 End: 03-04-[address] Christopher Bonilla MD Work Phone: -[facility] Start: 03-04-2025 End: 03-04-2025 ambulatory John Last Facility:[facility] Start: 02-21-2025 End: 02-21-2025 ambulatory CHIRSTOPHER BONILLA Facility:[facility] Start: 02-18-2025 End: 02-18-2025 Telephone encounter Christopher Bonilla MD Work Phone: [facility] Comment on above: Anticoagulation Start: 02-07-2025 End: 02-07-2025 Telephone encounter Dalila Jensen APRN.EXTERNAL GRINDER TOOL Work Phone: [facility] [place] Comment on above: OV notes faxed to [facility] Start: 02-05-2025 End: 02-05-2025 Transitional care manage srvc 14 day discharge Dalila Jensen APRN.EXTERNAL GRINDER TOOL Work Phone: [facility] Comment on above: Chronic obstructive pulmonary disease, unspecified COPD type (HCC) (Primary Dx); Acute on chronic congestive heart failure, unspecified heart failure type (HCC); Pulmonary emphysema, unspecified emphysema type (HCC); Hypertension, essential; Pulmonary hypertension (HCC) Start: 02-05-2025 End: 02-05-2025 ambulatory [facility] Facility:[facility] Start: 02-04-2025 End: 02-05-2025 Telephone encounter Christopher Bonilla MD Work Phone: [facility] Comment on above: Patient Update Start: 01-29-2025 End: 01-31-2025 Telephone encounter Christopher Bonilla MD Work Phone: [facility] Comment on above: PT- [facility] HH POC and p t update Start: 01-27-2025 End: 01-28-2025 Patient Outreach Ashley Wilkins LPN [facility] Comment on above: Transition Of Care senior care plan of care; Refill Request Start: 01-25-2025 Non-patient / Non-visit Dr. Alida Borges MD -[facility] Work Phone: Start: 01-24-2025 End: 01-24-2025 Telephone encounter Christopher Bonilla MD Work Phone: [facility] Comment on above: Orders Start: 01-24-2025 Non-patient / Non-visit Dr. Alida Borges MD -[facility] Work Phone: Start: 01-23-2025 Non-patient / Non-visit Dr. Alida Borges MD -[facility] Work Phone: Start: 01-22-2025 ambulatory Philip Kamara Fac ility:[facility] Start: 01-22-2025 End: 01-25-2025 Evaluation and management of inpatient Dr. Philip Kamara DO -Progressive Care Unit Work Phone: Start: 01-16-2025 End: 01-16-2025 [facility] [place] Comment on above: Paroxysmal atrial fi brillation (HCC) (Primary Dx) Start: 01-16-2025 End: 01-16-2025 ambulatory [facility] Facility:[facility] Start: 01-07-2025 End: 01-07-2025 ambulatory [facility] Facility:[facility] Start: 01-02-2025 End: 01-02-2025 Emergency department patient visit Dr. Christopher Bonilla MD Work Phone: -Emergency Department Work Phone: Start: 12-23-2024 End: 01-17-2025 Telephone encounter Mimi Encinas CHIPPER MACHINE OPERATOR.EXTERNAL GRINDER TOOL Work Phone: [facility] [place] Comment on above: Results Start: 12-20-2024 End: 12-20-[address] Christopher Bonilla MD Work Phone: -Laboratory Start: 12-20-2024 End: 12-20-2024 Patient encounter procedure Mimi Encinas SENIOR DATABASE ADMINISTRATOR -Laboratory Work Phone: Start: 12-20-2024 End: 12-20-[address] Christopher Bonilla MD Work Phone: -Pulmonary Services/Neurology Start: 12-20-2024 End: 12-20-2024 Patient encounter procedure Hima PETE -Pulmonary Services/Neurology Work Phone: Start: 12-20-2024 End: 12-20-2024 ambulatory Mimi Encinas Facility:[facility] Start: 12-13-2024 End: 12-13-2024 ambulatory MIMI ENCINAS Facility:[facility] Start: 12-13-2024 End: 12-13-2024 Patient encounter procedure Mimi Encinas CHIPPER MACHINE OPERATORMILY Work Phone: [facility] Comment on above: Medicare annual well ness visit, subsequent (Primary Dx); Screening for depression; Encounter for screening examination for other mental health and behavioral disorders; GERD without esophagitis; Fatigue, unspecified type; Pure hypercholesterolemia; Paroxysmal atrial fibrillation (HCC); Hypertension, essential; Pulmonary hypertension (HCC); Chronic obstructive pulmonary disease, unspecified COPD type (HCC); Stage 3 chronic kidney disease, unspecified whether stage 3a or 3b CKD (HCC); Thyroid nodule; Iron deficiency anemia due to chronic blood loss; Rheumatoid arthritis, involving unspecified site, unspecified whether rheumatoid factor present (HCC); Chronic anticoagulation; Prediabetes; Hypotension, unspecified hypotension type Start: 12-05-2024 End: 12-05-2024 Patient encounter procedure Hima PETE -[facility] Work Phone: Start: 12-05-2024 End: 12-05-[address] Christopher Bonilla MD Work Phone: [facility] Start: 11-28-2024 End: 11-28-2024 Anticoagulant drug monitoring [facility] Work Phone: [facility] Comment on above: Paroxysmal atrial fi brillation (HCC) (Primary Dx) Start: 11-28-2024 End: 11-28-2024 ambulatory CHRISTOPHER BONILLA Facility:[facility] Start: 11-18-2024 End: 11-18-2024 Telephone encounter Christopher Bonilla MD Work Phone: [facility] Comment on above: Patient Question Start: 10-31-2024 End: 10-31-2024 Anticoagulant drug monitoring [facility] Work Phone: [facility] Comment on above: Paroxysmal atrial fi brillation (HCC) (Primary Dx) Start: 10-31-2024 End: 10-31-2024 ambulatory CHRISTOPHER BONILLA Facility:[facility] Start: 10-03-2024 End: 10-03-2024 [facility]tico[facility] Work Phone: [facility] Comment on above: Paroxysmal atrial fi brillation (HCC) (Primary Dx) Refill Request Start: 10-03-2024 End: 10-03-2024 ambulatory CHRISTOPHER Tyler KORI Facility:[facility] Start: 09-17-2024 End: 10-10-2024 Telephone encounter Christopher Bonilla MD Work Phone: [facility] Comment on above: Medication Problem Start: 09-02-2024 End: 09-02-2024 Anticoagulant drug monitoring [facility] Work Phone: [facility] Comment on above: Paroxysmal atrial fi brillation (HCC) (Primary Dx) Start: 09-02-2024 End: 09-02-2024 ambulatory CHRISTOPHER Tyler KORI Facility:[facility] Start: 07-29-2024 End: 07-29-2024 [facility]ticoagulant [facility] Work Phone: [facility] [place] Comment on above: Paroxysmal atrial fi brillation (HCC) (Primary Dx) Start: 07-29-2024 End: 07-29-2024 [facility] CHRISTOPHER VANGO Facility:[facility] Start: 07-22-2024 End: 07-22-2024 Refill Christopher Bonilla MD Work Phone: [facility] Comment on above: Refill Request Start: 07-16-2024 End: 07-17-2024 Follow-up encounter Christopher Bonilla MD Work Phone: [facility] Start: 07-16-2024 End: 07-16-2024 ambulatory Bony Farah Facility:[facility] Start: 07-12-2024 End: 07-12-2024 ambulatory CHRISTOPHER Tyler KORI Facility:[facility] Start: 06-28-2024 End: 06-28-2024 ambulatory [facility] Facility:[facility] Start: 06-28-2024 End: 06-28-2024 Anticoagulant drug monitoring [facility] Work Phone: [facility] Comment on above: Paroxysmal atrial fi brillation (HCC) (Primary Dx) Start: 06-20-2024 End: 06-20-2024 Telephone encounter Christopher Bonilla MD Work Phone: [facility] Comment on above: INR check Start: 06-17-2024 End: 06-17-2024 Telephone encounter Christopher Bonilla MD Work Phone: [facility] [place] Comment on above: fax Gastro referral to Dr Flores Start: 06-03-2024 End: 06-03-2024 Telephone encounter Christopher Bonilla MD Work Phone: [facility] [place] Comment on above: Results Start: 05-31-2024 End: 05-31-2024 ambulatory CHRISTOPHER BONILLA Facility:[facility] Start: 05-31-2024 End: 05-31-2024 Patient encounter procedure Christopher Bonilla MD Work Phone: [facility] Comment on above: Hypertension, essent ial (Primary Dx); Paroxysmal atrial fibrillation (HCC); 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); Hyperlipidemia, unspecified hyperlipidemia type; Chronic obstructive pulmonary disease with acute lower respiratory infection (HCC); Stage 3 chronic kidney disease, unspecified whether stage 3a or 3b CKD (HCC); 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; Marfan's syndrome; Rheumatoid arthritis, involving unspecified site, unspecified whether rheumatoid factor present (HCC); History of polymyalgia rheumatica; Chronic anticoagulation; Prediabetes; Thyroid nodule Start: 05-31-2024 End: 05-31-2024 ambulatory CHRISTOPHER BONILLA Facility:[facility] Start: 05-23-2024 End: 05-23-2024 Anticoagulant drug monitoring [facility] Work Phone: [facility] [place] Comment on above: Paroxysmal atrial fi brillation (HCC) (Primary Dx) Start: 05-23-2024 End: 05-23-2024 ambulatory CHRISTOPHER BONILLA Facility:[facility] Start: 05-15-2024 End: 05-15-2024 ambulatory Jolene Osuna RN Esthetician Permanent Makeup Artist Management Comment on above: CDM (Routine outreac h) Start: 04-25-2024 End: 04-25-2024 Anticoagulant drug monitoring [facility] Work Phone: [facility] Comment on above: Paroxysmal atrial fi brillation (HCC) (Primary Dx) Start: 04-25-2024 End: 04-25-2024 Telephone encounter Christopher Bonilla MD Work Phone: [facility] Comment on above: Orders (poc protime) Start: 04-25-2024 End: 04-25-2024 ambulatory CHRISTOPHER BONILLA Facility:[facility] Start: 04-24-2024 End: 04-24-2024 ambulatory Jolene Osuna RN Esthetician Permanent Makeup Artist Management Comment on above: CDM (Routine outreac h) Start: 03-28-2024 End: 03-28-2024 Anticoagulant drug monitoring [facility] Work Phone: [facility] [place] Comment on above: Paroxysmal atrial fi brillation (HCC) (Primary Dx) Refill Request Start: 03-27-2024 End: 03-27-2024 ambulatory Jolene Osuna RN Esthetician Permanent Makeup Artist Management Comment on above: CDM (Routine outreac h) Start: 03-12-2024 End: 03-12-2024 Anticoagulant drug monitoring [facility] Work Phone: [facility] [place] Comment on above: Paroxysmal atrial fi brillation (HCC) (Primary Dx) Start: 03-05-2024 End: 03-05-2024 Anticoagulant drug monitoring [facility] Work Phone: [facility] Comment on above: Paroxysmal atrial fi brillation (HCC) (Primary Dx) Start: 02-29-2024 End: 02-29-2024 ambulatory Jolene Osuna RN Esthetician Permanent Makeup Artist Management Comment on above: CDM (Routine outreac h) Start: 02-27-2024 End: 02-27-2024 Telephone encounter Christopher Bonilla MD Work Phone: [facility] [place] Comment on above: Anticoagulation Start: 02-16-2024 End: 02-16-2024 ambulatory Jolene Osuna RN Esthetician Permanent Makeup Artist Management Comment on above: Refill Request Start: 01-31-2024 End: 02-02-2024 ambulatory Jolene Osuna RN Esthetician Permanent Makeup Artist Management Comment on above: CMD (Routine outreac h) Start: 01-18-2024 End: 01-18-2024 Anticoagulant drug monitoring [facility] Work Phone: [facility] [place] Comment on above: Paroxysmal atrial fi brillation (HCC) (Primary Dx) Start: 01-15-2024 Refill Christopher Bonilla MD Work Phone: [facility] Comment on above: Refill Request Start: 01-04-2024 ambulatory Jolene Osuna RN [facility] Comment on above: CDM (Routine outreac h) Start: 12-21-2023 End: 12-21-2023 Anticoagulant drug monitoring [facility] Work Phone: [facility] Comment on above: Paroxysmal atrial fi brillation (HCC) (Primary Dx) Start: 12-21-2023 Telephone encounter Mimi Encinas APRN.EXTERNAL GRINDER TOOL Work Phone: [facility] [place] Start: 12-08-2023 ambulatory Teresa Mart RN Work Phone: Esthetician [employer] Artist Management Start: 12-08-2023 Follow-up encounter Teresa keene RN Work Phone: Esthetician [employer] Artist Management Comment on above: Community Monitoring Outreach (Follow up ) Start: 12-06-2023 ambulatory Teresa Mart RN Work Phone: Esthetician Permanent Makeup Artist Management Start: 12-06-2023 Follow-up encounter Teresa keene RN Work Phone: Esthetician [employer]ermanent Make[employer] Artist Management Comment on above: Community Monitoring Outreach (Follow Up) Start: 12-01-2023 Telephone encounter Mimi Encinas APRN.SENIOR DATABASE ADMINISTRATOR Work Phone: [facility] [place] Comment on above: Results Start: 11-30-2023 End: 11-30-2023 Anticoagulant drug monitoring [facility] Work Phone: [facility] [place] Comment on above: Paroxysmal atrial fi brillation (HCC) (Primary Dx) Start: 11-30-2023 Telephone encounter Christopher Bonilla MD Work Phone: [facility] [place] Comment on above: Flap Curer - O ther Start: 11-30-2023 End: 11-30-2023 Office outpatient visit 25 minutes Mimi Encinas APRN.SENIOR DATABASE ADMINISTRATOR Work Phone: [facility] [place] Comment on above: Anxiety with depress ion (Primary Dx); Paroxysmal atrial fibrillation (HCC); Hypertension, essential; Pulmonary hypertension (HCC); Other emphysema (HCC); Gastroesophageal reflux disease without esophagitis; Pulmonary emphysema, unspecified emphysema type (HCC); Prediabetes Start: 11-09-2023 ambulatory Jolene Osuna RN Am bulatory Care Management Comment on above: CDM (Routine outreac h) Start: 11-02-2023 End: 11-02-2023 Anticoagulant [facility] monitoring [facility] Work Phone: [facility] [place] Comment on above: Paroxysmal atrial fi brillation (HCC) (Primary Dx) Start: 10-23-2023 ambulatory Jolene Osuna RN Am bulatory Care Management Comment on above: CDM (Routine outreac h) Start: 10-19-2023 End: 10-19-2023 Anticoagulant drug monitoring [facility] Work Phone: [facility] [place] Comment on above: Paroxysmal atrial fi brillation (HCC) (Primary Dx) Start: 10-05-2023 End: 10-05-2023 Anticoagulant drug monitoring [facility] Work Phone: [facility] [place] Comment on above: Paroxysmal atrial fi brillation (HCC) (Primary Dx) Start: 09-26-2023 ambulatory Jolene Osuna RN Am bulatory Care Management Comment on above: CDM (Routine outreac h) Start: 2023 End: 2023 Anticoagulant drug monitoring [facility] Work Phone: [facility] [place] Comment on above: Paroxysmal atrial fi brillation (HCC) (Primary Dx) Start: 09-07-2023 End: 09-07-2023 [facility]: [facility] [place] Comment on above: Paroxysmal atrial fi brillation (HCC) (Primary Dx) Start: 08-29-2023 ambulatory Jolene Osuna RN Am bulatory Care Management Comment on above: CDM (Routine outreac h) Start: 08-22-2023 End: 08-22-2023 Anticoagulant drug monitoring [facility] Work Phone: [facility] [place] Comment on above: Paroxysmal atrial fi brillation (HCC) (Primary Dx) Start: 08-15-2023 End: 08-15-2023 Anticoagulant drug monitoring [facility] Work Phone: [facility] [place] Comment on above: Paroxysmal atrial fi brillation (HCC) (Primary Dx) Start: 08-03-2023 Refill Christopher Bonilla MD Work Phone: [facility] [place] Comment on above: Refill Request; fabienne vu change; Refill Request Start: 08-02-2023 ambulatory Jolene Osuna RN Am bulatory Care Management Comment on above: CDM (Routine outreac h) Start: 08-01-2023 End: 08-01-2023 [facility]ticoagulant [facility] Work Phone: [facility] [place] Comment on above: Paroxysmal atrial fi brillation (HCC) (Primary Dx) Start: 07-25-2023 End: 07-25-2023 Office outpatient visit 15 minutes Mimi Encinas APRN.SENIOR DATABASE ADMINISTRATOR Work Phone: [facility] [place] Comment on above: Chronic obstructive pulmonary disease with acute lower respiratory infection (HCC) (Primary Dx); Paroxysmal atrial fibrillation (HCC) Start: 07-25-2023 End: 07-25-2023 [facility]ticoagulant [facility] Work Phone: [facility] [place] Comment on above: Paroxysmal atrial fi brillation (HCC) (Primary Dx) Start: 07-25-2023 Telephone encounter Mimi Encinas APRN.SENIOR DATABASE ADMINISTRATOR Work Phone: [facility] Start: 07-10-2023 End: 07-10-2023 Office outpatient visit 15 minutes Mimi Encinas APRN.SENIOR DATABASE ADMINISTRATOR Work Phone: [facility] Comment on above: Pulmonary emphysema, unspecified emphysema type (HCC) (Primary Dx); Paroxysmal atrial fibrillation (HCC) Start: 07-10-2023 End: 07-10-2023 Refill Christopher Bonilla MD Work Phone: [facility] Comment on above: Refill Request Paroxysmal atrial fi brillation (HCC) (Primary Dx) Start: 06-15-2023 End: 06-15-[address] Christopher Bonilla Work Phone: [facility] Work Phone: Start: 06-15-2023 End: 06-15-[address] Christopher Bonilla Work Phone: [facility]-Laboratory, Specimen Work Phone: Start: 06-15-2023 End: 06-15-[address] Christopher Bonilla Work Phone: [facility] Work Phone: Start: 06-09-2023 End: 06-09-[address] Christopher Bonilla Work Phone: [facility] Work Phone: Start: 06-09-2023 End: 06-09-[address] Christopher Bonilla Work Phone: [facility]-Ultrasound, [facility] Work Phone: Start: 05-25-2023 ambulatory Jolene Osuna RN Am bulatory Care Management Comment on above: CDM (Routine outreac h) Start: 05-12-2023 End: 05-12-2023 [facility] [place] Comment on above: Paroxysmal atrial fi brillation (HCC) (Primary Dx) Start: 05-11-2023 Telephone encounter Christopher Bonilla MD Work Phone: [facility] [place] Comment on above: Results Start: 05-10-2023 Telephone encounter Jannet wolf PA-C Work Phone: [facility] Comment on above: Appointment Reschedu led Start: 05-10-2023 End: 05-10-2023 Patient encounter procedure Christopher Bonilla MD Work Phone: [facility] [place] Comment on above: Paroxysmal atrial fi brillation (HCC) (Primary Dx); Hyperlipidemia, unspecified hyperlipidemia type; Hypertension, essential; Pulmonary hypertension (HCC); 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); Pulmonary emphysema, unspecified emphysema type (HCC); 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; Gastroesophageal reflux disease, unspecified whether esophagitis present; Stage 3 chronic kidney disease, unspecified whether stage 3a or 3b CKD (HCC); Thyroid nodule; Iron deficiency anemia, unspecified iron deficiency anemia type; Rheumatoid arthritis, involving unspecified site, unspecified whether rheumatoid factor present (HCC); Prediabetes Start: 05-05-2023 Telephone encounter Christopher Bonilla MD Work Phone: [facility] [place] Comment on above: Anticoagulation Start: 05-03-2023 Telephone encounter Christopher Bonilla MD Work Phone: [facility] [place] Comment on above: Anticoagulation Start: 05-01-2023 Telephone encounter Christopher Bonilla MD Work Phone: [facility] [place] Comment on above: Results (Critical IN R) Medication Problem Start: 04-11-2023 ambulatory Jolene Osuna RN Am bulatory Care Management Comment on above: CDM (Routine outreac h) Start: 03-30-2023 Telephone encounter Christopher Bonilla MD Work Phone: [facility] [place] Comment on above: Orders (protime) Start: 03-30-2023 End: 03-30-2023 [facility] [place] Comment on above: Paroxysmal atrial fi brillation (HCC) (Primary Dx) Start: 03-15-2023 ambulatory Jolene Osuna RN Am bulatory Care Management Comment on above: CDM (Routine outreac h) Start: 03-14-2023 End: 03-14-2023 Anticoagulant drug monitoring Anticoag [facility] Work Phone: [facility] [place] Comment on above: Paroxysmal atrial fi brillation (HCC) (Primary Dx) Start: 02-27-2023 Telephone encounter Christopher Bonilla MD Work Phone: [facility] [place] Comment on above: Anticoagulation (/) Start: 02-23-2023 Telephone encounter Christopher Bonilla MD Work Phone: [facility] [place] Comment on above: Anticoagulation Start: 02-22-2023 Refill Christopher Bonilla MD Work Phone: [facility] [place] Comment on above: Refill Request Start: 02-21-2023 Telephone encounter Christopher Bonilla MD Work Phone: [facility] [place] Comment on above: Anticoagulation Start: 02-18-2023 Telephone encounter Christopher Bonilla MD Work Phone: [facility] [place] Comment on above: Anticoagulation Start: 02-15-2023 Telephone encounter Christopher Bonilla MD Work Phone: [facility] [place] Comment on above: Patient Question (IN R/Coumadin) Start: 02-14-2023 End: 02-14-[address] Christopher Bonilla Work Phone: [facility] Work Phone: Comment on above: CDM (Routine outreac h/) Start: 02-14-2023 Non-patient / Non-visit Dr. Derick Bonilla Work Phone: [facility] Start: 02-14-2023 End: 02-14-2023 Admission to same day surgery center Dr. Christopher Bonilla Work Phone: [facility]-Endoscopy Work Phone: Start: 02-10-2023 Telephone encounter Christopher Bonilla MD Work Phone: [facility] [place] Comment on above: INR direction Start: 01-27-2023 ambulatory Christopher Bonilla MD Work Phone: [facility] [place] Comment on above: Shingles Start: 01-27-2023 End: 01-27-2023 Anticoagulant drug monitoring [facility] Work Phone: [facility] [place] Comment on above: Paroxysmal atrial fi brillation (HCC) (Primary Dx) Start: 01-23-2023 Telephone encounter Christopher Bonilla MD Work Phone: [facility] [place] Comment on above: Results Start: 01-20-2023 End: 01-20-2023 Anticoagulant drug monitoring [facility] Work Phone: [facility] [place] Comment on above: Paroxysmal atrial fi brillation (HCC) (Primary Dx) Start: 01-17-2023 Telephone encounter Christopher Bonilla MD Work Phone: [facility] [place] Comment on above: Shingles Start: 01-16-2023 ambulatory Jolene Osuna RN Am bulatory Care Management Comment on above: CDM (Routine outreac h/) Start: 01-14-2023 Telephone encounter Shannon Chiu APRN.EXTERNAL GRINDER TOOL Work Phone: [facility] Comment on above: Results Start: 01-13-2023 End: 01-13-2023 Patient encounter procedure Shanta Logan APRN.EXTERNAL GRINDER TOOL Work Phone: [facility] Comment on above: Herpes zoster withou t complication (Primary Dx); Rash Start: 01-13-2023 Telephone encounter Christopher Bonilla MD Work Phone: [facility] [place] Comment on above: blisters/rash possib le shingles Start: 01-10-2023 End: 01-10-[address] Christopher Bonilla Work Phone: [facility] Work Phone: Start: 01-04-2023 Refill Christopher Bonilla MD Work Phone: [facility] Comment on above: Refill Request Start: 12-26-2022 End: 12-26-[address] Christopher Bonilla Work Phone: [facility]-Radiology, [facility] Work Phone: Start: 12-22-2022 End: 12-22-[address] Christopher Bonilla Work Phone: [facility] Work Phone: Start: 12-09-2022 End: 12-09-[address] Christopher Bonilla Work Phone: [facility] Work Phone: Start: 12-09-2022 End: 12-09-[address] Christopher Bonilla Work Phone: [facility]-Cat Scan, [facility] Work Phone: Start: 12-08-2022 End: 12-08-2022 [facility] Work [facility] [place] Comment on above: Paroxysmal atrial fi brillation (HCC) Start: 12-02-2022 End: 12-02-2022 [facility] Work [facility] [place] Comment on above: Paroxysmal atrial fi brillation (HCC) Start: 11-29-2022 End: 11-29-[address] Christopher Bonilla Work Phone: [facility] Work Phone: Start: 11-29-2022 End: 11-29-[address] Christopher Bonilla Work Phone: [facility]-Pulmonary Medicine [facility] Work Phone: Start: 11-24-2022 End: 11-24-2022 [facility] Work [facility] [place] Comment on above: Paroxysmal atrial fi brillation (HCC) Start: 11-08-2022 End: 11-08-2022 Patient encounter procedure Christopher Bonilla MD Work Phone: [facility] [place] Comment on above: Chronic anticoagulat ion (Primary Dx); Calculus of gallbladder without cholecystitis without obstruction; Prediabetes; Marfan's syndrome; Rheumatoid arthritis, involving unspecified site, unspecified whether rheumatoid factor present (HCC); Thyroid nodule; Pulmonary emphysema, unspecified emphysema type (HCC); History of pleural effusion; History of compression fracture of spine; Microcytosis; Stage 3 chronic kidney disease, unspecified whether stage 3a or 3b CKD (HCC); Bloating Start: 11-08-2022 End: 11-08-2022 Anticoagulant drug monitoring [facility] Work Phone: [facility] [place] Comment on above: Paroxysmal atrial fi brillation (HCC) Start: 10-20-2022 End: 10-20-2022 Subsequent hospital visit by physician [facility] Work Phone: Nuclear Medicine Comment on above: Elevated alkaline ph osphatase level [R74.8] Start: 10-13-2022 End: 10-13-2022 [facility] Work Phone: [facility] [place] Comment on above: Paroxysmal atrial fi brillation (HCC) Start: 10-05-2022 Telephone encounter Usman Mehta PA-C Work Phone: [facility] [place] Comment on above: Orders Start: 09-29-2022 End: 09-29-2022 Anticoagulant drug monitoring [facility] Work Phone: [facility] [place] Comment on above: Paroxysmal atrial fi brillation (HCC) Start: 09-27-2022 Telephone encounter Christopher Bonilla MD Work Phone: [facility] [place] Comment on above: Patient Request Start: 09-22-2022 ambulatory Concha Rocha RN Ambulato ry Care Management Comment on above: CDM (Telephonic outr each) Start: 09-22-2022 Telephone encounter Christopher Bonilla MD Work Phone: [facility] [place] Comment on above: Results Medication Problem Start: 2022 Telephone encounter Usman Mehta PA-C Work Phone: [facility] [place] Comment on above: Results Start: 09-19-2022 End: 09-19-2022 Subsequent hospital visit by physician Diego [facility] [place] Work Phone: Radiology Comment on above: Abdominal swelling, generalized [R19.07] Start: 09-19-2022 End: 09-19-2022 Patient encounter procedure Usman Mehta PA-C Work Phone: [facility] [place] Comment on above: Epigastric pain (Tre queta Dx); Abdominal swelling, generalized; Compression deformity of vertebra Start: 09-05-2022 End: 09-05-2022 Subsequent hospital visit by physician [facility] Work Phone: Radiology Comment on above: Renal mass [N28.89] Start: 09-01-2022 End: 09-01-2022 Patient encounter procedure Christopher Bonilla MD Work Phone: [facility] [place] Comment on above: Compression deformit y of vertebra (Primary Dx); Renal mass; Liver mass Start: 08-29-2022 ambulatory Concha Rocha RN Ambulato ry Care Management Comment on above: CDM (Telephonic outr each) Start: 08-23-2022 End: 08-23-2022 Anticoagulant drug monitoring Anticoag [facility] Work Phone: [facility] [place] Comment on above: Paroxysmal atrial fi brillation (HCC) Start: 08-19-2022 Telephone encounter Christopher Bonilla MD Work Phone: [facility] [place] Comment on above: Results - Mri Start: 08-18-2022 End: 08-18-2022 Subsequent hospital visit by physician Mri [facility] (I-Stat/1.5t) Work Phone: Radiology Comment on above: Pathological fractur e, other site, initial encounter for fracture [M84.48XA] Start: 07-28-2022 End: 07-28-2022 Patient encounter procedure Christopher Bonilla MD Work Phone: [facility] [place] Comment on above: Compression deformit y of vertebra (Primary Dx); Centrilobular emphysema (HCC); Pulmonary hypertension (HCC); Paroxysmal atrial fibrillation (HCC); Rheumatoid arthritis, unspecified (HCC); Chronic respiratory failure with hypoxia (HCC); Rheumatoid arthritis, involving unspecified site, unspecified whether rheumatoid factor present (HCC) Start: 07-21-2022 End: 07-21-2022 Anticoagulant drug monitoring [facility] Work Phone: [facility] [place] Comment on above: Paroxysmal atrial fi brillation (HCC) Start: 07-14-2022 End: 07-14-2022 Subsequent hospital visit by physician [facility] [place] Work Phone: Radiology Comment on above: Upper back pain [M54 .9] Start: 07-07-2022 End: 07-07-2022 Anticoagulant drug monitoring [facility] Work Phone: [facility] [place] Comment on above: Paroxysmal atrial fi brillation (HCC) Start: 07-04-2022 ambulatory Pcp ([facility]) [facility] Start: 07-04-2022 Telephone encounter Christopher Bonilla MD Work Phone: [facility] Comment on above: Patient Question Start: 06-30-2022 End: 06-30-[address] Flaquito Mariee Work Phone: [facility] Work Phone: Start: 06-30-2022 End: 06-30-[address] Flaquito Mariee Work Phone: [facility]-Laboratory, Specimen Start: 06-29-2022 End: 06-29-2022 Patient encounter procedure Shanta Logan APRN.CNP Work Phone: [facility] Comment on above: Upper back pain (Tre queta Dx) Start: 06-29-2022 End: 06-29-[address] Flaquito Mariee Work Phone: [facility] Start: 06-29-2022 Telephone encounter Christopher Bonilla MD Work Phone: [facility] Comment on above: Medication Problem Start: 06-27-2022 End: 06-27-[address] Flaquito Mariee Work Phone: [facility] Start: 06-21-2022 ambulatory Elisabeth lopez RN Work Phone: [employer]hetic[facility] [employer] Comment on above: Community Monitoring Outreach (CDM) Start: 06-20-2022 End: 06-20-[address] Flaquito Mariee Work Phone: [facility] Start: 06-17-2022 Telephone encounter Christopher Bonilla MD Work Phone: [facility] Comment on above: Patient Update Start: 06-02-2022 Telephone encounter Christopher Bonilla MD Work Phone: [facility] Comment on above: Patient Update Start: 05-26-2022 End: 05-26-2022 Anticoagulant drug monitoring [facility] Work Phone: [facility] Comment on above: Paroxysmal atrial fi brillation (HCC) Start: 05-23-2022 End: 05-23-[address] Flaquito Mariee Work Phone: [facility] Start: 05-20-2022 Telephone encounter Dalila morales APRN.CNP Work Phone: [facility] Comment on above: Results; Appointment Start: 05-19-2022 End: 05-19-2022 Anticoagulant drug monitoring [facility] Work Phone: [facility] Comment on above: Paroxysmal atrial fi brillation (HCC) Start: 05-18-2022 ambulatory Elisabeth lopez RN Work Phone: [facility] Start: 05-18-2022 Follow-up encounter Elisabeth Shannon RN Work Phone: [facility] [employer] Comment on above: Community Monitoring Outreach (CDM Follow Up) Start: 05-17-2022 End: 05-17-2022 Subsequent hospital visit by physician [facility] Work Phone: Radiology Comment on above: Rib pain [R07.81] Start: 05-17-2022 End: 05-17-2022 Patient encounter procedure Shannon Chiu CHIPPER MACHINE OPERATORAlexanderEXTERNAL GRINDER TOOL Work Phone: [facility] Comment on above: Rib pain (Primary Dx ) Start: 05-17-2022 End: 05-17-2022 Subsequent hospital visit by physician [facility] Work Phone: Radiology Comment on above: Thyroid nodule [E04. 1] Start: 05-06-2022 Non-patient / Non-visit Dr. Izzy Mariee Work Phone: [facility] Start: 05-05-2022 End: 05-05-[address] Christopher Bonilla Work Phone: [facility] Work Phone: Start: 05-05-2022 End: 05-05-[address] Christopher Bonilla Work Phone: [facility]-Pulmonary Services/Neurology Start: 04-26-2022 ambulatory Elisabeth lopez RN [facility] Phone[facility] Start: 04-26-2022 Follow-up encounter Elisabeth Shannon RN Work Phone: [facility] [employer] [facility] Comment on above: Community Monitoring Outreach (CDM Follow Up) Start: 04-20-2022 Telephone encounter Christopher Bonilla MD Work Phone: [facility] Comment on above: Results Start: 04-19-2022 End: 04-19-2022 ambulatory Elisabeth Shannon RN Work Phone: [facility] Start: 04-19-2022 Follow-up encounter Elisabeth Shannon RN Work Phone: [facility] [employer] [facility] Comment on above: Community Monitoring Outreach (CDM Follow Up) Start: 04-19-2022 Telephone encounter Christopher Bonilla MD Work Phone: [facility] Comment on above: Anticoagulation Start: 04-19-2022 End: 04-19-2022 Patient encounter procedure Christopher Bonilla MD Work Phone: [facility] Comment on above: Hyperlipidemia, unsp ecified hyperlipidemia type (Primary Dx); Hypertension, essential; Moderate mitral regurgitation; Paroxysmal atrial fibrillation (HCC); Pulmonary hypertension (HCC); Lung nodule; Pleural effusion; Thyroid nodule; Marfan's syndrome; Chronic anticoagulation; Prediabetes; History of polymyalgia rheumatica; GERD without esophagitis; Renal infarct (HCC) Start: 04-05-2022 ambulatory Elisabeth lopez RN Work Phone: [facility] [employer] [facility] Comment on above: Community Monitoring Outreach (CDM Telephonic) Start: 04-04-2022 End: 04-04-[address] Christopher Bonilla Work Phone: [facility], [facility] Start: 03-29-2022 End: 03-29-2022 Anticoagulant drug monitoring [facility] Work Phone: [facility] [place] Comment on above: Paroxysmal atrial fi brillation (HCC) Start: 03-24-2022 ambulatory Elisabeth lopez RN Work Phone: [facility] [employer] [facility] Comment on above: Community Monitoring Outreach (CDM Telephonic) Start: 03-22-2022 ambulatory Elisabeth lopez RN Work Phone: [facility] [employer] [facility] Comment on above: Community Monitoring Outreach (CDM Telephonic) Start: 03-15-2022 End: 03-15-2022 Patient encounter procedure Usman Mehta PA-C Work Phone: [facility] Comment on above: Paroxysmal atrial fi brillation (HCC) (Primary Dx); Pleural effusion, right; Renal insufficiency; Acute heart failure with preserved ejection fraction (HCC); Hypertension, essential; Chronic anticoagulation; pasturella bactermia Start: 03-15-2022 Telephone encounter Christopher Bonilla MD Work Phone: [facility] [place] Comment on above: Orders (protime) Start: 03-08-2022 Non-patient / Non-visit Dr. Derick Bonilla Work Phone: [facility] Start: 03-08-2022 End: 03-08-2022 ambulatory Elisabeth Shannon RN Work Phone: [facility] [employer] [facility] Comment on above: Community Monitoring Outreach (CDM Telephonic) Refill Request Start: 03-08-2022 Telephone encounter Tia Harding RN Work Phone: [facility] Comment on above: Home Care Start: 03-08-2022 End: 03-08-[address] Christopher Bonilla Work Phone: [facility]-Laboratory Start: 03-04-2022 End: 03-04-2022 Home visit Tia Harding RN Work Phone: [facility] Comment on above: SN AGENCY DC WO VISI T Start: 03-03-2022 Telephone encounter Christopher Bonilla MD Work Phone: [facility] Comment on above: Anticoagulation Start: 03-02-2022 End: 03-02-2022 Home visit Tia Harding RN Work Phone: [facility] Comment on above: SN ROUTINE Start: 02-25-2022 End: 02-25-2022 Home visit Manju Larson PT Work Phone: [facility] Comment on above: CARE COORDINATION Start: 02-24-2022 End: 02-24-2022 Home visit Tia Harding RN Work Phone: [facility] Comment on above: SN ROUTINE Start: 02-23-2022 Telephone encounter Christopher Bonilla MD Work Phone: [facility] [place] Comment on above: Orders Start: 02-22-2022 ambulatory Elisabeth lopez RN Work Phone: [facility] [employer] [facility] Comment on above: Community Monitoring Outreach (CDM Telephonic) Start: 02-22-2022 Telephone encounter Gemma Stroud on SCHOOL MANAGER Work Phone: [facility] Comment on above: Home Care (Missed PT visit) Start: 02-22-2022 End: 02-22-[address] [facility] Start: 02-22-2022 End: 02-22-2022 Home visit Gemma Machado SCHOOL MANAGER Work Phone: [facility] Comment on above: SCHOOL MANAGER UNM[place] VISIT Start: 02-21-2022 End: 02-21-2022 Home visit Gemma Machado SCHOOL MANAGER Work Phone: [facility] Comment on above: SCHOOL MANAGER UNMADE VISIT Start: 02-18-2022 End: 02-18-2022 Home visit Manju Larson PT Work Phone: [facility] Comment on above: PT ROUTINE Start: 02-17-2022 Telephone encounter Christopher Bonilla MD Work Phone: [facility] Comment on above: Anticoagulation Start: 02-15-2022 End: 02-15-2022 Home visit Gemma Machado SCHOOL MANAGER Work Phone: [facility] Comment on above: SCHOOL MANAGER ROUTINE SN ROUTINE Start: 02-15-2022 Telephone encounter Erik Malagon RN Work Phone: [facility] Comment on above: Home Care (Need for further pt/inr orders) Start: 02-14-2022 Telephone encounter Christopher Bonilla MD Work Phone: [facility] Comment on above: Results Start: 02-14-2022 End: 02-14-[address] Christopher Bonilla Work Phone: [facility] Start: 02-11-2022 End: 02-11-2022 Subsequent hospital visit by physician Diego [facility] Work Phone: Radiology Comment on above: Parapneumonic effusi on [J18.9, J91.8] Start: 02-11-2022 End: 02-11-2022 Home visit Manju Larson PT Work Phone: [facility] Comment on above: PT EVAL Start: 02-10-2022 Telephone encounter Maureen aparicio RN Work Phone: [facility] Comment on above: Home Care (SOC/sever e med interactions) Erroneous encounter- disregard Start: 02-09-2022 End: 02-09-[address] Christopher Bonilla Work Phone: [facility]-Laboratory, Specimen Start: 02-09-2022 ambulatory Elisabeth lopez RN Work Phone: [facility] [employer] Comment on above: Community Monitoring Outreach (CDM Telephonic ) Start: 02-09-2022 Telephone encounter Christopher Bonilla MD Work Phone: [facility] [place] Comment on above: Anticoagulation Start: 02-09-2022 End: 02-09-2022 Home visit Maureen Bowser RN Work Phone: [facility] Comment on above: SN SOC Start: 02-08-2022 Patient Outreach Colleen larry RN Work Phone: [facility] [employer] [facility] Comment on above: Transition Of Care ( TCM initial outreach d/c 02/06 ) Coumadin Dosage Patient Question Start: 02-03-2022 Telephone encounter Cleo Fleming LP N [facility] Comment on above: Home Care (Confirmat ion Call) Start: 01-31-2022 Non-patient / Non-visit Dr. Derick Bonilla Work Phone: [facility] Inpatient Physicians Start: 01-31-2022 Non-patient / Non-visit Dr. Derick Bonilla Work Phone: [facility] Start: 01-30-2022 Non-patient / Non-visit Dr. Dreick Bonilla Work Phone: [facility] Start: 01-29-2022 Non-patient / Non-visit Dr. Derick Boinlla Work Phone: [facility] Start: 01-28-2022 Non-patient / Non-visit Dr. Derick Bonilla Work Phone: [facility] Start: 01-28-2022 Non-patient / Non-visit Dr. Derick Bonilla Work Phone: [facility] Start: 01-28-2022 Non-patient / Non-visit Dr. Derick Bonilla Work Phone: [facility] [facility] Start: 01-27-2022 Non-patient / Non-visit Dr. Derick Bonilla Work Phone: [facility] Start: 01-27-2022 Non-patient / Non-visit Dr. Derick Bonilla Work Phone: [facility] Start: 01-26-2022 Non-patient / Non-visit Dr. Derick Bonilla Work Phone: [facility] Start: 01-26-2022 End: 01-31-2022 Evaluation and management of inpatient Dr. Christopher Bonilla Work Phone: [facility] 3 Start: 01-14-2022 End: 01-14-2022 Office outpatient visit 25 minutes Dalila Jensen APRN.CNP Work Phone: [facility] [place] Comment on above: Hypertension, essent ial (Primary Dx); Renal insufficiency; Prediabetes; Chronic anticoagulation; Gastroesophageal reflux disease, unspecified whether esophagitis present; Hyperlipidemia, unspecified hyperlipidemia type; Paroxysmal atrial fibrillation (HCC); Acute combined systolic and diastolic congestive heart failure (HCC) Start: 01-14-2022 End: 01-14-2022 Anticoagulant drug monitoring [facility] Work Phone: [facility] [place] Comment on above: Paroxysmal atrial fi brillation (HCC) Start: 01-05-2022 ambulatory Elisabeth lopez RN Work Phone: [facility] Start: 01-05-2022 Follow-up encounter 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 Derick Bonilla Work Phone: [facility] Start: 10-26-2021 End: 10-26-[address] [facility] Start: 10-25-2021 ambulatory Elisabeth lopez RN Work Phone: [employer] Start: 10-25-2021 Follow-up encounter Elisabeth Shannon RN Work Phone: Esthetic[employer] Comment on above: Community Monitoring Outreach (Telephonic Follow Up) Start: 10-23-2021 Non-patient / Non-visit Dr. Derick Bonilla Work Phone: [facility] Start: 10-22-2021 End: 10-22-[address] Christopher Bonilla Work Phone: [facility] Start: 10-18-2021 End: 10-18-2021 Anticoagulant drug monitoring [facility] Work Phone: [facility] Comment on above: Paroxysmal atrial fi brillation (HCC) Start: 10-11-2021 ambulatory Elisabeth lopez RN Work Phone: [employer] Start: 10-11-2021 Follow-up encounter Elisabeth Shannon RN Work Phone: [employer]hetic[employer] Comment on above: Community Monitoring Outreach (Telephonic Follow Up) Refill Request Start: 10-11-2021 End: 10-11-2021 Anticoagulant drug monitoring [facility] Work Phone: [facility] Comment on above: Paroxysmal atrial fi brillation (HCC) Start: 10-06-2021 Telephone encounter Christopher Bonilla MD Work Phone: [facility] Comment on above: Results Start: 10-05-2021 Telephone encounter Christopher Bonilla MD Work Phone: [facility] [place] Comment on above: Results Start: 10-04-2021 End: 10-04-2021 Subsequent hospital visit by physician Xr [facility] [place] Work Phone: Radiology Comment on above: Pleural effusion, ri ght [J90] Start: 10-04-2021 End: 10-04-2021 Patient encounter procedure Christopher Bonilla MD Work Phone: [facility] Comment on above: Thyroid nodule (Prim karen Dx); History of colonic polyps; Paroxysmal atrial fibrillation (HCC); Hypertension, essential; Pulmonary hypertension (HCC); Hyperlipidemia, unspecified hyperlipidemia type; Pleural effusion, right; Prediabetes; Medication monitoring encounter Start: 10-04-2021 End: 10-04-2021 Anticoagulant drug monitoring [facility] Work Phone: [facility] [place] Comment on above: Paroxysmal atrial fi brillation (HCC) Start: 09-27-2021 ambulatory Elisabeth lopez RN [facility] Start: 09-27-2021 Follow-up encounter Elisabeth Shannon RN Esthetic[employer] Comment on above: Community Monitoring Outreach (Telephonic Follow Up) Start: 09-20-2021 Telephone encounter Christopher Bonilla MD Work Phone: [facility] [place] Comment on above: Anticoag order Start: 09-16-2021 Telephone encounter Christopher Bonilla MD Work Phone: [facility] Comment on above: Anticoagulation Patient Update Start: 09-16-2021 End: 09-16-[address] Christopher Bonilla Work Phone: [facility] Start: 09-09-2021 End: 09-09-[address] Christopher Bonilla Work Phone: [facility] Start: 09-09-2021 End: 09-09-2021 Anticoagulant drug monitoring [facility] Work Phone: [facility] [place] Comment on above: Paroxysmal atrial fi brillation (HCC) Start: 08-31-2021 ambulatory Elisabeth lopez RN [facility] Start: 08-31-2021 Follow-up encounter Elisabeth Shannon RN [employer]hetic[employer] Comment on above: Community Monitoring Outreach (Telephonic Follow Up) Start: 08-25-2021 End: 08-25-[address] Christopher Bonilla Work Phone: [facility]Labor[facility], Specimen Start: 08-25-2021 End: 08-25-2021 Subsequent hospital visit by physician Xr [facility] Work Phone: Radiology Comment on above: SOB (shortness of br eath) [R06.02] Start: 08-25-2021 Telephone encounter Christopher Bonilla MD Work Phone: [facility] Comment on above: Results Anticoagulation Start: 08-16-2021 End: 08-16-[address] Christopher Bonilla Work Phone: [facility] Start: 08-06-2021 End: 08-06-[address] [facility] Start: 08-05-2021 Telephone encounter Christopher Bonilla MD Work Phone: [facility] Comment on above: INR draw Start: 08-05-2021 End: 09-02-[address] Christopher Bonilla Work Phone: [facility] Start: 08-05-[address] Mike Bonilla Work Phone: [facility] Start: 08-04-2021 End: 08-04-[address] Christopher Bonilla Work Phone: [facility], Specimen Start: 08-02-2021 Telephone encounter Christopher Bonilla MD Work Phone: [facility] Comment on above: Anticoagulation Start: 07-28-2021 End: 07-28-2021 Subsequent hospital visit by physician Xr [facility] Work Phone: Radiology Comment on above: Recurrent right pleu ral effusion [J90] Start: 07-28-2021 End: 07-28-[address] Christopher Bonilla Work Phone: [facility], Specimen Start: 07-22-2021 Non-patient / Non-visit Dr. Derick Bonilla Work Phone: [facility] Start: 07-21-2021 Non-patient / Non-visit Dr. Derick Bonilla Work Phone: [facility] Start: 07-20-2021 Non-patient / Non-visit Dr. Derick Bonilla Work Phone: [facility] Start: 07-19-2021 Non-patient / Non-visit Dr. Derick Bonilla Work Phone: [facility] Start: 07-18-2021 Non-patient / Non-visit Dr. Derick Bonilla Work Phone: [facility] Start: 07-17-2021 Non-patient / Non-visit Dr. Derick Bonilla Work Phone: [facility] Start: 07-17-2021 Non-patient / Non-visit Dr. Derick Bonilla Work Phone: [facility] Start: 07-16-2021 Non-patient / Non-visit Dr. Derick Bonilla Work Phone: [facility] Start: 07-15-2021 Non-patient / Non-visit Dr. Derick Bonilla Work Phone: [facility] Start: 07-15-2021 Non-patient / Non-visit Dr. Derick Bonilla Work Phone: [facility] Start: 07-14-2021 Non-patient / Non-visit Dr. Derick Bonilla Work Phone: [facility] Start: 07-14-2021 End: 07-22-2021 Evaluation and management of inpatient Dr. Christopher Bonilla Work Phone: [facility] Start: 07-09-2021 Non-patient / Non-visit Dr. Derick Bonilla Work Phone: [facility] Start: 07-09-2021 Non-patient / Non-visit Dr. Derick Bonilla Work Phone: [facility] Start: 07-08-2021 Non-patient / Non-visit Dr. Derick Bonilla Work Phone: [facility] Start: 07-08-2021 End: 07-09-2021 Evaluation and management of inpatient Dr. Christopher Bonilla Work Phone: [facility] Start: 07-07-2021 Non-patient / Non-visit Dr. Derick Bonilla Work Phone: [facility] Start: 07-02-2021 End: 07-02-2021 Subsequent hospital visit by physician Xr [facility] Work Phone: Radiology Comment on above: Pleural effusion, ri ght [J90] Start: 06-23-2021 Non-patient / Non-visit Dr. Derick Bonilla Work Phone: [facility] Start: 06-22-2021 Non-patient / Non-visit Dr. Derick Bonilla Work Phone: [facility] Start: 06-21-2021 Non-patient / Non-visit Dr. Derick Bonilla Work Phone: [facility] Start: 06-20-2021 Non-patient / Non-visit Dr. Derick Bonilla Work Phone: [facility] Start: 06-19-2021 Non-patient / Non-visit Dr. Derick Bonilla Work Phone: [facility] Start: 06-18-2021 End: 06-23-2021 Evaluation and management of inpatient Dr. Christopher Bonilla Work Phone: [facility] Start: 06-18-2021 End: 06-18-2021 Subsequent hospital visit by physician Xr [facility] Work Phone: Radiology Comment on above: Dyspnea, unspecified type [R06.00] Start: 05-14-2021 End: 05-14-[address] Christopher Bonilla Work Phone: [facility] Start: 05-04-2020 End: 05-04-2020 Subsequent hospital visit by physician Xr [facility] Work Phone: Radiology Comment on above: Cough [R05] Start: 03-20-2018 Ambulatory [place] [facility] ity:[facility] Start: 07-20-2017 End: 07-20-2017 Ambulatory [facility] Facility:[facility] Start: 06-30-2017 Ambulatory [facility] Facility :[facility] Procedures Date Procedure Procedure Detail Performing Clinician Start: 03-04-2025 Radiologic exam chest [address] Lenka Bonilla MD Work Phone: Start: 02-18-2025 Prothrombin time [facility] Provider Start: 01-25-[address] Mike Bonilla MD Work Phone: Start: 01-22-2025 Urnls dip stick/tablet reagent auto microscopy Dr. Christopher Bonilla MD Work Phone: Start: 01-22-2025 Computed tomography of abdomen and pelvis with intravenous contrast Dr. Christopher Bonilla MD Work Phone: Start: 01-22-2025 SARS-CoV-2, Influenza & RSV (PCR) Dr. Derick Bonilla MD Work Phone: Start: 01-22-2025 X-ray of chest, PA and lateral views Dr. Christopher Bonilla MD Work Phone: Start: 01-22-[address] Mike Bonilla MD Work Phone: Start: 01-16-2025 Prothrombin time [facility] Provider Start: 01-02-2025 Urnls dip stick/tablet reagent auto microscopy Dr. Christopher Bonilla MD Work Phone: Start: 01-02-2025 Computed tomography of abdomen and pelvis with intravenous contrast Dr. Christopher Bonilla MD Work Phone: Start: 01-02-[address] Mike Bonilla MD Work Phone: Start: 12-20-2024 Creatinine [Mass/volume] in Serum or Plasma [facility] Provider Start: 12-20-2024 Hemoglobin A1c/Hemoglobin.total in Blood [facility] Provider Start: 12-20-2024 Thyrotropin [Units/volume] in Serum or Plasma [facility] Provider Start: 12-20-2024 Total iron binding capacity measurement Dr. Christopher Bonilla MD Work Phone: Start: 12-20-2024 X-ray of chest, PA and lateral views Dr. Christopher Bonilla MD Work Phone: Start: 12-13-2024 Adult depression screening assessment Mimi Encinas CHIPPER MACHINE OPERATOR.EXTERNAL GRINDER [employer]OL Work Phone: Start: 11-30-2023 Adult depression screening assessment Jolene Osuna RN Start: 06-09-2023 US scan of thyroid Dr. Christopher Bonilla Work Phone: Start: 02-14-[address] Christopher duval Work Phone: Start: 12-26-2022 Radiologic examination of upper gastrointestinal tract and small bowel with serial films Dr. Christopher Bonilla Work Phone: Start: 12-09-2022 CT of abdomen and pelvis with oral contrast Dr. Christopher Bonilla Work Phone: Start: 10-20-2022 Bone &/joint imaging whole body Usman smart Tyson PA-C Work Phone: Start: 09-19-2022 Radiologic exam abdomen 1 view Usman Luigi Tyson PA-C Work Phone: Start: 09-19-2022 H/O: hysterectomy History of hysterectomy NA Mehta PA-C Work Phone: Start: 09-19-2022 End: 11-08-2022 H/O: surgery History of surgical procedure NA Mehta PA-C Work Phone: Start: 09-05-2022 Us abdominal real time w/image documentation Christopher Bonilla MD Work Phone: Start: 08-18-2022 Mri spinal canal thoracic w/o contrast matrl Usman Luigi WANG-C Work Phone: Start: 07-14-2022 Radex spine thoracic 3 views Crhistopher duval MD Work Phone: Start: 05-17-2022 Radex ribs uni w/posteroant ch minimum 3 views Shannon Chiu APRN.EXTERNAL GRINDER [employer]OL Work Phone: Start: 05-17-2022 Us soft tissue head & neck real time imge docm Christopher Bonilla MD Work Phone: Start: 04-19-2022 PROTHROMBIN TIME/PT [facility] Provider Start: 04-04-2022 Plain chest X-ray Dr. Christopher Bonilla Work Phone: Start: 02-11-2022 Radiologic exam chest 2 views Christopher Bonilla MD Work Phone: Start: 02-09-2022 INR in Platelet poor plasma by Coagulation assay [facility] Provider Start: 01-30-2022 CT of chest without contrast Dr. Christopher Bonilla Work Phone: Start: 01-28-2022 Plain chest X-ray Dr. Christopher Bonilla Work Phone: Start: 01-27-2022 Plain chest X-ray Dr. Christopher Bonilla Work Phone: Start: 01-26-2022 Plain chest X-ray Dr. Christopher Bonilla Work Phone: Start: 01-26-2022 Ultrasonic guidance for thoracentesis Dr. Christopher Bonilla Work Phone: Start: 01-26-2022 CT angiography of chest with contrast Dr. Christopher Bonilla Work Phone: Start: 01-26-2022 Plain chest X-ray Dr. Christopher Bonilla Work Phone: Start: 01-14-2022 Adult depression screening assessment Dalila Jensen APRN.EXTERNAL GR[employer]ER [employer] Work Phone: Start: 10-04-2021 Radiologic exam chest 2 views Christopher Bonilla MD Work Phone: Start: 09-16-2021 PROTHROMBIN TIME/PT [facility] Provider Start: 09-16-2021 CT of abdomen with contrast Dr. Christopher Bonilla Work Phone: Start: 08-25-2021 Radiologic exam chest 2 views Christopher Bonilla MD Work Phone: Start: 08-25-2021 INR in Platelet poor plasma by Coagulation assay [facility] Provider Start: 08-02-2021 PROTHROMBIN TIME/PT [facility] Provider Start: 07-28-2021 Radiologic exam chest 2 views Dalila morales APRN.[employer]TERNAL [employer] Work Phone: Start: 07-16-[address] Christopher Bonilla Work Phone: Start: 07-16-2021 End: 07-16-[address] Christopher Bonilla Work Phone: Start: 07-16-2021 Investigation of transfusion reaction Dr. Christopher Bonilla Work Phone: Start: 07-16-2021 Plain chest X-ray Dr. Christopher Bonilla Work Phone: Start: 07-16-2021 Ultrasonic guidance for thoracentesis Dr. Christopher Bonilla Work Phone: Start: 07-15-2021 MRI of abdomen with contrast Dr. Christopher Bonilla Work Phone: Start: 07-14-2021 Bacteria identified in Blood by Culture Dr. Christopher Bonilla Work Phone: Start: 07-14-2021 End: 07-14-2021 Legionella pneumophila antigen assay Dr. Christopher Bonilla Work Phone: Start: 07-14-2021 End: 07-14-2021 Respiratory syncytial virus antigen assay Dr. Christopher Bonilla Work Phone: Start: 07-14-2021 Streptococcus pneumoniae Antigen (M Dr. Christopher Bonilla Work Phone: Start: 07-14-2021 Computed tomography of abdomen and pelvis with intravenous contrast Dr. Christopher Bonilla Work Phone: Start: 07-14-2021 CT angiography of chest with contrast Dr. Christopher Bonilla Work Phone: Start: 07-09-2021 Plain chest X-ray Dr. Christopher Bonilla Work Phone: Start: 07-09-2021 Ultrasonic guidance for thoracentesis Dr. Christopher Bonilla Work Phone: Start: 07-07-2021 Plain chest X-ray Dr. Christopher Bonilla Work Phone: Start: 07-02-2021 Radiologic exam chest 2 views Ranjith ramsey MD Work Phone: Start: 06-22-2021 End: 06-22-[address] Acid fast bacilli culture Dr. Christopher Henry Work Phone: Start: 06-22-2021 End: 06-22-2021 Cytopathology procedure, preparation of smear, genital source Dr. Christopher Bonilla Work Phone: Start: 06-22-2021 Plain chest X-ray Dr. Christopher Bonilla Work Phone: Start: 06-22-2021 Ultrasonic guidance for thoracentesis Dr. Christopher Bonilla Work Phone: Start: 06-19-2021 Streptococcus pneumoniae Antigen (M Dr. Christopher Bonilla Work Phone: Start: 06-18-2021 Plain chest X-ray Dr. Christopher Bonilla Work Phone: Start: 06-18-2021 SARS-CoV-2 Antigen (Rapid) Dr. Christopher duval Work Phone: Start: 06-18-2021 Radiologic exam chest 2 views Ovidio brand MD Work Phone: Start: 05-11-2021 Adult depression screening assessment Christopher Bonilla MD Work Phone: Start: 05-04-2020 Radiologic exam chest 2 views Shannon Chiu CHIPPER MACHINE OPERATORAlexanderEXTERNAL GRINDER TOOL Work Phone: Start: 10-16-2014 Colonoscopy Christopher Bonilla MD Work Phone: Anaerobic microbial culture Dr. Christopher Bonilla Work Phone: Bacteria identified in Blood by Culture Dr. Christopher Bonilla Work Phone: Bacterial culture Dr. Lenka Bonilla Work Phone: Investigation of tra nsfusion reaction Dr. Christopher Bonilla Work Phone: Respiratory Panel (PCR) Dr. Christopher Bonilla Work Phone: Urine culture Dr. Christopher Henry Work Phone: Plan of Treatment Date Care Activity Detail Author Start: 12-21-2027 Diabetes Screening Diabetes Screening [facility] Start: 05-31-2027 Diabetes Screening Diabetes Screening [facility] Start: 11-29-2026 Diabetes Screening Diabetes Screening [facility] Start: 05-10-2026 Diabetes Screening Diabetes Screening [facility] Start: 04-02-2026 LIPID SCREEN LIPID SCREEN [facility] Start: 02-05-2026 Annual PCP Team Chronic Disease Visit Annual PCP Team Chronic Disease Visit [facility] Start: 12-13-2025 Annual PCP Team Chronic Disease Visit Annual PCP Team Chronic Disease Visit [facility] Start: 12-13-2025 Anxiety Screening Anxiety Screening [facility] Start: 12-13-2025 Depression Screening Depression Screening [facility] Start: 11-08-2025 DIABETES SCREEN DIABETES SCREEN [facility] Start: 11-08-2025 Diabetes Screening Diabetes Screening [facility] Start: 09-19-2025 DIABETES SCREEN DIABETES SCREEN [facility] Start: 07-20-2025 Urine microalbumin profile [facility] Start: 06-17-2025 End: 06-17-2025 Patient encounter procedure 06/17/2025 2:40 PM EST Office Visit [facility] [place] [address] [facility] [place] [address] Christopher Bonilla MD [address] [facility] [place] [address] 6 month exam [facility] [place] Comment on above: 6 month exam Start: 06-04-2025 Advance Directive Discussion Advance Directive Discussion [facility] Comment on above: Postponed from 06/05/2024 (Declined at t his time) Start: 05-31-2025 Annual PCP Team Chronic Disease Visit Annual PCP Team Chronic Disease Visit [facility] Start: 05-31-2025 BP Controlled (<130/80) BP Controlled (<130/80) [facility] Start: 05-31-2025 Covid-19 Vaccine ( season) Covid-19 Vaccine ( season) [facility] Comment on above: Postponed from 02/04/2024 (Declined at t his time) Start: 05-31-2025 Creatinine measurement Serum Creatinine [facility] Start: 05-31-2025 RSV Vaccine (1 - 1-dose 75+ series) RSV Vaccine (1 - 1-dose 75+ series) [facility] Comment on above: Postponed from 2020 (Declined at t his time) Start: 05-05-2025 DIABETES SCREEN DIABETES SCREEN [facility] Start: 04-19-2025 DIABETES SCREEN DIABETES SCREEN [facility] Start: 03-04-2025 End: 03-04-2025 Evaluation of diagnostic study results [facility] Start: 02-28-2025 End: 02-28-2025 Evaluation of diagnostic study results [facility] Start: 02-21-2025 End: 02-21-2025 Anticoagulant drug monitoring 02/21/2025 2:30 PM EDT Anticoagulation Visit [facility] [place] [address] [facility] [place] [address] Wstr, Anticoag [facility] [place] [address] [facility] [place] [address] inr Coumadin [facility] Comment on above: inr Start: 02-12-2025 End: 02-12-2025 Patient encounter procedure 02/12/2025 2:00 PM EDT Office Visit [facility] [address] [facility] [place] [address] Dalila Jensen, PADMA.EXTERNAL GRINDER TOOL [address] [facility] [place] [place] [address] 1 week recheck [facility] Comment on above: 1 week recheck Start: 02-11-2025 DIABETES SCREEN DIABETES SCREEN [facility] Start: 02-05-2025 End: 02-05-2025 Patient encounter procedure 02/05/2025 2:00 PM EDT Office Visit [facility] [address] [facility] [place] [address] Dalila Jensen, CHIPPER MACHINE OPERATOR.EXTERNAL GRINDER TOOL [address] [facility] [place] [address] [facility] discharge [facility] Comment on above: [facility] discharge Start: 02-03-2025 DIABETES SCREEN DIABETES SCREEN [facility] Start: 02-03-2025 Influenza vaccination [facility] Start: 01-29-2025 End: 01-29-2025 Patient encounter procedure 01/29/2025 3:00 PM EDT Office Visit [facility] [address] [facility] [place] [address] Dalila Jensen, CHIPPER MACHINE OPERATOR.EXTERNAL GRINDER TOOL [address] [place] [address] [facility] discharge 01/25-CHF -TCM [facility] Comment on above: [facility] discharge 01/25-CHF -TCM Start: 01-25-2025 Patient discharge [facility] Start: 01-24-2025 Referral to [facility] Start: 01-23-2025 Referral for physical therapy [facility] Start: 01-23-2025 Referral to occupational therapist [facility] Start: 01-23-2025 Referral to service [facility] Start: 01-22-2025 Following clinical pathway protocol [facility] Start: 01-22-2025 Ambulation without limitation [facility] Start: 01-22-2025 Assessment of risk of venous thromboembolism [facility] Start: 01-22-2025 Inhalation therapy procedure [facility] Start: 01-22-2025 Insertion of catheter into peripheral vein [facility] Start: 01-22-2025 Measuring intake and output [facility] Start: 01-22-2025 Oxygen therapy [facility] Start: 01-22-2025 Providing care according to standard [facility] Start: 01-22-2025 Referral to service [facility] Start: 01-22-2025 [facility] Start: 01-22-2025 Verification routine [facility] Start: 01-22-2025 Admission procedure [facility] Start: 01-22-2025 End: 01-22-2025 Hospital admission, emergency, from emergency room, medical nature [facility] Start: 01-22-2025 Patient referral to dietitian [facility] Start: 01-02-2025 [facility] Start: 01-02-2025 End: 01-02-2025 Anticoagulant drug monitoring 01/02/2025 2:00 PM EDT Anticoagulation Visit Coumadin [facility] [address] [place] [id number] Wstr, Anticoag [facility] [address] [place] [id number] inr [facility] Comment on above: inr Start: 12-13-2024 End: 03-14-2025 CBC W Auto Differential panel - Blood COMPLETE BLOOD COUNT AND DIFFERENTIAL Lab Routine Fatigue, unspecified type Rheumatoid arthritis, involving unspecified site, unspecified whether rheumatoid factor present (HCC) Chronic anticoagulation Expected: 12/13/2024, Expires: 03/14/2025 [facility] Work Phone: Comment on above: Expected: 12/13/2024, Expires: Start: 12-13-2024 End: 03-14-2025 Cobalamin (Vitamin B12) [Mass/volume] in Serum or Plasma VITAMIN B12 Lab Routine Fatigue, unspecified type Expected: 12/13/2024, Expires: 03/14/2025 [facility] Comment on above: Expected: 12/13/2024, Expires: Start: 12-13-2024 End: 03-14-2025 Comprehensive metabolic 2000 panel - Serum or Plasma COMPREHENSIVE METABOLIC PANEL Lab Routine Fatigue, unspecified type Stage 3 chronic kidney disease, unspecified whether stage 3a or 3b CKD (HCC) Chronic anticoagulation Expected: 12/13/2024, Expires: 03/14/2025 [facility] Comment on above: Expected: 12/13/2024, Expires: Start: 12-13-2024 End: 03-14-2025 Ferritin [Mass/volume] in Serum or Plasma FERRITIN Lab Routine Fatigue, unspecified type Expected: 12/13/2024, Expires: 03/14/2025 [facility] Comment on above: Expected: 12/13/2024, Expires: Start: 12-13-2024 End: 03-14-2025 Hemoglobin A1c in Blood HEMOGLOBIN A1C Lab Routine Fatigue, unspecified type Prediabetes Expected: 12/13/2024, Expires: 03/14/2025 [facility] Comment on above: Expected: 12/13/2024, Expires: Start: 12-13-2024 End: 03-14-2025 Iron and Iron binding capacity panel - Serum or Plasma IRON AND TIBC Lab Routine Fatigue, unspecified type Expected: 12/13/2024, Expires: 03/14/2025 [facility] Comment on above: Expected: 12/13/2024, Expires: Start: 12-13-2024 End: 03-14-2025 Magnesium [Mass/volume] in Serum or Plasma MAGNESIUM Lab Routine Fatigue, unspecified type Stage 3 chronic kidney disease, unspecified whether stage 3a or 3b CKD (HCC) Expected: 12/13/2024, Expires: 03/14/2025 [facility] Comment on above: Expected: 12/13/2024, Expires: Start: 12-13-2024 End: 03-14-2025 Thyrotropin [Units/volume] in Serum or Plasma THYROID STIMULATING HORMONE Lab Routine Fatigue, unspecified type Thyroid nodule Rheumatoid arthritis, involving unspecified site, unspecified whether rheumatoid factor present (HCC) Expected: 12/13/2024, Expires: 03/14/2025 [facility] Comment on above: Expected: 12/13/2024, Expires: Start: 12-09-2024 End: 12-09-2024 Patient encounter procedure 12/09/2024 5:20 PM EDT Office Visit [facility] [place] [address] [facility], [place] [id number] Christopher Bonilla MD [address] [facility], [place] [id number] physical [facility] [place] Comment on above: physical Start: 12-02-2024 Influenza vaccination [facility] Comment on above: Postponed from 02/04/2024 (Declined at t his time) Start: 11-29-2024 Anxiety Screening Anxiety Screening [facility] Start: 11-29-2024 BP Controlled (<130/80) BP Controlled (<130/80) [facility] Start: 11-29-2024 Covid-19 Vaccine ( season) Covid-19 Vaccine ( season) [facility] Comment on above: Postponed from 02/03/2023 (Declined at t his time) Start: 11-29-2024 Creatinine measurement Serum Creatinine [facility] Start: 11-29-2024 Depression Screening Depression Screening [facility] Start: 11-29-2024 Shingrix Vaccine (1 of 2) Shingrix Vaccine (1 of 2) [facility] Comment on above: Postponed from 09/22/1995 (Insurance Cov erage) Start: 11-28-2024 End: 11-28-2024 Anticoagulant drug monitoring 11/28/2024 2:00 PM EDT [facility] [address] [facility], [place] [address] Wstr, Anticoag [facility] [place] [address] [facility], [place] [address] inr [facility] Comment on above: inr Start: 10-31-2024 End: 10-31-2024 Anticoagulant drug monitoring 10/31/2024 2:00 PM EDT Antico[facility] [address] [facility] [place] [address] Wstr, Anticoag [facility] [address] [place] [address] inr [facility] Comment on above: inr Start: 10-18-2024 DIABETES SCREEN DIABETES SCREEN [facility] Start: 10-04-2024 DIABETES SCREEN DIABETES SCREEN [facility] Start: 09-30-2024 End: 09-30-2024 Anticoagulant drug monitoring 09/30/2024 2:00 PM EDT Antico[facility] [address] [facility] [place] [address] Wstr, Anticoag [facility] [address] [place] [address] inr [facility] Comment on above: inr Start: 08-26-2024 End: 08-26-2024 Anticoagulant drug monitoring 08/26/2024 2:00 PM EDT Antico[facility] [address] [place] [address] Wstr, Anticoag [facility] [address] [facility] [place] [address] inr [facility] Comment on above: inr Start: 08-25-2024 DIABETES SCREEN DIABETES SCREEN [facility] Start: 07-25-2024 End: 07-25-2024 Anticoagulant drug monitoring 07/25/2024 2:00 PM EST Anticoagulation [facility] [address] [facility] [place] [address] Wstr, Anticoag [facility] [address] [place] [address] inr [facility] Comment on above: inr Start: 07-25-2024 BP Controlled (<130/80) BP Controlled (<130/80) [facility] in Start: 07-15-2024 End: 10-14-2024 Hepatic function 2000 panel - Serum or Plasma HEPATIC FUNCTION PNL Lab Routine Hyperlipidemia, unspecified hyperlipidemia type Expected: 07/15/2024, Expires: 10/14/2024 [facility] Work Phone: Comment on above: Expected: 07/15/2024, Expires: Start: 07-15-2024 End: 10-14-2024 Lipid 1996 panel - Serum or Plasma LIPID PANEL BASIC Lab Routine Hyperlipidemia, unspecified hyperlipidemia type Expected: 07/15/2024, Expires: 10/14/2024 [facility] Comment on above: Expected: 07/15/2024, Expires: Start: 07-10-2024 BP Controlled (<130/80) BP Controlled (<130/80) [facility] Start: 07-09-2024 End: 07-09-2024 Patient encounter procedure 07/09/2024 1:25 PM EST Office Visit [facility] [address] [place] [id number] Deana Gonzales PA-C [address] [place], [place] [phone] Esophagus erosion [facility] Comment on above: Esophagus erosion Start: 06-20-2024 End: 06-20-2024 Anticoagulant drug monitoring 06/20/2024 1:45 PM EST Anticoagulation Visit Coumadin [facility] [place] [address] [place] [address] Wstr, Anticoag [facility] [place] [address] [place], [place] [address] inr [facility] Comment on above: inr Start: 06-05-2024 Advance Directive Discussion Advance Directive Discussion [facility] Start: 06-05-2024 Medicare Advantage Annual Wellness Visit Medicare Advantage Annual Wellness Visit [facility] Start: 05-31-2024 End: 08-30-2024 CBC W Auto Differential panel - Blood [facility] Work Phone: Comment on above: Expected: 05/31/2024, Expires: Start: 05-31-2024 End: 08-30-2024 Comprehensive metabolic 2000 panel - Serum or Plasma [facility] Comment on above: Expected: 05/31/2024, Expires: Start: 05-31-2024 End: 08-30-2024 Hemoglobin A1c in Blood [facility] Comment on above: Expected: 05/31/2024, Expires: Start: 05-31-2024 End: 08-30-2024 LIPID PANEL, NONFASTING [facility] Comment on above: Expected: 05/31/2024, Expires: Start: 05-31-2024 End: 05-31-2024 Patient encounter procedure 05/31/2024 2:00 PM EST [facility] [address] [place] [address] Christopher Bonilla MD [address] [place] [address] 6 month f/u [facility] Comment on above: 6 month f/u Start: 05-23-2024 End: 05-23-2024 Anticoagulant drug monitoring 05/23/2024 2:00 PM EST Anticoagulation Visit Coumadin [facility] [address] [place] [address] Wstr, Anticoag [facility] [place] [address] [place] [address] inr [facility]mad[facility] Comment on above: inr Start: 05-10-2024 Annual PCP Team Chronic Disease Visit Annual PCP Team Chronic Disease Visit [facility] Start: 05-10-2024 BP Controlled (<130/80) BP Controlled (<130/80) [facility] Start: 05-10-2024 Creatinine measurement Serum Creatinine [facility] Start: 05-10-2024 RSV Vaccine (1 - 1-dose 60+ series) RSV Vaccine (1 - 1-dose 60+ series) [facility] Comment on above: Postponed from 2005 (Declined at t his time) Start: 05-10-2024 RSV Vaccine (1 - 1-dose 75+ series) RSV Vaccine (1 - 1-dose 75+ series) [facility] Comment on above: Postponed from 2020 (Declined at t his time) Start: 05-10-2024 Serum Creatinine Serum Creatinine [facility] Start: 04-25-2024 End: 04-25-2024 Anticoagulant drug monitoring 04/25/2024 2:00 PM EST Antico[facility] [address] [facility] [place] [address] Wstr, Anticoag [facility] [address] [place] [address] inr [facility] Comment on above: inr Start: 04-02-2024 DIABETES SCREEN DIABETES SCREEN [facility] Start: 03-28-2024 End: 03-28-2024 Anticoagulant drug monitoring 03/28/2024 2:00 PM EDT Anticoagulation Visit [facility] [address] [facility] [place] [address] Wstr, Anticoag [facility] [address] [place] [address] inr [facility] Comment on above: inr Start: 03-26-2024 End: 03-26-2024 Anticoagulant drug monitoring 03/26/2024 1:45 PM EDT Anticoagulation Visit [facility] [address] [place] [address] Wstr, Anticoag [facility] [address] [place] [address] inr [facility] Comment on above: inr Start: 03-12-2024 End: 03-12-2024 Anticoagulant drug monitoring 03/12/2024 2:15 PM EDT Anticoagulation Visit [facility] [address] [place] [address] Wstr, Anticoag [facility] [address] [place] [address] inr [facility] Comment on above: inr Start: 03-05-2024 End: 03-05-2024 Anticoagulant drug monitoring 03/05/2024 2:00 PM EDT Anticoagulation Visit [facility] [place] [address] [facility] [place] [address] Wstr, Anticoag [facility] [place] [address] [place] [address] inr [facility] Comment on above: inr Start: 02-22-2024 End: 02-22-2024 Anticoagulant drug monitoring 02/22/2024 2:00 PM EDT Anticoagulation Visit [facility] [address] [facility] [place] [address] Wstr, Anticoag [facility] [place] [address] [place] [address] inr [facility] Comment on above: inr Start: 02-04-2024 Covid-19 Vaccine ( season) Covid-19 Vaccine ( season) [facility] Start: 02-04-2024 Covid-19 Vaccine ( season) Covid-19 Vaccine ( season) [facility] Start: 02-04-2024 Influenza vaccination [facility] Start: 01-21-2024 HEMOGLOBIN/HEMATOCRIT HEMOGLOBIN/HEMATOCRIT [facility] Start: 01-18-2024 End: 01-18-2024 Anticoagulant drug monitoring 01/18/2024 2:00 PM EDT Anticoagulation [facility] [place] [address] [facility] [place] [address] Wstr, Anticoag [facility] [place] [address] [place] [address] inr [facility] Comment on above: inr Start: 12-24-2023 HEMOGLOBIN/HEMATOCRIT HEMOGLOBIN/HEMATOCRIT [facility] Start: 12-21-2023 End: 12-21-2023 Anticoagulant drug monitoring 12/21/2023 2:00 PM EDT Anticoagulation Visit [facility] [address] [facility] [place] [address] Wstr, Anticoag [facility] [place] [address] [place] [address] inr [facility] [place] Comment on above: inr Start: 12-03-2023 Influenza vaccination Influenza Vaccine (#1) [facility] Comment on above: Postponed from 02/03/2023 (Declined at t his time) Start: 11-30-2023 End: 11-30-2023 Anticoagulant drug monitoring 11/30/2023 2:00 PM EDT Anticoagulation Visit [facility] [place] [address] [facility] [place] [address] [facility] [place] [address] [place] [address] inr [facility] Comment on above: inr Start: 11-30-2023 End: 02-29-2024 Basic metabolic 2000 panel - Serum or Plasma [facility] Work Phone: Comment on above: Expected: 11/30/2023, Expires: Start: 11-30-2023 End: 02-29-2024 CBC W Auto Differential panel - Blood [facility] Comment on above: Expected: 11/30/2023, Expires: Start: 11-30-2023 End: 02-29-2024 Hemoglobin A1c in Blood [facility] Comment on above: Expected: 11/30/2023, Expires: Start: 11-30-2023 End: 02-29-2024 Magnesium [Mass/volume] in Serum or Plasma [facility] Comment on above: Expected: 11/30/2023, Expires: Start: 11-30-2023 End: 02-29-2024 Microalbumin/Creatinine [Mass Ratio] in Urine [facility] Comment on above: Expected: 11/30/2023, Expires: Start: 11-30-2023 End: 02-29-2024 PT panel - Platelet poor plasma by Coagulation assay PROTHROMBIN TIME Lab Routine Paroxysmal atrial fibrillation (HCC) Expected: 11/30/2023, Expires: 02/29/2024 [facility] Comment on above: Expected: 11/30/2023, Expires: Start: 11-14-2023 End: 11-14-2023 Patient encounter procedure 11/14/2023 1:40 PM EDT Office Visit [facility] [address] [facility] [place] [address] Christopher Bonilla MD [address] [place] [address] 6 mth f/u [facility] Comment on above: 6 mth f/u [facility] Start: 11-09-2023 ANNUAL PCP TEAM CHRONIC DISEASE VISIT ANNUAL PCP TEAM CHRONIC DISEASE VISIT [facility] Start: 11-09-2023 BP CONTROLLED (<130/80) BP CONTROLLED (<130/80) [facility] Start: 11-09-2023 COVID-19 VACCINE (#1) COVID-19 VACCINE (#1) [facility] Comment on above: Postponed from 03/23/1946 (Declined at t his time) Start: 11-09-2023 HEMOGLOBIN/HEMATOCRIT HEMOGLOBIN/HEMATOCRIT [facility] Start: 11-09-2023 SHINGRIX VACCINE (1 of 2) SHINGRIX VACCINE (1 of 2) [facility] Comment on above: Postponed from 09/22/1995 (Declined at t his time) Start: 11-02-2023 End: 11-02-2023 Anticoagulant drug monitoring 11/02/2023 1:15 PM EDT Anticoagulation Visit [facility] [place] [address] [facility] [place] [address] Wstr, Anticoag [facility] [place] [address] [place] [address] inr [facility] Comment on above: inr Start: 10-19-2023 End: 10-19-2023 Anticoagulant drug monitoring 10/19/2023 1:30 PM EDT Antico[facility] [address] [place] [address] Wstr, [facility] [place] [address] [place] [address] inr [facility] Comment on above: inr Start: 10-05-2023 End: 10-05-2023 Anticoagulant drug monitoring 10/05/2023 1:30 PM EDT Anticoagulation Visit [facility] [place] [address] [place] [address] Wstr, [facility] [place] [address] [place] [address] inr [facility] [place] Comment on above: inr Start: 09-20-2023 ANNUAL PCP TEAM CHRONIC DISEASE VISIT ANNUAL PCP TEAM CHRONIC DISEASE VISIT [facility] Start: 09-20-2023 HEMOGLOBIN/HEMATOCRIT HEMOGLOBIN/HEMATOCRIT [facility] Start: 09-20-2023 SERUM CREATININE SERUM CREATININE [facility] Start: 09-02-2023 ANNUAL PCP TEAM CHRONIC DISEASE VISIT ANNUAL PCP TEAM CHRONIC DISEASE VISIT [facility] Start: 09-02-2023 BP CONTROLLED (<130/80) BP CONTROLLED (<130/80) [facility] Start: 07-28-2023 ANNUAL PCP TEAM CHRONIC DISEASE VISIT ANNUAL PCP TEAM CHRONIC DISEASE VISIT [facility] Start: 07-28-2023 BP CONTROLLED (<130/80) BP CONTROLLED (<130/80) [facility] Start: 07-14-2023 ANNUAL PCP TEAM CHRONIC DISEASE VISIT ANNUAL PCP TEAM CHRONIC DISEASE VISIT [facility] Start: 07-14-2023 BP CONTROLLED (<130/80) BP CONTROLLED (<130/80) [facility] Start: 06-05-2023 Advance Directive Discussion Advance Directive Discussion [facility] Start: 06-05-2023 Behavioral Health Screening Behavioral Health Screening [facility] Start: 06-05-2023 Depression Assessment Depression Assessment [facility] Start: 05-10-2023 End: 08-09-2023 Comprehensive metabolic 2000 panel - Serum or Plasma [facility] Work Phone: Comment on above: Expected: 05/10/2023, Expires: Start: 05-10-2023 End: 08-09-2023 Hemoglobin A1c in Blood [facility] Work Phone: Comment on above: Expected: 05/10/2023, Expires: 4 Start: 05-10-2023 End: 08-09-2023 Iron and Iron binding capacity panel - Serum or Plasma [facility] Work Phone: Comment on above: Expected: 05/10/2023, Expires: 4 Start: 05-10-2023 End: 08-09-2023 LIPID PANEL, NONFASTING [facility] Work Phone: Comment on above: Expected: 05/10/2023, Expires: 4 Start: 05-10-2023 End: 08-09-2023 Thyrotropin [Units/volume] in Serum or Plasma [facility] Work Phone: Comment on above: Expected: 05/10/2023, Expires: 4 Start: 05-02-2023 End: 08-01-2023 PT panel - Platelet poor plasma by Coagulation assay PROTHROMBIN TIME/PT Lab STAT Coagulopathy (HCC) Expected: 05/02/2023, Expires: 08/01/2023 [facility] Work Phone: Comment on above: Expected: 05/02/2023, Expires: Start: 04-19-2023 ANNUAL PCP TEAM CHRONIC DISEASE VISIT ANNUAL PCP TEAM CHRONIC DISEASE VISIT [facility] Start: 04-19-2023 BP CONTROLLED (<130/80) BP CONTROLLED (<130/80) [facility] Start: 03-15-2023 ANNUAL PCP TEAM CHRONIC DISEASE VISIT ANNUAL PCP TEAM CHRONIC DISEASE VISIT [facility] Start: 03-15-2023 BP CONTROLLED (<130/80) BP CONTROLLED (<130/80) [facility] Start: 03-02-2023 BP CONTROLLED (<130/80) BP CONTROLLED (<130/80) [facility] Start: 02-24-2023 BP CONTROLLED (<130/80) BP CONTROLLED (<130/80) [facility] Start: 02-18-2023 BP CONTROLLED (<130/80) BP CONTROLLED (<130/80) [facility] Start: 02-17-2023 BP CONTROLLED (<130/80) BP CONTROLLED (<130/80) [facility] in Start: 02-15-2023 BP CONTROLLED (<130/80) BP CONTROLLED (<130/80) [facility] Start: 02-14-2023 Egd transoral biopsy single/multiple EGD BIOPSY SINGLE/MULTIPLE [facility] Start: 02-14-2023 Patient discharge [facility] Start: 02-11-2023 ANNUAL PCP TEAM CHRONIC DISEASE VISIT ANNUAL PCP TEAM CHRONIC DISEASE VISIT [facility] Start: 02-10-2023 BP CONTROLLED (<130/80) BP CONTROLLED (<130/80) [facility] Start: 02-10-2023 End: 04-12-2023 PT panel - Platelet poor plasma by Coagulation assay PROTHROMBIN TIME/PT Lab Routine Chronic anticoagulation Expected: 02/10/2023, Expires: 04/12/2023 [facility] Work Phone: Comment on above: Expected: 02/10/2023, Expires: 3 Start: 02-09-2023 BP CONTROLLED (<130/80) BP CONTROLLED (<130/80) [facility] Start: 02-03-2023 Covid-19 Vaccine ( season) Covid-19 Vaccine ( season) [facility] Start: 02-03-2023 Influenza vaccination [facility] Start: 01-14-2023 Adult depression screening assessment DEPRESSION SCREENING [facility] Start: 01-14-2023 ANNUAL PCP TEAM CHRONIC DISEASE VISIT ANNUAL PCP TEAM CHRONIC DISEASE VISIT [facility] Start: 01-14-2023 BP CONTROLLED (<130/80) BP CONTROLLED (<130/80) [facility] Start: 01-13-2023 End: 03-15-2023 Herpes simplex virus+Varicella zoster virus DNA [Presence] in Unspecified specimen by KASHIF with probe detection [facility] Work Phone: Comment on above: Expected: 01/13/2023, Expires: 3 Start: 12-02-2022 Influenza vaccination INFLUENZA (#1) [facility] Comment on above: Postponed from 02/03/2022 (Declined at t his time) Start: 11-08-2022 End: 01-08-2023 Ferritin [Mass/volume] in Serum or Plasma [facility] [facility] Work Phone: Comment on above: Expected: 11/08/2022, Expires: 3 Start: 11-08-2022 End: 01-08-2023 Hemoglobin A1c in Blood [facility] Work Phone: Comment on above: Expected: 11/08/2022, Expires: 3 Start: 11-08-2022 End: 01-08-2023 Iron and Iron binding capacity panel - Serum or Plasma [facility] Work Phone: Comment on above: Expected: 11/08/2022, Expires: 3 Start: 10-04-2022 ANNUAL PCP TEAM CHRONIC DISEASE VISIT ANNUAL PCP TEAM CHRONIC DISEASE VISIT [facility] Start: 10-04-2022 BP CONTROLLED (<130/80) BP CONTROLLED (<130/80) [facility] in Start: 2022 End: 11-21-2022 ALK PHOS ISOENZYM BL ALK PHOS ISOENZYM BL Lab Routine Elevated alkaline phosphatase level Expected: 2022, Expires: 11/21/2022 [facility] Work Phone: Comment on above: Expected: 2022, Expires: 3 Start: 09-19-2022 End: 11-19-2022 C reactive protein [Mass/volume] in Serum or Plasma [facility] Work Phone: Comment on above: Expected: 09/19/2022, Expires: 3 Start: 09-19-2022 End: 11-19-2022 Comprehensive metabolic 2000 panel - Serum or Plasma [facility] Work Phone: Comment on above: Expected: 09/19/2022, Expires: 3 Start: 09-19-2022 End: 11-19-2022 Lipase [Enzymatic activity/volume] in Serum or Plasma [facility] Work Phone: Comment on above: Expected: 09/19/2022, Expires: 3 Start: 09-19-2022 End: 11-19-2022 URINALYSIS, DIPSTICK ONLY URINALYSIS, DIPSTICK ONLY Lab Routine Abdominal swelling, generalized Epigastric pain Expected: 09/19/2022, Expires: 11/19/2022 [facility] Work Phone: Comment on above: Expected: 09/19/2022, Expires: 3 Start: 08-25-2022 ANNUAL PCP TEAM CHRONIC DISEASE VISIT ANNUAL PCP TEAM CHRONIC DISEASE VISIT [facility] Start: 08-25-2022 BP CONTROLLED (<130/80) BP CONTROLLED (<130/80) [facility] in Start: 06-05-2022 ADVANCE DIRECTIVE DISCUSSION ADVANCE DIRECTIVE DISCUSSION [facility] Start: 06-05-2022 DEPRESSION ASSESSMENT DEPRESSION ASSESSMENT [facility] Start: 05-11-2022 Adult depression screening assessment DEPRESSION SCREENING [facility] Start: 05-11-2022 COVID-19 VACCINE (#1) COVID-19 VACCINE (#1) [facility] Comment on above: Postponed from 1950 (Declined at t his time) Postponed from 03/23 (Declined at this time) Start: 05-11-2022 COVID-19 VACCINE (1) COVID-19 VACCINE (1) [facility] Comment on above: Postponed from 1950 (Declined at t his time) Start: 05-11-2022 SHINGRIX VACCINE (1 of 2) SHINGRIX VACCINE (1 of 2) [facility] Comment on above: Postponed from 09/22/1995 (Declined at t his time) Start: 04-20-2022 End: 06-20-2022 Basic metabolic 2000 panel - Serum or Plasma BASIC METABOLIC PNL Lab Routine Renal insufficiency Expected: 04/20/2022, Expires: 06/20/2022 [facility] Work Phone: Comment on above: Expected: 04/20/2022, Expires: 3 Start: 04-19-2022 End: 04-19-2023 CBC W Auto Differential panel - Blood [facility] Work Phone: Comment on above: Expected: 04/19/2022, Expires: 3 Start: 04-19-2022 End: 04-19-2023 Comprehensive metabolic 2000 panel - Serum or Plasma [facility] Work Phone: Comment on above: Expected: 04/19/2022, Expires: 3 Start: 04-19-2022 End: 06-19-2022 Hemoglobin A1c in Blood [facility] Work Phone: Comment on above: Expected: 04/19/2022, Expires: 3 Start: 04-19-2022 End: 06-19-2022 LIPID PANEL, NONFASTING [facility] Work Phone: Comment on above: Expected: 04/19/2022, Expires: 3 Start: 04-06-2022 End: 06-06-2022 Hemoglobin A1c/Hemoglobin.total in Blood HGB A1C Lab Routine Prediabetes Expected: 04/06/2022, Expires: 06/06/2022 [facility] Work Phone: Comment on above: Expected: 04/06/2022, Expires: 3 Start: 03-16-2022 End: 09-14-2022 CBC W Auto Differential panel - Blood CBC + DIFF Lab Routine Chronic anticoagulation Expected: 03/16/2022, Expires: 09/14/2022 [facility] Work Phone: Comment on above: Expected: 03/16/2022, Expires: 3 Start: 03-16-2022 End: 09-14-2022 Comprehensive metabolic 2000 panel - Serum or Plasma COMP METABOLIC PANEL Lab Routine Renal insufficiency Prediabetes Hypertension, essential Chronic anticoagulation Expected: 03/16/2022, Expires: 09/14/2022 [facility] Work Phone: Comment on above: Expected: 03/16/2022, Expires: 3 Start: 03-16-2022 End: 09-14-2022 Hemoglobin A1c in Blood HGB A1C Lab Routine Prediabetes Expected: 03/16/2022, Expires: 09/14/2022 [facility] Work Phone: Comment on above: Expected: 03/16/2022, Expires: 3 Start: 03-16-2022 End: 09-14-2022 Lipid 1996 panel - Serum or Plasma LIPID PANEL BASIC Lab Routine Hyperlipidemia, unspecified hyperlipidemia type Expected: 03/16/2022, Expires: 09/14/2022 [facility] Work Phone: Comment on above: Expected: 03/16/2022, Expires: 3 Start: 03-16-2022 End: 09-14-2022 Magnesium [Mass/volume] in Serum or Plasma MAGNESIUM BLD Lab Routine Gastroesophageal reflux disease, unspecified whether esophagitis present Expected: 03/16/2022, Expires: 09/14/2022 [facility] Work Phone: Comment on above: Expected: 03/16/2022, Expires: 3 Start: 02-23-2022 End: 04-25-2022 PT panel - Platelet poor plasma by Coagulation assay PROTHROMBIN TIME/PT Lab Routine Paroxysmal atrial fibrillation (HCC) Expected: 02/23/2022, Expires: 04/25/2022 [facility] Work Phone: Comment on above: Expected: 02/23/2022, Expires: 2 Start: 02-03-2022 Influenza vaccination [facility] Start: 02-03-2022 Prothrombin time [facility] Work Phone: Start: 02-02-2022 Prothrombin time [facility] Work Phone: Start: 02-01-2022 Prothrombin time [facility] Work Phone: Start: 01-31-2022 Patient discharge [facility] Work Phone: Start: 01-30-2022 Speech therapy assessment [facility] Work Phone: Start: 01-30-2022 [facility] Work Phone: Start: 01-28-2022 Consultation [facility] Work Phone: Start: 01-28-2022 Following clinical pathway protocol [facility] Work Phone: Start: 01-27-2022 [facility] Work Phone: Start: 01-27-2022 Drainage tube care management [facility] Work Phone: Start: 01-27-2022 Referral to service [facility] Work Phone: Start: 01-27-2022 Referral to general surgeon [facility] Work Phone: Start: 01-27-2022 [facility] Work Phone: Start: 01-27-2022 Consultation [facility] Work Phone: Start: 01-26-2022 Vital signs measurements [facility] Work Phone: Start: 01-26-2022 [facility] Work Phone: Start: 01-26-2022 Application of intermittent pneumatic compression device [facility] Work Phone: Start: 01-26-2022 Following clinical pathway protocol [facility] Work Phone: Start: 01-26-2022 Assessment of risk of venous thromboembolism [facility] Work Phone: Start: 01-26-2022 Catheterization of vein [facility] Work Phone: Start: 01-26-2022 Elevation of head of bed [facility] Work Phone: Start: 01-26-2022 Incentive spirometry [facility] Work Phone: Start: 01-26-2022 Inhalation therapy procedure [facility] Work Phone: Start: 01-26-2022 Insertion of catheter into peripheral vein [facility] Work Phone: Start: 01-26-2022 Measuring intake and output [facility] Work Phone: Start: 01-26-2022 Oxygen therapy [facility] Work Phone: Start: 01-26-2022 Patient education [facility] Work Phone: Start: 01-26-2022 Providing care according to standard [facility] Work Phone: Start: 01-26-2022 Provision of activity privileges [facility] Work Phone: Start: 01-26-2022 Referral to occupational therapist [facility] Work Phone: Start: 01-26-2022 Referral to service [facility] Work Phone: Start: 01-26-2022 End: 01-26-2022 [facility] Work Phone: Start: 01-26-2022 Admission procedure [facility] Work Phone: Start: 12-02-2021 Influenza vaccination INFLUENZA (#1) [facility] Comment on above: Postponed from 02/03/2021 (Declined at t his time) Start: 10-06-2021 End: 12-06-2021 Basic metabolic 2000 panel - Serum or Plasma BASIC METABOLIC PNL Lab Routine Renal insufficiency Prediabetes Expected: 10/06/2021, Expires: 12/06/2021 [facility] Work Phone: Comment on above: Expected: 10/06/2021, Expires: 2 Start: 10-06-2021 End: 12-06-2021 Hemoglobin A1c/Hemoglobin.total in Blood HGB A1C Lab Routine Renal insufficiency Prediabetes Expected: 10/06/2021, Expires: 12/06/2021 [facility] Work Phone: Comment on above: Expected: 10/06/2021, Expires: 2 Start: 10-04-2021 End: 12-04-2021 CBC W Auto Differential panel - Blood [facility] Work Phone: Comment on above: Expected: 10/04/2021, Expires: 2 Start: 10-04-2021 End: 12-04-2021 Comprehensive metabolic 2000 panel - Serum or Plasma [facility] Work Phone: Comment on above: Expected: 10/04/2021, Expires: 2 Start: 10-04-2021 End: 12-04-2021 Thyrotropin [Units/volume] in Serum or Plasma [facility] Work Phone: Comment on above: Expected: 10/04/2021, Expires: 2 Start: 09-20-2021 End: 11-20-2021 PT panel - Platelet poor plasma by Coagulation assay [facility] Work Phone: Comment on above: Expected: 09/20/2021, Expires: 2 Start: 06-05-2021 ADVANCE DIRECTIVE DISCUSSION ADVANCE DIRECTIVE DISCUSSION [facility] Start: 06-05-2021 DEPRESSION ASSESSMENT DEPRESSION ASSESSMENT [facility] Start: 2020 RSV Vaccine (1 - 1-dose 75+ series) RSV Vaccine (1 - 1-dose 75+ series) [facility] Start: 10-17-2019 Colonoscopy COLONOSCOPY [facility] Start: 10-17-2019 COLORECTAL CANCER SCREENING COLORECTAL CANCER SCREENING [facility] Start: 08-21-2012 FECAL OCCULT BLOOD FECAL OCCULT BLOOD [facility] Start: 2005 RSV Vaccine (1 - 1-dose 60+ series) RSV Vaccine (1 - 1-dose 60+ series) [facility] Start: 09-22-1995 SHINGRIX VACCINE (1 of 2) SHINGRIX VACCINE (1 of 2) [facility] Start: 1990 COLOGUARD (FIT-DNA) COLOGUARD (FIT-DNA) [facility] Start: [address] COLONOGRAPHY [facility] Start: 1990 SIGMOIDOSCOPY SIGMOIDOSCOPY [facility] Start: 09-22-1963 BP CONTROLLED (<130/80) BP CONTROLLED (<130/80) [facility] Start: 03-23-1946 COVID-19 VACCINE (#1) COVID-19 VACCINE (#1) [facility] 24 Hour ECG [facility] Basic metabolic 2008 panel with ionized calcium - Serum or Plasma [facility] End: 11-04-2023 Bone &/joint imaging whole body NM BONE WHOLE BODY Radiology Routine Elevated alkaline phosphatase level 1 Occurrences starting 10/05/2022 until 11/04/2023 [facility] Work Phone: Comment on above: 1 Occurrences starting 10/05/2022 until 11/04/2023 Cytology report of B axel fluid Cyto stain [facility] Work Phone: End: 03-15-2023 INR in Platelet poor plasma by Coagulation assay INR (POC) Lab Routine Atrial fibrillation, chronic (HCC) Once per month for 99 Occurrences starting 03/15/2022 until 03/15/2023 [facility] Work Phone: Comment on above: Once per month for 99 Occurrences starti ng 03/15/2022 until 03/15/2023 End: 03-30-2024 INR in Platelet poor plasma by Coagulation assay INR (POC) Lab Routine Atrial fibrillation, chronic (HCC) Once per month for 99 Occurrences starting 03/30/2023 until 03/30/2024 [facility] Work Phone: Comment on above: Once per month for 99 Occurrences starti ng 03/30/2023 until 03/30/2024 End: 04-25-2025 INR in Platelet poor plasma by Coagulation assay INR (POC) Lab Routine Atrial fibrillation, chronic (HCC) Once per month for 99 Occurrences starting 04/25/2024 until 04/25/2025 [facility] Work Phone: Comment on above: Once per month for 99 Occurrences starti ng 04/25/2024 until 04/25/2025 Measurement of respiratory function [facility] Work Phone: Natriuretic peptide. B prohormone N-Terminal [Mass/volume] in Serum or Plasma [facility] Patient Education [facility] Work Phone: Patient referral [facility] Work Phone: Procalcitonin [Mass/volume] in Serum or Plasma by Immunoassay [facility] Prothrombin time [facility] End: 03-15-2023 PT panel - Platelet poor plasma by Coagulation assay PROTHROMBIN TIME/PT Lab STAT Atrial fibrillation, chronic (HCC) Once per month for 99 Occurrences starting 03/15/2022 until 03/15/2023 [facility] Work Phone: Comment on above: Once per month for 99 Occurrences starti ng 03/15/2022 until 03/15/2023 End: 03-29-2024 PT panel - Platelet poor plasma by Coagulation assay PROTHROMBIN TIME/PT Lab STAT Atrial fibrillation, chronic (HCC) Once per month for 99 Occurrences starting 03/30/2023 until 03/29/2024 [facility] Work Phone: Comment on above: Once per month for 99 Occurrences starti ng 03/30/2023 until 03/29/2024 End: 04-25-2025 PT panel - Platelet poor plasma by Coagulation assay PROTHROMBIN TIME Lab STAT Atrial fibrillation, chronic (HCC) Once per month for 99 Occurrences starting 04/25/2024 until 04/25/2025 [facility] Comment on above: Once per month for 99 Occurrences starti ng 04/25/2024 until 04/25/2025 End: 10-01-2023 US ABDOMEN COMPLETE US ABDOMEN COMPLETE Radiology Routine Renal mass Liver mass 1 Occurrences starting 09/01/2022 until 10/01/2023 [facility] Work Phone: Comment on above: 1 Occurrences starting 09/01/2022 until 10/01/2023 End: 05-19-2023 Us soft tissue head & neck real time imge docm US THYROID/PARATHYROID Radiology Routine Thyroid nodule 1 Occurrences starting 04/19/2022 until 05/19/2023 [facility] Work Phone: Comment on above: 1 Occurrences starting 04/19/2022 until 05/19/2023 End: 10-19-2023 XR ABDOMEN 1V SUPINE XR ABDOMEN 1V SUPINE Radiology Routine Abdominal swelling, generalized Epigastric pain 1 Occurrences starting 09/19/2022 until 10/19/2023 [facility] Work Phone: Comment on above: 1 Occurrences starting 09/19/2022 until 10/19/2023 XR ABDOMEN 1V SUPINE XR ABDOMEN 1V SUPINE Radiology Routine Abdominal swelling, generalized Epigastric pain 09/19/2022 3:21 PM EDT [facility] Work Phone: XR Chest PA and Lateral Woos [facility] Work Phone: [facility] c [facility] c [facility] Immunizations Immunization Date Immunization Notes Care Provider Fa cili 05-08-2018 influenza virus vacc ine, unspecified formulation Christopher Bonilla MD Work Phone: [facility] 07-20-2015 pneumococcal conjuga te vaccine, 13 valent Christopher Bonilla MD Work Phone: [facility] 07-20-2015 tetanus toxoid, redu perlita diphtheria toxoid, and acellular pertussis vaccine, adsorbed Christopher Bonilla MD Work Phone: [facility] 04-16-2014 influenza, high dose seasonal, preservative-free Christopher Bonilla MD Work Phone: [facility] 08-15-2011 pneumococcal polysaccharide vaccine, 23 valent Christopher Bonilla MD Work Phone: [facility] Payers Date Payer Category Payer Medicaid [id number] 2024 Unknown [id number] 2024 Self-pay [id number] 2022 Medicaid [id number] 2022 Medicare (Managed Care) 1.2. [id number] 2022 Private Health Insurance [id number] 2021 Medicare HUMANA MEDICARE HUMANA MEDICARE PPO [id number] 2021-Present [phone] [facility] [id number] [place] [address] PPO [id number] 2016 Medicare [id number] 2010 Medicare [id number] 1945 Unknown [id number] 27 Medicare [id number] Unknown [id number] 2.16.840.1.108023.3.579.2.4 62 Unknown [id number] 2.16.840.1.981144.3.579.2.4 62 Unknown [id number] 2.16.840.1.048121.3.579.2.4 62 Unknown [id number] 2.16.840.1.746201.3.579.2.4 62 Unknown [id number] 2.16.840.1.644053.3.579.2.4 62 Unknown [id number] 2.16.840.1.024803.3.579.2.4 62 Unknown [id number] 2.16.840.1.624672.3.579.2.4 62 Unknown [id number] 2.16.840.1.906293.3.579.2.4 62 Unknown [id number] 2.16.840.1.714713.3.579.2.4 62 Unknown [id number] 2.16.840.1.143026.3.579.2.4 62 Unknown [id number] 2.16.840.1.448324.3.579.2.4 62 Unknown [id number] 2.16.840.1.961183.3.579.2.4 62 Unknown [id number] 2.16.840.1.961877.3.579.2.4 62 Unknown [id number] 2.16.840.1.992244.3.579.2.4 62 Unknown [id number] 2.16.840.1.880526.3.579.2.4 62 Unknown [id number] 2.16.840.1.018842.3.579.2.4 62 Unknown [id number] 2.16.840.1.052247.3.579.2.4 62 Unknown [id number] 2.16.840.1.422298.3.579.2.4 62 Unknown [id number] 2.16.840.1.670221.3.579.2.4 62 Unknown [id number] 2.16.840.1.330331.3.579.2.4 62 Unknown [id number] [id number] 62 Social History Date Type Detail Facility Start: 01-14-2022 End: 01-22-2025 Tobacco smoking status NHIS Never smoked tobacco [facility] Work Phone: Start: 08-25-2021 End: 12-13-2024 Alcohol intake Current non-drinker of alcohol (finding) [facility] Start: 1945 Sex Assigned At Not on file C [facility] Start: 05-19-2021 End: 04-19-2022 Exposure to SARS-CoV-2 (event) Not sure [facility] Start: 08-15-2021 End: 06-15-2023 Tobacco smoking status NHIS Unknown if ever smoked [facility] Start: 06-01-2020 None [facility] Start: 06-01-2020 With Family [facility] Start: 05-24-2019 Non-smoker [facility] Start: 1945 Sex Assigned At Female [facility] Start: 01-19-2011 End: 01-14-2022 Tobacco use and exposure Smokeless tobacco non-user [facility] Start: 01-14-2022 Tobacco Comment Spouse smoked cigars in home until about 2003. [facility] Start: 02-02-2022 History SDOH Financial 5 [facility] Start: 02-02-2022 History SDOH Food Worry 1 [facility] Start: 02-02-2022 History SDOH Transpo rt Med 2 [facility] Start: 10-13-2022 End: 11-08-2022 History of Social function [facility] Start: 10-13-2022 End: 11-08-2022 Tobacco use panel [facility] Start: 05-06-2012 How hard is it for y ou to pay for the very basics like food, housing, medical care, and heating Not hard at all [facility] (I/We) worried wheashutosh er (my/our) food would run out before (I/we) got money to buy more. Never true [facility] In the past 12 month s, was there a time when you were not able to pay the mortgage or rent on time? No [facility] Start: 04-04-2020 End: 05-04-2020 Exposure to SARS-CoV-2 (event) Yes [facility] How often to you hav e a drink containing alcohol? Never [facility] Goals Date Patient Goal Desired Activity /State Personal health goal Comment on above: Formatting of this n ote might be different from the original. Maintain current health status. Personal health goal Comment on above: Formatting of this n ote might be different from the original. Patient has the following Chronic Obstructive Pulmonary Disease goals: Pulmonology visit annually Patient will meet these goals by 03/15/24 (describe interventions done by P[facility]) Formatting of this n ote might be different from the original. Patient has the following Congestive Heart Failure Goals: Two Cardiology Visits annually Patient will meet these goals by 03/28 (describe interventions done by P[facility]) Formatting of this n ote might be different from the original. Patient has the following Chronic Kidney Disease goals: Two PCP visits annually Patient will meet these goals by: 03/15/2024 (describe interventions done by PCC) Comment on above: Formatting of this n ote might be different from the original. Comment on above: Formatting of this n ote might be different from the original. Maintain current health status. Functional Status Date Assessment Result Facility 01-25-2025 Functional status Ambulates [facility] Work Phone: 12-13-2024 Total score [AUDIT-C] 0 12/14/19 25 2:16 PM EDT Debbie Long MA [facility] 01-31-2022 Functional status Ambulates;Beds al Commode [facility] Work Phone: 09-16-2021 Functional status Ambulates [facility] Work Phone: 07-22-2021 Functional status Ambulates [facility] Work Phone: 07-09-2021 Functional status Ambulates [facility] Work Phone: 07-08-2021 Functional status Assistive Devices None [facility] Work Phone: 06-23-2021 Functional status Ambulates [facility] Work Phone: 06-22-2021 Functional status None [facility] Work Phone: 12-11-2014 Are you deaf, or do you have serious difficulty hearing No 12/11/2014 1:20 PM EDT Jason Max (Rn)(Hist), RN No [facility] 12-11-2014 Are you blind, or do you have serious difficulty seeing, even when wearing glasses No 12/11/2014 1:20 PM EDT Jason Max (Rn)(Hist), RN No [facility] 12-11-2014 Do you have serious difficulty walking or climbing stairs No 12/11/2014 1:20 PM EDT Jason Max (Rn)(Hist), RN No [facility] 12-11-2014 Do you have difficul ty dressing or bathing No 12/11/2014 1:20 PM EDT Jason Max (Rn)(Hist), RN No [facility] 12-11-2014 Because of a physica l, mental, or emotional condition, do you have difficulty doing errands alone such as visiting a physician's office or shopping No 12/11/2014 1:20 PM EDT Jason Max (Rn)(Hist), RN No [facility] Mental Status Date Assessment Result Facility 01-25-2025 Cognitive function Voice/Name [facility] Work Phone: 02-14-2023 Cognitive function Voice/Name;Touch/Shaki ng [facility] Work Phone: 01-31-2022 Cognitive function Demonstrates ability to follow instructions/comprehend [facility] Work Phone: 01-31-2022 Cognitive function Voice/Name [facility] Work Phone: 01-26-2022 Cognitive function Level Of Cons ciousness Awake;Alert;Appropriate;Fol lows Commands [facility] Work Phone: 09-16-2021 Cognitive function Voice/Name [facility] Work Phone: 07-22-2021 Cognitive function Voice/Name [facility] Work Phone: 07-16-2021 Cognitive function Level Of Cons ciousness Awake;Alert;Appropriate;Fol lows Commands [facility] Work Phone: 07-09-2021 Cognitive function Level Of Cons ciousness Alert;Appropriate;Follows Commands [facility] Work Phone: 07-09-2021 Cognitive function Voice/Name [facility] Work Phone: 06-23-2021 Cognitive function Voice/Name [facility] Work Phone: 06-22-2021 Cognitive function Level Of Cons ciousness Awake;Alert;Appropriate;Fol lows Commands [facility] Work Phone: 12-11-2014 Because of a physica l, mental, or emotional condition, do you have serious difficulty concentrating, remembering, or making decisions No 12/11/2014 1:20 PM EDT Jason Max (Rn)(Hist), RN No [facility] Clinical Notes 03-23-2020 to 04-08-2025 Telephone Encounter - Alma Delia Doyle RN - 02/18/2025 1:43 PM EDTTelephone Encounter - Alma Delia Doyle RN - 02/18/2025 1:43 PM EDTTelephone Encounter - Christopher Bonilla MD - 02/18/2025 1:27 PM EDT Note Date & Type Note Facility 04-08-2025 Note [facility] 03-04-2025 Progress note [facility] 02-18-2025 Telephone encounter Note [facility] Nurse Smith, given message below. Message also given to patient by this nurse. Alma Delia Doyle RN [facility] 02-18-2025 Miscellaneous Notes [facility] Nurse Mtz, given message below. Message also given to patient by this nurse. Alma Delia Doyle RN Keep the appt for inr Hold today and tomorrow and resume 2 mg a day. Recheck the Smith, [facility] Nurse calling. Pt had INR scheduled for 02/21 at [facility]. [facility] was able to complete for patient at her home today instead. Last INR: INR 4.0 02/18/2025 Current dose of coumadin is: 2mg Mon,Wed and 3mg all other days. Last date of dose change: 03/05/2024. Previous INR (date and result): 2.6 on 01/16/25 patient had inr completed 02/18/25 by [facility] Nurse patients inr is 4.0 (patients inr range is 2.0-3.0) patient is currently taking 2mg Mon,Wed and 3mg all other days patients last dose change was on 03/05/24 due to a high level of 3.4 (dose at that time was 2mg Mon and 3mg all other days) 1) Please call [facility] Nurse with orders. 2) Please call patient with orders also, Note: She is [place]. 3) Does provider want pt to keep [facility] appt for INR on 02/21, or change? Alma Delia Doyle RN documented in this encounter [facility] 02-18-2025 Telephone encounter Note [facility] Nurse Smith, given message below. Message also given to patient by this nurse. Alma Delia Doyle RN [facility] 02-18-2025 Miscellaneous Notes [facility] Nurse Mtz, given message below. Message also given to patient by this nurse. Alma Delia Doyle RN Check hr when there for next visit and see what it is. If continues to be high, need to notify her hand inserter operator. [facility] Nurse Smith calling with the following updates: 1) Smith reports pt had resting heart rate of [...] no new changes are made by PCP. Alma Delia Doyle RN documented in this encounter [facility] 02-18-2025 Telephone encounter Note Keep the 19th appt for inr Hold today and tomorrow and resume 2 mg a day. Recheck the 19th [facility] 02-18-2025 Telephone encounter Note Check hr when there for next visit and see what it is. If continues to be high, need to notify her hand inserter operator. [facility] 02-18-2025 Telephone encounter Note [facility] Nurse Mtz calling with the following updates: 1) Smith reports pt had resting heart rate of [...] no new changes are made by PCP. Alma Delia Doyle RN [facility] 02-18-2025 Telephone encounter Note Smith [facility] Nurse calling. Pt had INR scheduled for 02/21 at [facility]. [facility] was able to complete for patient at her home today instead. Last INR: INR 4.0 02/18/2025 Current dose of coumadin is: 2mg Mon,Wed and 3mg all other days. Last date of dose change: 03/05/2024. Previous INR (date and result): 2.6 on 01/16/25 patient had inr completed 02/18/25 by [facility] Nurse patients inr is 4.0 (patients inr range is 2.0-3.0) patient is currently taking 2mg Mon,Wed and 3mg all other days patients last dose change was on 03/05/24 due to a high level of 3.4 (dose at that time was 2mg Mon and 3mg all other days) 1) Please call [facility] Nurse with orders. 2) Please call patient with orders also, Note: She is [place]. 3) Does provider want pt to keep [facility] appt for INR on 02/21, or change? Alma Delia Doyle RN [facility] 02-07-2025 Telephone encounter Note OV note faxed to [facility]. Isaiah Skinner LPN [facility] 02-07-2025 Miscellaneous Notes OV note faxed to [facility]. Isaiah Skinner LPN Can we please fax notes to Yanely at [facility] so that she is aware of hospitalization and recommended cardiology follow-up in 1-2 weeks. Dalila Jensen APRN.CNP documented in this encounter [facility] 02-07-2025 Telephone encounter Note Can we please fax notes to Yanely at [facility] so that she is aware of hospitalization and recommended cardiology follow-up in 1-2 weeks. Dalila Jensen APRN.CNP [facility] 02-05-2025 Telephone encounter Note See office notes. Dalila Jensen APRN.CNP [facility] Work Phone: 02-05-2025 Miscellaneous Notes See office notes. Dalila Jensen APRN.CNP Maggie, [facility] Nurse calling to give pt update. Pt [...] Call nurse Maggie for any orders, at [phone] Will send this update to provider Dalila, since she will be seeing pt tomorrow. Alma Delia Doyle, [place] documented in this encounter [facility] 02-05-2025 Instructions Dalila Jensen APRN.CNP - 02/05/2025 2:57 PM EDT Decrease the lasix to 40 mg in the morning and 20 mg in the afternoon/evening. Recheck in 1 week. documented in this encounter [facility] 02-05-2025 History of Presen t illness Narrative Images from the original note were not included. Transitional Care Management TCM Eligibility Documentation The following information was gathered during patient outreach 01/27/2025 Date of Outreach: Outreach Attempt 1: Contact Made Date of Discharge 01/25/2025 Provider Documentation Libra Ceja is a 79 year old female here today for a follow up from recent hospitalization. I have reviewed the patient's hospital course including discharge summary, discharge medications, and follow up needs with the patient and any family members present at today's visit. Recording using [employer] software for draft documentation of the visit was discussed with the patient/authorized sales representative trainee; all questions welcomed and answered. Patient/authorized sales representative trainee agreed to proceed Subjective Recent Hospitalization: - Libra Ceja presented to the ED with fever and chills; family members noted she was "shaking all over." - Diagnosed with fluid on the lungs and a COPD exacerbation. - Required supplemental oxygen due to hypoxemia; oxygen levels normalized prior to discharge. - Initiated on furosemide 40 mg BID and potassium supplementation during hospitalization. - Libra reports improved breathing since discharge. Dizziness: - Intermittent dizziness since discharge. - Occurs primarily when standing after sitting for a period; necessitates use of a walker for stability. - Libra describes dizziness as "off and on," with episodes varying in duration and intensity. - Denies dizziness when initially getting up in the morning. COPD: - Diagnosed with COPD; recent exacerbation during hospitalization. - Libra reports improved respiratory status since discharge. CHF: - Managed by hand inserter operator Yanely at [facility]. - Scheduled for a follow-up appointment in approximately 5 months. - Previously taking furosemide 40 mg daily; increased to 40 mg BID post-hospitalization. - Denies chest pain, palpitations, or peripheral edema. - Home health services providing ongoing care; physical therapy deemed unnecessary by therapist. Dietary Habits: - Libra reports good appetite and regular bowel movements. [...] kg (115 lb) SpO2 96% BMI 23.50 kg/m GENERAL: NAD, alert and oriented. SKIN: Unremarkable, [...] intact, normal gait, no involuntary motions. Assessment & Plan 1. Chronic obstructive pulmonary disease, unspecified [...] with position changes. - Follow-up with cardiology (Yanely at [facility]) was recommended within 1-2 weeks post-discharge; patient [...] as needed for worsening/no improvement. Dalila Jensen APRN.[employer] documented in this encounter [facility] 02-04-2025 Telephone encounter Note Maggie, [facility] Nurse calling to give pt update. Pt [...] Call nurse Maggie for any orders, at [phone] Will send this update to provider Dalila, since she will be seeing pt tomorrow. Alma Delia Doyle RN [facility] 01-31-2025 Telephone encounter Note Noted. Looks ok. [facility] 01-31-2025 Miscellaneous Notes Noted. Looks ok. Brandon from [facility] calls and states that patient's blood pressure was 108/72 and pulse was Irregular at 83 BPM. Deana Coleman RN Left message on Deisy [facility] Clinical School Health Assistant, voicemail to call back with pulse rate. Spoke with Libra. She said the nurse told her, her oxygen was perfect, her blood pressure was fine". She could not remember what her pulse was. She is feel better today. Debbie Long MA January 30, 2025 3:56 PM Noted. See what pulse rate is in am when they return Call to Marquise and he is already [...] starts to feel bad and she agrees. Are we able to have her check her hr now. If still above 100, needs to contact her heart dr. Marquise- PT- [facility] reporting POC: saw patient one time only for 1 visit for home safety eval. Reports pt's HR today on POX was 107 and on automatic BP cuff was 125. Pt reports she has a-fib. Reports patient has CHF & COPD but only had shortness of breath when going up stairs, no shortness of breath at rest. documented in this encounter [facility] 01-30-2025 Telephone encounter Note Brandon from [facility] calls and states that patient's blood pressure was 108/72 and pulse was Irregular at 83 BPM. Deana Coleman, RN [facility] 01-30-2025 Telephone encounter Note Left message on Deisy [facility] Clinical School Health Assistant, voicemail to call back with pulse rate. Spoke with Libra. She said the nurse told her, her oxygen was perfect, her blood pressure was fine". She could not remember what her pulse was. She is feel better today. Debbie Long MA January 30, 2025 3:56 PM [facility] 01-29-2025 Telephone encounter Note Noted. See what pulse rate is in am when they return T [facility] 01-29-2025 Telephone encounter Note Call to Marquise and he is already [...] starts to feel bad and she agrees. [facility] 01-29-2025 Telephone encounter Note Are we able to have her check her hr now. If still above 100, needs to contact her heart dr. [facility] 01-29-2025 Telephone encounter Note Marquise- PT- [facility] HH reporting POC: saw patient one time only for 1 visit for home safety eval. Reports pt's HR today on POX was 107 and on automatic BP cuff was 125. Pt reports she has a-fib. Reports patient has CHF & COPD but only had shortness of breath when going up stairs, no shortness of breath at rest. [facility] 01-28-2025 Telephone encounter Note Left detailed message for Jillian with HH. [facility] 01-28-2025 Miscellaneous Notes Left detailed message for Jillian with HH. Ok for below Jillian from [facility] Home Health calling to report patient pulse was 112, patient had not taken her Metoprolol dose yet, just woken up when nurse got there. Patient is taking her Gabapentin 100 mg at bedtime as needed to help her sleep. Requesting a Social Work referral, patient was asking for help with living will, getting a scale and blood pressure cuff. Plan of care for senior care will be 2 visits for one week, then 1 visit weekly for 3 weeks, working on CHF, afib teaching. Request refill on albuterol inhaler to go to [facility]. Pending rx to file. Please advise documented in this encounter [facility] 01-27-2025 Telephone encounter Note Ok for below [facility] 01-27-2025 History of Presen t illness Narrative TRANSITION CARE MANAGEMENT (TCM) INITIAL CONTACT Provider Action/FYI: Review Initial contact with patient post discharge, spoke to patient. Patient identified by name and . TCM Eligibility Documentation The following information was gathered during patient outreach 01/27/2025 Date of Outreach: Outreach Attempt 1: Contact Made Date of Discharge 01/25/2025 SUMMARY: -Pt discharged from [facility] on 01/25/25. -Follow up appointment on 01/29/25. -Medication review done yes. -Admitted for: CHF CONCERNS: CHF NEW MEDICATIONS: Yes, Pt did not remember but mentioned two were ordered. Pt thought one medication was steroids MEDS HELD/DISCONTINUED: No BRIEF HOSPITAL COURSE: documented in this encounter [facility] 01-27-2025 Telephone encounter Note Jillian from [facility] Home Health calling to report patient pulse was 112, patient had not taken her Metoprolol dose yet, just woken up when nurse got there. Patient is taking her Gabapentin 100 mg at bedtime as needed to help her sleep. Requesting a Social Work referral, patient was asking for help with living will, getting a scale and blood pressure cuff. Plan of care for senior care will be 2 visits for one week, then 1 visit weekly for 3 weeks, working on CHF, afib teaching. Request refill on albuterol inhaler to go to [facility]. Pending rx to file. Please advise [facility] 01-25-2025 Discharge summary [facility] 01-25-2025 Note [facility] 01-24-2025 Progress note Note Date/Time January 24, 2025 3:25pm [facility] Medical Records Department [address] [place] [address] Progress Note 01/24/25 0958 MR#: [id number] Acct: [id number] Name: LIBRA CEJA Rep #:[id number] : 1945 79 From: Christine Borges MD PCP: Dr. Christopher Bonilla MD Status:ADM I N Location: [place] [address] Subjective Subjective Patient seen and examined with her nurse by her bedside. SHe had no active compalnts. SHe was on 2L of oxygen. SHe apparently felt short of breath during the night and required the 2L of oxygen, and requested that it be left on this morning. Review of systems is otherwise negative. Objective Data Objective Data Vital Signs: Vital Signs Temp Pulse Resp BP Pulse Ox O2 Del Method O2 Flow Rate 97.9 F 68 16 133/56 H 95 Nasal Cannula 2 01/24/25 08:28 01/24/25 09:07 01/24/25 08:28 01/24/25 09:07 01/24/25 08:28 01/24/25 08:32 01/24/25 08:32 Oxygen Flow Rate (L/min) 2 Oxygen Delivery Method Nasal Cannula Weight: 116 lb 9.992 oz Body Mass Index (BMI) 22.7 Intake & Output: Intake and Output for Last 24 Hours 01/22/25 01/23/25 01/24/25 23:59 23:59 23:59 Intake Total 700 / 920 770 / 950 180 / 180 Output Total 850 / 1000 250 / 250 Balance 700 / 820 -80 / -50 -70 / -70 Lab / Micro Data 01/24/25 05:00 01/24/25 05:00 Labs: Laboratory Results - last 24 hr 01/23/25 16:04: PT 24.3 H, INR 2.1 01/24/25 05:00: WBC 17.2 H, RBC 4.86, Hgb 14.0, Hct 41.6, MCV 85.6, MCH 28.8, MCHC 33.7, RDW Std Deviation 45.5 H, RDW Coeff of Angelo 14.6, Plt Count 319, MPV 9.3, Immature Gran % (Auto) 0.800, Neut % (Auto) 92.7 H, Lymph % (Auto) 3.9 L, Tate % (Auto) 2.5, Eos % (Auto) 0.0, Baso % (Auto) 0.1, Absolute Neuts (auto) 15.9 H, Absolute Lymphs (auto) 0.67 L, Nucleated RBC % 0, Sodium 135, Potassium 4.3, Chloride 96 L, Carbon Dioxide 25.2, Anion Gap 14, BUN 21 H, Creatinine 0.76, Estim Creat Clear Calc 40.96 L, Est GFR (MDRD) Non-Af 80, BUN/Creatinine Ratio 28.0 H, Glucose 152 H, Calcium 8.7 01/24/25 08:38: PT 26.5 H, INR 2.4 Micro: Microbiology 01/22/25 16:04 Mucosa - Nose SARS-CoV-2, Influenza & RSV (PCR) - Final Physical Exam Const alert, oriented x3, no apparent distress and average body habitus Constitutional Narrative: frail General Appearance: cooperative and comfortable HEENT normocephalic, head/scalp atraumatic, hearing grossly normal bilaterally, nasal mucous membranes and turbinates normal, moist oral mucous membranes and oropharynx normal Eyes PERRL, EOMs intact bilaterally and conjunctivae normal Neck full ROM, supple and no JVD Lymph Lymphatic: no lymphedema noted Chest inspection of chest normal Resp normal respiratory effort and no use of accessory muscles Resp Narrative: mildly diminished breath sounds bibasally, bilateral few crackles. On 2L of oxygen by nasal canula Cardio regular rate, regular rhythm, S1 normal heart sound, S2 normal heart sound, no murmurs and peripheral pulses 2+ throughout GI normal to inspection, nondistended, normoactive bowel sounds, soft to palpation,non-tender and non-distended Back/Spine normal ROM Extremity normal to inspection, full ROM, normal capillary refill, no clubbing, cyanosis or edema, no calf tenderness and no pedal edema General Extremity: no tenderness to palpation of joints or extremities Skin no rashes or lesions noted General Skin Exam: no breakdown Neuro no focal motor deficits and no sensory deficits noted Motor Exam: general weakness Psych mental status grossly normal, thought process normal, cooperative and affect normal Mood & Affect: flat affect Assessment & Plan Assessment/Plan (1) CHF exacerbation: PLAN: Plan #Hypoxia due to Acute exacerbation of heart failure with preserved EF and acute on chronic COPD exacerbation. * on 2L of oxygen. Uusally on room air at home. * BNP was elevated at 4301. 2D echo from November 2023 showed EF of 60% and pulmonary systolic pressure of 80mmHg consistent with severe pulmonary hypertension * on IV lasix 40mg bid * monitor intake and output * on breathing treatment with bronchodilators * repeat 2D echo shows EF of 60% and no regional wall motion abnormalities with normal left ventricular systolic function and pulmonary artery systolic pressure of 80 mmHg which is similar to previous echo. * titrate oxygen to maintain sats >90% * CT abdomen and pelvis showed small right pleural effusion as well as hepatomegaly and multiple layering gallstones and sigmoid diverticulosis. * start on IV solumedrol 40mg q8 * #Paroxysmal afib: on amiodarone, cardizem and lopressor. On coumadin. #Hypertension: on lopressor, cardizem and amiodarone. #Hyponatremia: resolved. Sodium is 135 today #GERD: on PPI DVT prophylaxis: on coumadin. Monitor INR, with rate of 2-3. INR today is 2.4 Charges/Coding Visit Charges Inpatient E&M: 33023 Subs Hosp L2 01/24/25 1525 <Electronically signed by Christine Borges MD> Christine Borges MD Cosigner Signature (if applicable): CC: ~ Signed [facility] Work Phone: 1(739) 936-620308-22-2025 Telephone encounter Note* Telephone Encounter - Cadence Bustillo LPN - 01/24/2025 3:31 PM EDT Notified. [facility]08-22-2025 Miscellaneous Notes* Telephone Encounter - Cadence Bustillo LPN - 01/24/2025 3:31 PM EDT Notified. * Telephone Encounter - Christopher Bonilla MD - 01/24/2025 3:10 PM EDT ok * Telephone Encounter - Nay Cottrell RN - 01/24/2025 2:54 PM EDT Edith with [facility] HH calls to ask if provider would be willing to follow their HH orders for SN and PT. Patient currently at [facility] for COPD and CHF exacerbation with hypoxemia. Plan is to discharge patienttomorrow after she has had another round of steroids. Patient will not be coming home on oxygen at this point. Call back number for Edith is [phone]. Please review and advise, Nay Cottrell RN [facility] Progress note [facility] Medical Records Department [address] [place] [address] Progress Note 01/24/25 0958 MR#: [id number] Acct: [id number] Name: LIBRA CEJA Rep #:[id number] : 1945 79 From: Christine Borges MD PCP: Dr. Christopher Bonilla MD Status:ADM I N Location: [place] [address] Subjective Subjective Patient seen and examined with her nurse by her bedside. SHe had no active compalnts. SHe was on 2Lof oxygen. SHe apparently felt short of breath during the night and required the 2L of oxygen, and requested that it be left on this morning. Review of systems is otherwise negative. Objective Data Objective Data Vital Signs: Vital Signs Temp Pulse Resp BP Pulse Ox O2 Del Method O2 Flow Rate 97.9 F 68 16 133/56 H 95 Nasal Cannula 2 01/24/25 08:28 01/24/25 09:07 01/24/25 08:28 01/24/25 09:07 01/24/25 08:28 01/24/25 08:32 01/24/25 08:32 Oxygen Flow Rate (L/min) 2 Oxygen Delivery Method Nasal Cannula Weight: 116 lb 9.992 oz Body Mass Index (BMI) 22.7 Intake & Output: Intake and Output for Last 24 Hours 01/22/25 01/23/25 01/24/25 23:59 23:59 23:59 Intake Total 700 / 920 770 / 950 180 / 180 Output Total 850 / 1000 250 / 250 Balance 700 / 820 -80 / -50 -70 / -70 Lab / Micro Data 01/24/25 05:00 01/24/25 05:00 Labs: Laboratory Results - last 24 hr 01/23/25 16:04: PT 24.3 H, INR 2.1 01/24/25 05:00: WBC 17.2 H, RBC 4.86, Hgb 14.0, Hct 41.6, MCV 85.6, MCH 28.8, MCHC 33.7, RDW Std Deviation 45.5 H, RDW Coeff of Angelo 14.6, Plt Count 319, MPV 9.3, Immature Gran % (Auto) 0.800, Neut % (Auto) 92.7 H, Lymph % (Auto) 3.9 L, Tate % (Auto) 2.5, Eos % (Auto) 0.0, Baso % (Auto) 0.1, Absolute Neuts (auto) 15.9 H, Absolute Lymphs (auto) 0.67 L, Nucleated RBC % 0, Sodium 135, Potassium 4.3, Chloride 96 L, Carbon Dioxide 25.2, Anion Gap 14, BUN 21 H, Creatinine 0.76, Estim Creat Clear Calc 40.96 L, Est GFR (MDRD) Non-Af 80, BUN/Creatinine Ratio 28.0 H, Glucose 152 H, Calcium 8.7 01/24/25 08:38: PT 26.5 H, INR 2.4 Micro: Microbiology 01/22/25 16:04 Mucosa - Nose SARS-CoV-2, Influenza & RSV (PCR) - Final Physical Exam Const alert, oriented x3, no apparent distress and average body habitus Constitutional Narrative: frail General Appearance: cooperative and comfortable HEENT normocephalic, head/scalp atraumatic, hearing grossly normal bilaterally, nasal mucous membranes and turbinates normal, moist oral mucous membranes and oropharynx normal Eyes PERRL, EOMs intact bilaterally and conjunctivae normal Neck full ROM, supple and no JVD Lymph Lymphatic: no lymphedema noted Chest inspection of chest normal Resp normal respiratory effort and no use of accessory muscles Resp Narrative: mildly diminished breath sounds bibasally, bilateral few crackles. On 2L of oxygen by nasal canula Cardio regular rate, regular rhythm, S1 normal heart sound, S2 normal heart sound, no murmurs and peripheral pulses 2+ throughout GI normal to inspection, nondistended, normoactive bowel sounds, soft to palpation,non-tender and non-distended Back/Spine normal ROM Extremity normal to inspection, full ROM, normal capillary refill, no clubbing, cyanosis or edema, no calf tenderness and no pedal edema General Extremity: no tenderness to palpation of joints or extremities Skin no rashes or lesions noted General Skin Exam: no breakdown Neuro no focal motor deficits and no sensory deficits noted Motor Exam: general weakness Psych mental status grossly normal, thought process normal, cooperative and affect normal Mood & Affect: flat affect Assessment & Plan Assessment/Plan (1) CHF exacerbation: PLAN: Plan #Hypoxia due to Acute exacerbation of heart failure with preserved EF and acute on chronic COPD exacerbation. * on 2L of oxygen. Uusally on room air at home. * BNP was elevated at 4301. 2D echo from November 2023 showed EF of 60% and pulmonary systolic pressureof 80mmHg consistent with severe pulmonary hypertension * on IV lasix 40mg bid * monitor intake and output * on breathing treatment with bronchodilators * repeat 2D echo shows EF of 60% and no regional wall motion abnormalities with normal left ventricular systolic function and pulmonary artery systolic pressure of 80 mmHg which is similar to previous echo. * titrate oxygen to maintain sats >90% * CT abdomen and pelvis showed small right pleural effusion as well as hepatomegaly and multiple layering gallstones and sigmoid diverticulosis. * start on IV solumedrol 40mg q8 * #Paroxysmal afib: on amiodarone, cardizem and lopressor. On coumadin. #Hypertension: on lopressor, cardizem and amiodarone. #Hyponatremia: resolved. Sodium is 135 today #GERD: on PPI DVT prophylaxis: on coumadin. Monitor INR, with rate of 2-3. INR today is 2.4 Charges/Coding Visit Charges Inpatient E&M: 44365 [facility] 01/24/25 1525 Christine Borges MD Cosigner Signature (if applicable): CC: ~ Signed [facility]08-22-2025 Telephone encounter Note* Telephone Encounter - Christopher Bonilla MD - 01/24/2025 3:10 PM EDT ok [facility]08-22-2025 Telephone encounter Note* Telephone Encounter - Nay Cottrell RN - 01/24/2025 2:54 PM EDT Edith with [facility] calls to ask if provider would be willing to follow their HH orders for SN and PT. Patient currently at [facility] for COPD and CHF exacerbation with hypoxemia. Plan is to discharge patienttomorrow after she has had another round of steroids. Patient will not be coming home on oxygen at this point. Call back number for Edith is [phone]. Please review and advise, Nay Cottrell RN [facility]08-21-2025 Progress note Author Christine Borges [facility] Note Date/Time January 23, 2025 3: 33pm [facility] Medical Records Department [address] [place] [address] Progress Note 01/23/25 1508 MR#: [id number] Acct: [id number] Name: LIBRA CEJA Rep #:[id number] : 1945 79 From: Christine Borges MD PCP: Dr. Christopher Bonilla MD Status:ADM I N Location: [place] [address] Subjective Subjective Patient seen and examined with her nurse by her bedside. She had no complaints. She is on 2 L of oxygen and says she does not wear any oxygen at home. She denies any cough or chest pain, palpitations, dizziness, nausea or vomiting or any other symptoms. Review of systems otherwise negative. Objective Data Objective Data Vital Signs: Vital Signs Temp Pulse Resp BP Pulse Ox O2 Del Method O2 Flow Rate 97.7 F L 61 16 113/48 L 97 Nasal Cannula 2 01/23/25 14:26 01/23/25 14:26 01/23/25 14:26 01/23/25 14:26 01/23/25 14:26 01/23/25 14:44 01/23/25 14:44 Oxygen Flow Rate (L/min) 2 Oxygen Delivery Method Nasal Cannula Weight: 116 lb 9.992 oz Body Mass Index (BMI) 22.7 Intake & Output: Intake and Output for Last 24 Hours 01/21/25 01/22/25 01/23/25 23:59 23:59 23:59 Intake Total 700 / 920 470 / 470 Output Total 600 / 600 Balance 700 / 820 -130 / -130 Lab / Micro Data 01/23/25 05:09 01/23/25 05:09 Labs: Laboratory Results - last 24 hr 01/22/25 13:35: NT pro BNP II 4301 H, Procalcitonin 0.12 H 01/22/25 14:57: Urine Color Straw, Urine Clarity Clear, Urine pH 6.5, Ur Specific [place] 1.010, Urine Protein Negative, Urine Glucose (UA) Normal, UrineKetones Negative, Urine Occult Blood Negative, Urine Nitrite Negative, Urine Bilirubin Negative, Urine Urobilinogen Normal, Ur Leukocyte Esterase Negative, Urine RBC 0-5 SEEN, Urine WBC 0-5 SEEN, Ur Squamous Epith Cells 0-5 SEEN, Urine Bacteria RARE, Urine Mucus 0 SEEN 01/23/25 05:09: WBC 9.1, RBC 4.82, Hgb 14.1, Hct 41.5, MCV 86.1, MCH 29.3, MCHC 34.0, RDW Std Deviation 45.8 H, RDW Coeff of Angelo 14.6, Plt Count 266, MPV 9.0, Sodium 134, Potassium 3.9, Chloride 97 L, Carbon Dioxide 23.6, Anion Gap 14, BUN14, Creatinine 0.76, Estim Creat Clear Calc 40.96 L, Est GFR (MDRD) Non-Af 80, BUN/Creatinine Ratio 18.4, Glucose 184 H, Calcium 8.4 Micro: Microbiology 01/22/25 16:04 Mucosa - Nose SARS-CoV-2, Influenza & RSV (PCR) - Final Physical Exam Const alert, oriented x3 and no apparent distress Constitutional Narrative: frail General Appearance: cooperative HEENT normocephalic, head/scalp atraumatic, moist oral mucous membranes and oropharynxnormal Eyes EOMs intact bilaterally Neck supple and no JVD Lymph Lymphatic: no lymphedema noted Resp Resp Narrative: mildly diminished breath sounds bibasally, bilateral few crackles. On 2L of oxygen by nasal canula Cardio regular rate, regular rhythm, S1 normal heart sound, S2 normal heart sound and no murmurs GI normal to inspection, nondistended, normoactive bowel sounds, soft to palpation,non-tender and non-distended Extremity normal capillary refill, no clubbing, cyanosis or edema and no calf tenderness General Extremity: no tenderness to palpation of joints or extremities Skin General Skin Exam: no breakdown Neuro no focal motor deficits and no sensory deficits noted Motor Exam: general weakness Psych thought process normal, cooperative and affect normal Mood & Affect: flat affect Assessment & Plan Assessment/Plan (1) CHF exacerbation: PLAN: Plan #Hypoxia due to Acute exacerbation of heart failure with preserved EF and acute on chronic COPD exacerbation. * on 2L of oxygen. Uusally on room air at home. * BNP was elevated at 4301. 2D echo from November 2023 showed EF of 60% and pulmonary systolic pressure of 80mmHg consistent with severe pulmonary hypertension * on IV lasix 40mg bid * monitor intake and output * on breathing treatment with bronchodilators * repeat 2D echo ordered. * titrate oxygen to maintain sats >90% * CT abdomen and pelvis showed small right pleural effusion as well as hepatomegaly and multiple layering gallstones and sigmoid diverticulosis. * start on IV solumedrol 40mg q8 * #Paroxysmal afib: on amiodarone, cardizem and lopressor. On coumadin. #Hypertension: on lopressor, cardizem and amiodarone. #Hyponatremia: Na is 134. Was 130 yesterday. #GERD: on PPI DVT prophylaxis: on coumadin. Monitor INR, with rate of 2-3. INR today is pending. Charges/Coding Visit Charges Inpatient E&M: 31644 Subs Hosp L2 01/23/25 1533 <Electronically signed by Christine Borges MD> Christine Borges MD Cosigner Signature (if applicable): CC: ~ Signed [facility] Work Phone: 1(999) 458-183808-21-2025 Progress note [facility] Medical Records Department [address] [place] [id number] Progress Note 01/23/25 1508 MR#: [id number] Acct: [id number] Name: LIBRA CEJA Rep #:[id number] : 1945 79 From: Christine Borges MD PCP: Dr. Christopher Bonilla MD Status:ADM I N Location: [place] [address]- Subjective Subjective Patient seen and examined with her nurse by her bedside. She had no complaints. She is on 2 L of oxygen and says she does not wear any oxygen at home. She denies any cough or chest pain, palpitations, dizziness, nausea or vomiting or any other symptoms. Review of systems otherwise negative. Objective Data Objective Data Vital Signs: Vital Signs Temp Pulse Resp BP Pulse Ox O2 Del Method O2 Flow Rate 97.7 F L 61 16 113/48 L 97 Nasal Cannula 2 01/23/25 14:26 01/23/25 14:26 01/23/25 14:26 01/23/25 14:26 01/23/25 14:26 01/23/25 14:44 01/23/25 14:44 Oxygen Flow Rate (L/min) 2 Oxygen Delivery Method Nasal Cannula Weight: 116 lb 9.992 oz Body Mass Index (BMI) 22.7 Intake & Output: Intake and Output for Last 24 Hours 01/21/25 01/22/25 01/23/25 23:59 23:59 23:59 Intake Total 700 / 920 470 / 470 Output Total 600 / 600 Balance 700 / 820 -130 / -130 Lab / Micro Data 01/23/25 05:09 01/23/25 05:09 Labs: Laboratory Results - last 24 hr 01/22/25 13:35: NT pro BNP II 4301 H, Procalcitonin 0.12 H 01/22/25 14:57: Urine Color Straw, Urine Clarity Clear, Urine pH 6.5, Ur Specific [place] 1.010, Urine Protein Negative, Urine Glucose (UA) Normal, UrineKetones Negative, Urine Occult Blood Negative,Urine Nitrite Negative, Urine Bilirubin Negative, Urine Urobilinogen Normal, Ur Leukocyte Esterase Negative, Urine RBC 0-5 SEEN, Urine WBC 0-5 SEEN, Ur Squamous Epith Cells 0-5 SEEN, Urine Bacteria RARE, Urine Mucus 0 SEEN 01/23/25 05:09: WBC 9.1, RBC 4.82, Hgb 14.1, Hct 41.5, MCV 86.1, MCH 29.3, MCHC 34.0, RDW Std Deviation 45.8 H, RDW Coeff of Angelo 14.6, Plt Count 266, MPV 9.0, Sodium 134, Potassium 3.9, Chloride 97 L, Carbon Dioxide 23.6, Anion Gap 14, BUN14, Creatinine 0.76, Estim Creat Clear Calc 40.96 L, Est GFR(MDRD) Non-Af 80, BUN/Creatinine Ratio 18.4, Glucose 184 H, Calcium 8.4 Micro: Microbiology 01/22/25 16:04 Mucosa - Nose SARS-CoV-2, Influenza & RSV (PCR) - Final Physical Exam Const alert, oriented x3 and no apparent distress Constitutional Narrative: frail General Appearance: cooperative HEENT normocephalic, head/scalp atraumatic, moist oral mucous membranes and oropharynxnormal Eyes EOMs intact bilaterally Neck supple and no JVD Lymph Lymphatic: no lymphedema noted Resp Resp Narrative: mildly diminished breath sounds bibasally, bilateral few crackles. On 2L of oxygen by nasal canula Cardio regular rate, regular rhythm, S1 normal heart sound, S2 normal heart sound and no murmurs GI normal to inspection, nondistended, normoactive bowel sounds, soft to palpation,non-tender and non-distended Extremity normal capillary refill, no clubbing, cyanosis or edema and no calf tenderness General Extremity: no tenderness to palpation of joints or extremities Skin General Skin Exam: no breakdown Neuro no focal motor deficits and no sensory deficits noted Motor Exam: general weakness Psych thought process normal, cooperative and affect normal Mood & Affect: flat affect Assessment & Plan Assessment/Plan (1) CHF exacerbation: PLAN: Plan #Hypoxia due to Acute exacerbation of heart failure with preserved EF and acute on chronic COPD exacerbation. * on 2L of oxygen. Uusally on room air at home. * BNP was elevated at 4301. 2D echo from November 2023 showed EF of 60% and pulmonary systolic pressureof 80mmHg consistent with severe pulmonary hypertension * on IV lasix 40mg bid * monitor intake and output * on breathing treatment with bronchodilators * repeat 2D echo ordered. * titrate oxygen to maintain sats >90% * CT abdomen and pelvis showed small right pleural effusion as well as hepatomegaly and multiple layering gallstones and sigmoid diverticulosis. * start on IV solumedrol 40mg q8 * #Paroxysmal afib: on amiodarone, cardizem and lopressor. On coumadin. #Hypertension: on lopressor, cardizem and amiodarone. #Hyponatremia: Na is 134. Was 130 yesterday. #GERD: on PPI DVT prophylaxis: on coumadin. Monitor INR, with rate of 2-3. INR today is pending. Charges/Coding Visit Charges Inpatient E&M: 66419 Subs Hosp L2 01/23/25 1267 Christine Borges MD Cosigner Signature (if applicable): CC: ~ Signed [facility]08-21-2025 History and physical note Author Philip Kamara [facility] Note Date/Time January 22, 2025 10 :16pm [facility] Medical Records Department [address] [place] [address] H&P Exam - Hospitalist 01/22/25 1650 MR#: [id number] Acct: [id number] Name: LIBRA CEJA Rep #:[id number] : 1945 79 From: Philip berger DO PCP: Dr. Christopher Bonilla MD Status:ADM I N Location: [place] [address] HPI - General General Date of Admission: 01/22/25 Date of Service: 01/22/25 Chief Complaint: Fever/chills and nausea with vomiting HPI Narrative LIBRA CEJA, is a 79 F who presented to [facility] ED on 01/22/2025 with fever/chills and nausea with vomiting. Medical history is significant for chronic HFpEF with pulmonary hypertension, paroxysmal A-fib, hypertension, hyperlipidemia and asthma/COPD. She is not on home oxygen. She lives at home with her 2 sons. She came to the ED today with fever/chill and nausea with vomiting that began this morning. Notes that she felt fine most of the day yesterday but then developed the symptoms this morning. Also had epigastric discomfort with this and mild shortness of breath with exertion. In the ED she was hypoxic to the mid 80s on room air at rest and had a low-grade fever to 99.9 F. She otherwise was normotensive and in normal sinus rhythm. Labs notable for WBC count 13.5, sodium 130, chloride 94. BNP elevated at 4301. Chest x-ray showed cardiomegaly with vascular congestion consistent with CHF. CT abdomen pelvis showed gallstones and hepatomegaly but no concern for acute cholecystitis or acute liver injury. There is concern for COPD exacerbation in the ED so she was given DuoNeb treatment and a dose of IV Solu-Medrol, and hospitalist was I saw the patient at bedside in the ED, granddaughter was present. Patient was mildly fatigued appearing but otherwise sitting back fairly comfortably in bed, breathing comfortably on 2 L nasal cannula at rest and in no acute distress. She states that the breathing treatment they gave herseem to be mildly helpful for her. She denies any fevers or chills currently. No other acute concerns today. Will be admitted for further management. [facility] Medical History Mitral valve insufficiency Mata's esophagus with dysplasia Wears glasses Ambulates with cane Arthritis High cholesterol Difficulty chewing Shortness of breath on exertion History of echocardiogram Cardiology follow-up encounter Bloating Abdominal pain FDC current use of amiodarone Paroxysmal atrial fibrillation Essential hypertension Mixed hyperlipidemia Chronic atrial fibrillation with RVR Exudative pleural effusion Renal cyst Hepatic congestion Recurrent pleural effusion Leukocytosis Embolic infarction Renal infarction Splenic infarction Substance abuse Goiter Non-smoker Atrial fibrillation Congestive heart failure (CHF) Hypertension Rheumatoid arthritis COPD (chronic obstructive pulmonary disease) Pleural effusion Rheumatoid arthritis Paroxysmal atrial fibrillation with RVR Subtherapeutic international normalized ratio (INR) Chronic anticoagulation Pulmonary hypertension Hypokalemia Hyponatremia PNA (pneumonia) COPD (chronic obstructive pulmonary disease) PAF (paroxysmal atrial fibrillation) HTN (hypertension) GERD (gastroesophageal reflux disease) HLD (hyperlipidemia) Marfans syndrome Home Medications ?Medication ?Instructions ?Recorded ?Last Taken ?Type calcium carbonate 600 mg PO DAILY SUPPLEMENT 0 06/19/19 07/12/21 History multivitamin 1 tab PO DAILY SUPPLEMENT 07/12/21 History albuterol sulfate 90 mcg/actuation 2 puff inhalation Q 4H PRN SOB 01/09/20 1 Week Ago History aerosol inhaler ~06/30/21 amiodarone 200 mg tablet 100 mg (1/2 x 200 mg) PO TEJ LY #45 02/23/24 Unknown Rx tabs diltiazem HCl 240 mg 240 mg PO DAILY HEART #90 ca ps 02/23/24 Unknown Rx capsule,extended release 24 hr furosemide 40 mg tablet 40 mg PO QDAY PRN diuretic 0 12/05/24 Unknown History omeprazole 20 mg capsule,delayed 20 mg PO BID 12/05/24 Unknown History release potassium chloride 20 mEq 20 meq PO QDAY 12/05/24 Unkn own History tablet,extended release fluticasone propionate 50 1 - 2 spray intranasal DAILY 01/22/25 Unknown History mcg/actuation nasal health maintnance spray,suspension metoprolol tartrate 25 mg tablet 25 mg PO BID 01/22/25 Unknown History warfarin 2 mg tablet See Rx Instructions PO .COMP ESTRELLA 01/22/25 Unknown History warfarin 3 mg tablet 3 mg PO .COMPLEX 01/22/25 Un known History Allergy/AdvReac Type Severity Reaction Status Date / Time pneumococcal vaccine (From Allergy Severe Rash Verified 01/22/25 13:22 Prevnar 13 (PF)) Latex, Natural Rubber Allergy Rash Verified 01/22/25 13:22 rosuvastatin calcium (From Allergy myalgias Verified 01/22/25 13:22 Crestor) ibuprofen AdvReac Nausea Verified 01/22/25 13:22 Family History Mother Diabetes Colon cancer Marfan syndrome Sister Diabetes Hypertension Brother Marfan syndrome COPD (chronic obstructive pulmonary disease) Brother Marfan syndrome Father Gastric ulcer GERD (gastroesophageal reflux disease) Surgical History History of eye surgery History of hysterectomy Social History household members: spouse and children housing: house Smoking Status: Never smoker alcohol intake: never substance use type: does not use caffeine: Yes Type: coffee Number of servings: 4 ROS Constitutional Constitutional: Reports chills, fatigue and fever(s); Denies weakness Eyes Eyes: Denies change in vision Cardiovascular Cardiovascular: Reports dyspnea on exertion; Denies chest pain, edema, lightheadedness or palpitations Respiratory/Chest Respiratory/Chest: Reports cough and shortness of breath with exertion; Denies productive cough, shortness of breath at rest or wheezing Gastrointestinal Gastrointestinal: Denies abdominal pain Genitourinary Genitourinary: Denies dysuria Musculoskeletal Musculoskeletal: Denies arthralgias or myalgias Neurologic Neurologic: Denies dizziness, focal weakness or headache(s) Vital Signs Vital Signs Vital Signs: 01/22/25 13:21 01/22/25 13:59 01/22/25 15:23 Temperature 99.9 F H 99.5 F H Temperature Source Oral Oral Pulse Rate 88 68 Respiratory Rate 16 16 Blood Pressure 154/71 H 131/69 H Blood Pressure Mean 98 89 Pulse Ox 92 85 97 Oxygen Delivery Method Room Air Room Air Nasal Cannula Oxygen Flow Rate (L/min) 2 01/22/25 16:26 Temperature 99.2 F H Temperature Source Oral Pulse Rate 66 Respiratory Rate 17 Blood Pressure 132/57 H Blood Pressure Mean 82 Pulse Ox 95 Oxygen Delivery Method Nasal Cannula Oxygen Flow Rate (L/min) 2 Weight Weight: 53.705 kg Body Mass Index (BMI) 22.4 Physical Exam Const alert, oriented x3, no apparent distress and average body habitus Constitutional Narrative: Elderly female, fatigued appearing but otherwise sitting back comfortably in bed, conversing normally, in no acute distress. General Appearance: cooperative and comfortable HEENT normocephalic, head/scalp atraumatic, hearing grossly normal bilaterally, nasal mucous membranes and turbinates normal and moist oral mucous membranes Eyes PERRL, EOMs intact bilaterally and conjunctivae normal Neck full ROM Chest inspection of chest normal Resp normal respiratory effort and no use of accessory muscles Resp Narrative: Breathing comfortably on 2 L nasal cannula at rest. Diminished breath sounds inbilateral lung bases with crackles noted. No wheezing noted. Cardio regular rate, regular rhythm, no murmurs and peripheral pulses 2+ throughout GI normal to inspection, nondistended, normoactive bowel sounds, soft to palpation,non-tender and non-distended Back/Spine normal ROM Extremity normal to inspection, full ROM and no pedal edema Skin no rashes or lesions noted Psych mental status grossly normal Results Lab / Micro Data 01/22/25 13:35 01/22/25 13:35 Labs: Laboratory Results - last 24 hr 01/22/25 13:35: WBC 13.5 H, RBC 4.96, Hgb 14.2, Hct 42.8, MCV 86.3, MCH 28.6, MCHC 33.2, RDW Std Deviation 46.0 H, RDW Coeff of Angelo 14.6, Plt Count 289, MPV 9.4, Immature Gran % (Auto) 0.500, Neut % (Auto) 84.4 H, Lymph % (Auto) 5.2 L, Tate % (Auto) 9.4, Eos % (Auto) 0.1, Baso % (Auto) 0.4, Absolute Neuts (auto) 11.4 H, Absolute Lymphs (auto) 0.70 L, Nucleated RBC % 0, PT 24.3 H, INR 2.1, Sodium 130 L, Potassium 4.0, Chloride 94 L, Carbon Dioxide 22.0, Anion Gap 14, BUN 10, Creatinine 0.79, Estim Creat Clear Calc 43.03 L, Est GFR (MDRD) Non-Af 77, BUN/Creatinine Ratio 13.0, Glucose 116 H, Calcium 8.6, Total Bilirubin 1.14,AST 20, ALT 11, Alkaline Phosphatase 109 H, Total Protein 7.6, Albumin 3.9, Globulin 3.7, Albumin/Globulin Ratio 1.0, Lipase 23 01/22/25 14:57: Urine Color Straw, Urine Clarity Clear, Urine pH 6.5, Ur Specific [place] 1.010, Urine Protein Negative, Urine Glucose (UA) Normal, UrineKetones Negative, Urine Occult Blood Negative, Urine Nitrite Negative, Urine Bilirubin Negative, Urine Urobilinogen Normal, Ur Leukocyte Esterase Negative, Urine RBC 0-5 SEEN, Urine WBC 0-5 SEEN, Ur Squamous Epith Cells 0-5 SEEN, Urine Bacteria RARE, Urine Mucus 0 SEEN Imaging Radiology Impression Chest X-Ray 01/22/25 13:41 IMPRESSION: Cardiomegaly and CHF. Reading Location: [id number] Abdomen/Pelvis CT 01/22/25 14:06 IMPRESSION: Small right pleural effusion with bibasilar scarring. Hepatomegaly. Stable small hepatic cysts. Multiple layering gallstones. Sigmoid diverticulosis. Reading Location: [id number] Assessment & Plan Assessment/Plan (1) CHF exacerbation: PLAN: Plan Patient is a 79-year-old female who presented to [facility] ED on 01/22/2025 with fever/chills, nausea with vomiting and shortness of breath with exertion. 1. Acute hypoxia secondary to acute on chronic HFpEF known pulmonary hypertension with suspected viral URI, concern for COPD exacerbation ? Admit under inpatient status to PCU. Requiring 2 L nasal cannula at rest in the ED to maintain appropriate oxygen saturations. Not on home oxygen. Chest x-ray showed vascular congestion consistent with CHF. BNP elevated at 4301. Last echo in 12/2023 showed EF 60%, moderately large LA, pulmonary artery systolic pressure of 80 mmHg consistent with severe pulmonary hypertension. Patient also with leukocytosis with WBC count 13K, low-grade fever and URI symptoms on admit. Procalcitonin negative. Seems most consistent with viral URI. COVID/flu/RSV negative. No wheezing noted on my physical exam. Will treat with IV Lasix 40 mg twice daily for now, monitor daily BMP and urine output. Will start scheduled DuoNebs but hold off on steroids or antibiotics. Repeat echocardiogram ordered. Wean supplemental oxygen as able. 2. Paroxysmal A-fib on warfarin, hypertension ? In normal sinus rhythm on admit. INR 2.1, at goal. Continue home amiodarone,diltiazem and Lopressor. Notably patient is on chronic amiodarone therapy and completed PFTs recently in late December that showed mild restrictive ventilatory impairment with moderate reduction in diffusing capacity. 3. GERD ? Continue home PPI. DVT prophylaxis: Not indicated, on warfarin CODE STATUS: Full code, verified Expected disposition: Home, 2 to 3 days Total clinical time spent by myself addressing the patient's medical issues, reviewing all the data, and collaborating with patient's care team: 75 minutes. Charges/Coding Visit Charges Inpatient E&M: 88205 Init Hosp L3 01/22/256 <Electronically signed by Philip Kamara DO> Cosigner Signature (if applicable): CC: Dr. Philip Kamara DO; Dr. Christopher oBnilla MD~ Signed [facility] Work Phone: 1(365) 543-859708-20-2025 History and physical note [facility] Medical Records Department [address] [place] [address] H&P Exam - Hospitalist 01/22/25 1650 MR#: [id number] Acct: [id number] Name: LIBRA CEJA Rep #:[id number] : 1945 79 From: Philip berger DO PCP: Dr. Christopher Bonilla MD Status:ADM I N Location: [place] [address] HPI - General General Date of Admission: 01/22/25 Date of Service: 01/22/25 Chief Complaint: Fever/chills and nausea with vomiting HPI Narrative LIBRA CEJA, is a 79 F who presented to [facility] ED on 01/22/2025 with fever/chills and nausea with vomiting. Medical history is significant for chronic HFpEF with pulmonary hypertension, paroxysmal A-fib, hypertension, hyperlipidemia and asthma/COPD. She is not on home oxygen. She lives at home with her 2 sons. She came to the ED today with fever/chill and nausea with vomiting that began this morning. Notes that she felt fine most of the day yesterday but then developed the symptoms this morning. Also had epigastric discomfort with this and mild shortness of breath with exertion. In the ED she was hypoxic to the mid 80s on room air at rest and had a low-grade fever to 99.9F. She otherwise was normotensive and in normal sinus rhythm. Labs notable for WBC count 13.5, sodium 130, chloride 94. BNP elevated at 4301. Chest x-ray showed cardiomegaly with vascular congestion consistent with CHF. CT abdomen pelvis showed gallstones and hepatomegaly but no concern for acute ch olecystitis or acute liver injury. There is concern for COPD exacerbation in the ED so she was given DuoNeb treatment and a dose of IV Solu-Medrol, and hospitalist was I saw the patient at bedside inthe ED, granddaughter was present. Patient was mildly fatigued appearing but otherwise sitting backfairly comfortably in bed, breathing comfortably on 2 L nasal cannula at rest and in no acute distress. She states that the breathing treatment they gave herseem to be mildly helpful for her. She denies any fevers or chills currently. No other acute concerns today. Will be admitted for further management. [facility] Medical History Mitral valve insufficiency Mata's esophagus with dysplasia Wears glasses Ambulates with cane Arthritis High cholesterol Difficulty chewing Shortness of breath on exertion History of echocardiogram Cardiology follow-up encounter Bloating Abdominal pain FDC current use of amiodarone Paroxysmal atrial fibrillation Essential hypertension Mixed hyperlipidemia Chronic atrial fibrillation with RVR Exudative pleural effusion Renal cyst Hepatic congestion Recurrent pleural effusion Leukocytosis Embolic infarction Renal infarction Splenic infarction Substance abuse Goiter Non-smoker Atrial fibrillation Congestive heart failure (CHF) Hypertension Rheumatoid arthritis COPD (chronic obstructive pulmonary disease) Pleural effusion Rheumatoid arthritis Paroxysmal atrial fibrillation with RVR Subtherapeutic international normalized ratio (INR) Chronic anticoagulation Pulmonary hypertension Hypokalemia Hyponatremia PNA (pneumonia) COPD (chronic obstructive pulmonary disease) PAF (paroxysmal atrial fibrillation) HTN (hypertension) GERD (gastroesophageal reflux disease) HLD (hyperlipidemia) Marfans syndrome Home Medications ?Medication ?Instructions ?Recorded ?Last Taken ?Type calcium carbonate 600 mg PO DAILY SUPPLEMENT 0 06/19/19 07/12/21 History multivitamin 1 tab PO DAILY SUPPLEMENT 07/12/21 History albuterol sulfate 90 mcg/actuation 2 puff inhalation Q 4H PRN SOB 01/09/20 1 Week Ago History aerosol inhaler ~06/30/21 amiodarone 200 mg tablet 100 mg (1/2 x 200 mg) PO TEJ LY #45 02/23/24 Unknown Rx tabs diltiazem HCl 240 mg 240 mg PO DAILY HEART #90 ca ps 02/23/24 Unknown Rx capsule,extended release 24 hr furosemide 40 mg tablet 40 mg PO QDAY PRN diuretic 0 12/05/24 Unknown History omeprazole 20 mg capsule,delayed 20 mg PO BID 12/05/24 Unknown History release potassium chloride 20 mEq 20 meq PO QDAY 12/05/24 Unkn own History tablet,extended release fluticasone propionate 50 1 - 2 spray intranasal DAILY 01/22/25 Unknown History mcg/actuation nasal health maintnance spray,suspension metoprolol tartrate 25 mg tablet 25 mg PO BID 01/22/25 Unknown History warfarin 2 mg tablet See Rx Instructions PO .COMP ESTRELLA 01/22/25 Unknown History warfarin 3 mg tablet 3 mg PO .COMPLEX 01/22/25 Un known History Allergy/AdvReac Type Severity Reaction Status Date / Time pneumococcal vaccine (From Allergy Severe Rash Verified 01/22/25 13:22 Prevnar 13 (PF)) Latex, Natural Rubber Allergy Rash Verified 01/22/25 13:22 rosuvastatin calcium (From Allergy myalgias Verified 01/22/25 13:22 Crestor) ibuprofen AdvReac Nausea Verified 01/22/25 13:22 Family History Mother Diabetes Colon cancer Marfan syndrome Sister Diabetes Hypertension Brother Marfan syndrome COPD (chronic obstructive pulmonary disease) Brother Marfan syndrome Father Gastric ulcer GERD (gastroesophageal reflux disease) Surgical History History of eye surgery History of hysterectomy Social History household members: spouse and children housing: house Smoking Status: Never smoker alcohol intake: never substance use type: does not use caffeine: Yes Type: coffee Number of servings: 4 ROS Constitutional Constitutional: Reports chills, fatigue and fever(s); Denies weakness Eyes Eyes: Denies change in vision Cardiovascular Cardiovascular: Reports dyspnea on exertion; Denies chest pain, edema, lightheadedness or palpitations Respiratory/Chest Respiratory/Chest: Reports cough and shortness of breath with exertion; Denies productive cough, shortness of breath at rest or wheezing Gastrointestinal Gastrointestinal: Denies abdominal pain Genitourinary Genitourinary: Denies dysuria Musculoskeletal Musculoskeletal: Denies arthralgias or myalgias Neurologic Neurologic: Denies dizziness, focal weakness or headache(s) Vital Signs Vital Signs Vital Signs: 01/22/25 13:21 01/22/25 13:59 01/22/25 15:23 Temperature 99.9 F H 99.5 F H Temperature Source Oral Oral Pulse Rate 88 68 Respiratory Rate 16 16 Blood Pressure 154/71 H 131/69 H Blood Pressure Mean 98 89 Pulse Ox 92 85 97 Oxygen Delivery Method Room Air Room Air Nasal Cannula Oxygen Flow Rate (L/min) 2 01/22/25 16:26 Temperature 99.2 F H Temperature Source Oral Pulse Rate 66 Respiratory Rate 17 Blood Pressure 132/57 H Blood Pressure Mean 82 Pulse Ox 95 Oxygen Delivery Method Nasal Cannula Oxygen Flow Rate (L/min) 2 Weight Weight: 53.705 kg Body Mass Index (BMI) 22.4 Physical Exam Const alert, oriented x3, no apparent distress and average body habitus Constitutional Narrative: Elderly female, fatigued appearing but otherwise sitting back comfortably in bed, conversing normally, in no acute distress. General Appearance: cooperative and comfortable HEENT normocephalic, head/scalp atraumatic, hearing grossly normal bilaterally, nasal mucous membranes and turbinates normal and moist oral mucous membranes Eyes PERRL, EOMs intact bilaterally and conjunctivae normal Neck full ROM Chest inspection of chest normal Resp normal respiratory effort and no use of accessory muscles Resp Narrative: Breathing comfortably on 2 L nasal cannula at rest. Diminished breath sounds inbilateral lung baseswith crackles noted. No wheezing noted. Cardio regular rate, regular rhythm, no murmurs and peripheral pulses 2+ throughout GI normal to inspection, nondistended, normoactive bowel sounds, soft to palpation,non-tender and non-distended Back/Spine normal ROM Extremity normal to inspection, full ROM and no pedal edema Skin no rashes or lesions noted Psych mental status grossly normal Results Lab / Micro Data 01/22/25 13:35 01/22/25 13:35 Labs: Laboratory Results - last 24 hr 01/22/25 13:35: WBC 13.5 H, RBC 4.96, Hgb 14.2, Hct 42.8, MCV 86.3, MCH 28.6, MCHC 33.2, RDW Std Deviation 46.0 H, RDW Coeff of Angelo 14.6, Plt Count 289, MPV 9.4, Immature Gran % (Auto) 0.500, Neut % (Auto) 84.4 H, Lymph % (Auto) 5.2 L, Tate % (Auto) 9.4, Eos % (Auto) 0.1, Baso % (Auto) 0.4, Absolute Neuts (auto) 11.4 H, Absolute Lymphs (auto) 0.70 L, Nucleated RBC % 0, PT 24.3 H, INR 2.1, Sodium 130 L, Potassium 4.0, Chloride 94 L, Carbon Dioxide 22.0, Anion Gap 14, BUN 10, Creatinine 0.79, Estim Creat Clear Calc 43.03 L, Est GFR (MDRD) Non-Af 77, BUN/Creatinine Ratio 13.0, Glucose 116 H, Calcium 8.6, Total Bilirubin 1.14,AST 20, ALT 11, Alkaline Phosphatase 109 H, Total Protein 7.6, Albumin 3.9, Globulin 3.7, Albumin/Globulin Ratio 1.0, Lipase 23 01/22/25 14:57: Urine Color Straw, Urine Clarity Clear, Urine pH 6.5, Ur Specific [place] 1.010, Urine Protein Negative, Urine Glucose (UA) Normal, UrineKetones Negative, Urine Occult Blood Negative,Urine Nitrite Negative, Urine Bilirubin Negative, Urine Urobilinogen Normal, Ur Leukocyte Esterase Negative, Urine RBC 0-5 SEEN, Urine WBC 0-5 SEEN, Ur Squamous Epith Cells 0-5 SEEN, Urine Bacteria RARE, Urine Mucus 0 SEEN Imaging Radiology Impression Chest X-Ray 01/22/25 13:41 IMPRESSION: Cardiomegaly and CHF. Reading Location: [id number] Abdomen/Pelvis CT 01/22/25 14:06 IMPRESSION: Small right pleural effusion with bibasilar scarring. Hepatomegaly. Stable small hepatic cysts. Multiple layering gallstones. Sigmoid diverticulosis. Reading Location: [id number] Assessment & Plan Assessment/Plan (1) CHF exacerbation: PLAN: Plan Patient is a 79-year-old female who presented to [facility] ED on 01/22/2025 with fever/chills, nausea with vomiting and shortness of breath with exertion. 1. Acute hypoxia secondary to acute on chronic HFpEF known pulmonary hypertension with suspected viral URI, concern for COPD exacerbation ? Admit under inpatient status to PCU. Requiring 2 L nasal cannula at rest in the ED to maintain appropriate oxygen saturations. Not on home oxygen. Chest x- ray showed vascular congestion consistent with CHF. BNP elevated at 4301. Last echo in 12/2023 showed EF 60%, moderately large LA, pulmonary artery systolic pressure of 80 mmHg consistent with severe pulmonary hypertension. Patient also with leukocytosis with WBC count 13K, low-grade fever and URI symptoms on admit. Procalcitonin negative. Seems most consistent with viral URI. COVID/flu/RSV negative. No wheezing noted on my physical exam. Will treat with IV Lasix 40 mg twice daily for now, monitor daily BMP and urine output. Will start scheduled DuoNebs but hold off on steroids or antibiotics. Repeat echocardiogram ordered. Wean supplemental oxygen as able. 2. Paroxysmal A-fib on warfarin, hypertension ? In normal sinus rhythm on admit. INR 2.1, at goal. Continue home amiodarone,diltiazem and Lopressor. Notably patient is on chronic amiodarone therapy and completed PFTs recently in late December that showed mild restrictive ventilatory impairment with moderate reduction in diffusing capacity. 3. GERD ? Continue home PPI. DVT prophylaxis: Not indicated, on warfarin CODE STATUS: Full code, verified Expected disposition: Home, 2 to 3 days Total clinical time spent by myself addressing the patient's medical issues, reviewing all the data, and collaborating with patient's care team: 75 minutes. Charges/Coding Visit Charges Inpatient E&M: 02118 Init Hosp L3 01/22/25 2218 Cosigner Signature (if applicable): CC: Dr. Philip Kamara DO; Dr. Christopher Bonilla MD~ Signed [facility]08-20-2025 Discharge summary Author Juan Vines [facility] Note Date/Time January 22, 2025 4: 54pm [facility] Medical Records Department [address] [place] [address] Emergency Department Summary 01/22/25 MR#: [id number] Acct: [id number] Name: LIBRA CEJA Rep #:[id number] : 1945 79 From: Juan Vines MD PCP: Dr. Christopher Bonilla MD Status:REG E R Location: ED HPI History of Present Illness Chief Complaint: Nausea/Vomiting Informant: patient Onset/Context/Timing Onset: Today and Hours Context: Gradual Onset Timing: Continuous Current Severity: Mild Maximum Severity: Mild Narrative Narrative: 79-year-old female history of A-fib on Coumadin, hypertension, COPD, known gallstones. Prior hysterectomy. States this morning around 10:00 she had feverand chills had nausea and vomiting. Denies any dysuria. Mild epigastric discomfort. Said she felt fine most of the day yesterday. Prior similar symptoms: Yes Recent Illness/Hospitalization: No PFSH [facility] Medical History Mitral valve insufficiency Mata's esophagus with dysplasia Wears glasses Ambulates with cane Arthritis High cholesterol Difficulty chewing Shortness of breath on exertion History of echocardiogram Cardiology follow-up encounter Bloating Abdominal pain FDC current use of amiodarone Paroxysmal atrial fibrillation Essential hypertension Mixed hyperlipidemia Chronic atrial fibrillation with RVR Exudative pleural effusion Renal cyst Hepatic congestion Recurrent pleural effusion Leukocytosis Embolic infarction Renal infarction Splenic infarction Substance abuse Goiter Non-smoker Atrial fibrillation Congestive heart failure (CHF) Hypertension Rheumatoid arthritis COPD (chronic obstructive pulmonary disease) Pleural effusion Rheumatoid arthritis Paroxysmal atrial fibrillation with RVR Subtherapeutic international normalized ratio (INR) Chronic anticoagulation Pulmonary hypertension Hypokalemia Hyponatremia PNA (pneumonia) COPD (chronic obstructive pulmonary disease) PAF (paroxysmal atrial fibrillation) HTN (hypertension) GERD (gastroesophageal reflux disease) HLD (hyperlipidemia) Marfans syndrome Home Medications ?Medication ?Instructions ?Recorded ?Last Taken ?Type calcium carbonate 600 mg PO DAILY SUPPLEMENT 0 06/19/19 07/12/21 History multivitamin 1 tab PO DAILY SUPPLEMENT 07/12/21 History albuterol sulfate 90 mcg/actuation 2 puff inhalation Q 4H PRN SOB 01/09/20 1 Week Ago History aerosol inhaler ~06/30/21 amiodarone 200 mg tablet 100 mg (1/2 x 200 mg) PO TEJ LY #45 02/23/24 Unknown Rx tabs diltiazem HCl 240 mg 240 mg PO DAILY HEART #90 ca ps 02/23/24 Unknown Rx capsule,extended release 24 hr furosemide 40 mg tablet 40 mg PO QDAY 12/05/24 Unkno wn History omeprazole 20 mg capsule,delayed 20 mg PO BID 12/05/24 Unknown History release potassium chloride 20 mEq 20 meq PO QDAY 12/05/24 Unkn own History tablet,extended release metoprolol tartrate 25 mg tablet 25 mg PO BID 01/22/25 Unknown History warfarin 2 mg tablet See Rx Instructions PO .COMP ESTRELLA 01/22/25 Unknown History warfarin 3 mg tablet 3 mg PO .COMPLEX 01/22/25 Un known History Allergy/AdvReac Type Severity Reaction Status Date / Time pneumococcal vaccine (From Allergy Severe Rash Verified 01/22/25 13:22 Prevnar 13 (PF)) Latex, Natural Rubber Allergy Rash Verified 01/22/25 13:22 rosuvastatin calcium (From Allergy myalgias Verified 01/22/25 13:22 Crestor) ibuprofen AdvReac Nausea Verified 01/22/25 13:22 Family History Mother Diabetes Colon cancer Marfan syndrome Sister Diabetes Hypertension Brother Marfan syndrome COPD (chronic obstructive pulmonary disease) Brother Marfan syndrome Father Gastric ulcer GERD (gastroesophageal reflux disease) Surgical History History of eye surgery History of hysterectomy Social History household members: spouse and children housing: house Smoking Status: Never smoker alcohol intake: never substance use type: does not use caffeine: Yes Type: coffee Number of servings: 4 ROS ROS ED ROS Narrative Subjective fever. Nausea vomiting. Mild epigastric abdominal discomfort. Constitutional Constitutional ED: Reports fever(s) and subjective Eyes Eyes: Denies blurry vision ENT ENT ED: Denies ear pain Cardiovascular Cardiovascular: Denies chest pain Respiratory/Chest Respiratory/Chest: Denies cough or dyspnea Gastrointestinal Gastrointestinal: Reports abdominal pain, nausea and vomiting; Denies constipation, diarrhea or melena Genitourinary Genitourinary ED: Denies dysuria or hematuria Musculoskeletal Musculoskeletal: Denies arthralgias Integumentary Denies abscess Neurologic Neurologic: Denies headache(s) Psychiatric Psychiatric: Denies anxiety Endocrine Endocrinology: Denies cold intolerance Hematologic/Lymphatic Hematologic/Lymphatic: Reports none Allergic/Immunologic Allergic/Immunologic ED: Denies mouth swelling, tongue swelling or urticaria EXAM Physical Exam Narrative Exam Narrative: Significant phimosis upright in bed. Vital signs stable she has a temperature 99.9 orally. Pulse ox 92% on room air no hypoxia. H EENT exam pupils round react light. Moist mucous membranes. No facial droop. Neck nontender. Lungs clear to auscultation bilaterally. Cough. Heart rate about 90 no murmur. Chest wall and ribs nontender. Abdomen soft mild tenderness epigastric. No rebound guarding or rigidity. No specific right upper or right lower quadrant tenderness. No obstruction or distention. No hernia or mass. Moving all 4 extremities. Nontender. No rash. Neurologically she is awake and alert. Answering questions following commands. Daughter at bedside. Const Vital Signs: 01/22/25 13:21 01/22/25 13:59 01/22/25 15:23 Temperature 99.9 F H 99.5 F H Temperature Source Oral Oral Pulse Rate 88 68 Respiratory Rate 16 16 Blood Pressure 154/71 H 131/69 H Blood Pressure Mean 98 89 Pulse Ox 92 85 97 Oxygen Delivery Method Room Air Room Air Nasal Cannula Oxygen Flow Rate (L/min) 2 01/22/25 16:26 Temperature 99.2 F H Temperature Source Oral Pulse Rate 66 Respiratory Rate 17 Blood Pressure 132/57 H Blood Pressure Mean 82 Pulse Ox 95 Oxygen Delivery Method Nasal Cannula Oxygen Flow Rate (L/min) 2 Positive well nourished and well developed; Negative for cachectic, contracturesor unkempt General Appearance ED: well developed and NAD; Negative for unkempt, cachectic, contractures, cyanotic, diaphoretic or pallor Nutritional Appearance: Negative for cachectic HEENT Reports moist mucous membranes Eyes PERRL and EOMs intact bilaterally Neck no lymphadenopathy, supple and no JVD Chest Wall inspection of chest normal and palpation of chest normal Resp normal respiratory effort and clear to auscultation bilaterally Cardio regular rate, regular rhythm, S1 normal heart sound, S2 normal heart sound and no murmurs GI normal to inspection, nondistended, normoactive bowel sounds, non-distended and no masses; Negative for non-tender GI Narrative: Mild epigastric tenderness. No rebound guarding or rigidity. No hernia or mass. No localizing McBurney's per tenderness or Gtz sign. Inspection: Negative for abdominal distention Auscultation: normoactive bowel sounds Palpation: soft and tender; Negative for guarding, splenomegaly, mass or reboundtenderness present Back/Spine no CVA tenderness Back/Spine Narrative: significant kyphosis of her spine. General Back: Negative for CVA tenderness Cervical Spine: Negative for cervical spine tenderness Thoracic Spine / Upper Back: Negative for thoracic spinal tenderness or paraspinal muscle tenderness Lumbar Spine / Lower Back: Negative for lumbar spinal tenderness Extremity normal to inspection General Extremety ED: Negative for edema or tenderness General Extremity: Negative for edema Neuro oriented x3 and CN's II-XII intact bilaterally Sensorium / Orientation: alert Motor Exam: strength 5/5 throughout Psych mental status grossly normal Appearance: Negative for unkempt Attitude: No agitated Mood & Affect: Negative for depressed, anxious or tearful Skin no rashes or lesions noted, no wounds and skin turgor normal General Skin Exam: Negative for jaundice or pallor Lesions: No lesion noted Rashes: No rashes noted Trauma: Negative for abrasion Wounds: Negative for wounds noted MDM MDM MDM Narrative Medical decision making narrative: 79-year-old female subjective for nausea vomiting. Only mild abdominal discomfort. This could be a viral syndrome, UTI or intra-abdominal pathology. CAT scan and labs will be done. She be given Zofran for nausea IV fluids. Tylenol for her fever. Repeat exam at around 3:33 PM patient is doing better. Currently she is on oxygen while in the emergency department she desaturated to the mid 80s. She said she has had a cough recently. She denies any chest pain. We went over hertest results. I think she has a viral syndrome I am sending a COVID and flu swab. It has been ordered but not returned. I repeat exam she is wheezing she will be given DuoNeb and albuterol aerosols and IV Solu-Medrol she is a history of COPD but she is not on oxygen at home. I will speak to the hospitalist aboutadmission. History & Record Review Discussion w/independent historian: Patient and Family Additional record(s) reviewed:: Prior inpatient record, Prior outpatient record,Prior ED visit and Prior labs Lab Data Attestation: I reviewed the patient's lab results. Lab results narrative: CBC shows a white count of 13.5. H&H 14 and 42. Platelets 289. PT/INR of 24 and 2.1 she is on warfarin. Electrolytes show sodium 130. Gap 14. BUN and creatinine of 10 and 0.7. Glucose 116. Liver enzymes unremarkable other alk phos of 109. Lipase 23. Urinalysis negative. No white or red cells. Rare bacteria. No nitrates CT abdomen pelvis shows chronic changes. Right pleural effusion. Chest x-ray shows chronic changes. Labs: Laboratory Results - last 24 hr 01/22/25 01/22/25 13:35 14:57 WBC 13.5 H RBC 4.96 Hgb 14.2 Hct 42.8 MCV 86.3 MCH 28.6 MCHC 33.2 RDW Std Deviation 46.0 H RDW Coeff of Angelo 14.6 Plt Count 289 MPV 9.4 Immature Gran % (Auto) 0.500 Neut % (Auto) 84.4 H Lymph % (Auto) 5.2 L Tate % (Auto) 9.4 Eos % (Auto) 0.1 Baso % (Auto) 0.4 Absolute Neuts (auto) 11.4 H Absolute Lymphs (auto) 0.70 L Nucleated RBC % 0 PT 24.3 H INR 2.1 Sodium 130 L Potassium 4.0 Chloride 94 L Carbon Dioxide 22.0 Anion Gap 14 BUN 10 Creatinine 0.79 Estim Creat Clear Calc 43.03 L Est GFR (MDRD) Non-Af 77 BUN/Creatinine Ratio 13.0 Glucose 116 H Calcium 8.6 Total Bilirubin 1.14 AST 20 ALT 11 Alkaline Phosphatase 109 H Total Protein 7.6 Albumin 3.9 Globulin 3.7 Albumin/Globulin Ratio 1.0 Lipase 23 Urine Color Straw Urine Clarity Clear Urine pH 6.5 Ur Specific [place] 1.010 Urine Protein Negative Urine Glucose (UA) Normal Urine Ketones Negative Urine Occult Blood Negative Urine Nitrite Negative Urine Bilirubin Negative Urine Urobilinogen Normal Ur Leukocyte Esterase Negative Urine RBC 0-5 SEEN Urine WBC 0-5 SEEN Ur Squamous Epith Cells 0-5 SEEN Urine Bacteria RARE Urine Mucus 0 SEEN Radiography Chest X-Ray - ED: Read by ED Physician, Read by Radiologist, Mediastinum, Bony Structures, Chronic Changes and Cardiomegaly Diagnostic Testing: Clinical Impression(s) from Imaging Studies Chest X-Ray 01/22/25 13:41 IMPRESSION: Cardiomegaly and CHF. Reading Location: [facility] Abdomen/Pelvis CT 01/22/25 14:06 IMPRESSION: Small right pleural effusion with bibasilar scarring. Hepatomegaly. Stable small hepatic cysts. Multiple layering gallstones. Sigmoid diverticulosis. Reading Location: [facility] Chest x-ray, 2 views, AP and lateral, interpreted by by myself and the radiologist. Shows cardiomegaly. Chronic changes. No obvious pneumonia. No obvious effusion on chest x-ray. Discharge Plan Triage Chief Complaint: Nausea/Vomiting ED Provider: Juan Vines Dx/Rx/DC Orders Prescriptions: No Action multivitamin Tablet 1 tab PO DAILY calcium carbonate 600 mg calcium (1,500 mg) tablet 600 mg PO DAILY albuterol sulfate 90 mcg/actuation HFA aerosol inhaler 2 puff INHALATION Q4H PRN (Reason: SOB) omeprazole 20 mg capsule,delayed release(DR/EC) 20 mg PO BID furosemide 40 mg tablet 40 mg PO QDAY Patient Comments: DOES NOT TAKE ALL THE TIME ONLY WHEN SHE FEELS LIKE SHE NEEDS IT OF 01/22/2025 potassium chloride 20 mEq tablet extended release 20 meq PO QDAY warfarin 3 mg tablet 3 mg PO .COMPLEX Rx Instructions: TAKE ONE, 3 MG TABLET ON MONDAY, MONDAY, MONDAY, MONDAY, AND MONDAY; warfarin 2 mg tablet See Rx Instructions PO .COMPLEX Rx Instructions: TAKE 1 TABLET BY MOUTH ON MONDAY AND MONDAY AND TAKE 3 MG ALL OTHER DAYS OR DIRECTED PENDING LAB RESULTS metoprolol tartrate 25 mg tablet 25 mg PO BID amiodarone 200 mg tablet 100 mg PO DAILY Qty: 45 3RF diltiazem HCl 240 mg capsule,extended release 24hr 240 mg PO DAILY Qty: 90 3RF Rx Instructions: TAKE 1 CAPSULE EVERY DAY Primary Care Provider: Christopher Bonilla Referrals: Christopher Bonilla MD [Primary Care Provider] - Print Language: Libyan What to do if you have Problems For any increased pain, shortness of breath, bleeding, nausea or vomiting, chestpain, or any unexpected problems, contact your Primary Care Provider. Call [facility] ([phone]) or report to the closest Emergency Room. Call 911 if necessary. 01/22/25 1654 <Electronically signed by Juan Vines MD> Cosigner Signature (if applicable): CC: Dr. Christopher Bonilla MD ~ Signed [facility] Work Phone: 1(832) 822-132908-20-2025 Discharge summary [facility] Medical Records Department [address] [place] [address] Emergency Department Summary 01/22/25 MR#: [id number] Acct: [id number] Name: LIBRA CEJA Rep #:[id number] : 1945 79 From: Juan Vines MD PCP: Dr. Christopher Bonilla MD Status:REG E R Location: ED HPI History of Present Illness Chief Complaint: Nausea/Vomiting Informant: patient Onset/Context/Timing Onset: Today and Hours Context: Gradual Onset Timing: Continuous Current Severity: Mild Maximum Severity: Mild Narrative Narrative: 79-year-old female history of A-fib on Coumadin, hypertension, COPD, known gallstones. Prior hysterectomy. States this morning around 10:00 she had feverand chills had nausea and vomiting. Denies anydysuria. Mild epigastric discomfort. Said she felt fine most of the day yesterday. Prior similar symptoms: Yes Recent Illness/Hospitalization: No PFSH PFSH Medical History Mitral valve insufficiency Mata's esophagus with dysplasia Wears glasses Ambulates with cane Arthritis High cholesterol Difficulty chewing Shortness of breath on exertion History of echocardiogram Cardiology follow-up encounter Bloating Abdominal pain FDC current use of amiodarone Paroxysmal atrial fibrillation Essential hypertension Mixed hyperlipidemia Chronic atrial fibrillation with RVR Exudative pleural effusion Renal cyst Hepatic congestion Recurrent pleural effusion Leukocytosis Embolic infarction Renal infarction Splenic infarction Substance abuse Goiter Non-smoker Atrial fibrillation Congestive heart failure (CHF) Hypertension Rheumatoid arthritis COPD (chronic obstructive pulmonary disease) Pleural effusion Rheumatoid arthritis Paroxysmal atrial fibrillation with RVR Subtherapeutic international normalized ratio (INR) Chronic anticoagulation Pulmonary hypertension Hypokalemia Hyponatremia PNA (pneumonia) COPD (chronic obstructive pulmonary disease) PAF (paroxysmal atrial fibrillation) HTN (hypertension) GERD (gastroesophageal reflux disease) HLD (hyperlipidemia) Marfans syndrome Home Medications ?Medication ?Instructions ?Recorded ?Last Taken ?Type calcium carbonate 600 mg PO DAILY SUPPLEMENT 0 06/19/19 07/12/21 History multivitamin 1 tab PO DAILY SUPPLEMENT 07/12/21 History albuterol sulfate 90 mcg/actuation 2 puff inhalation Q 4H PRN SOB 01/09/20 1 Week Ago History aerosol inhaler ~06/30/21 amiodarone 200 mg tablet 100 mg (1/2 x 200 mg) PO TEJ LY #45 02/23/24 Unknown Rx tabs diltiazem HCl 240 mg 240 mg PO DAILY HEART #90 ca ps 02/23/24 Unknown Rx capsule,extended release 24 hr furosemide 40 mg tablet 40 mg PO QDAY 12/05/24 Unkno wn History omeprazole 20 mg capsule,delayed 20 mg PO BID 12/05/24 Unknown History release potassium chloride 20 mEq 20 meq PO QDAY 12/05/24 Unkn own History tablet,extended release metoprolol tartrate 25 mg tablet 25 mg PO BID 01/22/25 Unknown History warfarin 2 mg tablet See Rx Instructions PO .COMP ESTRELLA 01/22/25 Unknown History warfarin 3 mg tablet 3 mg PO .COMPLEX 01/22/25 Un known History Allergy/AdvReac Type Severity Reaction Status Date / Time pneumococcal vaccine (From Allergy Severe Rash Verified 01/22/25 13:22 Prevnar 13 (PF)) Latex, Natural Rubber Allergy Rash Verified 01/22/25 13:22 rosuvastatin calcium (From Allergy myalgias Verified 01/22/25 13:22 Crestor) ibuprofen AdvReac Nausea Verified 01/22/25 13:22 Family History Mother Diabetes Colon cancer Marfan syndrome Sister Diabetes Hypertension Brother Marfan syndrome COPD (chronic obstructive pulmonary disease) Brother Marfan syndrome Father Gastric ulcer GERD (gastroesophageal reflux disease) Surgical History History of eye surgery History of hysterectomy Social History household members: spouse and children housing: house Smoking Status: Never smoker alcohol intake: never substance use type: does not use caffeine: Yes Type: coffee Number of servings: 4 ROS ROS ED ROS Narrative Subjective fever. Nausea vomiting. Mild epigastric abdominal discomfort. Constitutional Constitutional ED: Reports fever(s) and subjective Eyes Eyes: Denies blurry vision ENT ENT ED: Denies ear pain Cardiovascular Cardiovascular: Denies chest pain Respiratory/Chest Respiratory/Chest: Denies cough or dyspnea Gastrointestinal Gastrointestinal: Reports abdominal pain, nausea and vomiting; Denies constipation, diarrhea or melena Genitourinary Genitourinary ED: Denies dysuria or hematuria Musculoskeletal Musculoskeletal: Denies arthralgias Integumentary Denies abscess Neurologic Neurologic: Denies headache(s) Psychiatric Psychiatric: Denies anxiety Endocrine Endocrinology: Denies cold intolerance Hematologic/Lymphatic Hematologic/Lymphatic: Reports none Allergic/Immunologic Allergic/Immunologic ED: Denies mouth swelling, tongue swelling or urticaria EXAM Physical Exam Narrative Exam Narrative: Significant phimosis upright in bed. Vital signs stable she has a temperature 99.9 orally. Pulse ox92% on room air no hypoxia. H EENT exam pupils round react light. Moist mucous membranes. No facialdroop. Neck nontender. Lungs clear to auscultation bilaterally. Cough. Heart rate about 90 no murmur. Chest wall and ribs nontender. Abdomen soft mild tenderness epigastric. No rebound guarding or rigidity. No specific right upper or right lower quadrant tenderness. No obstruction or distention. Nohernia or mass. Moving all 4 extremities. Nontender. No rash. Neurologically she is awake and alert. Answering questions following commands. Daughter at bedside. Const Vital Signs: 01/22/25 13:21 01/22/25 13:59 01/22/25 15:23 Temperature 99.9 F H 99.5 F H Temperature Source Oral Oral Pulse Rate 88 68 Respiratory Rate 16 16 Blood Pressure 154/71 H 131/69 H Blood Pressure Mean 98 89 Pulse Ox 92 85 97 Oxygen Delivery Method Room Air Room Air Nasal Cannula Oxygen Flow Rate (L/min) 2 01/22/25 16:26 Temperature 99.2 F H Temperature Source Oral Pulse Rate 66 Respiratory Rate 17 Blood Pressure 132/57 H Blood Pressure Mean 82 Pulse Ox 95 Oxygen Delivery Method Nasal Cannula Oxygen Flow Rate (L/min) 2 Positive well nourished and well developed; Negative for cachectic, contracturesor unkempt General Appearance ED: well developed and NAD; Negative for unkempt, cachectic, contractures, cyanotic, diaphoretic or pallor Nutritional Appearance: Negative for cachectic HEENT Reports moist mucous membranes Eyes PERRL and EOMs intact bilaterally Neck no lymphadenopathy, supple and no JVD Chest Wall inspection of chest normal and palpation of chest normal Resp normal respiratory effort and clear to auscultation bilaterally Cardio regular rate, regular rhythm, S1 normal heart sound, S2 normal heart sound and no murmurs GI normal to inspection, nondistended, normoactive bowel sounds, non-distended and no masses; Negativefor non-tender GI Narrative: Mild epigastric tenderness. No rebound guarding or rigidity. No hernia or mass. No localizing McBurney's per tenderness or Gtz sign. Inspection: Negative for abdominal distention Auscultation: normoactive bowel sounds Palpation: soft and tender; Negative for guarding, splenomegaly, mass or reboundtenderness present Back/Spine no CVA tenderness Back/Spine Narrative: significant kyphosis of her spine. General Back: Negative for CVA tenderness Cervical Spine: Negative for cervical spine tenderness Thoracic Spine / Upper Back: Negative for thoracic spinal tenderness or paraspinal muscle tenderness Lumbar Spine / Lower Back: Negative for lumbar spinal tenderness Extremity normal to inspection General Extremety ED: Negative for edema or tenderness General Extremity: Negative for edema Neuro oriented x3 and CN's II-XII intact bilaterally Sensorium / Orientation: alert Motor Exam: strength 5/5 throughout Psych mental status grossly normal Appearance: Negative for unkempt Attitude: No agitated Mood & Affect: Negative for depressed, anxious or tearful Skin no rashes or lesions noted, no wounds and skin turgor normal General Skin Exam: Negative for jaundice or pallor Lesions: No lesion noted Rashes: No rashes noted Trauma: Negative for abrasion Wounds: Negative for wounds noted MDM MDM MDM Narrative Medical decision making narrative: 79-year-old female subjective for nausea vomiting. Only mild abdominal discomfort. This could be a viral syndrome, UTI or intra-abdominal pathology. CAT scan and labs will be done. She be given Zofran for nausea IV fluids. Tylenol for her fever. Repeat exam at around 3:33 PM patient is doing better. Currently she is on oxygen while in the emergency department she desaturated to the mid 80s. She said she has had a cough recently. She denies any chest pain. We went over hertest results. I think she has a viral syndrome I am sending a COVID and flu swab. It has been ordered but not returned. I repeat exam she is wheezing she will be given DuoNeb and albuterol aerosols and IV Solu-Medrol she is a history of COPD but she is not on oxygen athome. I will speak to the hospitalist aboutadmission. History & Record Review Discussion w/independent historian: Patient and Family Additional record(s) reviewed:: Prior inpatient record, Prior outpatient record,Prior ED visit and Prior labs Lab Data Attestation: I reviewed the patient's lab results. Lab results narrative: CBC shows a white count of 13.5. H&H 14 and 42. Platelets 289. PT/INR of 24 and 2.1 she is on warfarin. Electrolytes show sodium 130. Gap 14. BUN and creatinine of 10 and 0.7. Glucose 116. Liver enzymes unremarkable other alk phos of 109. Lipase 23. Urinalysis negative. No white or red cells. Rare bacteria. No nitrates CT abdomen pelvis shows chronic changes. Right pleural effusion. Chest x-ray shows chronic changes. Labs: Laboratory Results - last 24 hr 01/22/25 01/22/25 13:35 14:57 WBC 13.5 H RBC 4.96 Hgb 14.2 Hct 42.8 MCV 86.3 MCH 28.6 MCHC 33.2 RDW Std Deviation 46.0 H RDW Coeff of Angelo 14.6 Plt Count 289 MPV 9.4 Immature Gran % (Auto) 0.500 Neut % (Auto) 84.4 H Lymph % (Auto) 5.2 L Tate % (Auto) 9.4 Eos % (Auto) 0.1 Baso % (Auto) 0.4 Absolute Neuts (auto) 11.4 H Absolute Lymphs (auto) 0.70 L Nucleated RBC % 0 PT 24.3 H INR 2.1 Sodium 130 L Potassium 4.0 Chloride 94 L Carbon Dioxide 22.0 Anion Gap 14 BUN 10 Creatinine 0.79 Estim Creat Clear Calc 43.03 L Est GFR (MDRD) Non-Af 77 BUN/Creatinine Ratio 13.0 Glucose 116 H Calcium 8.6 Total Bilirubin 1.14 AST 20 ALT 11 Alkaline Phosphatase 109 H Total Protein 7.6 Albumin 3.9 Globulin 3.7 Albumin/Globulin Ratio 1.0 Lipase 23 Urine Color Straw Urine Clarity Clear Urine pH 6.5 Ur Specific [place] 1.010 Urine Protein Negative Urine Glucose (UA) Normal Urine Ketones Negative Urine Occult Blood Negative Urine Nitrite Negative Urine Bilirubin Negative Urine Urobilinogen Normal Ur Leukocyte Esterase Negative Urine RBC 0-5 SEEN Urine WBC 0-5 SEEN Ur Squamous Epith Cells 0-5 SEEN Urine Bacteria RARE Urine Mucus 0 SEEN Radiography Chest X-Ray - ED: Read by ED Physician, Read by Radiologist, Mediastinum, Bony Structures, Chronic Changes and Cardiomegaly Diagnostic Testing: Clinical Impression(s) from Imaging Studies Chest X-Ray 01/22/25 13:41 IMPRESSION: Cardiomegaly and CHF. Reading Location: [facility] Abdomen/Pelvis CT 01/22/25 14:06 IMPRESSION: Small right pleural effusion with bibasilar scarring. Hepatomegaly. Stable small hepatic cysts. Multiple layering gallstones. Sigmoid diverticulosis. Reading Location: [facility] Chest x-ray, 2 views, AP and lateral, interpreted by by myself and the radiologist. Shows cardiomegaly. Chronic changes. No obvious pneumonia. No obvious effusion on chest x-ray. Discharge Plan Triage Chief Complaint: Nausea/Vomiting ED Provider: Juan Vines Dx/Rx/DC Orders Prescriptions: No Action multivitamin Tablet 1 tab PO DAILY calcium carbonate 600 mg calcium (1,500 mg) tablet 600 mg PO DAILY albuterol sulfate 90 mcg/actuation HFA aerosol inhaler 2 puff INHALATION Q4H PRN (Reason: SOB) omeprazole 20 mg capsule,delayed release(DR/EC) 20 mg PO BID furosemide 40 mg tablet 40 mg PO QDAY Patient Comments: DOES NOT TAKE ALL THE TIME ONLY WHEN SHE FEELS LIKE SHE NEEDS IT OF 01/22/2025 potassium chloride 20 mEq tablet extended release 20 meq PO QDAY warfarin 3 mg tablet 3 mg PO .COMPLEX Rx Instructions: TAKE ONE, 3 MG TABLET ON MONDAY, MONDAY, MONDAY, MONDAY, AND MONDAY; warfarin 2 mg tablet See Rx Instructions PO .COMPLEX Rx Instructions: TAKE 1 TABLET BY MOUTH ON MONDAY AND MONDAY AND TAKE 3 MG ALL OTHER DAYS OR DIRECTED PENDING LAB RESULTS metoprolol tartrate 25 mg tablet 25 mg PO BID amiodarone 200 mg tablet 100 mg PO DAILY Qty: 45 3RF diltiazem HCl 240 mg capsule,extended release 24hr 240 mg PO DAILY Qty: 90 3RF Rx Instructions: TAKE 1 CAPSULE EVERY DAY Primary Care Provider: Christopher Bonilla Referrals: Christopher Bonilla MD [Primary Care Provider] - Print Language: Libyan What to do if you have Problems For any increased pain, shortness of breath, bleeding, nausea or vomiting, chestpain, or any unexpected problems, contact your Primary Care Provider. Call [facility] ([phone]) or report tothe closest Emergency Room. Call 911 if necessary. 01/22/25 1654 Cosigner Signature (if applicable): CC: Dr. Christopher Bonilla MD ~ Signed [facility]08-20-2025 Radiology Diagnostic study note [facility] Imaging Services [address] [place] [id number] Abdomen/Pelvis W IV Cont ONLY MR#: [id number] Acct: [id number] Name: LIBRA CEJA Rep #: [id number] : 1945 F 79 From: Moise Jacobo MD PCP: Dr. Christopher Bonilla MD Status: REG E R Study:Abdomen/Pelvis W IV Cont ONLY Date of E xam: 01/22/25 Exam# [id number] Ordering Dr: Jayson Vines MD PROCEDURE: ABDOMEN/PELVIS W IV CONT ONLY 01/22/2025 REASON FOR EXAM: ABD PAIN AND FEVER TECHNIQUE: ABDOMEN/PELVIS W IV CONT ONLY Coronal and Sagittal reconstruction series were provided. CONTRAST: Isovue-300 VOLUME: 100 mL One or more dose reduction techniques were used (e.g., Automated exposure control, adjustment of the mA and/or kV according to patient size, use of iterative reconstruction technique. RADIATION DOSE SUMMARY: CTDlvol: 8.7 mGy DLP: 317.85 mGycm COMPARISON: Prior study dated January 02, 2025 FINDINGS: Lung bases: Stable increased linear markings at the lung bases suggestive of scarring. Minimal right pleural thickening. This is unchanged. Coronary artery calcification. Liver: Hepatomegaly. Stable scattered small hepatic calcifications. Gallbladder: Multiple small layering gallstones along the dependent portion of the gallbladder lumen. Spleen: Normal size. Pancreas: Normal size without evidence of mass surrounding inflammation or ductal dilation. Adrenals: Unremarkable Kidneys: Normal renal sizes. No hydronephrosis. Bladder: The urinary bladder is distended. Reproductive Organs: Prior hysterectomy. Adnexal regions are unremarkable. Bowel: Colonic diverticulosis without diverticulitis. Appendix: The appendix is not identified. There is no inflammatory process identified in the right lower quadrant to suggest appendicitis. Lymph nodes: Unremarkable. Vasculature: Mild diffuse atherosclerotic calcifications are noted. Peritoneum / Retroperitoneum: Unremarkable Bones: Stable loss of height of the T11 vertebrae. CT/Abdomen/Pelvis W IV Cont ONLY IMPRESSION: Small right pleural effusion with bibasilar scarring. Hepatomegaly. Stable small hepatic cysts. Multiple layering gallstones. Sigmoid diverticulosis. Reading Location: [id number] CC: Dr. Juan Vines MD; Dr. Christopher Bonilla MD ~ Signal Worker Helper: Signed [facility]08-20-2025 Radiology Diagnostic study note [facility] Imaging Services [address] [place] [address] Chest PA and Lateral MR#: [id number] Acct: [id number] Name: LIBRA CEJA Rep #: [id number] : 1945 F 79 From: Moise Jacobo MD PCP: Dr. Christopher Bonilla MD Status: PRE E R Study:Chest PA and Lateral Date of Exam: 01/22/25 Exam# [id number] Ordering Dr: Jayson Vines MD PROCEDURE: CHEST PA AND LATERAL 01/22/2025 REASON FOR EXAM: FEVER TECHNIQUE: CHEST PA AND LATERAL COMPARISON: Comparison is made with prior study dated December 20, 2024. FINDINGS: Hardware: EKG electrodes are seen. Heart: Cardiomegaly. Mediastinum: Atherosclerotic calcification of the aortic arch. Lungs: There is evidence of vascular congestion and CHF superimposed on mild basilar scarring. Bones: Degenerative changes are identified within the thoracic spine. Increasedkyphosis. RAD/Chest PA and Lateral IMPRESSION: Cardiomegaly and CHF. Reading Location: [id number] CC: Dr. Juan Vines MD; Dr. Christopher Bonilla MD ~ Signal Worker Helper: Signed [facility]08-14-2025 History of Present illness Narrative* Mimi Encinas APRN.CNP - 01/16/2025 5:16 PM EDT Agree with anticoag. * Yanely Posadas RN - 01/16/2025 2:47 PM EDT patient had inr completed at [facility] patients inr is 2.6 (patients inr [...] 1 month (02/21/25) for follow up INR. documented in this encounterUniversity [facility] Discharge summary [facility] Medical Records Department [address] [place] [address] Emergency Department Summary 01/02/25 MR#: [id number] Acct: [id number] Name: LIBRA CEJA Rep #:[id number] : 1945 79 From: Pablo winkler DO PCP: Dr. Christopher Bonilla MD Status:REG E R Location: ED HPI History of Present Illness Chief Complaint: Diarrhea Narrative Narrative: Chief complaint and HPI: Diarrhea. 79-year-old female with past medical historyof CHF, atrial fibrillation on warfarin, HTN presents for evaluation of diarrhea. Patient states for the past 4 days shehas been having watery diarrhea. Nonbloody or dark. Endorses intermittent abdominal pain. Denies anyfever, chills, chest pain, URI, shortness of breath, nausea, vomiting, dysuria. Does endorse decreased p.o. intake. Denies any recent antibiotic use. Denies any sick contacts. Denies any tap water orrecent ingestion of lakes/hummel. Review of systems: See HPI Medications: As listed on the chart Allergies: As listed on the chart PFSH: Per chart Vital signs: As listed on the chart. Reviewed. Physical exam: Gen: A&O x3, NAD Head: Normocephalic, atraumatic Eyes: No sclera icterus, conjunctiva clear ENT: Dry mucous membranes Neck: Trachea midline, No JVD CV: RRR, no murmurs, no peripheral edema Resp: Lungs CTA BL, no w/r/c GI: Abd soft, non-distended, non-tender, no r/r/g Musc: Full ROM, no deformity Skin: Warm, dry Neuro: Alert, oriented, grossly intact, sensation intact Psych: Cooperative, appropriate mood and affect [facility] Medical History (Reviewed 12/05/24 @ 15:24 by Hima Tijerina CLICKING MACHINE OPERATOR, CLICKING MACHINE OPERATOR-C) Mitral valve insufficiency Mata's esophagus with dysplasia Wears glasses Ambulates with cane Arthritis High cholesterol Difficulty chewing Shortness of breath on exertion History of echocardiogram Cardiology follow-up encounter Bloating Abdominal pain 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 Paroxysmal atrial fibrillation Essential hypertension Mixed hyperlipidemia Chronic atrial fibrillation with RVR Exudative pleural effusion Renal cyst Hepatic congestion Recurrent pleural effusion Leukocytosis Embolic infarction Renal infarction Splenic infarction Substance abuse Goiter Non-smoker Atrial fibrillation Congestive heart failure (CHF) Hypertension Rheumatoid arthritis COPD (chronic obstructive pulmonary disease) Pleural effusion Rheumatoid arthritis Paroxysmal atrial fibrillation with RVR Subtherapeutic international normalized ratio (INR) Chronic anticoagulation Pulmonary hypertension Hypokalemia Hyponatremia PNA (pneumonia) COPD (chronic obstructive pulmonary disease) PAF (paroxysmal atrial fibrillation) HTN (hypertension) GERD (gastroesophageal reflux disease) HLD (hyperlipidemia) Marfans syndrome Home Medications ?Medication ?Instructions ?Recorded ?Last Taken ?Type calcium carbonate 600 mg PO DAILY SUPPLEMENT 0 06/19/19 07/12/21 History multivitamin 1 tab PO DAILY SUPPLEMENT 07/12/21 History Handicap placard #1 ea 01/07/20 Unknown Rx albuterol sulfate 90 mcg/actuation 2 puff inhalation Q 4H PRN SOB 01/09/20 1 Week Ago History aerosol inhaler ~06/30/21 amiodarone 200 mg tablet 100 mg (1/2 x 200 mg) PO TEJ LY #45 02/23/24 Unknown Rx tabs diltiazem HCl 240 mg 240 mg PO DAILY HEART #90 ca ps 02/23/24 Unknown Rx capsule,extended release 24 hr furosemide 40 mg tablet 40 mg PO QDAY 12/05/24 Unkno wn History metoprolol tartrate 50 mg tablet 50 mg PO BID 12/05/24 Unknown History omeprazole 20 mg capsule,delayed 20 mg PO BID 12/05/24 Unknown History release potassium chloride 20 mEq 20 meq PO QDAY 12/05/24 Unkn own History tablet,extended release warfarin 4 mg tablet See Rx Instructions PO .COMP ESTRELLA 12/05/24 Unknown History AFIB Allergy/AdvReac Type Severity Reaction Status Date / Time pneumococcal vaccine (From Allergy Severe Rash Verified 01/02/25 11:01 Prevnar 13 (PF)) Latex, Natural Rubber Allergy Rash Verified 01/02/25 11:01 rosuvastatin calcium (From Allergy myalgias Verified 01/02/25 11:01 Crestor) ibuprofen AdvReac Nausea Verified 01/02/25 11:01 Family History Mother Diabetes Colon cancer Marfan syndrome Sister Diabetes Hypertension Brother Marfan syndrome COPD (chronic obstructive pulmonary disease) Brother Marfan syndrome Father Gastric ulcer GERD (gastroesophageal reflux disease) Surgical History History of eye surgery History of hysterectomy Social History household members: spouse and children housing: house Smoking Status: Never smoker alcohol intake: never substance use type: does not use caffeine: Yes Type: coffee Number of servings: 4 EXAM Physical Exam Const Vital Signs: 01/02/25 11:00 01/02/25 13:00 Temperature 98.3 F Temperature Source Oral Pulse Rate 69 67 Respiratory Rate 18 18 Blood Pressure 146/67 H 152/57 H Blood Pressure Mean 93 88 Pulse Ox 93 92 Oxygen Delivery Method Room Air Room Air MDM MDM MDM Narrative Medical decision making narrative: 79-year-old female with past medical history of CHF, atrial fibrillation on warfarin, HTN presents for evaluation of diarrhea. Nonbloody. Associated symptoms are decreased p.o. intake and episodic abdominal cramping. Differential diagnosis includes but is not limited to viral gastroenteritis, colitis, diverticulitis, electrolyte abnormality, STEVE, UTI. NS bolus ordered. Abdominal pain workup ordered including CT abdomen pelvis. CBC without leukocytosis or anemia. CMP relatively unremarkable without significant electrolyte abnormality or STEVE. No transaminitis. Lipase unremarkable. UA negative for UTI. Negative for ketones. CT abdomen pelvis shows stable hepatic cyst. Hepatomegaly. Multiple sma ll gallstones. Sigmoid diverticulosis withoutdiverticulitis. At this point in time, no clear etiology to explain the patient's diarrhea. She has not had diarrhea here in the emergency department. Patient can tolerate p.o. intake. Follow-up outpatient with primary care physician. Suspect viral gastroenteritis. Return back to the ED if symptoms change or worsen. Impression: 1. Diarrhea suspect viral Lab Data Labs: Laboratory Results - last 24 hr 01/02/25 01/02/25 11:37 13:14 WBC 8.1 RBC 4.67 Hgb 13.5 Hct 40.8 MCV 87.4 MCH 28.9 MCHC 33.1 RDW Std Deviation 45.2 H RDW Coeff of Angelo 14.2 Plt Count 267 MPV 9.1 Immature Gran % (Auto) 0.200 Neut % (Auto) 75.9 H Lymph % (Auto) 10.2 L Tate % (Auto) 12.7 H Eos % (Auto) 0.5 Baso % (Auto) 0.5 Absolute Neuts (auto) 6.2 Absolute Lymphs (auto) 0.83 Nucleated RBC % 0 Sodium 137 Potassium 4.0 Chloride 103 Carbon Dioxide 23.0 Anion Gap 11 BUN 14 Creatinine 0.88 Estim Creat Clear Calc 39.12 L Est GFR (MDRD) Non-Af 67 BUN/Creatinine Ratio 15.7 Glucose 108 H Calcium 8.8 Total Bilirubin 0.38 AST 19 ALT 12 Alkaline Phosphatase 114 H Total Protein 6.9 Albumin 3.8 Globulin 3.1 Albumin/Globulin Ratio 1.2 Lipase 34 Urine Color Yellow Urine Clarity Clear Urine pH 6.0 Ur Specific [place] 1.010 Urine Protein 30 H Urine Glucose (UA) Normal Urine Ketones Negative Urine Occult Blood 10 H Urine Nitrite Negative Urine Bilirubin Negative Urine Urobilinogen Normal Ur Leukocyte Esterase Negative Urine RBC 0 SEEN Urine WBC 0 SEEN Ur Squamous Epith Cells 0 SEEN Urine Bacteria 0 SEEN Urine Mucus 0 SEEN Radiography Diagnostic Testing: Clinical Impression(s) from Imaging Studies Abdomen/Pelvis CT 01/02/25 12:16 IMPRESSION: Stable hepatic cysts. Hepatomegaly. Multiple small gallstone seen along the dependent portion the gallbladder lumen. Sigmoid diverticulosis without evidence of diverticulitis. Reading Location: [id number] Discharge Plan Triage Chief Complaint: Diarrhea ED Provider: Pablo Watson Dx/Rx/DC Orders Clinical Impression: Diarrhea Instructions: ED Diarrhea, Unknown Cause, ED Diet Vomiting Diarrhea Prescriptions: No Action multivitamin Tablet 1 tab PO DAILY calcium carbonate 600 mg calcium (1,500 mg) tablet 600 mg PO DAILY (DME) Handicap placard Qty: 1 0RF Rx Instructions: Lifetime handicap placard albuterol sulfate 90 mcg/actuation HFA aerosol inhaler 2 puff INHALATION Q4H PRN (Reason: SOB) metoprolol tartrate 50 mg tablet 50 mg PO BID omeprazole 20 mg capsule,delayed release(DR/EC) 20 mg PO BID warfarin 4 mg tablet See Rx Instructions PO .COMPLEX Rx Instructions: 2mg PO Mon & Wed, 3mg PO all other days furosemide 40 mg tablet 40 mg PO QDAY potassium chloride 20 mEq tablet extended release 20 meq PO QDAY amiodarone 200 mg tablet 100 mg PO DAILY Qty: 45 3RF diltiazem HCl 240 mg capsule,extended release 24hr 240 mg PO DAILY Qty: 90 3RF Rx Instructions: TAKE 1 CAPSULE EVERY DAY Primary Care Provider: Christopher Bonilla Referrals: Christopher Bonilla MD [Primary Care Provider] - 3-5 Days Activity Restrictions/Additional Instructions: Follow-up with primary care physician. Make sure that you drink plenty of fluids. Return back to the ED symptoms change or worsen. Print Language: Libyan Disposition Disposition: Home, Self Care What to do if you have Problems For any increased pain, shortness of breath, bleeding, nausea or vomiting, chestpain, or any unexpected problems, contact your Primary Care Provider. Call [facility] ([phone]) or report tothe closest Emergency Room. Call 911 if necessary. 01/02/25 1417 Cosigner Signature (if applicable): CC: Dr. Christopher Bonilla MD ~ Signed [facility]07-31-2025 Discharge summary Author Pablo Watson [facility] Note Date/Time January 02, 2025 2:17 pm [facility] Medical Records Department [address] [place] [address] Emergency Department Summary 01/02/25 MR#: [id number] Acct: [id number] Name: LIBRA CEJA Rep #:[id number] : 1945 79 From: Pablo winkler DO PCP: Dr. Christopher Bonilla MD Status:REG E R Location: ED HPI History of Present Illness Chief Complaint: Diarrhea Narrative Narrative: Chief complaint and HPI: Diarrhea. 79-year-old female with past medical historyof CHF, atrial fibrillation on warfarin, HTN presents for evaluation of diarrhea. Patient states for the past 4 days she has been having watery diarrhea. Nonbloody or dark. Endorses intermittent abdominal pain. Denies anyfever, chills, chest pain, URI, shortness of breath, nausea, vomiting, dysuria. Does endorse decreased p.o. intake. Denies any recent antibiotic use. Denies any sick contacts. Denies any tap water or recent ingestion of lakes/hummel. Review of systems: See HPI Medications: As listed on the chart Allergies: As listed on the chart PFSH: Per chart Vital signs: As listed on the chart. Reviewed. Physical exam: Gen: A&O x3, NAD Head: Normocephalic, atraumatic Eyes: No sclera icterus, conjunctiva clear ENT: Dry mucous membranes Neck: Trachea midline, No JVD CV: RRR, no murmurs, no peripheral edema Resp: Lungs CTA BL, no w/r/c GI: Abd soft, non-distended, non-tender, no r/r/g Musc: Full ROM, no deformity Skin: Warm, dry Neuro: Alert, oriented, grossly intact, sensation intact Psych: Cooperative, appropriate mood and affect [facility] Medical History (Reviewed 12/05/24 @ 15:24 by Hima Tijerina CLICKING MACHINE OPERATOR, CLICKING MACHINE OPERATOR-C) Mitral valve insufficiency Mata's esophagus with dysplasia Wears glasses Ambulates with cane Arthritis High cholesterol Difficulty chewing Shortness of breath on exertion History of echocardiogram Cardiology follow-up encounter Bloating Abdominal pain 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 Paroxysmal atrial fibrillation Essential hypertension Mixed hyperlipidemia Chronic atrial fibrillation with RVR Exudative pleural effusion Renal cyst Hepatic congestion Recurrent pleural effusion Leukocytosis Embolic infarction Renal infarction Splenic infarction Substance abuse Goiter Non-smoker Atrial fibrillation Congestive heart failure (CHF) Hypertension Rheumatoid arthritis COPD (chronic obstructive pulmonary disease) Pleural effusion Rheumatoid arthritis Paroxysmal atrial fibrillation with RVR Subtherapeutic international normalized ratio (INR) Chronic anticoagulation Pulmonary hypertension Hypokalemia Hyponatremia PNA (pneumonia) COPD (chronic obstructive pulmonary disease) PAF (paroxysmal atrial fibrillation) HTN (hypertension) GERD (gastroesophageal reflux disease) HLD (hyperlipidemia) Marfans syndrome Home Medications ?Medication ?Instructions ?Recorded ?Last Taken ?Type calcium carbonate 600 mg PO DAILY SUPPLEMENT 0 06/19/19 07/12/21 History multivitamin 1 tab PO DAILY SUPPLEMENT 07/12/21 History Handicap placard #1 ea 01/07/20 Unknown Rx albuterol sulfate 90 mcg/actuation 2 puff inhalation Q 4H PRN SOB 01/09/20 1 Week Ago History aerosol inhaler ~06/30/21 amiodarone 200 mg tablet 100 mg (1/2 x 200 mg) PO TEJ LY #45 02/23/24 Unknown Rx tabs diltiazem HCl 240 mg 240 mg PO DAILY HEART #90 ca ps 02/23/24 Unknown Rx capsule,extended release 24 hr furosemide 40 mg tablet 40 mg PO QDAY 12/05/24 Unkno wn History metoprolol tartrate 50 mg tablet 50 mg PO BID 12/05/24 Unknown History omeprazole 20 mg capsule,delayed 20 mg PO BID 12/05/24 Unknown History release potassium chloride 20 mEq 20 meq PO QDAY 12/05/24 Unkn own History tablet,extended release warfarin 4 mg tablet See Rx Instructions PO .COMP ESTRELLA 12/05/24 Unknown History AFIB Allergy/AdvReac Type Severity Reaction Status Date / Time pneumococcal vaccine (From Allergy Severe Rash Verified 01/02/25 11:01 Prevnar 13 (PF)) Latex, Natural Rubber Allergy Rash Verified 01/02/25 11:01 rosuvastatin calcium (From Allergy myalgias Verified 01/02/25 11:01 Crestor) ibuprofen AdvReac Nausea Verified 01/02/25 11:01 Family History Mother Diabetes Colon cancer Marfan syndrome Sister Diabetes Hypertension Brother Marfan syndrome COPD (chronic obstructive pulmonary disease) Brother Marfan syndrome Father Gastric ulcer GERD (gastroesophageal reflux disease) Surgical History History of eye surgery History of hysterectomy Social History household members: spouse and children housing: house Smoking Status: Never smoker alcohol intake: never substance use type: does not use caffeine: Yes Type: coffee Number of servings: 4 EXAM Physical Exam Const Vital Signs: 01/02/25 11:00 01/02/25 13:00 Temperature 98.3 F Temperature Source Oral Pulse Rate 69 67 Respiratory Rate 18 18 Blood Pressure 146/67 H 152/57 H Blood Pressure Mean 93 88 Pulse Ox 93 92 Oxygen Delivery Method Room Air Room Air MDM MDM MDM Narrative Medical decision making narrative: 79-year-old female with past medical history of CHF, atrial fibrillation on warfarin, HTN presents for evaluation of diarrhea. Nonbloody. Associated symptoms are decreased p.o. intake and episodic abdominal cramping. Differential diagnosis includes but is not limited to viral gastroenteritis, colitis, diverticulitis, electrolyte abnormality, STEVE, UTI. NS bolus ordered. Abdominal pain workup ordered including CT abdomen pelvis. CBC without leukocytosis or anemia. CMP relatively unremarkable without significant electrolyte abnormality or STEVE. No transaminitis. Lipase unremarkable. UA negative for UTI. Negative for ketones. CT abdomen pelvis shows stable hepatic cyst. Hepatomegaly. Multiple small gallstones. Sigmoid diverticulosis withoutdiverticulitis. At this point in time, no clear etiology to explain the patient's diarrhea. She has not had diarrhea here in the emergency department. Patient can tolerate p.o. intake. Follow-up outpatient with primary care physician. Suspect viral gastroenteritis. Return back to the ED if symptoms change or worsen. Impression: 1. Diarrhea suspect viral Lab Data Labs: Laboratory Results - last 24 hr 01/02/25 01/02/25 11:37 13:14 WBC 8.1 RBC 4.67 Hgb 13.5 Hct 40.8 MCV 87.4 MCH 28.9 MCHC 33.1 RDW Std Deviation 45.2 H RDW Coeff of Angelo 14.2 Plt Count 267 MPV 9.1 Immature Gran % (Auto) 0.200 Neut % (Auto) 75.9 H Lymph % (Auto) 10.2 L Tate % (Auto) 12.7 H Eos % (Auto) 0.5 Baso % (Auto) 0.5 Absolute Neuts (auto) 6.2 Absolute Lymphs (auto) 0.83 Nucleated RBC % 0 Sodium 137 Potassium 4.0 Chloride 103 Carbon Dioxide 23.0 Anion Gap 11 BUN 14 Creatinine 0.88 Estim Creat Clear Calc 39.12 L Est GFR (MDRD) Non-Af 67 BUN/Creatinine Ratio 15.7 Glucose 108 H Calcium 8.8 Total Bilirubin 0.38 AST 19 ALT 12 Alkaline Phosphatase 114 H Total Protein 6.9 Albumin 3.8 Globulin 3.1 Albumin/Globulin Ratio 1.2 Lipase 34 Urine Color Yellow Urine Clarity Clear Urine pH 6.0 Ur Specific [place] 1.010 Urine Protein 30 H Urine Glucose (UA) Normal Urine Ketones Negative Urine Occult Blood 10 H Urine Nitrite Negative Urine Bilirubin Negative Urine Urobilinogen Normal Ur Leukocyte Esterase Negative Urine RBC 0 SEEN Urine WBC 0 SEEN Ur Squamous Epith Cells 0 SEEN Urine Bacteria 0 SEEN Urine Mucus 0 SEEN Radiography Diagnostic Testing: Clinical Impression(s) from Imaging Studies Abdomen/Pelvis CT 01/02/25 12:16 IMPRESSION: Stable hepatic cysts. Hepatomegaly. Multiple small gallstone seen along the dependent portion the gallbladder lumen. Sigmoid diverticulosis without evidence of diverticulitis. Reading Location: [id number] Discharge Plan Triage Chief Complaint: Diarrhea ED Provider: Pablo Watson Dx/Rx/DC Orders Clinical Impression: Diarrhea Instructions: ED Diarrhea, Unknown Cause, ED Diet Vomiting Diarrhea Prescriptions: No Action multivitamin Tablet 1 tab PO DAILY calcium carbonate 600 mg calcium (1,500 mg) tablet 600 mg PO DAILY (DME) Handicap placard Qty: 1 0RF Rx Instructions: Lifetime handicap placard albuterol sulfate 90 mcg/actuation HFA aerosol inhaler 2 puff INHALATION Q4H PRN (Reason: SOB) metoprolol tartrate 50 mg tablet 50 mg PO BID omeprazole 20 mg capsule,delayed release(DR/EC) 20 mg PO BID warfarin 4 mg tablet See Rx Instructions PO .COMPLEX Rx Instructions: 2mg PO Mon & Wed, 3mg PO all other days furosemide 40 mg tablet 40 mg PO QDAY potassium chloride 20 mEq tablet extended release 20 meq PO QDAY amiodarone 200 mg tablet 100 mg PO DAILY Qty: 45 3RF diltiazem HCl 240 mg capsule,extended release 24hr 240 mg PO DAILY Qty: 90 3RF Rx Instructions: TAKE 1 CAPSULE EVERY DAY Primary Care Provider: Christopher Bonilla Referrals: Christopher Bonilla MD [Primary Care Provider] - 3-5 Days Activity Restrictions/Additional Instructions: Follow-up with primary care physician. Make sure that you drink plenty of fluids. Return back to the ED symptoms change or worsen. Print Language: Libyan Disposition Disposition: Home, Self Care What to do if you have Problems For any increased pain, shortness of breath, bleeding, nausea or vomiting, chestpain, or any unexpected problems, contact your Primary Care Provider. Call [facility] ([phone]) or report to the closest Emergency Room. Call 911 if necessary. 01/02/25 1417 <Electronically signed by Pablo Watson DO> Cosigner Signature (if applicable): CC: Dr. Christopher Bonilla MD ~ Signed [facility] Work Phone: [phone] 160-436207-31-2025 Radiology Diagnostic study note [facility] Imaging Services [address], [place] [address] Abdomen/Pelvis W IV Cont ONLY MR#: [id number] Acct: [id number] Name: LIBRA CEJA Rep #: [id number] : 1945 F 79 From: Moise Jacobo MD PCP: Dr. Christopher Bonilla MD Status: REG E R Study:Abdomen/Pelvis W IV Cont ONLY Date of E xam: 01/02/25 Exam# [id number] Ordering Dr: Pablo Dodd DO PROCEDURE: ABDOMEN/PELVIS W IV CONT ONLY 01/02/2025 REASON FOR EXAM: DIARRHEA TECHNIQUE: ABDOMEN/PELVIS W IV CONT ONLY Coronal and Sagittal reconstruction series were provided. CONTRAST: Isovue-300 VOLUME: 100 mL One or more dose reduction techniques were used (e.g., Automated exposure control, adjustment of the mA and/or kV according to patient size, use of iterative reconstruction technique. RADIATION DOSE SUMMARY: CTDlvol: 11.95 mGy DLP: 330.66 mGycm COMPARISON: Prior study dated December 09, 2022. FINDINGS: Lung bases: Stable increased linear markings at the lung bases suggestive of scarring. Minimal pleural thickening. Coronary artery calcifications. Liver: Stable scattered small cysts in the liver. Hepatomegaly. Gallbladder: There are multiple small layering gallstones along the dependent portion of the gallbladder lumen. Spleen: Normal size. Pancreas: Diffuse fatty atrophy. Adrenals: Unremarkable Kidneys: Normal renal sizes. No hydronephrosis. Bladder: Unremarkable Reproductive Organs: Status post hysterectomy. Bowel: Fluid-filled nondilated small bowel loops. Multiple sigmoid diverticulosis. Appendix: The appendix is not identified. There is no inflammatory process identified in the right lower quadrant to suggest appendicitis. Lymph nodes: Unremarkable. Vasculature: Mild diffuse atherosclerotic calcifications are noted. Peritoneum / Retroperitoneum: No evidence of ascites. Bones: Loss of height of the T11 vertebrae. This is unchanged. Mild degenerative changes. CT/Abdomen/Pelvis W IV Cont ONLY IMPRESSION: Stable hepatic cysts. Hepatomegaly. Multiple small gallstone seen along the dependent portion the gallbladder lumen. Sigmoid diverticulosis without evidence of diverticulitis. Reading Location: [id number] CC: Dr. Pablo Watson DO; Dr. Christopher Bonilla MD ~ Signal Worker Helper: Signed [facility]07-21-2025 Telephone encounter Note* Telephone Encounter - Cadence Bustillo LPN - 12/23/2024 12:00 PM EDT View External Labs - Chemistry [ID [id number]] View External Labs - Hematology [ID [id number]] Labs results from labs ordered at visit with Gali. See scanned documents. [facility]07-21-2025 Miscellaneous Notes* Telephone Encounter - Cadence Bustillo LPN - 12/23/2024 12:00 PM EDT View External Labs - Chemistry [ID [id number]] View External Labs - Hematology [ID [id number]] Labs results from labs ordered at visit with Gali. See scanned documents. documented in this encounterUniversity Hospitals [facility] Center07-18-2025 Radiology Diagnostic study note [facility] Imaging Services [address] [place] [address] [id number] Chest PA and Lateral MR#: [id number] Acct: [id number] Name: LIBRA CEJA Rep #: [id number] : 1945 F 79 From: Ramesh Paige DO PCP: Dr. Christopher Bonilla MD Status: BHAVIK BLACMKON Study:Chest PA and Lateral Date of Exam: 12/20/24 Exam# [id number] Ordering Dr: Hima Tijerina NP CLICKING MACHINE OPERATOR-C PROCEDURE: CHEST PA AND LATERAL 12/20/2024 REASON FOR EXAM: AMIODARONE THERAPY TECHNIQUE: CHEST PA AND LATERAL COMPARISON: Chest x-ray dated 04/04/2022 and 01/28/2022. A CTA of the chest dated 04/04/2024 was also reviewed. FINDINGS: Hardware: None Heart: Heart is upper limits of normal in size. Mediastinum: Arteriosclerotic vascular disease and a tortuous ectatic aorta is noted. The aortic arch measures 3.7 cm. Pulmonary vasculature appears minimally prominent centrally and similar when compared to the prior study. Lungs: Chronic interstitial markings are noted in both lungs likely related to parenchymal scarring. The previously noted right pleural effusion has resolved. There are no pleural effusions or pneumonic infiltrates. There are no pneumothoraces. Bones: Diffuse osteopenia of the bony thorax is seen. There is a levoscoliosis of the lower cervical upper thoracic spine. There is increased kyphotic curvature of the thoracic spine. There is a decrease in height of 2 of the lower thoracic vertebral bodies. 1 is new and 1 is slightly worse when compared to the prior exam dated 04/04/2022. These are most likely related to osteoporotic compression fractures. Degenerative changes of both shoulders are noted. RAD/Chest PA and Lateral IMPRESSION: No acute cardiopulmonary process is identified radiographically. Reading Location: [id number] CC: JUAN R Tijerina; Dr. Christopher Bonilla MD ~ Signal Worker Helper: Signed [facility]07-11-2025 Instructions* Patient Instructions* Mimi Encinas APRN.EXTERNAL GRINDER TOOL - 12/13/2024 2:41 PM EDT - Stop taking atorvastatin; it has been [...] pulmonary function test and chest x-ray at [facility] as arranged by your hand inserter operator. - Complete the lab work for thyroid function and amiodarone monitoring at [facility] when you go foryour tests; these orders have been sent to [facility]. - If you decide you d like home health physical or occupational therapy [...] review all the medicines you take, even uzvo-gkw-npyxego medicines. As you get older, the way medicines work in your body can change. Some medicines, or combinations of medicines, can make you sleepy or dizzy andcan cause you to fall. 3. Have your [...] apply if you have certain medical conditions. documented in this encounterUniversity Hospitals [facility] Center07-11-2025 History of Present illness Narrative* Mimi Encinas APRN.CNP - 12/13/2024 2:33 PM EDT Images from the original note were not included. Chief Reason For Appointment Patient presents with: Medicare Wellness Exam Libra Ceja is a 79 year old female who presents for annual exam. Last office visit date: 05/31/2024 Accompanied By friend Have you had any critical events, hospital stays, ER visits, surgeries or procedures since your last visit here in our office: Yes, EGD yesterday Specialists/Other Healthcare Providers Seen: Patient Care Team: Christopher Bonilla MD as PCP - General (Family Medicine) Junaid Arriaga MD as Physician (Cardiology) Santos Calvin MD as Physician (Urology) Flaquito Mariee MD as Salon Sales Consultant (Pulmonary Disease) Christopher Bonilla MD as Home Care Provider (Family Medicine) Mera Langford MD as Referring Dalila Jensen APRN.EXTERNAL GRINDER TOOL as Director Of Public Health (Family Medicine) Mimi Encinas APRN.TRICIA as Director Of Public Health (Family Medicine) Concerns today: Fatigue, unsteady, upper arms aching intermittently since starting starting Lipitor in June HPI Pt. Feels that atorvastatin makes her achy, fatigued and dizzy Libra Ceja is a 79-year-old female with a [...] Regurgitation - 06/18/2021 Comment: 04/27/21 Echo at [facility]. Pulmonary Hypertension ([facility]) - 05/11/2021 Chronic Obstructive Pulmonary Disease (Hcc) - 04/28/2021 Comment: Dr Mariee released her from his care. Rheumatoid Arthritis, Unspecified (Hcc) - 04/28/2021 Comment: Has been stable. Not seen rheum in some time. Prediabetes - 09/25/2020 Thyroid Nodule - 05/11/2020 Comment: Seeing Abimael Evans Negative FNA 06/28-recommended repeat us in one year. Hypertension, Essential - 06/23/2015 Chronic Anticoagulation - 06/23/2015 Paroxysmal Atrial Fibrillation (Hcc) Comment: Sees [facility] Hyperlipidemia - 01/19/2011 Comment: Mildly elevated [...] intolerance PAST MEDICAL HISTORY Diagnosis Date A-fib ([facility]) Class 1 congestive heart failure, unspecified failure chronicity, systolic ([facility]) 11/21/2019 Dysphagia, unspecified(787.20) Esophageal reflux Esophagitis, unspecified Marfan's syndrome ([facility]) Moderate mitral regurgitation 06/18/2021 04/27/21 Echo at [facility]. Pleural effusion, right 05/05/2020 CXR 11/18/19 and [...] ABDOMINAL HYSTERECT W/WO RMVL TUBE OVARY Hysterectomy, [facility] Medication List Current Outpatient Medications Medication Sig Dispense Refill warfarin (COUMADIN) 2 mg tablet take 2mg Mon, Wed and 3mg all other days or as directed pending labresults 30 tablet 5 metoprolol tartrate, short acting, (LOPRESSOR) 50 mg tablet Take 1 tablet by mouth two times a day.180 tablet 3 atorvastatin (LIPITOR) 20 mg tablet [...] warfarin (COUMADIN) 3 mg tablet 2mg Mon and 3mg all [...] 1 Each 0 WALKER ROLLATOR SEAT WITH 6" WHEELS - RED Daily use R26.81 Gait instability (primary encounter diagnosis) 1 Each 0 COMPOUNDED PRESCRIPTION Compression stockings 20-30mmHg 2 pair 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 Weight Summary: Weight Change: Body mass index is 24.52 kg/m . Last Wt 12/13/24 : 54.4 kg (120 [...] - Creatinine, gfr - LFTs Lipid: WBC, H&H, Platelets: A1C: Vitamin D: Other: A/P: 1. [...] X-ray. - Results to be [facility] to [facility] for review. 10. Chronic obstructive pulmonary disease, unspecified COPD type (HCC) (J44.9) - Scheduled for pulmonary function test and chest X-ray. - Results to be sent to [facility] for review. 11. Stage 3 [...] involving unspecified site, unspecified whether rheumatoid factor present(HCC) (M06.9) - Well-controlled. - Continue current management. [...] x day Follow Up Plans: 6 m Libra Ceja is a 79 year old female [...] record. Current care team: Patient Care Team: Christopher Bonilla MD as PCP - General (Family Medicine) Junaid Arriaga MD as Physician (Cardiology) Santos Calvin MD as Physician (Urology) Flaquito Mariee MD as Salon Sales Consultant (Pulmonary Disease) Christopher Bonilla MD as Home Care Provider (Family Medicine) Mera Langford MD as Referring Dalila Jensen APRN.CNP as Director Of Public Health (Family Medicine) Mimi Encinas APRN.CNP as Director Of Public Health (Family Medicine) Medical/Family history review Reviewed and [...] Functional Observation Was the patient's Timed Up & Go test unsteady or >= 12 seconds? Yes. Advance Care Planning Patient did not wish or was not able to name a surrogate decision maker or provide an advance care plan Has information but not wanting Measurements BP 148/50 Pulse (!) 55 Ht 149 cm (4' 10.66") Wt 54.4 kg (120 lb) SpO2 94% BMI 24.52 kg/m Vision Screening: Follows with optometry/ophthalmology Poor vision. Assessment/Plan Medicare annual wellness visit, subsequent (Z00.00) - Counseled on healthy diet and regular exercise - Fall avoidance information provided - Personalized prevention plan provided documented in this encounterUniversity Hospitals [facility] Center07-03-2025 Evaluation note* Diagnosis Onset Date Resolution Status Admit Date Congestive heart failure (CHF) acute December 05, 2024 2:57pm Essential hypertension acute 2024 2:57pm FDC current use of amiodarone acute December 05, 2024 2 :57pm Mitral valve insufficiency acute December 05, 2024 2:57pm Paroxysmal atrial fibrillation acute December 05, 2024 2:57pm Pleural effusion acute December 2:57pm HLD (hyperlipidemia) inactive December 05, 2024 2:57pm [facility] Work Phone: 1(250) 797-216807-03-2025 Evaluation note* Diagnosis Onset Date Resolution Status Admit Date Congestive heart failure (CHF) acute December 05, 2024 2:57pm Essential hypertension acute Ju ly 2024 2:57pm 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 acute December 05, 2024 2 :57pm Mitral valve insufficiency acute December 05, 2024 2:57pm Paroxysmal atrial fibrillation acute December 05, 2024 2:57pm Pleural effusion acute December 2:57pm HLD (hyperlipidemia) inactive December 05, 2024 2:57pm Chronic anticoagulation acute A ugust 2024 4:50pm History of atrial fibrillation acute January 22, 2025 4:50pm Hypoxia acute January 22, 2 025 4:50pm Viral syndrome acute January 4:50pm Vomiting acute January 22, 2 025 4:50pm Acute exacerbation of chroni c obstructive pulmonary disease chronic Au 2024 4:50pm [facility] Work Phone: 1(392) 263-892607-03-2025 Evaluation note* Diagnosis Onset Date Resolution Status Admit Date Congestive heart failure (CHF) acute December 05, 2024 2:57pm Essential hypertension acute Ju ly 2024 2:57pm FDC current use of amiodarone acute December 05, 2024 2 :57pm Mitral valve insufficiency acute December 05, 2024 2:57pm Paroxysmal atrial fibrillation acute December 05, 2024 2:57pm Pleural effusion acute December 2:57pm HLD (hyperlipidemia) inactive December 05, 2024 2:57pm Chronic anticoagulation acute A ugust 2024 4:50pm History of atrial fibrillation acute January 22, 2025 4:50pm Hypoxia acute January 22, 2 025 4:50pm Viral syndrome acute January 4:50pm Vomiting acute January 22, 2 025 4:50pm Acute exacerbation of chroni c obstructive pulmonary disease chronic Au petr 2024 4:50pm CHF exacerbation chronic January 042024 4:50pm [facility] Work Phone: 1(172) 191-932207-03-2025 Evaluation note* Diagnosis Onset Date Resolution Status Admit Date Congestive heart failure (CHF) acute December 05, 2024 2:57pm Essential hypertension acute Ju 2024 2:57pm 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 acute December 05, 2024 2 :57pm Mitral valve insufficiency acute December 05, 2024 2:57pm Paroxysmal atrial fibrillation acute December 05, 2024 2:57pm Pleural effusion acute December 2:57pm HLD (hyperlipidemia) inactive December 05, 2024 2:57pm Viral syndrome resolved January 4:50pm Vomiting resolved January 22, 2 025 4:50pm Acute exacerbation of chroni c obstructive pulmonary disease inactive Au 2024 4:50pm CHF exacerbation inactive January 042024 4:50pm Chronic anticoagulation inactive A ugust 2024 4:50pm History of atrial fibrillation inact aj January 22, 2025 4:50pm Hypoxia inactive January 22 025 4:50pm Anticoagulant long-term use acute March 04, 2025 12:58pm Congestive heart failure (CHF) acute March 04, 2025 12:58pm Essential hypertension acute Se pt2024 12:58pm FDC current use of amiodarone acute March 04, 2025 12:58pm Paroxysmal atrial fibrillation acute March 04, 2025 12:58pm [facility] [employer] Work Phone: 1(812) 100-621606-26-2025 History of Present illness Narrative* Mimi Encinas APRN.CNP - 11/28/2024 3:26 PM EDT Agree with [facility] recommendation * Yanely Posadas RN - 11/28/2024 2:21 PM EDT patient had inr completed at [facility] patients inr is 2.5 (patients inr range [...] 1 month (01/02/25) for follow up INR. documented in this encounterUniversity [facility]als [facility]06-16-2025 Telephone encounter Note * Telephone Encounter - Usman Dunn RN - 11/18/2024 4:42 PM EDT Pt checking on reply and given provider's message below with verbalized understanding. Pt will let Dr. Flores know. [facility]06-16-2025 Miscellaneous Notes* Telephone Encounter - Usman Dunn RN - 11/18/2024 4:42 PM EDT Pt checking on reply and given provider's message below with verbalized understanding. Pt will let Dr. Flores know. * Telephone Encounter - Christopher Bonilla MD - 11/18/2024 4:30 PM EDT Ok to do * Telephone Encounter - Nay Cottrell RN - 11/18/2024 2:22 PM EDT Patient calls to let provider know that Dr. Flores is recommending she have an upper endoscopy donewith possible biopsy and is recommending the Coumadin be held for 4 days prior to the procedure. Patient was instructed to contact PCP and ask if that would be ok. Patient requests call back at [phone] with provider response. Nay Cottrell RN documented in this encounterUniversity Hospitals Cleveland [facility] Center06-16-2025 Telephone encounter Note * Telephone Encounter - Christopher Bonilla MD - 11/18/2024 4:30 PM EDT Ok to do [facility]06-16-2025 Telephone encounter Note* Telephone Encounter - Nay Cottrell RN - 11/18/2024 2:22 PM EDT Patient calls to let provider know that Dr. Flores is recommending she have an upper endoscopy donewith possible biopsy and is recommending the Coumadin be held for 4 days prior to the procedure. Patient was instructed to contact PCP and ask if that would be ok. Patient requests call back at [phone] with provider response. Nay Cottrell RN [facility]05-29-2025 History of Present illness Narrative* Mimi Encinas APRN.CNP - 10/31/2024 3:47 PM EDT Agree with anticoag recommendation * Yanely Posadas RN - 10/31/2024 3:08 PM EDT patient had inr completed at [facility] patients inr is 2.5 (patients inr range [...] 4 weeks (11/28/24) for follow up INR. documented in this encounterUniversity Hospitals [facility]05-01-2025 History of Present illness Narrative* Christopher Bonilla MD - 10/03/2024 2:55 PM EDT agree * Yanely Posadas RN - 10/03/2024 2:53 PM EDT patient had inr completed at [facility] patients inr is 2.3 (patients inr range [...] 4 weeks (10/31/24) for follow up INR. documented in this encounterUniversity Hospitals [facility] Center05-01-2025 Telephone encounter Note * Telephone Encounter - Yanely Posadas RN - 10/03/2024 2:54 PM EDT Prescription Refill Information The patient has been identified by name and date of : Yes Caregiver verified no other encounters exist for this prescription request: Yes Caregiver confirmed with patient/requestor that no other refills are due, in the near future, with this provider at this time: Yes The last office visit in the department: 10/03/24 Does the patient have a future office visit with this provider/department: Yes Requested Prescriptions Pending Prescriptions Disp Refills warfarin (COUMADIN) 2 mg tablet 30 tablet 5 Sig: take 2mg Mon, Wed and 3mg all other days or as directed pending lab results Yanely Posadas RN October 03, 2024 2:56 PM ' [facility]05-01-2025 Miscellaneous Notes* Telephone Encounter - Yanely Posadas RN - 10/03/2024 2:54 PM EDT Prescription Refill Information The patient has been identified by name and date of : Yes Caregiver verified no other encounters exist for this prescription request: Yes Caregiver confirmed with patient/requestor that no other refills are due, in the near future, with this provider at this time: Yes The last office visit in the department: 10/03/24 Does the patient have a future office visit with this provider/department: Yes Requested Prescriptions Pending Prescriptions Disp Refills warfarin (COUMADIN) 2 mg tablet 30 tablet 5 Sig: take 2mg Mon, Wed and 3mg all other days or as directed pending lab results Yanely Posadas RN October 03, 2024 2:56 PM ' documented in this encounterUniversity Hospitals [facility] Center04-15-2025 Telephone encounter Note * Telephone Encounter - Usman Dunn RN - 09/17/2024 1:26 PM EDT Pt reports pharmacy told her insurance will not cover her atorvastatin. Reports they covered it last time she had it filled. Reports pharmacy ran it through insurance several times, and it was denied. Pharmacy advised pt to call insurance. Pt states she hasn't called them yet, but will call and find out and let pcp know. [facility]04-15-2025 Miscellaneous Notes* Telephone Encounter - Usman Dunn RN - 09/17/2024 1:26 PM EDT Pt reports pharmacy told her insurance will not cover her atorvastatin. Reports they covered it last time she had it filled. Reports pharmacy ran it through insurance several times, and it was denied. Pharmacy advised pt to call insurance. Pt states she hasn't called them yet, but will call and find out and let pcp know. documented in this encounterUniversity Hospitals [facility] Center03-31-2025 History of Present illness Narrative* Christopher Bonilla MD - 09/02/2024 2:48 PM EDT agree * Yanely Posadas RN - 09/02/2024 2:46 PM EDT patient had inr completed at [facility] patients inr is 2.5 (patients inr range is 2.0-3.0) patient is currently taking 2mg Mon,Wed and 3mg all other days patients last dose change was on 03/05/24 due to a high level of 3.4 (dose at that time was 2mg Mon,and 3mg all other days) patient has had [...] 4 weeks (09/30/24) for follow up INR. documented in this encounterUniversity Hospitals [facility] Center02-24-2025 History of Present illness Narrative* Christopher Bonilla MD - 07/29/2024 2:22 PM EST agree * Yanely Posadas RN - 07/29/2024 2:10 PM EST patient had inr completed at [facility] patients inr is 2.7 (patients inr range is 2.0-3.0) patient is currently taking 2mg Mon,Wed and 3mg all other days patients last dose change was on 03/05/24 due to a high level of 3.4 (dose that time was 2mg Mon and3mg all other days) patient has had no [...] 4 weeks (08/26/24) for follow up INR. documented in this encounterUniversity Hospitals Cleveland [facility] Center02-17-2025 Telephone encounter Note * Telephone Encounter - Gillian John - 07/22/2024 4:39 PM EST Last apt 05-31-2024 Patient has been identified by name and date of : Yes Last office visit in this department: 05/31/2024 RX INSTRUCTIONS: Patient aware RX will be sent to pharmacy. No need to notify patient. Patient phones requesting refills as follows: Requested Prescriptions No prescriptions requested or ordered in this encounter Please review and advise. Gillian Schmitt [facility]02-17-2025 Miscellaneous Notes* Telephone Encounter - Gillian John - 07/22/2024 4:39 PM EST Last apt 05-31-2024 Patient has been identified by name and date of : Yes Last office visit in this department: 05/31/2024 RX INSTRUCTIONS: Patient aware RX will be sent to pharmacy. No need to notify patient. Patient phones requesting refills as follows: Requested Prescriptions No prescriptions requested or ordered in this encounter Please review and advise. Gillian Schmitt documented in this encounterUniversity Hospitals Cleveland [facility] Center02-12-2025 Telephone encounter Note * Telephone Encounter - Seema Garcia MA - 07/17/2024 4:14 PM EST Patient informed of lab results and verbalized understanding. Seema Garcia MA [facility]02-12-2025 Miscellaneous Notes* Telephone Encounter - Seema Garcia MA - 07/17/2024 4:14 PM EST Patient informed of lab results and verbalized understanding. Seema Garcia MA documented in this encounterUniversity Hospitals [facility] Center01-24-2025 History of Present illness Narrative* Christopher Bonilla MD - 06/28/2024 2:06 PM EST agree * Yanely Posadas RN - 06/28/2024 1:40 PM EST patient had inr completed at [facility] patients inr is 2.4 (patients inr range [...] 4 weeks (07/25/24) for follow up INR. documented in this encounterUniversity Hospitals [facility] Center01-16-2025 Telephone encounter Note * Telephone Encounter - Usman Dunn RN - 06/20/2024 12:34 PM EST Patient reports she [facility], but is having trouble finding a ride. Pt cancelled the appt and states she will just go to lab when she can find a ride, since thereis a standing order in the lab to check INR. [facility]01-16-2025 Miscellaneous Notes* Telephone Encounter - Usman Dunn RN - 06/20/2024 12:34 PM EST Patient reports she has appt scheduled with [facility] today, but is having trouble finding a ride. Pt cancelled the appt and states she will just go to lab when she can find a ride, since thereis a standing order in the lab to check INR. documented in this encounterUniversity Hospitals Cleveland [facility] Center01-13-2025 Telephone encounter Note * Telephone Encounter - Harley Ordaz LPN - 06/17/2024 2:52 PM EST Patient calling asking to have Gastro referral faxed to Dr Don Flores office at [phone]. Printedreferral, face sheet, office notes and faxed as requested. [facility]01-13-2025 Miscellaneous Notes* Telephone Encounter - Harley Ordaz LPN - 06/17/2024 2:52 PM EST Patient calling asking to have Gastro referral faxed to Dr Don Flores office at [phone]. Printedreferral, face sheet, office notes and faxed as requested. documented in this encounterUniversity Hospitals Cleveland Medical Center12-30-2024 Telephone encounter Note * Telephone Encounter - Debbie Long MA - 06/03/2024 12:22 PM EST Patient is willing to try medication. Please send to [facility]. She is aware will need to repeat labs in 6-8 weeks Debbie Long MA June 03, 2024 12:23 PM [facility]12-30-2024 Miscellaneous Notes* Telephone Encounter - Debbie Long MA - 06/03/2024 12:22 PM EST Patient is willing to try medication. Please send to [facility]. She is aware will need to repeat labs in 6-8 weeks Debbie Long MA June 03, 2024 12:23 PM * Telephone Encounter - Christopher Bonilla MD - 06/03/2024 11:57 AM EST Labs are stable, except her cholesterol is up. She had issues with crestor in the past, would she be willing to try a different one like lipitor? documented in this encounterUniversity Hospitals Cleveland Medical Center12-30-2024 Telephone encounter Note * Telephone Encounter - Christopher Bonilla MD - 06/03/2024 11:57 AM EST Labs are stable, except her cholesterol is up. She had issues with crestor in the past, would she be willing to try a different one like lipitor? [facility]12-27-[facility]24 History of Present illness Narrative* Christopher Bonilla MD - 05/31/2024 1:47 PM EST Patient presents with: 6 Month Exam HPI: Patient presents today for office visit for follow up. Back pain has been controlled pretty well. Did have a flare up recently but has seemed to calm downnow. Using the gabapentin that helps her. ANTICOAGULATION: [...] only when taking the lasix. Controlled. Doesn't wearcompression stockings often but does have them. Palpitations: No. Syncope: No. Headache: No. Dizziness: Rarely when standing too fast so she is careful Sees [facility]. GERD: Patient takes: omeprazole Heartburn [...] daily. Custom made WALKER ROLLATOR SEAT WITH 6" WHEELS - RED Daily use R26.81 Gait [...] rash. PAST MEDICAL HISTORY Diagnosis Date A-fib ([facility]) Class 1 congestive heart failure, unspecified failure chronicity, systolic (HCC) 11/21/2019 Dysphagia, unspecified(787.20) Esophageal reflux Esophagitis, unspecified Marfan's syndrome Moderate mitral regurgitation 06/18/2021 04/27/21 Echo at [facility]. Pleural effusion, right 05/05/2020 CXR 11/18/19 and [...] and recommended the following in detail. RSV Vaccine(dose 75+ series) Never done Advance Directive Discussion due on 06/05/2023 VITALS: BP 108/64 Pulse 91 Wt 55.8 kg (123 lb) SpO2 96% BMI 23.24 kg/m Last 4 Encounter Wt Readings: Date: [...] 241.0, ICD10: E04.1 - per surgery at [place]. Christopher Bonilla MD documented in this encounterUniversity Hospitals Cleveland Medical Center12-19-2024 History of Present illness Narrative* Mimi Encinas APRN.CNP - 05/23/2024 4:25 PM EST Agree with anticoag recommendations * Yanely Posadas RN - 05/23/2024 2:16 PM EST patient had inr completed at [facility] patients inr is 2.2 (patients inr range [...] 4 weeks (06/20/24) for follow up INR. documented in this encounterUniversity Hospitals [facility] Center12-11-2024 History of Present illness Narrative* Jolene Osuna RN - 05/15/2024 10:50 AM EST [facility] Telephonic Outreach Provider Action/FYI Contacted for: Routine [...] more often than normal? No Based on global climate change researcher, the following disposition is advised: No symptoms or symptoms present, not severe. Routed to: No Action Needed FAVIOLA Education Provided this Outreach: No Jolene Osuna RN May 15, 2024 10:57 AM documented in this encounterUniversity Hospitals Cleveland Medical Center11-21-2024 History of Present illness Narrative* Mimi Encinas APRN.CNP - 04/25/2024 3:10 PM EST Agree with anticoag recommendation * Yanely Posadas RN - 04/25/2024 2:14 PM EST patient had inr completed at [facility] patients inr is 2.4 (patients inr range [...] scheduled in 4 weeks (05/23/24) for follow u p INR. documented in this encounterUniversity Hospitals Cleveland [facility] Center11-21-2024 Telephone encounter Note * Telephone Encounter - Yanely Posadas RN - 04/25/2024 2:16 PM EST patients orders for coumadin clinic inr's has at this time. new order has been pended for approval if possible so that patient can continue to get inr's completed thru the coumadin clinic. coumadin clinic nurse only needs called if order can not be approved. [facility]11-21-2024 Miscellaneous Notes* Telephone Encounter - Yanely Posadas RN - 04/25/2024 2:16 PM EST patients orders for coumadin clinic inr's has at this time. new order has been pended for approval if possible so that patient can continue to get inr's completed thru the coumadin clinic. coumadin clinic nurse only needs called if order can not be approved. documented in this encounterUniversity Hospitals Cleveland [facility] Center11-20-2024 History of Present illness Narrative* Jolene Osuna RN - 04/24/2024 5:58 PM EST [facility] Telephonic Outreach Provider Action/FYI Contacted for: Routine Telephonic Outreach Contact made with patient: No, unable to leave message. Jolene Osuna RN April 24, 2024 5:59 PM documented in this encounterUniversity Hospitals Cleveland [facility] Center10-24-2024 History of Present illness Narrative* Mimi Encinas APRN.CNP - 03/28/2024 2:34 PM EDT Agree with anticoagulation recommendation * Yanely Posadas RN - 03/28/2024 2:25 PM EDT patient had inr completed at [facility] patients inr is 2.4 (patients inr range [...] scheduled in 4 weeks (04/25/24) for follow u p INR. documented in this encounterUniversity Hospitals Cleveland [facility] Center10-24-2024 Telephone encounter Note * Telephone Encounter - Yanely Posadas RN - 03/28/2024 2:27 PM EDT Prescription Refill Information The patient has been identified by name and date of : Yes Caregiver verified no other encounters exist for this prescription request: Yes Caregiver confirmed with patient/requestor that no other refills are due, in the near future, with this provider at this time: Yes The last office visit in the department: Does the patient have a future office visit with this provider/department: Yes Requested Prescriptions Pending Prescriptions Disp Refills warfarin (COUMADIN) 3 mg tablet 30 tablet 11 Simg Mon Wed and 3mg all other days or as directed Yanely Posadas RN March 28, 2024 2:28 PM [facility]10-24-2024 Miscellaneous Notes* Telephone Encounter - Yanely Posadas RN - 03/28/2024 2:27 PM EDT Prescription Refill Information The patient has been identified by name and date of : Yes Caregiver verified no other encounters exist for this prescription request: Yes Caregiver confirmed with patient/requestor that no other refills are due, in the near future, with this provider at this time: Yes The last office visit in the department: Does the patient have a future office visit with this provider/department: Yes Requested Prescriptions Pending Prescriptions Disp Refills warfarin (COUMADIN) 3 mg tablet 30 tablet 11 Simg Mon Wed and 3mg all other days or as directed Yanely Posadas RN March 28, 2024 2:28 PM documented in this encounterUniversity Hospitals Cleveland [facility] Center10-23-2024 History of Present illness Narrative* Jolene Osuna RN - 03/27/2024 6:44 PM EDT [facility] Telephonic Outreach Provider Action/FYI Contacted for: Routine Telephonic Outreach Contact made with patient: Yes Patient would like a call back at another time, she is making dinner. Jolene Osuna RN March 27, 2024 6:46 PM documented in this encounterUniversity Hospitals [facility] Center10-08-2024 History of Present illness Narrative* Mimi Encinas APRN.CNP - 03/12/2024 2:37 PM EDT Agree with bri recommendations * Yanely Posadas RN - 03/12/2024 2:25 PM EDT patient had inr completed at [facility] patients inr is 2.5 (patients inr range [...] scheduled in 2 weeks (03/26/24) for follow u p INR since this is the first normal reading since dose change documented in this encounterUniversity Hospitals [facility] Center10-01-2024 History of Present illness Narrative* Christopher Bonilla MD - 03/05/2024 3:07 PM EDT agree * Yanely Posadas RN - 03/05/2024 2:51 PM EDT patient had inr completed at [facility] patients inr is 3.4 (patients inr range is 2.0-3.0) patient is currently taking 2mg Mon and 3mg all other days patients last dose change was on 02/27/24 due to a low level of 1.9 (dose at that time was 2mg Mon,Wed and 3mg all other days) patient has had no changes in medication except for coumadin and no missed doses and no change in diet recommend: patient hold coumadin today and then Monday start dosing of 2mg Mon,Wed and 3mg all other days and recheck in 1 week patient has been scheduled for a 1 week follow up inr on 03/12/24 please review and advise on recommendation patient only needs called if provider does not agree with recommendation documented in this encounterUniversity Hospitals [facility] Center09-26-2024 History of Present illness Narrative* Jolene Osuna RN - 02/29/2024 1:20 PM EDT [facility] Telephonic Outreach Provider Action/FYI Ill with coughing, sneezing, general malaise, congestion Over the last 24hrs patient feels she is getting better. Feels she is now able to breath through nose OTC tylenol and cough drops Feel she is hydrating - drinking water and sprite. One occurrence of vomiting due to coughing on 02/26 Patient declines need to see PCP Patient declines need to speak with virtualist today. Discussed worrisome signs and symptoms and indications for f/up medical care and emergency medical care, including symptoms worsening, not improved, or new concerns. Contacted for: Routine Telephonic Outreach Contact made [...] more often than normal? No Based on global climate change researcher, the following disposition is advised: No symptoms or symptoms present, not severe. Routed to: No Action Needed FAVIOLA Education Provided this Outreach: No Jolene Osuna RN February 29, 2024 1:30 PM documented in this encounterUniversity Hospitals Cleveland [facility] Center09-24-2024 Telephone encounter Note * Telephone Encounter - Elisabeth Bettencourt MA - 02/27/2024 12:17 PM EDT Pt notified and voiced understanding. Tracker and med list updated. Elisabeth Bettencourt MA [facility]09-24-2024 Miscellaneous Notes* Telephone Encounter - Elisabeth Bettencourt MA - 02/27/2024 12:17 PM EDT Pt notified and voiced understanding. Tracker and med list updated. Elisabeth Bettencourt MA * Telephone Encounter - Christopher Bonilla MD - 02/27/2024 12:14 PM EDT 3 mg a day except 2 on M. Recheck one week * Telephone Encounter - Elisabeth Bettencourt MA - 02/27/2024 11:55 AM EDT Last INR: PT INR 1.9 02/26/2024 Current dose of coumadin is: 2 mg Mon/Mon, 3 mg all other days. Last date of dose change: 10/05/23. Previous INR (date and result): 01/18/24 INR: 2.2 Additional Clinical Information or narrative: no documented in this encounterUniversity Hospitals Cleveland Medical [facility] Telephone encounter Note * Telephone Encounter - Christopher Bonilla MD - 02/27/2024 12:14 PM EDT 3 mg a day except 2 on M. Recheck one week [facility]09-24-2024 Telephone encounter Note* Telephone Encounter - Elisabeth Bettencourt MA - 02/27/2024 11:55 AM EDT Last INR: PT INR 1.9 02/26/2024 Current dose of coumadin is: 2 mg Mon/Mon, 3 mg all other days. Last date of dose change: 10/05/23. Previous INR (date and result): 01/18/24 INR: 2.2 Additional Clinical Information or narrative: no [facility]09-13-2024 Telephone encounter Note* Telephone Encounter - Deana Coleman RN - 02/16/2024 1:11 PM EDT The patient has been identified by name and date of : Yes Caregiver verified no other encounters exist for this prescription request: Yes Caregiver confirmed with patient/requestor that no other refills are due, in the near future, with this provider at this time: Yes The last office visit in the department: 11/30/2023 Does the patient have a future office visit with this provider/department: Yes 05/31/2024 Requested Prescriptions Pending Prescriptions Disp Refills omeprazole (PRILOSEC) 40 mg capsule 90 capsule 3 Sig: Take 1 capsule by mouth once daily. Deana Coleman RN February 16, 2024 1:11 PM [facility]09-13-2024 Miscellaneous Notes* Telephone Encounter - Deana Coleman RN - 02/16/2024 1:11 PM EDT The patient has been identified by name and date of : Yes Caregiver verified no other encounters exist for this prescription request: Yes Caregiver confirmed with patient/requestor that no other refills are due, in the near future, with this provider at this time: Yes The last office visit in the department: 11/30/2023 Does the patient have a future office visit with this provider/department: Yes 05/31/2024 Requested Prescriptions Pending Prescriptions Disp Refills omeprazole (PRILOSEC) 40 mg capsule 90 capsule 3 Sig: Take 1 capsule by mouth once daily. Deana Coleman RN February 16, 2024 1:11 PM documented in this encounterUniversity [facility]als [facility]09-13-2024 History of Present illness Narrative* Jolene Osuna RN - 02/16/2024 9:06 AM EDT [facility] Telephonic Outreach Provider Action/FYI Contacted for: Routine Telephonic Outreach Contact made with patient: No, left message. Jolene Osuna RN February 16, 2024 9:06 AM documented in this encounterUniversity Hospitals [facility]08-30-2024 History of Present illness Narrative* Jolene Osuna RN - 02/02/2024 9:59 AM EDT [facility] Telephonic Outreach Provider Action/FYI Contacted for: Routine Telephonic Outreach Contact made with patient: No, left message. Jolene Osuna RN February 02, 2024 10:00 AM * Jolene Osuna RN - 01/31/2024 11:08 AM EDT [facility] Telephonic Outreach Provider Action/FYI Contacted for: Routine Telephonic Outreach Contact made with patient: No, left message. Jolene Osuna RN January 31, 2024 11:09 AM documented in this encounterUniversity Hospitals [facility]08-15-2024 History of Present illness Narrative* Mimi Encinas APRN.CNP - 01/18/2024 4:57 PM EDT Agree with anticoingrid's recommendation. Follow-up INR in 4 weeks. * Yanely Posadas, RN - 01/18/2024 3:00 PM EDT patient had inr completed at [facility] patients inr is 2.2 (patients inr range is 2.0-3.0) patient is currently taking 2mg Mon,Wed and 3mg all other days patients last dose change was on 10/05/23 due to a low level of 1.7 (dose at that time was 2mg Mon,Wed,Fri and 3mg all other days) patient has had no changes in medication and no missed doses and no change in diet Advised patient to continue on the same dose(s) and that they would only be contacted regarding dosage and follow up instructions after review with provider, if a change is needed. Written instructions given and patient verbalized understanding. Presently scheduled in 1 month (02/22/24) for follow up INR. documented in this encounterUniversity Hospitals [facility]08-12-2024 Telephone encounter Note * Telephone Encounter - [place] Cecy Schmitt - 01/15/2024 4:12 PM EDT Prescription Refill Information The patient has been identified by name and date of : Yes Caregiver verified no other encounters exist for this prescription request: Yes Caregiver confirmed with patient/requestor that no other refills are due, in the near future, with this provider at this time: Yes The last office visit in the department: 11/30/23 Does the patient have a future office visit with this provider/department: Yes 05/31/24 Requested Prescriptions Pending Prescriptions Disp Refills gabapentin (NEURONTIN) 100 mg capsule 180 capsule 1 Sig: Take 1 capsule by mouth two times a day for 180 days. Cecy Schmitt January 15, 2024 4:13 PM [facility]08-12-2024 Miscellaneous Notes* Telephone Encounter - [place] Cecy Schmitt - 01/15/2024 4:12 PM EDT Prescription Refill Information The patient has been identified by name and date of : Yes Caregiver verified no other encounters exist for this prescription request: Yes Caregiver confirmed with patient/requestor that no other refills are due, in the near future, with this provider at this time: Yes The last office visit in the department: 11/30/23 Does the patient have a future office visit with this provider/department: Yes 05/31/24 Requested Prescriptions Pending Prescriptions Disp Refills gabapentin (NEURONTIN) 100 mg capsule 180 capsule 1 Sig: Take 1 capsule by mouth two times a day for 180 days. Cecy Schmitt January 15, 2024 4:13 PM documented in this encounterUniversity Hospitals [facility]08-01-2024 History of Present illness Narrative* Jolene Osuna RN - 01/04/2024 11:16 AM EDT M Telephonic Outreach Provider Action/FYI Contacted for: [...] more often than normal? No Based on global climate change researcher, the following disposition is advised: No symptoms or symptoms present, not severe. Routed to: No Action Needed FAVIOLA Education Provided this Outreach: No Jolene Osuna RN January 04, 2024 11:18 AM documented in this encounterUniversity Hospitals [facility]07-18-2024 History of Present illness Narrative* Yanely Posadas RN - 12/21/2023 4:41 PM EDT see phone encounter * Yanely Posadas RN - 12/21/2023 1:57 PM EDT patient had inr completed at [facility] patients inr is 2.3 (patients inr range is 2.0-3.0) patient is currently taking 2mg Mon,Wed and 3mg all other days patients last dose change was on 10/05/23 due to a low level of 1.7 (dose at that time was 2mg Mon,Wed,Fri and 3mg all other days) patient has had no changes in medication and no missed doses and no change in diet Advised patient to continue on the same dose(s) and that they would only be contacted regarding dosage and follow up instructions after review with provider, if a change is needed. Written instructions given and patient verbalized understanding. Presently scheduled in 4 weeks (01/18/24) for follow up INR. documented in this encounterUniversity Hospitals [facility] Center07-18-2024 Telephone encounter Note * Telephone Encounter - Mimi Encinas APRN.CNP - 12/21/2023 2:01 PM EDT Agree with anticoag recommendations. Recheck in 4 weeks. [facility]07-18-2024 Miscellaneous Notes* Telephone Encounter - Mimi Encinas APRN.CNP - 12/21/2023 2:01 PM EDT Agree with anticoag recommendations. Recheck in 4 weeks. documented in this encounterUniversity Hospitals [facility] Center07-05-2024 History of Present illness Narrative* Teresa Mart RN - 12/08/2023 11:52 AM EDT [facility] Telephonic Outreach Provider Action/FYI I am doing good. I do not need anything. I get my medications from [facility] Contacted for: Routine Telephonic Outreach Contact made with patient: Yes Patient identified by name and date of . Discussed care with patient Are you experiencing any new or worsening symptoms you need to talk about today? No Disease Specific Do you check your blood pressure at home? No Do you have new or worsening shortness of breath with activity? No Based on global climate change researcher, the following disposition is advised: No symptoms or symptoms present, not severe. Routed to: No Action Needed FAVIOLA Education Provided this Outreach: No Teresa Mart RN December 08, 2023 11:55 AM documented in this encounterUniversity Hospitals [facility] Center07-03-2024 History of Present illness Narrative* Teresa Mart RN - 12/06/2023 3:16 PM EDT [facility] Telephonic Outreach Provider Action/FYI Contacted for: Routine Telephonic Outreach Contact made with patient: No, left message. Teresa Mart RN December 06, 2023 3:30 PM documented in this encounterUniversity Hospitals [facility] Center07-01-2024 Telephone encounter Note * Telephone Encounter - Sabrina Millan MSW - 12/04/2023 12:03 PM EDT Sw called and spoke with patient. Discussed patient reaching out to [facility] [employer],Service and Support [employer]. Discussed Medicaid and Waiver services and noted [employer] [place] S[place] dept would be good place to start to see about service plan for patient son in regards to home care assistance and terminal gauger planning. Patient notes that she has [facility] [employer] number. Patient notes that she will reach out and give them a call and see about patient son and how to best help him sign up for services. Patient reports that she is working right now with probate court in regards to applying for guardianship of son. Sw will also mail out [facility] Older Adult resource guide to patient home for community resource information. [facility]07-01-2024 Miscellaneous Notes* Telephone Encounter - Sabrina Millan MSW - 12/04/2023 12:03 PM EDT Sw called and spoke with patient. Discussed patient reaching out to [facility] [employer],Service and Support [employer] Dept. Discussed Medicaid and Waiver services and noted [employer] [place] dept would be good place to start to see about service plan for patient son in regards to home care assistance and terminal gauger planning. Patient notes that she has [facility] [employer] number. Patient notes that she will reach out and give them a call and see about patient son and how to best help him sign up for services. Patient reports that she is working right now with probate court in regards to applying for guardianship of son. Sw will also mail out [facility] resource guide to patient home for community resource information. * Telephone Encounter - Sabrina Millan MSW - 11/30/2023 3:44 PM EDT Sw placed call to patient to discuss below provider message regarding family planning options for son with disabilities in the event that patient is no longer able or around to take care of son. No answer and no vmail to leave message. Sw will be out of office tomorrow 12/01/23. Will try call again to patient 12/04/23. * Telephone Encounter - Debbie Long MA - 11/30/2023 2:57 PM EDT Consult bilingual social worker for resources to plan for mentally disabled son if something were to happen to her, per provider Gali Encinas APRN documented in this encounterUniversity Hospitals Cleveland [facility] Center06-28-2024 Telephone encounter Note * Telephone Encounter - Usman Dunn RN - 12/01/2023 10:19 AM EDT Patient returned call and given provider's message below with verbalized understanding. [facility]06-28-2024 Miscellaneous Notes* Telephone Encounter - Usman Dunn RN - 12/01/2023 10:19 AM EDT Patient returned call and given provider's message below with verbalized understanding. * Telephone Encounter - Debbie Long MA - 12/01/2023 10:13 AM EDT Left message for patient to return call. Debbie Long Ma * Telephone Encounter - Debbie Long MA - 12/01/2023 9:34 AM EDT ----- Message from Mimi Encinas APRN.SENIOR DATABASE ADMINISTRATOR sent at 12/01/2023 8:05 AM EDT ----- Diabetes is stable. Urine for microalbumin creatinine ratio notes no effect of diabetes on her kidneys. Kidney function is normal. Blood counts with possible early iron deficiency. Please consider either a multivitamin with iron or adding ferrous sulfate 325 mg daily. That is [id number]. documented in this encounterUniversity Hospitals [facility] Center06-28-2024 Telephone encounter Note * Telephone Encounter - Debbie Long MA - 12/01/2023 10:13 AM EDT Left message for patient to return call. Debbie Long Ma [facility]06-28-2024 Telephone encounter Note* Telephone Encounter - Debbie Long MA - 12/01/2023 9:34 AM EDT ----- Message from Mimi Encinas APRN.CNS sent at 12/01/2023 8:05 AM EDT ----- Diabetes is stable. Urine for microalbumin creatinine ratio notes no effect of diabetes on her kidneys. Kidney function is normal. Blood counts with possible early iron deficiency. Please consider either a multivitamin with iron or adding ferrous sulfate 325 mg daily. That is [id number]. [facility]06-27-2024 Telephone encounter Note* Telephone Encounter - Sabrina Millan MSW - 11/30/2023 3:44 PM EDT Sw placed call to patient to discuss below provider message regarding family planning options for son with disabilities in the event that patient is no longer able or around to take care of son. No answer and no vmail to leave message. Sw will be out of office tomorrow 12/01/23. Will try call again to patient 12/04/23. [facility]06-27-[facility] History of Present illness Narrative* Mimi Encinas APRN.CNS - 11/30/2023 3:08 PM EDT Please continue current dose and repeat INR in 4 weeks. * Yanely Posadas RN - 11/30/2023 2:41 PM EDT patient had inr completed at [facility] patients inr is 2.4 (patients inr range is 2.0-3.0) patient is currently taking 2mg Mon,Wed and 3mg all other days patients last dose change was on 10/05/23 due to a low level of 1.7 (dose at that time was 2mg Mon,Wed,Fri and 3mg all other days) patient has had no changes in medication and no missed doses and no change in diet Advised patient to continue on the same dose(s) and that they would only be contacted regarding dosage and follow up instructions after review with provider, if a change is needed. Written instructions given and patient verbalized understanding. Presently scheduled in 3 weeks (12/21/23 - due to the c c is closed at the 4 week joleen) for follow up INR. documented in this encounterUniversity Hospitals [facility] Center06-27-2024 Telephone encounter Note * Telephone Encounter - Debbie Long MA - 11/30/2023 2:57 PM EDT Consult bilingual social worker for resources to plan for mentally disabled son if something were to happen to her, per provider Gali Encinas APRN [facility]06-27-2024 Instructions* Patient Instructions* Mimi Encinas APRN.CNS - 11/30/2023 1:33 PM EDT 1) Consider melatonin 3 mg at bedtime and repeat again if needed through night upon awakening 2) Incentive spirometer- train on using 3) Consult bilingual social worker for resources to plan for mentally disabled son if something were to happen to her 4) Labs today (blood, urine, and anticoag) 5) Follow up in 6 months documented in this encounterUniversity Hospitals Cleveland Medical Center06-27-2024 History of Present illness Narrative* Mimi Encinas APRN.MICAH - 11/30/2023 1:29 PM EDT This is a 78 year old female who presents today with: Patient presents with: 6 Month Exam HISTORY OF PRESENT ILLNESS: Libra Ceja is a 78 year old female. Patient presents with: 6 Month Exam Sometimes has a hard time going to sleep at night. PAST MEDICAL HISTORY: PAST MEDICAL HISTORY Diagnosis Date A-fib ([facility]) Class 1 congestive heart failure, unspecified failure chronicity, systolic ([facility]) 11/21/2019 Dysphagia, unspecified(787.20) Esophageal reflux Esophagitis, unspecified Marfan's syndrome Moderate mitral regurgitation 06/18/2021 04/27/21 Echo at [facility]. Pleural effusion, right 05/05/2020 CXR 11/18/19 and [...] Crestor [Rosuvastatin Calcium], Ibuprofen, Prevnar 13 [Pneumoc 13-Chely Conj-Dip Cr(Pf)], and Latex MEDICATIONS Current Outpatient Medications Medication Sig metoprolol tartrate, short acting, (LOPRESSOR) 50 mg tablet Take 1 tablet by mouth two times a day. warfarin (COUMADIN) 3 mg tablet Take 1 tablet by mouth daily as directed. (Patient taking differently: Take 3 mg by mouth daily as directed. Take 2 mg Mon,Wed, and 3 mg all other days or as directed) warfarin (COUMADIN) 4 mg tablet 4 mg Mon,Wed,Fri and 2 mg all other days or as directed pending blood results (Patient taking differently: Take 2 mg Mon,Wed, and 3 mg all other days or as directed) albuterol HFA (PROVENTIL HFA, VENTOLIN HFA) 90 mcg/actuation inhaler Inhale 2 Puffs as instructed every 4 hours as needed for wheezing/shortness of breath. gabapentin (NEURONTIN) 100 mg capsule Take 1 capsule by mouth two times a day for 180 days. omeprazole (PRILOSEC) 40 mg capsule Take 1 capsule by mouth once daily. amiodarone (PACERONE) 200 mg tablet Take [...] Take 1 tablet by mouth once daily. methylPREDNISolone (MEDROL DOSE-PACK) 4 mg Dose-Pack Take medications as directed on packaging. Take with food. warfarin (COUMADIN) 3 mg tablet Take 1 tablet by mouth daily as directed. warfarin (COUMADIN) 4 mg tablet Take 1 tablet by mouth daily as directed. (Patient taking differently: Take 4 mg by mouth daily as directed. Take 2 mg Mon,Wed, and 3 mg all other days or as directed) Back Brace misc 1 Each once daily. Custom made WALKER ROLLATOR SEAT WITH 6" WHEELS - RED Daily use R26.81 Gait [...] Topics Alcohol use: No Drug use: No REVIEW OF SYSTEMS GENERAL: No weight loss, malaise or fevers/chills, tired when she doesn't get enough sleep HEENT: Negative for frequent or significant headaches, No changes in hearing or vision. NECK: Negative for lumps, goiter, pain and significant neck swelling RESPIRATORY: Occ. Morning cough, no hemoptysis, no wheezing, dyspnea or shortness of breath, some LOERA CARDIOVASCULAR: Negative for chest pain, occ. Slight leg swelling, orthopnea, or palpitations GI: No nausea, vomiting, or diarrhea/constipation. No hematochezia/melena. Occ heartburn or reflux symptoms. : No history of dysuria, frequency or incontinence MUSCULOSKELETAL: Negative for joint pain or swelling. Walks with a cane- occ. Right hip pain sometimes- relieved with Tylenol SKIN: Negative for lesions, rash, and itching ENDOCRINE: Negative for cold or heat intolerance, polyuria, polydipsia and goiter NEURO: No history of headaches, syncope, paralysis, seizures or tremors MOOD: Negative for depression, anxiety, or suicidal ideation. EXAM: BP 114/60 Pulse (!) 54 Resp 14 Wt 56.7 kg (125 lb) SpO2 92% BMI 23.62 kg/m PHYSICAL EXAM: Physical Exam Vitals reviewed. Constitutional: Appearance: Normal appearance. HENT: Head: Normocephalic. Cardiovascular: Rate and Rhythm: Normal rate and regular rhythm. Pulmonary: Comments: Very poor posture and inspiration- crackles that clear with cough Abdominal: Palpations: Abdomen is soft. Musculoskeletal: Comments: Kyphosis, walks with cane Skin: General: Skin is warm and dry. Neurological: Mental Status: She is alert. Psychiatric: Comments: Flat affect LABS: ASSESSMENT/PLAN: 1. Anxiety with depression - ICD9: 300.4, ICD10: F41.8 (primary diagnosis) Consult bilingual social worker for information for adult care - BEHAVIORAL HEALTH SCREENING 2. Paroxysmal atrial fibrillation (HCC) - ICD9: 427.31, ICD10: I48.0 Anticoagulated on warfarin 3. Hypertension, essential - ICD9: 401.9, ICD10: I10 - Controlled - Recommend home blood pressure monitoring, to bring results to next visit - Encouraged sodium restriction, DASH or Mediterranean diet - Recommend regular aerobic exercise 4. Pulmonary hypertension (HCC) - ICD9: 416.8, ICD10: I27.20 Ongoing 5. Other emphysema (HCC) - ICD9: 492.8, ICD10: J43.8 Ongoing - Get incentive spirometer and teach 6. Gastroesophageal reflux disease without esophagitis - ICD9: 530.81, ICD10: K21 Stable on omeprazole 7. Pulmonary emphysema, unspecified emphysema type (HCC) - ICD9: 492.8, ICD10: J43.9 Ongoing - DME SUPPLY OR ACCESSORY, NOS Discussed treatment plan and patient voices understanding. Patient's questions answered appropriately. Medications and potential side effects were discussed and patient voices understanding. Return to the office as scheduled or as needed for worsening/no improvement. Mimi Encinas APRN.CNS documented in this encounterUniversity Hospitals Cleveland Medical Center06-07-2024 History of Present illness Narrative* Jolene Osuna RN - 11/10/2023 10:56 AM EDT [facility] Telephonic Outreach Provider Action/FYI Patient has had a URI for the last week. She feels cough and sneezing has been the same over the last week. Denies need for PCP appointment. Reviewed upcoming appts with patient and she will see PCP on 11/14/2023. Discussed worrisome signs and symptoms and indications for f/up medical care and emergency medical care, including symptoms worsening, not improved, or new concerns. Contacted for: Routine Telephonic Outreach Contact made [...] more often than normal? No Based on global climate change researcher, the following disposition is advised: No symptoms or symptoms present, not severe. Routed to: No Action Needed FAVIOLA Education Provided this Outreach: No Jolene Osuna RN November 10, 2023 10:59 AM * Jolene Osuna RN - 11/09/2023 1:58 PM EDT [facility] Telephonic Outreach Provider Too/CAROLYN Contacted for: Routine Telephonic Outreach Contact made with patient: No, left message. Jolene Osuna RN November 09, 2023 1:58 PM documented in this encounterUniversity Hospitals Cleveland [facility] Center05-30-2024 History of Present illness Narrative* Mimi Encinas APRN.CNS - 11/02/2023 1:40 PM EDT Agree with antico recommendations including follow-up in 4 weeks * Yanely Posadas RN - 11/02/2023 1:21 PM EDT patient had inr completed at [facility] patients inr is 2.3 (patients inr range is 2.0-3.0) patient is currently taking 2mg Mon,Wed and 3mg all other days patients last dose change was on 10/05/23 due to a low level of 1.7 (dose at that time was 2mg Mon,Wed,Fri and 3mg all other days) patient has had no changes in medication and no missed doses and no change in diet Advised patient to continue on the same dose(s) and that they would only be contacted regarding dosage and follow up instructions after review with provider, if a change is needed. Written instructions given and patient verbalized understanding. Presently scheduled in 4 weeks (11/30/23) for follow up INR. documented in this encounterUniversity Hospitals Cleveland Medical Center05-22-2024 History of Present illness Narrative* Jolene Osuna RN - 10/25/2023 1:14 PM EDT [facility] Telephonic Outreach Provider Action/FYI Contacted for: Routine Telephonic Outreach Contact made with patient: No, left message. Jolene Osuna RN October 25, 2023 1:14 PM * Jolene Osuna RN - 10/23/2023 1:45 PM EDT [facility] Telephonic Outreach Provider Action/FYI Contacted for: Routine Telephonic Outreach Contact made with patient: No, left message. Jolene Osuna RN October 23, 2023 1:46 PM documented in this encounterUniversity Hospitals Cleveland [facility] Center05-16-2024 History of Present illness Narrative* Mimi Encinas APRN.CNS - 10/19/2023 2:00 PM EDT Agree with anticoagulation recommendations * Yanely Posadas RN - 10/19/2023 1:57 PM EDT patient had inr completed at [facility] patients inr is 2.9 (patients inr range is 2.0-3.0) patient is currently taking 2mg Mon,Wed and 3mg all other days patients last dose change was on 10/05/23 due to a low level of 1.7 (dose at that time was 2mg mon,Wed,Fri and 3mg all other days) patient has had no changes in medication and no missed doses and no change in diet Advised patient to continue on the same dose(s) and that they would only be contacted regarding dosage and follow up instructions after review with provider, if a change is needed. Written instructions given and patient verbalized understanding. Presently scheduled in 2 weeks (11/02/23) for follow up INR since this is the first normal reading since dose change documented in this encounterUniversity Hospitals Cleveland [facility] Center05-02-2024 History of Present illness Narrative* Yanely Posadas RN - 10/05/2023 3:58 PM EDT PATIENT NOTIFIED OF INFORMATION * Mimi Encinas APRN.CNS - 10/05/2023 2:31 PM EDT Agree with anticoagulation clinic's recommendation * Yanely Posadas RN - 10/05/2023 1:37 PM EDT patient had inr completed at [facility] patients inr is 1.7 (patients inr range is 2.0-3.0) patient is currently taking 2mg Mon,Wed,Fri and 3mg all other days patients last dose change was on 09/21/23 due to a low level of 1.5 (dose at that time was 3mg Tues,Thurs,Sat and 2mg all other days) patient has had no changes in medication except for coumadin and no missed doses and no change in diet recommend: patient to change coumadin to 2mg Mon,Wed and 3mg all other days and recheck in 2 weeks patient has been scheduled for a 2 week follow up inr on 10/19/23 please review and advise on recommendation documented in this encounterUniversity Hospitals Cleveland Medical Center04-23-2024 History of Present illness Narrative* Jolene Osuna RN - 09/26/2023 11:23 AM EDT [facility] Telephonic Outreach Provider Too/CAROLYN LEDBETTER at [facility] tomorrow and her son will take her. Contacted for: Routine Telephonic Outreach Contact made [...] more often than normal? No Based on global climate change researcher, the following disposition is advised: No symptoms or symptoms present, not severe. Routed to: No Action Needed FAVIOLA Education Provided this Outreach: No Jolene Osuna RN September 26, 2023 11:26 AM documented in this encounterUniversity Hospitals Cleveland Medical Center04-18-2024 History of Present illness Narrative* Yanely Posadas RN - 2023 4:38 PM EDT PATIENT NOTIFIED OF INFORMATION * Christopher Bonilla MD - 2023 3:06 PM EDT agree * Yanely Posadas RN - 2023 2:54 PM EDT patient had inr completed at [facility] patients inr is 1.5 (patients inr range is 2.0-3.0) patient is currently taking 3mg Tues,Thurs,Sat and 2mg all other days patients last dose change was on 09/07/23 due to a low level of 1.3 (dose at that time was 3mg Tues Thurs and 2mg all other days) patient has had no changes in medications except for coumadin and no missed dose and no change in diet recommend: patient change coumadin to 2mg Mon,Wed,Fri and 3mg all other days and recheck inr in 2 weeks patient has been scheduled for a 2 week follow up inr on 10/05/23 please review and advise on recommendation documented in this encounterUniversity Hospitals Cleveland Medical Center04-04-2024 History of Present illness Narrative* Yanely Posadas RN - 09/07/2023 4:22 PM EDT PATIENT NOTIFIED OF INFORMATION * Mimi Encinas APRN.CNS - 09/07/2023 1:51 PM EDT Due to a further decrease in INR with a 1.5 mg increase per week, I recommend increasing her warfarin to 3 mg Monday and Monday along with a recheck INR on September 17. Please have her not make any dietary changes and weight alcohol. * Yanely Posadas RN - 09/07/2023 12:47 PM EDT patient had inr completed at [facility] patients inr is 1.3 (patients inr range is 2.0-3.0) patient is currently taking 3mg Tues,Thurs and 2mg all other days patients last dose change was on 08/22/23 due to a low level of 1.5 (dose at that time was 3mg Thursand 2mg all other days) patient has had no changes in medication except for coumadin and no missed doses and no change in diet recommend: patient change coumadin dose to 3mg Tues,Thurs,Sat and 2mg all other days and recheck in2 weeks patient has been scheduled for a 2 week follow up inr on 09/21/23 please review and advise on recommendation documented in this encounterUniversity Hospitals Cleveland Medical Center03-26-2024 History of Present illness Narrative* Jolene Osuna RN - 08/29/2023 1:00 PM EDT [facility] Telephonic Outreach Provider Action/FYI Contacted for: [...] more often than normal? No Based on global climate change researcher, the following disposition is advised: No symptoms or symptoms present, not severe. Routed to: No Action Needed FAVIOLA Education Provided this Outreach: No Jolene Osuna RN August 29, 2023 1:02 PM documented in this encounterUniversity Hospitals Cleveland Medical Center03-19-2024 History of Present illness Narrative* Yanely Posadas RN - 08/22/2023 4:34 PM EDT PATIENT NOTIFIED OF INFORMATION * Christopher Bonilla MD - 08/22/2023 4:33 PM EDT agree * Yanely Posadas RN - 08/22/2023 4:02 PM EDT patient had inr completed at [facility] patients inr is 1.5 (patients inr range is 2.0-3.0) patient is currently taking 3mg Thurs and 2mg all other days patients last dose change was on 08/15/23 due to a high level of 3.4 (dose at that time was 3mg daily) patient has had no changes in medication except for coumadin and patient missed one dose and no change in diet recommend: patient change coumadin dose to 3mg Tues,Thurs and 2mg all other days and recheck in 2 week patient has been scheduled for a 2 week follow up inr on 09/05/23 please review and advise on recommendation documented in this encounterUniversity Hospitals Cleveland Medical Center03-12-2024 History of Present illness Narrative* Yanely Posadas RN - 08/15/2023 4:08 PM EDT PATIENT NOTIFIED OF INFORMATION * Christopher Bonilla MD - 08/15/2023 3:43 PM EDT agree * Yanely Posadas RN - 08/15/2023 3:32 PM EDT patient had inr completed at [facility] patients inr is 3.4 (patients inr range is 2.0-3.0) patient is currently taking 3mg daily patients last dose change was on 07/25/23 due to a high level of 3.2 (dose at that time was 4mg Mon,Wed,Fri and 2mg all other days) patient has had no changes in medication and no missed doses and no change in diet recommend: patient hold dose today and then resume coumadin tomorrow at 3mg Thurs and 2mg all otherdays and recheck in 1 week patient has been scheduled for a 1 week follow up inr on 08/22/23 please review and advise on recommendation documented in this encounterUniversity Hospitals Cleveland Medical Center02-29-2024 Miscellaneous Notes* Telephone Encounter - Mimi Encinas APRN.CNS - 08/03/2023 1:01 PM EST Metoprolol has been rewritten for 90-day prescription * Telephone Encounter - Concha Phipps - 08/03/2023 9:35 AM EST [facility] wants to know if rx can be rewritten for a 90 day supply. Rx was sent in Feb with refills, but it was only for a 45 day supply since patient takes 2 tabletsdaily. * Telephone Encounter - Concha Phipps - 08/03/2023 9:33 AM EST Patient has been identified by name and date of : Yes Requested Prescriptions Pending Prescriptions Disp Refills metoprolol tartrate, short acting, (LOPRESSOR) 50 mg tablet Sig: Take 1 tablet by mouth two times a day. RX INSTRUCTIONS: Pharmacy initiated this request. No need to notify patient. Concha Schmitt documented in this encounterUniversity Hospitals Cleveland Medical Center02-29-2024 History of Present illness Narrative* Mimi Encinas APRN.CNS - 08/03/2023 12:14 PM EST Agree with above. * Yanely Posadas RN - 08/01/2023 2:52 PM EST patient had inr completed at [facility] patients inr is 2.7 (patients inr range is 2.0-3.0) patient is currently taking 3mg daily patients last dose change was on 07/25/23 due to a high level of 3.2 (dose at that time was 4mg Mon,Wed,Fri [...] verbalized understanding. Presently scheduled in 2 weeks (08/15/23) for follow up INR since this is the first normal reading since dose change documented in this encounterUniversity Hospitals Cleveland Medical Center02-28-2024 History of Present illness Narrative* Jolene Osuna RN - 08/02/2023 11:13 AM EST [facility] Telephonic Outreach Provider Action/FYI Contacted for: Routine [...] more often than normal? No Based on global climate change researcher, the following disposition is advised: No symptoms or symptoms present, not severe. Routed to: No Action Needed FAVIOLA Education Provided this Outreach: No Jolene Osuna RN August 02, 2023 11:14 AM documented in this encounterUniversity Hospitals Cleveland Medical Center02-20-2024 History of Present illness Narrative* Yanely Posadas RN - 07/25/2023 3:53 PM EST PATIENT NOTIFIED OF INFORMATION * Christopher Bonilla MD - 07/25/2023 3:05 PM EST Agree. Rx sent * Yanely Posadas, PEYTON - 07/25/2023 2:47 PM EST patient had inr completed at [facility] patients inr is 3.2 (patients inr range is 2.0-3.0) patient is currently taking 4mg Mon,Wed,Fri and 2mg all other days patients last dose change was on 06/26/23 due to a low level of 1.9 (dose at that time was 4mg Mon,Fri and 2mg all other days) patient has had no changes in medication except for coumadin and no missed doses and no change in diet recommend: patient change coumadin dose to 3mg daily and recheck in 1 week patient has been scheduled for a 1 week follow up inr on on 08/01/23 please review and advise on recommendation - if recommendation is approved please ok the pended 3mgrx for patient documented in this encounterUniversity Hospitals Cleveland Medical Center02-20-2024 Miscellaneous Notes* Telephone Encounter - Mimi Encinas APRN.CNS - 07/25/2023 3:15 PM EST Anti-coag clinic addressed INR with patient already. Patient verbalized changes with me at appointment. documented in this encounterUniversity Hospitals Cleveland Medical Center02-20-2024 Instructions* Patient Instructions* Mimi Encinas APRN.CNS - 07/25/2023 3:07 PM EST 1) Appointment in November already scheduled with Dr. Bonilla 2) INR addressed today by coumadin clinic documented in this encounterUniversity Hospitals Cleveland Medical Center02-20-2024 History of Present illness Narrative* Mimi Encinas APRN.CNS - 07/25/2023 3:00 PM EST This is a 77 year old female who presents today with: Patient presents with: Recheck: 2 week follow up HISTORY OF PRESENT ILLNESS: Libra Ceja is a 77 year old female. Patient presents with: Recheck: 2 week follow up Feeling better. More energy. Not dizzy anymore. No chest pain or palpitations No SOB- only with climbing stairs, less cough No fever or chills No hematuria or dysuria PAST MEDICAL HISTORY: PAST MEDICAL HISTORY Diagnosis Date A-fib ([facility]) Class 1 congestive heart failure, unspecified failure chronicity, systolic ([facility]) 11/21/2019 Dysphagia, unspecified(787.20) Esophageal reflux Esophagitis, unspecified Marfan's syndrome Moderate mitral regurgitation 06/18/2021 04/27/21 Echo at [facility]. Pleural effusion, right 05/05/2020 CXR 11/18/19 and [...] Crestor [Rosuvastatin Calcium], Ibuprofen, Prevnar 13 [Pneumoc 13-Chely Conj-Dip Cr(Pf)], and Latex MEDICATIONS Current Outpatient Medications Medication Sig warfarin (COUMADIN) 4 mg tablet 4 mg Mon,Wed,Fri and 2 mg all other days or as directed pending blood results albuterol HFA (PROVENTIL HFA, VENTOLIN HFA) 90 mcg/actuation inhaler Inhale 2 Puffs as instructed every 4 hours as needed for wheezing/shortness of breath. gabapentin (NEURONTIN) 100 mg capsule Take 1 capsule by mouth two times a day for 180 days. warfarin (COUMADIN) 3 mg tablet Take 1 tablet by mouth daily as directed. metoprolol tartrate, short acting, (LOPRESSOR) 50 mg tablet Take 1 tablet by mouth twice daily. warfarin (COUMADIN) 4 mg tablet Take 1 tablet by mouth daily as directed. omeprazole (PRILOSEC) 40 mg capsule Take 1 capsule by mouth once daily. amiodarone (PACERONE) 200 mg tablet Take 0.5 tablets by mouth once daily. dilTIAZem CD (CARDIZEM CD, CARTIA XT) 240 mg 24 hr capsule Take 240 mg by mouth once daily. furosemide (LASIX) 40 mg tablet Take 1 tablet by mouth twice daily. WALKER ROLLATOR SEAT WITH 6" WHEELS - RED Daily use R26.81 Gait instability (primary encounter diagnosis) potassium chloride 20 mEq TbER Take 1 tablet by mouth twice daily. 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 MULTIVITAMIN ORAL Take 1 tablet by mouth once daily. methylPREDNISolone (MEDROL DOSE-PACK) 4 mg Dose-Pack Take medications as directed on packaging. Take with food. Back Brace misc 1 Each once daily. Custom made No current facility-administered medications for this visit. [...] use: No Drug use: No EXAM: BP 110/64 Pulse (!) 57 Resp 16 Wt 56.7 kg (125 lb) SpO2 93% BMI 23.62 kg/m PHYSICAL EXAM: General Appearance: Well appearing, alert, in no acute distress, well-hydrated, well nourished.. Lungs: Lungs clear to auscultation. No wheezing, rhonchi, rales.. Heart: RRR without murmur, gallop, or rubs. No ectopy. Musculoskeletal: No joint swelling, deformity, or tenderness. ASSESSMENT/PLAN: 1. Chronic obstructive pulmonary disease with acute lower respiratory infection (HCC) - ICD9: 496, 519.8, ICD10: J44.0 (primary diagnosis) - Much improved. Stable. No change needed. 2. Paroxysmal atrial fibrillation (HCC) - ICD9: 427.31, ICD10: I48.0 Anticoagulated adequately. - Had INR done today. Understands instructions for adjustment. - Seeing cardiology in September. Follow up in November for routine appointment. Discussed treatment plan and patient voices understanding. Patient's questions answered appropriately. Medications and potential side effects were discussed and patient voices understanding. Return to the office as scheduled or as needed for worsening/no improvement. Mimi Encinas APRN.CNS The patient indicates understanding of these issues and agrees with the plan. documented in this encounterUniversity Hospitals Cleveland Medical Center02-05-2024 Instructions* Patient Instructions* Mimi Encinas APRN.CNS - 07/10/2023 3:39 PM EST 1) make appt. With cardiology\\ 2) take all of doxycycline 100mg 2 x day for 10 days (hold calcium while on this) 3) Steroid taper 4) INR when finished with doxycycline 5) follow up in 2 weeks documented in this encounterUniversity Hospitals Cleveland Medical Center02-05-2024 History of Present illness Narrative* Mimi Encinas APRN.CNS - 07/10/2023 3:00 PM EST This is a 77 year old female who presents today with: Patient presents with: Cough: Productive cough for over a month HISTORY OF PRESENT ILLNESS: Libra Ceja is a 77 year old female. Patient presents with: Cough: Productive cough for over a month PULM: Worsening shortness of breath: Sometimes walking up and down stairs, first lying down at ight. Cough: productive white, thick sputum. Wheezing: No. Smoking: No. Compliant with medications: No. Using rescue inhaler 0 times per week. Ran out. PAST MEDICAL HISTORY: PAST MEDICAL HISTORY Diagnosis Date A-fib ([facility]) Class 1 congestive heart failure, unspecified failure chronicity, systolic ([facility]) 11/21/2019 Dysphagia, unspecified(787.20) Esophageal reflux Esophagitis, unspecified Marfan's syndrome Moderate mitral regurgitation 06/18/2021 04/27/21 Echo at [facility]. Pleural effusion, right 05/05/2020 CXR 11/18/19 and [...] Crestor [Rosuvastatin Calcium], Ibuprofen, Prevnar 13 [Pneumoc 13-Chely Conj-Dip Cr(Pf)], and Latex MEDICATIONS Current Outpatient Medications Medication Sig warfarin (COUMADIN) 4 mg tablet 4 mg Mon,Wed,Mon and 2 mg all other days or as directed pending blood results gabapentin (NEURONTIN) 100 mg capsule Take 1 capsule by mouth two times a day for 180 days. metoprolol tartrate, short acting, (LOPRESSOR) 50 mg tablet Take 1 tablet by mouth twice daily. omeprazole (PRILOSEC) 40 mg capsule Take 1 capsule by mouth once daily. amiodarone (PACERONE) 200 mg tablet Take [...] hours as needed for wheezing/shortness of breath.) CALCIUM CARBONATE (CALCIUM 600 ORAL) Take 1 tablet by mouth once daily. MULTIVITAMIN ORAL Take 1 tablet by mouth once daily. warfarin (COUMADIN) 3 mg tablet Take 1 tablet by mouth daily as directed. warfarin (COUMADIN) 4 mg tablet Take 1 tablet by mouth daily as directed. Back Brace misc 1 Each once daily. Custom made WALKER ROLLATOR SEAT WITH 6" WHEELS - RED Daily use R26.81 Gait [...] Topics Alcohol use: No Drug use: No REVIEW OF SYSTEMS GENERAL: No weight loss, sometimes malaise, no fevers/chills HEENT: Negative for frequent or significant headaches, No changes in hearing or vision. NECK: Negative for lumps, goiter, pain and significant neck swelling RESPIRATORY: + once in awhile white sputum cough, hemoptysis, wheezing, some dyspnea or shortness of breath with exertion CARDIOVASCULAR: Negative for chest pain, leg swelling, sometimes orthopnea, or palpitations GI: No nausea, vomiting, or diarrhea/constipation. Sometimes heartburn or reflux symptoms. : No history of dysuria, frequency or incontinence MUSCULOSKELETAL: Negative for joint pain or swelling. SKIN: Negative for lesions, rash, and itching EXAM: BP 110/68 Pulse 113 Temp 36.7 C (98 F) Resp 24 Wt 58.1 kg (128 lb) SpO2 93% BMI 24.19 kg/m PHYSICAL EXAM: General Appearance: Well appearing, alert, in no acute distress, well-hydrated, well nourished.. Skin: Skin color, texture, turgor normal, no suspicious rashes or lesions, pale. Head: Normocephalic, no masses, lesions, tenderness or abnormalities. Lungs: CTA with poor respiratory effort, diminished left lung base, + egophony. Heart: irregular-irregular- no lower ext. edema. Abdomen: Normal abdominal exam, Abdomen soft, non-tender. Bowel sounds normal. No masses, organomegaly. Extremities: No deformities, edema, skin discoloration, clubbing or cyanosis. Good capillary refill. . LABS: Just had INR done before coming to appt. ASSESSMENT/PLAN: 1. Pulmonary emphysema, unspecified emphysema type (HCC) - ICD9: 492.8, ICD10: J43.9 (primary diagnosis) - Acute exacerbation of COPD versus possible left lower lobe pneumonia - ALBUTEROL SULFATE HFA 90 MCG/ACTUATION AEROSOL INHALER - DOXYCYCLINE HYCLATE 100 MG TABLET, recheck INR when completing the doxycycline - METHYLPREDNISOLONE 4 MG TABLETS IN A DOSE PACK - Follow up in office in 2 weeks to make certain that this has resolved 2. Paroxysmal atrial fibrillation (HCC) - ICD9: 427.31, ICD10: I48.0 - Likely triggered by acute exacerbation of COPD, reconsult cardiology for further management - CONSULT TO CARDIOLOGY Discussed treatment plan and patient voices understanding. Patient's questions answered appropriately. Medications and potential side effects were discussed and patient voices understanding. Return to the office as scheduled or as needed for worsening/no improvement. The patient indicates understanding of these issues and agrees with the plan. documented in this encounterUniversity Hospitals Cleveland Medical Center02-05-2024 History of Present illness Narrative* Christopher Bonilla MD - 07/10/2023 2:47 PM EST agree * Yanely Posadas RN - 07/10/2023 2:15 PM EST patient had inr completed at [facility] patients inr is 2.5 (patients inr range is 2.0-3.0) patient is currently taking 4mg Mon,Wed,Fri and 2mg all other days patients last dose change was on 06/26/23 due to a low level of 1.9 (dose at that time was 4mg Mon,Fri and 2mg all other days) patient has [...] verbalized understanding. Presently scheduled in 2 weeks (07/25/23) for follow up INR since this is the first normal reading since dose change documented in this encounterUniversity Hospitals Cleveland Medical Center02-05-2024 Miscellaneous Notes* Telephone Encounter - Yanely Posadas RN - 07/10/2023 2:17 PM EST Patient has been identified by name and date of : Yes, Provider Kori Date 07/10/23 Time 218p Patient phones for refill(s): Requested Prescriptions Pending Prescriptions Disp Refills warfarin (COUMADIN) 4 mg tablet 90 tablet 3 Si mg Mon,Wed,Fri and 2 mg all other days or as directed pending blood results Date of last office visit in primary care: Visit date not found Date of next office visit in primary care: 07/25/2023 Please advise. Thank you. Yanely Posadas RN. documented in this encounterUniversity Hospitals Cleveland Medical Center12-21-2023 History of Present illness Narrative* Jolene Osuna RN - 05/25/2023 11:47 AM EST [facility] Telephonic Outreach Provider Too/CHILANGOI Patient's jazmine and patient is tyring to navigate emotional and financial situation.Patient declines need for or SW at this [...] more often than normal? No Based on global climate change researcher, the following disposition is advised: No symptoms or symptoms present, not severe. Routed to: No Action Needed FAVIOLA Education Provided this Outreach: No Jolene Osuna, RN May 25, 2023 11:51 AM documented in this encounterUniversity Hospitals Cleveland Medical Center12-08-2023 History of Present illness Narrative* Jason Gallegos DO - 05/12/2023 4:40 PM EST Agree with below Jason Gallegos DO * Yanely Posadas RN - 05/12/2023 1:43 PM EST patient had inr completed at [facility] patients inr is 2.3 (patients inr range [...] scheduled in 2 weeks (05/25/23) for follow u p INR. documented in this encounterUniversity Hospitals Cleveland Medical Center12-07-2023 Miscellaneous Notes* Telephone Encounter - Cadence Bustillo LPN - 05/11/2023 11:27 AM EST Patient notified. She will watch diet better to help with cholesterol. She isn't interested in another medication at this time. * Telephone Encounter - Christopher Bonilla MD - 05/11/2023 9:30 AM EST Let her know las are stable. Her [...] Total Cholesterol: 216 mg/dL documented in this encounterUniversity Hospitals Cleveland Medical Center12-06-2023 Miscellaneous Notes* Telephone Encounter - Heena Davidson - 05/10/2023 3:05 PM EST First call made to reschedule tomorrow's appointment with Jannet Evans @ 2:30 PM, [facility]. Heena Davidson May 10, 2023 3:06 PM documented in this encounterUniversity Hospitals Cleveland Medical Center12-06-2023 History of Present illness Narrative* Christopher Bonilla MD - 05/10/2023 1:29 PM EST Patient presents with: 6 Month Exam HPI: Patient presents today for office visit for follow up. Still with intermittent bloating in abdomen. Denies any abdominal pain. Refers to "gurgling" sound in belly even after she eats. Hx of GERD. Continues on Omeprazole 40 mg daily Occasional heartburn but not very often. Takes TUMS prn. Denies bloody or black stool Denies constipation, vomiting or diarrhea. Bowel movements are regular. Daily. Solid. Appetite is good. Had egd in February by Dr. Evans. Had extensive mata's. He recommended she follow with a steel tier. She has not done that. Continues on [...] happens. Feels like she could fall over. Episodesonly last a few seconds. Happens rarely. No [...] mouth twice daily. WALKER ROLLATOR SEAT WITH 6" WHEELS - RED Daily use R26.81 Gait [...] rash. PAST MEDICAL HISTORY Diagnosis Date A-fib ([facility]) Class 1 congestive heart failure, unspecified failure chronicity, systolic ([facility]) 11/21/2019 Dysphagia, unspecified(787.20) Esophageal reflux Esophagitis, unspecified Marfan's syndrome Moderate mitral regurgitation 06/18/2021 04/27/21 Echo at [facility]. Pleural effusion, right 05/05/2020 CXR 11/18/19 and [...] Standing) Pulse 70 Ht 154.9 cm (5' 1") Wt 56.3 kg (124 lb 3.2 oz) [...] - had extensive mata's and surgery at [facility] recommended she obtain follow up with gi. - CONSULT TO GASTROENTEROLOGY - CBC + DIFF - IRON + TIBC 12. Rheumatoid arthritis, involving unspecified site, unspecified whether rheumatoid factor present(HCC) - ICD9: 714.0, ICD10: M06.9 - currently denies. 13. Prediabetes - ICD9: 790.29, ICD10: R73.0 - HGB A1C 14. Lung nodule Last ct showed several pulmonary nodules 4 mm in size. Some are old. May consider follow up ct at next ov. Christopher Bonilla MD RTO in six months. documented in this encounterUniversity Hospitals Cleveland Medical Center12-01-2023 Miscellaneous Notes* Telephone Encounter - Jennifer Kimball Ma - 05/05/2023 2:15 PM EST Call to pt and notified her of message below from Provider. Pt asking to setup appt next week with CC Nurse. Appt made on 05/12 at 1:00 pm. Tracker updated. Jennifer Kimball Ma * Telephone Encounter - Christopher Bonilla MD - 05/05/2023 2:09 PM EST 4 mg on Monday. 2 mg a day rest of the week. Recheck one week. * Telephone Encounter - Rachelle Villa Ma - 05/05/2023 1:55 PM EST Last INR: PT INR 1.9 05/05/2023 Current dose of coumadin is: 2 mg daily. Last date of dose change: 05/03. Previous INR (date and result): 2.8 05/02 Rachelle Villa Ma documented in this encounterUniversity Hospitals Cleveland Medical Center11-29-2023 Miscellaneous Notes* Telephone Encounter - Cadence Bustillo LPN - 05/03/2023 10:15 AM EST Patient notified and verbalizes understanding. Tracker updated. * Telephone Encounter - Christopher Bonilla MD - 05/03/2023 10:10 AM EST 2 mg a day. Recheck monday * Telephone Encounter - Cadence Bustillo LPN - 05/03/2023 9:56 AM EST Last INR: PT INR 2.8 05/02/2023 Current dose of coumadin is: patient got the Vit K on Monday evening and took the dose. Held her dose on Monday and Monday. Last date of dose change: 05/01/23 6.6 Previous INR (date and result): 6.6 Additional Clinical Information or narrative: no documented in this encounterUniversity Hospitals Cleveland Medical Center11-27-2023 Miscellaneous Notes* Telephone Encounter - Cadence Bustillo LPN - 05/01/2023 5:52 PM EST [facility] will get for patient this evening please file. Libra is notified and will go get it tonight. * Telephone Encounter - Airam Ayon RN - 05/01/2023 5:41 PM EST Patient calling back to say [facility] called local pharmacies for her and there is no Vitamin K in stock in the [place] area. Airam Ayon RN * Telephone Encounter - Christopher Bonilla MD - 05/01/2023 5:30 PM EST agree * Telephone Encounter - Airam Ayon RN - 05/01/2023 5:11 PM EST Patient calling to say [facility] tells her they do not have any Vitamin K in stock. They have to order it to have it available tomorrow. She is going to contact [facility] and [facility] to see if either pharmacy has the medication in stock tonight. Airam Ayon RN documented in this encounterUniversity Hospitals Cleveland Medical Center11-27-2023 Miscellaneous Notes* Telephone Encounter - Cadence Bustillo LPN - 05/01/2023 2:59 PM EST Patient notified and verbalizes understanding. Did confirm that she was taking the 4mg on / and 2mg all other days. * Telephone Encounter - Christopher Bonilla MD - 05/01/2023 2:36 PM EST INR is elevated at 6.6. call if any bleeding issues. Hold coumadin. Vit k sent in to take today. Recheck inr in am. documented in this encounterUniversity Hospitals Cleveland Medical Center11-07-2023 History of Present illness Narrative* Jolene Osuna RN - 04/11/2023 5:23 PM EST [facility] Telephonic Outreach Provider Action/FYI Contacted for: Routine [...] more often than normal? No Based on global climate change researcher, the following disposition is advised: No symptoms or symptoms present, not severe. Routed to: No Action Needed FAVIOLA Education Provided this Outreach: No Jolene Osuna RN April 11, 2023 5:25 PM documented in this encounterUniversity Hospitals Cleveland Medical Center10-26-2023 History of Present illness Narrative* Christopher Bonilla MD - 03/30/2023 4:35 PM EDT agree * Yanely Posadas RN - 03/30/2023 1:33 PM EDT patient had inr completed at [facility] patients inr is 2.2 (patients inr ranges [...] scheduled in 4 weeks (04/26/23) for follow u p INR. documented in this encounterUniversity Hospitals Cleveland Medical Center10-26-2023 Miscellaneous Notes* Telephone Encounter - Yanely Posadas RN - 03/30/2023 1:42 PM EDT patients orders for coumadin clinic inr's has at this time. new order has been pended for approval if possible so that patient can continue to get inr's completed thru the coumadin clinic. coumadin clinic nurse only needs called if order can not be approved. documented in this encounterUniversity Hospitals Cleveland Medical Center10-11-2023 History of Present illness Narrative* Jolene Osuna RN - 03/15/2023 9:10 AM EDT [facility] Telephonic Outreach Provider Action/FYI Contacted for: Routine [...] more often than normal? No Based on global climate change researcher, the following disposition is advised: No symptoms or symptoms present, not severe. Routed to: No Action Needed FAVIOLA Education Provided this Outreach: No Jolene Osuna, RN March 15, 2023 9:13 AM documented in this encounterUniversity Hospitals Cleveland Medical Center10-10-2023 History of Present illness Narrative* Christopher Bonilla MD - 03/14/2023 2:22 PM EDT agree * Yanely Posadas RN - 03/14/2023 2:17 PM EDT patient had inr completed at [facility] patients inr is 2.1 (patients inr range [...] for follow up INR. documented in this encounterUniversity Hospitals Cleveland Medical Center09-25-2023 Miscellaneous Notes* Telephone Encounter - Jennifer Kimball Ma - 02/27/2023 4:00 PM EDT Call to pt and notified her of message below from Provider. Pt verbalized understanding. Tracker updated. Jennifer Kimball Ma * Telephone Encounter - Christopher Bonilla MD - 02/27/2023 3:21 PM EDT Continue 2 mg a day. Recheck next Monday. * Telephone Encounter - Deisy Yepez MA - 02/27/2023 2:30 PM EDT Pt currently taking 4 mg on Saturdays, 2 mg all other days. INR Date Value Ref Range Status 02/27/2023 2.9 (H) 0.9 - 1.3 Final Comment: Vitamin K Antagonist (VKA) Therapeutic Range: INR 2 to 3 (Target INR of 2.5) Note: For patients treated with VKA drugs, such as warfarin, the [employer] 2012 Guideline recommends [...] Chest 2012, 141:7S-47S Les RA, et al. [facility] 2017, 70: 252-289 documented in this encounterUniversity Hospitals Cleveland Medical Center2023 Miscellaneous Notes* Telephone Encounter - Seema Garcia - 02/23/2023 2:49 PM EDT Patient informed and verbalized understanding. Seema Garcia * Telephone Encounter - Christopher Bonilla MD - 02/23/2023 2:24 PM EDT Ok. Back to 2 mg a day. Except 4 mg on Sat. Recheck Monday * Telephone Encounter - Jennifer Kimball Ma - 02/23/2023 2:19 PM EDT Last INR: PT INR 2.6 02/23/2023 Current dose of coumadin is: 6 mg on 02/21, 4 mg on 02/22 recheck 02/23/23. Last date of dose change: 02/21/23. Previous INR (date and result): 1.4 on 02/20/23 Additional Clinical Information or narrative: no Jennifer Kimball Ma documented in this encounterUniversity Hospitals Cleveland Medical Center09-20-2023 Miscellaneous Notes* Telephone Encounter - Briana Segura LPN - 02/22/2023 2:26 PM EDT Pt called and she is almost out of Warfarin and is in need of a short term sent to [facility] the [facility] to [facility]. Patient has been identified by name [...] you. Briana Segura LPN documented in this encounterUniversity Hospitals Cleveland Medical Center09-19-2023 Miscellaneous Notes* Telephone Encounter - Yolis Tran RN - 02/21/2023 9:11 AM EDT Pt called and is notified of providers message and instructions. Pt voices understanding. Yolis Tran RN * Telephone Encounter - Christopher Bonilla MD - 02/21/2023 8:49 AM EDT Still low. 6 mg today, then resume 4 mg a day. Recheck on * Telephone Encounter - Debbie Long Ma - 02/21/2023 8:44 AM EDT Last INR: PT INR 1.4 02/20/2023 Current dose of coumadin is: 4 mg daily. Previous INR (date and result): 1.2 02/17/23 Additional Clinical Information or narrative: no documented in this encounterUniversity Hospitals Cleveland Medical Center09-16-2023 Miscellaneous Notes* Telephone Encounter - Alma Delia Doyle RN - 02/18/2023 10:10 AM EDT Patient notified of message below with instructions repeated back to this nurse. Alma Delia Doyle RN * Telephone Encounter - Christopher Bonilla MD - 02/18/2023 10:06 AM EDT 4 mg a day. Recheck Monday * Telephone Encounter - Cadence Bustillo LPN - 02/18/2023 9:45 AM EDT Last INR: PT INR 1.2 02/17/2023 Current dose of coumadin is: 4mg tues/thurs and 2mg all other days. Additional Clinical Information or narrative: Procedure 02/14/23 told to hold coumadin 3 days prior and restart day after. documented in this encounterUniversity Hospitals Cleveland Medical Center09-15-2023 History of Present illness Narrative* Jolene Osuna RN - 02/17/2023 10:30 AM EDT [facility] Telephonic Outreach Provider Action/FYI Contacted for: Routine [...] more often than normal? No Based on global climate change researcher, the following disposition is advised: No symptoms or symptoms present, not severe. Routed to: No Action Needed FAVIOLA Education Provided this Outreach: No Jolene Osuna RN February 17, 2023 10:33 AM * Jolene Osuna RN - 02/14/2023 10:32 AM EDT [facility] Telephonic Outreach Provider Action/FYI Contacted for: Routine Telephonic Outreach Contact made with patient: No, left message. Jolene Osuna RN February 14, 2023 10:33 AM documented in this encounterUniversity Hospitals Cleveland Medical Center09-13-2023 Miscellaneous Notes* Telephone Encounter - Deana Coleman RN - 02/15/2023 4:17 PM EDT Patient called and notified of provider recommendations. Patient voiced understanding. Deana Coleman RN * Telephone Encounter - Christopher Bonilla MD - 02/15/2023 4:14 PM EDT If she was off for her egd. Resume at previous dose. Recheck inr on Monday * Telephone Encounter - Deana Coleman RN - 02/15/2023 4:06 PM EDT Patient calls and is asking what dosage of coumadin should she take today. Patient has been off of coumadin x 4 day due to having surgery. Patient states INR yesterday was 1.6. Patient's dosage is 4 mg Monday/; 2 mg all other days. Patient asking when should should get INR rechecked? Please review and advise, Deana Coleman RN documented in this encounterUniversity Hospitals Cleveland Medical Center09-12-2023 History and physical note Author Abimael Evans [facility] February 14, 2023 9:48am Note Date/Time February 14, 2023 9:48am [facility] Medical Records Department [address] [place] [address] History & Physical Exam 02/14/23 0947 MR#: [id number] Acct: [id number] Name: LIBRA CEJA Rep #:[id number] : 1945 77 From: Abimael Evans MD PCP: Dr. 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 Is patient in pain?: No Allergies pneumococcal vaccine [From Prevnar 13 (PF)] Allergy (Severe, Verified 01/10/23 13:45) RashLatex, Natural Rubber Allergy (Verified 01/10/23 13:45) Rashrosuvastatin calcium [From Crestor] Allergy (Verified 01/10/23 13:45) myalgiasibuprofen Adverse Reaction (Verified 01/10/23 13:45) Nausea Medications omeprazole 40 mg capsule,delayed release 40 mg PO DAILY GERD 10/19/14 [History Confirmed 01/10/23] calcium carbonate 600 mg calcium (1,500 mg) tablet 600 mg PO DAILY SUPPLEMENT 06/19/19 [History Confirmed 01/10/23] multivitamin 1 tab PO DAILY SUPPLEMENT 06/19/19 [History Confirmed 01/10/23] Handicap placard #1 ea 01/07/20 [Rx Confirmed 01/10/23] albuterol sulfate 90 mcg/actuation aerosol inhaler 2 puff inhalation Q4H PRN SOB01/09/20 [History Confirmed 01/10/23] amiodarone 200 mg tablet 100 mg (1/2 x 200 mg) PO DAILY #45 tabs 07/18/22 [Rx Confirmed 01/10/23] diltiazem HCl 240 mg capsule,extended release 24 hr 240 mg PO DAILY HEART #90 caps 07/18/22 [Rx Confirmed 01/10/23] furosemide 40 mg tablet 40 mg PO BID FLUID #180 tabs 07/18/22 [Rx Confirmed 01/10/23] potassium chloride 20 mEq tablet,extended release 20 meq PO BID #180 tabs 07/18/22 [Rx Confirmed 01/10/23] warfarin 4 mg tablet See Rx Instructions PO .COMPLEX AFIB #60 tabs 07/18/22 [Rx Confirmed 08/08/23] metoprolol tartrate 100 mg tablet 100 mg PO DAILY #90 tabs 07/25/22 [Rx Confirmed 01/10/23] ferrous fumarate 324 mg (106 mg iron) tablet 324 mg PO DAILY 11/29/22 [History Confirmed 01/10/23] PFS Medical History Abdominal pain Atrial fibrillation Bloating Chronic anticoagulation Chronic atrial fibrillation with RVR Congestive heart failure (CHF) COPD (chronic obstructive pulmonary disease) COPD (chronic obstructive pulmonary disease) Embolic infarction Essential hypertension Exudative pleural effusion GERD (gastroesophageal reflux disease) Goiter Hepatic congestion HLD (hyperlipidemia) HTN (hypertension) Hypertension Hypokalemia Hyponatremia Leukocytosis FDC current use of amiodarone Marfans syndrome Mixed hyperlipidemia Non-smoker PAF (paroxysmal atrial fibrillation) Paroxysmal atrial fibrillation Paroxysmal atrial fibrillation with RVR Pleural effusion PNA (pneumonia) Pulmonary hypertension Recurrent pleural effusion Renal cyst Renal infarction Rheumatoid arthritis Rheumatoid arthritis Splenic infarction Substance abuse Subtherapeutic international normalized ratio (INR) Surgical History History of eye surgery History of hysterectomy Family History Mother Diabetes Colon cancer Marfan syndromeSister Diabetes HypertensionBrother Marfan syndrome COPD (chronic obstructive pulmonary disease)Brother Marfan syndromeFather Gastric ulcer GERD (gastroesophageal reflux disease) Social History household members: spouse and children housing: house Smoking Status: Never smoker alcohol intake: never substance use type: does not use caffeine: Yes Type: coffee Number of servings: 4 HPI HPI HPI: 77-year-old female presents to discuss abdominal bloating. At my request she had a contrast upper GI with small bowel follow-through on December 26, 2022. Thereis questionable narrowing of the EG junction and a dilated esophagus. Stomach generally appears to be larger than the rest of the bowel. At this point I would suggest to esophagogastroduodenoscopy. My previous notes reflect the following 77-year-old female who I was asked to provide a consultation on on November 293because of chronic anemia. 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 She has gallstones and sludge. Rheumatoid arthritis pulmonary emphysema and Marfan syndrome. She was complaining of abdominal bloating. At the time of her office visit I did not feel that the risk-benefit ratio of endoscopy was in her favor. On December 09, 2022gabi had abdominal CT at my request. I have personally reviewed these images Jorge A have personally additionally contacted Dr. Jacobo radiologist and reviewed the images. There is felt to be a double bubble sign of the stomach. No obstruction to the small or large bowel. The rectum seems to have a fair amountof gas and with as well but the bowels not approximately distended. It is felt that possibly she has some gastric outlet issues or motility problems. Questionwhether we pursue an upper endoscopy or an upper GI contrast study or nuclear medicine gastric emptying study. She returns today at my request for further consultation and evaluation. Her primary complaint plate still remains that she feels bloated. She states that when she lies down at night that seems to improve December 26, 2022 PROCEDURE: Upper GI with Small Bowel Follow Through DATE OF EXAMINATION: Air-contrast upper GI series and small bowel follow-through examination.. INDICATION: Female, 77 years old. Abdominal bloating for 3 months. FLUOROSCOPY TIME (if supplied): (1:48) minutes/seconds. 30 images were obtained. 52.95 mGy TECHNIQUE: Radiographic and fluoroscopic images of the distal esophagus, stomach, and entire small intestine were obtained following the oral ingestion of barium. COMPARISON: None. FINDINGS: There is mild dilatation of the esophagus with decreased peristaltic activity. Mild narrowing at the gastroesophageal junction. The stomach and duodenum are unremarkable. Some ulceration. A single contrast small bowel follow through exam demonstrates the small bowel to have no evidence for stricture, ulceration or mass. The transit time is normal at 30 minutes. RAD/Upper GI/w Small Bowel IMPRESSION: 1. Decreased peristaltic activity of the esophagus. Mild narrowing at the gastroesophageal junction. The small bowel examination is unremarkable. Electronically Signed: Shashi Jacobo MD at 14:16 EDT , December 09, 2022 STUDY: CT Abdomen And Pelvis W/O Contrast Injection 12/10/2022 7:04 PM REASON FOR EXAM: Female, 77 years old. Abdominal pain bloating Individualized dose optimization techniques were used for this CT. COMPARISON: 01/26/22. TECHNIQUE: CT Abdomen And Pelvis W/O Contrast Injection Oral contrast was given FINDINGS: There are atherosclerotic calcifications of visualized coronary arteries. Minimal lower lobe infiltrates may suggest atelectasis or infiltrate. Stable hypodensities of the liver. Normal gallbladder and extrahepatic biliary system. Normal spleen. Normal pancreas. Normal bilateral adrenal glands. No acute findings of the right kidney. No acute findings of the left kidney. Normal visualized stomach. Normal small intestine. There are multiple colonic diverticula consistent with diverticulosis. There is non-visualization of the appendix. There are calcifications of the abdominal aorta. This is consistent for atherosclerotic disease. There is NO abdominal aortic aneurysm. Vascular workup can be obtained based on clinical correlation. Normal inferior vena cava. Subcentimeter mesenteric lymph nodes. Normal urinary bladder. There is absence of the uterus consistent with a prior hysterectomy. Normal abdominal wall. There are diffuse degenerative changes of the visualized lumbar spine. There is a compression deformity of the spine at level: T11 . These are age-indeterminate. MRI could further evaluate if of concern. Degenerative findings of the right hip. Osteitis pubis. CT/Abdomen/Pel W ORAL Cont Only IMPRESSION: (NOT LISTED IN ORDER OF SIGNIFICANCE) There is a compression deformity of the spine at level: T11 . These are age-indeterminate. MRI could further evaluate if of concern. Minimal lower lobe infiltrates may suggest atelectasis or infiltrate. There are multiple colonic diverticula consistent with diverticulosis. Other findings as above. Electronically Signed: Wilbert Butterfield MD at 19:09 EDT Reading Location ID and State: [address] [place] [address] , Service support , ROS General General: Yes fatigue; No weight change, appetite, colon cancer, breast cancer or weakness HEENT HEENT: Yes eye injury and eye surgery; No difficulty swallowing, swollen glands or hoarseness Endo Endocrine: Yes thyroid disease; No diabetes mellitus, thyroid cancer, Hair loss, heat intolerance or cold intolerance Skin Skin: No rash or changing moles Breast Breast: No left breast lump, right breast lump, nipple discharge, breast pain, abnormal mammogram, abnormal US or breast enlargement Musc Musculoskeletal: Yes arthritis and rheumatoid arthritis; No back problems, gout or joint pain Cardio Cardiovascular: Yes murmur, heart disease, atrial fibrillation and high blood pressure; No pacemaker, heart attack, heart stent, palpitations, shortness of breat with exertion or chest pain Psych Psychiatric: No depression, anxiety or hearing voices Resp Respiratory: Yes shortness of breath, No sleep apnea, Yes cough, Yes COPD, No asthma, No emphysema and No wheezing Gastro Gastrointestinal: No abdominal pain, No nausea or vomiting, No diarrhea, No constipation, No blood in stool, No acid reflux, No hemorrhoids, No ulcers, No gallbladder problem and No black,tarry stools Julio Hematologic: Yes blood thinners, No blood disorders, No bleeding, No anemia and No blood clots Neuro Neurologic: No system reviewed and no additional complaints, except as documented, No as per HPI, No abnormal gait, No abnormal hearing, No abnormal movements, No abnormal speech, No behavioral changes, No burning sensations, No confusion, No convulsions, No disequilibrium, No dizziness, No localized weakness, No frequent falls, No headache(s), No lack of coordination, No loss ofvision, No memory loss, No numbness, No other visual disturbances, No radicular pain, No restless legs, No sensory deficit, No syncope, No tingling, No tremor(s), No weakness and No other Assessment and Plan Assessment and Plan (1) Bloating: Status: Acute (2) Iron deficiency anemia: Status: Acute Qualifiers: Iron deficiency anemia type: unspecified iron deficiency Qualified Code(s): D50.9 - Iron deficiency anemia, unspecified Plan: I recommended the patient a esophagogastroduodenoscopy with possible biopsy. She describes what sounds like possible H. pylori in the past. Careful inspection of the distal esophagus as well as the gastric outlet pylorus will bepursued. The patient is aware that if stricturing is identified that I would anticipate trying to do some hydrostatic dilatation. We will have her hold her Coumadin for 3 days per preprocedure. She is aware of technique, benefit, risk,alternatives. We will schedule and proceed at her discretion. I appreciate theongoing opportunity of assisting with her surgical care. Copy: Dr. Christopher Evans M.D., F.A.C.S I have examined the patient and the H&P has been reviewed. There are no clinicalchanges since date of exam. Abimael Evans M.D., F.A.C.S. 02/14/23 0948 <Electronically signed by Abimael Evans MD> Cosigner Signature (if applicable): CC: Dr. Abimael Evans MD; Dr. Christopher Bonilla MD~ Signed [facility] Work Phone: [phone]) 197-677609-12-2023 Procedure [facility] 02-14-2023 Procedure [facility]09-08-2023 Miscellaneous Notes* Telephone Encounter - Cadence Bustillo LPN - 02/10/2023 2:04 PM EDT Spoke to patient and she verbalizes understanding. * Telephone Encounter - Usman Mehta PA-C - 02/10/2023 1:56 PM EDT Telephone on 02/10/23 PROTHROMBIN TIME/PT If surgeon wants checked I placed orders. Otherwise she can hold coumadin as directed- usually 5 days prior to surgery and resumed 1 day after surgery. Tobi Carmona PA-C * Telephone Encounter - Briana Segura LPN - 02/10/2023 1:09 PM EDT Pt called and she missed her INR apt with the coumadine clinic yesterday. Pt is scheduled for a colonoscopy with Dr. Abimael Evans [facility] the [facility] on 02-14-23. Pt has been instructed to not take her coumadin starting tonight thru 02-14-23. Pt asking what you would like her to do. Does she need to come into day to get an INR done at the lab? Please advise pt. Briana Segura LPN documented in this encounterUniversity Hospitals Cleveland Medical Center08-25-2023 History of Present illness Narrative* Christopher Bonilla MD - 01/27/2023 1:27 PM EDT agree * Yanely Posadas RN - 01/27/2023 1:18 PM EDT patient had inr completed at [facility] patients inr is 3.0 (patients inr range [...] reading since dose change documented in this encounterUniversity Hospitals Cleveland Medical Center08-25-2023 Miscellaneous Notes* Telephone Encounter - Usman Dunn RN - 01/27/2023 11:09 AM EDT Patient reports she was dx with shingles [...] Protocols used: Shingles (Zoster)-ADULT-AH documented in this [facility]08-21-2023 Miscellaneous Notes* Telephone Encounter - Jolie Mobley OCCA - 01/23/2023 11:04 AM EDT TC to patient who verbalized understanding and has no questions at this time. HEIDI Fajardo * Telephone Encounter - Christopher Bonilla MD - 01/23/2023 10:47 AM EDT Let her know her repeat labs are ok. documented in this encounterUniversity Hospitals Cleveland Medical Center08-18-2023 History of Present illness Narrative* Yanely Posdaas RN - 01/20/2023 4:22 PM EDT PATIENT NOTIFIED OF INFORMATION * Christopher Bonilla MD - 01/20/2023 2:23 PM EDT agree * Yanely Posadas RN - 01/20/2023 1:39 PM EDT patient had inr completed at [facility] patients inr is 3.3 (patients inr [...] 2mg all other days and recheck inr in1 week Patient has been scheduled for a 1 week follow up inr on 01/27/23 please review and advise on recommendation documented in this encounterUniversity Hospitals Cleveland Medical Center08-15-2023 Miscellaneous Notes* Telephone Encounter - Seema Garcia - 01/17/2023 4:19 PM EDT Scheduled with kori tomorrow. Seema Garcia * Telephone Encounter - Christopher Bonilla MD - 01/17/2023 3:48 PM EDT Hold med. Benadryl prn. Needs seen by one of us. * Telephone Encounter - Seema Garcia - 01/17/2023 3:43 PM EDT Spoke with patient. She denies any shortness [...] her eyes is slightly swollen. Seema Garcia * Telephone Encounter - Christopher Bonilla MD - 01/17/2023 3:22 PM EDT ? Is it the same rash. Shingles usually is not all over. Can we find out? If different rash, hold valacyclovir and benadryl prn. Any shortness of breath etc. Probably needs looked at. * Telephone Encounter - Gillian Holbrook LPN - 01/17/2023 2:41 PM EDT Pt was seen in EX 01/13/23 & [...] advise. Gillian Holbrook LPN documented in this encounterUniversity Hospitals Cleveland Medical Center08-14-2023 History of Present illness Narrative* Jolene Osuna RN - 01/16/2023 10:38 AM EDT CDM Telephonic Outreach Provider Action/FYI Breaking out on arm and upper back - [facility] diagnosed shingles. She is currently taking medication valacyclovir. She will continue to monitor and call if symptoms are same or worsening over thenext couple days. At this time she feels symptoms are the same. Patient had EGD at [facility] set up from 02/14. Contacted for: Routine [...] more often than normal? No Based on global climate change researcher, the following disposition is advised: No symptoms or symptoms present, not severe. Routed to: No Action Needed FAVIOLA Education Provided this Outreach: No Jolene Osuna RN January 16, 2023 10:53 AM documented in this encounterUniversity Hospitals Cleveland Medical Center08-12-2023 Miscellaneous Notes* Telephone Encounter - Heena Lynch MA - 01/14/2023 11:52 AM EDT Patient notified of results, verbalized understanding of instructions given. Heena Lynch MA * Telephone Encounter - Shannon Chiu APRN.CNP - 01/14/2023 11:15 AM EDT Please let patient know that culture did confirm shingles. Finish medication as discussed at visit.Follow up with Dr. Bonilla as needed. Shannon Chiu APRN.CNP documented in this encounterUniversity Hospitals Cleveland Medical Center08-11-2023 History of Present illness Narrative* Shanta Logan APRN.TRICIA - 01/13/2023 7:07 PM EDT Images from the original note were not [...] history is provided by the patient. No foreign language teacher was used. Rash Review of Systems Constitutional: Negative. Skin: Positive for rash. Objective Physical Exam Constitutional: Appearance: Normal appearance. Pulmonary: Effort: Pulmonary effort is normal. Skin: Neurological: Mental Status: She is alert. PAST MEDICAL HISTORY Diagnosis Date A-fib ([facility]) Class 1 congestive heart failure, unspecified failure chronicity, systolic ([facility]) 11/21/2019 Dysphagia, unspecified(787.20) Esophageal reflux Esophagitis, unspecified Marfan's syndrome Moderate mitral regurgitation 06/18/2021 04/27/21 Echo at [facility]. Pleural effusion, right 05/05/2020 CXR 11/18/19 and [...] Crestor [Rosuvastatin Calcium], Ibuprofen, Prevnar 13 [Pneumoc 13-Chely Conj-Dip Cr(Pf)], and Latex MEDICATIONS valACYclovir (VALTREX) [...] FORTICAL) 200 unit/actuation nasal spray Use 1 [place] in the nose once daily. Back Brace [...] mouth twice daily. WALKER ROLLATOR SEAT WITH 6" WHEELS - RED Daily use R26.81 Gait [...] be get worse not better. Shanta Logan APRN.EXTERNAL GRINDER TOOL documented in this encounterUniversity Hospitals Cleveland Medical Center08-11-2023 Miscellaneous Notes* Telephone Encounter - Sumi Vallejo RN - 01/13/2023 2:37 PM EDT Pt calling in and states she had [...] as possible. Pt agreeable. documented in this encounterUniversity Hospitals Cleveland Medical Center08-02-2023 Miscellaneous Notes* Telephone Encounter - Deana Coleman RN - 01/04/2023 9:43 AM EDT Pharmacist from [facility] calling and requesting refills on medication. Called and spoke with patient, patient switched to [facility] pharmacy and does need refills. Last Office Visit: 11/08/2022 Future Office Visit: 05/10/2023 Requested Prescriptions Pending Prescriptions Disp Refills omeprazole (PRILOSEC) 40 mg capsule 90 capsule 3 Sig: Take 1 capsule by mouth once daily. Date of Last Labs: 12/23/2022 documented in this encounterUniversity Hospitals Cleveland Medical Center07-06-2023 History of Present illness Narrative* Christopher Bonilla MD - 12/08/2022 2:58 PM EDT agree * Yanely Posadas RN - 12/08/2022 2:44 PM EDT patient had inr completed at [facility] patients inr is 2.7 (patients inr range is 2.0-3.0) patient is currently taking 4mg ,,Mon and 2mg all other days patients last [...] reading after dose change documented in this encounterUniversity Hospitals Cleveland Medical Center06-30-2023 History of Present illness Narrative* Rachelle Villa Ma - 12/02/2022 3:08 PM EDT Patient was notified and verbalized understanding Tracker updated Rachelle Villa Ma * Christopher Bonilla MD - 12/02/2022 2:14 PM EDT Hold today, then change to 2 mg a day, except 4 mg on Mon, , . Recheck one week * Rachelle Villa Ma - 12/02/2022 2:06 PM EDT patient had inr completed at [facility] patients inr is 3.4 (patients inr range [...] patient was instructed to continue same dose andrecheck in 1 week which she did Patient [...] up inr on 12/08/22 documented in this encounterUniversity Hospitals Cleveland Medical Center06-22-2023 History of Present illness Narrative* Elisabeth Bettencourt Ma - 11/24/2022 3:04 PM EDT Detailed message left on pt machine. Elisabeth Bettencourt Ma * Eddie Nunez MD - 11/24/2022 3:02 PM EDT INR slightly high on current dosage. No change. Recheck in 1 week. * Yanely Posadas RN - 11/24/2022 2:30 PM EDT patient had inr completed at [facility] patients inr is 3.2 (patients inr range [...] up inr on 12/02/22 documented in this encounterUniversity Hospitals Cleveland Medical Center06-06-2023 History of Present illness Narrative* Christopher Bonilla MD - 11/08/2022 3:57 PM EDT Instructed to increase to 4 mg T, TH, Sat, Monday, 2 mg a day rest of the week. Recheck one week. Patient notified in office. * Yanely Posadas RN - 11/08/2022 3:25 PM EDT patient had inr completed at [facility] patients inr is 1.5 (patients inr range [...] up inr on 11/22/22 documented in this encounterUniversity Hospitals Cleveland Medical Center06-06-2023 History of Present illness Narrative* Christopher Bonilla MD - 11/08/2022 3:40 PM EDT Patient presents with: Abdominal Pain: Follow up HPI: Patient presents today for office visit for follow up of epigastric pain. Still has complaintsof intermittent bloating of stomach and hearing "strange sounds" in belly. Rare heartburn. No issues with [...] swelling over last couple, gradually bigger. Appetite "pretty good" No N/V. Some reflux/ heartburn despite omeprazole. BMs daily, brown, formed. No change in urination. Hx tubal 30 years ago Hx of remaining ovary, tube and uterus removed. No hx kidney stones. X-ray completed and showed normal gas pattern with no obstruction. Sees Dr Calle, for her thyroid, Dr. Mariee for her lungs and [facility] for her heart. Bone scan done. [...] Abs Lymph 1.00 - 4.00 k/uL 1.82 Tate% % 14.5 Abs Tate <0.87 k/uL 1.44 (H) Eosin% % 1.4 [...] Negative Ketones, Urine Trace, Negative Negative Specific [place], Ur 1.005 - 1.030 1.014 Hemoglobin/Blood,Ur Negative, [...] FORTICAL) 200 unit/actuation nasal spray Use 1 [place] in the nose once daily. Back Brace [...] mouth twice daily. WALKER ROLLATOR SEAT WITH 6" WHEELS - RED Daily use R26.81 Gait [...] rash. PAST MEDICAL HISTORY Diagnosis Date A-fib ([facility]) Class 1 congestive heart failure, unspecified failure chronicity, systolic ([facility]) 11/21/2019 Dysphagia, unspecified(787.20) Esophageal reflux Esophagitis, unspecified Marfan's syndrome Moderate mitral regurgitation 06/18/2021 04/27/21 Echo at [facility]. Pleural effusion, right 05/05/2020 CXR 11/18/19 and [...] Pulse (!) 57 Ht 154.9 cm (5' 1") Wt 60.3 kg (133 lb) SpO2 95% [...] Consider gi/surgery if labs abnormal or changes. Christopher Bonilla MD documented in this encounterUniversity Hospitals Cleveland Medical Center05-18-2023 History of Present illness Narrative* Elizabet Almeida, RT(R) - 10/20/2022 12:30 PM EDT RADIOLOGY SERVICE PROGRESS NOTE SERVICE DATE: 10/20/2022 [...] Remain Seated(Not on Exam Table) Until Exam, Increased Observations [...] creatinine assay has traceable calibration to isotope dilution- mass spectrometry. Refer to KDIGO guidelines for clinical interpretation. In patients with unstable renal function, e.g. those with acute kidney injury, the eGFRmay not accurately reflect actual GFR. eGFR- Date Value Ref Range Status 05/11/2021 >60 Final P.O.C.T. RESULTS: N/A October 20, [address] PERFORMED: No IV SITE: Ambulatory: A peripheral IV was started in the Left antecubital site with a Angio cath: 24gauge. POST EXAM PIV STATUS: Discontinued PROCEDURE TYPE: NM INJECT: Whole Body Bone Scan. 20.9 mCi Tc99m MDP. No other medications given.. ADMINISTRATION TIME: 12:40 A Diagnostic radioactive procedure has taken place, with no further precautions necessary other than routine body substance precautions. More information regarding radiation safety can be found usingthis link: [email or web address] SIGNATURE: RT Kia(R) PATIENT NAME: Libra Ceja DATE: October 20, 2022 TIME: 12:45 PM PAGER/CONTACT #: documented in this encounterUniversity Hospitals Cleveland Medical Center05-11-2023 History of Present illness Narrative* Jennifer Kimball Ma - 10/13/2022 3:51 PM EDT Pt called and notified of changes below from [facility] Provider. Pt understood. Tracker has been updated and medication updated. Jennifer Kimball Ma * Joleen Delcid MD - 10/13/2022 2:37 PM EDT Go back to 4mg Mon,Thurs; and 2mg all other days Recheck in 2 weeks as planned Joleen Delcid MD * Yanely Posadas RN - 10/13/2022 2:00 PM EDT patient had inr completed at [facility] patients inr is 1.6 (patients inr range [...] up inr on 10/27/22 documented in this encounterUniversity Hospitals Cleveland Medical Center05-03-2023 Miscellaneous Notes* Telephone Encounter - Bhavya Arenas LPN - 10/05/2022 1:31 PM EDT PATIENT NOTIFIED OF SAME. Patient to call back to scheduled as she states "I'm not ready to complete this at this time." * Telephone Encounter - Usman Mehta PA-C - 10/05/2022 10:10 AM EDT Please let her know it was the bone fraction, not liver, that was elevated in alk phos. Because it is increasing, I would recommend bone scan. Telephone on 10/05/22 NM BONE WHOLE BODY Thanks, Tobi Mehta PA-C documented in this encounterUniversity Hospitals Cleveland Medical Center04-27-2023 History of Present illness Narrative* Christopher Bonilla MD - 09/29/2022 3:08 PM EDT agree * Yanely Posadas RN - 09/29/2022 2:04 PM EDT patient had inr completed at [facility] patients inr is 2.4 (patients inr range [...] reading since dose change documented in this encounterUniversity Hospitals Cleveland Medical Center04-25-2023 Miscellaneous Notes* Telephone Encounter - Yanely Posadas RN - 09/27/2022 11:40 AM EDT patient has been rescheduled to Monday * Telephone Encounter - Alma Delia Doyle RN - 09/27/2022 11:13 AM EDT Patient calling and states she has an appointment at the [facility] today at 1:15pm tohave her INR checked. Patient states her son [...] this week. Thank you. documented in this encounterUniversity Hospitals Cleveland Medical Center04-21-2023 History of Present illness Narrative* Concha Rocha RN - 09/23/2022 11:10 AM EDT [facility] Telephonic Outreach Provider Action/FYI Made call #2. NA/ Left Vm Contacted for: Routine Telephonic Outreach Contact made with patient: No, left message. Concha Rocha RN September 23, 2022 11:11 AM * Concha Rocha RN - 09/22/2022 4:04 PM EDT [facility] Telephonic Outreach Provider Too/CAROLYN Made call #1 to pt. NA/Left Vm. Contacted for: Routine Telephonic Outreach Contact made with patient: No, left message. Concha Rocha RN September 22, 2022 4:05 PM documented in this encounterUniversity Hospitals Cleveland Medical Center04-20-2023 Miscellaneous Notes* Telephone Encounter - Luz Dupree MA - 09/22/2022 1:35 PM EDT Patient notified & this MA repeated d/t renal status only to be taking BID. Patient verbalized understanding of instructions. Luz Dupree MA The following approved medication requests have been transmitted electronically. Requested Prescriptions Signed Prescriptions Disp Refills gabapentin (NEURONTIN) 100 mg capsule 180 capsule 1 Sig: Take 1 capsule by mouth twice daily for 180 days. Authorizing Provider: Usman MEHTA MA * Telephone Encounter - Usman Mehta PA-C - 09/22/2022 12:04 PM EDT She can only do twice a day r/t renal status. The following approved medication requests have been transmitted electronically. Requested Prescriptions Signed Prescriptions Disp Refills gabapentin (NEURONTIN) 100 mg capsule 180 capsule 1 Sig: Take 1 capsule by mouth twice daily for 180 days. Authorizing Provider: Usman MEHTA PA-C * Telephone Encounter - Cadence Bustillo LPN - 09/22/2022 11:03 AM EDT Patient states that Tobi told her she could increase to 2-3 tablets per day. Has taken 2 some days and now needs refill. Please send to pharmacy for her with new instructions. documented in this [facility]04-20-2023 Miscellaneous Notes* Telephone Encounter - Cadence Bustillo LPN - 09/22/2022 11:03 AM EDT Patient notified. * Telephone Encounter - Cadence Bustillo LPN - 09/22/2022 11:02 AM EDT ----- Message from Usman Mehta PA-C sent at 2022 9:32 PM EDT ----- Please let her know the XR shows normal gas pattern, no obstruction. Tobi Carmona PA-C documented in this [facility]04-20-2023 Miscellaneous Notes* Telephone Encounter - Cadence Bustillo LPN - 09/22/2022 11:01 AM EDT Patient notified and verbalizes understanding. * Telephone Encounter - Usman Mehta PA-C - 2022 9:36 PM EDT Please let her know lab results look okay except she is mildly dehydrated probably from lasix. Needs to push fluids a little. Alk phos is elevated but other liver enzymes are normal Please have lab run iso's. Telephone on 09/21/22 ALK PHOS ISOENZYM BL Tobi Carmona PA-C documented in this [facility]04-17-2023 History of Present illness Narrative* Marjan Garces, RT(R) - 09/19/2022 2:50 PM EDT Radiology Service Progress Note PATIENT NAME: Libra Ceja DATE OF SERVICE: September 19, 2022 [...] RT Araceli(R) September 19, 2022 3:04 PM documented in this encounterUniversity Hospitals Cleveland Medical Center04-17-2023 History of Present illness Narrative* Usman Mehta PA-C - 09/19/2022 2:20 PM EDT 76 year old female with c/o f/u back pain 08/29/2022 started on gabapentin 100mg daily HS has helped some. Taking Tylenol 500mg 2 tabs once a day 08/18/2022 MRI thoracic spine: Imaging findings suggesting acute or subacute compression deformities involving the T8, T9, and [id number] bodies with up to 10%, 50%, and [...] swelling over last couple, gradually bigger. Appetite "pretty good" No N/V. Some reflux/ heartburn despite omeprazole. [...] Lymph 1.00 - 4.00 k/uL 1.72 1.88 Tate% % 15.3 14.3 Abs Tate <0.87 k/uL 1.09 (H) 1.28 (H) Eosin% [...] Emphysema PAST MEDICAL HISTORY Diagnosis Date A-fib ([facility]) Class 1 congestive heart failure, unspecified failure chronicity, systolic ([facility]) 11/21/2019 Dysphagia, unspecified(787.20) Esophageal reflux Esophagitis, unspecified Marfan's syndrome Moderate mitral regurgitation 06/18/2021 04/27/21 Echo at [facility]. Pleural effusion, right 05/05/2020 CXR 11/18/19 and [...] FORTICAL) 200 unit/actuation nasal spray Use 1 [place] in the nose once daily. 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 Shortness of breath 09/16/2021 11/08/2022 Acute respiratory failure 07/22/20212022 Chronic passive congestion of liver 07/22/2021 11/08/2022 Cyst of kidney, acquired 07/22/2021 023 Ischemia and infarction of kidney 07/22/2021 11/08/2022 Overview: Has seen Dr Calvin Leukocytosis 07/22/2021 11/08/2022 Encounter for support and coordination of transi tion of care 07/20/2021 07/26/2022 Overview: Facility: [facility] Date of admission 07/14/2021 Date of discharge Prehospital work-up: Presented to 07/14/2021 to [facility] ED complaining of left-sided abdominal pain with multiple symptoms including cough, myalgias, nasal congestion, low dietary intake due to concerns that would aggravate stomach ache. Patient was exposed to Covid 2 weeks prior, unvaccinated. Vital signs: 98.3 [id number]/102-93% RA. Exam description: Tired, alert and nontoxic, [...] he could be done outpatient. 07/15/[address] research director [address]. Dwayne Garcia: Assessment right pleural effusion: Continue diuretic therapy, empiric antimicrobials, thoracentesis recommended, eventual right heart cath work and secondary work-up for pH outpatient basis. 07/15/2021 echocardiogram: LV size and LV SF WNL, EF 60 to 65%. RV normal size and RV SF EF. Left atrium moderately enlarged, right atrium mildly enlarged. MV: Moderate mitral annular calcification, 1-2+ LA. TV: Normal. AV: Diffuse aortic valve calcification. [...] of this encounter (statuses as of 11/09/2022) [facility]04-17-2023 History of Past illness Narrative* Problem Noted [...] care 07/20/2021 07/26/2022 Overview: Facility: [facility] Date of admission 07/14/2021 Date of discharge Prehospital work-up: Presented to 07/14/2021 to [facility] ED complaining of left-sided abdominal pain with multiple symptoms including cough, myalgias, nasal congestion, low dietary intake due to concerns that would aggravate stomach ache. Patient was exposed to Covid 2 weeks prior, unvaccinated. Vital signs: 98.3 [id number]/102-93% RA. Exam description: Tired, alert and nontoxic, [...] he could be done outpatient. 07/15/[address] research [address]. Dwayne Garcia: Assessment right pleural effusion: Continue diuretic therapy, empiric antimicrobials, thoracentesis recommended, eventual right heart cath work and secondary work-up for pH outpatient basis. 07/15/2021 echocardiogram: LV size and LV SF WNL, EF 60 to 65%. RV normal size and RV SF EF. Left atrium moderately enlarged, right atrium mildly enlarged. MV: Moderate mitral annular calcification, 1-2+ LA. TV: Normal. AV: Diffuse aortic valve calcification. 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 Shortness of breath 09/16/2021 11/08/2022 Acute respiratory failure 07/22/20212022 Chronic passive congestion of liver 07/22/2021 11/08/2022 Cyst of kidney, acquired 07/22/2021 023 Ischemia and infarction of kidney 07/22/2021 11/08/2022 Overview: Has seen Dr Calvin Leukocytosis 07/22/2021 11/08/2022 Encounter for support and coordination of transi tion of care 07/20/2021 07/26/2022 Overview: Facility: [facility] Date of admission 07/14/2021 Date of discharge Prehospital work-up: Presented to 07/14/2021 to [facility] ED complaining of left-sided abdominal pain with multiple symptoms including cough, myalgias, nasal congestion, low dietary intake due to concerns that would aggravate stomach ache. Patient was exposed to Covid 2 weeks prior, unvaccinated. Vital signs: 98.3 [id number]/102-93% RA. Exam description: Tired, alert and nontoxic, [...] he could be done outpatient. 07/15/[address]. Dwayne Garcia: Assessment right pleural effusion: Continue diuretic therapy, empiric antimicrobials, thoracentesis recommended, eventual right heart cath work and secondary work-up for pH outpatient basis. 07/15/2021 echocardiogram: LV size and LV SF WNL, EF 60 to 65%. RV normal size and RV SF EF. Left atrium moderately enlarged, right atrium mildly enlarged. MV: Moderate mitral annular calcification, 1-2+ LA. TV: Normal. AV: Diffuse aortic valve calcification. [...] of this encounter (statuses as of 11/25/2022) [facility]04-17-[facility] History of Past illness Narrative* Problem Noted [...] care 07/20/2021 07/26/2022 Overview: Facility: [facility] Date of admission 07/14/2021 Date of discharge Prehospital work-up: Presented to 07/14/2021 to [facility] ED complaining of left-sided abdominal pain with multiple symptoms including cough, myalgias, nasal congestion, low dietary intake due to concerns that would aggravate stomach ache. Patient was exposed to Covid 2 weeks prior, unvaccinated. Vital signs: 98.3 [id number]/102-93% RA. Exam description: Tired, alert and nontoxic, [...] he could be done outpatient. 07/15/[address] Dwayne Garcia: Assessment right pleural effusion: Continue diuretic therapy, empiric antimicrobials, thoracentesis recommended, eventual right heart cath work and secondary work-up for pH outpatient basis. 07/15/2021 echocardiogram: LV size and LV SF WNL, EF 60 to 65%. RV normal size and RV SF EF. Left atrium moderately enlarged, right atrium mildly enlarged. MV: Moderate mitral annular calcification, 1-2+ LA. TV: Normal. AV: Diffuse aortic valve calcification. 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 Shortness of breath 09/16/2021 11/08/2022 Acute respiratory failure 07/22/20212022 Chronic passive congestion of liver 07/22/2021 11/08/2022 Cyst of kidney, acquired 07/22/2021 023 Ischemia and infarction of kidney 07/22/2021 11/08/2022 Overview: Has seen Dr Calvin Leukocytosis 07/22/2021 11/08/2022 Encounter for support and coordination of transi tion of care 07/20/2021 07/26/2022 Overview: Facility: [facility] Date of admission 07/14/2021 Date of discharge Prehospital work-up: Presented to 07/14/2021 to [facility] ED complaining of left-sided abdominal pain with multiple symptoms including cough, myalgias, nasal congestion, low dietary intake due to concerns that would aggravate stomach ache. Patient was exposed to Covid 2 weeks prior, unvaccinated. Vital signs: 98.3 [id number]/102-93% RA. Exam description: Tired, alert and nontoxic, [...] he could be done outpatient. 07/15/[address] Dwayne Garcia: Assessment right pleural effusion: Continue diuretic therapy, empiric antimicrobials, thoracentesis recommended, eventual right heart cath work and secondary work-up for pH outpatient basis. 07/15/2021 echocardiogram: LV size and LV SF WNL, EF 60 to 65%. RV normal size and RV SF EF. Left atrium moderately enlarged, right atrium mildly enlarged. MV: Moderate mitral annular calcification, 1-2+ LA. TV: Normal. AV: Diffuse aortic valve calcification. [...] of this encounter (statuses as of 12/09/2022) [facility]04-[facility] History of Past illness Narrative* Problem Noted [...] care 07/20/2021 07/26/2022 Overview: Facility: [facility] Date of admission 07/14/2021 Date of discharge Prehospital work-up: Presented to 07/14/2021 to [facility] ED complaining of left-sided abdominal pain with multiple symptoms including cough, myalgias, nasal congestion, low dietary intake due to concerns that would aggravate stomach ache. Patient was exposed to Covid 2 weeks prior, unvaccinated. Vital signs: 98.3 [id number]/102-93% RA. Exam description: Tired, alert and nontoxic, [...] he could be done outpatient. 07/15/2021 consultation [address] research director [address]. Dwayne Garcia: Assessment right pleural effusion: Continue diuretic therapy, empiric antimicrobials, thoracentesis recommended, eventual right heart cath work and secondary work-up for pH outpatient basis. 07/15/2021 echocardiogram: LV size and LV SF WNL, EF 60 to 65%. RV normal size and RV SF EF. Left atrium moderately enlarged, right atrium mildly enlarged. MV: Moderate mitral annular calcification, 1-2+ LA. TV: Normal. AV: Diffuse aortic valve calcification. 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 Shortness of breath 09/16/2021 11/09/19 Acute respiratory failure 07/22/2021 Chronic passive congestion of liver 07/22/2021 11/08/2022 Cyst of kidney, acquired 07/22/202111/2022 Ischemia and infarction of kidney 07/22/2021 11/08/2022 Overview: Has seen Dr Calvin Leukocytosis 07/22/2021 11/08/2022 Encounter for support and co ordination of transition of care 07/20/2021 07/26/2022 Overview: Facility: [facility] Date of admission 07/14/2021 Date of discharge Prehospital work-up: Presented to 07/14/2021 to [facility] ED complaining of left-sided abdominal pain with multiple symptoms including cough, myalgias, nasal congestion, low dietary intake due to concerns that would aggravate stomach ache. Patient was exposed to Covid 2 weeks prior, unvaccinated. Vital signs: 98.3 C-[id number]/102-93% RA. Exam description: Tired, alert and nontoxic, [...] he could be done outpatient. 07/15/20[address] research director [address]. Dwayne Garcia: Assessment right pleural effusion: Continue diuretic therapy, empiric antimicrobials, thoracentesis recommended, eventual right heart cath work and secondary work-up for pH outpatient basis. 07/15/2021 echocardiogram: LV size and LV SF WNL, EF 60 to 65%. RV normal size and RV SF EF. Left atrium moderately enlarged, right atrium mildly enlarged. MV: Moderate mitral annular calcification, 1-2+ LA. TV: Normal. AV: Diffuse aortic valve calcification. [...] of this encounter (statuses as of 01/14/2023) [facility]04-17-2023 History of Past illness Narrative* Problem Noted [...] care 07/20/2021 07/26/2022 Overview: Facility: [facility] Date of admission 07/14/2021 Date of discharge Prehospital work-up: Presented to 07/14/2021 to [facility] ED complaining of left-sided abdominal pain with multiple symptoms including cough, myalgias, nasal congestion, low dietary intake due to concerns that would aggravate stomach ache. Patient was exposed to Covid 2 weeks prior, unvaccinated. Vital signs: 98.3 [id number]/102-93% RA. Exam description: Tired, alert and nontoxic, [...] he could be done outpatient. 07/15/20[address] research director [address]. Dwayne Garcia: Assessment right pleural effusion: Continue diuretic therapy, empiric antimicrobials, thoracentesis recommended, eventual right heart cath work and secondary work-up for pH outpatient basis. 07/15/2021 echocardiogram: LV size and LV SF WNL, EF 60 to 65%. RV normal size and RV SF EF. Left atrium moderately enlarged, right atrium mildly enlarged. MV: Moderate mitral annular calcification, 1-2+ LA. TV: Normal. AV: Diffuse aortic valve calcification. 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 Shortness of breath 09/16/2021 11/09/19 Acute respiratory failure 07/22/2021 Chronic passive congestion of liver 07/22/2021 11/08/2022 Cyst of kidney, acquired 07/22/202111/2022 Ischemia and infarction of kidney 07/22/2021 11/08/2022 Overview: Has seen Dr Calvin Leukocytosis 07/22/2021 11/08/2022 Encounter for support and co ordination of transition of care 07/20/2021 07/26/2022 Overview: Facility: [facility] Date of admission 07/14/2021 Date of discharge Prehospital work-up: Presented to 07/14/2021 to [facility] ED complaining of left-sided abdominal pain with multiple symptoms including cough, myalgias, nasal congestion, low dietary intake due to concerns that would aggravate stomach ache. Patient was exposed to Covid 2 weeks prior, unvaccinated. Vital signs: 98.3 [id number]/102-93% RA. Exam description: Tired, alert and nontoxic, [...] he could be done outpatient. 07/15/20[address] research [address]. Dwayne Garcia: Assessment right pleural effusion: Continue diuretic therapy, empiric antimicrobials, thoracentesis recommended, eventual right heart cath work and secondary work-up for pH outpatient basis. 07/15/2021 echocardiogram: LV size and LV SF WNL, EF 60 to 65%. RV normal size and RV SF EF. Left atrium moderately enlarged, right atrium mildly enlarged. MV: Moderate mitral annular calcification, 1-2+ LA. TV: Normal. AV: Diffuse aortic valve calcification. [...] of this encounter (statuses as of 01/14/2023) [facility]04-17-2023 History of Past illness Narrative* Problem Noted [...] care 07/20/2021 07/26/2022 Overview: Facility: [facility] Date of admission 07/14/2021 Date of discharge Prehospital work-up: Presented to 07/14/2021 to [facility] ED complaining of left-sided abdominal pain with multiple symptoms including cough, myalgias, nasal congestion, low dietary intake due to concerns that would aggravate stomach ache. Patient was exposed to Covid 2 weeks prior, unvaccinated. Vital signs: 98.3 M-[id number]/102-93% RA. Exam description: Tired, alert and nontoxic, [...] he could be done outpatient. 07/15/[address] research director [address]. Dwayne Garcia: Assessment right pleural effusion: Continue diuretic therapy, empiric antimicrobials, thoracentesis recommended, eventual right heart cath work and secondary work-up for pH outpatient basis. 07/15/2021 echocardiogram: LV size and LV SF WNL, EF 60 to 65%. RV normal size and RV SF EF. Left atrium moderately enlarged, right atrium mildly enlarged. MV: Moderate mitral annular calcification, 1-2+ LA. TV: Normal. AV: Diffuse aortic valve calcification. 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 Shortness of breath 09/16/2021 11/09/19 Acute respiratory failure 07/22/2021 Chronic passive congestion of liver 07/22/2021 11/08/2022 Cyst of kidney, acquired 07/22/202111/2022 Ischemia and infarction of kidney 07/22/2021 11/08/2022 Overview: Has seen Dr Calvin Leukocytosis 07/22/2021 11/08/2022 Encounter for support and co ordination of transition of care 07/20/2021 07/26/2022 Overview: Facility: [facility] Date of admission 07/14/2021 Date of discharge Prehospital work-up: Presented to 07/14/2021 to [facility] ED complaining of left-sided abdominal pain with multiple symptoms including cough, myalgias, nasal congestion, low dietary intake due to concerns that would aggravate stomach ache. Patient was exposed to Covid 2 weeks prior, unvaccinated. Vital signs: 98.3 [id number]/102-93% RA. Exam description: Tired, alert and nontoxic, [...] he could be done outpatient. 07/15/[address] research [address]. Dwayne Garcia: Assessment right pleural effusion: Continue diuretic therapy, empiric antimicrobials, thoracentesis recommended, eventual right heart cath work and secondary work-up for pH outpatient basis. 07/15/2021 echocardiogram: LV size and LV SF WNL, EF 60 to 65%. RV normal size and RV SF EF. Left atrium moderately enlarged, right atrium mildly enlarged. MV: Moderate mitral annular calcification, 1-2+ LA. TV: Normal. AV: Diffuse aortic valve calcification. [...] of this encounter (statuses as of 01/18/2023) [facility]04-17-2023 History of Past illness Narrative* Problem Noted [...] care 07/20/2021 07/26/2022 Overview: Facility: [facility] Date of admission 07/14/2021 Date of discharge Prehospital work-up: Presented to 07/14/2021 to [facility] ED complaining of left-sided abdominal pain with multiple symptoms including cough, myalgias, nasal congestion, low dietary intake due to concerns that would aggravate stomach ache. Patient was exposed to Covid 2 weeks prior, unvaccinated. Vital signs: 98.3 [id number]/102-93% RA. Exam description: Tired, alert and nontoxic, [...] he could be done outpatient. 07/15/[address] research [address]. Dwayne Garcia: Assessment right pleural effusion: Continue diuretic therapy, empiric antimicrobials, thoracentesis recommended, eventual right heart cath work and secondary work-up for pH outpatient basis. 07/15/2021 echocardiogram: LV size and LV SF WNL, EF 60 to 65%. RV normal size and RV SF EF. Left atrium moderately enlarged, right atrium mildly enlarged. MV: Moderate mitral annular calcification, 1-2+ LA. TV: Normal. AV: Diffuse aortic valve calcification. 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 Shortness of breath 09/16/2021 11/09/19 Acute respiratory failure 07/22/2021 Chronic passive congestion of liver 07/22/2021 11/08/2022 Cyst of kidney, acquired 07/22/202111/2022 Ischemia and infarction of kidney 07/22/2021 11/08/2022 Overview: Has seen Dr Calvin Leukocytosis 07/22/2021 11/08/2022 Encounter for support and co ordination of transition of care 07/20/2021 07/26/2022 Overview: Facility: [facility] Date of admission 07/14/2021 Date of discharge Prehospital work-up: Presented to 07/14/2021 to [facility] ED complaining of left-sided abdominal pain with multiple symptoms including cough, myalgias, nasal congestion, low dietary intake due to concerns that would aggravate stomach ache. Patient was exposed to Covid 2 weeks prior, unvaccinated. Vital signs: 98.3 F-[id number]/102-93% RA. Exam description: Tired, alert and nontoxic, [...] he could be done outpatient. 07/15/20[address] agricultural research director [address]. Dwayne Garcia: Assessment right pleural effusion: Continue diuretic therapy, empiric antimicrobials, thoracentesis recommended, eventual right heart cath work and secondary work-up for pH outpatient basis. 07/15/2021 echocardiogram: LV size and LV SF WNL, EF 60 to 65%. RV normal size and RV SF EF. Left atrium moderately enlarged, right atrium mildly enlarged. MV: Moderate mitral annular calcification, 1-2+ LA. TV: Normal. AV: Diffuse aortic valve calcification. [...] of this encounter (statuses as of 01/23/2023) [facility]04-17-2023 History of Past illness Narrative* Problem Noted [...] care 07/20/2021 07/26/2022 Overview: Facility: [facility] Date of admission 07/14/2021 Date of discharge Prehospital work-up: Presented to 07/14/2021 to [facility] ED complaining of left-sided abdominal pain with multiple symptoms including cough, myalgias, nasal congestion, low dietary intake due to concerns that would aggravate stomach ache. Patient was exposed to Covid 2 weeks prior, unvaccinated. Vital signs: 98.3 [id number]/102-93% RA. Exam description: Tired, alert and nontoxic, [...] he could be done outpatient. 07/15/[address] research [address] Dwayne Garcia: Assessment right pleural effusion: Continue diuretic therapy, empiric antimicrobials, thoracentesis recommended, eventual right heart cath work and secondary work-up for pH outpatient basis. 07/15/2021 echocardiogram: LV size and LV SF WNL, EF 60 to 65%. RV normal size and RV SF EF. Left atrium moderately enlarged, right atrium mildly enlarged. MV: Moderate mitral annular calcification, 1-2+ LA. TV: Normal. AV: Diffuse aortic valve calcification. 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 Shortness of breath 09/16/2021 11/09/19 Acute respiratory failure 07/22/2021 Chronic passive congestion of liver 07/22/2021 11/08/2022 Cyst of kidney, acquired 07/22/202111/2022 Ischemia and infarction of kidney 07/22/2021 11/08/2022 Overview: Has seen Dr Calvin Leukocytosis 07/22/2021 11/08/2022 Encounter for support and co ordination of transition of care 07/20/2021 07/26/2022 Overview: Facility: [facility] Date of admission 07/14/2021 Date of discharge Prehospital work-up: Presented to 07/14/2021 to [facility] ED complaining of left-sided abdominal pain with multiple symptoms including cough, myalgias, nasal congestion, low dietary intake due to concerns that would aggravate stomach ache. Patient was exposed to Covid 2 weeks prior, unvaccinated. Vital signs: 98.3 F-[id number]/102-93% RA. Exam description: Tired, alert and nontoxic, [...] he could be done outpatient. 07/15/[address] agricultural research director [address]. Dwayne Garcia: Assessment right pleural effusion: Continue diuretic therapy, empiric antimicrobials, thoracentesis recommended, eventual right heart cath work and secondary work-up for pH outpatient basis. 07/15/2021 echocardiogram: LV size and LV SF WNL, EF 60 to 65%. RV normal size and RV SF EF. Left atrium moderately enlarged, right atrium mildly enlarged. MV: Moderate mitral annular calcification, 1-2+ LA. TV: Normal. AV: Diffuse aortic valve calcification. [...] of this encounter (statuses as of 01/27/2023) [facility]04-17-2023 History of Past illness Narrative* Problem Noted [...] care 07/20/2021 07/26/2022 Overview: Facility: [facility] Date of admission 07/14/2021 Date of discharge Prehospital work-up: Presented to 07/14/2021 to [facility] ED complaining of left-sided abdominal pain with multiple symptoms including cough, myalgias, nasal congestion, low dietary intake due to concerns that would aggravate stomach ache. Patient was exposed to Covid 2 weeks prior, unvaccinated. Vital signs: 98.3 F-[id number]/102-93% RA. Exam description: Tired, alert and nontoxic, [...] he could be done outpatient. 07/15/[address] research [address]. Dwayne Garcia: Assessment right pleural effusion: Continue diuretic therapy, empiric antimicrobials, thoracentesis recommended, eventual right heart cath work and secondary work-up for pH outpatient basis. 07/15/2021 echocardiogram: LV size and LV SF WNL, EF 60 to 65%. RV normal size and RV SF EF. Left atrium moderately enlarged, right atrium mildly enlarged. MV: Moderate mitral annular calcification, 1-2+ LA. TV: Normal. AV: Diffuse aortic valve calcification. 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 Shortness of breath 09/16/2021 11/09/19 Acute respiratory failure 07/22/2021 Chronic passive congestion of liver 07/22/2021 11/08/2022 Cyst of kidney, acquired 07/22/202111/2022 Ischemia and infarction of kidney 07/22/2021 11/08/2022 Overview: Has seen Dr Calvin Leukocytosis 07/22/2021 11/08/2022 Encounter for support and co ordination of transition of care 07/20/2021 07/26/2022 Overview: Facility: [facility] Date of admission 07/14/2021 Date of discharge Prehospital work-up: Presented to 07/14/2021 to [facility] ED complaining of left-sided abdominal pain with multiple symptoms including cough, myalgias, nasal congestion, low dietary intake due to concerns that would aggravate stomach ache. Patient was exposed to Covid 2 weeks prior, unvaccinated. Vital signs: 98.3 D-[id number]/102-93% RA. Exam description: Tired, alert and nontoxic, [...] he could be done outpatient. 07/15/[address] research director [address]. Dwayne Garcia: Assessment right pleural effusion: Continue diuretic therapy, empiric antimicrobials, thoracentesis recommended, eventual right heart cath work and secondary work-up for pH outpatient basis. 07/15/2021 echocardiogram: LV size and LV SF WNL, EF 60 to 65%. RV normal size and RV SF EF. Left atrium moderately enlarged, right atrium mildly enlarged. MV: Moderate mitral annular calcification, 1-2+ LA. TV: Normal. AV: Diffuse aortic valve calcification. [...] of this encounter (statuses as of 02/16/2023) [facility]04-17-2023 History of Past illness Narrative* Problem Noted [...] care 07/20/2021 07/26/2022 Overview: Facility: [facility] Date of admission 07/14/2021 Date of discharge Prehospital work-up: Presented to 07/14/2021 to [facility] ED complaining of left-sided abdominal pain with multiple symptoms including cough, myalgias, nasal congestion, low dietary intake due to concerns that would aggravate stomach ache. Patient was exposed to Covid 2 weeks prior, unvaccinated. Vital signs: 98.3 C-174-27-143/102-93% RA. Exam description: Tired, alert and nontoxic, [...] he could be done outpatient. 07/15/[address] Dwayne Garcia: Assessment right pleural effusion: Continue diuretic therapy, empiric antimicrobials, thoracentesis recommended, eventual right heart cath work and secondary work-up for pH outpatient basis. 07/15/2021 echocardiogram: LV size and LV SF WNL, EF 60 to 65%. RV normal size and RV SF EF. Left atrium moderately enlarged, right atrium mildly enlarged. MV: Moderate mitral annular calcification, 1-2+ LA. TV: Normal. AV: Diffuse aortic valve calcification. 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 Shortness of breath 09/16/2021 11/09/19 Acute respiratory failure 07/22/2021 Chronic passive congestion of liver 07/22/2021 11/08/2022 Cyst of kidney, acquired 07/22/202111/2022 Ischemia and infarction of kidney 07/22/2021 11/08/2022 Overview: Has seen Dr Calvin Leukocytosis 07/22/2021 11/08/2022 Encounter for support and co ordination of transition of care 07/20/2021 07/26/2022 Overview: Facility: [facility] Date of admission 07/14/2021 Date of discharge Prehospital work-up: Presented to 07/14/2021 to [facility] ED complaining of left-sided abdominal pain with multiple symptoms including cough, myalgias, nasal congestion, low dietary intake due to concerns that would aggravate stomach ache. Patient was exposed to Covid 2 weeks prior, unvaccinated. Vital signs: 98.3 [id number]/102-93% RA. Exam description: Tired, alert and nontoxic, [...] he could be done outpatient. 07/15/[address] research [address] Dwayne Garcia: Assessment right pleural effusion: Continue diuretic therapy, empiric antimicrobials, thoracentesis recommended, eventual right heart cath work and secondary work-up for pH outpatient basis. 07/15/2021 echocardiogram: LV size and LV SF WNL, EF 60 to 65%. RV normal size and RV SF EF. Left atrium moderately enlarged, right atrium mildly enlarged. MV: Moderate mitral annular calcification, 1-2+ LA. TV: Normal. AV: Diffuse aortic valve calcification. [...] of this encounter (statuses as of 02/18/2023) [facility]04-17-2023 History of Past illness Narrative* Problem Noted [...] care 07/20/2021 07/26/2022 Overview: Facility: [facility] Date of admission 07/14/2021 Date of discharge Prehospital work-up: Presented to 07/14/2021 to [facility] ED complaining of left-sided abdominal pain with multiple symptoms including cough, myalgias, nasal congestion, low dietary intake due to concerns that would aggravate stomach ache. Patient was exposed to Covid 2 weeks prior, unvaccinated. Vital signs: 98.3 M-165-86-143/102-93% RA. Exam description: Tired, alert and nontoxic, [...] he could be done outpatient. 07/15/[address] research [address] Dwayne Garcia: Assessment right pleural effusion: Continue diuretic therapy, empiric antimicrobials, thoracentesis recommended, eventual right heart cath work and secondary work-up for pH outpatient basis. 07/15/2021 echocardiogram: LV size and LV SF WNL, EF 60 to 65%. RV normal size and RV SF EF. Left atrium moderately enlarged, right atrium mildly enlarged. MV: Moderate mitral annular calcification, 1-2+ LA. TV: Normal. AV: Diffuse aortic valve calcification. 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 Shortness of breath 09/16/2021 11/09/19 Acute respiratory failure 07/22/2021 Chronic passive congestion of liver 07/22/2021 11/08/2022 Cyst of kidney, acquired 07/22/202111/2022 Ischemia and infarction of kidney 07/22/2021 11/08/2022 Overview: Has seen Dr Calvin Leukocytosis 07/22/2021 11/08/2022 Encounter for support and co ordination of transition of care 07/20/2021 07/26/2022 Overview: Facility: [facility] Date of admission 07/14/2021 Date of discharge Prehospital work-up: Presented to 07/14/2021 to [facility] ED complaining of left-sided abdominal pain with multiple symptoms including cough, myalgias, nasal congestion, low dietary intake due to concerns that would aggravate stomach ache. Patient was exposed to Covid 2 weeks prior, unvaccinated. Vital signs: 98.3 U-292-82-143/102-93% RA. Exam description: Tired, alert and nontoxic, [...] he could be done outpatient. 07/15/[address] research director [address]. Dwayne Garcia: Assessment right pleural effusion: Continue diuretic therapy, empiric antimicrobials, thoracentesis recommended, eventual right heart cath work and secondary work-up for pH outpatient basis. 07/15/2021 echocardiogram: LV size and LV SF WNL, EF 60 to 65%. RV normal size and RV SF EF. Left atrium moderately enlarged, right atrium mildly enlarged. MV: Moderate mitral annular calcification, 1-2+ LA. TV: Normal. AV: Diffuse aortic valve calcification. [...] of this encounter (statuses as of 02/22/2023) [facility]04-17-2023 History of Past illness Narrative* Problem Noted [...] care 07/20/2021 07/26/2022 Overview: Facility: [facility] Date of admission 07/14/2021 Date of discharge Prehospital work-up: Presented to 07/14/2021 to [facility] ED complaining of left-sided abdominal pain with multiple symptoms including cough, myalgias, nasal congestion, low dietary intake due to concerns that would aggravate stomach ache. Patient was exposed to Covid 2 weeks prior, unvaccinated. Vital signs: 98.3 M-300-01-143/102-93% RA. Exam description: Tired, alert and nontoxic, [...] he could be done outpatient. 07/15/[address] research [address] Dwayne Garica: Assessment right pleural effusion: Continue diuretic therapy, empiric antimicrobials, thoracentesis recommended, eventual right heart cath work and secondary work-up for pH outpatient basis. 07/15/2021 echocardiogram: LV size and LV SF WNL, EF 60 to 65%. RV normal size and RV SF EF. Left atrium moderately enlarged, right atrium mildly enlarged. MV: Moderate mitral annular calcification, 1-2+ LA. TV: Normal. AV: Diffuse aortic valve calcification. 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 Shortness of breath 09/16/2021 11/09/19 Acute respiratory failure 07/22/2021 Chronic passive congestion of liver 07/22/2021 11/08/2022 Cyst of kidney, acquired 07/22/202111/2022 Ischemia and infarction of kidney 07/22/2021 11/08/2022 Overview: Has seen Dr Calvin Leukocytosis 07/22/2021 11/08/2022 Encounter for support and co ordination of transition of care 07/20/2021 07/26/2022 Overview: Facility: [facility] Date of admission 07/14/2021 Date of discharge Prehospital work-up: Presented to 07/14/2021 to [facility] ED complaining of left-sided abdominal pain with multiple symptoms including cough, myalgias, nasal congestion, low dietary intake due to concerns that would aggravate stomach ache. Patient was exposed to Covid 2 weeks prior, unvaccinated. Vital signs: 98.3 [id number]/102-93% RA. Exam description: Tired, alert and nontoxic, [...] he could be done outpatient. 07/15/2021 consultation agricultural research director Dr. Dwayne Garcia: Assessment right pleural effusion: Continue diuretic therapy, empiric antimicrobials, thoracentesis recommended, eventual right heart cath work and secondary work-up for pH outpatient basis. 07/15/2021 echocardiogram: LV size and LV SF WNL, EF 60 to 65%. RV normal size and RV SF EF. Left atrium moderately enlarged, right atrium mildly enlarged. MV: Moderate mitral annular calcification, 1-2+ LA. TV: Normal. AV: Diffuse aortic valve calcification. [...] of this encounter (statuses as of 02/28/2023) [facility]04-17-2023 History of Past illness Narrative* Problem Noted [...] care 07/20/2021 07/26/2022 Overview: Facility: [facility] Date of admission 07/14/2021 Date of discharge Prehospital work-up: Presented to 07/14/2021 to [facility] ED complaining of left-sided abdominal pain with multiple symptoms including cough, myalgias, nasal congestion, low dietary intake due to concerns that would aggravate stomach ache. Patient was exposed to Covid 2 weeks prior, unvaccinated. Vital signs: 98.3 [id number]/102-93% RA. Exam description: Tired, alert and nontoxic, [...] he could be done outpatient. 07/15/[address] research director [address]. Dwayne Garcia: Assessment right pleural effusion: Continue diuretic therapy, empiric antimicrobials, thoracentesis recommended, eventual right heart cath work and secondary work-up for pH outpatient basis. 07/15/2021 echocardiogram: LV size and LV SF WNL, EF 60 to 65%. RV normal size and RV SF EF. Left atrium moderately enlarged, right atrium mildly enlarged. MV: Moderate mitral annular calcification, 1-2+ LA. TV: Normal. AV: Diffuse aortic valve calcification. 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 Shortness of breath 09/16/2021 11/09/19 Acute respiratory failure 07/22/2021 Chronic passive congestion of liver 07/22/2021 11/08/2022 Cyst of kidney, acquired 07/22/202111/2022 Ischemia and infarction of kidney 07/22/2021 11/08/2022 Overview: Has seen Dr Calvin Leukocytosis 07/22/2021 11/08/2022 Encounter for support and co ordination of transition of care 07/20/2021 07/26/2022 Overview: Facility: [facility] Date of admission 07/14/2021 Date of discharge Prehospital work-up: Presented to 07/14/2021 to [facility] ED complaining of left-sided abdominal pain with multiple symptoms including cough, myalgias, nasal congestion, low dietary intake due to concerns that would aggravate stomach ache. Patient was exposed to Covid 2 weeks prior, unvaccinated. Vital signs: 98.3 [id number]/102-93% RA. Exam description: Tired, alert and nontoxic, [...] he could be done outpatient. 07/15/2021 [address] agricultural research director [address]. Dwayne Garcia: Assessment right pleural effusion: Continue diuretic therapy, empiric antimicrobials, thoracentesis recommended, eventual right heart cath work and secondary work-up for pH outpatient basis. 07/15/2021 echocardiogram: LV size and LV SF WNL, EF 60 to 65%. RV normal size and RV SF EF. Left atrium moderately enlarged, right atrium mildly enlarged. MV: Moderate mitral annular calcification, 1-2+ LA. TV: Normal. AV: Diffuse aortic valve calcification. [...] release 24-hour: 1 capsule daily Referral/follow-up: Dr. Flaqutio Mariee pulmonology 2 weeks Hypokalemia 07/09/2021 11/08/2022 [...] of this encounter (statuses as of 03/15/2023) [facility]04-17-2023 History of Past illness Narrative* Problem Noted [...] care 07/20/2021 07/26/2022 Overview: Facility: [facility] Date of admission 07/14/2021 Date of discharge Prehospital work-up: Presented to 07/14/2021 to [facility] ED complaining of left-sided abdominal pain with multiple symptoms including cough, myalgias, nasal congestion, low dietary intake due to concerns that would aggravate stomach ache. Patient was exposed to Covid 2 weeks prior, unvaccinated. Vital signs: 98.3 [id number]/102-93% RA. Exam description: Tired, alert and nontoxic, [...] he could be done outpatient. 07/15/20[address] research director [address]. Dwayne Garcia: Assessment right pleural effusion: Continue diuretic therapy, empiric antimicrobials, thoracentesis recommended, eventual right heart cath work and secondary work-up for pH outpatient basis. 07/15/2021 echocardiogram: LV size and LV SF WNL, EF 60 to 65%. RV normal size and RV SF EF. Left atrium moderately enlarged, right atrium mildly enlarged. MV: Moderate mitral annular calcification, 1-2+ LA. TV: Normal. AV: Diffuse aortic valve calcification. 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 Shortness of breath 09/16/2021 11/09/19 Acute respiratory failure 07/22/2021 Chronic passive congestion of liver 07/22/2021 11/08/2022 Cyst of kidney, acquired 07/22/202111/2022 Ischemia and infarction of kidney 07/22/2021 11/08/2022 Overview: Has seen Dr Calvin Leukocytosis 07/22/2021 11/08/2022 Encounter for support and co ordination of transition of care 07/20/2021 07/26/2022 Overview: Facility: [facility] Date of admission 07/14/2021 Date of discharge Prehospital work-up: Presented to 07/14/2021 to [facility] ED complaining of left-sided abdominal pain with multiple symptoms including cough, myalgias, nasal congestion, low dietary intake due to concerns that would aggravate stomach ache. Patient was exposed to Covid 2 weeks prior, unvaccinated. Vital signs: 98.3 [id number]/102-93% RA. Exam description: Tired, alert and nontoxic, [...] he could be done outpatient. 07/15/20[address] consultation agricultural research director [address]. Dwayne Garcia: Assessment right pleural effusion: Continue diuretic therapy, empiric antimicrobials, thoracentesis recommended, eventual right heart cath work and secondary work-up for pH outpatient basis. 07/15/2021 echocardiogram: LV size and LV SF WNL, EF 60 to 65%. RV normal size and RV SF EF. Left atrium moderately enlarged, right atrium mildly enlarged. MV: Moderate mitral annular calcification, 1-2+ LA. TV: Normal. AV: Diffuse aortic valve calcification. [...] infectious process 07/16/2021: Ultrasound-guided thoracentesis Dr. Gary Reeys: 670 mL of blood-tinged cloudy fluid drained [...] of this encounter (statuses as of 04/09/2023) [facility]04-17-2023 History of Past illness Narrative* Problem Noted [...] care 07/20/2021 07/26/2022 Overview: Facility: [facility] Date of admission 07/14/2021 Date of discharge Prehospital work-up: Presented to 07/14/2021 to [facility] ED complaining of left-sided abdominal pain with multiple symptoms including cough, myalgias, nasal congestion, low dietary intake due to concerns that would aggravate stomach ache. Patient was exposed to Covid 2 weeks prior, unvaccinated. Vital signs: 98.3 [id number]/102-93% RA. Exam description: Tired, alert and nontoxic, [...] he could be done outpatient. 07/15/20[address] research director [address]. Dwayne Garcia: Assessment right pleural effusion: Continue diuretic therapy, empiric antimicrobials, thoracentesis recommended, eventual right heart cath work and secondary work-up for pH outpatient basis. 07/15/2021 echocardiogram: LV size and LV SF WNL, EF 60 to 65%. RV normal size and RV SF EF. Left atrium moderately enlarged, right atrium mildly enlarged. MV: Moderate mitral annular calcification, 1-2+ LA. TV: Normal. AV: Diffuse aortic valve calcification. 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 Shortness of breath 09/16/2021 11/09/19 Acute respiratory failure 07/22/2021 Chronic passive congestion of liver 07/22/2021 11/08/2022 Cyst of kidney, acquired 07/22/202111/2022 Ischemia and infarction of kidney 07/22/2021 11/08/2022 Overview: Has seen Dr Calvin Leukocytosis 07/22/2021 11/08/2022 Encounter for support and co ordination of transition of care 07/20/2021 07/26/2022 Overview: Facility: [facility] Date of admission 07/14/2021 Date of discharge Prehospital work-up: Presented to 07/14/2021 to [facility] ED complaining of left-sided abdominal pain with multiple symptoms including cough, myalgias, nasal congestion, low dietary intake due to concerns that would aggravate stomach ache. Patient was exposed to Covid 2 weeks prior, unvaccinated. Vital signs: 98.3 [id number]/102-93% RA. Exam description: Tired, alert and nontoxic, [...] he could be done outpatient. 07/15/[address] agricultural research director [address]. Dwayne Garcia: Assessment right pleural effusion: Continue diuretic therapy, empiric antimicrobials, thoracentesis recommended, eventual right heart cath work and secondary work-up for pH outpatient basis. 07/15/2021 echocardiogram: LV size and LV SF WNL, EF 60 to 65%. RV normal size and RV SF EF. Left atrium moderately enlarged, right atrium mildly enlarged. MV: Moderate mitral annular calcification, 1-2+ LA. TV: Normal. AV: Diffuse aortic valve calcification. [...] of this encounter (statuses as of 04/12/2023) [facility]04-17-2023 History of Past illness Narrative* Problem Noted [...] care 07/20/2021 07/26/2022 Overview: Facility: [facility] Date of admission 07/14/2021 Date of discharge Prehospital work-up: Presented to 07/14/2021 to [facility] ED complaining of left-sided abdominal pain with multiple symptoms including cough, myalgias, nasal congestion, low dietary intake due to concerns that would aggravate stomach ache. Patient was exposed to Covid 2 weeks prior, unvaccinated. Vital signs: 98.3 [id number]/102-93% RA. Exam description: Tired, alert and nontoxic, [...] he could be done outpatient. 07/15/[address] research director [address]. Dwayne Garcia: Assessment right pleural effusion: Continue diuretic therapy, empiric antimicrobials, thoracentesis recommended, eventual right heart cath work and secondary work-up for pH outpatient basis. 07/15/2021 echocardiogram: LV size and LV SF WNL, EF 60 to 65%. RV normal size and RV SF EF. Left atrium moderately enlarged, right atrium mildly enlarged. MV: Moderate mitral annular calcification, 1-2+ LA. TV: Normal. AV: Diffuse aortic valve calcification. 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 Shortness of breath 09/16/2021 11/09/19 Acute respiratory failure 07/22/2021 Chronic passive congestion of liver 07/22/2021 11/08/2022 Cyst of kidney, acquired 07/22/202111/2022 Ischemia and infarction of kidney 07/22/2021 11/08/2022 Overview: Has seen Dr Calvin Leukocytosis 07/22/2021 11/08/2022 Encounter for support and co ordination of transition of care 07/20/2021 07/26/2022 Overview: Facility: [facility] Date of admission 07/14/2021 Date of discharge Prehospital work-up: Presented to 07/14/2021 to [facility] ED complaining of left-sided abdominal pain with multiple symptoms including cough, myalgias, nasal congestion, low dietary intake due to concerns that would aggravate stomach ache. Patient was exposed to Covid 2 weeks prior, unvaccinated. Vital signs: 98.3 [id number]/102-93% RA. Exam description: Tired, alert and nontoxic, [...] he could be done outpatient. 07/15/[address] agricultural research director [address]. Dwayne Garcia: Assessment right pleural effusion: Continue diuretic therapy, empiric antimicrobials, thoracentesis recommended, eventual right heart cath work and secondary work-up for pH outpatient basis. 07/15/2021 echocardiogram: LV size and LV SF WNL, EF 60 to 65%. RV normal size and RV SF EF. Left atrium moderately enlarged, right atrium mildly enlarged. MV: Moderate mitral annular calcification, 1-2+ LA. TV: Normal. AV: Diffuse aortic valve calcification. [...] of this encounter (statuses as of 05/02/2023) [facility]04-17-2023 History of Past illness Narrative* Problem Noted [...] care 07/20/2021 07/26/2022 Overview: Facility: [facility] Date of admission 07/14/2021 Date of discharge Prehospital work-up: Presented to 07/14/2021 to [facility] ED complaining of left-sided abdominal pain with multiple symptoms including cough, myalgias, nasal congestion, low dietary intake due to concerns that would aggravate stomach ache. Patient was exposed to Covid 2 weeks prior, unvaccinated. Vital signs: 98.3 [id number]/102-93% RA. Exam description: Tired, alert and nontoxic, [...] he could be done outpatient. 07/15/[address] research [address]. Dwayne Garcia: Assessment right pleural effusion: Continue diuretic therapy, empiric antimicrobials, thoracentesis recommended, eventual right heart cath work and secondary work-up for pH outpatient basis. 07/15/2021 echocardiogram: LV size and LV SF WNL, EF 60 to 65%. RV normal size and RV SF EF. Left atrium moderately enlarged, right atrium mildly enlarged. MV: Moderate mitral annular calcification, 1-2+ LA. TV: Normal. AV: Diffuse aortic valve calcification. 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 Shortness of breath 09/16/2021 11/09/19 Acute respiratory failure 07/22/2021 Chronic passive congestion of liver 07/22/2021 11/08/2022 Cyst of kidney, acquired 07/22/202111/2022 Ischemia and infarction of kidney 07/22/2021 11/08/2022 Overview: Has seen Dr Calvin Leukocytosis 07/22/2021 11/08/2022 Encounter for support and co ordination of transition of care 07/20/2021 07/26/2022 Overview: Facility: [facility] Date of admission 07/14/2021 Date of discharge Prehospital work-up: Presented to 07/14/2021 to [facility] ED complaining of left-sided abdominal pain with multiple symptoms including cough, myalgias, nasal congestion, low dietary intake due to concerns that would aggravate stomach ache. Patient was exposed to Covid 2 weeks prior, unvaccinated. Vital signs: 98.3 [id number]/102-93% RA. Exam description: Tired, alert and nontoxic, [...] he could be done outpatient. 07/15/[address] research director [address]. Dwayne Garcia: Assessment right pleural effusion: Continue diuretic therapy, empiric antimicrobials, thoracentesis recommended, eventual right heart cath work and secondary work-up for pH outpatient basis. 07/15/2021 echocardiogram: LV size and LV SF WNL, EF 60 to 65%. RV normal size and RV SF EF. Left atrium moderately enlarged, right atrium mildly enlarged. MV: Moderate mitral annular calcification, 1-2+ LA. TV: Normal. AV: Diffuse aortic valve calcification. [...] of this encounter (statuses as of 05/05/2023) [facility]04-17-2023 History of Past illness Narrative* Problem Noted [...] care 07/20/2021 07/26/2022 Overview: Facility: [facility] Date of admission 07/14/2021 Date of discharge Prehospital work-up: Presented to 07/14/2021 to [facility] ED complaining of left-sided abdominal pain with multiple symptoms including cough, myalgias, nasal congestion, low dietary intake due to concerns that would aggravate stomach ache. Patient was exposed to Covid 2 weeks prior, unvaccinated. Vital signs: 98.3 A-[id number]/102-93% RA. Exam description: Tired, alert and nontoxic, [...] he could be done outpatient. 07/15/[address] research [address] Dwayne Garcia: Assessment right pleural effusion: Continue diuretic therapy, empiric antimicrobials, thoracentesis recommended, eventual right heart cath work and secondary work-up for pH outpatient basis. 07/15/2021 echocardiogram: LV size and LV SF WNL, EF 60 to 65%. RV normal size and RV SF EF. Left atrium moderately enlarged, right atrium mildly enlarged. MV: Moderate mitral annular calcification, 1-2+ LA. TV: Normal. AV: Diffuse aortic valve calcification. 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 Shortness of breath 09/16/2021 11/09/19 Acute respiratory failure 07/22/2021 Chronic passive congestion of liver 07/22/2021 11/08/2022 Cyst of kidney, acquired 07/22/202111/2022 Ischemia and infarction of kidney 07/22/2021 11/08/2022 Overview: Has seen Dr Calvin Leukocytosis 07/22/2021 11/08/2022 Encounter for support and co ordination of transition of care 07/20/2021 07/26/2022 Overview: Facility: [facility] Date of admission 07/14/2021 Date of discharge Prehospital work-up: Presented to 07/14/2021 to [facility] ED complaining of left-sided abdominal pain with multiple symptoms including cough, myalgias, nasal congestion, low dietary intake due to concerns that would aggravate stomach ache. Patient was exposed to Covid 2 weeks prior, unvaccinated. Vital signs: 98.3 [id number]/102-93% RA. Exam description: Tired, alert and nontoxic, [...] he could be done outpatient. 07/15/[address] research director [address] Dwayne Garcia: Assessment right pleural effusion: Continue diuretic therapy, empiric antimicrobials, thoracentesis recommended, eventual right heart cath work and secondary work-up for pH outpatient basis. 07/15/2021 echocardiogram: LV size and LV SF WNL, EF 60 to 65%. RV normal size and RV SF EF. Left atrium moderately enlarged, right atrium mildly enlarged. MV: Moderate mitral annular calcification, 1-2+ LA. TV: Normal. AV: Diffuse aortic valve calcification. [...] of this encounter (statuses as of 05/11/2023) [facility]04-17-2023 History of Past illness Narrative* Problem Noted [...] care 07/20/2021 07/26/2022 Overview: Facility: [facility] Date of admission 07/14/2021 Date of discharge Prehospital work-up: Presented to 07/14/2021 to [facility] ED complaining of left-sided abdominal pain with multiple symptoms including cough, myalgias, nasal congestion, low dietary intake due to concerns that would aggravate stomach ache. Patient was exposed to Covid 2 weeks prior, unvaccinated. Vital signs: 98.3 [id number]/102-93% RA. Exam description: Tired, alert and nontoxic, [...] he could be done outpatient. 07/15/[address] research director [address]. Dwayne Garcia: Assessment right pleural effusion: Continue diuretic therapy, empiric antimicrobials, thoracentesis recommended, eventual right heart cath work and secondary work-up for pH outpatient basis. 07/15/2021 echocardiogram: LV size and LV SF WNL, EF 60 to 65%. RV normal size and RV SF EF. Left atrium moderately enlarged, right atrium mildly enlarged. MV: Moderate mitral annular calcification, 1-2+ LA. TV: Normal. AV: Diffuse aortic valve calcification. 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 Shortness of breath 09/16/2021 11/09/19 Acute respiratory failure 07/22/2021 Chronic passive congestion of liver 07/22/2021 11/08/2022 Cyst of kidney, acquired 07/22/202111/2022 Ischemia and infarction of kidney 07/22/2021 11/08/2022 Overview: Has seen Dr Calvin Leukocytosis 07/22/2021 11/08/2022 Encounter for support and co ordination of transition of care 07/20/2021 07/26/2022 Overview: Facility: [facility] Date of admission 07/14/2021 Date of discharge Prehospital work-up: Presented to 07/14/2021 to [facility] ED complaining of left-sided abdominal pain with multiple symptoms including cough, myalgias, nasal congestion, low dietary intake due to concerns that would aggravate stomach ache. Patient was exposed to Covid 2 weeks prior, unvaccinated. Vital signs: 98.3 G-[id number]/102-93% RA. Exam description: Tired, alert and nontoxic, [...] he could be done outpatient. 07/15/[address] research director [address]. Dwayne Garcia: Assessment right pleural effusion: Continue diuretic therapy, empiric antimicrobials, thoracentesis recommended, eventual right heart cath work and secondary work-up for pH outpatient basis. 07/15/2021 echocardiogram: LV size and LV SF WNL, EF 60 to 65%. RV normal size and RV SF EF. Left atrium moderately enlarged, right atrium mildly enlarged. MV: Moderate mitral annular calcification, 1-2+ LA. TV: Normal. AV: Diffuse aortic valve calcification. [...] of this encounter (statuses as of 05/26/2023) [facility]04-17-2023 History of Past illness Narrative* Problem Noted [...] care 07/20/2021 07/26/2022 Overview: Facility: [facility] Date of admission 07/14/2021 Date of discharge Prehospital work-up: Presented to 07/14/2021 to [facility] ED complaining of left-sided abdominal pain with multiple symptoms including cough, myalgias, nasal congestion, low dietary intake due to concerns that would aggravate stomach ache. Patient was exposed to Covid 2 weeks prior, unvaccinated. Vital signs: 98.3 [id number]/102-93% RA. Exam description: Tired, alert and nontoxic, [...] he could be done outpatient. 07/15/[address] research director [address]. Dwayne Garcia: Assessment right pleural effusion: Continue diuretic therapy, empiric antimicrobials, thoracentesis recommended, eventual right heart cath work and secondary work-up for pH outpatient basis. 07/15/2021 echocardiogram: LV size and LV SF WNL, EF 60 to 65%. RV normal size and RV SF EF. Left atrium moderately enlarged, right atrium mildly enlarged. MV: Moderate mitral annular calcification, 1-2+ LA. TV: Normal. AV: Diffuse aortic valve calcification. 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 Shortness of breath 09/16/2021 11/09/19 Acute respiratory failure 07/22/2021 Chronic passive congestion of liver 07/22/2021 11/08/2022 Cyst of kidney, acquired 07/22/202111/2022 Ischemia and infarction of kidney 07/22/2021 11/08/2022 Overview: Has seen Dr Calvin Leukocytosis 07/22/2021 11/08/2022 Encounter for support and co ordination of transition of care 07/20/2021 07/26/2022 Overview: Facility: [facility] Date of admission 07/14/2021 Date of discharge Prehospital work-up: Presented to 07/14/2021 to [facility] ED complaining of left-sided abdominal pain with multiple symptoms including cough, myalgias, nasal congestion, low dietary intake due to concerns that would aggravate stomach ache. Patient was exposed to Covid 2 weeks prior, unvaccinated. Vital signs: 98.3 [id number]/102-93% RA. Exam description: Tired, alert and nontoxic, [...] he could be done outpatient. 07/15/2021 consultation agricultural research director Dr. Dwayne Garcia: Assessment right pleural effusion: Continue diuretic therapy, empiric antimicrobials, thoracentesis recommended, eventual right heart cath work and secondary work-up for pH outpatient basis. 07/15/2021 echocardiogram: LV size and LV SF WNL, EF 60 to 65%. RV normal size and RV SF EF. Left atrium moderately enlarged, right atrium mildly enlarged. MV: Moderate mitral annular calcification, 1-2+ LA. TV: Normal. AV: Diffuse aortic valve calcification. [...] as of this encounter (statuses as of 07/11/2023) [facility]04-17-20[facility] History of Past illness Narrative* Problem Noted [...] care 07/20/2021 07/26/2022 Overview: Facility: [facility] Date of admission 07/14/2021 Date of discharge Prehospital work-up: Presented to 07/14/2021 to [facility] ED complaining of left-sided abdominal pain with multiple symptoms including cough, myalgias, nasal congestion, low dietary intake due to concerns that would aggravate stomach ache. Patient was exposed to Covid 2 weeks prior, unvaccinated. Vital signs: 98.3 [id number]/102-93% RA. Exam description: Tired, alert and nontoxic, [...] he could be done outpatient. 07/15/2021 consultation agricultural research director Dr. Dwayne Garcia: Assessment right pleural effusion: Continue diuretic therapy, empiric antimicrobials, thoracentesis recommended, eventual right heart cath work and secondary work-up for pH outpatient basis. 07/15/2021 echocardiogram: LV size and LV SF WNL, EF 60 to 65%. RV normal size and RV SF EF. Left atrium moderately enlarged, right atrium mildly enlarged. MV: Moderate mitral annular calcification, 1-2+ LA. TV: Normal. AV: Diffuse aortic valve calcification. 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 Shortness of breath 09/16/2021 11/09/19 Acute respiratory failure 07/22/2021 Chronic passive congestion of liver 07/22/2021 11/08/2022 Cyst of kidney, acquired 07/22/202111/2022 Ischemia and infarction of kidney 07/22/2021 11/08/2022 Overview: Has seen Dr Calvin Leukocytosis 07/22/2021 11/08/2022 Encounter for support and co ordination of transition of care 07/20/2021 07/26/2022 Overview: Facility: [facility] Date of admission 07/14/2021 Date of discharge Prehospital work-up: Presented to 07/14/2021 to [facility] ED complaining of left-sided abdominal pain with multiple symptoms including cough, myalgias, nasal congestion, low dietary intake due to concerns that would aggravate stomach ache. Patient was exposed to Covid 2 weeks prior, unvaccinated. Vital signs: 98.3 [id number]/102-93% RA. Exam description: Tired, alert and nontoxic, [...] he could be done outpatient. 07/15/2021 consultation agricultural research director Dr. Dwayne Garcia: Assessment right pleural effusion: Continue diuretic therapy, empiric antimicrobials, thoracentesis recommended, eventual right heart cath work and secondary work-up for pH outpatient basis. 07/15/2021 echocardiogram: LV size and LV SF WNL, EF 60 to 65%. RV normal size and RV SF EF. Left atrium moderately enlarged, right atrium mildly enlarged. MV: Moderate mitral annular calcification, 1-2+ LA. TV: Normal. AV: Diffuse aortic valve calcification. [...] as of this encounter (statuses as of 07/25/2023) [facility]04-17-2023 History of Past illness Narrative* Problem Noted [...] care 07/20/2021 07/26/2022 Overview: Facility: [facility] Date of admission 07/14/2021 Date of discharge Prehospital work-up: Presented to 07/14/2021 to [facility] ED complaining of left-sided abdominal pain with multiple symptoms including cough, myalgias, nasal congestion, low dietary intake due to concerns that would aggravate stomach ache. Patient was exposed to Covid 2 weeks prior, unvaccinated. Vital signs: 98.3 [id number]/102-93% RA. Exam description: Tired, alert and nontoxic, [...] he could be done outpatient. 07/15/2021 consultation [address] research director [address]. Dwayne Garcia: Assessment right pleural effusion: Continue diuretic therapy, empiric antimicrobials, thoracentesis recommended, eventual right heart cath work and secondary work-up for pH outpatient basis. 07/15/2021 echocardiogram: LV size and LV SF WNL, EF 60 to 65%. RV normal size and RV SF EF. Left atrium moderately enlarged, right atrium mildly enlarged. MV: Moderate mitral annular calcification, 1-2+ LA. TV: Normal. AV: Diffuse aortic valve calcification. 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 Shortness of breath 09/16/2021 11/09/19 Acute respiratory failure 07/22/2021 Chronic passive congestion of liver 07/22/2021 11/08/2022 Cyst of kidney, acquired 07/22/202111/2022 Ischemia and infarction of kidney 07/22/2021 11/08/2022 Overview: Has seen Dr Calvin Leukocytosis 07/22/2021 11/08/2022 Encounter for support and co ordination of transition of care 07/20/2021 07/26/2022 Overview: Facility: [facility] Date of admission 07/14/2021 Date of discharge Prehospital work-up: Presented to 07/14/2021 to [facility] ED complaining of left-sided abdominal pain with multiple symptoms including cough, myalgias, nasal congestion, low dietary intake due to concerns that would aggravate stomach ache. Patient was exposed to Covid 2 weeks prior, unvaccinated. Vital signs: 98.3 [id number]/102-93% RA. Exam description: Tired, alert and nontoxic, [...] he could be done outpatient. 07/15/2021 consultation agricultural research director Dr. Dwayne Garcia: Assessment right pleural effusion: Continue diuretic therapy, empiric antimicrobials, thoracentesis recommended, eventual right heart cath work and secondary work-up for pH outpatient basis. 07/15/2021 echocardiogram: LV size and LV SF WNL, EF 60 to 65%. RV normal size and RV SF EF. Left atrium moderately enlarged, right atrium mildly enlarged. MV: Moderate mitral annular calcification, 1-2+ LA. TV: Normal. AV: Diffuse aortic valve calcification. [...] as of this encounter (statuses as of 08/03/2023) [facility]04-17-2023 History of Past illness Narrative* Problem Noted [...] care 07/20/2021 07/26/2022 Overview: Facility: [facility] Date of admission 07/14/2021 Date of discharge Prehospital work-up: Presented to 07/14/2021 to [facility] ED complaining of left-sided abdominal pain with multiple symptoms including cough, myalgias, nasal congestion, low dietary intake due to concerns that would aggravate stomach ache. Patient was exposed to Covid 2 weeks prior, unvaccinated. Vital signs: 98.3 [id number]/102-93% RA. Exam description: Tired, alert and nontoxic, [...] he could be done outpatient. 07/15/[address] research director [address]. Dwayne Garcia: Assessment right pleural effusion: Continue diuretic therapy, empiric antimicrobials, thoracentesis recommended, eventual right heart cath work and secondary work-up for pH outpatient basis. 07/15/2021 echocardiogram: LV size and LV SF WNL, EF 60 to 65%. RV normal size and RV SF EF. Left atrium moderately enlarged, right atrium mildly enlarged. MV: Moderate mitral annular calcification, 1-2+ LA. TV: Normal. AV: Diffuse aortic valve calcification. 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 Shortness of breath 09/16/2021 11/09/19 Acute respiratory failure 07/22/2021 Chronic passive congestion of liver 07/22/2021 11/08/2022 Cyst of kidney, acquired 07/22/202111/2022 Ischemia and infarction of kidney 07/22/2021 11/08/2022 Overview: Has seen Dr Calvin Leukocytosis 07/22/2021 11/08/2022 Encounter for support and co ordination of transition of care 07/20/2021 07/26/2022 Overview: Facility: [facility] Date of admission 07/14/2021 Date of discharge Prehospital work-up: Presented to 07/14/2021 to [facility] ED complaining of left-sided abdominal pain with multiple symptoms including cough, myalgias, nasal congestion, low dietary intake due to concerns that would aggravate stomach ache. Patient was exposed to Covid 2 weeks prior, unvaccinated. Vital signs: 98.3 [id number]/102-93% RA. Exam description: Tired, alert and nontoxic, [...] he could be done outpatient. 07/15/2021 consultation agricultural research director Dr. Dwayne Garcia: Assessment right pleural effusion: Continue diuretic therapy, empiric antimicrobials, thoracentesis recommended, eventual right heart cath work and secondary work-up for pH outpatient basis. 07/15/2021 echocardiogram: LV size and LV SF WNL, EF 60 to 65%. RV normal size and RV SF EF. Left atrium moderately enlarged, right atrium mildly enlarged. MV: Moderate mitral annular calcification, 1-2+ LA. TV: Normal. AV: Diffuse aortic valve calcification. [...] as of this encounter (statuses as of 08/16/2023) [facility]04-17-2023 History of Past illness Narrative* Problem Noted [...] care 07/20/2021 07/26/2022 Overview: Facility: [facility] Date of admission 07/14/2021 Date of discharge Prehospital work-up: Presented to 07/14/2021 to [facility] ED complaining of left-sided abdominal pain with multiple symptoms including cough, myalgias, nasal congestion, low dietary intake due to concerns that would aggravate stomach ache. Patient was exposed to Covid 2 weeks prior, unvaccinated. Vital signs: 98.3 [id number]/102-93% RA. Exam description: Tired, alert and nontoxic, [...] he could be done outpatient. 07/15/[address] research director [address]. Dwayne Garcia: Assessment right pleural effusion: Continue diuretic therapy, empiric antimicrobials, thoracentesis recommended, eventual right heart cath work and secondary work-up for pH outpatient basis. 07/15/2021 echocardiogram: LV size and LV SF WNL, EF 60 to 65%. RV normal size and RV SF EF. Left atrium moderately enlarged, right atrium mildly enlarged. MV: Moderate mitral annular calcification, 1-2+ LA. TV: Normal. AV: Diffuse aortic valve calcification. 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 Shortness of breath 09/16/2021 11/09/19 Acute respiratory failure 07/22/2021 Chronic passive congestion of liver 07/22/2021 11/08/2022 Cyst of kidney, acquired 07/22/202111/2022 Ischemia and infarction of kidney 07/22/2021 11/08/2022 Overview: Has seen Dr Calvin Leukocytosis 07/22/2021 11/08/2022 Encounter for support and co ordination of transition of care 07/20/2021 07/26/2022 Overview: Facility: [facility] Date of admission 07/14/2021 Date of discharge Prehospital work-up: Presented to 07/14/2021 to [facility] ED complaining of left-sided abdominal pain with multiple symptoms including cough, myalgias, nasal congestion, low dietary intake due to concerns that would aggravate stomach ache. Patient was exposed to Covid 2 weeks prior, unvaccinated. Vital signs: 98.3 [id number]/102-93% RA. Exam description: Tired, alert and nontoxic, [...] he could be done outpatient. 07/15/20[address] consultation agricultural research director Dr. Dwayne Garcia: Assessment right pleural effusion: Continue diuretic therapy, empiric antimicrobials, thoracentesis recommended, eventual right heart cath work and secondary work-up for pH outpatient basis. 07/15/2021 echocardiogram: LV size and LV SF WNL, EF 60 to 65%. RV normal size and RV SF EF. Left atrium moderately enlarged, right atrium mildly enlarged. MV: Moderate mitral annular calcification, 1-2+ LA. TV: Normal. AV: Diffuse aortic valve calcification. [...] as of this encounter (statuses as of 08/29/2023) [facility]04-17-2023 History of Past illness Narrative* Problem Noted [...] care 07/20/2021 07/26/2022 Overview: Facility: [facility] Date of admission 07/14/2021 Date of discharge Prehospital work-up: Presented to 07/14/2021 to [facility] ED complaining of left-sided abdominal pain with multiple symptoms including cough, myalgias, nasal congestion, low dietary intake due to concerns that would aggravate stomach ache. Patient was exposed to Covid 2 weeks prior, unvaccinated. Vital signs: 98.3 [id number]/102-93% RA. Exam description: Tired, alert and nontoxic, [...] he could be done outpatient. 07/15/[address] agricultural research director Dr. Dwayne Garcia: Assessment right pleural effusion: Continue diuretic therapy, empiric antimicrobials, thoracentesis recommended, eventual right heart cath work and secondary work-up for pH outpatient basis. 07/15/2021 echocardiogram: LV size and LV SF WNL, EF 60 to 65%. RV normal size and RV SF EF. Left atrium moderately enlarged, right atrium mildly enlarged. MV: Moderate mitral annular calcification, 1-2+ LA. TV: Normal. AV: Diffuse aortic valve calcification. 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 Shortness of breath 09/16/2021 11/09/19 Acute respiratory failure 07/22/2021 Chronic passive congestion of liver 07/22/2021 11/08/2022 Cyst of kidney, acquired 07/22/202111/2022 Ischemia and infarction of kidney 07/22/2021 11/08/2022 Overview: Has seen Dr Calvin Leukocytosis 07/22/2021 11/08/2022 Encounter for support and co ordination of transition of care 07/20/2021 07/26/2022 Overview: Facility: [facility] Date of admission 07/14/2021 Date of discharge Prehospital work-up: Presented to 07/14/2021 to [facility] ED complaining of left-sided abdominal pain with multiple symptoms including cough, myalgias, nasal congestion, low dietary intake due to concerns that would aggravate stomach ache. Patient was exposed to Covid 2 weeks prior, unvaccinated. Vital signs: 98.3 [id number]/102-93% RA. Exam description: Tired, alert and nontoxic, [...] he could be done outpatient. 07/15/2021 consultation agricultural research director Dr. Dwayne Garcia: Assessment right pleural effusion: Continue diuretic therapy, empiric antimicrobials, thoracentesis recommended, eventual right heart cath work and secondary work-up for pH outpatient basis. 07/15/2021 echocardiogram: LV size and LV SF WNL, EF 60 to 65%. RV normal size and RV SF EF. Left atrium moderately enlarged, right atrium mildly enlarged. MV: Moderate mitral annular calcification, 1-2+ LA. TV: Normal. AV: Diffuse aortic valve calcification. [...] as of this encounter (statuses as of 09/22/2023) [facility]04-03-2023 History of Present illness Narrative* Apoorva Palma RDMS - 09/05/2022 1:45 PM EDT Radiology Service Progress Note PATIENT NAME: Libra Ceja DATE OF SERVICE: September 05, 2022 [...] 05, 2022 2:26 PM documented in this encounterUniversity [facility]als [facility]03-30-[facility]23 History of Present illness Narrative* Christopher Bonilla MD - 09/01/2022 2:43 PM EDT [...] FORTICAL) 200 unit/actuation nasal spray Use 1 [place] in the nose once daily. Back Brace [...] mouth twice daily. WALKER ROLLATOR SEAT WITH 6" WHEELS - RED Daily use R26.81 Gait [...] rash. PAST MEDICAL HISTORY Diagnosis Date A-fib ([facility]) Class 1 congestive heart failure, unspecified failure chronicity, systolic ([facility]) 11/21/2019 Dysphagia, unspecified(787.20) Esophageal reflux Esophagitis, unspecified Marfan's syndrome Moderate mitral regurgitation 06/18/2021 04/27/21 Echo at [facility]. Pleural effusion, right 05/05/2020 CXR 11/18/19 and [...] 573.8, ICD10: R16.0 - US ABDOMEN COMPLETE Christopher Bonilla MD documented in this encounterUniversity Hospitals [facility]03-27-2023 Miscellaneous Notes* Addendum Note - Christopher Bonilla MD - 08/29/2022 2:11 PM EDTAddended by: CHRISTOPHER BONILLA on: 08/29/2022 02:11 PM Modules accepted: Orders documented in this encounterUniversity Hospitals [facility]03-27-2023 History of Present illness Narrative* Cadence Bustillo [...] try the gabapentin. Please send to [facility] for her. * Christopher Bonilla MD - 08/29/2022 1:21 PM EDT Her miacalcin should also help with pain, let her know we can add something like gabapentin if she Is willing. Let me know * Concha Rocha RN - 08/29/2022 11:42 AM EDT [...] rated a 10/10 and describes it as "tightness". Pt states she has been taking tylenol [...] like to speak with a social work steamfitter apprentice to help give you support for any [...] you up for automated weekly questionnaires through [employer]. This is an easy way for us [...] PtOutreach and End outreach. documented in this encounterUniversity Hospitals [facility] Center03-21-2023 History of Present illness Narrative* Christopher Bonilla MD - 08/23/2022 2:24 PM EDT agree * Yanely Posadas RN - 08/23/2022 1:54 PM EDT patient had inr completed at [facility] patients inr is 2.9 (patients inr range [...] for follow up INR. documented in this encounterUniversity Hospitals [facility] Center03-17-2023 Miscellaneous Notes* Telephone Encounter - Ely Strauss - 08/19/2022 2:27 PM EDT Spoke to pt and gave number to call to scheduled pain management. * Telephone Encounter - Debbie Long Ma - 08/19/2022 1:14 PM EDT Patient notified of provider message. Please help pt set up consult. Debbie Long Ma * Telephone Encounter - Christopher Bonilla MD - 08/19/2022 1:04 PM EDT [...] picked up the back brace from [facility] yet, asking if this is ok to wear. * Telephone Encounter - Christopher Bonilla MD - 08/19/2022 12:28 PM EDT [...] advise, Deana Coleman RN documented in this encounterUniversity Hospitals [facility] Center03-16-2023 History of Present illness Narrative* Debbie Solano, RT(R) - 08/18/2022 11:20 AM EDT Radiology Service Progress Note PATIENT NAME: Libra Ceja DATE OF SERVICE: August 18, 2022 [...] 18, 2022 12:02 PM documented in this encounterUniversity Hospitals [facility] Center02-23-2023 History of Present illness Narrative* Christopher Bonilla MD - 07/28/2022 1:46 PM EST [...] FORTICAL) 200 unit/actuation nasal spray Use 1 [place] in the nose once daily. omeprazole (PRILOSEC) 40 mg capsule Take 1 capsule by mouth once daily. metoprolol tartrate, short acting, (LOPRESSOR) 50 mg tablet Take 1 tablet by mouth twice daily. warfarin (COUMADIN) 4 mg tablet 4 mg on , W, , 2 mg all other days. [...] daily as needed. WALKER ROLLATOR SEAT WITH 6" WHEELS - RED Daily use R26.81 Gait instability (primary encounter diagnosis) No current facility-administered medications for this visit. ALLERGIES: ALLERGIES Allergen Reactions Crestor [Rosuvastat* Other: See Comments Myalgia. Ibuprofen Other: See Comments dizzy Prevnar 13 [Pneumoc* Rash Presumed reaction to Prevnar. Latex Rash Local contact rash. PAST MEDICAL HISTORY Diagnosis Date A-fib ([facility]) Class 1 congestive heart failure, unspecified failure chronicity, systolic ([facility]) 11/21/2019 Dysphagia, unspecified(787.20) Esophageal reflux Esophagitis, unspecified Marfan's syndrome Moderate mitral regurgitation 06/18/2021 04/27/21 Echo at [facility]. Pleural effusion, right 05/05/2020 CXR 11/18/19 and [...] ICD9: 518.83, 799.02, ICD10: J96.11 - stable. Christopher Bonilla MD documented in this encounterUniversity Hospitals Cleveland Medical Center02-16-2023 History of Present illness Narrative* Monroe Santoyo MD - 07/21/2022 3:25 PM EST No changes in coumadin dosing needed. Agree with next INR check. * Yanely Posadas RN - 07/21/2022 2:37 PM EST patient had inr completed at [facility] patients inr is 2.4 (patients inr range [...] for follow up INR. documented in this encounterUniversity Hospitals Cleveland Medical Center02-02-2023 History of Present illness Narrative* Yanely Posadas RN - 07/07/2022 2:03 PM EST patient had inr completed at [facility] patients inr is 1.8 (patients inr range [...] by the missed doses documented in this encounterUniversity Hospitals [facility] Medical Center01-30-2023 Miscellaneous Notes* Telephone Encounter - Isaiah Skinner LPN - 07/04/2022 2:31 PM EST Pt notified. Isaiah Skinner LPN * Telephone Encounter - Christopher Bonilla MD - 07/04/2022 2:02 PM EST ok * Telephone Encounter - Airam Ayon RN - 07/04/2022 1:41 PM EST Patient calling to ask if it's okay to have her INR done on 07/07 as previously scheduled instead of today or tomorrow? She resumed Coumadin after holding for thyroid biopsy per TE 06/29/22. Airam Ayon, RN documented in this encounterUniversity Hospitals Cleveland Medical Center01-30-2023 History of Present illness Narrative* Amita Jimmy - 07/04/2022 12:36 PM EST POPULATION HEALTH NAVIGATION OUTREACH Action/ 1st call, [...] DEPRESSION ASSESSMENT due on 06/05/2022 Navigation Signature: Amita Nolanlopez July 04, 2022 12:36 PM documented in this encounterUniversity Hospitals Cleveland Medical Center01-26-2023 Miscellaneous Notes* Telephone Encounter - Debbie Long Ma - 06/30/2022 9:37 AM EST Patient instructed of dosage with teach back method. Verbalizes understanding. * Telephone Encounter - Cadence Bustillo LPN - 06/29/2022 5:10 PM EST Tracker updated. Attempted to reach patient and no answer no voicemail. * Telephone Encounter - Christopher Bonilla MD - 06/29/2022 4:59 PM EST [...] Please call and advise. documented in this encounterUniversity Hospitals Cleveland Medical Center01-25-2023 History of Present illness Narrative* Shanta Logan APRN.EXTERNAL GRINDER TOOL - 06/29/2022 3:59 PM EST Images from [...] history is provided by the patient. No foreign language teacher was used. Review of Systems Constitutional: Negative. Skin: Negative. Objective Physical Exam Constitutional: Appearance: Normal appearance. Pulmonary: Effort: Pulmonary effort is normal. Musculoskeletal: Arms: Comments: Patient is tender in the middle the purple area no swelling bruising noted. Neurological: Mental Status: She is alert. PAST MEDICAL HISTORY Diagnosis Date A-fib ([facility]) Class 1 congestive heart failure, unspecified failure chronicity, systolic ([facility]) 11/21/2019 Dysphagia, unspecified(787.20) Esophageal reflux Esophagitis, unspecified Marfan's syndrome Moderate mitral regurgitation 06/18/2021 04/27/21 Echo at [facility]. Pleural effusion, right 05/05/2020 CXR 11/18/19 and [...] Crestor [Rosuvastatin Calcium], Ibuprofen, Prevnar 13 [Pneumoc 13-Chely Conj-Dip Cr(Pf)], and Latex MEDICATIONS omeprazole (PRILOSEC) [...] mouth twice daily. WALKER ROLLATOR SEAT WITH 6" WHEELS - RED Daily use R26.81 Gait [...] plan. Shanta Logan APRN.TRICIA documented in this encounterUniversity Hospitals Cleveland Medical Center01-17-2023 History of Present illness Narrative* Elisabeth Shannon RN - 06/21/2022 11:52 AM EST INSIGHT [facility] TELEPHONIC OUTREACH Provider Action/FYI: Patient reports she [...] like to speak with a social work steamfitter apprentice to help give you support for any [...] you up for automated weekly questionnaires through [employer]. This is an easy way for us [...] PtOutreach and End outreach. documented in this encounterUniversity Hospitals Cleveland Medical Center01-13-2023 Miscellaneous Notes* Telephone Encounter - Harley Ordaz LPN - 06/17/2022 2:36 PM EST Patient calling started with symptoms few days ago, dry cough, congestion, sneezing. No appt available with PCP or CLICKING MACHINE OPERATOR this afternoon. Advised patient to go to [facility] care for evaluation and gave herhours of operation. documented in this encounterUniversity Hospitals Cleveland Medical Center12-30-2022 Miscellaneous Notes* Telephone Encounter - Usman Dunn RN - 06/03/2022 2:46 PM EST Faxed general surgery referral and US thyroid results to Dr. Abimael Evans, [facility], per patient request. . Reports Dr. Saab's office cancelled the appt with him b/c he will be out [facility]. Reports Dr. Maxine Evans agreeable to see her. * Telephone Encounter - Yolis Tran RN - 06/02/2022 10:22 AM EST Pt called and is notified of providers message and instructions. Pt voices understanding. States she will call back to reschedule appointment. Yolis Tran RN * Telephone Encounter - Christopher Bonilla MD - 06/02/2022 8:05 AM EST Her appt with surgery for her thyroid nodule had been cancelled. Please make sure she is rescheduled. * Telephone Encounter - Christopher Bonilla MD - 06/02/2022 8:05 AM EST [...] support you in caring for your patient. [facility] is committed to providing safe care with [...] of the clinical team. documented in this encounterUniversity Hospitals Cleveland Medical Center12-22-2022 History of Present illness Narrative* Christopher Bonilla MD - 05/26/2022 2:55 PM EST agree * Yanely Posadas RN - 05/26/2022 2:30 PM EST patient had inr completed at [facility] patients inr is 2.8 (patients inr range [...] reading since dose change documented in this encounterUniversity Hospitals Cleveland Medical Center12-17-2022 Miscellaneous Notes* Telephone Encounter - Yolis Tran [...] surgery. Please help schedule. documented in this encounterUniversity Hospitals Cleveland Medical Center12-15-2022 History of Present illness Narrative* Yanely Posadas RN - 05/19/2022 3:15 PM EST PATIENT NOTIFIED OF INFORMATION * Eddie Nunez MD - 05/19/2022 2:52 PM EST INR slightly high. Decrease dose to 4 mg Mon, Tues and 2 mg all other days. Recheck in 1 week. * Yanely Posadas RN - 05/19/2022 2:34 PM EST patient had inr completed at [facility] patients inr is 3.2 (patients inr range [...] up inr on 05/26/22 documented in this encounterUniversity Hospitals Cleveland Medical Center12-14-2022 History of Present illness Narrative* Elisabeth Shannon RN - 05/18/2022 11:15 AM EST INSIGHT [facility] TELEPHONIC OUTREACH Provider Action/FYI: Patient seen at [facility] yesterday for rib pain from a [...] like to speak with a social work steamfitter apprentice to help give you support for any [...] you up for automated weekly questionnaires through [employer]. This is an easy way for us [...] Track PtOutreach and End outreach. * Elisabeth Shannon RN - 05/18/2022 9:53 AM EST INSIGHT [...] Pt Outreach. End outreach documented in this encounterUniversity Hospitals Cleveland Medical Center12-13-2022 Instructions* Patient Instructions* Shannon Chiu APRN.CNP - 05/17/2022 3:25 PM EST Warm compresses Encourage deep breathing. Tylenol as needed for pain Follow up with PCP as needed documented in this encounterUniversity Hospitals Cleveland Medical Center12-13-2022 History of Present illness Narrative* Ni Irene RT(R) - 05/17/2022 3:00 PM EST Radiology Service Progress Note PATIENT NAME: Libra Ceja DATE OF SERVICE: May 17, 2022 TIME: 2:51 PM PATIENT IDENTITY VERIFICATION COMPLETED USING TWO [...] IMPLANT DATA REVIEWED: Not Applicable RADIOLOGY DEPARTMENT: General X-ray: Exam(s) Completed: Rib X-Ray: Left PERIPHERAL IV DATA: Not applicable SIGNED BY: RT Mellisa(R) May 17, 2022 2:51 PM documented in this encounterUniversity Hospitals Cleveland Medical Center12-13-2022 History of Present illness Narrative* Shannon Chiu APRN.EXTERNAL GRINDER TOOL - 05/17/2022 2:38 PM EST Images from the original note were not included. Subjective The history is provided by the patient. No foreign language teacher was used. HPI Libra Ceja is a 76 year old female [...] No PAST MEDICAL HISTORY Diagnosis Date A-fib (HCC) Class 1 congestive heart failure, unspecified failure chronicity, systolic (HCC) 11/21/2019 Dysphagia, unspecified(787.20) Esophageal reflux Esophagitis, unspecified Marfan's syndrome Moderate mitral regurgitation 06/18/2021 04/27/21 Echo at [facility]. Pleural effusion, right 05/05/2020 CXR 11/18/19 and 05/04/20. Unspecified essential hypertension I have confirmed and edited as necessary, the [facility] Review of Systems Constitutional: Negative for chills [...] study. Interpreted by : MD Shannon WHALEN APRN.EXTERNAL GRINDER TOOL documented in this encounterUniversity Hospitals Cleveland Medical Center12-13-2022 History of Present illness Narrative* Apoorva Palma RDMS - 05/17/2022 1:45 PM EST Radiology Service Progress Note PATIENT NAME: Libra Ceja DATE OF SERVICE: May 17, 2022 [...] 17, 2022 2:04 PM documented in this encounterUniversity Hospitals Cleveland Medical Center11-22-2022 History of Present illness Narrative* Elisabeth Shannon RN - 04/26/2022 9:13 AM EST INSIGHT [...] like to speak with a social work steamfitter apprentice to help give you support for any [...] you up for automated weekly questionnaires through [employer]. This is an easy way for us [...] PtOutreach and End outreach. documented in this encounterUniversity Hospitals Cleveland Medical Center11-16-2022 Miscellaneous Notes* Telephone Encounter - Alma Delia Doyle RN - 04/20/2022 9:01 AM EST Patient notified of message below. Alma Delia Doyle RN * Telephone Encounter - Christopher Bonilla MD - 04/20/2022 8:37 AM EST Anemia is better. Kidney function slightly reduced. Cholesterol up slightly. Watch cholesterol in the diet. Recheck bmp in two weeks. documented in this encounterUniversity Hospitals Cleveland Medical Center11-15-2022 Miscellaneous Notes* Telephone Encounter - Deana Coleman RN - 04/19/2022 4:22 PM EST Patient called and notified to keep coumadin dose the same and recheck in one month. Patient voicedunderstanding. Deana Coleman RN * Telephone Encounter - Christopher Bonilla MD - 04/19/2022 4:11 PM EST Same. Recheck one month * Telephone Encounter - Mimi Feldman LPN - 04/19/2022 3:54 PM EST Last INR: PT INR 2.0 04/19/2022 Current dose of coumadin is: 4 mg MW, 2mg all other days. Previous INR (date and result): 2.1 03/29/2022 Additional Clinical Information or narrative: no Protime 22.1 documented in this encounterUniversity Hospitals Cleveland Medical Center11-15-2022 History of Past illness Narrative* Problem Noted Date Resolved Date Renal infarct 04/19/2022 07/26/2022 Overview: Has seen Dr. Chaney. Needs to just follow up prn. Pleural effusion 01/31/2022 04/19/2022 Encounter for support and coordination of transi tion of care 07/20/2021 07/26/2022 Overview: Facility: [facility] Date of admission 07/14/2021 Date of discharge Prehospital work-up: Presented to 07/14/2021 to [facility] ED complaining of left-sided abdominal pain with multiple symptoms including cough, myalgias, nasal congestion, low dietary intake due to concerns that would aggravate stomach ache. Patient was exposed to Covid 2 weeks prior, unvaccinated. Vital signs: 98.3 [id number]/102-93% RA. Exam description: Tired, alert and nontoxic, [...] he could be done outpatient. 07/15/20[address] consultation [address] research director [address]. Dwayne Garcia: Assessment right pleural effusion: Continue diuretic therapy, empiric antimicrobials, thoracentesis recommended, eventual right heart cath work and secondary work-up for pH outpatient basis. 07/15/2021 echocardiogram: LV size and LV SF WNL, EF 60 to 65%. RV normal size and RV SF EF. Left atrium moderately enlarged, right atrium mildly enlarged. MV: Moderate mitral annular calcification, 1-2+ LA. TV: Normal. AV: Diffuse aortic valve calcification. [...] of this encounter (statuses as of 07/28/2022) [facility]11-15-2022 History of Past illness Narrative* Problem Noted Date Resolved Date Renal infarct 04/19/2022 07/26/2022 Overview: Has seen Dr. Chaney. Needs to just follow up prn. Pleural effusion 01/31/2022 04/19/2022 Encounter for support and coordination of transi tion of care 07/20/2021 07/26/2022 Overview: Facility: [facility] Date of admission 07/14/2021 Date of discharge Prehospital work-up: Presented to 07/14/2021 to [facility] ED complaining of left-sided abdominal pain with multiple symptoms including cough, myalgias, nasal congestion, low dietary intake due to concerns that would aggravate stomach ache. Patient was exposed to Covid 2 weeks prior, unvaccinated. Vital signs: 98.3 [id number]/102-93% RA. Exam description: Tired, alert and nontoxic, [...] he could be done outpatient. 07/15/2021 consultation agricultural research director Dr. Dwayne Garcia: Assessment right pleural effusion: Continue diuretic therapy, empiric antimicrobials, thoracentesis recommended, eventual right heart cath work and secondary work-up for pH outpatient basis. 07/15/2021 echocardiogram: LV size and LV SF WNL, EF 60 to 65%. RV normal size and RV SF EF. Left atrium moderately enlarged, right atrium mildly enlarged. MV: Moderate mitral annular calcification, 1-2+ LA. TV: Normal. AV: Diffuse aortic valve calcification. [...] of this encounter (statuses as of 08/19/2022) [facility]11-15-2022 History of Past illness Narrative* Problem Noted Date Resolved Date Renal infarct 04/19/2022 07/26/2022 Overview: Has seen Dr. Chaney. Needs to just follow up prn. Pleural effusion 01/31/2022 04/19/2022 Encounter for support and coordination of transi tion of care 07/20/2021 07/26/2022 Overview: Facility: [facility] Date of admission 07/14/2021 Date of discharge Prehospital work-up: Presented to 07/14/2021 to [facility] ED complaining of left-sided abdominal pain with multiple symptoms including cough, myalgias, nasal congestion, low dietary intake due to concerns that would aggravate stomach ache. Patient was exposed to Covid 2 weeks prior, unvaccinated. Vital signs: 98.3 [id number]/102-93% RA. Exam description: Tired, alert and nontoxic, [...] he could be done outpatient. 07/15/2021 consultation agricultural research director Dr. Dwayne Garcia: Assessment right pleural effusion: Continue diuretic therapy, empiric antimicrobials, thoracentesis recommended, eventual right heart cath work and secondary work-up for pH outpatient basis. 07/15/2021 echocardiogram: LV size and LV SF WNL, EF 60 to 65%. RV normal size and RV SF EF. Left atrium moderately enlarged, right atrium mildly enlarged. MV: Moderate mitral annular calcification, 1-2+ LA. TV: Normal. AV: Diffuse aortic valve calcification. [...] of this encounter (statuses as of 08/23/2022) [facility]11-15-2022 History of Past illness Narrative* Problem Noted Date Resolved Date Renal infarct 04/19/2022 07/26/2022 Overview: Has seen Dr. Chaney. Needs to just follow up prn. Pleural effusion 01/31/2022 04/19/2022 Encounter for support and coordination of transi tion of care 07/20/2021 07/26/2022 Overview: Facility: [facility] Date of admission 07/14/2021 Date of discharge Prehospital work-up: Presented to 07/14/2021 to [facility] ED complaining of left-sided abdominal pain with multiple symptoms including cough, myalgias, nasal congestion, low dietary intake due to concerns that would aggravate stomach ache. Patient was exposed to Covid 2 weeks prior, unvaccinated. Vital signs: 98.3 [id number]/102-93% RA. Exam description: Tired, alert and nontoxic, [...] he could be done outpatient. 07/15/[address] research director [address]. Dwayne Garcia: Assessment right pleural effusion: Continue diuretic therapy, empiric antimicrobials, thoracentesis recommended, eventual right heart cath work and secondary work-up for pH outpatient basis. 07/15/2021 echocardiogram: LV size and LV SF WNL, EF 60 to 65%. RV normal size and RV SF EF. Left atrium moderately enlarged, right atrium mildly enlarged. MV: Moderate mitral annular calcification, 1-2+ LA. TV: Normal. AV: Diffuse aortic valve calcification. [...] of this encounter (statuses as of 08/29/2022) [facility]11-15-2022 History of Past illness Narrative* Problem Noted Date Resolved Date Renal infarct 04/19/2022 07/26/2022 Overview: Has seen Dr. Chaney. Needs to just follow up prn. Pleural effusion 01/31/2022 04/19/2022 Encounter for support and coordination of transi tion of care 07/20/2021 07/26/2022 Overview: Facility: [facility] Date of admission 07/14/2021 Date of discharge Prehospital work-up: Presented to 07/14/2021 to [facility] ED complaining of left-sided abdominal pain with multiple symptoms including cough, myalgias, nasal congestion, low dietary intake due to concerns that would aggravate stomach ache. Patient was exposed to Covid 2 weeks prior, unvaccinated. Vital signs: 98.3 [id number]/102-93% RA. Exam description: Tired, alert and nontoxic, [...] he could be done outpatient. 07/15/20[address] consultation agricultural research director [address]. Dwayne Garcia: Assessment right pleural effusion: Continue diuretic therapy, empiric antimicrobials, thoracentesis recommended, eventual right heart cath work and secondary work-up for pH outpatient basis. 07/15/2021 echocardiogram: LV size and LV SF WNL, EF 60 to 65%. RV normal size and RV SF EF. Left atrium moderately enlarged, right atrium mildly enlarged. MV: Moderate mitral annular calcification, 1-2+ LA. TV: Normal. AV: Diffuse aortic valve calcification. [...] of this encounter (statuses as of 09/01/2022) [facility]11-[facility]-20[facility] History of Past illness Narrative* Problem Noted Date Resolved Date Renal infarct 04/19/2022 07/26/2022 Overview: Has seen Dr. Chaney. Needs to just follow up prn. Pleural effusion 01/31/2022 04/19/2022 Encounter for support and coordination of transi tion of care 07/20/2021 07/26/2022 Overview: Facility: [facility] Date of admission 07/14/2021 Date of discharge Prehospital work-up: Presented to 07/14/2021 to [facility] ED complaining of left-sided abdominal pain with multiple symptoms including cough, myalgias, nasal congestion, low dietary intake due to concerns that would aggravate stomach ache. Patient was exposed to Covid 2 weeks prior, unvaccinated. Vital signs: 98.3 [id number]/102-93% RA. Exam description: Tired, alert and nontoxic, [...] he could be done outpatient. 07/15/[address] research [address]. Dwayne Garcia: Assessment right pleural effusion: Continue diuretic therapy, empiric antimicrobials, thoracentesis recommended, eventual right heart cath work and secondary work-up for pH outpatient basis. 07/15/2021 echocardiogram: LV size and LV SF WNL, EF 60 to 65%. RV normal size and RV SF EF. Left atrium moderately enlarged, right atrium mildly enlarged. MV: Moderate mitral annular calcification, 1-2+ LA. TV: Normal. AV: Diffuse aortic valve calcification. [...] of this encounter (statuses as of 09/19/2022) [facility]11-[facility] History of Past illness Narrative* Problem Noted Date Resolved Date Renal infarct 04/19/2022 07/26/2022 Overview: Has seen Dr. Chaney. Needs to just follow up prn. Pleural effusion 01/31/2022 04/19/2022 Encounter for support and coordination of transi tion of care 07/20/2021 07/26/2022 Overview: Facility: [facility] Date of admission 07/14/2021 Date of discharge Prehospital work-up: Presented to 07/14/2021 to [facility] ED complaining of left-sided abdominal pain with multiple symptoms including cough, myalgias, nasal congestion, low dietary intake due to concerns that would aggravate stomach ache. Patient was exposed to Covid 2 weeks prior, unvaccinated. Vital signs: 98.3 [id number]/102-93% RA. Exam description: Tired, alert and nontoxic, [...] CCA without intubation 07/14/[address] Malika Jani neurologist: increasing left upper quadrant and flank pain, atypical left renal cyst. Assessment and plan: Right renal cyst, renal infarction: No plans for intervention of 3 cm suspicious lesion during this admission, felt he could be done outpatient. 07/15/20[address] consultation [address] research [address]. Dwayne Garcia: Assessment right pleural effusion: Continue diuretic therapy, empiric antimicrobials, thoracentesis recommended, eventual right heart cath work and secondary work-up for pH outpatient basis. 07/15/2021 echocardiogram: LV size and LV SF WNL, EF 60 to 65%. RV normal size and RV SF EF. Left atrium moderately enlarged, right atrium mildly enlarged. MV: Moderate mitral annular calcification, 1-2+ LA. TV: Normal. AV: Diffuse aortic valve calcification. [...] of this encounter (statuses as of 09/22/2022) [facility] of Past illness Narrative* Problem Noted Date Resolved Date Renal infarct 04/19/2022 07/26/2022 Overview: Has seen Dr. Chaney. Needs to just follow up prn. Pleural effusion 01/31/2022 04/19/2022 Encounter for support and coordination of transi tion of care 07/20/2021 07/26/2022 Overview: Facility: [facility] Date of admission 07/14/2021 Date of discharge Prehospital work-up: Presented to 07/14/2021 to [facility] ED complaining of left-sided abdominal pain with multiple symptoms including cough, myalgias, nasal congestion, low dietary intake due to concerns that would aggravate stomach ache. Patient was exposed to Covid 2 weeks prior, unvaccinated. Vital signs: 98.3 [id number]/102-93% RA. Exam description: Tired, alert and nontoxic, [...] he could be done outpatient. 07/15/[address] Dwayne Garcia: Assessment right pleural effusion: Continue diuretic therapy, empiric antimicrobials, thoracentesis recommended, eventual right heart cath work and secondary work-up for pH outpatient basis. 07/15/2021 echocardiogram: LV size and LV SF WNL, EF 60 to 65%. RV normal size and RV SF EF. Left atrium moderately enlarged, right atrium mildly enlarged. MV: Moderate mitral annular calcification, 1-2+ LA. TV: Normal. AV: Diffuse aortic valve calcification. [...] of this encounter (statuses as of 09/22/2022) [facility] of Past illness Narrative* Problem Noted Date Resolved Date Renal infarct 04/19/2022 07/26/2022 Overview: Has seen Dr. Chaney. Needs to just follow up prn. Pleural effusion 01/31/2022 04/19/2022 Encounter for support and coordination of transi tion of care 07/20/2021 07/26/2022 Overview: Facility: [facility] Date of admission 07/14/2021 Date of discharge Prehospital work-up: Presented to 07/14/2021 to [facility] ED complaining of left-sided abdominal pain with multiple symptoms including cough, myalgias, nasal congestion, low dietary intake due to concerns that would aggravate stomach ache. Patient was exposed to Covid 2 weeks prior, unvaccinated. Vital signs: 98.3 [id number]/102-93% RA. Exam description: Tired, alert and nontoxic, [...] he could be done outpatient. 07/15/[address] research [address]. Dwayne Garcia: Assessment right pleural effusion: Continue diuretic therapy, empiric antimicrobials, thoracentesis recommended, eventual right heart cath work and secondary work-up for pH outpatient basis. 07/15/2021 echocardiogram: LV size and LV SF WNL, EF 60 to 65%. RV normal size and RV SF EF. Left atrium moderately enlarged, right atrium mildly enlarged. MV: Moderate mitral annular calcification, 1-2+ LA. TV: Normal. AV: Diffuse aortic valve calcification. [...] of this encounter (statuses as of 09/23/2022) [facility] History of Past illness Narrative* Problem Noted Date Resolved Date Renal infarct 04/19/2022 07/26/2022 Overview: Has seen Dr. Chaney. Needs to just follow up prn. Pleural effusion 01/31/2022 04/19/2022 Encounter for support and coordination of transi tion of care 07/20/2021 07/26/2022 Overview: Facility: [facility] Date of admission 07/14/2021 Date of discharge Prehospital work-up: Presented to 07/14/2021 to [facility] ED complaining of left-sided abdominal pain with multiple symptoms including cough, myalgias, nasal congestion, low dietary intake due to concerns that would aggravate stomach ache. Patient was exposed to Covid 2 weeks prior, unvaccinated. Vital signs: 98.3 [id number]/102-93% RA. Exam description: Tired, alert and nontoxic, [...] he could be done outpatient. 07/15/[address] Dwayne Garcia: Assessment right pleural effusion: Continue diuretic therapy, empiric antimicrobials, thoracentesis recommended, eventual right heart cath work and secondary work-up for pH outpatient basis. 07/15/2021 echocardiogram: LV size and LV SF WNL, EF 60 to 65%. RV normal size and RV SF EF. Left atrium moderately enlarged, right atrium mildly enlarged. MV: Moderate mitral annular calcification, 1-2+ LA. TV: Normal. AV: Diffuse aortic valve calcification. [...] of this encounter (statuses as of 09/23/2022) [facility] of Past illness Narrative* Problem Noted Date Resolved Date Renal infarct 04/19/2022 07/26/2022 Overview: Has seen Dr. Chaney. Needs to just follow up prn. Pleural effusion 01/31/2022 04/19/2022 Encounter for support and coordination of transi tion of care 07/20/2021 07/26/2022 Overview: Facility: [facility] Date of admission 07/14/2021 Date of discharge Prehospital work-up: Presented to 07/14/2021 to [facility] ED complaining of left-sided abdominal pain with multiple symptoms including cough, myalgias, nasal congestion, low dietary intake due to concerns that would aggravate stomach ache. Patient was exposed to Covid 2 weeks prior, unvaccinated. Vital signs: 98.3 [id number]/102-93% RA. Exam description: Tired, alert and nontoxic, [...] he could be done outpatient. 07/15/[address] Dwayne Garcia: Assessment right pleural effusion: Continue diuretic therapy, empiric antimicrobials, thoracentesis recommended, eventual right heart cath work and secondary work-up for pH outpatient basis. 07/15/2021 echocardiogram: LV size and LV SF WNL, EF 60 to 65%. RV normal size and RV SF EF. Left atrium moderately enlarged, right atrium mildly enlarged. MV: Moderate mitral annular calcification, 1-2+ LA. TV: Normal. AV: Diffuse aortic valve calcification. [...] of this encounter (statuses as of 09/27/2022) [facility] History of Past illness Narrative* Problem Noted Date Resolved Date Renal infarct 04/19/2022 07/26/2022 Overview: Has seen Dr. Chaney. Needs to just follow up prn. Pleural effusion 01/31/2022 04/19/2022 Encounter for support and coordination of transi tion of care 07/20/2021 07/26/2022 Overview: Facility: [facility] Date of admission 07/14/2021 Date of discharge Prehospital work-up: Presented to 07/14/2021 to [facility] ED complaining of left-sided abdominal pain with multiple symptoms including cough, myalgias, nasal congestion, low dietary intake due to concerns that would aggravate stomach ache. Patient was exposed to Covid 2 weeks prior, unvaccinated. Vital signs: 98.3 [id number]/102-93% RA. Exam description: Tired, alert and nontoxic, [...] he could be done outpatient. 07/15/20[address] consultation agricultural research director [address]. Dwayne Garcia: Assessment right pleural effusion: Continue diuretic therapy, empiric antimicrobials, thoracentesis recommended, eventual right heart cath work and secondary work-up for pH outpatient basis. 07/15/2021 echocardiogram: LV size and LV SF WNL, EF 60 to 65%. RV normal size and RV SF EF. Left atrium moderately enlarged, right atrium mildly enlarged. MV: Moderate mitral annular calcification, 1-2+ LA. TV: Normal. AV: Diffuse aortic valve calcification. [...] of this encounter (statuses as of 09/29/2022) [facility] History of Past illness Narrative* Problem Noted Date Resolved Date Renal infarct 04/19/2022 07/26/2022 Overview: Has seen Dr. Chaney. Needs to just follow up prn. Pleural effusion 01/31/2022 04/19/2022 Encounter for support and coordination of transi tion of care 07/20/2021 07/26/2022 Overview: Facility: [facility] Date of admission 07/14/2021 Date of discharge Prehospital work-up: Presented to 07/14/2021 to [facility] ED complaining of left-sided abdominal pain with multiple symptoms including cough, myalgias, nasal congestion, low dietary intake due to concerns that would aggravate stomach ache. Patient was exposed to Covid 2 weeks prior, unvaccinated. Vital signs: 98.3 [id number]/102-93% RA. Exam description: Tired, alert and nontoxic, [...] he could be done outpatient. 07/15/[address] research director [address]. Dwayne Garcia: Assessment right pleural effusion: Continue diuretic therapy, empiric antimicrobials, thoracentesis recommended, eventual right heart cath work and secondary work-up for pH outpatient basis. 07/15/2021 echocardiogram: LV size and LV SF WNL, EF 60 to 65%. RV normal size and RV SF EF. Left atrium moderately enlarged, right atrium mildly enlarged. MV: Moderate mitral annular calcification, 1-2+ LA. TV: Normal. AV: Diffuse aortic valve calcification. [...] of this encounter (statuses as of 10/07/2022) [facility] History of Past illness Narrative* Problem Noted Date Resolved Date Renal infarct 04/19/2022 07/26/2022 Overview: Has seen Dr. Chaney. Needs to just follow up prn. Pleural effusion 01/31/2022 04/19/2022 Encounter for support and coordination of transi tion of care 07/20/2021 07/26/2022 Overview: Facility: [facility] Date of admission 07/14/2021 Date of discharge Prehospital work-up: Presented to 07/14/2021 to [facility] ED complaining of left-sided abdominal pain with multiple symptoms including cough, myalgias, nasal congestion, low dietary intake due to concerns that would aggravate stomach ache. Patient was exposed to Covid 2 weeks prior, unvaccinated. Vital signs: 98.3 [id number]/102-93% RA. Exam description: Tired, alert and nontoxic, [...] he could be done outpatient. 07/15/20[address] agricultural research director [address]. Dwayne Garcia: Assessment right pleural effusion: Continue diuretic therapy, empiric antimicrobials, thoracentesis recommended, eventual right heart cath work and secondary work-up for pH outpatient basis. 07/15/2021 echocardiogram: LV size and LV SF WNL, EF 60 to 65%. RV normal size and RV SF EF. Left atrium moderately enlarged, right atrium mildly enlarged. MV: Moderate mitral annular calcification, 1-2+ LA. TV: Normal. AV: Diffuse aortic valve calcification. [...] of this encounter (statuses as of 10/14/2022) [facility] History of Past illness Narrative* Problem Noted [...] care 07/20/2021 07/26/2022 Overview: Facility: [facility] Date of admission 07/14/2021 Date of discharge Prehospital work-up: Presented to 07/14/2021 to [facility] ED complaining of left-sided abdominal pain with multiple symptoms including cough, myalgias, nasal congestion, low dietary intake due to concerns that would aggravate stomach ache. Patient was exposed to Covid 2 weeks prior, unvaccinated. Vital signs: 98.3 [id number]/102-93% RA. Exam description: Tired, alert and nontoxic, [...] he could be done outpatient. 07/15/[address] research [address]. Dwayne Garcia: Assessment right pleural effusion: Continue diuretic therapy, empiric antimicrobials, thoracentesis recommended, eventual right heart cath work and secondary work-up for pH outpatient basis. 07/15/2021 echocardiogram: LV size and LV SF WNL, EF 60 to 65%. RV normal size and RV SF EF. Left atrium moderately enlarged, right atrium mildly enlarged. MV: Moderate mitral annular calcification, 1-2+ LA. TV: Normal. AV: Diffuse aortic valve calcification. [...] of this encounter (statuses as of 04/09/2023) [facility] History of Past illness Narrative* Problem Noted [...] care 07/20/2021 07/26/2022 Overview: Facility: [facility] Date of admission 07/14/2021 Date of discharge Prehospital work-up: Presented to 07/14/2021 to [facility] ED complaining of left-sided abdominal pain with multiple symptoms including cough, myalgias, nasal congestion, low dietary intake due to concerns that would aggravate stomach ache. Patient was exposed to Covid 2 weeks prior, unvaccinated. Vital signs: 98.3 [id number]/102-93% RA. Exam description: Tired, alert and nontoxic, [...] he could be done outpatient. 07/15/[address] research director Dr. Dwayne Garcia: Assessment right pleural effusion: Continue diuretic therapy, empiric antimicrobials, thoracentesis recommended, eventual right heart cath work and secondary work-up for pH outpatient basis. 07/15/2021 echocardiogram: LV size and LV SF WNL, EF 60 to 65%. RV normal size and RV SF EF. Left atrium moderately enlarged, right atrium mildly enlarged. MV: Moderate mitral annular calcification, 1-2+ LA. TV: Normal. AV: Diffuse aortic valve calcification. [...] Hypoxia 06/23/2021 11/08/2022 Pleural effusion, right 05/05/2020 06/0 11/2022 Overview: Now seeing Dr. Mariee Thoracic aorta atherosclerosis 03/23/2020 09/23/2020 Chronic systolic heart failure 11/21/2019 09/23/2020 Fatigue 11/24/2016 10/10/2017 Atrial fibrillation 01/14/2014 10/11/19 18 Centrilobular emphysema 01/14/2014/0 11/2022 Multiple thyroid nodules 03/03/2011 Hypertension 01/19/2011 06/23/2015 Esophagitis, unspecified 01/13/200901/2018 Gastrointestinal malfunction arising from mental factors 12/09/2008 10/10/2017 Nontoxic multinodular goiter 12/08/2008 05/08/2018 Dysphagia, unspecified(787.20) 05/08/2018 documented as of this encounter (statuses as of 04/09/2023) [facility]11[facility] History of Past illness Narrative* Problem Noted [...] care 07/20/2021 07/26/2022 Overview: Facility: [facility] Date of admission 07/14/2021 Date of discharge Prehospital work-up: Presented to 07/14/2021 to [facility] ED complaining of left-sided abdominal pain with multiple symptoms including cough, myalgias, nasal congestion, low dietary intake due to concerns that would aggravate stomach ache. Patient was exposed to Covid 2 weeks prior, unvaccinated. Vital signs: 98.3 R-[id number]/102-93% RA. Exam description: Tired, alert and nontoxic, [...] he could be done outpatient. 07/15/2021 consultation agricultural research director Dr. Dwayne Garcia: Assessment right pleural effusion: Continue diuretic therapy, empiric antimicrobials, thoracentesis recommended, eventual right heart cath work and secondary work-up for pH outpatient basis. 07/15/2021 echocardiogram: LV size and LV SF WNL, EF 60 to 65%. RV normal size and RV SF EF. Left atrium moderately enlarged, right atrium mildly enlarged. MV: Moderate mitral annular calcification, 1-2+ LA. TV: Normal. AV: Diffuse aortic valve calcification. [...] Hypoxia 06/23/2021 11/08/2022 Pleural effusion, right 05/05/2020 06/0 11/2022 Overview: Now seeing Dr. Mariee Thoracic aorta atherosclerosis 03/23/2020 09/23/2020 Chronic systolic heart failure 11/21/2019 09/23/2020 Fatigue 11/24/2016 10/10/2017 Atrial fibrillation 01/14/2014 10/11/19 Centrilobular emphysema 01/14/20140 11/2022 Multiple thyroid nodules 03/03/2011 Hypertension 01/19/2011 06/23/2015 Esophagitis, unspecified 01/13/200901/2018 Gastrointestinal malfunction arising from mental factors 12/09/2008 10/10/2017 Nontoxic multinodular goiter 12/08/2008 05/08/2018 Dysphagia, unspecified(787.20) 05/08/2018 documented as of this encounter (statuses as of 04/09/2023) [facility]11[facility] History of Present illness Narrative* Christopher Bonilla MD - 04/19/2022 11:57 AM EST [...] mouth twice daily. WALKER ROLLATOR SEAT WITH 6" WHEELS - RED Daily use R26.81 Gait [...] Moderate mitral regurgitation 06/18/2021 04/27/21 Echo at [facility]. Pleural effusion, right 05/05/2020 CXR 11/18/19 and [...] 110/56 Pulse 61 Ht 154.9 cm (5' 1") Wt 61.1 kg (134 lb 9.6 oz) [...] ICD10: N28.0 - no follow up needed. Christopher Bonilla MD RTO in three months or prn documented in this encounterUniversity Hospitals [facility]11-15-2022 History of Present illness Narrative* Elisabeth Shannon RN - 04/19/2022 9:38 AM EST PRIMARY CARE COORDINATION QUICK NOTE Provider Action/FYI Patient scheduled to see pcp today. Defer outreach one week. Patient identified by name and date . documented in this encounterUniversity [facility]als [facility]11-01-2022 History of Present illness Narrative* Elisabeth Shannon RN - 04/05/2022 12:06 PM EDT INSIGHT [...] like to speak with a social work steamfitter apprentice to help give you support for any [...] you up for automated weekly questionnaires through [employer]. This is an easy way for us [...] Track PtOutreach and End outreach. * Elisabeth Shannon RN - 04/05/2022 12:02 PM EDT INSIGHT [facility] TELEPHONIC OUTREACH Provider Action/FYI: Contact made with patient: No - Unable to leave message Entered next patient outreach date for the following day, if third call please enter next outreach date for one week in the Track Pt. Outreach - End Outreach documented in this encounterUniversity Hospitals [facility]10-25-2022 History of Present illness Narrative* Jason Gallegos DO - 03/29/2022 3:06 PM EDT Agree with below Jason Gallegos DO * Yanely Posadas RN - 03/29/2022 2:41 PM EDT patient had inr completed at [facility] patients inr is 2.1 (patients inr range [...] reading since dose change documented in this encounterUniversity Hospitals [facility] Center10-20-2022 History of Present illness Narrative* Elisabeth Shannon RN - 03/24/2022 10:49 AM EDT LAURA REYNA TELEPHONIC OUTREACH Provider Action/FYI: Patient reports she [...] office. Patient states her BP has been "good", has not checked recently but at 03/15 [...] like to speak with a social work steamfitter apprentice to help give you support for any [...] you up for automated weekly questionnaires through [employer]. This is an easy way for us [...] PtOutreach and End outreach. documented in this encounterUniversity Hospitals Cleveland Medical Center10-18-2022 History of Present illness Narrative* Elisabeth Shannon RN - 03/22/2022 11:35 AM EDT INSIGHT [facility] TELEPHONIC OUTREACH Provider Action/FYI: Contact made with patient: No - Left message Hello my name is Elisabeth Shannon RN your Flap Curer from the [facility] I am calling today for your bi-weekly check in. I am sorry I missed your call. I will reach out to you again tomorrow. (if the third call I will reach out to you again next week) Enter next patient outreach date for the following day using the Track Pt Outreach. End outreach. documented in this encounterUniversity Hospitals Cleveland Medical Center10-11-2022 Miscellaneous Notes* Telephone Encounter - Yanely Posadas RN - 03/15/2022 4:01 PM EDT patients orders for coumadin clinic inr's has at this time. new order has been pended for approval if possible so that patient can continue to get inr's completed thru the coumadin clinic. coumadin clinic nurse only needs called if order can not be approved. documented in this encounterUniversity Hospitals Cleveland Medical Center10-11-2022 Instructions* Patient Instructions* Usman Mehta PA-C - 03/15/2022 2:52 PM EDT Take extra 2mg coumadin today, recheck INR in 1 week. documented in this encounterUniversity Hospitals Cleveland Medical Center10-11-2022 History of Present illness Narrative* Usman Mehta PA-C - 03/15/2022 2:20 PM EDT [...] Moderate mitral regurgitation 06/18/2021 04/27/21 Echo at [facility]. Pleural effusion, right 05/05/2020 CXR 11/18/19 and [...] ABDOMINAL HYSTERECT W/WO RMVL TUBE OVARY Hysterectomy, [facility] Social History Tobacco Use Smoking status: Never [...] 180 tablet 3 WALKER ROLLATOR SEAT WITH 6" WHEELS - RED Daily use R26.81 Gait [...] to percussion but egophony but vibration to "99" not palpable until lower 2/3 bilateral. Lungs [...] - ICD9: 790.7, ICD10: R78.81 resolved Usman Metha PA-C documented in this encounterUniversity Hospitals Cleveland Medical Center10-04-2022 Miscellaneous Notes* Telephone Encounter - Tia Harding RN - 03/08/2022 11:12 AM EDT Eddie Bonilla Pt was discharged from home health on 03/04/22 with goals met. [facility] you for following this [facility] pt. documented in this encounterUniversity Hospitals Cleveland Medical Center10-04-2022 Miscellaneous Notes* Telephone Encounter - Elisabeth Shannon RN - 03/08/2022 10:23 AM EDT PRIMARY [...] twice daily. Please review and advise. Elisabeth Shannon RN Patient identified by name and date . documented in this encounterUniversity Hospitals [facility] Center10-04-2022 History of Present illness Narrative* Elisabeth Shannon RN - 03/08/2022 10:19 AM EDT INSIGHT [...] blood pressures at home? Yes, Enter readings: "Has been running good, have not checked yet today" Do you have new or worse shortness [...] like to speak with a social work steamfitter apprentice to help give you support for any [...] you up for automated weekly questionnaires through [employer]. This is an easy way for us [...] PtOutreach and End outreach. documented in this encounterUniversity Hospitals Cleveland Medical Center09-30-2022 Miscellaneous Notes* [facility] Agency DC - Tia Harding RN - 03/04/2022 6:57 PM EDT SITUATION: Long Term agency discharge visit completed today. dc vs [...] for additional medical questions/concerns. documented in this encounterUniversity Hospitals Cleveland Medical Center09-29-2022 Miscellaneous Notes* Telephone Encounter - Seema Garcia - 03/03/2022 8:58 AM EDT Patient informed and verbalized understanding. Seema Garcia * Telephone Encounter - Christopher Bonilla MD - 03/03/2022 8:51 AM EDT Same. Recheck two weeks. * Telephone Encounter - Debbie Long Ma - 03/03/2022 8:26 AM EDT Last INR: INR (POCT) 2.5 03/02/2022 Current dose of coumadin is: 4 MW, 2 mg all other days. Previous INR (date and result): 2.3 02/24/22 Additional Clinical Information or narrative: no documented in this encounterUniversity Hospitals Cleveland Medical Center09-28-2022 Miscellaneous Notes* HH SN Routine - Tia Harding RN - 03/02/2022 1:51 PM EDT SITUATION: Long Term routine visit completed today. only patient present [...] [place] [facility] NOMNC reviewed and signed by pt today. See intervention summary for education details. Patient demonstrated a need for further skilled SN services for agency dc by phone. Current Discharge plan: self-care and family support RECOMMENDATION: Next visit to focus on (be specific): NA, will plan a telephone dc on 03/04/22. documented in this encounterUniversity Hospitals Cleveland Medical Center09-23-2022 Miscellaneous Notes* CARE COORDINATION - Manju Larson PT - 02/25/2022 8:30 AM EDT PT visits denied by insurace Contacted pt and MD to notify message sent to SN documented in this encounterUniversity Hospitals Cleveland Medical Center09-22-2022 Miscellaneous Notes* SN Routine - Tia Harding RN - 02/24/2022 12:16 PM EDT SITUATION: Long Term routine visit completed today. only patient present [...] CHF assessment and instruction. documented in this encounterUniversity Hospitals Cleveland Medical Center2022 Miscellaneous Notes* Telephone Encounter - Cadence Bustillo LPN - 02/23/2022 3:11 PM EDT Attempted to reach patient to let her know and not accepting calls at this time. Message forwarded on to home health nurse. * Telephone Encounter - Christopher Bonilla MD - 02/23/2022 2:28 PM EDT Ok to draw when they go out. * Telephone Encounter - Yolis Tran RN - 02/23/2022 1:27 PM EDT Yanely Mo [facility] Home Care called in and reports [...] a message. Please advise. documented in this encounterUniversity Hospitals Cleveland Medical Center09-20-2022 Miscellaneous Notes* Telephone Encounter - Gemma Machado PTA - 02/22/2022 1:34 PM EDT We are waiting on insurance authorization to come through for home care PT. Patient requested to hold on PT visits until authorization is received. documented in this encounterUniversity Hospitals Cleveland Medical Center09-20-2022 History of Present illness Narrative* Elisabeth Shannon RN - 02/22/2022 12:35 PM EDT INSIGHT [...] like to speak with a social work steamfitter apprentice to help give you support for any [...] you up for automated weekly questionnaires through [employer]. This is an easy way for us [...] PtOutreach and End outreach. documented in this encounterUniversity Hospitals Cleveland Medical Center09-19-2022 Miscellaneous Notes* CARE COORDINATION - Gemma Machado PTA - 02/21/2022 1:22 PM EDT PT contacted patient on 02/21/22 for the following: to explain that insurance authorization for PT ispending. Patient voiced understanding and requested to hold on any further PT visits until authorization is received. New orders: None Follow up needed: None documented in this encounterUniversity Hospitals Cleveland Medical Center09-16-2022 Miscellaneous Notes* PT ROUTINE/REASSESSMENT/RECERT/CASE MGMT - Manju Larson PT - 02/18/2022 1:11 PM EDT SITUATION: family home during visit but remained in other rooms during visit . patient reports the following since the last homecare visit: medications/allergies--no changes, no fall. patient rreports that she is feeling a little stronger BACKGROUND: Diagnoses (reason for Home Care): Hosp 01/25- at [facility] then transferred to [facility] 01/31-or Pleural effusion, right and Paroxysmal atrial [...] summary for intervention/education details. documented in this encounterUniversity Hospitals Cleveland Medical Center09-15-2022 Miscellaneous Notes* Telephone Encounter - Cadence Bustillo LPN - 02/17/2022 4:15 PM EDT Patient notified and repeats back instructions. * Telephone Encounter - Christopher Bonilla MD - 02/17/2022 4:01 PM EDT [...] Information or narrative: no documented in this encounterUniversity Hospitals Cleveland Medical Center09-13-2022 Miscellaneous Notes* Telephone Encounter - Christopher Bonilla MD - 02/15/2022 1:47 PM EDT [...] your review of this information. Erik Hassan RN-[facility] for [facility]. documented in this encounterUniversity Hospitals Cleveland Medical Center09-13-2022 Miscellaneous Notes* SN Routine - Tia Harding RN - 02/15/2022 1:06 PM EDT SITUATION: Long Term routine visit completed today. only patient present [...] on (be specific): PT/INR documented in this encounterUniversity Hospitals Cleveland Medical Center09-13-2022 Miscellaneous Notes* PT ROUTINE/REASSESSMENT/RECERT/CASE MGMT - Gemma [...] (reason for Home Care): Hosp 01/25- at [facility] then transferred to [facility] 01/31-02/06 for Pleuraleffusion, right and Paroxysmal atrial [...] summary for intervention/education details. documented in this encounterUniversity Hospitals Cleveland Medical Center09-12-2022 Miscellaneous Notes* Telephone Encounter - Debbie Long Ma - 02/14/2022 1:09 PM EDT Patient was made aware of the results. Patient verbalizes understanding. Labs and xrays were faxed. Debbie Long Ma * Telephone Encounter - Christopher Bonilla MD - 02/14/2022 8:41 AM EDT Her labs are stable. Continue meds. After reviewing hospital records in detail over the weekend. 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 She has seen both our pulmonary department as well as across the street. We need her to follow up with whichever one she wants to follow with. (Has appt to see cardiology already_ Can we fax labs and xray to [facility]-I think she is seeing them today documented in this encounterUniversity Hospitals Cleveland Medical Center09-09-2022 Miscellaneous Notes* PT EVALUATION - Manju Larson, PT - 02/11/2022 10:41 AM EDT SITUATION: PT evaluation, only patient present during today's visit. patient reports the following since the last homecare visit: medications/allergies--no changes, no fall. BACKGROUND: Hosp 01/25- at [facility] then transferred to [facility] 01/31-02/06 for Pleural effusion, right and Paroxysmal atrial fibrillation past medical history :Marfan's Syndrome Esophageal Reflux Hyperlipidemia History of Polymyalgia Rheumatica Centrilobular Emphysema Paroxysmal Atrial Fibrillation Hypertension, Essential Chronic Anticoagulation Lung Nodule Pleural Effusion, Right Prediabetes Pulmonary Hypertension Moderate Mitral Reg urgitation Pleural Effusion precautions fall risk Weight Bearing or Surgical Precautions: none ASSESSMENT: [facility]. Reviewed and explained homecare [...] summary for intervention/education details. documented in this encounterUniversity Hospitals Cleveland Medical Center09-08-2022 Miscellaneous Notes* Telephone Encounter - Christopher Bonilla MD - 02/10/2022 11:48 AM EDT [...] and amiodarone, please advise. Thank you, Maureen TODD documented in this encounterUniversity Hospitals Cleveland Medical Center09-07-2022 Miscellaneous Notes* Telephone Encounter - Airam Ayon RN - 02/09/2022 5:38 PM EDT Spoke with patient. Given message from provider's office. Patient verbalizes understanding. Coumadin/INR recheck instructions verified by teach back. Airam Ayon RN * Telephone Encounter - Cadence Bustillo LPN - 02/09/2022 4:59 PM EDT Rings with no answer. Will attempt again tomorrow. * Telephone Encounter - Christopher Bonilla MD - 02/09/2022 4:52 PM EDT [...] Information or narrative: no documented in this encounterUniversity Hospitals Cleveland Medical Center09-07-2022 Miscellaneous Notes* Telephone Encounter - Cadence Bustillo LPN - 02/09/2022 4:55 PM EDT INR completed today. * Telephone Encounter - Jennifer Kimball Ma - 02/08/2022 4:33 PM EDT Call to pt and phone continuously rings and receive a message stating "your libertarian is not answering,please try calling again later". Jennifer Kimball Ma * Telephone Encounter - Christopher Bnoilla MD - 02/08/2022 4:27 PM EDT Stay on same dose tonight. Get done in am. * Telephone Encounter - Deana Coleman RN - 02/08/2022 4:21 PM EDT Patient calls and states that she cannot find a ride to get INR done today. Patient asking what coumadin dose should she take tonight? Please review and advise, Deana Coleman RN documented in this encounterUniversity Hospitals Cleveland Medical Center09-07-2022 Miscellaneous Notes* SN SOC - Maureen Bowser RN - 02/09/2022 12:02 PM EDT SITUATION: Long Term SOC visit completed today. spouse, and family [...] incision check, medication education documented in this encounterUniversity Hospitals Cleveland Medical Center09-07-2022 History of Present illness Narrative* Elisabeth Shannon RN - 02/09/2022 11:00 AM EDT INSIGHT CDM TELEPHONIC OUTREACH Provider Action/FYI: Patient states she is feeling better now that she is home, inpatient at [facility] 01/31/22 to 02/06/22, [facility] nurse will be at her house for SOC today. Patient states she will have INR drawn today after [facility] nurse is done, has follow up [...] like to speak with a social work steamfitter apprentice to help give you support for any [...] you up for automated weekly questionnaires through [employer]. This is an easy way for us [...] PtOutreach and End outreach. documented in this encounterUniversity Hospitals Cleveland Medical Center09-06-2022 Miscellaneous Notes* Telephone Encounter - Kaley Armendariz - 02/08/2022 3:27 PM EDT Called PT no VM setup will attempt again. Thanks * Telephone Encounter - Christopher Bonilla MD - 02/08/2022 2:18 PM EDT Needs INR [place]. * Telephone Encounter - Deana Coleman RN - 02/08/2022 1:51 PM EDT Patient calls and states that she was discharged from [facility] on 02/06/2022. Patient states that her INR [...] advise, Deana Coleman RN documented in this encounterUniversity Hospitals Cleveland Medical Center09-06-2022 History of Present illness Narrative* Vicki Christianson [...] appointment? No Reason for Outreach Community Monitoring Pool Payer: Payor: [employer] MEDICARE / Plan: [employer] MEDICARE PPO / Product Type: PPO / Care Gap Reviewed:: Follow-up appointment Reminder: Reminder note to check Health Maintenance for items below Health Maintenance items due: INFLUENZA(1) due on 02/03/2022 Message Sent to Practice: No Vicki Christianson [facility] Navigator February 08, 2022 11:21 AM Electronically signed by Vicki Christianson [facility] at 02/08/2022 11:22 AM EDT * Colleen Cardenas RN - 02/08/2022 10:29 AM EDT TRANSITIONAL CARE MANAGEMENT (TCM) COMMUNITY MONITORING PROGRAM TCM Home Visit Referral Source of Stratification: [facility] Admission Status: Discharged Readmission Risk Score: [...] care team. Thank you, Colleen Cardenas RN, [facility] Transitions of Care Critical Issues: LAB MONITORING NEEDED: Repeat INR in 2-3 days LABS AND PROCEDURES PENDING AT DISCHARGE: No pending results. Patient reports she is a little weak but otherwise feeling better. Denies CP, SOB, palpitations, dizziness, fever, increased swelling, or any worsening SX Plans to call and schedule for repeat INR with [facility] Agrees to call from [facility] for TCM appt. Reports she is up moving around with her walker. Provided with number for [facility] to return their call for SOC Reviewed CT site wound care. Dsg d/I Denies further concerns or questions. SUMMARY: Pt discharged from [facility] on 02/06. Admitted for: Pleural effusion /parapneumonia effusion Contact made with patient: Yes Hi my name is Colleen Cardenas RN and I am calling from the [facility] on behalf of your PCP,Christopher Bonilla MD I understand you were recently [...] Med adjustments only, per patient preference. See [facility] pharmacy outreach. SOCIAL: We would like to make sure you have what you need so that your basics needs are met - including your personal safety, food, housing and medications. Would you like to speak with a social work steamfitter apprentice to help give you support for any [...] I will send your request to a program scheduler who will contact and assist you with that appointment. This will give you an opportunity to ask any questions or address any concerns youmay have with your PCP. Inform the patient that if they have any questions or concerns prior to that appointment, to call their PCP's office right away. ACTION TAKEN: Patient desires an appointment - Routed to [facility] [[phone]] for schedulingtelehealth visit (telephonic, virtual visit, or [...] inform them of cough and fever symptoms [place] if present (or call on the way if possible). documented in this encounterUniversity Hospitals Cleveland Medical Center08-29-2022 History of Past illness Narrative* Problem Noted [...] of this encounter (statuses as of 04/19/2022) [facility]08-29-2022 History of Past illness Narrative* Problem Noted [...] of this encounter (statuses as of 04/19/2022) [address] History of Past illness Narrative* Problem [...] of this encounter (statuses as of 04/19/2022) [address] History of Past illness Narrative* Problem [...] of this encounter (statuses as of 04/20/2022) [facility]08-29-[facility] History of Past illness Narrative* Problem Noted [...] of this encounter (statuses as of 04/26/2022) [facility] History of Past illness Narrative* Problem Noted [...] of this encounter (statuses as of 05/17/2022) [address]29-2022 History of Past illness Narrative* Problem [...] of this encounter (statuses as of 05/18/2022) [facility]08[facility] History of Past illness Narrative* Problem Noted [...] of this encounter (statuses as of 05/19/2022) [place] [address]22 History of Past illness Narrative* Problem Noted [...] of this encounter (statuses as of 05/21/2022) [address]29-2022 History of Past illness Narrative* Problem [...] of this encounter (statuses as of 05/27/2022) [facility] History of Past illness Narrative* Problem Noted [...] of this encounter (statuses as of 06/08/2022) [address]29-2022 History of Past illness Narrative* Problem [...] of this encounter (statuses as of 06/21/2022) [place] [address]22 History of Past illness Narrative* Problem Noted [...] of this encounter (statuses as of 06/29/2022) [address]29-2022 History of Past illness Narrative* Problem [...] of this encounter (statuses as of 06/30/2022) [address]29-2022 History of Past illness Narrative* Problem [...] of this encounter (statuses as of 07/04/2022) [place] [address] History of Past illness Narrative* Problem Noted [...] of this encounter (statuses as of 07/04/2022) [address]29-2022 History of Past illness Narrative* Problem [...] of this encounter (statuses as of 07/07/2022) [place] [address] History of Past illness Narrative* Problem Noted [...] of this encounter (statuses as of 07/07/2022) [address]29-2022 History of Past illness Narrative* Problem [...] of this encounter (statuses as of 07/11/2022) [place] [address]22 History of Past illness Narrative* Problem Noted [...] of this encounter (statuses as of 07/21/2022) [facility]08-12-2022 History of Present illness Narrative* Joleen Delcid MD - 01/14/2022 4:10 PM EDT I agree with the advice given; stay same and recheck in 1 month Joleen Delcid MD * Yanely Posadas RN - 01/14/2022 1:24 PM EDT patient had inr completed at [facility] patients inr is 2.0 (patients inr range [...] for follow up INR. documented in this encounterUniversity Hospitals Cleveland Medical Center08-12-2022 Instructions* Patient Instructions* Dalila Jensen APRN.CNP - 01/14/2022 2:05 PM EDT Continue the same medication. 2. Recheck in 3 months. 3. Get fasting labwork prior to next appt. documented in this encounterUniversity Hospitals Cleveland Medical Center08-12-2022 History of Present illness Narrative* Dalila Jensen APRN.CNP - 01/14/2022 1:38 PM EDT This is a 76 year old female who presents today with: Patient presents with: Recheck: 3 month follow up; INR done today; HISTORY OF PRESENT ILLNESS: Libra Ceja is a 76 year old female. [...] HISTORY: PAST MEDICAL HISTORY Diagnosis Date A-fib ([facility]) Class 1 congestive heart failure, unspecified failure chronicity, systolic (HCC) 11/21/2019 Dysphagia, unspecified(787.20) Esophageal reflux Esophagitis, unspecified Marfan's syndrome Moderate mitral regurgitation 06/18/2021 04/27/21 Echo at [facility]. Pleural effusion, right 05/05/2020 CXR 11/18/19 and [...] Crestor [Rosuvastatin Calcium], Ibuprofen, Prevnar 13 [Pneumoc 13-Chely Conj-Dip Cr(Pf)], and Latex MEDICATIONS Current Outpatient [...] mouth once daily. WALKER ROLLATOR SEAT WITH 6" WHEELS - RED Daily use R26.81 Gait [...] APRN.TRICIA This note was partially generated using [employer] voice recognition system. Note was reviewed for accuracy. There may be minor misspellings or grammar miscues with [employer] voice recognition. documented in this encounterUniversity Hospitals Cleveland Medical Center08-03-2022 History of Present illness Narrative* Elisabeth Shannon RN - 01/05/2022 9:18 AM EDT INSIGHT [facility] TELEPHONIC OUTREACH Provider Action/FYI: No concerns at [...] like to speak with a social work steamfitter apprentice to help give you support for any [...] you up for automated weekly questionnaires through [employer]. This is an easy way for us [...] PtOutreach and End outreach. documented in this encounterUniversity Hospitals Cleveland Medical Center07-18-2022 History of Present illness Narrative* Elisabeth Shanonn RN - 12/20/2021 2:13 PM EDT INSIGHT [...] like to speak with a social work steamfitter apprentice to help give you support for any [...] you up for automated weekly questionnaires through [employer]. This is an easy way for us [...] PtOutreach and End outreach. documented in this encounterUniversity Hospitals Cleveland Medical Center07-18-2022 Miscellaneous Notes* Telephone Encounter - Airam Ayon [...] you. Airam Ayon, RN documented in this encounterUniversity Hospitals Cleveland Medical Center07-14-2022 History of Present illness Narrative* Christopher Bonilla MD - 12/16/2021 2:36 PM EDT agree * Yanely Posadas RN - 12/16/2021 2:06 PM EDT patient had inr completed at [facility] patients inr is 2.7 (patients inr range [...] for follow up INR. documented in this encounterUniversity Hospitals Cleveland Medical Center06-16-2022 History of Present illness Narrative* Christopher Bonilla MD - 11/18/2021 1:43 PM EDT agree * Yanely Posadas RN - 11/18/2021 1:24 PM EDT patient had inr completed at [facility] patients inr is 2.6 (patients inr range [...] for follow up INR. documented in this encounterUniversity Hospitals Cleveland Medical Center06-07-2022 History of Present illness Narrative* Elisabeth Shannon RN - 11/09/2021 12:17 PM EDT INSIGHT [...] like to speak with a social work steamfitter apprentice to help give you support for any [...] you up for automated weekly questionnaires through [employer]. This is an easy way for us [...] PtOutreach and End outreach. documented in this encounterUniversity Hospitals Cleveland Medical Center06-06-2022 History of Present illness Narrative* Elisabeth Shannon RN - 11/08/2021 3:04 PM EDT INSIGHT CDM TELEPHONIC OUTREACH Provider Action/FYI: Contact made with patient: No - Left message Eddie my name is Elisabeth Shannon RN your Flap Curer from the [facility] I am calling today for your bi-weekly check in. I am sorry I missed your call. I will reach out to you again tomorrow. (if the third call I will reach out to you again next week) Enter next patient outreach date for the following business day using the Track Pt Outreach. End outreach. documented in this encounterUniversity Hospitals Cleveland Medical Center05-31-2022 History of Present illness Narrative* Christopher Bonilla MD - 11/02/2021 2:14 PM EDT agree * Yanely Posadas RN - 11/02/2021 1:53 PM EDT patient had inr completed at [facility] patients inr is 3.0 (patients inr range [...] high end of normal documented in this encounterUniversity Hospitals Cleveland Medical Center05-23-2022 History of Present illness Narrative* Elisabeth Shannon RN - 10/25/2021 1:22 PM EDT PRIMARY CARE COORDINATION QUICK NOTE Provider Action/FYI Spoke to pt, relayed message from pcp. Pt had no further questions, concerns, needs at this time. Patient identified by name and date . Elisabeth Shannon RN In File Operator * Christopher Bonilla MD - 10/25/2021 1:10 PM EDT Bmp was stable. * Elisabeth Shannon RN - 10/25/2021 12:50 PM EDT INSIGHT CDM TELEPHONIC OUTREACH Provider [...] like to speak with a social work steamfitter apprentice to help give you support for any [...] you up for automated weekly questionnaires through [employer]. This is an easy way for us [...] PtOutreach and End outreach. documented in this encounterUniversity Hospitals Cleveland Medical Center05-16-2022 History of Present illness Narrative* Christopher Bonilla MD - 10/18/2021 1:16 PM EDT agree * Yanely Posadas RN - 10/18/2021 1:13 PM EDT patient had inr completed at [facility] patients inr is 2.2 (patients inr range [...] reading since dose change documented in this encounterUniversity Hospitals Cleveland Medical Center05-09-2022 History of Present illness Narrative* Debbie Long Ma - 10/11/2021 3:10 PM EDT Patient instructed of dosage with teach back method. Verbalizes understanding. * Christopher Bonilla MD - 10/11/2021 1:44 PM EDT Hold x 1 day, then begin 4 mg on M and F, 2 mg a day rest of the week. Recheck one week * Yanely Posadas RN - 10/11/2021 1:32 PM EDT patient had inr completed at [facility] patients inr is 3.5 (patients inr range [...] up inr on 10/18/21 documented in this encounterUniversity Hospitals Cleveland Medical Center05-09-2022 Miscellaneous Notes* Telephone Encounter - Elisabeth Shannon RN - 10/11/2021 12:04 PM EDT Last OV 10/04/21 Next OV 01/04/22 Patient phones requesting refills as follows: Pending Prescriptions Disp Refills METOPROLOL TARTRATE 100 MG TABLET 180 tablet 3 Sig: Take 1 tablet by mouth twice daily. ERIN: No Please review and advise. Elisabeth Shannon RN documented in this encounterUniversity Hospitals Cleveland Medical Center05-09-2022 History of Present illness Narrative* Elisabeth Shannon RN - 10/11/2021 11:46 AM EDT INSIGHT CDM TELEPHONIC OUTREACH Provider [...] like to speak with a social work steamfitter apprentice to help give you support for any [...] you up for automated weekly questionnaires through [employer]. This is an easy way for us [...] PtOutreach and End outreach. documented in this encounterUniversity Hospitals Cleveland Medical Center05-04-2022 Miscellaneous Notes* Telephone Encounter - Jennifer Kimball Ma - 10/06/2021 9:55 AM EDT Called pt and notified her of results and recommendation of PCP below. Pt verbalized understanding. Jennifer Kimball Ma * Telephone Encounter - Christopher Bonilla MD - 10/06/2021 8:34 AM EDT Her labs are stable. Kidney function is slightly lower probably secondary to her lasix which she needs. Recheck bmp, a1c in two weeks. documented in this encounterUniversity Hospitals Cleveland Medical Center05-03-2022 Miscellaneous Notes* Telephone Encounter - Mimi Feldman LPN - 10/05/2021 10:56 AM EDT Patient notified. Verbalized understanding. Faxed results * Telephone Encounter - Mimi Feldman LPN - 10/05/2021 10:55 AM EDT ----- Message from Christopher Bonilla MD sent at 10/04/2021 4:39 PM EDT ----- Let her know fluid on her chest xray looks improved. Send a copy of xray to [facility]. documented in this encounterUniversity Hospitals Cleveland Medical Center05-02-2022 History of Present illness Narrative* Marjan Garces RT(R) - 10/04/2021 3:20 PM EDT Radiology Service Progress Note PATIENT NAME: Libra Ceja DATE OF SERVICE: October 04, 2021 TIME: 3:15 PM PATIENT IDENTITY VERIFICATION COMPLETED USING TWO [...] Yes RADIOLOGY DEPARTMENT: General X-ray: Exam(s) Completed: Chest X-Ray PERIPHERAL IV DATA: Not applicable SIGNED BY: RT Araceli(R) October 04, 2021 3:15 PM documented in this encounterUniversity Hospitals Cleveland Medical Center05-02-2022 Instructions* Patient Instructions* Christopher Bonilla MD - 10/04/2021 2:52 PM EDT Hold coumadin today, then start 2 mg a day, except 4 mg on Monday, Mon, Monday. Recheck inr in one week documented in this encounterUniversity Hospitals Cleveland Medical Center05-02-2022 History of Present illness Narrative* Christopher Bonilla MD - 10/04/2021 2:51 PM EDT Hold x 1 day, then 4 mg MWF, 2 mg a day rest of the week. Recheck one week. Patient notified. * Yanely Posadas RN - 10/04/2021 12:04 PM EDT patient had inr completed at [facility] patients inr is 4.2 (patients inr range [...] up inr on 10/11/21 documented in this encounterUniversity Hospitals Cleveland Medical Center05-02-2022 History of Present illness Narrative* Christopher Bonilla MD - 10/04/2021 2:36 PM EDT [...] See previous ov, copied and pasted from [facility] on 08/25/21: Labs from last ov showed [...] has a hx of colon polypectomy in 2015. Have recommended in the past. Suggested she [...] mouth twice daily. WALKER ROLLATOR SEAT WITH 6" WHEELS - RED Daily use R26.81 Gait [...] congestive heart failure, unspecified failure chronicity, systolic ([facility]) 11/21/2019 Dysphagia, unspecified(787.20) Esophageal reflux Esophagitis, unspecified Marfan's syndrome Moderate mitral regurgitation 06/18/2021 04/27/21 Echo at [facility]. Pleural effusion, right 05/05/2020 CXR 11/18/19 and [...] ICD9: V58.83, ICD10: Z51.81 - TSH BLD Christopher Bonilla RTO in three months and prn. documented in this encounterUniversity Hospitals Cleveland Medical Center04-25-2022 History of Present illness Narrative* Elisabeth Shannon, [place] - 09/27/2021 12:01 PM EDT INSIGHT CDM TELEPHONIC OUTREACH Provider [...] like to speak with a social work steamfitter apprentice to help give you support for any [...] you up for automated weekly questionnaires through [employer]. This is an easy way for us [...] PtOutreach and End outreach. documented in this encounterUniversity Hospitals Cleveland Medical Center04-18-2022 Miscellaneous Notes* Telephone Encounter - Isaiah Skinner LPN - 09/20/2021 2:06 PM EDT Pt notified. She verbalized understanding. Isaiah Skinner LPN * Telephone Encounter - Dalila Jensen APRN.CNP - 09/20/2021 1:52 PM EDT INR order [...] draw. Reports she no longer has a [facility] nurse. documented in this encounterUniversity Hospitals Cleveland Medical Center04-14-2022 Miscellaneous Notes* Telephone Encounter - Debbie Long Ma - 09/16/2021 10:35 AM EDT Spoke with nurse at [facility] Esthetician Permanent Makeup Artist and relayed coumadin instructions and follow up. She will advise pt. Debbie Long Ma * Telephone Encounter - Christopher Bonilla MD - 09/16/2021 10:29 AM EDT 5 mg today, then starting tomorrow 4 mg THSS, 2 mg a day rest of the week. Recheck Monday * Telephone Encounter - Yolis Tran RN - 09/16/2021 10:19 AM EDT [facility] called and reports that Pt had [...] call the patient back. documented in this encounterUniversity Hospitals Cleveland Medical Center04-14-2022 Miscellaneous Notes* Telephone Encounter - Christopher Bonilla MD - 09/16/2021 10:30 AM EDT [...] concern was not there. documented in this encounterUniversity Hospitals Cleveland Medical Center04-07-2022 History of Present illness Narrative* Christopher Bonilla MD - 09/09/2021 5:18 PM EDT agree * Debbie Long Ma - 09/09/2021 2:56 PM EDT Patient notified today she is having a biopsy on . She was advised to hold coumadin for [address] Bonilla and advised she can hold now until procedure. * Christopher Bonilla MD - 09/09/2021 2:15 PM EDT Now high. Hold today and tomorrow. Really watch diet closely. Change to 2 mg a day, except 4 mg MWF. Recheck on Mon next week * Yanely Posadas RN - 09/09/2021 2:06 PM EDT patient had inr completed at [facility] patients inr is 4.6 (patients inr range [...] is closed next week documented in this encounterUniversity Hospitals Cleveland Medical Center03-29-2022 History of Present illness Narrative* Elisabeth Shannon RN - 08/31/2021 10:39 AM EDT INSIGHT [...] like to speak with a social work steamfitter apprentice to help give you support for any [...] you up for automated weekly questionnaires through [employer]. This is an easy way for us [...] PtOutreach and End outreach. documented in this encounterUniversity Hospitals Cleveland Medical Center03-23-2022 Miscellaneous Notes* Telephone Encounter - Cadence Bustillo LPN - 08/25/2021 5:35 PM EDT Patient was notified. * Telephone Encounter - Christopher Bonilla MD - 08/25/2021 5:25 PM EDT Same. Recheck two weeks. * Telephone Encounter - Cadence Bustillo LPN - 08/25/2021 5:01 PM EDT INR 2.9 Current dose 4mg TTSS and 2 mg all other days documented in this encounterUniversity Hospitals Cleveland Medical Center03-23-2022 Miscellaneous Notes* Telephone Encounter - Cadence Bustillo [...] Isaiah Skinner LPN * Telephone Encounter - Christopher Bonilla MD - 08/25/2021 4:12 PM EDT Her fluid looks like it may be getting worse again. Take an additional dose of lasix today and tomorrow . She is seeing Dr. Garcia pulmonary at [facility] now. Can we fax to them and see if they can get herback in soon. Call immediately if any worsening shortness of breath, cough or fever. documented in this encounterUniversity Hospitals Cleveland Medical Center03-23-2022 History of Present illness Narrative* Marjan Garces, RT(R) - 08/25/2021 3:10 PM EDT Radiology Service Progress Note PATIENT NAME: Libra Ceja DATE OF SERVICE: August 25, 2021 TIME: 3:12 PM PATIENT IDENTITY VERIFICATION COMPLETED USING TWO [...] Yes RADIOLOGY DEPARTMENT: General X-ray: Exam(s) Completed: Chest X-Ray PERIPHERAL IV DATA: Not applicable SIGNED BY: RT Araceli(R) August 25, 2021 3:12 PM documented in this encounterUniversity Hospitals Cleveland Medical Center03-03-2022 Miscellaneous Notes* Telephone Encounter - Nay Cottrell RN - 08/05/2021 9:53 AM EST Spoke to Evelyn with [facility]. Reviewed all lab orders provider is requesting as well as INR stat order. Evelyn verbalizes understanding. Nay Cottrell RN * Telephone Encounter - Usman Dunn RN - 08/05/2021 9:42 AM EST Deisy- [facility]- phoned to confirm lab orders. Received all the orders except the INR. Reports nurseis at patient's home now. Will call nurse and have her get the INR also. documented in this encounterUniversity Hospitals Cleveland Medical Center03-01-2022 Miscellaneous Notes* Telephone Encounter - KASSIE Alvarez - 08/03/2021 3:00 PM EST Aníbal spoke with patient and provided her with [employer] phone number to check on help with lovenox cost. Patient notes that she is checking with her daughter right now and seeing if she can loanher money to machine operator hop picker a few days worth of Lovenox. [...] to take lovenox. * Telephone Encounter - Christopher Bonilla MD - 08/03/2021 2:46 PM EST Thank you * Telephone Encounter - Debbie Long Ma - 08/03/2021 2:32 PM EST Spoke with pharmacist. One day's worth is 21.54. Patient will try to get a few days worth. Can we see if there is any help to cover cost of co-pay? * Telephone Encounter - Christopher Bonilla MD - 08/03/2021 2:13 PM EST [...] order for tomorrow * Telephone Encounter - Christopher Bonilla MD - 08/03/2021 1:13 PM EST [...] to please advise. Patient will check with HH to see if they will draw her INR tomorrow. Asking if they are not coming tomorrow, can she go to the lab before her appt? Please phone patient with reply. * Telephone Encounter - Debbie Long Ma - 08/02/2021 4:52 PM EST Orders faxed to [facility]. Spoke with pt. Advised of dosage instructions. Pt states that she has 2 injections left and cannot afford the co-pay for another refill. Pt has appointment on Weds. * Telephone Encounter - Christopher Bonilla MD - 08/02/2021 4:39 PM EST Continue lovenox. 6 mg today and tomorrow. Recheck Wed * Telephone Encounter - Airam Ayon RN - 08/02/2021 3:38 PM EST Last INR: INR (POCT) 1.5 EXT 08/02/2021 Current dose of coumadin is: 4 mg Coumadin Mon/Wed/ Fri 2 mg all other days AND Lovenox 60 mg twicedaily Last date of dose change: 07/28/21 Previous INR (date and result): 07/30/21 1.3 EXT Received additional 2 mg Coumadin that day Additional Clinical Information or narrative: Please call [facility] at [phone] by 4 PM or Fax new orders to [phone] after 4PM. documented in this encounter[facility] History of Present illness Narrative* Ni Irene RT(R) - 07/02/2021 2:20 PM EST Radiology Service Progress Note PATIENT NAME: Libra Ceja DATE OF SERVICE: July 02, 2021 TIME: 2:05 PM PATIENT IDENTITY VERIFICATION COMPLETED USING TWO [...] IMPLANT DATA REVIEWED: Not Applicable RADIOLOGY DEPARTMENT: General X-ray: Exam(s) Completed: Chest X-Ray rt decubitus 1v PERIPHERAL IV DATA: Not applicable SIGNED BY: RT Mellisa(R) July 02, 2021 2:05 PM documented in this encounterUniversity [facility]01-14-2022 History of Present illness Narrative* Maureen Horan RT(R) - 06/18/2021 1:50 PM EST Radiology Service Progress Note PATIENT NAME: Libra Ceja DATE OF SERVICE: June 18, 2021 TIME: 1:46 PM PATIENT IDENTITY VERIFICATION COMPLETED USING TWO [...] IMPLANT DATA REVIEWED: Not Applicable RADIOLOGY DEPARTMENT: General X-ray: Exam(s) Completed: Chest X-Ray PERIPHERAL IV DATA: Not applicable SIGNED BY: RT Ho(R) June 18, 2021 1:46 PM documented in this encounterUniversity [facility]11-30-2020 History of Present illness Narrative* Ni IreneRt)Bam - 05/04/2020 3:30 PM EST Radiology Service Progress Note PATIENT NAME: Libra Ceja DATE OF SERVICE: May 04, 2020 TIME: 3:34 PM PATIENT IDENTITY VERIFICATION COMPLETED USING TWO [...] IMPLANT DATA REVIEWED: Not Applicable RADIOLOGY DEPARTMENT: General X-ray: Exam(s) Completed: Chest X-Ray PERIPHERAL IV DATA: Not applicable SIGNED BY: RT Mellisa May 04, 2020 3:34 PM documented in this encounterUniversity [facility]10-19-2020 History of Past illness Narrative* Problem Noted [...] of this encounter (statuses as of 08/25/2021) [facility] Narrative* Problem Noted [...] of this encounter (statuses as of 08/25/2021) [facility] Narrative* Problem Noted [...] of this encounter (statuses as of 08/31/2021) [facility] Narrative* Problem Noted [...] of this encounter (statuses as of 09/09/2021) [facility] Narrative* Problem Noted [...] of this encounter (statuses as of 09/16/2021) [facility] Narrative* Problem Noted [...] of this encounter (statuses as of 09/20/2021) [facility] Narrative* Problem Noted [...] of this encounter (statuses as of 09/27/2021) [facility] Narrative* Problem Noted [...] of this encounter (statuses as of 10/04/2021) [facility] Narrative* Problem Noted [...] of this encounter (statuses as of 10/04/2021) [facility] Narrative* Problem Noted [...] of this encounter (statuses as of 10/05/2021) [facility] Narrative* Problem Noted [...] of this encounter (statuses as of 10/06/2021) [facility] Narrative* Problem Noted [...] of this encounter (statuses as of 10/11/2021) [facility] Narrative* Problem Noted [...] of this encounter (statuses as of 10/11/2021) [facility] Narrative* Problem Noted [...] of this encounter (statuses as of 10/18/2021) [facility] Narrative* Problem Noted [...] of this encounter (statuses as of 10/25/2021) [facility] Narrative* Problem Noted [...] of this encounter (statuses as of 11/02/2021) [facility] Narrative* Problem Noted [...] of this encounter (statuses as of 11/04/2021) [place] [address]-19-2020 History of Past illness Narrative* Problem Noted [...] of this encounter (statuses as of 11/08/2021) [facility] Narrative* Problem Noted [...] of this encounter (statuses as of 11/09/2021) [facility] Narrative* Problem Noted [...] of this encounter (statuses as of 11/18/2021) [facility] Narrative* Problem Noted [...] of this encounter (statuses as of 12/16/2021) [facility] Narrative* Problem Noted [...] of this encounter (statuses as of 12/20/2021) [facility] Narrative* Problem Noted [...] of this encounter (statuses as of 12/20/2021) [facility] Narrative* Problem Noted [...] of this encounter (statuses as of 01/05/2022) [facility] Narrative* Problem Noted [...] of this encounter (statuses as of 01/14/2022) [facility] Narrative* Problem Noted [...] of this encounter (statuses as of 01/14/2022) [facility] Narrative* Problem Noted [...] of this encounter (statuses as of 02/03/2022) [facility] Narrative* Problem Noted [...] of this encounter (statuses as of 02/08/2022) [facility] Narrative* Problem Noted [...] of this encounter (statuses as of 02/09/2022) [facility] Narrative* Problem Noted [...] of this encounter (statuses as of 02/09/2022) [facility] Narrative* Problem Noted [...] of this encounter (statuses as of 02/10/2022) [facility] Narrative* Problem Noted [...] of this encounter (statuses as of 02/10/2022) [facility] Narrative* Problem Noted [...] of this encounter (statuses as of 02/12/2022) [facility] Narrative* Problem Noted [...] of this encounter (statuses as of 02/14/2022) [facility] Narrative* Problem Noted [...] of this encounter (statuses as of 02/15/2022) [facility] Narrative* Problem Noted [...] of this encounter (statuses as of 02/15/2022) [facility] Narrative* Problem Noted [...] of this encounter (statuses as of 02/16/2022) [facility] Narrative* Problem Noted [...] of this encounter (statuses as of 02/17/2022) [facility] Narrative* Problem Noted [...] of this encounter (statuses as of 02/18/2022) [facility] Narrative* Problem Noted [...] of this encounter (statuses as of 02/21/2022) [facility] Narrative* Problem Noted [...] of this encounter (statuses as of 02/22/2022) [facility] Narrative* Problem Noted [...] of this encounter (statuses as of 02/22/2022) [place] [address]-19-2020 History of Past illness Narrative* Problem Noted [...] of this encounter (statuses as of 02/25/2022) [facility] N[facility]* Problem Noted [...] of this encounter (statuses as of 02/25/2022) [facility] Narrative* Problem Noted [...] of this encounter (statuses as of 03/03/2022) [facility] Narrative* Problem Noted [...] of this encounter (statuses as of 03/03/2022) [facility] Narrative* Problem Noted [...] of this encounter (statuses as of 03/08/2022) [facility] Narrative* Problem Noted [...] of this encounter (statuses as of 03/08/2022) [facility] Narrative* Problem Noted [...] of this encounter (statuses as of 03/08/2022) [facility] Narrative* Problem Noted [...] of this encounter (statuses as of 03/15/2022) [facility] Narrative* Problem Noted [...] of this encounter (statuses as of 03/16/2022) [facility] Narrative* Problem Noted [...] of this encounter (statuses as of 03/22/2022) [facility] Narrative* Problem Noted [...] of this encounter (statuses as of 03/24/2022) [facility] Narrative* Problem Noted [...] of this encounter (statuses as of 03/29/2022) [facility] Narrative* Problem Noted [...] of this encounter (statuses as of 04/05/2022) [facility] CenterDis[facility] summary Author Christine Borges [facility] Note Date/Time January 25, 2025 1: 44pm [facility] Medical Records Department [address] [place] [address] Instructions for Home/Discharge Instructions 01/25/25 1342 MR#: [id number] Acct: [id number] Name: LIBRA CEJA Rep #:[id number] : [id number] From: Christine Borges MD PCP: Dr. Christopher Bonilla MD Status:ADM I N Discharge Instructions DC O2, CPAP, BIPAP needs Home O2 Discharge instructions: No Dressing / Incision Discharge Activity: Return to Normal Activity Weight Bearing Status: Weight bearing as tolerated Dressing / Incision Call your doctor if you observe: Fever of 101 or Higher, Shortness of breath, Dizziness, Swelling in the ankles and Chest pain Follow Up Care Test Results: Test results from this visit will be discussed in further detail at your follow- up appointment, if applicable. Discharge Plan Admission Admit Date/Time: 01/22/25 16:50 Primary Reason for Your Visit: COPD exacerbation, CHF exacerbation Attending Provider: Christine Borges Primary Care Provider: Christopher Bonilla Consulting Providers: Philip Kamara Instructions Patient Instructions: Heart Failure Flare Up Signs, Coping with Heart Failure, Heart Failure Dc, COPD Controlled Breathing Dc Discharge Orders/Prescriptions Prescriptions: New furosemide [Lasix] 40 mg tablet 40 mg PO BID Qty: 60 2RF potassium chloride [Klor-Con M20] 20 mEq tablet,ER particles/crystals 20 meq PO DAILY Qty: 30 2RF prednisone 20 mg tablet 40 mg PO DAILY Qty: 10 0RF Continued multivitamin Tablet 1 tab PO DAILY calcium carbonate 600 mg calcium (1,500 mg) tablet 600 mg PO DAILY albuterol sulfate 90 mcg/actuation HFA aerosol inhaler 2 puff INHALATION Q4H PRN (Reason: SOB) omeprazole 20 mg capsule,delayed release(DR/EC) 20 mg PO BID potassium chloride 20 mEq tablet extended release 20 meq PO QDAY warfarin 3 mg tablet 3 mg PO .COMPLEX Rx Instructions: TAKE ONE, 3 MG TABLET ON MONDAY, MONDAY, MONDAY, MONDAY, AND MONDAY; warfarin 2 mg tablet See Rx Instructions PO .COMPLEX Rx Instructions: TAKE 1 TABLET BY MOUTH ON MONDAY AND MONDAY AND TAKE 3 MG ALL OTHER DAYS OR DIRECTED PENDING LAB RESULTS metoprolol tartrate 25 mg tablet 25 mg PO BID fluticasone propionate 50 mcg/actuation spray,suspension 1 - 2 spray INTRANASAL DAILY diltiazem HCl 240 mg capsule,extended release 24hr 240 mg PO DAILY Qty: 90 3RF Rx Instructions: TAKE 1 CAPSULE EVERY DAY Discontinued furosemide 40 mg tablet 40 mg PO QDAY PRN (Reason: diuretic) Patient Comments: DOES NOT TAKE ALL THE TIME ONLY WHEN SHE FEELS LIKE SHE NEEDS IT OF 01/22/2025 amiodarone 200 mg tablet 100 mg PO DAILY Qty: 45 3RF Referrals / Follow Up: Christopher Bonilla MD [Primary Care Provider] - Within 1 Week Disposition Disposition (needs filled in before D/C Order can be placed): Home, Self Care 01/25/25 1344<Electronically signed by Christine Borges MD>Christine Borges MD CC: Dr. Philip Kamara, DO; Dr. Christopher Bonilla MD ~ Signed [facility] Work Phone: evaluation note* Diagnosis Pleural effusion- Primary Unspecified pleural effusion documented in this encounter [facility] note* Diagnosis Paroxysmal atrial fibrillation (HCC) Atrial fibrillation documented in this encounter [facility] note* Diagnosis Onset Date Resolution Status HLD (hyperlipidemia) acute HTN (hypertension) acute Pleural effusion acute Shortness of breath resolved Atrial fibrillation with RVR resolved Hypoxia resolved Pleural effusion on right re solved Acute respiratory failure with hypoxia resolved Hypokalemia resolved Pleural effusion on right re solved Acute respiratory failure with hypoxia resolved Pleural effusion on right re solved Atrial fibrillation acute Congestive heart failure (CHF) acute Pleural effusion acute Atrial fibrillation acute Congestive heart failure (CHF) acute HLD (hyperlipidemia) acute HTN (hypertension) acute [facility] Work Phone: evaluation note* Diagnosis Paroxysmal atrial fibrillation (HCC) Atrial fibrillation documented in this encounter [facility] note* Diagnosis Onset Date Resolution Status Atrial fibrillation with RVR resolved Hypoxia resolved Pleural effusion on right re solved Acute respiratory failure with hypoxia resolved Hypokalemia resolved Pleural effusion on right re solved Acute respiratory failure with hypoxia resolved Pleural effusion on right re solved Atrial fibrillation acute Congestive heart failure (CHF) acute Pleural effusion acute Atrial fibrillation acute Congestive heart failure (CHF) acute HLD (hyperlipidemia) acute HTN (hypertension) acute [facility] Work Phone: evaluation note* Diagnosis Paroxysmal atrial fibrillation (HCC)- Primary Atrial fibrillation documented in this encounter [facility] note* Diagnosis Paroxysmal atrial fibrillation (HCC) Atrial fibrillation documented in this encounter [facility] note* Diagnosis Thyroid nodule- Primary Nontoxic uninodular goiter History of colonic polyps Personal history of colonic polyps Paroxysmal atrial fibrillation (HCC) Atrial fibrillation Hypertension, essential Unspecified essential hypertension Pulmonary hypertension (HCC) Other chronic pulmonary heart diseases Hyperlipidemia, unspecified hyperlipidemia type Pleural effusion, right Unspecified pleural effusion Prediabetes Other abnormal glucose Medication monitoring encounter Encounter for therapeutic drug monitoring [facility] Diagnosis Renal insufficiency- Primary Unspecified disorder of kidney and ureter Prediabetes Other abnormal glucose [facility] Diagnosis Paroxysmal atrial fibrillation (HCC) Atrial fibrillation [facility]* Diagnosis Paroxysmal atrial fibrillation (HCC) Atrial fibrillation [facility]* Diagnosis Onset Date Resolution Status Acute respiratory failure with hypoxia resolved Hypokalemia resolved Pleural effusion on right re solved Acute respiratory failure with hypoxia resolved Pleural effusion on right re solved Atrial fibrillation acute Congestive heart failure (CHF) acute Pleural effusion acute Atrial fibrillation acute Congestive heart failure (CHF) acute HLD (hyperlipidemia) acute HTN (hypertension) acute [facility] Work Phone: Evaluation note* Diagnosis Paroxysmal atrial fibrillation (HCC) Atrial fibrillation [facility] Diagnosis Hypertension, essential- Primary Unspecified essential [...] diastolic heart failure [facility]* Diagnosis Onset Date Resolution Status Atrial fibrillation acute Congestive heart failure (CHF) acute HLD (hyperlipidemia) acute HTN (hypertension) acute Atrial fibrillation acute Congestive heart failure (CHF) acute Pleural effusion acute Bacteremia due to Gram-negative bacteria acute Dehydration acute Empyema acute Hypokalemia acute Hypophosphatemia acute Hypoxia acute Leukocytosis acute Pleural effusion on right ac huslia Pneumonia acute [facility] Work Phone: Evaluation note* Diagnosis Paroxysmal atrial fibrillation (HCC) Atrial fibrillation [facility] Diagnosis Pleural effusion- Primary Unspecified pleural effusion [facility] Diagnosis Paroxysmal atrial fibrillation (HCC) Atrial fibrillation [facility]* Diagnosis Paroxysmal atrial fibrillation (HCC)- Primary Atrial fibrillation [facility]* Diagnosis Onset Date Resolution Status Congestive heart failure (CHF) acute Pleural effusion acute Bacteremia due to Gram-negative bacteria acute Dehydration acute Hypokalemia acute Hypophosphatemia acute Hypoxia acute Leukocytosis acute Pleural effusion on right ac [place] Pneumonia acute Empyema resolved Congestive heart failure (CHF) acute Essential hypertension acute Paroxysmal atrial fibrillation acute Pleural effusion acute Shortness of breath acute Paroxysmal atrial fibrillation acute Pleural effusion on right ac [place] Empyema resolved [facility] Work Phone: Evaluation note* Diagnosis Atrial fibrillation, chronic (HCC)- Primary Atrial fibrillation [facility] Diagnosis Paroxysmal atrial fibrillation (HCC)- Primary Atrial fibrillation Pleural effusion, right Unspecified pleural effusion Renal insufficiency Unspecified disorder of kidney and ureter Acute heart failure with preserved ejection fraction (HCC) Hypertension, essential Unspecified essential hypertension Chronic anticoagulation Long-term (current) use of anticoagulants pasturella bactermia Bacteremia [facility]* Diagnosis Hyperlipidemia, unspecified hyperlipidemia type- Primary [...] disorders of kidney [facility]* Diagnosis Paroxysmal atrial fibrillation (HCC) Atrial fibrillation [facility] Diagnosis Renal insufficiency- Primary Unspecified disorder of kidney and ureter [facility]* Diagnosis Onset Date Resolution Status Bacteremia due to Gram-negative bacteria acute Dehydration acute Hypokalemia acute Hypophosphatemia acute Hypoxia acute Leukocytosis acute Pleural effusion on right ac [place] Pneumonia acute Empyema resolved Congestive heart failure (CHF) acute Essential hypertension acute Paroxysmal atrial fibrillation acute Pleural effusion acute Shortness of breath acute Paroxysmal atrial fibrillation acute Pleural effusion on right ac [place] Empyema resolved [facility] Work Phone: Evaluation note* Diagnosis Rib pain- Primary Chest pain, unspecified [facility]* Diagnosis Multiple thyroid nodules- Primary Nontoxic multinodular goiter documented in this encounter [facility] note* Diagnosis [facility]- [facility] Paroxysmal atrial fibrillation (HCC) Atrial fibrillation [facility] Diagnosis Paroxysmal atrial fibrillation (HCC)- Primary Atrial fibrillation [facility] Onset Date Resolution Status Pleural effusion acute Empyema resolved Goiter acute Congestive heart failure (CHF) acute Essential hypertension acute Paroxysmal atrial fibrillation acute Pleural effusion acute Goiter acute [facility] Work Phone: Evaluation note* Diagnosis Compression deformity of vertebra- Primary Other acquired deformity of back or spine Centrilobular emphysema (HCC) Other emphysema Pulmonary hypertension (HCC) Other chronic pulmonary heart diseases Paroxysmal atrial fibrillation (HCC) Atrial fibrillation Rheumatoid arthritis, involving unspecified site, unspecified whether rheumatoid factor present (HCC) Chronic respiratory failure with hypoxia (HCC) Chronic respiratory failure [facility] Compression deformity of vertebra- Primary Other acquired deformity of back or spine [facility] Diagnosis Compression deformity of vertebra- Primary Other acquired deformity of back or spine [facility] Diagnosis Compression deformity of vertebra- Primary Other acquired deformity of back or spine Renal mass Unspecified disorder of kidney and ureter Liver mass Unspecified disorder of liver [facility] Diagnosis Epigastric pain- Primary Abdominal pain, epigastric Abdominal swelling, generalized Abdominal or pelvic swelling, mass, or lump, generalized Compression deformity of vertebra Other acquired deformity of back or spine [facility] Elevated alkaline phosphatase level- Primary Other nonspecific abnormal serum enzyme levels [facility] Diagnosis Compression deformity of vertebra Other acquired deformity of back or spine [facility] Diagnosis Paroxysmal atrial fibrillation (HCC) Atrial fibrillation [facility] Diagnosis Elevated alkaline phosphatase level- Primary Other nonspecific abnormal serum enzyme levels [facility] Diagnosis Paroxysmal atrial fibrillation (HCC) Atrial fibrillation [facility] Diagnosis Paroxysmal atrial fibrillation (HCC) Atrial fibrillation [facility] Diagnosis Chronic anticoagulation- Primary Long-term (current) [...] and gas pain [facility] Diagnosis Paroxysmal atrial fibrillation (HCC) Atrial fibrillation [facility] Diagnosis Paroxysmal atrial fibrillation (HCC) Atrial fibrillation [facility] Diagnosis Onset Date Resolution Status Pleural effusion acute Empyema resolved Iron deficiency anemia [facility] Work Phone: evaluation note* Diagnosis GERD without esophagitis Esophageal reflux [facility] Diagnosis Herpes zoster without complication- Primary Herpes zoster without mention of complication Rash Rash and other nonspecific skin eruption [facility] Diagnosis Paroxysmal atrial fibrillation (HCC)- Primary Atrial fibrillation [facility] Diagnosis Paroxysmal atrial fibrillation (HCC)- Primary Atrial fibrillation [facility]* Diagnosis Chronic anticoagulation- Primary Long-term (current) use of anticoagulants Paroxysmal atrial fibrillation (HCC) Atrial fibrillation [facility] Diagnosis Onset Date Resolution Status Pleural effusion acute Empyema resolved Iron deficiency anemia acute Bloating acute Iron deficiency anemia acute Bloating acute Iron deficiency anemia [facility] Work Phone: evaluation note* Diagnosis 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 Mata's esophagus [facility] Diagnosis Paroxysmal atrial fibrillation (HCC)- Primary Atrial fibrillation documented in this encounter [facility] note* Diagnosis Paroxysmal atrial fibrillation (HCC)- Primary Atrial fibrillation [facility] Diagnosis Paroxysmal atrial fibrillation (HCC)- Primary Atrial fibrillation [facility]* Diagnosis Atrial fibrillation, chronic (HCC)- Primary Atrial fibrillation documented in this encounter [facility] note* Diagnosis Paroxysmal atrial fibrillation (HCC)- Primary Atrial fibrillation documented in this encounter [facility] note* Diagnosis Renal mass Unspecified disorder of kidney and ureter Liver mass Unspecified disorder of liver documented in this encounter [facility] note* Diagnosis Elevated alkaline phosphatase level Other nonspecific abnormal serum enzyme levels documented in this encounter [facility] note* Diagnosis Pathological fracture, other site, initial encounter for fracture documented in this encounter [facility] note* Diagnosis Thyroid nodule Nontoxic uninodular goiter documented in this encounter [facility] note* Diagnosis Coagulopathy (HCC)- Primary Other and unspecified coagulation defects Paroxysmal atrial fibrillation (HCC) Atrial fibrillation documented in this encounter [facility] note* Diagnosis Paroxysmal atrial fibrillation (HCC)- Primary Atrial fibrillation documented in this encounter [facility] note* Diagnosis Paroxysmal atrial fibrillation (HCC)- Primary [...] Other abnormal glucose documented in this encounter [facility] noteNo assessment information [facility] Work Phone: Evaluation [facility]* Diagnosis Onset Date Resolution Status Multiple thyroid nodules [facility] Work Phone: Evaluation note* Diagnosis Pulmonary emphysema, unspecified emphysema type (HCC)- Primary Paroxysmal atrial fibrillation (HCC) Atrial fibrillation [facility] Diagnosis Paroxysmal atrial fibrillation (HCC)- Primary Atrial fibrillation documented in this encounter [facility] note* Diagnosis Chronic obstructive pulmonary disease with acute lower respiratory infection (HCC)- Primary Obstructive chronic bronchitis with exacerbation Paroxysmal atrial fibrillation (HCC) Atrial fibrillation documented in this encounter [facility] note* Diagnosis Hypertension, essential- Primary Unspecified essential hypertension Paroxysmal atrial fibrillation (HCC) Atrial fibrillation documented in this encounter [facility] note* Diagnosis Paroxysmal atrial fibrillation (HCC)- Primary Atrial fibrillation documented in this encounter [facility] note* Diagnosis Paroxysmal atrial fibrillation (HCC)- Primary Atrial fibrillation documented in this encounter [facility] note* Diagnosis Anxiety with depression- Primary Paroxysmal atrial fibrillation (HCC) Atrial fibrillation Hypertension, essential Unspecified essential hypertension Pulmonary hypertension (HCC) Other chronic pulmonary heart diseases Pulmonary emphysema, unspecified emphysema type (HCC) Gastroesophageal reflux disease without esophagitis Esophageal reflux Prediabetes Other abnormal glucose documented in this encounter [facility] note* Diagnosis Compression deformity of vertebra Other acquired deformity of back or spine documented in this encounter [facility] note* Diagnosis Paroxysmal atrial fibrillation (HCC)- Primary Atrial fibrillation documented in this encounter [facility] note* Diagnosis GERD without esophagitis Esophageal reflux documented in this encounter [facility] note* Diagnosis Abdominal swelling, generalized Abdominal or pelvic swelling, mass, or lump, generalized Epigastric pain Abdominal pain, epigastric documented in this encounter [facility] note* Diagnosis Paroxysmal atrial fibrillation (HCC)- Primary Atrial fibrillation documented in this encounter [facility] note* Diagnosis Upper back pain documented in this encounter [facility] note* Diagnosis Rib pain Chest pain, unspecified documented in this encounter [facility] note* Diagnosis Parapneumonic effusion Other specified forms of effusion, except tuberculous documented in this encounter [facility] note* Diagnosis SOB (shortness of breath) Shortness of breath Pleural effusion Unspecified pleural effusion Pleural effusion, right Unspecified pleural effusion documented in this encounter [facility] note* Diagnosis Pleural effusion, right Unspecified pleural effusion documented in this encounter [facility] note* Diagnosis Pleural effusion, right Unspecified pleural effusion documented in this encounter [facility] note* Diagnosis Dyspnea, unspecified type documented in this encounter [facility] note* Diagnosis Recurrent right pleural effusion Unspecified pleural effusion documented in this encounter [facility] note* Diagnosis Cough documented in this encounter [facility] note* Diagnosis Atrial fibrillation, chronic (HCC)- Primary Atrial fibrillation documented in this encounter [facility] note* Diagnosis Hypertension, essential- Primary Unspecified essential hypertension Paroxysmal atrial fibrillation (HCC) Atrial fibrillation 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) Hyperlipidemia, unspecified hyperlipidemia type Chronic obstructive pulmonary disease with acute lower respiratory infection (HCC) Obstructive chronic bronchitis with exacerbation Stage 3 chronic kidney disease, unspecified whether stage 3a or 3b CKD (HCC) 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 Mata's esophagus Marfan's syndrome Rheumatoid arthritis, involving unspecified site, unspecified whether rheumatoid factor present (HCC) History of polymyalgia rheumatica Personal history of other musculoskeletal disorders Chronic anticoagulation Long-term (current) use of anticoagulants Prediabetes Other abnormal glucose Thyroid nodule Nontoxic uninodular goiter [facility]* Diagnosis Hyperlipidemia, unspecified hyperlipidemia type- Primary [facility]* Diagnosis Paroxysmal atrial fibrillation (HCC)- Primary Atrial fibrillation documented in this encounter [facility] note* Diagnosis Hypertension, essential Unspecified essential hypertension Paroxysmal atrial fibrillation (HCC) Atrial fibrillation documented in this encounter [facility] note* Diagnosis Onset Date Resolution Status Admit Date Congestive heart failure (CHF) acute December 05, 2024 2:57pm Essential hypertension acute Ju 2024 2:57pm Mitral valve insufficiency acute December 05, 2024 2:57pm Paroxysmal atrial fibrillation acute December 05, 2024 2:57pm Pleural effusion acute December 2:57pm HLD (hyperlipidemia) inactive December 05, 2024 2:57pm [facility] Work Phone: Evaluation note* Diagnosis Medicare annual wellness visit, subsequent- Primary Routine general medical examination at a health care facility Screening for depression Encounter for screening examination for other mental health and behavioral disorders GERD without esophagitis Esophageal reflux Fatigue, unspecified type Pure hypercholesterolemia Paroxysmal atrial fibrillation (HCC) Atrial fibrillation Hypertension, essential Unspecified essential hypertension Pulmonary hypertension (HCC) Other chronic pulmonary heart diseases Chronic obstructive pulmonary disease, unspecified COPD type (HCC) Stage 3 chronic kidney disease, unspecified whether stage 3a or 3b CKD (HCC) Thyroid nodule Nontoxic uninodular goiter 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 anemia secondary to blood loss (chronic) Rheumatoid arthritis, involving unspecified site, unspecified whether rheumatoid factor present (HCC) Chronic anticoagulation Long-term (current) use of anticoagulants Prediabetes Other abnormal glucose Hypotension, unspecified hypotension type [facility]* Diagnosis Pulmonary emphysema, unspecified emphysema type (HCC) documented in this encounter [facility] note* Diagnosis Chronic obstructive pulmonary disease, unspecified COPD type (HCC)- Primary Acute on chronic congestive heart failure, unspecified heart failure type (HCC) Pulmonary emphysema, unspecified emphysema type (HCC) Hypertension, essential Unspecified essential hypertension Pulmonary hypertension (HCC) Other chronic pulmonary heart diseases documented in this encounter [facility] Discharge instructionsAdditional Instructions Follow-up with primary care physician. Make sure that you drink plenty of fluids. Return back to the ED symptoms change or worsen.[facility] Work Phone: Patient's home Plan of care note* Visit Details Visit Type -SN SOC Discipline -Long Term Problems Problem Description Start Date Status Goals [...] all medications you are taking -- even kenw-gfr-wrsaiwr medicines -- with your doctor and pharmacist [...] after incontinence episode. documented in this encounter [facility] Plan of care note* Visit Details [...] as needed Completed Weight Description: Notify Dr. Kori of weight change of 4lbs. Problem:Physician Specific [...] to call provider. [facility]* Visit Details Visit Type -SCHOOL MANAGER ROUTINE Discipline -Physical Therapy Problems Problem [...] to call provider. documented in this encounter [facility] Plan of care note* Visit Details Visit Type -SN ROUTINE Discipline -Long Term Problems Problem Description Start Date Status Goals [...] all medications you are taking -- even radv-nbk-ivldytr medicines -- with your doctor and pharmacist [...] scheduled bathroom trips. documented in this encounter [facility] Plan of care note* Visit Details [...] community ambulation, in order to return to pl, to be achieved by 03/12/22. PT Impaired [...] to call provider. [facility]* Visit Details Visit Type -SN ROUTINE Discipline -Long Term Problems Problem Description Start Date Status Goals [...] all medications you are taking -- even mrsi-bjp-lzkyylg medicines -- with your doctor and pharmacist [...] certification period Completed documented in this encounter [facility] Plan of care note* Visit Details Visit Type -SN ROUTINE Discipline -Long Term Problems Problem Description Start Date Status Goals [...] strategies for improving respiratory status by 03/01/22. Respiratory Disease Completed Yes Improved management of Heart Failure Description: Improve HF management as evidenced by stable weights, reduced edema, and less symptoms reported by patient to be achieved by 03/01/22. Heart Failure Completed Yes Demonstrate understanding of [...] all medications you are taking -- even dvlr-gsh-limczqa medicines -- with your doctor and pharmacist [...] pulmonary disease management. documented in this encounter [facility] home Plan of care note* Visit Details Visit Type -SN AGENCY DC WO VISIT Discipline -Long Term Problems Problem Description Start Date Status Goals [...] all medications you are taking -- even srjr-zxo-zlynjpp medicines -- with your doctor and pharmacist [...] without ongoing services [facility] this encounter [facility] Author John Last [facility] Note Date/Time March 04, 2025 1:50pm [facility] [address] [place] [address] OFFICE VISIT Date of Service: 03/04/25 MR#: [id number] Acct: [id number] Name: LIBRA CEJA Rep #: [id number] : 1945 Provider: FELIPE Duran Age/Sex: 79/F Location: [facility] Status: Signed HPI HPI History of Present Illness Details: Libra Ceja is a 79-year-old female who presents to office today for hospital follow-up. She was admitted to [facility] 01/22 - 01/25/2025 for hypoxia due to acute exacerbation of heart failure with a preserved EF and acuteon chronic COPD exacerbation. Her BNP was noted to be elevated at 4301. She was treated with IV diuretic. CT abdomen pelvis demonstrated small right pleural effusion as well as hepatomegaly. She has a history of paroxysmal atrial fibrillation, CHF, valvular heart relatedissues, hyperlipidemia, hypertension, recurrent pleural effusion/thoracentesis, mild Marfan's disease in which she reports was diagnosed through [facility]. She was admitted to the hospital in April 2021 for managementof right sided pleural effusion and diagnostic and therapeutic right-sided thoracentesis was ordered in which 1200 cc of fluid was aspirated. Echocardiogram during that admission demonstrated an EF of 55%. She presented to [facility] in July 2023 with concerns of hypoxia and underwent CT chest which demonstrated moderate right-sided pleural effusion withcompressive atelectasis along with left renal infarct and splenic infarct. Her INR was subtherapeutic on arrival and it was felt her embolic event was related to her atrial fibrillation with subtherapeutic INR. She underwent thoracentesisduring that admission with removal of 670 cc of fluid. She did develop atrial fibrillation with RVR while hospitalized and was temporarily treated with diltiazem drip and then transition to metoprolol. Amiodarone was added. Upon presentation today, patient reports she initially presented to the ER with concerns of fever and chills. She reports her fever and chills resolved and havenot reoccurred. She did notice SOB prior to hospitalization. Her SOB is reportedto have improved but remains noticed with walking and going up and down the stairs. She reports feeling back to her baseline, the same as she felt 6 months ago. She notices b/l ankle edema that was "bad" prior to hospital, improved while hospitalized and after; however, has worsened over the last couple of weeks. He LE edema is noted to be worse in the evening. She is up 8lbs since discharge from hospital. She was taking furosemide 40mg BID upon discharge from the hospital. shortly after hospital stay, she followed up with her PCP who decreased it to 40mg in the morning and 20mg in afternoon secondary to dizziness. She doesn't always take her second dose. Further ROS below. 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: No Is patient in pain?: No Allergies pneumococcal vaccine (From Prevnar 13 (PF)) Allergy (Severe, Verified 03/04/25 13:03) Rash Latex, Natural Rubber Allergy (Verified 03/04/25 13:03) Rash rosuvastatin calcium (From Crestor) Allergy (Verified 03/04/25 13:03) myalgias ibuprofen Adverse Reaction (Verified 03/04/25 13:03) Nausea Medications ?Medication ?Instructions ?Recorded ?Confirmed ?Type calcium carbonate 600 mg PO DAILY SUPPLEMENT 0 06/19/19 03/04/25 History multivitamin 1 tab PO DAILY SUPPLEMENT 03/04/25 History albuterol sulfate 90 mcg/actuation 2 puff inhalation Q 4H PRN SOB 01/09/20 03/04/25 History aerosol inhaler omeprazole 20 mg capsule,delayed 20 mg PO BID 12/05/24 03/04/25 History release fluticasone propionate 50 1 - 2 spray intranasal DAILY 01/22/25 03/04/25 History mcg/actuation nasal health maintnance spray,suspension warfarin 2 mg tablet See Rx Instructions PO .COMP ESTRELLA 01/22/25 03/04/25 History warfarin 3 mg tablet 3 mg PO .COMPLEX 01/22/25 History amiodarone 200 mg tablet 100 mg (1/2 x 200 mg) PO TEJ LY #45 02/24/25 03/04/25 Rx tabs furosemide 40 mg tablet (Lasix) 40 mg PO QAM #60 tabs 03/04/25 03/04/25 Rx metoprolol tartrate 50 mg tablet 50 mg PO BID #180 tab s 03/04/25 03/04/25 Rx spironolactone 25 mg tablet 25 mg PO QDAY #30 tabs 03/04/25 Rx Ejection fraction %: 60 Have you fallen in the past year?: No [facility] Medical History CHF exacerbation History of atrial fibrillation Acute exacerbation of chronic obstructive pulmonary disease Chronic anticoagulation Hypoxia Mitral valve insufficiency Mata's esophagus with dysplasia Wears glasses Ambulates with cane Arthritis High cholesterol Difficulty chewing Shortness of breath on exertion History of echocardiogram Cardiology follow-up encounter Bloating Abdominal pain 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 Paroxysmal atrial fibrillation Essential hypertension Mixed hyperlipidemia Chronic atrial fibrillation with RVR Exudative pleural effusion Renal cyst Hepatic congestion Recurrent pleural effusion Leukocytosis Embolic infarction Renal infarction Splenic infarction Substance abuse Goiter Non-smoker Atrial fibrillation Congestive heart failure (CHF) Hypertension Rheumatoid arthritis COPD (chronic obstructive pulmonary disease) Pleural effusion Rheumatoid arthritis Paroxysmal atrial fibrillation with RVR Subtherapeutic international normalized ratio (INR) Chronic anticoagulation Pulmonary hypertension Hypokalemia Hyponatremia PNA (pneumonia) COPD (chronic obstructive pulmonary disease) PAF (paroxysmal atrial fibrillation) HTN (hypertension) GERD (gastroesophageal reflux disease) HLD (hyperlipidemia) Marfans syndrome Surgical History History of eye surgery History of hysterectomy Family History Mother Diabetes Colon cancer Marfan syndrome Sister Diabetes Hypertension Brother Marfan syndrome COPD (chronic obstructive pulmonary disease) Brother Marfan syndrome Father Gastric ulcer GERD (gastroesophageal reflux disease) Social History household members: spouse and children housing: house Smoking Status: Never smoker alcohol intake: never substance use type: does not use caffeine: Yes Type: coffee Number of servings: 4 ROS Const Const: Negative for fatigue, weakness, headache(s) or frequent falls Eyes Eyes: Negative for blurry vision ENT ENT: Negative for headache(s), dizziness or Nosebleed/epistaxis Cardio Chest Pain: No Palpitations: No Edema: Bilateral Muscle aches with walking: None Resp Respiratory: Positive for SOB with activity and SOB at rest; Negative for SOB orthopnea\\SOB lying down GI GI: Negative nausea, vomiting, heartburn, bright, red blood in stools or black,tarry stools : Negative for hematuria Neuro Neuro: Negative for dizziness, lightheadedness, near syncope, syncope, frequent falls, headache(s), weakness or blurry vision Endo Endo: Negative for fatigue Cardiology Exam Const Appearance: cooperative, comfortable, no acute distress and well developed; Negative diaphoretic or ill appearing Nutritional Appearance: average body habitus Orientation: alert and oriented x3 Ambulating without assistive device Head Head: normal to inspection, normocephalic and atraumatic Ears: hearing grossly normal bilaterally Nose: external nose normal and Negative epistaxis Face and Sinus: face symmetric Eyes General: appearance normal, both eyes and all related structures Eyelids: eyelids normal Conjunctivae: conjunctivae normal; Negative scleral icterus EOM: EOM intact bilaterally Neck Neck: no JVD Carotids: normal carotid upstroke; Negative bruit Neck Mass: Negative Neck mass Chest Chest inspection: normal respiratory effort; Negative respiratory distress, audible wheezes or tachypneic Auscultation: Bilateral: Crackles Cardio Rate: tachycardic Rhythm: irregularly irregular Heart sounds: S1 normal and S2 normal; Negative rub, gallop or murmur Neuro General: patient alert, patient awake, patient oriented x3 and moves all extremities Skin Skin: no rashes or lesions noted Extremities Pulses: Normal: Right Posterior Tibial Pulse, Left Posterior Tibial Pulse, RightRadial Pulse and Left Radial Pulse Lower Extremity Edema: +1: Bilateral Psych Psychological: normal affect Supplemental Info Supplemental Information Echocardiogram 12/08/2023: Interpretation Summary Normal LV size. Left ventricular systolic function is normal. The left ventricular ejection fraction is 60 %. Mild-Moderate (1-2+) anteriorly directed mitral valve insufficiency. Pulmonary artery systolic pressure is 80 mmHg. Severe pulmonary hypertension. Chest CTA 04/04/2025: Dilated loops of the ascending thoracic aorta. Enlarged central pulmonary arteries as described. Stable 4 mm noncalcified nodule in the left lower lobe. Twelve-month follow-up recommended. Echocardiogram 05/26/2019: Normal LV size. Moderate concentric left ventricular hypertrophy. Left ventricular systolic function is normal. The estimated ejection fraction is 65 %. Unable to assess diastolic dysfunction due to arrhythmia. The left atrium is moderately enlarged. The right atrium is moderately enlarged. Pulmonary artery systolic pressure is 40 mmHg. Echocardiogram from 04/27/2021: Interpretation Summary Normal LV size. Left ventricular systolic function is normal. The estimated ejection fraction is 55 %. There is moderate mitral annular calcification. Mild-Moderate (1-2+) anteriorly directed mitral valve insufficiency. Echocardiogram 07/14/21: Interpretation Summary The estimated ejection fraction is 60-65 %. No significant changes from prior echo. Echocardiogram 03/08/2022: Interpretation Summary Left ventricular systolic function is normal. The estimated ejection fraction is 60 %. The left atrium is severely enlarged. The right atrium is mildly enlarged. There is moderate to severe mitral annular calcification. Extension of the mitral annular calcification onto the base of the posterior mitral valve leaflet. The mitral papillary muscle appears thickened and/or calcified. Moderate (2+) eccentric mitral valve insufficiency. Moderate (2+) tricuspid valve insufficiency. Mild focal aortic valve calcification. Borderline enlarged aortic root. Right ventricular systolic pressure estimated to be 54 mmHg c/w pulmonary hypertension. Stage 2 diastolic dysfunction. Stress Test 01/04/2014: EXERCISE TOLERANCE TEST: The patient underwent pharmacologic (regadenoson) evaluation with a peak heart rate of 103 beats per minute (67% predicted maximum heart rate) and a peak bloodpressure of 148/68 mmHg. The baseline ECG demonstrated normal sinus rhythm. The peak pharmacologic ECG demonstrated no obvious ECG changes. There were no obvious cardiac dysrhythmias pretest, during pharmacologic infusion, or recovery. The patient had no complaint of chest discomfort during pharmacologic infusion or recovery. The examination was discontinued secondary to completion of protocol. IMPRESSION: 1. Pharmacologic (regadenoson) evaluation. 2. Peak pharmacologic ECG with no obvious ECG changes. 3. Nuclear images pending. MYOCARDIAL PERFUSION IMAGING STUDY: TECHNIQUE: The patient was injected with 12.0 mCi of Tc99m Cardiolite and subsequently restSPECT Cardiolite nuclear imaging was obtained in the horizontal long, vertical long, and short axes views. The patient underwent pharmacologic (regadenoson) evaluation with a peak heart rate of 103 beats per minute (67% predicted maximumheart rate) with a peak blood pressure of 148/68 mmHg. The patient was injectedwith 36.1 mCi of Tc99m Cardiolite and subsequently stress SPECT Cardiolite nuclear imaging was obtained in the horizontal long, vertical long, and short axes views. A gated Cardiolite study at peak stress was obtained. INTERPRETATION: Rest and stress SPECT Cardiolite nuclear imaging both demonstrate areas of extracardiac/hepatic and gastrointestinal tracer uptake near the inferior segments, which maybe somewhat more prominent following stress as opposed to rest. Otherwise, there appears to be relative uniform tracer uptake. There is end systolic thickening and brightening. The gated Cardiolite study demonstrates myocardial thickening and inward wall motion. The reported LVEF is89%. There are no myocardial perfusion changes considered diagnostic for stressinduced myocardial ischemia or previous myocardial injury/infarction. IMPRESSION: 1. Rest and stress SPECT Cardiolite nuclear imaging demonstrate relative uniform tracer uptake and myocardial perfusion appearing within normal limits with no myocardial perfusion changes considered diagnostic for stress induced myocardial ischemia or previous myocardial injury/infarction. 2. The gated Cardiolite study reports an LVEF of 89%. Diagnostics: Electrocardiogram Echocardiogram Stress Test Nuclear Medicine Chest X-Ray Chest CTA Abdomen/Pelvis CT Pulmonary: Pulmonary Function Test Pulmonary Exercise Test Past Visits: Cardiology Visit Today Assessment and Plan Assessment and Plan (1) Congestive heart failure (CHF): Status: Acute Qualifiers: Heart failure type: unspecified Heart failure chronicity: unspecified Qualified Code(s): I50.9 - Heart failure, unspecified Plan: Patient was recently hospitalized 01/22 - 01/25/2025 with acute exacerbation of her congestive heart failure. She was treated with IV diuresis and discharged on p.o. diuresis. Her diuretic was adjusted secondary to dizziness. She is short of breath, has crackles on exam and lower extremity edema. She is up 8 pounds since discharge from the hospital. It is documented that echocardiogram in the hospital similar to prior demonstrating a preserved ejection fraction of 60% with pulmonary pressure of 80 mmHg. Plan: Will obtain NT proBNP and BMP today. Recommend patient take furosemide 40mg twice a day x 5 days and then return to daily dosage. Recommend initiating spironolactone 25 mg daily. Given she was dizzy with increased dose of diuretic, we will decrease her diltiazem and increase her metoprolol for her rate control with a goal of her being able to tolerate her diuretic. Recommend patient monitor her weight daily and notify our office with a 3 pound weight gain in 24 hours or 5 pound weight gain in 1 week. Recommend patient monitor her blood pressure and her home environment. (2) Paroxysmal atrial fibrillation: Status: Acute Plan: Patient has a history of paroxysmal atrial fibrillation. EKG in office today demonstrates atrial fibrillation at a rate of 103 bpm. Uncertain if her rapid rate is secondary to fluid overload or if rapid rate is contributing to her CHF exacerbation. She is on amiodarone, diltiazem and metoprolol to tartrate. [id number] score of 5. Plan: Recommend patient continue anticoagulation and amiodarone. Recommend patient discontinue her diltiazem and increase her metoprolol to 50 mg twice daily with a goal of her being able to tolerate additional diuretic and not experience dizziness. Will obtain 24-hour Holter monitor to assess rate and rhythm after achieving euvolemia. (3) Essential hypertension: Status: Acute Plan: Patient has a history of hypertension. BP in office today 121/84. She is currently on metoprolol tartrate and diltiazem which are both also addressing her atrial fibrillation. She was taking Lasix twice a day following her hospitalization; however, dose was decreased secondary to dizziness. Plan: Recommend patient discontinue diltiazem, increase furosemide to 40 mg twice a day x 5 days and then return to daily dosing, initiate spironolactone 25mg daily. Encourage lifestyle risk factor modification. 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 Most recent TSH 12/20/2024 WNL. PFT 12/24/2024 demonstrates mild restrictive ventilatory impairment with moderate reduction in diffusing capacity. LFTs reviewed and notes alkaline phosphatase is elevated; however, AST ALT WNL. Plan: Recommend patient continue current dose of amiodarone (5) Anticoagulant long-term use: Status: Acute Plan: Hemoglobin noted to be 15.6 while hospitalized. Plan: Recommend patient continue warfarin. Orders: Orders [address] [facility] 02/28/25 I48.0 - Paroxysmal atrial fibrillation 12 Lead EKG performed by [facility] Today I48.0 - Paroxysmal atrial fibrillation Basic Metabolic Profile (BMP) Today R06.02 - Shortness of breath Pro- Brain NATRIURETIC PEPTIDE Today R06.02 - Shortness of breath Chest PA and Lateral Today I50.9 - Heart failure, unspecified, R06.02 - Shortness of breath Cardiac Holter Monitor, 24 Hrs 2 Weeks I48.91 - Unspecified atrial fibrillation Basic Metabolic Profile (BMP) 2 Weeks I50.9 - Heart failure, unspecified Medications: New spironolactone 25 mg PO QDAY 30 tabs 2RF Changed From metoprolol tartrate 25 mg PO BID To metoprolol tartrate 50 mg PO BID 180 tabs 3RF From furosemide (Lasix) 40 mg PO BID 60 tabs 2RF To furosemide (Lasix) 40mg BID x5 days starting today and then daily 40 mg PO QAM 60 tabs 2RF Discontinued potassium chloride ER Discontinued Reason: Order Completed 20 mEq PO QDAY diltiazem HCl CD TAKE 1 CAPSULE EVERY DAY Discontinued Reason: Order Completed 240 mg PO DAILY 90 caps 3RF HEART Plan 1. Would like to obtain NT proBNP, BMP and chest x-ray today as patient appearsfluid overloaded. Recommend increase her furosemide to 40 mg twice daily x 5 days and then return to daily dosing, initiate spironolactone. Diltiazem was discontinued and metoprolol was increased with goal of patient being able to tolerate diuresis without dizziness. 2. Would like to obtain 24-hour Holter monitor to assess rate and rhythm once patient is euvolemic. Patient will follow-up in 6 weeks or sooner, if needed. Thank you for allowing me to participate in the care of your patient. Please don't hesitate to call if any issues arise. This note was generated using a voice recognition system and there may be incorrect words, spelling, or punctuation that were not noted when reviewing theoffice note prior to saving. Portions of this documentation were copied and pasted from previous office visitnotes to provide a cohesive continuity of the history. The note has been reviewed, edited, and updated, as necessary. Plan Details Follow Up: 6 Weeks (SRD) Coding Level of Care Code Off vis,est,level 4 Diagnoses Congestive heart failure, unspecified HF chronicity, unspecified heart failure type I50.9 Heart failure type: unspecified Heart failure chronicity: unspecified Paroxysmal atrial fibrillation I48.0 Essential hypertension I10 FDC current use of amiodarone Z79.899 Anticoagulant long-term use Z79.01 Coding Level of Care Code Off vis,est,level 4 Diagnoses Congestive heart failure, unspecified HF chronicity, unspecified heart failure type I50.9 Heart failure type: unspecified Heart failure chronicity: unspecified Paroxysmal atrial fibrillation I48.0 Essential hypertension I10 FDC current use of amiodarone Z79.899 Anticoagulant long-term use Z79.01 Clinical Quality Measures Falls Risk Screening/Assistive Devices Have you fallen in the past year?: No Cardiac Ejection fraction %: 60 03/04/25 1547 <Electronically signed by John WANG> Date _ John Demiter PA 03/05/25 1037<Electronically signed by Bib Vincent MD> Cosigner Signature: Date (if applicable) Bib Vincent MD CC: Dr. Christopher Bonilla MD ~ [facility] Work Phone: [facility] (narrative)* Diagnostic Procedure Only (Routine) - Authorized Specialty Diagnoses / Procedures Referred By Contac t Referred To Contact US IMAGING Diagnoses Thyroid nodule Procedures US THYROID/PARATHYROID US SOFT TISSUE HEAD & NECK REAL TIME IMGE Christopher Watts MD [address] [place] [address] Us Imaging Referral ID Status Reason Start Date Expiration Date Visits Requested Visits Authorized [id number] Authorized Auto-Generat ed Referral 2 05/19/2023 1 1 [facility] for referral (narrative)* Diagnostic Procedure Only (Urgent) - Closed Specialty Diagnoses / Procedures [facility] To Contact XR IMAGING Diagnoses Rib pain Procedures XR RIBS/CHEST 3V AP RIB/OBLS/CXR LEFT RADEX RIBS UNI W/POSTEROANT CH MINIMUM 3 VIEWS Shannon Chiu, PADMA.EXTERNAL GRINDER TOOL [address] [place] [address] Xr Imaging Referral ID Status Reason Start Date Expiration Date V isits Requested Visits Authorized [id number] Closed Auto-Generate d Referral 05/17/2022 06/16/2023 1 1 [facility] for referral (narrative)* Diagnostic Procedure Only (Routine) - Authorized Specialty Diagnoses / Procedures Referred By Contac t Referred To Contact US IMAGING Diagnoses Renal mass Liver mass Procedures US ABDOMEN COMPLETE US ABDOMINAL REAL TIME W/IMAGE DOCUMENTATION Christopher Bonilla MD [address] [place] [address] Us Imaging Referral ID Status Reason Start Date Expiration Date Visits Requested Visits Authorized [id number] Authorized Auto-Generat ed Referral 09/01/2022 10/01/2023 1 1 [facility] for referral (narrative)* Diagnostic Procedure Only (Routine) - Closed Specialty Diagnoses / Procedures Referred By Contac t Referred To Contact XR IMAGING Diagnoses Abdominal swelling, generalized Epigastric pain Procedures XR ABDOMEN 1V SUPINE RADIOLOGIC EXAM ABDOMEN 1 VIEW Usman Mehta PA-C [address] [place] [address] Xr Imaging Referral ID Status Reason Start Date Expiration Date V isits Requested Visits Authorized [id number] Closed Auto-Generate d Referral 09/19/2022 10/19/2023 1 1 [facility] for referral (narrative)* Diagnostic Procedure Only (Routine) - Pending Review Specialty Diagnoses / Procedures Referred By Contac t Referred To Contact MOLECULAR & FUNCTIONAL IMAGING Diagnoses Elevated alkaline phosphatase level Procedures NM BONE WHOLE BODY BONE &/JOINT IMAGING WHOLE BODY Usman Mehta PA-C [address] [place] [address] Molecular & Functional Imaging [address] [place] [address] Referral ID Status Reason Start Date Expiration Date Visits Requested Visits Authorized [id number] Pending Review Auto-Generat ed Referral 10/05/2022 11/04/2023 1 1 [facility] for referral (narrative)* Diagnostic Procedure Only (Routine) - Closed Specialty Diagnoses / Procedures Referred By Contac t Referred To Contact US IMAGING Diagnoses Renal mass Liver mass Procedures US ABDOMEN COMPLETE US ABDOMINAL REAL TIME W/IMAGE DOCUMENTATION Christopher Bonilla MD [address] [place] [address] [place] [address] Referral ID Status Reason Start Date Expiration Date V isits Requested Visits Authorized [id number] Closed Auto-Generate d Referral 09/01/2022 10/01/2023 1 1 [facility] for referral (narrative)* Diagnostic Procedure Only (Routine) - Closed Specialty Diagnoses / Procedures Referred By Contac t Referred To Contact MOLECULAR & FUNCTIONAL IMAGING Diagnoses Elevated alkaline phosphatase level Procedures NM BONE WHOLE BODY BONE &/JOINT IMAGING WHOLE BODY Usman Mehta PA-C [address] [place] [address] Molecular & Functional Imaging [address] [place] [address] Referral ID Status Reason Start Date Expiration Date V isits Requested Visits Authorized [id number] Closed Auto-Generate d Referral 10/05/2022 11/04/2023 1 1 [facility] for referral (narrative)* Diagnostic Procedure Only (Routine) - Closed Specialty Diagnoses / Procedures Referred By Contac t Referred To Contact US IMAGING Diagnoses Thyroid nodule Procedures US THYROID/PARATHYROID US SOFT TISSUE HEAD & NECK REAL TIME IMGE Christopher Watts MD [address] [place] [address] [place] [address] Referral ID Status Reason Start Date Expiration Date V isits Requested Visits Authorized [id number] Closed Auto-Generate d Referral 04/19/2022 05/19/2023 1 1 [facility] for referral (narrative)* Diagnostic Procedure Only (Routine) - Closed Specialty Diagnoses / Procedures Referred By Contac t Referred To Contact XR IMAGING Diagnoses Abdominal swelling, generalized Epigastric pain Procedures XR ABDOMEN 1V SUPINE RADIOLOGIC EXAM ABDOMEN 1 VIEW Usman Mehta PA-C [address] [place] [address] [place] [address] Referral ID Status Reason Start Date Expiration Date V isits Requested Visits Authorized [id number] Closed Auto-Generate d Referral 09/19/2022 10/19/2023 1 1 [facility] for referral (narrative)* Diagnostic Procedure Only (Routine) - Closed Specialty Diagnoses / Procedures Referred By Contac t Referred To Contact XR IMAGING Diagnoses Upper back pain Procedures XR THORACIC GENERAL 3V AP/LAT/SWIMMERS RADEX SPINE THORACIC 3 VIEWS Christopher Bonilla MD [address] [place] [address] [place] [address] Referral ID Status Reason Start Date Expiration Date V isits Requested Visits Authorized [id number] Closed Auto-Generate d Referral 07/14/2022 08/13/2023 1 1 [facility] for referral (narrative)* Diagnostic Procedure Only (Urgent) - Closed Specialty Diagnoses / Procedures Referred By Contac t Referred To Contact XR IMAGING Diagnoses Rib pain Procedures XR RIBS/CHEST 3V AP RIB/OBLS/CXR LEFT RADEX RIBS UNI W/POSTEROANT CH MINIMUM 3 VIEWS Shannon Chiu APRN.TRICIA [address] [place] [address] Xr Imaging [facility] Referral ID Status Reason Start Date Expiration Date V isits Requested Visits Authorized [id number] Closed Auto-Generate d Referral 05/17/2022 06/16/2023 1 1 [facility] for referral (narrative)* Diagnostic Procedure Only (Routine) - Closed Specialty Diagnoses / Procedures Referred By Contac t Referred To Contact XR IMAGING Diagnoses Pleural effusion, right Procedures XR CHEST 1V DECUBITUS RIGHT RADIOLOGIC EXAM CHEST SINGLE VIEW Ranjith Edwards MD [address] [place] [address] [place] [address] Referral ID Status Reason Start Date Expiration Date V isits Requested Visits Authorized [id number] Closed Auto-Generate d Referral 07/01/2021 07/31/2022 1 1 [facility] for referral (narrative)No reason for referral [facility]: [facility] visit Narrative* Diagnostic Procedure Only (Routine) - Closed Specialty Diagnoses / Procedures Referred By Contac t Referred To Contact MOLECULAR & FUNCTIONAL IMAGING Diagnoses Elevated alkaline phosphatase level Procedures NM BONE WHOLE BODY BONE &/JOINT IMAGING WHOLE BODY Usman Mehta PA-C [address] [place] [address] Molecular & Functional Imaging [address] [place] [address] Referral ID Status Reason Start Date Expiration Date V isits Requested Visits Authorized [id number] Closed Auto-Generate d Referral 10/05/2022 11/04/2023 1 1 [facility] for visit Narrative* Diagnostic Procedure Only (Routine) - Closed Specialty Diagnoses / Procedures Referred By Contac t Referred To Contact XR IMAGING Diagnoses Abdominal swelling, generalized Epigastric pain Procedures XR ABDOMEN 1V SUPINE RADIOLOGIC EXAM ABDOMEN 1 VIEW Usman Mehta PA-C [address] [place] [address] [place] [address] Referral ID Status Reason Start Date Expiration Date V isits Requested Visits Authorized [id number] Closed Auto-Generate d Referral 09/19/2022 10/19/2023 1 1 [facility] for visit Narrative* Diagnostic Procedure Only (Routine) - Closed Specialty Diagnoses / Procedures Referred By Contac t Referred To Contact XR IMAGING Diagnoses Upper back pain Procedures XR THORACIC GENERAL 3V AP/LAT/SWIMMERS RADEX SPINE THORACIC 3 VIEWS Christopher Bonilla MD [address] [place] [address] [place] [address] Referral ID Status Reason Start Date Expiration Date V isits Requested Visits Authorized [id number] Closed Auto-Generate d Referral 07/14/2022 08/13/2023 1 1 [facility] for visit Narrative* Diagnostic Procedure Only (Urgent) - Closed Specialty Diagnoses / Procedures Referred By Contac t Referred To Contact XR IMAGING Diagnoses Rib pain Procedures XR RIBS/CHEST 3V AP RIB/OBLS/CXR LEFT RADEX RIBS UNI W/POSTEROANT CH MINIMUM 3 VIEWS Shannon Chiu, CHIPPER MACHINE OPERATOR.EXTERNAL GRINDER TOOL [address] [facility] [place] [id number] Xr Imaging [place] [address] Referral ID Status Reason Start Date Expiration Date V isits Requested Visits Authorized [id number] Closed Auto-Generate d Referral 05/17/2022 06/16/2023 1 1 [facility] for visit Narrative* Diagnostic Procedure Only (Routine) - Closed Specialty Diagnoses / Procedures Referred By Contac t Referred To Contact XR IMAGING Diagnoses Pleural effusion, right Procedures XR CHEST 1V DECUBITUS RIGHT RADIOLOGIC EXAM CHEST SINGLE VIEW Ranjith Edwards MD [address] [place] [id number] [place] [address] Referral ID Status Reason Start Date Expiration Date V isits Requested Visits Authorized [id number] Closed Auto-Generate d Referral 07/01/2021 07/31/2022 1 1 [facility] Summary Purpose Family History No Family History Records Found Relationship Condition Age at Onset Recorded Date/T zeinab mother Diabetes mellitus Unknown Malignant neoplasm of colon Unknown Marfan's syndrome Unknown sister Diabetes mellitus Unknown Hypertension Unknown brother Marfan's syndrome Unknown Chronic obstructive pulmonary disease Unk nown father Gastric ulcer Unknown Gastroesophageal reflux disease Unknown Advance Directives No Advanced Directives Records FoundDocuments on File Type Date Recorded Patient Hog Scraper Expl anation Advance Directive(s) 02/09/2022 12:27 PM Date Activated Date Inactivated Comments 02/10/2022 11:13 AM Documents on File Type Date Recorded Patient Hog Scraper Expl anation Advance Directive(s) 07/07/2021 1:21 PM Advance Directive(s) 07/06/2021 8:02 AM Advance Directive(s) 11/21/2019 3:25 PM Documents on File Type Date Recorded Patient Hog Scraper Expl anation Advance Directive(s) 07/07/2021 1:21 PM Advance Directive(s) 07/06/2021 8:02 AM Advance Directive(s) 11/21/2019 3:25 PM Advance Directive Response Recorded Date/ Time Advance Directives No October 19 5 8:49pm Living Will No July 14 4:13pm Power of Field Talent Qualification Specialist No July 14, 2021 4:13pm Advance Directive Response Recorded Date/ Time Advance Directives No October 19 8:49pm Living Will No January 26 8:35am Power of Field Talent Qualification Specialist No January 26 8:35am Latest Code Status on File Code Status Date Activated Date Inactivated Comments Full Code 02/10/2022 11:13 AM Documents on File Type Date Recorded Patient Hog Scraper Expl anation Advance Directive(s) 02/09/2022 12:27 PM Latest Code Status on File Code Status Date Activated Date Inactivated Comments Full Code 02/10/2022 11:13 AM Advance Directive Response Recorded Date/ Time Advance Directives No October 19 7:49pm Living Will No January 26 7:35am Power of Field Talent Qualification Specialist No January 26 022 7:35am Latest Code Status on File Code Status Date Activated Date Inactivated Comments Full Code 02/10/2022 11:13 AM Advance Directive Response Recorded Date/ Time Advance Directives No October 19 8:49pm Living Will No February 13, 2023 10:39am Power of Field Talent Qualification Specialist No February 10:39am Latest Code Status on File Code Status Date Activated Date Inactivated Comments Full Code 02/10/2022 11:13 AM Advance Directive Response Recorded Date/ Time Advance Directives No October 19 5 7:49pm Living Will No February 13, 2023 9:39am Power of Field Talent Qualification Specialist No February 9:39am Date Activated Date Inactivated Comments 02/10/2022 11:13 AM Advance Directive Response Recorded Date/ Time Advance Directives No October 19 5 8:49pm Advance Directive Response Recorded Date/ Time Do you have a Healthcare Power of Field Talent Qualification Specialist? No January 02, 2025 11:45am Advance Directives No October 19 5 8:49pm Advance Directive Response Recorded Date/ Time Do you have a Healthcare Power of Field Talent Qualification Specialist? No January 02, 2025 11:45am Do you have a Healthcare Power of Field Talent Qualification Specialist? No January 22, 2025 1:45pm Advance Directives No October 19 8:49pm Advance Directive Response Recorded Date/ Time Do you have a Healthcare Power of Field Talent Qualification Specialist? No January 02, 2025 11:45am Do you have a Healthcare Power of Field Talent Qualification Specialist? No January 22, 2025 5:46pm Advance Directives No October 19 8:49pm Reason for Referral Specialty Diagnoses / Procedures Referred By Contac t Referred To Contact Pulmonary and Critical Care Medicine Diagnoses Pleural effusion Procedures CONSULT TO PULM/CRITICAL CARE OFFICE/OUTPATIENT [facility] 60-74 MINUTES Christopher Bonilla MD [address] [place] [address] Referral ID Status Reason Start Date Expiration Date Visits Requested Visits Authorized [id number] Authorized PCP Requested Referral 08/25/2021 08/25/2022 1 1 Specialty Diagnoses / Procedures Referred By Contac t Referred To Contact General Surgery Diagnoses Thyroid nodule History of colonic polyps Procedures CONSULT TO GENERAL SURGERY OFFICE/OUTPATIENT [facility] 60-74 MINUTES Christopher Bonilla MD [address] [place] [address] Referral ID Status Reason Start Date Expiration Date Visits Requested Visits Authorized [id number] Authorized PCP Requested Referral 10/04/2021 10/04/2022 1 1 Referral ID Status Reason Start Date Expiration Date Visits Requested Visits Authorized [id number] Authorized PCP Requested Referral 02/14/2022 02/14/2023 1 1 Specialty Diagnoses / Procedures Referred By Contac t Referred To Contact General Surgery Diagnoses Multiple thyroid nodules Procedures CONSULT TO GENERAL SURGERY OFFICE/OUTPATIENT [facility] 60-74 MINUTES Dalila Jensen APRN.CNP [address] [place] [address] Referral ID Status Reason Start Date Expiration Date Visits Requested Visits Authorized [id number] Authorized PCP Requested Referral 2 05/20/2023 1 1 Specialty Diagnoses / Procedures Referred By Contac t Referred To Contact Orthopedics Diagnoses Upper back pain Procedures CONSULT TO ORTHOPAEDICS OFFICE/OUTPATIENT [facility] 60-74 MINUTES Shanta Logan, PADMA.EXTERNAL GRINDER TOOL [address] [place] [address] Referral ID Status Reason Start Date Expiration Date Visits Requested Visits Authorized [id number] Authorized PCP Requested Referral 06/29/2022 06/29/2023 1 1 Specialty Diagnoses / Procedures Referred By Contac t Referred To Contact Pain Management Diagnoses Compression deformity of vertebra Procedures CONSULT TO PAIN MGT OFFICE/OUTPATIENT [facility] 60-74 MINUTES Christopher Bonilla MD [address] [place] [id number] Referral ID Status Reason Start Date Expiration Date Visits Requested Visits Authorized [id number] Authorized PCP Requested Referral 08/19/2022 08/19/2023 1 1 Specialty Diagnoses / Procedures Referred By Contac t Referred To Contact MR IMAGING Diagnoses Pathological fracture, other site, initial encounter for fracture Procedures MRI THORACIC SPINE WO IVCON MRI SPINAL CANAL THORACIC W/O CONTRAST MATRL Usman Mehta PA-C [address] [place] [address] [place] [address] Referral ID Status Reason Start Date Expiration Date V isits Requested Visits Authorized [id number] Closed Auto-Generate d Referral 07/21/2022 08/20/2023 1 1 Specialty Diagnoses / Procedures Referred By Contac t Referred To Contact Gastroenterology Diagnoses 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 Gastroesophageal reflux disease, unspecified whether esophagitis present Iron deficiency anemia, unspecified iron deficiency anemia type Procedures CONSULT TO GASTROENTEROLOGY Christopher Bonilla MD [address] [place] [address] Referral ID Status Reason Start Date Expiration Date Visits Requested Visits Authorized [id number] Ref Not Required PCP Requested Referral 05/10/2023 05/09/2024 1 1 Specialty Diagnoses / Procedures Referred By Contac t Referred To Contact Cardiology Diagnoses Paroxysmal atrial fibrillation (HCC) Procedures CONSULT TO CARDIOLOGY OFFICE/OUTPATIENT [facility] MDM 60 MINUTES Mimi Encinas CHIPPER MACHINE OPERATOR.SENIOR DATABASE ADMINISTRATOR [address] [place] [address] Referral ID Status Reason Start Date Expiration Date Visits Requested Visits Authorized [id number] Authorized PCP Requested Referral 07/10/2023 07/09/2024 1 1 Specialty Diagnoses / Procedures Referred By Timothy kraus Referred To Contact Gastroenterology Diagnoses 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 Procedures CONSULT TO GASTROENTEROLOGY OFFICE/OUTPATIENT [facility] 60 MINUTES Christopher Bonilla MD [address] [place] [address] Referral ID Status Reason Start Date Expiration Date Visits Requested Visits Authorized [id number] Authorized PCP Requested Referral 05/31/2025 1 1 Chief Complaint and Reason for Visit Chief Complaint Shortness of breath EORDER HYPOXIA, RECURRENT R SIDED EFFUSION HYPOXIA, RECURRENT R SIDED EFFUSION HYPOXIA, RECURRENT R SIDED EFFUSION HYPOXIA, RECURRENT R SIDED EFFUSION HYPOXIA, RECURRENT R SIDED EFFUSION HYPOXIA, RECURRENT R SIDED EFFUSION PLUERAL EFFUSION PLEURAL EFFUSION PLEURAL EFFUSION PLEURAL EFFUSION PLEURAL EFFUSION SPLENIC AND RENAL INFARCTS SPLENIC AND RENAL INFARCTS SPLENIC AND RENAL INFARCTS SPLENIC AND RENAL INFARCTS SPLENIC AND RENAL INFARCTS SPLENIC AND RENAL INFARCTS SPLENIC AND RENAL INFARCTS SPLENIC AND RENAL INFARCTS SPLENIC AND RENAL INFARCTS SPLENIC AND RENAL INFARCTS SPLENIC AND RENAL INFARCTS SPL[facility]IC [facility] RENAL INFARCTS Hospital FU 3 M FU Reason for Visit HLD (hyperlipidemia) HTN (hypertension) Pleural effusion Shortness of breath Atrial fibrillation with RVR Hypoxia Pleural effusion on right Acute respiratory failure with hypoxia Hypokalemia Pleural effusion on right Acute respiratory failure with hypoxia Pleural effusion on right Atrial fibrillation Congestive heart failure (CHF) Pleural effusion Atrial fibrillation Congestive heart failure (CHF) HLD (hyperlipidemia) HTN (hypertension) Chief Complaint HYPOXIA, RECURRENT R SIDED EFFUSION HYPOXIA, RECURRENT R SIDED EFFUSION HYPOXIA, RECURRENT R SIDED EFFUSION HYPOXIA, RECURRENT R SIDED EFFUSION HYPOXIA, RECURRENT R SIDED EFFUSION HYPOXIA, RECURRENT R SIDED EFFUSION PLUERAL EFFUSION PLEURAL EFFUSION PLEURAL EFFUSION PLEURAL EFFUSION PLEURAL EFFUSION SPLENIC AND RENAL INFARCTS SPLENIC AND RENAL INFARCTS SPLENIC AND RENAL INFARCTS SPLENIC AND RENAL INFARCTS SPLENIC AND RENAL INFARCTS SPLENIC AND RENAL INFARCTS SPLENIC AND RENAL INFARCTS SPLENIC AND RENAL INFARCTS SPLENIC AND RENAL INFARCTS SPLENIC AND RENAL INFARCTS SPLENIC AND RENAL INFARCTS SPLENIC AND RENAL INFARCTS Hospital FU 3 M FU 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 Reason for Visit Atrial fibrillation with RVR Hypoxia Pleural effusion on right Acute respiratory failure with hypoxia Hypokalemia Pleural effusion on right Acute respiratory failure with hypoxia Pleural effusion on right Atrial fibrillation Congestive heart failure (CHF) Pleural effusion Atrial fibrillation Congestive heart failure (CHF) HLD (hyperlipidemia) HTN (hypertension) Chief Complaint PLUERAL EFFUSION PLEURAL EFFUSION PLEURAL EFFUSION PLEURAL EFFUSION PLEURAL EFFUSION SPLENIC AND RENAL INFARCTS SPLENIC AND RENAL INFARCTS SPLENIC AND RENAL INFARCTS SPLENIC AND RENAL INFARCTS SPLENIC AND RENAL INFARCTS SPLENIC AND RENAL INFARCTS SPLENIC AND RENAL INFARCTS SPLENIC AND RENAL INFARCTS SPLENIC AND RENAL INFARCTS SPLENIC AND RENAL INFARCTS SPLENIC AND RENAL INFARCTS SPLENIC AND RENAL INFARCTS Hospital FU 3 M FU 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 DYSPNEA DYSPNEA Reason for Visit Acute respiratory fa ilure with hypoxia Hypokalemia Pleural effusion on right Acute respiratory failure with hypoxia Pleural effusion on right Atrial fibrillation Congestive heart failure (CHF) Pleural effusion Atrial fibrillation Congestive heart failure (CHF) HLD (hyperlipidemia) HTN (hypertension) Chief Complaint PLUERAL EFFUSION PLEURAL EFFUSION PLEURAL EFFUSION PLEURAL EFFUSION PLEURAL EFFUSION SPLENIC AND RENAL INFARCTS SPLENIC AND RENAL INFARCTS SPLENIC AND RENAL INFARCTS SPLENIC AND RENAL INFARCTS SPLENIC AND RENAL INFARCTS SPLENIC AND RENAL INFARCTS SPLENIC AND RENAL INFARCTS SPLENIC AND RENAL INFARCTS SPLENIC AND RENAL INFARCTS SPLENIC AND RENAL INFARCTS SPLENIC AND RENAL INFARCTS SPLENIC AND RENAL INFARCTS Hospital FU 3 M FU 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 DYSPNEA DYSPNEA DYSPNEA DYSPNEA Reason for Visit Acute respiratory fa ilure with hypoxia Hypokalemia Pleural effusion on right Acute respiratory failure with hypoxia Pleural effusion on right Atrial fibrillation Congestive heart failure (CHF) Pleural effusion Atrial fibrillation Congestive heart failure (CHF) HLD (hyperlipidemia) HTN (hypertension) Chief Complaint DYSPNEA DYSPNEA DYSPNEA DYSPNEA 6 wk FU EORDER 3 M FU PNEUMONIA Pneumonia Pneumonia Pneumonia Pneumonia Pneumonia Pneumonia Pneumonia Pneumonia Pneumonia Pneumonia Pneumonia Pneumonia Reason for Visit Atrial fibrillation Congestive heart failure (CHF) HLD (hyperlipidemia) HTN (hypertension) Atrial fibrillation Congestive heart failure (CHF) Pleural effusion Bacteremia due to Gram-negative bacteria Dehydration Empyema Hypokalemia Hypophosphatemia Hypoxia Leukocytosis Pleural effusion on right Pneumonia Chief Complaint 3 M FU PNEUMONIA Pneumonia Pneumonia Pneumonia Pneumonia Pneumonia Pneumonia Pneumonia Pneumonia Pneumonia Pneumonia Pneumonia Pneumonia 1 YR F/U (NN PT) [facility] ER F/U DYPSNEA Reason for Visit Congestive heart alli lure (CHF) Pleural effusion Bacteremia due to Gram-negative bacteria Dehydration Hypokalemia Hypophosphatemia Hypoxia Leukocytosis Pleural effusion on right Pneumonia Empyema Congestive heart failure (CHF) Essential hypertension Paroxysmal atrial fibrillation Pleural effusion Shortness of breath Paroxysmal atrial fibrillation Pleural effusion on right Empyema Chief Complaint PNEUMONIA Pneumonia Pneumonia Pneumonia Pneumonia Pneumonia Pneumonia Pneumonia Pneumonia Pneumonia Pneumonia Pneumonia Pneumonia 1 YR F/U (NN PT) [facility] ER F/U DYPSNEA Reason for Visit Bacteremia due to Gr am-negative bacteria Dehydration Hypokalemia Hypophosphatemia Hypoxia Leukocytosis Pleural effusion on right Pneumonia Empyema Congestive heart failure (CHF) Essential hypertension Paroxysmal atrial fibrillation Pleural effusion Shortness of breath Paroxysmal atrial fibrillation Pleural effusion on right Empyema Chief Complaint PNEUMONIA Pneumonia Pneumonia Pneumonia Pneumonia Pneumonia Pneumonia Pneumonia Pneumonia Pneumonia Pneumonia Pneumonia Pneumonia 1 YR F/U (NN PT) [facility] ER F/U DYPSNEA PYOTHORAX Reason for Visit Bacteremia due to Gr am-negative bacteria Dehydration Hypokalemia Hypophosphatemia Hypoxia Leukocytosis Pleural effusion on right Pneumonia Empyema Congestive heart failure (CHF) Essential hypertension Paroxysmal atrial fibrillation Pleural effusion Shortness of breath Paroxysmal atrial fibrillation Pleural effusion on right Empyema Chief Complaint PYOTHORAX PYOTHORAX 3 M FU THYROID NODULE 3 M FU L THYROID FNA THYROID NODULE Reason for Visit Pleural effusion Empyema Goiter Congestive heart failure (CHF) Essential hypertension Paroxysmal atrial fibrillation Pleural effusion Goiter Chief Complaint 6 M FU IRON DEFICENCY BLOATING, ABD PAIN *ORAL ONLY* Reason for Visit Pleural effusion Empyema Iron deficiency anemia Chief Complaint 6 M FU IRON DEFICENCY BLOATING, ABD PAIN *ORAL ONLY* DISCUSS CT RESULTS Abnormal findings on diagnostic imaging of other a Discuss upper GI results & plan Reason for Visit Pleural effusion Empyema Iron deficiency anemia Bloating Iron deficiency anemia Bloating Iron deficiency anemia Chief Complaint MULTIPLE THYROID NOD ULES Chief Complaint MULTIPLE THYROID NOD ULES ULTRASOUND FU LEFT THYROID NODULE Reason for Visit Multiple thyroid nod ules Chief Complaint Admit Date 9 M FU December 05, 2024 2:57p m Reason for Visit Admit Date Congestive heart failure (CHF) December 05, 2024 2:57pm Essential hypertension December 05, 2024 2: 57pm Mitral valve insufficiency December 05 2:57pm Paroxysmal atrial fibrillation December 05, 2024 2:57pm Pleural effusion December 05, 2024 2:57p m HLD (hyperlipidemia) December 05, 2024 2:57 pm Chief Complaint Admit Date 9 M FU December 05, 2024 2:57p m Z79.899 - 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 December 20, 2024 10:33am 2 ORDERING DOCT[employer] MERRY paz 2024 12:01pm Reason for Visit Admit Date Congestive heart failure (CHF) December 05, 2024 2:57pm Essential hypertension December 05, 2024 2: 57pm 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 December 05, 2024 2:57pm Mitral valve insufficiency December 05 2:57pm Paroxysmal atrial fibrillation December 05, 2024 2:57pm Pleural effusion December 05, 2024 2:57p m HLD (hyperlipidemia) December 05, 2024 2:57 pm Chief Complaint Admit Date 9 M FU December 05, 2024 2:57p m Z79.899 - 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 December 20, 2024 10:33am 2 [employer] MERRY paz 2024 12:01pm DIARRHEA January 02, 2025 11:0 0am Chief Complaint Admit Date 9 M FU December 05, 2024 2:57p m Z79.899 - 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 December 20, 2024 10:33am 2 [employer] MERRY paz 2024 12:01pm DIARRHEA January 02, 2025 11:0 0am COPD AND CHF EXACERBATION W/ HYPOXIA Jan 4:50pm Reason for Visit Admit Date Congestive heart failure (CHF) December 05, 2024 2:57pm Essential hypertension December 05, 2024 2: 57pm 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 December 05, 2024 2:57pm Mitral valve insufficiency December 05 2:57pm Paroxysmal atrial fibrillation December 05, 2024 2:57pm Pleural effusion December 05, 2024 2:57p m HLD (hyperlipidemia) December 05, 2024 2:57 pm Chronic anticoagulation January 22 4:50pm History of atrial fibrillation January 222024 4:50pm Hypoxia January 22, 2025 4: 50pm Viral syndrome January 22, 2025 4: 50pm Vomiting January 22, 2025 4: 50pm Acute exacerbation of chronic obstructiv e pulmonary disease January 22, 2025 4:50pm Chief Complaint Admit Date 9 M FU December 05, 2024 2:57p m Z79.899 - 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 December 20, 2024 10:33am 2 ORDER[employer] MERRY paz 2024 12:01pm DIARRHEA January 02, 2025 11:0 0am COPD AND CHF EXACERBATION W/ HYPOXIA Jan 4:50pm COPD AND CHF EXACERBATION W/ HYPOXIA Jan 3:08pm COPD AND CHF EXACERBATION W/ HYPOXIA Jan 2024 9:58am Reason for Visit Admit Date Congestive heart failure (CHF) December 05, 2024 2:57pm Essential hypertension December 05, 2024 2: 57pm 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 December 05, 2024 2:57pm Mitral valve insufficiency December 05 2:57pm Paroxysmal atrial fibrillation December 05, 2024 2:57pm Pleural effusion December 05, 2024 2:57p m HLD (hyperlipidemia) December 05, 2024 2:57 pm Chronic anticoagulation January 22 4:50pm History of atrial fibrillation January 222024 4:50pm Hypoxia January 22, 2025 4: 50pm Viral syndrome January 22, 2025 4: 50pm Vomiting January 22, 2025 4: 50pm Acute exacerbation of chronic obstructiv e pulmonary disease January 22, 2025 4:50pm CHF exacerbation January 22, 2025 4: 50pm Chief Complaint Admit Date 9 M FU December 05, 2024 2:57p m Z79.899 - 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 December 20, 2024 10:33am 2 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 Nazario 2024 12:01pm DIARRHEA January 02, 2025 11:0 0am COPD AND CHF EXACERBATION W/ HYPOXIA Jan 4:50pm COPD AND CHF EXACERBATION W/ HYPOXIA Jan 3:08pm COPD AND CHF EXACERBATION W/ HYPOXIA Jan 2024 9:58am COPD AND CHF EXACERBATION W/ HYPOXIA Jan 2024 1:44pm S/P [facility] 01/02March 04, 2025 12:58pm Reason for Visit Admit Date Congestive heart failure (CHF) December 05, 2024 2:57pm Essential hypertension December 05, 2024 2: 57pm 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 December 05, 2024 2:57pm Mitral valve insufficiency December 05 2:57pm Paroxysmal atrial fibrillation December 05, 2024 2:57pm Pleural effusion December 05, 2024 2:57p m HLD (hyperlipidemia) December 05, 2024 2:57 pm Viral syndrome January 22, 2025 4: 50pm Vomiting January 22, 2025 4: 50pm Acute exacerbation of chroni c obstructive pulmonary disease January 22, 2025 4:50pm CHF exacerbation January 22, 2025 4: 50pm Chronic anticoagulation January 22 4:50pm History of atrial fibrillation January 222024 4:50pm Hypoxia January 22, 2025 4: 50pm Anticoagulant long-term use March 042024 12:58pm Congestive heart failure (CHF) March 04, 2025 12:58pm Essential hypertension March 04, 025 12:58pm FDC current use of amiodarone Sept 2024 12:58pm Paroxysmal atrial fibrillation March 04, 2025 12:58pm Additional Source Comments INFORMATION SOURCE (unrecogn ized section and content) DATE CREATED AUTHOR 11/24/2017 [facility] DATE CREATED AUTHOR AUTHOR'S ORGANIZ ATION 05/13/2023 [facility] DATE CREATED AUTHOR AUTHOR'S ORGANIZ ATION 04/13/2025 [facility] DATE CREATED AUTHOR AUTHOR'S ORGANIZ ATION 04/15/2025 [facility] DATE CREATED AUTHOR AUTHOR'S ORGANIZ ATION 04/15/2025 [facility] Source Comments (unrecognize d section and content) In the event this informatio n is protected by the Federal Confidentiality of Alcohol and Drug Abuse Patient Records regulations: The Federal rules restrict any use of the information to criminally investigate or prosecute any alcohol or drug abuse patient.[facility] the event this information is protected by the Federal Confidentiality of Alcohol and Drug Abuse Patient Records regulations: The Federal rules restrict any use of the information to criminally investigate or prosecute any alcohol or drug abuse patient.[facility] CenterIn the event this information is protected by the Federal Confidentiality of Alcohol and Drug Abuse Patient Records regulations: The Federal rules restrict any use of the information to criminally investigate or prosecute any alcohol or drug abuse patient.[facility] CenterIn the event this information is protected by the Federal Confidentiality of Alcohol and Drug Abuse Patient Records regulations: The Federal rules restrict any use of the information to criminally investigate or prosecute any alcohol or drug abuse patient.[facility] CenterIn the event this information is protected by the Federal Confidentiality of Alcohol and Drug Abuse Patient Records regulations: The Federal rules restrict any use of the information to criminally investigate or prosecute any alcohol or drug abuse patient.[facility] CenterIn the event this information is protected by the Federal Confidentiality of Alcohol and Drug Abuse Patient Records regulations: The Federal rules restrict any use of the information to criminally investigate or prosecute any alcohol or drug abuse patient.[facility] CenterIn the event this information is protected by the Federal Confidentiality of Alcohol and Drug Abuse Patient Records regulations: The Federal rules restrict any use of the information to criminally investigate or prosecute any alcohol or drug abuse patient.[facility] CenterIn the event this information is protected by the Federal Confidentiality of Alcohol and Drug Abuse Patient Records regulations: The Federal rules restrict any use of the information to criminally investigate or prosecute any alcohol or drug abuse patient.[facility] CenterIn the event this information is protected by the Federal Confidentiality of Alcohol and Drug Abuse Patient Records regulations: The Federal rules restrict any use of the information to criminally investigate or prosecute any alcohol or drug abuse patient.[facility] CenterIn the event this information is protected by the Federal Confidentiality of Alcohol and Drug Abuse Patient Records regulations: The Federal rules restrict any use of the information to criminally investigate or prosecute any alcohol or drug abuse patient.[facility] CenterIn the event this information is protected by the Federal Confidentiality of Alcohol and Drug Abuse Patient Records regulations: The Federal rules restrict any use of the information to criminally investigate or prosecute any alcohol or drug abuse patient.[facility] CenterIn the event this information is protected by the Federal Confidentiality of Alcohol and Drug Abuse Patient Records regulations: The Federal rules restrict any use of the information to criminally investigate or prosecute any alcohol or drug abuse patient.[facility] CenterIn the event this information is protected by the Federal Confidentiality of Alcohol and Drug Abuse Patient Records regulations: The Federal rules restrict any use of the information to criminally investigate or prosecute any alcohol or drug abuse patient.[facility] CenterIn the event this information is protected by the Federal Confidentiality of Alcohol and Drug Abuse Patient Records regulations: The Federal rules restrict any use of the information to criminally investigate or prosecute any alcohol or drug abuse patient.[facility] CenterIn the event this information is protected by the Federal Confidentiality of Alcohol and Drug Abuse Patient Records regulations: The Federal rules restrict any use of the information to criminally investigate or prosecute any alcohol or drug abuse patient.[facility] CenterIn the event this information is protected by the Federal Confidentiality of Alcohol and Drug Abuse Patient Records regulations: The Federal rules restrict any use of the information to criminally investigate or prosecute any alcohol or drug abuse patient.[facility] CenterIn the event this information is protected by the Federal Confidentiality of Alcohol and Drug Abuse Patient Records regulations: The Federal rules restrict any use of the information to criminally investigate or prosecute any alcohol or drug abuse patient.[facility] CenterIn the event this information is protected by the Federal Confidentiality of Alcohol and Drug Abuse Patient Records regulations: The Federal rules restrict any use of the information to criminally investigate or prosecute any alcohol or drug abuse patient.[facility] CenterIn the event this information is protected by the Federal Confidentiality of Alcohol and Drug Abuse Patient Records regulations: The Federal rules restrict any use of the information to criminally investigate or prosecute any alcohol or drug abuse patient.[facility] CenterIn the event this information is protected by the Federal Confidentiality of Alcohol and Drug Abuse Patient Records regulations: The Federal rules restrict any use of the information to criminally investigate or prosecute any alcohol or drug abuse patient.[facility] CenterIn the event this information is protected by the Federal Confidentiality of Alcohol and Drug Abuse Patient Records regulations: The Federal rules restrict any use of the information to criminally investigate or prosecute any alcohol or drug abuse patient.[facility] CenterIn the event this information is protected by the Federal Confidentiality of Alcohol and Drug Abuse Patient Records regulations: The Federal rules restrict any use of the information to criminally investigate or prosecute any alcohol or drug abuse patient.[facility] CenterIn the event this information is protected by the Federal Confidentiality of Alcohol and Drug Abuse Patient Records regulations: The Federal rules restrict any use of the information to criminally investigate or prosecute any alcohol or drug abuse patient.[facility] CenterIn the event this information is protected by the Federal Confidentiality of Alcohol and Drug Abuse Patient Records regulations: The Federal rules restrict any use of the information to criminally investigate or prosecute any alcohol or drug abuse patient.[facility] CenterIn the event this information is protected by the Federal Confidentiality of Alcohol and Drug Abuse Patient Records regulations: The Federal rules restrict any use of the information to criminally investigate or prosecute any alcohol or drug abuse patient.[facility] CenterIn the event this information is protected by the Federal Confidentiality of Alcohol and Drug Abuse Patient Records regulations: The Federal rules restrict any use of the information to criminally investigate or prosecute any alcohol or drug abuse patient.[facility] [facility] CenterIn the event this information is protected by the Federal Confidentiality of Alcohol and Drug Abuse Patient Records regulations: The Federal rules restrict any use of the information to criminally investigate or prosecute any alcohol or drug abuse patient.[facility] the event this information is protected by the Federal Confidentiality of Alcohol and Drug Abuse Patient Records regulations: The Federal rules restrict any use of the information to criminally investigate or prosecute any alcohol or drug abuse patient.[facility]In the event this information is protected by the Federal Confidentiality of Alcohol and Drug Abuse Patient Records regulations: The Federal rules restrict any use of the information to criminally investigate or prosecute any alcohol or drug abuse patient.[facility] CenterIn the event this information is protected by the Federal Confidentiality of Alcohol and Drug Abuse Patient Records regulations: The Federal rules restrict any use of the information to criminally investigate or prosecute any alcohol or drug abuse patient.[facility] CenterIn the event this information is protected by the Federal Confidentiality of Alcohol and Drug Abuse Patient Records regulations: The Federal rules restrict any use of the information to criminally investigate or prosecute any alcohol or drug abuse patient.[facility] CenterIn the event this information is protected by the Federal Confidentiality of Alcohol and Drug Abuse Patient Records regulations: The Federal rules restrict any use of the information to criminally investigate or prosecute any alcohol or drug abuse patient.[facility] CenterIn the event this information is protected by the Federal Confidentiality of Alcohol and Drug Abuse Patient Records regulations: The Federal rules restrict any use of the information to criminally investigate or prosecute any alcohol or drug abuse patient.[facility] CenterIn the event this information is protected by the Federal Confidentiality of Alcohol and Drug Abuse Patient Records regulations: The Federal rules restrict any use of the information to criminally investigate or prosecute any alcohol or drug abuse patient.[facility] CenterIn the event this information is protected by the Federal Confidentiality of Alcohol and Drug Abuse Patient Records regulations: The Federal rules restrict any use of the information to criminally investigate or prosecute any alcohol or drug abuse patient.[facility] CenterIn the event this information is protected by the Federal Confidentiality of Alcohol and Drug Abuse Patient Records regulations: The Federal rules restrict any use of the information to criminally investigate or prosecute any alcohol or drug abuse patient.[facility] CenterIn the event this information is protected by the Federal Confidentiality of Alcohol and Drug Abuse Patient Records regulations: The Federal rules restrict any use of the information to criminally investigate or prosecute any alcohol or drug abuse patient.[facility]In the event this information is protected by the Federal Confidentiality of Alcohol and Drug Abuse Patient Records regulations: The Federal rules restrict any use of the information to criminally investigate or prosecute any alcohol or drug abuse patient.[facility] CenterIn the event this information is protected by the Federal Confidentiality of Alcohol and Drug Abuse Patient Records regulations: The Federal rules restrict any use of the information to criminally investigate or prosecute any alcohol or drug abuse patient.[facility] CenterIn the event this information is protected by the Federal Confidentiality of Alcohol and Drug Abuse Patient Records regulations: The Federal rules restrict any use of the information to criminally investigate or prosecute any alcohol or drug abuse patient.[facility] CenterIn the event this information is protected by the Federal Confidentiality of Alcohol and Drug Abuse Patient Records regulations: The Federal rules restrict any use of the information to criminally investigate or prosecute any alcohol or drug abuse patient.[facility]In the event this information is protected by the Federal Confidentiality of Alcohol and Drug Abuse Patient Records regulations: The Federal rules restrict any use of the information to criminally investigate or prosecute any alcohol or drug abuse patient.[facility] CenterIn the event this information is protected by the Federal Confidentiality of Alcohol and Drug Abuse Patient Records regulations: The Federal rules restrict any use of the information to criminally investigate or prosecute any alcohol or drug abuse patient.[facility] CenterIn the event this information is protected by the Federal Confidentiality of Alcohol and Drug Abuse Patient Records regulations: The Federal rules restrict any use of the information to criminally investigate or prosecute any alcohol or drug abuse patient.[facility] CenterIn the event this information is protected by the Federal Confidentiality of Alcohol and Drug Abuse Patient Records regulations: The Federal rules restrict any use of the information to criminally investigate or prosecute any alcohol or drug abuse patient.[facility] CenterIn the event this information is protected by the Federal Confidentiality of Alcohol and Drug Abuse Patient Records regulations: The Federal rules restrict any use of the information to criminally investigate or prosecute any alcohol or drug abuse patient.[facility] CenterIn the event this information is protected by the Federal Confidentiality of Alcohol and Drug Abuse Patient Records regulations: The Federal rules restrict any use of the information to criminally investigate or prosecute any alcohol or drug abuse patient.[facility] CenterIn the event this information is protected by the Federal Confidentiality of Alcohol and Drug Abuse Patient Records regulations: The Federal rules restrict any use of the information to criminally investigate or prosecute any alcohol or drug abuse patient.[facility] CenterIn the event this information is protected by the Federal Confidentiality of Alcohol and Drug Abuse Patient Records regulations: The Federal rules restrict any use of the information to criminally investigate or prosecute any alcohol or drug abuse patient.[facility] CenterIn the event this information is protected by the Federal Confidentiality of Alcohol and Drug Abuse Patient Records regulations: The Federal rules restrict any use of the information to criminally investigate or prosecute any alcohol or drug abuse patient.[facility] CenterIn the event this information is protected by the Federal Confidentiality of Alcohol and Drug Abuse Patient Records regulations: The Federal rules restrict any use of the information to criminally investigate or prosecute any alcohol or drug abuse patient.[facility] CenterIn the event this information is protected by the Federal Confidentiality of Alcohol and Drug Abuse Patient Records regulations: The Federal rules restrict any use of the information to criminally investigate or prosecute any alcohol or drug abuse patient.[facility] CenterIn the event this information is protected by the Federal Confidentiality of Alcohol and Drug Abuse Patient Records regulations: The Federal rules restrict any use of the information to criminally investigate or prosecute any alcohol or drug abuse patient.[facility]In the event this information is protected by the Federal Confidentiality of Alcohol and Drug Abuse Patient Records regulations: The Federal rules restrict any use of the information to criminally investigate or prosecute any alcohol or drug abuse patient.[facility]In the event this information is protected by the Federal Confidentiality of Alcohol and Drug Abuse Patient Records regulations: The Federal rules restrict any use of the information to criminally investigate or prosecute any alcohol or drug abuse patient.[facility]In the event this information is protected by the Federal Confidentiality of Alcohol and Drug Abuse Patient Records regulations: The Federal rules restrict any use of the information to criminally investigate or prosecute any alcohol or drug abuse patient.[facility]In the event this information is protected by the Federal Confidentiality of Alcohol and Drug Abuse Patient Records regulations: The Federal rules restrict any use of the information to criminally investigate or prosecute any alcohol or drug abuse patient.[facility] CenterIn the event this information is protected by the Federal Confidentiality of Alcohol and Drug Abuse Patient Records regulations: The Federal rules restrict any use of the information to criminally investigate or prosecute any alcohol or drug abuse patient.[facility]In the event this information is protected by the Federal Confidentiality of Alcohol and Drug Abuse Patient Records regulations: The Federal rules restrict any use of the information to criminally investigate or prosecute any alcohol or drug abuse patient.[facility]In the event this information is protected by the Federal Confidentiality of Alcohol and Drug Abuse Patient Records regulations: The Federal rules restrict any use of the information to criminally investigate or prosecute any alcohol or drug abuse patient.[facility]In the event this information is protected by the Federal Confidentiality of Alcohol and Drug Abuse Patient Records regulations: The Federal rules restrict any use of the information to criminally investigate or prosecute any alcohol or drug abuse patient.[facility]In the event this information is protected by the Federal Confidentiality of Alcohol and Drug Abuse Patient Records regulations: The Federal rules restrict any use of the information to criminally investigate or prosecute any alcohol or drug abuse patient.[facility]In the event this information is protected by the Federal Confidentiality of Alcohol and Drug Abuse Patient Records regulations: The Federal rules restrict any use of the information to criminally investigate or prosecute any alcohol or drug abuse patient.[facility]In the event this information is protected by the Federal Confidentiality of Alcohol and Drug Abuse Patient Records regulations: The Federal rules restrict any use of the information to criminally investigate or prosecute any alcohol or drug abuse patient.[facility]In the event this information is protected by the Federal Confidentiality of Alcohol and Drug Abuse Patient Records regulations: The Federal rules restrict any use of the information to criminally investigate or prosecute any alcohol or drug abuse patient.[facility]In the event this information is protected by the Federal Confidentiality of Alcohol and Drug Abuse Patient Records regulations: The Federal rules restrict any use of the information to criminally investigate or prosecute any alcohol or drug abuse patient.[facility]In the event this information is protected by the Federal Confidentiality of Alcohol and Drug Abuse Patient Records regulations: The Federal rules restrict any use of the information to criminally investigate or prosecute any alcohol or drug abuse patient.[facility]In the event this information is protected by the Federal Confidentiality of Alcohol and Drug Abuse Patient Records regulations: The Federal rules restrict any use of the information to criminally investigate or prosecute any alcohol or drug abuse patient.[facility]In the event this information is protected by the Federal Confidentiality of Alcohol and Drug Abuse Patient Records regulations: The Federal rules restrict any use of the information to criminally investigate or prosecute any alcohol or drug abuse patient.[facility]In the event this information is protected by the Federal Confidentiality of Alcohol and Drug Abuse Patient Records regulations: The Federal rules restrict any use of the information to criminally investigate or prosecute any alcohol or drug abuse patient.[facility]In the event this information is protected by the Federal Confidentiality of Alcohol and Drug Abuse Patient Records regulations: The Federal rules restrict any use of the information to criminally investigate or prosecute any alcohol or drug abuse patient.[facility]In the event this information is protected by the Federal Confidentiality of Alcohol and Drug Abuse Patient Records regulations: The Federal rules restrict any use of the information to criminally investigate or prosecute any alcohol or drug abuse patient.[facility]In the event this information is protected by the Federal Confidentiality of Alcohol and Drug Abuse Patient Records regulations: The Federal rules restrict any use of the information to criminally investigate or prosecute any alcohol or drug abuse patient.[facility]In the event this information is protected by the Federal Confidentiality of Alcohol and Drug Abuse Patient Records regulations: The Federal rules restrict any use of the information to criminally investigate or prosecute any alcohol or drug abuse patient.[facility]In the event this information is protected by the Federal Confidentiality of Alcohol and Drug Abuse Patient Records regulations: The Federal rules restrict any use of the information to criminally investigate or prosecute any alcohol or drug abuse patient.[facility]In the event this information is protected by the Federal Confidentiality of Alcohol and Drug Abuse Patient Records regulations: The Federal rules restrict any use of the information to criminally investigate or prosecute any alcohol or drug abuse patient.[facility]In the event this information is protected by the Federal Confidentiality of Alcohol and Drug Abuse Patient Records regulations: The Federal rules restrict any use of the information to criminally investigate or prosecute any alcohol or drug abuse patient.[facility]In the event this information is protected by the Federal Confidentiality of Alcohol and Drug Abuse Patient Records regulations: The Federal rules restrict any use of the information to criminally investigate or prosecute any alcohol or drug abuse patient.[facility]In the event this information is protected by the Federal Confidentiality of Alcohol and Drug Abuse Patient Records regulations: The Federal rules restrict any use of the information to criminally investigate or prosecute any alcohol or drug abuse patient.[facility]In the event this information is protected by the Federal Confidentiality of Alcohol and Drug Abuse Patient Records regulations: The Federal rules restrict any use of the information to criminally investigate or prosecute any alcohol or drug abuse patient.[facility]In the event this information is protected by the Federal Confidentiality of Alcohol and Drug Abuse Patient Records regulations: The Federal rules restrict any use of the information to criminally investigate or prosecute any alcohol or drug abuse patient.[facility]In the event this information is protected by the Federal Confidentiality of Alcohol and Drug Abuse Patient Records regulations: The Federal rules restrict any use of the information to criminally investigate or prosecute any alcohol or drug abuse patient.[facility]In the event this information is protected by the Federal Confidentiality of Alcohol and Drug Abuse Patient Records regulations: The Federal rules restrict any use of the information to criminally investigate or prosecute any alcohol or drug abuse patient.[facility]In the event this information is protected by the Federal Confidentiality of Alcohol and Drug Abuse Patient Records regulations: The Federal rules restrict any use of the information to criminally investigate or prosecute any alcohol or drug abuse patient.[facility]In the event this information is protected by the Federal Confidentiality of Alcohol and Drug Abuse Patient Records regulations: The Federal rules restrict any use of the information to criminally investigate or prosecute any alcohol or drug abuse patient.[facility]In the event this information is protected by the Federal Confidentiality of Alcohol and Drug Abuse Patient Records regulations: The Federal rules restrict any use of the information to criminally investigate or prosecute any alcohol or drug abuse patient.[facility]In the event this information is protected by the Federal Confidentiality of Alcohol and Drug Abuse Patient Records regulations: The Federal rules restrict any use of the information to criminally investigate or prosecute any alcohol or drug abuse patient.[facility]In the event this information is protected by the Federal Confidentiality of Alcohol and Drug Abuse Patient Records regulations: The Federal rules restrict any use of the information to criminally investigate or prosecute any alcohol or drug abuse patient.[facility]In the event this information is protected by the Federal Confidentiality of Alcohol and Drug Abuse Patient Records regulations: The Federal rules restrict any use of the information to criminally investigate or prosecute any alcohol or drug abuse patient.[facility]In the event this information is protected by the Federal Confidentiality of Alcohol and Drug Abuse Patient Records regulations: The Federal rules restrict any use of the information to criminally investigate or prosecute any alcohol or drug abuse patient.[facility]In the event this information is protected by the Federal Confidentiality of Alcohol and Drug Abuse Patient Records regulations: The Federal rules restrict any use of the information to criminally investigate or prosecute any alcohol or drug abuse patient.[facility]In the event this information is protected by the Federal Confidentiality of Alcohol and Drug Abuse Patient Records regulations: The Federal rules restrict any use of the information to criminally investigate or prosecute any alcohol or drug abuse patient.[facility]In the event this information is protected by the Federal Confidentiality of Alcohol and Drug Abuse Patient Records regulations: The Federal rules restrict any use of the information to criminally investigate or prosecute any alcohol or drug abuse patient.[facility]In the event this information is protected by the Federal Confidentiality of Alcohol and Drug Abuse Patient Records regulations: The Federal rules restrict any use of the information to criminally investigate or prosecute any alcohol or drug abuse patient.[facility]In the event this information is protected by the Federal Confidentiality of Alcohol and Drug Abuse Patient Records regulations: The Federal rules restrict any use of the information to criminally investigate or prosecute any alcohol or drug abuse patient.[facility]In the event this information is protected by the Federal Confidentiality of Alcohol and Drug Abuse Patient Records regulations: The Federal rules restrict any use of the information to criminally investigate or prosecute any alcohol or drug abuse patient.[facility]In the event this information is protected by the Federal Confidentiality of Alcohol and Drug Abuse Patient Records regulations: The Federal rules restrict any use of the information to criminally investigate or prosecute any alcohol or drug abuse patient.[facility]In the event this information is protected by the Federal Confidentiality of Alcohol and Drug Abuse Patient Records regulations: The Federal rules restrict any use of the information to criminally investigate or prosecute any alcohol or drug abuse patient.[facility]In the event this information is protected by the Federal Confidentiality of Alcohol and Drug Abuse Patient Records regulations: The Federal rules restrict any use of the information to criminally investigate or prosecute any alcohol or drug abuse patient.[facility]In the event this information is protected by the Federal Confidentiality of Alcohol and Drug Abuse Patient Records regulations: The Federal rules restrict any use of the information to criminally investigate or prosecute any alcohol or drug abuse patient.[facility]In the event this information is protected by the Federal Confidentiality of Alcohol and Drug Abuse Patient Records regulations: The Federal rules restrict any use of the information to criminally investigate or prosecute any alcohol or drug abuse patient.[facility]In the event this information is protected by the Federal Confidentiality of Alcohol and Drug Abuse Patient Records regulations: The Federal rules restrict any use of the information to criminally investigate or prosecute any alcohol or drug abuse patient.[facility]In the event this information is protected by the Federal Confidentiality of Alcohol and Drug Abuse Patient Records regulations: The Federal rules restrict any use of the information to criminally investigate or prosecute any alcohol or drug abuse patient.[facility]In the event this information is protected by the Federal Confidentiality of Alcohol and Drug Abuse Patient Records regulations: The Federal rules restrict any use of the information to criminally investigate or prosecute any alcohol or drug abuse patient.[facility]In the event this information is protected by the Federal Confidentiality of Alcohol and Drug Abuse Patient Records regulations: The Federal rules restrict any use of the information to criminally investigate or prosecute any alcohol or drug abuse patient.[facility]In the event this information is protected by the Federal Confidentiality of Alcohol and Drug Abuse Patient Records regulations: The Federal rules restrict any use of the information to criminally investigate or prosecute any alcohol or drug abuse patient.[facility] CenterIn the event this information is protected by the Federal Confidentiality of Alcohol and Drug Abuse Patient Records regulations: The Federal rules restrict any use of the information to criminally investigate or prosecute any alcohol or drug abuse patient.[facility] CenterIn the event this information is protected by the Federal Confidentiality of Alcohol and Drug Abuse Patient Records regulations: The Federal rules restrict any use of the information to criminally investigate or prosecute any alcohol or drug abuse patient.[facility] CenterIn the event this information is protected by the Federal Confidentiality of Alcohol and Drug Abuse Patient Records regulations: The Federal rules restrict any use of the information to criminally investigate or prosecute any alcohol or drug abuse patient.[facility] CenterIn the event this information is protected by the Federal Confidentiality of Alcohol and Drug Abuse Patient Records regulations: The Federal rules restrict any use of the information to criminally investigate or prosecute any alcohol or drug abuse patient.[facility] CenterIn the event this information is protected by the Federal Confidentiality of Alcohol and Drug Abuse Patient Records regulations: The Federal rules restrict any use of the information to criminally investigate or prosecute any alcohol or drug abuse patient.[facility] CenterIn the event this information is protected by the Federal Confidentiality of Alcohol and Drug Abuse Patient Records regulations: The Federal rules restrict any use of the information to criminally investigate or prosecute any alcohol or drug abuse patient.[facility] CenterIn the event this information is protected by the Federal Confidentiality of Alcohol and Drug Abuse Patient Records regulations: The Federal rules restrict any use of the information to criminally investigate or prosecute any alcohol or drug abuse patient.[facility] CenterIn the event this information is protected by the Federal Confidentiality of Alcohol and Drug Abuse Patient Records regulations: The Federal rules restrict any use of the information to criminally investigate or prosecute any alcohol or drug abuse patient.[facility] CenterIn the event this information is protected by the Federal Confidentiality of Alcohol and Drug Abuse Patient Records regulations: The Federal rules restrict any use of the information to criminally investigate or prosecute any alcohol or drug abuse patient.[facility] CenterIn the event this information is protected by the Federal Confidentiality of Alcohol and Drug Abuse Patient Records regulations: The Federal rules restrict any use of the information to criminally investigate or prosecute any alcohol or drug abuse patient.[facility] CenterIn the event this information is protected by the Federal Confidentiality of Alcohol and Drug Abuse Patient Records regulations: The Federal rules restrict any use of the information to criminally investigate or prosecute any alcohol or drug abuse patient.[facility] CenterIn the event this information is protected by the Federal Confidentiality of Alcohol and Drug Abuse Patient Records regulations: The Federal rules restrict any use of the information to criminally investigate or prosecute any alcohol or drug abuse patient.[facility] CenterIn the event this information is protected by the Federal Confidentiality of Alcohol and Drug Abuse Patient Records regulations: The Federal rules restrict any use of the information to criminally investigate or prosecute any alcohol or drug abuse patient.[facility] CenterIn the event this information is protected by the Federal Confidentiality of Alcohol and Drug Abuse Patient Records regulations: The Federal rules restrict any use of the information to criminally investigate or prosecute any alcohol or drug abuse patient.[facility]In the event this information is protected by the Federal Confidentiality of Alcohol and Drug Abuse Patient Records regulations: The Federal rules restrict any use of the information to criminally investigate or prosecute any alcohol or drug abuse patient.[facility] CenterIn the event this information is protected by the Federal Confidentiality of Alcohol and Drug Abuse Patient Records regulations: The Federal rules restrict any use of the information to criminally investigate or prosecute any alcohol or drug abuse patient.[facility] CenterIn the event this information is protected by the Federal Confidentiality of Alcohol and Drug Abuse Patient Records regulations: The Federal rules restrict any use of the information to criminally investigate or prosecute any alcohol or drug abuse patient.[facility] CenterIn the event this information is protected by the Federal Confidentiality of Alcohol and Drug Abuse Patient Records regulations: The Federal rules restrict any use of the information to criminally investigate or prosecute any alcohol or drug abuse patient.[facility] CenterIn the event this information is protected by the Federal Confidentiality of Alcohol and Drug Abuse Patient Records regulations: The Federal rules restrict any use of the information to criminally investigate or prosecute any alcohol or drug abuse patient.[facility] CenterIn the event this information is protected by the Federal Confidentiality of Alcohol and Drug Abuse Patient Records regulations: The Federal rules restrict any use of the information to criminally investigate or prosecute any alcohol or drug abuse patient.[facility] CenterIn the event this information is protected by the Federal Confidentiality of Alcohol and Drug Abuse Patient Records regulations: The Federal rules restrict any use of the information to criminally investigate or prosecute any alcohol or drug abuse patient.[facility] CenterIn the event this information is protected by the Federal Confidentiality of Alcohol and Drug Abuse Patient Records regulations: The Federal rules restrict any use of the information to criminally investigate or prosecute any alcohol or drug abuse patient.[facility] CenterIn the event this information is protected by the Federal Confidentiality of Alcohol and Drug Abuse Patient Records regulations: The Federal rules restrict any use of the information to criminally investigate or prosecute any alcohol or drug abuse patient.[facility] CenterIn the event this information is protected by the Federal Confidentiality of Alcohol and Drug Abuse Patient Records regulations: The Federal rules restrict any use of the information to criminally investigate or prosecute any alcohol or drug abuse patient.[facility] CenterIn the event this information is protected by the Federal Confidentiality of Alcohol and Drug Abuse Patient Records regulations: The Federal rules restrict any use of the information to criminally investigate or prosecute any alcohol or drug abuse patient.[facility] CenterIn the event this information is protected by the Federal Confidentiality of Alcohol and Drug Abuse Patient Records regulations: The Federal rules restrict any use of the information to criminally investigate or prosecute any alcohol or drug abuse patient.[facility] CenterIn the event this information is protected by the Federal Confidentiality of Alcohol and Drug Abuse Patient Records regulations: The Federal rules restrict any use of the information to criminally investigate or prosecute any alcohol or drug abuse patient.[facility] CenterIn the event this information is protected by the Federal Confidentiality of Alcohol and Drug Abuse Patient Records regulations: The Federal rules restrict any use of the information to criminally investigate or prosecute any alcohol or drug abuse patient.[facility] CenterIn the event this information is protected by the Federal Confidentiality of Alcohol and Drug Abuse Patient Records regulations: The Federal rules restrict any use of the information to criminally investigate or prosecute any alcohol or drug abuse patient.[facility] CenterIn the event this information is protected by the Federal Confidentiality of Alcohol and Drug Abuse Patient Records regulations: The Federal rules restrict any use of the information to criminally investigate or prosecute any alcohol or drug abuse patient.[facility] CenterIn the event this information is protected by the Federal Confidentiality of Alcohol and Drug Abuse Patient Records regulations: The Federal rules restrict any use of the information to criminally investigate or prosecute any alcohol or drug abuse patient.[facility] CenterIn the event this information is protected by the Federal Confidentiality of Alcohol and Drug Abuse Patient Records regulations: The Federal rules restrict any use of the information to criminally investigate or prosecute any alcohol or drug abuse patient.[facility] CenterIn the event this information is protected by the Federal Confidentiality of Alcohol and Drug Abuse Patient Records regulations: The Federal rules restrict any use of the information to criminally investigate or prosecute any alcohol or drug abuse patient.[facility]In the event this information is protected by the Federal Confidentiality of Alcohol and Drug Abuse Patient Records regulations: The Federal rules restrict any use of the information to criminally investigate or prosecute any alcohol or drug abuse patient.[facility]In the event this information is protected by the Federal Confidentiality of Alcohol and Drug Abuse Patient Records regulations: The Federal rules restrict any use of the information to criminally investigate or prosecute any alcohol or drug abuse patient.[facility]In the event this information is protected by the Federal Confidentiality of Alcohol and Drug Abuse Patient Records regulations: The Federal rules restrict any use of the information to criminally investigate or prosecute any alcohol or drug abuse patient.[facility]In the event this information is protected by the Federal Confidentiality of Alcohol and Drug Abuse Patient Records regulations: The Federal rules restrict any use of the information to criminally investigate or prosecute any alcohol or drug abuse patient.[facility]In the event this information is protected by the Federal Confidentiality of Alcohol and Drug Abuse Patient Records regulations: The Federal rules restrict any use of the information to criminally investigate or prosecute any alcohol or drug abuse patient.[facility]In the event this information is protected by the Federal Confidentiality of Alcohol and Drug Abuse Patient Records regulations: The Federal rules restrict any use of the information to criminally investigate or prosecute any alcohol or drug abuse patient.[facility]In the event this information is protected by the Federal Confidentiality of Alcohol and Drug Abuse Patient Records regulations: The Federal rules restrict any use of the information to criminally investigate or prosecute any alcohol or drug abuse patient.[facility]In the event this information is protected by the Federal Confidentiality of Alcohol and Drug Abuse Patient Records regulations: The Federal rules restrict any use of the information to criminally investigate or prosecute any alcohol or drug abuse patient.[facility]In the event this information is protected by the Federal Confidentiality of Alcohol and Drug Abuse Patient Records regulations: The Federal rules restrict any use of the information to criminally investigate or prosecute any alcohol or drug abuse patient.[facility]In the event this information is protected by the Federal Confidentiality of Alcohol and Drug Abuse Patient Records regulations: The Federal rules restrict any use of the information to criminally investigate or prosecute any alcohol or drug abuse patient.[facility]In the event this information is protected by the Federal Confidentiality of Alcohol and Drug Abuse Patient Records regulations: The Federal rules restrict any use of the information to criminally investigate or prosecute any alcohol or drug abuse patient.[facility]In the event this information is protected by the Federal Confidentiality of Alcohol and Drug Abuse Patient Records regulations: The Federal rules restrict any use of the information to criminally investigate or prosecute any alcohol or drug abuse patient.[facility]In the event this information is protected by the Federal Confidentiality of Alcohol and Drug Abuse Patient Records regulations: The Federal rules restrict any use of the information to criminally investigate or prosecute any alcohol or drug abuse patient.[facility]In the event this information is protected by the Federal Confidentiality of Alcohol and Drug Abuse Patient Records regulations: The Federal rules restrict any use of the information to criminally investigate or prosecute any alcohol or drug abuse patient.[facility]In the event this information is protected by the Federal Confidentiality of Alcohol and Drug Abuse Patient Records regulations: The Federal rules restrict any use of the information to criminally investigate or prosecute any alcohol or drug abuse patient.[facility]In the event this information is protected by the Federal Confidentiality of Alcohol and Drug Abuse Patient Records regulations: The Federal rules restrict any use of the information to criminally investigate or prosecute any alcohol or drug abuse patient.[facility]In the event this information is protected by the Federal Confidentiality of Alcohol and Drug Abuse Patient Records regulations: The Federal rules restrict any use of the information to criminally investigate or prosecute any alcohol or drug abuse patient.[facility]In the event this information is protected by the Federal Confidentiality of Alcohol and Drug Abuse Patient Records regulations: The Federal rules restrict any use of the information to criminally investigate or prosecute any alcohol or drug abuse patient.[facility]In the event this information is protected by the Federal Confidentiality of Alcohol and Drug Abuse Patient Records regulations: The Federal rules restrict any use of the information to criminally investigate or prosecute any alcohol or drug abuse patient.[facility]In the event this information is protected by the Federal Confidentiality of Alcohol and Drug Abuse Patient Records regulations: The Federal rules restrict any use of the information to criminally investigate or prosecute any alcohol or drug abuse patient.[facility]In the event this information is protected by the Federal Confidentiality of Alcohol and Drug Abuse Patient Records regulations: The Federal rules restrict any use of the information to criminally investigate or prosecute any alcohol or drug abuse patient.[facility]In the event this information is protected by the Federal Confidentiality of Alcohol and Drug Abuse Patient Records regulations: The Federal rules restrict any use of the information to criminally investigate or prosecute any alcohol or drug abuse patient.[facility]In the event this information is protected by the Federal Confidentiality of Alcohol and Drug Abuse Patient Records regulations: The Federal rules restrict any use of the information to criminally investigate or prosecute any alcohol or drug abuse patient.[facility]In the event this information is protected by the Federal Confidentiality of Alcohol and Drug Abuse Patient Records regulations: The Federal rules restrict any use of the information to criminally investigate or prosecute any alcohol or drug abuse patient.[facility]In the event this information is protected by the Federal Confidentiality of Alcohol and Drug Abuse Patient Records regulations: The Federal rules restrict any use of the information to criminally investigate or prosecute any alcohol or drug abuse patient.[facility]In the event this information is protected by the Federal Confidentiality of Alcohol and Drug Abuse Patient Records regulations: The Federal rules restrict any use of the information to criminally investigate or prosecute any alcohol or drug abuse patient.[facility]In the event this information is protected by the Federal Confidentiality of Alcohol and Drug Abuse Patient Records regulations: The Federal rules restrict any use of the information to criminally investigate or prosecute any alcohol or drug abuse patient.[facility]In the event this information is protected by the Federal Confidentiality of Alcohol and Drug Abuse Patient Records regulations: The Federal rules restrict any use of the information to criminally investigate or prosecute any alcohol or drug abuse patient.[facility]In the event this information is protected by the Federal Confidentiality of Alcohol and Drug Abuse Patient Records regulations: The Federal rules restrict any use of the information to criminally investigate or prosecute any alcohol or drug abuse patient.[facility]In the event this information is protected by the Federal Confidentiality of Alcohol and Drug Abuse Patient Records regulations: The Federal rules restrict any use of the information to criminally investigate or prosecute any alcohol or drug abuse patient.[facility]In the event this information is protected by the Federal Confidentiality of Alcohol and Drug Abuse Patient Records regulations: The Federal rules restrict any use of the information to criminally investigate or prosecute any alcohol or drug abuse patient.[facility]In the event this information is protected by the Federal Confidentiality of Alcohol and Drug Abuse Patient Records regulations: The Federal rules restrict any use of the information to criminally investigate or prosecute any alcohol or drug abuse patient.[facility]In the event this information is protected by the Federal Confidentiality of Alcohol and Drug Abuse Patient Records regulations: The Federal rules restrict any use of the information to criminally investigate or prosecute any alcohol or drug abuse patient.[facility]In the event this information is protected by the Federal Confidentiality of Alcohol and Drug Abuse Patient Records regulations: The Federal rules restrict any use of the information to criminally investigate or prosecute any alcohol or drug abuse patient.[facility]In the event this information is protected by the Federal Confidentiality of Alcohol and Drug Abuse Patient Records regulations: The Federal rules restrict any use of the information to criminally investigate or prosecute any alcohol or drug abuse patient.[facility]In the event this information is protected by the Federal Confidentiality of Alcohol and Drug Abuse Patient Records regulations: The Federal rules restrict any use of the information to criminally investigate or prosecute any alcohol or drug abuse patient.[facility]In the event this information is protected by the Federal Confidentiality of Alcohol and Drug Abuse Patient Records regulations: The Federal rules restrict any use of the information to criminally investigate or prosecute any alcohol or drug abuse patient.[facility]In the event this information is protected by the Federal Confidentiality of Alcohol and Drug Abuse Patient Records regulations: The Federal rules restrict any use of the information to criminally investigate or prosecute any alcohol or drug abuse patient.[facility]In the event this information is protected by the Federal Confidentiality of Alcohol and Drug Abuse Patient Records regulations: The Federal rules restrict any use of the information to criminally investigate or prosecute any alcohol or drug abuse patient.[facility]In the event this information is protected by the Federal Confidentiality of Alcohol and Drug Abuse Patient Records regulations: The Federal rules restrict any use of the information to criminally investigate or prosecute any alcohol or drug abuse patient.[facility]In the event this information is protected by the Federal Confidentiality of Alcohol and Drug Abuse Patient Records regulations: The Federal rules restrict any use of the information to criminally investigate or prosecute any alcohol or drug abuse patient.[facility]In the event this information is protected by the Federal Confidentiality of Alcohol and Drug Abuse Patient Records regulations: The Federal rules restrict any use of the information to criminally investigate or prosecute any alcohol or drug abuse patient.[facility]In the event this information is protected by the Federal Confidentiality of Alcohol and Drug Abuse Patient Records regulations: The Federal rules restrict any use of the information to criminally investigate or prosecute any alcohol or drug abuse patient.[facility]In the event this information is protected by the Federal Confidentiality of Alcohol and Drug Abuse Patient Records regulations: The Federal rules restrict any use of the information to criminally investigate or prosecute any alcohol or drug abuse patient.[facility]In the event this information is protected by the Federal Confidentiality of Alcohol and Drug Abuse Patient Records regulations: The Federal rules restrict any use of the information to criminally investigate or prosecute any alcohol or drug abuse patient.[facility] CenterIn the event this information is protected by the Federal Confidentiality of Alcohol and Drug Abuse Patient Records regulations: The Federal rules restrict any use of the information to criminally investigate or prosecute any alcohol or drug abuse patient.[facility] CenterIn the event this information is protected by the Federal Confidentiality of Alcohol and Drug Abuse Patient Records regulations: The Federal rules restrict any use of the information to criminally investigate or prosecute any alcohol or drug abuse patient.[facility] CenterIn the event this information is protected by the Federal Confidentiality of Alcohol and Drug Abuse Patient Records regulations: The Federal rules restrict any use of the information to criminally investigate or prosecute any alcohol or drug abuse patient.[facility] CenterIn the event this information is protected by the Federal Confidentiality of Alcohol and Drug Abuse Patient Records regulations: The Federal rules restrict any use of the information to criminally investigate or prosecute any alcohol or drug abuse patient.[facility] CenterIn the event this information is protected by the Federal Confidentiality of Alcohol and Drug Abuse Patient Records regulations: The Federal rules restrict any use of the information to criminally investigate or prosecute any alcohol or drug abuse patient.[facility] CenterIn the event this information is protected by the Federal Confidentiality of Alcohol and Drug Abuse Patient Records regulations: The Federal rules restrict any use of the information to criminally investigate or prosecute any alcohol or drug abuse patient.[facility] CenterIn the event this information is protected by the Federal Confidentiality of Alcohol and Drug Abuse Patient Records regulations: The Federal rules restrict any use of the information to criminally investigate or prosecute any alcohol or drug abuse patient.[facility] CenterIn the event this information is protected by the Federal Confidentiality of Alcohol and Drug Abuse Patient Records regulations: The Federal rules restrict any use of the information to criminally investigate or prosecute any alcohol or drug abuse patient.[facility] CenterIn the event this information is protected by the Federal Confidentiality of Alcohol and Drug Abuse Patient Records regulations: The Federal rules restrict any use of the information to criminally investigate or prosecute any alcohol or drug abuse patient.[facility] CenterIn the event this information is protected by the Federal Confidentiality of Alcohol and Drug Abuse Patient Records regulations: The Federal rules restrict any use of the information to criminally investigate or prosecute any alcohol or drug abuse patient.[facility] CenterIn the event this information is protected by the Federal Confidentiality of Alcohol and Drug Abuse Patient Records regulations: The Federal rules restrict any use of the information to criminally investigate or prosecute any alcohol or drug abuse patient.[facility] CenterIn the event this information is protected by the Federal Confidentiality of Alcohol and Drug Abuse Patient Records regulations: The Federal rules restrict any use of the information to criminally investigate or prosecute any alcohol or drug abuse patient.[facility] CenterIn the event this information is protected by the Federal Confidentiality of Alcohol and Drug Abuse Patient Records regulations: The Federal rules restrict any use of the information to criminally investigate or prosecute any alcohol or drug abuse patient.[facility] CenterIn the event this information is protected by the Federal Confidentiality of Alcohol and Drug Abuse Patient Records regulations: The Federal rules restrict any use of the information to criminally investigate or prosecute any alcohol or drug abuse patient.[facility] CenterIn the event this information is protected by the Federal Confidentiality of Alcohol and Drug Abuse Patient Records regulations: The Federal rules restrict any use of the information to criminally investigate or prosecute any alcohol or drug abuse patient.[facility] CenterIn the event this information is protected by the Federal Confidentiality of Alcohol and Drug Abuse Patient Records regulations: The Federal rules restrict any use of the information to criminally investigate or prosecute any alcohol or drug abuse patient.[facility] CenterIn the event this information is protected by the Federal Confidentiality of Alcohol and Drug Abuse Patient Records regulations: The Federal rules restrict any use of the information to criminally investigate or prosecute any alcohol or drug abuse patient.[facility] CenterIn the event this information is protected by the Federal Confidentiality of Alcohol and Drug Abuse Patient Records regulations: The Federal rules restrict any use of the information to criminally investigate or prosecute any alcohol or drug abuse patient.[facility] CenterIn the event this information is protected by the Federal Confidentiality of Alcohol and Drug Abuse Patient Records regulations: The Federal rules restrict any use of the information to criminally investigate or prosecute any alcohol or drug abuse patient.[facility] CenterIn the event this information is protected by the Federal Confidentiality of Alcohol and Drug Abuse Patient Records regulations: The Federal rules restrict any use of the information to criminally investigate or prosecute any alcohol or drug abuse patient.[facility] CenterIn the event this information is protected by the Federal Confidentiality of Alcohol and Drug Abuse Patient Records regulations: The Federal rules restrict any use of the information to criminally investigate or prosecute any alcohol or drug abuse patient.[facility] CenterIn the event this information is protected by the Federal Confidentiality of Alcohol and Drug Abuse Patient Records regulations: The Federal rules restrict any use of the information to criminally investigate or prosecute any alcohol or drug abuse patient.[facility] CenterIn the event this information is protected by the Federal Confidentiality of Alcohol and Drug Abuse Patient Records regulations: The Federal rules restrict any use of the information to criminally investigate or prosecute any alcohol or drug abuse patient.[facility] CenterIn the event this information is protected by the Federal Confidentiality of Alcohol and Drug Abuse Patient Records regulations: The Federal rules restrict any use of the information to criminally investigate or prosecute any alcohol or drug abuse patient.[facility] CenterIn the event this information is protected by the Federal Confidentiality of Alcohol and Drug Abuse Patient Records regulations: The Federal rules restrict any use of the information to criminally investigate or prosecute any alcohol or drug abuse patient.[facility] CenterIn the event this information is protected by the Federal Confidentiality of Alcohol and Drug Abuse Patient Records regulations: The Federal rules restrict any use of the information to criminally investigate or prosecute any alcohol or drug abuse patient.[facility] CenterIn the event this information is protected by the Federal Confidentiality of Alcohol and Drug Abuse Patient Records regulations: The Federal rules restrict any use of the information to criminally investigate or prosecute any alcohol or drug abuse patient.[facility] CenterIn the event this information is protected by the Federal Confidentiality of Alcohol and Drug Abuse Patient Records regulations: The Federal rules restrict any use of the information to criminally investigate or prosecute any alcohol or drug abuse patient.[facility] CenterIn the event this information is protected by the Federal Confidentiality of Alcohol and Drug Abuse Patient Records regulations: The Federal rules restrict any use of the information to criminally investigate or prosecute any alcohol or drug abuse patient.[facility] CenterIn the event this information is protected by the Federal Confidentiality of Alcohol and Drug Abuse Patient Records regulations: The Federal rules restrict any use of the information to criminally investigate or prosecute any alcohol or drug abuse patient.[facility] CenterIn the event this information is protected by the Federal Confidentiality of Alcohol and Drug Abuse Patient Records regulations: The Federal rules restrict any use of the information to criminally investigate or prosecute any alcohol or drug abuse patient.[facility] CenterIn the event this information is protected by the Federal Confidentiality of Alcohol and Drug Abuse Patient Records regulations: The Federal rules restrict any use of the information to criminally investigate or prosecute any alcohol or drug abuse patient.[facility] CenterIn the event this information is protected by the Federal Confidentiality of Alcohol and Drug Abuse Patient Records regulations: The Federal rules restrict any use of the information to criminally investigate or prosecute any alcohol or drug abuse patient.[facility] CenterIn the event this information is protected by the Federal Confidentiality of Alcohol and Drug Abuse Patient Records regulations: The Federal rules restrict any use of the information to criminally investigate or prosecute any alcohol or drug abuse patient.[facility] CenterIn the event this information is protected by the Federal Confidentiality of Alcohol and Drug Abuse Patient Records regulations: The Federal rules restrict any use of the information to criminally investigate or prosecute any alcohol or drug abuse patient.[facility] CenterIn the event this information is protected by the Federal Confidentiality of Alcohol and Drug Abuse Patient Records regulations: The Federal rules restrict any use of the information to criminally investigate or prosecute any alcohol or drug abuse patient.[facility] CenterIn the event this information is protected by the Federal Confidentiality of Alcohol and Drug Abuse Patient Records regulations: The Federal rules restrict any use of the information to criminally investigate or prosecute any alcohol or drug abuse patient.[facility] CenterIn the event this information is protected by the Federal Confidentiality of Alcohol and Drug Abuse Patient Records regulations: The Federal rules restrict any use of the information to criminally investigate or prosecute any alcohol or drug abuse patient.[facility] CenterIn the event this information is protected by the Federal Confidentiality of Alcohol and Drug Abuse Patient Records regulations: The Federal rules restrict any use of the information to criminally investigate or prosecute any alcohol or drug abuse patient.[facility] CenterIn the event this information is protected by the Federal Confidentiality of Alcohol and Drug Abuse Patient Records regulations: The Federal rules restrict any use of the information to criminally investigate or prosecute any alcohol or drug abuse patient.[facility] Reason for Visit (unrecogniz ed section and content) Reason Comments Results Reason Comments Anticoagulation Reason Onset Date Comments [...] t Referred To Contact [facility] Home Care [address] [place] [id number] Referral ID Status Reason Start Date Expiration Date Visits Re quested Visits Authorized [id number] 1 1 Reason Onset Date Comments Community [...] Results - Mri Reason Onset Date Comments [facility] 08/29/2022 Telephonic outre ach Reason Comments Follow Up 4 week follow up Reason Comments Back Pain Follow up. Compressi on fracture in back. Swelling Distention in abdome n X 2 months. Hears "gurgling" noises in stomach. Refers to it sounding like water. Denies nausea and vomiting. Gets short of breath when swelling gets severe enough. Denies edema to feet, ankles or legs. Denies chest pain Reason Onset Date Comments [facility] 09/22/2022 Telephonic outre ach Reason Comments Patient Request Reason Comments Orders Reason Comments Abdominal Pain Follow up Reason Onset Date Comments Refill Request 01/04/2023 Reason Comments blisters/rash possible shingles Reason Comments Rash L arm and back of ne ck x 3 days Reason Onset Date Comments [facility] 01/16/2023 Routine outreach Reason Comments Shingles Reason Comments INR direction Reason Comments Patient Question INR/Coumadin Reason Onset Date Comments [facility] 02/14/2023 Routine outreach Reason Onset Date Comments Refill Request 02/22/2023 Reason Comments Anticoagulation Reason Onset Date Comments [facility] 03/15/2023 Routine outreach Reason Comments Radiology NM Specialty Diagnoses / Procedures Referred By Josetteac t Referred To Contact [facility] Diagnoses Elevated alkaline phosphatase level Procedures NM BONE WHOLE BODY BONE &/JOINT IMAGING WHOLE BODY Usman Mehta PA-C [address] [place] [address] Molecular [facility] Functional Imaging [address] [place] [address] Referral ID Status Reason Start Date Expiration Date V isits Requested Visits Authorized [id number] Closed Auto-Generate d Referral 10/05/2022 11/04/2023 1 1 Reason Comments Radiology US Specialty Diagnoses / Procedures Referred By Contac t Referred To Contact US IMAGING Diagnoses Renal mass Liver mass Procedures US ABDOMEN COMPLETE US ABDOMINAL REAL TIME W/IMAGE DOCUMENTATION Christopher Bonilla MD [address] [place] [address] Us Imaging [place] [address] Referral ID Status Reason Start Date Expiration Date V isits Requested Visits Authorized [id number] Closed Auto-Generate d Referral 09/01/2022 10/01/2023 1 1 Specialty Diagnoses / Procedures Referred By Contac t Referred To Contact MR IMAGING Diagnoses Pathological fracture, other site, initial encounter for fracture Procedures MRI THORACIC SPINE WO IVCON MRI SPINAL CANAL THORACIC W/O CONTRAST Usman Cadet PA-C [address] [place] [address] [place] [address] Referral ID Status Reason Start Date Expiration Date V isits Requested Visits Authorized [id number] Closed Auto-Generate d Referral 07/21/2022 08/20/2023 1 1 Specialty Diagnoses / Procedures Referred By Contac t Referred To Contact US IMAGING Diagnoses Thyroid nodule Procedures US THYROID/PARATHYROID US SOFT TISSUE HEAD & NECK REAL TIME IMGE Christopher Watts MD [address] [place] [address] [facility] Referral ID Status Reason Start Date Expiration Date V isits Requested Visits Authorized [id number] Closed Auto-Generate d Referral 04/19/2022 05/19/2023 1 1 Reason Onset Date Comments [facility] 04/11/2023 Routine outreach Reason Comments Results Critical INR Reason Comments Appointment Rescheduled Reason Onset Date Comments [facility] 05/25/2023 Routine outreach Reason Onset Date Comments Refill Request 07/10/2023 Reason Comments Cough Productive cough for over a month Reason Onset Date Comments [facility] 08/02/2023 Routine outreach Reason Onset Date Comments Refill Request; quantity change 08/03/2023 Refill Request 08/03/2023 Reason Onset Date Comments [facility] 08/29/2023 Routine outreach Reason Onset Date Comments [facility] 09/26/2023 Routine outreach Reason Onset Date Comments [facility] 10/23/2023 Routine outreach Reason Onset Date Comments [facility] 11/09/2023 Routine outreach Reason Comments 6 Month Exam Reason Comments Flap Curer - Other Reason Onset Date Comments Community Monitoring Outreach 12/06/2023 Fo llow Up Reason Onset Date Comments Community Monitoring Outreach 12/08/2023 Fo llow up Reason Onset Date Comments [facility] 01/04/2024 Routine outreach Reason Onset Date Comments Refill Request 01/15/2024 Reason Onset Date Comments CMD 01/31/2024 Routine outreach Reason Onset Date Comments Refill Request 02/16/2024 Reason Onset Date Comments CDM 02/29/2024 Routine outreach Reason Onset Date Comments CDM 03/27/2024 Routine outreach Reason Onset Date Comments Refill Request 03/28/2024 Reason Onset Date Comments CDM 04/24/2024 Routine outreach Reason Comments Orders poc protime Reason Onset Date Comments CDM 05/15/2024 Routine outreach Reason Comments fax Gastro referral to Dr Flores Reason Comments INR check Reason Onset Date Comments Refill Request 07/22/2024 Reason Onset Date Comments Refill Request 10/03/2024 Reason Comments Medicare Wellness Exam Reason Onset Date Comments Transition Of Care 01/27/2025 Reason Comments senior care plan of care Refill Request Reason Comments PT- [facility] POC and pt update Reason Comments Hospital Discharge Reason Comments OV notes faxed to [facility] Reason Onset Date Comments Anticoagulation 02/18/2025 Care Teams (unrecognized sec tion and content) Certified Green Building Engineer Relationship Specialty Start Date End Date Christopher Bonilla MD [address] [place], [place] [id number] PCP - General Family Practice 10/10/17 Elisabeth Shannon, turbine technicianIn File Operator 02/11/21 Junaid Arriaga [address] [phone] Physician Cardiology 05/04/21 Certified Green Building Engineer Relationship Specialty Start Date End Date Christopher Bonilla MD [address] [place], [place] [address] PCP - General Family Practice 10/10/17 Elisabeth Shannon turbine technicianIn File Operator 02/11/21 Junaid Arriaga [address] [place] [address] [address] [phone] Physician Cardiology 05/04/21 Certified Green Building Engineer Relationship Specialty Start Date End Date Christopher Bonilla MD [address] [place] [address] PCP - General Family Practice 10/10/17 Elisabeth Shannon, turbine technicianIn File Operator 02/11/21 Junaid Arriaga [address] [facility] [address] [place] [address] Physician Cardiology 05/04/21 Certified Green Building Engineer Relationship Specialty Start Date End Date Christopher Bonilla MD [address] [place] [address] PCP - General Family Practice 10/10/17 Elisabeth Shannon, turbine technicianIn File Operator 02/11/21 Junaid Arriaga [address] [facility] [address] [place] [address] Physician Cardiology 05/04/21 Certified Green Building Engineer Relationship Specialty Start Date End Date Christopher Bonilla MD [address] [place] [address] PCP - General Family Practice 10/10/17 Elisabeth Shannon, turbine technicianIn File Operator 02/11/21 Junaid Arriaga [address] [address] Physician Cardiology 05/04/21 Santos Calvin [address] [place] [phone] Physician Urology 09/13/21 Certified Green Building Engineer Relationship Specialty Start Date End Date Christopher Bonilla MD [address] [place] [address] PCP - General Family Practice 10/10/17 Elisabeth Shannon, turbine technicianIn File Operator 02/11/21 Junaid Arriaga [address] [address] Physician Cardiology 05/04/21 [facility] [address] [place] [address] Physician Urology 09/13/21 Certified Green Building Engineer Relationship Specialty Start Date End Date Christopher Bonilla MD [address] [place] [address] PCP - General Family Practice 10/10/17 Elisabeth Shannon, turbine technicianIn File Operator 02/11/21 Junaid Arriaga [address] [place] [address] Physician Cardiology 05/04/21 [facility] [address] [place] [address] Physician Urology 09/13/21 Certified Green Building Engineer Relationship Specialty Start Date End Date Christopher Bonilla MD [address] [place] [address] PCP - General Family Practice 10/10/17 Elisabeth Shannon turbine technicianIn File Operator 02/11/21 Junaid Arriaga [address] [place] [address] Physician Cardiology 05/04/21 [facility] [address] [place] [address] Physician Urology 09/13/21 Certified Green Building Engineer Relationship Specialty Start Date End Date Christopher Bonilla MD [address] [place] [address] PCP - General Family Practice 10/10/17 Elisabeth Shannon, turbine technicianIn File Operator 02/11/21 Junaid Arriaga [address] [place] [address] Physician Cardiology 05/04/21 Santos Calvin [address] [place] [address] Physician Urology 09/13/21 Certified Green Building Engineer Relationship Specialty Start Date End Date Christopher Bonilla MD [address] [place] [address] PCP - General Family Practice 10/10/17 Elisabeth Shannon RN In File Operator 02/11/21 Junaid Arriaga [address] [place] [address] Physician Cardiology 05/04/21 Santos Calvin [address] [place] [address] Physician Urology 09/13/21 Certified Green Building Engineer Relationship Specialty Start Date End Date Christopher Bonilla MD [address] [place] [address] PCP - General Family Practice 10/10/17 Elisabeth Shannon, RN [address] [place] [address] In File Operator 02/11/21 Junaid Arriaga [address] [place] [address] Physician Cardiology 05/04/21 Santos Calvin [address] [place] [address] Physician Urology 09/13/21 Certified Green Building Engineer Relationship Specialty Start Date End Date Christopher Bonilla MD [address] [place] [address] PCP - General Family Practice 10/10/17 Elisabeth Shannon RN [address] [place] [address] In File Operator 02/11/21 Junaid Arriaga [address] [place] [address] Physician Cardiology 05/04/21 [facility] [address] [address] Physician Urology 09/13/21 Certified Green Building Engineer Relationship Specialty Start Date End Date Christopher Bonilla MD [address] [place] [address] PCP - General Family Practice 10/10/17 Elisabeth Shannon RN [address] [place] [address] In File Operator 02/11/21 Junaid Arriaga [address] [address] Physician Cardiology 05/04/[address] [phone] Physician Urology 09/13/21 Certified Green Building Engineer Relationship Specialty Start Date End Date Christopher Bonilla MD [address] [place] [address] PCP - General Family Practice 10/10/17 Elisabeth Shannon RN [address] [place] [address] In File Operator 02/11/21 Junaid Arriaga [address] [facility] [address] [address] Physician Cardiology 05/04/21 Santos Calvin Miguel [address] [phone] Physician Urology 09/13/21 Certified Green Building Engineer Relationship Specialty Start Date End Date Christopher Bonilla MD [address] [place] [address] PCP - General Family Practice 10/10/17 Elisabeth Shannon RN [address] [place], [place] [id number] In File Operator 02/11/21 Junaid Arriaga [address] [place] [place] [phone] Physician Cardiology 05/04/21 Santos Calvin Miguel [address] [address] Physician Urology 09/13/21 Flaquito Mariee [address] [place] [address] Salon Sales Consultant Pulmonary Disease 10/25/21 Certified Green Building Engineer Relationship Specialty Start Date End Date Christopher Bonilla MD [address] [place] [address] PCP - General Family Practice 10/10/17 Elisabeth Shannon RN [address] [place], [place] [id number] In File Operator 02/11/21 Junaid Arriaga [address] [place] [address] Physician Cardiology 05/04/21 Santos Calvinuel [address] [address] Physician Urology 09/13/21 Flaquito Mariee [address] [place] [address] Salon Sales Consultant Pulmonary Disease 10/25/21 Certified Green Building Engineer Relationship Specialty Start Date End Date Christopher Bonilla MD [address] [place] [address] PCP - General Family Practice 10/10/17 Elisabeth Shannon RN [address] [place] [address] In File Operator 02/11/21 Junaid Arriaga [address] [place] [address] Physician Cardiology 05/04/21 Santos Calvin Miguel [address] [place] [address] Physician Urology 09/13/21 Flaquito Mariee [address] [place] [address] Salon Sales Consultant Pulmonary Disease 10/25/21 Certified Green Building Engineer Relationship Specialty Start Date End Date Christopher Bonilla MD [address] [place] [address] PCP - General Family Practice 10/10/17 Elisabeth Shannon RN [address] [place] [address] In File Operator 02/11/21 Junaid Arriaga [address] [place] [address] Physician Cardiology 05/04/21 Santos Calvin Miguel [address] [place] [address] Physician Urology 09/13/21 Flaquito Mariee [address] [place] [address] Salon Sales Consultant Pulmonary Disease 10/25/21 Certified Green Building Engineer Relationship Specialty Start Date End Date Christopher Bonilla MD [address] [place] [address] PCP - General Family Practice 10/10/17 Elisabeth Shannon RN [address] [place] [address] In File Operator 02/11/21 Junaid Arriaga [address] [place] [address] Physician Cardiology 05/04/21 Santos Calvin Miguel [address] [place] [address] Physician Urology 09/13/21 Flaquito Mariee [address] [place] [address] Salon Sales Consultant Pulmonary Disease 10/25/21 Certified Green Building Engineer Relationship Specialty Start Date End Date Christopher Bonilla MD [address] [place] [address] PCP - General Family Practice 10/10/17 Elisabeth Shannon RN [address] [place] [address] In File Operator 02/11/21 Junaid Arriaga [address] [place] [address] Physician Cardiology 05/04/21 Santos Calvin [address] [place] [address] Physician Urology 09/13/21 Flaquito Mariee [address] [place] [place] [address] Salon Sales Consultant Pulmonary Disease 10/25/21 Certified Green Building Engineer Relationship Specialty Start Date End Date Christopher Bonilla MD [address] [place] [address] PCP - General Family Practice 10/10/17 Elisabeth Shannon RN [address] [place] [address] In File Operator 02/11/21 Junaid Arriaga [address] [facility] [address] [place] [address] Physician Cardiology 05/04/21 Santos Calvin [address] [place] [address], [place] [address] Physician Urology 09/13/21 Flaquito Mariee 176 [place] [address] Salon Sales Consultant Pulmonary Disease 10/25/21 Certified Green Building Engineer Relationship Specialty Start Date End Date Christopher Bonilla MD [address] [place] [address] PCP - General Family Practice 10/10/17 Elisabeth Shannon RN [address] [place] [address] In File Operator 02/11/21 Junaid Arriaga 1761 [facility] [address] [place] [address] Physician Cardiology 05/04/21 Santos Calvin [address] [place] [address] Physician Urology 09/13/21 Flaquito Mariee 176 [facility] [place] [address] Salon Sales Consultant Pulmonary Disease 10/25/21 Christopher Bonilla MD [address] [place] [address] Home Care Physician Family Practice 02/03/22 Certified Green Building Engineer Relationship Specialty Start Date End Date Christopher Bonilla MD [address] [place] [address] PCP - General Family Practice 10/10/17 Elisabeth Shannon, RN [address] [place] [address] In File Operator 02/11/21 Junaid Arriaga 1761 [facility] [address] [place] [address] Physician Cardiology 05/04/21 Santos Calvin [address] [place] [address] [address] [place] [address] Physician Urology 09/13/21 Flaquito Mariee [address] [place] [address] Salon Sales Consultant Pulmonary Disease 10/25/21 Christopher Bonilla MD [address] [place] [address] Home Care Physician Family Practice 02/03/22 Mera Langford MD [address] [place], [place] [phone] Referring 02/04/22 Erik Hassan, PEYTON [address] [place], [place] [id number] Document Image Technician Post Acute Care 02/08/22 Certified Green Building Engineer Relationship Specialty Start Date End Date Christopher Bonilla MD [address] [place] [address] PCP - General Family Practice 10/10/17 Elisabeth Shannon, RN [address] [place], [place] 5908331 In File Operator 02/11/21 Junaid Arriaga [address] [address] Physician Cardiology 05/04/21 Santos Calvin [address] [address] Physician Urology 09/13/21 Flaquito Mariee [address] [place], [place] [address]131 Salon Sales Consultant Pulmonary Disease 10/25/21 Christopher Bonilla MD [address] [place] [address] Home Care Physician Family Practice 02/03/22 Mera Langford MD 1 [place], [place] [phone] Referring 02/04/22 Erik Hassan, PEYTON [address] [place], [place] [id number] Document Image Technician Post Acute Care 02/08/22 Certified Green Building Engineer Relationship Specialty Start Date End Date Christopher Bonilla MD [address] [place] [address] PCP - General Family Practice 10/10/17 Elisabeth Shannon, RN [address] [place], [place] [id number] In File Operator 02/11/21 Junaid Arriaga [address] [phone] Physician Cardiology 05/04/21 Santos Calvin [address] [phone] Physician Urology 09/13/21 Flaquito Mariee 1761 [facility] [address] Salon Sales Consultant Pulmonary Disease 10/25/21 Christopher Bonilla MD [address] [place] [address] Home Care Physician Family Practice 02/03/22 Mera Langford MD [address] [place], [place] [phone] Referring 02/04/22 Erik Hassan, PEYOTN [address] [place] [address] Document Image Technician Post Acute Care 02/08/22 Certified Green Building Engineer Relationship Specialty Start Date End Date Christopher Bonilla MD [address] [place] [address] PCP - General Family Practice 10/10/17 Elisabeth Shannon RN [address] [place] [address] In File Operator 02/11/21 Junaid Arriaga 1761 [facility]UST [address] [place] [address] Physician Cardiology 05/04/21 Santos Calvin [address] [place] [address] [address] [place] [address] Physician Urology 09/13/21 Flaquito Mariee 1761 [facility] [address] Salon Sales Consultant Pulmonary Disease 10/25/21 Christopher Bonilla MD [address] [place] [address] Home Care Physician Family Practice 02/03/22 Mera Langford MD 1 [place], [place] [phone] Referring 02/04/22 Erik Hassan, PEYTON [address] [place], [place] [id number] Document Image Technician Post Acute Care 02/08/22 Certified Green Building Engineer Relationship Specialty Start Date End Date Christopher Bonilla MD [address] [place] [address] PCP - General Family Practice 10/10/17 Elisabeth Shannon RN [address] [place] [address] In File Operator 02/11/21 Junaid Arriaga 1761 [facility] [address] [place] [address] Physician Cardiology 05/04/21 Santos Calvin [address] [place] [address] [address] [place] [address] Physician Urology 09/13/21 Flaquito Mariee 1761 [facility] [place] [address] Salon Sales Consultant Pulmonary Disease 10/25/21 Christopher Bonilla MD [address] [place] [address] Home Care Physician Family Practice 02/03/22 Mera Langford MD 1 [place], [place] [phone] Referring 02/04/22 Erik Hassan RN [address] [place] [address] Document Image Technician Post Acute Care 02/08/22 Certified Green Building Engineer Relationship Specialty Start Date End Date Christopher Bonilla MD [address] [place], [place] 926481 PCP - General Family Practice 10/10/17 Elisabeth Shannon RN [address] [place] [address] In File Operator 02/11/21 Junaid Arriaga 176 [facility] 3A [place] [address] Physician Cardiology 05/04/21 Santos Calvin [address] [address] Physician Urology 09/13/21 Flaquito Mariee [address] [facility] [place] [address] Salon Sales Consultant Pulmonary Disease 10/25/21 Christopher Bonilla MD [address] [place] [address] Home Care Physician Family Practice 02/03/22 Mera Langford MD 1 [place], [place] [phone] Referring 02/04/22 Erik Hassan RN [address] [place], [place] [id number] Document Image Technician Post Acute Care 02/08/22 Certified Green Building Engineer Relationship Specialty Start Date End Date Christopher Bonilla MD [address] [place] [address] PCP - General Family Practice 10/10/17 Elisabeth Shannon RN [address] [place] [address] In File Operator 02/11/21 Junaid Arriaga 176 [facility] 3A [place] [address] Physician Cardiology 05/04/21 Santos Calvin [address] [phone] Physician Urology 09/13/21 Flaquito Mariee 1761 [facility] [address] Salon Sales Consultant Pulmonary Disease 10/25/21 Christopher Bonilla MD [address] [place] [address] Home Care Physician Family Practice 02/03/22 Mera Langford MD [address] [place], [place] [phone] Referring 02/04/22 Erik Hassan, PEYTON [address] [place], [place] [id number] Document Image Technician Post Acute Care 02/08/22 Certified Green Building Engineer Relationship Specialty Start Date End Date Christopher Bonilla MD [address] [place] [address] PCP - General Family Practice 10/10/17 Elisabeth Shannon, RN [address] [place] [address] In File Operator 02/11/21 Junaid Arriaga [address] [address] Physician Cardiology 05/04/21 Santos Calvin [address] [phone] Physician Urology 09/13/21 Flaquito Mariee 1761 [facility] [address] Salon Sales Consultant Pulmonary Disease 10/25/21 Christopher Bonilla MD [address] [place], [place] [phone] Home Care Physician Family Practice 02/03/22 Mera Langford MD 1 [place], [place] [phone] Referring 02/04/22 Erik Hassan, PEYTON [address] [place], [place] 7372931 Document Image Technician Post Acute Care 02/08/22 Certified Green Building Engineer Relationship Specialty Start Date End Date Christopher Bonilla MD [address] [place] [address] PCP - General Family Practice 10/10/17 Elisabeth Shannon RN [address] [place] [address] In File Operator 02/11/21 Junaid Arriaga 1761 [facility] [address] [place] [address] Physician Cardiology 05/04/21 Santos Calvin 546 [facility] [address] [place] [address] Physician Urology 09/13/21 Flaquito Mariee 1761 [facility] [place] [address] Salon Sales Consultant Pulmonary Disease 10/25/21 Christopher Bonilla MD [address] [place] [address] Home Care Physician Family Practice 02/03/22 Mera Langford MD 1 [place], [place] [phone] Referring 02/04/22 Erik Hassan, PEYTON [address] [place], [place] [id number] Document Image Technician Post Acute Care 02/08/22 Certified Green Building Engineer Relationship Specialty Start Date End Date Christopher Bonilla MD [address] [place] [address] PCP - General Family Practice 10/10/17 Elisabeth Shannon, PEYTON [address] [place] [address] In File Operator 02/11/21 Junaid Arriaga 176 [facility] [address] [place] [address] Physician Cardiology 05/04/21 Santos Calvin [address] [address] Physician Urology 09/13/21 Flaquito Mariee [address]61 [facility] [place] [address] Salon Sales Consultant Pulmonary Disease 10/25/21 Christopher Bonilla MD [address] [place] [address] Home Care Provider Family Practice 02/03/22 Mera Langford MD [address] [place], [place] [phone] Referring 02/04/22 Erik Hassan RN [address] [place] [address] Document Image Technician Post Acute Care 02/08/22 Certified Green Building Engineer Relationship Specialty Start Date End Date Christopher Bonilla MD [address] [place] [address] PCP - General Family Practice 10/10/17 Elisabeth Shannon RN [address] [place] [address] In File Operator 02/11/21 Junaid Arriaga 176 [facility] [address] [place] [address] Physician Cardiology 05/04/21 Santos Calvin 546 [facility] 210 [place] [address] Physician Urology 09/13/21 Flaquito Mariee 1761 [facility] [place] [address] Salon Sales Consultant Pulmonary Disease 10/25/21 Christopher Bonilla MD [address] [place] [address] Home Care Provider Family Practice 02/03/22 Mera Langford MD 1 [place], [place] [phone] Referring 02/04/22 Erik Hassan, PEYTON [address] [place] [address] Document Image Technician Post Acute Care 02/08/22 Certified Green Building Engineer Relationship Specialty Start Date End Date Christopher Bonilla MD [address] [place] [address] PCP - General Family Practice 10/10/17 Elisabeth Shannon, RN [address] [place] [address] In File Operator 02/11/21 Junaid Arriaga 1761 [facility] [address] [place] [address] Physician Cardiology 05/04/21 Santos Calvin 546 [facility] [address] [place] [address] Physician Urology 09/13/21 Flaquito Mariee [address] [facility] [place] [address] Salon Sales Consultant Pulmonary Disease 10/25/21 Christopher Bonilla MD [address] [place] [address] Home Care Provider Family Practice 02/03/22 Mera Langford MD 1 [place], [place] [phone] Referring 02/04/22 Erik Hassan, PEYTON [address] [place], [place] 4588231 Document Image Technician Post Acute Care 02/08/22 Certified Green Building Engineer Relationship Specialty Start Date End Date Christopher Bonilla MD [address] [place] [address] PCP - General Family Medicine 10/10/17 Elisabeth Shannon RN [address] [place] [address] In File Operator 02/11/21 Junaid Arriaga 1761 [facility] [address] [place] [address] Physician Cardiology 05/04/21 Santos Calvin [address] [place] [phone] Physician Urology 09/13/21 Flaquito Mariee 1761 [facility] [place] [address] Salon Sales Consultant Pulmonary Disease 10/25/21 Christopher Bonilla MD [address] [place], [place] 475861 Home Care Provider Family Medicine 02/03/22 Mera Langford MD 1 [place] [address] Referring 02/04/22 Erik Hassan, PEYTON [address] [place], [place] [id number] Document Image Technician Post Acute Care 02/08/22 Certified Green Building Engineer Relationship Specialty Start Date End Date Christopher Bonilla MD [address] [place] [address] PCP - General Family Medicine 10/10/17 Elisabeth Shannon, RN [address] [place] [address] In File Operator 02/11/21 Junaid Arriaga [address] [place] [address] Physician Cardiology 05/04/21 Santos Calvin [address] [place] [address] [address] [place] [address] Physician Urology 09/13/21 Flaquito Mariee 1761 [facility] [place] [address] Salon Sales Consultant Pulmonary Disease 10/25/21 Christopher Bonilla MD [address] [place] [address] Home Care Provider Family Medicine 02/03/22 Mera Langford MD 1 [place], [place] [phone] Referring 02/04/22 Erik Hassan RN [address] [place] [address] Document Image Technician Post Acute Care 02/08/22 Certified Green Building Engineer Relationship Specialty Start Date End Date Christopher Bonilla MD [address] [place] [address] PCP - General Family Medicine 10/10/17 Elisabeth Shannon, PEYTON [address] [place], [place] 5095931 In File Operator 02/11/21 Junaid Arriaga [address] [facility] [facility] [place] [address] Physician Cardiology 05/04/21 Santos Calvin [address] [phone] Physician Urology 09/13/21 Flaquito Mariee 176 [facility] [place] [place] [address] Salon Sales Consultant Pulmonary Disease 10/25/21 Christopher Bonilla MD [address] [place] [address] Home Care Provider Family Medicine 02/03/22 Mera Langford MD [address] [place], [place] [phone] Referring 02/04/22 Erik Hassan RN [address] [place] [address] Document Image Technician Post Acute Care 02/08/22 Certified Green Building Engineer Relationship Specialty Start Date End Date Christopher Bonilla MD [address] [place] [address] PCP - General Family Medicine 10/10/17 Elisabeth Shannon, RN [address] [place] [address] In File Operator 02/11/21 Junaid Arriaga 176 [facility] 3[address] [place] [address] Physician Cardiology 05/04/21 Santos Calvin [address] [phone] Physician Urology 09/13/21 Flaquito Mariee 176 [facility] [address] Salon Sales Consultant Pulmonary Disease 10/25/21 Christopher Bonilla MD [address] [place], [place] 676971 Home Care Provider Family Medicine 02/03/22 Mera Langford MD 1 [place], [place] [phone] Referring 02/04/22 Erik Hassan RN [address] [place], [place] 4274031 Document Image Technician Post Acute Care 02/08/22 Certified Green Building Engineer Relationship Specialty Start Date End Date Christopher Bonilla MD [address] [place], [place] 251711 PCP - General Family Medicine 10/10/17 Elisabeth Shannon RN [address] [place] [address] In File Operator 02/11/21 Junaid Arriaga 1761 [facility] [address] [place] [address] Physician Cardiology 05/04/21 Santos Calvin [address] [place] [address] [address] [place] [address] Physician Urology 09/13/21 Flaquito Mariee 1761 [facility] [place] [address] Salon Sales Consultant Pulmonary Disease 10/25/21 Christopher Bonilla MD [address] [place] [address] Home Care Provider Family Medicine 02/03/22 Mera Langford MD 1 [place], [place] [phone] Referring 02/04/22 Erik Hassan RN [address] [place], [place] [address]874131 Document Image Technician Post Acute Care 02/08/22 Certified Green Building Engineer Relationship Specialty Start Date End Date Christopher Bonilla MD [address] [place] [address] PCP - General Family Medicine 10/10/17 Elisabeth Shannon, RN [address] [place] [address] In File Operator 02/11/21 Junaid Arriaga [address] [place] [address] Physician Cardiology 05/04/21 Santos Calvin [address] [place] [address] [address] [place] [address] Physician Urology 09/13/21 Flaquito Mariee 1761 [facility] [place] [address] Salon Sales Consultant Pulmonary Disease 10/25/21 Christopher Bonilla MD [address] [place] [address] Home Care Provider Family Medicine 02/03/22 Mera Langford MD 1 [place], [place] [phone] Referring 02/04/22 Erik Hassan RN [address] [place] [address] Document Image Technician Post Acute Care 02/08/22 Certified Green Building Engineer Relationship Specialty Start Date End Date Christopher Bonilla MD [address] [place] [address] PCP - General Family Medicine 10/10/17 Elisabeth Shannon, RN [address] [place] [address] In File Operator 02/11/21 Junaid Arriaga [address] [facility] [facility] [address] [place] [address] Physician Cardiology 05/04/21 Santos Calvin [address] [phone] Physician Urology 09/13/21 Flaquito Mariee 176 [facility] [place] [address] Salon Sales Consultant Pulmonary Disease 10/25/21 Christopher Bonilla MD [address] [place] [address] Home Care Provider Family Medicine 02/03/22 Mera Langford MD 1 [place], [place] [phone] Referring 02/04/22 Erik Hassan, PEYTON [address] [place] [address] Document Image Technician Post Acute Care 02/08/22 Certified Green Building Engineer Relationship Specialty Start Date End Date Christopher Bonilla MD [address] [place] [address] PCP - General Family Medicine 10/10/17 Elisabeth Shannon RN [address] [place] [address] In File Operator 02/11/21 Junaid Arriaga 176 [facility] [address] [place] [address] Physician Cardiology 05/04/21 Santos Calvin [address] [phone] Physician Urology 09/13/21 Flaquito Mariee 176 [facility] [place] [address] Salon Sales Consultant Pulmonary Disease 10/25/21 Christopher Bonilla MD [address] [place], [place] 050941 Home Care Provider Family Medicine 02/03/22 Mera Langford MD 1 [place], [place] [phone] Referring 02/04/22 Erik Hassan RN [address] [place], [place] 9057031 Document Image Technician Post Acute Care 02/08/22 Certified Green Building Engineer Relationship Specialty Start Date End Date Christopher Bonilla MD [address] [place] [address] PCP - General Family Medicine 10/10/17 Elisabeth Shannon RN [address] [place] [address] In File Operator 02/11/21 Junaid Arriaga 1761 [facility] [address] [place] [address] Physician Cardiology 05/04/21 Santos Calvin [address] [place] [address] Physician Urology 09/13/21 Flaquito Mariee [address] [place] [address] Salon Sales Consultant Pulmonary Disease 10/25/21 Christopher Bonilla MD [address] [place] [address] Home Care Provider Family Medicine 02/03/22 Mera Langford MD 1 [place], [place] [phone] Referring 02/04/22 Erik Hassan RN [address] [place] [address] Document Image Technician Post Acute Care 02/08/22 Certified Green Building Engineer Relationship Specialty Start Date End Date Christopher Bonilla MD [address] [place] [address] PCP - General Family Medicine 10/10/17 Elisabeth Shannon, RN [address] [place] [address] In File Operator 02/11/21 Junaid Arriaga [address] [place] [address] Physician Cardiology 05/04/21 Santos Calvin [address] [place] [address] Physician Urology 09/13/21 Flaquito Mariee [address] [place] [address] Salon Sales Consultant Pulmonary Disease 10/25/21 Christopher Bonilla MD [address] [place] [address] Home Care Provider Family Medicine 02/03/22 Mera Langford MD [address] [place], [place] [phone] Referring 02/04/22 Certified Green Building Engineer Relationship Specialty Start Date End Date Christopher Bonilla MD [address] [place] [address] PCP - General Family Medicine 10/10/17 Elisabeth Shannon, RN [address] [place] [address] In File Operator 02/11/21 Junaid Arriaga [address] [place] [address] Physician Cardiology 05/04/21 Santos Calvin [address] [address] Physician Urology 09/13/21 Flaquito Mariee [address] [place] [address] Salon Sales Consultant Pulmonary Disease 10/25/21 Christopher Bonilla MD [address] [place] [address] Home Care Provider Family Medicine 02/03/22 Mera Langford MD [address] [place], [place] [phone] Referring 02/04/22 Certified Green Building Engineer Relationship Specialty Start Date End Date Christopher Bonilla MD [address] [place], [place] 286191 PCP - General Family Medicine 10/10/17 Elisabeth Shannon, RN [address] [place] [address] In File Operator 02/11/21 Junaid Arriaga 1761 [facility] [address] [place] [address] Physician Cardiology 05/04/21 Santos Calvin [address] [address] Physician Urology 09/13/21 Flaquito Mariee [address] [place] [address] Salon Sales Consultant Pulmonary Disease 10/25/21 Christopher Bonilla MD [address] [place] [address] Home Care Provider Family Medicine 02/03/22 Mera Langford MD 1 [place], [place] [phone] Referring 02/04/22 Certified Green Building Engineer Relationship Specialty Start Date End Date Christopher Bonilla MD [address] [place], [place] 801541 PCP - General Family Medicine 10/10/17 Elisabeth Shannon RN [address] [place] [address] In File Operator 02/11/21 Junaid Arriaga [address] [facility] [address] [place] [address] Physician Cardiology 05/04/21 Santos Calvin [address] [place] [address] [address] [place] [address] Physician Urology 09/13/21 Flaquito Mariee [address] [facility] [place] [address] Salon Sales Consultant Pulmonary Disease 10/25/21 Christopher Bonilla MD [address] [place], [place] 818261 Home Care Provider Family Medicine 02/03/22 Mera Langford MD [address] [place], [place] [phone] Referring 02/04/22 Certified Green Building Engineer Relationship Specialty Start Date End Date Christopher Bonilla MD [address] [place] [address] PCP - General Family Medicine 10/10/17 Elisabeth Shannon RN [address] [place] [address] In File Operator 02/11/21 Junaid Arriaga [address] [place] [address] Physician Cardiology 05/04/21 Santos Calvin [address] [address] Physician Urology 09/13/21 Flaquito Mariee [address] [place] [address] Salon Sales Consultant Pulmonary Disease 10/25/21 Christopher Bonilla MD [address] [place] [address] Home Care Provider Family Medicine 02/03/22 Mera Langford MD [address] [place], [place] [phone] Referring 02/04/22 Certified Green Building Engineer Relationship Specialty Start Date End Date Christopher Bonilla MD [address] [place] [address] PCP - General Family Medicine 10/10/17 Elisabeth Shannon, RN [address] [place] [address] In File Operator 02/11/21 Junaid Arriaga 1761 [facility] [address] [place] [address] Physician Cardiology 05/04/21 Santos Calvin [address] [address] Physician Urology 09/13/21 Flaquito Mariee [address] [place] [address] Salon Sales Consultant Pulmonary Disease 10/25/21 Christopher Bonilla MD [address] [place] [address] Home Care Provider Family Medicine 02/03/22 Mera Langford MD 1 [place] [address] Referring 02/04/22 Certified Green Building Engineer Relationship Specialty Start Date End Date Christopher Bonilla MD [address] [place] [address] PCP - General Family Medicine 10/10/17 Elisabeth Shannon RN [address] [place] [address] In File Operator 02/11/21 Junaid Arriaga [address] [place] [address] Physician Cardiology 05/04/21 Santos Calvin [address] [place] [address] [address] [place] [address] Physician Urology 09/13/21 Flaquito Mariee [address] [place] [address] Salon Sales Consultant Pulmonary Disease 10/25/21 Christopher Bonilla MD [address] [place] [address] Home Care Provider Family Medicine 02/03/22 Mera Langford MD [address] [place] [address] Referring 02/04/22 Certified Green Building Engineer Relationship Specialty Start Date End Date Christopher Bonilla MD [address] [place] [address] PCP - General Family Medicine 10/10/17 Elisabeth Shannon RN [address] [place] [address] In File Operator 02/11/21 Junaid Arriaga [address] [place] [address] Physician Cardiology 05/04/21 Santos Calvin MD [address] [address] Physician Urology 09/13/21 Flaquito Mariee [address] [place] [address] Salon Sales Consultant Pulmonary Disease 10/25/21 Christopher Bonilla MD [address] [place] [address] Home Care Provider Family Medicine 02/03/22 Mera Langford MD 1 [place], [place] [phone] Referring 02/04/22 Certified Green Building Engineer Relationship Specialty Start Date End Date Christopher Bonilla MD [address] [place] [address] PCP - General Family Medicine 10/10/17 Elisabeth Shannon, RN [address] [place] [address] In File Operator 02/11/21 Junaid Arriaga [address] [facility] [address] [address] [place] [address], [place] [address] Physician Cardiology 05/04/21 Santos Calvin MD [address] [address] Physician Urology 09/13/21 Flaquito Mariee [address] [place] [address] Salon Sales Consultant Pulmonary Disease 10/25/21 Christopher Bonilla MD [address] [place] [address] Home Care Provider Family Medicine 02/03/22 Mera Langford MD [address] [place], [place] [phone] Referring 02/04/22 Certified Green Building Engineer Relationship Specialty Start Date End Date Christopher Bonilla MD [address] [place] [address] PCP - General Family Medicine 10/10/17 Elisabeth Shannon RN [address] [place] [address] In File Operator 02/11/21 Junaid Arriaga [address] [place] [address] Physician Cardiology 05/04/21 Santos Calvin MD 546 [facility] 210 [place] [address] Physician Urology 09/13/21 Flaquito Mariee [address] [place] [address] Salon Sales Consultant Pulmonary Disease 10/25/21 Christopher Bonilla MD [address] [place] [address] Home Care Provider Family Medicine 02/03/22 Mera Langford MD 1 [place] [address] Referring 02/04/22 Certified Green Building Engineer Relationship Specialty Start Date End Date Christopher Bonilla MD [address] [place], [place] [address]471 PCP - General Family Medicine 10/10/17 Elisabeth Shannon RN [address] [place] [address] In File Operator 02/11/21 Junaid Arriaga [address] [place] [address] Physician Cardiology 05/04/21 Santos Calvin MD [address] [place] [address] Physician Urology 09/13/21 Flaquito Mariee 176 [facility] [place] [address] Salon Sales Consultant Pulmonary Disease 10/25/21 Christopher Bonilla MD [address] [place] [address] Home Care Provider Family Medicine 02/03/22 Mera Langford MD 1 [place], [place] [phone] Referring 02/04/22 Certified Green Building Engineer Relationship Specialty Start Date End Date Christopher Bonilla MD [address] [place] [address] PCP - General Family Medicine 10/10/17 Elisabeth Shannon, RN [address] [place] [address] In File Operator 02/11/21 Junaid Arriaga 1761 [facility] [address] [address] Physician Cardiology 05/04/21 Santos Calvin MD [address] [address] Physician Urology 09/13/21 Flaquito Mariee 176 [facility] [place] [address] Salon Sales Consultant Pulmonary Disease 10/25/21 Christopher Bonilla MD [address] [place] [address] Home Care Provider Family Medicine 02/03/22 Mera Langford MD 1 [place], [place] [phone] Referring 02/04/22 Certified Green Building Engineer Relationship Specialty Start Date End Date Christopher Bonilla MD [address] [place], [place] [address]231 PCP - General Family Medicine 10/10/17 Elisabeth Shannon, RN [address] [place], [place] [phone] In File Operator 02/11/21 Junaid Arriaga [address] [facility] [address] [address] [place] [address] Physician Cardiology 05/04/21 Santos Calvin MD [address] [place] [address] Physician Urology 09/13/21 Flaquito Mariee [address] [place] [address] [place] [address] Salon Sales Consultant Pulmonary Disease 10/25/21 Christopher Bonilla MD [address] [place] [address] Home Care Provider Family Medicine 02/03/22 Mera Langford MD 1 [place], [place] [phone] Referring 02/04/22 Certified Green Building Engineer Relationship Specialty Start Date End Date Christopher Bonilla MD [address] [place], [place] [id number] PCP - General Family Medicine 10/10/17 Elisabeth Shannon RN [address] [place] [address] In File Operator 02/11/21 Junaid Arriaga [address] [place] [address] Physician Cardiology 05/04/21 Santos Calvin MD [address] [place] [address] Physician Urology 09/13/21 Flaquito Mariee [address] [place] [address] Salon Sales Consultant Pulmonary Disease 10/25/21 Christopher Bonilla MD [address] [place] [address] Home Care Provider Family Medicine 02/03/22 Mera Langford MD 1 [place], [place] [phone] Referring 02/04/22 Certified Green Building Engineer Relationship Specialty Start Date End Date Christopher Bonilla MD [address] [place] [address] PCP - General Family Medicine 10/10/17 Elisabeth Shannon, RN [address] [place] [address] In File Operator 02/11/21 Junaid Arriaga [address] [place] [address] Physician Cardiology 05/04/21 Santos Calvin MD [address] [place] [address] Physician Urology 09/13/21 Flaquito Mariee [address] [place] [place] [address] Salon Sales Consultant Pulmonary Disease 10/25/21 Christopher Bonilla MD [address] [place] [address] Home Care Provider Family Medicine 02/03/22 Mera Langford MD 1 [place], [place] [phone] Referring 02/04/22 Certified Green Building Engineer Relationship Specialty Start Date End Date Christopher Bonilla MD [address] [place] [address] PCP - General Family Medicine 10/10/17 Elisabeth Shannon RN [address] [place] [address] In File Operator 02/11/21 Junaid Arriaga [address] [facility] [address] [place] [address] Physician Cardiology 05/04/21 Santos Calvin MD [address] [place] [address] 210 [place] [address] Physician Urology 09/13/21 Flaquito Mariee [address] [facility] [place] [address] Salon Sales Consultant Pulmonary Disease 10/25/21 Christopher Bonilla MD [address] [place] [address] Home Care Provider Family Medicine 02/03/22 Mera Langford MD 1 [place], [place] [phone] Referring 02/04/22 Certified Green Building Engineer Relationship Specialty Start Date End Date Christopher Bonilla MD [address] [place] [address] PCP - General Family Medicine 10/10/17 Elisabeth Shannon RN [address] [place] [address] In File Operator 02/11/2107/07 Junaid Arriaga [address] [place] [address] Physician Cardiology 05/04/21 Santos Calvin MD 546 [facility] [address] [place] [address] Physician Urology 09/13/21 Flaquito Mariee [address] [facility] [place] [address] Salon Sales Consultant Pulmonary Disease 10/25/21 Christopher Bonilla MD [address] [place], [place] 086431 Home Care Provider Family Medicine 02/03/22 Mera Langford MD 1 [place], [place] [phone] Referring 02/04/22 Erik Hassan, [place] [address] [place], [place] [id number] Document Image Technician Post Acute Care 02/08/22 03/08/22 Concha Rocha, turbine technicianIn File Operator 07/08/22 Team Status: Active Member Role Status Dates Dr. Christopher Bonilla MD Family Provider Active Dr. Christopher Bonilla MD Primary Care Provider Active Team Status: Inactive Member Role Status Dates Dr. Christopher Bonilla MD Primary Care Provider, Referring Provider Active Amy Cummings CLICKING MACHINE OPERATOR, CLICKING MACHINE OPERATOR-C Attending Provider Active Team Status: Active Member Role Status Dates Dr. Flaquito Mariee MD Referring Provider, Other Provid er Active Dr. Christopher Bonilla MD Primary Care Provider Active Dr. Dwayne Garcia DO Attending Provider Active Team Status: Inactive Member Role Status Dates Dr. Christopher Bonilla MD Primary Care Provider, Referring Provider Active Yanely Camejo PA, PA Active Hima Tijerina CLICKING MACHINE OPERATOR, CLICKING MACHINE OPERATOR-C Attending Provider Active Team Status: Inactive Member Role Status Dates Dr. Christopher Bonilla MD Primary Care Provider, Referring Provider Active Dr. Abimael Evans MD Attending Provider Active Team Status: Inactive Member Role Status Dates Dr. Flaquito Mariee MD Attending Provider, Referring Pr ovider Active Dr. Christopher Bonilla MD Primary Care Provider Active Team Status: Inactive Member Role Status Dates Dr. Christopher Bonilla MD Primary Care Provider Active Dr. Flaquito Mariee MD Attending Provider, Referring Pr ovider Active Team Status: Inactive Member Role Status Dates Dr. Christopher Bonilla MD Attending Provider Active Team Status: Inactive Member Role Status Dates Dr. Christopher Bonilla MD Primary Care Provider Active Dr. Abimael Evans MD Attending Provider Active Certified Green Building Engineer Relationship Specialty Start Date End Date Christopher Bonilla MD [address] [place] [address] PCP - General Family Medicine 10/10/17 Junaid Arriaga [address] [place] [address] Physician Cardiology 05/04/21 Santos Calvin MD [address] [place] [address], [place] [address] Physician Urology 09/13/21 Flaquito Mariee [address] [facility] [place] [address] Salon Sales Consultant Pulmonary Disease 10/25/21 Christopher Bonilla MD [address] [facility], [place] [address] Home Care Provider Family Medicine 02/03/22 Mera Langford MD 1 [place], [place] [phone] Referring 02/04/22 Concha Rocha, turbine technicianIn File Operator 07/08/22 Certified Green Building Engineer Relationship Specialty Start Date End Date Christopher Bonilla MD [address] [facility], [place] [address] PCP - General Family Medicine 10/10/17 Junaid Arriaga [address] [place] [address] Physician Cardiology 05/04/21 Santos Calvin MD [address] [place] [address] Physician Urology 09/13/21 Flaquito Mariee [address] [place] [address] Salon Sales Consultant Pulmonary Disease 10/25/21 Christopher Bonilla MD [address] [place] [address] Home Care Provider Family Medicine 02/03/22 Mera Langford MD 1 [place], [place] [phone] Referring 02/04/22 Concha Rocha, turbine technicianIn File Operator 07/08/22 Certified Green Building Engineer Relationship Specialty Start Date End Date Christopher Bonilla MD [address] [place] [address] PCP - General Family Medicine 10/10/17 Junaid Arriaga [address] [place] [address] Physician Cardiology 05/04/21 Santos Calvin MD [address] [place] [address] Physician Urology 09/13/21 Flaquito Mariee [address] [place] [address] Salon Sales Consultant Pulmonary Disease 10/25/21 Christopher Bonilla MD [address] [place] [address] Home Care Provider Family Medicine 02/03/22 Mera Langford MD 1 [place] [address] Referring 02/04/22 Concha Rocha, turbine technicianIn File Operator 07/08/22 Certified Green Building Engineer Relationship Specialty Start Date End Date Christopher Bonilla MD [address] [place] [address] PCP - General Family Medicine 10/10/17 Junaid Arriaga [address] [place] [address] Physician Cardiology 05/04/21 Santos Calvin MD [address] [place] [address] Physician Urology 09/13/21 Flaquito Mariee [address] [place] [address] Salon Sales Consultant Pulmonary Disease 10/25/21 Christopher Bonilla MD [address] [place] [address] Home Care Provider Family Medicine 02/03/22 Mera Langford MD 1 [place] [address] Referring 02/04/22 Concha Rocha, turbine technicianIn File Operator 07/08/22 Certified Green Building Engineer Relationship Specialty Start Date End Date Christopher Bonilla MD [address] [place] [address] PCP - General Family Medicine 10/10/17 Junaid Arriaga [address] [place] [address] Physician Cardiology 05/04/21 Santos Calvin MD [address] [place] [address] Physician Urology 09/13/21 Flaquito Mariee 1761 [facility] [address] Salon Sales Consultant Pulmonary Disease 10/25/21 Christopher Bonilla MD [address] [place] [address] Home Care Provider Family Medicine 02/03/22 Mera Langford MD 1 [place], [place] [phone] Referring 02/04/22 Concha Rocha, turbine technicianIn File Operator 07/08/22 Certified Green Building Engineer Relationship Specialty Start Date End Date Christopher Bonilla MD [address] [place] [address] PCP - General Family Medicine 10/10/17 Junaid Arriaga 176 [facility] [address] [place] [address] Physician Cardiology 05/04/21 Santos Calvin MD [address] [place] [address], [place] [address] Physician Urology 09/13/21 Flaquito Mariee 176 [facility] [address] Salon Sales Consultant Pulmonary Disease 10/25/21 Christopher Bonilla MD [address] [place] [address] Home Care Provider Family Medicine 02/03/22 Mera Langford MD 1 [place], [place] [phone] Referring 02/04/22 Concha Rocha, turbine technicianIn File Operator 07/08/22 Certified Green Building Engineer Relationship Specialty Start Date End Date Christopher Bonilla MD [address] [place] [address] PCP - General Family Medicine 10/10/17 Junaid Arriaga [address] [place] [address] Physician Cardiology 05/04/21 Santos Calvin MD [address] [place] [address] Physician Urology 09/13/21 Flaquito Mariee [address] [place] [place] [address] Salon Sales Consultant Pulmonary Disease 10/25/21 Christopher Bonilla MD [address] [place] [address] Home Care Provider Family Medicine 02/03/22 Mera Langford MD 1 [place], [place] [phone] Referring 02/04/22 Concha Rocha, turbine technicianIn File Operator 07/08/22 Certified Green Building Engineer Relationship Specialty Start Date End Date Christopher Bonilla MD [address] [place] [address] PCP - General Family Medicine 10/10/17 Junaid Arriaga [address] [place] [address] Physician Cardiology 05/04/21 Santos Calvin MD [address] [place] [address] Physician Urology 09/13/21 Flaquito Mariee [address] [place] [address] Salon Sales Consultant Pulmonary Disease 10/25/21 Christopher Bonilla MD [address] [facility], [place] 541751 Home Care Provider Family Medicine 02/03/22 Mera Langford MD 1 [place] [address] Referring 02/04/22 Concha Rocha, turbine technicianIn File Operator 07/08/22 Certified Green Building Engineer Relationship Specialty Start Date End Date Christopher Bonilla MD [address] [place] [address] PCP - General Family Medicine 10/10/17 Junaid Arriaga [address] [place] [address] Physician Cardiology 05/04/21 Santos Calvin MD [address] [place] [address], [place] [address] Physician Urology 09/13/21 Flaquito Mariee [address] [facility] [place] [address] Salon Sales Consultant Pulmonary Disease 10/25/21 Christopher Bonilla MD [address] [place] [address] Home Care Provider Family Medicine 02/03/22 Mera Langford MD 1 [place] [address] Referring 02/04/22 Concha Rocha, turbine technicianIn File Operator 07/08/22 Certified Green Building Engineer Relationship Specialty Start Date End Date Christopher Bonilla MD [address] [place] [address] PCP - General Family Medicine 10/10/17 Junaid Arriaga 176 [facility] [address] [address] [place] [address] Physician Cardiology 05/04/21 Santos Calvin MD [address] [place] [address] Physician Urology 09/13/21 Flaquito Mariee 176 [facility] [address] Salon Sales Consultant Pulmonary Disease 10/25/21 Christopher Bonilla MD [address] [place] [address] Home Care Provider Family Medicine 02/03/22 Mera Langford MD 1 [place], [place] [phone] Referring 02/04/22 Concha Rocha, turbine technicianIn File Operator 07/08/22 Certified Green Building Engineer Relationship Specialty Start Date End Date Christopher Bonilla MD [address] [place] [address] PCP - General Family Medicine 10/10/17 Junaid Arriaga 17[address] [facility] [address] [place] [address] Physician Cardiology 05/04/21 Santos Calvin MD [address] [place] [address] Physician Urology 09/13/21 Flaquito Mariee 176 [facility] [place] [address] Salon Sales Consultant Pulmonary Disease 10/25/21 Christopher Bonilla MD [address] [place] [address] Home Care Provider Family Medicine 02/03/22 Mera Langford MD 1 [place] [address] Referring 02/04/22 Concha Rocha, turbine technicianIn File Operator 07/08/22 Certified Green Building Engineer Relationship Specialty Start Date End Date Christopher Bonilla MD [address] [facility], [place] 994091 PCP - General Family Medicine 10/10/17 Junaid Arriaga [address] [place] [address] Physician Cardiology 05/04/21 Santos Calvin MD [address] [place] [address] Physician Urology 09/13/21 Flaquito Mariee [address] [place] [address] Salon Sales Consultant Pulmonary Disease 10/25/21 Christopher Bonilla MD [address] [place] [address] Home Care Provider Family Medicine 02/03/22 Mera Langford MD 1 [place] [address] Referring 02/04/22 Concha Rocha, turbine technicianIn File Operator 07/08/22 Certified Green Building Engineer Relationship Specialty Start Date End Date Christopher Bonilla MD [address] [place] [address] PCP - General Family Medicine 10/10/17 Junaid Arriaga [address] [place] [address] Physician Cardiology 05/04/21 Santos Calvin MD [address], [place] 36[address] Physician Urology 09/13/21 Flaquito Mariee [address] [place] [address] Salon Sales Consultant Pulmonary Disease 10/25/21 Christopher Bonilla MD [address] [place] [address] Home Care Provider Family Medicine 02/03/22 Mera Langford MD 1 [place], [place] [phone] Referring 02/04/22 Concha Rocha, turbine technicianIn File Operator 07/08/22 Certified Green Building Engineer Relationship Specialty Start Date End Date Christopher Bonilla MD [address] [place] [address] PCP - General Family Medicine 10/10/17 Junaid Arriaga [address]61 [facility] [address] [place] [address] Physician Cardiology 05/04/21 Santos Calvin MD [address] [address] Physician Urology 09/13/21 Flaquito Mariee [address] [place] [place] [address] Salon Sales Consultant Pulmonary Disease 10/25/21 Christopher Bonilla MD [address] [place] [address] Home Care Provider Family Medicine 02/03/22 Mera Langford MD 1 [place], [place] [phone] Referring 02/04/22 Concha Rocha, turbine technicianIn File Operator 07/08/22 Certified Green Building Engineer Relationship Specialty Start Date End Date Christopher Bonilla MD [address] [facility], [place] 440281 PCP - General Family Medicine 10/10/17 Junaid Arriaga 17[address] [facility] [address] [place] [address] Physician Cardiology 05/04/21 Santos Calvin MD [address] [place] [address] 210 [place], [place] [address] Physician Urology 09/13/21 Flaquito Mariee 176 [facility] [place], [place] [address] Salon Sales Consultant Pulmonary Disease 10/25/21 Christopher Bonilla MD [address] [facility], [place] 213131 Home Care Provider Family Medicine 02/03/22 Mera Langford MD 1 [place], [place] [phone] Referring 02/04/22 Concha Rocha, turbine technicianIn File Operator 07/08/22 Team Status: Inactive Member Role Status Dates Dr. Christopher Bonilla MD Primary Care Provider, Referring Provider Active Dr. Flaquito Mariee MD Attending Provider Active Team Status: Inactive Member Role Status Dates Dr. Christopher Bonilla MD Primary Care Provider Active Dr. Abimael Evans MD Attending Provider, Referring Provider Active Certified Green Building Engineer Relationship Specialty Start Date End Date Christopher Bonilla MD [address] [facility], [place] 219721 PCP - General Family Medicine 10/10/17 Junaid Arriaga 176 [facility] [address] [place] [address] Physician Cardiology 05/04/21 Santos Calvin MD [address], [place] 804051 Physician Urology 09/13/21 Flaquito Mariee [address] [place] [address] Salon Sales Consultant Pulmonary Disease 10/25/21 Christopher Bonilla MD [address] [place] [address] Home Care Provider Family Medicine 02/03/22 Mera Langford MD 1 [place] [address] Referring 02/04/22 Jolene Osuna RN In File Operator 12/20/22 Certified Green Building Engineer Relationship Specialty Start Date End Date Christopher Bonilla MD [address] [facility], [place] 274861 PCP - General Family Medicine 10/10/17 Junaid Arraiga [address] [facility] [address]IA [address] [place] [address] Physician Cardiology 05/04/21 Santos Calvin MD [address] [place] [address] Physician Urology 09/13/21 Flaquito Mariee [address] [place] [address] Salon Sales Consultant Pulmonary Disease 10/25/21 Christopher Bonilla MD [address] [place] [address] Home Care Provider Family Medicine 02/03/22 Mera Langford MD 1 [place], [place] [phone] Referring 02/04/22 Jolene Osuna, turbine technicianIn File Operator 12/20/22 Certified Green Building Engineer Relationship Specialty Start Date End Date Christopher Bonilla MD [address] [place], [place] 223471 PCP - General Family Medicine 10/10/17 Junaid Arriaga [address] [id number] Physician Cardiology 05/04/21 Santos Calvin MD [address] [place] [address] Physician Urology 09/13/21 Flaquito Mariee [address] [place] [address] Salon Sales Consultant Pulmonary Disease 10/25/21 Christopher Bonilla MD [address] [place] [address] Home Care Provider Family Medicine 02/03/22 Mera Langford MD 1 [place], [place] [phone] Referring 02/04/22 Jolene Osuna, turbine technicianIn File Operator 12/20/22 Certified Green Building Engineer Relationship Specialty Start Date End Date Christopher Bonilla MD [address] [place], [place] [id number] PCP - General Family Medicine 10/10/17 Junaid Arriaga [address] [place] [address] Physician Cardiology 05/04/21 Santos Calvin MD [address] [address] Physician Urology 09/13/21 Flaquito Mariee [address] [place], [place] [address] Salon Sales Consultant Pulmonary Disease 10/25/21 Christopher Bonilla MD [address] [place] [address] Home Care Provider Family Medicine 02/03/22 Mera Langford MD 1 [place] [address] Referring 02/04/22 Jolene Osuna, turbine technicianIn File Operator 12/20/22 Certified Green Building Engineer Relationship Specialty Start Date End Date Christopher Bonilla MD [address] [place], [place] 139061 PCP - General Family Medicine 10/10/17 Junaid Arriaga [address] [place] [address] Physician Cardiology 05/04/21 Santos Calvin MD [address] [address] Physician Urology 09/13/21 Flaquito Mariee MD [address] [place] [address] Salon Sales Consultant Pulmonary Disease 10/25/21 Christopher Bonilla MD [address] [place] [address] Home Care Provider Family Medicine 02/03/22 Mera Langford MD 1 [place] [address] Referring 02/04/22 Jolene Osuna, turbine technicianIn File Operator 12/20/22 Certified Green Building Engineer Relationship Specialty Start Date End Date Christopher Bonilla MD [address] [place] [address] PCP - General Family Medicine 10/10/17 Junaid Arriaga [address] [place] [address] Physician Cardiology 05/04/21 Santos Calvin MD [address] [place] [address] 335351 Physician Urology 09/13/21 Flaquito Mariee MD [address] [place] [address] Salon Sales Consultant Pulmonary Disease 10/25/21 Christopher Bonilla MD [address] [place] [address] Home Care Provider Family Medicine 02/03/22 Mera Langford MD 1 [place] [address] Referring 02/04/22 Jolene Osuna, turbine technicianIn File Operator 12/20/22 Certified Green Building Engineer Relationship Specialty Start Date End Date Christopher Bonilla MD [address] [place], [place] 451111 PCP - General Family Medicine 10/10/17 Junaid Arriaga 176 [facility] [address] [place] [id number] Physician Cardiology 05/04/21 Santos Calvin MD [address] [place] [address] Physician Urology 09/13/21 Flaquito Mariee MD [address] [place] [address] Salon Sales Consultant Pulmonary Disease 10/25/21 Christopher Bonilla MD [address] [place], [place] 087761 Home Care Provider Family Medicine 02/03/22 Mera Langford MD 1 [place] [address] Referring 02/04/22 Jolene Osuna, turbine technicianIn File Operator 12/20/22 Certified Green Building Engineer Relationship Specialty Start Date End Date Christopher Bonilla MD [address] [place], [place] 025671 PCP - General Family Medicine 10/10/17 Junaid Arriaga [address] [phone] Physician Cardiology 05/04/21 Santos Calvin MD [address] [address] Physician Urology 09/13/21 Flaquito Mariee MD 176 [facility] [address] Salon Sales Consultant Pulmonary Disease 10/25/21 Christopher Bonilla MD 174 [place] [address] Home Care Provider Family Medicine 02/03/22 Mera Langford MD 1 [place] [address] Referring 02/04/22 Jolene Osuna, turbine technicianIn File Operator 12/20/22 Certified Green Building Engineer Relationship Specialty Start Date End Date Christopher Bonilla MD [address] [place], [place] 310251 PCP - General Family Medicine 10/10/17 Junaid Arriaga 176 [facility] [address] [phone] Physician Cardiology 05/04/21 Santos Calvin MD [address] [id number] Physician Urology 09/13/21 Flaquito Mariee MD [address] [place] [address] Salon Sales Consultant Pulmonary Disease 10/25/21 Christopher Bonilla MD [address] [place], [place] 277931 Home Care Provider Family Medicine 02/03/22 Mera Langford MD 1 [place], [place] [phone] Referring 02/04/22 Jolene Osuna, turbine technicianIn File Operator 12/20/22 Certified Green Building Engineer Relationship Specialty Start Date End Date Christopher Bonilla MD 174 [place], [place] [id number] PCP - General Family Medicine 10/10/17 Junaid Arriaga 1761 [facility] [address] [phone] Physician Cardiology 05/04/21 Santos Calvin MD [address] [place] [address] [phone] Physician Urology 09/13/21 Flaquito Mariee MD [address] [place] [address] Salon Sales Consultant Pulmonary Disease 10/25/21 Christopher Bonilla MD [address] [place], [place] [id number] Home Care Provider Family Medicine 02/03/22 Mera Langford MD 1 [place], [place] [phone] Referring 02/04/22 Jolene Osuna, turbine technicianIn File Operator 12/20/22 Team Status: Active Member Role Status Dates Dr. Christopher Bonilla MD Primary Care Provider, Referring Provider Active Dr. Abimael Evans MD Attending Provider, Other Prov ider Active Certified Green Building Engineer Relationship Specialty Start Date End Date Christopher Bonilla MD 174 [place] [address] PCP - General Family Medicine 10/10/17 Junaid Arriaga 176 [facility] [address] [place] [phone] Physician Cardiology 05/04/21 Santos Calvin MD [address] [place] [address] Physician Urology 09/13/21 Flaquito Mariee MD 176 [place] [address] Salon Sales Consultant Pulmonary Disease 10/25/21 Christopher Bonilla MD [address] [place] [address] Home Care Provider Family Medicine 02/03/22 Mera Langford MD 1 [place] [address] Referring 02/04/22 Jolene Osuna, turbine technicianIn File Operator 12/20/22 Certified Green Building Engineer Relationship Specialty Start Date End Date Christopher Bonilla MD 174 [place] [address] PCP - General Family Medicine 10/10/17 Junaid Arriaga [address] [address] Physician Cardiology 05/04/21 Santos Calvin MD [address] [address] Physician Urology 09/13/21 Flaquito Mariee MD [address] [place] [address] Salon Sales Consultant Pulmonary Disease 10/25/21 Christopher Bonilla MD [address] [place], [place] [id number] Home Care Provider Family Medicine 02/03/22 Mera Langford MD 1 [place] [address] Referring 02/04/22 Jolene Osuna, turbine technicianIn File Operator 12/20/22 Certified Green Building Engineer Relationship Specialty Start Date End Date Christopher Bonilla MD [address] [place], [place] 898601 PCP - General Family Medicine 10/10/17 Junaid Arriaga [address] [phone] Physician Cardiology 05/04/21 Santos Calvin MD [address] [phone] Physician Urology 09/13/21 Flaquito Mariee MD [address] [place] [address] Salon Sales Consultant Pulmonary Disease 10/25/21 Christopher Bonilla MD [address] [place], [place] 429891 Home Care Provider Family Medicine 02/03/22 Mera Langford MD 1 [place], [place] [phone] Referring 02/04/22 Concha Rocha, turbine technicianIn File Operator 07/08/22 3 Certified Green Building Engineer Relationship Specialty Start Date End Date Christopher Bonilla MD 174 [place], [place] [id number] PCP - General Family Medicine 10/10/17 Junaid Arriaga 1761 [facility] [address] [phone] Physician Cardiology 05/04/21 Santos Calvin MD [address] [place] [address] [phone] Physician Urology 09/13/21 Flaquito Mariee MD [address]61 [place] [address] Salon Sales Consultant Pulmonary Disease 10/25/21 Christopher Bonilla MD [address] [place], [place] [phone] Home Care Provider Family Medicine 02/03/22 Mera Langford MD 1 [place], [place] [phone] Referring 02/04/22 Concha RochaPEYTONturbine technicianIn File Operator 07/08/22 3 Certified Green Building Engineer Relationship Specialty Start Date End Date Christopher Bonilla MD 174 [place], [place] 179671 PCP - General Family Medicine 10/10/17 Junaid Arriaga 176 [facility] [address] [place] [address] Physician Cardiology 05/04/21 Santos Calvin MD [address] [address] Physician Urology 09/13/21 Flaquito Mariee MD 176 [place] [address] Salon Sales Consultant Pulmonary Disease 10/25/21 Christopher Bonilla MD 174 [place] [address] Home Care Provider Family Medicine 02/03/22 Mera Langford MD 1 [place] [address] Referring 02/04/22 Concha Rocha RN In File Operator 07/08/22 3 Certified Green Building Engineer Relationship Specialty Start Date End Date Christopher Bonilla MD 174 [place] [address] PCP - General Family Medicine 10/10/17 Elisabeth Shannon RN 6[address] [place] [address] In File Operator 02/11/2107/07 Junaid Arriaga [address] [place] [address] Physician Cardiology 05/04/21 Santos Calvin MD [address] [place] [address] Physician Urology 09/13/21 Flaquito Mariee MD [address] [place] [address] Salon Sales Consultant Pulmonary Disease 10/25/21 Christopher Bonilla MD [address] [place] [address] Home Care Provider Family Medicine 02/03/22 Mera Langford MD 1 [place] [address] Referring 02/04/22 Certified Green Building Engineer Relationship Specialty Start Date End Date Christopher Bonilla MD [address] [place] [address] PCP - General Family Medicine 10/10/17 Junaid Arriaga MD [address] [place] [address] Physician Cardiology 05/04/21 Santos Calvin MD [address] [place] [address] Physician Urology 09/13/21 Flaquito Mariee MD [address] [place] [address] Salon Sales Consultant Pulmonary Disease 10/25/21 Christopher Bonilla MD [address] [place], [place] 207831 Home Care Provider Family Medicine 02/03/22 Mera Langford MD 1 [place], [place] [phone] Referring 02/04/22 Jolene Osuna, turbine technicianIn File Operator 12/20/22 Certified Green Building Engineer Relationship Specialty Start Date End Date Christopher Bonilla MD [address] [place], [place] 528031 PCP - General Family Medicine 10/10/17 Junaid Arriaga MD [address] [address] Physician Cardiology 05/04/21 Santos Calvin MD [address] [place] [address] Physician Urology 09/13/21 Flaquito Mariee MD [address]61 [place] [address] Salon Sales Consultant Pulmonary Disease 10/25/21 Christopher Bonilla MD [address] [place], [place] 169231 Home Care Provider Family Medicine 02/03/22 Mera Langford MD 1 [place], [place] [phone] Referring 02/04/22 Jolene Osuna RN In File Operator 12/20/22 Certified Green Building Engineer Relationship Specialty Start Date End Date Christopher Bonilla MD [address] [place] [address] PCP - General Family Medicine 10/10/17 Junaid Arriaga MD [address] [place] [address] Physician Cardiology 05/04/21 Santos Calvin MD [address] [place] [address] Physician Urology 09/13/21 Flaquito Mariee MD [address] [place] [address] Salon Sales Consultant Pulmonary Disease 10/25/21 Christopher Bonilla MD [address] [place] [address] Home Care Provider Family Medicine 02/03/22 Mera Langford MD 1 [place] [address] Referring 02/04/22 Jolene Osuna, turbine technicianIn File Operator 12/20/22 Certified Green Building Engineer Relationship Specialty Start Date End Date Christopher Bonilla MD 174 [place] [address] PCP - General Family Medicine 10/10/17 Junaid Arriaga MD [address] [place] [address] Physician Cardiology 05/04/21 Santos Calvin MD [address] [address] Physician Urology 09/13/21 Flaquito Mariee MD [address] [place] [address] Salon Sales Consultant Pulmonary Disease 10/25/21 Christopher Bonilla MD 174 [place] [address] Home Care Provider Family Medicine 02/03/22 Mera Langford MD 1 [place] [address] Referring 02/04/22 Jolene Osuna, turbine technicianIn File Operator 12/20/22 Certified Green Building Engineer Relationship Specialty Start Date End Date Christopher Bonilla MD 174 [place], [place] 463391 PCP - General Family Medicine 10/10/17 Junaid Arriaga MD 176 [facility] [address] [address] Physician Cardiology 05/04/21 Santos Calvin MD [address] [address] Physician Urology 09/13/21 Flaquito Mariee MD [address] [place] [address] Salon Sales Consultant Pulmonary Disease 10/25/21 Christopher Bonilla MD 174 [place] [address] Home Care Provider Family Medicine 02/03/22 Mera Langford MD 1 [place], [place] [phone] Referring 02/04/22 Jolene Osuna, turbine technicianIn File Operator 12/20/22 Certified Green Building Engineer Relationship Specialty Start Date End Date Christopher Bonilla MD [address] [place], [place] 963141 PCP - General Family Medicine 10/10/17 Junaid Arriaga MD [address] [address] Physician Cardiology 05/04/21 Santos Calvin MD [address] [place] [address] Physician Urology 09/13/21 Flaquito Mariee MD [address]61 [place], [place] 046831 Salon Sales Consultant Pulmonary Disease 10/25/21 Christopher Bonilla MD [address] [place] [address] Home Care Provider Family Medicine 02/03/22 Mera Langford MD 1 [place], [place] [phone] Referring 02/04/22 Jolene Osuna, turbine technicianIn File Operator 12/20/22 Certified Green Building Engineer Relationship Specialty Start Date End Date Christopher Bonilla MD [address] [place], [place] 766211 PCP - General Family Medicine 10/10/17 Junaid Arriaga MD [address] [place] [address] Physician Cardiology 05/04/21 Santos Calvin MD [address] [place] [address] Physician Urology 09/13/21 Flaquito Mariee MD [address] [place] [address] Salon Sales Consultant Pulmonary Disease 10/25/21 Christopher Bonilla MD [address] [place] [address] Home Care Provider Family Medicine 02/03/22 Mera Langford MD 1 [place] [address] Referring 02/04/22 Jolene Osuna, turbine technicianIn File Operator 12/20/22 Certified Green Building Engineer Relationship Specialty Start Date End Date Christopher Bonilla MD [address] [place] [address] PCP - General Family Medicine 10/10/17 Junaid Arriaga MD [address] [place] [address] Physician Cardiology 05/04/21 Santos Calvin MD [address] [address] Physician Urology 09/13/21 Flaquito Mariee MD 1761 [facility] [address] Salon Sales Consultant Pulmonary Disease 10/25/21 Christopher Bonilla MD [address] [place] [address] Home Care Provider Family Medicine 02/03/22 Mera Langford MD 1 [place], [place] [phone] Referring 02/04/22 Jolene Osuna, turbine technicianIn File Operator 12/20/22 Certified Green Building Engineer Relationship Specialty Start Date End Date Christopher Bonilla MD 174 [place], [place] 357501 PCP - General Family Medicine 10/10/17 Junaid Arriaga MD 176 [facility] [address] [address] Physician Cardiology 05/04/21 Santos Calvin MD [address] [place] [address] Physician Urology 09/13/21 Flaquito Mariee MD 176 [facility] [address] Salon Sales Consultant Pulmonary Disease 10/25/21 Christopher Bonilla MD [address] [place] [address] Home Care Provider Family Medicine 02/03/22 Mera Langford MD 1 [place], [place] [phone] Referring 02/04/22 Jolene Osuna, turbine technicianIn File Operator 12/20/22 Certified Green Building Engineer Relationship Specialty Start Date End Date Christopher Bonilla MD 174 [place], [place] 445231 PCP - General Family Medicine 10/10/17 Junaid Arriaga MD 176 [facility] [address] [place] [address] Physician Cardiology 05/04/21 Santos Calvin MD [address] [place] [address] Physician Urology 09/13/21 Flaquito Mariee MD 176 [place] [address] Salon Sales Consultant Pulmonary Disease 10/25/21 Christopher Bonilla MD 174 [place] [address] Home Care Provider Family Medicine 02/03/22 Mera Langford MD 1 [place] [address] Referring 02/04/22 Jolene Osuna RN In File Operator 12/20/22 Certified Green Building Engineer Relationship Specialty Start Date End Date Christopher Bonilla MD 174 [place], [place] 458061 PCP - General Family Medicine 10/10/17 Junaid Arriaga MD [address] 298741 Physician Cardiology 05/04/21 Santos Calvin MD [address] 274161 Physician Urology 09/13/21 Flaquito Mariee MD [address] [place], [place] 687361 Salon Sales Consultant Pulmonary Disease 10/25/21 Christopher Bonilla MD 174 [place], [place] 10232691 Home Care Provider Family Medicine 02/03/22 Mera Langford MD 1 [place], [place] [phone] Referring 02/04/22 Jolene Osuna, turbine technicianIn File Operator 12/20/22 Certified Green Building Engineer Relationship Specialty Start Date End Date Christopher Bonilla MD [address] [place], [place] 152661 PCP - General Family Medicine 10/10/17 Junaid Arriaga MD 176 [facility] [address] [address] Physician Cardiology 05/04/21 Santos Calvin MD [address] [address] Physician Urology 09/13/21 Flaquito Mariee MD [address] [place], [place] 937461 Salon Sales Consultant Pulmonary Disease 10/25/21 Christopher Bonilla MD [address] [place], [place] 512481 Home Care Provider Family Medicine 02/03/22 Mera Langford MD 1 [place], [place] [phone] Referring 02/04/22 Jolene Osuna turbine technicianIn File Operator 12/20/22 Certified Green Building Engineer Relationship Specialty Start Date End Date Christopher Bonilla MD [address] [place], [place] 563231 PCP - General Family Medicine 10/10/17 Junaid Arriaga MD [address] [address] Physician Cardiology 05/04/21 Santos Calvin MD [address] 997031 Physician Urology 09/13/21 Flaquito Mariee MD [address]61 [place] [address] Salon Sales Consultant Pulmonary Disease 10/25/21 Christopher Bonilla MD [address] [place] [address] Home Care Provider Family Medicine 02/03/22 Mera Langford MD 1 [place], [place] [phone] Referring 02/04/22 Jolene Osuna RN In File Operator 12/20/22 Certified Green Building Engineer Relationship Specialty Start Date End Date Christopher Bonilla MD 174 [place] [address] PCP - General Family Medicine 10/10/17 Junaid Arriaga MD [address] [place] [address] Physician Cardiology 05/04/21 Santos Calvin MD [address] [place] [address] Physician Urology 09/13/21 Flaquito Mariee MD 176 [facility] [address] Salon Sales Consultant Pulmonary Disease 10/25/21 Christopher Bonilla MD [address] [place] [address] Home Care Provider Family Medicine 02/03/22 Mera Langford MD 1 [place] [address] Referring 02/04/22 Jolene Osuna, turbine technicianIn File Operator 12/20/22 Certified Green Building Engineer Relationship Specialty Start Date End Date Christopher Bonilla MD 174 [place] [address] PCP - General Family Medicine 10/10/17 Junaid Arriaga MD [address] [place] [address] Physician Cardiology 05/04/21 Santos Calvin MD [address] [place] [address] Physician Urology 09/13/21 Flaquito Mairee MD [address] [place] [address] Salon Sales Consultant Pulmonary Disease 10/25/21 Christopher Bonilla MD 174 [place] [address] Home Care Provider Family Medicine 02/03/22 Mera Langford MD 1 [place] [address] Referring 02/04/22 Jolene Osuna, turbine technicianIn File Operator 12/20/22 Certified Green Building Engineer Relationship Specialty Start Date End Date Christopher Bonilla MD 174 [place] [address] PCP - General Family Medicine 10/10/17 Junaid Arriaga MD 176 [facility] [address] [address] Physician Cardiology 05/04/21 Santos Calvin MD [address] [place] [address] Physician Urology 09/13/21 Flaquito Mariee MD [address] [place], [place] 056971 Salon Sales Consultant Pulmonary Disease 10/25/21 Christopher Bonilla MD [address] [place] [address] Home Care Provider Family Medicine 02/03/22 Mera Langford MD 1 [place], [place] [phone] Referring 02/04/22 Jolene Osuna RN In File Operator 12/20/22 Certified Green Building Engineer Relationship Specialty Start Date End Date Christopher Bonilla MD [address] [place], [place] [id number] PCP - General Family Medicine 10/10/17 Junaid Arriaga MD [address] [phone] Physician Cardiology 05/04/21 Santos Calvin MD [address] [place] [address]1471 Physician Urology 09/13/21 Flaquito Mariee MD 176 [place], [place] 560541 Salon Sales Consultant Pulmonary Disease 10/25/21 Christopher Bonilla MD 174 [place] [address] Home Care Provider Family Medicine 02/03/22 Mera Langford MD 1 [place], [place] [phone] Referring 02/04/22 Concha Rocha, turbine technicianIn File Operator 07/08/22 3 Certified Green Building Engineer Relationship Specialty Start Date End Date Christopher Bonilla MD [address] [place], [place] 02307691 PCP - General Family Medicine 10/10/17 Junaid Arriaga MD [address] [place] [address] Physician Cardiology 05/04/21 Santos Calvin MD [address] [address] Physician Urology 09/13/21 Flaquito Mariee MD 176 [facility] [address] Salon Sales Consultant Pulmonary Disease 10/25/21 Christopher Bonilla MD 174 [place] [address] Home Care Provider Family Medicine 02/03/22 Mera Langfodr MD 1 [place] [address] Referring 02/04/22 Concha Rocha, turbine technicianIn File Operator 07/08/22 3 Certified Green Building Engineer Relationship Specialty Start Date End Date Christopher Bonilla MD 174 [place] [address] PCP - General Family Medicine 10/10/17 Elisabeth Shannon, RN [address] [place] [id number] In File Operator 02/11/2107/07 Junaid Arriaga MD [address] [place] [address] Physician Cardiology 05/04/21 Santos Calvin MD [address] [address] Physician Urology 09/13/21 Flaquito Mariee MD 1761 [facility] [address] Salon Sales Consultant Pulmonary Disease 10/25/21 Christopher Bonilla MD [address] [place] [address] Home Care Provider Family Medicine 02/03/22 Mera Langford MD 1 [place] [address] Referring 02/04/22 Certified Green Building Engineer Relationship Specialty Start Date End Date Christopher Bonilla MD [address] [place] [address] PCP - General Family Medicine 10/10/17 Elisabeth Shannon, RN [address] [place] [address] In File Operator 02/11/2107/07 Junaid Arriaga MD [address] [address] Physician Cardiology 05/04/21 Santos Calvin MD [address] 1088[address] Physician Urology 09/13/21 Flaquito Mariee MD 1761 [facility] [address] Salon Sales Consultant Pulmonary Disease 10/25/21 Christopher Bonilla MD [address] [place], [place] 581931 Home Care Provider Family Medicine 02/03/22 Mera Langford MD 1 [place] [address] Referring 02/04/22 Erik Hassan, PEYTON [address] [place], [place] [phone] Document Image Technician Post Acute Care 02/08/22 03/08/22 Certified Green Building Engineer Relationship Specialty Start Date End Date Christopher Bonilla MD 174 [place], [place] 297081 PCP - General Family Medicine 10/10/17 Elisabeth Shannon RN [address] [place], [place] 7615431 In File Operator 02/11/2107/07 Junaid Arriaga MD [address] [address] Physician Cardiology 05/04/21 Certified Green Building Engineer Relationship Specialty Start Date End Date Christopher Bonilla MD 174 [place], [place] 51206691 PCP - General Family Medicine 10/10/17 Elisabeth Shannon RN [address] [place] [address] In File Operator 02/11/2107/07 Junaid Arriaga MD [address] [address] Physician Cardiology 05/04/21 Santos Calvin MD [address] [place] [address] Physician Urology 09/13/21 Certified Green Building Engineer Relationship Specialty Start Date End Date Christopher Bonilla MD [address] [place] [address] PCP - General Family Medicine 10/10/17 Elisabeth Shannon, RN 6000 [facility], [place] 6983431 In File Operator 02/11/2107/07 Junaid Arriaga MD [address] [address] Physician Cardiology 05/04/21 Certified Green Building Engineer Relationship Specialty Start Date End Date Christopher Bonilla MD [address] [place] [address] PCP - General Family Medicine 10/10/17 Elisabeth Shannon, [place] [address] [place], [place] 8145631 In File Operator 02/11/2107/07 Junaid Arriaga MD [address] [address] Physician Cardiology 05/04/21 Certified Green Building Engineer Relationship Specialty Start Date End Date Christopher Bonilla MD [address] [place] [address] PCP - General Family Medicine 10/10/17 Elisabeth Shannon, RN [address] [place] [address] In File Operator 02/11/2107/07 Junaid Arriaga MD [address] [address] Physician Cardiology 05/04/21 Certified Green Building Engineer Relationship Specialty Start Date End Date Christopher Bonilla MD [address] [place] [address] PCP - General Family Medicine 10/10/17 Certified Green Building Engineer Relationship Specialty Start Date End Date Christopher Bonilla MD [address] [place] [address] PCP - General Family Medicine 10/10/17 Junaid Arriaga MD 1761 [facility] [address] [place] [address] Physician Cardiology 05/04/21 Santos Calvin MD [address] [place] [address] 210 [place] [address] Physician Urology 09/13/21 Flaquito Mariee MD 1761 [facility] [place] [address] Salon Sales Consultant Pulmonary Disease 10/25/21 Christopher Bonilla MD [address] [place] [address] Home Care Provider Family Medicine 02/03/22 Mera Langford MD 1 [place], [place] [phone] Referring 02/04/22 Jolene Osuna turbine technicianIn File Operator 12/20/22 Dalila Jensen APRN.EXTERNAL GRINDER TOOL [address] [place] [address] Director Of Public Health Family [facility] 05/13/24 Mimi Encinas APRN.EXTERNAL GRINDER TOOL [address] [place], [place] 678151 Director Of Public Health [facility] 05/13/24 Certified Green Building Engineer Relationship Specialty Start Date End Date Christopher Bonilla MD [address] [place], [place] 101621 PCP - General Family Medicine 10/10/17 Junaid Arriaga MD 1761 [facility] [address] [place], [place] 586631 Physician Cardiology 05/04/21 Santos Calvin MD [address] [place] [address] Physician Urology 09/13/21 Flaquito Mariee MD [address]61 [place] [address] Salon Sales Consultant Pulmonary Disease 10/25/21 Christopher Bonilla MD [address] [place] [address] Home Care Provider Family Medicine 02/03/22 Mera Langford MD 1 [place] [address] Referring 02/04/22 Jolene Osuna, turbine technicianIn File Operator 12/20/22 Dalila Jensen APRN.EXTERNAL GRINDER TOOL [address] [place] [address] [facility] 05/13/24 Mimi Encinas APRN.EXTERNAL GRINDER TOOL [address] [place] [address] Director Of Public Health Family Medicine 05/13/24 Certified Green Building Engineer Relationship Specialty Start Date End Date Christopher Bonilla MD [address] [place] [address] PCP - General Family Medicine 10/10/17 Junaid Arriaga MD 17[address] [facility] [address] [place] [address] Physician Cardiology 05/04/21 Santos Calvin MD [address] [place] [address] Physician Urology 09/13/21 Flaquito Mariee MD [address] [facility] [place] [address] Salon Sales Consultant Pulmonary Disease 10/25/21 Christopher Bonilla MD [address] [place] [address] Home Care Provider Family Medicine 02/03/22 Mera Langford MD 1 [place] [address] Referring 02/04/22 Jolene Osuna, turbine technicianIn File Operator 12/20/22 Dalila Jensen APRN.EXTERNAL GRINDER TOOL [address] [facility] [place] [address] Director Of Public Health Family [facility] 05/13/24 Mimi Encinas CHIPPER MACHINE OPERATOR.EXTERNAL GRINDER TOOL [address] [place] [address] Director Of Public Health Family Medicine 05/13/24 Certified Green Building Engineer Relationship Specialty Start Date End Date Christopher Bonilla MD [address] [place] [address] PCP - General Family Medicine 10/10/17 Junaid Arriaga MD 176 [facility] [address] [place] [address] Physician Cardiology 05/04/21 Santos Calvin MD [address] [place] [address] Physician Urology 09/13/21 Flaquito Mariee MD 176 [place] [address] Salon Sales Consultant Pulmonary Disease 10/25/21 Christopher Bonilla MD 174 [place] [address] Home Care Provider Family Medicine 02/03/22 Mera Langford MD 1 [place] [address] Referring 02/04/22 Dalila Jensen APRN.EXTERNAL GRINDER TOOL [address] [place], [place] 500281 Director Of Public Health Family Medicine 05/13/24 Certified Green Building Engineer Relationship Specialty Start Date End Date Christopher Bonilla MD [address] [place], [place] 000871 PCP - General Family Medicine 10/10/17 Junaid Arriaga MD 1761 [facility] [address] [place] [address] Physician Cardiology 05/04/21 Santos Calvin MD 546 [facility] [address] [place] [address] Physician Urology 09/13/21 Flaquito Mariee MD 1761 [facility] [place] [address] Salon Sales Consultant Pulmonary Disease 10/25/21 Christopher Bonilla MD [address] [place] [address] Home Care Provider Family Medicine 02/03/22 Mera Langford MD 1 [place] [address] Referring 02/04/22 Dalila Jensen APRN.EXTERNAL GRINDER TOOL [address] [place] [address] Director Of Public Health Family Medicine 05/13/24 Mimi Encinas CHIPPER MACHINE OPERATOR.EXTERNAL GRINDER TOOL [address] [place] [address] Director Of Public Health Family Medicine 05/13/24 Certified Green Building Engineer Relationship Specialty Start Date End Date Christopher Bonilla MD [address] [place], [place] 976051 PCP - General Family Medicine 10/10/17 Junaid Arriaga MD 1761 [facility] [address] [place], [place] [address] Physician Cardiology 05/04/21 Santos Calvin MD [address] [place] [address], [place] [address] Physician Urology 09/13/21 Flaquito Mariee MD [address] [facility] [address] Salon Sales Consultant Pulmonary Disease 10/25/21 Christopher Bonilla MD [address] [place] [address] Home Care Provider Family Medicine 02/03/22 Mera Langford MD 1 [place] [address] Referring 02/04/22 Dalila Jensen APRN.EXTERNAL GRINDER TOOL [address] [place] [address] Director Of Public Health Family Medicine 05/13/24 Mimi Encinas CHIPPER MACHINE OPERATOR.EXTERNAL GRINDER TOOL [address] [place] [address] Director Of Public Health Family Medicine 05/13/24 Certified Green Building Engineer Relationship Specialty Start Date End Date Christopher Bonilla MD [address] [place] [address] PCP - General Family Medicine 10/10/17 Junaid Arriaga MD [address] [address] [address] [place] [address] Physician Cardiology 05/04/21 Santos Calvin MD [address] [address] Physician Urology 09/13/21 Flaquito Mariee MD 176 [facility] [address] Salon Sales Consultant Pulmonary Disease 10/25/21 Christopher Bonilla MD [address] [place] [address] Home Care Provider Family Medicine 02/03/22 Mera Langford MD 1 [place], [place] [id number] Referring 02/04/22 Dalila Jensen APRN.EXTERNAL GRINDER TOOL [address] [place] [address] Director Of Public Health Family Medicine 05/13/24 Mimi Encinas APRN.EXTERNAL GRINDER TOOL [address] [place] [address] Director Of Public Health Family Medicine 05/13/24 Certified Green Building Engineer Relationship Specialty Start Date End Date Christopher Bonilla MD [address] [place] [address] PCP - General Family Medicine 10/10/17 Junaid Arriaga MD [address] [facility] [address] [place] [address] Physician Cardiology 05/04/21 Santos Calvin MD [address] [address] Physician Urology 09/13/21 Flaquito Mariee MD [address] [place] [address] Salon Sales Consultant Pulmonary Disease 10/25/21 Christopher Bonilla MD [address] [place] [address] Home Care Provider Family Medicine 02/03/22 Mera Langford MD 1 [place] [address] Referring 02/04/22 Dalila Jensen APRN.EXTERNAL GRINDER TOOL 1740 [facility] [place] [address] Director Of Public Health Family Medicine 05/13/24 Mimi Encinas CHIPPER MACHINE OPERATOR.EXTERNAL GRINDER TOOL [address] [place] [address] Director Of Public Health Family Medicine 05/13/24 Certified Green Building Engineer Relationship Specialty Start Date End Date Christopher Bonilla MD [address] [place] [address] PCP - General Family Medicine 10/10/17 Juniad Arriaga MD [address] [facility] [address] [place] [address] Physician Cardiology 05/04/21 Santos Calvin MD [address] [place] [address] [place] [address] Physician Urology 09/13/21 Flaquito Mariee MD [address] [place] [address] Salon Sales Consultant Pulmonary Disease 10/25/21 Christopher Bonilla MD [address] [place] [address] Home Care Provider Family Medicine 02/03/22 Mera Langford MD 1 [place] [address] Referring 02/04/22 Dalila Jensen APRN.EXTERNAL GRINDER TOOL [address] [place] [address] Director Of Public Health Family Medicine 05/13/24 Mimi Encinas APRN.EXTERNAL GRINDER TOOL [address] [place] [address] Director Of Public Health Family [facility] 05/13/24 Certified Green Building Engineer Relationship Specialty Start Date End Date Christopher Bonilla MD [address] [place], [place] 176441 PCP - General Family Medicine 10/10/17 Junaid Arriaga MD [address] [facility] [address] [place] [address] Physician Cardiology 05/04/21 Santos Calvin MD [address] [place] [address] [address] [place] [address] Physician Urology 09/13/21 Flaquito Mariee MD [address] [place] [address] Salon Sales Consultant Pulmonary Disease 10/25/21 Christopher Bonilla MD [address] [place] [address] Home Care Provider Family Medicine 02/03/22 Mera Langford MD 1 [place] [address] Referring 02/04/22 Dalila Jensen APRN.EXTERNAL GRINDER TOOL [address] [place] [address] Director Of Public Health Family Medicine 05/13/24 Mimi Encinas APRN.EXTERNAL GRINDER TOOL [address] [place] [address] Director Of Public Health Family Medicine 05/13/24 Certified Green Building Engineer Relationship Specialty Start Date End Date Christopher Bonilla MD [address] [place] [address] PCP - General Family Medicine 10/10/17 Junaid Arriaga MD 176 [facility] [address] [place] [address] Physician Cardiology 05/04/21 Santos Calvin MD [address] [place] [address] Physician Urology 09/13/21 Flaquito Mariee MD 176 [facility] [address] Salon Sales Consultant Pulmonary Disease 10/25/21 Christopher Bonilla MD [address] [place], [place] 399281 Home Care Provider Family Medicine 02/03/22 Mera Langford MD 1 [place], [place] [id number] Referring 02/04/22 Dalila Jensen APRN.EXTERNAL GRINDER TOOL [address] [place], [place] 508551 Director Of Public Health Family Medicine 05/13/24 Mimi Encinas APRN.EXTERNAL GRINDER TOOL [address] [place], [place] [id number] Director Of Public Health Family Medicine 05/13/24 Certified Green Building Engineer Relationship Specialty Start Date End Date Christopher Bonilla MD [address] [place], [place] [id number] PCP - General Family Medicine 10/10/17 Junaid Arriaga MD [address] [facility] [address] [place] [address] Physician Cardiology 05/04/21 Santos Calvin MD [address] [place] [address] 210 [place], [place] [address]21 Physician Urology 09/13/21 Flaquito Mariee MD 1761 [facility] [address] Salon Sales Consultant Pulmonary Disease 10/25/21 Christopher Bonilla MD [address] [place], [place] 332531 Home Care Provider Family Medicine 02/03/22 Mera Langford MD 1 [place] [address] Referring 02/04/22 Dalila Jensen APRN.EXTERNAL GRINDER TOOL [address] [place], [place] [address]051 [facility] 05/13/24 Mimi Encinas APRN.EXTERNAL GRINDER TOOL [address] [place], [place] 221681 [facility] 05/13[facility]24 Team Status: Active Member Role/Relationship Status Dates Dr. Christopher Bonilla MD Primary Care Provider Active Team Status: Inactive Member Role/Relationship Status Dates Dr. Christopher Bonilla MD Primary Care Provider Active Start: December 05, 2024 End: December 05, 2024 Dr. Christopher Bonilla MD Referring Provider Active Start: December 05, 2024 End: December 05, 2024 Hima Tijerina CLICKING MACHINE OPERATOR, CLICKING MACHINE OPERATOR-C Attending Provider Active Start: December 05, 2024 End: December 05, 2024 Certified Green Building Engineer Relationship Specialty Start Date End Date Christopher Bonilla MD [address] [place], [place] [address]04751 PCP - General Family Medicine 10/10/17 Junaid Arriaga MD [address] [place] [address] Physician Cardiology 05/04/21 Santos Calvin MD 546 [facility] 210 [place], [place] [address] Physician Urology 09/13/21 Flaquito Mariee MD [address] [place] [address] Salon Sales Consultant Pulmonary Disease 10/25/21 Christopher Bonilla MD [address] [place] [address] Home Care Provider Family Medicine 02/03/22 Mera Langford MD 1 [place] [address] Referring 02/04/22 Dalila Jensen APRN.EXTERNAL GRINDER TOOL [address] [place] [address] Director Of Public Health Family [facility] 05/13/24 Mimi Encinas APRN.EXTERNAL GRINDER TOOL [address] [place] [address] Director Of Public Health Family [facility] 05/13/24 Team Status: Active Member Role/Relationship Status Dates Dr. Christopher Bonilla MD Primary Care Provider Active Start: December 20, 2024 Hima Tijerina CLICKING MACHINE OPERATOR, CLICKING MACHINE OPERATOR-C Attending Provider Active Start: December 20, 2024 Hima Tijerina CLICKING MACHINE OPERATOR, CLICKING MACHINE OPERATOR-C Referring Provider Active Start: December 20, 2024 Team Status: Inactive Member Role/Relationship Status Dates Dr. Christopher Bonilla MD Primary Care Provider Active Start: December 20, 2024 End: December 20, 2024 MICAH Nunez Attending Provider Active Start: December 20, 2024 End: December 20, 2024 MICAH Nunez Referring Provider Active Start: December 20, 2024 End: December 20, 2024 Hima Tijerina CLICKING MACHINE OPERATOR, CLICKING MACHINE OPERATOR-C Other Provider Active Sta rt: December 20, 2024 End: December 20, 2024 Team Status: Inactive Member Role/Relationship Status Dates Dr. Christopher Bonilla MD Primary Care Provider Active Start: December 20, 2024 End: December 20, 2024 Hima Tijerina CLICKING MACHINE OPERATOR, CLICKING MACHINE OPERATOR-C Attending Provider Active Start: December 20, 2024 End: December 20, 2024 Hima Tijerina CLICKING MACHINE OPERATOR, CLICKING MACHINE OPERATOR-C Referring Provider Active Start: December 20, 2024 End: December 20, 2024 Team Status: Inactive Member Role/Relationship Status Dates Dr. Christopher Bonilla MD Primary Care Provider Active Start: January 02, 2025 End: January 02, 2025 Dr. Pablo Watson , DO Referring Provider Activ e Start: January 02, 2025 End: January 02, 2025 Dr. Pablo Watson , DO Emergency Provider Activ e Start: January 02, 2025 End: January 02, 2025 Certified Green Building Engineer Relationship Specialty Start Date End Date Christopher Bonilla MD [address] [place], [place] 444201 PCP - General Family Medicine 10/10/17 Junaid Arriaga MD 1761 [facility] [address] [place] [address] Physician Cardiology 05/04/21 Santos Calvin MD [address] [place] [address] Physician Urology 09/13/21 Flaquito Mariee MD [address] [place] [address] Salon Sales Consultant Pulmonary Disease 10/25/21 Christopher Bonilla MD [address] [place] [address] Home Care Provider Family Medicine 02/03/22 Mera Langford MD 1 [place] [address] Referring 02/04/22 Dalila Jensen APRN.EXTERNAL GRINDER TOOL [address] [place] [address] Director Of Public Health Family Medicine 05/13/24 Mimi Encinas APRN.EXTERNAL GRINDER TOOL [address] [place] [address] Director Of Public Health Family Medicine 05/13/24 Certified Green Building Engineer Relationship Specialty Start Date End Date Christopher Bonilla MD [address] [facility], [place] [address] PCP - General Family Medicine 10/10/17 Junaid Arriaga MD 1761 [facility] [address] [place] [address] Physician Cardiology 05/04/21 Santos Calvin MD 546 [facility] [address] [place] [address] Physician Urology 09/13/21 Flaquito Mariee MD [address] [facility] [place] [address] Salon Sales Consultant Pulmonary Disease 10/25/21 Christopher Bonilla MD [address] [place] [address] Home Care Provider Family Medicine 02/03/22 Mera Langford MD 1 [place] [address] Referring 02/04/22 Dalila Jensen APRN.EXTERNAL GRINDER TOOL [address] [place] [address] Director Of Public Health Family [facility] 05/13/24 Mimi Encinas CHIPPER MACHINE OPERATOR.EXTERNAL GRINDER TOOL [address] [place], [place] [address]22361 Director Of Public Health Family Medicine 05/13/24 Team Status: Inactive Member Role/Relationship Status Dates Dr. Christopher Bonilla MD Primary Care Provider Active Start: January 02, 2025 End: January 02, 2025 Dr. Pablo Watson DO Attending Provider Activ e Start: January 02, 2025 End: January 02, 2025 Dr. Pablo Watson DO Referring Provider Activ e Start: January 02, 2025 End: January 02, 2025 Dr. Pablo Watson DO Emergency Provider Activ e Start: January 02, 2025 End: January 02, 2025 Team Status: Active Member Role/Relationship Status Dates Dr. Christopher Bonilla MD Primary Care Provider Active Start: January 22, 2025 Dr. Juan Vines MD Emergency Provider Active S tart: January 22, 2025 Dr. Philip Kamara DO Admit Provider Active Start: January 22, 2025 Dr. Philip Kamara DO Attending Provider Active Start: January 22, 2025 Team Status: Inactive Member Role/Relationship Status Dates Dr. Christopher Bonilla MD Primary Care Provider Active Start: January 22, 2025 End: January 25, 2025 Dr. Juan Vines MD Emergency Provider Active S tart: January 22, 2025 End: January 25, 2025 Dr. Philip Kamara DO Admit Provider Active Start: January 22, 2025 End: January 25, 2025 Dr. Philip Kamara DO Other Provider Active Start: January 22, 2025 End: January 25, 2025 Dr. Christine Borges MD Attending Provider Active Start: January 22, 2025 End: January 25, 2025 Team Status: Active Member Role/Relationship Status Dates Dr. Christopher Bonilla MD Primary Care Provider Active Start: January 23, 2025 Dr. Juan Vines MD Emergency Provider Active S tart: January 23, 2025 Dr. Philip Kamara DO Admit Provider Active Start: January 23, 2025 Dr. Philip Kamara DO Other Provider Active Start: January 23, 2025 Dr. Christine Borges MD Attending Provider Active Start: January 23, 2025 Dr. Christine Borges MD Other Provider Active St art: January 23, 2025 Team Status: Active Member Role/Relationship Status Dates Dr. Christopher Bonilla MD Primary Care Provider Active Start: January 24, 2025 Dr. Juan Vines MD Emergency Provider Active S tart: January 24, 2025 Dr. Philip Kamara DO Admit Provider Active Start: January 24, 2025 Dr. Philip Kamara DO Other Provider Active Start: January 24, 2025 Dr. Christine Borges MD Attending Provider Active Start: January 24, 2025 Dr. Christine Borges MD Other Provider Active St art: January 24, 2025 Certified Green Building Engineer Relationship Specialty Start Date End Date Christopher Bonilla MD [address] [place], [place] [address]578[address] PCP - General Family Medicine 10/10/17 Junaid Arriaga MD 1761 [facility] [address] [place] [address] Physician Cardiology 05/04/21 Santos Calvin MD [address] [address] Physician Urology 09/13/21 Flaquito Mariee MD [address] [place] [address] Salon Sales Consultant Pulmonary Disease 10/25/21 Christopher Bonilla MD [address] [place], [place] 939631 Home Care Provider Family Medicine 02/03/22 Mera Langford MD 1 [place] [address] Referring 02/04/22 Dalila Jensen APRN.EXTERNAL GRINDER TOOL [address] [place] [address] Director Of Public Health Family Medicine 05/13/24 Mimi Encinas APRN.EXTERNAL GRINDER TOOL [address] [place] [address] Director Of Public Health Family [facility] 05/13/24 Certified Green Building Engineer Relationship Specialty Start Date End Date Christopher Bonilla MD [address] [place] [address] PCP - General Family Medicine 10/10/17 Junaid Arriaga MD [address] [address] Physician Cardiology 05/04/21 Santos Calvin MD [address] [place] [address] Physician Urology 09/13/21 Flaquito Mariee MD [address] [place] [address] Salon Sales Consultant Pulmonary Disease 10/25/21 Christopher Bonilla MD [address] [place] [address] Home Care Provider Family Medicine 02/03/22 Mera Langford MD 1 [place] [address] Referring 02/04/22 Dalila Jensen APRN.EXTERNAL GRINDER TOOL [address] [place] [address] Director Of Public Health Family [facility] 05/13/24 Mimi Encinas APRN.EXTERNAL GRINDER TOOL [address] [place] [address] Director Of Public Health Family Medicine 05/13/24 Certified Green Building Engineer Relationship Specialty Start Date End Date Christopher Bonilla MD [address] [facility], [place] [address] PCP - General Family Medicine 10/10/17 Junaid Arriaga MD 1761 [facility] [address] [place] [address] Physician Cardiology 05/04/21 Santos Calvin MD 546 [facility] [address] [place] [address] Physician Urology 09/13/21 Flaquito Mariee MD [address] [facility] [place] [address] Salon Sales Consultant Pulmonary Disease 10/25/21 Christopher Bonilla MD [address] [place] [address] Home Care Provider Family Medicine 02/03/22 Mera Langford MD 1 [place] [address] Referring 02/04/22 Dalila Jensen APRN.EXTERNAL GRINDER TOOL [address] [place] [address] Director Of Public Health Family [facility] 05/13/24 Mimi Encinas CHIPPER MACHINE OPERATOR.EXTERNAL GRINDER TOOL [address] [place], [place] [address] Director Of Public Health Family Medicine 05/13/24 Team Status: Active Member Role/Relationship Status Dates Dr. Christopher Bonilla MD Primary care physician Active Team Status: Inactive Member Role/Relationship Status Dates Dr. Christopher Bonilla MD Primary care physician Active Start: December 05, 2024 End: December 05, 2024 Dr. Christopher Bonilla MD Referring Provider Active Start: December 05, 2024 End: December 05, 2024 Hima Tijerina CLICKING MACHINE OPERATOR, CLICKING MACHINE OPERATOR-C Attending physician Active Start: December 05, 2024 End: December 05, 2024 Team Status: Inactive Member Role/Relationship Status Dates Dr. Christopher Bonilla MD Primary care physician Active Start: December 20, 2024 End: December 20, 2024 Hima Tijerina CLICKING MACHINE OPERATOR, CLICKING MACHINE OPERATOR-C Attending physician Active Start: December 20, 2024 End: December 20, 2024 Hima Tijerina CLICKING MACHINE OPERATOR, CLICKING MACHINE OPERATOR-C Referring Provider Active Start: December 20, 2024 End: December 20, 2024 Team Status: Inactive Member Role/Relationship Status Dates Dr. Christopher Bonilla MD Primary care physician Active Start: December 20, 2024 End: December 20, 2024 MICAH Nunez Attending physician Active Start: December 20, 2024 End: December 20, 2024 MICAH Nunez Referring Provider Active Start: December 20, 2024 End: December 20, 2024 Hima Tijerina CLICKING MACHINE OPERATOR, CLICKING MACHINE OPERATOR-C Nurse Practitioner Active Start: December 20, 2024 End: December 20, 2024 Team Status: Inactive Member Role/Relationship Status Dates Dr. Christopher Bonilla MD Primary care physician Active Start: January 02, 2025 End: January 02, 2025 Dr. Pablo Watson DO Attending physician Active Start: January 02 End: January 02, 2025 Dr. Pablo Watson DO Referring Provider Active Start: January 02 End: January 02, 2025 Dr. Pablo Watson DO Emergency Department Physician Active Start: January 02, 2025 End: January 02, 2025 Team Status: Inactive Member Role/Relationship Status Dates Dr. Christopher Bonilla MD Primary care physician Active Start: January 22, 2025 End: January 25, 2025 Dr. Juan Vines MD Emergency Departmen t Physician Active Start: January 22, 2025 End: January 25, 2025 Dr. Philip Kamara DO Admitting physician Active Start: January 22, 2025 End: January 25, 2025 Dr. Philip Kamara DO Nurse Practitioner Active Start: January 22, 2025 End: January 25, 2025 Dr. Christine Borges MD Attending physician Active Start: January 22, 2025 End: January 25, 2025 Team Status: Active Member Role/Relationship Status Dates Dr. Christopher Bonilla MD Primary care physician Active Start: January 23, 2025 Dr. Juan Vines MD Emergency Departmen t Physician Active Start: January 23, 2025 Dr. Philip Kamara DO Admitting physician Active Start: January 23, 2025 Dr. Philip Kamara DO Nurse Practitioner Active Start: January 23, 2025 Dr. Christine Borges MD Attending physician Active Start: January 23, 2025 Dr. Christine Borges MD Nurse Practitioner Active Start: January 23, 2025 Team Status: Active Member Role/Relationship Status Dates Dr. Christopher Bonilla MD Primary care physician Active Start: January 24, 2025 Dr. Juan Vines MD Emergency Departmen t Physician Active Start: January 24, 2025 Dr. Philip Kamara DO Admitting physician Active Start: January 24, 2025 Dr. Philip Kamara DO Nurse Practitioner Active Start: January 24, 2025 Dr. Christine Borges MD Attending physician Active Start: January 24, 2025 Dr. Christine Borges MD Nurse Practitioner Active Start: January 24, 2025 Team Status: Active Member Role/Relationship Status Dates Dr. Christopher Bonilla MD Primary care physician Active Start: January 25, 2025 Dr. Juan Vines MD Emergency Departmen t Physician Active Start: January 25, 2025 Dr. Philip Kamara DO Admitting physician Active Start: January 25, 2025 Dr. Philip Kamara DO Nurse Practitioner Active Start: January 25, 2025 Dr. Christine Borges MD Attending physician Active Start: January 25, 2025 Dr. Chritsine Borges MD Nurse Practitioner Active Start: January 25, 2025 Team Status: Inactive Member Role/Relationship Status Dates Dr. Christopher Bonilla MD Primary care physician Active Start: March 04, 2025 End: March 04, 2025 Dr. Christopher Bonilla MD Referring Provider Active Start: March 04, 2025 End: March 04, 2025 FELIPE Siddiqi Attending physician Active S tart: March 04, 2025 End: March 04, 2025 Team Status: Active Member Role/Relationship Status Dates Dr. Christopher Bonilla MD Primary care physician Active Start: March 04, 2025 FELIPE Siddiqi Attending physician Active S tart: March 04, 2025 FELIPE Siddiqi Referring Provider Active St art: March 04, 2025 Goals (unrecognized section and content) Goals may be documented in a n alternate sectionGoals may be documented in an alternate sectionGoals may be documented in an alternate sectionGoals may be documented in an alternate sectionGoals may be documented in an alternate sectionGoals may be documented in an alternate sectionGoals may be documented in an alternate sectionGoals may be documented in an alternate sectionGoals may be documented in an alternate sectionGoals may be documented in an alternate sectionGoals may be documented in an alternate sectionGoals may be documented in an alternate sectionGoals may be documented in an alternate sectionGoals may be documented in an alternate section FOR RECORDS PERTAINING TO PATIENTS WHO ARE [...] BE BASED ON THE PRIMARY CLINICAL RECORDS. [facility] [employer] [facility]. provides no warranty or guarantee of the accuracy or completeness of information in this document.
[2025-04-16 01:01] LABS: AST(SGOT) 29 U/L (<=31); Alanine Aminotransfer ALT/SGPT 23 U/L (<=34); Albumin, Serum 4.3 g/dL (3.4-4.8); Alkaline Phosphatase 152 U/L (35-104); Anion Gap 11 (5-15); BUN 12 mg/dL (4-19); BUN/Creat Ratio 13.2 RATIO (10-20); Bilirubin, Direct 0.58 mg/dL (0.00-0.30); Calcium,Total 9.1 mg/dL (7.6-11.0); Carbon Dioxide 26.3 mmol/L (21.0-32.0); Chloride 98 mmol/L (98-108); Estimated Creatinine Clearance 40.47 ml/min (50-250); Globulin 3.3 g/dL (2.2-4.2); Glucose 128 mg/dL (70-99); Lipase 39 U/L (13-75); Magnesium 2.3 mg/dL (1.5-2.2); Potassium 4.4 mmol/L (3.3-5.1)
--- NOTE | 2025-04-16 01:46 | EX.ED.DYSGE1 ---
HPI History of Present Illness Chief Complaint: Abd Pain Informant: patient and friend Narrative Narrative: Patient is a 79-year-old female with past ministry of hypertension hyperlipidemia and paroxysmal atrial fibrillation currently on Coumadin. She states that around 8 or 9 PM this evening she started getting mid upper abdominal pain and felt like she was bloated. With this she states she has had a few bouts of nausea and vomiting. She denies any known sick contacts. She states there has been no fevers or chills. She denies any history of gallbladder disease or alcohol use or pancreatitis. However with her intestinal pain and bloating she is concerned for infection or blockage and therefore comes in for evaluation [facility] Medical History Anticoagulant long-term use CHF exacerbation History of atrial fibrillation Acute exacerbation of chronic obstructive pulmonary disease Chronic anticoagulation Hypoxia Mitral valve insufficiency Ernandez's esophagus with dysplasia Wears glasses Ambulates with cane Arthritis High cholesterol Difficulty chewing Shortness of breath on exertion History of echocardiogram Cardiology follow-up encounter Bloating Abdominal pain 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 Paroxysmal atrial fibrillation Essential hypertension Mixed hyperlipidemia Chronic atrial fibrillation with RVR Exudative pleural effusion Renal cyst Hepatic congestion Recurrent pleural effusion Leukocytosis Embolic infarction Renal infarction Splenic infarction Substance abuse Goiter Non-smoker Atrial fibrillation Congestive heart failure (CHF) Hypertension Rheumatoid arthritis COPD (chronic obstructive pulmonary disease) Pleural effusion Rheumatoid arthritis Paroxysmal atrial fibrillation with RVR Subtherapeutic international normalized ratio (INR) Chronic anticoagulation Pulmonary hypertension Hypokalemia Hyponatremia PNA (pneumonia) COPD (chronic obstructive pulmonary disease) PAF (paroxysmal atrial fibrillation) HTN (hypertension) GERD (gastroesophageal reflux disease) HLD (hyperlipidemia) Marfans syndrome Home Medications Medication Instructions Recorded Last Taken Type calcium carbonate 600 mg PO DAILY SUPPLEMENT 06/19/19 07/12/21 History multivitamin 1 tab PO DAILY SUPPLEMENT 06/19/19 07/12/21 History albuterol sulfate 90 mcg/actuation 2 puff inhalation Q4H PRN SOB 01/09/20 1 Week Ago History aerosol inhaler ~06/30/21 omeprazole 20 mg capsule,delayed 20 mg PO BID reflux 12/05/24 Unknown History release fluticasone propionate 50 1 - 2 spray intranasal DAILY PRN 01/22/25 Unknown History mcg/actuation nasal health maintnance spray,suspension warfarin 2 mg tablet 2 mg PO SUMOWEFR blood thinner 01/22/25 Unknown History amiodarone 200 mg tablet 100 mg (1/2 x 200 mg) PO DAILY 02/24/25 Unknown Rx heart rate #45 tabs gabapentin 100 mg capsule 100 mg PO BID PRN nerve pain 04/06/25 Unknown History warfarin 3 mg tablet 3 mg PO TUTHSA blood thinner 04/06/25 Unknown History metoprolol tartrate 50 mg tablet 50 mg PO TID #90 tabs 04/08/25 Unknown Rx spironolactone 25 mg tablet 25 mg PO BID #60 tabs 04/08/25 Unknown Rx Allergy/AdvReac Type Severity Reaction Status Date / Time pneumococcal vaccine (From Allergy Severe Rash Verified 04/16/25 00:01 Prevnar 13 (PF)) Latex, Natural Rubber Allergy Rash Verified 04/16/25 00:01 rosuvastatin calcium (From Allergy myalgias Verified 04/16/25 00:01 Crestor) ibuprofen AdvReac Nausea Verified 04/16/25 00:01 Family History Mother Diabetes Colon cancer Marfan syndrome Sister Diabetes Hypertension Brother Marfan syndrome COPD (chronic obstructive pulmonary disease) Brother Marfan syndrome Father Gastric ulcer GERD (gastroesophageal reflux disease) Surgical History History of eye surgery History of hysterectomy Social History household members: spouse and children housing: house Smoking Status: Never smoker alcohol intake: never substance use type: does not use caffeine: Yes Type: coffee Number of servings: 4 ROS ROS ED Constitutional Constitutional ED: Reports other Details: Positive fatigue ; Denies chills or fever(s) Eyes Eyes: Denies change in vision ENT ENT ED: Denies sore throat Cardiovascular Cardiovascular: Denies chest pain Respiratory/Chest Respiratory/Chest: Denies cough or dyspnea Gastrointestinal Gastrointestinal: Reports abdominal pain, constipation, nausea and vomiting; Denies diarrhea Genitourinary Genitourinary ED: Denies dysuria Musculoskeletal Musculoskeletal: Denies back pain or myalgias Integumentary Denies rash Neurologic Neurologic: Denies headache(s) Hematologic/Lymphatic Hematologic/Lymphatic: Reports easy bleeding and easy bruising EXAM Physical Exam Const Vital Signs: 04/16/25 00:01 04/16/25 02:00 04/16/25 04:00 Temperature 98.1 F Temperature Source Oral Pulse Rate 105 H 95 102 H Respiratory Rate 20 H 16 18 Blood Pressure 108/49 L 129/68 H 174/93 H Blood Pressure Mean 68 88 120 Pulse Ox 94 100 98 Oxygen Delivery Method Room Air Room Air 04/16/25 04:14 Temperature 98.2 F Temperature Source Pulse Rate 105 H Respiratory Rate 18 Blood Pressure 174/93 H Blood Pressure Mean 120 Pulse Ox 98 Oxygen Delivery Method Positive well nourished and well developed General Appearance ED: well developed; Negative for pallor HEENT Reports dry mucous membranes HEENT Narrative: Normocephalic atraumatic No tongue or lip swelling no airway edema or compromise No secondary findings in the posterior pharynx to suggest infection Mucous membranes are dry and tacky Mouth ED: Yes dry mucous membranes Mouth: dry mucous membranes Eyes PERRL and EOMs intact bilaterally General Eye ED: Yes scleral icterus Neck supple and no JVD Resp normal respiratory effort and clear to auscultation bilaterally Resp Narrative: Breath sounds are diminished throughout but overall clear to auscultation without signs of respiratory distress Cardio regular rhythm Rate: tachycardic and other Other Details: Slightly tachycardic rate with regular rhythm Radial and carotid pulses are equal and symmetric GI GI Narrative: Abdomen is distended with hypoactive bowel sound. There is pain along the midepigastric region however no voluntary guarding or rigidity No pulsatile mass or fluid wave There is increased tympany noted of the upper abdomen Auscultation: hypoactive bowel sounds Extremity normal to inspection Neuro oriented x3, CN's II-XII intact bilaterally and no sensory deficits noted Sensorium / Orientation: alert Motor Exam: strength 5/5 throughout Psych Psych Narrative: Patient has a depressed/flat affect Mood & Affect: depressed Skin no rashes or lesions noted and No skin turgor normal Skin Narrative: Skin turgor is increased General Skin Exam: Negative for jaundice or pallor MDM MDM MDM Narrative Medical decision making narrative: Patient arrived to the ER complaining of abdominal pain bloating and distention with bouts of nausea and vomiting. Her history and exam is concerning for small bowel obstruction. Secondary to this basic labs were obtained as well as a CT scan with IV contrast. Her prior ED and inpatient chart were reviewed from her recent admission on April 06. At that time she had abdominal bloating distention as well but was having increased shortness of breath from CHF exacerbation and A-fib with RVR. At this time heart appears regular rate and rhythm on exam going against atrial fibrillation and her pulse ox is in the mid 90s on room air going against a CHF exacerbation. Therefore I do not feel the need for reevaluation of these but has remained complaint for return to the ER as abdominal distention and pain she require workup for obstruction. Labs revealed no clinically significant findings such as acute blood loss anemia acute kidney injury or elevation to her lactic acid value going against infection or ischemia. The CT scan showed a large stone in the patient's common bile duct as well as distention of the gallbladder which then led to a gastric outlet obstruction. These changes were present roughly 10 days ago according to the radiologist. As chart review reveals these findings were not discussed with general surgery at the time of her previous admission I did discuss the case with general surgeon on-call Dr. Mcclain. She reviewed the CT scan and feels the patient needs an ERCP and cholecystectomy. However based on her chronic medical conditions and the changes within her abdomen she feels she would be better served at a higher level of care. She also recommends that the patient have an NG tube to help decompress the stomach. These findings were communicated to the patient and she initially agreed to transfer and requested [facility]. The NG tube was also ordered. While trying to place the NG tube the patient then slowly decided that she did not want the tube placement or transfer. I discussed with the patient and friend that by not decompressing the stomach and taking care of the causes of her obstruction that she will continue to have swelling and distention of her abdomen increasing pain nausea and vomiting leading to dehydration that her medications will not be digested and she risks worsening of her chronic medical conditions and ultimately risks perforation of her stomach and potential . The patient states that she understands these risks but at this time does not want to undergo any type of surgical procedure and would like to discuss the options with her family doctor and family. The patient is awake alert and oriented and competent to make this decision. Therefore as she does not want to be transferred to undergo definitive care for her gastric obstruction she will sign out AGAINST MEDICAL ADVICE. History & Record Review Discussion w/independent historian: Patient and Friend Additional record(s) reviewed:: Prior inpatient record, Prior ED visit and Prior labs Lab Data Attestation: I reviewed the patient's lab results. Labs: Laboratory Results - last 24 hr 04/15/25 04/16/25 04/16/25 23:50 00:29 02:04 WBC 11.5 H RBC 4.85 Hgb 13.9 Hct 43.2 MCV 89.1 MCH 28.7 MCHC 32.2 RDW Std Deviation 50.1 H RDW Coeff of Angelo 15.3 H Plt Count 397 MPV 8.9 Immature Gran % (Auto) 0.800 Neut % (Auto) 74.8 H Lymph % (Auto) 13.4 L [place] % (Auto) 9.5 Eos % (Auto) 0.8 Baso % (Auto) 0.7 Absolute Neuts (auto) 8.6 H Absolute Lymphs (auto) 1.54 Nucleated RBC % 0 PT 24.3 H INR 2.1 Sodium 135 Potassium 4.4 Chloride 98 Carbon Dioxide 26.3 Anion Gap 11 BUN 12 Creatinine 0.89 Estim Creat Clear Calc 40.47 L Est GFR (MDRD) Non-Af 66 BUN/Creatinine Ratio 13.2 Glucose 128 H Lactic Acid < 1.0 Calcium 9.1 Magnesium 2.3 H Total Bilirubin 1.00 Direct Bilirubin 0.58 H AST 29 ALT 23 Alkaline Phosphatase 152 H Total Protein 7.6 Albumin 4.3 Globulin 3.3 Lipase 39 Radiography Diagnostic Testing: Clinical Impression(s) from Imaging Studies Abdomen/Pelvis CT 04/16/25 00:22 IMPRESSION: Unchanged mild right pleural effusion. Decreased left pleural effusion. Unchanged bilateral basilar airspace disease of the lower lobes. Unchanged cardiomegaly. Unchanged scattered simple hepatic cysts with the largest measuring 2.2 cm. Unchanged hepatomegaly with hepatic steatosis. Unchanged hepatic heterogeneous perfusion, probably secondary to hepatic steatosis with chronic parenchymal liver disease. Distended gallbladder containing gallstones. The distended gallbladder is compressing the gastric outlet. Secondary partial gastric outlet obstruction. Fluid-filled distended stomach. Dilated biliary tree, unchanged. Unchanged 10.4 mm obstructing stone of the most distal aspect of the common bile duct. Unchanged intrahepatic and extrahepatic biliary ductal dilatation. The common bile duct measures 16.4 mm in its largest transverse dimension. Unchanged dilated pancreatic duct. Moderate amount of fecal residue in the large bowels. Uncomplicated colonic diverticulosis. Unchanged mild amount of free pelvic fluid. Prior hysterectomy, unchanged. Unchanged osteopenia with diffuse spondylosis. Unchanged sacral Tarlov nerve root cysts. No CT evidence of small-bowel obstruction. Reading Location: [place] [id number] Management Discussion w/another healthcare provider: Memory Care Program Director Discharge Plan Triage Chief Complaint: Abd Pain ED Provider: Abner Mata Dx/Rx/DC Orders Clinical Impression: Gastric outlet obstruction, Cholelithiasis, Calculus of common bile duct and gallbladder, Essential hypertension, Paroxysmal atrial fibrillation, Congestive heart failure, Current use of fci anticoagulation Instructions: Cholecystectomy, Anatomy of the Digestive System Prescriptions: No Action multivitamin Tablet 1 tab PO DAILY calcium carbonate 600 mg calcium (1,500 mg) tablet 600 mg PO DAILY albuterol sulfate 90 mcg/actuation HFA aerosol inhaler 2 puff INHALATION Q4H PRN (Reason: SOB) omeprazole 20 mg capsule,delayed release(DR/EC) 20 mg PO BID warfarin 3 mg tablet 3 mg PO TUTHSA gabapentin 100 mg capsule 100 mg PO BID PRN (Reason: nerve pain) spironolactone 25 mg Tablet 25 mg PO BID Qty: 60 0RF metoprolol tartrate 50 mg Tablet 50 mg PO TID Qty: 90 0RF warfarin 2 mg tablet 2 mg PO SUMOWEFR fluticasone propionate 50 mcg/actuation spray,suspension 1 - 2 spray INTRANASAL DAILY PRN (Reason: health maintnance) amiodarone 200 mg tablet 100 mg PO DAILY Qty: 45 3RF Primary Care Provider: Wes Magallon Referrals: Wes Magallon MD [Primary Care Provider, Medical] Activity Restrictions/Additional Instructions: Your CT scan showed a stone in your common bile duct which is causing gallbladder distention and compression on your stomach leading to a gastric outlet obstruction. This is medical terminology for your stomach is blocked and not draining. Without treatment your stomach will not empty and will continue to swell and distend and lead to recurrent bouts of vomiting pain and even perforation/rupture. Please return to the ER if you change your mind about transfer to an outside facility where they should be able to perform surgical procedures to resolve this problem. Print Language: Frisian Disposition Disposition: Against Medical Advice D/C Safety Score for UGIB Assessment [place] Bleeding Score (GBS): Stratifies upper GI bleeding patients who are "low-risk" and candidates for outpatient management. Hemoglobin, BUN, Recent Vital Signs: Hgb 13.9 g/dL (12.0-15.0) 04/15/25 23:50 BUN 12 mg/dL (4-19) 04/15/25 23:50 Pulse Rate 105 Blood Pressure 174/93 Total Risk Score: 2 Score Interpretation: Score of 0: A GBS of 0 is a “Low Risk” GI bleed, and is highly sensitive (99.6% in a 2007 retrospective study) for predicting which patients did not require any “medical intervention”: blood transfusion, endoscopy, or surgery. This was confirmed in a 2009 [facility] study where patients with a score of 0 were actually discharged and had no GI bleeding mortality at 6 month followup Score above 0: A GBS greater than zero suggests a “High Risk” GI bleed that is likely to require “medical intervention”: transfusion, endoscopy, or surgery. A higher GBS also correlated with a higher likelihood of needing intervention Scores >/= 6 are associated with >50% risk of needing intervention D/C Safety Score for LGIB Assessment Assessment Tool: Readmission and adverse event risk in patients with acute lower GI bleeding. Age, in years: >/= 70 Hemoglobin and Recent Vital Signs: Hgb 13.9 g/dL (12.0-15.0) 04/15/25 23:50 Pulse Rate 105 04/16/25 04:14 Blood Pressure 174/93 04/16/25 04:14 Probability of safe discharge: 99% Total Risk Score: 2 Score Interpretation: Probability Percentage of safe discharge (absence of rebleeding, blood transfusion, therapeutic intervention, 28 day readmission, or ) Score of 8 or below: Consider discharge, with appropriate precautions. Score of 9 or above: Discharge NOT recommended. Consider admission with further workup and resuscitation as necessary.
[2025-04-16 02:00] VITALS: BP 129/68; PULSE 95; RESP 16; O2SAT 100
[2025-04-16 02:28] LABS: Prothrombin Time (Protime)PT. 24.3 SECONDS (11.7-14.9)
[2025-04-16 04:00] VITALS: BP 174/93; PULSE 102; RESP 18; O2SAT 98
[2025-04-16] MEDS: Oxymetazoline 0.05% 1 SPRAY SPRAY.BTL 2 SPRAY NASAL (04:12)
[2025-04-16 04:14] VITALS: BP 174/93; PULSE 105; RESP 18; TEMP 36.8; O2SAT 98
--- NOTE | 2025-04-16 05:06 | ED.RN ---
After [address] an NG, patient refused for us to try further. Patient states "i just want to go home" Dr Mata sent to bedside to discuss care with patient. After lengthy discussion about the risks of her leaving patient wishes to leave AMA. Patients daughter calls for an update during this, patients asks this RN to not update daughter and to tell her she will call her when she leaves. Patient was assisted in getting dressed and into a wheelchair and out to friends car who will be taking her home. Patient reminded multiple times that she can come back at anytime to continue our plan of care.
== END 2025-04-16 04:58 | disposition left against medical advice (07) ==
PROVIDERS: Emergency Provider Emergency Medicine; PCP Family Medicine; Visit Provider Emergency Medicine
DX: K31.1 Adult hypertrophic pyloric stenosis (principal); I11.0 Hypertensive heart disease with heart failure; I50.9 Heart failure, unspecified; J44.9 Chronic obstructive pulmonary disease, unspecified; I48.0 Paroxysmal atrial fibrillation; R10.10 Upper abdominal pain, unspecified; Z79.01 Long term (current) use of anticoagulants; K80.20 Calculus of gallbladder without cholecystitis without obstruction; K80.50 Calculus of bile duct without cholangitis or cholecystitis without obstruction; Z90.710 Acquired absence of both cervix and uterus; E78.2 Mixed hyperlipidemia; K21.9 Gastro-esophageal reflux disease without esophagitis; Z79.899 Other long term (current) 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; Z79.51 Long term (current) use of inhaled steroids; Z53.29 Procedure and treatment not carried out because of patient's decision for other reasons
CPT/HCPCS: 74177; 80048; 80076; 80162; 83605; 83690; 83735; 85025; 85610; 96361; 96374; 96375; 99285; Q9967; A4216; J2405

== ENCOUNTER → 2025-04-28 | Outpatient (CLI) | payer MEDICARE, MEDICAID, SELFPAY ==
--- NOTE | 2025-04-28 11:31 | EKG12_ITS ---
Test Reason : PAF Blood Pressure : */* mmHG Vent. Rate : 106 BPM Atrial Rate : 119 BPM P-R Int : * ms QRS Dur : 82 ms QT Int : 362 ms P-R-T Axes : * -12 42 degrees QTcB Int : 480 ms Atrial fibrillation with rapid ventricular response Abnormal ECG Confirmed by EDWARD MARKS, REJI ([id number]), social media editor NIRAV VENTURA ([id number]) on 04/29/2025 10:21:17 AM Referred By: John Last Confirmed By: REJI LEON MD
== END | disposition home or self-care (01) ==
LOC: PSN 11:26
PROVIDERS: PCP Family Medicine; Referring Provider Student in an Organized Health Care Education/Training Program; Visit Provider Student in an Organized Health Care Education/Training Program
DX: I48.0 Paroxysmal atrial fibrillation (principal)
CPT/HCPCS: 93005

== ENCOUNTER 2025-05-01 17:21 | Emergency (ER) | payer MEDICARE, MEDICAID, SELFPAY ==
[2025-05-01 17:23] VITALS: BP 136/97; PULSE 109; RESP 22; TEMP 36.6; O2SAT 97; BMI 23.8
--- NOTE | 2025-05-01 17:38 | EKG12_ITS ---
Test Reason : SOB Blood Pressure : */* mmHG Vent. Rate : 109 BPM Atrial Rate : 264 BPM P-R Int : * ms QRS Dur : 90 ms QT Int : 366 ms P-R-T Axes : * 18 49 degrees QTcB Int : 492 ms Atrial flutter with variable A-V block Abnormal ECG Confirmed by AD PACKER ([id number]), editor newspaper BALA HILLIARD ([id number]) on 05/05/2025 6:38:08 AM Referred By: Confirmed By: AD PACKER
[2025-05-01] MEDS: 0.9% Normal Saline (1000mL) 1,000 ML 999 ML IV (17:51)
[2025-05-01] MEDS: fentaNYL 100 MCG/2 ML Ampul 50 MCG IV ×2 (17:52→20:20)
--- OUTSIDE RECORDS SUMMARY | 2025-05-01 18:02 | XMS RPT_ITS | CCD ---
Author Organization [facility] CliniSyut Care Team Providers Care Order Management Specialist Name Role Phone AMBER MANNING Unavailable Unavailable Monroe Burden Unavailable Unavailable NIGELMAT ORDONEZNETH Unavailable Unavailable MAT MANNINGNETH Unavailable Unavailable Monroe Burden RAlexander Unavailable Unavailable Monroe Burden Unavailable Unavailable AMBER MANNING Unavailable Unavailable AMBER MANNING Unavailable Unavailable Christopher Bonilla MD Primary Care Provider Mirtha RN, Elisabeth Owens Unavailable Unavail able Junaid Arriaga Unavailable Dr. Christopher Bonilla Primary Care Provider Dr. Christopher Bonilla Referring Provider Jesse OFFBEARER, CHEMAC Hima Attending Provider Dr. Deidra Panchal Emergency Provider Dr. aNny Pinon Admit Provider Dr. Joleen Foster Attending Provider Dr. Joleen Foster Other Provider Dr. Oj Lorenzo Attending Provider Dr. Oj Lorenzo Other Provider MD Robert Healy Emergency Provider Dr. Dolly Reich Admit Provider Dr. Dolly Reich Attending Provider Dr. Dolly Reich Other Provider Dr. Joleen Foster Referring Provider Dr. Flaquito Mariee Attending Provider Dr. Luis Hall Emergency Provider Dr. Elisabeth Nascimento Admit Provider Dr. Elisabeth Nascimento Attending Provider Dr. Elisabeth Nascimento Other Provider Dr. Flaquito Mariee Other Provider Dr. Dwayne Garcia Other Provider Emiliano CHRISTINA, OFFBEARER-C Amy Other Provider Dr. Malika Jain Other Provider Dr. Elisabeth Nascimento Referring Provider Dr. Dwayne Garcia Attending Provider Dr. Christine Borges Other Provider Dr. Spring Cabrera Attending Provider Dr. Christine Borges Attending Provider [phone] Emiliano CHRISTINA, OFFBEARER-C Amy Attending Provider [phone] Dr. Christopher Bonilla Primary Care Provider Dr. Christopher Bonilla Referring Provider Jesse CHRISTINA, OFFBEARER-C Hima Attending Provider Santos Calvin Unavailable Mirtha TODD, Elisabeth Owens Unavailable Dr. Christopher Bonilla Primary Care Provider Dr. Joleen Foster Attending Provider Dr. Joleen Foster Other Provider Dr. Oj Lorenzo Attending Provider Dr. Oj Lorenzo Other Provider Emiliano CHRISTINA, OFFBEARER-C Amy Referring Provider Flaquito Mariee Unavailable Christopher Bonilla MD Primary Care Provider Mirtha TODD, Elisabeth Owens Unavailable Junaid Arriaga Unavailable Santos Calvin Miguel Unavailable Flaquito Mariee Unavailable Christopher Bonilla MD Unavailable Anastasiya MARKS, Mera Unavailable [phone] Mo TODD, Erik Unavailable Dr. Christopher Bonilla Primary Care Provider Emiliano OFFBEARER, OFFBEARER-C Amy Other Provider Dr. Dwayne Garcia Attending Provider Dr. Flaquito Mariee Attending Provider Dr. Christopher Bonilla Referring Provider Jesse OFFBEARER, OFFBEARER-C Hima Attending Provider Dr. Oj Mariano Emergency [...] Provider Dr. Dwayne Garcia Attending Provider Emiliano OFFBEARER, OFFBEARER-C Amy Other Provider Dr. Nany Pinon Referring [...] Alberto Gill Other Provider Unavailab le Emiliano OFFBEARER, OFFBEARER-C Amy Other Provider Dr. Fatimah Mcclain Other [...] Provider Dr. Christopher Bonilla Referring Provider Emiliano OFFBEARER, OFFBEARER-C Amy Attending Provider [phone] Dr. Abimael Evans Attending Provider [phone] Jesse OFFBEARER, OFFBEARER-C Hima Attending Provider Dr. Christopher Bonilla Primary Care Provider Dr. Christopher Bonilla Referring Provider Dr. Flaquito Mariee Attending Provider Dr. Abimael Evans Attending Provider [phone] Nikunj MARKS, Santos Lubin Unavailable Flaquito Mariee Unavailable Anastasiya MARKS, Mera Unavailable [phone] Enrrique TODD, Jolene Mary Unavailable Unavailtrina [...] Christopher Bonilla MD Primary Care Provider [phone] Mo TODD, Erik Unavailable Haagen TOPOLOGY PROFESSOR.Dalila CLARKE Unavailable Suppan TOPOLOGY PROFESSOR.HOT SAW OPERATOR, Mimi A Unavailable Suppan TOPOLOGY PROFESSOR.HOT SAW OPERATOR, Mimi A Unavailable Suppan TOPOLOGY PROFESSOR.HOT SAW OPERATOR, Mimi A Unavailable Dr. Christopher Bonilla MD Primary Care Provider Dr. Christopher Bonilla MD Referring Provider Hima Thomas Attending Provider Hima Thomas Referring Provider Mimi Alvares Attending Provider Mimi Alvares Referring Provider Hima Thomas Other Provider Dr. Pablo Watson DO Referring Provider BebeZahida SCHMITZ, Dr. Shah Emergency Provider Walter SCHMTIZ, Dr. Shah Attending Provider Mohinder MARKS, Dr. Martinez Emergency Provider Anh SCHMITZ, Dr. Palacios Admit Provider Anh SCHMITZ, Dr. Palacios Attending Provider Anh SCHMITZ, Dr. Palacios Other Provider Katerina MARKS, Dr. Christine Cox Attending Provider Katerina MARKS, Dr. Christine Cox Other Provider Kori MARKS, Dr. Harvey Primary Care Physician Jesse OFFBEARER-CHima Attending Physician Suppan BULL CHAIN OPERATOR, Mimi Attending Physician [phone] Jesse OFFBEARER-CHima Nurse Practitioner [phone] Walter SCHMITZ, Dr. Shah Attending Physician BebeZahida SCHMITZ, Dr. Shah Emergency Departmen t Physician Mohinder MARKS, Dr. Martinez Emergency Department Physici an Anh SCHMITZ, Dr. Palacios Admitting Physician Anh SCHMITZ, Dr. Palacios Nurse Practitioner Katerina MARKS, Dr. Christine Cox Attending Physician Katerina MARKS, Dr. Christine Cox Nurse Practitioner John Saleh Attending Physician John Saleh Referring Provider PHYSICIAN, NONE Attending Unavailable PHYSICIAN, NONE Primary Care Unavailable KORI, CHRISTOPHER Tyler Primary Care Unavailable CHRISTOPHER BONILLA Referring Unavailable KORI, CHRISTOPHER Tyler Primary Care Unavailable KORI, CHRISTOPHER Tyler Referring Unavailable KORI, CHRISTOPHER Tyler Primary Care Unavailable KORI, CHRISTOPHER Tyler Primary Care Unavailable CHANNING LIZARRAGA Attending Unavailable KORI, CHRISTOPHER Tyler Primary Care Unavailable KORI, CHRISTOPHER Tyler Primary Care Unavailable DALILA JENSEN Attending [...] Care Unavailable KORI, CHRISTOPHER J Attending Unavailable KORI, CHRISTOPHER J Primary Care Unavailable KORI, CHRISTOPHER J Referring Unavailable KORI, CHRISTOPHER J Primary Care Unavailable KORI, CHRISTOPHER J Primary Care Unavailable Kori, Christopher Referring Unavailable Kori, Christopher Primary Care Unavailable Jesse OFFBEARER, Hima Attending Unavailable Lavallette, Christopher Primary Care Unavailable Jesse OFFBEARER, Hima Attending Unavailable Jesse OFFBEARER, Hima Referring Unavailable SuppMimi galdamez Referring Unavailable Mimi Encinas Attending Unavailable Kori, Christopher Primary Care Unavailable Jesse OFFBEARER, Hima Consulting Unavailable Philip Kamara Consulting Unavailable Christine Borges Attending Unavailable Philip Kamara Admitting Unavailable Lavallette, Christopher Primary Care Unavailable Christine Borges Consulting Unavailable Pablo Watson Referring Unavailabl e Bebe-ZahidaPablo Attending Unavailabl e Lavallette, Christopher Primary Care Unavailable Philip Kamara Consulting Unavailable Philip Kamara Admitting Unavailable Christine Borges Attending Unavailable Lavallette, Christopher Primary Care Unavailable Oj Lorenzo Attending Unavailable Lavallette, Christopher Primary Care Unavailable Azouz, Samer Consulting Unavailable Collin, Ant Admitting Unavailable Collin, Ant Consulting Unavailable Regis Lastyler Referring Unavailable John Last Attending Unavailable Lavallette, Christopher Primary Care Unavailable Bony Farah Referring Unavailable Bony Farah Attending Unavailable Lavallette, Christopher Primary Care Unavailable Lavallette, Christopher Primary Care Unavailable Abner Mata Attending Unavailable Scottiter, John Referring Unavailable Ildefonso Lastr Attending Unavailable Lavallette, Christopher Primary Care Unavailable Lavallette, Christopher Primary Care Unavailable Collin, Ant Attending Unavailable Azouz, Samer Consulting Unavailable Bony Meza Attending Unavailable Kori, Christopher Primary Care Unavailable Collin, Ant Admitting Unavailable Azouz, Samer Consulting Unavailable Collin, Ant Consulting Unavailable Oj Lorenzo Consulting Unavailable Oj Lorenzo Attending Unavailable Dwayne Garcia Attending Unavailable Philip Kamara Attending Unavailable John Last Attending Unavailable Christopher Bonilla Referring Unavailable Christopher Bonilla Primary Care Unavailable Christopher Bonilla Referring Unavailable Christopher Bonilla Primary Care Unavailable Yanely Correa Attending Unavail able Allergies Allergy Classification Reported Allergen(s) Allergy Type Date of Onset Reaction(s) Facility HMG-CoA Reductase Inhibitors (statins) (1 source) rosuvastatin Drug Allergy 1 Other: See Comments [facility] Work Phone: Latex (1 source) Latex Substance Allergy 9 Rash [facility] NSAIDs (1 source) Ibuprofen Drug Allergy 9 Other: See Comments [facility] Streptococcus pneumoniae serotype 1 capsular antigen diphtheria [id number] protein conjugate vaccine / Streptococcus pneumoniae serotype 14 capsular antigen diphtheria MRG259 protein conjugate vaccine / Streptococcus pneumoniae serotype 18C capsular antigen diphtheria RYA853 protein conjugate vaccine / Streptococcus pneumoniae serotype 19A capsular antigen diphtheria ZIP523 protein conjugate vaccine / Streptococcus pneumoniae serotype 19F capsular antigen diphtheria IQS831 protein conjugate vaccine / Streptococcus pneumoniae serotype 23F capsular antigen diphtheria NYC506 protein conjugate vaccine / Streptococcus pneumoniae serotype 3 capsular antigen diphtheria EZI581 protein conjugate vaccine / Streptococcus pneumoniae serotype 4 capsular antigen diphtheria VES679 protein conjugate vaccine / Streptococcus pneumoniae serotype 5 capsular antigen diphtheria KJX638 protein conjugate vaccine / Streptococcus pneumoniae serotype 6A capsular antigen diphtheria XOW667 protein conjugate vaccine / Streptococcus pneumoniae serotype 6B capsular antigen diphtheria GPQ270 protein conjugate vaccine / Streptococcus pneumoniae serotype 7F capsular antigen diphtheria BNH786 protein conjugate vaccine / Streptococcus pneumoniae serotype 9V capsular antigen diphtheria ERH312 protein conjugate vaccine (1 source) Streptococcus pneumoniae serotype 1 capsular antigen diphtheria IEX317 protein conjugate vaccine / Streptococcus pneumoniae serotype 14 capsular antigen diphtheria HGT274 protein conjugate vaccine / Streptococcus pneumoniae serotype 18C capsular antigen diphtheria KBA955 protein conjugate vaccine / Streptococcus pneumoniae serotype 19A capsular antigen diphtheria ANR419 protein conjugate vaccine / Streptococcus pneumoniae serotype 19F capsular antigen diphtheria OVJ350 protein conjugate vaccine / Streptococcus pneumoniae serotype 23F capsular antigen diphtheria PDY375 protein conjugate vaccine / Streptococcus pneumoniae serotype 3 capsular antigen diphtheria URT252 protein conjugate vaccine / Streptococcus pneumoniae serotype 4 capsular antigen diphtheria OCB323 protein conjugate vaccine / Streptococcus pneumoniae serotype 5 capsular antigen diphtheria BVD538 protein conjugate vaccine / Streptococcus pneumoniae serotype 6A capsular antigen diphtheria CWI970 protein conjugate vaccine / Streptococcus pneumoniae serotype 6B capsular antigen diphtheria MZN337 protein conjugate vaccine / Streptococcus pneumoniae serotype 7F capsular antigen diphtheria MMW575 protein conjugate vaccine / Streptococcus pneumoniae serotype 9V capsular antigen diphtheria UOV546 protein conjugate vaccine Drug Allergy 6 [facility] (20 sources) ibuprofen; 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: [IBUPROFEN] Drug Allergy 9 Other: See Comments [facility] (20 sources) Latex; 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: [LATEX] Propensity to adverse reactions (disorder) 9 [facility] (20 sources) rosuvastatin; 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: [ROSUVASTATIN CALCIUM] Drug Allergy 1 Other: See Comments [facility] (20 sources) PNEUMOC 13-CHELY CONJ-DIP CR(PF); 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: [PNEUMOC 13-CHELY CONJ-DIP CR(PF)] Propensity to adverse reactions (disorder) 6 [facility] (20 sources) natural latex rubber; 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: [Latex, Natural Rubber] Allergy to substance 2 [facility] (20 sources) Pneumococcal vaccine Drug Allergy 2 [facility] (13 sources) atorvastatin; 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: [ATORVASTATIN] Drug Allergy 5 Other: See Comments, Myalgia [facility] (1 source) Pneumococcal vaccine Drug Allergy 5 [facility] Repository Medications Current Medications Medication Drug Class(es) Dates Sig (Normalized) Sig (Original) [id number] 200 actuat albuterol 0.09 mg/actuat metered dose [...] 1 tablet by carly th once daily. fluticasone propionate 0.05 mg/actuat metered [...] 40 mg PO TWICE A DAY 180 May 01, 2024 9:04am December 05, 2024 [...] on above: Take 1 capsule by [facility] once daily. spironolactone 25 mg oral [...] Comment on above: Take 1 tablet by [facility] twice daily for 7 days. WALKER ROLLATOR SEAT WITH 6 WHEELS - RED (20 sources) Start: 07-23-19 WALKER ROLLATOR SEAT WITH 6 WHEELS - RED Indications: Gait instability Daily use R26.81 Gait instability (primary encounter diagnosis) 1 Each 07/23/2021 Active Start: 07-23-2021 WALKER ROLLATO R SEAT WITH 6 WHEELS - RED Indications: Gait instability Daily use R26.81 Gait instability (primary encounter diagnosis) 1 Each 0 07/23/2021 Suspended Start: 07-23-2021 WALKER ROLLATO R SEAT WITH 6 WHEELS - RED Indications: Gait instability Daily [...] 5 mg tab let 2 mg on MWF, 4 mg all other days or as directed 90 tablet 3 12/04/2018 12/23/2020 Discontinued (Duplicate Entry) Comment on above: 4 mg on MWF, 2 mg al l other days or as directed 4 mg on M/F, 2 mg al l other days or as directed [The details of the medication are not available because there are pending changes by a home health clinician.] 4 mg on , , , 2 m g all other days. 4 mg on Monday and , 2 mg all other days Take 1 tablet by daily as directed. 4 mg Mon,Mon,Mon and [...] 1 tablet by carly th twice daily. predniSONE 20 mg oral tablet (3 sources) Start: 5 End: 5 take 2 tablets by mouth once daily Prednisone 20 mg tablet Discontinued 40 mg PO DAILY 10 0 January 25, 2025 12:00am March 04, 2025 1:04pm salmon calcitonin 200 unt/actuat nasal spray (20 sources) Calcitonin Start: 3 End: 3 calcitonin,salmon, (MIACALCIN, FORTICAL) 200 unit/actuation nasal spray Use 1 [place] in the nose once daily. 6 mL 1 07/21/2022 05/10/2023 Discontinued (Other) Comment on above: Use 1 [place] in the n ose once daily. vitamin k1 5 mg oral tablet (3 sources) Warfarin Reversal Agent, Vitamin K Start: 3 End: 3 take 1 tablet by mouth once phytonadione, vitamin K1, (MEPHYTON) 5 mg tablet Take 1 tablet by mouth one time only for 1 dose. 1 tablet 0 05/01/2023 05/01/2023 Discontinued Comment on above: Take 1 tablet by carly th one time only for 1 dose. 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; 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: [Chronic anticoagulation] Onset: 6 Episodic Other aftercare (2 sources) Other senior living (current) 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; 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: [Other senior living (current) 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] Onset: 5 Episodic Other [...] Marfan's syndrome, unspecified; 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: [Marfan's syndrome] Onset: 9 Chronic Other diseases of kidney and ureters [...] other serum enzymes] Episodic Other liver diseases (1 source) Hepatomegaly, not elsewhere classified; 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: [Hepatomegaly] Onset: 5 Episodic Other liver diseases (2 sources) Abnormal levels of other serum enzymes; 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: [Abnormal levels of other serum enzymes] Onset: 5 Episodic Other lower respiratory disease [...] Onset: 2 Resolved: 3 09-19-2022 Episodic Other circulatory disease (1 source) Hypotension, [...] Test Name Value Interpretation Reference Range Facility Abdomen/Pelvis W IV Cont ONL Yon 04-16-2025 Abdomen/Pelvis W IV Cont ONLY Normal [facility] Basic Metabolic Profile (BMP )on 04-16-2025 BUN/CRE 13.2 RATIO Normal 03-24 [facility] Comment on above: Performed By: #### L 501.2450, L501.5200, L500.3400, L100.0100, L500.2500, L503.6005 ####[facility] [address] [place], [address] Calcium [Mass/Vol] 9.1 mg/dL Normal 7.6-11.0 [facility] Comment on above: Performed By: #### L 501.2450, L501.5200, L500.3400, L100.0100, L500.2500, L503.6005 ####[facility] [address] [place], [address] Chloride [Moles/Vol] 98 mmol/L Normal 98-108 [facility] Comment on above: Performed By: #### L 501.2450, L501.5200, L500.3400, L100.0100, L500.2500, L503.6005 ####[facility] [address] [place], [address] CO2 [Moles/Vol] 26.3 mmol/L Normal 21.0-32.0 [facility] Comment on above: Performed By: #### L 501.2450, L501.5200, L500.3400, L100.0100, L500.2500, L503.6005 ####[facility] [address] [place], [address] Creatinine [Mass/Vol] 0.89 mg/dL Normal 0.70-1.20 [facility] Comment on above: Performed By: #### L 501.2450, L501.5200, L500.3400, L100.0100, L500.2500, L503.6005 ####[facility] [address] [place], [address] ECRCL 40.47 ml/min Low 50-250 [facility] Comment on above: Performed By: #### L 501.2450, L501.5200, L500.3400, L100.0100, L500.2500, L503.6005 ####[facility] [address] [place], [address] GAP 11 Normal 5-15 [facility] Comment on above: Performed By: #### L 501.2450, L501.5200, L500.3400, L100.0100, L500.2500, L503.6005 ####[facility] [address] [place], [address] GFR/1.73 sq M.predicted among non-blacks MDRD (S/P/Bld) [Vol rate/Area] 66 mL/min/{1.73_m2} Normal >60 [facility] Comment on above: Result Comment: mL/m in/1.73m2 CKD-EPI Creatinine Equation (2020) Performed By: #### L 501.2450, L501.5200, L500.3400, L100.0100, L500.2500, L503.6005 ####[facility] [address] [place], [address] Glucose [Mass/Vol] 128 mg/dL High 70-99 [facility] Comment on above: Performed By: #### L 501.2450, L501.5200, L500.3400, L100.0100, L500.2500, L503.6005 ####[facility] [address] [place], [address] Potassium [Moles/Vol] 4.4 mmol/L Normal 3.3-5.1 [facility] Comment on above: Performed By: #### L 501.2450, L501.5200, L500.3400, L100.0100, L500.2500, L503.6005 ####[facility] [address] [place], [address] Sodium [Moles/Vol] 135 mmol/L Normal 133-145 [facility] Comment on above: Performed By: #### L 501.2450, L501.5200, L500.3400, L100.0100, L500.2500, L503.6005 ####[facility] [address] [place], [address] Urea nitrogen [Mass/Vol] 12 mg/dL Normal 4-19 [facility] Comment on above: Performed By: #### L 501.2450, L501.5200, L500.3400, L100.0100, L500.2500, L503.6005 ####[facility] [address] [place], [address] CBC W/Diff, Automatedon 11- 2-2024 Absolute Lymph 1.54 X10 3/uL Normal 0.83-4.51 [facility] Comment on above: Performed By: #### L 501.2450, L501.5200, L500.3400, L100.0100, L500.2500, L503.6005 ####[facility] [address] [place], [address] Absolute Neut 8.6 X10 3/uL High 2.0-7.7 [facility] Comment on above: Performed By: #### L 501.2450, L501.5200, L500.3400, L100.0100, L500.2500, L503.6005 ####[facility] [address] [place], [address] Basophils/100 WBC (Bld) 0.7 % Normal 0-1 [facility] Comment on above: Performed By: #### L 501.2450, L501.5200, L500.3400, L100.0100, L500.2500, L503.6005 ####[facility] [address] [place], [address] Eosinophils/100 WBC (Bld) 0.8 % Normal 0-5 [facility] Comment on above: Performed By: #### L 501.2450, L501.5200, L500.3400, L100.0100, L500.2500, L503.6005 ####[facility] [address] [place], [address] Erythrocyte distribution width (RBC) [Ratio] 15.3 % High 11.6-14.6 [facility] Comment on above: Performed By: #### L 501.2450, L501.5200, L500.3400, L100.0100, L500.2500, L503.6005 ####[facility] [address] [place], [address] Hematocrit (Bld) [Volume fraction] 43.2 % Normal 37-47 [facility] Comment on above: Performed By: #### L 501.2450, L501.5200, L500.3400, L100.0100, L500.2500, L503.6005 ####[facility] [address] [place], [address] Hemoglobin (Bld) [Mass/Vol] 13.9 g/dL Normal 12.0-15.0 [facility] Comment on above: Performed By: #### L 501.2450, L501.5200, L500.3400, L100.0100, L500.2500, L503.6005 ####[facility] [address] [place], [address] IG% 0.800 Normal 0.0-0.9 [facility] Comment on above: Result Comment: IG% - Immature Granulocytes (promyelocytes, myelocytes andmetamyelocytes) > 1% indicates that a LEFT SHIFT is Present. Performed By: #### L 501.2450, L501.5200, L500.3400, L100.0100, L500.2500, L503.6005 ####[facility] [address] [place], [address] Lymphocytes/100 WBC (Bld) 13.4 % Low 19-41 [facility] Comment on above: Performed By: #### L 501.2450, L501.5200, L500.3400, L100.0100, L500.2500, L503.6005 ####[facility] [address] [place], [address] MCH (RBC) [Entitic mass] 28.7 pg Normal 27.0-32.0 [facility] Comment on above: Performed By: #### L 501.2450, L501.5200, L500.3400, L100.0100, L500.2500, L503.6005 ####[facility] [address] [place], [address] MCHC (RBC) [Mass/Vol] 32.2 g/dL Normal 32-36 [facility] Comment on above: Performed By: #### L 501.2450, L501.5200, L500.3400, L100.0100, L500.2500, L503.6005 ####[facility] [address] [place], [address] MCV (RBC) [Entitic vol] 89.1 fL Normal 81-99 [facility] Comment on above: Performed By: #### L 501.2450, L501.5200, L500.3400, L100.0100, L500.2500, L503.6005 ####[facility] [address] [place], [address] Monocytes/100 WBC (Bld) 9.5 % Normal 0-10 [facility] Comment on above: Performed By: #### L 501.2450, L501.5200, L500.3400, L100.0100, L500.2500, L503.6005 ####[facility] [address] [place], [address] Neutrophils/100 WBC (Bld) 74.8 % High 47-70 [facility] Comment on above: Performed By: #### L 501.2450, L501.5200, L500.3400, L100.0100, L500.2500, L503.6005 ####[facility] [address] [place], [address] Nucleated RBC (Bld) [#/Vol] 0 10*3/uL Normal 0-5 [facility] Comment on above: Performed By: #### L 501.2450, L501.5200, L500.3400, L100.0100, L500.2500, L503.6005 ####[facility] [address] [place], [address] Platelet mean volume (Bld) [Entitic vol] 8.9 fL Normal 6.2-12.0 [facility] Comment on above: Performed By: #### L 501.2450, L501.5200, L500.3400, L100.0100, L500.2500, L503.6005 ####[facility] [address] [place], [address] Platelets (Bld) [#/Vol] 397 10*3/uL Normal 150-450 [facility] Comment on above: Performed By: #### L 501.2450, L501.5200, L500.3400, L100.0100, L500.2500, L503.6005 ####[facility] [address] [place], [address] RBC (Bld) [#/Vol] 4.85 10*6/uL Normal 4.2-5.4 [facility] Comment on above: Performed By: #### L 501.2450, L501.5200, L500.3400, L100.0100, L500.2500, L503.6005 ####[facility] [address] [place], [address] RDW SD 50.1 fl High 35.1-43.9 [facility] Comment on above: Performed By: #### L 501.2450, L501.5200, L500.3400, L100.0100, L500.2500, L503.6005 ####[facility] [address] [place], [address] WBC (Bld) [#/Vol] 11.5 10*3/uL High 4.4-11.0 [facility] Comment on above: Performed By: #### L 501.2450, L501.5200, L500.3400, L100.0100, L500.2500, L503.6005 ####[facility] [address] [place], [place], [id number] Digoxin Levelon 04-16-2025 DIG 0.60 ng/mL Normal 0.00-2.00 [facility] Comment on above: Performed By: #### L 501.7510 ####[facility] [address] [place], [place], [id number] Emergency Department Summary on 04-16-2025 Emergency Department Summary Normal [facility] Lactic Acidon 04-16-2025 Lactate [Moles/Vol] mmol/L Normal 0.0-2.0 [facility] Comment on above: Order Comment: Y Performed By: #### L 501.2450, L501.5200, L500.3400, L100.0100, L500.2500, L503.6005 ####[facility] [address] [place], [place], [id number] Lipaseon 04-16-2025 Lipase [Catalytic activity/Vol] 39 U/L Normal 13-75 [facility] Comment on above: Result Comment: Ronna box note:LIPASE revised reference range effective 22.New Lipase methodology. Expected to produce lower valuesthan the previous assay method.NEW Reference Range: 13 - 75 U/L Performed By: #### L 501.2450, L501.5200, L500.3400, L100.0100, L500.2500, L503.6005 ####[facility] [address] [place], [address] Liver Profileon 04-16-2025 Albumin [Mass/Vol] 4.3 g/dL Normal 3.4-4.8 [facility] Comment on above: Performed By: #### L 501.2450, L501.5200, L500.3400, L100.0100, L500.2500, L503.6005 ####[facility] [address] [place], [address] ALK PHOS 152 U/L High 35-104 [facility] Comment on above: Performed By: #### L 501.2450, L501.5200, L500.3400, L100.0100, L500.2500, L503.6005 ####[facility] [address] [place], [address] ALT [Catalytic activity/Vol] 23 U/L Normal <=34 [facility] Comment on above: Performed By: #### L 501.2450, L501.5200, L500.3400, L100.0100, L500.2500, L503.6005 ####[facility] [address] [place], [address] AST [Catalytic activity/Vol] 29 U/L Normal <=31 [facility] Comment on above: Performed By: #### L 501.2450, L501.5200, L500.3400, L100.0100, L500.2500, L503.6005 ####[facility] [address] [place], [address] Bilirubin [Mass/Vol] 1.00 mg/dL Normal 0.00-1.30 [facility] Comment on above: Performed By: #### L 501.2450, L501.5200, L500.3400, L100.0100, L500.2500, L503.6005 ####[facility] [address] [place], [address] Bilirubin.direct [Mass/Vol] 0.58 mg/dL High 0.00-0.30 [facility] Comment on above: Performed By: #### L 501.2450, L501.5200, L500.3400, L100.0100, L500.2500, L503.6005 ####[facility] [address] [place], [address] Globulin (S) [Mass/Vol] 3.3 g/dL Normal 2.2-4.2 [facility] Comment on above: Performed By: #### L 501.2450, L501.5200, L500.3400, L100.0100, L500.2500, L503.6005 ####[facility] [address] [place], [address] T PROT 7.6 g/dL Normal 5.9-8.4 [facility] Comment on above: Performed By: #### L 501.2450, L501.5200, L500.3400, L100.0100, L500.2500, L503.6005 ####[facility] [address] [place], [address] Magnesiumon 04-16-2025 Magnesium [Mass/Vol] 2.3 mg/dL High 1.5-2.2 [facility] Comment on above: Performed By: #### L 501.2450, L501.5200, L500.3400, L100.0100, L500.2500, L503.6005 ####[facility] [address] [place], [address] Prothrombin Time w/INRon INR Coag (PPP) [Relative time] 2.1 {INR} Normal [facility] Comment on above: Performed By: #### L 300.3900 ####[facility] [address] [place], [address] PT Coag (PPP) [Time] 24.3 s High 11.7-14.9 [facility] Comment on above: Performed By: #### L 300.3900 ####[facility] [address] [place], [address] Prothrombin Time w/INRon INR Normal [facility] Comment on above: Result Comment: Canc elled via OM: Order cancelled - Patient discharged Performed By: #### L 300.3900 ####[facility] [address] [place], [address] PROTIME Normal 11.7-14.9 [facility] Comment on above: Result Comment: Canc elled via OM: Order cancelled - Patient discharged Performed By: #### L 300.3900 ####[facility] [address] [place], [address] Prothrombin Time w/INRon INR Normal [facility] Comment on above: Result Comment: Canc elled via OM: Order cancelled - Patient discharged Performed By: #### L 300.3900 ####[facility] [address] [place], [address] PROTIME Normal 11.7-14.9 [facility] Comment on above: Result Comment: Canc elled via OM: Order cancelled - Patient discharged Performed By: #### L 300.3900 ####[facility] [address] [place], [address] Basic Metabolic Profile (BMP )on 04-08-2025 BUN/CRE 15.2 RATIO Normal 10-20 [facility] Comment on above: Performed By: #### L 100.0500, L500.3400, L500.2500 ####[facility] [address] [place], [address] Calcium [Mass/Vol] 8.9 mg/dL Normal 7.6-11.0 [facility] Comment on above: Performed By: #### L 100.0500, L500.3400, L500.2500 ####[facility] [address] [place], [address] Chloride [Moles/Vol] 101 mmol/L Normal 98-108 [facility] Comment on above: Performed By: #### L 100.0500, L500.3400, L500.2500 ####[facility] [address] [place], [address] CO2 [Moles/Vol] 24.0 mmol/L Normal 21.0-32.0 [facility] Comment on above: Performed By: #### L 100.0500, L500.3400, L500.2500 ####[facility] [address] [place], [address] Creatinine [Mass/Vol] 0.70 mg/dL Normal 0.70-1.20 [facility] Comment on above: Performed By: #### L 100.0500, L500.3400, L500.2500 ####[facility] [address] [place], [address] ECRCL 40.96 ml/min Low 50-250 [facility] Comment on above: Performed By: #### L 100.0500, L500.3400, L500.2500 ####[facility] [address] [place], [address] GAP 10 Normal 5-15 [facility] Comment on above: Performed By: #### L 100.0500, L500.3400, L500.2500 ####[facility] [address] [place], [address] GFR/1.73 sq M.predicted among non-blacks MDRD (S/P/Bld) [Vol rate/Area] 87 mL/min/{1.73_m2} Normal >60 [facility] Comment on above: Result Comment: mL/m in/1.73m2 CKD-EPI Creatinine Equation (2020) Performed By: #### L 100.0500, L500.3400, L500.2500 ####[facility] [address] [place], [address] Glucose [Mass/Vol] 89 mg/dL Normal 70-99 [facility] Comment on above: Performed By: #### L 100.0500, L500.3400, L500.2500 ####[facility] [address] [place], [address] Potassium [Moles/Vol] 4.4 mmol/L Normal 3.3-5.1 [facility] Comment on above: Performed By: #### L 100.0500, L500.3400, L500.2500 ####[facility] [address] [place], [address] Sodium [Moles/Vol] 136 mmol/L Normal 133-145 [facility] Comment on above: Performed By: #### L 100.0500, L500.3400, L500.2500 ####[facility] [address] [place], [address] Urea nitrogen [Mass/Vol] 11 mg/dL Normal 4-19 [facility] Comment on above: Performed By: #### L 100.0500, L500.3400, L500.2500 ####[facility] [address] [place], [address] CBC-Complete Blood Cnt No Di ffon 04-08-2025 Erythrocyte distribution width (RBC) [Ratio] 15.3 % High 11.6-14.6 [facility] Comment on above: Performed By: #### L 100.0500, L500.3400, L500.2500 ####[facility] [address] [place], [address] Hematocrit (Bld) [Volume fraction] 41.8 % Normal 37-47 [facility] Comment on above: Performed By: #### L 100.0500, L500.3400, L500.2500 ####[facility] [address] [place], [address] Hemoglobin (Bld) [Mass/Vol] 14.1 g/dL Normal 12.0-15.0 [facility] Comment on above: Performed By: #### L 100.0500, L500.3400, L500.2500 ####[facility] [address] [place], [address] MCH (RBC) [Entitic mass] 29.4 pg Normal 27.0-32.0 [facility] Comment on above: Performed By: #### L 100.0500, L500.3400, L500.2500 ####[facility] [address] [place], [address] MCHC (RBC) [Mass/Vol] 33.7 g/dL Normal 32-36 [facility] Comment on above: Performed By: #### L 100.0500, L500.3400, L500.2500 ####[facility] [address] [place], [address] MCV (RBC) [Entitic vol] 87.1 fL Normal 81-99 [facility] Comment on above: Performed By: #### L 100.0500, L500.3400, L500.2500 ####[facility] [address] [place], [address] Platelet mean volume (Bld) [Entitic vol] 9.0 fL Normal 6.2-12.0 [facility] Comment on above: Performed By: #### L 100.0500, L500.3400, L500.2500 ####[facility] [address] [place], [address] Platelets (Bld) [#/Vol] 325 10*3/uL Normal 150-450 [facility] Comment on above: Performed By: #### L 100.0500, L500.3400, L500.2500 ####[facility] [address] [place], [address] RBC (Bld) [#/Vol] 4.80 10*6/uL Normal 4.2-5.4 [facility] Comment on above: Performed By: #### L 100.0500, L500.3400, L500.2500 ####[facility] [address] [place], [address] RDW SD 48.8 fl High 35.1-43.9 [facility] Comment on above: Performed By: #### L 100.0500, L500.3400, L500.2500 ####[facility] [address] [place], [address] WBC (Bld) [#/Vol] 8.5 10*3/uL Normal 4.4-11.0 [facility] Comment on above: Performed By: #### L 100.0500, L500.3400, L500.2500 ####[facility] [address] [place], [address] Liver Profileon 04-08-2025 Albumin [Mass/Vol] 3.7 g/dL Normal 3.4-4.8 [facility] Comment on above: Performed By: #### L 100.0500, L500.3400, L500.2500 ####[facility] [address] [place], [address] ALK PHOS 182 U/L High 35-104 [facility] Comment on above: Performed By: #### L 100.0500, L500.3400, L500.2500 ####[facility] [address] [place], [address] ALT [Catalytic activity/Vol] 58 U/L High <=34 [facility] Comment on above: Performed By: #### L 100.0500, L500.3400, L500.2500 ####[facility] [address] [place], [address] AST [Catalytic activity/Vol] 38 U/L High <=31 [facility] Comment on above: Performed By: #### L 100.0500, L500.3400, L500.2500 ####[facility] [address] [place], [address] Bilirubin [Mass/Vol] 0.96 mg/dL Normal 0.00-1.30 [facility] Comment on above: Performed By: #### L 100.0500, L500.3400, L500.2500 ####[facility] [address] [place], [address] Bilirubin.direct [Mass/Vol] 0.55 mg/dL High 0.00-0.30 [facility] Comment on above: Performed By: #### L 100.0500, L500.3400, L500.2500 ####[facility] [address] [place], [address] Globulin (S) [Mass/Vol] 2.9 g/dL Normal 2.2-4.2 [facility] Comment on above: Performed By: #### L 100.0500, L500.3400, L500.2500 ####[facility] [address] [place], [address] T PROT 6.6 g/dL Normal 5.9-8.4 [facility] Comment on above: Performed By: #### L 100.0500, L500.3400, L500.2500 ####[facility] [address] [place], [address] Prothrombin Time w/INRon INR Coag (PPP) [Relative time] 1.8 {INR} Normal [facility] Comment on above: Performed By: #### L 300.3900 ####[facility] [address] [place], [address] PT Coag (PPP) [Time] 21.4 s High 11.7-14.9 [facility] Comment on above: Performed By: #### L 300.3900 ####[facility] [address] [place], [address] Basic Metabolic Profile (BMP )on 04-07-2025 BUN/CRE 18.6 RATIO Normal 10-20 [facility] Comment on above: Order Comment: Commgraciela nts: Fasting Lipid Profile Performed By: #### L 500.4100, L100.0500, L500.3400, L500.2500, L501.9520 ####[facility] [address] [place], [address] Calcium [Mass/Vol] 8.5 mg/dL Normal 7.6-11.0 [facility] Comment on above: Order Comment: Commgraciela nts: Fasting Lipid Profile Performed By: #### L 500.4100, L100.0500, L500.3400, L500.2500, L501.9520 ####[facility] [address] [place], [address] Chloride [Moles/Vol] 99 mmol/L Normal 98-108 [facility] Comment on above: Order Comment: Commgraciela nts: Fasting Lipid Profile Performed By: #### L 500.4100, L100.0500, L500.3400, L500.2500, L501.9520 ####[facility] [address] [place], [address] CO2 [Moles/Vol] 25.1 mmol/L Normal 21.0-32.0 [facility] Comment on above: Order Comment: Comme nts: Fasting Lipid Profile Performed By: #### L 500.4100, L100.0500, L500.3400, L500.2500, L501.9520 ####[facility] [address] [place], [address] Creatinine [Mass/Vol] 0.75 mg/dL Normal 0.70-1.20 [facility] Comment on above: Order Comment: Comme nts: Fasting Lipid Profile Performed By: #### L 500.4100, L100.0500, L500.3400, L500.2500, L501.9520 ####[facility] [address] [place], [address] ECRCL 40.96 ml/min Low 50-250 [facility] Comment on above: Order Comment: Comme nts: Fasting Lipid Profile Performed By: #### L 500.4100, L100.0500, L500.3400, L500.2500, L501.9520 ####[facility] [address] [place], [address] GAP 12 Normal 5-15 [facility] Comment on above: Order Comment: Comme nts: Fasting Lipid Profile Performed By: #### L 500.4100, L100.0500, L500.3400, L500.2500, L501.9520 ####[facility] [address] [place], [address] GFR/1.73 sq M.predicted among non-blacks MDRD (S/P/Bld) [Vol rate/Area] 80 mL/min/{1.73_m2} Normal >60 [facility] Comment on above: Order Comment: Comme nts: Fasting Lipid Profile Result Comment: mL/m in/1.73m2 CKD-EPI Creatinine Equation (2020) Performed By: #### L 500.4100, L100.0500, L500.3400, L500.2500, L501.9520 ####[facility] [address] [place], [address] Glucose [Mass/Vol] 95 mg/dL Normal 70-99 [facility] Comment on above: Order Comment: Comme nts: Fasting Lipid Profile Performed By: #### L 500.4100, L100.0500, L500.3400, L500.2500, L501.9520 ####[facility] [address] [place], [address] Potassium [Moles/Vol] 3.2 mmol/L Low 3.3-5.1 [facility] Comment on above: Order Comment: Comme nts: Fasting Lipid Profile Performed By: #### L 500.4100, L100.0500, L500.3400, L500.2500, L501.9520 ####[facility] [address] [place], [address] Sodium [Moles/Vol] 136 mmol/L Normal 133-145 [facility] Comment on above: Order Comment: Comme nts: Fasting Lipid Profile Performed By: #### L 500.4100, L100.0500, L500.3400, L500.2500, L501.9520 ####[facility] [address] [place], [address] Urea nitrogen [Mass/Vol] 14 mg/dL Normal 4-19 [facility] Comment on above: Order Comment: Comme nts: Fasting Lipid Profile Performed By: #### L 500.4100, L100.0500, L500.3400, L500.2500, L501.9520 ####[facility] [address] [place], [address] CBC-Complete Blood Cnt No Di ffon 04-07-2025 Erythrocyte distribution width (RBC) [Ratio] 15.7 % High 11.6-14.6 [facility] Comment on above: Performed By: #### L 500.4100, L100.0500, L500.3400, L500.2500, L501.9520 ####[facility] [address] [place], [address] Hematocrit (Bld) [Volume fraction] 39.2 % Normal 37-47 [facility] Comment on above: Performed By: #### L 500.4100, L100.0500, L500.3400, L500.2500, L501.9520 ####[facility] [address] [place], [address] Hemoglobin (Bld) [Mass/Vol] 12.7 g/dL Normal 12.0-15.0 [facility] Comment on above: Performed By: #### L 500.4100, L100.0500, L500.3400, L500.2500, L501.9520 ####[facility] [address] [place], [address] MCH (RBC) [Entitic mass] 28.2 pg Normal 27.0-32.0 [facility] Comment on above: Performed By: #### L 500.4100, L100.0500, L500.3400, L500.2500, L501.9520 ####[facility] [address] [place], [address] MCHC (RBC) [Mass/Vol] 32.4 g/dL Normal 32-36 [facility] Comment on above: Performed By: #### L 500.4100, L100.0500, L500.3400, L500.2500, L501.9520 ####[facility] [address] [place], [address] MCV (RBC) [Entitic vol] 87.1 fL Normal 81-99 [facility] Comment on above: Performed By: #### L 500.4100, L100.0500, L500.3400, L500.2500, L501.9520 ####[facility] [address] [place], [address] Platelet mean volume (Bld) [Entitic vol] 9.1 fL Normal 6.2-12.0 [facility] Comment on above: Performed By: #### L 500.4100, L100.0500, L500.3400, L500.2500, L501.9520 ####[facility] [address] [place], [address] Platelets (Bld) [#/Vol] 304 10*3/uL Normal 150-450 [facility] Comment on above: Performed By: #### L 500.4100, L100.0500, L500.3400, L500.2500, L501.9520 ####[facility] [address] [place], [address] RBC (Bld) [#/Vol] 4.50 10*6/uL Normal 4.2-5.4 [facility] Comment on above: Performed By: #### L 500.4100, L100.0500, L500.3400, L500.2500, L501.9520 ####[facility] [address] [place], [address] RDW SD 50.2 fl High 35.1-43.9 [facility] Comment on above: Performed By: #### L 500.4100, L100.0500, L500.3400, L500.2500, L501.9520 ####[facility] [address] [place], [address] WBC (Bld) [#/Vol] 7.6 10*3/uL Normal 4.4-11.0 [facility] Comment on above: Performed By: #### L 500.4100, L100.0500, L500.3400, L500.2500, L501.9520 ####[facility] [address] [place], [address] Consultation - Cardiologyon 04-07-2025 Consultation - Cardiology Normal [facility] Lipid Profileon 04-07-2025 CHOL:HDL 3.10 Normal [facility] Comment on above: Order Comment: Comme nts: Fasting Lipid Profile Performed By: #### L 500.4100, L100.0500, L500.3400, L500.2500, L501.9520 ####[facility] [address] [place], [address] Cholesterol [Mass/Vol] 157 mg/dL Normal <=200 [facility] Comment on above: Order Comment: Comme nts: Fasting Lipid Profile Result Comment: Chol esterol level, Desirable <200 mg/dLBorderline high cholesterol 200-239 mg/dLHigh cholesterol >=240 mg/dLRecommendations of the NCEP Adult Treatment Panel for thefollowing risk-cutoff thresholds for the [place] Americanpulation. Performed By: #### L 500.4100, L100.0500, L500.3400, L500.2500, L501.9520 ####[facility] [address] [place], [address] Cholesterol in HDL [Mass/Vol] 51 mg/dL Normal [facility] Comment on above: Order Comment: Comme nts: Fasting Lipid Profile Result Comment: Audelia onal Cholesterol Education Program (NCEP) guidelines:<40 mg/dL: Low HDL-cholesterol (major risk factor for CHD)>= 60 mg/dL: High HDL-cholesterol (negative risk factor forCHD)HDL-cholesterol is affected by a number of factors, e.g.smoking, exercise, hormones, sex and age. Performed By: #### L 500.4100, L100.0500, L500.3400, L500.2500, L501.9520 ####[facility] [address] [place], [address] Cholesterol in LDL [Mass/Vol] 94 mg/dL Normal [facility] Comment on above: Order Comment: Comme nts: Fasting Lipid Profile Result Comment: Bord ylkiaf=668-251 mg/dL Higher Jdkt=567 mg/dL or greaterSampson Equation 2020 for LDL-C Performed By: #### L 500.4100, L100.0500, L500.3400, L500.2500, L501.9520 ####[facility] [address] [place], [address] Cholesterol in VLDL [Mass/Vol] 12 mg/dL Normal 5-40 [facility] Comment on above: Order Comment: Comme nts: Fasting Lipid Profile Performed By: #### L 500.4100, L100.0500, L500.3400, L500.2500, L501.9520 ####[facility] [address] [place], [address] Triglyceride [Mass/Vol] 61 mg/dL Normal [facility] Comment on above: Order Comment: Comme nts: Fasting Lipid Profile Result Comment: The drugs N-Acetylcysteine and Metamizole may falselydepress this assay.Normal range: <150 mg/dLBorderline High: 150-199 mg/dLHigh: 200-499 mg/dLVery High: >500 mg/dL Performed By: #### L 500.4100, L100.0500, L500.3400, L500.2500, L501.9520 ####[facility] [address] [place], [address] Liver Profileon 04-07-2025 Albumin [Mass/Vol] 3.6 g/dL Normal 3.4-4.8 [facility] Comment on above: Order Comment: Comme nts: Fasting Lipid Profile Performed By: #### L 500.4100, L100.0500, L500.3400, L500.2500, L501.9520 ####[facility] [address] [place], [address] ALK PHOS 175 U/L High 35-104 [facility] Comment on above: Order Comment: Comme nts: Fasting Lipid Profile Performed By: #### L 500.4100, L100.0500, L500.3400, L500.2500, L501.9520 ####[facility] [address] [place], [address] ALT [Catalytic activity/Vol] 72 U/L High <=34 [facility] Comment on above: Order Comment: Comme nts: Fasting Lipid Profile Performed By: #### L 500.4100, L100.0500, L500.3400, L500.2500, L501.9520 ####[facility] [address] [place], [address] AST [Catalytic activity/Vol] 62 U/L High <=31 [facility] Comment on above: Order Comment: Comme nts: Fasting Lipid Profile Performed By: #### L 500.4100, L100.0500, L500.3400, L500.2500, L501.9520 ####[facility] [address] [place], [address] Bilirubin [Mass/Vol] 0.86 mg/dL Normal 0.00-1.30 [facility] Comment on above: Order Comment: Comme nts: Fasting Lipid Profile Performed By: #### L 500.4100, L100.0500, L500.3400, L500.2500, L501.9520 ####[facility] [address] [place], [address] Bilirubin.direct [Mass/Vol] 0.42 mg/dL High 0.00-0.30 [facility] Comment on above: Order Comment: [facility] nts: Fasting Lipid Profile Performed By: #### L 500.4100, L100.0500, L500.3400, L500.2500, L501.9520 ####[facility] [address] [place], [address] Globulin (S) [Mass/Vol] 2.7 g/dL Normal 2.2-4.2 [facility] Comment on above: Order Comment: Comm nts: Fasting Lipid Profile Performed By: #### L 500.4100, L100.0500, L500.3400, L500.2500, L501.9520 ####[facility] [address] [place], [address] T PROT 6.4 g/dL Normal 5.9-8.4 [facility] Comment on above: Order Comment: [facility] nts: Fasting Lipid Profile Performed By: #### L 500.4100, L100.0500, L500.3400, L500.2500, L501.9520 ####[facility] [address] [place], [address] Prothrombin Time w/INRon INR Coag (PPP) [Relative time] 2.0 {INR} Normal [facility] Comment on above: Performed By: #### L 300.3900 ####[facility] [address] [place], [address] PT Coag (PPP) [Time] 22.7 s High 11.7-14.9 [facility] Comment on above: Performed By: #### L 300.3900 ####[facility] [address] [place], [place], [id number] Thyroid Stim Hormone (TSH)on 04-07-2025 TSH 1.120 uIU/mL Normal 0.300-4.200 [facility] Comment on above: Order Comment: Comme nts: Fasting Lipid Profile Performed By: #### L 500.4100, L100.0500, L500.3400, L500.2500, L501.9520 ####[facility] [address] [place], [place], [id number] 12 Lead EKGon 04-06-2025 12 Lead EKG Normal [facility] Abdomen/Pelvis W IV Cont ONL Yon 04-06-2025 Abdomen/Pelvis W IV Cont ONLY Normal [facility] CBC W/Diff, Automatedon Absolute Lymph 1.22 X10 3/uL Normal 0.83-4.51 [facility] Comment on above: Performed By: #### L 501.2450, L501.4021, L503.7505, L501.5200, L100.0100, L500.4050, L501.9520 ####[facility] [address] [place], [address] Absolute Neut 7.9 X10 3/uL High 2.0-7.7 [facility] Comment on above: Performed By: #### L 501.2450, L501.4021, L503.7505, L501.5200, L100.0100, L500.4050, L501.9520 ####[facility] [address] [place], [address] Basophils/100 WBC (Bld) 0.4 % Normal 0-1 [facility] Comment on above: Performed By: #### L 501.2450, L501.4021, L503.7505, L501.5200, L100.0100, L500.4050, L501.9520 ####[facility] [address] [place], [address] Eosinophils/100 WBC (Bld) 0.1 % Normal 0-5 [facility] Comment on above: Performed By: #### L 501.2450, L501.4021, L503.7505, L501.5200, L100.0100, L500.4050, L501.9520 ####[facility] [address] [place], [address] Erythrocyte distribution width (RBC) [Ratio] 15.7 % High 11.6-14.6 [facility] Comment on above: Performed By: #### L 501.2450, L501.4021, L503.7505, L501.5200, L100.0100, L500.4050, L501.9520 ####[facility] [address] [place], [address] Hematocrit (Bld) [Volume fraction] 39.0 % Normal 37-47 [facility] Comment on above: Performed By: #### L 501.2450, L501.4021, L503.7505, L501.5200, L100.0100, L500.4050, L501.9520 ####[facility] [address] [place], [address] Hemoglobin (Bld) [Mass/Vol] 12.9 g/dL Normal 12.0-15.0 [facility] Comment on above: Performed By: #### L 501.2450, L501.4021, L503.7505, L501.5200, L100.0100, L500.4050, L501.9520 ####[facility] [address] [place], [address] IG% 0.600 Normal 0.0-0.9 [facility] Comment on above: Result Comment: IG% - Immature Granulocytes (promyelocytes, myelocytes andmetamyelocytes) > 1% indicates that a LEFT SHIFT is Present. Performed By: #### L 501.2450, L501.4021, L503.7505, L501.5200, L100.0100, L500.4050, L501.9520 ####[facility] [address] [place], [address] Lymphocytes/100 WBC (Bld) 11.9 % Low 19-41 [facility] Comment on above: Performed By: #### L 501.2450, L501.4021, L503.7505, L501.5200, L100.0100, L500.4050, L501.9520 ####[facility] [address] [place], [address] MCH (RBC) [Entitic mass] 28.9 pg Normal 27.0-32.0 [facility] Comment on above: Performed By: #### L 501.2450, L501.4021, L503.7505, L501.5200, L100.0100, L500.4050, L501.9520 ####[facility] [address] [place], [address] MCHC (RBC) [Mass/Vol] 33.1 g/dL Normal 32-36 [facility] Comment on above: Performed By: #### L 501.2450, L501.4021, L503.7505, L501.5200, L100.0100, L500.4050, L501.9520 ####[facility] [address] [place], [address] MCV (RBC) [Entitic vol] 87.2 fL Normal 81-99 [facility] Comment on above: Performed By: #### L 501.2450, L501.4021, L503.7505, L501.5200, L100.0100, L500.4050, L501.9520 ####[facility] [address] [place], [address] Monocytes/100 WBC (Bld) 10.0 % Normal 0-10 [facility] Comment on above: Performed By: #### L 501.2450, L501.4021, L503.7505, L501.5200, L100.0100, L500.4050, L501.9520 ####[facility] [address] [place], [address] Neutrophils/100 WBC (Bld) 77.0 % High 47-70 [facility] Comment on above: Performed By: #### L 501.2450, L501.4021, L503.7505, L501.5200, L100.0100, L500.4050, L501.9520 ####[facility] [address] [place], [address] Nucleated RBC (Bld) [#/Vol] 0 10*3/uL Normal 0-5 [facility] Comment on above: Performed By: #### L 501.2450, L501.4021, L503.7505, L501.5200, L100.0100, L500.4050, L501.9520 ####[facility] [address] [place], [address] Platelet mean volume (Bld) [Entitic vol] 9.6 fL Normal 6.2-12.0 [facility] Comment on above: Performed By: #### L 501.2450, L501.4021, L503.7505, L501.5200, L100.0100, L500.4050, L501.9520 ####[facility] [address] [place], [address] Platelets (Bld) [#/Vol] 319 10*3/uL Normal 150-450 [facility] Comment on above: Performed By: #### L 501.2450, L501.4021, L503.7505, L501.5200, L100.0100, L500.4050, L501.9520 ####[facility] [address] [place], [address] RBC (Bld) [#/Vol] 4.47 10*6/uL Normal 4.2-5.4 [facility] Comment on above: Performed By: #### L 501.2450, L501.4021, L503.7505, L501.5200, L100.0100, L500.4050, L501.9520 ####[facility] [address] [place], [address] RDW SD 50.1 fl High 35.1-43.9 [facility] Comment on above: Performed By: #### L 501.2450, L501.4021, L503.7505, L501.5200, L100.0100, L500.4050, L501.9520 ####[facility] [address] [place], [address] WBC (Bld) [#/Vol] 10.2 10*3/uL Normal 4.4-11.0 [facility] Comment on above: Performed By: #### L 501.2450, L501.4021, L503.7505, L501.5200, L100.0100, L500.4050, L501.9520 ####[facility] [address] [place], [address] CTA Chest W/WO Contraston CTA Chest W/WO Contrast Normal [facility] Comprehensive Metabolic Prof ilon 04-06-2025 Albumin [Mass/Vol] 3.9 g/dL Normal 3.4-4.8 [facility] Comment on above: Performed By: #### L 501.2450, L501.4021, L503.7505, L501.5200, L100.0100, L500.4050, L501.9520 ####[facility] [address] [place], [address] Albumin/Globulin [Mass ratio] 1.5 {ratio} Normal 0.9-2.4 [facility] Comment on above: Performed By: #### L 501.2450, L501.4021, L503.7505, L501.5200, L100.0100, L500.4050, L501.9520 ####[facility] [address] [place], [address] ALK PHOS 196 U/L High 35-104 [facility] Comment on above: Performed By: #### L 501.2450, L501.4021, L503.7505, L501.5200, L100.0100, L500.4050, L501.9520 ####[facility] [address] [place], [address] ALT [Catalytic activity/Vol] 86 U/L High <=34 [facility] Comment on above: Performed By: #### L 501.2450, L501.4021, L503.7505, L501.5200, L100.0100, L500.4050, L501.9520 ####[facility] [address] [place], [address] AST [Catalytic activity/Vol] 106 U/L High <=31 [facility] Comment on above: Performed By: #### L 501.2450, L501.4021, L503.7505, L501.5200, L100.0100, L500.4050, L501.9520 ####[facility] [address] [place], [address] Bilirubin [Mass/Vol] 1.30 mg/dL Normal 0.00-1.30 [facility] Comment on above: Performed By: #### L 501.2450, L501.4021, L503.7505, L501.5200, L100.0100, L500.4050, L501.9520 ####[facility] [address] [place], [address] BUN/CRE 16.6 RATIO Normal 10-20 [facility] Comment on above: Performed By: #### L 501.2450, L501.4021, L503.7505, L501.5200, L100.0100, L500.4050, L501.9520 ####[facility] [address] [place], [address] Calcium [Mass/Vol] 8.8 mg/dL Normal 7.6-11.0 [facility] Comment on above: Performed By: #### L 501.2450, L501.4021, L503.7505, L501.5200, L100.0100, L500.4050, L501.9520 ####[facility] [address] [place], [address] Chloride [Moles/Vol] 102 mmol/L Normal 98-108 [facility] Comment on above: Performed By: #### L 501.2450, L501.4021, L503.7505, L501.5200, L100.0100, L500.4050, L501.9520 ####[facility] [address] [place], [address] CO2 [Moles/Vol] 22.1 mmol/L Normal 21.0-32.0 [facility] Comment on above: Performed By: #### L 501.2450, L501.4021, L503.7505, L501.5200, L100.0100, L500.4050, L501.9520 ####[facility] [address] [place], [address] Creatinine [Mass/Vol] 0.78 mg/dL Normal 0.70-1.20 [facility] Comment on above: Performed By: #### L 501.2450, L501.4021, L503.7505, L501.5200, L100.0100, L500.4050, L501.9520 ####[facility] [address] [place], [address] ECRCL 45.39 ml/min Low 50-250 [facility] Comment on above: Performed By: #### L 501.2450, L501.4021, L503.7505, L501.5200, L100.0100, L500.4050, L501.9520 ####[facility] [address] [place], [address] GAP 11 Normal 5-15 [facility] Comment on above: Performed By: #### L 501.2450, L501.4021, L503.7505, L501.5200, L100.0100, L500.4050, L501.9520 ####[facility] [address] [place], [address] GFR/1.73 sq M.predicted among non-blacks MDRD (S/P/Bld) [Vol rate/Area] 77 mL/min/{1.73_m2} Normal >60 [facility] Comment on above: Result Comment: mL/m in/1.73m2 CKD-EPI Creatinine Equation (2020) Performed By: #### L 501.2450, L501.4021, L503.7505, L501.5200, L100.0100, L500.4050, L501.9520 ####[facility] [address] [place], [address] Globulin (S) [Mass/Vol] 2.6 g/dL Normal 2.2-4.2 [facility] Comment on above: Performed By: #### L 501.2450, L501.4021, L503.7505, L501.5200, L100.0100, L500.4050, L501.9520 ####[facility] [address] [place], [address] Glucose [Mass/Vol] 109 mg/dL High 70-99 [facility] Comment on above: Performed By: #### L 501.2450, L501.4021, L503.7505, L501.5200, L100.0100, L500.4050, L501.9520 ####[facility] [address] [place], [address] Potassium [Moles/Vol] 4.2 mmol/L Normal 3.3-5.1 [facility] Comment on above: Performed By: #### L 501.2450, L501.4021, L503.7505, L501.5200, L100.0100, L500.4050, L501.9520 ####[facility] [address] [place], [address] Sodium [Moles/Vol] 135 mmol/L Normal 133-145 [facility] Comment on above: Performed By: #### L 501.2450, L501.4021, L503.7505, L501.5200, L100.0100, L500.4050, L501.9520 ####[facility] [address] [place], [address] T PROT 6.5 g/dL Normal 5.9-8.4 [facility] Comment on above: Performed By: #### L 501.2450, L501.4021, L503.7505, L501.5200, L100.0100, L500.4050, L501.9520 ####[facility] [address] [place], [address] Urea nitrogen [Mass/Vol] 13 mg/dL Normal 4-19 [facility] Comment on above: Performed By: #### L 501.2450, L501.4021, L503.7505, L501.5200, L100.0100, L500.4050, L501.9520 ####[facility] [address] [place], [address] Emergency Department Summary on 04-06-2025 Emergency Department Summary Normal [facility] H AND P Exam - Hospitaliston 04-06-2025 H&P Exam - Hospitalist Normal [facility] L501.4021on 04-06-2025 Trop T High Sen 9 ng/L Normal <=14 [facility] Comment on above: Performed By: #### L 501.2450, L501.4021, L503.7505, L501.5200, L100.0100, L500.4050, L501.9520 ####[facility] [address] [place], [address] Lipaseon 04-06-2025 Lipase [Catalytic activity/Vol] 30 U/L Normal 13-75 [facility] Comment on above: Result Comment: Ronna box note:LIPASE revised reference range effective 22.New Lipase methodology. Expected to produce lower valuesthan the previous assay method.NEW Reference Range: 13 - 75 U/L Performed By: #### L 501.2450, L501.4021, L503.7505, L501.5200, L100.0100, L500.4050, L501.9520 ####[facility] [address] [place], [address] Magnesiumon 04-06-2025 Magnesium [Mass/Vol] 2.1 mg/dL Normal 1.5-2.2 [facility] Comment on above: Performed By: #### L 501.2450, L501.4021, L503.7505, L501.5200, L100.0100, L500.4050, L501.9520 ####[facility] [address] [place], [address] Pro- Brain NATRIURETIC PEPTI Jaya 04-06-2025 Natriuretic peptide B (Bld) [Mass/Vol] 5089 pg/mL High <=1800 [facility] Comment on above: Result Comment: Hear t Failure Unlikely: < 300 pg/mLHeart Failure Likely< 50 Years: > 450 pg/mL50-75 Years: > 900 pg/mL>75 Years: > 1800 pg/mL Performed By: #### L 501.2450, L501.4021, L503.7505, L501.5200, L100.0100, L500.4050, L501.9520 ####[facility] [address] [place], [address] Prothrombin Time w/INRon INR Coag (PPP) [Relative time] 2.4 {INR} Normal [facility] Comment on above: Performed By: #### L 300.3900 ####[facility] [address] [place], [address] PT Coag (PPP) [Time] 26.8 s High 11.7-14.9 [facility] Comment on above: Performed By: #### L 300.3900 ####[facility] [address] [place], [address] INR Normal [facility] Comment on above: Result Comment: DUPL ICATE Performed By: #### L 300.3900 ####[facility] [address] [place], [address] PROTIME Normal 11.7-14.9 [facility] Comment on above: Result Comment: DUPL ICATE Performed By: #### L 300.3900 ####[facility] [address] [place], [address] Thyroid Stim Hormone (TSH)on 04-06-2025 TSH 0.970 uIU/mL Normal 0.300-4.200 [facility] Comment on above: Performed By: #### L 501.2450, L501.4021, L503.7505, L501.5200, L100.0100, L500.4050, L501.9520 ####[facility] [address] [place], [address] Troponin T HS 2 HRon 025 Trop T High Sen 7 ng/L Normal <=14 [facility] Comment on above: Performed By: #### L 499.0042 ####[facility] [address] [place], [address] Troponin T HS 4 HRon 025 Trop T High Sen 8 ng/L Normal <=14 [facility] Comment on above: Result Comment: Cankranthi escoto via OM: Ordered Performed By: #### L 499.0043 ####[facility] [address] [place], [address] Urinalysis, Completeon 04-06 EPI,SQUAMOUS 0-5 SEEN Normal 5-10 [facility] Comment on above: Order Comment: CLEAN CATCH Performed By: #### L 400.0001 ####[facility] [address] [place], [address] BACTERIA 0 SEEN Normal None Seen [facility] Comment on above: Order Comment: CLEAN CATCH Performed By: #### L 400.0001 ####[facility] [address] [place], [address] Mucus Ql (Urine sed) 0 SEEN Normal [facility] Comment on above: Order Comment: CLEAN CATCH Performed By: #### L 400.0001 ####[facility] [address] [place], [address] RBC 0 SEEN Normal 0-5 [facility] Comment on above: Order Comment: CLEAN CATCH Performed By: #### L 400.0001 ####[facility] [address] [place], [address] WBC 0 SEEN Normal 0-5 [facility] Comment on above: Order Comment: CLEAN CATCH Performed By: #### L 400.0001 ####[facility] [address] [place], [address] Basic Metabolic Profile (BMP )on 03-27-2025 BUN/CRE 18.8 RATIO Normal 10-20 [facility] Comment on above: Performed By: #### L 500.2500 ####[facility] [address] [place], [address] Calcium [Mass/Vol] 8.8 mg/dL Normal 7.6-11.0 [facility] Comment on above: Performed By: #### L 500.2500 ####[facility] [address] [place], [address] Chloride [Moles/Vol] 99 mmol/L Normal 98-108 [facility] Comment on above: Performed By: #### L 500.2500 ####[facility] [address] [place], [address] CO2 [Moles/Vol] 28.3 mmol/L Normal 21.0-32.0 [facility] Comment on above: Performed By: #### L 500.2500 ####[facility] [address] [place], [address] Creatinine [Mass/Vol] 0.89 mg/dL Normal 0.70-1.20 [facility] Comment on above: Performed By: #### L 500.2500 ####[facility] [address] [place], [address] GAP 10 Normal 5-15 [facility] Comment on above: Performed By: #### L 500.2500 ####[facility] [address] [place], [address] GFR/1.73 sq M.predicted among non-blacks MDRD (S/P/Bld) [Vol rate/Area] 66 mL/min/{1.73_m2} Normal >60 [facility] Comment on above: Result Comment: mL/m in/1.73m2 CKD-EPI Creatinine Equation (2020) Performed By: #### L 500.2500 ####[facility] [address] [place], [address] Glucose [Mass/Vol] 125 mg/dL High 70-99 [facility] Comment on above: Performed By: #### L 500.2500 ####[facility] [address] [place], [address] Potassium [Moles/Vol] 4.1 mmol/L Normal 3.3-5.1 [facility] Comment on above: Performed By: #### L 500.2500 ####[facility] [address] [place], [address] Sodium [Moles/Vol] 137 mmol/L Normal 133-145 [facility] Comment on above: Performed By: #### L 500.2500 ####[facility] [address] [place], [address] Urea nitrogen [Mass/Vol] 17 mg/dL Normal 4-19 [facility] Comment on above: Performed By: #### L 500.2500 ####[facility] [address] [place], [address] Anion gap in Serum or Plasma Ordered By: John Last on 03-04-2025 Anion gap [Moles/Vol] 10 mmol/L 5-15 [facility] BUN/creatinine ratioOrdered By: John Last on 03-04-2025 Urea nitrogen/Creatinine [Mass ratio] 14.1 mg/mg 10-20 [facility] Basic Metabolic Profile (BMP )on 03-04-2025 BUN/CRE 14.1 RATIO Normal -20 [facility] Comment on above: Performed By: #### L 503.7505, L500.2500 ####[facility] [address] [place], [address] Calcium [Mass/Vol] 8.8 mg/dL Normal 7.6-11.0 [facility] Comment on above: Performed By: #### L 503.7505, L500.2500 ####[facility] [address] [place], [address] Chloride [Moles/Vol] 99 mmol/L Normal 98-108 [facility] Comment on above: Performed By: #### L 503.7505, L500.2500 ####[facility] [address] [place], [address] CO2 [Moles/Vol] 26.2 mmol/L Normal 21.0-32.0 [facility] Comment on above: Performed By: #### L 503.7505, L500.2500 ####[facility] [address] [place], [address] Creatinine [Mass/Vol] 0.83 mg/dL Normal 0.70-1.20 [facility] Comment on above: Performed By: #### L 503.7505, L500.2500 ####[facility] [address] [place], [address] GAP 10 Normal 5-15 [facility] Comment on above: Performed By: #### L 503.7505, L500.2500 ####[facility] [address] [place], [address] GFR/1.73 sq M.predicted among non-blacks MDRD (S/P/Bld) [Vol rate/Area] 71 mL/min/{1.73_m2} Normal >60 [facility] Comment on above: Result Comment: mL/m in/1.73m2 CKD-EPI Creatinine Equation (2020) Performed By: #### L 503.7505, L500.2500 ####[facility] [address] [place], [address] Glucose [Mass/Vol] 98 mg/dL Normal 70-99 [facility] Comment on above: Performed By: #### L 503.7505, L500.2500 ####[facility] [address] [place], [address] Potassium [Moles/Vol] 3.9 mmol/L Normal 3.3-5.1 [facility] Comment on above: Performed By: #### L 503.7505, L500.2500 ####[facility] [address] [place], [address] Sodium [Moles/Vol] 135 mmol/L Normal 133-145 [facility] [facility] Comment on above: Performed By: #### L 503.7505, L500.2500 ####[facility] [address] [place], [address] Urea nitrogen [Mass/Vol] 12 mg/dL Normal 4-19 [facility] Comment on above: Performed By: #### L 503.7505, L500.2500 ####[facility] [address] [place], [address] Carbon dioxide, total [Moles /volume] in Central venous bloodOrdered By: John Last on 03-04-2025 CO2 [Moles/Vol] 26.2 mmol/L 21.0-32.0 [facility] Cardiology Visit Reporton Cardiology Visit Report Normal [facility] Chest PA and Lateralon 03-04 Chest PA and Lateral Normal [facility] Chloride assayOrdered By: Regis Last on 03-04-2025 Chloride [Moles/Vol] 99 mmol/L 98-108 [facility] Glomerular filtration rate ( GFR) estimation/1.73 sq m using serum, plasma, or whole bOrdered By: John Last on 03-04-2025 GFR/1.73 sq M.predicted among non-blacks MDRD (S/P/Bld) [Vol rate/Area] 71 mL/min/{1.73_m2} >60 [facility] Comment on above: mL/min/1.73m2 CKD-EP I Creatinine Equation (2020) Natriuretic peptide.B prohor frida N-Terminal [Mass/volume] in Serum or PlasmaOrdered By: John Last on 03-04-2025 Natriuretic peptide.B prohormone N-Terminal [Mass/Vol] 2021 pg/mL High <1800 [facility] Comment on above: Heart Failure Unlike ly: < 300 pg/mLHeart Failure Likely< 50 Years: > 450 pg/mL50-75 Years: > 900 pg/mL>75 Years: > 1800 pg/mL Potassium measurement (mass/ volume)Ordered By: John Last on 03-04-2025 Potassium (Unsp spec) [Mass/Vol] 3.9 mmol/L 3.3-5.1 [facility] Pro- Brain NATRIURETIC PEPTI Jaya 03-04-2025 Natriuretic peptide B (Bld) [Mass/Vol] 2021 pg/mL High <=1800 [facility] Comment on above: Result Comment: Hear t Failure Unlikely: < 300 pg/mLHeart Failure Likely< 50 Years: > 450 pg/mL50-75 Years: > 900 pg/mL>75 Years: > 1800 pg/mL Performed By: #### L 503.7505, L500.2500 ####[facility] [address] [place], [address] Serum creatinine measurement (mass/volume)Ordered By: John Last on 03-04-2025 Creatinine [Mass/Vol] 0.83 mg/dL 0.70-1.20 [facility] Serum glucose measurement (m ass/volume)Ordered By: John Last on 03-04-2025 Glucose [Mass/Vol] 98 mg/dL 70-99 [facility] Serum or plasma calcium mahnaz urement (mass/volume)Ordered By: John Last on 03-04-2025 Calcium [Mass/Vol] 8.8 mg/dL 7.6-11.0 [facility] Serum or plasma urea nitroge n measurement (mass/volume)Ordered By: John Last on 03-04-2025 Urea nitrogen [Mass/Vol] 12 mg/dL 4-19 [facility] Sodium levelOrdered By: Hannah Last on 03-04-2025 Sodium [Moles/Vol] 135 mmol/L 133-145 [facility] PT panel Coag (PPP)on 2024 INR Coag (Bld) [Relative time] 4.0 {INR} [facility] Basic Metabolic Profile (BMP )on 01-31-2025 BUN Normal 4- [facility] Comment on above: Result Comment: Canc elled via OM: Order cancelled - Patient discharged Performed By: #### L 100.0100, L500.2500 ####[facility] [address] [place], [address] BUN/CRE Normal 10-20 [facility] Comment on above: Result Comment: Canc elled via OM: Order cancelled - Patient discharged Performed By: #### L 100.0100, L500.2500 ####[facility] [address] [place], [address] Calcium Normal 7.6-11.0 [facility] Comment on above: Result Comment: Canc elled via OM: Order cancelled - Patient discharged Performed By: #### L 100.0100, L500.2500 ####[facility] [address] [place], [address] CL Normal 98-108 [facility] Comment on above: Result Comment: Canc elled via OM: Order cancelled - Patient discharged Performed By: #### L 100.0100, L500.2500 ####[facility] [address] [place], [address] CO2 Normal 21.0-32.0 [facility] Comment on above: Result Comment: Canc elled via OM: Order cancelled - Patient discharged Performed By: #### L 100.0100, L500.2500 ####[facility] [address] [place], [address] CREAT,SERUM Normal 0.70-1.20 [facility] Comment on above: Result Comment: Canc elled via OM: Order cancelled - Patient discharged Performed By: #### L 100.0100, L500.2500 ####[facility] [address] [place], [address] eGFR Normal >60 [facility] Comment on above: Result Comment: Canc elled via OM: Order cancelled - Patient discharged Performed By: #### L 100.0100, L500.2500 ####[facility] [address] [place], [address] GAP Normal 5-15 [facility] Comment on above: Result Comment: Canc elled via OM: Order cancelled - Patient discharged Performed By: #### L 100.0100, L500.2500 ####[facility] [address] [place], [address] GLU Normal 70-99 [facility] Comment on above: Result Comment: Canc elled via OM: Order cancelled - Patient discharged Performed By: #### L 100.0100, L500.2500 ####[facility] [address] [place], [address] Potassium Normal 3.3-5.1 [facility] Comment on above: Result Comment: Canc elled via OM: Order cancelled - Patient discharged Performed By: #### L 100.0100, L500.2500 ####[facility] [address] [place], [address] Basic Metabolic Profile (BMP) Normal 133-145 [facility] Comment on above: Result Comment: Canc elled via OM: Order cancelled - Patient discharged Performed By: #### L 100.0100, L500.2500 ####[facility] [address] [place], [address] CBC W/Diff, Automatedon 08- Absolute Neut Normal 2.0-7.7 [facility] Comment on above: Result Comment: Canc elled via OM: Order cancelled - Patient discharged Performed By: #### L 100.0100, L500.2500 ####[facility] [address] [place], [address] HCT Normal 37-47 [facility] Comment on above: Result Comment: Canc elled via OM: Order cancelled - Patient discharged Performed By: #### L 100.0100, L500.2500 ####[facility] [address] [place], [address] HGB Normal 12.0-15.0 [facility] Comment on above: Result Comment: Canc elled via OM: Order cancelled - Patient discharged Performed By: #### L 100.0100, L500.2500 ####[facility] [address] [place], [address] MCH Normal 27.0-32.0 [facility] Comment on above: Result Comment: Canc elled via OM: Order cancelled - Patient discharged Performed By: #### L 100.0100, L500.2500 ####[facility] [address] [place], [address] MCHC Normal 32-36 [facility] Comment on above: Result Comment: Canc elled via OM: Order cancelled - Patient discharged Performed By: #### L 100.0100, L500.2500 ####[facility] [address] [place], [address] MCV Normal 81-99 [facility] Comment on above: Result Comment: Canc elled via OM: Order cancelled - Patient discharged Performed By: #### L 100.0100, L500.2500 ####[facility] [address] [place], [address] NEUT% Normal 47-70 [facility] Comment on above: Result Comment: Canc elled via OM: Order cancelled - Patient discharged Performed By: #### L 100.0100, L500.2500 ####[facility] [address] [place], [address] PLT Normal 150-450 [facility] Comment on above: Result Comment: Canc elled via OM: Order cancelled - Patient discharged Performed By: #### L 100.0100, L500.2500 ####[facility] [address] [place], [address] RBC Normal 4.2-5.4 [facility] Comment on above: Result Comment: Canc elled via OM: Order cancelled - Patient discharged Performed By: #### L 100.0100, L500.2500 ####[facility] [address] [place], [address] RDW CV Normal 11.6-14.6 [facility] Comment on above: Result Comment: Canc elled via OM: Order cancelled - Patient discharged Performed By: #### L 100.0100, L500.2500 ####[facility] [address] [place], [address] RDW SD Normal 35.1-43.9 [facility] Comment on above: Result Comment: Canc elled via OM: Order cancelled - Patient discharged Performed By: #### L 100.0100, L500.2500 ####[facility] [address] [place], [address] WBC Normal 4.4-11.0 [facility] Comment on above: Result Comment: Canc elled via OM: Order cancelled - Patient discharged Performed By: #### L 100.0100, L500.2500 ####[facility] [address] [place], [address] Basic Metabolic Profile (BMP )on 01-30-2025 BUN Normal 4-19 [facility] Comment on above: Result Comment: Canc elled via OM: Order cancelled - Patient discharged Performed By: #### L 100.0100, L500.2500 ####[facility] [address] [place], [address] BUN/CRE Normal 10-20 [facility] Comment on above: Result Comment: Canc elled via OM: Order cancelled - Patient discharged Performed By: #### L 100.0100, L500.2500 ####[facility] [address] [place], [address] Calcium Normal 7.6-11.0 [facility] Comment on above: Result Comment: Canc elled via OM: Order cancelled - Patient discharged Performed By: #### L 100.0100, L500.2500 ####[facility] [address] [place], [address] CL Normal 98-108 [facility] Comment on above: Result Comment: Canc elled via OM: Order cancelled - Patient discharged Performed By: #### L 100.0100, L500.2500 ####[facility] [address] [place], [address] CO2 Normal 21.0-32.0 [facility] Comment on above: Result Comment: Canc elled via OM: Order cancelled - Patient discharged Performed By: #### L 100.0100, L500.2500 ####[facility] [address] [place], [address] CREAT,SERUM Normal 0.70-1.20 [facility] Comment on above: Result Comment: Canc elled via OM: Order cancelled - Patient discharged Performed By: #### L 100.0100, L500.2500 ####[facility] [address] [place], [address] eGFR Normal >60 [facility] Comment on above: Result Comment: Canc elled via OM: Order cancelled - Patient discharged Performed By: #### L 100.0100, L500.2500 ####[facility] [address] [place], [address] GAP Normal 5-15 [facility] Comment on above: Result Comment: Canc elled via OM: Order cancelled - Patient discharged Performed By: #### L 100.0100, L500.2500 ####[facility] [address] [place], [address] GLU Normal 70-99 [facility] Comment on above: Result Comment: Canc elled via OM: Order cancelled - Patient discharged Performed By: #### L 100.0100, L500.2500 ####[facility] [address] [place], [address] Potassium Normal 3.3-5.1 [facility] Comment on above: Result Comment: Canc elled via OM: Order cancelled - Patient discharged Performed By: #### L 100.0100, L500.2500 ####[facility] [address] [place], [address] Basic Metabolic Profile (BMP) Normal 133-145 [facility] Comment on above: Result Comment: Canc elled via OM: Order cancelled - Patient discharged Performed By: #### L 100.0100, L500.2500 ####[facility] [address] [place], [address] CBC W/Diff, Automatedon 08-2 Absolute Neut Normal 2.0-7.7 [facility] Comment on above: Result Comment: Canc elled via OM: Order cancelled - Patient discharged Performed By: #### L 100.0100, L500.2500 ####[facility] [address] [place], [address] HCT Normal 37-47 [facility] Comment on above: Result Comment: Canc elled via OM: Order cancelled - Patient discharged Performed By: #### L 100.0100, L500.2500 ####[facility] [address] [place], [address] HGB Normal 12.0-15.0 [facility] Comment on above: Result Comment: Canc elled via OM: Order cancelled - Patient discharged Performed By: #### L 100.0100, L500.2500 ####[facility] [address] [place], [address] MCH Normal 27.0-32.0 [facility] Comment on above: Result Comment: Canc elled via OM: Order cancelled - Patient discharged Performed By: #### L 100.0100, L500.2500 ####[facility] [address] [place], [address] MCHC Normal 32-36 [facility] Comment on above: Result Comment: Canc elled via OM: Order cancelled - Patient discharged Performed By: #### L 100.0100, L500.2500 ####[facility] [address] [place], [address] MCV Normal 81-99 [facility] Comment on above: Result Comment: Canc elled via OM: Order cancelled - Patient discharged Performed By: #### L 100.0100, L500.2500 ####[facility] [address] [place], [address] NEUT% Normal 47-70 [facility] Comment on above: Result Comment: Canc elled via OM: Order cancelled - Patient discharged Performed By: #### L 100.0100, L500.2500 ####[facility] [address] [place], [address] PLT Normal 150-450 [facility] Comment on above: Result Comment: Canc elled via OM: Order cancelled - Patient discharged Performed By: #### L 100.0100, L500.2500 ####[facility] [address] [place], [address] RBC Normal 4.2-5.4 [facility] Comment on above: Result Comment: Canc elled via OM: Order cancelled - Patient discharged Performed By: #### L 100.0100, L500.2500 ####[facility] [address] [place], [address] RDW CV Normal 11.6-14.6 [facility] Comment on above: Result Comment: Canc elled via OM: Order cancelled - Patient discharged Performed By: #### L 100.0100, L500.2500 ####[facility] [address] [place], [address] RDW SD Normal 35.1-43.9 [facility] Comment on above: Result Comment: Canc elled via OM: Order cancelled - Patient discharged Performed By: #### L 100.0100, L500.2500 ####[facility] [address] [place], [address] WBC Normal 4.4-11.0 [facility] Comment on above: Result Comment: Canc elled via OM: Order cancelled - Patient discharged Performed By: #### L 100.0100, L500.2500 ####[facility] [address] [place], [address] Basic Metabolic Profile (BMP )on 01-29-2025 BUN Normal 4-19 [facility] Comment on above: Result Comment: Canc elled via OM: Order cancelled - Patient discharged Performed By: #### L 100.0100, L500.2500 ####[facility] [address] [place], [address] BUN/CRE Normal 10-20 [facility] Comment on above: Result Comment: Canc elled via OM: Order cancelled - Patient discharged Performed By: #### L 100.0100, L500.2500 ####[facility] [address] [place], [address] Calcium Normal 7.6-11.0 [facility] Comment on above: Result Comment: Canc elled via OM: Order cancelled - Patient discharged Performed By: #### L 100.0100, L500.2500 ####[facility] [address] [place], [address] CL Normal 98-108 [facility] Comment on above: Result Comment: Canc elled via OM: Order cancelled - Patient discharged Performed By: #### L 100.0100, L500.2500 ####[facility] [address] [place], [address] CO2 Normal 21.0-32.0 [facility] Comment on above: Result Comment: Canc elled via OM: Order cancelled - Patient discharged Performed By: #### L 100.0100, L500.2500 ####[facility] [address] [place], [address] CREAT,SERUM Normal 0.70-1.20 [facility] Comment on above: Result Comment: Canc elled via OM: Order cancelled - Patient discharged Performed By: #### L 100.0100, L500.2500 ####[facility] [address] [place], [address] eGFR Normal >60 [facility] Comment on above: Result Comment: Canc elled via OM: Order cancelled - Patient discharged Performed By: #### L 100.0100, L500.2500 ####[facility] [address] [place], [address] GAP Normal 5-15 [facility] Comment on above: Result Comment: Canc elled via OM: Order cancelled - Patient discharged Performed By: #### L 100.0100, L500.2500 ####[facility] [address] [place], [address] GLU Normal 70-99 [facility] Comment on above: Result Comment: Canc elled via OM: Order cancelled - Patient discharged Performed By: #### L 100.0100, L500.2500 ####[facility] [address] [place], [address] Potassium Normal 3.3-5.1 [facility] Comment on above: Result Comment: Canc elled via OM: Order cancelled - Patient discharged Performed By: #### L 100.0100, L500.2500 ####[facility] [address] [place], [address] Basic Metabolic Profile (BMP) Normal 133-145 [facility] Comment on above: Result Comment: Canc elled via OM: Order cancelled - Patient discharged Performed By: #### L 100.0100, L500.2500 ####[facility] [address] [place], [address] CBC W/Diff, Automatedon 08-2 Absolute Neut Normal 2.0-7.7 [facility] Comment on above: Result Comment: Canc elled via OM: Order cancelled - Patient discharged Performed By: #### L 100.0100, L500.2500 ####[facility] [address] [place], [address] HCT Normal 37-47 [facility] Comment on above: Result Comment: Canc elled via OM: Order cancelled - Patient discharged Performed By: #### L 100.0100, L500.2500 ####[facility] [address] [place], [address] HGB Normal 12.0-15.0 [facility] Comment on above: Result Comment: Canc elled via OM: Order cancelled - Patient discharged Performed By: #### L 100.0100, L500.2500 ####[facility] [address] [place], [address] MCH Normal 27.0-32.0 [facility] Comment on above: Result Comment: Canc elled via OM: Order cancelled - Patient discharged Performed By: #### L 100.0100, L500.2500 ####[facility] [address] [place], [address] MCHC Normal 32-36 [facility] Comment on above: Result Comment: Canc elled via OM: Order cancelled - Patient discharged Performed By: #### L 100.0100, L500.2500 ####[facility] [address] [place], [address] MCV Normal 81-99 [facility] Comment on above: Result Comment: Canc elled via OM: Order cancelled - Patient discharged Performed By: #### L 100.0100, L500.2500 ####[facility] [address] [place], [address] NEUT% Normal 47-70 [facility] Comment on above: Result Comment: Canc elled via OM: Order cancelled - Patient discharged Performed By: #### L 100.0100, L500.2500 ####[facility] [address] [place], [address] PLT Normal 150-450 [facility] Comment on above: Result Comment: Canc elled via OM: Order cancelled - Patient discharged Performed By: #### L 100.0100, L500.2500 ####[facility] [address] [place], [address] RBC Normal 4.2-5.4 [facility] Comment on above: Result Comment: Canc elled via OM: Order cancelled - Patient discharged Performed By: #### L 100.0100, L500.2500 ####[facility] [address] [place], [address] RDW CV Normal 11.6-14.6 [facility] Comment on above: Result Comment: Canc elled via OM: Order cancelled - Patient discharged Performed By: #### L 100.0100, L500.2500 ####[facility] [address] [place], [address] RDW SD Normal 35.1-43.9 [facility] Comment on above: Result Comment: Canc elled via OM: Order cancelled - Patient discharged Performed By: #### L 100.0100, L500.2500 ####[facility] [address] [place], [address] WBC Normal 4.4-11.0 [facility] Comment on above: Result Comment: Canc elled via OM: Order cancelled - Patient discharged Performed By: #### L 100.0100, L500.2500 ####[facility] [address] [place], [address] Basic Metabolic Profile (BMP )on 01-28-2025 BUN Normal 4-19 [facility] Comment on above: Result Comment: Canc elled via OM: Order cancelled - Patient discharged Performed By: #### L 500.2500, L100.0100 ####[facility] [address] [place], [address] BUN/CRE Normal 10-20 [facility] Comment on above: Result Comment: Canc elled via OM: Order cancelled - Patient discharged Performed By: #### L 500.2500, L100.0100 ####[facility] [address] [place], [address] Calcium Normal 7.6-11.0 [facility] Comment on above: Result Comment: Canc elled via OM: Order cancelled - Patient discharged Performed By: #### L 500.2500, L100.0100 ####[facility] [address] [place], [address] CL Normal 98-108 [facility] Comment on above: Result Comment: Canc elled via OM: Order cancelled - Patient discharged Performed By: #### L 500.2500, L100.0100 ####[facility] [address] [place], [address] CO2 Normal 21.0-32.0 [facility] Comment on above: Result Comment: Canc elled via OM: Order cancelled - Patient discharged Performed By: #### L 500.2500, L100.0100 ####[facility] [address] [place], [address] CREAT,SERUM Normal 0.70-1.20 [facility] Comment on above: Result Comment: Canc elled via OM: Order cancelled - Patient discharged Performed By: #### L 500.2500, L100.0100 ####[facility] [address] [place], [address] eGFR Normal >60 [facility] Comment on above: Result Comment: Canc elled via OM: Order cancelled - Patient discharged Performed By: #### L 500.2500, L100.0100 ####[facility] [address] [place], [address] GAP Normal 5-15 [facility] Comment on above: Result Comment: Canc elled via OM: Order cancelled - Patient discharged Performed By: #### L 500.2500, L100.0100 ####[facility] [address] [place], [address] GLU Normal 70-99 [facility] Comment on above: Result Comment: Canc elled via OM: Order cancelled - Patient discharged Performed By: #### L 500.2500, L100.0100 ####[facility] [address] [place], [address] Potassium Normal 3.3-5.1 [facility] Comment on above: Result Comment: Canc elled via OM: Order cancelled - Patient discharged Performed By: #### L 500.2500, L100.0100 ####[facility] [address] [place], [address] Basic Metabolic Profile (BMP) Normal 133-145 [facility] Comment on above: Result Comment: Canc elled via OM: Order cancelled - Patient discharged Performed By: #### L 500.2500, L100.0100 ####[facility] [address] [place], [address] CBC W/Diff, Automatedon 08-2 Absolute Neut Normal 2.0-7.7 [facility] Comment on above: Result Comment: Canc elled via OM: Order cancelled - Patient discharged Performed By: #### L 500.2500, L100.0100 ####[facility] [address] [place], [address] HCT Normal 37-47 [facility] Comment on above: Result Comment: Canc elled via OM: Order cancelled - Patient discharged Performed By: #### L 500.2500, L100.0100 ####[facility] [address] [place], [address] HGB Normal 12.0-15.0 [facility] Comment on above: Result Comment: Canc elled via OM: Order cancelled - Patient discharged Performed By: #### L 500.2500, L100.0100 ####[facility] [address] [place], [address] MCH Normal 27.0-32.0 [facility] Comment on above: Result Comment: Canc elled via OM: Order cancelled - Patient discharged Performed By: #### L 500.2500, L100.0100 ####[facility] [address] [place], [address] MCHC Normal 32-36 [facility] Comment on above: Result Comment: Canc elled via OM: Order cancelled - Patient discharged Performed By: #### L 500.2500, L100.0100 ####[facility] [address] [place], [address] MCV Normal 81-99 [facility] Comment on above: Result Comment: Canc elled via OM: Order cancelled - Patient discharged Performed By: #### L 500.2500, L100.0100 ####[facility] [address] [place], [address] NEUT% Normal 47-70 [facility] Comment on above: Result Comment: Canc elled via OM: Order cancelled - Patient discharged Performed By: #### L 500.2500, L100.0100 ####[facility] [address] [place], [address] PLT Normal 150-450 [facility] Comment on above: Result Comment: Canc elled via OM: Order cancelled - Patient discharged Performed By: #### L 500.2500, L100.0100 ####[facility] [address] [place], [address] RBC Normal 4.2-5.4 [facility] Comment on above: Result Comment: Canc elled via OM: Order cancelled - Patient discharged Performed By: #### L 500.2500, L100.0100 ####[facility] [address] [place], [address] RDW CV Normal 11.6-14.6 [facility] Comment on above: Result Comment: Canc elled via OM: Order cancelled - Patient discharged Performed By: #### L 500.2500, L100.0100 ####[facility] [address] [place], [address] RDW SD Normal 35.1-43.9 [facility] Comment on above: Result Comment: Canc elled via OM: Order cancelled - Patient discharged Performed By: #### L 500.2500, L100.0100 ####[facility] [address] [place], [address] WBC Normal 4.4-11.0 [facility] Comment on above: Result Comment: Canc elled via OM: Order cancelled - Patient discharged Performed By: #### L 500.2500, L100.0100 ####[facility] [address] [place], [address] Basic Metabolic Profile (BMP )on 01-27-2025 BUN Normal 4-19 [facility] Comment on above: Result Comment: Canc elled via OM: Order cancelled - Patient discharged Performed By: #### L 100.0100, L500.2500 ####[facility] [address] [place], [address] BUN/CRE Normal 10-20 [facility] Comment on above: Result Comment: Canc elled via OM: Order cancelled - Patient discharged Performed By: #### L 100.0100, L500.2500 ####[facility] [address] [place], [address] Calcium Normal 7.6-11.0 [facility] Comment on above: Result Comment: Canc elled via OM: Order cancelled - Patient discharged Performed By: #### L 100.0100, L500.2500 ####[facility] [address] [place], [address] CL Normal 98-108 [facility] Comment on above: Result Comment: Canc elled via OM: Order cancelled - Patient discharged Performed By: #### L 100.0100, L500.2500 ####[facility] [address] [place], [address] CO2 Normal 21.0-32.0 [facility] Comment on above: Result Comment: Canc elled via OM: Order cancelled - Patient discharged Performed By: #### L 100.0100, L500.2500 ####[facility] [address] [place], [address] CREAT,SERUM Normal 0.70-1.20 [facility] Comment on above: Result Comment: Canc elled via OM: Order cancelled - Patient discharged Performed By: #### L 100.0100, L500.2500 ####[facility] [address] [place], [address] eGFR Normal >60 [facility] Comment on above: Result Comment: Canc elled via OM: Order cancelled - Patient discharged Performed By: #### L 100.0100, L500.2500 ####[facility] [address] [place], [address] GAP Normal 5-15 [facility] Comment on above: Result Comment: Canc elled via OM: Order cancelled - Patient discharged Performed By: #### L 100.0100, L500.2500 ####[facility] [address] [place], [address] GLU Normal 70-99 [facility] Comment on above: Result Comment: Canc elled via OM: Order cancelled - Patient discharged Performed By: #### L 100.0100, L500.2500 ####[facility] [address] [place], [address] Potassium Normal 3.3-5.1 [facility] Comment on above: Result Comment: Canc elled via OM: Order cancelled - Patient discharged Performed By: #### L 100.0100, L500.2500 ####[facility] [address] [place], [address] Basic Metabolic Profile (BMP) Normal 133-145 [facility] Comment on above: Result Comment: Canc elled via OM: Order cancelled - Patient discharged Performed By: #### L 100.0100, L500.2500 ####[facility] [address] [place], [address] CBC W/Diff, Automatedon 08-2 Absolute Neut Normal 2.0-7.7 [facility] Comment on above: Result Comment: Canc elled via OM: Order cancelled - Patient discharged Performed By: #### L 100.0100, L500.2500 ####[facility] [address] [place], [address] HCT Normal 37-47 [facility] Comment on above: Result Comment: Canc elled via OM: Order cancelled - Patient discharged Performed By: #### L 100.0100, L500.2500 ####[facility] [address] [place], [address] HGB Normal 12.0-15.0 [facility] Comment on above: Result Comment: Canc elled via OM: Order cancelled - Patient discharged Performed By: #### L 100.0100, L500.2500 ####[facility] [address] [place], [address] MCH Normal 27.0-32.0 [facility] Comment on above: Result Comment: Canc elled via OM: Order cancelled - Patient discharged Performed By: #### L 100.0100, L500.2500 ####[facility] [address] [place], [address] MCHC Normal 32-36 [facility] Comment on above: Result Comment: Canc elled via OM: Order cancelled - Patient discharged Performed By: #### L 100.0100, L500.2500 ####[facility] [address] [place], [address] MCV Normal 81-99 [facility] Comment on above: Result Comment: Canc elled via OM: Order cancelled - Patient discharged Performed By: #### L 100.0100, L500.2500 ####[facility] [address] [place], [address] NEUT% Normal 47-70 [facility] Comment on above: Result Comment: Canc elled via OM: Order cancelled - Patient discharged Performed By: #### L 100.0100, L500.2500 ####[facility] [address] [place], [address] PLT Normal 150-450 [facility] Comment on above: Result Comment: Canc elled via OM: Order cancelled - Patient discharged Performed By: #### L 100.0100, L500.2500 ####[facility] [address] [place], [address] RBC Normal 4.2-5.4 [facility] Comment on above: Result Comment: Canc elled via OM: Order cancelled - Patient discharged Performed By: #### L 100.0100, L500.2500 ####[facility] [address] [place], [address] RDW CV Normal 11.6-14.6 [facility] Comment on above: Result Comment: Canc elled via OM: Order cancelled - Patient discharged Performed By: #### L 100.0100, L500.2500 ####[facility] [address] [place], [address] RDW SD Normal 35.1-43.9 [facility] Comment on above: Result Comment: Canc elled via OM: Order cancelled - Patient discharged Performed By: #### L 100.0100, L500.2500 ####[facility] [address] [place], [address] WBC Normal 4.4-11.0 [facility] Comment on above: Result Comment: Canc elled via OM: Order cancelled - Patient discharged Performed By: #### L 100.0100, L500.2500 ####[facility] [address] [place], [address] Basic Metabolic Profile (BMP )on 01-26-2025 BUN Normal 4-19 [facility] Comment on above: Result Comment: Canc elled via OM: Order cancelled - Patient discharged Performed By: #### L 500.2500, L100.0100 ####[facility] [address] [place], [address] BUN/CRE Normal 10-20 [facility] Comment on above: Result Comment: Canc elled via OM: Order cancelled - Patient discharged Performed By: #### L 500.2500, L100.0100 ####[facility] [address] [place], [address] Calcium Normal 7.6-11.0 [facility] Comment on above: Result Comment: Canc elled via OM: Order cancelled - Patient discharged Performed By: #### L 500.2500, L100.0100 ####[facility] [address] [place], [address] CL Normal 98-108 [facility] Comment on above: Result Comment: Canc elled via OM: Order cancelled - Patient discharged Performed By: #### L 500.2500, L100.0100 ####[facility] [address] [place], [address] CO2 Normal 21.0-32.0 [facility] Comment on above: Result Comment: Canc elled via OM: Order cancelled - Patient discharged Performed By: #### L 500.2500, L100.0100 ####[facility] [address] [place], [address] CREAT,SERUM Normal 0.70-1.20 [facility] Comment on above: Result Comment: Canc elled via OM: Order cancelled - Patient discharged Performed By: #### L 500.2500, L100.0100 ####[facility] [address] [place], [address] eGFR Normal >60 [facility] Comment on above: Result Comment: Canc elled via OM: Order cancelled - Patient discharged Performed By: #### L 500.2500, L100.0100 ####[facility] [address] [place], [address] GAP Normal 5-15 [facility] Comment on above: Result Comment: Canc elled via OM: Order cancelled - Patient discharged Performed By: #### L 500.2500, L100.0100 ####[facility] [address] [place], [address] GLU Normal 70-99 [facility] Comment on above: Result Comment: Canc elled via OM: Order cancelled - Patient discharged Performed By: #### L 500.2500, L100.0100 ####[facility] [address] [place], [address] Potassium Normal 3.3-5.1 [facility] Comment on above: Result Comment: Canc elled via OM: Order cancelled - Patient discharged Performed By: #### L 500.2500, L100.0100 ####[facility] [address] [place], [address] Basic Metabolic Profile (BMP) Normal 133-145 [facility] Comment on above: Result Comment: Canc elled via OM: Order cancelled - Patient discharged Performed By: #### L 500.2500, L100.0100 ####[facility] [address] [place], [address] CBC W/Diff, Automatedon 08-2 Absolute Neut Normal 2.0-7.7 [facility] Comment on above: Result Comment: Canc elled via OM: Order cancelled - Patient discharged Performed By: #### L 500.2500, L100.0100 ####[facility] [address] [place], [address] HCT Normal 37-47 [facility] Comment on above: Result Comment: Canc elled via OM: Order cancelled - Patient discharged Performed By: #### L 500.2500, L100.0100 ####[facility] [address] [place], [address] HGB Normal 12.0-15.0 [facility] Comment on above: Result Comment: Canc elled via OM: Order cancelled - Patient discharged Performed By: #### L 500.2500, L100.0100 ####[facility] [address] [place], [address] MCH Normal 27.0-32.0 [facility] Comment on above: Result Comment: Canc elled via OM: Order cancelled - Patient discharged Performed By: #### L 500.2500, L100.0100 ####[facility] [address] [place], [address] MCHC Normal 32-36 [facility] Comment on above: Result Comment: Canc elled via OM: Order cancelled - Patient discharged Performed By: #### L 500.2500, L100.0100 ####[facility] [address] [place], [address] MCV Normal 81-99 [facility] Comment on above: Result Comment: Canc elled via OM: Order cancelled - Patient discharged Performed By: #### L 500.2500, L100.0100 ####[facility] [address] [place], [address] NEUT% Normal 47-70 [facility] Comment on above: Result Comment: Canc elled via OM: Order cancelled - Patient discharged Performed By: #### L 500.2500, L100.0100 ####[facility] [address] [place], [address] PLT Normal 150-450 [facility] Comment on above: Result Comment: Canc elled via OM: Order cancelled - Patient discharged Performed By: #### L 500.2500, L100.0100 ####[facility] [address] [place], [address] RBC Normal 4.2-5.4 [facility] Comment on above: Result Comment: Canc elled via OM: Order cancelled - Patient discharged Performed By: #### L 500.2500, L100.0100 ####[facility] [address] [place], [address] RDW CV Normal 11.6-14.6 [facility] Comment on above: Result Comment: Canc elled via OM: Order cancelled - Patient discharged Performed By: #### L 500.2500, L100.0100 ####[facility] [address] [place], [address] RDW SD Normal 35.1-43.9 [facility] Comment on above: Result Comment: Canc elled via OM: Order cancelled - Patient discharged Performed By: #### L 500.2500, L100.0100 ####[facility] [address] [place], [address] WBC Normal 4.4-11.0 [facility] Comment on above: Result Comment: Canc elled via OM: Order cancelled - Patient discharged Performed By: #### L 500.2500, L100.0100 ####[facility] [address] [place], [address] Absolute lymphocyte countOrd ered By: Christine Borges on 01-25-2025 Lymphocytes Auto (Unsp spec) [#/Vol] 0.86 10*3/uL 0.83-4.51 [facility] Absolute neutrophil countOrd ered By: Christine Borges on 01-25-2025 Neutrophils (Bld) [#/Vol] 14.8 10*3/uL High 2.0-7.7 [facility] Anion gap in Serum or Plasma Ordered By: Christine Borges on 01-25-2025 Anion gap [Moles/Vol] 14 mmol/L 5-15 [facility] Automated lymphocyte count a s percentage of total leukocytesOrdered By: Christine Borges on 01-25-2025 Lymphocytes/100 WBC Auto (Unsp spec) 5.2 % Low 19-41 [facility] BUN/creatinine ratioOrdered By: Christine Borges on 01-25-2025 Urea nitrogen/Creatinine [Mass ratio] 32.2 mg/mg High - [facility] Basic Metabolic Profile (BMP )on 01-25-2025 BUN/CRE 32.2 RATIO High - [facility] Comment on above: Performed By: #### L 100.0100, L500.2500 ####[facility] [address] [place], [address] Calcium [Mass/Vol] 8.8 mg/dL Normal 7.6-11.0 [facility] Comment on above: Performed By: #### L 100.0100, L500.2500 ####[facility] [address] [place], [address] Chloride [Moles/Vol] 97 mmol/L Low 98-108 [facility] Comment on above: Performed By: #### L 100.0100, L500.2500 ####[facility] [address] [place], [address] CO2 [Moles/Vol] 27.4 mmol/L Normal 21.0-32.0 [facility] Comment on above: Performed By: #### L 100.0100, L500.2500 ####[facility] [address] [place], [address] Creatinine [Mass/Vol] 0.84 mg/dL Normal 0.70-1.20 [facility] Comment on above: Performed By: #### L 100.0100, L500.2500 ####[facility] [address] [place], [address] ECRCL 39.01 ml/min Low 50-250 [facility] Comment on above: Performed By: #### L 100.0100, L500.2500 ####[facility] [address] [place], [address] GAP 14 Normal 5-15 [facility] Comment on above: Performed By: #### L 100.0100, L500.2500 ####[facility] [address] [place], [address] GFR/1.73 sq M.predicted among non-blacks MDRD (S/P/Bld) [Vol rate/Area] 71 mL/min/{1.73_m2} Normal >60 [facility] Comment on above: Result Comment: mL/m in/1.73m2 CKD-EPI Creatinine Equation (2020) Performed By: #### L 100.0100, L500.2500 ####[facility] [address] [place], [address] Glucose [Mass/Vol] 148 mg/dL High 70-99 [facility] Comment on above: Performed By: #### L 100.0100, L500.2500 ####[facility] [address] [place], [address] Potassium [Moles/Vol] 4.1 mmol/L Normal 3.3-5.1 [facility] Comment on above: Performed By: #### L 100.0100, L500.2500 ####[facility] [address] [place], [address] Sodium [Moles/Vol] 138 mmol/L Normal 133-145 [facility] Comment on above: Performed By: #### L 100.0100, L500.2500 ####[facility] [address] [place], [address] Urea nitrogen [Mass/Vol] 27 mg/dL High 4-19 [facility] Comment on above: Performed By: #### L 100.0100, L500.2500 ####[facility] [address] [place], [address] Basophil percentageOrdered B y: Christine Borges on 01-25-2025 Basophils/100 WBC (Bld) 0.1 % 0-1 [facility] CBC W/Diff, Automatedon 08-2 -2024 Absolute Lymph 0.86 X10 3/uL Normal 0.83-4.51 [facility] Comment on above: Performed By: #### L 100.0100, L500.2500 ####[facility] [address] [place], [address] Absolute Neut 14.8 X10 3/uL High 2.0-7.7 [facility] Comment on above: Performed By: #### L 100.0100, L500.2500 ####[facility] [address] [place], [address] Basophils/100 WBC (Bld) 0.1 % Normal 0-1 [facility] Comment on above: Performed By: #### L 100.0100, L500.2500 ####[facility] [address] [place], [address] Eosinophils/100 WBC (Bld) 0.0 % Normal 0-5 [facility] Comment on above: Performed By: #### L 100.0100, L500.2500 ####[facility] [address] [place], [address] Erythrocyte distribution width (RBC) [Ratio] 14.7 % High 11.6-14.6 [facility] Comment on above: Performed By: #### L 100.0100, L500.2500 ####[facility] [address] [place], [address] Hematocrit (Bld) [Volume fraction] 46.3 % Normal 37-47 [facility] Comment on above: Performed By: #### L 100.0100, L500.2500 ####[facility] [address] [place], [address] Hemoglobin (Bld) [Mass/Vol] 15.6 g/dL High 12.0-15.0 [facility] Comment on above: Performed By: #### L 100.0100, L500.2500 ####[facility] [address] [place], [address] IG% 0.800 Normal 0.0-0.9 [facility] Comment on above: Result Comment: IG% - Immature Granulocytes (promyelocytes, myelocytes andmetamyelocytes) > 1% indicates that a LEFT SHIFT is Present. Performed By: #### L 100.0100, L500.2500 ####[facility] [address] [place], [address] Lymphocytes/100 WBC (Bld) 5.2 % Low 19-41 [facility] Comment on above: Performed By: #### L 100.0100, L500.2500 ####[facility] [address] [place], [address] MCH (RBC) [Entitic mass] 28.8 pg Normal 27.0-32.0 [facility] Comment on above: Performed By: #### L 100.0100, L500.2500 ####[facility] [address] [place], [address] MCHC (RBC) [Mass/Vol] 33.7 g/dL Normal 32-36 [facility] Comment on above: Performed By: #### L 100.0100, L500.2500 ####[facility] [address] [place], [address] MCV (RBC) [Entitic vol] 85.6 fL Normal 81-99 [facility] Comment on above: Performed By: #### L 100.0100, L500.2500 ####[facility] [address] [place], [address] Monocytes/100 WBC (Bld) 4.5 % Normal 0-10 [facility] Comment on above: Performed By: #### L 100.0100, L500.2500 ####[facility] [address] [place], [address] Neutrophils/100 WBC (Bld) 89.4 % High 47-70 [facility] Comment on above: Performed By: #### L 100.0100, L500.2500 ####[facility] [address] [place], [address] Nucleated RBC (Bld) [#/Vol] 0 10*3/uL Normal 0-5 [facility] Comment on above: Performed By: #### L 100.0100, L500.2500 ####[facility] [address] [place], [address] Platelet mean volume (Bld) [Entitic vol] 8.7 fL Normal 6.2-12.0 [facility] Comment on above: Performed By: #### L 100.0100, L500.2500 ####[facility] [address] [place], [address] Platelets (Bld) [#/Vol] 383 10*3/uL Normal 150-450 [facility] Comment on above: Performed By: #### L 100.0100, L500.2500 ####[facility] [address] [place], [address] RBC (Bld) [#/Vol] 5.41 10*6/uL High 4.2-5.4 [facility] Comment on above: Performed By: #### L 100.0100, L500.2500 ####[facility] [address] [place], [address] RDW SD 46.2 fl High 35.1-43.9 [facility] Comment on above: Performed By: #### L 100.0100, L500.2500 ####[facility] [address] [place], [address] WBC (Bld) [#/Vol] 16.5 10*3/uL High 4.4-11.0 [facility] Comment on above: Performed By: #### L 100.0100, L500.2500 ####[facility] [address] [place], [place], [id number] Carbon dioxide, total [Moles /volume] in Central venous bloodOrdered By: Christine Borges on 01-25-2025 CO2 [Moles/Vol] 27.4 mmol/L 21.0-32.0 [facility] Chloride assayOrdered By: Na na Katerina on 01-25-2025 Chloride [Moles/Vol] 97 mmol/L Low 98-108 [facility] Discharge Instructionon 01-04 Discharge Instruction Normal [facility] Eosinophil percentageOrdered By: Christine Borges on 01-25-2025 Eosinophils/100 WBC (Bld) 0.0 % 0-5 [facility] Erythrocyte distribution wid th ratioOrdered By: Christine Borges on 01-25-2025 Erythrocyte distribution width (RBC) [Ratio] 14.7 % High 11.6-14.6 [facility] Erythrocyte distribution wid th standard deviationOrdered By: Christine Borges on 01-25-2025 Erythrocyte distribution width (RBC) [Ratio] 46.2 fl High 35.1-43.9 [facility] Glomerular filtration rate ( GFR) estimation/1.73 sq m using serum, plasma, or whole bOrdered By: Christine Borges on 01-25-2025 GFR/1.73 sq M.predicted among non-blacks MDRD (S/P/Bld) [Vol rate/Area] 71 mL/min/{1.73_m2} >60 [facility] Comment on above: mL/min/1.73m2 CKD-EP I Creatinine Equation (2020) Hematocrit Auto (Bld) [Volum e fraction]Ordered By: Christine Borges on 01-25-2025 Hematocrit (Bld) [Volume fraction] 46.3 % 37-47 [facility] Hemoglobin measurementOrdere d By: Christine Borges on 01-25-2025 Hemoglobin (Bld) [Mass/Vol] 15.6 g/dL High 12.0-15.0 [facility] Immature granulocytes/100 WB C Auto (Bld)Ordered By: Christine Borges on 01-25-2025 Immature granulocytes/100 WBC (Bld) 0.800 % 0.0-0.9 [facility] Comment on above: IG% - Immature Granu locytes (promyelocytes, myelocytes and metamyelocytes) > 1% indicates that a LEFT SHIFT is Present. International normalized rat io (INR) calculationOrdered By: Christine Borges on 01-25-2025 INR Coag (Bld) [Relative time] 2.6 {INR} [facility] MCV (mean corpuscular volume ) determinationOrdered By: Christine Borges on 01-25-2025 MCV (RBC) [Entitic vol] 85.6 fL 81-99 [facility] Mean corpuscular hemoglobin (MCH) determinationOrdered By: Christine Borges on 01-25-2025 MCH (RBC) [Entitic mass] 28.8 pg 27.0-32.0 [facility] Mean corpuscular hemoglobin concentration (MCHC) determinationOrdered By: Christine Borges on 01-25-2025 MCHC (RBC) [Mass/Vol] 33.7 g/dL 32-36 [facility] Mean platelet volume determi nationOrdered By: Christine Borges 01-25-2025 Platelet mean volume (Bld) [Entitic vol] 8.7 fL 6.2-12.0 [facility] Monocyte percentageOrdered B y: Christine Borges on 01-25-2025 Monocytes/100 WBC (Bld) 4.5 % 0-10 [facility] Neutrophil percentageOrdered By: Christine Borges on 01-25-2025 Neutrophils/100 WBC (Bld) 89.4 % High 47-70 [facility] Nucleated red blood cell per centageOrdered By: Christine Borges on 01-25-2025 Nucleated RBC/100 WBC (Bld) [Ratio] 0 % 0-5 [facility] Platelet countOrdered By: Alida Borges on 01-25-2025 Platelets (Bld) [#/Vol] 383 10*3/uL 150-450 [facility] Potassium measurement (mass/ volume)Ordered By: Christine Borges on 01-25-2025 Potassium (Unsp spec) [Mass/Vol] 4.1 mmol/L 3.3-5.1 [facility] Prothrombin Time w/INRon INR Coag (PPP) [Relative time] 2.6 {INR} Normal [facility] Comment on above: Performed By: #### L 300.3900 ####[facility] [address] [place], [address] PT Coag (PPP) [Time] 28.7 s High 11.7-14.9 [facility] Comment on above: Performed By: #### L 300.3900 ####[facility] [address] [place], [place], [id number] Prothrombin timeOrdered By: Christine Borges on 01-25-2025 PT Coag (PPP) [Time] 28.7 s High 11.7-14.9 [facility] RBC Auto (Bld) [#/Vol]Ordere d By: Christine Borges on 01-25-2025 RBC (Bld) [#/Vol] 5.41 10*6/uL High 4.2-5.4 [facility] Serum creatinine measurement (mass/volume)Ordered By: Christine Borges on 01-25-2025 Creatinine [Mass/Vol] 0.84 mg/dL 0.70-1.20 [facility] Serum glucose measurement (m ass/volume)Ordered By: Christine Borges on 01-25-2025 Glucose [Mass/Vol] 148 mg/dL High 70-99 [facility] Serum or plasma calcium mahnaz urement (mass/volume)Ordered By: Christine Borges on 01-25-2025 Calcium [Mass/Vol] 8.8 mg/dL 7.6-11.0 [facility] Serum or plasma urea nitroge n measurement (mass/volume)Ordered By: Christine Borges on 01-25-2025 Urea nitrogen [Mass/Vol] 27 mg/dL High 4-19 [facility] Sodium levelOrdered By: Christine Borges on 01-25-2025 Sodium [Moles/Vol] 138 mmol/L 133-145 [facility] White blood cell (WBC) count Ordered By: Christine Borges on 01-25-2025 WBC (Bld) [#/Vol] 16.5 10*3/uL High 4.4-11.0 [facility] Basic Metabolic Profile (BMP )on 01-24-2025 BUN/CRE 28.0 RATIO High 10-20 [facility] Comment on above: Performed By: #### L 500.2500, L100.0100 ####[facility] [address] [place], [address] Calcium [Mass/Vol] 8.7 mg/dL Normal 7.6-11.0 [facility] Comment on above: Performed By: #### L 500.2500, L100.0100 ####[facility] [address] [place], [address] Chloride [Moles/Vol] 96 mmol/L Low 98-108 [facility] Comment on above: Performed By: #### L 500.2500, L100.0100 ####[facility] [address] [place], [address] CO2 [Moles/Vol] 25.2 mmol/L Normal 21.0-32.0 [facility] Comment on above: Performed By: #### L 500.2500, L100.0100 ####[facility] [address] [place], [address] Creatinine [Mass/Vol] 0.76 mg/dL Normal 0.70-1.20 [facility] Comment on above: Performed By: #### L 500.2500, L100.0100 ####[facility] [address] [place], [address] ECRCL 40.96 ml/min Low 50-250 [facility] Comment on above: Performed By: #### L 500.2500, L100.0100 ####[facility] [address] [place], [address] GAP 14 Normal 5-15 [facility] Comment on above: Performed By: #### L 500.2500, L100.0100 ####[facility] [address] [place], [address] GFR/1.73 sq M.predicted among non-blacks MDRD (S/P/Bld) [Vol rate/Area] 80 mL/min/{1.73_m2} Normal >60 [facility] Comment on above: Result Comment: mL/m in/1.73m2 CKD-EPI Creatinine Equation (2020) Performed By: #### L 500.2500, L100.0100 ####[facility] [address] [place], [address] Glucose [Mass/Vol] 152 mg/dL High 70-99 [facility] Comment on above: Performed By: #### L 500.2500, L100.0100 ####[facility] [address] [place], [address] Potassium [Moles/Vol] 4.3 mmol/L Normal 3.3-5.1 [facility] Comment on above: Performed By: #### L 500.2500, L100.0100 ####[facility] [address] [place], [address] Sodium [Moles/Vol] 135 mmol/L Normal 133-145 [facility] Comment on above: Performed By: #### L 500.2500, L100.0100 ####[facility] [address] [place], [address] Urea nitrogen [Mass/Vol] 21 mg/dL High 4-19 [facility] Comment on above: Performed By: #### L 500.2500, L100.0100 ####[facility] [address] [place], [address] CBC W/Diff, Automatedon 01-04 Absolute Lymph 0.67 X10 3/uL Low 0.83-4.51 [facility] Comment on above: Performed By: #### L 500.2500, L100.0100 ####[facility] [address] [place], [address] Absolute Neut 15.9 X10 3/uL High 2.0-7.7 [facility] Comment on above: Performed By: #### L 500.2500, L100.0100 ####[facility] [address] [place], [address] Basophils/100 WBC (Bld) 0.1 % Normal 0-1 [facility] Comment on above: Performed By: #### L 500.2500, L100.0100 ####[facility] [address] [place], [address] Eosinophils/100 WBC (Bld) 0.0 % Normal 0-5 [facility] Comment on above: Performed By: #### L 500.2500, L100.0100 ####[facility] [address] [place], [address] Erythrocyte distribution width (RBC) [Ratio] 14.6 % Normal 11.6-14.6 [facility] Comment on above: Performed By: #### L 500.2500, L100.0100 ####[facility] [address] [place], [address] Hematocrit (Bld) [Volume fraction] 41.6 % Normal 37-47 [facility] Comment on above: Performed By: #### L 500.2500, L100.0100 ####[facility] [address] [place], [address] Hemoglobin (Bld) [Mass/Vol] 14.0 g/dL Normal 12.0-15.0 [facility] Comment on above: Performed By: #### L 500.2500, L100.0100 ####[facility] [address] [place], [address] IG% 0.800 Normal 0.0-0.9 [facility] Comment on above: Result Comment: IG% - Immature Granulocytes (promyelocytes, myelocytes andmetamyelocytes) > 1% indicates that a LEFT SHIFT is Present. Performed By: #### L 500.2500, L100.0100 ####[facility] [address] [place], [address] Lymphocytes/100 WBC (Bld) 3.9 % Low 19-41 [facility] Comment on above: Performed By: #### L 500.2500, L100.0100 ####[facility] [address] [place], [address] MCH (RBC) [Entitic mass] 28.8 pg Normal 27.0-32.0 [facility] Comment on above: Performed By: #### L 500.2500, L100.0100 ####[facility] [address] [place], [address] MCHC (RBC) [Mass/Vol] 33.7 g/dL Normal 32-36 [facility] Comment on above: Performed By: #### L 500.2500, L100.0100 ####[facility] [address] [place], [address] MCV (RBC) [Entitic vol] 85.6 fL Normal 81-99 [facility] Comment on above: Performed By: #### L 500.2500, L100.0100 ####[facility] [address] [place], [address] Monocytes/100 WBC (Bld) 2.5 % Normal 0-10 [facility] Comment on above: Performed By: #### L 500.2500, L100.0100 ####[facility] [address] [place], [address] Neutrophils/100 WBC (Bld) 92.7 % High 47-70 [facility] Comment on above: Performed By: #### L 500.2500, L100.0100 ####[facility] [address] [place], [address] Nucleated RBC (Bld) [#/Vol] 0 10*3/uL Normal 0-5 [facility] Comment on above: Performed By: #### L 500.2500, L100.0100 ####[facility] [address] [place], [address] Platelet mean volume (Bld) [Entitic vol] 9.3 fL Normal 6.2-12.0 [facility] Comment on above: Performed By: #### L 500.2500, L100.0100 ####[facility] [address] [place], [address] Platelets (Bld) [#/Vol] 319 10*3/uL Normal 150-450 [facility] Comment on above: Performed By: #### L 500.2500, L100.0100 ####[facility] [address] [place], [address] RBC (Bld) [#/Vol] 4.86 10*6/uL Normal 4.2-5.4 [facility] Comment on above: Performed By: #### L 500.2500, L100.0100 ####[facility] [address] [place], [address] RDW SD 45.5 fl High 35.1-43.9 [facility] Comment on above: Performed By: #### L 500.2500, L100.0100 ####[facility] [address] [place], [address] WBC (Bld) [#/Vol] 17.2 10*3/uL High 4.4-11.0 [facility] Comment on above: Performed By: #### L 500.2500, L100.0100 ####[facility] [address] [place], [address] Prothrombin Time w/INRon INR Coag (PPP) [Relative time] 2.4 {INR} Normal [facility] Comment on above: Performed By: #### L 300.3900 ####[facility] [address] [place], [address] PT Coag (PPP) [Time] 26.5 s High 11.7-14.9 [facility] Comment on above: Performed By: #### L 300.3900 ####[facility] [address] [place], [address] Basic Metabolic Profile (BMP )on 01-23-2025 BUN/CRE 18.4 RATIO Normal 10-20 [facility] Comment on above: Performed By: #### L 500.2500 ####[facility] [address] [place], [address] Calcium [Mass/Vol] 8.4 mg/dL Normal 7.6-11.0 [facility] Comment on above: Performed By: #### L 500.2500 ####[facility] [address] [place], [address] Chloride [Moles/Vol] 97 mmol/L Low 98-108 [facility] Comment on above: Performed By: #### L 500.2500 ####[facility] [address] [place], [address] CO2 [Moles/Vol] 23.6 mmol/L Normal 21.0-32.0 [facility] Comment on above: Performed By: #### L 500.2500 ####[facility] [address] [place], [address] Creatinine [Mass/Vol] 0.76 mg/dL Normal 0.70-1.20 [facility] Comment on above: Performed By: #### L 500.2500 ####[facility] [address] [place], [address] ECRCL 40.96 ml/min Low 50-250 [facility] Comment on above: Performed By: #### L 500.2500 ####[facility] [address] [place], [address] GAP 14 Normal 5-15 [facility] Comment on above: Performed By: #### L 500.2500 ####[facility] [address] [place], [address] GFR/1.73 sq M.predicted among non-blacks MDRD (S/P/Bld) [Vol rate/Area] 80 mL/min/{1.73_m2} Normal >60 [facility] Comment on above: Result Comment: mL/m in/1.73m2 CKD-EPI Creatinine Equation (2020) Performed By: #### L 500.2500 ####[facility] [address] [place], [address] Glucose [Mass/Vol] 184 mg/dL High 70-99 [facility] Comment on above: Performed By: #### L 500.2500 ####[facility] [address] [place], [address] Potassium [Moles/Vol] 3.9 mmol/L Normal 3.3-5.1 [facility] Comment on above: Performed By: #### L 500.2500 ####[facility] [address] [place], [address] Sodium [Moles/Vol] 134 mmol/L Normal 133-145 [facility] Comment on above: Performed By: #### L 500.2500 ####[facility] [address] [place], [address] Urea nitrogen [Mass/Vol] 14 mg/dL Normal 4-19 [facility] Comment on above: Performed By: #### L 500.2500 ####[facility] [address] [place], [address] CBC-Complete Blood Cnt No Sandra jhaverion 01-23-2025 Erythrocyte distribution width (RBC) [Ratio] 14.6 % Normal 11.6-14.6 [facility] Comment on above: Performed By: #### L 100.0500 ####[facility] [address] [place], [address] Hematocrit (Bld) [Volume fraction] 41.5 % Normal 37-47 [facility] Comment on above: Performed By: #### L 100.0500 ####[facility] [address] [place], [address] Hemoglobin (Bld) [Mass/Vol] 14.1 g/dL Normal 12.0-15.0 [facility] Comment on above: Performed By: #### L 100.0500 ####[facility] [address] [place], [address] MCH (RBC) [Entitic mass] 29.3 pg Normal 27.0-32.0 [facility] Comment on above: Performed By: #### L 100.0500 ####[facility] [address] [place], [address] MCHC (RBC) [Mass/Vol] 34.0 g/dL Normal 32-36 [facility] Comment on above: Performed By: #### L 100.0500 ####[facility] [address] [place], [address] MCV (RBC) [Entitic vol] 86.1 fL Normal 81-99 [facility] Comment on above: Performed By: #### L 100.0500 ####[facility] [address] [place], [address] Platelet mean volume (Bld) [Entitic vol] 9.0 fL Normal 6.2-12.0 [facility] Comment on above: Performed By: #### L 100.0500 ####[facility] [address] [place], [address] Platelets (Bld) [#/Vol] 266 10*3/uL Normal 150-450 [facility] Comment on above: Performed By: #### L 100.0500 ####[facility] [address] [place], [address] RBC (Bld) [#/Vol] 4.82 10*6/uL Normal 4.2-5.4 [facility] Comment on above: Performed By: #### L 100.0500 ####[facility] [address] [place], [address] RDW SD 45.8 fl High 35.1-43.9 [facility] Comment on above: Performed By: #### L 100.0500 ####[facility] [address] [place], [address] WBC (Bld) [#/Vol] 9.1 10*3/uL Normal 4.4-11.0 [facility] Comment on above: Performed By: #### L 100.0500 ####[facility] [address] [place], [address] Prothrombin Time w/INRon INR Coag (PPP) [Relative time] 2.1 {INR} Normal [facility] Comment on above: Performed By: #### L 300.3900 ####[facility] [address] [place], [address] PT Coag (PPP) [Time] 24.3 s High 11.7-14.9 [facility] Comment on above: Performed By: #### L 300.3900 ####[facility] [address] [place], [address] Abdomen/Pelvis W IV Cont ONL Yon 01-22-2025 Abdomen/Pelvis W IV Cont ONLY Normal [facility] Absolute lymphocyte countOrd ered By: Juan Vines on 01-22-2025 Lymphocytes Auto (Unsp spec) [#/Vol] 0.70 10*3/uL Low 0.83-4.51 [facility] Absolute neutrophil countOrd ered By: Juan Vines on 01-22-2025 Neutrophils (Bld) [#/Vol] 11.4 10*3/uL High 2.0-7.7 [facility] Anion gap in Serum or Plasma Ordered By: Juan Vines on 01-22-2025 Anion gap [Moles/Vol] 14 mmol/L - [facility] Automated lymphocyte count a s percentage of total leukocytesOrdered By: Juan Vines on 01-22-2025 Lymphocytes/100 WBC Auto (Unsp spec) 5.2 % Low [facility] BUN/creatinine ratioOrdered By: Juan Vines on 01-22-2025 Urea nitrogen/Creatinine [Mass ratio] 13.0 mg/mg 03-24 [facility] Basophil percentageOrdered B y: Juan Vines on 01-22-2025 Basophils/100 WBC (Bld) 0.4 % 0-1 [facility] Bilirubin Test strip Ql (U)O rdered By: Juan Vines on 01-22-2025 Bilirubin Ql (U) Negative Negative [facility] Bilirubin, totalOrdered By: Juan Vines on 01-22-2025 Bilirubin [Mass/Vol] 1.14 mg/dL 0.00-1.30 [facility] CBC W/Diff, Automatedon 01-04 Absolute Lymph 0.70 X10 3/uL Low 0.83-4.51 [facility] Comment on above: Performed By: #### L 501.2450, L300.3900, L100.0100, L500.4050 ####[facility] [address] [place], [address] Absolute Neut 11.4 X10 3/uL High 2.0-7.7 [facility] Comment on above: Performed By: #### L 501.2450, L300.3900, L100.0100, L500.4050 ####[facility] [address] [place], [address] Basophils/100 WBC (Bld) 0.4 % Normal 0-1 [facility] Comment on above: Performed By: #### L 501.2450, L300.3900, L100.0100, L500.4050 ####[facility] [address] [place], [address] Eosinophils/100 WBC (Bld) 0.1 % Normal 0-5 [facility] Comment on above: Performed By: #### L 501.2450, L300.3900, L100.0100, L500.4050 ####[facility] [address] [place], [address] Erythrocyte distribution width (RBC) [Ratio] 14.6 % Normal 11.6-14.6 [facility] Comment on above: Performed By: #### L 501.2450, L300.3900, L100.0100, L500.4050 ####[facility] [address] [place], [address] Hematocrit (Bld) [Volume fraction] 42.8 % Normal 37-47 [facility] Comment on above: Performed By: #### L 501.2450, L300.3900, L100.0100, L500.4050 ####[facility] [address] [place], [address] Hemoglobin (Bld) [Mass/Vol] 14.2 g/dL Normal 12.0-15.0 [facility] Comment on above: Performed By: #### L 501.2450, L300.3900, L100.0100, L500.4050 ####[facility] [address] [place], [address] IG% 0.500 Normal 0.0-0.9 [facility] Comment on above: Result Comment: IG% - Immature Granulocytes (promyelocytes, myelocytes andmetamyelocytes) > 1% indicates that a LEFT SHIFT is Present. Performed By: #### L 501.2450, L300.3900, L100.0100, L500.4050 ####[facility] [address] [place], [address] Lymphocytes/100 WBC (Bld) 5.2 % Low 19-41 [facility] Comment on above: Performed By: #### L 501.2450, L300.3900, L100.0100, L500.4050 ####[facility] [address] [place], [address] MCH (RBC) [Entitic mass] 28.6 pg Normal 27.0-32.0 [facility] Comment on above: Performed By: #### L 501.2450, L300.3900, L100.0100, L500.4050 ####[facility] [address] [place], [address] MCHC (RBC) [Mass/Vol] 33.2 g/dL Normal 32-36 [facility] Comment on above: Performed By: #### L 501.2450, L300.3900, L100.0100, L500.4050 ####[facility] [address] [place], [address] MCV (RBC) [Entitic vol] 86.3 fL Normal 81-99 [facility] Comment on above: Performed By: #### L 501.2450, L300.3900, L100.0100, L500.4050 ####[facility] [address] [place], [address] Monocytes/100 WBC (Bld) 9.4 % Normal 0-10 [facility] Comment on above: Performed By: #### L 501.2450, L300.3900, L100.0100, L500.4050 ####[facility] [address] [place], [address] Neutrophils/100 WBC (Bld) 84.4 % High 47-70 [facility] Comment on above: Performed By: #### L 501.2450, L300.3900, L100.0100, L500.4050 ####[facility] [facility] [address] [place], [address] Nucleated RBC (Bld) [#/Vol] 0 10*3/uL Normal 0-5 [facility] Comment on above: Performed By: #### L 501.2450, L300.3900, L100.0100, L500.4050 ####[facility] [address] [place], [address] Platelet mean volume (Bld) [Entitic vol] 9.4 fL Normal 6.2-12.0 [facility] Comment on above: Performed By: #### L 501.2450, L300.3900, L100.0100, L500.4050 ####[facility] [address] [place], [address] Platelets (Bld) [#/Vol] 289 10*3/uL Normal 150-450 [facility] Comment on above: Performed By: #### L 501.2450, L300.3900, L100.0100, L500.4050 ####[facility] [address] [place], [address] RBC (Bld) [#/Vol] 4.96 10*6/uL Normal 4.2-5.4 [facility] Comment on above: Performed By: #### L 501.2450, L300.3900, L100.0100, L500.4050 ####[facility] [address] [place], [address] RDW SD 46.0 fl High 35.1-43.9 [facility] Comment on above: Performed By: #### L 501.2450, L300.3900, L100.0100, L500.4050 ####[facility] [address] [place], [address] WBC (Bld) [#/Vol] 13.5 10*3/uL High 4.4-11.0 [facility] Comment on above: Performed By: #### L 501.2450, L300.3900, L100.0100, L500.4050 ####[facility] [address] [place], [address] Carbon dioxide, total [Moles /volume] in Central venous bloodOrdered By: Juan Vines on 01-22-2025 CO2 [Moles/Vol] 22.0 mmol/L 21.0-32.0 [facility] Chest PA and Lateralon 01-22 Chest PA and Lateral Normal [facility] Chloride assayOrdered By: Jacky Vines on 01-22-2025 Chloride [Moles/Vol] 94 mmol/L Low 98-108 [facility] Comprehensive Metabolic Prof ilon 01-22-2025 Albumin [Mass/Vol] 3.9 g/dL Normal 3.4-4.8 [facility] Comment on above: Performed By: #### L 501.2450, L300.3900, L100.0100, L500.4050 ####[facility] [address] [place], [address] Albumin/Globulin [Mass ratio] 1.0 {ratio} Normal 0.9-2.4 [facility] Comment on above: Performed By: #### L 501.2450, L300.3900, L100.0100, L500.4050 ####[facility] [address] [place], [address] ALK PHOS 109 U/L High 35-104 [facility] Comment on above: Performed By: #### L 501.2450, L300.3900, L100.0100, L500.4050 ####[facility] [address] [place], [address] ALT [Catalytic activity/Vol] 11 U/L Normal <=34 [facility] Comment on above: Performed By: #### L 501.2450, L300.3900, L100.0100, L500.4050 ####[facility] [address] [place], [address] AST [Catalytic activity/Vol] 20 U/L Normal <=31 [facility] Comment on above: Performed By: #### L 501.2450, L300.3900, L100.0100, L500.4050 ####[facility] [address] [place], [address] Bilirubin [Mass/Vol] 1.14 mg/dL Normal 0.00-1.30 [facility] Comment on above: Performed By: #### L 501.2450, L300.3900, L100.0100, L500.4050 ####[facility] [address] [place], [address] BUN/CRE 13.0 RATIO Normal 10-20 [facility] Comment on above: Performed By: #### L 501.2450, L300.3900, L100.0100, L500.4050 ####[facility] [address] [place], [address] Calcium [Mass/Vol] 8.6 mg/dL Normal 7.6-11.0 [facility] Comment on above: Performed By: #### L 501.2450, L300.3900, L100.0100, L500.4050 ####[facility] [address] [place], [address] Chloride [Moles/Vol] 94 mmol/L Low 98-108 [facility] Comment on above: Performed By: #### L 501.2450, L300.3900, L100.0100, L500.4050 ####[facility] [address] [place], [address] CO2 [Moles/Vol] 22.0 mmol/L Normal 21.0-32.0 [facility] Comment on above: Performed By: #### L 501.2450, L300.3900, L100.0100, L500.4050 ####[facility] [address] [place], [address] Creatinine [Mass/Vol] 0.79 mg/dL Normal 0.70-1.20 [facility] Comment on above: Performed By: #### L 501.2450, L300.3900, L100.0100, L500.4050 ####[facility] [address] [place], [address] ECRCL 43.03 ml/min Low 50-250 [facility] Comment on above: Performed By: #### L 501.2450, L300.3900, L100.0100, L500.4050 ####[facility] [address] [place], [address] GAP 14 Normal 5-15 [facility] Comment on above: Performed By: #### L 501.2450, L300.3900, L100.0100, L500.4050 ####[facility] [address] [place], [address] GFR/1.73 sq M.predicted among non-blacks MDRD (S/P/Bld) [Vol rate/Area] 77 mL/min/{1.73_m2} Normal >60 [facility] Comment on above: Result Comment: mL/m in/1.73m2 CKD-EPI Creatinine Equation (2020) Performed By: #### L 501.2450, L300.3900, L100.0100, L500.4050 ####[facility] [address] [place], [address] Globulin (S) [Mass/Vol] 3.7 g/dL Normal 2.2-4.2 [facility] Comment on above: Performed By: #### L 501.2450, L300.3900, L100.0100, L500.4050 ####[facility] [address] [place], [address] Glucose [Mass/Vol] 116 mg/dL High 70-99 [facility] Comment on above: Performed By: #### L 501.2450, L300.3900, L100.0100, L500.4050 ####[facility] [address] [place], [address] Potassium [Moles/Vol] 4.0 mmol/L Normal 3.3-5.1 [facility] Comment on above: Performed By: #### L 501.2450, L300.3900, L100.0100, L500.4050 ####[facility] [address] [place], [address] Sodium [Moles/Vol] 130 mmol/L Low 133-145 [facility] Comment on above: Performed By: #### L 501.2450, L300.3900, L100.0100, L500.4050 ####[facility] [address] [place], [address] T PROT 7.6 g/dL Normal 5.9-8.4 [facility] Comment on above: Performed By: #### L 501.2450, L300.3900, L100.0100, L500.4050 ####[facility] [address] [place], [address] Urea nitrogen [Mass/Vol] 10 mg/dL Normal 4-19 [facility] Comment on above: Performed By: #### L 501.2450, L300.3900, L100.0100, L500.4050 ####[facility] [address] [place], [address] Emergency Department Summary on 01-22-2025 Emergency Department Summary Normal [facility] Eosinophil percentageOrdered By: Juan Vines on 01-22-2025 Eosinophils/100 WBC (Bld) 0.1 % 0-5 [facility] Erythrocyte distribution wid th ratioOrdered By: Juan Vines on 01-22-2025 Erythrocyte distribution width (RBC) [Ratio] 14.6 % 11.6-14.6 [facility] Erythrocyte distribution wid th standard deviationOrdered By: Juan Vines on 01-22-2025 Erythrocyte distribution width (RBC) [Ratio] 46.0 fl High 35.1-43.9 [facility] Glomerular filtration rate ( GFR) estimation/1.73 sq m using serum, plasma, or whole bOrdered By: Juan Vines on 01-22-2025 GFR/1.73 sq M.predicted among non-blacks MDRD (S/P/Bld) [Vol rate/Area] 77 mL/min/{1.73_m2} >60 [facility] Comment on above: mL/min/1.73m2 CKD-EP I Creatinine Equation (2020) H AND P Exam - [facility] 01-22-2025 H&P Exam - Hospitalist Normal [facility] Hematocrit Auto (Bld) [Volum e fraction]Ordered By: Juan Vines on 01-22-2025 Hematocrit (Bld) [Volume fraction] 42.8 % 37-47 [facility] Hemoglobin measurementOrdere d By: Juan Vines on 01-22-2025 Hemoglobin (Bld) [Mass/Vol] 14.2 g/dL 12.0-15.0 [facility] Immature granulocytes/100 WB C Auto (Bld)Ordered By: Juan Vines on 01-22-2025 Immature granulocytes/100 WBC (Bld) 0.500 % 0.0-0.9 [facility] Comment on above: IG% - Immature Granu locytes (promyelocytes, myelocytes and metamyelocytes) > 1% indicates that a LEFT SHIFT is Present. Influenza virus A and B and SARS-CoV-2 (COVID-19) and Respiratory syncytial virus RNAOrdered By: Juan Vines on 01-22-2025 SARS-CoV-2 (COVID-19) RNA KASHIF+probe Ql (Unsp spec) [facility] International normalized rat io (INR) calculationOrdered By: Juan Vines on 01-22-2025 INR Coag (Bld) [Relative time] 2.1 {INR} [facility] Ketones Test strip Ql (U)Ord ered By: Juan Vines on 01-22-2025 Ketones Ql (U) Negative Negative [facility] L509.7001on 01-22-2025 Procalcitonin 0.12 ng/mL High <=0.10 [facility] Comment on above: Result Comment: Inte rpretation:<0.10-0.25 ng/mL: Antibiotic therapy discouraged. Bacterialinfection unlikely.0.25-0.50 ng/mL: Antibiotic therapy encouraged. Bacterialinfection possible.>0.50 ng/mL: Antibiotic therapy strongly encouraged.Suggestive of presence of bacterial infection.PCT should always be interpreted in the clinical context ofthe patient. Therefore, clinicians should use the PCTresults in conjunction with other laboratory findings andclinical signs of the patient. Performed By: #### L 503.7505, L509.7001 ####[facility] [address] [place], [place], [id number] Laboratory - Chemistry and C hemistry - challengeOrdered By: Juan Vines on 01-22-2025 AST [Catalytic activity/Vol] 20 U/L <32 [facility] Lipaseon 01-22-2025 Lipase [Catalytic activity/Vol] 23 U/L Normal 13-75 [facility] Comment on above: Result Comment: Plea se note:LIPASE revised reference range effective 22.New Lipase methodology. Expected to produce lower valuesthan the previous assay method.NEW Reference Range: 13 - 75 U/L Performed By: #### L 501.2450, L300.3900, L100.0100, L500.4050 ####[facility] [address] [place], [place], [address] Lipase measurementOrdered By : Juan Vines on 01-22-2025 Lipase [Catalytic activity/Vol] 23 U/L 13-75 [facility] Comment on above: Please note:LIPASE r evised reference range effective 22. New Lipase methodology. Expected to produce lower values than the previous assay method. NEW Reference Range: 13 - 75 U/L M100.678on 01-22-2025 M100.678 Pending SARS-CoV-2 (COVID 19) Negative INFLUENZA A Negative INFLUENZA B Negative RSV PCR Negative Normal [facility] Comment on above: Performed By: #### M 100.678 ####[facility] [address] [place], [address] MCV (mean corpuscular volume ) determinationOrdered By: Juan Vines on 01-22-2025 MCV (RBC) [Entitic vol] 86.3 fL 81-99 [facility] Mean corpuscular hemoglobin (MCH) determinationOrdered By: Juan Vines on 01-22-2025 MCH (RBC) [Entitic mass] 28.6 pg 27.0-32.0 [facility] Mean corpuscular hemoglobin concentration (MCHC) determinationOrdered By: Juan Vines on 01-22-2025 MCHC (RBC) [Mass/Vol] 33.2 g/dL 32-36 [facility] Mean platelet volume determi nationOrdered By: Juan Vines on 01-22-2025 Platelet mean volume (Bld) [Entitic vol] 9.4 fL 6.2-12.0 [facility] Microscopic analysis of urin e for red blood cells (RBC)Ordered By: Juan Vines on 01-22-2025 Microscopic analysis of urine for red blood cells (RBC) 0-5 SEEN /hpf 0-5 [facility] Monocyte percentageOrdered B y: Juan Vines on 01-22-2025 Monocytes/100 WBC (Bld) 9.4 % 0-10 [facility] Mucus LM Ql (Urine sed)Order ed By: Juan Vines on 01-22-2025 Mucus Ql (Urine sed) 0 SEEN /hpf [facility] Natriuretic peptide.B prohor frida N-Terminal [Mass/volume] in Serum or PlasmaOrdered By: Philip Kamara on 01-22-2025 Natriuretic peptide.B prohormone N-Terminal [Mass/Vol] 4301 pg/mL High <1800 [facility] Comment on above: Heart Failure Unlike ly: < 300 pg/mLHeart Failure Likely< 50 Years: > 450 pg/mL50-75 Years: > 900 pg/mL>75 Years: > 1800 pg/mL Neutrophil percentageOrdered By: Juan Vines on 01-22-2025 Neutrophils/100 WBC (Bld) 84.4 % High 47-70 [facility] Nitrite Test strip Ql (U)Ord ered By: Juan Vines on 01-22-2025 Nitrite Ql (U) Negative Negative [facility] Nucleated red blood cell per centageOrdered By: Juan Vines on 01-22-2025 Nucleated RBC/100 WBC (Bld) [Ratio] 0 % 0-5 [facility] Platelet countOrdered By: Jacky Vines on 01-22-2025 Platelets (Bld) [#/Vol] 289 10*3/uL 150-450 [facility] Potassium measurement (mass/ volume)Ordered By: Juan Vines on 01-22-2025 Potassium (Unsp spec) [Mass/Vol] 4.0 mmol/L 3.3-5.1 [facility] Pro- Brain NATRIURETIC PEPTI Jaya 01-22-2025 Natriuretic peptide B (Bld) [Mass/Vol] 4301 pg/mL High <=1800 [facility] Comment on above: Result Comment: Hear t Failure Unlikely: < 300 pg/mLHeart Failure Likely< 50 Years: > 450 pg/mL50-75 Years: > 900 pg/mL>75 Years: > 1800 pg/mL Performed By: #### L 503.7505, L509.7001 ####[facility] [address] [place], [place], [id number] Procalcitonin [Mass/volume] in Serum or Plasma by ImmunoassayOrdered By: Philip Kamara on 01-22-2025 Procalcitonin IA [Mass/Vol] 0.12 ng/mL High <0.11 [facility] Comment on above: Interpretation:<0.10 -0.25 ng/mL: [...] Protein Ql (U) Negative Negative [facility] Prothrombin Time w/INRon INR Coag (PPP) [Relative time] 2.1 {INR} Normal [facility] Comment on above: Performed By: #### L 501.2450, L300.3900, L100.0100, L500.4050 ####[facility] [address] [place], [address] PT Coag (PPP) [Time] 24.3 s High 11.7-14.9 [facility] Comment on above: Performed By: #### L 501.2450, L300.3900, L100.0100, L500.4050 ####[facility] [address] [place], [address] Prothrombin timeOrdered By: Juan Vines on 01-22-2025 PT Coag (PPP) [Time] 24.3 s High 11.7-14.9 [facility] RBC Auto (Bld) [#/Vol]Ordere d By: Juan Vines on 01-22-2025 RBC (Bld) [#/Vol] 4.96 10*6/uL 4.2-5.4 [facility] Serum creatinine measurement (mass/volume)Ordered By: Juan Vines on 01-22-2025 Creatinine [Mass/Vol] 0.79 mg/dL 0.70-1.20 [facility] Serum globulin measurementOr dered By: Juan Vines on 01-22-2025 Globulin (S) [Mass/Vol] 3.7 g/dL 2.2-4.2 [facility] Serum glucose measurement (m ass/volume)Ordered By: Juan Vines on 01-22-2025 Glucose [Mass/Vol] 116 mg/dL High 70-99 [facility] Serum or plasma alanine mo otransferase (ALT) measurementOrdered By: Juan Vines on 01-22-2025 ALT [Catalytic activity/Vol] 11 U/L <35 [facility] Serum or plasma albumin mahnaz urement (mass/volume)Ordered By: Juan Vines on 01-22-2025 Albumin [Mass/Vol] 3.9 g/dL 3.4-4.8 [facility] Serum or plasma albumin/glob ulin mass ratioOrdered By: Juan Vines on 01-22-2025 Albumin/Globulin [Mass ratio] 1.0 {ratio} 0.9-2.4 [facility] Serum or plasma alkaline ejy sphatase measurementOrdered By: Juan Vines on 01-22-2025 ALP [Catalytic activity/Vol] 109 U/L High 35-104 [facility] Serum or plasma calcium mahnaz urement (mass/volume)Ordered By: Juan Vines on 01-22-2025 Calcium [Mass/Vol] 8.6 mg/dL 7.6-11.0 [facility] Serum or plasma urea nitroge n measurement (mass/volume)Ordered By: Juan Vines on 01-22-2025 Urea nitrogen [Mass/Vol] 10 mg/dL 4-19 [facility] Sodium levelOrdered By: Juan Vines on 01-22-2025 Sodium [Moles/Vol] 130 mmol/L Low 133-145 [facility] Squamous epithelial cells de tection in urine sediment by light microscopyOrdered By: Juan Vines on 01-22-2025 Epithelial cells.squamous LM Ql (Urine sed) 0-5 SEEN /hpf 5-10 [facility] Total proteinOrdered By: Chad Vines on 01-22-2025 Protein [Mass/Vol] 7.6 g/dL 5.9-8.4 [facility] Urinalysis, Completeon 01-22 BACTERIA RARE Normal None Seen [facility] Comment on above: Order Comment: CLEAN CATCH Performed By: #### L 400.0001 ####[facility] [address] [place], [address] EPI,SQUAMOUS 0-5 SEEN Normal 5-10 [facility] Comment on above: Order Comment: CLEAN CATCH Performed By: #### L 400.0001 ####[facility] [address] [place], [address] RBC 0-5 SEEN Normal 0-5 [facility] Comment on above: Order Comment: CLEAN CATCH Performed By: #### L 400.0001 ####[facility] [address] [place], [address] WBC 0-5 SEEN Normal 0-5 [facility] Comment on above: Order Comment: CLEAN CATCH Performed By: #### L 400.0001 ####[facility] [address] [place], [address] Mucus Ql (Urine sed) 0 SEEN Normal [facility] Comment on above: Order Comment: CLEAN CATCH Performed By: #### L 400.0001 ####[facility] [address] [place], [address] Urine clarityOrdered By: Chad Vines on 01-22-2025 Clarity (U) Clear Clear [facility] Urine color determinationOrd ered By: Juan Vines on 01-22-2025 Color (U) Straw Yellow [facility] Urine glucose detectionOrder ed By: Juan Vines on 01-22-2025 Glucose Ql (U) Normal mg/dl Normal [facility] Urine leukocyte esterase det ection by dipstickOrdered By: Juan Vines on 01-22-2025 Leukocyte esterase Test strip Ql (U) Negative Negative [facility] Urine pHOrdered By: Juan muhammad on 01-22-2025 pH (U) 6.5 [pH] 5.0 - 8.0 [facility] Urine sediment bacteria coun t by microscopy (number/high power field)Ordered By: Juan Vines on 01-22-2025 Bacteria LM.HPF (Urine sed) [#/Area] RARE /hpf None Seen [facility] Urine specific gravity measu rementOrdered By: Juan Vines on 01-22-2025 Specific gravity (U) [Rel density] 1.010 1.002-1.030 [facility] Urine urobilinogen measureme ntOrdered By: Juan Vines on 01-22-2025 Urobilinogen Ql (U) Normal mg/dl Normal [facility] White blood cell (WBC) count Ordered By: Juan Vines on 01-22-2025 WBC (Bld) [#/Vol] 13.5 10*3/uL High 4.4-11.0 [facility] White blood cell countOrdere d By: Juan Vines on 01-22-2025 White blood cell count 0-5 SEEN /hpf 0-5 [facility] INR (POC)on 01-16-2025 INR Coag (PPP) [Relative time] 2.2 {INR} High 0.8 - 1.2 [facility] Internal Quality Check Acceptable [facility] Interpretation and review of laboratory results Abnormal [facility] Location:[facility], [address] [place] [address], [place], [place], [id number] [place] [address] POINT OF CARE [facility] Abdomen/Pelvis W IV Cont ONL Yon 01-02-2025 Abdomen/Pelvis W IV Cont ONLY Normal [facility] Absolute lymphocyte countOrd ered By: Pablo Watson on 01-02-2025 Lymphocytes Auto (Unsp spec) [#/Vol] 0.83 10*3/uL 0.83-4.51 [facility] Absolute neutrophil countOrd ered By: Pablo Watson on 01-02-2025 Neutrophils (Bld) [#/Vol] 6.2 10*3/uL 2.0-7.7 [facility] Anion gap in Serum or Plasma Ordered By: Pablo Watson on 01-02-2025 Anion gap [Moles/Vol] 11 mmol/L 5-15 [facility] Automated lymphocyte count a s percentage of total leukocytesOrdered By: Pablo Watson on 01-02-2025 Lymphocytes/100 WBC Auto (Unsp spec) 10.2 % Low 19-41 [facility] BUN/creatinine ratioOrdered By: Pablo Watson on 01-02-2025 Urea nitrogen/Creatinine [Mass ratio] 15.7 mg/mg 10-20 [facility] Basophil percentageOrdered B y: Pablo Watson on 01-02-2025 Basophils/100 WBC (Bld) 0.5 % 0-1 [facility] Bilirubin Test strip Ql (U)O rdered By: Pablo Watson on 01-02-2025 Bilirubin Ql (U) Negative Negative [facility] Bilirubin, totalOrdered By: Pablo Watson on 01-02-2025 Bilirubin [Mass/Vol] 0.38 mg/dL 0.00-1.30 [facility] CBC W/Diff, Automatedon 12-05 Absolute Lymph 0.83 X10 3/uL Normal 0.83-4.51 [facility] Comment on above: Performed By: #### L 500.4050, L100.0100, L501.2450 ####[facility] [address] [place], [address] Absolute Neut 6.2 X10 3/uL Normal 2.0-7.7 [facility] Comment on above: Performed By: #### L 500.4050, L100.0100, L501.2450 ####[facility] [address] [place], [address] Basophils/100 WBC (Bld) 0.5 % Normal 0-1 [facility] Comment on above: Performed By: #### L 500.4050, L100.0100, L501.2450 ####[facility] [address] [place], [address] Eosinophils/100 WBC (Bld) 0.5 % Normal 0-5 [facility] Comment on above: Performed By: #### L 500.4050, L100.0100, L501.2450 ####[facility] [address] [place], [address] Erythrocyte distribution width (RBC) [Ratio] 14.2 % Normal 11.6-14.6 [facility] Comment on above: Performed By: #### L 500.4050, L100.0100, L501.2450 ####[facility] [address] [place], [address] Hematocrit (Bld) [Volume fraction] 40.8 % Normal 37-47 [facility] Comment on above: Performed By: #### L 500.4050, L100.0100, L501.2450 ####[facility] [address] [place], [address] Hemoglobin (Bld) [Mass/Vol] 13.5 g/dL Normal 12.0-15.0 [facility] Comment on above: Performed By: #### L 500.4050, L100.0100, L501.2450 ####[facility] [address] [place], [address] IG% 0.200 Normal 0.0-0.9 [facility] Comment on above: Result Comment: IG% - Immature Granulocytes (promyelocytes, myelocytes andmetamyelocytes) > 1% indicates that a LEFT SHIFT is Present. Performed By: #### L 500.4050, L100.0100, L501.2450 ####[facility] [address] [place], [address] Lymphocytes/100 WBC (Bld) 10.2 % Low 19-41 [facility] Comment on above: Performed By: #### L 500.4050, L100.0100, L501.2450 ####[facility] [address] [place], [address] MCH (RBC) [Entitic mass] 28.9 pg Normal 27.0-32.0 [facility] Comment on above: Performed By: #### L 500.4050, L100.0100, L501.2450 ####[facility] [address] [place], [address] MCHC (RBC) [Mass/Vol] 33.1 g/dL Normal 32-36 [facility] Comment on above: Performed By: #### L 500.4050, L100.0100, L501.2450 ####[facility] [address] [place], [address] MCV (RBC) [Entitic vol] 87.4 fL Normal 81-99 [facility] Comment on above: Performed By: #### L 500.4050, L100.0100, L501.2450 ####[facility] [address] [place], [address] Monocytes/100 WBC (Bld) 12.7 % High 0-10 [facility] Comment on above: Performed By: #### L 500.4050, L100.0100, L501.2450 ####[facility] [address] [place], [address] Neutrophils/100 WBC (Bld) 75.9 % High 47-70 [facility] Comment on above: Performed By: #### L 500.4050, L100.0100, L501.2450 ####[facility] [address] [place], [address] Nucleated RBC (Bld) [#/Vol] 0 10*3/uL Normal 0-5 [facility] Comment on above: Performed By: #### L 500.4050, L100.0100, L501.2450 ####[facility] [address] [place], [address] Platelet mean volume (Bld) [Entitic vol] 9.1 fL Normal 6.2-12.0 [facility] Comment on above: Performed By: #### L 500.4050, L100.0100, L501.2450 ####[facility] [address] [place], [address] Platelets (Bld) [#/Vol] 267 10*3/uL Normal 150-450 [facility] Comment on above: Performed By: #### L 500.4050, L100.0100, L501.2450 ####[facility] [address] [place], [address] RBC (Bld) [#/Vol] 4.67 10*6/uL Normal 4.2-5.4 [facility] Comment on above: Performed By: #### L 500.4050, L100.0100, L501.2450 ####[facility] [address] [place], [address] RDW SD 45.2 fl High 35.1-43.9 [facility] Comment on above: Performed By: #### L 500.4050, L100.0100, L501.2450 ####[facility] [address] [place], [address] WBC (Bld) [#/Vol] 8.1 10*3/uL Normal 4.4-11.0 [facility] Comment on above: Performed By: #### L 500.4050, L100.0100, L501.2450 ####[facility] [address] [place], [address] Carbon dioxide, total [Moles /volume] in Central venous bloodOrdered By: Pablo Watson on 01-02-2025 CO2 [Moles/Vol] 23.0 mmol/L 21.0-32.0 [facility] Chloride assayOrdered By: Favian Watson on 01-02-2025 Chloride [Moles/Vol] 103 mmol/L 98-108 [facility] Comprehensive Metabolic Prof ilon 01-02-2025 Albumin [Mass/Vol] 3.8 g/dL Normal 3.4-4.8 [facility] Comment on above: Performed By: #### L 500.4050, L100.0100, L501.2450 ####[facility] [address] [place], [address] Albumin/Globulin [Mass ratio] 1.2 {ratio} Normal 0.9-2.4 [facility] Comment on above: Performed By: #### L 500.4050, L100.0100, L501.2450 ####[facility] [address] [place], [address] ALK PHOS 114 U/L High 35-104 [facility] Comment on above: Performed By: #### L 500.4050, L100.0100, L501.2450 ####[facility] [address] [place], [address] ALT [Catalytic activity/Vol] 12 U/L Normal <=34 [facility] Comment on above: Performed By: #### L 500.4050, L100.0100, L501.2450 ####[facility] [address] [place], [address] AST [Catalytic activity/Vol] 19 U/L Normal <=31 [facility] Comment on above: Performed By: #### L 500.4050, L100.0100, L501.2450 ####[facility] [address] [place], [address] Bilirubin [Mass/Vol] 0.38 mg/dL Normal 0.00-1.30 [facility] Comment on above: Performed By: #### L 500.4050, L100.0100, L501.2450 ####[facility] [address] [place], [address] BUN/CRE 15.7 RATIO Normal 10-20 [facility] Comment on above: Performed By: #### L 500.4050, L100.0100, L501.2450 ####[facility] [address] [place], [address] Calcium [Mass/Vol] 8.8 mg/dL Normal 7.6-11.0 [facility] Comment on above: Performed By: #### L 500.4050, L100.0100, L501.2450 ####[facility] [address] [place], [address] Chloride [Moles/Vol] 103 mmol/L Normal 98-108 [facility] Comment on above: Performed By: #### L 500.4050, L100.0100, L501.2450 ####[facility] [address] [place], [address] CO2 [Moles/Vol] 23.0 mmol/L Normal 21.0-32.0 [facility] Comment on above: Performed By: #### L 500.4050, L100.0100, L501.2450 ####[facility] [address] [place], [address] Creatinine [Mass/Vol] 0.88 mg/dL Normal 0.70-1.20 [facility] Comment on above: Performed By: #### L 500.4050, L100.0100, L501.2450 ####[facility] [address] [place], [address] ECRCL 39.12 ml/min Low 50-250 [facility] Comment on above: Performed By: #### L 500.4050, L100.0100, L501.2450 ####[facility] [address] [place], [address] GAP 11 Normal 5-15 [facility] Comment on above: Performed By: #### L 500.4050, L100.0100, L501.2450 ####[facility] [address] [place], [address] GFR/1.73 sq M.predicted among non-blacks MDRD (S/P/Bld) [Vol rate/Area] 67 mL/min/{1.73_m2} Normal >60 [facility] Comment on above: Result Comment: mL/m in/1.73m2 CKD-EPI Creatinine Equation (2020) Performed By: #### L 500.4050, L100.0100, L501.2450 ####[facility] [address] [place], [address] Globulin (S) [Mass/Vol] 3.1 g/dL Normal 2.2-4.2 [facility] Comment on above: Performed By: #### L 500.4050, L100.0100, L501.2450 ####[facility] [address] [place], [address] Glucose [Mass/Vol] 108 mg/dL High 70-99 [facility] Comment on above: Performed By: #### L 500.4050, L100.0100, L501.2450 ####[facility] [address] [place], [address] Potassium [Moles/Vol] 4.0 mmol/L Normal 3.3-5.1 [facility] Comment on above: Performed By: #### L 500.4050, L100.0100, L501.2450 ####[facility] [address] [place], [address] Sodium [Moles/Vol] 137 mmol/L Normal 133-145 [facility] Comment on above: Performed By: #### L 500.4050, L100.0100, L501.2450 ####[facility] [address] [place], [address] T PROT 6.9 g/dL Normal 5.9-8.4 [facility] Comment on above: Performed By: #### L 500.4050, L100.0100, L501.2450 ####[facility] [address] [place], [address] Urea nitrogen [Mass/Vol] 14 mg/dL Normal 4-19 [facility] Comment on above: Performed By: #### L 500.4050, L100.0100, L501.2450 ####[facility] [address] [place], [address] Emergency Department Summary on 01-02-2025 Emergency Department Summary Normal [facility] Eosinophil percentageOrdered By: Pablo Watson on 01-02-2025 Eosinophils/100 WBC (Bld) 0.5 % 0-5 [facility] Erythrocyte distribution wid th ratioOrdered By: Pablo Watson on 01-02-2025 Erythrocyte distribution width (RBC) [Ratio] 14.2 % 11.6-14.6 [facility] Erythrocyte distribution wid th standard deviationOrdered By: Pablo Glen Teague on 01-02-2025 Erythrocyte distribution width (RBC) [Ratio] 45.2 fl High 35.1-43.9 [facility] Glomerular filtration rate ( GFR) estimation/1.73 sq m using serum, plasma, or whole bOrdered By: Pablo Watson on 01-02-2025 GFR/1.73 sq M.predicted among non-blacks MDRD (S/P/Bld) [Vol rate/Area] 67 mL/min/{1.73_m2} >60 [facility] Comment on above: mL/min/1.73m2 CKD-EP I Creatinine Equation (2020) Hematocrit Auto (Bld) [Volum e fraction]Ordered By: Pablo Watson on 01-02-2025 Hematocrit (Bld) [Volume fraction] 40.8 % 37-47 [facility] Hemoglobin measurementOrdere d By: Pablo Watson on 01-02-2025 Hemoglobin (Bld) [Mass/Vol] 13.5 g/dL 12.0-15.0 [facility] Immature granulocytes/100 WB C Auto (Bld)Ordered By: Pablo Watson on 01-02-2025 Immature granulocytes/100 WBC (Bld) 0.200 % 0.0-0.9 [facility] Comment on above: IG% - Immature Granu locytes (promyelocytes, myelocytes and metamyelocytes) > 1% indicates that a LEFT SHIFT is Present. Ketones Test strip Ql (U)Ord ered By: Pablo Watson on 01-02-2025 Ketones Ql (U) Negative Negative [facility] Laboratory - Chemistry and C hemistry - challengeOrdered By: Pablo Watson on 01-02-2025 AST [Catalytic activity/Vol] 19 U/L <32 [facility] Lipaseon 01-02-2025 Lipase [Catalytic activity/Vol] 34 U/L Normal 13-75 [facility] Comment on above: Result Comment: Ronna box note:LIPASE revised reference range effective 22.New Lipase methodology. Expected to produce lower valuesthan the previous assay method.NEW Reference Range: 13 - 75 U/L Performed By: #### L 500.4050, L100.0100, L501.2450 ####[facility] [address] [place], [address] Lipase measurementOrdered By : Pablo Watson on 01-02-2025 Lipase [Catalytic activity/Vol] 34 U/L 13-75 [facility] Comment on above: Please note:LIPASE r evised reference range effective 22. New Lipase methodology. Expected to produce lower values than the previous assay method. NEW Reference Range: 13 - 75 U/L MCV (mean corpuscular volume ) determinationOrdered By: Pablo Watson on 01-02-2025 MCV (RBC) [Entitic vol] 87.4 fL 81-99 [facility] Mean corpuscular hemoglobin (MCH) determinationOrdered By: Pablo Watson on 01-02-2025 MCH (RBC) [Entitic mass] 28.9 pg 27.0-32.0 [facility] Mean corpuscular hemoglobin concentration (MCHC) determinationOrdered By: Pablo Watson on 01-02-2025 MCHC (RBC) [Mass/Vol] 33.1 g/dL 32-36 [facility] Mean platelet volume determi nationOrdered By: Pablo Watson on 01-02-2025 Platelet mean volume (Bld) [Entitic vol] 9.1 fL 6.2-12.0 [facility] Microscopic analysis of urin e for red blood cells (RBC)Ordered By: Pablo Watson on 01-02-2025 Microscopic analysis of urine for red blood cells (RBC) 0 SEEN /hpf 0-5 [facility] Monocyte percentageOrdered B y: Pablo Watson on 01-02-2025 Monocytes/100 WBC (Bld) 12.7 % High 0-10 [facility] Mucus LM Ql (Urine sed)Order ed By: Pablo Watson on 01-02-2025 Mucus Ql (Urine sed) 0 SEEN /hpf [facility] Neutrophil percentageOrdered By: Pablo Watson on 01-02-2025 Neutrophils/100 WBC (Bld) 75.9 % High 47-70 [facility] Nitrite Test strip Ql (U)Ord ered By: Pablo Watson on 01-02-2025 Nitrite Ql (U) Negative Negative [facility] Nucleated red blood cell per centageOrdered By: Pablo Watson on 01-02-2025 Nucleated RBC/100 WBC (Bld) [Ratio] 0 % 0-5 [facility] Platelet countOrdered By: Favian Watson on 01-02-2025 Platelets (Bld) [#/Vol] 267 10*3/uL 150-450 [facility] Potassium measurement (mass/ volume)Ordered By: Pablo Watson on 01-02-2025 Potassium (Unsp spec) [Mass/Vol] 4.0 mmol/L 3.3-5.1 [facility] Protein Test strip Ql (U)Ord ered By: Pablo Watson on 01-02-2025 Protein Ql (U) 30 mg/dl High Negative [facility] RBC Auto (Bld) [#/Vol]Ordere d By: Pablo Watson on 01-02-2025 RBC (Bld) [#/Vol] 4.67 10*6/uL 4.2-5.4 [facility] Serum creatinine measurement (mass/volume)Ordered By: Pablo Watson on 01-02-2025 Creatinine [Mass/Vol] 0.88 mg/dL 0.70-1.20 [facility] Serum globulin measurementOr dered By: Pablo Watson on 01-02-2025 Globulin (S) [Mass/Vol] 3.1 g/dL 2.2-4.2 [facility] Serum glucose measurement (m ass/volume)Ordered By: Pablo Watson on 01-02-2025 Glucose [Mass/Vol] 108 mg/dL High 70-99 [facility] Serum or plasma alanine mo otransferase (ALT) measurementOrdered By: Pablo Watson on 01-02-2025 ALT [Catalytic activity/Vol] 12 U/L <35 [facility] Serum or plasma albumin mahnaz urement (mass/volume)Ordered By: Pablo Teague on 01-02-2025 Albumin [Mass/Vol] 3.8 g/dL 3.4-4.8 [facility] Serum or plasma albumin/glob ulin mass ratioOrdered By: Pablo Watson on 01-02-2025 Albumin/Globulin [Mass ratio] 1.2 {ratio} 0.9-2.4 [facility] Serum or plasma alkaline jey sphatase measurementOrdered By: Pablo Watson on 01-02-2025 ALP [Catalytic activity/Vol] 114 U/L High 35-104 [facility] Serum or plasma calcium mahnaz urement (mass/volume)Ordered By: Pablo Teague on 01-02-2025 Calcium [Mass/Vol] 8.8 mg/dL 7.6-11.0 [facility] Serum or plasma urea nitroge n measurement (mass/volume)Ordered By: Pablo Watson on 01-02-2025 Urea nitrogen [Mass/Vol] 14 mg/dL 4-19 [facility] Sodium levelOrdered By: Ezio Watson on 01-02-2025 Sodium [Moles/Vol] 137 mmol/L 133-145 [facility] Squamous epithelial cells de tection in urine sediment by light microscopyOrdered By: Pablo Watson on 01-02-2025 Epithelial cells.squamous LM Ql (Urine sed) 0 SEEN /hpf 5-10 [facility] Total proteinOrdered By: Paul Watson on 01-02-2025 Protein [Mass/Vol] 6.9 g/dL 5.9-8.4 [facility] Urinalysis, Completeon 01-02 BACTERIA 0 SEEN Normal None Seen [facility] Comment on above: Order Comment: JOSE CTOR TO SPECIFY Performed By: #### L 400.0001 ####[facility] [address] [place], [address] EPI,SQUAMOUS 0 SEEN Normal -10 [facility] Comment on above: Order Comment: JOSE CTOR TO SPECIFY Performed By: #### L 400.0001 ####[facility] [address] [place], [address] Mucus Ql (Urine sed) 0 SEEN Normal [facility] Comment on above: Order Comment: JOSE CTOR TO SPECIFY Performed By: #### L 400.0001 ####[facility] [address] [place], [address] RBC 0 SEEN Normal 0-5 [facility] Comment on above: Order Comment: JOSE CTOR TO SPECIFY Performed By: #### L 400.0001 ####[facility] [address] [place], [address] WBC 0 SEEN Normal 0-5 [facility] Comment on above: Order Comment: JOSE CTOR TO SPECIFY Performed By: #### L 400.0001 ####[facility] [address] [place], [address] Urine clarityOrdered By: Paul Watson on 01-02-2025 Clarity (U) Clear Clear [facility] Urine color determinationOrd ered By: Pablo Watson on 01-02-2025 Color (U) Yellow Yellow [facility] Urine glucose detectionOrder ed By: Pablo Watson on 01-02-2025 Glucose Ql (U) Normal mg/dl Normal [facility] Urine leukocyte esterase det ection by dipstickOrdered By: Pablo Watson on 01-02-2025 Leukocyte esterase Test strip Ql (U) Negative Negative [facility] Urine pHOrdered By: Pablo Briscoe on 01-02-2025 pH (U) 6.0 [pH] 5.0 - 8.0 [facility] Urine sediment bacteria coun t by microscopy (number/high power field)Ordered By: Pablo Watson on 01-02-2025 Bacteria LM.HPF (Urine sed) [#/Area] 0 /[HPF] None Seen [facility] Urine specific gravity measu rementOrdered By: Pablo Watson on 01-02-2025 Specific gravity (U) [Rel density] 1.010 1.002-1.030 [facility] Urine urobilinogen measureme ntOrdered By: Pablo Watson on 01-02-2025 Urobilinogen Ql (U) Normal mg/dl Normal [facility] White blood cell (WBC) count Ordered By: Pablo Watson on 01-02-2025 WBC (Bld) [#/Vol] 8.1 10*3/uL 4.4-11.0 [facility] White blood cell countOrdere d By: Pablo Watson on 01-02-2025 White blood cell count 0 SEEN /hpf 0-5 [facility] Absolute lymphocyte countOrd ered By: Hima Tijerina on 12-20-2024 Lymphocytes Auto (Unsp spec) [#/Vol] 1.42 10*3/uL 0.83-4.51 [facility] Absolute neutrophil countOrd ered By: Hima Tijerina on 12-20-2024 Neutrophils (Bld) [#/Vol] 4.5 10*3/uL 2.0-7.7 [facility] Anion gap in Serum or Plasma Ordered By: Hima Tijerina on 12-20-2024 Anion gap [Moles/Vol] 10 mmol/L 5-15 [facility] Automated lymphocyte count a s percentage of total leukocytesOrdered By: Hima Tijerina on 12-20-2024 Lymphocytes/100 WBC Auto (Unsp spec) 19.8 % 19- [facility] BUN/creatinine ratioOrdered By: Hima Tijerina on 12-20-2024 Urea nitrogen/Creatinine [Mass ratio] 16.8 mg/mg 10-20 [facility] Basophil percentageOrdered B y: Hima Tijerina on 12-20-2024 Basophils/100 WBC (Bld) 1.0 % 0-1 [facility] Bilirubin, totalOrdered By: Hima Tijerina on 12-20-2024 Bilirubin [Mass/Vol] 0.58 mg/dL 0.00-1.30 [facility] CBC W/Diff, Automatedon 12-03 Absolute Lymph 1.42 X10 3/uL Normal 0.83-4.51 [facility] Comment on above: Order Comment: HIMA TIJERINA ORDERED A TSH,T4 FREE, CMPDOCTOR SUPPAN ORDERED EVERYTHING ELSE Performed By: #### L 501.9520, L500.4050, L501.9985, L506.0400, L503.0106, L501.5200, L100.0100, L503.6550, L503.6030 ####[facility] [address] [place], [address] Absolute Neut 4.5 X10 3/uL Normal 2.0-7.7 [facility] Comment on above: Order Comment: HIMA TIJERINA ORDERED A TSH,T4 FREE, CMPDOCTOR SUPPAN ORDERED EVERYTHING ELSE Performed By: #### L 501.9520, L500.4050, L501.9985, L506.0400, L503.0106, L501.5200, L100.0100, L503.6550, L503.6030 ####[facility] [address] [place], [address] Basophils/100 WBC (Bld) 1.0 % Normal 0-1 [facility] Comment on above: Order Comment: HIMA TIJERINA ORDERED A TSH,T4 FREE, CMPDOCTOR SUPPAN ORDERED EVERYTHING ELSE Performed By: #### L 501.9520, L500.4050, L501.9985, L506.0400, L503.0106, L501.5200, L100.0100, L503.6550, L503.6030 ####[facility] [address] [place], [address] Eosinophils/100 WBC (Bld) 1.8 % Normal 0-5 [facility] Comment on above: Order Comment: HIMA TIJERINA ORDERED A TSH,T4 FREE, CMPDOCTOR SUPPAN ORDERED EVERYTHING ELSE Performed By: #### L 501.9520, L500.4050, L501.9985, L506.0400, L503.0106, L501.5200, L100.0100, L503.6550, L503.6030 ####[facility] [address] [place], [address] Erythrocyte distribution width (RBC) [Ratio] 14.3 % Normal 11.6-14.6 [facility] Comment on above: Order Comment: HIMA TIJERINA ORDERED A TSH,T4 FREE, CMPDOCTOR SUPPAN ORDERED EVERYTHING ELSE Performed By: #### L 501.9520, L500.4050, L501.9985, L506.0400, L503.0106, L501.5200, L100.0100, L503.6550, L503.6030 ####[facility] [address] [place], [place], [phone] Hematocrit (Bld) [Volume fraction] 42.4 % Normal 37-47 [facility] Comment on above: Order Comment: HIMA TIJERINA ORDERED A TSH,T4 FREE, CMPDOCTOR SUPPAN ORDERED EVERYTHING ELSE Performed By: #### L 501.9520, L500.4050, L501.9985, L506.0400, L503.0106, L501.5200, L100.0100, L503.6550, L503.6030 ####[facility] [address] [place], [place], [id number] Hemoglobin (Bld) [Mass/Vol] 14.0 g/dL Normal 12.0-15.0 [facility] Comment on above: Order Comment: HIMA TIJERINA ORDERED A TSH,T4 FREE, CMPDOCTOR SUPPAN ORDERED EVERYTHING ELSE Performed By: #### L 501.9520, L500.4050, L501.9985, L506.0400, L503.0106, L501.5200, L100.0100, L503.6550, L503.6030 ####[facility] [address] [place], [address] IG% 0.400 Normal 0.0-0.9 [facility] Comment on above: Order Comment: HIMA TIJERINA ORDERED A TSH,T4 FREE, CMPDOCTOR SUPPAN ORDERED EVERYTHING ELSE Result Comment: IG% - Immature Granulocytes (promyelocytes, myelocytes andmetamyelocytes) > 1% indicates that a LEFT SHIFT is Present. Performed By: #### L 501.9520, L500.4050, L501.9985, L506.0400, L503.0106, L501.5200, L100.0100, L503.6550, L503.6030 ####[facility] [address] [place], [address] Lymphocytes/100 WBC (Bld) 19.8 % Normal 19-41 [facility] Comment on above: Order Comment: HIMA TIJERINA ORDERED A TSH,T4 FREE, CMPDOCTOR SUPPAN ORDERED EVERYTHING ELSE Performed By: #### L 501.9520, L500.4050, L501.9985, L506.0400, L503.0106, L501.5200, L100.0100, L503.6550, L503.6030 ####[facility] [address] [place], [address] MCH (RBC) [Entitic mass] 29.1 pg Normal 27.0-32.0 [facility] Comment on above: Order Comment: HIMA TIJERINA ORDERED A TSH,T4 FREE, CMPDOCTOR SUPPAN ORDERED EVERYTHING ELSE Performed By: #### L 501.9520, L500.4050, L501.9985, L506.0400, L503.0106, L501.5200, L100.0100, L503.6550, L503.6030 ####[facility] [address] [place], [address] MCHC (RBC) [Mass/Vol] 33.0 g/dL Normal 32-36 [facility] Comment on above: Order Comment: HIMA TIJERINA ORDERED A TSH,T4 FREE, CMPDOCTOR SUPPAN ORDERED EVERYTHING ELSE Performed By: #### L 501.9520, L500.4050, L501.9985, L506.0400, L503.0106, L501.5200, L100.0100, L503.6550, L503.6030 ####[facility] [address] [place], [address] MCV (RBC) [Entitic vol] 88.1 fL Normal 81-99 [facility] Comment on above: Order Comment: HIMA TIJERINA ORDERED A TSH,T4 FREE, CMPDOCTOR SUPPAN ORDERED EVERYTHING ELSE Performed By: #### L 501.9520, L500.4050, L501.9985, L506.0400, L503.0106, L501.5200, L100.0100, L503.6550, L503.6030 ####[facility] [address] [place], [address] Monocytes/100 WBC (Bld) 14.2 % High 0-10 [facility] Comment on above: Order Comment: HIMA TIJERINA ORDERED A TSH,T4 FREE, CMPDOCTOR SUPPAN ORDERED EVERYTHING ELSE Performed By: #### L 501.9520, L500.4050, L501.9985, L506.0400, L503.0106, L501.5200, L100.0100, L503.6550, L503.6030 ####[facility] [address] [place], [address] Neutrophils/100 WBC (Bld) 62.8 % Normal 47-70 [facility] Comment on above: Order Comment: HIMA TIJERINA ORDERED A TSH,T4 FREE, CMPDOCTOR SUPPAN ORDERED EVERYTHING ELSE Performed By: #### L 501.9520, L500.4050, L501.9985, L506.0400, L503.0106, L501.5200, L100.0100, L503.6550, L503.6030 ####[facility] [address] [place], [address] Nucleated RBC (Bld) [#/Vol] 0 10*3/uL Normal 0-5 [facility] Comment on above: Order Comment: HIMA TIJERINA ORDERED A TSH,T4 FREE, CMPDOCTOR SUPPAN ORDERED EVERYTHING ELSE Performed By: #### L 501.9520, L500.4050, L501.9985, L506.0400, L503.0106, L501.5200, L100.0100, L503.6550, L503.6030 ####[facility] [address] [place], [address] Platelet mean volume (Bld) [Entitic vol] 8.9 fL Normal 6.2-12.0 [facility] Comment on above: Order Comment: HIMA TIJERINA ORDERED A TSH,T4 FREE, CMPDOCTOR SUPPAN ORDERED EVERYTHING ELSE Performed By: #### L 501.9520, L500.4050, L501.9985, L506.0400, L503.0106, L501.5200, L100.0100, L503.6550, L503.6030 ####[facility] [address] [place], [address] Platelets (Bld) [#/Vol] 289 10*3/uL Normal 150-450 [facility] Comment on above: Order Comment: HIMA TIJERINA ORDERED A TSH,T4 FREE, CMPDOCTOR SUPPAN ORDERED EVERYTHING ELSE Performed By: #### L 501.9520, L500.4050, L501.9985, L506.0400, L503.0106, L501.5200, L100.0100, L503.6550, L503.6030 ####[facility] [address] [place], [address] RBC (Bld) [#/Vol] 4.81 10*6/uL Normal 4.2-5.4 [facility] Comment on above: Order Comment: HIMA TIJERINA ORDERED A TSH,T4 FREE, CMPDOCTOR SUPPAN ORDERED EVERYTHING ELSE Performed By: #### L 501.9520, L500.4050, L501.9985, L506.0400, L503.0106, L501.5200, L100.0100, L503.6550, L503.6030 ####[facility] [address] [place], [address] RDW SD 46.3 fl High 35.1-43.9 [facility] Comment on above: Order Comment: HIMA TIJERINA ORDERED A TSH,T4 FREE, CMPDOCTOR SUPPAN ORDERED EVERYTHING ELSE Performed By: #### L 501.9520, L500.4050, L501.9985, L506.0400, L503.0106, L501.5200, L100.0100, L503.6550, L503.6030 ####[facility] [address] [place], [address] WBC (Bld) [#/Vol] 7.2 10*3/uL Normal 4.4-11.0 [facility] Comment on above: Order Comment: HIMA TIJERINA ORDERED A TSH,T4 FREE, CMPDOCTOR SUPPAN ORDERED EVERYTHING ELSE Performed By: #### L 501.9520, L500.4050, L501.9985, L506.0400, L503.0106, L501.5200, L100.0100, L503.6550, L503.6030 ####[facility] [address] [place], [address] CREATININE SERUMon 5 Creatinine Serum - Intl 0.91 [facility] Carbon dioxide, total [Moles /volume] in Central venous bloodOrdered By: Hima Tijerina on 12-20-2024 CO2 [Moles/Vol] 27.6 mmol/L 21.0-32.0 [facility] Chest PA and Lateralon 12-20 Chest PA and Lateral Normal [facility] Chloride assayOrdered By: Antony Tijerina on 12-20-2024 Chloride [Moles/Vol] 99 mmol/L 98-108 [facility] Comprehensive Metabolic Prof ilon 12-20-2024 Albumin [Mass/Vol] 4.2 g/dL Normal 3.4-4.8 [facility] Comment on above: Order Comment: HIMA TIJERINA ORDERED A TSH,T4 FREE, CMPDOCTOR SUPPAN ORDERED EVERYTHING ELSE Performed By: #### L 501.9520, L500.4050, L501.9985, L506.0400, L503.0106, L501.5200, L100.0100, L503.6550, L503.6030 ####[facility] [address] [place], [address] Albumin/Globulin [Mass ratio] 1.3 {ratio} Normal 0.9-2.4 [facility] Comment on above: Order Comment: HIMA TIJERINA ORDERED A TSH,T4 FREE, CMPDOCTOR SUPPAN ORDERED EVERYTHING ELSE Performed By: #### L 501.9520, L500.4050, L501.9985, L506.0400, L503.0106, L501.5200, L100.0100, L503.6550, L503.6030 ####[facility] [address] [place], [address] ALK PHOS 133 U/L High 35-104 [facility] Comment on above: Order Comment: HIMA TIJERINA ORDERED A TSH,T4 FREE, CMPDOCTOR SUPPAN ORDERED EVERYTHING ELSE Performed By: #### L 501.9520, L500.4050, L501.9985, L506.0400, L503.0106, L501.5200, L100.0100, L503.6550, L503.6030 ####[facility] [address] [place], [address] ALT [Catalytic activity/Vol] 17 U/L Normal <=34 [facility] Comment on above: Order Comment: HIMA TIJERINA ORDERED A TSH,T4 FREE, CMPDOCTOR SUPPAN ORDERED EVERYTHING ELSE Performed By: #### L 501.9520, L500.4050, L501.9985, L506.0400, L503.0106, L501.5200, L100.0100, L503.6550, L503.6030 ####[facility] [address] [place], [address] AST [Catalytic activity/Vol] 21 U/L Normal <=31 [facility] Comment on above: Order Comment: HIMA TIJERINA ORDERED A TSH,T4 FREE, CMPDOCTOR SUPPAN ORDERED EVERYTHING ELSE Performed By: #### L 501.9520, L500.4050, L501.9985, L506.0400, L503.0106, L501.5200, L100.0100, L503.6550, L503.6030 ####[facility] [address] [place], [place], [phone] Bilirubin [Mass/Vol] 0.58 mg/dL Normal 0.00-1.30 [facility] Comment on above: Order Comment: HIMA TIJERINA ORDERED A TSH,T4 FREE, CMPDOCTOR SUPPAN ORDERED EVERYTHING ELSE Performed By: #### L 501.9520, L500.4050, L501.9985, L506.0400, L503.0106, L501.5200, L100.0100, L503.6550, L503.6030 ####[facility] [address] [place], [place], [id number] BUN/CRE 16.8 RATIO Normal 10-20 [facility] Comment on above: Order Comment: HIMA TIJERINA ORDERED A TSH,T4 FREE, CMPDOCTOR SUPPAN ORDERED EVERYTHING ELSE Performed By: #### L 501.9520, L500.4050, L501.9985, L506.0400, L503.0106, L501.5200, L100.0100, L503.6550, L503.6030 ####[facility] [address] [place], [address] Calcium [Mass/Vol] 9.2 mg/dL Normal 7.6-11.0 [facility] Comment on above: Order Comment: HIMA TIJERINA ORDERED A TSH,T4 FREE, CMPDOCTOR SUPPAN ORDERED EVERYTHING ELSE Performed By: #### L 501.9520, L500.4050, L501.9985, L506.0400, L503.0106, L501.5200, L100.0100, L503.6550, L503.6030 ####[facility] [address] [place], [address] Chloride [Moles/Vol] 99 mmol/L Normal 98-108 [facility] Comment on above: Order Comment: HIMA TIJERINA ORDERED A TSH,T4 FREE, CMPDOCTOR SUPPAN ORDERED EVERYTHING ELSE Performed By: #### L 501.9520, L500.4050, L501.9985, L506.0400, L503.0106, L501.5200, L100.0100, L503.6550, L503.6030 ####[facility] [address] [place], [address] CO2 [Moles/Vol] 27.6 mmol/L Normal 21.0-32.0 [facility] Comment on above: Order Comment: HIMA TIJERINA ORDERED A TSH,T4 FREE, CMPDOCTOR SUPPAN ORDERED EVERYTHING ELSE Performed By: #### L 501.9520, L500.4050, L501.9985, L506.0400, L503.0106, L501.5200, L100.0100, L503.6550, L503.6030 ####[facility] [address] [place], [address] Creatinine [Mass/Vol] 0.91 mg/dL Normal 0.70-1.20 [facility] Comment on above: Order Comment: HIMA TIJERINA ORDERED A TSH,T4 FREE, CMPDOCTOR SUPPAN ORDERED EVERYTHING ELSE Performed By: #### L 501.9520, L500.4050, L501.9985, L506.0400, L503.0106, L501.5200, L100.0100, L503.6550, L503.6030 ####[facility] [address] [place], [address] GAP 10 Normal 5-15 [facility] Comment on above: Order Comment: HIMA TIJERINA ORDERED A TSH,T4 FREE, CMPDOCTOR SUPPAN ORDERED EVERYTHING ELSE Performed By: #### L 501.9520, L500.4050, L501.9985, L506.0400, L503.0106, L501.5200, L100.0100, L503.6550, L503.6030 ####[facility] [address] [place], [place], [phone] GFR/1.73 sq M.predicted among non-blacks MDRD (S/P/Bld) [Vol rate/Area] 64 mL/min/{1.73_m2} Normal >60 [facility] Comment on above: Order Comment: HIMA TIJERINA ORDERED A TSH,T4 FREE, CMPDOCTOR SUPPAN ORDERED EVERYTHING ELSE Result Comment: mL/m in/1.73m2 CKD-EPI Creatinine Equation (2020) Performed By: #### L 501.9520, L500.4050, L501.9985, L506.0400, L503.0106, L501.5200, L100.0100, L503.6550, L503.6030 ####[facility] [address] [place], [place], [phone] Globulin (S) [Mass/Vol] 3.3 g/dL Normal 2.2-4.2 [facility] Comment on above: Order Comment: HIMA TIJERINA ORDERED A TSH,T4 FREE, CMPDOCTOR SUPPAN ORDERED EVERYTHING ELSE Performed By: #### L 501.9520, L500.4050, L501.9985, L506.0400, L503.0106, L501.5200, L100.0100, L503.6550, L503.6030 ####[facility] [address] [place], [address] Glucose [Mass/Vol] 112 mg/dL High 70-99 [facility] Comment on above: Order Comment: HIMA TIJERINA ORDERED A TSH,T4 FREE, CMPDOCTOR SUPPAN ORDERED EVERYTHING ELSE Performed By: #### L 501.9520, L500.4050, L501.9985, L506.0400, L503.0106, L501.5200, L100.0100, L503.6550, L503.6030 ####[facility] [address] [place], [place], [phone]) Potassium [Moles/Vol] 3.7 mmol/L Normal 3.3-5.1 [facility] Comment on above: Order Comment: HIMA TIJERINA ORDERED A TSH,T4 FREE, CMPDOCTOR SUPPAN ORDERED EVERYTHING ELSE Performed By: #### L 501.9520, L500.4050, L501.9985, L506.0400, L503.0106, L501.5200, L100.0100, L503.6550, L503.6030 ####[facility] [address] [place], [address] Sodium [Moles/Vol] 137 mmol/L Normal 133-145 [facility] Comment on above: Order Comment: HIMA TIJERINA ORDERED A TSH,T4 FREE, CMPDOCTOR SUPPAN ORDERED EVERYTHING ELSE Performed By: #### L 501.9520, L500.4050, L501.9985, L506.0400, L503.0106, L501.5200, L100.0100, L503.6550, L503.6030 ####[facility] [address] [place], [address] T PROT 7.5 g/dL Normal 5.9-8.4 [facility] Comment on above: Order Comment: HIMA TIJERINA ORDERED A TSH,T4 FREE, CMPDOCTOR SUPPAN ORDERED EVERYTHING ELSE Performed By: #### L 501.9520, L500.4050, L501.9985, L506.0400, L503.0106, L501.5200, L100.0100, L503.6550, L503.6030 ####[facility] [address] [place], [address] Urea nitrogen [Mass/Vol] 15 mg/dL Normal 4-19 [facility] Comment on above: Order Comment: HIMA TIJERINA ORDERED A TSH,T4 FREE, CMPDOCTOR SUPPAN ORDERED EVERYTHING ELSE Performed By: #### L 501.9520, L500.4050, L501.9985, L506.0400, L503.0106, L501.5200, L100.0100, L503.6550, L503.6030 ####[facility] [address] [place], [address] Eosinophil percentageOrdered By: Hima Tijerina on 12-20-2024 Eosinophils/100 WBC (Bld) 1.8 % 0-5 [facility] Erythrocyte distribution wid th ratioOrdered By: Hima Tijerina on 12-20-2024 Erythrocyte distribution width (RBC) [Ratio] 14.3 % 11.6-14.6 [facility] Erythrocyte distribution wid th standard deviationOrdered By: Hima Tijerina on 12-20-2024 Erythrocyte distribution width (RBC) [Ratio] 46.3 fl High 35.1-43.9 [facility] Ferritinon 12-20-2024 Ferritin [Mass/Vol] 35 ng/mL Normal 22-378 [facility] Comment on above: Order Comment: HIMA TIJERINA ORDERED A TSH,T4 FREE, CMPDOCTOR SUPPAN ORDERED EVERYTHING ELSE Performed By: #### L 501.9520, L500.4050, L501.9985, L506.0400, L503.0106, L501.5200, L100.0100, L503.6550, L503.6030 ####[facility] [address] [place], [place], [phone] Glomerular filtration rate ( GFR) estimation/1.73 sq m using serum, plasma, or whole bOrdered By: Hima Tijerina on 12-20-2024 GFR/1.73 sq M.predicted among non-blacks MDRD (S/P/Bld) [Vol rate/Area] 64 mL/min/{1.73_m2} >60 [facility] Comment on above: mL/min/1.73m2 CKD-EP I Creatinine Equation (2020) Hematocrit Auto (Bld) [Volum e fraction]Ordered By: Hima Tijerina on 12-20-2024 Hematocrit (Bld) [Volume fraction] 42.4 % 37-47 [facility] Hemoglobin A1con 12-20-2024 HbA1c (Bld) [Mass fraction] 5.9 % High <=5.6 [facility] Comment on above: Order Comment: HIMA TIJERINA ORDERED A TSH,T4 FREE, CMPDOCTOR SUPPAN ORDERED EVERYTHING ELSE Result Comment: Norm al < 5.7 % Prediabetic 5.7 - 6.4 % Diabetic >or= 6.5 % Please note range changes. Performed By: #### L 501.9520, L500.4050, L501.9985, L506.0400, L503.0106, L501.5200, L100.0100, L503.6550, L503.6030 ####[facility] [address] [place], [place], [id number] Hemoglobin A1c percentageOrd ered By: Hima Tijerina on 12-20-2024 HbA1c (Bld) [Mass fraction] 5.9 % High <5.7 [facility] Comment on above: Normal < 5.7 % Predi abetic 5.7 - 6.4 % Diabetic >or= 6.5 % Please note range changes. Hemoglobin measurementOrdere d By: Hima Tijerina on 12-20-2024 Hemoglobin (Bld) [Mass/Vol] 14.0 g/dL 12.0-15.0 [facility] Immature granulocytes/100 WB C Auto (Bld)Ordered By: Hima Tijerina on 12-20-2024 Immature granulocytes/100 WBC (Bld) 0.400 % 0.0-0.9 [facility] Comment on above: IG% - Immature Granu locytes (promyelocytes, myelocytes and metamyelocytes) > 1% indicates that a LEFT SHIFT is Present. Iron measurement (mass/mass) Ordered By: Hima Jesse on 12-20-2024 Iron (Unsp spec) [Mass/Mass] 58 ug/dL 50-170 [facility] Iron+Iron Binding Capacityon 12-20-2024 Iron [Mass/Vol] 58 ug/dL Normal 50-170 [facility] Comment on above: Order Comment: HIMA TIJERINA ORDERED A TSH,T4 FREE, CMPDOCTOR SUPPAN ORDERED EVERYTHING ELSE Performed By: #### L 501.9520, L500.4050, L501.9985, L506.0400, L503.0106, L501.5200, L100.0100, L503.6550, L503.6030 ####[facility] [address] [place], [place], [phone] IRON SATURATION 15.0 Normal 13-59 [facility] Comment on above: Order Comment: HIMA TIJERINA ORDERED A TSH,T4 FREE, CMPDOCTOR SUPPAN ORDERED EVERYTHING ELSE Performed By: #### L 501.9520, L500.4050, L501.9985, L506.0400, L503.0106, L501.5200, L100.0100, L503.6550, L503.6030 ####[facility] [address] [place], [place], [id number] TIBC 393 ug/dL Normal 250-450 [facility] Comment on above: Order Comment: HIMA TIJERINA ORDERED A TSH,T4 FREE, CMPDOCTOR SUPPAN ORDERED EVERYTHING ELSE Performed By: #### L 501.9520, L500.4050, L501.9985, L506.0400, L503.0106, L501.5200, L100.0100, L503.6550, L503.6030 ####[facility] [address] [place], [address] UIBC 335 ug/dL Normal 228-428 [facility] Comment on above: Order Comment: HIMA TIJERINA ORDERED A TSH,T4 FREE, CMPDOCTOR SUPPAN ORDERED EVERYTHING ELSE Performed By: #### L 501.9520, L500.4050, L501.9985, L506.0400, L503.0106, L501.5200, L100.0100, L503.6550, L503.6030 ####[facility] [address] [place], [place], [phone] Laboratory - Chemistry and C hemistry - challengeOrdered By: Hima Tijerina on 12-20-2024 AST [Catalytic activity/Vol] 21 U/L <32 [facility] MCV (mean corpuscular volume ) determinationOrdered By: Hima Tijerina on 12-20-2024 MCV (RBC) [Entitic vol] 88.1 fL 81-99 [facility] Magnesiumon 12-20-2024 Magnesium [Mass/Vol] 2.2 mg/dL Normal 1.5-2.2 [facility] Comment on above: Order Comment: HIMA TIJERINA ORDERED A TSH,T4 FREE, CMPDOCTOR SUPPAN ORDERED EVERYTHING ELSE Performed By: #### L 501.9520, L500.4050, L501.9985, L506.0400, L503.0106, L501.5200, L100.0100, L503.6550, L503.6030 ####[facility] [address] [place], [place], [phone] Magnesium measurement (mass/ volume)Ordered By: Hima Tijerina on 12-20-2024 Magnesium (Unsp spec) [Mass/Vol] 2.2 mg/dL 1.5-2.2 [facility] Mean corpuscular hemoglobin (MCH) determinationOrdered By: Hima Tijerina on 12-20-2024 MCH (RBC) [Entitic mass] 29.1 pg 27.0-32.0 [facility] Mean corpuscular hemoglobin concentration (MCHC) determinationOrdered By: Hima Tijerina on 12-20-2024 MCHC (RBC) [Mass/Vol] 33.0 g/dL 32-36 [facility] Mean platelet volume determi nationOrdered By: Hima Tijerina on 12-20-2024 Platelet mean volume (Bld) [Entitic vol] 8.9 fL 6.2-12.0 [facility] Monocyte percentageOrdered B y: Hima Tijerina on 12-20-2024 Monocytes/100 WBC (Bld) 14.2 % High 0-10 [facility] Neutrophil percentageOrdered By: Hima Tijerina on 12-20-2024 Neutrophils/100 WBC (Bld) 62.8 % 47-70 [facility] No Panel Informationon 12-20 [facility] No Panel InformationOrdered By: Hima Tijerina on 12-20-2024 Unsaturated Iron Binding Capacity 335 ug/dL 228-428 [facility] Nucleated red blood cell per centageOrdered By: Hima Tijerina on 12-20-2024 Nucleated RBC/100 WBC (Bld) [Ratio] 0 % 0-5 [facility] Platelet countOrdered By: Antony Tijerina on 12-20-2024 Platelets (Bld) [#/Vol] 289 10*3/uL 150-450 [facility] Potassium measurement (mass/ volume)Ordered By: Hima Tijerina on 12-20-2024 Potassium (Unsp spec) [Mass/Vol] 3.7 mmol/L 3.3-5.1 [facility] RBC Auto (Bld) [#/Vol]Ordere d By: Hima Tijerina on 12-20-2024 RBC (Bld) [#/Vol] 4.81 10*6/uL 4.2-5.4 [facility] Serum creatinine measurement (mass/volume)Ordered By: Hima Tijerina on 12-20-2024 Creatinine [Mass/Vol] 0.91 mg/dL 0.70-1.20 [facility] Serum globulin measurementOr dered By: Hima Tijerina on 12-20-2024 Globulin (S) [Mass/Vol] 3.3 g/dL 2.2-4.2 [facility] Serum glucose measurement (m ass/volume)Ordered By: Hima Tijerina on 12-20-2024 Glucose [Mass/Vol] 112 mg/dL High 70-99 [facility] Serum or plasma alanine mo otransferase (ALT) measurementOrdered By: Hima Tijerina on 12-20-2024 ALT [Catalytic activity/Vol] 17 U/L <35 [facility] Serum or plasma albumin mahnaz urement (mass/volume)Ordered By: Hima Tijerina on 12-20-2024 Albumin [Mass/Vol] 4.2 g/dL 3.4-4.8 [facility] Serum or plasma albumin/glob ulin mass ratioOrdered By: Hima Tijerina on 12-20-2024 Albumin/Globulin [Mass ratio] 1.3 {ratio} 0.9-2.4 [facility] Serum or plasma alkaline jey sphatase measurementOrdered By: Hima Tijerina on 12-20-2024 ALP [Catalytic activity/Vol] 133 U/L High 35-104 [facility] Serum or plasma calcium mahnaz urement (mass/volume)Ordered By: Hima Tijerina on 12-20-2024 Calcium [Mass/Vol] 9.2 mg/dL 7.6-11.0 [facility] Serum or plasma ferritin mimi surement (mass/volume)Ordered By: Hima Tijerina on 12-20-2024 Ferritin [Mass/Vol] 35 ng/mL 22-378 [facility] Serum or plasma iron saturat ion measurement (mass fraction)Ordered By: Hima Tijerina on 12-20-2024 Iron saturation [Mass fraction] 15.0 % 13-59 [facility] Serum or plasma urea nitroge n measurement (mass/volume)Ordered By: Hima Tijerina on 12-20-2024 Urea nitrogen [Mass/Vol] 15 mg/dL 4-19 [facility] Sodium levelOrdered By: Hetal Tijerina on 12-20-2024 Sodium [Moles/Vol] 137 mmol/L 133-145 [facility] T4 Free Directon 12-20-2024 T4 FREE DIRECT 1.70 ng/dL High 0.76-1.46 [facility] Comment on above: Order Comment: HIMA TIJERINA ORDERED A TSH,T4 FREE, CMPDOCTOR SUPPAN ORDERED EVERYTHING ELSE Performed By: #### L 501.9520, L500.4050, L501.9985, L506.0400, L503.0106, L501.5200, L100.0100, L503.6550, L503.6030 ####[facility] [address] [place], [place], [phone] T4 freeOrdered By: Hima suazo on 12-20-2024 Free T4 [Mass/Vol] 1.70 ng/dL High 0.76-1.46 [facility] TSH (EXTERNAL)on 12-20-2024 TSH Qn 1.030 m[IU]/L [facility] TSH DL <= 0.005 mIU/L QnOrde red By: Hima Tijerina on 12-20-2024 TSH Qn 1.030 uIU/mL 0.300-4.200 [facility] Thyroid Stim Hormone (TSH)on 12-20-2024 TSH 1.030 uIU/mL Normal 0.300-4.200 [facility] Comment on above: Order Comment: HIMA TIJERINA ORDERED A TSH,T4 FREE, CMPDOCTOR SUPPAN ORDERED EVERYTHING ELSE Performed By: #### L 501.9520, L500.4050, L501.9985, L506.0400, L503.0106, L501.5200, L100.0100, L503.6550, L503.6030 ####[facility] [address] [place], [place], [phone] Total proteinOrdered By: Sebastian Tijerina on 12-20-2024 Protein [Mass/Vol] 7.5 g/dL 5.9-8.4 [facility] Vitamin B12on 12-20-2024 Cobalamin (Vitamin B12) [Mass/Vol] 381 pg/mL Normal 180-914 [facility] Comment on above: Order Comment: HIMA TIJERINA ORDERED A TSH,T4 FREE, CMPDOCTOR SUPPAN ORDERED EVERYTHING ELSE Performed By: #### L 501.9520, L500.4050, L501.9985, L506.0400, L503.0106, L501.5200, L100.0100, L503.6550, L503.6030 ####[facility] [address] [place], [place], [phone] Vitamin B12 ser/plasOrdered By: Hima Tijerina on 07-18-2025 Cobalamin (Vitamin B12) [Mass/Vol] 381 pg/mL 180-914 [facility] White blood cell (WBC) count Ordered By: Hima Tijerina on 12-20-2024 WBC (Bld) [#/Vol] 7.2 10*3/uL 4.4-11.0 [facility] Cardiology Visit Reporton Cardiology Visit Report Normal [facility] Thyroidon 07-16-2024 Thyroid Normal [facility] CBC W Auto Differential pane l (Bld)on 05-10-2023 Basophils (Bld) [#/Vol] 0.07 10*3/uL <0.11 k/uL [facility] Basophils/100 WBC (Bld) 0.9 % [facility] Differential cell count method Nom (Bld) Auto [facility] Eosinophils (Bld) [#/Vol] 0.13 10*3/uL <0.46 k/uL [facility] Eosinophils/100 WBC (Bld) 1.7 % [facility] Erythrocyte distribution width (RBC) [Ratio] 15.8 % High 11.5 - 15.0 % [facility] Hematocrit (Bld) [Volume fraction] 43.2 % 36.0 - 46.0 % [facility] Hemoglobin (Bld) [Mass/Vol] 13.5 g/dL 11.5 - 15.5 g/dL [facility] Immature granulocytes (Bld) [#/Vol] 0.03 10*3/uL <0.10 k/uL [facility] Immature granulocytes/100 WBC (Bld) 0.4 % [facility] Lymphocytes (Bld) [#/Vol] 1.29 10*3/uL 1.00 - 4.00 k/uL [facility] Lymphocytes/100 WBC (Bld) 16.7 % [facility] MCH (RBC) [Entitic mass] 28.6 pg 26. 0 - 34.0 pg [facility] MCHC (RBC) [Mass/Vol] 31.3 g/dL 30.5 - 36.0 g/dL [facility] MCV (RBC) [Entitic vol] 91.5 fL 80.0 - 100.0 fL [facility] Monocytes (Bld) [#/Vol] 1.13 10*3/uL High <0.87 k/uL [facility] Monocytes/100 WBC (Bld) 14.7 % [facility] Neutrophils (Bld) [#/Vol] 5.06 10*3/uL 1.45 - 7.50 k/uL [facility] Neutrophils/100 WBC (Bld) 65.6 % [facility] Nucleated RBC (Bld) [#/Vol] <0.01 k/uL [facility] Nucleated RBC/100 WBC (Bld) [Ratio] 0.0 /100 WBC [facility] Platelet mean volume (Bld) [Entitic vol] 9.8 fL 9.0 - 12.7 fL [facility] Platelets (Bld) [#/Vol] 328 10*3/uL 150 - 400 k/uL [facility] RBC (Bld) [#/Vol] 4.72 10*6/uL 3.90 - 5.2 0 m/uL [facility] WBC (Bld) [#/Vol] 7.71 10*3/uL 3.70 - 11. 00 k/uL [facility] CNPNon 05-10-2023 CNPN Telephone (AGGASTW) LIBRA CEJA ([id number]) 1945 F Date Time Provider Department 05/10/23 JANNET EVANS AGGVIVIANA During your visit today, we recorded the following information about you: Heena Davidson 05/10/2023 3:06 PM Signed First call made to reschedule tomorrow's appointment with Jannet Evans @ 2:30 PM, [facility]. Heena Davidson May 10, 2023 3:06 [...] [R09.02] 06/23/2021 (more content not included)... Normal [facility] Laboratory - CoagulationOrde red By: Abimael Evans on 02-14-2023 INR Coag (Bld) [Relative time] 1.6 {INR} [facility] Comment on above: Critical Value > 4.0 Whole blood prothrombin time Ordered By: Abimael Evans on 02-14-2023 PT Coag (Bld) [Time] 17.9 s 11.7-14.9 [facility] CBC W Auto Differential pane l (Bld)on 11-08-2022 Basophils (Bld) [#/Vol] 0.08 10*3/uL <0.11 k/uL [facility] Basophils/100 WBC (Bld) 1.0 % [facility] Differential cell count method Nom (Bld) Auto [facility] Eosinophils (Bld) [#/Vol] 0.22 10*3/uL <0.46 k/uL [facility] Eosinophils/100 WBC (Bld) 2.7 % [facility] Erythrocyte distribution width (RBC) [Ratio] 17.0 % High 11.5 - 15.0 % [facility] Hematocrit (Bld) [Volume fraction] 37.9 % 36.0 - 46.0 % [facility] Hemoglobin (Bld) [Mass/Vol] 11.5 g/dL 11.5 - 15.5 g/dL [facility] Immature granulocytes (Bld) [#/Vol] 0.03 10*3/uL <0.10 k/uL [facility] Immature granulocytes/100 WBC (Bld) 0.4 % [facility] Lymphocytes (Bld) [#/Vol] 1.88 10*3/uL 1.00 - 4.00 k/uL [facility] Lymphocytes/100 WBC (Bld) 23.3 % [facility] MCH (RBC) [Entitic mass] 23.9 pg Low 26. 0 - 34.0 pg [facility] MCHC (RBC) [Mass/Vol] 30.3 g/dL Low 30.5 - 36.0 g/dL [facility] MCV (RBC) [Entitic vol] 78.8 fL Low 80.0 - 100.0 fL [facility] Monocytes (Bld) [#/Vol] 1.29 10*3/uL High <0.87 k/uL [facility] Monocytes/100 WBC (Bld) 16.0 % [facility] Neutrophils (Bld) [#/Vol] 4.56 10*3/uL 1.45 - 7.50 k/uL [facility] Neutrophils/100 WBC (Bld) 56.6 % [facility] Nucleated RBC (Bld) [#/Vol] <0.01 k/uL [facility] Nucleated RBC/100 WBC (Bld) [Ratio] 0.0 /100 WBC [facility] Platelet mean volume (Bld) [Entitic vol] 9.1 fL 9.0 - 12.7 fL [facility] Platelets (Bld) [#/Vol] 370 10*3/uL 150 - 400 k/uL [facility] RBC (Bld) [#/Vol] 4.81 10*6/uL 3.90 - 5.2 0 m/uL [facility] WBC (Bld) [#/Vol] 8.06 10*3/uL 3.70 - 11. 00 k/uL [facility] No Panel Informationon 10-20 [facility] XR Abdomen Supine and Uprigh ton 2022 IMPRESSION: Nonobstructive bowel gas pattern. Typewriter Ribbon Winder: USMAN Transcribe Date/Time: 2022 11:52A Dictated by : SCOTT ASIF MD This examination was interpreted and the report reviewed and electronically signed by: SCOTT ASIF MD on 2022 11:55AM EST DIVISION OF RADIOLOGY * * *Final [...] spine and hips. DIVISION OF RADIOLOGY Provider, [facility] - 2022 * * *Final Report* * [...] hips. IMPRESSION IMPRESSION: Nonobstructive bowel gas pattern. Typewriter Ribbon Winder: USMAN Transcribe Date/Time: 2022 11:52A Dictated by : SCOTT ASIF MD This examination was interpreted and the report reviewed and electronically signed by: SCOTT ASIF MD on 2022 11:55AM EST [facility] XR Abdomen Supine and Uprigh tOrdered By: [facility] Provider on 2022 [facility] CBC W Auto Differential pane l (Bld)on 09-19-2022 Basophils (Bld) [#/Vol] 0.08 10*3/uL <0.11 k/uL [facility] Basophils/100 WBC (Bld) 0.8 % [facility] Differential cell count method Nom (Bld) Auto [facility] Eosinophils (Bld) [#/Vol] 0.14 10*3/uL <0.46 k/uL [facility] Eosinophils/100 WBC (Bld) 1.4 % [facility] Erythrocyte distribution width (RBC) [Ratio] 17.3 % High 11.5 - 15.0 % [facility] Hematocrit (Bld) [Volume fraction] 39.9 % 36.0 - 46.0 % [facility] Hemoglobin (Bld) [Mass/Vol] 12.2 g/dL 11.5 - 15.5 g/dL [facility] Immature granulocytes (Bld) [#/Vol] 0.06 10*3/uL <0.10 k/uL [facility] Immature granulocytes/100 WBC (Bld) 0.6 % [facility] Lymphocytes (Bld) [#/Vol] 1.82 10*3/uL 1.00 - 4.00 k/uL [facility] Lymphocytes/100 WBC (Bld) 18.3 % [facility] MCH (RBC) [Entitic mass] 24.3 pg Low 26. 0 - 34.0 pg [facility] MCHC (RBC) [Mass/Vol] 30.6 g/dL 30.5 - 36.0 g/dL [facility] MCV (RBC) [Entitic vol] 79.3 fL Low 80.0 - 100.0 fL [facility] Monocytes (Bld) [#/Vol] 1.44 10*3/uL High <0.87 k/uL [facility] Monocytes/100 WBC (Bld) 14.5 % [facility] Neutrophils (Bld) [#/Vol] 6.42 10*3/uL 1.45 - 7.50 k/uL [facility] Neutrophils/100 WBC (Bld) 64.4 % [facility] Nucleated RBC (Bld) [#/Vol] <0.01 k/uL [facility] Nucleated RBC/100 WBC (Bld) [Ratio] 0.0 /100 WBC [facility] Platelet mean volume (Bld) [Entitic vol] 8.9 fL Low 9.0 - 12.7 fL [facility] Platelets (Bld) [#/Vol] 422 10*3/uL High 150 - 400 k/uL [facility] RBC (Bld) [#/Vol] 5.03 10*6/uL 3.90 - 5.2 0 m/uL [facility] WBC (Bld) [#/Vol] 9.96 10*3/uL 3.70 - 11. 00 k/uL [facility] XR Abdomen Supine and Uprigh ton 09-19-2022 Radiology Study observation (narrative) [facility] US ABDOMEN COMPLETEon 2022 [facility] MRI THORACIC SPINE WO IVCONo n 08-18-2022 [facility] XR Thoracic spine AP and Lat eral and [place]imm[place] 07-19-2022 IMPRESSION: T9 vertebral body compression deformity/age indeterminate fracture. Typewriter Ribbon Winder: PSCMarly Transcribe Date/Time: Jul 19 2022 2:16P Dictated by : SCOTT ASIF MD This examination was interpreted and the report reviewed and electronically signed by: SCOTT ASIF MD on Jul 19 2022 2:19PM [facility] DIVISION OF RADIOLOGY * * *Final [...] thickening is noted. DIVISION OF RADIOLOGY Provider, [facility] [place] - 07/19/2022 * * *Final Report* * [...] T9 vertebral body compression deformity/age indeterminate fracture. Typewriter Ribbon Winder[facility] Transcribe Date/Time: Jul 19 2022 2:16P Dictated by : SCOTT ASIF MD This examination was interpreted and the report reviewed and electronically signed by: SCOTT ASIF MD on Jul 19 2022 2:19PM EST [facility] XR Thoracic spine AP and Lat eral and SwimmersOrdered By: Ccf Provider on 07-19-2022 [facility] XR Thoracic spine AP and Lat eral and [place]imm[place] 07-14-2022 Radiology Study observation (narrative) [facility] US THYROID/PARATHYROIDon Radiology Result ACTIONABLE Abnormal [facility] XR RIBS/CHEST 3V AP RIB/OBLS /CXR LEFTon 05-17-2022 [facility] XR Ribs - left Views and Kate st PAon 05-17-2022 IMPRESSION: No radiographic evidence of acute displaced left rib fracture. Small right pleural effusion and/or pleural thickening, slightly decreased when compared with prior study. Typewriter Ribbon Winder: [facility] Transcribe Date/Time: May 17 2022 3:07P Dictated by : CRISTIAN QUILES MD This examination was interpreted and the report reviewed and electronically signed by: CRISTIAN QUILES MD on May 17 2022 3:10PM [facility] DIVISION OF RADIOLOGY * * *Final [...] left rib fracture. DIVISION OF RADIOLOGY Provider, [facility] - 05/17/2022 * * *Final Report* * [...] slightly decreased when compared with prior study. Typewriter Ribbon Winder: PSCB Transcribe Date/Time: May 17 2022 3:07P Dictated by : CRISTIAN QUILES MD This examination was interpreted and the report reviewed and electronically signed by: CRISTIAN QUILES MD on May 17 2022 3:10PM EST [facility] Radiology Study observation (narrative) Iam burgos [facility] XR Ribs - left Views and Kate st PAOrdered By: Ccf Provider on 05-17-2022 [facility] INR in Blood by Coagulation assayOrdered By: Dr. Bonilla on 04-19-2022 INR Coag (Bld) [Relative time] 2.0 {INR} [facility] Laboratory - CoagulationOrde red By: Dr. Bonilla on 04-19-2022 PT Coag (PPP) [Time] 22.1 s 11.7-14.9 [facility] Laboratory - Chemistry and C hemistry - challengeon 03-08-2022 T4 [Mass/Vol] 14.8 ug/dL 4.8-13.9 [facility] Work Phone: No Panel Informationon 03-08 Thyroid Stimulating Hormone (TSH) 1.10 uIU/mL 0.358-3.74 [facility] Work Phone: XR Chest PA and Lateralon IMPRESSION: Grossly stable 2 view chest. Stable right pleural effusion and interstitial infiltrates. Typewriter Ribbon Winder: PSCB Transcribe Date/Time: Feb 11 2022 4:00P Dictated by : HARLEY CINTRON MD This examination was interpreted and the report reviewed and electronically signed by: HARLEY CINTRON MD on Feb 11 2022 4:04PM [facility] DIVISION OF RADIOLOGY * * *Final [...] without acute process. DIVISION OF RADIOLOGY Provider, Mauricio Rivera [facility] - 02/11/2022 * * *Final Report* * [...] Stable right pleural effusion and interstitial infiltrates. Typewriter Ribbon Winder: PSCB Transcribe Date/Time: Feb 11 2022 4:00P Dictated by : HARLEY CINTRON MD This examination was interpreted and the report reviewed and electronically signed by: HARLEY CINTRON MD on Feb 11 2022 4:04PM [facility] Radiology Study observation (narrative) Iam Lacy XR Chest PA and LateralOrder ed By: [facility]cf Provider on 02-11-2022 [facility] INR in Blood by Coagulation assayon 02-09-2022 INR Coag (Bld) [Relative time] 1.9 {INR} [facility] Laboratory - Coagulationon 0 02-09-2022 PT Coag (PPP) [Time] 21.8 s 11.7-14.9 [facility] Work Phone: Absolute lymphocyte counton 01-31-2022 Lymphocytes Auto (Unsp spec) [#/Vol] 1.22 10*3/uL 0.83-4.51 [facility] Work Phone: Basophil percentageon 2021 Basophils/100 WBC (Bld) 0.5 % 0-1 [facility] Work Phone: Chloride [Moles/Vol] 101 mmol/L 98-107 [facility] Work Phone: Eosinophils/100 WBC (Bld) 1.7 % 0-5 [facility] Work Phone: Glucose [Mass/Vol] 103 mg/dL 74-106 [facility] Work Phone: Comment on above: Fasting Glucose resu lt from 100 to 125 mg/dL suggests IMPAIRED HOMEOSTASIS per A.D.A. criteria. Neutrophils (Bld) [#/Vol] 10.5 10*3/uL 2.0-7.7 [facility] Work Phone: Neutrophils/100 WBC (Bld) 72.9 % 47-70 [facility] Work Phone: Potassium [Moles/Vol] 3.6 mmol/L 3.5-5.1 [facility] Work Phone: Sodium [Moles/Vol] 137 mmol/L 136-145 [facility] Work Phone: WBC (Bld) [#/Vol] 14.4 10*3/uL 4.4-11.0 [facility] Work Phone: Blood erythrocytes count (nu mber/volume)on 01-31-2022 RBC (Bld) [#/Vol] 3.80 10*6/uL 4.2-5.4 [facility] Work Phone: Blood hemoglobin measurement (mass/volume)on 01-31-2022 Hemoglobin (Bld) [Mass/Vol] 10.6 g/dL 12.0-15.0 [facility] Work Phone: Blood lymphocytes/100 leukoc yteson 01-31-2022 Lymphocytes/100 WBC (Bld) 8.4 % 19-41 [facility] Work Phone: Blood monocytes/100 leukocyt eson 01-31-2022 Monocytes/100 WBC (Bld) 14.1 % 0-10 [facility] Work Phone: Blood platelet mean volumeon 01-31-2022 Platelet mean volume (Bld) [Entitic vol] 9.1 fL 6.2-12.0 [facility] Work Phone: Determination of erythrocyte mean corpuscular volume (MCV)on 01-31-2022 MCV (RBC) [Entitic vol] 86.1 fL 81-99 [facility] Work Phone: Hematocrit Auto (Bld) [Volum e fraction]on 01-31-2022 Hematocrit (Bld) [Volume fraction] 32.7 % 37-47 [facility] Work Phone: INR in Blood by Coagulation assayon 01-31-2022 INR Coag (Bld) [Relative time] 2.5 {INR} [facility] Work Phone: Laboratory - Chemistry and C hemistry - challengeon 01-31-2022 CO2 [Moles/Vol] 30.0 mmol/L 21.0-32.0 [facility] Work Phone: Urea nitrogen/Creatinine [Mass ratio] 22.9 mg/mg 10-20 [facility] Work Phone: Laboratory - Coagulationon 0 01-31-2022 PT Coag (PPP) [Time] 26.9 s 11.7-14.9 [facility] Work Phone: Laboratory - Hematology and Cell countson 01-31-2022 Anisocytosis Ql (Bld) 1+ [facility] Work [facility]: Erythrocyte distribution width (RBC) [Entitic vol] 47.5 fL 35.1-43.9 [facility] Work Phone: [phone] Erythrocyte distribution width (RBC) [Ratio] 15.0 % 11.6-14.6 [facility] Work Phone: [phone] Immature granulocytes/100 WBC (Bld) 2.400 % 0.0-0.9 [facility] Work Phone: [phone] Comment on above: IG% - Immature Granu locytes (promyelocytes, myelocytes and metamyelocytes) > 1% indicates that a LEFT SHIFT is Present. MCH (RBC) [Entitic mass] 27.9 pg 27.0-32.0 [facility] Work Phone: [phone] Nucleated RBC/100 WBC (Bld) [Ratio] 0 % 0-5 [facility] Work Phone: [phone] MCHC Auto (RBC) [Mass/Vol]on 01-31-2022 MCHC (RBC) [Mass/Vol] 32.4 g/dL 32-36 [facility] Work Phone: [phone] Panel Informationon 01-31 Estimated Creatinine Clearance Calc 36.12 ml/min [facility] Work Phone: [phone] Estimated GFR (MDRD) Amer 122 mL/min >60 [facility] Work Phone: [phone] Comment on above: GFR Calc Estimated GFR (MDRD) Non-Af Amer 101 mL/min >60 [facility] Work Phone: [phone] Comment on above: Non- GFR Calc Platelets bldon 01-31-2022 Platelets (Bld) [#/Vol] 353 10*3/uL 150-450 [facility] Work Phone: [phone] Review by pathologiston - Pathologist review Alfonzo (Unsp spec) [Interp] Janae wilian [facility] Work Phone: [phone] Pathologist review Alfonzo (Unsp spec) [Interp] Reviewed [facility] Work Phone: [phone] Comment on above: Previous reported re sult: Janae cedeno Edited by: JOSE on 02/01/22:0856Neutrophilic leukocytosis with left shift. Normocytic anemia.Clinical correlation necessary.Fabrizio Watson M.D. 02/01/22 AMENDED REPORT 02/01/22 0856 PATH REV previously reported as: October foll Serum or plasma calcium mahnaz urement (mass/volume)on 01-31-2022 Calcium [Mass/Vol] 7.8 mg/dL 8.5-10.1 [facility] Work Phone: Serum or plasma creatinine m easurement (mass/volume)on 01-31-2022 Creatinine [Mass/Vol] 0.61 mg/dL 0.55-1.02 [facility] Work Phone: Comment on above: The validity of the calculated GFR & GFRAA in patients over 70 years has not been determined. Clinical correlation is essential. Serum or plasma urea nitroge n measurement (mass/volume)on 01-31-2022 Urea nitrogen [Mass/Vol] 14 mg/dL 7-18 [facility] Work Phone: Thin prep Papanicolaou smear with manual screeningon 01-31-2022 Thin prep Papanicolaou smear with manual screening 6 5-15 [facility] Work Phone: Blood manual differential co mment interpretation (narrative result)on 01-30-2022 Manual differential comment Alfonzo (Bld) [Interp] SCANNED [facility] Work Phone: Basophil percentageon 2021 Basophil percentage 2.5 mg/dL 2.5-4.9 [facility] Work Phone: Basophil percentageon 2021 Bilirubin [Mass/Vol] 0.70 mg/dL 0.20-1.00 [facility] Work Phone: Comment on above: For patients on eltr ombopag therapy, use of Dimension [place] TBIL is not recommended. Protein [Mass/Vol] 6.7 g/dL 6.4-8.2 [facility] Work Phone: Laboratory - Chemistry and C hemistry - challengeon 01-27-2022 ALP [Catalytic activity/Vol] 73 U/L 45-117 [facility] Work Phone: [phone] ALT [Catalytic activity/Vol] 29 U/L 13-56 [facility] Work Phone: [phone] Free T4 [Mass/Vol] 1.69 ng/dL 0.76-1.46 [facility] Work Phone: [phone] Globulin (S) [Mass/Vol] 4.2 g/dL 2.2-4.2 [facility] Work Phone: [phone] Magnesium [Mass/Vol] 2.1 mg/dL 1.6-2.6 [facility] Work Phone: [phone] Natriuretic peptide B (Bld) [Mass/Vol] 599.1 pg/mL 0-100 [facility] Work Phone: [phone] Panel Informationon 01-27 Free Triiodothyronine (T3) pg/dL 1.2 pg/mL 2.18-3.98 [facility] Work Phone: [phone] Thyroid Stimulating Hormone (TSH) 0.32 uIU/mL 0.358-3.74 [facility] Work Phone: [phone] Serum or plasma albumin mahnaz urement (mass/volume)on 01-27-2022 Albumin [Mass/Vol] 2.5 g/dL 3.2-5.0 [facility] Work Phone: [phone] Serum or plasma albumin/glob ulin mass ratioon 01-27-2022 Albumin/Globulin [Mass ratio] 0.6 {ratio} 0.9-2.4 [facility] Work Phone: [phone] Thin prep Papanicolaou smear with manual screeningon 01-27-2022 Thin prep Papanicolaou smear with manual screening 26 U/L 15-37 [facility] Work Phone: [phone] Basophil percentageon 2021 Basophil percentage 0 SEEN /hpf 0-5 [facility] Work Phone: [phone] Lactate [Moles/Vol] 1.1 mmol/L 0.4-2.0 [facility] Work Phone: Bilirubin Test strip Ql (U)o n 01-26-2022 Bilirubin Ql (U) Negative Negative [facility] Work Phone: [phone] Body fluid appearanceon 01-04 Appearance (Body fld) TURBID [facility] Work Phone: [phone] Body fluid color determinati onon 01-26-2022 Color (Body fld) RED [facility] Work Phone: [phone] Body fluid erythrocytes coun t (number/volume)on 01-26-2022 RBC (Body fld) [#/Vol] 33 10*3/uL [facility] Work Phone: [phone] Body fluid lactate dehydroge nase measurement (enzymatic activity/volume) by pyruvateon 01-26-2022 LDH Pyruvate to lactate reaction (Body fld) [Catalytic activity/Vol] 506 Units/l Not Establ. [facility] Work Phone: [phone] Body fluid leukocytes count (number/volume)on 01-26-2022 WBC (Body fld) [#/Vol] 19.668 10*3/uL [facility] Work Phone: [phone] Body fluid lymphocytes/100 l eukocyteson 01-26-2022 Lymphocytes/100 WBC (Body fld) 16 % [facility] Work Phone: [phone] Body fluid protein measureme nt (mass/volume)on 01-26-2022 Protein (Body fld) [Mass/Vol] 4.7 g/dL Not Establ. [facility] Work Phone: [phone] Body fluid segmented neutrop hils count (number/volume)on 01-26-2022 Segmented neutrophils (Body fld) [#/Vol] 84 % [facility] Work Phone: [phone] Cytology report of Body flui d Cyto stainon 01-26-2022 Cytology report Cyto stain Doc (Body fld) SEE PATHOLOGY REPORT [facility] Work Phone: [phone] Comment on above: Specimen submitted t o Anatomical Pathology Department for testing. Direct bilirubinon Bilirubin.direct [Mass/Vol] 0.25 mg/dL 0.00-0.30 [facility] Work Phone: Ketones Test strip Ql (U)on 01-26-2022 Ketones Ql (U) 5 mg/dl Negative [facility] Work Phone: Laboratory - Coagulationon 0 01-26-2022 aPTT Coag (Bld) [Time] 36.0 s 24.1-36.2 [facility] Work Phone: Mononuclear cells Auto (Body fld) [#/Vol]on 01-26-2022 Mononuclear cells (Body fld) [#/Vol] 3.407 10*3/uL [facility] Work Phone: Mucus LM Ql (Urine sed)on Mucus Ql (Urine sed) 0 SEEN /hpf [facility] Work Phone: Nitrite Test strip Ql (U)on 01-26-2022 Nitrite Ql (U) Negative Negative [facility] Work Phone: No Panel Informationon 01-26 Methicillin-Resist S.aureus DNA PCR Negative Negative [facility] Work Phone: Body Fluid Comment 2 SEE COMMENT [facility] Work Phone: Body Fluid Glucose 39 mg/dL 40-70 [facility] Work Phone: Body Fluid Mononuclear WBCs (%) 17.3 % [facility] Work Phone: Body Fluid Pathologist Comment Reviewed [facility] Work Phone: Comment on above: Previous reported re sult: May follow Edited by: RGOOD on 01/28/22:916Negative for malignant cells.Marked acute inflammation.Fabrizio Watson M.D. 01/28/22 AMENDED REPORT 01/28/22916 PATH COMM/BF previously reported as: May follow Body Fluid Polynuclear WBCs (#) 16.235 10^3/uL [facility] Work Phone: Body Fluid Polynuclear WBCs (%) 82.7 % [facility] Work Phone: D-Dimer Quantitative (PE/DVT) 1.53 FEU/ug/m 0.27-0.49 [facility] Work Phone: [phone] Comment on above: D-Dimer ELEVATED (>0 .49): Additional studies and clinicalassessments are indicated to conclude diagnosis of:Deep Vein Thrombosis (DVT) or Pulmonary Embolism (PE)CRITICAL VALUE VERIFIED. CALLED TO Myah ANDRADE RN ER01/26/22 0619 Eduardo Montes De Oca.RESULTS READ BACK BY SAME. Troponin I High Sensitivity 10 pg/mL 3.0-54.0 [facility] Work Phone: Comment on above: Please Note: New [place] t Units and Gender Specific Reference Ranges. For more information see Policy Stat Procedure [place] High Sensitivity Troponin (TNIH) and attachments. Protein Test strip Ql (U)on 01-26-2022 Protein Ql (U) 30 mg/dl Negative [facility] Work Phone: Specimen source identificati on of body fluidon 01-26-2022 Specimen source Nom (Body fld) THORACENTESIS [facility] Work Phone: [phone] Squamous epithelial cells de tection in urine sediment by light microscopyon 01-26-2022 Epithelial cells.squamous LM Ql (Urine sed) 0-5 SEEN /hpf 5-10 [facility] Work Phone: [phone] Thin prep Papanicolaou smear with manual screeningon 01-26-2022 Thin prep Papanicolaou smear with manual screening 192 U/L 84-246 [facility] Work Phone: [phone] Total cell counton 2 Cells counted Molgen (Bld/Tiss) [#] 19.680 10^3/ul 0.000-0.000 [facility] Work Phone: [phone] Comment on above: This is the Total Nu mber of Nucleated Cell Types in the Body Fluid. Urine blood detectionon 01-04 RBC Ql (U) 10 /ul Negative [facility] Work Phone: [phone] RBC Ql (U) 0-5 SEEN /hpf 0-5 [facility] Work Phone: Urine clarityon 01-26-2022 Clarity (U) Clear Clear [facility] Work Phone: Urine color determinationon 01-26-2022 Color (U) Yellow Yellow [facility] Work Phone: Urine glucose detectionon Glucose Ql (U) Normal mg/dl Normal [facility] Work Phone: Urine leukocyte esterase det ection by dipstickon 01-26-2022 Leukocyte esterase Test strip Ql (U) Negative Negative [facility] Work Phone: Urine pHon 01-26-2022 pH (U) 6.0 [pH] 5.0 - 8.0 [facility] Work Phone: Urine sediment bacteria coun t by microscopy (number/high power field)on 01-26-2022 Bacteria LM.HPF (Urine sed) [#/Area] 0 /[HPF] None Seen [facility] Work Phone: Urine specific gravity measu rementon 01-26-2022 Specific gravity (U) [Rel density] 1.015 1.002-1.030 [facility] Work Phone: Urobilinogen Auto test strip Ql (U)on 01-26-2022 Urobilinogen Ql (U) Normal mg/dl Normal [facility] Work Phone: Basophil percentageon 2021 Bilirubin [Mass/Vol] 0.50 mg/dL 0.20-1.00 [facility] Work Phone: Comment on above: For patients on eltr ombopag therapy, use of Dimension [place] TBIL is not recommended. Protein [Mass/Vol] 8.0 g/dL 6.4-8.2 [facility] Work Phone: Direct bilirubinon Bilirubin.direct [Mass/Vol] 0.14 mg/dL 0.00-0.30 [facility] Work Phone: Laboratory - Chemistry and C hemistry - challengeon 11-08-2021 ALP [Catalytic activity/Vol] 105 U/L 45-117 [facility] Work Phone: ALT [Catalytic activity/Vol] 21 U/L 13-56 [facility] Work Phone: Globulin (S) [Mass/Vol] 4.5 g/dL 2.2-4.2 [facility] Work Phone: Serum or plasma albumin mahnaz urement (mass/volume)on 11-08-2021 Albumin [Mass/Vol] 3.5 g/dL 3.2-5.0 [facility] Work Phone: Thin prep Papanicolaou smear with manual screeningon 11-08-2021 Thin prep Papanicolaou smear with manual screening 22 U/L 15-37 [facility] Work Phone: XR CHEST 2V FRONTAL/LATon [facility] XR Chest PA and Lateralon IMPRESSION: 1. Small to moderate right pleural effusion, decreased in size. 2. No discernible residual left pneumothorax. 3. Prominence of the claudia which may be related vascular in etiology. Typewriter Ribbon Winder: PSCB Transcribe Date/Time: Oct 04 2021 4:29P Dictated by : CRISTIAN QUILES MD This examination was interpreted and the report reviewed and electronically signed by: CRISTIAN QUILES MD on Oct 04 2021 4:31PM EST [facility]_DO_NOT_U SE_DIVISION OF RADIOLOGY * * *Final Report* * [...] of a lower thoracic vertebral body. [facility]DO_NOT_U SE_DIVISION OF RADIOLOGY Provider, Mauricio Mensah - 10/04/2021 * * *Final Report* * [...] which may be related vascular in etiology. Typewriter Ribbon Winder: USMAN Transcribe Date/Time: Oct 04 2021 4:29P Dictated by : CRISTIAN QUILES MD This examination was interpreted and the report reviewed and electronically signed by: CRISTIAN QUILES MD on Oct 04 2021 4:31PM EST [facility] Radiology Study observation (narrative) Iam burgos [facility] XR Chest PA and LateralOrder ed By: Ccf Provider on 10-04-2021 [facility] INR in Blood by Coagulation assayon 09-16-2021 INR Coag (Bld) [Relative time] 1.1 {INR} [facility] Work Phone: Laboratory - Coagulationon 0 09-16-2021 aPTT Coag (Bld) [Time] 29.1 s 24.1-36.2 [facility] Work Phone: PT Coag (PPP) [Time] 14.3 s 11.7-14.9 [facility] Work Phone: Platelets bldon 09-16-2021 Platelets (Bld) [#/Vol] 364 10*3/uL 150-450 [facility] Work Phone: Basophil percentageon 2021 Chloride [Moles/Vol] 101 mmol/L 98-107 [facility] Work Phone: Glucose [Mass/Vol] 118 mg/dL 74-106 [facility] Work Phone: Comment on above: Fasting Glucose resu lt from 100 to 125 mg/dL suggests IMPAIRED HOMEOSTASIS per A.D.A. criteria. Potassium [Moles/Vol] 4.0 mmol/L 3.5-5.1 [facility] Work Phone: [phone] Sodium [Moles/Vol] 135 mmol/L 136-145 [facility] Work Phone: [phone] WBC (Bld) [#/Vol] 10.2 10*3/uL 4.4-11.0 [facility] Work Phone: Blood erythrocytes count (nu mber/volume)on 09-09-2021 RBC (Bld) [#/Vol] 4.67 10*6/uL 4.2-5.4 [facility] Work Phone: Blood hemoglobin measurement (mass/volume)on 09-09-2021 Hemoglobin (Bld) [Mass/Vol] 12.3 g/dL 12.0-15.0 [facility] Work Phone: [phone] Blood platelet mean volumeon 09-09-2021 Platelet mean volume (Bld) [Entitic vol] 8.6 fL 6.2-12.0 [facility] Work Phone: [phone] Determination of erythrocyte mean corpuscular volume (MCV)on 09-09-2021 MCV (RBC) [Entitic vol] 83.9 fL 81-99 [facility] Work Phone: [phone] Hematocrit Auto (Bld) [Volum e fraction]on 09-09-2021 Hematocrit (Bld) [Volume fraction] 39.2 % 37-47 [facility] Work Phone: [phone] Laboratory - Chemistry and C hemistry - challengeon 09-09-2021 CO2 [Moles/Vol] 29.0 mmol/L 21.0-32.0 [facility] Work Phone: [phone] Natriuretic peptide B (Bld) [Mass/Vol] 665.6 pg/mL 0-100 [facility] Work Phone: [phone] Urea nitrogen/Creatinine [Mass ratio] 12.3 mg/mg 10-20 [facility] Work Phone: [phone] Laboratory - Hematology and Cell countson 09-09-2021 Erythrocyte distribution width (RBC) [Entitic vol] 48.8 fL 35.1-43.9 [facility] Work Phone: [phone] Erythrocyte distribution width (RBC) [Ratio] 16.0 % 11.6-14.6 [facility] Work Phone: [phone] MCH (RBC) [Entitic mass] 26.3 pg 27.0-32.0 [facility] Work Phone: [phone] MCHC Auto (RBC) [Mass/Vol]on 09-09-2021 MCHC (RBC) [Mass/Vol] 31.4 g/dL 32-36 [facility] Work Phone: No Panel Informationon 09-09 Estimated GFR (MDRD) Amer 60 mL/min >60 [facility] Work Phone: [phone] Comment on above: GFR Calc Estimated GFR (MDRD) Non-Af Amer 49 mL/min >60 [facility] Work Phone: [phone] Comment on above: Non- GFR Calc Platelets bldon 09-09-2021 Platelets (Bld) [#/Vol] 452 10*3/uL 150-450 [facility] Work Phone: [phone] Serum or plasma calcium mahnaz urement (mass/volume)on 09-09-2021 Calcium [Mass/Vol] 8.6 mg/dL 8.5-10.1 [facility] Work Phone: Serum or plasma creatinine m easurement (mass/volume)on 09-09-2021 Creatinine [Mass/Vol] 1.14 mg/dL 0.55-1.02 [facility] Work Phone: Comment on above: The validity of the calculated GFR & GFRAA in patients over 70 years has not been determined. Clinical correlation is essential. Serum or plasma urea nitroge n measurement (mass/volume)on 09-09-2021 Urea nitrogen [Mass/Vol] 14 mg/dL 7-18 [facility] Work Phone: Thin prep Papanicolaou smear with manual screeningon 09-09-2021 Thin prep Papanicolaou smear with manual screening 5 5-15 [facility] Work Phone: INR in Blood by Coagulation assayon 08-25-2021 INR Coag (Bld) [Relative time] 2.9 {INR} [facility] Laboratory - Coagulationon 0 08-25-2021 PT Coag (PPP) [Time] 29.4 s 11.7-14.9 [facility] Work Phone: XR Chest PA and Lateralon IMPRESSION: Interval slight worsening of right-sided pleural effusion, with atelectasis/infiltrate s in right lung. Left-sided trace/small pleural effusion. Findings are suggestive of pulmonary venous congestion. Typewriter Ribbon Winder: PSCB Transcribe Date/Time: Aug 25 2021 3:34P Dictated by : SCOTT ASIF MD This examination was interpreted and the report reviewed and electronically signed by: SCOTT ASIF MD on Aug 25 2021 3:38PM [facility] DIVISION OF RADIOLOGY * * *Final [...] shows degenerative changes. DIVISION OF RADIOLOGY Provider, [facility] - 08/25/2021 * * *Final Report* * [...] Findings are suggestive of pulmonary venous congestion. Typewriter Ribbon Winder: USMAN Transcribe Date/Time: Aug 25 2021 3:34P Dictated by : SCOTT ASIF MD This examination was interpreted and the report reviewed and electronically signed by: SCOTT ASIF MD on Aug 25 2021 3:38PM EST [facility] Radiology Study observation (narrative) Iam burgos [facility] XR Chest PA and LateralOrder ed By: Ccf Provider on 08-25-2021 [facility] Basophil percentageon 2021 Chloride [Moles/Vol] 99 mmol/L 98-107 [facility] Work Phone: [phone] Glucose [Mass/Vol] 101 mg/dL 74-106 [facility] Work Phone: [phone] Comment on above: Fasting Glucose resu lt from 100 to 125 mg/dL suggests IMPAIRED HOMEOSTASIS per A.D.A. criteria. Potassium [Moles/Vol] 4.1 mmol/L 3.5-5.1 [facility] Work Phone: [phone] Sodium [Moles/Vol] 133 mmol/L 136-145 [facility] Work Phone: [phone] WBC (Bld) [#/Vol] 7.6 10*3/uL 4.4-11.0 [facility] Work Phone: Blood erythrocytes count (nu mber/volume)on 08-05-2021 RBC (Bld) [#/Vol] 4.38 10*6/uL 4.2-5.4 [facility] Work Phone: Blood hemoglobin measurement (mass/volume)on 08-05-2021 Hemoglobin (Bld) [Mass/Vol] 12.7 g/dL 12.0-15.0 [facility] Work Phone: [phone] Blood platelet mean volumeon 08-05-2021 Platelet mean volume (Bld) [Entitic vol] 9.3 fL 6.2-12.0 [facility] Work Phone: [phone] Determination of erythrocyte mean corpuscular volume (MCV)on 08-05-2021 MCV (RBC) [Entitic vol] 88.1 fL 81-99 [facility] Work Phone: [phone] Hematocrit Auto (Bld) [Volum e fraction]on 08-05-2021 Hematocrit (Bld) [Volume fraction] 38.6 % 37-47 [facility] Work Phone: [phone] Laboratory - Chemistry and C hemistry - challengeon 08-05-2021 CO2 [Moles/Vol] 31.0 mmol/L 21.0-32.0 [facility] Work Phone: [phone] Urea nitrogen/Creatinine [Mass ratio] 13.5 mg/mg 10-20 [facility] Work Phone: [phone] Laboratory - Hematology and Cell countson 08-05-2021 Erythrocyte distribution width (RBC) [Entitic vol] 51.9 fL 35.1-43.9 [facility] Work Phone: [phone] Erythrocyte distribution width (RBC) [Ratio] 16.1 % 11.6-14.6 [facility] Work Phone: [phone] MCH (RBC) [Entitic mass] 29.0 pg 27.0-32.0 [facility] Work Phone: [phone] MCHC Auto (RBC) [Mass/Vol]on 08-05-2021 MCHC (RBC) [Mass/Vol] 32.9 g/dL 32-36 [facility] Work Phone: No Panel Informationon 08-05 Anti-Nuclear Antibody Screen Negative Negative [facility] Work Phone: Comment on above: Performed at: [place] [id number] Director: Rob Read PhD, Phone: [phone] Estimated GFR (MDRD) Amer 72 mL/min >60 [facility] Work Phone: [phone] Comment on above: GFR Calc Estimated GFR (MDRD) Non-Af Amer 60 mL/min >60 [facility] Work Phone: [phone] Comment on above: Non- GFR Calc Platelets bldon 08-05-2021 Platelets (Bld) [#/Vol] 458 10*3/uL 150-450 [facility] Work Phone: [phone] Serum or plasma C reactive p rotein measurement (mass/volume)on 08-05-2021 CRP [Mass/Vol] 3.21 mg/L 0.0-3.0 [facility] Work Phone: Comment on above: C-Reactive Protein ( CRP) provides useful information for thediagnosis, therapy and monitoring of inflammatory processesand associated diseases. For the evaluation of Relative Riskfor Cardiovascular Disease, a High Sensitivity CRP (HSCRP)should be ordered. Serum or plasma calcium mahnaz urement (mass/volume)on 08-05-2021 Calcium [Mass/Vol] 8.8 mg/dL 8.5-10.1 [facility] Work Phone: Serum or plasma creatinine m easurement (mass/volume)on 08-05-2021 Creatinine [Mass/Vol] 0.96 mg/dL 0.55-1.02 [facility] Work Phone: Comment on above: The validity of the calculated GFR & GFRAA in patients over 70 years has not been determined. Clinical correlation is essential. Serum or plasma urea nitroge n measurement (mass/volume)on 08-05-2021 Urea nitrogen [Mass/Vol] 13 mg/dL 7-18 [facility] Work Phone: Serum rheumatoid factor dete ctionon 08-05-2021 Rheumatoid factor Ql (S) < 10.0 IU/mL <15 [facility] Work Phone: Thin prep Papanicolaou smear with manual screeningon 08-05-2021 Thin prep Papanicolaou smear with manual screening 3 5-15 [facility] Work Phone: INR in Blood by Coagulation assayon 08-04-2021 INR Coag (Bld) [Relative time] 1.9 {INR} [facility] Work Phone: Laboratory - Coagulationon 0 08-04-2021 PT Coag (PPP) [Time] 21.3 s 11.7-14.9 [facility] Work Phone: PT panel Coag (PPP)on 2021 INR Coag (Bld) [Relative time] 1.5 EXT [facility] INR in Blood by Coagulation assayon 07-28-2021 INR Coag (Bld) [Relative time] 1.2 {INR} [facility] Work Phone: Laboratory - Coagulationon 0 07-28-2021 PT Coag (PPP) [Time] 14.1 s 11.7-14.9 [facility] Work Phone: XR Chest PA and Lateralon IMPRESSION: Stable right pleural effusion. Typewriter Ribbon Winder: PSCB Transcribe Date/Time: Jul 28 2021 2:46P Dictated by : SANTI LÓPEZ MD This examination was interpreted and the report reviewed and electronically signed by: SANTI LÓPEZ MD on Jul 28 2021 2:47PM [facility] DIVISION OF RADIOLOGY * * *Final [...] soft tissues: Unremarkable. DIVISION OF RADIOLOGY Provider, [facility] - 07/28/2021 * * *Final Report* [...] Unremarkable. IMPRESSION IMPRESSION: Stable right pleural effusion. Typewriter Ribbon Winder: PSCB Transcribe Date/Time: Jul 28 2021 2:46P Dictated by : SANTI LÓPEZ MD This examination was interpreted and the report reviewed and electronically signed by: SANTI LÓPEZ MD on Jul 28 2021 2:47PM EST [facility] Radiology Study observation (narrative) Iam burgos [facility] XR Chest PA and LateralOrder ed By: Ccf Provider on 07-28-2021 [facility] INR in Blood by Coagulation assayon 07-21-2021 INR Coag (Bld) [Relative time] 1.2 {INR} [facility] Work Phone: Laboratory - Coagulationon 0 07-21-2021 PT Coag (PPP) [Time] 14.4 s 11.7-14.9 [facility] Work Phone: Absolute lymphocyte counton 07-20-2021 Lymphocytes Auto (Unsp spec) [#/Vol] 1.56 10*3/uL 0.83-4.51 [facility] Work Phone: Basophil percentageon 2021 Basophils/100 WBC (Bld) 0.9 % 0-1 [facility] Work Phone: Chloride [Moles/Vol] 102 mmol/L 98-107 [facility] Work Phone: Eosinophils/100 WBC (Bld) 6.2 % 0-5 [facility] Work Phone: Glucose [Mass/Vol] 90 mg/dL 74-106 [facility] Work Phone: Neutrophils (Bld) [#/Vol] 6.5 10*3/uL 2.0-7.7 [facility] Work Phone: Neutrophils/100 WBC (Bld) 64.1 % 47-70 [facility] Work Phone: Potassium [Moles/Vol] 4.3 mmol/L 3.5-5.1 [facility] Work Phone: Sodium [Moles/Vol] 136 mmol/L 136-145 [facility]: [phone] WBC (Bld) [#/Vol] 10.2 10*3/uL 4.4-11.0 [facility] Work Phone: [phone] Blood erythrocytes count (nu mber/volume)on 07-20-2021 RBC (Bld) [#/Vol] 4.31 10*6/uL 4.2-5.4 [facility] Work Phone: [phone] Blood hemoglobin measurement (mass/volume)on 07-20-2021 Hemoglobin (Bld) [Mass/Vol] 12.1 g/dL 12.0-15.0 [facility] Work Phone: [phone] Blood lymphocytes/100 leukoc yteson 07-20-2021 Lymphocytes/100 WBC (Bld) 15.3 % 19-41 [facility] Work Phone: [phone] Blood monocytes/100 leukocyt eson 07-20-2021 Monocytes/100 WBC (Bld) 12.3 % 0-10 [facility] Work Phone: [phone] Blood platelet mean volumeon 07-20-2021 Platelet mean volume (Bld) [Entitic vol] 9.3 fL 6.2-12.0 [facility] Work Phone: [phone] Determination of erythrocyte mean corpuscular volume (MCV)on 07-20-2021 MCV (RBC) [Entitic vol] 85.8 fL 81-99 [facility] Work Phone: [phone] Hematocrit Auto (Bld) [Volum e fraction]on 07-20-2021 Hematocrit (Bld) [Volume fraction] 37.0 % 37-47 [facility] Work Phone: [phone] Laboratory - Chemistry and C hemistry - challengeon 07-20-2021 CO2 [Moles/Vol] 30.0 mmol/L 21.0-32.0 [facility] Work Phone: [phone] Urea nitrogen/Creatinine [Mass ratio] 14.9 mg/mg 10-20 [facility] Work Phone: [phone] Laboratory - Coagulationon 0 07-20-2021 aPTT Coag (Bld) [Time] 32.3 s 24.1-36.2 [facility] Work Phone: [phone] Laboratory - Hematology and Cell countson 07-20-2021 Erythrocyte distribution width (RBC) [Entitic vol] 49.0 fL 35.1-43.9 [facility] Work Phone: [phone] Erythrocyte distribution width (RBC) [Ratio] 15.8 % 11.6-14.6 [facility] Work Phone: [phone] Immature granulocytes/100 WBC (Bld) 1.200 % 0.0-0.9 [facility] Work Phone: [phone] Comment on above: IG% - Immature Granu locytes (promyelocytes, myelocytes and metamyelocytes) > 1% indicates that a LEFT SHIFT is Present. MCH (RBC) [Entitic mass] 28.1 pg 27.0-32.0 [facility] Work Phone: [phone] Nucleated RBC/100 WBC (Bld) [Ratio] 0 % 0-5 [facility] Work Phone: [phone] MCHC Auto (RBC) [Mass/Vol]on 07-20-2021 MCHC (RBC) [Mass/Vol] 32.7 g/dL 32-36 [facility] Work Phone: [phone] Panel Informationon 07-20 Estimated Creatinine Clearance Calc 39.02 ml/min [facility] Work Phone: [phone] Estimated GFR (MDRD) Amer 74 mL/min >60 [facility] Work Phone: [phone] Comment on above: GFR Calc Estimated GFR (MDRD) Non-Af Amer 61 mL/min >60 [facility] Work Phone: [phone] Comment on above: Non- GFR Calc Platelets bldon 07-20-2021 Platelets (Bld) [#/Vol] 338 10*3/uL 150-450 [facility] Work Phone: [phone] Serum or plasma calcium mahnaz urement (mass/volume)on 07-20-2021 Calcium [Mass/Vol] 8.7 mg/dL 8.5-10.1 [facility] Work Phone: Serum or plasma creatinine m easurement (mass/volume)on 07-20-2021 Creatinine [Mass/Vol] 0.94 mg/dL 0.55-1.02 [facility] Work Phone: Comment on above: The validity of the calculated GFR & GFRAA in patients over 70 years has not been determined. Clinical correlation is essential. Serum or plasma urea nitroge n measurement (mass/volume)on 07-20-2021 Urea nitrogen [Mass/Vol] 14 mg/dL 7-18 [facility] Work Phone: Thin prep Papanicolaou smear with manual screeningon 07-20-2021 Thin prep Papanicolaou smear with manual screening 4 5-15 [facility] Work Phone: Vancomycin troughon 07-18-19 Vancomycin trough [Mass/Vol] 16.8 ug/mL 5.0-15.0 [facility] Work Phone: Comment on above: VANCOMYCIN STANDARED DRUG THERAPY TROUGH LEVEL: 5.0 - 15.0 mg/L VANCOMYCIN HIGH INTENSITY THERAPY TROUGH LEVEL: 15.0 - 20.0 mg/L High Intensity therapy recommended for serious lifethreatening infections include:- Ckkhcaocct-Zxcxosmgxuas-Puhcefdgu (Ventilator/Healtcare Associated)-Sepsis PLEASE CONTACT PHARMACY SERVICES (#5134) FOR INTERPRETATIONOF RESULTS. Blood manual differential co mment interpretation (narrative result)on 07-17-2021 Manual differential comment Alfonzo (Bld) [Interp] SCANNED [facility] Work Phone: Review by pathologiston 07-06 Pathologist review Alfonzo (Unsp spec) [Interp] Reviewed [facility] Work Phone: Comment on above: Previous reported re sult: Janae cedeno Edited by: RGOMARLENA on 07/19/21:1352Neutrophilic leukocytosis.Clinical correlation necessary.Fabrizio Watson M.D. 07/19/21 AMENDED REPORT 07/19/21 1352 PATH REV previously reported as: Janae cedeno Bacteria identified Anaer cx Nom (Unsp spec)on 07-16-2021 Anaerobic microbial culture No anaerobic bacteria isolated. [facility] Work Phone: Basophil percentageon 2021 Protein [Mass/Vol] 7.8 g/dL 6.4-8.2 [place] [facility] Work Phone: Body fluid appearanceon 07-06 Appearance (Body fld) TURBID [facility] [facility] Work Phone: [phone] Body fluid color determinati onon 07-16-2021 Color (Body fld) SLIGHTLY PINK [place] [facility] Work Phone: [phone] Body fluid erythrocytes coun t (number/volume)on 07-16-2021 RBC (Body fld) [#/Vol] 25 10*3/[facility]L [facility] Work Phone: Body fluid lactate dehydroge nase measurement (enzymatic activity/volume) by pyruvateon 07-16-2021 LDH Pyruvate to lactate reaction (Body fld) [Catalytic activity/Vol] 270 Units/l Not Establ. [facility] Work Phone: Body fluid leukocytes count (number/volume)on 07-16-2021 WBC (Body fld) [#/Vol] 1.843 10*3/uL [facility] Work Phone: Body fluid lymphocytes/100 l eukocyteson 07-16-2021 Lymphocytes/100 WBC (Body fld) 62 % [facility] Work Phone: Body fluid macrophage counto n 07-16-2021 Macrophages (Body fld) [#/Vol] 22 % [facility] Work Phone: [phone] Body fluid mesothelial cell percentageon 07-16-2021 Mesothelial cells/100 WBC (Body fld) 9 % [facility] Work Phone: Body fluid protein measureme nt (mass/volume)on 07-16-2021 Protein (Body fld) [Mass/Vol] 4.1 g/dL Not Establ. [facility] Work Phone: Body fluid segmented neutrop hils count (number/volume)on 07-16-2021 Segmented neutrophils (Body fld) [#/Vol] 1 % [facility] Work Phone: Cytology report of Body flui d Cyto stainon 07-16-2021 Cytology report Cyto stain Doc (Body fld) SEE PATHOLOGY REPORT [facility] Work Phone: Comment on above: Specimen submitted t o Anatomical Pathology Department for testing. Gram stain for investigation of transfusion reactionon 07-16-2021 Microscopic observation Gram stain Nom (Unsp spec) [facility] Work Phone: [phone] Laboratory - Chemistry and C hemistry - challengeon 07-16-2021 Globulin (S) [Mass/Vol] 4.8 g/dL 2.2-4.2 [facility] Work Phone: Magnesium [Mass/Vol] 2.0 mg/dL [facility] Work Phone: [phone] Comment on above: Performed at: [address] Director: Rob Read PhD, Phone: [phone] Laboratory - Hematology and Cell countson 07-16-2021 Anisocytosis Ql (Bld) 1+ [facility] Work Phone: [phone] Mononuclear cells Auto (Body fld) [#/Vol]on 07-16-2021 Mononuclear cells (Body fld) [#/Vol] 1.778 10*3/uL [facility] Work Phone: [phone] No Panel Informationon 07-16 Body Fluid Comment 2 SEE COMMENT [facility] Work Phone: [phone] Body Fluid Glucose 130 mg/dL 40-70 [facility] Work Phone: [phone] Comment on above: Previous reported re sult: 129 mg/dLEdited by: AUTOINS on 07/23/21:1509 AMENDED REPORT 07/23/21 1509 GLU,BF previously reported as: 129 H mg/dL Body Fluid Mononuclear WBCs (%) 96.4 % [facility] Work Phone: Body Fluid Pathologist Comment Reviewed [facility] Work Phone: Comment on above: Previous reported re sult: May follow Edited by: JOSE on 07/19/21:1348Negative for malignant cells.Fabrizio Watson M.D. 07/19/21 AMENDED REPORT 07/19/21 1348 PATH COMM/BF previously reported as: May follow Body Fluid Polynuclear WBCs (#) 0.065 10^3/uL [facility] Work Phone: Body Fluid Polynuclear WBCs (%) 3.6 % [facility] Work Phone: Serum or plasma albumin/glob ulin mass ratioon 07-16-2021 Albumin/Globulin [Mass ratio] 0.6 {ratio} 0.9-2.4 [facility] Work Phone: Specimen source identificati on of body fluidon 07-16-2021 Specimen source Nom (Body fld) THORACENTESIS [facility] Work Phone: Thin prep Papanicolaou smear with manual screeningon 07-16-2021 Thin prep Papanicolaou smear with manual screening 6 % [facility] Work Phone: Thin prep Papanicolaou smear with manual screening 922 U/L 84-246 [facility] Work Phone: Total cell counton 2 Cells counted Molgen (Bld/Tiss) [#] 2.040 10^3/ul [facility] Work Phone: Comment on above: This is the Total Nu mber of Nucleated Cell Types in the Body Fluid. Basophil percentageon 2021 Basophil percentage Not Reportable [facility] Work Phone: Basophil percentage 3.0 mg/dL 2.5-4.9 [facility] Work Phone: [phone] Bilirubin [Mass/Vol] 0.80 mg/dL 0.20-1.00 [facility] Work Phone: [phone] Comment on above: For patients on eltr ombopag therapy, use of Dimension [place] TBIL is not recommended. Laboratory - Chemistry and C hemistry - challengeon 07-15-2021 ALP [Catalytic activity/Vol] 93 U/L 45-117 [facility] Work Phone: ALT [Catalytic activity/Vol] 73 U/L 13-56 [facility] Work Phone: No Panel Informationon 07-15 Anti-Nuclear Antibody Screen Negative Negative [facility] Work Phone: Comment on above: Performed at: [address] [id number] Director: Rob Read PhD, Phone: [phone] Centromere B Antibody Not Reportable [facility] Work Phone: ASSISTED LIVING EXECUTIVE DIRECTOR Antibody Not Reportable [facility] Work Phone: Thyroid Stimulating Hormone (TSH) 0.54 uIU/mL 0.358-3.74 [facility] Work Phone: Serum DNA double strand anti body assay (units/volume)on 07-15-2021 DNA double strand Ab Qn (S) Not Reportable [facility] Work Phone: Serum Gina-1 antibody assay (u nits/volume)on 07-15-2021 Gina-1 extractable nuclear Ab Qn (S) Not Reportable [facility] Work Phone: Serum Scl-70 extractable nuc lear antibody assay (units/volume)on 07-15-2021 SCL-70 extractable nuclear Ab Qn (S) Not Reportable [facility] Work Phone: Serum [place] extractable nucl ear antibody detectionon 07-15-2021 [place] extractable nuclear Ab Ql (S) Not Reportable [facility] Work Phone: Serum cyclic citrullinated p eptide IgG antibody assay (units/volume)on 07-15-2021 Cyclic citrullinated peptide IgG Qn 25 units [facility] Work Phone: Comment on above: Negative <20 Weak po sitive 20 - 39 Moderate positive 40 - 59 Strong positive >59Performed at: - [facility] [id number] Director: Vianca Mayers MD, Phone: [phone] Serum or plasma albumin mahnaz urement (mass/volume)on 07-15-2021 Albumin [Mass/Vol] 2.5 g/dL 3.2-5.0 [facility] Work Phone: Serum rheumatoid factor dete ctionon 07-15-2021 Rheumatoid factor Ql (S) < 10.0 IU/mL <15 [facility] Work Phone: Thin prep Papanicolaou smear with manual screeningon 07-15-2021 Thin prep Papanicolaou smear with manual screening 94 U/L 15-37 [facility] Work Phone: Basophil percentageon 2021 Basophil percentage 0-5 SEEN /hpf [facility] Work Phone: Lactate [Moles/Vol] 1.2 mmol/L 0.4-2.0 [facility] Work Phone: Bilirubin Test strip Ql (U)o n 07-14-2021 Bilirubin Ql (U) Negative Negative [facility] Work Phone: Ketones Test strip Ql (U)on 07-14-2021 Ketones Ql (U) 5 mg/dl Negative [facility] Work Phone: Laboratory - Chemistry and C hemistry - challengeon 07-14-2021 Lipase [Catalytic activity/Vol] 74 U/L 73-393 [facility] Work Phone: Natriuretic peptide B (Bld) [Mass/Vol] 548.1 pg/mL 0-100 [facility] Work Phone: Laboratory - Microbiology an d Antimicrobial susceptibilityon 07-14-2021 Bacteria identified Cx Nom (Bld) No growth in 5 days. [facility] Work Phone: SARS-CoV-2 (COVID-19) RNA KASHIF+probe Ql (Unsp spec) Not detected Not Detect [facility] Work Phone: [phone] Comment on above: Normal Reference Ran ge: [...] Mucus Ql (Urine sed) 0 SEEN /hpf [facility] Work Phone: [phone] Nitrite Test strip Ql (U)on 07-14-2021 Nitrite Ql (U) Negative Negative [facility] Work Phone: [phone] No Panel Informationon 07-14 Streptococcus pneumoniae Antigen (M [facility] Work Phone: [phone] Troponin I High Sensitivity 7 pg/mL 3.0-54.0 [facility] Work Phone: [phone] Comment on above: Please Note: [place] Units and Gender Specific Reference Ranges. For more information see Policy Stat Procedure [place] High Sensitivity Troponin (TNIH) and attachments. Protein Test strip Ql (U)on 07-14-2021 Protein Ql (U) 100 mg/dl Negative [facility] Work Phone: [phone] Squamous epithelial cells de tection in urine sediment by light microscopyon 07-14-2021 Epithelial cells.squamous LM Ql (Urine sed) 5-10 SEEN /hpf [facility] Work Phone: [phone] Urine blood detectionon RBC Ql (U) 250 /ul Negative [facility] Work Phone: [phone] RBC Ql (U) 0-5 SEEN /hpf [facility] Work Phone: Urine clarityon 07-14-2021 Clarity (U) Sl. Cloudy Clear [facility] Work Phone: Urine color determinationon 07-14-2021 Color (U) Deena Yellow [facility] Work Phone: Urine glucose detectionon Glucose Ql (U) Normal mg/dl Normal [facility] Work Phone: Urine leukocyte esterase det ection by dipstickon 07-14-2021 Leukocyte esterase Test strip Ql (U) 25 /ul Negative [facility] Work Phone: Urine pHon 07-14-2021 pH (U) 6.5 [pH] [facility] Work Phone: Urine sediment bacteria coun t by microscopy (number/high power field)on 07-14-2021 Bacteria LM.HPF (Urine sed) [#/Area] RARE /hpf None Seen [facility] Work Phone: Urine specific gravity measu rementon 07-14-2021 Specific gravity (U) [Rel density] 1.010 [facility] Work Phone: Urobilinogen Auto test strip Ql (U)on 07-14-2021 Urobilinogen Ql (U) 4 mg/dl Normal [facility] Work Phone: Absolute lymphocyte counton 07-09-2021 Lymphocytes Auto (Unsp spec) [#/Vol] 1.87 10*3/uL 0.83-4.51 [facility] Work Phone: Basophil percentageon 2021 Basophils/100 WBC (Bld) 0.7 % 0-1 [facility] Work Phone: Chloride [Moles/Vol] 102 mmol/L 98-107 [facility] Work Phone: Eosinophils/100 WBC (Bld) 3.6 % 0-5 [facility] Work Phone: Glucose [Mass/Vol] 94 mg/dL 74-106 [facility] Work Phone: Neutrophils (Bld) [#/Vol] 5.0 10*3/uL 2.0-7.7 [facility] Work Phone: [phone] Neutrophils/100 WBC (Bld) 59.5 % 47-70 [facility] Work Phone: [phone] Potassium [Moles/Vol] 3.8 mmol/L 3.5-5.1 [facility] Work Phone: [phone] Sodium [Moles/Vol] 137 mmol/L 136-145 [facility] Work Phone: [phone] WBC (Bld) [#/Vol] 8.4 10*3/uL 4.4-11.0 [facility] Work Phone: [phone] Blood erythrocytes count (nu mber/volume)on 07-09-2021 RBC (Bld) [#/Vol] 4.44 10*6/uL 4.2-5.4 [facility] Work Phone: Blood hemoglobin measurement (mass/volume)on 07-09-2021 Hemoglobin (Bld) [Mass/Vol] 12.5 g/dL 12.0-15.0 [facility] Work Phone: Blood lymphocytes/100 leukoc yteson 07-09-2021 Lymphocytes/100 WBC (Bld) 22.2 % 19-41 [facility] Work Phone: [phone] Blood monocytes/100 leukocyt eson 07-09-2021 Monocytes/100 WBC (Bld) 13.8 % 0-10 [facility] Work Phone: [phone] Blood platelet mean volumeon 07-09-2021 Platelet mean volume (Bld) [Entitic vol] 8.9 fL 6.2-12.0 [facility] Work Phone: Cytology report of Body flui d Cyto stainon 07-09-2021 Cytology report Cyto stain Doc (Body fld) SEE PATHOLOGY REPORT [facility] Work Phone: Comment on above: Specimen submitted t o Anatomical Pathology Department for testing. Determination of erythrocyte mean corpuscular volume (MCV)on 07-09-2021 MCV (RBC) [Entitic vol] 86.5 fL 81-99 [facility] Work Phone: [phone] Hematocrit Auto (Bld) [Volum e fraction]on 07-09-2021 Hematocrit (Bld) [Volume fraction] 38.4 % 37-47 [facility] Work Phone: [phone] INR in Blood by Coagulation assayon 07-09-2021 INR Coag (Bld) [Relative time] 1.1 {INR} [facility] Work Phone: [phone] Laboratory - Chemistry and C hemistry - challengeon 07-09-2021 CO2 [Moles/Vol] 29.0 mmol/L 21.0-32.0 [facility] Work Phone: [phone] Urea nitrogen/Creatinine [Mass ratio] 17.2 mg/mg 10-20 [facility] Work Phone: [phone] Laboratory - Coagulationon 0 07-09-2021 PT Coag (PPP) [Time] 14.0 s 11.7-14.9 [facility] Work Phone: [phone] Laboratory - Hematology and Cell countson 07-09-2021 Erythrocyte distribution width (RBC) [Entitic vol] 48.0 fL 35.1-43.9 [facility] Work Phone: [phone] Erythrocyte distribution width (RBC) [Ratio] 15.3 % 11.6-14.6 [facility] Work Phone: [phone] Immature granulocytes/100 WBC (Bld) 0.200 % 0.0-0.9 [facility] Work Phone: [phone] Comment on above: IG% - Immature Granu locytes (promyelocytes, myelocytes and metamyelocytes) > 1% indicates that a LEFT SHIFT is Present. MCH (RBC) [Entitic mass] 28.2 pg 27.0-32.0 [facility] Work Phone: [phone] Nucleated RBC/100 WBC (Bld) [Ratio] 0 % 0-5 [facility] Work Phone: [phone] MCHC Auto (RBC) [Mass/Vol]on 07-09-2021 MCHC (RBC) [Mass/Vol] 32.6 g/dL 32-36 [facility] Work Phone: No Panel Informationon 07-09 Estimated Creatinine Clearance Calc 36.68 ml/min [facility] Work Phone: Estimated GFR (MDRD) Amer 96 mL/min >60 [facility] Work Phone: Comment on above: GFR Calc Estimated GFR (MDRD) Non-Af Amer 79 mL/min >60 [facility] Work Phone: Comment on above: Non- GFR Calc Platelets bldon 07-09-2021 Platelets (Bld) [#/Vol] 406 10*3/uL 150-450 [facility] Work Phone: Serum or plasma calcium mahnaz urement (mass/volume)on 07-09-2021 Calcium [Mass/Vol] 8.7 mg/dL 8.5-10.1 [facility] Work Phone: [phone] Serum or plasma creatinine m easurement (mass/volume)on 07-09-2021 Creatinine [Mass/Vol] 0.75 mg/dL 0.55-1.02 [facility] Work Phone: Comment on above: The validity of the calculated GFR & GFRAA in patients over 70 years has not been determined. Clinical correlation is essential. Serum or plasma urea nitroge n measurement (mass/volume)on 07-09-2021 Urea nitrogen [Mass/Vol] 13 mg/dL 7-18 [facility] Work Phone: [phone] Thin prep Papanicolaou smear with manual screeningon 07-09-2021 Thin prep Papanicolaou smear with manual screening 6 5-15 [facility] Work Phone: [phone] Basophil percentageon 2021 Bilirubin [Mass/Vol] 0.70 mg/dL 0.20-1.00 [facility] Work Phone: Comment on above: For patients on eltr ombopag therapy, use of Dimension [place] TBIL is not recommended. Protein [Mass/Vol] 7.0 g/dL 6.4-8.2 [facility] Work Phone: Laboratory - Chemistry and C hemistry - challengeon 07-08-2021 ALP [Catalytic activity/Vol] 106 U/L 45-117 [facility] Work Phone: ALT [Catalytic activity/Vol] 14 U/L 13-56 [facility] Work Phone: [phone] Globulin (S) [Mass/Vol] 4.0 g/dL 2.2-4.2 [facility] Work Phone: Serum or plasma albumin mahnaz urement (mass/volume)on 07-08-2021 Albumin [Mass/Vol] 3.0 g/dL 3.2-5.0 [facility] Work Phone: Serum or plasma albumin/glob ulin mass ratioon 07-08-2021 Albumin/Globulin [Mass ratio] 0.8 {ratio} 0.9-2.4 [facility] Work Phone: Thin prep Papanicolaou smear with manual screeningon 07-08-2021 Thin prep Papanicolaou smear with manual screening 17 U/L 15-37 [facility] Work Phone: Direct bilirubinon 2 Bilirubin.direct [Mass/Vol] 0.22 mg/dL 0.00-0.30 [facility] Work Phone: Laboratory - Chemistry and C hemistry - challengeon 07-07-2021 Magnesium [Mass/Vol] 2.2 mg/dL 1.6-2.6 [facility] Work Phone: Natriuretic peptide B (Bld) [Mass/Vol] 381.7 pg/mL 0-100 [facility] Work Phone: No Panel Informationon 07-07 Troponin I High Sensitivity 7 pg/mL 3.0-54.0 [facility] Work Phone: Comment on above: Please Note: [place] t Units and Gender Specific Reference Ranges. For more information see Policy Stat Procedure [place] High Sensitivity Troponin (TNIH) and attachments. No Panel Informationon 07-02 Radiology Study observation (narrative) Iam [facility] XR Chest AP right lateral-de cubituson 07-02-2021 IMPRESSION: Layering right-sided pleural effusion. Typewriter Ribbon Winder: USMAN Transcribe Date/Time: Jul 02 2021 2:37P Dictated by : EARNEST DOLL MD This examination was interpreted and the report reviewed and electronically signed by: EARNEST DOLL MD on Jul 02 2021 2:38PM EST DIVISION OF RADIOLOGY * * *Final [...] lung is clear. DIVISION OF RADIOLOGY Provider, [facility] - 07/02/2021 * * *Final Report* [...] clear. IMPRESSION IMPRESSION: Layering right-sided pleural effusion. Typewriter Ribbon Winder: USMAN Transcribe Date/Time: Jul 02 2021 2:37P Dictated by : EARNEST DOLL MD This examination was interpreted and the report reviewed and electronically signed by: EARNEST DOLL MD on Jul 02 2021 2:38PM EST [facility] XR Chest PA and Lateralon IMPRESSION: Slight improvement of the right-sided pleural effusion. Stable cardiomegaly. Stable prominence of the central pulmonary vasculature. Typewriter Ribbon Winder: USMAN Transcribe Date/Time: Jul 02 2021 2:36P Dictated by : EARNEST DOLL MD This examination was interpreted and the report reviewed and electronically signed by: EARNEST DOLL MD on Jul 02 2021 2:36PM [facility] DIVISION OF RADIOLOGY * * *Final [...] soft tissues: Unremarkable. DIVISION OF RADIOLOGY Provider, [facility] - 07/02/2021 * * *Final Report* [...] Stable prominence of the central pulmonary vasculature. Typewriter Ribbon Winder: USMAN Transcribe Date/Time: Jul 02 2021 2:36P Dictated by : EARNEST DOLL MD This examination was interpreted and the report reviewed and electronically signed by: EARNEST DOLL MD on Jul 02 2021 2:36PM EST [facility] XR Chest PA and LateralOrder ed By: [facility] Provider on 07-02-2021 [facility] Basophil percentageon 2021 Chloride [Moles/Vol] 98 mmol/L 98-107 [facility] Work Phone: [phone] Glucose [Mass/Vol] 82 mg/dL 74-106 [facility] Work Phone: [phone] Potassium [Moles/Vol] 4.0 mmol/L 3.5-5.1 [facility] Work Phone: [phone] Sodium [Moles/Vol] 136 mmol/L 136-145 [facility] Work Phone: Body fluid appearanceon 06-05 Appearance (Body fld) TURBID [facility] Work Phone: [phone] Body fluid color determinati onon 06-22-2021 Color (Body fld) YELLOW [facility] Work Phone: [phone] Body fluid erythrocytes coun t (number/volume)on 06-22-2021 RBC (Body fld) [#/Vol] 10 10*3/uL [facility] Work Phone: [phone] Body fluid lactate dehydroge nase measurement (enzymatic activity/volume) by pyruvateon 06-22-2021 LDH Pyruvate to lactate reaction (Body fld) [Catalytic activity/Vol] 84 Units/l Not Establ. [facility] Work Phone: [phone] Body fluid leukocytes count (number/volume)on 06-22-2021 WBC (Body fld) [#/Vol] 0.655 10*3/uL [facility] Work Phone: [phone] Body fluid lymphocytes/100 l eukocyteson 06-22-2021 Lymphocytes/100 WBC (Body fld) 69 % [facility] Work Phone: [phone] Body fluid macrophage counto n 06-22-2021 Macrophages (Body fld) [#/Vol] 27 % [facility] Work Phone: [phone] Body fluid pH measurementon 06-22-2021 pH (Body fld) 7.6 [pH] Not Estab. [facility] Work Phone: [phone] Comment on above: The reference interv al(s) and other method performance specificationshave not been established for this body fluid. The test result must beintegrated into the clinical context for interpretation.Performed at: [address] [id number] Director: Vianca Mayers MD, Phone: [phone] Body fluid protein measureme nt (mass/volume)on 06-22-2021 Protein (Body fld) [Mass/Vol] 4.3 g/dL Not Establ. [facility] Work Phone: [phone] Body fluid segmented neutrop hils count (number/volume)on 06-22-2021 Segmented neutrophils (Body fld) [#/Vol] 2 % [facility] Work Phone: [phone] Cytology report of Body flui d Cyto stainon 06-22-2021 Cytology report Cyto stain Doc (Body fld) SEE PATHOLOGY REPORT [facility] Work Phone: [phone] Comment on above: Specimen submitted t o Anatomical Pathology Department for testing. INR in Blood by Coagulation assayon 06-22-2021 INR Coag (Bld) [Relative time] 1.3 {INR} [facility] Work Phone: [phone] Laboratory - Chemistry and C hemistry - challengeon 06-22-2021 CO2 [Moles/Vol] 32.0 mmol/L 21.0-32.0 [facility] Work Phone: [phone] Urea nitrogen/Creatinine [Mass ratio] 34.3 mg/mg 10-20 [facility] Work Phone: [phone] Laboratory - Coagulationon 0 06-22-2021 PT Coag (PPP) [Time] 15.8 s 11.7-14.9 [facility] Work Phone: Mononuclear cells Auto (Body fld) [#/Vol]on 06-22-2021 Mononuclear cells (Body fld) [#/Vol] 0.635 10*3/uL [facility] Work Phone: No Panel Informationon 06-22 Body Fluid Comment 2 SEE COMMENT [facility] Work Phone: Body Fluid Glucose 137 mg/dL 40-70 [facility] Work Phone: Comment on above: Slight Lipemia, Resu lt may be falsely increased. Body Fluid Mononuclear WBCs (%) 97.0 % [facility] Work Phone: Body Fluid Pathologist Comment Reviewed [facility] Work Phone: [phone] Comment on above: Previous reported re sult: May follow Edited by: RGOMARLENA on 06/23/21:1306Negative for malignant cells.Fabrizio Watson M.D. 06/23/21 AMENDED REPORT 06/23/21 1306 PATH COMM/BF previously reported as: May follow Body Fluid Polynuclear WBCs (#) 0.020 10^3/uL [facility] Work Phone: Body Fluid Polynuclear WBCs (%) 3.0 % [facility] Work Phone: [phone] Estimated Creatinine Clearance Calc 36.68 ml/min [facility] Work Phone: [phone] Estimated GFR (MDRD) Amer 122 mL/min >60 [facility] Work Phone: [phone] Comment on above: GFR Calc Estimated GFR (MDRD) Non-Af Amer 101 mL/min >60 [facility] Work Phone: Comment on above: Non- GFR Calc Serum or plasma calcium mahnaz urement (mass/volume)on 06-22-2021 Calcium [Mass/Vol] 8.7 mg/dL 8.5-10.1 [facility] Work Phone: Serum or plasma creatinine m easurement (mass/volume)on 06-22-2021 Creatinine [Mass/Vol] 0.61 mg/dL 0.55-1.02 [facility] Work Phone: [phone] Comment on above: The validity of the calculated GFR & GFRAA in patients over 70 years has not been determined. Clinical correlation is essential. Serum or plasma urea nitroge n measurement (mass/volume)on 06-22-2021 Urea nitrogen [Mass/Vol] 21 mg/dL 12-20 [facility] Work Phone: [phone] Specimen source identificati on of body fluidon 06-22-2021 Specimen source Nom (Body fld) THORACENTESIS [facility] Work Phone: [phone] Thin prep Papanicolaou smear with manual screeningon 06-22-2021 Thin prep Papanicolaou smear with manual screening 2 % [facility] Work Phone: [phone] Thin prep Papanicolaou smear with manual screening 6 5-15 [facility] Work Phone: [phone] Total cell counton Cells counted Molgen (Bld/Tiss) [#] 0.786 10^3/ul [facility] Work Phone: [phone] Comment on above: This is the Total Nu mber of Nucleated Cell Types in the Body Fluid. Basophil percentageon 2021 Protein [Mass/Vol] 7.4 g/dL 6.4-8.2 [facility] Work Phone: [phone] Laboratory - Chemistry and C hemistry - challengeon 06-21-2021 Globulin (S) [Mass/Vol] 4.3 g/dL 2.2-4.2 [facility] Work Phone: [phone] Serum or plasma albumin/glob ulin mass ratioon 06-21-2021 Albumin/Globulin [Mass ratio] 0.7 {ratio} 0.9-2.4 [facility] Work Phone: [phone] Thin prep Papanicolaou smear with manual screeningon 06-21-2021 Thin prep Papanicolaou smear with manual screening 171 U/L 84-246 [facility] Work Phone: Absolute lymphocyte counton 06-19-2021 Lymphocytes Auto (Unsp spec) [#/Vol] 1.84 10*3/uL 0.83-4.51 [facility] Work Phone: Basophil percentageon 2021 Basophils/100 WBC (Bld) 0.8 % 0-1 [facility] Work Phone: Bilirubin [Mass/Vol] 0.50 mg/dL 0.20-1.00 [facility] Work Phone: Comment on above: For patients on eltr ombopag therapy, use of Dimension [place] TBIL is not recommended. Eosinophils/100 WBC (Bld) 1.5 % 0-5 [facility] Work Phone: Neutrophils (Bld) [#/Vol] 5.6 10*3/uL 2.0-7.7 [facility] Work Phone: Neutrophils/100 WBC (Bld) 63.7 % 47-70 [facility] Work Phone: WBC (Bld) [#/Vol] 8.7 10*3/uL 4.4-11.0 [facility] Work Phone: Blood erythrocytes count (nu mber/volume)on 06-19-2021 RBC (Bld) [#/Vol] 4.44 10*6/uL 4.2-5.4 [facility] Work Phone: Blood hemoglobin measurement (mass/volume)on 06-19-2021 Hemoglobin (Bld) [Mass/Vol] 12.2 g/dL 12.0-15.0 [facility] Work Phone: Blood lymphocytes/100 leukoc yteson 06-19-2021 Lymphocytes/100 WBC (Bld) 21.1 % 19-41 [facility] Work Phone: Blood monocytes/100 leukocyt eson 06-19-2021 Monocytes/100 WBC (Bld) 12.7 % 0-10 [facility] Work Phone: [phone] Blood platelet mean volumeon 06-19-2021 Platelet mean volume (Bld) [Entitic vol] 8.9 fL 6.2-12.0 [facility] Work Phone: [phone] Determination of erythrocyte mean corpuscular volume (MCV)on 06-19-2021 MCV (RBC) [Entitic vol] 85.8 fL 81-99 [facility] Work Phone: [phone] Hematocrit Auto (Bld) [Volum e fraction]on 06-19-2021 Hematocrit (Bld) [Volume fraction] 38.1 % 37-47 [facility] Work Phone: [phone] Laboratory - Chemistry and C hemistry - challengeon 06-19-2021 ALP [Catalytic activity/Vol] 118 U/L 45-117 [facility] Work Phone: [phone] ALT [Catalytic activity/Vol] 22 U/L 13-56 [facility] Work Phone: [phone] Laboratory - Hematology and Cell countson 06-19-2021 Erythrocyte distribution width (RBC) [Entitic vol] 45.7 fL 35.1-43.9 [facility] Work Phone: [phone] Erythrocyte distribution width (RBC) [Ratio] 14.5 % 11.6-14.6 [facility] Work Phone: [phone] Immature granulocytes/100 WBC (Bld) 0.200 % 0.0-0.9 [facility] Work Phone: [phone] Comment on above: IG% - Immature Granu locytes (promyelocytes, myelocytes and metamyelocytes) > 1% indicates that a LEFT SHIFT is Present. MCH (RBC) [Entitic mass] 27.5 pg 27.0-32.0 [facility] Work Phone: [phone] Nucleated RBC/100 WBC (Bld) [Ratio] 0 % 0-5 [facility] Work Phone: [phone] MCHC Auto (RBC) [Mass/Vol]on 06-19-2021 MCHC (RBC) [Mass/Vol] 32.0 g/dL 32-36 [facility] Work [facility]: No Panel Informationon 06-19 Streptococcus pneumoniae Antigen (M [facility] Work Phone: Thyroid Stimulating Hormone (TSH) 1.50 uIU/mL 0.358-3.74 [facility] Work Phone: Troponin I High Sensitivity 6 pg/mL 3.0-54.0 [facility] Work Phone: Comment on above: Please Note: [place] t Units and Gender Specific Reference Ranges. For more information see Policy Stat Procedure [place] High Sensitivity Troponin (TNIH) and attachments. Platelets bldon 06-19-2021 Platelets (Bld) [#/Vol] 337 10*3/uL 150-450 [facility] Work Phone: Serum or plasma albumin mahnaz urement (mass/volume)on 06-19-2021 Albumin [Mass/Vol] 3.4 g/dL 3.2-5.0 [facility] Work Phone: Thin prep Papanicolaou smear with manual screeningon 06-19-2021 Thin prep Papanicolaou smear with manual screening 13 U/L 15-37 [facility] Work Phone: Laboratory - Chemistry and C hemistry - challengeon 06-18-2021 Magnesium [Mass/Vol] 2.3 mg/dL 1.6-2.6 [facility] Work Phone: Natriuretic peptide B (Bld) [Mass/Vol] 329.1 pg/mL 0-100 [facility] Work Phone: No Panel Informationon 06-18 SARS-CoV-2 Antigen (Rapid) [facility] Work Phone: XR Chest PA and Lateralon IMPRESSION: Stable right pleural effusion Typewriter Ribbon Winder: USMAN Transcribe Date/Time: Jun 18 2021 1:55P Dictated by : SANTI LÓPEZ MD This examination was interpreted and the report reviewed and electronically signed by: SANTI LÓPEZ MD on Jun 18 2021 1:57PM [facility] DIVISION OF RADIOLOGY * * *Final [...] soft tissues: Unremarkable. DIVISION OF RADIOLOGY Provider, [facility] - 06/18/2021 * * *Final Report* * [...] Unremarkable. IMPRESSION IMPRESSION: Stable right pleural effusion Typewriter Ribbon Winder: PSCB Transcribe Date/Time: Jun 18 2021 1:55P Dictated by : SANTI LÓPEZ MD This examination was interpreted and the report reviewed and electronically signed by: SANTI LÓPEZ MD on Jun 18 2021 1:57PM EST [facility] Radiology Study observation (narrative) Iam Lacy XR Chest PA and LateralOrder ed By: Ccf Provider on 06-18-2021 [facility] Basophil percentageon 2020 Chloride [Moles/Vol] 103 mmol/L 98-107 [facility] Work Phone: Glucose [Mass/Vol] 130 mg/dL 74-106 [facility] Work Phone: Comment on above: Fasting Glucose resu lt greater than or equal to 126 mg/dL suggests DIABETES MELLITUS per A.D.A. criteria.Please note revised GLUCOSE reference range effective 2017. Potassium [Moles/Vol] 3.8 mmol/L 3.5-5.1 [facility] Work Phone: Sodium [Moles/Vol] 138 mmol/L 136-145 [facility] Work Phone: Laboratory - Chemistry and C hemistry - challengeon 05-14-2021 CO2 [Moles/Vol] 30.0 mmol/L 21.0-32.0 [facility] Work Phone: Natriuretic peptide B (Bld) [Mass/Vol] 437.1 pg/mL 0-100 [facility] Work Phone: Urea nitrogen/Creatinine [Mass ratio] 13.5 mg/mg 10-20 [facility] Work Phone: No Panel Informationon 05-14 Estimated GFR (MDRD) Amer 88 mL/min >60 [facility] Work Phone: Comment on above: GFR Calc Estimated GFR (MDRD) Non-Af Amer 73 mL/min >60 [facility] Work Phone: Comment on above: Non- GFR Calc Serum or plasma calcium mahnaz urement (mass/volume)on 05-14-2021 Calcium [Mass/Vol] 8.8 mg/dL 8.5-10.1 [facility] Work Phone: Serum or plasma creatinine m easurement (mass/volume)on 05-14-2021 Creatinine [Mass/Vol] 0.82 mg/dL 0.55-1.02 [facility] Work Phone: Comment on above: The validity of the calculated GFR & GFRAA in patients over 70 years has not been determined. Clinical correlation is essential. Serum or plasma urea nitroge n measurement (mass/volume)on 05-14-2021 Urea nitrogen [Mass/Vol] 11 mg/dL 7-18 [facility] Work Phone: Thin prep Papanicolaou smear with manual screeningon 05-14-2021 Thin prep Papanicolaou smear with manual screening 5 -15 [facility] Work Phone: XR Chest PA and Lateralon IMPRESSION: Moderate to large RIGHT pleural effusion increased in size from prior study. Typewriter Ribbon Winder: USMAN Transcribe Date/Time: May 04 2020 3:38P Dictated by : JOLEEN GASTON MD This examination was interpreted and the report reviewed and electronically signed by: JOLEEN GASTON MD on May 04 2020 3:42PM [facility] DIVISION OF RADIOLOGY * * *Final [...] soft tissues: Unremarkable. DIVISION OF RADIOLOGY Provider, [facility] - 05/04/2020 * * *Final Report* [...] effusion increased in size from prior study. Typewriter Ribbon Winder: PSCB Transcribe Date/Time: May 04 2020 3:38P Dictated by : JOLEEN GASTON MD This examination was interpreted and the report reviewed and electronically signed by: JOLEEN GASTON MD on May 04 2020 3:42PM EST [facility] Radiology Study observation (narrative) [facility] XR Chest PA and LateralOrder ed By: Ccf Provider on 05-04-2020 [facility] Anaerobic culture Bacteria identified Anaer cx Nom (Unsp spec) No growth in 5 days. [facility] Work Phone: Bacterial body fluid culture Bacteria identified Cx Nom (Body fld) No growth aerobically. [facility] Work Phone: Culture, urine Bacteria identified Cx Nom (U) Culture exhibits no growth. [facility] Work Phone: Gram stain for investigation of transfusion reaction Microscopic observation Gram stain Nom (Unsp spec) [facility] Work Phone: Laboratory - Microbiology an d Antimicrobial susceptibility Bacteria identified Cx Nom (Bld) Pasteurella multocida [facility] Work Phone: Bacteria identified Cx Nom (Bld) Negative [facility] Work Phone: Respiratory pathogens DNA and RNA 12b panel KASHIF+probe (Unsp spec) [facility] Work Phone: No Panel Information Respiratory Panel (PCR) [facility] Work Phone: Vital Signs Date Time Vital Sign Value Performing Clinician Facility 03-04-2025 07:58-0400 Body height 152.[address] Christopher Bonilla MD Work Phone: [facility] 03-04-2025 07:58-0400 Body mass index (BMI) [Ratio] 24.2 kg/m2 Dr. Christopher Bonilla MD Work Phone: [facility] 03-04-2025 07:58-0400 Body weight 56.[address] Christopher Bonilla MD Work Phone: [facility] 03-04-2025 07:58-0400 Diastolic blood pressure 84 mm[Hg] Dr. Christopher Bonilla MD Work Phone: [facility] 03-04-2025 07:58-0400 Heart rate 105 /min Dr. Christopher Bonilla MD Work Phone: [facility] 03-04-2025 07:58-0400 Respiratory rate 18 /min Dr. Christopher Bonilla MD Work Phone: [facility] 03-04-2025 07:58-0400 SaO2% (BldA) [Mass fraction] 95 % Dr. Christopher Bonilla MD Work Phone: [facility] 03-04-2025 07:58-0400 Systolic blood pressure 121 mm[Hg] Dr. hCristopher Bonilla MD Work Phone: [facility] 02-05-2025 14:09-0400 Body mass index (BMI) [Ratio] 23.5 kg/m2 Dalila Jensen TOPOLOGY PROFESSOR.HOT SAW OPERATOR Work Phone: [facility] 02-05-2025 14:09-0400 Body weight 52.16 kg Dalila Jensen TOPOLOGY PROFESSOR.HOT SAW OPERATOR Work Phone: [facility] 02-05-2025 14:09-0400 Diastolic blood pressure 72 mm[Hg] Dalila Jensen TOPOLOGY PROFESSOR.HOT SAW OPERATOR Work Phone: [facility] 02-05-2025 14:09-0400 Heart rate 109 /min Dalila Jensen TOPOLOGY PROFESSOR.HOT SAW OPERATOR Work Phone: [facility] 02-05-2025 14:09-0400 SaO2% (BldA) [Mass fraction] 96 % Dalila Jensen TOPOLOGY PROFESSOR.HOT SAW OPERATOR Work Phone: [facility] 02-05-2025 14:09-0400 Systolic blood pressure 118 mm[Hg] Dalila Jensen TOPOLOGY PROFESSOR.HOT SAW OPERATOR Work Phone: [facility] 01-25-2025 13:42-0400 Body temperature 98 [degF] Dr. Christopher Bonilla MD Work Phone: 7(197)881-023313 [place] [address] 01-25-2025 13:42-0400 Diastolic blood pressure 77 mm[Hg] Dr. Christopher Bonilla MD Work Phone: 4(412)923-751613 [place] [address] 01-25-2025 13:42-0400 Heart rate 99 /min Dr. Christopher Bonilla MD Work Phone: 2(581)561-468613 [place] [address] 01-25-2025 13:42-0400 Respiratory rate 18 /min Dr. Christopher Bonilla MD Work Phone: 4(193)689-990313 [place] [address] 01-25-2025 13:42-0400 SaO2% (BldA) [Mass fraction] 98 % Dr. Christopher Bonilla MD Work Phone: 2(681)250-521613 [place] [address] 01-25-2025 13:42-0400 Systolic blood pressure 122 mm[Hg] Dr. Christopher Bonilla MD Work Phone: 9(010)065-175413 [place] [address] 01-25-2025 09:04-0400 Heart rate 66 /min Dr. Christopher Bonilla MD Work Phone: 2(146)727-697613 [place] [address] 01-25-2025 09:03-0400 Body temperature 98.4 [degF] Dr. Christopher Bonilla MD Work Phone: 6(432)853-960513 [place] [address] 01-25-2025 09:03-0400 Diastolic blood pressure 71 mm[Hg] Dr. Christopher Bonilla MD Work Phone: 6(126)285-626113 [place] [address] 01-25-2025 09:03-0400 Respiratory rate 18 /min Dr. Christopher Bonilla MD Work Phone: 1(469)942-598013 [place] [address] 01-25-2025 09:03-0400 SaO2% (BldA) [Mass fraction] 94 % Dr. Christopher Bonilla MD Work Phone: 1(610)578-026313 [place] [address] 01-25-2025 09:03-0400 Systolic blood pressure 114 mm[Hg] Dr. Christopher Bonilla MD Work Phone: 6(776)538-313813 [place] [address] 01-25-2025 07:45-0400 Inhaled oxygen flow rate 1 L/min Dr. Christopher Bonilla MD Work Phone: 6(053)214-257313 [place] [address] 01-23-2025 11:24-0400 Body height 152.[address] Christopher Bonilla MD Work Phone: 2(112)312-344613 [place] [address] 01-23-2025 11:24-0400 Body weight 52.[address] Christopher Bonilla MD Work Phone: 6(822)584-294513 [place] [address] 01-22-2025 17:46-0400 Body mass index (BMI) [Ratio] 22.7 kg/m2 Dr. Christopher Bonilla MD Work Phone: 5(660)376-792113 [place] [address] 01-22-2025 17:22-0400 Body temperature 99.6 [degF] Dr. Christopher Bonilla MD Work Phone: 7(675)247-581413 [place] [address] 01-22-2025 17:22-0400 Diastolic blood pressure 65 mm[Hg] Dr. Christopher Bonilla MD Work Phone: 3(747)612-247013 [place] [address] 01-22-2025 17:22-0400 Heart rate 65 /min Dr. Christopher Bonilla MD Work Phone: 3(812)414-799113 [place] [address] 01-22-2025 17:22-0400 Respiratory rate 20 /min Dr. Christopher Bnoilla MD Work Phone: 3(635)796-888713 [place] [address] 01-22-2025 17:22-0400 SaO2% (BldA) [Mass fraction] 94 % Dr. Christopher Bonilla MD Work Phone: 8(802)013-661413 [place] [address] 01-22-2025 17:22-0400 Systolic blood pressure 123 mm[Hg] Dr. Christopher Bonilla MD Work Phone: 5(518)333-569313 [place] [address] 01-22-2025 17:16-0400 Inhaled oxygen flow rate 2 L/min Dr. Christopher Bonilla MD Work Phone: 5(756)603-754313 [place] [address] 01-22-2025 13:21-0400 Body height 154.[address] Christopher Bonilla MD Work Phone: 1(288)977-044713 [place] [address] 01-22-2025 13:21-0400 Body mass index (BMI) [Ratio] 22.4 kg/m2 Dr. Christopher Bonilla MD Work Phone: 7(938)709-190513 [place] [address] 01-22-2025 13:21-0400 Body weight 53.[address] Christopher Bonilla MD Work Phone: 7(739)966-254145 [place] [address] 01-02-2025 14:33-0400 Body temperature 98.8 [degF] Dr. Christopher Bonilla MD Work Phone: 0(133)404-740513 [place] [address] 01-02-2025 14:33-0400 Diastolic blood pressure 66 mm[Hg] Dr. Christopher Bonilla MD Work Phone: 3(241)045-426313 [place] [address] 01-02-2025 14:33-0400 Heart rate 69 /min Dr. Christopher Bonilla MD Work Phone: 5(864)829-192613 [place] [address] 01-02-2025 14:33-0400 Respiratory rate 18 /min Dr. Christopher Bonilla MD Work Phone: 0(655)966-918613 [place] [address] 01-02-2025 14:33-0400 SaO2% (BldA) [Mass fraction] 91 % Dr. Christopher Bonilla MD Work Phone: 1(480)244-119545 [place] [address] 01-02-2025 14:33-0400 Systolic blood pressure 168 mm[Hg] Dr. Christopher Bonilla MD Work Phone: 9(145)652-497645 [place] [address] 01-02-2025 11:00-0400 Body height 154.[address] Christopher Bonilla MD Work Phone: 9(354)076-710513 [place] [address] 01-02-2025 11:00-0400 Body mass index (BMI) [Ratio] 23.5 kg/m2 Dr. Christopher Bonilla MD Work Phone: 8(054)629-551945 [place] [address] 01-02-2025 11:00-0400 Body weight 56.[address] Christopher Bonilla MD Work Phone: 1(429)998-041645 [place] [address] 12-13-2024 14:15-0400 Body height 149 cm Mimi Encinas APRN.HOT SAW OPERATOR Work Phone: [facility] 12-13-2024 14:15-0400 Body mass index (BMI) [Ratio] 24.52 kg/m2 Mimi Encinas APRN.HOT SAW OPERATOR Work Phone: [facility] 12-13-2024 14:15-0400 Body weight 54.43 kg Mimi Suppan TOPOLOGY PROFESSOR.HOT SAW OPERATOR Work Phone: [facility] 12-13-2024 14:15-0400 Diastolic blood pressure 50 mm[Hg] Mimi Suppan TOPOLOGY PROFESSOR.HOT SAW OPERATOR Work Phone: [facility] 12-13-2024 14:15-0400 Heart rate 55 /min Mimi Suppan TOPOLOGY PROFESSOR.HOT SAW OPERATOR Work Phone: [facility] 12-13-2024 14:15-0400 SaO2% (BldA) [Mass fraction] 94 % Mimi Suppan TOPOLOGY PROFESSOR.HOT SAW OPERATOR Work Phone: [facility] 12-13-2024 14:15-0400 Systolic blood pressure 148 mm[Hg] Mimi Suppan TOPOLOGY PROFESSOR.HOT SAW OPERATOR Work Phone: [facility] 12-05-2024 15:02-0400 Body height 154.[address] Christopher Bonilla MD Work Phone: 4(511)642-816845 [place] [address] 12-05-2024 15:02-0400 Body mass index (BMI) [Ratio] 22.8 kg/m2 Dr. Christopher Bonilla MD Work Phone: 8(227)446-461345 [place] [address] 12-05-2024 15:02-0400 Body weight 54.[address] Christopher Bonilla MD Work Phone: 7(817)790-848645 [place] [address] 12-05-2024 15:02-0400 Diastolic blood pressure 63 mm[Hg] Dr. Christopher Bonilla MD Work Phone: 8(059)835-469945 [place] [address] 12-05-2024 15:02-0400 Heart rate 59 /min Dr. Christopher Bonilla MD Work Phone: 0(866)684-269645 [place] [address] 12-05-2024 15:02-0400 Respiratory rate 18 /min Dr. Christopher Bonilla MD Work Phone: 1(839)472-581145 [place] [address] 12-05-2024 15:02-0400 Systolic blood pressure 135 mm[Hg] Dr. Christopher Bonilla MD Work Phone: 3(941)544-117613 [place] [address] 05-31-2024 13:54-0500 Body mass index (BMI) [Ratio] 23.24 kg/m2 Christopher Bonilla MD Work Phone: [facility] 05-31-2024 13:54-0500 Body weight 55.79 kg Christopher Bonilla MD Work Phone: [facility] 05-31-2024 13:54-0500 Diastolic blood pressure 64 mm[Hg] Christopher Bonilla MD Work Phone: [facility] 05-31-2024 13:54-0500 Heart rate 91 /min Christopher Bonilla MD Work Phone: [facility] 05-31-2024 13:54-0500 SaO2% (BldA) [Mass fraction] 96 % Christopher Bonilla MD Work Phone: [facility] 05-31-2024 13:54-0500 Systolic blood pressure 108 mm[Hg] Christopher Bonilla MD Work Phone: [facility] 11-30-2023 13:06-0400 Body mass index (BMI) [Ratio] 23.62 kg/m2 Mimi Suppan TOPOLOGY PROFESSOR.BULL CHAIN OPERATOR Work Phone: [facility] 11-30-2023 13:06-0400 Body weight 56.7 kg Mimi Suppan TOPOLOGY PROFESSOR.BULL CHAIN OPERATOR Work Phone: [facility] 11-30-2023 13:06-0400 Diastolic blood pressure 60 mm[Hg] Mimi Suppan TOPOLOGY PROFESSOR.BULL CHAIN OPERATOR Work Phone: [facility] 11-30-2023 13:06-0400 Heart rate 54 /min Mimi Suppan TOPOLOGY PROFESSOR.BULL CHAIN OPERATOR Work Phone: [facility] 11-30-2023 13:06-0400 Respiratory rate 14 /min Mimi Suppan TOPOLOGY PROFESSOR.BULL CHAIN OPERATOR Work Phone: [facility] 11-30-2023 13:06-0400 SaO2% (BldA) [Mass fraction] 92 % Mimi Suppan TOPOLOGY PROFESSOR.BULL CHAIN OPERATOR Work Phone: [facility] 11-30-2023 13:06-0400 Systolic blood pressure 114 mm[Hg] Mimi Suppan TOPOLOGY PROFESSOR.BULL CHAIN OPERATOR Work Phone: [facility] 07-25-2023 14:09-0500 Body weight 56.7 kg Mimi Suppan TOPOLOGY PROFESSOR.BULL CHAIN OPERATOR Work Phone: [facility] 07-25-2023 14:09-0500 Diastolic blood pressure 64 mm[Hg] Mimi Suppan TOPOLOGY PROFESSOR.BULL CHAIN OPERATOR Work Phone: [facility] 07-25-2023 14:09-0500 Heart rate 57 /min Mimi Suppan TOPOLOGY PROFESSOR.BULL CHAIN OPERATOR Work Phone: [facility] 07-25-2023 14:09-0500 Respiratory rate 16 /min Mimi Suppan TOPOLOGY PROFESSOR.BULL CHAIN OPERATOR Work Phone: [facility] 07-25-2023 14:09-0500 SaO2% (BldA) [Mass fraction] 93 % Mimi Suppan TOPOLOGY PROFESSOR.BULL CHAIN OPERATOR Work Phone: [facility] 07-25-2023 14:09-0500 Systolic blood pressure 110 mm[Hg] Mimi Suppan TOPOLOGY PROFESSOR.BULL CHAIN OPERATOR Work Phone: [facility] 07-10-2023 14:43-0500 Body temperature 98.01 [degF] Mimi Suppan TOPOLOGY PROFESSOR.BULL CHAIN OPERATOR Work Phone: [facility] 07-10-2023 14:43-0500 Body weight 58.06 kg Mimi Suppan TOPOLOGY PROFESSOR.BULL CHAIN OPERATOR Work Phone: [facility] 07-10-2023 14:43-0500 Diastolic blood pressure 68 mm[Hg] Mimi Suppan TOPOLOGY PROFESSOR.BULL CHAIN OPERATOR Work Phone: [facility] 07-10-2023 14:43-0500 Heart rate 113 /min Mimi Suppan TOPOLOGY PROFESSOR.BULL CHAIN OPERATOR Work Phone: [facility] 07-10-2023 14:43-0500 Respiratory rate 24 /min Mimi Suppan TOPOLOGY PROFESSOR.BULL CHAIN OPERATOR Work Phone: [facility] 07-10-2023 14:43-0500 SaO2% (BldA) [Mass fraction] 93 % Mimi Encinas TOPOLOGY PROFESSOR.BULL CHAIN OPERATOR Work Phone: [facility] 07-10-2023 14:43-0500 Systolic blood pressure 110 mm[Hg] Mimi Encinas APRN.BULL CHAIN OPERATOR Work Phone: [facility] 06-15-2023 10:37-0500 Body height 154.[address] Christopher Bonilla Work Phone: [facility] 06-15-2023 10:37-0500 Body mass index (BMI) [Ratio] 24.5 kg/m2 Dr. Christopher Bonilla Work Phone: 0(313)745-735513 [place] [address] 06-15-2023 10:37-0500 Body temperature 97.4 [degF] Dr. Christopher Bonilla Work Phone: 5(953)891-844013 [place] [address] 06-15-2023 10:37-0500 Body weight 58.[address] Christopher Bonilla Work Phone: 6(877)020-401213 [place] [address] 06-15-2023 10:37-0500 Diastolic blood pressure 74 mm[Hg] Dr. Chrisotpher Bonilla Work Phone: 9(778)128-031713 [place] [address] 06-15-2023 10:37-0500 Heart rate 64 /min Dr. Christopher Bonilla Work Phone: 4(330)665-001745 [place] [address] 06-15-2023 10:37-0500 Respiratory rate 17 /min Dr. Christopher Bonilla Work Phone: 5(663)228-879845 [place] [address] 06-15-2023 10:37-0500 SaO2% (BldA) [Mass fraction] 97 % Dr. Christopher Bonilla Work Phone: [facility] 06-15-2023 10:37-0500 Systolic blood pressure 104 mm[Hg] Dr. hCristopher Bonilla Work Phone: [facility] 05-10-2023 13:43-0500 Diastolic blood pressure 72 mm[Hg] Christopher Bonilla MD Work Phone: [facility] 05-10-2023 13:43-0500 Systolic blood pressure 106 mm[Hg] Christopher Bonilla MD Work Phone: [facility] 05-10-2023 13:29-0500 Body height 154.9 cm Christopehr Bonilla MD Work Phone: [facility] 05-10-2023 13:29-0500 Body weight 56.34 kg Christopher Bonilla MD Work Phone: [facility] 05-10-2023 13:29-0500 Heart rate 70 /min Christopher Bonilla MD Work Phone: [facility] 05-10-2023 13:29-0500 SaO2% (BldA) [Mass fraction] 94 % Christopher Bonilla MD Work Phone: [facility] 02-14-2023 11:09-0400 Body temperature 97.9 [degF] Dr. Christopher Bonilla Work Phone: [facility] 02-14-2023 11:09-0400 Diastolic blood pressure 65 mm[Hg] Dr. Christopher Bonilla Work Phone: [facility] 02-14-2023 11:09-0400 Heart rate 64 /min Dr. Christopher Bonilla Work Phone: [facility] 02-14-2023 11:09-0400 Respiratory rate 16 /min Dr. Christopher Bonilla Work Phone: [facility] 02-14-2023 11:09-0400 SaO2% (BldA) [Mass fraction] 93 % Dr. Christopher Bonilla Work Phone: [facility] 02-14-2023 11:09-0400 Systolic blood pressure 113 mm[Hg] Dr. Christopher Bonilla Work Phone: [facility] 02-14-2023 10:12-0400 Body height 154.[address] Christopher Bonilla Work Phone: [facility] 02-14-2023 10:12-0400 Body mass index (BMI) [Ratio] 24.2 kg/m2 Dr. Christopher Bonilla Work Phone: [facility] 02-14-2023 10:12-0400 Body weight 58.[address] Christopher Bonilla Work Phone: [facility] 01-13-2023 18:59-0400 Body temperature 97.5 [degF] Shanta Logan APRN.HOT SAW OPERATOR Work Phone: [facility] 01-13-2023 18:59-0400 Body weight 58.6 kg Shanta Logan APRN.HOT SAW OPERATOR Work Phone: [facility] 01-13-2023 18:59-0400 Diastolic blood pressure 71 mm[Hg] Shanta Logan APRN.HOT SAW OPERATOR Work Phone: [facility] 01-13-2023 18:59-0400 Heart rate 61 /min Shanta Logan APRN.HOT SAW OPERATOR Work Phone: [facility] 01-13-2023 18:59-0400 Respiratory rate 18 /min Shanta Logan APRN.HOT SAW OPERATOR Work Phone: [facility] 01-13-2023 18:59-0400 SaO2% (BldA) [Mass fraction] 94 % Shanta Logan APRN.HOT SAW OPERATOR Work Phone: [facility] 01-13-2023 18:59-0400 Systolic blood pressure 142 mm[Hg] Shanta Logan APRN.HOT SAW OPERATOR Work Phone: [facility] 11-29-2022 15:14-0400 Body height 154.[address] Christopher Bonilla Work Phone: [facility] 11-29-2022 15:14-0400 Body mass index (BMI) [Ratio] 24.1 kg/m2 Dr. Christopher Bonilla Work Phone: [facility] 11-29-2022 15:14-0400 Body weight 58.[address] Christopher Bonilla Work Phone: [facility] 11-29-2022 15:14-0400 Diastolic blood pressure 72 mm[Hg] Dr. Christopher Bonilla Work Phone: 6(017)009-112245 [place] [address] 11-29-2022 15:14-0400 Respiratory rate 16 /min Dr. Christopher Bonilla Work Phone: 9(570)839-919145 [place] [address] 11-29-2022 15:14-0400 Systolic blood pressure 128 mm[Hg] Dr. Christopher Bonilla Work Phone: 0(216)284-047313 [place] [address] 11-29-2022 11:14-0400 Body mass index (BMI) [Ratio] 24.1 kg/m2 Dr. Christopher Bonilla Work Phone: 9(802)659-946645 [place] [address] 11-29-2022 11:14-0400 Body temperature 98.1 [degF] Dr. Christopher Bonilla Work Phone: 7(141)308-872613 [place] [address] 11-29-2022 11:14-0400 Body weight 58.[address] Christopher Bonilla Work Phone: 8(054)234-817013 [place] [address] 11-29-2022 11:14-0400 Diastolic blood pressure 71 mm[Hg] Dr. Christopher Bonilla Work Phone: 1(073)344-795745 [place] [address] 11-29-2022 11:14-0400 Heart rate 60 /min Dr. Christopher Bonilla Work Phone: 7(879)945-054113 [place] [address] 11-29-2022 11:14-0400 Respiratory rate 16 /min Dr. Christopher Bonilla Work Phone: 3(061)050-741745 [place] [address] 11-29-2022 11:14-0400 SaO2% (BldA) [Mass fraction] 96 % Dr. Christopher Bonilla Work Phone: [facility] 11-29-2022 11:14-0400 Systolic blood pressure 117 mm[Hg] Dr. Christopher Bonilla Work Phone: [facility] 11-08-2022 15:28-0400 Body height 154.9 cm Christopher Bonilla MD Work Phone: [facility] 11-08-2022 15:28-0400 Body weight 60.33 kg Christopher Bonilla MD Work Phone: [facility] 11-08-2022 15:28-0400 Diastolic blood pressure 56 mm[Hg] Christopher Bonilla MD Work Phone: [facility] 11-08-2022 15:28-0400 Heart rate 57 /min Christopher Bonilla MD Work Phone: [facility] 11-08-2022 15:28-0400 SaO2% (BldA) [Mass fraction] 95 % Christopher Bonilla MD Work Phone: [facility] 11-08-2022 15:28-0400 Systolic blood pressure 122 mm[Hg] Christopher Bonilla MD Work Phone: [facility] 09-19-2022 14:08-0400 Body height 154.9 cm NA Mehta PA-C Work Phone: [facility] 09-19-2022 14:08-0400 Body weight 60.33 kg NA Mehta PA-C Work Phone: [facility] 09-19-2022 14:08-0400 Diastolic blood pressure 84 mm[Hg] NA Mehta PA-C Work Phone: [facility] 09-19-2022 14:08-0400 Heart rate 54 /min NA Mehta PA-C Work Phone: [facility] 09-19-2022 14:08-0400 SaO2% (BldA) [Mass fraction] 96 % NA Mehta PA-C Work Phone: [facility] 09-19-2022 14:08-0400 Systolic blood pressure 110 mm[Hg] NA Mehta PA-C Work Phone: [facility] 09-01-2022 14:45-0400 Body weight 59.88 kg Christopher Bonilla MD Work Phone: [facility] 09-01-2022 14:45-0400 Diastolic blood pressure 62 mm[Hg] Christopher Bonilla MD Work Phone: [facility] 09-01-2022 14:45-0400 Heart rate 62 /min Christopher Bonilla MD Work Phone: [facility] 09-01-2022 14:45-0400 SaO2% (BldA) [Mass fraction] 96 % Christopher Bonilla MD Work Phone: [facility] 09-01-2022 14:45-0400 Systolic blood pressure 122 mm[Hg] Christopher Bonilla MD Work Phone: [facility] 07-28-2022 13:46-0500 Body weight 62.14 kg Christopher Bonilla MD Work Phone: [facility] 07-28-2022 13:46-0500 Diastolic blood pressure 62 mm[Hg] Christopher Bonilla MD Work Phone: [facility] 07-28-2022 13:46-0500 Heart rate 56 /min Christopher Bonilla MD Work Phone: [facility] 07-28-2022 13:46-0500 SaO2% (BldA) [Mass fraction] 95 % Christopher Bonilla MD Work Phone: [facility] 07-28-2022 13:46-0500 Systolic blood pressure 104 mm[Hg] Christopher Bonilla MD Work Phone: [facility] 06-29-2022 15:29-0500 Body temperature 97.5 [degF] Shanta Logan APRN.HOT SAW OPERATOR Work Phone: [facility] 06-29-2022 15:29-0500 Body weight 62.23 kg Shanta Logan APRN.HOT SAW OPERATOR Work Phone: [facility] 06-29-2022 15:29-0500 Diastolic blood pressure 60 mm[Hg] Shanta Logan APRN.HOT SAW OPERATOR Work Phone: [facility] 06-29-2022 15:29-0500 Heart rate 90 /min Shanta Logan APRN.HOT SAW OPERATOR Work Phone: [facility] 06-29-2022 15:29-0500 Respiratory rate 21 /min Shanta Logan APRN.HOT SAW OPERATOR Work Phone: [facility] 06-29-2022 15:29-0500 SaO2% (BldA) [Mass fraction] 94 % Shanta Logan APRN.HOT SAW OPERATOR Work Phone: [facility] 06-29-2022 15:29-0500 Systolic blood pressure 132 mm[Hg] Shanta Logan APRN.CNP Work Phone: [facility] 06-27-2022 15:24-0500 Body height 154.[address] Flaquito Mariee Work Phone: [facility] 06-27-2022 15:24-0500 Body mass index (BMI) [Ratio] 26.3 kg/m2 Dr. Flaquito Mariee Work Phone: [facility] 06-27-2022 15:24-0500 Body weight 63.[address] Flaquito Mariee Work Phone: [facility] 06-27-2022 15:24-0500 Diastolic blood pressure 64 mm[Hg] Dr. Flaquito Mariee Work Phone: [facility] 06-27-2022 15:24-0500 Heart rate 58 /min Dr. Flaquito Mariee Work Phone: [facility] 06-27-2022 15:24-0500 Respiratory rate 18 /min Dr. Flaquito Mariee Work Phone: [facility] 06-27-2022 15:24-0500 SaO2% (BldA) [Mass fraction] 94 % Dr. Flaquito Mariee Work Phone: [facility] 06-27-2022 15:24-0500 Systolic blood pressure 119 mm[Hg] Dr. Flaquito Mariee Work Phone: [facility] 06-20-2022 13:53-0500 Body mass index (BMI) [Ratio] 25.3 kg/m2 Dr. Flaquito Mariee Work Phone: [facility] 06-20-2022 13:53-0500 Body weight 60.[address] Flaquito Mariee Work Phone: [facility] 06-20-2022 13:53-0500 Diastolic blood pressure 75 mm[Hg] Dr. Flaquito Mariee Work Phone: [facility] 06-20-2022 13:53-0500 Respiratory rate 18 /min Dr. Flaquito Mariee Work Phone: [facility] 06-20-2022 13:53-0500 Systolic blood pressure 123 mm[Hg] Dr. Flaquito Mariee Work Phone: [facility] 05-23-2022 09:57-0500 Body mass index (BMI) [Ratio] 25.4 kg/m2 Dr. Flaquito Mariee Work Phone: [facility] 05-23-2022 09:57-0500 Body temperature 98.2 [degF] Dr. Flaquito Mariee Work Phone: [facility] 05-23-2022 09:57-0500 Body weight 61.[address] Flaquito Mariee Work Phone: [facility] 05-23-2022 09:57-0500 Diastolic blood pressure 64 mm[Hg] Dr. Flaquito Mariee Work Phone: [facility] 05-23-2022 09:57-0500 Heart rate 59 /min Dr. Flaquito Mariee Work Phone: [facility] 05-23-2022 09:57-0500 Respiratory rate 18 /min Dr. Flaquito Mariee Work Phone: [facility] 05-23-2022 09:57-0500 SaO2% (BldA) [Mass fraction] 96 % Dr. Flaquito Mariee Work Phone: [facility] 05-23-2022 09:57-0500 Systolic blood pressure 126 mm[Hg] Dr. Flaquito Mariee Work Phone: [facility] 05-17-2022 14:25-0500 Body temperature 97.81 [degF] Shannon Chiu APRN.HOT SAW OPERATOR Work Phone: [facility] 05-17-2022 14:25-0500 Body weight 61.96 kg Shannon Chiu APRN.HOT SAW OPERATOR Work Phone: [facility] 05-17-2022 14:25-0500 Diastolic blood pressure 82 mm[Hg] Shannon Aram TOPOLOGY PROFESSOR.HOT SAW OPERATOR Work Phone: [facility] 05-17-2022 14:25-0500 Heart rate 58 /min Shannon Aram TOPOLOGY PROFESSOR.HOT SAW OPERATOR Work Phone: [facility] 05-17-2022 14:25-0500 Respiratory rate 18 /min Shannon Aram TOPOLOGY PROFESSOR.HOT SAW OPERATOR Work Phone: [facility] 05-17-2022 14:25-0500 SaO2% (BldA) [Mass fraction] 94 % Shannon Aram TOPOLOGY PROFESSOR.HOT SAW OPERATOR Work Phone: [facility] 05-17-2022 14:25-0500 Systolic blood pressure 132 mm[Hg] Shannon Aram TOPOLOGY PROFESSOR.HOT SAW OPERATOR Work Phone: [facility] 04-19-2022 11:57-0500 Body height 154.9 cm Christopher Bonilla MD Work Phone: [facility] 04-19-2022 11:57-0500 Body weight 61.05 kg Christopher Bonilla MD Work Phone: [facility] 04-19-2022 11:57-0500 Diastolic blood pressure 56 mm[Hg] Christopher Bonilla MD Work Phone: [facility] 04-19-2022 11:57-0500 Heart rate 61 /min Christopher Bonilla MD Work Phone: [facility] 04-19-2022 11:57-0500 SaO2% (BldA) [Mass fraction] 97 % Christopher Bonilla MD Work Phone: [facility] 04-19-2022 11:57-0500 Systolic blood pressure 110 mm[Hg] Christopher Bonilla MD Work Phone: [facility] 03-15-2022 14:17-0400 Body weight 59.42 kg NA Tyson WANG-C Work Phone: [facility] 03-15-2022 14:17-0400 Diastolic blood pressure 50 mm[Hg] NA Mehta PA-C Work Phone: [facility] 03-15-2022 14:17-0400 Heart rate 88 /min NA Mehta PA-C Work Phone: [facility] 03-15-2022 14:17-0400 Respiratory rate 20 /min NA Mehta PA-C Work Phone: [facility] 03-15-2022 14:17-0400 SaO2% (BldA) [Mass fraction] 98 % NA Mehta PA-C Work Phone: [facility] 03-15-2022 14:17-0400 Systolic blood pressure 108 mm[Hg] NA Mehta PA-C Work Phone: [facility] 03-02-2022 14:02-0400 Body temperature 97.7 [degF] Tia Most RN Work Phone: [facility] 03-02-2022 14:02-0400 Body weight 58.51 kg Tia Most RN Work Phone: [facility] 03-02-2022 14:02-0400 Diastolic blood pressure 60 mm[Hg] Tia Most RN Work Phone: [facility] 03-02-2022 14:02-0400 Heart rate 56 /min Tia Most RN Work Phone: [facility] 03-02-2022 14:02-0400 Respiratory rate 16 /min Tia Most RN Work Phone: [facility] 03-02-2022 14:02-0400 SaO2% (BldA) [Mass fraction] 96 % Tia Most RN Work Phone: [facility] 03-02-2022 14:02-0400 Systolic blood pressure 118 mm[Hg] Tia Most RN Work Phone: [facility] 02-24-2022 12:28-0400 Body temperature 97.81 [degF] Tia Most RN Work Phone: [facility] 02-24-2022 12:28-0400 Body weight 58.06 kg Tia Most RN Work Phone: [facility] 02-24-2022 12:28-0400 Diastolic blood pressure 64 mm[Hg] Tia Harding RN Work Phone: [facility] 02-24-2022 12:28-0400 Heart rate 64 /min Tiamiladys Harding RN Work Phone: [facility] 02-24-2022 12:28-0400 Respiratory rate 16 /min Tiamiladys Harding RN Work Phone: [facility] 02-24-2022 12:28-0400 SaO2% (BldA) [Mass fraction] 95 % Tiamiladys Harding RN Work Phone: [facility] 02-24-2022 12:28-0400 Systolic blood pressure 118 mm[Hg] Tia Harding RN Work Phone: [facility] 02-22-2022 08:29-0400 Body height 154.[address] Christopher Bonilla Work Phone: [facility] Work Phone: 02-22-2022 08:29-0400 Body mass index (BMI) [Ratio] 24 kg/m2 Dr. Christopher Bonilla Work Phone: [facility] Work Phone: 02-22-2022 08:29-0400 Body temperature 98.4 [degF] Dr. Christopher Bonilla Work Phone: [facility] Work Phone: 02-22-2022 08:29-0400 Body weight 57.[address] Christopher Bonilla Work Phone: [facility] Work Phone: 02-22-2022 08:29-0400 Diastolic blood pressure 59 mm[Hg] Dr. Christopher Bonilla Work Phone: [facility] Work Phone: 02-22-2022 08:29-0400 Heart rate 64 /min Dr. Christopher Bonilla Work Phone: [facility] Work Phone: 02-22-2022 08:29-0400 Respiratory rate 16 /min Dr. Christopher Bonilla Work Phone: [facility] Work Phone: 02-22-2022 08:29-0400 SaO2% (BldA) [Mass fraction] 95 % Dr. Christopher Bonilla Work Phone: [facility] Work Phone: 02-22-2022 08:29-0400 Systolic blood pressure 116 mm[Hg] Dr. Christopher Bonilla Work Phone: [facility] Work Phone: 02-18-2022 13:39-0400 Diastolic blood pressure 56 mm[Hg] Manju Larson PT Work Phone: [facility] 02-18-2022 13:39-0400 Heart rate 56 /min Manju Larson PT Work Phone: [facility] 02-18-2022 13:39-0400 SaO2% (BldA) [Mass fraction] 96 % Manju Larson PT Work Phone: [facility] 02-18-2022 13:39-0400 Systolic blood pressure 120 mm[Hg] Manju Larson PT Work Phone: [facility] 02-18-2022 13:15-0400 Body temperature 97.7 [degF] Manju Larson PT Work Phone: [facility] 02-18-2022 13:15-0400 Body weight 58.06 kg Manju Larson PT Work Phone: [facility] 02-18-2022 13:15-0400 Respiratory rate 16 /min Manju Larson PT Work Phone: [facility] 02-15-2022 13:35-0400 Body temperature 97.5 [degF] Tia Harding RN Work Phone: [facility] 02-15-2022 13:35-0400 Body weight 58.51 kg Gemma Carter INSTITUTIONAL ASSET MANAGER Work Phone: [facility] 02-15-2022 13:35-0400 Diastolic blood pressure 52 mm[Hg] Tiaberry Harding RN Work Phone: [facility] 02-15-2022 13:35-0400 Heart rate 60 /min Tiamiladys Harding RN Work Phone: [facility] 02-15-2022 13:35-0400 Respiratory rate 16 /min Tiamiladys Harding RN Work Phone: [facility] 02-15-2022 13:35-0400 SaO2% (BldA) [Mass fraction] 95 % Tiamiladys Harding RN Work Phone: [facility] 02-15-2022 13:35-0400 Systolic blood pressure 118 mm[Hg] Tiamiladys Harding RN Work Phone: [facility] 02-15-2022 13:10-0400 Heart rate 60 /min Gemma Carter INSTITUTIONAL ASSET MANAGER Work Phone: [facility] 02-15-2022 13:10-0400 SaO2% (BldA) [Mass fraction] 95 % Gemma Carter INSTITUTIONAL ASSET MANAGER Work Phone: [facility] 02-15-2022 13:00-0400 Body temperature 97.7 [degF] Gemma Carter INSTITUTIONAL ASSET MANAGER Work Phone: [facility] 02-15-2022 13:00-0400 Diastolic blood pressure 58 mm[Hg] Gemma Carter INSTITUTIONAL ASSET MANAGER Work Phone: [facility] 02-15-2022 13:00-0400 Respiratory rate 18 /min Gemma Carter INSTITUTIONAL ASSET MANAGER Work Phone: [facility] 02-15-2022 13:00-0400 Systolic blood pressure 110 mm[Hg] Gemma Carter INSTITUTIONAL ASSET MANAGER Work Phone: [facility] 02-14-2022 14:03-0400 Body mass index (BMI) [Ratio] 24.7 kg/m2 Dr. Christopher Bonilla Work Phone: [facility] Work Phone: 02-14-2022 14:03-0400 Body weight 59.[address] Christopher Bonilla Work Phone: [facility] Work Phone: 02-14-2022 14:03-0400 Diastolic blood pressure 58 mm[Hg] Dr. Christopher Bonilla Work Phone: [facility] Work Phone: 02-14-2022 14:03-0400 Heart rate 64 /min Dr. Christopher Bonilla Work Phone: [facility] Work Phone: 02-14-2022 14:03-0400 Respiratory rate 18 /min Dr. Christopher Bonilla Work Phone: [facility] Work Phone: 02-14-2022 14:03-0400 Systolic blood pressure 120 mm[Hg] Dr. Christopher Bonilla Work Phone: [facility] Work Phone: 02-11-2022 11:00-0400 Body weight 58.06 kg Manju Larson PT Work Phone: [facility] 02-11-2022 11:00-0400 Heart rate 60 /min Manju Larson PT Work Phone: [facility] 02-11-2022 11:00-0400 SaO2% (BldA) [Mass fraction] 88 % Manju Larson PT Work Phone: [facility] 02-11-2022 10:50-0400 Body temperature 98.2 [degF] Manju Larson PT Work Phone: [facility] 02-11-2022 10:50-0400 Diastolic blood pressure 60 mm[Hg] Manju Larson PT Work Phone: [facility] 02-11-2022 10:50-0400 Respiratory rate 16 /min Manju Larson PT Work Phone: [facility] 02-11-2022 10:50-0400 Systolic blood pressure 128 mm[Hg] Manju Larson PT Work Phone: [facility] 02-09-2022 12:29-0400 Body temperature 98.01 [degF] Maureen Bowser RN Work Phone: [facility] 02-09-2022 12:29-0400 Body weight 59.88 kg Maureen Bowser RN Work Phone: [facility] 02-09-2022 12:29-0400 Diastolic blood pressure 58 mm[Hg] Maureen Bowser RN Work Phone: [facility] 02-09-2022 12:29-0400 Heart rate 58 /min Maureen Bowser RN Work Phone: [facility] 02-09-2022 12:29-0400 Respiratory rate 20 /min Maureen Bowser RN Work Phone: [facility] 02-09-2022 12:29-0400 SaO2% (BldA) [Mass fraction] 94 % Maureen Bowser RN Work Phone: [facility] 02-09-2022 12:29-0400 Systolic blood pressure 128 mm[Hg] Maureen Bowser RN Work Phone: [facility] 01-31-2022 14:02-0400 Inhaled oxygen flow rate 3 L/min Dr. Christopher Bonilla Work Phone: [facility] Work Phone: 01-31-2022 13:59-0400 Body temperature 98.6 [degF] Dr. Christopher Bonilla Work Phone: [facility] Work Phone: 01-31-2022 13:59-0400 Diastolic blood pressure 54 mm[Hg] Dr. Christopher Bonilla Work Phone: [facility] Work Phone: 01-31-2022 13:59-0400 Heart rate 72 /min Dr. Christopher Bonilla Work Phone: [facility] Work Phone: 01-31-2022 13:59-0400 Respiratory rate 20 /min Dr. Christopher Bonilla Work Phone: [facility] Work Phone: 01-31-2022 13:59-0400 SaO2% (BldA) [Mass fraction] 95 % Dr. Christopher Bonilla Work Phone: [facility] Work Phone: 01-31-2022 13:59-0400 Systolic blood pressure 116 mm[Hg] Dr. Christopher Bonilla Work Phone: [facility] Work Phone: 01-31-2022 06:00-0400 Body weight 62.[address] Christopher Bonilla Work Phone: [facility] Work Phone: 01-27-2022 14:26-0400 Body height 154.[address] Christopher Bonilla Work Phone: [facility] Work Phone: 01-26-2022 08:35-0400 Body mass index (BMI) [Ratio] 25 kg/m2 Dr. Christopher Bonilla Work Phone: [facility] Work Phone: 01-14-2022 13:32-0400 Body weight 60.33 kg Dalila Jensen TOPOLOGY PROFESSOR.HOT SAW OPERATOR Work Phone: [facility] 01-14-2022 13:32-0400 Diastolic blood pressure 60 mm[Hg] Dalila Jensen TOPOLOGY PROFESSOR.HOT SAW OPERATOR Work Phone: [facility] 01-14-2022 13:32-0400 Heart rate 52 /min Dalila Jensen TOPOLOGY PROFESSOR.HOT SAW OPERATOR Work Phone: [facility] 01-14-2022 13:32-0400 Respiratory rate 18 /min Dalila Jensen TOPOLOGY PROFESSOR.HOT SAW OPERATOR Work Phone: [facility] 01-14-2022 13:32-0400 SaO2% (BldA) [Mass fraction] 95 % Dalila Jensen TOPOLOGY PROFESSOR.HOT SAW OPERATOR Work Phone: [facility] 01-14-2022 13:32-0400 Systolic blood pressure 110 mm[Hg] Dalila Jensen TOPOLOGY PROFESSOR.HOT SAW OPERATOR Work Phone: [facility] 12-01-2021 07:12-0400 Body mass index (BMI) [Ratio] 24.5 kg/m2 Dr. Christopher Bonilla Work Phone: [facility] Work Phone: 12-01-2021 07:12-0400 Body temperature 97.4 [degF] Dr. Christopher Bonilla Work Phone: [facility] Work Phone: 12-01-2021 07:12-0400 Body weight 58.[address] Christopher Bonilla Work Phone: [facility] Work Phone: 12-01-2021 07:12-0400 Diastolic blood pressure 62 mm[Hg] Dr. Christopher Bonilla Work Phone: [facility] Work Phone: 12-01-2021 07:12-0400 Heart rate 57 /min Dr. Christopher Bonilla Work Phone: [facility] Work Phone: 12-01-2021 07:12-0400 Respiratory rate 16 /min Dr. Christopher Bonilla Work Phone: [facility] Work Phone: 12-01-2021 07:12-0400 SaO2% (BldA) [Mass fraction] 97 % Dr. Christopher Bonilla Work Phone: [facility] Work Phone: 12-01-2021 07:12-0400 Systolic blood pressure 128 mm[Hg] Dr. Christopher Bonilla Work Phone: [facility] Work Phone: 11-08-2021 14:49-0400 Body mass index (BMI) [Ratio] 24.9 kg/m2 Dr. Christopher Bonilla Work Phone: [facility] Work Phone: 11-08-2021 14:49-0400 Body weight 59.[address] Christopher Bonilla Work Phone: [facility] Work Phone: 11-08-2021 14:49-0400 Diastolic blood pressure 57 mm[Hg] Dr. Christopher Bonilla Work Phone: [facility] Work Phone: 11-08-2021 14:49-0400 Heart rate 46 /min Dr. Christopher Bonilla Work Phone: [facility] Work Phone: 11-08-2021 14:49-0400 Respiratory rate 18 /min Dr. Christopher Bonilla Work Phone: [facility] Work Phone: 11-08-2021 14:49-0400 SaO2% (BldA) [Mass fraction] 95 % Dr. Christopher Bonilla Work Phone: [facility] Work Phone: 11-08-2021 14:49-0400 Systolic blood pressure 118 mm[Hg] Dr. Christopher Bonilla Work Phone: [facility] Work Phone: 10-26-2021 11:22-0400 Body height 154.[address] Christopher Bonilla Work Phone: [facility] Work Phone: 10-26-2021 11:22-0400 Body weight 58.[address] Christopher Bonilla Work Phone: [facility] Work Phone: 10-26-2021 11:22-0400 Heart rate 56 /min Dr. Christopher Bonilla Work Phone: [facility] Work Phone: 10-26-2021 11:22-0400 SaO2% (BldA) [Mass fraction] 94 % Dr. Christopher Bonilla Work Phone: [facility] Work Phone: 10-04-2021 15:00-0400 Heart rate 60 /min Christopher Bonilla MD Work Phone: [facility] 10-04-2021 14:36-0400 Body weight 59.42 kg Christopher Bonilla MD Work Phone: [facility] 10-04-2021 14:36-0400 Diastolic blood pressure 76 mm[Hg] Christopher Bonilla MD Work Phone: [facility] 10-04-2021 14:36-0400 Respiratory rate 16 /min Christopher Bonilla MD Work Phone: [facility] 10-04-2021 14:36-0400 SaO2% (BldA) [Mass fraction] 96 % Christopher Bonilla MD Work Phone: [facility] 10-04-2021 14:36-0400 Systolic blood pressure 118 mm[Hg] Christopher Bonilla MD Work Phone: [facility] 09-16-2021 11:00-0400 Diastolic blood pressure 53 mm[Hg] Dr. Christopher Bonilla Work Phone: [facility] Work Phone: 09-16-2021 11:00-0400 Heart rate 52 /min Dr. Christopher Bonilla Work Phone: [facility] Work Phone: 09-16-2021 11:00-0400 Respiratory rate 20 /min Dr. Christopher Bonilla Work Phone: [facility] Work Phone: 09-16-2021 11:00-0400 Systolic blood pressure 115 mm[Hg] Dr. Christopher Bonilla Work Phone: [facility] Work Phone: 09-16-2021 09:40-0400 Diastolic blood pressure 65 mm[Hg] Dr. Christopher Bonilla Work Phone: [facility] Work Phone: 09-16-2021 09:40-0400 Heart rate 55 /min Dr. Christopher Bonilla Work Phone: [facility] Work Phone: 09-16-2021 09:40-0400 Respiratory rate 21 /min Dr. Christopher Bonilla Work Phone: [facility] Work Phone: 09-16-2021 09:40-0400 SaO2% (BldA) [Mass fraction] 92 % Dr. Christopher Bonilla Work Phone: [facility] Work Phone: 09-16-2021 09:40-0400 Systolic blood pressure 130 mm[Hg] Dr. Chrsitopher Bonilla Work Phone: [facility] Work Phone: 09-16-2021 08:08-0400 Body height 154.[address] Christopher Bonilla Work Phone: [facility] Work Phone: 09-16-2021 08:08-0400 Body mass index (BMI) [Ratio] 24.5 kg/m2 Dr. Christopher Bonilla Work Phone: [facility] Work Phone: 09-16-2021 08:08-0400 Body temperature 98.1 [degF] Dr. Christopher Bonilla Work Phone: [facility] Work Phone: 09-16-2021 08:08-0400 Body weight 58.[address] Christopher Bonilla Work Phone: [facility] Work Phone: 08-16-2021 15:07-0400 Body height 154.[address] Christopher Bonilla Work Phone: [facility] Work Phone: 08-16-2021 15:07-0400 Body mass index (BMI) [Ratio] 25.1 kg/m2 Dr. Christopher Bonilla Work Phone: [facility] Work Phone: 08-16-2021 15:07-0400 Body weight 60.[address] Christopher Bonilla Work Phone: [facility] Work Phone: 08-16-2021 15:07-0400 Diastolic blood pressure 69 mm[Hg] Dr. Christopher Bonilla Work Phone: [facility] Work Phone: 08-16-2021 15:07-0400 Heart rate 73 /min Dr. Christopher Bonilla Work Phone: [facility] Work Phone: 08-16-2021 15:07-0400 Respiratory rate 18 /min Dr. Christopher Bonilla Work Phone: [facility] Work Phone: 08-16-2021 15:07-0400 Systolic blood pressure 104 mm[Hg] Dr. Christopher Bonilla Work Phone: [facility] Work Phone: 08-06-2021 08:23-0500 Body mass index (BMI) [Ratio] 25.3 kg/m2 Dr. Christopher Bonilla Work Phone: [facility] Work Phone: 08-06-2021 08:23-0500 Body temperature 98.2 [degF] Dr. Christopher Bonilla Work Phone: [facility] Work Phone: 08-06-2021 08:23-0500 Body weight 60.[address] Christopher Bonilla Work Phone: [facility] Work Phone: 08-06-2021 08:23-0500 Diastolic blood pressure 67 mm[Hg] Dr. Christopher Bonilla Work Phone: [facility] Work Phone: 08-06-2021 08:23-0500 Heart rate 105 /min Dr. Christopher Bonilla Work Phone: [facility] Work Phone: 08-06-2021 08:23-0500 Respiratory rate 16 /min Dr. Christopher Bonilla Work Phone: [facility] Work Phone: 08-06-2021 08:23-0500 SaO2% (BldA) [Mass fraction] 94 % Dr. Christopher Bonilla Work Phone: [facility] Work Phone: 08-06-2021 08:23-0500 Systolic blood pressure 105 mm[Hg] Dr. Christopher Bonilla Work Phone: [facility] Work Phone: 07-22-2021 14:00-0500 Body temperature 97.8 [degF] Dr. Christopher Bonilla Work Phone: [facility] Work Phone: 07-22-2021 14:00-0500 Diastolic blood pressure 68 mm[Hg] Dr. Christopher Bonilla Work Phone: [facility] Work Phone: 07-22-2021 14:00-0500 Heart rate 95 /min Dr. Christopher Bonilla Work Phone: [facility] Work Phone: 07-22-2021 14:00-0500 Respiratory rate 16 /min Dr. Christopher Bonilla Work Phone: [facility] Work Phone: 07-22-2021 14:00-0500 SaO2% (BldA) [Mass fraction] 97 % Dr. Christopher Bonilla Work Phone: [facility] Work Phone: 07-22-2021 14:00-0500 Systolic blood pressure 110 mm[Hg] Dr. Christopher Bonilla Work Phone: [facility] Work Phone: 07-22-2021 02:40-0500 Body weight 59.[address] Christopher Bonilla Work Phone: [facility] Work Phone: 07-16-2021 05:00-0500 Body mass index (BMI) [Ratio] 26.4 kg/m2 Dr. Christopher Bonilla Work Phone: [facility] Work Phone: 07-09-2021 10:52-0500 SaO2% (BldA) [Mass fraction] 90 % Dr. Christopher Bonilla Work Phone: [facility] Work Phone: 07-09-2021 10:43-0500 Body temperature 98.5 [degF] Dr. Christopher Bonilla Work Phone: [facility] Work Phone: 07-09-2021 10:43-0500 Diastolic blood pressure 66 mm[Hg] Dr. Christopher Bonilla Work Phone: [facility] Work Phone: 07-09-2021 10:43-0500 Heart rate 87 /min Dr. Christopher Bonilla Work Phone: [facility] Work Phone: 07-09-2021 10:43-0500 Respiratory rate 16 /min Dr. Christopher Bonilla Work Phone: [facility] Work Phone: 07-09-2021 10:43-0500 Systolic blood pressure 109 mm[Hg] Dr. Christopher Bonilla Work Phone: [facility] Work Phone: 07-09-2021 05:00-0500 Body weight 59.[address] Christopher Bonilla Work Phone: [facility] Work Phone: 07-07-2021 18:26-0500 Body mass index (BMI) [Ratio] 24.7 kg/m2 Dr. Christopher Bonilla Work Phone: [facility] Work Phone: 06-23-2021 11:20-0500 Body temperature 97.4 [degF] Dr. Christopher Bonilla Work Phone: [facility] Work Phone: 06-23-2021 11:20-0500 Diastolic blood pressure 69 mm[Hg] Dr. Christopher Bonilla Work Phone: [facility] Work Phone: 06-23-2021 11:20-0500 Heart rate 82 /min Dr. Christopher Bonilla Work Phone: [facility] Work Phone: 06-23-2021 11:20-0500 Respiratory rate 18 /min Dr. Christopher Bonilla Work Phone: [facility] Work Phone: 06-23-2021 11:20-0500 SaO2% (BldA) [Mass fraction] 94 % Dr. Christopher Bonilla Work Phone: [facility] Work Phone: 06-23-2021 11:20-0500 Systolic blood pressure 104 mm[Hg] Dr. Christopher Bonilla Work Phone: [facility] Work Phone: 06-23-2021 02:29-0500 Body weight 58.[address] Christopher Bonilla Work Phone: [facility] Work Phone: 06-22-2021 03:00-0500 Body mass index (BMI) [Ratio] 24.7 kg/m2 Dr. Christopher Bonilla Work Phone: [facility] Work Phone: 06-19-2021 08:00-0500 Inhaled oxygen concentration 2 % Dr. Christopher Bonilla Work Phone: [facility] Work Phone: 05-14-2021 13:57-0500 Body mass index (BMI) [Ratio] 24.6 kg/m2 Dr. Christopher Bonilla Work Phone: [facility] Work Phone: 05-14-2021 13:57-0500 Body weight 57.[address] Christopher Bonilla Work Phone: [facility] Work Phone: 05-14-2021 13:57-0500 Diastolic blood pressure 74 mm[Hg] Dr. Christopher Bonilla Work Phone: [facility] Work Phone: 05-14-2021 13:57-0500 Heart rate 91 /min Dr. Christopher Bonilla Work Phone: [facility] Work Phone: 05-14-2021 13:57-0500 Respiratory rate 18 /min Dr. Christopher Bonilla Work Phone: [facility] Work Phone: 05-14-2021 13:57-0500 SaO2% (BldA) [Mass fraction] 94 % Dr. Christopher Bonilla Work Phone: [facility] Work Phone: 05-14-2021 13:57-0500 Systolic blood pressure 116 mm[Hg] Dr. Christopher Bonilla Work Phone: [facility] Work Phone: Encounters Encounter Date Encounter Type Care Provider Facility Start: 04-15-2025 End: 04-16-2025 Emergency department patient visit Christopher Lavallette Facility:[facility] Start: 04-15-2025 End: 04-15-2025 ambulatory CHRISTOPHER BONILLA Facility:[facility] Start: 04-11-2025 ambulatory [facility] Facility :[facility] Start: 04-06-2025 End: 04-08-2025 Evaluation and management of inpatient Oj Lorenzo Facility:[facility] Start: 04-06-2025 ambulatory Bony Meza Facility :[facility] [place] Start: 03-27-2025 ambulatory John Last Facility :[facility] Start: 03-26-2025 End: 03-26-2025 ambulatory CHRISTOPHER Tyler KORI Facility:[facility] Start: 03-11-2025 End: 03-11-2025 ambulatory [facility] Facility:[facility] Start: 03-04-2025 Patient encounter procedure John Last PA -Radiology [facility] Work Phone: Start: 03-04-2025 End: 03-04-2025 Patient encounter procedure John Last PA -[facility] Work Phone: Start: 03-04-2025 End: 03-04-[address] Christopher Bonilla MD Work Phone: -[facility] Start: 03-04-2025 End: 03-04-2025 ambulatory John Last Facility:[facility] Start: 02-21-2025 End: 02-21-2025 ambulatory CHRISTOPHER Tyler KORI Facility:[facility] Start: 02-18-2025 End: 02-18-2025 Telephone encounter Christopher Bonilla MD Work Phone: [facility] [place] Comment on above: Anticoagulation Start: 02-07-2025 End: 02-07-2025 Telephone encounter Dalila Jensen APRN.HOT SAW OPERATOR Work Phone: [facility] Comment on above: OV notes faxed [facility] Start: 02-05-2025 End: 02-05-2025 Transitional care manage srvc 14 day discharge Dalila Jensen APRN.HOT SAW OPERATOR Work Phone: [facility] Comment on above: Chronic obstructive pulmonary disease, unspecified COPD type (HCC) (Primary Dx); Acute on chronic congestive heart failure, unspecified heart failure type (HCC); Pulmonary emphysema, unspecified emphysema type (HCC); Hypertension, essential; Pulmonary hypertension (HCC) Start: 02-05-2025 End: 02-05-2025 ambulatory DALILABerry JENSEN Facility:[facility] Start: 02-04-2025 End: 02-05-2025 Telephone encounter Christopher Bonilla MD Work Phone: [facility] Comment on above: Patient Update Start: 01-29-2025 End: 01-31-2025 Telephone encounter Christopher Bonilla MD Work Phone: [facility] Comment on above: PT- [facility] HH POC and p t update Start: 01-27-2025 End: 01-28-2025 Patient Outreach Ashley Aldridgeemerita BLANTONN [facility] Comment on above: Transition Of Care correction plan of care; Refill Request Start: 01-25-2025 Non-patient / Non-visit Dr. Alida Mcpherson [facility] Work Phone: Start: 01-24-2025 End: 01-24-2025 Telephone encounter Christopher Bonilla MD Work Phone: [facility] Comment on above: Orders Start: 01-24-2025 Non-patient / Non-[facility] Work Phone: Start: 01-23-2025 Non-patient / Non-visit [facility] Work Phone: Start: 01-22-2025 ambulatory Philip Kamara Fac ility:[facility] Start: 01-22-2025 End: 01-25-2025 Evaluation and management of inpatient Dr. Philip Kamara DO -Progressive Care Unit Work Phone: Start: 01-16-2025 End: 01-16-2025 Anticoagulant drug monitoring [facility] Work Phone: [facility] [place] Comment on above: Paroxysmal atrial fi brillation (HCC) (Primary Dx) Start: 01-16-2025 End: 01-16-2025 ambulatory [facility] Facility:[facility] Start: 01-07-2025 End: 01-07-2025 ambulatory [facility] Facility:[facility] Start: 01-02-2025 End: 01-02-2025 Emergency department patient visit Dr. Christopher Bonilla MD Work Phone: -Emergency Department Work Phone: Start: 12-23-2024 End: 01-17-2025 Telephone encounter Mimi Encinas APRN.HOT SAW OPERATOR Work Phone: [facility] Comment on above: Results Start: 12-20-2024 End: 12-20-[address] Christopher Bonilla MD Work Phone: -Laboratory Start: 12-20-2024 End: 12-20-2024 Patient encounter procedure Mimi Encinas BULL CHAIN OPERATOR -Laboratory Work Phone: Start: 12-20-2024 End: 12-20-[address] Christopher Bonilla MD Work Phone: -Pulmonary Services/Neurology Start: 12-20-2024 End: 12-20-2024 Patient encounter procedure Hima PETE -Pulmonary Services/Neurology Work Phone: Start: 12-20-2024 End: 12-20-2024 ambulatory Mimi Suppan Facility:[facility] Start: 12-13-2024 End: 12-13-2024 ambulatory MIMI A SUPPAN Facility:[facility] Start: 12-13-2024 End: 12-13-2024 Patient encounter procedure Mimi Encinas TOPOLOGY PROFESSOR.HOT SAW OPERATOR Work Phone: [facility] Comment on above: Medicare annual well [...] End: 12-05-2024 Patient encounter procedure Hima PETE -[facility] Work Phone: Start: 12-05-2024 End: 12-05-[address] Christopher Bonilla MD Work Phone: [facility] Start: 11-28-2024 End: 11-28-2024 [facility]: [facility] [place] Comment on above: Paroxysmal atrial fi brillation (HCC) (Primary Dx) Start: 11-28-2024 End: 11-28-2024 ambulatory [facility] Facility:[facility] Start: 11-18-2024 End: 11-18-2024 Telephone encounter Christopher Bonilla MD Work Phone: [facility] [place] Comment on above: Patient Question Start: 10-31-2024 End: 10-31-2024 Anticoagulant drug monitoring [facility] Work Phone: [facility] [place] Comment on above: Paroxysmal atrial fi brillation (HCC) (Primary Dx) Start: 10-31-2024 End: 10-31-2024 ambulatory [facility] Facility:[facility] Start: 10-03-2024 End: 10-03-2024 Anticoagulant drug monitoring [facility] Work Phone: [facility] [place] Comment on above: Paroxysmal atrial fi brillation (HCC) (Primary Dx) Refill Request Start: 10-03-2024 End: 10-03-2024 ambulatory [facility] Facility:[facility] Start: 09-17-2024 End: 10-10-2024 Telephone encounter Christopher Bonilla MD Work Phone: [facility] Comment on above: Medication Problem Start: 09-02-2024 End: 09-02-2024 Anticoagulant drug monitoring [facility] Work Phone: [facility] [place] Comment on above: Paroxysmal atrial fi brillation (HCC) (Primary Dx) Start: 09-02-2024 End: 09-02-2024 ambulatory [facility] Facility:[facility] Start: 07-29-2024 End: 07-29-2024 Anticoagulant drug monitoring [facility] Work Phone: [facility] [place] Comment on above: Paroxysmal atrial fi brillation (HCC) (Primary Dx) Start: 07-29-2024 End: 07-29-2024 ambulatory CHRISTOPHER BONILLA Facility:[facility] Start: 07-22-2024 End: 07-22-2024 Refill Christopher Bonilla MD Work Phone: [facility] Comment on above: Refill Request Start: 07-16-2024 End: 07-17-2024 Follow-up encounter Christopher Bonilla MD Work Phone: [facility] Start: 07-16-2024 End: 07-16-2024 ambulatory Bony Farah Facility:[facility] Start: 07-12-2024 End: 07-12-2024 ambulatory CHRISTOPHER BONILLA Facility:[facility] Start: 06-28-2024 End: 06-28-2024 ambulatory CHRISTOPHER BONILLA Facility:[facility] Start: 06-28-2024 End: 06-28-2024 Anticoagulant drug monitoring [facility] Work Phone: [facility] Comment on above: Paroxysmal atrial fi brillation (HCC) (Primary Dx) Start: 06-20-2024 End: 06-20-2024 Telephone encounter Christopher Bonilla MD Work Phone: [facility] Comment on above: INR check Start: 06-17-2024 End: 06-17-2024 Telephone encounter Christopher Bonilla MD Work Phone: [facility] Comment on above: fax Gastro referral to Dr Flores Start: 06-03-2024 End: 06-03-2024 Telephone encounter Christopher Bonilla MD Work Phone: [facility] Comment on above: Results Start: 05-31-2024 End: 05-31-2024 ambulatory CHRISTOPHER BONILLA Facility:[facility] Start: 05-31-2024 End: 05-31-2024 Patient encounter procedure Christopher Bonilla MD Work Phone: [facility] Comment on above: Hypertension, essent ial [...] Thyroid nodule Start: 05-31-2024 End: 05-31-2024 ambulatory [facility] Facility:[facility] Start: 05-23-2024 End: 05-23-2024 Anticoagulant drug monitoring [facility] Work Phone: [facility] [place] Comment on above: Paroxysmal atrial fi brillation (HCC) (Primary Dx) Start: 05-23-2024 End: 05-23-2024 ambulatory [facility] Facility:[facility] Start: 05-15-2024 End: 05-15-2024 ambulatory Jolene Osuna RN Animal Control Specialist Management Comment on above: CDM (Routine outreac h) Start: 04-25-2024 End: 04-25-2024 Anticoagulant drug monitoring [facility] Work Phone: [facility] [place] Comment on above: Paroxysmal atrial fi brillation (HCC) (Primary Dx) Start: 04-25-2024 End: 04-25-2024 Telephone encounter [facility] [place] Comment on above: Orders (poc protime) Start: 04-25-2024 End: 04-25-2024 ambulatory [facility] Facility:[facility] Start: 04-24-2024 End: 04-24-2024 ambulatory Jolene Osuna RN Animal Control Specialist Management Comment on above: CDM (Routine outreac h) Start: 03-28-2024 End: 03-28-2024 Anticoagulant drug monitoring [facility] Work Phone: [facility] [place] Comment on above: Paroxysmal atrial fi brillation (HCC) (Primary Dx) Refill Request Start: 03-27-2024 End: 03-27-2024 ambulatory Jolene Osuna RN Animal Control Specialist Management Comment on above: CDM (Routine outreac h) Start: 03-12-2024 End: 03-12-2024 [facility] [place] Comment on above: Paroxysmal atrial fi brillation (HCC) (Primary Dx) Start: 03-05-2024 End: 03-05-2024 Anticoagulant drug monitoring [facility] Work Phone: [facility] [place] Comment on above: Paroxysmal atrial fi brillation (HCC) (Primary Dx) Start: 02-29-2024 End: 02-29-2024 ambulatory Jolene Osuna RN Animal Control Specialist Management Comment on above: CDM (Routine outreac h) Start: 02-27-2024 End: 02-27-2024 Telephone encounter Christopher Bonilla MD Work Phone: [facility] [place] Comment on above: Anticoagulation Start: 02-16-2024 End: 02-16-2024 ambulatory Jolene Osuna RN Animal Control Specialist Management Comment on above: Refill Request Start: 01-31-2024 End: 02-02-2024 ambulatory Jolene Osuna RN Animal Control Specialist Management Comment on above: CMD (Routine outreac h) Start: 01-18-2024 End: 01-18-2024 Anticoagulant drug monitoring [facility] Work Phone: [facility] [place] Comment on above: Paroxysmal atrial fi brillation (HCC) (Primary Dx) Start: 01-15-2024 Refill Christopher Bonilla MD Work Phone: [facility] [place] Comment on above: Refill Request Start: 01-04-2024 ambulatory Jolene Osuna RN Am bulatory Care Management Comment on above: CDM (Routine outreac h) Start: 12-21-2023 End: 12-21-2023 Anticoagulant drug monitoring [facility] Work Phone: [facility] [place] Comment on above: Paroxysmal atrial fi brillation (HCC) (Primary Dx) Start: 12-21-2023 Telephone encounter Mimi Encinas APRN.CNP Work Phone: [facility] [place] Start: 12-08-2023 ambulatory Teresa Mart RN Work Phone: Animal Control Specialist Management Start: 12-08-2023 Follow-up encounter Teresa keene RN Work Phone: Animal Control Specialist Management Comment on above: Community Monitoring Outreach (Follow up ) Start: 12-06-2023 ambulatory Teresa Mart RN Work Phone: Animal Control Specialist Management Start: 12-06-2023 Follow-up encounter Teresa keene RN Work Phone: Animal Control Specialist Management Comment on above: Community Monitoring Outreach (Follow Up) Start: 12-01-2023 Telephone encounter Mimi Encinas APRN.BULL CHAIN OPERATOR Work Phone: [facility] [place] Comment on above: Results Start: 11-30-2023 End: 11-30-2023 Anticoagulant drug monitoring [facility] Work Phone: [facility] [place] Comment on above: Paroxysmal atrial fi brillation (HCC) (Primary Dx) Start: 11-30-2023 Telephone encounter Christopher Bonilla MD Work Phone: [facility] [place] Comment on above: Bpm Solution Architect - O ther Start: 11-30-2023 End: 11-30-2023 Office outpatient visit 25 minutes Mimi Encinas APRN.BULL CHAIN OPERATOR Work Phone: [facility] [place] Comment on above: Anxiety with depress ion (Primary Dx); Paroxysmal atrial fibrillation (HCC); Hypertension, essential; Pulmonary hypertension (HCC); Other emphysema (HCC); Gastroesophageal reflux disease without esophagitis; Pulmonary emphysema, unspecified emphysema type (HCC); Prediabetes Start: 11-09-2023 ambulatory Jolene Osuna RN Am bul[facility] Care Management Comment on above: CDM (Routine outreac h) Start: 11-02-2023 End: 11-02-2023 Anticoagulant drug monitoring [facility] Work Phone: [facility] [place] Comment on above: Paroxysmal atrial fi brillation (HCC) (Primary Dx) Start: 10-23-2023 ambulatory Jolene Osuna RN Am bulatory Care Management Comment on above: CDM (Routine outreac h) Start: 10-19-2023 End: 10-19-2023 [facility] Work [facility]: [facility] [place] Comment on above: Paroxysmal atrial fi brillation (HCC) (Primary Dx) Start: 10-05-2023 End: 10-05-2023 [facility] Work [facility]: [facility] [place] Comment on above: Paroxysmal atrial fi brillation (HCC) (Primary Dx) Start: 09-26-2023 ambulatory Jolene Osuna RN Am bulatory Care Management Comment on above: CDM (Routine outreac h) Start: 2023 End: 2023 [facility] Work [facility]: [facility] [place] Comment on above: Paroxysmal atrial fi brillation (HCC) (Primary Dx) Start: 09-07-2023 End: 09-07-2023 [facility] Work [facility]: [facility] [place] Comment on above: Paroxysmal atrial fi brillation (HCC) (Primary Dx) Start: 08-29-2023 ambulatory Jolene Osuna RN Am bulatory Care Management Comment on above: CDM (Routine outreac h) Start: 08-22-2023 End: 08-22-2023 [facility] Work [facility]: [facility] [place] Comment on above: Paroxysmal atrial fi brillation (HCC) (Primary Dx) Start: 08-15-2023 End: 08-15-2023 [facility] Work [facility]: [facility] [place] Comment on above: Paroxysmal atrial fi brillation (HCC) (Primary Dx) Start: 08-03-2023 Refill Christopher Bonilla MD Work Phone: [facility] [place] Comment on above: Refill Request; fabienne tity change; Refill Request Start: 08-02-2023 ambulatory Jolene Osuna RN Am bulatory Care Management Comment on above: CDM (Routine outreac h) Start: 08-01-2023 End: 08-01-2023 Anticoagulant drug monitoring [facility] Work Phone: [facility] [place] Comment on above: Paroxysmal atrial fi brillation (HCC) (Primary Dx) Start: 07-25-2023 End: 07-25-2023 Office outpatient visit 15 minutes Mimi Encinas TOPOLOGY PROFESSOR.BULL CHAIN OPERATOR Work Phone: [facility] Comment on above: Chronic obstructive pulmonary disease with acute lower respiratory infection (HCC) (Primary Dx); Paroxysmal atrial fibrillation (HCC) Start: 07-25-2023 End: 07-25-2023 [facility] Work Phone: [facility] [place] Comment on above: Paroxysmal atrial fi brillation (HCC) (Primary Dx) Start: 07-25-2023 Telephone encounter Mimi Encinas TOPOLOGY PROFESSOR.BULL CHAIN OPERATOR Work Phone: [facility] Start: 07-10-2023 End: 07-10-2023 Office outpatient visit 15 minutes Mimi Encinas TOPOLOGY PROFESSOR.BULL CHAIN OPERATOR Work Phone: [facility] Comment on above: Pulmonary emphysema, unspecified emphysema type (HCC) (Primary Dx); Paroxysmal atrial fibrillation (HCC) Start: 07-10-2023 End: 07-10-2023 Refill Christopher Bonilla MD Work Phone: [facility] Comment on above: Refill Request Paroxysmal atrial fi brillation (HCC) (Primary Dx) Start: 06-15-2023 End: 06-15-[address] Christopher Bonilla Work Phone: [facility] Work Phone: Start: 06-15-2023 End: 06-15-[address] Christopher Bonilla Work Phone: [facility]-Laboratory, Specimen Work Phone: Start: 06-15-2023 End: 06-15-[address] Christopher Bonilla Work Phone: [facility] Work Phone: Start: 06-09-2023 End: 06-09-[address] Christopher Bonilla Work Phone: [facility] Work Phone: Start: 06-09-2023 End: 06-09-[address] Christopher Bonilla Work Phone: [facility]-Ultrasound, [facility] Work Phone: Start: 05-25-2023 ambulatory Jolene Osuna RN Am bulatory Care Management Comment on above: CDM (Routine outreac h) Start: 05-12-2023 End: 05-12-2023 [facility] Work [facility]: [facility] [place] Comment on above: Paroxysmal atrial fi brillation (HCC) (Primary Dx) Start: 05-11-2023 Telephone encounter Christopher Bonilla MD Work Phone: [facility] [place] Comment on above: Results Start: 05-10-2023 Telephone encounter Jannet wolf PA-C Work Phone: [facility] Comment on above: Appointment Reschedu led Start: 05-10-2023 End: 05-10-2023 Patient encounter procedure Christopher Bonilla MD Work Phone: [facility] [place] Comment on above: Paroxysmal atrial fi brillation [...] [facility] [place] Comment on above: Anticoagulation Start: 05-03-2023 Telephone encounter Christopher Bonilla MD Work Phone: [facility] [place] Comment on above: Anticoagulation Start: 05-01-2023 Telephone encounter Christopher Bonilla MD Work Phone: [facility] [place] Comment on above: Results (Critical IN R) Medication Problem Start: 04-11-2023 ambulatory Jolene Osuna RN [facility] Care Management Comment on above: CDM (Routine outreac h) Start: 03-30-2023 Telephone encounter Christopher Bonilla MD Work Phone: [facility] [place] Comment on above: Orders (protime) Start: 03-30-2023 End: 03-30-2023 Anticoagulant drug monitoring Anticoag [facility] Work Phone: [facility] [place] Comment on above: Paroxysmal atrial fi brillation (HCC) (Primary Dx) Start: 03-15-2023 ambulatory Jolene Osuna RN Am bul[facility] Care Management Comment on above: CDM (Routine outreac h) Start: 03-14-2023 End: 03-14-2023 Anticoagulant drug monitoring [facility] Work Phone: [facility] [...] [place] Comment on above: Refill Request Start: 02-21-2023 Telephone encounter Christopher Bonilla MD Work Phone: [facility] [place] Comment on above: Anticoagulation Start: 02-18-2023 Telephone encounter Christopher Bonilla MD Work Phone: [facility] [place] Comment on above: Anticoagulation Start: 02-15-2023 Telephone encounter Christopher Bonilla MD Work Phone: [facility] [place] Comment on above: Patient Question (IN R/Coumadin) Start: 02-14-2023 End: 02-14-[address] Christopher Bonilla Work Phone: [facility] Work Phone: Comment on above: CDM (Routine outreac h/) Start: 02-14-2023 Non-patient / Non-visit Dr. Derick Bonilla Work Phone: [facility] Start: 02-14-2023 End: 02-14-2023 Admission to same day surgery center Dr. Christopher Bonilla Work Phone: [facility]-End[facility] Work Phone: Start: 02-10-2023 Telephone encounter Christopher Bonilla MD Work Phone: [facility] [place] Comment on above: INR direction Start: 01-27-2023 ambulatory Christopher Bonilla MD Work Phone: [facility] [place] Comment on above: Shingles Start: 01-27-2023 End: 01-27-2023 [facility] Work Phone: [facility] [place] Comment on above: Paroxysmal atrial fi brillation (HCC) (Primary Dx) Start: 01-23-2023 Telephone encounter Christopher Bonilla MD Work Phone: [facility] [place] Comment on above: Results Start: 01-20-2023 End: 01-20-2023 [facility] Work Phone: [facility] [place] Comment on above: Paroxysmal atrial fi brillation (HCC) (Primary Dx) Start: 01-17-2023 Telephone encounter Christopher Bonilla MD Work Phone: [facility] Comment on above: Shingles Start: 01-16-2023 ambulatory Jolene Osuna RN Am bulatory Care Management Comment on above: CDM (Routine outreac h/) Start: 01-14-2023 Telephone encounter Shannon Chiu APRN.CNP Work Phone: [facility] Comment on above: Results Start: 01-13-2023 End: 01-13-2023 Patient encounter procedure Shanta Santi MANNHOT SAW OPERATOR Work Phone: [facility] Comment on above: Herpes zoster withou t complication (Primary Dx); Rash Start: 01-13-2023 Telephone encounter Christopher Bonilla MD Work Phone: [facility] Comment on above: blisters/rash possib le shingles Start: 01-10-2023 End: 01-10-[address] Christopher Bonilla Work Phone: [facility] Work Phone: Start: 01-04-2023 Refill Christopher Bonilla MD Work Phone: [facility] Comment on above: Refill Request Start: 12-26-2022 End: 12-26-[address] Christopher Bonilla Work Phone: [facility] Work Phone: Start: 12-22-2022 End: 12-22-[address] Christopher Bonilla Work Phone: [facility] Work Phone: Start: 12-09-2022 End: 12-09-[address] Christopher Bonilla Work Phone: [facility] Work Phone: Start: 12-09-2022 End: 12-09-[address] Christopher Bonilla Work Phone: [facility] Work Phone: Start: 12-08-2022 End: 12-08-2022 [facility] Comment on above: Paroxysmal atrial fi brillation (HCC) Start: 12-02-2022 End: 12-02-2022 [facility] Work Phone: [facility] [place] Comment on above: Paroxysmal atrial fi brillation (HCC) Start: 11-29-2022 End: 11-29-[address] Christopher Bonilla Work Phone: [facility] Work Phone: Start: 11-29-2022 End: 11-29-[address] Christopher Bonilla Work Phone: [facility] [place] Work Phone: Start: 11-24-2022 End: 11-24-2022 Anticoagulant drug monitoring [facility] Work Phone: Coumadin [facility] [place] Comment on above: Paroxysmal atrial fi brillation (HCC) Start: 11-08-2022 End: 11-08-2022 Patient encounter procedure Christopher Bonilla MD Work Phone: [facility] [place] Comment on above: Chronic anticoagulat ion (Primary [...] Start: 11-08-2022 End: 11-08-2022 Anticoagulant drug monitoring [facility] Work Phone: [facility] [place] Comment on above: Paroxysmal atrial fi brillation (HCC) Start: 10-20-2022 End: 10-20-2022 Subsequent hospital visit by physician Injection [facility] Work Phone: Nuclear Medicine Comment on above: Elevated alkaline ph osphatase level [R74.8] Start: 10-13-2022 End: 10-13-2022 [facility] [place] Comment on above: Paroxysmal atrial fi brillation (HCC) Start: 10-05-2022 Telephone encounter Myah Mehta PA-C Work Phone: [facility] [place] Comment on above: Orders Start: 09-29-2022 End: 09-29-2022 Anticoagulant drug monitoring [facility] Work Phone: [facility] [place] Comment on above: Paroxysmal atrial fi brillation (HCC) Start: 09-27-2022 Telephone encounter Christopher Bonilla MD Work Phone: [facility] [place] Comment on above: Patient Request Start: 09-22-2022 ambulatory Concha Rocha RN Ambulato ry Care Management Comment on above: CDM (Telephonic outr each) Start: 09-22-2022 Telephone encounter Christopher Bonilla MD Work Phone: [facility] [place] Comment on above: Results Medication Problem Start: 2022 Telephone encounter Myah Luigi Mehta PA-C Work Phone: [facility] [place] Comment on above: Results Start: 09-19-2022 End: 09-19-2022 Subsequent hospital visit by physician [facility] [place] Work Phone: Radiology Comment on above: Abdominal swelling, generalized [R19.07] Start: 09-19-2022 End: 09-19-2022 Patient encounter procedure Myah Mehta PA-C Work Phone: [facility] [place] Comment on above: Epigastric pain (Tre queta Dx); Abdominal swelling, generalized; Compression deformity of vertebra Start: 09-05-2022 End: 09-05-2022 Subsequent hospital visit by physician [facility] Work Phone: Radiology Comment on above: Renal mass [N28.89] Start: 09-01-2022 End: 09-01-2022 Patient encounter procedure Christopher Bonilla MD Work Phone: [facility] [place] Comment on above: Compression deformit y of vertebra (Primary Dx); Renal mass; Liver mass Start: 08-29-2022 ambulatory Concha Rocha RN Ambulato ry Care Management Comment on above: CDM (Telephonic outr each) Start: 08-23-2022 End: 08-23-2022 Anticoagulant drug monitoring [facility] Comment on above: Paroxysmal atrial fi brillation (HCC) Start: 08-19-2022 Telephone encounter Christopher [place] MD Work Phone: [facility] Comment on above: Results - Mri Start: 08-18-2022 End: 08-18-2022 Subsequent hospital visit by physician Mri [facility] (I-Stat/1.5t) Work Phone: Radiology Comment on above: Pathological fractur e, other site, initial encounter for fracture [M84.48XA] Start: 07-28-2022 End: 07-28-2022 Patient encounter procedure Christopher Bonilla MD Work Phone: [facility] Comment on above: Compression deformit y of vertebra (Primary Dx); Centrilobular emphysema (HCC); Pulmonary hypertension (HCC); Paroxysmal atrial fibrillation (HCC); Rheumatoid arthritis, unspecified (HCC); Chronic respiratory failure with hypoxia (HCC); Rheumatoid arthritis, involving unspecified site, unspecified whether rheumatoid factor present (HCC) Start: 07-21-2022 End: 07-21-2022 [facility] Comment on above: Paroxysmal atrial fi brillation (HCC) Start: 07-14-2022 End: 07-14-2022 Subsequent hospital visit by physician X[facility] Work Phone: Radiology Comment on above: Upper back pain [M54 .9] Start: 07-07-2022 End: 07-07-2022 [facility] Work Phone: [facility] Comment on above: Paroxysmal atrial fi brillation (HCC) Start: 07-04-2022 ambulatory Pcp (Historical) [facility] Start: 07-04-2022 Telephone encounter Christopher Bonilla MD Work Phone: [facility] Comment on above: Patient Question Start: 06-30-2022 End: 06-30-[address] Flaquito Mariee Work Phone: [facility] Work Phone: Start: 06-30-2022 End: 06-30-[address] Flaquito Mariee Work Phone: [facility]-Laboratory, Specimen Start: 06-29-2022 End: 06-29-2022 Patient encounter procedure Shanta Logan HOT SAW OPERATOR Work Phone: [facility] Comment on above: Upper back pain (Tre queta Dx) Start: 06-29-2022 End: 06-29-[address] Flaquito Mariee Work Phone: [facility] Start: 06-29-2022 Telephone encounter Christopher Bonilla MD Work Phone: [facility] Comment on above: Medication Problem Start: 06-27-2022 End: 06-27-[address] Flaquito Mariee Work Phone: [facility] Start: 06-21-2022 ambulatory Elisabeth lopez RN Work Phone: [employer] [facility] Comment on above: Community Monitoring Outreach (CDM) Start: 06-20-2022 End: 06-20-[address] Flaquito Mariee Work Phone: [facility] Start: 06-17-2022 Telephone encounter Christopher Bonilla MD Work Phone: Family [facility] Comment on above: Patient Update Start: 06-02-2022 Telephone encounter Christopher Bonilla MD Work Phone: Family [facility] Comment on above: Patient Update Start: 05-26-2022 End: 05-26-2022 Anticoagulant drug monitoring [facility] Work Phone: [facility] [place] Comment on above: Paroxysmal atrial fi brillation (HCC) Start: 05-23-2022 End: 05-23-[address] Flaquito Mariee Work Phone: [facility] Start: 05-20-2022 Telephone encounter Dalila Ha andrew ROUSE.HOT SAW OPERATOR Work Phone: [facility] [place] Comment on above: Results; Appointment Start: 05-19-2022 End: 05-19-2022 Anticoagulant drug monitoring Anticoag [facility] Work Phone: [facility] [place] Comment on above: Paroxysmal atrial fi brillation (HCC) Start: 05-18-2022 ambulatory Elisabeth lopez RN Work Phone: [employer] Start: 05-18-2022 Follow-up encounter Elisabeth Shannon RN Work Phone: [facility] Comment on above: Community Monitoring Outreach (CDM Follow Up) Start: 05-17-2022 End: 05-17-2022 Subsequent hospital visit by physician [facility] Work Phone: Radiology Comment on above: Rib pain [R07.81] Start: 05-17-2022 End: 05-17-2022 Patient encounter procedure Shannon Chiu APRN.HOT SAW OPERATOR Work Phone: [facility] Comment on above: Rib pain (Primary Dx ) Start: 05-17-2022 End: 05-17-2022 [facility] Work Phone: [facility] Comment on above: Thyroid nodule [E04. 1] Start: 05-06-2022 Non-patient / Non-visit Dr. Izzy Mariee Work Phone: [facility] Start: 05-05-2022 End: 05-05-[address] Christopher Bonilla Work Phone: [facility] Work Phone: Start: 05-05-2022 End: 05-05-[address] Christopher Bonilla Work Phone: [facility]-Pulmonary Services/Neurology Start: 04-26-2022 ambulatory Elisabeth lopez RN Work Phone: [facility] Start: 04-26-2022 Follow-up encounter Elisabeth Shannon RN Work Phone: [facility] Comment on above: Community Monitoring Outreach (CDM Follow Up) Start: 04-20-2022 Telephone encounter Christopher [place] MD Work Phone: [facility] Comment on above: Results Start: 04-19-2022 End: 04-19-2022 ambulatory Elisabeth Shannon RN Work Phone: [facility] Start: 04-19-2022 Follow-up encounter Elisabeth Shannon RN Work Phone: [facility] Comment on above: Community Monitoring Outreach (CDM Follow Up) Start: 04-19-2022 Telephone encounter Chirstopher Bonilla MD Work Phone: [facility] Comment on above: Anticoagulation Start: 04-19-2022 End: 04-19-2022 Patient encounter procedure Christopher Bonilla MD Work Phone: [facility] Comment on above: Hyperlipidemia, unsp ecified hyperlipidemia type (Primary Dx); Hypertension, essential; Moderate mitral regurgitation; Paroxysmal atrial fibrillation (HCC); Pulmonary hypertension (HCC); Lung nodule; Pleural effusion; Thyroid nodule; Marfan's syndrome; Chronic anticoagulation; Prediabetes; History of polymyalgia rheumatica; GERD without esophagitis; Renal infarct (HCC) Start: 04-05-2022 ambulatory Elisabeth lopez RN Work Phone: [facility] Comment on above: Community Monitoring Outreach (CDM Telephonic) Start: 04-04-2022 End: 04-04-[address] [facility] Start: 03-29-2022 End: 03-29-2022 [facility] Work Phone: [facility] [place] Comment on above: Paroxysmal atrial fi brillation (HCC) Start: 03-24-2022 ambulatory Elisabeth lopez RN Work Phone: [facility] Comment on above: Community Monitoring Outreach (CDM Telephonic) Start: 03-22-2022 ambulatory Elsiabeth lopez RN Work Phone: [facility] Comment on above: Community Monitoring Outreach (CDM Telephonic) Start: 03-15-2022 End: 03-15-2022 Patient encounter procedure Myah Mehta PA-C Work Phone: [facility] Comment on above: Paroxysmal atrial fi brillation (HCC) (Primary Dx); Pleural effusion, right; Renal insufficiency; Acute heart failure with preserved ejection fraction (HCC); Hypertension, essential; Chronic anticoagulation; pasturella bactermia Start: 03-15-2022 Telephone encounter Christopher [place] MD Work Phone: Coumadin [facility] Comment on above: Orders (protime) Start: 03-08-2022 Non-patient / Non-visit Dr. Derick Bonilla Work Phone: [facility] Start: 03-08-2022 End: 03-08-2022 ambulatory Elisabeth Shannon RN Work Phone: [facility] Comment on above: Community Monitoring Outreach (CDM Telephonic) Refill Request Start: 03-08-2022 Telephone encounter Tia Harding RN Work Phone: [facility] Comment on above: Home Care Start: 03-08-2022 End: 03-08-[address] Christopher Bonilla Work Phone: [facility]-Laboratory Start: 03-04-2022 End: 03-04-2022 Home visit Tia Harding RN Work Phone: [facility] Comment on above: SN HEIDI GARCIAS WO VISI T Start: 03-03-2022 Telephone encounter Christopher [place] MD Work Phone: [facility] Comment on above: Anticoagulation Start: 03-02-2022 End: 03-02-2022 Home visit Tia Harding RN Work Phone: [facility] Comment on above: SN ROUTINE Start: 02-25-2022 End: 02-25-2022 Home visit Manju Larson PT Work Phone: [facility] Comment on above: CARE COORDINATION Start: 02-24-2022 End: 02-24-2022 Home visit Tia Harding RN Work Phone: [facility] Comment on above: SN ROUTINE Start: 02-23-2022 Telephone encounter Christopher [place] MD Work Phone: [facility] Comment on above: Orders Start: 02-22-2022 ambulatory Elisabeth lopez RN Work Phone: [facility] Comment on above: Community Monitoring Outreach (CDM Telephonic) Start: 02-22-2022 Telephone encounter Gemma Stroud on INSTITUTIONAL ASSET MANAGER Work Phone: [facility] Comment on above: Home Care (Missed PT visit) Start: 02-22-2022 End: 02-22-[address] Christopher [facility]illa Work Phone[facility] Start: 02-22-2022 End: 02-22-2022 Home visit Gemma Carter INSTITUTIONAL ASSET MANAGER Work Phone: [facility] Comment on above: INSTITUTIONAL ASSET MANAGER UNMADE VISIT Start: 02-21-2022 End: 02-21-2022 Home visit Gemma Machado INSTITUTIONAL ASSET MANAGER Work Phone: [facility] Comment on above: INSTITUTIONAL ASSET MANAGER UNMADE VISIT Start: 02-18-2022 End: 02-18-2022 Home visit Manju Larson PT Work Phone: [facility] Comment on above: PT ROUTINE Start: 02-17-2022 Telephone encounter Christopher Bonilla MD Work Phone: [facility] Comment on above: Anticoagulation Start: 02-15-2022 End: 02-15-2022 Home visit Gemmaalida Machado INSTITUTIONAL ASSET MANAGER Work Phone: [facility] Comment on above: INSTITUTIONAL ASSET MANAGER ROUTINE SN ROUTINE Start: 02-15-2022 Telephone encounter Erik Malagon RN Work Phone: [facility] Comment on above: Home Care (Need for further pt/inr orders) Start: 02-14-2022 Telephone encounter Christopher Bonilla MD Work Phone: [facility] Comment on above: Results Start: 02-14-2022 End: 02-14-[address] Christopher Bonilla Work Phone: [facility] Start: 02-11-2022 End: 02-11-2022 Subsequent hospital visit by physician [facility] Work Phone: Radiology Comment on above: Parapneumonic effusi on [J18.9, J91.8] Start: 02-11-2022 End: 02-11-2022 Home visit Manju Larson PT Work Phone: [facility] Comment on above: PT EVAL Start: 02-10-2022 Telephone encounter Maureen aparicio RN Work Phone: [facility] Comment on above: Home Care (SOC/sever e med interactions) Erroneous encounter- disregard Start: 02-09-2022 End: 02-09-[address] Christopher Bonilla Work Phone: [facility]-Laboratory, Specimen Start: 02-09-2022 ambulatory Elisabeth lopez RN Work Phone: [facility] [employer] [facility] Comment on above: Community Monitoring Outreach (CDM Telephonic ) Start: 02-09-2022 Telephone encounter Christopher Bonilla MD Work Phone: [facility] Comment on above: Anticoagulation Start: 02-09-2022 End: 02-09-2022 Home visit Maureen Bowser RN Work Phone: [facility] Comment on above: SN SOC Start: 02-08-2022 Patient Outreach Colleen larry RN Work Phone: [facility] Comment on above: Transition Of Care ( TCM initial outreach d/c 02/06 ) Coumadin Dosage Patient Question Start: 02-03-2022 Telephone encounter Cleo Chaudhari [facility] Comment on above: Home Care (Confirmat ion Call) Start: 01-31-2022 Non-patient / Non-visit Dr. Derick Bonilla Work Phone: [facility] Start: 01-31-2022 Non-patient / Non-visit Dr. Derick Bonilla Work Phone: [facility] Start: 01-30-2022 Non-patient / Non-visit Dr. Derick Bonilla Work Phone: [facility] Start: 01-29-2022 Non-patient / Non-visit Dr. Derick Bonilla Work Phone: [facility] Start: 01-28-2022 Non-patient / Non-visit Dr. Derick Bonilla Work Phone: [facility] Start: 01-28-2022 Non-patient / Non-visit Dr. Derick Bonilla Work Phone: [facility] Start: 01-28-2022 Non-patient / Non-visit Dr. Derick Bonilla Work Phone: [facility] Start: 01-27-2022 Non-patient / Non-visit Dr. Derick Bonilla Work Phone: [facility] Start: 01-27-2022 Non-patient / Non-visit Dr. Derick Bonilla Work Phone: [facility] Start: 01-26-2022 Non-patient / Non-visit Dr. Derick Bonilla Work Phone: [facility] Start: 01-26-2022 End: 01-31-2022 Evaluation and management of inpatient Dr. Christopher Bonilla Work Phone: [facility] Start: 01-14-2022 End: 01-14-2022 Office outpatient visit 25 minutes [place] Jensen APRN.CNP Work Phone: [facility] Comment on above: Hypertension, essent ial (Primary Dx); Renal insufficiency; Prediabetes; Chronic anticoagulation; Gastroesophageal reflux disease, unspecified whether esophagitis present; Hyperlipidemia, unspecified hyperlipidemia type; Paroxysmal atrial fibrillation (HCC); Acute combined systolic and diastolic congestive heart failure (HCC) Start: 01-14-2022 End: 01-14-2022 Anticoagulant drug monitoring [facility] Work Phone: Cou[facility]in [facility] Comment on above: Paroxysmal atrial fi brillation (HCC) Start: 01-05-2022 ambulatory Elisabeth lopez RN Work Phone: [facility] Start: 01-05-2022 Follow-up encounter Elisabeth Shannon RN Work Phone: [facility] Comment on above: Community Monitoring Outreach (Telephonic Follow Up) Start: 12-20-2021 Refill Christopher [place] MD Work Phone: [facility] Comment on above: Refill Request Community Monitoring Outreach (Telephonic Follow Up) Start: 12-16-2021 End: 12-16-2021 [facility] Work Phone: [facility] Comment on above: Paroxysmal atrial fi brillation (HCC) Start: 12-01-2021 End: 12-01-[address] Christopher [place] Work Phone: [facility] Start: 11-18-2021 End: 11-18-2021 Anticoagulant drug monitoring [facility] Work Phone: [facility] Comment on above: Paroxysmal atrial fi brillation (HCC) Start: 11-09-2021 ambulatory Elisabeth lopez RN Work Phone: [facility] [place] Start: 11-09-2021 Follow-up encounter Elisabeth Shannon RN Work Phone: [facility] [employer] [facility] Comment on above: Community Monitoring Outreach (Telephonic Follow Up) Start: 11-08-2021 End: 11-08-[address] Christopher Bonilla Work Phone: [facility] Start: 11-08-2021 ambulatory Elisabeth lopez RN Work Phone: [facility] [facility] Start: 11-08-2021 Follow-up encounter Elisabeth Shannon RN Work Phone: Animal [employer] Specialist Management Comment on above: Community Monitoring Outreach (Telephonic Follow Up) Start: 11-02-2021 End: 11-02-2021 Anticoagulant drug monitoring [facility] Work Phone: [facility] [place] Comment on above: Paroxysmal atrial fi brillation (HCC) Start: 10-26-2021 Non-patient / Non-visit Dr. Derick Bonilla Work Phone: [facility] Start: 10-26-2021 End: 10-26-[address] Christopher Bonilla Work Phone: [facility]-Pulmonary Services/Neurology Start: 10-25-2021 ambulatory Elisabeth lopez RN Work Phone: [facility] Start: 10-25-2021 Follow-up encounter Elisabeth Shannon RN Work Phone: Animal [employer] Specialist Management Comment on above: Community Monitoring Outreach (Telephonic Follow Up) Start: 10-23-2021 Non-patient / Non-visit Dr. Derick Bonilla Work Phone: [facility] Start: 10-22-2021 End: 10-22-[address] Christopher Bonilla Work Phone: [facility]-Pulmonary Services/Neurology Start: 10-18-2021 End: 10-18-2021 Anticoagulant drug monitoring [facility] Work Phone: [facility] Comment on above: Paroxysmal atrial fi brillation (HCC) Start: 10-11-2021 ambulatory Elisabeth lopez RN Work Phone: [employer] Start: 10-11-2021 Follow-up encounter Elisabeth Shannon RN Work Phone: Animal [employer] Specialist Management Comment on above: [facility] Outreach (Telephonic Follow Up) Refill Request Start: 10-11-2021 End: 10-11-2021 Anticoagulant drug monitoring [facility] Work Phone: [facility] Comment on above: Paroxysmal atrial fi brillation (HCC) Start: 10-06-2021 Telephone encounter Christopher Bonilla MD Work Phone: [facility] [place] Comment on above: Results Start: 10-05-2021 Telephone encounter Christopher Bonilla MD Work Phone: Family [facility] Comment on above: Results Start: 10-04-2021 End: 10-04-2021 Subsequent hospital visit by physician Diego [facility] Anisha Work Phone: Radiology Comment on above: Pleural effusion, ri ght [J90] Start: 10-04-2021 End: 10-04-2021 Patient encounter procedure Christopher Bonilla MD Work Phone: Family [facility] Comment on above: Thyroid nodule (Prim karen Dx); History of colonic polyps; Paroxysmal atrial fibrillation (HCC); Hypertension, essential; Pulmonary hypertension (HCC); Hyperlipidemia, unspecified hyperlipidemia type; Pleural effusion, right; Prediabetes; Medication monitoring encounter Start: 10-04-2021 End: 10-04-2021 Anticoagulant drug monitoring [facility] Work Phone: [facility] Comment on above: Paroxysmal atrial fi brillation (HCC) Start: 09-27-2021 ambulatory Elisabeth lopez RN [facility] Start: 09-27-2021 Follow-up encounter Elisabeth Shannon RN [employer] Comment on above: Community Monitoring Outreach (Telephonic Follow Up) Start: 09-20-2021 Telephone encounter Christopher Bonilla MD Work Phone: [facility] Comment on above: Anticoag order Start: 09-16-2021 Telephone encounter Christopher Bonilla MD Work Phone: [facility] Comment on above: Anticoagulation Patient Update Start: 09-16-2021 End: 09-16-[address] Christopher Boinlla Work Phone: [facility]Cat [facility], [facility] Start: 09-09-2021 End: 09-09-[address] Christopher Bonilla Work Phone: [facility]-Laboratory Start: 09-09-2021 End: 09-09-2021 Anticoagulant drug monitoring Anticoag [facility] Work Phone: [facility] Comment on above: Paroxysmal atrial fi brillation (HCC) Start: 08-31-2021 ambulatory Elisabeth lopez RN [facility] Start: 08-31-2021 Follow-up encounter Elisabeth Shannon RN [employer] Comment on above: Community Monitoring Outreach (Telephonic Follow Up) Start: 08-25-2021 End: 08-25-[address] Christopher Bonilla Work Phone: [facility]-Laboratory, Specimen Start: 08-25-2021 End: 08-25-2021 Subsequent hospital visit by physician Xr [facility] Work Phone: Radiology Comment on above: SOB (shortness of br eath) [R06.02] Start: 08-25-2021 Telephone encounter Christopher Bonilla MD Work Phone: [facility] Comment on above: Results Anticoagulation Start: 08-16-2021 End: 08-16-[address] Christopher Bonilla Work Phone: [facility] Start: 08-06-2021 End: 08-06-[address] Christopher Bonilla Work Phone: [facility]-Pulmonary Medicine [facility] Start: 08-05-2021 Telephone encounter Christopher Bonilla MD Work Phone: [facility] Comment on above: INR draw Start: 08-05-2021 End: 09-02-[address] Christopher Bonilla Work Phone: [facility] Start: 08-05-[address] Mike Bonilla Work Phone: [facility] Start: 08-04-2021 End: 08-04-[address] Christopher Bonilla Work Phone: [facility]Laboratory, Specimen Start: 08-02-2021 Telephone encounter Christopher Bonilla MD Work Phone: [facility] Comment on above: Anticoagulation Start: 07-28-2021 End: 07-28-2021 Subsequent hospital visit by physician [facility] Work Phone: Radiology Comment on above: Recurrent right pleu ral effusion [J90] Start: 07-28-2021 End: 07-28-[address] Christopher Bonilla Work Phone: [facility]Laboratory, Specimen Start: 07-22-2021 Non-patient / Non-visit Dr. Derick Bonilla Work Phone: [facility] Start: 07-21-2021 Non-patient / Non-visit Dr. Derick Bonilla Work Phone: [facility] Start: 07-20-2021 Non-patient / Non-visit Dr. Derick Bonilla Work Phone: [facility] Start: 07-19-2021 Non-patient / Non-visit Dr. Derick Bonilla Work Phone: [facility] Start: 07-18-2021 Non-patient / Non-visit Dr. Derick Bonilla Work Phone: [facility] Start: 07-17-2021 Non-patient / Non-visit Dr. Derick Bonilla Work Phone: [facility] Start: 07-17-2021 Non-patient / Non-visit Dr. Derick Bonilla Work Phone: [facility] Start: 07-16-2021 Non-patient / Non-visit Dr. Derick Bonilla Work Phone: [facility] Start: 07-15-2021 Non-patient / Non-visit Dr. Derick Bonilla Work Phone: [facility] Start: 07-15-2021 Non-patient / Non-visit Dr. Derick Bonilla Work Phone: [facility] Start: 07-14-2021 Non-patient / Non-visit Dr. Derick Bonilla Work Phone: [facility] Start: 07-14-2021 End: 07-22-2021 Evaluation and management of inpatient Dr. Christopher Bonilla Work Phone: [facility]-Progressive Care Unit Start: 07-09-2021 Non-patient / Non-visit Dr. Derick Bonilla Work Phone: [facility] Start: 07-09-2021 Non-patient / Non-visit Dr. Derick Bonilla Work Phone: [facility] Start: 07-08-2021 Non-patient / Non-visit Dr. Derick Bonilla Work Phone: [facility] Start: 07-08-2021 End: 07-09-2021 Evaluation and management of inpatient Dr. Christopher Bonilla Work Phone: [facility] Start: 07-07-2021 Non-patient / Non-visit Dr. Derick Bonilla Work Phone: [facility] Start: 07-02-2021 End: 07-02-2021 Subsequent hospital visit by physician [facility] Work Phone: Radiology Comment on above: Pleural effusion, ri ght [J90] Start: 06-23-2021 Non-patient / Non-visit Dr. Derick Bonilla Work Phone: [facility] Start: 06-22-2021 Non-patient / Non-visit Dr. Derick Bonilla Work Phone: [facility] Start: 06-21-2021 Non-patient / Non-visit Dr. Derick Bonilla Work Phone: [facility] Start: 06-20-2021 Non-patient / Non-visit Dr. Derick Bonilla Work Phone: [facility] Start: 06-19-2021 Non-patient / Non-visit Dr. Derick Bonilla Work Phone: [facility] Start: 06-18-2021 End: 06-23-2021 Evaluation and management of inpatient Dr. Christopher Bonilla Work Phone: [facility] Start: 06-18-2021 End: 06-18-2021 Subsequent hospital visit by physician [facility] Work Phone: Radiology Comment on above: Dyspnea, unspecified type [R06.00] Start: 05-14-2021 End: 05-14-[address] Christopher Bonilla Work Phone: [facility] Start: 05-04-2020 End: 05-04-2020 Subsequent hospital visit by physician Xr [facility] Work Phone: Radiology Comment on above: Cough [R05] Start: 03-20-2018 Ambulatory [place] Nicole ity:[facility] Start: 07-20-2017 End: 07-20-2017 Ambulatory [facility] Facility:[facility] Start: 06-30-2017 [facility] Facility :[facility] Procedures Date Procedure Procedure Detail Performing Clinician [...] 12-13-2024 Adult depression screening assessment Mimi Encinas APRN.CNP Work Phone: Start: 11-30-2023 Adult depression screening [...] Start: 10-20-2022 Bone &/joint imaging whole body Myah WANG-C Work Phone: Start: 09-19-2022 Radiologic exam abdomen 1 view Myah WANG-Kranthi Work Phone: Start: 09-19-2022 H/O: hysterectomy History of hysterectomy ALIDA Mehta PA-C Work Phone: Start: 09-19-2022 End: 11-08-2022 H/O: surgery History of surgical procedure NA Mehta PA-C Work Phone: Start: 09-05-2022 Us abdominal real time w/image documentation Christopher Bonilla MD Work Phone: Start: 08-18-2022 Mri spinal canal thoracic w/o contrast matrl Myah WANG-Kranthi Work Phone: Start: 07-14-2022 Radex spine thoracic 3 views Christopher duval MD Work Phone: Start: 05-17-2022 Radex ribs uni w/posteroant ch minimum 3 views Shannon Chiu TOPOLOGY PROFESSOR.HOT SAW OPERATOR Work Phone: Start: 05-17-2022 Us soft tissue [...] 01-14-2022 Adult depression screening assessment Dalila Jensen TOPOLOGY PROFESSOR.HOT SAW OPERATOR Work Phone: Start: 10-04-2021 Radiologic exam chest [...] Radiologic exam chest 2 views Dalila morales APRN.HOT SAW OPERATOR Work Phone: Start: 07-16-2021 Anaerobic microbial culture [...] Radiologic exam chest 2 views Shannon Chiu APRN.HOT SAW OPERATOR Work Phone: Start: 10-16-2014 Colonoscopy Christopher Bonilla [...] 12-21-2027 Diabetes Screening Diabetes Screening [facility] Start: 05-31-2027 Diabetes Screening Diabetes Screening [facility] Start: 11-29-2026 Diabetes Screening Diabetes Screening [facility] Start: 05-10-2026 Diabetes Screening Diabetes Screening [facility] Start: 04-02-2026 LIPID SCREEN LIPID SCREEN [facility] Start: 02-05-2026 Annual PCP Team Chronic Disease Visit Annual PCP Team Chronic Disease Visit [facility] Start: 12-13-2025 Annual PCP Team Chronic Disease Visit Annual PCP Team Chronic Disease Visit [facility] Start: 12-13-2025 Anxiety Screening Anxiety Screening [facility] Start: 12-13-2025 Depression Screening Depression Screening [facility] Start: 11-08-2025 DIABETES SCREEN DIABETES SCREEN [facility] Start: 11-08-2025 Diabetes Screening Diabetes Screening [facility] Start: 09-19-2025 DIABETES SCREEN DIABETES SCREEN [facility] Start: 07-20-2025 Urine microalbumin profile [facility] Start: 06-17-2025 End: 06-17-2025 Patient encounter procedure 06/17/2025 2:40 PM EST Office Visit [facility] [address] [place], [place] [id number] Christopher Bonilla MD [address] [place], [place] [id number] 6 month exam [facility] [place] Comment on above: 6 month exam Start: 06-04-2025 Advance Directive Discussion Advance Directive Discussion [facility] Comment on above: Postponed from 06/05/2024 (Declined at t his time) Start: 05-31-2025 Annual PCP Team Chronic Disease Visit Annual PCP Team Chronic Disease Visit [facility] Start: 05-31-2025 BP Controlled (<130/80) BP Controlled (<130/80) [facility] Start: 05-31-2025 Covid-19 Vaccine ( season) Covid-19 Vaccine () [facility] Comment on above: Postponed from 02/04/2024 (Declined at t his time) Start: 05-31-2025 Creatinine measurement Serum Creatinine [facility] Start: 05-31-2025 RSV Vaccine (1 - 1-dose 75+ series) RSV Vaccine (1 - 1-dose 75+ series) [facility] Comment on above: Postponed from 2020 (Declined at t his time) Start: 05-05-2025 DIABETES SCREEN DIABETES SCREEN [facility] Start: 04-19-2025 DIABETES SCREEN DIABETES SCREEN [facility] Start: 03-04-2025 End: 03-04-2025 Evaluation of diagnostic study results [facility] Start: 02-28-2025 End: 02-28-2025 Evaluation of diagnostic study results [facility] Start: 02-21-2025 End: 02-21-2025 Anticoagulant drug monitoring 02/21/2025 2:30 PM EDT Anticoagulation Visit [facility] [address] [place] [address] Wstr, Anticoag [facility] [address] [place] [address] inr [facility] Comment on above: inr Start: 02-12-2025 End: 02-12-2025 Patient encounter procedure 02/12/2025 2:00 PM EDT Office Visit [facility] [address] [place] [address] Dalila Jensen, TOPOLOGY PROFESSOR.HOT SAW OPERATOR [address] [place] [address] 1 week recheck Family [facility] [place] Comment on above: 1 week recheck Start: 02-11-2025 DIABETES SCREEN DIABETES SCREEN [facility] Start: 02-05-2025 End: 02-05-2025 Patient encounter procedure 02/05/2025 2:00 PM EDT Office Visit Family [facility] [address] [place] [address] Dalila Jensen, TOPOLOGY PROFESSOR.HOT SAW OPERATOR [address] [place] [address] [facility] discharge [facility] Comment on above: [facility] discharge Start: 02-03-2025 DIABETES SCREEN DIABETES SCREEN [facility] Start: 02-03-2025 Influenza vaccination [facility] Start: 01-29-2025 End: 01-29-2025 Patient encounter procedure 01/29/2025 3:00 PM EDT Office Visit [facility] [place] [address] [place] [address] Dalila Jensen APRN.HOT SAW OPERATOR [address] [place] [address] [facility] discharge 01/25-CHF -TCM [facility] [place] Comment on above: [facility] discharge 01/25-CHF -TCM Start: 01-25-2025 Patient discharge [facility] Start: 01-24-2025 Referral to service [facility] Start: 01-23-2025 Referral for physical therapy [facility] Start: 01-23-2025 Referral to occupational therapist [facility] Start: 01-23-2025 Referral to service [facility] Start: 01-22-2025 Following clinical pathway protocol [facility] Start: 01-22-2025 Ambulation without limitation [facility] Start: 01-22-2025 Assessment of risk of venous thromboembolism [facility] Start: 01-22-2025 Inhalation therapy procedure [facility] Start: 01-22-2025 Insertion of catheter into peripheral vein [facility] Start: 01-22-2025 Measuring intake and output [facility] Start: 01-22-2025 Oxygen therapy [facility] Start: 01-22-2025 Providing care according to standard [facility] Start: 01-22-2025 Referral to service [facility] Start: 01-22-2025 [facility] Start: 01-22-2025 Verification routine [facility] Start: 01-22-2025 Admission procedure [facility] Start: 01-22-2025 End: 01-22-2025 Hospital admission, emergency, from emergency room, medical nature [facility] Start: 01-22-2025 Patient referral to dietitian [facility] Start: 01-02-2025 [facility] Start: 01-02-2025 End: 01-02-2025 Anticoagulant drug monitoring 01/02/2025 2:00 PM EDT [facility] [address] [facility] [place] [address] Wstr, Anticoag [facility] [address] [facility] [place] [address] inr [facility] [place] Comment on above: inr Start: 12-13-2024 End: 03-14-2025 CBC W Auto Differential panel - Blood COMPLETE BLOOD COUNT AND DIFFERENTIAL Lab Routine Fatigue, unspecified type Rheumatoid arthritis, involving unspecified site, unspecified whether rheumatoid factor present (HCC) Chronic anticoagulation Expected: 12/13/2024, Expires: 03/14/2025 [facility] Work Phone: Comment on above: Expected: 12/13/2024, Expires: Start: 12-13-2024 End: 03-14-2025 Cobalamin (Vitamin B12) [Mass/volume] in Serum or Plasma VITAMIN B12 Lab Routine Fatigue, unspecified type Expected: 12/13/2024, Expires: 03/14/2025 [facility] Comment on above: Expected: 12/13/2024, Expires: Start: 12-13-2024 End: 03-14-2025 Comprehensive metabolic 2000 panel - Serum or Plasma COMPREHENSIVE METABOLIC PANEL Lab Routine Fatigue, unspecified type Stage 3 chronic kidney disease, unspecified whether stage 3a or 3b CKD (HCC) Chronic anticoagulation Expected: 12/13/2024, Expires: 03/14/2025 [facility] Comment on above: Expected: 12/13/2024, Expires: Start: 12-13-2024 End: 03-14-2025 Ferritin [Mass/volume] in Serum or Plasma FERRITIN Lab Routine Fatigue, unspecified type Expected: 12/13/2024, Expires: 03/14/2025 [facility] Comment on above: Expected: 12/13/2024, Expires: Start: 12-13-2024 End: 03-14-2025 Hemoglobin A1c in Blood HEMOGLOBIN A1C Lab Routine Fatigue, unspecified type Prediabetes Expected: 12/13/2024, Expires: 03/14/2025 [facility] Comment on above: Expected: 12/13/2024, Expires: Start: 12-13-2024 End: 03-14-2025 Iron and Iron binding capacity panel - Serum or Plasma IRON AND TIBC Lab Routine Fatigue, unspecified type Expected: 12/13/2024, Expires: 03/14/2025 [facility] Comment on above: Expected: 12/13/2024, Expires: Start: 12-13-2024 End: 03-14-2025 Magnesium [Mass/volume] in Serum or Plasma MAGNESIUM Lab Routine Fatigue, unspecified type Stage 3 chronic kidney disease, unspecified whether stage 3a or 3b CKD (HCC) Expected: 12/13/2024, Expires: 03/14/2025 [facility] Comment on above: Expected: 12/13/2024, Expires: Start: 12-13-2024 End: 03-14-2025 Thyrotropin [Units/volume] in Serum or Plasma THYROID STIMULATING HORMONE Lab Routine Fatigue, unspecified type Thyroid nodule Rheumatoid arthritis, involving unspecified site, unspecified whether rheumatoid factor present (HCC) Expected: 12/13/2024, Expires: 03/14/2025 [facility] Comment on above: Expected: 12/13/2024, Expires: Start: 12-09-2024 End: 12-09-2024 Patient encounter procedure 12/09/2024 5:20 PM EDT Office Visit [facility] [address] [place] [address] Christopher Bonilla MD [address] [place] [address] physical [facility] [place] Comment on above: physical Start: 12-02-2024 Influenza vaccination Influenza Vaccine (#1) [facility] Lauren mace Comment on above: Postponed from 02/04/2024 (Declined at t his time) Start: 11-29-2024 Anxiety Screening Anxiety Screening [facility] Start: 11-29-2024 BP Controlled (<130/80) BP Controlled (<130/80) [facility] in Start: 11-29-2024 Covid-19 Vaccine ( season) Covid-19 Vaccine (2022- season) [facility] Comment on above: Postponed from 02/03/2023 (Declined at t his time) Start: 11-29-2024 Creatinine measurement Serum Creatinine [facility] Start: 11-29-2024 Depression Screening Depression Screening [facility] Start: 11-29-2024 Shingrix Vaccine (1 of 2) Shingrix Vaccine (1 of 2) [facility] Comment on above: Postponed from 09/22/1995 (Insurance Cov erage) Start: 11-28-2024 End: 11-28-2024 Anticoagulant drug monitoring 11/28/2024 2:00 PM EDT [facility]tico[facility] [address] [facility] [place] [address] Wstr, Anticoag [facility] [address] [facility] [place] [address] inr [facility] [place] Comment on above: inr Start: 10-31-2024 End: 10-31-2024 Anticoagulant drug monitoring 10/31/2024 2:00 PM EDT Antico[facility] Visit [facility] [address] [facility] [place] [address] Wstr, Anticoag [facility] [address] [facility] [address] inr [facility] [place] Comment on above: inr Start: 10-18-2024 DIABETES SCREEN DIABETES SCREEN [facility] Start: 10-04-2024 DIABETES SCREEN DIABETES SCREEN [facility] Start: 09-30-2024 End: 09-30-2024 Anticoagulant drug monitoring 09/30/2024 2:00 PM EDT Antico[facility] [address] [facility] [place] [address] Wstr, Anticoag [facility] [address] [facility] [place] [address] inr [facility] [place] Comment on above: inr Start: 08-26-2024 End: 08-26-2024 Anticoagulant drug monitoring 08/26/2024 2:00 PM EDT Anticoagulation Visit [facility] [place] [address] [facility] [place] [address] Wstr, Anticoag [facility] [address] [facility] [place] [id number] inr [facility] [place] Comment on above: inr Start: 08-25-2024 DIABETES SCREEN DIABETES SCREEN [facility] Start: 07-25-2024 End: 07-25-2024 Anticoagulant drug monitoring 07/25/2024 2:00 PM EST Anticoagulation Visit [facility] [place] [address] [facility] [place] [address] [facility] [address] [facility] [place] [address] inr [facility] [place] Comment on above: inr Start: 07-25-2024 BP Controlled (<130/80) BP Controlled (<130/80) [facility] in Start: 07-15-2024 End: 10-14-2024 Hepatic function 2000 panel - Serum or Plasma HEPATIC FUNCTION PNL Lab Routine Hyperlipidemia, unspecified hyperlipidemia type Expected: 07/15/2024, Expires: 10/14/2024 [facility] Work Phone: Comment on above: Expected: 07/15/2024, Expires: Start: 07-15-2024 End: 10-14-2024 Lipid 1996 panel - Serum or Plasma LIPID PANEL BASIC Lab Routine Hyperlipidemia, unspecified hyperlipidemia type Expected: 07/15/2024, Expires: 10/14/2024 [facility] Comment on above: Expected: 07/15/2024, Expires: Start: 07-10-2024 BP Controlled (<130/80) BP Controlled (<130/80) [facility] in Start: 07-09-2024 End: 07-09-2024 Patient encounter procedure 07/09/2024 1:25 PM EST Office Visit Gastroenterology [facility] [address] [facility] [place] [id number] Deana Gonzales PA-C [address] [facility] [place] [address] Esophagus erosion Gastroenterology [facility] Comment on above: Esophagus erosion Start: 06-20-2024 End: 06-20-2024 Anticoagulant drug monitoring 06/20/2024 1:45 PM EST Anticoagulation [facility] [place] [address] [facility] [place] [address] Wstr, Anticoag [facility] [place] [address] [facility] [place] [address] inr [facility] [place] Comment on above: inr Start: 06-05-2024 Advance Directive Discussion Advance Directive Discussion [facility] Start: 06-05-2024 Medicare Advantage Annual Wellness Visit Medicare Advantage Annual Wellness Visit [facility] Start: 05-31-2024 End: 08-30-2024 CBC W Auto Differential panel - Blood [facility] Work Phone: Comment on above: Expected: 05/31/2024, Expires: Start: 05-31-2024 End: 08-30-2024 Comprehensive metabolic 2000 panel - Serum or Plasma [facility] Comment on above: Expected: 05/31/2024, Expires: Start: 05-31-2024 End: 08-30-2024 Hemoglobin A1c in Blood [facility] Comment on above: Expected: 05/31/2024, Expires: Start: 05-31-2024 End: 08-30-2024 LIPID PANEL, NONFASTING [facility] Comment on above: Expected: 05/31/2024, Expires: Start: 05-31-2024 End: 05-31-2024 Patient encounter procedure 05/31/2024 2:00 PM EST Office Visit Family Medicine [place] [address] [facility] [place] [address] Christopher Bonilla MD [address] [facility] [place] [address] 6 month f/u [facility] [place] Comment on above: 6 month f/u Start: 05-23-2024 End: 05-23-2024 Anticoagulant drug monitoring 05/23/2024 2:00 PM EST Anticoagulation [facility] [place] [address] [place] [address] [facility]str[facility] [place] [address] [place] [address] inr [facility] [place] Comment on above: inr Start: 05-10-2024 Annual PCP Team Chronic Disease Visit Annual PCP Team Chronic Disease Visit [facility] Start: 05-10-2024 BP Controlled (<130/80) BP Controlled (<130/80) [facility] inic Start: 05-10-2024 Creatinine measurement Serum Creatinine [facility] Start: 05-10-2024 RSV Vaccine (1 - 1-dose 60+ series) RSV Vaccine (1 - 1-dose 60+ series) [facility] Comment on above: Postponed from 2005 (Declined at t his time) Start: 05-10-2024 RSV Vaccine (1 - 1-dose 75+ series) RSV Vaccine (1 - 1-dose 75+ series) [facility] Comment on above: Postponed from 2020 (Declined at t his time) Start: 05-10-2024 Serum Creatinine Serum Creatinine [facility] Start: 04-25-2024 End: 04-25-2024 Anticoagulant drug monitoring 04/25/2024 2:00 PM EST Anticoagulation [facility] [address] [place] [address] Wstr, [facility] [place] [address] [place] [address] inr [facility] [place] Comment on above: inr Start: 04-02-2024 DIABETES SCREEN DIABETES SCREEN [facility] Start: 03-28-2024 End: 03-28-2024 Anticoagulant drug monitoring 03/28/2024 2:00 PM EDT Anticoagulation [facility] [place] [address] [place] [address] [facility]str[facility] [place] [address] [place] [address] inr [facility] [place] Comment on above: inr Start: 03-26-2024 End: 03-26-2024 Anticoagulant drug monitoring 03/26/2024 1:45 PM EDT Anticoagulation [facility] [place] [address] [facility] [place] [address] Wstr, Anticoag [facility] [place] [address] [facility] [place] [address] inr [facility] [place] Comment on above: inr Start: 03-12-2024 End: 03-12-2024 Anticoagulant drug monitoring 03/12/2024 2:15 PM EDT Anticoagulation [facility] [place] [address] [facility] [place] [address] Wstr, Anticoag [facility] [place] [address] [facility] [place] [address] inr [facility] [place] Comment on above: inr Start: 03-05-2024 End: 03-05-2024 Anticoagulant drug monitoring 03/05/2024 2:00 PM EDT Anticoagulation [facility] [place] [address] [facility] [place] [address] Wstr, Anticoag [facility] [place] [address] [facility] [place] [address] inr [facility] [place] Comment on above: inr Start: 02-22-2024 End: 02-22-2024 Anticoagulant drug monitoring 02/22/2024 2:00 PM EDT Anticoagulation [facility] [place] [address] [facility] [place] [address] Wstr, Anticoag [facility] [place] [address] [facility] [place] [address] inr [facility] [place] Comment on above: inr Start: 02-04-2024 Covid-19 Vaccine () Covid-19 Vaccine () [facility] Start: 02-04-2024 Covid-19 Vaccine ( season) Covid-19 Vaccine () [facility] Start: 02-04-2024 Influenza vaccination [facility] Start: 01-21-2024 HEMOGLOBIN/HEMATOCRIT HEMOGLOBIN/HEMATOCRIT [facility] Start: 01-18-2024 End: 01-18-2024 Anticoagulant drug monitoring 01/18/2024 2:00 PM EDT Anticoagulation [facility] [place] [address] [facility] [place] [address] Wstr, Anticoag [facility] [place] [address] [facility] [place] [address] inr [facility] [place] Comment on above: inr Start: 12-24-2023 HEMOGLOBIN/HEMATOCRIT HEMOGLOBIN/HEMATOCRIT [facility] Start: 12-21-2023 End: 12-21-2023 Anticoagulant drug monitoring 12/21/2023 2:00 PM EDT Anticoagulation [facility] [place] [address] [facility] [place] [address] Wstr, Anticoag [facility] [place] [address] [facility] [place] [address] inr [facility] [place] Comment on above: inr Start: 12-03-2023 [facility] Comment [facility]: Postp[facility] from 02/03/2023 (Declined at t his time) Start: 11-30-2023 End: 11-30-2023 Anticoagulant drug monitoring 11/30/2023 2:00 PM EDT Anticoagulation [facility] [place] [address] [facility] [place] [address] Wstr, Anticoag [facility] [place] [address] [facility] [place] [address] inr [facility] [place] Comment on above: inr Start: 11-30-2023 End: 02-29-2024 Basic metabolic 2000 panel - Serum or Plasma [facility] Work Phone: Comment on above: Expected: 11/30/2023, Expires: Start: 11-30-2023 End: 02-29-2024 CBC W Auto Differential panel - Blood [facility] Comment on above: Expected: 11/30/2023, Expires: Start: 11-30-2023 End: 02-29-2024 Hemoglobin A1c in Blood [facility] Comment on above: Expected: 11/30/2023, Expires: Start: 11-30-2023 End: 02-29-2024 Magnesium [Mass/volume] in Serum or Plasma [facility] Comment on above: Expected: 11/30/2023, Expires: Start: 11-30-2023 End: 02-29-2024 Microalbumin/Creatinine [Mass Ratio] in Urine [facility] Comment on above: Expected: 11/30/2023, Expires: Start: 11-30-2023 End: 02-29-2024 PT panel - Platelet poor plasma by Coagulation assay PROTHROMBIN TIME Lab Routine Paroxysmal atrial fibrillation (HCC) Expected: 11/30/2023, Expires: 02/29/2024 [facility] Comment on above: Expected: 11/30/2023, Expires: Start: 11-14-2023 End: 11-14-2023 Patient encounter procedure 11/14/2023 1:40 PM EDT Office Visit Family Medicine [place] [address] [place] [id number] Christopher Bonilla MD [address] [place] [address] 6 mth f/u [facility] [place] Comment on above: 6 mth f/u [facility] Start: 11-09-2023 ANNUAL PCP TEAM CHRONIC DISEASE VISIT ANNUAL PCP TEAM CHRONIC DISEASE VISIT [facility] Start: 11-09-2023 BP CONTROLLED (<130/80) BP CONTROLLED (<130/80) [facility] in Start: 11-09-2023 COVID-19 VACCINE (#1) COVID-19 VACCINE (#1) [facility] Comment on above: Postponed from 03/23/1946 (Declined at t his time) Start: 11-09-2023 HEMOGLOBIN/HEMATOCRIT HEMOGLOBIN/HEMATOCRIT [facility] Start: 11-09-2023 SHINGRIX VACCINE (1 of 2) SHINGRIX VACCINE (1 of 2) [facility] Comment on above: Postponed from 09/22/1995 (Declined at t his time) Start: 11-02-2023 End: 11-02-2023 Anticoagulant drug monitoring 11/02/2023 1:15 PM EDT Anticoagulation [facility] [place] [address] [facility] [place] [address] [facility]str, [facility] [place] [address] [facility] [place] [address] inr [facility] [place] Comment on above: inr Start: 10-19-2023 End: 10-19-2023 Anticoagulant drug monitoring 10/19/2023 1:30 PM EDT Anticoagulation [facility] [place] [address] [facility] [place] [address] [facility]str, [facility] [place] [address] [facility] [place] [address] inr [facility] [place] Comment on above: inr Start: 10-05-2023 End: 10-05-2023 Anticoagulant drug monitoring 10/05/2023 1:30 PM EDT Anticoagulation [facility] [place] [address] [facility] [place] [address] [facility]str, [facility] [place] [address] [facility] [address] inr [facility] [place] Comment on above: inr Start: 09-20-2023 ANNUAL PCP TEAM CHRONIC DISEASE VISIT ANNUAL PCP TEAM CHRONIC DISEASE VISIT [facility] Start: 09-20-2023 HEMOGLOBIN/HEMATOCRIT HEMOGLOBIN/HEMATOCRIT [facility] Start: 09-20-2023 SERUM CREATININE SERUM CREATININE [facility] Start: 09-02-2023 ANNUAL PCP TEAM CHRONIC DISEASE VISIT ANNUAL PCP TEAM CHRONIC DISEASE VISIT [facility] Start: 09-02-2023 BP CONTROLLED (<130/80) BP CONTROLLED (<130/80) [facility] Start: 07-28-2023 ANNUAL PCP TEAM CHRONIC DISEASE VISIT ANNUAL PCP TEAM CHRONIC DISEASE VISIT [facility] Start: 07-28-2023 BP CONTROLLED (<130/80) BP CONTROLLED (<130/80) [facility] Start: 07-14-2023 ANNUAL PCP TEAM CHRONIC DISEASE VISIT ANNUAL PCP TEAM CHRONIC DISEASE VISIT [facility] Start: 07-14-2023 BP CONTROLLED (<130/80) BP CONTROLLED (<130/80) [facility] Start: 06-05-2023 Advance Directive Discussion Advance Directive Discussion [facility] Start: 06-05-2023 Behavioral Health Screening Behavioral Health Screening [facility] Start: 06-05-2023 Depression Assessment Depression Assessment [facility] Start: 05-10-2023 End: 08-09-2023 Comprehensive metabolic 2000 panel - Serum or Plasma [facility] Work Phone: Comment on above: Expected: 05/10/2023, Expires: Start: 05-10-2023 End: 08-09-2023 Hemoglobin A1c in Blood [facility] Work Phone: Comment on above: Expected: 05/10/2023, Expires: 4 Start: 05-10-2023 End: 08-09-2023 Iron and Iron binding capacity panel - Serum or Plasma [facility] Work Phone: Comment on above: Expected: 05/10/2023, Expires: 4 Start: 05-10-2023 End: 08-09-2023 LIPID PANEL, NONFASTING [facility] Work Phone: Comment on above: Expected: 05/10/2023, Expires: 4 Start: 05-10-2023 End: 08-09-2023 Thyrotropin [Units/volume] in Serum or Plasma [facility] Work Phone: Comment on above: Expected: 05/10/2023, Expires: 4 Start: 05-02-2023 End: 08-01-2023 PT panel - Platelet poor plasma by Coagulation assay PROTHROMBIN TIME/PT Lab STAT Coagulopathy (HCC) Expected: 05/02/2023, Expires: 08/01/2023 [facility] Work Phone: Comment on above: Expected: 05/02/2023, Expires: 4 Start: 04-19-2023 ANNUAL PCP TEAM CHRONIC DISEASE VISIT ANNUAL PCP TEAM CHRONIC DISEASE VISIT [facility] Start: 04-19-2023 BP CONTROLLED (<130/80) BP CONTROLLED (<130/80) [facility] Start: 03-15-2023 ANNUAL PCP TEAM CHRONIC DISEASE VISIT ANNUAL PCP TEAM CHRONIC DISEASE VISIT [facility] Start: 03-15-2023 BP CONTROLLED (<130/80) BP CONTROLLED (<130/80) [facility] Start: 03-02-2023 BP CONTROLLED (<130/80) BP CONTROLLED (<130/80) [facility] Start: 02-24-2023 BP CONTROLLED (<130/80) BP CONTROLLED (<130/80) [facility] Start: 02-18-2023 BP CONTROLLED (<130/80) BP CONTROLLED (<130/80) [facility] Start: 02-17-2023 BP CONTROLLED (<130/80) BP CONTROLLED (<130/80) [facility] Start: 02-15-2023 BP CONTROLLED (<130/80) BP CONTROLLED (<130/80) [facility] Start: 02-14-2023 Egd transoral biopsy single/multiple EGD BIOPSY SINGLE/MULTIPLE [facility] Start: 02-14-2023 Patient discharge [facility] Start: 02-11-2023 ANNUAL PCP TEAM CHRONIC DISEASE VISIT ANNUAL PCP TEAM CHRONIC DISEASE VISIT [facility] Start: 02-10-2023 BP CONTROLLED (<130/80) BP CONTROLLED (<130/80) [facility] Start: 02-10-2023 End: 04-12-2023 PT panel - Platelet poor plasma by Coagulation assay PROTHROMBIN TIME/PT Lab Routine Chronic anticoagulation Expected: 02/10/2023, Expires: 04/12/2023 [facility] Work Phone: Comment on above: Expected: 02/10/2023, Expires: 3 Start: 02-09-2023 BP CONTROLLED (<130/80) BP CONTROLLED (<130/80) [facility] Start: 02-03-2023 Covid-19 Vaccine ( season) Covid-19 Vaccine () [facility] Start: 02-03-2023 Influenza vaccination [facility] Start: 01-14-2023 Adult depression screening assessment DEPRESSION SCREENING [facility] Start: 01-14-2023 ANNUAL PCP TEAM CHRONIC DISEASE VISIT ANNUAL PCP TEAM CHRONIC DISEASE VISIT [facility] Start: 01-14-2023 BP CONTROLLED (<130/80) BP CONTROLLED (<130/80) [facility] Start: 01-13-2023 End: 03-15-2023 Herpes simplex virus+Varicella zoster virus DNA [Presence] in Unspecified specimen by KASHIF with probe detection [facility] Work Phone: Comment on above: Expected: 01/13/2023, Expires: 3 Start: 12-02-2022 Influenza vaccination INFLUENZA (#1) [facility] Comment on above: Postponed from 02/03/2022 (Declined at t his time) Start: 11-08-2022 End: 01-08-2023 Ferritin [Mass/volume] in Serum or Plasma [facility] Work Phone: Comment on above: Expected: 11/08/2022, Expires: 3 Start: 11-08-2022 End: 01-08-2023 Hemoglobin A1c in Blood [facility] Work Phone: Comment on above: Expected: 11/08/2022, Expires: 3 Start: 11-08-2022 End: 01-08-2023 Iron and Iron binding capacity panel - Serum or Plasma [facility] Work Phone: Comment on above: Expected: 11/08/2022, Expires: 3 Start: 10-04-2022 ANNUAL PCP TEAM CHRONIC DISEASE VISIT ANNUAL PCP TEAM CHRONIC DISEASE VISIT [facility] Start: 10-04-2022 BP CONTROLLED (<130/80) BP CONTROLLED (<130/80) [facility] Start: 2022 End: 11-21-2022 ALK PHOS ISOENZYM BL ALK PHOS ISOENZYM BL Lab Routine Elevated alkaline phosphatase level Expected: 2022, Expires: 11/21/2022 [facility] Work Phone: Comment on above: Expected: 2022, Expires: 3 Start: 09-19-2022 End: 11-19-2022 C reactive protein [Mass/volume] in Serum or Plasma [facility] Work Phone: Comment on above: Expected: 09/19/2022, Expires: 3 Start: 09-19-2022 End: 11-19-2022 Comprehensive metabolic 2000 panel - Serum or Plasma [facility] Work Phone: Comment on above: Expected: 09/19/2022, Expires: 3 Start: 09-19-2022 End: 11-19-2022 Lipase [Enzymatic activity/volume] in Serum or Plasma [facility] Work Phone: Comment on above: Expected: 09/19/2022, Expires: 3 Start: 09-19-2022 End: 11-19-2022 URINALYSIS, DIPSTICK ONLY URINALYSIS, DIPSTICK ONLY Lab Routine Abdominal swelling, generalized Epigastric pain Expected: 09/19/2022, Expires: 11/19/2022 [facility] Work Phone: Comment on above: Expected: 09/19/2022, Expires: 3 Start: 08-25-2022 ANNUAL PCP TEAM CHRONIC DISEASE VISIT ANNUAL PCP TEAM CHRONIC DISEASE VISIT [facility] Start: 08-25-2022 BP CONTROLLED (<130/80) BP CONTROLLED (<130/80) [facility] Start: 06-05-2022 ADVANCE DIRECTIVE DISCUSSION ADVANCE DIRECTIVE DISCUSSION [facility] Start: 06-05-2022 DEPRESSION ASSESSMENT DEPRESSION ASSESSMENT [facility] Start: 05-11-2022 Adult depression screening assessment DEPRESSION SCREENING [facility] Start: 05-11-2022 COVID-19 VACCINE (#1) COVID-19 VACCINE (#1) [facility] Comment on above: Postponed from 1950 (Declined at t his time) Postponed from 03/23 (Declined at this time) Start: 05-11-2022 COVID-19 VACCINE (1) COVID-19 VACCINE (1) [facility] Comment on above: Postponed from 1950 (Declined at t his time) Start: 05-11-2022 SHINGRIX VACCINE (1 of 2) SHINGRIX VACCINE (1 of 2) [facility] Comment on above: Postponed from 09/22/1995 (Declined at t his time) Start: 04-20-2022 End: 06-20-2022 Basic metabolic 2000 panel - Serum or Plasma BASIC METABOLIC PNL Lab Routine Renal insufficiency Expected: 04/20/2022, Expires: 06/20/2022 [facility] Work Phone: Comment on above: Expected: 04/20/2022, Expires: 3 Start: 04-19-2022 End: 04-19-2023 CBC W Auto Differential panel - Blood [facility] Work Phone: Comment on above: Expected: 04/19/2022, Expires: 3 Start: 04-19-2022 End: 04-19-2023 Comprehensive metabolic 2000 panel - Serum or Plasma [facility] Work Phone: Comment on above: Expected: 04/19/2022, Expires: 3 Start: 04-19-2022 End: 06-19-2022 Hemoglobin A1c in Blood [facility] Work Phone: Comment on above: Expected: 04/19/2022, Expires: 3 Start: 04-19-2022 End: 06-19-2022 LIPID PANEL, NONFASTING [facility] Work Phone: Comment on above: Expected: 04/19/2022, Expires: 3 Start: 04-06-2022 End: 06-06-2022 Hemoglobin A1c/Hemoglobin.total in Blood HGB A1C Lab Routine Prediabetes Expected: 04/06/2022, Expires: 06/06/2022 [facility] Work Phone: Comment on above: Expected: 04/06/2022, Expires: 3 Start: 03-16-2022 End: 09-14-2022 CBC W Auto Differential panel - Blood CBC + DIFF Lab Routine Chronic anticoagulation Expected: 03/16/2022, Expires: 09/14/2022 [facility] Work Phone: Comment on above: Expected: 03/16/2022, Expires: 3 Start: 03-16-2022 End: 09-14-2022 Comprehensive metabolic 2000 panel - Serum or Plasma COMP METABOLIC PANEL Lab Routine Renal insufficiency Prediabetes Hypertension, essential Chronic anticoagulation Expected: 03/16/2022, Expires: 09/14/2022 [facility] Work Phone: Comment on above: Expected: 03/16/2022, Expires: 3 Start: 03-16-2022 End: 09-14-2022 Hemoglobin A1c in Blood HGB A1C Lab Routine Prediabetes Expected: 03/16/2022, Expires: 09/14/2022 [facility] Work Phone: Comment on above: Expected: 03/16/2022, Expires: 3 Start: 03-16-2022 End: 09-14-2022 Lipid 1996 panel - Serum or Plasma LIPID PANEL BASIC Lab Routine Hyperlipidemia, unspecified hyperlipidemia type Expected: 03/16/2022, Expires: 09/14/2022 [facility] Work Phone: Comment on above: Expected: 03/16/2022, Expires: 3 Start: 03-16-2022 End: 09-14-2022 Magnesium [Mass/volume] in Serum or Plasma MAGNESIUM BLD Lab Routine Gastroesophageal reflux disease, unspecified whether esophagitis present Expected: 03/16/2022, Expires: 09/14/2022 [facility] Work Phone: Comment on above: Expected: 03/16/2022, Expires: 3 Start: 02-23-2022 End: 04-25-2022 PT panel - Platelet poor plasma by Coagulation assay PROTHROMBIN TIME/PT Lab Routine Paroxysmal atrial fibrillation (HCC) Expected: 02/23/2022, Expires: 04/25/2022 [facility] Work Phone: Comment on above: Expected: 02/23/2022, Expires: Start: 02-03-2022 Influenza vaccination [facility] Start: 02-03-2022 Prothrombin time [facility] Work Phone: Start: 02-02-2022 Prothrombin time [facility] Work Phone: Start: 02-01-2022 Prothrombin time [facility] Work Phone: Start: 01-31-2022 Patient discharge [facility] Work Phone: Start: 01-30-2022 Speech therapy assessment [facility] Work Phone: Start: 01-30-2022 [facility] Work Phone: Start: 01-28-2022 Consultation [facility] Work Phone: Start: 01-28-2022 Following clinical pathway protocol [facility] Work Phone: Start: 01-27-2022 [facility] Work Phone: Start: 01-27-2022 Drainage tube care management [facility] Work Phone: Start: 01-27-2022 Referral to service [facility] Work Phone: Start: 01-27-2022 Referral to general surgeon [facility] Work Phone: Start: 01-27-2022 [facility] Work Phone: Start: 01-27-2022 Consultation [facility] Work Phone: Start: 01-26-2022 Vital signs measurements [facility] Work Phone: Start: 01-26-2022 [facility] Work Phone: Start: 01-26-2022 Application of intermittent pneumatic compression device [facility] Work Phone: Start: 01-26-2022 Following clinical pathway protocol [facility] Work Phone: Start: 01-26-2022 Assessment of risk of venous thromboembolism [facility] Work Phone: Start: 01-26-2022 Catheterization of vein [facility] Work Phone: Start: 01-26-2022 Elevation of head of bed [facility] Work Phone: Start: 01-26-2022 Incentive spirometry [facility] Work Phone: Start: 01-26-2022 Inhalation therapy procedure [facility] Work Phone: Start: 01-26-2022 Insertion of catheter into peripheral vein [facility] Work Phone: Start: 01-26-2022 Measuring intake and output [facility] Work Phone: Start: 01-26-2022 Oxygen therapy [facility] Work Phone: Start: 01-26-2022 Patient education [facility] Work Phone: Start: 01-26-2022 Providing care according to standard [facility] Work Phone: Start: 01-26-2022 Provision of activity privileges [facility] Work Phone: Start: 01-26-2022 Referral to occupational therapist [facility] Work Phone: Start: 01-26-2022 Referral to service [facility] Work Phone: Start: 01-26-2022 End: 01-26-2022 [facility] Work Phone: Start: 01-26-2022 Admission procedure [facility] Work Phone: Start: 12-02-2021 Influenza vaccination INFLUENZA (#1) [facility] Comment on above: Postponed from 02/03/2021 (Declined at t his time) Start: 10-06-2021 End: 12-06-2021 Basic metabolic 2000 panel - Serum or Plasma BASIC METABOLIC PNL Lab Routine Renal insufficiency Prediabetes Expected: 10/06/2021, Expires: 12/06/2021 [facility] Work Phone: Comment on above: Expected: 10/06/2021, Expires: 2 Start: 10-06-2021 End: 12-06-2021 Hemoglobin A1c/Hemoglobin.total in Blood [facility] A1C Lab Routine Renal insufficiency Prediabetes Expected: 10/06/2021, Expires: 12/06/2021 [facility] Work Phone: Comment on above: Expected: 10/06/2021, Expires: 2 Start: 10-04-2021 End: 12-04-2021 CBC W Auto Differential panel - Blood [facility] Work Phone: Comment on above: Expected: 10/04/2021, Expires: 2 Start: 10-04-2021 End: 12-04-2021 Comprehensive metabolic 2000 panel - Serum or Plasma [facility] Work Phone: Comment on above: Expected: 10/04/2021, Expires: 2 Start: 10-04-2021 End: 12-04-2021 Thyrotropin [Units/volume] in Serum or Plasma [facility] Work Phone: Comment on above: Expected: 10/04/2021, Expires: 2 Start: 09-20-2021 End: 11-20-2021 PT panel - Platelet poor plasma by Coagulation assay [facility] Work Phone: Comment on above: Expected: 09/20/2021, Expires: 2 Start: 06-05-2021 ADVANCE DIRECTIVE DISCUSSION ADVANCE DIRECTIVE DISCUSSION [facility] Start: 06-05-2021 DEPRESSION ASSESSMENT DEPRESSION ASSESSMENT [facility] Start: 2020 RSV Vaccine (1 - 1-dose 75+ series) RSV Vaccine (1 - 1-dose 75+ series) [facility] Start: 10-17-2019 Colonoscopy COLONOSCOPY [facility] Start: 10-17-2019 COLORECTAL CANCER SCREENING COLORECTAL CANCER SCREENING [facility] Start: 08-21-2012 FECAL OCCULT BLOOD FECAL OCCULT BLOOD [facility] Start: 2005 RSV Vaccine (1 - 1-dose 60+ series) RSV Vaccine (1 - 1-dose 60+ series) [facility] Start: 09-22-1995 SHINGRIX VACCINE (1 of 2) SHINGRIX VACCINE (1 of 2) [facility] Start: 1990 COLOGUARD (FIT-DNA) COLOGUARD (FIT-DNA) [facility] Start: [address] COLONOGRAPHY [facility] Start: 1990 SIGMOIDOSCOPY SIGMOIDOSCOPY [facility] Start: 09-22-1963 BP CONTROLLED (<130/80) BP CONTROLLED (<130/80) [facility] Start: 03-23-1946 COVID-19 VACCINE (#1) COVID-19 VACCINE (#1) [facility] 24 Hour ECG [facility] Basic metabolic 2008 panel with ionized calcium - Serum or Plasma [facility] End: 11-04-2023 Bone &/joint imaging whole body NM BONE WHOLE BODY Radiology Routine Elevated alkaline phosphatase level 1 Occurrences starting 10/05/2022 until 11/04/2023 [facility] Work Phone: Comment on above: 1 Occurrences starting 10/05/2022 until 11/04/2023 Cytology report of B axel fluid Cyto stain [facility] Work Phone: End: 03-15-2023 INR in Platelet poor plasma by Coagulation assay INR (POC) Lab Routine Atrial fibrillation, chronic (HCC) Once per month for 99 Occurrences starting 03/15/2022 until 03/15/2023 [facility] Work Phone: Comment on above: Once per month for 99 Occurrences starti ng 03/15/2022 until 03/15/2023 End: 03-30-2024 INR in Platelet poor plasma by Coagulation assay INR (POC) Lab Routine Atrial fibrillation, chronic (HCC) Once per month for 99 Occurrences starting 03/30/2023 until 03/30/2024 [facility] Work Phone: Comment on above: Once per month for 99 Occurrences starti ng 03/30/2023 until 03/30/2024 End: 04-25-2025 INR in Platelet poor plasma by Coagulation assay INR (POC) Lab Routine Atrial fibrillation, chronic (HCC) Once per month for 99 Occurrences starting 04/25/2024 until 04/25/2025 [facility] Work Phone: Comment on above: Once per month for 99 Occurrences starti ng 04/25/2024 until 04/25/2025 Measurement of respiratory function [facility] Work Phone: Natriuretic peptide. B prohormone N-Terminal [Mass/volume] in Serum or Plasma [facility] Patient Education [facility] Work Phone: Patient referral [facility] Work Phone: Procalcitonin [Mass/volume] in Serum or Plasma by Immunoassay [facility] Prothrombin time [facility] End: 03-15-2023 PT panel - Platelet poor plasma by Coagulation assay PROTHROMBIN TIME/PT Lab STAT Atrial fibrillation, chronic (HCC) Once per month for 99 Occurrences starting 03/15/2022 until 03/15/2023 [facility] Work Phone: Comment on above: Once per month for 99 Occurrences starti ng 03/15/2022 until 03/15/2023 End: 03-29-2024 PT panel - Platelet poor plasma by Coagulation assay PROTHROMBIN TIME/PT Lab STAT Atrial fibrillation, chronic (HCC) Once per month for 99 Occurrences starting 03/30/2023 until 03/29/2024 [facility] Work Phone: Comment on above: Once per month for 99 Occurrences starti ng 03/30/2023 until 03/29/2024 End: 04-25-2025 PT panel - Platelet poor plasma by Coagulation assay PROTHROMBIN TIME Lab STAT Atrial fibrillation, chronic (HCC) Once per month for 99 Occurrences starting 04/25/2024 until 04/25/2025 [facility] Comment on above: Once per month for 99 Occurrences starti ng 04/25/2024 until 04/25/2025 End: 10-01-2023 US ABDOMEN COMPLETE US ABDOMEN COMPLETE Radiology Routine Renal mass Liver mass 1 Occurrences starting 09/01/2022 until 10/01/2023 [facility] Work Phone: Comment on above: 1 Occurrences starting 09/01/2022 until 10/01/2023 End: 05-19-2023 Us soft tissue head & neck real time imge docm US THYROID/PARATHYROID Radiology Routine Thyroid nodule 1 Occurrences starting 04/19/2022 until 05/19/2023 [facility] Work Phone: Comment on above: 1 Occurrences starting 04/19/2022 until 05/19/2023 End: 10-19-2023 XR ABDOMEN 1V SUPINE XR ABDOMEN 1V SUPINE Radiology Routine Abdominal swelling, generalized Epigastric pain 1 Occurrences starting 09/19/2022 until 10/19/2023 [facility] Work Phone: Comment on above: 1 Occurrences starting 09/19/2022 until 10/19/2023 XR ABDOMEN 1V SUPINE XR ABDOMEN 1V SUPINE Radiology Routine Abdominal swelling, generalized Epigastric pain 09/19/2022 3:21 PM EDT [facility] Work Phone: XR Chest PA and Lateral [facility] Work Phone: [facility] Immunizations Immunization Date Immunization Notes Care Provider Fa aleksandra 05-08-2018 influenza virus vacc ine, unspecified formulation Christopher Bonilla MD Work Phone: [facility] 07-20-2015 pneumococcal conjuga te vaccine, 13 valent Christopher Bonilal MD Work Phone: [facility] 07-20-2015 tetanus toxoid, redu perlita diphtheria toxoid, and acellular pertussis vaccine, adsorbed Christopher Bonilla MD Work Phone: [facility] 04-16-2014 influenza, high dose seasonal, preservative-free Christopher Bonilla MD Work Phone: [facility] 08-15-2011 pneumococcal polysaccharide vaccine, 23 valent Christopher Bonilla MD Work Phone: [facility] Payers Date Payer Category Payer Medicaid [id number] 2024 [facility] [id number] 2024 Self-pay [id number] 2022 Medicaid [id number] 2022 Medicare (Managed Care) 1.2. [id number] 2022 Private Health Insurance [id number] 2021 Medicare HUMANA MEDICARE HUMANA MEDICARE PPO [id number] 2021-Present [phone] [address] [address] [place] [address] PPO [id number] 2016 Medicare [id number] 2010 Medicare [id number] 1945 Unknown [id number] 27 Medicare [id number] Unknown [id number] 2.16.840.1.652307.3.579.2.4 62 Unknown [id number] 2.16.840.1.242876.3.579.2.4 62 Unknown [id number] 2.16.840.1.520914.3.579.2.4 62 Unknown [id number] 2.16.840.1.296139.3.579.2.4 62 Unknown [id number] 2.16.840.1.559967.3.579.2.4 62 Unknown [id number] 2.16.840.1.253498.3.579.2.4 62 Unknown [id number] 2.16.840.1.312557.3.579.2.4 62 Unknown [id number] 2.16.840.1.959548.3.579.2.4 62 Unknown [id number] 2.16.840.1.213723.3.579.2.4 62 Unknown [id number] 2.16.840.1.186643.3.579.2.4 62 Unknown [id number] 2.16.840.1.403435.3.579.2.4 62 Unknown [id number] 2.16.840.1.553926.3.579.2.4 62 Unknown [id number] 2.16.840.1.144833.3.579.2.4 62 Unknown [id number] 2.16.840.1.671453.3.579.2.4 62 Unknown [id number] 2.16.840.1.715919.3.579.2.4 62 Unknown [id number] 2.16.840.1.027588.3.579.2.4 62 Unknown [id number] 2.16.840.1.640965.3.579.2.4 62 Unknown [id number] 2.16.840.1.059213.3.579.2.4 62 Unknown [id number] 2.16.840.1.287095.3.579.2.4 62 Unknown [id number] 2.16.840.1.924446.3.579.2.4 62 Unknown [id number] 2.16.840.1.696474.3.579.2.4 62 Unknown [id number] 2.16.840.1.894748.3.579.2.4 62 Social History Date Type Detail Facility Start: 01-14-2022 End: 01-22-2025 Tobacco smoking status NHIS Never smoked tobacco [facility] Work Phone: Start: 08-25-2021 End: 12-13-2024 Alcohol intake Current non-drinker of alcohol (finding) [facility] Start: 1945 Sex Assigned At Not on file [facility] Start: 05-19-2021 End: 04-19-2022 Exposure to SARS-CoV-2 (event) Not sure [facility] Start: 08-15-2021 End: 06-15-2023 Tobacco smoking status IDIS Unknown if ever smoked [facility] Start: 06-01-2020 None [facility] Start: 06-01-2020 With Family [facility] Start: 05-24-2019 Non-smoker [facility] Start: 1945 Sex Assigned At Female W [facility] Start: 01-19-2011 End: 01-14-2022 Tobacco use and exposure Smokeless tobacco non-user [facility] Start: 01-14-2022 Tobacco Comment Spouse smoked cigars in home until about 2004. [facility] Start: 02-02-2022 History SDOH Financial 5 [facility] Start: 02-02-2022 History SDOH Food Worry 1 [facility] Start: 02-02-2022 History SDOH Transpo rt Med 2 [facility] Start: 10-13-2022 End: 11-08-2022 History of Social function [facility] Start: 10-13-2022 End: 11-08-2022 Tobacco use panel [facility] Start: 05-06-2012 How hard is it for y ou to pay for the very basics like food, housing, medical care, and heating Not hard at all [facility] (I/We) worried wheashutosh er (my/our) food would run out before (I/we) got money to buy more. Never true [facility] In the past 12 month s, was there a time when you were not able to pay the mortgage or rent on time? No [facility] Start: 04-04-2020 End: 05-04-2020 Exposure to SARS-CoV-2 (event) Yes [facility] How often to you hav e a drink containing alcohol? Never [facility] Goals Date Patient Goal Desired [...] Assessment Result Facility 01-25-2025 Functional status Ambulates [facility] Work Phone: 12-13-2024 Total score [AUDIT-C] 0 12/14/19 25 2:16 PM EDT Debbie Long MA [facility] 01-31-2022 Functional status Ambulates;Beds al Commode [facility] Work Phone: 09-16-2021 Functional status Ambulates [facility] Work Phone: 07-22-2021 Functional status Ambulates [facility] Work Phone: 07-09-2021 Functional status Ambulates [facility] Work Phone: 07-08-2021 Functional status Assistive Devices None [facility] Work Phone: 06-23-2021 Functional status Ambulates [facility] Work Phone: 06-22-2021 Functional status None [facility] Work Phone: 12-11-2014 Are you deaf, or do you have serious difficulty hearing No 12/11/2014 1:20 PM EDT Jason MaxRn)(Hist), RN No [facility] 12-11-2014 Are you blind, or do you have serious difficulty seeing, even when wearing glasses No 12/11/2014 1:20 PM EDJason LutzRn)(Hist), RN No [facility] 12-11-2014 Do you have serious difficulty walking or climbing stairs No 12/11/2014 1:20 PM EDT Jason MaxRn)(Hist), RN No [facility] 12-11-2014 Do you have difficul ty dressing or bathing No 12/11/2014 1:20 PM Jason CruzRn)(Hist), RN No [facility] 12-11-2014 Because of a physica l, mental, or emotional condition, do you have difficulty doing errands alone such as visiting a physician's office or shopping No 12/11/2014 1:20 PM Jason CruzRn)(Hist), RN No [facility] Mental Status Date Assessment Result Facility 01-25-2025 Cognitive function Voice/Name [facility] Work Phone: 02-14-2023 Cognitive function Voice/Name;Touch/Shaki ng [facility] Work Phone: 01-31-2022 Cognitive function Demonstrates ability to follow instructions/comprehend [facility] Work Phone: 01-31-2022 Cognitive function Voice/Name [facility] Work Phone: 01-26-2022 Cognitive function Level Of Cons ciousness Awake;Alert;Appropriate;Fol lows Commands [facility] Work Phone: 09-16-2021 Cognitive function Voice/Name [facility] Work Phone: 07-22-2021 Cognitive function Voice/Name [facility] Work Phone: 07-16-2021 Cognitive function Level Of Cons ciousness Awake;Alert;Appropriate;Fol lows Commands [facility] Work Phone: 07-09-2021 Cognitive function Level Of Cons ciousness Alert;Appropriate;Follows Commands [facility] Work Phone: 07-09-2021 Cognitive function Voice/Name [facility] Work Phone: 06-23-2021 Cognitive function Voice/Name [facility] Work Phone: 06-22-2021 Cognitive function Level Of Cons ciousness Awake;Alert;Appropriate;Fol lows Commands [facility] Work Phone: 12-11-2014 Because of a physica l, mental, or emotional condition, do you have serious difficulty concentrating, remembering, or making decisions No 12/11/2014 1:20 PM Jason CruzRn)(Hist), RN No [facility] Clinical Notes 03-23-2020 to 04-08-2025 Telephone Encounter - Alma Delia Doyle RN - 02/18/2025 1:43 PM EDTTelephone Encounter - Alma Delia Doyle RN - 02/18/2025 1:43 PM EDTTelephone Encounter - Christopher Bonilla MD - 02/18/2025 1:27 PM EDT Note Date & Type Note Facility 04-08-2025 Note [facility] 03-04-[address] [facility] 02-18-2025 Telephone encounter Note [facility] Nurse Smith, given message below. Message also given to patient by this nurse. Alma Delia Doyle RN [facility] 02-18-2025 Miscellaneous Notes [facility] Nurse Smith, given message below. Message also given to patient by this nurse. Alma Delia Doyle RN Keep the appt for inr Hold today and tomorrow and resume 2 mg a day. Recheck the Smith [facility] Nurse calling. Pt had INR scheduled for 02/21 at [facility]. [facility] was able to complete for patient at her home today instead. Last INR: INR 4.0 02/18/2025 Current dose of coumadin is: 2mg Mon,Wed and 3mg all other days. Last date of dose change: 03/05/2024. Previous INR (date and result): 2.6 on 01/16/25 patient had inr completed 02/18/25 by [facility] Nurse patients inr is 4.0 (patients inr range is 2.0-3.0) patient is currently taking 2mg Mon,Wed and 3mg all other days patients last dose change was on 03/05/24 due to a high level of 3.4 (dose at that time was 2mg Mon and 3mg all other days) 1) Please call [facility] Nurse with orders. 2) Please call patient with orders also, Note: [place]. 3) Does provider want pt to keep [facility] appt for INR on 02/21, or change? Alma Delia Doyle RN documented in this encounter [facility] 02-18-2025 Telephone encounter Note [facility] Nurse Smith, given message below. Message also given to patient by this nurse. Alma Delia Doyle RN [facility] 02-18-2025 Miscellaneous Notes [facility] Nurse Smith, given message below. Message also given to patient by this nurse. Alma Delia Doyle RN Check hr when there for next visit and see what it is. 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 [facility] Nurse Smith calling with the [...] RN documented in this encounter [facility] 02-18-2025 Telephone encounter Note Keep the appt for inr Hold today and tomorrow and resume 2 mg a day. Recheck the [facility] 02-18-2025 Telephone encounter Note Check hr when there for next visit and see what it is. 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 [facility] 02-18-2025 Telephone encounter Note [facility] Nurse Smith calling with the [...] made by PCP. Alma Delia Doyle RN T [facility] 02-18-2025 Telephone encounter Note Smith [facility] Nurse calling. Pt had INR scheduled for 02/21 at [facility]. [facility] was able to complete for patient at her home today instead. Last INR: INR 4.0 02/18/2025 Current dose of coumadin is: 2mg Mon,Wed and 3mg all other days. Last date of dose change: 03/05/2024. Previous INR (date and result): 2.6 on 01/16/25 patient had inr completed 02/18/25 by [facility] Nurse patients inr is 4.0 (patients inr range is 2.0-3.0) patient is currently taking 2mg Mon,Wed and 3mg all other days patients last dose change was on 03/05/24 due to a high level of 3.4 (dose at that time was 2mg Mon and 3mg all other days) 1) Please call [facility] Nurse with orders. 2) Please call patient with orders also, Note: She [place]. 3) Does provider want pt to keep [facility] appt for INR on 02/21, or change? Alma Delia Doyle, RN [facility] 02-07-2025 Telephone encounter Note OV note faxed to [facility]. Isaiah Skinner LPN [facility] 02-07-2025 Miscellaneous Notes OV note faxed to [facility]. Isaiah Skinner LPN Can we please fax notes to Yanely at [facility] so that she is aware of hospitalization and recommended cardiology follow-up in 1-2 weeks. Dalila Jensen APRN.CNP documented in this encounter [facility] 02-07-2025 Telephone encounter Note Can we please fax notes to Yanely at [facility] so that she is aware of hospitalization and recommended cardiology follow-up in 1-2 weeks. Dalila Jensen APRN.CNP [facility] 02-05-2025 Telephone encounter Note See office notes. Dalila Jensen APRN.CNP [facility] Work Phone: 02-05-2025 Miscellaneous Notes See office notes. Dalila Jensen APRN.CNP Maggie [facility] Nurse calling to give pt update. Pt [...] Call nurse Maggie for any orders, at [phone] Will send this update to provider Dalila, since she will be seeing pt tomorrow. Alma Delia Doyle, RN documented in this encounter [facility] 02-05-2025 Instructions Dalila Jensen APRN.CNP - 02/05/2025 2:57 PM EDT Decrease the lasix to 40 mg in the morning and 20 mg in the afternoon/evening. Recheck in 1 week. documented in this encounter [facility] 02-05-2025 History of Presen t [...] present at today's visit. 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 Patient/authorized sales representative [employer] agreed to proceed Subjective Recent Hospitalization: - [...] for stability. - Libra describes dizziness as off and on, with episodes varying in duration and intensity. - Denies dizziness when initially getting up in the morning. COPD: - Diagnosed with COPD; recent exacerbation during hospitalization. - Libra reports improved respiratory status since discharge. CHF: - Managed by homicide squad sergeant Yanely at [facility]. - Scheduled for a follow-up appointment in [...] changes. - Follow-up with cardiology (Yanely at [facility]) was recommended within 1-2 weeks post-discharge; [...] needed for worsening/no improvement. Dalila Jensen APRN.TRICIA documented in this encounter [facility] 02-04-2025 Telephone encounter Note Maggie [facility] Nurse calling to give pt update. Pt [...] Call nurse Maggie for any orders, at [phone] Will send this update to provider Dalila, since she will be seeing pt tomorrow. Alma Delia Doyle RN [facility] 01-31-2025 Telephone encounter Note Noted. Looks ok. [facility] 01-31-2025 Miscellaneous Notes Noted. Looks ok. Brandon from [facility] calls and states that patient's blood pressure was 108/72 and pulse was Irregular at 83 BPM. Deana Coleman RN Left message on [facility] Clinical Vacuum Pan Tender, voicemail to call back with pulse rate. [...] to contact her heart dr. Marquise- PT- [facility] reporting POC: saw patient one time only for 1 visit for home safety eval. Reports pt's HR today on POX was 107 and on automatic BP cuff was 125. Pt reports she has a-fib. Reports patient has CHF & COPD but only had shortness of breath when going up stairs, no shortness of breath at rest. documented in this encounter [facility] 01-30-2025 Telephone encounter Note Brandon from [facility] calls and states that patient's blood pressure was 108/72 and pulse was Irregular at 83 BPM. Deana Coleman RN [facility] 01-30-2025 Telephone encounter Note Left message on [facility] Clinical Vacuum Pan Tender, voicemail to call back with pulse rate. Spoke with Libra. She said the nurse told her, her oxygen was perfect, her blood pressure was fine. She could not remember what her pulse was. She is feel better today. Debbie Long MA January 30, 2025 3:56 PM [facility] 01-29-2025 Telephone encounter Note Noted. See what pulse rate is in am when they return [facility] 01-29-2025 Telephone encounter Note Call [...] feel bad and she agrees. [facility] 01-29-2025 Telephone encounter Note Are we able to have her check her hr now. If still above 100, needs to contact her heart dr. [facility] 01-29-2025 Telephone encounter Note Marquise- PT- [facility] HH reporting POC: saw patient one time only for 1 visit for home safety eval. Reports pt's HR today on POX was 107 and on automatic BP cuff was 125. Pt reports she has a-fib. Reports patient has CHF & COPD but only had shortness of breath when going up stairs, no shortness of breath at rest. [facility] 01-28-2025 Telephone encounter Note Left detailed message for Jillian with HH. [facility] 01-28-2025 Miscellaneous Notes Left detailed message for Jillian with HH. Ok for below Jillian from [facility] Home Health calling to report patient pulse was 112, patient had not taken her Metoprolol dose yet, just woken up when nurse got there. Patient is taking her Gabapentin 100 mg at bedtime as needed to help her sleep. Requesting a Social Work referral, patient was asking for help with living will, getting a scale and blood pressure cuff. Plan of care for correction will be 2 visits for one week, then 1 visit weekly for 3 weeks, working on CHF, afib teaching. Request refill on albuterol inhaler to go to [facility] pharmacy. Pending rx to file. Please advise documented in this encounter [facility] 01-27-2025 Telephone encounter Note Ok for below [facility] 01-27-2025 History of Presen t illness Narrative TRANSITION CARE MANAGEMENT (TCM) INITIAL CONTACT Provider Action/FYI: Review Initial contact with patient post discharge, spoke to patient. Patient identified by name and . TCM Eligibility Documentation The following information was gathered during patient outreach 01/27/2025 Date of Outreach: Outreach Attempt 1: Contact Made Date of Discharge 01/25/2025 SUMMARY: -Pt discharged from [facility] on 01/25/25. -Follow up appointment on 01/29/25. -Medication review done yes. -Admitted for: CHF CONCERNS: CHF NEW MEDICATIONS: Yes, Pt did not remember but mentioned two were ordered. Pt thought one medication was steroids MEDS HELD/DISCONTINUED: No BRIEF HOSPITAL COURSE: documented in this encounter [facility] 01-27-2025 Telephone encounter Note Jillian from [facility] Home Health calling to report patient pulse was 112, patient had not taken her Metoprolol dose yet, just woken up when nurse got there. Patient is taking her Gabapentin 100 mg at bedtime as needed to help her sleep. Requesting a Social Work referral, patient was asking for help with living will, getting a scale and blood pressure cuff. Plan of care for correction will be 2 visits for one week, then 1 visit weekly for 3 weeks, working on CHF, afib teaching. Request refill on albuterol inhaler to go to [facility] pharmacy. Pending rx to file. Please advise [facility] 01-25-2025 Discharge summary [facility] 01-25-2025 Note [facility] 01-24-2025 Progress note Note Date/Time January 24, 2025 3:25pm [facility] Medical Records Department [address] [place] [address] Progress Note 01/24/25 0958 MR#: [id number] Acct: [id number] Name: LIBRA CEJA Rep #:[id number] : 1945 79 From: Christine Borges MD PCP: Dr. Christopher Bonilla MD Status:ADM I N Location: [place] [address] Subjective Subjective Patient seen and examined with [...] 92.7 H, Lymph % (Auto) 3.9 L, [place] % (Auto) 2.5, Eos % (Auto) 0.0, [...] is 2.4 Charges/Coding Visit Charges Inpatient E&M: 40141 Subs Hosp L2 01/24/25 1525 <Electronically signed by Christine Borges MD> Christine Borges MD Cosigner Signature (if applicable): CC: ~ Signed [facility] Work Phone: 1(346) 942-975308-22-2025 Telephone encounter Note* Telephone Encounter - Cadence Bustillo LPN - 01/24/2025 3:31 PM EDT Notified. [facility]08-22-2025 Miscellaneous Notes* Telephone Encounter - Cadence Bustillo LPN - 01/24/2025 3:31 PM EDT Notified. * Telephone Encounter - Christopher Bonilla MD - 01/24/2025 3:10 PM EDT ok * Telephone Encounter - Nay Cottrell RN - 01/24/2025 2:54 PM EDT Edith with [facility] HH calls to ask if provider would be willing to follow their HH orders for SN and PT. Patient currently at [facility] for COPD and CHF exacerbation with hypoxemia. Plan is to discharge patienttomorrow after she has had another round of steroids. Patient will not be coming home on oxygen at this point. Call back number for Edith is [phone]. Please review and advise, Nay Cottrell RN documented in this encounter[facility] Progress note [facility] Medical Records Department [address] [place] [address] Progress Note 01/24/25 0958 MR#: [id number] Acct: [id number] Name: LIBRA CEJA Rep #:[id number] : 1945 79 From: Christine Borges MD PCP: Dr. Christopher Bonilla MD Status:ADM I N Location: [place] [address] Subjective Subjective Patient seen and examined with [...] 92.7 H, Lymph % (Auto) 3.9 L, [place] % (Auto) 2.5, Eos % (Auto) 0.0, [...] is 2.4 Charges/Coding Visit Charges Inpatient E&M: 29982 [facility] Hosp L2 01/24/25 1525 Christine Borges MD Cosigner Signature (if applicable): CC: ~ Signed [facility]08-22-2025 Telephone encounter Note* Telephone Encounter - Christopher Bonilla MD - 01/24/2025 3:10 PM EDT ok [facility]08-22-2025 Telephone encounter Note* Telephone Encounter - Nay Cottrell RN - 01/24/2025 2:54 PM EDT Edith with [facility] HH calls to ask if provider would be willing to follow their HH orders for SN and PT. Patient currently at [facility] for COPD and CHF exacerbation with hypoxemia. Plan is to discharge patienttomorrow after she has had another round of steroids. Patient will not be coming home on oxygen at this point. Call back number for Edith is [phone]. Please review and advise, Nay Cottrell RN [facility]08-21-2025 Progress note Author Christine Katerina [facility] Note Date/Time January 23, 2025 3: 33pm [facility] Medical Records Department [address] [place] [address] Progress Note 01/23/25 1508 MR#: [id number] Acct: [id number] Name: LIBRA CEJA Rep #:[id number] : 1945 79 From: Christine Borges MD PCP: Dr. Christopher Bonilla MD Status:ADM I N Location: [place] [address]- Subjective Subjective Patient seen and examined with [...] Clarity Clear, Urine pH 6.5, Ur Specific [place] 1.010, Urine Protein Negative, Urine Glucose (UA) [...] is pending. Charges/Coding Visit Charges Inpatient E&M: 56634 Subs Hosp L2 01/23/25 1533 <Electronically signed by Christine Borges MD> Christine Borges MD Cosigner Signature (if applicable): CC: ~ Signed [facility] Work Phone: 1(422) 876-502608-21-2025 Progress note [facility] Medical Records Department [address] [place] [address] Progress Note 01/23/25 1508 MR#: [id number] Acct: [id number] Name: LIBRA CEJA Rep #:[id number] : 1945 79 From: Christine Borges MD PCP: Dr. Christopher Bonilla MD Status:ADM I N Location: [place] [address] Subjective Subjective Patient seen and examined with [...] Clarity Clear, Urine pH 6.5, Ur Specific [place] 1.010, Urine Protein Negative, Urine Glucose (UA) [...] is pending. Charges/Coding Visit Charges Inpatient E&M: 21018 [facility] Hosp L2 01/23/25 4544 Christine Borges MD Cosigner Signature (if applicable): CC: ~ Signed [facility]08-21-2025 History and physical note Author Philip Kamara [facility] Note Date/Time January 22, 2025 10 :16pm [facility] Medical Records Department [address] [place] [address] H&P Exam - Hospitalist 01/22/25 1650 MR#: [id number] Acct: [id number] Name: LIBRA CEJA Rep #:[id number] : 1945 79 From: Philip berger DO PCP: Dr. Christopher Bonilla MD Status:ADM I N Location: [place] [address] HPI - General General Date of Admission: 01/22/25 Date of Service: 01/22/25 Chief Complaint: Fever/chills and nausea with vomiting HPI Narrative LIBRA CEJA, is a 79 F who presented to [facility] ED on 01/22/2025 with fever/chills and [...] today. Will be admitted for further management. 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 Reading Location: [id number] Abdomen/Pelvis CT 01/22/25 14:06 IMPRESSION: Small right pleural effusion with bibasilar scarring. Hepatomegaly. Stable small hepatic cysts. Multiple layering gallstones. Sigmoid diverticulosis. Reading Location: [facility] Assessment & Plan Assessment/Plan (1) CHF exacerbation: PLAN: Plan Patient is a 79-year-old female who presented to [facility] ED on 01/22/2025 with fever/chills, nausea [...] 75 minutes. Charges/Coding Visit Charges Inpatient E&M: 67507 Init Hosp L3 01/22/25 2606 <Electronically signed by Philip Kamara DO> Cosigner Signature (if applicable): CC: Dr. Philip Kamara DO; Dr. Christopher Bonilla MD~ Signed [facility] Work Phone: 1(842) 348-239208-20-2025 History and physical note [facility] Medical Records Department [address] [place] [address] H&P Exam - Hospitalist 01/22/25 1650 MR#: [id number] Acct: [id number] Name: LIBRA CEJA Rep #:[id number] : 1945 79 From: Philip berger DO PCP: Dr. Christopher Bonilla MD Status:ADM I N Location: [place] [id number]- [id number] HPI - General General Date of Admission: 01/22/25 Date of Service: 01/22/25 Chief Complaint: Fever/chills and nausea with vomiting HPI Narrative LIBRA CEJA, is a 79 F who presented to [facility] ED on 01/22/2025 with fever/chills and [...] today. Will be admitted for further management. REPLACED BY [facility] Medical History Mitral valve insufficiency Mata's esophagus with dysplasia Wears glasses Ambulates with cane Arthritis High cholesterol Difficulty chewing Shortness of breath on exertion History of echocardiogram Cardiology follow-up encounter Bloating Abdominal pain senior living current use of amiodarone Paroxysmal atrial fibrillation [...] 84.4 H, Lymph % (Auto) 5.2 L, [place] % (Auto) 9.4, Eos % (Auto) 0.1, [...] Clarity Clear, Urine pH 6.5, Ur Specific [place] 1.010, Urine Protein Negative, Urine Glucose (UA) Normal, UrineKetones Negative, Urine Occult Blood Negative,Urine Nitrite Negative, Urine Bilirubin Negative, Urine Urobilinogen Normal, Ur Leukocyte Esterase Negative, Urine RBC 0-5 SEEN, Urine WBC 0-5 SEEN, Ur Squamous Epith Cells 0-5 SEEN, Urine Bacteria RARE, Urine Mucus 0 SEEN Imaging Radiology Impression Chest X-Ray 01/22/25 13:41 IMPRESSION: Cardiomegaly and CHF. Reading Location: [id number] Abdomen/Pelvis CT 01/22/25 14:06 IMPRESSION: Small right pleural effusion with bibasilar scarring. Hepatomegaly. Stable small hepatic cysts. Multiple layering gallstones. Sigmoid diverticulosis. Reading Location: [id number] Assessment & Plan Assessment/Plan (1) CHF exacerbation: PLAN: Plan Patient is a 79-year-old female who presented to [facility] ED on 01/22/2025 with fever/chills, nausea [...] 75 minutes. Charges/Coding Visit Charges Inpatient E&M: 47659 Init Hosp L3 01/22/25 2216 Cosigner Signature (if applicable): CC: Dr. Philip Kamara DO; Dr. Christopher Bonilla MD~ Signed [facility]08-20-2025 Discharge summary Author Juan Vines [facility] Note Date/Time January 22, 2025 4: 54pm [facility] Medical Records Department [address] [place] [address] Emergency Department Summary 01/22/25 MR#: [id number] Acct: [id number] Name: LIBRA CEJA Rep #:[id number] : 1945 79 From: Juan Vines MD [...] similar symptoms: Yes Recent Illness/Hospitalization: No PFSH REPLACED BY [facility] Medical History Mitral valve insufficiency Mata's esophagus with dysplasia Wears glasses Ambulates with cane Arthritis High cholesterol Difficulty chewing Shortness of breath on exertion History of echocardiogram Cardiology follow-up encounter Bloating Abdominal pain senior living current use of amiodarone Paroxysmal atrial fibrillation [...] 84.4 H Lymph % (Auto) 5.2 L [place] % (Auto) 9.4 Eos % (Auto) 0.1 [...] Clarity Clear Urine pH 6.5 Ur Specific [place] 1.010 Urine Protein Negative Urine Glucose (UA) [...] 13:41 IMPRESSION: Cardiomegaly and CHF. Reading Location: [facility] Abdomen/Pelvis CT 01/22/25 14:06 IMPRESSION: Small right pleural effusion with bibasilar scarring. Hepatomegaly. Stable small hepatic cysts. Multiple layering gallstones. Sigmoid diverticulosis. Reading Location: [facility] Chest x-ray, 2 views, AP and lateral, [...] MD [Primary Care Provider] - Print Language: Honduran What to do if you have Problems For any increased pain, shortness of breath, bleeding, nausea or vomiting, chestpain, or any unexpected problems, contact your Primary Care Provider. Call [facility] ([phone]) or report to the closest Emergency Room. Call 911 if necessary. 01/22/25 1653 <Electronically signed by Juan Vines MD> Cosigner Signature (if applicable): CC: Dr. 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 Reading Location: [facility] Abdomen/Pelvis CT 01/22/25 14:06 IMPRESSION: Small right pleural effusion with bibasilar scarring. Hepatomegaly. Stable small hepatic cysts. Multiple layering gallstones. Sigmoid diverticulosis. Reading Location: [facility] Chest x-ray, 2 views, AP and lateral, [...] MD [Primary Care Provider] - Print Language: [place]uran What to do if you have Problems For any increased pain, shortness of breath, bleeding, nausea or vomiting, chestpain, or any unexpected problems, contact your Primary Care Provider. Call [facility] ([phone]) or report tothe closest Emergency Room. Call 911 if necessary. 01/22/25 1654 Cosigner Signature (if applicable): CC: Dr. Christopher Bonilla MD ~ Signed [facility]08-20-2025 Radiology Diagnostic study note [facility] Imaging Services [address] [place], [place] [id number] Abdomen/Pelvis W IV Cont ONLY MR#: [id number] Acct: [id number] Name: LIBRA CEJA Rep #: [id number] : 1945 F 79 From: Moise Jacobo MD PCP: Dr. Christopher Bonilla MD Status: REG E R Study:Abdomen/Pelvis W IV Cont ONLY Date of E xam: 01/22/25 Exam# [id number] Ordering Dr: Jayson Vines MD PROCEDURE: ABDOMEN/PELVIS [...] Multiple layering gallstones. Sigmoid diverticulosis. Reading Location: [id number] CC: Dr. Juan Vines MD; Dr. Christopher Bonilla MD ~ Typewriter Ribbon Winder: Signed [facility]08-20-2025 Radiology Diagnostic study note [facility] Imaging Services [address] [place] [address] Chest PA and Lateral MR#: [id number] Acct: [id number] Name: LIBRA CEJA Rep #: [id number] : 1945 F 79 From: Moise Jacobo MD PCP: Dr. Christopher Bonilla MD Status: PRE E R Study:Chest PA and Lateral Date of Exam: 01/22/25 Exam# [id number] Ordering Dr: Jayson Vines MD PROCEDURE: CHEST [...] Lateral IMPRESSION: Cardiomegaly and CHF. Reading Location: [facility] CC: Dr. Juan Vines MD; Dr. Christopher Bonilla MD ~ Typewriter Ribbon Winder: Signed [facility]08-14-2025 History of Present illness Narrative* Mimi Encinas APRN.CNP - 01/16/2025 5:16 PM EDT Agree with anticoag. * Yanely Posadas RN - 01/16/2025 2:47 PM EDT patient had inr completed at [facility] CC patients inr is 2.6 (patients inr [...] up INR. documented in this encounter[facility] Discharge summary [facility] Medical Records Department [address] [place] [address] Emergency Department Summary 01/02/25 MR#: [id number] Acct: [id number] Name: LIBRA CEJA Rep #:[id number] : 1945 79 From: Pablo winkler DO [...] intact Psych: Cooperative, appropriate mood and affect [facility] Medical History Mitral valve insufficiency Mata's esophagus with dysplasia Wears glasses Ambulates with cane Arthritis High cholesterol Difficulty chewing Shortness of breath on exertion History of echocardiogram Cardiology follow-up encounter Bloating 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 Reading Location: [id number] Discharge Plan Triage Chief Complaint: Diarrhea ED [...] ED symptoms change or worsen. Print Language: Honduran Disposition Disposition: Home, Self Care What to do if you have Problems For any increased pain, shortness of breath, bleeding, nausea or vomiting, chestpain, or any unexpected problems, contact your Primary Care Provider. Call [facility] ([phone]) or report tothe closest Emergency Room. Call 911 if necessary. 01/02/25 1417 Cosigner Signature (if applicable): CC: Dr. Christopher Bonilla MD ~ Signed [facility]07-31-2025 Discharge summary Author Pablo Watson [facility] Note Date/Time January 02, 2025 2:17 pm [facility] Medical Records Department [address] [place] [address] Emergency Department Summary 01/02/25 MR#: [id number] Acct: [id number] Name: LIBRA CEJA Rep #:[id number] : 1945 79 From: Pablo brandonett PCP: Dr. Christopher Bonilla MD Status:REG E [...] intact Psych: Cooperative, appropriate mood and affect [facility] Medical History Mitral valve insufficiency Mata's esophagus with dysplasia Wears glasses Ambulates with cane Arthritis High cholesterol Difficulty chewing Shortness of breath on exertion History of echocardiogram Cardiology follow-up encounter Bloating Abdominal pain senior living current use of amiodarone Paroxysmal atrial fibrillation [...] 75.9 H Lymph % (Auto) 10.2 L [place] % (Auto) 12.7 H Eos % (Auto) [...] Clarity Clear Urine pH 6.0 Ur Specific [place] 1.010 Urine Protein 30 H Urine Glucose [...] diverticulosis without evidence of diverticulitis. Reading Location: [id number] Discharge Plan Triage Chief Complaint: Diarrhea ED [...] ED symptoms change or worsen. Print Language: Honduran Disposition Disposition: Home, Self Care What to do if you have Problems For any increased pain, shortness of breath, bleeding, nausea or vomiting, chestpain, or any unexpected problems, contact your Primary Care Provider. Call [facility] ([phone]) or report to the closest Emergency Room. Call 911 if necessary. 01/02/25 1417 <Electronically signed by Pablo Watson DO> Cosigner Signature (if applicable): CC: Dr. Christopher Bonilla MD ~ Signed [facility] Work Phone: 1(924) 462-413307-31-2025 Radiology Diagnostic study note [facility] Imaging Services [address] [place] [address] Abdomen/Pelvis W IV Cont ONLY MR#: [id number] Acct: [id number] Name: LIBRA CEJA Rep #: [id number] : 1945 F 79 From: Moise Jacobo MD PCP: Dr. Christopher Bonilla MD Status: REG E R Study:Abdomen/Pelvis W IV Cont ONLY Date of E xam: 01/02/25 Exam# [id number] Ordering Dr: Pablo Dodd DO PROCEDURE: ABDOMEN/PELVIS [...] diverticulosis without evidence of diverticulitis. Reading Location: [id number] CC: Dr. Pablo Watson DO; Dr. Christopher Bonilla MD ~ Typewriter Ribbon Winder: Signed [facility]07-21-2025 Telephone encounter Note* Telephone Encounter - Cadence Bustillo LPN - 12/23/2024 12:00 PM EDT View External Labs - Chemistry [ID [id number]] View External Labs - Hematology [ID [id number]] Labs results from labs ordered at visit with Gali. See scanned documents. [facility]07-21-2025 Miscellaneous Notes* Telephone Encounter - Cadence Bustillo LPN - 12/23/2024 12:00 PM EDT View External Labs - Chemistry [ID [id number]] View External Labs - Hematology [ID [id number]] Labs results from labs ordered at visit with Gali. See scanned documents. documented in this encounterUniversity Hospitals [facility]07-[facility]-2025 Radiology Diagnostic study note [facility] Imaging Services [address] [place] [address] Chest PA and Lateral MR#: [id number] Acct: [id number] Name: LIBRA CEJA Rep #: [id number] : 1945 F 79 From: Ramesh Paige DO PCP: Dr. Christopher Bonilla MD Status: REG C NEYMAR Study:Chest PA and Lateral Date of Exam: 12/20/24 Exam# [id number] Ordering Dr: Hima Tijerina NP OFFBEARER-C PROCEDURE: CHEST PA AND LATERAL 12/20/2024 REASON [...] cardiopulmonary process is identified radiographically. Reading Location: [id number] CC: JUAN R Tijerina; Dr. Christopher Bonilla MD ~ Typewriter Ribbon Winder: Signed [facility]07-11-2025 Instructions* Patient Instructions* Mimi Encinas APRN.HOT SAW OPERATOR - 12/13/2024 2:41 PM EDT - Stop [...] pulmonary function test and chest x-ray at [facility] as arranged by your homicide squad sergeant. - Complete the lab work for thyroid function and amiodarone monitoring at [facility] when you go foryour tests; these orders have been sent to [facility]. - If you decide you d [...] review all the medicines you take, even [id number] medicines. As you get older, the way [...] medical conditions. documented in this encounterUniversity Hospitals [facility]07-[facility]-2025 History of Present illness Narrative* [...] as Physician (Urology) Flaquito Mariee MD as Salesperson Driver (Pulmonary Disease) Christopher Bonilla MD as Home Care Provider (Family Medicine) Mera Langford MD as Referring Dalila Jensen APRN.CNP as Ear Machine Operator (Family Medicine) Mimi Encinas APRN.CNP as Ear Machine Operator (Family Medicine) Concerns today: Fatigue, unsteady, upper [...] Regurgitation - 06/18/2021 Comment: 04/27/21 Echo at [facility]. Pulmonary Hypertension (Hcc) - 05/11/2021 Chronic Obstructive Pulmonary Disease (Hcc) - 04/28/2021 Comment: Dr Mariee released her from his care. Rheumatoid Arthritis, Unspecified ([facility]) - 04/28/2021 Comment: Has been stable. Not seen rheum in some time. Prediabetes - 09/25/2020 Thyroid Nodule - 05/11/2020 Comment: Seeing Abimael Evans Negative FNA 06/28-recommended repeat us in one year. Hypertension, Essential - 06/23/2015 Chronic Anticoagulation - 06/23/2015 Paroxysmal Atrial Fibrillation (Hcc) Comment: Sees [facility] Hyperlipidemia - 01/19/2011 Comment: Mildly elevated LDL, but high HDL. History of Polymyalgia Rheumatica - 01/19/2011 Marfan's Syndrome ([facility]) Esophageal Reflux ROS: Constitutional: (+) fatigue, (+) [...] intolerance PAST MEDICAL HISTORY Diagnosis Date A-fib ([facility]) Class 1 congestive heart failure, unspecified failure chronicity, systolic ([facility]) 11/21/2019 Dysphagia, unspecified(787.20) Esophageal reflux Esophagitis, unspecified Marfan's syndrome ([facility]) Moderate mitral regurgitation 06/18/2021 04/27/21 Echo at [facility]. Pleural effusion, right 05/05/2020 CXR [...] HYSTERECT W/WO RMVL TUBE OVARY Hysterectomy, MICHOACANO Medication List Current Outpatient Medications Medication Sig [...] Results to be sent to [facility] for review. 10. Chronic obstructive pulmonary disease, unspecified COPD type (HCC) (J44.9) - Scheduled for pulmonary function test and chest X-ray. - Results to be sent to [facility] for review. 11. Stage 3 [...] as Physician (Urology) Flaquito Mariee MD as Salesperson Driver (Pulmonary Disease) Christopher Bonilla MD as Home Care Provider (Family Medicine) Mera Langford MD as Referring Dalila Jensen APRN.CNP as Ear Machine Operator (Family Medicine) Mimi Encinas APRN.CNP as Ear Machine Operator (Family Medicine) Medical/Family history review Reviewed and [...] plan provided documented in this encounterUniversity Hospitals Ahuja [facility] Center07-03-2025 Evaluation note* Diagnosis Onset Date Resolution Status Admit Date Congestive heart failure (CHF) acute December 05, 2024 2:57pm Essential hypertension acute 2024 2:57pm 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 acute December 05, 2024 2 :57pm Mitral valve insufficiency acute December 05, 2024 2:57pm Paroxysmal atrial fibrillation acute December 05, 2024 2:57pm Pleural effusion acute December 2:57pm HLD (hyperlipidemia) inactive December 05, 2024 2:57pm [facility] Work Phone: 1(253) 807-236107-03-2025 Evaluation note* Diagnosis Onset Date Resolution Status Admit Date Congestive heart failure (CHF) acute December 05, 2024 2:57pm Essential hypertension acute 2024 2:57pm senior living current use of amiodarone acute December 05, [...] pulmonary disease chronic Au petr 2024 4:50pm [facility] Work Phone: 1(999) 355-612307-03-2025 Evaluation note* Diagnosis Onset Date Resolution Status Admit Date Congestive heart failure (CHF) acute December 05, 2024 2:57pm Essential hypertension acute Ju ly 2024 2:57pm 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 acute December 05, 2024 2 :57pm Mitral valve insufficiency acute December 05, 2024 2:57pm Paroxysmal atrial fibrillation acute December 05, 2024 2:57pm Pleural effusion acute December 2:57pm HLD (hyperlipidemia) inactive December 05, 2024 2:57pm Chronic anticoagulation acute A [id number] 4:50pm History of atrial fibrillation acute January 22, 2025 4:50pm Hypoxia acute January 22, 2 025 4:50pm Viral syndrome acute January 4:50pm Vomiting acute January 22, 2 025 4:50pm Acute exacerbation of chroni c obstructive pulmonary disease chronic 2024 4:50pm CHF exacerbation chronic January 042024 4:50pm [facility] Work Phone: 1(309) 699-823907-03-2025 Evaluation note* Diagnosis Onset Date Resolution Status Admit Date Congestive heart failure (CHF) acute December 05, 2024 2:57pm Essential hypertension acute Ju ly 2024 2:57pm senior living current use of amiodarone acute December 05, 2024 2 :57pm Mitral valve insufficiency acute December 05, 2024 2:57pm Paroxysmal atrial fibrillation acute December 05, 2024 2:57pm Pleural effusion acute December 2:57pm HLD (hyperlipidemia) inactive December 05, 2024 2:57pm Viral syndrome resolved January 4:50pm Vomiting resolved January 22, 2 025 4:50pm Acute exacerbation of chroni c obstructive pulmonary disease inactive 2024 4:50pm CHF exacerbation inactive January 042024 4:50pm Chronic anticoagulation inactive A ug2024 4:50pm History of atrial fibrillation inact aj January 22, 2025 4:50pm Hypoxia inactive January 22, 2 025 4:50pm Anticoagulant long-term use acute March 04, 2025 12:58pm Congestive heart failure (CHF) acute March 04, 2025 12:58pm Essential hypertension acute Se ptember 2024 12:58pm senior living current use of amiodarone acute March 04, 2025 12:58pm Paroxysmal atrial fibrillation acute March 04, 2025 12:58pm [facility] Work Phone: 1(437) 634-9314162480-18-6312 History of Present illness Narrative* Mimi Encinas APRN.CNP - 11/28/2024 3:26 PM EDT Agree with antico recommendation * Yanely Posadas RN - 11/28/2024 2:21 PM EDT patient had inr completed at [facility] patients inr is 2.5 (patients inr [...] up INR. documented in this encounterUniversity Hospitals Ahuja [facility] Center06-16-2025 Telephone encounter Note * Telephone Encounter - Myah Dunn RN - 11/18/2024 4:42 PM EDT Pt checking on reply and given provider's message below with verbalized understanding. Pt will let Dr. Flores know. [facility]06-16-2025 Miscellaneous Notes* Telephone Encounter - Myah Dunn RN - 11/18/2024 4:42 PM EDT [...] be ok. Patient requests call back at [phone] with provider response. Nay Cottrell RN documented in this encounterUniversity Hospitals Ahuja Medical Center06-16-2025 Telephone encounter Note * Telephone Encounter - Christopher Bonilla MD - 11/18/2024 4:30 PM EDT Ok to do [facility]06-16-2025 Telephone encounter Note* Telephone Encounter [...] be ok. Patient requests call back at [phone] with provider response. Nay Cottrell RN [facility]05-29-2025 History of Present illness Narrative* Mimi Encinas APRN.CNP - 10/31/2024 3:47 PM EDT Agree with [facility] recommendation * Yanely Posadas RN - 10/31/2024 3:08 PM EDT patient had inr completed at [facility] patients inr is 2.5 (patients [...] up INR. documented in this encounterUniversity Hospitals Ahuja [facility] Center05-01-2025 History of Present illness Narrative* Christopher Bonilla MD - 10/03/2024 2:55 PM EDT agree * Yanely Posadas RN - 10/03/2024 2:53 PM EDT patient had inr completed at [facility] patients inr is 2.3 (patients inr [...] up INR. documented in this encounterUniversity Hospitals Ahuja [facility] Center05-01-2025 Telephone encounter Note * Telephone [...] 03, 2024 2:56 PM ' [facility]05-01-2025 Miscellaneous Notes* Telephone Encounter - [...] PM ' documented in this encounterUniversity Hospitals Ahuja [facility] Center04-15-2025 Telephone encounter Note * Telephone Encounter - Myah Dunn RN - 09/17/2024 1:26 PM EDT [...] out and let pcp know. [facility]04-[facility]-2025 Miscellaneous Notes* Telephone Encounter - Myah Dunn RN - 09/17/2024 1:26 PM EDT [...] pcp know. documented in this encounterUniversity Hospitals Ahuja Medical Center03-31-2025 History of Present illness Narrative* Christopher Bonilla MD - 09/02/2024 2:48 PM EDT agree * Yanely Posadas RN - 09/02/2024 2:46 PM EDT patient had inr completed at [facility] patients inr is 2.5 (patients inr [...] up INR. documented in this encounterUniversity Hospitals Ahuja Medical Center02-24-2025 History of Present illness Narrative* Christopher Bonilla MD - 07/29/2024 2:22 PM EST agree * Yanely Posadas RN - 07/29/2024 2:10 PM EST patient had inr completed at [facility] patients inr is 2.7 (patients inr [...] up INR. documented in this encounterUniversity Hospitals Ahuja Medical Center02-17-2025 Telephone encounter Note * Telephone [...] review and advise. Gillian Schmitt [facility]02-17-2025 Miscellaneous Notes* Telephone Encounter - [...] Gillian Schmitt documented in this encounterUniversity Hospitals Ahuja Medical Center02-12-2025 Telephone encounter Note * Telephone Encounter - Seema Garcia MA - 07/17/2024 4:14 PM EST Patient informed of lab results and verbalized understanding. Seema Garcia MA [facility]02-12-2025 Miscellaneous Notes* Telephone Encounter - Seema Garcia MA - 07/17/2024 4:14 PM EST Patient informed of lab results and verbalized understanding. Seema Garcia MA documented in this encounterUniversity Hospitals Ahuja Medical Center01-24-2025 History of Present illness Narrative* Christopher Bonilla MD - 06/28/2024 2:06 PM EST agree * Yanely Posadas RN - 06/28/2024 1:40 PM EST patient had inr completed at [facility] patients inr is 2.4 (patients inr [...] up INR. documented in this encounterUniversity Hospitals Ahuja Medical Center01-16-2025 Telephone encounter Note * Telephone Encounter - Myah Dunn RN - 06/20/2024 12:34 PM EST [facility], but is having trouble finding a ride. Pt cancelled the appt and states she will just go to lab when she can find a ride, since thereis a standing order in the lab to check INR. [facility]01-16-2025 Miscellaneous Notes* Telephone Encounter - Myah Dunn RN - 06/20/2024 12:34 PM EST Patient reports [facility], but is having trouble finding a ride. Pt cancelled the appt and states she will just go to lab when she can find a ride, since thereis a standing order in the lab to check INR. documented in this encounterUniversity Hospitals Ahuja Medical Center01-13-2025 Telephone encounter Note * Telephone Encounter - Harley Ordaz LPN - 06/17/2024 2:52 PM EST Patient calling asking to have Gastro referral faxed to Dr Don Flores office at [phone]. Printedreferral, face sheet, office notes and faxed as requested. [facility]01-13-2025 Miscellaneous Notes* Telephone Encounter - Harley Ordaz LPN - 06/17/2024 2:52 PM EST Patient calling asking to have Gastro referral faxed to Dr Don Flores office at [phone]. Printedreferral, face sheet, office notes and faxed as requested. documented in this encounterUniversity Hospitals Ahuja Medical Center12-30-2024 Telephone encounter Note * Telephone Encounter - Debbie Long MA - 06/03/2024 12:22 PM EST Patient is willing to try medication. Please send to [facility]. She is aware will need to repeat labs in 6-8 weeks Debbie Long MA June 03, 2024 12:23 PM [facility]12-30-2024 Miscellaneous Notes* Telephone Encounter - Debbie Long MA - 06/03/2024 12:22 PM EST Patient is willing to try medication. Please send to [facility]. She is aware will need to repeat labs in 6-8 weeks Debbie Long MA June 03, 2024 12:23 PM * Telephone Encounter - Christopher Bonilla MD - 06/03/2024 11:57 AM EST Labs are stable, except her cholesterol is up. She had issues with crestor in the past, would she be willing to try a different one like lipitor? documented in this encounterUniversity Hospitals Ahuja Medical Center12-30-2024 Telephone encounter Note * Telephone Encounter - Christopher Bonilla MD - 06/03/2024 11:57 AM EST Labs are stable, except her cholesterol is up. She had issues with crestor in the past, would she be willing to try a different one like lipitor? [facility]12-27-2024 History of Present illness Narrative* [...] too fast so she is careful Sees [facility]. GERD: Patient takes: omeprazole Heartburn [...] Moderate mitral regurgitation 06/18/2021 04/27/21 Echo at [facility]. Pleural effusion, right 05/05/2020 CXR [...] 241.0, ICD10: E04.1 - per surgery at [facility]. Christopher Bonilla MD documented in this encounterUniversity Hospitals Ahuja Medical Center12-19-2024 History of Present illness Narrative* Mimi Encinas APRN.CNP - 05/23/2024 4:25 PM EST Agree with anticoag recommendations * Yanely Posadas, [place] - 05/23/2024 2:16 PM EST patient had inr completed at [facility] patients inr is 2.2 (patients inr [...] up INR. documented in this encounterUniversity Hospitals Ahuja Medical Center12-11-2024 History of Present illness Narrative* Jolene Osuna RN - 05/15/2024 10:50 AM EST [facility] Telephonic Outreach Provider Action/FYI Contacted for: Routine [...] more often than normal? No Based on fashion artist, the following disposition is advised: No symptoms or symptoms present, not severe. Routed to: No Action Needed FAVIOLA Education Provided this Outreach: No Jolene Osuna RN May 15, 2024 10:57 AM documented in this encounterUniversity Hospitals Ahuja Medical Center11-21-2024 History of Present illness Narrative* Mimi Encinas APRN.CNP - 04/25/2024 3:10 PM EST Agree with anticoag recommendation * Yanely Posadas RN - 04/25/2024 2:14 PM EST patient had inr completed at [facility] patients inr is 2.4 (patients inr [...] p INR. documented in this encounterUniversity Hospitals Ahuja Medical Center11-21-2024 Telephone encounter Note * Telephone Encounter - Yanely Posadas RN - 04/25/2024 2:16 PM EST patients orders for coumadin clinic inr's has at this time. new order has been pended for approval if possible so that patient can continue to get inr's completed thru the coumadin clinic. coumadin clinic nurse only needs called if order can not be approved. [facility]11-21-2024 Miscellaneous Notes* Telephone Encounter - [...] be approved. documented in this encounterUniversity Hospitals Ahuja Medical Center11-20-2024 History of Present illness Narrative* Jolene Osuna RN - 04/24/2024 5:58 PM EST [facility] Telephonic Outreach Provider Action/FYI Contacted for: Routine Telephonic Outreach Contact made with patient: No, unable to leave message. Jolene Osuna RN April 24, 2024 5:59 PM documented in this encounterUniversity Hospitals Ahuja Medical Center10-24-2024 History of Present illness Narrative* Mimi Encinas APRN.CNP - 03/28/2024 2:34 PM EDT Agree with anticoagulation recommendation * Yanely Posadas RN - 03/28/2024 2:25 PM EDT patient had inr completed at [facility] patients inr is 2.4 (patients inr [...] p INR. documented in this encounterUniversity Hospitals Ahuja Medical Center10-24-2024 Telephone encounter Note * Telephone [...] March 28, 2024 2:28 PM [facility]10-24-2024 Miscellaneous Notes* Telephone Encounter - [...] 2:28 PM documented in this encounterUniversity Hospitals Ahuja Medical Center10-23-2024 History of Present illness Narrative* Jolene Osuna RN - 03/27/2024 6:44 PM EDT [facility] Telephonic Outreach Provider Action/FYI Contacted for: Routine Telephonic Outreach Contact made with patient: Yes Patient would like a call back at another time, she is making dinner. Jolene Osuna RN March 27, 2024 6:46 PM documented in this encounterUniversity Hospitals Ahuja Medical Center10-08-2024 History of Present illness Narrative* Mimi Encinas APRN.CNP - 03/12/2024 2:37 PM EDT Agree with anticoag recommendations * Yanely Posadas RN - 03/12/2024 2:25 PM EDT patient had inr completed at [facility] patients inr is 2.5 (patients inr [...] dose change documented in this encounterUniversity Hospitals Ahuja Medical Center10-01-2024 History of Present illness Narrative* Christopher Bonilla MD - 03/05/2024 3:07 PM EDT agree * Yanely Posadas RN - 03/05/2024 2:51 PM EDT patient had inr completed at [facility] patients inr is 3.4 (patients inr [...] with recommendation documented in this encounterUniversity Hospitals Ahuja Medical Center09-26-2024 History of Present illness Narrative* [...] more often than normal? No Based on fashion artist, the following disposition is advised: No symptoms or symptoms present, not severe. Routed to: No Action Needed FAVIOLA Education Provided this Outreach: No Jolene Osuna RN February 29, 2024 1:30 PM documented in this encounterUniversity Hospitals Ahuja Medical Center09-24-2024 Telephone encounter Note * Telephone Encounter - Elisabeth Bettencourt MA - 02/27/2024 12:17 PM EDT Pt notified and voiced understanding. Tracker and med list updated. Elisabeth Bettencourt MA [facility]09-24-2024 Miscellaneous Notes* Telephone Encounter - [...] Current dose of coumadin is: 2 mg Mon/Wed, 3 mg all other days. Last date of dose change: 10/05/23. Previous INR (date and result): 01/18/24 INR: 2.2 Additional Clinical Information or narrative: no documented in this encounterUniversity Hospitals Ahuja Medical Center09-24-2024 Telephone encounter Note * Telephone Encounter - Christopher Bonilla MD - 02/27/2024 12:14 PM EDT 3 mg a day except 2 on M. Recheck one week [facility]09-24-2024 Telephone encounter Note* Telephone Encounter - Elisabeth Bettencourt MA - 02/27/2024 11:55 AM EDT Last INR: PT INR 1.9 02/26/2024 Current dose of coumadin is: 2 mg Mon/Wed, 3 mg all other days. Last date of dose change: 10/05/23. Previous INR (date and result): 01/18/24 INR: 2.2 Additional Clinical Information or narrative: no [facility]09-13-2024 Telephone encounter Note* Telephone Encounter [...] February 16, 2024 1:11 PM [facility]09-13-2024 Miscellaneous Notes* Telephone Encounter - [...] 1:11 PM documented in this encounterUniversity Hospitals Ahuja Medical Center09-13-2024 History of Present illness Narrative* Jolene Osuna RN - 02/16/2024 9:06 AM EDT [facility] Telephonic Outreach Provider Action/FYI Contacted for: Routine Telephonic Outreach Contact made with patient: No, left message. Jolene Osuna RN February 16, 2024 9:06 AM documented in this encounterUniversity Hospitals Ahuja Medical Center08-30-2024 History of Present illness Narrative* Jolene Osuna RN - 02/02/2024 9:59 AM EDT [facility] Telephonic Outreach Provider Action/FYI Contacted for: Routine Telephonic Outreach Contact made with patient: No, left message. Jolene Osuna RN February 02, 2024 10:00 AM * Jolene Osuna RN - 01/31/2024 11:08 AM EDT [facility] Telephonic Outreach Provider Action/FYI Contacted for: Routine Telephonic Outreach Contact made with patient: No, left message. Jolene Osuna RN January 31, 2024 11:09 AM documented in this encounterUniversity Hospitals Ahuja Medical Center08-15-2024 History of Present illness Narrative* Mimi Encinas APRN.CNP - 01/18/2024 4:57 PM EDT Agree with antico's recommendation. Follow-up INR in 4 weeks. * Yanely Posadas RN - 01/18/2024 3:00 PM EDT patient had inr completed at [facility] patients inr is 2.2 (patients inr [...] up INR. documented in this encounterUniversity Hospitals Ahuja Medical Center08-12-2024 Telephone encounter Note * Telephone Encounter - [place] Cecy Schmitt - 01/15/2024 4:12 PM EDT [...] January 15, 2024 4:13 PM [facility]08-12-2024 Miscellaneous Notes* Telephone Encounter - Cecy Moreno - 01/15/2024 4:12 PM EDT Prescription Refill [...] times a day for 180 days. Cecy Friedman [facility] January 15, 2024 4:13 PM documented in this encounterUniversity Hospitals Ahuja Medical Center08-01-2024 History of Present illness Narrative* Jolene Osuna RN - 01/04/2024 11:16 AM EDT [facility] Telephonic Outreach Provider Action/FYI Contacted for: Routine [...] more often than normal? No Based on fashion artist, the following disposition is advised: No symptoms or symptoms present, not severe. Routed to: No Action Needed FAVIOLA Education Provided this Outreach: No Jolene Osuna RN January 04, 2024 11:18 AM documented in this encounterUniversity Hospitals Ahuja Medical Center07-18-2024 History of Present illness Narrative* Yanely Posadas RN - 12/21/2023 4:41 PM EDT see phone encounter * Yanely Posadas RN - 12/21/2023 1:57 PM EDT patient had inr completed at [facility] patients inr is 2.3 (patients inr [...] verbalized understanding. Presently scheduled in 4 weeks (8/15/24) for follow up INR. documented in this encounterUniversity Hospitals Ahuja Medical Center07-18-2024 Telephone encounter Note * Telephone Encounter - Mimi Encinas APRN.CNP - 12/21/2023 2:01 PM EDT Agree with anticoag recommendations. Recheck in 4 weeks. [facility]07-18-2024 Miscellaneous Notes* Telephone Encounter - Mimi Encinas APRN.CNP - 12/21/2023 2:01 PM EDT Agree with anticoag recommendations. Recheck in 4 weeks. documented in this encounterUniversity Hospitals Ahuja Medical Center07-05-2024 History of Present illness Narrative* Teresa Mart RN - 12/08/2023 11:52 AM EDT [facility] Telephonic Outreach Provider Action/FYI I am doing good. I do not need anything. I get my medications from [facility] Contacted for: Routine Telephonic Outreach Contact made with patient: Yes Patient identified by name and date of . Discussed care with patient Are you experiencing any new or worsening symptoms you need to talk about today? No Disease Specific Do you check your blood pressure at home? No Do you have new or worsening shortness of breath with activity? No Based on fashion artist, the following disposition is advised: No symptoms or symptoms present, not severe. Routed to: No Action Needed FAVIOLA Education Provided this Outreach: No Teresa Mart RN December 08, 2023 11:55 AM documented in this encounterUniversity Hospitals Ahuja Medical Center07-03-2024 History of Present illness Narrative* Teresa Mart RN - 12/06/2023 3:16 PM EDT [facility] Telephonic Outreach Provider Action/FYI Contacted for: Routine Telephonic Outreach Contact made with patient: No, left message. Teresa Mart RN December 06, 2023 3:30 PM documented in this encounterUniversity Hospitals Ahuja Medical Center07-01-2024 Telephone encounter Note * Telephone Encounter - Sabrina Millan MSW - 12/04/2023 12:03 PM EDT Aníbal called and spoke with patient. Discussed patient reaching out to [facility],Service and Support Adult Protective Caseworker Dept. Discussed Medicaid and Waiver services and noted Board of [place]SA dept would be good place to start to see about service plan for patient son in regards to home care assistance and bed bug exterminator planning. Patient notes that she has [facility] Board of number. Patient notes that she will reach out and give them a call and see about patient son and how to best help him sign up for services. Patient reports that she is working right now with probate court in regards to applying for guardianship of son. Sw will also mail out [employer] Older Adult resource guide to patient home for community resource information. [facility]07-01-2024 Miscellaneous Notes* Telephone Encounter - Sabrina Millan MSW - 12/04/2023 12:03 PM EDT Aníbal called and spoke with patient. Discussed patient reaching out to [facility] [facility] Support Adult Protective Caseworker Dept. Discussed Medicaid and Waiver services and noted Board of [place]SA dept would be good place to start to see about service plan for patient son in regards to home care assistance and senior living planning. Patient notes that she has [facility] Board of number. Patient notes that she will reach out and give them a call and see about patient son and how to best help him sign up for services. Patient reports that she is working right now with probate court in regards to applying for guardianship of son. Sw will also mail out [employer] Older Adult resource guide to patient home [...] MA - 11/30/2023 2:57 PM EDT Consult criminal justice social worker for resources to plan for mentally disabled son if something were to happen to her, per provider Gali Encinas APRN documented in this encounterUniversity Hospitals Ahu[facility] Center06-28-2024 Telephone encounter Note * Telephone Encounter - Myah Dunn RN - 12/01/2023 10:19 AM EDT Patient returned call and given provider's message below with verbalized understanding. [facility]06-28-2024 Miscellaneous Notes* Telephone Encounter - Myah Dunn RN - 12/01/2023 10:19 AM EDT Patient returned call and given provider's message below with verbalized understanding. * Telephone Encounter - Debbie Long MA - 12/01/2023 10:13 AM EDT Left message for patient to return call. Debbie Long Ma * Telephone Encounter - Debbie Long MA - 12/01/2023 9:34 AM EDT ----- Message from Mimi Encinas APRN.BULL CHAIN OPERATOR sent at 12/01/2023 8:05 AM EDT ----- Diabetes is stable. Urine for microalbumin creatinine ratio notes no effect of diabetes on her kidneys. Kidney function is normal. Blood counts with possible early iron deficiency. Please consider either a multivitamin with iron or adding ferrous sulfate 325 mg daily. That is [id number]. documented in this encounterUniversity Hospitals Ahuja Medical Center06-28-2024 Telephone encounter Note * Telephone Encounter - Debbie Long MA - 12/01/2023 10:13 AM EDT Left message for patient to return call. Debbie Long Ma [facility]06-28-2024 Telephone encounter Note* Telephone Encounter - Debbie Long MA - 12/01/2023 9:34 AM EDT ----- Message from Mimi Encinas APRN.BULL CHAIN OPERATOR sent at 12/01/2023 8:05 AM EDT ----- Diabetes is stable. Urine for microalbumin creatinine ratio notes no effect of diabetes on her kidneys. Kidney function is normal. Blood counts with possible early iron deficiency. Please consider either a multivitamin with iron or adding ferrous sulfate 325 mg daily. That is [id number]. [facility]06-27-2024 Telephone encounter Note* Telephone Encounter [...] call again to patient 12/04/23. [facility]06-27-[facility] History of Present illness Narrative* Mimi Encinas APRN.CNS - 11/30/2023 3:08 PM EDT Please continue current dose and repeat INR in 4 weeks. * Yanely Posadas RN - 11/30/2023 2:41 PM EDT patient had inr completed at [facility] patients inr is 2.4 (patients inr [...] up INR. documented in this encounterUniversity Hospitals Ahuja Medical Center06-27-2024 Telephone encounter Note * Telephone Encounter - Debbie Long MA - 11/30/2023 2:57 PM EDT Consult criminal justice social worker for resources to plan for mentally disabled son if something were to happen to her, per provider Gali Encinas APRN [facility]06-27-2024 Instructions* Patient Instructions* Mimi Encinas APRN.CNS - 11/30/2023 1:33 PM EDT 1) Consider melatonin 3 mg at bedtime and repeat again if needed through night upon awakening 2) Incentive spirometer- train on using 3) Consult criminal justice social worker for resources to plan for mentally disabled son if something were to happen to her 4) Labs today (blood, urine, and anticoag) 5) Follow up in 6 months documented in this encounterUniversity Hospitals Ahuja Medical Center06-27-2024 History of Present illness Narrative* Mimi Encinas APRN.CNS - 11/30/2023 1:29 PM EDT This is a 78 year old female who presents today with: Patient presents with: 6 Month Exam HISTORY OF PRESENT ILLNESS: Libra Ceja is a 78 year old female. Patient presents with: 6 Month Exam Sometimes has a hard time going to sleep at night. PAST MEDICAL HISTORY: PAST MEDICAL HISTORY Diagnosis Date A-fib (HCC) Class 1 congestive heart failure, unspecified failure chronicity, systolic ([facility]) 11/21/2019 Dysphagia, unspecified(787.20) Esophageal reflux Esophagitis, unspecified Marfan's syndrome Moderate mitral regurgitation 06/18/2021 04/27/21 Echo at [facility]. Pleural effusion, right 05/05/2020 CXR [...] ICD9: 300.4, ICD10: F41.8 (primary diagnosis) Consult criminal justice social worker for information for adult care [...] as needed for worsening/no improvement. Mimi Encinas APRN.BULL CHAIN OPERATOR documented in this encounterUniversity Hospitals Ahuja Medical Center06-07-2024 History of Present illness Narrative* Jolene Osuna RN - 11/10/2023 10:56 AM EDT CD Telephonic Outreach Provider Action/FYI Patient has had [...] more often than normal? No Based on fashion artist, the following disposition is advised: No symptoms or symptoms present, not severe. Routed to: No Action Needed FAVIOLA Education Provided this Outreach: No Jolene Osuna RN November 10, 2023 10:59 AM * Jolene Osuna RN - 11/09/2023 1:58 PM EDT [facility] Telephonic Outreach Provider Action/FYI Contacted for: Routine Telephonic Outreach Contact made with patient: No, left message. Jolene Osuna RN November 09, 2023 1:58 PM documented in this encounterUniversity Hospitals Ahuja Medical Center05-30-2024 History of Present illness Narrative* Mimi Encinas APRN.CNS - 11/02/2023 1:40 PM EDT Agree with antico recommendations including follow-up in 4 weeks * Yanely Posadas RN - 11/02/2023 1:21 PM EDT patient had inr completed at [facility] patients inr is 2.3 (patients inr [...] up INR. documented in this encounterUniversity Hospitals Ahuja Medical Center05-22-2024 History of Present illness Narrative* Jolene Osuna RN - 10/25/2023 1:14 PM EDT [facility] Telephonic Outreach Provider Action/FYI Contacted for: Routine Telephonic Outreach Contact made with patient: No, left message. Jolene Osuna RN October 25, 2023 1:14 PM * Jolene Osuna RN - 10/23/2023 1:45 PM EDT [facility] Telephonic Outreach Provider Action/FYI Contacted for: Routine Telephonic Outreach Contact made with patient: No, left message. Jolene Osuna RN October 23, 2023 1:46 PM documented in this encounterUniversity Hospitals Ahuja Medical Center05-16-2024 History of Present illness Narrative* Mimi Encinas APRN.CNS - 10/19/2023 2:00 PM EDT Agree with anticoagulation recommendations * Yanely Posadas RN - 10/19/2023 1:57 PM EDT patient had inr completed at [facility] patients inr is 2.9 (patients inr [...] dose change documented in this encounterUniversity Hospitals Ahuja Medical Center05-02-2024 History of Present illness Narrative* Yanely Posadas RN - 10/05/2023 3:58 PM EDT PATIENT NOTIFIED OF INFORMATION * Mimi Encinas APRN.CNS - 10/05/2023 2:31 PM EDT Agree with anticoagulation clinic's recommendation * Yanely Posadas RN - 10/05/2023 1:37 PM EDT patient had inr completed at [facility] patients inr is 1.7 (patients inr [...] on recommendation documented in this encounterUniversity Hospitals Ahuja Medical Center04-23-2024 History of Present illness Narrative* Jolene Osuna RN - 09/26/2023 11:23 AM EDT M Telephonic Outreach Provider Action/[facility]ANGOI ECHO at [facility] tomorrow and her son will take her. [...] more often than normal? No Based on fashion artist, the following disposition is advised: No symptoms or symptoms present, not severe. Routed to: No Action Needed FAVIOLA Education Provided this Outreach: No Jolene Osuna RN September 26, 2023 11:26 AM documented in this encounterUniversity Hospitals Ahuja Medical Center04-18-2024 History of Present illness Narrative* Yanely Posadas RN - 2023 4:38 PM EDT PATIENT NOTIFIED OF INFORMATION * Christopher Bonilla MD - 2023 3:06 PM EDT agree * Yanely Posadas RN - 2023 2:54 PM EDT patient had inr completed at [facility] patients inr is 1.5 (patients inr [...] diet recommend: patient change coumadin to 2mg Mon,Mon,Mon and 3mg all other days and recheck inr in 2 weeks patient has been scheduled for a 2 week follow up inr on 10/05/23 please review and advise on recommendation documented in this encounterUniversity Hospitals Ahuja Medical Center04-04-2024 History of Present illness Narrative* [...] PM EDT patient had inr completed at [facility] patients inr is 1.3 (patients inr [...] on recommendation documented in this encounterUniversity Hospitals Ahuja Medical Center03-26-2024 History of Present illness Narrative* Jolene Osuna RN - 08/29/2023 1:00 PM EDT M Telephonic Outreach Provider Action/FYI Contacted [...] more often than normal? No Based on fashion artist, the following disposition is advised: No symptoms or symptoms present, not severe. Routed to: No Action Needed FAVIOLA Education Provided this Outreach: No Jolene Osuna RN August 29, 2023 1:02 PM documented in this encounterUniversity Hospitals Ahuja Medical Center03-19-2024 History of Present illness Narrative* Yanely Posadas RN - 08/22/2023 4:34 PM EDT PATIENT NOTIFIED OF INFORMATION * Christopher Bonilla MD - 08/22/2023 4:33 PM EDT agree * Yanely Posadas RN - 08/22/2023 4:02 PM EDT patient had inr completed at [facility] patients inr is 1.5 (patients inr [...] on recommendation documented in this encounterUniversity Hospitals Ahuja Medical Center03-12-2024 History of Present illness Narrative* Yanely Posadas RN - 08/15/2023 4:08 PM EDT PATIENT NOTIFIED OF INFORMATION * Christopher Bonilla MD - 08/15/2023 3:43 PM EDT agree * Yanely Posadas RN - 08/15/2023 3:32 PM EDT patient had inr completed at [facility] patients inr is 3.4 (patients inr [...] on recommendation documented in this encounterUniversity Hospitals Ahuja Medical Center02-29-2024 Miscellaneous Notes* Telephone Encounter - Mimi Encinas APRN.CNS - 08/03/2023 1:01 PM EST Metoprolol has been rewritten for 90-day prescription * Telephone Encounter - Concha Phipps - 08/03/2023 9:35 AM EST [facility] wants to know if rx [...] Concha Schmitt documented in this encounterUniversity Hospitals Ahuja Medical Center02-29-2024 History of Present illness Narrative* Mimi Encinas APRN.CNS - 08/03/2023 12:14 PM EST Agree with above. * Yanely Posadas RN - 08/01/2023 2:52 PM EST patient had inr completed at [facility] patients inr is 2.7 (patients inr [...] dose change documented in this encounterUniversity Hospitals Ahuja Medical Center02-28-2024 History of Present illness Narrative* Jolene Osuna RN - 08/02/2023 11:13 AM EST [facility] Telephonic Outreach Provider Action/FYI Contacted for: Routine [...] more often than normal? No Based on fashion artist, the following disposition is advised: No symptoms or symptoms present, not severe. Routed to: No Action Needed FAVIOLA Education Provided this Outreach: No Jolene Osuna RN August 02, 2023 11:14 AM documented in this encounterUniversity Hospitals Ahuja [facility] Center02-20-2024 History of Present illness Narrative* Yaneyl Posadas RN - 07/25/2023 3:53 PM EST PATIENT NOTIFIED OF INFORMATION * Christopher Bonilla MD - 07/25/2023 3:05 PM EST Agree. Rx sent * Yanely Posadas RN - 07/25/2023 2:47 PM EST patient had inr completed at [facility] patients inr is 3.2 (patients inr [...] pended 3mgrx for patient documented in this encounterCleveland [id number] Miscellaneous Notes* Telephone Encounter - Mimi Encinas APRN.CNS - 07/25/2023 3:15 PM EST Anti-coag clinic addressed INR with patient already. Patient verbalized changes with me at appointment. documented in this encounterUniversity Hospitals Ahuja Medical Center02-20-2024 Instructions* Patient Instructions* Mimi Encinas APRN.CNS - 07/25/2023 3:07 PM EST 1) Appointment in November already scheduled with Dr. Bonilla 2) INR addressed today by coumadin clinic documented in this encounterUniversity Hospitals Ahuja Medical Center02-20-2024 History of Present illness Narrative* [...] HISTORY: PAST MEDICAL HISTORY Diagnosis Date A-fib (HCC) Class 1 congestive heart failure, unspecified failure chronicity, systolic (HCC) 11/21/2019 Dysphagia, unspecified(787.20) Esophageal reflux Esophagitis, unspecified Marfan's syndrome Moderate mitral regurgitation 06/18/2021 04/27/21 Echo at [facility]. Pleural effusion, right 05/05/2020 CXR [...] the plan. documented in this encounterUniversity Hospitals Ahuja Medical Center02-05-2024 Instructions* Patient Instructions* Mimi Encinas APRN.CNS - 07/10/2023 3:39 PM EST 1) make appt. With cardiology\ 2) take all of doxycycline 100mg 2 x day for 10 days (hold calcium while on this) 3) Steroid taper 4) INR when finished with doxycycline 5) follow up in 2 weeks documented in this encounterUniversity Hospitals Ahuja Medical Center02-05-2024 History of Present illness Narrative* Mimi Encinas APRN.MICAH - 07/10/2023 3:00 PM EST This is [...] HISTORY: PAST MEDICAL HISTORY Diagnosis Date A-fib ([facility]) Class 1 congestive heart failure, unspecified failure chronicity, systolic ([facility]) 11/21/2019 Dysphagia, unspecified(787.20) Esophageal reflux Esophagitis, unspecified Marfan's syndrome Moderate mitral regurgitation 06/18/2021 04/27/21 Echo at [facility]. Pleural effusion, right 05/05/2020 CXR [...] the plan. documented in this encounterUniversity Hospitals Ahuja Medical Center02-05-2024 History of Present illness Narrative* Christopher Bonilla MD - 07/10/2023 2:47 PM EST agree * Yanely Posadas RN - 07/10/2023 2:15 PM EST patient had inr completed at [facility] patients inr is 2.5 (patients inr [...] dose change documented in this encounterUniversity Hospitals Ahuja Medical Center02-05-2024 Miscellaneous Notes* Telephone Encounter - [...] Posadas RN. documented in this encounterUniversity Hospitals Ahuja Medical Center12-21-2023 History of Present illness Narrative* Jolene Osuna RN - 05/25/2023 11:47 AM EST [facility] Telephonic Outreach Provider Action/FYI Patient's jazmine and [...] more often than normal? No Based on fashion artist, the following disposition is advised: No symptoms or symptoms present, not severe. Routed to: No Action Needed FAVIOLA Education Provided this Outreach: No Jolene Osuna RN May 25, 2023 11:51 AM documented in this encounterUniversity Hospitals Ahuja Medical Center12-08-2023 History of Present illness Narrative* Jason Gallegos DO - 05/12/2023 4:40 PM EST Agree with below Jason Gallegos DO * Yanely Posadas RN - 05/12/2023 1:43 PM EST patient had inr completed at [facility] patients inr is 2.3 (patients inr [...] p INR. documented in this encounterUniversity Hospitals Ahuja Medical Center12-07-2023 Miscellaneous Notes* Telephone Encounter - [...] 216 mg/dL documented in this encounterUniversity Hospitals Ahuja Medical Center12-06-2023 Miscellaneous Notes* Telephone Encounter - Heena Davidson - 05/10/2023 3:05 PM EST First call made to reschedule tomorrow's appointment with Jannet Evans @ 2:30 PM, myah. Heena Davidson May 10, 2023 3:06 PM documented in this encounterUniversity Hospitals Ahuja Medical Center12-06-2023 History of Present illness Narrative* [...] mata's. He recommended she follow with a inspector packer glass container. She has not done that. Continues on [...] congestive heart failure, unspecified failure chronicity, systolic ([facility]) 11/21/2019 Dysphagia, unspecified(787.20) Esophageal reflux Esophagitis, unspecified Marfan's syndrome Moderate mitral regurgitation 06/18/2021 04/27/21 Echo at [facility]. Pleural effusion, right 05/05/2020 CXR [...] Standing) Pulse 70 Ht 154.9 cm (5' 1) Wt 56.3 kg (124 lb 3.2 oz) [...] - had extensive mata's and surgery at [facility] recommended she obtain follow up with [...] six months. documented in this encounterUniversity Hospitals Ahuja Medical Center12-01-2023 Miscellaneous Notes* Telephone Encounter - [...] Villa Ma documented in this encounterUniversity Hospitals Ahuja Medical Center11-29-2023 Miscellaneous Notes* Telephone Encounter - [...] narrative: no documented in this encounterUniversity Hospitals Ahuja Medical Center11-27-2023 Miscellaneous Notes* Telephone Encounter - Cadence Bustillo LPN - 05/01/2023 5:52 PM EST [facility] will get for patient this evening please file. Libra is notified and will go get it tonight. * Telephone Encounter - Airam Ayon RN - 05/01/2023 5:41 PM EST Patient calling back to say Rubia Lancaster called local pharmacies for her and there is no Vitamin K in stock in the [place] area. Airam Ayon RN * Telephone Encounter [...] [facility] Airam Ayon, RN documented in this encounterUniversity Hospitals Ahuja Medical Center11-27-2023 Miscellaneous Notes* Telephone Encounter - [...] in am. documented in this encounterUniversity Hospitals Ahuja Medical Center11-07-2023 History of Present illness Narrative* Jolene Osuna RN - 04/11/2023 5:23 PM EST [facility] Telephonic Outreach Provider Action/FYI Contacted for: Routine [...] more often than normal? No Based on fashion artist, the following disposition is advised: No symptoms or symptoms present, not severe. Routed to: No Action Needed FAVIOLA Education Provided this Outreach: No Jolene Osuna RN April 11, 2023 5:25 PM documented in this encounterUniversity Hospitals Ahuja Medical Center10-26-2023 History of Present illness Narrative* Christopher Bonilla MD - 03/30/2023 4:35 PM EDT agree * Yanely Posadas RN - 03/30/2023 1:33 PM EDT patient had inr completed at [facility] patients inr is 2.2 (patients inr [...] p INR. documented in this encounterUniversity Hospitals Ahuja Medical Center10-26-2023 Miscellaneous Notes* Telephone Encounter - [...] be approved. documented in this encounterUniversity Hospitals Ahuja Medical Center10-11-2023 History of Present illness Narrative* Jolene Osuna RN - 03/15/2023 9:10 AM EDT [facility] Telephonic Outreach Provider Action/FYI Contacted for: Routine [...] more often than normal? No Based on fashion artist, the following disposition is advised: No symptoms or symptoms present, not severe. Routed to: No Action Needed FAVIOLA Education Provided this Outreach: No Jolene Osuna RN March 15, 2023 9:13 AM documented in this encounterUniversity Hospitals Ahuja Medical Center10-10-2023 History of Present illness Narrative* Christopher Bonilla MD - 03/14/2023 2:22 PM EDT agree * Yanely Posadas RN - 03/14/2023 2:17 PM EDT patient had inr completed at [facility] patients inr is 2.1 (patients inr range is 2.0-3.0) patient is currently taking 4mg Tues,Thurs and 2mg all other day days patients last dose change was on 01/20/23 due to a high level of 3.3 (dose at that time was 4mg ,Th,Mon and 2mg all other days) patient has [...] up INR. documented in this encounterUniversity Hospitals Ahuja Medical Center09-25-2023 Miscellaneous Notes* Telephone Encounter - [...] with VKA drugs, such as warfarin, the [employer] [employer] 2012 Guideline recommends [...] to 3.5 (target INR of 3). Marla CABALLERO, et al. Chest 2012, 141:7S-47S Les RA, et al. [facility] 2017, 70: 252-289 documented in this encounterUniversity Hospitals Ahuja Medical Center2023 Miscellaneous Notes* Telephone Encounter - Seema Garcia - 02/23/2023 2:49 PM EDT Patient informed and verbalized understanding. Seema Garcia * Telephone Encounter - Christopher Bonilla MD - 02/23/2023 2:24 PM EDT Ok. Back to 2 mg a day. Except 4 mg on Mon. Recheck Monday * Telephone Encounter - Jennifer Kimball Ma - 02/23/2023 2:19 PM EDT Last INR: PT INR 2.6 02/23/2023 Current dose of coumadin is: 6 mg on 02/21, 4 mg on 02/22 recheck 02/23/23. Last date of dose change: 02/21/23. Previous INR (date and result): 1.4 on 02/20/23 Additional Clinical Information or narrative: no Jennifer Kimball Ma documented in this encounterUniversity Hospitals Ahuja Medical Center09-20-2023 Miscellaneous Notes* Telephone Encounter - Briana Segura LPN - 02/22/2023 2:26 PM EDT Pt called and she is almost out of Warfarin and is in need of a short term sent to [facility] and the senior living to [facility]. Patient has been identified by name and [...] Segura LPN documented in this encounterUniversity Hospitals Ahuja Medical Center09-19-2023 Miscellaneous Notes* Telephone Encounter - [...] narrative: no documented in this encounterUniversity Hospitals Ahuja Medical Center09-16-2023 Miscellaneous Notes* Telephone Encounter - [...] day after. documented in this encounterUniversity Hospitals Ahuja Medical Center09-15-2023 History of Present illness Narrative* Jolene Osuna RN - 02/17/2023 10:30 AM EDT [facility] Telephonic Outreach Provider Action/FYI Contacted for: Routine [...] more often than normal? No Based on fashion artist, the following disposition is advised: No symptoms or symptoms present, not severe. Routed to: No Action Needed FAVIOLA Education Provided this Outreach: No Jolene Osuna RN February 17, 2023 10:33 AM * Jolene Osuna RN - 02/14/2023 10:32 AM EDT [facility] Telephonic Outreach Provider Action/FYI Contacted for: Routine Telephonic Outreach Contact made with patient: No, left message. Jolene Osuna RN February 14, 2023 10:33 AM documented in this encounterUniversity Hospitals Ahuja Medical Center09-13-2023 Miscellaneous Notes* Telephone Encounter - [...] Coleman RN documented in this encounterUniversity Hospitals Ahuja Medical Center09-12-2023 History and physical note Author Abimael Evans [facility] February 14, 2023 9:48am Note Date/Time February 14, 2023 9:48am [facility] Medical Records Department [address] [place] [id number] History & Physical Exam 02/14/2347 MR#: [id number] Acct: [id number] Name: LIBRA CEJA Rep #:[id number] : 1945 77 From: Abimael Evans MD PCP: Dr. Christopher Bonilla MD Status:REG S AL Location: [place] [address] History and Physical Date of Admission: 02/14/23 Visit Reasons: Discuss upper GI results & plan Chief Complaint: discuss CT results Health Science Specialist Required: No Is patient in pain?: No [...] .COMPLEX AFIB #60 tabs 07/18/22 [Rx Confirmed 01/10/23] metoprolol tartrate 100 mg tablet 100 mg PO DAILY #90 tabs 07/25/22 [Rx Confirmed 01/10/23] ferrous fumarate 324 mg (106 mg iron) tablet 324 mg PO DAILY 11/29/22 [History Confirmed 01/10/23] PFSH Medical History Abdominal pain Atrial fibrillation Bloating Chronic anticoagulation Chronic atrial fibrillation with RVR Congestive heart failure (CHF) COPD (chronic obstructive pulmonary disease) COPD (chronic obstructive pulmonary disease) Embolic infarction Essential hypertension Exudative pleural effusion GERD (gastroesophageal reflux disease) Goiter Hepatic congestion HLD (hyperlipidemia) HTN (hypertension) Hypertension Hypokalemia Hyponatremia Leukocytosis senior living current use of amiodarone Marfans syndrome Mixed [...] to provide a consultation on on November 29ecause of chronic anemia. 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 She has gallstones and sludge. Rheumatoid arthritis pulmonary emphysema and Marfan syndrome. She was complaining of abdominal bloating. At the time of her office visit I did not feel that the risk-benefit ratio of endoscopy was in her favor. On December 09, 2022she had abdominal CT at my request. I [...] 19:09 EDT Reading Location ID and State: [facility] / MD , Service support , ROS General General: [...] of exam. Abimael Evans M.D., F.A.C.S. 02/14/23 [id number] <Electronically signed by Abimael Evans MD> Cosigner Signature (if applicable): CC: Dr. Abimael Evans MD; Dr. Christopher Bonilla MD~ Signed [facility] Work Phone: 1(239) 427-501809-12-2023 Procedure [facility] 02-14-2023 Procedure [facility]09-08-2023 Miscellaneous Notes* Telephone Encounter - Cadence Bustillo LPN - 02/10/2023 2:04 PM EDT Spoke to patient and she verbalizes understanding. * Telephone Encounter - Myah Mehta PA-C - 02/10/2023 1:56 PM EDT Telephone on 02/10/23 PROTHROMBIN TIME/PT If surgeon wants checked I placed orders. Otherwise she can hold coumadin as directed- usually 5 days prior to surgery and resumed 1 day after surgery. ThanksTobi PA-C * Telephone Encounter - Briana Segura LPN - 02/10/2023 1:09 PM EDT Pt called and she missed her INR apt with the coumadine clinic yesterday. Pt is scheduled for a colonoscopy with Dr. Abimael Evans ant the [facility] on 02-14-23. Pt has been instructed to not take her coumadin starting tonight thru 02-14-23. Pt asking what you would like her to do. Does she need to come into day to get an INR done at the lab? Please advise pt. Briana Segura LPN documented in this encounterUniversity Hospitals Ahuja [facility] Center08-25-2023 History of Present illness Narrative* Christopher Bonilla MD - 01/27/2023 1:27 PM EDT agree * Yanely Posadas RN - 01/27/2023 1:18 PM EDT patient had inr completed at [facility] patients inr is 3.0 (patients inr [...] dose change documented in this encounterUniversity Hospitals Ahuja Medical Center08-25-2023 Miscellaneous Notes* Telephone Encounter - Myah Dunn RN - 01/27/2023 11:09 AM EDT [...] Protocols used: Shingles (Zoster)-ADULT-AH documented in this encounterUniversity Hospitals Ahuja Medical Center08-21-2023 Miscellaneous Notes* Telephone Encounter - Jolie Mobley OCCA - 01/23/2023 11:04 AM EDT TC to patient who verbalized understanding and has no questions at this time. HEIDI Fajardo * Telephone Encounter - Christopher Bonilla MD - 01/23/2023 10:47 AM EDT Let her know her repeat labs are ok. documented in this encounterUniversity Hospitals Ahuja Medical Center08-18-2023 History of Present illness Narrative* Yanely Posadas RN - 01/20/2023 4:22 PM EDT PATIENT NOTIFIED OF INFORMATION * Christopher Bonilla MD - 01/20/2023 2:23 PM EDT agree * Yanely Posadas RN - 01/20/2023 1:39 PM EDT patient had inr completed at [facility] patients inr is 3.3 (patients inr [...] on recommendation documented in this encounterUniversity Hospitals Ahuja Medical Center08-15-2023 Miscellaneous Notes* Telephone Encounter - [...] Holbrook LPN documented in this encounterUniversity Hospitals Ahuja Medical Center08-14-2023 History of Present illness Narrative* Jolene Osuna RN - 01/16/2023 10:38 AM EDT M Telephonic Outreach Provider Too/CAROLYN Breaking out on arm and upper back - [facility] diagnosed shingles. She is currently taking medication valacyclovir. She will continue to monitor and call if symptoms are same or worsening over thenext couple days. At this time she feels symptoms are the same. Patient had EGD at [place] set up from 02/14. Contacted for: Routine [...] more often than normal? No Based on fashion artist, the following disposition is advised: No symptoms or symptoms present, not severe. Routed to: No Action Needed FAVIOLA Education Provided this Outreach: No Jolene Osuna RN January 16, 2023 10:53 AM documented in this encounterUniversity Hospitals Ahuja Medical Center08-12-2023 Miscellaneous Notes* Telephone Encounter - [...] Chiu APRN.CNP documented in this encounterUniversity Hospitals Ahuja Medical Center08-11-2023 History of Present illness Narrative* Shanta Logan APRN.CNP - 01/13/2023 7:07 PM EDT Images from [...] history is provided by the patient. No language asst was used. Rash Review of Systems Constitutional: Negative. Skin: Positive for rash. Objective Physical Exam Constitutional: Appearance: Normal appearance. Pulmonary: Effort: Pulmonary effort is normal. Skin: Neurological: Mental Status: She is alert. PAST MEDICAL HISTORY Diagnosis Date A-fib ([facility]) Class 1 congestive heart failure, unspecified failure chronicity, systolic ([facility]) 11/21/2019 Dysphagia, unspecified(787.20) Esophageal reflux Esophagitis, unspecified Marfan's syndrome Moderate mitral regurgitation 06/18/2021 04/27/21 Echo at [facility]. Pleural effusion, right 05/05/2020 CXR [...] FORTICAL) 200 unit/actuation nasal spray Use 1 [place] in the nose once daily. Back Brace [...] better. Shanta Logan APRN.TRICIA documented in this encounterUniversity Hospitals Ahuja Medical Center08-11-2023 Miscellaneous Notes* Telephone Encounter - [...] Pt agreeable. documented in this encounterUniversity Hospitals Ahuja Medical Center08-02-2023 Miscellaneous Notes* Telephone Encounter - Deana Coleman RN - 01/04/2023 9:43 AM EDT Pharmacist from [facility] calling and requesting refills on medication. Called and spoke with patient, patient switched to [facility] pharmacy and does need refills. Last Office Visit: 11/08/2022 Future Office Visit: 05/10/2023 Requested Prescriptions Pending Prescriptions Disp Refills omeprazole (PRILOSEC) 40 mg capsule 90 capsule 3 Sig: Take 1 capsule by mouth once daily. Date of Last Labs: 12/23/2022 documented in this encounterUniversity Hospitals Ahuja Medical Center07-06-2023 History of Present illness Narrative* Christopher Bonilla MD - 12/08/2022 2:58 PM EDT agree * Yanely Posadas RN - 12/08/2022 2:44 PM EDT patient had inr completed at [facility] patients inr is 2.7 (patients inr [...] dose change documented in this encounterUniversity Hospitals Ahuja Medical Center06-30-2023 History of Present illness Narrative* Rachelle Villa Ma - 12/02/2022 3:08 PM EDT Patient was notified and verbalized understanding Tracker updated Rachelle Villa Ma * Christopher Bonilla MD - 12/02/2022 2:14 PM EDT Hold today, then change to 2 mg a day, except 4 mg on Mon, , TH. Recheck one week * Rachelle Villa Ma - 12/02/2022 2:06 PM EDT patient had inr completed at [facility] patients inr is 3.4 (patients inr range is 2.0-3.0) patient is currently taking 2mg Mon,Wed,Fri and 4mg all other days patients last dose change was on 11/08/22 due to a low level of 1.5 (dose at that time was 4mg ,,Mon and 2mg all other days) patient has [...] on 12/08/22 documented in this encounterUniversity Hospitals Ahuja Medical Center06-22-2023 History of Present illness Narrative* Elisabeth Bettencourt Ma - 11/24/2022 3:04 PM EDT Detailed message left on pt machine. Elisabeth Bettencourt Ma * Eddie Nunez MD - 11/24/2022 3:02 PM EDT INR slightly high on current dosage. No change. Recheck in 1 week. * Yanely Posadas RN - 11/24/2022 2:30 PM EDT patient had inr completed at [facility] patients inr is 3.2 (patients inr range is 2.0-3.0) patient is currently taking 2mg Mon,Wed,Fri and 4mg all other days patients last dose change was on 11/08/22 due to a low level of 1.5 (dose at that time was 4mg ,Th Sat and 2mg all other days) patient [...] on 12/02/22 documented in this encounterUniversity Hospitals Ahuja Medical Center06-06-2023 History of Present illness Narrative* Christopher Bonilla MD - 11/08/2022 3:57 PM EDT Instructed to increase to 4 mg , , Mon, Monday, 2 mg a day rest of the week. Recheck one week. Patient notified in office. * Yanely Posadas RN - 11/08/2022 3:25 PM EDT patient had inr completed at [facility] patients inr is 1.5 (patients inr range [...] on 11/22/22 documented in this encounterUniversity Hospitals Ahuja Medical Center06-06-2023 History of Present illness Narrative* Christopher Bonilla MD - 11/08/2022 3:40 PM EDT Patient presents with: Abdominal Pain: Follow up HPI: Patient presents today for office visit for follow up of epigastric pain. Still has complaintsof intermittent bloating of stomach and hearing strange [...] thyroid, Dr. Mariee for her lungs and [facility] for her heart. Bone scan done. [...] Abs Lymph 1.00 - 4.00 k/uL 1.82 [place]% % 14.5 Abs [place] <0.87 k/uL 1.44 (H) Eosin% % 1.4 [...] Negative Ketones, Urine Trace, Negative Negative Specific [place], Ur 1.005 - 1.030 1.014 Hemoglobin/Blood,Ur Negative, [...] FORTICAL) 200 unit/actuation nasal spray Use 1 [place] in the nose once daily. Back Brace [...] Moderate mitral regurgitation 06/18/2021 04/27/21 Echo at [facility]. Pleural effusion, right 05/05/2020 CXR [...] Pulse (!) 57 Ht 154.9 cm (5' 1) Wt 60.3 kg (133 lb) SpO2 95% [...] Bonilla MD documented in this encounterUniversity Hospitals Ahuja Medical Center05-18-2023 History of Present illness Narrative* [...] radiation safety can be found usingthis link: [email or web address] SIGNATURE: RT Kia(R) PATIENT NAME: Libra Ceja DATE: October 20, 2022 TIME: 12:45 PM PAGER/CONTACT #: documented in this encounterUniversity Hospitals Ahuja Medical Center05-11-2023 History of Present illness Narrative* [...] PM EDT patient had inr completed at [facility] patients inr is 1.6 (patients inr [...] on 10/27/22 documented in this encounterUniversity Hospitals Ahuja Medical Center05-03-2023 Miscellaneous Notes* Telephone Encounter - Bhavya Arenas LPN - 10/05/2022 1:31 PM EDT PATIENT NOTIFIED OF SAME. Patient to call back to scheduled as she states I'm not ready to complete this at this time. * Telephone Encounter - Myah Mehta PA-C - 10/05/2022 10:10 AM EDT Please let her know it was the bone fraction, not liver, that was elevated in alk phos. Because it is increasing, I would recommend bone scan. Telephone on 10/05/22 NM BONE WHOLE BODY Thanks, Tobi Mehta PA-C documented in this encounterUniversity Hospitals Ahuja Medical Center04-27-2023 History of Present illness Narrative* Christopher Bonilla MD - 09/29/2022 3:08 PM EDT agree * Yanely Posadas RN - 09/29/2022 2:04 PM EDT patient had inr completed at [facility] patients inr is 2.4 (patients inr [...] dose change documented in this encounterUniversity Hospitals Ahuja Medical Center04-25-2023 Miscellaneous Notes* Telephone Encounter - Yanely Posadas RN - 09/27/2022 11:40 AM EDT patient has been rescheduled to Monday * Telephone Encounter - Alma Delia Doyle RN - 09/27/2022 11:13 AM EDT Patient calling and states she has an appointment at the [facility] today at 1:15pm tohave her INR checked. [...] Thank you. documented in this encounterUniversity Hospitals Ahuja Medical Center04-21-2023 History of Present illness Narrative* Concha Rocha RN - 09/23/2022 11:10 AM EDT [facility] Telephonic Outreach Provider Action/FYI Made call #2. NA/ Left Vm Contacted for: Routine Telephonic Outreach Contact made with patient: No, left message. Concha Rocha RN September 23, 2022 11:11 AM * Concha Rocha RN - 09/22/2022 4:04 PM EDT [facility] Telephonic Outreach Provider Action/CHILANGOI Made call #1 to pt. NA/Left Vm. Contacted for: Routine Telephonic Outreach Contact made with patient: No, left message. Concha Rocha RN September 22, 2022 4:05 PM documented in this encounterUniversity Hospitals Ahuja Medical Center04-20-2023 Miscellaneous Notes* Telephone Encounter - Luz Dupree MA - 09/22/2022 1:35 PM EDT Patient notified & this ADARSH repeated d/t renal status only to be taking BID. Patient verbalized understanding of instructions. Luz Dupree MA The following approved medication requests have been transmitted electronically. Requested Prescriptions Signed Prescriptions Disp Refills gabapentin (NEURONTIN) 100 mg capsule 180 capsule 1 Sig: Take 1 capsule by mouth twice daily for 180 days. Authorizing Provider: Myah MEHTA MA * Telephone Encounter - Myah Mehta PA-C - 09/22/2022 12:04 PM EDT She can only do twice a day r/t renal status. The following approved medication requests have been transmitted electronically. Requested Prescriptions Signed Prescriptions Disp Refills gabapentin (NEURONTIN) 100 mg capsule 180 capsule 1 Sig: Take 1 capsule by mouth twice daily for 180 days. Authorizing Provider: Myah MEHTA PA-C * Telephone Encounter - Cadence Bustillo LPN - 09/22/2022 11:03 AM EDT Patient states that Tobi told her she could increase to 2-3 tablets per day. Has taken 2 some days and now needs refill. Please send to pharmacy for her with new instructions. documented in this encounterUniversity Hospitals Ahuja Medical Center04-20-2023 Miscellaneous Notes* Telephone Encounter - Cadence Bustillo LPN - 09/22/2022 11:03 AM EDT Patient notified. * Telephone Encounter - Cadence Bustillo LPN - 09/22/2022 11:02 AM EDT ----- Message from Myah Mehta PA-C sent at 2022 9:32 PM EDT ----- Please let her know the XR shows normal gas pattern, no obstruction. Thanks, Tobi Mehta PA-C documented in this encounterUniversity Hospitals Ahuja Medical Center04-20-2023 Miscellaneous Notes* Telephone Encounter - Cadence Bustillo LPN - 09/22/2022 11:01 AM EDT Patient notified and verbalizes understanding. * Telephone Encounter - Myah Mehta PA-C - 2022 9:36 PM EDT Please let her know lab results look okay except she is mildly dehydrated probably from lasix. Needs to push fluids a little. Alk phos is elevated but other liver enzymes are normal Please have lab run iso's. Telephone on 09/21/22 ALK PHOS ISOENZYM BL ThanksTobi PA-C documented in this encounterUniversity Hospitals Ahuja Medical Center04-17-2023 History of Present illness Narrative* Marjan Garces RT(R) - 09/19/2022 2:50 PM EDT Radiology [...] 3:04 PM documented in this encounterUniversity Hospitals Ahuja Medical Center04-17-2023 History of Present illness Narrative* Myah Mehta PA-C - 09/19/2022 2:20 PM EDT 76 year old female with c/o f/u back pain 08/29/2022 started on gabapentin 100mg daily HS has helped some. Taking Tylenol 500mg 2 tabs once a day 08/18/2022 MRI thoracic spine: Imaging findings suggesting acute or subacute compression deformities involving the T8, T9, and [id number] bodies with up to 10%, 50%, and [...] Lymph 1.00 - 4.00 k/uL 1.72 1.88 [place]% % 15.3 14.3 Abs [place] <0.87 k/uL 1.09 (H) 1.28 (H) Eosin% [...] Emphysema PAST MEDICAL HISTORY Diagnosis Date A-fib ([facility]) Class 1 congestive heart failure, unspecified failure chronicity, systolic ([facility]) 11/21/2019 Dysphagia, unspecified(787.20) Esophageal reflux Esophagitis, unspecified Marfan's syndrome Moderate mitral regurgitation 06/18/2021 04/27/21 Echo at [facility]. Pleural effusion, right 05/05/2020 CXR [...] ABDOMINAL HYSTERECT W/WO RMVL TUBE OVARY Hysterectomy, [facility] Social History Tobacco Use Smoking status: Never [...] FORTICAL) 200 unit/actuation nasal spray Use 1 [place] in the nose once daily. 6 mL [...] Pulse (!) 54 Ht 154.9 cm (5' 1) Wt 60.3 kg (133 lb) SpO2 96% [...] CAPSULE Myah Mehta PA-C documented in this encounterUniversity Hospitals Ahuja Medical Center04-17-2023 History of Past illness Narrative* [...] care 07/20/2021 07/26/2022 Overview: Facility: [facility] Date of admission 07/14/2021 Date of discharge Prehospital work-up: Presented to 07/14/2021 to [facility] ED complaining of left-sided abdominal pain with multiple symptoms including cough, myalgias, nasal congestion, low dietary intake due to concerns that would aggravate stomach ache. Patient was exposed to Covid 2 weeks prior, unvaccinated. Vital signs: 98.3 [id number]/102-93% RA. Exam description: Tired, alert and nontoxic, [...] he could be done outpatient. 07/15/[address] Dwayne Garcia: Assessment right pleural effusion: Continue diuretic therapy, empiric antimicrobials, thoracentesis recommended, eventual right heart cath work and secondary work-up for pH outpatient basis. 07/15/2021 echocardiogram: LV size and LV SF WNL, EF 60 to 65%. RV normal size and RV SF EF. Left atrium moderately enlarged, right atrium mildly enlarged. MV: Moderate mitral annular calcification, 1-2+ ME. TV: Normal. AV: Diffuse aortic valve calcification. [...] encounter (statuses as of 11/09/2022) [facility]04-17-2023 History of Past illness Narrative* [...] kidney 07/22/2021 11/08/2022 Overview: Has seen Dr Nikunj Aranda 07/22/2021 11/08/2022 Encounter for support and coordination of transi tion of care 07/20/2021 07/26/2022 Overview: Facility: [facility] Date of admission 07/14/2021 Date of discharge Prehospital work-up: Presented to 07/14/2021 to [facility] ED complaining of left-sided abdominal pain with multiple symptoms including cough, myalgias, nasal congestion, low dietary intake due to concerns that would aggravate stomach ache. Patient was exposed to Covid 2 weeks prior, unvaccinated. Vital signs: 98.3 [id number]/102-93% RA. Exam description: Tired, alert and nontoxic, [...] he could be done outpatient. 07/15/[address] Dwayne Garcia: Assessment right pleural effusion: Continue diuretic therapy, empiric antimicrobials, thoracentesis recommended, eventual right heart cath work and secondary work-up for pH outpatient basis. 07/15/2021 echocardiogram: LV size and LV SF WNL, EF 60 to 65%. RV normal size and RV SF EF. Left atrium moderately enlarged, right atrium mildly enlarged. MV: Moderate mitral annular calcification, 1-2+ ME. TV: Normal. AV: Diffuse aortic valve calcification. [...] encounter (statuses as of 11/09/2022) [facility]04-17-[facility] History of Past illness Narrative* [...] care 07/20/2021 07/26/2022 Overview: Facility: [facility] Date of admission 07/14/2021 Date of discharge Prehospital work-up: Presented to 07/14/2021 to [facility] ED complaining of left-sided abdominal pain with multiple symptoms including cough, myalgias, nasal congestion, low dietary intake due to concerns that would aggravate stomach ache. Patient was exposed to Covid 2 weeks prior, unvaccinated. Vital signs: 98.3 [id number]/102-93% RA. Exam description: Tired, alert and nontoxic, [...] he could be done outpatient. 07/15/[address] Dwayne Garcia: Assessment right pleural effusion: Continue diuretic therapy, empiric antimicrobials, thoracentesis recommended, eventual right heart cath work and secondary work-up for pH outpatient basis. 07/15/2021 echocardiogram: LV size and LV SF WNL, EF 60 to 65%. RV normal size and RV SF EF. Left atrium moderately enlarged, right atrium mildly enlarged. MV: Moderate mitral annular calcification, 1-2+ ME. TV: Normal. AV: Diffuse aortic valve calcification. [...] encounter (statuses as of 11/25/2022) [facility]04-[facility] History of Past illness Narrative* [...] kidney 07/22/2021 11/08/2022 Overview: Has seen Dr Nikunj Aranda 07/22/2021 11/08/2022 Encounter for support and coordination of transi tion of care 07/20/2021 07/26/2022 Overview: Facility: [facility] Date of admission 07/14/2021 Date of discharge Prehospital work-up: Presented to 07/14/2021 to [facility] ED complaining of left-sided abdominal pain with multiple symptoms including cough, myalgias, nasal congestion, low dietary intake due to concerns that would aggravate stomach ache. Patient was exposed to Covid 2 weeks prior, unvaccinated. Vital signs: 98.3 [id number]/102-93% RA. Exam description: Tired, alert and nontoxic, [...] he could be done outpatient. 07/15/[address] Dwayne Garcia: Assessment right pleural effusion: Continue diuretic therapy, empiric antimicrobials, thoracentesis recommended, eventual right heart cath work and secondary work-up for pH outpatient basis. 07/15/2021 echocardiogram: LV size and LV SF WNL, EF 60 to 65%. RV normal size and RV SF EF. Left atrium moderately enlarged, right atrium mildly enlarged. MV: Moderate mitral annular calcification, 1-2+ ME. TV: Normal. AV: Diffuse aortic valve calcification. [...] encounter (statuses as of 12/02/2022) [facility] History of Past illness Narrative* [...] care 07/20/2021 07/26/2022 Overview: Facility: [facility] Date of admission 07/14/2021 Date of discharge Prehospital work-up: Presented to 07/14/2021 to [facility] ED complaining of left-sided abdominal pain with multiple symptoms including cough, myalgias, nasal congestion, low dietary intake due to concerns that would aggravate stomach ache. Patient was exposed to Covid 2 weeks prior, unvaccinated. Vital signs: 98.3 [id number]/102-93% RA. Exam description: Tired, alert and nontoxic, [...] he could be done outpatient. 07/15/[address] Dwayne Garcia: Assessment right pleural effusion: Continue diuretic therapy, empiric antimicrobials, thoracentesis recommended, eventual right heart cath work and secondary work-up for pH outpatient basis. 07/15/2021 echocardiogram: LV size and LV SF WNL, EF 60 to 65%. RV normal size and RV SF EF. Left atrium moderately enlarged, right atrium mildly enlarged. MV: Moderate mitral annular calcification, 1-2+ ME. TV: Normal. AV: Diffuse aortic valve calcification. [...] encounter (statuses as of 12/09/2022) [facility] History of Past illness Narrative* [...] 09/16/2021 11/09/19 23 Acute respiratory failure 07/22/2021 06 /11/2022 Chronic passive congestion of liver 07/22/2021 11/08/2022 Cyst of kidney, acquired 07/22/202111/2022 Ischemia and infarction of kidney 07/22/2021 11/08/2022 Overview: Has seen Dr Calvin Leukocytosis 07/22/2021 11/08/2022 Encounter for support and co ordination of transition of care 07/20/2021 07/26/2022 Overview: Facility: [facility] Date of admission 07/14/2021 Date of discharge Prehospital work-up: Presented to 07/14/2021 to [facility] ED complaining of left-sided abdominal pain with multiple symptoms including cough, myalgias, nasal congestion, low dietary intake due to concerns that would aggravate stomach ache. Patient was exposed to Covid 2 weeks prior, unvaccinated. Vital signs: 98.3 [id number]/102-93% RA. Exam description: Tired, alert and nontoxic, [...] he could be done outpatient. 07/15/[address] Dwayne Garcia: Assessment right pleural effusion: Continue diuretic therapy, empiric antimicrobials, thoracentesis recommended, eventual right heart cath work and secondary work-up for pH outpatient basis. 07/15/2021 echocardiogram: LV size and LV SF WNL, EF 60 to 65%. RV normal size and RV SF EF. Left atrium moderately enlarged, right atrium mildly enlarged. MV: Moderate mitral annular calcification, 1-2+ ME. TV: Normal. AV: Diffuse aortic valve calcification. [...] encounter (statuses as of 01/04/2023) [facility] History of Past illness Narrative* [...] care 07/20/2021 07/26/2022 Overview: Facility: [facility] Date of admission 07/14/2021 Date of discharge Prehospital work-up: Presented to 07/14/2021 to [facility] ED complaining of left-sided abdominal pain with multiple symptoms including cough, myalgias, nasal congestion, low dietary intake due to concerns that would aggravate stomach ache. Patient was exposed to Covid 2 weeks prior, unvaccinated. Vital signs: 98.3 [id number]/102-93% RA. Exam description: Tired, alert and nontoxic, [...] he could be done outpatient. 07/15/[address] Dwayne Garcia: Assessment right pleural effusion: Continue diuretic therapy, empiric antimicrobials, thoracentesis recommended, eventual right heart cath work and secondary work-up for pH outpatient basis. 07/15/2021 echocardiogram: LV size and LV SF WNL, EF 60 to 65%. RV normal size and RV SF EF. Left atrium moderately enlarged, right atrium mildly enlarged. MV: Moderate mitral annular calcification, 1-2+ ME. TV: Normal. AV: Diffuse aortic valve calcification. [...] encounter (statuses as of 01/14/2023) [facility]04-17-2023 History of Past illness Narrative* [...] breath 09/16/2021 11/09/19 Acute respiratory failure 07/22/2021 06 /11/2022 Chronic passive congestion of liver 07/22/2021 11/08/2022 Cyst of kidney, acquired 07/22/202111/2022 Ischemia and infarction of kidney 07/22/2021 11/08/2022 Overview: Has seen Dr Calvin Leukocytosis 07/22/2021 11/08/2022 Encounter for support and co ordination of transition of care 07/20/2021 07/26/2022 Overview: Facility: [facility] Date of admission 07/14/2021 Date of discharge Prehospital work-up: Presented to 07/14/2021 to [facility] ED complaining of left-sided abdominal pain with multiple symptoms including cough, myalgias, nasal congestion, low dietary intake due to concerns that would aggravate stomach ache. Patient was exposed to Covid 2 weeks prior, unvaccinated. Vital signs: 98.3 [id number]/102-93% RA. Exam description: Tired, alert and nontoxic, [...] he could be done outpatient. 07/15/[address] Dwayne Garcia: Assessment right pleural effusion: Continue diuretic therapy, empiric antimicrobials, thoracentesis recommended, eventual right heart cath work and secondary work-up for pH outpatient basis. 07/15/2021 echocardiogram: LV size and LV SF WNL, EF 60 to 65%. RV normal size and RV SF EF. Left atrium moderately enlarged, right atrium mildly enlarged. MV: Moderate mitral annular calcification, 1-2+ ME. TV: Normal. AV: Diffuse aortic valve calcification. [...] encounter (statuses as of 01/14/2023) [facility]04-17-2023 History of Past illness Narrative* [...] care 07/20/2021 07/26/2022 Overview: Facility: [facility] Date of admission 07/14/2021 Date of discharge Prehospital work-up: Presented to 07/14/2021 to [facility] ED complaining of left-sided abdominal pain with multiple symptoms including cough, myalgias, nasal congestion, low dietary intake due to concerns that would aggravate stomach ache. Patient was exposed to Covid 2 weeks prior, unvaccinated. Vital signs: 98.3 [id number]/102-93% RA. Exam description: Tired, alert and nontoxic, [...] he could be done outpatient. 07/15/[address] Dwayne Garcia: Assessment right pleural effusion: Continue diuretic therapy, empiric antimicrobials, thoracentesis recommended, eventual right heart cath work and secondary work-up for pH outpatient basis. 07/15/2021 echocardiogram: LV size and LV SF WNL, EF 60 to 65%. RV normal size and RV SF EF. Left atrium moderately enlarged, right atrium mildly enlarged. MV: Moderate mitral annular calcification, 1-2+ ME. TV: Normal. AV: Diffuse aortic valve calcification. [...] encounter (statuses as of 01/14/2023) [facility]04-17-2023 History of Past illness Narrative* [...] breath 09/16/2021 11/09/19 Acute respiratory failure 07/22/2021 06 /11/2022 Chronic passive congestion of liver 07/22/2021 11/08/2022 Cyst of kidney, acquired 07/22/202111/2022 Ischemia and infarction of kidney 07/22/2021 11/08/2022 Overview: Has seen Dr Calvin Leukocytosis 07/22/2021 11/08/2022 Encounter for support and co ordination of transition of care 07/20/2021 07/26/2022 Overview: Facility: [facility] Date of admission 07/14/2021 Date of discharge Prehospital work-up: Presented to 07/14/2021 to [facility] ED complaining of left-sided abdominal pain with multiple symptoms including cough, myalgias, nasal congestion, low dietary intake due to concerns that would aggravate stomach ache. Patient was exposed to Covid 2 weeks prior, unvaccinated. Vital signs: 98.3 [id number]/102-93% RA. Exam description: Tired, alert and nontoxic, [...] he could be done outpatient. 07/15/[address] Dwayne Garcia: Assessment right pleural effusion: Continue diuretic therapy, empiric antimicrobials, thoracentesis recommended, eventual right heart cath work and secondary work-up for pH outpatient basis. 07/15/2021 echocardiogram: LV size and LV SF WNL, EF 60 to 65%. RV normal size and RV SF EF. Left atrium moderately enlarged, right atrium mildly enlarged. MV: Moderate mitral annular calcification, 1-2+ ME. TV: Normal. AV: Diffuse aortic valve calcification. [...] encounter (statuses as of 01/16/2023) [facility]04-17-2023 History of Past illness Narrative* [...] care 07/20/2021 07/26/2022 Overview: Facility: [facility] Date of admission 07/14/2021 Date of discharge Prehospital work-up: Presented to 07/14/2021 to [facility] ED complaining of left-sided abdominal pain with multiple symptoms including cough, myalgias, nasal congestion, low dietary intake due to concerns that would aggravate stomach ache. Patient was exposed to Covid 2 weeks prior, unvaccinated. Vital signs: 98.3 [id number]/102-93% RA. Exam description: Tired, alert and nontoxic, [...] he could be done outpatient. 07/15/[address] Dwayne Garcia: Assessment right pleural effusion: Continue diuretic therapy, empiric antimicrobials, thoracentesis recommended, eventual right heart cath work and secondary work-up for pH outpatient basis. 07/15/2021 echocardiogram: LV size and LV SF WNL, EF 60 to 65%. RV normal size and RV SF EF. Left atrium moderately enlarged, right atrium mildly enlarged. MV: Moderate mitral annular calcification, 1-2+ ME. TV: Normal. AV: Diffuse aortic valve calcification. [...] encounter (statuses as of 01/18/2023) [facility]04-17-2023 History of Past illness Narrative* [...] breath 09/16/2021 11/09/19 Acute respiratory failure 07/22/2021 06 /11/2022 Chronic passive congestion of liver 07/22/2021 11/08/2022 Cyst of kidney, acquired 07/22/202111/2022 Ischemia and infarction of kidney 07/22/2021 11/08/2022 Overview: Has seen Dr Calvin Leukocytosis 07/22/2021 11/08/2022 Encounter for support and co ordination of transition of care 07/20/2021 07/26/2022 Overview: Facility: [facility] Date of admission 07/14/2021 Date of discharge Prehospital work-up: Presented to 07/14/2021 to [facility] ED complaining of left-sided abdominal pain with multiple symptoms including cough, myalgias, nasal congestion, low dietary intake due to concerns that would aggravate stomach ache. Patient was exposed to Covid 2 weeks prior, unvaccinated. Vital signs: 98.3 [id number]/102-93% RA. Exam description: Tired, alert and nontoxic, [...] he could be done outpatient. 07/15/[address] Dwayne Garcia: Assessment right pleural effusion: Continue diuretic therapy, empiric antimicrobials, thoracentesis recommended, eventual right heart cath work and secondary work-up for pH outpatient basis. 07/15/2021 echocardiogram: LV size and LV SF WNL, EF 60 to 65%. RV normal size and RV SF EF. Left atrium moderately enlarged, right atrium mildly enlarged. MV: Moderate mitral annular calcification, 1-2+ ME. TV: Normal. AV: Diffuse aortic valve calcification. [...] encounter (statuses as of 01/20/2023) [facility]04-17-2023 History of Past illness Narrative* [...] care 07/20/2021 07/26/2022 Overview: Facility: [facility] Date of admission 07/14/2021 Date of discharge Prehospital work-up: Presented to 07/14/2021 to [facility] ED complaining of left-sided abdominal pain with multiple symptoms including cough, myalgias, nasal congestion, low dietary intake due to concerns that would aggravate stomach ache. Patient was exposed to Covid 2 weeks prior, unvaccinated. Vital signs: 98.3 [id number]/102-93% RA. Exam description: Tired, alert and nontoxic, [...] he could be done outpatient. 07/15/[address] Dwayne Garcia: Assessment right pleural effusion: Continue diuretic therapy, empiric antimicrobials, thoracentesis recommended, eventual right heart cath work and secondary work-up for pH outpatient basis. 07/15/2021 echocardiogram: LV size and LV SF WNL, EF 60 to 65%. RV normal size and RV SF EF. Left atrium moderately enlarged, right atrium mildly enlarged. MV: Moderate mitral annular calcification, 1-2+ ME. TV: Normal. AV: Diffuse aortic valve calcification. [...] encounter (statuses as of 01/23/2023) [facility]04-17-2023 History of Past illness Narrative* [...] breath 09/16/2021 11/09/19 Acute respiratory failure 07/22/2021 06 /11/2022 Chronic passive congestion of liver 07/22/2021 11/08/2022 Cyst of kidney, acquired 07/22/202111/2022 Ischemia and infarction of kidney 07/22/2021 11/08/2022 Overview: Has seen Dr Calvin Leukocytosis 07/22/2021 11/08/2022 Encounter for support and co ordination of transition of care 07/20/2021 07/26/2022 Overview: Facility: [facility] Date of admission 07/14/2021 Date of discharge Prehospital work-up: Presented to 07/14/2021 to [facility] ED complaining of left-sided abdominal pain with multiple symptoms including cough, myalgias, nasal congestion, low dietary intake due to concerns that would aggravate stomach ache. Patient was exposed to Covid 2 weeks prior, unvaccinated. Vital signs: 98.3 [id number]/102-93% RA. Exam description: Tired, alert and nontoxic, [...] he could be done outpatient. 07/15/[address] Dwayne Garcia: Assessment right pleural effusion: Continue diuretic therapy, empiric antimicrobials, thoracentesis recommended, eventual right heart cath work and secondary work-up for pH outpatient basis. 07/15/2021 echocardiogram: LV size and LV SF WNL, EF 60 to 65%. RV normal size and RV SF EF. Left atrium moderately enlarged, right atrium mildly enlarged. MV: Moderate mitral annular calcification, 1-2+ ME. TV: Normal. AV: Diffuse aortic valve calcification. [...] encounter (statuses as of 01/27/2023) [facility]04-17-2023 History of Past illness Narrative* [...] care 07/20/2021 07/26/2022 Overview: Facility: [facility] Date of admission 07/14/2021 Date of discharge Prehospital work-up: Presented to 07/14/2021 to [facility] ED complaining of left-sided abdominal pain with multiple symptoms including cough, myalgias, nasal congestion, low dietary intake due to concerns that would aggravate stomach ache. Patient was exposed to Covid 2 weeks prior, unvaccinated. Vital signs: 98.3 [id number]/102-93% RA. Exam description: Tired, alert and nontoxic, [...] he could be done outpatient. 07/15/[address] Dwayne Gacria: Assessment right pleural effusion: Continue diuretic therapy, empiric antimicrobials, thoracentesis recommended, eventual right heart cath work and secondary work-up for pH outpatient basis. 07/15/2021 echocardiogram: LV size and LV SF WNL, EF 60 to 65%. RV normal size and RV SF EF. Left atrium moderately enlarged, right atrium mildly enlarged. MV: Moderate mitral annular calcification, 1-2+ ME. TV: Normal. AV: Diffuse aortic valve calcification. [...] encounter (statuses as of 01/27/2023) [facility]04-17-2023 History of Past illness Narrative* [...] breath 09/16/2021 11/09/19 Acute respiratory failure 07/22/2021 06 /11/2022 Chronic passive congestion of liver 07/22/2021 11/08/2022 Cyst of kidney, acquired 07/22/202111/2022 Ischemia and infarction of kidney 07/22/2021 11/08/2022 Overview: Has seen Dr Calvin Leukocytosis 07/22/2021 11/08/2022 Encounter for support and co ordination of transition of care 07/20/2021 07/26/2022 Overview: Facility: [facility] Date of admission 07/14/2021 Date of discharge Prehospital work-up: Presented to 07/14/2021 to [facility] ED complaining of left-sided abdominal pain with multiple symptoms including cough, myalgias, nasal congestion, low dietary intake due to concerns that would aggravate stomach ache. Patient was exposed to Covid 2 weeks prior, unvaccinated. Vital signs: 98.3 [id number]/102-93% RA. Exam description: Tired, alert and nontoxic, [...] he could be done outpatient. 07/15/[address] Dwayne Garcia: Assessment right pleural effusion: Continue diuretic therapy, empiric antimicrobials, thoracentesis recommended, eventual right heart cath work and secondary work-up for pH outpatient basis. 07/15/2021 echocardiogram: LV size and LV SF WNL, EF 60 to 65%. RV normal size and RV SF EF. Left atrium moderately enlarged, right atrium mildly enlarged. MV: Moderate mitral annular calcification, 1-2+ ME. TV: Normal. AV: Diffuse aortic valve calcification. [...] encounter (statuses as of 02/10/2023) [facility]04-17-2023 History of Past illness Narrative* [...] care 07/20/2021 07/26/2022 Overview: Facility: [facility] Date of admission 07/14/2021 Date of discharge Prehospital work-up: Presented to 07/14/2021 to [facility] ED complaining of left-sided abdominal pain with multiple symptoms including cough, myalgias, nasal congestion, low dietary intake due to concerns that would aggravate stomach ache. Patient was exposed to Covid 2 weeks prior, unvaccinated. Vital signs: 98.3 [id number]/102-93% RA. Exam description: Tired, alert and nontoxic, [...] he could be done outpatient. 07/15/[address] Dwayne Garcia: Assessment right pleural effusion: Continue diuretic therapy, empiric antimicrobials, thoracentesis recommended, eventual right heart cath work and secondary work-up for pH outpatient basis. 07/15/2021 echocardiogram: LV size and LV SF WNL, EF 60 to 65%. RV normal size and RV SF EF. Left atrium moderately enlarged, right atrium mildly enlarged. MV: Moderate mitral annular calcification, 1-2+ ME. TV: Normal. AV: Diffuse aortic valve calcification. [...] encounter (statuses as of 02/16/2023) [facility]04-17-2023 History of Past illness Narrative* [...] breath 09/16/2021 11/09/19 Acute respiratory failure 07/22/2021 06 /11/2022 Chronic passive congestion of liver 07/22/2021 11/08/2022 Cyst of kidney, acquired 07/22/202111/2022 Ischemia and infarction of kidney 07/22/2021 11/08/2022 Overview: Has seen Dr Calvin Leukocytosis 07/22/2021 11/08/2022 Encounter for support and co ordination of transition of care 07/20/2021 07/26/2022 Overview: Facility: [facility] Date of admission 07/14/2021 Date of discharge Prehospital work-up: Presented to 07/14/2021 to [facility] ED complaining of left-sided abdominal pain with multiple symptoms including cough, myalgias, nasal congestion, low dietary intake due to concerns that would aggravate stomach ache. Patient was exposed to Covid 2 weeks prior, unvaccinated. Vital signs: 98.3 [id number]/102-93% RA. Exam description: Tired, alert and nontoxic, [...] he could be done outpatient. 07/15/[address] Dwayne Garcia: Assessment right pleural effusion: Continue diuretic therapy, empiric antimicrobials, thoracentesis recommended, eventual right heart cath work and secondary work-up for pH outpatient basis. 07/15/2021 echocardiogram: LV size and LV SF WNL, EF 60 to 65%. RV normal size and RV SF EF. Left atrium moderately enlarged, right atrium mildly enlarged. MV: Moderate mitral annular calcification, 1-2+ ME. TV: Normal. AV: Diffuse aortic valve calcification. [...] encounter (statuses as of 02/17/2023) [facility]04-17-2023 History of Past illness Narrative* [...] care 07/20/2021 07/26/2022 Overview: Facility: [facility] Date of admission 07/14/2021 Date of discharge Prehospital work-up: Presented to 07/14/2021 to [facility] ED complaining of left-sided abdominal pain with multiple symptoms including cough, myalgias, nasal congestion, low dietary intake due to concerns that would aggravate stomach ache. Patient was exposed to Covid 2 weeks prior, unvaccinated. Vital signs: 98.3 [id number]/102-93% RA. Exam description: Tired, alert and nontoxic, [...] he could be done outpatient. 07/15/[address] Dwayne Garcia: Assessment right pleural effusion: Continue diuretic therapy, empiric antimicrobials, thoracentesis recommended, eventual right heart cath work and secondary work-up for pH outpatient basis. 07/15/2021 echocardiogram: LV size and LV SF WNL, EF 60 to 65%. RV normal size and RV SF EF. Left atrium moderately enlarged, right atrium mildly enlarged. MV: Moderate mitral annular calcification, 1-2+ ME. TV: Normal. AV: Diffuse aortic valve calcification. [...] encounter (statuses as of 02/18/2023) [facility]04-17-2023 History of Past illness Narrative* [...] breath 09/16/2021 11/09/19 Acute respiratory failure 07/22/2021 06 /11/2022 Chronic passive congestion of liver 07/22/2021 11/08/2022 Cyst of kidney, acquired 07/22/202111/2022 Ischemia and infarction of kidney 07/22/2021 11/08/2022 Overview: Has seen Dr Calvin Leukocytosis 07/22/2021 11/08/2022 Encounter for support and co ordination of transition of care 07/20/2021 07/26/2022 Overview: Facility: [facility] Date of admission 07/14/2021 Date of discharge Prehospital work-up: Presented to 07/14/2021 to [facility] ED complaining of left-sided abdominal pain with multiple symptoms including cough, myalgias, nasal congestion, low dietary intake due to concerns that would aggravate stomach ache. Patient was exposed to Covid 2 weeks prior, unvaccinated. Vital signs: 98.3 [id number]/102-93% RA. Exam description: Tired, alert and nontoxic, [...] he could be done outpatient. 07/15/[address] Dwayne Garcia: Assessment right pleural effusion: Continue diuretic therapy, empiric antimicrobials, thoracentesis recommended, eventual right heart cath work and secondary work-up for pH outpatient basis. 07/15/2021 echocardiogram: LV size and LV SF WNL, EF 60 to 65%. RV normal size and RV SF EF. Left atrium moderately enlarged, right atrium mildly enlarged. MV: Moderate mitral annular calcification, 1-2+ ME. TV: Normal. AV: Diffuse aortic valve calcification. [...] or infectious process 07/16/2021: Ultrasound-guided thoracentesis Dr. Gray Reyes: 670 mL of blood-tinged cloudy fluid [...] encounter (statuses as of 02/21/2023) [facility]04-17-20[facility] History of Past illness Narrative* [...] care 07/20/2021 07/26/2022 Overview: Facility: [facility] Date of admission 07/14/2021 Date of discharge Prehospital work-up: Presented to 07/14/2021 to [facility] ED complaining of left-sided abdominal pain with multiple symptoms including cough, myalgias, nasal congestion, low dietary intake due to concerns that would aggravate stomach ache. Patient was exposed to Covid 2 weeks prior, unvaccinated. Vital signs: 98.3 [id number]/102-93% RA. Exam description: Tired, alert and nontoxic, [...] he could be done outpatient. 07/15/[address] Dwayne Garcia: Assessment right pleural effusion: Continue diuretic therapy, empiric antimicrobials, thoracentesis recommended, eventual right heart cath work and secondary work-up for pH outpatient basis. 07/15/2021 echocardiogram: LV size and LV SF WNL, EF 60 to 65%. RV normal size and RV SF EF. Left atrium moderately enlarged, right atrium mildly enlarged. MV: Moderate mitral annular calcification, 1-2+ ME. TV: Normal. AV: Diffuse aortic valve calcification. [...] encounter (statuses as of 02/22/2023) [facility]04-17-20[facility] History of Past illness Narrative* [...] breath 09/16/2021 11/09/19 Acute respiratory failure 07/22/2021 06 /11/2022 Chronic passive congestion of liver 07/22/2021 11/08/2022 Cyst of kidney, acquired 07/22/202111/2022 Ischemia and infarction of kidney 07/22/2021 11/08/2022 Overview: Has seen Dr Calvin Leukocytosis 07/22/2021 11/08/2022 Encounter for support and co ordination of transition of care 07/20/2021 07/26/2022 Overview: Facility: [facility] Date of admission 07/14/2021 Date of discharge Prehospital work-up: Presented to 07/14/2021 to [facility] ED complaining of left-sided abdominal pain with multiple symptoms including cough, myalgias, nasal congestion, low dietary intake due to concerns that would aggravate stomach ache. Patient was exposed to Covid 2 weeks prior, unvaccinated. Vital signs: 98.3 [id number]/102-93% RA. Exam description: Tired, alert and nontoxic, [...] he could be done outpatient. 07/15/[address] Dwayne Garcia: Assessment right pleural effusion: Continue diuretic therapy, empiric antimicrobials, thoracentesis recommended, eventual right heart cath work and secondary work-up for pH outpatient basis. 07/15/2021 echocardiogram: LV size and LV SF WNL, EF 60 to 65%. RV normal size and RV SF EF. Left atrium moderately enlarged, right atrium mildly enlarged. MV: Moderate mitral annular calcification, 1-2+ ME. TV: Normal. AV: Diffuse aortic valve calcification. [...] encounter (statuses as of 02/24/2023) [facility]04-17-20[facility] History of Past illness Narrative* [...] care 07/20/2021 07/26/2022 Overview: Facility: [facility] Date of admission 07/14/2021 Date of discharge Prehospital work-up: Presented to 07/14/2021 to [facility] ED complaining of left-sided abdominal pain with multiple symptoms including cough, myalgias, nasal congestion, low dietary intake due to concerns that would aggravate stomach ache. Patient was exposed to Covid 2 weeks prior, unvaccinated. Vital signs: 98.3 [id number]/102-93% RA. Exam description: Tired, alert and nontoxic, [...] he could be done outpatient. 07/15/[address] Dwayne Garcia: Assessment right pleural effusion: Continue diuretic therapy, empiric antimicrobials, thoracentesis recommended, eventual right heart cath work and secondary work-up for pH outpatient basis. 07/15/2021 echocardiogram: LV size and LV SF WNL, EF 60 to 65%. RV normal size and RV SF EF. Left atrium moderately enlarged, right atrium mildly enlarged. MV: Moderate mitral annular calcification, 1-2+ ME. TV: Normal. AV: Diffuse aortic valve calcification. [...] encounter (statuses as of 02/28/2023) [facility]04-17-2023 History of Past illness Narrative* [...] breath 09/16/2021 11/09/19 Acute respiratory failure 07/22/2021 06 /11/2022 Chronic passive congestion of liver 07/22/2021 11/08/2022 Cyst of kidney, acquired 07/22/202111/2022 Ischemia and infarction of kidney 07/22/2021 11/08/2022 Overview: Has seen Dr Calvin Leukocytosis 07/22/2021 11/08/2022 Encounter for support and co ordination of transition of care 07/20/2021 07/26/2022 Overview: Facility: [facility] Date of admission 07/14/2021 Date of discharge Prehospital work-up: Presented to 07/14/2021 to [facility] ED complaining of left-sided abdominal pain with multiple symptoms including cough, myalgias, nasal congestion, low dietary intake due to concerns that would aggravate stomach ache. Patient was exposed to Covid 2 weeks prior, unvaccinated. Vital signs: 98.3 [id number]/102-93% RA. Exam description: Tired, alert and nontoxic, [...] he could be done outpatient. 07/15/[address] Dwayne Garcia: Assessment right pleural effusion: Continue diuretic therapy, empiric antimicrobials, thoracentesis recommended, eventual right heart cath work and secondary work-up for pH outpatient basis. 07/15/2021 echocardiogram: LV size and LV SF WNL, EF 60 to 65%. RV normal size and RV SF EF. Left atrium moderately enlarged, right atrium mildly enlarged. MV: Moderate mitral annular calcification, 1-2+ ME. TV: Normal. AV: Diffuse aortic valve calcification. [...] encounter (statuses as of 03/15/2023) [facility]04-17-2023 History of Past illness Narrative* [...] care 07/20/2021 07/26/2022 Overview: Facility: [facility] Date of admission 07/14/2021 Date of discharge Prehospital work-up: Presented to 07/14/2021 to [facility] ED complaining of left-sided abdominal pain with multiple symptoms including cough, myalgias, nasal congestion, low dietary intake due to concerns that would aggravate stomach ache. Patient was exposed to Covid 2 weeks prior, unvaccinated. Vital signs: 98.3 [id number]/102-93% RA. Exam description: Tired, alert and nontoxic, [...] he could be done outpatient. 07/15/[address] Dwayne Garcia: Assessment right pleural effusion: Continue diuretic therapy, empiric antimicrobials, thoracentesis recommended, eventual right heart cath work and secondary work-up for pH outpatient basis. 07/15/2021 echocardiogram: LV size and LV SF WNL, EF 60 to 65%. RV normal size and RV SF EF. Left atrium moderately enlarged, right atrium mildly enlarged. MV: Moderate mitral annular calcification, 1-2+ ME. TV: Normal. AV: Diffuse aortic valve calcification. [...] encounter (statuses as of 03/15/2023) [facility]04-17-2023 History of Past illness Narrative* [...] breath 09/16/2021 11/09/19 Acute respiratory failure 07/22/2021 06 /11/2022 Chronic passive congestion of liver 07/22/2021 11/08/2022 Cyst of kidney, acquired 07/22/202111/2022 Ischemia and infarction of kidney 07/22/2021 11/08/2022 Overview: Has seen Dr Calvin Leukocytosis 07/22/2021 11/08/2022 Encounter for support and co ordination of transition of care 07/20/2021 07/26/2022 Overview: Facility: [facility] Date of admission 07/14/2021 Date of discharge Prehospital work-up: Presented to 07/14/2021 to [facility] ED complaining of left-sided abdominal pain with multiple symptoms including cough, myalgias, nasal congestion, low dietary intake due to concerns that would aggravate stomach ache. Patient was exposed to Covid 2 weeks prior, unvaccinated. Vital signs: 98.3 [id number]/102-93% RA. Exam description: Tired, alert and nontoxic, [...] he could be done outpatient. 07/15/[address] Dwayne Garcia: Assessment right pleural effusion: Continue diuretic therapy, empiric antimicrobials, thoracentesis recommended, eventual right heart cath work and secondary work-up for pH outpatient basis. 07/15/2021 echocardiogram: LV size and LV SF WNL, EF 60 to 65%. RV normal size and RV SF EF. Left atrium moderately enlarged, right atrium mildly enlarged. MV: Moderate mitral annular calcification, 1-2+ ME. TV: Normal. AV: Diffuse aortic valve calcification. [...] encounter (statuses as of 03/31/2023) [facility]04-17-2023 History of Past illness Narrative* [...] care 07/20/2021 07/26/2022 Overview: Facility: [facility] Date of admission 07/14/2021 Date of discharge Prehospital work-up: Presented to 07/14/2021 to [facility] ED complaining of left-sided abdominal pain with multiple symptoms including cough, myalgias, nasal congestion, low dietary intake due to concerns that would aggravate stomach ache. Patient was exposed to Covid 2 weeks prior, unvaccinated. Vital signs: 98.3 [id number]/102-93% RA. Exam description: Tired, alert and nontoxic, [...] he could be done outpatient. 07/15/[address] Dwayne Garcia: Assessment right pleural effusion: Continue diuretic therapy, empiric antimicrobials, thoracentesis recommended, eventual right heart cath work and secondary work-up for pH outpatient basis. 07/15/2021 echocardiogram: LV size and LV SF WNL, EF 60 to 65%. RV normal size and RV SF EF. Left atrium moderately enlarged, right atrium mildly enlarged. MV: Moderate mitral annular calcification, 1-2+ ME. TV: Normal. AV: Diffuse aortic valve calcification. [...] encounter (statuses as of 04/09/2023) [facility]04-17-2023 History of Past illness Narrative* [...] breath 09/16/2021 11/09/19 Acute respiratory failure 07/22/2021 06 /11/2022 Chronic passive congestion of liver 07/22/2021 11/08/2022 Cyst of kidney, acquired 07/22/202111/2022 Ischemia and infarction of kidney 07/22/2021 11/08/2022 Overview: Has seen Dr Calvin Leukocytosis 07/22/2021 11/08/2022 Encounter for support and co ordination of transition of care 07/20/2021 07/26/2022 Overview: Facility: [facility] Date of admission 07/14/2021 Date of discharge Prehospital work-up: Presented to 07/14/2021 to [facility] ED complaining of left-sided abdominal pain with multiple symptoms including cough, myalgias, nasal congestion, low dietary intake due to concerns that would aggravate stomach ache. Patient was exposed to Covid 2 weeks prior, unvaccinated. Vital signs: 98.3 [id number]/102-93% RA. Exam description: Tired, alert and nontoxic, [...] he could be done outpatient. 07/15/[address] Dwayne Garcia: Assessment right pleural effusion: Continue diuretic therapy, empiric antimicrobials, thoracentesis recommended, eventual right heart cath work and secondary work-up for pH outpatient basis. 07/15/2021 echocardiogram: LV size and LV SF WNL, EF 60 to 65%. RV normal size and RV SF EF. Left atrium moderately enlarged, right atrium mildly enlarged. MV: Moderate mitral annular calcification, 1-2+ ME. TV: Normal. AV: Diffuse aortic valve calcification. [...] encounter (statuses as of 04/09/2023) [facility]04-17-2023 History of Past illness Narrative* [...] care 07/20/2021 07/26/2022 Overview: Facility: [facility] Date of admission 07/14/2021 Date of discharge Prehospital work-up: Presented to 07/14/2021 to [facility] ED complaining of left-sided abdominal pain with multiple symptoms including cough, myalgias, nasal congestion, low dietary intake due to concerns that would aggravate stomach ache. Patient was exposed to Covid 2 weeks prior, unvaccinated. Vital signs: 98.3 [id number]/102-93% RA. Exam description: Tired, alert and nontoxic, [...] he could be done outpatient. 07/15/[address] Dwayne Garcia: Assessment right pleural effusion: Continue diuretic therapy, empiric antimicrobials, thoracentesis recommended, eventual right heart cath work and secondary work-up for pH outpatient basis. 07/15/2021 echocardiogram: LV size and LV SF WNL, EF 60 to 65%. RV normal size and RV SF EF. Left atrium moderately enlarged, right atrium mildly enlarged. MV: Moderate mitral annular calcification, 1-2+ ME. TV: Normal. AV: Diffuse aortic valve calcification. [...] encounter (statuses as of 04/12/2023) [facility]04-17-2023 History of Past illness Narrative* [...] breath 09/16/2021 11/09/19 Acute respiratory failure 07/22/2021 06 /11/2022 Chronic passive congestion of liver 07/22/2021 11/08/2022 Cyst of kidney, acquired 07/22/202111/2022 Ischemia and infarction of kidney 07/22/2021 11/08/2022 Overview: Has seen Dr Calvin Leukocytosis 07/22/2021 11/08/2022 Encounter for support and co ordination of transition of care 07/20/2021 07/26/2022 Overview: Facility: [facility] Date of admission 07/14/2021 Date of discharge Prehospital work-up: Presented to 07/14/2021 to [facility] ED complaining of left-sided abdominal pain with multiple symptoms including cough, myalgias, nasal congestion, low dietary intake due to concerns that would aggravate stomach ache. Patient was exposed to Covid 2 weeks prior, unvaccinated. Vital signs: 98.3 [id number]/102-93% RA. Exam description: Tired, alert and nontoxic, [...] he could be done outpatient. 07/15/[address] Dwayne Garcia: Assessment right pleural effusion: Continue diuretic therapy, empiric antimicrobials, thoracentesis recommended, eventual right heart cath work and secondary work-up for pH outpatient basis. 07/15/2021 echocardiogram: LV size and LV SF WNL, EF 60 to 65%. RV normal size and RV SF EF. Left atrium moderately enlarged, right atrium mildly enlarged. MV: Moderate mitral annular calcification, 1-2+ ME. TV: Normal. AV: Diffuse aortic valve calcification. [...] encounter (statuses as of 05/02/2023) [facility]04-17-2023 History of Past illness Narrative* [...] care 07/20/2021 07/26/2022 Overview: Facility: [facility] Date of admission 07/14/2021 Date of discharge Prehospital work-up: Presented to 07/14/2021 to [facility] ED complaining of left-sided abdominal pain with multiple symptoms including cough, myalgias, nasal congestion, low dietary intake due to concerns that would aggravate stomach ache. Patient was exposed to Covid 2 weeks prior, unvaccinated. Vital signs: 98.3 [id number]/102-93% RA. Exam description: Tired, alert and nontoxic, [...] he could be done outpatient. 07/15/[address] Dwayne Garcia: Assessment right pleural effusion: Continue diuretic therapy, empiric antimicrobials, thoracentesis recommended, eventual right heart cath work and secondary work-up for pH outpatient basis. 07/15/2021 echocardiogram: LV size and LV SF WNL, EF 60 to 65%. RV normal size and RV SF EF. Left atrium moderately enlarged, right atrium mildly enlarged. MV: Moderate mitral annular calcification, 1-2+ ME. TV: Normal. AV: Diffuse aortic valve calcification. [...] encounter (statuses as of 05/02/2023) [facility]04-17-2023 History of Past illness Narrative* [...] breath 09/16/2021 11/09/19 Acute respiratory failure 07/22/2021 06 /11/2022 Chronic passive congestion of liver 07/22/2021 11/08/2022 Cyst of kidney, acquired 07/22/202111/2022 Ischemia and infarction of kidney 07/22/2021 11/08/2022 Overview: Has seen Dr Calvin Leukocytosis 07/22/2021 11/08/2022 Encounter for support and co ordination of transition of care 07/20/2021 07/26/2022 Overview: Facility: [facility] Date of admission 07/14/2021 Date of discharge Prehospital work-up: Presented to 07/14/2021 to [facility] ED complaining of left-sided abdominal pain with multiple symptoms including cough, myalgias, nasal congestion, low dietary intake due to concerns that would aggravate stomach ache. Patient was exposed to Covid 2 weeks prior, unvaccinated. Vital signs: 98.3 [id number]/102-93% RA. Exam description: Tired, alert and nontoxic, [...] he could be done outpatient. 07/15/[address] Dwayne Garcia: Assessment right pleural effusion: Continue diuretic therapy, empiric antimicrobials, thoracentesis recommended, eventual right heart cath work and secondary work-up for pH outpatient basis. 07/15/2021 echocardiogram: LV size and LV SF WNL, EF 60 to 65%. RV normal size and RV SF EF. Left atrium moderately enlarged, right atrium mildly enlarged. MV: Moderate mitral annular calcification, 1-2+ ME. TV: Normal. AV: Diffuse aortic valve calcification. [...] encounter (statuses as of 05/03/2023) [facility]04-17-2023 History of Past illness Narrative* [...] care 07/20/2021 07/26/2022 Overview: Facility: [facility] Date of admission 07/14/2021 Date of discharge Prehospital work-up: Presented to 07/14/2021 to [facility] ED complaining of left-sided abdominal pain with multiple symptoms including cough, myalgias, nasal congestion, low dietary intake due to concerns that would aggravate stomach ache. Patient was exposed to Covid 2 weeks prior, unvaccinated. Vital signs: 98.3 [id number]/102-93% RA. Exam description: Tired, alert and nontoxic, [...] he could be done outpatient. 07/15/[address] Dwayne Garcia: Assessment right pleural effusion: Continue diuretic therapy, empiric antimicrobials, thoracentesis recommended, eventual right heart cath work and secondary work-up for pH outpatient basis. 07/15/2021 echocardiogram: LV size and LV SF WNL, EF 60 to 65%. RV normal size and RV SF EF. Left atrium moderately enlarged, right atrium mildly enlarged. MV: Moderate mitral annular calcification, 1-2+ ME. TV: Normal. AV: Diffuse aortic valve calcification. [...] encounter (statuses as of 05/05/2023) [facility]04-17-2023 History of Past illness Narrative* [...] breath 09/16/2021 11/09/19 Acute respiratory failure 07/22/2021 06 /11/2022 Chronic passive congestion of liver 07/22/2021 11/08/2022 Cyst of kidney, acquired 07/22/202111/2022 Ischemia and infarction of kidney 07/22/2021 11/08/2022 Overview: Has seen Dr Calvin Leukocytosis 07/22/2021 11/08/2022 Encounter for support and co ordination of transition of care 07/20/2021 07/26/2022 Overview: Facility: [facility] Date of admission 07/14/2021 Date of discharge Prehospital work-up: Presented to 07/14/2021 to [facility] ED complaining of left-sided abdominal pain with multiple symptoms including cough, myalgias, nasal congestion, low dietary intake due to concerns that would aggravate stomach ache. Patient was exposed to Covid 2 weeks prior, unvaccinated. Vital signs: 98.3 [id number]/102-93% RA. Exam description: Tired, alert and nontoxic, [...] he could be done outpatient. 07/15/[address] Dwayne Garcia: Assessment right pleural effusion: Continue diuretic therapy, empiric antimicrobials, thoracentesis recommended, eventual right heart cath work and secondary work-up for pH outpatient basis. 07/15/2021 echocardiogram: LV size and LV SF WNL, EF 60 to 65%. RV normal size and RV SF EF. Left atrium moderately enlarged, right atrium mildly enlarged. MV: Moderate mitral annular calcification, 1-2+ ME. TV: Normal. AV: Diffuse aortic valve calcification. [...] encounter (statuses as of 05/10/2023) [facility]04-17-2023 History of Past illness Narrative* [...] care 07/20/2021 07/26/2022 Overview: Facility: [facility] Date of admission 07/14/2021 Date of discharge Prehospital work-up: Presented to 07/14/2021 to [facility] ED complaining of left-sided abdominal pain with multiple symptoms including cough, myalgias, nasal congestion, low dietary intake due to concerns that would aggravate stomach ache. Patient was exposed to Covid 2 weeks prior, unvaccinated. Vital signs: 98.3 [id number]/102-93% RA. Exam description: Tired, alert and nontoxic, [...] he could be done outpatient. 07/15/[address] Dwayne Garcia: Assessment right pleural effusion: Continue diuretic therapy, empiric antimicrobials, thoracentesis recommended, eventual right heart cath work and secondary work-up for pH outpatient basis. 07/15/2021 echocardiogram: LV size and LV SF WNL, EF 60 to 65%. RV normal size and RV SF EF. Left atrium moderately enlarged, right atrium mildly enlarged. MV: Moderate mitral annular calcification, 1-2+ ME. TV: Normal. AV: Diffuse aortic valve calcification. [...] encounter (statuses as of 05/11/2023) [facility]04-17-2023 History of Past illness Narrative* [...] breath 09/16/2021 11/09/19 Acute respiratory failure 07/22/2021 06 /11/2022 Chronic passive congestion of liver 07/22/2021 11/08/2022 Cyst of kidney, acquired 07/22/202111/2022 Ischemia and infarction of kidney 07/22/2021 11/08/2022 Overview: Has seen Dr Calvin Leukocytosis 07/22/2021 11/08/2022 Encounter for support and co ordination of transition of care 07/20/2021 07/26/2022 Overview: Facility: [facility] Date of admission 07/14/2021 Date of discharge Prehospital work-up: Presented to 07/14/2021 to [facility] ED complaining of left-sided abdominal pain with multiple symptoms including cough, myalgias, nasal congestion, low dietary intake due to concerns that would aggravate stomach ache. Patient was exposed to Covid 2 weeks prior, unvaccinated. Vital signs: 98.3 [id number]/102-93% RA. Exam description: Tired, alert and nontoxic, [...] he could be done outpatient. 07/15/[address] Dwayne Garcia: Assessment right pleural effusion: Continue diuretic therapy, empiric antimicrobials, thoracentesis recommended, eventual right heart cath work and secondary work-up for pH outpatient basis. 07/15/2021 echocardiogram: LV size and LV SF WNL, EF 60 to 65%. RV normal size and RV SF EF. Left atrium moderately enlarged, right atrium mildly enlarged. MV: Moderate mitral annular calcification, 1-2+ ME. TV: Normal. AV: Diffuse aortic valve calcification. [...] encounter (statuses as of 05/13/2023) [facility]04-17-2023 History of Past illness Narrative* [...] care 07/20/2021 07/26/2022 Overview: Facility: [facility] Date of admission 07/14/2021 Date of discharge Prehospital work-up: Presented to 07/14/2021 to [facility] ED complaining of left-sided abdominal pain with multiple symptoms including cough, myalgias, nasal congestion, low dietary intake due to concerns that would aggravate stomach ache. Patient was exposed to Covid 2 weeks prior, unvaccinated. Vital signs: 98.3 [id number]/102-93% RA. Exam description: Tired, alert and nontoxic, [...] he could be done outpatient. 07/15/[address] Dwayne Garcia: Assessment right pleural effusion: Continue diuretic therapy, empiric antimicrobials, thoracentesis recommended, eventual right heart cath work and secondary work-up for pH outpatient basis. 07/15/2021 echocardiogram: LV size and LV SF WNL, EF 60 to 65%. RV normal size and RV SF EF. Left atrium moderately enlarged, right atrium mildly enlarged. MV: Moderate mitral annular calcification, 1-2+ ME. TV: Normal. AV: Diffuse aortic valve calcification. [...] release 24-hour: 1 capsule daily Referral/follow-up: Dr. Flqauito Mariee pulmonology 2 weeks Hypokalemia 07/09/2021 11/08/2022 [...] encounter (statuses as of 05/26/2023) [facility]04-17-20[facility] History of Past illness Narrative* [...] breath 09/16/2021 11/09/19 Acute respiratory failure 07/22/2021 06 /11/2022 Chronic passive congestion of liver 07/22/2021 11/08/2022 Cyst of kidney, acquired 07/22/202111/2022 Ischemia and infarction of kidney 07/22/2021 11/08/2022 Overview: Has seen Dr Calvin Leukocytosis 07/22/2021 11/08/2022 Encounter for support and co ordination of transition of care 07/20/2021 07/26/2022 Overview: Facility: [facility] Date of admission 07/14/2021 Date of discharge Prehospital work-up: Presented to 07/14/2021 to [facility] ED complaining of left-sided abdominal pain with multiple symptoms including cough, myalgias, nasal congestion, low dietary intake due to concerns that would aggravate stomach ache. Patient was exposed to Covid 2 weeks prior, unvaccinated. Vital signs: 98.3 [id number]/102-93% RA. Exam description: Tired, alert and nontoxic, [...] he could be done outpatient. 07/15/[address] Dwayne Garcia: Assessment right pleural effusion: Continue diuretic therapy, empiric antimicrobials, thoracentesis recommended, eventual right heart cath work and secondary work-up for pH outpatient basis. 07/15/2021 echocardiogram: LV size and LV SF WNL, EF 60 to 65%. RV normal size and RV SF EF. Left atrium moderately enlarged, right atrium mildly enlarged. MV: Moderate mitral annular calcification, 1-2+ ME. TV: Normal. AV: Diffuse aortic valve calcification. [...] encounter (statuses as of 07/11/2023) [facility]04-17-20[facility] History of Past illness Narrative* [...] care 07/20/2021 07/26/2022 Overview: Facility: [facility] Date of admission 07/14/2021 Date of discharge Prehospital work-up: Presented to 07/14/2021 to [facility] ED complaining of left-sided abdominal pain with multiple symptoms including cough, myalgias, nasal congestion, low dietary intake due to concerns that would aggravate stomach ache. Patient was exposed to Covid 2 weeks prior, unvaccinated. Vital signs: 98.3 [id number]/102-93% RA. Exam description: Tired, alert and nontoxic, [...] he could be done outpatient. 07/15/[address] Dwayne Garcia: Assessment right pleural effusion: Continue diuretic therapy, empiric antimicrobials, thoracentesis recommended, eventual right heart cath work and secondary work-up for pH outpatient basis. 07/15/2021 echocardiogram: LV size and LV SF WNL, EF 60 to 65%. RV normal size and RV SF EF. Left atrium moderately enlarged, right atrium mildly enlarged. MV: Moderate mitral annular calcification, 1-2+ ME. TV: Normal. AV: Diffuse aortic valve calcification. [...] and wants to transfer care to Dr. Mraiee. She did develop atrial fib with rapid [...] encounter (statuses as of 07/11/2023) [facility]04-17-2023 History of Past illness Narrative* [...] breath 09/16/2021 11/09/19 Acute respiratory failure 07/22/2021 06 /11/2022 Chronic passive congestion of liver 07/22/2021 11/08/2022 Cyst of kidney, acquired 07/22/202111/2022 Ischemia and infarction of kidney 07/22/2021 11/08/2022 Overview: Has seen Dr Calvin Leukocytosis 07/22/2021 11/08/2022 Encounter for support and co ordination of transition of care 07/20/2021 07/26/2022 Overview: Facility: [facility] Date of admission 07/14/2021 Date of discharge Prehospital work-up: Presented to 07/14/2021 to [facility] ED complaining of left-sided abdominal pain with multiple symptoms including cough, myalgias, nasal congestion, low dietary intake due to concerns that would aggravate stomach ache. Patient was exposed to Covid 2 weeks prior, unvaccinated. Vital signs: 98.3 [id number]/102-93% RA. Exam description: Tired, alert and nontoxic, [...] he could be done outpatient. 07/15/[address] Dwayne Garcia: Assessment right pleural effusion: Continue diuretic therapy, empiric antimicrobials, thoracentesis recommended, eventual right heart cath work and secondary work-up for pH outpatient basis. 07/15/2021 echocardiogram: LV size and LV SF WNL, EF 60 to 65%. RV normal size and RV SF EF. Left atrium moderately enlarged, right atrium mildly enlarged. MV: Moderate mitral annular calcification, 1-2+ ME. TV: Normal. AV: Diffuse aortic valve calcification. [...] encounter (statuses as of 07/25/2023) [facility]04-17-2023 History of Past illness Narrative* [...] care 07/20/2021 07/26/2022 Overview: Facility: [facility] Date of admission 07/14/2021 Date of discharge Prehospital work-up: Presented to 07/14/2021 to [facility] ED complaining of left-sided abdominal pain with multiple symptoms including cough, myalgias, nasal congestion, low dietary intake due to concerns that would aggravate stomach ache. Patient was exposed to Covid 2 weeks prior, unvaccinated. Vital signs: 98.3 [id number]/102-93% RA. Exam description: Tired, alert and nontoxic, [...] he could be done outpatient. 07/15/[address] Dwayne Garcia: Assessment right pleural effusion: Continue diuretic therapy, empiric antimicrobials, thoracentesis recommended, eventual right heart cath work and secondary work-up for pH outpatient basis. 07/15/2021 echocardiogram: LV size and LV SF WNL, EF 60 to 65%. RV normal size and RV SF EF. Left atrium moderately enlarged, right atrium mildly enlarged. MV: Moderate mitral annular calcification, 1-2+ ME. TV: Normal. AV: Diffuse aortic valve calcification. [...] encounter (statuses as of 07/25/2023) [facility]04-17-2023 History of Past illness Narrative* [...] breath 09/16/2021 11/09/19 Acute respiratory failure 07/22/2021 06 /11/2022 Chronic passive congestion of liver 07/22/2021 11/08/2022 Cyst of kidney, acquired 07/22/202111/2022 Ischemia and infarction of kidney 07/22/2021 11/08/2022 Overview: Has seen Dr Calvin Leukocytosis 07/22/2021 11/08/2022 Encounter for support and co ordination of transition of care 07/20/2021 07/26/2022 Overview: Facility: [facility] Date of admission 07/14/2021 Date of discharge Prehospital work-up: Presented to 07/14/2021 to [facility] ED complaining of left-sided abdominal pain with multiple symptoms including cough, myalgias, nasal congestion, low dietary intake due to concerns that would aggravate stomach ache. Patient was exposed to Covid 2 weeks prior, unvaccinated. Vital signs: 98.3 [id number]/102-93% RA. Exam description: Tired, alert and nontoxic, [...] he could be done outpatient. 07/15/[address] Dwayne Garcia: Assessment right pleural effusion: Continue diuretic therapy, empiric antimicrobials, thoracentesis recommended, eventual right heart cath work and secondary work-up for pH outpatient basis. 07/15/2021 echocardiogram: LV size and LV SF WNL, EF 60 to 65%. RV normal size and RV SF EF. Left atrium moderately enlarged, right atrium mildly enlarged. MV: Moderate mitral annular calcification, 1-2+ ME. TV: Normal. AV: Diffuse aortic valve calcification. [...] encounter (statuses as of 08/02/2023) [facility]04-17-2023 History of Past illness Narrative* [...] care 07/20/2021 07/26/2022 Overview: Facility: [facility] Date of admission 07/14/2021 Date of discharge Prehospital work-up: Presented to 07/14/2021 to [facility] ED complaining of left-sided abdominal pain with multiple symptoms including cough, myalgias, nasal congestion, low dietary intake due to concerns that would aggravate stomach ache. Patient was exposed to Covid 2 weeks prior, unvaccinated. Vital signs: 98.3 [id number]/102-93% RA. Exam description: Tired, alert and nontoxic, [...] he could be done outpatient. 07/15/[address] Dwayne Garcia: Assessment right pleural effusion: Continue diuretic therapy, empiric antimicrobials, thoracentesis recommended, eventual right heart cath work and secondary work-up for pH outpatient basis. 07/15/2021 echocardiogram: LV size and LV SF WNL, EF 60 to 65%. RV normal size and RV SF EF. Left atrium moderately enlarged, right atrium mildly enlarged. MV: Moderate mitral annular calcification, 1-2+ ME. TV: Normal. AV: Diffuse aortic valve calcification. [...] release 24-hour: 1 capsule daily Referral/follow-up: Dr. Flaquiot Mariee pulmonology 2 weeks Hypokalemia 07/09/2021 11/08/2022 [...] encounter (statuses as of 08/03/2023) [facility]04-17-[facility] History of Past illness Narrative* [...] breath 09/16/2021 11/09/19 Acute respiratory failure 07/22/2021 06 /11/2022 Chronic passive congestion of liver 07/22/2021 11/08/2022 Cyst of kidney, acquired 07/22/202111/2022 Ischemia and infarction of kidney 07/22/2021 11/08/2022 Overview: Has seen Dr Calvin Leukocytosis 07/22/2021 11/08/2022 Encounter for support and co ordination of transition of care 07/20/2021 07/26/2022 Overview: Facility: [facility] Date of admission 07/14/2021 Date of discharge Prehospital work-up: Presented to 07/14/2021 to [facility] ED complaining of left-sided abdominal pain with multiple symptoms including cough, myalgias, nasal congestion, low dietary intake due to concerns that would aggravate stomach ache. Patient was exposed to Covid 2 weeks prior, unvaccinated. Vital signs: 98.3 [id number]/102-93% RA. Exam description: Tired, alert and nontoxic, [...] he could be done outpatient. 07/15/[address] Dwayne Garcia: Assessment right pleural effusion: Continue diuretic therapy, empiric antimicrobials, thoracentesis recommended, eventual right heart cath work and secondary work-up for pH outpatient basis. 07/15/2021 echocardiogram: LV size and LV SF WNL, EF 60 to 65%. RV normal size and RV SF EF. Left atrium moderately enlarged, right atrium mildly enlarged. MV: Moderate mitral annular calcification, 1-2+ ME. TV: Normal. AV: Diffuse aortic valve calcification. [...] encounter (statuses as of 08/03/2023) [facility]04-17-2023 History of Past illness Narrative* [...] care 07/20/2021 07/26/2022 Overview: Facility: [facility] Date of admission 07/14/2021 Date of discharge Prehospital work-up: Presented to 07/14/2021 to [facility] ED complaining of left-sided abdominal pain with multiple symptoms including cough, myalgias, nasal congestion, low dietary intake due to concerns that would aggravate stomach ache. Patient was exposed to Covid 2 weeks prior, unvaccinated. Vital signs: 98.3 [id number]/102-93% RA. Exam description: Tired, alert and nontoxic, [...] he could be done outpatient. 07/15/[address] Dwayne Garcia: Assessment right pleural effusion: Continue diuretic therapy, empiric antimicrobials, thoracentesis recommended, eventual right heart cath work and secondary work-up for pH outpatient basis. 07/15/2021 echocardiogram: LV size and LV SF WNL, EF 60 to 65%. RV normal size and RV SF EF. Left atrium moderately enlarged, right atrium mildly enlarged. MV: Moderate mitral annular calcification, 1-2+ ME. TV: Normal. AV: Diffuse aortic valve calcification. [...] encounter (statuses as of 08/16/2023) [facility]04-17-20[facility] History of Past illness Narrative* [...] breath 09/16/2021 11/09/19 Acute respiratory failure 07/22/2021 06 /11/2022 Chronic passive congestion of liver 07/22/2021 11/08/2022 Cyst of kidney, acquired 07/22/202111/2022 Ischemia and infarction of kidney 07/22/2021 11/08/2022 Overview: Has seen Dr Calvin Leukocytosis 07/22/2021 11/08/2022 Encounter for support and co ordination of transition of care 07/20/2021 07/26/2022 Overview: Facility: [facility] Date of admission 07/14/2021 Date of discharge Prehospital work-up: Presented to 07/14/2021 to [facility] ED complaining of left-sided abdominal pain with multiple symptoms including cough, myalgias, nasal congestion, low dietary intake due to concerns that would aggravate stomach ache. Patient was exposed to Covid 2 weeks prior, unvaccinated. Vital signs: 98.3 [id number]/102-93% RA. Exam description: Tired, alert and nontoxic, [...] he could be done outpatient. 07/15/[address] Dwayne Garcia: Assessment right pleural effusion: Continue diuretic therapy, empiric antimicrobials, thoracentesis recommended, eventual right heart cath work and secondary work-up for pH outpatient basis. 07/15/2021 echocardiogram: LV size and LV SF WNL, EF 60 to 65%. RV normal size and RV SF EF. Left atrium moderately enlarged, right atrium mildly enlarged. MV: Moderate mitral annular calcification, 1-2+ ME. TV: Normal. AV: Diffuse aortic valve calcification. [...] encounter (statuses as of 08/23/2023) [facility]04-17-20[facility] History of Past illness Narrative* [...] care 07/20/2021 07/26/2022 Overview: Facility: [facility] Date of admission 07/14/2021 Date of discharge Prehospital work-up: Presented to 07/14/2021 to [facility] ED complaining of left-sided abdominal pain with multiple symptoms including cough, myalgias, nasal congestion, low dietary intake due to concerns that would aggravate stomach ache. Patient was exposed to Covid 2 weeks prior, unvaccinated. Vital signs: 98.3 [id number]/102-93% RA. Exam description: Tired, alert and nontoxic, [...] he could be done outpatient. 07/15/[address] Dwayne Garcia: Assessment right pleural effusion: Continue diuretic therapy, empiric antimicrobials, thoracentesis recommended, eventual right heart cath work and secondary work-up for pH outpatient basis. 07/15/2021 echocardiogram: LV size and LV SF WNL, EF 60 to 65%. RV normal size and RV SF EF. Left atrium moderately enlarged, right atrium mildly enlarged. MV: Moderate mitral annular calcification, 1-2+ ME. TV: Normal. AV: Diffuse aortic valve calcification. [...] encounter (statuses as of 08/29/2023) [facility]04-17-20[facility] History of Past illness Narrative* [...] breath 09/16/2021 11/09/19 Acute respiratory failure 07/22/2021 06 /11/2022 Chronic passive congestion of liver 07/22/2021 11/08/2022 Cyst of kidney, acquired 07/22/202111/2022 Ischemia and infarction of kidney 07/22/2021 11/08/2022 Overview: Has seen Dr Calvin Leukocytosis 07/22/2021 11/08/2022 Encounter for support and co ordination of transition of care 07/20/2021 07/26/2022 Overview: Facility: [facility] Date of admission 07/14/2021 Date of discharge Prehospital work-up: Presented to 07/14/2021 to [facility] ED complaining of left-sided abdominal pain with multiple symptoms including cough, myalgias, nasal congestion, low dietary intake due to concerns that would aggravate stomach ache. Patient was exposed to Covid 2 weeks prior, unvaccinated. Vital signs: 98.3 [id number]/102-93% RA. Exam description: Tired, alert and nontoxic, [...] he could be done outpatient. 07/15/[address] Dwayne Garcia: Assessment right pleural effusion: Continue diuretic therapy, empiric antimicrobials, thoracentesis recommended, eventual right heart cath work and secondary work-up for pH outpatient basis. 07/15/2021 echocardiogram: LV size and LV SF WNL, EF 60 to 65%. RV normal size and RV SF EF. Left atrium moderately enlarged, right atrium mildly enlarged. MV: Moderate mitral annular calcification, 1-2+ ME. TV: Normal. AV: Diffuse aortic valve calcification. [...] encounter (statuses as of 09/08/2023) [facility]04-17-2023 History of Past illness Narrative* [...] care 07/20/2021 07/26/2022 Overview: Facility: [facility] Date of admission 07/14/2021 Date of discharge Prehospital work-up: Presented to 07/14/2021 to [facility] ED complaining of left-sided abdominal pain with multiple symptoms including cough, myalgias, nasal congestion, low dietary intake due to concerns that would aggravate stomach ache. Patient was exposed to Covid 2 weeks prior, unvaccinated. Vital signs: 98.3 [id number]/102-93% RA. Exam description: Tired, alert and nontoxic, [...] he could be done outpatient. 07/15/[address] Dwayne Garcia: Assessment right pleural effusion: Continue diuretic therapy, empiric antimicrobials, thoracentesis recommended, eventual right heart cath work and secondary work-up for pH outpatient basis. 07/15/2021 echocardiogram: LV size and LV SF WNL, EF 60 to 65%. RV normal size and RV SF EF. Left atrium moderately enlarged, right atrium mildly enlarged. MV: Moderate mitral annular calcification, 1-2+ ME. TV: Normal. AV: Diffuse aortic valve calcification. [...] encounter (statuses as of 09/22/2023) [facility]04-03-2023 History of Present illness Narrative* [...] 2:26 PM documented in this encounterUniversity [facility]als [facility]03[facility] History of Present illness Narrative* [...] FORTICAL) 200 unit/actuation nasal spray Use 1 [place] in the nose once daily. Back Brace [...] Moderate mitral regurgitation 06/18/2021 04/27/21 Echo at [facility]. Pleural effusion, right 05/05/2020 CXR [...] Bonilla MD documented in this encounterUniversity Hospitals [facility]03-27-2023 Miscellaneous Notes* Addendum Note - Christopher Bonilla MD - 08/29/2022 2:11 PM EDTAddended by: CHRISTOPHER BONILLA on: 08/29/2022 02:11 PM Modules accepted: Orders documented in this encounterUniversity Hospitals [facility]03-27-2023 History of Present illness Narrative* [...] try the gabapentin. Please send to [facility] for her. * Christopher Bonilla MD - [...] rated a 10/10 and describes it as tightness. Pt states she has been taking tylenol [...] like to speak with a social work teamcenter consultant to help give you support for any [...] you up for automated weekly questionnaires through [employer]. This is an easy way for us [...] End outreach. documented in this encounterUniversity Hospitals [facility]03-21-2023 History of Present illness Narrative* Christopher Bonilla MD - 08/23/2022 2:24 PM EDT agree * Yanely Posadas RN - 08/23/2022 1:54 PM EDT patient had inr completed at [facility] patients inr is 2.9 (patients inr [...] up INR. documented in this encounterUniversity Hospitals [facility]03-17-2023 Miscellaneous Notes* Telephone Encounter - [...] picked up the back brace from [facility] yet, asking if this is ok to [...] Coleman RN documented in this encounterUniversity Hospitals [facility]03-16-2023 History of Present illness Narrative* [...] 12:02 PM documented in this encounterUniversity Hospitals A[facility]02-23-2023 History of Present illness Narrative* [...] FORTICAL) 200 unit/actuation nasal spray Use 1 [place] in the nose once daily. omeprazole (PRILOSEC) [...] rash. PAST MEDICAL HISTORY Diagnosis Date A-fib ([facility]) Class 1 congestive heart failure, unspecified failure chronicity, systolic ([facility]) 11/21/2019 Dysphagia, unspecified(787.20) Esophageal reflux Esophagitis, unspecified Marfan's syndrome Moderate mitral regurgitation 06/18/2021 04/27/21 Echo at [facility]. Pleural effusion, right 05/05/2020 CXR [...] Bonilla MD documented in this encounterUniversity Hospitals A[facility] Center02-16-2023 History of Present illness Narrative* Monroe Santoyo MD - 07/21/2022 3:25 PM EST No changes in coumadin dosing needed. Agree with next INR check. * Yanely Posadas RN - 07/21/2022 2:37 PM EST patient had inr completed at [facility] patients inr is 2.4 (patients inr range is 2.0-3.0) patient is currently taking 4mg Mon,Thurs and 2mg all other days patients last dose change was on 05/19/22 due to a high level of 3.2 (dose at that time was 4mg Mon,Tu,Wed and 2mg all other days) patient has [...] up INR. documented in this encounterUniversity Hospitals [facility]02-02-2023 History of Present illness Narrative* Yanely Posadas RN - 07/07/2022 2:03 PM EST patient had inr completed at [facility] patients inr is 1.8 (patients inr range is 2.0-3.0) patient is currently taking 4mg Mon, and 2mg all other days patients last [...] missed doses documented in this encounterUniversity Hospitals [facility]01-30-2023 Miscellaneous Notes* Telephone Encounter - [...] 06/29/22. Airam Ayon RN documented in this encounterUniversity Hospitals [facility]hu[facility]01-30-2023 History of Present illness Narrative* Amita Marquez - 07/04/2022 12:36 PM EST POPULATION HEALTH [...] ASSESSMENT due on 06/05/2022 Navigation Signature: Amita Marquez July 04, 2022 12:36 PM documented in this encounterUniversity Hospitals [facility]01-26-2023 Miscellaneous Notes* Telephone Encounter - [...] and advise. documented in this encounterUniversity Hospitals [facility]01-25-2023 History of Present illness Narrative* [...] history is provided by the patient. No language asst was used. Review of Systems Constitutional: Negative. Skin: Negative. Objective Physical Exam Constitutional: Appearance: Normal appearance. Pulmonary: Effort: Pulmonary effort is normal. Musculoskeletal: Arms: Comments: Patient is tender in the middle the purple area no swelling bruising noted. Neurological: Mental Status: She is alert. PAST MEDICAL HISTORY Diagnosis Date A-fib ([facility]) Class 1 congestive heart failure, unspecified failure chronicity, systolic ([facility]) 11/21/2019 Dysphagia, unspecified(787.20) Esophageal reflux Esophagitis, unspecified Marfan's syndrome Moderate mitral regurgitation 06/18/2021 04/27/21 Echo at [facility]. Pleural effusion, right 05/05/2020 CXR [...] Logan APRN.TRICIA documented in this encounterUniversity Hospitals Ahuja [facility] Center01-17-2023 History of Present illness Narrative* [...] like to speak with a social work teamcenter consultant to help give you support for any [...] you up for automated weekly questionnaires through [employer]. This is an easy way for us [...] End outreach. documented in this encounterUniversity Hospitals Ahu[facility]01-13-2023 Miscellaneous Notes* Telephone Encounter - Harley Ordaz CECILE - 06/17/2022 2:36 PM EST Patient calling started with symptoms few days ago, dry cough, congestion, sneezing. No appt available with PCP or OFFBEARER this afternoon. Ad[facility] and gave herhours of operation. documented in this encounterUniversity Hospitals Ahuja [facility] Center12-30-2022 Miscellaneous Notes* Telephone Encounter - Myah Dunn RN - 06/03/2022 2:46 PM EST Faxed general surgery referral and US thyroid results to Dr. Abimael Evans, [facility], per patient request. . Reports Dr. Saab's office cancelled the appt with him b/c he will be out oftown. Reports Dr. Maxine Evans agreeable to see [...] in caring for your patient. [facility] is committed to providing safe [...] clinical team. documented in this encounterUniversity Hospitals Ahuja Medical Center12-22-2022 History of Present illness Narrative* Christopher Bonilla MD - 05/26/2022 2:55 PM EST agree * Yanely Posadas RN - 05/26/2022 2:30 PM EST patient had inr completed at [facility] patients inr is 2.8 (patients inr [...] dose change documented in this encounterUniversity Hospitals Ahuja Medical Center12-17-2022 Miscellaneous Notes* Telephone Encounter - [...] help schedule. documented in this encounterUniversity Hospitals Ahuja Medical Center12-15-2022 History of Present illness Narrative* Yanely Posadas RN - 05/19/2022 3:15 PM EST PATIENT NOTIFIED OF INFORMATION * Eddie Nunez MD - 05/19/2022 2:52 PM EST INR slightly high. Decrease dose to 4 mg Mon, Tues and 2 mg all other days. Recheck in 1 week. * Yanely Posadas RN - 05/19/2022 2:34 PM EST patient had inr completed at [facility] patients inr is 3.2 (patients inr [...] on 05/26/22 documented in this encounterUniversity Hospitals Ahuja [facility] Center12-14-2022 History of Present illness Narrative* Elisabeth Shannon RN - 05/18/2022 11:15 AM EST INSIGHT CDM TELEPHONIC OUTREACH Provider Action/FYI: Patient seen at [facility] yesterday for rib pain from a [...] like to speak with a social work teamcenter consultant to help give you support for any [...] you up for automated weekly questionnaires through [employer]. This is an easy way for us [...] End outreach documented in this encounterUniversity Hospitals Ahuja Medical Center12-13-2022 Instructions* Patient Instructions* Shannon Chiu APRN.CNP - 05/17/2022 3:25 PM EST Warm compresses Encourage deep breathing. Tylenol as needed for pain Follow up with PCP as needed documented in this encounterUniversity Hospitals Ahuja Medical Center12-13-2022 History of Present illness Narrative* [...] 17, 2022 2:51 PM documented in this [facility]12-13-2022 History of Present illness Narrative* Shannon Chiu APRN.CNP - 05/17/2022 2:38 PM EST Images from the original note were not included. Subjective The history is provided by the patient. No language asst was used. HPI Libra Ceja is a [...] No PAST MEDICAL HISTORY Diagnosis Date A-fib ([facility]) Class 1 congestive heart failure, unspecified failure chronicity, systolic ([facility]) 11/21/2019 Dysphagia, unspecified(787.20) Esophageal reflux Esophagitis, unspecified Marfan's syndrome Moderate mitral regurgitation 06/18/2021 04/27/21 Echo at [facility]. Pleural effusion, right 05/05/2020 CXR 11/18/19 and 05/04/20. Unspecified essential hypertension I have confirmed and edited as necessary, the [facility] Review of Systems Constitutional: Negative for [...] study. Interpreted by : MD Shannon WHALEN APRN.HOT SAW OPERATOR documented in this encounterUniversity Hospitals Ahuja Medical Center12-13-2022 History of Present illness Narrative* [...] 2:04 PM documented in this encounterUniversity Hospitals Ahuja [facility] Center11-22-2022 History of Present illness Narrative* [...] like to speak with a social work teamcenter consultant to help give you support for any [...] you up for automated weekly questionnaires through [employer]. This is an easy way for us [...] End outreach. documented in this encounterUniversity Hospitals Ahuja [facility] Center11-16-2022 Miscellaneous Notes* Telephone Encounter - Alma Delia Doyle RN - 04/20/2022 9:01 AM EST Patient notified of message below. Alma Delia Doyle RN * Telephone Encounter - Christopher Bonilla MD - 04/20/2022 8:37 AM EST Anemia is better. Kidney function slightly reduced. Cholesterol up slightly. Watch cholesterol in the diet. Recheck bmp in two weeks. documented in this encounterUniversity Hospitals Ahuja [facility] Center11-15-2022 Miscellaneous Notes* Telephone Encounter - [...] Protime 22.1 documented in this encounterUniversity Hospitals Ahuja Medical Center11-15-2022 History of Past illness Narrative* Problem Noted Date Resolved Date Renal infarct 04/19/2022 07/26/2022 Overview: Has seen Dr. Chaney. Needs to just follow up prn. Pleural effusion 01/31/2022 04/19/2022 Encounter for support and coordination of transi tion of care 07/20/2021 07/26/2022 Overview: Facility: [facility] Date of admission 07/14/2021 Date of discharge Prehospital work-up: Presented to 07/14/2021 to [facility] ED complaining of left-sided abdominal pain with multiple symptoms including cough, myalgias, nasal congestion, low dietary intake due to concerns that would aggravate stomach ache. Patient was exposed to Covid 2 weeks prior, unvaccinated. Vital signs: 98.3 [id number]/102-93% RA. Exam description: Tired, alert and nontoxic, [...] he could be done outpatient. 07/15/[address] Dwayne Garcia: Assessment right pleural effusion: Continue diuretic therapy, empiric antimicrobials, thoracentesis recommended, eventual right heart cath work and secondary work-up for pH outpatient basis. 07/15/2021 echocardiogram: LV size and LV SF WNL, EF 60 to 65%. RV normal size and RV SF EF. Left atrium moderately enlarged, right atrium mildly enlarged. MV: Moderate mitral annular calcification, 1-2+ ME. TV: Normal. AV: Diffuse aortic valve calcification. [...] encounter (statuses as of 07/28/2022) [facility] History of Past illness Narrative* Problem Noted Date Resolved Date Renal infarct 04/19/2022 07/26/2022 Overview: Has seen Dr. Chaney. Needs to just follow up prn. Pleural effusion 01/31/2022 04/19/2022 Encounter for support and coordination of transi tion of care 07/20/2021 07/26/2022 Overview: Facility: [facility] Date of admission 07/14/2021 Date of discharge Prehospital work-up: Presented to 07/14/2021 to [facility] ED complaining of left-sided abdominal pain with multiple symptoms including cough, myalgias, nasal congestion, low dietary intake due to concerns that would aggravate stomach ache. Patient was exposed to Covid 2 weeks prior, unvaccinated. Vital signs: 98.3 [id number]/102-93% RA. Exam description: Tired, alert and nontoxic, [...] he could be done outpatient. 07/15/2021 consultation cook [facility] Dr. Dwayne Garcia: Assessment right pleural effusion: Continue diuretic therapy, empiric antimicrobials, thoracentesis recommended, eventual right heart cath work and secondary work-up for pH outpatient basis. 07/15/2021 echocardiogram: LV size and LV SF WNL, EF 60 to 65%. RV normal size and RV SF EF. Left atrium moderately enlarged, right atrium mildly enlarged. MV: Moderate mitral annular calcification, 1-2+ ME. TV: Normal. AV: Diffuse aortic valve calcification. [...] encounter (statuses as of 08/19/2022) [facility] History of Past illness Narrative* Problem Noted Date Resolved Date Renal infarct 04/19/2022 07/26/2022 Overview: Has seen Dr. Chaney. Needs to just follow up prn. Pleural effusion 01/31/2022 04/19/2022 Encounter for support and coordination of transi tion of care 07/20/2021 07/26/2022 Overview: Facility: [facility] Date of admission 07/14/2021 Date of discharge Prehospital work-up: Presented to 07/14/2021 to [facility] ED complaining of left-sided abdominal pain with multiple symptoms including cough, myalgias, nasal congestion, low dietary intake due to concerns that would aggravate stomach ache. Patient was exposed to Covid 2 weeks prior, unvaccinated. Vital signs: 98.3 [id number]/102-93% RA. Exam description: Tired, alert and nontoxic, [...] he could be done outpatient. 07/15/[address] Dwayne Garcia: Assessment right pleural effusion: Continue diuretic therapy, empiric antimicrobials, thoracentesis recommended, eventual right heart cath work and secondary work-up for pH outpatient basis. 07/15/2021 echocardiogram: LV size and LV SF WNL, EF 60 to 65%. RV normal size and RV SF EF. Left atrium moderately enlarged, right atrium mildly enlarged. MV: Moderate mitral annular calcification, 1-2+ ME. TV: Normal. AV: Diffuse aortic valve calcification. [...] encounter (statuses as of 08/23/2022) [facility] History of Past illness Narrative* Problem Noted Date Resolved Date Renal infarct 04/19/2022 07/26/2022 Overview: Has seen Dr. Chaney. Needs to just follow up prn. Pleural effusion 01/31/2022 04/19/2022 Encounter for support and coordination of transi tion of care 07/20/2021 07/26/2022 Overview: Facility: [facility] Date of admission 07/14/2021 Date of discharge Prehospital work-up: Presented to 07/14/2021 to [facility] ED complaining of left-sided abdominal pain with multiple symptoms including cough, myalgias, nasal congestion, low dietary intake due to concerns that would aggravate stomach ache. Patient was exposed to Covid 2 weeks prior, unvaccinated. Vital signs: 98.3 [id number]/102-93% RA. Exam description: Tired, alert and nontoxic, [...] he could be done outpatient. 07/15/[address] Dwayne Garcia: Assessment right pleural effusion: Continue diuretic therapy, empiric antimicrobials, thoracentesis recommended, eventual right heart cath work and secondary work-up for pH outpatient basis. 07/15/2021 echocardiogram: LV size and LV SF WNL, EF 60 to 65%. RV normal size and RV SF EF. Left atrium moderately enlarged, right atrium mildly enlarged. MV: Moderate mitral annular calcification, 1-2+ ME. TV: Normal. AV: Diffuse aortic valve calcification. [...] encounter (statuses as of 08/29/2022) [facility] History of Past illness Narrative* Problem Noted Date Resolved Date Renal infarct 04/19/2022 07/26/2022 Overview: Has seen Dr. Chaney. Needs to just follow up prn. Pleural effusion 01/31/2022 04/19/2022 Encounter for support and coordination of transi tion of care 07/20/2021 07/26/2022 Overview: Facility: [facility] Date of admission 07/14/2021 Date of discharge Prehospital work-up: Presented to 07/14/2021 to [facility] ED complaining of left-sided abdominal pain with multiple symptoms including cough, myalgias, nasal congestion, low dietary intake due to concerns that would aggravate stomach ache. Patient was exposed to Covid 2 weeks prior, unvaccinated. Vital signs: 98.3 [id number]/102-93% RA. Exam description: Tired, alert and nontoxic, [...] he could be done outpatient. 07/15/[address] Dwayne Garcia: Assessment right pleural effusion: Continue diuretic therapy, empiric antimicrobials, thoracentesis recommended, eventual right heart cath work and secondary work-up for pH outpatient basis. 07/15/2021 echocardiogram: LV size and LV SF WNL, EF 60 to 65%. RV normal size and RV SF EF. Left atrium moderately enlarged, right atrium mildly enlarged. MV: Moderate mitral annular calcification, 1-2+ ME. TV: Normal. AV: Diffuse aortic valve calcification. [...] encounter (statuses as of 09/01/2022) [facility] History of Past illness Narrative* Problem Noted Date Resolved Date Renal infarct 04/19/2022 07/26/2022 Overview: Has seen Dr. Chaney. Needs to just follow up prn. Pleural effusion 01/31/2022 04/19/2022 Encounter for support and coordination of transi tion of care 07/20/2021 07/26/2022 Overview: Facility: [facility] Date of admission 07/14/2021 Date of discharge Prehospital work-up: Presented to 07/14/2021 to [facility] ED complaining of left-sided abdominal pain with multiple symptoms including cough, myalgias, nasal congestion, low dietary intake due to concerns that would aggravate stomach ache. Patient was exposed to Covid 2 weeks prior, unvaccinated. Vital signs: 98.3 [id number]/102-93% RA. Exam description: Tired, alert and nontoxic, [...] he could be done outpatient. 07/15/[address] Dwayne Garcia: Assessment right pleural effusion: Continue diuretic therapy, empiric antimicrobials, thoracentesis recommended, eventual right heart cath work and secondary work-up for pH outpatient basis. 07/15/2021 echocardiogram: LV size and LV SF WNL, EF 60 to 65%. RV normal size and RV SF EF. Left atrium moderately enlarged, right atrium mildly enlarged. MV: Moderate mitral annular calcification, 1-2+ ME. TV: Normal. AV: Diffuse aortic valve calcification. [...] encounter (statuses as of 09/19/2022) [facility] History of Past illness Narrative* Problem Noted Date Resolved Date Renal infarct 04/19/2022 07/26/2022 Overview: Has seen Dr. Chaney. Needs to just follow up prn. Pleural effusion 01/31/2022 04/19/2022 Encounter for support and coordination of transi tion of care 07/20/2021 07/26/2022 Overview: Facility: [facility] Date of admission 07/14/2021 Date of discharge Prehospital work-up: Presented to 07/14/2021 to [facility] ED complaining of left-sided abdominal pain with multiple symptoms including cough, myalgias, nasal congestion, low dietary intake due to concerns that would aggravate stomach ache. Patient was exposed to Covid 2 weeks prior, unvaccinated. Vital signs: 98.3 [id number]/102-93% RA. Exam description: Tired, alert and nontoxic, [...] he could be done outpatient. 07/15/[address] Dwayne Garcia: Assessment right pleural effusion: Continue diuretic therapy, empiric antimicrobials, thoracentesis recommended, eventual right heart cath work and secondary work-up for pH outpatient basis. 07/15/2021 echocardiogram: LV size and LV SF WNL, EF 60 to 65%. RV normal size and RV SF EF. Left atrium moderately enlarged, right atrium mildly enlarged. MV: Moderate mitral annular calcification, 1-2+ ME. TV: Normal. AV: Diffuse aortic valve calcification. [...] Referral/follow-up: Dr. 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 Chaney. Needs to just follow up prn. Pleural effusion 01/31/2022 04/19/2022 Encounter for support and coordination of transi tion of care 07/20/2021 07/26/2022 Overview: Facility: [facility] Date of admission 07/14/2021 Date of discharge Prehospital work-up: Presented to 07/14/2021 to [facility] ED complaining of left-sided abdominal pain with multiple symptoms including cough, myalgias, nasal congestion, low dietary intake due to concerns that would aggravate stomach ache. Patient was exposed to Covid 2 weeks prior, unvaccinated. Vital signs: 98.3 B-[id number]/102-93% RA. Exam description: Tired, alert and nontoxic, [...] he could be done outpatient. 07/15/[address] Dwayne Garcia: Assessment right pleural effusion: Continue diuretic therapy, empiric antimicrobials, thoracentesis recommended, eventual right heart cath work and secondary work-up for pH outpatient basis. 07/15/2021 echocardiogram: LV size and LV SF WNL, EF 60 to 65%. RV normal size and RV SF EF. Left atrium moderately enlarged, right atrium mildly enlarged. MV: Moderate mitral annular calcification, 1-2+ ME. TV: Normal. AV: Diffuse aortic valve calcification. [...] encounter (statuses as of 09/22/2022) [facility] History of Past illness Narrative* Problem Noted Date Resolved Date Renal infarct 04/19/2022 07/26/2022 Overview: Has seen Dr. Chaney. Needs to just follow up prn. Pleural effusion 01/31/2022 04/19/2022 Encounter for support and coordination of transi tion of care 07/20/2021 07/26/2022 Overview: Facility: [facility] Date of admission 07/14/2021 Date of discharge Prehospital work-up: Presented to 07/14/2021 to [facility] ED complaining of left-sided abdominal pain with multiple symptoms including cough, myalgias, nasal congestion, low dietary intake due to concerns that would aggravate stomach ache. Patient was exposed to Covid 2 weeks prior, unvaccinated. Vital signs: 98.3 Y-[id number]/102-93% RA. Exam description: Tired, alert and nontoxic, [...] he could be done outpatient. 07/15/[address] Dwayne Garcia: Assessment right pleural effusion: Continue diuretic therapy, empiric antimicrobials, thoracentesis recommended, eventual right heart cath work and secondary work-up for pH outpatient basis. 07/15/2021 echocardiogram: LV size and LV SF WNL, EF 60 to 65%. RV normal size and RV SF EF. Left atrium moderately enlarged, right atrium mildly enlarged. MV: Moderate mitral annular calcification, 1-2+ ME. TV: Normal. AV: Diffuse aortic valve calcification. [...] encounter (statuses as of 09/23/2022) [facility] History of Past illness Narrative* Problem Noted Date Resolved Date Renal infarct 04/19/2022 07/26/2022 Overview: Has seen Dr. Chaney. Needs to just follow up prn. Pleural effusion 01/31/2022 04/19/2022 Encounter for support and coordination of transi tion of care 07/20/2021 07/26/2022 Overview: Facility: [facility] Date of admission 07/14/2021 Date of discharge Prehospital work-up: Presented to 07/14/2021 to [facility] ED complaining of left-sided abdominal pain with multiple symptoms including cough, myalgias, nasal congestion, low dietary intake due to concerns that would aggravate stomach ache. Patient was exposed to Covid 2 weeks prior, unvaccinated. Vital signs: 98.3 S-[id number]/102-93% RA. Exam description: Tired, alert and nontoxic, [...] he could be done outpatient. 07/15/[address] Dwayne Garcia: Assessment right pleural effusion: Continue diuretic therapy, empiric antimicrobials, thoracentesis recommended, eventual right heart cath work and secondary work-up for pH outpatient basis. 07/15/2021 echocardiogram: LV size and LV SF WNL, EF 60 to 65%. RV normal size and RV SF EF. Left atrium moderately enlarged, right atrium mildly enlarged. MV: Moderate mitral annular calcification, 1-2+ ME. TV: Normal. AV: Diffuse aortic valve calcification. [...] encounter (statuses as of 09/23/2022) [facility] History of Past illness Narrative* Problem Noted Date Resolved Date Renal infarct 04/19/2022 07/26/2022 Overview: Has seen Dr. Chaney. Needs to just follow up prn. Pleural effusion 01/31/2022 04/19/2022 Encounter for support and coordination of transi tion of care 07/20/2021 07/26/2022 Overview: Facility: [facility] Date of admission 07/14/2021 Date of discharge Prehospital work-up: Presented to 07/14/2021 to [facility] ED complaining of left-sided abdominal pain with multiple symptoms including cough, myalgias, nasal congestion, low dietary intake due to concerns that would aggravate stomach ache. Patient was exposed to Covid 2 weeks prior, unvaccinated. Vital signs: 98.3 S-408-61-143/102-93% RA. Exam description: Tired, alert and nontoxic, [...] he could be done outpatient. 07/15/[address] Dwayne Garcia: Assessment right pleural effusion: Continue diuretic therapy, empiric antimicrobials, thoracentesis recommended, eventual right heart cath work and secondary work-up for pH outpatient basis. 07/15/2021 echocardiogram: LV size and LV SF WNL, EF 60 to 65%. RV normal size and RV SF EF. Left atrium moderately enlarged, right atrium mildly enlarged. MV: Moderate mitral annular calcification, 1-2+ ME. TV: Normal. AV: Diffuse aortic valve calcification. [...] 24-hour: 1 capsule daily Referral/follow-up: Dr. Flaquito Mareie pulmonology 2 weeks Thoracic aorta atherosclerosis 03/23/2020 0 09/23/2020 Chronic systolic heart failure 11/21/2019 0 09/23/2020 Fatigue 11/24/2016 10/10/2017 Atrial fibrillation 01/14/2014 10/10/2017 Multiple thyroid nodules 03/03/2011 021 Hypertension 01/19/2011 06/23/2015 Esophagitis, unspecified 01/13/2009 018 Gastrointestinal malfunction arising from mental factors 12/09/2008 10/10/2017 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 Dysphagia, unspecified(787.20) 1 07/09/2017 documented as of this encounter (statuses as of 09/27/2022) [facility] History of Past illness Narrative* Problem Noted Date Resolved Date Renal infarct 04/19/2022 07/26/2022 Overview: Has seen Dr. Chaney. Needs to just follow up prn. Pleural effusion 01/31/2022 04/19/2022 Encounter for support and coordination of transi tion of care 07/20/2021 07/26/2022 Overview: Facility: [facility] Date of admission 07/14/2021 Date of discharge Prehospital work-up: Presented to 07/14/2021 to [facility] ED complaining of left-sided abdominal pain with multiple symptoms including cough, myalgias, nasal congestion, low dietary intake due to concerns that would aggravate stomach ache. Patient was exposed to Covid 2 weeks prior, unvaccinated. Vital signs: 98.3 B-[id number]/102-93% RA. Exam description: Tired, alert and nontoxic, [...] he could be done outpatient. 07/15/[address] Dwayne Garcia: Assessment right pleural effusion: Continue diuretic therapy, empiric antimicrobials, thoracentesis recommended, eventual right heart cath work and secondary work-up for pH outpatient basis. 07/15/2021 echocardiogram: LV size and LV SF WNL, EF 60 to 65%. RV normal size and RV SF EF. Left atrium moderately enlarged, right atrium mildly enlarged. MV: Moderate mitral annular calcification, 1-2+ ME. TV: Normal. AV: Diffuse aortic valve calcification. [...] encounter (statuses as of 09/29/2022) [facility] History of Past illness Narrative* Problem Noted Date Resolved Date Renal infarct 04/19/2022 07/26/2022 Overview: Has seen Dr. Chaney. Needs to just follow up prn. Pleural effusion 01/31/2022 04/19/2022 Encounter for support and coordination of transi tion of care 07/20/2021 07/26/2022 Overview: Facility: [facility] Date of admission 07/14/2021 Date of discharge Prehospital work-up: Presented to 07/14/2021 to [facility] ED complaining of left-sided abdominal pain with multiple symptoms including cough, myalgias, nasal congestion, low dietary intake due to concerns that would aggravate stomach ache. Patient was exposed to Covid 2 weeks prior, unvaccinated. Vital signs: 98.3 W-[id number]/102-93% RA. Exam description: Tired, alert and nontoxic, [...] he could be done outpatient. 07/15/[address] Dwayne Garcia: Assessment right pleural effusion: Continue diuretic therapy, empiric antimicrobials, thoracentesis recommended, eventual right heart cath work and secondary work-up for pH outpatient basis. 07/15/2021 echocardiogram: LV size and LV SF WNL, EF 60 to 65%. RV normal size and RV SF EF. Left atrium moderately enlarged, right atrium mildly enlarged. MV: Moderate mitral annular calcification, 1-2+ ME. TV: Normal. AV: Diffuse aortic valve calcification. [...] encounter (statuses as of 10/07/2022) [facility] History of Past illness Narrative* Problem Noted Date Resolved Date Renal infarct 04/19/2022 07/26/2022 Overview: Has seen Dr. Chaney. Needs to just follow up prn. Pleural effusion 01/31/2022 04/19/2022 Encounter for support and coordination of transi tion of care 07/20/2021 07/26/2022 Overview: Facility: [facility] Date of admission 07/14/2021 Date of discharge Prehospital work-up: Presented to 07/14/2021 to [facility] ED complaining of left-sided abdominal pain with multiple symptoms including cough, myalgias, nasal congestion, low dietary intake due to concerns that would aggravate stomach ache. Patient was exposed to Covid 2 weeks prior, unvaccinated. Vital signs: 98.3 [id number]-[id number]/102-93% RA. Exam description: Tired, alert and nontoxic, [...] he could be done outpatient. 07/15/[address] Dwayne Garcia: Assessment right pleural effusion: Continue diuretic therapy, empiric antimicrobials, thoracentesis recommended, eventual right heart cath work and secondary work-up for pH outpatient basis. 07/15/2021 echocardiogram: LV size and LV SF WNL, EF 60 to 65%. RV normal size and RV SF EF. Left atrium moderately enlarged, right atrium mildly enlarged. MV: Moderate mitral annular calcification, 1-2+ ME. TV: Normal. AV: Diffuse aortic valve calcification. [...] encounter (statuses as of 10/14/2022) [facility] History of Past illness Narrative* [...] care 07/20/2021 07/26/2022 Overview: Facility: [facility] Date of admission 07/14/2021 Date of discharge Prehospital work-up: Presented to 07/14/2021 to [facility] ED complaining of left-sided abdominal pain with multiple symptoms including cough, myalgias, nasal congestion, low dietary intake due to concerns that would aggravate stomach ache. Patient was exposed to Covid 2 weeks prior, unvaccinated. Vital signs: 98.3 I-[id number]/102-93% RA. Exam description: Tired, alert and nontoxic, [...] he could be done outpatient. 07/15/[address] Dwayne Garcia: Assessment right pleural effusion: Continue diuretic therapy, empiric antimicrobials, thoracentesis recommended, eventual right heart cath work and secondary work-up for pH outpatient basis. 07/15/2021 echocardiogram: LV size and LV SF WNL, EF 60 to 65%. RV normal size and RV SF EF. Left atrium moderately enlarged, right atrium mildly enlarged. MV: Moderate mitral annular calcification, 1-2+ ME. TV: Normal. AV: Diffuse aortic valve calcification. [...] Atrial fibrillation 01/14/2014 10/11/19 18 Centrilobular emphysema 01/14/2014 06/0 11/2022 Multiple thyroid nodules 03/03/2011 Hypertension 01/19/2011 06/23/2015 Esophagitis, unspecified 01/13/200901/2018 Gastrointestinal malfunction arising from mental factors 12/09/2008 10/10/2017 Nontoxic multinodular goiter 12/08/2008 05/08/2018 Dysphagia, unspecified(787.20) 05/08/2018 documented as of this encounter (statuses as of 04/09/2023) [facility] History of Past illness Narrative* [...] care 07/20/2021 07/26/2022 Overview: Facility: [facility] Date of admission 07/14/2021 Date of discharge Prehospital work-up: Presented to 07/14/2021 to [facility] ED complaining of left-sided abdominal pain with multiple symptoms including cough, myalgias, nasal congestion, low dietary intake due to concerns that would aggravate stomach ache. Patient was exposed to Covid 2 weeks prior, unvaccinated. Vital signs: 98.3 B-[id number]/102-93% RA. Exam description: Tired, alert and nontoxic, [...] he could be done outpatient. 07/15/[address] Dwayne Garcia: Assessment right pleural effusion: Continue diuretic therapy, empiric antimicrobials, thoracentesis recommended, eventual right heart cath work and secondary work-up for pH outpatient basis. 07/15/2021 echocardiogram: LV size and LV SF WNL, EF 60 to 65%. RV normal size and RV SF EF. Left atrium moderately enlarged, right atrium mildly enlarged. MV: Moderate mitral annular calcification, 1-2+ ME. TV: Normal. AV: Diffuse aortic valve calcification. [...] encounter (statuses as of 04/09/2023) [facility] History of Past illness Narrative* [...] care 07/20/2021 07/26/2022 Overview: Facility: [facility] Date of admission 07/14/2021 Date of discharge Prehospital work-up: Presented to 07/14/2021 to [facility] ED complaining of left-sided abdominal pain with multiple symptoms including cough, myalgias, nasal congestion, low dietary intake due to concerns that would aggravate stomach ache. Patient was exposed to Covid 2 weeks prior, unvaccinated. Vital signs: 98.3 T-[id number]/102-93% RA. Exam description: Tired, alert and nontoxic, [...] he could be done outpatient. 07/15/[address] Dwayne Garcia: Assessment right pleural effusion: Continue diuretic therapy, empiric antimicrobials, thoracentesis recommended, eventual right heart cath work and secondary work-up for pH outpatient basis. 07/15/2021 echocardiogram: LV size and LV SF WNL, EF 60 to 65%. RV normal size and RV SF EF. Left atrium moderately enlarged, right atrium mildly enlarged. MV: Moderate mitral annular calcification, 1-2+ ME. TV: Normal. AV: Diffuse aortic valve calcification. [...] encounter (statuses as of 04/09/2023) [facility] History of Present illness Narrative* [...] Moderate mitral regurgitation 06/18/2021 04/27/21 Echo at [facility]. Pleural effusion, right 05/05/2020 CXR [...] 110/56 Pulse 61 Ht 154.9 cm (5' 1) Wt 61.1 kg (134 lb 9.6 oz) [...] or prn [facility] History of Present illness Narrative* Elisabeth Shannon RN - 04/19/2022 9:38 AM EST PRIMARY CARE COORDINATION QUICK NOTE Provider Action/FYI Patient scheduled to see pcp today. Defer outreach one week. Patient identified by name and date . [facility] History of Present illness Narrative* Elisabeth Shannon RN - 04/05/2022 12:06 PM EDT INSIGHT [facility] TELEPHONIC OUTREACH Provider Action/FYI: Patient returned call to this nurse, reported she is doing good, has chest xray completed today forDr Kodi. Patient states she has not yet called [...] like to speak with a social work teamcenter consultant to help give you support for any [...] you up for automated weekly questionnaires through [employer]ell[employer]. This is an easy way for us [...] patient outreach date for the following business , if third call please enter next outreach date for one week in the Track Pt. Outreach - End Outreach documented in this encounterUniversity Hospitals Ahuja Medical Center10-25-2022 History of Present illness Narrative* Jason Gallegos DO - 03/29/2022 3:06 PM EDT Agree with below Jason Gallegos DO * Yanely Posadas RN - 03/29/2022 2:41 PM EDT patient had inr completed at [facility] patients inr is 2.1 (patients inr [...] dose change documented in this encounterUniversity Hospitals Ahuja Medical Center10-20-2022 History of Present illness Narrative* Elisabeth Shannon RN - 03/24/2022 10:49 AM EDT INSIGHT [...] office. Patient states her BP has been good, has not checked recently but at 03/15 [...] like to speak with a social work teamcenter consultant to help give you support for any [...] you up for automated weekly questionnaires through [employer]ell[employer]. This is an easy way for us [...] End outreach. documented in this encounterUniversity Hospitals Ahuja Medical Center10-18-2022 History of Present illness Narrative* Elisabeth Shannon RN - 03/22/2022 11:35 AM EDT INSIGHT CDM TELEPHONIC OUTREACH Provider Action/FYI: Contact made with patient: No - Left message Hello my name is Elisabeth Shannon RN your Bpm Solution Architect from the [facility] I am calling today for your bi-weekly check in. I am sorry I missed your call. I will reach out to you again tomorrow. (if the third call I will reach out to you again next week) Enter next patient outreach date for the following day using the Track Pt Outreach. End outreach. documented in this [facility]10-11-2022 Miscellaneous Notes* Telephone Encounter - Yanely Posadas RN - 03/15/2022 4:01 PM EDT patients orders for coumadin clinic inr's has at this time. new order has been pended for approval if possible so that patient can continue to get inr's completed thru the coumadin clinic. coumadin clinic nurse only needs called if order can not be approved. documented in this [facility]10-11-2022 Instructions* Patient Instructions* Myah Mehta PA-C - 03/15/2022 2:52 PM EDT Take extra 2mg coumadin today, recheck INR in 1 week. documented in this [facility]10-11-2022 History of Present illness Narrative* Myah Mehta [...] Emphysema PAST MEDICAL HISTORY Diagnosis Date A-fib ([facility]) Class 1 congestive heart failure, unspecified failure chronicity, systolic ([facility]) 11/21/2019 Dysphagia, unspecified(787.20) Esophageal reflux Esophagitis, unspecified Marfan's syndrome Moderate mitral regurgitation 06/18/2021 04/27/21 Echo at [facility]. Pleural effusion, right 05/05/2020 CXR [...] resolved Myah Mehta PA-C documented in this encounterUniversity Hospitals Ahuja Medical Center10-04-2022 Miscellaneous Notes* Telephone Encounter - Tia Harding RN - 03/08/2022 11:12 AM EDT Eddie Bonilla Pt was discharged from home health on 03/04/22 with goals met. [facility] Thank you for following this home health pt. documented in this encounterUniversity Hospitals Ahuja Medical Center10-04-2022 Miscellaneous Notes* Telephone Encounter - [...] date . documented in this encounterUniversity Hospitals Ahuja Medical Center10-04-2022 History of Present illness Narrative* Elisabeth Shannon RN - 03/08/2022 10:19 AM EDT INSIGHT CD TELEPHONIC OUTREACH Provider Action/FYI: Patient reports she [...] like to speak with a social work teamcenter consultant to help give you support for any [...] you up for automated weekly questionnaires through [employer]. This is an easy way for us [...] End outreach. documented in this encounterUniversity Hospitals Ahuja Medical Center09-30-2022 Miscellaneous Notes* SN Agency DC - Tia Harding RN - [...] medical questions/concerns. documented in this encounterUniversity Hospitals Ahuja Medical Center09-29-2022 Miscellaneous Notes* Telephone Encounter - [...] narrative: no documented in this encounterUniversity Hospitals Ahuja Medical Center09-28-2022 Miscellaneous Notes* HH SN Routine [...] [facility] NOMNC reviewed and signed by pt today. See intervention summary for education details. Patient demonstrated a need for further skilled SN services for agency dc by phone. Current Discharge plan: self-care and family support RECOMMENDATION: Next visit to focus on (be specific): NA, will plan a telephone dc on 03/04/22. documented in this encounterUniversity Hospitals Ahuja Medical Center09-23-2022 Miscellaneous Notes* CARE COORDINATION - Manju Larson PT - 02/25/2022 8:30 AM EDT PT visits denied by insurace Contacted pt and MD to notify message sent to SN documented in this encounterUniversity Hospitals Ahuja Medical Center09-22-2022 Miscellaneous Notes* SN Routine - [...] and instruction. documented in this encounterUniversity Hospitals Ahuja Medical Center2022 Miscellaneous Notes* Telephone Encounter - [...] - 02/23/2022 1:27 PM EDT Yanely Hassan [facility] called in and reports they [...] Please advise. documented in this encounterUniversity Hospitals Ahuja Medical Center09-20-2022 Miscellaneous Notes* Telephone Encounter - Gemma Machado PTA - 02/22/2022 1:34 PM EDT We are waiting on insurance authorization to come through for home care PT. Patient requested to hold on PT visits until authorization is received. documented in this encounterUniversity Hospitals Ahuja Medical Center09-20-2022 History of Present illness Narrative* [...] like to speak with a social work teamcenter consultant to help give you support for any [...] you up for automated weekly questionnaires through [employer]. This is an easy way for us [...] End outreach. documented in this encounterUniversity Hospitals Ahuja Medical Center09-19-2022 Miscellaneous Notes* CARE COORDINATION - Gemma Machado PTA - 02/21/2022 1:22 PM EDT PT contacted patient on 02/21/22 for the following: to explain that insurance authorization for PT ispending. Patient voiced understanding and requested to hold on any further PT visits until authorization is received. New orders: None Follow up needed: None documented in this encounterUniversity Hospitals Ahuja Medical Center09-16-2022 Miscellaneous Notes* PT ROUTINE/REASSESSMENT/RECERT/CASE MGMT - Manju Larson, PT - 02/18/2022 1:11 PM EDT SITUATION: family home during visit but remained in other rooms during visit . patient reports the following since the last homecare visit: medications/allergies--no changes, no fall. patient rreports that she is feeling a little stronger BACKGROUND: Diagnoses (reason for Home Care): Hosp 01/25- at [facility] then transferred to [facility] 01/31-or Pleural effusion, right and Paroxysmal [...] intervention/education details. documented in this encounterUniversity Hospitals Ahuja Medical Center09-15-2022 Miscellaneous Notes* Telephone Encounter - [...] narrative: no documented in this encounterUniversity Hospitals Ahuja Medical Center09-13-2022 Miscellaneous Notes* Telephone Encounter - [...] your review of this information. Erik Hassan RN-[facility]. documented in this encounterUniversity Hospitals Ahuja Medical Center09-13-2022 Miscellaneous Notes* SN Routine - [...] specific): PT/INR documented in this encounterUniversity Hospitals Ahuja Medical Center09-13-2022 Miscellaneous Notes* PT ROUTINE/REASSESSMENT/RECERT/CASE MGMT [...] (reason for Home Care): Hosp 01/25- at [facility] then transferred to [facility] 01/31-02/06 for Pleuraleffusion, right and Paroxysmal [...] intervention/education details. 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 She has seen both our pulmonary department as well as across the street. We need her to follow up with whichever one she wants to follow with. (Has appt to see cardiology already_ Can we fax labs and xray to [facility]-I think she is seeing them today documented in this encounterUniversity Hospitals Ahuja Medical Center09-09-2022 Miscellaneous Notes* PT EVALUATION - Manju Larson, PT - 02/11/2022 10:41 AM EDT SITUATION: PT evaluation, only patient present during today's visit. patient reports the following since the last homecare visit: medications/allergies--no changes, no fall. BACKGROUND: Hosp 01/25- at [facility] then transferred to [facility] 01/31-02/06 for Pleural effusion, right and Paroxysmal atrial fibrillation past medical history :Marfan's Syndrome Esophageal Reflux Hyperlipidemia History of Polymyalgia Rheumatica Centrilobular Emphysema Paroxysmal Atrial Fibrillation Hypertension, Essential Chronic Anticoagulation Lung Nodule Pleural Effusion, Right Prediabetes Pulmonary Hypertension Moderate Mitral Reg urgitation Pleural Effusion precautions fall risk Weight Bearing or Surgical Precautions: none ASSESSMENT: [facility]. Reviewed and [...] intervention/education details. documented in this encounterUniversity Hospitals Ahuja Medical Center09-08-2022 Miscellaneous Notes* Telephone Encounter - [...] Thank you, Maureen RN documented in this encounterUniversity Hospitals Ahuja Medical Center09-07-2022 Miscellaneous Notes* Telephone Encounter - [...] narrative: no documented in this encounterUniversity Hospitals Ahuja Medical Center09-07-2022 Miscellaneous Notes* Telephone Encounter - Cadence Bustillo LPN - 02/09/2022 4:55 PM EDT INR completed today. * Telephone Encounter - Jennifer Kimball Ma - 02/08/2022 4:33 PM EDT Call to pt and phone continuously rings and receive a message stating your constitution party is not answering,please try calling again later. Jennifer Kimball Ma * Telephone Encounter - Christopher Bonilla MD - 02/08/2022 4:27 PM EDT [...] Coleman RN documented in this encounterUniversity Hospitals Ahuja Medical Center09-07-2022 Miscellaneous Notes* SN SOC - [...] medication education documented in this encounterUniversity Hospitals Ahuja Medical Center09-07-2022 History of Present illness Narrative* Elisabeth Shannon RN - 02/09/2022 11:00 AM EDT INSIGHT CDM TELEPHONIC OUTREACH Provider Action/FYI: Patient states she is feeling better now that she is home, inpatient at [facility] 01/31/22 to 02/06/22, [facility] nurse will be at her house for SOC today. Patient states she will have INR drawn today after [facility] nurse is done, has follow [...] like to speak with a social work teamcenter consultant to help give you support for any [...] you up for automated weekly questionnaires through [employer]. This is an easy way for us [...] End outreach. documented in this encounterUniversity Hospitals Ahuja Medical Center09-06-2022 Miscellaneous Notes* Telephone Encounter - Kaley Armendariz - 02/08/2022 3:27 PM EDT Called PT no VM setup will attempt again. Thanks * Telephone Encounter - Christopher Bonilla MD - 02/08/2022 2:18 PM EDT Needs INR [place]. * Telephone Encounter - Deana Coleman RN - 02/08/2022 1:51 PM EDT Patient calls and states that she was discharged from [facility] on 02/06/2022. Patient states that her INR [...] Coleman RN documented in this encounterUniversity Hospitals Ahuja Medical Center09-06-2022 History of Present illness Narrative* [...] schedule this appointment? No Reason for Outreach [facility] Payer: Payor: [employer] MEDICARE / Plan: [employer] MEDICARE PPO / Product Type: PPO / Care Gap Reviewed:: Follow-up appointment Reminder: Reminder note to check Health Maintenance for items below Health Maintenance items due: INFLUENZA(1) due on 02/03/2022 Message Sent to Practice: No Vicki Christianson [facility] Health Navigator February 08, 2022 11:21 AM * Colleen Cardenas RN - 02/08/2022 10:29 AM EDT TRANSITIONAL CARE MANAGEMENT (TCM) COMMUNITY MONITORING PROGRAM TCM Home Visit Referral Source of Stratification: TCM Hub Hospital Admission Status: Discharged Readmission Risk Score: [...] care team. Thank you, Colleen Cardenas RN, PCC TCM HUB Transitions of Care Critical Issues: LAB MONITORING NEEDED: Repeat INR in 2-3 days LABS AND PROCEDURES PENDING AT DISCHARGE: No pending results. Patient reports she is a little weak but otherwise feeling better. Denies CP, SOB, palpitations, dizziness, fever, increased swelling, or any worsening SX Plans to call and schedule for repeat INR with [facility]in [facility] Agrees to call from [facility] for TCM appt. Reports she is up moving around with her walker. Provided with number for [facility] to return their call for SOC Reviewed CT site wound care. Dsg d/I Denies further concerns or questions. SUMMARY: Pt discharged from [place] on 02/06. Admitted for: Pleural effusion /parapneumonia effusion Contact made with patient: Yes Hi my name is Colleen Cardenas RN and I am calling from the [facility] on behalf of your PCP,Christopher Bonilla MD [...] Med adjustments only, per patient preference. See TCM pharmacy outreach. SOCIAL: We would like to make sure you have what you need so that your basics needs are met - including your personal safety, food, housing and medications. Would you like to speak with a social work teamcenter consultant to help give you support for any [...] I will send your request to a corporate webmaster who will contact and assist you with that appointment. This will give you an opportunity to ask any questions or address any concerns youmay have with your PCP. Inform the patient that if they have any questions or concerns prior to that appointment, to call their PCP's office right away. ACTION TAKEN: Patient desires an appointment - Routed to [facility] [[id number]] for schedulingtelehealth visit (telephonic, virtual visit, or [...] if possible). documented in this encounterUniversity Hospitals Ahuja Medical Center08-29-2022 History of Past illness Narrative* [...] of this encounter (statuses as of 04/19/2022) [address] History of Past illness Narrative* Problem [...] of this encounter (statuses as of 04/19/2022) [address] History of Past illness Narrative* Problem [...] encounter (statuses as of 04/19/2022) [facility] History of Past illness Narrative* [...] of this encounter (statuses as of 04/20/2022) [place] [address]22 History of Past illness Narrative* Problem Noted [...] of this encounter (statuses as of 04/26/2022) [address]-[address]22 History of Past illness Narrative* Problem [...] of this encounter (statuses as of 05/17/2022) [address]29-[address]22 History of Past illness Narrative* Problem [...] of this encounter (statuses as of 05/18/2022) [address]22 History of Past illness Narrative* Problem [...] of this encounter (statuses as of 05/19/2022) [address]-[address]22 History of Past illness Narrative* Problem [...] of this encounter (statuses as of 05/21/2022) [place] [address]22 History of Past illness Narrative* Problem Noted [...] of this encounter (statuses as of 05/27/2022) [address]22 History of Past illness Narrative* Problem [...] of this encounter (statuses as of 06/08/2022) [facility] of Past illness Narrative* [...] of this encounter (statuses as of 06/21/2022) [address]22 History of Past illness Narrative* Problem [...] of this encounter (statuses as of 06/29/2022) [facility] of Past illness Narrative* [...] of this encounter (statuses as of 06/30/2022) [facility] of Past illness Narrative* [...] of this encounter (statuses as of 07/04/2022) [place] [address] History of Past illness Narrative* Problem Noted [...] of this encounter (statuses as of 07/04/2022) [facility] of Past illness Narrative* [...] of this encounter (statuses as of 07/07/2022) [place] [address] History of Past illness Narrative* Problem Noted [...] of this encounter (statuses as of 07/07/2022) [address]22 History of Past illness Narrative* Problem [...] of this encounter (statuses as of 07/11/2022) [facility] of Past illness Narrative* [...] encounter (statuses as of 07/21/2022) [facility] History of Present illness Narrative* Joleen Delcid MD - 01/14/2022 4:10 PM EDT I agree with the advice given; stay same and recheck in 1 month Joleen Delcid MD * Yanely Posadas RN - 01/14/2022 1:24 PM EDT patient had inr completed at [facility] patients inr is 2.0 (patients inr [...] up INR. documented in this encounterUniversity Hospitals Ahuja Medical Center08-12-2022 Instructions* Patient Instructions* Dalila Jensen APRN.CNP - 01/14/2022 2:05 PM EDT Continue the same medication. 2. Recheck in 3 months. 3. Get fasting labwork prior to next appt. documented in this encounterUniversity Hospitals Ahuja Medical Center08-12-2022 History of Present illness Narrative* [...] HISTORY: PAST MEDICAL HISTORY Diagnosis Date A-fib ([facility]) Class 1 congestive heart failure, unspecified failure chronicity, systolic ([facility]) 11/21/2019 Dysphagia, unspecified(787.20) Esophageal reflux Esophagitis, unspecified Marfan's syndrome Moderate mitral regurgitation 06/18/2021 04/27/21 Echo at [facility]. Pleural effusion, right 05/05/2020 CXR [...] (COUMADIN) 4 mg tablet 4 mg on M/, 2 mg all other days or as [...] APRN.TRICIA This note was partially generated using Vine voice recognition system. Note was reviewed for accuracy. There may be minor misspellings or grammar miscues with Vine voice recognition. documented in this encounterUniversity Hospitals Ahuja Medical Center08-03-2022 History of Present illness Narrative* Elisabeth Shannon RN - 01/05/2022 9:18 AM EDT INSIGHT [facility] TELEPHONIC OUTREACH Provider Action/FYI: No concerns at [...] like to speak with a social work teamcenter consultant to help give you support for any [...] you up for automated weekly questionnaires through [employer]. This is an easy way for us [...] End outreach. documented in this encounterUniversity Hospitals Ahuja Medical Center07-18-2022 History of Present illness Narrative* Elisabeth Shannon RN - 12/20/2021 2:13 PM EDT INSIGHT [...] like to speak with a social work teamcenter consultant to help give you support for any [...] you up for automated weekly questionnaires through [employer]. This is an easy way for us [...] End outreach. documented in this encounterUniversity Hospitals Ahuja Medical Center07-18-2022 Miscellaneous Notes* Telephone Encounter - [...] 12/16/2021 2.7 Please advise. Thank you. Airam Ayon RN documented in this encounterUniversity Hospitals Ahuja Medical Center07-14-2022 History of Present illness Narrative* Christopher Bonilla MD - 12/16/2021 2:36 PM EDT agree * Yanely Posadas RN - 12/16/2021 2:06 PM EDT patient had inr completed at [facility] patients inr is 2.7 (patients inr [...] up INR. documented in this encounterUniversity Hospitals Ahuja Medical Center06-16-2022 History of Present illness Narrative* Christopher Bonilla MD - 11/18/2021 1:43 PM EDT agree * Yanely Posadas RN - 11/18/2021 1:24 PM EDT patient had inr completed at [facility] patients inr is 2.6 (patients inr [...] up INR. documented in this encounterUniversity Hospitals Ahuja Medical Center06-07-2022 History of Present illness Narrative* [...] like to speak with a social work teamcenter consultant to help give you support for any [...] you up for automated weekly questionnaires through [employer]. This is an easy way for us [...] End outreach. documented in this encounterUniversity Hospitals Ahuja Medical Center06-06-2022 History of Present illness Narrative* Elisabeth Shannon RN - 11/08/2021 3:04 PM EDT INSIGHT CDM TELEPHONIC OUTREACH Provider Action/FYI: Contact made with patient: No - Left message Hello my name is Elisabeth Shannon RN your Bpm Solution Architect [facility] the [facility] I am calling today for your bi-weekly check in. I am sorry I missed your call. I will reach out to you again tomorrow. (if the third call I will reach out to you again next week) Enter next patient outreach date for the following using the Track Pt Outreach. End outreach. documented in this encounterUniversity Hospitals Ahuja Medical Center05-31-2022 History of Present illness Narrative* Christopher Bonilla MD - 11/02/2021 2:14 PM EDT agree * Yanely Posadas RN - 11/02/2021 1:53 PM EDT patient had inr completed at [facility] patients inr is 3.0 (patients inr [...] of normal documented in this encounterUniversity Hospitals Ahuja Medical Center05-23-2022 History of Present illness Narrative* Elisabeth Shannon RN - 10/25/2021 1:22 PM EDT PRIMARY CARE COORDINATION QUICK NOTE Provider Action/CAROLYN Spoke to pt, relayed message from pcp. Pt had no further questions, concerns, needs at this time. Patient identified by name and date . Elisabeth Shannon RN Manager Operations Research * Christopher Bonilla MD - 10/25/2021 1:10 [...] like to speak with a social work teamcenter consultant to help give you support for any [...] you up for automated weekly questionnaires through [employer]. This is an easy way for us [...] End outreach. documented in this encounterUniversity Hospitals Ahuja Medical Center05-16-2022 History of Present illness Narrative* Christopher Bonilla MD - 10/18/2021 1:16 PM EDT agree * Yanely Posadas RN - 10/18/2021 1:13 PM EDT patient had inr completed at [facility] patients inr is 2.2 (patients inr [...] dose change documented in this encounterUniversity Hospitals Ahuja Medical Center05-09-2022 History of Present illness Narrative* Debbie Long Ma - 10/11/2021 3:10 PM EDT Patient instructed of dosage with teach back method. Verbalizes understanding. * Chritsopher Bonilla MD - 10/11/2021 1:44 PM EDT Hold x 1 day, then begin 4 mg on M and F, 2 mg a day rest of the week. Recheck one week * Yanely Posadas RN - 10/11/2021 1:32 PM EDT patient had inr completed at [facility] patients inr is 3.5 (patients inr [...] on 10/18/21 documented in this encounterUniversity Hospitals Ahuja Medical Center05-09-2022 Miscellaneous Notes* Telephone Encounter - Elisabeth Shannon RN - 10/11/2021 12:04 PM EDT Last OV 10/04/21 Next OV 01/04/22 Patient phones requesting refills as follows: Pending Prescriptions Disp Refills METOPROLOL TARTRATE 100 MG TABLET 180 tablet 3 Sig: Take 1 tablet by mouth twice daily. ERIN: No Please review and advise. Elisabeth Shannon RN documented in this encounterUniversity Hospitals Ahuja Medical Center05-09-2022 History of Present illness Narrative* [...] like to speak with a social work teamcenter consultant to help give you support for any [...] you up for automated weekly questionnaires through [employer]. This is an easy way for us [...] End outreach. documented in this encounterUniversity Hospitals Ahuja Medical Center05-04-2022 Miscellaneous Notes* Telephone Encounter - [...] two weeks. documented in this encounterUniversity Hospitals Ahuja Medical Center05-03-2022 Miscellaneous Notes* Telephone Encounter - [...] [facility]. documented in this encounterUniversity Hospitals Ahuja Medical Center05-02-2022 History of Present illness Narrative* Marjan Garces, RT(R) - 10/04/2021 3:20 PM EDT Radiology [...] 3:15 PM documented in this encounterUniversity Hospitals Ahuja [facility] Center05-02-2022 Instructions* Patient Instructions* Christopher Bonilla MD - 10/04/2021 2:52 PM EDT Hold coumadin today, then start 2 mg a day, except 4 mg on Monday, Mon, Monday. Recheck inr in one week documented in this encounterUniversity Hospitals Ahuja [facility] Center05-02-2022 History of Present illness Narrative* Christopher Bonilla MD - 10/04/2021 2:51 PM EDT Hold x 1 day, then 4 mg MWF, 2 mg a day rest of the week. Recheck one week. Patient notified. * Yanely Posadas RN - 10/04/2021 12:04 PM EDT patient had inr completed at [facility] patients inr is 4.2 (patients inr [...] on 10/11/21 documented in this encounterUniversity Hospitals Ahuja [facility] Center05-02-2022 History of Present illness Narrative* [...] See previous ov, copied and pasted from HPI on 08/25/21: Labs from last ov showed [...] Moderate mitral regurgitation 06/18/2021 04/27/21 Echo at [facility]. Pleural effusion, right 05/05/2020 CXR [...] and prn. documented in this encounterUniversity Hospitals Ahuja [facility] Center04-25-2022 History of Present illness Narrative* Elisabeth Shannon RN - 09/27/2021 12:01 PM EDT INSIGHT CDM [...] like to speak with a social work teamcenter consultant to help give you support for any [...] you up for automated weekly questionnaires through [employer]. This is an easy way for us [...] End outreach. documented in this encounterUniversity Hospitals Ahuja [facility] Center04-18-2022 Miscellaneous Notes* Telephone Encounter - [...] draw. Reports she no longer has a [facility] nurse. documented in this encounterUniversity Hospitals Ahuja [facility] Center04-14-2022 Miscellaneous Notes* Telephone Encounter - Debbie Long Ma - 09/16/2021 10:35 AM EDT Spoke with nurse at [facility] [employer]ist and relayed coumadin instructions and follow up. She will advise pt. Debbie Long Ma * Telephone Encounter - Christopher Bonilla MD - 09/16/2021 10:29 AM EDT 5 mg today, then starting tomorrow 4 mg THSS, 2 mg a day rest of the week. Recheck Monday * Telephone Encounter - Yolis Tran RN - 09/16/2021 10:19 AM EDT [facility] called and reports that Pt had [...] patient back. documented in this encounterUniversity Hospitals Ahuja Medical Center04-14-2022 Miscellaneous Notes* Telephone Encounter - [...] not there. documented in this encounterUniversity Hospitals Ahuja Medical Center04-07-2022 History of Present illness Narrative* Christopher Bonilla MD - 09/09/2021 5:18 PM EDT agree * Debbie Long Ma - 09/09/2021 2:56 PM EDT Patient notified today she is having a biopsy on . She was advised to hold coumadin for [address] Bonilla and advised she can hold now until procedure. * Christopher Bonlila MD - 09/09/2021 2:15 PM EDT Now high. Hold today and tomorrow. Really watch diet closely. Change to 2 mg a day, except 4 mg MWF. Recheck on Mon next week * Yanely Posadas RN - 09/09/2021 2:06 PM EDT patient had inr completed at [facility] patients inr is 4.6 (patients inr [...] next week documented in this encounterUniversity Hospitals Ahuja Medical Center03-29-2022 History of Present illness Narrative* [...] like to speak with a social work teamcenter consultant to help give you support for any [...] you up for automated weekly questionnaires through [employer]. This is an easy way for us [...] End outreach. documented in this encounterUniversity Hospitals Ahuja Medical Center03-23-2022 Miscellaneous Notes* Telephone Encounter - Cadence Bustillo LPN - 08/25/2021 5:35 PM EDT Patient was notified. * Telephone Encounter - Christopher Bonilla MD - 08/25/2021 5:25 PM EDT Same. Recheck two weeks. * Telephone Encounter - Cadence Bustillo LPN - 08/25/2021 5:01 PM EDT INR 2.9 Current dose 4mg TTSS and 2 mg all other days documented in this encounterUniversity Hospitals Ahuja Medical Center03-23-2022 Miscellaneous Notes* Telephone Encounter - [...] She is seeing Dr. Garcia pulmonary at [facility] now. Can we fax to them and see if they can get herback in soon. Call immediately if any worsening shortness of breath, cough or fever. documented in this encounterUniversity Hospitals Ahuja Medical Center03-23-2022 History of Present illness Narrative* Marjan Garces RT(R) - 08/25/2021 3:10 PM EDT Radiology [...] 3:12 PM documented in this encounterUniversity Hospitals Ahuja Medical Center03-03-2022 Miscellaneous Notes* Telephone Encounter - Nay Cottrell RN - 08/05/2021 9:53 AM EST Spoke to Evelyn with [facility]. Reviewed all lab orders provider is requesting as well as INR stat order. Evelyn verbalizes understanding. Nay Cottrell RN * Telephone Encounter - Myah Dunn RN - 08/05/2021 9:42 AM EST [facility]- phoned to confirm lab orders. Received all the orders except the INR. Reports nurseis at patient's home now. Will call nurse and have her get the INR also. documented in this encounterUniversity Hospitals Ahuja Medical Center03-01-2022 Miscellaneous Notes* Telephone Encounter - KASSIE Alvarez - 08/03/2021 3:00 PM EST Sw spoke with patient and provided her with [employer] phone number to check on help with lovenox cost. Patient notes that she is checking with her daughter right now and seeing if she can loanher money to knot picker cloth a few days worth of Lovenox. She will also check with [employer] as wellfor help with cost of lovenox for a few days if she needs to continue with medication. Sw noted that if patient needs to be on for extended amount of time can check [employer] for coupon and also [employer] has a pap program for lovenox . [...] 08/02/2021 4:52 PM EST Orders faxed to [facility]. Spoke with pt. Advised of dosage instructions. Pt states that she has 2 injections left and cannot afford the co-pay for another refill. Pt has appointment on . * Telephone Encounter - Christopher Bonilla MD - 08/02/2021 4:39 PM EST Continue lovenox. 6 mg today and tomorrow. Recheck Wed * Telephone Encounter - Airam Ayon RN - 08/02/2021 3:38 PM EST Last INR: INR (POCT) 1.5 EXT 08/02/2021 Current dose of coumadin is: 4 mg Coumadin Mon/Mon/ Fri 2 mg all other days AND Lovenox 60 mg twicedaily Last date of dose change: 07/28/21 Previous INR (date and result): 07/30/21 1.3 EXT Received additional 2 mg Coumadin that day Additional Clinical Information or narrative: Please call [facility] at [phone] by 4 PM or Fax new orders to [phone] after 4PM. documented in this encounterUniversity Hospitals Ahuja Medical Center01-28-2022 History of Present illness Narrative* Ni Ierne, RT(R) - 07/02/2021 2:20 PM EST Radiology [...] 2:05 PM documented in this encounterUniversity Hospitals Ahuja Medical Center01-14-2022 History of Present illness Narrative* [...] 1:46 PM documented in this encounterUniversity Hospitals Ahuja Medical Center11-30-2020 History of Present illness Narrative* Ni Irene (Rt), [facility] - 05/04/2020 3:30 PM EST Radiology Service [...] 3:34 PM documented in this encounterUniversity Hospitals Ahuja Medical Center10-19-2020 History of Past illness Narrative* [...] encounter (statuses as of 08/25/2021) [facility]10[facility] History of Past illness Narrative* [...] of this encounter (statuses as of 08/25/2021) [place] [id number] History of Past illness Narrative* Problem Noted [...] encounter (statuses as of 08/31/2021) [facility] History of Past illness Narrative* [...] encounter (statuses as of 09/09/2021) [facility] History of Past illness Narrative* [...] encounter (statuses as of 09/16/2021) [facility] History of Past illness Narrative* [...] encounter (statuses as of 09/20/2021) [facility] History of Past illness Narrative* [...] encounter (statuses as of 09/27/2021) [facility] History of Past illness Narrative* [...] encounter (statuses as of 10/04/2021) [facility] History of Past illness Narrative* [...] encounter (statuses as of 10/04/2021) [facility] History of Past illness Narrative* [...] encounter (statuses as of 10/05/2021) [facility] of Past illness Narrative* [...] encounter (statuses as of 10/06/2021) [facility] of Past illness Narrative* [...] encounter (statuses as of 10/11/2021) [facility] History of Past illness Narrative* [...] encounter (statuses as of 10/11/2021) [facility] of Past illness Narrative* [...] encounter (statuses as of 10/18/2021) [facility] of Past illness Narrative* [...] encounter (statuses as of 10/25/2021) [facility] of Past illness Narrative* [...] encounter (statuses as of 11/02/2021) [facility] of Past illness Narrative* [...] of this encounter (statuses as of 11/04/2021) [facility] of Past illness Narrative* [...] encounter (statuses as of 11/08/2021) [facility] of Past illness Narrative* [...] encounter (statuses as of 11/09/2021) [facility] of Past illness Narrative* [...] encounter (statuses as of 11/18/2021) [facility] of Past illness Narrative* [...] encounter (statuses as of 12/16/2021) [facility] of Past illness Narrative* [...] encounter (statuses as of 12/20/2021) [facility] of Past illness Narrative* [...] encounter (statuses as of 12/20/2021) [facility] of Past illness Narrative* [...] encounter (statuses as of 01/05/2022) [facility] of Past illness Narrative* [...] encounter (statuses as of 01/14/2022) [facility] of Past illness Narrative* [...] encounter (statuses as of 01/14/2022) [facility] of Past illness Narrative* [...] encounter (statuses as of 02/03/2022) [facility] Narrative* [...] encounter (statuses as of 02/08/2022) [facility] Narrative* [...] encounter (statuses as of 02/09/2022) [facility] Narrative* [...] encounter (statuses as of 02/09/2022) [facility] Narrative* [...] encounter (statuses as of 02/10/2022) [facility] Narrative* [...] encounter (statuses as of 02/10/2022) [facility] Narrative* [...] encounter (statuses as of 02/12/2022) [facility] Narrative* [...] encounter (statuses as of 02/14/2022) [facility] Narrative* [...] encounter (statuses as of 02/15/2022) [facility] Narrative* [...] encounter (statuses as of 02/15/2022) [facility] Narrative* [...] encounter (statuses as of 02/16/2022) [facility] Narrative* [...] encounter (statuses as of 02/17/2022) [facility] Narrative* [...] encounter (statuses as of 02/18/2022) [facility] Narrative* [...] encounter (statuses as of 02/21/2022) [facility] Narrative* [...] encounter (statuses as of 02/22/2022) [facility] Narrative* [...] encounter (statuses as of 02/22/2022) [facility] Narrative* [...] encounter (statuses as of 02/25/2022) [facility] Narrative* [...] encounter (statuses as of 02/25/2022) [facility] Narrative* [...] encounter (statuses as of 03/03/2022) [facility] Narrative* [...] encounter (statuses as of 03/03/2022) [facility] Narrative* [...] encounter (statuses as of 03/08/2022) [facility] Narrative* [...] encounter (statuses as of 03/08/2022) [facility] Narrative* [...] encounter (statuses as of 03/08/2022) [facility] Narrative* [...] encounter (statuses as of 03/15/2022) [facility] Narrative* [...] encounter (statuses as of 03/16/2022) [facility] Narrative* [...] of this encounter (statuses as of 03/22/2022) [place] [id number] History of Past illness Narrative* Problem Noted [...] encounter (statuses as of 03/24/2022) [facility] Narrative* [...] encounter (statuses as of 03/29/2022) [facility] Narrative* [...] encounter (statuses as of 04/05/2022) [facility] CenterDischar summary Author Christine Borges [facility] Note Date/Time January 25, 2025 1: 44pm [facility] Medical Records Department [address] [place] [address] Instructions for Home/Discharge Instructions 01/25/25 1342 MR#: [id number] Acct: [id number] Name: LIBRA CEJA Rep #:[id number] : [id number] From: Christine Borges MD [...] Borges MD>Christine Borges MD CC: Dr. Philip Kamara DO; Dr. Christopher Bonilla MD ~ Signed [facility] Work Phone: Evaluation note* Diagnosis Pleural effusion- Primary Unspecified pleural effusion [facility]* Diagnosis Paroxysmal atrial fibrillation (HCC) Atrial fibrillation [facility]* Diagnosis Onset Date Resolution Status HLD [...] (hyperlipidemia) acute HTN (hypertension) acute [facility] Work Phone: Evaluation note* Diagnosis Paroxysmal atrial fibrillation (HCC) Atrial fibrillation documented in this encounter [facility] note* Diagnosis Onset Date Resolution Status Atrial [...] (CHF) acute HLD (hyperlipidemia) acute HTN (hypertension) [facility] Work Phone: Evaluation note* Diagnosis Paroxysmal atrial fibrillation (HCC)- Primary [...] (HCC) Atrial fibrillation [facility]* Diagnosis Paroxysmal atrial fibrillation (HCC) Atrial fibrillation documented in this encounter [facility] note* Diagnosis Onset Date Resolution Status Acute respiratory failure with hypoxia resolved Hypokalemia resolved Pleural effusion on right re solved Acute respiratory failure with hypoxia resolved Pleural effusion on right re solved Atrial fibrillation acute Congestive heart failure (CHF) acute Pleural effusion acute Atrial fibrillation acute Congestive heart failure (CHF) acute HLD (hyperlipidemia) acute HTN (hypertension) [facility] Work Phone: Evaluation note* Diagnosis Paroxysmal atrial fibrillation (HCC) Atrial fibrillation documented in this encounter [facility] note* Diagnosis Hypertension, essential- Primary Unspecified essential [...] encounter [facility] note* Diagnosis Onset Date Resolution Status Atrial fibrillation acute Congestive heart failure (CHF) acute HLD (hyperlipidemia) acute HTN (hypertension) acute Atrial fibrillation acute Congestive heart failure (CHF) acute Pleural effusion acute Bacteremia due to Gram-negative bacteria acute Dehydration acute Empyema acute Hypokalemia acute Hypophosphatemia acute Hypoxia acute Leukocytosis acute Pleural effusion on right ac [place] Pneumonia acute [facility] Work Phone: Evaluation note* Diagnosis Paroxysmal atrial fibrillation (HCC) Atrial fibrillation [facility]* Diagnosis Pleural effusion- Primary Unspecified pleural effusion [facility]* Diagnosis Paroxysmal atrial fibrillation (HCC) Atrial fibrillation [facility]* Diagnosis Paroxysmal atrial fibrillation (HCC)- Primary Atrial fibrillation [facility]* Diagnosis Onset Date Resolution Status Congestive heart failure (CHF) acute Pleural effusion acute Bacteremia due to Gram-negative bacteria acute Dehydration acute Hypokalemia acute Hypophosphatemia acute Hypoxia acute Leukocytosis acute Pleural effusion on right ac [employer] [place] Pneumonia acute Empyema resolved Congestive heart failure (CHF) acute Essential hypertension acute Paroxysmal atrial fibrillation acute Pleural effusion acute Shortness of breath acute Paroxysmal atrial fibrillation acute Pleural effusion on right ac [employer] [place] Empyema resolved [facility] Work Phone: Evaluation note* Diagnosis Atrial fibrillation, chronic (HCC)- Primary Atrial fibrillation documented [facility] this encounter [facility]* Diagnosis Paroxysmal atrial fibrillation (HCC)- Primary Atrial fibrillation Pleural effusion, right Unspecified pleural effusion Renal insufficiency Unspecified disorder of kidney and ureter Acute heart failure with preserved ejection fraction (HCC) Hypertension, essential Unspecified essential hypertension Chronic anticoagulation Long-term (current) use of anticoagulants pasturella bactermia Bacteremia documented [facility] this [facility]* Diagnosis Hyperlipidemia, unspecified hyperlipidemia type- Primary [...] disorders of kidney documented [facility]* Diagnosis Paroxysmal atrial fibrillation (HCC) Atrial fibrillation documented [facility] this [facility]* Diagnosis Renal insufficiency- Primary Unspecified disorder of kidney and ureter documented [facility]* Diagnosis Onset Date Resolution Status Bacteremia due to Gram-negative bacteria acute Dehydration acute Hypokalemia acute Hypophosphatemia acute Hypoxia acute Leukocytosis acute Pleural effusion on right ac [employer] [place] Pneumonia acute Empyema resolved Congestive heart failure (CHF) acute Essential hypertension acute Paroxysmal atrial fibrillation acute Pleural effusion acute Shortness of breath acute Paroxysmal atrial fibrillation acute Pleural effusion on right ac [employer] [place] Empyema resolved [facility] Work Phone: Evaluation note* Diagnosis Rib pain- Primary Chest pain, unspecified documented [facility]* Diagnosis Multiple thyroid nodules- Primary Nontoxic multinodular goiter documented [facility] this encounter [facility]* Diagnosis Upper back pain- Primary documented in this encounter [facility]* Diagnosis Paroxysmal atrial fibrillation (HCC) Atrial fibrillation documented in this encounter [facility] note* Diagnosis Paroxysmal atrial fibrillation (HCC)- Primary Atrial fibrillation documented in this encounter [facility]* Diagnosis Onset Date Resolution Status Pleural effusion acute Empyema resolved Goiter acute Congestive heart failure (CHF) acute Essential hypertension acute Paroxysmal atrial fibrillation acute Pleural effusion acute Goiter acute [facility] Work Phone: Evaluation note* Diagnosis Compression deformity of vertebra- Primary Other acquired deformity of back or spine Centrilobular emphysema (HCC) Other emphysema Pulmonary hypertension (HCC) Other chronic pulmonary heart diseases Paroxysmal atrial fibrillation (HCC) Atrial fibrillation Rheumatoid arthritis, involving unspecified site, unspecified whether rheumatoid factor present (HCC) Chronic respiratory failure with hypoxia (HCC) Chronic respiratory failure documented [facility] this encounter [facility]* Diagnosis Compression deformity of vertebra- Primary Other acquired deformity of back or spine documented in this encounter [facility]* Diagnosis Compression deformity of vertebra- Primary Other acquired deformity of back or spine documented [facility]* Diagnosis Compression deformity of vertebra- Primary Other acquired deformity of back or spine Renal mass Unspecified disorder of kidney and ureter Liver mass Unspecified disorder of liver documented in this encounter [facility]* Diagnosis Epigastric pain- Primary Abdominal pain, epigastric Abdominal swelling, generalized Abdominal or pelvic swelling, mass, or lump, generalized Compression deformity of vertebra Other acquired deformity of back or spine documented [facility] this encounter [facility]* Diagnosis Elevated alkaline phosphatase level- Primary Other nonspecific abnormal serum enzyme levels documented in this encounter [facility]* Diagnosis Compression deformity of vertebra Other acquired deformity of back or spine documented in this encounter [facility]* Diagnosis Paroxysmal atrial fibrillation (HCC) Atrial fibrillation documented [facility] this encounter [facility]* Diagnosis Elevated alkaline phosphatase level- Primary Other nonspecific abnormal serum enzyme levels documented in this encounter [facility]* Diagnosis Paroxysmal atrial fibrillation (HCC) Atrial fibrillation documented [facility] this encounter [facility]* Diagnosis Paroxysmal atrial fibrillation (HCC) Atrial fibrillation documented in this [facility] Diagnosis Chronic anticoagulation- Primary Long-term (current) [...] pain documented [facility] this [facility] Diagnosis Paroxysmal atrial fibrillation (HCC) Atrial fibrillation documented [facility] this [facility] Diagnosis Paroxysmal atrial fibrillation (HCC) Atrial fibrillation documented in this [facility] Diagnosis Onset Date Resolution Status Pleural effusion acute Empyema resolved Iron deficiency anemia acute [facility] Work Phone: Evaluation note* Diagnosis GERD without esophagitis Esophageal reflux documented in this [facility] Diagnosis Herpes zoster without complication- Primary Herpes zoster without mention of complication Rash Rash and other nonspecific skin eruption documented in this [facility] Diagnosis Paroxysmal atrial fibrillation (HCC)- Primary Atrial fibrillation documented in this [facility] Diagnosis Paroxysmal atrial fibrillation (HCC)- Primary Atrial fibrillation documented in this [facility] Diagnosis Chronic anticoagulation- Primary Long-term (current) use of anticoagulants Paroxysmal atrial fibrillation (HCC) Atrial fibrillation documented in this encounter [facility] note* Diagnosis Onset Date Resolution Status Pleural effusion acute Empyema resolved Iron deficiency anemia acute Bloating acute Iron deficiency anemia acute Bloating acute Iron deficiency anemia acute [facility] Work Phone: Evaluation note* Diagnosis 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 Mata's esophagus documented in this encounter [facility] note* Diagnosis Paroxysmal atrial fibrillation (HCC)- Primary Atrial fibrillation documented in this encounter [facility] note* Diagnosis Paroxysmal atrial fibrillation (HCC)- Primary Atrial fibrillation documented in this encounter [facility] note* Diagnosis Paroxysmal atrial fibrillation (HCC)- Primary Atrial fibrillation documented in this encounter [facility] note* Diagnosis Atrial fibrillation, chronic (HCC)- Primary Atrial fibrillation documented in this encounter [facility] note* Diagnosis Paroxysmal atrial fibrillation (HCC)- Primary Atrial fibrillation documented in this encounter [facility] note* Diagnosis Renal mass Unspecified disorder of kidney and ureter Liver mass Unspecified disorder of liver documented in this encounter [facility] note* Diagnosis Elevated alkaline phosphatase level Other nonspecific abnormal serum enzyme levels documented in this encounter [facility] note* Diagnosis Pathological fracture, other site, initial encounter for fracture documented in this encounter [facility] note* Diagnosis Thyroid nodule Nontoxic uninodular goiter documented in this encounter [facility] note* Diagnosis Coagulopathy (HCC)- Primary Other and [...] glucose documented [facility] this encounter [facility] noteNo assessment information availableWSouthwest [facility] Work Phone: evaluation note* Diagnosis Onset Date Resolution Status Multiple thyroid nodules u [facility] Work Phone: evaluation note* Diagnosis Pulmonary emphysema, unspecified emphysema type (HCC)- Primary Paroxysmal atrial fibrillation (HCC) Atrial fibrillation documented in this encounter [facility] Diagnosis Paroxysmal atrial fibrillation (HCC)- Primary Atrial fibrillation documented in this encounter [facility]* Diagnosis Chronic obstructive pulmonary disease with acute lower respiratory infection (HCC)- Primary Obstructive chronic bronchitis with exacerbation Paroxysmal atrial fibrillation (HCC) Atrial fibrillation documented in this encounter [facility]* Diagnosis Hypertension, essential- Primary Unspecified essential hypertension Paroxysmal atrial fibrillation (HCC) Atrial fibrillation documented in this encounter [facility] Diagnosis Paroxysmal atrial fibrillation (HCC)- Primary Atrial fibrillation documented in this encounter [facility]* Diagnosis Paroxysmal atrial fibrillation (HCC)- Primary Atrial fibrillation [facility] Diagnosis Anxiety with depression- Primary Paroxysmal atrial fibrillation (HCC) Atrial fibrillation Hypertension, essential Unspecified essential hypertension Pulmonary hypertension (HCC) Other chronic pulmonary heart diseases Pulmonary emphysema, unspecified emphysema type (HCC) Gastroesophageal reflux disease without esophagitis Esophageal reflux Prediabetes Other abnormal glucose documented in this encounter [facility]* Diagnosis Compression deformity of vertebra Other acquired deformity of back or spine documented in this encounter [facility]* Diagnosis Paroxysmal atrial fibrillation (HCC)- Primary Atrial fibrillation documented in this encounter [facility]* Diagnosis GERD without esophagitis Esophageal reflux documented in this encounter [facility]* Diagnosis Abdominal swelling, generalized Abdominal or pelvic swelling, mass, or lump, generalized Epigastric pain Abdominal pain, epigastric documented in this encounter [facility]* Diagnosis Paroxysmal atrial fibrillation (HCC)- Primary Atrial fibrillation documented in this encounter [facility]* Diagnosis Upper back pain [facility] Diagnosis Rib pain Chest pain, unspecified documented in this encounter [facility]* Diagnosis Parapneumonic effusion Other specified forms of effusion, except tuberculous documented in this encounter [facility] note* Diagnosis SOB (shortness of breath) Shortness of breath Pleural effusion Unspecified pleural effusion Pleural effusion, right Unspecified pleural effusion documented in this encounter [facility] note* Diagnosis Pleural effusion, right Unspecified pleural effusion documented in this encounter [facility] note* Diagnosis Pleural effusion, right Unspecified pleural effusion documented in this encounter [facility] note* Diagnosis Dyspnea, unspecified type documented in this encounter [facility] note* Diagnosis Recurrent right pleural effusion Unspecified pleural effusion documented in this encounter [facility] note* Diagnosis Cough documented in this encounter [facility] note* Diagnosis Atrial fibrillation, chronic (HCC)- Primary Atrial fibrillation documented in this encounter [facility] note* Diagnosis Hypertension, essential- Primary Unspecified essential [...] Nontoxic uninodular goiter documented in this encounter [facility] note* Diagnosis Hyperlipidemia, unspecified hyperlipidemia type- Primary documented in this encounter [facility] note* Diagnosis Paroxysmal atrial fibrillation (HCC)- Primary Atrial fibrillation documented in this encounter [facility] note* Diagnosis Hypertension, essential Unspecified essential hypertension Paroxysmal atrial fibrillation (HCC) Atrial fibrillation documented in this encounter [facility] note* Diagnosis Onset Date Resolution Status Admit Date Congestive heart failure (CHF) acute December 05, 2024 2:57pm Essential hypertension acute Ju 2024 2:57pm Mitral valve insufficiency acute December 05, 2024 2:57pm Paroxysmal atrial fibrillation acute December 05, 2024 2:57pm Pleural effusion acute December 2:57pm HLD (hyperlipidemia) inactive December 05, 2024 2:57pm [employer] Work Phone: Evaluation note* Diagnosis Medicare annual wellness visit, subsequent- Primary Routine general medical examination at a [facility] Screening for depression Encounter for [...] unspecified hypotension type [facility] this [facility]* Diagnosis Pulmonary emphysema, unspecified emphysema type (HCC) documented in this encounter [facility]* Diagnosis Chronic obstructive pulmonary disease, unspecified COPD type (HCC)- Primary Acute on chronic congestive heart failure, unspecified heart failure type (HCC) Pulmonary emphysema, unspecified emphysema type (HCC) Hypertension, essential Unspecified essential hypertension Pulmonary hypertension (HCC) Other chronic pulmonary heart diseases documented in this encounter [facility] Discharge instructionsAdditional Instructions Follow-up with primary care physician. Make sure that you drink plenty of fluids. Return back to the ED symptoms change or worsen.[facility] Work Phone: Patient's home Plan of [...] ed in this visit SN Edema Disciplines: 02/09/2022 Active 1 goal linked to [...] all medications you are taking -- even rnip-nfd-lhxgssl medicines -- with your doctor and pharmacist [...] after incontinence episode. [facility] this [facility]* [...] provider. 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 PT Impaired [...] call provider. documented in this encounter [facility]'s home Plan of care note* Visit [...] scheduled/docume nted intervention SN Integumentary/Wound s Disciplines: 02/09/2022 Resolved on 02/15/2022 1 goal linked to scheduled/docume nted intervention SN Heart Failure Disciplines: 02/09/2022 Active 1 [...] all medications you are taking -- even kchc-ayl-lirimar medicines -- with your doctor and pharmacist [...] scheduled bathroom trips. documented [facility] this [facility]* [...] community [facility]ulation[facility]. PT Impaired [...] call provider. documented in this encounter [facility]'s home Plan of care note* Visit [...] all medications you are taking -- even igqs-zuc-semngyy medicines -- with your doctor and pharmacist [...] once on Date: 02/24/22 (Z79.01). Results to [place]. *Order is in EPIC* Problem:SN Labwork Goal:SN to obtain lab specimen without difficulty when ordered throughout certification period Completed documented [facility] this encounter [facility]* [...] all medications you are taking -- even hbes-sjq-rxkffif medicines -- with your doctor and pharmacist [...] disease management. documented in this encounter [facility]'s home Plan of care note* Visit [...] all medications you are taking -- even bigr-fev-zewvzbj medicines -- with your doctor and pharmacist [...] services documented in this encounter [facility] note Author John Last [facility] Note Date/Time March 04, 2025 1:50pm [facility] [address] [place] [address] OFFICE VISIT Date of Service: 03/04/25 MR#: [id number] Acct: [id number] Name: LIBRA CEJA Rep #: [id number] : 1945 Provider: FELIPE Duran Age/Sex: 79/F Location: [facility] [place] Status: Signed HPI HPI History of Present Illness Details: Libra Ceja is a 79-year-old female who presents to office today for hospital follow-up. She was admitted to [facility] 01/22 - 01/25/2025 for hypoxia due [...] in which she reports was diagnosed through [facility] system. She was admitted to the hospital in April 2021 for managementof right sided pleural effusion and diagnostic and therapeutic right-sided thoracentesis was ordered in which 1200 cc of fluid was aspirated. Echocardiogram during that admission demonstrated an EF of 55%. She presented to [facility] in July 2023 with concerns of [...] She notices b/l ankle edema that was bad prior to hospital, improved while hospitalized and [...] Oximetry (%) 95 Intake Visit Reasons: S/P [facility] 01/02 Health Science Specialist Required: No Is patient in pain?: No [...] you fallen in the past year?: No PFSH Medical History CHF exacerbation History of atrial fibrillation Acute exacerbation of chronic obstructive pulmonary disease Chronic anticoagulation Hypoxia Mitral valve insufficiency Mata's esophagus with dysplasia Wears glasses Ambulates with cane Arthritis High cholesterol Difficulty chewing Shortness of breath on exertion History of echocardiogram Cardiology follow-up encounter Bloating Abdominal pain 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 [id number] score of 5. Plan: Recommend patient continue [...] daily. Encourage lifestyle risk factor modification. 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: Status: Acute Plan: [...] Orders: Orders 12 Lead EKG performed by [facility] [place] 02/28/25 I48.0 - Paroxysmal atrial fibrillation 12 [...] Paroxysmal atrial fibrillation I48.0 Essential hypertension I10 senior living current use of amiodarone Z79.899 Anticoagulant long-term use Z79.01 Coding Level of Care Code Off vis,est,level 4 Diagnoses Congestive heart failure, unspecified HF chronicity, unspecified heart failure type I50.9 Heart failure type: unspecified Heart failure chronicity: unspecified Paroxysmal atrial fibrillation I48.0 Essential hypertension I10 senior living current use of amiodarone Z79.899 Anticoagulant long-term use Z79.01 Clinical Quality Measures Falls Risk Screening/Assistive Devices Have you fallen in the past year?: No Cardiac Ejection fraction %: 60 03/04/25 1547 <Electronically signed by John WANG> Date _ John WANG 03/05/25 1037<Electronically signed by Bib Vincent MD> Cosigner Signature: Date (if applicable) Bib Vincent MD CC: Dr. Christopher Bonilla MD ~ [employer] Work Phone: [employer] for referral (narrative)* Diagnostic Procedure Only (Routine) - Authorized Specialty Diagnoses / Procedures Referred By Contgale t Referred To Contact US IMAGING Diagnoses Thyroid nodule Procedures US THYROID/PARATHYROID US SOFT TISSUE HEAD & NECK REAL TIME IMGE Christopher Watts MD [address] [place] [address] Us Imaging Referral ID Status Reason Start Date Expiration Date Visits Requested Visits Authorized [id number] Authorized Auto-Generat ed Referral 2 05/19/2023 1 1 [facility] for referral (narrative)* Diagnostic Procedure Only (Urgent) - Closed Specialty Diagnoses / Procedures Referred By Contac t Referred To Contact XR IMAGING Diagnoses Rib pain Procedures XR RIBS/CHEST 3V AP RIB/OBLS/CXR LEFT RADEX RIBS UNI W/POSTEROANT CH MINIMUM 3 VIEWS Shannon Chiu, PADMA.HOT SAW OPERATOR [address] [place] [address] Xr Imaging Referral ID Status Reason Start Date Expiration Date V isits Requested Visits Authorized [id number] Closed Auto-Generate d Referral 05/17/2022 06/16/2023 1 1 [facility] for referral (narrative)* Diagnostic Procedure Only (Routine) - Authorized Specialty Diagnoses / Procedures Referred By Contac t Referred To Contact US IMAGING Diagnoses Renal mass Liver mass Procedures US ABDOMEN COMPLETE US ABDOMINAL REAL TIME W/IMAGE DOCUMENTATION Christopher Bonilla MD [address] [place] [address] Us Imaging Referral ID Status Reason Start Date Expiration Date Visits Requested Visits Authorized [id number] Authorized Auto-Generat ed Referral 09/01/2022 10/01/2023 1 1 [facility] for referral (narrative)* Diagnostic Procedure Only (Routine) - Closed Specialty Diagnoses / Procedures Referred By Contac t Referred To Contact XR IMAGING Diagnoses Abdominal swelling, generalized Epigastric pain Procedures XR ABDOMEN 1V SUPINE RADIOLOGIC EXAM ABDOMEN 1 VIEW Myah Mehta PA-C [address] [place] [address] Xr Imaging Referral ID Status Reason Start Date Expiration Date V isits Requested Visits Authorized [id number] Closed Auto-Generate d Referral 09/19/2022 10/19/2023 1 1 [facility] for referral (narrative)* Diagnostic Procedure Only (Routine) - Pending Review Specialty Diagnoses / Procedures Referred By Contac t Referred To Contact MOLECULAR & FUNCTIONAL IMAGING Diagnoses Elevated alkaline phosphatase level Procedures NM BONE WHOLE BODY BONE &/JOINT IMAGING WHOLE BODY Myah Mehta PA-C [address] [place] [address] Molecular & Functional Imaging [address] [place], [place] [id number] Referral ID Status Reason Start Date Expiration Date Visits Requested Visits Authorized [id number] Pending Review Auto-Generat ed Referral 10/05/2022 11/04/2023 1 1 [facility] for referral (narrative)* Diagnostic Procedure Only (Routine) - Closed Specialty Diagnoses / Procedures Referred By Contac t Referred To Contact US IMAGING Diagnoses Renal mass Liver mass Procedures US ABDOMEN COMPLETE US ABDOMINAL REAL TIME W/IMAGE DOCUMENTATION Christopher Bonilla MD [address] [place] [address] Us Imaging [place] [address] Referral ID Status Reason Start Date Expiration Date V isits Requested Visits Authorized [id number] Closed Auto-Generate d Referral 09/01/2022 10/01/2023 1 1 [facility] for referral (narrative)* Diagnostic Procedure Only (Routine) - Closed Specialty Diagnoses / Procedures Referred By Contac t Referred To Contact MOLECULAR & FUNCTIONAL IMAGING Diagnoses Elevated alkaline phosphatase level Procedures NM BONE WHOLE BODY BONE &/JOINT IMAGING WHOLE BODY Myah Mehta PA-C [address] [place] [address] Molecular & Functional Imaging [address] [place], [place] [id number] Referral ID Status Reason Start Date Expiration Date V isits Requested Visits Authorized [id number] Closed Auto-Generate d Referral 10/05/2022 11/04/2023 1 1 [facility] for referral (narrative)* Diagnostic Procedure Only (Routine) - Closed Specialty Diagnoses / Procedures Referred By Contac t Referred To Contact US IMAGING Diagnoses Thyroid nodule Procedures US THYROID/PARATHYROID US SOFT TISSUE HEAD & NECK REAL TIME IMGE DOCM Christopher Bonilla MD [address] [place] [address] [place] [address] Referral ID Status Reason Start Date Expiration Date V isits Requested Visits Authorized [id number] Closed Auto-Generate d Referral 04/19/2022 05/19/2023 1 1 [facility] for referral (narrative)* Diagnostic Procedure Only (Routine) - Closed Specialty Diagnoses / Procedures Referred By Contac t Referred To Contact XR IMAGING Diagnoses Abdominal swelling, generalized Epigastric pain Procedures XR ABDOMEN 1V SUPINE RADIOLOGIC EXAM ABDOMEN 1 VIEW Myah Mehta PA-C [address] [place] [address] [place] [address] Referral ID Status Reason Start Date Expiration Date V isits Requested Visits Authorized [id number] Closed Auto-Generate d Referral 09/19/2022 10/19/2023 1 1 [facility] for referral (narrative)* Diagnostic Procedure Only (Routine) - Closed Specialty Diagnoses / Procedures Referred By Contac t Referred To Contact XR IMAGING Diagnoses Upper back pain Procedures XR THORACIC GENERAL 3V AP/LAT/SWIMMERS RADEX SPINE THORACIC 3 VIEWS Christopher Bonilla MD [address] [place] [address] [place] [address] Referral ID Status Reason Start Date Expiration Date V isits Requested Visits Authorized [id number] Closed Auto-Generate d Referral 07/14/2022 08/13/2023 1 1 [facility] for referral (narrative)* Diagnostic Procedure Only (Urgent) - Closed Specialty Diagnoses / Procedures Referred By Contac t Referred To Contact XR IMAGING Diagnoses Rib pain Procedures XR RIBS/CHEST 3V AP RIB/OBLS/CXR LEFT RADEX RIBS UNI W/POSTEROANT CH MINIMUM 3 VIEWS Shannon Chiu, PDAMA.HOT SAW OPERATOR [address] [place] [id number] Xr Imaging [place] [address] Referral ID Status Reason Start Date Expiration Date V isits Requested Visits Authorized [id number] Closed Auto-Generate d Referral 05/17/2022 06/16/2023 1 1 [facility] for referral (narrative)* Diagnostic Procedure Only (Routine) - Closed Specialty Diagnoses / Procedures Referred By Contac t Referred To Contact XR IMAGING Diagnoses Pleural effusion, right Procedures XR CHEST 1V DECUBITUS RIGHT RADIOLOGIC EXAM CHEST SINGLE VIEW Ranjith Edwards MD [address] [place] [address] Xr Imaging [place] [address] Referral ID Status Reason Start Date Expiration Date V isits Requested Visits Authorized [id number] Closed Auto-Generate d Referral 07/01/2021 07/31/2022 1 1 [facility] for referral (narrative)No reason for referral information availableIndiana [facility] Work Phone: Reason for visit Narrative* Diagnostic Procedure Only (Routine) - Closed Specialty Diagnoses / Procedures Referred By Contac t Referred To Contact MOLECULAR & FUNCTIONAL IMAGING Diagnoses Elevated alkaline phosphatase level Procedures NM BONE WHOLE BODY BONE &/JOINT IMAGING WHOLE BODY Myah Mehta PA-C [address] [place] [address] Molecular & Functional Imaging [address] [place] [id number] Referral ID Status Reason Start Date Expiration Date V isits Requested Visits Authorized [id number] Closed Auto-Generate d Referral 10/05/2022 11/04/2023 1 1 [facility] for visit Narrative* Diagnostic Procedure Only (Routine) - Closed Specialty Diagnoses / Procedures Referred By Contac t Referred To Contact XR IMAGING Diagnoses Abdominal swelling, generalized Epigastric pain Procedures XR ABDOMEN 1V SUPINE RADIOLOGIC EXAM ABDOMEN 1 VIEW Myah Mehta PA-C [address] [place] [address] [place] [address] Referral ID Status Reason Start Date Expiration Date V isits Requested Visits Authorized [id number] Closed Auto-Generate d Referral 09/19/2022 10/19/2023 1 1 [facility] for visit Narrative* Diagnostic Procedure Only (Routine) - Closed Specialty Diagnoses / Procedures Referred By Contac t Referred To Contact XR IMAGING Diagnoses Upper back pain Procedures XR THORACIC GENERAL 3V AP/LAT/SWIMMERS RADEX SPINE THORACIC 3 VIEWS Christopher Bonilla MD [address] [place] [address] Xr Imaging [facility] Referral ID Status Reason Start Date Expiration Date V isits Requested Visits Authorized [id number] Closed Auto-Generate d Referral 07/14/2022 08/13/2023 1 1 [facility] for visit Narrative* Diagnostic Procedure Only (Urgent) - Closed Specialty Diagnoses / Procedures Referred By Contac t Referred To Contact XR IMAGING Diagnoses Rib pain Procedures XR RIBS/CHEST 3V AP RIB/OBLS/CXR LEFT RADEX RIBS UNI W/POSTEROANT CH MINIMUM 3 VIEWS Shannon Chiu, TOPOLOGY PROFESSOR.HOT SAW OPERATOR [id number] [place] [address] Xr Imaging [facility] Referral ID Status Reason Start Date Expiration Date V isits Requested Visits Authorized [id number] Closed Auto-Generate d Referral 05/17/2022 06/16/2023 1 1 [facility] for visit Narrative* Diagnostic Procedure Only (Routine) - Closed Specialty Diagnoses / Procedures Referred By Contac t Referred To Contact XR IMAGING Diagnoses Pleural effusion, right Procedures XR CHEST 1V DECUBITUS RIGHT RADIOLOGIC EXAM CHEST SINGLE VIEW Ranjith Edwards MD [address] [place] [address] [place] [address] Referral ID Status Reason Start Date Expiration Date V isits Requested Visits Authorized [id number] Closed Auto-Generate d Referral 07/01/2021 07/31/2022 1 1 [facility] Summary Purpose Family History No [...] FoundDocuments on File Type Date Recorded 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 Advance Directive(s) 02/09/2022 12:27 PM Date Activated Date Inactivated Comments 02/10/2022 11:13 AM Documents on File Type Date Recorded 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 Advance Directive(s) 07/07/2021 1:21 PM Advance Directive(s) 07/06/2021 8:02 AM Advance Directive(s) 11/21/2019 3:25 PM Documents on File Type Date Recorded 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 Advance Directive(s) 07/07/2021 1:21 PM Advance Directive(s) 07/06/2021 8:02 AM Advance Directive(s) 11/21/2019 3:25 PM Advance Directive Response Recorded Date/ Time Advance Directives No October 19 5 8:49pm Living Will No July 14 4:13pm Power of Chief Cloth Finishing Range Operator No July 14, 2021 4:13pm Advance Directive Response Recorded Date/ Time Advance Directives No October 19 5 8:49pm Living Will No January 26 8:35am Power of Chief Cloth Finishing Range Operator No January 26 8:35am Latest Code Status on File Code Status Date Activated Date Inactivated Comments Full Code 02/10/2022 11:13 AM Documents on File Type Date Recorded 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 Advance Directive(s) 02/09/2022 12:27 PM Latest Code Status on File Code Status Date Activated Date Inactivated Comments Full Code 02/10/2022 11:13 AM Advance Directive Response Recorded Date/ Time Advance Directives No October 19 5 7:49pm Living Will No January 26 7:35am Power of Chief Cloth Finishing Range Operator No January 26 7:35am Latest Code Status on File Code Status Date Activated Date Inactivated Comments Full Code 02/10/2022 11:13 AM Advance Directive Response Recorded Date/ Time Advance Directives No October 19 5 8:49pm Living Will No February 13, 2023 10:39am Power of Chief Cloth Finishing Range Operator No February 10:39am Latest Code Status on File Code Status Date Activated Date Inactivated Comments Full Code 02/10/2022 11:13 AM Advance Directive Response Recorded Date/ Time Advance Directives No October 19 5 7:49pm Living Will No February 13, 2023 9:39am Power of Chief Cloth Finishing Range Operator No February 9:39am Date Activated Date Inactivated Comments 02/10/2022 11:13 AM Advance Directive Response Recorded Date/ Time Advance Directives No October 19 5 8:49pm Advance Directive Response Recorded Date/ Time Do you have a Healthcare Power of Chief Cloth Finishing Range Operator? No January 02, 2025 11:45am Advance Directives No October 19 8:49pm Advance Directive Response Recorded Date/ Time Do you have a Healthcare Power of Chief Cloth Finishing Range Operator? No January 02, 2025 11:45am Do you have a Healthcare Power of Chief Cloth Finishing Range Operator? No January 22, 2025 1:45pm Advance Directives No October 19 8:49pm Advance Directive Response Recorded Date/ Time Do you have a Healthcare Power of Chief Cloth Finishing Range Operator? No January 02, 2025 11:45am Do you have a Healthcare Power of Chief Cloth Finishing Range Operator? No January 22, 2025 5:46pm Advance Directives No October 19 8:49pm Reason for Referral Specialty Diagnoses / Procedures Referred By Timothy kraus Referred To Contact Pulmonary and Critical Care Medicine Diagnoses Pleural effusion Procedures CONSULT TO PULM/CRITICAL CARE OFFICE/OUTPATIENT [facility] 60-74 MINUTES Christopher Bonilla MD [address] [place] [address] Referral ID Status Reason Start Date Expiration Date Visits Requested Visits Authorized [id number] Authorized PCP Requested Referral 08/25/2021 08/25/2022 1 1 Specialty Diagnoses / Procedures Referred By Contgale t Referred To Contact General Surgery Diagnoses Thyroid nodule History of colonic polyps Procedures CONSULT TO GENERAL SURGERY OFFICE/OUTPATIENT [facility] 60-74 MINUTES Christopher Bonilla MD [address] [place] [address] Referral ID Status Reason Start Date Expiration Date Visits Requested Visits Authorized [id number] Authorized PCP Requested Referral 10/04/2021 10/04/2022 1 1 Referral ID Status Reason Start Date Expiration Date Visits Requested Visits Authorized [id number] Authorized PCP Requested Referral 02/14/2022 02/14/2023 1 1 Specialty Diagnoses / Procedures Referred By Contac t Referred To Contact General Surgery Diagnoses Multiple thyroid nodules Procedures CONSULT TO GENERAL SURGERY OFFICE/OUTPATIENT [facility] 60-74 MINUTES Dalila Jensen, TOPOLOGY PROFESSOR.HOT SAW OPERATOR [address] [place] [address] Referral ID Status Reason Start Date Expiration Date Visits Requested Visits Authorized [id number] Authorized PCP Requested Referral 05/20/2023 1 1 Specialty Diagnoses / Procedures Referred By Contac t Referred To Contact Orthopedics Diagnoses Upper back pain Procedures CONSULT TO ORTHOPAEDICS OFFICE/OUTPATIENT [facility] 60-74 MINUTES Shanta Logan, TOPOLOGY PROFESSOR.HOT SAW OPERATOR [address] [place] [id number] Referral ID Status Reason Start Date Expiration Date Visits Requested Visits Authorized [id number] Authorized PCP Requested Referral 06/29/2022 06/29/2023 1 1 Specialty Diagnoses / Procedures Referred By Contac t Referred To Contact Pain Management Diagnoses Compression deformity of vertebra Procedures CONSULT TO PAIN MGT OFFICE/OUTPATIENT [facility] 60-74 MINUTES Christopher Bonilla MD [address] [place] [address] Referral ID Status Reason Start Date Expiration Date Visits Requested Visits Authorized [id number] Authorized PCP Requested Referral 08/19/2022 08/19/2023 1 1 Specialty Diagnoses / Procedures Referred By Contac t Referred To Contact MR IMAGING Diagnoses Pathological fracture, other site, initial encounter for fracture Procedures MRI THORACIC SPINE WO IVCON MRI SPINAL CANAL THORACIC W/O CONTRAST Myah Cadet PA-C [address] [place] [address] [place] [address] Referral ID Status Reason Start Date Expiration Date V isits Requested Visits Authorized [id number] Closed Auto-Generate d Referral 07/21/2022 08/20/2023 1 1 Specialty Diagnoses / Procedures Referred By Contac t Referred To Contact Gastroenterology Diagnoses 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 Gastroesophageal reflux disease, unspecified whether esophagitis present Iron deficiency anemia, unspecified iron deficiency anemia type Procedures CONSULT TO GASTROENTEROLOGY Christopher Bonilla MD [address] [place] [address] Referral ID Status Reason Start Date Expiration Date Visits Requested Visits Authorized [id number] Ref Not Required PCP Requested Referral 05/10/2023 05/09/2024 1 1 Specialty Diagnoses / Procedures Referred By Contac t Referred To Contact Cardiology Diagnoses Paroxysmal atrial fibrillation (HCC) Procedures CONSULT TO CARDIOLOGY OFFICE/OUTPATIENT [facility] 60 MINUTES Mimi Encinas APRN.CNS [address] [place] [address] Referral ID Status Reason Start Date Expiration Date Visits Requested Visits Authorized [id number] Authorized PCP Requested Referral 07/10/2023 07/09/2024 1 1 Specialty Diagnoses / Procedures Referred By Contac t Referred To Contact Gastroenterology Diagnoses 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 Procedures CONSULT TO GASTROENTEROLOGY OFFICE/OUTPATIENT [facility] 60 MINUTES Crhistopher Bonilla MD [address] [place] [address] Referral ID Status Reason Start Date Expiration Date Visits Requested Visits Authorized [id number] Authorized PCP Requested Referral 05/31/2025 1 1 [...] Pneumonia Pneumonia 1 YR F/U (NN PT) [facility] ER F/U DYPSNEA Reason for Visit Congestive [...] Pneumonia Pneumonia 1 YR F/U (NN PT) [facility] ER F/U DYPSNEA Reason for Visit Bacteremia [...] Pneumonia Pneumonia 1 YR F/U (NN PT) [facility] ER F/U DYPSNEA PYOTHORAX Reason for Visit [...] 05, 2024 2:57p m Z79.899 - Other bed bug exterminator (current) 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 December 20, 2024 10:33am 2 [employer] paz 2024 12:01pm Reason for Visit Admit Date Congestive heart failure (CHF) December 05, 2024 2:57pm Essential hypertension December 05, 2024 2: 57pm 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 December 05, 2024 2:57pm Mitral valve insufficiency December 05 2:57pm Paroxysmal atrial fibrillation December 05, 2024 2:57pm Pleural effusion December 05, 2024 2:57p m HLD (hyperlipidemia) December 05, 2024 2:57 pm Chief Complaint Admit Date 9 M FU December 05, 2024 2:57p m Z79.899 - Other senior living (current) 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 December 20, 2024 10:33am 2 [employer] paz 2024 12:01pm DIARRHEA January 02, 2025 11:0 0am Chief Complaint Admit Date 9 M FU December 05, 2024 2:57p m Z79.899 - Other bed bug exterminator (current) 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 December 20, 2024 10:33am 2 [employer] paz 2024 12:01pm DIARRHEA January 02, 2025 11:0 0am COPD AND CHF EXACERBATION W/ HYPOXIA Jan 4:50pm Reason for Visit Admit Date Congestive heart failure (CHF) December 05, 2024 2:57pm Essential hypertension December 05, 2024 2: 57pm 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 December 05, 2024 [...] 05, 2024 2:57p m Z79.899 - Other senior living (current) 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 December 20, 2024 10:33am 2 [employer] paz 2024 12:01pm DIARRHEA January 02, 2025 11:0 0am COPD AND CHF EXACERBATION W/ HYPOXIA Jan 4:50pm COPD AND CHF EXACERBATION W/ HYPOXIA Jan 3:08pm COPD AND CHF EXACERBATION W/ HYPOXIA Jan 9:58am Reason for Visit Admit Date Congestive heart failure (CHF) December 05, 2024 2:57pm Essential hypertension December 05, 2024 2: 57pm 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 December 05, 2024 [...] 05, 2024 2:57p m Z79.899 - Other senior living (current) 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 December 20, 2024 10:33am 2 [employer] paz 2024 12:01pm DIARRHEA January 02, 2025 11:0 0am COPD AND CHF EXACERBATION W/ HYPOXIA Jan 4:50pm COPD AND CHF EXACERBATION W/ HYPOXIA Jan 3:08pm COPD AND CHF EXACERBATION W/ HYPOXIA Jan 9:58am COPD AND CHF EXACERBATION W/ HYPOXIA Jan 1:44pm S/P WC 01/02March 04, 2025 12:58pm Reason for Visit Admit Date Congestive heart failure (CHF) December 05, 2024 2:57pm Essential hypertension December 05, 2024 2: 57pm senior living current use of amiodarone December 05, 2024 [...] 12:58pm Essential hypertension March 04, 025 12:58pm senior living current use of amiodarone Feb 12:58pm Paroxysmal atrial fibrillation March 04, 2025 12:58pm Additional Source Comments INFORMATION SOURCE (unrecogn ized section and content) DATE CREATED AUTHOR 11/24/2017 [facility] DATE CREATED AUTHOR AUTHOR'S ORGANIZ ATION 05/13/2023 [facility] DATE CREATED AUTHOR AUTHOR'S ORGANIZ ATION 04/13/2025 [facility] DATE CREATED AUTHOR AUTHOR'S ORGANIZ ATION 04/15/2025 [facility] DATE CREATED AUTHOR AUTHOR'S ORGANIZ ATION 04/16/2025 [facility] Source Comments (unrecognize d section and content) In the event this informatio n is protected by the Federal Confidentiality of Alcohol and Drug Abuse Patient Records regulations: The Federal rules restrict any use of the information to criminally investigate or prosecute any alcohol or drug abuse patient.[facility] the event this information is protected by the Federal Confidentiality of Alcohol and Drug Abuse Patient Records regulations: The Federal rules restrict any use of the information to criminally investigate or prosecute any alcohol or drug abuse patient.[facility] CenterIn the event this information is protected by the Federal Confidentiality of Alcohol and Drug Abuse Patient Records regulations: The Federal rules restrict any use of the information to criminally investigate or prosecute any alcohol or drug abuse patient.[facility] CenterIn the event this information is protected by the Federal Confidentiality of Alcohol and Drug Abuse Patient Records regulations: The Federal rules restrict any use of the information to criminally investigate or prosecute any alcohol or drug abuse patient.[facility] CenterIn the event this information is protected by the Federal Confidentiality of Alcohol and Drug Abuse Patient Records regulations: The Federal rules restrict any use of the information to criminally investigate or prosecute any alcohol or drug abuse patient.[facility] CenterIn the event this information is protected by the Federal Confidentiality of Alcohol and Drug Abuse Patient Records regulations: The Federal rules restrict any use of the information to criminally investigate or prosecute any alcohol or drug abuse patient.[facility] CenterIn the event this information is protected by the Federal Confidentiality of Alcohol and Drug Abuse Patient Records regulations: The Federal rules restrict any use of the information to criminally investigate or prosecute any alcohol or drug abuse patient.[facility] CenterIn the event this information is protected by the Federal Confidentiality of Alcohol and Drug Abuse Patient Records regulations: The Federal rules restrict any use of the information to criminally investigate or prosecute any alcohol or drug abuse patient.[facility] CenterIn the event this information is protected by the Federal Confidentiality of Alcohol and Drug Abuse Patient Records regulations: The Federal rules restrict any use of the information to criminally investigate or prosecute any alcohol or drug abuse patient.[facility] CenterIn the event this information is protected by the Federal Confidentiality of Alcohol and Drug Abuse Patient Records regulations: The Federal rules restrict any use of the information to criminally investigate or prosecute any alcohol or drug abuse patient.[facility] CenterIn the event this information is protected by the Federal Confidentiality of Alcohol and Drug Abuse Patient Records regulations: The Federal rules restrict any use of the information to criminally investigate or prosecute any alcohol or drug abuse patient.[facility] CenterIn the event this information is protected by the Federal Confidentiality of Alcohol and Drug Abuse Patient Records regulations: The Federal rules restrict any use of the information to criminally investigate or prosecute any alcohol or drug abuse patient.[facility] CenterIn the event this information is protected by the Federal Confidentiality of Alcohol and Drug Abuse Patient Records regulations: The Federal rules restrict any use of the information to criminally investigate or prosecute any alcohol or drug abuse patient.[facility] CenterIn the event this information is protected by the Federal Confidentiality of Alcohol and Drug Abuse Patient Records regulations: The Federal rules restrict any use of the information to criminally investigate or prosecute any alcohol or drug abuse patient.[facility] CenterIn the event this information is protected by the Federal Confidentiality of Alcohol and Drug Abuse Patient Records regulations: The Federal rules restrict any use of the information to criminally investigate or prosecute any alcohol or drug abuse patient.[facility] CenterIn the event this information is protected by the Federal Confidentiality of Alcohol and Drug Abuse Patient Records regulations: The Federal rules restrict any use of the information to criminally investigate or prosecute any alcohol or drug abuse patient.[facility] CenterIn the event this information is protected by the Federal Confidentiality of Alcohol and Drug Abuse Patient Records regulations: The Federal rules restrict any use of the information to criminally investigate or prosecute any alcohol or drug abuse patient.[facility] CenterIn the event this information is protected by the Federal Confidentiality of Alcohol and Drug Abuse Patient Records regulations: The Federal rules restrict any use of the information to criminally investigate or prosecute any alcohol or drug abuse patient.[facility] CenterIn the event this information is protected by the Federal Confidentiality of Alcohol and Drug Abuse Patient Records regulations: The Federal rules restrict any use of the information to criminally investigate or prosecute any alcohol or drug abuse patient.[facility] CenterIn the event this information is protected by the Federal Confidentiality of Alcohol and Drug Abuse Patient Records regulations: The Federal rules restrict any use of the information to criminally investigate or prosecute any alcohol or drug abuse patient.[facility] CenterIn the event this information is protected by the Federal Confidentiality of Alcohol and Drug Abuse Patient Records regulations: The Federal rules restrict any use of the information to criminally investigate or prosecute any alcohol or drug abuse patient.[facility] CenterIn the event this information is protected by the Federal Confidentiality of Alcohol and Drug Abuse Patient Records regulations: The Federal rules restrict any use of the information to criminally investigate or prosecute any alcohol or drug abuse patient.[facility] CenterIn the event this information is protected by the Federal Confidentiality of Alcohol and Drug Abuse Patient Records regulations: The Federal rules restrict any use of the information to criminally investigate or prosecute any alcohol or drug abuse patient.[facility] CenterIn the event this information is protected by the Federal Confidentiality of Alcohol and Drug Abuse Patient Records regulations: The Federal rules restrict any use of the information to criminally investigate or prosecute any alcohol or drug abuse patient.[facility] CenterIn the event this information is protected by the Federal Confidentiality of Alcohol and Drug Abuse Patient Records regulations: The Federal rules restrict any use of the information to criminally investigate or prosecute any alcohol or drug abuse patient.[facility] CenterIn the event this information is protected by the Federal Confidentiality of Alcohol and Drug Abuse Patient Records regulations: The Federal rules restrict any use of the information to criminally investigate or prosecute any alcohol or drug abuse patient.[facility] CenterIn the event this information is protected by the Federal Confidentiality of Alcohol and Drug Abuse Patient Records regulations: The Federal rules restrict any use of the information to criminally investigate or prosecute any alcohol or drug abuse patient.[facility] CenterIn the event this information is protected by the Federal Confidentiality of Alcohol and Drug Abuse Patient Records regulations: The Federal rules restrict any use of the information to criminally investigate or prosecute any alcohol or drug abuse patient.[facility] CenterIn the event this information is protected by the Federal Confidentiality of Alcohol and Drug Abuse Patient Records regulations: The Federal rules restrict any use of the information to criminally investigate or prosecute any alcohol or drug abuse patient.[facility] CenterIn the event this information is protected by the Federal Confidentiality of Alcohol and Drug Abuse Patient Records regulations: The Federal rules restrict any use of the information to criminally investigate or prosecute any alcohol or drug abuse patient.[facility] CenterIn the event this information is protected by the Federal Confidentiality of Alcohol and Drug Abuse Patient Records regulations: The Federal rules restrict any use of the information to criminally investigate or prosecute any alcohol or drug abuse patient.[facility] CenterIn the event this information is protected by the Federal Confidentiality of Alcohol and Drug Abuse Patient Records regulations: The Federal rules restrict any use of the information to criminally investigate or prosecute any alcohol or drug abuse patient.[facility] CenterIn the event this information is protected by the Federal Confidentiality of Alcohol and Drug Abuse Patient Records regulations: The Federal rules restrict any use of the information to criminally investigate or prosecute any alcohol or drug abuse patient.[facility] CenterIn the event this information is protected by the Federal Confidentiality of Alcohol and Drug Abuse Patient Records regulations: The Federal rules restrict any use of the information to criminally investigate or prosecute any alcohol or drug abuse patient.[facility] CenterIn the event this information is protected by the Federal Confidentiality of Alcohol and Drug Abuse Patient Records regulations: The Federal rules restrict any use of the information to criminally investigate or prosecute any alcohol or drug abuse patient.[facility] CenterIn the event this information is protected by the Federal Confidentiality of Alcohol and Drug Abuse Patient Records regulations: The Federal rules restrict any use of the information to criminally investigate or prosecute any alcohol or drug abuse patient.[facility] CenterIn the event this information is protected by the Federal Confidentiality of Alcohol and Drug Abuse Patient Records regulations: The Federal rules restrict any use of the information to criminally investigate or prosecute any alcohol or drug abuse patient.[facility] CenterIn the event this information is protected by the Federal Confidentiality of Alcohol and Drug Abuse Patient Records regulations: The Federal rules restrict any use of the information to criminally investigate or prosecute any alcohol or drug abuse patient.[facility] CenterIn the event this information is protected by the Federal Confidentiality of Alcohol and Drug Abuse Patient Records regulations: The Federal rules restrict any use of the information to criminally investigate or prosecute any alcohol or drug abuse patient.[facility] CenterIn the event this information is protected by the Federal Confidentiality of Alcohol and Drug Abuse Patient Records regulations: The Federal rules restrict any use of the information to criminally investigate or prosecute any alcohol or drug abuse patient.[facility] CenterIn the event this information is protected by the Federal Confidentiality of Alcohol and Drug Abuse Patient Records regulations: The Federal rules restrict any use of the information to criminally investigate or prosecute any alcohol or drug abuse patient.[facility] CenterIn the event this information is protected by the Federal Confidentiality of Alcohol and Drug Abuse Patient Records regulations: The Federal rules restrict any use of the information to criminally investigate or prosecute any alcohol or drug abuse patient.[facility] CenterIn the event this information is protected by the Federal Confidentiality of Alcohol and Drug Abuse Patient Records regulations: The Federal rules restrict any use of the information to criminally investigate or prosecute any alcohol or drug abuse patient.[facility] CenterIn the event this information is protected by the Federal Confidentiality of Alcohol and Drug Abuse Patient Records regulations: The Federal rules restrict any use of the information to criminally investigate or prosecute any alcohol or drug abuse patient.[facility] CenterIn the event this information is protected by the Federal Confidentiality of Alcohol and Drug Abuse Patient Records regulations: The Federal rules restrict any use of the information to criminally investigate or prosecute any alcohol or drug abuse patient.[facility] CenterIn the event this information is protected by the Federal Confidentiality of Alcohol and Drug Abuse Patient Records regulations: The Federal rules restrict any use of the information to criminally investigate or prosecute any alcohol or drug abuse patient.[facility] CenterIn the event this information is protected by the Federal Confidentiality of Alcohol and Drug Abuse Patient Records regulations: The Federal rules restrict any use of the information to criminally investigate or prosecute any alcohol or drug abuse patient.[facility] CenterIn the event this information is protected by the Federal Confidentiality of Alcohol and Drug Abuse Patient Records regulations: The Federal rules restrict any use of the information to criminally investigate or prosecute any alcohol or drug abuse patient.[facility] CenterIn the event this information is protected by the Federal Confidentiality of Alcohol and Drug Abuse Patient Records regulations: The Federal rules restrict any use of the information to criminally investigate or prosecute any alcohol or drug abuse patient.[facility] CenterIn the event this information is protected by the Federal Confidentiality of Alcohol and Drug Abuse Patient Records regulations: The Federal rules restrict any use of the information to criminally investigate or prosecute any alcohol or drug abuse patient.[facility] CenterIn the event this information is protected by the Federal Confidentiality of Alcohol and Drug Abuse Patient Records regulations: The Federal rules restrict any use of the information to criminally investigate or prosecute any alcohol or drug abuse patient.[facility] CenterIn the event this information is protected by the Federal Confidentiality of Alcohol and Drug Abuse Patient Records regulations: The Federal rules restrict any use of the information to criminally investigate or prosecute any alcohol or drug abuse patient.[facility] CenterIn the event this information is protected by the Federal Confidentiality of Alcohol and Drug Abuse Patient Records regulations: The Federal rules restrict any use of the information to criminally investigate or prosecute any alcohol or drug abuse patient.[facility] CenterIn the event this information is protected by the Federal Confidentiality of Alcohol and Drug Abuse Patient Records regulations: The Federal rules restrict any use of the information to criminally investigate or prosecute any alcohol or drug abuse patient.[facility] CenterIn the event this information is protected by the Federal Confidentiality of Alcohol and Drug Abuse Patient Records regulations: The Federal rules restrict any use of the information to criminally investigate or prosecute any alcohol or drug abuse patient.[facility] CenterIn the event this information is protected by the Federal Confidentiality of Alcohol and Drug Abuse Patient Records regulations: The Federal rules restrict any use of the information to criminally investigate or prosecute any alcohol or drug abuse patient.[facility] CenterIn the event this information is protected by the Federal Confidentiality of Alcohol and Drug Abuse Patient Records regulations: The Federal rules restrict any use of the information to criminally investigate or prosecute any alcohol or drug abuse patient.[facility] CenterIn the event this information is protected by the Federal Confidentiality of Alcohol and Drug Abuse Patient Records regulations: The Federal rules restrict any use of the information to criminally investigate or prosecute any alcohol or drug abuse patient.[facility] CenterIn the event this information is protected by the Federal Confidentiality of Alcohol and Drug Abuse Patient Records regulations: The Federal rules restrict any use of the information to criminally investigate or prosecute any alcohol or drug abuse patient.[facility] CenterIn the event this information is protected by the Federal Confidentiality of Alcohol and Drug Abuse Patient Records regulations: The Federal rules restrict any use of the information to criminally investigate or prosecute any alcohol or drug abuse patient.[facility] CenterIn the event this information is protected by the Federal Confidentiality of Alcohol and Drug Abuse Patient Records regulations: The Federal rules restrict any use of the information to criminally investigate or prosecute any alcohol or drug abuse patient.[facility] CenterIn the event this information is protected by the Federal Confidentiality of Alcohol and Drug Abuse Patient Records regulations: The Federal rules restrict any use of the information to criminally investigate or prosecute any alcohol or drug abuse patient.[facility] CenterIn the event this information is protected by the Federal Confidentiality of Alcohol and Drug Abuse Patient Records regulations: The Federal rules restrict any use of the information to criminally investigate or prosecute any alcohol or drug abuse patient.[facility] CenterIn the event this information is protected by the Federal Confidentiality of Alcohol and Drug Abuse Patient Records regulations: The Federal rules restrict any use of the information to criminally investigate or prosecute any alcohol or drug abuse patient.[facility] CenterIn the event this information is protected by the Federal Confidentiality of Alcohol and Drug Abuse Patient Records regulations: The Federal rules restrict any use of the information to criminally investigate or prosecute any alcohol or drug abuse patient.[facility] CenterIn the event this information is protected by the Federal Confidentiality of Alcohol and Drug Abuse Patient Records regulations: The Federal rules restrict any use of the information to criminally investigate or prosecute any alcohol or drug abuse patient.[facility] CenterIn the event this information is protected by the Federal Confidentiality of Alcohol and Drug Abuse Patient Records regulations: The Federal rules restrict any use of the information to criminally investigate or prosecute any alcohol or drug abuse patient.[facility] CenterIn the event this information is protected by the Federal Confidentiality of Alcohol and Drug Abuse Patient Records regulations: The Federal rules restrict any use of the information to criminally investigate or prosecute any alcohol or drug abuse patient.[facility] CenterIn the event this information is protected by the Federal Confidentiality of Alcohol and Drug Abuse Patient Records regulations: The Federal rules restrict any use of the information to criminally investigate or prosecute any alcohol or drug abuse patient.[facility] CenterIn the event this information is protected by the Federal Confidentiality of Alcohol and Drug Abuse Patient Records regulations: The Federal rules restrict any use of the information to criminally investigate or prosecute any alcohol or drug abuse patient.[facility] CenterIn the event this information is protected by the Federal Confidentiality of Alcohol and Drug Abuse Patient Records regulations: The Federal rules restrict any use of the information to criminally investigate or prosecute any alcohol or drug abuse patient.[facility] CenterIn the event this information is protected by the Federal Confidentiality of Alcohol and Drug Abuse Patient Records regulations: The Federal rules restrict any use of the information to criminally investigate or prosecute any alcohol or drug abuse patient.[facility] CenterIn the event this information is protected by the Federal Confidentiality of Alcohol and Drug Abuse Patient Records regulations: The Federal rules restrict any use of the information to criminally investigate or prosecute any alcohol or drug abuse patient.[facility] CenterIn the event this information is protected by the Federal Confidentiality of Alcohol and Drug Abuse Patient Records regulations: The Federal rules restrict any use of the information to criminally investigate or prosecute any alcohol or drug abuse patient.[facility] CenterIn the event this information is protected by the Federal Confidentiality of Alcohol and Drug Abuse Patient Records regulations: The Federal rules restrict any use of the information to criminally investigate or prosecute any alcohol or drug abuse patient.[facility] CenterIn the event this information is protected by the Federal Confidentiality of Alcohol and Drug Abuse Patient Records regulations: The Federal rules restrict any use of the information to criminally investigate or prosecute any alcohol or drug abuse patient.[facility] CenterIn the event this information is protected by the Federal Confidentiality of Alcohol and Drug Abuse Patient Records regulations: The Federal rules restrict any use of the information to criminally investigate or prosecute any alcohol or drug abuse patient.[facility] CenterIn the event this information is protected by the Federal Confidentiality of Alcohol and Drug Abuse Patient Records regulations: The Federal rules restrict any use of the information to criminally investigate or prosecute any alcohol or drug abuse patient.[facility] CenterIn the event this information is protected by the Federal Confidentiality of Alcohol and Drug Abuse Patient Records regulations: The Federal rules restrict any use of the information to criminally investigate or prosecute any alcohol or drug abuse patient.[facility] CenterIn the event this information is protected by the Federal Confidentiality of Alcohol and Drug Abuse Patient Records regulations: The Federal rules restrict any use of the information to criminally investigate or prosecute any alcohol or drug abuse patient.[facility] CenterIn the event this information is protected by the Federal Confidentiality of Alcohol and Drug Abuse Patient Records regulations: The Federal rules restrict any use of the information to criminally investigate or prosecute any alcohol or drug abuse patient.[facility] CenterIn the event this information is protected by the Federal Confidentiality of Alcohol and Drug Abuse Patient Records regulations: The Federal rules restrict any use of the information to criminally investigate or prosecute any alcohol or drug abuse patient.[facility] CenterIn the event this information is protected by the Federal Confidentiality of Alcohol and Drug Abuse Patient Records regulations: The Federal rules restrict any use of the information to criminally investigate or prosecute any alcohol or drug abuse patient.[facility] CenterIn the event this information is protected by the Federal Confidentiality of Alcohol and Drug Abuse Patient Records regulations: The Federal rules restrict any use of the information to criminally investigate or prosecute any alcohol or drug abuse patient.[facility] CenterIn the event this information is protected by the Federal Confidentiality of Alcohol and Drug Abuse Patient Records regulations: The Federal rules restrict any use of the information to criminally investigate or prosecute any alcohol or drug abuse patient.[facility] CenterIn the event this information is protected by the Federal Confidentiality of Alcohol and Drug Abuse Patient Records regulations: The Federal rules restrict any use of the information to criminally investigate or prosecute any alcohol or drug abuse patient.[facility] CenterIn the event this information is protected by the Federal Confidentiality of Alcohol and Drug Abuse Patient Records regulations: The Federal rules restrict any use of the information to criminally investigate or prosecute any alcohol or drug abuse patient.[facility] CenterIn the event this information is protected by the Federal Confidentiality of Alcohol and Drug Abuse Patient Records regulations: The Federal rules restrict any use of the information to criminally investigate or prosecute any alcohol or drug abuse patient.[facility] CenterIn the event this information is protected by the Federal Confidentiality of Alcohol and Drug Abuse Patient Records regulations: The Federal rules restrict any use of the information to criminally investigate or prosecute any alcohol or drug abuse patient.[facility] CenterIn the event this information is protected by the Federal Confidentiality of Alcohol and Drug Abuse Patient Records regulations: The Federal rules restrict any use of the information to criminally investigate or prosecute any alcohol or drug abuse patient.[facility] CenterIn the event this information is protected by the Federal Confidentiality of Alcohol and Drug Abuse Patient Records regulations: The Federal rules restrict any use of the information to criminally investigate or prosecute any alcohol or drug abuse patient.[facility] CenterIn the event this information is protected by the Federal Confidentiality of Alcohol and Drug Abuse Patient Records regulations: The Federal rules restrict any use of the information to criminally investigate or prosecute any alcohol or drug abuse patient.[facility] CenterIn the event this information is protected by the Federal Confidentiality of Alcohol and Drug Abuse Patient Records regulations: The Federal rules restrict any use of the information to criminally investigate or prosecute any alcohol or drug abuse patient.[facility] CenterIn the event this information is protected by the Federal Confidentiality of Alcohol and Drug Abuse Patient Records regulations: The Federal rules restrict any use of the information to criminally investigate or prosecute any alcohol or drug abuse patient.[facility] CenterIn the event this information is protected by the Federal Confidentiality of Alcohol and Drug Abuse Patient Records regulations: The Federal rules restrict any use of the information to criminally investigate or prosecute any alcohol or drug abuse patient.[facility] CenterIn the event this information is protected by the Federal Confidentiality of Alcohol and Drug Abuse Patient Records regulations: The Federal rules restrict any use of the information to criminally investigate or prosecute any alcohol or drug abuse patient.[facility] CenterIn the event this information is protected by the Federal Confidentiality of Alcohol and Drug Abuse Patient Records regulations: The Federal rules restrict any use of the information to criminally investigate or prosecute any alcohol or drug abuse patient.[facility] CenterIn the event this information is protected by the Federal Confidentiality of Alcohol and Drug Abuse Patient Records regulations: The Federal rules restrict any use of the information to criminally investigate or prosecute any alcohol or drug abuse patient.[facility] CenterIn the event this information is protected by the Federal Confidentiality of Alcohol and Drug Abuse Patient Records regulations: The Federal rules restrict any use of the information to criminally investigate or prosecute any alcohol or drug abuse patient.[facility] CenterIn the event this information is protected by the Federal Confidentiality of Alcohol and Drug Abuse Patient Records regulations: The Federal rules restrict any use of the information to criminally investigate or prosecute any alcohol or drug abuse patient.[facility] CenterIn the event this information is protected by the Federal Confidentiality of Alcohol and Drug Abuse Patient Records regulations: The Federal rules restrict any use of the information to criminally investigate or prosecute any alcohol or drug abuse patient.[facility] CenterIn the event this information is protected by the Federal Confidentiality of Alcohol and Drug Abuse Patient Records regulations: The Federal rules restrict any use of the information to criminally investigate or prosecute any alcohol or drug abuse patient.[facility] CenterIn the event this information is protected by the Federal Confidentiality of Alcohol and Drug Abuse Patient Records regulations: The Federal rules restrict any use of the information to criminally investigate or prosecute any alcohol or drug abuse patient.[facility] CenterIn the event this information is protected by the Federal Confidentiality of Alcohol and Drug Abuse Patient Records regulations: The Federal rules restrict any use of the information to criminally investigate or prosecute any alcohol or drug abuse patient.[facility] CenterIn the event this information is protected by the Federal Confidentiality of Alcohol and Drug Abuse Patient Records regulations: The Federal rules restrict any use of the information to criminally investigate or prosecute any alcohol or drug abuse patient.[facility] CenterIn the event this information is protected by the Federal Confidentiality of Alcohol and Drug Abuse Patient Records regulations: The Federal rules restrict any use of the information to criminally investigate or prosecute any alcohol or drug abuse patient.[facility] CenterIn the event this information is protected by the Federal Confidentiality of Alcohol and Drug Abuse Patient Records regulations: The Federal rules restrict any use of the information to criminally investigate or prosecute any alcohol or drug abuse patient.[facility] CenterIn the event this information is protected by the Federal Confidentiality of Alcohol and Drug Abuse Patient Records regulations: The Federal rules restrict any use of the information to criminally investigate or prosecute any alcohol or drug abuse patient.[facility] CenterIn the event this information is protected by the Federal Confidentiality of Alcohol and Drug Abuse Patient Records regulations: The Federal rules restrict any use of the information to criminally investigate or prosecute any alcohol or drug abuse patient.[facility] CenterIn the event this information is protected by the Federal Confidentiality of Alcohol and Drug Abuse Patient Records regulations: The Federal rules restrict any use of the information to criminally investigate or prosecute any alcohol or drug abuse patient.[facility] CenterIn the event this information is protected by the Federal Confidentiality of Alcohol and Drug Abuse Patient Records regulations: The Federal rules restrict any use of the information to criminally investigate or prosecute any alcohol or drug abuse patient.[facility] CenterIn the event this information is protected by the Federal Confidentiality of Alcohol and Drug Abuse Patient Records regulations: The Federal rules restrict any use of the information to criminally investigate or prosecute any alcohol or drug abuse patient.[facility] CenterIn the event this information is protected by the Federal Confidentiality of Alcohol and Drug Abuse Patient Records regulations: The Federal rules restrict any use of the information to criminally investigate or prosecute any alcohol or drug abuse patient.[facility] CenterIn the event this information is protected by the Federal Confidentiality of Alcohol and Drug Abuse Patient Records regulations: The Federal rules restrict any use of the information to criminally investigate or prosecute any alcohol or drug abuse patient.[facility] CenterIn the event this information is protected by the Federal Confidentiality of Alcohol and Drug Abuse Patient Records regulations: The Federal rules restrict any use of the information to criminally investigate or prosecute any alcohol or drug abuse patient.[facility] CenterIn the event this information is protected by the Federal Confidentiality of Alcohol and Drug Abuse Patient Records regulations: The Federal rules restrict any use of the information to criminally investigate or prosecute any alcohol or drug abuse patient.[facility] CenterIn the event this information is protected by the Federal Confidentiality of Alcohol and Drug Abuse Patient Records regulations: The Federal rules restrict any use of the information to criminally investigate or prosecute any alcohol or drug abuse patient.[facility] CenterIn the event this information is protected by the Federal Confidentiality of Alcohol and Drug Abuse Patient Records regulations: The Federal rules restrict any use of the information to criminally investigate or prosecute any alcohol or drug abuse patient.[facility] CenterIn the event this information is protected by the Federal Confidentiality of Alcohol and Drug Abuse Patient Records regulations: The Federal rules restrict any use of the information to criminally investigate or prosecute any alcohol or drug abuse patient.[facility] CenterIn the event this information is protected by the Federal Confidentiality of Alcohol and Drug Abuse Patient Records regulations: The Federal rules restrict any use of the information to criminally investigate or prosecute any alcohol or drug abuse patient.[facility] CenterIn the event this information is protected by the Federal Confidentiality of Alcohol and Drug Abuse Patient Records regulations: The Federal rules restrict any use of the information to criminally investigate or prosecute any alcohol or drug abuse patient.[facility] CenterIn the event this information is protected by the Federal Confidentiality of Alcohol and Drug Abuse Patient Records regulations: The Federal rules restrict any use of the information to criminally investigate or prosecute any alcohol or drug abuse patient.[facility] CenterIn the event this information is protected by the Federal Confidentiality of Alcohol and Drug Abuse Patient Records regulations: The Federal rules restrict any use of the information to criminally investigate or prosecute any alcohol or drug abuse patient.[facility] CenterIn the event this information is protected by the Federal Confidentiality of Alcohol and Drug Abuse Patient Records regulations: The Federal rules restrict any use of the information to criminally investigate or prosecute any alcohol or drug abuse patient.[facility] CenterIn the event this information is protected by the Federal Confidentiality of Alcohol and Drug Abuse Patient Records regulations: The Federal rules restrict any use of the information to criminally investigate or prosecute any alcohol or drug abuse patient.[facility] CenterIn the event this information is protected by the Federal Confidentiality of Alcohol and Drug Abuse Patient Records regulations: The Federal rules restrict any use of the information to criminally investigate or prosecute any alcohol or drug abuse patient.[facility] CenterIn the event this information is protected by the Federal Confidentiality of Alcohol and Drug Abuse Patient Records regulations: The Federal rules restrict any use of the information to criminally investigate or prosecute any alcohol or drug abuse patient.[facility] CenterIn the event this information is protected by the Federal Confidentiality of Alcohol and Drug Abuse Patient Records regulations: The Federal rules restrict any use of the information to criminally investigate or prosecute any alcohol or drug abuse patient.[facility] CenterIn the event this information is protected by the Federal Confidentiality of Alcohol and Drug Abuse Patient Records regulations: The Federal rules restrict any use of the information to criminally investigate or prosecute any alcohol or drug abuse patient.[facility] CenterIn the event this information is protected by the Federal Confidentiality of Alcohol and Drug Abuse Patient Records regulations: The Federal rules restrict any use of the information to criminally investigate or prosecute any alcohol or drug abuse patient.[facility] CenterIn the event this information is protected by the Federal Confidentiality of Alcohol and Drug Abuse Patient Records regulations: The Federal rules restrict any use of the information to criminally investigate or prosecute any alcohol or drug abuse patient.[facility] CenterIn the event this information is protected by the Federal Confidentiality of Alcohol and Drug Abuse Patient Records regulations: The Federal rules restrict any use of the information to criminally investigate or prosecute any alcohol or drug abuse patient.[facility] CenterIn the event this information is protected by the Federal Confidentiality of Alcohol and Drug Abuse Patient Records regulations: The Federal rules restrict any use of the information to criminally investigate or prosecute any alcohol or drug abuse patient.[facility] CenterIn the event this information is protected by the Federal Confidentiality of Alcohol and Drug Abuse Patient Records regulations: The Federal rules restrict any use of the information to criminally investigate or prosecute any alcohol or drug abuse patient.[facility] CenterIn the event this information is protected by the Federal Confidentiality of Alcohol and Drug Abuse Patient Records regulations: The Federal rules restrict any use of the information to criminally investigate or prosecute any alcohol or drug abuse patient.[facility] CenterIn the event this information is protected by the Federal Confidentiality of Alcohol and Drug Abuse Patient Records regulations: The Federal rules restrict any use of the information to criminally investigate or prosecute any alcohol or drug abuse patient.[facility] CenterIn the event this information is protected by the Federal Confidentiality of Alcohol and Drug Abuse Patient Records regulations: The Federal rules restrict any use of the information to criminally investigate or prosecute any alcohol or drug abuse patient.[facility] CenterIn the event this information is protected by the Federal Confidentiality of Alcohol and Drug Abuse Patient Records regulations: The Federal rules restrict any use of the information to criminally investigate or prosecute any alcohol or drug abuse patient.[facility] CenterIn the event this information is protected by the Federal Confidentiality of Alcohol and Drug Abuse Patient Records regulations: The Federal rules restrict any use of the information to criminally investigate or prosecute any alcohol or drug abuse patient.[facility] CenterIn the event this information is protected by the Federal Confidentiality of Alcohol and Drug Abuse Patient Records regulations: The Federal rules restrict any use of the information to criminally investigate or prosecute any alcohol or drug abuse patient.[facility] CenterIn the event this information is protected by the Federal Confidentiality of Alcohol and Drug Abuse Patient Records regulations: The Federal rules restrict any use of the information to criminally investigate or prosecute any alcohol or drug abuse patient.[facility] CenterIn the event this information is protected by the Federal Confidentiality of Alcohol and Drug Abuse Patient Records regulations: The Federal rules restrict any use of the information to criminally investigate or prosecute any alcohol or drug abuse patient.[facility] CenterIn the event this information is protected by the Federal Confidentiality of Alcohol and Drug Abuse Patient Records regulations: The Federal rules restrict any use of the information to criminally investigate or prosecute any alcohol or drug abuse patient.[facility] CenterIn the event this information is protected by the Federal Confidentiality of Alcohol and Drug Abuse Patient Records regulations: The Federal rules restrict any use of the information to criminally investigate or prosecute any alcohol or drug abuse patient.[facility] CenterIn the event this information is protected by the Federal Confidentiality of Alcohol and Drug Abuse Patient Records regulations: The Federal rules restrict any use of the information to criminally investigate or prosecute any alcohol or drug abuse patient.[facility] CenterIn the event this information is protected by the Federal Confidentiality of Alcohol and Drug Abuse Patient Records regulations: The Federal rules restrict any use of the information to criminally investigate or prosecute any alcohol or drug abuse patient.[facility] CenterIn the event this information is protected by the Federal Confidentiality of Alcohol and Drug Abuse Patient Records regulations: The Federal rules restrict any use of the information to criminally investigate or prosecute any alcohol or drug abuse patient.[facility] CenterIn the event this information is protected by the Federal Confidentiality of Alcohol and Drug Abuse Patient Records regulations: The Federal rules restrict any use of the information to criminally investigate or prosecute any alcohol or drug abuse patient.[facility] CenterIn the event this information is protected by the Federal Confidentiality of Alcohol and Drug Abuse Patient Records regulations: The Federal rules restrict any use of the information to criminally investigate or prosecute any alcohol or drug abuse patient.[facility] CenterIn the event this information is protected by the Federal Confidentiality of Alcohol and Drug Abuse Patient Records regulations: The Federal rules restrict any use of the information to criminally investigate or prosecute any alcohol or drug abuse patient.[facility] CenterIn the event this information is protected by the Federal Confidentiality of Alcohol and Drug Abuse Patient Records regulations: The Federal rules restrict any use of the information to criminally investigate or prosecute any alcohol or drug abuse patient.[facility] CenterIn the event this information is protected by the Federal Confidentiality of Alcohol and Drug Abuse Patient Records regulations: The Federal rules restrict any use of the information to criminally investigate or prosecute any alcohol or drug abuse patient.[facility] CenterIn the event this information is protected by the Federal Confidentiality of Alcohol and Drug Abuse Patient Records regulations: The Federal rules restrict any use of the information to criminally investigate or prosecute any alcohol or drug abuse patient.[facility] CenterIn the event this information is protected by the Federal Confidentiality of Alcohol and Drug Abuse Patient Records regulations: The Federal rules restrict any use of the information to criminally investigate or prosecute any alcohol or drug abuse patient.[facility] CenterIn the event this information is protected by the Federal Confidentiality of Alcohol and Drug Abuse Patient Records regulations: The Federal rules restrict any use of the information to criminally investigate or prosecute any alcohol or drug abuse patient.[facility] CenterIn the event this information is protected by the Federal Confidentiality of Alcohol and Drug Abuse Patient Records regulations: The Federal rules restrict any use of the information to criminally investigate or prosecute any alcohol or drug abuse patient.[facility] CenterIn the event this information is protected by the Federal Confidentiality of Alcohol and Drug Abuse Patient Records regulations: The Federal rules restrict any use of the information to criminally investigate or prosecute any alcohol or drug abuse patient.[facility] CenterIn the event this information is protected by the Federal Confidentiality of Alcohol and Drug Abuse Patient Records regulations: The Federal rules restrict any use of the information to criminally investigate or prosecute any alcohol or drug abuse patient.[facility] CenterIn the event this information is protected by the Federal Confidentiality of Alcohol and Drug Abuse Patient Records regulations: The Federal rules restrict any use of the information to criminally investigate or prosecute any alcohol or drug abuse patient.[facility] CenterIn the event this information is protected by the Federal Confidentiality of Alcohol and Drug Abuse Patient Records regulations: The Federal rules restrict any use of the information to criminally investigate or prosecute any alcohol or drug abuse patient.[facility] CenterIn the event this information is protected by the Federal Confidentiality of Alcohol and Drug Abuse Patient Records regulations: The Federal rules restrict any use of the information to criminally investigate or prosecute any alcohol or drug abuse patient.[facility] CenterIn the event this information is protected by the Federal Confidentiality of Alcohol and Drug Abuse Patient Records regulations: The Federal rules restrict any use of the information to criminally investigate or prosecute any alcohol or drug abuse patient.[facility] CenterIn the event this information is protected by the Federal Confidentiality of Alcohol and Drug Abuse Patient Records regulations: The Federal rules restrict any use of the information to criminally investigate or prosecute any alcohol or drug abuse patient.[facility] CenterIn the event this information is protected by the Federal Confidentiality of Alcohol and Drug Abuse Patient Records regulations: The Federal rules restrict any use of the information to criminally investigate or prosecute any alcohol or drug abuse patient.[facility] CenterIn the event this information is protected by the Federal Confidentiality of Alcohol and Drug Abuse Patient Records regulations: The Federal rules restrict any use of the information to criminally investigate or prosecute any alcohol or drug abuse patient.[facility] CenterIn the event this information is protected by the Federal Confidentiality of Alcohol and Drug Abuse Patient Records regulations: The Federal rules restrict any use of the information to criminally investigate or prosecute any alcohol or drug abuse patient.[facility] CenterIn the event this information is protected by the Federal Confidentiality of Alcohol and Drug Abuse Patient Records regulations: The Federal rules restrict any use of the information to criminally investigate or prosecute any alcohol or drug abuse patient.[facility] CenterIn the event this information is protected by the Federal Confidentiality of Alcohol and Drug Abuse Patient Records regulations: The Federal rules restrict any use of the information to criminally investigate or prosecute any alcohol or drug abuse patient.[facility] CenterIn the event this information is protected by the Federal Confidentiality of Alcohol and Drug Abuse Patient Records regulations: The Federal rules restrict any use of the information to criminally investigate or prosecute any alcohol or drug abuse patient.[facility] CenterIn the event this information is protected by the Federal Confidentiality of Alcohol and Drug Abuse Patient Records regulations: The Federal rules restrict any use of the information to criminally investigate or prosecute any alcohol or drug abuse patient.[facility] CenterIn the event this information is protected by the Federal Confidentiality of Alcohol and Drug Abuse Patient Records regulations: The Federal rules restrict any use of the information to criminally investigate or prosecute any alcohol or drug abuse patient.[facility] CenterIn the event this information is protected by the Federal Confidentiality of Alcohol and Drug Abuse Patient Records regulations: The Federal rules restrict any use of the information to criminally investigate or prosecute any alcohol or drug abuse patient.[facility] CenterIn the event this information is protected by the Federal Confidentiality of Alcohol and Drug Abuse Patient Records regulations: The Federal rules restrict any use of the information to criminally investigate or prosecute any alcohol or drug abuse patient.[facility] CenterIn the event this information is protected by the Federal Confidentiality of Alcohol and Drug Abuse Patient Records regulations: The Federal rules restrict any use of the information to criminally investigate or prosecute any alcohol or drug abuse patient.[facility] CenterIn the event this information is protected by the Federal Confidentiality of Alcohol and Drug Abuse Patient Records regulations: The Federal rules restrict any use of the information to criminally investigate or prosecute any alcohol or drug abuse patient.[facility] CenterIn the event this information is protected by the Federal Confidentiality of Alcohol and Drug Abuse Patient Records regulations: The Federal rules restrict any use of the information to criminally investigate or prosecute any alcohol or drug abuse patient.[facility] CenterIn the event this information is protected by the Federal Confidentiality of Alcohol and Drug Abuse Patient Records regulations: The Federal rules restrict any use of the information to criminally investigate or prosecute any alcohol or drug abuse patient.[facility] CenterIn the event this information is protected by the Federal Confidentiality of Alcohol and Drug Abuse Patient Records regulations: The Federal rules restrict any use of the information to criminally investigate or prosecute any alcohol or drug abuse patient.[facility] CenterIn the event this information is protected by the Federal Confidentiality of Alcohol and Drug Abuse Patient Records regulations: The Federal rules restrict any use of the information to criminally investigate or prosecute any alcohol or drug abuse patient.[facility] CenterIn the event this information is protected by the Federal Confidentiality of Alcohol and Drug Abuse Patient Records regulations: The Federal rules restrict any use of the information to criminally investigate or prosecute any alcohol or drug abuse patient.[facility] CenterIn the event this information is protected by the Federal Confidentiality of Alcohol and Drug Abuse Patient Records regulations: The Federal rules restrict any use of the information to criminally investigate or prosecute any alcohol or drug abuse patient.[facility] CenterIn the event this information is protected by the Federal Confidentiality of Alcohol and Drug Abuse Patient Records regulations: The Federal rules restrict any use of the information to criminally investigate or prosecute any alcohol or drug abuse patient.[facility] CenterIn the event this information is protected by the Federal Confidentiality of Alcohol and Drug Abuse Patient Records regulations: The Federal rules restrict any use of the information to criminally investigate or prosecute any alcohol or drug abuse patient.[facility] CenterIn the event this information is protected by the Federal Confidentiality of Alcohol and Drug Abuse Patient Records regulations: The Federal rules restrict any use of the information to criminally investigate or prosecute any alcohol or drug abuse patient.[facility] CenterIn the event this information is protected by the Federal Confidentiality of Alcohol and Drug Abuse Patient Records regulations: The Federal rules restrict any use of the information to criminally investigate or prosecute any alcohol or drug abuse patient.[facility] CenterIn the event this information is protected by the Federal Confidentiality of Alcohol and Drug Abuse Patient Records regulations: The Federal rules restrict any use of the information to criminally investigate or prosecute any alcohol or drug abuse patient.[facility] CenterIn the event this information is protected by the Federal Confidentiality of Alcohol and Drug Abuse Patient Records regulations: The Federal rules restrict any use of the information to criminally investigate or prosecute any alcohol or drug abuse patient.[facility] CenterIn the event this information is protected by the Federal Confidentiality of Alcohol and Drug Abuse Patient Records regulations: The Federal rules restrict any use of the information to criminally investigate or prosecute any alcohol or drug abuse patient.[facility] CenterIn the event this information is protected by the Federal Confidentiality of Alcohol and Drug Abuse Patient Records regulations: The Federal rules restrict any use of the information to criminally investigate or prosecute any alcohol or drug abuse patient.[facility] CenterIn the event this information is protected by the Federal Confidentiality of Alcohol and Drug Abuse Patient Records regulations: The Federal rules restrict any use of the information to criminally investigate or prosecute any alcohol or drug abuse patient.[facility] CenterIn the event this information is protected by the Federal Confidentiality of Alcohol and Drug Abuse Patient Records regulations: The Federal rules restrict any use of the information to criminally investigate or prosecute any alcohol or drug abuse patient.[facility] CenterIn the event this information is protected by the Federal Confidentiality of Alcohol and Drug Abuse Patient Records regulations: The Federal rules restrict any use of the information to criminally investigate or prosecute any alcohol or drug abuse patient.[facility] CenterIn the event this information is protected by the Federal Confidentiality of Alcohol and Drug Abuse Patient Records regulations: The Federal rules restrict any use of the information to criminally investigate or prosecute any alcohol or drug abuse patient.[facility] CenterIn the event this information is protected by the Federal Confidentiality of Alcohol and Drug Abuse Patient Records regulations: The Federal rules restrict any use of the information to criminally investigate or prosecute any alcohol or drug abuse patient.[facility] CenterIn the event this information is protected by the Federal Confidentiality of Alcohol and Drug Abuse Patient Records regulations: The Federal rules restrict any use of the information to criminally investigate or prosecute any alcohol or drug abuse patient.[facility] CenterIn the event this information is protected by the Federal Confidentiality of Alcohol and Drug Abuse Patient Records regulations: The Federal rules restrict any use of the information to criminally investigate or prosecute any alcohol or drug abuse patient.[facility] CenterIn the event this information is protected by the Federal Confidentiality of Alcohol and Drug Abuse Patient Records regulations: The Federal rules restrict any use of the information to criminally investigate or prosecute any alcohol or drug abuse patient.[facility] CenterIn the event this information is protected by the Federal Confidentiality of Alcohol and Drug Abuse Patient Records regulations: The Federal rules restrict any use of the information to criminally investigate or prosecute any alcohol or drug abuse patient.[facility] CenterIn the event this information is protected by the Federal Confidentiality of Alcohol and Drug Abuse Patient Records regulations: The Federal rules restrict any use of the information to criminally investigate or prosecute any alcohol or drug abuse patient.[facility] CenterIn the event this information is protected by the Federal Confidentiality of Alcohol and Drug Abuse Patient Records regulations: The Federal rules restrict any use of the information to criminally investigate or prosecute any alcohol or drug abuse patient.[facility] CenterIn the event this information is protected by the Federal Confidentiality of Alcohol and Drug Abuse Patient Records regulations: The Federal rules restrict any use of the information to criminally investigate or prosecute any alcohol or drug abuse patient.[facility] CenterIn the event this information is protected by the Federal Confidentiality of Alcohol and Drug Abuse Patient Records regulations: The Federal rules restrict any use of the information to criminally investigate or prosecute any alcohol or drug abuse patient.[facility] CenterIn the event this information is protected by the Federal Confidentiality of Alcohol and Drug Abuse Patient Records regulations: The Federal rules restrict any use of the information to criminally investigate or prosecute any alcohol or drug abuse patient.[facility] CenterIn the event this information is protected by the Federal Confidentiality of Alcohol and Drug Abuse Patient Records regulations: The Federal rules restrict any use of the information to criminally investigate or prosecute any alcohol or drug abuse patient.[facility] CenterIn the event this information is protected by the Federal Confidentiality of Alcohol and Drug Abuse Patient Records regulations: The Federal rules restrict any use of the information to criminally investigate or prosecute any alcohol or drug abuse patient.[facility] CenterIn the event this information is protected by the Federal Confidentiality of Alcohol and Drug Abuse Patient Records regulations: The Federal rules restrict any use of the information to criminally investigate or prosecute any alcohol or drug abuse patient.[facility] CenterIn the event this information is protected by the Federal Confidentiality of Alcohol and Drug Abuse Patient Records regulations: The Federal rules restrict any use of the information to criminally investigate or prosecute any alcohol or drug abuse patient.[facility] CenterIn the event this information is protected by the Federal Confidentiality of Alcohol and Drug Abuse Patient Records regulations: The Federal rules restrict any use of the information to criminally investigate or prosecute any alcohol or drug abuse patient.[facility] CenterIn the event this information is protected by the Federal Confidentiality of Alcohol and Drug Abuse Patient Records regulations: The Federal rules restrict any use of the information to criminally investigate or prosecute any alcohol or drug abuse patient.[facility] CenterIn the event this information is protected by the Federal Confidentiality of Alcohol and Drug Abuse Patient Records regulations: The Federal rules restrict any use of the information to criminally investigate or prosecute any alcohol or drug abuse patient.[facility] CenterIn the event this information is protected by the Federal Confidentiality of Alcohol and Drug Abuse Patient Records regulations: The Federal rules restrict any use of the information to criminally investigate or prosecute any alcohol or drug abuse patient.[facility] CenterIn the event this information is protected by the Federal Confidentiality of Alcohol and Drug Abuse Patient Records regulations: The Federal rules restrict any use of the information to criminally investigate or prosecute any alcohol or drug abuse patient.[facility] CenterIn the event this information is protected by the Federal Confidentiality of Alcohol and Drug Abuse Patient Records regulations: The Federal rules restrict any use of the information to criminally investigate or prosecute any alcohol or drug abuse patient.[facility] CenterIn the event this information is protected by the Federal Confidentiality of Alcohol and Drug Abuse Patient Records regulations: The Federal rules restrict any use of the information to criminally investigate or prosecute any alcohol or drug abuse patient.[facility] CenterIn the event this information is protected by the Federal Confidentiality of Alcohol and Drug Abuse Patient Records regulations: The Federal rules restrict any use of the information to criminally investigate or prosecute any alcohol or drug abuse patient.[facility] CenterIn the event this information is protected by the Federal Confidentiality of Alcohol and Drug Abuse Patient Records regulations: The Federal rules restrict any use of the information to criminally investigate or prosecute any alcohol or drug abuse patient.[facility] CenterIn the event this information is protected by the Federal Confidentiality of Alcohol and Drug Abuse Patient Records regulations: The Federal rules restrict any use of the information to criminally investigate or prosecute any alcohol or drug abuse patient.[facility] CenterIn the event this information is protected by the Federal Confidentiality of Alcohol and Drug Abuse Patient Records regulations: The Federal rules restrict any use of the information to criminally investigate or prosecute any alcohol or drug abuse patient.[facility] CenterIn the event this information is protected by the Federal Confidentiality of Alcohol and Drug Abuse Patient Records regulations: The Federal rules restrict any use of the information to criminally investigate or prosecute any alcohol or drug abuse patient.[facility] CenterIn the event this information is protected by the Federal Confidentiality of Alcohol and Drug Abuse Patient Records regulations: The Federal rules restrict any use of the information to criminally investigate or prosecute any alcohol or drug abuse patient.[facility] CenterIn the event this information is protected by the Federal Confidentiality of Alcohol and Drug Abuse Patient Records regulations: The Federal rules restrict any use of the information to criminally investigate or prosecute any alcohol or drug abuse patient.[facility] CenterIn the event this information is protected by the Federal Confidentiality of Alcohol and Drug Abuse Patient Records regulations: The Federal rules restrict any use of the information to criminally investigate or prosecute any alcohol or drug abuse patient.[facility] CenterIn the event this information is protected by the Federal Confidentiality of Alcohol and Drug Abuse Patient Records regulations: The Federal rules restrict any use of the information to criminally investigate or prosecute any alcohol or drug abuse patient.[facility] CenterIn the event this information is protected by the Federal Confidentiality of Alcohol and Drug Abuse Patient Records regulations: The Federal rules restrict any use of the information to criminally investigate or prosecute any alcohol or drug abuse patient.[facility] Reason for Visit (unrecogniz ed [...] t Referred To Contact [facility] Home [facility] [address] [place] [id number] Referral ID Status Reason Start Date Expiration Date Visits Re quested Visits Authorized [id number] 1 1 Reason Onset Date Comments Community [...] Results - Mri Reason Onset Date Comments [facility] 08/29/2022 Telephonic outre ach Reason Comments Follow [...] Denies chest pain Reason Onset Date Comments [facility] 09/22/2022 Telephonic outre ach Reason Comments Patient Request Reason Comments Orders Reason Comments Abdominal Pain Follow up Reason Onset Date Comments Refill Request 01/04/2023 Reason Comments blisters/rash possible shingles Reason Comments Rash L arm and back of ne ck x 3 days Reason Onset Date Comments [facility] 01/16/2023 Routine outreach Reason Comments Shingles Reason Comments INR direction Reason Comments Patient Question INR/Coumadin Reason Onset Date Comments [facility] 02/14/2023 Routine outreach Reason Onset Date Comments Refill Request 02/22/2023 Reason Comments Anticoagulation Reason Onset Date Comments [facility] 03/15/2023 Routine outreach Reason Comments Radiology NM Specialty Diagnoses / Procedures Referred By Contac t Referred To Contact MOLECULAR & FUNCTIONAL IMAGING Diagnoses Elevated alkaline phosphatase level Procedures NM BONE WHOLE BODY BONE &/JOINT IMAGING WHOLE BODY Myah Mehta PA-C [address] [place] [address] Molecular & Functional Imaging [address] [place], [place] [id number] Referral ID Status Reason Start Date Expiration Date V isits Requested Visits Authorized [id number] Closed Auto-Generate d Referral 10/05/2022 11/04/2023 1 1 Reason Comments Radiology US Specialty Diagnoses / Procedures Referred By Contac t Referred To Contact US IMAGING Diagnoses Renal mass Liver mass Procedures US ABDOMEN COMPLETE US ABDOMINAL REAL TIME W/IMAGE DOCUMENTATION Christopher Bonilla MD [facility] [place] [address] [place] [address] Referral ID Status Reason Start Date Expiration Date V isits Requested Visits Authorized [id number] Closed Auto-Generate d Referral 09/01/2022 10/01/2023 1 1 Specialty Diagnoses / Procedures Referred By Contac t Referred To Contact MR IMAGING Diagnoses Pathological fracture, other site, initial encounter for fracture Procedures MRI THORACIC SPINE WO IVCON MRI SPINAL CANAL THORACIC W/O CONTRAST MATRL Myah Mehta PA-C [address] [place] [address] [place] [address] Referral ID Status Reason Start Date Expiration Date V isits Requested Visits Authorized [id number] Closed Auto-Generate d Referral 07/21/2022 08/20/2023 1 1 Specialty Diagnoses / Procedures Referred By Contac t Referred To Contact US IMAGING Diagnoses Thyroid nodule Procedures US THYROID/PARATHYROID US SOFT TISSUE HEAD & NECK REAL TIME IMGE DOCM Christopher Bonilla MD [facility] [place] [address] [place] [address] Referral ID Status Reason Start Date Expiration Date V isits Requested Visits Authorized [id number] Closed Auto-Generate d Referral 04/19/2022 05/19/2023 1 1 Reason Onset Date Comments CDM 04/11/2023 Routine outreach Reason Comments Results Critical INR Reason Comments Appointment Rescheduled Reason Onset Date Comments CDM 05/25/2023 Routine outreach Reason Onset Date Comments Refill Request 07/10/2023 Reason Comments Cough Productive cough for over a month Reason Onset Date Comments CDM 08/02/2023 Routine outreach Reason Onset Date Comments Refill Request; quantity change 08/03/2023 Refill Request 08/03/2023 Reason Onset Date Comments CDM 08/29/2023 Routine outreach Reason Onset Date Comments CDM 09/26/2023 Routine outreach Reason Onset Date Comments CDM 10/23/2023 Routine outreach Reason Onset Date Comments CDM 11/09/2023 Routine outreach Reason Comments 6 Month Exam Reason Comments [employer] - Other Reason Onset Date Comments Community Monitoring Outreach 12/06/2023 Fo llow Up Reason Onset Date Comments Community Monitoring Outreach 12/08/2023 Fo llow up Reason Onset Date Comments CDM 01/04/2024 Routine outreach Reason Onset Date Comments Refill Request 01/15/2024 Reason Onset Date Comments CMD 01/31/2024 Routine outreach Reason Onset Date Comments Refill Request 02/16/2024 Reason Onset Date Comments M 02/29/2024 Routine outreach Reason Onset Date Comments CDM 03/27/2024 Routine outreach Reason Onset Date Comments Refill Request 03/28/2024 Reason Onset Date Comments M 04/24/2024 Routine outreach Reason Comments Orders poc protime Reason Onset Date Comments CDM 05/15/2024 Routine outreach Reason Comments fax Gastro referral to Dr Flores Reason Comments INR check Reason Onset Date Comments Refill Request 07/22/2024 Reason Onset Date Comments Refill Request 10/03/2024 Reason Comments Medicare Wellness Exam Reason Onset Date Comments Transition Of Care 01/27/2025 Reason Comments correction plan of care Refill Request Reason Comments PT- [facility] POC and pt update Reason Comments Hospital Discharge Reason Comments OV notes faxed to [facility] Reason Onset Date Comments Anticoagulation 02/18/2025 Care Teams (unrecognized sec tion and content) Order Management Specialist Relationship Specialty Start Date End Date Christopher Bonilla MD [address] [place] [address] PCP - General Family Practice 10/10/17 Elisabeth Shannon, public events facilities rental managerManager Operations Research 02/11/21 Junaid Arriaga [address] [place] [address] Physician Cardiology 05/04/21 Order Management Specialist Relationship Specialty Start Date End Date Christopher Bonilla MD [address] [place] [address] PCP - General Family Practice 10/10/17 Elisabeth Shannon, public events facilities rental managerManager Operations Research 02/11/21 Junaid Arriaga [address] [place] [address] Physician Cardiology 05/04/21 Order Management Specialist Relationship Specialty Start Date End Date Christopher Bonilla MD [address] [place] [address] PCP - General Family Practice 10/10/17 Elisabeth Shannon, public events facilities rental managerManager Operations Research 02/11/21 Junaid Arriaga [address] [place] [address] Physician Cardiology 05/04/21 Order Management Specialist Relationship Specialty Start Date End Date Christopher Bonilla MD [address] [place] [address] PCP - General Family Practice 10/10/17 Elisabeth Shannon, public events facilities rental managerManager Operations Research 02/11/21 Junaid Arriaga [address] [place] [address] Physician Cardiology 05/04/21 Order Management Specialist Relationship Specialty Start Date End Date Christopher Bonilla MD [address] [place] [address] PCP - General Family Practice 10/10/17 Elisabeth Shannon, public events facilities rental managerManager Operations Research 02/11/21 Junaid Arriaga [address] [place] [address] Physician Cardiology 05/04/21 Santos Calvin [address] [place] [address] Physician Urology 09/13/21 Order Management Specialist Relationship Specialty Start Date End Date Christopher Bonilla MD [address] [facility] [place] [address] PCP - General Family Practice 10/10/17 Elisabeth Shannon, public events facilities rental managerManager Operations Research 02/11/21 Junaid Arriaga [address] [place] [address] Physician Cardiology 05/04/21 Santos Calvin Miguel [address] [place] [address] Physician Urology 09/13/21 Order Management Specialist Relationship Specialty Start Date End Date Christopher Bonilla MD [address] [facility] [place] [address] PCP - General Family Practice 10/10/17 Elisabeth Shannon, public events facilities rental managerManager Operations Research 02/11/21 Junaid Arriaga [address] [facility] [address] [place] [address] Physician Cardiology 05/04/21 Santos Calvinuel [address] [place] [address] Physician Urology 09/13/21 Order Management Specialist Relationship Specialty Start Date End Date Christopher Bonilla MD [address] [facility] [place] [address] PCP - General Family Practice 10/10/17 Elisabeth Shannon, public events facilities rental managerManager Operations Research 02/11/21 Junaid Arriaga [address] [place] [address] Physician Cardiology 05/04/21 Santos Calvin Miguel [address] [place] [address] [place] [address] Physician Urology 09/13/21 Order Management Specialist Relationship Specialty Start Date End Date Christopher Bonilla MD [address] [facility] [place] [address] PCP - General Family Practice 10/10/17 Elisabeth Shannon, public events facilities rental managerManager Operations Research 02/11/21 Junaid Arriaga [address] [facility] [address] [place] [address] Physician Cardiology 05/04/21 Santos Calvin Miguel [address] [address] [place] [address] Physician Urology 09/13/21 Order Management Specialist Relationship Specialty Start Date End Date Christopher Bonilla MD [address] [facility] [place] [address] PCP - General Family Practice 10/10/17 Elisabeth Shannon, public events facilities rental managerManager Operations Research 02/11/21 Junaid rAriaga [address] [facility] [address] [place] [address] Physician Cardiology 05/04/21 Santos Calvin Miguel [address] [address] [place] [address] Physician Urology 09/13/21 Order Management Specialist Relationship Specialty Start Date End Date Christopher Bonilla MD [address] [facility] [place] [address] PCP - General Family Practice 10/10/17 Elisabeth Shannon RN [address] [place] [address] Manager Operations Research 02/11/21 Junaid Arriaga [address] [place] [address] Physician Cardiology 05/04/[address] [address] Physician Urology 09/13/21 Order Management Specialist Relationship Specialty Start Date End Date Christopher Bonilla MD [address] [facility] [place] [address] PCP - General Family Practice 10/10/17 lEisabeth Shannon RN [address] [place] [address] Manager Operations Research 02/11/21 Junaid Arriaga [address] [address] Physician Cardiology 05/04/[address] [address] Physician Urology 09/13/21 Order Management Specialist Relationship Specialty Start Date End Date Christopher Bonilla MD [address] [facility] [place] [address] PCP - General Family Practice 10/10/17 Elisabeth Shannon RN [address] [place] [address] Manager Operations Research 02/11/21 Junaid Ariraga [address] [facility] [address] [place] [address] Physician Cardiology 05/04/21 Santos Calvinuel [address] [place] [address] Physician Urology 09/13/21 Order Management Specialist Relationship Specialty Start Date End Date Christopher Bonilla MD [address] [facility] [place] [address] PCP - General Family Practice 10/10/17 Elisabeth Shannon, RN [address] [place], [place] [id number] Manager Operations Research 02/11/21 Junaid Arriaga [address] [place] [address] Physician Cardiology 05/04/21 Santos Calvin Miguel [address] [place] [address] Physician Urology 09/13/21 Order Management Specialist Relationship Specialty Start Date End Date Christopher Bonilla MD [address] [facility] [place] [address] PCP - General Family Practice 10/10/17 Elisabeth Shannon, RN [address] [place] [address] Manager Operations Research 02/11/21 Junaid Arriaga [address] [place] [address] Physician Cardiology 05/04/21 NikunjSantosJose [address] [place] [address] Physician Urology 09/13/21 Flaquito Mariee [address] [place] [address] Salesperson Driver Pulmonary Disease 10/25/21 Order Management Specialist Relationship Specialty Start Date End Date Christopher Bonilla MD [address] [facility] [place] [address] PCP - General Family Practice 10/10/17 Elisabeth Shannon, RN [address] [place] [address] Manager Operations Research 02/11/21 Junaid Arriaga [address] [place] [address] Physician Cardiology 05/04/21 Santos Calvin [address] [place] [address] Physician Urology 09/13/21 Flaquito Mariee [address] [place] [address] Salesperson Driver Pulmonary Disease 10/25/21 Order Management Specialist Relationship Specialty Start Date End Date Christopher Bonilla MD [address] [facility] [place] [address] PCP - General Family Practice 10/10/17 Elisabeth Shannon, RN [address] [place] [address] Manager Operations Research 02/11/21 Junaid Arriaga [address] [place] [address] Physician Cardiology 05/04/21 Santos Calvin [address] [address] Physician Urology 09/13/21 Flaquito Mariee [address] [place] [address] Salesperson Driver Pulmonary Disease 10/25/21 Order Management Specialist Relationship Specialty Start Date End Date Christopher Bonilla MD [address] [facility] [place] [address] PCP - General Family Practice 10/10/17 Elisabeth Shannon, RN [address] [place] [address] Manager Operations Research 02/11/21 Junaid Arriaga [address] [facility] [address] [address] Physician Cardiology 05/04/21 Santos Calvin [address] [address] Physician Urology 09/13/21 Flaquito Mariee [address] [facility] [address] [place] [address] Salesperson Driver Pulmonary Disease 10/25/21 Order Management Specialist Relationship Specialty Start Date End Date Christopher Bonilla MD [address] [place] [address] PCP - General Family Practice 10/10/17 Elisabeth Shannon, RN [address] [place] [address] Manager Operations Research 02/11/21 Junaid Arriaga [address] [address] Physician Cardiology 05/04/21 Santos Calvin [address] [place] [address] Physician Urology 09/13/21 Flaquito Mariee [address] [place] [address] Salesperson Driver Pulmonary Disease 10/25/21 Order Management Specialist Relationship Specialty Start Date End Date Christopher Bonilla MD [address] [facility] [place] [address] PCP - General Family Practice 10/10/17 Elisabeth Shannon, RN [address] [place] [address] Manager Operations Research 02/11/21 Junaid Arriaga [address] [address] Physician Cardiology 05/04/21 Santos Calvin [address] [address] Physician Urology 09/13/21 Flaquito Mariee [address] [place] [address] Salesperson Driver Pulmonary Disease 10/25/21 Order Management Specialist Relationship Specialty Start Date End Date Christopher Bonilla MD [address] [place] [address] PCP - General Family Practice 10/10/17 Elisabeth Shannon, RN [address] [place] [address] Manager Operations Research 02/11/21 Junaid Arriaga [address] [address] Physician Cardiology 05/04/21 Santos Calvin [address] [address] Physician Urology 09/13/21 Flaquito Mariee [address] [place] [address] Salesperson Driver Pulmonary Disease 10/25/21 Order Management Specialist Relationship Specialty Start Date End Date Christopher Bonilla MD [address] [facility] [place] [address] PCP - General Family Practice 10/10/17 Elisabeth Shannon RN [address] [place] [address] Manager Operations Research 02/11/21 Junaid Arrigaa [address] [place] [address] Physician Cardiology 05/04/21 Santos Calvin [address] [place] [address] Physician Urology 09/13/21 Flaquito Mariee [address] [place] [address] Salesperson Driver Pulmonary Disease 10/25/21 Christopher Bonilla MD [address] [facility] [place] [address] Home Care Physician Family Practice 02/03/22 Order Management Specialist Relationship Specialty Start Date End Date Christopher Bonilla MD [address] [facility] [place] [address] PCP - General Family Practice 10/10/17 Elisabeth Shannon RN [address] [place] [address] Manager Operations Research 02/11/21 Junaid Arriaga [address] [place] [address] Physician Cardiology 05/04/21 Santos Calvin [address] [place] [address] Physician Urology 09/13/[address] Flaquito Mariee [address] [place] [address] Salesperson Driver Pulmonary Disease 10/25/21 Christopher Bonilla MD [address] [place], [place] [address] Home Care Physician Family Practice 02/03/22 Mera Langford MD [address] [place], [place] [id number] Referring 02/04/22 Erik Hassan RN [address] [place], [place] [id number] Elocution Teacher Post Acute Care 02/08/22 Order Management Specialist Relationship Specialty Start Date End Date Christopher Bonilla MD [address] [place], [place] [id number] PCP - General Family Practice 10/10/17 Elisabeth Shannon RN [address] [place] [address] Manager Operations Research 02/11/21 Junaid Arriaga [address] [facility] [address] [place] [address] Physician Cardiology 05/04/21 Santos Calvin [address] [place] [address] [address] [place] [address] Physician Urology 09/13/21 Flaquito Mariee [address] [facility] [place] [address] Salesperson Driver Pulmonary Disease 10/25/21 Christopher Bonilla MD [address] [place] [id number] Home Care Physician Family Practice 02/03/22 Mera Langford MD [address] [place], [place] [phone] Referring 02/04/22 Erik Hassan RN [address] [place], [place] [phone] Elocution Teacher Post Acute Care 02/08/22 Order Management Specialist Relationship Specialty Start Date End Date Christopher Bonilla MD [address] [place] [address] PCP - General Family Practice 10/10/17 Elisabeth Shannon RN [address] [place] [address] Manager Operations Research 02/11/21 Junaid Arriaga 1761 [facility] 3A [place] [address] Physician Cardiology 05/04/21 Santos Calvin [address] [place] [address] [address] [place] [address] Physician Urology 09/13/21 Flaquito Mariee 1761 [facility] [place] [address] Salesperson Driver Pulmonary Disease 10/25/21 Christopher Bonilla MD [address] [place] [address] Home Care Physician Family Practice 02/03/22 Mera Langford MD [address] [place], [place] [phone] Referring 02/04/22 Erik Hassan RN [address] [place], [place] [phone] Elocution Teacher Post Acute Care 02/08/22 Order Management Specialist Relationship Specialty Start Date End Date Christopher Bonilla MD [address] [place], [place] [id number] PCP - General Family Practice 10/10/17 Elisabeth Shannon RN [address] [place] [address] Manager Operations Research 02/11/21 Junaid Arriaga [address] [place] [facility] [address] [place] [address] Physician Cardiology 05/04/21 Santos Calvin [address] [address] Physician Urology 09/13/21 Flaquito Mariee [address] [facility] [place] [address] Salesperson Driver Pulmonary Disease 10/25/21 Christopher Bonilla MD [address] [place], [place] 905011 Home Care Physician Family Practice 02/03/22 Mera Langford MD [address] [place], [place] [phone] Referring 02/04/22 Erik Hassan, [place] [address] [place] [address] Elocution Teacher Post Acute Care 02/08/22 Order Management Specialist Relationship Specialty Start Date End Date Christopher Bonilla MD [address] [place], [place] 662561 PCP - General Family Practice 10/10/17 Elisabeth Shannon RN [address] [place] [address] Manager Operations Research 02/11/21 Junaid Arriaga [address] [address] [place] [address] Physician Cardiology 05/04/21 Santos Calvin [address] [address] Physician Urology 09/13/21 Flaquito Mariee 176 [facility] [address] [facility] [place] [address] Salesperson Driver Pulmonary Disease 10/25/21 Christopher Bonilla MD [address] [place] [address] Home Care Physician Family Practice 02/03/22 Mera Langford MD [address] [place], [place] [phone] Referring 02/04/22 Erik Hassan, RN [address] [place] [address] Elocution Teacher Post Acute Care 02/08/22 Order Management Specialist Relationship Specialty Start Date End Date Christopher Bonilla MD [address] [place] [address] PCP - General Family Practice 10/10/17 Elisabeth Shannon RN [address] [place] [address] Manager Operations Research 02/11/21 Junaid Arriaga 1761 [facility] 3A [place] [address] Physician Cardiology 05/04/21 Santos Calvin [address] [place] [address] [address] [place] [address] Physician Urology 09/13/21 Flaquito Mariee [address] [place] [address] Salesperson Driver Pulmonary Disease 10/25/21 Christopher Bonilla MD [address] [place], [place] [id number] Home Care Physician Family Practice 02/03/22 Mera Langford MD [address] [place], [place] [phone] Referring 02/04/22 Erik Hassan, [place] [address] [place] [address] Elocution Teacher Post Acute Care 02/08/22 Order Management Specialist Relationship Specialty Start Date End Date Christopher Bonilla MD [address] [place] [address] PCP - General Family Practice 10/10/17 Elisabeth Shannon RN [address] [place], [place] [id number] Manager Operations Research 02/11/21 Junaid Arriaga 1761 [facility] 3A [place] [address] Physician Cardiology 05/04/21 Santos Calvin [address] [place] [address] [address] [place] [address] Physician Urology 09/13/21 Flaquito Mariee 1761 [facility] [place] [address] Salesperson Driver Pulmonary Disease 10/25/21 Christopher Bonilla MD [address] [place] [address] Home Care Physician Family Practice 02/03/22 Mera Langford MD [address] [place], [place] [phone] Referring 02/04/22 Erik Hassan RN [address] [place], [place] [phone] Elocution Teacher Post Acute Care 02/08/22 Order Management Specialist Relationship Specialty Start Date End Date Christopher Bonilla MD [address] [place] [address] PCP - General Family Practice 10/10/17 Elisabeth Shannon RN [address] [place], [place] [id number] Manager Operations Research 02/11/21 Junaid Arriaga [address] [facility] [address] [place] [address] Physician Cardiology 05/04/21 Santos Calvin [address] [address] Physician Urology 09/13/21 Flaquito Mariee [address] [facility] [place] [address] Salesperson Driver Pulmonary Disease 10/25/21 Christopher Bonilla MD [address] [place] [address] Home Care Physician Family Practice 02/03/22 Mera Langford MD [address] [place], [place] [phone] Referring 02/04/22 Erik Hassan, [place] [address] [place] [address] Elocution Teacher Post Acute Care 02/08/22 Order Management Specialist Relationship Specialty Start Date End Date Christopher Bonilla MD [address] [place] [address] PCP - General Family Practice 10/10/17 Elisabeth Shannon RN [address] [place], [place] 0208131 Manager Operations Research 02/11/21 Junaid Arriaga [address] [facility] [address] [place] [address] Physician Cardiology 05/04/21 Santos Calvin [address] [address] Physician Urology 09/13/21 Flaquito Mariee [address] [place] [place] [address] Salesperson Driver Pulmonary Disease 10/25/21 Christopher Bonilla MD [address] [place] [address] Home Care Physician Family Practice 02/03/22 Mera Langford MD [address] [place], [place] [phone] Referring 02/04/22 Erik Hassan, [place] [address] [place] [address] Elocution Teacher Post Acute Care 02/08/22 Order Management Specialist Relationship Specialty Start Date End Date Christopher Bonilla MD [address] [place], [place] [id number] PCP - General Family Practice 10/10/17 Elisabeth Shannon RN [address] [place] [address] Manager Operations Research 02/11/21 Junaid Arriaga 1761 [facility] AMAILA [facility] [address] [place] [address] Physician Cardiology 05/04/21 Santos Calvin [address] [place] [address] Physician Urology 09/13/21 Flaquito Mariee [address] [place] [address] Salesperson Driver Pulmonary Disease 10/25/21 Christopher Bonilla MD [address] [place], [place] 392311 Home Care Provider Family Practice 02/03/22 Mera Langford MD [address] [place], [place] [phone] Referring 02/04/22 Erik Hassan, [place] [address] [place], [place] [phone] Elocution Teacher Post Acute Care 02/08/22 Order Management Specialist Relationship Specialty Start Date End Date Christopher Bonilla MD [address] [place] [address] PCP - General Family Practice 10/10/17 Elisabeth Shannon RN [address] [place] [address] Manager Operations Research 02/11/21 Junaid Arriaga [address] [facility] [address] [place] [address] Physician Cardiology 05/04/21 Santos Calvin [address] [place] [address] [address] [place] [address] Physician Urology 09/13/21 Flaquito Mariee [address] [address] [place] [address] Salesperson Driver Pulmonary Disease 10/25/21 Christopher Bonilla MD [address] [place], [place] 290011 Home Care Provider Family Practice 02/03/22 Mera Langford MD [address] [place], [place] [phone] Referring 02/04/22 Erik Hassan RN [address] [place] [address] Elocution Teacher Post Acute Care 02/08/22 Order Management Specialist Relationship Specialty Start Date End Date Christopher Bonilla MD [address] [place] [address] PCP - General Family Practice 10/10/17 Elisabeth Shannon RN [address] [place] [address] Manager Operations Research 02/11/21 Junaid Arriaga [address] [address] [address] Physician Cardiology 05/04/21 Santos Calvin [address] [address] Physician Urology 09/13/21 Flaquito Mariee 1761 [facility] [place] [address] Salesperson Driver Pulmonary Disease 10/25/21 Christopher Bonilla MD [address] [place], [place] 321851 Home Care Provider Family Practice 02/03/22 Mera Langford MD [address] [place], [place] [phone] Referring 02/04/22 Erik Hassan, [place] [address] [place] [address] Elocution Teacher Post Acute Care 02/08/22 Order Management Specialist Relationship Specialty Start Date End Date Christopher Bonilla MD [address] [place], [place] 783301 PCP - General Family Medicine 10/10/17 Elisabeth Shannon RN [address] [place] [address] Manager Operations Research 02/11/21 Junaid Arriaga [address] [address] [place] [address] Physician Cardiology 05/04/21 Santos Calvin [address] [address] Physician Urology 09/13/21 Flaquito Mariee [address] [place] [address] Salesperson Driver Pulmonary Disease 10/25/21 Christopher Bonilla MD [address] [place] [address] Home Care Provider Family Medicine 02/03/22 Mera Langford MD [address] [place], [place] [phone] Referring 02/04/22 Erik Hassan, [place] [address] [place] [address] Elocution Teacher Post Acute Care 02/08/22 Order Management Specialist Relationship Specialty Start Date End Date Christopher Bonilla MD [address] [place], [place] [id number] PCP - General Family Medicine 10/10/17 Elisabeth Shannon, [place] [address] [place] [address] Manager Operations Research 02/11/21 Junaid Arriaga [address] [place] [address] [facility] [address] [place] [address] Physician Cardiology 05/04/21 Santos Calvin [address] [place] [address] [address] [place] [address] Physician Urology 09/13/21 Flaquito Mariee [address] [place] [address] Salesperson Driver Pulmonary Disease 10/25/21 Christopher Bonilla MD [address] [place] [address] Home Care Provider Family Medicine 02/03/22 Mera Langford MD [address] [place], [place] [phone] Referring 02/04/22 Erik Hassan RN [address] [place] [address] Elocution Teacher Post Acute Care 02/08/22 Order Management Specialist Relationship Specialty Start Date End Date Christopher Bonilla MD [address] [place], [place] 450971 PCP - General Family Medicine 10/10/17 Elisabeth Shannon RN [address] [place] [address] Manager Operations Research 02/11/21 Junaid Arriaga [address] [facility] [address] [address] Physician Cardiology 05/04/21 Santos Calvin [address] [place] [address] [address] [place] [address] Physician Urology 09/13/21 Flaquito Mariee 1761 [facility] [place] [address] Salesperson Driver Pulmonary Disease 10/25/21 Christopher Bonilla MD [address] [place] [address] Home Care Provider Family Medicine 02/03/22 Mera Langford MD [address] [place], [place] [phone] Referring 02/04/22 Erik Hassan RN [address] [place] [address] Elocution Teacher Post Acute Care 02/08/22 Order Management Specialist Relationship Specialty Start Date End Date Christopher Bonilla MD [address] [place] [address] PCP - General Family Medicine 10/10/17 Elisabeth Shannon, [place] [address] [place] [address] Manager Operations Research 02/11/21 Junaid Arriaga [address] [address] [place] [address] Physician Cardiology 05/04/21 Santos Calvin [address] [phone] Physician Urology 09/13/21 Flaquito Mariee 1761 [facility] [place] [address] Salesperson Driver Pulmonary Disease 10/25/21 Christopher Bonilla MD [address] [place] [address] Home Care Provider Family Medicine 02/03/22 Mera Langford MD [address] [place], [place] [phone] Referring 02/04/22 Erik Hassan, [place] [address] [place] [address] Elocution Teacher Post Acute Care 02/08/22 Order Management Specialist Relationship Specialty Start Date End Date Christopher Bonilla MD [address] [place] [address] PCP - General Family Medicine 10/10/17 Elisabeth Shannon, RN [address] [place] [address] Manager Operations Research 02/11/21 Junaid Arriaga [address] [address] [address] Physician Cardiology 05/04/21 Santos Calvin [address] [address] Physician Urology 09/13/21 Flaquito Mariee [address] [place] [address] Salesperson Driver Pulmonary Disease 10/25/21 Christopher Bonilla MD [address] [place] [address] Home Care Provider Family Medicine 02/03/22 Mera Langford MD [address] [place], [place] [phone] Referring 02/04/22 Erik Hassan, [place] [address] [place], [place] 1726031 Elocution Teacher Post Acute Care 02/08/22 Order Management Specialist Relationship Specialty Start Date End Date Christopher Bonilla MD [address] [place] [address] PCP - General Family Medicine 10/10/17 Elisabeth Shannon RN [address] [place] [address] Manager Operations Research 02/11/21 Junaid Arriaga 1761 [facility] [address] [place] [address] Physician Cardiology 05/04/21 Santos Calvin [address] [place] [address] Physician Urology 09/13/21 Flaquito Mariee 17[address] [facility] [place] [address] Salesperson Driver Pulmonary Disease 10/25/21 Christopher Bonilla MD [address] [place] [address] Home Care Provider Family Medicine 02/03/22 Mera Langford MD 1 [place] [address] Referring 02/04/22 Erik Hassan, [place] [address] [place], [place] 7237131 Elocution Teacher Post Acute Care 02/08/22 Order Management Specialist Relationship Specialty Start Date End Date Christopher Bonilla MD [address] [place] [address] PCP - General Family Medicine 10/10/17 Elisabeth Shannon RN [address] [place] [address] Manager Operations Research 02/11/21 Junaid Arriaga 1761 [facility] [address] [place] [address] Physician Cardiology 05/04/21 Santos Calvin [address] [place] [address] Physician Urology 09/13/21 Flaquito Mariee [address] [place] [address] Salesperson Driver Pulmonary Disease 10/25/21 Christopher Bonilla MD [address] [place] [address] Home Care Provider Family Medicine 02/03/22 Mera Langford MD 1 [place] [address] Referring 02/04/22 Erik Hassan, [place] [address] [place] [address] Elocution Teacher Post Acute Care 02/08/22 Order Management Specialist Relationship Specialty Start Date End Date Christopher Bonilla MD [address] [place] [address] PCP - General Family Medicine 10/10/17 Elisabeth Shannon, RN [address] [place] [address] Manager Operations Research 02/11/21 Junaid Arriaga [address] [address] Physician Cardiology 05/04/21 Santos Calvin [address] [address] Physician Urology 09/13/21 Flaquito Mariee [address] [place], [place] 275991 Salesperson Driver Pulmonary Disease 10/25/21 Christopher Bonilla MD [address] [place] [address] Home Care Provider Family Medicine 02/03/22 Mera Langford MD [address] [place], [place] [phone] Referring 02/04/22 Erik Hassan, [place] [address] [place] [address] Elocution Teacher Post Acute Care 02/08/22 Order Management Specialist Relationship Specialty Start Date End Date Christopher Bonilla MD [address] [place] [address] PCP - General Family Medicine 10/10/17 Elisabeth Shannon, RN [address] [place], [place] 0683731 Manager Operations Research 02/11/21 Junaid Arriaga [address] [phone] Physician Cardiology 05/04/21 Santos Calvin [address] [phone] Physician Urology 09/13/21 Flaquito Mariee [address] [place] [address] Salesperson Driver Pulmonary Disease 10/25/21 Christopher Bonilla MD [address] [place] [address] Home Care Provider Family Medicine 02/03/22 Mera Langford MD [address] [place], [place] [phone] Referring 02/04/22 Erik Hassan, [place] [address] [place] [address] Elocution Teacher Post Acute Care 02/08/22 Order Management Specialist Relationship Specialty Start Date End Date Christopher Bonilla MD [address] [place] [address] PCP - General Family Medicine 10/10/17 Elisabeth Shannon RN [address] [place] [address] Manager Operations Research 02/11/21 Junaid Arriaga [address] [address] [address] Physician Cardiology 05/04/21 Santos Calvin [address] [place] [address] [address] [place] [phone] Physician Urology 09/13/21 Flaquito Mariee [address] [place] [address] Salesperson Driver Pulmonary Disease 10/25/21 Christopher Bonilla MD [address] [place] [address] Home Care Provider Family Medicine 02/03/22 Mera Langford MD [address] [place], [place] [phone] Referring 02/04/22 Order Management Specialist Relationship Specialty Start Date End Date Christopher Bonilla MD [address] [place], [place] 832111 PCP - General Family Medicine 10/10/17 Elisabeth Shannon RN [address] [place], [place] 8565431 Manager Operations Research 02/11/21 Junaid Arriaga [address] [facility] [place] [address] Physician Cardiology 05/04/21 Santos Calvin [address] [place] [address] [address] [place] [address] Physician Urology 09/13/21 Flaquito Mariee [address] [place] [address] Salesperson Driver Pulmonary Disease 10/25/21 Christopher Bonilla MD [address] [place] [address] Home Care Provider Family Medicine 02/03/22 Mera Langford MD [address] [place] [address] Referring 02/04/22 Order Management Specialist Relationship Specialty Start Date End Date Christopher Bonilla MD [address] [place], [place] 679161 PCP - General Family Medicine 10/10/17 Elisabeth Shannon RN [address] [place] [address] Manager Operations Research 02/11/21 Junaid Arriaga [address] [facility] [place] [address] Physician Cardiology 05/04/21 Santos Calvin [address] [address] Physician Urology 09/13/21 Flaquito Mariee [address] [place] [address] Salesperson Driver Pulmonary Disease 10/25/21 Christopher Bonilla MD [address] [place] [address] Home Care Provider Family Medicine 02/03/22 Mera Langford MD [address] [place], [place] [phone] Referring 02/04/22 Order Management Specialist Relationship Specialty Start Date End Date Christopher Bonilla MD [address] [place] [address] PCP - General Family Medicine 10/10/17 Elisabeth Shannon, RN [address] [place] [address] Manager Operations Research 02/11/21 Junaid Arriaga [address] [facility] [address] [place] [address] Physician Cardiology 05/04/21 Santos Calvinuel [address] [address] Physician Urology 09/13/[address]quito Mariee [address] [place] [address] Salesperson Driver Pulmonary Disease 10/25/21 Christopher Bonilla MD [address] [place] [address] Home Care Provider Family Medicine 02/03/22 Mera Langford MD [address] [place], [place] [phone] Referring 02/04/22 Order Management Specialist Relationship Specialty Start Date End Date Christopher Bonilla MD [address] [place], [place] 695771 PCP - General Family Medicine 10/10/17 Elisabeth Shannon, RN [address] [place], [place] 3108431 Manager Operations Research 02/11/21 Junaid Arriaga [address] [place] [address] Physician Cardiology 05/04/21 Santos Calvin [address] [place] [address] [address] [place] [address] Physician Urology 09/13/21 Flaquito Mariee 1761 [facility] [place] [address] Salesperson Driver Pulmonary Disease 10/25/21 Christopher Bonilla MD [address] [place] [address] Home Care Provider Family Medicine 02/03/22 Mera Langford MD [address] [place], [place] [phone] Referring 02/04/22 Order Management Specialist Relationship Specialty Start Date End Date Christopher Bonilla MD [address] [place], [place] [id number] PCP - General Family Medicine 10/10/17 Elisabeth Shannon RN [address] [place] [address] Manager Operations Research 02/11/21 Junaid Arriaga [address] [facility] [facility] [address] [place] [address] Physician Cardiology 05/04/21 Santos Cavlin [address] [place] [address] Physician Urology 09/13/21 [address]quito Mariee [address] [place] [address] Salesperson Driver Pulmonary Disease 10/25/21 Christopher Bonilla MD 1740 [facility] [place] [address] Home Care Provider Family Medicine 02/03/22 Mera Langford MD [address] [place], [place] [phone] Referring 02/04/22 Order Management Specialist Relationship Specialty Start Date End Date Christopher Bonilla MD 1740 [facility] [place] [address] PCP - General Family Medicine 10/10/17 Elisabeth Shannon, RN [address] [place] [address] Manager Operations Research 02/11/21 Junaid Arriaga [address] [address] [place] [address] Physician Cardiology 05/04/21 Santos Calvin [address] [place] [address] Physician Urology 09/13/21 [address]quito Mariee [address] [place] [address] Salesperson Driver Pulmonary Disease 10/25/21 Christopher Bonilla MD 1740 [facility] [place] [address] Home Care Provider Family Medicine 02/03/22 Mera Langford MD [address] [place], [place] [phone] Referring 02/04/22 Order Management Specialist Relationship Specialty Start Date End Date Christopher Bonilla MD [address] [place] [address] PCP - General Family Medicine 10/10/17 Elisabeth Shannon RN [address] [place] [address] Manager Operations Research 02/11/21 Junaid Arriaga 1761 [facility] [address] [address] Physician Cardiology 05/04/21 Santos Calvin MD [address] [place] [address] 210 [place] [address] Physician Urology 09/13/21 Flaquito Mariee 1761 [facility] [place] [place] [address] Salesperson Driver Pulmonary Disease 10/25/21 Christopher Bonilla MD [address] [place] [address] Home Care Provider Family Medicine 02/03/22 Mera Langford MD [address] [place], [place] [phone] Referring 02/04/22 Order Management Specialist Relationship Specialty Start Date End Date Christopher Bonilla MD [address] [place] [address] PCP - General Family Medicine 10/10/17 Elisabeth Shannon RN [address] [place] [address] Manager Operations Research 02/11/21 Junaid Arriaga [address] [place] [address] Physician Cardiology 05/04/21 Santos Calvin MD [address] [place] [address] Physician Urology 09/13/[address]e [address] [place] [address] Salesperson Driver Pulmonary Disease 10/25/21 Christopher Bonilla MD 1740 [facility] [place] [address] Home Care Provider Family Medicine 02/03/22 Mera Langford MD [address] [place], [place] [phone] Referring 02/04/22 Order Management Specialist Relationship Specialty Start Date End Date Christopher Bonilla MD 1740 [facility], [place] 8[address]41 PCP - General Family Medicine 10/10/17 Elisabeth Shannon, RN [address] [place] [address] Manager Operations Research 02/11/21 Junaid Arriaga [address] [facility] [address] [place] [address] Physician Cardiology 05/04/21 Santos Calvin MD [address] [place] [address] Physician Urology 09/13/21 [address]quito Marie[address] [place] [address] Salesperson Driver Pulmonary Disease 10/25/21 Christopher Bonilla MD [address] [place] [address] Home Care Provider Family Medicine 02/03/22 Mera Langford MD [address] [place], [place] [phone] Referring 02/04/22 Order Management Specialist Relationship Specialty Start Date End Date Christopher Bonilla MD [address] [place], [place] 644341 PCP - General Family Medicine 10/10/17 Elisabeth Shannon RN [address] [place], [place] 1471431 Manager Operations Research 02/11/21 Junaid Arriaga 1761 [facility] [address] [address] Physician Cardiology 05/04/21 Santos Calvin MD [address] [address] Physician Urology 09/13/21 Flaquito Mariee 1761 [facility] [place] [place] [address] Salesperson Driver Pulmonary Disease 10/25/21 Christopher Bonilla MD [address] [place] [address] Home Care Provider Family Medicine 02/03/22 Mera Langford MD [address] [place], [place] [phone] Referring 02/04/22 Order Management Specialist Relationship Specialty Start Date End Date Christopher Bonilla MD [address] [place], [place] 672491 PCP - General Family Medicine 10/10/17 Elisabeth Shannon RN [address] [place] [address] Manager Operations Research 02/11/21 Junaid Arriaga [address] [facility] [address] [place] [address] Physician Cardiology 05/04/21 Santos Calvin MD [address] [place] [address] Physician Urology 09/13/21 Flaquito Mariee [address] [place] [address] Salesperson Driver Pulmonary Disease 10/25/21 Christopher Bonilla MD 1740 [facility] [place] [address] Home Care Provider Family Medicine 02/03/22 Mera Langford MD 1 [place], [place] [phone] Referring 02/04/22 Order Management Specialist Relationship Specialty Start Date End Date Christopher Bonilla MD 1740 [facility], [place] [address] PCP - General Family Medicine 10/10/17 Elisabeth Shannon RN [address] [place] [address] Manager Operations Research 02/11/21 Jnuaid Arriaga [address] [place] [address], [place] [phone] Physician Cardiology 05/04/21 Santos Calvin MD [address], [place] [address] Physician Urology 09/13/21 Flaquito Mariee [address] [place] [address] Salesperson Driver Pulmonary Disease 10/25/21 Christopher Bonilla MD [address] [place], [place] 962051 Home Care Provider Family Medicine 02/03/22 Mera Langford MD 1 [place], [place] [phone] Referring 02/04/22 Order Management Specialist Relationship Specialty Start Date End Date Christopher Bonilla MD [address] [place] [address] PCP - General Family Medicine 10/10/17 Elisabeth Shannon RN [address] [place] [id number] Manager Operations Research 02/11/21 Junaid Arriaga 1761 [facility] [address] [place] [address] Physician Cardiology 05/04/21 Santos Calvin MD 546 [facility] [address] [place] [address] Physician Urology 09/13/21 Flaquito Mariee 1761 [facility] [place] [place] [address] Salesperson Driver Pulmonary Disease 10/25/21 Christopher Bonilla MD [address] [place] [address] Home Care Provider Family Medicine 02/03/22 Mera Langford MD 1 [place], [place] [phone] Referring 02/04/22 Order Management Specialist Relationship Specialty Start Date End Date Christopher Bonilla MD [address] [place] [address] PCP - General Family Medicine 10/10/17 Elisabeth Shannon RN [address] [place] [address] Manager Operations Research 02/11/21 Junaid Arriaga [address] [place] [address] Physician Cardiology 05/04/21 Santos Calvin MD [address] [place] [address] Physician Urology 09/13/21 Flaquito Mariee [address] [place] [address] Salesperson Driver Pulmonary Disease 10/25/21 Christopher Bonilla MD 1740 [facility] [place] [address] Home Care Provider Family Medicine 02/03/22 Mera Langford MD 1 [place], [place] [phone] Referring 02/04/22 Order Management Specialist Relationship Specialty Start Date End Date Christopher Bonilla MD 1740 [facility], [place] [address]01 PCP - General Family Medicine 10/10/17 Elisabeth Shannon RN [address] [place] [address] Manager Operations Research 02/11/21 Junaid Arriaga [address] [place] [address] Physician Cardiology 05/04/21 Santos Calvin MD [address] [place] [address] Physician Urology 09/13/21 Flaquito Mariee [address] [place] [address] Salesperson Driver Pulmonary Disease 10/25/21 Christopher Bonilla MD [address] [place], [place] 762521 Home Care Provider Family Medicine 02/03/22 Mera Langford MD 1 [place], [place] [phone] Referring 02/04/22 Order Management Specialist Relationship Specialty Start Date End Date Christopher Bonilla MD [address] [place], [place] 403101 PCP - General Family Medicine 10/10/17 Elisabeth Shannon RN [address] [place] [address] Manager Operations Research 02/11/2107/07 Junaid Arriaga [address] [facility] [address] [place] [address] Physician Cardiology 05/04/21 Santos Calvin MD [address] [address] Physician Urology 09/13/21 Flaquito Mariee 1761 [facility] [place] [place] [address] Salesperson Driver Pulmonary Disease 10/25/21 Christopher Bonilla MD [address] [place], [place] 63071691 Home Care Provider Family Medicine 02/03/22 Mera Langford MD 1 [place], [place] [phone] Referring 02/04/22 Erik Hassan, [place] [address] [place], [place] [phone] Elocution Teacher Post Acute Care 02/08/22 03/08/22 Concha Rocha RN Manager Operations Research 07/08/22 Team Status: Active Member Role Status Dates Dr. Christopher Bonilla MD Family Provider Active Dr. Christopher Bonilla MD Primary Care Provider Active Team Status: Inactive Member Role Status Dates Dr. Christopher Bonilla MD Primary Care Provider, Referring Provider Active Amy Cummings OFFBEARER, OFFBEARER-C Attending Provider Active Team Status: Active Member Role Status Dates Dr. Flaquito Mariee MD Referring Provider, Other Provid er Active Dr. Christopher Bonilla MD Primary Care Provider Active Dr. Dwayne Garcia DO Attending Provider Active Team Status: Inactive Member Role Status Dates Dr. Christopher Bonilla MD Primary Care Provider, Referring Provider Active Yanely Camejo PA, PA Active Hima Tijerina OFFBEARER, OFFBEARER-C Attending Provider Active Team Status: Inactive Member [...] Dr. Abimael Evans MD Attending Provider Active Order Management Specialist Relationship Specialty Start Date End Date Christopher Bonilla MD [address] [place] [address] PCP - General Family Medicine 10/10/17 Junaid Arriaga 1761 [facility] [address] [place] [address] Physician Cardiology 05/04/21 Santos Calvin MD [address] 097[address] Physician Urology 09/13/21 Flaquito Mariee 176 [facility] [place] [address] Salesperson Driver Pulmonary Disease 10/25/21 Christopher Bonilla MD [address] [place] [address] Home Care Provider Family Medicine 02/03/22 Mera Langford MD 1 [place] [address] Referring 02/04/22 Concha Rocha, public events facilities rental managerManager Operations Research 07/08/22 Order Management Specialist Relationship Specialty Start Date End Date Christopher Bonilla MD [address] [place] [address] PCP - General Family Medicine 10/10/17 Junaid Arriaga 1761 [facility] [address] [place] [address] Physician Cardiology 05/04/21 Santos Calvin MD [address] [address] Physician Urology 09/13/21 Flaquito Mariee [address] [place] [address] Salesperson Driver Pulmonary Disease 10/25/21 Christopher Bonilla MD [address] [place] [address] Home Care Provider Family Medicine 02/03/22 Mera Langford MD 1 [place] [address] Referring 02/04/22 Concha Rocha, public events facilities rental managerManager Operations Research 07/08/22 Order Management Specialist Relationship Specialty Start Date End Date Christopher Bonilla MD [address] [place] [address] PCP - General Family Medicine 10/10/17 Junaid Arriaga [address] [place] [address] Physician Cardiology 05/04/21 Santos Calvin MD [address] [place] [address] [place] [address] Physician Urology 09/13/21 Flaquito Mariee [address] [place] [address] Salesperson Driver Pulmonary Disease 10/25/21 Christopher Bonilla MD 1740 [facility] [place] [address] Home Care Provider Family Medicine 02/03/22 Mera Langford MD 1 [place], [place] [phone] Referring 02/04/22 Concha Rocha, public events facilities rental managerManager Operations Research 07/08/22 Order Management Specialist Relationship Specialty Start Date End Date Christopher Bonilla MD 1740 [facility] [place] [address] PCP - General Family Medicine 10/10/17 Junaid Arriaga [address] [place] [address] Physician Cardiology 05/04/21 Santos Calvin MD [address] [place] [address] [place] [address] Physician Urology 09/13/21 Flaquito Mariee [address] [place] [address] Salesperson Driver Pulmonary Disease 10/25/21 Christopher Bonilla MD 1740 [facility] [place] [address] Home Care Provider Family Medicine 02/03/22 Mera Langford MD 1 [place], [place] [phone] Referring 02/04/22 Concha Rocha, public events facilities rental managerManager Operations Research 07/08/22 Order Management Specialist Relationship Specialty Start Date End Date Christopher Bonilla MD 1740 [facility], [place] 76[address]31 PCP - General Family Medicine 10/10/17 Junaid Arriaga [address] [place] [address] Physician Cardiology 05/04/21 Santos Calvin MD [address] [place] [address] Physician Urology 09/13/21 Flaquito Mariee [address] [place] [address] Salesperson Driver Pulmonary Disease 10/25/21 Christopher Bonilla MD 1740 [facility] [place] [address] Home Care Provider Family Medicine 02/03/22 Mera Langford MD 1 [place], [place] [phone] Referring 02/04/22 Concha Rocha, public events facilities rental managerManager Operations Research 07/08/22 Order Management Specialist Relationship Specialty Start Date End Date Christopher Bonilla MD 1740 [facility] [place] [address] PCP - General Family Medicine 10/10/17 Junaid Arriaga [address] [place] [address] Physician Cardiology 05/04/21 Santos Calvin MD [address] [place] [address] Physician Urology 09/13/21 Flaquito Mariee [address] [place] [address] Salesperson Driver Pulmonary Disease 10/25/21 Christopher Bonilla MD 1740 [facility] [place] [address] Home Care Provider Family Medicine 02/03/22 Mera Langford MD 1 [place], [place] [phone] Referring 02/04/22 Concha Rocha, public events facilities rental managerManager Operations Research 07/08/22 Order Management Specialist Relationship Specialty Start Date End Date Christopher Bonilla MD [address] [place] [address] PCP - General Family Medicine 10/10/17 Junaid Arriaga [address] [place] [address] Physician Cardiology 05/04/21 Santos Calvin MD [address] [address] Physician Urology 09/13/21 Flaquito Mariee [address] [place] [address] Salesperson Driver Pulmonary Disease 10/25/21 Christopher Bonilla MD [address] [place] [address] Home Care Provider Family Medicine 02/03/22 Mera Langford MD 1 [place], [place] [phone] Referring 02/04/22 Concha Rocha, public events facilities rental managerManager Operations Research 07/08/22 Order Management Specialist Relationship Specialty Start Date End Date Christopher Bonilla MD 1740 [facility] [place] [address] PCP - General Family Medicine 10/10/17 Junaid Arriaga [address] [place] [address] Physician Cardiology 05/04/21 Santos Calvin MD [address] [place] [address] [place] [address] Physician Urology 09/13/21 Flaquito Mariee [address] [place] [address] Salesperson Driver Pulmonary Disease 10/25/21 Christopher Bonilla MD 1740 [facility] [place] [address] Home Care Provider Family Medicine 02/03/22 Mera Langford MD 1 [place], [place] [phone] Referring 02/04/22 Concha Rocha, public events facilities rental managerManager Operations Research 07/08/22 Order Management Specialist Relationship Specialty Start Date End Date Christopher Bonilla MD 1740 [facility] [place] [address] PCP - General Family Medicine 10/10/17 Junaid Arriaga [address] [place] [address] Physician Cardiology 05/04/21 Santos Calvin MD [address] [place] [address] [place] [address] Physician Urology 09/13/21 Flaquito Mariee [address] [place] [address] Salesperson Driver Pulmonary Disease 10/25/21 Christopher Bonilla MD [address] [place] [address] Home Care Provider Family Medicine 02/03/22 Mera Langford MD 1 [place] [address] Referring 02/04/22 Concha Rocha, public events facilities rental managerManager Operations Research 07/08/22 Order Management Specialist Relationship Specialty Start Date End Date Christopher Bonilla MD [address] [place] [address] PCP - General Family Medicine 10/10/17 Junaid Arriaga [address] [facility] [address] [place] [address] Physician Cardiology 05/04/21 Santos Calvin MD [address] [address] Physician Urology 09/13/21 Flaquito Mariee 1761 [facility] [place] [place] [address] Salesperson Driver Pulmonary Disease 10/25/21 Christopher Bonilla MD [address] [place] [address] Home Care Provider Family Medicine 02/03/22 Mera Langford MD 1 [place] [address] Referring 02/04/22 Concha Rocha, public events facilities rental managerManager Operations Research 07/08/22 Order Management Specialist Relationship Specialty Start Date End Date Christopher Bonilla MD [address] [place] [address] PCP - General Family Medicine 10/10/17 Junaid Arriaga [address] [place] [address] Physician Cardiology 05/04/21 Santos Calvin MD [address] [place] [address] Physician Urology 09/13/21 Flaquito Mariee [address] [place] [address] Salesperson Driver Pulmonary Disease 10/25/21 Christopher Bonilla MD 1740 [facility] [place] [address] Home Care Provider Family Medicine 02/03/22 Mera Langford MD 1 [place], [place] [phone] Referring 02/04/22 Concha Rocha, public events facilities rental managerManager Operations Research 07/08/22 Order Management Specialist Relationship Specialty Start Date End Date Christopher Bonilla MD 1740 [facility] [place] [address] PCP - General Family Medicine 10/10/17 Junaid Arriaga [address] [place] [address] Physician Cardiology 05/04/21 Santos Calvin MD [address] [place] [address] Physician Urology 09/13/21 Flaquito Mariee [address] [place] [address] Salesperson Driver Pulmonary Disease 10/25/21 Christopher Bonilla MD 1740 [facility] [place] [address] Home Care Provider Family Medicine 02/03/22 Mera Langford MD 1 [place], [place] [phone] Referring 02/04/22 Concha Rocha, public events facilities rental managerManager Operations Research 07/08/22 Order Management Specialist Relationship Specialty Start Date End Date Christopher Bonilla MD 1740 [facility] [address] PCP - General Family Medicine 10/10/17 Junaid Arriaga [address] [place] [address] Physician Cardiology 05/04/21 Santos Calvin MD [address] [place] [address] Physician Urology 09/13/21 Flaquito Mariee [address] [place] [address] Salesperson Driver Pulmonary Disease 10/25/21 Christopher Bonilla MD 1740 [facility], [place] [address] Home Care Provider Family Medicine 02/03/22 Mera Langford MD 1 [place], [place] [phone] Referring 02/04/22 Concha Rocha, public events facilities rental managerManager Operations Research 07/08/22 Order Management Specialist Relationship Specialty Start Date End Date Christopher Bonilla MD 1740 [facility] [place] [address] PCP - General Family Medicine 10/10/17 Junaid Arriaga [address] [place] [address] Physician Cardiology 05/04/21 Santos Calvin MD [address] [place] [address] Physician Urology 09/13/21 Flaquito Mariee [address] [place] [address] Salesperson Driver Pulmonary Disease 10/25/21 Christopher Bonilla MD 1740 [facility] [place] [address] Home Care Provider Family Medicine 02/03/22 Mera Langford MD 1 [place], [place] [phone] Referring 02/04/22 Concha Rocha, public events facilities rental managerManager Operations Research 07/08/22 Order Management Specialist Relationship Specialty Start Date End Date Christopher Bonilla MD 1740 [facility] [place] [address] PCP - General Family Medicine 10/10/17 Junaid Arriaga [address] [place] [address] Physician Cardiology 05/04/21 Santos Calvin MD [address] [address] Physician Urology 09/13/21 Flaquito Mariee [address] [place] [address] Salesperson Driver Pulmonary Disease 10/25/21 Christopher Bonilla MD 1740 [facility] [place] [address] Home Care Provider Family Medicine 02/03/22 Mera Langford MD 1 [place], [place] [phone] Referring 02/04/22 Concha Rocha, public events facilities rental managerManager Operations Research 07/08/22 Team Status: Inactive Member Role Status Dates Dr. Christopher Bonilla MD Primary Care Provider, Referring Provider Active Dr. Flaquito Mariee MD Attending Provider Active Team Status: Inactive Member Role Status Dates Dr. Christopher Bonilla MD Primary Care Provider Active Dr. Abimael Evans MD Attending Provider, Referring Provider Active Order Management Specialist Relationship Specialty Start Date End Date Christopher Bonilla MD [address] [place] [address] PCP - General Family Medicine 10/10/17 Junaid Arriaga 1761 [facility] [address] [place] [address] Physician Cardiology 05/04/21 Santos Calvin MD [address] [place] [address] Physician Urology 09/13/21 Flaquito Mariee [address] [place] [address] Salesperson Driver Pulmonary Disease 10/25/21 Christohper Bonilla MD [address] [place] [address] Home Care Provider Family Medicine 02/03/22 Mera Langford MD 1 [place] [address] Referring 02/04/22 Jolene Osuna, public events facilities rental managerManager Operations Research 12/20/22 Order Management Specialist Relationship Specialty Start Date End Date Christopher Bonilla MD [address] [place] [address] PCP - General Family Medicine 10/10/17 Junaid Arriaga [address] [place] [address] Physician Cardiology 05/04/21 Santos Calvin MD [address] [address] [place] [address] Physician Urology 09/13/21 Flaquito Mariee [address] [place] [address] Salesperson Driver Pulmonary Disease 10/25/21 Christopher Bonilla MD 1740 [facility] [place] [address] Home Care Provider Family Medicine 02/03/22 Mera Langford MD 1 [place] [address] Referring 02/04/22 Jolene Osuna, public events facilities rental managerManager Operations Research 12/20/22 Order Management Specialist Relationship Specialty Start Date End Date Christopher Bonilla MD 1740 [facility] [place] [address] PCP - General Family Medicine 10/10/17 Junaid Arriaga [address] [place] [address] Physician Cardiology 05/04/21 Santos Calvin MD [address] [address] [place] [address] Physician Urology 09/13/21 Flaquito [address]e [address] [place] [address] Salesperson Driver Pulmonary Disease 10/25/21 Christopher Bonilla MD 174 [place], [place] 904761 Home Care Provider Family Medicine 02/03/22 Mera Langford MD 1 [place], [place] [phone] Referring 02/04/22 Jolene Osuna, public events facilities rental managerManager Operations Research 12/20/22 Order Management Specialist Relationship Specialty Start Date End Date Christopher Bonilla MD 174 [place], [place] 181521 PCP - General Family Medicine 10/10/17 Junaid Arriaga 1761 [facility] [address] [place] [address] Physician Cardiology 05/04/21 Santos Calvin MD [address] [place] [address] Physician Urology 09/13/21 Flaquito Mariee [address] [place] [address] Salesperson Driver Pulmonary Disease 10/25/21 Christopher Bonilla MD 174 [place], [place] 03851691 Home Care Provider Family Medicine 02/03/22 Mera Langford MD 1 [place], [place] [phone] Referring 02/04/22 Jolene Osuna, public events facilities rental managerManager Operations Research 12/20/22 Order Management Specialist Relationship Specialty Start Date End Date Christopher Bonilla MD [address] [place], [place] 822751 PCP - General Family Medicine 10/10/17 Junaid Arriaga 176 [facility] [address] [place] [address] Physician Cardiology 05/04/21 Santos Calvin MD [address] [place] [address] Physician Urology 09/13/21 Flaquito Mariee MD 176 [place] [address] Salesperson Driver Pulmonary Disease 10/25/21 Christopher Bonilla MD 174 [place] [address] Home Care Provider Family Medicine 02/03/22 Mera Langford MD 1 [place] [address] Referring 02/04/22 Jolene Osuna, public events facilities rental managerManager Operations Research 12/20/22 Order Management Specialist Relationship Specialty Start Date End Date Christopher Bonilla MD 174 [place], [place] 553201 PCP - General Family Medicine 10/10/17 Junaid Arriaga [address] [address] Physician Cardiology 05/04/21 Santos Calvin MD [address] [address] Physician Urology 09/13/21 Flaquito Mariee MD [address] [place], [place] [address] Salesperson Driver Pulmonary Disease 10/25/21 Christopher Bonilla MD 174 [place], [place] 307431 Home Care Provider Family Medicine 02/03/22 Mera Langford MD 1 [place], [place] [phone] Referring 02/04/22 Jolene Osuna, public events facilities rental managerManager Operations Research 12/20/22 Order Management Specialist Relationship Specialty Start Date End Date Christopher Bonilla MD 174 [place], [place] 460641 PCP - General Family Medicine 10/10/17 Junaid Arriaga [address] [facility] [address] [address] [address] Physician Cardiology 05/04/21 Santos Calvin MD [address] [address] Physician Urology 09/13/21 Flaquito Mariee MD [address] [place] [address] Salesperson Driver Pulmonary Disease 10/25/21 Christopher Bonilla MD [address] [place] [address] Home Care Provider Family Medicine 02/03/22 Mera Langford MD 1 [place] [address] Referring 02/04/22 Jolene Osuna, public events facilities rental managerManager Operations Research 12/20/22 Order Management Specialist Relationship Specialty Start Date End Date Christopher Bonilla MD [address] [place], [place] 077481 PCP - General Family Medicine 10/10/17 Junaid Arriaga [address] [phone] Physician Cardiology 05/04/21 Santos Calvin MD [address] [place] [address] Physician Urology 09/13/21 Flaquito Mariee MD [address] [place] [address] Salesperson Driver Pulmonary Disease 10/25/21 Christopher Bonilla MD [address] [place] [address] Home Care Provider Family Medicine 02/03/22 Mera Langford MD 1 [place], [place] [phone] Referring 02/04/22 Jolene Osuna public events facilities rental managerManager Operations Research 12/20/22 Order Management Specialist Relationship Specialty Start Date End Date Christopher Bonilla MD [address] [place] [address] PCP - General Family Medicine 10/10/17 Junaid Arriaga [address] [facility] [address] [place] [address] Physician Cardiology 05/04/21 Santos Calvin MD [address] [address] Physician Urology 09/13/21 Flaquito Mariee MD 176 [facility] [place] [address] Salesperson Driver Pulmonary Disease 10/25/21 Christopher Bonilla MD 174 [place] [address] Home Care Provider Family Medicine 02/03/22 Mera Langford MD 1 [place] [address] Referring 02/04/22 Jolene Osuna, public events facilities rental managerManager Operations Research 12/20/22 Order Management Specialist Relationship Specialty Start Date End Date Christopher Bonilla MD [address] [place] [address] PCP - General Family Medicine 10/10/17 Junaid Arriaga [address] [address] Physician Cardiology 05/04/21 Santos Calvin MD [address] [address] Physician Urology 09/13/21 Flaquito Mariee MD [address] [place] [address] [place], [place] [address] Salesperson Driver Pulmonary Disease 10/25/21 Christopher Bonilla MD 1740 [facility] [place] [address] Home Care Provider Family Medicine 02/03/22 Mera Langford MD 1 [place] [address] Referring 02/04/22 Jolene Osuna, public events facilities rental managerManager Operations Research 12/20/22 Team Status: Active Member Role Status Dates Dr. Christopher Bonilla MD Primary Care Provider, Referring Provider Active Dr. Abimael Evans MD Attending Provider, Other Prov ider Active Order Management Specialist Relationship Specialty Start Date End Date Christopher Bonilla MD [address] [place], [place] 665801 PCP - General Family Medicine 10/10/17 Junaid Arriaga [address] [address] [address] Physician Cardiology 05/04/21 Santos Calvin MD [address] [place] [address], [place] [address] Physician Urology 09/13/21 Flaquito Mariee MD [address] [place] [address] Salesperson Driver Pulmonary Disease 10/25/21 Christopher Bonilla MD [address]40 [place], [place] 116711 Home Care Provider Family Medicine 02/03/22 Mera Langford MD 1 [place], [place] [phone] Referring 02/04/22 Jolene Osuna, public events facilities rental managerManager Operations Research 12/20/22 Order Management Specialist Relationship Specialty Start Date End Date Christopher Bonilla MD [address] [place], [place] [id number] PCP - General Family Medicine 10/10/17 Junaid Arriaga [address] [address] Physician Cardiology 05/04/21 Santos Calvin MD [address] [place] [address] Physician Urology 09/13/21 [place] [address] [place] [address] Salesperson Driver Pulmonary Disease 10/25/21 Christopher Bonilla MD [address] [place] [address] Home Care Provider Family Medicine 02/03/22 Mera Langford MD 1 [place], [place] [phone] Referring 02/04/22 Jolene Osuna public events facilities rental managerManager Operations Research 12/20/22 Order Management Specialist Relationship Specialty Start Date End Date Christopher Bonilla MD [address] [place] [address] PCP - General Family Medicine 10/10/17 Junaid Arriaga 176 [facility] [address]A [place] [phone] Physician Cardiology 05/04/21 Santos Calvin MD [address] [address] Physician Urology 09/13/21 Flaquito Mariee MD 176 [place] [address] Salesperson Driver Pulmonary Disease 10/25/21 Christopher Bonilla MD [address] [place] [address] Home Care Provider Family Medicine 02/03/22 Mera Langford MD 1 [place], [place] [phone] Referring 02/04/22 Concha Rocha, public events facilities rental managerManager Operations Research 07/08/22 3 Order Management Specialist Relationship Specialty Start Date End Date Christopher Bonilla MD [address] [place] [address] PCP - General Family Medicine 10/10/17 Junaid Arriaga [address] [phone] Physician Cardiology 05/04/21 Santos Calvin MD [address] [address] Physician Urology 09/13/21 Flaquito Mariee MD [address] [place], [place] 186351 Salesperson Driver Pulmonary Disease 10/25/21 Christopher Bonilla MD 174 [place], [place] 743661 Home Care Provider Family Medicine 02/03/22 Mera Langford MD 1 [place] [address] Referring 02/04/22 Concha Rocha, public events facilities rental managerManager Operations Research 07/08/22 3 Order Management Specialist Relationship Specialty Start Date End Date Christopher Bonilla MD 174 [place] [address] PCP - General Family Medicine 10/10/17 Junaid Arriaga [address] [phone] Physician Cardiology 05/04/21 Santos Calvin MD [address] [place] [phone] Physician Urology 09/13/21 Flaquito Mariee MD [address] [place] [place] [address] Salesperson Driver Pulmonary Disease 10/25/21 Christopher Bonilla MD 174 [place], [place] 86904691 Home Care Provider Family Medicine 02/03/22 Mera Langford MD 1 [place], [place] [phone] Referring 02/04/22 Concha Rocha, public events facilities rental managerManager Operations Research 07/08/22 3 Order Management Specialist Relationship Specialty Start Date End Date Christopher Bonilla MD [address] [place], [place] [id number] PCP - General Family Medicine 10/10/17 Elisabeth Shannon RN 6000 [place] [address] Manager Operations Research 02/11/2107/07 Junaid Arriaga 1761 [facility] [address]A [place] [phone] Physician Cardiology 05/04/21 Santos Calvin MD [address] [phone] Physician Urology 09/13/21 Flaquito Mariee MD [address] [place] [address] Salesperson Driver Pulmonary Disease 10/25/21 Christopher Bonilla MD [address] [place], [place] 593691 Home Care Provider Family Medicine 02/03/22 Mera Langford MD 1 [place], [place] [phone] Referring 02/04/22 Order Management Specialist Relationship Specialty Start Date End Date Christopher Bonilla MD [address] [place] [address] PCP - General Family Medicine 10/10/17 Junaid Arriaga MD [address] [place] [address] Physician Cardiology 05/04/21 Santos Calvin MD [address] [address] Physician Urology 09/13/21 Flaquito Mariee MD [address] [place] [address] Salesperson Driver Pulmonary Disease 10/25/21 Christopher Bonilla MD [address] [place] [address] Home Care Provider Family Medicine 02/03/22 Mera Langford MD 1 [place], [place] [phone] Referring 02/04/22 Jolene Osuna, public events facilities rental managerManager Operations Research 12/20/22 Order Management Specialist Relationship Specialty Start Date End Date Christopher Bonilla MD [address] [place] [address] PCP - General Family Medicine 10/10/17 Junaid Arriaga MD [address] [place], [place] 852511 Physician Cardiology 05/04/21 Santos Calvin MD [address] [address] Physician Urology 09/13/21 Flaquito Mariee MD [address] [place] [address] Salesperson Driver Pulmonary Disease 10/25/21 Christopher Bonilla MD [address] [place] [address] Home Care Provider Family Medicine 02/03/22 Mera Langford MD 1 [place] [address] Referring 02/04/22 Jolene Osuna, public events facilities rental managerManager Operations Research 12/20/22 Order Management Specialist Relationship Specialty Start Date End Date Christopher Bonilla MD 174 [place] [address] PCP - General Family Medicine 10/10/17 Junaid Arriaga MD [address] [place] [address] Physician Cardiology 05/04/21 Santos Calvin MD [address] [place] [address] Physician Urology 09/13/21 Flaquito Mariee MD [address] [place] [address] Salesperson Driver Pulmonary Disease 10/25/21 Christopher Bonilla MD 1740 [facility] [place] [address] Home Care Provider Family Medicine 02/03/22 Mera Langford MD 1 [place] [address] Referring 02/04/22 Jolene Osuna, public events facilities rental managerManager Operations Research 12/20/22 Order Management Specialist Relationship Specialty Start Date End Date Christopher Bonilla MD [address] [place], [place] 346321 PCP - General Family Medicine 10/10/17 Junaid Arriaga MD 1761 [facility] 3A [place], [place] 923521 Physician Cardiology 05/04/21 Santos Calvin MD [address] [place] [address] Physician Urology 09/13/21 Flaquito Mariee MD [address]61 [place] [address] Salesperson Driver Pulmonary Disease 10/25/21 Christopher Bonilla MD [address] [place] [address] Home Care Provider Family Medicine 02/03/22 Mera Langford MD 1 [place] [address] Referring 02/04/22 Jolene Osuna, public events facilities rental managerManager Operations Research 12/20/22 Order Management Specialist Relationship Specialty Start Date End Date Christopher Bonilla MD [address] [place], [place] 828831 PCP - General Family Medicine 10/10/17 Junaid Arriaga MD [address] [place] [address] Physician Cardiology 05/04/21 Santos Calvin MD [address] [address] Physician Urology 09/13/21 Flaquito Mariee MD [address] [facility] [address] Salesperson Driver Pulmonary Disease 10/25/21 Christopher Bonilla MD 174 [place] [address] Home Care Provider Family Medicine 02/03/22 Mera Langford MD 1 [place] [address] Referring 02/04/22 Jolene Osuna, public events facilities rental managerManager Operations Research 12/20/22 Order Management Specialist Relationship Specialty Start Date End Date Christopher Bonilla MD [address] [place], [place] 067331 PCP - General Family Medicine 10/10/17 Junaid Arriaga MD [address] [place] [address] Physician Cardiology 05/04/21 Santos Calvin MD [address] [address] Physician Urology 09/13/21 Flaquito Mariee MD [address] [place] [address] Salesperson Driver Pulmonary Disease 10/25/21 Christopher Bonilla MD [address] [place], [place] 898871 Home Care Provider Family Medicine 02/03/22 Mera Langford MD 1 [place] [address] Referring 02/04/22 Jolene Osuna, public events facilities rental managerManager Operations Research 12/20/22 Order Management Specialist Relationship Specialty Start Date End Date Christopher Bonilla MD 174 [place], [place] 394541 PCP - General Family Medicine 10/10/17 Junaid Arriaga MD [address] [address] Physician Cardiology 05/04/21 Santos Calvin MD [address] [place] [address] Physician Urology 09/13/21 Flaquito Mariee MD [address] [place] [address] Salesperson Driver Pulmonary Disease 10/25/21 Christopher Bonilla MD [address] [place], [place] 146991 Home Care Provider Family Medicine 02/03/22 Mera Langford MD 1 [place], [place] [phone] Referring 02/04/22 Jolene Osuna, public events facilities rental managerManager Operations Research 12/20/22 Order Management Specialist Relationship Specialty Start Date End Date Christopher Bonilla MD [address] [place], [place] 919081 PCP - General Family Medicine 10/10/17 Junaid Arriaga MD 176 [facility] [address] [place] [address] Physician Cardiology 05/04/21 Santos Calvin MD [address] [place] [address] Physician Urology 09/13/21 Flaquito Mariee MD 176 [facility] [place] [place] [address] Salesperson Driver Pulmonary Disease 10/25/21 Christopher Bonilla MD 174 [place] [address] Home Care Provider Family Medicine 02/03/22 Mera Langford MD 1 [place] [address] Referring 02/04/22 Jolene Osuna RN Manager Operations Research 12/20/22 Order Management Specialist Relationship Specialty Start Date End Date Christopher Bonilla MD 174 [place], [place] 149781 PCP - General Family Medicine 10/10/17 Junaid Arriaga MD [address] [facility] 3[address] [place] [address] Physician Cardiology 05/04/21 Santos Calvin MD [address] [place] [address] Physician Urology 09/13/21 Flaquito Mariee MD [address] [place] [address] Salesperson Driver Pulmonary Disease 10/25/21 Christopher Bonilla MD 174 [facility] [place] [address] Home Care Provider Family Medicine 02/03/22 Mera Langford MD 1 [place] [address] Referring 02/04/22 Jolene Osuna public events facilities rental managerManager Operations Research 12/20/22 Order Management Specialist Relationship Specialty Start Date End Date Christopher Bonilla MD 1740 [facility] [place] [address] PCP - General Family Medicine 10/10/17 Junaid Arriaga MD [address] [place] [address] Physician Cardiology 05/04/21 Santos Calvin MD [address] [place] [address] Physician Urology 09/13/21 Flaquito Mariee MD [address] [address] Salesperson Driver Pulmonary Disease 10/25/21 Christopher Bonilla MD [address] [place] [address] Home Care Provider Family Medicine 02/03/22 Mera Langford MD 1 [place], [place] [phone] Referring 02/04/22 Jolene Osuna, public events facilities rental managerManager Operations Research 12/20/22 Order Management Specialist Relationship Specialty Start Date End Date Christopher Bonilla MD [address] [place], [place] 441921 PCP - General Family Medicine 10/10/17 Junaid Arriaga MD [address] [address] Physician Cardiology 05/04/21 Santos Calvin MD [address] [place] [address] Physician Urology 09/13/21 Flaquito Mariee MD [address] [place] [address] Salesperson Driver Pulmonary Disease 10/25/21 Christopher Bonilla MD [address] [place] [address] Home Care Provider Family Medicine 02/03/22 Mera Langford MD 1 [place], [place] [phone] Referring 02/04/22 Jolene Osuna, public events facilities rental managerManager Operations Research 12/20/22 Order Management Specialist Relationship Specialty Start Date End Date Christopher Bonilla MD [address] [place], [place] 69695691 PCP - General Family Medicine 10/10/17 Junaid Arriaga MD 176 [address]iela [address] [address] [place], [place] 9[address]01 Physician Cardiology 05/04/21 Santos Calvin MD [address] 888961 Physician Urology 09/13/21 Flaquito Mariee MD [address] [facility] [place] [address] Salesperson Driver Pulmonary Disease 10/25/21 Christopher Bonilla MD [address] [place] [address] Home Care Provider Family Medicine 02/03/22 Mera Langford MD 1 [place] [address] Referring 02/04/22 Jolene Osuna, public events facilities rental managerManager Operations Research 12/20/22 Order Management Specialist Relationship Specialty Start Date End Date Christopher Bonilla MD [address] [place], [place] 755421 PCP - General Family Medicine 10/10/17 Junaid Arriaga MD [address] [place] [address] Physician Cardiology 05/04/21 Santos Calvin MD [address] [address] Physician Urology 09/13/21 Flaquito Mariee MD [address] [place] [address] Salesperson Driver Pulmonary Disease 10/25/21 Christopher Bonilla MD [address] [place], [place] 328461 Home Care Provider Family Medicine 02/03/22 Mera Langford MD 1 [place] [address] Referring 02/04/22 Jolene Osuna, public events facilities rental managerManager Operations Research 12/20/22 Order Management Specialist Relationship Specialty Start Date End Date Christopher Bonilla MD [address] [place] [address] PCP - General Family Medicine 10/10/17 Junaid Arriaga MD [address] [place] [address] Physician Cardiology 05/04/21 Santos Calvin MD [address] [place] [address] Physician Urology 09/13/21 Flaquito Mariee MD [address] [address] Salesperson Driver Pulmonary Disease 10/25/21 Christopher Bonilla MD [address] [place] [address] Home Care Provider Family Medicine 02/03/22 Mera Langford MD 1 [place] [address] Referring 02/04/22 Jolene Osuna, public events facilities rental managerManager Operations Research 12/20/22 Order Management Specialist Relationship Specialty Start Date End Date Christopher Bonilla MD [address] [place], [place] 365201 PCP - General Family Medicine 10/10/17 Junaid Arriaga MD 1761 [facility] [address] [place] [address] Physician Cardiology 05/04/21 Santos Calvin MD [address] [place] [address] Physician Urology 09/13/21 Flaquito Mariee MD [address] [place] [address] Salesperson Driver Pulmonary Disease 10/25/21 Christopher Bonilla MD [address] [place] [address] Home Care Provider Family Medicine 02/03/22 Mera Langford MD 1 [place] [address] Referring 02/04/22 Jolene Osuna, public events facilities rental managerManager Operations Research 12/20/22 Order Management Specialist Relationship Specialty Start Date End Date Christopher Bonilla MD [address] [place], [place] 588421 PCP - General Family Medicine 10/10/17 Junaid Arriaga MD [address] [place] [address] Physician Cardiology 05/04/21 Santos Calvin MD [address] [address] Physician Urology 09/13/21 Flaquito Mariee MD [address] [place] [address] Salesperson Driver Pulmonary Disease 10/25/21 Christopher Bonilla MD 174 [place] [address] Home Care Provider Family Medicine 02/03/22 Mera Langford MD 1 [place] [address] Referring 02/04/22 Jolene Osuna, public events facilities rental managerManager Operations Research 12/20/22 Order Management Specialist Relationship Specialty Start Date End Date Christopher Bonilla MD [address] [place] [address] PCP - General Family Medicine 10/10/17 Junaid Arriaga MD [address] [address] Physician Cardiology 05/04/21 Santos Calvin MD [address] [address] Physician Urology 09/13/21 Flaquito Mariee MD [address] [place] [address] Salesperson Driver Pulmonary Disease 10/25/21 Christopher Bonilla MD [address] [place], [place] 844901 Home Care Provider Family Medicine 02/03/22 Mera Langford MD 1 [place], [place] [phone] Referring 02/04/22 Concha Rocha, public events facilities rental managerManager Operations Research 07/08/22 3 Order Management Specialist Relationship Specialty Start Date End Date Christopher Bonilla MD 174 [place], [place] 171701 PCP - General Family Medicine 10/10/17 Junaid Arriaga MD [address] [address] Physician Cardiology 05/04/21 Santos Calvin MD [address] [place] [address]211 Physician Urology 09/13/21 Flaquito Mariee MD [address] [place] [address] Salesperson Driver Pulmonary Disease 10/25/21 Christopher Bonilla MD [address] [place], [place] 983841 Home Care Provider Family Medicine 02/03/22 Mera Langford MD 1 [place], [place] [phone] Referring 02/04/22 Concha Rocha, public events facilities rental managerManager Operations Research 07/08/22 3 Order Management Specialist Relationship Specialty Start Date End Date Christopher Bonilla MD [address] [place], [place] 399971 PCP - General Family Medicine 10/10/17 Elisabeth Shannon RN [address] [place] [address] Manager Operations Research 02/11/2107/07 Junaid Arriaga MD 1761 [facility] 3[address] [place] [address] Physician Cardiology 05/04/21 Santos Calvin MD 546 [facility] [address] [place] [address] Physician Urology 09/13/21 Flaquito Mariee MD 176 [facility] [place] [place] [address] Salesperson Driver Pulmonary Disease 10/25/21 Christopher Bonilla MD 174 [place] [address] Home Care Provider Family Medicine 02/03/22 Mera Langford MD 1 [place] [address] Referring 02/04/22 Order Management Specialist Relationship Specialty Start Date End Date Christopher Bonilla MD 174 [place] [address] PCP - General Family Medicine 10/10/17 Elisabeth Shannon RN [address] [place] [address] Manager Operations Research 02/11/2107/07 Junaid Arriaga MD [address] [facility] 3A [place], [place] 627391 Physician Cardiology 05/04/21 Santos Calvin MD 546 [facility] [address] [place], [place] 065281 Physician Urology 09/13/21 Flaquito Mariee MD 176 [facility] [place], [place] [address]31 Salesperson Driver Pulmonary Disease 10/25/21 Christopher Bonilla MD [address] [place], [place] 484921 Home Care Provider Family Medicine 02/03/22 Mera Langford MD 1 [place] [address] Referring 02/04/22 Erik Hassan, RN [address] [place] [address] Elocution Teacher Post Acute Care 02/08/22 03/08/22 Order Management Specialist Relationship Specialty Start Date End Date Christopher Bonilla MD [address] [place], [place] 240551 PCP - General Family Medicine 10/10/17 Elisabeth Shannon, RN [address] [place] [address] Manager Operations Research 02/11/2107/07 Junaid Arriaga MD [address] [facility] 3A [place], [place] 343521 Physician Cardiology 05/04/21 Order Management Specialist Relationship Specialty Start Date End Date Christopher Bonilla MD [address] [place], [place] 399531 PCP - General Family Medicine 10/10/17 Elisabeth Shannon, RN 6000 [facility], [place] [id number] Manager Operations Research 02/11/2107/07 Junaid Arriaga MD 176 [facility] [address] [place], [place] 989091 Physician Cardiology 05/04/21 Santos Calvin MD [address] [place] [address]451 Physician Urology 09/13/21 Order Management Specialist Relationship Specialty Start Date End Date Christopher Bonilla MD 174 [place] [address] PCP - General Family Medicine 10/10/17 Elisabeth Shannon, [place] [address] [place], [place] 9805131 Manager Operations Research 02/11/2107/07 Junaid Arriaga MD [address] [address] Physician Cardiology 05/04/21 Order Management Specialist Relationship Specialty Start Date End Date Christopher Bonilla MD [address] [place], [place] 606371 PCP - General Family Medicine 10/10/17 Elisabeth Shannon, [place] [address] [place] [address] Manager Operations Research 02/11/2107/07 Junaid Arriaga MD [address] [facility] 3[address] [place], [place] 746721 Physician Cardiology 05/04/21 Order Management Specialist Relationship Specialty Start Date End Date Christopher Bonilla MD 1740 [facility], [place] [address]31 PCP - General Family Medicine 10/10/17 Elisabeth Shannon, RN [address] [place] [address] Manager Operations Research 02/11/2107/07 Junaid Arriaga MD 176 [facility] [address] [place] [address] Physician Cardiology 05/04/21 Order Management Specialist Relationship Specialty Start Date End Date Christopher Bonilla MD 1740 [facility] [place] [address] PCP - General Family Medicine 10/10/17 Order Management Specialist Relationship Specialty Start Date End Date Christopher Bonilla MD 1740 [facility] [place] [address] PCP - General Family Medicine 10/10/17 Junaid Arriaga MD [address] [facility] [address] [place] [address] Physician Cardiology 05/04/21 Santos Calvin MD [address] [place] [address], [place] [address] Physician Urology 09/13/21 Flaquito Mariee MD [address] [place], [place] 229041 Salesperson Driver Pulmonary Disease 10/25/21 Christopher Bonilla MD [address] [place], [place] 784011 Home Care Provider Family Medicine 02/03/22 Mera Langford MD 1 [place], [place] [phone] Referring 02/04/22 Jolene Osuna RN Manager Operations Research 12/20/22 Dalila Jensen APRN.HOT SAW OPERATOR [address] [place], [place] 746241 Ear Machine Operator Family [facility] 05/13/24 Mimi Encinas TOPOLOGY PROFESSOR.HOT SAW OPERATOR [address] [place], [place] 012061 Ear Machine Operator Family [facility] 05/13/24 Order Management Specialist Relationship Specialty Start Date End Date Christopher Bonilla MD [address] [place], [place] 251391 PCP - General Family Medicine 10/10/17 Junaid Arriaga MD 176 [facility] [address] [facility] [address] [place] [address] Physician Cardiology 05/04/21 Santos Calvin MD [address] [place] [address] 796601 Physician Urology 09/13/21 Flaquito Mariee MD [address] [facility] [place], [place] 872941 Salesperson Driver Pulmonary Disease 10/25/21 Christopher Bonilla MD [address] [place], [place] 047111 Home Care Provider Family Medicine 02/03/22 Mera Langford MD 1 [place], [place] [phone] Referring 02/04/22 Jolene Osuna, public events facilities rental managerManager Operations Research 12/20/22 Dalila Jensen, PADMA.HOT SAW OPERATOR [address] [place], [place] [id number] Ear Machine Operator [facility] 05/13/24 Mimi Encinas TOPOLOGY PROFESSOR.HOT SAW OPERATOR [address] [place], [place] 755741 Ear Machine Operator [facility] 05/13/24 Order Management Specialist Relationship Specialty Start Date End Date Christopher Bonilla MD 174 [place], [place] 557361 PCP - General Family Medicine 10/10/17 Junaid Arriaga MD [address] [place] [address] Physician Cardiology 05/04/21 Santos Calvin MD [address] [place] [address] 210 [place] [address] Physician Urology 09/13/21 Flaquito Mariee MD [address] [place] [address] Salesperson Driver Pulmonary Disease 10/25/21 Christopher Bonilla MD [address] [place], [place] 534921 Home Care Provider Family Medicine 02/03/22 Mera Langford MD 1 [place] [address] Referring 02/04/22 Jolene Osuna, public events facilities rental managerManager Operations Research 12/20/22 Dalila Jensen, PADMA.HOT SAW OPERATOR [address] [place], [place] 412141 Ear Machine Operator [facility] 05/13/24 Mimi Encinas APRN.HOT SAW OPERATOR [address] [place], [place] 069311 Ear Machine Operator Family [facility] 05/13/24 Order Management Specialist Relationship Specialty Start Date End Date Christopher Bonilla MD [address] [place], [place] 442011 PCP - General Family Medicine 10/10/17 Junaid Arriaga MD [address] [address] [place] [address] Physician Cardiology 05/04/21 Santos Clavin MD [address] [place] [address] Physician Urology 09/13/21 Flaquito Mariee MD 176 [facility] [place] [address] Salesperson Driver Pulmonary Disease 10/25/21 Christopher Bonilla MD [address] [place] [address] Home Care Provider Family Medicine 02/03/22 Mera Langford MD 1 [place], [place] [phone] Referring 02/04/22 Dalila Jensen APRN.HOT SAW OPERATOR [address] [place], [place] 484401 Ear Machine Operator Family Medicine 05/13/24 Order Management Specialist Relationship Specialty Start Date End Date Christopher Bonilla MD [address] [place], [place] 567891 PCP - General Family Medicine 10/10/17 Junaid Arriaga MD [address] [address] Physician Cardiology 05/04/21 Santos Calvin MD [address] [place] [address] Physician Urology 09/13/21 Flaquito Mariee MD [address] [place] [address] Salesperson Driver Pulmonary Disease 10/25/21 Christopher Bonilla MD [address] [place] [address] Home Care Provider Family Medicine 02/03/22 Mera Langford MD [address] [place], [place] [id number] Referring 02/04/22 Dalila Jensen APRN.HOT SAW OPERATOR [address] [place] [address] Ear Machine Operator Family Medicine 05/13/24 Mimi Encinas APRN.HOT SAW OPERATOR [address] [place] [address] Ear Machine Operator Family Medicine 05/13/24 Order Management Specialist Relationship Specialty Start Date End Date Christopher Bonilla MD [address] [place], [place] 338641 PCP - General Family Medicine 10/10/17 Junaid Arriaga MD [address] [address] Physician Cardiology 05/04/21 Santos Calvin MD [address] [place] [address] Physician Urology 09/13/21 Flaquito Mariee MD [address] [place] [address] Salesperson Driver Pulmonary Disease 10/25/21 Christopher Bonilla MD [address] [place] [address] Home Care Provider Family Medicine 02/03/22 Mera Langford MD [address] [place], [place] [id number] Referring 02/04/22 Dalila Jensen APRN.HOT SAW OPERATOR [address] [place], [place] 485721 Ear Machine Operator Family Medicine 05/13/24 Mimi Encinas APRN.HOT SAW OPERATOR [address] [facility] [place] [address] Ear Machine Operator Family [facility] 05/13/24 Order Management Specialist Relationship Specialty Start Date End Date Christopher Bonilla MD [address] [facility] [place] [address] PCP - General Family Medicine 10/10/17 Junaid Arriaga MD [address]61 [facility] [address] [place], [place] [address] Physician Cardiology 05/04/21 Santos Calvin MD [address] [place] [address] Physician Urology 09/13/21 Flaquito Mariee MD [address]61 [facility] [place] [address] Salesperson Driver Pulmonary Disease 10/25/21 Christopher Bonilla MD [address] [facility] [place] [address] Home Care Provider Family Medicine 02/03/22 Mera Langford MD [address] [place] [address] Referring 02/04/22 Dalila Jensen APRN.HOT SAW OPERATOR [address] [place] [address] Ear Machine Operator [facility] 05/13/24 Mimi Encinas APRN.HOT SAW OPERATOR [address] [place], [place] 77[address]71 Ear Machine Operator Family Medicine 05/13/24 Order Management Specialist Relationship Specialty Start Date End Date Christopher Bonilla MD [address] [place], [place] [address]25881 PCP - General Family Medicine 10/10/17 Junaid Arriaga MD [address]61 [facility] [address] [place] [address] Physician Cardiology 05/04/21 Santos Calvin MD [address] [place] [address] Physician Urology 09/13/21 Flaquito Mariee MD [address] [place] [address] Salesperson Driver Pulmonary Disease 10/25/21 Christopher Bonilla MD [address] [place], [place] 437521 Home Care Provider Family Medicine 02/03/22 Mera Langford MD 1 [place] [address] Referring 02/04/22 Dalila Jensen APRN.HOT SAW OPERATOR [address] [place] [address] Ear Machine Operator Family Medicine 05/13/24 Mimi Encinas APRN.HOT SAW OPERATOR [address] [place] [address] Ear Machine Operator Family Medicine 05/13/24 Order Management Specialist Relationship Specialty Start Date End Date Christopher Bonilla MD [address] [place], [place] 188371 PCP - General Family Medicine 10/10/17 Junaid Arriaga MD [address] [facility] [address] [place] [address] Physician Cardiology 05/04/21 Santos Calvin MD [address] [address] Physician Urology 09/13/21 Flaquito Mariee MD [address] [facility] [place] [address] Salesperson Driver Pulmonary Disease 10/25/21 Christopher Bonilla MD [address] [place] [address] Home Care Provider Family Medicine 02/03/22 Mera Langford MD 1 [place] [address] Referring 02/04/22 Dalila Jensen APRN.HOT SAW OPERATOR [address] [place] [address] Ear Machine Operator Family Medicine 05/13/24 Mimi Encinas TOPOLOGY PROFESSOR.HOT SAW OPERATOR [address] [place], [place] [address] Ear Machine Operator Family Medicine 05/13/24 Order Management Specialist Relationship Specialty Start Date End Date Christopher Bonilla MD [address] [place], [place] 684751 PCP - General Family Medicine 10/10/17 Junaid Arriaga MD [address] [facility] [address] [place], [place] [address] Physician Cardiology 05/04/21 Santos Calvin MD 546 [facility] [address] [place] [address] Physician Urology 09/13/21 Flaquito Mariee MD [address] [facility] [place] [address] Salesperson Driver Pulmonary Disease 10/25/21 Christopher Bonilla MD [address] [facility] [place] [address] Home Care Provider Family Medicine 02/03/22 Mera Langford MD 1 [place] [address] Referring 02/04/22 Dalila Jensen APRN.HOT SAW OPERATOR [address] [facility] [place] [address] Ear Machine Operator Family Medicine 05/13/24 Mimi Encinas APRN.HOT SAW OPERATOR [address] [facility] [place] [address] Ear Machine Operator Family Medicine 05/13/24 Order Management Specialist Relationship Specialty Start Date End Date Christopher Bonilla MD [address] [facility] [place] [address] PCP - General Family Medicine 10/10/17 Junaid Arriaga MD [address]61 [facility] [address] [place] [address] Physician Cardiology 05/04/21 Santos Calvin MD [address] [place] [address] [address] [place] [address] Physician Urology 09/13/21 Flaquito Mariee MD [address]61 [facility] [place] [address] Salesperson Driver Pulmonary Disease 10/25/21 Christopher Bonilla MD [address] [place] [address] Home Care Provider Family Medicine 02/03/22 Mera Langford MD 1 [place] [address] Referring 02/04/22 Dalila Jensen APRN.HOT SAW OPERATOR [address] [place] [address] Ear Machine Operator Family Medicine 05/13/24 Mimi Encinas, TOPOLOGY PROFESSOR.HOT SAW OPERATOR [address] [place] [address] Ear Machine Operator Family Medicine 05/13/24 Order Management Specialist Relationship Specialty Start Date End Date Christopher Bonilla MD [address] [place] [address] PCP - General Family Medicine 10/10/17 Junaid Arriaga MD [address]61 [facility] [address] [place] [address] Physician Cardiology 05/04/21 Santos Calvin MD [address], [place] [address] Physician Urology 09/13/21 Flaquito Mariee MD [address] [facility] [place], [place] [address] Salesperson Driver Pulmonary Disease 10/25/21 Christopher Bonilla MD [address] [facility] [place] [address] Home Care Provider Family Medicine 02/03/22 Mera Langford MD [address] [place], [place] [id number] Referring 02/04/22 Dalila Jensen APRN.HOT SAW OPERATOR [address] [place] [address] Ear Machine Operator Family Medicine 05/13/24 Mimi Encinas APRN.HOT SAW OPERATOR [address] [facility], [place] [address] Ear Machine Operator Family Medicine 05/13/24 Team Status: Active Member Role/Relationship Status Dates Dr. Christopher Bonilla MD Primary Care Provider Active Team Status: Inactive Member Role/Relationship Status Dates Dr. Christopher Bonilla MD Primary Care Provider Active Start: December 05, 2024 End: December 05, 2024 Dr. Christopher Bonilla MD Referring Provider Active Start: December 05, 2024 End: December 05, 2024 Hima Tijerina OFFBEARER, OFFBEARER-C Attending Provider Active Start: December 05, 2024 End: December 05, 2024 Order Management Specialist Relationship Specialty Start Date End Date Christopher Bonilla MD [address] [place], [place] 803521 PCP - General Family Medicine 10/10/17 Junaid Arriaga MD [address]61 [facility] [address] [place], [place] [address] Physician Cardiology 05/04/21 Santos Calvin MD 546 [facility] [address] [place] [address] Physician Urology 09/13/21 Flaquito Mariee MD [address]61 [facility] [place] [address] Salesperson Driver Pulmonary Disease 10/25/21 Christopher Bonilla MD [address] [facility] [place] [address] Home Care Provider Family Medicine 02/03/22 Mera Langford MD 1 [place] [address] Referring 02/04/22 Dalila Jensen APRN.HOT SAW OPERATOR [address] [facility] [place] [address] Ear Machine Operator Family Medicine 05/13/24 Mimi Encinas APRN.HOT SAW OPERATOR [address] [facility], [place] [address] Ear Machine Operator Family Medicine 05/13/24 Team Status: Active Member Role/Relationship Status Dates Dr. Christopher Bonilla MD Primary Care Provider Active Start: December 20, 2024 Hima Tijerina OFFBEARER, OFFBEARER-C Attending Provider Active Start: December 20, 2024 Hima Tijerina OFFBEARER, OFFBEARER-C Referring Provider Active Start: December 20, 2024 Team Status: Inactive Member Role/Relationship Status Dates Dr. Christopher Bonilla MD Primary Care Provider Active Start: December 20, 2024 End: December 20, 2024 MICAH Nunez Attending Provider Active Start: December 20, 2024 End: December 20, 2024 MICAH Nunez Referring Provider Active Start: December 20, 2024 End: December 20, 2024 Hima Tijerina OFFBEARER, OFFBEARER-C Other Provider Active Sta rt: December 20, 2024 End: December 20, 2024 Team Status: Inactive Member Role/Relationship Status Dates Dr. Christopher Bonilla MD Primary Care Provider Active Start: December 20, 2024 End: December 20, 2024 Hima Tijerina OFFBEARER, OFFBEARER-C Attending Provider Active Start: December 20, 2024 End: December 20, 2024 Hima Tijerina OFFBEARER, OFFBEARER-C Referring Provider Active Start: December 20, 2024 End: December 20, 2024 Team Status: Inactive Member Role/Relationship Status Dates Dr. Christopher Bonilla MD Primary Care Provider Active Start: January 02, 2025 End: January 02, 2025 Dr. Pablo Watson , Referring Provider Activ e Start: January 02, 2025 End: January 02, 2025 Dr. Pablo Watson , DO Emergency Provider Activ e Start: January 02, 2025 End: January 02, 2025 Order Management Specialist Relationship Specialty Start Date End Date Christopher Bonilla MD [address] [place] [address] PCP - General Family Medicine 10/10/17 Junaid rAriaga MD [address]61 [facility] [address] [place], [place] [address] Physician Cardiology 05/04/21 Santos Calvin MD [address] [place] [address] Physician Urology 09/13/21 Flaquito Mariee MD [address]61 [facility] [place] [place] [address] Salesperson Driver Pulmonary Disease 10/25/21 Christopher Bonilla MD [address] [place], [place] 278691 Home Care Provider Family Medicine 02/03/22 Mera Langford MD 1 [place] [address] Referring 02/04/22 Dalila Jensen APRN.HOT SAW OPERATOR [address] [place], [place] 13835691 Ear Machine Operator Family [facility] 05/13/24 Mimi Encinas TOPOLOGY PROFESSOR.HOT SAW OPERATOR [address] [place] [address] Ear Machine Operator Family [facility] 05/13/24 Order Management Specialist Relationship Specialty Start Date End Date Christopher Bonilla MD [address] [place] [address] PCP - General Family Medicine 10/10/17 Junaid Arriaga MD [address] [facility] [facility] [address] [place] [address] Physician Cardiology 05/04/21 Santos Calvin MD 546 [facility] [address] [place] [address] Physician Urology 09/13/21 Flaquito Mariee MD [address] [place] [address] Salesperson Driver Pulmonary Disease 10/25/21 Christopher Bonilla MD [address] [place] [address] Home Care Provider Family Medicine 02/03/22 Mera Langford MD 1 [place] [address] Referring 02/04/22 Dalila Jensen APRN.HOT SAW OPERATOR [address] [place] [address] Ear Machine Operator Family [facility] 05/13/24 Mimi Encinas APRN.HOT SAW OPERATOR [address] [place] [address] Ear Machine Operator [facility] 05/13/24 Team Status: Inactive Member Role/Relationship Status [...] Provider Active St art: January 24, 2025 Order Management Specialist Relationship Specialty Start Date End Date Christopher Bonilla MD [address] [place], [place] [id number] PCP - General Family Medicine 10/10/17 Junaid Arriaga MD [address]61 [facility] [address] [place], [place] [id number] Physician Cardiology 05/04/21 Santos Calvin MD [address] [place] [address] [address] [place], [place] [id number] Physician Urology 09/13/21 Flaquito Mariee MD [address]61 [facility] [place] [address] Salesperson Driver Pulmonary Disease 10/25/21 Christopher Bonilla MD [address] [facility] [place] [address] Home Care Provider Family Medicine 02/03/22 Mera Langford MD 1 [place] [address] Referring 02/04/22 Dalila Jensen APRN.HOT SAW OPERATOR [address] [facility] [place] [address] Ear Machine Operator Family Medicine 05/13/24 Mimi Encinas APRN.HOT SAW OPERATOR [address] [facility] [place] [address] Ear Machine Operator Family Medicine 05/13/24 Order Management Specialist Relationship Specialty Start Date End Date Christopher Bonilla MD [address] [facility] [place] [address] PCP - General Family Medicine 10/10/17 Junaid Arriaga MD [address] [place] [address] Physician Cardiology 05/04/21 Santos Calvin MD [address] [place] [address] Physician Urology 09/13/21 Flaquito Mariee MD [address] [facility] [place] [address] Salesperson Driver Pulmonary Disease 10/25/21 Christopher Bonilla MD [address] [place], [place] 3[address]31 Home Care Provider Family Medicine 02/03/22 Mera Langford MD 1 [place] [address] Referring 02/04/22 Dalila Jensen APRN.HOT SAW OPERATOR [address] [place], [place] [address] Ear Machine Operator Family [facility] 05/13/24 Mimi Encinas TOPOLOGY PROFESSOR.HOT SAW OPERATOR [address] [place] [address] Ear Machine Operator Family [facility] 05/13/24 Order Management Specialist Relationship Specialty Start Date End Date Christopher Bonilla MD [address] [place] [address] PCP - General Family Medicine 10/10/17 Junaid Arriaga MD [address] [facility] [address] [place] [address] Physician Cardiology 05/04/21 Santos Calvin MD 546 [facility] [address] [place] [address] Physician Urology 09/13/21 Flaquito Mariee MD [address] [place] [address] Salesperson Driver Pulmonary Disease 10/25/21 Christopher Bonilla MD [address] [place] [address] Home Care Provider Family Medicine 02/03/22 Mera Langford MD 1 [place] [address] Referring 02/04/22 Dalila Jensen APRN.HOT SAW OPERATOR [address] [place] [address] Ear Machine Operator Family [facility] 05/13/24 Mimi Encinas APRN.HOT SAW OPERATOR [address] [place] [address] Ear Machine Operator Family [facility] 05/13/24 Team Status: Active Member Role/Relationship Status Dates Dr. Christopher Bonilla MD Primary care physician Active Team Status: Inactive Member Role/Relationship Status Dates Dr. Christopher Bonilla MD Primary care physician Active Start: December 05, 2024 End: December 05, 2024 Dr. Christopher Bonilla MD Referring Provider Active Start: December 05, 2024 End: December 05, 2024 Hima Tijerina OFFBEARER, OFFBEARER-C Attending physician Active Start: December 05, 2024 End: December 05, 2024 Team Status: Inactive Member Role/Relationship Status Dates Dr. Christopher Bonilla MD Primary care physician Active Start: December 20, 2024 End: December 20, 2024 Hima Tijerina OFFBEARER, OFFBEARER-C Attending physician Active Start: December 20, 2024 End: December 20, 2024 Hima Tijerina OFFBEARER, OFFBEARER-C Referring Provider Active Start: December 20, 2024 End: December 20, 2024 Team Status: Inactive Member Role/Relationship Status Dates Dr. Christopher Bonilla MD Primary care physician Active Start: December 20, 2024 End: December 20, 2024 MICAH Nunez Attending physician Active Start: December 20, 2024 End: December 20, 2024 MICAH Nunez Referring Provider Active Start: December 20, 2024 End: December 20, 2024 Hima Tijerina OFFBEARER, OFFBEARER-C Nurse Practitioner Active Start: December 20, 2024 [...] Active Start: January 24, 2025 Dr. Philip Mosteller , DO Nurse Practitioner Active Start: January 24, [...] physician Active Start: January 25, 2025 Dr. Christine Borges MD Nurse Practitioner [...] BE BASED ON THE PRIMARY CLINICAL RECORDS. [facility] [employer] [facility]. provides no warranty or guarantee of the accuracy or completeness of information in this document.
[2025-05-01 18:03] LABS: Hematocrit 42.5 % (37-47); Hemoglobin 13.6 g/dL (12.0-15.0); Immature Granulocytes Count 0.070 X10^3/uL (0.0-0.0); Mean Corp Hgb Conc 32.0 g/dL (32-36); Mean Corpuscular Volume 88.7 fL (81-99); Mean Platelet Vol. 9.2 fl (6.2-12.0); NRBC Flagged by Analyzer 0 % (0-5); Platelet Count 322 K/mm3 (150-450); RBC Distribution Width CV 14.8 % (11.6-14.6); RBC Distribution Width SD 48.1 fl (35.1-43.9); Red Blood Count 4.79 M/mm3 (4.2-5.4); White Blood Count 11.1 K/mm3 (4.4-11.0)
--- NOTE | 2025-05-01 18:12 | ED.VIS.GI ---
HPI HPI - GI History of Present Illness Chief Complaint: Abd Pain Narrative Narrative: Patient is a 79 year old female with history of chronic anticoagulation on Coumadin, prior to atrial fibrillation, hypertension, Marfan syndrome Ernandez's esophagus presenting with worsening abdominal pain, bloating and distention. Patient was seen and evaluated in ER on 04/16 and diagnosed with choledocholithiasis with concern for gastric outlet obstruction. At that time they recommended transfer to [facility] however patient ultimately left AMA and did not want any surgical intervention. She states over the past 2 weeks she has been eating and drinking and seems to be doing okay however today she had gradual onset of worsening abdominal pain. States her stomach feels very bloated and distended. She is a lot of pressure in her abdomen. Has associated nausea but no vomiting. Has chills but no fever reported. States she did have a bowel movement today. States she feels mildly short of breath but states it is from her abdominal pain and pressure. Denies any chest pain. Denies any urinary symptoms. No trauma reported. No other complaints or concerns at this time. [facility] Medical History Anticoagulant long-term use CHF exacerbation History of atrial fibrillation Acute exacerbation of chronic obstructive pulmonary disease Chronic anticoagulation Hypoxia Mitral valve insufficiency Ernandez's esophagus with dysplasia Wears glasses Ambulates with cane Arthritis High cholesterol Difficulty chewing Shortness of breath on exertion History of echocardiogram Cardiology follow-up encounter Bloating Abdominal pain steersman current use of amiodarone Paroxysmal atrial fibrillation Essential hypertension Mixed hyperlipidemia Chronic atrial fibrillation with RVR Exudative pleural effusion Renal cyst Hepatic congestion Recurrent pleural effusion Leukocytosis Embolic infarction Renal infarction Splenic infarction Substance abuse Goiter Non-smoker Atrial fibrillation Congestive heart failure (CHF) Hypertension Rheumatoid arthritis COPD (chronic obstructive pulmonary disease) Pleural effusion Rheumatoid arthritis Paroxysmal atrial fibrillation with RVR Subtherapeutic international normalized ratio (INR) Chronic anticoagulation Pulmonary hypertension Hypokalemia Hyponatremia PNA (pneumonia) COPD (chronic obstructive pulmonary disease) PAF (paroxysmal atrial fibrillation) HTN (hypertension) GERD (gastroesophageal reflux disease) HLD (hyperlipidemia) Marfans syndrome Home Medications ?Medication ?Instructions ?Recorded ?Last Taken ?Type calcium carbonate 600 mg PO DAILY SUPPLEMENT 06/19/19 07/12/21 History multivitamin 1 tab PO DAILY SUPPLEMENT 01/15/20 02/07/22 History albuterol sulfate 90 mcg/actuation 2 puff inhalation Q4H PRN SOB 01/09/20 1 Week Ago History aerosol inhaler ~06/30/21 omeprazole 20 mg capsule,delayed 20 mg PO BID reflux 12/05/24 Unknown History release fluticasone propionate 50 1 - 2 spray intranasal DAILY PRN 01/22/25 Unknown History mcg/actuation nasal health maintnance spray,suspension warfarin 2 mg tablet 2 mg PO SUMOWEFR blood thinner 01/22/25 Unknown History amiodarone 200 mg tablet 100 mg (1/2 x 200 mg) PO DAILY 02/24/25 Unknown Rx heart rate #45 tabs gabapentin 100 mg capsule 100 mg PO BID PRN nerve pain 04/06/25 Unknown History warfarin 3 mg tablet 3 mg PO TUTHSA blood thinner 04/06/25 Unknown History spironolactone 25 mg tablet 25 mg PO BID #60 tabs 04/08/25 Unknown Rx diltiazem HCl 120 mg 120 mg PO QAM #30 caps 04/30/25 Unknown Rx capsule,extended release 24 hr (Cardizem CD) diltiazem HCl 120 mg 120 mg PO QAM #90 caps 04/30/25 Unknown Rx capsule,extended release 24 hr (Cardizem CD) metoprolol tartrate 50 mg tablet 50 mg PO BID #180 tabs 04/30/25 Unknown Rx digoxin 125 mcg (0.125 mg) tablet 125 mcg PO DAILY 05/01/25 Unknown History Allergy/AdvReac Type Severity Reaction Status Date / Time pneumococcal vaccine (From Allergy Severe Rash Verified 05/01/25 17:26 Prevnar 13 (PF)) Latex, Natural Rubber Allergy Rash Verified 05/01/25 17:26 rosuvastatin calcium (From Allergy myalgias Verified 05/01/25 17:26 Crestor) ibuprofen AdvReac Nausea Verified 05/01/25 17:26 Family History Mother Diabetes Colon cancer Marfan syndrome Sister Diabetes Hypertension Brother Marfan syndrome COPD (chronic obstructive pulmonary disease) Brother Marfan syndrome Father Gastric ulcer GERD (gastroesophageal reflux disease) Surgical History History of eye surgery History of hysterectomy Social History household members: spouse and children housing: house Smoking Status: Never smoker alcohol intake: never substance use type: does not use caffeine: Yes Type: coffee Number of servings: 4 ROS ROS ED Constitutional Constitutional ED: Reports chills; Denies fever(s) Cardiovascular Cardiovascular: Denies chest pain Respiratory/Chest Respiratory/Chest: Reports dyspnea; Denies cough Gastrointestinal Gastrointestinal: Reports abdominal pain and nausea; Denies diarrhea, melena or vomiting Genitourinary Genitourinary ED: Denies dysuria Musculoskeletal Musculoskeletal: Denies arthralgias or myalgias Neurologic Neurologic: Reports weakness Hematologic/Lymphatic Hematologic/Lymphatic: Reports easy bleeding, easy bruising and other Details: On Coumadin EXAM Physical Exam Const Vital Signs: 05/01/25 17:23 05/01/25 19:15 05/01/25 19:22 Temperature 97.9 F Temperature Source Oral Pulse Rate 109 H 100 Respiratory Rate 22 H 22 H Blood Pressure 136/97 H 122/80 H Blood Pressure Mean 110 94 Pulse Ox 97 89 98 Oxygen Delivery Method Room Air Room Air Nasal Cannula Oxygen Flow Rate (L/min) 97 05/01/25 21:00 05/01/25 23:00 Temperature Temperature Source Pulse Rate 118 H 109 H Respiratory Rate 22 H 22 H Blood Pressure 144/80 H 147/83 H Blood Pressure Mean 101 104 Pulse Ox 97 97 Oxygen Delivery Method Nasal Cannula Nasal Cannula Oxygen Flow Rate (L/min) 97 2 Positive well nourished and well developed Constitutional Narrative: Uncomfortable appearing, holding an emesis bag General Appearance ED: well developed; Negative for pallor HEENT Reports moist mucous membranes Eyes PERRL General Eye ED: Negative for scleral icterus Neck supple and no JVD Resp normal respiratory effort and clear to auscultation bilaterally Cardio regular rate and regular rhythm GI GI Narrative: Distended abdomen with high-pitched bowel sounds present. Tender throughout. No hernia appreciated. Back/Spine no CVA tenderness Extremity full ROM General Extremety ED: Negative for edema General Extremity: Negative for edema Neuro moves all extremities Neuro Narrative: No focal deficits appreciated. Sensorium / Orientation: alert, oriented to person, oriented to place and oriented to time Motor Exam: general weakness Psych mental status grossly normal and thought process normal Skin General Skin Exam: Negative for jaundice or pallor MDM MDM MDM Narrative Medical decision making narrative: Patient valuated for recurrent abdominal pain. Chart review from 04/16/2025 shows that patient was seen in the ER for upper abdominal pain and bloating. Seems like a very similar presentation. At that time case was discussed with surgery who was concerned patient needed ERCP cholecystectomy however with her chronic medical additions and changes of her anatomy felt that she also would require higher level of care.'s concern for possible partial gastric outlet obstruction. All workup looking for differential including cholecystitis, choledocholithiasis, bowel obstruction, ascending cholangitis and volvulus as well as urinary tract infection, dehydration and electrolyte derangement is obtained. She has a mild leukocytosis 11.1. Hemoglobin is normal. INR is therapeutic at 2.7. She has normal kidney function. She does have a mild elevation of her total bilirubin at 1.53 and a direct bilirubin of 0.45. Only minimal elevation of her AST and alkaline phosphatase with normal ALT. This relatively nonspecific and less consistent with an acute choledocholithiasis. CT again shows a distended gallbladder with cholelithiasis, choledocholithiasis with prominent intra and extrahepatic biliary ductal dilation which is not substantially changed. There is also small amount of cholecystic fluid. I am again concerned that she will require cholecystectomy and ERCP. Case is discussed with general surgery on-call, Dr. Farah. He reviewed her films. Agrees with prior surgeon assessment on her last visit that due to her anatomy and underlying comorbidities her medical complexity is too high for hospital. In addition he is concerned that she might have choledochal cyst type IV and possible partial gastric outlet obstruction. Initially patient preferred to go to [facility]. Unfortunately they feel that her level of care is higher than what they can offer and recommend [facility]. Patient is amenable to this. Patient is excepted [facility] With Dr. Hill. Patient is given empiric Zosyn for possible cholecystitis in the emergency room. Is given IV fluids. Otherwise remains hemodynamically stable. Lab Data Attestation: I reviewed the patient's lab results. Labs: Laboratory Results - last 24 hr 05/01/25 05/01/25 05/01/25 15:34 17:52 18:35 WBC 11.1 H RBC 4.79 Hgb 13.6 Hct 42.5 MCV 88.7 MCH 28.4 MCHC 32.0 RDW Std Deviation 48.1 H RDW Coeff of Angelo 14.8 H Plt Count 322 MPV 9.2 Immature Gran % (Auto) 0.600 Neut % (Auto) 80.4 H Lymph % (Auto) 9.9 L Ulster % (Auto) 8.1 Eos % (Auto) 0.5 Baso % (Auto) 0.5 Absolute Neuts (auto) 8.9 H Absolute Lymphs (auto) 1.10 Nucleated RBC % 0 PT 28.1 H INR 2.6 Sodium 136 Potassium 4.5 Chloride 98 Carbon Dioxide 24.7 Anion Gap 13 BUN 12 Creatinine 1.00 Estim Creat Clear Calc 35.62 L Est GFR (MDRD) Non-Af 57 L BUN/Creatinine Ratio 11.6 Glucose 157 H Lactic Acid < 1.0 Calcium 9.1 Total Bilirubin 1.53 H Direct Bilirubin 0.45 H AST 50 H ALT 25 Alkaline Phosphatase 144 H Total Protein 7.6 Albumin 4.3 Globulin 3.3 Urine Color Urine Clarity Urine pH Ur Specific Tyrone Urine Protein Urine Glucose (UA) Urine Ketones Urine Occult Blood Urine Nitrite Urine Bilirubin Urine Urobilinogen Ur Leukocyte Esterase Urine RBC Urine WBC Ur Squamous Epith Cells Urine Bacteria Hyaline Casts Urine Mucus 05/01/25 18:45 WBC RBC Hgb Hct MCV MCH MCHC RDW Std Deviation RDW Coeff of Angelo Plt Count MPV Immature Gran % (Auto) Neut % (Auto) Lymph % (Auto) Ulster % (Auto) Eos % (Auto) Baso % (Auto) Absolute Neuts (auto) Absolute Lymphs (auto) Nucleated RBC % PT INR Sodium Potassium Chloride Carbon Dioxide Anion Gap BUN Creatinine Estim Creat Clear Calc Est GFR (MDRD) Non-Af BUN/Creatinine Ratio Glucose Lactic Acid Calcium Total Bilirubin Direct Bilirubin AST ALT Alkaline Phosphatase Total Protein Albumin Globulin Urine Color Yellow Urine Clarity Clear Urine pH 6.0 Ur Specific Tyrone 1.015 Urine Protein 30 H Urine Glucose (UA) Normal Urine Ketones Negative Urine Occult Blood 10 H Urine Nitrite Negative Urine Bilirubin Negative Urine Urobilinogen 4 H Ur Leukocyte Esterase Negative Urine RBC 0-5 SEEN Urine WBC 0-5 SEEN Ur Squamous Epith Cells 0 SEEN Urine Bacteria 1+ Hyaline Casts 0-5 SEEN Urine Mucus 1+ Radiography Diagnostic Testing: Clinical Impression(s) from Imaging Studies Abdomen/Pelvis CT 05/01/25 18:20 IMPRESSION: Cardiomegaly. Small right basilar pleural effusion. Mottled heterogeneous hepatic parenchymal enhancement, similar to prior exams and likely reflecting cardiogenic hepatic congestion/edema. Distended gallbladder with cholelithiasis, and choledocholithiasis with prominent intra and extrahepatic biliary ductal dilatation, also not substantially changed. Small amount of pericholecystic fluid. Additional ancillary findings as described above. 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, Atrial flutter, Marfan syndrome Prescriptions: No Action multivitamin Tablet 1 tab PO DAILY calcium carbonate 600 mg calcium (1,500 mg) tablet 600 mg PO DAILY albuterol sulfate 90 mcg/actuation HFA aerosol inhaler 2 puff INHALATION Q4H PRN (Reason: SOB) omeprazole 20 mg capsule,delayed release(DR/EC) 20 mg PO BID metoprolol tartrate 50 mg tablet 50 mg PO BID Qty: 180 3RF Rx Instructions: Start once your 30-day prescription runs out diltiazem HCl [Cardizem CD] 120 mg capsule,extended release 24hr 120 mg PO QAM Qty: 90 3RF Rx Instructions: Start once your 30-day prescription runs out diltiazem HCl [Cardizem CD] 120 mg capsule,extended release 24hr 120 mg PO QAM Qty: 30 0RF warfarin 3 mg tablet 3 mg PO TUTHSA gabapentin 100 mg capsule 100 mg PO BID PRN (Reason: nerve pain) spironolactone 25 mg Tablet 25 mg PO BID Qty: 60 0RF digoxin 125 mcg (0.125 mg) tablet 125 mcg PO DAILY warfarin 2 mg tablet 2 mg PO SUMOWEFR fluticasone propionate 50 mcg/actuation spray,suspension 1 - 2 spray INTRANASAL DAILY PRN (Reason: health maintnance) amiodarone 200 mg tablet 100 mg PO DAILY Qty: 45 3RF Primary Care Provider: Wes Magallon Referrals: Wes Magallon MD [Primary Care Provider, Medical] Print Language: Guyanese Disposition Disposition: Acute Care Hospital Discharge Location: [facility]
--- NOTE | 2025-05-01 18:20 | CT_ITS ---
PROCEDURE: CT ABDOMEN/PELVIS W IV CONT ONLY 05/01/2025 REASON FOR EXAM: ABD PAIN TECHNIQUE: Procedure Code: [id number] Modality: CT Procedure: ABDOMEN/PELVIS W IV CONT ONLY Coronal and Sagittal reconstruction series were provided. CONTRAST: Isovue-300 VOLUME: 100 mL One or more dose reduction techniques were used (e.g., Automated exposure control, adjustment of the mA and/or kV according to patient size, use of iterative reconstruction technique. RADIATION DOSE SUMMARY: DLP: 434.33 mGycm COMPARISON: 04/16/2025 FINDINGS: Lung bases: Small right basilar pleural effusion and scattered dependent atelectasis. Prominent four-chamber cardiomegaly with moderate-advanced coronary artery calcifications. Liver: Mottled heterogeneous parenchymal attenuation suggesting hepatic congestion/edema. Few scattered benign-appearing cysts and/or hemangiomata in the right lobe. Gallbladder: Cholelithiasis, with mildly distended gallbladder and prominent intra and extrahepatic biliary ductal dilatation, similar to prior exam. Redemonstrated hyperdense stone in the distal CBD lodged at the ampulla reflecting choledocholithiasis. Small amount of pericholecystic edematous fluid. Spleen: Unremarkable. Pancreas: No definite abnormality. Adrenals: Unremarkable, no discrete nodules. Kidneys: Unremarkable. No urolithiasis or hydronephrosis. Bladder: Underdistended, grossly unremarkable. Reproductive Organs: Prior hysterectomy. Unremarkable adnexal regions. Bowel: No evidence of obstruction. As before, the distended gallbladder and dilated CBD mildly compress the traversing proximal duodenum. No discrete active inflammatory process appreciated. Distal colonic diverticulosis without evidence for active diverticulitis. Lymph nodes: No suspicious lymph node enlargement. Vasculature: Normal caliber abdominal aorta. Moderate-advanced atherosclerotic disease. Peritoneum / Retroperitoneum: No drainable ascites or free air. Small amount of pericholecystic edematous fluid which likely tracks inferiorly into the pelvis. Bones: No acute abnormality. Diffuse qualitative osteopenia. Multilevel degenerative changes of the spine with chronic superior endplate compression fracture deformity of T11. Sacral Tarlov cysts. CT/Abdomen/Pelvis W IV Cont ONLY IMPRESSION: Cardiomegaly. Small right basilar pleural effusion. Mottled heterogeneous hepatic parenchymal enhancement, similar to prior exams a nd likely reflecting cardiogenic hepatic congestion/edema. Distended gallbladder with cholelithiasis, and choledocholithiasis with promine nt intra and extrahepatic biliary ductal dilatation, also not substantially changed. Small amount of pericholecystic fl uid. Additional ancillary findings as described above. Reading Location: [id number]
[2025-05-01 18:37] LABS: AST(SGOT) 50 U/L (<=31); Alanine Aminotransfer ALT/SGPT 25 U/L (<=34); Albumin, Serum 4.3 g/dL (3.4-4.8); Alkaline Phosphatase 144 U/L (35-104); Anion Gap 13 (5-15); BUN 12 mg/dL (4-19); BUN/Creat Ratio 11.6 RATIO (10-20); Bilirubin, Direct 0.45 mg/dL (0.00-0.30); Calcium,Total 9.1 mg/dL (7.6-11.0); Carbon Dioxide 24.7 mmol/L (21.0-32.0); Chloride 98 mmol/L (98-108); Estimated Creatinine Clearance 35.62 ml/min (50-250); Globulin 3.3 g/dL (2.2-4.2); Glucose 157 mg/dL (70-99); Potassium 4.5 mmol/L (3.3-5.1)
[2025-05-01 18:58] LABS: Squamous Epithelial Cells - UA 0 SEEN /hpf (5-10)
[2025-05-01 19:03] LABS: Prothrombin Time (Protime)PT. 28.1 SECONDS (11.7-14.9)
[2025-05-01 19:15] VITALS: O2SAT 89
[2025-05-01 19:18] LABS: Color, Urine Yellow (Yellow); Glucose, Dipstick Normal (Normal); Ketone-Dipstick Negative (Negative); Leukocyte Esterase-Dipstick Negative /ul (Negative); Nitrite-Dipstick Negative (Negative); Occult Blood-Urine 10 /ul (Negative); Protein-Dipstick 30 mg/dl (Negative); Specific Gravity, Urine 1.015 (1.002-1.030); Urine Bilirubin Dipstick Negative (Negative)
[2025-05-01 19:22] VITALS: BP 122/80; PULSE 100; RESP 22; O2SAT 98
[2025-05-01 19:57] LABS: Mucous, Urine 1+ /hpf (<or=2+); Red Blood Cells-Urine 0-5 SEEN /hpf (0-5)
[2025-05-01] MEDS: 0.9% Normal Saline (1000mL) 1,000 ML 75 ML IV (20:30)
[2025-05-01] MEDS: Piperacil/Tazobactam 3.375 GM in 0.9% Normal Saline (50mL MB+) 50 ML IV (20:30)
[2025-05-01 21:00] VITALS: BP 144/80; PULSE 118; RESP 22; O2SAT 97
[2025-05-01 23:00] VITALS: BP 147/83; PULSE 109; RESP 22; O2SAT 97
[2025-05-02 00:23] VITALS: BP 151/84; PULSE 117; RESP 24; TEMP 37.1; O2SAT 94
== END 2025-05-02 00:25 | disposition short-term general hospital (02) ==
PROVIDERS: Emergency Provider Emergency Medicine; PCP Family Medicine; Visit Provider Emergency Medicine
DX: R10.10 Upper abdominal pain, unspecified (principal); I11.0 Hypertensive heart disease with heart failure; I50.9 Heart failure, unspecified; J44.9 Chronic obstructive pulmonary disease, unspecified; I48.92 Unspecified atrial flutter; Q87.40 Marfan syndrome, unspecified; K80.64 Calculus of gallbladder and bile duct with chronic cholecystitis without obstruction; Z79.01 Long term (current) use of anticoagulants; Z90.710 Acquired absence of both cervix and uterus; E78.5 Hyperlipidemia, unspecified; K21.9 Gastro-esophageal reflux disease without esophagitis; Z79.899 Other long term (current) 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
CPT/HCPCS: 74177; 80048; 80076; 81001; 83605; 85025; 85610; 93005; 96361; 96365; 96366; 96368; 96375; 99285; Q9967; A4216; J2405